=== PATIENT | male | born 1940 | race Caucasian/White ===

== ENCOUNTER 2019-03-23 09:45 | Day surgery (SDC) | payer MEDICARE, SELFPAY ==
[2019-03-13 13:26] VITALS: BMI 26.9
--- NOTE | 2019-03-14 08:08 | HP_ITS ---
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 Is patient in pain?: No Allergies Iodinated Contrast- Oral and IV Dye [CONTRASTS] Allergy (Verified 03/13/19 13:17) Hives azelaic acid [From Finacea] Adverse Reaction (Verified 03/13/19 13:17) Rash cephalexin [From Keflex] Adverse Reaction (Verified 03/13/19 13:17) Rash ciprofloxacin [From Cipro] Adverse Reaction (Verified 03/13/19 13:17) Nausea doxazosin [From Cardura] Adverse Reaction (Verified 03/13/19 13:17) Nausea ketoconazole Adverse Reaction (Verified 03/13/19 13:17) Diarrhea levofloxacin Adverse Reaction (Verified 03/13/19 13:17) Rash meloxicam [From Mobic] Adverse Reaction (Verified 03/13/19 13:17) Nausea misoprostol [From Cytotec] Adverse Reaction (Verified 03/13/19 13:17) Nausea nabumetone [From Relafen] Adverse Reaction (Verified 03/13/19 13:17) Nausea NSAIDS (Non-Steroidal Anti-Inflamma Adverse Reaction (Verified 03/13/19 13:17) Nausea sulfamethoxazole [From Bactrim] Adverse Reaction (Verified 03/13/19 13:17) Nausea terbinafine Adverse Reaction (Verified 03/13/19 13:17) Nausea trimethoprim [From Bactrim] Adverse Reaction (Verified 03/13/19 13:17) Nausea valdecoxib [From Bextra] Adverse Reaction (Verified 03/13/19 13:17) Other Medications Acetaminophen [Tylenol] 500 mg PO PRN PRN 04/03/17 [History Confirmed 03/13/19] Butalbital/Aspirin/Caffeine [Onzhyvigau-LFC-Usmugljp Cap] 1 cap PO DAILY PRN PRN 04/03/17 [History Confirmed 03/13/19] Finasteride [Proscar] 5 mg PO DAILY 04/03/17 [History Confirmed 03/13/19] Hydrochlorothiazide 12.5 mg PO DAILY 04/03/17 [History Confirmed 03/13/19] Hydrocortisone 2.5% Crm 1 applic TOPICAL PRN PRN 04/03/17 [History Confirmed 03/13/19] Meclizine HCl [Antivert] 25 mg PO TID PRN PRN #14 tab 04/03/17 [Rx Confirmed 03/13/19] Multivitamin 1 tab PO DAILY 04/03/17 [History Confirmed 03/13/19] Quinapril HCl [Accupril] 5 mg PO DAILY 04/03/17 [History Confirmed 03/13/19] Tamsulosin HCl [Flomax] 0.4 mg PO DAILY 04/03/17 [History Confirmed 03/13/19] metroNIDAZOLE 0.75% [Metrogel Vaginal] 1 applicatio TOPICAL BID 04/03/17 [History Confirmed 03/13/19] doxycycline hyclate 20 mg tablet 100 mg PO ONCE tab 03/13/19 [History Confirmed 03/13/19] sildenafil 50 mg tablet 20 mg PO PRN PRN tab 03/13/19 [History Confirmed 03/13/19] peg 3350-electrolytes 236 gram-22.74 gram-6.74 gram-5.86 gram solution 4,000 ml PO ONCE #4000 ml 03/14/19 [Rx] PFSH Medical History (Updated 03/13/19 @ 13:34 by Anh Baeza) Abdominal pain (Acute) Arthritis (Acute) BPH (benign prostatic hyperplasia) (Acute) History of back problems (Acute) History of hiatal hernia (Acute) History of kidney stones (Acute) Right inguinal hernia (Acute) Hypertension (Chronic) Surgical History (Updated 03/13/19 @ 13:14 by Anh Baeza) History of bilateral cataract extraction (Acute) History of hemorrhoidectomy (Acute) History of laparoscopic cholecystectomy (Acute) Hx of repair of left rotator cuff (Acute) Hx of repair of right rotator cuff (Acute) history exacorporeal shock wave lithrotripsy (Acute) history lap hiatal hernia repair (Acute) history repair left thumb (Acute) history ureteral stent insertion (Acute) Family History (Updated 03/13/19 @ 13:15 by Anh Baeza) Father Colon cancer Mother Cancer lung Hypertension Brother Cancer Social History (Updated 03/14/19 @ 08:08 by Jasmyne Mahan PA-C) Smoking Status: Former smoker alcohol intake: current alcohol intake frequency: a few times a month substance use type: does not use HPI HPI HPI: JAVIER BOND, is a 78 M who presents to the office today for HPI HPI Surgical H&P: Yes HPI: JAVIER BOND, is a 78 pleasant, gentleman who presents to the office today for possible right inguinal hernia and colonoscopy screening. Patient was evaluated by his PCP, Dr. Lisandro Alvarado, with the complaint at that time of mid abdominal/umbilical pain. Patient notes since August he hasn't felt well overall. Patient notes he felt nauseated intermittently. His appetite has been good. He has also within the last 2-3 weeks noted increasing constipation which has improved with Miralax and including fruit in every meal. Patient states his last colonoscopy was with Dr. Venegas on 08/15/2013 findings included non- bleeding internal hemorrhoids, redundant colon otherwise unremarkable colon. Recommended repeat in 5 years, however his PCP noted he did not have to have anymore. Patient notes his father at age 42 from colon cancer. Patient also notes he has urgency with bowel movements and they are more liquidy when this occurs. He is unsure of which certain food that may aggravates this. Patient does note he has gradually lost weight unintentionally. Looking back through charting, last year he weighed 196 and now currently weighs 184 pounds. Patient denies dysphagia, heartburn symptoms. He notes Dr. Shashank Alvarado performed a laparoscopic Rupinder in 2008. Patient was unsure if his abdominal discomfort could be from the repair, however he does state the symptoms he was having prior to that procedure are resolved and have not returned. Patient was evaluated by Shari Valdivia for a colonoscopy 2 weeks ago, however patient was also noting right groin discomfort which can become sharp. It was brought to the attention of the patient that Dr. Shashank Alvarado does perform colonoscopies and can evaluate the patient for a right inguinal hernia. Patient called into our office this morning in regards to the right groin bulge and was asking symptoms to look out for in case this were to become an emergency. Patient has paid very close attention to bowel movements as to not strain. He was scheduled to see Dr. Alvarado upon his return on 03/22, however was anxious in regards to the groin pain. Patient notes again dating back to August he has felt intermittent nausea. No lack of appetite. He has paid very close attention to his bowels as noted above. 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 Patient noticed a burning, sometimes sharp sensation in his right groin when he was lifting suit cases this past time to [place]. Patient stated he had not noticed a bulge until more recently, December maybe January per patient. Patient states at the end of the day, he notes the bulge is more noticeable and by the morning the bulge is completely gone. He has not tried to reduce the bulge himself. He notes he has not had to because it reduces itself. Patient denies previous hernia repair other than the Hiatal hernia. Patient denies cardiac and pulmonary disease. He denies previous myocardial infarction, stroke and blood clots. Patient does note swelling of the legs and ankles bilaterally. Today he notes his right ankle is more swollen than the left. He denies wearing compression stockings. He does note having neuropathy, which he believes may be from his back. He notes having chronic back pain for which he sees Dr. Schrader, pain management for. Patient notes it is hard to sit for long periods of time. He is unable to exercise on a regular basis due to the back pain. He used to swim on a regular basis however he is unable to do so. Patient also has a history of BPH for which he is on Flomax for. ROS General General: Yes weight change and fatigue; no appetite, colon cancer, breast cancer or weakness HEENT HEENT: No difficulty swallowing, eye injury, eye surgery, swollen glands or hoarseness Endo Endocrine: No thyroid disease, diabetes mellitus, thyroid cancer, Hair loss, heat intolerance or cold intolerance Skin Skin: No rash or changing moles Breast Breast: No left breast lump, right breast lump, nipple discharge, breast pain, abnormal mammogram, abnormal US or breast enlargement Musc Musculoskeletal: Yes back problems and arthritis; no rheumatoid arthritis, gout or joint pain Cardio Cardiovascular: Yes high blood pressure; no murmur, pacemaker, heart disease, atrial fibrillation, heart attack, heart stent, palpitations, shortness of breat with exertion or chest pain Psych Psychiatric: No depression, anxiety or hearing voices Resp Respiratory: No shortness of breath, No sleep apnea, No cough, No COPD, No asthma, No emphysema, No wheezing Gastro Gastrointestinal: Yes abdominal pain, Yes nausea or vomiting, Yes diarrhea, Yes constipation, No blood in stool, No acid reflux, Yes hemorrhoids, No ulcers, No gallbladder problem, No black,tarry stools John Hematologic: No blood thinners, No blood disorders, No bleeding, No anemia, No blood clots Neuro Neurologic: No system reviewed and no additional complaints, except as docu, No as per HPI, No abnormal walking, No abnormal hearing, No abnormal movements, No abnormal speech, No behavioral changes, No burning sensations, No confusion, No seizure-like activity, No unsteadiness, No dizziness, No localized weakness, No frequent falls, No headache(s), No lack of coordination, No loss of vision, No memory loss, No numbness, No other visual disturbances, No radiating pain, No restless legs, No sensory deficit, No fainting, No tingling, No tremor(s), No weakness, No other Exam Const General: cooperative, healthy appearing, comfortable, no acute distress [facility] Head: normal to inspection Eyes General: appearance normal, both eyes and all related structures Neck Neck: normal visual inspection Neck mass: No Carotids: no bruits Chest Breast Palpation: No nipple discharge Resp Effort & Inspection: normal respiratory effort Auscultation: clear to auscultation bilaterally Cardio Rate: regular rate Rhythm: regular rhythm Heart Sounds: no murmurs GI Inspection: normal to inspection Palpation: soft, hernia (bilateral reducible inguinal hernias. No umbilical hernia palpated) Auscultation: normal bowel sounds Other: Deep concave umbilicus noted. Again no umbilical hernia appreciated on exam. Bilateral inguinal hernias with notable bowel involvement. Easily reducible. Skin General: no rashes or lesions noted Neuro General: no focal motor deficits, CN's II-XI intact bilaterally Extrem Other: Bilateral ankle swelling. No edema noted. No calf pain noted. Lack of hair bilaterally noted on lower legs. Psych Appearance: grossly normal Affect: normal affect Assessment & Plan 1. Hernia K46.9 2. Family history of colon cancer in father Z80.0 3. Change in bowel habits R19.4 4. Non-recurrent bilateral inguinal hernia without obstruction or gangrene K40.20 5. Right lower quadrant abdominal pain R10.31 Plan I am seeing this patient in Dr. Alvarado's absence. I am recommending the patient have a colonoscopy to rule out any colonic etiology. Dr. Alvarado will perform a colonoscopy with possible biopsies. We will use Golytely for bowel prep due to patient wanting the best result for bowel prep and noting Miralax does not always help to clean him out. Procedure details, risks and benefits have been explained. He is scheduled for the colonoscopy on 03/[address] Alvarado returns. Patient will follow-up after his colonoscopy with Dr. Alvarado to discuss plan of approach in regards to hernia repair. I have briefly discussed a laparoscopic approach with the patient, however will leave the final decision to Dr. Alvarado. Patient is a very pleasant 78 y/o male who was very appreciative of the quick office visit today. Time spent was 60 minutes. Plan Detail Other Orders Orders: Colonoscopy 03/13/19 Coding Level of Care Code Off vis,new,level 3 Diagnoses Hernia K46.9 Family history of colon cancer in father Z80.0 Change in bowel habits R19.4 Non-recurrent bilateral inguinal hernia without obstruction or gangrene K40.20 ??Obstruction and gangrene presence: without obstruction or gangrene ??Recurrence: non-recurrent Right lower quadrant abdominal pain R10.31 ??Abdominal location: right lower quadrant 03/14/19 0808 <Electronically signed by Jasmyne sinclair PA-C> Date _ Jasmyne Mahan PA-C I concur with the above findings. History and physical has been reviewed. I have re-examined the patient. There are no clinical changes since date of exam.
[2019-03-23 10:09] VITALS: BP 126/65; PULSE 73; RESP 16; TEMP 36.9; O2SAT 96; BMI 24.3
[2019-03-23 11:30] VITALS: BP 103/60; BP 126/65; PULSE 88; RESP 16; TEMP 36.4; O2SAT 97
[2019-03-23 11:35] VITALS: BP 106/61; BP 126/65; PULSE 72; RESP 16; O2SAT 96
[2019-03-23 11:40] VITALS: BP 126/65; BP 98/57; PULSE 82; RESP 16; O2SAT 98
[2019-03-23 11:45] VITALS: BP 104/62; BP 126/65; PULSE 80; RESP 16; TEMP 36.6; O2SAT 97
[2019-03-23 12:00] VITALS: BP 126/65
--- NOTE | 2019-03-28 10:43 | OP.ENDO_ITS ---
03/28/2019 Lisandro Alvarado [address] [place] [address] Re : Colonoscopy procedure for Eric Tariq Dear Dr. Alvarado This procedure was performed on Saturday, March 23, 2019. My impressions and recommendations are as follows: Impressions : - Non-thrombosed external hemorrhoids, non-thrombosed internal hemorrhoids, internal hemorrhoids that prolapse with straining, but spontaneously regress to the resting position (Grade II) and enlarged prostate found on digital rectal exam. - Diverticulosis in the sigmoid colon and in the descending colon. - Tortuous colon. - The examination was otherwise normal. - No specimens collected. Recommendations : - Discharge patient to home. - Resume previous diet. - Continue present medications. - Repeat colonoscopy in 5 years for surveillance. - Return to my office in 1 week. No source for abdominal pain. Plan further evaluation and treatment of hemorrhoids My findings are described in the full procedure note, which is enclosed. If I can be of further assistance, please feel free to contact me at Doctor phone number(s): Work: . Sincerely, Shashank Alvarado MD 03/23/2019 11:38:47 AM This report has been signed electronically.
== END 2019-03-23 12:19 | disposition home or self-care (01) ==
LOC: EN 09:47 → AC 09:47
PROVIDERS: Family Provider Family Medicine; PCP Family Medicine; Referring Provider Family Medicine; Visit Provider Surgery
PROC: 0DJD8ZZ Inspection of Lower Intestinal Tract, Via Natural or Artificial Opening Endoscopic (ICD-10-PCS; CPT 45378; principal; 2019-03-23 10:40)
DX: Z12.11 Encounter for screening for malignant neoplasm of colon (principal); K64.1 Second degree hemorrhoids; K64.4 Residual hemorrhoidal skin tags; K57.30 Diverticulosis of large intestine without perforation or abscess without bleeding; Q43.8 Other specified congenital malformations of intestine; K40.20 Bilateral inguinal hernia, without obstruction or gangrene, not specified as recurrent; K59.00 Constipation, unspecified; I10 Essential (primary) hypertension; M19.90 Unspecified osteoarthritis, unspecified site; M79.89 Other specified soft tissue disorders; M54.9 Dorsalgia, unspecified; G89.29 Other chronic pain; N40.0 Benign prostatic hyperplasia without lower urinary tract symptoms; Z88.8 Allergy status to other drugs, medicaments and biological substances; Z88.6 Allergy status to analgesic agent; Z88.1 Allergy status to other antibiotic agents; Z88.3 Allergy status to other anti-infective agents; Z88.2 Allergy status to sulfonamides; Z87.442 Personal history of urinary calculi; Z87.891 Personal history of nicotine dependence; Z80.0 Family history of malignant neoplasm of digestive organs
CPT/HCPCS: G0105; J7120

== ENCOUNTER 2019-04-13 07:09 | Day surgery (SDC) | payer MEDICARE, SELFPAY ==
--- NOTE | 2019-03-14 08:08 | HP_ITS ---
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 Is patient in pain?: No Allergies Iodinated Contrast- Oral and IV Dye [CONTRASTS] Allergy (Verified 03/13/19 13:17) Hives azelaic acid [From Finacea] Adverse Reaction (Verified 03/13/19 13:17) Rash cephalexin [From Keflex] Adverse Reaction (Verified 03/13/19 13:17) Rash ciprofloxacin [From Cipro] Adverse Reaction (Verified 03/13/19 13:17) Nausea doxazosin [From Cardura] Adverse Reaction (Verified 03/13/19 13:17) Nausea ketoconazole Adverse Reaction (Verified 03/13/19 13:17) Diarrhea levofloxacin Adverse Reaction (Verified 03/13/19 13:17) Rash meloxicam [From Mobic] Adverse Reaction (Verified 03/13/19 13:17) Nausea misoprostol [From Cytotec] Adverse Reaction (Verified 03/13/19 13:17) Nausea nabumetone [From Relafen] Adverse Reaction (Verified 03/13/19 13:17) Nausea NSAIDS (Non-Steroidal Anti-Inflamma Adverse Reaction (Verified 03/13/19 13:17) Nausea sulfamethoxazole [From Bactrim] Adverse Reaction (Verified 03/13/19 13:17) Nausea terbinafine Adverse Reaction (Verified 03/13/19 13:17) Nausea trimethoprim [From Bactrim] Adverse Reaction (Verified 03/13/19 13:17) Nausea valdecoxib [From Bextra] Adverse Reaction (Verified 03/13/19 13:17) Other Medications Acetaminophen [Tylenol] 500 mg PO PRN PRN 04/03/17 [History Confirmed 03/13/19] Butalbital/Aspirin/Caffeine [Dnokowbpto-WAT-Qiskcmfj Cap] 1 cap PO DAILY PRN PRN 04/03/17 [History Confirmed 03/13/19] Finasteride [Proscar] 5 mg PO DAILY 04/03/17 [History Confirmed 03/13/19] Hydrochlorothiazide 12.5 mg PO DAILY 04/03/17 [History Confirmed 03/13/19] Hydrocortisone 2.5% Crm 1 applic TOPICAL PRN PRN 04/03/17 [History Confirmed 03/13/19] Meclizine HCl [Antivert] 25 mg PO TID PRN PRN #14 tab 04/03/17 [Rx Confirmed 03/13/19] Multivitamin 1 tab PO DAILY 04/03/17 [History Confirmed 03/13/19] Quinapril HCl [Accupril] 5 mg PO DAILY 04/03/17 [History Confirmed 03/13/19] Tamsulosin HCl [Flomax] 0.4 mg PO DAILY 04/03/17 [History Confirmed 03/13/19] metroNIDAZOLE 0.75% [Metrogel Vaginal] 1 applicatio TOPICAL BID 04/03/17 [History Confirmed 03/13/19] doxycycline hyclate 20 mg tablet 100 mg PO ONCE tab 03/13/19 [History Confirmed 03/13/19] sildenafil 50 mg tablet 20 mg PO PRN PRN tab 03/13/19 [History Confirmed 03/13/19] peg 3350-electrolytes 236 gram-22.74 gram-6.74 gram-5.86 gram solution 4,000 ml PO ONCE #4000 ml 03/14/19 [Rx] PFSH Medical History (Updated 03/13/19 @ 13:34 by Anh Baeza) Abdominal pain (Acute) Arthritis (Acute) BPH (benign prostatic hyperplasia) (Acute) History of back problems (Acute) History of hiatal hernia (Acute) History of kidney stones (Acute) Right inguinal hernia (Acute) Hypertension (Chronic) Surgical History (Updated 03/13/19 @ 13:14 by Anh Baeza) History of bilateral cataract extraction (Acute) History of hemorrhoidectomy (Acute) History of laparoscopic cholecystectomy (Acute) Hx of repair of left rotator cuff (Acute) Hx of repair of right rotator cuff (Acute) history exacorporeal shock wave lithrotripsy (Acute) history lap hiatal hernia repair (Acute) history repair left thumb (Acute) history ureteral stent insertion (Acute) Family History (Updated 03/13/19 @ 13:15 by Anh Baeza) Father Colon cancer Mother Cancer lung Hypertension Brother Cancer Social History (Updated 03/14/19 @ 08:08 by Jasmyne Mahan PA-C) Smoking Status: Former smoker alcohol intake: current alcohol intake frequency: a few times a month substance use type: does not use HPI HPI HPI: JAVIER BOND, is a 78 M who presents to the office today for HPI HPI Surgical H&P: Yes HPI: JAVIER BOND, is a 78 pleasant, gentleman who presents to the office today for possible right inguinal hernia and colonoscopy screening. Patient was evaluated by his PCP, Dr. Lisandro Alvarado, with the complaint at that time of mid abdominal/umbilical pain. Patient notes since August he hasn't felt well overall. Patient notes he felt nauseated intermittently. His appetite has been good. He has also within the last 2-3 weeks noted increasing constipation which has improved with Miralax and including fruit in every meal. Patient states his last colonoscopy was with Dr. Venegas on 08/15/2013 findings included non- bleeding internal hemorrhoids, redundant colon otherwise unremarkable colon. Recommended repeat in 5 years, however his PCP noted he did not have to have anymore. Patient notes his father at age 42 from colon cancer. Patient also notes he has urgency with bowel movements and they are more liquidy when this occurs. He is unsure of which certain food that may aggravates this. Patient does note he has gradually lost weight unintentionally. Looking back through charting, last year he weighed 196 and now currently weighs 184 pounds. Patient denies dysphagia, heartburn symptoms. He notes Dr. Shashank Alvarado performed a laparoscopic Rupinder in 2008. Patient was unsure if his abdominal discomfort could be from the repair, however he does state the symptoms he was having prior to that procedure are resolved and have not returned. Patient was evaluated by Shari Valdivia for a colonoscopy 2 weeks ago, however patient was also noting right groin discomfort which can become sharp. It was brought to the attention of the patient that Dr. Shashank Alvarado does perform colonoscopies and can evaluate the patient for a right inguinal hernia. Patient called into our office this morning in regards to the right groin bulge and was asking symptoms to look out for in case this were to become an emergency. Patient has paid very close attention to bowel movements as to not strain. He was scheduled to see Dr. Alvarado upon his return on 03/22, however was anxious in regards to the groin pain. Patient notes again dating back to August he has felt intermittent nausea. No lack of appetite. He has paid very close attention to his bowels as noted above. 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 Patient noticed a burning, sometimes sharp sensation in his right groin when he was lifting suit cases this past time to [place]. Patient stated he had not noticed a bulge until more recently, December maybe January per patient. Patient states at the end of the day, he notes the bulge is more noticeable and by the morning the bulge is completely gone. He has not tried to reduce the bulge himself. He notes he has not had to because it reduces itself. Patient denies previous hernia repair other than the Hiatal hernia. Patient denies cardiac and pulmonary disease. He denies previous myocardial infarction, stroke and blood clots. Patient does note swelling of the legs and ankles bilaterally. Today he notes his right ankle is more swollen than the left. He denies wearing compression stockings. He does note having neuropathy, which he believes may be from his back. He notes having chronic back pain for which he sees Dr. Schrader, pain management for. Patient notes it is hard to sit for long periods of time. He is unable to exercise on a regular basis due to the back pain. He used to swim on a regular basis however he is unable to do so. Patient also has a history of BPH for which he is on Flomax for. ROS General General: Yes weight change and fatigue; no appetite, colon cancer, breast cancer or weakness HEENT HEENT: No difficulty swallowing, eye injury, eye surgery, swollen glands or hoarseness Endo Endocrine: No thyroid disease, diabetes mellitus, thyroid cancer, Hair loss, heat intolerance or cold intolerance Skin Skin: No rash or changing moles Breast Breast: No left breast lump, right breast lump, nipple discharge, breast pain, abnormal mammogram, abnormal US or breast enlargement Musc Musculoskeletal: Yes back problems and arthritis; no rheumatoid arthritis, gout or joint pain Cardio Cardiovascular: Yes high blood pressure; no murmur, pacemaker, heart disease, atrial fibrillation, heart attack, heart stent, palpitations, shortness of breat with exertion or chest pain Psych Psychiatric: No depression, anxiety or hearing voices Resp Respiratory: No shortness of breath, No sleep apnea, No cough, No COPD, No asthma, No emphysema, No wheezing Gastro Gastrointestinal: Yes abdominal pain, Yes nausea or vomiting, Yes diarrhea, Yes constipation, No blood in stool, No acid reflux, Yes hemorrhoids, No ulcers, No gallbladder problem, No black,tarry stools John Hematologic: No blood thinners, No blood disorders, No bleeding, No anemia, No blood clots Neuro Neurologic: No system reviewed and no additional complaints, except as docu, No as per HPI, No abnormal walking, No abnormal hearing, No abnormal movements, No abnormal speech, No behavioral changes, No burning sensations, No confusion, No seizure-like activity, No unsteadiness, No dizziness, No localized weakness, No frequent falls, No headache(s), No lack of coordination, No loss of vision, No memory loss, No numbness, No other visual disturbances, No radiating pain, No restless legs, No sensory deficit, No fainting, No tingling, No tremor(s), No weakness, No other Exam Const General: cooperative, healthy appearing, comfortable, no acute distress [facility] Head: normal to inspection Eyes General: appearance normal, both eyes and all related structures Neck Neck: normal visual inspection Neck mass: No Carotids: no bruits Chest Breast Palpation: No nipple discharge Resp Effort & Inspection: normal respiratory effort Auscultation: clear to auscultation bilaterally Cardio Rate: regular rate Rhythm: regular rhythm Heart Sounds: no murmurs GI Inspection: normal to inspection Palpation: soft, hernia (bilateral reducible inguinal hernias. No umbilical hernia palpated) Auscultation: normal bowel sounds Other: Deep concave umbilicus noted. Again no umbilical hernia appreciated on exam. Bilateral inguinal hernias with notable bowel involvement. Easily reducible. Skin General: no rashes or lesions noted Neuro General: no focal motor deficits, CN's II-XI intact bilaterally Extrem Other: Bilateral ankle swelling. No edema noted. No calf pain noted. Lack of hair bilaterally noted on lower legs. Psych Appearance: grossly normal Affect: normal affect Assessment & Plan 1. Hernia K46.9 2. Family history of colon cancer in father Z80.0 3. Change in bowel habits R19.4 4. Non-recurrent bilateral inguinal hernia without obstruction or gangrene K40.20 5. Right lower quadrant abdominal pain R10.31 Plan I am seeing this patient in Dr. Alvarado's absence. I am recommending the patient have a colonoscopy to rule out any colonic etiology. Dr. Alvarado will perform a colonoscopy with possible biopsies. We will use Golytely for bowel prep due to patient wanting the best result for bowel prep and noting Miralax does not always help to clean him out. Procedure details, risks and benefits have been explained. He is scheduled for the colonoscopy on 03/[address] Alvarado returns. Patient will follow-up after his colonoscopy with Dr. Alvarado to discuss plan of approach in regards to hernia repair. I have briefly discussed a laparoscopic approach with the patient, however will leave the final decision to Dr. Alvarado. Patient is a very pleasant 78 y/o male who was very appreciative of the quick office visit today. Time spent was 60 minutes. Plan Detail Other Orders Orders: Colonoscopy 03/13/19 Coding Level of Care Code Off vis,new,level 3 Diagnoses Hernia K46.9 Family history of colon cancer in father Z80.0 Change in bowel habits R19.4 Non-recurrent bilateral inguinal hernia without obstruction or gangrene K40.20 ??Obstruction and gangrene presence: without obstruction or gangrene ??Recurrence: non-recurrent Right lower quadrant abdominal pain R10.31 ??Abdominal location: right lower quadrant 03/14/19 0808 <Electronically signed by Jasmyne sinclair PA-C> Date _ Jasmyne Mahan PA-C I have re-examined the patient. There are no clinical changes since date of exam.
[2019-03-30 15:00] VITALS: BMI 24.3
--- NOTE | 2019-04-10 09:00 | EKG12_ITS ---
Test Reason : PRE-OP Blood Pressure : / mmHG Vent. Rate : 072 BPM Atrial Rate : 072 BPM P-R Int : 174 ms QRS Dur : 090 ms QT Int : 392 ms P-R-T Axes : 075 020 062 degrees QTc Int : 429 ms Sinus rhythm with occasional Premature ventricular complexes Otherwise normal ECG Confirmed by MARINO FAIRBANKS, JEFF ([id number]), book editor BENY MASTERS ([id number]) on 04/12/2019 1:31:23 PM Referred By: Shashank Alvarado Confirmed By:JEFF PICHARDO MD
[2019-04-10 09:49] LABS: Hematocrit 43.8 % (40-54); Hemoglobin 14.2 g/dL (13.0-16.5); Mean Corp Hgb Conc 32.4 g/dL (32-36); Mean Corpuscular Hgb 30.3 pg (27.0-32.0); Mean Corpuscular Volume 93.6 fL (80-94); Mean Platelet Vol. 10.7 fl (6.2-12.0); Platelet Count 154 K/mm3 (150-450); RBC Distribution Width CV 12.2 % (11.6-14.6); RBC Distribution Width SD 42.3 fl (35.1-43.9); Red Blood Count 4.68 M/mm3 (4.6-6.2); White Blood Count 5.2 K/mm3 (4.4-11.0)
[2019-04-10 10:15] LABS: Anion Gap 5 (5-15); BUN 15 mg/dL (7-18); BUN/Creat Ratio 14.3 RATIO (10-20); Calcium,Total 9.6 mg/dL (8.5-10.1); Chloride 104 mmol/L (98-107); Creatinine, Serum 1.05 mg/dL (0.70-1.30); EST Glomerular Filtration Rate 73 mL/min (>60); Est Glom Filt Rate - Afr Amer 88 mL/min (>60); Glucose 86 mg/dL (74-106); Potassium 3.9 mmol/L (3.5-5.1); Sodium Level 142 mmol/L (136-145)
[2019-04-13] VITALS (9 sets, daily range): BP systolic 108–142; BP diastolic 52–82; PULSE 70–82; RESP 16–18; TEMP 36.3–36.8; O2SAT 97–100; BMI 24.9
--- NOTE | 2019-04-13 08:20 | HP.PCM_ITS ---
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 Required: No Is patient in pain?: No Allergies Iodinated Contrast- Oral and IV Dye [CONTRASTS] Allergy (Verified 03/30/19 15:00) Hives azelaic acid [From Finacea] Adverse Reaction (Verified 03/30/19 15:00) Rash cephalexin [From Keflex] Adverse Reaction (Verified 03/30/19 15:00) Rash ciprofloxacin [From Cipro] Adverse Reaction (Verified 03/30/19 15:00) Nausea doxazosin [From Cardura] Adverse Reaction (Verified 03/30/19 15:00) Nausea ketoconazole Adverse Reaction (Verified 03/30/19 15:00) Diarrhea levofloxacin Adverse Reaction (Verified 03/30/19 15:00) Rash meloxicam [From Mobic] Adverse Reaction (Verified 03/30/19 15:00) Nausea misoprostol [From Cytotec] Adverse Reaction (Verified 03/30/19 15:00) Nausea nabumetone [From Relafen] Adverse Reaction (Verified 03/30/19 15:00) Nausea NSAIDS (Non-Steroidal Anti-Inflamma Adverse Reaction (Verified 03/30/19 15:00) Nausea sulfamethoxazole [From Bactrim] Adverse Reaction (Verified 03/30/19 15:00) Nausea terbinafine Adverse Reaction (Verified 03/30/19 15:00) Nausea trimethoprim [From Bactrim] Adverse Reaction (Verified 03/30/19 15:00) Nausea valdecoxib [From Bextra] Adverse Reaction (Verified 03/30/19 15:00) Other Medications Acetaminophen [Tylenol] 500 mg PO PRN PRN 04/03/17 [History Confirmed 03/30/19] Butalbital/Aspirin/Caffeine [Opyyeuggkr-OGM-Mxamrmhk Cap] 1 cap PO DAILY PRN PRN 04/03/17 [History Confirmed 03/30/19] Finasteride [Proscar] 5 mg PO DAILY 04/03/17 [History Confirmed 03/30/19] Hydrochlorothiazide 12.5 mg PO DAILY 04/03/17 [History Confirmed 03/30/19] Hydrocortisone 2.5% Crm 1 applic TOPICAL PRN PRN 04/03/17 [History Confirmed 03/30/19] Meclizine HCl [Antivert] 25 mg PO TID PRN PRN #14 tab 04/03/17 [Rx Confirmed 03/30/19] Multivitamin 1 tab PO DAILY 04/03/17 [History Confirmed 03/30/19] Quinapril HCl [Accupril] 5 mg PO DAILY 04/03/17 [History Confirmed 03/30/19] Tamsulosin HCl [Flomax] 0.4 mg PO DAILY 04/03/17 [History Confirmed 03/30/19] metroNIDAZOLE 0.75% [Metrogel Vaginal] 1 applicatio TOPICAL BID 04/03/17 [History Confirmed 03/30/19] doxycycline hyclate 20 mg tablet 100 mg PO MOWEFR tab 03/13/19 [History Confirmed 03/30/19] sildenafil 50 mg tablet 20 mg PO PRN PRN tab 03/13/19 [History Confirmed 03/30/19] PFSH Medical History (Updated 03/30/19 @ 18:21 by Shashank Alvarado MD) Inguinal hernia bilateral, non-recurrent (Acute) Abdominal pain (Acute) Arthritis (Acute) BPH (benign prostatic hyperplasia) (Acute) History of back problems (Acute) History of hiatal hernia (Acute) History of kidney stones (Acute) Right inguinal hernia (Acute) Hypertension (Chronic) Surgical History (Updated 03/30/19 @ 14:59 by Lelia Wolfe) History of bilateral cataract extraction (Acute) History of colonoscopy (Acute ~02/2019) History of hemorrhoidectomy (Acute) History of laparoscopic cholecystectomy (Acute) Hx of repair of left rotator cuff (Acute) Hx of repair of right rotator cuff (Acute) history exacorporeal shock wave lithrotripsy (Acute) history lap hiatal hernia repair (Acute) history repair left thumb (Acute) history ureteral stent insertion (Acute) Family History Father Colon cancer Mother Cancer lung Hypertension Brother Cancer Social History (Updated 03/30/19 @ 18:23 by Shashank Alvarado MD) Smoking Status: Former smoker alcohol intake: current alcohol intake frequency: a few times a month substance use type: does not use HPI HPI HPI: ERIC BOND, is a 78 M who presents to the office today for HPI HPI Surgical H&P: Yes HPI: ERIC BOND, is a 78 M who presents to the office today for surgical follow-up of a right inguinal hernia. He was seen by Jasmyne Mahan in my absence on March 13, 2019. Her history is as follows: HPI HPI Surgical H&P: Yes HPI: ERIC BOND, is a 78 pleasant, gentleman who presents to the office today for possible right inguinal hernia and colonoscopy screening. Patient was evaluated by his PCP, Dr. Lisandro Alvarado, with the complaint at that time of mid abdominal/umbilical pain. Patient notes since August he hasn't felt well overall. Patient notes he felt nauseated intermittently. His appetite has been good. He has also within the last 2-3 weeks noted increasing constipation which has improved with Miralax and including fruit in every meal. Patient states his last colonoscopy was with Dr. Venegas on 08/15/2013 findings included non- bleeding internal hemorrhoids, redundant colon otherwise unremarkable colon. Recommended repeat in 5 years, however his PCP noted he did not have to have anymore. Patient notes his father at age 42 from colon cancer. Patient also notes he has urgency with bowel movements and they are more liquidy when this occurs. He is unsure of which certain food that may aggravates this. Patient does note he has gradually lost weight unintentionally. Looking back through charting, last year he weighed 196 and now currently weighs 184 pounds. Patient denies dysphagia, heartburn symptoms. He notes Dr. Shashank Alvarado performed a laparoscopic Rupinder in 2008. Patient was unsure if his abdominal discomfort could be from the repair, however he does state the symptoms he was having prior to that procedure are resolved and have not returned. Patient was evaluated by Shari Valdivia for a colonoscopy 2 weeks ago, however patient was also noting right groin discomfort which can become sharp. It was brought to the attention of the patient that Dr. Shashank Alvarado does perform colonoscopies and can evaluate the patient for a right inguinal hernia. Patient called into our office this morning in regards to the right groin bulge and was asking symptoms to look out for in case this were to become an emergency. Patient has paid very close attention to bowel movements as to not strain. He was scheduled to see Dr. Alvarado upon his return on 03/22, however was anxious in regards to the groin pain. Patient notes again dating back to August he has felt intermittent nausea. No lack of appetite. He has paid very close attention to his bowels as noted above. 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 Patient noticed a burning, sometimes sharp sensation in his right groin when he was lifting suit cases this past time to [place]. Patient stated he had not noticed a bulge until more recently, December maybe January per patient. Patient states at the end of the day, he notes the bulge is more noticeable and by the morning the bulge is completely gone. He has not tried to reduce the bulge himself. He notes he has not had to because it reduces itself. Patient denies previous hernia repair other than the Hiatal hernia. Patient denies cardiac and pulmonary disease. He denies previous myocardial infarction, stroke and blood clots. Patient does note swelling of the legs and ankles bilaterally. Today he notes his right ankle is more swollen than the left. He denies wearing compression stockings. He does note having neuropathy, which he believes may be from his back. He notes having chronic back pain for which he sees Dr. Schrader, pain management for. Patient notes it is hard to sit for long periods of time. He is unable to exercise on a regular basis due to the back pain. He used to swim on a regular basis however he is unable to do so. Patient also has a history of BPH for which he is on Flomax for. I subsequently proceed with colonoscopy with results as noted: [facility] Medical Records Department [address] [place] [address] Operative Report - Endoscopy MR#: [id number]:[id number] Name: ERIC BOND Loida #:[id number] : [id number]: Shashank Alvarado MD PCP:Lisandro Alvarado III, MD Status:DEP [facility] 03/28/2019 Lisandro Alvarado Iii [address] [place] [address] Re : Colonoscopy procedure for Eric Bond Dear Dr. Alvarado This procedure was performed on Saturday, March 23, 2019. My impressions and recommendations are as follows: Impressions : - Non-thrombosed external hemorrhoids, non-thrombosed internal hemorrhoids, internal hemorrhoids that prolapse with straining, but spontaneously regress to the resting position (Grade II) and enlarged prostate found on digital rectal exam. - Diverticulosis in the sigmoid colon and in the descending colon. - Tortuous colon. - The examination was otherwise normal. - No specimens collected. Recommendations : - Discharge patient to home. - Resume previous diet. - Continue present medications. - Repeat colonoscopy in 5 years for surveillance. - Return to my office in 1 week. No source for abdominal pain. Plan further evaluation and treatment of hemorrhoids My findings are described in the full procedure note, which is enclosed. If I can be of further assistance, please feel free to contact me at Doctor phone number(s): Work: . Sincerely, Shashank Alvarado MD 03/23/2019 11:38:47 AM This report has been signed electronically. 03/28/19 1043 Date Shashank Alvarado MD On today's visit patient complains of a very focal sharp pain that occurred in the right groin last night. It was able to resolve. We tried to retrieve previous operative notes from his lap scopic Rupinder fundoplication but were unable to. We have evidence March 11 of where I performed a laparoscopic cholecystectomy with chronic cholecystitis identified. That was performed at the same time that a Rupinder fundoplication was performed. I only have the pathology results. The patient was questioning as to why the operation took 4 hours rather than 2 hours. He states I saw something black. I do not have recollection of that and cannot obtain the previous records. ROS General General: Yes weight change and fatigue; no appetite, colon cancer, breast cancer or weakness HEENT HEENT: No difficulty swallowing, eye injury, eye surgery, swollen glands or hoarseness Endo Endocrine: No thyroid disease, diabetes mellitus, thyroid cancer, Hair loss, heat intolerance or cold intolerance Skin Skin: No rash or changing moles Breast Breast: No left breast lump, right breast lump, nipple discharge, breast pain, abnormal mammogram, abnormal US or breast enlargement Musc Musculoskeletal: Yes back problems and arthritis; no rheumatoid arthritis, gout or joint pain Cardio Cardiovascular: Yes high blood pressure; no murmur, pacemaker, heart disease, atrial fibrillation, heart attack, heart stent, palpitations, shortness of breat with exertion or chest pain Psych Psychiatric: No depression, anxiety or hearing voices Resp Respiratory: No shortness of breath, No sleep apnea, No cough, No COPD, No asthma, No emphysema, No wheezing Gastro Gastrointestinal: Yes abdominal pain, Yes nausea or vomiting, Yes diarrhea, Yes constipation, No blood in stool, No acid reflux, Yes hemorrhoids, No ulcers, No gallbladder problem, No black,tarry stools John Hematologic: No blood thinners, No blood disorders, No bleeding, No anemia, No blood clots Neuro Neurologic: No weakness Exam Const General: cooperative, healthy appearing, comfortable, no acute distress Nutritional Appearance: underweight Orientation: alert, awake, oriented x3 HENMT Head: normal to inspection Chest Breast Palpation: No nipple discharge Resp Effort & Inspection: normal respiratory effort Auscultation: clear to auscultation bilaterally Cardio Rate: regular rate Rhythm: regular rhythm Heart Sounds: no murmurs GI Palpation: soft, no hepatosplenomegaly Percussion: normal to percussion Other: Testicles are descended bilaterally. Obvious indirect right inguinal hernia easily reducible. Small defect at the left internal ring. Nontender Skin General: no rashes or lesions noted Neuro Cognition: normal cognition Extrem General: no calf tenderness bilaterally Psych Affect: normal affect Assessment & Plan Problems 1. Non-recurrent bilateral inguinal hernia without obstruction or gangrene K40.20 Plan Symptomatic indirect right inguinal hernia. Small asymptomatic left inguinal hernia. In this 78-year-old gentleman I am recommending a right inguinal herniorrhaphy with mesh performed in the Dary technique under monitored anesthesia care and local anesthetic. In detail I have described the technique, benefit, risks, alternatives. We discussed include utilization of mesh. We discussed the risk of recurrence. I have additionally discussed with the patient recommendations as to how he can keep this area nicely reduced leading up until the time of surgery. He has had an opportunity to ask and have questions answered. We will schedule and proceed at his discretion. I very much appreciate the kind opportunity of assisting with his surgical care. The patient has no acute findings on his colonoscopy. Family history of colon cancer in his father. Follow-up colonoscopy recommended at 5 years. CC: Dr. Lisandro Alvarado, ANNETTE Alvarado M.D., F.A.C.S. Coding Level of Care Code Off vis,est,level 3 Diagnoses Non-recurrent bilateral inguinal hernia without obstruction or gangrene K40.20 ??Obstruction and gangrene presence: without obstruction or gangrene ??Recurrence: non-recurrent 03/30/19 1824 <Electronically signed by Shashank joshua MD> Date _ Shashank Alvarado MD Cosigner Signature: Date (if applicable) CC: Lisandro Alvarado III, MD ~ I have re-examined the patient. There are no clinical changes since date of exam.
--- NOTE | 2019-04-13 08:21 | DCINST_ITS ---
Discharge Diet: Light diet - advance as tolerated - if you have questions about your diet instructions, please talk to you doctor. Discharge Activity: May Not Drive - for 1 week or while taking narcotic pain medicine. May shower in (days): 1 Lifting Restrictions: 10 pounds Call your doctor if your incision/area has: Continuous Slow Oozing, Sudden Increased Bleeding, Increased Pain/ Swelling, Increased Redness, Foul Smelling Discharge Call your doctor if you observe: Fever of 101 or Higher Suture Line Care: Avoid Pulling/Pushing, Avoid Pinching/Bending Additional Dressing/Incision Instructions:: Change or remove dressing in 4 days. Leave steri-strips in place for 1 week. Allergies/Adverse Reactions: Allergies Iodinated Contrast- Oral and IV Dye [CONTRASTS] Allergy (Verified 04/09/19 10:13) Hives azelaic acid [From Finacea] Adverse Reaction (Verified 04/09/19 10:13) Rash cephalexin [From Keflex] Adverse Reaction (Verified 04/09/19 10:13) Rash ciprofloxacin [From Cipro] Adverse Reaction (Verified 04/09/19 10:13) Nausea doxazosin [From Cardura] Adverse Reaction (Verified 04/09/19 10:13) Nausea ketoconazole Adverse Reaction (Verified 04/09/19 10:13) Diarrhea levofloxacin Adverse Reaction (Verified 04/09/19 10:13) Rash meloxicam [From Mobic] Adverse Reaction (Verified 04/09/19 10:13) Nausea misoprostol [From Cytotec] Adverse Reaction (Verified 04/09/19 10:13) Nausea nabumetone [From Relafen] Adverse Reaction (Verified 04/09/19 10:13) Nausea NSAIDS (Non-Steroidal Anti-Inflamma Adverse Reaction (Verified 04/09/19 10:13) Nausea sulfamethoxazole [From Bactrim] Adverse Reaction (Verified 04/09/19 10:13) Nausea terbinafine Adverse Reaction (Verified 04/09/19 10:13) Nausea trimethoprim [From Bactrim] Adverse Reaction (Verified 04/09/19 10:13) Nausea valdecoxib [From Bextra] Adverse Reaction (Verified 04/09/19 10:13) Other Medications to take at Discharge Acetaminophen [Tylenol] 500 mg PO PRN PRN 04/03/17 Butalbital/Aspirin/Caffeine [Uvoledxpnh-LRT-Hyivzsoi Cap] 1 cap PO DAILY PRN PRN 04/03/17 Finasteride [Proscar] 5 mg PO DAILY 04/03/17 Hydrochlorothiazide 12.5 mg PO DAILY 04/03/17 Hydrocortisone 2.5% Crm 1 applic TOPICAL PRN PRN 04/03/17 Meclizine HCl [Antivert] 25 mg PO TID PRN PRN #14 tab 04/03/17 Multivitamin 1 tab PO DAILY 04/03/17 Quinapril HCl [Accupril] 5 mg PO DAILY 04/03/17 Tamsulosin HCl [Flomax] 0.4 mg PO DAILY 04/03/17 metroNIDAZOLE 0.75% [Metrogel Vaginal] 1 applicatio TOPICAL BID 04/03/17 doxycycline hyclate 20 mg tablet 100 mg PO MOWEFR tab 03/13/19 sildenafil 50 mg tablet 20 mg PO PRN PRN tab 03/13/19 Primary Care Physician: Lisandro Alvarado III, MD [Primary Care Provider] - Test Results: Test results from this visit will be discussed in further detail at your follow- up appointment, if applicable. Please Follow Up With: Shashank Alvarado MD - [phone] When: Call to make an appointment to be seen in about 10 days.
--- NOTE | 2019-04-13 08:45 | HERN_PTH ---
PATIENT: JAVIER BOND LOC: [facility] U#:[id number] AGE/SX: 78/M ROOM: RE04/13/[address]: Dr. Shashank Alvarado MD : [id number] BED: DIS: 04/13/2019 SPEC #: [id number] RECD: 04/13/19 12:22 STATUS: EFRAIN REKristopher #: [id number] DEMETRICE: 04/13/19 08:[address]: Shashank Alvarado DEPT: SURGICAL PATHOLOGY RECD BY: Dayo Calle ENTERED: 04/13/19 12:40 SP TYPE: Hernia OTHR DR: Dr. Lisandro Alvarado III, MD Tissues: A - HERNIA B - Soft tissues, NOS Procedures: Surgery Specimen Level II Surgery Specimen Level III HEADER OPERATION: Inguinal hernia with mesh PRE-OP DIAGNOSIS: Right inguinal hernia TISSUE SUBMITTED: A - Hernia sac - right inguinal, B - Lipoma - right inguinal MICROSCOPIC DIAGNOSIS A. Soft tissue of right inguinal region, excision: Hernia sac with mild fibrosis. B. soft tissue of right inguinal region, excision: Mature adipose tissue consistent with lipoma of cord. AM:ella 04/16/19 MICROSCOPIC DESCRIPTION Slides are reviewed. GROSS DESCRIPTION A - Received in fixative is one container labeled with the patient's name and designated hernia sac right inguinal. The specimen consists of an irregular piece of lee-pink membranous sac measuring 3 x 1.5 x 0.2 cm. No mass lesion is identified. The entire specimen is submitted in one cassette. B - Received in fixative is one container labeled with the patient's name and designated lipoma. The specimen consists of an irregular piece of lee-yellow adipose tissue measuring 5.5 x 4 x 1 cm. Sections reveal yellow adipose cut surfaces without area of hemorrhage, necrosis or cystic degeneration. Electromyographic Technician sections are submitted in two cassettes. / SJ:ella 04/13/19 TC:5 CPT: 14764, 03350
[2019-04-13] MEDS: Bupivacaine Mpf 0.5% 30 ML VIAL (08:54)
--- NOTE | 2019-04-13 09:41 | PCM.OPRPT ---
Problem List (1) Inguinal hernia bilateral, non-recurrent Status: Acute Qualifiers: Obstruction and gangrene presence: without obstruction or gangrene Recurrence: non-recurrent Qualified Code(s): K40.20 - Bilateral inguinal hernia, without obstruction or gangrene, not specified as recurrent Report of Operation Date of Procedure: 04/13/19 Pre-Operative Diagnosis: Right inguinal hernia Post-Operative Diagnosis: Indirect right inguinal hernia with cord lipoma Surgery/Procedure Performed:: Dary right inguinal herniorrhaphy with excision cord lipoma Description of Surgical Findings:: Timeout informed consent was obtained. 78-year-old gentleman taken out from placement table underwent monitored anesthesia care. Ancef 2 g given intravenous preoperatively. The right groin was sterilely prepped and draped. Percent lidocaine mixed 50-50 with 0.5% Marcaine was used as a local anesthetic. 17 cc was used. Local was instilled. A transverse incision made in the right groin. Sharp dissection carried down through the subcutaneous tissue. The external oblique was identified incised and along with his fascia. The inguinal nerve was identified protected with the cord structures circumferential obtain of the cord structures sharp blunt dissection was used to identify the cord lipoma this was high ligated with 3-0 Vicryl. A small inguinal hernia indirect hernia sac was identified. This was dissected free. Was then ligated with 3-0 Vicryl and the sac was submitted as specimen as well. The direct indirect space nicely dissected free. The transversalis fascia was approximated to itself from the pubic tubercle to the internal ring with a running 3-0 Ethibond. A Bard appreciate keyhole mesh was selected. Lot number [id number] reference #[id number] expiry date 10/23/2023 was selected. It was connected to itself around the internal ring with 3-0 Ethibond. The tails were trimmed. The mesh very nicely was positioned overlying the direct and indirect space. It was secured in position with interrupted 3-0 Ethibond. I felt that I had very nice excellent positioning of this mesh. The external oblique was approximated with interrupted 3-0 Vicryl. Subdermal tissues approximate the same. Skin edges approximated running septic or 4-0 Monocryl. Steri-Strips Telfa and OpSite dressings applied. Sponge and instrument and needle counts were reported the surgeon to be correct. Blood loss minimal. Specimens hernia sac and cord lipoma. Drains none. Blood loss minimal. Shashank Alvarado M.D., F.A.C.S. Type of Anesthesia:: Local MAC Anesthesiologist: López Morales
[2019-04-13] MEDS: HYDROcodone Bitartrate/Apap 5/325 Tablet PO (10:32)
== END 2019-04-13 11:46 | disposition home or self-care (01) ==
LOC: SDC 07:10 → AC 07:14
PROVIDERS: Family Provider Family Medicine; PCP Family Medicine; Referring Provider Surgery; Visit Provider Surgery
PROC: (CPT 49520; principal; 2019-04-13 08:30)
DX: K40.91 Unilateral inguinal hernia, without obstruction or gangrene, recurrent (principal); D17.6 Benign lipomatous neoplasm of spermatic cord; I10 Essential (primary) hypertension; N40.0 Benign prostatic hyperplasia without lower urinary tract symptoms; M19.90 Unspecified osteoarthritis, unspecified site; Z79.82 Long term (current) use of aspirin; Z87.891 Personal history of nicotine dependence; Z79.899 Other long term (current) drug therapy
CPT/HCPCS: 49520; 55520; 36415; 80048; 85027; 88302; 88304; 93005; J7120; C1781; J2405

== ENCOUNTER → 2019-06-12 17:28 | Outpatient (CLI) | payer MEDICARE, SELFPAY ==
[2019-04-13 07:40] VITALS: BMI 24.9
--- NOTE | 2019-06-12 17:34 | CT_ITS ---
STUDY: CT ABDOMEN AND PELVIS WITH CONTRAST REASON FOR EXAM: Male, 78 years old. Right inguinal hernia repair 4 weeks ago, pain RADIATION DOSAGE (If Supplied By Facility): CTDIvol = ( 7.78 ) mGy, DLP = ( 398.97 ) mGycm TECHNIQUE: Transaxial images were obtained from the dome of the diaphragm to the symphysis pubis without oral contrast. 900ML Oral Barium was administered. Sagittal and coronal images were reconstructed. Individualized dose optimization techniques were used for this CT. COMPARISON: None. FINDINGS: Pleural-based nodular densities up to 7 mm in the right lung base. The visualized portions of the heart are within normal limits. Normal liver. Nonvisualization of the gallbladder. There is dilatation of the extrahepatic biliary system. Normal spleen. Normal pancreas. Normal bilateral adrenal glands. 2 mm nonobstructive stone in the right kidney. There are 6-7 nonobstructive stones up to 6 mm in the left kidney. Small hiatal hernia. Normal small intestine. Fecal retention in the colon. The appendix is nonvisualized. Calcified abdominal aorta. Normal inferior vena cava. Normal retroperitoneum. Normal urinary bladder. Mild subcutaneous stranding anterior to the right inguinal canal likely related to the recent surgery. Normal abdominal wall. Degenerative vertebral changes and scoliosis. Spondylolysis of L5. CT/Abdomen/Pel W ORAL Cont Only IMPRESSION: Bilateral nonobstructive calculi. No hydronephrosis. Pleural-based nodular densities in the right lung base. Colonic fecal retention. Small hiatal hernia. Mild subcutaneous stranding anterior to the right inguinal canal. No drainable collection. Electronically Signed: Rene Crawford DO at 19:01 EDT Tel [phone], Service support ,
== END ==
PROVIDERS: Family Provider Family Medicine; PCP Family Medicine; Referring Provider Physician Assistant; Visit Provider Physician Assistant
DX: R10.9 Unspecified abdominal pain (principal)
CPT/HCPCS: 74176

== ENCOUNTER 2019-06-20 16:36 | Emergency (ER) | payer MEDICARE, SELFPAY ==
[2019-06-15 14:55] VITALS: BMI 24.9
[2019-06-20 16:42] VITALS: BP 135/74; PULSE 80; RESP 16; TEMP 36.6; O2SAT 100; BMI 23.1
--- NOTE | 2019-06-20 16:49 | EKG12_ITS ---
Test Reason : TACHYCARDIA/CP Blood Pressure : / mmHG Vent. Rate : 075 BPM Atrial Rate : 075 BPM P-R Int : 154 ms QRS Dur : 096 ms QT Int : 372 ms P-R-T Axes : 062 018 063 degrees QTc Int : 415 ms Normal sinus rhythm Normal ECG Confirmed by SUMMER FAIRBANKS, POOJA ([id number]), mapping editor PATRICE SALDANA ([id number]) on 06/22/2019 10:17:49 A M Referred By: Patrice Mahan Confirmed By:WENDY WHEELER MD
[2019-06-20 17:28] LABS: Absolute Lymphocyte Count 1.76 X10^3/uL (0.83-4.51); Absolute Neutrophil Count 3.4 X10^3/uL (2.0-7.7); Basophil# 0.02 X10^3/uL; Basophil% 0.3 % (0-1); Eosinophil# 0.04 X10^3/uL; Eosinophils% 0.7 % (0-5); Hematocrit 39.9 % (40-54); Hemoglobin 12.9 g/dL (13.0-16.5); Lymphocyte # 1.76 X10^3/ul (4.0); Lymphocyte % 30.6 % (19-41); Mean Corp Hgb Conc 32.3 g/dL (32-36); Mean Corpuscular Hgb 30.6 pg (27.0-32.0); Mean Corpuscular Volume 94.5 fL (80-94); Mean Platelet Vol. 10.1 fl (6.2-12.0); Monocyte# 0.49 X10^3/uL; Monocyte% 8.5 % (0-10); NRBC Flagged by Analyzer 0 % (0-5); Neutrophil # 3.44 X10^3/uL (2.7-7.7); Neutrophil % 59.7 % (47-70); Platelet Count 150 K/mm3 (150-450); RBC Distribution Width CV 12.5 % (11.6-14.6); RBC Distribution Width SD 43.3 fl (35.1-43.9); Red Blood Count 4.22 M/mm3 (4.6-6.2); White Blood Count 5.8 K/mm3 (4.4-11.0)
[2019-06-20 17:36] VITALS: BP 122/54; PULSE 64; RESP 18; O2SAT 100
[2019-06-20 17:51] LABS: Anion Gap 4 (5-15); BUN 23 mg/dL (7-18); BUN/Creat Ratio 20.7 RATIO (10-20); Calcium,Total 9.1 mg/dL (8.5-10.1); Chloride 106 mmol/L (98-107); Creatinine, Serum 1.11 mg/dL (0.70-1.30); EST Glomerular Filtration Rate 68 mL/min (>60); Est Glom Filt Rate - Afr Amer 83 mL/min (>60); Estimated Creatinine Clearance 60.14 ml/min; Glucose 103 mg/dL (74-106); Magnesium 1.9 mg/dL (1.6-2.6); Sodium Level 139 mmol/L (136-145); Thyroid Stim Hormone (TSH) 2.32 uIU/mL (0.358-3.74)
[2019-06-20 18:00] VITALS: BP 122/54; PULSE 72; RESP 18; O2SAT 99
[2019-06-20] MEDS: 0.9% Normal Saline 1,000 ML 150 ML IV (18:00)
--- NOTE | 2019-06-20 18:49 | ED.VISSUMM ---
- ER Visit Summary Date of Service: 06/20/19 Chief Complaint: [Palpitations History of present illness: The patient is a 78-year-old male who presents to the emergency department with palpitations since approximately 9 PM last night. Patient states that his heart will skip beats every now and then. He denies any tachycardia. He denies any chest pain or shortness of breath. He denies any changes medications. He denies any excessive caffeine intake. Patient has not had symptoms like this before. Patient does have history of hypertension and history of BPH.] Physical Examination: [HEENT-PERRLA, EOMI. Cranial nerves II through XII grossly intact. TMs clear. Mucous membranes moist. No adenopathy. Cardiovascular-regular rate and rhythm without murmur. Patient has occasional ectopy noted and on monitor is noted to have occasional PVCs. Lungs-clear to auscultation, chest wall stable without crepitus or subcu emphysema Abdomen-normoactive bowel sounds, soft, nontender, no rebound or rigidity, no peritoneal signs. Extremities-intact ?4, normal range of motion, normal pulses, atraumatic] Test Results: [EKG obtained showed a sinus rhythm with a ventricular rate of 75 bpm with no acute ST segment changes. CBC with differential showed a white count of 5.8, hemoglobin 12.9, hematocrit 40, plates 150. Chemistries unremarkable. Troponin is less than 0.15. TSH was 2.32. Magnesium 1.9.] Emergency Department Course and Treatment: [Was observed on monitoring specialist.] Treatment Plan: [Follow-up with his primary care physician in 3 to 5 days. Patient advised to minimize caffeine intake. Advised to return if chest pain, shortness of breath, syncope, or conditions worsen anyway.] Disposition: [Discharged home stable condition.] Impression: [Palpitations PVCs] This note was generated with [employer] software. It may contain incorrect words, spelling, and punctuation that were not noted in review of the chart prior to signing ED Disposition - Plan for ED Patient: Referrals: Lisandro Alvarado III, MD [Primary Care Provider] -
--- NOTE | 2019-06-20 18:51 | ED.DEP ---
ED Disposition - Plan for ED Patient: Instructions: Palpitations, Premature Ventricular Contractions Referrals: Lisandro Alvarado III, MD [Primary Care Provider] - 3-5 Days
[2019-06-20 19:00] VITALS: BP 123/65; PULSE 73; RESP 16; O2SAT 99
--- NOTE | 2019-06-20 19:01 | ED.RN ---
REVIEWED D/C INSTRUCTIONS, FOLLOW UP CARE, AND S/S THAT WOULD WARRANT A RETURN TO THE ED WITH PT. PT VERBALIZED AN UNDERSTANDING AND DENIES FURTHER QUESTIONS FOR THIS RN. PT SKIN P/W/D, RESP EVEN AND UNLABORED, PT A&O X3, PT A&O X 3, NO DISTRESS NOTED. PT AMBULATED OUT OF ED, GAIT STEADY.
== END 2019-06-20 19:03 | disposition home or self-care (01) ==
LOC: ED 17:03
PROVIDERS: Emergency Provider Emergency Medicine; Family Provider Family Medicine; PCP Family Medicine
DX: R00.2 Palpitations (principal); I49.3 Ventricular premature depolarization; I10 Essential (primary) hypertension; N40.0 Benign prostatic hyperplasia without lower urinary tract symptoms; Z79.899 Other long term (current) drug therapy
CPT/HCPCS: 80048; 83735; 84443; 84484; 85025; 93005; 96360; 99284; J7030; A4216

== ENCOUNTER → 2019-07-03 08:11 | Outpatient (CLI) | payer MEDICARE, SELFPAY ==
[2019-06-15 14:55] VITALS: BMI 24.9
[2019-06-20 16:42] VITALS: BMI 23.1
--- NOTE | 2019-07-03 08:17 | RAD_ITS ---
We are attempting to reach an attending provider to discuss findings. An addendum with communication details will be sent when the communication is complete. EXAM DESCRIPTION: Esophagram CLINICAL HISTORY: 78 years Male, cervical dysphasia, raspy throat COMPARISON: None. TECHNIQUE: A barium meal was administered initially with barium and crystals and later with thin liquid barium. FINDINGS: During the barium swallow, the lateral images, penetration and aspiration of barium was identified. The remainder of the cervical and upper thoracic esophagus appears to be normal. The patient has a moderate-sized hiatal hernia but no gastroesophageal reflux was identified. RAD/Esophagus Only IMPRESSION: 1. Penetration and aspiration was identified during the cervical portion of this esophagram. 2. Funsi-ba-fqhazzbg sized sliding hiatal hernia. Electronically Signed: Sebastian Colon, at 12:49 EDT Tel , Service support ,
== END ==
PROVIDERS: Family Provider Family Medicine; PCP Family Medicine; Referring Provider Otolaryngology Otolaryngology/Facial Plastic Surgery; Visit Provider Otolaryngology Otolaryngology/Facial Plastic Surgery
DX: R13.10 Dysphagia, unspecified (principal)
CPT/HCPCS: 74220

== ENCOUNTER 2019-07-18 08:53 | Day surgery (SDC) | payer MEDICARE, SELFPAY ==
[2019-04-13 07:40] VITALS: BMI 24.9
[2019-07-17 10:57] VITALS: BMI 23.1
--- NOTE | 2019-07-17 10:58 | PCM.HP.BLA ---
Problem List (1) Left groin hernia Status: Acute History and Physical Date of Admission: 07/18/19 [facility] [address] [place], [place] [address] OFFICE VISIT Date of Service: 07/16/19 MR#:[id number] Name: JAVIER BOND #:[id number] : 1940 Provider:Jasmyne Mahan PA-C Age/Sex: 78/M Location:[facility] Status:Signed Intake Vital Signs 07/16/19 Blood Pressure 132/59 H 07/16/19 Blood Pressure Location Rt brachial 07/16/19 Blood Pressure Position Sitting 07/16/19 Respiratory Rate 20 H 07/16/19 Pulse Rate 81 07/16/19 Pulse Ox 99 Intake Visit Reasons: update h&p open [facility] 07-18 RC Chief Complaint: update H&P for [facility] Materials Tech Required: No Is patient in pain?: No Allergies Iodinated Contrast Media [CONTRASTS] Allergy (Verified 07/16/19 13:19) Hives azelaic acid [From Finacea] Adverse Reaction (Verified 07/16/19 13:19) Rash cephalexin [From Keflex] Adverse Reaction (Verified 07/16/19 13:19) Rash ciprofloxacin [From Cipro] Adverse Reaction (Verified 07/16/19 13:19) Nausea doxazosin [From Cardura] Adverse Reaction (Verified 07/16/19 13:19) Nausea ketoconazole Adverse Reaction (Verified 07/16/19 13:19) Diarrhea levofloxacin Adverse Reaction (Verified 07/16/19 13:19) Rash meloxicam [From Mobic] Adverse Reaction (Verified 07/16/19 13:19) Nausea misoprostol [From Cytotec] Adverse Reaction (Verified 07/16/19 13:19) Nausea nabumetone [From Relafen] Adverse Reaction (Verified 07/16/19 13:19) Nausea NSAIDS (Non-Steroidal Anti-Inflamma Adverse Reaction (Verified 07/16/19 13:19) Nausea sulfamethoxazole [From Bactrim] Adverse Reaction (Verified 07/16/19 13:19) Nausea terbinafine Adverse Reaction (Verified 07/16/19 13:19) Nausea trimethoprim [From Bactrim] Adverse Reaction (Verified 07/16/19 13:19) Nausea valdecoxib [From Bextra] Adverse Reaction (Verified 07/16/19 13:19) Other Medications Acetaminophen [Tylenol] 500 mg PO PRN PRN 04/03/17 [History Confirmed 07/16/19] Butalbital/Aspirin/Caffeine [Nlnwejxmhr-YHI-Ndwwzedi Cap] 1 cap PO DAILY PRN PRN 04/03/17 [History Confirmed 07/16/19] Finasteride [Proscar] 5 mg PO DAILY 04/03/17 [History Confirmed 07/16/19] Hydrochlorothiazide 12.5 mg PO DAILY 04/03/17 [History Confirmed 07/16/19] Hydrocortisone 2.5% Crm 1 applic TOPICAL PRN PRN 04/03/17 [History Confirmed 07/16/19] Meclizine HCl [Antivert] 25 mg PO TID PRN PRN #14 tab 04/03/17 [Rx Confirmed 07/16/19] Multivitamin 1 tab PO DAILY 04/03/17 [History Confirmed 07/16/19] Quinapril HCl [Accupril] 5 mg PO DAILY 04/03/17 [History Confirmed 07/16/19] Tamsulosin HCl [Flomax] 0.4 mg PO DAILY 04/03/17 [History Confirmed 07/16/19] doxycycline hyclate 20 mg tablet 100 mg PO BID tab 03/13/19 [History Confirmed 07/16/19] sildenafil 50 mg tablet 20 mg PO PRN PRN tab 03/13/19 [History Confirmed 07/16/19] Methocarbamol [Robaxin] 500 mg PO BID 06/20/19 [History Confirmed 07/16/19] Lorazepam [Ativan] 0.5 mg PO DAILY PRN PRN 07/16/19 [History Confirmed 07/16/19] metronidazole 0.75 % topical cream 1 applic TOPICAL BID 07/16/19 [History Confirmed 07/16/19] omeprazole 20 mg capsule,delayed release 20 mg PO DAILY 07/16/19 [History Confirmed 07/16/19] [facility] Medical History Groin pain (Acute) Inguinal hernia bilateral, non-recurrent (Acute) Abdominal pain (Acute) Arthritis (Acute) BPH (benign prostatic hyperplasia) (Acute) History of back problems (Acute) History of hiatal hernia (Acute) History of kidney stones (Acute) Right inguinal hernia (Acute) Hypertension (Chronic) Surgical History (Updated 07/16/19 @ 13:18 by Lelia Wolfe) History of bilateral cataract extraction (Acute) History of colonoscopy (Acute ~02/2019) History of hemorrhoidectomy (Acute) History of laparoscopic cholecystectomy (Acute) History of right inguinal hernia repair (Acute) Hx of repair of left rotator cuff (Acute) Hx of repair of right rotator cuff (Acute) history exacorporeal shock wave lithrotripsy (Acute) history lap hiatal hernia repair (Acute) history repair left thumb (Acute) history ureteral stent insertion (Acute) Family History Father Colon cancer Mother Cancer lung Hypertension Brother Cancer Social History (Updated 07/17/19 @ 10:57 by Jasmyne Mahan PA-C) Smoking Status: Former smoker alcohol intake: current alcohol intake frequency: a few times a month substance use type: does not use HPI Surgical H&P: Yes HPI: JAVIRE BOND, is a 78 M who presents to the office today for an update history and physical for an upcoming surgical procedure. Patient notes he was in the ED with cardiac palpitations on 06/20/2019. EKG obtained showed a sinus rhythm with a ventricular rate of 75 bpm with no acute ST segment changes. Patient also had a follow-up with his PCP who cleared him for surgery. Patient notes occasional palpitations. Patient also notes a chronic history of constipation for which he takes Miralax and a stool softener daily for . A colonoscopy was completed earlier this year and was completely unremarkable. Patient had a right inguinal hernia repair in March which he had developed sharp, burning discomfort in the area of the repair. Patient was tried on Neurontin which he did not like the effects and discontinued the medication. A CT scan of the pelvis was obtained and demonstrated post-surgical changes. Dr. Alvarado tried a steroid injection in the right inguinal area which helped for 1 week and then similar pain/discomfort returned. It was recommended to the patient to follow-up with his pain specialist for possible further injections in this region. Patient has declined at this point. He is trying topical liniment spearmint ointment over the area which had decreased the discomfort. Patient also has self diagnosed this to possibly be muscle related. Patient also was evaluated by ENT due to feeling as though his glands were swollen. Patient had a Barium swallow which was unremarkable. Patient is also noting increased discomfort in the left groin. ROS General General: Yes weight change and fatigue; no appetite, colon cancer, breast cancer or weakness HEENT HEENT: No difficulty swallowing, eye injury, eye surgery, swollen glands or hoarseness Endo Endocrine: No thyroid disease, diabetes mellitus, thyroid cancer, Hair loss, heat intolerance or cold intolerance Skin Skin: No rash or changing moles Breast Breast: No left breast lump, right breast lump, nipple discharge, breast pain, abnormal mammogram, abnormal US or breast enlargement Musc Musculoskeletal: Yes back problems and arthritis; no rheumatoid arthritis, gout or joint pain Cardio Cardiovascular: Yes high blood pressure; no murmur, pacemaker, heart disease, atrial fibrillation, heart attack, heart stent, palpitations, shortness of breat with exertion or chest pain Psych Psychiatric: No depression, anxiety or hearing voices Resp Respiratory: No shortness of breath, No sleep apnea, No cough, No COPD, No asthma, No emphysema, No wheezing Gastro Gastrointestinal: Yes abdominal pain, Yes nausea or vomiting, Yes diarrhea, Yes constipation, No blood in stool, No acid reflux, Yes hemorrhoids, No ulcers, No gallbladder problem, No black,tarry stools John Hematologic: No blood thinners, No blood disorders, No bleeding, No anemia, No blood clots Neuro Neurologic: No weakness Exam Const General: cooperative, healthy appearing, comfortable, no acute distress [facility] Head: normal to inspection Eyes General: appearance normal, both eyes and all related structures Neck Neck: normal visual inspection Neck mass: No Chest Breast Palpation: No nipple discharge Resp Effort & Inspection: normal respiratory effort Auscultation: clear to auscultation bilaterally Cardio Rate: regular rate Rhythm: regular rhythm Heart Sounds: no murmurs GI Inspection: normal to inspection Palpation: soft Auscultation: normal bowel sounds Skin General: no rashes or lesions noted Neuro General: no focal motor deficits, CN's II-XI intact bilaterally Extrem General: normal to inspection Psych Appearance: grossly normal Affect: normal affect Assessment & Plan Problems 1. Left inguinal hernia K40.[address] Alvarado will plan to perform an open left inguinal hernia repair with mesh under [facility] local. Procedure details, risks and benefits have been reviewed. Patient and his have had the opportunity to ask and have questions answered. Patient verbally understands and agrees with the plan. I have recommended exercises and stretching which he said he is limited due to back pain. He may continue the topical ointment. Coding Level of Care Code No Charge Diagnoses Left inguinal hernia K40.90 Comment Update H&P 07/17/19 1057<Electronically signed by Jasmyne Mahan PA-C> Date Jasmyne Mahan PA-C
[2019-07-18 09:33] VITALS: BP 112/58; PULSE 81; RESP 81; TEMP 36.8; O2SAT 100; BMI 23.6
[2019-07-18] MEDS: Lactated Ringers 1,000 ML 100 ML IV ×2 (09:53→12:47)
--- NOTE | 2019-07-18 11:11 | HP.PCM_ITS ---
Problem List (1) Left groin hernia Status: Acute History and Physical Date of Admission: 07/18/19 Problem List (1) Left groin hernia Status: Acute History and Physical Date of Admission: 07/18/19 [facility] [address] [place] [address] OFFICE VISIT Date of Service: 07/16/19 MR#:[id number] Name: JAVIER BOND [facility] #:[id number] : 1940 Provider:Jasmyne Mahan PA-C Age/Sex: 78/M Location:[facility] Status:Signed Intake Vital Signs 07/16/19 Blood Pressure 132/59 H 07/16/19 Blood Pressure Location Rt brachial 07/16/19 Blood Pressure Position Sitting 07/16/19 Respiratory Rate 20 H 07/16/19 Pulse Rate 81 07/16/19 Pulse Ox 99 Intake Visit Reasons: update h&p open [facility] 07-18 Chief Complaint: update H&P for [facility] Process Development Technician Required: No Is patient in pain?: No Allergies Iodinated Contrast Media [CONTRASTS] Allergy (Verified 07/16/19 13:19) Hives azelaic acid [From Finacea] Adverse Reaction (Verified 07/16/19 13:19) Rash cephalexin [From Keflex] Adverse Reaction (Verified 07/16/19 13:19) Rash ciprofloxacin [From Cipro] Adverse Reaction (Verified 07/16/19 13:19) Nausea doxazosin [From Cardura] Adverse Reaction (Verified 07/16/19 13:19) Nausea ketoconazole Adverse Reaction (Verified 07/16/19 13:19) Diarrhea levofloxacin Adverse Reaction (Verified 07/16/19 13:19) Rash meloxicam [From Mobic] Adverse Reaction (Verified 07/16/19 13:19) Nausea misoprostol [From Cytotec] Adverse Reaction (Verified 07/16/19 13:19) Nausea nabumetone [From Relafen] Adverse Reaction (Verified 07/16/19 13:19) Nausea NSAIDS (Non-Steroidal Anti-Inflamma Adverse Reaction (Verified 07/16/19 13:19) Nausea sulfamethoxazole [From Bactrim] Adverse Reaction (Verified 07/16/19 13:19) Nausea terbinafine Adverse Reaction (Verified 07/16/19 13:19) Nausea trimethoprim [From Bactrim] Adverse Reaction (Verified 07/16/19 13:19) Nausea valdecoxib [From Bextra] Adverse Reaction (Verified 07/16/19 13:19) Other Medications Acetaminophen [Tylenol] 500 mg PO PRN PRN 04/03/17 [History Confirmed 07/16/19] Butalbital/Aspirin/Caffeine [Wwlrrcpmlj-TAC-Bbhdyxww Cap] 1 cap PO DAILY PRN PRN 04/03/17 [History Confirmed 07/16/19] Finasteride [Proscar] 5 mg PO DAILY 04/03/17 [History Confirmed 07/16/19] Hydrochlorothiazide 12.5 mg PO DAILY 04/03/17 [History Confirmed 07/16/19] Hydrocortisone 2.5% Crm 1 applic TOPICAL PRN PRN 04/03/17 [History Confirmed 07/16/19] Meclizine HCl [Antivert] 25 mg PO TID PRN PRN #14 tab 04/03/17 [Rx Confirmed 07/16/19] Multivitamin 1 tab PO DAILY 04/03/17 [History Confirmed 07/16/19] Quinapril HCl [Accupril] 5 mg PO DAILY 04/03/17 [History Confirmed 07/16/19] Tamsulosin HCl [Flomax] 0.4 mg PO DAILY 04/03/17 [History Confirmed 07/16/19] doxycycline hyclate 20 mg tablet 100 mg PO BID tab 03/13/19 [History Confirmed 07/16/19] sildenafil 50 mg tablet 20 mg PO PRN PRN tab 03/13/19 [History Confirmed 07/16/19] Methocarbamol [Robaxin] 500 mg PO BID 06/20/19 [History Confirmed 07/16/19] Lorazepam [Ativan] 0.5 mg PO DAILY PRN PRN 07/16/19 [History Confirmed 07/16/19] metronidazole 0.75 % topical cream 1 applic TOPICAL BID 07/16/19 [History Confirmed 07/16/19] omeprazole 20 mg capsule,delayed release 20 mg PO DAILY 07/16/19 [History Confirmed 07/16/19] [facility] Medical History Groin pain (Acute) Inguinal hernia bilateral, non-recurrent (Acute) Abdominal pain (Acute) Arthritis (Acute) BPH (benign prostatic hyperplasia) (Acute) History of back problems (Acute) History of hiatal hernia (Acute) History of kidney stones (Acute) Right inguinal hernia (Acute) Hypertension (Chronic) Surgical History (Updated 07/16/19 @ 13:18 by Lelia Wolfe) History of bilateral cataract extraction (Acute) History of colonoscopy (Acute ~02/2019) History of hemorrhoidectomy (Acute) History of laparoscopic cholecystectomy (Acute) History of right inguinal hernia repair (Acute) Hx of repair of left rotator cuff (Acute) Hx of repair of right rotator cuff (Acute) history exacorporeal shock wave lithrotripsy (Acute) history lap hiatal hernia repair (Acute) history repair left thumb (Acute) history ureteral stent insertion (Acute) Family History Father Colon cancer Mother Cancer lung Hypertension Brother Cancer Social History (Updated 07/17/19 @ 10:57 by Jasmyne Mahan PA-C) Smoking Status: Former smoker alcohol intake: current alcohol intake frequency: a few times a month substance use type: does not use HPI Surgical H&P: Yes HPI: JAVIER BOND, is a 78 M who presents to the office today for an update history and physical for an upcoming surgical procedure. Patient notes he was in the ED with cardiac palpitations on 06/20/2019. EKG obtained showed a sinus rhythm with a ventricular rate of 75 bpm with no acute ST segment changes. Patient also had a follow-up with his PCP who cleared him for surgery. Patient notes occasional palpitations. Patient also notes a chronic history of constipation for which he takes Miralax and a stool softener daily for . A colonoscopy was completed earlier this year and was completely unremarkable. Patient had a right inguinal hernia repair in March which he had developed sharp, burning discomfort in the area of the repair. Patient was tried on Neurontin which he did not like the effects and discontinued the medication. A CT scan of the pelvis was obtained and demonstrated post-surgical changes. Dr. Alvarado tried a steroid injection in the right inguinal area which helped for 1 week and then similar pain/discomfort returned. It was recommended to the patient to follow-up with his pain specialist for possible further injections in this region. Patient has declined at this point. He is trying topical liniment spearmint ointment over the area which had decreased the discomfort. Patient also has self diagnosed this to possibly be muscle related. Patient also was evaluated by ENT due to feeling as though his glands were swollen. Patient had a Barium swallow which was unremarkable. Patient is also noting increased discomfort in the left groin. ROS General General: Yes weight change and fatigue; no appetite, colon cancer, breast cancer or weakness HEENT HEENT: No difficulty swallowing, eye injury, eye surgery, swollen glands or hoarseness Endo Endocrine: No thyroid disease, diabetes mellitus, thyroid cancer, Hair loss, heat intolerance or cold intolerance Skin Skin: No rash or changing moles Breast Breast: No left breast lump, right breast lump, nipple discharge, breast pain, abnormal mammogram, abnormal US or breast enlargement Musc Musculoskeletal: Yes back problems and arthritis; no rheumatoid arthritis, gout or joint pain Cardio Cardiovascular: Yes high blood pressure; no murmur, pacemaker, heart disease, atrial fibrillation, heart attack, heart stent, palpitations, shortness of breat with exertion or chest pain Psych Psychiatric: No depression, anxiety or hearing voices Resp Respiratory: No shortness of breath, No sleep apnea, No cough, No COPD, No asthma, No emphysema, No wheezing Gastro Gastrointestinal: Yes abdominal pain, Yes nausea or vomiting, Yes diarrhea, Yes constipation, No blood in stool, No acid reflux, Yes hemorrhoids, No ulcers, No gallbladder problem, No black,tarry stools John Hematologic: No blood thinners, No blood disorders, No bleeding, No anemia, No b lood clots Neuro Neurologic: No weakness Exam Const General: cooperative, healthy appearing, comfortable, no acute distress [facility] Head: normal to inspection Eyes General: appearance normal, both eyes and all related structures Neck Neck: normal visual inspection Neck mass: No Chest Breast Palpation: No nipple discharge Resp Effort & Inspection: normal respiratory effort Auscultation: clear to auscultation bilaterally Cardio Rate: regular rate Rhythm: regular rhythm Heart Sounds: no murmurs GI Inspection: normal to inspection Palpation: soft Auscultation: normal bowel sounds Skin General: no rashes or lesions noted Neuro General: no focal motor deficits, CN's II-XI intact bilaterally Extrem General: normal to inspection Psych Appearance: grossly normal Affect: normal affect Assessment & Plan Problems 1. Left inguinal hernia K40.[address] Alvarado will plan to perform an open left inguinal hernia repair with mesh under [facility] local. Procedure details, risks and benefits have been reviewed. Patient and his have had the opportunity to ask and have questions answered. Patient verbally understands and agrees with the plan. I have recommended exercises and stretching which he said he is limited due to back pain. He may continue the topical ointment. Coding Level of Care Code No Charge Diagnoses Left inguinal hernia K40.90 Comment Update H&P 07/17/19 1057<Electronically signed by Jasmyne Mahan PA-C> Date Jasmyne Mahan PA-C 07/17/19 1059 <Electronically signed by Jasmyne sinclair PA-C> Date _ Jasmyne Mahan PA-C Cosigner Signature: Date (if applicable) CC: Jasmyne Mahan PA-C; Lisandro Alvarado III, MD ~ Signed Since the patient was seen in the office without instructions he electively decided to shave bilateral groin areas. He has multiple tiny pustules from superficial folliculitis in the right groin. The incision otherwise appears to be solid and intact. He massages and palpates the entire area describing a soreness. He states that the previously performed Marcaine/Kenalog nerve block assisted but that he has recurrent soreness in the groin which he feels is secondary to the way he walks with a turned out foot. I described to him that the left groin appears to be relatively clear of problems. We could use a iodine impregnated drape to occlude off the right groin. The patient is interested in not canceling today but proceeding on with the left groin surgery. He is aware of the slightly increased risk of related infection. We will proceed as noted. Shashank Alvarado M.D., F.A.C.S.
[2019-07-18] MEDS: Bupivacaine Mpf 0.5% 30 ML VIAL (12:20)
--- NOTE | 2019-07-18 12:27 | PCM.OPRPT ---
Problem List (1) Left groin hernia Status: Acute Report of Operation Date of Procedure: 07/18/19 Pre-Operative Diagnosis: Left inguinal hernia Post-Operative Diagnosis: Small direct left inguinal hernia Surgery/Procedure Performed:: Dary left inguinal herniorrhaphy Description of Surgical Findings:: Timeout and informed consent was obtained. 78-year-old gent was taken out from placement table underwent monitored anesthesia care. Clindamycin 9 given intravenously preoperatively. The left groin was sterilely prepped draped. Ioban was used as well. 1% lidocaine mixed 50-50 with 0.5% Marcaine was used as local anesthetic a total of 20 cc was used. Local was instilled. A transverse incision in the left groin. Sharp dissection carried down through the substance tissue. The external oblique was identified incised along with the fascia. The inguinal nerve identified and carefully protected with the cord structures. Circumferential control was obtained. There is evidence of diffuse weakness of the direct space. Carefully inspected for an indirect hernia and could not identify one. I then approximated the transversalis fascia with several simple sutures of 3-0 Ethibond. I placed a Bard appreciate keyhole mesh around the internal ring and secured it with Ethibond taking care to preserve the ileal nerve with the cord structures. The tails were slightly shortened and tucked beneath the external oblique laterally. The mesh was secured to the pubic tubercle shelving edge of Poupart and the aponeurosis of the internal and external oblique with interrupted 3-0 Ethibond. Good coverage and securement was achieved. The subdermal tissues were approximated with interrupted 3-0 Vicryl subdermal stitches. Skin edges approximated running septic or 4 Monocryl. Steri-Strips Telfa and OpSite dressings applied. Sponge and instrument and needle counts were reported to surgically correct. Blood loss was minimal. The patient tolerated procedure well was taken to the recovery room in satisfactory condition without apparent complication. Specimens none. Drains none. Blood loss minimal. Shashank Alvarado M.D., F.A.C.S. Type of Anesthesia:: Local MAC Anesthesiologist: López Morales
[2019-07-18 12:33] VITALS: BP 112/58; BP 129/71; PULSE 64; RESP 16; TEMP 36.4; O2SAT 99
[2019-07-18 12:40] VITALS: BP 112/58; BP 123/90; PULSE 74; RESP 16; O2SAT 99
[2019-07-18 12:45] VITALS: BP 112/58; BP 124/66; PULSE 63; RESP 16; O2SAT 100
[2019-07-18 12:48] VITALS: BP 112/58; BP 127/80; PULSE 68; RESP 16; TEMP 36.5; O2SAT 100
--- NOTE | 2019-07-18 13:22 | DCINST_ITS ---
Discharge Diet: Light diet - advance as tolerated - if you have questions about your diet instructions, please talk to you doctor. Discharge Activity: May Not Drive - for 3-5days or while taking narcotic pain medicine. May shower in (days): 1 Lifting Restrictions: 10 pounds Call your doctor if your incision/area has: Continuous Slow Oozing, Sudden Increased Bleeding, Increased Pain/ Swelling, Increased Redness, Foul Smelling Discharge Call your doctor if you observe: Fever of 101 or Higher Suture Line Care: Avoid Pulling/Pushing, Avoid Pinching/Bending Additional Dressing/Incision Instructions:: Change or remove dressing in 4 days. Leave steri-strips in place for 1 week. Allergies/Adverse Reactions: Allergies Iodinated Contrast Media [CONTRASTS] Allergy (Verified 07/18/19:30) Hives azelaic acid [From Finacea] Adverse Reaction (Verified 07/18/19:30) Rash cephalexin [From Keflex] Adverse Reaction (Verified 07/18/19 09:30) Rash ciprofloxacin [From Cipro] Adverse Reaction (Verified 07/18/19:30) Nausea doxazosin [From Cardura] Adverse Reaction (Verified 07/18/19:30) Nausea ketoconazole Adverse Reaction (Verified 07/18/19:30) Diarrhea levofloxacin Adverse Reaction (Verified 07/18/19:30) Rash meloxicam [From Mobic] Adverse Reaction (Verified 07/18/19 09:30) Nausea misoprostol [From Cytotec] Adverse Reaction (Verified 07/18/19 09:30) Nausea nabumetone [From Relafen] Adverse Reaction (Verified 07/18/19:30) Nausea NSAIDS (Non-Steroidal Anti-Inflamma Adverse Reaction (Verified 07/18/19:30) Nausea sulfamethoxazole [From Bactrim] Adverse Reaction (Verified 07/18/19 09:30) Nausea terbinafine Adverse Reaction (Verified 07/18/19:30) Nausea trimethoprim [From Bactrim] Adverse Reaction (Verified 07/18/19 09:30) Nausea valdecoxib [From Bextra] Adverse Reaction (Verified 07/18/19 09:30) Other Medications to take at Discharge Acetaminophen [Tylenol] 500 mg PO PRN PRN 04/03/17 Butalbital/Aspirin/Caffeine [Pylmxmipwd-SJE-Mcmdbbmn Cap] 1 cap PO DAILY PRN PRN 04/03/17 Finasteride [Proscar] 5 mg PO DAILY 04/03/17 Hydrochlorothiazide 12.5 mg PO DAILY 04/03/17 Hydrocortisone 2.5% Crm 1 applic TOPICAL PRN PRN 04/03/17 Meclizine HCl [Antivert] 25 mg PO TID PRN PRN #14 tab 04/03/17 Multivitamin 1 tab PO DAILY 04/03/17 Quinapril HCl [Accupril] 5 mg PO DAILY 04/03/17 Tamsulosin HCl [Flomax] 0.4 mg PO DAILY 04/03/17 doxycycline hyclate 20 mg tablet 100 mg PO BID tab 03/13/19 sildenafil 50 mg tablet 20 mg PO PRN PRN tab 03/13/19 Methocarbamol [Robaxin] 500 mg PO BID 06/20/19 Lorazepam [Ativan] 0.5 mg PO DAILY PRN PRN 07/16/19 metronidazole 0.75 % topical cream 1 applic TOPICAL BID 07/16/19 omeprazole 20 mg capsule,delayed release 20 mg PO DAILY 07/16/19 Primary Care Physician: Lisandro Alvarado III, MD [Primary Care Provider] - Test Results: Test results from this visit will be discussed in further detail at your follow- up appointment, if applicable. Please Follow Up With: Shashank Alvarado MD - [phone] When: Call to make an appointment to be seen in about 10 days.
[2019-07-18 13:52] VITALS: BP 111/59; BP 112/58; PULSE 85; RESP 16; TEMP 36.4; O2SAT 98
== END 2019-07-18 14:00 | disposition home or self-care (01) ==
LOC: SDC 08:55 → AC 08:59
PROVIDERS: Family Provider Family Medicine; PCP Family Medicine; Referring Provider Surgery; Visit Provider Surgery
PROC: (CPT 49505; principal; 2019-07-18 10:45)
DX: K40.90 Unilateral inguinal hernia, without obstruction or gangrene, not specified as recurrent (principal); I10 Essential (primary) hypertension; K59.00 Constipation, unspecified; L73.9 Follicular disorder, unspecified; N40.0 Benign prostatic hyperplasia without lower urinary tract symptoms; K21.9 Gastro-esophageal reflux disease without esophagitis; Z79.82 Long term (current) use of aspirin; Z79.899 Other long term (current) drug therapy; Z88.8 Allergy status to other drugs, medicaments and biological substances; Z88.6 Allergy status to analgesic agent; Z88.3 Allergy status to other anti-infective agents; Z88.2 Allergy status to sulfonamides; Z88.1 Allergy status to other antibiotic agents; Z87.442 Personal history of urinary calculi; Z87.891 Personal history of nicotine dependence
CPT/HCPCS: 49505; J7120; C1781; J2405

== ENCOUNTER → 2019-08-01 13:11 | Outpatient (CLI) | payer MEDICARE, SELFPAY ==
[2019-07-18 09:33] VITALS: BMI 23.6
--- NOTE | 2019-08-01 13:16 | RAD_ITS ---
STUDY: SWALLOWING STUDY REASON FOR EXAM: Male, 78 years old. Dysphagia. TECHNIQUE: The examination was performed with Speech Pathology in attendance. Under fluoroscopic observation, the patient ingested thin barium, thick barium, barium pudding, and barium coated cracker. FLUOROSCOPY TIME: 2:02 minutes/seconds. 1909 fluoroscopic images were obtained. RADIOLOGIST INVOLVEMENT: Radiologist was present and providing direct supervision. COMPARISON: None. FINDINGS: The following was observed during swallowing of the various mixtures of barium: Thin Barium: Occasional penetration and evacuation. Thick Barium: There was no evidence of aspiration or laryngeal penetration. Barium Pudding: There was no evidence of aspiration or laryngeal penetration. Barium Coated Cracker: There was no evidence of aspiration or laryngeal penetration. RAD/Swallowing Function w/Video IMPRESSION: Occasional penetration and evacuation with ingestion of thin liquids. The swallow study findings were discussed with the patient by the speech pathologist at the conclusion of the examination. Please see speech pathology report for more information and recommendations. Electronically Signed: Qasim Hernandez, at 14:01 EST , Service support ,
--- NOTE | 2019-08-01 15:04 | SP.MBSS_ITS ---
PRIMARY / SECONDARY DIAGNOSIS: Dysphagia REFERRING PHYSICIAN: Dr. Kofi Cabrera CURRENT DIET: Regular Textures/Thin Liquids MENTAL STATUS: WFL RESPIRATORY STATUS: O2 via room air PREVIOUS MODIFIED BARIUM SWALLOW STUDY: N/A; Barium Swallow on 07/03/2019 showed penetration and aspiration in the cervical position ?REASON FOR REFERRAL: difficulty swallowing MEDICAL HISTORY: The patient is a 76/M with past medical history significant for inguinal hernia bilateral, abdominal pain, arthritis, BPH, hx of back problems, hx of hiatal hernia, and hypertension. ? STUDY FINDINGS: Patient participated in a Modified Barium Swallow (MBS) study on 08/01/2019 Dr. Hernandez was the radiologist present for this evaluation. This study was recorded in the lateral view and images were sent to PACs for storage. The following consistencies were presented to this patient for analysis of oropharyngeal swallow function: thin liquid, nectar thick liquid, pudding, and regular textures Christine Doone shortbread cookie. Results of the MBS are as follows: ? ? ? PENETRATION / ASPIRATION SCALE (GIRALDO): 1 = does not enter airway 2 = enters airway/above vocal folds/ejected 3 = enters airway/above vocal folds/not ejected 4 = enters airway/contacts vocal folds/ejected 5 = enters airway/contacts vocal folds/not ejected 6 = enters airway/below vocal folds/ejected 7 = enters airway/below vocal folds/not ejected despite effort 8 = enters airway/below vocal folds/no effort ? PENETRATION / ASPIRATION SCALE (SCORE): 1) Thin liquids via teaspoon = 1 2) Thin liquids via teaspoon = 4 3) Thin liquids via single sip from cup = 1 4) Thin liquids via large single sip from cup = 1 5) Thin liquids via large single sip from cup = 1 6) Thin liquids via sequential sips from cup = 2 7) Roberts = 2 flash penetration 8) Pudding = 1 9) Cookie = 1 10) Thin liquids via sequential sips from straw = 4 ? IMPRESSION: ? ?ORAL PHASE CHARACTERIZED BY: LABIAL SEAL: no labial escape TONGUE CONTROL DURING BOLUS MANIPULATION: posterior escape of less than half of bolus BOLUS PREPARATION / MASTICATION: slow prolonged chewing/mashing with complete recollection BOLUS TRANSPORT / LINGUAL MOTION: slowed tongue motion ORAL RESIDUE: residue collection on oral structures PHARYNGEAL PHASE CHARACTERIZED BY: INITIATION OF PHARYNGEAL SWALLOW: bolus head in pyriforms at first hyoid excursion SOFT PALATE ELEVATION: no bolus between soft palate and pharyngeal wall LARYNGEAL ELEVATION: partial superior movement of thyroid cartilage/partial approximation of arytenoids cartilage to epiglottic petiole ANTERIOR HYOID EXCURSION: partial anterior movement EPIGLOTTIC MOVEMENT: complete epiglottic inversion LARYNGEAL VESTIBULE CLOSURE AT HEIGHT OF SWALLOW: incomplete laryngeal vestibule closure with narrow column of air/contrast in laryngeal vestibule PHARYNGEAL STRIPPING WAVE: pharyngeal stripping wave present / complete PHARYNGOESOPHAGEAL SEGMENT OPENING: partial distension and partial duration; partial obstruction of flow TONGUE BASE RETRACTION: narrow column of contrast between tongue base and posterior pharyngeal wall PHARYNGEAL RESIDUE: collection of residue within or on pharyngeal structures ESOPHAGEAL PHASE CHARACTERIZED BY: ?ESOPHAGEAL BOLUS CLEARANCE IN THE UPRIGHT POSITION: could not view ? DIET TEXTURE RECOMMENDATIONS: Will recommend a mechanical soft textured, thin liquid diet.? ? COMPENSATORY STRATEGIES RECOMMENDED: Will recommend reduced bolus volume, reduced rate of intake, double swallow for every bite and sip to help clear pharyngeal residue, avoid straws, seated upright at 90 degrees during PO intake, and remain upright for 30-60 minutes post meal (GERD precaution). ?? INTERPRETATION OF RESULTS: Patient presents with moderate oropharyngeal dysphagia (R13.12). Oral phase primarily marked by prolonged mastication of Christine Doone shortbread cookie with oral residue present requiring second swallow to clear oral cavity. Pharyngeal phase primarily marked by delayed pharyngeal swallow onset timing resulting in spillage to the valleculae and pyriform sinuses at times prior to hyoid excursion. Reduced closure of the airway during deglutition attributed to reduced laryngeal elevation and anterior hyoid excursion resulting in poor laryngeal vestibule closure / pressure. Patient noted to have penetration on thin liquids to the vocal cords twice, once with teaspoon sip of thin liquids and once with sequential sips via straw. Both times liquids were ejected. Minimal, flash penetration noted with trial of nectar thick liquids. No aspiration found during this assessment on this date/time although patient is at high risk for aspiration. Reduced pharyngoesophageal segment opening noted resulting in pharyngeal retention within the pharyngeal cavity. Incidental finding of a diverticulum-like pouch below the PES. Globus sensation patient reports may possibly be attributed to the pharyngeal residue as well as pocketing of bolus within the diverticulum through trials with varying viscosities. RECOMMENDATIONS: The patient requires intensive skilled speech-language intervention targeting continued diet texture management, training and implementation of recommended compensatory strategies, training and implementation of recommended oropharyngeal strengthening exercises to improve swallow function. Would consider repeat MBS study in 6-12 months to determine presence of aspiration and/or progress of swallow function after skilled ST intervention has been established. ADDITIONAL COMMENTS/RECOMMENDATIONS:? ?? Results and recommendations were discussed with the patient immediately following MBS completion, with the patient verbalizing understanding and agreement with all recommendations and education provided. ? ? IMAGE COUNT: [id number] ? Nubia Daugherty M.A., CCC-RN SURGERY ICU Speech Language Pathologist [facility] [address] [place] [address] [email or web address] [phone]
== END ==
PROVIDERS: Family Provider Family Medicine; PCP Family Medicine; Referring Provider Otolaryngology Otolaryngology/Facial Plastic Surgery; Visit Provider Otolaryngology Otolaryngology/Facial Plastic Surgery
DX: R13.10 Dysphagia, unspecified (principal)
CPT/HCPCS: 74230; 92611

== ENCOUNTER 2019-09-07 14:30 | Outpatient (RCR) | payer MEDICARE, SELFPAY ==
--- NOTE | 2019-07-16 09:50 | HP.SP.AD_ITS ---
History - History Date of Eval: 07/13/19 Medical Diagnosis (from RX): Dysphagia Date of Onset of Diagnosis: May 2019 Previous speech therapy: No Other Relevant Medical History/Diagnoses/Surgery: Back issues, hernia repairs. Smoking Status: Former smoker Hx Smoking: No Hx Tobacco Use: No - Pain Is pain an issue with your current prescribed condition?: No - Personal Education History: Completed some graduate school. Occupation: Retired. Right Hearing Abillity: Normal Left Hearing Abillity: Normal Visual Assistive Devices: Glasses Patients Living Arrangements: With Significant Other Patient Allergies - Allergies Allergies Iodinated Contrast Media [CONTRASTS] Allergy (Verified 06/20/19 16:39) Hives azelaic acid [From Finacea] Adverse Reaction (Verified 06/20/19 16:39) Rash cephalexin [From Keflex] Adverse Reaction (Verified 06/20/19 16:39) Rash ciprofloxacin [From Cipro] Adverse Reaction (Verified 06/20/19 16:39) Nausea doxazosin [From Cardura] Adverse Reaction (Verified 06/20/19 16:39) Nausea ketoconazole Adverse Reaction (Verified 06/20/19 16:39) Diarrhea levofloxacin Adverse Reaction (Verified 06/20/19 16:39) Rash meloxicam [From Mobic] Adverse Reaction (Verified 06/20/19 16:39) Nausea misoprostol [From Cytotec] Adverse Reaction (Verified 06/20/19 16:39) Nausea nabumetone [From Relafen] Adverse Reaction (Verified 06/20/19 16:39) Nausea NSAIDS (Non-Steroidal Anti-Inflamma Adverse Reaction (Verified 06/20/19 16:39) Nausea sulfamethoxazole [From Bactrim] Adverse Reaction (Verified 06/20/19 16:39) Nausea terbinafine Adverse Reaction (Verified 06/20/19 16:39) Nausea trimethoprim [From Bactrim] Adverse Reaction (Verified 06/20/19 16:39) Nausea valdecoxib [From Bextra] Adverse Reaction (Verified 06/20/19 16:39) Other Objective Oral Motor - Oral Status Dentition: Upper Dentures - Labial Impairment: WNL Closure: WNL Pucker: WNL Retraction: WNL Alternating Pucker/Retraction: WNL Involuntary Movement noted: No - Lingual Impairment: WNL Protrusion: WNL Retraction: WNL Lateralization: WNL Involuntary Movement: No - Jaw Impairment: WNL Opening: WNL Closing: WNL - Respiratory Status Respiratory Status: Room Air Subjective Dysphagia - Symptoms Reported Symptoms/Problems with: Difficulty Swallowing Pills - Current Diet Solids Current Diet: Regular - Current Diet Liquids Current Liquids: Thin Objective Dysphagia - Administered by Administered by: Self - Thin Liquids Administred via: Cup Symptoms: Throat Clearing, Immediate Oral Holding: No Gagging: No Comments: Consistent throat clear. - Results Swallowing Within Normal Limits: No Swallowing Diagnosis: Dysphagia Unspecified Dysphagia Assessment - Impact Impact on Safety & Functioning: Risk for Aspiration - Recommendations Modified Barium Swallow/Cookie Swallow Recommended: Yes Swallowing Treatment: Yes - Diet Texture Recommendations Solids Other: Regular Liquids: Thin - Safety Saftey Precautions/Swallowing Recommendations (Check all that Apply): Small Sips & Bites when Eating, Sips by Straw Only Plan - Plan Plan: Recommend modified barium swallow study with therapy recommended pending results of it. - Recommendations MBS: Yes Treatment Warranted: Yes - Frequency Frequency: 1x/Week Duration: 6 Weeks Visits in this POC: 6 - Prognosis Prognosis: Good - Goals that are Established: Determination:: Goals will be added/modified as deemed necessary and appropriate. Therapy will be discontinued when results of re-evaluation ind icate therapy is no longer needed or lack of progress has been documented. - Goal #1-5 Goal #1: The Patient will tolerate the least restrictive means of nutrition to facilitate adequate hydration/nutrition with optimum safety and efficiency of swallowing function during P.O. intake without overt signs and symptoms of aspiration. Goal #2: The Patient will demonstrate and utilize recommended velopharyngeal and oropharyngeal strengthening exercises to facilitate improved velopharyngeal and oropharyngeal strength and coordination with minimal cueing and prompting provide by the clinician, across 3 to 3 sessions. Goal #3: Completion of MBSS. Education - Patient has Indicated that the Following Identified Educational Needs: None The Patient has indicated that they have no educational or learning abilities that may effect their care.: Yes - Patient Instruction Patient Education: Diagnosis Person Taught: Patient, Family Teaching Method: Discussion Response to teaching: Verbalize understanding
--- NOTE | 2019-09-10 10:57 | HP.SP.DC ---
ST Discharge Summary - Discharged: Discharge: Eric Hidalgo is discharged from speech therapy at [facility] as of 09/07/19 as his goals have been met. He was evaluated on 07/13/19. He completed a Modified barium swallow study on 08/01/19 which recommended a mechanical soft diet with thin liquids. During the four therapy sessions, his mastication was re-evaluated and he was placed on a regular diet as the patient was able to self monitor foods that may be too hard for him. He was able to independently complete swallow exercises. At the last session, Eric reported no difficulty with swallowing. A copy of this discharge summary will be sent to her referring physician.
== END 2019-09-07 19:00 | disposition home or self-care (01) ==
LOC: SP 14:30
PROVIDERS: Family Provider Family Medicine; PCP Family Medicine; Referring Provider Otolaryngology Otolaryngology/Facial Plastic Surgery; Visit Provider Otolaryngology Otolaryngology/Facial Plastic Surgery
DX: R93.3 Abnormal findings on diagnostic imaging of other parts of digestive tract (principal)
CPT/HCPCS: 92526; 92610

== ENCOUNTER → 2020-02-01 09:22 | Outpatient (CLI) | payer MEDICARE, SELFPAY ==
[2019-09-12 09:12] VITALS: BMI 23.6
--- NOTE | 2020-02-01 09:35 | RAD_ITS ---
STUDY: GASTROGRAFIN ENEMA. REASON FOR EXAM: Male, 79 years old. CONSTIPATION, PAIN FLUOROSCOPY TIME (if supplied): ( 61 seconds ) minutes/seconds TECHNIQUE: Gastrografin was introduced retrograde through the rectum. The entire colon was opacified. COMPARISON: None. FINDINGS: On the quality process lead view, there is evidence of fecal material in the colon. Dextroscoliosis with multilevel disc space narrowing. The entire colon was opacified. There is no evidence of obstruction to antegrade or retrograde flow of the Gastrografin. No mass lesion is seen. Scattered residual fecal material is seen in the colon. RAD/Barium Enema No Air Cont IMPRESSION: Unremarkable Gastrografin enema. Electronically Signed: Qasim Hernandez, at 10:46 EDT , Service support ,
== END ==
PROVIDERS: PCP Family Medicine; Referring Provider Nurse Practitioner Adult Health; Visit Provider Nurse Practitioner Adult Health
DX: K56.2 Volvulus (principal); R19.4 Change in bowel habit; R10.9 Unspecified abdominal pain
CPT/HCPCS: 74270

== ENCOUNTER 2021-01-28 16:10 | Emergency (ER) | payer MEDICARE, SELFPAY ==
[2019-09-12 09:12] VITALS: BMI 23.6
[2021-01-28 16:19] VITALS: BP 137/75; PULSE 89; RESP 16; TEMP 37.1; O2SAT 100; BMI 22.0
--- NOTE | 2021-01-28 16:29 | EKG12_ITS ---
Test Reason : HYPOTENSION Blood Pressure : / mmHG Vent. Rate : 083 BPM Atrial Rate : 083 BPM P-R Int : 152 ms QRS Dur : 082 ms QT Int : 370 ms P-R-T Axes : 067 023 067 degrees QTc Int : 434 ms Normal sinus rhythm Normal ECG Confirmed by VIDYA FAIRBANKS, EVE ([id number]), medical editor PATRICE SALDANA ([id number]) on 02/02/2021 12:22:19 PM Referred By: BB Confirmed By:EVE DASILVA MD
--- NOTE | 2021-01-28 16:31 | EDS_ITS ---
HPI History of Present Illness Chief Complaint: Hypotension Informant: patient and spouse/S.O. Onset/Context/Timing Onset: Today Context: - (at dr's office) Quality: low BP - 80/50 Current Severity: Gone Maximum Severity: Severe Worsened by: unk Relieved by: unk Associated Symptoms Associated Symptoms: felt some chills/cold earlier; no fevers. otherwise, now fine/at baseline, Narrative Narrative: Patient recently had back vertebral fusion and has been bedbound for the last month or 2 as a result, postoperatively he developed a urinary tract infection and had sepsis due to this along with presence of kidney stones. He was dispositioned to [facility] and has been home for 7 or 9 days now, he had an outpatient preoperative appointment today for treating the kidney stone surgically that was scheduled for Tuesday which is 5 days away from now. At the preoperative appointment this afternoon his blood pressure was reading low in the 80s, he was feeling a little cold, and his Tabor catheter was not putting out any urine despite the patient drinking 2 or 3 bottles of water in the office so he was sent to the emergency department. The states that she usually empties the Tabor catheter twice a day, she already emptied it once today and his urine output has been normal for the last several days including today prior to the office visit. He has had no fevers or different colored urine, no hematuria, no abdominal pain, nausea, vomiting, back pain other than his post- operative discomfort, and no other symptoms. He has not felt lightheaded or near syncopal. He has some tremoring in his right foot that the surgeon told him was a result of his surgery and the nerves growing back and is a good sign, he has been numb in his right leg since the surgery. He is unable to walk on it due to weakness. [facility] Medical History (Updated 01/28/21 @ 18:[address] Hector Baxter MD) Abdominal pain Arthritis BPH (benign prostatic hyperplasia) Groin pain History of back problems History of hiatal hernia History of kidney stones Hypertension Inguinal hernia bilateral, non-recurrent Left inguinal hernia Right inguinal hernia Home Medications acetaminophen 500 mg PO PRN PRN 04/03/17 [History Last Taken Unknown] finasteride 5 mg PO DAILY 04/03/17 [History Last Taken Unknown] hydrochlorothiazide 12.5 mg PO DAILY 07/09/17 [History Last Taken 07/18/19 05:30 12.5 MG] meclizine 25 mg PO TID PRN PRN #14 tab 04/03/17 [Rx Last Taken Unknown] tamsulosin 0.4 mg PO DAILY 04/03/17 [History Last Taken Unknown] doxycycline hyclate 20 mg tablet 100 mg PO QMWF tab 03/13/19 [History Last Taken Unknown] sildenafil 50 mg tablet 20 mg PO PRN PRN tab 03/13/19 [History Last Taken Unk nown] methocarbamol 500 mg PO TID 06/20/19 [History Last Taken Unknown] metronidazole 0.75 % topical cream 1 applic TOPICAL BID 07/16/19 [History Last Taken Unknown] omeprazole 20 mg capsule,delayed release 20 mg PO DAILY 07/16/19 [History Last Taken Unknown] Lactobacillus acidophilus 10 mg PO DAILY 01/28/21 [History Last Taken Unknown] amoxicillin 500 mg PO DAILY 01/28/21 [History Last Taken Unknown] aspirin [Aspirin Low Dose] 81 mg PO DAILY 01/28/21 [History Last Taken Unknown] calcium carbonate-vitamin D3 1 tab PO BID 01/28/21 [History Last Taken Unknown] lisinopril [Zestril] 5 mg PO DAILY 01/28/21 [History Last Taken Unknown] melatonin 3 mg PO QHS 01/28/21 [History Last Taken Unknown] oxycodone 5 mg PO DAILY PRN 01/28/21 [History Last Taken Unknown] trazodone 50 mg PO QHS 01/28/21 [History Last Taken Unknown] Allergy/AdvReac Type Severity Reaction Status Date / Time Iodinated Contrast Media Allergy Hives Verified 01/28/21 16:30 [CONTRASTS] azelaic acid [From Finacea] AdvReac Rash Verified 01/28/21 16:30 cephalexin [From Keflex] AdvReac Rash Verified 01/28/21 16:30 ciprofloxacin [From Cipro] AdvReac Nausea Verified 01/28/21 16:30 doxazosin [From Cardura] AdvReac Nausea Verified 01/28/21 16:30 gabapentin AdvReac Other Verified 01/28/21 16:30 ketoconazole AdvReac Diarrhea Verified 01/28/21 16:30 levofloxacin AdvReac Rash Verified 01/28/21 16:30 meloxicam [From Mobic] AdvReac Nausea Verified 01/28/21 16:30 misoprostol [From Cytotec] AdvReac Nausea Verified 01/28/21 16:30 nabumetone [From Relafen] AdvReac Nausea Verified 01/28/21 16:30 NSAIDS (Non-Steroidal AdvReac Nausea Verified 01/28/21 16:30 Anti-Inflamma sulfamethoxazole AdvReac Nausea Verified 01/28/21 16:30 [From Bactrim] terbinafine AdvReac Nausea Verified 01/28/21 16:30 trimethoprim [From Bactrim] AdvReac Nausea Verified 01/28/21 16:30 valdecoxib [From Bextra] AdvReac Other Verified 01/28/21 16:30 Family History Father Colon cancer Mother Cancer lung Hypertension Brother Cancer Surgical History history exacorporeal shock wave lithrotripsy history lap hiatal hernia repair History of bilateral cataract extraction History of colonoscopy (~02/2019) History of hemorrhoidectomy History of laparoscopic cholecystectomy History of left inguinal hernia repair (~07/18/19) History of right inguinal hernia repair history repair left thumb history ureteral stent insertion Hx of repair of left rotator cuff Hx of repair of right rotator cuff Social History (Updated 01/28/21 @ 16:[address] Hector Baxter MD) household members: spouse Smoking Status: Never smoker alcohol intake: current alcohol intake frequency: a few times a month substance use type: does not use ROS ROS ED Constitutional Constitutional ED: Reports as per HPI and chills; Denies fever(s) Eyes Eyes: Denies change in vision or diplopia ENT ENT ED: Denies rhinorrhea or sore throat Cardiovascular Cardiovascular: Denies chest pain or palpitations Respiratory/Chest Respiratory/Chest: Denies cough or dyspnea Gastrointestinal Gastrointestinal: Denies abdominal pain, diarrhea, nausea or vomiting Genitourinary Genitourinary ED: Denies dysuria or hematuria Musculoskeletal Musculoskeletal: Denies back pain or neck pain Integumentary Denies abscess or rash Neurologic Neurologic: Reports paresthesias, tremor(s) and weakness; Denies dizziness or headache(s) Psychiatric Psychiatric: Denies anxiety or suicidal thoughts EXAM Physical Exam Const Vital Signs: 01/28/21 16:19 01/28/21 16:51 01/28/21 16:52 Temperature 98.7 F Temperature Source Oral Pulse Rate 89 Respiratory Rate 16 Respiratory Effort Normal Non-Labored Respiratory Pattern Normal Blood Pressure 137/75 H Blood Pressure Mean 95 Pulse Ox 100 Oxygen Delivery Method Room Air Room Air 01/28/21 16:56 01/28/21 16:57 01/28/21 17:33 Temperature 98.7 F 98.7 F 98.1 F Temperature Source Oral Oral Oral Pulse Rate 80 81 Respiratory Rate 13 16 Respiratory Effort Respiratory Pattern Blood Pressure 135/75 H 131/75 H Blood Pressure Mean 95 93 Pulse Ox 98 97 Oxygen Delivery Method Room Air Room Air 01/28/21 18:26 Temperature 98.2 F Temperature Source Oral Pulse Rate 85 Respiratory Rate 16 Respiratory Effort Respiratory Pattern Blood Pressure 130/77 H Blood Pressure Mean 94 Pulse Ox 98 Oxygen Delivery Method Room Air Positive well nourished and well developed General Appearance ED: well developed and NAD HEENT Reports moist mucous membranes normocephalic and atraumatic Eyes PERRL and EOMs intact bilaterally Neck full ROM and supple Resp normal respiratory effort and clear to auscultation bilaterally Cardio regular rate, regular rhythm and no murmurs GI non-tender and non-distended Auscultation: normoactive bowel sounds Palpation: soft Back/Spine no CVA tenderness General Back: other FROM Extremity normal to inspection General Extremety ED: Negative for edema, pulses abnormal or tenderness General Extremity: Negative for edema or pulses abnormal Neuro oriented x3, CN's II-XII intact bilaterally and moves all extremities Neuro Narrative: Weak right leg. No clonus. Symmetric reflexes. Sensorium / Orientation: awake and alert Sensory Exam: extremities light-touch: decreased (RLE) Motor Exam: strength 5/5 throughout Skin no rashes or lesions noted and no wounds MDM MDM MDM Narrative Medical decision making narrative: Patient feels well, and his vital signs of been normal since he has been here. His lactate is within normal limits he has no leukocytosis. His urine does show signs of infection with some white blood cells more than normal, this could be colonization or infection, sent for culture and assume that it could be acutely infected but I do not think he is septic. I pancultured him, gave him initial dose of antibiotics, but given the fact that he clinically is well and his labs are otherwise normal I think he can be discharged back home on antibiotics. Given his extensive list of allergies including many antibiotics, I feel he has very few options for treatment so I discussed with patient and , he currently is on amoxicillin and doxycycline. Based on the urinalysis and his condition, it is unclear if he actually has an acute urinary infection at this time before the culture comes back, or if he is just colonized. The urine is transparent does not feel cloudy or have a lot of sediment, and he does not have any symptoms clinically of an infection like he did before. His transient hypotension could very well have been relative dehydration, he does have mild prerenal azotemia, and now his urine output is normal since he has drank several bottles of water and got IV fluids here. I discussed all this with the urology fellow, he agreed with sending the patient home to continue his current antibiotics and drink plenty fluids. Family and patient are comfortable with this plan. Lab Data Attestation: I reviewed the patient's lab results. Labs: Laboratory Results - last 24 hr 01/28/21 01/28/21 01/28/21 16:40 16:45 16:45 WBC 5.3 RBC 4.18 L Hgb 12.9 L Hct 40.7 MCV 97.4 H MCH 30.9 MCHC 31.7 L RDW Std Deviation 47.9 H RDW Coeff of Ezequiel 13.4 Plt Count 240 MPV 8.8 Immature Gran % (Auto) 0.200 Neut % (Auto) 48.9 Lymph % (Auto) 40.2 Bowie % (Auto) 8.6 Eos % (Auto) 1.5 Baso % (Auto) 0.6 Absolute Neuts (auto) 2.6 Absolute Lymphs (auto) 2.11 Nucleated RBC % 0 PT 12.9 INR 1.0 APTT 27.8 Sodium Potassium Chloride Carbon Dioxide Anion Gap BUN Creatinine Estim Creat Clear Calc Est GFR (MDRD) Af Amer Est GFR (MDRD) Non-Af BUN/Creatinine Ratio Glucose Lactic Acid Calcium Total Bilirubin AST ALT Alkaline Phosphatase Troponin I Total Protein Albumin Globulin Albumin/Globulin Ratio Urine Color Yellow Urine Clarity Clear Urine pH 7.0 Ur Specific [place] 1.010 Urine Protein 15 H Urine Glucose (UA) Normal Urine Ketones Negative Urine Occult Blood 50 H Urine Nitrite Negative Urine Bilirubin Negative Urine Urobilinogen Normal Ur Leukocyte Esterase 500 H Urine RBC 0 SEEN Urine WBC 10-25 SEEN Ur Squamous Epith Cells 0 SEEN Urine Bacteria 0 SEEN Urine Mucus 0 SEEN Urine Yeast 1+ 01/28/21 01/28/21 16:45 16:45 WBC RBC Hgb Hct MCV MCH MCHC RDW Std Deviation RDW Coeff of Ezequiel Plt Count MPV Immature Gran % (Auto) Neut % (Auto) Lymph % (Auto) Bowie % (Auto) Eos % (Auto) Baso % (Auto) Absolute Neuts (auto) Absolute Lymphs (auto) Nucleated RBC % PT INR APTT Sodium 133 L Potassium 4.2 Chloride 98 Carbon Dioxide 29.0 Anion Gap 6 BUN 20 H Creatinine 0.75 Estim Creat Clear Calc 58.21 Est GFR (MDRD) Af Amer 129 Est GFR (MDRD) Non-Af 106 BUN/Creatinine Ratio 26.5 H Glucose 106 Lactic Acid 1.5 Calcium 9.2 Total Bilirubin 0.50 AST 15 ALT 23 Alkaline Phosphatase 86 Troponin I < 0.015 Total Protein 7.0 Albumin 3.5 Globulin 3.5 Albumin/Globulin Ratio 1.0 Urine Color Urine Clarity Urine pH Ur Specific [place] Urine Protein Urine Glucose (UA) Urine Ketones Urine Occult Blood Urine Nitrite Urine Bilirubin Urine Urobilinogen Ur Leukocyte Esterase Urine RBC Urine WBC Ur Squamous Epith Cells Urine Bacteria Urine Mucus Urine Yeast Radiography Chest X-Ray - ED: 1 View, Read by ED Physician, No Acute Disease and Chronic Changes Diagnostic Testing: Radiology Impression Chest X-Ray 01/28/21 17:00 IMPRESSION: Probable COPD without acute cardiopulmonary disease. Electronically Signed: Stepan Palacio DO at 17:20 EDT Tel [phone], Service support , EKG Initial EKG: Attestation: I personally reviewed and interpreted this EKG as follows: Interpretation: Sinus Rhythm (83) and No Acute Injury Pattern (normal EKG) Discharge Plan Triage Chief Complaint: Hypotension ED Provider: Hector Baxter Dx/Rx/DC Orders Clinical Impression: Transient hypotension, Mild dehydration Instructions: ED Dehydration (Adult), ED Low Blood Pressure, All Causes Prescriptions: No Action metronidazole 0.75 % cream 1 applic TOPICAL BID RF: 0 omeprazole 20 mg capsule,delayed release(DR/EC) 20 mg PO DAILY RF: 0 acetaminophen 500 MG tablet 500 mg PO PRN PRN (Reason: Pain) RF: 0 tamsulosin 0.4 MG capsule 0.4 mg PO DAILY RF: 0 hydrochlorothiazide 12.5 MG capsule 12.5 mg PO DAILY RF: 0 finasteride 5 MG tablet 5 mg PO DAILY RF: 0 meclizine 25 MG tablet 25 mg PO TID PRN PRN (Reason: Dizziness) Qty: 14 RF: 0 doxycycline hyclate 20 mg tablet 100 mg PO QMWF RF: 0 sildenafil 50 mg tablet 20 mg PO PRN PRN (Reason: Not Specified) RF: 0 methocarbamol 500 MG tablet 500 mg PO TID RF: 0 amoxicillin 500 mg capsule 500 mg PO DAILY RF: 0 trazodone 50 mg tablet 50 mg PO QHS RF: 0 melatonin 3 mg Tablet 3 mg PO QHS RF: 0 aspirin [Aspirin Low Dose] 81 mg Tablet,Delayed Release (Dr/Ec) 81 mg PO DAILY RF: 0 lisinopril [Zestril] 5 mg tablet 5 mg PO DAILY RF: 0 Lactobacillus acidophilus Capsule 10 mg PO DAILY RF: 0 oxycodone 5 mg tablet 5 mg PO DAILY PRN (Reason: Pain) RF: 0 calcium carbonate-vitamin D3 600 mg(1,500mg) -500 unit Tablet Extended Release 24 Hr 1 tab PO BID RF: 0 Primary Care Provider: Lisandro Alvarado III Referrals: Lisandro Alvarado III, MD [Primary Care Provider] - 3-5 Days (And/or your urologist) Disposition Disposition: Home, self care
[2021-01-28 16:42] LABS: Bacteria 0 SEEN /hpf (None Seen); Mucous, Urine 0 SEEN /hpf (<or=2+); Red Blood Cells-Urine 0 SEEN /hpf (0-5); Squamous Epithelial Cells - UA 0 SEEN /hpf (0-5)
[2021-01-28 16:54] LABS: Color, Urine Yellow (Yellow); Glucose, Dipstick Normal (Normal); Ketone-Dipstick Negative (Negative); Leukocyte Esterase-Dipstick 500 /ul (Negative); Nitrite-Dipstick Negative (Negative); Occult Blood-Urine 50 /ul (Negative); Protein-Dipstick 15 mg/dl (Negative); Urine Bilirubin Dipstick Negative (Negative); Urine Clarity Clear (Clear); Urine Urobilinogen Normal (Normal)
[2021-01-28 16:56] VITALS: TEMP 37.1
[2021-01-28 16:56] LABS: Absolute Lymphocyte Count 2.11 X10^3/uL (0.83-4.51); Absolute Neutrophil Count 2.6 X10^3/uL (2.0-7.7); Basophil# 0.03 X10^3/uL; Basophil% 0.6 % (0-1); Eosinophil# 0.08 X10^3/uL; Eosinophils% 1.5 % (0-5); Hematocrit 40.7 % (40-54); Hemoglobin 12.9 g/dL (13.0-16.5); Lymphocyte # 2.11 X10^3/ul (0.83-4.51); Lymphocyte % 40.2 % (19-41); Mean Corp Hgb Conc 31.7 g/dL (32-36); Mean Corpuscular Hgb 30.9 pg (27.0-32.0); Mean Corpuscular Volume 97.4 fL (80-94); Mean Platelet Vol. 8.8 fl (6.2-12.0); Monocyte# 0.45 X10^3/uL; Monocyte% 8.6 % (0-10); NRBC Flagged by Analyzer 0 % (0-5); Neutrophil # 2.57 X10^3/uL (2.7-7.7); Neutrophil % 48.9 % (47-70); Platelet Count 240 K/mm3 (150-450); RBC Distribution Width CV 13.4 % (11.6-14.6); RBC Distribution Width SD 47.9 fl (35.1-43.9); Red Blood Count 4.18 M/mm3 (4.6-6.2); White Blood Count 5.3 K/mm3 (4.4-11.0)
[2021-01-28 16:57] VITALS: BP 135/75; PULSE 80; RESP 13; TEMP 37.1; O2SAT 98
--- NOTE | 2021-01-28 17:00 | RAD_ITS ---
STUDY: X-RAY CHEST REASON FOR EXAM: Male, 80 years old. Weakness. TECHNIQUE: Single AP portable view of the chest. COMPARISON: None. FINDINGS: There is hyperinflation of the lungs consistent with chronic obstructive lung disease (COPD). There is no focal mass or infiltrate. There is no pneumothorax. There is no demonstrated pleural abnormality. Normal size heart. Normal mediastinum and junior. Normal visualized pulmonary arteries. Normal visualized aortic arch and descending thoracic aorta. The thoracic spine is obscured by the mediastinum. There is degenerative osteoarthritis of the bilateral shoulders. There is no demonstrated abnormality of the visualized soft tissue structures of the upper abdomen. RAD/Chest 1 View (Portable) IMPRESSION: Probable COPD without acute cardiopulmonary disease. Electronically Signed: Stepan Palacio DO at 17:20 EDT Tel [phone], Service support ,
[2021-01-28 17:07] LABS: White Blood Cells 10-25 SEEN /hpf (0-5)
[2021-01-28 17:09] LABS: Yeast-Urine 1+ /hpf (None Seen)
[2021-01-28 17:10] LABS: Partial Thromboplast Time 27.8 Seconds (24.1-36.2); Prothrombin Time (Protime)PT. 12.9 SECONDS (11.7-14.9)
[2021-01-28 17:18] LABS: AST(SGOT) 15 U/L (15-37); Alanine Aminotransfer ALT/SGPT 23 U/L (16-61); Albumin, Serum 3.5 g/dL (3.2-5.0); Alkaline Phosphatase 86 U/L (45-117); Anion Gap 6 (5-15); BUN 20 mg/dL (7-18); BUN/Creat Ratio 26.5 RATIO (10-20); Calcium,Total 9.2 mg/dL (8.5-10.1); Chloride 98 mmol/L (98-107); Creatinine, Serum 0.75 mg/dL (0.70-1.30); EST Glomerular Filtration Rate 106 mL/min (>60); Est Glom Filt Rate - Afr Amer 129 mL/min (>60); Estimated Creatinine Clearance 58.21 ml/min; Globulin 3.5 g/dL (2.2-4.2); Glucose 106 mg/dL (74-106); Potassium 4.2 mmol/L (3.5-5.1); Sodium Level 133 mmol/L (136-145)
[2021-01-28 17:26] LABS: Lactic Acid 1.5 mmol/L (0.4-1.9)
[2021-01-28 17:33] VITALS: BP 131/75; PULSE 81; PULSE 85; RESP 16; TEMP 36.7; O2SAT 97
[2021-01-28 18:26] VITALS: BP 130/77; PULSE 85; PULSE 89; RESP 16; TEMP 36.8; O2SAT 98
--- NOTE | 2021-01-28 18:34 | ED.RN ---
per dr hines hold macrobid since pt is currently taking amoxicillin and doxycycline.
[2021-01-28 19:24] VITALS: BP 154/71; PULSE 96; RESP 16; O2SAT 95
== END 2021-01-29 00:15 | disposition home or self-care (01) ==
PROVIDERS: Emergency Provider Emergency Medicine; PCP Family Medicine
DX: I95.9 Hypotension, unspecified (principal); E86.0 Dehydration; I10 Essential (primary) hypertension; M19.90 Unspecified osteoarthritis, unspecified site; Z87.442 Personal history of urinary calculi; Z79.82 Long term (current) use of aspirin; Z79.899 Other long term (current) drug therapy
CPT/HCPCS: 71045; 80053; 81001; 83605; 84484; 85025; 85610; 85730; 87040; 87086; 87088; 93005; 96360; 99284; J7040; A4216

== ENCOUNTER 2021-05-18 14:08 | Emergency (ER) | payer MEDICARE, SELFPAY ==
[2021-05-18 14:10] VITALS: BP 133/70; PULSE 91; RESP 18; TEMP 36.4; O2SAT 100; BMI 23.0
--- NOTE | 2021-05-18 15:05 | EX.ED.DYSGE1 ---
HPI History of Present Illness Chief Complaint: Edema Informant: patient Narrative Narrative: Patient is a 80-year-old male who presents to the emergency department for leg swelling bilaterally. It has been present over the past 2 weeks. He saw a PA at his PCPs office 1 week ago who increased his hydrochlorothiazide from 12.5 mg to 25 mg. Whenever he called to tell him that this did not have any significant improvement they sent him to the emergency department. Patient is having pain when ambulating on his legs. He has been attempting to brace. He denies any shortness of breath associated with this. No chest pain. No history of DVT/PE. Patient states he has been standing a lot more as he had back surgery in November. He ended up having a septic kidney stone or just after that. Was bedbound for a while but has been going to rehab. He has been ambulating much better lately. The swelling goes from the feet up to the way up to the lower dawson. [facility] Medical History (Updated 05/18/21 @ 16:[address] Tadeo Chew, ) Abdominal pain Arthritis BPH (benign prostatic hyperplasia) Groin pain History of back problems History of hiatal hernia History of kidney stones Hypertension Inguinal hernia bilateral, non-recurrent Left inguinal hernia Right inguinal hernia Home Medications acetaminophen 500 mg PO PRN PRN 04/03/17 [History Last Taken Unknown] finasteride 5 mg PO DAILY 04/03/17 [History Last Taken Unknown] hydrochlorothiazide 12.5 mg PO DAILY 04/03/17 [History Last Taken 07/18/19 05:30 12.5 MG] tamsulosin 0.4 mg PO DAILY 04/03/17 [History Last Taken Unknown] doxycycline hyclate 20 mg tablet 100 mg PO QMWF tab 03/13/19 [History Last Taken Unknown] metronidazole 0.75 % topical cream 1 applic TOPICAL BID 07/16/19 [History Last Taken Unknown] omeprazole 20 mg capsule,delayed release 20 mg PO DAILY 07/16/19 [History Last Taken Unknown] Lactobacillus acidophilus 10 mg PO DAILY 01/28/21 [History Last Taken Unknown] amoxicillin 500 mg PO DAILY 01/28/21 [History Last Taken Unknown] aspirin [Aspirin Low Dose] 81 mg PO DAILY 01/28/21 [History Last Taken Unknown] calcium carbonate-vitamin D3 1 tab PO BID 01/28/21 [History Last Taken Unknown] lisinopril [Zestril] 5 mg PO DAILY 01/28/21 [History Last Taken Unknown] melatonin 3 mg PO QHS 01/28/21 [History Last Taken Unknown] oxycodone 5 mg PO DAILY PRN 01/28/21 [History Last Taken Unknown] trazodone 50 mg PO QHS 01/28/21 [History Last Taken Unknown] buspirone 5 mg PO BID 05/18/21 [History Last Taken Unknown] furosemide [Lasix] 40 mg PO DAILY #3 tab 05/18/21 [Rx Last Taken Unknown] multivitamin 1 tab PO DAILY 05/18/21 [History Last Taken Unknown] sulfamethoxazole-trimethoprim [Bactrim DS] 1 tab PO BID 7 Days #14 tab 05/18/21 [Rx Last Taken Unknown] Allergy/AdvReac Type Severity Reaction Status Date / Time Iodinated Contrast Media Allergy Hives Verified 05/18/21 14:11 [CONTRASTS] azelaic acid [From Finacea] AdvReac Rash Verified 05/18/21 14:11 cephalexin [From Keflex] AdvReac Rash Verified 05/18/21 14:11 ciprofloxacin [From Cipro] AdvReac Nausea Verified 05/18/21 14:11 doxazosin [From Cardura] AdvReac Nausea Verified 05/18/21 14:11 gabapentin AdvReac Other Verified 05/18/21 14:11 ketoconazole AdvReac Diarrhea Verified 05/18/21 14:11 levofloxacin AdvReac Rash Verified 05/18/21 14:11 meloxicam [From Mobic] AdvReac Nausea Verified 05/18/21 14:11 misoprostol [From Cytotec] AdvReac Nausea Verified 05/18/21 14:11 nabumetone [From Relafen] AdvReac Nausea Verified 05/18/21 14:11 NSAIDS (Non-Steroidal AdvReac Nausea Verified 05/18/21 14:11 Anti-Inflamma sulfamethoxazole AdvReac Nausea Verified 05/18/21 14:11 [From Bactrim] terbinafine AdvReac Nausea Verified 05/18/21 14:11 trimethoprim [From Bactrim] AdvReac Nausea Verified 05/18/21 14:11 valdecoxib [From Bextra] AdvReac Other Verified 05/18/21 14:11 Family History Father Colon cancer Mother Cancer lung Hypertension Brother Cancer Surgical History history exacorporeal shock wave lithrotripsy history lap hiatal hernia repair History of bilateral cataract extraction History of colonoscopy (~02/2019) History of hemorrhoidectomy History of laparoscopic cholecystectomy History of left inguinal hernia repair (~07/18/19) History of right inguinal hernia repair history repair left thumb history ureteral stent insertion Hx of repair of left rotator cuff Hx of repair of right rotator cuff Social History household members: spouse Smoking Status: Never smoker alcohol intake: current alcohol intake frequency: a few times a month substance use type: does not use ROS ROS ED Constitutional Constitutional ED: Denies chills or fever(s) ENT ENT ED: Denies epistaxis Cardiovascular Cardiovascular: Denies chest pain or palpitations Respiratory/Chest Respiratory/Chest: Denies cough or dyspnea Gastrointestinal Gastrointestinal: Denies abdominal pain, diarrhea, nausea or vomiting Genitourinary Genitourinary ED: Denies dysuria or hematuria Musculoskeletal Musculoskeletal: Denies back pain or neck pain Integumentary Denies rash Neurologic Neurologic: Denies dizziness, headache(s) or weakness EXAM Physical Exam Const Vital Signs: 05/18/21 14:10 05/18/21 15:09 05/18/21 17:10 Temperature 97.5 F L Temperature Source Temporal Pulse Rate 91 88 Respiratory Rate 18 16 Respiratory Effort Normal Non-Labored Blood Pressure 133/70 H 140/89 H Blood Pressure Mean 91 Pulse Ox 100 99 Oxygen Delivery Method Room Air Positive well nourished and well developed General Appearance ED: well developed and NAD HEENT Reports normocephalic, head/scalp atraumatic and moist mucous membranes Eyes PERRL and EOMs intact bilaterally Neck supple Chest Wall inspection of chest normal Resp normal respiratory effort and clear to auscultation bilaterally Auscultation: Negative for rales, rhonchi or wheezes Cardio regular rate, regular rhythm and no murmurs GI normal to inspection, nondistended, normoactive bowel sounds and non-tender Palpation: soft; Negative for guarding or rebound tenderness present Extremity Extremity Narrative: Pitting edema bilateral lower extremities extending up to distal dawson. He is neurovascular intact. No calf tenderness. No overlying skin changes. Neuro Sensorium / Orientation: alert Motor Exam: strength 5/5 throughout Psych mental status grossly normal Skin no rashes or lesions noted MDM MDM MDM Narrative Medical decision making narrative: Patient presents to the ED for bilateral lower leg swelling. Patient has been standing much more lately. Back surgery improving low back pain/sciatica pain. On arrival to the ED is satting 100%. Rest of vital signs within normal limits. He is in no acute distress. Will check basic lab work to evaluate kidney function. Patient's lab work-up showed a mild leukopenia. His hemoglobin is 11.7. No electrolyte disturbance or decrease in kidney function. His urine was positive for urinary tract infection with nitrites, white blood cells, leukocyte esterase and bacteria. Patient will be placed on Bactrim as he states he does have many allergies but he has tolerated this well before in the past. Patient will be given a dose of Lasix and a prescription for this. Is given a prescription for the Bactrim. He is to follow-up with his PCP. Did advise on leg compressions and elevating the legs above the level of the heart. I have low concern for blood clots as this is bilateral. He will be discharged home in stable condition. Return precautions reviewed. He is agreeable with this plan. Lab Data Labs: Laboratory Results - last 24 hr 05/18/21 05/18/21 05/18/21 15:15 15:15 15:15 WBC 3.8 L RBC 3.86 L Hgb 11.7 L Hct 37.3 L MCV 96.6 H MCH 30.3 MCHC 31.4 L RDW Std Deviation 50.6 H RDW Coeff of Ezequiel 14.2 Plt Count 182 MPV 8.8 Immature Gran % (Auto) 0.300 Neut % (Auto) 43.5 L Lymph % (Auto) 42.6 H [place] % (Auto) 10.7 H Eos % (Auto) 2.1 Baso % (Auto) 0.8 Absolute Neuts (auto) 1.7 L Absolute Lymphs (auto) 1.63 Nucleated RBC % 0 Sodium 139 Potassium 3.6 Chloride 104 Carbon Dioxide 31.0 Anion Gap 4 L BUN 17 Creatinine 0.80 Estim Creat Clear Calc 83.00 Est GFR (MDRD) Af Amer 120 Est GFR (MDRD) Non-Af 100 BUN/Creatinine Ratio 21.3 H Glucose 106 Calcium 9.0 Total Bilirubin 0.50 AST 17 ALT 23 Alkaline Phosphatase 71 B-Natriuretic Peptide 49.6 Total Protein 6.8 Albumin 3.8 Globulin 3.0 Albumin/Globulin Ratio 1.3 Urine Color Urine Clarity Urine pH Ur Specific [place] Urine Protein Urine Glucose (UA) Urine Ketones Urine Occult Blood Urine Nitrite Urine Bilirubin Urine Urobilinogen Ur Leukocyte Esterase Urine RBC Urine WBC Ur Squamous Epith Cells Urine Bacteria Urine Mucus 05/18/21 16:03 WBC RBC Hgb Hct MCV MCH MCHC RDW Std Deviation RDW Coeff of Ezequiel Plt Count MPV Immature Gran % (Auto) Neut % (Auto) Lymph % (Auto) [place] % (Auto) Eos % (Auto) Baso % (Auto) Absolute Neuts (auto) Absolute Lymphs (auto) Nucleated RBC % Sodium Potassium Chloride Carbon Dioxide Anion Gap BUN Creatinine Estim Creat Clear Calc Est GFR (MDRD) Af Amer Est GFR (MDRD) Non-Af BUN/Creatinine Ratio Glucose Calcium Total Bilirubin AST ALT Alkaline Phosphatase B-Natriuretic Peptide Total Protein Albumin Globulin Albumin/Globulin Ratio Urine Color Yellow Urine Clarity Clear Urine pH 6.0 Ur Specific [place] 1.015 Urine Protein Negative Urine Glucose (UA) Normal Urine Ketones Negative Urine Occult Blood 50 H Urine Nitrite Positive H Urine Bilirubin Negative Urine Urobilinogen Normal Ur Leukocyte Esterase 500 H Urine RBC 0 SEEN Urine WBC 10-25 SEEN Ur Squamous Epith Cells 0-5 SEEN Urine Bacteria 1+ Urine Mucus 0 SEEN Discharge Plan Triage Chief Complaint: Edema ED Provider: Tadeo Chew Dx/Rx/DC Orders Clinical Impression: Bilateral edema of lower extremity, UTI (urinary tract infection) Instructions: Urinary Tract Infections in Men, ED Peripheral Edema, Bilateral Prescriptions: New furosemide [Lasix] 40 mg tablet 40 mg PO DAILY Qty: 3 RF: 0 sulfamethoxazole-trimethoprim [Bactrim DS] 800-160 mg tablet 1 tab PO BID 7 Days Qty: 14 RF: 0 No Action metronidazole 0.75 % cream 1 applic TOPICAL BID RF: 0 omeprazole 20 mg capsule,delayed release(DR/EC) 20 mg PO DAILY RF: 0 acetaminophen 500 MG tablet 500 mg PO PRN PRN (Reason: Pain) RF: 0 tamsulosin 0.4 MG capsule 0.4 mg PO DAILY RF: 0 hydrochlorothiazide 12.5 MG capsule 12.5 mg PO DAILY RF: 0 finasteride 5 MG tablet 5 mg PO DAILY RF: 0 doxycycline hyclate 20 mg tablet 100 mg PO QMWF RF: 0 amoxicillin 500 mg capsule 500 mg PO DAILY RF: 0 trazodone 50 mg tablet 50 mg PO QHS RF: 0 melatonin 3 mg Tablet 3 mg PO QHS RF: 0 aspirin [Aspirin Low Dose] 81 mg Tablet,Delayed Release (Dr/Ec) 81 mg PO DAILY RF: 0 lisinopril [Zestril] 5 mg tablet 5 mg PO DAILY RF: 0 Lactobacillus acidophilus Capsule 10 mg PO DAILY RF: 0 oxycodone 5 mg tablet 5 mg PO DAILY PRN (Reason: Pain) RF: 0 calcium carbonate-vitamin D3 600 mg(1,500mg) -500 unit Tablet Extended Release 24 Hr 1 tab PO BID RF: 0 multivitamin Tablet 1 tab PO DAILY RF: 0 buspirone 5 mg Tablet 5 mg PO BID RF: 0 Primary Care Provider: Francisco Bahena Referrals: Francisco Bahena MD [Primary Care Provider] - 2 Days Disposition Disposition: Home, Self Care Discharge Date/Time: 05/18/21 17:11
[2021-05-18 15:27] LABS: Absolute Lymphocyte Count 1.63 X10^3/uL (0.83-4.51); Absolute Neutrophil Count 1.7 X10^3/uL (2.0-7.7); Basophil# 0.03 X10^3/uL; Basophil% 0.8 % (0-1); Eosinophil# 0.08 X10^3/uL; Eosinophils% 2.1 % (0-5); Hematocrit 37.3 % (40-54); Hemoglobin 11.7 g/dL (13.0-16.5); Lymphocyte # 1.63 X10^3/ul (0.83-4.51); Lymphocyte % 42.6 % (19-41); Mean Corp Hgb Conc 31.4 g/dL (32-36); Mean Corpuscular Hgb 30.3 pg (27.0-32.0); Mean Corpuscular Volume 96.6 fL (80-94); Mean Platelet Vol. 8.8 fl (6.2-12.0); Monocyte# 0.41 X10^3/uL; Monocyte% 10.7 % (0-10); NRBC Flagged by Analyzer 0 % (0-5); Neutrophil # 1.67 X10^3/uL (2.7-7.7); Neutrophil % 43.5 % (47-70); Platelet Count 182 K/mm3 (150-450); RBC Distribution Width CV 14.2 % (11.6-14.6); RBC Distribution Width SD 50.6 fl (35.1-43.9); Red Blood Count 3.86 M/mm3 (4.6-6.2); White Blood Count 3.8 K/mm3 (4.4-11.0)
[2021-05-18 15:43] LABS: ALB/GLOB Ratio 1.3 RATIO (0.9-2.4); AST(SGOT) 17 U/L (15-37); Alanine Aminotransfer ALT/SGPT 23 U/L (16-61); Albumin, Serum 3.8 g/dL (3.2-5.0); Alkaline Phosphatase 71 U/L (45-117); Anion Gap 4 (5-15); BUN 17 mg/dL (7-18); BUN/Creat Ratio 21.3 RATIO (10-20); Chloride 104 mmol/L (98-107); EST Glomerular Filtration Rate 100 mL/min (>60); Est Glom Filt Rate - Afr Amer 120 mL/min (>60); Glucose 106 mg/dL (74-106); Potassium 3.6 mmol/L (3.5-5.1); Protein, Total 6.8 g/dL (6.4-8.2); Sodium Level 139 mmol/L (136-145)
[2021-05-18 15:50] LABS: BNP,B-Type NATRIURETIC PEPTIDE 49.6 pg/mL (0-100)
[2021-05-18 16:14] LABS: Mucous, Urine 0 SEEN /hpf (<or=2+); Red Blood Cells-Urine 0 SEEN /hpf (0-5)
[2021-05-18 16:22] LABS: Color, Urine Yellow (Yellow); Glucose, Dipstick Normal (Normal); Ketone-Dipstick Negative (Negative); Leukocyte Esterase-Dipstick 500 /ul (Negative); Nitrite-Dipstick Positive (Negative); Occult Blood-Urine 50 /ul (Negative); Protein-Dipstick Negative (Negative); Specific Gravity, Urine 1.015 (1.002-1.030); Urine Bilirubin Dipstick Negative (Negative); Urine Clarity Clear (Clear); Urine Urobilinogen Normal (Normal)
[2021-05-18 16:37] LABS: Bacteria 1+ /hpf (None Seen); Squamous Epithelial Cells - UA 0-5 SEEN /hpf (0-5); White Blood Cells 10-25 SEEN /hpf (0-5)
[2021-05-18] MEDS: Furosemide 40 MG Tablet PO (16:39)
[2021-05-18] MEDS: Smz/Tmp Ds Tablet 1 TABLET PO (17:05)
[2021-05-18 17:10] VITALS: BP 140/89; PULSE 88; RESP 16; O2SAT 99
== END 2021-05-18 17:11 | disposition home or self-care (01) ==
PROVIDERS: Emergency Provider Emergency Medicine; PCP Family Medicine
DX: R60.0 Localized edema (principal); N39.0 Urinary tract infection, site not specified; I10 Essential (primary) hypertension; M19.90 Unspecified osteoarthritis, unspecified site; Z79.82 Long term (current) use of aspirin; Z79.899 Other long term (current) drug therapy
CPT/HCPCS: 80053; 81001; 83880; 85025; 99283; A4216

== ENCOUNTER → 2022-04-09 | Outpatient (CLI) | payer MEDICARE, SELFPAY ==
--- NOTE | 2022-04-09 10:15 | RAD_ITS ---
STUDY: X-RAY - ESOPHAGUS (BARIUM SWALLOW) WITH FLUOROSCOPY REASON FOR EXAM: Male, 81 years old. DYSPHAGIA TECHNIQUE: 33 view(s) of the esophagus were obtained following swallowing of barium. FLUOROSCOPY TIME (if supplied): (1 minute and 44 seconds) minutes/seconds COMPARISON: None. FINDINGS: There is no demonstrated esophageal foreign body. There is no demonstrated stricture or mucosal abnormality. Moderate-sized hiatal hernia without gastroesophageal reflux. The patient ingested a 12 mm tablet of barium. The tablet is trapped at the gastroesophageal junction. There is atherosclerotic calcification of the aortic arch with tortuosity of the descending aorta. Normal visualized pulmonary parenchyma. There are diffuse degenerative changes of the visualized thoracic spine. RAD/Esophagus Dual Contrast IMPRESSION: Moderate sized hiatal hernia. The ingested 12 mm tablet of barium is trapped at the level of the gastroesophageal junction. Electronically Signed: Qasim Hernandez MD at 10:45 EDT ,
== END | disposition home or self-care (01) ==
PROVIDERS: PCP Family Medicine; Referring Provider Otolaryngology; Visit Provider Otolaryngology
DX: R13.10 Dysphagia, unspecified (principal)
CPT/HCPCS: 74221

== ENCOUNTER 2022-05-03 06:48 | Emergency (ER) | payer MEDICARE, SELFPAY ==
[2022-05-03 06:49] VITALS: BP 171/92; PULSE 89; RESP 16; TEMP 36.7; O2SAT 100; BMI 28.5
--- NOTE | 2022-05-03 07:16 | VDLE_ITS ---
Version 2 Reason For Study: edema RIGHT LEFT GSV is normal. GSV is normal. CFV is compressible, spontaneous, phasic, CFV is compressible, spontaneous, phasic, competent and demonstrates normal competent, and demonstrates normal augmentation. augmentation. FV is compressible, spontaneous, phasic, FV is compressible, spontaneous, phasic, competent and demonstrates normal competent and demonstrates normal augmentation. augmentation. POP V is compressible, spontaneous, phasic, POP V is compressible, spontaneous, phasic, competent and demonstrates normal competent and demonstrates normal augmentation. augmentation. T/P Trunk is compressible. T/P Trunk is compressible. PTV is compressible. PTV is compressible. RT PerV is compressible. LT PerV is compressible. Hypoechoic area behind the knee measuring .85 x 3.61 cm in short. Area is nonvascular. Procedure This is a venous duplex using B-mode, color flow and spectral Doppler. Exam performed portable in ED. The exam was diagnostic. A preliminary report was called and/or faxed to ED RN. VL/Venous Duplex US - Rajat Extrem Interpretation Summary Deep veins of the right lower extremity are patent and compressible segmentally . There is no evidence of right lower extremity deep vein thrombosis. The right great sapheno us vein appears patent and compressible segmentally. Deep veins of the left lower extremity are patent and compressible segmentally. There is no evidence of left lower extremity deep vein thrombosis. The left great saphenous vein wolfgang ears patent and compressible segmentally. Incidental finding, hypoechoic area right popliteal fossa 0.85 x 3.61 cm Ordering Physician: Mattie Esparza Performed By: Javan Salas RVT
--- NOTE | 2022-05-03 07:16 | EKG12_ITS ---
Test Reason : EDEMA Blood Pressure : / mmHG Vent. Rate : 069 BPM Atrial Rate : 069 BPM P-R Int : 182 ms QRS Dur : 124 ms QT Int : 420 ms P-R-T Axes : 069 002 047 degrees QTc Int : 450 ms Sinus rhythm with occasional Premature ventricular complexes Right bundle branch block Abnormal ECG Confirmed by VIDYA FAIRBANKS, EVE ([id number]), online editor LEONARD MCDONOUGH ([id number]) on 05/04/2022 9:20:33 AM Referred By: IRENE Confirmed By:EVE DASILVA MD
--- NOTE | 2022-05-03 07:16 | RAD_ITS ---
EXAM: XR CHEST, 1 VIEW CLINICAL INDICATION: Edema. TECHNIQUE: Frontal view of the chest. This report was created using [employer] report generation technology. COMPARISON: 01/28/2021. FINDINGS: LUNGS AND PLEURAL SPACES: Mild pulmonary hyperinflation. No suspicious infiltrates. No pneumothorax. No effusion. HEART: Unremarkable. Cardiac silhouette not enlarged. MEDIASTINUM: Central airways and mediastinal contour are unremarkable. BONES/JOINTS: Unremarkable. SOFT TISSUES: Unremarkable. OTHER FINDINGS: Rotated chest positioning. RAD/Chest 1 View (Portable) IMPRESSION: No acute findings in the chest and unchanged when compared to 01/28/2021. Electronically Signed: Pool Lunsford MD at 8:54 EDT ,
[2022-05-03 07:30] LABS: Absolute Lymphocyte Count 1.77 X10^3/uL (0.83-4.51); Absolute Neutrophil Count 1.7 X10^3/uL (2.0-7.7); Basophil# 0.03 X10^3/uL; Basophil% 0.7 % (0-1); Eosinophil# 0.15 X10^3/uL; Eosinophils% 3.7 % (0-5); Hematocrit 40.4 % (40-54); Hemoglobin 13.1 g/dL (13.0-16.5); Lymphocyte # 1.77 X10^3/ul (0.83-4.51); Lymphocyte % 43.3 % (19-41); Mean Corp Hgb Conc 32.4 g/dL (32-36); Mean Corpuscular Hgb 30.5 pg (27.0-32.0); Mean Platelet Vol. 9.7 fl (6.2-12.0); Monocyte# 0.45 X10^3/uL; NRBC Flagged by Analyzer 0 % (0-5); Neutrophil # 1.68 X10^3/uL (2.7-7.7); Neutrophil % 41.1 % (47-70); Platelet Count 173 K/mm3 (150-450); RBC Distribution Width CV 12.8 % (11.6-14.6); RBC Distribution Width SD 43.8 fl (35.1-43.9); White Blood Count 4.1 K/mm3 (4.4-11.0)
[2022-05-03 07:41] LABS: Anion Gap 6 (5-15); BUN 22 mg/dL (7-18); Calcium,Total 8.9 mg/dL (8.5-10.1); Chloride 104 mmol/L (98-107); Creatinine, Serum 0.88 mg/dL (0.70-1.30); EST Glomerular Filtration Rate 89 mL/min (>60); Est Glom Filt Rate - Afr Amer 107 mL/min (>60); Estimated Creatinine Clearance 76.92 ml/min; Glucose 102 mg/dL (74-106); Potassium 3.6 mmol/L (3.5-5.1); Sodium Level 140 mmol/L (136-145)
[2022-05-03 07:51] LABS: BNP,B-Type NATRIURETIC PEPTIDE 26.5 pg/mL (0-100)
[2022-05-03 08:50] VITALS: BP 132/65; PULSE 74; RESP 16; O2SAT 100
[2022-05-03] MEDS: Pantoprazole Sodium 40 MG Tablet PO (08:51)
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
[2022-05-03 09:59] VITALS: BP 161/97; PULSE 72; RESP 16; O2SAT 97
== END 2022-05-03 10:00 | disposition home or self-care (01) ==
PROVIDERS: Emergency Provider Emergency Medicine; PCP Family Medicine; Visit Provider Emergency Medicine
DX: R60.0 Localized edema (principal); M71.21 Synovial cyst of popliteal space [Baker], right knee; I10 Essential (primary) hypertension; Z79.899 Other long term (current) drug therapy
CPT/HCPCS: 71045; 80048; 83880; 85025; 93005; 93970; 99283

== ENCOUNTER → 2022-05-17 | Outpatient (CLI) | payer MEDICARE, SELFPAY ==
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
== END | disposition home or self-care (01) ==
LOC: RAD 13:00
PROVIDERS: PCP Family Medicine; Referring Provider Internal Medicine Gastroenterology; Visit Provider Internal Medicine Gastroenterology
DX: R13.10 Dysphagia, unspecified (principal)
CPT/HCPCS: 74230; 92611

== ENCOUNTER 2022-08-16 18:49 | Emergency (ER) | payer MEDICARE, SELFPAY ==
[2022-08-16 18:50] VITALS: PULSE 92; RESP 18; TEMP 37.2; O2SAT 100; BMI 21.7
[2022-08-16 18:53] VITALS: BP 124/53
[2022-08-16 20:11] LABS: Absolute Lymphocyte Count 0.84 X10^3/uL (0.83-4.51); Absolute Neutrophil Count 4.8 X10^3/uL (2.0-7.7); Basophil# 0.01 X10^3/uL; Basophil% 0.2 % (0-1); Eosinophil# 0.03 X10^3/uL; Eosinophils% 0.5 % (0-5); Hematocrit 37.3 % (40-54); Hemoglobin 12.2 g/dL (13.0-16.5); Lymphocyte # 0.84 X10^3/ul (0.83-4.51); Lymphocyte % 14.6 % (19-41); Mean Corp Hgb Conc 32.7 g/dL (32-36); Mean Corpuscular Hgb 30.3 pg (27.0-32.0); Mean Corpuscular Volume 92.8 fL (80-94); Mean Platelet Vol. 9.7 fl (6.2-12.0); Monocyte# 0.02 X10^3/uL; Monocyte% 0.3 % (0-10); NRBC Flagged by Analyzer 0 % (0-5); Neutrophil # 4.83 X10^3/uL (2.7-7.7); Neutrophil % 84.1 % (47-70); Platelet Count 264 K/mm3 (150-450); RBC Distribution Width CV 12.8 % (11.6-14.6); RBC Distribution Width SD 43.8 fl (35.1-43.9); Red Blood Count 4.02 M/mm3 (4.6-6.2); White Blood Count 5.8 K/mm3 (4.4-11.0)
[2022-08-16 20:26] LABS: Anion Gap 8 (5-15); BUN 34 mg/dL (7-18); Calcium,Total 9.4 mg/dL (8.5-10.1); Chloride 99 mmol/L (98-107); EST Glomerular Filtration Rate 77 mL/min (>60); Est Glom Filt Rate - Afr Amer 93 mL/min (>60); Estimated Creatinine Clearance 63.41 ml/min; Glucose 93 mg/dL (74-106); Potassium 3.2 mmol/L (3.5-5.1); Sodium Level 139 mmol/L (136-145)
[2022-08-16 20:50] VITALS: BP 131/78; PULSE 78; RESP 16; O2SAT 98
[2022-08-16 22:15] VITALS: BP 131/88; PULSE 78; RESP 16; O2SAT 100
--- NOTE | 2022-08-16 22:16 | EDS_ITS ---
HPI History of Present Illness Chief Complaint: Fatigue Informant: patient and spouse/S.O. Narrative Narrative: Here by EMS significant other however due to busy department was placed in triage. He was brought back. Status post esophageal diverticulum repair at [facility]. Initial on the third he had to return on the fifth of this month. Still has trouble swallowing has another barium swallow be done tomorrow at [facility]. He is here today due to having chills and shakes. He has been having a productive cough since surgery. No fevers. Denies vomiting or diarrhea denies urinary symptoms. Spouse reports had sepsis from obstructive kidney stones in the past. His chronic back pain denies urine symptoms. COVID- vaccine with the booster no infections in the past. Prior similar symptoms: Yes PFSH PFSH Medical History Abdominal pain Arthritis BPH (benign prostatic hyperplasia) Groin pain History of back problems History of hiatal hernia History of kidney stones Hypertension Inguinal hernia bilateral, non-recurrent Left inguinal hernia Right inguinal hernia Home Medications acetaminophen 500 mg tablet 500 mg PO PRN PRN Pain 04/03/17 [History Last Taken Unknown] finasteride 5 mg tablet 5 mg PO DAILY 04/03/17 [History Last Taken Unknown] hydrochlorothiazide 12.5 mg capsule 12.5 mg PO DAILY 04/03/17 [History Last Taken 07/18/19 05:30 12.5 MG] tamsulosin 0.4 mg capsule 0.4 mg PO DAILY 04/03/17 [History Last Taken Unknown] doxycycline hyclate 20 mg tablet 20 mg PO BID 03/13/19 [History Last Taken Unknown] metronidazole 0.75 % topical cream 1 applic topical BID 07/16/19 [History Last Taken Unknown] Lactobacillus acidophilus 10 mg PO DAILY 01/28/21 [History Last Taken Unknown] aspirin 81 mg tablet,delayed release (Rika Low Dose Aspirin) 81 mg PO DAILY 01/28/21 [History Last Taken Unknown] calcium carb-vitamin D3 ER 600 mg (1,500 mg)-500 unit tablet,ER 24 hr 1 tab PO LUNCH 01/28/21 [History Last Taken Unknown] melatonin 3 mg tablet 5 mg PO QHS 01/28/21 [History Last Taken Unknown] trazodone 50 mg tablet 50 mg PO QHS 01/28/21 [History Last Taken Unknown] multivitamin 1 tab PO DAILY 05/18/21 [History Last Taken Unknown] atorvastatin 10 mg tablet 1 tab PO QHS 05/03/22 [History Last Taken Unknown] docusate sodium 250 mg capsule 250 mg PO BID 05/03/22 [History Last Taken Unknown] furosemide 40 mg tablet (Lasix) 20 mg PO DAILY 05/03/22 [History Last Taken Unknown] pantoprazole 40 mg tablet,delayed release 40 mg PO DAILY 05/03/22 [History Last Taken Unknown] quinapril 5 mg tablet (Accupril) 5 mg PO DAILY 05/03/22 [History Last Taken Unknown] nitrofurantoin 25 mg/5 mL oral suspension 100 mg (20 mL) PO BID 7 days #280 mL 08/17/22 [Rx Last Taken Unknown] Allergy/AdvReac Type Severity Reaction Status Date / Time Iodinated Contrast Media Allergy Hives Verified 08/16/22 23:35 [CONTRASTS] azelaic acid [From Finacea] AdvReac Rash Verified 08/16/22 23:35 cephalexin [From Keflex] AdvReac Rash Verified 08/16/22 23:35 ciprofloxacin [From Cipro] AdvReac Nausea Verified 08/16/22 23:35 doxazosin [From Cardura] AdvReac Nausea Verified 08/16/22 23:35 gabapentin AdvReac Other Verified 08/16/22 23:35 ketoconazole AdvReac Diarrhea Verified 08/16/22 23:35 levofloxacin AdvReac Rash Verified 08/16/22 23:35 meloxicam [From Mobic] AdvReac Nausea Verified 08/16/22 23:35 misoprostol [From Cytotec] AdvReac Nausea Verified 08/16/22 23:35 nabumetone [From Relafen] AdvReac Nausea Verified 08/16/22 23:35 NSAIDS (Non-Steroidal AdvReac Nausea Verified 08/16/22 23:35 Anti-Inflamma sulfamethoxazole AdvReac Nausea Verified 08/16/22 23:35 [From Bactrim] terbinafine AdvReac Nausea Verified 08/16/22 23:35 trimethoprim [From Bactrim] AdvReac Nausea Verified 08/16/22 23:35 valdecoxib [From Bextra] AdvReac Other Verified 11/21/22 23:35 Family History Father Colon cancer Mother Cancer lung Hypertension Brother Cancer Surgical History history exacorporeal shock wave lithrotripsy history lap hiatal hernia repair History of bilateral cataract extraction History of colonoscopy (~02/2019) History of hemorrhoidectomy History of laparoscopic cholecystectomy History of left inguinal hernia repair (~07/18/19) History of right inguinal hernia repair history repair left thumb history ureteral stent insertion Hx of repair of left rotator cuff Hx of repair of right rotator cuff Social History household members: spouse Smoking Status: Never smoker alcohol intake: current alcohol intake frequency: a few times a month substance use type: does not use ROS ROS ED Constitutional Constitutional ED: Reports chills; Denies fever(s) or sweats Eyes Eyes: Denies change in vision ENT ENT ED: Denies dysphagia or sore throat Cardiovascular Cardiovascular: Denies chest pain, leg edema, palpitations or racing heartbeat Respiratory/Chest Respiratory/Chest: Reports cough; Denies dyspnea or dyspnea on exertion Gastrointestinal Gastrointestinal: Denies abdominal pain, diarrhea, nausea or vomiting Genitourinary Genitourinary ED: Reports urinary frequency; Denies dysuria or hematuria Musculoskeletal Musculoskeletal: Denies back pain, extremity pain or neck pain Integumentary Denies rash or wounds Neurologic Neurologic: Denies headache(s), paresthesias or weakness EXAM Physical Exam Const Vital Signs: 08/16/22 18:50 08/16/22 18:53 08/16/22 19:50 Temperature 98.9 F Temperature Source Temporal Pulse Rate 92 Respiratory Rate 18 Respiratory Pattern Normal Blood Pressure 124/53 H Blood Pressure Mean 76 Pulse Ox 100 Oxygen Delivery Method Room Air 08/16/22 20:50 08/16/22 22:15 Temperature Temperature Source Pulse Rate 78 78 Respiratory Rate 16 16 Respiratory Pattern Blood Pressure 131/78 H 131/88 H Blood Pressure Mean 95 102 Pulse Ox 98 100 Oxygen Delivery Method Room Air Room Air Positive well nourished and well developed General Appearance ED: well developed and NAD HEENT Reports moist mucous membranes normocephalic and atraumatic Eyes PERRL, EOMs intact bilaterally and conjunctivae normal General Eye ED: Yes normal appearance of both eyes Neck no lymphadenopathy and supple Neck Narrative: Left lateral neck wound appears clean, dry intact there is no erythema no induration no fluctuance no drainage. General: Negative for tenderness Chest Wall Chest: Negative for tenderness Resp normal respiratory effort and normal air movement Effort and Inspection: symmetric chest movement; Negative for respiratory distress Cardio regular rate, regular rhythm and no murmurs Peripheral Pulses: pulses 2+ throughout GI normal to inspection, nondistended, normoactive bowel sounds and non-tender Palpation: Negative for guarding or rebound tenderness present Back/Spine no CVA tenderness and no thoracic nor lumbar tenderness Extremity normal to inspection General Extremety ED: Negative for edema or tenderness General Extremity: Negative for edema Neuro oriented x3 and no sensory deficits noted Sensorium / Orientation: awake and alert Skin Skin Narrative: See above neck wound MDM MDM MDM Narrative Medical decision making narrative: Patient exam nontoxic vital signs are stable. His wound incision site looks well clean dry and intact without any signs of infection. Reported chills. Continued cough since his surgery, 2 view chest x-ray reviewed by myself and read by radiology negative for any acute process. Urine frequency. Rapid COVID and flu were negative. Labs White count 5.8 hemoglobin 12.2. Potassium 3.2 he is on a diuretic however no potassium replacement. Is orally replaced. Urine obtained noted nitrites and leukocytes with greater than 100 WBCs. Culture sent. Multiple allergies. Nontoxic is able to tolerate Macrobid pills in the ED. With his obstructive sepsis UTI in the past with stated low back pain. CT scan abdomen pelvis obtained noted left nephrolithiasis with no obstructive findings. With his surgery history there is been difficulty swallowing. He opted for liquid antibiotics. This was written and printed so he can fill tomorrow. He has a morning barium swallow at [facility]. He will follow-up as an outpatient. All questions were answered. Lab Data Attestation: I reviewed the patient's lab results. Labs: Laboratory Results - last 24 hr 08/16/22 08/16/22 08/16/22 20:00 20:00 22:25 WBC 5.8 RBC 4.02 L Hgb 12.2 L Hct 37.3 L MCV 92.8 MCH 30.3 MCHC 32.7 RDW Std Deviation 43.8 RDW Coeff of Ezequiel 12.8 Plt Count 264 MPV 9.7 Immature Gran % (Auto) 0.300 Neut % (Auto) 84.1 H Lymph % (Auto) 14.6 L [place] % (Auto) 0.3 Eos % (Auto) 0.5 Baso % (Auto) 0.2 Absolute Neuts (auto) 4.8 Absolute Lymphs (auto) 0.84 Nucleated RBC % 0 Sodium 139 Potassium 3.2 L Chloride 99 Carbon Dioxide 32.0 Anion Gap 8 BUN 34 H Creatinine 1.00 Estim Creat Clear Calc 63.41 Est GFR (MDRD) Af Amer 93 Est GFR (MDRD) Non-Af 77 BUN/Creatinine Ratio 34.0 H Glucose 93 Calcium 9.4 Urine Color Yellow Urine Clarity Sl. Cloudy Urine pH 6.0 Ur Specific [place] 1.015 Urine Protein 15 H Urine Glucose (UA) Normal Urine Ketones 5 H Urine Occult Blood 25 H Urine Nitrite Positive H Urine Bilirubin Negative Urine Urobilinogen Normal Ur Leukocyte Esterase 500 H Urine RBC 0-5 SEEN Urine WBC >100 SEEN Ur Squamous Epith Cells 0 SEEN Urine Bacteria 2+ Urine Mucus 0 SEEN Urine Yeast RARE Radiography Diagnostic Testing: Clinical Impression(s) from Imaging Studies Chest X-Ray 08/16/22 22:30 IMPRESSION: No change compared to the reference exam. No acute pulmonary abnormality. Electronically Signed: Amilcar Hays MD at 22:58 EST , Abdomen/Pelvis CT 08/16/22 22:49 IMPRESSION: 1. Fluid-filled loops of small bowel which may represent an enteritis. There is a stable small hiatal hernia. 2. Nonobstructing left renal calculi. There is no ureteral obstruction identified. Electronically Signed: Amilcar Hays MD at 23:52 EST , Discharge Plan Triage Chief Complaint: Fatigue ED Provider: Vahid Portillo Dx/Rx/DC Orders Clinical Impression: Acute UTI, Chills, Urine frequency, Acute hypokalemia Instructions: Urinary Tract Infections in Men, ED Hypokalemia Prescriptions: New nitrofurantoin 25 mg/5 mL suspension 100 mg PO BID 7 Days Qty: 280 0RF Rx Instructions: must administer with a meal/food No Action metronidazole 0.75 % cream 1 applic TOPICAL BID acetaminophen 500 MG tablet 500 mg PO PRN PRN (Reason: Pain) tamsulosin 0.4 MG capsule 0.4 mg PO DAILY Label Comments: TAKE ONE CAPSULE BY MOUTH EVERY DAY hydrochlorothiazide 12.5 MG capsule 12.5 mg PO DAILY Label Comments: finasteride 5 MG tablet 5 mg PO DAILY Label Comments: TAKE 1 TABLET BY MOUTH EVERY DAY doxycycline hyclate 20 mg tablet 20 mg PO BID Label Comments: Rx Instructions: takes at noon on Tue-Tue-Tue trazodone 50 mg tablet 50 mg PO QHS melatonin 3 mg Tablet 5 mg PO QHS aspirin [Rika Low Dose Aspirin] 81 mg Tablet,Delayed Release (Dr/Ec) 81 mg PO DAILY Lactobacillus acidophilus Capsule 10 mg PO DAILY calcium carbonate-vitamin D3 600 mg(1,500mg) -500 unit Tablet Extended Release 24 Hr 1 tab PO LUNCH multivitamin Tablet 1 tab PO DAILY atorvastatin 10 mg tablet 1 tab PO QHS Label Comments: TAKE 1 TABLET BY MOUTH DAILY AT BEDTIME. FOR CHOLESTEROL furosemide [Lasix] 40 mg tablet 20 mg PO DAILY pantoprazole 40 mg Tablet,Delayed Release (Dr/Ec) 40 mg PO DAILY quinapril [Accupril] 5 mg Tablet 5 mg PO DAILY docusate sodium 250 mg Capsule 250 mg PO BID Primary Care Provider: Francisco Bahena Referrals: Francisco Bahena MD [Primary Care Provider] - 3-5 Days Activity Restrictions/Additional Instructions: Labs COVID and influenza negative. Chest x-ray negative. Blood work White count stable potassium 3.2. Urine with infection. Culture sent. Your CT scan abdomen pelvis negative for obstructive kidney stones. Take antibiotic as prescribed. Follow-up with your doctors. Return if any worsening symptoms. Disposition Disposition: Home, Self Care Discharge Date/Time: 08/17/22 00:40
--- NOTE | 2022-08-16 22:30 | RAD_ITS ---
EXAM: XR CHEST, 2 VIEWS CLINICAL INDICATION: cough TECHNIQUE: Frontal and lateral views of the chest. This report was created using [employer] report generation technology. COMPARISON: 05/03/2022 FINDINGS: LUNGS AND PLEURAL SPACES: Unremarkable. No consolidation or edema. No pneumothorax. No effusion. HEART: Unremarkable. Cardiac silhouette not enlarged. MEDIASTINUM: Central airways and mediastinal contour are unremarkable. BONES/JOINTS: Unremarkable. SOFT TISSUES: Unremarkable. RAD/Chest PA and Lateral IMPRESSION: No change compared to the reference exam. No acute pulmonary abnormality. Electronically Signed: Amilcar Hays MD at 22:58 EST ,
[2022-08-16 22:32] LABS: Mucous, Urine 0 SEEN /hpf (<or=2+); Squamous Epithelial Cells - UA 0 SEEN /hpf (0-5)
[2022-08-16 22:36] LABS: Color, Urine Yellow (Yellow); Glucose, Dipstick Normal (Normal); Ketone-Dipstick 5 mg/dl (Negative); Leukocyte Esterase-Dipstick 500 /ul (Negative); Nitrite-Dipstick Positive (Negative); Occult Blood-Urine 25 /ul (Negative); Protein-Dipstick 15 mg/dl (Negative); Specific Gravity, Urine 1.015 (1.002-1.030); Urine Bilirubin Dipstick Negative (Negative); Urine Clarity Sl. Cloudy (Clear); Urine Urobilinogen Normal (Normal)
[2022-08-16 22:42] LABS: Bacteria 2+ /hpf (None Seen); Red Blood Cells-Urine 0-5 SEEN /hpf (0-5); White Blood Cells >100 SEEN /hpf (0-5)
[2022-08-16 22:43] LABS: Yeast-Urine RARE /hpf (None Seen)
--- NOTE | 2022-08-16 22:49 | CT_ITS ---
EXAM: CT ABDOMEN AND PELVIS WITHOUT INTRAVENOUS CONTRAST CLINICAL INDICATION: flank pain TECHNIQUE: Helically acquired images were obtained of the abdomen and pelvis without intravenous contrast. This CT exam was performed using one or more of the following dose reduction techniques: automated exposure control, adjustment of the mA and/or kV according to patient size, and/or use of iterative reconstruction technique. This report was created using [employer] report generation technology. COMPARISON: 06/12/2019 FINDINGS: LOWER THORAX: There is a small hiatal hernia present. Lung bases are clear. No cardiomegaly. No significant pericardial effusion. ABDOMEN: LIVER: Unremarkable. Homogeneous. GALLBLADDER AND BILE DUCTS: Patient is status post cholecystectomy. There is stable dilatation of the common bile duct. PANCREAS: Unremarkable. No focal cystic mass. SPLEEN: Unremarkable. Normal size without focal cystic or solid mass. ADRENALS: Unremarkable. No nodules. KIDNEYS AND URETERS: There is a nonobstructing calyceal stone in the left kidney. Normal renal size and position. STOMACH AND BOWEL: There are mildly dilated fluid-filled loops of small bowel lower abdomen may represent enteritis. PELVIS: APPENDIX: No evidence of acute appendicitis. BLADDER: Unremarkable. REPRODUCTIVE: Unremarkable as visualized. No mass. ABDOMEN and PELVIS: INTRAPERITONEAL SPACE: Unremarkable. No ascites or other fluid collection. No free air. BONES/JOINTS: There are multilevel postsurgical changes in the lumbar spine with bilateral pedicle screws. No suspicious lytic or blastic abnormality. SOFT TISSUES: Unremarkable. No discrete abdominal or pelvic wall hernia. VASCULATURE: Unremarkable. Abdominal aorta is non-dilated. LYMPH NODES: Unremarkable. No enlarged lymph nodes. CT/Abdomen/Pelvis without Cont IMPRESSION: 1. Fluid-filled loops of small bowel which may represent an enteritis. There is a stable small hiatal hernia. 2. Nonobstructing left renal calculi. There is no ureteral obstruction identified. Electronically Signed: Amilcar Hays MD at 23:52 EST ,
[2022-08-16] MEDS: Nitrofurantoin Macrocrystals 100 MG Capsule PO (23:34)
[2022-08-17] MEDS: Potassium Chloride Oral Soln 20 MEQ/15 ML UDC 40 MEQ PO (00:24)
== END 2022-08-17 00:40 | disposition home or self-care (01) ==
PROVIDERS: Emergency Provider Emergency Medicine; PCP Family Medicine; Visit Provider Emergency Medicine
DX: N39.0 Urinary tract infection, site not specified (principal); R13.10 Dysphagia, unspecified; E87.6 Hypokalemia; I10 Essential (primary) hypertension; R53.83 Other fatigue; G89.29 Other chronic pain; R68.83 Chills (without fever); R35.0 Frequency of micturition; M54.9 Dorsalgia, unspecified
CPT/HCPCS: 71046; 74176; 80048; 81001; 85025; 87077; 87086; 87088; 87186; 87428; 99285

== ENCOUNTER 2022-11-08 15:05 | Emergency (ER) | payer MEDICARE, SELFPAY ==
[2022-11-08 15:07] VITALS: BP 137/59; PULSE 98; RESP 19; TEMP 36.5; O2SAT 99; BMI 23.5
--- NOTE | 2022-11-08 15:32 | EX.ED.DYSGE1 ---
HPI History of Present Illness Chief Complaint: Edema Narrative Narrative: Patient presents with bilateral lower extremity edema for the past few days he has had this problem on and off for about a year he is on Lasix although he has not been on Lasix for the past few weeks. He started 20 mg of Lasix 3 days ago and has minimal improvement. His PCP told him to go to the ER. He has no chest pain or shortness of breath. He has no pleuritic component. This is the same edema that he has had in the past it is symmetric. No erythema or pallor. [facility] Medical History Abdominal pain Arthritis BPH (benign prostatic hyperplasia) Groin pain History of back problems History of hiatal hernia History of kidney stones Hypertension Inguinal hernia bilateral, non-recurrent Left inguinal hernia Right inguinal hernia Home Medications acetaminophen 500 mg tablet 500 mg PO PRN PRN Pain 04/03/17 [History Last Taken Unknown] finasteride 5 mg tablet 5 mg PO DAILY 04/03/17 [History Last Taken Unknown] hydrochlorothiazide 12.5 mg capsule 12.5 mg PO DAILY 04/03/17 [History Last Taken 07/18/19 05:30 12.5 MG] tamsulosin 0.4 mg capsule 0.4 mg PO DAILY 04/03/17 [History Last Taken Unknown] doxycycline hyclate 20 mg tablet 20 mg PO BID 03/13/19 [History Last Taken Unknown] metronidazole 0.75 % topical cream 1 applic topical BID 07/16/19 [History Last Taken Unknown] Lactobacillus acidophilus 10 mg PO DAILY 01/28/21 [History Last Taken Unknown] aspirin 81 mg tablet,delayed release (Rika Low Dose Aspirin) 81 mg PO DAILY 01/28/21 [History Last Taken Unknown] calcium carb-vitamin D3 ER 600 mg (1,500 mg)-500 unit tablet,ER 24 hr 1 tab PO LUNCH 01/28/21 [History Last Taken Unknown] melatonin 3 mg tablet 5 mg PO QHS 01/28/21 [History Last Taken Unknown] trazodone 50 mg tablet 50 mg PO QHS 01/28/21 [History Last Taken Unknown] multivitamin 1 tab PO DAILY 05/18/21 [History Last Taken Unknown] atorvastatin 10 mg tablet 1 tab PO QHS 05/03/22 [History Last Taken Unknown] docusate sodium 250 mg capsule 250 mg PO BID 05/03/22 [History Last Taken Unknown] furosemide 40 mg tablet (Lasix) 20 mg PO PRN PRN Edema 05/03/22 [History Last Taken Unknown] pantoprazole 40 mg tablet,delayed release 40 mg PO DAILY 05/03/22 [History Last Taken Unknown] quinapril 5 mg tablet (Accupril) 5 mg PO DAILY 05/03/22 [History Last Taken Unknown] Allergy/AdvReac Type Severity Reaction Status Date / Time Iodinated Contrast Media Allergy Hives Verified 11/08/22 15:06 [CONTRASTS] azelaic acid [From Finacea] AdvReac Rash Verified 11/08/22 15:06 cephalexin [From Keflex] AdvReac Rash Verified 11/08/22 15:06 ciprofloxacin [From Cipro] AdvReac Nausea Verified 11/08/22 15:06 doxazosin [From Cardura] AdvReac Nausea Verified 11/08/22 15:06 gabapentin AdvReac Other Verified 11/08/22 15:06 ketoconazole AdvReac Diarrhea Verified 11/08/22 15:06 levofloxacin AdvReac Rash Verified 11/08/22 15:06 meloxicam [From Mobic] AdvReac Nausea Verified 11/08/22 15:06 misoprostol [From Cytotec] AdvReac Nausea Verified 11/08/22 15:06 nabumetone [From Relafen] AdvReac Nausea Verified 11/08/22 15:06 NSAIDS (Non-Steroidal AdvReac Nausea Verified 11/08/22 15:06 Anti-Inflamma sulfamethoxazole AdvReac Nausea Verified 11/08/22 15:06 [From Bactrim] terbinafine AdvReac Nausea Verified 11/08/22 15:06 trimethoprim [From Bactrim] AdvReac Nausea Verified 11/08/22 15:06 valdecoxib [From Bextra] AdvReac Other Verified 11/08/22 15:06 Family History Father Colon cancer Mother Cancer lung Hypertension Brother Cancer Surgical History history exacorporeal shock wave lithrotripsy history lap hiatal hernia repair History of bilateral cataract extraction History of colonoscopy (~02/2019) History of hemorrhoidectomy History of laparoscopic cholecystectomy History of left inguinal hernia repair (~07/18/19) History of right inguinal hernia repair history repair left thumb history ureteral stent insertion Hx of repair of left rotator cuff Hx of repair of right rotator cuff Social History household members: spouse Smoking Status: Never smoker alcohol intake: current alcohol intake frequency: a few times a month substance use type: does not use ROS ROS ED ROS Narrative Past medical history: Reviewed Medications: Reviewed Social history: Noncontributory Review of systems: All systems negative except as indicated General: No fever ENT: No upper airway congestion, normal voice Neck: No neck pain Cardiovascular: No chest pain Respiratory: No shortness of breath or cough Gastrointestinal: No abdominal pain, nausea vomiting or diarrhea Genitourinary: No dysuria Musculoskeletal: Lower extremity edema as in HPI Skin: No rash Neurological: No memory loss, confusion or any focal weakness Hematologic: No easy bleeding or easy bruising EXAM Physical Exam Narrative Exam Narrative: Physical exam General: Patient appears relatively comfortable Head: Normocephalic, Atraumatic Eyes: Conjunctiva not pale ENT: Moist mucous membranes Neck: Supple, Nontender, No lymphadenopathy Cardiovascular: Regular rate, Regular rhythm Respiratory: Clear lungs bilaterally. Abdomen: Soft, Nontender, Nondistended Back: Nontender, Normal Inspection. Negative for: CVA tenderness Extremities: Bilateral lower extremity edema. It is symmetric. There is no erythema or calor, slightly pale. No evidence of infection and no specific calf pain. Skin: Normal color, No rash Neurological: Alert, Normal Strength, Normal Sensation Const Vital Signs: 11/08/22 15:07 Temperature 97.7 F L Temperature Source Temporal Pulse Rate 98 Respiratory Rate 19 H Blood Pressure 137/59 H Blood Pressure Mean 85 Pulse Ox 99 Oxygen Delivery Method Room Air MDM MDM MDM Narrative Medical decision making narrative: A. Problems addressed patient was worried about CHF however he has clear breath sounds and normal natruretic peptide. He otherwise appears well. The edema does not have a renal or hepatic etiology. Patient appears well. I believe he can be safely discharged I talked to the in the room. Patient will be given Lasix in the ED and we will double the Lasix for home. B. Amount and/or complexity of the data (2 out of 3) 1. I discussed the patient with who was in the room. CBC, CMP, beta natruretic peptide interpreted by me C. Risk of complications and/or morbidity Differential diagnosis: Liver disease, kidney disease, CHF. Is a ruled out blood work Lab Data Labs: Laboratory Results - last 24 hr 11/08/22 11/08/22 11/08/22 15:45 15:45 15:45 WBC 3.6 L RBC 4.05 L Hgb 12.1 L Hct 38.8 L MCV 95.8 H MCH 29.9 MCHC 31.2 L RDW Std Deviation 49.2 H RDW Coeff of Ezequiel 13.8 Plt Count 170 MPV 9.3 Immature Gran % (Auto) 0.300 Neut % (Auto) 50.3 Lymph % (Auto) 36.5 [place] % (Auto) 9.3 Eos % (Auto) 2.8 Baso % (Auto) 0.8 Absolute Neuts (auto) 1.8 L Absolute Lymphs (auto) 1.30 Nucleated RBC % 0 Sodium 141 Potassium 4.1 Chloride 106 Carbon Dioxide 30.0 Anion Gap 5 BUN 23 H Creatinine 0.97 Estim Creat Clear Calc 62.71 Est GFR (MDRD) Af Amer 96 Est GFR (MDRD) Non-Af 79 BUN/Creatinine Ratio 23.8 H Glucose 104 Calcium 8.9 Total Bilirubin 0.50 AST 18 ALT 24 Alkaline Phosphatase 51 B-Natriuretic Peptide 69.4 Total Protein 6.7 Albumin 3.8 Globulin 2.9 Albumin/Globulin Ratio 1.3 Discharge Plan Triage Chief Complaint: Edema ED Provider: Ellis Villanueva Dx/Rx/DC Orders Clinical Impression: Edema, History of hypertension Instructions: ED Lymphedema Prescriptions: No Action metronidazole 0.75 % cream 1 applic TOPICAL BID acetaminophen 500 MG tablet 500 mg PO PRN PRN (Reason: Pain) tamsulosin 0.4 MG capsule 0.4 mg PO DAILY Label Comments: TAKE ONE CAPSULE BY MOUTH EVERY DAY hydrochlorothiazide 12.5 MG capsule 12.5 mg PO DAILY Label Comments: finasteride 5 MG tablet 5 mg PO DAILY Label Comments: TAKE 1 TABLET BY MOUTH EVERY DAY doxycycline hyclate 20 mg tablet 20 mg PO BID Label Comments: Rx Instructions: takes at noon on Mon-Wed-Tue trazodone 50 mg tablet 50 mg PO QHS melatonin 3 mg Tablet 5 mg PO QHS aspirin [Rika Low Dose Aspirin] 81 mg Tablet,Delayed Release (Dr/Ec) 81 mg PO DAILY Lactobacillus acidophilus Capsule 10 mg PO DAILY calcium carbonate-vitamin D3 600 mg(1,500mg) -500 unit Tablet Extended Release 24 Hr 1 tab PO LUNCH multivitamin Tablet 1 tab PO DAILY atorvastatin 10 mg tablet 1 tab PO QHS Label Comments: TAKE 1 TABLET BY MOUTH DAILY AT BEDTIME. FOR CHOLESTEROL furosemide [Lasix] 40 mg tablet 20 mg PO DAILY pantoprazole 40 mg Tablet,Delayed Release (Dr/Ec) 40 mg PO DAILY quinapril [Accupril] 5 mg Tablet 5 mg PO DAILY docusate sodium 250 mg Capsule 250 mg PO BID nitrofurantoin 25 mg/5 mL suspension 100 mg PO BID 7 Days Qty: 280 0RF Rx Instructions: must administer with a meal/food Primary Care Provider: Francisco Bahena Referrals: Francisco Bahena MD [Primary Care Provider] - 3-5 Days Activity Restrictions/Additional Instructions: Take 40 mg of Lasix at home for the next 5 days and then follow-up with your doctor. Disposition Disposition: Home, Self Care
[2022-11-08 16:01] LABS: Absolute Neutrophil Count 1.8 X10^3/uL (2.0-7.7); Basophil# 0.03 X10^3/uL; Basophil% 0.8 % (0-1); Eosinophils% 2.8 % (0-5); Hematocrit 38.8 % (40-54); Hemoglobin 12.1 g/dL (13.0-16.5); Lymphocyte % 36.5 % (19-41); Mean Corp Hgb Conc 31.2 g/dL (32-36); Mean Corpuscular Hgb 29.9 pg (27.0-32.0); Mean Corpuscular Volume 95.8 fL (80-94); Mean Platelet Vol. 9.3 fl (6.2-12.0); Monocyte# 0.33 X10^3/uL; Monocyte% 9.3 % (0-10); NRBC Flagged by Analyzer 0 % (0-5); Neutrophil # 1.79 X10^3/uL (2.7-7.7); Neutrophil % 50.3 % (47-70); Platelet Count 170 K/mm3 (150-450); RBC Distribution Width CV 13.8 % (11.6-14.6); RBC Distribution Width SD 49.2 fl (35.1-43.9); Red Blood Count 4.05 M/mm3 (4.6-6.2); White Blood Count 3.6 K/mm3 (4.4-11.0)
[2022-11-08 16:16] LABS: BNP,B-Type NATRIURETIC PEPTIDE 69.4 pg/mL (0-100)
[2022-11-08 16:17] LABS: ALB/GLOB Ratio 1.3 RATIO (0.9-2.4); AST(SGOT) 18 U/L (15-37); Alanine Aminotransfer ALT/SGPT 24 U/L (16-61); Albumin, Serum 3.8 g/dL (3.2-5.0); Alkaline Phosphatase 51 U/L (45-117); Anion Gap 5 (5-15); BUN 23 mg/dL (7-18); BUN/Creat Ratio 23.8 RATIO (10-20); Calcium,Total 8.9 mg/dL (8.5-10.1); Chloride 106 mmol/L (98-107); Creatinine, Serum 0.97 mg/dL (0.70-1.30); EST Glomerular Filtration Rate 79 mL/min (>60); Est Glom Filt Rate - Afr Amer 96 mL/min (>60); Estimated Creatinine Clearance 62.71 ml/min; Globulin 2.9 g/dL (2.2-4.2); Glucose 104 mg/dL (74-106); Potassium 4.1 mmol/L (3.5-5.1); Protein, Total 6.7 g/dL (6.4-8.2); Sodium Level 141 mmol/L (136-145)
[2022-11-08] MEDS: Furosemide 40 MG/4 ML Vial IV (16:29)
== END 2022-11-08 16:41 | disposition home or self-care (01) ==
PROVIDERS: Emergency Provider Emergency Medicine; PCP Family Medicine; Visit Provider Emergency Medicine
DX: R60.9 Edema, unspecified (principal); I10 Essential (primary) hypertension; N40.0 Benign prostatic hyperplasia without lower urinary tract symptoms; Z79.82 Long term (current) use of aspirin; Z79.899 Other long term (current) drug therapy
CPT/HCPCS: 80053; 83880; 85025; 96374; 99283; A4216; J1940

== ENCOUNTER 2023-01-02 13:59 | Emergency (ER) | payer MEDICARE, SELFPAY ==
[2023-01-02 14:00] VITALS: BP 120/65; PULSE 66; RESP 14; TEMP 36.8; O2SAT 100; BMI 24.5
--- NOTE | 2023-01-02 14:19 | EX.ED.DYSGE1 ---
HPI <PHYLLIS Mcgowan - Last Filed: 01/02/23 17:20> History of Present Illness Chief Complaint: Constipation Narrative Narrative: 82-year-old male presents with constipation x6 days. He is on a chronic bowel regimen of Dulcolax and normally has a daily bowel movement. He has chronic left lower quadrant pain since a left inguinal hernia repair in 2018 but it does seem a little worse over the last few days. He has normal p.o. intake and no nausea or vomiting. He is passing gas. [facility] <PHYLLIS Mcgowan - Last Filed: 01/02/23 17:20> [facility] Medical History Abdominal pain Arthritis BPH (benign prostatic hyperplasia) Groin pain History of back problems History of hiatal hernia History of kidney stones Hypertension Inguinal hernia bilateral, non-recurrent Left inguinal hernia Right inguinal hernia Home Medications acetaminophen 500 mg tablet 500 mg PO PRN PRN Pain 04/03/17 [History Last Taken Unknown] finasteride 5 mg tablet 5 mg PO DAILY 04/03/17 [History Last Taken Unknown] hydrochlorothiazide 12.5 mg capsule 12.5 mg PO DAILY 04/03/17 [History Last Taken 07/18/19 05:30 12.5 MG] tamsulosin 0.4 mg capsule 0.4 mg PO DAILY 04/03/17 [History Last Taken Unknown] doxycycline hyclate 20 mg tablet 20 mg PO BID 03/13/19 [History Last Taken Unknown] metronidazole 0.75 % topical cream 1 applic topical BID 07/16/19 [History Last Taken Unknown] Lactobacillus acidophilus 10 mg PO DAILY 01/28/21 [History Last Taken Unknown] aspirin 81 mg tablet,delayed release (Rika Low Dose Aspirin) 81 mg PO DAILY 01/28/21 [History Last Taken Unknown] calcium carb-vitamin D3 ER 600 mg (1,500 mg)-500 unit tablet,ER 24 hr 1 tab PO LUNCH 01/28/21 [History Last Taken Unknown] melatonin 3 mg tablet 5 mg PO QHS 01/28/21 [History Last Taken Unknown] trazodone 50 mg tablet 50 mg PO QHS 01/28/21 [History Last Taken Unknown] multivitamin 1 tab PO DAILY 05/18/21 [History Last Taken Unknown] atorvastatin 10 mg tablet 1 tab PO QHS 05/03/22 [History Last Taken Unknown] docusate sodium 250 mg capsule 250 mg PO BID 05/03/22 [History Last Taken Unknown] furosemide 40 mg tablet (Lasix) 20 mg PO PRN PRN Edema 05/03/22 [History Last Taken Unknown] pantoprazole 40 mg tablet,delayed release 40 mg PO DAILY 05/03/22 [History Last Taken Unknown] quinapril 5 mg tablet (Accupril) 5 mg PO DAILY 05/03/22 [History Last Taken Unknown] nitrofurantoin monohydrate/macrocrystals 100 mg capsule (Macrobid) 100 mg PO Q12H 5 days #10 caps 01/02/23 [Rx Last Taken Unknown] polyethylene glycol 3350 17 gram/dose oral powder (Miralax) 17 g PO DAILY #119 grams 01/02/23 [Rx Last Taken Unknown] Allergy/AdvReac Type Severity Reaction Status Date / Time Iodinated Contrast Media Allergy Hives Verified 01/02/23 14:00 [CONTRASTS] azelaic acid [From Finacea] AdvReac Rash Verified 01/02/23 14:00 cephalexin [From Keflex] AdvReac Rash Verified 01/02/23 14:00 ciprofloxacin [From Cipro] AdvReac Nausea Verified 01/02/23 14:00 doxazosin [From Cardura] AdvReac Nausea Verified 01/02/23 14:00 gabapentin AdvReac Other Verified 01/02/23 14:00 ketoconazole AdvReac Diarrhea Verified 01/02/23 14:00 levofloxacin AdvReac Rash Verified 01/02/23 14:00 meloxicam [From Mobic] AdvReac Nausea Verified 01/02/23 14:00 misoprostol [From Cytotec] AdvReac Nausea Verified 01/02/23 14:00 nabumetone [From Relafen] AdvReac Nausea Verified 01/02/23 14:00 NSAIDS (Non-Steroidal AdvReac Nausea Verified 01/02/23 14:00 Anti-Inflamma sulfamethoxazole AdvReac Nausea Verified 01/02/23 14:00 [From Bactrim] terbinafine AdvReac Nausea Verified 01/02/23 14:00 trimethoprim [From Bactrim] AdvReac Nausea Verified 01/02/23 14:00 valdecoxib [From Bextra] AdvReac Other Verified 01/02/23 14:00 Family History Father Colon cancer Mother Cancer lung Hypertension Brother Cancer Surgical History history exacorporeal shock wave lithrotripsy history lap hiatal hernia repair History of bilateral cataract extraction History of colonoscopy (~02/2019) History of hemorrhoidectomy History of laparoscopic cholecystectomy History of left inguinal hernia repair (~07/18/19) History of right inguinal hernia repair history repair left thumb history ureteral stent insertion Hx of repair of left rotator cuff Hx of repair of right rotator cuff Social History household members: spouse Smoking Status: Never smoker alcohol intake: current alcohol intake frequency: a few times a month substance use type: does not use ROS <PHYLLIS Mcgowan - Last Filed: 01/02/23 17:20> ROS ED ROS Narrative Constitutional: Negative for fever, chills, malaise. CVS: Negative for chest pain. Respiratory: Negative for shortness of breath. GI: Positive for abdominal pain, constipation. : Negative for dysuria. EXAM <PHYLLIS Mcgowan - Last Filed: 01/02/23 17:20> Physical Exam Narrative Exam Narrative: CONST: Patient sitting in no acute distress. EYES: Normal inspection. ENT: Normal inspection, moist mucous membranes. NECK: Normal inspection. RESP: No respiratory distress, CTAB. CVS: Regular rate and rhythm, no murmur, no gallop. ABD: Soft with slight left inguinal tenderness and no palpable hernia, no guarding or rebound, nondistended. Normal bowel sounds x4. Rectum: No stool in rectal vault. No masses or tenderness. SKIN: Color normal, no rash, warm, dry, intact. EXTREMITIES: Normal appearance, no pedal edema. NEURO: Oriented x4. PSYCH: Normal affect. Const Vital Signs: 01/02/23 14:00 01/02/23 16:54 Temperature 98.3 F Temperature Source Temporal Pulse Rate 66 62 Respiratory Rate 14 16 Blood Pressure 120/65 118/63 Blood Pressure Mean 83 81 Pulse Ox 100 100 Oxygen Delivery Method Room Air Room Air <Dr. Marlo Echevarria DO - Last Filed: 01/02/23 16:18> Physical Exam Const Vital Signs: 01/02/23 14:00 01/02/23 16:54 Temperature 98.3 F Temperature Source Temporal Pulse Rate 66 62 Respiratory Rate 14 16 Blood Pressure 120/65 118/63 Blood Pressure Mean 83 81 Pulse Ox 100 100 Oxygen Delivery Method Room Air Room Air [facility] <PHYLLIS Mcgowan - Last Filed: 01/02/23 17:20> [facility] Narrative Medical decision making narrative: History gathered from: Patient and Patient having 6 days of constipation. Having slight increase in his chronic left lower quadrant abdominal pain over area of prior hernia repair. No vomiting and normal p.o. intake. He appears well and nontoxic with normal vital signs. He is slight left lower quadrant tenderness but no guarding or rebound. No distention. Normal bowel pumps. Rectal vault is empty. CBC shows normal white count 4.4, hemoglobin 11.3 around baseline. BMP is within normal limits. CT shows increased stool but no obstruction. Patient also complained of urinary frequency and UA is positive for UTI. He states he has history of recurrent infections but has not recently been on antibiotics. He follows with a urologist and is scheduled for a TURP in the next couple weeks. He has an extensive antibiotic allergy list will be prescribed Macrobid. Also prescribed MiraLAX that he should take in addition to his home docusate for constipation. We discussed return precautions and he was discharged in stable condition. Differential: Constipation, bowel obstruction, diverticulitis I have personally performed a face to face assessment of the patient and have reviewed the LUIS Note. I performed a substantive portion of the visit including all aspects of the following. My douglas findings include: History is [constipation x6 days. Patient normally takes stool softeners daily. He denies change in his diet. He denies any new medications. He started experiencing increased discomfort in his left lower quadrant. He denies blood in the stool. He does have urinary frequency and is scheduled to have a TURP next month. Patient denies fever. He denies vomiting.] Patient normally has bowel movements daily. Exam is [HEENT-PERRLA, EOMI. Cranial nerves II through XII grossly intact. TMs clear. Mucous membranes moist. No adenopathy. Cardiovascular-regular rate and rhythm without murmur or ectopy Lungs-clear to auscultation, chest wall stable without crepitus or subcu emphysema Abdomen-normoactive bowel sounds, soft, nontender, no rebound or rigidity, no peritoneal signs. Extremities-intact ?4, normal range of motion, normal pulses, atraumatic] Medical Decison Making [patient seen in conjunction with physician blood donor unit assistant. Physician blood donor unit assistant did perform rectal exam and there was no evidence of impaction.] Patient CBC with differential was unremarkable. Chemistries unremarkable. Urine showed 500 leukocyte esterase with 25-50 WBCs and +1 bacteria. A culture will be sent. We will give patient Rocephin [address] scan abdomen pelvis pending. Case discussed with evening physician and case will be turned over to her awaiting CT results and final disposition. Other additions or changes: [None] Lab Data Labs: Laboratory Results - last 24 hr 01/02/23 01/02/23 01/02/23 14:40 14:40 15:23 WBC 4.4 RBC 3.69 L Hgb 11.3 L Hct 35.3 L MCV 95.7 H MCH 30.6 MCHC 32.0 RDW Std Deviation 46.0 H RDW Coeff of Ezequiel 13.2 Plt Count 154 MPV 9.5 Immature Gran % (Auto) 0.200 Neut % (Auto) 42.7 L Lymph % (Auto) 43.0 H [place] % (Auto) 11.1 H Eos % (Auto) 2.3 Baso % (Auto) 0.7 Absolute Neuts (auto) 1.9 L Absolute Lymphs (auto) 1.90 Nucleated RBC % 0 Sodium 139 Potassium 3.9 Chloride 104 Carbon Dioxide 30.0 Anion Gap 5 BUN 18 Creatinine 0.91 Estim Creat Clear Calc 66.85 Est GFR (MDRD) Af Amer 103 Est GFR (MDRD) Non-Af 85 BUN/Creatinine Ratio 19.7 Glucose 93 Calcium 9.0 Urine Color Yellow Urine Clarity Sl. Cloudy Urine pH 6.5 Ur Specific [place] 1.010 Urine Protein Negative Urine Glucose (UA) Normal Urine Ketones Negative Urine Occult Blood 10 H Urine Nitrite Negative Urine Bilirubin Negative Urine Urobilinogen Normal Ur Leukocyte Esterase 500 H Urine RBC 0-5 SEEN Urine WBC 25-50 SEEN Ur Squamous Epith Cells 0-5 SEEN Amorphous Sediment 1+ URATE Urine Bacteria 1+ Urine Mucus 0 SEEN Radiography Diagnostic Testing: Clinical Impression(s) from Imaging Studies Abdomen CT 01/02/23 14:47 IMPRESSION: Nonobstructing nephroliths on the left. UTI versus recent bladder catheterization. Increased stool. Moderate scoliosis and lumbar fusion. Electronically Signed: Ángel Chris MD at 17:02 EDT , <Dr. Marlo Echevarria, DO - Last Filed: 01/02/23 16:18> [facility] Narrative Medical decision making narrative: I have personally performed a face to face assessment of the patient and have reviewed the LUIS Note. I performed a substantive portion of the visit including all aspects of the following. My douglas findings include: History is [constipation x6 days. Patient normally takes stool softeners daily. He denies change in his diet. He denies any new medications. He started experiencing increased discomfort in his left lower quadrant. He denies blood in the stool. He does have urinary frequency and is scheduled to have a TURP next month. Patient denies fever. He denies vomiting.] Patient normally has bowel movements daily. Exam is [HEENT-PERRLA, EOMI. Cranial nerves II through XII grossly intact. TMs clear. Mucous membranes moist. No adenopathy. Cardiovascular-regular rate and rhythm without murmur or ectopy Lungs-clear to auscultation, chest wall stable without crepitus or subcu emphysema Abdomen-normoactive bowel sounds, soft, nontender, no rebound or rigidity, no peritoneal signs. Extremities-intact ?4, normal range of motion, normal pulses, atraumatic] Medical Decison Making [patient seen in conjunction with physician blood donor unit assistant. Physician blood donor unit assistant did perform rectal exam and there was no evidence of impaction.] Patient CBC with differential was unremarkable. Chemistries unremarkable. Urine showed 500 leukocyte esterase with 25-50 WBCs and +1 bacteria. A culture will be sent. We will give patient Rocephin [address] scan abdomen pelvis pending. Case discussed with evening physician and case will be turned over to her awaiting CT results and final disposition. Other additions or changes: [None] Lab Data Labs: Laboratory Results - last 24 hr 01/02/23 01/02/23 01/02/23 14:40 14:40 15:23 WBC 4.4 RBC 3.69 L Hgb 11.3 L Hct 35.3 L MCV 95.7 H MCH 30.6 MCHC 32.0 RDW Std Deviation 46.0 H RDW Coeff of Ezequiel 13.2 Plt Count 154 MPV 9.5 Immature Gran % (Auto) 0.200 Neut % (Auto) 42.7 L Lymph % (Auto) 43.0 H [place] % (Auto) 11.1 H Eos % (Auto) 2.3 Baso % (Auto) 0.7 Absolute Neuts (auto) 1.9 L Absolute Lymphs (auto) 1.90 Nucleated RBC % 0 Sodium 139 Potassium 3.9 Chloride 104 Carbon Dioxide 30.0 Anion Gap 5 BUN 18 Creatinine 0.91 Estim Creat Clear Calc 66.85 Est GFR (MDRD) Af Amer 103 Est GFR (MDRD) Non-Af 85 BUN/Creatinine Ratio 19.7 Glucose 93 Calcium 9.0 Urine Color Yellow Urine Clarity Sl. Cloudy Urine pH 6.5 Ur Specific [place] 1.010 Urine Protein Negative Urine Glucose (UA) Normal Urine Ketones Negative Urine Occult Blood 10 H Urine Nitrite Negative Urine Bilirubin Negative Urine Urobilinogen Normal Ur Leukocyte Esterase 500 H Urine RBC 0-5 SEEN Urine WBC 25-50 SEEN Ur Squamous Epith Cells 0-5 SEEN Amorphous Sediment 1+ URATE Urine Bacteria 1+ Urine Mucus 0 SEEN Radiography Diagnostic Testing: Clinical Impression(s) from Imaging Studies Abdomen CT 01/02/23 14:47 IMPRESSION: Nonobstructing nephroliths on the left. UTI versus recent bladder catheterization. Increased stool. Moderate scoliosis and lumbar fusion. Electronically Signed: Ángel Chris MD at 17:02 EDT , Discharge Plan Triage Chief Complaint: Constipation ED Midlevel Provider: Valeria Odom ED Provider: Marlo Echevarria Dx/Rx/DC Orders Clinical Impression: Abdominal pain, Constipation, Acute UTI Instructions: ED Constipation (Adult), ED Bladder Infection, Male (Adult) Prescriptions: New nitrofurantoin monohyd/m-cryst [Macrobid] 100 mg capsule 100 mg PO Q12H 5 Days Qty: 10 0RF Rx Instructions: must administer with a meal/food polyethylene glycol 3350 [Miralax] 17 gram/dose powder 17 g PO DAILY Qty: 119 0RF Rx Instructions: take 1 cap twice per day until regular BMs, then once daily No Action metronidazole 0.75 % cream 1 applic TOPICAL BID acetaminophen 500 MG tablet 500 mg PO PRN PRN (Reason: Pain) tamsulosin 0.4 MG capsule 0.4 mg PO DAILY Label Comments: TAKE ONE CAPSULE BY MOUTH EVERY DAY hydrochlorothiazide 12.5 MG capsule 12.5 mg PO DAILY Label Comments: finasteride 5 MG tablet 5 mg PO DAILY Label Comments: TAKE 1 TABLET BY MOUTH EVERY DAY doxycycline hyclate 20 mg tablet 20 mg PO BID Label Comments: Rx Instructions: takes at noon on Mon-Tue-Tue trazodone 50 mg tablet 50 mg PO QHS melatonin 3 mg Tablet 5 mg PO QHS aspirin [Rika Low Dose Aspirin] 81 mg Tablet,Delayed Release (Dr/Ec) 81 mg PO DAILY Lactobacillus acidophilus Capsule 10 mg PO DAILY calcium carbonate-vitamin D3 600 mg(1,500mg) -500 unit Tablet Extended Release 24 Hr 1 tab PO LUNCH multivitamin Tablet 1 tab PO DAILY atorvastatin 10 mg tablet 1 tab PO QHS Label Comments: TAKE 1 TABLET BY MOUTH DAILY AT BEDTIME. FOR CHOLESTEROL furosemide [Lasix] 40 mg tablet 20 mg PO PRN PRN (Reason: Edema) pantoprazole 40 mg Tablet,Delayed Release (Dr/Ec) 40 mg PO DAILY quinapril [Accupril] 5 mg Tablet 5 mg PO DAILY docusate sodium 250 mg Capsule 250 mg PO BID Primary Care Provider: Francisco Bahena Referrals: Francisco Bahena MD [Primary Care Provider] - Activity Restrictions/Additional Instructions: I prescribed MiraLAX for constipation. You take 2 caps per day until you are in regular bowel movements then go down to 1 cap daily. If your stool becomes too loose you can stop taking it. Continue taking her docusate every day as well. If symptoms worsen and you develop vomiting or increased abdominal pain or not having bowel movements despite medication use come back to the ER. Also of a urinary tract infection so I prescribed antibiotics. Follow-up with your primary care or urologist this week.
[2023-01-02] MEDS: DiphenhydrAMINE 50 MG/ML Syringe 25 MG IV (14:37)
--- NOTE | 2023-01-02 14:47 | CT_ITS ---
STUDY: CT ABDOMEN AND PELVIS WITHOUT CONTRAST REASON FOR EXAM: Male, 82 years old. llq abdominal pain RADIATION DOSAGE (If Supplied By Facility): CTDIvol = ( 6.96 ) mGy, DLP = ( 332.85 ) mGycm TECHNIQUE: Transaxial images were obtained from the dome of the diaphragm to the symphysis pubis without oral contrast, and without intravenous contrast. Sagittal and coronal images were reconstructed. Individualized dose optimization techniques were used for this CT. COMPARISON: CT abdomen and pelvis August 16, 2022 FINDINGS: The visualized lung bases are unremarkable. Calcific coronary artery disease. Normal liver. Dilated intrahepatic and extrahepatic bile ducts. Normal spleen. Normal pancreas. Normal bilateral adrenal glands. Normal right kidney. Small nonobstructing nephroliths left kidney. Small hiatal hernia. Oral contrast in the small bowel. Increased stool in the colon. Colonic diverticulosis. Appendix is not well visualized. Calcified plaque along the aorta and its branches. Normal inferior vena cava. Normal retroperitoneum. Gas is noted within the bladder consistent with infection versus recent catheterization. Normal abdominal wall. Area of moderate dextroconvex scoliosis. Posterior fusion hardware L3-S1. CT/Abdomen/Pel W ORAL Cont Only IMPRESSION: Nonobstructing nephroliths on the left. UTI versus recent bladder catheterization. Increased stool. Moderate scoliosis and lumbar fusion. Electronically Signed: Ángel Chris MD at 17:02 EDT ,
[2023-01-02 14:48] LABS: Absolute Neutrophil Count 1.9 X10^3/uL (2.0-7.7); Basophil# 0.03 X10^3/uL; Basophil% 0.7 % (0-1); Eosinophils% 2.3 % (0-5); Hematocrit 35.3 % (40-54); Hemoglobin 11.3 g/dL (13.0-16.5); Mean Corpuscular Hgb 30.6 pg (27.0-32.0); Mean Corpuscular Volume 95.7 fL (80-94); Mean Platelet Vol. 9.5 fl (6.2-12.0); Monocyte# 0.49 X10^3/uL; Monocyte% 11.1 % (0-10); NRBC Flagged by Analyzer 0 % (0-5); Neutrophil # 1.89 X10^3/uL (2.7-7.7); Neutrophil % 42.7 % (47-70); Platelet Count 154 K/mm3 (150-450); RBC Distribution Width CV 13.2 % (11.6-14.6); Red Blood Count 3.69 M/mm3 (4.6-6.2); White Blood Count 4.4 K/mm3 (4.4-11.0)
[2023-01-02 15:01] LABS: Anion Gap 5 (5-15); BUN 18 mg/dL (7-18); BUN/Creat Ratio 19.7 RATIO (10-20); Chloride 104 mmol/L (98-107); Creatinine, Serum 0.91 mg/dL (0.70-1.30); EST Glomerular Filtration Rate 85 mL/min (>60); Est Glom Filt Rate - Afr Amer 103 mL/min (>60); Estimated Creatinine Clearance 66.85 ml/min; Glucose 93 mg/dL (74-106); Potassium 3.9 mmol/L (3.5-5.1); Sodium Level 139 mmol/L (136-145)
[2023-01-02 15:28] LABS: Mucous, Urine 0 SEEN /hpf (<or=2+)
[2023-01-02 15:31] LABS: Color, Urine Yellow (Yellow); Glucose, Dipstick Normal (Normal); Ketone-Dipstick Negative (Negative); Leukocyte Esterase-Dipstick 500 /ul (Negative); Nitrite-Dipstick Negative (Negative); Occult Blood-Urine 10 /ul (Negative); Protein-Dipstick Negative (Negative); Urine Bilirubin Dipstick Negative (Negative); Urine Clarity Sl. Cloudy (Clear); Urine Urobilinogen Normal (Normal); Urine pH 6.5 (5.0 - 8.0)
[2023-01-02 15:58] LABS: White Blood Cells 25-50 SEEN /hpf (0-5)
[2023-01-02 15:59] LABS: Amorphous Sediment 1+ URATE; Bacteria 1+ /hpf (None Seen); Red Blood Cells-Urine 0-5 SEEN /hpf (0-5); Squamous Epithelial Cells - UA 0-5 SEEN /hpf (0-5)
[2023-01-02 16:54] VITALS: BP 118/63; PULSE 62; RESP 16; O2SAT 100
[2023-01-02] MEDS: Polyethylene Glycol 3350 17 GM PACKET PO (17:38)
[2023-01-02] MEDS: Nitrofurantoin Macrocrystals 100 MG Capsule PO (17:38)
== END 2023-01-02 17:48 | disposition home or self-care (01) ==
PROVIDERS: Physician Assistant; Emergency Provider Emergency Medicine; PCP Family Medicine; Referring Provider Family Medicine; Visit Provider Emergency Medicine
DX: R10.32 Left lower quadrant pain (principal); K59.00 Constipation, unspecified; N39.0 Urinary tract infection, site not specified; I10 Essential (primary) hypertension; Z79.82 Long term (current) use of aspirin; Z79.899 Other long term (current) drug therapy
CPT/HCPCS: 74176; 80048; 81001; 85025; 87077; 87086; 87088; 87186; 96374; 99284; A4216

== ENCOUNTER 2023-09-10 18:49 | Emergency (ER) | payer MEDICARE, SELFPAY ==
[2023-09-10 18:50] VITALS: BP 137/73; PULSE 93; RESP 15; TEMP 37.1; O2SAT 100
[2023-09-10 20:18] LABS: Absolute Neutrophil Count 2.5 X10^3/uL (2.0-7.7); Basophil# 0.03 X10^3/uL; Basophil% 0.6 % (0-1); Eosinophil# 0.07 X10^3/uL; Eosinophils% 1.5 % (0-5); Hematocrit 38.2 % (40-54); Hemoglobin 12.5 g/dL (13.0-16.5); Mean Corp Hgb Conc 32.7 g/dL (32-36); Mean Corpuscular Hgb 31.5 pg (27.0-32.0); Mean Corpuscular Volume 96.2 fL (80-94); Mean Platelet Vol. 9.2 fl (6.2-12.0); Monocyte% 8.5 % (0-10); NRBC Flagged by Analyzer 0 % (0-5); Neutrophil # 2.52 X10^3/uL (2.7-7.7); Neutrophil % 53.4 % (47-70); Platelet Count 151 K/mm3 (150-450); RBC Distribution Width SD 46.5 fl (35.1-43.9); Red Blood Count 3.97 M/mm3 (4.6-6.2); White Blood Count 4.7 K/mm3 (4.4-11.0)
[2023-09-10] MEDS: 0.9% Normal Saline (1000mL) 1,000 ML 1000 ML IV (20:24)
[2023-09-10 20:29] LABS: ALB/GLOB Ratio 1.3 RATIO (0.9-2.4); AST(SGOT) 10 U/L (15-37); Alanine Aminotransfer ALT/SGPT 20 U/L (16-61); Albumin, Serum 3.9 g/dL (3.2-5.0); Alkaline Phosphatase 59 U/L (45-117); Anion Gap 3 (5-15); BUN 30 mg/dL (7-18); BUN/Creat Ratio 28.6 RATIO (10-20); Calcium,Total 9.4 mg/dL (8.5-10.1); Chloride 106 mmol/L (98-107); Creatinine, Serum 1.05 mg/dL (0.70-1.30); EST Glomerular Filtration Rate 72 mL/min (>60); Est Glom Filt Rate - Afr Amer 87 mL/min (>60); Globulin 2.9 g/dL (2.2-4.2); Glucose 108 mg/dL (74-106); Lipase 17 U/L (13-75); Potassium 4.2 mmol/L (3.5-5.1); Protein, Total 6.8 g/dL (6.4-8.2); Sodium Level 139 mmol/L (136-145)
--- NOTE | 2023-09-10 20:34 | EDS_ITS ---
HPI HPI - GI History of Present Illness Chief Complaint: Abd Pain Narrative Narrative: 82-year-old male presenting with abdominal pain. He states his left lower quadrant. [facility] Medical History Abdominal pain Arthritis BPH (benign prostatic hyperplasia) Groin pain History of back problems History of hiatal hernia History of kidney stones Hypertension Inguinal hernia bilateral, non-recurrent Left inguinal hernia Right inguinal hernia Home Medications acetaminophen 500 mg tablet 500 mg PO PRN PRN Pain 04/03/17 [History Last Taken Unknown] finasteride 5 mg tablet 5 mg PO DAILY 04/03/17 [History Last Taken Unknown] hydrochlorothiazide 12.5 mg capsule 12.5 mg PO DAILY 04/03/17 [History Last Taken 07/18/19 05:30 12.5 MG] tamsulosin 0.4 mg capsule 0.4 mg PO DAILY 04/03/17 [History Last Taken Unknown] doxycycline hyclate 20 mg tablet 20 mg PO BID 03/13/19 [History Last Taken Unknown] metronidazole 0.75 % topical cream 1 applic topical BID 07/16/19 [History Last Taken Unknown] Lactobacillus acidophilus 10 mg PO DAILY 01/28/21 [History Last Taken Unknown] aspirin 81 mg tablet,delayed release (Rika Low Dose Aspirin) 81 mg PO DAILY 01/28/21 [History Last Taken Unknown] calcium carb-vitamin D3 ER 600 mg (1,500 mg)-500 unit tablet,ER 24 hr 1 tab PO LUNCH 01/28/21 [History Last Taken Unknown] melatonin 3 mg tablet 5 mg PO QHS 01/28/21 [History Last Taken Unknown] trazodone 50 mg tablet 50 mg PO QHS 01/28/21 [History Last Taken Unknown] multivitamin 1 tab PO DAILY 05/18/21 [History Last Taken Unknown] atorvastatin 10 mg tablet 1 tab PO QHS 05/03/22 [History Last Taken Unknown] docusate sodium 250 mg capsule 250 mg PO BID 05/03/22 [History Last Taken Unknown] furosemide 40 mg tablet (Lasix) 20 mg PO PRN PRN Edema 05/03/22 [History Last Taken Unknown] pantoprazole 40 mg tablet,delayed release 40 mg PO DAILY 05/03/22 [History Last Taken Unknown] quinapril 5 mg tablet (Accupril) 5 mg PO DAILY 05/03/22 [History Last Taken Unknown] nitrofurantoin monohydrate/macrocrystals 100 mg capsule (Macrobid) 100 mg PO Q12H 5 days #10 caps 01/02/23 [Rx Last Taken Unknown] polyethylene glycol 3350 17 gram/dose oral powder (Miralax) 17 g PO DAILY #119 grams 01/02/23 [Rx Last Taken Unknown] Allergy/AdvReac Type Severity Reaction Status Date / Time Iodinated Contrast Media Allergy Hives Verified 09/10/23 18:57 [CONTRASTS] azelaic acid [From Finacea] AdvReac Rash Verified 09/10/23 18:57 levofloxacin AdvReac Rash Verified 09/10/23 18:57 meloxicam [From Mobic] AdvReac Nausea Verified 09/10/23 18:57 misoprostol [From Cytotec] AdvReac Nausea Verified 09/10/23 18:57 nabumetone [From Relafen] AdvReac Nausea Verified 09/10/23 18:57 NSAIDS (Non-Steroidal AdvReac Nausea Verified 09/10/23 18:57 Anti-Inflamma sulfamethoxazole AdvReac Nausea Verified 09/10/23 18:57 [From Bactrim] terbinafine AdvReac Nausea Verified 09/10/23 18:57 trimethoprim [From Bactrim] AdvReac Nausea Verified 09/10/23 18:57 valdecoxib [From Bextra] AdvReac Other Verified 09/10/23 18:57 Family History Father Colon cancer Mother Cancer lung Hypertension Brother Cancer Surgical History history exacorporeal shock wave lithrotripsy history lap hiatal hernia repair History of bilateral cataract extraction History of colonoscopy (~02/2019) History of hemorrhoidectomy History of laparoscopic cholecystectomy History of left inguinal hernia repair (~07/18/19) History of right inguinal hernia repair history repair left thumb history ureteral stent insertion Hx of repair of left rotator cuff Hx of repair of right rotator cuff Social History household members: spouse Smoking Status: Never smoker alcohol intake: current alcohol intake frequency: a few times a month substance use type: does not use EXAM Physical Exam Const Vital Signs: 09/10/23 18:50 09/10/23 23:51 Temperature 98.8 F Temperature Source Temporal Pulse Rate 93 69 Respiratory Rate 15 15 Blood Pressure 137/73 H 133/63 H Blood Pressure Mean 94 86 Pulse Ox 100 97 Oxygen Delivery Method Room Air Room Air MDM MDM MDM Narrative Medical decision making narrative: Patient presenting with left lower quadrant abdominal pain. This has been an ongoing thing. He had some constipation which is chronic. He also history of UTI and kidney stones. He is also had a septic stone. Patient presenting with right flank pain. Differential includes colitis, diverticulitis, gastritis, pancreatitis, constipation, UTI, pyelonephritis, renal calculi, ureteral calculi, bowel obstruction, malignancy, dehydration, electrolyte abnormalities. CBC was obtained to assess white blood cell count, hemoglobin, platelets. CMP to assess liver function, renal function, electrolytes. Lipase to assess for pancreatitis. Urinalysis to assess for UTI. CBC shows no leukocytosis with a white blood cell count of 4.7. Hemoglobin 12.5. Platelets are 151. Creatinine 1.05. Electrolytes were unremarkable. LFTs are normal. Lipase within normal limits. Urinalysis consistent with UTI. Exam is not consistent with pyelonephritis. Patient does have history of kidney stones and septic stone so we did obtain a CT of the abdomen pelvis without contrast which shows no obstructing stones. This does show some constipation as well as old T11-T12 compression deformities. Discussed findings with patient and his . He was given Rocephin here in the ED. He will be given a prescription for Keflex and they want it sent to their pharmacy. Patient counseled that he should take stool softeners and laxatives at home as well. He will follow-up with urology and his PCP. Impression: 1. UTI 2. Abdominal pain 3. Constipation Lab Data Attestation: I reviewed the patient's lab results. Labs: Laboratory Results - last 24 hr 09/10/23 09/10/23 20:05 22:17 WBC 4.7 RBC 3.97 L Hgb 12.5 L Hct 38.2 L MCV 96.2 H MCH 31.5 MCHC 32.7 RDW Std Deviation 46.5 H RDW Coeff of Ezequiel 13.0 Plt Count 151 MPV 9.2 Immature Gran % (Auto) 0.000 Neut % (Auto) 53.4 Lymph % (Auto) 36.0 [place] % (Auto) 8.5 Eos % (Auto) 1.5 Baso % (Auto) 0.6 Absolute Neuts (auto) 2.5 Absolute Lymphs (auto) 1.70 Nucleated RBC % 0 Sodium 139 Potassium 4.2 Chloride 106 Carbon Dioxide 30.0 Anion Gap 3 L BUN 30 H Creatinine 1.05 Est GFR (MDRD) Af Amer 87 Est GFR (MDRD) Non-Af 72 BUN/Creatinine Ratio 28.6 H Glucose 108 H Calcium 9.4 Total Bilirubin 0.50 AST 10 L ALT 20 Alkaline Phosphatase 59 Total Protein 6.8 Albumin 3.9 Globulin 2.9 Albumin/Globulin Ratio 1.3 Lipase 17 Urine Color Yellow Urine Clarity Sl. Cloudy Urine pH 6.0 Ur Specific [place] 1.020 Urine Protein 15 H Urine Glucose (UA) Normal Urine Ketones 5 H Urine Occult Blood 10 H Urine Nitrite Positive H Urine Bilirubin Negative Urine Urobilinogen Normal Ur Leukocyte Esterase 500 H Urine RBC 0-5 SEEN Urine WBC 25-50 SEEN Ur Squamous Epith Cells 0-5 SEEN Urine Bacteria 2+ Urine Mucus 0 SEEN Radiography Diagnostic Testing: Clinical Impression(s) from Imaging Studies Abdomen/Pelvis CT 09/10/23 22:45 IMPRESSION: Nonobstructing nephroliths on the left measuring up to 3 x 5 mm. Increased stool. Moderate scoliosis and posterior interbody fusion L3-S1. Mild remote compression fractures T11-T12. Electronically Signed: Ángel Chris MD at 23:45 EST Reading Location ID and State: [address] [place] [address] Tel , Service support , Discharge Plan Triage Chief Complaint: Abd Pain ED Provider: Geovani Dave Dx/Rx/DC Orders Prescriptions: No Action metronidazole 0.75 % cream 1 applic TOPICAL BID acetaminophen 500 MG tablet 500 mg PO PRN PRN (Reason: Pain) tamsulosin 0.4 MG capsule 0.4 mg PO DAILY Patient Comments: TAKE ONE CAPSULE BY MOUTH EVERY DAY hydrochlorothiazide 12.5 MG capsule 12.5 mg PO DAILY Patient Comments: finasteride 5 MG tablet 5 mg PO DAILY Patient Comments: TAKE 1 TABLET BY MOUTH EVERY DAY doxycycline hyclate 20 mg tablet 20 mg PO BID Patient Comments: Rx Instructions: takes at noon on Mon-Wed-Fri trazodone 50 mg tablet 50 mg PO QHS melatonin 3 mg Tablet 5 mg PO QHS aspirin [Rika Low Dose Aspirin] 81 mg Tablet,Delayed Release (Dr/Ec) 81 mg PO DAILY Lactobacillus acidophilus Capsule 10 mg PO DAILY calcium carbonate-vitamin D3 600 mg(1,500mg) -500 unit Tablet Extended Release 24 Hr 1 tab PO LUNCH multivitamin Tablet 1 tab PO DAILY atorvastatin 10 mg tablet 1 tab PO QHS Patient Comments: TAKE 1 TABLET BY MOUTH DAILY AT BEDTIME. FOR CHOLESTEROL furosemide [Lasix] 40 mg tablet 20 mg PO PRN PRN (Reason: Edema) pantoprazole 40 mg Tablet,Delayed Release (Dr/Ec) 40 mg PO DAILY quinapril [Accupril] 5 mg Tablet 5 mg PO DAILY docusate sodium 250 mg Capsule 250 mg PO BID nitrofurantoin monohyd/m-cryst [Macrobid] 100 mg capsule 100 mg PO Q12H 5 Days Qty: 10 0RF Rx Instructions: must administer with a meal/food polyethylene glycol 3350 [Miralax] 17 gram/dose powder 17 g PO DAILY Qty: 119 0RF Rx Instructions: take 1 cap twice per day until regular BMs, then once daily Primary Care Provider: Francisco Bahena Referrals: Francisco Bahena MD [Primary Care Provider] -
[2023-09-10 22:24] LABS: Mucous, Urine 0 SEEN /hpf (<or=2+)
[2023-09-10 22:25] LABS: Color, Urine Yellow (Yellow); Glucose, Dipstick Normal (Normal); Ketone-Dipstick 5 mg/dl (Negative); Leukocyte Esterase-Dipstick 500 /ul (Negative); Nitrite-Dipstick Positive (Negative); Occult Blood-Urine 10 /ul (Negative); Protein-Dipstick 15 mg/dl (Negative); Urine Bilirubin Dipstick Negative (Negative); Urine Clarity Sl. Cloudy (Clear); Urine Urobilinogen Normal (Normal)
[2023-09-10 22:39] LABS: Bacteria 2+ /hpf (None Seen); Red Blood Cells-Urine 0-5 SEEN /hpf (0-5); Squamous Epithelial Cells - UA 0-5 SEEN /hpf (0-5); White Blood Cells 25-50 SEEN /hpf (0-5)
--- NOTE | 2023-09-10 22:45 | CT_ITS ---
STUDY: CT ABDOMEN AND PELVIS WITHOUT CONTRAST REASON FOR EXAM: Male, 82 years old. left flank pain RADIATION DOSAGE (If Supplied By Facility): CTDIvol = ( 6.51 ) mGy, DLP = ( 328.63 ) mGycm TECHNIQUE: Transaxial images were obtained from the dome of the diaphragm to the symphysis pubis without oral contrast, and without intravenous contrast. Sagittal and coronal images were reconstructed. Individualized dose optimization techniques were used for this CT. COMPARISON: January 02, 2023 CT abdomen and pelvis FINDINGS: The visualized lung bases are unremarkable. Calcific coronary artery disease. Normal liver. Gallbladder not identified. Dilated intra or extrahepatic bile ducts. Normal spleen. Normal pancreas. Normal bilateral adrenal glands. Normal right kidney. Nonobstructing nephroliths on the left measuring several millimeters. Normal visualized stomach. Dilated loop of small bowel. Colonic diverticulosis. Increased stool throughout the colon. The appendix is visualized and appears normal. Calcified plaque along the aorta and its branches. Normal inferior vena cava. Normal retroperitoneum. Normal urinary bladder. Normal abdominal wall. Moderate dextroconvex scoliosis. Posterior interbody fusion rods and pedicular screws and bone graft L3-S1. Slight anterior wedging T11-T12. Diffuse demineralization decreases sensitivity. CT/Abdomen/Pelvis without Cont IMPRESSION: Nonobstructing nephroliths on the left measuring up to 3 x 5 mm. Increased stool. Moderate scoliosis and posterior interbody fusion L3-S1. Mild remote compression fractures T11-T12. Electronically Signed: Ángel Chris MD at 23:45 EST ,
[2023-09-10] MEDS: Ceftriaxone 1 GM/50 ML BAG IV (23:15)
[2023-09-10 23:51] VITALS: BP 133/63; PULSE 69; RESP 15; O2SAT 97
[2023-09-11 00:21] VITALS: BP 133/63; PULSE 69; RESP 15; O2SAT 97
== END 2023-09-11 00:24 | disposition home or self-care (01) ==
PROVIDERS: Emergency Provider Student in an Organized Health Care Education/Training Program; PCP Family Medicine; Visit Provider Student in an Organized Health Care Education/Training Program
DX: N39.0 Urinary tract infection, site not specified (principal); R10.32 Left lower quadrant pain; K59.00 Constipation, unspecified
CPT/HCPCS: 74176; 80053; 81001; 83690; 85025; 87077; 87086; 87088; 87186; 96361; 96365; 99283; J7030; J7050; A4216

== ENCOUNTER 2023-09-24 19:24 | Inpatient (IN) | payer MEDICARE, SELFPAY ==
[2023-09-24 19:25] VITALS: BP 108/56; PULSE 87; RESP 18; TEMP 37.1; O2SAT 97; BMI 24.1
--- NOTE | 2023-09-24 19:48 | EDS_ITS ---
HPI <PHYLLIS Mcgowan - Last Filed: 09/24/23 20:59> History of Present Illness Chief Complaint: Other, Pain/Inj Narrative Narrative: 82-year-old male with past medical history of HTN, HLD, presents with chills and shaking that started this evening. He wanted to walk downstairs to rest in his recliner. He goes down the stairs backwards and about [facility] down and started to feel lightheaded and leaned himself forward to rest. He did not fall or hit his head. He did not pass out. His helped him back down the stairs and used his walker to go over to his recliner and then states he was more shaky all over. Family states it was not seizure activity. He was awake and alert while this was happening. He is being treated for UTI. About 2 weeks ago and left lower quadrant abdominal pain and states he always has urinary frequency and was seen here and diagnosed with a UTI and prescribed Keflex. states he took it for 10 days but still had the left lower quadrant discomfort so they checked her urine again at his primary care's office and prescribed Macrobid. He states his left inguinal pain is very mild 2/10. He has no dysuria or hematuria. No flank pain. No fever. No nausea or vomiting. No chest pain or shortness of breath. [facility], LAT[facility] <PHYLLIS Mcgowan - Last Filed: 09/24/23 20:59> [facility] Medical History Abdominal pain Arthritis BPH (benign prostatic hyperplasia) Groin pain History of back problems History of hiatal hernia History of kidney stones Hypertension Inguinal hernia bilateral, non-recurrent Left inguinal hernia Right inguinal hernia Home Medications acetaminophen 500 mg tablet 500 mg PO PRN PRN Pain 04/03/17 [History Last Taken Unknown] finasteride 5 mg tablet 5 mg PO DAILY 04/03/17 [History Last Taken Unknown] hydrochlorothiazide 12.5 mg capsule 12.5 mg PO DAILY 04/03/17 [History Last Taken 07/18/19 05:30 12.5 MG] tamsulosin 0.4 mg capsule 0.4 mg PO DAILY 04/03/17 [History Last Taken Unknown] doxycycline hyclate 20 mg tablet 20 mg PO BID 03/13/19 [History Last Taken Unknown] metronidazole 0.75 % topical cream 1 applic topical BID 07/16/19 [History Last Taken Unknown] aspirin 81 mg tablet,delayed release (Rika Low Dose Aspirin) 81 mg PO DAILY 01/28/21 [History Last Taken Unknown] trazodone 50 mg tablet 25 mg PO QHS 01/28/21 [History Last Taken Unknown] multivitamin 1 tab PO DAILY 05/18/21 [History Last Taken Unknown] atorvastatin 10 mg tablet 1 tab PO QHS 05/03/22 [History Last Taken Unknown] docusate sodium 250 mg capsule 250 mg PO BID 05/03/22 [History Last Taken Unknown] furosemide 40 mg tablet (Lasix) 20 mg PO PRN PRN Edema 05/03/22 [History Last Taken Unknown] pantoprazole 40 mg tablet,delayed release 40 mg PO DAILY 05/03/22 [History Last Taken Unknown] nitrofurantoin monohydrate/macrocrystals 100 mg capsule (Macrobid) 100 mg PO Q12H 5 days #10 caps 01/02/23 [Rx Last Taken Unknown] d-mannose 1 ea PO DAILY 09/24/23 [History Last Taken Unknown] dupilumab 300 mg/2 mL subcutaneous pen injector ([employer]) 300 mg subcut .every two weeks 09/24/23 [History Last Taken Unknown] lisinopril 5 mg tablet 5 mg PO DAILY 09/24/23 [History Last Taken Unknown] Allergy/AdvReac Type Severity Reaction Status Date / Time Iodinated Contrast Media Allergy Hives Verified 09/24/23 19:24 [CONTRASTS] azelaic acid [From Finacea] AdvReac Rash Verified 09/24/23 19:24 levofloxacin AdvReac Rash Verified 09/24/23 19:24 meloxicam [From Mobic] AdvReac Nausea Verified 09/24/23 19:24 misoprostol [From Cytotec] AdvReac Nausea Verified 09/24/23 19:24 nabumetone [From Relafen] AdvReac Nausea Verified 09/24/23 19:24 NSAIDS (Non-Steroidal AdvReac Nausea Verified 09/24/23 19:24 Anti-Inflamma sulfamethoxazole AdvReac Nausea Verified 09/24/23 19:24 [From Bactrim] terbinafine AdvReac Nausea Verified 09/24/23 19:24 trimethoprim [From Bactrim] AdvReac Nausea Verified 09/24/23 19:24 valdecoxib [From Bextra] AdvReac Other Verified 09/24/23 19:24 Family History Father Colon cancer Mother Cancer lung Hypertension Brother Cancer Surgical History history exacorporeal shock wave lithrotripsy history lap hiatal hernia repair History of bilateral cataract extraction History of colonoscopy (~02/2019) History of hemorrhoidectomy History of laparoscopic cholecystectomy History of left inguinal hernia repair (~07/18/19) History of right inguinal hernia repair history repair left thumb history ureteral stent insertion Hx of repair of left rotator cuff Hx of repair of right rotator cuff Social History household members: spouse Smoking Status: Never smoker alcohol intake: current alcohol intake frequency: a few times a month substance use type: does not use ROS <PHYLLIS Mcgowan - Last Filed: 09/24/23 20:59> ROS ED ROS Narrative Constitutional: Positive for chills. Negative for fever. ENT: Negative for sore throat, rhinorrhea. CVS: Negative for palpitations, chest pain, syncope. Respiratory: Negative for shortness of breath, cough. GI: Negative for abdominal pain, nausea, vomiting, diarrhea, constipation, m amina, hematochezia. : Positive for frequency. Negative for dysuria, hematuria. Neuro: Negative for headache. EXAM <PHYLLIS Mcgowan - Last Filed: 09/24/23 20:59> Physical Exam Narrative Exam Narrative: CONST: Patient sitting in no acute distress. EYES: Normal inspection. NECK: Normal inspection. RESP: No respiratory distress, CTAB. CVS: Regular rate and rhythm, no murmur, no gallop. ABD: Soft with mild left inguinal tenderness with no palpable hernia, no guarding or rebound, nondistended. Back: Normal inspection, no CVA tenderness. SKIN: Color normal, no rash, warm, dry, intact. EXTREMITIES: Normal appearance, no pedal edema. NEURO: Oriented x4. PSYCH: Normal affect. Const Vital Signs: 09/24/23 19:25 09/24/23 20:25 09/24/23 22:57 Temperature 98.8 F Temperature Source Oral Pulse Rate 87 88 Respiratory Rate 18 18 Respiratory Pattern Normal Blood Pressure 108/56 L 106/44 L Blood Pressure Mean 73 64 Pulse Ox 97 100 Oxygen Delivery Method Room Air Room Air 09/24/23 23:34 09/25/23 00:07 Temperature 101.5 F H Temperature Source Pulse Rate 104 H 97 Respiratory Rate 18 16 Respiratory Pattern Blood Pressure 120/52 L 102/56 L Blood Pressure Mean 74 71 Pulse Ox 96 94 Oxygen Delivery Method Room Air <Dr. Aly Li DO - Last Filed: 09/25/23 00:45> Physical Exam Const Vital Signs: 09/24/23 19:25 09/24/23 20:25 09/24/23 22:57 Temperature 98.8 F Temperature Source Oral Pulse Rate 87 88 Respiratory Rate 18 18 Respiratory Pattern Normal Blood Pressure 108/56 L 106/44 L Blood Pressure Mean 73 64 Pulse Ox 97 100 Oxygen Delivery Method Room Air Room Air 09/24/23 23:34 09/25/23 00:07 Temperature 101.5 F H Temperature Source Pulse Rate 104 H 97 Respiratory Rate 18 16 Respiratory Pattern Blood Pressure 120/52 L 102/56 L Blood Pressure Mean 74 71 Pulse Ox 96 94 Oxygen Delivery Method Room Air MDM <PHYLLIS Mcgowan - Last Filed: 09/24/23 20:59> [facility] MDM Narrative Medical decision making narrative: History gathered from: Patient and spouse Patient had chills and rigors this evening. He is taking Macrobid for UTI. He appears well and nontoxic. Vital signs stable. His exam is benign. He has mild left inguinal tenderness which has been present for the last several weeks. He had negative workup for this here on 09/10 with any CAT scan. Differential for his symptoms today include developing viral illness, pneumonia, UTI among others. Labs and CXR and UA were ordered. White count is normal at 8.5. Hemoglobin of 12.1 is baseline. CXR is negative. EKG is sinus rhythm with no a cute ischemic changes. Lab Data Attestation: I reviewed the patient's lab results. Labs: Laboratory Results - last 24 hr 09/24/23 09/24/23 09/24/23 20:20 22:47 23:55 WBC 8.5 RBC 3.92 L Hgb 12.1 L Hct 38.5 L MCV 98.2 H MCH 30.9 MCHC 31.4 L RDW Std Deviation 46.5 H RDW Coeff of Ezequiel 13.1 Plt Count 171 MPV 9.0 Immature Gran % (Auto) 0.400 Neut % (Auto) 95.5 H Lymph % (Auto) 2.9 L [place] % (Auto) 0.6 Eos % (Auto) 0.2 Baso % (Auto) 0.4 Absolute Neuts (auto) 8.1 H Absolute Lymphs (auto) 0.25 L Nucleated RBC % 0 Differential Comment SCANNED Sodium 136 Potassium 4.3 Chloride 101 Carbon Dioxide 30.0 Anion Gap 5 BUN 24 H Creatinine 1.08 Estim Creat Clear Calc 56.33 Est GFR (MDRD) Af Amer 84 Est GFR (MDRD) Non-Af 70 BUN/Creatinine Ratio 22.2 H Glucose 110 H Lactic Acid 1.6 Calcium 9.3 Troponin I High Sens 6 Urine Color Yellow Urine Clarity Sl Cloudy Urine pH 6.0 Ur Specific [place] 1.015 Urine Protein 30 H Urine Glucose (UA) Normal Urine Ketones 50 H Urine Occult Blood 250 H Urine Nitrite Negative Urine Bilirubin Negative Urine Urobilinogen Normal Ur Leukocyte Esterase 500 H Urine RBC 25-50 SEEN Urine WBC 25-50 SEEN Ur Squamous Epith Cells 0-5 SEEN Ur Transition Epith Cell 0-5 SEEN Urine Bacteria 0 SEEN Urine Mucus 0 SEEN Radiography Diagnostic Testing: Clinical Impression(s) from Imaging Studies Chest X-Ray 09/24/23 20:10 IMPRESSION: No radiographic evidence of acute cardiopulmonary disease. Electronically Signed: Armando Thorpe MD at 20:39 EST , Abdomen/Pelvis CT 09/24/23 23:44 IMPRESSION: Nonspecific small bowel changes which may indicate enteritis in the appropriate clinical setting. Electronically Signed: Armando Thorpe MD at 0:40 EST , ED attending interpretation of 1-view chest x-ray shows normal heart size, no acute infiltrate, edema, or effusion. EKG Initial EKG: Attestation: I personally reviewed and interpreted this EKG as follows: Interpretation: Sinus Rhythm and No Acute Injury Pattern Comments: Normal sinus rhythm 87 bpm Normal intervals, no ST changes <Dr. Aly Li, DO - Last Filed: 09/25/23 00:45> MDM MDM Narrative Medical decision making narrative: History gathered from: Patient and spouse Patient had chills and rigors this evening. He is taking Macrobid for UTI. He appears well and nontoxic. Vital signs stable. His exam is benign. He has mild left inguinal tenderness which has been present for the last several weeks. He had negative workup for this here on 09/10 with any CAT scan. Differential for his symptoms today include developing viral illness, pneumonia, UTI among others. Labs and CXR and UA were ordered. White count is normal at 8.5. Hemoglobin of 12.1 is baseline. CXR is negative. EKG is sinus rhythm with no acute ischemic changes. Patient got up to urinate and had an apparent near syncopal episode. He then began to shake and temperature was noted to go up to 101.5. The patient subsequ ently has developed vomiting. He denies any significant abdominal pain. Blood cultures lactic acid IV fluids Tylenol and Zofran were ordered. The urine specimens really not significantly impressive. It is negative nitrates it 25-50 white cells 25-50 red cells no bacteria. I do wonder if the symptoms today are more due to an underlying viral infection. I think it is reasonable to observe him in the hospital overnight see if new symptoms develop. Control fever hydrate and control nausea vomiting. Hospitalist contacted and is requested a CT of the abdomen pelvis. This was obtained and shows some changes consistent with an enteritis. This would fit the clinical picture of fever and now vomiting. History & Record Review Discussion w/independent historian: Patient and Significant other Lab Data Labs: Laboratory Results - last 24 hr 09/24/23 09/24/23 09/24/23 20:20 22:47 23:55 WBC 8.5 RBC 3.92 L Hgb 12.1 L Hct 38.5 L MCV 98.2 H MCH 30.9 MCHC 31.4 L RDW Std Deviation 46.5 H RDW Coeff of Ezequiel 13.1 Plt Count 171 MPV 9.0 Immature Gran % (Auto) 0.400 Neut % (Auto) 95.5 H Lymph % (Auto) 2.9 L [place] % (Auto) 0.6 Eos % (Auto) 0.2 Baso % (Auto) 0.4 Absolute Neuts (auto) 8.1 H Absolute Lymphs (auto) 0.25 L Nucleated RBC % 0 Differential Comment SCANNED Sodium 136 Potassium 4.3 Chloride 101 Carbon Dioxide 30.0 Anion Gap 5 BUN 24 H Creatinine 1.08 Estim Creat Clear Calc 56.33 Est GFR (MDRD) Af Amer 84 Est GFR (MDRD) Non-Af 70 BUN/Creatinine Ratio 22.2 H Glucose 110 H Lactic Acid 1.6 Calcium 9.3 Troponin I High Sens 6 Urine Color Yellow Urine Clarity Sl Cloudy Urine pH 6.0 Ur Specific [place] 1.015 Urine Protein 30 H Urine Glucose (UA) Normal Urine Ketones 50 H Urine Occult Blood 250 H Urine Nitrite Negative Urine Bilirubin Negative Urine Urobilinogen Normal Ur Leukocyte Esterase 500 H Urine RBC 25-50 SEEN Urine WBC 25-50 SEEN Ur Squamous Epith Cells 0-5 SEEN Ur Transition Epith Cell 0-5 SEEN Urine Bacteria 0 SEEN Urine Mucus 0 SEEN Radiography Diagnostic Testing: Clinical Impression(s) from Imaging Studies Chest X-Ray 09/24/23 20:10 IMPRESSION: No radiographic evidence of acute cardiopulmonary disease. Electronically Signed: Armando Thorpe MD at 20:39 EST , Abdomen/Pelvis CT 09/24/23 23:44 IMPRESSION: Nonspecific small bowel changes which may indicate enteritis in the appropriate clinical setting. Electronically Signed: Armando Thorpe MD at 0:40 EST , Management Discussion w/another healthcare provider: Hospitalist Discharge Plan Dx/Rx/DC Orders Clinical Impression: Near syncope, Acute UTI, Vomiting, Acute febrile illness Disposition Disposition: Located within [facility]
--- NOTE | 2023-09-24 20:10 | RAD_ITS ---
INDICATION: weakness EXAMINATION/TECHNIQUE: X-RAY - portable upright AP chest x-ray COMPARISON: 08/16/2022 FINDINGS: LINES/DEVICES: None. LUNGS: No consolidation, edema or effusion. No pneumothorax. MEDIASTINUM AND CARDIOVASCULAR STRUCTURES: Cardiac silhouette stable within normal limits. BONES AND SOFT TISSUES: No acute changes. RAD/Chest 1 View (Portable) IMPRESSION: No radiographic evidence of acute cardiopulmonary disease. Electronically Signed: Armando Thorpe MD at 20:39 EST ,
[2023-09-24 20:25] VITALS: BP 106/44; PULSE 88; RESP 18; O2SAT 100
[2023-09-24] MEDS: 0.9% Normal Saline (500mL Bag) 500 ML 15 ML IV (20:27)
[2023-09-24 20:36] LABS: Absolute Lymphocyte Count 0.25 X10^3/uL (0.83-4.51); Absolute Neutrophil Count 8.1 X10^3/uL (2.0-7.7); Basophil# 0.03 X10^3/uL; Basophil% 0.4 % (0-1); Eosinophil# 0.02 X10^3/uL; Eosinophils% 0.2 % (0-5); Hematocrit 38.5 % (40-54); Hemoglobin 12.1 g/dL (13.0-16.5); Lymphocyte # 0.25 X10^3/ul (0.83-4.51); Lymphocyte % 2.9 % (19-41); Mean Corp Hgb Conc 31.4 g/dL (32-36); Mean Corpuscular Hgb 30.9 pg (27.0-32.0); Mean Corpuscular Volume 98.2 fL (80-94); Monocyte# 0.05 X10^3/uL; Monocyte% 0.6 % (0-10); NRBC Flagged by Analyzer 0 % (0-5); Neutrophil # 8.11 X10^3/uL (2.7-7.7); Neutrophil % 95.5 % (47-70); POSITIVE DIFFERENTIAL YES; Platelet Count 171 K/mm3 (150-450); RBC Distribution Width CV 13.1 % (11.6-14.6); RBC Distribution Width SD 46.5 fl (35.1-43.9); Red Blood Count 3.92 M/mm3 (4.6-6.2); White Blood Count 8.5 K/mm3 (4.4-11.0)
[2023-09-24 20:40] LABS: Differential Indicated SCAN CRITERIA MET
[2023-09-24 20:55] LABS: Differential Comment SCANNED
[2023-09-24 21:05] LABS: Anion Gap 5 (5-15); BUN 24 mg/dL (7-18); BUN/Creat Ratio 22.2 RATIO (10-20); Calcium,Total 9.3 mg/dL (8.5-10.1); Chloride 101 mmol/L (98-107); Creatinine, Serum 1.08 mg/dL (0.70-1.30); EST Glomerular Filtration Rate 70 mL/min (>60); Est Glom Filt Rate - Afr Amer 84 mL/min (>60); Estimated Creatinine Clearance 56.33 ml/min; Glucose 110 mg/dL (74-106); Potassium 4.3 mmol/L (3.5-5.1); Sodium Level 136 mmol/L (136-145); Troponin-I HS 6 pg/mL (3.0-78.0)
[2023-09-24 22:54] LABS: Bacteria 0 SEEN /hpf (None Seen); Mucous, Urine 0 SEEN /hpf (<or=2+)
[2023-09-24 22:56] LABS: Glucose, Dipstick Normal (Normal); Ketone-Dipstick 50 mg/dl (Negative); Leukocyte Esterase-Dipstick 500 /ul (Negative); Nitrite-Dipstick Negative (Negative); Occult Blood-Urine 250 /ul (Negative); Protein-Dipstick 30 mg/dl (Negative); Specific Gravity, Urine 1.015 (1.002-1.030); Urine Bilirubin Dipstick Negative (Negative); Urine Urobilinogen Normal (Normal)
[2023-09-24 23:15] LABS: Color, Urine Yellow (Yellow); Red Blood Cells-Urine 25-50 SEEN /hpf (0-5); Squamous Epithelial Cells - UA 0-5 SEEN /hpf (0-5); Transitional Epithelial - Ur 0-5 SEEN /hpf (0-5); Urine Clarity Sl Cloudy (Clear); White Blood Cells 25-50 SEEN /hpf (0-5)
[2023-09-24 23:34] VITALS: BP 120/52; PULSE 104; RESP 18; TEMP 38.6; O2SAT 96
--- NOTE | 2023-09-24 23:38 | PCM.HP.STD ---
HPI - General General Date of Admission: 09/25/23 Date of Service: 09/25/23 Chief Complaint: Fevers and rigors HPI Narrative JAVIER BOND, is a 82 M who presented to [facility] ED on 09/25/2023 with episodes of fevers and rigors at home. Patient seen at bedside in the ED, present. Patient was sitting up comfortably in bed, conversing normally, in no acute distress. Patient has history of kidney stones with frequent urinary tract infections, follows outpatient with urology. Was seen in the ED on 09/10/2023 with left lower quadrant abdominal pain. UA was consistent with infection, but CT abdomen pelvis showed no concern for kidney stones or for hydronephrosis. CT scan did show moderate degree of constipation. Patient was discharged home from the ED on Keflex and instructed to take stool softeners to assist with his constipation. Patient completed 10-day course of Keflex but continued to have left lower quadrant pain, so he had a UA checked by his PCP office again around 3 to 4 days ago and it still appeared infectious. Patient was started on Macrobid at that time. Patient then developed subjective fevers and rigors at home on the afternoon of 09/24. States he had several episodes of a significant degree of shaking, and also developed nausea with a few episodes of vomiting, so they called EMS to bring him to the ED. Since arrival to the ED, patient has continued to have some shaking/rigors. Patient currently does feel somewhat improved from arrival after receiving IV fluids and doses of Zofran and Tylenol. However, patient still has significant shaking and some associated lightheadedness and weakness with ambulation. 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 Since that time, patient has had fairly persistent constipation and difficulty with stooling. Patient takes stool softeners at home, does not take MiraLAX or senna, does not use suppositories regularly. Does try to take in lots of fiber with his diet. Patient states that his bowel movements recently have been about his normal, meaning he has had fairly hard stools with a moderate amount of difficulty with expelling his stool. He notably denies any significant abdominal pain or tenderness during that time. His pain has consistently been in the left lower quadrant. Previously had a left inguinal hernia repair, but CT scans have been negative for recurrent hernia. Patient otherwise denies any acute concerns at this time. [facility] Medical History Abdominal pain Arthritis BPH (benign prostatic hyperplasia) Groin pain History of back problems History of hiatal hernia History of kidney stones Hypertension Inguinal hernia bilateral, non-recurrent Left inguinal hernia Right inguinal hernia Home Medications acetaminophen 500 mg tablet 500 mg PO PRN PRN Pain 04/03/17 [History Last Taken Unknown] finasteride 5 mg tablet 5 mg PO DAILY 04/03/17 [History Last Taken Unknown] hydrochlorothiazide 12.5 mg capsule 12.5 mg PO DAILY 04/03/17 [History Last Taken 07/18/19 05:30 12.5 MG] tamsulosin 0.4 mg capsule 0.4 mg PO DAILY 04/03/17 [History Last Taken Unknown] doxycycline hyclate 20 mg tablet 20 mg PO BID 03/13/19 [History Last Taken Unknown] metronidazole 0.75 % topical cream 1 applic topical BID 07/16/19 [History Last Taken Unknown] aspirin 81 mg tablet,delayed release (Rika Low Dose Aspirin) 81 mg PO DAILY 01/28/21 [History Last Taken Unknown] trazodone 50 mg tablet 25 mg PO QHS 01/28/21 [History Last Taken Unknown] multivitamin 1 tab PO DAILY 05/18/21 [History Last Taken Unknown] atorvastatin 10 mg tablet 1 tab PO QHS 05/03/22 [History Last Taken Unknown] docusate sodium 250 mg capsule 250 mg PO BID 05/03/22 [History Last Taken Unknown] furosemide 40 mg tablet (Lasix) 20 mg PO PRN PRN Edema 05/03/22 [History Last Taken Unknown] pantoprazole 40 mg tablet,delayed release 40 mg PO DAILY 05/03/22 [History Last Taken Unknown] nitrofurantoin monohydrate/macrocrystals 100 mg capsule (Macrobid) 100 mg PO Q12H 5 days #10 caps 01/02/23 [Rx Last Taken Unknown] d-mannose 1 ea PO DAILY 09/24/23 [History Last Taken Unknown] dupilumab 300 mg/2 mL subcutaneous pen injector (Dupixent) 300 mg subcut .every two weeks 09/24/23 [History Last Taken Unknown] lisinopril 5 mg tablet 5 mg PO DAILY 09/24/23 [History Last Taken Unknown] Allergy/AdvReac Type Severity Reaction Status Date / Time Iodinated Contrast Media Allergy Hives Verified 09/24/23 19:24 [CONTRASTS] azelaic acid [From Finacea] AdvReac Rash Verified 09/24/23 19:24 levofloxacin AdvReac Rash Verified 09/24/23 19:24 meloxicam [From Mobic] AdvReac Nausea Verified 09/24/23 19:24 misoprostol [From Cytotec] AdvReac Nausea Verified 09/24/23 19:24 nabumetone [From Relafen] AdvReac Nausea Verified 09/24/23 19:24 NSAIDS (Non-Steroidal AdvReac Nausea Verified 09/24/23 19:24 Anti-Inflamma sulfamethoxazole AdvReac Nausea Verified 09/24/23 19:24 [From Bactrim] terbinafine AdvReac Nausea Verified 09/24/23 19:24 trimethoprim [From Bactrim] AdvReac Nausea Verified 09/24/23 19:24 valdecoxib [From Bextra] AdvReac Other Verified 09/24/23 19:24 Family History Father Colon cancer Mother Cancer lung Hypertension Brother Cancer Surgical History history exacorporeal shock wave lithrotripsy history lap hiatal hernia repair History of bilateral cataract extraction History of colonoscopy (~02/2019) History of hemorrhoidectomy History of laparoscopic cholecystectomy History of left inguinal hernia repair (~07/18/19) History of right inguinal hernia repair history repair left thumb history ureteral stent insertion Hx of repair of left rotator cuff Hx of repair of right rotator cuff Social History household members: spouse Smoking Status: Never smoker alcohol intake: current alcohol intake frequency: a few times a month substance use type: does not use ROS Constitutional Constitutional: Reports chills, fever(s) and weakness; Denies fatigue Eyes Eyes: Denies change in vision Cardiovascular Cardiovascular: Denies chest pain Respiratory/Chest Respiratory/Chest: Denies cough Gastrointestinal Gastrointestinal: Reports constipation, nausea and vomiting; Denies abdominal pain or diarrhea Genitourinary Genitourinary: Reports urinary frequency; Denies burning urination, difficulty urinating, dysuria, urinary hesitancy, urinary incontinence or urinary urgency Musculoskeletal Musculoskeletal: Denies arthralgias or back pain Neurologic Neurologic: Denies dizziness, focal weakness or headache(s) Vital Signs Vital Signs Vital Signs: 09/24/23 19:25 09/24/23 20:25 09/24/23 22:57 Temperature 98.8 F Temperature Source Oral Pulse Rate 87 88 Respiratory Rate 18 18 Respiratory Pattern Normal Blood Pressure 108/56 L 106/44 L Blood Pressure Mean 73 64 Pulse Ox 97 100 Oxygen Delivery Method Room Air Room Air 09/24/23 23:34 Temperature 101.5 F H Temperature Source Pulse Rate 104 H Respiratory Rate 18 Respiratory Pattern Blood Pressure 120/52 L Blood Pressure Mean 74 Pulse Ox 96 Oxygen Delivery Method Weight Weight: 76.3 kg Body Mass Index (BMI) 24.1 Physical Exam Const alert, oriented x3, no apparent distress, average body habitus, healthy appearing and well nourished Constitutional Narrative: Pleasant elderly male, very talkative, sitting up comfortably in bed, conversing normally, in no acute distress. General Appearance: cooperative, comfortable, well kempt and well developed HEENT normocephalic, head/scalp atraumatic, hearing grossly normal bilaterally, nasal mucous membranes and turbinates normal and moist oral mucous membranes Eyes PERRL, EOMs intact bilaterally and conjunctivae normal Neck full ROM, no lymphadenopathy and supple Lymph Lymphatic: no lymphadenopathy noted Chest inspection of chest normal Resp normal respiratory effort, normal air movement, no use of accessory muscles and clear to auscultation bilaterally Cardio no murmurs and peripheral pulses 2+ throughout Cardio Narrative: Sinus tachycardia. GI GI Narrative: Mild tenderness to palpation in left lower quadrant. Abdomen otherwise fairly soft, nondistended, nontender to palpation with normoactive bowel sounds. Back/Spine normal ROM Extremity normal to inspection, full ROM and no pedal edema Skin no rashes or lesions noted Neuro moves all extremities and no focal motor deficits Speech: speech normal Psych mental status grossly normal Results Lab / Micro Data 09/24/23 20:20 09/24/23 20:20 Labs: Laboratory Results - last 24 hr 09/24/23 20:20: WBC 8.5, RBC 3.92 L, Hgb 12.1 L, Hct 38.5 L, MCV 98.2 H, MCH 30.9, MCHC 31.4 L, RDW Std Deviation 46.5 H, RDW Coeff of Ezequiel 13.1, Plt Count 171, MPV 9.0, Immature Gran % (Auto) 0.400, Neut % (Auto) 95.5 H, Lymph % (Auto) 2.9 L, [place] % (Auto) 0.6, Eos % (Auto) 0.2, Baso % (Auto) 0.4, Absolute Neuts (auto) 8.1 H, Absolute Lymphs (auto) 0.25 L, Nucleated RBC % 0, Differential Comment SCANNED, Sodium 136, Potassium 4.3, Chloride 101, Carbon Dioxide 30.0, Anion Gap 5, BUN 24 H, Creatinine 1.08, Estim Creat Clear Calc 56.33, Est GFR (MDRD) Af Amer 84, Est GFR (MDRD) Non-Af 70, BUN/Creatinine Ratio 22.2 H, Glucose 110 H, Calcium 9.3, Troponin I High Sens 6 09/24/23 22:47: Urine Color Yellow, Urine Clarity Sl Cloudy, Urine pH 6.0, Ur Specific [place] 1.015, Urine Protein 30 H, Urine Glucose (UA) Normal, Urine Ketones 50 H, Urine Occult Blood 250 H, Urine Nitrite Negative, Urine Bilirubin Negative, Urine Urobilinogen Normal, Ur Leukocyte Esterase 500 H, Urine RBC 25-50 SEEN, Urine WBC 25-50 SEEN, Ur Squamous Epith Cells 0-5 SEEN, Ur Transition Epith Cell 0-5 SEEN, Urine Bacteria 0 SEEN, Urine Mucus 0 SEEN Micro: Microbiology 09/24/23 21:00 Nasal Secretion SARS-CoV-2 & FLU Antigen (Rapid) - Final Imagaing Radiology Impression Chest X-Ray 09/24/23 20:10 IMPRESSION: No radiographic evidence of acute cardiopulmonary disease. Electronically Signed: Armando Thorpe MD at 20:39 EST Reading Location ID and State: [facility], [facility] / [place] Tel , Service support , Assessment & Plan Assessment/Plan (1) Sepsis without septic shock: (2) Weakness: PLAN: Plan Patient is an 82-year-old male who presented to [facility] ED on 09/25/2023 with fevers and rigors. 1. Sepsis without shock, concern for gastroenteritis, history of constipation Febrile to 101.5F, sinus tachycardia to low 100s, mildly hypotensive with suspected intra-abdominal source. qSOFA score of 2 (SBP < 100, RR > 22). Meets sepsis criteria. CT abdomen pelvis showed nonspecific small bowel changes concerning for enteritis. UA noninfectious, CT scan with small nonobstructing left renal calculi, no hydronephrosis, no evidence of cystitis. Chest x-ray nonacute. COVID and flu negative. ? Admit under inpatient status to PCU. Will start ceftriaxone and IV Flagyl for intra-abdominal coverage. Blood cultures pending. Stool PCR ordered. LR for maintenance IV fluids. Will start senna and MiraLAX scheduled with Dulcolax suppositories as needed for constipation. Monitor closely. 2. Weakness with mild debility, history of lumbar spine injury with spinal fusion Lives at home with in trilevel home. Had L-spine fusion about 3 years ago. Still is able to do all things around the home without issue. Walks down his steps backward due to his spinal fusion, no issues with any falls. Patient does report considerable weakness currently, likely due to active infection. ? PT/OT/case management consulted. 3. History of intermittent urinary retention post spinal fusion, history of recurrent nephrolithiasis with UTIs, BPH Patient follows with [facility]. Has history of intermittent urinary retention after his spinal fusion procedure 3 years ago. Was apparently told by first urologist that he should intermittently straight cath at home, so he and got a second opinion from [facility] urology. Has not required catheter at home to this point. History of nephrolithiasis with pyelonephritis and septic shock about 3 years ago, has had recurrent kidney stones with mild UTIs since then. Most recent UTI was about 2 weeks ago as noted in HPI. ? UA noninfectious, CT abdomen pelvis with small nonobstructing nephrolithiasis and no evidence of hydronephrosis on this admission. No concern for urinary retention at this time. Continue home Flomax and finasteride. Chronic medical conditions: ? Hypertension: Holding home lisinopril, hydrochlorothiazide for now, restart as able. ? Hyperlipidemia: Continue home statin. ? GERD: Continue home PPI. DVT prophylaxis: Lovenox CODE STATUS: Full code, verified Expected disposition: Home, 2 to 3 days Total clinical time spent by myself addressing the patient's medical issues, reviewing all the data, and collaborating with patient's care team: 55 minutes. Charges/Coding Visit Charges Inpatient E&M: 47120 Init Hosp L2
--- NOTE | 2023-09-24 23:44 | CT_ITS ---
INDICATION: pain and fever EXAMINATION: CT ABDOMEN AND PELVIS WITHOUT CONTRAST - CT Abdomen And Pelvis W/O Contrast Injection TECHNIQUE: Helically acquired images were obtained of the abdomen and pelvis without oral or IV contrast. A radiation dose optimization technique was used for this scan. IV Contrast dosage and agent: None. Oral contrast: None. COMPARISON: 09/10/2023 FINDINGS: LOWER CHEST: Lung bases are clear. No cardiomegaly or pericardial effusion. LIVER: Homogeneous. No focal mass. GALLBLADDER AND BILIARY TREE: Gallbladder absent. Stable dilatation of the common bile duct. PANCREAS: No focal cystic or solid mass. SPLEEN: Normal size without focal cystic or solid mass. ADRENAL GLANDS: No nodules. KIDNEYS AND URETERS: Nonobstructing left renal calculi. No hydronephrosis. PERITONEUM: No ascites or free air. BOWEL: Normal appendix. Diffusely increased small bowel fluid contents with minimal distention. No focal inflammatory change. LYMPH NODES: No enlarged mesenteric or retroperitoneal lymph nodes. VESSELS: Aorta is non-dilated. URINARY BLADDER: Unremarkable. REPRODUCTIVE ORGANS: No pelvic masses. BONES: Stable surgical changes lumbar spine. No acute or aggressive osseous abnormality. CT/Abdomen/Pelvis without Cont IMPRESSION: Nonspecific small bowel changes which may indicate enteritis in the appropriate clinical setting. Electronically Signed: Armando Thorpe MD at 0:40 EST ,
[2023-09-25] VITALS (14 sets, daily range): BP systolic 90–121; BP diastolic 41–58; PULSE 81–101; RESP 10–23; TEMP 36.7–38.6; O2SAT 94–98; BMI 22.8
[2023-09-25] MEDS: Acetaminophen 500 MG Tablet 1000 MG PO (00:09)
[2023-09-25] MEDS: Ondansetron 4 MG/2 ML Vial IV (00:09)
[2023-09-25 00:31] LABS: Lactic Acid 1.6 mmol/L (0.4-1.9)
[2023-09-25] MEDS: 0.9% Normal Saline (1000mL) 1,000 ML 200 ML IV (00:51)
[2023-09-25] MEDS: Lactated Ringers 1,000 ML 100 ML IV ×2 (02:36→12:18)
[2023-09-25] MEDS: Ceftriaxone 2 GM in 0.9% Normal Saline (50mL MB+) 50 ML IV (02:39)
[2023-09-25] MEDS: Senna Tablet 2 TABLET PO ×3 (02:45→20:48)
[2023-09-25] MEDS: Polyethylene Glycol 3350 17 GM PACKET PO ×2 (02:45→12:02)
[2023-09-25] MEDS: metroNIDAZOLE 500 MG/100 ML BAG 100 MG IV (04:55)
[2023-09-25 05:58] LABS: Hematocrit 33.1 % (40-54); Hemoglobin 10.6 g/dL (13.0-16.5); Mean Corpuscular Hgb 31.1 pg (27.0-32.0); Mean Corpuscular Volume 97.1 fL (80-94); Mean Platelet Vol. 9.2 fl (6.2-12.0); Platelet Count 145 K/mm3 (150-450); RBC Distribution Width CV 13.1 % (11.6-14.6); RBC Distribution Width SD 46.6 fl (35.1-43.9); Red Blood Count 3.41 M/mm3 (4.6-6.2); White Blood Count 10.7 K/mm3 (4.4-11.0)
[2023-09-25 06:17] LABS: Anion Gap 7 (5-15); BUN 22 mg/dL (7-18); BUN/Creat Ratio 20.6 RATIO (10-20); Calcium,Total 8.2 mg/dL (8.5-10.1); Chloride 104 mmol/L (98-107); Creatinine, Serum 1.07 mg/dL (0.70-1.30); EST Glomerular Filtration Rate 71 mL/min (>60); Est Glom Filt Rate - Afr Amer 85 mL/min (>60); Estimated Creatinine Clearance 58.02 ml/min; Glucose 112 mg/dL (74-106); Potassium 3.7 mmol/L (3.5-5.1); Sodium Level 137 mmol/L (136-145)
[2023-09-25] MEDS: Acetaminophen 325 MG Tablet 650 MG PO (06:45)
--- NOTE | 2023-09-25 10:34 | PN_ITS ---
Subjective Subjective Patient seen and examined. was by his bedside. He complains of fever and chills. he denied any urinary symptoms. Review of systems is otherwise negative. He denied any nausea, vomiting or diarrhea. He actually has a history of constipation. Objective Data Objective Data Vital Signs: Vital Signs Temp Pulse Resp BP Pulse Ox O2 Del Method 99.6 F H 88 10 L 116/58 L 95 Room Air 09/25/23 06:16 09/25/23 06:16 09/25/23 06:25 09/25/23 06:16 09/25/23 06:16 09/25/23 06:16 Oxygen Delivery Method Room Air Weight: 164 lb 3.91 oz Body Mass Index (BMI) 22.8 Intake & Output: Intake and Output for Last 24 Hours 09/23/23 09/24/23 09/25/23 23:59 23:59 23:59 Intake Total 446.25 / 446.25 Output Total 250 / 250 Balance 196.25 / 196.25 Lab / Micro Data 09/25/23 05:18 09/25/23 05:18 Labs: Laboratory Results - last 24 hr 09/24/23 20:20: WBC 8.5, RBC 3.92 L, Hgb 12.1 L, Hct 38.5 L, MCV 98.2 H, MCH 30.9, MCHC 31.4 L, RDW Std Deviation 46.5 H, RDW Coeff of Ezequiel 13.1, Plt Count 171, MPV 9.0, Immature Gran % (Auto) 0.400, Neut % (Auto) 95.5 H, Lymph % (Auto) 2.9 L, [place] % (Auto) 0.6, Eos % (Auto) 0.2, Baso % (Auto) 0.4, Absolute Neuts (auto) 8.1 H, Absolute Lymphs (auto) 0.25 L, Nucleated RBC % 0, Differential Comment SCANNED, Sodium 136, Potassium 4.3, Chloride 101, Carbon Dioxide 30.0, Anion Gap 5, BUN 24 H, Creatinine 1.08, Estim Creat Clear Calc 56.33, Est GFR (MDRD) Af Amer 84, Est GFR (MDRD) Non-Af 70, BUN/Creatinine Ratio 22.2 H, Glucose 110 H, Calcium 9.3, Troponin I High Sens 6 09/24/23 22:47: Urine Color Yellow, Urine Clarity Sl Cloudy, Urine pH 6.0, Ur Specific [place] 1.015, Urine Protein 30 H, Urine Glucose (UA) Normal, Urine Ketones 50 H, Urine Occult Blood 250 H, Urine Nitrite Negative, Urine Bilirubin Negative, Urine Urobilinogen Normal, Ur Leukocyte Esterase 500 H, Urine RBC 25- 50 SEEN, Urine WBC 25-50 SEEN, Ur Squamous Epith Cells 0-5 SEEN, Ur Transition Epith Cell 0-5 SEEN, Urine Bacteria 0 SEEN, Urine Mucus 0 SEEN 09/24/23 23:55: Lactic Acid 1.6 09/25/23 05:18: WBC 10.7, RBC 3.41 L, Hgb 10.6 L, Hct 33.1 L, MCV 97.1 H, MCH 31.1, MCHC 32.0, RDW Std Deviation 46.6 H, RDW Coeff of Ezequiel 13.1, Plt Count 145 L, MPV 9.2, Sodium 137, Potassium 3.7, Chloride 104, Carbon Dioxide 26.0, Anion Gap 7, BUN 22 H, Creatinine 1.07, Estim Creat Clear Calc 58.02, Est GFR (MDRD) Af Amer 85, Est GFR (MDRD) Non-Af 71, BUN/Creatinine Ratio 20.6 H, Glucose 112 H , Calcium 8.2 L Micro: Microbiology 09/25/23 05:45 Mucosa - Nasopharyngeal Respiratory Panel (PCR) - Final 09/24/23 21:00 Nasal Secretion SARS-CoV-2 & FLU Antigen (Rapid) - Final Radiography Diagnostic Testing: Radiology Impression Chest X-Ray 09/24/23 20:10 IMPRESSION: No radiographic evidence of acute cardiopulmonary disease. Electronically Signed: Armando Thorpe MD at 20:39 EST , Abdomen/Pelvis CT 09/24/23 23:44 IMPRESSION: Nonspecific small bowel changes which may indicate enteritis in the appropriate clinical setting. Electronically Signed: Armando Thorpe MD at 0:40 EST , Physical Exam Const alert, oriented x3 and no apparent distress Constitutional Narrative: febrile General Appearance: cooperative HEENT normocephalic, head/scalp atraumatic, moist oral mucous membranes and oropharynx normal Eyes PERRL and EOMs intact bilaterally Neck no lymphadenopathy and supple Lymph Lymphatic: no lymphadenopathy noted and no lymphedema noted Resp normal respiratory effort, normal air movement and clear to auscultation bilaterally Cardio regular rate, regular rhythm, S1 normal heart sound, S2 normal heart sound and no murmurs GI normal to inspection, nondistended, normoactive bowel sounds, soft to palpation, non-tender and non-distended Extremity normal capillary refill, no clubbing, cyanosis or edema and no calf tenderness General Extremity: no tenderness to palpation of joints or extremities Skin General Skin Exam: no breakdown Neuro CN's II-XII intact bilaterally, no focal motor deficits, no sensory deficits noted and deep tendon reflexes 2+ bilaterally Motor Exam: strength 5/5 throughout and general weakness Psych thought process normal and cooperative Appearance: appropriate Assessment & Plan Assessment/Plan (1) Sepsis without septic shock: (2) Acute febrile illness: (3) Weakness: PLAN: Plan #Sepsis without shock * etiology is not clear. I am not sure he has gastroenteritis [place] any diarrhea or vomiting * CT of the abdomen showed nonspecific small bowel changes. It also showed a small nonobstructing left renal calculi. * Chest x-ray showed no acute cardiopulmonary pathology. COVID and flu are not n egative. * will switch antibiotics from IV ceftriaxone and metronidazole to IV vancomycin and zosyn for broader coverage * await blood cultures and urine cultures. * #History of lumbar spine injury with fusion * had L spine fusion a few years ago. * PT.OT On board. Fall precautions. * #Debility and weakness due to lumbar spine fusion: as above. #History of intermittent urinary retention due to spinal fusion, with hisoty of recurrent UTI nad recurrent kidney stones * Follows up with urology at [facility]. * Has had intermittent urinary retention * follow up with urology on outpatient basis * #Hypertension; lisinopril and HCTZ on hold for now as BP was running low. WIll continue holding and hydrate gently with IVF and monitor. #Hyperlipidemia: on statin #GERD; on PPI DVT prophylaxis; lovenox Charges/Coding Visit Charges Inpatient E&M: 63277 Subs Hosp L2
[2023-09-25] MEDS: Enoxaparin 40 MG/0.4 ML Syringe SC (12:02)
[2023-09-25] MEDS: Finasteride 5 MG Tablet PO (12:03)
[2023-09-25] MEDS: Tamsulosin HCl 0.4 MG Capsule 0.400000000000000022 MG PO (12:03)
[2023-09-25] MEDS: Pantoprazole Sodium 40 MG Tablet PO (12:03)
[2023-09-25] MEDS: Aspirin E.C. 81 MG Tablet PO (12:03)
[2023-09-25] MEDS: Vancomycin HCl 2,000 MG in 0.9% Normal Saline (500mL Bag) 500 ML 250 MG IV (12:23)
--- NOTE | 2023-09-25 12:48 | PCM.RX.CS ---
Consult Antibiotic Management Pharmacy has been consulted to manage selected antibiotic: Vancomycin Type of Intervention Type of Consult: New start Suspected Infection Suspected Infection: Sepsis Labs Labs: Sodium 137 mmol/L (136-145) 09/25/23 05:18 Potassium 3.7 mmol/L (3.5-5.1) 09/25/23 05:18 Chloride 104 mmol/L (98-107) 09/25/23 05:18 Carbon Dioxide 26.0 mmol/L (21.0-32.0) 09/25/23 05:18 Anion Gap 7 (5-15) 09/25/23 05:18 BUN 22 mg/dL (7-18) H 09/25/23 05:18 Creatinine 1.07 mg/dL (0.70-1.30) 09/25/23 05:18 Est GFR (MDRD) Af Amer 85 mL/min (>60) 09/25/23 05:18 Est GFR (MDRD) Non-Af 71 mL/min (>60) 09/25/23 05:18 BUN/Creatinine Ratio 20.6 RATIO (10-20) H 09/25/23 05:18 Glucose 112 mg/dL (74-106) H 09/25/23 05:18 Microbiology Microbiology: Microbiology 09/25/23 05:45 Mucosa - Nasopharyngeal Respiratory Panel (PCR) - Final 09/24/23 21:00 Nasal Secretion SARS-CoV-2 & FLU Antigen (Rapid) - Final Dosing Weight Weight used for dosin.5 kg Estimated Creatinine Clearance Estimated Creatinine Clearance: 58ML/MIN Goal Trough Goal Trough: 15-20 mcg/mL Pharmacy Plan for Drug Dosing Pharmacy Plan for Drug Dosing: Give initial load dose of 2000mg IV x1, then continue with 750mg IV q12h per [facility] dosing protocol. Will check a trough before the 4th total dose. Pharmacy Service will continue to monitor and adjust dosing as required. Follow-Up Labs Follow-Up Labs: Trough: Vancomycin Date/Time Labs Ordered Labs to be done on [date and time ordered]: 09/26/23 23:30
[2023-09-25] MEDS: 0.9% Normal Saline (1000mL) 1,000 ML 125 ML IV ×2 (15:29→23:12)
[2023-09-25] MEDS: Piperacil/Tazobactam 3.375 GM in 0.9% Normal Saline (50mL MB+) 50 ML IV ×2 (15:29→20:46)
[2023-09-25] MEDS: Atorvastatin Calcium 10 MG Tablet PO (20:48)
[2023-09-25] MEDS: Vancomycin HCl 750 MG in 0.9% Normal Saline (250mL Bag) 250 ML 250 MG IV (23:46)
[2023-09-26 01:00] VITALS: BP 92/50; PULSE 71; RESP 18; TEMP 37.2; O2SAT 94
[2023-09-26 03:25] VITALS: BP 116/57; PULSE 79; RESP 18; TEMP 36.8; O2SAT 96
[2023-09-26] MEDS: 0.9% Saline Lock 10 ML Syringe IV ×2 (04:02→21:19)
[2023-09-26] MEDS: Piperacil/Tazobactam 3.375 GM in 0.9% Normal Saline (50mL MB+) 50 ML IV ×3 (05:35→21:16)
[2023-09-26 06:42] LABS: Absolute Lymphocyte Count 0.81 X10^3/uL (0.83-4.51); Absolute Neutrophil Count 5.2 X10^3/uL (2.0-7.7); Basophil# 0.02 X10^3/uL; Basophil% 0.3 % (0-1); Eosinophil# 0.08 X10^3/uL; Eosinophils% 1.2 % (0-5); Hematocrit 29.8 % (40-54); Hemoglobin 9.5 g/dL (13.0-16.5); Lymphocyte # 0.81 X10^3/ul (0.83-4.51); Lymphocyte % 12.3 % (19-41); Mean Corp Hgb Conc 31.9 g/dL (32-36); Mean Corpuscular Hgb 31.3 pg (27.0-32.0); Mean Platelet Vol. 9.6 fl (6.2-12.0); Monocyte# 0.45 X10^3/uL; Monocyte% 6.8 % (0-10); NRBC Flagged by Analyzer 0 % (0-5); Neutrophil % 79.1 % (47-70); Platelet Count 113 K/mm3 (150-450); RBC Distribution Width CV 13.2 % (11.6-14.6); RBC Distribution Width SD 47.4 fl (35.1-43.9); Red Blood Count 3.04 M/mm3 (4.6-6.2); White Blood Count 6.6 K/mm3 (4.4-11.0)
[2023-09-26 07:05] LABS: Anion Gap 5 (5-15); BUN 22 mg/dL (7-18); BUN/Creat Ratio 27.3 RATIO (10-20); Calcium,Total 7.7 mg/dL (8.5-10.1); Chloride 108 mmol/L (98-107); EST Glomerular Filtration Rate 98 mL/min (>60); Est Glom Filt Rate - Afr Amer 119 mL/min (>60); Glucose 93 mg/dL (74-106); Potassium 3.8 mmol/L (3.5-5.1); Sodium Level 138 mmol/L (136-145)
[2023-09-26 07:44] VITALS: O2SAT 95
[2023-09-26] MEDS: Enoxaparin 40 MG/0.4 ML Syringe SC (09:01)
[2023-09-26] MEDS: Finasteride 5 MG Tablet PO (09:01)
[2023-09-26] MEDS: Tamsulosin HCl 0.4 MG Capsule 0.400000000000000022 MG PO (09:02)
[2023-09-26] MEDS: Aspirin E.C. 81 MG Tablet PO (09:02)
[2023-09-26] MEDS: Polyethylene Glycol 3350 17 GM PACKET PO (09:02)
[2023-09-26] MEDS: Senna Tablet 2 TABLET PO (09:02)
[2023-09-26] MEDS: Pantoprazole Sodium 40 MG Tablet PO (09:03)
[2023-09-26 09:24] VITALS: BP 105/54; PULSE 81; RESP 18; TEMP 36.6; O2SAT 97
--- NOTE | 2023-09-26 10:57 | PN.HOSP_ITS ---
Subjective Subjective Doing well, no issues overnight, has some mild abdominal pain that is appearing to improve no diarrhea or nausea and vomiting. He has remained afebrile for over 24 hours Objective Data Objective Data Vital Signs: Vital Signs Temp Pulse Resp BP Pulse Ox O2 Del Method 97.9 F 81 18 105/54 L 97 Room Air 09/26/23 09:24 09/26/23 09:24 09/26/23 09:24 09/26/23 09:24 09/26/23 09:24 09/26/23 09:24 Oxygen Delivery Method Room Air Weight: 164 lb 3.91 oz Body Mass Index (BMI) 22.8 Intake & Output: Intake and Output for Last 24 Hours 09/25/23 09/26/23 09/27/23 03:59 03:59 03:59 Intake Total 296.25 / 296.25 4488.74 / 4488.74 868.75 / 868.75 Output Total 650 / 650 350 / 350 Balance 296.25 / 296.25 3838.74 / 3838.74 518.75 / 518.75 Lab / Micro Data 09/26/23 05:23 09/26/23 05:23 Labs: Laboratory Results - last 24 hr 09/26/23 05:23: WBC 6.6, RBC 3.04 L, Hgb 9.5 L, Hct 29.8 L, MCV 98.0 H, MCH 31.3, MCHC 31.9 L, RDW Std Deviation 47.4 H, RDW Coeff of Ezequiel 13.2, Plt Count 113 L, MPV 9.6, Immature Gran % (Auto) 0.300, Neut % (Auto) 79.1 H, Lymph % (Auto) 12.3 L, Trimble % (Auto) 6.8, Eos % (Auto) 1.2, Baso % (Auto) 0.3, Absolute Neuts (auto) 5.2, Absolute Lymphs (auto) 0.81 L, Nucleated RBC % 0, Sodium 138, Potassium 3.8, Chloride 108 H, Carbon Dioxide 25.0, Anion Gap 5, BUN 22 H, Creatinine 0.80, Estim Creat Clear Calc 77.60, Est GFR (MDRD) Af Amer 119, Est GFR (MDRD) Non-Af 98, BUN/Creatinine Ratio 27.3 H, Glucose 93, Calcium 7.7 L Micro: Microbiology 09/24/23 23:55 Blood Culture (Wb) - Anticubital Left Blood Culture - Preliminary 09/25/23 05:45 Mucosa - Nasopharyngeal Respiratory Panel (PCR) - Final 09/24/23 21:00 Nasal Secretion SARS-CoV-2 & FLU Antigen (Rapid) - Final Physical Exam Narrative General: Alert, Oriented x3, Cooperative, No apparent distress HEENT: Atraumatic, PERRLA, EOMI, Normocephalic Oral: Moist Mucosa Neck: Supple, No JVD Lungs: Diminished, Normal air movement, No rhonchi, No wheeze, No rales Cardiovascular: Regular rate, Regular Rhythm, Normal S1, Normal S2, No murmurs Abdomen: Soft, Non Tender, Non-Distended, No Hepato-splenomegaly Extremities: No edema, Capillary Refill Less than 3 Seconds Skin: No rashes, No breakdown Musculoskeletal: No Tenderness to Palpation of Joints or Extremities Neurological: Cranial nerves II-XII grossly intact, Motor Exam 5/5 strength throughout, Sensory exam intact to light touch and pain Psych/Mental Status: Normal Affect, Appropriate Assessment & Plan Assessment/Plan (1) Sepsis without septic shock: (2) Acute febrile illness: (3) Weakness: PLAN: Plan #Sepsis without shock with gram-negative mike bacteremia * etiology is not clear. I am not sure he has gastroenteritis * CT of the abdomen showed nonspecific small bowel changes. It also showed a small nonobstructing left renal calculi. * Chest x-ray showed no acute cardiopulmonary pathology. COVID and flu are negative. * Will discontinue IV vancomycin and continue with only IV Zosyn pending finalization of his blood cultures * No urine cultures were obtained this admission but he did have E. coli in his urine in 09/10/2023 that was fairly sensitive * Blood cultures with gram-negative mike, family states that his issues began several weeks ago which could be consistent with translocation from his urinary source #History of lumbar spine injury with fusion * had L spine fusion a few years ago. * PT.OT On board. Fall precautions. #Debility and weakness due to lumbar spine fusion: as above. 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 * Has had intermittent urinary retention * follow up with urology on outpatient basis #Hypertension; lisinopril and HCTZ on hold for now as BP was running low. WIll continue holding and hydrate gently with IVF and monitor. #Hyperlipidemia: on statin #GERD; on PPI DVT: Lovenox Charges/Coding Visit Charges Inpatient E&M: 05899 Subs Hosp L2
[2023-09-26 15:30] VITALS: BP 111/60; PULSE 83; RESP 18; TEMP 36.5; O2SAT 98
[2023-09-26 21:00] VITALS: BP 117/58; PULSE 81; RESP 18; TEMP 36.4; O2SAT 98
[2023-09-26] MEDS: Atorvastatin Calcium 10 MG Tablet PO (21:16)
[2023-09-27] VITALS (7 sets, daily range): BP systolic 104–135; BP diastolic 51–69; PULSE 65–87; RESP 12–18; TEMP 36.9–37.8; O2SAT 97–100
[2023-09-27] MEDS: Piperacil/Tazobactam 3.375 GM in 0.9% Normal Saline (50mL MB+) 50 ML IV ×3 (05:41→21:15)
[2023-09-27 07:10] LABS: Absolute Lymphocyte Count 0.42 X10^3/uL (0.83-4.51); Absolute Neutrophil Count 4.4 X10^3/uL (2.0-7.7); Basophil# 0.03 X10^3/uL; Basophil% 0.6 % (0-1); Eosinophil# 0.09 X10^3/uL; Eosinophils% 1.8 % (0-5); Hematocrit 32.2 % (40-54); Hemoglobin 10.4 g/dL (13.0-16.5); Lymphocyte # 0.42 X10^3/ul (0.83-4.51); Lymphocyte % 8.2 % (19-41); Mean Corp Hgb Conc 32.3 g/dL (32-36); Mean Corpuscular Hgb 31.7 pg (27.0-32.0); Mean Corpuscular Volume 98.2 fL (80-94); Mean Platelet Vol. 9.2 fl (6.2-12.0); Monocyte# 0.19 X10^3/uL; Monocyte% 3.7 % (0-10); NRBC Flagged by Analyzer 0 % (0-5); Neutrophil # 4.38 X10^3/uL (2.7-7.7); Neutrophil % 85.5 % (47-70); POSITIVE DIFFERENTIAL YES; Platelet Count 123 K/mm3 (150-450); RBC Distribution Width CV 13.1 % (11.6-14.6); RBC Distribution Width SD 46.7 fl (35.1-43.9); Red Blood Count 3.28 M/mm3 (4.6-6.2); White Blood Count 5.1 K/mm3 (4.4-11.0)
[2023-09-27 07:12] LABS: Differential Indicated SCAN CRITERIA MET
[2023-09-27 07:25] LABS: Anion Gap 1 (5-15); BUN 17 mg/dL (7-18); BUN/Creat Ratio 21.4 RATIO (10-20); Calcium,Total 8.3 mg/dL (8.5-10.1); Chloride 110 mmol/L (98-107); EST Glomerular Filtration Rate 99 mL/min (>60); Est Glom Filt Rate - Afr Amer 120 mL/min (>60); Glucose 95 mg/dL (74-106); Potassium 3.8 mmol/L (3.5-5.1); Sodium Level 138 mmol/L (136-145)
[2023-09-27] MEDS: Enoxaparin 40 MG/0.4 ML Syringe SC (08:45)
[2023-09-27] MEDS: Polyethylene Glycol 3350 17 GM PACKET PO (08:46)
[2023-09-27] MEDS: Pantoprazole Sodium 40 MG Tablet PO (08:46)
[2023-09-27] MEDS: Tamsulosin HCl 0.4 MG Capsule 0.400000000000000022 MG PO (08:46)
[2023-09-27] MEDS: Finasteride 5 MG Tablet PO (08:46)
[2023-09-27] MEDS: Aspirin E.C. 81 MG Tablet PO (08:46)
[2023-09-27] MEDS: Senna Tablet 2 TABLET PO ×2 (08:47→21:19)
--- NOTE | 2023-09-27 10:23 | PN.HOSP_ITS ---
Subjective Subjective Doing well, no issues overnight. It does appear that this bacteremia could have been from his UTI back in August Objective Data Objective Data Vital Signs: Vital Signs Temp Pulse Resp BP Pulse Ox O2 Del Method 98.5 F 84 12 135/67 H 97 Room Air 09/27/23 08:43 09/27/23 08:43 09/27/23 08:43 09/27/23 08:43 09/27/23 08:43 09/27/23 08:43 Oxygen Delivery Method Room Air Weight: 164 lb 3.91 oz Body Mass Index (BMI) 22.8 Intake & Output: Intake and Output for Last 24 Hours 09/26/23 09/27/23 09/28/23 03:59 03:59 03:59 Intake Total 4488.74 / 4488.74 1368.75 / 1368.75 Output Total 650 / 650 350 / 350 Balance 3838.74 / 3838.74 1018.75 / 1018.75 Lab / Micro Data 09/27/23 06:55 09/27/23 06:55 Labs: Laboratory Results - last 24 hr 09/27/23 06:55: WBC 5.1, RBC 3.28 L, Hgb 10.4 L, Hct 32.2 L, MCV 98.2 H, MCH 31.7, MCHC 32.3, RDW Std Deviation 46.7 H, RDW Coeff of Ezequiel 13.1, Plt Count 123 L, MPV 9.2, Immature Gran % (Auto) 0.200, Neut % (Auto) 85.5 H, Lymph % (Auto) 8.2 L, Sandoval % (Auto) 3.7, Eos % (Auto) 1.8, Baso % (Auto) 0.6, Absolute Neuts (auto) 4.4, Absolute Lymphs (auto) 0.42 L, Nucleated RBC % 0, Differential Comment COMMENT, Sodium 138, Potassium 3.8, Chloride 110 H, Carbon Dioxide 27.0, Anion Gap 1 L, BUN 17, Creatinine 0.80, Estim Creat Clear Calc 77.60, Est GFR (MDRD) Af Amer 120, Est GFR (MDRD) Non-Af 99, BUN/Creatinine Ratio 21.4 H, Glucose 95, Calcium 8.3 L Micro: Microbiology 09/24/23 23:55 Blood Culture (Wb) - Anticubital Left Blood Culture - Preli minary GNR lactose floor coverer 09/25/23 05:45 Mucosa - Nasopharyngeal Respiratory Panel (PCR) - Final 09/24/23 21:00 Nasal Secretion SARS-CoV-2 & FLU Antigen (Rapid) - Final Physical Exam Narrative General: Alert, Oriented x3, Cooperative, No apparent distress HEENT: Atraumatic, PERRLA, EOMI, Normocephalic Oral: Moist Mucosa Neck: Supple, No JVD Lungs: Diminished, Normal air movement, No rhonchi, No wheeze, No rales Cardiovascular: Regular rate, Regular Rhythm, Normal S1, Normal S2, No murmurs Abdomen: Soft, Non Tender, Non-Distended, No Hepato-splenomegaly Extremities: No edema, Capillary Refill Less than 3 Seconds Skin: No rashes, No breakdown Musculoskeletal: No Tenderness to Palpation of Joints or Extremities Neurological: Cranial nerves II-XII grossly intact, Motor Exam 5/5 strength throughout, Sensory exam intact to light touch and pain Psych/Mental Status: Normal Affect, Appropriate Assessment & Plan Assessment/Plan (1) Sepsis without septic shock: (2) Acute febrile illness: (3) Weakness: PLAN: Plan 1. Sepsis ruled out with gram-negative mike bacteremia/debility and weakness secondary to lumbar spine fusion in the setting of infection/intermittent urinary retention * etiology is not clear. I am not sure he has gastroenteritis * CT of the abdomen showed nonspecific small bowel changes. It also showed a small nonobstructing left renal calculi. * Chest x-ray showed no acute cardiopulmonary pathology. COVID and flu are negative. * Will discontinue IV vancomycin and continue with only IV Zosyn pending finalization of his blood cultures * No urine cultures were obtained this admission but he did have E. coli in his urine in 09/10/2023 that was fairly sensitive * Blood cultures with gram-negative mike, family states that his issues began several weeks ago which could be consistent with translocation from his urinary source * I do recommend that he follow-up with urology as an outpatient as it is his urinary retention after spinal fusion I can potentially be precipitating his UTI, continue with Flomax and finasteride 2. History of lumbar spine injury with fusion * had L spine fusion a few years ago. * PT.OT On board. Fall precautions. 3. Hypertension/hyperlipidemia ? Blood pressures are stable, his blood pressure medications are on hold secondary to his transient hypotension though he is still less than 120 systolic generally during his hospitalization ? We will monitor make adjustments as necessary ? Continue with statin 4. GERD ? Stable ? On PPI DVT: Lovenox Charges/Coding Visit Charges Inpatient E&M: 57299 Subs Hosp L2
--- NOTE | 2023-09-27 11:50 | CASEMGMT ---
RN CM Face to Face with patient for initial transition planning/care coordination assessment. RN CM introduced self and role at [facility]. Patient lying in bed, alert and confused at time, at bedside. Patient has dementia. Patient and willing to participate in assessment and is able to answer all questions appropriately. Care providers, pharmacy, and demographics verified. Patient wishes to discharge home, will monitor for HHC vs SNF. Patient and state they have no further needs or concerns at this time. CM to follow for discharge planning needs that may arise. PCP: Josef Specialists: [facility]; Kodi, drug abuse worker; Dayna, Urologist [facility] Preferred Pharmacy: [facility] [employer] Insurance: [employer] Prescription Benefit: yes Living Will/HPOA: yes, Natty Tariq LNOK: Living Arrangements: Patient lives with in a 2 story home with stair lift to second floor and basement. Patient was independent at home. Transportation: DME/HHC: Patient has shower chair, raised toilet, cane, walker, and grab bars at home. Patient has had HHC in the past but cannot recall. Patient has been to [facility] in the past. Will monitor progress with therapy and antibiotics at discharge. Disposition Plan: anticipate HHC vs SNF pending progress with therapy and course of treatment. Smiley AGUILERA, RN, CM
[2023-09-27] MEDS: 0.9% Saline Lock 10 ML Syringe IV (13:53)
[2023-09-27] MEDS: Acetaminophen 325 MG Tablet 650 MG PO (15:36)
[2023-09-27] MEDS: Atorvastatin Calcium 10 MG Tablet PO (21:19)
[2023-09-28 04:45] VITALS: BP 123/69; PULSE 70; RESP 18; TEMP 36.9; O2SAT 99
[2023-09-28] MEDS: Piperacil/Tazobactam 3.375 GM in 0.9% Normal Saline (50mL MB+) 50 ML IV (05:14)
[2023-09-28 05:52] LABS: Absolute Lymphocyte Count 1.01 X10^3/uL (0.83-4.51); Absolute Neutrophil Count 3.2 X10^3/uL (2.0-7.7); Basophil# 0.02 X10^3/uL; Basophil% 0.4 % (0-1); Eosinophils% 2.1 % (0-5); Hematocrit 33.1 % (40-54); Hemoglobin 10.3 g/dL (13.0-16.5); Lymphocyte # 1.01 X10^3/ul (0.83-4.51); Lymphocyte % 20.8 % (19-41); Mean Corp Hgb Conc 31.1 g/dL (32-36); Mean Corpuscular Hgb 30.3 pg (27.0-32.0); Mean Corpuscular Volume 97.4 fL (80-94); Mean Platelet Vol. 9.5 fl (6.2-12.0); Monocyte# 0.51 X10^3/uL; Monocyte% 10.5 % (0-10); NRBC Flagged by Analyzer 0 % (0-5); Platelet Count 134 K/mm3 (150-450); RBC Distribution Width CV 13.1 % (11.6-14.6); RBC Distribution Width SD 46.9 fl (35.1-43.9); White Blood Count 4.9 K/mm3 (4.4-11.0)
[2023-09-28 06:46] LABS: Anion Gap 3 (5-15); BUN 16 mg/dL (7-18); BUN/Creat Ratio 18.7 RATIO (10-20); Calcium,Total 8.3 mg/dL (8.5-10.1); Chloride 110 mmol/L (98-107); Creatinine, Serum 0.86 mg/dL (0.70-1.30); EST Glomerular Filtration Rate 91 mL/min (>60); Est Glom Filt Rate - Afr Amer 111 mL/min (>60); Estimated Creatinine Clearance 72.19 ml/min; Glucose 91 mg/dL (74-106); Potassium 3.7 mmol/L (3.5-5.1); Sodium Level 139 mmol/L (136-145)
[2023-09-28 08:45] VITALS: BP 115/70; PULSE 79; RESP 12; TEMP 36.5; O2SAT 100
[2023-09-28] MEDS: Pantoprazole Sodium 40 MG Tablet PO (08:52)
[2023-09-28] MEDS: Tamsulosin HCl 0.4 MG Capsule 0.400000000000000022 MG PO (08:52)
[2023-09-28] MEDS: Polyethylene Glycol 3350 17 GM PACKET PO (08:52)
[2023-09-28] MEDS: Aspirin E.C. 81 MG Tablet PO (08:52)
[2023-09-28] MEDS: Finasteride 5 MG Tablet PO (08:52)
[2023-09-28] MEDS: Senna Tablet 2 TABLET PO (08:52)
--- NOTE | 2023-09-28 10:45 | DCINST_ITS ---
Discharge Instructions Diet Discharge Diet: Low fat / Low cholesterol Activity Discharge Activity: Return to Normal Activity Dressing / Incision Call your doctor if you observe: Fever of 101 or Higher, Shortness of breath, Dizziness, Fainting spells, Swelling in the ankles, Chest pain and Increased palpitations (irregular heartbeat) Follow Up Care Test Results: Test results from this visit will be discussed in further detail at your follow- up appointment, if applicable. Discharge Plan Admission Admit Date/Time: 09/25/23 00:52 Attending Provider: Christoph Kilgore Primary Care Provider: Francisco Bahena Consulting Providers: Cesar Orona; Elyssa Enrique Discharge Orders/Prescriptions Prescriptions: New cefdinir 300 mg capsule 300 mg PO BID 12 Days Qty: 24 0RF Continued metronidazole 0.75 % cream 1 applic TOPICAL BID acetaminophen 500 MG tablet 500 mg PO PRN PRN (Reason: Pain) tamsulosin 0.4 MG capsule 0.4 mg PO DAILY Patient Comments: TAKE ONE CAPSULE BY MOUTH EVERY DAY hydrochlorothiazide 12.5 MG capsule 12.5 mg PO DAILY Patient Comments: finasteride 5 MG tablet 5 mg PO DAILY Patient Comments: TAKE 1 TABLET BY MOUTH EVERY DAY doxycycline hyclate 20 mg tablet 20 mg PO BID Patient Comments: Rx Instructions: takes at noon on Tue-Tue-Tue trazodone 50 mg tablet 25 mg PO QHS aspirin [Rika Low Dose Aspirin] 81 mg Tablet,Delayed Release (Dr/Ec) 81 mg PO DAILY multivitamin Tablet 1 tab PO DAILY atorvastatin 10 mg tablet 1 tab PO QHS Patient Comments: TAKE 1 TABLET BY MOUTH DAILY AT BEDTIME. FOR CHOLESTEROL furosemide [Lasix] 40 mg tablet 20 mg PO PRN PRN (Reason: Edema) pantoprazole 40 mg Tablet,Delayed Release (Dr/Ec) 40 mg PO DAILY docusate sodium 250 mg Capsule 250 mg PO BID lisinopril 5 mg tablet 5 mg PO DAILY d-mannose Powder 1 ea PO DAILY Rx Instructions: 1/4 teaspoon on cereal each am. Dupixent Pen 300 mg/2 mL pen injector 300 mg subcut .every two weeks Discontinued nitrofurantoin monohyd/m-cryst [Macrobid] 100 mg capsule 100 mg PO Q12H 5 Days Qty: 10 0RF Rx Instructions: must administer with a meal/food Referrals / Follow Up: Francisco Bahena MD [Primary Care Provider] - Within 1 Week Disposition Disposition (needs filled in before D/C Order can be placed): Home, Self Care
--- NOTE | 2023-09-28 10:49 | DS.PCM_ITS ---
Providers Date of Admission: 09/25/23 Primary Care Physician: Dr. Francisco Bahena MD Reason For Visit: FEVER OF UNKNOWN ORIGIN, WEAKNESS Diagnosis Discharge Diagnosis (1) Sepsis without septic shock: Status: Acute Code(s): A41.9 - Sepsis, unspecified organism (2) Acute febrile illness: Status: Acute Code(s): R50.9 - Fever, unspecified (3) Weakness: Status: Acute Code(s): R53.1 - Weakness Medications at Discharge Home Medications acetaminophen 500 mg tablet 500 mg PO PRN PRN Pain 04/03/17 finasteride 5 mg tablet 5 mg PO DAILY 04/03/17 hydrochlorothiazide 12.5 mg capsule 12.5 mg PO DAILY 04/03/17 tamsulosin 0.4 mg capsule 0.4 mg PO DAILY 04/03/17 doxycycline hyclate 20 mg tablet 20 mg PO BID 03/13/19 metronidazole 0.75 % topical cream 1 applic topical BID 07/16/19 aspirin 81 mg tablet,delayed release (Rika Low Dose Aspirin) 81 mg PO DAILY 01/28/21 trazodone 50 mg tablet 25 mg PO QHS 01/28/21 multivitamin 1 tab PO DAILY 05/18/21 atorvastatin 10 mg tablet 1 tab PO QHS 05/03/22 docusate sodium 250 mg capsule 250 mg PO BID 05/03/22 furosemide 40 mg tablet (Lasix) 20 mg PO PRN PRN Edema 05/03/22 pantoprazole 40 mg tablet,delayed release 40 mg PO DAILY 05/03/22 d-mannose 1 ea PO DAILY 09/24/23 dupilumab 300 mg/2 mL subcutaneous pen injector (Dupixent) 300 mg subcut .every two weeks 09/24/23 lisinopril 5 mg tablet 5 mg PO DAILY 09/24/23 cefdinir 300 mg capsule 300 mg PO BID 12 days #24 caps 09/28/23 Hospital Course Operations None Procedures None Summary of Care Provided Minutes Spent on Discharge: 37 Hospital Course: Per HPI: JAVIER BOND, is a 82 M who presented to [facility] ED on 09/25/2023 with episodes of fevers and rigors at home. Patient seen at bedside in the ED, present. Patient was sitting up comfortably in bed, conversing normally, in no acute distress. Patient has history of kidney stones with frequent urinary tract infections, follows outpatient with urology. Was seen in the ED on 09/10/2023 with left lower quadrant abdominal pain. UA was consistent with infection, but CT abdomen pelvis showed no concern for kidney stones or for hydronephrosis. CT scan did show moderate degree of constipation. Patient was discharged home from the ED on Keflex and instructed to take stool softeners to assist with his constipation. Patient completed 10-day course of Keflex but continued to have left lower quadrant pain, so he had a UA checked by his PCP office again around 3 to 4 days ago and it still appeared infectious. Patient was started on Macrobid at that time. Patient then developed subjective fevers and rigors at home on the afternoon of 09/24. States he had several episodes of a significant degree of shaking, and also developed nausea with a few episodes of vomiting, so they called EMS to bring him to the ED. Since arrival to the ED, patient has continued to have some shaking/rigors. Patient currently does feel somewhat improved from arrival after receiving IV fluids and doses of Zofran and Tylenol. However, patient still has significant shaking and some associated lightheadedness and weakness with ambulation. 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 Since that time, patient has had fairly persistent constipation and difficulty with stooling. Patient takes stool softeners at home, does not take MiraLAX or senna, does not use suppositories regularly. Does try to take in lots of fiber with his diet. Patient states that his bowel movements recently have been about his normal, meaning he has had fairly hard stools with a moderate amount of difficulty with expelling his stool. He notably denies any significant abdominal pain or tenderness during that time. His pain has consistently been in the left lower quadrant. Previously had a left inguinal hernia repair, but CT scans have been negative for recurrent hernia. Patient otherwise denies any acute concerns at this time. Hospital course: 1. E. coli bacteremia with debility and weakness/intermittent urinary retention?82-year-old male presents to the hospital with fevers and rigors at home. He was found to have 1 set of blood cultures come back positive for E. coli with resistance patterns similar to the UTI E. coli he had back in the middle of August. His states that a lot of his symptoms started around that UTI and have progressively gotten worse. It is likely that he developed bacteremia back in the middle of August that was masked by the antibiotics and then progressively got worse. He was on Zosyn since admission and sensitivities came back and he is sensitive to Rocephin, he does have a rash allergy to fluoroquinolones therefore will discharge for another 12 days on cefdinir 300 mg p.o. twice daily. He is ambulatory around the room on his own with a walker so we will plan to discharge him home today. I discussed with him and his the plan for discharge and they both expressed understanding of the risk benefits of going home and would like to go home today. Given his urinary retention I do recommend he follow-up with his own [facility] urologist on discharge. 2. Hypertension, hyperlipidemia, GERD, history of lumbar spine fusion after injury are all chronic medical conditions which complicate his care. His home medications were continued where appropriate Physical Exam Narrative General: Alert, Oriented x3, Cooperative, No apparent distress HEENT: Atraumatic, PERRLA, EOMI, Normocephalic Oral: Moist Mucosa Neck: Supple, No JVD Lungs: Diminished, Normal air movement, No rhonchi, No wheeze, No rales Cardiovascular: Regular rate, Regular Rhythm, Normal S1, Normal S2, No murmurs Abdomen: Soft, Non Tender, Non-Distended, No Hepato-splenomegaly Extremities: No edema, Capillary Refill Less than 3 Seconds Skin: No rashes, No breakdown Musculoskeletal: No Tenderness to Palpation of Joints or Extremities Neurological: Cranial nerves II-XII grossly intact, Motor Exam 5/5 strength throughout, Sensory exam intact to light touch and pain Psych/Mental Status: Normal Affect, Appropriate Weight / BMI Weight Weight: 164 lb 3.91 oz Body Mass Index (BMI) 22.8 ABG / Lab / Microbiology Data 09/28/23 05:26 09/28/23 05:26 Laboratory: Laboratory Results - last 24 hr 09/28/23 05:26: WBC 4.9, RBC 3.40 L, Hgb 10.3 L, Hct 33.1 L, MCV 97.4 H, MCH 30.3, MCHC 31.1 L, RDW Std Deviation 46.9 H, RDW Coeff of Ezequiel 13.1, Plt Count 134 L, MPV 9.5, Immature Gran % (Auto) 0.200, Neut % (Auto) 66.0, Lymph % (Auto) 20.8, Routt % (Auto) 10.5 H, Eos % (Auto) 2.1, Baso % (Auto) 0.4, Absolute Neuts (auto) 3.2, Absolute Lymphs (auto) 1.01, Nucleated RBC % 0, Sodium 139, Potassium 3.7, Chloride 110 H, Carbon Dioxide 26.0, Anion Gap 3 L, BUN 16, Creatinine 0.86, Estim Creat Clear Calc 72.19, Est GFR (MDRD) Af Amer 111, Est GFR (MDRD) Non-Af 91, BUN/Creatinine Ratio 18.7, Glucose 91, Calcium 8.3 L Microbiology: Microbiology 09/24/23 23:55 Blood Culture (Wb) - Anticubital Left Blood Culture - Final Escherichia coli 09/24/23 00:20 Blood Culture (Wb) - Anticubital Left Blood Culture - Preliminary No growth in 48 hours. 09/25/23 05:45 Mucosa - Nasopharyngeal Respiratory Panel (PCR) - Final 09/24/23 21:00 Nasal Secretion SARS-CoV-2 & FLU Antigen (Rapid) - Final D/C Instructions Discharge Diet: Low fat / Low cholesterol Call your doctor if you observe: Fever of 101 or Higher, Shortness of breath, Dizziness, Fainting spells, Swelling in the ankles, Chest pain and Increased palpitations (irregular heartbeat) Meaningful Use Info Meaningful Use Diagnoses (Choose all that apply): None applicable Discharge Plan Admission Admit Date/Time: 09/25/23 00:52 Attending Provider: Christoph Kilgore Primary Care Provider: Francisco Bahena Consulting Providers: Cesar Orona; Elyssa Enrique Discharge Orders/Prescriptions Prescriptions: New cefdinir 300 mg capsule 300 mg PO BID 12 Days Qty: 24 0RF Continued metronidazole 0.75 % cream 1 applic TOPICAL BID acetaminophen 500 MG tablet 500 mg PO PRN PRN (Reason: Pain) tamsulosin 0.4 MG capsule 0.4 mg PO DAILY Patient Comments: TAKE ONE CAPSULE BY MOUTH EVERY DAY hydrochlorothiazide 12.5 MG capsule 12.5 mg PO DAILY Patient Comments: finasteride 5 MG tablet 5 mg PO DAILY Patient Comments: TAKE 1 TABLET BY MOUTH EVERY DAY doxycycline hyclate 20 mg tablet 20 mg PO BID Patient Comments: Rx Instructions: takes at noon on Mon-Wed-Tue trazodone 50 mg tablet 25 mg PO QHS aspirin [Rika Low Dose Aspirin] 81 mg Tablet,Delayed Release (Dr/Ec) 81 mg PO DAILY multivitamin Tablet 1 tab PO DAILY atorvastatin 10 mg tablet 1 tab PO QHS Patient Comments: TAKE 1 TABLET BY MOUTH DAILY AT BEDTIME. FOR CHOLESTEROL furosemide [Lasix] 40 mg tablet 20 mg PO PRN PRN (Reason: Edema) pantoprazole 40 mg Tablet,Delayed Release (Dr/Ec) 40 mg PO DAILY docusate sodium 250 mg Capsule 250 mg PO BID lisinopril 5 mg tablet 5 mg PO DAILY d-mannose Powder 1 ea PO DAILY Rx Instructions: 1/4 teaspoon on cereal each am. Dupixent Pen 300 mg/2 mL pen injector 300 mg subcut .every two weeks Discontinued nitrofurantoin monohyd/m-cryst [Macrobid] 100 mg capsule 100 mg PO Q12H 5 Days Qty: 10 0RF Rx Instructions: must administer with a meal/food Referrals / Follow Up: Francisco Bahena MD [Primary Care Provider] - Within 1 Week Disposition Disposition (needs filled in before D/C Order can be placed): Home, Self Care Charges/Coding Visit Charges Inpatient E&M: 34458 Disch Hosp >30min
--- NOTE | 2023-09-28 11:10 | CASEMGMT ---
Patient has order for discharge. RN CM in to discuss needs at discharge. Patient and deny needs or help at discharge. Patient ambulating SBA in room. Patient and deny further questions or concerns at this time.
--- NOTE | 2023-09-28 11:54 | PHA.DC_ITS ---
Pharmacy [facility] has performed discharge medication reconciliation and counseling for this patient. 1. CEFDINIR 300MG PO BID X 12 DAYS The patient's discharge medication list was reviewed for discrepancies and discrepancies were resolved. The patient was counseled on the following discharge medications and changes in medications for homegoing were reviewed. The Reason for Use, instructions for use, and potential side effects were reviewed for all new medications. The patient's questions regarding all of their medications were answered. The patient was able to verbally demonstrate an understanding of their discharge medications. Medications at Discharge Home Medications acetaminophen 500 mg tablet 500 mg PO PRN PRN Pain 04/03/17 finasteride 5 mg tablet 5 mg PO DAILY prostate 04/03/17 hydrochlorothiazide 12.5 mg capsule 12.5 mg PO DAILY diuretic 04/03/17 tamsulosin 0.4 mg capsule 0.4 mg PO DAILY prostate 04/03/17 doxycycline hyclate 20 mg tablet 20 mg PO BID infection 03/13/19 metronidazole 0.75 % topical cream 1 applic topical BID skin health 07/16/19 aspirin 81 mg tablet,delayed release (Rika Low Dose Aspirin) 81 mg PO DAILY heart health 01/28/21 trazodone 50 mg tablet 25 mg PO QHS sleep 01/28/21 multivitamin 1 tab PO DAILY vitamin 05/18/21 atorvastatin 10 mg tablet 1 tab PO QHS cholesterol 05/03/22 docusate sodium 250 mg capsule 250 mg PO BID infection 05/03/22 furosemide 40 mg tablet (Lasix) 20 mg PO PRN PRN Edema 05/03/22 pantoprazole 40 mg tablet,delayed release 40 mg PO DAILY reflux 05/03/22 d-mannose 1 ea PO DAILY 09/24/23 dupilumab 300 mg/2 mL subcutaneous pen injector (Keaton Rowixent) 300 mg subcut .every two weeks skin health 09/24/23 lisinopril 5 mg tablet 5 mg PO DAILY blood pressure 09/24/23 cefdinir 300 mg capsule 300 mg PO BID 12 days #24 caps 09/28/23
== END 2023-09-28 12:39 | disposition home or self-care (01) | DRG 872 ==
LOC: ED 23:40 → PCU 09-25 01:11
PROVIDERS: Physician Assistant; Student in an Organized Health Care Education/Training Program; Admitting Provider Hospitalist; Emergency Provider Emergency Medicine; PCP Family Medicine; Visit Provider Family Medicine
DX: R78.81 Bacteremia (principal); B96.20 Unspecified Escherichia coli [E. coli] as the cause of diseases classified elsewhere; I10 Essential (primary) hypertension; E78.5 Hyperlipidemia, unspecified; K21.9 Gastro-esophageal reflux disease without esophagitis; K59.00 Constipation, unspecified; N40.1 Benign prostatic hyperplasia with lower urinary tract symptoms; R33.8 Other retention of urine; Z98.1 Arthrodesis status; Z90.49 Acquired absence of other specified parts of digestive tract; Z79.82 Long term (current) use of aspirin; Z79.899 Other long term (current) drug therapy; Z87.440 Personal history of urinary (tract) infections; Z87.442 Personal history of urinary calculi; Z80.0 Family history of malignant neoplasm of digestive organs
CPT/HCPCS: 36415; 71045; 74176; 80048; 81001; 83605; 84484; 85025; 85027; 87040; 87077; 87186; 87428; 87633; 93005; 94668; 97162; 97165; 97530; 97535; 99284; J7030; J7040; J7050; J7120; A4216; J2405

== ENCOUNTER 2024-07-12 16:00 | Outpatient (RCR) | payer MEDICARE, SELFPAY ==
--- NOTE | 2024-06-27 18:13 | HP.OTEVAL ---
Patient's Visit Information Visit Information Visit Information: JAVIER BOND is a 83 year old M, referred to Occupational Therapy by FRANCINE Lacy, with a diagnosis of B hand pain. Date of Evaluation: 06/27/24 Occupational Therapist: Stephany Staley Subjective Subjective: This 83 year old male with dx of B hand pain. pt noticed change in hand function and pain approx 6 months ago. pt is limited in functional abilities due to pain however believed strength has not changed. 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 Pt is R handed. denies numbness or tingling of hands. pt has had surgery to B thumbs years ago however unable to recall what for. pt is currently limited in day to day tasks due to pain in B hands indicating need for OT at this time. Pain B hand: Current Pain Intensity: 4 Objective Objective/Observation: pt arrives using rollator to complete mobility back to room. pt with muscle atrophy to han aspect of hand as well as web space. no swelling noted in hands. L hand with old scar from incision of thumb ROM Shoulder: wfl Forearm: wfl Wrist: B WFL Opposition: B WFL MP: wfl PIP: wfl DIP: wfl ROM Comments: L wrist pain with extension tightness with hook fist Strength Therapy Teacher: L 45# R 60# Lateral Pinch: L 0# R5# Tripod Pinch: L0# R 8# Edema Other: none Sensation Sensation Comments: denies Quick DASH-Disab of Arm,Shoulder& Hand Quick DASH Score: 56.8175 Goals Goal:: pt will improve L public transit specialist strength equal to greater than R side (60#) in order to maximize I in self care tasks pt will improve L lateral pinch strength equal to or greater than R side (5#) in order to maximize I in self care and IADL tasks pt will improve L tripod pinch strength equal to or greater than R side (8#) in order to maximize I in self care and IADL tasks Goal:: pt will report decrease pain of 1/10 or less B hands during functional tasks Goal:: pt will verbalize/ demonstrate 100% accuracy in proper joint positioning and protection to decrease pain during daily functional tasks Goal:: pt will improve quick dash score by 10 points or more (56.81) in order to maximize overall functional use of B hands Goal:: pt will verbalize/ demonstrate at least x2 adaptive/ compensatory strategies/ tools to utilize daily in order to maximize I in day to day tasks (such as built up handle of rollator) pt will verbalize/ demonstrate 100% accuracy and carryover in recommended bracing as needed for pain management Rehabilitation General Assessment: This 83 year old male arrives with order for B hand pain. Pt is limited in daily functional tasks due to pain in B hands. pt B hand AROM is within normal limits however has difficulty completing tasks due to movement causing pain. pt does demonstrate decreased L hand and pinch strength compare to R as well as muscle wasting in hand. pt would benefit from OT services 1-2x a week for 4-6 weeks in order to decrease pain and improve functional use of B hands day to day. Rehabilitation Potential: Good Anticipated Interventions Anticipated Interventions: A/AAROM/PROM, Strengthening, Triggerpoint Release, Modalities, Orthoses, Joint Protection/Energy Conservation, Education re assistive Equipment, Education re Diagnosis and Home Program Visit Plan Frequency: 1-2x /Week Duration: 4-6 Weeks General Plan: AROM/AAROM/PROM trigger point release pain management bracing activity modification TEXT: Thank you for the opportunity to evaluate your patient. For Medicare and Medicare HMO plans, please review the plan of care and approve it. It will need to be FAXED BACK to us at [phone] for Medicare purposes. Please let me know if there are questions or concerns regarding this plan of care. Physician Signature: Date:
--- NOTE | 2024-09-25 11:02 | HP.OT.NRP ---
Patient Information Patient Information: JAVIER BOND was seen in my office for initial evaluation on 06/27/24. The following Plan of Care was established for this patient: POC Established Initial Frequency: 1-2x /Week Initial Duration: 4-6 Weeks Plan: AROM/AAROM/PROM pain modalities tendon glide strengthening Anticipated Interventions Anticipated Interventions: A/AAROM/PROM, Strengthening, Triggerpoint Release, Modalities, Orthoses, Joint Protection/Energy Conservation, Education re assistive Equipment, Education re Diagnosis and Home Program Last Seen Last Seen: This patient was last seen in our office 07/12/24. Pertinent comments regarding their Occupational therapy will appear below: This 83 year old male seen by OT for dx of B hand pain. Pt seen for pain management ed in joint protection, positioning, modifications as well as stretch and strengthening. discharge at this time due to time lapse in services. At this point I will be discontinuing this patient from occupational therapy. I would be happy to see this patient again in the future if found appropriate by the physician. Thank you! Stephany Staley
== END 2024-07-12 19:00 | disposition home or self-care (01) ==
LOC: OT 16:00
PROVIDERS: PCP Family Medicine; Referring Provider Nurse Practitioner Family; Visit Provider Nurse Practitioner Family
DX: M79.641 Pain in right hand (principal); M79.642 Pain in left hand
CPT/HCPCS: 97035; 97110; 97140; 97166; 97530

== ENCOUNTER → 2024-08-29 | Outpatient (CLI) | payer MEDICARE, SELFPAY ==
--- NOTE | 2024-08-29 14:06 | NEURO ---
NCS and/or EMG Patient Report Ordering Doctor: Francisco Bahena DATE OF SERVICE: 08/29/24 Eric presents with complaints of bilateral leg weakness and numbness. He has a history of lower back fusion. Electrodiagnostic findings: Left peroneal motor nerve demonstrates normal distal latency with reduced amplitude and reduced conduction velocity. Right peroneal motor nerve demonstrates normal distal latency with reduced amplitude and reduced conduction velocity. Tibial motor response demonstrates normal distal latency on the left side with reduced amplitude and normal conduction velocity. Right tibial motor nerve demonstrates prolonged latency with reduced amplitude and normal conduction velocity. Prolonged tibial and peroneal F?waves. Prolonged H?reflex bilaterally. Sensory responses were not obtainable. Needle EMG testing was performed in the lower limbs of motor units of increased amplitude and duration noted bilaterally in the anterior tibialis and gastrocnemius. There is decreased recruitment pattern in the right vastus medialis. Electrodiagnostic impression: This is an abnormal study in the lower limbs 1. 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 There is a combination of axonal loss and demyelination. 2. No electrodiagnostic evidence is noted for lumbosacral radiculopathy. Multi Select Codes Neurology Neurology Interp Codes: 48254-73 Musc test done w/n test comp (interp) (2) and 43887-00 Nrv cndj test 9-10 studies (interp)
== END | disposition home or self-care (01) ==
LOC: PSN 12:19
PROVIDERS: PCP Family Medicine; Referring Provider Family Medicine; Visit Provider Family Medicine
DX: R20.0 Anesthesia of skin (principal); R20.2 Paresthesia of skin
CPT/HCPCS: 95886; 95911

== ENCOUNTER 2025-01-08 10:33 | Inpatient (IN) | payer MEDICARE, SELFPAY ==
[2025-01-08 10:35] VITALS: BP 116/70; PULSE 57; RESP 18; TEMP 36.6; O2SAT 100; BMI 22.6
--- NOTE | 2025-01-08 10:53 | MRI_ITS ---
PROCEDURE: SPINE LUMBAR (ROUTINE) 01/08/2025 REASON FOR EXAM: PAIN, SUDDEN BLE WEAKNESS TECHNIQUE: Multiplanar multisequential imaging was performed without IV contrast administration. COMPARISON: X-ray earlier today FINDINGS: Vertebrae: No acute fracture. Alignment: Moderate dextroscoliosis centered at centered at L2. Status post transpedicular fixation from L3-S1 with anatomic alignment. Conus Medullaris: T12/L1 L1-2: 5 mm of retrolisthesis of L1 on L2 with a mild broad disc protrusion produces moderate spinal stenosis and moderate bilateral neural foraminal stenosis. L2-3: 2 mm retrolisthesis of L2 on L3 with a mild bilobed disc protrusion produces moderate spinal stenosis and moderate bilateral neural foraminal stenosis. L3-4: Status post posterior decompression and transpedicular fixation with anatomic alignment and no spinal stenosis or neural foraminal stenosis. L4-5: Status post posterior decompression and transpedicular fixation with anatomic alignment and no spinal stenosis or neural foraminal stenosis. L5-S1: Status post posterior decompression and transpedicular fixation with anatomic alignment no spinal stenosis or neural foraminal stenosis. Sacrum: Unremarkable. MRI/Spine Lumbar (Routine) IMPRESSION: Postsurgical changes, dextroscoliosis, and degenerative disc disease as describ ed above. Reading Location: [id number]
--- NOTE | 2025-01-08 10:55 | EKG12_ITS ---
Test Reason : Blood Pressure : */* mmHG Vent. Rate : 56 BPM Atrial Rate : 56 BPM P-R Int : 204 ms QRS Dur : 96 ms QT Int : 436 ms P-R-T Axes : 72 -4 52 degrees QTcB Int : 420 ms Sinus bradycardia Otherwise normal ECG Confirmed by Eric Sam ([id number]), mapping editor PATRICE SALDANA ([id number]) on 01/11/2025 6:45:38 AM Referred By: DULCE Confirmed By: Eric Sam
--- NOTE | 2025-01-08 10:55 | EX.ED.DYSGE1 ---
HPI History of Present Illness Chief Complaint: Weakness Informant: patient, spouse/S.O. and EMS Narrative Narrative: 84-year-old male about an hour prior to arrival states he was using his walker in his house suddenly his legs felt weak and he felt like he could not support himself anymore. He was using his arms to hold himself up with his walker without falling but he felt like he was going to go down so he was yelling for his who came to help him and states that she found him still standing but barely, holding onto his walker with his arms, and she helped lower him to the ground without injury. He was not able to get up because his legs are too weak, and so EMS was called to bring him to the ED. He denies any other prodromal symptoms; he denies any acute pain although he has chronic low back pain, he states it is unchanged for the past 4 years since his fusion surgery, he denies any abdominal pain, recent illness, dyspnea, lightheadedness, headache. He states chronically with his back, he gets some sciatica down his right leg, may be some mild weakness, but has never had anything like this on both sides. He states the right 1 feels worse as it usually is his bad side. He denies any numbness. He denies any bowel or bladder dysfunction today. He denies saddle anesthesia or numbness elsewhere. [facility] Medical History Left inguinal hernia Groin pain Inguinal hernia bilateral, non-recurrent Right inguinal hernia History of kidney stones History of hiatal hernia Abdominal pain BPH (benign prostatic hyperplasia) Arthritis History of back problems Hypertension Home Medications ?Medication ?Instructions ?Recorded ?Last Taken ?Type acetaminophen 500 mg tablet 1,000 mg PO PRN Pain 04/03/17 Unknown History hydrochlorothiazide 12.5 mg capsule 12.5 mg PO DAILY diuretic 04/03/17 01/07/25 History doxycycline hyclate 20 mg tablet 20 mg PO BID infection 03/13/19 01/07/25 History metronidazole 0.75 % topical cream 1 applic topical DAILY skin health 07/16/19 01/07/25 History aspirin 81 mg tablet,delayed 81 mg PO QHS heart health 01/28/21 01/07/25 History release (Rika Low Dose Aspirin) multivitamin 1 tab PO DAILY vitamin 05/18/21 01/07/25 History pantoprazole 40 mg tablet,delayed 40 mg PO DAILY reflux 05/03/22 01/07/25 History release d-mannose 1 ea PO DAILY 09/24/23 01/07/25 History dupilumab 300 mg/2 mL subcutaneous 300 mg subcut .COMPLEX skin health 09/24/23 Unknown History pen injector (Dupixent) lisinopril 5 mg tablet 5 mg PO DAILY blood pressure 09/24/23 Unknown History Held on 01/08/25. Instructions: MD Ordered BACLOFEN SUPPOSITORY 1 supp OTHER DAILY CONSITPATION 01/08/25 Unknown History Lactobacillus acidophilus 10 80 mmu cells PO DAILY 01/08/25 01/07/25 History billion cell capsule (NewFlora) donepezil 5 mg tablet 10 mg PO DAILY 01/08/25 01/07/25 History furosemide 20 mg tablet 20 mg PO DAILY 01/08/25 01/07/25 History guaifenesin 600 mg tablet, 600 mg PO BID 01/08/25 01/07/25 History extended release 12 hr (Mucinex) melatonin 5 mg tablet 5 mg PO QHS 01/08/25 01/07/25 History memantine 10 mg tablet 10 mg PO BID 01/08/25 01/07/25 History methenamine hippurate 1 gram tablet 1 g PO BID 01/08/25 01/07/25 History plecanatide 3 mg tablet (Trulance) 3 mg PO DAILY 01/08/25 Unknown History Held on 01/08/25. Instructions: MD Ordered polyethylene glycol 3350 17 17 g PO DAILY 01/08/25 01/07/25 History gram/dose oral powder (ClearLax) sertraline 25 mg tablet 25 mg PO DAILY 01/08/25 01/07/25 History trazodone 100 mg tablet 100 mg PO QHS 01/08/25 01/07/25 History triamcinolone acetonide topical DAILY PRN itching 01/08/25 01/07/25 History Allergy/AdvReac Type Severity Reaction Status Date / Time Iodinated Contrast Media Allergy Hives Verified 01/08/25 10:39 (CONTRASTS) azelaic acid (From Finacea) AdvReac Rash Verified 01/08/25 10:39 levofloxacin AdvReac Rash Verified 01/08/25 10:39 meloxicam (From Mobic) AdvReac Nausea Verified 01/08/25 10:39 misoprostol (From Cytotec) AdvReac Nausea Verified 01/08/25 10:39 nabumetone (From Relafen) AdvReac Nausea Verified 01/08/25 10:39 NSAIDS (Non-Steroidal AdvReac Nausea Verified 01/08/25 10:39 Anti-Inflamma sulfamethoxazole (From AdvReac Nausea Verified 01/08/25 10:39 Bactrim) terbinafine AdvReac Nausea Verified 01/08/25 10:39 trimethoprim (From Bactrim) AdvReac Nausea Verified 01/08/25 10:39 valdecoxib (From Bextra) AdvReac Other Verified 01/08/25 10:39 Family History Father Colon cancer Mother Cancer lung Hypertension Brother Cancer Family History no significant family his Surgical History History of left inguinal hernia repair (~07/18/19) History of right inguinal hernia repair History of colonoscopy (~02/2019) history repair left thumb History of hemorrhoidectomy History of bilateral cataract extraction history ureteral stent insertion History of laparoscopic cholecystectomy history lap hiatal hernia repair Hx of repair of right rotator cuff Hx of repair of left rotator cuff history exacorporeal shock wave lithrotripsy Social History household members: spouse Smoking Status: Never smoker alcohol intake: current alcohol intake frequency: a few times a month substance use type: does not use ROS ROS ED Constitutional Constitutional ED: Denies chills or fever(s) Eyes Eyes: Denies change in vision or diplopia ENT ENT ED: Denies rhinorrhea or sore throat Cardiovascular Cardiovascular: Denies chest pain or palpitations Respiratory/Chest Respiratory/Chest: Denies cough or dyspnea Gastrointestinal Gastrointestinal: Denies abdominal pain, constipation, fecal incontinence, nausea or vomiting Genitourinary Genitourinary ED: Reports other Details: no urinary retention ; Denies abdominal discomfort or urinary incontinence Musculoskeletal Musculoskeletal: Reports as per HPI and back pain; Denies neck pain Integumentary Denies rash or wounds Neurologic Neurologic: Reports weakness; Denies headache(s) or paresthesias Psychiatric Psychiatric: Denies anxiety or suicidal thoughts EXAM Physical Exam Const Vital Signs: 01/08/25 10:35 01/08/25 12:34 01/08/25 14:00 Temperature 97.9 F Temperature Source Oral Pulse Rate 57 L 54 L 54 L Respiratory Rate 18 15 15 Blood Pressure 116/70 124/59 H 116/62 Blood Pressure Mean 85 80 80 Pulse Ox 100 100 100 Oxygen Delivery Method Room Air Room Air Room Air Positive well nourished and well developed General Appearance ED: well developed and NAD HEENT Reports moist mucous membranes Negative for trauma or tenderness Eyes PERRL and EOMs intact bilaterally Neck full ROM and supple Resp normal respiratory effort and clear to auscultation bilaterally Cardio regular rate and regular rhythm GI normal to inspection, nondistended, normoactive bowel sounds, soft to palpation and non-tender Auscultation: normoactive bowel sounds Palpation: soft Back/Spine normal to inspection Back/Spine Narrative: Able to sit up with some assistance, well-healed lumbar spine surgical scar, diffuse mild lumbar tenderness nonfocal no step-off. No rashes. General Back: other FROM Lumbar Spine / Lower Back: ROM limited, lumbar spinal tenderness, paraspinal muscle tenderness and straight leg raise negative bilaterally Extremity normal to inspection, full ROM and no pedal edema General Extremety ED: Negative for edema, pulses abnormal or tenderness General Extremity: Negative for edema or pulses abnormal Neuro oriented x3 and no sensory deficits noted Neuro Narrative: Weak proximally in both lower extremities worse on the right, he is able to resist gravity partially. Normal strength both upper extremities. Reflexes are symmetric and basically absent throughout including his arms. Normal speech. Sensorium / Orientation: alert Motor Exam: strength abnormal and clonus absent Deep Tendon Reflexes: Rt Triceps (C7): 0, Lt Triceps (C7): 0, Rt Biceps (C5, C6): 0, Lt Biceps (C5, C6): 0, Rt Brachioradialis (C6): 0, Lt Brachioradialis (C6): 0, Rt Patellar (L4): 0, Lt Patellar (L4): 0, Rt Ankle (S1): 0 and Lt Ankle (S1): 0 Deep Tendon Reflexes Back: Rt Patellar (L4): 0, Lt Patellar (L4): 0, Rt Ankle (S1): 0 and Lt Ankle (S1): 0 Plantar Reflex: Downgoing: bilateral Psych mental status grossly normal and thought process normal Skin no rashes or lesions noted and no wounds MDM MDM MDM Narrative Medical decision making narrative: Given this patient's history and exam my suspicion is that the etiology of his symptoms is in his low back as opposed to his brain or metabolic disorder or something cardiac, although I am ruling those out with labs and an EKG as well. Obtained three-view x-ray series of the lumbar spine to my interpretation there is no acute fractures, surgical hardware is noted. He is not anticoagulated. Given all of this, and the possibility of cord compression causing this, I think the patient needs a stat MRI. In the meantime, labs are obtained including the urine, EKG, troponin given his weakness. Initial troponin is 23 which is just barely out of the normal range but his EKG is normal, a delta was sent and is higher by only 3 which is a negative delta for ACS, and the rest of his labs are normal. He is actually little leukopenic without being neutropenic. His urine shows signs of infection and significant pyuria without signs of contamination. Therefore I will send this for culture and treat it empirically although he has not been having new urinary symptoms. It is unclear if this is related to his symptoms, but given his focal neurologic weakness below the waist, I still think getting an MRI of his back is indicated. He does still have lower extremity weakness and will likely need to be admitted. Checked out to oncoming ED physician at shift change. History & Record Review Discussion w/independent historian: Patient and Significant other Additional record(s) reviewed:: Prior outpatient record (Reviewed [facility], no record of prior MRI although patient states that exists) Lab Data Attestation: I reviewed the patient's lab results. Labs: Laboratory Results - last 24 hr 01/08/25 01/08/25 01/08/25 11:49 12:54 15:45 WBC 3.0 L RBC 3.58 L Hgb 11.7 L Hct 35.4 L MCV 98.9 H MCH 32.7 H MCHC 33.1 RDW Std Deviation 49.3 H RDW Coeff of Ezequiel 13.4 Plt Count 146 L MPV 9.0 Immature Gran % (Auto) 0.300 Neut % (Auto) 66.8 Lymph % (Auto) 22.9 Curry % (Auto) 8.6 Eos % (Auto) 0.7 Baso % (Auto) 0.7 Absolute Neuts (auto) 2.0 Absolute Lymphs (auto) 0.69 L Nucleated RBC % 0 Sodium 138 Potassium 4.1 Chloride 103 Carbon Dioxide 26.8 Anion Gap 8 BUN 20 H Creatinine 0.88 Estim Creat Clear Calc 67.31 Est GFR (MDRD) Non-Af 86 BUN/Creatinine Ratio 23.2 H Glucose 98 Calcium 9.1 Troponin T High Sens 23 H Troponin T Hi Sens 4Hr 26 H Urine Color Yellow Urine Clarity Sl. Cloudy Urine pH 7.0 Ur Specific Corona 1.010 Urine Protein 15 H Urine Glucose (UA) Normal Urine Ketones Negative Urine Occult Blood 25 H Urine Nitrite Negative Urine Bilirubin Negative Urine Urobilinogen Normal Ur Leukocyte Esterase 500 H Urine RBC 5-10 SEEN Urine WBC 50-100 SEEN Ur Squamous Epith Cells 0-5 SEEN Urine Bacteria 3+ Urine Mucus 0 SEEN Radiography Diagnostic Testing: Clinical Impression(s) from Imaging Studies Lumbar Spine X-Ray 01/08/25 11:50 IMPRESSION: ADVANCED DEGENERATIVE CHANGES OF THE LUMBAR SPINE. Status post laminectomy and fusion at the L3-L4, L4-L5 and L5-S1 levels with prosthetic disc placement. Dextroconvex scoliosis. Reading Location: [place] [id number] Rhythm Strip Rhythm Strip: Sinus Rhythm Rate: 57 Ectopy: None EKG Initial EKG: Attestation: I personally reviewed and interpreted this EKG as follows: Interpretation: No Acute Injury Pattern and Sinus Bradycardia Comments: Nml axis & intervals; nml EKG Discharge Plan Triage Chief Complaint: Weakness ED Provider: Hector Baxter Dx/Rx/DC Orders Clinical Impression: Weakness of both lower extremities, Acute UTI, Inability to walk Prescriptions: No Action metronidazole 0.75 % cream 1 applic TOPICAL DAILY acetaminophen 500 MG tablet 1,000 mg PO PRN hydrochlorothiazide 12.5 MG capsule 12.5 mg PO DAILY Patient Comments: doxycycline hyclate 20 mg tablet 20 mg PO BID Patient Comments: aspirin [Rika Low Dose Aspirin] 81 mg Tablet,Delayed Release (Dr/Ec) 81 mg PO QHS multivitamin Tablet 1 tab PO DAILY pantoprazole 40 mg Tablet,Delayed Release (Dr/Ec) 40 mg PO DAILY lisinopril 5 mg tablet 5 mg PO DAILY d-mannose Powder 1 ea PO DAILY Rx Instructions: / teaspoon on cereal each am. Dupixent Pen 300 mg/2 mL pen injector 300 mg subcut .COMPLEX Rx Instructions: 300 mg subcutaneously EVERY 6 WEEKS; donepezil 5 mg tablet 10 mg PO DAILY trazodone 100 mg tablet 100 mg PO QHS furosemide 20 mg tablet 20 mg PO DAILY memantine 10 mg tablet 10 mg PO BID methenamine hippurate 1 gram tablet 1 g PO BID sertraline 25 mg tablet 25 mg PO DAILY triamcinolone acetonide topical DAILY PRN (Reason: itching) melatonin 5 mg tablet 5 mg PO QHS NewFlora 10 billion cell capsule 80 mmu cells PO DAILY polyethylene glycol 3350 [ClearLax] 17 gram/dose powder 17 g PO DAILY guaifenesin [Mucinex] 600 mg tablet extended release 12hr 600 mg PO BID Trulance 3 mg tablet 3 mg PO DAILY Patient Comments: ON 12/13/24 BACLOFEN SUPPOSITORY 1 supp OTHER DAILY Primary Care Provider: Francisco Bahena Referrals: Francisco Bahena MD [Primary Care Provider] - Print Language: Wolof Disposition Disposition: Acute Care [facility]
--- NOTE | 2025-01-08 11:50 | RAD_ITS ---
PROCEDURE: LUMBAR SPINE 2 OR 3 VIEWS 01/08/2025 REASON FOR EXAM: BACK PAIN, BLE WEAKNESS TECHNIQUE: 2 view(s) of the lumbar spine COMPARISON: None FINDINGS: Vertebrae: The patient is status post laminectomy and intrapedicular screw and mike fixation at the L3-L4, L4-L5 and L5-S1 levels. Spondylosis. Discs: Prosthetic disc placement. Disc space narrowing. Alignment: Dextroscoliosis. Other: Fecal material is seen in the colon. RAD/Lumbar Spine 2 or 3 Views IMPRESSION: ADVANCED DEGENERATIVE CHANGES OF THE LUMBAR SPINE. Status post laminectomy and fusion at the L3-L4, L4-L5 and L5-S1 levels with pr osthetic disc placement. Dextroconvex scoliosis. Reading Location: [place] [id number]
[2025-01-08 11:58] LABS: Absolute Lymphocyte Count 0.69 X10^3/uL (0.83-4.51); Basophil# 0.02 X10^3/uL; Basophil% 0.7 % (0-1); Eosinophil# 0.02 X10^3/uL; Eosinophils% 0.7 % (0-5); Hematocrit 35.4 % (40-54); Hemoglobin 11.7 g/dL (13.0-16.5); Lymphocyte # 0.69 X10^3/ul (0.83-4.51); Lymphocyte % 22.9 % (19-41); Mean Corp Hgb Conc 33.1 g/dL (32-36); Mean Corpuscular Hgb 32.7 pg (27.0-32.0); Mean Corpuscular Volume 98.9 fL (80-94); Monocyte# 0.26 X10^3/uL; Monocyte% 8.6 % (0-10); NRBC Flagged by Analyzer 0 % (0-5); Neutrophil # 2.01 X10^3/uL (2.7-7.7); Neutrophil % 66.8 % (47-70); Platelet Count 146 K/mm3 (150-450); RBC Distribution Width CV 13.4 % (11.6-14.6); RBC Distribution Width SD 49.3 fl (35.1-43.9); Red Blood Count 3.58 M/mm3 (4.6-6.2)
[2025-01-08 12:20] LABS: Troponin T High Sensitivity 23 ng/L (<=22)
[2025-01-08 12:24] LABS: Anion Gap 8 (5-15); BUN 20 mg/dL (4-19); BUN/Creat Ratio 23.2 RATIO (10-20); Calcium,Total 9.1 mg/dL (7.6-11.0); Carbon Dioxide 26.8 mmol/L (21.0-32.0); Chloride 103 mmol/L (98-108); Creatinine, Serum 0.88 mg/dL (0.70-1.20); EST Glomerular Filtration Rate 86 (>60); Estimated Creatinine Clearance 67.31 ml/min (50-250); Glucose 98 mg/dL (70-99); Potassium 4.1 mmol/L (3.3-5.1); Sodium Level 138 mmol/L (133-145)
[2025-01-08 12:34] VITALS: BP 124/59; PULSE 54; RESP 15; O2SAT 100
[2025-01-08 13:02] LABS: Mucous, Urine 0 SEEN /hpf (<or=2+)
[2025-01-08 13:09] LABS: Color, Urine Yellow (Yellow); Glucose, Dipstick Normal (Normal); Ketone-Dipstick Negative (Negative); Leukocyte Esterase-Dipstick 500 /ul (Negative); Nitrite-Dipstick Negative (Negative); Occult Blood-Urine 25 /ul (Negative); Protein-Dipstick 15 mg/dl (Negative); Urine Bilirubin Dipstick Negative (Negative); Urine Clarity Sl. Cloudy (Clear); Urine Urobilinogen Normal (Normal)
[2025-01-08 13:17] LABS: White Blood Cells 50-100 SEEN /hpf (0-5)
[2025-01-08 13:18] LABS: Bacteria 3+ /hpf (None Seen); Red Blood Cells-Urine 5-10 SEEN /hpf (0-5); Squamous Epithelial Cells - UA 0-5 SEEN /hpf (0-5)
[2025-01-08 14:00] VITALS: BP 116/62; PULSE 54; RESP 15; O2SAT 100
[2025-01-08] MEDS: Ceftriaxone 1 GM/50 ML BAG IV (14:06)
[2025-01-08 16:17] LABS: Troponin T High Sens 4 HR 26 ng/L (<=22)
[2025-01-08 16:30] LABS: Troponin T High Sens 2 HR 23 ng/L (<=22)
[2025-01-08 18:00] VITALS: BP 138/78; PULSE 55; RESP 17; O2SAT 99
--- NOTE | 2025-01-08 18:51 | PCM.HP.STD ---
HPI - General General Date of Admission: 01/08/25 Date of Service: 01/08/25 Chief Complaint: Weakness, debility. HPI Narrative The patient is an 84 y/o M w/ PMHx: BPH with obstructive pathology, HTN, Chronic back pain s/p prior surgical intervention, CKD stage II per previous GFR trending, Chronic macrocytic anemia,, Chronic thrombocytopenia who presents to the [facility] ED on with history of onset significant weakness primarily lower extremities prior to ED arrival at his home while attempting to use his walker with difficulty even supporting himself yelling for his who came and found him still standing and helped him lowered to the ground without any injury but because he could not even get up EMS was called. He has chronic low back pain and notes that is unchanged since his prior fusion 4 years prior. He denies any recent illnesses. He does state that he chronically has some sciatic discomfort down his right lower extremity and mild weakness but this is similar to previous and unchanged. He denies any change in bowel or bladder function nor any saddle anesthesia or paresthesia. Workup in the ED included T97.9, heart rate 57, BP 116/70, respiratory rate 18, 100% on room air with most recent repeat vitals heart rate 55, BP 138/78, respiratory rate 17, 99% on room air, CBC with WBC 3.0, hemoglobin 0.7, MCV 98.9, platelet 146 with lymphopenia, BMP with BUN/creatinine 20/0.88, GFR 86, initial troponin 23, repeat delta 23 and 4-hour 26, urine cloudy, specifically 1.010, protein 15, occult blood 25, leukocyte Estrace 500 with urine RBCs 5-10, urine WBCs 50-100 with 3+ urine bacteria, MRI of the lumbar spine with postsurgical changes, dextroscoliosis, degenerative disc disease, plain film of the lumbar spine with status post laminectomy and fusion at L3-L4, L4-L5 and L5-S1 levels with prosthetic disc placement, dextroconvex scoliosis. From review of previous records 09/10/2023 patient did have an E. coli urinary tract infection with associated bacteremia at that time currently sensitive to Rocephin, only agent and was resistant to was ampicillin, and sensitive to Unasyn at that time. In the ED patient administered Rocephin 1 g IV x 1. PFSH Medical History Anxiety and depression HLD (hyperlipidemia) CKD (chronic kidney disease), stage II Dementia Left inguinal hernia Groin pain Inguinal hernia bilateral, non-recurrent Right inguinal hernia History of kidney stones History of hiatal hernia Abdominal pain BPH (benign prostatic hyperplasia) Arthritis History of back problems Hypertension Medical History no medical history Home Medications ?Medication ?Instructions ?Recorded ?Last Taken ?Type acetaminophen 500 mg tablet 1,000 mg PO PRN Pain 04/03/17 Unknown History hydrochlorothiazide 12.5 mg capsule 12.5 mg PO DAILY diuretic 04/03/17 01/07/25 History doxycycline hyclate 20 mg tablet 20 mg PO BID infection 03/13/19 01/07/25 History metronidazole 0.75 % topical cream 1 applic topical DAILY skin health 07/16/19 01/07/25 History aspirin 81 mg tablet,delayed 81 mg PO QHS heart health 01/28/21 01/07/25 History release (Rika Low Dose Aspirin) multivitamin 1 tab PO DAILY vitamin 05/18/21 01/07/25 History pantoprazole 40 mg tablet,delayed 40 mg PO DAILY reflux 05/03/22 01/07/25 History release d-mannose 1 ea PO DAILY 09/24/23 01/07/25 History dupilumab 300 mg/2 mL subcutaneous 300 mg subcut .COMPLEX skin health 09/24/23 Unknown History pen injector (Dupixent) lisinopril 5 mg tablet 5 mg PO DAILY blood pressure 09/24/23 Unknown History Held on 01/08/25. Instructions: Ordered BACLOFEN SUPPOSITORY 1 supp OTHER DAILY CONSITPATION 01/08/25 Unknown History Lactobacillus acidophilus 10 80 mmu cells PO DAILY 01/08/25 01/07/25 History billion cell capsule (NewFlora) donepezil 5 mg tablet 10 mg PO DAILY 01/08/25 01/07/25 History furosemide 20 mg tablet 20 mg PO DAILY 01/08/25 01/07/25 History guaifenesin 600 mg tablet, 600 mg PO BID 01/08/25 01/07/25 History extended release 12 hr (Mucinex) melatonin 5 mg tablet 5 mg PO QHS 01/08/25 01/07/25 History memantine 10 mg tablet 10 mg PO BID 01/08/25 01/07/25 History methenamine hippurate 1 gram tablet 1 g PO BID 01/08/25 01/07/25 History plecanatide 3 mg tablet (Trulance) 3 mg PO DAILY 01/08/25 Unknown History Held on 01/08/25. Instructions: Ordered polyethylene glycol 3350 17 17 g PO DAILY 01/08/25 01/07/25 History gram/dose oral powder (ClearLax) sertraline 25 mg tablet 25 mg PO DAILY 01/08/25 01/07/25 History trazodone 100 mg tablet 100 mg PO QHS 01/08/25 01/07/25 History triamcinolone acetonide topical DAILY PRN itching 01/08/25 01/07/25 History Allergy/AdvReac Type Severity Reaction Status Date / Time Iodinated Contrast Media Allergy Hives Verified 01/08/25 10:39 (CONTRASTS) azelaic acid (From Finacea) AdvReac Rash Verified 01/08/25 10:39 levofloxacin AdvReac Rash Verified 01/08/25 10:39 meloxicam (From Mobic) AdvReac Nausea Verified 01/08/25 10:39 misoprostol (From Cytotec) AdvReac Nausea Verified 01/08/25 10:39 nabumetone (From Relafen) AdvReac Nausea Verified 01/08/25 10:39 NSAIDS (Non-Steroidal AdvReac Nausea Verified 01/08/25 10:39 Anti-Inflamma sulfamethoxazole (From AdvReac Nausea Verified 01/08/25 10:39 Bactrim) terbinafine AdvReac Nausea Verified 01/08/25 10:39 trimethoprim (From Bactrim) AdvReac Nausea Verified 01/08/25 10:39 valdecoxib (From Bextra) AdvReac Other Verified 01/08/25 10:39 Family History Father Colon cancer Mother Cancer lung Hypertension Brother Cancer Family History no significant family his Surgical History History of left inguinal hernia repair (~07/18/19) History of right inguinal hernia repair History of colonoscopy (~02/2019) history repair left thumb History of hemorrhoidectomy History of bilateral cataract extraction history ureteral stent insertion History of laparoscopic cholecystectomy history lap hiatal hernia repair Hx of repair of right rotator cuff Hx of repair of left rotator cuff history exacorporeal shock wave lithrotripsy Surgical History no surgical history Social History household members: spouse Smoking Status: Never smoker alcohol intake: current alcohol intake frequency: a few times a month substance use type: does not use ROS ROS Narrative Admission Review of Systems: CONSTITUTIONAL: No weight loss, fever, chills, + weakness or fatigue. HEENT: Eyes: No visual loss, blurred vision, double vision or yellow sclerae. Ears, Nose, Throat: No hearing loss, sneezing, congestion, runny nose or sore throat. SKIN: No rash or itching, lesions, wounds. CARDIOVASCULAR: No chest pain, chest pressure or chest discomfort, palpitations, edema, orthopnea, syncopal events. RESPIRATORY: No shortness of breath, cough or sputum, wheezing, hemoptysis. GASTROINTESTINAL: No anorexia, nausea, vomiting or diarrhea, abdominal pain, melena, BRBPR. GENITOURINARY: + Increased frequency, history of retention. No dysuria, urgency. NEUROLOGICAL: + Generalized weakness. No headache, dizziness, syncope, paralysis, ataxia, numbness or tingling in the extremities, focal weakness, change in bowel or bladder control, seizure. MUSCULOSKELETAL: + muscle, back pain, joint pain or stiffness. HEMATOLOGIC: + Chronic anemia, easy bleeding/bruising. LYMPHATICS: No enlarged nodes. No history of splenectomy. PSYCHIATRIC: + History of anxiety and depression. ENDOCRINOLOGIC: No reports of sweating, cold or heat intolerance. No polyuria or polydipsia. ALLERGIES: + History of hives. Vital Signs Vital Signs Vital Signs: 01/08/25 10:35 01/08/25 12:34 01/08/25 14:00 Temperature 97.9 F Temperature Source Oral Pulse Rate 57 L 54 L 54 L Respiratory Rate 18 15 15 Blood Pressure 116/70 124/59 H 116/62 Blood Pressure Mean 85 80 80 Pulse Ox 100 100 100 Oxygen Delivery Method Room Air Room Air Room Air 01/08/25 18:00 Temperature Temperature Source Pulse Rate 55 L Respiratory Rate 17 Blood Pressure 138/78 H Blood Pressure Mean 98 Pulse Ox 99 Oxygen Delivery Method Room Air Weight Weight: 162 lb 1.6 oz Body Mass Index (BMI) 22.6 Physical Exam Narrative Physical Examination: General: Awake, alert, oriented to self, place and recent events, does have underlying dementia of unclear extent, remains cooperative, seated upright in the ED bed, fatigued, in no apparent distress. Skin: Normal color, normal turgor, no icterus, no cyanosis except occasional stage ecchymoses, abrasion with HEENT: AT/NC, EOMI, PERRLA, mildly dry MM, no carotid bruits or JVD noted. Lungs: Mildly dry, decreased bases, appropriate, no rales, ronchi or wheezing. Heart: Regular rate and rhythm; no gallop, rub audible. Abdomen: Soft, mild discomfort to suprapubic palpation but not severe, otherwise abdomen NTTP, ND, mildly hyperactive l BS, no appreciated HSM. Extremities: No cyanosis, clubbing, or edema. Neurological: Patient awake, alert, oriented as noted, cognitive function decreased baseline with underlying dementia, appears baseline intact; pupils equally reactive to light and accommodation, cranial nerves grossly normal, moving all 4 extremities, no focal deficits, strength severely globally decreased Psychiatric: Affect appears fatigued otherwise normal, no acute evidence of depressive or anxiety feelings but does have underlying history. Results Lab / Micro Data 01/08/25 11:49 01/08/25 11:49 Labs: Laboratory Results - last 24 hr 01/08/25 11:49: WBC 3.0 L, RBC 3.58 L, Hgb 11.7 L, Hct 35.4 L, MCV 98.9 H, MCH 32.7 H, MCHC 33.1, RDW Std Deviation 49.3 H, RDW Coeff of Ezequiel 13.4, Plt Count 146 L, MPV 9.0, Immature Gran % (Auto) 0.300, Neut % (Auto) 66.8, Lymph % (Auto) 22.9, [place] % (Auto) 8.6, Eos % (Auto) 0.7, Baso % (Auto) 0.7, Absolute Neuts (auto) 2.0, Absolute Lymphs (auto) 0.69 L, Nucleated RBC % 0, Sodium 138, Potassium 4.1, Chloride 103, Carbon Dioxide 26.8, Anion Gap 8, BUN 20 H, Creatinine 0.88, Estim Creat Clear Calc 67.31, Est GFR (MDRD) Non-Af 86, BUN/Creatinine Ratio 23.2 H, Glucose 98, Calcium 9.1, Troponin T High Sens 23 H 01/08/25 12:54: Urine Color Yellow, Urine Clarity Sl. Cloudy, Urine pH 7.0, Ur Specific Locke 1.010, Urine Protein 15 H, Urine Glucose (UA) Normal, Urine Ketones Negative, Urine Occult Blood 25 H, Urine Nitrite Negative, Urine Bilirubin Negative, Urine Urobilinogen Normal, Ur Leukocyte Esterase 500 H, Urine RBC 5-10 SEEN, Urine WBC 50-100 SEEN, Ur Squamous Epith Cells 0-5 SEEN, Urine Bacteria 3+, Urine Mucus 0 SEEN 01/08/25 13:54: Troponin T Hi Sens 2 Hr 23 H 01/08/25 15:45: Troponin T Hi Sens 4Hr 26 H Rhythm Strip Rhythm Strip: Sinus Rhythm Rate: 57 Ectopy: None Imaging Radiology Impression Lumbar Spine MRI 01/08/25 10:53 IMPRESSION: Postsurgical changes, dextroscoliosis, and degenerative disc disease as described above. Reading Location: [facility] Lumbar Spine X-Ray 01/08/25 11:50 IMPRESSION: ADVANCED DEGENERATIVE CHANGES OF THE LUMBAR SPINE. Status post laminectomy and fusion at the L3-L4, L4-L5 and L5-S1 levels with prosthetic disc placement. Dextroconvex scoliosis. Reading Location: [facility] Assessment & Plan Assessment/Plan (1) Weakness of both lower extremities: (2) Acute UTI: PLAN: Plan The patient is an 84 y/o M w/ PMHx: BPH with obstructive pathology, HTN, Chronic back pain s/p prior surgical intervention, CKD stage II per previous GFR trending, Chronic macrocytic anemia,, Chronic thrombocytopenia who presents to the [facility] ED on with history of onset significant weakness primarily lower extremities prior to ED arrival at his home while attempting to use his walker with difficulty even supporting himself yelling for his who came and found him still standing and helped him lowered to the ground without any injury but because he could not even get up EMS was called. #1. Severe weakness, debility, adult Adult FTT, secondary to items noted below in addition to Acute Complicated Urinary Tract Infection complicated by BPH with obstructive pathology, history of intermittent urinary retention's and spinal fusion, history nephrolithiasis, frequent UTIs: Will admit to PCU given mildly indeterminate cardiac enzymes to be cautious, UA upon ED evaluation remarkable, pending UCx, continue IVFs, monitor I/Os, continue IV Rocephin w/ transition as able pending sensitivities and speciation. B PT/OT/case management consulted for discharge planning. #2. Indeterminate cardiac enzymes, stable, unclear etiology: EKG in ED [], initial trop 23 with repeat delta 23 and most recent 4-hour 26. Will maintain on a monitored bed to assure no acute myocardial infarction with serial cardiac enzymes and repeat EKGs only if necessary. Magnesium level requested. Maintain on aspirin. #3. Chronic macrocytic anemia: Admission CBC with hemoglobin 11.7, MCV 90.9, baseline primarily more recently noted 9-10 range, stable, folic acid and vitamin B12 levels requested, continue to trend. #4. Chronic thrombocytopenia, unclear etiology: Admission platelets 146, previous baseline more recently 113-145, appears consistent, continue to trend. #5. Chronic Kidney Disease Stage II primarily per GFR trend: Admission BUN/Cr 20/0.88, GFR 86, baseline renal function 0.8-1.0 primarily, repeat BMP in AM. #6. BPH with obstructive pathology, history of intermittent urinary retention since his spinal fusion, history of nephrolithiasis, frequent UTIs: Will assure no evidence of any urinary retention especially given UTI as noted, not on any regimen for currently's but clarified to be certain. Patient does follow with [facility] urology. #7. Chronic back pain with chronic right lower extremity radiculopathy: Imaging with no acute findings, lumbar spine and lumbar MRI obtained in the ED, will maintain on fall precautions, PT/OT consulted for discharge planning, will continue patient home regimen but attempted to clarify. #8. Dementia, unclear type with unclear behavioral disturbance history: Will continue patient home memantine and donepezil regimen, unclear exact extent or etiology, complicates presentation, maintain on fall and aspiration precautions, PT/OT/case management consulted for discharge planning. #9. Hypertension: Continue home regimen including Lasix with hold parameters as needed, PRN hydralazine. Holding hydrochlorothiazide as already on Lasix as noted. #10. Hyperlipidemia: From prior records potentially been on statin, currently not listed, clarifying. #11. Anxiety and depression: Will continue patient home sertraline regimen, will cautiously add trazodone but hold for sedation as this may be contributing to weakness. #12. GERD: Will continue patient home PPI. #13. DVT prophylaxis: Lovenox. #14. CODE status: Patient HCPBRYON is his who is present and living will is in place. Discussed CODE status at length including difference between FULL code, DNR-CCA and DNR-CC status. Following discussions about the differences in these status, requested Full Code status. Advanced Care Planning Face to Face Time: 16 minutes. Charges/Coding Visit Charges Inpatient E&M: 18840 Init Hosp L3 Procedures Hospitalists Procedures: 25023 Advncd Care Plan 30 Min
[2025-01-08 19:03] VITALS: BP 106/83; PULSE 58; RESP 16; TEMP 37; TEMP 37.1; O2SAT 99
[2025-01-08 20:50] VITALS: BP 122/66; PULSE 51; RESP 16; TEMP 36.6; O2SAT 100
[2025-01-08 22:15] VITALS: BMI 23.4
[2025-01-08] MEDS: 0.9% Normal Saline (1000mL) 1,000 ML 100 ML IV (22:47)
[2025-01-08] MEDS: Menthol/Lanolin/Calamine/Znox 113 GM Tube 1 APPLIC TOPICAL (22:55)
[2025-01-08] MEDS: 0.9% Saline Lock 10 ML Syringe IV (22:55)
[2025-01-08] MEDS: Aspirin 81 MG TAB.CHEW PO (22:56)
[2025-01-08] MEDS: Memantine Hydrochloride 10 MG Tablet PO (22:56)
[2025-01-08] MEDS: traZODone 100 MG Tablet PO (22:56)
[2025-01-08] MEDS: MELATONIN 10 MG TABLET 5 MG PO (22:56)
[2025-01-08] MEDS: Methenamine Hippurate 1 GM Tablet PO (22:57)
[2025-01-09] VITALS (8 sets, daily range): BP systolic 103–130; BP diastolic 54–68; PULSE 60–75; RESP 14–18; TEMP 36.4–36.9; O2SAT 95–100; BMI 23.3
[2025-01-09] MEDS: Acetaminophen 325 MG Tablet 650 MG PO ×2 (04:44→19:51)
[2025-01-09 07:42] LABS: Absolute Lymphocyte Count 1.37 X10^3/uL (0.83-4.51); Absolute Neutrophil Count 2.5 X10^3/uL (2.0-7.7); Basophil# 0.03 X10^3/uL; Basophil% 0.7 % (0-1); Eosinophil# 0.03 X10^3/uL; Eosinophils% 0.7 % (0-5); Hematocrit 33.5 % (40-54); Lymphocyte # 1.37 X10^3/ul (0.83-4.51); Lymphocyte % 32.3 % (19-41); Mean Corp Hgb Conc 32.8 g/dL (32-36); Mean Corpuscular Hgb 32.1 pg (27.0-32.0); Mean Corpuscular Volume 97.7 fL (80-94); Mean Platelet Vol. 9.5 fl (6.2-12.0); Monocyte# 0.35 X10^3/uL; Monocyte% 8.3 % (0-10); NRBC Flagged by Analyzer 0 % (0-5); Neutrophil # 2.45 X10^3/uL (2.7-7.7); Neutrophil % 57.8 % (47-70); Platelet Count 153 K/mm3 (150-450); RBC Distribution Width CV 13.5 % (11.6-14.6); RBC Distribution Width SD 48.8 fl (35.1-43.9); Red Blood Count 3.43 M/mm3 (4.6-6.2); White Blood Count 4.2 K/mm3 (4.4-11.0)
[2025-01-09 09:07] LABS: ALB/GLOB Ratio 2.1 RATIO (0.9-2.4); AST(SGOT) 20 U/L (<=37); Alanine Aminotransfer ALT/SGPT 15 U/L (<=46); Albumin, Serum 3.6 g/dL (3.4-4.8); Alkaline Phosphatase 52 U/L (40-129); Anion Gap 9 (5-15); BUN 22 mg/dL (4-19); BUN/Creat Ratio 25.9 RATIO (10-20); Calcium,Total 8.6 mg/dL (7.6-11.0); Chloride 108 mmol/L (98-108); Creatinine, Serum 0.83 mg/dL (0.70-1.20); EST Glomerular Filtration Rate 87 (>60); Estimated Creatinine Clearance 66.39 ml/min (50-250); Globulin 1.7 g/dL (2.2-4.2); Glucose 84 mg/dL (70-99); Protein, Total 5.2 g/dL (5.9-8.4); Sodium Level 141 mmol/L (133-145); Total Bilirubin 0.48 mg/dL (0.00-1.30); Vitamin B12 592 pg/mL (180-914)
[2025-01-09] MEDS: Lactobacillis Acidophilus 1 CAP PO (10:15)
[2025-01-09] MEDS: Donepezil HCl 10 MG Tablet PO (10:15)
[2025-01-09] MEDS: Methenamine Hippurate 1 GM Tablet PO ×2 (10:15→22:23)
[2025-01-09] MEDS: Furosemide 20 MG Tablet PO (10:16)
[2025-01-09] MEDS: Memantine Hydrochloride 10 MG Tablet PO ×2 (10:17→22:23)
[2025-01-09] MEDS: Ceftriaxone 1 GM/50 ML BAG IV (10:17)
[2025-01-09] MEDS: Pantoprazole Sodium 40 MG Tablet PO (10:17)
[2025-01-09] MEDS: Sertraline 50 MG Tablet 25 MG PO (10:18)
[2025-01-09] MEDS: Enoxaparin 40 MG/0.4 ML Syringe SC (10:18)
[2025-01-09] MEDS: Menthol/Lanolin/Calamine/Znox 113 GM Tube 1 APPLIC TOPICAL ×4 (10:31→22:23)
[2025-01-09] MEDS: Polyethylene Glycol 3350 17 GM PACKET PO (10:31)
--- NOTE | 2025-01-09 11:15 | CASEMGMT ---
RN CM envelope cutter CM to room to meet with patient for initial transition planning/care coordination assessment. RN CM introduced self and role at [facility]. Patient sitting up in chair in room, alert and oriented at this time. in room visiting. Patient has dementia. Pt was able to answer questions that RN CM asked, in detail, and verified information was correct. Care providers, pharmacy, and demographics verified. Strata: 1 PCP: Dr Bahena Specialists: Dr Cabrera, ENT; Kodi, production crew supervisor; Dayna, Urologist [facility]; Dr Daniela Griffin, [facility] for pelvic floor issues; Curt Reddy/GEOSPATIAL ANALYST, [facility]-Nephro; Dr Valle, GI Preferred Pharmacy: [facility] Retail Insurance: [employer] Prescription Benefit: yes Living Will/HPOA: Pt has both LW and HCPOA, who is his , Natty Tariq. states she has the documents @ their home. RN CM inquired if these could be brought in to be placed on pt's chart. LNOK: , 2 adult children Living Arrangements: Patient lives with in a 3 story home w/basement with 3 stair lifts to all levels, which mostly uses. Pt states he is usually able to navigate the stairs w/use of handrail and cane. Patient was independent w/sponge-bathing. does home mgnt tasks. Transportation: DME: Patient has shower chair, raised toilet, cane, walker, rollator, and grab bars at home. SNF/HHC: Patient has had HHC in the past but cannot recall name of agency. Patient has been to [facility] in the past during COVID and states will never go back. Discussed discharge planning w/pt and . states would like pt to go to [facility] TCU or RU @ discharge and declines wanting list of other SNF options unless [facility] TCU unable to accept pt. Pt agreeable. Ting HUBBARD, made aware. Patient and state they have no further needs or concerns at this time. CM to follow for discharge planning needs that may arise. Plan: SNF [facility] RN CM
--- NOTE | 2025-01-09 11:47 | PCM.PN.HOSP ---
Subjective Subjective Feels a bit better today, will have him evaluated by PT and OT given his weakness. Urine cultures are still pending given his positive UA, and there is a history of BPH the postvoid residual today was 156 Objective Data Objective Data Vital Signs: Vital Signs Temp Pulse Resp BP Pulse Ox O2 Del Method 98.4 F 69 16 103/56 L 96 Room Air 01/09/25 08:57 01/09/25 09:03 01/09/25 09:03 01/09/25 08:57 01/09/25 08:57 01/09/25 09:03 Oxygen Delivery Method Room Air Weight: 153 lb 14.122 oz Body Mass Index (BMI) 23.3 Intake & Output: Intake and Output for Last 24 Hours 01/08/25 01/09/25 01/10/25 03:59 03:59 03:59 Intake Total 50 / 50 1000 / 1000 Output Total 250 / 250 Balance 50 / 50 750 / 750 Lab / Micro Data 01/09/25 06:35 01/09/25 06:35 Labs: Laboratory Results - last 24 hr 01/08/25 11:49: WBC 3.0 L, RBC 3.58 L, Hgb 11.7 L, Hct 35.4 L, MCV 98.9 H, MCH 32.7 H, MCHC 33.1, RDW Std Deviation 49.3 H, RDW Coeff of Ezequiel 13.4, Plt Count 146 L, MPV 9.0, Immature Gran % (Auto) 0.300, Neut % (Auto) 66.8, Lymph % (Auto) 22.9, [place] % (Auto) 8.6, Eos % (Auto) 0.7, Baso % (Auto) 0.7, Absolute Neuts (auto) 2.0, Absolute Lymphs (auto) 0.69 L, Nucleated RBC % 0, Sodium 138, Potassium 4.1, Chloride 103, Carbon Dioxide 26.8, Anion Gap 8, BUN 20 H, Creatinine 0.88, Estim Creat Clear Calc 67.31, Est GFR (MDRD) Non-Af 86, BUN/Creatinine Ratio 23.2 H, Glucose 98, Calcium 9.1, Magnesium 2.0, Troponin T High Sens 23 H 01/08/25 12:54: Urine Color Yellow, Urine Clarity Sl. Cloudy, Urine pH 7.0, Ur Specific Warren 1.010, Urine Protein 15 H, Urine Glucose (UA) Normal, Urine Ketones Negative, Urine Occult Blood 25 H, Urine Nitrite Negative, Urine Bilirubin Negative, Urine Urobilinogen Normal, Ur Leukocyte Esterase 500 H, Urine RBC 5-10 SEEN, Urine WBC 50-100 SEEN, Ur Squamous Epith Cells 0-5 SEEN, Urine Bacteria 3+, Urine Mucus 0 SEEN 01/08/25 13:54: Troponin T Hi Sens 2 Hr 23 H 01/08/25 15:45: Troponin T Hi Sens 4Hr 26 H 01/09/25 06:35: WBC 4.2 L, RBC 3.43 L, Hgb 11.0 L, Hct 33.5 L, MCV 97.7 H, MCH 32.1 H, MCHC 32.8, RDW Std Deviation 48.8 H, RDW Coeff of Ezequiel 13.5, Plt Count 153, MPV 9.5, Immature Gran % (Auto) 0.200, Neut % (Auto) 57.8, Lymph % (Auto) 32.3, [place]gwick % (Auto) 8.3, Eos % (Auto) 0.7, Baso % (Auto) 0.7, Absolute Neuts (auto) 2.5, Absolute Lymphs (auto) 1.37, Nucleated RBC % 0, Sodium 141, Potassium 4.0, Chloride 108, Carbon Dioxide 24.0, Anion Gap 9, BUN 22 H, Creatinine 0.83, Estim Creat Clear Calc 66.39, Est GFR (MDRD) Non-Af 87, BUN/Creatinine Ratio 25.9 H, Glucose 84, Calcium 8.6, Total Bilirubin 0.48, AST 20, ALT 15, Alkaline Phosphatase 52, Total Protein 5.2 L, Albumin 3.6, Globulin 1.7 L, Albumin/Globulin Ratio 2.1, Vitamin B12 592 Micro: Microbiology 01/08/25 12:54 Interface Orders Urine Culture - Preliminary GNR lactose senior software project manager Radiography Diagnostic Testing: Radiology Impression Lumbar Spine MRI 01/08/25 10:53 IMPRESSION: Postsurgical changes, dextroscoliosis, and degenerative disc disease as described above. Reading Location: [id number] Lumbar Spine X-Ray 01/08/25 11:50 IMPRESSION: ADVANCED DEGENERATIVE CHANGES OF THE LUMBAR SPINE. Status post laminectomy and fusion at the L3-L4, L4-L5 and L5-S1 levels with prosthetic disc placement. Dextroconvex scoliosis. Reading Location: [facility] Rhythm Strip Rhythm Strip: Sinus Rhythm Rate: 57 Ectopy: None Physical Exam Narrative General: Alert, Oriented x3, Cooperative, No apparent distress HEENT: Atraumatic, PERRLA, EOMI, Normocephalic Oral: Moist Mucosa Neck: Supple, No JVD Lungs: Diminished, Normal air movement, No rhonchi, No wheeze, No rales Cardiovascular: Regular rate, Regular Rhythm, Normal S1, Normal S2, No murmurs Abdomen: Soft, Non Tender, Non-Distended, No Hepato-splenomegaly Extremities: No edema, Capillary Refill Less than 3 Seconds Skin: No rashes, No breakdown Musculoskeletal: No Tenderness to Palpation of Joints or Extremities Neurological: No focal neurological deficits, Motor Exam 5/5 strength throughout, Sensory exam intact to light touch and pain Psych/Mental Status: Normal Affect, Appropriate Assessment & Plan Assessment/Plan (1) Weakness of both lower extremities: (2) Acute UTI: PLAN: Plan 1. Weakness and debility with adult failure to thrive secondary to UTI ? Urine cultures pending ? Continue with antibiotics ? Postvoid residual does not demonstrate significant BPH though he has had issues with retention in the past states that he was on Flomax and finasteride which were discontinued by his urologist ? PT/OT ? She had indeterminate cardiac enzymes that are not of significance 2. Essential HTN/HLD ? Blood pressure stable ? Can resume his home medications ? Will monitor make adjustments as necessary 3. Anxiety/depression/dementia ? Continue with his home medications ? Stable 4. GERD ? Stable ? Continue with PPI 5. Chronic anemia and thrombocytopenia ? Outpatient management and follow-up DVT: Lovenox Charges/Coding Visit Charges Inpatient E&M: 66884 Subs Hosp L2
[2025-01-09] MEDS: BENZOCAINE/MENTHOL 1 LOZENGE MUCOUS MEM (12:12)
--- NOTE | 2025-01-09 15:30 | CASEMGMT ---
SW was informed that patient is interested in [facility] TCU. SW made a referral to TCU. Ting ETIENNE
[2025-01-09] MEDS: BACLOFEN 1 RC (18:30)
[2025-01-09] MEDS: 0.9% Saline Lock 10 ML Syringe IV (19:52)
[2025-01-09] MEDS: traZODone 100 MG Tablet PO (22:23)
[2025-01-09] MEDS: MELATONIN 10 MG TABLET 5 MG PO (22:23)
[2025-01-09] MEDS: Aspirin 81 MG TAB.CHEW PO (22:23)
[2025-01-09] MEDS: guaiFENesin 600 MG Tablet PO (22:23)
[2025-01-10 02:53] VITALS: BMI 24.7
[2025-01-10 04:45] VITALS: BP 120/54; PULSE 67; RESP 16; TEMP 36.7; O2SAT 97
[2025-01-10 06:48] LABS: Absolute Lymphocyte Count 1.38 X10^3/uL (0.83-4.51); Absolute Neutrophil Count 1.9 X10^3/uL (2.0-7.7); Basophil# 0.03 X10^3/uL; Basophil% 0.8 % (0-1); Eosinophil# 0.07 X10^3/uL; Eosinophils% 1.9 % (0-5); Hematocrit 32.9 % (40-54); Hemoglobin 10.9 g/dL (13.0-16.5); Lymphocyte # 1.38 X10^3/ul (0.83-4.51); Lymphocyte % 36.9 % (19-41); Mean Corp Hgb Conc 33.1 g/dL (32-36); Mean Corpuscular Hgb 32.6 pg (27.0-32.0); Mean Corpuscular Volume 98.5 fL (80-94); Mean Platelet Vol. 8.8 fl (6.2-12.0); Monocyte# 0.39 X10^3/uL; Monocyte% 10.4 % (0-10); NRBC Flagged by Analyzer 0 % (0-5); Neutrophil # 1.86 X10^3/uL (2.7-7.7); Neutrophil % 49.7 % (47-70); Platelet Count 132 K/mm3 (150-450); RBC Distribution Width CV 13.6 % (11.6-14.6); RBC Distribution Width SD 49.3 fl (35.1-43.9); Red Blood Count 3.34 M/mm3 (4.6-6.2); White Blood Count 3.7 K/mm3 (4.4-11.0)
[2025-01-10 07:31] LABS: Anion Gap 9 (5-15); BUN 24 mg/dL (4-19); BUN/Creat Ratio 30.1 RATIO (10-20); Calcium,Total 8.7 mg/dL (7.6-11.0); Chloride 109 mmol/L (98-108); Creatinine, Serum 0.81 mg/dL (0.70-1.20); EST Glomerular Filtration Rate 88 (>60); Estimated Creatinine Clearance 68.02 ml/min (50-250); Glucose 91 mg/dL (70-99); Potassium 3.9 mmol/L (3.3-5.1); Sodium Level 142 mmol/L (133-145)
[2025-01-10 07:32] VITALS: O2SAT 97
[2025-01-10] MEDS: Memantine Hydrochloride 10 MG Tablet PO (09:49)
[2025-01-10] MEDS: Polyethylene Glycol 3350 17 GM PACKET PO (09:49)
[2025-01-10] MEDS: Furosemide 20 MG Tablet PO (09:49)
[2025-01-10] MEDS: Lactobacillis Acidophilus 1 CAP PO (09:49)
[2025-01-10] MEDS: Donepezil HCl 10 MG Tablet PO (09:49)
[2025-01-10] MEDS: guaiFENesin 600 MG Tablet PO (09:49)
[2025-01-10] MEDS: Ceftriaxone 1 GM/50 ML BAG IV (09:50)
[2025-01-10] MEDS: Enoxaparin 40 MG/0.4 ML Syringe SC (09:50)
[2025-01-10] MEDS: Sertraline 50 MG Tablet 25 MG PO (09:50)
[2025-01-10] MEDS: Pantoprazole Sodium 40 MG Tablet PO (09:50)
[2025-01-10] MEDS: Methenamine Hippurate 1 GM Tablet PO (09:50)
[2025-01-10] MEDS: 0.9% Saline Lock 10 ML Syringe IV (09:50)
[2025-01-10] MEDS: BACLOFEN 1 RC (09:51)
[2025-01-10] MEDS: Menthol/Lanolin/Calamine/Znox 113 GM Tube 1 APPLIC TOPICAL ×2 (09:51→16:25)
[2025-01-10 10:30] VITALS: BP 102/54; PULSE 80; RESP 16; TEMP 36.3; O2SAT 100
--- NOTE | 2025-01-10 10:39 | DCINST_ITS ---
Discharge Instructions Diet Discharge Diet: No restrictions DC O2, CPAP, BIPAP needs Home O2 Discharge instructions: No Dressing / Incision Discharge Activity: Return to Normal Activity Dressing / Incision Call your doctor if you observe: Fever of 101 or Higher, Shortness of breath, Dizziness, Fainting spells, Swelling in the ankles, Chest pain and Increased palpitations (irregular heartbeat) Follow Up Care Test Results: Test results from this visit will be discussed in further detail at your follow- up appointment, if applicable. Discharge Plan Admission Admit Date/Time: 01/08/25 18:51 Attending Provider: Christoph Kilgore Primary Care Provider: Francisco Bahena Consulting Providers: Keyana Aldana Discharge Orders/Prescriptions Prescriptions: New fosfomycin tromethamine 3 gram packet 1 packet PO QODAY Qty: 1 0RF Continued metronidazole 0.75 % cream 1 applic TOPICAL DAILY acetaminophen 500 MG tablet 1,000 mg PO PRN hydrochlorothiazide 12.5 MG capsule 12.5 mg PO DAILY Patient Comments: doxycycline hyclate 20 mg tablet 20 mg PO BID Patient Comments: aspirin [Rika Low Dose Aspirin] 81 mg Tablet,Delayed Release (Dr/Ec) 81 mg PO QHS multivitamin Tablet 1 tab PO DAILY pantoprazole 40 mg Tablet,Delayed Release (Dr/Ec) 40 mg PO DAILY lisinopril 5 mg tablet 5 mg PO DAILY d-mannose Powder 1 ea PO DAILY Rx Instructions: 1/4 teaspoon on cereal each am. Dupixent Pen 300 mg/2 mL pen injector 300 mg subcut .COMPLEX Rx Instructions: 300 mg subcutaneously EVERY 6 WEEKS; donepezil 5 mg tablet 10 mg PO DAILY trazodone 100 mg tablet 100 mg PO QHS furosemide 20 mg tablet 20 mg PO DAILY memantine 10 mg tablet 10 mg PO BID methenamine hippurate 1 gram tablet 1 g PO BID sertraline 25 mg tablet 25 mg PO DAILY triamcinolone acetonide topical DAILY PRN (Reason: itching) melatonin 5 mg tablet 5 mg PO QHS NewFlora 10 billion cell capsule 80 mmu cells PO DAILY polyethylene glycol 3350 [ClearLax] 17 gram/dose powder 17 g PO DAILY guaifenesin [Mucinex] 600 mg tablet extended release 12hr 600 mg PO BID Trulance 3 mg tablet 3 mg PO DAILY Patient Comments: ON 12/13/24 BACLOFEN SUPPOSITORY 1 supp OTHER DAILY Referrals / Follow Up: Francisco Bahena MD [Primary Care Provider] - Within 1 Week Disposition Disposition (needs filled in before D/C Order can be placed): Home, Self Care
--- NOTE | 2025-01-10 12:30 | CASEMGMT ---
Therapy notified HAYDEE that patient did well with therapy today and would be fine for home with home health. HAYDEE met with patient and his Natty. HAYDEE introduced self to Natty. HAYDEE let Natty know that therapy said patient did well with therapy today and would be fine for home with home health. Natty was in agreement with this plan. HAYDEE let her know SW will bring them a list of home health agencies and they can pick their preferences. HAYDEE cash processor CM will then take care of making referrals. HAYDEE asked Any to print a home health list. Ting King ALLERGIST/IMMUNOLOGIST PHYSICIAN JAIMIE
--- NOTE | 2025-01-10 12:33 | CASEMGMT ---
Discharge Planning A list of HH providers including quality and resource use data and consistent with the patient's preferred geographic region, medical needs, and insurance network was created in [facility] Guide.? This list was provided to the pt and his . Any Mercedes, Discharge Planning Asst.
--- NOTE | 2025-01-10 13:32 | CHAPLAIN ---
Type of Pastoral Visit _x__ Initial Visit ___ Follow-up Visit ___ On-call Visit ___ General Patient Visit ___ Spiritual Assessment ___ Family Conference ___ Bereavement ___ Rapid Response ___ Code Blue ___ Other (describe below) Pastoral Care Referral From _x__ Patient _x__ Family ___ Nurse ___ Physician ___ Gui Developer ___ Informatics Spec ___ Other (describe below) Sacrament/Intervention _x__ Active listening ___ Anointing ___ Druze ___ Bereavement ___ Communion _x__ Eileen exploration ___ ___ Life review _x__ Prayer ___ Reconciliation ___ Sacrament of Sick ___ Supportive presence ___ Wedding ___ Other (describe below) Pastoral Comments patient is dressed and ready to go home; spouse is with him; pt has many good things to say about his quick recovery and excellent care while in the hospital; spouse is in total agreement; pt is ready to be discharged but welcomes the visit and a prayer; pt has strong eileen in God and gives thanks to this electronic page makeup system operator for being available to patients; no other needs identified
--- NOTE | 2025-01-10 14:19 | CASEMGMT ---
Addendum entered by Smiley Bradford 01/10/25 15:50: LISSETTE JEFF recieved call back from [facility], they are able to accept with planned start for Tuesday. LISSETTE JEFF updated patient and . Patient and had no further questions or concerns. Original Note: LISSETTE JEFF updated by hospitalist that patient will need Prior Auth for Fosfomycin. LISSETTE JEFF called patient's insurance and completed prior auth over the phone. PA was approved case#[id number]. LISSETTE JEFF called and updated pharmacy, medication was covered 100%. LISSETTE JEFF updated hospitalist. RN CM notified that patient would like [facility], referral made, awaiting acceptance. CM will continue to follow this patient and plan for a safe discharge.
--- NOTE | 2025-01-10 14:31 | PHA.DC_ITS ---
Pharmacy [facility] has performed discharge medication reconciliation and counseling for this patient. The patient's discharge medication list was reviewed for discrepancies and discrepancies were resolved. The patient was counseled on the following discharge medications and changes in medications for homegoing were reviewed. 1. FOSFOMYCIN The Reason for Use, instructions for use, and potential side effects were reviewed for all new medications. The patient's questions regarding all of their medications were answered. The patient was able to verbally demonstrate an understanding of their discharge medications. Medications at Discharge Home Medications acetaminophen 500 mg tablet 1,000 mg PO PRN Pain 04/03/17 hydrochlorothiazide 12.5 mg capsule 12.5 mg PO DAILY diuretic 04/03/17 doxycycline hyclate 20 mg tablet 20 mg PO BID infection 03/13/19 metronidazole 0.75 % topical cream 1 applic topical DAILY [facility] 07/16/19 aspirin 81 mg tablet,delayed release (Rika Low Dose Aspirin) 81 mg PO QHS [facility] 01/28/21 multivitamin 1 tab PO DAILY vitamin 05/18/21 pantoprazole 40 mg tablet,delayed release 40 mg PO DAILY reflux 05/03/22 d-mannose 1 ea PO DAILY 09/24/23 dupilumab 300 mg/2 mL subcutaneous pen injector ([employer]) 300 mg subcut .C OMPLEX [facility] 09/24/23 lisinopril 5 mg tablet 5 mg PO DAILY blood pressure 09/24/23 BACLOFEN SUPPOSITORY 1 supp OTHER DAILY CONSITPATION 01/08/25 Lactobacillus acidophilus 10 billion cell capsule (NewFlora) 80 mmu cells PO DAILY 01/08/25 donepezil 5 mg tablet 10 mg PO DAILY 01/08/25 furosemide 20 mg tablet 20 mg PO DAILY 01/08/25 guaifenesin 600 mg tablet, extended release 12 hr (Mucinex) 600 mg PO BID 01/08/25 melatonin 5 mg tablet 5 mg PO QHS 01/08/25 memantine 10 mg tablet 10 mg PO BID 01/08/25 methenamine hippurate 1 gram tablet 1 g PO BID 01/08/25 plecanatide 3 mg tablet (Trulance) 3 mg PO DAILY 01/08/25 polyethylene glycol 3350 17 gram/dose oral powder (ClearLax) 17 g PO DAILY 01/08/25 sertraline 25 mg tablet 25 mg PO DAILY 01/08/25 trazodone 100 mg tablet 100 mg PO QHS 01/08/25 triamcinolone acetonide topical DAILY PRN itching 01/08/25 fosfomycin tromethamine 3 gram oral packet 1 packet PO QODAY 3 doses #1 ea 01/10/25
[2025-01-10 16:00] VITALS: BP 122/65; PULSE 72; RESP 16; TEMP 36.7; O2SAT 98
[2025-01-10] MEDS: CLARIFY ORDER NOTE (16:26)
--- NOTE | 2025-01-10 16:47 | PCM.DC.SUM ---
Providers Date of Admission: 01/08/25 Primary Care Physician: Dr. Francisco Bahena MD Reason For Visit: UTI, ADULT FTT, ELEVATED TROP Diagnosis Discharge Diagnosis (1) Weakness of both lower extremities: Status: Acute Code(s): R29.898 - Other symptoms and signs involving the musculoskeletal system (2) Acute UTI: Status: Acute Code(s): N39.0 - Urinary tract infection, site not specified Medications at Discharge Home Medications acetaminophen 500 mg tablet 1,000 mg PO PRN Pain 04/03/17 hydrochlorothiazide 12.5 mg capsule 12.5 mg PO DAILY diuretic 04/03/17 doxycycline hyclate 20 mg tablet 20 mg PO BID infection 03/13/19 metronidazole 0.75 % topical cream 1 applic topical DAILY [facility] 07/16/19 aspirin 81 mg tablet,delayed release (Rika Low Dose Aspirin) 81 mg PO QHS [facility] 01/28/21 multivitamin 1 tab PO DAILY vitamin 05/18/21 pantoprazole 40 mg tablet,delayed release 40 mg PO DAILY reflux 05/03/22 d-mannose 1 ea PO DAILY 09/24/23 dupilumab 300 mg/2 mL subcutaneous pen injector ([employer]) 300 mg subcut .COMPLEX [facility] 09/24/23 lisinopril 5 mg tablet 5 mg PO DAILY blood pressure 09/24/23 BACLOFEN SUPPOSITORY 1 supp OTHER DAILY CONSITPATION 01/08/25 Lactobacillus acidophilus 10 billion cell capsule (NewFlora) 80 mmu cells PO DAILY 01/08/25 donepezil 5 mg tablet 10 mg PO DAILY 01/08/25 furosemide 20 mg tablet 20 mg PO DAILY 01/08/25 guaifenesin 600 mg tablet, extended release 12 hr (Mucinex) 600 mg PO BID 01/08/25 melatonin 5 mg tablet 5 mg PO QHS 01/08/25 memantine 10 mg tablet 10 mg PO BID 01/08/25 methenamine hippurate 1 gram tablet 1 g PO BID 01/08/25 plecanatide 3 mg tablet (Trulance) 3 mg PO DAILY 01/08/25 polyethylene glycol 3350 17 gram/dose oral powder (ClearLax) 17 g PO DAILY 01/08/25 sertraline 25 mg tablet 25 mg PO DAILY 01/08/25 trazodone 100 mg tablet 100 mg PO QHS 01/08/25 triamcinolone acetonide topical DAILY PRN itching 01/08/25 fosfomycin tromethamine 3 gram oral packet 1 packet PO QODAY 3 doses #1 ea 01/10/25 Hospital Course Operations None Procedures None Summary of Care Provided Minutes Spent on Discharge: 35 Hospital Course: Per HPI: The patient is an 84 y/o M w/ PMHx: BPH with obstructive pathology, HTN, Chronic back pain s/p prior surgical intervention, CKD stage II per previous GFR trending, Chronic macrocytic anemia,, Chronic thrombocytopenia who presents to the [facility] ED on with history of onset significant weakness primarily lower extremities prior to ED arrival at his home while attempting to use his walker with difficulty even supporting himself yelling for his who came and found him still standing and helped him lowered to the ground without any injury but because he could not even get up EMS was called. He has chronic low back pain and notes that is unchanged since his prior fusion 4 years prior. He denies any recent illnesses. He does state that he chronically has some sciatic discomfort down his right lower extremity and mild weakness but this is similar to previous and unchanged. He denies any change in bowel or bladder function nor any saddle anesthesia or paresthesia. Workup in the ED included T97.9, heart rate 57, BP 116/70, respiratory rate 18, 100% on room air with most recent repeat vitals heart rate 55, BP 138/78, respiratory rate 17, 99% on room air, CBC with WBC 3.0, hemoglobin 0.7, MCV 98.9, platelet 146 with lymphopenia, BMP with BUN/creatinine 20/0.88, GFR 86, initial troponin 23, repeat delta 23 and 4-hour 26, urine cloudy, specifically 1.010, protein 15, occult blood 25, leukocyte Estrace 500 with urine RBCs 5-10, urine WBCs 50-100 with 3+ urine bacteria, MRI of the lumbar spine with postsurgical changes, dextroscoliosis, degenerative disc disease, plain film of the lumbar spine with status post laminectomy and fusion at L3-L4, L4-L5 and L5-S1 levels with prosthetic disc placement, dextroconvex scoliosis. From review of previous records 09/10/2023 patient did have an E. coli urinary tract infection with associated bacteremia at that time currently sensitive to Rocephin, only agent and was resistant to was ampicillin, and sensitive to Unasyn at that time. In the ED patient administered Rocephin 1 g IV x 1. Hospital Course: 1. Weakness and debility with adult failure to thrive secondary to ESBL E. coli UTI?84-year-old male presented to the hospital with bilateral lower extremity weakness. No concerns for stroke. He was found to have a contaminated UA which was sent for culture and demonstrated an ESBL E. coli. On the day of discharge she was able to ambulate much better and even though his cultures demonstrated sensitivities to cephalosporins I elected to proceed with outpatient dosage of fosfomycin to ensure adequate treatment of his ESBL E. coli. I discussed with him the plan for discharge and he expressed understanding the risks and benefits of going home and would like to go home today. 2. Essential hypertension, hyperlipidemia, anxiety, depression, dementia, GERD, chronic anemia and thrombocytopenia are all chronic medical conditions which complicate his care. His home medications were continued where appropriate Physical Exam Narrative General: Alert, Oriented x3, Cooperative, No apparent distress HEENT: Atraumatic, PERRLA, EOMI, Normocephalic Oral: Moist Mucosa Neck: Supple, No JVD Lungs: Diminished, Normal air movement, No rhonchi, No wheeze, No rales Cardiovascular: Regular rate, Regular Rhythm, Normal S1, Normal S2, No murmurs Abdomen: Soft, Non Tender, Non-Distended, No Hepato-splenomegaly Extremities: No edema, Capillary Refill Less than 3 Seconds Skin: No rashes, No breakdown Musculoskeletal: No Tenderness to Palpation of Joints or Extremities Neurological: No focal neurological deficits, Motor Exam 5/5 strength throughout, Sensory exam intact to light touch and pain Psych/Mental Status: Normal Affect, Appropriate Weight / BMI Weight Weight: 163 lb 2.273 oz Body Mass Index (BMI) 24.7 ABG / Lab / Microbiology Data 01/10/25 06:32 01/10/25 06:32 Laboratory: Laboratory Results - last 24 hr 01/10/25 06:32: WBC 3.7 L, RBC 3.34 L, Hgb 10.9 L, Hct 32.9 L, MCV 98.5 H, MCH 32.6 H, MCHC 33.1, RDW Std Deviation 49.3 H, RDW Coeff of Ezequiel 13.6, Plt Count 132 L, MPV 8.8, Immature Gran % (Auto) 0.300, Neut % (Auto) 49.7, Lymph % (Auto) 36.9, Cobb % (Auto) 10.4 H, Eos % (Auto) 1.9, Baso % (Auto) 0.8, Absolute Neuts (auto) 1.9 L, Absolute Lymphs (auto) 1.38, Nucleated RBC % 0, Sodium 142, Potassium 3.9, Chloride 109 H, Carbon Dioxide 24.0, Anion Gap 9, BUN 24 H, Creatinine 0.81, Estim Creat Clear Calc 68.02, Est GFR (MDRD) Non-Af 88, BUN/Creatinine Ratio 30.1 H, Glucose 91, Calcium 8.7, Serum Folate 19.10 Microbiology: Microbiology 01/08/25 12:54 Interface Orders Urine Culture - Final ESBL Escherichia coli D/C Instructions Discharge Diet: No restrictions Call your doctor if you observe: Fever of 101 or Higher, Shortness of breath, Dizziness, Fainting spells, Swelling in the ankles, Chest pain and Increased palpitations (irregular heartbeat) DC O2, CPAP, BIPAP Needs Home O2 Discharge instructions: No Meaningful Use Info Meaningful Use Meaningful Use Diagnoses (Choose all that apply): None applicable Ischemic Stroke Statin Dosing Therapy Reference: STATIN DOSE THERAPY REFERENCE: * Patients > 75 years receive moderate or high dose statin therapy. * Patients 75 years or YOUNGER should receive HIGH intensity statin dose unless contraindicated. You will be required to document reason for non-treatment if statin daily dose does not meet guidelines. HIGH DOSE STATIN THERAPY DAILY Atorvastatin > than or = to 40 mg Rosuvastatin > than or = to 20 mg Amlodipine + Atorvastatin > than or = to 2.5/40 mg Ezetimibe + Simvastatin 10/80 mg Simvastatin 80mg Discharge Plan Admission Admit Date/Time: 01/08/25 18:51 Attending Provider: Christoph Kilgore Primary Care Provider: Francisco Bahena Consulting Providers: Keyana Aldana Discharge Orders/Prescriptions Prescriptions: New fosfomycin tromethamine 3 gram packet 1 packet PO QODAY Qty: 1 0RF Continued metronidazole 0.75 % cream 1 applic TOPICAL DAILY acetaminophen 500 MG tablet 1,000 mg PO PRN hydrochlorothiazide 12.5 MG capsule 12.5 mg PO DAILY Patient Comments: doxycycline hyclate 20 mg tablet 20 mg PO BID Patient Comments: aspirin [Rika Low Dose Aspirin] 81 mg Tablet,Delayed Release (Dr/Ec) 81 mg PO QHS multivitamin Tablet 1 tab PO DAILY pantoprazole 40 mg Tablet,Delayed Release (Dr/Ec) 40 mg PO DAILY lisinopril 5 mg tablet 5 mg PO DAILY d-mannose Powder 1 ea PO DAILY Rx Instructions: 09/29 teaspoon on cereal each am. Dupixent Pen 300 mg/2 mL pen injector 300 mg subcut .COMPLEX Rx Instructions: 300 mg subcutaneously EVERY 6 WEEKS; donepezil 5 mg tablet 10 mg PO DAILY trazodone 100 mg tablet 100 mg PO QHS furosemide 20 mg tablet 20 mg PO DAILY memantine 10 mg tablet 10 mg PO BID methenamine hippurate 1 gram tablet 1 g PO BID sertraline 25 mg tablet 25 mg PO DAILY triamcinolone acetonide topical DAILY PRN (Reason: itching) melatonin 5 mg tablet 5 mg PO QHS NewFlora 10 billion cell capsule 80 mmu cells PO DAILY polyethylene glycol 3350 [ClearLax] 17 gram/dose powder 17 g PO DAILY guaifenesin [Mucinex] 600 mg tablet extended release 12hr 600 mg PO BID Trulance 3 mg tablet 3 mg PO DAILY Patient Comments: ON 12/13/24 BACLOFEN SUPPOSITORY 1 supp OTHER DAILY Referrals / Follow Up: Francisco Bahena MD [Primary Care Provider] - Within 1 Week Disposition Disposition (needs filled in before D/C Order can be placed): Home, Self Care Charges/Coding Visit Charges Inpatient E&M: 53072 Disch Hosp >30min
== END 2025-01-10 16:36 | disposition home health service (06) | DRG 690 ==
LOC: ED 16:30 → PCU 19:39
PROVIDERS: Admitting Provider Family Medicine; Emergency Provider Emergency Medicine; PCP Family Medicine; Visit Provider Family Medicine
DX: N39.0 Urinary tract infection, site not specified (principal); Z16.12 Extended spectrum beta lactamase (ESBL) resistance; D63.1 Anemia in chronic kidney disease; D69.6 Thrombocytopenia, unspecified; R62.7 Adult failure to thrive; F03.90 Unspecified dementia, unspecified severity, without behavioral disturbance, psychotic disturbance, mood disturbance, and anxiety; I12.9 Hypertensive chronic kidney disease with stage 1 through stage 4 chronic kidney disease, or unspecified chronic kidney disease; F32.A Depression, unspecified; N18.2 Chronic kidney disease, stage 2 (mild); E78.5 Hyperlipidemia, unspecified; K21.9 Gastro-esophageal reflux disease without esophagitis; F41.9 Anxiety disorder, unspecified; B96.20 Unspecified Escherichia coli [E. coli] as the cause of diseases classified elsewhere; R79.89 Other specified abnormal findings of blood chemistry; Z68.24 Body mass index [BMI] 24.0-24.9, adult; Z79.82 Long term (current) use of aspirin; Z79.899 Other long term (current) drug therapy
CPT/HCPCS: 36415; 72100; 72148; 80048; 80053; 81001; 82607; 82746; 83735; 84484; 85025; 87077; 87086; 87088; 87186; 93005; 97162; 97166; 97530; 97535; 99285; A4216

== ENCOUNTER 2025-01-29 20:24 | Emergency (ER) | payer MEDICARE, SELFPAY ==
[2025-01-29 20:27] VITALS: BP 139/58; PULSE 76; RESP 18; TEMP 37.3; O2SAT 95; BMI 25.4
[2025-01-29 20:30] VITALS: BP 139/58; PULSE 72; RESP 16; TEMP 37.3; O2SAT 95
--- NOTE | 2025-01-29 20:40 | EX.ED.DYSGE1 ---
HPI History of Present Illness Chief Complaint: Weakness Narrative Narrative: 84-year-old male presents via EMS with bilateral leg weakness that he experienced this evening. He had his relate history that they were seen in the emergency department a few weeks ago. He was admitted because he had a UTI, and he was unable to walk and was very weak. He also had an MRI of the spine at that time. They relate history that he was treated for urinary tract infection and had been given fosfomycin. He denies any recent problems with dysuria or symptoms, however he was seen by his primary care provider on Tuesday, and diagnosed with a UTI and started on Bactrim. Today, he had bilateral lower extremity weakness again even though he sees physical therapy at his house 2 or 3 times a week. He states that he usually tries to go down the stairs backwards. These and was folded up like a pretzel according to his . He denies actually falling, hitting his head, or injury. He was trying to get turned around so he could stand up but was unable to. Hence, his called the squad, and they had to help pick him up. He has not had any recent fevers or chills, no other symptoms except for the bilateral lower extremity weakness which has been ongoing. His states that whenever he has a urinary tract infection, this is his main symptom and he becomes weak. [facility] Medical History History of ESBL E. coli infection Anxiety Depression Kidney stones Kidney disease Former smoker Anxiety and depression HLD (hyperlipidemia) CKD (chronic kidney disease), stage II Dementia Left inguinal hernia Groin pain Inguinal hernia bilateral, non-recurrent Right inguinal hernia History of kidney stones History of hiatal hernia Abdominal pain BPH (benign prostatic hyperplasia) Arthritis History of back problems Hypertension Home Medications ?Medication ?Instructions ?Recorded ?Last Taken ?Type acetaminophen 500 mg tablet 1,000 mg PO PRN Pain 04/03/17 Unknown History hydrochlorothiazide 12.5 mg capsule 12.5 mg PO DAILY diuretic 04/03/17 01/07/25 History doxycycline hyclate 20 mg tablet 20 mg PO BID infection 03/13/19 01/07/25 History metronidazole 0.75 % topical cream 1 applic topical DAILY skin health 07/16/19 01/07/25 History aspirin 81 mg tablet,delayed 81 mg PO QHS heart health 01/28/21 01/07/25 History release (Rika Low Dose Aspirin) multivitamin 1 tab PO DAILY vitamin 05/18/21 01/07/25 History pantoprazole 40 mg tablet,delayed 40 mg PO DAILY reflux 05/03/22 01/07/25 History release d-mannose 1 ea PO DAILY 09/24/23 01/07/25 History dupilumab 300 mg/2 mL subcutaneous 300 mg subcut .COMPLEX skin health 09/24/23 Unknown History pen injector (Dupixent) lisinopril 5 mg tablet 5 mg PO DAILY blood pressure 09/24/23 Unknown History BACLOFEN SUPPOSITORY 1 supp OTHER DAILY CONSITPATION 01/08/25 Unknown History Lactobacillus acidophilus 10 80 mmu cells PO DAILY 01/08/25 01/07/25 History billion cell capsule (NewFlora) donepezil 5 mg tablet 10 mg PO DAILY 01/08/25 01/07/25 History furosemide 20 mg tablet 20 mg PO DAILY 01/08/25 01/07/25 History guaifenesin 600 mg tablet, 600 mg PO BID 01/08/25 01/07/25 History extended release 12 hr (Mucinex) melatonin 5 mg tablet 5 mg PO QHS 01/08/25 01/07/25 History memantine 10 mg tablet 10 mg PO BID 01/08/25 01/07/25 History methenamine hippurate 1 gram tablet 1 g PO BID 01/08/25 01/07/25 History plecanatide 3 mg tablet (Trulance) 3 mg PO DAILY 01/08/25 Unknown History Held on 01/29/25. Instructions: reports being on hold 12/13/2024 polyethylene glycol 3350 17 17 g PO DAILY 01/08/25 01/07/25 History gram/dose oral powder (ClearLax) sertraline 25 mg tablet 25 mg PO DAILY 01/08/25 01/07/25 History trazodone 100 mg tablet 100 mg PO QHS 01/08/25 01/07/25 History triamcinolone acetonide 1 applic topical DAILY PRN itching 01/08/25 01/07/25 History fosfomycin tromethamine 3 gram 1 packet PO QODAY 3 doses #1 ea 01/10/25 Unknown Rx oral packet hydrochlorothiazide 12.5 mg tablet 12.5 mg PO DAILY 01/29/25 Unknown History sulfamethoxazole 800 1 tab PO BID 01/29/25 Unknown History mg-trimethoprim 160 mg tablet Allergy/AdvReac Type Severity Reaction Status Date / Time Iodinated Contrast Media Allergy Hives Verified 01/29/25 20:26 (CONTRASTS) azelaic acid (From Finacea) AdvReac Rash Verified 01/29/25 20:26 levofloxacin AdvReac Rash Verified 01/29/25 20:26 meloxicam (From Mobic) AdvReac Nausea Verified 01/29/25 20:26 misoprostol (From Cytotec) AdvReac Nausea Verified 01/29/25 20:26 nabumetone (From Relafen) AdvReac Nausea Verified 01/29/25 20:26 NSAIDS (Non-Steroidal AdvReac Nausea Verified 01/29/25 20:26 Anti-Inflamma sulfamethoxazole (From AdvReac Nausea Verified 01/29/25 20:26 Bactrim) terbinafine AdvReac Nausea Verified 01/29/25 20:26 trimethoprim (From Bactrim) AdvReac Nausea Verified 01/29/25 20:26 valdecoxib (From Bextra) AdvReac Other Verified 01/29/25 20:26 Family History Father Colon cancer Mother Cancer lung Hypertension Brother Cancer Surgical History History of cholecystectomy History of left inguinal hernia repair (~07/18/19) History of right inguinal hernia repair History of colonoscopy (~02/2019) history repair left thumb History of hemorrhoidectomy History of bilateral cataract extraction history ureteral stent insertion History of laparoscopic cholecystectomy history lap hiatal hernia repair Hx of repair of right rotator cuff Hx of repair of left rotator cuff history exacorporeal shock wave lithrotripsy Social History household members: spouse Smoking Status: Former smoker alcohol intake: current alcohol intake frequency: a few times a month substance use type: does not use ROS ROS ED ROS Narrative Review of systems positive for bilateral lower extremity weakness, and inability to stand. No fevers or chills, no dysuria or hematuria. Denies other symptoms. EXAM Physical Exam Narrative Exam Narrative: Afebrile. Vital signs. Nontoxic-appearing. Regular rate and rhythm. Lungs clear to auscultation bilaterally. Abdomen soft nontender without guarding or rebound. Neurological examination nonfocal, nonlateralizing. He has full range of motion of his legs. He is able to lift each leg off the bed independently without difficulty. He appears neurovascularly intact distally. EHL intact bilaterally. Flexion extension at bilateral hips and knees intact. Good muscle strength. Const Vital Signs: 01/29/25 20:27 01/29/25 20:30 01/29/25 20:30 Temperature 99.1 F 99.1 F Temperature Source Oral Oral Pulse Rate 76 72 Respiratory Rate 18 16 Respiratory Effort Normal Non-Labored Respiratory Pattern Normal Blood Pressure 139/58 H 139/58 H Blood Pressure Mean 85 85 Pulse Ox 95 95 Oxygen Delivery Method Room Air Room Air 01/29/25 21:30 Temperature 98.7 F Temperature Source Oral Pulse Rate 69 Respiratory Rate 16 Respiratory Effort Respiratory Pattern Blood Pressure 134/56 H Blood Pressure Mean 82 Pulse Ox 100 Oxygen Delivery Method Room Air MDM MDM MDM Narrative Medical decision making narrative: In discussion with his , she is concerned that although he is on Bactrim, this may not be the right antibiotic. Differential diagnosis does include generalized weakness versus proximal muscle weakness versus UTI versus dehydration versus other electrolyte imbalance. I did review his chart and he was seen on 08 January, approximately 3 weeks ago. He had been admitted for 2 days. He did have MRI of the spine which I had checked for Dr. Baxter, and discussed the patient with the hospitalist for admission. He was discharged on the . I do not feel he needs any imaging as he did not fall, hit his head, and was uninjured. I will obtain a CBC BMP, and UA with urine culture. I reviewed his CBC and he has neutropenia 4.1 both compared to prior laboratories, he usually is neutropenic. Hemoglobin stable at 11.7 with platelet count normal at 164. BMP is remarkable for glucose of 127 with normal sodium of 137 and potassium 3.9, BUN slightly elevated 23 with creatinine 1.39 consistent with acute kidney injury. He was bolused normal saline 1 L intravenously. Initial urinalysis shows occult blood of 25 with leukocyte esterase 100. Microanalysis is pending. Upon repeat examination, patient states that he is motivated for discharge and prefers to go home. Attempt will be made to ambulate him first. His microanalysis does show 10-25 WBCs, but there are 0 bacteria. I think this is probably pyuria from his previous UTI. He has been on Bactrim for the last few days. I did discuss with them a one-time dose of fosfomycin, but patient declined and stated he wanted to be discharged. He was able to ambulate with a walker. At this point in time, I feel he can be discharged to follow-up with his primary care provider. Return instructions to the emergency department were reviewed. Disposition is discharged home in stable condition. History & Record Review Discussion w/independent historian: Patient and Family Lab Data Attestation: I reviewed the patient's lab results. Labs: Laboratory Results - last 24 hr 01/29/25 01/29/25 20:48 21:47 WBC 4.1 L RBC 3.63 L Hgb 11.7 L Hct 36.0 L MCV 99.2 H MCH 32.2 H MCHC 32.5 RDW Std Deviation 47.2 H RDW Coeff of Ezequiel 12.9 Plt Count 164 MPV 9.2 Immature Gran % (Auto) 0.200 Neut % (Auto) 54.6 Lymph % (Auto) 31.1 [place] % (Auto) 13.2 H Eos % (Auto) 0.7 Baso % (Auto) 0.2 Absolute Neuts (auto) 2.2 Absolute Lymphs (auto) 1.27 Nucleated RBC % 0 Sodium 137 Potassium 3.9 Chloride 103 Carbon Dioxide 23.1 Anion Gap 11 BUN 23 H Creatinine 1.39 H Estim Creat Clear Calc 39.64 L Est GFR (MDRD) Non-Af 51 L BUN/Creatinine Ratio 16.8 Glucose 127 H Calcium 8.9 Urine Color Yellow Urine Clarity Sl. Cloudy Urine pH 6.0 Ur Specific [place] 1.015 Urine Protein 15 H Urine Glucose (UA) Normal Urine Ketones Negative Urine Occult Blood 25 H Urine Nitrite Negative Urine Bilirubin Negative Urine Urobilinogen Normal Ur Leukocyte Esterase 100 H Urine RBC 0-5 SEEN Urine WBC 10-25 SEEN Ur Squamous Epith Cells 0-5 SEEN Urine Bacteria 0 SEEN Urine Mucus 0 SEEN Discharge Plan Triage Chief Complaint: Weakness ED Provider: Pool Lopez Dx/Rx/DC Orders Clinical Impression: Bilateral leg weakness, Pyuria Instructions: ED Weakness Uncertain Cause Prescriptions: No Action metronidazole 0.75 % cream 1 applic TOPICAL DAILY acetaminophen 500 MG tablet 1,000 mg PO PRN hydrochlorothiazide 12.5 MG capsule 12.5 mg PO DAILY Patient Comments: doxycycline hyclate 20 mg tablet 20 mg PO BID Patient Comments: aspirin [Rika Low Dose Aspirin] 81 mg Tablet,Delayed Release (Dr/Ec) 81 mg PO QHS multivitamin Tablet 1 tab PO DAILY pantoprazole 40 mg Tablet,Delayed Release (Dr/Ec) 40 mg PO DAILY lisinopril 5 mg tablet 5 mg PO DAILY d-mannose Powder 1 ea PO DAILY Rx Instructions: 09/29 teaspoon on cereal each am. Dupixent Pen 300 mg/2 mL pen injector 300 mg subcut .COMPLEX Rx Instructions: 300 mg subcutaneously EVERY 6 WEEKS; donepezil 5 mg tablet 10 mg PO DAILY trazodone 100 mg tablet 100 mg PO QHS furosemide 20 mg tablet 20 mg PO DAILY memantine 10 mg tablet 10 mg PO BID methenamine hippurate 1 gram tablet 1 g PO BID sertraline 25 mg tablet 25 mg PO DAILY triamcinolone acetonide 1 applic topical DAILY PRN (Reason: itching) melatonin 5 mg tablet 5 mg PO QHS NewFlora 10 billion cell capsule 80 mmu cells PO DAILY polyethylene glycol 3350 [ClearLax] 17 gram/dose powder 17 g PO DAILY guaifenesin [Mucinex] 600 mg tablet extended release 12hr 600 mg PO BID Trulance 3 mg tablet 3 mg PO DAILY Patient Comments: ON 12/13/24 BACLOFEN SUPPOSITORY 1 supp OTHER DAILY fosfomycin tromethamine 3 gram packet 1 packet PO QODAY Qty: 1 0RF sulfamethoxazole-trimethoprim 800-160 mg tablet 1 tab PO BID hydrochlorothiazide 12.5 mg tablet 12.5 mg PO DAILY Primary Care Provider: Francisco Bahena Referrals: Francisco Bahena MD [Primary Care Provider] - 1-2 Days if not improving Activity Restrictions/Additional Instructions: Finish your prescription for Bactrim that you started a few days ago. Return with increased weakness, new or worsening symptoms. Keep having your physical therapy performed at home. Follow-up with your primary care provider. Your urine was sent for culture. You will receive a phone call if it is not sensitive to Bactrim. Print Language: Turkish Disposition Disposition: Home, Self Care
[2025-01-29] MEDS: 0.9% Normal Saline (500mL Bag) 500 ML 1000 ML IV (20:48)
[2025-01-29 21:02] LABS: Absolute Lymphocyte Count 1.27 X10^3/uL (0.83-4.51); Absolute Neutrophil Count 2.2 X10^3/uL (2.0-7.7); Basophil# 0.01 X10^3/uL; Basophil% 0.2 % (0-1); Eosinophil# 0.03 X10^3/uL; Eosinophils% 0.7 % (0-5); Hemoglobin 11.7 g/dL (13.0-16.5); Lymphocyte # 1.27 X10^3/ul (0.83-4.51); Lymphocyte % 31.1 % (19-41); Mean Corp Hgb Conc 32.5 g/dL (32-36); Mean Corpuscular Hgb 32.2 pg (27.0-32.0); Mean Corpuscular Volume 99.2 fL (80-94); Mean Platelet Vol. 9.2 fl (6.2-12.0); Monocyte# 0.54 X10^3/uL; Monocyte% 13.2 % (0-10); NRBC Flagged by Analyzer 0 % (0-5); Neutrophil # 2.22 X10^3/uL (2.7-7.7); Neutrophil % 54.6 % (47-70); Platelet Count 164 K/mm3 (150-450); RBC Distribution Width CV 12.9 % (11.6-14.6); RBC Distribution Width SD 47.2 fl (35.1-43.9); Red Blood Count 3.63 M/mm3 (4.6-6.2); White Blood Count 4.1 K/mm3 (4.4-11.0)
[2025-01-29 21:30] VITALS: BP 134/56; PULSE 69; RESP 16; TEMP 37.1; O2SAT 100
[2025-01-29] MEDS: 0.9% Normal Saline (1000mL) 1,000 ML 999 ML IV (21:37)
[2025-01-29 21:52] LABS: Bacteria 0 SEEN /hpf (None Seen); Mucous, Urine 0 SEEN /hpf (<or=2+)
[2025-01-29 22:00] LABS: Color, Urine Yellow (Yellow); Glucose, Dipstick Normal (Normal); Ketone-Dipstick Negative (Negative); Leukocyte Esterase-Dipstick 100 /ul (Negative); Nitrite-Dipstick Negative (Negative); Occult Blood-Urine 25 /ul (Negative); Protein-Dipstick 15 mg/dl (Negative); Specific Gravity, Urine 1.015 (1.002-1.030); Urine Bilirubin Dipstick Negative (Negative); Urine Clarity Sl. Cloudy (Clear); Urine Urobilinogen Normal (Normal)
[2025-01-29 22:13] LABS: Anion Gap 11 (5-15); BUN 23 mg/dL (4-19); BUN/Creat Ratio 16.8 RATIO (10-20); Calcium,Total 8.9 mg/dL (7.6-11.0); Carbon Dioxide 23.1 mmol/L (21.0-32.0); Chloride 103 mmol/L (98-108); Creatinine, Serum 1.39 mg/dL (0.70-1.20); EST Glomerular Filtration Rate 51 (>60); Estimated Creatinine Clearance 39.64 ml/min (50-250); Glucose 127 mg/dL (70-99); Potassium 3.9 mmol/L (3.3-5.1); Sodium Level 137 mmol/L (133-145)
[2025-01-29 22:38] LABS: Red Blood Cells-Urine 0-5 SEEN /hpf (0-5); White Blood Cells 10-25 SEEN /hpf (0-5)
[2025-01-29 22:39] LABS: Squamous Epithelial Cells - UA 0-5 SEEN /hpf (0-5)
[2025-01-29 22:52] VITALS: BP 142/75; PULSE 72; RESP 16; TEMP 36.9; O2SAT 100
== END 2025-01-29 22:54 | disposition home or self-care (01) ==
PROVIDERS: Emergency Provider Emergency Medicine; PCP Family Medicine; Visit Provider Emergency Medicine
DX: M62.81 Muscle weakness (generalized) (principal); F03.90 Unspecified dementia, unspecified severity, without behavioral disturbance, psychotic disturbance, mood disturbance, and anxiety; R82.81 Pyuria; I12.9 Hypertensive chronic kidney disease with stage 1 through stage 4 chronic kidney disease, or unspecified chronic kidney disease; N18.2 Chronic kidney disease, stage 2 (mild); Z79.82 Long term (current) use of aspirin; Z79.899 Other long term (current) drug therapy; Z87.891 Personal history of nicotine dependence
CPT/HCPCS: 80048; 81001; 85025; 87086; 87088; 96360; 96361; 99285; A4216

== ENCOUNTER 2025-04-12 14:25 | Observation (INO) | payer MEDICARE, SELFPAY ==
[2025-04-12 14:31] VITALS: BP 145/43; PULSE 64; RESP 16; TEMP 36.8; O2SAT 100; BMI 23.7
--- NOTE | 2025-04-12 15:08 | EX.ED.DYSGE1 ---
HPI History of Present Illness Chief Complaint: General Illness Detail of Chief Complaint: Weakness and failure to thrive Informant: patient and spouse/S.O. Narrative Narrative: Patient presents to the emergency department complaint generalized weakness for at least several weakness. Patient states that he is fallen 3 times in the last 2 months. Patient saw his back surgeon who did his initial spinal fusion a month ago. He was told he would need another surgery and it was scheduled for April. Yesterday patient decided he did not want to go through another surgery. He states that at times he just feels like his legs are getting give out. He has not fallen recently. Patient feels that he needs a snf placement and called his primary care physician who advised him to come to the emergency department to get admitted for placement. Patient denies fever cough or recent illness. Denies chest pain or shortness of breath. Denies abdominal pain. Denies vomiting or diarrhea. [facility] Medical History History of ESBL E. coli infection Anxiety Depression Kidney stones Kidney disease Former smoker Anxiety and depression HLD (hyperlipidemia) CKD (chronic kidney disease), stage II Dementia Left inguinal hernia Groin pain Inguinal hernia bilateral, non-recurrent Right inguinal hernia History of kidney stones History of hiatal hernia Abdominal pain BPH (benign prostatic hyperplasia) Arthritis History of back problems Hypertension Home Medications ?Medication ?Instructions ?Recorded ?Last Taken ?Type acetaminophen 500 mg tablet 1,000 mg PO PRN Pain 04/03/17 Unknown History doxycycline hyclate 20 mg tablet 20 mg PO BID infection 03/13/19 01/07/25 History metronidazole 0.75 % topical cream 1 applic topical DAILY skin health 07/16/19 01/07/25 History aspirin 81 mg tablet,delayed 81 mg PO QHS heart health 01/28/21 01/07/25 History release (Rika Low Dose Aspirin) multivitamin 1 tab PO DAILY vitamin 05/18/21 01/07/25 History pantoprazole 40 mg tablet,delayed 40 mg PO DAILY reflux 05/03/22 01/07/25 History release d-mannose 1 ea PO DAILY 09/24/23 01/07/25 History dupilumab 300 mg/2 mL subcutaneous 300 mg subcut .COMPLEX skin health 09/24/23 Unknown History pen injector ([employer] and [employer]) lisinopril 5 mg tablet 5 mg PO DAILY blood pressure 09/24/23 Unknown History Held on 04/12/25. Instructions: Ordered BACLOFEN SUPPOSITORY 1 supp OTHER DAILY CONSITPATION 01/08/25 Unknown History Lactobacillus acidophilus 10 80 mmu cells PO DAILY 01/08/25 01/07/25 History billion cell capsule (NewFlora) donepezil 5 mg tablet 10 mg PO DAILY 01/08/25 01/07/25 History furosemide 20 mg tablet 20 mg PO DAILY 01/08/25 01/07/25 History guaifenesin 600 mg tablet, 600 mg PO BID 01/08/25 01/07/25 History extended release 12 hr (Mucinex) melatonin 5 mg tablet 5 mg PO QHS 01/08/25 01/07/25 History memantine 10 mg tablet 10 mg PO BID 01/08/25 01/07/25 History methenamine hippurate 1 gram tablet 1 g PO BID 01/08/25 01/07/25 History plecanatide 3 mg tablet (Trulance) 3 mg PO DAILY 01/08/25 Unknown History Held on 01/29/25. Instructions: reports being on hold 12/13/2024 sertraline 25 mg tablet 25 mg PO DINNER 01/08/25 01/07/25 History trazodone 100 mg tablet 100 mg PO QHS 01/08/25 01/07/25 History triamcinolone acetonide 1 applic topical DAILY PRN itching 01/08/25 01/07/25 History fosfomycin tromethamine 3 gram 1 packet PO QODAY 3 doses #1 ea 01/10/25 Unknown Rx oral packet hydrochlorothiazide 12.5 mg tablet 12.5 mg PO DAILY 01/29/25 Unknown History sulfamethoxazole 800 1 tab PO BID 01/29/25 Unknown History mg-trimethoprim 160 mg tablet ipratropium bromide 21 mcg (0.03 intranasal 04/12/25 Unknown History %) nasal spray polyethylene glycol 3350 17 4 g PO DAILY 04/12/25 Unknown History gram/dose oral powder (Miralax) sertraline 25 mg tablet (Zoloft) 25 mg PO LUNCH 04/12/25 Unknown History Allergy/AdvReac Type Severity Reaction Status Date / Time Iodinated Contrast Media Allergy Hives Verified 04/12/25 14:35 (CONTRASTS) azelaic acid (From Finacea) AdvReac Rash Verified 04/12/25 14:35 levofloxacin AdvReac Rash Verified 04/12/25 14:35 meloxicam (From Mobic) AdvReac Nausea Verified 04/12/25 14:35 misoprostol (From Cytotec) AdvReac Nausea Verified 04/12/25 14:35 nabumetone (From Relafen) AdvReac Nausea Verified 04/12/25 14:35 NSAIDS (Non-Steroidal AdvReac Nausea Verified 04/12/25 14:35 Anti-Inflamma sulfamethoxazole (From AdvReac Nausea Verified 04/12/25 14:35 Bactrim) terbinafine AdvReac Nausea Verified 04/12/25 14:35 trimethoprim (From Bactrim) AdvReac Nausea Verified 04/12/25 14:35 valdecoxib (From Bextra) AdvReac Other Verified 04/12/25 14:35 Family History Father Colon cancer Mother Cancer lung Hypertension Brother Cancer Surgical History History of cholecystectomy History of left inguinal hernia repair (~07/18/19) History of right inguinal hernia repair History of colonoscopy (~02/2019) history repair left thumb History of hemorrhoidectomy History of bilateral cataract extraction history ureteral stent insertion History of laparoscopic cholecystectomy history lap hiatal hernia repair Hx of repair of right rotator cuff Hx of repair of left rotator cuff history exacorporeal shock wave lithrotripsy Social History household members: spouse Smoking Status: Former smoker alcohol intake: current alcohol intake frequency: a few times a month substance use type: does not use ROS ROS ED Review of Systems ROS Unobtainable: other Constitutional Constitutional ED: Reports lethargy; Denies chills, fever(s), sweats or weight loss Eyes Eyes: Denies blurry vision, change in vision or diplopia ENT ENT ED: Denies rhinorrhea or sore throat Cardiovascular Cardiovascular: Denies chest pain, orthopnea or racing heartbeat Respiratory/Chest Respiratory/Chest: Denies cough, dyspnea, dyspnea on exertion, orthopnea or sputum Gastrointestinal Gastrointestinal: Denies abdominal pain, diarrhea, nausea or vomiting Genitourinary Genitourinary ED: Denies dysuria, hematuria or urinary frequency Musculoskeletal Musculoskeletal: Denies arthralgias, back pain, myalgias or neck pain Integumentary Denies abscess, Abrasions or rash Neurologic Neurologic: Reports weakness; Denies headache(s) Psychiatric Psychiatric: Denies anxiety, depression or suicidal thoughts Endocrine Endocrinology: Denies polydipsia, polyphagia or polyuria Hematologic/Lymphatic Hematologic/Lymphatic: Denies easy bleeding, easy bruising or lymphadenopathy Allergic/Immunologic Allergic/Immunologic ED: Denies mouth swelling, tongue swelling or urticaria EXAM Physical Exam Const Vital Signs: 04/12/25 14:31 04/12/25 14:53 Temperature 98.2 F Temperature Source Oral Pulse Rate 64 Respiratory Rate 16 Respiratory Effort Normal Non-Labored Respiratory Pattern Normal Blood Pressure 145/43 H Blood Pressure Mean 77 Pulse Ox 100 Oxygen Delivery Method Room Air Positive well nourished and well developed General Appearance ED: well developed and NAD HEENT Reports TM's clear and moist mucous membranes normocephalic and atraumatic; Negative for trauma or tenderness Tympanic Membrane ED: Yes TM's clear Eyes PERRL and EOMs intact bilaterally General Eye ED: Negative for pale conjunctiva or scleral icterus Neck no lymphadenopathy, supple and no JVD General: Negative for tenderness Chest Wall inspection of chest normal and palpation of chest normal Chest: Negative for tenderness Resp normal respiratory effort and clear to auscultation bilaterally Effort and Inspection: Negative for respiratory distress or pain with movement Auscultation: Negative for rhonchi, wheezes or diminished lung sounds Cardio regular rate, regular rhythm, S1 normal heart sound, S2 normal heart sound and no murmurs Peripheral Pulses: pulses 2+ throughout GI normal to inspection, nondistended, normoactive bowel sounds, soft to palpation, non-tender, non-distended and no masses Back/Spine no CVA tenderness and no thoracic nor lumbar tenderness Extremity normal to inspection General Extremety ED: Negative for edema General Extremity: Negative for edema Neuro oriented x3, CN's II-XII intact bilaterally, no sensory deficits noted and gait normal Neuro Narrative: No focal neurologic deficits on exam. Able to lift both legs off the bed without difficulty for count of 10. Sensorium / Orientation: awake, alert, oriented to person, oriented to place and oriented to time Motor Exam: strength 5/5 throughout and strength abnormal Psych mental status grossly normal Skin no rashes or lesions noted and no wounds MDM MDM MDM Narrative Medical decision making narrative: Patient presenting with generalized weakness and requesting admission for placement for extended care facility. Clinically looks well. IV line established. CBC with differential obtained show, 4.5 with hemoglobin 13 and platelet count of 165. Chemistry is unremarkable. BUN 18 and creatinine 0.82. Urinalysis obtained with signs of infection with 500 leukocyte esterase as well as 25-50 WBCs and +3 bacteria. Urine culture was sent. Patient started on Rocephin 1 g IV. EKG obtained showed a sinus rhythm with rate of 54 bpm with no acute ST segment changes. Case will be discussed with hospitalist to evaluate patient for admission Lab Data Attestation: I reviewed the patient's lab results. Labs: Laboratory Results - last 24 hr 04/12/25 15:23 WBC 4.5 RBC 4.08 L Hgb 13.1 Hct 39.7 L MCV 97.3 H MCH 32.1 H MCHC 33.0 RDW Std Deviation 45.0 H RDW Coeff of Ezequiel 12.6 Plt Count 169 MPV 9.3 Immature Gran % (Auto) 0.200 Neut % (Auto) 54.9 Lymph % (Auto) 33.8 [place] % (Auto) 9.5 Eos % (Auto) 0.9 Baso % (Auto) 0.7 Absolute Neuts (auto) 2.5 Absolute Lymphs (auto) 1.53 Nucleated RBC % 0 Sodium 139 Potassium 4.0 Chloride 102 Carbon Dioxide 26.1 Anion Gap 11 BUN 18 Creatinine 0.82 Estim Creat Clear Calc 67.20 Est GFR (MDRD) Non-Af 88 BUN/Creatinine Ratio 22.1 H Glucose 100 H Calcium 9.4 Urine Color Yellow Urine Clarity Sl. Cloudy Urine pH 6.5 Ur Specific [place] 1.010 Urine Protein 15 H Urine Glucose (UA) Normal Urine Ketones Negative Urine Occult Blood 25 H Urine Nitrite Negative Urine Bilirubin Negative Urine Urobilinogen Normal Ur Leukocyte Esterase 500 H Urine RBC 0-5 SEEN Urine WBC 25-50 SEEN Ur Squamous Epith Cells 0 SEEN Urine Bacteria 3+ Urine Mucus 0 SEEN Radiography Diagnostic Testing: Clinical Impression(s) from Imaging Studies Chest X-Ray 04/12/25 15:30 IMPRESSION: 1. No evidence of acute cardiopulmonary pathology. 2. Small hiatal hernia. Reading Location: [place] [id number] 1 view chest x-ray obtained interpreted by myself as no evidence of infiltrate or pneumothorax or acute disease process. Radiology in agreement felt there was a small hiatal hernia. 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 Discharge Plan Triage Chief Complaint: General Illness ED Provider: Marlo Echevarria Dx/Rx/DC Orders Clinical Impression: Weakness, Acute UTI, Falls Prescriptions: No Action metronidazole 0.75 % cream 1 applic TOPICAL DAILY acetaminophen 500 MG tablet 1,000 mg PO PRN doxycycline hyclate 20 mg tablet 20 mg PO BID Patient Comments: aspirin [Rika Low Dose Aspirin] 81 mg Tablet,Delayed Release (Dr/Ec) 81 mg PO QHS multivitamin Tablet 1 tab PO DAILY pantoprazole 40 mg Tablet,Delayed Release (Dr/Ec) 40 mg PO DAILY lisinopril 5 mg tablet 5 mg PO DAILY d-mannose Powder 1 ea PO DAILY Rx Instructions: 1/4 teaspoon on cereal each am. Dupixent Pen 300 mg/2 mL pen injector 300 mg subcut .COMPLEX Rx Instructions: 300 mg subcutaneously EVERY 8 WEEKS; donepezil 5 mg tablet 10 mg PO DAILY trazodone 100 mg tablet 100 mg PO QHS furosemide 20 mg tablet 20 mg PO DAILY memantine 10 mg tablet 10 mg PO BID methenamine hippurate 1 gram tablet 1 g PO BID sertraline 25 mg tablet 25 mg PO DINNER triamcinolone acetonide 1 applic topical DAILY PRN (Reason: itching) melatonin 5 mg tablet 5 mg PO QHS NewFlora 10 billion cell capsule 80 mmu cells PO DAILY guaifenesin [Mucinex] 600 mg tablet extended release 12hr 600 mg PO BID Trulance 3 mg tablet 3 mg PO DAILY Patient Comments: ON 12/13/24 BACLOFEN SUPPOSITORY 1 supp OTHER DAILY fosfomycin tromethamine 3 gram packet 1 packet PO QODAY Qty: 1 0RF sulfamethoxazole-trimethoprim 800-160 mg tablet 1 tab PO BID hydrochlorothiazide 12.5 mg tablet 12.5 mg PO DAILY polyethylene glycol 3350 [Miralax] 17 gram/dose powder 4 g PO DAILY sertraline [Zoloft] 25 mg tablet 25 mg PO LUNCH Rx Instructions: lunch ipratropium bromide 21 mcg (0.03 %) spray,non-aerosol INTRANASAL Patient Comments: [NO ORIGINAL SIG] Primary Care Provider: Francisco Bahena Referrals: Francisco Bahena MD [Primary Care Provider] - Print Language: Arabic Disposition Disposition: Acute Care Hospital [facility]
[2025-04-12 15:28] LABS: Mucous, Urine 0 SEEN /hpf (<or=2+); Squamous Epithelial Cells - UA 0 SEEN /hpf (0-5)
--- NOTE | 2025-04-12 15:30 | RAD_ITS ---
PROCEDURE: CHEST 1 VIEW (PORTABLE) 04/12/2025 REASON FOR EXAM: WEAKNESS TECHNIQUE: Frontal view of the chest. COMPARISON: Portable chest, 09/24/2023 FINDINGS: The lungs are clear. The heart size is normal. There is calcific vascular disease of the thoracic aorta. There is a small hiatal hernia. 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 RAD/Chest 1 View (Portable) IMPRESSION: 1. No evidence of acute cardiopulmonary pathology. 2. Small hiatal hernia. Reading Location: [place] [id number]
[2025-04-12 15:34] LABS: Color, Urine Yellow (Yellow); Glucose, Dipstick Normal (Normal); Ketone-Dipstick Negative (Negative); Leukocyte Esterase-Dipstick 500 /ul (Negative); Nitrite-Dipstick Negative (Negative); Occult Blood-Urine 25 /ul (Negative); Protein-Dipstick 15 mg/dl (Negative); Specific Gravity, Urine 1.010 (1.002-1.030); Urine Bilirubin Dipstick Negative (Negative)
[2025-04-12 15:38] LABS: Hematocrit 39.7 % (40-54); Hemoglobin 13.1 g/dL (13.0-16.5); Immature Granulocytes Count 0.010 X10^3/uL (0.0-0.0); Mean Corp Hgb Conc 33.0 g/dL (32-36); Mean Corpuscular Volume 97.3 fL (80-94); Mean Platelet Vol. 9.3 fl (6.2-12.0); NRBC Flagged by Analyzer 0 % (0-5); Platelet Count 169 K/mm3 (150-450); RBC Distribution Width CV 12.6 % (11.6-14.6); RBC Distribution Width SD 45.0 fl (35.1-43.9); Red Blood Count 4.08 M/mm3 (4.6-6.2); White Blood Count 4.5 K/mm3 (4.4-11.0)
[2025-04-12] MEDS: 0.9% Normal Saline (1000mL) 1,000 ML 150 ML IV (15:49)
[2025-04-12 15:54] LABS: Red Blood Cells-Urine 0-5 SEEN /hpf (0-5)
[2025-04-12 16:18] LABS: Anion Gap 11 (5-15); BUN 18 mg/dL (4-19); BUN/Creat Ratio 22.1 RATIO (10-20); Calcium,Total 9.4 mg/dL (7.6-11.0); Carbon Dioxide 26.1 mmol/L (21.0-32.0); Chloride 102 mmol/L (98-108); Estimated Creatinine Clearance 67.20 ml/min (50-250); Glucose 100 mg/dL (70-99); Potassium 4.0 mmol/L (3.3-5.1)
[2025-04-12 16:30] VITALS: BP 135/58; PULSE 57; RESP 20; O2SAT 100
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
[2025-04-12 17:06] VITALS: BP 145/72; PULSE 75; RESP 18; TEMP 36.6; O2SAT 96
[2025-04-12 17:33] VITALS: BP 130/62; PULSE 55; RESP 12; TEMP 36.5; O2SAT 100
[2025-04-12 17:34] VITALS: BMI 23.4
[2025-04-12] MEDS: 0.9% Normal Saline (1000mL) 1,000 ML 100 ML IV (18:21)
[2025-04-12 20:22] VITALS: BP 132/60; PULSE 59; RESP 16; TEMP 37; O2SAT 98
[2025-04-12] MEDS: Aspirin E.C. 81 MG Tablet PO (20:25)
[2025-04-12] MEDS: Memantine Hydrochloride 10 MG Tablet PO (20:26)
[2025-04-12 23:55] VITALS: BP 129/57; PULSE 70; RESP 16; TEMP 36.8; O2SAT 95
[2025-04-13 03:40] VITALS: BP 133/65; PULSE 63; RESP 16; TEMP 36.6; O2SAT 95
[2025-04-13 05:48] LABS: Hematocrit 32.6 % (40-54); Hemoglobin 10.8 g/dL (13.0-16.5); Immature Granulocytes Count 0.010 X10^3/uL (0.0-0.0); Mean Corp Hgb Conc 33.1 g/dL (32-36); Mean Corpuscular Volume 94.8 fL (80-94); Mean Platelet Vol. 9.2 fl (6.2-12.0); NRBC Flagged by Analyzer 0 % (0-5); Platelet Count 159 K/mm3 (150-450); RBC Distribution Width CV 12.4 % (11.6-14.6); RBC Distribution Width SD 42.9 fl (35.1-43.9); Red Blood Count 3.44 M/mm3 (4.6-6.2); White Blood Count 4.2 K/mm3 (4.4-11.0)
[2025-04-13 06:27] LABS: Anion Gap 8 (5-15); BUN 16 mg/dL (4-19); BUN/Creat Ratio 20.0 RATIO (10-20); Calcium,Total 8.7 mg/dL (7.6-11.0); Carbon Dioxide 25.2 mmol/L (21.0-32.0); Chloride 106 mmol/L (98-108); Estimated Creatinine Clearance 68.88 ml/min (50-250); Glucose 89 mg/dL (70-99); Potassium 3.4 mmol/L (3.3-5.1); Vitamin B12 796 pg/mL (180-914)
--- NOTE | 2025-04-13 07:48 | PCM.PN.HOSP ---
Reason for Visit Chief Complaint: Weakness and falls Subjective Subjective Patient is an 84-year-old gentleman who presented with progressive generalized weakness and falls. Urinalysis obtained on admission came back consistent with UTI admitted to regular nursing floor for further management Objective Data Objective Data Vital Signs: Vital Signs Temp Pulse Resp BP Pulse Ox O2 Del Method 97.9 F 63 16 133/65 H 95 Room Air 04/13/25 03:40 04/13/25 03:40 04/13/25 03:40 04/13/25 03:40 04/13/25 03:40 04/13/25 03:40 Oxygen Delivery Method Room Air Weight: 69.853 kg Body Mass Index (BMI) 23.4 Intake & Output: Intake and Output for Last 24 Hours 04/11/25 04/12/25 04/13/25 23:59 23:59 23:59 Intake Total 1270 / 1270 1300 / 1300 Output Total 400 / 400 Balance 870 / 870 1300 / 1300 Lab / Micro Data 04/13/25 05:13 04/13/25 05:13 Labs: Laboratory Results - last 24 hr 04/12/25 15:23: WBC 4.5, RBC 4.08 L, Hgb 13.1, Hct 39.7 L, MCV 97.3 H, MCH 32.1 H, MCHC 33.0, RDW Std Deviation 45.0 H, RDW Coeff of Ezequiel 12.6, Plt Count 169, MPV 9.3, Immature Gran % (Auto) 0.200, Neut % (Auto) 54.9, Lymph % (Auto) 33.8, [place] % (Auto) 9.5, Eos % (Auto) 0.9, Baso % (Auto) 0.7, Absolute Neuts (auto) 2.5, Absolute Lymphs (auto) 1.53, Nucleated RBC % 0, Sodium 139, Potassium 4.0, Chloride 102, Carbon Dioxide 26.1, Anion Gap 11, BUN 18, Creatinine 0.82, Estim Creat Clear Calc 67.20, Est GFR (MDRD) Non-Af 88, BUN/Creatinine Ratio 22.1 H, Glucose 100 H, Calcium 9.4, Urine Color Yellow, Urine Clarity Sl. Cloudy, Urine pH 6.5, Ur Specific [place] 1.010, Urine Protein 15 H, Urine Glucose (UA) Normal, Urine Ketones Negative, Urine Occult Blood 25 H, Urine Nitrite Negative, Urine Bilirubin Negative, Urine Urobilinogen Normal, Ur Leukocyte Esterase 500 H, Urine RBC 0-5 SEEN, Urine WBC 25-50 SEEN, Ur Squamous Epith Cells 0 SEEN, Urine Bacteria 3+, Urine Mucus 0 SEEN 04/13/25 05:13: WBC 4.2 L, RBC 3.44 L, Hgb 10.8 L, Hct 32.6 L, MCV 94.8 H, MCH 31.4, MCHC 33.1, RDW Std Deviation 42.9, RDW Coeff of Ezequiel 12.4, Plt Count 159, MPV 9.2, Immature Gran % (Auto) 0.200, Neut % (Auto) 51.3, Lymph % (Auto) 35.5, [place] % (Auto) 10.6 H, Eos % (Auto) 1.4, Baso % (Auto) 1.0, Absolute Neuts (auto) 2.1, Absolute Lymphs (auto) 1.48, Nucleated RBC % 0, Sodium 139, Potassium 3.4, Chloride 106, Carbon Dioxide 25.2, Anion Gap 8, BUN 16, Creatinine 0.78, Estim Creat Clear Calc 68.88, Est GFR (MDRD) Non-Af 89, BUN/Creatinine Ratio 20.0, Glucose 89, Calcium 8.7, Vitamin B12 796, TSH 2.590 Radiography Diagnostic Testing: Radiology Impression Chest X-Ray 04/12/25 15:30 IMPRESSION: 1. No evidence of acute cardiopulmonary pathology. 2. Small hiatal hernia. Reading Location: [place] [address] Physical Exam Narrative GENERAL: cooperative HEENT: Atraumatic; normocephalic EYES; Anicteric, Normal Conjunctiva NECK; supple, normal thyroid, RESPIRATORY: Diminished to auscultation CARDIOVASCULAR: Regular S1 S2, GI: soft, normoactive bowel sounds, : No Renal angle tenderness; EXTREMITIES: No edema, no clubbing, MUSCULOSKELETAL: no muscle wasting NEURO: Awake; no lateralizing signs. SKIN: No Rash PSYCH; Flat affect Assessment & Plan Assessment/Plan (1) Weakness: (2) UTI (urinary tract infection): PLAN: Plan Patient is an 84-year-old gentleman who presented with progressive generalized weakness and falls. Urinalysis obtained on admission came back consistent with UTI admitted to regular nursing floor for further management 1. Acute complicated UTI ? Patient was started on Ceftriaxone admitted to regular floor urine culture sent 2. Physical deconditioning/physical debility ? Requested for PT OT eval and manager social responsibility to assist with discharge planning Hypertension ? Blood pressure controlled, home medications continued with dose adjustment as needed 4. History of chronic back pain with spinal fusion in the past ? Pain meds as needed in addition to PT/OT as ordered above 5. GERD ? Patient is on PPI 6. Depression with anxiety ? Patient's sertraline 7. Dementia - Patient is on memantine continue 8. DVT prophylaxis ? Subcu Lovenox Charges/Coding Visit Charges Inpatient E&M: 61022 Subs Hosp L2
[2025-04-13] MEDS: Lactobacillis Acidophilus 1 CAP PO (08:59)
[2025-04-13] MEDS: Memantine Hydrochloride 10 MG Tablet PO ×2 (08:59→21:15)
[2025-04-13] MEDS: Polyethylene Glycol 3350 17 GM PACKET PO (09:03)
[2025-04-13] MEDS: Lidocaine 5% Patch 1 PATCH TOPICAL (09:04)
[2025-04-13 09:40] VITALS: BP 134/61; PULSE 63; RESP 16; TEMP 37.1; O2SAT 94
--- NOTE | 2025-04-13 11:24 | CASEMGMT ---
Social Work SW created in [facility] a list of group home facilities in network w/pt's insurance, in pt's preferred geographic area and complete w/quality and resource use data. OMAR Jean
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
[2025-04-13 15:47] VITALS: BP 125/63; PULSE 62; RESP 16; TEMP 37.2; O2SAT 98
[2025-04-13 21:14] VITALS: BP 149/68; PULSE 63; RESP 15; TEMP 36.8; O2SAT 98
[2025-04-13] MEDS: MELATONIN 10 MG TABLET PO (21:14)
[2025-04-13] MEDS: Aspirin E.C. 81 MG Tablet PO (21:15)
[2025-04-14 05:30] VITALS: BP 116/59; PULSE 60; RESP 15; TEMP 36.6; O2SAT 96
[2025-04-14 06:25] LABS: Hematocrit 35.0 % (40-54); Hemoglobin 11.6 g/dL (13.0-16.5); Immature Granulocytes Count 0.010 X10^3/uL (0.0-0.0); Mean Corp Hgb Conc 33.1 g/dL (32-36); Mean Corpuscular Volume 95.1 fL (80-94); Mean Platelet Vol. 8.9 fl (6.2-12.0); NRBC Flagged by Analyzer 0 % (0-5); Platelet Count 167 K/mm3 (150-450); RBC Distribution Width CV 12.2 % (11.6-14.6); RBC Distribution Width SD 42.5 fl (35.1-43.9); Red Blood Count 3.68 M/mm3 (4.6-6.2); White Blood Count 3.5 K/mm3 (4.4-11.0)
[2025-04-14 07:08] LABS: Anion Gap 10 (5-15); BUN 16 mg/dL (4-19); BUN/Creat Ratio 19.8 RATIO (10-20); Calcium,Total 9.0 mg/dL (7.6-11.0); Carbon Dioxide 26.0 mmol/L (21.0-32.0); Chloride 105 mmol/L (98-108); Estimated Creatinine Clearance 68.88 ml/min (50-250); Glucose 94 mg/dL (70-99); Magnesium 1.9 mg/dL (1.5-2.2); Potassium 3.5 mmol/L (3.3-5.1)
--- NOTE | 2025-04-14 08:00 | PN.HOSP_ITS ---
Reason for Visit Chief Complaint: Weakness and falls Subjective Subjective Patient urine cultures resulted positive for Escherichia coli. Patient remains on appropriate antibiotic therapy Objective Data Objective Data Vital Signs: Vital Signs Temp Pulse Resp BP Pulse Ox O2 Del Method 98 F 60 15 116/59 L 96 Room Air 04/14/25 05:30 04/14/25 05:30 04/14/25 05:30 04/14/25 05:30 04/14/25 05:30 04/14/25 05:30 Oxygen Delivery Method Room Air Weight: 69.9 kg Body Mass Index (BMI) 23.4 Intake & Output: Intake and Output for Last 24 Hours 04/12/25 04/13/25 04/14/25 23:59 23:59 23:59 Intake Total 1270 / 1270 2300 / 2300 200 / 200 Output Total 400 / 400 100 / 100 50 / 50 Balance 870 / 870 2200 / 2200 150 / 150 Lab / Micro Data 04/14/25 06:11 04/14/25 06:11 Labs: Laboratory Results - last 24 hr 04/14/25 06:11: WBC 3.5 L, RBC 3.68 L, Hgb 11.6 L, Hct 35.0 L, MCV 95.1 H, MCH 31.5, MCHC 33.1, RDW Std Deviation 42.5, RDW Coeff of Ezequiel 12.2, Plt Count 167, MPV 8.9, Immature Gran % (Auto) 0.300, Neut % (Auto) 47.7, Lymph % (Auto) 39.9, [place] % (Auto) 9.9, Eos % (Auto) 1.4, Baso % (Auto) 0.8, Absolute Neuts (auto) 1.7 L, Absolute Lymphs (auto) 1.41, Nucleated RBC % 0, Sodium 140, Potassium 3.5, Chloride 105, Carbon Dioxide 26.0, Anion Gap 10, BUN 16, Creatinine 0.78, Estim Creat Clear Calc 68.88, Est GFR (MDRD) Non-Af 89, BUN/Creatinine Ratio 19.8, Glucose 94, Calcium 9.0, Phosphorus 3.0, Magnesium 1.9 Micro: Microbiology 04/12/25 15:23 Urine, Clean Catch Urine Culture - Final Escherichia coli Physical Exam Narrative GENERAL: cooperative HEENT: Atraumatic; normocephalic EYES; Anicteric, Normal Conjunctiva NECK; supple, normal thyroid, RESPIRATORY: Diminished to auscultation CARDIOVASCULAR: Regular S1 S2, GI: soft, normoactive bowel sounds, : No Renal angle tenderness; EXTREMITIES: No edema, no clubbing, MUSCULOSKELETAL: no muscle wasting NEURO: Awake; no lateralizing signs. SKIN: No Rash PSYCH; Flat affect Assessment & Plan Assessment/Plan (1) Weakness: (2) UTI (urinary tract infection): PLAN: Plan Patient is an 84-year-old gentleman who presented with progressive generalized weakness and falls. Urinalysis obtained on admission came back consistent with UTI admitted to regular nursing floor for further management 1. Acute complicated UTI ? Patient was started on Ceftriaxone admitted to regular floor urine culture sent ? 04/14/2025;Patient urine cultures resulted positive for Escherichia coli. Patient remains on appropriate antibiotic therapy 2. Physical deconditioning/physical debility ? Requested for PT OT eval and child protective services social worker to assist with discharge planning ? 04/14/2025; patient was seen in consultation by case management patient and family provided a list of SNF facilities 3. Hypertension ? Blood pressure controlled, home medications continued with dose adjustment as needed 4. History of chronic back pain with spinal fusion in the past ? Pain meds as needed in addition to PT/OT as ordered above 5. GERD ? Patient is on PPI 6. Depression with anxiety ? Patient's sertraline 7. Dementia - Patient is on memantine continue 8. DVT prophylaxis ? Subcu Lovenox Charges/Coding Visit Charges Inpatient E&M: 92084 Subs Hosp L2
[2025-04-14] MEDS: Polyethylene Glycol 3350 17 GM PACKET PO (10:50)
[2025-04-14] MEDS: Memantine Hydrochloride 10 MG Tablet PO ×2 (10:53→19:59)
[2025-04-14] MEDS: Lactobacillis Acidophilus 1 CAP PO (10:55)
[2025-04-14 11:28] VITALS: BP 128/61; PULSE 71; RESP 16; TEMP 36.2; O2SAT 97
[2025-04-14 15:27] VITALS: BP 126/80; PULSE 83; RESP 18; TEMP 36.9; O2SAT 99
[2025-04-14 19:56] VITALS: BP 142/70; PULSE 67; RESP 15; TEMP 36.9; O2SAT 96
[2025-04-14] MEDS: Aspirin E.C. 81 MG Tablet PO (19:59)
[2025-04-15 02:13] VITALS: BP 133/73; PULSE 74; RESP 16; TEMP 36.5; O2SAT 95
[2025-04-15 07:11] LABS: Hematocrit 37.4 % (40-54); Hemoglobin 12.3 g/dL (13.0-16.5); Immature Granulocytes Count 0.000 X10^3/uL (0.0-0.0); Mean Corp Hgb Conc 32.9 g/dL (32-36); Mean Corpuscular Volume 96.6 fL (80-94); Mean Platelet Vol. 9.0 fl (6.2-12.0); NRBC Flagged by Analyzer 0 % (0-5); Platelet Count 210 K/mm3 (150-450); RBC Distribution Width CV 12.4 % (11.6-14.6); RBC Distribution Width SD 43.6 fl (35.1-43.9); Red Blood Count 3.87 M/mm3 (4.6-6.2); White Blood Count 4.1 K/mm3 (4.4-11.0)
[2025-04-15 07:44] LABS: Anion Gap 11 (5-15); BUN 16 mg/dL (4-19); BUN/Creat Ratio 18.3 RATIO (10-20); Calcium,Total 9.3 mg/dL (7.6-11.0); Carbon Dioxide 26.9 mmol/L (21.0-32.0); Chloride 103 mmol/L (98-108); Estimated Creatinine Clearance 61.91 ml/min (50-250); Glucose 91 mg/dL (70-99); Potassium 3.7 mmol/L (3.3-5.1)
[2025-04-15] MEDS: Lactobacillis Acidophilus 1 CAP PO (09:15)
[2025-04-15] MEDS: Memantine Hydrochloride 10 MG Tablet PO ×2 (09:17→21:14)
[2025-04-15] MEDS: Lidocaine 5% Patch 1 PATCH TOPICAL (09:19)
[2025-04-15] MEDS: Polyethylene Glycol 3350 17 GM PACKET PO (09:20)
[2025-04-15] MEDS: 0.9% Saline Lock 10 ML Syringe IV (09:25)
[2025-04-15 09:37] VITALS: BP 123/64; PULSE 75; RESP 16; TEMP 36.6; O2SAT 96
--- NOTE | 2025-04-15 10:50 | CASEMGMT ---
Discharge Planning [facility] and [facility] have declined d/t no bed availability. [facility] has accepted but can only skill him. If pt needs ltc, he will need to be transferred d/t no ltc beds. SW updated. Any Mercedes DC Planning Asst.
--- NOTE | 2025-04-15 11:25 | CASEMGMT ---
Addendum entered by Toya Koch 04/15/25 16:32: SW received notice that pt refused therapy. SW met with pt and pt to again discuss the need for therapy participation for a skilled stay. SW requested additional choices for [facility] beds in the event that pt is denied skilled services due to multiple refusals. Pt quickly changed the narrative that he is willing to participate if a therapist would return to the room. Pt agreed to apologize for prior behaviors and demeanor and be more cooperative and pleasant with staff. HAYDEE met with PT who agreed to attempt to work with pt again. DCA updated. HAYDEE remains available to follow. ARIE Ceja Original Note: Social Work- HAYDEE met with pt and pt of 64 years to discuss discharge planning. [facility] accepted pt, but does not have any LTC beds at this time. It was explained that if insurance cuts pt prior to LTC bed availability, then pt would need to transfer to another facility. Pt reports that he wants [facility] and will private pay skilled rate if he is unable to obtain precert, stating that he has more than enough resources. Pt reports that she called and spoke with Mehul regrading pt desire for LTC and skilled beds. SW provided education on need for participation in therapy for insurance authorization, as well as coverage of skilled stays, as well as private pay education. Pt explained that has medical issues of own and is unable to provide care to pt, therefore he cannot go home. Pt became tearful reporting that pt needs to care for her self rather than stretching herself too thin. HAYDEE updated DCA of request for precert to be started. ARIE Ceja
[2025-04-15 15:19] VITALS: BP 124/78; PULSE 72; RESP 16; TEMP 36.7; O2SAT 95
--- NOTE | 2025-04-15 15:25 | PCM.PROGNOTE ---
Subjective Subjective Patient seen and examined. I saw him with his nurse by his bedside. He had no active complaints. He had an uneventful night. Review of symptoms otherwise negative. He has remained hemodynamically stable. He is awaiting placement. Objective Data Objective Data Vital Signs: Vital Signs Temp Pulse Resp BP Pulse Ox O2 Del Method 98.1 F 72 16 124/78 H 95 Room Air 04/15/25 15:19 04/15/25 15:19 04/15/25 15:19 04/15/25 15:19 04/15/25 15:19 04/15/25 15:19 Oxygen Delivery Method Room Air Weight: 154 lb 1.65 oz Body Mass Index (BMI) 23.4 Intake & Output: Intake and Output for Last 24 Hours 04/13/25 04/14/25 04/15/25 23:59 23:59 23:59 Intake Total 2300 / 2300 1100 / 1100 350 / 350 Output Total 100 / 100 250 / 250 Balance 2200 / 2200 850 / 850 350 / 350 Lab / Micro Data 04/15/25 06:18 04/15/25 06:18 Labs: Laboratory Results - last 24 hr 04/15/25 06:18: WBC 4.1 L, RBC 3.87 L, Hgb 12.3 L, Hct 37.4 L, MCV 96.6 H, MCH 31.8, MCHC 32.9, RDW Std Deviation 43.6, RDW Coeff of Ezequiel 12.4, Plt Count 210, MPV 9.0, Immature Gran % (Auto) 0.000, Neut % (Auto) 43.6 L, Lymph % (Auto) 44.1 H, Kingfisher % (Auto) 9.6, Eos % (Auto) 2.2, Baso % (Auto) 0.5, Absolute Neuts (auto) 1.8 L, Absolute Lymphs (auto) 1.80, Nucleated RBC % 0, Sodium 141, Potassium 3.7, Chloride 103, Carbon Dioxide 26.9, Anion Gap 11, BUN 16, Creatinine 0.89, Estim Creat Clear Calc 61.91, Est GFR (MDRD) Non-Af 86, BUN/Creatinine Ratio 18.3, Glucose 91, Calcium 9.3 Micro: Microbiology 04/12/25 15:23 Urine, Clean Catch Urine Culture - Final Escherichia coli Physical Exam Const alert, oriented x3, no apparent distress and well nourished General Appearance: cooperative HEENT normocephalic, head/scalp atraumatic, moist oral mucous membranes, oropharynx normal and gingiva normal Eyes PERRL and EOMs intact bilaterally Neck no lymphadenopathy and supple Lymph Lymphatic: no lymphadenopathy noted and no lymphedema noted Resp normal respiratory effort, normal air movement and clear to auscultation bilaterally Cardio regular rate, regular rhythm, S1 normal heart sound, S2 normal heart sound and no murmurs GI normal to inspection, nondistended, normoactive bowel sounds, soft to palpation, non-tender and non-distended Extremity normal capillary refill, no clubbing, cyanosis or edema and no calf tenderness General Extremity: no tenderness to palpation of joints or extremities Skin General Skin Exam: no breakdown Neuro CN's II-XII intact bilaterally, no focal motor deficits, no sensory deficits noted and deep tendon reflexes 2+ bilaterally Motor Exam: general weakness Psych thought process normal, cooperative and affect normal Appearance: appropriate Assessment & Plan Assessment/Plan (1) Acute UTI: (2) Falls: (3) Weakness: PLAN: Plan #Acute UTI On IV ceftriaxone. Urine cultures growing E. coli. Patient remains on IV ceftriaxone. #Hypertension: Continue blood pressure medications-hydrochlorothiazide and lisinopril #Debility and weakness: PT OT on board. Patient awaiting placement in SNF. #History of chronic back pain with spinal fusion in the past: Currently on pain meds. PT OT on board. Fall precautions. #GERD: On PPI #Depression with anxiety: On sertraline #Dementia: On memantine #DVT prophylaxis: SCDs Disposition: Currently awaiting placement. Charges/Coding Visit Charges Inpatient E&M: 81613 Subs Hosp L2
--- NOTE | 2025-04-15 16:07 | CASEMGMT ---
Discharge Planning Updates sent to [facility] with request to submit for precert. Any Mercedes DC Planning Asst.
[2025-04-15 20:48] VITALS: BP 133/74; PULSE 72; RESP 16; TEMP 36.6; O2SAT 95
[2025-04-15] MEDS: BACLOFEN RC (21:10)
[2025-04-15] MEDS: Aspirin E.C. 81 MG Tablet PO (21:14)
[2025-04-16 02:48] VITALS: BP 120/71; PULSE 67; RESP 16; TEMP 36.8; O2SAT 94
[2025-04-16 06:19] LABS: Anion Gap 10 (5-15); BUN 19 mg/dL (4-19); BUN/Creat Ratio 21.5 RATIO (10-20); Calcium,Total 9.0 mg/dL (7.6-11.0); Carbon Dioxide 26.5 mmol/L (21.0-32.0); Chloride 104 mmol/L (98-108); Estimated Creatinine Clearance 63.33 ml/min (50-250); Glucose 91 mg/dL (70-99); Potassium 3.8 mmol/L (3.3-5.1)
[2025-04-16 06:31] LABS: Hematocrit 35.8 % (40-54); Hemoglobin 11.7 g/dL (13.0-16.5); Immature Granulocytes Count 0.010 X10^3/uL (0.0-0.0); Mean Corp Hgb Conc 32.7 g/dL (32-36); Mean Corpuscular Volume 97.0 fL (80-94); Mean Platelet Vol. 8.9 fl (6.2-12.0); NRBC Flagged by Analyzer 0 % (0-5); Platelet Count 220 K/mm3 (150-450); RBC Distribution Width CV 12.4 % (11.6-14.6); RBC Distribution Width SD 44.0 fl (35.1-43.9); Red Blood Count 3.69 M/mm3 (4.6-6.2); White Blood Count 4.6 K/mm3 (4.4-11.0)
[2025-04-16 08:27] VITALS: BP 124/59; PULSE 72; RESP 16; TEMP 36.9; O2SAT 96
[2025-04-16] MEDS: Lactobacillis Acidophilus 1 CAP PO (08:33)
[2025-04-16] MEDS: Lidocaine 5% Patch 1 PATCH TOPICAL (08:34)
[2025-04-16] MEDS: Polyethylene Glycol 3350 17 GM PACKET PO (08:35)
[2025-04-16] MEDS: Memantine Hydrochloride 10 MG Tablet PO ×2 (08:35→21:51)
--- NOTE | 2025-04-16 11:03 | PCM.PROGNOTE ---
Subjective Subjective Patient seen and examined. He was seen with his nurse by his bedside. He had no active complaints. He is awaiting placement. Review of systems otherwise negative. He has remained hemodynamically stable. Objective Data Objective Data Vital Signs: Vital Signs Temp Pulse Resp BP Pulse Ox O2 Del Method 98.4 F 72 16 124/59 H 96 Room Air 04/16/25 08:27 04/16/25 08:27 04/16/25 08:27 04/16/25 08:27 04/16/25 08:27 04/16/25 08:27 Oxygen Delivery Method Room Air Weight: 154 lb 1.65 oz Body Mass Index (BMI) 23.4 Intake & Output: Intake and Output for Last 24 Hours 04/14/25 04/15/25 04/16/25 23:59 23:59 23:59 Intake Total 1100 / 1100 350 / 350 50 / 50 Output Total 250 / 250 Balance 850 / 850 350 / 350 50 / 50 Lab / Micro Data 04/16/25 05:15 04/16/25 05:15 Labs: Laboratory Results - last 24 hr 04/16/25 05:15: WBC 4.6, RBC 3.69 L, Hgb 11.7 L, Hct 35.8 L, MCV 97.0 H, MCH 31.7, MCHC 32.7, RDW Std Deviation 44.0 H, RDW Coeff of Ezequiel 12.4, Plt Count 220, MPV 8.9, Immature Gran % (Auto) 0.200, Neut % (Auto) 41.9 L, Lymph % (Auto) 43.9 H, [place] % (Auto) 10.7 H, Eos % (Auto) 2.4, Baso % (Auto) 0.9, Absolute Neuts (auto) 1.9 L, Absolute Lymphs (auto) 2.02, Nucleated RBC % 0, Sodium 140, Potassium 3.8, Chloride 104, Carbon Dioxide 26.5, Anion Gap 10, BUN 19, Creatinine 0.87, Estim Creat Clear Calc 63.33, Est GFR (MDRD) Non-Af 86, BUN/Creatinine Ratio 21.5 H, Glucose 91, Calcium 9.0 Micro: Microbiology 04/12/25 15:23 Urine, Clean Catch Urine Culture - Final Escherichia coli Physical Exam Const alert, oriented x3, no apparent distress and well nourished General Appearance: cooperative HEENT normocephalic, head/scalp atraumatic, moist oral mucous membranes, oropharynx normal and gingiva normal Eyes PERRL and EOMs intact bilaterally Neck no lymphadenopathy and supple Lymph Lymphatic: no lymphadenopathy noted and no lymphedema noted Resp normal respiratory effort, normal air movement and clear to auscultation bilaterally Cardio regular rate, regular rhythm, S1 normal heart sound, S2 normal heart sound and no murmurs GI normal to inspection, nondistended, normoactive bowel sounds, soft to palpation, non-tender and non-distended Extremity normal capillary refill, no clubbing, cyanosis or edema and no calf tenderness General Extremity: no tenderness to palpation of joints or extremities Skin General Skin Exam: no breakdown Neuro CN's II-XII intact bilaterally, no focal motor deficits, no sensory deficits noted and deep tendon reflexes 2+ bilaterally Motor Exam: general weakness Psych thought process normal, cooperative and affect normal Appearance: appropriate Assessment & Plan Assessment/Plan (1) Acute UTI: (2) Falls: (3) Weakness: PLAN: Plan #Acute UTI On IV ceftriaxone. Urine cultures growing E. coli. Patient remains on IV ceftriaxone. Will switch to PO cefdinir to complete a 5 day course. #Hypertension: Continue blood pressure medications-hydrochlorothiazide and lisinopril #Debility and weakness: PT OT on board. Patient awaiting placement in SNF. #History of chronic back pain with spinal fusion in the past: Currently on pain meds. PT OT on board. Fall precautions. #GERD: On PPI #Depression with anxiety: On sertraline #Dementia: On memantine #DVT prophylaxis: SCDs Disposition: Currently awaiting placement. Charges/Coding Visit Charges Inpatient E&M: 23379 Subs Hosp L2
[2025-04-16] MEDS: Senna/Docusate Sodium 1 Tablet 2 TABLET PO (12:56)
[2025-04-16 19:58] VITALS: BP 127/77; PULSE 76; RESP 16; TEMP 36.8; O2SAT 97
[2025-04-16 21:49] VITALS: BP 129/68; PULSE 79; RESP 16; TEMP 36.7; O2SAT 95
[2025-04-16] MEDS: Aspirin E.C. 81 MG Tablet PO (21:51)
[2025-04-16] MEDS: BACLOFEN RC (21:53)
[2025-04-16] MEDS: 0.9% Saline Lock 10 ML Syringe IV (21:55)
[2025-04-17 04:55] VITALS: BP 113/55; PULSE 72; RESP 16; TEMP 36.6; O2SAT 98
[2025-04-17] MEDS: Polyethylene Glycol 3350 17 GM PACKET PO (08:51)
[2025-04-17] MEDS: Memantine Hydrochloride 10 MG Tablet PO (08:52)
[2025-04-17] MEDS: Lactobacillis Acidophilus 1 CAP PO (08:53)
[2025-04-17 09:25] VITALS: BP 109/63; PULSE 80; RESP 18; TEMP 37.1; O2SAT 96
[2025-04-17 09:26] VITALS: RESP 18; O2SAT 96
--- NOTE | 2025-04-17 10:07 | CASEMGMT ---
Social Work- SW received notice that pt precert denied. Hospitalist updated. HAYDEE coordinated with pt , Natty, who reports the plan will be to private pay. SW provided rate as quoted by [facility]. Pt to make arrangements with [facility]. HAYDEE communicated plans to [facility] and requested [facility] reach out to pt as soon as possible to make arrangements for d/c. HAYDEE remains available to follow. ARIE Ceja
--- NOTE | 2025-04-17 11:03 | PCM.TXEXTCAR ---
Diet Diet Order/Speech Therapy: INPATIENT Hospital Diet / Speech Therapy Order(s) 04/12/25 17:46 Diet: Regular - General Food consistency:: Regular Liquid Consistency:: Regular/Thin Type of Dietary Supplement:: Ensure Plus High Protein Diet Comments: 240mL ensure plus HP w/ breakfast tray DC O2, CPAP, BIPAP needs Home O2 Discharge instructions: No Therapies Weight Bearing: Weight bearing as tolerated Physical Therapy: Eval and Treat Occupational Therapy: Eval and Treat Problem/Diagnosis (1) Acute UTI: Status: Acute Code(s): N39.0 - Urinary tract infection, site not specified (2) Falls: Status: Acute Code(s): R29.6 - Repeated falls (3) Weakness: Status: Acute Code(s): R53.1 - Weakness Plan #Acute UTI On IV ceftriaxone. Urine cultures growing E. coli. Patient remains on IV ceftriaxone. Will switch to PO cefdinir to complete a 5 day course. #Hypertension: Continue blood pressure medications-hydrochlorothiazide and lisinopril #Debility and weakness: PT OT on board. Patient awaiting placement in SNF. #History of chronic back pain with spinal fusion in the past: Currently on pain meds. PT OT on board. Fall precautions. #GERD: On PPI #Depression with anxiety: On sertraline #Dementia: On memantine #DVT prophylaxis: SCDs Disposition: Currently awaiting placement. Allergies/Procedures Done in Hospital Allergies Iodinated Contrast Media (CONTRASTS) Allergy (Verified 04/12/25 14:35) Hives azelaic acid (From Finacea) Adverse Reaction (Verified 04/12/25 14:35) Rash levofloxacin Adverse Reaction (Verified 04/12/25 14:35) Rash meloxicam (From Mobic) Adverse Reaction (Verified 04/12/25 14:35) Nausea misoprostol (From Cytotec) Adverse Reaction (Verified 04/12/25 14:35) Nausea nabumetone (From Relafen) Adverse Reaction (Verified 04/12/25 14:35) Nausea NSAIDS (Non-Steroidal Anti-Inflamma Adverse Reaction (Verified 04/12/25 14:35) Nausea sulfamethoxazole (From Bactrim) Adverse Reaction (Verified 04/12/25 14:35) Nausea terbinafine Adverse Reaction (Verified 04/12/25 14:35) Nausea trimethoprim (From Bactrim) Adverse Reaction (Verified 04/12/25 14:35) Nausea valdecoxib (From Bextra) Adverse Reaction (Verified 04/12/25 14:35) Other Procedures: None Type of Care/Length of Stay Estimated LOS: Convalescent Care Less Than 30 days Type of Care Needed: Skilled Rehab Potential: Fair Prognosis: Fair Additional Orders/Day of Discharge Day of Discharge: 04/17/25 Dietary and Speech Recommendations Dietitian Recommendations/Changes: Will continue Regular Diet. Will add 240mL Ensure Plus HP w/ breakfast tray. Discharge Plan Admission Admit Date/Time: 04/12/25 17:05 Primary Reason for Your Visit: UTI Attending Provider: Elyssa Enrique Primary Care Provider: Francisco Bahena Consulting Providers: Monique Agarwal; Elias Kaur; Elyssa Enrique Instructions Patient Instructions: ED Bladder Infection, Male (Adult) Discharge Orders/Prescriptions Prescriptions: New cefdinir 300 mg Capsule 300 mg PO Q12 Qty: 8 0RF Continued metronidazole 0.75 % cream 1 applic TOPICAL DAILY acetaminophen 500 MG tablet 1,000 mg PO PRN aspirin [Rika Low Dose Aspirin] 81 mg Tablet,Delayed Release (Dr/Ec) 81 mg PO QHS multivitamin Tablet 1 tab PO DAILY pantoprazole 40 mg Tablet,Delayed Release (Dr/Ec) 40 mg PO DAILY lisinopril 5 mg tablet 5 mg PO DAILY d-mannose Powder 1 ea PO DAILY Rx Instructions: 1/4 teaspoon on cereal each am. Dupixent Pen 300 mg/2 mL pen injector 300 mg subcut .COMPLEX Rx Instructions: 300 mg subcutaneously EVERY 8 WEEKS; donepezil 5 mg tablet 10 mg PO DAILY trazodone 100 mg tablet 100 mg PO QHS furosemide 20 mg tablet 20 mg PO DAILY memantine 10 mg tablet 10 mg PO BID methenamine hippurate 1 gram tablet 1 g PO BID sertraline 25 mg tablet 25 mg PO DINNER triamcinolone acetonide 1 applic topical DAILY PRN (Reason: itching) melatonin 5 mg tablet 5 mg PO QHS NewFlora 10 billion cell capsule 80 mmu cells PO DAILY guaifenesin [Mucinex] 600 mg tablet extended release 12hr 600 mg PO BID Trulance 3 mg tablet 3 mg PO DAILY Patient Comments: ON 12/13/24 BACLOFEN SUPPOSITORY 1 supp OTHER DAILY hydrochlorothiazide 12.5 mg tablet 12.5 mg PO DAILY polyethylene glycol 3350 [Miralax] 17 gram/dose powder 4 g PO DAILY sertraline [Zoloft] 25 mg tablet 25 mg PO LUNCH Rx Instructions: lunch ipratropium bromide 21 mcg (0.03 %) spray,non-aerosol INTRANASAL Patient Comments: [NO ORIGINAL SIG] Discontinued doxycycline hyclate 20 mg tablet 20 mg PO BID Patient Comments: Referrals / Follow Up: Francisco Bahena MD [Primary Care Provider] - Within 1 Week Disposition Disposition (needs filled in before D/C Order can be placed): Custodial Facility
--- NOTE | 2025-04-17 11:05 | PCM.DC.SUM ---
Providers Date of Admission: 04/12/25 Date of Discharge: 04/17/25 Primary Care Physician: Dr. Francisco Bahena MD Reason For Visit: GENERAL ILLNESS Diagnosis Discharge Diagnosis (1) Acute UTI: Status: Acute Code(s): N39.0 - Urinary tract infection, site not specified (2) Falls: Status: Acute Code(s): R29.6 - Repeated falls (3) Weakness: Status: Acute Code(s): R53.1 - Weakness Plan #Acute UTI On IV ceftriaxone. Urine cultures growing E. coli. Patient remains on IV ceftriaxone. Will switch to PO cefdinir to complete a 5 day course. #Hypertension: Continue blood pressure medications-hydrochlorothiazide and lisinopril #Debility and weakness: PT OT on board. Patient awaiting placement in SNF. #History of chronic back pain with spinal fusion in the past: Currently on pain meds. PT OT on board. Fall precautions. #GERD: On PPI #Depression with anxiety: On sertraline #Dementia: On memantine #DVT prophylaxis: SCDs Disposition: Currently awaiting placement. Medications at Discharge Home Medications acetaminophen 500 mg tablet 1,000 mg PO PRN Pain 04/03/17 metronidazole 0.75 % topical cream 1 applic topical DAILY skin health 07/16/19 aspirin 81 mg tablet,delayed release (Rika Low Dose Aspirin) 81 mg PO QHS heart health 01/28/21 multivitamin 1 tab PO DAILY vitamin 05/18/21 pantoprazole 40 mg tablet,delayed release 40 mg PO DAILY reflux 05/03/22 d-mannose 1 ea PO DAILY 09/24/23 dupilumab 300 mg/2 mL subcutaneous pen injector ([employer]) 300 mg subcut .COMPLEX skin health 09/24/23 lisinopril 5 mg tablet 5 mg PO DAILY blood pressure 09/24/23 BACLOFEN SUPPOSITORY 1 supp OTHER DAILY CONSITPATION 01/08/25 Lactobacillus acidophilus 10 billion cell capsule (NewFlora) 80 mmu cells PO DAILY 01/08/25 donepezil 5 mg tablet 10 mg PO DAILY 01/08/25 furosemide 20 mg tablet 20 mg PO DAILY 01/08/25 guaifenesin 600 mg tablet, extended release 12 hr (Mucinex) 600 mg PO BID 01/08/25 melatonin 5 mg tablet 5 mg PO QHS 01/08/25 memantine 10 mg tablet 10 mg PO BID 01/08/25 methenamine hippurate 1 gram tablet 1 g PO BID 01/08/25 plecanatide 3 mg tablet (Trulance) 3 mg PO DAILY 01/08/25 sertraline 25 mg tablet 25 mg PO DINNER 01/08/25 trazodone 100 mg tablet 100 mg PO QHS 01/08/25 triamcinolone acetonide 1 applic topical DAILY PRN itching 01/08/25 hydrochlorothiazide 12.5 mg tablet 12.5 mg PO DAILY 01/29/25 ipratropium bromide 21 mcg (0.03 %) nasal spray intranasal md ordered 04/12/25 polyethylene glycol 3350 17 gram/dose oral powder (Miralax) 4 g PO DAILY 04/12/25 sertraline 25 mg tablet (Zoloft) 25 mg PO LUNCH 04/12/25 cefdinir 300 mg capsule 300 mg PO Q12 #8 caps 04/17/25 Hospital Course Operations None Procedures None Summary of Care Provided Minutes Spent on Discharge: 45 Hospital Course: Patient is an 84-year-old male with past medical history as outlined who was admitted to the ED on 04/12/2025 with complaint of weakness and mechanical falls. He had gradually been getting weaker for several weeks and had had 3 falls in the last 2 months. He had had spinal fusion done about a month prior to admission and says he saw his spine surgeon and was told that he would need another surgery but was not sure he wanted to do it yet. He was concerned that he would needed long term placement so he was brought into the ED for placement. At admission urinalysis showed evidence of UTI. Chest x-ray showed no acute cardiopulmonary pathology. He was admitted to be managed for debility and weakness due to failure to thrive as well as UTI. He was started on IV ceftriaxone. PT OT worked with patient, but he was not very cooperative with them. His stay in SNF was denied by insurance. He and his family therefore opted for self pay in the SNF. He was discharged to half-way facility on 04/17/2025. Urine cultures grew E. coli which was pansensitive. He was therefore switched to p.o. cefdinir. He was discharged to half-way facility on 04/17/2025 was given a prescription for p.o. cefdinir for 4 days to complete a 5-day course. He is to follow-up with his primary care doctor within 1 to 2 weeks. Patient seen and examined prior to discharge. He had no active complaints. He had an uneventful night. Review of symptoms otherwise negative. Labs and vitals reviewed. Home medication reviewed and reconciled. Physical Exam Const alert, oriented x3, no apparent distress and well nourished General Appearance: cooperative, comfortable and well kempt Orientation / Consciousness: awake HEENT normocephalic, head/scalp atraumatic, hearing grossly normal bilaterally, moist oral mucous membranes, oropharynx normal and gingiva normal Mouth: oral and palatal mucosa normal Eyes PERRL, EOMs intact bilaterally and conjunctivae normal Neck no lymphadenopathy and supple Lymph Lymphatic: no lymphadenopathy noted and no lymphedema noted Resp normal respiratory effort, normal air movement and clear to auscultation bilaterally Cardio regular rate, regular rhythm, S1 normal heart sound, S2 normal heart sound and no murmurs GI normal to inspection, nondistended, normoactive bowel sounds, soft to palpation, non-tender and non-distended Extremity normal to inspection, full ROM, normal capillary refill, no clubbing, cyanosis or edema and no calf tenderness General Extremity: no tenderness to palpation of joints or extremities Skin no rashes or lesions noted General Skin Exam: no breakdown Neuro oriented x3, CN's II-XII intact bilaterally, moves all extremities, no focal motor deficits, no sensory deficits noted and deep tendon reflexes 2+ bilaterally Sensorium / Orientation: awake Motor Exam: strength 5/5 throughout and general weakness Psych thought process normal, cooperative and affect normal Appearance: appropriate Weight / BMI Weight Weight: 154 lb 1.65 oz Body Mass Index (BMI) 23.4 ABG / Lab / Microbiology Data 04/16/25 05:15 04/16/25 05:15 Microbiology: Microbiology 04/12/25 15:23 Urine, Clean Catch Urine Culture - Final Escherichia coli D/C Instructions Discharge Activity: Return to Normal Activity Weight Bearing Status: Weight bearing as tolerated Call your doctor if you observe: Fever of 101 or Higher, Shortness of breath, Dizziness, Swelling in the ankles and Chest pain DC O2, CPAP, BIPAP Needs Home O2 Discharge instructions: No DC home with Oxygen: No Meaningful Use Info Meaningful Use Meaningful Use Diagnoses (Choose all that apply): None applicable Discharge Plan Admission Admit Date/Time: 04/12/25 17:05 Primary Reason for Your Visit: UTI Attending Provider: Elyssa Enrique Primary Care Provider: Francisco Bahena Consulting Providers: Monique Agarwal; Elias Kaur; Elyssa Enrique Instructions Patient Instructions: ED Bladder Infection, Male (Adult) Discharge Orders/Prescriptions Prescriptions: New cefdinir 300 mg Capsule 300 mg PO Q12 Qty: 8 0RF Continued metronidazole 0.75 % cream 1 applic TOPICAL DAILY acetaminophen 500 MG tablet 1,000 mg PO PRN aspirin [Rika Low Dose Aspirin] 81 mg Tablet,Delayed Release (Dr/Ec) 81 mg PO QHS multivitamin Tablet 1 tab PO DAILY pantoprazole 40 mg Tablet,Delayed Release (Dr/Ec) 40 mg PO DAILY lisinopril 5 mg tablet 5 mg PO DAILY d-mannose Powder 1 ea PO DAILY Rx Instructions: 1/4 teaspoon on cereal each am. Dupixent Pen 300 mg/2 mL pen injector 300 mg subcut .COMPLEX Rx Instructions: 300 mg subcutaneously EVERY 8 WEEKS; donepezil 5 mg tablet 10 mg PO DAILY trazodone 100 mg tablet 100 mg PO QHS furosemide 20 mg tablet 20 mg PO DAILY memantine 10 mg tablet 10 mg PO BID methenamine hippurate 1 gram tablet 1 g PO BID sertraline 25 mg tablet 25 mg PO DINNER triamcinolone acetonide 1 applic topical DAILY PRN (Reason: itching) melatonin 5 mg tablet 5 mg PO QHS NewFlora 10 billion cell capsule 80 mmu cells PO DAILY guaifenesin [Mucinex] 600 mg tablet extended release 12hr 600 mg PO BID Trulance 3 mg tablet 3 mg PO DAILY Patient Comments: ON 12/13/24 BACLOFEN SUPPOSITORY 1 supp OTHER DAILY hydrochlorothiazide 12.5 mg tablet 12.5 mg PO DAILY polyethylene glycol 3350 [Miralax] 17 gram/dose powder 4 g PO DAILY sertraline [Zoloft] 25 mg tablet 25 mg PO LUNCH Rx Instructions: lunch ipratropium bromide 21 mcg (0.03 %) spray,non-aerosol INTRANASAL Patient Comments: [NO ORIGINAL SIG] Discontinued doxycycline hyclate 20 mg tablet 20 mg PO BID Patient Comments: Referrals / Follow Up: Francisco Bahena MD [Primary Care Provider] - Within 1 Week Disposition Disposition (needs filled in before D/C Order can be placed): [facility] Charges/Coding Visit Charges Inpatient E&M: 53645 Disch Hosp >30min
--- NOTE | 2025-04-17 11:32 | PHA.DC_ITS ---
Pharmacy [place] Med Reconciliation Pharmacy Service has performed discharge medication reconciliation for this patient. The patient's discharge medication list was reviewed for discrepancies and discrepancies were resolved. Medications at Discharge Home Medications acetaminophen 500 mg tablet 1,000 mg PO PRN Pain 04/03/17 metronidazole 0.75 % topical cream 1 applic topical DAILY skin health 07/16/19 aspirin 81 mg tablet,delayed release (Rika Low Dose Aspirin) 81 mg PO QHS heart health 01/28/21 multivitamin 1 tab PO DAILY vitamin 05/18/21 pantoprazole 40 mg tablet,delayed release 40 mg PO DAILY reflux 05/03/22 d-mannose 1 ea PO DAILY 09/24/23 dupilumab 300 mg/2 mL subcutaneous pen injector ([employer]) 300 mg subcut .COMPLEX skin health 09/24/23 lisinopril 5 mg tablet 5 mg PO DAILY blood pressure 09/24/23 BACLOFEN SUPPOSITORY 1 supp OTHER DAILY CONSITPATION 01/08/25 Lactobacillus acidophilus 10 billion cell capsule ([employer]Flor[employer]) 80 mmu cells PO DAILY 01/08/25 donepezil 5 mg tablet 10 mg PO DAILY 01/08/25 furosemide 20 mg tablet 20 mg PO DAILY 01/08/25 guaifenesin 600 mg tablet, extended release 12 hr (Mucinex) 600 mg PO BID 01/08/25 melatonin 5 mg tablet 5 mg PO QHS 01/08/25 memantine 10 mg tablet 10 mg PO BID 01/08/25 methenamine hippurate 1 gram tablet 1 g PO BID 01/08/25 plecanatide 3 mg tablet (Trulance) 3 mg PO DAILY 01/08/25 sertraline 25 mg tablet 25 mg PO DINNER 01/08/25 trazodone 100 mg tablet 100 mg PO QHS 01/08/25 triamcinolone acetonide 1 applic topical DAILY PRN itching 01/08/25 hydrochlorothiazide 12.5 mg tablet 12.5 mg PO DAILY 01/29/25 ipratropium bromide 21 mcg (0.03 %) nasal spray intranasal md ordered 04/12/25 polyethylene glycol 3350 17 gram/dose oral powder (Miralax) 4 g PO DAILY 04/12/25 sertraline 25 mg tablet (Zoloft) 25 mg PO LUNCH 04/12/25 cefdinir 300 mg capsule 300 mg PO Q12 #8 caps 04/17/25
[2025-04-17 12:29] VITALS: BP 131/68; PULSE 67; RESP 18; TEMP 37.2; O2SAT 98
--- NOTE | 2025-04-17 12:43 | NURSING ---
report called to jodie at [facility]-pt will transport
--- NOTE | 2025-04-17 14:20 | CASEMGMT ---
Social Work Physician updated and pt is ready for discharge today.? PASRR form completed in [facility] and sent along with discharge orders to [facility] via [facility].? Pt to transport.? SW met with pt and they are agreeable to discharge plan as stated above.? Bedside nurse notified of discharge. Disposition:[facility]?, skilled level of care private pay
== END 2025-04-17 13:59 | disposition skilled nursing facility (03) | DRG 690 ==
LOC: ED 16:27 → MS3 16:53
PROVIDERS: Internal Medicine; Admitting Provider Internal Medicine; Emergency Provider Emergency Medicine; PCP Family Medicine; Visit Provider Student in an Organized Health Care Education/Training Program
DX: N39.0 Urinary tract infection, site not specified (principal); F03.90 Unspecified dementia, unspecified severity, without behavioral disturbance, psychotic disturbance, mood disturbance, and anxiety; R62.7 Adult failure to thrive; I12.9 Hypertensive chronic kidney disease with stage 1 through stage 4 chronic kidney disease, or unspecified chronic kidney disease; F32.A Depression, unspecified; E78.5 Hyperlipidemia, unspecified; N18.2 Chronic kidney disease, stage 2 (mild); K21.9 Gastro-esophageal reflux disease without esophagitis; F41.9 Anxiety disorder, unspecified; B96.20 Unspecified Escherichia coli [E. coli] as the cause of diseases classified elsewhere; N40.1 Benign prostatic hyperplasia with lower urinary tract symptoms; N13.8 Other obstructive and reflux uropathy; G89.29 Other chronic pain; R29.6 Repeated falls; Z98.1 Arthrodesis status; Z68.23 Body mass index [BMI] 23.0-23.9, adult; Z79.899 Other long term (current) drug therapy; Z87.891 Personal history of nicotine dependence; Z79.82 Long term (current) use of aspirin
CPT/HCPCS: 36415; 71045; 80048; 81001; 82607; 83735; 84100; 84443; 85025; 87077; 87086; 87088; 87186; 93005; 96361; 96365; 96366; 96372; 97162; 97165; 97530; 97535; 97802; 99221; 99285; A4216; G0378

== ENCOUNTER → 2025-04-18 | Outpatient (REF) | payer MEDICARE, SELFPAY ==
--- OUTSIDE RECORDS SUMMARY | 2025-04-18 03:38 | XMS RPT_ITS | CCD ---
Author Organization [facility] CliniSymt Care Team Providers Care It Systems Analyst Consultant Name Role Phone Francisco Bahena MD Primary Care Provider Dr. Francisco Bahena Primary Care Provider Dr. Gustavo Cochran Attending Provider [phone] Mattie Esparza Referring Provider Francisco Bahena MD Primary Care Provider Franicsco Bahena MD Primary Care Provider Alok Marroquin Unavailable Sofia Wilde MD Unavailable Sade [facility] Dorothy Unavailable Francisco Bahena MD Primary Care Provider Alok Marroquin Unavailable Sofia Wilde MD Unavailable Dr. Francisco Bahena Primary Care Provider Dr. Gustavo Cochran Attending Provider Dr. Mattie Esparza Referring Provider FRANCISCO BAHENA Primary Care Unavailable SOFIA WILDE Referring Unavailable SOFIA WILDE Attending Unavailable ALOK MARROQUIN Referring Unavailable FRANCISCO BAHENA Primary Care Unavailable WUDEL, SOFIA Admitting Unavailable SFOIA WILDE Attending Unavailable SOFIA WILDE Referring Unavailable FRANCISCO BAHENA Primary Care Unavailable ZAHIDA VILLAFANA Consulting Unavailable SOFIA WILDE Admitting Unavailable SOFIA WILDE Attending Unavailable FRANCISCO BAHENA Primary Care Unavailable NUKTASANTY Admitting Unavailable NUKTA, EMAD M Attending Unavailable JOSEF, FRANCISCO A Primary Care Unavailable WUDEL, SOFIA Referring Unavailable JOSEF, FRANCISCO A Primary Care Unavailable JOSEF, FRANCISCO A Primary Care Unavailable WUDEL, SOFIA Referring Unavailable JOSEF, FRANCISCO A Primary Care Unavailable WUDEL, SOFIA Referring Unavailable JOSEF, FRANCISCO A Primary Care Unavailable WUDEL, SOFIA Referring Unavailable JOSEF, FRANCISCO A Primary Care Unavailable WUDEL, SOFIA Referring Unavailable JOSEF, FRANCISCO A Primary Care Unavailable WUDEL, SOFIA Referring Unavailable Jamariah, Paulent F Unavailable Paul Marroquin MDent F Unavailable Dr. Francisco Bahena Primary Care Provider Dr. Aly Li Emergency Provider Dr. Cesar Orona Admit Provider [phone] Cesar Orona Other Provider [phone] Elyssa Enrique Attending Provider Dr. Elyssa Enrique Other Provider Dr. Christoph Kilgore Attending Provider Dr. Christoph Kilgore Other Provider Alok Marroquin MD Unavailable Francisco Bahena MD Primary Care Provider Francisco Bahena MD Primary Care Provider Alok Marroquin MD Unavailable Rowan DAWN.RHODA, Trinidad Unavailable Cherelle Benavides PA-C Unavailable Alok Marroquin MD Unavailable Francisco Bahena MD Primary Care Provider Dr. Francisco Bahena MD Primary Care Provider Dr. Hector Baxter MD Emergency Provider Katya FAIRBANKS, Dr. Keyana Tapia Admit Provider [phone] Keyana Aldana MD Attending Provider Katya FAIRBANKS, Dr. Keyana Tapia Other Provider Magui FAIRBANKS, Dr. Christoph Gipson Attending Provider Magui FAIRBANKS, Dr. Christoph Gipson Other Provider Negra MCLAUGHLIN, Nik Unavailable Pool Lopez MD Emergency Provider DANIELA NOEL Referring Unavailable JOSEF, FRANCISCO A Primary Care Unavailable Knnathan PRODUCTION ENGINEER TRACK.Trinidad DUONG Unavailable Kennedy FREDERICK, Cherelle Unavailable Kennedy FREDERICK, Cherelle Unavailable HONEY BAEZA Referring Unavailable JOSEF, FRANCISCO A Primary Care Unavailable Pool Lopez MD Attending Provider Dr. Marlo Echevarria DO Emergency Provider Stefano FAIRBANKS, Dr. Amaya Admit Provider Stefano FAIRBANKS, Dr. Amaya Attending Provider JOSEF, FRANCISCO A Referring Unavailable JOSEF, FRANCISCO A Primary Care Unavailable YUN COLES Attending Unavailable JOSEF, FRANCISCO A Primary Care Unavailable WILLIAMSON, RIAZ Attending Unavailable WILLIAMSON, RIAZ Referring Unavailable JOSEF, FRANCISCO A Primary Care Unavailable JOSEF, FRANCISCO A Primary Care Unavailable JOSEF, FRANCISCO A Referring Unavailable JOSEF, FRANCISCO A Primary Care Unavailable WILLIAMSON, RIAZ Referring Unavailable JOSEF, FRANCISCO A Primary Care Unavailable WILLIAMSON, RIAZ Referring Unavailable JOSEF, FRANCISCO A Primary Care Unavailable WILLIAMSON, RIAZ Referring Unavailable JOSEF, FRANCISCO A Primary Care Unavailable WILLIAMSON, RIAZ Referring Unavailable JOSEF, FRANCISCO A Primary Care Unavailable TRINIDAD ROQUE Attending Unavailable JOSEF, FRANCISCO A Primary Care Unavailable JOSEF, FRANCISCO A Referring Unavailable JOSEF, FRANCISCO A Primary Care Unavailable JOSEF, FRANCISCO A Attending Unavailable JOSEF, FRANCISCO A Primary Care Unavailable JOSEF, FRANCISCO A Referring Unavailable JOSEF, FRANCISCO A Primary Care Unavailable WILLIAMSON, RIAZ Attending Unavailable SELF Referring Unavailable JOSEF, FRANCISCO A Primary Care Unavailable CHERELLE BENAVIDES Attending Unavailable JOSEF, FRANCISCO A Primary Care Unavailable YUN COLES Attending Unavailable JOSEF, FRANCISCO A Primary Care Unavailable GERTRUDIS CARRILLO Attending Unavailable SELF Referring Unavailable JOSEF, FRANCISCO A Primary Care Unavailable Vero'LAUREL ANSARI Attending Unavailable JOSEF, FRANCISCO A Referring Unavailable JOSEF, FRANCISCO A Primary Care Unavailable Vero'LAUREL ASNARI Attending Unavailable JOSEF, FRANCISCO A Referring Unavailable JOSEF, FRANCISCO A Primary Care Unavailable O'MAXIME, ANGELA Referring Unavailable JOSEF, FRANCISCO A Primary Care Unavailable O'MAXIME, ANGELA Referring Unavailable JOSEF, FRANCISCO A Primary Care Unavailable JOSEF, FRANCISCO A Attending Unavailable JOSEF, FRANCISCO A Primary Care Unavailable DANIELA NOEL Attending Unavailable SELF Referring Unavailable JOSEF, FRANCISCO A Primary Care Unavailable JOSEF, FRANCISCO A Referring Unavailable JOSEF, FRANCISCO A Primary Care Unavailable JOSEF, FRANCISCO A Referring Unavailable JOSEF, FRANCISCO A Primary Care Unavailable JOSEF, FRANCISCO A Referring Unavailable JOSEF, FRANCISCO A Primary Care Unavailable JOSEF, FRANCISCO A Primary Care Unavailable WILLIAMSON, RIAZ Referring Unavailable WILLIAMSON, RIAZ Referring Unavailable JOSEF, FRANCISCO A Primary Care Unavailable JOSEF, FRANCISCO A Attending Unavailable JOSEF, FRANCISCO A Primary Care Unavailable JOSEF, FRANCISCO A Referring Unavailable JOSEF, FRANCISCO A Primary Care Unavailable TRINIDAD ROQUE Referring Unavailable JOSEF, FRANCISCO A Primary Care Unavailable KNTRINIDAD SCHNEIDER Referring Unavailable JOSEF, FRANCISCO A Primary Care Unavailable KNOBLE TRINIDAD Referring Unavailable JOSEF, FRANCISCO A Primary Care Unavailable JOSEF, FRANCISCO A Referring Unavailable JOSEF, FRANCISCO A Primary Care Unavailable JOSEF, FRANCISCO A Referring Unavailable JOSEF, FRANCISCO A Primary Care Unavailable TRINIDAD ROQUE Attending Unavailable JOSEF, FRANCISCO A Primary Care Unavailable BELEM NUÑEZ Attending Unavailable JOSEF, FRANCISCO A Primary Care Unavailable JOSEF, FRANCISCO A Referring Unavailable JOSEF, FRANCISCO A Primary Care Unavailable JOSEF, FRANCISCO A Referring Unavailable JOSEF, FRANCISCO A Primary Care Unavailable WILLIAMSON, RIAZ Referring Unavailable JOSEF, FRANCISCO A Primary Care Unavailable Aris BAEZA Attending Unavailable JOSEF, FRANCISCO A Primary Care Unavailable SARA HOOPER Attending Unavailable QUINTEN YU JR Referring Unavailable JOSEF, FRANCISCO A Primary Care Unavailable QUINTEN YU JR Attending Unavailable JOSEF, FRANCISCO A Primary Care Unavailable JOSEF, FRANCISCO A Attending Unavailable JOSEF, FRANCISCO A Primary Care Unavailable JOSEF, FRANCISCO A Referring Unavailable JOSEF, FRANCISCO A Primary Care Unavailable DANIELA NOEL Attending Unavailable SELF Referring Unavailable JOSEF, FRANCISCO A Primary Care Unavailable YUN COLES Referring Unavailable JOSEF, FRANCISCO A Primary Care Unavailable Vero'MAXIMEANGELA MANLEY Attending Unavailable O'MAXIME, ANGELA Referring Unavailable JOSEF, FRANCISCO A Primary Care Unavailable JOSEF, FRANCISCO A Referring Unavailable JOSEF, FRANCISCO A Primary Care Unavailable JOSEF, FRANCISCO A Attending Unavailable JOSEF, FRANCISCO A Primary Care Unavailable Stefano FAIRBANKS, Dr. Amaya Other Provider [phone] Iva FAIRBANKS, Dr. Elyssa Norwood Attending Provider Iva FAIRBANKS, Dr. Elyssa Norwood Other Provider Vincent FAIRBANKS, Dr. Griffin Other Provider Unavailable Vincent FAIRBANKS, Dr. Griffin Attending Provider Unavaila ble Josef, Francisco Primary Care Unavailable Knoble, Trinidad Referring Unavailable Trinidad Roque Attending Unavailable Josef, Francisco Referring Unavailable Josef, Francisco Attending Unavailable Josef, Francisco Primary Care Unavailable White, Keyana L Admitting Unavailable Josef, Francisco Primary Care Unavailable Christoph Kilgore Attending Unavailable White, Keyana L Consulting Unavailable Josef, Francisco Primary Care Unavailable White, Keyana L Attending Unavailable White, Keyana L Consulting Unavailable White, Keyana L Admitting Unavailable Christine Kilgores F Attending Unavailable Raj Kilgoreolas F Consulting Unavailable Koram, Elyssa Enma Attending Unavailable Josef, Francisco Primary Care Unavailable Stefano, Monique Admitting Unavailable Monique Agarwal Consulting Unavailable Elias Kaur Consulting Unavailable Koram, Elyssa Enma Consulting Unavailable Josef, Francisco Primary Care Unavailable Pool Lopez Attending Unavailable Koram, Elyssa Enma Attending Unavailable Josef, Francisco Primary Care Unavailable Agarwal, Monique Consulting Unavailable Stefano, Monique Admitting Unavailable Elias Kaur Consulting Unavailable Rishiam, Elyssa Enma Consulting Unavailable Monique Agarwal Attending Unavailable Elias Kaur Attending Unavailable Josef, Francisco Referring Unavailable Josef, Francisco Consulting Unavailable Josef, Francisco Primary Care Unavailable Eduardo Herbert Attending Unavailable Allergies Allergy Classification Reported Allergen(s) Allergy Type Date of Onset Reaction(s) Facility Adrenergic Antagonists (3 sources) Doxazosin Drug Allergy 06-02-20 05 Unknown [facility] Alendronate (3 sources) Alendronate Drug Allergy 01-04-20 20 Vomiting [facility] Anti-Epileptic Agents (3 sources) gabapentin Drug Allergy 01-29-20 Mental Status Change [facility] Azelate (3 sources) Azelate Drug Allergy 09-28-19 18 Rash [facility] Azole Antifungals (3 sources) Ketoconazole Drug Allergy 09-06-20 08 Unknown [facility] Contrast Media (3 sources) Contrast media Substance Allergy 03-24-20 09 Hives [facility] miSOPROStol (3 sources) miSOPROStol Drug Allergy 06-02-20 05 Unknown [facility] Nitrofurantoin (3 sources) Nitrofurantoin Drug Allergy 05-15-20 21 Other: See Comments [facility] NSAIDs (6 sources) meloxicam Drug Allergy 06-02-20 05 Unknown [facility] Quinolones (antibiotic) (6 sources) Ciprofloxacin Drug Allergy 12-01-19 03 Unknown, Other: See Comments [facility] Sulfamethoxazole / Trimethoprim (3 sources) Sulfamethoxazole / Trimethoprim Drug Allergy 06-02-20 05 Unknown [facility] Work Phone: terbinafine (3 sources) terbinafine Drug Allergy 10-02-19 10 GI Upset [facility] valdecoxib (3 sources) valdecoxib Drug Allergy 06-02-20 05 Unknown [facility] (20 sources) Alendronate; Translations: [ALENDRONATE SODIUM] Drug Allergy 01-04-20 20 Vomiting [facility] Work Phone: (20 sources) Azelate; Translations: [AZELAIC ACID] Drug Allergy 09-28-19 18 Rash [facility] Work Phone: (20 sources) Cephalexin; Translations: [CEPHALEXIN] Drug Allergy 08-13-20 13 [facility] Work Phone: (20 sources) Ciprofloxacin; Translations: [CIPROFLOXACIN] Drug Allergy 12-01-19 03 Unknown [facility] Work Phone: [phone] (20 sources) Contrast media; Translations: [CONTRAST DYE] Drug Allergy 03-24-20 09 Hives [facility] Work Phone: (20 sources) Doxazosin; Translations: [DOXAZOSIN MESYLATE] Drug Allergy 06-02-20 05 Unknown [facility] Work Phone: (20 sources) gabapentin; Translations: [GABAPENTIN] Drug Allergy 01-29-20 21 Mental Status Change [facility] Work Phone: (20 sources) Ketoconazole; Translations: [KETOCONAZOLE] Drug Allergy 09-06-20 08 Unknown [facility] Work Phone: (20 sources) levoFLOXacin; Translations: [LEVOFLOXACIN] Drug Allergy 01-26-20 12 Other: See Comments [facility] Work Phone: [phone] (20 sources) meloxicam; Translations: [MELOXICAM] Drug Allergy 06-02-20 05 Unknown [facility] Work Phone: [phone] (20 sources) miSOPROStol; Translations: [MISOPROSTOL] Drug Allergy 06-02-20 05 Unknown [facility] Work Phone: (20 sources) nabumetone; Translations: [NABUMETONE] Drug Allergy 06-02-20 05 Unknown [facility] Work Phone: [phone] (20 sources) Nitrofurantoin; Translations: [NITROFURANTOIN] Drug Allergy 05-15-20 21 Other: See Comments [facility] Work Phone: [phone] (20 sources) Non-steroidal anti-inflammatory agent; Translations: [NSAIDS (NON-STEROIDAL ANTI-INFLAMMATORY DRUG)] Propensity to adverse reactions to drug 12-01-19 03 Unknown [facility] Work Phone: (20 sources) Sulfamethoxazole / Trimethoprim; Translations: [SULFAMETHOXAZOLE-T RIMETHOPRIM] Drug Allergy 06-02-20 05 Unknown [facility] Work Phone: (20 sources) terbinafine; Translations: [TERBINAFINE] Drug Allergy 10-02-19 10 GI Upset [facility] Work Phone: [phone] (20 sources) valdecoxib; Translations: [VALDECOXIB] Drug Allergy 06-02-20 05 Unknown [facility] Work Phone: (20 sources) Non-steroidal anti-inflammatory agent Propensity to adverse reactions to drug 12-01-19 03 Unknown [facility] Work Phone: (4 sources) Doxazosin Drug Allergy 05-18-20 21 Nausea [facility] (13 sources) Sulfamethoxazole Drug Allergy 05-18-20 21 Nausea [facility] (13 sources) Trimethoprim Drug Allergy 05-18-20 21 Nausea [facility] (14 sources) Iodinated Contrast Media; Translations: [Iodinated Contrast Media] Allergy to substance 05-18-20 Hives [facility] (14 sources) NSAIDS (Non-Steroidal Anti-Inflamma; Translations: [NSAIDS (Non-Steroidal Anti-Inflamma] Propensity to adverse reactions 05-18-20 [facility] (1 source) Azelate Drug Allergy 04-12-20 25 [facility] (1 source) levoFLOXacin Drug Allergy 04-12-20 25 [facility] (1 source) meloxicam Drug Allergy 04-12-20 25 [facility] (1 source) miSOPROStol Drug Allergy 04-12-20 25 [facility] (1 source) nabumetone Drug Allergy 04-12-20 25 [facility] (1 source) Sulfamethoxazole Drug Allergy 04-12-20 25 [facility] (1 source) terbinafine Drug Allergy 04-12-20 25 [facility] (1 source) Trimethoprim Drug Allergy 04-12-20 25 [facility] (1 source) valdecoxib Drug Allergy 04-12-20 25 [facility] Medications Current Medications Medication Drug Class(es) Dates Sig (Normalized) Sig (Original) acetaminophen 500 mg oral tablet (20 sources) Start: 04-03-2017 Acetaminophen 500 MG tablet Active 1000 mg PO NEEDED April 03, 2017 12:00am Pain Start: 04-03-2017 Acetaminophen Active 500 MG PO NEEDED April 02, 2017 11:00pm Comment on above: Take 2 tablets by [facility] every 8 hours as needed for Pain or Fever. amoxicillin 500 mg oral capsule (1 source) Penicillin-class Antibacterial Start: 1 take 500 mg by mouth once daily Amoxicillin Active 500 MG PO DAILY January 28, 2021 12:00am for 13 days amoxicillin 875 mg / clavulanate 125 mg oral tablet (2 sources) Penicillin-class Antibacterial Start: 3 End: 3 take 1 tablet by mouth twice daily amoxicillin-clavula yasir acid (AUGMENTIN) 875-125 mg per tablet Take 1 tablet by mouth twice daily for 7 days. 14 tablet 0 10/14/2022 10/21/2022 Active Comment on above: Take 1 tablet by linda th twice daily for 7 days. aspirin 81 mg delayed release oral tablet (20 sources) Platelet Aggregation Inhibitor, Nonsteroidal Anti-inflammatory Drug Start: 1 Aspirin (Rika Low Dose Aspirin) 81 mg Tablet,Delayed Release (Dr/Ec) Active 81 mg PO AT BEDTIME January 28, 2021 12:00am [employer] Start: 12-30-2020 take 1 tablet by linda th once daily aspirin 81 mg chewable tablet Take 1 tablet by mouth once daily. 12/30/2020 Active Comment on above: Take 1 tablet by linda th once daily. BACLOFEN SUPPOSITORY (6 sources) Start: 01-08-2025 BACLOFEN SUPPOSITORY Active 1 NMA OTHER DAILY January 08, 2025 12:00am CONSITPATION Start: 01-08-2025 BACLOFEN SUPPO SITORY Active 1 NMA OTHER DAILY January 08, 2025 12:00am baclofen suppository 10 mg ( CPD) (20 sources) Start: 03-13-2025 End: 04-12-2025 baclofen suppository 10 mg (CPD) 1 suppository by RECTAL route once daily. Unwrap and insert as directed. 30 suppository 03/13/2025 04/12/2025 Active Start: 03-13-2025 End: 03-13-2025 baclofen suppository 10 mg ( CPD) 1 suppository by RECTAL route once daily. Unwrap and insert as directed. 30 suppository 03/13/2025 03/13/2025 Discontinued Start: 02-01-2025 End: 03-04-2025 baclofen suppository 10 mg ( CPD) 1 suppository by RECTAL route once daily. Unwrap and insert as directed. 30 suppository 02/01/2025 03/04/2025 Discontinued Start: 02-01-2025 End: 03-03-2025 baclofen suppository 10 mg ( CPD) 1 suppository by RECTAL route once daily. Unwrap and insert as directed. 30 suppository 02/01/2025 03/03/2025 Start: 02-01-2025 End: 03-03-2025 baclofen suppository 10 mg ( CPD) 1 suppository by RECTAL route once daily. Unwrap and insert as directed. 30 suppository 02/01/2025 03/03/2025 Active Start: 12-19-2024 End: 01-18-2025 baclofen suppository 10 mg ( CPD) 1 Suppository by RECTAL route once daily. Unwrap and insert as directed. 30 Suppository 12/19/2024 01/18/2025 Active Start: 12-19-2024 End: 12-19-2024 baclofen suppository 10 mg ( CPD) Indications: Pelvic floor dysfunction 1 Suppository by RECTAL route once daily. Unwrap and insert as directed. 30 Suppository 12/19/2024 12/19/2024 Discontinued busPIRone hydrochloride 5 mg oral tablet (1 source) Start: 05-18-2021 take 5 mg by mouth twice daily Buspirone Active 5 MG PO TWICE A DAY May 18, 2021 12:00am cefdinir 300 mg oral capsule (8 sources) Cephalosporin Antibacterial Start: 04-17-2025 take 1 capsule by mouth every twelve hours Cefdinir 300 mg Capsule Active 300 mg PO EVERY 12 HOURS 8 0 April 17, 2025 12:00am Start: 09-28-2023 End: 01-08-2025 take 1 capsule by mouth twice daily Cefdinir 300 mg capsule Discontinued 300 mg PO TWICE A DAY 24 12 0 September 28, 2023 1:00am January 08, 2025 11:28am D-Mannose (2 sources) Start: 09-24-2023 take 0.25 [tsp_us] b y mouth once daily in the morning D-Mannose Active 1 EACH PO DAILY September 24, 2023 12:00am 1/4 teaspoon on cereal each am. d-mannose powd (20 sources) take 0.5 [tsp_us] by mouth once daily d-mannose powd Take 1/2 teaspoon by mouth once daily. Active d-mannose powd T benny by mouth once daily. Active d-mannose powd T benny by mouth once daily. 0 Active d-mannose powd T benny by mouth. 0 Active Comment on above: Take by mouth. Take by mouth once d aily. D-Mannose powder (6 sources) Start: 09-24-2023 D-Mannose powder Active 1 NMA PO DAILY September 24, 2023 1:00am 1/4 teaspoon on cereal each am. donepezil hydrochloride 5 mg oral tablet (20 sources) Start: 10-30-2024 take 2 tablets by mouth once daily Donepezil 5 mg tablet Active 10 mg PO DAILY January 08, 2025 12:00am Start: 02-21-2024 End: 10-29-2024 take 1 tablet by mouth once daily at bedtime donepezil (ARICEPT) 10 mg tablet Take 1 tablet by mouth daily at bedtime. 90 tablet 1 10/23/2024 10/29/2024 Discontinued Start: 02-01-2024 End: 02-19-2024 take 2 tablets by mouth once daily at bedtime donepezil (ARICEPT) 5 mg tablet Take 2 tablets by mouth daily at bedtime. 90 tablet 1 02/01/2024 02/19/2024 Discontinued Start: 12-02-2023 End: 02-01-2024 take 1 tablet by mouth once daily at bedtime donepezil (ARICEPT) 5 mg tablet Take 1 tablet by mouth daily at bedtime. 30 tablet 5 12/02/2023 02/01/2024 Discontinued Comment on above: Take 1 tablet by linda th daily at bedtime. doxycycline hyclate 20 mg oral tablet (20 sources) Tetracycline-class Drug Start: 03-13-2019 take 100 mg by mouth once Doxycycline Hyclate Active 100 MG PO every Tuesday, Tuesday, and Wednesday March 13, 2019 1:21pm takes at noon on Start: 04-03-2017 End: 04-17-2025 take 1 tablet by mouth twice daily doxycycline 20 mg tablet Take 20 mg by mouth twice daily. 10/24/2021 Active Comment on above: Take 20 mg by mouth twice daily. 2 ml dupilumab 150 mg/ml prefilled syringe (20 sources) Interleukin-4 Receptor alpha Antagonist Start: 02-23-2024 End: 06-25-2024 dupilumab 300 mg/2 mL subcutaneous syringe (DUPIXENT) Inject 2 mL subcutaneously every 4 weeks. Per Derm: Dr. Mariee 06/25/2024 Active Start: 09-24-2023 Dupilumab (Dup ixent Pen) 300 mg/2 mL pen injector Active 300 mg SC .COMPLEX September 24, 2023 1:00am [facility] 300 mg subcutaneously EVERY 8 WEEKS; Start: 09-24-2023 Dupilumab (Dup ixent Pen) 300 mg/2 mL pen injector Active 300 mg SC .COMPLEX September 24, 2023 1:00am [facility] 300 mg subcutaneously EVERY 6 WEEKS; Start: 09-24-2023 Dupilumab (Dup ixent Pen) 300 mg/2 mL pen injector Active 300 MG SC .every two weeks September 24, 2023 12:00am Comment on above: Inject 300 mg subcut aneously every 2 weeks. enteric contrast (will be provided with radiology test) (6 sources) Start: 06-25-2024 End: 06-26-2024 enteric contrast (will be provided with radiology test) Indications: Left upper quadrant abdominal pain For CT ABD/PEL W IVCON Routine order Administer, As Directed One Time Only, via Oral, Rectal, both Oral and Rectal, Enteric Tube, Stoma or Indwelling Catheter, Enteric Contrast as designated per enteric contrast guidelines 1 Each 06/25/2024 06/26/2024 Active Start: 08-25-2023 End: 08-25-2023 take 1 dose by mouth once, then take 1 dose by mouth once enteric contrast (will be provided with radiology test) Indications: Left lower quadrant abdominal pain Take 1 Each by mouth one time only for [address] ABD/PEL WO Routine order Administer, As Directed One Time Only, via Oral, Rectal, both Oral and Rectal, Enteric Tube, Stoma or Indwelling Catheter, Enteric Contrast as designated per enteric contrast guidelines 1 Each 0 08/25/2023 08/25/2023 Discontinued Start: 08-25-2023 End: 08-25-2023 take 1 dose by mouth once, then take 1 dose by mouth once enteric contrast (will be provided with radiology test) Indications: Left lower quadrant abdominal pain Take 1 Each by mouth one time only for [address] ABD/PEL WO Routine order Administer, As Directed One Time Only, via Oral, Rectal, both Oral and Rectal, Enteric Tube, Stoma or Indwelling Catheter, Enteric Contrast as designated per enteric contrast guidelines 1 Each 0 08/25/2023 08/25/2023 Start: 01-01-2022 End: 01-02-2022 enteric contrast (will be pr ovided with radiology test) Indications: Lower abdominal pain , Left lower quadrant abdominal pain For CT ABD/PEL W IVCON Routine order Administer, As Directed One Time Only, via Oral, Rectal, both Oral and Rectal, Enteric Tube, Stoma or Indwelling Catheter, Enteric Contrast as designated per enteric contrast guidelines 1 Each 01/01/2022 01/02/2022 Comment on above: Take 1 Each by mouth one time only for [address] ABD/PEL WO Routine order Administer, As Directed One Time Only, via Oral, Rectal, both Oral and Rectal, Enteric Tube, Stoma or Indwelling Catheter, Enteric Contrast as designated per enteric contrast guidelines 12 hr guaiFENesin 600 mg extended release oral tablet (20 sources) Start: 2024 take 1 tablet by mouth twice daily, then take 1 tablet by mouth every twelve hours Guaifenesin (Mucinex) 600 mg tablet extended release 12hr Active 600 mg PO TWICE A DAY January 08, 2025 12:00am hydroCHLOROthiazide 12.5 mg oral tablet (20 sources) Thiazide Diuretic Start: 2021 End: 2024 take 1 tablet by mouth once daily Hydrochlorothiazide 12.5 mg tablet Active 12.5 mg PO DAILY January 29, 2025 12:00am Start: 04-03-2017 End: 04-12-2025 take 1 capsule by mouth once daily Hydrochlorothiazide 12.5 MG capsule Discontinued 12.5 mg PO DAILY April 03, 2017 12:00am April 12, 2025 2:48pm diuretic Comment on above: Take 1 tablet by linda th once daily. ipratropium bromide 0.021 mg/actuat metered dose nasal spray (20 sources) Anticholinergic Start: 04-12-2025 Ipratropium [place] 21 mcg (0.03 %) spray,non-aerosol Active INTRANASAL April 12, 2025 12:00am md ordered Start: 02-22-2025 Ipratropium Br omide (ATROVENT) 21 mcg (0.03 %) nasal spray Use 1-2 sprays in the nose three times a day. 30 mL 11 02/22/2025 Active End: 12-31-2024 ipratropium bromide (ATROVEN T) 42 mcg (0.06 %) nasal spray Use 2 Sprays in the nose three times a day. 12/31/2024 Discontinued (Discontinued by Patient) iv contrast (will be provide d with radiology test) (4 sources) Start: 06-25-2024 End: 06-26-2024 iv contrast (will be provide d with radiology test) Indications: Left upper quadrant abdominal pain CT ABD/PEL -Inject, intravenously, once for 1 dose.No IV access, insert saline lock prior to the beginning of sedation, infusion, injection of imaging exam. Discontinue saline lock post exam. If Pt. has a central line or IVAD, may access for administration according to line specific nursing protocol. Once exam is complete flush line and de-access according to line specific nursing protocol in the CT contrast administration guidelines link. 1 Each 06/25/2024 06/26/2024 Active Start: 01-01-2022 End: 01-02-2022 iv contrast (will be provide d with radiology test) Indications: Lower abdominal pain , Left lower quadrant abdominal pain CT ABD/PEL -Inject, intravenously, once for 1 dose.No IV access, insert saline lock prior to the beginning of sedation, infusion, injection of imaging exam. Discontinue saline lock post exam. If Pt. has a central line or IVAD, may access for administration according to line specific nursing protocol. Once exam is complete flush line and de-access according to line specific nursing protocol in the CT contrast administration guidelines link. 1 Each 01/01/2022 01/02/2022 lactobacillus acidophilus [id number] unt oral capsule (20 sources) Start: 01-08-2025 take 10 capsules by mouth once daily Lactobacillus Acidophilus ([place]) 10 billion cell capsule Active 80 NMA PO DAILY January 08, 2025 12:00am Start: 01-28-2021 End: 09-24-2023 take 1 capsule by mouth once daily Lactobacillus Acidophilus Capsule Discontinued 10 mg PO DAILY January 28, 2021 12:00am September 25, 2023 12:06am take 1 capsule by mo uth once daily Lactobacillus acidophilus (PROBIOTIC ACIDOPHILUS ORAL) Take 1 capsule by mouth once daily. Active take 2 capsules by m outh once daily Lactobacillus acidophilus (PROBIOTIC ACIDOPHILUS ORAL) Take 2 capsules by mouth once daily. Active take 2 capsules by m outh once daily Lactobacillus acidophilus (PROBIOTIC ACIDOPHILUS ORAL) Take 2 capsules by mouth once daily. 0 Active lisinopril 5 mg oral tablet (20 sources) Angiotensin Converting Enzyme Inhibitor Start: 09-24-2023 End: 10-09-2024 take 1 tablet by mouth once daily Lisinopril 5 mg tablet Active 5 mg PO DAILY September 24, 2023 1:00am blood pressure Start: 04-20-2023 take 1 tablet by linda th once daily lisinopril (ZESTRIL) 5 mg tablet Take 1 tablet by mouth once daily. 90 tablet 1 04/20/2023 Active Start: 01-17-2023 take 1 tablet by linda th once daily lisinopril (ZESTRIL) 5 mg tablet Take 1 tablet by mouth once daily. 90 tablet 1 01/17/2023 Active Start: 01-28-2021 take 1 tablet by linda th once daily Lisinopril (Zestril) 5 mg tablet Active 5 MG PO DAILY January 28, 2021 12:00am Comment on above: Take 1 tablet by linda th once daily. MEDICAL SUPPLY (20 sources) Start: 02-27-2021 MEDICAL SUPPLY Indications: Weakness of left lower extremity KAFO for right lower extremity. 1 Device 1 02/27/2021 Suspended Start: 02-27-2021 MEDICAL SUPPLY Indications: Weakness of left lower extremity KAFO for right lower extremity. 1 Device 1 02/27/2021 Active Comment on above: KAFO for right lower extremity. melatonin 5 mg oral tablet (20 sources) Start: 01-08-2025 take 1 tablet by mouth at bedtime Melatonin 5 mg tablet Active 5 mg PO AT BEDTIME January 08, 2025 12:00am Start: 01-28-2021 End: 09-24-2023 take 5 mg by mouth at bedtime Melatonin 3 mg Tablet Di scontinued 5 mg PO AT BEDTIME January 28, 2021 12:00am September 25, 2023 12:06am Start: 01-28-2021 End: 09-24-2023 take 5 mg by mouth at bedtime Melatonin Discontinued 5 MG PO AT BEDTIME January 27, 2021 11:00pm September 24, 2023 11:06pm Start: 12-29-2020 End: 10-04-2022 take 1 tablet by mouth once daily at bedtime melatonin 3 mg tablet Take 1 tablet by mouth daily at bedtime. 12/29/2020 10/04/2022 Discontinued Comment on above: Take 1 tablet by linda th daily at bedtime. memantine hydrochloride 10 mg oral tablet (20 sources) C-orvvrj-Y-aspartate Receptor Antagonist Start: End: take 1 tablet by mouth twice daily Memantine 10 mg tablet Active 10 mg PO TWICE A DAY January 08, 2025 12:00am Start: 09-21-2024 End: 12-20-2024 memantine (NAMENDA) 10 mg ta blet Take 1 tab twice daily (after completing the 5mg titration Rx). 180 tablet 1 09/21/2024 12/20/2024 Active Start: 09-21-2024 End: 12-31-2024 memantine (NAMENDA) 5 mg tab let Take 1 tablet daily for 1 week, then increase to 1 tablet twice daily for 1 week, then increase to 1 tablet in the AM and 2 tablets in the PM for 1 week. When you complete the 5mg tablet titration then transition to the 10mg tablets (separate Rx). 42 tablet 09/21/2024 12/31/2024 Discontinued methenamine hippurate 1000 m g oral tablet (20 sources) Start: 01-06-2024 End: 03-11-2026 Methenamine Hippurate 1 gram tablet Active 1 g PO TWICE A DAY January 08, 2025 12:00am Start: 01-17-2023 End: 06-03-2023 Methenamine Hippurate (HIPRE X) 1 gram tablet Start: 11-19-2022 End: 12-19-2022 take 1 tablet by mouth twice daily Methenamine Hippurate (HIPREX) 1 gram tablet Indications: Recurrent UTI Take 1 tablet by mouth twice daily. 60 tablet 11 11/19/2022 12/19/2022 Active Comment on above: Take 1 tablet by linda th twice daily. Take 1 tablet by linda th two times a day. metroNIDAZOLE 7.5 mg/ml topical cream (20 sources) Nitroimidazole Antimicrobial Start: 07-16-2019 Metronidazole 0.75 % cream Active 1 NMA TOPICAL DAILY July 16, 2019 12:00am skin health Start: 07-16-2019 Metronidazole Active 1 APPLIC TOPICAL TWICE A DAY July 15, 2019 11:00pm Start: 04-03-2017 End: 07-16-2019 Metronidazole 1 APPLIC gel D iscontinued 1 APPLICATIO TOPICAL TWICE A DAY April 03, 2017 12:00am July 16, 2019 1:21pm Start: 04-03-2017 End: 07-16-2019 Metronidazole Discontinued 1 APPLICATIO TOPICAL TWICE A DAY April 02, 2017 11:00pm July 16, 2019 12:21pm End: 04-05-2023 metroNIDAZOLE 0.75 % cream A pply to affected area once daily. Active Comment on above: Apply 1 application to affected area twice daily. Apply 1 application to affected area twice daily. Apply to areas of rosacea on the face Apply 1 application to affected area once daily. multivit-min/iron/folic acid/K (ADULTS MULTIVITAMIN ORAL) (20 sources) take 1 tablet by mouth once daily multivit-min/iron/foli c acid/K (ADULTS MULTIVITAMIN ORAL) Take 1 tablet by mouth once daily. Active take 1 tablet by mouth once dorinda y multivit-min/iron/folic acid/K (ADULTS MULTIVITAMIN ORAL) Take 1 tablet by mouth once daily. 0 Suspended take 1 tablet by mouth once dorinda y multivit-min/iron/folic acid/K (ADULTS MULTIVITAMIN ORAL) Take 1 tablet by mouth once daily. 0 Active multivit-min/iro n/folic acid/K (ADULTS MULTIVITAMIN ORAL) Take by mouth as directed. 0 Active Comment on above: Take by mouth as dir ected. Take 1 tablet by linda th once daily. Multivitamin preparation (7 sources) Start: 1 take 1 tablet by mouth once daily Multivitamin Active 1 TABLET PO DAILY May 17, 2021 11:00pm Start: 05-18-2021 take 1 tablet by linda th once daily Multivitamin Active 1 TABLET PO DAILY May 18, 2021 12:00am Multivitamin Tablet (6 sources) Start: 05-18-2021 Multivitamin T ablet Active 1 {tbl} PO DAILY May 18, 2021 12:00am vitamin Start: 05-18-2021 Multivitamin T ablet Active 1 {tbl} PO DAILY May 18, 2021 12:00am nitrofurantoin 5 mg/ml oral suspension (1 source) Nitrofuran Antibacterial Start: 08-17-2022 take 100 mg by mouth twice daily at mealtime Nitrofurantoin Active 100 MG PO TWICE A DAY 280 August 17, 2022 12:00am must administer with a meal/food nitrofurantoin, macrocrystals 25 mg / nitrofurantoin, monohydrate 75 mg oral capsule (20 sources) Nitrofuran Antibacterial Start: 01-02-2023 End: 01-20-2023 nitrofurantoin monohydrate and macrocrystal (MACROBID) 100 mg capsule Take 1 capsule by mouth twice daily for 6 days. Take for three days following surgery, and again for three days starting the day before your almanza removal 12 capsule 0 01/14/2023 01/20/2023 Active Start: 01-02-2023 End: 09-28-2023 take 1 capsule by mouth every twelve hours at mealtime Nitrofurantoin Monohyd/M-Cryst (Macrobid) 100 mg capsule Discontinued 100 mg PO Q12H 10 5 0 January 02, 2023 12:00am September 28, 2023 11:47am must administer with a meal/food Comment on above: Take by mouth. Take 1 capsule by [facility] twice daily for 7 days. Take 1 capsule by [facility] twice daily for 6 days. Take for three days following surgery, and again for three days starting the day before your almanza removal omeprazole 20 mg delayed release oral capsule (1 source) Proton Pump Inhibitor Start: 9 take 20 mg by mouth once daily Omeprazole Active 20 MG PO DAILY July 16, 2019 12:00am oxyCODONE hydrochloride 5 mg oral tablet (8 sources) Opioid Agonist Start: 3 End: 3 take 1 tablet by mouth every six hours as needed for pain oxyCODONE IR (ROXICODONE) 5 mg immediate release tablet Indications: BPH with urinary obstruction Take 1 tablet by mouth every 6 hours as needed for pain for up to 3 days. 4 tablet 0 01/14/2023 01/17/2023 Active Start: 08-02-2022 End: 08-09-2022 take 5 mL by mouth every six hours as needed oxyCODONE (ROXICODONE) 5 mg/5 mL oral solution Indications: Post-op pain Take 5 mL by mouth every 6 hours as needed for up to 7 days. 140 mL 0 08/02/2022 08/09/2022 Start: 01-28-2021 take 5 mg by mouth once daily Oxycodone Active 5 MG PO DAILY January 28, 2021 12:00am Comment on above: Take 5 mL by mouth e very 6 hours as needed for up to 7 days. Take 1 tablet by linda th every 6 hours as needed for pain for up to 3 days. pantoprazole 40 mg delayed release oral tablet (20 sources) Proton Pump Inhibitor Start: 12-23-19 End: 02-21-20 take 1 tablet by mouth twice daily pantoprazole DR (PROTONIX) 40 mg tablet Indications: Gastroesophageal reflux disease, unspecified whether esophagitis present Take 1 tablet by mouth two times a day. 90 tablet 1 11/21/2024 02/20/2025 Discontinued (Adjust Sig - Block E-Cancel) Start: 05-03-2022 End: 12-23-2023 take 1 tablet by mouth once daily pantoprazole DR (PROTONIX) 40 mg tablet Indications: Gastroesophageal reflux disease, unspecified whether esophagitis present Take 1 tablet by mouth once daily. 02/20/2025 Active Comment on above: Take 40 mg by mouth once daily. Take 1 tablet by linda th two times a day. perflutren lipid microspheres 1.3 mL in NaCl (PF) 0.9% 10 mL injection (DEFINITY) (20 sources) Start: 06-23-2022 End: 09-22-2023 perflutren lipid microspheres 1.3 mL in NaCl (PF) 0.9% 10 mL injection (DEFINITY) plecanatide 3 mg oral tablet (20 sources) Start: 01-08-2025 take 1 tablet by mouth once daily Plecanatide (Trulance) 3 mg tablet Active 3 mg PO DAILY January 08, 2025 12:00am Start: 10-15-2024 End: 12-31-2024 take 1 tablet by mouth once daily TRULANCE 3 mg tablet Take 3 mg by mouth once daily. 10/15/2024 12/31/2024 Discontinued polyethylene glycol 3350 [id number] mg powder for oral solution (20 sources) Osmotic Laxative Start: 04-12-2025 Polyethylene Glycol 3350 (Miralax) 17 gram/dose powder Active 4 g PO DAILY April 12, 2025 12:00am Start: 01-08-2025 End: 04-12-2025 Polyethylene Glycol 3350 (Clearlax) 17 gram/dose powder Discontinued 17 g PO DAILY January 08, 2025 12:00am April 12, 2025 2:49pm Start: 01-02-2023 End: 09-24-2023 take 1 capsule by mouth twice daily Polyethylene Glycol 3350 (Miralax) 17 gram/dose powder Discontinued 17 g PO DAILY 119 0 January 02, 2023 12:00am September 25, 2023 12:08am take 1 cap twice per day until regular BMs, then once daily Start: 04-03-2017 End: 03-13-2019 take 17 g by mouth once daily as needed for constipation Polyethylene Glycol 3350 17 GM packet Discontinued 17 g PO DAILY NEEDED as needed for Constipation April 03, 2017 12:00am March 13, 2019 1:23pm sertraline 25 mg oral tablet (20 sources) Serotonin Reuptake Inhibitor Start: 01-08-2025 take 1 tablet by mouth at lunch Sertraline (Zoloft) 25 mg tablet Active 25 mg PO WITH LUNCH April 12, 2025 12:00am lunch Start: 12-31-2024 take 1.5 tablets by mouth once daily sertraline (ZOLOFT) 25 mg tablet Take 1.5 tablets by mouth once daily. 135 tablet 1 12/31/2024 Active Start: 10-18-2024 End: 12-31-2024 take 1 tablet by mouth once daily sertraline (ZOLOFT) 25 mg tablet Take 1 tablet by mouth once daily. 90 tablet 1 10/18/2024 12/31/2024 Discontinued 125 ml sodium chloride 9 mg/ml prefilled syringe (20 sources) Start: 06-23-2022 End: 09-22-2023 sodium chloride 0.9 % (flush) 10 mL (BD POSIFLUSH) traZODone hydrochloride 100 mg oral tablet (20 sources) Serotonin Reuptake Inhibitor Start: 06-07-2024 End: 01-14-2025 take 1 tablet by mouth at bedtime Trazodone 100 mg tablet Active 100 mg PO AT BEDTIME January 08, 2025 12:00am Start: 10-05-2023 End: 06-07-2024 take 0.5 tablet by mouth once daily at bedtime traZODone (DESYREL) 50 mg tablet Take 0.5 tablets by mouth daily at bedtime. 45 tablet 1 10/05/2023 06/07/2024 Discontinued Start: 08-02-2022 End: 04-05-2023 take 0.5 tablet by mouth once daily at bedtime traZODone (DESYREL) 50 mg tablet Take 0.5 tablets by mouth daily at bedtime. 45 tablet 1 04/05/2023 Active Start: 07-08-2021 End: 03-30-2022 take 0.5 tablet by mouth once daily traZODone (DESYREL) 50 mg tablet Take 0.5 tablets by mouth once daily. 45 tablet 1 07/08/2021 03/30/2022 Discontinued Start: 01-28-2021 End: 01-08-2025 Trazodone 50 mg tablet Disco ntinued 25 mg PO AT BEDTIME January 28, 2021 12:00am January 08, 2025 11:30am sleep Start: 01-28-2021 take 25 mg by mouth at bedtime Trazodone Active 25 MG PO AT BEDTIME January 27, 2021 11:00pm Start: 01-28-2021 take 50 mg by mouth at bedtime Trazodone Active 50 MG PO AT BEDTIME January 27, 2021 11:00pm Comment on above: Take 0.5 tablets by mouth once daily. Take 0.5 tablets by mouth daily at bedtime. Triamcinolone (20 sources) Corticosteroid Start: 01-08-2025 triamcinolone acetonide Active 1 NMA TOPICAL DAILY as needed for itching January 08, 2025 12:00am Start: 01-08-2025 triamcinolone acetonide Active TOPICAL DAILY as needed for itching January 08, 2025 12:00am Start: 07-28-2022 triamcinolone acetonide (KENALOG) 0.1 % cream Apply 1 application to affected area as directed. 07/28/2022 Active Start: 07-28-2022 triamcinolone acetonide (KENALOG) 0.1 % cream Apply to affected areas (rosacea) as directed by provider 0 07/28/2022 Active Comment on above: Apply to affected ar eas (rosacea) as directed by provider Apply 1 application to affected area as directed. Completed/Discontinued Medications Medication Drug Class(es) Dates Sig (Normalized) Sig (Original) 0.9% NaCl 10 mL flush (1 source) Start: 11-14-2023 End: 11-14-2023 0.9% NaCl 10 mL flush acetaminophen 325 mg / HYDROcodone bitartrate 5 mg oral tablet (13 sources) Opioid Agonist Start: 04-13-2019 End: 04-22-2019 Hydrocodone-Acetamino phen 1 TABLET tablet Discontinued 1 {tbl} PO EVERY 4 HOURS NEEDED as needed for Pain 5 2 0 April 13, 2019 April 14, 2019 12:00am April 22, 2019 12:08am Postoperative pain Other acute postprocedural pain Start: 04-13-2019 End: 04-22-2019 take 1 tablet by mouth every four hours as needed Hydrocodone-Acetaminophen Discontinued 1 TABLET PO EVERY 4 HOURS NEEDED 5 2 April 13, 2019 April 21, 2019 11:08pm ascorbic acid 500 mg chewable tablet (20 sources) Vitamin C Start: 07-07-2024 End: 12-31-2024 take 1 tablet by mouth once daily Ascorbic Acid (VITAMIN C) 500 mg chew Take 1 tablet (500 mg) by mouth once daily. 90 tablet 1 07/07/2024 12/31/2024 Discontinued Start: 07-05-2024 End: 07-07-2024 take 1 tablet by mouth once daily ascorbic acid, vitamin C, (VITAMIN C) 500 mg tablet Indications: Anemia, chronic disease Take 1 tablet by mouth once daily. 90 tablet 07/05/2024 07/07/2024 Discontinued (Changing Therapy/Dosage Form) Start: 11-19-2022 End: 06-25-2024 take 1 tablet by mouth twice daily Ascorbic Acid (VITAMIN C) 1,000 mg tablet Indications: Recurrent UTI Take 1 tablet by mouth twice daily. 60 tablet 11 11/19/2022 06/25/2024 Discontinued Comment on above: Take 1 tablet by linda th twice daily. atorvastatin 10 mg oral tablet (20 sources) HMG-CoA Reductase Inhibitor Start: 08-20-20 End: 11-10-19 take 1 tablet by mouth once daily at bedtime for hyperlipidemia atorvastatin (LIPITOR) 10 mg tablet Take 1 tablet by mouth daily at bedtime. For cholesterol. 90 tablet 1 08/20/2024 11/10/2024 Discontinued (Clinical Decision) Start: 11-28-2023 End: 08-17-2024 take 1 tablet by mouth once daily at bedtime for hyperlipidemia atorvastatin (LIPITOR) 10 mg tablet Take 1 tablet by mouth daily at bedtime. For cholesterol. 90 tablet 1 05/30/2024 08/17/2024 Discontinued Start: 05-03-2022 End: 01-08-2025 Atorvastatin 10 mg tablet Discontinued 1 {tbl} PO AT BEDTIME May 03, 2022 12:00am January 08, 2025 11:28am cholesterol Start: 03-16-2022 End: 11-26-2023 take 1 tablet by mouth at bedtime Atorvastatin Active 1 TABLET PO AT BEDTIME May 02, 2022 11:00pm Comment on above: Take 1 tablet by linda th daily at bedtime. For cholesterol. 20 ml bupivacaine hydrochloride 7.5 mg/ml injection (3 sources) Amide Local Anesthetic Start: 11-14-2023 End: 11-14-2023 bupivacaine(PF) 0.75 % (7.5 mg/mL) 7.5 mg injection (MARCAINE PF) Start: 07-13-2023 End: 07-13-2023 BUPivacaine (PF) 0.5 % (5 mg /mL) 5 mg injection Start: 07-13-2023 End: 07-13-2023 bupivacaine(PF) 0.75 % (7.5 mg/mL) 7.5 mg injection (MARCAINE PF) calcium carbonate 1500 mg / cholecalciferol 0.01 mg oral tablet (20 sources) Vitamin D Start: 02-11-2020 End: 12-17-2022 take 1 tablet by mouth twice daily calcium carbonate 600 mg-cholecalciferol 400 units (CALCIUM 600 + D) 600 mg(1,500mg) -400 unit tab Indications: Hypercalciuria, idiopathic Take 1 tablet by mouth twice daily. 02/11/2020 12/17/2022 Discontinued Comment on above: Take 1 tablet by linda th twice daily. Calcium Carbonate / vitamin D3 (7 sources) Start: 01-28-2021 End: 09-24-2023 take 1 tablet by mouth at lunch Calcium Carbonate-Vitamin D3 Discontinued 1 TABLET PO WITH LUNCH January 27, 2021 11:00pm September 24, 2023 11:01pm Start: 01-28-2021 take 1 tablet by linda th at lunch Calcium Carbonate-Vitamin D3 Active 1 TABLET PO WITH LUNCH January 27, 2021 11:00pm Start: 01-28-2021 take 1 tablet by linda th at lunch Calcium Carbonate-Vitamin D3 Active 1 TABLET PO WITH LUNCH January 28, 2021 12:00am Start: 01-28-2021 take 1 tablet by linda th twice daily Calcium Carbonate-Vitamin D3 Active 1 TABLET PO TWICE A DAY January 28, 2021 12:00am Calcium Carbonate-Vitamin D3 600 mg(1,500mg) -500 unit Tablet Extended Release 24 Hr (6 sources) Start: 01-28-2021 End: 09-24-2023 Calcium Carbonate-Vitamin D3 600 mg(1,500mg) -500 unit Tablet Extended Release 24 Hr Discontinued 1 {tbl} PO WITH LUNCH January 28, 2021 12:00am September 25, 2023 12:01am cephalexin 500 mg oral capsule (20 sources) Cephalosporin Antibacterial Start: 10-15-2023 End: 01-06-2024 take 1 capsule by mouth three times daily cephALEXin (KEFLEX) 500 mg capsule Take 1 capsule by mouth three times a day. 30 capsule 0 10/15/2023 01/06/2024 Discontinued Start: 09-11-2023 End: 09-24-2023 take 1 capsule by mouth every twelve hours Cephalexin 500 mg capsule Discontinued 500 mg PO EVERY 12 HOURS 14 0 September 11, 2023 1:00am September 25, 2023 12:00am Comment on above: Take 1 capsule by mo [facility] three times a day. cetirizine hydrochloride 10 mg oral tablet (20 sources) Histamine-1 Receptor Antagonist Start: End: take 1 tablet by mouth once daily cetirizine (ZYRTEC) 10 mg tablet Indications: Seasonal allergies Take 1 tablet by mouth once daily. 90 tablet 1 06/25/2024 10/10/2024 Discontinued dexamethasone phosphate 10 mg/ml injectable solution (1 source) Corticosteroid Start: End: dexAMETHasone sodium phosphate 10 mg injection (DECADRON) diphenhydrAMINE hydrochloride 25 mg oral tablet (20 sources) Histamine-1 Receptor Antagonist Start: End: diphenhydrAMINE (BENADRYL) 25 mg tablet Take (2) tablets [address] 2 tablet 06/25/2024 10/10/2024 Discontinued (Course of therapy completed) Start: 06-25-2024 End: 06-25-2024 take 2 capsules intravenously once diphenhydrAMINE (BENADRYL) 25 mg capsule Indications: Allergic to IV contrast Take [address] 2 capsule 06/25/2024 06/25/2024 Discontinued docusate sodium 250 mg oral capsule (20 sources) Start: 05-03-2022 End: 01-08-2025 take 1 capsule by mouth twice daily Docusate Sodium 250 mg Capsule Discontinued 250 mg PO TWICE A DAY May 03, 2022 12:00am January 08, 2025 11:34am infection End: 12-31-2024 take 1 capsule by mouth twice daily docusate sodium (COLACE) 50 mg capsule Take 50 mg by mouth two times a day. 12/31/2024 Discontinued End: 02-23-2024 Docusate Sodium 250 mg capsu le Take 100 mg by mouth twice daily. 02/23/2024 Discontinued Comment on above: Take 250 mg by mouth twice daily. Take 100 mg by mouth twice daily. ferrous sulfate 60 mg/ml oral solution (20 sources) Start: 07-07-2024 End: 12-31-2024 take 5 mL by mouth once daily ferrous sulfate 300 mg (60 mg iron)/5 mL syrup Take 5 mL by mouth once daily. 150 mL 5 07/07/2024 12/31/2024 Discontinued Start: 07-05-2024 End: 07-07-2024 take 1 tablet by mouth once daily ferrous sulfate 325 mg (65 mg iron) tablet Indications: Anemia, chronic disease Take 1 tablet by mouth once daily. 90 tablet 07/05/2024 07/07/2024 Discontinued (Other) fexofenadine hydrochloride 180 mg oral tablet (20 sources) Histamine-1 Receptor Antagonist Start: 11-24-2022 End: 05-04-2024 fexofenadine (HESHAM ALLERGY) 180 mg tablet Take one tablet one to two times a day 60 tablet 11 11/24/2022 05/04/2024 Discontinued Comment on above: Take one tablet one to two times a day finasteride 5 mg oral tablet (20 sources) 5-alpha Reductase Inhibitor Start: 04-03-2017 End: 01-08-2025 take 1 tablet by mouth once daily Finasteride 5 MG tablet Discontinued 5 mg PO DAILY April 03, 2017 12:00am January 08, 2025 11:35am prostate Comment on above: Take 1 tablet by linda th once daily. fosfomycin 3000 mg powder for oral solution (5 sources) Start: 01-10-2025 End: 04-13-2025 Fosfomycin Tromethamine 3 gram packet Discontinued 1 NMA PO EVERY OTHER DAY 1 January 10, 2025 12:00am April 13, 2025 3:14pm furosemide 40 mg oral tablet (20 sources) Loop Diuretic Start: 05-03-2022 End: 01-08-2025 Furosemide (Lasix) 40 mg tablet Discontinued 20 mg PO NEEDED as needed for Edema May 03, 2022 7:00am January 08, 2025 11:31am Start: 07-22-2021 End: 01-26-2025 take 1 tablet by mouth once daily furosemide (LASIX) 20 mg tablet Take 1 tablet by mouth once daily. 90 tablet 1 01/28/2025 Active Start: 05-18-2021 End: 05-03-2022 take 1 tablet by mouth once daily Furosemide (Lasix) 40 mg tablet Discontinued 40 mg PO DAILY 3 0 May 18, 2021 12:00am May 03, 2022 7:01am Comment on above: Take 1 tablet by linda th once daily. gabapentin 300 mg oral capsule (20 sources) Anti-epileptic Agent Start: 06-20-2019 End: 07-16-2019 take 1 capsule by mouth twice daily Gabapentin 300 MG capsule Discontinued 300 mg PO TWICE A DAY June 20, 2019 12:00am July 16, 2019 1:25pm Start: 05-10-2019 End: 06-11-2019 take 1 capsule by mouth twice daily Gabapentin 300 mg capsule Discontinued 300 mg PO TWICE A DAY 60 30 0 May 10, 2019 12:00am June 08, 2019 12:00am June 11, 2019 12:08am guaifenesin/pseudoephedrne H Cl (MUCINEX D ORAL) (20 sources) End: 12-31-2024 take 1 tablet by mouth twice daily guaifenesin/pseudoephedrne HCl (MUCINEX D ORAL) Take 1 tablet by mouth two times a day. 12/31/2024 Discontinued (Course of therapy completed) take 1 tablet by linda th twice daily guaifenesin/pseudoephedrne HCl (MUCINEX D ORAL) Take 1 tablet by mouth two times a day. Active guaifenesin/pseu doephedrne HCl (MUCINEX D ORAL) Take by mouth. Active iohexol 300 mg IV injection (OMNIPAQUE 300) (1 source) Start: 07-13-2023 End: 07-13-2023 iohexol 300 mg IV injection (OMNIPAQUE 300) 10 ml iron sucrose 20 mg/ml injection (5 sources) Parenteral Iron Replacement Start: 11-02-2024 End: 11-02-2024 200 mg, INTRAVENOUS, ONCE, 1 dose, On Tue11/02/24 at 1500, Please conduct a 30 minute post dose observation. Start: 10-31-2024 End: 10-31-2024 200 mg, INTRAVENOUS, ONCE, 1 dose, On Tue10/31/24 at 1500, Please conduct a 30 minute post dose observation. Start: 10-29-2024 End: 10-29-2024 200 mg, INTRAVENOUS, ONCE, 1 dose, On Tue10/29/24 at 1500, Please conduct a 30 minute post dose observation. Start: 10-25-2024 End: 10-25-2024 200 mg, INTRAVENOUS, ONCE, 1 dose, On Tue10/25/24 at 1500, Please conduct a 30 minute post dose observation. Start: 10-23-2024 End: 10-23-2024 200 mg, INTRAVENOUS, ONCE, 1 dose, On Tu10/23/24 at 1530, Please conduct a 30 minute post dose observation. lactobacillus combination no.8 (ADULT PROBIOTIC ORAL) (20 sources) End: 10-04-2022 take 1 capsule by mouth once daily lactobacillus combination no.8 (ADULT PROBIOTIC ORAL) Take 1 capsule by mouth once daily. 10/04/2022 Discontinued End: 10-04-2022 take 1 capsule by mouth once daily lactobacillus combination no.8 (ADULT PROBIOTIC ORAL) Take 1 capsule by mouth once daily. 0 10/04/2022 Discontinued take 1 capsule by mo uth once daily lactobacillus combination no.8 (ADULT PROBIOTIC ORAL) Take 1 capsule by mouth once daily. 0 Suspended take 1 capsule by mo uth once daily lactobacillus combination no.8 (ADULT PROBIOTIC ORAL) Take 1 capsule by mouth once daily. 0 Active lactobacillus co mbination no.8 (ADULT PROBIOTIC ORAL) Take by mouth as directed. 0 Active Comment on above: Take by mouth as dir ected. Take 1 capsule by mo uth once daily. 10 ml lidocaine hydrochloride 20 mg/ml injection (2 sources) Antiarrhythmic, Amide Local Anesthetic Start: 11-14-2023 End: 11-14-2023 lidocaine (PF) 20 mg/mL (2 %) 200 mg injection (XYLOCAINE) Start: 07-13-2023 End: 07-13-2023 lidocaine (PF) 10 mg/mL (1 % ) 100 mg injection (XYLOCAINE) Meclizine (20 sources) Antiemetic End: 05-04-2024 meclizine HCl (ANTIVERT ORAL ) Take by mouth as needed. 05/04/2024 Discontinued End: 05-04-2024 meclizine HCl (ANTIVERT ORAL ) Take by mouth as needed. 0 05/04/2024 Discontinued meclizine HCl (A NTIVERT ORAL) Take by mouth as needed. 0 Active Comment on above: Take by mouth as nee ded. methocarbamol 500 mg oral tablet (20 sources) Muscle Relaxant End: take 1 tablet by mouth once daily as needed methocarbamol (ROBAXIN) 500 mg tablet Take 500 mg by mouth once daily as needed. 05/04/2024 Discontinued Comment on above: Take 500 mg by mouth once daily as needed. OTC PRODUCT (20 sources) End: OTC PRODUCT Taking stool softner 250 mg daily 07/30/2022 Discontinued OTC PRODUCT Taki ng stool softner 250 mg daily 0 Active Comment on above: Taking stool softner 250 mg daily predniSONE 50 mg oral tablet (20 sources) Start: 06-25-2024 End: 10-10-2024 predniSONE (DELTASONE) 50 mg Indications: Allergic to IV contrast Take 1 tablet [address], 7 hours prior and 1 hour prior 1 tablet 07/02/2024 10/10/2024 Discontinued (Course of therapy completed) Start: 07-14-2022 predniSONE (DE LTASONE) 50 mg Take 1 tablet by mouth every 8 hours. Take one tablet by mouth 18 hrs prior to cath, then 10 hrs prior to cath and then 2 hr prior to cath 3 tablet 0 07/14/2022 Active Start: 01-01-2022 End: 03-15-2022 predniSONE (DELTASONE) 50 mg Take one tab by mouth [address], take next dose [address] and take last dose [address] 3 tablet 01/01/2022 03/15/2022 Discontinued Comment on above: Take one tab by mout h [address], take next dose [address] and take last dose [address] Take 1 tablet by linda th every 8 hours. Take one tablet by mouth 18 hrs prior to cath, then 10 hrs prior to cath and then 2 hr prior to cath quinapril 5 mg oral tablet (20 sources) Angiotensin Converting Enzyme Inhibitor Start: 1 End: 3 take 1 tablet by mouth once daily Quinapril (Accupril) 5 mg Tablet Discontinued 5 mg PO DAILY May 03, 2022 12:00am September 25, 2023 12:10am Comment on above: Take 1 tablet by linda th once daily. Take 5 mg by mouth d aily at bedtime. Take 1 tablet by linda th daily at bedtime. SENNA-DOCUSATE SODIUM ORAL (5 sources) End: 4 take 1 capsule by mouth once daily SENNA-DOCUSATE SODIUM ORAL Take 1 capsule by mouth once daily. 0 05/04/2024 Discontinued take 1 capsule by mouth once ida ly SENNA-DOCUSATE SODIUM ORAL Take 1 capsule by mouth once daily. 0 Active sildenafil 50 mg oral tablet (13 sources) Phosphodiesterase 5 Inhibitor Start: 04-03-2017 End: 03-13-2019 Sildenafil 50 MG tablet Discontinued 50 mg PO NEEDED as needed for Not Specified April 03, 2017 12:00am March 13, 2019 1:26pm sulfamethoxazole 800 mg / trimethoprim 160 mg oral tablet (20 sources) Dihydrofolate Reductase Inhibitor Antibacterial, Sulfonamide Antimicrobial Start: 01-25-2025 End: 04-13-2025 Sulfamethoxazole-Tr imethoprim 800-160 mg tablet Discontinued 1 {tbl} PO TWICE A DAY January 29, 2025 12:00am April 13, 2025 3:20pm Start: 01-03-2024 End: 01-13-2024 take 1 tablet by mouth twice daily sulfamethoxazole-trimethoprim (BACTRIM D S) 800-160 mg per tablet Take 1 tablet by mouth two times a day for 4 days. 8 tablet 0 01/06/2024 01/10/2024 Active Start: 07-19-2022 End: 07-20-2022 take 1 tablet by mouth twice daily sulfamethoxazole-trimethoprim (BACTRIM D S) 800-160 mg per tablet Indications: Recurrent UTI Take 1 tablet by mouth twice daily. 14 tablet 0 07/20/2022 Active Start: 05-18-2021 take 1 tablet by linda th twice daily Sulfamethoxazole-Trimethoprim (Bactrim D s) 800-160 mg tablet Active 1 TABLET PO TWICE A DAY 14 May 18, 2021 12:00am Comment on above: Take 1 tablet by linda th twice daily. Take 1 tablet by linda th two times a day for 10 days. Take 1 tablet by linda th two times a day for 4 days. tamsulosin hydrochloride 0.4 mg oral capsule (20 sources) alpha-Adrenergic Arelis Start: 7 End: 5 take 1 capsule by mouth once daily Tamsulosin 0.4 MG capsule Discontinued 0.4 mg PO DAILY April 03, 2017 12:00am January 08, 2025 11:30am prostate Comment on above: Take 1 capsule by mo [facility] once daily. Problems Active Problems Problem Classification Problem Date Documented Da te Episodic/Chronic Abdominal hernia (20 sources) Left inguinal hernia ; Translations: [Unilateral inguinal hernia, without obstruction or gangrene, not specified as recurrent] Onset: 2 Episodic Abdominal pain (20 sources) Lower abdominal pain; Translations: [Lower abdominal pain, unspecified] Onset: 2 Episodic Adjustment disorders (20 sources) Reactive depression (situational); Translations: [Adjustment disorder with depressed mood] Onset: 1 02-27-2021 Chronic Allergic reactions (8 sources) Allergy to contrast media; Translations: [Radiographic dye allergy status] Onset: 4 06-25-2024 Episodic Anxiety disorders (20 sources) Anxiety; Translations: [Other specified anxiety disorders] Onset: 9 02-27-2021 Chronic Calculus of urinary tract (20 sources) Kidney stone; Translations: [Calculus of kidney] Onset: 7 Resolved: 4 02-27-2021 Episodic Deficiency and other anemia (20 sources) Iron deficiency anemia due to blood loss; Translations: [Iron deficiency anemia secondary to blood loss (chronic)] Onset: 3 Chronic Deficiency and other anemia (20 sources) Anemia of chronic disease; Translations: [Anemia in other chronic diseases classified elsewhere] Onset: 3 08-25-2023 Chronic Deficiency and other anemia (1 source) Anemia in other chronic diseases classified elsewhere; Translations: [Anemia, chronic disease] Onset: 3 Chronic Delirium, dementia, and amnestic and other cognitive disorders (20 sources) Dementia; Translations: [Unspecified dementia without behavioral disturbance] Onset: 4 11-25-2023 Chronic E Codes: Adverse effects of medical drugs (1 source) Adverse reaction to drug; Translations: [Adverse effect of unspecified drugs, medicaments and biological substances, sequela] 02-22-2025 Episodic Esophageal disorders (20 sources) Gastroesophageal reflux disease; Translations: [Gastro-esophageal reflux disease without esophagitis] Onset: 9 02-27-2021 Chronic Essential hypertension (20 sources) Benign essential hypertension; Translations: [Essential (primary) hypertension] Onset: 2 02-27-2021 Chronic Fever of unknown origin (10 sources) Fever; Translations: [Fever, unspecified] 09-24-2023 Episodic Fluid and electrolyte disorders (20 sources) Mild dehydration; Translations: [Dehydration] 01-30-2021 Episodic Genitourinary symptoms and ill-defined conditions (20 sources) Hypercalciuria; Translations: [Hypercalciuria] Onset: 0 02-27-2021 Episodic Headache; including migraine (20 sources) Episodic cluster headache; 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, not intractable] Onset: 5 09-09-2015 Chronic Hyperplasia of prostate (20 sources) Benign prostatic hypertrophy with outflow obstruction; Translations: [Benign prostatic hyperplasia with lower urinary tract symptoms] Onset: 7 02-27-2021 Chronic Immunity disorders (1 source) [place] light chain disease; Translations: [Other specified disorders involving the immune mechanism, not elsewhere classified] 09-03-2024 Chronic Malaise and fatigue (15 sources) Fatigue; Translations: [Other fatigue] Onset: 5 04-05-2023 Episodic Miscellaneous mental health disorders (5 sources) Dream anxiety disorder; 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] Onset: 4 06-07-2024 Chronic Nausea and vomiting (10 sources) Vomiting; Translations: [Vomiting, unspecified] 09-24-2023 Episodic Neoplasms of unspecified nature or uncertain behavior (2 sources) Monoclonal gammopathy (clinical); Translations: [Monoclonal gammopathy] Chronic Occlusion or stenosis of precerebral arteries (20 sources) Bilateral stenosis of carotid arteries; Translations: [Occlusion and stenosis of bilateral carotid arteries] Onset: 1 09-16-2021 Chronic Osteoarthritis (20 sources) Primary arthrosis of first carpometacarpal joints, bilateral; Translations: [Bilateral primary osteoarthritis of first carpometacarpal joints] Onset: 8 02-27-2021 Chronic Osteoporosis (20 sources) Osteoporosis; Translations: [Age-related osteoporosis without current pathological fracture] Onset: 0 02-27-2021 Chronic Other acquired deformities (2 sources) Degenerative scoliosis; Translations: [Other forms of scoliosis, site unspecified] Chronic Other acquired deformities (1 source) Other secondary scoliosis, site unspecified; Translations: [Disorder of bone and cartilage, unspecified] 07-20-2022 Chronic Other acquired deformities (6 sources) Scoliosis of lumbar spine; Translations: [Scoliosis, unspecified] 03-13-2024 Chronic Other acquired deformities (7 sources) Acquired kyphosis; Translations: [Other secondary kyphosis, thoracic region] 03-13-2024 Chronic Other acquired deformities (2 sources) Other secondary kyphosis, thoracic region; Translations: [Other secondary kyphosis, thoracic region] Onset: 5 Chronic Other acquired deformities (1 source) Scoliosis, unspecified; Translations: [Scoliosis of lumbar spine, unspecified scoliosis type] Onset: 5 Chronic Other acquired deformities (2 sources) Acquired spondylolisthesis; Translations: [Spondylolisthesis, site unspecified] Episodic Other bone disease and musculoskeletal deformities (20 sources) Idiopathic scoliosis of lumbar spine; Translations: [Other idiopathic scoliosis, lumbar region] Onset: 8 02-27-2021 Chronic Other circulatory disease (20 sources) Raynaud's phenomenon; Translations: [Raynaud's syndrome without gangrene] Onset: 5 02-27-2021 Chronic Other circulatory disease (13 sources) Transient hypotension; Translations: [Hypotension, unspecified] 01-30-2021 Episodic Other circulatory disease (10 sources) H/O: hypertension; Translations: [Personal history of other diseases of the circulatory system] 11-16-2022 Episodic Other connective tissue disease (12 sources) Synovial cyst of knee; Translations: [Synovial cyst of popliteal space [Nix], unspecified knee] 05-11-2022 Episodic Other connective tissue disease (5 sources) Pelvic floor dysfunction; Translations: [Other specified disorders of muscle] 12-19-2024 Episodic Other connective tissue disease (16 sources) Paraparesis; Translations: [Other symptoms and signs involving the musculoskeletal system] 01-08-2025 Episodic Other connective tissue disease (1 source) Other specified disorders of muscle; Translations: [Pelvic floor dysfunction] Onset: 5 Episodic Other connective tissue disease (3 sources) Recurrent falls ; Translations: [Repeated falls] 04-12-2025 Episodic Other connective tissue disease (2 sources) Repeated falls; Translations: [Repeated falls] Onset: 5 Episodic Other connective tissue disease (1 source) Muscle weakness (generalized); Translations: [Muscle weakness (generalized)] Onset: 5 Episodic Other gastrointestinal disorders (19 sources) Dysphagia; Translations: [Dysphagia, unspecified] Onset: 2 07-30-2022 Episodic Other gastrointestinal disorders (3 sources) Dysphagia, unspecified; Translations: [Dysphagia, unspecified type] Onset: 2 Episodic Other gastrointestinal disorders (10 sources) Constipation; Translations: [Constipation, unspecified] 01-02-2023 Episodic Other gastrointestinal disorders (1 source) Diarrhea; Translations: [Diarrhea, unspecified] 02-23-2024 Episodic Other gastrointestinal disorders (1 source) Dark stools; Translations: [Other fecal abnormalities] 02-23-2024 Episodic Other hematologic conditions (1 source) High troponin I level 01-21-2025 Episodic Other hereditary and degenerative nervous system conditions (20 sources) Essential tremor; Translations: [Essential tremor] Onset: 4 11-21-2023 Chronic Other hereditary and degenerative nervous system conditions (1 source) Essential tremor; Translations: [Essential tremor] Onset: 4 Chronic Other inflammatory condition of skin (20 sources) Rosacea; Translations: [Rosacea, unspecified] Onset: 5 02-27-2021 Chronic Other inflammatory condition of skin (1 source) Pruritus of skin; Translations: [Pruritus, unspecified] Episodic Other lower respiratory disease (6 sources) Rib pain; Translations: [Pleurodynia] 10-10-2024 Episodic Other lower respiratory disease (1 source) Productive cough ; Translations: [Sputum production] 02-22-2025 Episodic Other male genital disorders (20 sources) Secondary erectile dysfunction; Translations: [Male erectile dysfunction, unspecified] Onset: 8 02-27-2021 Chronic Other male genital disorders (1 source) Male erectile dysfunction, unspecified; Translations: [ED (erectile dysfunction) of organic origin] Onset: 1 Chronic Other nervous system disorders (20 sources) Ilioinguinal nerve neuralgia; Translations: [Unspecified mononeuropathy of left lower limb] Onset: 0 02-27-2021 Chronic Other nervous system disorders (1 source) Disorder of the peripheral nervous system; Translations: [Hereditary and idiopathic neuropathy, unspecified] 06-09-2023 Chronic Other nervous system disorders (20 sources) Neuropathy; Translations: [Polyneuropathy, unspecified] Onset: 4 08-30-2024 Chronic Other nervous system disorders (6 sources) Unable to walk; Translations: [Difficulty in walking, not elsewhere classified] 01-08-2025 Chronic Other nervous system disorders (1 source) Unspecified mononeuropathy of left lower limb; Translations: [Ilioinguinal neuralgia of left side] Onset: 4 Chronic Other nervous system disorders (2 sources) Polyneuropathy, unspecified; Translations: [Neuropathy - (NOS)] Onset: 4 Chronic Other nervous system disorders (1 source) Other chronic pain; Translations: [Chronic LLQ pain] Onset: 4 Chronic Other nervous system disorders (1 source) Other acute postprocedural pain; Translations: [Post-op pain] Onset: 2 Episodic Other nervous system disorders (1 source) Paresthesia of lower extremity; Translations: [Anesthesia of skin] 06-15-2024 Episodic Other non-traumatic joint disorders (4 sources) Swelling of bilateral feet; Translations: [Effusion, right ankle] Episodic Other screening for suspected conditions (not mental disorders or infectious disease) (2 sources) Abnormal radionuclide scan 12-03-2024 Chronic Other screening for suspected conditions (not mental disorders or infectious disease) (20 sources) Cardiovascular stress test abnormal; Translations: [Abnormal result of other cardiovascular function study] Onset: 2 07-16-2022 Episodic Other upper respiratory disease (1 source) Vocal cord paralysis; Translations: [Paralysis of vocal cords and larynx, unspecified] Chronic Other upper respiratory disease (1 source) Weakness of vocal cord ; Translations: [Paralysis of vocal cords and larynx, unspecified] Chronic Other upper respiratory disease (1 source) Seasonal allergy; Translations: [Other seasonal allergic rhinitis] 06-25-2024 Chronic Other upper respiratory disease (1 source) Other seasonal allergic rhinitis; Translations: [Seasonal allergies] Onset: 4 Chronic Residual codes; unclassified (20 sources) Dependence on other enabling machines and devices; Translations: [Dependence on other enabling machines] Onset: 1 05-11-2021 Chronic Residual codes; unclassified (20 sources) Family history of malignant neoplasm of gastrointestinal tract; Translations: [Family history of malignant neoplasm of digestive organs] 02-27-2021 Episodic Residual codes; unclassified (13 sources) Bilateral lower limb edema; Translations: [Localized edema] 05-03-2022 Episodic Residual codes; unclassified (11 sources) Chill; Translations: [Chills (without fever)] 08-25-2022 Episodic Residual codes; unclassified (12 sources) Memory impairment; Translations: [Other amnesia] Onset: 4 Episodic Residual codes; unclassified (10 sources) Edema; Translations: [Edema, unspecified] 11-16-2022 Episodic Residual codes; unclassified (1 source) Intolerant of cold; Translations: [Other general symptoms and signs] 10-10-2024 Episodic Septicemia (except in labor) (20 sources) Sepsis without septic shock; Translations: [Sepsis, unspecified organism] Onset: 1 Resolved: 5 09-25-2023 Episodic Spondylosis; intervertebral disc disorders; other back problems (20 sources) Degeneration of lumbar intervertebral disc; Translations: [Other intervertebral disc degeneration, lumbar region] Onset: 2 02-27-2021 Chronic Spondylosis; intervertebral disc disorders; other back problems (20 sources) Lumbar radiculopathy; Translations: [Radiculopathy, lumbar region] Onset: 0 Resolved: 3 02-27-2021 Episodic Syncope (10 sources) Near syncope; Translations: [Syncope and collapse] 09-24-2023 Episodic Thyroid disorders (20 sources) Thyroid nodule; Translations: [Nontoxic single thyroid nodule] Onset: 1 02-27-2021 Chronic Unclassified (2 sources) Patient encounter status 04-01-2025 Urinary tract infections (20 sources) Urinary tract infectious disease; Translations: [Urinary tract infection, site not specified] Onset: 2 Episodic Past or Other Problems Problem Classification Problem Date Documented Date Episodic/Chronic Acute and unspecified renal failure (20 sources) Acute renal failure syndrome; Translations: [Acute kidney failure, unspecified] Onset: 1 Resolved: 1 12-22-2020 Episodic Administrative/social admission (20 sources) Advance directive discussed with patient; Translations: [Other specified counseling] Onset: 3 Episodic Anal and rectal conditions (20 sources) Chronic anal fissure; 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] Onset: 7 Resolved: 8 09-28-2017 Episodic Biliary tract disease (20 sources) Postcholecystectomy syndrome; 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] Onset: 1 Resolved: 4 09-05-2014 Episodic Coagulation and hemorrhagic disorders (20 sources) Thrombocytopenic disorder; Translations: [Thrombocytopenia, unspecified] Onset: 1 Resolved: 1 12-22-2020 Chronic Complications of surgical procedures or medical care (20 sources) Pulmonary insufficiency following surgery; Translations: [Other postprocedural complications and disorders of respiratory system, not elsewhere classified] Onset: 1 Resolved: 1 12-22-2020 Episodic Deficiency and other anemia (20 sources) Anemia; Translations: [Other specified anemias] Onset: 2 03-16-2022 Episodic Deficiency and other anemia (20 sources) Iron deficiency anemia; Translations: [Iron deficiency anemia, unspecified] Onset: 4 Episodic Deficiency and other anemia (1 source) Iron deficiency anemia, unspecified; Translations: [Iron deficiency anemia, unspecified iron deficiency anemia type] Onset: 5 Episodic Diabetes mellitus without complication (20 sources) Hyperglycemia; Translations: [Hyperglycemia, unspecified] Onset: 1 08-31-2021 Episodic Digestive congenital anomalies (20 sources) Esophageal diverticulum; Translations: [Congenital diverticulum of esophagus] Onset: 2 Resolved: 3 Chronic Gastritis and duodenitis (20 sources) Duodenitis; Translations: [Duodenitis without bleeding] Onset: 9 Resolved: 4 09-05-2014 Episodic Immunizations and screening for infectious disease (3 sources) Vaccination needed; Translations: [Encounter for immunization] Onset: 5 04-05-2023 Episodic Inflammatory conditions of male genital organs (20 sources) Prostatocystitis; Translations: [Prostatocystitis] Onset: 9 Resolved: 3 08-13-2013 Episodic Nutritional deficiencies (20 sources) Moderate protein energy malnutrition; Translations: [Moderate protein-calorie malnutrition] Onset: 2 Resolved: 3 08-27-2022 Chronic Other aftercare (20 sources) Patient encounter status; Translations: [Other long-term (current) drug therapy] Onset: 1 08-31-2021 Episodic Other aftercare (1 source) Other long-term (current) drug therapy; Translations: [Medication management] Onset: 1 Episodic Other circulatory disease (20 sources) Hemodynamic instability; Translations: [Other specified symptoms and signs involving the circulatory and respiratory systems] Onset: 1 Resolved: 1 02-27-2021 Episodic Other connective tissue disease (20 sources) History of lumbar fusion; Translations: [Arthrodesis status] Onset: 1 02-27-2021 Episodic Other connective tissue disease (20 sources) Muscle weakness of limb; Translations: [Other symptoms and signs involving the musculoskeletal system] Onset: 1 05-21-2021 Episodic Other connective tissue disease (20 sources) Full thickness rotator cuff tear; Translations: [Complete rotator cuff tear or rupture of unspecified shoulder, not specified as traumatic] Onset: 3 Resolved: 4 09-05-2014 Episodic Other connective tissue disease (20 sources) Other symptoms and signs involving the musculoskeletal system; Translations: [Other musculoskeletal symptoms referable to limbs] Onset: 4 06-15-2024 Episodic Other connective tissue disease (20 sources) Pain of bilateral hands; Translations: [Pain in right hand] Onset: 4 06-15-2024 Episodic Other connective tissue disease (1 source) Pain in right hand; Translations: [Pain in both hands] Onset: 4 Episodic Other connective tissue disease (1 source) Pain in left hand; Translations: [Pain in both hands] Onset: 4 Episodic Other diseases of kidney and ureters (20 sources) Hydronephrosis; Translations: [Unspecified hydronephrosis] Onset: 2 Resolved: 4 09-05-2014 Episodic Other diseases of kidney and ureters (1 source) Other obstructive and reflux uropathy; Translations: [BPH with urinary obstruction] Onset: 1 Episodic Other gastrointestinal disorders (20 sources) Chronic constipation; Translations: [Other constipation] Onset: 1 02-27-2021 Episodic Other gastrointestinal disorders (20 sources) Oropharyngeal dysphagia; Translations: [Dysphagia, oropharyngeal phase] Onset: 1 12-29-2020 Episodic Other gastrointestinal disorders (20 sources) Loose stool; Translations: [Other fecal abnormalities] Onset: 4 11-21-2023 Episodic Other gastrointestinal disorders (1 source) Other constipation; Translations: [Chronic constipation] Onset: 1 Episodic Other hematologic conditions (20 sources) Protein electrophoresis abnormal; Translations: [Other specified abnormalities of plasma proteins] Onset: 3 Episodic Other hematologic conditions (1 source) Other specified abnormalities of plasma proteins; Translations: [Abnormal SPEP] Onset: 3 Episodic Other inflammatory condition of skin (20 sources) Itching of skin; Translations: [Pruritus, unspecified] Onset: 3 Episodic Other inflammatory condition of skin (20 sources) Pruritus, unspecified; Translations: [Unspecified pruritic disorder] Onset: 3 12-14-2022 Episodic Other injuries and conditions due to external causes (20 sources) H/O: vertebral fracture; Translations: [Personal history of (healed) traumatic fracture] Onset: 0 09-10-2021 Episodic Other lower respiratory disease (1 source) Pleurodynia; Translations: [Rib pain on left side] Onset: 5 Episodic Other male genital disorders (20 sources) Disorder of prostate; Translations: [Disorder of prostate, unspecified] Onset: 1 08-31-2021 Episodic Other nervous system disorders (20 sources) Abnormal gait; Translations: [Unsteadiness on feet] Onset: 1 05-21-2021 Episodic Other nervous system disorders (20 sources) Impaired cognition; Translations: [Other symptoms and signs involving cognitive functions and awareness] Onset: 3 Episodic Other nervous system disorders (1 source) Unsteadiness on feet; Translations: [Unstable gait] Onset: 3 Episodic Other nervous system disorders (2 sources) Anesthesia of skin; Translations: [Anesthesia of skin] Onset: 5 Episodic Other nervous system disorders (1 source) Paresthesia of skin; Translations: [Paresthesia of skin] Onset: 5 Episodic Other non-epithelial cancer of skin (20 sources) History of malignant neoplasm of skin; Translations: [Personal history of other malignant neoplasm of skin] Onset: 6 08-15-2006 Episodic Other nutritional; endocrine; and metabolic disorders (20 sources) Hypomagnesemia; Translations: [Hypomagnesemia] Onset: 1 Resolved: 1 12-17-2020 Chronic Other nutritional; endocrine; and metabolic disorders (20 sources) Hypophosphatemia; 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: 1 Resolved: 1 12-17-2020 Chronic Other skin disorders (20 sources) Epidermoid cyst of skin; Translations: [Epidermal cyst] Onset: 3 Resolved: 4 09-05-2014 Episodic Pathological fracture (5 sources) Pathological fracture; Translations: [Pathological fracture, other site, initial encounter for fracture] Onset: 5 12-03-2024 Episodic Residual codes; unclassified (20 sources) Peripheral edema; Translations: [Edema, unspecified] Onset: 2 Episodic Residual codes; unclassified (20 sources) Active living will ; Translations: [Other specified health status] Onset: 3 10-04-2022 Episodic Residual codes; unclassified (20 sources) Delirium; Translations: [Disorientation, unspecified] Onset: 1 Resolved: 1 12-22-2020 Episodic Residual codes; unclassified (1 source) Localized edema; Translations: [Peripheral edema] Onset: 3 Episodic Residual codes; unclassified (1 source) Other general symptoms and signs; Translations: [Cold intolerance] Onset: 5 Episodic Unclassified (12 sources) history exacorporeal shock wave lithrotripsy 04-15-2022 Unclassified (12 sources) history lap hiatal hernia repair 04-15-2022 Unclassified (12 sources) history repair left thumb 04-15-2022 Unclassified (12 sources) history ureteral stent insertion 04-15-2022 Results Test Name Value Interpretation Reference Range Facility Absolute lymphocyte countOrd ered By: Elias Kaur on 04-16-2025 Lymphocytes Auto (Unsp spec) [#/Vol] 2.02 10*3/uL 0.83-4.51 [facility] Absolute neutrophil countOrd ered By: Elias Kaur on 04-16-2025 Neutrophils (Bld) [#/Vol] 1.9 10*3/uL Low 2.0-7.7 [facility] Anion gap in Serum or Plasma Ordered By: Elias Kaur on 04-16-2025 Anion gap [Moles/Vol] 10 mmol/L 5-15 [facility] Automated lymphocyte count a s percentage of total leukocytesOrdered By: Elias Kaur on 04-16-2025 Lymphocytes/100 WBC Auto (Unsp spec) 43.9 % High 19-41 [facility] BUN/creatinine ratioOrdered By: Elias Kaur on 04-16-2025 Urea nitrogen/Creatinine [Mass ratio] 21.5 mg/mg High 10-20 [facility] Basic Metabolic Profile (BMP )on 04-16-2025 BUN/CRE 21.5 RATIO High 10-20 [facility] Comment on above: Performed By: #### L 500.2500, L100.0100 #### [facility] [address] [place], [address] Calcium [Mass/Vol] 9.0 mg/dL Normal 7.6-11.0 [facility] Comment on above: Performed By: #### L 500.2500, L100.0100 #### [facility] [address] [place], [address] Chloride [Moles/Vol] 104 mmol/L Normal 98-108 [facility] Comment on above: Performed By: #### L 500.2500, L100.0100 #### [facility] [address] [place], [address] CO2 [Moles/Vol] 26.5 mmol/L Normal 21.0-32.0 [facility] Comment on above: Performed By: #### L 500.2500, L100.0100 #### [facility] [address] [place], [address] Creatinine [Mass/Vol] 0.87 mg/dL Normal 0.70-1.20 [facility] Comment on above: Performed By: #### L 500.2500, L100.0100 #### [facility] [address] [place], [address] ECRCL 63.33 ml/min Normal 50-250 [facility] Comment on above: Performed By: #### L 500.2499, L100.0100 #### [facility] [address] [place], [address] GAP 10 Normal 5-15 [facility] Comment on above: Performed By: #### L 500.2499, L100.0100 #### [facility] [address] [place], [address] GFR/1.73 sq M.predicted among non-blacks MDRD (S/P/Bld) [Vol rate/Area] 86 mL/min/{1.73_m2} Normal >60 [facility] Comment on above: Result Comment: mL/m in/1.73m2 CKD-EPI Creatinine Equation (2020) Performed By: #### L 500.2499, L100.0100 #### [facility] [address] [place], [address] Glucose [Mass/Vol] 91 mg/dL Normal 70-99 [facility] Comment on above: Performed By: #### L 500.2500, L100.0100 #### [facility] [address] [place], [address] Potassium [Moles/Vol] 3.8 mmol/L Normal 3.3-5.1 [facility] Comment on above: Performed By: #### L 500.2500, L100.0100 #### [facility] [address] [place], [address] Sodium [Moles/Vol] 140 mmol/L Normal 133-145 [facility] Comment on above: Performed By: #### L 500.2500, L100.0100 #### [facility] [address] [place], [address] Urea nitrogen [Mass/Vol] 19 mg/dL Normal 4-19 [facility] Comment on above: Performed By: #### L 500.2500, L100.0100 #### [facility] [address] [place], [address] Basophil percentageOrdered B y: Elias Kaur on 04-16-2025 Basophils/100 WBC (Bld) 0.9 % 0-1 [facility] CBC W/Diff, Automatedon 03-27 Absolute Lymph 2.02 X10 3/uL Normal 0.83-4.51 [facility] Comment on above: Performed By: #### L 500.2500, L100.0100 #### [facility] [address] [place], [address] Absolute Neut 1.9 X10 3/uL Low 2.0-7.7 [facility] Comment on above: Performed By: #### L 500.2500, L100.0100 #### [facility] [address] [place], [address] Basophils/100 WBC (Bld) 0.9 % Normal 0-1 [facility] Comment on above: Performed By: #### L 500.2500, L100.0100 #### [facility] [address] [place], [address] Eosinophils/100 WBC (Bld) 2.4 % Normal 0-5 [facility] Comment on above: Performed By: #### L 500.2500, L100.0100 #### [facility] [address] [place], [address] Erythrocyte distribution width (RBC) [Ratio] 12.4 % Normal 11.6-14.6 [facility] Comment on above: Performed By: #### L 500.2500, L100.0100 #### [facility] [address] [place], [address] Hematocrit (Bld) [Volume fraction] 35.8 % Low 40-54 [facility] Comment on above: Performed By: #### L 500.2500, L100.0100 #### [facility] [address] [place], [address] Hemoglobin (Bld) [Mass/Vol] 11.7 g/dL Low 13.0-16.5 [facility] Comment on above: Performed By: #### L 500.2500, L100.0100 #### [facility] [address] [place], [address] IG% 0.200 Normal 0.0-0.9 [facility] Comment on above: Result Comment: IG% - Immature Granulocytes (promyelocytes, myelocytes and metamyelocytes) > 1% indicates that a LEFT SHIFT is Present. Performed By: #### L 500.2500, L100.0100 #### [facility] [address] [place], [address] Lymphocytes/100 WBC (Bld) 43.9 % High 19-41 [facility] Comment on above: Performed By: #### L 500.2500, L100.0100 #### [facility] [address] [place], [address] MCH (RBC) [Entitic mass] 31.7 pg Normal 27.0-32.0 [facility] Comment on above: Performed By: #### L 500.2500, L100.0100 #### [facility] [address] [place], [address] MCHC (RBC) [Mass/Vol] 32.7 g/dL Normal 32-36 [facility] Comment on above: Performed By: #### L 500.2500, L100.0100 #### [facility] [address] [place], [address] MCV (RBC) [Entitic vol] 97.0 fL High 80-94 [facility] Comment on above: Performed By: #### L 500.2500, L100.0100 #### [facility] [address] [place], [address] Monocytes/100 WBC (Bld) 10.7 % High 0-10 [facility] Comment on above: Performed By: #### L 500.2500, L100.0100 #### [facility] [address] [place], [address] Neutrophils/100 WBC (Bld) 41.9 % Low 47-70 [facility] Comment on above: Performed By: #### L 500.2500, L100.0100 #### [facility] [address] [place], [address] Nucleated RBC (Bld) [#/Vol] 0 10*3/uL Normal 0-5 [facility] Comment on above: Performed By: #### L 500.2500, L100.0100 #### [facility] [address] [place], [address] Platelet mean volume (Bld) [Entitic vol] 8.9 fL Normal 6.2-12.0 [facility] Comment on above: Performed By: #### L 500.2500, L100.0100 #### [facility] [address] [place], [address] Platelets (Bld) [#/Vol] 220 10*3/uL Normal 150-450 [facility] Comment on above: Performed By: #### L 500.2500, L100.0100 #### [facility] [address] [place], [address] RBC (Bld) [#/Vol] 3.69 10*6/uL Low 4.6-6.2 [facility] Comment on above: Performed By: #### L 500.2500, L100.0100 #### [facility] [address] [place], [address] RDW SD 44.0 fl High 35.1-43.9 [facility] Comment on above: Performed By: #### L 500.2500, L100.0100 #### [facility] [address] [place], [address] WBC (Bld) [#/Vol] 4.6 10*3/uL Normal 4.4-11.0 [facility] Comment on above: Performed By: #### L 500.2500, L100.0100 #### [facility] [address] [place], [address] Carbon dioxide, total [Moles /volume] in Central venous bloodOrdered By: Elias Kaur on 04-16-2025 CO2 [Moles/Vol] 26.5 mmol/L 21.0-32.0 [facility] Chloride assayOrdered By: Stevie Kaur on 04-16-2025 Chloride [Moles/Vol] 104 mmol/L 98-108 [facility] Eosinophil percentageOrdered By: Elias Kaur on 04-16-2025 Eosinophils/100 WBC (Bld) 2.4 % 0-5 [facility] Erythrocyte distribution wid th ratioOrdered By: Elias Kaur on 04-16-2025 Erythrocyte distribution width (RBC) [Ratio] 12.4 % 11.6-14.6 [facility] Erythrocyte distribution wid th standard deviationOrdered By: Elias Kaur on 04-16-2025 Erythrocyte distribution width (RBC) [Ratio] 44.0 fl High 35.1-43.9 [facility] Glomerular filtration rate ( GFR) estimation/1.73 sq m using serum, plasma, or whole bOrdered By: Elias Kaur on 04-16-2025 GFR/1.73 sq M.predicted among non-blacks MDRD (S/P/Bld) [Vol rate/Area] 86 mL/min/{1.73_m2} >60 [facility] Comment on above: mL/min/1.73m2 CKD-EP I Creatinine Equation (2020) Hematocrit Auto (Bld) [Volum e fraction]Ordered By: Elias Kaur on 04-16-2025 Hematocrit (Bld) [Volume fraction] 35.8 % Low 40-54 [facility] Hemoglobin measurementOrdere d By: Elias Kaur on 04-16-2025 Hemoglobin (Bld) [Mass/Vol] 11.7 g/dL Low 13.0-16.5 [facility] Immature granulocytes/100 WB C Auto (Bld)Ordered By: Elias Kaur on 04-16-2025 Immature granulocytes/100 WBC (Bld) 0.200 % 0.0-0.9 [facility] Comment on above: IG% - Immature Granu locytes (promyelocytes, myelocytes and metamyelocytes) > 1% indicates that a LEFT SHIFT is Present. MCV (mean corpuscular volume ) determinationOrdered By: Elias Kaur on 04-16-2025 MCV (RBC) [Entitic vol] 97.0 fL High 80-94 [facility] Mean corpuscular hemoglobin (MCH) determinationOrdered By: Elias Kaur on 04-16-2025 MCH (RBC) [Entitic mass] 31.7 pg 27.0-32.0 [facility] Mean corpuscular hemoglobin concentration (MCHC) determinationOrdered By: Elias Kaur on 04-16-2025 MCHC (RBC) [Mass/Vol] 32.7 g/dL 32-36 [facility] Mean platelet volume determi nationOrdered By: Elias Kaur on 04-16-2025 Platelet mean volume (Bld) [Entitic vol] 8.9 fL 6.2-12.0 [facility] Monocyte percentageOrdered B y: Elias Kaur on 04-16-2025 Monocytes/100 WBC (Bld) 10.7 % High 0-10 [facility] Neutrophil percentageOrdered By: Elias Kaur on 04-16-2025 Neutrophils/100 WBC (Bld) 41.9 % Low 47-70 [facility] Nucleated red blood cell per centageOrdered By: Elias Kaur on 04-16-2025 Nucleated RBC/100 WBC (Bld) [Ratio] 0 % 0-5 [facility] Platelet countOrdered By: Stevie Kaur on 04-16-2025 Platelets (Bld) [#/Vol] 220 10*3/uL 150-450 [facility] Potassium measurement (mass/ volume)Ordered By: Elias Kuar on 04-16-2025 Potassium (Unsp spec) [Mass/Vol] 3.8 mmol/L 3.3-5.1 [facility] RBC Auto (Bld) [#/Vol]Ordere d By: Elias Kaur on 04-16-2025 RBC (Bld) [#/Vol] 3.69 10*6/uL Low 4.6-6.2 [facility] Serum creatinine measurement (mass/volume)Ordered By: Elias Kaur on 04-16-2025 Creatinine [Mass/Vol] 0.87 mg/dL 0.70-1.20 [facility] Serum glucose measurement (m ass/volume)Ordered By: Elias Kaur on 04-16-2025 Glucose [Mass/Vol] 91 mg/dL 70-99 [facility] Serum or plasma calcium shon urement (mass/volume)Ordered By: Elias Kaur on 04-16-2025 Calcium [Mass/Vol] 9.0 mg/dL 7.6-11.0 [facility] Serum or plasma urea nitroge n measurement (mass/volume)Ordered By: Elias Kaur on 04-16-2025 Urea nitrogen [Mass/Vol] 19 mg/dL 4-19 [facility] Sodium levelOrdered By: Andres Kaur on 04-16-2025 Sodium [Moles/Vol] 140 mmol/L 133-145 [facility] White blood cell (WBC) count Ordered By: Elias Kaur on 04-16-2025 WBC (Bld) [#/Vol] 4.6 10*3/uL 4.4-11.0 [facility] Basic Metabolic Profile (BMP )on 04-15-2025 BUN/CRE 18.3 RATIO Normal 10-20 [facility] Comment on above: Performed By: #### L 500.2500, L100.0100 #### [facility] [address] [place], [address] Calcium [Mass/Vol] 9.3 mg/dL Normal 7.6-11.0 [facility] Comment on above: Performed By: #### L 500.2500, L100.0100 #### [facility] [address] [place], [address] Chloride [Moles/Vol] 103 mmol/L Normal 98-108 [facility] Comment on above: Performed By: #### L 500.2500, L100.0100 #### [facility] [address] [place], [address] CO2 [Moles/Vol] 26.9 mmol/L Normal 21.0-32.0 [facility] Comment on above: Performed By: #### L 500.2500, L100.0100 #### [facility] [address] [place], [address] Creatinine [Mass/Vol] 0.89 mg/dL Normal 0.70-1.20 [facility] Comment on above: Performed By: #### L 500.2500, L100.0100 #### [facility] [address] [place], [address] ECRCL 61.91 ml/min Normal 50-250 [facility] Comment on above: Performed By: #### L 500.2500, L100.0100 #### [facility] [address] [place], [address] GAP 11 Normal 5-15 [facility] Comment on above: Performed By: #### L 500.2500, L100.0100 #### [facility] [address] [place], [address] GFR/1.73 sq M.predicted among non-blacks MDRD (S/P/Bld) [Vol rate/Area] 86 mL/min/{1.73_m2} Normal >60 [facility] Comment on above: Result Comment: mL/m in/1.73m2 CKD-EPI Creatinine Equation (2020) Performed By: #### L 500.2500, L100.0100 #### [facility] [address] [place], [address] Glucose [Mass/Vol] 91 mg/dL Normal 70-99 [facility] Comment on above: Performed By: #### L 500.2500, L100.0100 #### [facility] [address] [place], [address] Potassium [Moles/Vol] 3.7 mmol/L Normal 3.3-5.1 [facility] Comment on above: Performed By: #### L 500.2500, L100.0100 #### [facility] [address] [place], [address] Sodium [Moles/Vol] 141 mmol/L Normal 133-145 [facility] Comment on above: Performed By: #### L 500.2500, L100.0100 #### [facility] [address] [place], [address] Urea nitrogen [Mass/Vol] 16 mg/dL Normal 4-19 [facility] Comment on above: Performed By: #### L 500.2500, L100.0100 #### [facility] [address] [place], [address] CBC W/Diff, Automatedon 07-2 Absolute Lymph 1.80 X10 3/uL Normal 0.83-4.51 [facility] Comment on above: Performed By: #### L 500.2500, L100.0100 #### [facility] [address] [place], [address] Absolute Neut 1.8 X10 3/uL Low 2.0-7.7 [facility] Comment on above: Performed By: #### L 500.2500, L100.0100 #### [facility] [address] [place], [address] Basophils/100 WBC (Bld) 0.5 % Normal 0-1 [facility] Comment on above: Performed By: #### L 500.2500, L100.0100 #### [facility] [address] [place], [address] Eosinophils/100 WBC (Bld) 2.2 % Normal 0-5 [facility] Comment on above: Performed By: #### L 500.2500, L100.0100 #### [facility] [address] [place], [address] Erythrocyte distribution width (RBC) [Ratio] 12.4 % Normal 11.6-14.6 [facility] Comment on above: Performed By: #### L 500.2500, L100.0100 #### [facility] [address] [place], [address] Hematocrit (Bld) [Volume fraction] 37.4 % Low 40-54 [facility] Comment on above: Performed By: #### L 500.2500, L100.0100 #### [facility] [address] [place], [address] Hemoglobin (Bld) [Mass/Vol] 12.3 g/dL Low 13.0-16.5 [facility] Comment on above: Performed By: #### L 500.2500, L100.0100 #### [facility] [address] [place], [address] IG% 0.000 Normal 0.0-0.9 [facility] Comment on above: Result Comment: IG% - Immature Granulocytes (promyelocytes, myelocytes and metamyelocytes) > 1% indicates that a LEFT SHIFT is Present. Performed By: #### L 500.2500, L100.0100 #### [facility] [address] [place], [address] Lymphocytes/100 WBC (Bld) 44.1 % High 19-41 [facility] Comment on above: Performed By: #### L 500.2500, L100.0100 #### [facility] [address] [place], [address] MCH (RBC) [Entitic mass] 31.8 pg Normal 27.0-32.0 [facility] Comment on above: Performed By: #### L 500.2500, L100.0100 #### [facility] [address] [place], [address] MCHC (RBC) [Mass/Vol] 32.9 g/dL Normal 32-36 [facility] Comment on above: Performed By: #### L 500.2500, L100.0100 #### [facility] [address] [place], [address] MCV (RBC) [Entitic vol] 96.6 fL High 80-94 [facility] Comment on above: Performed By: #### L 500.2500, L100.0100 #### [facility] [address] [place], [address] Monocytes/100 WBC (Bld) 9.6 % Normal 0-10 [facility] Comment on above: Performed By: #### L 500.2500, L100.0100 #### [facility] [address] [place], [address] Neutrophils/100 WBC (Bld) 43.6 % Low 47-70 [facility] Comment on above: Performed By: #### L 500.2500, L100.0100 #### [facility] [address] [place], [address] Nucleated RBC (Bld) [#/Vol] 0 10*3/uL Normal 0-5 [facility] Comment on above: Performed By: #### L 500.2500, L100.0100 #### [facility] [address] [place], [address] Platelet mean volume (Bld) [Entitic vol] 9.0 fL Normal 6.2-12.0 [facility] Comment on above: Performed By: #### L 500.2500, L100.0100 #### [facility] [address] [place], [address] Platelets (Bld) [#/Vol] 210 10*3/uL Normal 150-450 [facility] Comment on above: Performed By: #### L 500.2500, L100.0100 #### [facility] [address] [place], [address] RBC (Bld) [#/Vol] 3.87 10*6/uL Low 4.6-6.2 [facility] Comment on above: Performed By: #### L 500.2500, L100.0100 #### [facility] [address] [place], [address] RDW SD 43.6 fl Normal 35.1-43.9 [facility] Comment on above: Performed By: #### L 500.2500, L100.0100 #### [facility] [address] [place], [address] WBC (Bld) [#/Vol] 4.1 10*3/uL Low 4.4-11.0 [facility] Comment on above: Performed By: #### L 500.2500, L100.0100 #### [facility] [address] [place], [address] Basic Metabolic Profile (BMP )on 04-14-2025 BUN/CRE 19.8 RATIO Normal 10-20 [facility] Comment on above: Performed By: #### L 500.2500, L100.0100 #### [facility] [address] [place], [address] Calcium [Mass/Vol] 9.0 mg/dL Normal 7.6-11.0 [facility] Comment on above: Performed By: #### L 500.2500, L100.0100 #### [facility] [address] [place], [address] Chloride [Moles/Vol] 105 mmol/L Normal 98-108 [facility] Comment on above: Performed By: #### L 500.2500, L100.0100 #### [facility] [address] [place], [address] CO2 [Moles/Vol] 26.0 mmol/L Normal 21.0-32.0 [facility] Comment on above: Performed By: #### L 500.2500, L100.0100 #### [facility] [address] [place], [address] Creatinine [Mass/Vol] 0.78 mg/dL Normal 0.70-1.20 [facility] Comment on above: Performed By: #### L 500.2500, L100.0100 #### [facility] [address] [place], [address] ECRCL 68.88 ml/min Normal 50-250 [facility] Comment on above: Performed By: #### L 500.2500, L100.0100 #### [facility] [address] [place], [address] GAP 10 Normal 5-15 [facility] Comment on above: Performed By: #### L 500.2500, L100.0100 #### [facility] [address] [place], [address] GFR/1.73 sq M.predicted among non-blacks MDRD (S/P/Bld) [Vol rate/Area] 89 mL/min/{1.73_m2} Normal >60 [facility] Comment on above: Result Comment: mL/m in/1.73m2 CKD-EPI Creatinine Equation (2020) Performed By: #### L 500.2500, L100.0100 #### [facility] [address] [place], [address] Glucose [Mass/Vol] 94 mg/dL Normal 70-99 [facility] Comment on above: Performed By: #### L 500.2500, L100.0100 #### [facility] [address] [place], [address] Potassium [Moles/Vol] 3.5 mmol/L Normal 3.3-5.1 [facility] Comment on above: Performed By: #### L 500.2500, L100.0100 #### [facility] [address] [place], [address] Sodium [Moles/Vol] 140 mmol/L Normal 133-145 [facility] Comment on above: Performed By: #### L 500.2500, L100.0100 #### [facility] [address] [place], [address] Urea nitrogen [Mass/Vol] 16 mg/dL Normal 4-19 [facility] Comment on above: Performed By: #### L 500.2500, L100.0100 #### [facility] [address] [place], [address] CBC W/Diff, Automatedon 07-2 0-2024 Absolute Lymph 1.41 X10 3/uL Normal 0.83-4.51 [facility] Comment on above: Performed By: #### L 500.2500, L100.0100 #### [facility] [address] [place], [address] Absolute Neut 1.7 X10 3/uL Low 2.0-7.7 [facility] Comment on above: Performed By: #### L 500.2500, L100.0100 #### [facility] [address] [place], [address] Basophils/100 WBC (Bld) 0.8 % Normal 0-1 [facility] Comment on above: Performed By: #### L 500.2500, L100.0100 #### [facility] [address] [place], [address] Eosinophils/100 WBC (Bld) 1.4 % Normal 0-5 [facility] Comment on above: Performed By: #### L 500.2500, L100.0100 #### [facility] [address] [place], [address] Erythrocyte distribution width (RBC) [Ratio] 12.2 % Normal 11.6-14.6 [facility] Comment on above: Performed By: #### L 500.2500, L100.0100 #### [facility] [address] [place], [address] Hematocrit (Bld) [Volume fraction] 35.0 % Low 40-54 [facility] Comment on above: Performed By: #### L 500.2500, L100.0100 #### [facility] [address] [place], [address] Hemoglobin (Bld) [Mass/Vol] 11.6 g/dL Low 13.0-16.5 [facility] Comment on above: Performed By: #### L 500.2500, L100.0100 #### [facility] [address] [place], [address] IG% 0.300 Normal 0.0-0.9 [facility] Comment on above: Result Comment: IG% - Immature Granulocytes (promyelocytes, myelocytes and metamyelocytes) > 1% indicates that a LEFT SHIFT is Present. Performed By: #### L 500.2500, L100.0100 #### [facility] [address] [place], [address] Lymphocytes/100 WBC (Bld) 39.9 % Normal 19-41 [facility] Comment on above: Performed By: #### L 500.2500, L100.0100 #### [facility] [address] [place], [address] MCH (RBC) [Entitic mass] 31.5 pg Normal 27.0-32.0 [facility] Comment on above: Performed By: #### L 500.2500, L100.0100 #### [facility] [address] [place], [address] MCHC (RBC) [Mass/Vol] 33.1 g/dL Normal 32-36 [facility] Comment on above: Performed By: #### L 500.2500, L100.0100 #### [facility] [address] [place], [address] MCV (RBC) [Entitic vol] 95.1 fL High 80-94 [facility] Comment on above: Performed By: #### L 500.2500, L100.0100 #### [facility] [address] [place], [address] Monocytes/100 WBC (Bld) 9.9 % Normal 0-10 [facility] Comment on above: Performed By: #### L 500.2500, L100.0100 #### [facility] [address] [place], [address] Neutrophils/100 WBC (Bld) 47.7 % Normal 47-70 [facility] Comment on above: Performed By: #### L 500.2500, L100.0100 #### [facility] [address] [place], [address] Nucleated RBC (Bld) [#/Vol] 0 10*3/uL Normal 0-5 [facility] Comment on above: Performed By: #### L 500.2500, L100.0100 #### [facility] [address] [place], [address] Platelet mean volume (Bld) [Entitic vol] 8.9 fL Normal 6.2-12.0 [facility] Comment on above: Performed By: #### L 500.2500, L100.0100 #### [facility] [address] [place], [address] Platelets (Bld) [#/Vol] 167 10*3/uL Normal 150-450 [facility] Comment on above: Performed By: #### L 500.2500, L100.0100 #### [facility] [address] [place], [address] RBC (Bld) [#/Vol] 3.68 10*6/uL Low 4.6-6.2 [facility] Comment on above: Performed By: #### L 500.2500, L100.0100 #### [facility] [address] [place], [address] RDW SD 42.5 fl Normal 35.1-43.9 [facility] Comment on above: Performed By: #### L 500.2500, L100.0100 #### [facility] [address] [place], [address] WBC (Bld) [#/Vol] 3.5 10*3/uL Low 4.4-11.0 [facility] Comment on above: Performed By: #### L 500.2500, L100.0100 #### [facility] [address] [place], [address] Magnesiumon 04-14-2025 Magnesium [Mass/Vol] 1.9 mg/dL Normal 1.5-2.2 [facility] Comment on above: Performed By: #### L 500.2500, L100.0100 #### [facility] [address] [place], [address] Magnesium measurement (mass/ volume)Ordered By: Elias Kaur on 04-14-2025 Magnesium (Unsp spec) [Mass/Vol] 1.9 mg/dL 1.5-2.2 [facility] Phosphoruson 04-14-2025 Phosphate [Mass/Vol] 3.0 mg/dL Normal 2.7-4.5 [facility] Comment on above: Performed By: #### L 500.2500, L100.0100 #### [facility] [address] [place], [address] Urine Cultureon 04-14-2025 URC Escherichia coli [place] Count >100,000 Escherichia coli: REACTION Ampicillin Islt CONOR >=32 Ampicillin+Sulbac Islt CONOR 16 I Cefepime Islt CONOR <=0.12 S cefTRIAXone Islt CONOR <=0.25 S Ciprofloxacin Islt CONOR <=0.06 S B-Lactamase Extended Susc Islt NEG Gentamicin Islt CONOR <=1 S levoFLOXacin Islt CONOR <=0.12 S Meropenem Islt CONOR <=0.25 S Nitrofurantoin Islt CONOR 64 I Pip+Tazo Islt CONOR 8 S TMP SMX Islt CONOR <=20 S Normal [facility] Comment on above: Performed By: #### L 500.2500, L100.0100 #### [facility] [address] [place], [address] Basic Metabolic Profile (BMP )on 04-13-2025 BUN/CRE 20.0 RATIO Normal 10-20 [facility] Comment on above: Performed By: #### L 100.0100, L503.0106, L501.9520, L500.2500 #### [facility] [address] [place], [address] Calcium [Mass/Vol] 8.7 mg/dL Normal 7.6-11.0 [facility] Comment on above: Performed By: #### L 100.0100, L503.0106, L501.9520, L500.2500 #### [facility] [address] [place], [address] Chloride [Moles/Vol] 106 mmol/L Normal 98-108 [facility] Comment on above: Performed By: #### L 100.0100, L503.0106, L501.9520, L500.2500 #### [facility] [address] [place], [address] CO2 [Moles/Vol] 25.2 mmol/L Normal 21.0-32.0 [facility] Comment on above: Performed By: #### L 100.0100, L503.0106, L501.9520, L500.2500 #### [facility] [address] [place], [address] Creatinine [Mass/Vol] 0.78 mg/dL Normal 0.70-1.20 [facility] Comment on above: Performed By: #### L 100.0100, L503.0106, L501.9520, L500.2500 #### [facility] [address] [place], [address] ECRCL 68.88 ml/min Normal 50-250 [facility] Comment on above: Performed By: #### L 100.0100, L503.0106, L501.9520, L500.2500 #### [facility] [address] [place], [address] GAP 8 Normal 5-15 [facility] Comment on above: Performed By: #### L 100.0100, L503.0106, L501.9520, L500.2500 #### [facility] [address] [place], [address] GFR/1.73 sq M.predicted among non-blacks MDRD (S/P/Bld) [Vol rate/Area] 89 mL/min/{1.73_m2} Normal >60 [facility] Comment on above: Result Comment: mL/m in/1.73m2 CKD-EPI Creatinine Equation (2020) Performed By: #### L 100.0100, L503.0106, L501.9520, L500.2500 #### [facility] [address] [place], [address] Glucose [Mass/Vol] 89 mg/dL Normal 70-99 [facility] Comment on above: Performed By: #### L 100.0100, L503.0106, L501.9520, L500.2500 #### [facility] [address] [place], [address] Potassium [Moles/Vol] 3.4 mmol/L Normal 3.3-5.1 [facility] Comment on above: Performed By: #### L 100.0100, L503.0106, L501.9520, L500.2500 #### [facility] [address] [place], [address] Sodium [Moles/Vol] 139 mmol/L Normal 133-145 [facility] Comment on above: Performed By: #### L 100.0100, L503.0106, L501.9520, L500.2500 #### [facility] [address] [place], [address] Urea nitrogen [Mass/Vol] 16 mg/dL Normal 4-19 [facility] Comment on above: Performed By: #### L 100.0100, L503.0106, L501.9520, L500.2500 #### [facility] [address] [place], [address] CBC W/Diff, Automatedon 07-1 Absolute Lymph 1.48 X10 3/uL Normal 0.83-4.51 [facility] Comment on above: Performed By: #### L 100.0100, L503.0106, L501.9520, L500.2500 #### [facility] [address] [place], [address] Absolute Neut 2.1 X10 3/uL Normal 2.0-7.7 [facility] Comment on above: Performed By: #### L 100.0100, L503.0106, L501.9520, L500.2500 #### [facility] [address] [place], [address] Basophils/100 WBC (Bld) 1.0 % Normal 0-1 [facility] Comment on above: Performed By: #### L 100.0100, L503.0106, L501.9520, L500.2500 #### [facility] [address] [place], [address] Eosinophils/100 WBC (Bld) 1.4 % Normal 0-5 [facility] Comment on above: Performed By: #### L 100.0100, L503.0106, L501.9520, L500.2500 #### [facility] [address] [place], [address] Erythrocyte distribution width (RBC) [Ratio] 12.4 % Normal 11.6-14.6 [facility] Comment on above: Performed By: #### L 100.0100, L503.0106, L501.9520, L500.2500 #### [facility] [address] [place], [address] Hematocrit (Bld) [Volume fraction] 32.6 % Low 40-54 [facility] Comment on above: Performed By: #### L 100.0100, L503.0106, L501.9520, L500.2500 #### [facility] [address] [place], [address] Hemoglobin (Bld) [Mass/Vol] 10.8 g/dL Low 13.0-16.5 [facility] Comment on above: Performed By: #### L 100.0100, L503.0106, L501.9520, L500.2500 #### [facility] [address] [place], [address] IG% 0.200 Normal 0.0-0.9 [facility] Comment on above: Result Comment: IG% - Immature Granulocytes (promyelocytes, myelocytes and metamyelocytes) > 1% indicates that a LEFT SHIFT is Present. Performed By: #### L 100.0100, L503.0106, L501.9520, L500.2500 #### [facility] [address], [address] Lymphocytes/100 WBC (Bld) 35.5 % Normal 19-41 [facility] Comment on above: Performed By: #### L 100.0100, L503.0106, L501.9520, L500.2500 #### [facility] [address] [place], [address] MCH (RBC) [Entitic mass] 31.4 pg Normal 27.0-32.0 [facility] Comment on above: Performed By: #### L 100.0100, L503.0106, L501.9520, L500.2500 #### [facility] [address] [place], [address] MCHC (RBC) [Mass/Vol] 33.1 g/dL Normal 32-36 [facility] Comment on above: Performed By: #### L 100.0100, L503.0106, L501.9520, L500.2500 #### [facility] [address] [place], [address] MCV (RBC) [Entitic vol] 94.8 fL High 80-94 [facility] Comment on above: Performed By: #### L 100.0100, L503.0106, L501.9520, L500.2500 #### [facility] [address] [place], [address] Monocytes/100 WBC (Bld) 10.6 % High 0-10 [facility] Comment on above: Performed By: #### L 100.0100, L503.0106, L501.9520, L500.2500 #### [facility] [address] [place], [address] Neutrophils/100 WBC (Bld) 51.3 % Normal 47-70 [facility] Comment on above: Performed By: #### L 100.0100, L503.0106, L501.9520, L500.2500 #### [facility] [address] [place], [address] Nucleated RBC (Bld) [#/Vol] 0 10*3/uL Normal 0-5 [facility] Comment on above: Performed By: #### L 100.0100, L503.0106, L501.9520, L500.2500 #### [facility] [address] [place], [address] Platelet mean volume (Bld) [Entitic vol] 9.2 fL Normal 6.2-12.0 [facility] Comment on above: Performed By: #### L 100.0100, L503.0106, L501.9520, L500.2500 #### [facility] [address] [place], [address] Platelets (Bld) [#/Vol] 159 10*3/uL Normal 150-450 [facility] Comment on above: Performed By: #### L 100.0100, L503.0106, L501.9520, L500.2500 #### [facility] [address] [place], [address] RBC (Bld) [#/Vol] 3.44 10*6/uL Low 4.6-6.2 [facility] Comment on above: Performed By: #### L 100.0100, L503.0106, L501.9520, L500.2500 #### [facility] [address] [place], [address] RDW SD 42.9 fl Normal 35.1-43.9 [facility] Comment on above: Performed By: #### L 100.0100, L503.0106, L501.9520, L500.2500 #### [facility] [address] [place], [address] WBC (Bld) [#/Vol] 4.2 10*3/uL Low 4.4-11.0 [facility] Comment on above: Performed By: #### L 100.0100, L503.0106, L501.9520, L500.2500 #### [facility] [address] [place], [address] TSH DL <= 0.005 mIU/L QnOrde red By: Monique Agarwal on 04-13-2025 TSH Qn 2.590 uIU/mL 0.300-4.200 [facility] Thyroid Stim Hormone (TSH)on 04-13-2025 TSH 2.590 uIU/mL Normal 0.300-4.200 [facility] Comment on above: Performed By: #### L 100.0100, L503.0106, L501.9520, L500.2500 #### [facility] [address] [place], [address] Vitamin B12on 04-13-2025 Cobalamin (Vitamin B12) [Mass/Vol] 796 pg/mL Normal 180-914 [facility] Comment on above: Performed By: #### L 100.0100, L503.0106, L501.9520, L500.2500 #### [facility] [address] [place], [address] Vitamin B12 ser/plasOrdered By: Monique Agarwal on 04-13-2025 Cobalamin (Vitamin B12) [Mass/Vol] 796 pg/mL 180-914 [facility] Absolute lymphocyte countOrd ered By: Marlo Echevarria on 04-12-2025 Lymphocytes Auto (Unsp spec) [#/Vol] 1.53 10*3/uL 0.83-4.51 [facility] Absolute neutrophil countOrd ered By: Marlo Echevarria on 04-12-2025 Neutrophils (Bld) [#/Vol] 2.5 10*3/uL 2.0-7.7 [facility] Anion gap in Serum or Plasma Ordered By: [facility] on 04-12-2025 Anion gap [Moles/Vol] 11 mmol/L 5-15 [facility] Automated lymphocyte count a s percentage of total leukocytesOrdered By: Marlo Echevarria on 04-12-2025 Lymphocytes/100 WBC Auto (Unsp spec) 33.8 % 19-41 [facility] BUN/creatinine ratioOrdered By: Marlo Echevarria on 04-12-2025 Urea nitrogen/Creatinine [Mass ratio] 22.1 mg/mg High 10-20 [facility] Basic Metabolic Profile (BMP )on 04-12-2025 BUN/CRE 22.1 RATIO High - [facility] Comment on above: Performed By: #### L 500.2500, L100.0100 #### [facility] [address] [place], [address] Calcium [Mass/Vol] 9.4 mg/dL Normal 7.6-11.0 [facility] Comment on above: Performed By: #### L 500.2500, L100.0100 #### [facility] [address] [place], [address] Chloride [Moles/Vol] 102 mmol/L Normal 98-108 [facility] Comment on above: Performed By: #### L 500.2500, L100.0100 #### [facility] [address] [place], [address] CO2 [Moles/Vol] 26.1 mmol/L Normal 21.0-32.0 [facility] Comment on above: Performed By: #### L 500.2500, L100.0100 #### [facility] [address] [place], [address] Creatinine [Mass/Vol] 0.82 mg/dL Normal 0.70-1.20 [facility] Comment on above: Performed By: #### L 500.2500, L100.0100 #### [facility] [address] [place], [address] ECRCL 67.20 ml/min Normal 50-250 [facility] Comment on above: Performed By: #### L 500.2500, L100.0100 #### [facility] [address] [place], [address] GAP 11 Normal 5-15 [facility] Comment on above: Performed By: #### L 500.2500, L100.0100 #### [facility] [address] [place], [address] GFR/1.73 sq M.predicted among non-blacks MDRD (S/P/Bld) [Vol rate/Area] 88 mL/min/{1.73_m2} Normal >60 [facility] Comment on above: Result Comment: mL/m in/1.73m2 CKD-EPI Creatinine Equation (2020) Performed By: #### L 500.2500, L100.0100 #### [facility] [address] [place], [address] Glucose [Mass/Vol] 100 mg/dL High 70-99 [facility] Comment on above: Performed By: #### L 500.2500, L100.0100 #### [facility] [address] [place], [address] Potassium [Moles/Vol] 4.0 mmol/L Normal 3.3-5.1 [facility] Comment on above: Result Comment: Hemo lysis present, Results??could be affected. ?? Performed By: #### L 500.2500, L100.0100 #### [facility] [address] [place], [address] Sodium [Moles/Vol] 139 mmol/L Normal 133-145 [facility] Comment on above: Performed By: #### L 500.2500, L100.0100 #### [facility] [address] [place], [address] Urea nitrogen [Mass/Vol] 18 mg/dL Normal 4-19 [facility] Comment on above: Performed By: #### L 500.2500, L100.0100 #### [facility] [address] [place], [address] Basophil percentageOrdered B y: Remus Swathi on 04-12-2025 Basophils/100 WBC (Bld) 0.7 % 0-1 [facility] Bilirubin Test strip Ql (U)O rdered By: Remus Ungelia on 04-12-2025 Bilirubin Ql (U) Negative Negative [facility] CBC W/Diff, Automatedon 03-26 Absolute Lymph 1.53 X10 3/uL Normal 0.83-4.51 [facility] Comment on above: Performed By: #### L 500.2500, L100.0100 #### [facility] [address] [place], [address] Absolute Neut 2.5 X10 3/uL Normal 2.0-7.7 [facility] Comment on above: Performed By: #### L 500.2500, L100.0100 #### [facility] [address] [place], [address] Basophils/100 WBC (Bld) 0.7 % Normal 0-1 [facility] Comment on above: Performed By: #### L 500.2500, L100.0100 #### [facility] [address] [place], [address] Eosinophils/100 WBC (Bld) 0.9 % Normal 0-5 [facility] Comment on above: Performed By: #### L 500.2500, L100.0100 #### [facility] [address] [place], [address] Erythrocyte distribution width (RBC) [Ratio] 12.6 % Normal 11.6-14.6 [facility] Comment on above: Performed By: #### L 500.2500, L100.0100 #### [facility] [address] [place], [address] Hematocrit (Bld) [Volume fraction] 39.7 % Low 40-54 [facility] Comment on above: Performed By: #### L 500.2500, L100.0100 #### [facility] [address] [place], [address] Hemoglobin (Bld) [Mass/Vol] 13.1 g/dL Normal 13.0-16.5 [facility] Comment on above: Performed By: #### L 500.2500, L100.0100 #### [facility] [address] [place], [address] IG% 0.200 Normal 0.0-0.9 [facility] Comment on above: Result Comment: IG% - Immature Granulocytes (promyelocytes, myelocytes and metamyelocytes) > 1% indicates that a LEFT SHIFT is Present. Performed By: #### L 500.2500, L100.0100 #### [facility] [address] [place], [address] Lymphocytes/100 WBC (Bld) 33.8 % Normal 19-41 [facility] Comment on above: Performed By: #### L 500.2500, L100.0100 #### [facility] [address] [place], [address] MCH (RBC) [Entitic mass] 32.1 pg High 27.0-32.0 [facility] Comment on above: Performed By: #### L 500.2500, L100.0100 #### [facility] [address] [place], [address] MCHC (RBC) [Mass/Vol] 33.0 g/dL Normal 32-36 [facility] Comment on above: Performed By: #### L 500.2500, L100.0100 #### [facility] [address] [place], [address] MCV (RBC) [Entitic vol] 97.3 fL High 80-94 [facility] Comment on above: Performed By: #### L 500.2500, L100.0100 #### [facility] [address] [place], [address] Monocytes/100 WBC (Bld) 9.5 % Normal 0-10 [facility] Comment on above: Performed By: #### L 500.2500, L100.0100 #### [facility] [address] [place], [address] Neutrophils/100 WBC (Bld) 54.9 % Normal 47-70 [facility] Comment on above: Performed By: #### L 500.2500, L100.0100 #### [facility] [address] [place], [address] Nucleated RBC (Bld) [#/Vol] 0 10*3/uL Normal 0-5 [facility] Comment on above: Performed By: #### L 500.2500, L100.0100 #### [facility] [address] [place], [address] Platelet mean volume (Bld) [Entitic vol] 9.3 fL Normal 6.2-12.0 [facility] Comment on above: Performed By: #### L 500.2500, L100.0100 #### [facility] [address] [place], [address] Platelets (Bld) [#/Vol] 169 10*3/uL Normal 150-450 [facility] Comment on above: Performed By: #### L 500.2500, L100.0100 #### [facility] [address] [place], [address] RBC (Bld) [#/Vol] 4.08 10*6/uL Low 4.6-6.2 [facility] Comment on above: Performed By: #### L 500.2500, L100.0100 #### [facility] [address] [place], [address] RDW SD 45.0 fl High 35.1-43.9 [facility] Comment on above: Performed By: #### L 500.2500, L100.0100 #### [facility] [address] [place], [address] WBC (Bld) [#/Vol] 4.5 10*3/uL Normal 4.4-11.0 [facility] Comment on above: Performed By: #### L 500.2500, L100.0100 #### [facility] [address], [address] Carbon dioxide, total [Moles /volume] in Central venous bloodOrdered By: Marlo Echevarria on 04-12-2025 CO2 [Moles/Vol] 26.1 mmol/L 21.0-32.0 [facility] Chest 1 View (Portable)on Chest 1 View (Portable) [facility] [address] [place] [address] Chest 1 View (Portable) MR#: [id number] Acct: [id number] Name: JAVIER BOND Rep #: [id number] : 1940 M 84 From: Petr Jaramillo MD PCP: Dr. Francisco Bahena MD Status: PRE ER Study: Chest 1 View (Portable) Date of Exam: 04/12/25 Exam# [id number] Ordering Dr: Marlo Echevarria DO PROCEDURE: CHEST 1 VIEW (PORTABLE) 04/12/2025 REASON FOR EXAM: WEAKNESS TECHNIQUE: Frontal view of the chest. COMPARISON: Portable chest, 09/24/2023 FINDINGS: The lungs are clear. The heart size is normal. There is calcific vascular disease of the thoracic aorta. There is a small hiatal hernia. 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 RAD/Chest 1 View (Portable) IMPRESSION: 1. No evidence of acute cardiopulmonary pathology. 2. Small hiatal hernia. Reading Location: [place] [address] CC: Dr. Francisco Bahena MD; Dr. Marlo Echevarria DO 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: Signed Normal [facility] Chloride assayOrdered By: Elana Echevarria on 04-12-2025 Chloride [Moles/Vol] 102 mmol/L 98-108 [facility] Emergency Department Summary on 04-12-2025 Emergency Department Summary [facility] Medical Records Department [address] [place] [address] [id number] Emergency Department Summary 04/12/25 MR#: [id number] Acct: [id number] Name: JAVIER BOND Rep #: [id number] : 1940 84 From: Marlo Echevarria DO PCP: Dr. Francisco Bahena MD Status:ADM IN Location: [place] [address] HPI History of Present Illness Chief Complaint: General Illness Detail of Chief Complaint: Weakness and failure to thrive Informant: patient and spouse/S.O. Narrative Narrative: Patient presents to the emergency department complaint generalized weakness for at least several weakness. Patient states that he is fallen 3 times in the last 2 months. Patient saw his back surgeon who did his initial spinal fusion a month ago. He was told he would need another surgery and it was scheduled for April. Yesterday patient decided he did not want to go through another surgery. He states that at times he just feels like his legs are getting give out. He has not fallen recently. Patient feels that he needs a alf placement and called his primary care physician who advised him to come to the emergency department to get admitted for placement. Patient denies fever cough or recent illness. Denies chest pain or shortness of breath. Denies abdominal pain. Denies vomiting or diarrhea. [facility] Medical History History of ESBL E. coli infection Anxiety Depression Kidney stones Kidney disease Former smoker Anxiety and depression HLD (hyperlipidemia) CKD (chronic kidney disease), stage II Dementia Left inguinal hernia Groin pain Inguinal hernia bilateral, non-recurrent Right inguinal hernia History of kidney stones History of hiatal hernia Abdominal pain BPH (benign prostatic hyperplasia) Arthritis History of back problems Hypertension Home Medications ???Medication ???Instructions ???Recorded ???Last Taken ???Type acetaminophen 500 mg tablet 1,000 mg PO PRN Pain 04/03/17 Unkn own History doxycycline hyclate 20 mg tablet 20 mg PO BID infection 03/13/19 History metronidazole 0.75 % topical cream 1 applic topical DAILY skin heal 07/16/19 01/07/25 History aspirin 81 mg tablet,delayed 81 mg PO [facility] heart health 01/28/21 01/07/25 History release (Rika Low Dose Aspirin) multivitamin 1 tab PO DAILY vitamin 05/18/21 History pantoprazole 40 mg tablet,delayed 40 mg PO DAILY reflux 05/03/22 History release d-mannose 1 ea PO DAILY 09/24/23 01/07/25 Hi story dupilumab 300 mg/2 mL subcutaneous 300 mg subcut .COMPLEX skin heal 09/24/23 Unknown History pen injector (Dupixent) lisinopril 5 mg tablet 5 mg PO DAILY blood pressure 09/24 Unknown History Held on 04/12/25. Instructions: Ordered BACLOFEN SUPPOSITORY 1 supp OTHER DAILY CONSITPATION Unknown History Lactobacillus acidophilus 10 80 mmu cells PO DAILY 01/08/25 History billion cell capsule (NewFlora) donepezil 5 mg tablet 10 mg PO DAILY 01/08/25 01/07/25 H istory furosemide 20 mg tablet 20 mg PO DAILY 01/08/25 01/07/25 H istory guaifenesin 600 mg tablet, 600 mg PO BID 01/08/25 01/07/25 Hi story extended release 12 hr (Mucinex) melatonin 5 mg tablet 5 mg PO QHS 01/08/25 01/07/25 Hist ory memantine 10 mg tablet 10 mg PO BID 01/08/25 01/07/25 His tory methenamine hippurate 1 gram tablet 1 g PO BID 01/08/25 01/07/25 Hi story plecanatide 3 mg tablet (Trulance) 3 mg PO DAILY 01/08/25 Unknown H istory Held on 01/29/25. Instructions: reports being on hold 12/13/2024 sertraline 25 mg tablet 25 mg PO DINNER 01/08/25 01/07/25 History trazodone 100 mg tablet 100 mg PO QHS 01/08/25 01/07/25 Hi story triamcinolone acetonide 1 applic topical DAILY PRN itching 01/08/25 01/07/25 History fosfomycin tromethamine 3 gram 1 packet PO QODAY 3 doses #1 ea Unknown Rx oral packet hydrochlorothiazide 12.5 mg tablet 12.5 mg PO DAILY 01/29/25 Unknow n History sulfamethoxazole 800 1 tab PO BID 01/29/25 Unknown Hist ory mg-trimethoprim 160 mg tablet ipratropium bromide 21 mcg (0.03 intranasal 04/12/25 Unknown Histor y %) nasal spray polyethylene glycol 3350 17 4 g PO DAILY 04/12/25 Unknown Hist ory gram/dose oral powder (Miralax) sertraline 25 mg tablet (Zoloft) 25 mg PO LUNCH 04/12/25 Unknown Hi story Allergy/AdvReac Type Severity Reaction Status Date / Time Iodinated Contrast Media Allergy Hives Verified 04/12/25 14:35 (CONTRASTS) azelaic acid (From Finacea) AdvReac Rash Verified 04/12/25 14:35 levofloxacin AdvReac Rash Verified 04/12/25 14:35 meloxicam (From Mobic) AdvReac Nausea Verified 04/12/25 14:35 misoprostol (From Cytotec) AdvReac Nausea Verified 04/12/25 14:35 nabumetone (From Relafen) AdvR (more content not included)... Normal [facility] Eosinophil percentageOrdered By: Marlo Echevarria on 04-12-2025 Eosinophils/100 WBC (Bld) 0.9 % 0-5 [facility] Erythrocyte distribution wid th ratioOrdered By: Rem Swathi on 04-12-2025 Erythrocyte distribution width (RBC) [Ratio] 12.6 % 11.6-14.6 [facility] Erythrocyte distribution wid th standard deviationOrdered By: Remus Ungelia on 04-12-2025 Erythrocyte distribution width (RBC) [Ratio] 45.0 fl High 35.1-43.9 [facility] Glomerular filtration rate ( GFR) estimation/1.73 sq m using serum, plasma, or whole bOrdered By: Remus Swathi on 04-12-2025 GFR/1.73 sq M.predicted among non-blacks MDRD (S/P/Bld) [Vol rate/Area] 88 mL/min/{1.73_m2} >60 [facility] Comment on above: mL/min/1.73m2 CKD-EP I Creatinine Equation (2020) H AND P Exam - [facility] 04-12-2025 H&P Exam - Hospitalist [facility] Medical Records Department [address] [place] [address] H P Exam - Hospitalist 04/12/25 1705 MR#: [id number] Acct: [id number] Name: JAVIER BOND Rep #: [id number] : 1940 84 From: Monique Agarwal MD PCP: Dr. Francisco Bahena MD Status:ADM IN Location: [facility] [id number] HPI - General General Date of Admission: 04/12/25 Date of Service: 04/12/25 Chief Complaint: Weakness and falls HPI Narrative JAVIER BOND, is a 84-year-old male history of BPH, GERD, dementia, hypertension, anxiety and depression who presented [facility] ED 04/12/2025 with weakness and failure to thrive. He has had increased weakness for several weeks with 3 falls in the last 2 months. He saw his back surgeon who did his spinal fusion a month ago and was told he needs to undergo another surgery for April but he is not yet sure if he wants to undergo another surgery. Due to his weakness and failure to thrive he is concerned he needs alf placement and his primary care physician advised to go to the ED for admission for placement. In the ED temp 98.2, heart rate 64 blood pressure 145/43. Respiratory rate 16 with pulse ox 100% on room air. CBC with white blood cell count 4.5 and hemoglobin 13.1. BMP with no acute electrolyte abnormalities and a creatinine of 0.82. UA with 500 leuk esterase, 25-50 white blood cells and 3+ bacteria. Chest x-ray no acute process. Patient given Rocephin. Hospitalist contacted for admission for possible placement. Patient evaluated at bedside with family member present. He endorses chronic back pain for years with history of previous spinal fusion and notes that he has decreased sensation and weakness in both of his legs right greater than left, he said he will attempt to take a step and will not be able to feel where he is stepping with his right leg and this is caused several falls. Confirmed multiple times with patient and family member that patient has had the symptoms at this current severity when he saw his spinal surgeon a month ago and that plan was for spinal fusion in April. Patient has chronic constipation, does not necessarily report changes in urination acutely but does have chronic history of urinary tract infections. Denies any nausea or vomiting, has chronic nasal drainage that caused him to frequently have to spit out phlegm but denies any acute change. Again patient confirmed that the sensation changes and weakness at this severity have been present since he saw his spinal surgeon and he is scheduled for surgery but he does not feel like he can care for self at home anymore [facility] Medical History History of ESBL E. coli infection Anxiety Depression Kidney stones Kidney disease Former smoker Anxiety and depression HLD (hyperlipidemia) CKD (chronic kidney disease), stage II Dementia Left inguinal hernia Groin pain Inguinal hernia bilateral, non-recurrent Right inguinal hernia History of kidney stones History of hiatal hernia Abdominal pain BPH (benign prostatic hyperplasia) Arthritis History of back problems Hypertension Home Medications ???Medication ???Instructions ???Recorded ???Last Taken ???Type acetaminophen 500 mg tablet 1,000 mg PO PRN Pain 04/03/17 Unkn own History doxycycline hyclate 20 mg tablet 20 mg PO BID infection 03/13/19 History metronidazole 0.75 % topical cream 1 applic topical DAILY skin heal th 07/16/19 01/07/25 History aspirin 81 mg tablet,delayed 81 mg PO QHS heart health 01/28/21 01/07/25 History release (Rika Low Dose Aspirin) multivitamin 1 tab PO DAILY vitamin 05/18/21 History pantoprazole 40 mg tablet,delayed 40 mg PO DAILY reflux 05/03/22 History release d-mannose 1 ea PO DAILY 09/24/23 01/07/25 Hi story dupilumab 300 mg/2 mL subcutaneous 300 mg subcut .COMPLEX skin heal th 09/24/23 Unknown History pen injector (Dupixent) lisinopril 5 mg tablet 5 mg PO DAILY blood pressure 09/24 Unknown History Held on 04/12/25. Instructions: Ordered BACLOFEN SUPPOSITORY 1 supp OTHER DAILY CONSITPATION Unknown History Lactobacillus acidophilus 10 80 mmu cells PO DAILY 01/08/25 History billion cell capsule (NewFlora) donepezil 5 mg tablet 10 mg PO DAILY 01/08/25 01/07/25 H istory furosemide 20 mg tablet 20 mg PO DAILY 01/08/25 01/07/25 H istory guaifenesin 600 mg tablet, 600 mg PO BID 01/08/25 01/07/25 Hi story extended release 12 hr (Mucinex) melatonin 5 mg tablet 5 mg PO QHS 01/08/25 01/07/25 Hist ory memantine 10 mg tablet 10 mg PO BID 01/08/25 01/07/25 His tory methenamine hippurate 1 gram tablet 1 g PO BID 01/08/25 01/07/25 Hi story plecanatide 3 mg tablet (Trulance) 3 mg PO DAILY 01/08/25 Unknown H istory Held on 01/29 (more content not included)... Normal [facility] Hematocrit Auto (Bld) [Volum e fraction]Ordered By: Marlo Echevarria on 04-12-2025 Hematocrit (Bld) [Volume fraction] 39.7 % Low 40-54 [facility] Hemoglobin measurementOrdere d By: Marlo Echevarria on 04-12-2025 Hemoglobin (Bld) [Mass/Vol] 13.1 g/dL 13.0-16.5 [facility] Immature granulocytes/100 WB C Auto (Bld)Ordered By: Marlo Echevarria on 04-12-2025 Immature granulocytes/100 WBC (Bld) 0.200 % 0.0-0.9 [facility] Comment on above: IG% - Immature Granu locytes (promyelocytes, myelocytes and metamyelocytes) > 1% indicates that a LEFT SHIFT is Present. Ketones Test strip Ql (U)Ord ered By: Marlo Echevarria on 04-12-2025 Ketones Ql (U) Negative Negative [facility] MCV (mean corpuscular volume ) determinationOrdered By: Marlo Echevarria on 04-12-2025 MCV (RBC) [Entitic vol] 97.3 fL High 80-94 [facility] Mean corpuscular hemoglobin (MCH) determinationOrdered By: Marlo Echevarria on 04-12-2025 MCH (RBC) [Entitic mass] 32.1 pg High 27.0-32.0 [facility] Mean corpuscular hemoglobin concentration (MCHC) determinationOrdered By: Marlo Echevarria on 04-12-2025 MCHC (RBC) [Mass/Vol] 33.0 g/dL 32-36 [facility] Mean platelet volume determi nationOrdered By: Marlo Echevarria on 04-12-2025 Platelet mean volume (Bld) [Entitic vol] 9.3 fL 6.2-12.0 [facility] Microscopic analysis of urin e for red blood cells (RBC)Ordered By: Marlo Echevarria on 04-12-2025 Microscopic analysis of urine for red blood cells (RBC) 0-5 SEEN /hpf 0-5 [facility] Monocyte percentageOrdered B y: Marlo Echevarria on 04-12-2025 Monocytes/100 WBC (Bld) 9.5 % 0-10 [facility] Mucus LM Ql (Urine sed)Order ed By: Marlo Echevarria on 04-12-2025 Mucus Ql (Urine sed) 0 SEEN /hpf [facility] Neutrophil percentageOrdered By: Marlo Echevarria on 04-12-2025 Neutrophils/100 WBC (Bld) 54.9 % 47-70 [facility] Nitrite Test strip Ql (U)Ord ered By: Marlo Echevarria on 04-12-2025 Nitrite Ql (U) Negative Negative [facility] Nucleated red blood cell per centageOrdered By: Marlo Echevarria on 04-12-2025 Nucleated RBC/100 WBC (Bld) [Ratio] 0 % 0-5 [facility] Platelet countOrdered By: Elana Echevarria on 04-12-2025 Platelets (Bld) [#/Vol] 169 10*3/uL 150-450 [facility] Potassium measurement (mass/ volume)Ordered By: Marlo Echevarria on 04-12-2025 Potassium (Unsp spec) [Mass/Vol] 4.0 mmol/L 3.3-5.1 [facility] Comment on above: Hemolysis present, R esults could be affected. Protein Test strip Ql (U)Ord ered By: Marlo Echevarria on 04-12-2025 Protein Ql (U) 15 mg/dl High Negative [facility] RBC Auto (Bld) [#/Vol]Ordere d By: Marlo Echevarria on 04-12-2025 RBC (Bld) [#/Vol] 4.08 10*6/uL Low 4.6-6.2 [facility] Serum creatinine measurement (mass/volume)Ordered By: Marlo Echevarria on 04-12-2025 Creatinine [Mass/Vol] 0.82 mg/dL 0.70-1.20 [facility] Serum glucose measurement (m ass/volume)Ordered By: Marlo Echevarria on 04-12-2025 Glucose [Mass/Vol] 100 mg/dL High 70-99 [facility] Serum or plasma calcium shon urement (mass/volume)Ordered By: Marlo Echevarria on 04-12-2025 Calcium [Mass/Vol] 9.4 mg/dL 7.6-11.0 [facility] Serum or plasma urea nitroge n measurement (mass/volume)Ordered By: Marlo Echevarria on 04-12-2025 Urea nitrogen [Mass/Vol] 18 mg/dL 4-19 [facility] Sodium levelOrdered By: Aroldo Echevarria on 04-12-2025 Sodium [Moles/Vol] 139 mmol/L 133-145 [facility] Squamous epithelial cells de tection in urine sediment by light microscopyOrdered By: Marlo Echevarria on 04-12-2025 Epithelial cells.squamous LM Ql (Urine sed) 0 SEEN /hpf 0-5 [facility] Urinalysis, Completeon 04-12 BACTERIA 3+ /hpf Normal None Seen [facility] Comment on above: Order Comment: CLEAN CATCH Performed By: #### L 500.2500, L100.0100 #### [facility] [address] [place], [address] RBC 0-5 SEEN Normal 0-5 [facility] Comment on above: Order Comment: CLEAN CATCH Performed By: #### L 500.2500, L100.0100 #### [facility] [address] [place], [address] WBC 25-50 SEEN Normal 0-5 [facility] Comment on above: Order Comment: CLEAN CATCH Performed By: #### L 500.2500, L100.0100 #### [facility] [address] [place], [address] EPI,SQUAMOUS 0 SEEN Normal 0-5 [facility] Comment on above: Order Comment: CLEAN CATCH Performed By: #### L 500.2500, L100.0100 #### [facility] [address] [place], [address] Mucus Ql (Urine sed) 0 SEEN Normal [facility] Comment on above: Order Comment: CLEAN CATCH Performed By: #### L 500.2500, L100.0100 #### [facility] [address] [place], [address] Urine clarityOrdered By: Eva Echevarria on 04-12-2025 Clarity (U) Sl. Cloudy Clear [facility] Urine color determinationOrd ered By: Marlo Echevarria on 04-12-2025 Color (U) Yellow Yellow [facility] Urine cultureOrdered By: Eva Echevarria on 04-12-2025 Bacteria identified Cx Nom (U) Escherichia coli Abnormal [facility] Urine glucose detectionOrder ed By: Marlo Echevarria on 04-12-2025 Glucose Ql (U) Normal mg/dl Normal [facility] Urine leukocyte esterase det ection by dipstickOrdered By: Marlo Echevarria on 04-12-2025 Leukocyte esterase Test strip Ql (U) 500 /ul High Negative [facility] Urine pHOrdered By: Marlo Montana gur on 04-12-2025 pH (U) 6.5 [pH] 5.0 - 8.0 [facility] Urine sediment bacteria coun t by microscopy (number/high power field)Ordered By: Marlo Echevarria on 04-12-2025 Bacteria LM.HPF (Urine sed) [#/Area] 3 /[HPF] None Seen [facility] Urine specific gravity measu rementOrdered By: Marlo Echevarria on 04-12-2025 Specific gravity (U) [Rel density] 1.010 1.002-1.030 [facility] Urine urobilinogen measureme ntOrdered By: Marlo Echevarria on 04-12-2025 Urobilinogen Ql (U) Normal mg/dl Normal [facility] White blood cell (WBC) count Ordered By: Marlo Echevarria on 04-12-2025 WBC (Bld) [#/Vol] 4.5 10*3/uL 4.4-11.0 [facility] White blood cell countOrdere d By: Marlo Echevarria on 04-12-2025 White blood cell count 25-50 SEEN /hpf 0-5 [facility] XR SCOLIOSIS 2V PA STAND/LAT on 03-19-2025 XR SCOLIOSIS 2V PA STAND/LAT * * *Final Report* * * DATE OF EXAM: Mar 19 2025 12:50PM [id number] [id number] - XR SCOLIOSIS 2V PA STAND/LAT / PROCEDURE REASON: Other secondary kyphosis, thoracic region * * * * Physician Interpretation * * * * EXAMINATION: XR SCOLIOSIS 2V PA STAND/LAT PATIENT/TECHNOLOGIST PROVIDED HISTORY: thoracic kyphosis CLINICAL INFORMATION ( PROVIDED BY ORDERING CLINICIAN) : Other secondary kyphosis, thoracic region TECHNIQUE: XR SCOLIOSIS 2V PA STAND/LAT COMPARISON: 03/13/2024 RESULT: Examination is limited by overpenetration and post processing artifact on the AP projection. Lateral projection is limited by motion artifact. The cervical spine is excluded from the [id number] on the lateral projection. Counting reference: Lumbosacral junction. For the purposes of this report, L5-S1 is considered the most caudal well formed disc space. Posterior instrumented fusion is noted in the lumbar spine at L3-S1 with interbody spacers. Hardware appears intact. Dextroscoliosis of the thoracolumbar spine with Tiwari angle measuring 42 degrees from T12 through L3, previously 36 degrees. Similar exaggerated thoracic kyphosis centered along the thoracolumbar junction. No definite focal compression deformity. No substantial listhesis is seen in the given [id number]. IMPRESSION: Slightly increased thoracolumbar kyphoscoliosis as described. Posterior instrumented fusion at L3-S1 with intact hardware. 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: [employer] Transcribe Date/Time: Mar 19 2025 1:24P Dictated by : STEVIE MATUTE MD This examination was interpreted and the report reviewed and electronically signed by: STEVIE MATUTE MD on Mar 19 2025 1:31PM EST [id number] Normal [facility] XR Thoracic and lumbar spine [facility] IMPRESSION: Slightly increased thoracolumbar kyphoscoliosis as described. Posterior instrumented fusion at L3-S1 with intact hardware. 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: [employer] Transcribe Date/Time: Mar 19 2025 1:24P Dictated by : STEVIE MATUTE MD This examination was interpreted and the report reviewed and electronically signed by: STEVIE MATUTE MD on Mar 19 2025 1:31PM EST [facility] * * *Final Report* * * DATE OF EXAM: Mar 19 2025 12:50PM [id number] - XR SCOLIOSIS 2V PA STAND/LAT / PROCEDURE REASON: Other secondary kyphosis, thoracic region * * * * Physician Interpretation * * * * EXAMINATION: XR SCOLIOSIS 2V PA STAND/LAT PATIENT/TECHNOLOGIST PROVIDED HISTORY: thoracic kyphosis CLINICAL INFORMATION ( PROVIDED BY ORDERING CLINICIAN) : Other secondary kyphosis, thoracic region TECHNIQUE: XR SCOLIOSIS 2V PA STAND/LAT COMPARISON: 03/13/2024 RESULT: Examination is limited by overpenetration and post processing artifact on the AP projection. Lateral projection is limited by motion artifact. The cervical spine is excluded from the [id number] on the lateral projection. Counting reference: Lumbosacral junction. For the purposes of this report, L5-S1 is considered the most caudal well formed disc space. Posterior instrumented fusion is noted in the lumbar spine at L3-S1 with interbody spacers. Hardware appears intact. Dextroscoliosis of the thoracolumbar spine with Tiwari angle measuring 42 degrees from T12 through L3, previously 36 degrees. Similar exaggerated thoracic kyphosis centered along the thoracolumbar junction. No definite focal compression deformity. No substantial listhesis is seen in the given [id number]. [facility] Provider, [facility] * * *Final Report* * * DATE OF EXAM: Mar 19 2025 12:50PM VHX 5251 - XR SCOLIOSIS 2V PA STAND/LAT / PROCEDURE REASON: Other secondary kyphosis, thoracic region * * * * Physician Interpretation * * * * EXAMINATION: XR SCOLIOSIS 2V PA STAND/LAT PATIENT/TECHNOLOGIST PROVIDED HISTORY: thoracic kyphosis CLINICAL INFORMATION ( PROVIDED BY ORDERING CLINICIAN) : Other secondary kyphosis, thoracic region TECHNIQUE: XR SCOLIOSIS 2V PA STAND/LAT COMPARISON: 03/13/2024 RESULT: Examination is limited by overpenetration and post processing artifact on the AP projection. Lateral projection is limited by motion artifact. The cervical spine is excluded from the [id number] on the lateral projection. Counting reference: Lumbosacral junction. For the purposes of this report, L5-S1 is considered the most caudal well formed disc space. Posterior instrumented fusion is noted in the lumbar spine at L3-S1 with interbody spacers. Hardware appears intact. Dextroscoliosis of the thoracolumbar spine with Tiwari angle measuring 42 degrees from T12 through L3, previously 36 degrees. Similar exaggerated thoracic kyphosis centered along the thoracolumbar junction. No definite focal compression deformity. No substantial listhesis is seen in the given [id number]. IMPRESSION IMPRESSION: Slightly increased thoracolumbar kyphoscoliosis as described. Posterior instrumented fusion at L3-S1 with intact hardware. 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: PSCB Transcribe Date/Time: Mar 19 2025 1:24P Dictated by : STEVIE MATUTE MD This examination was interpreted and the report reviewed and electronically signed by: STEVIE MATUTE MD on Mar 19 2025 1:31PM EST [facility] Radiology Study observation (narrative) Cara Walters XR Thoracic and lumbar spine Views for scoliosis W standingOrdered By: [facility] Provider on 03-19-2025 [facility] Urine Cultureon 01-31-2025 [facility] Below infection leve l. Presumptive C albicans [place] Count <1000 Normal [facility] Comment on above: Performed By: #### L 500.2500, L100.0100 #### [facility] [address] [place], [address] Absolute lymphocyte countOrd ered By: Pool Lopez on 01-29-2025 Lymphocytes Auto (Unsp spec) [#/Vol] 1.27 10*3/uL 0.83-4.51 [facility] Absolute neutrophil countOrd ered By: Pool Lopez on 01-29-2025 Neutrophils (Bld) [#/Vol] 2.2 10*3/uL 2.0-7.7 [facility] Anion gap in Serum or Plasma Ordered By: Pool Lopez on 01-29-2025 Anion gap [Moles/Vol] 11 mmol/L 5-15 [facility] Automated lymphocyte count a s percentage of total leukocytesOrdered By: Pool Lopez on 01-29-2025 Lymphocytes/100 WBC Auto (Unsp spec) 31.1 % 19-41 [facility] BUN/creatinine ratioOrdered By: Pool Lopez on 01-29-2025 Urea nitrogen/Creatinine [Mass ratio] 16.8 mg/mg 10- [facility] Basic Metabolic Profile (BMP )on 01-29-2025 BUN/CRE 16.8 RATIO Normal - [facility] Comment on above: Performed By: #### L 500.2500, L100.0100 #### [facility] [address] [place], [address] Calcium [Mass/Vol] 8.9 mg/dL Normal 7.6-11.0 [facility] Comment on above: Performed By: #### L 500.2500, L100.0100 #### [facility] [address] [place], [address] Chloride [Moles/Vol] 103 mmol/L Normal 98-108 [facility] Comment on above: Performed By: #### L 500.2500, L100.0100 #### [facility] [address] [place], [address] CO2 [Moles/Vol] 23.1 mmol/L Normal 21.0-32.0 [facility] Comment on above: Performed By: #### L 500.2500, L100.0100 #### [facility] [address] [place], [address] Creatinine [Mass/Vol] 1.39 mg/dL High 0.70-1.20 [facility] Comment on above: Performed By: #### L 500.2500, L100.0100 #### [facility] [address] [place], [address] ECRCL 39.64 ml/min Low 50-250 [facility] Comment on above: Performed By: #### L 500.2500, L100.0100 #### [facility] [address] [place], [address] GAP 11 Normal 5-15 [facility] Comment on above: Performed By: #### L 500.2500, L100.0100 #### [facility] [address] [place], [address] GFR/1.73 sq M.predicted among non-blacks MDRD (S/P/Bld) [Vol rate/Area] 51 mL/min/{1.73_m2} Low >60 [facility] Comment on above: Result Comment: mL/m in/1.73m2 CKD-EPI Creatinine Equation (2020) Performed By: #### L 500.2500, L100.0100 #### [facility] [address] [place], [address] Glucose [Mass/Vol] 127 mg/dL High 70-99 [facility] Comment on above: Performed By: #### L 500.2500, L100.0100 #### [facility] [address] [place], [address] Potassium [Moles/Vol] 3.9 mmol/L Normal 3.3-5.1 [facility] Comment on above: Performed By: #### L 500.2500, L100.0100 #### [facility] [address] [place], [address] Sodium [Moles/Vol] 137 mmol/L Normal 133-145 [facility] Comment on above: Performed By: #### L 500.2500, L100.0100 #### [facility] [address] [place], [address] Urea nitrogen [Mass/Vol] 23 mg/dL High 4-19 [facility] Comment on above: Performed By: #### L 500.2500, L100.0100 #### [facility] [address] [place], [address] Basophil percentageOrdered B y: Pool Lopez on 01-29-2025 Basophils/100 WBC (Bld) 0.2 % 0-1 [facility] Bilirubin Test strip Ql (U)O rdered By: Pool Lopez on 01-29-2025 Bilirubin Ql (U) Negative Negative [facility] CBC W/Diff, Automatedon 05- Absolute Lymph 1.27 X10 3/uL Normal 0.83-4.51 [facility] Comment on above: Performed By: #### L 500.2500, L100.0100 #### [facility] [address] [place], [address] Absolute Neut 2.2 X10 3/uL Normal 2.0-7.7 [facility] Comment on above: Performed By: #### L 500.2500, L100.0100 #### [facility] [address] [place], [address] Basophils/100 WBC (Bld) 0.2 % Normal 0-1 [facility] Comment on above: Performed By: #### L 500.2500, L100.0100 #### [facility] [address] [place], [address] Eosinophils/100 WBC (Bld) 0.7 % Normal 0-5 [facility] Comment on above: Performed By: #### L 500.2500, L100.0100 #### [facility] [address] [place], [address] Erythrocyte distribution width (RBC) [Ratio] 12.9 % Normal 11.6-14.6 [facility] Comment on above: Performed By: #### L 500.2500, L100.0100 #### [facility] [address] [place], [address] Hematocrit (Bld) [Volume fraction] 36.0 % Low 40-54 [facility] Comment on above: Performed By: #### L 500.2500, L100.0100 #### [facility] [address] [place], [address] Hemoglobin (Bld) [Mass/Vol] 11.7 g/dL Low 13.0-16.5 [facility] Comment on above: Performed By: #### L 500.2500, L100.0100 #### [facility] [address] [place], [address] IG% 0.200 Normal 0.0-0.9 [facility] Comment on above: Result Comment: IG% - Immature Granulocytes (promyelocytes, myelocytes and metamyelocytes) > 1% indicates that a LEFT SHIFT is Present. Performed By: #### L 500.2500, L100.0100 #### [facility] [address] [place], [address] Lymphocytes/100 WBC (Bld) 31.1 % Normal 19-41 [facility] Comment on above: Performed By: #### L 500.2500, L100.0100 #### [facility] [address] [place], [address] MCH (RBC) [Entitic mass] 32.2 pg High 27.0-32.0 [facility] Comment on above: Performed By: #### L 500.2500, L100.0100 #### [facility] [address] [place], [address] MCHC (RBC) [Mass/Vol] 32.5 g/dL Normal 32-36 [facility] Comment on above: Performed By: #### L 500.2500, L100.0100 #### [facility] [address] [place], [address] MCV (RBC) [Entitic vol] 99.2 fL High 80-94 [facility] Comment on above: Performed By: #### L 500.2500, L100.0100 #### [facility] [address] [place], [address] Monocytes/100 WBC (Bld) 13.2 % High 0-10 [facility] Comment on above: Performed By: #### L 500.2500, L100.0100 #### [facility] [address] [place], [address] Neutrophils/100 WBC (Bld) 54.6 % Normal 47-70 [facility] Comment on above: Performed By: #### L 500.2500, L100.0100 #### [facility] [address] [place], [address] Nucleated RBC (Bld) [#/Vol] 0 10*3/uL Normal 0-5 [facility] Comment on above: Performed By: #### L 500.2500, L100.0100 #### [facility] [address] [place], [address] Platelet mean volume (Bld) [Entitic vol] 9.2 fL Normal 6.2-12.0 [facility] Comment on above: Performed By: #### L 500.2500, L100.0100 #### [facility] [address] [place], [address] Platelets (Bld) [#/Vol] 164 10*3/uL Normal 150-450 [facility] Comment on above: Performed By: #### L 500.2500, L100.0100 #### [facility] [address] [place], [address] RBC (Bld) [#/Vol] 3.63 10*6/uL Low 4.6-6.2 [facility] Comment on above: Performed By: #### L 500.2500, L100.0100 #### [facility] [address] [place], [address] RDW SD 47.2 fl High 35.1-43.9 [facility] Comment on above: Performed By: #### L 500.2500, L100.0100 #### [facility] [address] [place], [address] WBC (Bld) [#/Vol] 4.1 10*3/uL Low 4.4-11.0 [facility] Comment on above: Performed By: #### L 500.2500, L100.0100 #### [facility] [address] [place], [address] Carbon dioxide, total [Moles /volume] in Central venous bloodOrdered By: Pool Lopez on 01-29-2025 CO2 [Moles/Vol] 23.1 mmol/L 21.0-32.0 [facility] Chloride assayOrdered By: Juan Lopez on 01-29-2025 Chloride [Moles/Vol] 103 mmol/L 98-108 [facility] Emergency Department Summary on 01-29-2025 Emergency Department Summary [facility] Medical Records Department [address] [place] [address] Emergency Department Summary 01/29/25 MR#: [id number] Acct: [id number] Name: JAVIER BOND Rep #: [id number] : 1940 84 From: Pool Lopez MD PCP: Dr. Francisco Bahena MD Status:REG ER Location: ED HPI History of Present Illness Chief Complaint: Weakness Narrative Narrative: 84-year-old male presents via EMS with bilateral leg weakness that he experienced this evening. He had his relate history that they were seen in the emergency department a few weeks ago. He was admitted because he had a UTI, and he was unable to walk and was very weak. He also had an MRI of the spine at that time. They relate history that he was treated for urinary tract infection and had been given fosfomycin. He denies any recent problems with dysuria or symptoms, however he was seen by his primary care provider on Tuesday, and diagnosed with a UTI and started on Bactrim. Today, he had bilateral lower extremity weakness again even though he sees physical therapy at his house 2 or 3 times a week. He states that he usually tries to go down the stairs backwards. These and was folded up "like a pretzel" according to his . He denies actually falling, hitting his head, or injury. He was trying to get turned around so he could stand up but was unable to. Hence, his called the squad, and they had to help pick him up. He has not had any recent fevers or chills, no other symptoms except for the bilateral lower extremity weakness which has been ongoing. His states that whenever he has a urinary tract infection, this is his main symptom and he becomes weak. [facility] Medical History History of ESBL E. coli infection Anxiety Depression Kidney stones Kidney disease Former smoker Anxiety and depression HLD (hyperlipidemia) CKD (chronic kidney disease), stage II Dementia Left inguinal hernia Groin pain Inguinal hernia bilateral, non-recurrent Right inguinal hernia History of kidney stones History of hiatal hernia Abdominal pain BPH (benign prostatic hyperplasia) Arthritis History of back problems Hypertension Home Medications ???Medication ???Instructions ???Recorded ???Last Taken ???Type acetaminophen 500 mg tablet 1,000 mg PO PRN Pain 07/09/17 Unkn own History hydrochlorothiazide 12.5 mg capsule 12.5 mg PO DAILY diuretic 04/0301/07/25 History doxycycline hyclate 20 mg tablet 20 mg PO BID infection 03/13/19 History metronidazole 0.75 % topical cream 1 applic topical DAILY skin heal th 07/16/19 01/07/25 History aspirin 81 mg tablet,delayed 81 mg PO QHS heart health 01/28/21 01/07/25 History release (Rika Low Dose Aspirin) multivitamin 1 tab PO DAILY vitamin 05/18/21 History pantoprazole 40 mg tablet,delayed 40 mg PO DAILY reflux 05/03/22 History release d-mannose 1 ea PO DAILY 09/24/23 01/07/25 Hi story dupilumab 300 mg/2 mL subcutaneous 300 mg subcut .COMPLEX skin heal 09/24/23 Unknown History pen injector (Edvert) lisinopril 5 mg tablet 5 mg PO DAILY blood pressure 09/24 Unknown History BACLOFEN SUPPOSITORY 1 supp OTHER DAILY CONSITPATION Unknown History Lactobacillus acidophilus 10 80 mmu cells PO DAILY 01/08/25 History billion cell capsule (NewFlora) donepezil 5 mg tablet 10 mg PO DAILY 01/08/25 01/07/25 H istory furosemide 20 mg tablet 20 mg PO DAILY 01/08/25 01/07/25 H istory guaifenesin 600 mg tablet, 600 mg PO BID 01/08/25 01/07/25 Hi story extended release 12 hr (Mucinex) melatonin 5 mg tablet 5 mg PO QHS 01/08/25 01/07/25 Hist ory memantine 10 mg tablet 10 mg PO BID 01/08/25 01/07/25 His tory methenamine hippurate 1 gram tablet 1 g PO BID 01/08/25 01/07/25 Hi story plecanatide 3 mg tablet (Trulance) 3 mg PO DAILY 01/08/25 Unknown H istory Held on 01/29/25. Instructions: reports being on hold 12/13/2024 polyethylene glycol 3350 17 17 g PO DAILY 01/08/25 01/07/25 Hi story gram/dose oral powder (ClearLax) sertraline 25 mg tablet 25 mg PO DAILY 01/08/25 01/07/25 H istory trazodone 100 mg tablet 100 mg PO QHS 01/08/25 01/07/25 Hi story triamcinolone acetonide 1 applic topical DAILY PRN itching 01/08/25 01/07/25 History fosfomycin tromethamine 3 gram 1 packet PO QODAY 3 doses #1 ea Unknown Rx oral packet hydrochlorothiazide 12.5 mg tablet 12.5 mg PO DAILY 01/29/25 Unknow n History sulfamethoxazole 800 1 tab PO BID 01/29/25 Unknown Hist ory mg-trimethoprim 160 mg tablet Allergy/AdvReac Type Severity Reaction Status Date / Time Iodinated Contrast Media Allergy Hives Verified 01/29/25 20:26 (CONTRASTS) azelaic acid (From Finacea) AdvReac Rash Veri (more content not included)... Normal [facility] Eosinophil percentageOrdered By: Pool Lopez on 01-29-2025 Eosinophils/100 WBC (Bld) 0.7 % 0-5 [facility] Epithelial cells.squamous LM Ql (Urine sed)Ordered By: Pool Lopez on 01-29-2025 Epithelial cells.squamous LM.HPF (Urine sed) [#/Area] 0 /[HPF] 0-5 [facility] Erythrocyte distribution wid th (RBC) [Ratio]Ordered By: Pool Lopez on 01-29-2025 Erythrocyte distribution width (RBC) [Entitic vol] 47.2 fL High 35.1-43.9 [facility] Erythrocyte distribution wid th ratioOrdered By: Pool Lopez on 01-29-2025 Erythrocyte distribution width (RBC) [Ratio] 12.9 % 11.6-14.6 [facility] Erythrocyte distribution wid th standard deviationOrdered By: Pool Lopez on 01-29-2025 Erythrocyte distribution width (RBC) [Ratio] 47.2 fl High 35.1-43.9 [facility] Estimation of creatinine mariam aranceOrdered By: Pool Lopez on 01-29-2025 Estimated Creatinine Clearance Calc 39.64 ml/min Low 50-250 [facility] GFR/1.73 sq M.predicted benedict g non-blacks MDRD (S/P/Bld) [Vol rate/Area]Ordered By: Pool Lopez on 01-29-2025 Estimated GFR (MDRD) Non-Af Amer 51 Low >60 [facility] Comment on above: mL/min/1.73m2 CKD-EP I Creatinine Equation (2020) Glomerular filtration rate ( GFR) estimation/1.73 sq m using serum, plasma, or whole bOrdered By: Pool Lopez on 01-29-2025 GFR/1.73 sq M.predicted among non-blacks MDRD (S/P/Bld) [Vol rate/Area] 51 mL/min/{1.73_m2} Low >60 [facility] Comment on above: mL/min/1.73m2 CKD-EP I Creatinine Equation (2020) Glucose Ql (U)Ordered By: Juan Lopez on 01-29-2025 Urine Glucose (UA) Normal mg/dl Normal [facility] Hematocrit Auto (Bld) [Volum e fraction]Ordered By: Pool Lopez on 01-29-2025 Hematocrit (Bld) [Volume fraction] 36.0 % Low 40-54 [facility] Hemoglobin measurementOrdere d By: Pool Lopez on 01-29-2025 Hemoglobin (Bld) [Mass/Vol] 11.7 g/dL Low 13.0-16.5 [facility] Immature granulocytes/100 WB C Auto (Bld)Ordered By: Pool Lopez on 01-29-2025 Immature granulocytes/100 WBC (Bld) 0.200 % 0.0-0.9 [facility] Comment on above: IG% - Immature Granu locytes (promyelocytes, myelocytes and metamyelocytes) > 1% indicates that a LEFT SHIFT is Present. Ketones Test strip Ql (U)Ord ered By: Pool Lopez on 01-29-2025 Ketones Ql (U) Negative Negative [facility] Lymphocytes Auto (Unsp spec) [#/Vol]Ordered By: Pool Lopez on 01-29-2025 Lymphocytes (Bld) [#/Vol] 1.27 10*3/uL 0.83-4.51 [facility] Lymphocytes/100 WBC Auto (Un sp spec)Ordered By: Pool Lopez on 01-29-2025 Lymphocytes/100 WBC (Bld) 31.1 % 19-41 [facility] MCV (mean corpuscular volume ) determinationOrdered By: Pool Lopez on 01-29-2025 MCV (RBC) [Entitic vol] 99.2 fL High 80-94 [facility] Mean corpuscular hemoglobin (MCH) determinationOrdered By: Pool Lopez on 01-29-2025 MCH (RBC) [Entitic mass] 32.2 pg High 27.0-32.0 [facility] Mean corpuscular hemoglobin concentration (MCHC) determinationOrdered By: Pool Lopez on 01-29-2025 MCHC (RBC) [Mass/Vol] 32.5 g/dL 32-36 [facility] Mean platelet volume determi nationOrdered By: Pool Lopez on 01-29-2025 Platelet mean volume (Bld) [Entitic vol] 9.2 fL 6.2-12.0 [facility] Microscopic analysis of urin e for red blood cells (RBC)Ordered By: Pool Lopez on 01-29-2025 Microscopic analysis of urine for red blood cells (RBC) 0-5 SEEN /hpf 0-5 [facility] Urine RBC 0-5 SEEN /hpf 0-5 [facility] Monocyte percentageOrdered B y: Pool Lopez on 01-29-2025 Monocytes/100 WBC (Bld) 13.2 % High 0-10 [facility] Mucus LM Ql (Urine sed)Order ed By: Pool Lopez on 01-29-2025 Mucus Ql (Urine sed) 0 SEEN /hpf [facility] Neutrophil percentageOrdered By: Pool Lopez on 01-29-2025 Neutrophils/100 WBC (Bld) 54.6 % 47-70 [facility] Nitrite Test strip Ql (U)Ord ered By: Pool Lopez on 01-29-2025 Nitrite Ql (U) Negative Negative [facility] Nucleated red blood cell per centageOrdered By: Pool Lopez on 01-29-2025 Nucleated RBC/100 WBC (Bld) [Ratio] 0 % 0-5 [facility] Platelet countOrdered By: Juan Lopez on 01-29-2025 Platelets (Bld) [#/Vol] 164 10*3/uL 150-450 [facility] Potassium (Unsp spec) [Mass/ Vol]Ordered By: Pool Lopez on 01-29-2025 Potassium [Moles/Vol] 3.9 mmol/L 3.3-5.1 [facility] Potassium measurement (mass/ volume)Ordered By: Pool Lopez on 01-29-2025 Potassium (Unsp spec) [Mass/Vol] 3.9 mmol/L 3.3-5.1 [facility] Protein Test strip Ql (U)Ord ered By: Pool Lopez on 01-29-2025 Protein Ql (U) 15 mg/dl High Negative [facility] RBC Auto (Bld) [#/Vol]Ordere d By: Pool Lopez on 01-29-2025 RBC (Bld) [#/Vol] 3.63 10*6/uL Low 4.6-6.2 [facility] Serum creatinine measurement (mass/volume)Ordered By: Pool Lopez on 01-29-2025 Creatinine [Mass/Vol] 1.39 mg/dL High 0.70-1.20 [facility] Serum glucose measurement (m ass/volume)Ordered By: Pool Lopez on 01-29-2025 Glucose [Mass/Vol] 127 mg/dL High 70-99 [facility] Serum or plasma calcium shon urement (mass/volume)Ordered By: Pool Lopez on 01-29-2025 Calcium [Mass/Vol] 8.9 mg/dL 7.6-11.0 [facility] Serum or plasma urea nitroge n measurement (mass/volume)Ordered By: Pool Lopez on 01-29-2025 Urea nitrogen [Mass/Vol] 23 mg/dL High 4-19 [facility] Sodium levelOrdered By: Pool Lopez on 01-29-2025 Sodium [Moles/Vol] 137 mmol/L 133-145 [facility] Squamous epithelial cells de tection in urine sediment by light microscopyOrdered By: Pool Lopez on 01-29-2025 Epithelial cells.squamous LM Ql (Urine sed) 0-5 SEEN /hpf 0-5 [facility] Urinalysis, Completeon 01-29 EPI,SQUAMOUS 0-5 SEEN Normal 0-5 [facility] Comment on above: Order Comment: CLEAN CATCH Performed By: #### L 500.2500, L100.0100 #### [facility] [address] [place], [address] RBC 0-5 SEEN Normal 0-5 [facility] Comment on above: Order Comment: CLEAN CATCH Performed By: #### L 500.2500, L100.0100 #### [facility] [address] [place], [address] WBC 10-25 SEEN Normal 0-5 [facility] Comment on above: Order Comment: CLEAN CATCH Performed By: #### L 500.2500, L100.0100 #### [facility] [address] [place], [address] BACTERIA 0 SEEN Normal None Seen [facility] Comment on above: Order Comment: CLEAN CATCH Performed By: #### L 500.2500, L100.0100 #### [facility] [address] [place], [address] Mucus Ql (Urine sed) 0 SEEN Normal [facility] Comment on above: Order Comment: CLEAN CATCH Performed By: #### L 500.2500, L100.0100 #### [facility] [address] [place], [address] Urine blood detectionOrdered By: Pool Lopez on 01-29-2025 Urine Occult Blood 25 /ul High Negative [facility] Urine clarityOrdered By: Dalia Lopez on 01-29-2025 Clarity (U) Sl. Cloudy Clear [facility] Urine color determinationOrd ered By: Pool Lopez on 01-29-2025 Color (U) Yellow Yellow [facility] Urine cultureOrdered By: Dalia Lopez on 01-29-2025 Bacteria identified Cx Nom (U) Presumptive C albicans Abnormal [facility] Urine glucose detectionOrder ed By: Pool Lopez on 01-29-2025 Glucose Ql (U) Normal mg/dl Normal [facility] Urine leukocyte esterase det ection by dipstickOrdered By: Pool Lopez on 01-29-2025 Leukocyte esterase Test strip Ql (U) 100 /ul High Negative [facility] Urine pHOrdered By: Pool ngo on 01-29-2025 pH (U) 6.0 [pH] 5.0 - 8.0 [facility] Urine sediment bacteria coun t by microscopy (number/high power field)Ordered By: Pool Lopez on 01-29-2025 Bacteria LM.HPF (Urine sed) [#/Area] 0 /[HPF] None Seen [facility] Urine specific gravity measu rementOrdered By: Pool Lopez on 01-29-2025 Specific gravity (U) [Rel density] 1.015 1.002-1.030 [facility] Urine urobilinogen measureme ntOrdered By: Pool Lopez on 01-29-2025 Urobilinogen Ql (U) Normal mg/dl Normal [facility] Urobilinogen Ql (U)Ordered B y: Pool Lopez on 01-29-2025 Urine Urobilinogen Normal mg/dl Normal [facility] White blood cell (WBC) count Ordered By: Pool Lopez on 01-29-2025 WBC (Bld) [#/Vol] 4.1 10*3/uL Low 4.4-11.0 [facility] White blood cell countOrdere d By: Pool Lopez on 01-29-2025 Urine WBC 10-25 SEEN /hpf 0-5 [facility] White blood cell count 10-25 SEEN /hpf 0-5 [facility] [id number] 01-28-2025 [id number] HNO ID: [id number] Author: QASIM ANSARI PT Service: ? Author Type: Physical Therapist Type: [id number] Filed: 01/28/2025 14:23 Note Text: [facility] Physical Therapy Plan of Care Certification Patient Name: Javier Bond : 1940 [facility] #: [id number] Date: 01/28/2025 To: Daniela Noel, APR* From Therapist: Qasim Ansari PT RE: Patient Certification/ Recertification Your review, approval and electronic signature are required in order to comply with Payor: [employer] MED[employer]ARE / Plan: [employer] MED[employer]ARE PPO / Product Type: PPO / regulations. 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 The patient presents with impairments in coordination, independence in exercise, overall function, symptom management, and tissue tenderness. PROMIS? (Patient-Reported Outcomes Measurement Information System) scores were reviewed and identified as a rehabilitation concern. Prognosis for therapy is Good due to: current objective clinical presentation . Implementation of baclofen suppositories likely contribute to minimal PFM restrictions noted today with external exam. Underlying chronic history of constipation, lumbopelvic pain and falls could contribute to onset of high PFM tone noted with anorectal manometry. The patient will benefit from skilled therapy services to meet the goals established for this plan of care as noted below. Goals for Episode of Care: established 01/28/25 Patient demonstrates independence and compliance with home exercise program. Patient displays improved range of motion, coordination, and muscle dynamics of pelvic floor as evidenced by the ability to lengthen without paradoxical contraction at least 80% of the time to normalize bowel function; reduce pelvic pain. Patient reports increased ability to fully empty bowels at least 80% of the time to normalize bowel function. Patient demonstrates ability to perform diaphragmatic breathing and relaxation practice independently to allow for decreased muscle tightness, decreased pain, and improved bladder/bowel function. Patient Goals: improve pelvic floor function to manage bowel function Time Frame for Goals and Treatment : 04/22/25 Planned Interventions, Frequency, and Duration: Current Frequency: 1x every other week Duration: 12 weeks Total Number of Visits Planned: 6 Planned Treatment Interventions: Therapeutic exercise (48521), Neuromuscular re-education (84257), Manual therapy (51740), Therapeutic activities (11406), Self-long-term management (50869) PLAN FOR NEXT VISIT: assess response to continued suppository use, DB and lengthening/squatty potty positioning with BM, internal PF exam PRN to assess muscular coordination formally, ed on bladder urge suppression as time allows Patient demonstrates good understanding of plan of care and treatment. The above goals and plan of care were discussed and agreed upon by patient/family. For further details regarding this patient refer to the Physical Therapy electronically documented visit dated 01/28/2025. Provider Attestation I have reviewed the treatment plan for Javier Bond, [facility]# [id number] for the period of 01/28/25 -- 04/22/25, established on 01/28/2025. Signature certifies the need for therapy services. Normal [facility] CNTHERAPYon 01-28-2025 CNTHERAPY OT/PT/Speech Visit (AKPTB) RONDAJAVIER Meza ([id number]) 1940 M NFR Date Time Provider Department 01/28/25 12:30 PM QASIM ANSARI Date Time Provider Department Center 01/28/2025 12:30 PM [id number], JORDAN [facility]PT[facility] Reason for Visit: PT Eval [747] Visit Diagnosis:Pelvic floor dysfunction [M62.89] Allergies As of Date: 01/28/2025 Noted Allergy Reaction CONTRAST DYE 03/24/2009 4 - Hives FINACEA (AZELAIC ACID) 09/28/2017 2 - Rash BACTRIM (SULFAMETHOXAZOLE-TRIM ETH*06/02/2005 16 - Unknown BEXTRA (VALDECOXIB) 06/02/2005 16 - Unknown CARDURA (DOXAZOSIN MESYLATE) 06/02/2005 16 - Unknown CIPROFLOXACIN 11/30/2002 16 - Unknown CYTOTEC (MISOPROSTOL) 06/02/2005 16 - Unknown FOSAMAX (ALENDRONATE SODIUM) 01/04/2020 11 - Vomiting Comments: heartburn, vomiting GABAPENTIN 01/28/2021 1 - Mental Status Change KETOCONAZOLE 09/06/2008 16 - Unknown LEVOFLOXACIN 01/26/2012 14 - Other: See Comments Comments: Pseudomonas MOBIC (MELOXICAM) 06/02/2005 16 - Unknown NITROFURANTOIN 05/15/2021 14 - Other: See Comments Comments: Per , he didn't feel well - unsure of reaction NSAIDS (NON-STEROIDAL ANTI-INFLAM*11/30/2002 16 - Unknown Comments: GI UPSET RELAFEN (NABUMETONE) 06/02/2005 16 - Unknown TERBINAFINE 10/02/2009 8 - GI Upset Date Reviewed: 01/21/2025 Reviewed by: Francisco Bahena MD - Fully Assessed Prescriptions as of 01/28/2025 - furosemide (LASIX) 20 mg tablet Take 1 tablet by mouth once daily. - sulfamethoxazole-trime thoprim (BACTRIM DS) 800-160 mg per tablet Take 1 tablet by mouth two times a day for 7 days. - traZODone (DESYREL) 100 mg tablet Take 1 tablet by mouth daily at bedtime. - memantine (NAMENDA) 10 mg tablet Per Neuro. Dr. Yu - sertraline (ZOLOFT) 25 mg tablet Take 1.5 tablets by mouth once daily. - Methenamine Hippurate (HIPREX) 1 gram tablet Take 1 tablet by mouth two times a day. - polyethylene glycol 3350 (MIRALAX) 17 gram/dose powder Take 17 g by mouth once daily. Dissolve dose in 4 - 8 ounces of liquid and take as directed. - metroNIDAZOLE 0.75 % cream Apply to affected area once daily. - pantoprazole DR (PROTONIX) 40 mg tablet Take 1 tablet by mouth two times a day. - hydroCHLOROthiazide 12.5 mg tablet Take 1 tablet by mouth once daily. - donepezil (ARICEPT) 5 mg tablet Take 2 tablets by mouth daily at bedtime. - lisinopril (ZESTRIL) 5 mg tablet Take 1 tablet by mouth once daily. - dupilumab 300 mg/2 mL subcutaneous syringe ([employer]) Inject 2 mL subcutaneously every 4 weeks. Per Derm: Dr. Mariee - Lactobacillus acidophilus (PROBIOTIC ACIDOPHILUS ORAL) Take 1 capsule by mouth once daily. - d-mannose powd Take 1/2 teaspoon by mouth once daily. - triamcinolone acetonide (KENALOG) 0.1 % cream Apply 1 application to affected area as directed. - doxycycline 20 mg tablet Take 20 mg by mouth twice daily. - multivit-min/iron/foli c acid/K (ADULTS MULTIVITAMIN ORAL) Take 1 tablet by mouth once daily. - MEDICAL SUPPLY KAFO for right lower extremity. - acetaminophen (TYLENOL) 500 mg tablet Take 2 tablets by mouth every 8 hours as needed for Pain or Fever. - aspirin 81 mg chewable tablet Take 1 tablet by mouth once daily. Meds Comments as of 08/04/2022: 08/04/22 The medications are managed by this patient by: PATIENT and SPOUSE Dorothy Stuart [facility] Senior Director Marketing: Therapy (PT/OT/Speech/Resp) ID: [id number] 01/28/2025 1:31 PM Author: QASIM ANSARI Signed by QASIM ANSARI PT on 01/28/2025 at 1:31 PM Document text: Program_ID:[id number] Access Code: [email or web address] URL: [email or web address]/ Date: 01-28-2025 Prepared By: Qasim Ansari Program Notes Exercises - Functional Diaphragm Breath and Lengthening - 2 x daily - 7 x weekly - 2 sets - 10 reps - Reclined Diaphragmatic Breathing - 2 x daily - 7 x weekly - 2 sets - 10 reps -- Normal [facility] THERAPY NTon 01-28-2025 THERAPY NT HNO ID: [id number] Author: QASIM ANSARI PT Service: ? Author Type: Physical Therapist Type: Therapy (PT/OT/Speech/Resp) Filed: 01/28/2025 13:31 Note Text: Program_ID:[id number] Access Code: [email or web address] URL: [email or web address]/ Date: 01-28-2025 Prepared By: Qasim Ansari Program Notes Exercises - Functional Diaphragm Breath and Lengthening - 2 x daily - 7 x weekly - 2 sets - 10 reps - Reclined Diaphragmatic Breathing - 2 x daily - 7 x weekly - 2 sets - 10 reps Normal [facility] Urine Cultureon 01-11-2025 [facility] RESULTS CALLED TO Mandi NICHOLS 01/10/25 0754 Laurel Manuel. REPORT READ BACK BY . Urine Culture Copy of report sent to Infection Control Printer [id number] 01/10/25 7083 GLO. ESBL Escherichia coli [place] Count >100,000 MARKER ESBL producing OrganismA MARKER ESBL producing OrganismA Ampicillin Islt CONOR >=32 R Ampicillin+Sulbac Islt CONOR 16 Cefepime Islt CONOR <=0.12 S cefTRIAXone Islt CONOR <=0.25 S Ciprofloxacin Islt CONOR <=0.06 S B-Lactamase Extended Susc Islt POS Gentamicin Islt CONOR <=1 S levoFLOXacin Islt CONOR <=0.12 S Meropenem Islt CONOR <=0.25 S Pip+Tazo Islt CONOR 8 S TMP SMX Islt CONOR <=20 S ESBL Escherichia coli: REACTION Amikacin Islt CONOR 2 S Eravacycline Islt CONOR <=0.12 Imipenem Islt CONOR <=0.25 S Tobramycin Islt CONOR <=1 S Normal [facility] Comment on above: Performed By: #### L 500.2500, L100.0100 #### [facility] [address] [place] [address]. [place], [address] Absolute lymphocyte countOrd ered By: Christoph Kilgore on 01-10-2025 Lymphocytes Auto (Unsp spec) [#/Vol] 1.38 10*3/uL 0.83-4.51 [facility] Absolute neutrophil countOrd ered By: Christoph Kilgore on 01-10-2025 Neutrophils (Bld) [#/Vol] 1.9 10*3/uL Low 2.0-7.7 [facility] Anion gap in Serum or Plasma Ordered By: Christoph Kilgore on 01-10-2025 Anion gap [Moles/Vol] 9 mmol/L 5-15 [facility] Automated lymphocyte count a s percentage of total leukocytesOrdered By: Christoph Kilgore on 01-10-2025 Lymphocytes/100 WBC Auto (Unsp spec) 36.9 % 19-41 [facility] BUN/creatinine ratioOrdered By: Christoph Kilgore on 01-10-2025 Urea nitrogen/Creatinine [Mass ratio] 30.1 mg/mg High 10-20 [facility] Basic Metabolic Profile (BMP )on 01-10-2025 BUN/CRE 30.1 RATIO High 10-20 [facility] Comment on above: Performed By: #### L 500.2500, L100.0100 #### [facility] [address] [place], [address] Calcium [Mass/Vol] 8.7 mg/dL Normal 7.6-11.0 [facility] Comment on above: Performed By: #### L 500.2500, L100.0100 #### [facility] [address] [place], [address] Chloride [Moles/Vol] 109 mmol/L High 98-108 [facility] Comment on above: Performed By: #### L 500.2500, L100.0100 #### [facility] [address] [place], [address] CO2 [Moles/Vol] 24.0 mmol/L Normal 21.0-32.0 [facility] Comment on above: Performed By: #### L 500.2500, L100.0100 #### [facility] [address] [place], [address] Creatinine [Mass/Vol] 0.81 mg/dL Normal 0.70-1.20 [facility] Comment on above: Performed By: #### L 500.2500, L100.0100 #### [facility] [address] [place], [address] ECRCL 68.02 ml/min Normal 50-250 [facility] Comment on above: Performed By: #### L 500.2500, L100.0100 #### [facility] [address] [place], [address] GAP 9 Normal 5-15 [facility] Comment on above: Performed By: #### L 500.2500, L100.0100 #### [facility] [address] [place], [address] GFR/1.73 sq M.predicted among non-blacks MDRD (S/P/Bld) [Vol rate/Area] 88 mL/min/{1.73_m2} Normal >60 [facility] Comment on above: Result Comment: mL/m in/1.73m2 CKD-EPI Creatinine Equation (2020) Performed By: #### L 500.2500, L100.0100 #### [facility] [address] [place], [address] Glucose [Mass/Vol] 91 mg/dL Normal 70-99 [facility] Comment on above: Performed By: #### L 500.2500, L100.0100 #### [facility] [address] [place], [address] Potassium [Moles/Vol] 3.9 mmol/L Normal 3.3-5.1 [facility] Comment on above: Performed By: #### L 500.2500, L100.0100 #### [facility] [address] [place], [address] Sodium [Moles/Vol] 142 mmol/L Normal 133-145 [facility] Comment on above: Performed By: #### L 500.2500, L100.0100 #### [facility] [address] [place], [address] Urea nitrogen [Mass/Vol] 24 mg/dL High 4-19 [facility] Comment on above: Performed By: #### L 500.2500, L100.0100 #### [facility] [address] [place], [address] Basophil percentageOrdered B y: Christoph Magui on 01-10-2025 Basophils/100 WBC (Bld) 0.8 % 0-1 [facility] CBC W/Diff, Automatedon - Absolute Lymph 1.38 X10 3/uL Normal 0.83-4.51 [facility] Comment on above: Performed By: #### L 500.2500, L100.0100 #### [facility] [address] [place], [address] Absolute Neut 1.9 X10 3/uL Low 2.0-7.7 [facility] Comment on above: Performed By: #### L 500.2500, L100.0100 #### [facility] [address] [place], [address] Basophils/100 WBC (Bld) 0.8 % Normal 0-1 [facility] Comment on above: Performed By: #### L 500.2500, L100.0100 #### [facility] [address] [place], [address] Eosinophils/100 WBC (Bld) 1.9 % Normal 0-5 [facility] Comment on above: Performed By: #### L 500.2500, L100.0100 #### [facility] [address] [place], [address] Erythrocyte distribution width (RBC) [Ratio] 13.6 % Normal 11.6-14.6 [facility] Comment on above: Performed By: #### L 500.2500, L100.0100 #### [facility] [address] [place], [address] Hematocrit (Bld) [Volume fraction] 32.9 % Low 40-54 [facility] Comment on above: Performed By: #### L 500.2500, L100.0100 #### [facility] [address] [place], [address] Hemoglobin (Bld) [Mass/Vol] 10.9 g/dL Low 13.0-16.5 [facility] Comment on above: Performed By: #### L 500.2500, L100.0100 #### [facility] [address] [place], [address] IG% 0.300 Normal 0.0-0.9 [facility] Comment on above: Result Comment: IG% - Immature Granulocytes (promyelocytes, myelocytes and metamyelocytes) > 1% indicates that a LEFT SHIFT is Present. Performed By: #### L 500.2500, L100.0100 #### [facility] [address] [place], [address] Lymphocytes/100 WBC (Bld) 36.9 % Normal 19-41 [facility] Comment on above: Performed By: #### L 500.2500, L100.0100 #### [facility] [address] [place], [address] MCH (RBC) [Entitic mass] 32.6 pg High 27.0-32.0 [facility] Comment on above: Performed By: #### L 500.2500, L100.0100 #### [facility] [address] [place], [address] MCHC (RBC) [Mass/Vol] 33.1 g/dL Normal 32-36 [facility] Comment on above: Performed By: #### L 500.2500, L100.0100 #### [facility] [address] [place], [address] MCV (RBC) [Entitic vol] 98.5 fL High 80-94 [facility] Comment on above: Performed By: #### L 500.2500, L100.0100 #### [facility] [address] [place], [address] Monocytes/100 WBC (Bld) 10.4 % High 0-10 [facility] Comment on above: Performed By: #### L 500.2500, L100.0100 #### [facility] [address] [place], [address] Neutrophils/100 WBC (Bld) 49.7 % Normal 47-70 [facility] Comment on above: Performed By: #### L 500.2500, L100.0100 #### [facility] [address] [place], [address] Nucleated RBC (Bld) [#/Vol] 0 10*3/uL Normal 0-5 [facility] Comment on above: Performed By: #### L 500.2500, L100.0100 #### [facility] [address] [place], [address] Platelet mean volume (Bld) [Entitic vol] 8.8 fL Normal 6.2-12.0 [facility] Comment on above: Performed By: #### L 500.2500, L100.0100 #### [facility] [address] [place], [address] Platelets (Bld) [#/Vol] 132 10*3/uL Low 150-450 [facility] Comment on above: Performed By: #### L 500.2500, L100.0100 #### [facility] [address] [place], [address] RBC (Bld) [#/Vol] 3.34 10*6/uL Low 4.6-6.2 [facility] Comment on above: Performed By: #### L 500.2500, L100.0100 #### [facility] [address] [place], [address] RDW SD 49.3 fl High 35.1-43.9 [facility] Comment on above: Performed By: #### L 500.2500, L100.0100 #### [facility] [address] [place], [address] WBC (Bld) [#/Vol] 3.7 10*3/uL Low 4.4-11.0 [facility] Comment on above: Performed By: #### L 500.2500, L100.0100 #### [facility] [address] [place], [address] Carbon dioxide, total [Moles /volume] in Central venous bloodOrdered By: Christoph Kilgore on 01-10-2025 CO2 [Moles/Vol] 24.0 mmol/L 21.0-32.0 [facility] Chloride assayOrdered By: Allyson Kilgore on 01-10-2025 Chloride [Moles/Vol] 109 mmol/L High 98-108 [facility] Discharge Instructionon 12-25 Discharge Instruction [facility] Medical Records Department [address] [place] [address] Instructions for Home/Discharge Instructions 01/10/25 1039 MR#: [id number] Acct: [id number] Name: JAVIER BOND Rep #: [id number] : 1940 84 From: Christoph Kilgore MD PCP: Dr. Francisco Bahena MD Status:ADM IN Discharge Instructions Diet Discharge Diet: No restrictions DC O2, CPAP, BIPAP needs Home O2 Discharge instructions: No Dressing / Incision Discharge Activity: Return to Normal Activity Dressing / Incision Call your doctor if you observe: Fever of 101 or Higher, Shortness of breath, Dizziness, Fainting spells, Swelling in the ankles, Chest pain and Increased palpitations (irregular heartbeat) Follow Up Care Test Results: Test results from this visit will be discussed in further detail at your follow-up appointment, if applicable. Discharge Plan Admission Admit Date/Time: 01/08/25 18:51 Attending Provider: Christoph Kilgore Primary Care Provider: Francisco Bahena Consulting Providers: Keyana Aldana Discharge Orders/Prescriptions Prescriptions: New fosfomycin tromethamine 3 gram packet 1 packet PO QODAY Qty: 1 0RF Continued metronidazole 0.75 % cream 1 applic TOPICAL DAILY acetaminophen 500 MG tablet 1,000 mg PO PRN hydrochlorothiazide 12.5 MG capsule 12.5 mg PO DAILY Patient Comments: doxycycline hyclate 20 mg tablet 20 mg PO BID Patient Comments: aspirin [Rika Low Dose Aspirin] 81 mg Tablet,Delayed Release (Dr/Ec) 81 mg PO QHS multivitamin Tablet 1 tab PO DAILY pantoprazole 40 mg Tablet,Delayed Release (Dr/Ec) 40 mg PO DAILY lisinopril 5 mg tablet 5 mg PO DAILY d-mannose Powder 1 ea PO DAILY Rx Instructions: 1/4 teaspoon on cereal each am. Dupixent Pen 300 mg/2 mL pen injector 300 mg subcut .COMPLEX Rx Instructions: 300 mg subcutaneously EVERY 6 WEEKS; donepezil 5 mg tablet 10 mg PO DAILY trazodone 100 mg tablet 100 mg PO QHS furosemide 20 mg tablet 20 mg PO DAILY memantine 10 mg tablet 10 mg PO BID methenamine hippurate 1 gram tablet 1 g PO BID sertraline 25 mg tablet 25 mg PO DAILY triamcinolone acetonide topical DAILY PRN (Reason: itching) melatonin 5 mg tablet 5 mg PO QHS NewFlora 10 billion cell capsule 80 mmu cells PO DAILY polyethylene glycol 3350 [ClearLax] 17 gram/dose powder 17 g PO DAILY guaifenesin [Mucinex] 600 mg tablet extended release 12hr 600 mg PO BID Trulance 3 mg tablet 3 mg PO DAILY Patient Comments: ON 12/13/24 BACLOFEN SUPPOSITORY 1 supp OTHER DAILY Referrals / Follow Up: Francisco Bahena MD [Primary Care Provider] - Within 1 Week Disposition Disposition (needs filled in before D/C Order can be placed): Home, Self Care 01/10/25 1044 Christoph Kilgore MD CC: Dr. Keyana Aldana MD; Dr. Francisco Bahena MD Signed Normal [facility] Eosinophil percentageOrdered By: Christoph Kilgore on 01-10-2025 Eosinophils/100 WBC (Bld) 1.9 % 0-5 [facility] Erythrocyte distribution wid th (RBC) [Ratio]Ordered By: Christoph Kilgore on 01-10-2025 Erythrocyte distribution width (RBC) [Entitic vol] 49.3 fL High 35.1-43.9 [facility] Erythrocyte distribution wid th ratioOrdered By: Christoph Kilgore on 01-10-2025 Erythrocyte distribution width (RBC) [Ratio] 13.6 % 11.6-14.6 [facility] Erythrocyte distribution wid th standard deviationOrdered By: Christoph Kilgore on 01-10-2025 Erythrocyte distribution width (RBC) [Ratio] 49.3 fl High 35.1-43.9 [facility] Estimation of creatinine mariam aranceOrdered By: Christoph Kilgore on 01-10-2025 Estimated Creatinine Clearance Calc 68.02 ml/min 50-250 [facility] Folate [Moles/Vol]Ordered By : Keyana Aldana on 01-10-2025 Serum Folate 19.10 ng/mL 4.60-34.80 [facility] Comment on above: Hemolysis, Results w ill be affected, Requires Recollection. Folate [Moles/volume] in Ser um or PlasmaOrdered By: Keyana Aldana on 01-10-2025 Folate [Moles/Vol] 19.10 ng/mL 4.60-34.80 [facility] Comment on above: Hemolysis, Results w ill be affected, Requires Recollection. Folates,Serum (Folic Acid)on 01-10-2025 FOLATES,SERUM 19.10 ng/mL Normal 4.60-34.80 [facility] Comment on above: Result Comment: Hemo lysis, Results will be affected, Requires Recollection. Performed By: #### L 500.2500, L100.0100 #### [facility] [address] [place], [address] GFR/1.73 sq M.predicted benedict g non-blacks MDRD (S/P/Bld) [Vol rate/Area]Ordered By: Christoph Kilgore on 01-10-2025 Estimated GFR (MDRD) Non-Af Amer 88 >60 [facility] Comment on above: mL/min/1.73m2 CKD-EP I Creatinine Equation (2020) Glomerular filtration rate ( GFR) estimation/1.73 sq m using serum, plasma, or whole bOrdered By: Christoph Kilgore on 01-10-2025 GFR/1.73 sq M.predicted among non-blacks MDRD (S/P/Bld) [Vol rate/Area] 88 mL/min/{1.73_m2} >60 [facility] Comment on above: mL/min/1.73m2 CKD-EP I Creatinine Equation (2020) Hematocrit Auto (Bld) [Volum e fraction]Ordered By: Christoph Kilgore on 01-10-2025 Hematocrit (Bld) [Volume fraction] 32.9 % Low 40-54 [facility] Hemoglobin measurementOrdere d By: Christoph Kilgore on 01-10-2025 Hemoglobin (Bld) [Mass/Vol] 10.9 g/dL Low 13.0-16.5 [facility] Immature granulocytes/100 WB C Auto (Bld)Ordered By: Christoph Kilgore on 01-10-2025 Immature granulocytes/100 WBC (Bld) 0.300 % 0.0-0.9 [facility] Comment on above: IG% - Immature Granu locytes (promyelocytes, myelocytes and metamyelocytes) > 1% indicates that a LEFT SHIFT is Present. Lymphocytes Auto (Unsp spec) [#/Vol]Ordered By: Christoph Kilgore on 01-10-2025 Lymphocytes (Bld) [#/Vol] 1.38 10*3/uL 0.83-4.51 [facility] Lymphocytes/100 WBC Auto (Un sp spec)Ordered By: Christoph Kilgore on 01-10-2025 Lymphocytes/100 WBC (Bld) 36.9 % 19-41 [facility] MCV (mean corpuscular volume ) determinationOrdered By: Christoph Kilgore on 01-10-2025 MCV (RBC) [Entitic vol] 98.5 fL High 80-94 [facility] Mean corpuscular hemoglobin (MCH) determinationOrdered By: Christoph Kilgore on 01-10-2025 MCH (RBC) [Entitic mass] 32.6 pg High 27.0-32.0 [facility] Mean corpuscular hemoglobin concentration (MCHC) determinationOrdered By: Christoph Kilgore on 01-10-2025 MCHC (RBC) [Mass/Vol] 33.1 g/dL 32-36 [facility] Mean platelet volume determi nationOrdered By: Christoph Kilgore on 01-10-2025 Platelet mean volume (Bld) [Entitic vol] 8.8 fL 6.2-12.0 [facility] Monocyte percentageOrdered B y: Christoph Kilgore on 01-10-2025 Monocytes/100 WBC (Bld) 10.4 % High 0-10 [facility] Neutrophil percentageOrdered By: Christoph Kilgore on 01-10-2025 Neutrophils/100 WBC (Bld) 49.7 % 47-70 [facility] Nucleated red blood cell per centageOrdered By: Christoph Kilgore on 01-10-2025 Nucleated RBC/100 WBC (Bld) [Ratio] 0 % 0-5 [facility] Platelet countOrdered By: Allyson Kilgore on 01-10-2025 Platelets (Bld) [#/Vol] 132 10*3/uL Low 150-450 [facility] Potassium (Unsp spec) [Mass/ Vol]Ordered By: Christoph Kilgore on 01-10-2025 Potassium [Moles/Vol] 3.9 mmol/L 3.3-5.1 [facility] Potassium measurement (mass/ volume)Ordered By: Christoph Kilgore on 01-10-2025 Potassium (Unsp spec) [Mass/Vol] 3.9 mmol/L 3.3-5.1 [facility] RBC Auto (Bld) [#/Vol]Ordere d By: Christoph Kilgore on 01-10-2025 RBC (Bld) [#/Vol] 3.34 10*6/uL Low 4.6-6.2 [facility] Serum creatinine measurement (mass/volume)Ordered By: Christoph Kilgore on 01-10-2025 Creatinine [Mass/Vol] 0.81 mg/dL 0.70-1.20 [facility] Serum glucose measurement (m ass/volume)Ordered By: Christoph Kilgore on 01-10-2025 Glucose [Mass/Vol] 91 mg/dL 70-99 [facility] Serum or plasma calcium shon urement (mass/volume)Ordered By: Christoph Kilgore on 01-10-2025 Calcium [Mass/Vol] 8.7 mg/dL 7.6-11.0 [facility] Serum or plasma urea nitroge n measurement (mass/volume)Ordered By: Christoph Kilgore on 01-10-2025 Urea nitrogen [Mass/Vol] 24 mg/dL High 4-19 [facility] Sodium levelOrdered By: Raj Kilgore on 01-10-2025 Sodium [Moles/Vol] 142 mmol/L 133-145 [facility] White blood cell (WBC) count Ordered By: Christoph Kilgore on 01-10-2025 WBC (Bld) [#/Vol] 3.7 10*3/uL Low 4.4-11.0 [facility] Bilirubin, totalOrdered By: Keyana Aldana on 01-09-2025 Bilirubin [Mass/Vol] 0.48 mg/dL 0.00-1.30 [facility] CBC W/Diff, Automatedon 12-25 Absolute Lymph 1.37 X10 3/uL Normal 0.83-4.51 [facility] Comment on above: Performed By: #### L 500.2500, L100.0100 #### [facility] [address] [place], [address] Absolute Neut 2.5 X10 3/uL Normal 2.0-7.7 [facility] Comment on above: Performed By: #### L 500.2500, L100.0100 #### [facility] [address] [place], [address] Basophils/100 WBC (Bld) 0.7 % Normal 0-1 [facility] Comment on above: Performed By: #### L 500.2500, L100.0100 #### [facility] [address] [place], [address] Eosinophils/100 WBC (Bld) 0.7 % Normal 0-5 [facility] Comment on above: Performed By: #### L 500.2500, L100.0100 #### [facility] [address] [place], [address] Erythrocyte distribution width (RBC) [Ratio] 13.5 % Normal 11.6-14.6 [facility] Comment on above: Performed By: #### L 500.2500, L100.0100 #### [facility] [address] [place], [address] Hematocrit (Bld) [Volume fraction] 33.5 % Low 40-54 [facility] Comment on above: Performed By: #### L 500.2500, L100.0100 #### [facility] [address] [place], [address] Hemoglobin (Bld) [Mass/Vol] 11.0 g/dL Low 13.0-16.5 [facility] Comment on above: Performed By: #### L 500.2500, L100.0100 #### [facility] [address] [place], [address] IG% 0.200 Normal 0.0-0.9 [facility] Comment on above: Result Comment: IG% - Immature Granulocytes (promyelocytes, myelocytes and metamyelocytes) > 1% indicates that a LEFT SHIFT is Present. Performed By: #### L 500.2500, L100.0100 #### [facility] [address] [place], [address] Lymphocytes/100 WBC (Bld) 32.3 % Normal 19-41 [facility] Comment on above: Performed By: #### L 500.2500, L100.0100 #### [facility] [address] [place], [address] MCH (RBC) [Entitic mass] 32.1 pg High 27.0-32.0 [facility] Comment on above: Performed By: #### L 500.2500, L100.0100 #### [facility] [address] [place], [address] MCHC (RBC) [Mass/Vol] 32.8 g/dL Normal 32-36 [facility] Comment on above: Performed By: #### L 500.2500, L100.0100 #### [facility] [address] [place], [address] MCV (RBC) [Entitic vol] 97.7 fL High 80-94 [facility] Comment on above: Performed By: #### L 500.2500, L100.0100 #### [facility] [address] [place], [address] Monocytes/100 WBC (Bld) 8.3 % Normal 0-10 [facility] Comment on above: Performed By: #### L 500.2500, L100.0100 #### [facility] Laboratory [address] [place], [address] Neutrophils/100 WBC (Bld) 57.8 % Normal 47-70 [facility] Comment on above: Performed By: #### L 500.2500, L100.0100 #### [facility] [address] [place], [address] Nucleated RBC (Bld) [#/Vol] 0 10*3/uL Normal 0-5 [facility] Comment on above: Performed By: #### L 500.2500, L100.0100 #### [facility] [address] [place], [address] Platelet mean volume (Bld) [Entitic vol] 9.5 fL Normal 6.2-12.0 [facility] Comment on above: Performed By: #### L 500.2500, L100.0100 #### [facility] [address] [place], [address] Platelets (Bld) [#/Vol] 153 10*3/uL Normal 150-450 [facility] Comment on above: Performed By: #### L 500.2500, L100.0100 #### [facility] [address] [place], [address] RBC (Bld) [#/Vol] 3.43 10*6/uL Low 4.6-6.2 [facility] Comment on above: Performed By: #### L 500.2500, L100.0100 #### [facility] [address] [place], [address] RDW SD 48.8 fl High 35.1-43.9 [facility] Comment on above: Performed By: #### L 500.2500, L100.0100 #### [facility] [address] [place], [address] WBC (Bld) [#/Vol] 4.2 10*3/uL Low 4.4-11.0 [facility] Comment on above: Performed By: #### L 500.2500, L100.0100 #### [facility] [address] [place], [address] Comprehensive Metabolic Prof ilon 01-09-2025 Albumin [Mass/Vol] 3.6 g/dL Normal 3.4-4.8 [facility] Comment on above: Performed By: #### L 500.2500, L100.0100 #### [facility] [address] [place], [address] Albumin/Globulin [Mass ratio] 2.1 {ratio} Normal 0.9-2.4 [facility] Comment on above: Performed By: #### L 500.2500, L100.0100 #### [facility] [address] [place], [address] ALK PHOS 52 U/L Normal 40-129 [facility] Comment on above: Performed By: #### L 500.2500, L100.0100 #### [facility] [address] [place], [address] ALT [Catalytic activity/Vol] 15 U/L Normal <=46 [facility] Comment on above: Performed By: #### L 500.2500, L100.0100 #### [facility] [address] [place], [address] AST [Catalytic activity/Vol] 20 U/L Normal <=37 [facility] Comment on above: Performed By: #### L 500.2500, L100.0100 #### [facility] [address] [place], [address] Bilirubin [Mass/Vol] 0.48 mg/dL Normal 0.00-1.30 [facility] Comment on above: Performed By: #### L 500.2500, L100.0100 #### [facility] [address] [place], [address] BUN/CRE 25.9 RATIO High 10-20 [facility] Comment on above: Performed By: #### L 500.2500, L100.0100 #### [facility] [address] [place], [address] Calcium [Mass/Vol] 8.6 mg/dL Normal 7.6-11.0 [facility] Comment on above: Performed By: #### L 500.2500, L100.0100 #### [facility] [address] [place], [address] Chloride [Moles/Vol] 108 mmol/L Normal 98-108 [facility] Comment on above: Performed By: #### L 500.2500, L100.0100 #### [facility] [address] [place], [address] CO2 [Moles/Vol] 24.0 mmol/L Normal 21.0-32.0 [facility] Comment on above: Performed By: #### L 500.2500, L100.0100 #### [facility] [address] [place], [address] Creatinine [Mass/Vol] 0.83 mg/dL Normal 0.70-1.20 [facility] Comment on above: Performed By: #### L 500.2500, L100.0100 #### [facility] [address] [place], [address] ECRCL 66.39 ml/min Normal 50-250 [facility] Comment on above: Performed By: #### L 500.2500, L100.0100 #### [facility] [address] [place], [address] GAP 9 Normal 5-15 [facility] Comment on above: Performed By: #### L 500.2500, L100.0100 #### [facility] [address] [place], [address] GFR/1.73 sq M.predicted among non-blacks MDRD (S/P/Bld) [Vol rate/Area] 87 mL/min/{1.73_m2} Normal >60 [facility] Comment on above: Result Comment: mL/m in/1.73m2 CKD-EPI Creatinine Equation (2020) Performed By: #### L 500.2500, L100.0100 #### [facility] [address] [place], [address] Globulin (S) [Mass/Vol] 1.7 g/dL Low 2.2-4.2 [facility] Comment on above: Performed By: #### L 500.2500, L100.0100 #### [facility] [address] [place], [address] Glucose [Mass/Vol] 84 mg/dL Normal 70-99 [facility] Comment on above: Performed By: #### L 500.2500, L100.0100 #### [facility] [address] [place], [address] Potassium [Moles/Vol] 4.0 mmol/L Normal 3.3-5.1 [facility] Comment on above: Performed By: #### L 500.2500, L100.0100 #### [facility] [address] [place], [address] Sodium [Moles/Vol] 141 mmol/L Normal 133-145 [facility] Comment on above: Performed By: #### L 500.2500, L100.0100 #### [facility] [address] [place], [address] T PROT 5.2 g/dL Low 5.9-8.4 [facility] Comment on above: Performed By: #### L 500.2500, L100.0100 #### [facility] [address] [place], [address] Urea nitrogen [Mass/Vol] 22 mg/dL High 4-19 [facility] Comment on above: Performed By: #### L 500.2500, L100.0100 #### [facility] [address] [place], [address] Laboratory - Chemistry and C hemistry - challengeOrdered By: Keyana Aldana 01-09-2025 AST [Catalytic activity/Vol] 20 U/L <38 [facility] Serum globulin measurementOr dered By: Keyana Aldana 01-09-2025 Globulin (S) [Mass/Vol] 1.7 g/dL Low 2.2-4.2 [facility] Serum or plasma alanine shaikh otransferase (ALT) measurementOrdered By: Keyana Aldana 01-09-2025 ALT [Catalytic activity/Vol] 15 U/L <47 [facility] Serum or plasma albumin shon urement (mass/volume)Ordered By: Keyana Aldana 01-09-2025 Albumin [Mass/Vol] 3.6 g/dL 3.4-4.8 [facility] Serum or plasma albumin/glob ulin mass ratioOrdered By: Keyana Katya 01-09-2025 Albumin/Globulin [Mass ratio] 2.1 {ratio} 0.9-2.4 [facility] Serum or plasma alkaline nita sphatase measurementOrdered By: Keyana Aldana 01-09-2025 ALP [Catalytic activity/Vol] 52 U/L 40-129 [facility] Total proteinOrdered By: Kayleen Aldana on 01-09-2025 Protein [Mass/Vol] 5.2 g/dL Low 5.9-8.4 [facility] Vitamin B12on 01-09-2025 Cobalamin (Vitamin B12) [Mass/Vol] 592 pg/mL Normal 180-914 [facility] Comment on above: Performed By: #### L 500.2500, L100.0100 #### [facility] [address] [place], [address] Vitamin B12 ser/plasOrdered By: Keyana Aldana on 01-09-2025 Cobalamin (Vitamin B12) [Mass/Vol] 592 pg/mL 180-914 [facility] 12 Lead EKGon 01-08-2025 12 Lead EKG [facility] [address] [place] [address] 12 Lead EKG 01/08/25 1140 MR#: [id number] Acct: [id number] Name: JAVIER BOND Rep #: [id number] : 1940 84 From: Javier Sam MD Attending Dr: Dr. Christoph Kilgore MD Status : DIS IN Ordering Dr: Hector Baxter MD Date: 01/08/25 Location: [facility] Sex: M C Admitted: 01/08/25 Test Reason : Blood Pressure : */* mmHG Vent. Rate : 56 BPM Atrial Rate : 56 BPM P-R Int : 204 ms QRS Dur : 96 ms QT Int : 436 ms P-R-T Axes : 72 -4 52 degrees QTcB Int : 420 ms Sinus bradycardia Otherwise normal ECG Confirmed by Javier Sam ([id number]), market editor PATRICE SALDANA ([id number]) on 01/11/2025 6:45:38 AM Referred By: DULCE Confirmed By: Javier Sam 01/11/25 0645 Date Javier Sam MD CC: Dr. Hector Baxter MD; Dr. Francisco Bahena MD; Dr. Christoph Kilgore MD Signed Normal [facility] Absolute neutrophil countOrd ered By: Hector Baxter on 01-08-2025 Neutrophils (Bld) [#/Vol] 2.0 10*3/uL 2.0-7.7 [facility] Anion gap in Serum or Plasma Ordered By: Hector Baxter on 01-08-2025 Anion gap [Moles/Vol] 8 mmol/L 02-07 [facility] BUN/creatinine ratioOrdered By: Hector Baxter on 01-08-2025 Urea nitrogen/Creatinine [Mass ratio] 23.2 mg/mg High 07-15 [facility] Basic Metabolic Profile (BMP )on 01-08-2025 BUN/CRE 23.2 RATIO High 07-15 [facility] Comment on above: Performed By: #### L 500.2500, L100.0100 #### [facility] [address] [place], [address] Calcium [Mass/Vol] 9.1 mg/dL Normal 7.6-11.0 [facility] Comment on above: Performed By: #### L 500.2500, L100.0100 #### [facility] [address] [place], [address] Chloride [Moles/Vol] 103 mmol/L Normal 98-108 [facility] Comment on above: Performed By: #### L 500.2500, L100.0100 #### [facility] [address] [place], [address] CO2 [Moles/Vol] 26.8 mmol/L Normal 21.0-32.0 [facility] Comment on above: Performed By: #### L 500.2500, L100.0100 #### [facility] [address] [place], [address] Creatinine [Mass/Vol] 0.88 mg/dL Normal 0.70-1.20 [facility] Comment on above: Performed By: #### L 500.2500, L100.0100 #### [facility] [address] [place], [address] ECRCL 67.31 ml/min Normal 50-250 [facility] Comment on above: Performed By: #### L 500.2500, L100.0100 #### [facility] [address] [place], [address] GAP 8 Normal 5-15 [facility] Comment on above: Performed By: #### L 500.2500, L100.0100 #### [facility] [address] [place], [address] GFR/1.73 sq M.predicted among non-blacks MDRD (S/P/Bld) [Vol rate/Area] 86 mL/min/{1.73_m2} Normal >60 [facility] Comment on above: Result Comment: mL/m in/1.73m2 CKD-EPI Creatinine Equation (2020) Performed By: #### L 500.2500, L100.0100 #### [facility] [address] [place], [address] Glucose [Mass/Vol] 98 mg/dL Normal 70-99 [facility] Comment on above: Performed By: #### L 500.2500, L100.0100 #### [facility] [address] [place], [address] Potassium [Moles/Vol] 4.1 mmol/L Normal 3.3-5.1 [facility] Comment on above: Performed By: #### L 500.2500, L100.0100 #### [facility] [address] [place], [address] Sodium [Moles/Vol] 138 mmol/L Normal 133-145 [facility] Comment on above: Performed By: #### L 500.2500, L100.0100 #### [facility] [address] [place], [address] Urea nitrogen [Mass/Vol] 20 mg/dL High 4-19 [facility] Comment on above: Performed By: #### L 500.2500, L100.0100 #### [facility] [address] [place], [address] Basophil percentageOrdered B y: Hector Baxter on 01-08-2025 Basophils/100 WBC (Bld) 0.7 % 0-1 [facility] Bilirubin Test strip Ql (U)O rdered By: Hector Baxter on 01-08-2025 Bilirubin Ql (U) Negative Negative [facility] CBC W/Diff, Automatedon 12-25 Absolute Lymph 0.69 X10 3/uL Low 0.83-4.51 [facility] Comment on above: Performed By: #### L 500.2500, L100.0100 #### [facility] [address] [place], [address] Absolute Neut 2.0 X10 3/uL Normal 2.0-7.7 [facility] Comment on above: Performed By: #### L 500.2500, L100.0100 #### [facility] [address] [place], [address] Basophils/100 WBC (Bld) 0.7 % Normal 0-1 [facility] Comment on above: Performed By: #### L 500.2500, L100.0100 #### [facility] [address] [place], [address] Eosinophils/100 WBC (Bld) 0.7 % Normal 0-5 [facility] Comment on above: Performed By: #### L 500.2500, L100.0100 #### [facility] [address] [place], [address] Erythrocyte distribution width (RBC) [Ratio] 13.4 % Normal 11.6-14.6 [facility] Comment on above: Performed By: #### L 500.2500, L100.0100 #### [facility] [address] [place], [address] Hematocrit (Bld) [Volume fraction] 35.4 % Low 40-54 [facility] Comment on above: Performed By: #### L 500.2500, L100.0100 #### [facility] [address] [place], [address] Hemoglobin (Bld) [Mass/Vol] 11.7 g/dL Low 13.0-16.5 [facility] Comment on above: Performed By: #### L 500.2500, L100.0100 #### [facility] [address] [place], [address] IG% 0.300 Normal 0.0-0.9 [facility] Comment on above: Result Comment: IG% - Immature Granulocytes (promyelocytes, myelocytes and metamyelocytes) > 1% indicates that a LEFT SHIFT is Present. Performed By: #### L 500.2500, L100.0100 #### [facility] [address] [place], [address] Lymphocytes/100 WBC (Bld) 22.9 % Normal 19-41 [facility] Comment on above: Performed By: #### L 500.2500, L100.0100 #### [facility] [address] [place], [address] MCH (RBC) [Entitic mass] 32.7 pg High 27.0-32.0 [facility] Comment on above: Performed By: #### L 500.2500, L100.0100 #### [facility] [address] [place], [address] MCHC (RBC) [Mass/Vol] 33.1 g/dL Normal 32-36 [facility] Comment on above: Performed By: #### L 500.2500, L100.0100 #### [facility] [address] [place], [address] MCV (RBC) [Entitic vol] 98.9 fL High 80-94 [facility] Comment on above: Performed By: #### L 500.2500, L100.0100 #### [facility] [address] [place], [address] Monocytes/100 WBC (Bld) 8.6 % Normal 0-10 [facility] Comment on above: Performed By: #### L 500.2500, L100.0100 #### [facility] [address] [place], [address] Neutrophils/100 WBC (Bld) 66.8 % Normal 47-70 [facility] Comment on above: Performed By: #### L 500.2500, L100.0100 #### [facility] [address] [place], [address] Nucleated RBC (Bld) [#/Vol] 0 10*3/uL Normal 0-5 [facility] Comment on above: Performed By: #### L 500.2500, L100.0100 #### [facility] [address] [place], [address] Platelet mean volume (Bld) [Entitic vol] 9.0 fL Normal 6.2-12.0 [facility] Comment on above: Performed By: #### L 500.2500, L100.0100 #### [facility] [address] [place], [address] Platelets (Bld) [#/Vol] 146 10*3/uL Low 150-450 [facility] Comment on above: Performed By: #### L 500.2500, L100.0100 #### [facility] [address] [place], [address] RBC (Bld) [#/Vol] 3.58 10*6/uL Low 4.6-6.2 [facility] Comment on above: Performed By: #### L 500.2500, L100.0100 #### [facility] [address] [place], [address] RDW SD 49.3 fl High 35.1-43.9 [facility] Comment on above: Performed By: #### L 500.2500, L100.0100 #### [facility] [address] [place], [address] WBC (Bld) [#/Vol] 3.0 10*3/uL Low 4.4-11.0 [facility] Comment on above: Performed By: #### L 500.2500, L100.0100 #### [facility] [address] [place], [address] Carbon dioxide, total [Moles /volume] in Central venous bloodOrdered By: Hector Baxter on 01-08-2025 CO2 [Moles/Vol] 26.8 mmol/L 21.0-32.0 [facility] Chloride assayOrdered By: Jaison Baxter on 01-08-2025 Chloride [Moles/Vol] 103 mmol/L 98-108 [facility] Emergency Department Summary on 01-08-2025 Emergency Department Summary [facility] Medical Records Department [address] [place] [address] Emergency Department Summary 01/08/25 MR#: [id number] Acct: [id number] Name: JAVIER BOND Rep #: [id number] : 1940 84 From: Hector Baxter MD PCP: Dr. Francisco Bahena MD Status:REG ER Location: ED ADDENDUM by Dr. Pool Lopez MD on 01/08/25 at 1831 Patient was endorsed to me by Dr. Hector Baxter to check the MRI results on this patient that could barely stand secondary to bilateral lower extremity weakness. I reviewed the radiology report of the results of the MRI which show degenerative changes and dextroscoliosis. In discussion at signout, the plan is that given his continued weakness and no need for emergent neurosurgery transfer, that he could be admitted here given his bilateral lower extremity weakness. I will discuss patient with the hospitalist for at least observation. This is for his bilateral lower extremity weakness, and UTI. Patient is in stable condition. 01/08/25 1831 Cosigner Signature (if applicable): cc: Dr. Francisco Bahena MD * Signed HPI History of Present Illness Chief Complaint: Weakness Informant: patient, spouse/S.O. and EMS Narrative Narrative: 84-year-old male about an hour prior to arrival states he was using his walker in his house suddenly his legs felt weak and he felt like he could not support himself anymore. He was using his arms to hold himself up with his walker without falling but he felt like he was going to go down so he was yelling for his who came to help him and states that she found him still standing but barely, holding onto his walker with his arms, and she helped lower him to the ground without injury. He was not able to get up because his legs are too weak, and so EMS was called to bring him to the ED. He denies any other prodromal symptoms; he denies any acute pain although he has chronic low back pain, he states it is unchanged for the past 4 years since his fusion surgery, he denies any abdominal pain, recent illness, dyspnea, lightheadedness, headache. He states chronically with his back, he gets some sciatica down his right leg, may be some mild weakness, but has never had anything like this on both sides. He states the right 1 feels worse as it usually is his "bad side." He denies any numbness. He denies any bowel or bladder dysfunction today. He denies saddle anesthesia or numbness elsewhere. [facility] Medical History Left inguinal hernia Groin pain Inguinal hernia bilateral, non-recurrent Right inguinal hernia History of kidney stones History of hiatal hernia Abdominal pain BPH (benign prostatic hyperplasia) Arthritis History of back problems Hypertension Home Medications ???Medication ???Instructions ???Recorded ???Last Taken ???Type acetaminophen 500 mg tablet 1,000 mg PO PRN Pain 04/03/17 Unkn own History hydrochlorothiazide 12.5 mg capsule 12.5 mg PO DAILY diuretic 04/0301/07/25 History doxycycline hyclate 20 mg tablet 20 mg PO BID infection 03/13/19 History metronidazole 0.75 % topical cream 1 applic topical DAILY skin heal th 07/16/19 01/07/25 History aspirin 81 mg tablet,delayed 81 mg PO QHS heart health 01/28/21 01/07/25 History release (Rika Low Dose Aspirin) multivitamin 1 tab PO DAILY vitamin 05/18/21 History pantoprazole 40 mg tablet,delayed 40 mg PO DAILY reflux 05/03/22 History release d-mannose 1 ea PO DAILY 09/24/23 01/07/25 Hi story dupilumab 300 mg/2 mL subcutaneous 300 mg subcut .COMPLEX skin heal 09/24/23 Unknown History pen injector (Dupixent) lisinopril 5 mg tablet 5 mg PO DAILY blood pressure 09/24 Unknown History Held on 01/08/25. Instructions: MD Ordered BACLOFEN SUPPOSITORY 1 supp OTHER DAILY CONSITPATION Unknown History Lactobacillus acidophilus 10 80 mmu cells PO DAILY 01/08/25 History billion cell capsule (NewFlora) donepezil 5 mg tablet 10 mg PO DAILY 01/08/25 01/07/25 H istory furosemide 20 mg tablet 20 mg PO DAILY 01/08/25 01/07/25 H istory guaifenesin 600 mg tablet, 600 mg PO BID 01/08/25 01/07/25 Hi story extended release 12 hr (Mucinex) melatonin 5 mg tablet 5 mg PO QHS 01/08/25 01/07/25 Hist ory memantine 10 mg tablet 10 mg PO BID 01/08/25 01/07/25 His tory methenamine hippurate 1 gram tablet 1 g PO BID 01/08/25 01/07/25 Hi story plecanatide 3 mg tablet (Trulance) 3 mg PO DAILY 01/08/25 Unknown H istory Held on 01/08/25. Instructions: Ordered polyethylene glycol 3350 17 17 g PO DAILY 01/08/25 01/07/25 Hi story gram/dose oral powder (ClearLax) sertraline 25 mg tablet 25 mg PO DAILY 01/08/25 01/07/25 H istory trazodone 100 mg tablet 100 mg PO QHS 01/08/25 0 (more content not included)... Normal [facility] Eosinophil percentageOrdered By: Hector Baxter on 01-08-2025 Eosinophils/100 WBC (Bld) 0.7 % 0-5 [facility] Epithelial cells.squamous LM Ql (Urine sed)Ordered By: Hector Baxter on 01-08-2025 Epithelial cells.squamous LM.HPF (Urine sed) [#/Area] 0 /[HPF] 0-5 [facility] Erythrocyte distribution wid th (RBC) [Ratio]Ordered By: Hector Baxter on 01-08-2025 Erythrocyte distribution width (RBC) [Entitic vol] 49.3 fL High 35.1-43.9 [facility] Erythrocyte distribution wid th ratioOrdered By: Hector Baxter on 01-08-2025 Erythrocyte distribution width (RBC) [Ratio] 13.4 % 11.6-14.6 [facility] Estimation of creatinine mariam aranceOrdered By: Hector Baxter on 01-08-2025 Estimated Creatinine Clearance Calc 67.31 ml/min 50-250 [facility] GFR/1.73 sq M.predicted benedict g non-blacks MDRD (S/P/Bld) [Vol rate/Area]Ordered By: Hector Baxter on 01-08-2025 Estimated GFR (MDRD) Non-Af Amer 86 >60 [facility] Comment on above: mL/min/1.73m2 CKD-EP I Creatinine Equation (2020) Glucose Ql (U)Ordered By: Jaison Baxter on 01-08-2025 Urine Glucose (UA) Normal mg/dl Normal [facility] H AND P Exam - Hospitaliston 01-08-2025 H&P Exam - Hospitalist [facility] Medical Records Department [address] [place] [address] H P Exam - Hospitalist 01/08/25 1851 MR#: [id number] Acct: [id number] Name: JAVIER BOND Rep #: [id number] : 1940 84 From: Keyana Aldana MD PCP: Dr. Francisco Bahena MD Status:REG ER Location: ED HPI - General General Date of Admission: 01/08/25 Date of Service: 01/08/25 Chief Complaint: Weakness, debility. 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 He has chronic low back pain and notes that is unchanged since his prior fusion 4 years prior. He denies any recent illnesses. He does state that he chronically has some sciatic discomfort down his right lower extremity and mild weakness but this is similar to previous and unchanged. He denies any change in bowel or bladder function nor any saddle anesthesia or paresthesia. Workup in the ED included T97.9, heart rate 57, BP 116/70, respiratory rate 18, 100% on room air with most recent repeat vitals heart rate 55, BP 138/78, respiratory rate 17, 99% on room air, CBC with WBC 3.0, hemoglobin 0.7, MCV 98.9, platelet 146 with lymphopenia, BMP with BUN/creatinine 20/0.88, GFR 86, initial troponin 23, repeat delta 23 and 4-hour 26, urine cloudy, specifically 1.010, protein 15, occult blood 25, leukocyte Estrace 500 with urine RBCs 5-10, urine WBCs 50-100 with 3+ urine bacteria, MRI of the lumbar spine with postsurgical changes, dextroscoliosis, degenerative disc disease, plain film of the lumbar spine with status post laminectomy and fusion at L3-L4, L4-L5 and L5-S1 levels with prosthetic disc placement, dextroconvex scoliosis. From review of previous records 09/10/2023 patient did have an E. coli urinary tract infection with associated bacteremia at that time currently sensitive to Rocephin, only agent and was resistant to was ampicillin, and sensitive to Unasyn at that time. In the ED patient administered Rocephin 1 g IV x 1. PFSH Medical History Anxiety and depression HLD (hyperlipidemia) CKD (chronic kidney disease), stage II Dementia Left inguinal hernia Groin pain Inguinal hernia bilateral, non-recurrent Right inguinal hernia History of kidney stones History of hiatal hernia Abdominal pain BPH (benign prostatic hyperplasia) Arthritis History of back problems Hypertension Medical History no medical history Home Medications ???Medication ???Instructions ???Recorded ???Last Taken ???Type acetaminophen 500 mg tablet 1,000 mg PO PRN Pain 04/03/17 Unkn own History hydrochlorothiazide 12.5 mg capsule 12.5 mg PO DAILY diuretic 04/0301/07/25 History doxycycline hyclate 20 mg tablet 20 mg PO BID infection 03/13/19 History metronidazole 0.75 % topical cream 1 applic topical DAILY skin heal th 07/16/19 01/07/25 History aspirin 81 mg tablet,delayed 81 mg PO QHS heart health 01/28/21 01/07/25 History release (Rika Low Dose Aspirin) multivitamin 1 tab PO DAILY vitamin 05/18/21 History pantoprazole 40 mg tablet,delayed 40 mg PO DAILY reflux 05/03/22 History release d-mannose 1 ea PO DAILY 09/24/23 01/07/25 Hi story dupilumab 300 mg/2 mL subcutaneous 300 mg subcut .COMPLEX skin heal 09/24/23 Unknown History pen injector (Dupixent) lisinopril 5 mg tablet 5 mg PO DAILY blood pressure 09/24 Unknown History Held on 01/08/25. Instructions: Ordered BACLOFEN SUPPOSITORY 1 supp OTHER DAILY CONSITPATION Unknown History Lactobacillus acidophilus 10 80 mmu cells PO DAILY 01/08/25 History billion cell capsule (NewFlora) donepezil 5 mg tablet 10 mg PO DAILY 01/08/25 01/07/25 H istory furosemide 20 mg tablet 20 mg PO DAILY 01/08/25 01/07/25 H istory guaifenesin 600 mg tablet, 600 mg PO BID 01/08/25 01/07/25 Hi story extended release 12 hr (Mucinex) melatonin 5 mg tablet 5 mg PO QHS 01/08/25 01/07/25 Hist ory memantine 10 mg tablet 10 mg PO BID 01/08/25 01/07/25 His tory methenamine hippurate 1 gram tablet 1 g PO BID 04/15/25 04/14/25 Hi story plecanatide 3 mg tablet (Trulance) 3 mg PO DAILY 01/08/25 Unknown H istory Held on 01/08/25. Instructions: Ordered polyethylene glycol 33 (more content not included)... Normal [facility] Hematocrit Auto (Bld) [Volum e fraction]Ordered By: Hector Baxter on 01-08-2025 Hematocrit (Bld) [Volume fraction] 35.4 % Low 40-54 [facility] Hemoglobin measurementOrdere d By: Hector Baxter on 01-08-2025 Hemoglobin (Bld) [Mass/Vol] 11.7 g/dL Low 13.0-16.5 [facility] Immature granulocytes/100 WB C Auto (Bld)Ordered By: Hector Baxter on 01-08-2025 Immature granulocytes/100 WBC (Bld) 0.300 % 0.0-0.9 [facility] Comment on above: IG% - Immature Granu locytes (promyelocytes, myelocytes and metamyelocytes) > 1% indicates that a LEFT SHIFT is Present. Ketones Test strip Ql (U)Ord ered By: Hector Baxter on 01-08-2025 Ketones Ql (U) Negative Negative [facility] L499.0042on 01-08-2025 Trop T High Sen 23 ng/L High <=22 [facility] Comment on above: Performed By: #### L 500.2500, L100.0100 #### [facility] [address] [place], [address] L499.0043on 01-08-2025 Trop T High Sen 26 ng/L High <=22 [facility] Comment on above: Performed By: #### L 500.2500, L100.0100 #### [facility] [address] [place], [address] L501.4021on 01-08-2025 Trop T High Sen 23 ng/L High <=22 [facility] Comment on above: Performed By: #### L 501.4021 #### [facility] [address] [place], [address] Lumbar Spine 2 or 3 Viewson 01-08-2025 Lumbar Spine 2 or 3 Views [facility] Imaging Services [address] [place], [place] [address] Lumbar Spine 2 or 3 Views MR#: [id number] Acct: [id number] Name: JAVIER BOND Rep #: [id number] : 1940 M 84 From: Qasim hoyos MD PCP: Dr. Francisco Bahena MD Status: REG ER Study: Lumbar Spine 2 or 3 Views Date of Exam: Exam# [id number] Ordering Dr: Hector Baxter MD PROCEDURE: LUMBAR SPINE 2 OR 3 VIEWS 01/08/2025 REASON FOR EXAM: BACK PAIN, BLE WEAKNESS TECHNIQUE: 2 view(s) of the lumbar spine COMPARISON: None FINDINGS: Vertebrae: The patient is status post laminectomy and intrapedicular screw and randy fixation at the L3-L4, L4-L5 and L5-S1 levels. Spondylosis. Discs: Prosthetic disc placement. Disc space narrowing. Alignment: Dextroscoliosis. Other: Fecal material is seen in the colon. RAD/Lumbar Spine 2 or 3 Views IMPRESSION: ADVANCED DEGENERATIVE CHANGES OF THE LUMBAR SPINE. Status post laminectomy and fusion at the L3-L4, L4-L5 and L5-S1 levels with prosthetic disc placement. Dextroconvex scoliosis. Reading Location: [facility]- CC: Dr. Hector Baxter MD; Dr. Francisco Bahena MD 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: Signed Normal [facility] Lymphocytes Auto (Unsp spec) [#/Vol]Ordered By: Hector Baxter on 01-08-2025 Lymphocytes (Bld) [#/Vol] 0.69 10*3/uL Low 0.83-4.51 [facility] Lymphocytes/100 WBC Auto (Un sp spec)Ordered By: Hector Baxter on 01-08-2025 Lymphocytes/100 WBC (Bld) 22.9 % 19-41 [facility] MCV (mean corpuscular volume ) determinationOrdered By: Hector Baxter on 01-08-2025 MCV (RBC) [Entitic vol] 98.9 fL High 80-94 [facility] Magnesium measurement (mass/ volume)Ordered By: Keyana Aldana on 01-08-2025 Magnesium (Unsp spec) [Mass/Vol] 2.0 mg/dL 1.5-2.2 [facility] Magnesium [Mass/Vol] 2.0 mg/dL Normal 1.5-2.2 [facility] Comment on above: Order Comment: Comme nts: may add to ED labs Performed By: #### L 500.2500, L100.0100 #### [facility] [address] [place], [place], [address] Magnetic resonance imaging r eportOrdered By: Miguel A Schwartz on 01-08-2025 Study report [facility] Imaging Services [address] [place], [place] [address] Spine Lumbar (Routine) MR#: [id number] Acct: [id number] Name: JAVIER BOND Rep #: [id number] : 1940 M 84 From: Abdulaziz Schwartz MD PCP: Dr. Francisco Bahena MD Status: REG ER Study:Spine Lumbar (Routine) Date of Exam: 01/08/25 Exam# [id number] Ordering Dr: Casey Baxter MD PROCEDURE: SPINE LUMBAR (ROUTINE) 01/08/2025 REASON FOR EXAM: PAIN, SUDDEN BLE WEAKNESS TECHNIQUE: Multiplanar multisequential imaging was performed without IV contrast administration. COMPARISON: X-ray earlier today FINDINGS: Vertebrae: No acute fracture. Alignment: Moderate dextroscoliosis centered at centered at L2. Status post transpedicular fixation from L3-S1 with anatomic alignment. Conus Medullaris: T12/L1 L1-2: 5 mm of retrolisthesis of L1 on L2 with a mild broad disc protrusion produces moderate spinal stenosis and moderate bilateral neural foraminal stenosis. L2-3: 2 mm retrolisthesis of L2 on L3 with a mild bilobed disc protrusion produces moderate spinal stenosis and moderate bilateral neural foraminal stenosis. L3-4: Status post posterior decompression and transpedicular fixation with anatomic alignment and no spinal stenosis or neural foraminal stenosis. L4-5: Status post posterior decompression and transpedicular fixation with anatomic alignment and no spinal stenosis or neural foraminal stenosis. L5-S1: Status post posterior decompression and transpedicular fixation with anatomic alignment no spinal stenosis or neural foraminal stenosis. Sacrum: Unremarkable. MRI/Spine Lumbar (Routine) IMPRESSION: Postsurgical changes, dextroscoliosis, and degenerative disc disease as described above. Reading Location: [facility] CC: Dr. Hector Baxter MD; Dr. Francisco Bahena MD ~ 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: Signed [facility] Mean corpuscular hemoglobin (MCH) determinationOrdered By: Hector Baxter on 01-08-2025 MCH (RBC) [Entitic mass] 32.7 pg High 27.0-32.0 [facility] Mean corpuscular hemoglobin concentration (MCHC) determinationOrdered By: Hector Baxter on 01-08-2025 MCHC (RBC) [Mass/Vol] 33.1 g/dL 32-36 [facility] Mean platelet volume determi nationOrdered By: Hector Baxter on 01-08-2025 Platelet mean volume (Bld) [Entitic vol] 9.0 fL 6.2-12.0 [facility] Microscopic analysis of urin e for red blood cells (RBC)Ordered By: Hcetor Baxter on 01-08-2025 Microscopic analysis of urine for red blood cells (RBC) 5-10 SEEN /hpf 0-5 [facility] Urine RBC 5-10 SEEN /hpf 0-5 [facility] Monocyte percentageOrdered B y: Hector Baxter on 01-08-2025 Monocytes/100 WBC (Bld) 8.6 % 0-10 [facility] Mucus LM Ql (Urine sed)Order ed By: Hector Baxter on 01-08-2025 Mucus Ql (Urine sed) 0 SEEN /hpf [facility] Neutrophil percentageOrdered By: Hector Baxter on 01-08-2025 Neutrophils/100 WBC (Bld) 66.8 % 47-70 [facility] Nitrite Test strip Ql (U)Ord ered By: Hector Baxter on 01-08-2025 Nitrite Ql (U) Negative Negative [facility] Nucleated red blood cell per centageOrdered By: Hector Baxter on 01-08-2025 Nucleated RBC/100 WBC (Bld) [Ratio] 0 % 0-5 [facility] Platelet countOrdered By: Jaison Baxter on 01-08-2025 Platelets (Bld) [#/Vol] 146 10*3/uL Low 150-450 [facility] Potassium (Unsp spec) [Mass/ Vol]Ordered By: Hector Baxter on 01-08-2025 Potassium [Moles/Vol] 4.1 mmol/L 3.3-5.1 [facility] Protein Test strip Ql (U)Ord ered By: Hector Baxter on 01-08-2025 Protein Ql (U) 15 mg/dl High Negative [facility] RBC Auto (Bld) [#/Vol]Ordere d By: Hector Baxter on 01-08-2025 RBC (Bld) [#/Vol] 3.58 10*6/uL Low 4.6-6.2 [facility] Serum creatinine measurement (mass/volume)Ordered By: Hector Baxter on 01-08-2025 Creatinine [Mass/Vol] 0.88 mg/dL 0.70-1.20 [facility] Serum glucose measurement (m ass/volume)Ordered By: Hector Baxter on 01-08-2025 Glucose [Mass/Vol] 98 mg/dL 70-99 [facility] Serum or plasma calcium shon urement (mass/volume)Ordered By: Hector Baxter on 01-08-2025 Calcium [Mass/Vol] 9.1 mg/dL 7.6-11.0 [facility] Serum or plasma urea nitroge n measurement (mass/volume)Ordered By: Hector Baxter on 01-08-2025 Urea nitrogen [Mass/Vol] 20 mg/dL High 4-19 [facility] Sodium levelOrdered By: Kane Baxter on 01-08-2025 Sodium [Moles/Vol] 138 mmol/L 133-145 [facility] Spine Lumbar (Routine)on Spine Lumbar (Routine) [facility] Imaging Services [address] [place], [place] [address] Spine Lumbar (Routine) MR#: [id number] Acct: [id number] Name: JAVIER BOND Rep #: [id number] : 1940 M 84 From: Miguel A Schwartz MD PCP: Dr. Francisco Bahena MD Status: REG ER Study: Spine Lumbar (Routine) Date of Exam: 01/08/25 Exam# [id number] Ordering Dr: Hector Baxter MD PROCEDURE: SPINE LUMBAR (ROUTINE) 01/08/2025 REASON FOR EXAM: PAIN, SUDDEN BLE WEAKNESS TECHNIQUE: Multiplanar multisequential imaging was performed without IV contrast administration. COMPARISON: X-ray earlier today FINDINGS: Vertebrae: No acute fracture. Alignment: Moderate dextroscoliosis centered at centered at L2. Status post transpedicular fixation from L3-S1 with anatomic alignment. Conus Medullaris: T12/L1 L1-2: 5 mm of retrolisthesis of L1 on L2 with a mild broad disc protrusion produces moderate spinal stenosis and moderate bilateral neural foraminal stenosis. L2-3: 2 mm retrolisthesis of L2 on L3 with a mild bilobed disc protrusion produces moderate spinal stenosis and moderate bilateral neural foraminal stenosis. L3-4: Status post posterior decompression and transpedicular fixation with anatomic alignment and no spinal stenosis or neural foraminal stenosis. L4-5: Status post posterior decompression and transpedicular fixation with anatomic alignment and no spinal stenosis or neural foraminal stenosis. L5-S1: Status post posterior decompression and transpedicular fixation with anatomic alignment no spinal stenosis or neural foraminal stenosis. Sacrum: Unremarkable. MRI/Spine Lumbar (Routine) IMPRESSION: Postsurgical changes, dextroscoliosis, and degenerative disc disease as described above. Reading Location: [facility] CC: Dr. Hector Baxter MD; Dr. Francisco Bahena MD 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: Signed Normal [facility] Squamous epithelial cells de tection in urine sediment by light microscopyOrdered By: Hector Baxter on 01-08-2025 Epithelial cells.squamous LM Ql (Urine sed) 0-5 SEEN /hpf 0-5 [facility] Troponin T.cardiac High sens itivity method [Mass/Vol]Ordered By: Hector Baxter on 01-08-2025 Troponin T High Sensitivity 4 Hour 26 ng/L High <22 [facility] Troponin T High Sensitivity 2 Hour 23 ng/L High <22 [facility] Troponin T High Sensitivity 23 ng/L High <22 [facility] Troponin T.cardiac [Mass/vol ume] in Serum or Plasma by High sensitivity methodOrdered By: Hector Baxter on 01-08-2025 Troponin T.cardiac High sensitivity method [Mass/Vol] 26 ng/L High <22 [facility] Troponin T.cardiac High sensitivity method [Mass/Vol] 23 ng/L High <22 [facility] Troponin T.cardiac High sensitivity method [Mass/Vol] 23 ng/L High <22 [facility] Urinalysis, Completeon 01-08 BACTERIA 3+ /hpf Normal None Seen [facility] Comment on above: Order Comment: VEENA CTOR TO SPECIFY Performed By: #### L 500.2500, L100.0100 #### [facility] [address] [place], [address] EPI,SQUAMOUS 0-5 SEEN Normal 0-5 [facility] Comment on above: Order Comment: VEENA CTOR TO SPECIFY Performed By: #### L 500.2500, L100.0100 #### [facility] [address] [place], [address] RBC 5-10 SEEN Normal 0-5 [facility] Comment on above: Order Comment: VEENA CTOR TO SPECIFY Performed By: #### L 500.2500, L100.0100 #### [facility] [address] [place], [address] WBC 50-100 SEEN Normal 0-5 [facility] Comment on above: Order Comment: VEENA CTOR TO SPECIFY Performed By: #### L 500.2500, L100.0100 #### [facility] [address] [place], [address] Mucus Ql (Urine sed) 0 SEEN Normal [facility] Comment on above: Order Comment: VEENA CTOR TO SPECIFY Performed By: #### L 500.2500, L100.0100 #### [facility] [place], [address] Urine blood detectionOrdered By: Hector Baxetr on 01-08-2025 Urine Occult Blood 25 /ul High Negative [facility] Urine clarityOrdered By: Sofía Baxter on 01-08-2025 Clarity (U) Sl. Cloudy Clear [facility] Urine color determinationOrd ered By: Hector Baxter on 01-08-2025 Color (U) Yellow Yellow [facility] Urine cultureOrdered By: Sofía Baxter on 01-08-2025 Bacteria identified Cx Nom (U) ESBL Escherichia coli Abnormal [facility] Urine glucose detectionOrder ed By: Hector Baxter on 01-08-2025 Glucose Ql (U) Normal mg/dl Normal [facility] Urine leukocyte esterase det ection by dipstickOrdered By: Hector Baxter on 01-08-2025 Leukocyte esterase Test strip Ql (U) 500 /ul High Negative [facility] Urine pHOrdered By: Hector Baxter on 01-08-2025 pH (U) 7.0 [pH] 5.0 - 8.0 [facility] Urine sediment bacteria coun t by microscopy (number/high power field)Ordered By: Hector Baxter on 01-08-2025 Bacteria LM.HPF (Urine sed) [#/Area] 3 /[HPF] None Seen [facility] Urine specific gravity measu rementOrdered By: Hector Baxter on 01-08-2025 Specific gravity (U) [Rel density] 1.010 1.002-1.030 [facility] Urine urobilinogen measureme ntOrdered By: Hector Baxter on 01-08-2025 Urobilinogen Ql (U) Normal mg/dl Normal [facility] Urobilinogen Ql (U)Ordered B y: Hector Baxter on 01-08-2025 Urine Urobilinogen Normal mg/dl Normal [facility] White blood cell (WBC) count Ordered By: Hector Baxter on 01-08-2025 WBC (Bld) [#/Vol] 3.0 10*3/uL Low 4.4-11.0 [facility] White blood cell countOrdere d By: Hector Baxter on 01-08-2025 Urine WBC 50-100 SEEN /hpf 0-5 [facility] White blood cell count 50-100 SEEN /hpf 0-5 [facility] UA DIP, URINE (POC)on 2024 BILIRUBIN UA (POCT) Negative Negative [facility] CLARITY UA (POCT) Cloudy [facility] COLOR UA (POCT) Yellow [facility] GLUCOSE UA (POCT) Negative Negative mg/dL [facility] Hemoglobin Ql (U) Negative Negative [facility] Interpretation and review of laboratory results Abnormal [facility] KETONE UA (POCT) Negative Negative mg/dL [facility] LEUKOCYTES UA (POCT) Moderate Abnormal Negative [facility] NITRITE UA (POCT) Negative Negative [facility] PH UA (POCT) 5.5 4.5 - 8.0 [facility] Protein Ql (U) Negative Negative mg/dL [facility] SPECIFIC GRAVITY UA (POCT) <=1.005 Abnormal 1.005 - 1.030 [facility] UROBILINOGEN UA (POCT) 0.2 Betsy l E.U./dL [facility] Location:[facility], [address] [place] [address], [address] [place] [address] POINT OF CARE [facility] XR ABDOMEN 3V KUB W/OBLIQUES on 12-27-2024 XR ABDOMEN 3V KUB W/OBLIQUES Normal [facility] ANORECTAL MANOMET Frida 12-19-2024 The sensitive examination was discussed with the Patient or Patient's Authorized Agricultural Science Professor. As applicable, any other physician, advance practice provider, medical student, or other health professional student that will be observing or involved in the sensitive examination for educational or training purposes was discussed with the Patient or Authorized Agricultural Science Professor. The Patient or Authorized Agricultural Science Professor has agreed to proceed with the sensitive examination. (Sensitive examination includes inspection and/or palpation of the breasts, pelvis, prostate and anorectal regions) Reason for testing: constipation and straining to defecate Ileoanal pouch: No Anorectal Manometry Testing: Strength: Anorectal manometry was performed. Average Pressure Interpretation Rest: 44 mmHg This is within normal range. Normal range is 35-50 mmHg. Squeeze: 133 mmHg This is well above normal range. Normal range is 75 - 100 mmHg. There is appropriate incremental change between resting and squeeze pressures which can indicate good pelvic floor movement with squeeze. Sensory: Sensation Volume First sensation : 12 mL / Normal Range: 40-80 mL First urge to defecate: 46 mL / Normal Range: 80-120 mL Maximum tolerable volume: 60 mL / Normal Range: 120-180 mL Recto-anal inhibitory reflex: yes Balloon expulsion: no This exhibit hyperacute rectal sensation with at least 2/3 sensory tests. A recto-anal inhibitory reflex (RAIR) was present. This is a normal reflex. EMG Recruitment: EMG recruitment was performed. The patient shows a normal increase in activity with squeeze, and a paradoxic increase in activity with valsalva. This indicates abnormal pelvic floor movement, which can be indicative of poor pelvic floor coordination secondary to pelvic floor non-relaxation / dyssynergia. Please see colorectal pelvic floor consult note for recommended treatment plan. Daniela Noel APRN.TIME SIGNAL WIRER I have reviewed, verified, and confirmed the results of anorectal manometry, rectal sensation, tone and compliance testing and EMG testing. I agree with the impression as written above. Nadia Viera MD Pelvic Floor Colon & Rectal Surgery [facility] ANORECTAL MANOMET RYOrdered By: Nadia Viera on 12-19-2024 [facility] Work Phone: Radiology Study observation (narrative) [facility] Work Phone: CNOVon 12-19-2024 CNOV Normal [facility] HISTORY PHYSICALon 5 HISTORY PHYSICAL Normal [facility] Bacteria Ur Culton 5 Bacteria identified Cx Nom (U) Abnormal [facility] Comment on above: Performed By: #### 6 30-4 ####[facility] LABCLIA [id number] [address] [place] CNOVSPon 12-14-2024 CNOVSP Normal [facility] CBC W Auto Differential pane l (Bld)on 12-12-2024 Basophils (Bld) [#/Vol] 10*3/uL Normal <0.11 C [facility] Comment on above: Order Comment: Speci men Type: BLOOD SPECIMENOrdering Facility: [facility] Address: [address] [place] [address] Performed By: #### 5 7021-8 ####[facility] YONATHANADRIANOLIA [id number] [place] [address] [place] Basophils/100 WBC (Bld) 0.5 % Normal C [facility] Comment on above: Order Comment: Speci men Type: BLOOD SPECIMENOrdering Facility: [facility] Address: [address] [place] [address] Performed By: #### 5 7021-8 ####[facility] [id number] [place] [address] [place] Differential cell count method Nom (Bld) Auto Normal [facility] Comment on above: Order Comment: Speci men Type: BLOOD SPECIMENOrdering Facility: [facility] Address: [address] [place] [address] Performed By: #### 5 7021-8 ####[facility] [id number] [place] [address] [place] Eosinophils (Bld) [#/Vol] 0.03 10*3/uL Normal <0.46 [facility] Comment on above: Order Comment: Speci men Type: BLOOD SPECIMENOrdering Facility: [facility] Address: [address] [place] [address] Performed By: #### 5 7021-8 ####[facility]ITALWNCLIA [id number] [place] [address] [place] Eosinophils/100 WBC (Bld) 0.8 % Normal [facility] Comment on above: Order Comment: Speci men Type: BLOOD SPECIMENOrdering Facility: [facility] Address: [address] [place] [address] Performed By: #### 5 7021-8 ####[facility]ENTERWCRYSTALLIA [id number] [place] [address] [place] Erythrocyte distribution width (RBC) [Ratio] 13.9 % Normal 11.5-15.0 [facility] Comment on above: Order Comment: Speci men Type: BLOOD SPECIMENOrdering Facility: [facility] Address: [address] [place] [address] Performed By: #### 5 7021-8 ####[facility] [id number] [place] [address] [place] Hematocrit (Bld) [Volume fraction] 38.7 % Low 39.0-51.0 [facility] Comment on above: Order Comment: Speci men Type: BLOOD SPECIMENOrdering Facility: [facility] Address: [address] [place] [address] Performed By: #### 5 7021-8 ####[facility] [id number] [place] [address] [place] Hemoglobin (Bld) [Mass/Vol] 12.5 g/dL Low 13.0-17.0 [facility] Comment on above: Order Comment: Speci men Type: BLOOD SPECIMENOrdering Facility: [facility] Address: [address] [place] [address] Performed By: #### 5 7021-8 ####[facility] [id number] [place] [address] [place] Immature granulocytes (Bld) [#/Vol] 10*3/uL Normal <0.10 [facility] Comment on above: Order Comment: Speci men Type: BLOOD SPECIMENOrdering Facility: [facility] Address: [address] [place] [address] Performed By: #### 5 7021-8 ####[facility]ITAL[facility]CLIA [id number] [place] [address] [place] Immature granulocytes/100 WBC (Bld) 0.3 % Normal [facility] Comment on above: Order Comment: Speci men Type: BLOOD SPECIMENOrdering Facility: [facility] Address: [address] [place] [address] Performed By: #### 5 7021-8 ####[facility] [id number] [place] [address] [place] Lymphocytes (Bld) [#/Vol] 1.38 10*3/uL Normal 1.00-4.00 [facility] [facility] Comment on above: Order Comment: Speci men Type: BLOOD SPECIMENOrdering Facility: [facility] Address: [address] [place] [address] Performed By: #### 5 7021-8 ####[facility] [id number] [place] [address] [place] Lymphocytes/100 WBC (Bld) 36.0 % Normal [facility] Comment on above: Order Comment: Speci men Type: BLOOD SPECIMENOrdering Facility: [facility] Address: [address] [place] [address] Performed By: #### 5 7021-8 ####[facility] [id number] [place] [address] [place] MCH (RBC) [Entitic mass] 32.0 pg Normal 26.0-34.0 [facility] Comment on above: Order Comment: Speci men Type: BLOOD SPECIMENOrdering Facility: [facility] Address: [address] [place] [address] Performed By: #### 5 7021-8 ####[facility] [id number] [place] [address] [place] MCHC (RBC) [Mass/Vol] 32.3 g/dL Normal 30.5-36.0 [facility] Comment on above: Order Comment: Speci men Type: BLOOD SPECIMENOrdering Facility: [facility] Address: [address] [place] [address] Performed By: #### 5 7021-8 ####[facility] [id number] [place] [address] [place] MCV (RBC) [Entitic vol] 99.0 fL Normal 80.0-100.0 [facility] Comment on above: Order Comment: Speci men Type: BLOOD SPECIMENOrdering Facility: [facility] Address: [address] [place] [address] Performed By: #### 5 7021-8 ####[facility] [id number] [place] [address] [place] Monocytes (Bld) [#/Vol] 0.35 10*3/uL Normal <0.87 [facility] Comment on above: Order Comment: Speci men Type: BLOOD SPECIMENOrdering Facility: [facility] Address: [address] [place] [address] Performed By: #### 5 7021-8 ####[facility]ITALN[facility] [id number] [place] [address] [place] Monocytes/100 WBC (Bld) 9.1 % Normal C [facility] Comment on above: Order Comment: Speci men Type: BLOOD SPECIMENOrdering Facility: [facility] Address: [address] [place] [address] Performed By: #### 5 7021-8 ####[facility]ITALNCLIA [id number] [place] [address] [place] Neutrophils (Bld) [#/Vol] 2.04 10*3/uL Normal 1.45-7.50 [facility] Comment on above: Order Comment: Speci men Type: BLOOD SPECIMENOrdering Facility: [facility] Address: [address] [place] [address] Performed By: #### 5 7021-8 ####[facility] YONATHANWCRYSTALLIA [id number] [place] [address] [place] Neutrophils/100 WBC (Bld) 53.3 % Normal [facility] Comment on above: Order Comment: Speci men Type: BLOOD SPECIMENOrdering Facility: [facility] Address: [address] [place] [address] Performed By: #### 5 7021-8 ####[facility] YONATHANPORTLANDCASEYA [id number] [place] [address] [place] Nucleated RBC (Bld) [#/Vol] 10*3/uL Normal <0.01 [facility] Comment on above: Order Comment: Speci men Type: BLOOD SPECIMENOrdering Facility: [facility] Address: [address] [place] [address] Performed By: #### 5 7021-8 ####[facility] [id number] [place] [address] [place] Nucleated RBC/100 WBC (Bld) [Ratio] 0.0 /100 WBC Normal [facility] Comment on above: Order Comment: Speci men Type: BLOOD SPECIMENOrdering Facility: [facility] Address: [address] [place] [address] Performed By: #### 5 7021-8 ####[facility] [id number] [place] [address] [place] Platelet mean volume (Bld) [Entitic vol] 9.5 fL Normal 9.0-12.7 [facility] Comment on above: Order Comment: Speci men Type: BLOOD SPECIMENOrdering Facility: [facility] Address: [address] [place] [address] Performed By: #### 5 7021-8 ####[facility]ITALLIA [id number] [place] [address] [place] Platelets (Bld) [#/Vol] 188 10*3/uL Normal 150-400 [facility] Comment on above: Order Comment: Speci men Type: BLOOD SPECIMENOrdering Facility: [facility] Address: [address] [place] [address] Performed By: #### 5 7021-8 ####[facility]ITALNCLIA [id number] [place] [address] [place] RBC (Bld) [#/Vol] 3.91 10*6/uL Low 4.20-6.00 [facility] Comment on above: Order Comment: Speci men Type: BLOOD SPECIMENOrdering Facility: [facility] Address: [address] [place] [address] Performed By: #### 5 7021-8 ####[facility]ITALNCLIA [id number] [place] [address] [place] WBC (Bld) [#/Vol] 3.83 10*3/uL Normal 3.70-11.00 [facility] Comment on above: Order Comment: Speci men Type: BLOOD SPECIMENOrdering Facility: [facility] Address: [address] [place] [address] Performed By: #### 5 7021-8 ####[facility]ITALL[facility] [id number] [place] [address] [place] Comprehensive metabolic 2000 panelon 12-12-2024 Albumin [Mass/Vol] 4.4 g/dL Normal 3.9-4.9 [facility] Comment on above: Order Comment: Speci men Type: BLOOD SPECIMENOrdering Facility: [facility] Address: [address] [place] [address] Performed By: #### 3 016-3, 55371-7, LIPNF, 93639-6 ####[facility] LABCLIA [id number] [place] [address] [place] ALP [Catalytic activity/Vol] 69 U/L Normal 38-113 [facility] Comment on above: Order Comment: Speci men Type: BLOOD SPECIMENOrdering Facility: [facility] Address: [address] [place] [address] Performed By: #### 3 016-3, 65605-0, LIPNF, 43046-9 ####[facility] LABCLIA [id number] [place] [address] [place] ALT [Catalytic activity/Vol] 20 U/L Normal 10-54 [facility] Comment on above: Order Comment: Speci men Type: BLOOD SPECIMENOrdering Facility: [facility] Address: [address] [place] [address] Performed By: #### 3 016-3, 56986-2, LIPNF, 86885-7 ####[facility] LABCLIA [id number] [place] [address] [place] Anion gap [Moles/Vol] 10 mmol/L Normal 8-15 [facility] Comment on above: Order Comment: Speci men Type: BLOOD SPECIMENOrdering Facility: [facility] Address: [address] [place] [address] Performed By: #### 3 016-3, 61540-0, LIPNF, 88523-3 ####[facility] LABCLIA [id number] [place] [address] [place] AST [Catalytic activity/Vol] 19 U/L Normal 14-40 [facility] Comment on above: Order Comment: Speci men Type: BLOOD SPECIMENOrdering Facility: [facility] Address: [address] [place] [address] Performed By: #### 3 016-3, 22700-7, LIPNF, 89975-3 ####[facility] LABCLIA [id number] [address] [address] [place] Bilirubin [Mass/Vol] 0.6 mg/dL Normal 0.2-1.3 [facility] Comment on above: Order Comment: Speci men Type: BLOOD SPECIMENOrdering Facility: [facility] Address: [address] [place], [place] [address] Performed By: #### 3 016-3, 84559-7, LIPNF, 56840-2 ####[facility] LABCLIA [id number] [address] [address] [place] Calcium [Mass/Vol] 9.6 mg/dL Normal 8.5-10.2 [facility] Comment on above: Order Comment: Speci men Type: BLOOD SPECIMENOrdering Facility: [facility] Address: [address] [place] [address] Performed By: #### 3 016-3, 54488-6, LIPNF, 36435-4 ####[facility] LABCLIA [id number] [address] [address] [place] Chloride [Moles/Vol] 102 mmol/L Normal 98-107 [facility] Comment on above: Order Comment: Speci men Type: BLOOD SPECIMENOrdering Facility: [facility] Address: [address] [place], [place] [address] Performed By: #### 3 016-3, 60656-1, LIPNF, 78585-8 ####[facility] LABCLIA [id number] [address] [address] [place] CO2 [Moles/Vol] 27 mmol/L Normal 22-30 [facility] Comment on above: Order Comment: Speci men Type: BLOOD SPECIMENOrdering Facility: [facility] Address: [address] [place], [place] [address] Performed By: #### 3 016-3, 53549-3, LIPNF, 20210-4 ####[facility] LABCLIA [id number] [address] [address] [place] Creatinine [Mass/Vol] 0.95 mg/dL Normal 0.73-1.22 [facility] Comment on above: Order Comment: Speci men Type: BLOOD SPECIMENOrdering Facility: [facility] Address: [address] [place] [address] Performed By: #### 3 016-3, 15969-3, LIPCARMEN, 13551-0 ####[facility] LABCLIA [id number] [place] [address] [place] Creatinine and Glomerular filtration rate.predicted panel (S/P/Bld) 80 mL/min/1.73m??? Normal >=60 [facility] Comment on above: Order Comment: Salvatoreledy macias Type: BLOOD SPECIMENOrdering Facility: [facility] Address: [address] [place] [address] Result Comment: [place] mated Glomerular Filtration Rate (eGFR) is calculated using the 2020 CKD-EPI creatinine equation. This equation utilizes serum creatinine, sex, and age as parameters. The creatinine assay has traceable calibration to isotope dilution-mass spectrometry. Refer to KDIGO guidelines for clinical interpretation. In patients with unstable renal function, e.g. those with acute kidney injury, the eGFR may not accurately reflect actual GFR. Performed By: #### 3 016-3, 00341-6, LIPCARMEN, 02981-6 ####[facility] LABCLIA [id number] [place] [address] [place] Glucose [Mass/Vol] 87 mg/dL Normal 74-99 [facility] Comment on above: Order Comment: Manpreet macias Type: BLOOD SPECIMENOrdering Facility: [facility] Address: [address] [place] [address] Result Comment: The [place] Diabetes Association (ADA) provides guidance for cutoff values for fasting glucose and random glucose. The ADA defines fasting as no caloric intake for at least 8 hours. Fasting plasma glucose results between 100 to 125 mg/dL indicate increased risk for diabetes (prediabetes).Fasting plasma glucose results greater than or equal to 126 mg/dL meet the criteria for diagnosis of diabetes. In the absence of unequivocal hyperglycemia, results should be confirmed by repeat testing. In a patient with classic symptoms of hyperglycemia or hyperglycemic crisis, random plasma glucose results greater than or equal to 200 mg/dL meet the criteria for diagnosis of diabetes.Reference: Standards of Medical Care in Diabetes 2016, [place] Diabetes Association. Diabetes Care. 2016.39(Suppl 1). Performed By: #### 3 016-3, 34284-3, LIPNF, 63193-0 ####[facility] LABCLIA [id number] [address] [address] [place] Potassium [Moles/Vol] 4.4 mmol/L Normal 3.7-5.1 [facility] Comment on above: Order Comment: Speci men Type: BLOOD SPECIMENOrdering Facility: [facility] Address: [address] [place], [place] [address] Performed By: #### 3 016-3, 99324-7, LIPNF, 59071-3 ####[facility] LABIA [id number] [address] [address] [place] Protein [Mass/Vol] 6.8 g/dL Normal 6.3-8.0 [facility] Comment on above: Order Comment: Speci men Type: BLOOD SPECIMENOrdering Facility: [facility] Address: [address] [place] [address] Performed By: #### 3 016-3, 82771-3, LIPNF, 34014-0 ####[facility] LABIA [id number] [address] [address] [place] Sodium [Moles/Vol] 139 mmol/L Normal 136-144 [facility] Comment on above: Order Comment: Speci men Type: BLOOD SPECIMENOrdering Facility: [facility] Address: [address] [place] [id number] Performed By: #### 3 016-3, 83120-9, LIPNF, 31890-1 ####[facility] LABIA [id number] [address] [address] [place] Urea nitrogen [Mass/Vol] 24 mg/dL Normal 9-24 [facility] Comment on above: Order Comment: Speci men Type: BLOOD SPECIMENOrdering Facility: [facility] Address: [facility] [place] [address] Performed By: #### 3 016-3, 42009-5, LIPNF, 15651-4 ####[facility] LABCLIA [id number] [place] [address] [place] Ferritin SerPl-mCncon 2024 Ferritin [Mass/Vol] 201.0 ng/mL Normal 30.3-565.7 [facility] Comment on above: Order Comment: Speci men Type: BLOOD SPECIMENOrdering Facility: [facility] Address: [address] [place] [address] Performed By: #### 1 9123-9, 2276-4, 2132-9 ####[facility] LABCLIA [id number] [place] [address] [place] HbA1c (Bld)on 12-12-2024 Average glucose Estimated from glycated hemoglobin (Bld) [Mass/Vol] 103 mg/dL Normal [facility] Comment on above: Order Comment: Manpreet [facility] Type: BLOOD SPECIMENOrdering Facility: [facility] Address: [address] [place] [address] Result Comment: eAG: (Estimated average glucose) is a calculated value from HgbA1c and is telemarketing representative of the average blood glucose level in the last 2-3 month period. Performed By: #### 5 5454-3 ####[facility] LABIA [id number] [place] [address] [place] HbA1c (Bld) [Mass fraction] 5.2 % Normal 4.3-5.6 [facility] Comment on above: Order Comment: Salvatorei [facility] Type: BLOOD SPECIMENOrdering Facility: [facility] Address: [address] [place] [address] Result Comment: [place] Diabetes Association guidelines indicate that patients with HgbA1c in the range 5.7-6.4% are at increased risk for development of diabetes, and intervention by lifestyle modification may be beneficial. HgbA1c greater or equal to 6.5% is considered diagnostic of diabetes. Performed By: #### 5 5454-3 ####[facility] LABIA [id number] [place] [address] [place] Iron and Iron binding capaci ty panelon 12-12-2024 Iron [Mass/Vol] 100 ug/dL Normal 41-186 [facility] Comment on above: Order Comment: Speci men Type: BLOOD SPECIMENOrdering Facility: [facility] Address: [address] [place] [address] Performed By: #### 3 016-3, 05905-8, LIPNF, 68894-3 ####[facility] LABIA [id number] [address] [place] [facility] Iron binding capacity [Mass/Vol] 291 ug/dL Normal 232-386 [facility] Comment on above: Order Comment: Speci men Type: BLOOD SPECIMENOrdering Facility: [facility] Address: [address] [place] [address] Performed By: #### 3 016-3, 02615-6, LIPNF, 48960-6 ####[facility]ODIA [id number] [address] [place] Iron/TIBC [Molar ratio] 34.4 % Normal 15.0-57.0 [facility] Comment on above: Order Comment: Speci men Type: BLOOD SPECIMENOrdering Facility: [facility] Address: [address] [place] [address] Performed By: #### 3 016-3, 19228-1, LIPNF, 94051-4 ####[facility] [id number] [place] [address] [place] LIPID PANEL, NONFASTINGon Cholesterol [Mass/Vol] 174 mg/dL Normal <200 [facility] Comment on above: Order Comment: Speci men Type: BLOOD SPECIMENOrdering Facility: [facility] Address: [address] [place] [address] Result Comment: <200 mg/dL, Desirable 200-239 mg/dL, Borderline high>239 mg/dL, High Performed By: #### 3 016-3, 78223-2, LIPNF, 92569-5 ####[facility] LABCLIA [id number] [place] [address] [place] HDL CHOLESTEROL, NF 86 mg/dL Normal >39 [facility] Comment on above: Order Comment: Speci men Type: BLOOD SPECIMENOrdering Facility: [facility] Address: [address] [place] [address] Result Comment: 40-5 9 mg/dL, Acceptable>59 mg/dL, High: Negative risk factor for coronary heart disease<40 mg/dL, Low: Positive risk factor for coronary heart disease Performed By: #### 3 016-3, 45780-5, LIPNF, 95250-4 ####[facility] LABCLIA [id number] [address] [facility] LDL CHOLESTEROL, NF 72 mg/dL Normal <100 [facility] Comment on above: Order Comment: Speci men Type: BLOOD SPECIMENOrdering Facility: [facility] Address: [address] [place] [address] Result Comment: <100 mg/dL, Optimal 100-129 mg/dL, Near optimal/above optimal 130-159 mg/dL, Borderline high 160-189 mg/dL, High>189 mg/dL, Very highSecondary prevention optimal LDL Cholesterol levels are recommended to be < 70 mg/dL Performed By: #### 3 016-3, 90437-4, LIPNF, 70814-5 ####[facility] LABCLIA [id number] [place] [id number] [facility] [place] LDL/HDL RATIO, NF 0.84 mg/dL Normal <2.54 [facility] Comment on above: Order Comment: Speci men Type: BLOOD SPECIMENOrdering Facility: [facility] Address: [address] [place] [address] Result Comment: Refe rence:1. National Cholesterol Education Program ATP III Guideline At-A-Glance Quick Desk Reference: National Heart, Lung, and Blood Orange. National Institutes of Health. 2001: NIH Publication No. 01-3305.2. An International Atherosclerosis Society position paper: global recommendations for the management of dyslipidemia: executive summary, Atherosclerosis. 2014: 232(2):410-413. Performed By: #### 3 016-3, 99912-3, LIPNF, 86192-7 ####[facility] LABCLIA [id number] [place] [id number] [place] NON HDL CHOL, NF 88 mg/dL Normal <130 [facility] Comment on above: Order Comment: Speci men Type: BLOOD SPECIMENOrdering Facility: [facility] Address: [address] [place] [address] Result Comment: <130 mg/dL, Optimal 130-159 mg/dL, Near optimal/above optimal 160-189 mg/dL, Borderline high 190-219 mg/dL, High>219 mg/dL, Very highSecondary prevention optimal non HDL Cholesterol levels are recommended to be <100 mg/dL Performed By: #### 3 016-3, 85978-9, LIPNF, 24512-5 ####[facility] LABCLIA [id number] [address] [place] T CHOL/HDL RATIO NF 2.02 mg/dL Normal <5.10 [facility] Comment on above: Order Comment: Speci men Type: BLOOD SPECIMENOrdering Facility: [facility] Address: [address] [place] [address] Performed By: #### 3 016-3, 84704-3, LIPNF, 08125-1 ####[facility] LABCLIA [id number] [place] [id number] [place] TRIGLYCERIDES, NF 78 mg/dL Normal <150 [facility] Comment on above: Order Comment: Salvatorei men Type: BLOOD SPECIMENOrdering Facility: [facility] Address: [address] [place] [address] Result Comment: <150 mg/dL, Normal 150-199 mg/dL, Borderline high 200-499 mg/dL, High>499 mg/dL, Very high Performed By: #### 3 016-3, 93594-7, LIPNF, 81958-3 ####[facility] LABCLIA [id number] [address] [address] [place] VLDL CHOLESTEROL, NF 16 mg/dL Normal <30 [facility] Comment on above: Order Comment: Speci men Type: BLOOD SPECIMENOrdering Facility: [facility] Address: [address] [place] [address] Performed By: #### 3 016-3, 08501-3, LIPNF, 04818-2 ####[facility] LABCLIA [id number] [place] [address] [place] Magnesium SerPl-mCncon 12-12 Magnesium [Mass/Vol] 2.1 mg/dL Normal 1.7-2.3 [facility] Comment on above: Order Comment: Speci men Type: BLOOD SPECIMENOrdering Facility: [facility] Address: [address] [place] [address] Performed By: #### 1 9123-9, 2276-4, 2132-9 ####[facility] LABCLIA [id number] [place] [address] [place] TSH SerPl-aCncon 12-12-2024 TSH Qn 1.670 m[IU]/L Normal 0.270-4.200 [facility] Comment on above: Order Comment: Speci men Type: BLOOD SPECIMENOrdering Facility: [facility] Address: [address] [place] [address] Performed By: #### 3 016-3, 06484-1, LIPNF, 65025-4 ####[facility] LABCLIA [id number] [place] [id number] [place] Urinalysis complete panel (U )on 12-12-2024 BACTERIA UL >9821 High Negative [facility] Comment on above: Order Comment: Speci men Type: URINE SPECIMENOrdering Facility: [facility] Address: [address] [place] [address] Performed By: #### 2 4356-8 ####[facility] LABCLIA [id number] [address] [place] [address] [place] Bilirubin Ql (U) Negative Normal Negative [facility] Comment on above: Order Comment: Speci men Type: URINE SPECIMENOrdering Facility: [facility] Address: [address] [place] [address] Performed By: #### 2 4356-8 ####[facility] LABCLIA [id number] [address], [facility]95 [place] Clarity (Unsp spec) Clear Normal Clear [facility] Comment on above: Order Comment: Speci men Type: URINE SPECIMENOrdering Facility: [facility] Address: [address] [place] [address] Performed By: #### 2 4356-8 ####[facility] LABCLIA [id number] [address], [facility]95 [place] Color (U) Yellow Normal Yellow [facility] Comment on above: Order Comment: Speci men Type: URINE SPECIMENOrdering Facility: [facility] Address: [address] [place] [address] Performed By: #### 2 4356-8 ####[facility] LABCLIA [id number] [address] [place] [address] [place] Epithelial cells LM.HPF (Urine sed) [#/Area] None Seen Normal [facility] Comment on above: Order Comment: Speci men Type: URINE SPECIMENOrdering Facility: [facility] Address: [address] [place] [address] Performed By: #### 2 4356-8 ####[facility] LABCLIA [id number] [address], [facility]95 [place] Glucose Test strip (U) [Mass/Vol] Negative Normal Negative [facility] Comment on above: Order Comment: Speci men Type: URINE SPECIMENOrdering Facility: [facility] Address: [address] [place] [address] Performed By: #### 2 4356-8 ####[facility] LABCLIA [id number] [place] [address] [place] Hemoglobin Ql (U) Negative Normal Negative [facility] Comment on above: Order Comment: Speci men Type: URINE SPECIMENOrdering Facility: [facility] Address: [address] [place] [address] Performed By: #### 2 4356-8 ####[facility] LABCLIA [id number] [place] [address] [place] Hyaline casts (Urine sed) [#/Area] 1-3 /LPF Abnormal 0 /LPF [facility] Comment on above: Order Comment: Speci men Type: URINE SPECIMENOrdering Facility: [facility] Address: [address] [place] [address] Performed By: #### 2 4356-8 ####[facility] LABCLIA [id number] [place] [address] [place] Ketones Ql (U) Negative Normal Negative [facility] Comment on above: Order Comment: Speci men Type: URINE SPECIMENOrdering Facility: [facility] Address: [address] [place] [address] Performed By: #### 2 4356-8 ####[facility] LABCLIA [id number] [place] [address] [place] Leukocyte esterase Test strip Ql (U) 3+ Abnormal Negative [facility] Comment on above: Order Comment: Speci men Type: URINE SPECIMENOrdering Facility: [facility] Address: [address] [place] [address] Performed By: #### 2 4356-8 ####[facility] LABCLIA [id number] [place] [address] [place] Nitrite Ql (U) Negative Normal Negative [facility] Comment on above: Order Comment: Speci men Type: URINE SPECIMENOrdering [facility] Address: [address] [place] [address] Performed By: #### 2 4356-8 ####[facility] LABIA [id number] [place] [address] [place] pH (U) 5.5 [pH] Normal <8.5 [facility] Comment on above: Order Comment: Speci men Type: URINE SPECIMENOrdering Facility: [facility] Address: [address] [place] [address] Performed By: #### 2 4356-8 ####[facility] LABIA [id number] [place] [address] [place] Protein (U) [Mass/Vol] Negative Normal Negative [facility] Comment on above: Order Comment: Speci men Type: URINE SPECIMENOrdering Facility: [facility] Address: [address] [place] [address] Performed By: #### 2 4356-8 ####[facility] LABIA [id number] [place] [address] [place] RBC LM.HPF (Urine sed) [#/Area] 0-2 /HPF Normal 0-2 /HPF [facility] Comment on above: Order Comment: Speci men Type: URINE SPECIMENOrdering Facility: [facility] Address: [address] [place] [address] Performed By: #### 2 4356-8 ####[facility] LABIA [id number] [place] [address] [place] Specific gravity (U) [Rel density] 1.015 Normal 1.005-1.030 [facility] Comment on above: Order Comment: Speci men Type: URINE SPECIMENOrdering Facility: [facility] Address: [address] [place] [address] Performed By: #### 2 4356-8 ####[facility] [id number] [place] [address] [place] Urobilinogen Ql (U) 0.2 EU/dL Normal 0.2-1.0 EU/dL Cl [facility] Comment on above: Order Comment: Speci men Type: URINE SPECIMENOrdering Facility: [facility] Address: [address] [place] [address] Performed By: #### 2 4356-8 ####[facility] [id number] [place] [address] [place] WBC LM.HPF (Urine sed) [#/Area] /[HPF] Abnormal 0-5 /HPF [facility] Comment on above: Order Comment: Speci men Type: URINE SPECIMENOrdering Facility: [facility] Address: [address] [place] [address] Performed By: #### 2 4356-8 ####[facility] [id number] [place] [address] [place] Vit B12 SerPl-mCncon 025 Cobalamin (Vitamin B12) [Mass/Vol] 700 pg/mL Normal 232-1245 [facility] Comment on above: Order Comment: Speci men Type: BLOOD SPECIMENOrdering Facility: [facility] Address: [address] [place] [address] Performed By: #### 1 9123-9, 2276-4, 2132-9 ####[facility] [id number] [place] [address] [place] CHEST WO IVCONon 12-05-[address] CHEST WO IVCON Normal [facility] CNPNon 11-23-2024 CNPN Normal [facility] NM BONE WHOLE BODYon 025 NM BONE WHOLE BODY Normal [facility] Whole body Bone Viewson 0 11-23-2024 IMPRESSION: 1. Consecutive foci of increased uptake in lateral lower left ribs likely posttraumatic in nature. 2. Degenerative changes above. 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: PSCCasey Transcribe Date/Time: Nov 23 2024 3:44P Dictated by : LILLIE BELLO MD This examination was interpreted and the report reviewed and electronically signed by: LILLIE BELLO MD on Nov 23 2024 3:48PM [facility] DIVISION OF RADIOLOGY * * *Final Report* * * DATE OF EXAM: Nov 23 2024 3:44PM [facility] 0014 - [place] BONE WHOLE BODY / PROCEDURE REASON: Rib pain on left side * * * * Physician Interpretation * * * * WHOLE BODY BONE SCAN CLINICAL HISTORY: 84 years old Male patient with left hip pain TECHNIQUE: 22.1 mCi Tc-99m MDP IV. Whole body planar imaging followed in 3-4 hours, both in anterior and posterior views. Additional static images of the skull were obtained. COMPARISON: No prior bone scan available for comparison. CORRELATION: XR rib/chest 10/10/2024, CT abdomen pelvis 07/25/2024. RESULT: Consecutive foci of increased uptake in left lateral lower ribs likely posttraumatic in nature. There is no evidence of abnormal tracer uptake elsewhere in the bones.. Increased uptake is identified in the shoulder joints, sternoclavicular joints, thoracolumbar spine, SI joints, knees and feet, consistent with degenerative change. DIVISION OF RADIOLOGY Provider, [facility] - 11/23/2024 * * *Final Report* * * DATE OF EXAM: Nov 23 2024 3:44PM [facility] 0014 - [place] BONE WHOLE BODY / PROCEDURE REASON: Rib pain on left side * * * * Physician Interpretation * * * * WHOLE BODY BONE SCAN CLINICAL HISTORY: 84 years old Male patient with left hip pain TECHNIQUE: 22.1 mCi Tc-99m MDP IV. Whole body planar imaging followed in 3-4 hours, both in anterior and posterior views. Additional static images of the skull were obtained. COMPARISON: No prior bone scan available for comparison. CORRELATION: XR rib/chest 10/10/2024, CT abdomen pelvis 07/25/2024. RESULT: Consecutive foci of increased uptake in left lateral lower ribs likely posttraumatic in nature. There is no evidence of abnormal tracer uptake elsewhere in the bones.. Increased uptake is identified in the shoulder joints, sternoclavicular joints, thoracolumbar spine, SI joints, knees and feet, consistent with degenerative change. IMPRESSION IMPRESSION: 1. Consecutive foci of increased uptake in lateral lower left ribs likely posttraumatic in nature. 2. Degenerative changes above. 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: BRIAN Transcribe Date/Time: Nov 23 2024 3:44P Dictated by : LILLIE BELLO MD This examination was interpreted and the report reviewed and electronically signed by: LILLIE BELLO MD on Nov 23 2024 3:48PM EST [facility] Radiology Study observation (narrative) [facility] Whole body Bone ViewsOrde red By: Ccf Provider on 11-23-2024 [facility] CNOVon 11-10-2024 CNOV Normal [facility] CNPNon 11-10-2024 CNPN Normal [facility] CBC W Auto Differential pane l (Bld)on 11-06-2024 Basophils (Bld) [#/Vol] 0.03 10*3/uL Normal <0.11 [facility] Comment on above: Order Comment: Speci men Type: BLOOD SPECIMENOrdering Facility: [facility] Address: [address] [place] [address] Performed By: #### 5 7021-8 ####[facility] [id number] [place] [address] [place] Basophils/100 WBC (Bld) 0.8 % Normal C [facility] Comment on above: Order Comment: Speci men Type: BLOOD SPECIMENOrdering Facility: [facility] Address: [address] [place] [address] Performed By: #### 5 7021-8 ####[facility] [id number] [place] [address] [place] Differential cell count method Nom (Bld) Auto Normal [facility] Comment on above: Order Comment: Speci men Type: BLOOD SPECIMENOrdering Facility: [facility] Address: [address] [place] [address] Performed By: #### 5 7021-8 ####[facility]ITALWNCLIA [id number] [place] [address] [place] Eosinophils (Bld) [#/Vol] 0.07 10*3/uL Normal <0.46 [facility] Comment on above: Order Comment: Speci men Type: BLOOD SPECIMENOrdering Facility: [facility] Address: [address] [place] [address] Performed By: #### 5 7021-8 ####[facility] [id number] [place] [address] [place] Eosinophils/100 WBC (Bld) 1.8 % Normal [facility] Comment on above: Order Comment: Speci men Type: BLOOD SPECIMENOrdering Facility: [facility] Address: [address] [place] [address] Performed By: #### 5 7021-8 ####[facility]ITAL[facility]CL[facility] [id number] [place] [address] [place] Erythrocyte distribution width (RBC) [Ratio] 13.7 % Normal 11.5-15.0 [facility] Comment on above: Order Comment: Speci men Type: BLOOD SPECIMENOrdering Facility: [facility] Address: [address] [place] [address] Performed By: #### 5 7021-8 ####[facility] [id number] [place] [address] [place] Hematocrit (Bld) [Volume fraction] 38.3 % Low 39.0-51.0 [facility] Comment on above: Order Comment: Speci men Type: BLOOD SPECIMENOrdering Facility: [facility] Address: [address] [place] [address] Performed By: #### 5 7021-8 ####[facility] [id number] [place] [address] [place] Hemoglobin (Bld) [Mass/Vol] 12.3 g/dL Low 13.0-17.0 [facility] Comment on above: Order Comment: Speci men Type: BLOOD SPECIMENOrdering Facility: [facility] Address: [address] [place] [address] Performed By: #### 5 7021-8 ####[facility] [id number] [place] [address] [place] Immature granulocytes (Bld) [#/Vol] 10*3/uL Normal <0.10 [facility] Comment on above: Order Comment: Speci men Type: BLOOD SPECIMENOrdering Facility: [facility] Address: [address] [place] [address] Performed By: #### 5 7021-8 ####[facility] [id number] [place] [address] [place] Immature granulocytes/100 WBC (Bld) 0.3 % Normal [facility] Comment on above: Order Comment: Speci men Type: BLOOD SPECIMENOrdering Facility: [facility] Address: [address] [place] [address] Performed By: #### 5 7021-8 ####[facility] [id number] [place] [address] [place] Lymphocytes (Bld) [#/Vol] 1.43 10*3/uL Normal 1.00-4.00 [facility] Comment on above: Order Comment: Speci men Type: BLOOD SPECIMENOrdering Facility: [facility] Address: [address] [place] [address] Performed By: #### 5 7021-8 ####[facility]ITALNCLIA [id number] [place] [address] [place] Lymphocytes/100 WBC (Bld) 37.7 % Normal [facility] Comment on above: Order Comment: Speci men Type: BLOOD SPECIMENOrdering Facility: [facility] Address: [address] [place] [address] Performed By: #### 5 7021-8 ####[facility] YONATHANPORTLANDNCCHUY [id number] [place] [address] [place] MCH (RBC) [Entitic mass] 30.8 pg Normal 26.0-34.0 [facility] Comment on above: Order Comment: Speci men Type: BLOOD SPECIMENOrdering Facility: [facility] Address: [address] [place], [place] [address] Performed By: #### 5 7021-8 ####[facility]ITALNC[facility] [id number] [place] [address] [place] MCHC (RBC) [Mass/Vol] 32.1 g/dL Normal 30.5-36.0 [facility] Comment on above: Order Comment: Speci men Type: BLOOD SPECIMENOrdering Facility: [facility] Address: [address] [place] [address] Performed By: #### 5 7021-8 ####[facility]ITALNCLIA [id number] [address] [place] MCV (RBC) [Entitic vol] 96.0 fL Normal 80.0-100.0 C [facility] Comment on above: Order Comment: Speci men Type: BLOOD SPECIMENOrdering Facility: [facility] Address: [address] [place] [address] Performed By: #### 5 7021-8 ####[facility]ITAL[facility] [id number] [place] [address] [place] Monocytes (Bld) [#/Vol] 0.39 10*3/uL Normal <0.87 [facility] Comment on above: Order Comment: Speci men Type: BLOOD SPECIMENOrdering Facility: [facility] Address: [address] [place] [address] Performed By: #### 5 7021-8 ####[facility] MILLWNCLIA [id number] [place] [address] [place] Monocytes/100 WBC (Bld) 10.3 % Normal [facility] Comment on above: Order Comment: Speci men Type: BLOOD SPECIMENOrdering Facility: [facility] Address: [address] [place] [address] Performed By: #### 5 7021-8 ####[facility]ITALNCLIA [id number] [place] [address] [place] Neutrophils (Bld) [#/Vol] 1.86 10*3/uL Normal 1.45-7.50 [facility] Comment on above: Order Comment: Speci men Type: BLOOD SPECIMENOrdering Facility: [facility] Address: [address] [place] [address] Performed By: #### 5 7021-8 ####[facility] [id number] [place] [address] [place] Neutrophils/100 WBC (Bld) 49.1 % Normal [facility] Comment on above: Order Comment: Speci men Type: BLOOD SPECIMENOrdering Facility: [facility] Address: [address] [place] [address] Performed By: #### 5 7021-8 ####[facility] [id number] [place] [address] [place] Nucleated RBC (Bld) [#/Vol] 10*3/uL Normal <0.01 [facility] Comment on above: Order Comment: Speci men Type: BLOOD SPECIMENOrdering Facility: [facility] Address: [address] [place] [address] Performed By: #### 5 7021-8 ####[facility] [id number] [place] [address] [place] Nucleated RBC/100 WBC (Bld) [Ratio] 0.0 /100 WBC Normal [facility] Comment on above: Order Comment: Speci men Type: BLOOD SPECIMENOrdering Facility: [facility] Address: [address] [place] [address] Performed By: #### 5 7021-8 ####[facility] YONATHANRupaliROSCOE [id number] [place] [address] [place] Platelet mean volume (Bld) [Entitic vol] 8.4 fL Low 9.0-12.7 [facility] Comment on above: Order Comment: Speci men Type: BLOOD SPECIMENOrdering Facility: [facility] Address: [address] [place] [address] Performed By: #### 5 7021-8 ####[facility] HOSPITALCRYSTALFouzia [id number] [place] [address] [place] Platelets (Bld) [#/Vol] 175 10*3/uL Normal 150-400 [facility] Comment on above: Order Comment: Speci men Type: BLOOD SPECIMENOrdering Facility: [facility] Address: [address] [place] [address] Performed By: #### 5 7021-8 ####[facility] YONATHANPORTLANDCASEYFouzia [id number] [place] [address] [place] RBC (Bld) [#/Vol] 3.99 10*6/uL Low 4.20-6.00 [facility] Comment on above: Order Comment: Speci men Type: BLOOD SPECIMENOrdering Facility: [facility] Address: [address] [place] [address] Performed By: #### 5 7021-8 ####[facility]ITALNCLIA [id number] [place] [address] [place] WBC (Bld) [#/Vol] 3.79 10*3/uL Normal 3.70-11.00 [facility] Comment on above: Order Comment: Speci men Type: BLOOD SPECIMENOrdering Facility: [facility] Address: [address] [place] [address] Performed By: #### 5 7021-8 ####[facility] MARGARITA MILLTOWNCLIA [id number] [place] [address] [place] Ferritin SerPl-mCncon 2024 Ferritin [Mass/Vol] 514.3 ng/mL Normal 30.3-565.7 [facility] Comment on above: Order Comment: Speci men Type: BLOOD SPECIMENOrdering Facility: [facility] Address: [address] [place] [address] Performed By: #### 2 276-4 ####[facility]ORATORYCLIA [id number] [place] [address] [place] CNOVon 10-18-2024 CNOV Normal [facility] CNOVSPon 10-16-2024 CNOVSP Normal [facility] CNPNon 10-11-2024 CNPN Normal [facility] CBC W Auto Differential pane l (Bld)on 10-10-2024 Basophils (Bld) [#/Vol] 0.03 10*3/uL [facility] Basophils/100 WBC (Bld) 0.5 % [facility] Differential cell count method Nom (Bld) Auto [facility] Eosinophils (Bld) [#/Vol] 0.09 10*3/uL [facility] Eosinophils/100 WBC (Bld) 1.6 % [facility] Erythrocyte distribution width (RBC) [Ratio] 14.0 % 11.5 - 15.0 % [facility] Hematocrit (Bld) [Volume fraction] 37.7 % Low 39.0 - 51.0 % [facility] Hemoglobin (Bld) [Mass/Vol] 11.8 g/dL Low 13.0 - 17.0 g/dL [facility] Immature granulocytes (Bld) [#/Vol] [facility] Immature granulocytes/100 WBC (Bld) 0.2 % [facility] Interpretation and review of laboratory results Abnormal [facility] Lymphocytes (Bld) [#/Vol] 1.14 10*3/uL [facility] Lymphocytes/100 WBC (Bld) 20.2 % [facility] MCH (RBC) [Entitic mass] 30.2 pg 26. 0 - 34.0 pg [facility] MCHC (RBC) [Mass/Vol] 31.3 g/dL 30.5 - 36.0 g/dL [facility] MCV (RBC) [Entitic vol] 96.4 fL 80.0 - 100.0 fL [facility] Monocytes (Bld) [#/Vol] 0.54 10*3/uL [facility] Monocytes/100 WBC (Bld) 9.6 % C [facility] Neutrophils (Bld) [#/Vol] 3.84 10*3/uL [facility] Neutrophils/100 WBC (Bld) 67.9 % [facility] Nucleated RBC (Bld) [#/Vol] NINF [facility] Nucleated RBC/100 WBC (Bld) [Ratio] 0.0 % /100 WBC [facility] Platelet mean volume (Bld) [Entitic vol] 9.9 fL 9.0 - 12.7 fL [facility] Platelets (Bld) [#/Vol] 165 10*3/uL [facility] RBC (Bld) [#/Vol] 3.91 10*6/uL Low 4.20 - 6.0 0 m/uL [facility] WBC (Bld) [#/Vol] 5.65 10*3/uL [facility] Basophils (Bld) [#/Vol] 0.03 10*3/uL Normal <0.11 [facility] Comment on above: Order Comment: Speci men Type: BLOOD SPECIMENOrdering Facility: [facility] Address: [address] [place] [address] Performed By: #### 5 7021-8 ####[facility] LABCLIA [id number] [place] [address] [place] Basophils/100 WBC (Bld) 0.5 % Normal [facility] Comment on above: Order Comment: Speci men Type: BLOOD SPECIMENOrdering Facility: [facility] Address: [address] [place] [address] Performed By: #### 5 7021-8 ####[facility] LABCLIA [id number] [place] [address] [place] Differential cell count method Nom (Bld) Auto Normal [facility] Comment on above: Order Comment: Speci men Type: BLOOD SPECIMENOrdering Facility: [facility] Address: [address] [place] [address] Performed By: #### 5 7021-8 ####[facility] LABCLIA [id number] [place] [address] [place] Eosinophils (Bld) [#/Vol] 0.09 10*3/uL Normal <0.46 [facility] Comment on above: Order Comment: Speci men Type: BLOOD SPECIMENOrdering Facility: [facility] Address: [address] [place] [address] Performed By: #### 5 7021-8 ####[facility] LABCLIA [id number] [place] [address] [place] Eosinophils/100 WBC (Bld) 1.6 % Normal [facility] Comment on above: Order Comment: Speci men Type: BLOOD SPECIMENOrdering Facility: [facility] Address: [address] [place] [address] Performed By: #### 5 7021-8 ####[facility] LABIA [id number] [place] [address] [place] Erythrocyte distribution width (RBC) [Ratio] 14.0 % Normal 11.5-15.0 [facility] Comment on above: Order Comment: Speci men Type: BLOOD SPECIMENOrdering Facility: [facility] Address: [address] [place] [address] Performed By: #### 5 7021-8 ####[facility] LABCLIA [id number] [place] [address] [place] Hematocrit (Bld) [Volume fraction] 37.7 % Low 39.0-51.0 [facility] Comment on above: Order Comment: Speci men Type: BLOOD SPECIMENOrdering Facility: [facility] Address: [address] [place] [address] Performed By: #### 5 7021-8 ####[facility] LABCLIA [id number] [place] [address] [place] Hemoglobin (Bld) [Mass/Vol] 11.8 g/dL Low 13.0-17.0 [facility] Comment on above: Order Comment: Speci men Type: BLOOD SPECIMENOrdering Facility: [facility] Address: [address] [place] [address] Performed By: #### 5 7021-8 ####[facility] LABCLIA [id number] [place] [address] [place] Immature granulocytes (Bld) [#/Vol] 10*3/uL Normal <0.10 [facility] Comment on above: Order Comment: Speci men Type: BLOOD SPECIMENOrdering Facility: [facility] Address: [address] [place] [address] Performed By: #### 5 7021-8 ####[facility] LABCLIA [id number] [place] [address] [place] Immature granulocytes/100 WBC (Bld) 0.2 % Normal [facility] Comment on above: Order Comment: Speci men Type: BLOOD SPECIMENOrdering Facility: [facility] Address: [address] [place] [address] Performed By: #### 5 7021-8 ####[facility] LABCLIA [id number] [place] [address] [place] Lymphocytes (Bld) [#/Vol] 1.14 10*3/uL Normal 1.00-4.00 [facility] Comment on above: Order Comment: Speci men Type: BLOOD SPECIMENOrdering Facility: [facility] Address: [address] [place] [address] Performed By: #### 5 7021-8 ####[facility] LABIA [id number] [place] [address] [place] Lymphocytes/100 WBC (Bld) 20.2 % Normal [facility] Comment on above: Order Comment: Speci men Type: BLOOD SPECIMENOrdering Facility: [facility] Address: [address] [place] [address] Performed By: #### 5 7021-8 ####[facility] LABIA [id number] [place] [address] [place] MCH (RBC) [Entitic mass] 30.2 pg Normal 26.0-34.0 [facility] Comment on above: Order Comment: Speci men Type: BLOOD SPECIMENOrdering Facility: [facility] Address: [address] [place] [address] Performed By: #### 5 7021-8 ####[facility] LABIA [id number] [place] [address] [place] MCHC (RBC) [Mass/Vol] 31.3 g/dL Normal 30.5-36.0 [facility] Comment on above: Order Comment: Speci men Type: BLOOD SPECIMENOrdering Facility: [facility] Address: [address] [place] [address] Performed By: #### 5 7021-8 ####[facility] LABIA [id number] [place] [address] [place] MCV (RBC) [Entitic vol] 96.4 fL Normal 80.0-100.0 C [facility] Comment on above: Order Comment: Speci men Type: BLOOD SPECIMENOrdering Facility: [facility] Address: [address] [place] [address] Performed By: #### 5 7021-8 ####[facility] LABIA [id number] [place] [address] [place] Monocytes (Bld) [#/Vol] 0.54 10*3/uL Normal <0.87 [facility] Comment on above: Order Comment: Speci men Type: BLOOD SPECIMENOrdering Facility: [facility] Address: [address] [place] [address] Performed By: #### 5 7021-8 ####[facility] LABCLIA [id number] [place] [address] [place] Monocytes/100 WBC (Bld) 9.6 % Normal [facility] Comment on above: Order Comment: Speci men Type: BLOOD SPECIMENOrdering Facility: [facility] Address: [address] [place] [address] Performed By: #### 5 7021-8 ####[facility] LABCLIA [id number] [place] [address] [place] Neutrophils (Bld) [#/Vol] 3.84 10*3/uL Normal 1.45-7.50 [facility] Comment on above: Order Comment: Speci men Type: BLOOD SPECIMENOrdering Facility: [facility] Address: [address] [place] [address] Performed By: #### 5 7021-8 ####[facility] LABCLIA [id number] [place] [address] [place] Neutrophils/100 WBC (Bld) 67.9 % Normal [facility] Comment on above: Order Comment: Speci men Type: BLOOD SPECIMENOrdering Facility: [facility] Address: [address] [place] [address] Performed By: #### 5 7021-8 ####[facility] LABCLIA [id number] [place] [address] [place] Nucleated RBC (Bld) [#/Vol] 10*3/uL Normal <0.01 [facility] Comment on above: Order Comment: Speci men Type: BLOOD SPECIMENOrdering Facility: [facility] Address: [address] [place] [address] Performed By: #### 5 7021-8 ####[facility] LABCLIA [id number] [place] [address] [place] Nucleated RBC/100 WBC (Bld) [Ratio] 0.0 /100 WBC Normal [facility] Comment on above: Order Comment: Speci men Type: BLOOD SPECIMENOrdering Facility: [facility] [facility] Address: [address] [place] [address] Performed By: #### 5 7021-8 ####[facility] LABCLIA [id number] [place] [address] [place] Platelet mean volume (Bld) [Entitic vol] 9.9 fL Normal 9.0-12.7 [facility] Comment on above: Order Comment: Speci men Type: BLOOD SPECIMENOrdering Facility: [facility] Address: [address] [place] [address] Performed By: #### 5 7021-8 ####[facility] LABCLIA [id number] [place] [address] [place] Platelets (Bld) [#/Vol] 165 10*3/uL Normal 150-400 [facility] Comment on above: Order Comment: Speci men Type: BLOOD SPECIMENOrdering Facility: [facility] Address: [address] [place] [address] Performed By: #### 5 7021-8 ####[facility] LABCLIA [id number] [place] [address] [place] RBC (Bld) [#/Vol] 3.91 10*6/uL Low 4.20-6.00 [facility] Comment on above: Order Comment: Speci men Type: BLOOD SPECIMENOrdering Facility: [facility] Address: [address] [place] [address] Performed By: #### 5 7021-8 ####[facility] LABIA [id number] [address] [address] [place] WBC (Bld) [#/Vol] 5.65 10*3/uL Normal 3.70-11.00 [facility] Comment on above: Order Comment: Speci men Type: BLOOD SPECIMENOrdering Facility: [facility] Address: [address] [place] [address] Performed By: #### 5 7021-8 ####[facility] LABIA [id number] [place] [address] [place] CNOVon 10-10-2024 CNOV Normal [facility] CNPNon 10-10-2024 CNPN Normal [facility] Iron and Iron binding capaci ty panelon 10-10-2024 Iron [Mass/Vol] 33 ug/dL Low 41-186 [facility] Comment on above: Order Comment: Speci men Type: BLOOD SPECIMENOrdering Facility: [facility] Address: [address] [place] [address] Performed By: #### 3 024-7, 3016-3, 54522-1 ####[facility] [id number] [place] [address] [place] Iron binding capacity [Mass/Vol] 340 ug/dL Normal 232-386 [facility] Comment on above: Order Comment: Speci men Type: BLOOD SPECIMENOrdering Facility: [facility] Address: [address] [place] [address] Performed By: #### 3 024-7, 3016-3, 58849-6 ####[facility] LABIA [id number] [place] [id number] [place] Iron/TIBC [Molar ratio] 9.7 % Low 15.0-57.0 C [facility] Comment on above: Order Comment: Speci men Type: BLOOD SPECIMENOrdering Facility: [facility] Address: [address] [place] [address] Performed By: #### 3 024-7, 3016-3, 96832-5 ####[facility] LABCLIA [id number] [place] [address] [place] T4 Free SerPl-mCncon 025 Free T4 [Mass/Vol] 1.1 ng/dL Normal 0.9-1.7 [facility] Comment on above: Order Comment: Speci men Type: BLOOD SPECIMENOrdering Facility: [facility] Address: [address] [place] [address] Performed By: #### 3 024-7, 3016-3, 25785-5 ####[facility] LABIA [id number] [place] [address] [place] TSH SerPl-aCncon 10-10-2024 TSH Qn 2.140 m[IU]/L Normal 0.270-4.200 [facility] Comment on above: Order Comment: Speci men Type: BLOOD SPECIMENOrdering Facility: [facility] Address: [address] [place] [address] Performed By: #### 3 024-7, 3016-3, 76104-6 ####[facility] LABIA [id number] [address] [place] XR RIB/CHST 3V AP RIB/OBL/CH ST Alex 10-10-2024 XR RIB/CHST 3V AP RIB/OBL/CHST L Normal [facility] XR Ribs - left Views and Cristel st PAon 10-10-2024 Radiology Study observation (narrative) [facility] IMPRESSION: No radiographic evidence of acute displaced left rib fracture 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: [employer] Transcribe Date/Time: Oct 10 2024 9:26A Dictated by : PANCHO HARRINGTON MD This examination was interpreted and the report reviewed and electronically signed by: PANCHO HARRINGTON MD on Oct 10 2024 9:28AM [facility] DIVISION OF RADIOLOGY * * *Final Report* * * DATE OF EXAM: Oct 10 2024 9:24AM WOX [id number] - XR RIB/CHST 3V AP RIB/OBL/CHST L / PROCEDURE REASON: Rib pain on left side * * * * Physician Interpretation * * * * TITLE: XR RIB/CHST 3V AP RIB/OBL/CHST L CLINICAL INDICATION: Left lower chest wall pain TECHNIQUE: 3 views of left sided radiographic rib series with inclusion of a single frontal view of the chest COMPARISON: Radiograph dated 08/25/2022 FINDINGS: Osseous demineralization. No radiographic evidence of acute displaced left rib fracture. Stable cardiomediastinal silhouette. No focal consolidation. No discernible pleural effusion or pneumothorax. 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 DIVISION OF RADIOLOGY Provider, [facility] - 10/10/2024 * * *Final Report* * * DATE OF EXAM: Oct 10 2024 9:24AM WOX [id number] - XR RIB/CHST 3V AP RIB/OBL/CHST L / PROCEDURE REASON: Rib pain on left side * * * * Physician Interpretation * * * * TITLE: XR RIB/CHST 3V AP RIB/OBL/CHST L CLINICAL INDICATION: Left lower chest wall pain TECHNIQUE: 3 views of left sided radiographic rib series with inclusion of a single frontal view of the chest COMPARISON: Radiograph dated 08/25/2022 FINDINGS: Osseous demineralization. No radiographic evidence of acute displaced left rib fracture. Stable cardiomediastinal silhouette. No focal consolidation. No discernible pleural effusion or pneumothorax. 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 IMPRESSION IMPRESSION: No radiographic evidence of acute displaced left rib fracture 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: [facility] Transcribe Date/Time: Oct 10 2024 9:26A Dictated by : PANCHO HARRINGTON MD This examination was interpreted and the report reviewed and electronically signed by: PANCHO HARRINGTON MD on Oct 10 2024 9:28AM EST [facility] XR Ribs - left Views and Cristel st PAOrdered By: Ccf Provider on 10-10-2024 [facility] OT D/C of Non Returning Pton 09-25-2024 OT D/C of Non Returning Pt [facility] Occupational [facility] [address] [place] [address] [address] [place] [address] / REHABILITATION SERVICES DISCHARGE SUMMARY MR#: [id number] Acct: [id number] Name: JAVIER BOND Rep #: [id number] : 1940 83 From: Stephany Staley Referring Dr.: FRANCINE Roque Status: RE G RCR Eval Date: Discharge Date: Patient Information Patient Information: JAVIER BOND was seen in my office for initial evaluation on 06/27/24. The following Plan of Care was established for this patient: POC Established Initial Frequency: 1-2x /Week Initial Duration: 4-6 Weeks Plan: AROM/AAROM/PROM pain modalities tendon glide strengthening Anticipated Interventions Anticipated Interventions: A/AAROM/PROM, Strengthening, Triggerpoint Release, Modalities, Orthoses, Joint Protection/Energy Conservation, Education re assistive Equipment, Education re Diagnosis and Home Program Last Seen Last Seen: This patient was last seen in our office 07/12/24. Pertinent comments regarding their Occupational therapy will appear below: This 83 year old male seen by OT for dx of B hand pain. Pt seen for pain management ed in joint protection, positioning, modifications as well as stretch and strengthening. discharge at this time due to time lapse in services. At this point I will be discontinuing this patient from occupational therapy. I would be happy to see this patient again in the future if found appropriate by the physician. Thank you! Stephany Staley 09/25/24 1102 CC: FRANCINE Roque; Dr. Francisco Bahena MD CK Signed Normal [facility] CNOVon 09-21-2024 CNOV Normal [facility] CNPNon 09-05-2024 CNPN Normal [facility] CNPNon 09-03-2024 CNPN Normal [facility] CBC W Auto Differential pane l (Bld)on 08-30-2024 Basophils (Bld) [#/Vol] 0.03 10*3/uL Normal <0.11 [facility] Comment on above: Order Comment: Speci men Type: BLOOD SPECIMENOrdering Facility: [facility] Address: [address] [place] [address] Performed By: #### 5 7021-8 ####[facility] LABCLIA [id number] [place] [address] [place] Basophils/100 WBC (Bld) 0.6 % Normal [facility] Comment on above: Order Comment: Speci men Type: BLOOD SPECIMENOrdering Facility: [facility] Address: [address] [place] [address] Performed By: #### 5 7021-8 ####[facility] LABCLIA [id number] [place] [address] [place] Differential cell count method Nom (Bld) Auto Normal [facility] Comment on above: Order Comment: Speci men Type: BLOOD SPECIMENOrdering Facility: [facility] Address: [address] [place] [address] Performed By: #### 5 7021-8 ####[facility] LABCLIA [id number] [place] [address] [place] Eosinophils (Bld) [#/Vol] 0.06 10*3/uL Normal <0.46 [facility] Comment on above: Order Comment: Speci men Type: BLOOD SPECIMENOrdering Facility: [facility] Address: [address] [place] [address] Performed By: #### 5 7021-8 ####[facility] LABCLIA [id number] [place] [address] [place] Eosinophils/100 WBC (Bld) 1.2 % Normal [facility] Comment on above: Order Comment: Speci men Type: BLOOD SPECIMENOrdering Facility: [facility] Address: [address] [place] [address] Performed By: #### 5 7021-8 ####[facility] LABCLIA [id number] [place] [address] [place] Erythrocyte distribution width (RBC) [Ratio] 14.3 % Normal 11.5-15.0 [facility] Comment on above: Order Comment: Speci men Type: BLOOD SPECIMENOrdering Facility: [facility] Address: [address] [place] [address] Performed By: #### 5 7021-8 ####[facility] LABCLIA [id number] [place] [address] [place] Hematocrit (Bld) [Volume fraction] 37.7 % Low 39.0-51.0 [facility] Comment on above: Order Comment: Speci men Type: BLOOD SPECIMENOrdering Facility: [facility] Address: [address] [place] [address] Performed By: #### 5 7021-8 ####[facility] LABIA [id number] [place] [address] [place] Hemoglobin (Bld) [Mass/Vol] 11.6 g/dL Low 13.0-17.0 [facility] Comment on above: Order Comment: Speci men Type: BLOOD SPECIMENOrdering Facility: [facility] Address: [address] [place] [address] Performed By: #### 5 7021-8 ####[facility] LABCLIA [id number] [place] [address] [place] Immature granulocytes (Bld) [#/Vol] 10*3/uL Normal <0.10 [facility] Comment on above: Order Comment: Speci men Type: BLOOD SPECIMENOrdering Facility: [facility] Address: [address] [place] [address] Performed By: #### 5 7021-8 ####[facility] LABCLIA [id number] [place] [address] [place] Immature granulocytes/100 WBC (Bld) 0.2 % Normal [facility] Comment on above: Order Comment: Speci men Type: BLOOD SPECIMENOrdering Facility: [facility] Address: [address] [place] [address] Performed By: #### 5 7021-8 ####[facility] LABCLIA [id number] [place] [address] [place] Lymphocytes (Bld) [#/Vol] 2.22 10*3/uL Normal 1.00-4.00 [facility] Comment on above: Order Comment: Speci men Type: BLOOD SPECIMENOrdering Facility: [facility] Address: [address] [place] [address] Performed By: #### 5 7021-8 ####[facility] LABCLIA [id number] [place] [address] [place] Lymphocytes/100 WBC (Bld) 43.6 % Normal [facility] Comment on above: Order Comment: Speci men Type: BLOOD SPECIMENOrdering Facility: [facility] Address: [address] [place] [address] Performed By: #### 5 7021-8 ####[facility] LABIA [id number] [place] [address] [place] MCH (RBC) [Entitic mass] 30.1 pg Normal 26.0-34.0 [facility] Comment on above: Order Comment: Speci men Type: BLOOD SPECIMENOrdering Facility: [facility] Address: [address] [place] [address] Performed By: #### 5 7021-8 ####[facility] LABIA [id number] [place] [address] [place] MCHC (RBC) [Mass/Vol] 30.8 g/dL Normal 30.5-36.0 [facility] Comment on above: Order Comment: Speci men Type: BLOOD SPECIMENOrdering Facility: [facility] Address: [address] [place] [address] Performed By: #### 5 7021-8 ####[facility] LABIA [id number] [place] [address] [place] MCV (RBC) [Entitic vol] 97.7 fL Normal 80.0-100.0 C [facility] Comment on above: Order Comment: Speci men Type: BLOOD SPECIMENOrdering Facility: [facility] Address: [address] [place] [address] Performed By: #### 5 7021-8 ####[facility] LABCLIA [id number] [place] [address] [place] Monocytes (Bld) [#/Vol] 0.45 10*3/uL Normal <0.87 [facility] Comment on above: Order Comment: Speci men Type: BLOOD SPECIMENOrdering Facility: [facility] Address: [address] [place] [address] Performed By: #### 5 7021-8 ####[facility] LABCLIA [id number] [place] [address] [place] Monocytes/100 WBC (Bld) 8.8 % Normal C [facility] Comment on above: Order Comment: Speci men Type: BLOOD SPECIMENOrdering Facility: [facility] Address: [address] [place] [address] Performed By: #### 5 7021-8 ####[facility] LABCLIA [id number] [place] [address] [place] Neutrophils (Bld) [#/Vol] 2.32 10*3/uL Normal 1.45-7.50 [facility] Comment on above: Order Comment: Speci men Type: BLOOD SPECIMENOrdering Facility: [facility] Address: [address] [place] [address] Performed By: #### 5 7021-8 ####[facility] LABCLIA [id number] [place] [address] [place] Neutrophils/100 WBC (Bld) 45.6 % Normal [facility] Comment on above: Order Comment: Speci men Type: BLOOD SPECIMENOrdering Facility: [facility] Address: [address] [place] [address] Performed By: #### 5 7021-8 ####[facility] LABCLIA [id number] [place] [address] [place] Nucleated RBC (Bld) [#/Vol] 10*3/uL Normal <0.01 [facility] Comment on above: Order Comment: Speci men Type: BLOOD SPECIMENOrdering Facility: [facility] Address: [address] [place] [address] Performed By: #### 5 7021-8 ####[facility] LABCLIA [id number] [place] [address] [place] Nucleated RBC/100 WBC (Bld) [Ratio] 0.0 /100 WBC Normal [facility] Comment on above: Order Comment: Speci men Type: BLOOD SPECIMENOrdering Facility: [facility] Address: [address] [place] [address] Performed By: #### 5 7021-8 ####[facility] LABIA [id number] [place] [address] [place] Platelet mean volume (Bld) [Entitic vol] 9.5 fL Normal 9.0-12.7 [facility] Comment on above: Order Comment: Speci men Type: BLOOD SPECIMENOrdering Facility: [facility] Address: [address] [place] [address] Performed By: #### 5 7021-8 ####[facility] LABIA [id number] [place] [address] [place] Platelets (Bld) [#/Vol] 183 10*3/uL Normal 150-400 [facility] Comment on above: Order Comment: Speci men Type: BLOOD SPECIMENOrdering Facility: [facility] Address: [address] [place] [address] Performed By: #### 5 7021-8 ####[facility] LABCLIA [id number] [place] [address] [place] RBC (Bld) [#/Vol] 3.86 10*6/uL Low 4.20-6.00 [facility] Comment on above: Order Comment: Speci men Type: BLOOD SPECIMENOrdering Facility: [facility] Address: [address] [place] [address] Performed By: #### 5 7021-8 ####[facility] LABCLIA [id number] [place] [address] [place] WBC (Bld) [#/Vol] 5.09 10*3/uL Normal 3.70-11.00 [facility] Comment on above: Order Comment: Speci men Type: BLOOD SPECIMENOrdering Facility: [facility] Address: [address] [place] [address] Performed By: #### 5 7021-8 ####[facility] LABCLIA [id number] [place] [address] [place] CNPNon 08-30-2024 CNPN Normal [facility] Iron and Iron binding capaci ty panelon 08-30-2024 Iron [Mass/Vol] 154 ug/dL Normal 41-186 [facility] Comment on above: Order Comment: Speci men Type: BLOOD SPECIMENOrdering Facility: [facility] Address: [address] [place] [address] Performed By: #### 5 0190-8, 2885-2 ####[facility] LABCLIA [id number] [place] [address] [place] Iron binding capacity [Mass/Vol] 363 ug/dL Normal 232-386 [facility] Comment on above: Order Comment: Speci men Type: BLOOD SPECIMENOrdering Facility: [facility] Address: [address] [place] [address] Performed By: #### 5 0190-8, 2885-2 ####[facility] LABCLIA [id number] [place] [address] [place] Iron/TIBC [Molar ratio] 42.4 % Normal 15.0-57.0 [facility] Comment on above: Order Comment: Speci men Type: BLOOD SPECIMENOrdering Facility: [facility] Address: [address] [place] [address] Performed By: #### 5 0190-8, 2885-2 ####[facility] LABCLIA [id number] [place] [address] [place] KAPPA/RODRÍGUEZ,FREE,SERon 2023 Immunoglobulin light chains.kappa.free (S) [Mass/Vol] 30.4 mg/L High 3.3-19.4 [facility] Comment on above: Order Comment: Speci men Type: BLOOD SPECIMENOrdering Facility: [facility] Address: [address] [place] [address] Result Comment: Rare ly, increased serum free light chains levels may not be detected or accurately quantified due to prozone phenomenon or in high viscosity samples using this immunoturbidimetric assay. Correlation with other laboratory results and clinical findings is recommended.The [place] Free Light Chain was performed using the Binding Site Optilite immunoturbidimetric method. Result obtained with different assay methods or kits cannot be used interchangeably. Performed By: #### K LFRS ####[facility] LABIA [id number] [place] [address] [place] Immunoglobulin light chains.kappa/Immunoglobu kevin light chains.lambda (S) [Mass ratio] 1.54 Normal 0.26-1.65 [facility] Comment on above: Order Comment: Speci men Type: BLOOD SPECIMENOrdering Facility: [facility] Address: [address] [place] [address] Performed By: #### K LFRS ####[facility] LABIA [id number] [place] [address] [place] Immunoglobulin light chains.lambda.free [Mass/Vol] 19.8 mg/L Normal 5.7-26.3 [facility] Comment on above: Order Comment: Speci men Type: BLOOD SPECIMENOrdering Facility: [facility] Address: [address] [place] [address] Result Comment: Rare ly, increased serum free light chains levels may not be detected or accurately quantified due to prozone phenomenon or in high viscosity samples using this immunoturbidimetric assay. Correlation with other laboratory results and clinical findings is recommended.The L[place] Free Light Chain was performed using the Binding Site Optilite immunoturbidimetric method. Result obtained with different assay methods or kits cannot be used interchangeably. Performed By: #### K LFRS ####[facility] LABCLIA [id number] [place] [address] [place] PROTEIN ELECTROPHORESIS SERU M (P)on 08-30-2024 Albumin [Mass/Vol] 4.38 g/dL Normal 3.43-5.41 [facility] Comment on above: Order Comment: Speci men Type: BLOOD SPECIMENOrdering Facility: [facility] Address: [address] [place] [address] Performed By: #### L [id number] ####[facility] LABIA [id number] [place] [address] [place] Alpha 1 globulin Elph [Mass/Vol] 0.25 g/dL Normal 0.18-0.43 [facility] Comment on above: Order Comment: Speci men Type: BLOOD SPECIMENOrdering Facility: [facility] Address: [address] [place] [address] Performed By: #### L [id number] ####[facility] LABCLIA [id number] [place] [address] [place] Alpha 2 globulin Elph [Mass/Vol] 0.60 g/dL Normal 0.42-0.98 [facility] Comment on above: Order Comment: Speci men Type: BLOOD SPECIMENOrdering Facility: [facility] Address: [address] [place] [address] Performed By: #### L [id number] ####[facility] LABCLIA [id number] [place] [address] [id number] [address] [place] Beta globulin Elph [Mass/Vol] 0.64 g/dL Normal 0.61-1.17 [facility] Comment on above: Order Comment: Speci men Type: BLOOD SPECIMENOrdering Facility: [facility] Address: [address] [place] [address] Performed By: #### L [id number] ####[facility] LABCLIA [id number] [place] [address] [place] Gamma globulin Elph [Mass/Vol] 0.84 g/dL Normal 0.53-1.51 [facility] Comment on above: Order Comment: Speci men Type: BLOOD SPECIMENOrdering Facility: [facility] Address: [address] [place] [address] Performed By: #### L [id number] ####[facility] LABCLIA [id number] [place] [address] [place] INTERPRETATION COMMENT FOR PROTEIN ELECTROPHORESIS Normal [facility] Comment on above: Order Comment: Speci men Type: BLOOD SPECIMENOrdering Facility: [facility] Address: [address] [place] [address] Performed By: #### L [id number] ####[facility] LABCLIA [id number] [place] [address] [place] M-PROTEIN LOCATION Normal [facility] Comment on above: Order Comment: Speci men Type: BLOOD SPECIMENOrdering Facility: [facility] Address: [address] [place] [address] Result Comment: Not Applicable. Performed By: #### L [id number] ####[facility] LABCLIA [id number] [place] [address] [place] Protein Fractions [Interp] An atypical region of restricted mobility is identified on protein electrophoresis. Abnormal No definitive M protein is identified on protein electrophores is. [facility] Comment on above: Order Comment: Speci men Type: BLOOD SPECIMENOrdering Facility: [facility] Address: [address] [place] [address] Performed By: #### L [id number] ####[facility] LABCLIA [id number] [place] [address] [place] Protein.monoclonal Elph [Mass/Vol] 0.00 g/dL Normal <=0.00 [facility] Comment on above: Order Comment: Speci men Type: BLOOD SPECIMENOrdering Facility: [facility] Address: [address] [place] [address] Performed By: #### L [id number] ####[facility] LABIA [id number] [place] [address] [place] SPE STAFF REVIEW Reviewed by Bhavin Kilgore MD, Ph.D ([id number]) Normal [facility] Comment on above: Order Comment: Speci men Type: BLOOD SPECIMENOrdering Facility: [facility] Address: [address] [place] [address] Performed By: #### L [id number] ####[facility] LABIA [id number] [place] [address] [place] Prot SerPl-mCncon 08-30-2024 Protein [Mass/Vol] 6.7 g/dL Normal 6.3-8.0 [facility] Comment on above: Order Comment: Speci men Type: BLOOD SPECIMENOrdering Facility: [facility] Address: [address] [place] [address] Performed By: #### 5 0190-8, 2885-2 ####[facility] LABCLIA [id number] [place] [address] [place] Prot Ur-mCncon 08-30-2024 Protein (U) [Mass/Vol] 12 mg/dL Normal 0-20 [facility] Comment on above: Order Comment: Speci men Type: URINE SPECIMENOrdering Facility: [facility] Address: [address] [place] [address] Performed By: #### 2 888-6 ####[facility] LABCLIA [id number] [place] [address] [place] URINE PROTEIN ELECTROPHORESI S RANDOM (P)on 08-30-2024 Albumin Elph (U) [Mass fraction] 45.37 % Normal [facility] Comment on above: Order Comment: Speci men Type: URINE SPECIMENOrdering Facility: [facility] Address: [address] [place] [address] Performed By: #### L [id number] ####[facility]IA [id number] [place] [address] [place] Alpha 1 globulin Elph (U) [Mass fraction] 2.32 % Normal [facility] Comment on above: Order Comment: Speci men Type: URINE SPECIMENOrdering Facility: [facility] Address: [address] [place] [address] Performed By: #### L [id number] ####[facility]IA [id number] [place] [address] [place] Alpha 2 globulin Elph (U) [Mass fraction] 9.34 % Normal [facility] Comment on above: Order Comment: Speci men Type: URINE SPECIMENOrdering Facility: [facility] Address: [address] [place] [address] Performed By: #### L [id number] ####[facility]IA [id number] [place] [address] [place] Beta globulin Elph (U) [Mass fraction] 26.99 % Normal [facility] Comment on above: Order Comment: Speci men Type: URINE SPECIMENOrdering Facility: [facility] Address: [address] [place] [address] Performed By: #### L [id number] ####[facility] [id number] [place] [address] [place] Gamma globulin Elph (U) [Mass fraction] 15.98 % Normal [facility] Comment on above: Order Comment: Speci men Type: URINE SPECIMENOrdering Facility: [facility] Address: [address] [place] [address] Performed By: #### L [id number] ####[facility] [id number] [place] [id number] [place] Protein Fractions Elph Wale (U) [Interp] No definitive M protein is identified on protein electrophoresis. Normal No definitive M protein is identified on protein electrophores is. [facility] Comment on above: Order Comment: Speci men Type: URINE SPECIMENOrdering Facility: [facility] Address: [address] [place] [address] Performed By: #### L [id number] ####[facility] [id number] OF [place] STAFF REVIEW (URINE ELECTRO) Reviewed by Bhavin Kilgore MD, Ph.D ([id number]) Normal [facility] Comment on above: Order Comment: Speci men Type: URINE SPECIMENOrdering Facility: [facility] Address: [address] [place] [address] Performed By: #### L [id number] ####[facility] [id number] [place] [address] [place] NCS and/or EMG Patienton NCS and/or EMG Patient [facility] Pulmonary Services/Neurology [address] [place] [address] MR#: [id number] Acct: [id number] Name: JAVIER BOND Rep #: [id number] : 1940 83 From: Eduardo Herbert MD Referring Dr: Francisco Bahena MD Status: REG CLI Location: [facility] Date: 08/29/24 Sex: M C NCS and/or EMG Patient Report Ordering Doctor: Francisco Bahena DATE OF SERVICE: 08/29/24 Javier presents with complaints of bilateral leg weakness and numbness. He has a history of lower back fusion. Electrodiagnostic findings: Left peroneal motor nerve demonstrates normal distal latency with reduced amplitude and reduced conduction velocity. Right peroneal motor nerve demonstrates normal distal latency with reduced amplitude and reduced conduction velocity. Tibial motor response demonstrates normal distal latency on the left side with reduced amplitude and normal conduction velocity. Right tibial motor nerve demonstrates prolonged latency with reduced amplitude and normal conduction velocity. Prolonged tibial and peroneal F???waves. Prolonged H???reflex bilaterally. Sensory responses were not obtainable. Needle EMG testing was performed in the lower limbs of motor units of increased amplitude and duration noted bilaterally in the anterior tibialis and gastrocnemius. There is decreased recruitment pattern in the right vastus medialis. Electrodiagnostic impression: This is an abnormal study in the lower limbs 1. 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 There is a combination of axonal loss and demyelination. 2. No electrodiagnostic evidence is noted for lumbosacral radiculopathy. Multi Select Codes Neurology Neurology Interp Codes: 16906-69 Musc test done w/n test comp (interp) (2) and 17380-45 Nrv cndj test 9-10 studies (interp) 08/29/24 1426 Date Eduardo Herbert MD CC: Dr. Eduardo Herbert MD; Dr. Francisco Bahena MD Date Dictated: 08/29/241405 Date Transcribed: 08/29/241405 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: AA Signed Normal [facility] CNPNon 08-08-2024 CNPN Normal [facility] CBC W Auto Differential pane l (Bld)on 08-07-2024 Basophils (Bld) [#/Vol] 0.05 10*3/uL Normal <0.11 [facility] Comment on above: Order Comment: Speci men Type: BLOOD SPECIMENOrdering Facility: [facility] Address: [address] [place] [address] Performed By: #### 5 7021-8 ####[facility] LABCLIA [id number] [place] [address] [place] Basophils/100 WBC (Bld) 1.1 % Normal C [facility] Comment on above: Order Comment: Speci men Type: BLOOD SPECIMENOrdering Facility: [facility] Address: [address] [place] [address] Performed By: #### 5 7021-8 ####[facility] LABCLIA [id number] [place] [address] [place] Differential cell count method Nom (Bld) Auto Normal [facility] Comment on above: Order Comment: Speci men Type: BLOOD SPECIMENOrdering Facility: [facility] Address: [address] [place] [address] Performed By: #### 5 7021-8 ####[facility] LABCLIA [id number] [place] [address] [place] Eosinophils (Bld) [#/Vol] 0.06 10*3/uL Normal <0.46 [facility] Comment on above: Order Comment: Speci men Type: BLOOD SPECIMENOrdering Facility: [facility] Address: [address] [place] [address] Performed By: #### 5 7021-8 ####[facility] LABCLIA [id number] [place] [address] [place] Eosinophils/100 WBC (Bld) 1.4 % Normal [facility] Comment on above: Order Comment: Speci men Type: BLOOD SPECIMENOrdering Facility: [facility] Address: [address] [place] [address] Performed By: #### 5 7021-8 ####[facility] LABCLIA [id number] [place] [address] [place] Erythrocyte distribution width (RBC) [Ratio] 13.8 % Normal 11.5-15.0 [facility] Comment on above: Order Comment: Speci men Type: BLOOD SPECIMENOrdering Facility: [facility] Address: [address] [place] [address] Performed By: #### 5 7021-8 ####[facility] LABCLIA [id number] [place] [address] [place] Hematocrit (Bld) [Volume fraction] 35.9 % Low 39.0-51.0 [facility] Comment on above: Order Comment: Speci men Type: BLOOD SPECIMENOrdering Facility: [facility] Address: [address] [place] [address] Performed By: #### 5 7021-8 ####[facility] LABCLIA [id number] [place] [address] [place] Hemoglobin (Bld) [Mass/Vol] 10.8 g/dL Low 13.0-17.0 [facility] Comment on above: Order Comment: Speci men Type: BLOOD SPECIMENOrdering Facility: [facility] Address: [address] [place] [address] Performed By: #### 5 7021-8 ####[facility] [id number] [place] [address] [place] Immature granulocytes (Bld) [#/Vol] 10*3/uL Normal <0.10 [facility] Comment on above: Order Comment: Speci men Type: BLOOD SPECIMENOrdering Facility: [facility] Address: [address] [place] [address] Performed By: #### 5 7021-8 ####[facility] LABCLIA [id number] [place] [address] [place] Immature granulocytes/100 WBC (Bld) 0.0 % Normal [facility] Comment on above: Order Comment: Speci men Type: BLOOD SPECIMENOrdering Facility: [facility] Address: [address] [place] [address] Performed By: #### 5 7021-8 ####[facility]CLIA [id number] [place] [address] [place] Lymphocytes (Bld) [#/Vol] 1.92 10*3/uL Normal 1.00-4.00 [facility] Comment on above: Order Comment: Speci men Type: BLOOD SPECIMENOrdering Facility: [facility] Address: [address] [place] [address] Performed By: #### 5 7021-8 ####[facility] [id number] [place] [address] [place] Lymphocytes/100 WBC (Bld) 43.5 % Normal [facility] Comment on above: Order Comment: Speci men Type: BLOOD SPECIMENOrdering Facility: [facility] Address: [address] [place] [address] Performed By: #### 5 7021-8 ####[facility] [id number] [place] [address] [place] MCH (RBC) [Entitic mass] 29.0 pg Normal 26.0-34.0 [facility] Comment on above: Order Comment: Speci men Type: BLOOD SPECIMENOrdering Facility: [facility] Address: [address] [place] [address] Performed By: #### 5 7021-8 ####[facility] [id number] [place] [address] [place] MCHC (RBC) [Mass/Vol] 30.1 g/dL Low 30.5-36.0 [facility] Comment on above: Order Comment: Speci men Type: BLOOD SPECIMENOrdering Facility: [facility] Address: [address] [place] [address] Performed By: #### 5 7021-8 ####[facility] [id number] [place] [address] [place] MCV (RBC) [Entitic vol] 96.2 fL Normal 80.0-100.0 C [facility] Comment on above: Order Comment: Speci men Type: BLOOD SPECIMENOrdering Facility: [facility] Address: [address] [place] [address] Performed By: #### 5 7021-8 ####[facility] LABCLIA [id number] [place] [address] [place] Monocytes (Bld) [#/Vol] 0.46 10*3/uL Normal <0.87 [facility] Comment on above: Order Comment: Speci men Type: BLOOD SPECIMENOrdering Facility: [facility] Address: [address] [place] [address] Performed By: #### 5 7021-8 ####[facility]CLIA [id number] [place] [address] [place] Monocytes/100 WBC (Bld) 10.4 % Normal [facility] Comment on above: Order Comment: Speci men Type: BLOOD SPECIMENOrdering Facility: [facility] Address: [address] [place] [address] Performed By: #### 5 7021-8 ####[facility]CLIA [id number] [place] [address] [place] Neutrophils (Bld) [#/Vol] 1.92 10*3/uL Normal 1.45-7.50 [facility] Comment on above: Order Comment: Speci men Type: BLOOD SPECIMENOrdering Facility: [facility] Address: [address] [place] [address] Performed By: #### 5 7021-8 ####[facility]CL[facility] [id number] [place] [address] [place] Neutrophils/100 WBC (Bld) 43.6 % Normal [facility] Comment on above: Order Comment: Speci men Type: BLOOD SPECIMENOrdering Facility: [facility] Address: [address] [place] [address] Performed By: #### 5 7021-8 ####[facility]CLIA [id number] [place] [address] [place] Nucleated RBC (Bld) [#/Vol] 10*3/uL Normal <0.01 [facility] Comment on above: Order Comment: Speci men Type: BLOOD SPECIMENOrdering Facility: [facility] Address: [address] [place] [address] Performed By: #### 5 7021-8 ####[facility] LABCLIA [id number] [place] [address] [place] Nucleated RBC/100 WBC (Bld) [Ratio] 0.0 /100 WBC Normal [facility] Comment on above: Order Comment: Speci men Type: BLOOD SPECIMENOrdering Facility: [facility] Address: [address] [place] [address] Performed By: #### 5 7021-8 ####[facility] LABCLIA [id number] [place] [address] [place] Platelet mean volume (Bld) [Entitic vol] 9.2 fL Normal 9.0-12.7 [facility] Comment on above: Order Comment: Speci men Type: BLOOD SPECIMENOrdering Facility: [facility] Address: [address] [place] [address] Performed By: #### 5 7021-8 ####[facility]IA [id number] [place] [address] [place] Platelets (Bld) [#/Vol] 220 10*3/uL Normal 150-400 [facility] Comment on above: Order Comment: Speci men Type: BLOOD SPECIMENOrdering Facility: [facility] Address: [address] [place] [address] Performed By: #### 5 7021-8 ####[facility] LABCLIA [id number] [place] [address] [place] RBC (Bld) [#/Vol] 3.73 10*6/uL Low 4.20-6.00 [facility] Comment on above: Order Comment: Speci men Type: BLOOD SPECIMENOrdering Facility: [facility] Address: [address] [place] [address] Performed By: #### 5 7021-8 ####[facility] LABCLIA [id number] [place] [address] [place] WBC (Bld) [#/Vol] 4.41 10*3/uL Normal 3.70-11.00 [facility] Comment on above: Order Comment: Speci men Type: BLOOD SPECIMENOrdering Facility: [facility] Address: [address] [place] [address] Performed By: #### 5 7021-8 ####[facility] LABCLIA [id number] [place] [address] [place] Iron and Iron binding capaci ty panelon 08-07-2024 Iron [Mass/Vol] 39 ug/dL Low 41-186 [facility] Comment on above: Order Comment: Speci men Type: BLOOD SPECIMENOrdering Facility: [facility] Address: [address] [place] [address] Performed By: #### 5 0190-8 ####[facility]CL[facility] [id number] [place] [address] [place] Iron binding capacity [Mass/Vol] 381 ug/dL Normal 232-386 [facility] Comment on above: Order Comment: Speci men Type: BLOOD SPECIMENOrdering Facility: [facility] Address: [address] [place] [address] Performed By: #### 5 0190-8 ####[facility]CL[facility] [id number] [place] [address] [place] Iron/TIBC [Molar ratio] 10.2 % Low 15.0-57.0 C [facility] Comment on above: Order Comment: Speci men Type: BLOOD SPECIMENOrdering Facility: [facility] Address: [address] [place] [address] Performed By: #### 5 0190-8 ####[facility]CL[facility] [id number] [address] [address] [place] CNPNon 07-30-2024 CNPN Normal [facility] CT ABD/PEL W IVCONon 024 CT ABD/PEL W IVCON Normal [facility] CNTHERAPYon 07-23-2024 CNTHERAPY Normal [facility] CNPNon 07-05-2024 CNPN Normal [facility] [id number] 07-04-2024 [id number] Normal [facility] CNTHERAPYon 07-04-2024 CNTHERAPY Normal [facility] Ferritin SerPl-mCncon 2023 Ferritin [Mass/Vol] 39.3 ng/mL Normal 30.3-565.7 [facility] Comment on above: Order Comment: Speci men Type: BLOOD SPECIMENOrdering Facility: [facility] Address: [address] [place] [address] Performed By: #### 2 276-4, 05756-1 ####[facility] [id number] [place] [address] [place] Iron and Iron binding capaci ty panelon 07-04-2024 Iron [Mass/Vol] 14 ug/dL Low 41-186 [facility] Comment on above: Order Comment: Speci men Type: BLOOD SPECIMENOrdering Facility: [facility] Address: [address] [place] [address] Performed By: #### 2 276-4, 92692-6 ####[facility] [id number] [place] [id number] [place] Iron binding capacity [Mass/Vol] 391 ug/dL High 232-386 [facility] Comment on above: Order Comment: Speci men Type: BLOOD SPECIMENOrdering Facility: [facility] Address: [address] [place] [address] Performed By: #### 2 276-4, 25914-4 ####[facility] [id number] [place] [id number] [place] Iron/TIBC [Molar ratio] 3.6 % Low 15.0-57.0 C [facility] Comment on above: Order Comment: Speci men Type: BLOOD SPECIMENOrdering Facility: [facility] Address: [address] [place] [address] [place] [address] Performed By: #### 2 276-4, 55189-7 ####[facility] LABCLIA [id number] [place] [id number] [place] THERAPY NTon 07-04-2024 THERAPY NT Normal [facility] OT General Evaluationon OT General Evaluation [facility] Occupational Therapy Health[address] [place] [address] / REHABILITATION SERVICES INITIAL EVALUATION MR#: [id number] Acct: [id number] Name: JAVIER BOND Rep #: [id number] : 1940 83 From: Stephany Staley Referring Dr.: FRANCINE Roque Status: RE G [facility] Date: SELF PAY INSURANCE Patient's Visit Information Visit Information Visit Information: JAVIER BOND is a 83 year old M, referred to Occupational Therapy by FRANCINE Lacy, with a diagnosis of B hand pain. Date of Evaluation: 06/27/24 Occupational Therapist: Stephany Staley Subjective Subjective: This 83 year old male with dx of B hand pain. pt noticed change in hand function and pain approx 6 months ago. pt is limited in functional abilities due to pain however believed strength has not changed. 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 Pt is R handed. denies numbness or tingling of hands. pt has had surgery to B thumbs years ago however unable to recall what for. pt is currently limited in day to day tasks due to pain in B hands indicating need for OT at this time. Pain B hand: Current Pain Intensity: 4 Objective Objective/Observation: pt arrives using rollator to complete mobility back to room. pt with muscle atrophy to han aspect of hand as well as web space. no swelling noted in hands. L hand with old scar from incision of thumb ROM Shoulder: wfl Forearm: wfl Wrist: B WFL Opposition: B WFL MP: wfl PIP: wfl DIP: wfl ROM Comments: L wrist pain with extension tightness with hook fist Strength Grainer Machine: L 45# R 60# Lateral Pinch: L 0# R5# Tripod Pinch: L0# R 8# Edema Other: none Sensation Sensation Comments: denies Quick DASH-Disab of Arm,Shoulder Hand Quick DASH Score: 56.8175 Goals Goal:: pt will improve L mortgage loan reviewer strength equal to greater than R side (60#) in order to maximize I in self care tasks pt will improve L lateral pinch strength equal to or greater than R side (5#) in order to maximize I in self care and IADL tasks pt will improve L tripod pinch strength equal to or greater than R side (8#) in order to maximize I in self care and IADL tasks Goal:: pt will report decrease pain of 1/10 or less B hands during functional tasks Goal:: pt will verbalize/ demonstrate 100% accuracy in proper joint positioning and protection to decrease pain during daily functional tasks Goal:: pt will improve quick dash score by 10 points or more (56.81) in order to maximize overall functional use of B hands Goal:: pt will verbalize/ demonstrate at least x2 adaptive/ compensatory strategies/ tools to utilize daily in order to maximize I in day to day tasks (such as built up handle of rollator) pt will verbalize/ demonstrate 100% accuracy and carryover in recommended bracing as needed for pain management Rehabilitation General Assessment: This 83 year old male arrives with order for B hand pain. Pt is limited in daily functional tasks due to pain in B hands. pt B hand AROM is within normal limits however has difficulty completing tasks due to movement causing pain. pt does demonstrate decreased L hand and pinch strength compare to R as well as muscle wasting in hand. pt would benefit from OT services 1- 2x a week for 4-6 weeks in order to decrease pain and improve functional use of B hands day to day. Rehabilitation Potential: Good Anticipated Interventions Anticipated Interventions: A/AAROM/PROM, Strengthening, Triggerpoint Release, Modalities, Orthoses, Joint Protection/Energy Conservation, Education re assistive Equipment, Education re Diagnosis and Home Program Visit Plan Frequency: 1-2x /Week Duration: 4-6 Weeks General Plan: AROM/AAROM/PROM trigger point release pain management bracing activity modification TEXT: Thank you for the opportunity to evaluate your patient. For Medicare and Medicare HMO plans, please review the plan of care and approve it. It will need to be FAXED BACK to us at [phone] for Medicare purposes. Please let me know if there are questions or concerns regarding this plan of care. Physician Signature: Date:__ 06/27/241812 CC: FRANCINE Roque; Dr. Francisco Bahena MD CK Signed For Medicare only, by signing this I certify the plan of care. Physicians Signature Date Normal [facility] CNOVon 06-26-2024 CNOV Normal [facility] CNOVon 06-25-2024 CNOV Normal [facility] CNPNon 06-21-2024 CNPN Normal [facility] MANOLO BY IFA SCREENon 06-15-20 Nuclear Ab Ql (S) Negative Normal Negative [facility] Comment on above: Order Comment: Speci men Type: BLOOD SPECIMENOrdering Facility: [facility] Address: [address] [place] [address] Result Comment: Anti -nuclear antibody test is used as an aid in diagnosis of systemic autoimmune diseases. Where positive and clinically warranted, follow-up using disease-specific testing is recommended. Low positive titers are not uncommon with advanced age, certain chronic infections, and malignancies among others.Test methodology: Indirect fluorescence immunoassay (IFA) using HEp-2 cells. Performed By: #### A NAIFS ####[facility]CLIA [id number] [address] [address] [place] CK SerPl-cCncon 06-15-2024 CK [Catalytic activity/Vol] 170 U/L Normal 51-298 [facility] Comment on above: Order Comment: Speci men Type: BLOOD SPECIMENOrdering Facility: [facility] Address: [address] [place] [address] Performed By: #### 2 157-6, 54756-8, 1986-01 ####[facility]IA [id number] [place] [address] [place] CNOVon 06-15-2024 CNOV Normal [facility] CRP SerPl-mCncon 06-15-2024 CRP [Mass/Vol] mg/L Normal <0.9 [facility] Comment on above: Order Comment: Speci men Type: BLOOD SPECIMENOrdering Facility: [facility] Address: [address] [place] [address] Performed By: #### 2 157-6, 87064-0, 1986-01 ####[facility]IA [id number] [place] [address] [place] ESR Westergren method (Bld) [Velocity]on 06-15-2024 ESR (Bld) [Velocity] 5 mm/h Normal 0-15 [facility] Comment on above: Order Comment: Speci men Type: BLOOD SPECIMENOrdering Facility: [facility] Address: [address] [place] [address] Performed By: #### 4 537-7 ####[facility] [id number] [place] [address] [place] Rheumatoid fact SerPl-aCncon 06-15-2024 Rheumatoid factor Qn 84 [IU]/mL High <16 [facility] Comment on above: Order Comment: Speci men Type: BLOOD SPECIMENOrdering Facility: [facility] Address: [address] [place] [address] Performed By: #### 2 157-6, 24169-3, 1986-01 ####[facility]CLIA [id number] [address] [address] [place] XR HAND 3V PA/LAT/OBL BILon 06-15-2024 XR HAND 3V PA/LAT/OBL MARIO Normal [facility] Basic metabolic 2000 panelon 06-07-2024 Anion gap [Moles/Vol] 11 mmol/L Normal 8-15 [facility] Comment on above: Order Comment: Speci men Type: BLOOD SPECIMENOrdering Facility: [facility] Address: [address] [place] [address] Performed By: #### L IPNF, 67411-6 ####[facility] LABCLIA [id number] [place] [address] [place] Calcium [Mass/Vol] 9.7 mg/dL Normal 8.5-10.2 [facility] Comment on above: Order Comment: Speci men Type: BLOOD SPECIMENOrdering Facility: [facility] Address: [address] [place] [address] Performed By: #### L IPNF, 73796-6 ####[facility] LABCLIA [id number] [place] [address] [place] Chloride [Moles/Vol] 101 mmol/L Normal 98-107 [facility] Comment on above: Order Comment: Speci men Type: BLOOD SPECIMENOrdering Facility: [facility] Address: [address] [place] [address] Performed By: #### L IPNF, 27508-8 ####[facility] LABCLIA [id number] [place] [address] [place] CO2 [Moles/Vol] 26 mmol/L Normal 22-30 [facility] Comment on above: Order Comment: Speci men Type: BLOOD SPECIMENOrdering Facility: [facility] Address: [address] [place] [address] Performed By: #### L IPNF, 48575-4 ####[facility] LABIA [id number] [place] [id number] [place] Creatinine [Mass/Vol] 0.99 mg/dL Normal 0.73-1.22 [facility] Comment on above: Order Comment: Manpreet macias Type: BLOOD SPECIMENOrdering Facility: [facility] Address: [address] [place] [address] Performed By: #### L KANDY, 87608-4 ####[facility] LABIA [id number] [place] [address] [place] Creatinine and Glomerular filtration rate.predicted panel (S/P/Bld) 77 mL/min/1.73m??? Normal >=60 [facility] Comment on above: Order Comment: Manpreet macias Type: BLOOD SPECIMENOrdering Facility: [facility] Address: [address] [place] [address] Result Comment: [place] mated Glomerular Filtration Rate (eGFR) is calculated using the 2020 CKD-EPI creatinine equation. This equation utilizes serum creatinine, sex, and age as parameters. The creatinine assay has traceable calibration to isotope dilution-mass spectrometry. Refer to KDIGO guidelines for clinical interpretation. In patients with unstable renal function, e.g. those with acute kidney injury, the eGFR may not accurately reflect actual GFR. Performed By: #### L JEREMIAH, 80508-8 ####[facility] LABIA [id number] [place] [address] [place] Glucose [Mass/Vol] 101 mg/dL High 74-99 [facility] Comment on above: Order Comment: Speci colleen Type: BLOOD SPECIMENOrdering Facility: [facility] Address: [address] [place] [address] Result Comment: The [place] Diabetes Association (ADA) provides guidance for cutoff values for fasting glucose and random glucose. The ADA defines fasting as no caloric intake for at least 8 hours. Fasting plasma glucose results between 100 to 125 mg/dL indicate increased risk for diabetes (prediabetes).Fasting plasma glucose results greater than or equal to 126 mg/dL meet the criteria for diagnosis of diabetes. In the absence of unequivocal hyperglycemia, results should be confirmed by repeat testing. In a patient with classic symptoms of hyperglycemia or hyperglycemic crisis, random plasma glucose results greater than or equal to 200 mg/dL meet the criteria for diagnosis of diabetes.Reference: Standards of Medical Care in Diabetes 2016, [place] Diabetes Association. Diabetes Care. 2016.39(Suppl 1). Performed By: #### L IPCARMEN, 51926-6 ####[facility] LABCLIA [id number] [place] [address] [place] Potassium [Moles/Vol] 4.4 mmol/L Normal 3.7-5.1 [facility] Comment on above: Order Comment: Speci men Type: BLOOD SPECIMENOrdering Facility: [facility] Address: [address] [place] [address] Performed By: #### L IPCARMEN, 62422-8 ####[facility] LABCLIA [id number] [place] [address] [place] Sodium [Moles/Vol] 138 mmol/L Normal 136-144 [facility] Comment on above: Order Comment: Speci men Type: BLOOD SPECIMENOrdering Facility: [facility] Address: [address] [place] [address] Performed By: #### L IPNF, 64995-5 ####[facility] LABCLIA [id number] [place] [address] [place] Urea nitrogen [Mass/Vol] 23 mg/dL Normal 9-24 [facility] Comment on above: Order Comment: Speci men Type: BLOOD SPECIMENOrdering Facility: [facility] Address: [address] [place] [address] Performed By: #### L IPNF, 78364-0 ####[facility] LABCLIA [id number] [place] [address] [place] CBC W Auto Differential pane l (Bld)on 06-07-2024 Basophils (Bld) [#/Vol] 0.04 10*3/uL Normal <0.11 [facility] Comment on above: Order Comment: Speci men Type: BLOOD SPECIMENOrdering Facility: [facility] Address: [address] [place] [address] Performed By: #### 5 7021-8 ####[facility] LABCLIA [id number] [place] [address] [place] Basophils/100 WBC (Bld) 0.9 % Normal [facility] Comment on above: Order Comment: Speci men Type: BLOOD SPECIMENOrdering Facility: [facility] Address: [address] [place] [address] Performed By: #### 5 7021-8 ####[facility] LABCLIA [id number] [place] [address] [place] Differential cell count method Nom (Bld) Auto Normal [facility] Comment on above: Order Comment: Speci men Type: BLOOD SPECIMENOrdering Facility: [facility] Address: [address] [place] [address] Performed By: #### 5 7021-8 ####[facility] LABCLIA [id number] [place] [address] [place] Eosinophils (Bld) [#/Vol] 0.05 10*3/uL Normal <0.46 [facility] Comment on above: Order Comment: Speci men Type: BLOOD SPECIMENOrdering Facility: [facility] Address: [address] [place] [address] Performed By: #### 5 7021-8 ####[facility] LABCLIA [id number] [place] [address] [place] Eosinophils/100 WBC (Bld) 1.1 % Normal [facility] Comment on above: Order Comment: Speci men Type: BLOOD SPECIMENOrdering Facility: [facility] Address: [address] [place] [address] Performed By: #### 5 7021-8 ####[facility] LABCLIA [id number] [place] [address] [place] Erythrocyte distribution width (RBC) [Ratio] 13.0 % Normal 11.5-15.0 [facility] Comment on above: Order Comment: Speci men Type: BLOOD SPECIMENOrdering Facility: [facility] Address: [address] [place] [address] Performed By: #### 5 7021-8 ####[facility] LABIA [id number] [place] [address] [place] Hematocrit (Bld) [Volume fraction] 35.7 % Low 39.0-51.0 [facility] Comment on above: Order Comment: Speci men Type: BLOOD SPECIMENOrdering Facility: [facility] Address: [address] [place] [address] Performed By: #### 5 7021-8 ####[facility] LABIA [id number] [place] [address] [place] Hemoglobin (Bld) [Mass/Vol] 11.2 g/dL Low 13.0-17.0 [facility] Comment on above: Order Comment: Speci men Type: BLOOD SPECIMENOrdering Facility: [facility] Address: [address] [place] [address] Performed By: #### 5 7021-8 ####[facility] LABIA [id number] [place] [address] [place] Immature granulocytes (Bld) [#/Vol] 10*3/uL Normal <0.10 [facility] Comment on above: Order Comment: Speci men Type: BLOOD SPECIMENOrdering Facility: [facility] Address: [address] [place] [address] Performed By: #### 5 7021-8 ####[facility] LABIA [id number] [place] [address] [place] Immature granulocytes/100 WBC (Bld) 0.0 % Normal [facility] Comment on above: Order Comment: Speci men Type: BLOOD SPECIMENOrdering Facility: [facility] Address: [address] [place] [address] Performed By: #### 5 7021-8 ####[facility] LABCLIA [id number] [place] [address] [place] Lymphocytes (Bld) [#/Vol] 1.90 10*3/uL Normal 1.00-4.00 [facility] Comment on above: Order Comment: Speci men Type: BLOOD SPECIMENOrdering Facility: [facility] Address: [address] [place] [address] Performed By: #### 5 7021-8 ####[facility] LABCLIA [id number] [place] [address] [place] Lymphocytes/100 WBC (Bld) 43.0 % Normal [facility] Comment on above: Order Comment: Speci men Type: BLOOD SPECIMENOrdering Facility: [facility] Address: [address] [place] [address] Performed By: #### 5 7021-8 ####[facility] LABIA [id number] [place] [address] [place] MCH (RBC) [Entitic mass] 29.7 pg Normal 26.0-34.0 [facility] Comment on above: Order Comment: Speci men Type: BLOOD SPECIMENOrdering Facility: [facility] Address: [address] [place] [address] Performed By: #### 5 7021-8 ####[facility] LABIA [id number] [place] [address] [place] MCHC (RBC) [Mass/Vol] 31.4 g/dL Normal 30.5-36.0 [facility] Comment on above: Order Comment: Speci men Type: BLOOD SPECIMENOrdering Facility: [facility] Address: [address] [place] [address] Performed By: #### 5 7021-8 ####[facility] LABCLIA [id number] [place] [address] [place] MCV (RBC) [Entitic vol] 94.7 fL Normal 80.0-100.0 [facility] Comment on above: Order Comment: Speci men Type: BLOOD SPECIMENOrdering Facility: [facility] Address: [address] [place] [address] Performed By: #### 5 7021-8 ####[facility] LABIA [id number] [place] [address] [place] Monocytes (Bld) [#/Vol] 0.42 10*3/uL Normal <0.87 [facility] Comment on above: Order Comment: Speci men Type: BLOOD SPECIMENOrdering Facility: [facility] Address: [address] [place] [address] Performed By: #### 5 7021-8 ####[facility] LABIA [id number] [place] [address] [place] Monocytes/100 WBC (Bld) 9.5 % Normal [facility] Comment on above: Order Comment: Speci men Type: BLOOD SPECIMENOrdering Facility: [facility] Address: [address] [place] [address] Performed By: #### 5 7021-8 ####[facility] LABIA [id number] [place] [address] [place] Neutrophils (Bld) [#/Vol] 2.01 10*3/uL Normal 1.45-7.50 [facility] Comment on above: Order Comment: Speci men Type: BLOOD SPECIMENOrdering Facility: [facility] Address: [address] [place] [address] Performed By: #### 5 7021-8 ####[facility] LABIA [id number] [place] [address] [place] Neutrophils/100 WBC (Bld) 45.5 % Normal [facility] Comment on above: Order Comment: Speci men Type: BLOOD SPECIMENOrdering Facility: [facility] Address: [address] [place] [address] Performed By: #### 5 7021-8 ####[facility] LABCLIA [id number] [place] [address] [place] Nucleated RBC (Bld) [#/Vol] 10*3/uL Normal <0.01 [facility] Comment on above: Order Comment: Speci men Type: BLOOD SPECIMENOrdering Facility: [facility] Address: [address] [place] [address] Performed By: #### 5 7021-8 ####[facility] LABIA [id number] [place] [address] [place] Nucleated RBC/100 WBC (Bld) [Ratio] 0.0 /100 WBC Normal [facility] Comment on above: Order Comment: Speci men Type: BLOOD SPECIMENOrdering Facility: [facility] Address: [address] [place] [address] Performed By: #### 5 7021-8 ####[facility] LABIA [id number] [place] [address] [place] Platelet mean volume (Bld) [Entitic vol] 9.8 fL Normal 9.0-12.7 [facility] Comment on above: Order Comment: Speci men Type: BLOOD SPECIMENOrdering Facility: [facility] Address: [address] [place] [address] Performed By: #### 5 7021-8 ####[facility] LABIA [id number] [place] [address] [place] Platelets (Bld) [#/Vol] 191 10*3/uL Normal 150-400 [facility] Comment on above: Order Comment: Speci men Type: BLOOD SPECIMENOrdering Facility: [facility] Address: [address] [place] [address] Performed By: #### 5 7021-8 ####[facility] LABCLIA [id number] [place] [id number] [place] RBC (Bld) [#/Vol] 3.77 10*6/uL Low 4.20-6.00 [facility] Comment on above: Order Comment: Speci men Type: BLOOD SPECIMENOrdering Facility: [facility] Address: [address] [place] [address] Performed By: #### 5 7021-8 ####[facility] LABIA [id number] [place] [address] [place] WBC (Bld) [#/Vol] 4.42 10*3/uL Normal 3.70-11.00 [facility] Comment on above: Order Comment: Speci men Type: BLOOD SPECIMENOrdering Facility: [facility] Address: [address] [place] [address] Performed By: #### 5 7021-8 ####[facility] LABIA [id number] [place] [address] [place] CNOVon 06-07-2024 CNOV Normal [facility] HbA1c (Bld)on 06-07-2024 Average glucose Estimated from glycated hemoglobin (Bld) [Mass/Vol] 111 mg/dL Normal [facility] Comment on above: Order Comment: Speci men Type: BLOOD SPECIMENOrdering Facility: [facility] Address: [address] [place] [address] Result Comment: eAG: (Estimated average glucose) is a calculated value from HgbA1c and is telemarketing representative of the average blood glucose level in the last 2-3 month period. Performed By: #### 5 5454-3 ####[facility] LABIA [id number] [place] [id number] [place] HbA1c (Bld) [Mass fraction] 5.5 % Normal 4.3-5.6 [facility] Comment on above: Order Comment: Speci men Type: BLOOD SPECIMENOrdering Facility: [facility] Address: [address] [place] [address] Result Comment: [place] Diabetes Association guidelines indicate that patients with HgbA1c in the range 5.7-6.4% are at increased risk for development of diabetes, and intervention by lifestyle modification may be beneficial. HgbA1c greater or equal to 6.5% is considered diagnostic of diabetes. Performed By: #### 5 5454-3 ####[facility] LABCLIA [id number] [place] [address] [place] LIPID PANEL, NONFASTINGon Cholesterol [Mass/Vol] 134 mg/dL Normal <200 [facility] Comment on above: Order Comment: Manpreet men Type: BLOOD SPECIMENOrdering Facility: [facility] Address: [address] [place] [address] Result Comment: <200 mg/dL, Desirable 200-239 mg/dL, Borderline high>239 mg/dL, High Performed By: #### L IPNF, 21911-0 ####[facility] LABCLIA [id number] [place] [address] [place] HDL CHOLESTEROL, NF 76 mg/dL Normal >39 [facility] Comment on above: Order Comment: Manpreet colleen Type: BLOOD SPECIMENOrdering Facility: [facility] Address: [address] [place] [address] Result Comment: 40-5 9 mg/dL, Acceptable>59 mg/dL, High: Negative risk factor for coronary heart disease<40 mg/dL, Low: Positive risk factor for coronary heart disease Performed By: #### L IPNF, 03937-5 ####[facility] LABCLIA [id number] [place] [address] [place] LDL CHOLESTEROL, NF 49 mg/dL Normal <100 [facility] Comment on above: Order Comment: Salvatorei men Type: BLOOD SPECIMENOrdering Facility: [facility] Address: [address] [place] [address] Result Comment: <100 mg/dL, Optimal 100-129 mg/dL, Near optimal/above optimal 130-159 mg/dL, Borderline high 160-189 mg/dL, High>189 mg/dL, Very highSecondary prevention optimal LDL Cholesterol levels are recommended to be < 70 mg/dL Performed By: #### L JEREMIAH, 46679-2 ####[facility] LABCLIA [id number] [address] [place] [facility] LDL/HDL RATIO, NF 0.64 mg/dL Normal <2.54 [facility] Comment on above: Order Comment: Salvatorei men Type: BLOOD SPECIMENOrdering Facility: [facility] Address: [address] [place] [address] Result Comment: Refe rence:1. National Cholesterol Education Program ATP III Guideline At-A-Glance Quick Desk Reference: National Heart, Lung, and Blood Orange. National Institutes of Health. 2001: NIH Publication No. 01-3305.2. An International Atherosclerosis Society position paper: global recommendations for the management of dyslipidemia: executive summary, Atherosclerosis. 2014: 232(2):410-413. Performed By: #### L JEREMIAH, 73637-4 ####[facility] LABIA [id number] [place] [address] [place] NON HDL CHOL, NF 58 mg/dL Normal <130 [facility] Comment on above: Order Comment: Manpreet macias Type: BLOOD SPECIMENOrdering Facility: [facility] Address: [address] [place] [address] Result Comment: <130 mg/dL, Optimal 130-159 mg/dL, Near optimal/above optimal 160-189 mg/dL, Borderline high 190-219 mg/dL, High>219 mg/dL, Very highSecondary prevention optimal non HDL Cholesterol levels are recommended to be <100 mg/dL Performed By: #### L JEREMIAH, 15112-9 ####[facility] LABCLIA [id number] [place] [address] [place] T CHOL/HDL RATIO NF 1.76 mg/dL Normal <5.10 [facility] Comment on above: Order Comment: Speci men Type: BLOOD SPECIMENOrdering Facility: [facility] Address: [address] [place] [address] Performed By: #### L JEREMIAH, 07474-5 ####[facility] LABCLIA [id number] [place] [address] [place] TRIGLYCERIDES, NF 45 mg/dL Normal <150 [facility] Comment on above: Order Comment: Speci men Type: BLOOD SPECIMENOrdering Facility: [facility] Address: [address] [place] [address] Result Comment: <150 mg/dL, Normal 150-199 mg/dL, Borderline high 200-499 mg/dL, High>499 mg/dL, Very high Performed By: #### L JEREMIAH, 17912-7 ####[facility] LABCLIA [id number] [place] [address] [place] VLDL CHOLESTEROL, NF 9 mg/dL Normal <30 [facility] Comment on above: Order Comment: Speci men Type: BLOOD SPECIMENOrdering Facility: [facility] Address: [address] [place] [address] Performed By: #### L JEREMIAH, 32513-4 ####[facility] LABCLIA [id number] [place] [address] [place] CNOVon 05-04-2024 CNOV Normal [facility] UA DIP, URINE (POC)on 2023 BILIRUBIN UA (POCT) Negative Negative [facility] CLARITY UA (POCT) Clear [facility] COLOR UA (POCT) Yellow [facility] GLUCOSE UA (POCT) Negative Negative mg/dL [facility] Hemoglobin Ql (U) Trace-intact Abnormal Negative [facility] Interpretation and review of laboratory results Abnormal [facility] KETONE UA (POCT) Negative Negative mg/dL [facility] LEUKOCYTES UA (POCT) Small Abnormal Negative [facility] NITRITE UA (POCT) Negative Negative [facility] PH UA (POCT) 5.5 4.5 - 8.0 [facility] Protein Ql (U) Negative Negative mg/dL [facility] SPECIFIC GRAVITY UA (POCT) 1.015 1.005 - 1.030 [facility] UROBILINOGEN UA (POCT) 0.2 Betsy l E.U./dL [facility], [address] [place], [place], [id number] [place] [address] POINT OF CARE [facility] XR Thoracic and lumbar spine Views for scoliosis W standingon 03-13-2024 IMPRESSION: EXPECTED POSTOPERATIVE APPEARANCE PROGRESSION OF EXAGGERATED KYPHOSIS WITHOUT A DISCRETE FRACTURE SEEN 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: Loom DecorCasey Transcribe Date/Time: Mar 13 2024 2:41P Dictated by : THAIS MAYBERRY MD This examination was interpreted and the report reviewed and electronically signed by: THAIS MAYBERRY MD on Mar 13 2024 2:43PM [facility] * * *Final Report* * * DATE OF EXAM: Mar 13 2024 1:46PM [id number] - XR SCOLIOSIS 2V PA STAND/LAT / PROCEDURE REASON: Scoliosis of lumbar spine, unspecified scoliosis type * * * * Physician Interpretation * * * * HISTORY (as given from clinical provider): Scoliosis of lumbar spine, unspecified scoliosis type . Additional history provided by the performing technologist (if any): chronic back pain TECHNIQUE: XR SCOLIOSIS 2V PA STAND/LAT COMPARISON: 03/09/2023 RESULT: No significant change. Posterior decompression and posterior fusion L3-S1 using bilateral rods and pedicle screws as well as anterior intervertebral fusion L3-4, L4-5 and L5-S1 with intervertebral cages. Expected postsurgical appearance and unchanged. Moderate dextroscoliosis centered in the upper lumbar spine as well as exaggerated kyphosis centered in the lower thoracic spine. The thoracic kyphosis is increased compared to the prior study and measures approximately 67 degrees. Previously this measures about 53 degrees. Incidental note of multilevel degenerative disc disease in the cervical spine. No other significant abnormality. [facility] Provider, [facility] - 03/13/2024 * * *Final Report* * * DATE OF EXAM: Mar 13 2024 1:46PM [id number] - XR SCOLIOSIS 2V PA STAND/LAT / PROCEDURE REASON: Scoliosis of lumbar spine, unspecified scoliosis type * * * * Physician Interpretation * * * * HISTORY (as given from clinical provider): Scoliosis of lumbar spine, unspecified scoliosis type . Additional history provided by the performing technologist (if any): chronic back pain TECHNIQUE: XR SCOLIOSIS 2V PA STAND/LAT COMPARISON: 03/09/2023 RESULT: No significant change. Posterior decompression and posterior fusion L3-S1 using bilateral rods and pedicle screws as well as anterior intervertebral fusion L3-4, L4-5 and L5-S1 with intervertebral cages. Expected postsurgical appearance and unchanged. Moderate dextroscoliosis centered in the upper lumbar spine as well as exaggerated kyphosis centered in the lower thoracic spine. The thoracic kyphosis is increased compared to the prior study and measures approximately 67 degrees. Previously this measures about 53 degrees. Incidental note of multilevel degenerative disc disease in the cervical spine. No other significant abnormality. IMPRESSION IMPRESSION: EXPECTED POSTOPERATIVE APPEARANCE PROGRESSION OF EXAGGERATED KYPHOSIS WITHOUT A DISCRETE FRACTURE SEEN 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: BRIAN Transcribe Date/Time: Mar 13 2024 2:41P Dictated by : THAIS MAYBERRY MD This examination was interpreted and the report reviewed and electronically signed by: THAIS MAYBERRY MD on Mar 13 2024 2:43PM EST [facility] Radiology Study observation (narrative) [facility] XR Thoracic and lumbar spine Views for scoliosis W standingOrdered By: [facility] Provider on 03-13-2024 [facility] UA DIP, URINE (POC)on 2023 BILIRUBIN UA (POCT) Negative Negative [facility] CLARITY UA (POCT) Slightly Cloudy Cl [facility] COLOR UA (POCT) Yellow [facility] GLUCOSE UA (POCT) Negative Negative mg/dL [facility] Hemoglobin Ql (U) Trace-lysed Abnormal Negative [facility] KETONE UA (POCT) Negative Negative mg/dL [facility] LEUKOCYTES UA (POCT) Small Abnormal Negative [facility] NITRITE UA (POCT) Positive Abnormal Negative [facility] PH UA (POCT) 5.5 4.5 - 8.0 [facility] Protein Ql (U) Negative Negative mg/dL [facility] SPECIFIC GRAVITY UA (POCT) 1.015 1.005 - 1.030 [facility] UROBILINOGEN UA (POCT) 0.2 E.U./dL Betsy l E.U./dL [facility] MR Brain [facility] H[facility] BILATERAL 5V PEL/AP/L AT EACH HIPon 11-22-2023 [facility] UA DIP, URINE (POC)on 2023 BILIRUBIN UA (POCT) Negative Negative [facility] CLARITY UA (POCT) Clear [facility] COLOR UA (POCT) Yellow [facility] GLUCOSE UA (POCT) Negative Negative mg/dL [facility] Hemoglobin Ql (U) Negative Negative [facility] KETONE UA (POCT) Negative Negative mg/dL [facility] LEUKOCYTES UA (POCT) Small Abnormal Negative [facility] [facility] NITRITE UA (POCT) Negative Negative [facility] PH UA (POCT) 6.0 4.5 - 8.0 [facility] Protein Ql (U) Negative Negative mg/dL [facility] SPECIFIC GRAVITY UA (POCT) 1.020 1.005 - 1.030 [facility] UROBILINOGEN UA (POCT) 0.2 E.U./dL [place] E.U./dL [facility] COLONOSCOPY DIAGNOSTICon [facility] Absolute lymphocyte countOrd ered By: Elyssafouzia Enrique on 09-28-2023 Lymphocytes Auto (Unsp spec) [#/Vol] 1.01 10*3/uL 0.83-4.51 [facility] Basophil percentageOrdered B y: Elyssa Iva on 09-28-2023 Basophils/100 WBC (Bld) 0.4 % 0-1 [facility] Chloride [Moles/Vol] 110 mmol/L 98-107 [facility] Eosinophils/100 WBC (Bld) 2.1 % 0-5 [facility] Glucose [Mass/Vol] 91 mg/dL 74-106 [facility] Neutrophils (Bld) [#/Vol] 3.2 10*3/uL 2.0-7.7 [facility] Neutrophils/100 WBC (Bld) 66.0 % 47-70 [facility] Potassium [Moles/Vol] 3.7 mmol/L 3.5-5.1 [facility] Sodium [Moles/Vol] 139 mmol/L 136-145 [facility] WBC (Bld) [#/Vol] 4.9 10*3/uL 4.4-11.0 [facility] Blood erythrocytes count (nu mber/volume)Ordered By: Elyssa Enrique on 09-28-2023 RBC (Bld) [#/Vol] 3.40 10*6/uL 4.6-6.2 [facility] Blood hemoglobin measurement (mass/volume)Ordered By: Elyssa Enrique on 09-28-2023 Hemoglobin (Bld) [Mass/Vol] 10.3 g/dL 13.0-16.5 [facility] Blood lymphocytes/100 leukoc ytesOrdered By: Elyssa Enrique on 09-28-2023 Lymphocytes/100 WBC (Bld) 20.8 % 19-41 [facility] Blood monocytes/100 leukocyt esOrdered By: Elyssa Enrique on 09-28-2023 Monocytes/100 WBC (Bld) 10.5 % 0-10 [facility] Blood platelet mean volumeOr dered By: Elyssa Enrique on 09-28-2023 Platelet mean volume (Bld) [Entitic vol] 9.5 fL 6.2-12.0 [facility] Determination of erythrocyte mean corpuscular volume (MCV)Ordered By: Elyssa Enrique on 09-28-2023 MCV (RBC) [Entitic vol] 97.4 fL 80-94 [facility] Hematocrit Auto (Bld) [Volum e fraction]Ordered By: Elyssa Enrique on 09-28-2023 Hematocrit (Bld) [Volume fraction] 33.1 % 40-54 [facility] Laboratory - Chemistry and C hemistry - challengeOrdered By: Elyssa Enrique on 09-28-2023 CO2 [Moles/Vol] 26.0 mmol/L 21.0-32.0 [facility] Urea nitrogen/Creatinine [Mass ratio] 18.7 mg/mg 10-20 [facility] Laboratory - Hematology and Cell countsOrdered By: Elyssa Enrique on 09-28-2023 Erythrocyte distribution width (RBC) [Entitic vol] 46.9 fL 35.1-43.9 [facility] Erythrocyte distribution width (RBC) [Ratio] 13.1 % 11.6-14.6 [facility] Immature granulocytes/100 WBC (Bld) 0.200 % 0.0-0.9 [facility] Comment on above: IG% - Immature Granu locytes (promyelocytes, myelocytes and metamyelocytes) > 1% indicates that a LEFT SHIFT is Present. MCH (RBC) [Entitic mass] 30.3 pg 27.0-32.0 [facility] Nucleated RBC/100 WBC (Bld) [Ratio] 0 % 0-5 [facility] MCHC Auto (RBC) [Mass/Vol]Or dered By: Elyssa Enrique on 09-28-2023 MCHC (RBC) [Mass/Vol] 31.1 g/dL 32-36 [facility] No Panel InformationOrdered By: Elyssa Enrique on 09-28-2023 Estimated Creatinine Clearance Calc 72.19 ml/min [facility] Estimated GFR (MDRD) Amer 111 mL/min >60 [facility] Comment on above: GFR Calc Estimated GFR (MDRD) Non-Af Amer 91 mL/min >60 [facility] Comment on above: Non- GFR Calc Platelets bldOrdered By: Lynn Enrique on 09-28-2023 Platelets (Bld) [#/Vol] 134 10*3/uL 150-450 [facility] Serum or plasma calcium shon urement (mass/volume)Ordered By: Elyssa Enrique on 09-28-2023 Calcium [Mass/Vol] 8.3 mg/dL 8.5-10.1 [facility] Serum or plasma creatinine m easurement (mass/volume)Ordered By: Elyssa Enrique on 09-28-2023 Creatinine [Mass/Vol] 0.86 mg/dL 0.70-1.30 [facility] Comment on above: The validity of the calculated GFR & GFRAA in patients over 70 years has not been determined. Clinical correlation is essential. Serum or plasma urea nitroge n measurement (mass/volume)Ordered By: Elyssa Enrique on 09-28-2023 Urea nitrogen [Mass/Vol] 16 mg/dL 7-18 [facility] Thin prep Papanicolaou smear with manual screeningOrdered By: Elyssa Enrique on 09-28-2023 Thin prep Papanicolaou smear with manual screening 3 5-15 [facility] Blood manual differential co mment interpretation (narrative result)Ordered By: Elyssa Enrique on 09-27-2023 Manual differential comment Wale (Bld) [Interp] COMMENT [facility] Comment on above: LYMPHOPENIA. Respiratory pathogens detect ion panel by molecular detection methodOrdered By: Cesar Orona on 09-25-2023 Respiratory pathogens DNA and RNA panel JACOB+probe (Resp) [facility] Absolute lymphocyte countOrd ered By: Valeria Odom on 09-24-2023 Lymphocytes Auto (Unsp spec) [#/Vol] 0.25 10*3/uL 0.83-4.51 [facility] Basophil percentageOrdered B y: Aly Li on 09-24-2023 Lactate [Moles/Vol] 1.6 mmol/L 0.4-2.0 [facility] Basophil percentageOrdered B y: Valeria Odom on 09-24-2023 Basophil percentage 25-50 SEEN /hpf 0-5 [facility] Basophils/100 WBC (Bld) 0.4 % 0-1 [facility] Chloride [Moles/Vol] 101 mmol/L 98-107 [facility] Eosinophils/100 WBC (Bld) 0.2 % 0-5 [facility] Glucose [Mass/Vol] 110 mg/dL 74-106 [facility] Comment on above: Fasting Glucose resu lt from 100 to 125 mg/dL suggests IMPAIRED HOMEOSTASIS per A.D.A. criteria. Neutrophils (Bld) [#/Vol] 8.1 10*3/uL 2.0-7.7 [facility] Neutrophils/100 WBC (Bld) 95.5 % 47-70 [facility] Potassium [Moles/Vol] 4.3 mmol/L 3.5-5.1 [facility] Sodium [Moles/Vol] 136 mmol/L 136-145 [facility] WBC (Bld) [#/Vol] 8.5 10*3/uL 4.4-11.0 [facility] Bilirubin Test strip Ql (U)O rdered By: Valeria Odom on 09-24-2023 Bilirubin Ql (U) Negative Negative [facility] Blood erythrocytes count (nu mber/volume)Ordered By: Valeria Odom on 09-24-2023 RBC (Bld) [#/Vol] 3.92 10*6/uL 4.6-6.2 [facility] Blood hemoglobin measurement (mass/volume)Ordered By: Valeria Odom on 09-24-2023 Hemoglobin (Bld) [Mass/Vol] 12.1 g/dL 13.0-16.5 [facility] Blood lymphocytes/100 leukoc ytesOrdered By: Valeria Odom on 09-24-2023 Lymphocytes/100 WBC (Bld) 2.9 % 19-41 [facility] Blood manual differential co mment interpretation (narrative result)Ordered By: Valeria Odom on 09-24-2023 Manual differential comment Wale (Bld) [Interp] SCANNED [facility] Comment on above: LYMPHOPENIA NOTED Blood monocytes/100 leukocyt esOrdered By: Valeria Odom on 09-24-2023 Monocytes/100 WBC (Bld) 0.6 % 0-10 [facility] Blood platelet mean volumeOr dered By: Valeria Odom on 09-24-2023 Platelet mean volume (Bld) [Entitic vol] 9.0 fL 6.2-12.0 [facility] Determination of erythrocyte mean corpuscular volume (MCV)Ordered By: Valeria Odom on 09-24-2023 MCV (RBC) [Entitic vol] 98.2 fL 80-94 [facility] Hematocrit Auto (Bld) [Volum e fraction]Ordered By: Valeria Odom on 09-24-2023 Hematocrit (Bld) [Volume fraction] 38.5 % 40-54 [facility] Influenza virus A and B and SARS-CoV-2 (COVID-19) Ag panel - Upper respiratory specimOrdered By: Valeria Odom on 09-24-2023 SARS-CoV-2 (COVID-19) RNA JACOB+probe Ql (Resp) [facility] Ketones Test strip Ql (U)Ord ered By: Valeria Odom on 09-24-2023 Ketones Ql (U) 50 mg/dl Negative [facility] Laboratory - Chemistry and C hemistry - challengeOrdered By: Valeria Odom on 09-24-2023 CO2 [Moles/Vol] 30.0 mmol/L 21.0-32.0 [facility] Urea nitrogen/Creatinine [Mass ratio] 22.2 mg/mg 10-20 [facility] Laboratory - Hematology and Cell countsOrdered By: Valeria Odom on 09-24-2023 Erythrocyte distribution width (RBC) [Entitic vol] 46.5 fL 35.1-43.9 [facility] Erythrocyte distribution width (RBC) [Ratio] 13.1 % 11.6-14.6 [facility] Immature granulocytes/100 WBC (Bld) 0.400 % 0.0-0.9 [facility] Comment on above: IG% - Immature Granu locytes (promyelocytes, myelocytes and metamyelocytes) > 1% indicates that a LEFT SHIFT is Present. MCH (RBC) [Entitic mass] 30.9 pg 27.0-32.0 [facility] Nucleated RBC/100 WBC (Bld) [Ratio] 0 % 0-5 [facility] Laboratory - Microbiology an d Antimicrobial susceptibilityOrdered By: Aly Li on 09-24-2023 Bacteria identified Cx Nom (Bld) Escherichia coli [facility] MCHC Auto (RBC) [Mass/Vol]Or dered By: Valeria Odom on 09-24-2023 MCHC (RBC) [Mass/Vol] 31.4 g/dL 32-36 [facility] Mucus LM Ql (Urine sed)Order ed By: Valeria Odom on 09-24-2023 Mucus Ql (Urine sed) 0 SEEN /hpf [facility] Nitrite Test strip Ql (U)Ord ered By: Valeria Odom on 09-24-2023 Nitrite Ql (U) Negative Negative [facility] No Panel InformationOrdered By: Valeria Odom on 09-24-2023 Urine Transitional Epithelial Cells 0-5 SEEN /hpf 0-5 [facility] Estimated Creatinine Clearance Calc 56.33 ml/min [facility] Estimated GFR (MDRD) Amer 84 mL/min >60 [facility] Comment on above: GFR Calc Estimated GFR (MDRD) Non-Af Amer 70 mL/min >60 [facility] Comment on above: Non- GFR Calc Troponin I High Sensitivity 6 pg/mL 3.0-78.0 [facility] Comment on above: Please Note: [place] t Units and Gender Specific Reference Ranges. For more information see Policy Stat Procedure [place] High Sensitivity Troponin (TNIH) and attachments. Platelets bldOrdered By: Joslyn Odom on 09-24-2023 Platelets (Bld) [#/Vol] 171 10*3/uL 150-450 [facility] Protein Test strip Ql (U)Ord ered By: Valeria Odom on 09-24-2023 Protein Ql (U) 30 mg/dl Negative [facility] Serum or plasma calcium shon urement (mass/volume)Ordered By: Valeria Odom on 09-24-2023 Calcium [Mass/Vol] 9.3 mg/dL 8.5-10.1 [facility] Serum or plasma creatinine m easurement (mass/volume)Ordered By: Valeria Odom on 09-24-2023 Creatinine [Mass/Vol] 1.08 mg/dL 0.70-1.30 [facility] Comment on above: The validity of the calculated GFR & GFRAA in patients over 70 years has not been determined. Clinical correlation is essential. Serum or plasma urea nitroge n measurement (mass/volume)Ordered By: Valeria Odom on 09-24-2023 Urea nitrogen [Mass/Vol] 24 mg/dL 7-18 [facility] Squamous epithelial cells de tection in urine sediment by light microscopyOrdered By: Valeria Odom on 09-24-2023 Epithelial cells.squamous LM Ql (Urine sed) 0-5 SEEN /hpf 0-5 [facility] Thin prep Papanicolaou smear with manual screeningOrdered By: Valeria Odom on 09-24-2023 Thin prep Papanicolaou smear with manual screening 5 5-15 [facility] Urine blood detectionOrdered By: Valeria Odom on 09-24-2023 RBC Ql (U) 250 /ul Negative [facility] RBC Ql (U) 25-50 SEEN /hpf 0-5 [facility] Urine clarityOrdered By: Joslyn Odom on 09-24-2023 Clarity (U) Sl Cloudy Clear [facility] Urine color determinationOrd ered By: Valeria Odom on 09-24-2023 Color (U) Yellow Yellow [facility] Urine glucose detectionOrder ed By: Valeria Odom on 09-24-2023 Glucose Ql (U) Normal mg/dl Normal [facility] Urine leukocyte esterase det ection by dipstickOrdered By: Valeria Odom on 09-24-2023 Leukocyte esterase Test strip Ql (U) 500 /ul Negative [facility] Urine pHOrdered By: Valeria rolon on 09-24-2023 pH (U) 6.0 [pH] 5.0 - 8.0 [facility] Urine sediment bacteria coun t by microscopy (number/high power field)Ordered By: Valeria Odom on 09-24-2023 Bacteria LM.HPF (Urine sed) [#/Area] 0 /[HPF] None Seen [facility] Urine specific gravity measu rementOrdered By: Valeria Odom on 09-24-2023 Specific gravity (U) [Rel density] 1.015 1.002-1.030 [facility] Urobilinogen Auto test strip Ql (U)Ordered By: Valeria Odom on 09-24-2023 Urobilinogen Ql (U) Normal mg/dl Normal [facility] Absolute lymphocyte countOrd ered By: Geovani Dave on 09-10-2023 Lymphocytes Auto (Unsp spec) [#/Vol] 1.70 10*3/uL 0.83-4.51 [facility] Basophil percentageOrdered B y: Geovani Dave on 09-10-2023 Basophil percentage 25-50 SEEN /hpf 0-5 [facility] Basophils/100 WBC (Bld) 0.6 % 0-1 [facility] Bilirubin [Mass/Vol] 0.50 mg/dL 0.20-1.00 [facility] Comment on above: For patients on eltr ombopag therapy, use of Dimension [place] TBIL is not recommended. Chloride [Moles/Vol] 106 mmol/L 98-107 [facility] Eosinophils/100 WBC (Bld) 1.5 % 0-5 [facility] Glucose [Mass/Vol] 108 mg/dL 74-106 [facility] Comment on above: Fasting Glucose resu lt from 100 to 125 mg/dL suggests IMPAIRED HOMEOSTASIS per A.D.A. criteria. Neutrophils (Bld) [#/Vol] 2.5 10*3/uL 2.0-7.7 [facility] Neutrophils/100 WBC (Bld) 53.4 % 47-70 [facility] Potassium [Moles/Vol] 4.2 mmol/L 3.5-5.1 [facility] Protein [Mass/Vol] 6.8 g/dL 6.4-8.2 [facility] Sodium [Moles/Vol] 139 mmol/L 136-145 [facility] WBC (Bld) [#/Vol] 4.7 10*3/uL 4.4-11.0 [facility] Bilirubin Test strip Ql (U)O rdered By: Geovani Dave on 09-10-2023 Bilirubin Ql (U) Negative Negative [facility] Blood erythrocytes count (nu mber/volume)Ordered By: Geovani Dave on 09-10-2023 RBC (Bld) [#/Vol] 3.97 10*6/uL 4.6-6.2 [facility] Blood hemoglobin measurement (mass/volume)Ordered By: Geovani Dave on 09-10-2023 Hemoglobin (Bld) [Mass/Vol] 12.5 g/dL 13.0-16.5 [facility] Blood lymphocytes/100 leukoc ytesOrdered By: Geovain Dave on 09-10-2023 Lymphocytes/100 WBC (Bld) 36.0 % 19-41 [facility] Blood monocytes/100 leukocyt esOrdered By: Geovani Dave on 09-10-2023 Monocytes/100 WBC (Bld) 8.5 % 0-10 [facility] Blood platelet mean volumeOr dered By: Geovani Dave on 09-10-2023 Platelet mean volume (Bld) [Entitic vol] 9.2 fL 6.2-12.0 [facility] Culture, urineOrdered By: Do layo Dave on 09-10-2023 Bacteria identified Cx Nom (U) Escherichia coli [facility] Determination of erythrocyte mean corpuscular volume (MCV)Ordered By: Geovani Dave on 09-10-2023 MCV (RBC) [Entitic vol] 96.2 fL 80-94 [facility] Hematocrit Auto (Bld) [Volum e fraction]Ordered By: Geovani Dave on 09-10-2023 Hematocrit (Bld) [Volume fraction] 38.2 % 40-54 [facility] Ketones Test strip Ql (U)Ord ered By: Geovani Dave on 09-10-2023 Ketones Ql (U) 5 mg/dl Negative [facility] Laboratory - Chemistry and C hemistry - challengeOrdered By: Geovani Dave on 09-10-2023 ALP [Catalytic activity/Vol] 59 U/L 45-117 [facility] ALT [Catalytic activity/Vol] 20 U/L 16-61 [facility] CO2 [Moles/Vol] 30.0 mmol/L 21.0-32.0 [facility] Globulin (S) [Mass/Vol] 2.9 g/dL 2.2-4.2 [facility] Lipase [Catalytic activity/Vol] 17 U/L 13-75 [facility] Comment on above: Please note:LIPASE r evised reference range effective 23. New Lipase methodology. Expected to produce lower values than the previous assay method. NEW Reference Range: 13 - 75 U/L Urea nitrogen/Creatinine [Mass ratio] 28.6 mg/mg 10-20 [facility] Laboratory - Hematology and Cell countsOrdered By: Geovani Dave on 09-10-2023 Erythrocyte distribution width (RBC) [Entitic vol] 46.5 fL 35.1-43.9 [facility] Erythrocyte distribution width (RBC) [Ratio] 13.0 % 11.6-14.6 [facility] Immature granulocytes/100 WBC (Bld) 0.000 % 0.0-0.9 [facility] Comment on above: IG% - Immature Granu locytes (promyelocytes, myelocytes and metamyelocytes) > 1% indicates that a LEFT SHIFT is Present. MCH (RBC) [Entitic mass] 31.5 pg 27.0-32.0 [facility] Nucleated RBC/100 WBC (Bld) [Ratio] 0 % 0-5 [facility] MCHC Auto (RBC) [Mass/Vol]Or dered By: Geovani Dave on 09-10-2023 MCHC (RBC) [Mass/Vol] 32.7 g/dL 32-36 [facility] Mucus LM Ql (Urine sed)Order ed By: Geovani Dave on 09-10-2023 Mucus Ql (Urine sed) 0 SEEN /hpf [facility] Nitrite Test strip Ql (U)Ord ered By: Geovani Dave on 09-10-2023 Nitrite Ql (U) Positive Negative [facility] No Panel InformationOrdered By: Geovani Dave on 09-10-2023 Estimated GFR (MDRD) Amer 87 mL/min >60 [facility] Comment on above: GFR Calc Estimated GFR (MDRD) Non-Af Amer 72 mL/min >60 [facility] Comment on above: Non- GFR Calc Platelets bldOrdered By: Yohan Dave on 09-10-2023 Platelets (Bld) [#/Vol] 151 10*3/uL 150-450 [facility] Protein Test strip Ql (U)Ord ered By: Geovani Dave on 09-10-2023 Protein Ql (U) 15 mg/dl Negative [facility] Serum or plasma albumin hson urement (mass/volume)Ordered By: Geovani Dave on 09-10-2023 Albumin [Mass/Vol] 3.9 g/dL 3.2-5.0 [facility] Serum or plasma albumin/glob ulin mass ratioOrdered By: Geovani Dave on 09-10-2023 Albumin/Globulin [Mass ratio] 1.3 {ratio} 0.9-2.4 [facility] Serum or plasma calcium shon urement (mass/volume)Ordered By: Geovani Dave on 09-10-2023 Calcium [Mass/Vol] 9.4 mg/dL 8.5-10.1 [facility] Serum or plasma creatinine m easurement (mass/volume)Ordered By: Geovani Dave on 09-10-2023 Creatinine [Mass/Vol] 1.05 mg/dL 0.70-1.30 [facility] Comment on above: The validity of the calculated GFR & GFRAA in patients over 70 years has not been determined. Clinical correlation is essential. Serum or plasma urea nitroge n measurement (mass/volume)Ordered By: Geovani Dave on 09-10-2023 Urea nitrogen [Mass/Vol] 30 mg/dL 7-18 [facility] Squamous epithelial cells de tection in urine sediment by light microscopyOrdered By: Geovani Dave on 09-10-2023 Epithelial cells.squamous LM Ql (Urine sed) 0-5 SEEN /hpf 0-5 [facility] Thin prep Papanicolaou smear with manual screeningOrdered By: Geovani Dave on 09-10-2023 Thin prep Papanicolaou smear with manual screening 10 U/L 15-37 [facility] Thin prep Papanicolaou smear with manual screening 3 5-15 [facility] Urine blood detectionOrdered By: Geovani Dave on 09-10-2023 RBC Ql (U) 10 /ul Negative [facility] RBC Ql (U) 0-5 SEEN /hpf 0-5 [facility] Urine clarityOrdered By: Yohan Dave on 09-10-2023 Clarity (U) Sl. Cloudy Clear [facility] Urine color determinationOrd ered By: Geovani Dave on 09-10-2023 Color (U) Yellow Yellow [facility] Urine glucose detectionOrder ed By: Geovani Dave on 09-10-2023 Glucose Ql (U) Normal mg/dl Normal [facility] Urine leukocyte esterase det ection by dipstickOrdered By: Geovani Dave on 09-10-2023 Leukocyte esterase Test strip Ql (U) 500 /ul Negative [facility] Urine pHOrdered By: Geovani fontaine on 09-10-2023 pH (U) 6.0 [pH] 5.0 - 8.0 [facility] Urine sediment bacteria coun t by microscopy (number/high power field)Ordered By: Geovani Dave on 09-10-2023 Bacteria LM.HPF (Urine sed) [#/Area] 2 /[HPF] None Seen [facility] Urine specific gravity measu rementOrdered By: Geovani Dave on 09-10-2023 Specific gravity (U) [Rel density] 1.020 1.002-1.030 [facility] Urobilinogen Auto test strip Ql (U)Ordered By: Geovani Dave on 09-10-2023 Urobilinogen Ql (U) Normal mg/dl Normal [facility] No Panel Informationon 08-30 [facility] XR CERV OTHER 6V AP/LAT/FLX/ EXT/OBLon 06-09-2023 [facility] CBC W Auto Differential pane l (Bld)on 04-05-2023 Basophils (Bld) [#/Vol] 0.03 10*3/uL <0.11 k/uL [facility] Basophils/100 WBC (Bld) 0.6 % [facility] Differential cell count method Nom (Bld) Auto [facility] Eosinophils (Bld) [#/Vol] 0.10 10*3/uL <0.46 k/uL [facility] Eosinophils/100 WBC (Bld) 2.1 % [facility] Erythrocyte distribution width (RBC) [Ratio] 12.6 % 11.5 - 15.0 % [facility] Hematocrit (Bld) [Volume fraction] 39.1 % 39.0 - 51.0 % [facility] Hemoglobin (Bld) [Mass/Vol] 12.7 g/dL Low 13.0 - 17.0 g/dL [facility] Immature granulocytes (Bld) [#/Vol] <0.10 k/uL [facility] Immature granulocytes/100 WBC (Bld) 0.2 % [facility] Lymphocytes (Bld) [#/Vol] 2.06 10*3/uL 1.00 - 4.00 k/uL [facility] Lymphocytes/100 WBC (Bld) 44.0 % [facility] MCH (RBC) [Entitic mass] 30.9 pg 26. 0 - 34.0 pg [facility] MCHC (RBC) [Mass/Vol] 32.5 g/dL 30.5 - 36.0 g/dL [facility] MCV (RBC) [Entitic vol] 95.1 fL 80.0 - 100.0 fL [facility] Monocytes (Bld) [#/Vol] 0.40 10*3/uL <0.87 k/uL [facility] Monocytes/100 WBC (Bld) 8.5 % [facility] Neutrophils (Bld) [#/Vol] 2.08 10*3/uL 1.45 - 7.50 k/uL [facility] Neutrophils/100 WBC (Bld) 44.6 % [facility] Nucleated RBC (Bld) [#/Vol] <0.01 k/uL [facility] Nucleated RBC/100 WBC (Bld) [Ratio] 0.0 /100 WBC [facility] Platelet mean volume (Bld) [Entitic vol] 9.8 fL 9.0 - 12.7 fL [facility] Platelets (Bld) [#/Vol] 182 10*3/uL 150 - 400 k/uL [facility] RBC (Bld) [#/Vol] 4.11 10*6/uL Low 4.20 - 6.0 0 m/uL [facility] WBC (Bld) [#/Vol] 4.68 10*3/uL 3.70 - 11. 00 k/uL [facility] XR SCOLIOSIS PA STAND/LAT 2V on 03-09-2023 [facility] UA DIP, URINE (POC)on 2022 BILIRUBIN UA (POCT) Negative Negative [facility] CLARITY UA (POCT) Clear [facility] COLOR UA (POCT) [place] [facility] GLUCOSE UA (POCT) Negative Negative mg/dL [facility] HEMOGLOBIN/BLOOD UA (POCT) Large Abnormal Negative [facility] KETONE UA (POCT) Negative Negative mg/dL [facility] LEUKOCYTES UA (POCT) Small Abnormal Negative [facility] NITRITE UA (POCT) Negative Negative [facility] PH UA (POCT) 6.0 4.5 - 8.0 [facility] Protein Ql (U) Trace Abnormal Negative mg/dL [facility] SPECIFIC GRAVITY UA (POCT) 1.010 1.005 - 1.030 [facility] UROBILINOGEN UA (POCT) 0.2 E.U./dL [place] E.U./dL [facility] Absolute lymphocyte countOrd ered By: Valeria Odom on 01-02-2023 Lymphocytes Auto (Unsp spec) [#/Vol] 1.90 10*3/uL 0.83-4.51 [facility] Amorphous sediment detection in urine sediment by light microscopyOrdered By: Valeria Odom on 01-02-2023 Amorphous sediment LM Ql (Urine sed) 1+ URATE [facility] Basophil percentageOrdered B y: Valeria Odom on 01-02-2023 Basophil percentage 25-50 SEEN /hpf 0-5 [facility] Basophils/100 WBC (Bld) 0.7 % 0-1 [facility] Chloride [Moles/Vol] 104 mmol/L 98-107 [facility] Eosinophils/100 WBC (Bld) 2.3 % 0-5 [facility] Glucose [Mass/Vol] 93 mg/dL 74-106 [facility] Neutrophils (Bld) [#/Vol] 1.9 10*3/uL 2.0-7.7 [facility] Neutrophils/100 WBC (Bld) 42.7 % 47-70 [facility] Potassium [Moles/Vol] 3.9 mmol/L 3.5-5.1 [facility] Sodium [Moles/Vol] 139 mmol/L 136-145 [facility] WBC (Bld) [#/Vol] 4.4 10*3/uL 4.4-11.0 [facility] Bilirubin Test strip Ql (U)O rdered By: Valeria Odom on 01-02-2023 Bilirubin Ql (U) Negative Negative [facility] Blood erythrocytes count (nu mber/volume)Ordered By: Valeria Odom on 01-02-2023 RBC (Bld) [#/Vol] 3.69 10*6/uL 4.6-6.2 [facility] Blood hemoglobin measurement (mass/volume)Ordered By: Valeria Odom on 01-02-2023 Hemoglobin (Bld) [Mass/Vol] 11.3 g/dL 13.0-16.5 [facility] Blood lymphocytes/100 leukoc ytesOrdered By: Valeria Odom on 01-02-2023 Lymphocytes/100 WBC (Bld) 43.0 % 19-41 [facility] Blood monocytes/100 leukocyt esOrdered By: Valeria Odom on 01-02-2023 Monocytes/100 WBC (Bld) 11.1 % 0-10 [facility] Blood platelet mean volumeOr dered By: Valeria Odom on 01-02-2023 Platelet mean volume (Bld) [Entitic vol] 9.5 fL 6.2-12.0 [facility] Determination of erythrocyte mean corpuscular volume (MCV)Ordered By: Valeria Odom on 01-02-2023 MCV (RBC) [Entitic vol] 95.7 fL 80-94 [facility] Hematocrit Auto (Bld) [Volum e fraction]Ordered By: Valeria Odom on 01-02-2023 Hematocrit (Bld) [Volume fraction] 35.3 % 40-54 [facility] Ketones Test strip Ql (U)Ord ered By: Valeria Odom on 01-02-2023 Ketones Ql (U) Negative Negative [facility] Laboratory - Chemistry and C hemistry - challengeOrdered By: Valeria Odom on 01-02-2023 CO2 [Moles/Vol] 30.0 mmol/L 21.0-32.0 [facility] Urea nitrogen/Creatinine [Mass ratio] 19.7 mg/mg 10-20 [facility] Laboratory - Hematology and Cell countsOrdered By: Valeria Odom on 01-02-2023 Erythrocyte distribution width (RBC) [Entitic vol] 46.0 fL 35.1-43.9 [facility] Erythrocyte distribution width (RBC) [Ratio] 13.2 % 11.6-14.6 [facility] Immature granulocytes/100 WBC (Bld) 0.200 % 0.0-0.9 [facility] Comment on above: IG% - Immature Granu locytes (promyelocytes, myelocytes and metamyelocytes) > 1% indicates that a LEFT SHIFT is Present. MCH (RBC) [Entitic mass] 30.6 pg 27.0-32.0 [facility] Nucleated RBC/100 WBC (Bld) [Ratio] 0 % 0-5 [facility] MCHC Auto (RBC) [Mass/Vol]Or dered By: Valeria Odom on 01-02-2023 MCHC (RBC) [Mass/Vol] 32.0 g/dL 32-36 [facility] Mucus LM Ql (Urine sed)Order ed By: Valeria Odom on 01-02-2023 Mucus Ql (Urine sed) 0 SEEN /hpf [facility] Nitrite Test strip Ql (U)Ord ered By: Valeria Odom on 01-02-2023 Nitrite Ql (U) Negative Negative [facility] No Panel InformationOrdered By: Valeria Odom on 01-02-2023 Estimated Creatinine Clearance Calc 66.85 ml/min [facility] Estimated GFR (MDRD) Amer 103 mL/min >60 [facility] Comment on above: GFR Calc Estimated GFR (MDRD) Non-Af Amer 85 mL/min >60 [facility] Comment on above: Non- GFR Calc Platelets bldOrdered By: Joslyn Odom on 01-02-2023 Platelets (Bld) [#/Vol] 154 10*3/uL 150-450 [facility] Protein Test strip Ql (U)Ord ered By: Valeria Odom on 01-02-2023 Protein Ql (U) Negative Negative [facility] Serum or plasma calcium shon urement (mass/volume)Ordered By: Valeria Odom on 01-02-2023 Calcium [Mass/Vol] 9.0 mg/dL 8.5-10.1 [facility] Serum or plasma creatinine m easurement (mass/volume)Ordered By: Valeria Odom on 01-02-2023 Creatinine [Mass/Vol] 0.91 mg/dL 0.70-1.30 [facility] Comment on above: The validity of the calculated GFR & GFRAA in patients over 70 years has not been determined. Clinical correlation is essential. Serum or plasma urea nitroge n measurement (mass/volume)Ordered By: Valeria Odom on 01-02-2023 Urea nitrogen [Mass/Vol] 18 mg/dL 7-18 [facility] Squamous epithelial cells de tection in urine sediment by light microscopyOrdered By: Valeria Odom on 01-02-2023 Epithelial cells.squamous LM Ql (Urine sed) 0-5 SEEN /hpf 0-5 [facility] Thin prep Papanicolaou smear with manual screeningOrdered By: Valeria Odom on 01-02-2023 Thin prep Papanicolaou smear with manual screening 5 5-15 [facility] Urine blood detectionOrdered By: Valeria Odom on 01-02-2023 RBC Ql (U) 10 /ul Negative [facility] RBC Ql (U) 0-5 SEEN /hpf 0-5 [facility] Urine clarityOrdered By: Joslyn Odom on 01-02-2023 Clarity (U) Sl. Cloudy Clear [facility] Urine color determinationOrd ered By: Valeria Odom on 01-02-2023 Color (U) Yellow Yellow [facility] Urine glucose detectionOrder ed By: Valeria Odom on 01-02-2023 Glucose Ql (U) Normal mg/dl Normal [facility] Urine leukocyte esterase det ection by dipstickOrdered By: Valeria Odom on 01-02-2023 Leukocyte esterase Test strip Ql (U) 500 /ul Negative [facility] Urine pHOrdered By: Valeria rolon on 01-02-2023 pH (U) 6.5 [pH] 5.0 - 8.0 [facility] Urine sediment bacteria coun t by microscopy (number/high power field)Ordered By: Valeria Odom on 01-02-2023 Bacteria LM.HPF (Urine sed) [#/Area] 1 /[HPF] None Seen [facility] Urine specific gravity measu rementOrdered By: Valeria Odom on 01-02-2023 Specific gravity (U) [Rel density] 1.010 1.002-1.030 [facility] Urobilinogen Auto test strip Ql (U)Ordered By: Valeria Odom on 01-02-2023 Urobilinogen Ql (U) Normal mg/dl Normal [facility] UA DIP, URINE (POC)on 2022 BILIRUBIN UA (POCT) Negative Negative [facility] CLARITY UA (POCT) Clear [facility] COLOR UA (POCT) Yellow [facility] GLUCOSE UA (POCT) Negative Negative mg/dL [facility] HEMOGLOBIN/BLOOD UA (POCT) Trace-intact Abnormal Negative [facility] KETONE UA (POCT) Negative Negative mg/dL [facility] LEUKOCYTES UA (POCT) Large Abnormal Negative [facility] NITRITE UA (POCT) Negative Negative [facility] PH UA (POCT) 6.0 4.5 - 8.0 [facility] Protein Ql (U) Negative Negative mg/dL [facility] SPECIFIC GRAVITY UA (POCT) 1.015 1.005 - 1.030 [facility] UROBILINOGEN UA (POCT) 0.2 E.U./dL [place] E.U./dL [facility] CNTHERAPYon 11-17-2022 CNTHERAPY OT/PT/Speech Visit (SPEMML) RONDAJAVIER Meza ([id number]) 1940 M NFR Date Time Provider Department 11/17/22 12:15 PM ESSENCE CASTAÑEDA Date Time Provider Department Center 11/17/2022 12:15 PM [id number] CASTAÑEDA [facility] Reason for Visit: Speech Therapy [3489] Speech Discharge [3488] Primary Visit Diagnosis:Dysphagia, unspecified type [R13.10] Allergies As of Date: 11/17/2022 Noted Allergy Reaction CONTRAST DYE 03/24/2009 4 - Hives FINACEA (AZELAIC ACID) 09/28/2017 2 - Rash BACTRIM (SULFAMETHOXAZOLE-TRIM ETH*06/02/2005 16 - Unknown BEXTRA (VALDECOXIB) 06/02/2005 16 - Unknown CARDURA (DOXAZOSIN MESYLATE) 06/02/2005 16 - Unknown CIPROFLOXACIN 11/30/2002 16 - Unknown CYTOTEC (MISOPROSTOL) 06/02/2005 16 - Unknown FOSAMAX (ALENDRONATE SODIUM) 01/04/2020 11 - Vomiting Comments: heartburn, vomiting GABAPENTIN 01/28/2021 1 - Mental Status Change KEFLEX (CEPHALEXIN) 08/13/2013 2 - Rash KETOCONAZOLE 09/06/2008 16 - Unknown LEVOFLOXACIN 01/26/2012 14 - Other: See Comments Comments: Pseudomonas MOBIC (MELOXICAM) 06/02/2005 16 - Unknown NITROFURANTOIN 05/15/2021 14 - Other: See Comments Comments: Per , he didn't feel well - unsure of reaction NSAIDS (NON-STEROIDAL ANTI-INFLAM*11/30/2002 16 - Unknown Comments: GI UPSET RELAFEN (NABUMETONE) 06/02/2005 16 - Unknown TERBINAFINE 10/02/2009 8 - GI Upset Date Reviewed: 10/12/2022 Reviewed by: Maile Jules White Lead Filterer - Fully Assessed Prescriptions as of 11/17/2022 - hydroCHLOROthiazide (HYDRODIURIL, ESIDRIX) 12.5 mg tablet Take 1 tablet by mouth once daily. - d-mannose powd Take by mouth. - quinapril (ACCUPRIL) 5 mg tablet Take 1 tablet by mouth once daily. - furosemide (LASIX) 20 mg tablet Take 1 tablet by mouth once daily. - tamsulosin (FLOMAX) 0.4 mg Take 1 capsule by mouth once daily. - finasteride (PROSCAR) 5 mg tablet Take 1 tablet by mouth once daily. - traZODone (DESYREL) 50 mg tablet Take 0.5 tablets by mouth daily at bedtime. - triamcinolone acetonide (KENALOG) 0.1 % cream Apply to affected areas (rosacea) as directed by provider - Docusate Sodium 250 mg capsule Take 250 mg by mouth twice daily. - atorvastatin (LIPITOR) 10 mg tablet Take 1 tablet by mouth daily at bedtime. For cholesterol. - pantoprazole DR (PROTONIX) 40 mg tablet Take 40 mg by mouth once daily. - doxycycline 20 mg tablet Take 20 mg by mouth twice daily. - multivit-min/iron/foli c acid/K (ADULTS MULTIVITAMIN ORAL) Take 1 tablet by mouth once daily. - MEDICAL SUPPLY KA for right lower extremity. - acetaminophen (TYLENOL) 500 mg tablet Take 2 tablets by mouth every 8 hours as needed for Pain or Fever. - aspirin 81 mg chewable tablet Take 1 tablet by mouth once daily. - calcium carbonate 600 mg-cholecalciferol 400 units (CALCIUM 600 + D) 600 mg(1,500mg) -400 unit tab Take 1 tablet by mouth twice daily. - metroNIDAZOLE 0.75 % cream Apply 1 application to affected area twice daily. Apply to areas of rosacea on the face Facility-Administered Medications as of 11/17/2022 - perflutren lipid microspheres 1.3 mL in NaCl (PF) 0.9% 10 mL injection (DEFINITY) - sodium chloride 0.9 % (flush) 10 mL (BD POSIFLUSH) Meds Comments as of 08/04/2022: 08/04/22 The medications are managed by this patient by: PATIENT and SPOUSE Dorothy Stuart, [facility] Normal [facility] Absolute lymphocyte countOrd ered By: Dr. Villanueva on 11-08-2022 Lymphocytes Auto (Unsp spec) [#/Vol] 1.30 10*3/uL 0.83-4.51 [facility] Basophil percentageOrdered B y: Dr. Villanueva on 11-08-2022 Basophils/100 WBC (Bld) 0.8 % 0-1 [facility] Bilirubin [Mass/Vol] 0.50 mg/dL 0.20-1.00 [facility] Comment on above: For patients on eltr ombopag therapy, use of Dimension [place] TBIL is not recommended. Chloride [Moles/Vol] 106 mmol/L 98-107 [facility] Eosinophils/100 WBC (Bld) 2.8 % 0-5 [facility] Glucose [Mass/Vol] 104 mg/dL 74-106 [facility] Comment on above: Fasting Glucose resu lt from 100 to 125 mg/dL suggests IMPAIRED HOMEOSTASIS per A.D.A. criteria. Neutrophils (Bld) [#/Vol] 1.8 10*3/uL 2.0-7.7 [facility] Neutrophils/100 WBC (Bld) 50.3 % 47-70 [facility] Potassium [Moles/Vol] 4.1 mmol/L 3.5-5.1 [facility] Protein [Mass/Vol] 6.7 g/dL 6.4-8.2 [facility] Sodium [Moles/Vol] 141 mmol/L 136-145 [facility] WBC (Bld) [#/Vol] 3.6 10*3/uL 4.4-11.0 [facility] Blood erythrocytes count (nu mber/volume)Ordered By: Dr. Villanueva on 11-08-2022 RBC (Bld) [#/Vol] 4.05 10*6/uL 4.6-6.2 [facility] Blood hemoglobin measurement (mass/volume)Ordered By: Dr. Villanueva on 11-08-2022 Hemoglobin (Bld) [Mass/Vol] 12.1 g/dL 13.0-16.5 [facility] Blood lymphocytes/100 leukoc ytesOrdered By: Dr. Villanueva on 11-08-2022 Lymphocytes/100 WBC (Bld) 36.5 % 19-41 [facility] Blood monocytes/100 leukocyt esOrdered By: Dr. Villanueva on 11-08-2022 Monocytes/100 WBC (Bld) 9.3 % 0-10 [facility] Blood platelet mean volumeOr dered By: Dr. Villanueva on 11-08-2022 Platelet mean volume (Bld) [Entitic vol] 9.3 fL 6.2-12.0 [facility] Determination of erythrocyte mean corpuscular volume (MCV)Ordered By: Dr. Villanueva on 11-08-2022 MCV (RBC) [Entitic vol] 95.8 fL 80-94 [facility] Hematocrit Auto (Bld) [Volum e fraction]Ordered By: Dr. Villanueva on 11-08-2022 Hematocrit (Bld) [Volume fraction] 38.8 % 40-54 [facility] Laboratory - Chemistry and C hemistry - challengeOrdered By: Dr. Villanueva on 11-08-2022 ALP [Catalytic activity/Vol] 51 U/L 45-117 [facility] ALT [Catalytic activity/Vol] 24 U/L 16-61 [facility] CO2 [Moles/Vol] 30.0 mmol/L 21.0-32.0 [facility] Globulin (S) [Mass/Vol] 2.9 g/dL 2.2-4.2 [facility] Natriuretic peptide B (Bld) [Mass/Vol] 69.4 pg/mL 0-100 [facility] Urea nitrogen/Creatinine [Mass ratio] 23.8 mg/mg 10-20 [facility] Laboratory - Hematology and Cell countsOrdered By: Dr. Villanueva on 11-08-2022 Erythrocyte distribution width (RBC) [Entitic vol] 49.2 fL 35.1-43.9 [facility] Erythrocyte distribution width (RBC) [Ratio] 13.8 % 11.6-14.6 [facility] Immature granulocytes/100 WBC (Bld) 0.300 % 0.0-0.9 [facility] Comment on above: IG% - Immature Granu locytes (promyelocytes, myelocytes and metamyelocytes) > 1% indicates that a LEFT SHIFT is Present. MCH (RBC) [Entitic mass] 29.9 pg 27.0-32.0 [facility] Nucleated RBC/100 WBC (Bld) [Ratio] 0 % 0-5 [facility] MCHC Auto (RBC) [Mass/Vol]Or dered By: Dr. Villanueva on 11-08-2022 MCHC (RBC) [Mass/Vol] 31.2 g/dL 32-36 [facility] No Panel InformationOrdered By: Dr. Villanueva on 11-08-2022 Estimated Creatinine Clearance Calc 62.71 ml/min [facility] Estimated GFR (MDRD) Amer 96 mL/min >60 [facility] Comment on above: GFR Calc Estimated GFR (MDRD) Non-Af Amer 79 mL/min >60 [facility] Comment on above: Non- GFR Calc Platelets bldOrdered By: Dr. Villanueva on 11-08-2022 Platelets (Bld) [#/Vol] 170 10*3/uL 150-450 [facility] Serum or plasma albumin shon urement (mass/volume)Ordered By: Dr. Villanueva on 11-08-2022 Albumin [Mass/Vol] 3.8 g/dL 3.2-5.0 [facility] Serum or plasma albumin/glob ulin mass ratioOrdered By: Dr. Villanueva on 11-08-2022 Albumin/Globulin [Mass ratio] 1.3 {ratio} 0.9-2.4 [facility] Serum or plasma calcium shon urement (mass/volume)Ordered By: Dr. Villanueva on 11-08-2022 Calcium [Mass/Vol] 8.9 mg/dL 8.5-10.1 [facility] Serum or plasma creatinine m easurement (mass/volume)Ordered By: Dr. Villanueva on 11-08-2022 Creatinine [Mass/Vol] 0.97 mg/dL 0.70-1.30 [facility] Comment on above: The validity of the calculated GFR & GFRAA in patients over 70 years has not been determined. Clinical correlation is essential. Serum or plasma urea nitroge n measurement (mass/volume)Ordered By: Dr. Villanueva on 11-08-2022 Urea nitrogen [Mass/Vol] 23 mg/dL 7-18 [facility] Thin prep Papanicolaou smear with manual screeningOrdered By: Dr. Villanueva on 11-08-2022 Thin prep Papanicolaou smear with manual screening 18 U/L 15-37 [facility] Thin prep Papanicolaou smear with manual screening 5 5-15 [facility] CNTHERAPYon 11-04-2022 CNTHERAPY OT/PT/Speech Visit (SPEMML) JAVIER BOND ([id number]) 1940 M NFR Date Time Provider Department 11/04/22 2:30 PM ESSENCE CASTAÑEDA Date Time Provider Department Center 11/04/2022 2:30 PM [id number] CASTAÑEDA [facility] Reason for Visit: Speech Progress Note [3487] Primary Visit Diagnosis:Dysphagia, unspecified type [R13.10] Allergies As of Date: 11/04/2022 Noted Allergy Reaction CONTRAST DYE 03/24/2009 4 - Hives FINACEA (AZELAIC ACID) 09/28/2017 2 - Rash BACTRIM (SULFAMETHOXAZOLE-TRIM ETH*06/02/2005 16 - Unknown BEXTRA (VALDECOXIB) 06/02/2005 16 - Unknown CARDURA (DOXAZOSIN MESYLATE) 06/02/2005 16 - Unknown CIPROFLOXACIN 11/30/2002 16 - Unknown CYTOTEC (MISOPROSTOL) 06/02/2005 16 - Unknown FOSAMAX (ALENDRONATE SODIUM) 01/04/2020 11 - Vomiting Comments: heartburn, vomiting GABAPENTIN 01/28/2021 1 - Mental Status Change KEFLEX (CEPHALEXIN) 08/13/2013 2 - Rash KETOCONAZOLE 09/06/2008 16 - Unknown LEVOFLOXACIN 01/26/2012 14 - Other: See Comments Comments: Pseudomonas MOBIC (MELOXICAM) 06/02/2005 16 - Unknown NITROFURANTOIN 05/15/2021 14 - Other: See Comments Comments: Per , he didn't feel well - unsure of reaction NSAIDS (NON-STEROIDAL ANTI-INFLAM*11/30/2002 16 - Unknown Comments: GI UPSET RELAFEN (NABUMETONE) 06/02/2005 16 - Unknown TERBINAFINE 10/02/2009 8 - GI Upset Date Reviewed: 10/12/2022 Reviewed by: Maile Jules White Lead Filterer - Fully Assessed Prescriptions as of 11/04/2022 - hydroCHLOROthiazide (HYDRODIURIL, ESIDRIX) 12.5 mg tablet Take 1 tablet by mouth once daily. - d-mannose powd Take by mouth. - quinapril (ACCUPRIL) 5 mg tablet Take 1 tablet by mouth once daily. - furosemide (LASIX) 20 mg tablet Take 1 tablet by mouth once daily. - tamsulosin (FLOMAX) 0.4 mg Take 1 capsule by mouth once daily. - finasteride (PROSCAR) 5 mg tablet Take 1 tablet by mouth once daily. - traZODone (DESYREL) 50 mg tablet Take 0.5 tablets by mouth daily at bedtime. - triamcinolone acetonide (KENALOG) 0.1 % cream Apply to affected areas (rosacea) as directed by provider - Docusate Sodium 250 mg capsule Take 250 mg by mouth twice daily. - atorvastatin (LIPITOR) 10 mg tablet Take 1 tablet by mouth daily at bedtime. For cholesterol. - pantoprazole DR (PROTONIX) 40 mg tablet Take 40 mg by mouth once daily. - doxycycline 20 mg tablet Take 20 mg by mouth twice daily. - multivit-min/iron/foli c acid/K (ADULTS MULTIVITAMIN ORAL) Take 1 tablet by mouth once daily. - MEDICAL SUPPLY KAFO for right lower extremity. - acetaminophen (TYLENOL) 500 mg tablet Take 2 tablets by mouth every 8 hours as needed for Pain or Fever. - aspirin 81 mg chewable tablet Take 1 tablet by mouth once daily. - calcium carbonate 600 mg-cholecalciferol 400 units (CALCIUM 600 + D) 600 mg(1,500mg) -400 unit tab Take 1 tablet by mouth twice daily. - metroNIDAZOLE 0.75 % cream Apply 1 application to affected area twice daily. Apply to areas of rosacea on the face Facility-Administered Medications as of 11/04/2022 - perflutren lipid microspheres 1.3 mL in NaCl (PF) 0.9% 10 mL injection (DEFINITY) - sodium chloride 0.9 % (flush) 10 mL (BD POSIFLUSH) Meds Comments as of 08/04/2022: 08/04/22 The medications are managed by this patient by: PATIENT and SPOUSE Dorothy Sade, [facility] CNTHERAPYon 10-18-2022 CNTHERAPY OT/PT/Speech Visit (SPEMML) JAVIER BOND ([id number]) 1940 M NFR Date Time Provider Department 10/18/22 11:30 AM ESSENCE CASTAÑEDA Date Time Provider Department Center 10/18/2022 11:30 AM [id number] CASTAÑEDA [facility] Reason for Visit: Speech Therapy [3489] Primary Visit Diagnosis:Dysphagia, unspecified type [R13.10] Allergies As of Date: 10/18/2022 Noted Allergy Reaction CONTRAST DYE 03/24/2009 4 - Hives FINACEA (AZELAIC ACID) 09/28/2017 2 - Rash BACTRIM (SULFAMETHOXAZOLE-TRIM ETH*06/02/2005 16 - Unknown BEXTRA (VALDECOXIB) 06/02/2005 16 - Unknown CARDURA (DOXAZOSIN MESYLATE) 06/02/2005 16 - Unknown CIPROFLOXACIN 11/30/2002 16 - Unknown CYTOTEC (MISOPROSTOL) 06/02/2005 16 - Unknown FOSAMAX (ALENDRONATE SODIUM) 01/04/2020 11 - Vomiting Comments: heartburn, vomiting GABAPENTIN 01/28/2021 1 - Mental Status Change KEFLEX (CEPHALEXIN) 08/13/2013 2 - Rash KETOCONAZOLE 09/06/2008 16 - Unknown LEVOFLOXACIN 01/26/2012 14 - Other: See Comments Comments: Pseudomonas MOBIC (MELOXICAM) 06/02/2005 16 - Unknown NITROFURANTOIN 05/15/2021 14 - Other: See Comments Comments: Per , he didn't feel well - unsure of reaction NSAIDS (NON-STEROIDAL ANTI-INFLAM*11/30/2002 16 - Unknown Comments: GI UPSET RELAFEN (NABUMETONE) 06/02/2005 16 - Unknown TERBINAFINE 10/02/2009 8 - GI Upset Date Reviewed: 10/12/2022 Reviewed by: Maile Jules 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 - d-mannose powd Take by mouth. - quinapril (ACCUPRIL) 5 mg tablet Take 1 tablet by mouth once daily. - hydroCHLOROthiazide (HYDRODIURIL, ESIDRIX) 12.5 mg tablet Take 1 tablet by mouth once daily. - furosemide (LASIX) 20 mg tablet Take 1 tablet by mouth once daily. - tamsulosin (FLOMAX) 0.4 mg Take 1 capsule by mouth once daily. - finasteride (PROSCAR) 5 mg tablet Take 1 tablet by mouth once daily. - traZODone (DESYREL) 50 mg tablet Take 0.5 tablets by mouth daily at bedtime. - triamcinolone acetonide (KENALOG) 0.1 % cream Apply to affected areas (rosacea) as directed by provider - Docusate Sodium 250 mg capsule Take 250 mg by mouth twice daily. - atorvastatin (LIPITOR) 10 mg tablet Take 1 tablet by mouth daily at bedtime. For cholesterol. - pantoprazole DR (PROTONIX) 40 mg tablet Take 40 mg by mouth once daily. - doxycycline 20 mg tablet Take 20 mg by mouth twice daily. - multivit-min/iron/foli c acid/K (ADULTS MULTIVITAMIN ORAL) Take 1 tablet by mouth once daily. - MEDICAL SUPPLY KAFO for right lower extremity. - acetaminophen (TYLENOL) 500 mg tablet Take 2 tablets by mouth every 8 hours as needed for Pain or Fever. - aspirin 81 mg chewable tablet Take 1 tablet by mouth once daily. - calcium carbonate 600 mg-cholecalciferol 400 units (CALCIUM 600 + D) 600 mg(1,500mg) -400 unit tab Take 1 tablet by mouth twice daily. - metroNIDAZOLE 0.75 % cream Apply 1 application to affected area twice daily. Apply to areas of rosacea on the face Facility-Administered Medications as of 10/18/2022 - perflutren lipid microspheres 1.3 mL in NaCl (PF) 0.9% 10 mL injection (DEFINITY) - sodium chloride 0.9 % (flush) 10 mL (BD POSIFLUSH) Meds Comments as of 08/04/2022: 08/04/22 The medications are managed by this patient by: PATIENT and SPOUSE Dorothy Stuart [facility] CNTHERAPYon 09-28-2022 CNTHERAPY OT/PT/Speech Visit (SPEMAGED) JAVIER BOND ([id number]) 1940 M NFR Date Time Provider Department 09/28/22 1:30 PM ESSENCE CASTAÑEDA Date Time Provider Department Center 09/28/2022 1:30 PM [id number] CASTAÑEDA [facility] Reason for Visit: Speech Evaluation [2787] Visit Diagnosis:Dysphagia, unspecified type [R13.10] Allergies As of Date: 09/28/2022 Noted Allergy Reaction CONTRAST DYE 03/24/2009 4 - Hives FINACEA (AZELAIC ACID) 09/28/2017 2 - Rash BACTRIM (SULFAMETHOXAZOLE-TRIM ETH*06/02/2005 16 - Unknown BEXTRA (VALDECOXIB) 06/02/2005 16 - Unknown CARDURA (DOXAZOSIN MESYLATE) 06/02/2005 16 - Unknown CIPROFLOXACIN 11/30/2002 16 - Unknown CYTOTEC (MISOPROSTOL) 06/02/2005 16 - Unknown FOSAMAX (ALENDRONATE SODIUM) 01/04/2020 11 - Vomiting Comments: heartburn, vomiting GABAPENTIN 01/28/2021 1 - Mental Status Change KEFLEX (CEPHALEXIN) 08/13/2013 2 - Rash KETOCONAZOLE 09/06/2008 16 - Unknown LEVOFLOXACIN 01/26/2012 14 - Other: See Comments Comments: Pseudomonas MOBIC (MELOXICAM) 06/02/2005 16 - Unknown NITROFURANTOIN 05/15/2021 14 - Other: See Comments Comments: Per , he didn't feel well - unsure of reaction NSAIDS (NON-STEROIDAL ANTI-INFLAM*11/30/2002 16 - Unknown Comments: GI UPSET RELAFEN (NABUMETONE) 06/02/2005 16 - Unknown TERBINAFINE 10/02/2009 8 - GI Upset Date Reviewed: 08/26/2022 Reviewed by: Paul Singletary RN - Fully Assessed Prescriptions as of 09/28/2022 - traZODone (DESYREL) 50 mg tablet Take 0.5 tablets by mouth daily at bedtime. - quinapril (ACCUPRIL) 5 mg tablet Take 1 tablet by mouth once daily. - hydroCHLOROthiazide (HYDRODIURIL, ESIDRIX) 12.5 mg tablet Take 1 tablet by mouth once daily. - triamcinolone acetonide (KENALOG) 0.1 % cream Apply to affected areas (rosacea) as directed by provider - Docusate Sodium 250 mg capsule Take 250 mg by mouth twice daily. - atorvastatin (LIPITOR) 10 mg tablet Take 1 tablet by mouth daily at bedtime. For cholesterol. - pantoprazole DR (PROTONIX) 40 mg tablet Take 40 mg by mouth once daily. - furosemide (LASIX) 20 mg tablet Take 1 tablet by mouth once daily. - tamsulosin (FLOMAX) 0.4 mg Take 1 capsule by mouth once daily. - doxycycline 20 mg tablet Take 20 mg by mouth twice daily. - finasteride (PROSCAR) 5 mg tablet Take 1 tablet by mouth once daily. - multivit-min/iron/foli c acid/K (ADULTS MULTIVITAMIN ORAL) Take 1 tablet by mouth once daily. - lactobacillus combination no.8 (ADULT PROBIOTIC ORAL) Take 1 capsule by mouth once daily. - MEDICAL SUPPLY KAFO for right lower extremity. - acetaminophen (TYLENOL) 500 mg tablet Take 2 tablets by mouth every 8 hours as needed for Pain or Fever. - aspirin 81 mg chewable tablet Take 1 tablet by mouth once daily. - melatonin 3 mg tablet Take 1 tablet by mouth daily at bedtime. - calcium carbonate 600 mg-cholecalciferol 400 units (CALCIUM 600 + D) 600 mg(1,500mg) -400 unit tab Take 1 tablet by mouth twice daily. - metroNIDAZOLE 0.75 % cream Apply 1 application to affected area twice daily. Apply to areas of rosacea on the face Facility-Administered Medications as of 09/28/2022 - perflutren lipid microspheres 1.3 mL in NaCl (PF) 0.9% 10 mL injection (DEFINITY) - sodium chloride 0.9 % (flush) 10 mL (BD POSIFLUSH) Meds Comments as of 08/04/2022: 08/04/22 The medications are managed by this patient by: PATIENT and SPOUSE Dorothy Stuart [facility] 08-27-2022 [facility] ID: [id number] Author: BALJIT Solis) Service: ? Author Type: Technologist Type: Allied Health Filed: 08/27/2022 11:29 AM Note Text: Radiology Service Progress Note PATIENT NAME: Javier Bond DATE OF SERVICE: August 27, 2022 TIME: 11:28 AM PATIENT IDENTITY VERIFICATION COMPLETED USING TWO (2) IDENTIFIERS: Name and Date of confirmed by patient verbally and Name and Date of confirmed by identification band. FALL SCREENING: Has the patient had 2 falls in the last year or 1 fall with injury or currently using an Ambulatory Assistive Device (Walker, Cane, Wheelchair, Crutches, etc.)? Inpatient: Screened on floor PATIENT GENDER DATA: Male PATIENT RELEVANT IMPLANT DATA REVIEWED: Not Applicable RADIOLOGY DEPARTMENT: General X-ray: Exam(s) Completed: GI/ Procedure(s): Modified barium swallow with barium contrast PERIPHERAL IV DATA: Not applicable SIGNED BY: RT Will(R) August 27, 2022 11:28 AM [facility] HNO ID: [id number] Author: Petey Rosas PA-C Service: Cardiac Surgery Author Type: Physician Cutter Finisher Type: Discharge Summary Filed: 08/27/2022 1:05 PM Note Text: Attestation signed by Sofia Wilde MD at 08/27/2022 1:34 PM Attending Note I have personally performed a face to face assessment of the patient and have reviewed the LUIS note. I performed a substantive portion of the visit including all aspects of the following. My douglas findings include: The patient's course has been unremarkable and the patient is doing well. The patient has been counseled on diet. The patient is ambulatory and independent. The patient is tolerating his prescribed diet. This patient is stable for discharge to home. Other additions or changes: The patient has been given written discharge instructions. The patient has been encouraged to call for any changes, concerns or questions. I will see the patient in follow up in 4 weeks with a chest x-ray. The patient will see ENT as an outpatient next week. Signature: Sofia Wilde MD Date: 08/27/2022 Time: 1:33 PM Department of Thoracic Surgery Discharge Summary (Template ID [id number]) PATIENT NAME: Javier Bond ADMISSION DATE: 08/25/2022 DISCHARGE DATE: 08/27/2022 Attending Physician: Sofia Wilde MD Code Status: Not on file Primary Service: Admission Diagnosis: dysphagia Discharge Diagnosis: dysphagia Reason for Hospitalization: dysphagia Operations during Hospitalization: none Hospital Course: * How was the Reason for Hospitalization Addressed: Javier Bond is a 81 year old male with pmhx of HTN, BPH, and GERD re-admitted to on 08/26/2022 complaining of excessive secretions after he recently underwent Left cervical exploration, mobilization of the cervical esophagus, and 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 No diverticulum was able to be identified. Esophagram was performed the following day and showed the location of the zenker's diverticulum to be superior to the dissection plane. The decision was then made to reexplore the neck. The patient was brought back to the operting room on 07/31 and underwent cervical reexploration, esophageal diverticulectomy, and esophogeal myotomy. He was discharged home on 08/02/2022 in good condition. Since discharge he has been complaining of dysphagia with a 1-2lb weight loss. However, over the last week the patient's dysphagia has been improving. He has been able to tolerate a soft solid diet getting approx. 0423-7124 calories/day. He has been tolerating peanut butter sandwiches, oatmeal, liquids, and salmon patties. He has since re-gained the 2lbs he initially lost. He is now complaining of excessive secretions and sputum. He does note his voice is hoarse and changes in pitch/tone frequently. He denies reflux of foods, coking, coughing, fever, chills, SOB. Patient underwent modified barium swallow study on 08/27/2022 and passed. Speech recommending to change diet to soft and bite sized/thin liquids. Patient to discharge home today 08/27/2022 with no needs. Patient to follow up with ENT as outpatient. Patient to follow up with thoracic surgery as needed * What were the Active Issues: dysphagia * Hospital Course Complicated by: none * Extended Hospital Stay Due to: none * Specific Medication Changes: none * Surgical Pathology/Microbiology : none * Pain: none * Surgical Incisions/ Wounds: none * Tubes/Lines/Drains on Discharge: none * Patient Condition at Discharge: Stable * Disposition: Home with Self Care Problem List: Patient Active Hospital Problem List: Dysphagia (07/29/2022) Moderate protein-calorie malnutrition (HCC) (08/26/2022) Consults: None Procedures/Radiology: Barium esophagram: date: 08/27/2022 Information Provided to the Patient: Patient given copy of After Visit Summary which included activity instructions, diet instructions, wound care instructions, medication instructions and follow up appointment. ALLERGIES Allergen Reactions Contrast Dye Hives Finacea [Azelaic Ac* Rash Bactrim [Sulfametho* Unknown Bextra [Valdecoxib] Unknown Cardura [Doxazosin * Unknown Ciprofloxacin Unknown Cytotec [Misoprosto* Unknown Fosamax [Alendronat* Vomiting heartburn, vomiting Gabapentin Mental Status Change Keflex [Cephalexin] Rash Ketoconazole Unknown Levofloxacin Other: See Comments Pseudomonas Mobic [Meloxicam] Unknown Nitrofurantoin Other: See Comments Per , "he didn't feel well" - unsure of reaction Nsaids (Non-Steroid* Unknown GI UPSET Relafen [Nabumetone] Unknown Terbinafine GI Upset Discharge Medications: Current Discharge Medication List CONTINUE these medications which have NOT CHANGED hydroCHLOROthiazide (HYDRODIURIL, ESIDRIX) 12.5 mg Take 12.5 m (more content not included)... Normal [facility] NURSING PROGon 08-27-2022 NURSING PROG HNO ID: [id number] Author: Elizabet Escobar RN Service: ? Author Type: Registered Nurse Type: Nursing Progress Note Filed: 08/27/2022 4:23 PM Note Text: Daily note: 1030: Pt out of unit for modified barium test. Pt in stable condition,VSS. 1130: patient back to T34, VSS. 1530: Patient discharged home on a wheelchair. In stable condition. to take patient home. All belongings with the patient. Discharge paper work reviewed with the patient and the spouse who verbalized understanding. [facility] NUTRITIONon 08-27-2022 NUTRITION HNO ID: [id number] Author: Deena Ha RD Service: Nutrition Therapy Author Type: Registered Dietitian Type: Nutrition Filed: 08/27/2022 12:24 PM Note Text: NUTRITION BRIEF NOTE SERVICE DATE: 08/27/2022 Care Plan: Change diet to soft and bite sized/thin liquids Supplements: Ensure Enlive Monitor and Evaluation: Meet greater than 75% of estimated needs;Monitor bowel function;Monitor fluid/electrolyte balance;Monitor labs, I/Os, vital signs, weight Interval History: Pt failed swallow eval and passed MBS today. Will advance diet and add supplements. MNT Billing: $ Routine Care : 1-15 minutes SIGNATURE: Deena Ha MS,NADIA,LD DATE: 08/27/2022 TIME: 12:21 PM [facility] THERAPY NTon 08-27-2022 THERAPY NT HNO ID: [id number] Author: Clara Field CCC-[employer] MEMBER Service: Speech/Swallow Author Type: Speech Language Pathologist Type: Therapy (PT/OT/Speech/Resp) Filed: 08/27/2022 1:43 PM Note Text: Speech Therapy Treatment SERVICE DATE: 08/27/2022 SERVICE TIME: 1115 to 1145 ROOM: [place] [address] IMPRESSION: Evidence of: Oropharyngeal dysphagia, Concern for possible esophageal impairment An elevated risk for aspiration: Yes Swallow Efficiency: Impaired Diet Recommendations: Soft and Bite-Sized IDDSI Level 6;Thin Liquids IDDSI Level 0;Medications crushed in puree (pudding/applesauce) Swallowing Precautions Recommendations: Alternate bites and sips;Double swallows;Effortful swallow;Feed / Eat at a slow rate;Chin tuck;Limit Distractions;Maintain an upright position 20-30 minutes following all oral intake;No straws;Sit upright 90 degrees for all PO;Small Bite/Sip;Reduced bite size;Controlled Volume with each drink presentation Nursing Recommendations: Maintain normal schedule (meals, sleep/wake, toileting/bathing);Pro mote insight/safety opportunities;Reduce environmental distractions / stimulation;GERD Precautions;Reinforce an upright position during / after all PO;Reinforce use of swallowing strategies;See swallow guide posted in patients room;Utilize bed in chair position Instrumental Swallow Assessment Recommendations: Modified Barium Swallow Study (MBSS) Recommended Discharge Disposition: Outpatient Speech Therapy Current Hospital Course: Patient currently NPO Reason for Hospital Admission: dysphagia Rehabilitation Precautions: Modified Diet;Aspiration Precautions;Dysphagia; Cognitive Linguistics Deficits Reason for Speech Therapy Consult: r/o aspiration and determine safety of PO intake Relevant Past Medical History: depression,anxiety, HTN, GERD, lumbar spondylosis,s/p lumbar fusion, compression fxs of spine, dysphagia, esophageal diverticulum, s/p R cricopharyngeal myotomy and diverticulectomy (07/29/22) Response to Therapy Interventions: Cognitive Deficits, Increased knowledge and Awareness to Deficits, Receptive Family / Caregivers Speech Therapy Problem List: Dysphagia Patient Report: "the more you talk about it the more I am getting it" Current Status Oral Hygiene: Clear, moist oral cavity Dentition: Retains Natural Dentition Current Feeding Method: N/A Current Diet Textures: NPO Current Level Of Communication: Verbal Current Management Of Secretions: Able to expectorate adequately;Able to complete volitional cough;Able to complete volitional swallow Oral Motor Exam: Within Functional Limits Cognition Cognitive Status: Within Functional Limits For Current Session Except Cognitive Deficits: Memory Deficits Memory Deficits: Immediate, Short Term Swallow Position Of Patient During Assessment: Upright In Chair Compensatory Strategies Utilized During Assessment: Alternate bites and sips, Chin tuck, Double swallows, Feed / Eat at a slow rate, Maintain an upright position 20-30 minutes following all oral intake, Medications whole in puree, No straws, Self-monitoring, Sit upright 90 degrees for all PO, Small Bite/Sip Previous Swallow Study: Clinical Swallow Instrumental Swallow Assessment Instrumental Swallow Assessment Type: Modified Barium Swallow Study Modified Barium Swallow Views: Lateral position MBS Consistencies Tested: Pureed with Barium Paste, Soft and Bite-Sized with Barium Paste, Solid with Barium Paste, 13 mm Barium Tablet, Mildly Thick Barium Liquids (Pandora Thick), Thin Barium Liquids Oral Phase: As Follows Lip Closure: Interlabial escape/no progression to anterior lip Tongue Control During Bolus Hold: Escape to lateral buccal cavity and/or floor of mouth Bolus Preparation/Masticatio n: Slow prolonged mastication with complete re-collection necessary Bolus Transport/Lingual Motion: Slowed Tongue Motion for A-P movement of the bolus, Repetitive/disorganize d tongue motion (tongue pumping) Oral Residue: Residue collection on oral structure Initiation Of Pharyngeal Swallow: Bolus head at posterior laryngeal surface of epiglottis Pharyngeal Phase: As Follows Soft Palate Elevation: No bolus between soft palate/pharyngeal wall Laryngeal Elevation: Partial superior movement of thyroid cartilage and/or partial approximation of arytenoids to epiglottic petiole Anterior Hyoid Excursion: Partial anterior movement Epiglottic Movement: Complete inversion Laryngeal Vestibular Closure/Height of the Swallow: Incomplete - narrow column of air/contrast in laryngeal vestibule Pharyngeal Stripping Wave: Present, however, diminished Pharyngeal Contraction (A/P View Only): Not tested Pharyngoesophageal Segment Opening: Partial distension/partial duration with partial obstruction of flow of bolus Tongue Base Retraction: Narrow column of contrast or air between tongue base and pharyngeal wall Pharyngeal Residue: Collection of residue within or on the (more content not included)... [facility] THERAPY NT HNO ID: [id number] Author: Clara Field CCC-[employer]BER Service: Speech/Swallow Author Type: Speech Language Pathologist Type: Therapy (PT/OT/Speech/Resp) Filed: 08/27/2022 1:35 PM Note Text: Speech Therapy MBSS Evaluation SERVICE DATE: 08/27/2022 SERVICE TIME: 1040 to 1125 ROOM: [place] [address] IMPRESSION: Evidence of: Oropharyngeal dysphagia, Concern for possible esophageal impairment An elevated risk for aspiration: Yes Swallow Efficiency: Impaired Diet Recommendations: Soft and Bite-Sized IDDSI Level 6;Thin Liquids IDDSI Level 0;Medications crushed in puree (pudding/applesauce) Swallowing Precautions Recommendations: Alternate bites and sips;Double swallows;Effortful swallow;Feed / Eat at a slow rate;Chin tuck;Limit Distractions;Maintain an upright position 20-30 minutes following all oral intake;No straws;Sit upright 90 degrees for all PO;Small Bite/Sip;Reduced bite size;Controlled Volume with each drink presentation Nursing Recommendations: Maintain normal schedule (meals, sleep/wake, toileting/bathing);Pro mote insight/safety opportunities;Reduce environmental distractions / stimulation;GERD Precautions;Reinforce an upright position during / after all PO;Reinforce use of swallowing strategies;See swallow guide posted in patients room;Utilize bed in chair position Instrumental Swallow Assessment Recommendations: repeat Modified Barium Swallow Study (MBSS) per outpatient [employer] MEMBER Recommended Discharge Disposition: Outpatient Speech Therapy Current Hospital Course: Patient currently NPO Reason for Hospital Admission: dysphagia Rehabilitation Precautions: Modified Diet;Aspiration Precautions;Dysphagia; Cognitive Linguistics Deficits Reason for Speech Therapy Consult: r/o aspiration and determine safety of PO intake Relevant Past Medical History: depression,anxiety, HTN, GERD, lumbar spondylosis,s/p lumbar fusion, compression fxs of spine, dysphagia, esophageal diverticulum, s/p R cricopharyngeal myotomy and diverticulectomy (07/29/22) Response to Therapy Interventions: Aspiration Risk, Cognitive Deficits, Good Participation in activities, Increased knowledge and Awareness to Deficits, Multiple medical concerns, On-Track to achieve discharge goals, Requires additional time / repetition Speech Therapy Problem List: Dysphagia Patient Report: "sip, tuck and swallow, right?" Current Status Oral Hygiene: Clear, moist oral cavity Dentition: Retains Natural Dentition Current Feeding Method: N/A Current Diet Textures: NPO Current Level Of Communication: Verbal Current Management Of Secretions: Able to expectorate adequately;Able to complete volitional cough;Able to complete volitional swallow Oral Motor Exam: Within Functional Limits Cognition Cognitive Status: Within Functional Limits For Current Session Except Cognitive Deficits: Memory Deficits Memory Deficits: Immediate, Short Term Swallow Position Of Patient During Assessment: Upright In Chair Compensatory Strategies Utilized During Assessment: Alternate bites and sips, Chin tuck, Double swallows, Feed / Eat at a slow rate, Maintain an upright position 20-30 minutes following all oral intake, Medications whole in puree, No straws, Self-monitoring, Sit upright 90 degrees for all PO, Small Bite/Sip Previous Swallow Study: Clinical Swallow Instrumental Swallow Assessment Instrumental Swallow Assessment Type: Modified Barium Swallow Study Modified Barium Swallow Views: Lateral position MBS Consistencies Tested: Pureed with Barium Paste, Soft and Bite-Sized with Barium Paste, Solid with Barium Paste, 13 mm Barium Tablet, Mildly Thick Barium Liquids (Pandora Thick), Thin Barium Liquids Oral Phase: As Follows Lip Closure: Interlabial escape/no progression to anterior lip Tongue Control During Bolus Hold: Escape to lateral buccal cavity and/or floor of mouth Bolus Preparation/Masticatio n: Slow prolonged mastication with complete re-collection necessary Bolus Transport/Lingual Motion: Slowed Tongue Motion for A-P movement of the bolus, Repetitive/disorganize d tongue motion (tongue pumping) Oral Residue: Residue collection on oral structure Initiation Of Pharyngeal Swallow: Bolus head at posterior laryngeal surface of epiglottis Pharyngeal Phase: As Follows Soft Palate Elevation: No bolus between soft palate/pharyngeal wall Laryngeal Elevation: Partial superior movement of thyroid cartilage and/or partial approximation of arytenoids to epiglottic petiole Anterior Hyoid Excursion: Partial anterior movement Epiglottic Movement: Complete inversion Laryngeal Vestibular Closure/Height of the Swallow: Incomplete - narrow column of air/contrast in laryngeal vestibule Pharyngeal Stripping Wave: Present, however, diminished Pharyngeal Contraction (A/P View Only): Not tested Pharyngoesophageal Segment Opening: Partial distension/partial duration with partial obstruction of flow of bolus Tongue Base Retraction (more content not included)... [facility] XR MOD BARIUM SWALLOW W IVADonna Edwar 08-27-2022 XR MOD BARIUM SWALLOW W SPEECH * * *Final Report* * * DATE OF EXAM: Aug 27 2022 11:28AM [id number] - XR MOD BARIUM SWALLOW W SPEECH / PROCEDURE REASON: Aspiration * * * * Physician Interpretation * * * * VIDEO SWALLOW HISTORY: ASPIRATION RESULT: Fluoroscopy was provided during performance of a swallowing evaluation by the speech pathologist using a total radiation exposure time of 7:00 and effective radiation dose of 170.8 mGy IMPRESSION: SPEECH PATHOLOGIST REPORT AND RECOMMENDATIONS ARE PRESENT IN THE NOTES COMPONENT OF [facility]. 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: BRIAN Transcribe Date/Time: Aug 27 2022 12:32P Dictated by : NADIA VARGAS MD This examination was interpreted and the report reviewed and electronically signed by: NADIA VARGAS MD on Aug 27 2022 12:32PM EST [id number] [facility] ALLIED HEALTHon 08-26-2022 ALLIED HEALTH HNO ID: [id number] Author: RT Zora(R) Service: ? Author Type: Technologist Type: Allied Health Filed: 08/25/2022 10:51 PM Note Text: Radiology Service Progress Note PATIENT NAME: Javier Bond DATE OF SERVICE: August 25, 2022 TIME: 10:50 PM PATIENT IDENTITY VERIFICATION COMPLETED USING TWO (2) IDENTIFIERS: Name and Date of confirmed by patient verbally and Name and Date of confirmed by identification band. FALL SCREENING: Has the patient had 2 falls in the last year or 1 fall with injury or currently using an Ambulatory Assistive Device (Walker, Cane, Wheelchair, Crutches, etc.)? Inpatient: Screened on floor PATIENT GENDER DATA: Male PATIENT RELEVANT IMPLANT DATA REVIEWED: Not Applicable RADIOLOGY DEPARTMENT: General X-ray: Exam(s) Completed: Chest X-Ray PERIPHERAL IV DATA: Not applicable SIGNED BY: Shannan Rogers RT(R) August 25, 2022 10:50 PM Normal [facility] Basic metabolic 2000 panelon 08-26-2022 Anion gap [Moles/Vol] 10 mmol/L Normal 9-18 [facility] Comment on above: Order Comment: Speci men Type: BLOOD SPECIMEN Ordering Facility: [facility] Address: [address] [address] Performed By: #### 2 4320-10, #### [facility] CLIA [id number] [address] [place] [address] [place] Calcium [Mass/Vol] 8.8 mg/dL Normal 8.5-10.2 [facility] Comment on above: Order Comment: Speci men Type: BLOOD SPECIMEN Ordering Facility: [facility] Address: [address] [address] Performed By: #### 2 4320-10, #### [facility] CLIA [id number] [address] [place] [address] [place] Chloride [Moles/Vol] 104 mmol/L Normal 97-105 [facility] Comment on above: Order Comment: Speci men Type: BLOOD SPECIMEN Ordering Facility: [facility] Address: [address] Performed By: #### 2 2, #### [facility] CLIA [id number] [address] [place] [address] [place] CO2 [Moles/Vol] 27 mmol/L Normal 22-30 [facility] Comment on above: Order Comment: Speci men Type: BLOOD SPECIMEN Ordering Facility: [facility] Address: [address] [address] Performed By: #### 2 4320-10, #### [facility] CLIA [id number] [place] [address] [place] Creatinine [Mass/Vol] 0.79 mg/dL Normal 0.73-1.22 [facility] Comment on above: Order Comment: Manpreet macias Type: BLOOD SPECIMEN Ordering Facility: [facility] Address: [address] [place] [address] Performed By: #### 2 432-2, #### [facility] CLIA [id number] [place] [address] [place] ESTIMATED GLOMERULAR FILTRATION RATE 90 mL/min/1.73m??? Normal >=60 [facility] Comment on above: Order Comment: Salvatore colleen Type: BLOOD SPECIMEN Ordering Facility: [facility] Address: [address] [place] [address] Result Comment: [place] mated Glomerular Filtration Rate (eGFR) is calculated using the 2020 CKD-EPI creatinine equation. This equation utilizes serum creatinine, sex, and age as parameters. The creatinine assay has traceable calibration to isotope dilution-mass spectrometry. Refer to KDIGO guidelines for clinical interpretation. In patients with unstable renal function, e.g. those with acute kidney injury, the eGFR may not accurately reflect actual GFR. Performed By: #### 2 432-2, #### [facility] CLIA [id number] [place] [address] [place] Glucose [Mass/Vol] 91 mg/dL Normal 74-99 [facility] Comment on above: Order Comment: Manpreet macias Type: BLOOD SPECIMEN Ordering Facility: [facility] Address: [address] [place] [address] Result Comment: The [place] Diabetes Association (ADA) provides guidance for cutoff values for fasting glucose and random glucose. The ADA defines fasting as no caloric intake for at least 8 hours. Fasting plasma glucose results between 100 to 125 mg/dL indicate increased risk for diabetes (prediabetes). Fasting plasma glucose results greater than or equal to 126 mg/dL meet the criteria for diagnosis of diabetes. In the absence of unequivocal hyperglycemia, results should be confirmed by repeat testing. In a patient with classic symptoms of hyperglycemia or hyperglycemic crisis, random plasma glucose results greater than or equal to 200 mg/dL meet the criteria for diagnosis of diabetes. Reference: Standards of Medical Care in Diabetes 2016, [place] [employer]. Diabetes Care. 2016.39(Suppl 1). Performed By: #### 2 1-2, #### [facility] CLIA [id number] [address] [place] [address] [place] Potassium [Moles/Vol] 3.7 mmol/L Normal 3.7-5.1 [facility] Comment on above: Order Comment: Speci men Type: BLOOD SPECIMEN Ordering Facility: [facility] Address: [address] [address] Performed By: #### 2 4320-10, #### [facility] CLIA [id number] [address] [place] [address] [place] Sodium [Moles/Vol] 141 mmol/L Normal 136-144 [facility] Comment on above: Order Comment: Speci men Type: BLOOD SPECIMEN Ordering Facility: [facility] Address: [address] [address] Performed By: #### 2 4320-10, #### [facility] CLIA [id number] [address] [place] [address] [place] Urea nitrogen [Mass/Vol] 28 mg/dL High 9-24 [facility] Comment on above: Order Comment: Salvatorei men Type: BLOOD SPECIMEN Ordering Facility: [facility] Address: [address] [address] Performed By: #### 2 2, #### [facility] CLIA [id number] [address] [place] [address] [place] CBC panel Auto (Bld)on 08-26 Erythrocyte distribution width (RBC) [Ratio] 12.9 % Normal 11.5-15.0 [facility] Comment on above: Order Comment: Speci men Type: BLOOD SPECIMEN Ordering Facility: [facility] Address: [address] [address] Performed By: #### 5 8410-2 #### [facility] CLIA [id number] [address] [place] [address] [place] Hematocrit (Bld) [Volume fraction] 32.6 % Low 39.0-51.0 [facility] Comment on above: Order Comment: Speci men Type: BLOOD SPECIMEN Ordering Facility: [facility] Address: [address] [place] [address] Performed By: #### 5 8410-2 #### [facility] CLIA [id number] [address] [place], [place] [address] [place] Hemoglobin (Bld) [Mass/Vol] 10.5 g/dL Low 13.0-17.0 [facility] Comment on above: Order Comment: Speci men Type: BLOOD SPECIMEN Ordering Facility: [facility] Address: [address] [place] [address] Performed By: #### 5 8410-2 #### [facility] CLIA [id number] [address] [place] [address] MCH (RBC) [Entitic mass] 29.9 pg Normal 26.0-34.0 [facility] Comment on above: Order Comment: Speci men Type: BLOOD SPECIMEN Ordering Facility: [facility] Address: [address] [place] [address] Performed By: #### 5 8410-2 #### [facility] CLIA [id number] [address] [place] [address] [place] MCHC (RBC) [Mass/Vol] 32.2 g/dL Normal 30.5-36.0 [facility] Comment on above: Order Comment: Speci men Type: BLOOD SPECIMEN Ordering Facility: [facility] Address: [address] [place] [address] Performed By: #### 5 8410-2 #### [facility] CLIA [id number] [address] [place] [address] MCV (RBC) [Entitic vol] 92.9 fL Normal 80.0-100.0 [facility] Comment on above: Order Comment: Speci men Type: BLOOD SPECIMEN Ordering Facility: [facility] Address: [address] [address] Performed By: #### 5 8410-2 #### [facility] CLIA [id number] [address] [place] [address] [place] Nucleated RBC (Bld) [#/Vol] 10*3/uL Normal <0.01 [facility] Comment on above: Order Comment: Speci men Type: BLOOD SPECIMEN Ordering Facility: [facility] Address: [address] [address] Performed By: #### 5 8410-2 #### [facility] CLIA [id number] [address] [place] [address] [place] Platelet mean volume (Bld) [Entitic vol] 9.1 fL Normal 9.0-12.7 [facility] Comment on above: Order Comment: Speci men Type: BLOOD SPECIMEN Ordering Facility: [facility] Address: [address] [address] Performed By: #### 5 8410-2 #### [facility] CLIA [id number] [address] [place] [address] [place] Platelets (Bld) [#/Vol] 205 10*3/uL Normal 150-400 [facility] Comment on above: Order Comment: Speci men Type: BLOOD SPECIMEN Ordering Facility: [facility] Address: [address] [address] Performed By: #### 5 8410-2 #### [facility] CLIA [id number] [address] [place] [address] [place] RBC (Bld) [#/Vol] 3.51 10*6/uL Low 4.20-6.00 [facility] Comment on above: Order Comment: Speci men Type: BLOOD SPECIMEN Ordering Facility: [facility] Address: [address] [place] [address] Performed By: #### 5 8410-2 #### [facility] CLIA [id number] [address] [place] [address] [place] WBC (Bld) [#/Vol] 7.20 10*3/uL Normal 3.70-11.00 [facility] Comment on above: Order Comment: Speci men Type: BLOOD SPECIMEN Ordering Facility: [facility] Address: [place] [address] Performed By: #### 5 8410-2 #### [facility] CLIA [id number] [address] [id number] [facility] CONSULTon 08-26-2022 CONSULT HNO ID: [id number] Author: Tiffani Becerra MD Service: General Surgery Author Type: Resident Type: Consults Filed: 08/26/2022 12:40 PM Note Text: GENERAL SURGERY CONSULT NOTE HISTORY AND PHYSICAL EXAMINATION SERVICE DATE: 08/26/2022 SERVICE TIME: 8AM PRIMARY CARE PHYSICIAN: Francisoc Bahena MD ASSESSMENT AND PLAN This is a 81 year old male with a history as indicated below and especially significant for a cervical exploration, esophagus mobilization (07/29), followed by a re-exploration and Zenker's diverticulectomy (07/31), as well as a lap Demetrio fundoplication, revision of a Demetrio, and laparoscopic cholecystectomy, for whom the general surgery service was consulted for evaluation of possible G vs J tube placement. He reports he is consuming 1500 calories a day and is able to tolerate intake without regurgitation. He has been able to maintain his weight and is not having choking episodes or feeling of food lodging in his throat, but is having some difficulty managing his saliva and feels his voice is more hoarse than normal. As he is meeting his nutritional goals via PO intake, he does not require feeding tube placement. He additionally does not want a G tube and does not feel this is necessary. Recommendations: -no indication for feeding tube placement as patient is meeting nutrition needs via PO intake -consider nutrition consult for recommendations -general surgery to sign off, please reach out should any further needs arise Plan discussed with chief resident and lactation nurse surgery staff. SUBJECTIVE CHIEF COMPLAINT: Dysphagia HPI: This is a 81 year old male with a history as indicated below and especially significant for a cervical exploration, esophagus mobilization (07/29), followed by a re-exploration and Zenker's diverticulectomy (07/31), as well as a lap Demetrio fundoplication, revision of a Demetrio, and laparoscopic cholecystectomy, for whom the general surgery service was consulted for evaluation of possible G vs J tube placement. He reports he has had difficulty managing his saliva and has felt more hoarse lately, but is able to drink Ensure shakes and water with minimal issue, and he is able to eat soft food. He is not having regurgitation and has been able to maintain his weight, noting maybe a 1-2lb weight loss because he was on a liquid diet for a few weeks. He has no abdominal pain or choking episodes, and does not feel that food gets stuck in his throat. His main concern is the difficulty in turning his head. On evaluation, patient appears well. He has a well healing neck incision, but does have difficulty turning his head and reports this may be related to a chronic compression fracture. He feels that his voice is more hoarse than normal and he is producing phlegm approximately every 30 minutes that he is not able to swallow. Esophagram done on 08/17 notable for aspiration and difficulty of patient to tolerate exam due to dysphagia. The patient reports he was not able to tolerate this esophagram because he was laid flat for the procedure, but reports he has tolerates esophagrams without issue when he is sitting up. A CTAP done on 08/16 notes a small hiatal hernia but is otherwise unremarkable. Denies chest pain, dizziness, lightheadedness, or shortness of breath. Patient does not take anticoagulants. PAST MEDICAL HISTORY: 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 Chronic constipation 12/03/2020 Compression fracture of third lumbar vertebra (HCC) 11/05/2019 Degenerative lumbar spinal stenosis 12/15/2020 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/28/2017 Elevated blood sugar 08/31/2021 Episodic cluster headache, not intractable 09/09/2015 Essential hypertension, benign Family history of malignant neoplasm of gastrointestinal tract GERD (gastroesophageal reflux disease) 03/25/2009 History of compression fracture of spine 11/05/2019 Hypercalciuria, idiopathic 02/11/2020 Hypertrophy of prostate without urinary obstruction and other lower urinary tract symptoms (LUTS) Ilioinguinal neuralgia of left side 09/27/2019 Internal hemorrhoids without mention of complication Lumbar degenerative disc disease 09/14/2012 Lumbar radiculopathy 07/03/2020 Medicare annual wellness visit, subsequent 09/10/2021 Medicare Part B: Not able to find Last done: 09/10/2021 Nephrolithiasis 07/04/2007 Osteoporosis 01/28/2020 Other specified anemias 03/16/2022 Acute blood loss 11/2020 (post surgery) Primary osteoarthritis of both first carpometacarpal joints 05/04/2018 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 09/09/2015 Rosacea 09/09/2015 S/P lumbar spinal fusion 12/15/2020 Sepsis due to Gram-negative organism with septic shock (HCC) 12/17/2020 Proteus (more content not included)... Normal [employer] [facility] HISTORY PHYSICALon 2 HISTORY PHYSICAL HNO ID: [id number] Author: Lázaro Conley PA-C Service: Cardiac Surgery Author Type: Physician Cutter Finisher Type: HANDP Filed: 08/26/2022 12:01 PM Note Text: [facility] HISTORY AND PHYSICAL Javier Bond [id number] PRIMARY SERVICE: Thoracic Surgery - Dr. Sofia Wilde DATE OF ADMISSION: 08/25/2022 CHIEF COMPLAINT Dysphagia HISTORY OF PRESENT ILLNESS Javier Bond is a 81 year old male with pmhx of HTN, BPH, and GERD re-admitted complaining of excessive secretions after he recently underwent Left cervical exploration, mobilization of the cervical esophagus, and 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 No diverticulum was able to be identified. Esophagram was performed the following day and showed the location of the zenker's diverticulum to be superior to the dissection plane. The decision was then made to reexplore the neck. The patient was brought back to the operting room on 07/31 and underwent cervical reexploration, esophageal diverticulectomy, and esophogeal myotomy. He was discharged home on 08/02/2022 in good condition. Since discharge he has been complaining of dysphagia with a 1-2lb weight loss. However, over the last week the patient's dysphagia has been improving. He has been able to tolerate a soft solid diet getting approx. 3643-2645 calories/day. He has been tolerating peanut butter sandwiches, oatmeal, liquids, and salmon patties. He has since re-gained the 2lbs he initially lost. He is now complaining of excessive secretions and sputum. He does note his voice is hoarse and changes in pitch/tone frequently. He denies reflux of foods, coking, coughing, fever, chills, SOB. PAST MEDICAL HISTORY 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 Chronic constipation 12/03/2020 Compression fracture of third lumbar vertebra (HCC) 11/05/2019 Degenerative lumbar spinal stenosis 12/15/2020 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/28/2017 Elevated blood sugar 08/31/2021 Episodic cluster headache, not intractable 09/09/2015 Essential hypertension, benign Family history of malignant neoplasm of gastrointestinal tract GERD (gastroesophageal reflux disease) 03/25/2009 History of compression fracture of spine 11/05/2019 Hypercalciuria, idiopathic 02/11/2020 Hypertrophy of prostate without urinary obstruction and other lower urinary tract symptoms (LUTS) Ilioinguinal neuralgia of left side 09/27/2019 Internal hemorrhoids without mention of complication Lumbar degenerative disc disease 09/14/2012 Lumbar radiculopathy 07/03/2020 Medicare annual wellness visit, subsequent 09/10/2021 Medicare Part B: Not able to find Last done: 09/10/2021 Nephrolithiasis 07/04/2007 Osteoporosis 01/28/2020 Other specified anemias 03/16/2022 Acute blood loss 11/2020 (post surgery) Primary osteoarthritis of both first carpometacarpal joints 05/04/2018 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 09/09/2015 Rosacea 09/09/2015 S/P lumbar spinal fusion 12/15/2020 Sepsis due to Gram-negative organism with septic shock ([facility]) 12/17/2020 Proteus mirabilis UTI Situational anxiety 06/27/2019 Situational depression 02/27/2021 Spondylosis of lumbar region without myelopathy or radiculopathy 03/10/2018 Thyroid nodule 12/03/[address] 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 LAP, REVISION DEMETRIO FUNDOPLASTY 03/11/2009 hiatal hernia LAPAROSCOPY SURG CHOLECYSTECTOMY 03/11/2009 LITHOTRIPSY XTRCORP SHOCK WAVE 1982,12/07/2006, 2011 NEPHROLITHOTOMY REMOVAL STAGE 1 Right 11/28/2006, 2011 (R) ureteroscopic OPEN REPAIR OF ROTATOR CUFF ACUTE Right 12/06/2002 OPEN REPAIR OF ROTATOR CUFF ACUTE Left 08/26/2004 PERIPHERAL NERVE BLOCK (MOD 59) Bilateral 11/01/2016, 03/28/2018 bilateral lumbar facet medial branch nerve block (l4-5, L5-S1) REMOVAL OF HEMORRHOID CLOT 06/2017 SPINAL FUSION,ANT,EA ADNL LEVEL 2001 TONSILLECTOMY HX Childhood XCAPSL CTRC RMVL INSJ IO LENS PROSTH W/O ECP Bilateral 08/25/2016 FAMILY HISTORY FAMILY HISTORY Problem Relation Age of Onset Cancer Mother lung Cancer Father colon Cancer Brother lymphoma SOCIAL HISTORY Social History Tobacco Use Smoking status: Former Types: Cigarettes Quit date: 06/24/1963 Years since quittin.2 Smokeless tobac (more content not included)... Normal [employer] Magnesium SerPl-mCncon 08-26 Magnesium [Mass/Vol] 2.1 mg/dL Normal 1.7-2.3 [facility] Comment on above: Order Comment: Speci men Type: BLOOD SPECIMEN Ordering Facility: [facility] Address: [facility] [place] [address] Performed By: #### 2 4321-2, 80011-1 #### [facility] CLIA [id number] [address] [place] [address] [place] NURSING PROGon 08-26-2022 NURSING PROG HNO ID: [id number] Author: Elle Grissom RN Service: ? Author Type: Registered Nurse Type: Nursing Progress Note Filed: 08/26/2022 4:46 PM Note Text: Daily Note: Patient alert and oriented. Spouse is at bedside. Patient complains of difficulty swallowing and inability to keep water down. Pt frequently clears throat after thin liquids and has in increase in sputum. Lungs sounds clear and diminished. MD made aware. Orders obtained and initiated. Pt now made NPO. Pt and pt's updated on POC and verbalized understanding. Call light within reach and bed is low and locked. [facility] NURSING PROG HNO ID: [id number] Author: Khloe Marcos RN Service: Nursing Author Type: Registered Nurse Type: Nursing Progress Note Filed: 08/25/2022 11:38 PM Note Text: Pt AOx3, VSS. at bedside. Pt came in with difficulty swallowing. States he has had multiple swallowing studies done, and has been advancing his diet per his doctor out patient. Speech/nutrition consulted. CXR completed. Up with x1 assist/walker. No further needs at this time. Safety precautions maintained. [facility] NUTRITIONon 08-26-2022 NUTRITION HNO ID: [id number] Author: Deena Ha RD Service: Nutrition Therapy Author Type: Registered Dietitian Type: Nutrition Filed: 08/26/2022 1:28 PM Note Text: NUTRITION THERAPY INITIAL ASSESSMENT SERVICE DATE: 08/26/2022 SERVICE TIME: 1:23 PM Nutrition Assessment: Recommended Malnutrition Diagnosis: Moderate Protein-Calorie Malnutrition In the context of: Chronic Illness or Injury Based on: Muscle Loss;Subcutaneous Fat Loss Nutrition Diagnosis: Problem: Swallowing difficulty Related to: Mechanical cause As evidenced by: Patient/family self-report;Medical condition Estimated kilocalorie needs: 7095-1113 Calorie Calculation Method: 25-30 kcals/kg Estimated protein needs (grams): 89-111 Grams protein determined by: 1.2 - 1.5 g/kg Care Plan: Change diet to regular with texture per Speech Supplements: Ensure Enlive Refer to: Speech/Language Monitor and Evaluation: Meet greater than 75% of estimated needs;Monitor bowel function;Monitor fluid/electrolyte balance;Monitor labs, I/Os, vital signs, weight I have confirmed and edited as necessary the HPI obtained by PHYLLIS Conley on 08/26/22 and all reflect current status. HPI: Javier Bond is a 81 year old male with pmhx of HTN, BPH, and GERD re-admitted complaining of excessive secretions after he recently underwent Left cervical exploration, mobilization of the cervical esophagus, and 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 No diverticulum was able to be identified. Esophagram was performed the following day and showed the location of the zenker's diverticulum to be superior to the dissection plane. The decision was then made to reexplore the neck. The patient was brought back to the operting room on 07/31 and underwent cervical reexploration, esophageal diverticulectomy, and esophogeal myotomy. He was discharged home on 08/02/2022 in good condition. Since discharge he has been complaining of dysphagia with a 1-2lb weight loss. However, over the last week the patient's dysphagia has been improving. He has been able to tolerate a soft solid diet getting approx. 7919-3576 calories/day. He has been tolerating peanut butter sandwiches, oatmeal, liquids, and salmon patties. He has since re-gained the 2lbs he initially lost. He is now complaining of excessive secretions and sputum. He does note his voice is hoarse and changes in pitch/tone frequently. He denies reflux of foods, coking, coughing, fever, chills, SOB. Intake History: Nutrition Intake Prior to Admission: Greater than 75% estimated energy needs greater than or equal to 5 days Current Nutrition Intake: NPO Current Intake Over time: (1 day) Had a thorough discussion with pt and . Wasn't eating well a few weeks ago when limited to a liquid diet s/p Demetrio. Started drinking supplements at home and now diet advanced and tolerating GI soft diet. Complaining of increased secretions and difficulty swallowing. Will await swallow eval before trying to determine if enteral nutrition is needed. They are not keen on a TF but need some answers prior to deciding. Will monitor. Diet Orders (From admission, onward) Start Ordered 08/26/22 0815 DIET NPO START NOW 08/26/22 0807 Anthropometrics: Height: 175.3 cm (5' 9") Weight: 74 kg (163 lb 3.2 oz) Dosing Weight: 73.9 kg (163 lb) Usual Weight: 74.8 kg (165 lb) 1 month ago Usual Weight Obtained From: Family/Caregiver Body mass index is 24.1 kg/m?. Normal Weight change percentage over time: down a couple lbs x past month. denies pt was in 170's last month Physical Exam: Subcutaneous fat loss: Moderate Muscle loss: Severe Potential micronutrient deficiency: No deficiency identified Edema/Ascites: No edema GI Symptoms: Swallowing problems Functional Status: Unable to assess Potential Signs of Inflammation: Chronic condition;Acute post-operative dysphagia MNT Billing: $ Initial Assessment: 1-15 minutes SIGNATURE: Deena Ha, MS,RD,LD PATIENT NAME: Javier Bond DATE: August 26, 2022 TIME: 1:23 PM [facility] SARS-CoV-2 RNA Resp Ql JACOB+p robeon 08-26-2022 SARS-CoV-2 (COVID-19) RNA JACOB+probe Ql (Resp) COVID 19 RESULT: SARS-CoV-2 (Agent of COVID-19) Not Detected by RT-PCR or equivalent method. This test has been authorized by FDA under an Emergency Use Authorization (EUA). [facility] Comment on above: Performed By: #### 9 4500-6 ####[facility] [id number] [address] THERAPY NTon 08-26-2022 THERAPY NT HNO ID: [id number] Author: Clara Field CCC-FILM CREW MEMBER Service: Speech/Swallow Author Type: Speech Language Pathologist Type: Therapy (PT/OT/Speech/Resp) Filed: 08/26/2022 4:52 PM Note Text: Speech Therapy Clinical Swallow Evaluation SERVICE DATE: 08/26/2022 SERVICE TIME: 1404 to 1450 ROOM: [address] [address] IMPRESSION: Swallow Deficits Identified / Suspected: Oropharyngeal dysphagia, Concern for possible esophageal impairment Diet Recommendations: NPO with alternative means of nutrition/hydration/me dication Nursing Recommendations: Ask patient preferences/routine;Bl inds open during day Instrumental Swallow Assessment Recommendations: Modified Barium Swallow Study (MBSS) Recommended Discharge Disposition: Unable to determine Reason for Hospital Admission: dysphagia Reason for Speech Therapy Consult: difficulty swallowing, dysphagia assessment Relevant Past Medical History: depression,anxiety, HTN, GERD, lumbar spondylosis,s/p lumbar fusion, compression fxs of spine, dysphagia, esophageal diverticulum, s/p R cricopharyngeal myotomy and diverticulectomy (07/29/22) Response to Therapy Interventions: Aspiration Risk, Confusion interferes with education, Good Participation in activities, Receptive Family / Caregivers, Requires additional time / repetition Continue skilled FILM CREW MEMBER services due to : Dysphagia, Education / training needs, Safety concerns Speech Therapy Problem List: Dysphagia Patient Report: "i have to clear my throat and spit out this phlegm" Current Status Oral Hygiene: Excess secretions noted in oropharynx Dentition: Retains Natural Dentition Current Feeding Method: Oral Current Diet Textures: Soft and Bite-Sized IDDSI Level 6;Moderately Thick Liquids IDDSI Level 3 (Honey Thick) Current Level Of Communication: Verbal Current Management Of Secretions: Suspect poor management of pharyngeal secretions;Able to complete volitional cough;Able to complete volitional swallow;Able to expectorate adequately Oral Motor Exam: Within Functional Limits Swallow Position Of Patient During Assessment: Unsupported Sitting Consistencies Presented: Moderately Thick Liquids IDDSI Level 3 (Honey Thick), Pureed IDDSI Level 4, Soft and Bite-Sized IDDSI Level 6 Response to Consistencies Presented: throat clear, expectoration after every trial Compensatory Strategies Utilized During Assessment: Voice checks Previous Swallow Study: [facility] (12/24/20) Clinical Swallow [place] Swallow Protocol: Fail Fail: Patient stopping prior to completion Oral Pharyngeal Swallow Assessment: Within Functional Limits Except Preparatory / Oral Phase: Within Functional Limits Except Mastication: Suspect impairment Bolus Manipulation: Suspect impairment Oral Residue: Mildly Impaired Pharyngeal Phase: Within Functional Limits Except Initiation of Swallow: Suspect impairment Range of Hyoid/Laryngeal Elevation: Suspect impairment Reflexive Throat Clear and Cough after Swallowing: Yes, Pre-Swallow, Post-Swallow Multiple Swallows: Yes Suspected Esophageal Deficits: yes This patient was seen for a dysphagia assessment following admission for dysphagia. The patient is s/p L cervical reexploration with resultant myotomy and diverticulectomy 07/29/22. The patient was seen on 08/17 for an esophagram due to difficulty swallowing. Patient aspirated during esophagram. Patient presented this date due to increased difficulty swallowing with liquids and managing his saliva. Patient had been placed on a soft diet with moderately thick liquids prior to this assessment. 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 Results are as follows: Excessive saliva/phlegm noted in oral cavity with frequent expectorations into a cup. Reduced oral skills of bolus formation and control, significantly extended mastication of cooked carrots Expectorating solids and liquids into the cup Cough/throat clear with all trials Additional trials discontinued due to increased risk of aspiration Extensive education provided regarding recommendations, reasons for recommendations, signs/symptoms of dysphagia. verbalized frustration due to this tray being patient's first allowance of food/liquid since admission last night. Patient verbalized comprehension of recommendation for NPO, but upset that he has to wait until tomorrow for completion of the MBSS. Further recommendations pending results of the MBSS. Patient /Caregiver Goals: PO Intake for Pleasure Goals for Plan of Care: Goals: SWALLOWING: Patient / Caregiver will demonstrate knowledge of taught compensatory strategies and dietary consistency recommendations to optimize functional swallow function without overt clinical signs and symptoms of aspiration or dysphagia Speech Rehab Potential: Fair Patient will be discontinued from speech therapy when no further skilled needs are identified in this setting. PLAN: ST Frequency: 3 times per we (more content not included)... [facility] XR CHEST 1V FRONTAL PORTon 1 10-27-2021 XR CHEST 1V FRONTAL PORT * * *Final Repo rt* * * DATE OF EXAM: Aug 25 2022 10:52PM FVX [id number] - XR CHEST 1V FRONTAL PORT / PROCEDURE REASON: Cough, new onset * * * * Physician Interpretation * * * * FRONTAL CHEST RADIOGRAPH HISTORY: Cough, new onset. TECHNIQUE: Frontal view of the chest was obtained. COMPARISON: 07/31/2022 RESULT: Cardiomediastinal silhouette is normal. No consolidative opacity. No pleural effusion or pneumothorax. Pulmonary vasculature is unremarkable. IMPRESSION: No acute cardiopulmonary process. 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: PSCB Transcribe Date/Time: Aug 26 2022 4:13P Dictated by : CICI SANCHEZ MD This examination was interpreted and the report reviewed and electronically signed by: CICI SANCHEZ MD on Aug 26 2022 4:15PM EST [id number] [facility] NURSING PROGon 08-25-2022 NURSING PROG HNO ID: [id number] Author: Khloe Marcos, RN Service: Nursing Author Type: Registered Nurse Type: Nursing Progress Note Filed: 08/25/2022 9:38 PM Note Text: Transfer Note: Patient transferred into room/unit PKT34, direct admit. in stable condition. Actions taken: Oriented to room, call light within reach. Will continue to monitor and check with patient. Normal [employer] UA DIP, URINE (POC)on 2021 BILIRUBIN UA (POCT) Negative Negative Iam [facility] CLARITY UA (POCT) Slightly Cloudy Cl [facility] COLOR UA (POCT) Dark yellow [facility] GLUCOSE UA (POCT) Negative Negative mg/dL [facility] HEMOGLOBIN/BLOOD UA (POCT) Moderate Abnormal Negative [facility] KETONE UA (POCT) 15 mg/dL Abnormal Negative mg/dL [facility] LEUKOCYTES UA (POCT) Small Abnormal Negative [facility] NITRITE UA (POCT) Negative Negative [facility] PH UA (POCT) 5.5 4.5 - 8.0 [facility] Protein Ql (U) 30 mg/dL Abnormal Negative mg/dL [facility] SPECIFIC GRAVITY UA (POCT) 1.015 1.005 - 1.030 [facility] UROBILINOGEN UA (POCT) 1.0 E.U./dL [place] [facility] E.U./dL [facility] XR ESOPHAGRAMon 08-17-2022 XR ESOPHAGRAM * * *Final Report* * * DATE OF EXAM: Aug 17 2022 10:13AM JOCELYN [id number] - XR ESOPHAGRAM / PROCEDURE REASON: Dysphagia, unspecified type * * * * Physician Interpretation * * * * EXAMINATION: XR ESOPHAGRAM CLINICAL INFORMATION: 81 years old Male with Dysphagia, unspecified type. Review of electronic medical record states: Status post Zenker's diverticulectomy and esophagomyotomy 07/29/2022. Presenting with persistent dysphasia. TECHNIQUE: Patient ingested a few sips of water-soluble contrast under intermittent fluoroscopic monitoring. Contrast: ORAL: 20 ml of OMNIPAQUE 300 Fluoroscopy radiation summary: Fluoroscopy time: 0:48 (min:sec). Air kerma: 1.8 mGy. RESULT: Initially patient was placed in a prone DUDLEY position. Patient ingested few sips of contrast which demonstrated aspiration. Adequate distention of the esophagus could not be obtained limiting evaluation. Patient could not tolerate further ingestion of contrast. Patient was then placed in a standing lateral position. Patient ingested few sips of contrast which again demonstrated aspiration. Adequate distention of the esophagus could not be obtained limiting evaluation. Patient could not tolerate further ingestion of contrast. No leak identified within constraints of this limited exam. IMPRESSION: Limited exam as patient could not tolerate more than a few sips of contrast. Aspiration present. 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: BRIAN Transcribe Date/Time: Aug 17 2022 1:00P Dictated by : SRINIVASA BLOOM DO This examination was interpreted and the report reviewed and electronically signed by: SRINIVASA BLOOM DO on Aug 17 2022 1:15PM EST [id number] [facility] Absolute lymphocyte counton 08-16-2022 Lymphocytes Auto (Unsp spec) [#/Vol] 0.84 10*3/uL 0.83-4.51 [facility] Work Phone: Basophil percentageon 2021 Basophil percentage >100 SEEN /hpf 0-5 [facility] Work Phone: Basophils/100 WBC (Bld) 0.2 % 0-1 [facility] Work Phone: Chloride [Moles/Vol] 99 mmol/L 98-107 [facility] Work Phone: Eosinophils/100 WBC (Bld) 0.5 % 0-5 [facility] Work Phone: Glucose [Mass/Vol] 93 mg/dL 74-106 [facility] Work Phone: Neutrophils (Bld) [#/Vol] 4.8 10*3/uL 2.0-7.7 [facility] Work Phone: Neutrophils/100 WBC (Bld) 84.1 % 47-70 [facility] Work Phone: Potassium [Moles/Vol] 3.2 mmol/L 3.5-5.1 [facility] Work Phone: Sodium [Moles/Vol] 139 mmol/L 136-145 [facility] Work Phone: WBC (Bld) [#/Vol] 5.8 10*3/uL 4.4-11.0 [facility] Work Phone: Bilirubin Test strip Ql (U)o n 08-16-2022 Bilirubin Ql (U) Negative Negative [facility] Work Phone: Blood erythrocytes count (nu mber/volume)on 08-16-2022 RBC (Bld) [#/Vol] 4.02 10*6/uL 4.6-6.2 [facility] Work Phone: Blood hemoglobin measurement (mass/volume)on 08-16-2022 Hemoglobin (Bld) [Mass/Vol] 12.2 g/dL 13.0-16.5 [facility] Work Phone: Blood lymphocytes/100 leukoc yteson 08-16-2022 Lymphocytes/100 WBC (Bld) 14.6 % 19-41 [facility] Work Phone: Blood monocytes/100 leukocyt eson 08-16-2022 Monocytes/100 WBC (Bld) 0.3 % 0-10 [facility] Work Phone: Blood platelet mean volumeon 08-16-2022 Platelet mean volume (Bld) [Entitic vol] 9.7 fL 6.2-12.0 [facility] Work Phone: Determination of erythrocyte mean corpuscular volume (MCV)on 08-16-2022 MCV (RBC) [Entitic vol] 92.8 fL 80-94 [facility] Work Phone: Hematocrit Auto (Bld) [Volum e fraction]on 08-16-2022 Hematocrit (Bld) [Volume fraction] 37.3 % 40-54 [facility] Work Phone: Ketones Test strip Ql (U)on 08-16-2022 Ketones Ql (U) 5 mg/dl Negative [facility] Work Phone: Laboratory - Chemistry and C hemistry - challengeon 08-16-2022 CO2 [Moles/Vol] 32.0 mmol/L 21.0-32.0 [facility] Work Phone: Urea nitrogen/Creatinine [Mass ratio] 34.0 mg/mg 10-20 [facility] Work Phone: Laboratory - Hematology and Cell countson 08-16-2022 Erythrocyte distribution width (RBC) [Entitic vol] 43.8 fL 35.1-43.9 [facility] Work Phone: Erythrocyte distribution width (RBC) [Ratio] 12.8 % 11.6-14.6 [facility] Work Phone: Immature granulocytes/100 WBC (Bld) 0.300 % 0.0-0.9 [facility] Work Phone: Comment on above: IG% - Immature Granu locytes (promyelocytes, myelocytes and metamyelocytes) > 1% indicates that a LEFT SHIFT is Present. MCH (RBC) [Entitic mass] 30.3 pg 27.0-32.0 [facility] Work Phone: Nucleated RBC/100 WBC (Bld) [Ratio] 0 % 0-5 [facility] Work Phone: MCHC Auto (RBC) [Mass/Vol]on 08-16-2022 MCHC (RBC) [Mass/Vol] 32.7 g/dL 32-36 [facility] Work Phone: Mucus LM Ql (Urine sed)on Mucus Ql (Urine sed) 0 SEEN /hpf [facility] Work Phone: Nitrite Test strip Ql (U)on 08-16-2022 Nitrite Ql (U) Positive Negative [facility] Work Phone: No Panel Informationon 08-16 Estimated Creatinine Clearance Calc 63.41 ml/min [facility] Work Phone: Estimated GFR (MDRD) Amer 93 mL/min >60 [facility] Work Phone: Comment on above: GFR Calc Estimated GFR (MDRD) Non-Af Amer 77 mL/min >60 [facility] Work Phone: Comment on above: Non- GFR Calc Platelets bldon 08-16-2022 Platelets (Bld) [#/Vol] 264 10*3/uL 150-450 [facility] Work Phone: Protein Test strip Ql (U)on 08-16-2022 Protein Ql (U) 15 mg/dl Negative [facility] Work Phone: Serum or plasma calcium shon urement (mass/volume)on 08-16-2022 Calcium [Mass/Vol] 9.4 mg/dL 8.5-10.1 [facility] Work Phone: Serum or plasma creatinine m easurement (mass/volume)on 08-16-2022 Creatinine [Mass/Vol] 1.00 mg/dL 0.70-1.30 [facility] Work Phone: Comment on above: The validity of the calculated GFR & GFRAA in patients over 70 years has not been determined. Clinical correlation is essential. Serum or plasma urea nitroge n measurement (mass/volume)on 08-16-2022 Urea nitrogen [Mass/Vol] 34 mg/dL 7-18 [facility] Work Phone: Squamous epithelial cells de tection in urine sediment by light microscopyon 08-16-2022 Epithelial cells.squamous LM Ql (Urine sed) 0 SEEN /hpf 0-5 [facility] Work Phone: Thin prep Papanicolaou smear with manual screeningon 08-16-2022 Thin prep Papanicolaou smear with manual screening 8 5-15 [facility] Work Phone: Urine blood detectionon 07-28 RBC Ql (U) 25 /ul Negative [facility] Work Phone: RBC Ql (U) 0-5 SEEN /hpf 0-5 [facility] Work Phone: Urine clarityon 08-16-2022 Clarity (U) Sl. Cloudy Clear [facility] Work Phone: Urine color determinationon 08-16-2022 Color (U) Yellow Yellow [facility] Work Phone: Urine glucose detectionon Glucose Ql (U) Normal mg/dl Normal [facility] Work Phone: Urine leukocyte esterase det ection by dipstickon 08-16-2022 Leukocyte esterase Test strip Ql (U) 500 /ul Negative [facility] Work Phone: Urine pHon 08-16-2022 pH (U) 6.0 [pH] 5.0 - 8.0 [facility] Work Phone: Urine sediment bacteria coun t by microscopy (number/high power field)on 08-16-2022 Bacteria LM.HPF (Urine sed) [#/Area] 2 /[HPF] None Seen [facility] Work Phone: Urine sediment yeast count b y microscopy (number/high powered field)on 08-16-2022 Yeast LM.HPF (Urine sed) [#/Area] RARE /hpf None Seen [facility] Work Phone: Urine specific gravity measu rementon 08-16-2022 Specific gravity (U) [Rel density] 1.015 1.002-1.030 [facility] Work Phone: Urobilinogen Auto test strip Ql (U)on 08-16-2022 Urobilinogen Ql (U) Normal mg/dl Normal [facility] Work Phone: Genoveva 08-05-2022 CNPN Telephone (FVTHOR) JAVIER BOND ([id number]) 1940 M NFR Date Time Provider Department 08/05/22 SOFIA WILDELEWIS During your visit today, we recorded the following information about you: Patience Martin RN 08/05/2022 9:52 AM Signed Left message for patient to return call for post op discharge update. Patience Martin RN August 05, 2022 9:52 AM Allergies As of Date: 08/05/2022 Noted Allergy Reaction CONTRAST DYE 03/24/2009 4 - Hives FINACEA (AZELAIC ACID) 09/28/2017 2 - Rash BACTRIM (SULFAMETHOXAZOLE-TRIM ETH*06/02/2005 16 - Unknown BEXTRA (VALDECOXIB) 06/02/2005 16 - Unknown CARDURA (DOXAZOSIN MESYLATE) 06/02/2005 16 - Unknown CIPROFLOXACIN 11/30/2002 16 - Unknown CYTOTEC (MISOPROSTOL) 06/02/2005 16 - Unknown FOSAMAX (ALENDRONATE SODIUM) 01/04/2020 11 - Vomiting Comments: heartburn, vomiting GABAPENTIN 01/28/2021 1 - Mental Status Change KEFLEX (CEPHALEXIN) 08/13/2013 2 - Rash KETOCONAZOLE 09/06/2008 16 - Unknown LEVOFLOXACIN 01/26/2012 14 - Other: See Comments Comments: Pseudomonas MOBIC (MELOXICAM) 06/02/2005 16 - Unknown NITROFURANTOIN 05/15/2021 14 - Other: See Comments Comments: Per , he didn't feel well - unsure of reaction NSAIDS (NON-STEROIDAL ANTI-INFLAM*11/30/2002 16 - Unknown Comments: GI UPSET RELAFEN (NABUMETONE) 06/02/2005 16 - Unknown TERBINAFINE 10/02/2009 8 - GI Upset Date Reviewed: 08/02/2022 Reviewed by: Eileen Franco RN - Fully Assessed Reason for Visit: Patient Update [1234] Cmt: postop discharge update call Prescriptions as of 08/05/2022 - oxyCODONE (ROXICODONE) 5 mg/5 mL oral solution Take 5 mL by mouth every 6 hours as needed for up to 7 days. - traZODone (DESYREL) 50 mg tablet Take 0.5 tablets by mouth daily at bedtime. - triamcinolone acetonide (KENALOG) 0.1 % cream Apply to affected areas (rosacea) as directed by provider - Docusate Sodium 250 mg capsule Take 250 mg by mouth twice daily. - atorvastatin (LIPITOR) 10 mg tablet Take 1 tablet by mouth daily at bedtime. For cholesterol. - pantoprazole DR (PROTONIX) 40 mg tablet Take 40 mg by mouth once daily. - hydroCHLOROthiazide (HYDRODIURIL, ESIDRIX) 12.5 mg tablet Take 1 tablet by mouth once daily. - furosemide (LASIX) 20 mg tablet Take 1 tablet by mouth once daily. - tamsulosin (FLOMAX) 0.4 mg Take 1 capsule by mouth once daily. - quinapril (ACCUPRIL) 5 mg tablet Take 1 tablet by mouth once daily. - doxycycline 20 mg tablet Take 20 mg by mouth twice daily. - finasteride (PROSCAR) 5 mg tablet Take 1 tablet by mouth once daily. - multivit-min/iron/foli c acid/K (ADULTS MULTIVITAMIN ORAL) Take 1 tablet by mouth once daily. - lactobacillus combination no.8 (ADULT PROBIOTIC ORAL) Take 1 capsule by mouth once daily. - MEDICAL SUPPLY KAFO for right lower extremity. - acetaminophen (TYLENOL) 500 mg tablet Take 2 tablets by mouth every 8 hours as needed for Pain or Fever. - aspirin 81 mg chewable tablet Take 1 tablet by mouth once daily. - melatonin 3 mg tablet Take 1 tablet by mouth daily at bedtime. - calcium carbonate 600 mg-cholecalciferol 400 units (CALCIUM 600 + D) 600 mg(1,500mg) -400 unit tab Take 1 tablet by mouth twice daily. - metroNIDAZOLE 0.75 % cream Apply 1 application to affected area twice daily. Apply to areas of rosacea on the face Facility-Administered Medications as of 08/05/2022 - perflutren lipid microspheres 1.3 mL in NaCl (PF) 0.9% 10 mL injection (DEFINITY) - sodium chloride 0.9 % (flush) 10 mL (BD POSIFLUSH) Meds Comments as of 08/04/2022: 08/04/22 The medications are managed by this patient by: PATIENT and SPOUSE Dorothy Stuart, [facility] Problem List As Of Date 08/05/2022 Noted Resolved Complete rupture of rotator cuff [M75.120] 11/30/2002 09/05/2014 Essential hypertension, benign [I10] Family history of malignant neoplasm of gastroi* PERS HX SKIN MALIGNANCY NEC [Z85.828] 08/15/2006 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, N13.8] 07/04/2007 Nephrolithiasis [N20.0] 07/04/2007 Duodenitis without mention of hemorrhage [K29.8*12/26/2008 09/05/2014 Acute gastritis without mention of hemorrhage [*12/26/2008 09/05/2014 Prostatocystitis [N41.3] 03/24/2009 08/13/2013 GERD (gastroesophageal reflux disease) [K21.9] 03/25/2009 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 [facility] 08-02-2022 ALLIED HEALTH HNO ID: [id number] Author: RT Theresa(Aris) Service: Radiology Author Type: Technologist Type: Allied Health Filed: 08/02/2022 10:39 AM Note Text: Radiology Service Progress Note PATIENT NAME: Javier Bond DATE OF SERVICE: August 02, 2022 TIME: 10:38 AM PATIENT IDENTITY VERIFICATION COMPLETED USING TWO (2) IDENTIFIERS: Name and Date of confirmed by patient verbally and Name and Date of confirmed by identification band. FALL SCREENING: Has the patient had 2 falls in the last year or 1 fall with injury or currently using an Ambulatory Assistive Device (Walker, Cane, Wheelchair, Crutches, etc.)? Inpatient: Screened on floor PATIENT GENDER DATA: Male PATIENT RELEVANT IMPLANT DATA REVIEWED: Not Applicable RADIOLOGY DEPARTMENT: General X-ray: Exam(s) Completed: GI/ Procedure(s): Esophogram with water soluable contrast PERIPHERAL IV DATA: Not applicable SIGNED BY: RT Theresa(R) August 02, 2022 10:38 AM [facility] HNO ID: [id number] Author: Mikayla Cortez PA-C Service: Cardiac Surgery Author Type: Physician Cutter Finisher Type: Discharge Summary Filed: 08/03/2022 1:15 PM Note Text: Attestation signed by Sofia Wilde MD at 08/03/2022 1:37 PM Attending Note I have personally performed a face to face assessment of the patient and have reviewed the LUIS note. I performed a substantive portion of the visit including all aspects of the following. My douglas findings include: The patient's post-operative course has been remarkable for a re-do exploration to locate the Zenker's diverticulum and perform the planned diverticulectomy. The patient is doing well. All of the patient's tubes, lines and drains have been removed. The patient has good pain control with oral analgesics. The patient is ambulatory and independent. The patient is tolerating a liquid diet. This patient is stable for discharge to home. Other additions or changes: The patient has been given written discharge instructions. The patient has been encouraged to call for any changes, concerns or questions. I will see the patient in follow up in 4 weeks with a chest x-ray. Signature: Sofia Wilde MD Date: 08/03/2022 Time: 1:35 PM Department of Thoracic Surgery Discharge Summary (Template ID [id number]) PATIENT NAME: Javier Bond ADMISSION DATE: 07/29/2022 DISCHARGE DATE: 08/02/2022 Attending Physician: Sofia Wilde MD Code Status: Not on file Primary Service: Admission Diagnosis: Diverticulum Discharge Diagnosis: Diverticulectomy Reason for Hospitalization: Diverticulectomy Operations during Hospitalization: cervical reexploration, esophageal diverticulectomy, and esophogeal myotomy Hospital Course: * How was the Reason for Hospitalization Addressed: Javier Bond is a very pleasant 81-year old gentleman who has been diagnosed with a Zenker's diverticulum. The patient complains of regurgitation, constantly having to ' clear his throat ' and dysphagia. The patient also has a hiatal hernia. The patient had an upper GI/esophagram at an outside institution and is thought to have a small Zenker's Diverticulum. After completing standard preoperative testing, the pt underwent Left cervical exploration, mobilization of the cervical esophagus, and EGD on 07/29/22. No diverticulum was able to be identified. The superior and inferior borders of the dissection plane were marked with clips. The incision was closed. Pt was subsequently transferred to the PACU and then to the regular nursing floor for routine post operative care. Esophagram was performed the following day and showed the location of the zenker's diverticulum to be superior to the dissection plane. The decision was then made to reexplore the neck. The patient was brought back to the operting room on 07/31 and underwent cervical reexploration, esophageal diverticulectomy, and esophogeal myotomy. The patient has had an uncomplicated surgical course. A clear liquid diet was started on POD1 of the second operation. An esophagram was performed on POD2 (Tuesday) and no leak or diverticulum was identified. At the time of discharge, pain was well controlled on an oral pain regimen. The patient was breathing comfortably on room air and ambulating independently. He was tolerating a regular diet without nausea. Pt was voiding and had return of normal bowel function. The patient was educated on post operative activity restrictions, dietary guidelines, and pain management. He was discharged home on post operative day 2 in good condition and will follow up with the thoracic surgery clinic in four weeks. * What were the Active Issues: n/a * Hospital Course Complicated by: n/a * Extended Hospital Stay Due to: n/a * Specific Medication Changes: see MAR * Surgical Pathology/Microbiology : n/a * Pain: stable * Surgical Incisions/ Wounds: anterior neck incision * Tubes/Lines/Drains on Discharge: none * Patient Condition at Discharge: Stable * Disposition: Home with Self Care Problem List: Patient Active Hospital Problem List: Dysphagia (07/29/2022) Consults: None Procedures/Radiology: Barium esophagram: date: 08/02/2022 Information Provided to the Patient: Patient given copy of After Visit Summary which included activity instructions, diet instructions, wound care instructions, medication instructions and follow up appointment. ALLERGIES Allergen Reactions Contrast Dye Hives Finacea [Azelaic Ac* Rash Bactrim [Sulfametho* Unknown Bextra [Valdecoxib] Unknown Cardura [Doxazosin * Unknown Ciprofloxacin Unknown Cytotec [Misoprosto* Unknown Fosamax [Alendronat* Vomiting heartburn, vomiting Gabapentin Mental Status Change Keflex [Cephalexin] Rash Ketoconazole Unknown Levofloxac (more content not included)... [facility] PT EDon 08-02-2022 PT ED HNO ID: [id number] Author: Mary Lundberg [facility] Service: Pharmacy Author Type: Pharmacist Type: Patient Education Filed: 08/02/2022 2:29 PM Note Text: PHARMACY DISCHARGE MEDICATION COUNSELING PATIENT NAME: Javier Bond DATE of SERVICE: 08/02/2022 TIME of SERVICE: 2:10 PM The patient accepted medication counseling for the discharge medications below. The patient was given the opportunity to ask questions regarding medication indication, interactions and side effects. Education provided for the following new medications: Oxycodone Reviewed the following changes to STRANNER medications continued at discharge: N/A STRANNER medications discontinued at discharge: Bactrim (stop date 07/30/22, patient and state they will notify prescribing urologist) Discharge Medications: Current Discharge Medication List START taking these medications oxyCODONE (ROXICODONE) 5 mg Take 5 mg by mouth every 6 hours as needed. Qty: 140 mL Refills: 0 Associated Diagnoses:Post-op pain CONTINUE these medications which have CHANGED traZODone (DESYREL) 25 mg Take 25 mg by mouth daily at bedtime. CONTINUE these medications which have NOT CHANGED triamcinolone acetonide (KENALOG) 0.1 % cream Apply to affected areas (rosacea) as directed by provider Docusate Sodium 250 mg Take 250 mg by mouth twice daily. atorvastatin (LIPITOR) 10 mg Take 10 mg by mouth daily at bedtime. class="HTML_HHS"> For cholesterol. Qty: 30 tablet Refills: [address] (PROTONIX) 40 mg Take 40 mg by mouth once daily. hydroCHLOROthiazide (HYDRODIURIL, ESIDRIX) 12.5 mg Take 12.5 mg by mouth once daily. Qty: 30 tablet Refills: 2 Associated Diagnoses:Bilateral swelling of feet and ankles furosemide (LASIX) 20 mg Take 20 mg by mouth once daily. Qty: 90 tablet Refills: 1 Comments: Patient has lost his current bottle of lasix. Ok to fill early since this is needed. tamsulosin (FLOMAX) 0.4 mg Take 0.4 mg by mouth once daily. Qty: 90 capsule Refills: 1 quinapril (ACCUPRIL) 5 mg Take 5 mg by mouth once daily. Qty: 90 tablet Refills: 1 doxycycline 20 mg Take 20 mg by mouth twice daily. finasteride (PROSCAR) 5 mg Take 5 mg by mouth once daily. Qty: 90 tablet Refills: 3 multivit-min/iron/foli c acid/K (ADULTS MULTIVITAMIN ORAL) 1 tablet Take 1 tablet by mouth once daily. lactobacillus combination no.8 (ADULT PROBIOTIC ORAL) 1 capsule Take 1 capsule by mouth once daily. acetaminophen (TYLENOL) 1,000 mg Take 1,000 mg by mouth every 8 hours as needed for pain or fever (specify). aspirin 81 mg Take 81 mg by mouth once daily. melatonin 3 mg Take 3 mg by mouth daily at bedtime. calcium carbonate 600 mg-cholecalciferol 400 units 1 tablet Take 1 tablet by mouth twice daily. Associated Diagnoses:Hypercalciur ia, idiopathic metroNIDAZOLE 1 application Apply 1 application to affected area twice daily. Apply to areas of rosacea on the face MEDICAL SUPPLY KAFO for right lower extremity. Qty: 1 Device Refills: 1 Associated Diagnoses:Weakness of left lower extremity STOP taking these medications sulfamethoxazole-trime thoprim (BACTRIM DS,SEPTRA DS) 1 tablet Comments: Reason for Stopping: Patient verbalizes understanding of counseling. Mary Lundberg PharmD, [facility] Contact: 08/02/2022 2:11 PM [facility] XR ESOPHAGRAMon 08-02-2022 XR ESOPHAGRAM * * *Final Report* * * DATE OF EXAM: Aug 02 2022 10:41AM FVX [id number] - XR ESOPHAGRAM / PROCEDURE REASON: Esophageal perforation * * * * Physician Interpretation * * * * HISTORY: Esophageal perforation TECHNIQUE: XR ESOPHAGRAM Contrast: ORAL administration of 100 ml ml of OMNIPAQUE 350 Fluoroscopic Radiation Summary: Plane A, Air Kerma: 18.2 mGy Dose Area Product (DAP): Fluoro time: 0:42 min:sec COMPARISON: 07/30/2022 RESULT: No evidence of residual Zenker's diverticulum. No contrast leak. Stable small hiatal hernia. IMPRESSION: No contrast leak. 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: BRIAN Transcribe Date/Time: Aug 02 2022 10:55A Dictated by : NADIA VARGAS MD This examination was interpreted and the report reviewed and electronically signed by: NADIA VARGAS MD on Aug 02 2022 11:07AM EST [id number] [facility] ALLIED HEALTHon 07-31-2022 ALLIED HEALTH HNO ID: [id number] Author: RT Rene(Aris) Service: ? Author Type: Technologist Type: Allied Health Filed: 07/31/2022 12:34 PM Note Text: Radiology Service Progress Note PATIENT NAME: Javier Bond DATE OF SERVICE: July 31, 2022 TIME: 12:34 PM PATIENT IDENTITY VERIFICATION COMPLETED USING TWO (2) IDENTIFIERS: Name and Date of confirmed by patient verbally and Name and Date of confirmed by identification band. FALL SCREENING: Has the patient had 2 falls in the last year or 1 fall with injury or currently using an Ambulatory Assistive Device (Walker, Cane, Wheelchair, Crutches, etc.)? Inpatient: Screened on floor PATIENT GENDER DATA: Male PATIENT RELEVANT IMPLANT DATA REVIEWED: Not Applicable RADIOLOGY DEPARTMENT: General X-ray: Exam(s) Completed: Chest X-Ray PERIPHERAL IV DATA: Not applicable SIGNED BY: RT Rene(R) July 31, 2022 12:34 PM [facility] ANES POSTPROC EVALon 022 ANES POSTPROC EVAL HNO ID: [id number] Author: Shikha Coffman MD Service: Anesthesiology Author Type: Physician Type: Anesthesia Postprocedure Evaluation Filed: 07/31/2022 12:13 PM Note Text: POST ANESTHESIA EVALUATION NOTE : 1940 Procedure Summary Date: 07/31/22 Room / Location: OR / OR Anesthesia Start: 851 Anesthesia Stop: 1148 Procedure: DIVERTICULECTOMY HYPOPHARYNX OR ESOPHAGUS, CERVICAL APPROACH (Left: Neck) Diagnosis: Esophageal diverticulum (Esophageal diverticulum [Q39.6]) Surgeons: Sofia Wilde MD Responsible Provider: Shikha Coffman MD Anesthesia Type: general ASA Status: 3 Anesthesia Type: general Airway Type: ETT Last Vitals Vitals Value Taken Time BP 123/61 07/31/22 1200 Temp 36.4 ?C (97.5 ?F) 07/31/22 1142 Pulse 86 07/31/22 1213 Resp 10 07/31/22 1213 SpO2 96 % 07/31/22 1213 Vitals shown include unvalidated device data. Post Anesthesia Patient Status Patient Evaluation: PACU. PACU/ICU Patient Condition: stable. Anticipated Disposition: inpatient floor planned admission. Neurological Status: aware and responsive. Pulmonary Status: breathing comfortably on room air Airway Control: returned to baseline unsupported. Cardiovascular Status: stable. Pain Management: clinically adequate Postoperative Hydration: acceptable. Intraoperative Events: no significant anesthesia events Post Operative Nausea/Vomiting Status: no significant post operative nausea or vomiting Anesthetic Observations: Recommendation: continue current plan of care. Other Remarks: Dentition exam unchanged from preoperative assessment. Anesthesia Observations No Documentation SIGNATURE: Shikha Coffman MD PATIENT NAME: Javier Bond DATE: July 31, 2022 TIME: 12:13 PM CSN: [id number] [facility] ANES PRE-OPon 07-31-2022 ANES PRE-OP HNO ID: [id number] Author: Shikha Coffman MD Service: Anesthesiology Author Type: Physician Type: Anesthesia Preprocedure Evaluation Filed: 07/31/2022 8:30 AM Note Text: ANESTHESIOLOGY DAY OF SURGERY NOTE : 1940 Procedure Information Date/Time: 07/31/22729 Procedure: DIVERTICULECTOMY HYPOPHARYNX OR ESOPHAGUS, CERVICAL APPROACH (Left: Neck) - CERVICAL EXPLORATION, ESOPHAGEAL DIVERTICULECTOMY, ESOPHAGOMYOTOMY Location: [facility] OR06 / [facility] Surgeons: Sofia Wilde MD Estimated body mass index is 23.91 kg/m? as calculated from the following: Height as of 07/29/22: 180.3 cm (5' 11"). Weight as of 07/29/22: 77.7 kg (171 lb 6.4 oz). Most recent hematocrit and potassium results: HCT 38.5 07/09/2022 Hematocrit (POCT) 24 12/17/2020 Potassium 4.0 07/09/2022 Potassium (POCT) 3.7 12/17/2020 Relevant Problems CARDIO (+) Bilateral carotid artery stenosis (+) Essential hypertension, benign GI (+) GERD (gastroesophageal reflux disease) (+) Hiatal hernia -RENAL (+) Nephrolithiasis NEURO-PSYCH (+) Episodic cluster headache, not intractable (+) History of compression fracture of spine (+) Personal history of other malignant neoplasm of skin I - PHYSICAL EVALUATION AIRWAY Patient intubated: No. Tracheostomy tube not present Mallampati: II. TM distance: >3 FB. Neck ROM: full ROM without neurological symptoms. Mouth opening: adequate. Short neck: no. Thick neck: no DENTAL Dentures, upper: complete. Dentures, lower: partial. Additional exam findings: yes. CARDIOVASCULAR Normal cardiovascular observations. PULMONARY Normal pulmonary observations. Breath sounds clear to auscultation. II - ANESTHESIA PLAN ASA Score: 3 Anesthetic Plan: general Airway type: ETT The patient is not a current smoker. NPO Status: adequate Monitoring plan: standard ASA. Postoperative analgesic plan: multimodal analgesia. Informed Consent Anesthetic risks, benefits, alternatives, personnel and consent discussed: yes. Patient / Responsible Constitution Party agrees to proceed: yes Patient / Surrogate agrees to blood products: Yes DNR status not reviewed with patient and/or family prior to surgery. Significant changes in the patient condition since the History and Physical, not otherwise documented in primary service progress note: no. Potential Anesthesia issues that may suggest increased risk of complications or contraindication to planned procedure: none. Vitals Value Taken Time BP 138/64 11/05/22 0812 Pulse Resp 16 07/31/22811 Temp 36.9 ?C (98.4 ?F) 07/31/22811 SpO2 100 % 07/31/22811 Facility-Administered Medications as of 07/30/2022 Medication Dose Route Frequency - acetaminophen 1,000 mg tab(s) (TYLENOL) 1,000 mg ORAL Pre-Op Once - promethazine 12.5 mg tab(s) (PHENERGAN) 12.5 mg ORAL Pre-Op Once - lactated ringers iv infusion 30 mL/hr INTRAVENOUS CONTINUOUS - [MAR Hold due to Transfer] triamcinolone acetonide 0.1 % crea (KeNALog) TOPICAL BID - [MAR Hold due to Transfer] traZODone 25 mg tab(s) (DESYREL) 25 mg ORAL AT BEDTIME - [MAR Hold due to Transfer] oxyCODONE 5-10 mg oral liquid (ROXICODONE) 5-10 mg ORAL q 4 H PRN - [MAR Hold due to Transfer] lactated ringers iv infusion 75 mL/hr INTRAVENOUS CONTINUOUS - [MAR Hold due to Transfer] heparin 5,000 Units injection 5,000 Units SUBCUTANEOUS q 12 H - [MAR Hold due to Transfer] NaCl 0.9% iv flush bag 20 mL INTRAVENOUS PRN - [MAR Hold due to Transfer] sodium chloride 0.9 % (flush) 3-5 mL (BD POSIFLUSH) 3-5 mL INTRAVENOUS q 12 H - [MAR Hold due to Transfer] tamsulosin 0.4 mg cap(s) (FLOMAX) 0.4 mg ORAL AT BEDTIME No current outpatient medications on file as of 07/30/2022. I have interviewed and examined the patient. I have reviewed the medical record and/or the pre-anesthesia evaluation, pertinent labs, and test results. This contains updated information obtained within 48 hours of Surgery/Procedure. [facility] HISTORY PHYSICALon 2 HISTORY PHYSICAL HNO ID: [id number] Author: Mikayla Cortez PA-C Service: Cardiac Surgery Author Type: Physician Cutter Finisher Type: HANDP Filed: 07/31/2022 8:51 AM Note Text: UPDATED HISTORY AND PHYSICAL EXAMINATION SERVICE DATE: 07/31/2022 SERVICE TIME: 8:47 AM PHYSICAL EXAM MUST BE COMPLETED ON ADMISSION The History and Physical (completed in the past 30 days) has been reviewed and the patient has been examined. The contents accurately reflect the patient's condition with the following additions or revisions since the HANDP was completed. Examination indicates no changes. Sitting up in bed. NAD Afebrile, vital signs stable. Breathing comfortably on RA. CTAB Abd soft, NT, +BS Regular rate and rhythm, normal S1 and S2, no murmurs This HANDP can be found in the Electronic Medical Record dated 07/29. SIGNATURE: Mikayla Cortez PA-C PATIENT NAME: Javier Bond DATE: July 31, 2022 TIME: 8:47 AM [facility] OPERATIVE NOon 07-31-2022 OPERATIVE NO HNO ID: [id number] Author: Sofia Wilde MD Service: Thoracic Surgery Author Type: Physician Type: Operative Report Filed: 08/03/2022 8:29 AM Note Text: DATE: 07/31/22 NAME: JAVIER LIND MR# [id number] PREOPERATIVE DIAGNOSIS: Zenker's Diverticulum. POSTOPERATIVE DIAGNOSIS: SAME PROCEDURE PERFORMED: Re-do Left cervical exploration. Mobilization of the proximal cervical esophagus. EGD Zenker's diverticulectomy. Esophagomyotomy. SURGEON: Sofia Wilde Jr, M.D. RESIDENT SURGEON: None (there was no qualified resident to assist with this operation) TERMINAL MAKE UP OPERATOR: Mikayla Cortez PA-C ANESTHESIA: General endotracheal anesthesia. FINDINGS: Small, proximal Zenker's diverticulum. I was present for and performed the douglas and critical portions of the operation including: Re-do Left cervical exploration. Mobilization of the proximal cervical esophagus. EGD Zenker's diverticulectomy. Esophagomyotomy. INDICATIONS FOR OPERATION: Javier Bond is a very pleasant 81-year old gentleman who has been diagnosed with a Zenker's diverticulum. The patient complains of regurgitation, constantly having to ' clear his throat ' and dysphagia. The patient also has a hiatal hernia. The patient had an upper GI/esophagram at an outside institution and is thought to have a small Zenker's Diverticulum. He ws referred to discuss diverticulectomy and esophagomyotomy. On 07/29/22 the patient was taken to the operating room. He underwent left cervical exploration and EGD. The diverticulum could not be confirmed or identified. The patient underwent repeat esophagram that showed a small diverticulum in the proximal posterior esophagus. I personally reviewed all available diagnostic studies and documentation. I discussed management of this patient's Zenker's diverticulum. I discussed re-do left cervical neck exploration, diverticulectomy and esophagomyotomy. I did discuss the risks, options, benefits and alternatives in detail with the patient. The patient understands the risks and complications and would like to proceed. All of his questions were answered. The patient signed consent forms for operation. OPERATION AND FINDINGS: After informed consent, the patient was transported to the main operating room and placed supine on the operating table. A timeout was called verifying the correct patient, procedure, operative site, positioning, and the need for any special equipment. After the induction of satisfactory general endotracheal anesthesia, the patient was intubated with a single lumen endotracheal tube. The patient was placed supine on the operating room table. The patient's neck was extended and his head was supported on a head ring. The patient's arms were tucked and padded at the sides. The patient's neck, chest, and abdomen was prepped and draped in the usual sterile fashion. The patient's prior left cervical neck incision was re-opened with a #15 blade knife overlying the medial edge of the sternocleidomastoid on the left side of the patient's neck. The incision was exteded proximally for another 5 cm. The sutures holding the platsyma muscle were cut sharply. The sternocleidomastoid was retracted laterally. The avascular plane was developed between the sternocleidomastoid and the trachea. The carotid sheath was retracted laterally and the trachea and esophagus were retracted medially. Great care was taken avoid any pressure or injury to the recurrent laryngeal nerve. The cervical esophagus was identified. It was encricled with a 1/4 inch [place] drain. The avascular plane around the cervical esophagus was developed proximally to a point proximal to the thyroid cartilage. The cervical esophagus carefully identified. Once again, there was no diverticulum identified. Esophagogastroduodenos copy was performed. The esophagoscope was introduced through the patient's mouth. The flexible scope was advanced carefully passed the posterior oropharynx and into the proximal esophagus. The esophagus was examined for its entire length from the posterior oral pharnyx to the esophagogastric junction. There was a very small wide-mouthed diverticulum seen in the proximal posterior esophagus at 15 cm from the upper incisors. This area was marked in the surgical field. The small diverticulum was incorporated in a small adipose deposit on the posteiror surface of the proximal esophagus. The esophagoscope was removed without difficulty. The patient tolerated this portion of the operation well with no complications. The small, proximal diverticulum was carefully dissected with a right angled clamp and electrocautery. It was retracted laterally. A CovAmerican Board of Addiction Medicine (ABAM) Endo-VERONICA stapler loaded with a 45 mm lee stapling cartridge was used to perform a diverticulectomy to remove the diverticulum. The diverticulum was removed from the left neck wound and sent to pathology for analysis. The staple line (more content not included)... [facility] SURGICAL PATHOLOGYon CASE REPORT [facility] Comment on above: Order Comment: Manpreet macias Type: TISSUE SPECIMENOrdering Facility: [facility] Address: [address] [place] [address] Result Comment: Surg ical Pathology Report Case: [id number] Authorizing Provider: Sofia Wilde MD Collected: 07/31/2022 10:59 AM Ordering Location: [facility] Received: 08/02/2022 06:43 AM Operating Room Pathologist: Aiden Hobbs MD Specimen: ESOPHAGUS RESECTION, esophageal diverticulum Performed By: #### S ####[facility] [id number] [address] CLINICAL HISTORY [facility] Comment on above: Order Comment: Manpreet macias Type: TISSUE SPECIMENOrdering Facility: [facility] Address: [address] [place] [address] Result Comment: Pre- op diagnosis: Esophageal diverticulum [Q39.6] Performed By: #### S ####[facility]IA [id number] [address] FINAL DIAGNOSIS [facility] Comment on above: Order Comment: Manpreet macias Type: TISSUE SPECIMENOrdering Facility: [facility] Address: [address] [place] [address] Result Comment: "Eso phageal diverticulum", excision: - Fragments of benign fibroadipose and fibrovascular tissue. - Squamous mucosa is not identified. JEL 08/04/2022 Performed By: #### S ####[facility]CLIA [id number] [place] [id number] [place] FINAL PERFORMING LAB Normal [facility] Comment on above: Order Comment: Speci men Type: TISSUE SPECIMENOrdering Facility: [facility] Address: [address] [place] [address] Result Comment: Diag nostic interpretation performed at [facility], [address] [place] [address] CLIA# [id number] Panel Cutter: Bernardo Mazariegos M.D. Performed By: #### S ####[facility] [id number] [address] GROSS DESCRIPTION Normal [facility] Comment on above: Order Comment: Speci men Type: TISSUE SPECIMENOrdering Facility: [facility] Address: [address] [place] [address] Result Comment: A. E SOPHAGUS RESECTION Received in formalin designated "esophageal diverticulum" are two irregular segments of lee-brown soft tissue which measure 1.1 x 0.1 x 0.1 cm and 2.4 x 0.5 x 0.4 cm. The larger segment has a staple line present. Definitive mucosa is not grossly appreciated. Sectioning does not reveal any masses or nodules. The specimen is totally submitted minus the staple line as follows: A1 largest segment bisected, A2 remainder of specimen. BF August 02, 2022 10:11 AM Gross examination performed at [facility], [address] [place] [address] CLIA # [id number] Performed By: #### S ####[facility]ORYCLIA [id number] [place] [id number] [place] XR CHEST 1V FRONTALon 2021 XR CHEST 1V FRONTAL * * *Final Report* * * DATE OF EXAM: Jul 31 2022 12:32PM FVX 5290 - XR CHEST 1V FRONTAL / PROCEDURE REASON: Post-operative / post-procedure assessment, asymptomatic * * * * Physician Interpretation * * * * EXAMINATION: CHEST RADIOGRAPH (SINGLE VIEW AP OR PA) CLINICAL HISTORY: Post-operative / post-procedure assessment, asymptomatic.S/p diverticulectomy and esophageal myotomy. Evaluate for leak. MQ: XC1_5 Comparison: 07/29/2022. RESULT: Lines, tubes, and devices: None. Lungs and pleura: No consolidation. No lung mass. No pleural effusion. Cardiomediastinal silhouette: Normal cardiomediastinal silhouette. Other: No acute osseous pathology. IMPRESSION: No acute radiographic abnormality. 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: PSCB Transcribe Date/Time: Jul 31 2022 12:49P Dictated by : RADHA ANSARI MD This examination was interpreted and the report reviewed and electronically signed by: RADHA ANSARI MD on Jul 31 2022 12:50PM EST [id number] [facility] HNO ID: [id number] Author: RT Christian(R) Service: ? Author Type: Technologist Type: Allied Health Filed: 07/30/2022 4:06 PM Note Text: Radiology Service Progress Note PATIENT NAME: Javier Bond DATE OF SERVICE: July 30, 2022 TIME: 4:06 PM PATIENT IDENTITY VERIFICATION COMPLETED USING TWO (2) IDENTIFIERS: Name and Date of confirmed by patient verbally and Name and Date of confirmed by identification band. FALL SCREENING: Has the patient had 2 falls in the last year or 1 fall with injury or currently using an Ambulatory Assistive Device (Walker, Cane, Wheelchair, Crutches, etc.)? Inpatient: Screened on floor PATIENT GENDER DATA: Male PATIENT RELEVANT IMPLANT DATA REVIEWED: Not Applicable RADIOLOGY DEPARTMENT: General X-ray: Exam(s) Completed: Spine X-Ray(s): Cervical AP / LAT / OBL PERIPHERAL IV DATA: Not applicable SIGNED BY: RT Christian(R) July 30, 2022 4:06 PM [facility] HNO ID: [id number] Author: RT Marilou(R) Service: Radiology Author Type: Technologist Type: Allied Health Filed: 07/30/2022 9:09 AM Note Text: Radiology Service Progress Note PATIENT NAME: Javier Bond DATE OF SERVICE: July 30, 2022 TIME: 9:09 AM PATIENT IDENTITY VERIFICATION COMPLETED USING TWO (2) IDENTIFIERS: Name and Date of confirmed by patient verbally. FALL SCREENING: Has the patient had 2 falls in the last year or 1 fall with injury or currently using an Ambulatory Assistive Device (Walker, Cane, Wheelchair, Crutches, etc.)? Inpatient: Screened on floor PATIENT GENDER DATA: Male PATIENT RELEVANT IMPLANT DATA REVIEWED: Not Applicable RADIOLOGY DEPARTMENT: General X-ray: Exam(s) Completed: GI/ Procedure(s): Esophogram with water soluable contrast PERIPHERAL IV DATA: Not applicable SIGNED BY: RT Marilou(R) July 30, 2022 9:09 AM [facility] M[facility] INIT [place] [facility] [id number] Author: Nisa Stover RN Service: ? Author Type: Registered Nurse Type: Care Mgt Initial Assessment Filed: 07/30/2022 12:24 PM Note Text: CARE MANAGEMENT: ASSESSMENT AND DISCHARGE PLAN SERVICE DATE: July 30, 2022 SERVICE TIME: 11:00am PRIMARY CARE PHYSICIAN: Francisco Bahena MD Primary Contact: Extended Emergency Contact Information Primary Emergency Contact: Peter Spears Address: [address] [place] [address] Mobile Relation: Spouse Secondary Emergency Contact: RONDAYUMIKO Relation: Daughter ADMISSION STATUS: Observation Insurance Provider: [employer] PPO NEEDS PRIOR TO DISCHARGE Needs Prior to Discharge: To Be Determined POTENTIAL TRANSITION PLANS No Services Indicated;To Be Determined Based on clinical judgement, Care Management will address the following needs: No transitional/discharge planning needs at this time Patient's perception of need for this admission: "difficulty swallowing" ADVANCE DIRECTIVES Current Advance Directive: Health Care Power of Professor Of Violin;Living Will In Chart: No MS/BEHAVIOR Baseline Mental Status Prior to this Illness what was the patient's Baseline Mental Status?: Alert AND Oriented Prior to this illness, has anyone described the patient having any of the following behaviors?: Not Applicable Relationship of the informant to the patient:: Self READMISSION Last Discharge Date: 07/16/22 Is this Within the Past 30 days? 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 scores in the EMR?: No Any potential risks related to substance abuse and/or behavioral health?: No Based on clinical judgement, Care Management will address the following needs: No transitional/discharge planning needs at this time CAREGIVER ASSESSMENT Caregiver is ready, willing and able to meet the patient's needs as recommended by the inter-professional team:: No Caregiver needed MEDICAL Medical Needs: Two or more chronic diseases Health Issues Impacting Discharge Plan: (Esophageal diverticulum) Medication Adherance I am convinced of the importance of my prescription medication: 0 - Agree Completely I worry that my prescription medication will do more harm than good to me : 0 - Disagree Completely I feel financially burdened by my irv-dv-trntvl expenses for my prescription medication:: 0 - Disagree Completely Risk Score: 0 Patient is categorized as: Low risk < 2 SOCIAL Living Arrangements: Home Lives With: Spouse Financial Resources: Retired Contact Resources: Family Family Name/Phone: : Peter Lind [phone] Is Patient Psychosocially Complex?: No Contact Resources: Family Family Name/Phone: : Peter Lind [phone] Health Literacy How often do you need to have someone help you when you read instructions, pamphlets, or other written material from your doctor or pharmacy? : 1 - Never How confident are you filling out medical forms by yourself?: 1 - Extremely Food Insecurity: No Food Insecurity Worried About Running Out of Food in the Last Year: Never true Ran Out of Food in the Last Year: Never true Financial Resource Strain: Low Risk Difficulty of Paying Living Expenses: Not very hard Transportation Needs: No Transportation Needs Lack of Transportation (Medical): No Lack of Transportation (Non-Medical): No Housing Stability: Low Risk Unable to Pay for Housing in the Last Year: No Number of Places Lived in the Last Year: 1 Unstable Housing in the Last Year: No BEHAVIORAL/COGNITIVE Psychosocial Psychosocial Needs: None FUNCTIONAL Services/Needs//Equipm ent Does Patient Currently Receive Any Community Services or Home Care?: None Equipment Prior to Admission: Rollator Scooter;Cane Has the Patient Been in a Fci Facility in the Past 30 days?: No No medical discharge barriers identified at this time. No social discharge barriers identified at this time. No behavioral/cognitive discharge barriers identified at this time. No functional discharge barriers identified at this time. FREEDOM OF CHOICE EXPLAINED: [place] of Choice Given: Yes (denied) Are you interested in bedside delivery of your medications? No Is Patient Psychosocially Complex?: No ASSESSMENT AND PLAN: Patient pre (more content not included)... [facility] XR CERVICAL 4V AP/LAT/OBLon 07-30-2022 XR CERVICAL 4V AP/LAT/OBL * * *Final Report* * * DATE OF EXAM: Jul 30 2022 4:08PM FVX 5311 - XR CERVICAL 4V AP/LAT/OBL / PROCEDURE REASON: Post-operative / post-procedure assessment, asymptomatic * * * * Physician Interpretation * * * * EXAMINATION: XR CERVICAL 4V AP/LAT/OBL HISTORY: post op Post-operative / post-procedure assessment, asymptomatic. TECHNIQUE: XR CERVICAL 4V AP/LAT/OBL Laterality: NOT APPLICABLE Number of different views (projections): 4 M: XB_1 COMPARISON: 03/17/2022 RESULT: Counting reference: Craniocervical junction Alignment appears preserved. Multilevel degenerative disc changes with severe disc height loss at C5-C6 and C6-C7. Oblique views are poorly profiled which limits the assessment. Moderate narrowing suspected at the right C4-C5 level and C6-C7 level. The left are nondiagnostic due to obliquity. No prevertebral soft tissue swelling. Prevertebral soft tissue gas noted. Lung apices are clear. No other significant abnormality. IMPRESSION: Prevertebral soft tissue gas. No swelling. Cervical spondylosis 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: BRIAN Transcribe Date/Time: Jul 30 2022 4:24P Dictated by : ULISES HENAO MD This examination was interpreted and the report reviewed and electronically signed by: ULISES HENAO MD on Jul 30 2022 4:26PM EST [id number] [facility] XR ESOPHAGRAMon 07-30-2022 XR ESOPHAGRAM * * *Final Report* * * DATE OF EXAM: Jul 30 2022 9:12AM FVX [id number] - XR ESOPHAGRAM / PROCEDURE REASON: Dysphagia, unexplained * * * * Physician Interpretation * * * * XR ESOPHAGRAM INDICATION: Dysphagia, unexplained COMPARISON: No available comparisons. TECHNIQUE: Single contrast water-soluble esophagram. Fluoroscopic Radiation Summary: Plane A, Air Kerma: 6.1 mGy Dose Area Product (DAP): Fluoro time: 1:00 min:sec RESULT: No esophageal leak. Small diverticulum along the posterior wall of the cervical esophagus at the C7 level IMPRESSION: No leak. 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: BRIAN Transcribe Date/Time: Jul 30 2022 11:34A Dictated by : CICI SANCHEZ MD This examination was interpreted and the report reviewed and electronically signed by: CICI SANCHEZ MD on Jul 30 2022 11:36AM EST [id number] [facility] ANES POSTPROC EVALon 022 ANES POSTPROC EVAL HNO ID: [id number] Author: Kingsley Champion MD Service: Anesthesiology Author Type: Anesthesiologist Type: Anesthesia Postprocedure Evaluation Filed: 07/29/2022 1:25 PM Note Text: POST ANESTHESIA EVALUATION NOTE : 1940 Procedure Summary Date: 07/29/22 Room / Location: OR06 / [facility] OR Anesthesia Start: 740 Anesthesia Stop: 1016 Procedures: DIVERTICULECTOMY HYPOPHARYNX OR ESOPHAGUS, CERVICAL APPROACH (Left: Neck) EGD (Esophagus) Diagnosis: Esophageal diverticulum (Esophageal diverticulum [Q39.6]) Surgeons: Sofia Wilde MD Responsible Provider: Kingsley Champion MD Anesthesia Type: general ASA Status: 3 Anesthesia Type: general Airway Type: ETT Last Vitals Vitals Value Taken Time BP 151/80 07/29/22 1300 Temp 36.7 ?C (98.1 ?F) 07/29/22 1013 Pulse 92 07/29/22 1324 Resp 9 07/29/22 1324 SpO2 97 % 07/29/22 1324 Vitals shown include unvalidated device data. Post Anesthesia Patient Status Patient Evaluation: PACU. PACU/ICU Patient Condition: stable. Anticipated Disposition: inpatient floor planned admission. Neurological Status: aware and responsive. Pulmonary Status: breathing comfortably on room air Airway Control: returned to baseline unsupported. Cardiovascular Status: stable. Pain Management: clinically adequate Postoperative Hydration: acceptable. Intraoperative Events: no significant anesthesia events Recommendation: continue current plan of care. Anesthesia Observations No Documentation SIGNATURE: Kingsley Champion MD PATIENT NAME: Javier Bond DATE: July 29, 2022 TIME: 1:24 PM CSN: [id number] [facility] ANES PRE-OPon 07-29-2022 ANES PRE-OP HNO ID: [id number] Author: Kingsley Champion MD Service: Anesthesiology Author Type: Anesthesiologist Type: Anesthesia Preprocedure Evaluation Filed: 07/29/2022 7:08 AM Note Text: ANESTHESIOLOGY DAY OF SURGERY NOTE : 1940 Procedure Information Date/Time: 07/29/22729 Procedure: DIVERTICULECTOMY HYPOPHARYNX OR ESOPHAGUS, CERVICAL APPROACH (Left: Neck) - CERVICAL EXPLORATION, ESOPHAGEAL DIVERTICULECTOMY, ESOPHAGOMYOTOMY Location: [facility] OR06 / [facility] OR Surgeons: Sofia Wilde MD Estimated body mass index is 24.28 kg/m? as calculated from the following: Height as of 07/16/22: 180.3 cm (5' 11"). Weight as of 07/16/22: 79 kg (174 lb 1.6 oz). Most recent hematocrit and potassium results: HCT 38.5 07/09/2022 Hematocrit (POCT) 24 12/17/2020 Potassium 4.0 07/09/2022 Potassium (POCT) 3.7 12/17/2020 Relevant Problems CARDIO (+) Bilateral carotid artery stenosis (+) Essential hypertension, benign GI (+) GERD (gastroesophageal reflux disease) (+) Hiatal hernia -RENAL (+) Nephrolithiasis NEURO-PSYCH (+) Episodic cluster headache, not intractable (+) History of compression fracture of spine (+) Personal history of other malignant neoplasm of skin I - PHYSICAL EVALUATION AIRWAY Patient intubated: No. Tracheostomy tube not present Mallampati: II. TM distance: >3 FB. Neck ROM: full ROM without neurological symptoms. Mouth opening: adequate. Short neck: no. Thick neck: no DENTAL Dentures, upper: complete. Dentures, lower: partial. Additional exam findings: yes. CARDIOVASCULAR Normal cardiovascular observations. PULMONARY Normal pulmonary observations. Breath sounds clear to auscultation. II - ANESTHESIA PLAN ASA Score: 3 Anesthetic Plan: general Airway type: ETT The patient is not a current smoker. NPO Status: adequate Monitoring plan: standard ASA. Postoperative analgesic plan: multimodal analgesia. Informed Consent Anesthetic risks, benefits, alternatives, personnel and consent discussed: yes. Patient / Responsible Constitution Party agrees to proceed: yes Patient / Surrogate agrees to blood products: Yes DNR status not reviewed with patient and/or family prior to surgery. Significant changes in the patient condition since the History and Physical, not otherwise documented in primary service progress note: no. Potential Anesthesia issues that may suggest increased risk of complications or contraindication to planned procedure: none. Vitals Value Taken Time BP 142/81 07/29/22 0700 Pulse 83 07/29/22 0700 Resp 18 07/29/22 07 Temp 37.3 ?C (99.1 ?F) 07/29/22 07 SpO2 98 % 07/29/22 07 Facility-Administered Medications as of 07/29/2022 Medication Dose Route Frequency - acetaminophen 1,000 mg tab(s) (TYLENOL) 1,000 mg ORAL ONCE - lactated ringers iv infusion 30 mL/hr INTRAVENOUS CONTINUOUS Outpatient Medications as of 07/29/2022 Medication Sig - sulfamethoxazole-trime thoprim (BACTRIM DS) 800-160 mg per tablet Take 1 tablet by mouth twice daily. - predniSONE (DELTASONE) 50 mg Take 1 tablet by mouth every 8 hours. Take one tablet by mouth 18 hrs prior to cath, then 10 hrs prior to cath and then 2 hr prior to cath - atorvastatin (LIPITOR) 10 mg tablet Take 1 tablet by mouth daily at bedtime. For cholesterol. - pantoprazole DR (PROTONIX) 40 mg tablet Take 40 mg by mouth once daily. - hydroCHLOROthiazide (HYDRODIURIL, ESIDRIX) 12.5 mg tablet Take 1 tablet by mouth once daily. - furosemide (LASIX) 20 mg tablet Take 1 tablet by mouth once daily. - tamsulosin (FLOMAX) 0.4 mg Take 1 capsule by mouth once daily. - traZODone (DESYREL) 50 mg tablet Take 0.5 tablets by mouth once daily. - quinapril (ACCUPRIL) 5 mg tablet Take 1 tablet by mouth once daily. - doxycycline 20 mg tablet Take 20 mg by mouth twice daily. - finasteride (PROSCAR) 5 mg tablet Take 1 tablet by mouth once daily. - OTC PRODUCT Taking stool softner 250 mg daily - multivit-min/iron/foli c acid/K (ADULTS MULTIVITAMIN ORAL) Take by mouth as directed. - lactobacillus combination no.8 (ADULT PROBIOTIC ORAL) Take by mouth as directed. - MEDICAL SUPPLY KAFO for right lower extremity. - acetaminophen (TYLENOL) 500 mg tablet Take 2 tablets by mouth every 8 hours as needed for Pain or Fever. - aspirin 81 mg chewable tablet Take 1 tablet by mouth once daily. - melatonin 3 mg tablet Take 1 tablet by mouth daily at bedtime. - calcium carbonate 600 mg-cholecalciferol 400 units (CALCIUM 600 + D) 600 mg(1,500mg) -400 unit tab Take 1 tablet by mouth twice daily. - metroNIDAZOLE 0.75 % cream Apply 1 application to affected area twice daily. I have interviewed and examined the patient. I have reviewed the medical record and/or the pre-anesthesia evaluation, pertinent labs, and test results. This contains updated information obtained within 48 hours of Surgery/Procedure. SIGNATURE: Kingsley Champion MD PATIENT NAME: Javier Bond DATE: July 29, 2022 (more content not included)... [facility] BRIEF OP NOTon 07-29-2022 BRIEF OP NOT HNO ID: [id number] Author: Sofia Wilde MD Service: Thoracic Surgery Author Type: Physician Type: Brief Op Note Filed: 07/29/2022 10:06 AM Note Text: BRIEF OPERATIVE / PROCEDURE NOTE LOG ID: [id number] SURGERY/PROCEDURE DATE: 07/29/2022 INCISION/PROCEDURE START TIME: 8:26 AM INCISION CLOSE/PROCEDURE END TIME: SURGEON(S)/PROCEDURALI ST(S) AND TERMINAL MAKE UP OPERATOR(S): Surgeon(s) and Role: * Sofia Wilde MD - Primary Physician Cutter Finisher: Mikayla Cortez PA-C SURGERY/PROCEDURE(S): Left cervical exploration. Mobilization of the cervical esophagus. EGD ANESTHESIA: General FINDINGS: Normal esophagus, no diverticulum identified. ESTIMATED BLOOD LOSS: < 5 mL SPECIMENS: None. COMPLICATIONS: None. PRE-OP/PRE-PROCEDURE DIAGNOSIS: Zenker's Diverticulum. POST-OP/POST-PROCEDURE DIAGNOSIS: Normal esophagus, no diverticulum identified. SIGNATURE: Sofia Wilde MD PATIENT NAME: Javier Bond DATE: July 29, 2022 TIME: 10:04 AM Normal [employer] [facility] Basic metabolic 2000 panelon 07-29-2022 Anion gap [Moles/Vol] 11 mmol/L Normal 9-18 [facility] Comment on above: Order Comment: Speci men Type: BLOOD SPECIMEN Ordering Facility: [facility] Address: [address] [place] [address] Performed By: #### 2 2, #### [facility] CLIA [id number] [address] [place] [address] [place] Calcium [Mass/Vol] 9.0 mg/dL Normal 8.5-10.2 [facility] Comment on above: Order Comment: Speci men Type: BLOOD SPECIMEN Ordering Facility: [facility] Address: [address] [place] [address] Performed By: #### 2 4320-10, #### [facility] CLIA [id number] [address] [place] [address] [place] Chloride [Moles/Vol] 101 mmol/L Normal 97-105 [facility] Comment on above: Order Comment: Speci men Type: BLOOD SPECIMEN Ordering Facility: [facility] Address: [address] [place] [address] Performed By: #### 2 4320-10, #### [facility] CLIA [id number] [address] [place] [address] [place] CO2 [Moles/Vol] 24 mmol/L Normal 22-30 [facility] Comment on above: Order Comment: Speci men Type: BLOOD SPECIMEN Ordering Facility: [facility] Address: [address] [place], [place] [id number] Performed By: #### 2 4321-2, #### [facility] CLIA [id number] [address] [place] [id number] [place] Creatinine [Mass/Vol] 1.00 mg/dL Normal 0.73-1.22 [facility] Comment on above: Order Comment: Manpreet macias Type: BLOOD SPECIMEN Ordering Facility: [facility] Address: [address] Performed By: #### 2 4321-2, #### [facility] CLIA [id number] [address] [place] [id number] [place] ESTIMATED GLOMERULAR FILTRATION RATE 77 mL/min/1.73m??? Normal >=60 [facility] Comment on above: Order Comment: [facility] colleen Type: BLOOD SPECIMEN Ordering Facility: [facility] Address: [address] [place] [address] Result Comment: [place] mated Glomerular Filtration Rate (eGFR) is calculated using the 2020 CKD-EPI creatinine equation. This equation utilizes serum creatinine, sex, and age as parameters. The creatinine assay has traceable calibration to isotope dilution-mass spectrometry. Refer to KDIGO guidelines for clinical interpretation. In patients with unstable renal function, e.g. those with acute kidney injury, the eGFR may not accurately reflect actual GFR. Performed By: #### 2 4321-2, #### [facility] CLIA [id number] [address] [place] [id number] [place] Glucose [Mass/Vol] 116 mg/dL High 74-99 [facility] Comment on above: Order Comment: Manpreet macias Type: BLOOD SPECIMEN Ordering Facility: [facility] Address: [address] Result Comment: The [place] Diabetes Association (ADA) provides guidance for cutoff values for fasting glucose and random glucose. The ADA defines fasting as no caloric intake for at least 8 hours. Fasting plasma glucose results between 100 to 125 mg/dL indicate increased risk for diabetes (prediabetes). Fasting plasma glucose results greater than or equal to 126 mg/dL meet the criteria for diagnosis of diabetes. In the absence of unequivocal hyperglycemia, results should be confirmed by repeat testing. In a patient with classic symptoms of hyperglycemia or hyperglycemic crisis, random plasma glucose results greater than or equal to 200 mg/dL meet the criteria for diagnosis of diabetes. Reference: Standards of Medical Care in Diabetes 2016, [place] Diabetes Association. Diabetes Care. 2016.39(Suppl 1). Performed By: #### 2 4321-2, #### [facility] CLIA [id number] [place] [address] [place] Potassium [Moles/Vol] 3.8 mmol/L Normal 3.7-5.1 [facility] Comment on above: Order Comment: Speci men Type: BLOOD SPECIMEN Ordering Facility: [facility] Address: [address] [place] [address] Performed By: #### 2 4320-10, #### [facility] CLIA [id number] [place] [address] [place] Sodium [Moles/Vol] 136 mmol/L Normal 136-144 [facility] Comment on above: Order Comment: Salvatorei cloleen Type: BLOOD SPECIMEN Ordering Facility: [facility] Address: [address] [place] [address] Performed By: #### 2 4320-10, #### [facility] CLIA [id number] [place] [address] [place] Urea nitrogen [Mass/Vol] 17 mg/dL Normal 9-24 [facility] Comment on above: Order Comment: Speci men Type: BLOOD SPECIMEN Ordering Facility: [facility] Address: [address] [place] [address] Performed By: #### 2 4320-10, #### [facility] CLIA [id number] [place] [address] [place] CBC panel Auto (Bld)on 07-29 Erythrocyte distribution width (RBC) [Ratio] 12.4 % Normal 11.5-15.0 [facility] Comment on above: Order Comment: Speci men Type: BLOOD SPECIMENOrdering Facility: [facility] Address: [address] [place] [address] Performed By: #### 5 8410-2 ####[facility] [id number] [address] [place] Hematocrit (Bld) [Volume fraction] 34.9 % Low 39.0-51.0 [facility] Comment on above: Order Comment: Speci men Type: BLOOD SPECIMENOrdering Facility: [facility] Address: [address] [place] [address] Performed By: #### 5 8410-2 ####[facility] [id number] [address] [place] Hemoglobin (Bld) [Mass/Vol] 11.6 g/dL Low 13.0-17.0 [facility] Comment on above: Order Comment: Speci men Type: BLOOD SPECIMENOrdering Facility: [facility] Address: [address] [place] [address] Performed By: #### 5 8410-2 ####[facility] [id number] [address] MCH (RBC) [Entitic mass] 30.8 pg Normal 26.0-34.0 [facility] Comment on above: Order Comment: Speci men Type: BLOOD SPECIMENOrdering Facility: [facility] Address: [address] [place] [address] Performed By: #### 5 8410-2 ####[facility] [id number] [place] [address] [place] MCHC (RBC) [Mass/Vol] 33.2 g/dL Normal 30.5-36.0 [facility] Comment on above: Order Comment: Speci men Type: BLOOD SPECIMENOrdering Facility: [facility] Address: [address] [place] [address] Performed By: #### 5 8410-2 ####[facility] [id number] [address] [place] MCV (RBC) [Entitic vol] 92.6 fL Normal 80.0-100.0 [facility] Comment on above: Order Comment: Speci men Type: BLOOD SPECIMENOrdering Facility: [facility] Address: [address] [address] Performed By: #### 5 8410-2 ####[facility] [id number] [address] [place] Nucleated RBC (Bld) [#/Vol] 10*3/uL Normal <0.01 [facility] Comment on above: Order Comment: Speci men Type: BLOOD SPECIMENOrdering Facility: [facility] Address: [address] [place] [address] Performed By: #### 5 8410-2 ####[facility] [id number] [address] [place] Platelet mean volume (Bld) [Entitic vol] 9.5 fL Normal 9.0-12.7 [facility] Comment on above: Order Comment: Speci men Type: BLOOD SPECIMENOrdering Facility: [facility] Address: [address] [address] Performed By: #### 5 8410-2 ####[facility] [id number] [place] [address] [place] Platelets (Bld) [#/Vol] 140 10*3/uL Low 150-400 [facility] Comment on above: Order Comment: Speci men Type: BLOOD SPECIMENOrdering Facility: [facility] Address: [address] [address] Performed By: #### 5 8410-2 ####[facility] [id number] [place] [address] [place] RBC (Bld) [#/Vol] 3.77 10*6/uL Low 4.20-6.00 [facility] Comment on above: Order Comment: Speci men Type: BLOOD SPECIMENOrdering Facility: [facility] Address: [address] [address] Performed By: #### 5 8410-2 ####[facility] [id number] [place] [id number] [place] WBC (Bld) [#/Vol] 7.77 10*3/uL Normal 3.70-11.00 [facility] Comment on above: Order Comment: Manpreet colleen Type: BLOOD SPECIMENOrdering Facility: [facility] Address: [address] [place] [id number] Performed By: #### 5 8410-2 ####[facility] [id number] [place] [id number] [place] HISTORY PHYSICALon HISTORY PHYSICAL HNO ID: [id number] Author: Mikayla Cortez PA-C Service: Cardiac Surgery Author Type: Physician Cutter Finisher Type: HANDP Filed: 07/29/2022 7:35 AM Note Text: UPDATED HISTORY AND PHYSICAL EXAMINATION SERVICE DATE: 07/29/2022 SERVICE TIME: 7:35 AM PHYSICAL EXAM MUST BE COMPLETED ON ADMISSION The History and Physical (completed in the past 30 days) has been reviewed and the patient has been examined. The contents accurately reflect the patient's condition with the following additions or revisions since the HANDP was completed. Sitting up in bed. NAD. Afebrile, vital signs stable. Breathing comfortably on RA. Lungs CTAB Abd soft, NT, +BS Regular rate and rhythm, normal S1 and S2, no murmurs Examination indicates no changes. This HANDP can be found in the Electronic Medical Record dated 07/16/22. SIGNATURE: Mikayla Cortez PA-C PATIENT NAME: Javier Bond DATE: July 29, 2022 TIME: 7:35 AM Normal [employer] Magnesium SerPl-mCncon 07-29 Magnesium [Mass/Vol] 1.9 mg/dL Normal 1.7-2.3 [facility] Comment on above: Order Comment: Manpreet men Type: BLOOD SPECIMEN Ordering Facility: [facility] Address: [place] [address] Performed By: #### 2 4321-2, 02488-7 #### [facility] CLIA [id number] [place] NURSING PROGon 07-29-2022 NURSING PROG HNO ID: [id number] Author: Stefan Russo RN Service: ? Author Type: Registered Nurse Type: Nursing Progress Note Filed: 07/29/2022 6:22 PM Note Text: Other: 1500 Received pt from PACU. VSS. Monitor SR. afebrile. denies cp, dizziness, or palpitations. 100% on RA. denies sob. Left anterior neck dressing CDI. no drainage noted. no swelling noted. denies pain at this time. prn pain medications ordered. pt completed swallow eval. taking sips of clear liquids without difficulty. Clear liquid diet ordered at this time. IVF continues at 75 cc/hr. pt NPO after midnight for procedure tomorrow. Family at bedside. pt and family oriented to room and surroundings. call abrams in reach. continue assess. 1700 Pt states feeling fullness in bladder. Pt becoming very anxious at this time and states he cannot urinate. bladder scanned for 691 cc urine. Thoracic surgery paged for orders. 1800 Orders received for almanza catheter placement. 16 albanian Coude placed with 750 cc jossue urine drained immediately. Flomax ordered. call abrams in reach. ongoing assess. [facility] NURSING PROG HNO ID: [id number] Author: Yuridia Botello RN Service: ? Author Type: Registered Nurse Type: Nursing Progress Note Filed: 07/29/2022 7:01 AM Note Text: PATIENT EDUCATION TOPIC: PROCEDURE / SURGERY: Pre-op Teaching: Logistics Protocols PATIENT NAME: Javier Bond PATIENT LOCATION: [facility] OR POOL/[facility] OR POOL READINESS TO LEARN COGNITIVE ABILITY: Alert and oriented MOTIVATION TO LEARN: Eager FAMILY SUPPORT: None - Unavailable/disinteres july INSTRUCTION PROVIDED TO: Patient PATIENT LEARNS BEST BY: Individual Instruction FACTORS AFFECTING LEARNING: None PHYSICAL LIMITATIONS AFFECTING LEARNING: None LEARNING RESPONSE DIAGNOSIS: ADULT: Well Adult PATIENT/FAMILY RESPONSE: Verbalizes understanding of: PRE-OPERATIVE INSTRUCTIONS-Correct action to take to follow pre-operative instructions METHOD OF INSTRUCTION: Individual instruction FOLLOW-UP PLAN: Complete - No need for follow-up INSTRUCTIONAL AIDS USED: NA SUPPLEMENTAL MATERIAL PROVIDED TO PATIENT: None REFERRAL (RECOMMENDATION): None Electronically Signed By: Yuridia Botello [facility] OPERATIVE NOon 07-29-2022 OPERATIVE NO HNO ID: [id number] Author: Sofia Wilde MD Service: Thoracic Surgery Author Type: Physician Type: Operative Report Filed: 07/29/2022 10:16 AM Note Text: DATE OF OPERATION: July 29, 2022 NAME: JAVIER BOND MR# [id number] PREOPERATIVE DIAGNOSIS: Zenker's Diverticulum. POSTOPERATIVE DIAGNOSIS: Normal esophagus, no diverticulum identified. PROCEDURE PERFORMED: Left cervical exploration. Mobilization of the cervical esophagus. EGD SURGEON: Sofia Wilde Jr, M.D. RESIDENT SURGEON: None (there was no qualified resident to assist with this operation) TERMINAL MAKE UP OPERATOR: Mikayla Cortez PA-C ANESTHESIA: General endotracheal anesthesia. FINDINGS: Normal esophagus, no diverticulum identified. INDICATIONS FOR OPERATION: Javier Bond is a very pleasant 81-year old gentleman who has been diagnosed with a Zenker's diverticulum. The patient complains of regurgitation, constantly having to ' clear his throat ' and dysphagia. The patient also has a hiatal hernia. The patient had an upper GI/esophagram at an outside institution and is thought to have a small Zenker's Diverticulum. He ws referred to discuss diverticulectomy and esophagomyotomy. I personally reviewed all available diagnostic studies and documentation. I discussed management of this patient's Zenker's diverticulum. I discussed left cervical neck exploration, diverticulectomy and esophagomyotomy. I did discuss the risks, options, benefits and alternatives in detail with the patient. The patient understands the risks and complications and would like to proceed. All of his questions were answered. The patient signed consent forms for operation. I was present for and performed the douglas and critical portions of the operation including: Left cervical exploration. Mobilization of the cervical esophagus. EGD OPERATION AND FINDINGS: After informed consent, the patient was transported to the main operating room and placed supine on the operating table. A timeout was called verifying the correct patient, procedure, operative site, positioning, and the need for any special equipment. After the induction of satisfactory general endotracheal anesthesia, the patient was intubated with a single lumen endotracheal tube. The patient was placed supine on the operating room table. The patient's neck was extended and his head was supported on a head ring. The patient's arms were tucked and padded at the sides. The patient's neck, chest, and abdomen was prepped and draped in the usual sterile fashion. And oblique incision was created sharply with a #15 blade knife overlying the medial edge of the sternocleidomastoid on the left side of the patient's neck. The incision extended from the thyroid cartilage to the manubrium. The platsyma muscle was cut sharply. The sternocleidomastoid was retracted laterally. An avascular plane was developed between the sternocleidomastoid and the trachea. The carotid sheath was retracted laterally and the trachea and esophagus were retracted medially. Great care was taken avoid any pressure or injury to the recurrent laryngeal nerve. The cervical esophagus was identified. It was carefully dissected sharply with a right angle clamp, electrocautery and Metzenbaum scissors. 1/4 inch Alexandra drain was placed around the cervical esophagus and it was retracted laterally. The avascular plane around the cervical esophagus was developed both proximally and medially from the thyroid cartilage to the level of the thoracic inlet. The cervical esophagus carefully identified. There was no diverticulum identified. Esophagogastroduodenos copy was performed. The esophagoscope was introduced through the patient's mouth. The flexible scope was advanced carefully passed the posterior oropharynx and into the proximal esophagus. The esophagus was examined for its entire length from the posterior oral pharnyx to the esophagogastric junction. There were no abnormalities. There was no diverticulum identified. The esophagoscope was removed without difficulty. The patient tolerated this portion of the operation well with no complications. Medium silver clip markers were applied to the esophagus at the most distal and proximal portions of the cervical dissection. The wound was irrigated with warm sterile saline that was removed with the suction device. The muscles were reapproximated in one layer using interrupted #2-0 Vicryl suture. The platysma muscle was reapproximated with a #3-0 Vicryl suture in running fashion. The subcutaneous tissue was reapproximated with #3-0 Vicryl suture in running fashion. The skin was reapproximated with #4-0 Monocryl suture in running subcuticular fashion. Dermabond adhesive was applied to the incision. All sponge, needle, and instrument counts were reported to me as correct times two. Estimated blood loss for the procedure was less than 5 mL. The patient was awakened in (more content not included)... Normal [employer] [facility] [employer] TYPE + SCREENon 07-29-2022 ABO A [facility] Comment on above: Order Comment: Speci men Type: BLOOD SPECIMENOrdering Facility: [facility] Address: [address] [place] [address] Performed By: #### T SCR ####[facility] [id number] [address] HISTORICAL AB SCR STATUS Negative [facility] Comment on above: Order Comment: Speci men Type: BLOOD SPECIMENOrdering Facility: [facility] Address: [address] [place] [address] Performed By: #### T SCR ####[facility] [id number] [address] Rh Nom (Bld) Positive [facility] Comment on above: Order Comment: Speci men Type: BLOOD SPECIMENOrdering Facility: [facility] Address: [address] [place] [address] Performed By: #### T SCR ####[facility] [id number] [address] TYPE AND SCREEN EXPIRATION 08/01/2022 23:59 [facility] Comment on above: Order Comment: Speci men Type: BLOOD SPECIMENOrdering Facility: [facility] Address: [address] [place] [address] Performed By: #### T SCR ####[facility] [id number] [address] [place] XR CHEST 1V FRONTALon 2021 XR CHEST 1V FRONTAL * * *Final Report* * * DATE OF EXAM: Jul 29 2022 11:04AM FVO [id number] - XR CHEST 1V FRONTAL / PROCEDURE REASON: Post-operative / post-procedure assessment, asymptomatic * * * * Physician Interpretation * * * * EXAMINATION: CHEST RADIOGRAPH (SINGLE VIEW AP OR PA) CLINICAL HISTORY: Post-operative / post-procedure assessment, asymptomatic MQ: XC1_5 Comparison: Chest x-ray 12/24/2020 RESULT: Lines, tubes, and devices: None Lungs and pleura: No pneumothorax, pleural effusions, or focal consolidation. Cardiomediastinal silhouette: Normal cardiomediastinal silhouette. Other: Possible small amount subcutaneous gas overlying the left neck, likely postoperative IMPRESSION: No acute process. Possible small amount of subcutaneous gas overlying the left neck, likely postoperative. 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: BRIAN Transcribe Date/Time: Jul 29 2022 11:42A Dictated by : JENN CUMMINGS MD This examination was interpreted and the report reviewed and electronically signed by: JENN CUMMINGS MD on Jul 29 2022 11:45AM EST [id number] Normal [employer] XR SCOLIOSIS PA STAND/LAT [facility] RONDAJAVIER Meza ([id number]) 1940 M NFR Date Time Provider Department 07/19/22 SOFIA WILDE [facility] During your visit today, we recorded the following information about you: Patience Martin RN 07/19/2022 9:39 AM Signed Peter of patient called to schedule surgery that was postpone prior for: CERVICAL EXPLORATION , ESOPHAGEAL DIVERTICULECTOMY, ESOPHAGOMYOTOMY She mentions that Javier had his Cath on 07/16 and was clear and now asking to reschedule surgery ? Dr Rdz: ADDITIONAL PROCEDURES CORONARY ANGIOGRAPHY: LEFT MAIN TRUNK: No Stenosis LEFT ANTERIOR DESCENDING: No Stenosis LEFT CIRCUMFLEX: No Stenosis DOMINANT: NO RIGHT CORONARY: No Stenosis, mild atherosclerosis DOMINANT: YES POSTERIOR DESCENDING: No Stenosis POSTERIOR LATERAL: No Stenosis Allergies As of Date: 07/19/2022 Noted Allergy Reaction CONTRAST DYE 03/24/2009 4 - Hives FINACEA (AZELAIC ACID) 09/28/2017 2 - Rash BACTRIM (SULFAMETHOXAZOLE-TRIM ETH*06/02/2005 16 - Unknown BEXTRA (VALDECOXIB) 06/02/2005 16 - Unknown CARDURA (DOXAZOSIN MESYLATE) 06/02/2005 16 - Unknown CIPROFLOXACIN 11/30/2002 16 - Unknown CYTOTEC (MISOPROSTOL) 06/02/2005 16 - Unknown FOSAMAX (ALENDRONATE SODIUM) 01/04/2020 11 - Vomiting Comments: heartburn, vomiting GABAPENTIN 01/28/2021 1 - Mental Status Change KEFLEX (CEPHALEXIN) 08/13/2013 2 - Rash KETOCONAZOLE 09/06/2008 16 - Unknown LEVOFLOXACIN 01/26/2012 14 - Other: See Comments Comments: Pseudomonas MOBIC (MELOXICAM) 06/02/2005 16 - Unknown NITROFURANTOIN 05/15/2021 14 - Other: See Comments Comments: Per , he didn't feel well - unsure of reaction NSAIDS (NON-STEROIDAL ANTI-INFLAM*11/30/2002 16 - Unknown Comments: GI UPSET RELAFEN (NABUMETONE) 06/02/2005 16 - Unknown TERBINAFINE 10/02/2009 8 - GI Upset Date Reviewed: 07/14/2022 Reviewed by: Raisa Andino - Fully Assessed Reason for Visit: Patient Question [1477] Prescriptions as of 07/19/2022 - predniSONE (DELTASONE) 50 mg Take 1 tablet by mouth every 8 hours. Take one tablet by mouth 18 hrs prior to cath, then 10 hrs prior to cath and then 2 hr prior to cath - atorvastatin (LIPITOR) 10 mg tablet Take 1 tablet by mouth daily at bedtime. For cholesterol. - pantoprazole DR (PROTONIX) 40 mg tablet Take 40 mg by mouth once daily. - hydroCHLOROthiazide (HYDRODIURIL, ESIDRIX) 12.5 mg tablet Take 1 tablet by mouth once daily. - furosemide (LASIX) 20 mg tablet Take 1 tablet by mouth once daily. - tamsulosin (FLOMAX) 0.4 mg Take 1 capsule by mouth once daily. - traZODone (DESYREL) 50 mg tablet Take 0.5 tablets by mouth once daily. - quinapril (ACCUPRIL) 5 mg tablet Take 1 tablet by mouth once daily. - doxycycline 20 mg tablet Take 20 mg by mouth twice daily. - finasteride (PROSCAR) 5 mg tablet Take 1 tablet by mouth once daily. - OTC PRODUCT Taking stool softner 250 mg daily - multivit-min/iron/foli c acid/K (ADULTS MULTIVITAMIN ORAL) Take by mouth as directed. - lactobacillus combination no.8 (ADULT PROBIOTIC ORAL) Take by mouth as directed. - MEDICAL SUPPLY KAFO for right lower extremity. - acetaminophen (TYLENOL) 500 mg tablet Take 2 tablets by mouth every 8 hours as needed for Pain or Fever. - aspirin 81 mg chewable tablet Take 1 tablet by mouth once daily. - melatonin 3 mg tablet Take 1 tablet by mouth daily at bedtime. - calcium carbonate 600 mg-cholecalciferol 400 units (CALCIUM 600 + D) 600 mg(1,500mg) -400 unit tab Take 1 tablet by mouth twice daily. - metroNIDAZOLE 0.75 % cream Apply 1 application to affected area twice daily. 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, N13.8] 07/04/2007 Nephrolithiasis [N20.0] 07/04/2007 Duodenitis without mention of hemorrhage [K29.8*12/26/2008 09/05/2014 Acute gastritis without mention of hemorrhage [*12/26/2008 09/05/2014 Prostatocystitis [N41.3] 03/24/2009 08/13/2013 GERD (gastroesophageal reflux disease) [K21.9] 03/25/2009 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 Normal [employer] Bacteria Ur Culton 2 Bacteria identified Cx Nom (U) ORGANISM ID: 1 >=100,000 CFU/ml Escherichia coli ORGANISM ID: 1 (ESCHERICHIA COLI) -- ANTIBIOTIC INTERPRETATION CONOR STATUS REFERENCE RANGE -- Ampicillin R >=32 F Susceptible <=8 , Intermediate >8 , Resistant >16 Ampicillin/Sulbact I 16 F Susceptible <=8 , Intermediate >8 , Resistant >16 Cefazolin S <=4 F Susceptible 0-16 , Intermediate <0 or >16 , Resistant >16 Cefepime S <=1 F Susceptible <=2 , Intermediate >2 , Resistant >=16 Ceftriaxone S <=1 F Susceptible <=1 , Intermediate >1 , Resistant >=4 Ciprofloxacin S <=0.25 F Susceptible <0.5 , Intermediate >=.5 , Resistant >=1 Ertapenem S <=0.5 F Susceptible <=0.5 , Intermediate >.5 , Resistant >1 Gentamicin S <=1 F Susceptible <=4 , Intermediate >4 , Resistant >8 Meropenem S <=0.25 F Susceptible <=1 , Intermediate >1 , Resistant >2 Nitrofurantoin S <=16 F Susceptible <=32 , Intermediate >32 , Resistant >64 Piperacillin/Tazobac S <=4 F Susceptible <=16 , Intermediate >16 , Resistant >64 Tobramycin S <=1 F Susceptible <=4 , Intermediate >4 , Resistant >8 Trimeth sulfameth S <=20 F Susceptible <=40 , Resistant >40 Abnormal [facility] Comment on above: Performed By: #### 6 30-4 ####[facility] [id number] [address] [place] HISTORY PHYSICALon 2 HISTORY PHYSICAL HNO ID: [id number] Author: Gilma Sanders PA-C Service: Cardiovascular Disease Author Type: Physician Cutter Finisher Type: HANDP Filed: 07/16/2022 1:53 PM Note Text: UPDATED HANDP PRE-CARDIAC CATHETERIZATION SERVICE DATE: 07/16/2022 SERVICE TIME: 1:42 PM PROCEDUREALIST: Surgeon(s) and Role: * Santy Rdz MD - Primary PHYSICAL EXAM MUST BE COMPLETED ON ADMISSION The History and Physical (completed in the past 30 days) has been reviewed and the patient has been examined. The contents accurately reflect the patient's condition with the following additions or revisions since the HANDP was completed. Examination indicates that the patient pre-operative cardiovascular stress test became abnormal Planned Procedure: Left Heart Cath Primary Indication for Procedure: Abnormal Stress Test High Risk Features: History of Prior CABG: No History of Prior PCI: No Cardiomyopathy: No Anti-ischemic Meds in Past 2 Weeks: Other anti-ischemic drug therapy Ejection Fraction: 43% from Previous Stress Test Risk Appropriateness: Angina Class in Past 2 Weeks: Class II - Slight limitation of ordinary activity Cardiogenic Shock: NoHeart Failure: None Stress Test Performed: Yes, Stress Nuclear completed on 07/12/22 Results Showed; Positive, Extent of Ischemia; Intermediate EKG Assessment: Normal Family History of Premature CAD: None Evaluation for Preop Clearance: Non-Cardiac Surgery, Functional Capacity; Unknown, Surgical Risk; Intermediate HISTORY OF BLEEDING: No This HANDP can be found in the Electronic Medical Record dated 07/14/22. Assessment: Cardiac risk assessment completed with detailed review of cardiac test/results as documented above. Pt has UTI symptoms his urine was sent to be analized , Plan: Results reviewed. Proceed with Cardiac Cath as scheduled. SIGNATURE: Gilma Sanders PA-C PATIENT NAME: Javier Bond DATE: July 16, 2022 TIME: 1:42 PM patient pre-operative cardiovascular stress test became abnormal Normal [employer] NURSING PROGon 07-16-2022 NURSING PROG HNO ID: [id number] Author: Aly Whitehead RN Service: Nursing Author Type: Registered Nurse Type: Nursing Progress Note Filed: 07/16/2022 7:53 PM Note Text: 1828 Returned to pre/post s/p [facility] at ~1714. R groin noted with dressing cd+I. Area soft and without hematoma or bleeding. DP pulses palpable. No pain or complaints. VSS. Per minilab operator RN, pt to f/u with primary care physician for f/u of UTI. Pt aware, states, I will use my urologist for follow-up". 1950 Bedrest complete a 0. Up oob and steady in room with walker. R groin remains soft and without hematoma or bleeding before and after ambulation. Discharge instructions given and explained to pt and . All questions answered. Awaiting transporter to take pt down by wc to car for pts to take pt home. Normal [employer] OPERATIVE NOon 07-16-2022 OPERATIVE NO HNO ID: [id number] Author: Santy Rdz MD Service: Cardiovascular Medicine Author Type: Physician Type: Operative Report Filed: 07/16/2022 5:02 PM Note Text: [employer] INSTRUCTOR PROCEDURE REPORT SERVICE DATE: 07/16/2022 SERVICE TIME: BROADCAST DIRECTOR OPERATIONS: Santy Rdz MD ATTENDING: Santy Rdz MD PRIMARY CARE PHYSICIAN: Francisco Bahena MD REFERRING PROVIDER: roderick [place] STUDY OF HEALTH and AGING SCALE:4=Vulnerable CARDIOVASCULAR INSTABILITY:No PRE-PROCEDURE DIAGNOSIS: Abnormal Stress Test POST PROCEDURE DIAGNOSIS: Dilated Cardiomyopathy (Moderate) PROCEDURE: Left Heart Catheterization LV Gram MODERATE SEDATION: Moderate Sedation provided by Cardiology Nursing Staff. Moderate sedation consisting of continuous ECG, pulse oximetry and cardiopulmonary monitoring was performed by the Cardiology Nurse, overseen by supervising physician, for an intra-service time of 0 hr. 30 min. Sedative Medications: Drug: Versed Dose: 0.5 mg Route: IV Drug: Fentanyl Dose: 25 mcg Route: IV PRIORITY AT TIME OF PROCEDURE: Elective SITE OF ENTRY: Groin:Right CONTRAST: Omnipaque 350 mg Iodine/mL (iohexol injection, solution): 40 mL LEFT HEART CATHETERIZATION AND FINDINGS: The patient was taken to the cardiac laborer cheesemaking where the entry site was prepped and draped in a sterile manner. Under local anesthesic with 2% Lidocaine, the vessel was cannulated with micropuncture technique using an arterial needle and Ultrasound was used to visualize and guide the entry into the vessal and a 5F sheath was introduced. Selective injections were made in the left and right coronary arteries and various right, left and oblique views were obtained. The aortic valve was crossed and hemodynamic measurements were recorded. LV Angiogram was performed. ADDITIONAL PROCEDURES CORONARY ANGIOGRAPHY: LEFT MAIN TRUNK: No Stenosis LEFT ANTERIOR DESCENDING: No Stenosis LEFT CIRCUMFLEX: No Stenosis DOMINANT: NO RIGHT CORONARY: No Stenosis, mild atherosclerosis DOMINANT: YES POSTERIOR DESCENDING: No Stenosis POSTERIOR LATERAL: No Stenosis LV GRAM: LVEF: Moderately Abnormal (30-44%) WALL MOTION: Abnormal Global MITRAL VALVE REGURGITATION: Not Assessed HEMODYNAMICS: LVEDP: 15 LV - AORTA: No Gradient The sheath was removed and hemostatsis was established using Mynx closure device. There was no bleeding at the end of the procedure. The pt was returned to the recovery room in a stable condition. ESTIMATED BLOOD LOSS: Less Than Minimal Unless Noted Here. COMPLICATIONS: None SPECIMENS: No specimens obtained unless noted here. CONDITION: Stable RECOMMENDATIONS: Follow protocol of post-op orders. Follow up with Dr vaughn SIGNATURE: Santy Rdz MD PATIENT NAME: Javier Bond DATE: July 16, 2022 TIME: 5:00 PM Normal [employer] Urinalysis complete panel (U )on 07-16-2022 Bacteria LM.HPF (Urine sed) [#/Area] Rare Abnormal None Seen [facility] Comment on above: Order Comment: Speci men Type: URINE SPECIMEN [facility] Address: [address] [place] [id number] Performed By: #### 2 4356-8 #### [facility] CLIA [id number] [place] [address] [place] Bilirubin Ql (U) Negative Normal Negative [facility] Comment on above: Order Comment: Speci men Type: URINE SPECIMEN [facility] Address: [address] [place] [address] Performed By: #### 2 4356-8 #### [facility] CLIA [id number] [address] [place] [address] [place] Clarity (Unsp spec) Clear Normal Clear [facility] Comment on above: Order Comment: Speci men Type: URINE SPECIMEN [facility] Address: [address] [place] [address] Performed By: #### 2 4356-8 #### [facility] CLIA [id number] [address] [place] [address] [place] Color (U) Light Yellow Normal Yellow [facility] Comment on above: Order Comment: Speci men Type: URINE SPECIMEN [facility] Address: [address] [place] [address] Performed By: #### 2 4356-8 #### [facility] CLIA [id number] [address] [place] [address] [place] Glucose Test strip (U) [Mass/Vol] Negative Normal Negative [facility] Comment on above: Order Comment: Speci men Type: URINE SPECIMEN [facility] Address: [address] [place] [address] Performed By: #### 2 4356-8 #### [facility] CLIA [id number] [address] [place] [address] [place] Hemoglobin Ql (U) Negative Normal Negative [facility] Comment on above: Order Comment: Speci men Type: URINE SPECIMEN [facility] Address: [address] [place] [address] Performed By: #### 2 4356-8 #### [facility] CLIA [id number] [address] [place] [address] [place] Ketones Ql (U) Negative Normal Negative [facility] Comment on above: Order Comment: Speci men Type: URINE SPECIMEN [facility] Address: [address] [place] [address] Performed By: #### 2 4356-8 #### [facility] CLIA [id number] [address] [place] [address] STATES [facility] Leukocyte esterase Test strip Ql (U) 250 Mable/mL Abnormal Negative [facility] Comment on above: Order Comment: Speci men Type: URINE SPECIMEN [facility] Address: [address] [place] [address] Performed By: #### 2 4356-8 #### [facility] CLIA [id number] [address] [place] [address] [place] Nitrite Ql (U) 1+ Abnormal Negative [facility] Comment on above: Order Comment: Speci men Type: URINE SPECIMEN [facility] Address: [address] [place] [address] Performed By: #### 2 4356-8 #### [facility] CLIA [id number] [address] [place] [address] [place] pH (U) 6.5 [pH] Normal 5.0-8.0 [facility] Comment on above: Order Comment: Speci men Type: URINE SPECIMEN [facility] Address: [address] [place] [address] Performed By: #### 2 4356-8 #### [facility] CLIA [id number] [address] [place] [address] [place] Protein (U) [Mass/Vol] Negative Normal Negative [facility] Comment on above: Order Comment: Speci men Type: URINE SPECIMEN [facility] Address: [address] [place] [address] Performed By: #### 2 4356-8 #### [facility] CLIA [id number] [address] [place] [address] [place] RBC LM.HPF (Urine sed) [#/Area] 3-5 /HPF Abnormal 0-3 /HPF [facility] Comment on above: Order Comment: Speci men Type: URINE SPECIMEN [facility] Address: [address] [place] [address] Performed By: #### 2 4356-8 #### [facility] CLIA [id number] [address] [place] [address] [place] Specific gravity (U) [Rel density] 1.013 Normal 1.005-1.030 [facility] Comment on above: Order Comment: Speci men Type: URINE SPECIMEN [facility] Address: [address] [place] [address] Performed By: #### 2 4356-8 #### [facility] CLIA [id number] [place] [address] [place] Urobilinogen Ql (U) Negative Normal Negative [facility] Comment on above: Order Comment: Speci men Type: URINE SPECIMEN [facility] Address: [address] [place] [address] Performed By: #### 2 4356-8 #### [facility] CLIA [id number] [address] [place] [address] [place] WBC LM.HPF (Urine sed) [#/Area] 11-25 /HPF Abnormal 0-5 /HPF [facility] Comment on above: Order Comment: Speci men Type: URINE SPECIMEN [facility] Address: [address] [place] [address] Performed By: #### 2 4356-8 #### [facility] CLIA [id number] [address] [place] [address] [place] Genoveva 07-13-2022 ASHLEY Telephone (REFAIR) JAVIER BOND ([id number]) 1940 M NFR Date Time Provider Department 07/13/22 BRINDA COLON During your visit today, we recorded the following information about you: Miguel A Guerrier 07/13/2022 2:06 PM Signed IRB # [id number] Tight perioperative blood pressure management to reduce serious cardiovascular, renal, and cognitive complications: The GUARDIAN trial PI: Brinda Colon MD, CHARLY, FASA. Outcomes Research Department. [facility] [place]. [facility]. This is a research study note. Patient assessments recorded here should not guide either clinical care or clinical decision-making. I spoke with Javier Meza Ronda regarding eligibility for the Guardian study. Patient is not interested in research at this time. Miguel A Guerrier Research Cutter Finisher Department of OUTCOMES RESEARCH Anesthesiology [place] Allergies As of Date: 07/13/2022 Noted Allergy Reaction CONTRAST DYE 03/24/2009 4 - Hives FINACEA (AZELAIC ACID) 09/28/2017 2 - Rash BACTRIM (SULFAMETHOXAZOLE-TRIM ETH*06/02/2005 16 - Unknown BEXTRA (VALDECOXIB) 06/02/2005 16 - Unknown CARDURA (DOXAZOSIN MESYLATE) 06/02/2005 16 - Unknown CIPROFLOXACIN 11/30/2002 16 - Unknown CYTOTEC (MISOPROSTOL) 06/02/2005 16 - Unknown FOSAMAX (ALENDRONATE SODIUM) 01/04/2020 11 - Vomiting Comments: heartburn, vomiting GABAPENTIN 01/28/2021 1 - Mental Status Change KEFLEX (CEPHALEXIN) 08/13/2013 2 - Rash KETOCONAZOLE 09/06/2008 16 - Unknown LEVOFLOXACIN 01/26/2012 14 - Other: See Comments Comments: Pseudomonas MOBIC (MELOXICAM) 06/02/2005 16 - Unknown NITROFURANTOIN 05/15/2021 14 - Other: See Comments Comments: Per , he didn't feel well - unsure of reaction NSAIDS (NON-STEROIDAL ANTI-INFLAM*11/30/2002 16 - Unknown Comments: GI UPSET RELAFEN (NABUMETONE) 06/02/2005 16 - Unknown TERBINAFINE 10/02/2009 8 - GI Upset Date Reviewed: 07/09/2022 Reviewed by: Brandi Messina APRN.TIME SIGNAL WIRER - Fully Assessed Reason for Visit: Research Outreach [Other] Prescriptions as of 07/13/2022 - atorvastatin (LIPITOR) 10 mg tablet Take 1 tablet by mouth daily at bedtime. For cholesterol. - pantoprazole DR (PROTONIX) 40 mg tablet Take 40 mg by mouth once daily. - hydroCHLOROthiazide (HYDRODIURIL, ESIDRIX) 12.5 mg tablet Take 1 tablet by mouth once daily. - furosemide (LASIX) 20 mg tablet Take 1 tablet by mouth once daily. - tamsulosin (FLOMAX) 0.4 mg Take 1 capsule by mouth once daily. - traZODone (DESYREL) 50 mg tablet Take 0.5 tablets by mouth once daily. - quinapril (ACCUPRIL) 5 mg tablet Take 1 tablet by mouth once daily. - doxycycline 20 mg tablet Take 20 mg by mouth twice daily. - finasteride (PROSCAR) 5 mg tablet Take 1 tablet by mouth once daily. - OTC PRODUCT Taking stool softner 250 mg daily - multivit-min/iron/foli c acid/K (ADULTS MULTIVITAMIN ORAL) Take by mouth as directed. - lactobacillus combination no.8 (ADULT PROBIOTIC ORAL) Take by mouth as directed. - MEDICAL SUPPLY KAFO for right lower extremity. - acetaminophen (TYLENOL) 500 mg tablet Take 2 tablets by mouth every 8 hours as needed for Pain or Fever. - aspirin 81 mg chewable tablet Take 1 tablet by mouth once daily. - melatonin 3 mg tablet Take 1 tablet by mouth daily at bedtime. - calcium carbonate 600 mg-cholecalciferol 400 units (CALCIUM 600 + D) 600 mg(1,500mg) -400 unit tab Take 1 tablet by mouth twice daily. - metroNIDAZOLE 0.75 % cream Apply 1 application to affected area twice daily. 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, N13.8] 07/04/2007 Nephrolithiasis [N20.0] 07/04/2007 Duodenitis without mention of hemorrhage [K29.8*12/26/2008 09/05/2014 Acute gastritis without mention of hemorrhage [*12/26/2008 09/05/2014 Prostatocystitis [N41.3] 03/24/2009 08/13/2013 GERD (gastroesophageal reflux disease) [K21.9] 03/25/2009 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 Normal [employer] NM CARDIAC PERF STRESS/PHARM on 07-12-2022 NM CARDIAC PERF STRESS/PHARM * * *Final Report* * * DATE OF EXAM: Jul 12 2022 9:15AM YANNI 0006 - NM CARDIAC PERF STRESS/PHARM / PROCEDURE REASON: multiple diagnoses * * * * Physician Interpretation * * * * Stress Barking Machine Feeder Report: [facility] Date of service: 07/12/2022 7:34:31 AM Supervising physician: Bandar Brown DO PATIENT: Name: MR. JAVIER BOND Age: 81 years Gender: M The supervising physician was in the department and immediately available. Final ------ PATIENT: Name: MR. JAVIER BOND Age: 81 years Gender: M CONCLUSIONS: 1. SPECT Perfusion Study: Abnormal. 2. There is no scintigraphic evidence for inducible ischemia. 3. There is a large (>20%) fixed perfusion defect in the RCA territory. 4. Left ventricle is normal in size. The left ventricle systolic function is mildly decreased. 5. Right ventricle is normal in size. The right ventricle systolic function is mildly decreased. 6. This is an intermediate risk scan due to area of scar/ischemia. 7. Please refer below for a separate EKG stress test report. Gated Stress IR:3D LVEF % 45 Prior Study Comparison No prior nuclear cardiology exam available for comparison. Nuclear Med Report:1-Day Tc-Tetrofosmin Gated SPECT Myocardial Perfusion with Regadenoson Stress: Myocardial perfusion imaging was performed at rest 30 minutes following the IV injection of Tc-99m tetrofosmin. The patient received 0.4 mg of regadenoson, via rapid IV push, immediately followed by Tc-99m tetrofosmin IV. Gated post stress tomographic imaging was performed 30 to 60 minutes later. See administered doses below. [facility] Date of service: 07/12/2022 7:34:31 AM Ordering Physician: SOFIA WILDE. Requesting Physician: Indication: Pre-op noncardiac surgery, moderate risk Interpreting physician: Sheldon Walton MD Height: 180.34 cm BSA: 1.98 m? Weight: 78.47 kg BMI: 24.1 kg/m? Exam Type: Rest Stress Radiopharm: Tc-99m Tetrofosmin Tc-99m Tetrofosmin Dosage(mCi): 12.3 32.4 Atten Correction: not performed not performed Stress Agent: Regadenoson 0.4mg Supply provided from [facility] Resting Blood Press: 152/77 mmHg Image Quality The overall study imaging quality was deemed to be fair. FINDINGS: Left Ventricle Wall Motion: 1 - The inferior septum and entire inferior wall are hypokinetic. All remaining scored segments are normal. Stress IR:3D - Rest IR:3D - Gated Stress IR:3D - Reversibility - 1 Stress IR:3D Gated Stress IR:3D LVEF: 45 % ED Volume: 73 ml ES Volume: 40 ml TID: 0.88 Perfusion Findings Stress IR:3D - Summed Score=14 There is a moderate perfusion defect in the inferior septum, entire inferior wall, and apex. All remaining scored segments show normal perfusion. Rest IR:3D - Summed Score=14 There is a moderate perfusion defect in the inferior septum, entire inferior wall, and apex. All remaining scored segments show normal perfusion. Stress IR:3D Rest IR:3D Summed Score=14 Summed Score=14 LEFT VENTRICLE The left ventricle is normal in size. Left ventricular systolic function is mildly decreased. Right Ventricle The right ventricle is normal in size. Right ventricle systolic function is mildly decreased. Stress Test Findings: There is no scintigraphic evidence for inducible ischemia. Final ------ Stress ECG Report: [facility] Date of service: 07/12/2022 7:34:31 AM Ordering physician: SOFIA WILDE front office specialist: Cailin Baca Cutter Finisher: Belem Smith Interpreting physician: Bandar Brown DO Patient name: MR. JAVIER BOND Age: 81 years Gender: M Height: 180.34 cm BSA: 1.98 m? Weight: 78.47 kg BMI: 24.1 kg/m? Indication: Encounter for pre-procedural cardiovascular examination for non-cardiac surgery Stress ECG Conclusion: Conclusion: Normal Stress ECG Summary: The patient's resting heart rate was 81 bpm and blood pressure was 152/77 mmHg. The test was terminated due to end of protocol. Other symptoms during the test included SOB. The maximum heart rate was 97 bpm, which is 69% of the predicted heart rate for age. Peak blood pressure was 164/63 mmHg. The double product achieved was [id number]. Medications: Last Used PROTONIX HYDROCHLOROTHIAZIDE LASIX FLOMAX DESYREL LIPITOR ACCUPRIL ASPIRIN CALCIUM CARBONATE Resting ECG: Normal Sinus Rhythm and Multifocal PVCs Symptoms at rest: No symptoms Pharamcologic Protocol: Regadenoson Stress Exercise Table: +-----+--+---+---+ Stage HR SYS ULCA +-----+--+---+---+ 1 93 164 63 +-----+--+---+- (more content not included)... [facility] 07-09-2022 CNPN Telephone (CDLBME) JAVIER BOND ([id number]) 1940 M NFR Date Time Provider Department 07/09/22 [facility] During your visit today, we recorded the following information about you: Belem Smith RN 07/09/2022 2:06 PM Signed Spoke with patient's regarding reminder for stress test on Tuesday and given instructions Allergies As of Date: 07/09/2022 Noted Allergy Reaction CONTRAST DYE 03/24/2009 4 - Hives FINACEA (AZELAIC ACID) 09/28/2017 2 - Rash BACTRIM (SULFAMETHOXAZOLE-TRIM ETH*06/02/2005 16 - Unknown BEXTRA (VALDECOXIB) 06/02/2005 16 - Unknown CARDURA (DOXAZOSIN MESYLATE) 06/02/2005 16 - Unknown CIPROFLOXACIN 11/30/2002 16 - Unknown CYTOTEC (MISOPROSTOL) 06/02/2005 16 - Unknown FOSAMAX (ALENDRONATE SODIUM) 01/04/2020 11 - Vomiting Comments: heartburn, vomiting GABAPENTIN 01/28/2021 1 - Mental Status Change KEFLEX (CEPHALEXIN) 08/13/2013 2 - Rash KETOCONAZOLE 09/06/2008 16 - Unknown LEVOFLOXACIN 01/26/2012 14 - Other: See Comments Comments: Pseudomonas MOBIC (MELOXICAM) 06/02/2005 16 - Unknown NITROFURANTOIN 05/15/2021 14 - Other: See Comments Comments: Per , he didn't feel well - unsure of reaction NSAIDS (NON-STEROIDAL ANTI-INFLAM*11/30/2002 16 - Unknown Comments: GI UPSET RELAFEN (NABUMETONE) 06/02/2005 16 - Unknown TERBINAFINE 10/02/2009 8 - GI Upset Date Reviewed: 07/09/2022 Reviewed by: Brandi Messina APRN.TIME SIGNAL WIRER - Fully Assessed Reason for Visit: Reminder Call [[id number]] Prescriptions as of 07/09/2022 - atorvastatin (LIPITOR) 10 mg tablet Take 1 tablet by mouth daily at bedtime. For cholesterol. - pantoprazole DR (PROTONIX) 40 mg tablet Take 40 mg by mouth once daily. - hydroCHLOROthiazide (HYDRODIURIL, ESIDRIX) 12.5 mg tablet Take 1 tablet by mouth once daily. - furosemide (LASIX) 20 mg tablet Take 1 tablet by mouth once daily. - tamsulosin (FLOMAX) 0.4 mg Take 1 capsule by mouth once daily. - traZODone (DESYREL) 50 mg tablet Take 0.5 tablets by mouth once daily. - quinapril (ACCUPRIL) 5 mg tablet Take 1 tablet by mouth once daily. - doxycycline 20 mg tablet Take 20 mg by mouth twice daily. - finasteride (PROSCAR) 5 mg tablet Take 1 tablet by mouth once daily. - OTC PRODUCT Taking stool softner 250 mg daily - multivit-min/iron/foli c acid/K (ADULTS MULTIVITAMIN ORAL) Take by mouth as directed. - lactobacillus combination no.8 (ADULT PROBIOTIC ORAL) Take by mouth as directed. - MEDICAL SUPPLY KA for right lower extremity. - acetaminophen (TYLENOL) 500 mg tablet Take 2 tablets by mouth every 8 hours as needed for Pain or Fever. - aspirin 81 mg chewable tablet Take 1 tablet by mouth once daily. - melatonin 3 mg tablet Take 1 tablet by mouth daily at bedtime. - calcium carbonate 600 mg-cholecalciferol 400 units (CALCIUM 600 + D) 600 mg(1,500mg) -400 unit tab Take 1 tablet by mouth twice daily. - metroNIDAZOLE 0.75 % cream Apply 1 application to affected area twice daily. 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, N13.8] 07/04/2007 Nephrolithiasis [N20.0] 07/04/2007 Duodenitis without mention of hemorrhage [K29.8*12/26/2008 09/05/2014 Acute gastritis without mention of hemorrhage [*12/26/2008 09/05/2014 Prostatocystitis [N41.3] 03/24/2009 08/13/2013 GERD (gastroesophageal reflux disease) [K21.9] 03/25/2009 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] 06/29/2011 09/05/2014 Hydronephrosis, right [N13.30] 09/28/2011 09/05/2014 Right ureteral calculus [N20.1] 09/28/2011 09/05/2014 Lumbar degenerative disc disease [M51.36] 09/14/2012 Epidermal cyst [L72.0] 03/28/2013 09/05/2014 Episodic cluster headache, not intractable [G44*09/09/2015 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 [I73.00] 09/09/2015 Rosacea [L71.9] 09/09/2015 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] 09/29/2016 09/28/2017 ED (erectile dysfunction) of organic origin [N5*09/28/2017 Spondylosis of lumbar region without myelopathy*03/10/2018 Other idiopathic scoliosis, lumbar region [M41.*03/10/2018 Primary osteoarthritis of both first carpometac*05/04/2018 Situational anxiety [F41.8] 06/27/2019 Ilioinguinal neuralgia of left side [G57.92] 09/27/2019 History of compression fracture of spine [Z87.8*11/05/2019 Osteoporosis [M81.0] 01/28/2020 Hypercalciuria, idiopathic [R82.994] 02/11/2020 Lumbar radiculopathy [M54.16] 07/03/2020 Chronic constipation [K59.09] 12/03/2020 Thyroid nodul (more content not included)... Normal [facility] SIX MINUTE WALKon 07-02-2022 [facility] CNOVon 06-23-2022 CNOV Office Visit (FVTHOR ) JAVIER BOND ([id number]) 1940 M NFR Date Time Provider Department 06/23/22 10:30 AM [facility] During your visit today, we recorded the following information about you: Temperature Pulse Blood pressure Weight 97.5 degrees 85/minute 150/76 79 kg Height 1.829 m Sofia Wilde MD 06/24/2022 8:57 AM Signed REASON FOR EVALUATION: Zenker's diverticulum. HPI: Javier Bond is a very pleasant 81-year old gentleman who has been diagnosed with a Zenker's diverticulum. The patient complains of regurgitation, constantly having to ' clear his throat ' and dysphagia. The patient also has a hiatal hernia. He is referred to discuss diverticulectomy and esophagomyotomy today. ALLERGIES: No known drug allergies MEDICATIONS: Current Outpatient Medications on File Prior to Visit Medication Sig hydroCHLOROthiazide (HYDRODIURIL, ESIDRIX) 12.5 mg tablet Take 1 tablet by mouth once daily. furosemide (LASIX) 20 mg tablet Take 1 tablet by mouth once daily. tamsulosin (FLOMAX) 0.4 mg Take 1 capsule by mouth once daily. traZODone (DESYREL) 50 mg tablet Take 0.5 tablets by mouth once daily. atorvastatin (LIPITOR) 10 mg tablet Take 1 tablet by mouth daily at bedtime. For cholesterol. quinapril (ACCUPRIL) 5 mg tablet Take 1 tablet by mouth once daily. doxycycline 20 mg tablet Take 20 mg by mouth twice daily. finasteride (PROSCAR) 5 mg tablet Take 1 tablet by mouth once daily. OTC PRODUCT Taking stool softner 250 mg daily multivit-min/iron/foli c acid/K (ADULTS MULTIVITAMIN ORAL) Take by mouth as directed. lactobacillus combination no.8 (ADULT PROBIOTIC ORAL) Take by mouth as directed. MEDICAL SUPPLY KAFO for right lower extremity. (Patient not taking: Reported on 03/15/2022 ) acetaminophen (TYLENOL) 500 mg tablet Take 2 tablets by mouth every 8 hours as needed for Pain or Fever. aspirin 81 mg chewable tablet Take 1 tablet by mouth once daily. melatonin 3 mg tablet Take 1 tablet by mouth daily at bedtime. (Patient not taking: Reported on 03/15/2022 ) calcium carbonate 600 mg-cholecalciferol 400 units (CALCIUM 600 + D) 600 mg(1,500mg) -400 unit tab Take 1 tablet by mouth twice daily. metroNIDAZOLE 0.75 % cream Apply 1 application to affected area twice daily. No current facility-administered medications on file prior to visit. PAST MEDICAL HISTORY: HISTORIES 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 Chronic constipation 12/03/2020 Compression fracture of third lumbar vertebra (HCC) 11/05/2019 Degenerative lumbar spinal stenosis 12/15/2020 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/28/2017 Elevated blood sugar 08/31/2021 Episodic cluster headache, not intractable 09/09/2015 Essential hypertension, benign Family history of malignant neoplasm of gastrointestinal tract GERD (gastroesophageal reflux disease) 03/25/2009 History of compression fracture of spine 11/05/2019 Hypercalciuria, idiopathic 02/11/2020 Hypertrophy of prostate without urinary obstruction and other lower urinary tract symptoms (LUTS) Ilioinguinal neuralgia of left side 09/27/2019 Internal hemorrhoids without mention of complication Lumbar degenerative disc disease 09/14/2012 Lumbar radiculopathy 07/03/2020 Medicare annual wellness visit, subsequent 09/10/2021 Medicare Part B: Not able to find Last done: 09/10/2021 Nephrolithiasis 07/04/2007 Osteoporosis 01/28/2020 Other specified anemias 03/16/2022 Acute blood loss 11/2020 (post surgery) Primary osteoarthritis of both first carpometacarpal joints 05/04/2018 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 09/09/2015 Rosacea 09/09/2015 S/P lumbar spinal fusion 12/15/2020 Sepsis due to Gram-negative organism with septic shock (HCC) 12/17/2020 Proteus mirabilis UTI Situational anxiety 06/27/2019 Situational depression 02/27/2021 Spondylosis of lumbar region without myelopathy or radiculopathy 03/10/2018 Thyroid nodule 12/03/[address] Zacarias PAST SURGICAL HISTORY Procedure Laterality Date ARTHRP INTERPOS INTERCARPAL/METACARPAL JOINTS Left 05/24/2018 Left thumb CMC arthroplasty with LRTI and MCP pinning of left thumb COLONOSCOPY FLX DX W/COLLJ SPEC WHEN PFRMD 07/17/08, 2012 COLONOSCOPY FLX DX W/COLLJ SPEC WHEN PFRMD 03/28/2019 [facility] CYSTO.PANENDO 02/20/2021 stent removal EGD TRANSORAL BIOPSY SINGLE/MULTIPLE 12/26/08 ESOPHAGOGASTRODUODENOS COPY TRANSORAL DIAGNOSTIC 03/18/2020 EGD EXCISION OF CYST squamous cell on head LAP, REVISION DEMETRIO FUNDOPLASTY 03/11/2009 hiatal hernia LAPAROSCOPY SURG CHOLECYSTECTOMY 03/11/09 LITHOTRIPSY XTRCORP SHOCK WAVE 1982,12/07/2006, 2011 NEPHROLITHOTOMY REMOVAL STAGE 1 Right (more content not included)... Normal [employer] Absolute lymphocyte counton 05-03-2022 Lymphocytes Auto (Unsp spec) [#/Vol] 1.77 10*3/uL 0.83-4.51 [facility] Work Phone: [phone] Basophil percentageon 2021 Basophils/100 WBC (Bld) 0.7 % 0-1 [facility] Work Phone: Chloride [Moles/Vol] 104 mmol/L 98-107 [facility] Work [facility]: Eosinophils/100 WBC (Bld) 3.7 % 0-5 [facility] Work Phone: Glucose [Mass/Vol] 102 mg/dL 74-106 [facility] Work Phone: [phone] Comment on above: Fasting Glucose resu lt from 100 to 125 mg/dL suggests IMPAIRED HOMEOSTASIS per A.D.A. criteria. Neutrophils (Bld) [#/Vol] 1.7 10*3/uL 2.0-7.7 [facility] Work Phone: Neutrophils/100 WBC (Bld) 41.1 % 47-70 [facility] Work Phone: Potassium [Moles/Vol] 3.6 mmol/L 3.5-5.1 [facility] Work Phone: Sodium [Moles/Vol] 140 mmol/L 136-145 [facility] Work Phone: WBC (Bld) [#/Vol] 4.1 10*3/uL 4.4-11.0 [facility] Work Phone: [phone] Blood erythrocytes count (nu mber/volume)on 05-03-2022 RBC (Bld) [#/Vol] 4.30 10*6/uL 4.6-6.2 [facility] Work Phone: Blood hemoglobin measurement (mass/volume)on 05-03-2022 Hemoglobin (Bld) [Mass/Vol] 13.1 g/dL 13.0-16.5 [facility] Work Phone: Blood lymphocytes/100 leukoc yteson 05-03-2022 Lymphocytes/100 WBC (Bld) 43.3 % 19-41 [facility] Work Phone: Blood monocytes/100 leukocyt eson 05-03-2022 Monocytes/100 WBC (Bld) 11.0 % 0-10 [facility] Work Phone: [phone] Blood platelet mean volumeon 05-03-2022 Platelet mean volume (Bld) [Entitic vol] 9.7 fL 6.2-12.0 [facility] Work Phone: [phone] Determination of erythrocyte mean corpuscular volume (MCV)on 05-03-2022 MCV (RBC) [Entitic vol] 94.0 fL 80-94 [facility] Work Phone: Hematocrit Auto (Bld) [Volum e fraction]on 05-03-2022 Hematocrit (Bld) [Volume fraction] 40.4 % 40-54 [facility] Work Phone: Laboratory - Chemistry and C hemistry - challengeon 05-03-2022 CO2 [Moles/Vol] 30.0 mmol/L 21.0-32.0 [facility] Work Phone: Natriuretic peptide B (Bld) [Mass/Vol] 26.5 pg/mL 0-100 [facility] Work Phone: Urea nitrogen/Creatinine [Mass ratio] 25.0 mg/mg 10-20 [facility] Work Phone: Laboratory - Hematology and Cell countson 05-03-2022 Erythrocyte distribution width (RBC) [Entitic vol] 43.8 fL 35.1-43.9 [facility] Work Phone: Erythrocyte distribution width (RBC) [Ratio] 12.8 % 11.6-14.6 [facility] Work Phone: Immature granulocytes/100 WBC (Bld) 0.200 % 0.0-0.9 [facility] Work Phone: Comment on above: IG% - Immature Granu locytes (promyelocytes, myelocytes and metamyelocytes) > 1% indicates that a LEFT SHIFT is Present. MCH (RBC) [Entitic mass] 30.5 pg 27.0-32.0 [facility] Work Phone: Nucleated RBC/100 WBC (Bld) [Ratio] 0 % 0-5 [facility] Work Phone: MCHC Auto (RBC) [Mass/Vol]on 05-03-2022 MCHC (RBC) [Mass/Vol] 32.4 g/dL 32-36 [facility] Work Phone: No Panel Informationon 05-03 Estimated Creatinine Clearance Calc 76.92 ml/min [facility] Work Phone: Estimated GFR (MDRD) Amer 107 mL/min >60 [facility] Work Phone: Comment on above: GFR Calc Estimated GFR (MDRD) Non-Af Amer 89 mL/min >60 [facility] Work Phone: Comment on above: Non- GFR Calc Platelets bldon 05-03-2022 Platelets (Bld) [#/Vol] 173 10*3/uL 150-450 [facility] Work Phone: Serum or plasma calcium shon urement (mass/volume)on 05-03-2022 Calcium [Mass/Vol] 8.9 mg/dL 8.5-10.1 [facility] Work Phone: Serum or plasma creatinine m easurement (mass/volume)on 05-03-2022 Creatinine [Mass/Vol] 0.88 mg/dL 0.70-1.30 [facility] Work Phone: Comment on above: The validity of the calculated GFR & GFRAA in patients over 70 years has not been determined. Clinical correlation is essential. Serum or plasma urea nitroge n measurement (mass/volume)on 05-03-2022 Urea nitrogen [Mass/Vol] 22 mg/dL 7-18 [facility] Work Phone: Thin prep Papanicolaou smear with manual screeningon 05-03-2022 Thin prep Papanicolaou smear with manual screening 6 5-15 [facility] Work Phone: UA DIP, URINE (POC)on 2021 BILIRUBIN UA (POCT) Negative Negative [facility] CLARITY UA (POCT) Slightly Cloudy Cl [facility] COLOR UA (POCT) Yellow [facility] GLUCOSE UA (POCT) Negative Negative mg/dL [facility] HEMOGLOBIN/BLOOD UA (POCT) Negative Negative [facility] KETONE UA (POCT) Negative Negative mg/dL [facility] LEUKOCYTES UA (POCT) Moderate Abnormal Negative [facility] NITRITE UA (POCT) Negative Negative [facility] PH UA (POCT) 6.5 4.5 - 8.0 [facility] Protein Ql (U) Negative Negative mg/dL [facility] SPECIFIC GRAVITY UA (POCT) 1.015 1.005 - 1.030 [facility] UROBILINOGEN UA (POCT) 0.2 E.U./dL [place] E.U./dL [facility] CT ABD/PEL W IVCONon 01-08-2 022 [facility] XR Pelvis APon 01-01-2022 IMPRESSION: Limited visualization of the bony pelvic ring especially due to overlying gas and fecal residue. No obvious displaced fracture noted. Left superior and inferior pubic rami are not well identified and subtle nondisplaced fracture cannot be excluded. 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: PSCB Transcribe Date/Time: Jan 01 2022 8:05P Dictated by : IVÁN ROMAN MD This examination was interpreted and the report reviewed and electronically signed by: IVÁN ROMAN MD on Jan 01 2022 8:12PM [facility] DIVISION OF RADIOLOGY * * *Final Report* * * DATE OF EXAM: Jan 01 2022 5:07PM [id number] - XR PELVIS 1V AP / PROCEDURE REASON: Pain in pelvis * * * * Physician Interpretation * * * * EXAMINATION: XR PELVIS 1V AP HISTORY: Pelvic pain without injury TECHNIQUE: XR PELVIS 1V AP Laterality: NOT APPLICABLE Number of different views (projections): 1 M: XB_1 COMPARISON: There are no prior pelvic studies for comparison. Comparison is made to prior abdomen series from 02/20/2021 LIMITATIONS: Evaluation of the integrity of the bony pelvic ring is limited due to patient positioning, rotation, overlying artifact and obscuration by gas and fecal residue. RESULT: Within the limits of the examination the bony pelvic ring appears intact. There are no obvious displaced fractures. The left superior and inferior pubic rami are obscured by overlying gas and fecal residue and subtle nondisplaced fracture cannot be excluded especially at the superior ramus.. No obvious displaced fracture is apparent. SI joints are patent and the sacrum appears intact within limits of obscuration by gas and fecal residue.. Lucency about the tips of the bilateral sacral pedicle screws are unchanged from 2020 and consistent with mild loosening. No other significant abnormality. DIVISION OF RADIOLOGY Provider, [facility] - 01/01/2022 * * *Final Report* * * DATE OF EXAM: Jan 01 2022 5:07PM WOX [id number] - XR PELVIS 1V AP / PROCEDURE REASON: Pain in pelvis * * * * Physician Interpretation * * * * EXAMINATION: XR PELVIS 1V AP HISTORY: Pelvic pain without injury TECHNIQUE: XR PELVIS 1V AP Laterality: NOT APPLICABLE Number of different views (projections): 1 M: XB_1 COMPARISON: There are no prior pelvic studies for comparison. Comparison is made to prior abdomen series from 02/20/2021 LIMITATIONS: Evaluation of the integrity of the bony pelvic ring is limited due to patient positioning, rotation, overlying artifact and obscuration by gas and fecal residue. RESULT: Within the limits of the examination the bony pelvic ring appears intact. There are no obvious displaced fractures. The left superior and inferior pubic rami are obscured by overlying gas and fecal residue and subtle nondisplaced fracture cannot be excluded especially at the superior ramus.. No obvious displaced fracture is apparent. SI joints are patent and the sacrum appears intact within limits of obscuration by gas and fecal residue.. Lucency about the tips of the bilateral sacral pedicle screws are unchanged from 2020 and consistent with mild loosening. No other significant abnormality. IMPRESSION IMPRESSION: Limited visualization of the bony pelvic ring especially due to overlying gas and fecal residue. No obvious displaced fracture noted. Left superior and inferior pubic rami are not well identified and subtle nondisplaced fracture cannot be excluded. 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: PSCB Transcribe Date/Time: Jan 01 2022 8:05P Dictated by : IVÁN ROMAN MD This examination was interpreted and the report reviewed and electronically signed by: IVÁN ROMAN MD on Jan 01 2022 8:12PM EST [facility] Radiology Study observation (narrative) [facility] XR Pelvis APOrdered By: [facility] Provider on 01-01-2022 [facility] No Panel Information SARS-CoV-2 & FLU Antigen (Rapid) [facility] Work Phone: Vital Signs Date Time Vital Sign Value Performing Clinician Angeliai marycruz 04-17-2025 12:29-0400 Body temperature 98.9 [degF] Dr. Francisco Bahena MD Work Phone: [facility] 04-17-2025 12:29-0400 Diastolic blood pressure 68 mm[Hg] Dr. Francisco Bahena MD Work Phone: [facility] 04-17-2025 12:29-0400 Heart rate 67 /min Dr. Francisco Bahena MD Work Phone: 0(052)391-211882 [place] [address] 04-17-2025 12:29-0400 Respiratory rate 18 /min Dr. Francisco Bahena MD Work Phone: 3(453)873-498282 [place] [address] 04-17-2025 12:29-0400 SaO2% (BldA) [Mass fraction] 98 % Dr. Francisco Bahena MD Work Phone: 6(864)386-838382 [place] [address] 04-17-2025 12:29-0400 Systolic blood pressure 131 mm[Hg] Dr. Francisco Bahena MD Work Phone: 0(244)323-706582 [place] [address] 04-13-2025 16:26-0400 Body height 172.[address] Francisco Bahena MD Work Phone: 5(920)799-605782 [place] [address] 04-13-2025 16:26-0400 Body weight 69.[address] Francisco Bahena MD Work Phone: 3(428)511-429482 [place] [address] 04-12-2025 17:34-0400 Body mass index (BMI) [Ratio] 23.4 kg/m2 Dr. Francisco Bahena MD Work Phone: 4(501)107-111382 [place] [address] 04-12-2025 17:06-0400 Body temperature 97.8 [degF] Dr. Francisco Bahena MD Work Phone: 9(100)836-053382 [place] [address] 04-12-2025 17:06-0400 Diastolic blood pressure 72 mm[Hg] Dr. Francisco Bahena MD Work Phone: 7(635)890-110782 [place] [address] 04-12-2025 17:06-0400 Heart rate 75 /min Dr. Francisco Bahena MD Work Phone: 3(767)134-445382 [place] [address] 04-12-2025 17:06-0400 Respiratory rate 18 /min Dr. Francisco Bahena MD Work Phone: 6(818)485-193082 [place] [address] 04-12-2025 17:06-0400 SaO2% (BldA) [Mass fraction] 96 % Dr. Francisco Bahena MD Work Phone: 6(687)433-048582 [place] [address] 04-12-2025 17:06-0400 Systolic blood pressure 145 mm[Hg] Dr. Francisco Bahena MD Work Phone: [facility] 04-12-2025 14:31-0400 Body height 172.[address] Francisco Bahena MD Work Phone: [facility] 04-12-2025 14:31-0400 Body mass index (BMI) [Ratio] 23.7 kg/m2 Dr. Francisco Bahena MD Work Phone: [facility] 04-12-2025 14:31-0400 Body weight 70.[address] Francisco Bahena MD Work Phone: [facility] 04-05-2025 12:23-0400 Diastolic blood pressure 58 mm[Hg] Sara Dahlhausen PRODUCTION ENGINEER TRACK.TIME SIGNAL WIRER Work Phone: [facility] 04-05-2025 12:23-0400 Heart rate 58 /min Sara Dahlhausen PRODUCTION ENGINEER TRACK.TIME SIGNAL WIRER Work Phone: [facility] 04-05-2025 12:23-0400 SaO2% (BldA) [Mass fraction] 98 % Sara Dahlhausen PRODUCTION ENGINEER TRACK.TIME SIGNAL WIRER Work Phone: [facility] 04-05-2025 12:23-0400 Systolic blood pressure 131 mm[Hg] Sara Dahlhausen PRODUCTION ENGINEER TRACK.TIME SIGNAL WIRER Work Phone: [facility] 02-22-2025 15:06-0400 Diastolic blood pressure 79 mm[Hg] Amudha Pazhanisamy DO Work Phone: [facility] 02-22-2025 15:06-0400 Heart rate 69 /min Amudha Pazhanisamy DO Work Phone: [facility] 02-22-2025 15:06-0400 Respiratory rate 22 /min Amudha Pazhanisamy DO Work Phone: [facility] 02-22-2025 15:06-0400 SaO2% (BldA) [Mass fraction] 99 % Amudha Pazhanisamy DO Work Phone: [facility] 02-22-2025 15:06-0400 Systolic blood pressure 119 mm[Hg] Gertrudis Carrillo DO Work Phone: [facility] 01-29-2025 22:52-0400 Body temperature 98.5 [degF] Dr. Francisco Bahena MD Work Phone: [facility] 01-29-2025 22:52-0400 Diastolic blood pressure 75 mm[Hg] Dr. Francisco Bahena MD Work Phone: [facility] 01-29-2025 22:52-0400 Heart rate 72 /min Dr. Francisco Bahena MD Work Phone: [facility] 01-29-2025 22:52-0400 Respiratory rate 16 /min Dr. Francisco Bahena MD Work Phone: [facility] 01-29-2025 22:52-0400 SaO2% (BldA) [Mass fraction] 100 % Dr. Francisco Bahena MD Work Phone: [facility] 01-29-2025 22:52-0400 Systolic blood pressure 142 mm[Hg] Dr. Francisco Bahena MD Work Phone: [facility] 01-29-2025 20:27-0400 Body height 172.[address] Francisco Bahena MD Work Phone: [facility] 01-29-2025 20:27-0400 Body mass index (BMI) [Ratio] 25.4 kg/m2 Dr. Francisco Bahena MD Work Phone: [facility] 01-29-2025 20:27-0400 Body weight 75.[address] Francisco Bahena MD Work Phone: [facility] 01-21-2025 12:54-0400 Body mass index (BMI) [Ratio] 22.73 kg/m2 Francisco Bahena MD Work Phone: [facility] 01-21-2025 12:54-0400 Body weight 73.94 kg Francisco Bahena MD Work Phone: [facility] 01-21-2025 12:54-0400 Diastolic blood pressure 64 mm[Hg] Francisco Bahena MD Work Phone: [facility] 01-21-2025 12:54-0400 Heart rate 68 /min Francisco Bahena MD Work Phone: [facility] 01-21-2025 12:54-0400 Respiratory rate 16 /min Francisco Bahena MD Work Phone: [facility] 01-21-2025 12:54-0400 SaO2% (BldA) [Mass fraction] 98 % Francisco Bahena MD Work Phone: [facility] 01-21-2025 12:54-0400 Systolic blood pressure 112 mm[Hg] Francisco Bahena MD Work Phone: [facility] 01-10-2025 16:00-0400 Body temperature 98 [degF] Dr. Francisco Bahena MD Work Phone: [facility] 01-10-2025 16:00-0400 Diastolic blood pressure 65 mm[Hg] Dr. Francisco Bahena MD Work Phone: [facility] 01-10-2025 16:00-0400 Heart rate 72 /min Dr. Francisco Bahena MD Work Phone: [facility] 01-10-2025 16:00-0400 SaO2% (BldA) [Mass fraction] 98 % Dr. Francisco Bahena MD Work Phone: [facility] 01-10-2025 16:00-0400 Systolic blood pressure 122 mm[Hg] Dr. Francisco Bahena MD Work Phone: [facility] 01-10-2025 10:30-0400 Body temperature 97.4 [degF] Dr. Francisco Bahena MD Work Phone: [facility] 01-10-2025 10:30-0400 Diastolic blood pressure 54 mm[Hg] Dr. Francisco Bahena MD Work Phone: 7(243)346-026982 [place] [address] 01-10-2025 10:30-0400 Heart rate 80 /min Dr. Francisco Bahena MD Work Phone: 1(672)401-963782 [place] [address] 01-10-2025 10:30-0400 Respiratory rate 16 /min Dr. Francisco Bahena MD Work Phone: 0(194)063-117982 [place] [address] 01-10-2025 10:30-0400 SaO2% (BldA) [Mass fraction] 100 % Dr. Francisco Bahena MD Work Phone: 7(609)642-811082 [place] [address] 01-10-2025 10:30-0400 Systolic blood pressure 102 mm[Hg] Dr. Francisco Bahena MD Work Phone: 5(014)315-284982 [place] [address] 01-10-2025 02:53-0400 Body mass index (BMI) [Ratio] 24.7 kg/m2 Dr. Francisco Bahena MD Work Phone: 6(678)593-132382 [place] [address] 01-10-2025 02:53-0400 Body weight [address] Francisco Bahena MD Work Phone: 8(425)367-419982 [place] [address] 01-09-2025 11:00-0400 Body height 172.[address] Francisco Bahena MD Work Phone: 3(968)752-365182 [place] [address] 01-08-2025 19:03-0400 Body temperature 98.6 [degF] Dr. Francisco Bahena MD Work Phone: 0(043)961-814882 [place] [address] 01-08-2025 19:03-0400 Diastolic blood pressure 83 mm[Hg] Dr. Francisco Bahena MD Work Phone: 4(773)452-759482 [place] [address] 01-08-2025 19:03-0400 Heart rate 58 /min Dr. Francisco Bahena MD Work Phone: 2(468)132-158982 [place] [address] 01-08-2025 19:03-0400 Respiratory rate 16 /min Dr. Francisco Bahena MD Work Phone: 7(180)670-051082 [place] [address] 01-08-2025 19:03-0400 SaO2% (BldA) [Mass fraction] 99 % Dr. Francisco Bahena MD Work Phone: [facility] 01-08-2025 19:03-0400 Systolic blood pressure 106 mm[Hg] Dr. Francisco Bahena MD Work Phone: [facility] 01-08-2025 10:35-0400 Body height 180.[address] Francisco Bahnea MD Work Phone: [facility] 01-08-2025 10:35-0400 Body mass index (BMI) [Ratio] 22.6 kg/m2 Dr. Francisco Bahena MD Work Phone: [facility] 01-08-2025 10:35-0400 Body weight 73.[address] Francisco Bahena MD Work Phone: [facility] 12-31-2024 14:05-0400 Body mass index (BMI) [Ratio] 22.45 kg/m2 Francisco Bahena MD Work Phone: [facility] 12-31-2024 14:05-0400 Body weight 73.03 kg Francisco Bahena MD Work Phone: [facility] 12-31-2024 14:05-0400 Diastolic blood pressure 80 mm[Hg] Francisco Bahena MD Work Phone: [facility] 12-31-2024 14:05-0400 Heart rate 62 /min Francisco Bahena MD Work Phone: [facility] 12-31-2024 14:05-0400 Respiratory rate 18 /min Francisco Bahena MD Work Phone: [facility] 12-31-2024 14:05-0400 SaO2% (BldA) [Mass fraction] 100 % Francisco Bahena MD Work Phone: [facility] 12-31-2024 14:05-0400 Systolic blood pressure 118 mm[Hg] Francisco Bahena MD Work Phone: [facility] 12-14-2024 13:03-0400 Body mass index (BMI) [Ratio] 22.11 kg/m2 Riaz Williamson Work Phone: [facility] 12-14-2024 13:03-0400 Body temperature 97.39 [degF] Riaz Williamson Work Phone: [facility] 12-14-2024 13:03-0400 Body weight 71.89 kg Riaz Williamson Work Phone: [facility] 12-14-2024 13:03-0400 Diastolic blood pressure 58 mm[Hg] Riaz Williamson Work Phone: [facility] 12-14-2024 13:03-0400 Heart rate 66 /min Riaz Williamson Work Phone: [facility] 12-14-2024 13:03-0400 SaO2% (BldA) [Mass fraction] 100 % Riaz Williamson Work Phone: [facility] 12-14-2024 13:03-0400 Systolic blood pressure 109 mm[Hg] Riaz Williamson Work Phone: [facility] 11-10-2024 13:15-0500 Body mass index (BMI) [Ratio] 21.83 kg/m2 Francisco Bahena MD Work Phone: [facility] 11-10-2024 13:15-0500 Body temperature 97.5 [degF] Francisco Bahena MD Work Phone: [facility] 11-10-2024 13:15-0500 Body weight 70.99 kg Francisco Bahena MD Work Phone: [facility] 11-10-2024 13:15-0500 Diastolic blood pressure 62 mm[Hg] Francisco Bahena MD Work Phone: [facility] 11-10-2024 13:15-0500 Heart rate 70 /min Francisco Bahena MD Work Phone: [facility] 11-10-2024 13:15-0500 Respiratory rate 16 /min Francisco Bahena MD Work Phone: [facility] 11-10-2024 13:15-0500 SaO2% (BldA) [Mass fraction] 98 % Francisco Bahena MD Work Phone: [facility] 11-10-2024 13:15-0500 Systolic blood pressure 100 mm[Hg] Francisco Bahena MD Work Phone: [facility] 11-02-2024 14:51-0500 Body temperature 98.8 [degF] Treatment Wstr Work Phone: [facility] 11-02-2024 14:51-0500 Diastolic blood pressure 62 mm[Hg] Treatment [facility]str Work Phone: [facility] 11-02-2024 14:51-0500 Heart rate 78 /min Treatment [facility]str Work Phone: [facility] 11-02-2024 14:51-0500 Respiratory rate 18 /min Treatment [facility] Work Phone: [facility] 11-02-2024 14:51-0500 SaO2% (BldA) [Mass fraction] 99 % [facility] Work Phone: [facility] 11-02-2024 14:51-0500 Systolic blood pressure 133 mm[Hg] Treatment [facility]str Work Phone: [facility] 10-31-2024 14:00-0500 Body temperature 97.2 [degF] Treatment [facility]str Work Phone: [facility] 10-31-2024 14:00-0500 Diastolic blood pressure 63 mm[Hg] Treatment [facility]str Work Phone: [facility] 10-31-2024 14:00-0500 Heart rate 65 /min Treatment [facility]str Work Phone: [facility] 10-31-2024 14:00-0500 Systolic blood pressure 122 mm[Hg] Treatment Wstr Work Phone: [facility] 10-29-2024 14:00-0500 Body temperature 98.4 [degF] Treatment [facility]str Work Phone: [facility] 10-29-2024 14:00-0500 Diastolic blood pressure 54 mm[Hg] Treatment [facility]str Work Phone: 5(018)793-718005 [place] [address] 10-29-2024 14:00-0500 Heart rate 81 /min Treatment [facility]str Work Phone: [facility] 10-29-2024 14:00-0500 Respiratory rate 16 /min Treatment [facility]str Work Phone: [facility] 10-29-2024 14:00-0500 SaO2% (BldA) [Mass fraction] 96 % [facility] Work Phone: [facility] 10-29-2024 14:00-0500 Systolic blood pressure 124 mm[Hg] [facility] Work Phone: 6(453)214-985130 [place] [address] 10-25-2024 14:59-0500 Body temperature 98.4 [degF] [facility] Work Phone: 8(107)157-524330 [place] [address] 10-25-2024 14:59-0500 Diastolic blood pressure 66 mm[Hg] [facility] Work Phone: 3(919)479-321530 [place] [address] 10-25-2024 14:59-0500 Heart rate 82 /min [facility] Work Phone: 7(942)208-712630 [place] [address] 10-25-2024 14:59-0500 Respiratory rate 18 /min [facility] Work Phone: 9(246)104-834430 [place] [address] 10-25-2024 14:59-0500 SaO2% (BldA) [Mass fraction] 94 % [facility] Work Phone: 9(492)987-176530 [place] [address] 10-25-2024 14:59-0500 Systolic blood pressure 123 mm[Hg] [facility] Work Phone: 4(270)010-505130 [place] [address] 10-23-2024 15:50-0500 Diastolic blood pressure 78 mm[Hg] [facility] Work Phone: 6(324)980-735230 [place] [address] 10-23-2024 15:50-0500 Systolic blood pressure 122 mm[Hg] [facility] Work Phone: 6(596)279-173530 [place] [address] 10-23-2024 15:15-0500 Body temperature 98.01 [degF] [facility] Work Phone: 2(869)963-843530 [place] [address] 10-23-2024 15:15-0500 Heart rate 74 /min Treatment [facility]str Work Phone: [facility] 10-23-2024 15:15-0500 Respiratory rate 22 /min Treatment [facility]str Work Phone: [facility] 10-23-2024 15:15-0500 SaO2% (BldA) [Mass fraction] 100 % [facility] Work Phone: [facility] 10-18-2024 12:56-0500 Body mass index (BMI) [Ratio] 22.18 kg/m2 Cherelle Benavides PA-C Work Phone: [facility] 10-18-2024 12:56-0500 Body temperature 97.59 [degF] Cherelle Benavides PA-C Work Phone: [facility] 10-18-2024 12:56-0500 Body weight 72.12 kg Cherelle Benavides PA-C Work Phone: [facility] 10-18-2024 12:56-0500 Diastolic blood pressure 80 mm[Hg] Cherelle Benavides PA-C Work Phone: [facility] 10-18-2024 12:56-0500 Heart rate 73 /min Cherelle Benavides PA-C Work Phone: [facility] 10-18-2024 12:56-0500 Respiratory rate 16 /min Cherelle Benavides PA-C Work Phone: [facility] 10-18-2024 12:56-0500 SaO2% (BldA) [Mass fraction] 100 % Cherelle Benavides PA-C Work Phone: [facility] 10-18-2024 12:56-0500 Systolic blood pressure 110 mm[Hg] Cherelle Benavides PA-C Work Phone: [facility] 10-16-2024 09:58-0500 Body height 180.3 cm Riaz Williamson Work Phone: [facility] 10-16-2024 09:58-0500 Body mass index (BMI) [Ratio] 22.73 kg/m2 Riaz Williamson Work Phone: [facility] 10-16-2024 09:58-0500 Body temperature 97.11 [degF] Riaz Williamson Work Phone: [facility] 10-16-2024 09:58-0500 Body weight 73.94 kg Riaz Williamson Work Phone: [facility] 10-16-2024 09:58-0500 Diastolic blood pressure 61 mm[Hg] Riaz Williamson Work Phone: [facility] 10-16-2024 09:58-0500 Heart rate 66 /min Riaz Williamson Work Phone: [facility] 10-16-2024 09:58-0500 SaO2% (BldA) [Mass fraction] 94 % Riaz Williamson Work Phone: [facility] 10-16-2024 09:58-0500 Systolic blood pressure 112 mm[Hg] Riaz Williamson Work Phone: [facility] 10-10-2024 08:14-0500 Body mass index (BMI) [Ratio] 21.27 kg/m2 Francisco Bahena MD Work Phone: [facility] 10-10-2024 08:14-0500 Body temperature 97.81 [degF] Francisco Bahena MD Work Phone: [facility] 10-10-2024 08:14-0500 Body weight 72.12 kg Francisco Bahena MD Work Phone: [facility] 10-10-2024 08:14-0500 Diastolic blood pressure 60 mm[Hg] Francisco Bahena MD Work Phone: [facility] 10-10-2024 08:14-0500 Heart rate 60 /min Francisco Bahena MD Work Phone: [facility] 10-10-2024 08:14-0500 Respiratory rate 16 /min Francisco Bahena MD Work Phone: [facility] 10-10-2024 08:14-0500 SaO2% (BldA) [Mass fraction] 100 % Francisco Bahena MD Work Phone: [facility] 10-10-2024 08:14-0500 Systolic blood pressure 118 mm[Hg] Francisco Bahena MD Work Phone: [facility] 09-21-2024 15:11-0500 Body mass index (BMI) [Ratio] 20.79 kg/m2 Quinten Yu Jr., MD Work Phone: [facility] 09-21-2024 15:11-0500 Body weight 70.49 kg Quinten Yu Jr., MD Work Phone: [facility] 09-21-2024 15:11-0500 Diastolic blood pressure 59 mm[Hg] Quinten Yu Jr., MD Work Phone: [facility] 09-21-2024 15:11-0500 Heart rate 74 /min Quinten Yu Jr., MD Work Phone: [facility] 09-21-2024 15:11-0500 SaO2% (BldA) [Mass fraction] 100 % Quinten Yu Jr., MD Work Phone: [facility] 09-21-2024 15:11-0500 Systolic blood pressure 105 mm[Hg] Quinten Yu Jr., MD Work Phone: [facility] 07-23-2024 14:00-0400 Heart rate 73 /min Laurel Chavez PT [facility] 07-23-2024 14:00-0400 SaO2% (BldA) [Mass fraction] 99 % Laurel Chavez PT [facility] 06-26-2024 13:43-0400 Body mass index (BMI) [Ratio] 21.27 kg/m2 Belem Nuñez PA-C Work Phone: [facility] 06-26-2024 13:43-0400 Body weight 72.12 kg Belem Nuñez PA-C Work Phone: [facility] 06-26-2024 13:43-0400 Diastolic blood pressure 60 mm[Hg] Belem FERGUSON-Zo Work Phone: [facility] 06-26-2024 13:43-0400 Heart rate 80 /min Belem Hunter PA-C Work Phone: [facility] 06-26-2024 13:43-0400 Respiratory rate 16 /min Belem Hunter PA-C Work Phone: [facility] 06-26-2024 13:43-0400 SaO2% (BldA) [Mass fraction] 100 % Belem Hunter PA-C Work Phone: [facility] 06-26-2024 13:43-0400 Systolic blood pressure 110 mm[Hg] Belem Hunter PA-C Work Phone: [facility] 06-25-2024 12:51-0400 Body mass index (BMI) [Ratio] 21.27 kg/m2 Trinidad Roque PRODUCTION ENGINEER TRACK.TIME SIGNAL WIRER Work Phone: [facility] 06-25-2024 12:51-0400 Body weight 72.12 kg Trinidad Roque APRN.TIME SIGNAL WIRER Work Phone: [facility] 06-25-2024 12:51-0400 Diastolic blood pressure 57 mm[Hg] Trinidad Roque PRODUCTION ENGINEER TRACK.TIME SIGNAL WIRER Work Phone: [facility] 06-25-2024 12:51-0400 Heart rate 73 /min Trinidad Roque APRN.TIME SIGNAL WIRER Work Phone: [facility] 06-25-2024 12:51-0400 Respiratory rate 14 /min Trinidad Roque APRN.TIME SIGNAL WIRER Work Phone: [facility] 06-25-2024 12:51-0400 Systolic blood pressure 107 mm[Hg] Trinidad Roque APRN.TIME SIGNAL WIRER Work Phone: [facility] 06-07-2024 15:10-0400 Body mass index (BMI) [Ratio] 21.13 kg/m2 Trinidad Roque PRODUCTION ENGINEER TRACK.TIME SIGNAL WIRER Work Phone: [facility] 06-07-2024 15:10-0400 Body weight 71.67 kg Trinidad Roque APRN.TIME SIGNAL WIRER Work Phone: [facility] 06-07-2024 15:10-0400 Diastolic blood pressure 63 mm[Hg] Trinidad Roque PRODUCTION ENGINEER TRACK.TIME SIGNAL WIRER Work Phone: [facility] 06-07-2024 15:10-0400 Heart rate 76 /min Trinidad Roque PRODUCTION ENGINEER TRACK.TIME SIGNAL WIRER Work Phone: [facility] 06-07-2024 15:10-0400 Respiratory rate 14 /min Trinidad Roque PRODUCTION ENGINEER TRACK.TIME SIGNAL WIRER Work Phone: [facility] 06-07-2024 15:10-0400 Systolic blood pressure 118 mm[Hg] Trinidad Roque PRODUCTION ENGINEER TRACK.TIME SIGNAL WIRER Work Phone: [facility] 02-23-2024 10:21-0400 Body height 184.2 cm Francisco Bahena MD Work Phone: [facility] 02-23-2024 10:21-0400 Body mass index (BMI) [Ratio] 21.67 kg/m2 Francisco Bahena MD Work Phone: [facility] 02-23-2024 10:21-0400 Body weight 73.48 kg Francisco Bahena MD Work Phone: [facility] 02-23-2024 10:21-0400 Diastolic blood pressure 69 mm[Hg] Francisco Bahena MD Work Phone: [facility] 02-23-2024 10:21-0400 Heart rate 76 /min Francisco Bahena MD Work Phone: [facility] 02-23-2024 10:21-0400 Systolic blood pressure 143 mm[Hg] Francisco Bahena MD Work Phone: [facility] 12-09-2023 12:56-0400 Heart rate 76 /min Valeria Prebish PRODUCTION ENGINEER TRACK.TIME SIGNAL WIRER Work Phone: [facility] 12-09-2023 12:56-0400 Respiratory rate 16 /min Valeria Prebish PRODUCTION ENGINEER TRACK.TIME SIGNAL WIRER Work Phone: [facility] 12-09-2023 12:56-0400 SaO2% (BldA) [Mass fraction] 100 % Valeria Barbara MORRIS Work Phone: [facility] 11-14-2023 10:52-0500 Diastolic blood pressure 63 mm[Hg] Rigoberto Church MD Work Phone: [facility] 11-14-2023 10:52-0500 Heart rate 83 /min Rigoberto Church MD Work Phone: [facility] 11-14-2023 10:52-0500 Respiratory rate 18 /min Rigoberto Church MD Work Phone: [facility] 11-14-2023 10:52-0500 SaO2% (BldA) [Mass fraction] 100 % Rigoberto Church MD Work Phone: [facility] 11-14-2023 10:52-0500 Systolic blood pressure 130 mm[Hg] Rigoberto Church MD Work Phone: [facility] 10-27-2023 11:28-0500 Diastolic blood pressure 63 mm[Hg] Aly Guardado MD Work Phone: [facility] 10-27-2023 11:28-0500 Heart rate 73 /min Aly Guardado MD Work Phone: [facility] 10-27-2023 11:28-0500 Respiratory rate 16 /min Aly Guardado MD Work Phone: [facility] 10-27-2023 11:28-0500 SaO2% (BldA) [Mass fraction] 100 % Aly Guardado MD Work Phone: [facility] 10-27-2023 11:28-0500 Systolic blood pressure 125 mm[Hg] Aly Guardado MD Work Phone: [facility] 10-27-2023 10:12-0500 Body temperature 97.9 [degF] Aly Guardado MD Work Phone: [facility] 10-27-2023 10:12-0500 Body weight 74.8 kg Aly Guardado MD Work Phone: [facility] 09-28-2023 08:45-0500 Body temperature 97.7 [degF] Dr. Francisco Bahena Work Phone: 7(090)486-577574 [place] [address] 09-28-2023 08:45-0500 Diastolic blood pressure 70 mm[Hg] Dr. Francisco Bahena Work Phone: 0(492)694-957574 [place] [address] 09-28-2023 08:45-0500 Heart rate 79 /min Dr. Francisco Bahena Work Phone: 1(998)915-040882 [place] [address] 09-28-2023 08:45-0500 Respiratory rate 12 /min Dr. Francisco Bahena Work Phone: 3(160)159-399882 [place] [address] 09-28-2023 08:45-0500 SaO2% (BldA) [Mass fraction] 100 % Dr. Francisco Bahena Work Phone: 3(178)497-409874 [place] [address] 09-28-2023 08:45-0500 Systolic blood pressure 115 mm[Hg] Dr. Francisco Bahena Work Phone: 1(389)306-029274 [place] [address] 09-25-2023 01:45-0500 Body height 180.[address] Francisco Bahena Work Phone: 2(367)507-466274 [place] [address] 09-25-2023 01:45-0500 Body mass index (BMI) [Ratio] 22.8 kg/m2 Dr. Francisco Bahena Work Phone: 6(514)056-507374 [place] [address] 09-25-2023 01:45-0500 Body weight 74.[address] Francisco Bahena Work Phone: 2(555)905-769674 [place] [address] 09-25-2023 00:16-0500 Body temperature 101.5 [degF] [facility] 09-25-2023 00:16-0500 Diastolic blood pressure 48 mm[Hg] [facility] 09-25-2023 00:16-0500 Heart rate 98 /min [facility] 09-25-2023 00:16-0500 Respiratory rate 18 /min [facility] 09-25-2023 00:16-0500 SaO2% (BldA) [Mass fraction] 95 % [facility] 09-25-2023 00:16-0500 Systolic blood pressure 102 mm[Hg] [facility] 09-24-2023 19:25-0500 Body height 177.8 cm [facility] 09-24-2023 19:25-0500 Body mass index (BMI) [Ratio] 24.1 kg/m2 [facility] 09-24-2023 19:25-0500 Body weight 76.3 kg [facility] 09-11-2023 00:21-0500 Diastolic blood pressure 63 mm[Hg] [facility] 09-11-2023 00:21-0500 Heart rate 69 /min [facility] 09-11-2023 00:21-0500 Respiratory rate 15 /min [facility] 09-11-2023 00:21-0500 SaO2% (BldA) [Mass fraction] 97 % [facility] 09-11-2023 00:21-0500 Systolic blood pressure 133 mm[Hg] [facility] 09-10-2023 18:50-0500 Body height 177.8 cm [facility] 09-10-2023 18:50-0500 Body temperature 98.8 [degF] [facility] 08-25-2023 12:09-0500 Body temperature 98.8 [degF] Francisco Bahena MD Work Phone: [facility] 08-25-2023 12:09-0500 Body weight 75.03 kg Francisco Bahena MD Work Phone: [facility] 08-25-2023 12:09-0500 Diastolic blood pressure 54 mm[Hg] Francisco Bahena MD Work Phone: [facility] 08-25-2023 12:09-0500 Heart rate 68 /min Francisco Bahena MD Work Phone: [facility] 08-25-2023 12:09-0500 Respiratory rate 16 /min Francisco Bahena MD Work Phone: [facility] 08-25-2023 12:09-0500 Systolic blood pressure 122 mm[Hg] Francisco Bahena MD Work Phone: [facility] 07-18-2023 14:18-0400 Body height 180.3 cm Ludivina Nunez PRODUCTION ENGINEER TRACK.TIME SIGNAL WIRER Work Phone: [facility] 07-18-2023 14:18-0400 Body weight 75.75 kg Ludivina Nunez PRODUCTION ENGINEER TRACK.TIME SIGNAL WIRER Work Phone: [facility] 07-13-2023 10:04-0400 Diastolic blood pressure 55 mm[Hg] Rigoberto Church MD Work Phone: [facility] 07-13-2023 10:04-0400 Heart rate 74 /min Rigoberto Church MD Work Phone: [facility] 07-13-2023 10:04-0400 Respiratory rate 16 /min Rigoebrto Church MD Work Phone: [facility] 07-13-2023 10:04-0400 SaO2% (BldA) [Mass fraction] 100 % Rigoberto Church MD Work Phone: [facility] 07-13-2023 10:04-0400 Systolic blood pressure 125 mm[Hg] Rigoberto Church MD Work Phone: [facility] 06-09-2023 10:04-0400 Heart rate 66 /min Rigoberto Church MD Work Phone: [facility] 06-09-2023 10:04-0400 Respiratory rate 16 /min Rigoberto Church MD Work Phone: [facility] 06-09-2023 10:04-0400 SaO2% (BldA) [Mass fraction] 98 % Rigoberto Church MD Work Phone: [facility] 04-05-2023 12:28-0400 Body weight 76.11 kg Cherelle HUMPHREYSC Work Phone: [facility] 04-05-2023 12:28-0400 Diastolic blood pressure 64 mm[Hg] Cherelle FERGUSON-C Work Phone: [facility] 04-05-2023 12:28-0400 Heart rate 82 /min Cherelle FERGUSON-C Work Phone: [facility] 04-05-2023 12:28-0400 Respiratory rate 16 /min Cherelle FERGUSON-C Work Phone: [facility] 04-05-2023 12:28-0400 SaO2% (BldA) [Mass fraction] 99 % Cherelle Benavides PA-C Work Phone: [facility] 04-05-2023 12:28-0400 Systolic blood pressure 118 mm[Hg] Cherelle Benavides PA-C Work Phone: [facility] 03-18-2023 13:35-0400 Body temperature 99 [degF] Javier Keys MD Work Phone: [facility] 03-18-2023 13:35-0400 Body weight 76.66 kg Javier Keys MD Work Phone: [facility] 03-18-2023 13:35-0400 Diastolic blood pressure 78 mm[Hg] Javier Keys MD Work Phone: [facility] 03-18-2023 13:35-0400 Heart rate 85 /min Javier Keys MD Work Phone: [facility] 03-18-2023 13:35-0400 SaO2% (BldA) [Mass fraction] 99 % Javier Keys MD Work Phone: [facility] 03-18-2023 13:35-0400 Systolic blood pressure 123 mm[Hg] Javier Keys MD Work Phone: [facility] 01-05-2023 11:24-0400 Body height 177.8 cm Pacc 1 Work Phone: [facility] 01-05-2023 11:24-0400 Body temperature 99.1 [degF] Pacc 1 Work Phone: [facility] 01-05-2023 11:24-0400 Body weight 75.3 kg Pacc 1 Work Phone: [facility] 01-05-2023 11:24-0400 Diastolic blood pressure 66 mm[Hg] Pacc 1 Work Phone: [facility] 01-05-2023 11:24-0400 Heart rate 78 /min Pacc 1 Work Phone: [facility] 01-05-2023 11:24-0400 Respiratory rate 16 /min Pacc 1 Work Phone: [facility] 01-05-2023 11:24-0400 SaO2% (BldA) [Mass fraction] 99 % Pacc 1 Work Phone: [facility] 01-05-2023 11:24-0400 Systolic blood pressure 128 mm[Hg] Pacc 1 Work Phone: [facility] 01-03-2023 13:00-0400 Body temperature 98.4 [degF] Treatment Wstr Work Phone: [facility] 01-03-2023 13:00-0400 Diastolic blood pressure 65 mm[Hg] Treatment Wstr Work Phone: [facility] 01-03-2023 13:00-0400 Heart rate 82 /min Treatment Wstr Work Phone: [facility] 01-03-2023 13:00-0400 Respiratory rate 18 /min Treatment Wstr Work Phone: [facility] 01-03-2023 13:00-0400 SaO2% (BldA) [Mass fraction] 98 % Treatment Wstr Work Phone: [facility] 01-03-2023 13:00-0400 Systolic blood pressure 136 mm[Hg] Treatment Wstr Work Phone: [facility] 01-02-2023 16:54-0400 Diastolic blood pressure 63 mm[Hg] [facility] 01-02-2023 16:54-0400 Heart rate 62 /min [facility] 01-02-2023 16:54-0400 Respiratory rate 16 /min [facility] 01-02-2023 16:54-0400 SaO2% (BldA) [Mass fraction] 100 % [facility] 01-02-2023 16:54-0400 Systolic blood pressure 118 mm[Hg] [facility] 01-02-2023 14:00-0400 Body height 177.8 cm [facility] 01-02-2023 14:00-0400 Body mass index (BMI) [Ratio] 24.5 kg/m2 [facility] 01-02-2023 14:00-0400 Body temperature 98.3 [degF] [facility] 01-02-2023 14:00-0400 Body weight 77.5 kg [facility] 12-30-2022 13:41-0400 Body temperature 97 [degF] Treatment Wstr Work Phone: [facility] 12-30-2022 13:41-0400 Diastolic blood pressure 63 mm[Hg] Treatment Wstr Work Phone: [facility] 12-30-2022 13:41-0400 Heart rate 65 /min Treatment Wstr Work Phone: [facility] 12-30-2022 13:41-0400 SaO2% (BldA) [Mass fraction] 99 % Treatment Wstr Work Phone: [facility] 12-30-2022 13:41-0400 Systolic blood pressure 122 mm[Hg] Treatment Wstr Work Phone: [facility] 12-24-2022 14:10-0400 Body temperature 98.49 [degF] Treatment Wstr Work Phone: [facility] 12-24-2022 14:10-0400 Diastolic blood pressure 85 mm[Hg] Treatment Wstr Work Phone: [facility] 12-24-2022 14:10-0400 Heart rate 81 /min Treatment Wstr Work Phone: [facility] 12-24-2022 14:10-0400 Respiratory rate 16 /min Treatment Wstr Work Phone: [facility] 12-24-2022 14:10-0400 Systolic blood pressure 128 mm[Hg] Treatment Wstr Work Phone: [facility] 12-22-2022 13:00-0400 Diastolic blood pressure 65 mm[Hg] Treatment Wstr Work Phone: [facility] 12-22-2022 13:00-0400 Heart rate 74 /min Treatment Wstr Work Phone: [facility] 12-22-2022 13:00-0400 Respiratory rate 18 /min Treatment Wstr Work Phone: [facility] 12-22-2022 13:00-0400 SaO2% (BldA) [Mass fraction] 98 % Treatment Wstr Work Phone: [facility] 12-22-2022 13:00-0400 Systolic blood pressure 136 mm[Hg] Treatment Wstr Work Phone: [facility] 12-17-2022 14:48-0400 Diastolic blood pressure 47 mm[Hg] Treatment Wstr Work Phone: [facility] 12-17-2022 14:48-0400 Heart rate 65 /min Treatment Wstr Work Phone: [facility] 12-17-2022 14:48-0400 SaO2% (BldA) [Mass fraction] 99 % Treatment [facility]str Work Phone: [facility] 12-17-2022 14:48-0400 Systolic blood pressure 103 mm[Hg] Treatment Wstr Work Phone: [facility] 12-17-2022 14:07-0400 Body temperature 99.19 [degF] Treatment Wstr Work Phone: [facility] 11-24-2022 13:20-0500 Body weight 75.75 kg Coco Payne MD Work Phone: [facility] 11-24-2022 13:20-0500 Diastolic blood pressure 81 mm[Hg] Coco Payne MD Work Phone: [facility] 11-24-2022 13:20-0500 Heart rate 81 /min Coco Payne MD Work Phone: [facility] 11-24-2022 13:20-0500 SaO2% (BldA) [Mass fraction] 100 % Coco Payne MD Work Phone: [facility] 11-24-2022 13:20-0500 Systolic blood pressure 131 mm[Hg] Coco Payne MD Work Phone: [facility] 11-08-2022 15:07-0500 Body mass index (BMI) [Ratio] 23.5 kg/m2 [facility] 11-08-2022 15:07-0500 Body temperature 97.7 [degF] [facility] 11-08-2022 15:07-0500 Body weight 74.38 kg [facility] 11-08-2022 15:07-0500 Diastolic blood pressure 59 mm[Hg] [facility] 11-08-2022 15:07-0500 Heart rate 98 /min [facility] 11-08-2022 15:07-0500 Respiratory rate 19 /min [facility] 11-08-2022 15:07-0500 SaO2% (BldA) [Mass fraction] 99 % [facility] 11-08-2022 15:07-0500 Systolic blood pressure 137 mm[Hg] [facility] 10-12-2022 12:53-0500 Body weight 75.75 kg Trinidad Roque APRN.TIME SIGNAL WIRER Work Phone: [facility] 10-12-2022 12:53-0500 Diastolic blood pressure 76 mm[Hg] Trinidad Roque APRN.TIME SIGNAL WIRER Work Phone: [facility] 10-12-2022 12:53-0500 Heart rate 82 /min Trinidad Roque APRN.TIME SIGNAL WIRER Work Phone: [facility] 10-12-2022 12:53-0500 Respiratory rate 14 /min Trinidad Roque APRN.TIME SIGNAL WIRER Work Phone: [facility] 10-12-2022 12:53-0500 SaO2% (BldA) [Mass fraction] 100 % Trinidad Roque APRN.TIME SIGNAL WIRER Work Phone: [facility] 10-12-2022 12:53-0500 Systolic blood pressure 128 mm[Hg] Trinidad Roque APRN.TIME SIGNAL WIRER Work Phone: [facility] 10-04-2022 15:59-0500 Body height 182.9 cm Francisco Bahena MD Work Phone: [facility] 10-04-2022 15:59-0500 Body weight 74.39 kg Francisco Bahena MD Work Phone: [facility] 10-04-2022 15:59-0500 Diastolic blood pressure 62 mm[Hg] Francisco Bahena MD Work Phone: [facility] 10-04-2022 15:59-0500 Heart rate 76 /min Francisco Bahena MD Work Phone: [facility] 10-04-2022 15:59-0500 Respiratory rate 16 /min Francisco Bahena MD Work Phone: [facility] 10-04-2022 15:59-0500 Systolic blood pressure 104 mm[Hg] Francisco Bahena MD Work Phone: [facility] 08-18-2022 13:18-0500 Body height 180.3 cm Yolanda Coyner PRODUCTION ENGINEER TRACK.TIME SIGNAL WIRER Work Phone: [facility] 08-18-2022 13:18-0500 Body weight 73.48 kg Yolanda Coyner PRODUCTION ENGINEER TRACK.TIME SIGNAL WIRER Work Phone: [facility] 08-16-2022 22:15-0500 Diastolic blood pressure 88 mm[Hg] Dr. Francisco Bahena Work Phone: [facility] Work Phone: 08-16-2022 22:15-0500 Heart rate 78 /min Dr. Francisco Bahena Work Phone: [facility] Work Phone: 08-16-2022 22:15-0500 Respiratory rate 16 /min Dr. Francisco Bahena Work Phone: [facility] Work Phone: 08-16-2022 22:15-0500 SaO2% (BldA) [Mass fraction] 100 % Dr. Francisco Bahena Work Phone: [facility] Work Phone: 08-16-2022 22:15-0500 Systolic blood pressure 131 mm[Hg] Dr. Francisco Bahena Work Phone: [facility] Work Phone: 08-16-2022 18:50-0500 Body height 185.[address] Francisco Bahena Work Phone: [facility] Work Phone: 08-16-2022 18:50-0500 Body mass index (BMI) [Ratio] 21.7 kg/m2 Dr. Francisco Bahena Work Phone: [facility] Work Phone: 08-16-2022 18:50-0500 Body temperature 98.9 [degF] Dr. Francisco Bahean Work Phone: [facility] Work Phone: 08-16-2022 18:50-0500 Body weight 74.[address] Francisco Bahena Work Phone: [facility] Work Phone: 07-09-2022 09:11-0400 Body height 180.3 cm Pacc 1 Work Phone: [facility] 07-09-2022 09:11-0400 Body temperature 99.19 [degF] Pacc 1 Work Phone: [facility] 07-09-2022 09:11-0400 Body weight 78.93 kg Pacc 1 Work Phone: [facility] 07-09-2022 09:11-0400 Diastolic blood pressure 70 mm[Hg] Pacc 1 Work Phone: [facility] 07-09-2022 09:11-0400 Heart rate 77 /min Pacc 1 Work Phone: [facility] 07-09-2022 09:11-0400 Respiratory rate 16 /min Pacc 1 Work Phone: [facility] 07-09-2022 09:11-0400 SaO2% (BldA) [Mass fraction] 98 % [facility] 1 Work Phone: [facility] 07-09-2022 09:11-0400 Systolic blood pressure 118 mm[Hg] [facility] 1 Work Phone: [facility] 07-02-2022 09:42-0400 Body height 180.3 cm Respiratory Wstr Work Phone: [facility] 07-02-2022 09:42-0400 Body weight 78.47 kg Respiratory Wstr Work Phone: [facility] 07-02-2022 09:42-0400 Heart rate 82 /min Respiratory Wstr Work Phone: [facility] 07-02-2022 09:42-0400 Respiratory rate 14 /min Respiratory Wstr Work Phone: [facility] 07-02-2022 09:42-0400 SaO2% (BldA) [Mass fraction] 98 % Respiratory Wstr Work Phone: [facility] 06-23-2022 10:44-0400 Body height 182.9 cm Sofia Wilde MD Work Phone: [facility] 06-23-2022 10:44-0400 Body temperature 97.5 [degF] Sofia Wilde MD Work Phone: [facility] 06-23-2022 10:44-0400 Body weight 78.97 kg Sofia Wilde MD Work Phone: [facility] 06-23-2022 10:44-0400 Diastolic blood pressure 76 mm[Hg] Sofia Wilde MD Work Phone: [facility] 06-23-2022 10:44-0400 Heart rate 85 /min Sofia Wilde MD Work Phone: [facility] 06-23-2022 10:44-0400 SaO2% (BldA) [Mass fraction] 99 % Sofia Wilde MD Work Phone: [facility] 06-23-2022 10:44-0400 Systolic blood pressure 150 mm[Hg] Sofia Wilde MD Work Phone: [facility] 05-21-2022 12:22-0400 Body temperature 98.49 [degF] Cherelle Benavides PA-C Work Phone: [facility] 05-21-2022 12:22-0400 Body weight 78.93 kg Cherelle Benavides PA-C Work Phone: [facility] 05-21-2022 12:22-0400 Diastolic blood pressure 60 mm[Hg] Cherelle Benavides PA-C Work Phone: [facility] 05-21-2022 12:22-0400 Heart rate 80 /min Cherelle Benavides PA-C Work Phone: [facility] 05-21-2022 12:22-0400 Respiratory rate 18 /min Cherelle Benavides PA-C Work Phone: [facility] 05-21-2022 12:22-0400 Systolic blood pressure 110 mm[Hg] Cherelle Benavides PA-C Work Phone: [facility] 05-03-2022 09:59-0400 Diastolic blood pressure 97 mm[Hg] Dr. Francisco Bahena Work Phone: [facility] Work Phone: 05-03-2022 09:59-0400 Heart rate 72 /min Dr. Francisco Bahena Work Phone: [facility] Work Phone: 05-03-2022 09:59-0400 Respiratory rate 16 /min Dr. Francisco Bahena Work Phone: [facility] Work Phone: 05-03-2022 09:59-0400 SaO2% (BldA) [Mass fraction] 97 % Dr. Francisco Bahena Work Phone: [facility] Work Phone: 05-03-2022 09:59-0400 Systolic blood pressure 161 mm[Hg] Dr. Francisco Bahena Work Phone: [facility] Work Phone: 05-03-2022 06:49-0400 Body height 185.[address] Francisco Bahena Work Phone: [facility] Work Phone: 05-03-2022 06:49-0400 Body mass index (BMI) [Ratio] 28.5 kg/m2 Dr. Francisco Bahena Work Phone: [facility] Work Phone: 05-03-2022 06:49-0400 Body temperature 98.1 [degF] Dr. Francisco Bahena Work Phone: [facility] Work Phone: 05-03-2022 06:49-0400 Body weight 98.[address] Francisco Bahena Work Phone: [facility] Work Phone: Encounters Encounter Date Encounter Type Care Provider Facility Start: 04-17-2025 Non-patient / Non-visit Dr. Elyssa Enrique MD [facility] Work Phone: Start: 04-16-2025 Non-patient / Non-visit Dr. Elyssa Enrique MD [facility] Work Phone: Start: 04-15-2025 Non-patient / Non-visit Dr. Elyssa Enrique MD [facility] Work Phone: Start: 04-15-2025 End: 04-15-2025 Chart abstracting Francisco Bahena MD Work Phone: [facility] Comment on above: ER Discharge Summary (H&P) Start: 04-14-2025 Non-patient / Non-visit Dr. Elias sousa MD [facility] Work Phone: Start: 04-13-2025 Non-patient / Non-visit Dr. Elias sousa MD [facility] Work Phone: Start: 04-12-2025 ambulatory Elyssa Enrique Facility :[facility] Start: 04-12-2025 End: 04-17-2025 Evaluation and management of inpatient Dr. Monique Agarwal MD -[facility] 3 Work Phone: Start: 04-12-2025 End: 04-12-2025 Telephone encounter Francisco Bahena MD Work Phone: [facility] Comment on above: Patient Question Start: 04-11-2025 End: 04-11-2025 Refill Quinten Yu MD Work Phone: Neurology Comment on above: Refill Request Start: 04-10-2025 End: 04-11-2025 Refill Francisco Bahena MD Work Phone: [facility] Comment on above: Refill Request Start: 04-08-2025 End: 04-10-2025 Telephone encounter Aris Baeza MD Work Phone: [facility] Comment on above: Patient Question Start: 04-05-2025 End: 04-05-2025 Patient encounter procedure Sara Hooper PRODUCTION ENGINEER TRACK.TIME SIGNAL WIRER Work Phone: Neurology Comment on above: Dementia without beh avioral disturbance (HCC) (Primary Dx) Start: 04-05-2025 End: 04-05-2025 ambulatory SARA HOOPER Facility:[facility] Start: 04-04-2025 End: 04-04-2025 ambulatory Beverly Balbuena RN BLOOD MANAGEMENT Comment on above: Refill Request Start: 04-01-2025 End: 04-02-2025 Telephone encounter Yun Coles MD Work Phone: Urology Comment on above: Received a Letter fr om Dr. Baeza ref to upcoming procedure on Start: 03-28-2025 End: 04-01-2025 ambulatory Aris Baeza MD Work Phone: [facility] Start: 03-28-2025 End: 04-01-2025 Patient encounter status Aris Baeza MD Work Phone: [facility] Start: 03-22-2025 End: 03-26-2025 Telephone encounter Aris Baeza MD Work Phone: Neurology Comment on above: Schedule Surgery Start: 03-19-2025 End: 03-19-2025 Patient encounter procedure Aris Baeza MD Work Phone: [facility] Comment on above: Other secondary kyph osis, thoracic region (Primary Dx); Scoliosis of lumbar spine, unspecified scoliosis type Start: 03-19-2025 End: 03-19-2025 Subsequent hospital visit by physician [facility] Work Phone: [facility] General Comment on above: Other secondary kyph osis, thoracic region [M40.14] Start: 03-19-2025 End: 03-19-2025 ambulatory HONEY BAEZA Facility:[facility] Start: 03-13-2025 End: 03-13-2025 Refill Daniela Noel APRN.TIME SIGNAL WIRER Work Phone: Colorectal Surgery Start: 03-12-2025 End: 03-12-2025 Telephone encounter Daniela Noel APRN.TIME SIGNAL WIRER Work Phone: Colorectal Surgery Start: 03-08-2025 End: 03-11-2025 ambulatory Yun Coles MD Work Phone: Urology Comment on above: Javier's Me thenamine Nitish 1 gm tab Start: 03-05-2025 End: 03-08-2025 Telephone encounter Francisco Bahena MD Work Phone: [facility] Comment on above: Home Health Update Start: 03-04-2025 End: 03-13-2025 Refill Daniela Noel APRN.TIME SIGNAL WIRER Work Phone: Colorectal Surgery Comment on above: Refill Request Start: 02-22-2025 End: 02-22-2025 Office consultation new/estab patient 80 min Gertrudis Carrillo DO Work Phone: Allergy Comment on above: Adverse effect of dr guerra, sequela (Primary Dx); Allergy to multiple antibiotics; Sputum production; MGUS (monoclonal gammopathy of unknown significance) Start: 02-22-2025 End: 02-22-2025 ambulatory AMUDMIKALA LAURIRAYA Facility:[facility] Start: 02-21-2025 End: 03-20-2025 Telephone encounter Francisco Bahena MD Work Phone: [facility] Comment on above: Appeal letter Start: 02-20-2025 End: 02-20-2025 Home visit Francisco Bahena MD Work Phone: [facility] Comment on above: Urinary tract infect ion without hematuria, site unspecified (Primary Dx); Gastroesophageal reflux disease, unspecified whether esophagitis present Start: 02-20-2025 End: 02-21-2025 Telephone encounter Aris Baeza MD Work Phone: [facility] Comment on above: Information Start: 02-19-2025 End: 03-08-2025 Telephone encounter Francisco Bahena MD Work Phone: [facility] Comment on above: Patient Update; Dhaval er Start: 02-17-2025 End: 02-19-2025 ambulatory Francisco Bahena MD Work Phone: [facility] Comment on above: Sertraline HCL 25 MG Start: 02-15-2025 End: 02-15-2025 Patient encounter procedure Yun Coles MD Work Phone: Urology Comment on above: Recurrent UTI (Prima ry Dx); Nephrolithiasis; Allergy to multiple antibiotics Start: 02-15-2025 End: 02-15-2025 ambulatory YUN COLES Facility:[facility] Start: 02-13-2025 ambulatory YUN COLES Facility :[facility] Start: 02-12-2025 End: 02-12-2025 ambulatory FRANCISCO BAHENA Facility:[facility] Start: 02-08-2025 End: 02-08-2025 Patient Outreach Nik Omer RN Work Phone: [employer] Comment on above: Weekly phone contact (Recurring) for Transitional Care Management Start: 02-05-2025 End: 02-05-2025 ambulatory FRANCISCO BAHENA Facility:[facility] Start: 02-04-2025 End: 02-05-2025 Telephone encounter Francisco Bahena MD Work Phone: [facility] Comment on above: Orders Patient Question Start: 02-01-2025 End: 02-01-2025 Patient Outreach Nik Omer RN Work Phone: [employer] Comment on above: Weekly phone contact (Recurring) for Transitional Care Management Started Weekly phone contact (Recurring) for Transitional Care Management Home Care Management Start: 01-30-2025 End: 01-30-2025 Telephone encounter Francisco Bhaena MD Work Phone: [facility] Comment on above: Patient Question; Pa tient Update Patient Update Start: 01-29-2025 End: 01-29-2025 Emergency department patient visit Dr. Francisco Bahena MD Work Phone: -Emergency Department Work Phone: Start: 01-28-2025 End: 01-28-2025 Manual pelvic examination Qasim Ansari PT Work Phone: [facility] Comment on above: Pelvic floor dysfunc tion Start: 01-28-2025 End: 01-28-2025 ambulatory Qasim Ansari PT Work Phone: [facility] Start: 01-26-2025 End: 02-01-2025 Refill Francisco Bahena MD Work Phone: [facility] Comment on above: Refill Request Start: 01-25-2025 End: 01-25-2025 Patient Outreach Nik Omer RN Work Phone: [employer] Comment on above: Weekly phone contact (Recurring) for Transitional Care Management Start: 01-22-2025 End: 01-22-2025 Telephone encounter Francisco Bahena MD Work Phone: [facility] Comment on above: OT delay of care- re questing verbal Start: 01-21-2025 End: 01-21-2025 ambulatory FRANCISCO BAHENA Facility:[facility] Start: 01-21-2025 End: 01-21-2025 Patient encounter procedure Francisco Bahena MD Work Phone: [facility] Comment on above: History of recurrent UTIs (Primary Dx); Sepsis due to Escherichia coli without acute organ dysfunction (HCC); Elevated troponin I level; Lumbar radiculopathy Start: 01-21-2025 End: 01-21-2025 ambulatory FRANCISCO BAHENA Facility:[facility] Start: 01-15-2025 End: 01-15-2025 Chart abstracting Yash Monroe MA [facility] Comment on above: Hospital F/U ([facility] - hospital follow up ) Start: 01-15-2025 End: 01-15-2025 Telephone encounter Francisco Bahena MD Work Phone: [facility] Comment on above: PT POC Start: 01-14-2025 End: 01-15-2025 Telephone encounter Francisco Bahena MD Work Phone: [facility] Comment on above: Home Health Nursing Plan of Care/Update Refill Request Start: 01-13-2025 End: 01-14-2025 ambulatory Yun Coles MD Work Phone: Urology Comment on above: FYI Start: 01-11-2025 End: 01-14-2025 Patient Outreach Francisco Bahena MD Work Phone: [facility] Comment on above: Transition Of Care Follow HH Start: 01-10-2025 Non-patient / Non-visit Dr. Allyson Kilgore MD -[facility] Work Phone: Start: 01-10-2025 End: 01-11-2025 Follow-up encounter Francisco Bahena MD Work Phone: [facility] [place] Comment on above: Results Start: 01-09-2025 Non-patient / Non-visit Dr. Allyson Kilgore MD -[facility] Work Phone: Start: 01-08-2025 ambulatory Francisco Bahena Facility :[facility] Start: 01-08-2025 End: 01-10-2025 Evaluation and management of inpatient Dr. Keyana Aldana MD -Progressive Care Unit Work Phone: Start: 01-07-2025 End: 01-07-2025 ambulatory FRANCISCO BAHENA Facility:[facility] Start: 01-07-2025 End: 01-07-2025 Subsequent hospital visit by physician [facility] Work Phone: Radiology Comment on above: Thyroid nodule [E04. 1] Start: 01-02-2025 End: 01-02-2025 ambulatory ANGELA HARRY Facility:[facility] Start: 01-02-2025 End: 01-02-2025 Office outpatient visit 15 minutes Angela Harry PA-C Work Phone: Urology Comment on above: Nephrolithiasis (Dl paul Dx); Screening for genitourinary condition Start: 12-31-2024 End: 12-31-2024 Patient encounter procedure Francisco Bahena MD Work Phone: [facility] Comment on above: Medicare annual well ness visit, subsequent (Primary Dx); Essential hypertension, benign; Elevated blood sugar; Bilateral carotid artery stenosis; Episodic cluster headache, not intractable; Gastroesophageal reflux disease, unspecified whether esophagitis present; Iron deficiency anemia, unspecified iron deficiency anemia type; Peripheral edema; Situational anxiety; Situational depression; Thyroid nodule; Abnormal SPEP; Dementia without behavioral disturbance (HCC); Essential tremor; Ilioinguinal neuralgia of left side; Neuropathy - (NOS); Chronic constipation; Advance directive discussed with patient; Need for vaccination Start: 12-31-2024 End: 12-31-2024 ambulatory FRANCISCO BAHENA Facility:[facility] Start: 12-28-2024 End: 12-28-2024 Refill Linda Andrade PA-C Work Phone: Urology Comment on above: Refill Request Start: 12-27-2024 End: 12-27-2024 ambulatory ANGELA HARRY Facility:[facility] Start: 12-27-2024 End: 12-27-2024 Subsequent hospital visit by physician [facility] Work Phone: Radiology Comment on above: Screening for genito urinary condition [Z13.89] Start: 12-19-2024 End: 12-19-2024 Admission to same day surgery center Daniela Noel NEREYDA.TIME SIGNAL WIRER Work Phone: Colorectal Surgery Comment on above: Manometry Start: 12-19-2024 End: 12-19-2024 ambulatory DANIELA NOEL Facility:[facility] Start: 12-19-2024 End: 12-19-2024 Patient encounter procedure Daniela Noel PRODUCTION ENGINEER TRACK.TIME SIGNAL WIRER Work Phone: Colorectal Surgery Comment on above: Pelvic floor dysfunc tion (Primary Dx) Start: 12-19-2024 End: 12-22-2024 Follow-up encounter Francisco Bahena MD Work Phone: Family Medicine [place] Start: 12-15-2024 End: 12-15-2024 ambulatory FRANCISCO BAHENA Facility:[facility] Start: 12-14-2024 End: 12-14-2024 ambulatory Riaz Williamson Work Phone: Hematology/Oncology Comment on above: Iron deficiency anem ia, unspecified iron deficiency anemia type (Primary Dx) Start: 12-14-2024 End: 12-14-2024 Patient encounter procedure Riaz Teri Work Phone: Hematology/Oncology Start: 12-13-2024 End: 12-14-2024 Follow-up encounter Riaz Williamson Work Phone: Hematology/Oncology Start: 12-12-2024 End: 12-12-2024 ambulatory RIAZ WILLIAMSON Facility:[facility] Start: 12-11-2024 End: 12-12-2024 Follow-up encounter Francisco Bahena MD Work Phone: Family Medicine [place] Start: 12-04-2024 End: 12-04-2024 Refill Francisco Bahena MD Work Phone: Family Medicine [place] Comment on above: Refill Request Pathological fractur e, other site, initial encounter for fracture [M84.48XA] Start: 11-29-2024 End: 11-29-2024 ambulatory Francisco Bahena MD Work Phone: Family Medicine [place] Comment on above: bone scan Start: 11-29-2024 End: 11-29-2024 E-mail encounter from caregiver Francisco Bahena MD Work Phone: Family Medicine [place] Start: 11-23-2024 End: 11-23-2024 Subsequent hospital visit by physician [facility] Work Phone: Nuclear Medicine Comment on above: Rib pain on left anjelica e [R07.81] Start: 11-23-2024 End: 12-03-2024 Follow-up encounter Francisco Bahena MD Work Phone: Family Medicine [place] Comment on above: Pathological fractur e, other site, initial encounter for fracture (Primary Dx); Abnormal radionuclide bone scan Start: 11-23-2024 End: 11-23-2024 Telephone encounter Riaz Williamson Work Phone: Hematology/Oncology Comment on above: Patient Question Start: 11-23-2024 End: 11-27-2024 ambulatory Francisco Bahena MD Work Phone: Family Medicine [place] Comment on above: Patient Update Start: 11-23-2024 End: 11-23-2024 Subsequent hospital visit by physician Injection [facility] Work Phone: Nuclear Medicine Comment on above: Rib pain on left anjelica e [R07.81] Start: 11-20-2024 End: 11-23-2024 Refill Trinidad Roque APRN.CNP Work Phone: Family Medicine [place] Comment on above: Refill Request Post infusions Start: 11-10-2024 End: 11-12-2024 Telephone encounter Francisco Bahean MD Work Phone: [facility] [place] Comment on above: Needs appointment sc heduled Start: 11-10-2024 End: 11-10-2024 ambulatory FRANCISCO BAHENA Facility:[facility] Start: 11-10-2024 End: 11-10-2024 Patient encounter procedure Francisco Bahena MD Work Phone: Family Medicine [place] Comment on above: Rib pain on left anjelica e (Primary Dx); Situational depression; Chronic constipation; Elevated blood sugar; Essential hypertension, benign; Gastroesophageal reflux disease, unspecified whether esophagitis present; Thyroid nodule; Medication management; Iron deficiency anemia, unspecified iron deficiency anemia type Start: 11-06-2024 End: 11-06-2024 ambulatory RIAZ WILLIAMSON Facility:[facility] Start: 11-05-2024 End: 11-05-2024 Refill Francisco Bahena MD Work Phone: Family [place] Comment on above: Refill Request Start: 11-02-2024 End: 11-02-2024 ambulatory Treatment [facility] Work Phone: Hematology/Oncology Comment on above: Iron deficiency anem ia, unspecified iron deficiency anemia type (Primary Dx) Start: 10-31-2024 End: 10-31-2024 ambulatory Treatment 15 [facility] Work Phone: Hematology/Oncology Comment on above: Iron deficiency anem ia, unspecified iron deficiency anemia type (Primary Dx) Start: 10-29-2024 End: 10-30-2024 ambulatory Treatment 15 [facility] Work Phone: Hematology/Oncology Comment on above: Iron deficiency anem ia, unspecified iron deficiency anemia type (Primary Dx) Refill Request Start: 10-25-2024 End: 10-25-2024 ambulatory Treatment 15 [facility] Work Phone: Hematology/Oncology Comment on above: Iron deficiency anem ia, unspecified iron deficiency anemia type (Primary Dx) Start: 10-23-2024 End: 10-23-2024 ambulatory Treatment 15 [facility] Work Phone: Hematology/Oncology Comment on above: Iron deficiency anem ia, unspecified iron deficiency anemia type (Primary Dx) Start: 10-22-2024 End: 10-23-2024 Orders Only Riaz Williamson Work Phone: Hematology/Oncology Comment on above: Refill Request Start: 10-18-2024 End: 10-18-2024 Patient encounter procedure Cherelle Benavides PA-C Work Phone: [facility] [place] Comment on above: Situational depressi on (Primary Dx); Dementia without behavioral disturbance (HCC) Start: 10-18-2024 End: 10-18-2024 ambulatory CHERELLE BENAVIDES Facility:[facility] Start: 10-16-2024 End: 10-16-2024 ambulatory Riaz Williamson Work Phone: Hematology/Oncology Comment on above: Iron deficiency anem ia, unspecified iron deficiency anemia type Start: 10-16-2024 End: 10-16-2024 Patient encounter procedure Riaz Teri Work Phone: Hematology/Oncology Start: 10-11-2024 End: 10-12-2024 Telephone encounter Francisco Bahena MD Work Phone: [facility] [place] Comment on above: Results Start: 10-10-2024 End: 10-11-2024 Telephone encounter Francisco Bahena MD Work Phone: [facility] [place] Comment on above: Results Start: 10-10-2024 End: 10-10-2024 Subsequent hospital visit by physician [facility] [place] Work Phone: Radiology Comment on above: Rib pain on left anjelica e [R07.81] Start: 10-10-2024 End: 10-10-2024 ambulatory FRANCISCO BAHENA Facility:[facility] Start: 10-10-2024 End: 10-10-2024 Patient encounter procedure Francisco Bahena MD Work Phone: [facility] [place] Comment on above: Cold intolerance (Pr imary Dx); Rib pain on left side; Iron deficiency anemia, unspecified iron deficiency anemia type Start: 10-09-2024 End: 10-10-2024 Refill Cherelle Benavides PA-C Work Phone: [facility] [place] Comment on above: Refill Request Start: 09-25-2024 End: 09-25-2024 Chart abstracting Francisco Bahena MD Work Phone: [facility] [place] Comment on above: Outside PT/OT (Disch arge Summary/) Start: 09-21-2024 End: 09-21-2024 Patient encounter procedure Quinten Yu MD Work Phone: Neurology Comment on above: Dementia without beh avioral disturbance (HCC) (Primary Dx) Start: 09-21-2024 End: 09-21-2024 ambulatory QUINTEN YU JR Facility:[facility] Start: 09-10-2024 End: 09-10-2024 ambulatory Francisco Bahena MD Work Phone: [facility] Comment on above: Iron supplements Start: 09-06-2024 End: 09-10-2024 Refill Trinidad Roque APRN.TIME SIGNAL WIRER Work Phone: [facility] Comment on above: Refill Request Start: 09-03-2024 End: 09-04-2024 Telephone encounter Francisco Bahena MD Work Phone: [facility] Comment on above: Results; Internal Re ferrals/resources (Hem/Onc) Start: 08-31-2024 End: 08-31-2024 Refill Yun Coles MD Work Phone: Urology Comment on above: Refill Request Start: 08-30-2024 End: 08-30-2024 ambulatory FRANCISCO BAHENA Facility:[facility] Start: 08-30-2024 End: 08-30-2024 Telephone encounter Francisco Bahena MD Work Phone: [facility] Comment on above: Results Start: 08-29-2024 ambulatory Francisco Bahena Facility :[facility] Start: 08-29-2024 End: 08-29-2024 ambulatory Francisco Bahena Facility:[facility] Start: 08-17-2024 End: 08-20-2024 Refill Trinidad Roque APRN.TIME SIGNAL WIRER Work Phone: [facility] Comment on above: Refill Request Start: 08-10-2024 End: 08-11-2024 ambulatory Francisco Bahena MD Work Phone: [facility] Comment on above: Medication not renew able per My Chart Start: 08-08-2024 End: 08-09-2024 Telephone encounter [facility] Comment on above: Results Start: 08-07-2024 End: 08-07-2024 ambulatory FRANCISCO BAHENA Facility:[facility] Start: 07-30-2024 End: 07-30-2024 Telephone encounter Trinidad Roque APRN.CNP Work Phone: [facility] Comment on above: Results Start: 07-25-2024 End: 07-25-2024 ambulatory TRINIDAD ROQUE Facility:[facility] Start: 07-25-2024 End: 07-25-2024 Subsequent hospital visit by physician [facility] Cat Scan Comment on above: Left upper quadrant abdominal pain [R10.12] Start: 07-23-2024 End: 07-23-2024 ambulatory Francisco Bahena MD Work Phone: [facility] Comment on above: Weakness of both low er extremities (Primary Dx) Start: 07-23-2024 End: 07-23-2024 Follow-up encounter Francisco Bahena MD Work Phone: [facility] Comment on above: Iron follow up lab w ork Start: 07-12-2024 End: 07-12-2024 ambulatory Francisco Bahena Facility:[facility] Start: 07-07-2024 End: 07-07-2024 ambulatory Trinidad Roque APRN.TIME SIGNAL WIRER Work Phone: [facility] Comment on above: iron and vitamin C Start: 07-05-2024 End: 07-05-2024 Telephone encounter Trinidad Roque APRN.TIME SIGNAL WIRER Work Phone: [facility] Comment on above: Results Start: 07-04-2024 End: 07-04-2024 ambulatory TRINIDAD ROQUE Facility:[facility] Start: 07-04-2024 End: 07-04-2024 ambulatory Laurel Chavez [facility] Comment on above: Degenerative lumbar spinal stenosis (Primary Dx); Weakness of both lower extremities Start: 06-30-2024 End: 07-02-2024 ambulatory Trinidad Roque APRN.TIME SIGNAL WIRER Work Phone: [facility] Comment on above: Javier Start: 06-28-2024 End: 06-28-2024 Chart abstracting Francisco Bahena MD Work Phone: [facility] [place] Comment on above: Outside PT Start: 06-26-2024 End: 06-26-2024 Patient encounter procedure Belem Huntck FREDERICK Work Phone: Neurology Comment on above: Dementia without beh avioral disturbance (HCC) (Primary Dx) Start: 06-26-2024 End: 06-26-2024 ambulatory BELEMSTEPHANIE NUÑEZ Facility:[facility] Start: 06-25-2024 End: 06-25-2024 Patient encounter procedure Trinidad Roque APRN.CNP Work Phone: [facility] [place] Comment on above: Gastroesophageal ref lux disease, unspecified whether esophagitis present (Primary Dx); Pain in both hands; Essential tremor; Essential hypertension, benign; Lumbar radiculopathy; Chronic LLQ pain; BPH with urinary obstruction; Anemia, chronic disease; Elevated blood sugar; Primary osteoarthritis of both first carpometacarpal joints; Situational depression; Dementia without behavioral disturbance (HCC); ED (erectile dysfunction) of organic origin; Unstable gait; 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; Seasonal allergies; Left upper quadrant abdominal pain; Allergic to IV contrast Start: 06-25-2024 End: 06-25-2024 ambulatory TRINIDAD ROQUE Facility:[facility] Start: 06-21-2024 End: 06-22-2024 Telephone encounter Francisco Bahena MD Work Phone: [facility] [place] Comment on above: Results Start: 06-15-2024 End: 06-15-2024 Subsequent hospital visit by physician [facility] [place] Work Phone: Radiology Comment on above: Pain in both hands [ M79.641, M79.642] Start: 06-15-2024 End: 06-15-2024 ambulatory FRANCISCO BAHENA Facility:[facility] Start: 06-15-2024 End: 06-15-2024 ambulatory FRANCISCO BAHENA Facility:[facility] Start: 06-15-2024 End: 06-15-2024 Patient encounter procedure Francisco Bahena MD Work Phone: [facility] [place] Comment on above: Degenerative lumbar spinal stenosis (Primary Dx); Weakness of both lower extremities; Encounter for immunization; Pain in both hands; Numbness and tingling of both legs Start: 06-11-2024 End: 06-13-2024 ambulatory Francisco Bahena MD Work Phone: [facility] [place] Comment on above: Physical Therapy Start: 06-07-2024 End: 06-07-2024 Patient encounter procedure Trinidad Roque APRN.TIME SIGNAL WIRER Work Phone: [facility] [place] Comment on above: Nightmares (Primary Dx); Dementia without behavioral disturbance (HCC); Situational depression Start: 06-07-2024 End: 06-07-2024 ambulatory Francisco Bahena MD Work Phone: [facility] [place] Comment on above: Nightmares; Sleep Pr oblem Nightmare Start: 05-29-2024 End: 05-30-2024 Refill Cherelle Benavides PA-C Work Phone: [facility] [place] Comment on above: Refill Request Start: 05-09-2024 Refill Trinidad reid PRODUCTION ENGINEER TRACK.TIME SIGNAL WIRER Work Phone: [facility] [place] Comment on above: Refill Request Start: 05-04-2024 End: 05-04-2024 ambulatory YUN COLES Facility:[facility] Start: 05-04-2024 End: 05-04-2024 Patient encounter procedure Yun Coles MD Work Phone: Urology Comment on above: Recurrent UTI (Prima ry Dx); Incomplete bladder emptying Start: 04-12-2024 Refill Cherelle Durham on PA-C Work Phone: [facility] [place] Comment on above: Refill Request Start: 04-05-2024 Refill Cherelle Durham on PA-C Work Phone: [facility] [place] Comment on above: Refill Request Start: 03-13-2024 End: 03-13-2024 Patient encounter procedure Aris Baeza MD Work Phone: [facility] Comment on above: Other secondary kyph osis, thoracic region (Primary Dx); Scoliosis of lumbar spine, unspecified scoliosis type Start: 03-13-2024 End: 03-13-2024 Subsequent hospital visit by physician Garrett Lr Work Phone: [facility] General Comment on above: Scoliosis of lumbar spine, unspecified scoliosis type [M41.9] Start: 03-01-2024 Telephone encounter Francisco Bahena MD Work Phone: Family Medicine [place] Comment on above: Results Start: 02-29-2024 ambulatory Francisco roy MD Work Phone: Family Medicine [place] Comment on above: Explosive diarreahea Start: 02-26-2024 Refill Cherelle Busby on PA-C Work Phone: Family [facility] [place] Comment on above: Refill Request Start: 02-23-2024 End: 02-23-2024 Patient encounter procedure Francisco Bahena MD Work Phone: Family [facility] [place] Comment on above: Diarrhea, unspecifie d type (Primary Dx); Dark stools Start: 02-19-2024 ambulatory Francisco roy MD Work Phone: Family [facility] [place] Comment on above: Increase in medicati on Refill Request Start: 01-31-2024 ambulatory Francisco roy MD Work Phone: Family [facility] [place] Comment on above: Special Request Start: 01-23-2024 Telephone encounter Francisco Bahena MD Work Phone: Family [facility] [place] Comment on above: Results Start: 01-20-2024 Telephone encounter Francisco Bahena MD Work Phone: Family [facility] [place] Comment on above: Results Start: 01-20-2024 End: 01-20-2024 Subsequent hospital visit by physician [facility] Work Phone: Radiology Comment on above: Thyroid nodule [E04. 1] Start: 01-14-2024 ambulatory Yun Coles MD Work Phone: Urology Comment on above: Need your advise Start: 01-06-2024 Telephone encounter Yun chavez MD Work Phone: Urology Comment on above: Medication Problem Start: 01-06-2024 End: 01-06-2024 Patient encounter procedure Yun Coles MD Work Phone: Urology Comment on above: Recurrent UTI (Prima ry Dx) Start: 01-03-2024 Telephone encounter Angela Ma nohue PA-C Work Phone: Urology Comment on above: Results Start: 12-28-2023 End: 12-28-2023 Patient encounter procedure Angela MaMaxime PA-C Work Phone: Urology Comment on above: Nephrolithiasis (Dl paul Dx); Screening for genitourinary condition; Complicated UTI (urinary tract infection) Start: 12-27-2023 ambulatory Raisa Lloyd RN [facility] Comment on above: ACM TAHIRA RN ( /E.D. Utilization Review per Payer Request. ) Start: 12-23-2023 Patient encounter procedure Raisa Lloyd RN [facility] Work Phone: Start: 12-09-2023 End: 12-09-2023 Office outpatient visit 15 minutes Valeria Jimenez APRN.CNP Work Phone: [facility] Comment on above: Cervical spondylosis without myelopathy (Primary Dx) Start: 11-28-2023 Telephone encounter Francisco Gipson [facility] Start: 11-26-2023 Refill Trinidad reid APRN.CNP Work Phone: [facility] [place] Comment on above: Refill Request Start: 11-25-2023 Telephone encounter Francisco Bahena MD Work Phone: [facility] [place] Comment on above: Results Start: 11-25-2023 End: 11-25-2023 Subsequent hospital visit by physician [employer] [employer] [facility] (I-Stat/1.5t) Work Phone: Radiology Comment on above: Memory deficits [R41 .3] Start: 11-24-2023 Telephone encounter Francisco Bahena MD Work Phone: [facility] [place] Comment on above: Results Start: 11-22-2023 Telephone encounter Francisco Bahena MD Work Phone: [facility] [place] Comment on above: Results Start: 11-22-2023 End: 11-22-2023 Subsequent hospital visit by physician Xr [facility] [place] Work Phone: Radiology Comment on above: Left hip pain [M25.5 52] Start: 11-16-2023 Telephone encounter Sebastian Adames MD Work Phone: [facility] Comment on above: Procedure Start: 11-14-2023 End: 11-14-2023 ambulatory Rigoberto Church MD Work Phone: [facility] Comment on above: Procedure Start: 11-14-2023 End: 11-14-2023 Patient encounter procedure Rigoberto Church MD Work Phone: [facility] Start: 11-13-2023 Refill Francisco roy MD Work Phone: [facility] Comment on above: Refill Request Start: 11-04-2023 End: 11-04-2023 Patient encounter procedure Yolanda Victoria PRODUCTION ENGINEER TRACK.TIME SIGNAL WIRER Work Phone: Urology Comment on above: Complicated UTI (uri nary tract infection) (Primary Dx); Left nephrolithiasis Start: 10-27-2023 End: 10-27-2023 Orders Only Mila Palma [facility] Comment on above: Complicated UTI (uri nary tract infection) LLQ pain [R10.32] Start: 10-13-2023 End: 07-31-2024 Telephone encounter Aly Guardado MD Work Phone: General Surgery Comment on above: 10/27/2023 [facility] Start: 09-28-2023 Non-patient / Non-visit [facility] Ch[facility]ag [facility] Work Phone: Start: 09-27-2023 Non-patient / Non-visit Dr. Chirag Bahena Work Phone: [facility] Work Phone: Start: 09-26-2023 Non-patient / Non-visit Dr. Chirag Bahena Work Phone: [facility] Work Phone: Start: 09-25-2023 Non-patient / Non-visit Dr. Chirag Bahena Work Phone: [facility] Work Phone: Start: 09-25-2023 End: 09-28-2023 Evaluation and management of inpatient [facility]-Progressive Care Unit Work Phone: Start: 09-10-2023 End: 09-11-2023 Emergency department patient visit [facility]-Emergency Department Work Phone: Start: 09-02-2023 Telephone encounter Rigoberto Church MD Work Phone: [facility] Comment on above: Procedure Follow Up (Dr. Church 08/29/23) Start: 09-01-2023 Telephone encounter Francisco Bahena MD Work Phone: [facility] Start: 08-30-2023 Telephone encounter Francisco Bahena MD Work Phone: [facility] Start: 08-30-2023 End: 08-30-2023 Subsequent hospital visit by physician [facility] Work Phone: [facility] Comment on above: Abdominal pain, left lower quadrant [R10.32] Start: 08-25-2023 End: 08-25-2023 Patient encounter procedure Francisco Bahena MD Work Phone: [facility] Comment on above: Left lower quadrant abdominal pain (Primary Dx) Start: 08-22-2023 ambulatory Francisco roy MD Work Phone: [facility] Comment on above: Hernia Start: 08-15-2023 Refill Francisco roy MD Work Phone: [facility] Comment on above: Refill Request Start: 08-08-2023 Refill Francisco roy MD Work Phone: [facility] Comment on above: Refill Request Start: 07-26-2023 End: 07-26-2023 ambulatory Laurel O'Elan PT [facility] Comment on above: Cervical spondylosis without myelopathy (Primary Dx) Start: 07-20-2023 Telephone encounter Ludivinadonna suresh PRODUCTION ENGINEER TRACK.TIME SIGNAL WIRER Work Phone: [facility] Comment on above: Future Appointment Start: 07-19-2023 End: 07-19-2023 ambulatory Ludivina Nunez PRODUCTION ENGINEER TRACK.TIME SIGNAL WIRER Work Phone: [facility] Comment on above: Cervical spondylosis without myelopathy (Primary Dx) Start: 07-19-2023 End: 07-19-2023 Telemedicine consultation with patient Ludivinadonna Nunez APRN.TIME SIGNAL WIRER Work Phone: [facility] Start: 07-15-2023 Telephone encounter Rigoberto Church MD Work Phone: [facility] Comment on above: Procedure Follow Up (DR CHURCH 07/13/23) Start: 07-13-2023 End: 07-13-2023 [facility] visit, estab pt Rigoberto Church MD Work Phone: [facility] Comment on above: Procedure; Neck Pain ; Established Patient Start: 07-13-2023 End: 07-13-2023 Patient encounter procedure Rigoberto Church MD Work Phone: [facility] Start: 07-11-2023 End: 07-11-2023 ambulatory Anayeli Montgomery STRANNER Work Phone: [facility] Comment on above: Cervical spondylosis without myelopathy (Primary Dx) Start: 07-05-2023 End: 07-05-2023 ambulatory Laurel Pham'Elan PT [facility] Comment on above: Cervical spondylosis without myelopathy (Primary Dx) Start: 06-10-2023 Orders Only Rigoberto Church MD Work Phone: [facility] Comment on above: Cervical spondylosis without myelopathy (Primary Dx) Start: 06-09-2023 Telephone encounter Rigoberto Church MD Work Phone: [facility] Comment on above: Injection Questions Start: 06-09-2023 End: 06-09-2023 Subsequent hospital visit by physician Garrett [facility] [place] Carrington Work Phone: Radiology Comment on above: Cervical spondylosis without myelopathy [M47.812] Start: 06-09-2023 End: 06-09-2023 Patient encounter procedure Rigoberto Church MD Work Phone: [facility] Comment on above: Cervical spondylosis without myelopathy (Primary Dx); Lumbar spondylosis; Lumbar radiculopathy; Hereditary and idiopathic peripheral neuropathy Start: 06-03-2023 End: 06-03-2023 Patient encounter procedure Yun Coles MD Work Phone: Urology Comment on above: Recurrent UTI (Prima ry Dx); Incomplete bladder emptying; BPH with obstruction/lower urinary tract symptoms Start: 05-02-2023 Refill Francisco roy MD Work Phone: [facility] Comment on above: Refill Request Start: 04-19-2023 MC Get Medical Advice Francisco Bahena MD Work Phone: [facility] Comment on above: Unable to get a refi ll. Start: 04-12-2023 End: 04-12-2023 ambulatory Laurel Chavez PT [facility] Comment on above: Chronic neck pain (P rimary Dx); Unstable gait; Lumbar back pain Start: 04-07-2023 Telephone encounter Cherelle muhammad PA-C Work Phone: [facility] [place] Comment on above: Results Start: 04-05-2023 End: 04-05-2023 Patient encounter procedure Cherelle Benavides PA-C Work Phone: [facility] [place] Comment on above: Essential hypertensi on, benign (Primary Dx); Elevated blood sugar; 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 loss; Chronic neck pain; Lumbar back pain; Encounter for lipid screening for cardiovascular disease; Unstable gait; Chronic constipation; Gastroesophageal reflux disease, unspecified whether esophagitis present; Anemia due to other cause, not classified; Fatigue, unspecified type; Need for vaccination Start: 03-18-2023 End: 03-18-2023 Office outpatient visit 15 minutes Javier Keys MD Work Phone: Hematology/Oncology Comment on above: Monoclonal gammopath y (Primary Dx); Anemia, unspecified type Start: 03-09-2023 End: 03-09-2023 Subsequent hospital visit by physician Xr [facility] [place] Carrington Work Phone: Radiology Comment on above: S/P lumbar fusion [Z 98.1] Start: 03-08-2023 Orders Only Ellis Pham Work Phone: Hematology/Oncology Start: 01-27-2023 Refill Francisco roy MD Work Phone: [facility] Comment on above: Refill Request Start: 01-26-2023 End: 01-26-2023 Nursing evaluation of patient and report Nurse Surg Specialty [facility] Stro Work Phone: General Surgery Comment on above: Prostate disorder (P rimary Dx) Start: 01-21-2023 Telephone encounter Yun chavez MD Work Phone: Urology Comment on above: Patient Question Start: 01-21-2023 End: 01-21-2023 Patient encounter procedure Yun Coles MD Work Phone: Urology Comment on above: BPH with obstruction /lower urinary tract symptoms (Primary Dx); Gross hematuria Start: 01-19-2023 End: 01-19-2023 Nursing evaluation of patient and report Nurse Surg Specialty [facility] Stro Work Phone: General Surgery Comment on above: Prostate disorder (P rimary Dx) Start: 01-17-2023 Telephone encounter Francisco Bahena MD Work Phone: [facility] [place] Comment on above: Medication Problem Start: 01-15-2023 Telephone encounter Otoniel norton MD Work Phone: [facility] Provider Adult Comment on above: Question Refill Request Start: 01-14-2023 Telephone encounter Yun chavez MD Work Phone: Urology Comment on above: Appointment Start: 01-12-2023 Orders Only Yun Coles MD Work Phone: Urology Comment on above: Patient Update (Urin e culture results and treatment) Start: 01-10-2023 Refill Cherelle Busby on PA-C Work Phone: [facility] Comment on above: Refill Request Start: 01-05-2023 End: 01-05-2023 Admission to establishment [facility] 1 Work Phone: [facility] Start: 01-05-2023 End: 01-05-2023 ambulatory [place] [id number] Work Phone: Pre Anesthesia Comment on above: Pre-operative examin ation (Primary Dx); Bilateral carotid artery stenosis; Essential hypertension, benign; Gastroesophageal reflux disease, unspecified whether esophagitis present; 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 loss; Peripheral edema; 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; Situational anxiety; Thyroid nodule; Spondylosis of lumbar region without myelopathy or radiculopathy; Osteoporosis, unspecified osteoporosis type, unspecified pathological fracture presence; Cognitive impairment; BPH with urinary obstruction; Abnormal SPEP; Urinary tract infection without hematuria, site unspecified Start: 01-05-2023 End: 01-05-2023 Preprocedural examination done [place] [id number] Work Phone: Pre Anesthesia Start: 01-03-2023 End: 01-03-2023 ambulatory Treatment Rm 4 John [facility] Wstr Work Phone: Hematology/Oncology Comment on above: Iron deficiency anem ia due to chronic blood loss (Primary Dx) Start: 01-03-2023 Chart abstracting Francisco smith MD Work Phone: [facility] Comment on above: ER F/U Start: 01-02-2023 End: 01-02-2023 Emergency department patient visit [facility] Start: 12-30-2022 End: 12-30-2022 ambulatory Treatment Rm 13 John [facility]str Work Phone: Hematology/Oncology Comment on above: Iron deficiency anem ia due to chronic blood loss (Primary Dx) Start: 12-28-2022 Refill Francisco roy MD Work Phone: [facility] Comment on above: Refill Request Start: 12-27-2022 Telephone encounter Financial Navigator John Work Phone: Financial Services Comment on above: Benefits Investigati on Start: 12-24-2022 End: 12-24-2022 ambulatory Treatment Rm 9 John [facility] Work Phone: Hematology/Oncology Comment on above: Iron deficiency anem ia due to chronic blood loss (Primary Dx) Start: 12-22-2022 End: 12-22-2022 ambulatory Treatment Rm 1 John [facility] Work Phone: Hematology/Oncology Comment on above: Iron deficiency anem ia due to chronic blood loss (Primary Dx) Start: 12-21-2022 ambulatory Yun Coles MD Work Phone: Urology Start: 12-17-2022 End: 12-17-2022 Telemedicine consultation with patient Yun Coles MD Work Phone: [facility] Start: 12-17-2022 End: 12-17-2022 ambulatory Treatment Rm 9 John [facility] [employer] Work Phone: Hematology/Oncology Comment on above: Iron deficiency anem ia due to chronic blood loss (Primary Dx) BPH with obstruction /lower urinary tract symptoms (Primary Dx); Iron deficiency anemia, unspecified iron deficiency anemia type Start: 12-15-2022 Orders Only Raul De Los Santos MD Work Phone: Hematology/Oncology Comment on above: Iron deficiency anem ia due to chronic blood loss (Primary Dx) Appointment (Venofer ) Start: 12-13-2022 End: 12-13-2022 Nursing evaluation of patient and report [employer] U[facility] Comment on above: Urinary urgency (Dl paul Dx); Feeling of incomplete bladder emptying Start: 12-07-2022 Telephone encounter Coco brooks MD Work Phone: Allergy Comment on above: Results Patient Update Start: 11-25-2022 ambulatory Francisco roy MD Work Phone: [facility] Comment on above: Dr. Danilo Payne Start: 11-24-2022 End: 11-24-2022 Patient encounter procedure Coco Payne MD Work Phone: Allergy Comment on above: Pruritic disorder (P rimary Dx) Start: 11-19-2022 End: 11-19-2022 Patient encounter procedure Yun Coles MD Work Phone: Urology Comment on above: Recurrent UTI (Prima ry Dx); Screening for genitourinary condition; BPH with obstruction/lower urinary tract symptoms; Incomplete bladder emptying Start: 11-17-2022 End: 11-17-2022 ambulatory SOFIA GISELE Facility:[facility] Start: 11-17-2022 End: 11-17-2022 ambulatory Essence Castañeda [facility] [employer] [facility] Work Phone: [facility] Outpatient Speech Therapy Comment on above: Dysphagia, unspecifi ed type (Primary Dx) Start: 11-10-2022 ambulatory Francisco roy MD Work Phone: [facility] Comment on above: Lymphedema Start: 11-08-2022 End: 11-08-2022 Emergency department patient visit [facility] Start: 11-08-2022 ambulatory Francisco roy MD Work Phone: [facility] Comment on above: Swollen Feet Start: 11-04-2022 End: 11-04-2022 ambulatory FRANCISCO BAHENA Facility:[facility] Start: 10-29-2022 Refill Francisco roy MD Work Phone: [facility] Comment on above: Refill Request Start: 10-18-2022 End: 10-18-2022 ambulatory FRANCISCO BAHENA Facility:[facility] Start: 10-15-2022 Telephone encounter Yun chavez MD Work Phone: [facility] Comment on above: Medication Follow-up Start: 10-14-2022 Telephone encounter Francisco Bahena MD Work Phone: Family Medicine [place] Comment on above: Results Start: 10-12-2022 End: 10-12-2022 Patient encounter procedure Trinidad Roque TIME SIGNAL WIRER Work Phone: [facility] [place] Comment on above: Memory change (Prima ry Dx) Start: 10-04-2022 End: 10-04-2022 Patient encounter procedure Francisco Bahena MD Work Phone: [facility] [place] Comment on above: Medicare annual well ness visit, subsequent (Primary Dx); Essential hypertension, benign; Elevated blood sugar; Bilateral carotid artery stenosis; Thyroid nodule; Situational depression; Situational anxiety; Gastroesophageal reflux disease, unspecified whether esophagitis present; BPH with urinary obstruction; Unstable gait; 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; Anemia due to other cause, not classified; Memory difficulties; Medication management; Advance directive discussed with patient; Esophageal diverticulum; Degenerative lumbar spinal stenosis Start: 09-28-2022 End: 09-28-2022 ambulatory FRANCISCO BAHENA Facility:[facility] Start: 09-27-2022 Refill Petey Brow n PA-C Work Phone: Family [facility] [place] Comment on above: Refill Request Start: 09-02-2022 End: 09-02-2022 Patient encounter procedure Nan Zaragoza MD Work Phone: Otolaryngology Comment on above: Vocal cord paresis ( Primary Dx) Start: 08-30-2022 Refill Francisco roy MD Work Phone: Family [facility] [place] Comment on above: Refill Request Transition Of Care ( initial encounter post hospital discharge 08/27/22) Start: 08-27-2022 Orders Only Petey Brow n PA-C Work Phone: Cardiology Comment on above: Vocal cord paralysis (Primary Dx) Start: 08-25-2022 End: 08-27-2022 ambulatory SOFIA WILDE Facility:[facility] Start: 08-23-2022 Refill Cherelle Busby on PA-C Work Phone: [facility] Comment on above: Refill Request Start: 08-20-2022 Telephone encounter Sofia waldron MD Work Phone: Thoracic Surgery Comment on above: Patient Update Start: 08-18-2022 End: 08-18-2022 Patient encounter procedure Yolanda Clark Julien PRODUCTION ENGINEER TRACK.TIME SIGNAL WIRER Work Phone: Urology Comment on above: Recurrent UTI (Prima ry Dx); BPH with obstruction/lower urinary tract symptoms; Nephrolithiasis Start: 08-17-2022 ambulatory FRANCISCO BAHENA Facili ty:[facility] Start: 08-17-2022 End: 08-17-2022 Subsequent hospital visit by physician Gi/Gu 1 [facility] (I-Stat) Work Phone: Radiology Comment on above: Dysphagia, unspecifi ed type [R13.10] Start: 08-16-2022 End: 08-17-2022 Emergency department patient visit Dr. Francisco Bahena Work Phone: [facility] Start: 08-13-2022 ambulatory Sofia Wilde MD Work Phone: Thoracic Surgery Start: 08-09-2022 Telephone encounter Sofia waldron MD Work Phone: Cardiology Comment on above: Patient Update Start: 08-08-2022 ambulatory Angela reid PA-C Work Phone: Urology Comment on above: UTI Start: 08-05-2022 ambulatory Sofia Wilde MD Work Phone: Thoracic Surgery Comment on above: Final Pathology Repo rt Start: 08-05-2022 E-mail encounter fro m caregiver Sofia Wilde MD Work Phone: [facility] Start: 08-05-2022 Telephone encounter Sofia waldron MD Work Phone: Thoracic Surgery Comment on above: Patient Update (post op discharge update call) Start: 08-04-2022 Patient Outreach Dorothy reddy [facility] Work Phone: Pharmacy Comment on above: Transition Of Care ( TCM Pharmacy-Hospital discharge 08/02/22/) Start: 07-29-2022 End: 08-02-2022 ambulatory SOFIA WILDE Facility:[facility] Start: 07-23-2022 Telephone encounter Sofia waldron MD Work Phone: Cardiothoracic Comment on above: Patient Question; Pr eOp Call Patient Question ( B actrim) Start: 07-21-2022 ambulatory Sofia Wilde MD Work Phone: Thoracic Surgery Start: 07-20-2022 End: 07-20-2022 Get Medical Advice Angela Harry PA-C Work Phone: Urology Comment on above: Bactrim order Acquired spondylolis thesis (Primary Dx); S/P lumbar fusion; Degenerative scoliosis Today's visit Degenerative scolios is in adult patient [M41.50] Start: 07-20-2022 Patient encounter status Dianelys Wilde MD Work Phone: Thoracic Surgery Start: 07-19-2022 Telephone encounter Sofia waldron MD Work Phone: Thoracic Surgery Comment on above: Patient Question Radiology XR Start: 07-17-2022 ambulatory Angela Pham'Negin e PA-C Work Phone: Urology Comment on above: Urinalysis Start: 07-16-2022 End: 07-16-2022 ambulatory Michael Vaughn MD Work Phone: Cardiology Comment on above: heart catheterizatio n Start: 07-16-2022 E-mail encounter fro m caregiver Michael Vaughn MD Work Phone: [facility] Start: 07-13-2022 Telephone encounter Brinda Colon MD Work Phone: [facility] Comment on above: Research Outreach Start: 07-12-2022 ambulatory FRANCISCO Stephens ty:[facility] Start: 07-12-2022 ambulatory FRANCISCO Stephens ty:[facility] Start: 07-12-2022 Encounter for other preprocedural examination SOFIA WILDE [facility] Start: 07-12-2022 Encounter for preprocedural cardiovascular examination SOFIA WILDE [facility] Start: 07-12-2022 End: 07-12-2022 Patient encounter status [facility] 2 Work Phone: Molecular Imaging Start: 07-12-2022 End: 07-12-2022 Subsequent hospital visit by physician [facility] Imaging [facility] 2 Work Phone: Molecular Imaging Comment on above: Preop cardiovascular exam [Z01.810] Start: 07-09-2022 End: 07-09-2022 ambulatory [facility] 1 Work Phone: Pre Anesthesia Comment on above: Pre-operative examin ation (Primary Dx); Essential hypertension, benign; Gastroesophageal reflux disease, unspecified whether esophagitis present; Hiatal hernia; Osteoporosis, unspecified osteoporosis type, unspecified pathological fracture presence; Peripheral edema; 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; Situational anxiety; Spondylosis of lumbar region without myelopathy or radiculopathy; Bilateral carotid artery stenosis; BPH with urinary obstruction; Thyroid nodule Refill Request Start: 07-09-2022 Telephone encounter Belem umanzor RN Cardiology Lab Comment on above: Reminder Call Start: 07-09-2022 End: 07-09-2022 Admission to establishment [facility] 1 Work Phone: [facility] Start: 07-09-2022 End: 07-09-2022 Preprocedural examination done [facility] 1 Work Phone: Pre Anesthesia Start: 07-02-2022 End: 07-02-2022 ambulatory Respiratory Therapist [facility] Work Phone: Pulmonary Medicine Comment on above: Spirometry Start: 07-02-2022 End: 07-02-2022 Patient encounter procedure Respiratory Therapist [facility] Phone[facility] [place] [place] Start: 07-02-2022 End: 07-02-2022 Patient encounter status Respiratory Therapist [facility] Work Phone: Pulmonary Medicine Start: 06-25-2022 Telephone encounter Sofia waldron MD Work Phone: Thoracic Surgery Comment on above: Patient Question Start: 06-23-[address] [facility] Sofia Wilde MD Work Phone: Thoracic Surgery Comment on above: Upcoming Lung Surger y Start: 06-23-2022 E-mail encounter fro m caregiver Sofia Wilde MD Work Phone: [facility] Start: 06-23-2022 End: 06-23-2022 ambulatory SOFIA WILDE Facility:[facility] Start: 06-23-2022 Encounter for other preprocedural examination SOFIA GISELE [facility] Start: 06-23-2022 Encounter for preprocedural cardiovascular examination SOFIA GISELE [facility] Start: 06-23-2022 End: 06-23-2022 Patient encounter procedure Sofia Wilde MD Work Phone: Thoracic Surgery Comment on above: Preoperative testing (Primary Dx); Preop cardiovascular exam; Esophageal diverticulum; Encounter for other preprocedural examination Start: 06-23-2022 End: 06-23-2022 Patient encounter status Sofia Wilde MD Work Phone: Thoracic Surgery Start: 06-16-2022 Telephone encounter Sofia waldron MD Work Phone: Thoracic Surgery Comment on above: Appointment Start: 06-14-2022 Telephone encounter Hvi Thorac ic Surg Consult [facility] Comment on above: External Referrals/r esources; Consult Start: 06-10-2022 Telephone encounter Yash Monroe MA [facility] [place] Comment on above: Appointment Start: 06-09-2022 ambulatory Francisco roy MD Work Phone: [facility] [place] Comment on above: Hiatal Hernia Start: 05-27-2022 Refill Francisco roy MD Work Phone: [facility] [place] Comment on above: Refill Request Start: 05-21-2022 End: 05-21-2022 Patient encounter procedure Cherelle Benavides PA-C Work Phone: Family [facility] [place] Comment on above: Peripheral edema (Pr imary Dx) Start: 05-18-2022 ambulatory Francisco roy MD Work Phone: [facility] [place] Comment on above: [facility] Start: 05-17-2022 End: 05-17-[address] Francisco Bahena Work Phone: [facility] Work Phone: Start: 05-17-2022 End: 05-17-[address] Francisco Bahena Work Phone: [facility] Start: 05-03-2022 Non-patient / Non-visit Dr. Chirag Bahena Work Phone: [facility] Start: 05-03-2022 End: 05-03-2022 Emergency department patient [facility] Start: 04-09-2022 End: 04-09-2022 Patient encounter procedure [facility] Start: 04-02-2022 Telephone encounter Francisco Bahena MD Work Phone: [facility] Comment on above: Patient Question Start: 03-30-2022 Refill Francisco roy MD Work Phone: [facility] Comment on above: Refill Request Start: 02-23-2022 Get Medical Advice Francisco Bahena MD Work Phone: [facility] Comment on above: Problem reordering Q uinapril Start: 02-02-2022 ambulatory Francisco roy MD Work Phone: [facility] Comment on above: [place] Chlorothiazide Start: 01-29-2022 End: 01-29-2022 Patient encounter procedure Angela Harry PA-C Work Phone: Urology Comment on above: Nephrolithiasis (Dl paul Dx); Screening for genitourinary condition; BPH with obstruction/lower urinary tract symptoms Start: 01-19-2022 End: 01-19-2022 Patient encounter procedure Aris Baeza MD Work Phone: [facility] Comment on above: Acquired spondylolis thesis (Primary Dx); S/P lumbar fusion; Degenerative scoliosis Start: 01-11-2022 Telephone encounter Francisco Bahena MD Work Phone: Family [facility] [place] Comment on above: Results Start: 01-08-2022 End: 01-08-2022 Subsequent hospital visit by physician [facility] (I-Stat) Work Phone: Cat Scan Comment on above: Lower abdominal pain [R10.30] Start: 01-01-2022 End: 01-01-2022 Subsequent hospital visit by physician Xr [facility] [place] Work Phone: Radiology Comment on above: Pain in pelvis [R10. 2] Start: 12-27-2021 ambulatory Cherelledonna Busby on PA-C Work Phone: [facility] [place] Start: 12-27-2021 Patient encounter procedure Cherelle Benavides PA-C Work Phone: [facility] [place] Comment on above: Change appointment o bjective Start: 09-10-2021 Patient encounter procedure Cherelle Benavides PA-C Work Phone: [facility] Work Phone: Procedures Date Procedure Procedure Detail Performing Clinician Start: 04-16-[address] Francisco Bahena MD Work Phone: Start: 04-14-2025 Serum inorganic phos phate measurement Dr. Francisco Bahena MD Work Phone: Start: 04-12-2025 Plain chest X-ray Dr. Amber Bahena MD Work Phone: Start: 04-12-[address] Francisco Bahena MD Work Phone: Start: 04-12-2025 Urnls dip stick/tabl et reagent auto microscopy Dr. Francisco Bahena MD Work Phone: Start: 04-12-[address] Andrea Bahena MD Work Phone: Start: 03-19-2025 Radex entir thrc lmb r crv sac spi w/skull 2/3 vw R Ismael Baeza MD Work Phone: Start: 01-29-2025 Urnls dip stick/tabl et reagent auto microscopy Dr. Francisco Bahena MD Work Phone: Start: 01-29-[address] Francisco Bahena MD Work Phone: Start: 01-29-[address] Andrea Bahena MD Work Phone: Start: 01-10-[address] Francisco Bahena MD Work Phone: Start: 01-08-[address] Andrea Bahena MD Work Phone: Start: 01-08-2025 Urnls dip stick/tabl et reagent auto microscopy Dr. Francisco Bahena MD Work Phone: Start: 01-08-2025 X-ray of lumbar spin e, two or three views Dr. Francisco Bahena MD Work Phone: Start: 01-08-2025 MRI of lumbar spine Dr. Francisco Bahena MD Work Phone: Start: 01-02-2025 Urnls dip stick/tabl et rgnt auto w/o microscopy Angela Harry PA-C Work Phone: Start: 12-31-2024 PFIZER-BIONTECH COVI D-19 VACCINE AGE 12+ YR ([facility] Francisco Bahena MD Work Phone: Start: 12-19-2024 ADULT [place] ANORECTAL MANOMETRY Daniela Noel PRODUCTION ENGINEER TRACK.TIME SIGNAL WIRER Work Phone: Start: 11-23-2024 Bone &/joint imaging whole body Francisco Bahena MD Work Phone: Start: 10-10-2024 Radex ribs uni w/pos teroant ch minimum 3 views Francisco Bahena MD Work Phone: Start: 05-04-2024 Urnls dip stick/tabl et rgnt auto w/o microscopy Yun Coles MD Work Phone: Start: 03-13-2024 Radex entir thrc lmb r crv sac spi w/skull 2/3 vw Naz Rosalie Terry FERGUSON-C Work Phone: Start: 12-28-2023 Culture bacterial quanttative colony count urine Angela Smallsnorma FERGUSON-C Work Phone: Start: 12-28-2023 Urnls dip stick/tabl et rgnt auto w/o microscopy Angela Harry PHYLLIS-C Work Phone: Start: 11-25-2023 Mri brain brain stem w/o contrast material Francisco Bahena MD Work Phone: Start: 11-22-2023 Radex hips bilateral with pelvis minimum 5 views Francisco Bahena MD Work Phone: Start: 11-04-2023 Urnls dip stick/tabl et rgnt auto w/o microscopy Yolanda Victoria PRODUCTION ENGINEER TRACK.TIME SIGNAL WIRER Work Phone: Start: 10-27-2023 Colonoscopy flx dx w /collj spec when pfrmd Aly Guardado MD Work Phone: Start: 09-25-[address] Francisco Bahena Work Phone: Start: 09-24-2023 CT of abdomen and pe lvis without contrast Start: 09-24-2023 Plain chest X-ray Start: 09-24-2023 Bacteria identified in Blood by Culture Dr. Francisco Bahena Work Phone: Start: 09-24-2023 SARS-CoV-2 & FLU Ant igen (Rapid) Start: 09-10-2023 CT of abdomen and pe lvis without contrast Start: 09-10-2023 Urine culture Start: 08-30-2023 Ct abdomen & pelvis w/o contrast material Trinidad Roque PRODUCTION ENGINEER TRACK.TIME SIGNAL WIRER Work Phone: Start: 06-09-2023 Radex spine cervical 6 or more views Rigoberto Church MD Work Phone: Start: 03-09-2023 Radex entir thrc lmb r crv sac spi w/skull 2/3 vw Jori Sams MD Work Phone: Start: 01-21-2023 Urnls dip stick/tabl et rgnt auto w/o microscopy Yun Coles MD Work Phone: Start: 01-02-2023 CT of abdomen and pe lvis with oral contrast Start: 11-19-2022 Urnls dip stick/tabl et rgnt auto w/o microscopy Yun Coles MD Work Phone: Start: 08-18-2022 Urnls dip stick/tabl et rgnt auto w/o microscopy Yolanda Victoria PRODUCTION ENGINEER TRACK.TIME SIGNAL WIRER Work Phone: Start: 08-17-2022 Radiologic exam esop hagus single contrast study Sofia Wilde MD Work Phone: Start: 08-16-2022 CT of abdomen and pe lvis without contrast Dr. Francisco Bahena Work Phone: Start: 08-16-2022 Plain chest X-ray Dr. Amber Bahena Work Phone: Start: 07-29-2022 Antibody screen SOFIA WILDE Comment on above: Order Comment: Speci men Type: BLOOD SPECIMENOrdering Facility: [facility] Address: [address] [place] [address] Performed By: #### T [facility] ####[facility] [id number] [address] [place] Start: 07-20-2022 Radex entir thrc lmb r crv sac spi w/skull 2/3 vw Elias Landers PA-C Work Phone: Start: 07-12-2022 Myocardial spect mul tiple studies Sofia Wilde MD Work Phone: Start: 07-09-2022 Ecg routine ecg w/le ast 12 lds w/i&r [facility] Provider Start: 07-02-2022 End: 07-02-2022 Spmtry w/vc expiratory pat w/wo mxml vol vntj Sofia Wilde MD Work Phone: Start: 05-17-[address] Rmoie Bahena Work Phone: Start: 05-03-2022 Plain chest X-ray Dr. Amber Bahena Work Phone: Start: 04-09-2022 Radiography of esophagus Start: 01-29-2022 Urnls dip stick/tabl et rgnt auto w/o microscopy Angela Harry PA-C Work Phone: Start: 01-08-2022 Ct abdomen & pelvis w/contrast material Francisco Bahena MD Work Phone: Start: 01-01-2022 Radiologic examinati on pelvis 1/2 views Francisco Bahena MD Work Phone: SARS-CoV-2 & FLU Ant igen (Rapid) Dr. Francisco Bahena Work Phone: Plan of Treatment Date Care Activity Detail Author Start: 03-13-2028 Urine microalbumin profile [facility] Start: 12-13-2027 Diabetes Screening Diabetes Screening [facility] Start: 06-07-2027 Diabetes Screening Diabetes Screening [facility] Start: 11-22-2026 Diabetes Screening Diabetes Screening [facility] Start: 09-14-2026 Diabetes Screening Diabetes Screening [facility] Start: 04-05-2026 DIABETES SCREEN DIABETES SCREEN [facility] Start: 04-05-2026 Diabetes Screening Diabetes Screening [facility] Start: 01-15-2026 End: 01-15-2026 Patient encounter procedure 01/15/2026 1:00 PM EDT Office Visit Urology [address] [place] [address] Angela Harry PA-C [address] [place] [address] annual follow up Urology Comment on above: annual follow up Start: 01-06-2026 End: 01-06-2026 Patient encounter procedure Radiology Comment on above: Nephrolithiasis [N20.0] Dx: Nephrolithiasis [N20.0] Start: 10-12-2025 DIABETES SCREEN DIABETES SCREEN [facility] Start: 09-06-2025 End: 09-06-2025 Patient encounter procedure 09/06/2025 11:30 AM EST Office Visit Urology [address] [place] [address] Yun Coles MD [address] [place] [address] 6 month follow up Urology Comment on above: 6 month follow up Start: 08-26-2025 DIABETES SCREEN DIABETES SCREEN [facility] Start: 08-02-2025 End: 08-02-2025 Patient encounter procedure 08/02/2025 1:00 PM EST Office Visit Neurology [address] [place], [place] [phone] Quinten Yu Jr., MD [address] [place] [address] 3 mth f/u dementia, christa 09/21/24 [facility] started Neurology Comment on above: 3 mth f/u dementia, christa 09/21/24 [facility]- Na menda started Start: 08-01-2025 End: 08-01-2025 Follow-up encounter 08/01/2025 2:30 PM EST Visit (SP) Office Hematology/Oncology [address], [place] [id number] Riaz Williamson [address] [place], [place] [id number] OV/FOLLOW UP PER REQUEST* Hematology/Oncology Comment on above: OV/FOLLOW UP PER REQUEST* Start: 07-29-2025 DIABETES SCREEN DIABETES SCREEN [facility] Start: 07-23-2025 End: 07-23-2025 Patient encounter procedure 07/23/2025 3:00 PM EDT Office Visit [facility] [address] [place] [address] Aris Baeza MD [address] [id number] post op per [place] [facility] Comment on above: post op per [place] Start: 07-19-2025 End: 07-19-2025 Patient encounter procedure 07/19/2025 10:20 AM EDT Office Visit Family Medicine [place] [address] [place] [address] Francisco Bahena MD [address] [place], [place] [id number] Surgery Follow up Family [place] Comment on above: Surgery Follow up Start: 07-16-2025 End: 07-16-2025 Patient encounter procedure 07/16/2025 1:40 PM EDT Office Visit Family Medicine [place] [address] [facility] [place], [place] [address] Francisco Bahena MD [address] [place], [place] [id number] Surgery Follow up Family [place] Comment on above: Surgery Follow up Start: 07-10-2025 End: 07-10-2025 Patient encounter procedure 07/10/2025 1:00 PM EDT Office Visit [facility] [address] [place] [phone] Naz Stewart PA-C [address] [place] [address] POST OP [facility] Comment on above: POST OP Start: 07-09-2025 DIABETES SCREEN DIABETES SCREEN [facility] Start: 07-02-2025 End: 07-02-2025 Patient encounter procedure 07/02/2025 1:00 PM EDT Office Visit Family Medicine [place] [address] [facility] [place] [address] Cherelle Benavides PA-C [address] [place], [place] [phone] 6 month follow up Family [place] Comment on above: 6 month follow up Start: 06-21-2025 End: 09-20-2025 Basic metabolic 2000 panel - Serum or Plasma BASIC METABOLIC PANEL Lab Routine Essential hypertension, benign Elevated blood sugar Expected: 06/21/2025, Expires: 09/20/2025 [facility] Comment on above: Expected: 06/21/2025, Expires: Start: 06-21-2025 End: 09-20-2025 CBC W Auto Differential panel - Blood COMPLETE BLOOD COUNT AND DIFFERENTIAL Lab Routine Iron deficiency anemia, unspecified iron deficiency anemia type Expected: 06/21/2025, Expires: 09/20/2025 [facility] Comment on above: Expected: 06/21/2025, Expires: Start: 06-21-2025 End: 09-20-2025 Hemoglobin A1c in Blood HEMOGLOBIN A1C Lab Routine Elevated blood sugar Expected: 06/21/2025, Expires: 09/20/2025 [facility] Comment on above: Expected: 06/21/2025, Expires: Start: 06-21-2025 End: 09-20-2025 LIPID PANEL, NONFASTING LIPID PANEL, NONFASTING Lab Routine Essential hypertension, benign Bilateral carotid artery stenosis Expected: 06/21/2025, Expires: 09/20/2025 [facility] Comment on above: Expected: 06/21/2025, Expires: Start: 06-18-2025 End: 06-18-2025 ambulatory 06/18/2025 1:00 PM EDT Visit (SP) Office Hematology/Oncology [address] [place] [address] Riaz Williamson [address] [place] [address] 6MO OV/WALK IN 3/6 MO LABS* Hematology/Oncology Comment on above: 6MO OV/WALK IN 3/6 MO LABS* Start: 06-17-2025 End: 06-17-2025 ambulatory 06/17/2025 1:00 PM EDT Visit (SP) Office Hematology/Oncology [address] [place] [address] Riaz Williamson [address] [place] [address] 6MO OV/WALK IN 3/6 MO LABS* Hematology/Oncology Comment on above: 6MO OV/WALK IN 3/6 MO LABS* Start: 06-07-2025 End: 06-07-2025 Patient encounter procedure 06/07/2025 3:40 PM EDT Office Visit Neurology [address] [place] [address] Quinten Yu Jr., MD [address] [place] [address] 3 mth f/u dementia, christa 09/21/24 [facility]- [facility] started Neurology Comment on above: 3 mth f/u dementia, christa 09/21/24 WN- Na menda started Start: 05-27-2025 Influenza vaccination Influenza Vaccine (#1) [facility] Start: 05-17-2025 End: 05-17-2025 Admission to same day surgery center 05/17/2025 7:30 AM EDT - 05/17/2025 1:30 PM EDT Surgery Admitting [address] [place] [address] Aris Baeza MD [address] [place] [id number] FUSION POST SP; 7-12 VERTEBR Admitting Comment on above: FUSION POST SP; 7-12 VERTEBR Start: 05-17-2025 End: 05-17-2025 Arthrodesis posterior spinal dfrm 7-12 vrt seg FUSION POST SP; 7-12 VERTEBR Other secondary kyphosis, thoracic region Scoliosis of lumbar spine, unspecified scoliosis type 05/17/2025 7:30 AM EDT [facility] Start: 05-17-2025 End: 05-17-2025 Osteotomy spine posterior 3 column lumbar LUMBAR OSTEOTOMY 3 COLUMN POS APPR Other secondary kyphosis, thoracic region Scoliosis of lumbar spine, unspecified scoliosis type 05/17/2025 7:30 AM EDT [facility] Start: 05-17-2025 End: 05-17-2025 Posterior segmental instrumentation 7-12 vrt seg POSTERIOR SEGMENTAL INSTRUMENTATION 7 TO 12 VERTEBRAL SEGMENTS Other secondary kyphosis, thoracic region Scoliosis of lumbar spine, unspecified scoliosis type 05/17/2025 7:30 AM EDT [facility] Start: 05-17-2025 Subsequent hospital visit by physician 05/17/2025 7:30 AM EDT Hospital Encounter Admitting [address] [place] [address] Aris Baeza MD [address] [address] Other secondary kyphosis, thoracic region [M40.14], Scoliosis of lumbar spine, unspecified scoliosis type [M41.9] Admitting Comment on above: Other secondary kyphosis, thoracic regio n [M40.14], Scoliosis of lumbar spine, unspecified scoliosis type [M41.9] Start: 05-15-2025 End: 05-15-2025 ambulatory 05/15/2025 1:00 PM EDT [facility] Neurology Pain [address] [place] [address] Jacqueline Good PSYD [address] [place], [place] [phone] TREK 4SS Neurology Pain Comment on above: TREK 4SS Start: 05-14-2025 End: 05-14-2025 Patient encounter procedure 05/14/2025 2:00 PM EDT Office Visit Urology [address] [place] [address] Meg Haas, PRODUCTION ENGINEER TRACK.TIME SIGNAL WIRER [address] [place] [address] 1 year follow up with Meg Urology Comment on above: 1 year follow up with Meg Start: 05-10-2025 End: 05-10-2025 Nursing evaluation of patient and report 05/10/2025 11:00 AM EDT Nurse Visit [facility] [address] [place] [address] Lily Elias, LISSETTE PRE OP NURSE PHONE EDUCATION [facility] Comment on above: PRE OP NURSE PHONE EDUCATION Start: 05-02-2025 End: 08-01-2025 Basic metabolic 2000 panel - Serum or Plasma BASIC METABOLIC PANEL Lab Routine Other secondary kyphosis, thoracic region Scoliosis of lumbar spine, unspecified scoliosis type Pre-op testing Expected: 05/02/2025 (Approximate), Expires: 08/01/2025 [facility] Work Phone: Comment on above: Expected: 05/02/2025 (Approximate), Expi res: 08/01/2025 Start: 05-02-2025 End: 08-01-2025 CONFIRM BLOOD TYPE CONFIRM BLOOD TYPE Blood Bank Routine Other secondary kyphosis, thoracic region Scoliosis of lumbar spine, unspecified scoliosis type Pre-op testing Expected: 05/02/2025 (Approximate), Expires: 08/01/2025 [facility] Comment on above: Expected: 05/02/2025 (Approximate), Expi res: 08/01/2025 Start: 05-02-2025 End: 08-01-2025 NICOTINE/COTININE NICOTINE/COTININE Lab Routine Other secondary kyphosis, thoracic region Scoliosis of lumbar spine, unspecified scoliosis type Pre-op testing Expected: 05/02/2025 (Approximate), Expires: 08/01/2025 [facility] Comment on above: Expected: 05/02/2025 (Approximate), Expi res: 08/01/2025 Start: 05-02-2025 End: 08-01-2025 STAPHYLOCOCCUS AUREUS & MRSA SCREEN, PCR, NASAL STAPHYLOCOCCUS AUREUS & MRSA SCREEN, PCR, NASAL Lab Routine Other secondary kyphosis, thoracic region Scoliosis of lumbar spine, unspecified scoliosis type Pre-op testing Expected: 05/02/2025 (Approximate), Expires: 08/01/2025 [facility] Comment on above: Expected: 05/02/2025 (Approximate), Expi res: 08/01/2025 Start: 05-02-2025 End: 08-01-2025 TYPE AND SCREEN,30 DAY TYPE AND SCREEN,30 DAY Blood Bank Routine Other secondary kyphosis, thoracic region Scoliosis of lumbar spine, unspecified scoliosis type Pre-op testing Expected: 05/02/2025 (Approximate), Expires: 08/01/2025 [facility] Comment on above: Expected: 05/02/2025 (Approximate), Expi res: 08/01/2025 Start: 05-01-2025 End: 05-01-2025 Anesthesia consultation 05/01/2025 3:20 PM EDT PAT Pre Anesthesia [address] [place] [address] 1, Pacc [place] [address] [place] [address] Pre Op Pre Anesthesia Comment on above: Pre Op Start: 05-01-2025 End: 05-01-2025 ambulatory 05/01/2025 3:00 PM EDT [facility] [address] [place] [address] Labs [facility] Comment on above: Labs Start: 05-01-2025 End: 05-01-2025 Patient encounter procedure 05/01/2025 1:30 PM EDT Office Visit Geriatrics [address] [place] [address] Katie Lowe MD [address] [place] [address] Pre-Op [facility] Comment on above: Pre-Op [facility] Start: 04-28-2025 End: 03-28-2026 CBC W Auto Differential panel - Blood COMPLETE BLOOD COUNT AND DIFFERENTIAL Lab Routine Iron deficiency anemia, unspecified iron deficiency anemia type Expected: 04/28/2025 (Approximate), Expires: 03/28/2026 [facility] Comment on above: Expected: 04/28/2025 (Approximate), Expi res: 03/28/2026 Start: 04-28-2025 End: 03-28-2026 Ferritin [Mass/volume] in Serum or Plasma FERRITIN Lab Routine Iron deficiency anemia, unspecified iron deficiency anemia type Expected: 04/28/2025 (Approximate), Expires: 03/28/2026 [facility] Comment on above: Expected: 04/28/2025 (Approximate), Expi res: 03/28/2026 Start: 04-28-2025 End: 03-28-2026 Iron and Iron binding capacity panel - Serum or Plasma IRON AND TIBC Lab Routine Iron deficiency anemia, unspecified iron deficiency anemia type Expected: 04/28/2025 (Approximate), Expires: 03/28/2026 [facility] Comment on above: Expected: 04/28/2025 (Approximate), Expi res: 03/28/2026 Start: 04-17-2025 Patient discharge [facility] Start: 04-15-2025 [facility] Start: 04-13-2025 Following clinical pathway protocol [facility] Start: 04-13-2025 Inhalation therapy procedure [facility] Start: 04-12-2025 Assessment of risk of venous thromboembolism [facility] Start: 04-12-2025 Insertion of catheter into peripheral vein [facility] Start: 04-12-2025 Providing care according to standard [facility] Start: 04-12-2025 Provision of activity privileges [facility] Start: 04-12-2025 Referral to occupational therapist [facility] Start: 04-12-2025 Referral to service [facility] Start: 04-12-2025 [facility] Start: 04-12-2025 Following clinical pathway protocol [facility] Start: 04-12-2025 Verification routine [facility] Start: 04-12-2025 Admission procedure [facility] Start: 04-12-2025 Hospital admission, emergency, from emergency room, medical nature [facility] Start: 04-12-2025 End: 04-13-2025 [facility] Start: 04-12-2025 Bacteria identified in Urine by Culture Urine Culture [facility] Start: 04-12-2025 Patient referral to dietitian [facility] Start: 04-05-2025 End: 04-05-2025 Patient encounter procedure 04/05/2025 12:30 PM EDT Office Visit Neurology [address] [address] Sara Hooper, NEREYDA.TIME SIGNAL WIRER [address] [address] dementia and nightmares see phone notes Neurology Comment on above: dementia and nightmares see phone notes Start: 03-19-2025 End: 03-19-2025 Patient encounter procedure [facility] Radiology General Comment on above: XRAY 1 YEAR FOLLOW UP Start: 03-15-2025 DIABETES SCREEN DIABETES SCREEN [facility] Start: 03-13-2025 End: 04-12-2025 XR Thoracic and lumbar spine Views for scoliosis W standing XR SCOLIOSIS PA STAND/LAT 2V Radiology Routine Other secondary kyphosis, thoracic region Expected: 03/13/2025 (Approximate), Expires: 04/12/2025 [facility] Work Phone: Comment on above: Expected: 03/13/2025 (Approximate), Expi res: 04/12/2025 Start: 03-08-2025 End: 03-08-2025 Patient encounter procedure 03/08/2025 11:30 AM EDT Office Visit Neurology [address] [address] Sara Hooper, PRODUCTION ENGINEER TRACK.TIME SIGNAL WIRER [address] [id number] dementia and nightmares see phone notes Neurology Comment on above: dementia and nightmares see phone notes Start: 02-22-2025 End: 02-22-2025 Patient encounter procedure 02/22/2025 3:00 PM EDT Office Visit Allergy [address] [address] Gertrudis Carrillo, [address] [place] [address] Allergy to multiple antibiotics [Z88.1] Allergy Comment on above: Allergy to multiple antibiotics [Z88.1] Start: 02-19-2025 End: 02-19-2025 Manual pelvic examination 02/19/2025 3:15 PM EDT OT/PT/Speech Visit [facility] [address] [place] [address] Qasim Ansari, PT [address] [place] [address] M62.89 (ICD-10-CM) - Pelvic floor dysfunction [facility] Comment on above: M62.89 (ICD-10-CM) - Pelvic floor dysfun ction Start: 02-15-2025 End: 02-15-2025 Patient encounter procedure 02/15/2025 2:30 PM EDT Office Visit Urology [address] [place] [address] Yun Coles MD [address] [place] [address] ED follow up UTI Urology Comment on above: ED follow up UTI Start: 02-13-2025 End: 02-13-2025 Patient encounter procedure 02/13/2025 1:40 PM EDT Appointment Cat Scan [address] [address] Calculus of kidney [N20.0] Cat Scan Comment on above: Calculus of kidney [N20.0] Start: 02-05-2025 End: 02-05-2025 Patient encounter procedure 02/05/2025 1:50 PM EDT Office Visit Cardiology [address] [place] [address] Dx: Elevated troponin I level [R79.89] Cardiology Comment on above: Dx: Elevated troponin I level [R79.89] Start: 01-29-2025 [facility] Start: 01-29-2025 [facility] Start: 01-29-2025 Bacteria identified in Urine by Culture Urine Culture [facility] Start: 01-28-2025 End: 01-28-2025 Patient encounter procedure 01/28/2025 3:30 PM EDT Office Visit Cardiology [address] [place] [address] Dx: Elevated troponin I level [R79.89] Cardiology Comment on above: Dx: Elevated troponin I level [R79.89] Start: 01-28-2025 End: 01-28-2025 Manual pelvic examination 01/28/2025 12:30 PM EDT OT/PT/Speech Visit [facility] [address] [place] [address] Qasim Ansari PT [address] [place] [address] M62.89 (ICD-10-CM) - Pelvic floor dysfunction [facility] Comment on above: M62.89 (ICD-10-CM) - Pelvic floor dysfun ction Start: 01-21-2025 End: 04-22-2025 Bacteria identified in Urine by Culture BACTERIAL CULTURE, URINE Microbiology Routine Sepsis due to Escherichia coli without acute organ dysfunction (HCC) Expected: 01/21/2025, Expires: 04/22/2025 [facility] Comment on above: Expected: 01/21/2025, Expires: Start: 01-21-2025 End: 04-22-2025 Urinalysis complete panel - Urine URINALYSIS, WITH MICROSCOPIC Lab Routine Sepsis due to Escherichia coli without acute organ dysfunction (HCC) Expected: 01/21/2025, Expires: 04/22/2025 [facility] Comment on above: Expected: 01/21/2025, Expires: Start: 01-21-2025 End: 01-21-2025 Patient encounter procedure 01/21/2025 1:00 PM EDT Office Visit Family Medicine [place] [address] [place] [address] Francisco Bahena MD [address] [place] [address] [facility] d/c 01/10/25 for UTI and elevated troponin's. See [facility] 01/11/25. [facility] Medicine [place] Comment on above: [facility] d/c 01/10/25 for UTI and elevated troponin's. See [facility] 01/11/25. Start: 01-14-2025 End: 01-14-2025 Patient encounter procedure Neurology Comment on above: 3 mth f/u dementia, christa 09/21/24 [facility] 3 mth f/u dementia, christa 09/21/24 [facility]- [facility] started Start: 01-11-2025 Referral to service [facility] Start: 01-10-2025 Patient discharge [facility] Start: 01-08-2025 Following clinical pathway protocol [facility] Start: 01-08-2025 Aspiration precautions [facility] Start: 01-08-2025 Assessment of risk of venous thromboembolism [facility] Start: 01-08-2025 Fall prevention [facility] Start: 01-08-2025 Inhalation therapy procedure [facility] Start: 01-08-2025 Insertion of catheter into peripheral vein [facility] Start: 01-08-2025 Introduction of urinary catheter [facility] Start: 01-08-2025 Measuring intake and output [facility] Start: 01-08-2025 Oxygen therapy [facility] Start: 01-08-2025 Providing care according to standard [facility] Start: 01-08-2025 Provision of activity privileges [facility] Start: 01-08-2025 Referral to occupational therapist [facility] Start: 01-08-2025 Referral to service [facility] Start: 01-08-2025 [facility] Start: 01-08-2025 Verification routine [facility] Start: 01-08-2025 Admission procedure [facility] Start: 01-08-2025 Hospital admission, emergency, from emergency room, medical nature [facility] Start: 01-08-2025 Bacteria identified in Urine by Culture Urine Culture [facility] Start: 01-08-2025 Urine culture [facility] Start: 01-08-2025 [facility] Start: 01-08-2025 [facility] Start: 01-07-2025 End: 01-07-2025 Patient encounter procedure 01/07/2025 2:30 PM EDT Appointment Radiology [address] [place] [address] Thyroid nodule [E04.1] Radiology Comment on above: Thyroid nodule [E04.1] Start: 01-04-2025 Covid-19 Vaccine ( season) Covid-19 Vaccine ( season) [facility] Start: 01-02-2025 End: 01-02-2025 Patient encounter procedure 01/02/2025 1:30 PM EDT Office Visit Urology [address] [place], [place] [phone] Angela Harry PA-C [address] [place] [address] annual follow up Urology Comment on above: annual follow up Start: 12-31-2024 End: 12-31-2024 Patient encounter procedure Family Medicine [place] Comment on above: medicare wellness Start: 12-27-2024 End: 12-27-2024 Patient encounter procedure Radiology Comment on above: Screening for genitourinary condition [Z 13.89]; Nephrolithiasis [N20.0]; Complicated UTI (urinary tract infection) [N39.0] Start: 12-22-2024 RSV Vaccine (1 - 1-dose 60+ series) RSV Vaccine (1 - 1-dose 60+ series) [facility] Comment on above: Postponed from 2002 (Declined at t his time) Start: 12-21-2024 End: 03-22-2025 CBC W Auto Differential panel - Blood COMPLETE BLOOD COUNT AND DIFFERENTIAL Lab Routine Medication management Iron deficiency anemia, unspecified iron deficiency anemia type Expected: 12/21/2024, Expires: 03/22/2025 [facility] Comment on above: Expected: 12/21/2024, Expires: Start: 12-21-2024 End: 03-22-2025 Cobalamin (Vitamin B12) [Mass/volume] in Serum or Plasma VITAMIN B12 Lab Routine Gastroesophageal reflux disease, unspecified whether esophagitis present Medication management Expected: 12/21/2024, Expires: 03/22/2025 [facility] Comment on above: Expected: 12/21/2024, Expires: Start: 12-21-2024 End: 03-22-2025 Comprehensive metabolic 2000 panel - Serum or Plasma COMPREHENSIVE METABOLIC PANEL Lab Routine Elevated blood sugar Essential hypertension, benign Expected: 12/21/2024, Expires: 03/22/2025 [facility] Comment on above: Expected: 12/21/2024, Expires: Start: 12-21-2024 End: 03-22-2025 Hemoglobin A1c in Blood HEMOGLOBIN A1C Lab Routine Elevated blood sugar Expected: 12/21/2024, Expires: 03/22/2025 [facility] Comment on above: Expected: 12/21/2024, Expires: Start: 12-21-2024 End: 03-22-2025 Iron and Iron binding capacity panel - Serum or Plasma IRON AND TIBC Lab Routine Iron deficiency anemia, unspecified iron deficiency anemia type Expected: 12/21/2024, Expires: 03/22/2025 [facility] Comment on above: Expected: 12/21/2024, Expires: Start: 12-21-2024 End: 03-22-2025 LIPID PANEL, NONFASTING LIPID PANEL, NONFASTING Lab Routine Essential hypertension, benign Expected: 12/21/2024, Expires: 03/22/2025 [facility] Comment on above: Expected: 12/21/2024, Expires: Start: 12-21-2024 End: 03-22-2025 Magnesium [Mass/volume] in Serum or Plasma MAGNESIUM Lab Routine Gastroesophageal reflux disease, unspecified whether esophagitis present Medication management Expected: 12/21/2024, Expires: 03/22/2025 [facility] Comment on above: Expected: 12/21/2024, Expires: Start: 12-21-2024 End: 03-22-2025 Thyrotropin [Units/volume] in Serum or Plasma THYROID STIMULATING HORMONE Lab Routine Thyroid nodule Medication management Expected: 12/21/2024, Expires: 03/22/2025 [facility] Comment on above: Expected: 12/21/2024, Expires: Start: 12-21-2024 End: 03-22-2025 Urinalysis complete panel - Urine URINALYSIS, WITH MICROSCOPIC Lab Routine Essential hypertension, benign Expected: 12/21/2024, Expires: 03/22/2025 [facility] Comment on above: Expected: 12/21/2024, Expires: Start: 12-19-2024 End: 12-19-2024 Patient encounter procedure 12/19/2024 3:30 PM EDT Office Visit Colorectal Surgery [address] [place], [place] [id number] Daniela Noel, PRODUCTION ENGINEER TRACK.TIME SIGNAL WIRER [address] [place] [address] Pelvic floor dysfunction Colorectal Surgery Comment on above: Pelvic floor dysfunction Start: 12-19-2024 End: 12-19-2024 Admission to same day surgery center 12/19/2024 3:00 PM EDT Procedure Colorectal Surgery [address] [place], [place] [id number] Daniela Noel APRN.TIME SIGNAL WIRER [address] [place], [place] [id number] Pelvic floor dysfunction Colorectal Surgery Comment on above: Pelvic floor dysfunction Start: 12-14-2024 End: 03-15-2025 Bacteria identified in Urine by Culture BACTERIAL CULTURE, URINE Microbiology Routine Abnormal urinalysis Expected: 12/14/2024, Expires: 03/15/2025 [facility] Work Phone: Comment on above: Expected: 12/14/2024, Expires: Start: 12-14-2024 End: 12-14-2024 ambulatory 12/14/2024 1:00 PM EDT Visit (SP) Office Hematology/Oncology [address] [place], [place] [phone] Riaz Williamson [address] [place] [address] 2MO OV/WALK IN LABS PER PATIENT* Hematology/Oncology Comment on above: 2MO OV/WALK IN LABS PER PATIENT* Start: 12-12-2024 End: 03-13-2025 CBC W Auto Differential panel - Blood COMPLETE BLOOD COUNT AND DIFFERENTIAL Lab STAT Iron deficiency anemia, unspecified iron deficiency anemia type Expected: 12/12/2024 (Approximate), Expires: 03/13/2025 [facility] Work Phone: Comment on above: Expected: 12/12/2024 (Approximate), Expi res: 03/13/2025 Start: 12-12-2024 End: 03-13-2025 Ferritin [Mass/volume] in Serum or Plasma FERRITIN Lab Routine Iron deficiency anemia, unspecified iron deficiency anemia type Expected: 12/12/2024 (Approximate), Expires: 03/13/2025 [facility] Comment on above: Expected: 12/12/2024 (Approximate), Expi res: 03/13/2025 Start: 12-12-2024 End: 03-13-2025 Iron and Iron binding capacity panel - Serum or Plasma IRON AND TIBC Lab Routine Iron deficiency anemia, unspecified iron deficiency anemia type Expected: 12/12/2024 (Approximate), Expires: 03/13/2025 [facility] Comment on above: Expected: 12/12/2024 (Approximate), Expi res: 03/13/2025 Start: 12-04-2024 End: 12-04-2024 Patient encounter procedure 12/04/2024 3:40 PM EDT Appointment Cat Scan [address] [address] Pathological fracture, other site, initial encounter for fracture [M84.48XA]; Abnormal radionuclide bone scan [R94.8] Cat Scan Comment on above: Pathological fracture, other site, initi al encounter for fracture [M84.48XA]; Abnormal radionuclide bone scan [R94.8] Start: 11-23-2024 End: 11-23-2024 Patient encounter procedure Nuclear Medicine Comment on above: Rib pain on left side [R07.81] Start: 11-14-2024 End: 11-14-2024 Patient encounter procedure 11/14/2024 1:20 PM EST Office Visit Family Medicine [place] [address] [facility] [place] [address] Cherelle Benavides PA-C [address] [place] [address] 4 week med f/u Family [facility] [place] Comment on above: 4 week med f/u Start: 2024 End: 2024 Patient encounter procedure 2024 5:40 PM EST Office Visit Family Medicine [place] [address] [place] [address] rFancisco Bahena MD [address] [place] [address] Follow up ribs Family Medicine [place] Comment on above: Follow up ribs Start: 11-02-2024 End: 11-02-2024 ambulatory 11/02/2024 3:00 PM EST [facility] Hematology/Oncology [address] [place] [address] 2ND FLOOR Hematology/Oncology Comment on above: 2ND FLOOR Start: 10-31-2024 End: 10-31-2024 ambulatory 10/31/2024 3:00 PM EST Infusion Center Hematology/Oncology [address] [place] [address] 2ND FLOOR Hematology/Oncology Comment on above: 2ND FLOOR Start: 10-29-2024 End: 10-29-2024 ambulatory 10/29/2024 3:00 PM EST Infusion Center Hematology/Oncology [address] [place] [address] 2ND FLOOR Hematology/Oncology Comment on above: 2ND FLOOR Start: 10-26-2024 End: 10-26-2024 Patient encounter procedure 10/26/2024 9:40 AM EST Office Visit [facility] [place] [address] [place] [address] Francisco Bahena MD [address] [place] [address] Follow up ribs [facility] [place] Comment on above: Follow up ribs Start: 10-25-2024 End: 10-25-2024 ambulatory Hematology/Oncology Comment on above: 2ND FLOOR 2ND FLOO Start: 10-23-2024 End: 10-23-2024 ambulatory 10/23/2024 3:00 PM [facility] Infusion Center Hematology/Oncology [address] [place] [address] 2ND FLOOR Hematology/Oncology Comment on above: 2ND FLOOR Start: 10-20-2024 Annual PCP Team Chronic Disease Visit Annual PCP Team Chronic Disease Visit [facility] Start: 10-20-2024 BP Controlled (<130/80) BP Controlled (<130/80) [facility] in Start: 10-19-2024 End: 01-18-2025 CBC W Auto Differential panel - Blood COMPLETE BLOOD COUNT AND DIFFERENTIAL Lab STAT Iron deficiency anemia, unspecified iron deficiency anemia type Expected: 10/19/2024 (Approximate), Expires: 01/18/2025 [facility] Work Phone: Comment on above: Expected: 10/19/2024 (Approximate), Expi res: 01/18/2025 Start: 10-19-2024 End: 01-18-2025 Ferritin [Mass/volume] in Serum or Plasma FERRITIN Lab Routine Iron deficiency anemia, unspecified iron deficiency anemia type Expected: 10/19/2024 (Approximate), Expires: 01/18/2025 [facility] Comment on above: Expected: 10/19/2024 (Approximate), Expi res: 01/18/2025 Start: 10-18-2024 End: 10-18-2024 Patient encounter procedure 10/18/2024 1:00 PM EST Office Visit Family Medicine [place] [address] [place], [place] [phone] Cherelle Benavides PA-C [address] [place], [place] [phone] Depression Family [facility] Comment on above: Depression Start: 10-16-2024 End: 10-16-2024 ambulatory 10/16/2024 9:30 AM EST Visit (SP) Office Hematology/Oncology [address] [place], [place] [phone] Riaz Williamson [address] [place], [place] [phone] [facility] Hematology/Oncology Comment on above: [facility] Start: 10-10-2024 End: 01-09-2025 Iron and Iron binding capacity panel - Serum or Plasma [facility] Work Phone: Comment on above: Expected: 10/10/2024, Expires: Start: 10-10-2024 End: 01-09-2025 Thyrotropin [Units/volume] in Serum or Plasma [facility] Comment on above: Expected: 10/10/2024, Expires: Start: 10-10-2024 End: 01-09-2025 Thyroxine (T4) free [Mass/volume] in Serum or Plasma [facility] Comment on above: Expected: 10/10/2024, Expires: Start: 09-26-2024 Advance Directive Discussion Advance Directive Discussion [facility] Start: 09-21-2024 End: 09-21-2024 Patient encounter procedure Neurology Comment on above: Follow up Follow up, 06/26 CHRISTA MQ- take aricept in morning, cont. physical & cognitive exercises, t/u w/ Yu- nightmares?? Start: 09-07-2024 End: 12-07-2024 CBC W Auto Differential panel - Blood COMPLETE BLOOD COUNT AND DIFFERENTIAL Lab Routine Iron deficiency anemia, unspecified iron deficiency anemia type Expected: 09/07/2024, Expires: 12/07/2024 [facility] Comment on above: Expected: 09/07/2024, Expires: Start: 09-07-2024 End: 12-07-2024 Iron and Iron binding capacity panel - Serum or Plasma IRON AND TIBC Lab Routine Iron deficiency anemia, unspecified iron deficiency anemia type Expected: 09/07/2024, Expires: 12/07/2024 [facility] Work Phone: Comment on above: Expected: 09/07/2024, Expires: Start: 09-04-2024 DIABETES SCREEN DIABETES SCREEN [facility] Start: 09-03-2024 End: 09-03-2024 ambulatory 09/03/2024 4:15 PM EST OT/PT/Speech Visit [facility] [address] [place] [address] Laurel Chavez PT back pain [facility] Comment on above: back pain Start: 08-30-2024 End: 11-29-2024 RAMÍREZ/THEO RODRÍGUEZ SER [facility] Comment on above: Expected: 08/30/2024, Expires: Start: 08-30-2024 End: 11-29-2024 PROTEIN ELECT RND UR W/INTERP [facility] Work Phone: Comment on above: Expected: 08/30/2024, Expires: Start: 08-30-2024 End: 11-29-2024 PROTEIN ELECTROPHORESIS SERUM W/INTERP [facility] Comment on above: Expected: 08/30/2024, Expires: Start: 08-27-2024 End: 08-27-2024 ambulatory 08/27/2024 4:15 PM EST OT/PT/Speech Visit [facility] [address] [place] [address] O'Laurel Ansari, PT Degenerative lumbar spinal stenosis [M48.061] [facility] Comment on above: Degenerative lumbar spinal stenosis [M48 .061] Start: 08-25-2024 Annual PCP Team Chronic Disease Visit Annual PCP Team Chronic Disease Visit [facility] Start: 08-25-2024 BP Controlled (<130/80) BP Controlled (<130/80) [facility] inic Start: 08-20-2024 End: 08-20-2024 Evaluation and management of inpatient 08/20/2024 4:15 PM EST OT/PT/Speech Visit [facility] [address] [place] [address] O'Laurel Ansari, PT back pain-patient wanted 2 more visits due to what the progress nitaguila stated [facility] Comment on above: back pain-patient wanted 2 more visits d ue to what the progress nites stated Start: 08-13-2024 End: 08-13-2024 ambulatory 08/13/2024 4:15 PM EST OT/PT/Speech Visit [facility] [address] [place] [address] O'Laurel Ansari, PT Degenerative lumbar spinal stenosis [M48.061] Weakness of both lower extremities [R29.898] [facility] Comment on above: Degenerative lumbar spinal stenosis [M48 .061] Weakness of both lower extremities [R29.898] Start: 08-06-2024 End: 11-05-2024 CBC W Auto Differential panel - Blood COMPLETE BLOOD COUNT AND DIFFERENTIAL Lab Routine Iron deficiency anemia, unspecified iron deficiency anemia type Expected: 08/06/2024, Expires: 11/05/2024 [facility] Comment on above: Expected: 08/06/2024, Expires: Start: 08-06-2024 End: 11-05-2024 Iron and Iron binding capacity panel - Serum or Plasma IRON AND TIBC Lab Routine Iron deficiency anemia, unspecified iron deficiency anemia type Expected: 08/06/2024, Expires: 11/05/2024 [facility] Work Phone: Comment on above: Expected: 08/06/2024, Expires: Start: 07-23-2024 End: 07-23-2024 ambulatory 07/23/2024 2:45 PM EDT OT/PT/Speech Visit [facility] [address] [place] [address] OLaurel Duke, PT Degenerative lumbar spinal stenosis [M48.061] Weakness of both lower extremities [R29.898] [facility] Comment on above: Degenerative lumbar spinal stenosis [M48 .061] Weakness of both lower extremities [R29.898] Start: 07-16-2024 End: 07-16-2024 ambulatory 07/16/2024 3:30 PM EDT OT/PT/Speech Visit [facility] [address] [place] [address] KasJulianna kyleh, STRANNER [address] [place] [address] Degenerative lumbar spinal stenosis [M48.061] Weakness of both lower extremities [R29.898] [facility] Comment on above: Degenerative lumbar spinal stenosis [M48 .061] Weakness of both lower extremities [R29.898] Start: 07-13-2024 End: 07-13-2024 Patient encounter procedure 07/13/2024 10:00 AM EDT Office Visit Urology [address] [phone] Yolanda Victoria, PRODUCTION ENGINEER TRACK.TIME SIGNAL WIRER [address] [place] [address] 1 year follow up with Dr. Coles Urology Comment on above: [address] up with [address] Coles Start: 07-06-2024 End: 07-06-2024 Patient encounter procedure 07/06/2024 11:45 AM EDT Office Visit Urology [address] [place] [address] Yun Coles MD [address] [place] [address] 1 year follow up with [address] Coles Urology Comment on above: [address] up [address] Coles Start: 07-04-2024 End: 07-04-2024 ambulatory 07/04/2024 3:45 PM EDT OT/PT/Speech Visit [facility] [address] [place], [place] [phone] Laurel Chavez, PT Degenerative lumbar spinal stenosis [M48.061]; Weakness of both lower extremities [R29.898] [facility] Comment on above: Degenerative lumbar spinal stenosis [M48 .061]; Weakness of both lower extremities [R29.898] Start: 07-02-2024 End: 10-01-2024 Ferritin [Mass/volume] in Serum or Plasma FERRITIN Lab Routine Anemia, chronic disease Expected: 07/02/2024, Expires: 10/01/2024 [facility] Comment on above: Expected: 07/02/2024, Expires: Start: 07-02-2024 End: 10-01-2024 Iron and Iron binding capacity panel - Serum or Plasma IRON AND TIBC Lab Routine Anemia, chronic disease Expected: 07/02/2024, Expires: 10/01/2024 [facility] Work Phone: Comment on above: Expected: 07/02/2024, Expires: 5 Start: 06-29-2024 End: 06-29-2024 Patient encounter procedure Cat Scan Comment on above: Left upper quadrant abdominal pain [R10. 12] Start: 06-26-2024 End: 06-26-2024 Patient encounter procedure 06/26/2024 1:45 PM EDT Office Visit Neurology [address] [place] [address] Belem Nuñez PA-C [address] [place], [place] [phone] Nightmares [F51.5} Dementia without behavioral disturbance (HCC) [F03.90] Neurology Comment on above: Nightmares [F51.5} Dementia without beha vioral disturbance (HCC) [F03.90] Start: 06-25-2024 End: 06-25-2024 Patient encounter procedure 06/25/2024 1:00 PM EDT Office Visit [facility] [address] [place], [place] [address] Trinidad Roque APRN.TIME SIGNAL WIRER [address] [place] [address] 6 month follow up [facility] Comment on above: 6 month follow up Start: 06-15-2024 End: 09-14-2024 MANOLO BY IFA SCREEN [facility] Comment on above: Expected: 06/15/2024, Expires: Start: 06-15-2024 End: 09-14-2024 C reactive protein [Mass/volume] in Serum or Plasma [facility] Comment on above: Expected: 06/15/2024, Expires: Start: 06-15-2024 End: 09-14-2024 Creatine kinase [Enzymatic activity/volume] in Serum or Plasma [facility] Comment on above: Expected: 06/15/2024, Expires: Start: 06-15-2024 End: 09-14-2024 Erythrocyte sedimentation rate [facility] Comment on above: Expected: 06/15/2024, Expires: Start: 06-15-2024 End: 09-14-2024 Rheumatoid factor [Units/volume] in Serum or Plasma [facility] Comment on above: Expected: 06/15/2024, Expires: Start: 06-15-2024 End: 06-15-2024 Patient encounter procedure 06/15/2024 11:40 AM EDT Office Visit [facility] [address] [place], [place] [phone] Francisco Bahena MD [address] [place] [address] leg pain/weakness [facility] [place] Comment on above: leg pain/weakness Start: 06-08-2024 End: 06-08-2024 ambulatory 06/08/2024 1:00 PM EDT Results Only [place] [facility] [address] [place] [address] [place] [facility] Start: 05-27-2024 Covid-19 Vaccine ( season) Covid-19 Vaccine () [facility] Start: 05-27-2024 Covid-19 Vaccine () Covid-19 Vaccine () [facility] Start: 05-27-2024 Influenza vaccination Influ[facility] Start: 05-18-2024 End: 05-18-2024 Patient encounter procedure 05/18/2024 10:15 AM EDT Office Visit Urology [address] [place] [address] Yun Coles MD [address] [place] [address] follow up Urology Comment on above: follow up Start: 05-04-2024 End: 05-04-2024 Patient encounter procedure 05/04/2024 11:45 AM EDT Office Visit Urology [address] [place] [address] Yun Coles MD [address] [place] [address] follow up Urology Comment on above: follow up Start: 04-05-2024 ANNUAL PCP TEAM CHRONIC DISEASE VISIT ANNUAL PCP TEAM CHRONIC DISEASE VISIT [facility] Start: 04-05-2024 BP CONTROLLED (<130/80) BP CONTROLLED (<130/80) [facility] in Start: 03-21-2024 Covid-19 Vaccine (8 - 2023-24 season) Covid-19 Vaccine ( season) [facility] Start: 03-18-2024 BP CONTROLLED (<130/80) BP CONTROLLED (<130/80) [facility] Start: 03-13-2024 End: 03-13-2024 Patient encounter procedure 03/13/2024 1:00 PM EDT Office Visit [facility] [address] [place] [address] Aris Baeza MD [address] [place] [address] 1 year follow up [facility] Comment on above: 1 year follow up Start: 02-18-2024 BP CONTROLLED (<130/80) BP CONTROLLED (<130/80) [facility] Start: 01-20-2024 End: 01-20-2024 Patient encounter procedure Radiology Comment on above: US THYROID/PARATHYROID US CAROTID [facility] Start: 01-06-2024 End: 04-06-2024 Bacteria identified in Urine by Culture URINE CULTURE Microbiology Routine Recurrent UTI Expected: 01/06/2024, Expires: 04/06/2024 [facility] Work Phone: Comment on above: Expected: 01/06/2024, Expires: Start: 01-06-2024 BP CONTROLLED (<130/80) BP CONTROLLED (<130/80) [facility] Start: 10-12-2023 ANNUAL PCP TEAM CHRONIC DISEASE VISIT ANNUAL PCP TEAM CHRONIC DISEASE VISIT [facility] Start: 10-12-2023 BP CONTROLLED (<130/80) BP CONTROLLED (<130/80) [facility] Start: 10-04-2023 ANNUAL PCP TEAM CHRONIC DISEASE VISIT [facility] Start: 10-04-2023 BP CONTROLLED (<130/80) BP CONTROLLED (<130/80) [facility] Start: 10-03-2023 Blood chemistry [facility] Start: 10-02-2023 Blood chemistry [facility] Start: 10-01-2023 Blood chemistry [facility] Start: 09-30-2023 Blood chemistry [facility] Start: 09-29-2023 Blood chemistry [facility] Start: 09-28-2023 Patient discharge [facility] Start: 09-26-2023 Advance Directive Discussion Advance Directive Discussion [facility] Start: 09-25-2023 Following clinical pathway protocol [facility] Start: 09-25-2023 Ambulation without limitation [facility] Start: 09-25-2023 Assessment of risk of venous thromboembolism [facility] Start: 09-25-2023 Insertion of catheter into peripheral vein [facility] Start: 09-25-2023 Providing care according to standard [facility] Start: 09-25-2023 Referral to occupational therapist [facility] Start: 09-25-2023 Referral to service [facility] Start: 09-25-2023 [facility] Start: 09-25-2023 Verification routine [facility] Start: 09-25-2023 Admission procedure [facility] Start: 09-25-2023 Hospital admission, emergency, from emergency room, medical nature [facility] Start: 09-24-2023 Blood culture [facility] Start: 09-24-2023 Bacteria identified in Blood by Culture Blood Culture [facility] Start: 09-24-2023 Blood culture [facility] Start: 09-10-2023 [facility] Start: 09-10-2023 Bacteria identified in Urine by Culture Urine Culture [facility] Start: 07-09-2023 BP CONTROLLED (<130/80) BP CONTROLLED (<130/80) [facility] Start: 05-27-2023 Covid-19 Vaccine ( season) Covid-19 Vaccine () [facility] Start: 05-27-2023 Influenza vaccination [facility] Start: 05-21-2023 ANNUAL PCP TEAM CHRONIC DISEASE VISIT ANNUAL PCP TEAM CHRONIC DISEASE VISIT [facility] Start: 05-21-2023 BP CONTROLLED (<130/80) BP CONTROLLED (<130/80) [facility] in Start: 04-05-2023 End: 06-05-2023 Basic metabolic 2000 panel - Serum or Plasma [facility] Work Phone: Comment on above: Expected: 04/05/2023, Expires: Start: 04-05-2023 End: 06-05-2023 Hemoglobin A1c in Blood [facility] Work Phone: Comment on above: Expected: 04/05/2023, Expires: 3 Start: 04-05-2023 End: 06-05-2023 LIPID PANEL, NONFASTING [facility] Work Phone: Comment on above: Expected: 04/05/2023, Expires: 3 Start: 04-05-2023 End: 06-05-2023 Thyrotropin [Units/volume] in Serum or Plasma [facility] Work Phone: Comment on above: Expected: 04/05/2023, Expires: 3 Start: 03-15-2023 ANNUAL PCP TEAM CHRONIC DISEASE VISIT ANNUAL PCP TEAM CHRONIC DISEASE VISIT [facility] Start: 03-15-2023 BP CONTROLLED (<130/80) BP CONTROLLED (<130/80) [facility] Start: 01-02-2023 [facility] Start: 01-01-2023 ANNUAL PCP TEAM CHRONIC DISEASE VISIT ANNUAL PCP TEAM CHRONIC DISEASE VISIT [facility] Start: 01-01-2023 BP CONTROLLED (<130/80) BP CONTROLLED (<130/80) [facility] Start: 12-21-2022 End: 02-20-2023 Bacteria identified in Urine by Culture URINE CULTURE Microbiology Routine BPH with urinary obstruction Expected: 12/21/2022, Expires: 02/20/2023 [facility] Work Phone: Comment on above: Expected: 12/21/2022, Expires: 3 Start: 12-08-2022 End: 02-07-2023 IMMUNOGLOBULINS CATHERINE IMMUNOGLOBULINS CATHERINE Lab Routine Abnormal SPEP Itchy skin Expected: 12/08/2022, Expires: 02/07/2023 [facility] Work Phone: Comment on above: Expected: 12/08/2022, Expires: 3 Start: 12-08-2022 End: 02-07-2023 KAPPA/RODRÍGUEZ,FREE,SER KAPPA/RODRÍGUEZ,FREE,SER Lab Routine Abnormal SPEP Itchy skin Expected: 12/08/2022, Expires: 02/07/2023 [facility] Work Phone: Comment on above: Expected: 12/08/2022, Expires: 3 Start: 12-08-2022 End: 02-07-2023 MONOCLONAL PROTEIN, SERUM (BLOOD) MONOCLONAL PROTEIN, SERUM (BLOOD) Lab Routine Abnormal SPEP Itchy skin Expected: 12/08/2022, Expires: 02/07/2023 [facility] Work Phone: Comment on above: Expected: 12/08/2022, Expires: 3 Start: 11-24-2022 End: 01-24-2023 Erythrocyte sedimentation rate SED RATE WESTERGREN Lab Routine Pruritic disorder Expected: 11/24/2022, Expires: 01/24/2023 [facility] Work Phone: Comment on above: Expected: 11/24/2022, Expires: 3 Start: 11-24-2022 End: 01-24-2023 PROTEIN ELECTROPHORESIS SERUM W/INTERP PROTEIN ELECTROPHORESIS SERUM W/INTERP Lab Routine Pruritic disorder Expected: 11/24/2022, Expires: 01/24/2023 [facility] Work Phone: Comment on above: Expected: 11/24/2022, Expires: 3 Start: 11-24-2022 End: 01-24-2023 Thyrotropin [Units/volume] in Serum or Plasma TSH BLD Lab Routine Pruritic disorder Expected: 11/24/2022, Expires: 01/24/2023 [facility] Work Phone: Comment on above: Expected: 11/24/2022, Expires: 3 Start: 10-04-2022 End: 12-04-2022 CBC W Auto Differential panel - Blood CBC + DIFF Lab Routine Anemia due to other cause, not classified Memory difficulties Expected: 10/04/2022, Expires: 12/04/2022 [facility] Work Phone: Comment on above: Expected: 10/04/2022, Expires: 3 Start: 10-04-2022 End: 12-04-2022 Cobalamin (Vitamin B12) [Mass/volume] in Serum or Plasma VITAMIN B12 BLOOD Lab Routine Gastroesophageal reflux disease, unspecified whether esophagitis present Medication management Memory difficulties Expected: 10/04/2022, Expires: 12/04/2022 [facility] Work Phone: Comment on above: Expected: 10/04/2022, Expires: 3 Start: 10-04-2022 End: 12-04-2022 Comprehensive metabolic 2000 panel - Serum or Plasma COMP METABOLIC PANEL Lab Routine Essential hypertension, benign Elevated blood sugar Memory difficulties Expected: 10/04/2022, Expires: 12/04/2022 [facility] Work Phone: Comment on above: Expected: 10/04/2022, Expires: 3 Start: 10-04-2022 End: 12-04-2022 Hemoglobin A1c in Blood HGB A1C Lab Routine Elevated blood sugar Expected: 10/04/2022, Expires: 12/04/2022 [facility] Work Phone: Comment on above: Expected: 10/04/2022, Expires: 3 Start: 10-04-2022 End: 12-04-2022 LIPID PANEL, NONFASTING LIPID PANEL, NONFASTING Lab Routine Essential hypertension, benign Bilateral carotid artery stenosis Expected: 10/04/2022, Expires: 12/04/2022 [facility] Work Phone: Comment on above: Expected: 10/04/2022, Expires: 3 Start: 10-04-2022 End: 12-04-2022 Magnesium [Mass/volume] in Serum or Plasma MAGNESIUM BLD Lab Routine Gastroesophageal reflux disease, unspecified whether esophagitis present Medication management Expected: 10/04/2022, Expires: 12/04/2022 [facility] Work Phone: Comment on above: Expected: 10/04/2022, Expires: 3 Start: 10-04-2022 End: 12-04-2022 SYPHILIS TOTAL W/REFLEX SYPHILIS TOTAL W/REFLEX Lab Routine Memory difficulties Expected: 10/04/2022, Expires: 12/04/2022 [facility] Work Phone: Comment on above: Expected: 10/04/2022, Expires: 3 Start: 10-04-2022 End: 12-04-2022 Thyrotropin [Units/volume] in Serum or Plasma TSH BLD Lab Routine Thyroid nodule Memory difficulties Expected: 10/04/2022, Expires: 12/04/2022 [facility] Work Phone: Comment on above: Expected: 10/04/2022, Expires: 3 Start: 10-04-2022 End: 12-04-2022 Urinalysis complete panel - Urine URINALYSIS, WITH MICROSCOPIC Lab Routine Essential hypertension, benign Memory difficulties Expected: 10/04/2022, Expires: 12/04/2022 [facility] Work Phone: Comment on above: Expected: 10/04/2022, Expires: 3 Start: 09-26-2022 ADVANCE DIRECTIVE DISCUSSION ADVANCE DIRECTIVE DISCUSSION [facility] Start: 09-10-2022 ANNUAL PCP TEAM CHRONIC DISEASE VISIT ANNUAL PCP TEAM CHRONIC DISEASE VISIT [facility] Start: 09-10-2022 BP CONTROLLED (<130/80) BP CONTROLLED (<130/80) [facility] Start: 08-16-2022 [facility] Work Phone: Start: 07-20-2022 End: 07-20-2023 SARS-CoV-2 (COVID-19) RNA [Presence] in Respiratory specimen by JACOB with probe detection PRE-PROCEDURE & PRE-OPERATIVE COVID Microbiology Routine Preoperative testing Expected: 07/20/2022, Expires: 07/20/2023 [facility] Work Phone: Comment on above: Expected: 07/20/2022, Expires: 3 Start: 07-07-2022 End: 06-23-2023 aPTT in Platelet poor plasma by Coagulation assay ACTIVATED PTT Lab STAT Preoperative testing Expected: 07/07/2022, Expires: 06/23/2023 [facility] Work Phone: Comment on above: Expected: 07/07/2022, Expires: 3 Start: 07-07-2022 End: 06-23-2023 CBC W Auto Differential panel - Blood CBC + DIFF Lab STAT Preoperative testing Expected: 07/07/2022, Expires: 06/23/2023 [facility] Work Phone: Comment on above: Expected: 07/07/2022, Expires: 3 Start: 07-07-2022 End: 06-23-2023 Comprehensive metabolic 2000 panel - Serum or Plasma COMP METABOLIC PANEL Lab STAT Preoperative testing Expected: 07/07/2022, Expires: 06/23/2023 [facility] Work Phone: Comment on above: Expected: 07/07/2022, Expires: 3 Start: 07-07-2022 End: 06-23-2023 CONFIRM BLOOD TYPE CONFIRM BLOOD TYPE Blood Bank Routine Preoperative testing Expected: 07/07/2022, Expires: 06/23/2023 [facility] Work Phone: Comment on above: Expected: 07/07/2022, Expires: 3 Start: 07-07-2022 End: 06-23-2023 ECG COMPLETE ECG COMPLETE ECG Routine Preoperative testing Expected: 07/07/2022, Expires: 06/23/2023 [facility] Work Phone: Comment on above: Expected: 07/07/2022, Expires: 3 Start: 07-07-2022 End: 06-23-2023 PT panel - Platelet poor plasma by Coagulation assay PROTHROMBIN TIME/PT Lab STAT Preoperative testing Expected: 07/07/2022, Expires: 06/23/2023 [facility] Work Phone: Comment on above: Expected: 07/07/2022, Expires: 3 Start: 07-07-2022 End: 09-06-2022 TYPE AND SCREEN,30 DAY TYPE AND SCREEN,30 DAY Blood Bank Routine Preoperative testing Expected: 07/07/2022, Expires: 09/06/2022 [facility] Work Phone: Comment on above: Expected: 07/07/2022, Expires: 2 Start: 07-07-2022 End: 06-23-2023 URINALYSIS, DIPSTICK ONLY URINALYSIS, DIPSTICK ONLY Lab STAT Preoperative testing Expected: 07/07/2022, Expires: 06/23/2023 [facility] Work Phone: Comment on above: Expected: 07/07/2022, Expires: 3 Start: 06-23-2022 End: 06-23-2023 SARS-CoV-2 (COVID-19) RNA [Presence] in Respiratory specimen by JACOB with probe detection PRE-PROCEDURE & PRE-OPERATIVE COVID Microbiology Routine Preoperative testing Expected: 06/23/2022, Expires: 06/23/2023 [facility] Work Phone: Comment on above: Expected: 06/23/2022, Expires: 3 Start: 05-27-2022 Influenza vaccination INFLUENZA (#1) [facility] Start: 02-22-2022 COVID-19 VACCINE (5 - Booster for Pfizer series) COVID-19 VACCINE (5 - Booster for Pfizer series) [facility] Start: 09-26-2021 ADVANCE DIRECTIVE DISCUSSION [facility] Start: 01-23-2020 BP CONTROLLED (<130/80) BP CONTROLLED (<130/80) [facility] Start: 2002 RSV Vaccine (1 - 1-dose 60+ series) RSV Vaccine (1 - 1-dose 60+ series) [facility] Bacteria identified in Urine by Culture Urine Culture [facility] Bacteria identified in Urine by Culture URINE CULTURE Microbiology Routine Recurrent UTI 08/18/2022 2:12 PM EST [facility] Work Phone: Bacteria identified in Urine by Culture URINE CULTURE Microbiology Routine Gross hematuria 01/21/2023 10:35 AM EDT [facility] Work Phone: Bacteria identified in Urine by Culture URINE CULTURE Microbiology Routine Complicated UTI (urinary tract infection) 10/27/2023 9:00 AM EST [facility] Work Phone: Bacteria identified in Urine by Culture URINE CULTURE Microbiology Routine Nephrolithiasis Complicated UTI (urinary tract infection) 12/28/2023 1:41 PM EDT [facility] Work Phone: BLADDER SCAN BLADDER SCAN Pro cedures Routine Recurrent UTI Ordered: 08/18/2022 [facility] Work Phone: Comment on above: Ordered: 08/18/2022 BLADDER SCAN BLADDER SCAN Pro cedures Routine Complicated UTI (urinary tract infection) Ordered: 11/04/2023 [facility] Work Phone: Comment on above: Ordered: 11/04/2023 Clostridioides diffi cile toxin genes [Presence] in Stool by JACOB with probe detection C. DIFFICILE PCR Lab Routine Diarrhea, unspecified type Ordered: 02/23/2024 [facility] Comment on above: Ordered: 02/23/2024 End: 09-23-2024 Ct abdomen & pelvis w/o contrast material [facility] Work Phone: Comment on above: 1 Occurrences starting 08/25/2023 until 09/23/2024 End: 07-25-2025 CT Abdomen and Pelvis W contrast IV CT ABD/PEL W IVCON Radiology Routine Left upper quadrant abdominal pain 1 Occurrences starting 06/25/2024 until 07/25/2025 [facility] Work Phone: Comment on above: 1 Occurrences starting 06/25/2024 until 07/25/2025 CT Abdomen and Pelvi s W contrast IV CT ABD/PEL W IVCON Radiology Routine Left upper quadrant abdominal pain 07/25/2024 11:54 AM EDT [facility] Work Phone: End: 03-07-2026 CT Abdomen and Pelvis WO contrast CT FLANK WO IVCON Radiology Routine Calculus of kidney 1 Occurrences starting 02/05/2025 until 03/07/2026 [facility] Work Phone: Comment on above: 1 Occurrences starting 02/05/2025 until 03/07/2026 End: 12-29-2025 CT Chest WO contrast CT CHEST WO IVCON Radiology Routine Pathological fracture, other site, initial encounter for fracture Abnormal radionuclide bone scan 1 Occurrences starting 11/29/2024 until 12/29/2025 [facility] Work Phone: Comment on above: 1 Occurrences starting 11/29/2024 until 12/29/2025 End: 12-04-2024 CT Chest WO contrast [facility] Work Phone: Comment on above: 1 Occurrences starting 12/04/2024 until 12/04/2024 Dstr nrolytc agnt parverteb fct addl crvcl/thora DSTR NROLYTC AGNT PARVERTEB FCT ADDL CRVCL/THORA Procedures Routine Cervical spondylosis without myelopathy Ordered: 11/14/2023 [facility] Work Phone: Comment on above: Ordered: 11/14/2023 Dstr nrolytc agnt parverteb fct sngl crvcl/thora DSTR NROLYTC AGNT PARVERTEB FCT SNGL CRVCL/THORA Procedures Routine Cervical spondylosis without myelopathy Ordered: 11/14/2023 [facility] Work Phone: Comment on above: Ordered: 11/14/2023 End: 07-09-2023 ECG COMPLETE ECG COMPLETE ECG Routine Pre-operative examination 1 Occurrences starting 07/09/2022 until 07/09/2023 [facility] Work Phone: Comment on above: 1 Occurrences starting 07/09/2022 until 07/09/2023 ECG COMPLETE ECG COMPLETE ECG 07/09/2022 9:26 AM EDT [facility] End: 06-23-2023 Echocardiography ECHO Cardiology Routine Preop cardiovascular exam 1 Occurrences starting 06/23/2022 until 06/23/2023 [facility] Work Phone: Comment on above: 1 Occurrences starting 06/23/2022 until 06/23/2023 End: 01-21-2026 Echocardiography ECHO Cardiology Routine Elevated troponin I level 1 Occurrences starting 01/21/2025 until 01/21/2026 [facility] Work Phone: Comment on above: 1 Occurrences starting 01/21/2025 until 01/21/2026 ENTERIC BACTERIAL PA FAHAD BY PCR ENTERIC BACTERIAL PANEL BY PCR Lab Routine Diarrhea, unspecified type Ordered: 02/23/2024 [facility] Comment on above: Ordered: 02/23/2024 FAT, FECAL QUAL FAT, FECAL QUAL Lab Routine Diarrhea, unspecified type Ordered: 02/23/2024 [facility] Comment on above: Ordered: 02/23/2024 FECAL LACTOFERRIN/LEUKOCYTES FECAL LACTOFERRIN/LEUKOCYTES Lab Routine Diarrhea, unspecified type Ordered: 02/23/2024 [facility] Work Phone: Comment on above: Ordered: 02/23/2024 FLUROURODYNAMICS WITH EMG FLUROU RODYNAMICS WITH EMG Procedures 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 Ordered: 11/19/2022 [facility] Work Phone: Comment on above: Ordered: 11/19/2022 Giardia lamblia+Cryptosporidium sp Ag [Presence] in Stool by Immunoassay CRYPTOSPORIDIUM AND GIARDIA ANTIGENS BY EIA Microbiology Routine Diarrhea, unspecified type Ordered: 02/23/2024 [facility] Comment on above: Ordered: 02/23/2024 Hemoglobin.gastroint estin al.lower [Presence] in Stool by Immunoassay IMMUNOCHEMICAL FECAL OCCULT BLOOD TEST Lab Routine Dark stools Ordered: 02/23/2024 [facility] Comment on above: Ordered: 02/23/2024 End: 07-23-2023 LUNG DIFFUSION CAPACITY (DLCO) LUNG DIFFUSION CAPACITY (DLCO) PFT Routine Preoperative testing 1 Occurrences starting 06/23/2022 until 07/23/2023 [facility] Work Phone: Comment on above: 1 Occurrences starting 06/23/2022 until 07/23/2023 LUNG DIFFUSION CAPAC ITY (DLCO) LUNG DIFFUSION CAPACITY (DLCO) PFT Routine Preoperative testing 07/02/2022 9:12 AM EDT [facility] Work Phone: Njx dx/ther agt pvrt facet jt crv/thrc 1 level NJX DX/THER AGT PVRT FACET JT CRV/THRC 1 LEVEL Procedures Routine Cervical spondylosis without myelopathy Ordered: 07/13/2023 [facility] Work Phone: Comment on above: Ordered: 07/13/2023 Njx dx/ther agt pvrt facet jt crv/thrc 2nd level NJX DX/THER AGT PVRT FACET JT CRV/THRC 2ND LEVEL Procedures Routine Cervical spondylosis without myelopathy Ordered: 07/13/2023 [facility] Work Phone: Comment on above: Ordered: 07/13/2023 End: 07-23-2023 NM CARDIAC PERF STRESS/PHARM NM CARDIAC PERF STRESS/PHARM Radiology Routine Preop cardiovascular exam Encounter for other preprocedural examination 1 Occurrences starting 06/23/2022 until 07/23/2023 [facility] Work Phone: Comment on above: 1 Occurrences starting 06/23/2022 until 07/23/2023 End: 12-10-2025 NM Whole body Bone Views NM BONE WHOLE BODY Radiology Routine Rib pain on left side 1 Occurrences starting 11/10/2024 until 12/10/2025 [facility] Work Phone: Comment on above: 1 Occurrences starting 11/10/2024 until 12/10/2025 [facility] Work Phone: Patient referral [facility] Work Phone: PT PLAN OF CARE CERTIFICATION PT PLAN OF CARE CERTIFICATION Procedures Routine Unstable gait Chronic neck pain Lumbar back pain Ordered: 04/13/2023 [facility] Comment on above: Ordered: 04/13/2023 End: 07-08-2024 Radex spine cervical 6 or more views XR CERV OTHER 6V AP/LAT/FLX/EXT/OBL Radiology Routine Cervical spondylosis without myelopathy 1 Occurrences starting 06/09/2023 until 07/08/2024 [facility] Work Phone: Comment on above: 1 Occurrences starting 06/09/2023 until 07/08/2024 Radex spine cervical 6 or more views XR CERV OTHER 6V AP/LAT/FLX/EXT/OBL Radiology Routine Cervical spondylosis without myelopathy 06/09/2023 11:41 AM EDT [facility] Work Phone: End: 02-28-2023 Radiologic exam abdomen 3+ views XR ABDOMEN 3V KUB W/OBLIQUES Radiology Routine Nephrolithiasis 1 Occurrences starting 01/29/2022 until 02/28/2023 [facility] Work Phone: Comment on above: 1 Occurrences starting 01/29/2022 until 02/28/2023 End: 09-12-2023 Radiologic exam esophagus single contrast study XR ESOPHAGRAM Radiology Today Dysphagia, unspecified type 1 Occurrences starting 08/13/2022 until 09/12/2023 [facility] Work Phone: Comment on above: 1 Occurrences starting 08/13/2022 until 09/12/2023 Respiratory pathogen s DNA and RNA panel - Respiratory specimen by JACOB with probe detection [facility] End: 07-23-2023 SIX MINUTE WALK SIX MINUTE WALK PFT Routine Preoperative testing 1 Occurrences starting 06/23/2022 until 07/23/2023 [facility] Work Phone: Comment on above: 1 Occurrences starting 06/23/2022 until 07/23/2023 End: 07-23-2023 SPIROMETRY BASELINE ONLY SPIROMETRY BASELINE ONLY PFT Routine Preoperative testing 1 Occurrences starting 06/23/2022 until 07/23/2023 [facility] Work Phone: Comment on above: 1 Occurrences starting 06/23/2022 until 07/23/2023 SPIROMETRY BASELINE ONLY SPIROME TRY BASELINE ONLY PFT Routine Preoperative testing 07/02/2022 9:12 AM EDT [facility] Work Phone: SURGICAL PATHOLOGY [facility] Work Phone: Comment on above: Release Upon Ordering for 1 Occurrences starting 10/27/2023, 1 completed UA DIP, URINE (POC) UA DIP, URIN E (POC) Lab Routine Screening for genitourinary condition Ordered: 01/29/2022 [facility] Work Phone: Comment on above: Ordered: 01/29/2022 Urine culture [facility] Urine culture [facility] End: 01-26-2025 US Kidney - bilateral and Urinary bladder US KIDNEY/BLADDER Radiology Routine Screening for genitourinary condition Nephrolithiasis Complicated UTI (urinary tract infection) 1 Occurrences starting 12/28/2023 until 01/26/2025 [facility] Work Phone: Comment on above: 1 Occurrences starting 12/28/2023 until 01/26/2025 US Kidney - bilatera l and Urinary bladder US KIDNEY/BLADDER Radiology Routine Screening for genitourinary condition Nephrolithiasis Complicated UTI (urinary tract infection) 12/27/2024 2:21 PM EDT [facility] Work Phone: End: 02-01-2026 US Kidney - bilateral and Urinary bladder US KIDNEY/BLADDER Radiology Routine Nephrolithiasis 1 Occurrences starting 01/02/2025 until 02/01/2026 [facility] Work Phone: Comment on above: 1 Occurrences starting 01/02/2025 until 02/01/2026 End: 03-01-2023 US KIDNEY/BLADDER US KIDNEY/BLADDER Radiology Routine Nephrolithiasis 1 Occurrences starting 01/29/2022 until 03/01/2023 [facility] Work Phone: Comment on above: 1 Occurrences starting 01/29/2022 until 03/01/2023 US Thyroid gland US THYROID/PARA THYROID Radiology Routine Thyroid nodule 01/20/2024 2:21 PM EDT [facility] Work Phone: End: 01-30-2026 US Thyroid gland US THYROID/PARATHYROID Radiology Routine Thyroid nodule 1 Occurrences starting 12/31/2024 until 01/30/2026 [facility] Work Phone: Comment on above: 1 Occurrences starting 12/31/2024 until 01/30/2026 US Thyroid gland US THYROID/PARA THYROID Radiology Routine Thyroid nodule 01/07/2025 2:31 PM EDT [facility] Work Phone: End: 01-26-2025 XR Abdomen GE 3 Views AP and Oblique and Cone XR ABDOMEN 3V KUB W/OBLIQUES Radiology Routine Screening for genitourinary condition Nephrolithiasis Complicated UTI (urinary tract infection) 1 Occurrences starting 12/28/2023 until 01/26/2025 [facility] Work Phone: Comment on above: 1 Occurrences starting 12/28/2023 until 01/26/2025 XR Abdomen GE 3 View s AP and Oblique and Cone XR ABDOMEN 3V KUB W/OBLIQUES Radiology Routine Screening for genitourinary condition Nephrolithiasis Complicated UTI (urinary tract infection) 12/27/2024 2:40 PM EDT [facility] Work Phone: End: 02-01-2026 XR Abdomen GE 3 Views AP and Oblique and Cone XR ABDOMEN 3V KUB W/OBLIQUES Radiology Routine Nephrolithiasis 1 Occurrences starting 01/02/2025 until 02/01/2026 [facility] Comment on above: 1 Occurrences starting 01/02/2025 until 02/01/2026 End: 07-15-2025 XR Hand - bilateral PA and Lateral and Oblique XR HAND GENERAL 3V PA/LAT/OBL BILATERAL Radiology Routine Pain in both hands 1 Occurrences starting 06/15/2024 until 07/15/2025 [facility] Work Phone: Comment on above: 1 Occurrences starting 06/15/2024 until 07/15/2025 XR Hand - bilateral PA and Lateral and Oblique XR HAND GENERAL 3V PA/LAT/OBL BILATERAL Radiology Routine Pain in both hands 06/15/2024 12:58 PM EDT [facility] Immunizations Immunization [facility] Immunization Notes Care Provider Won walters 12-31-2024 COVID-19 vaccine, ag e 12+ yr (PFIZER-BIONTECH COMIRNATY) Francisco Bahena MD Work Phone: [facility] 07-06-2024 COVID-19 vaccine, ag e 12+ yr (PFIZER-BIONTECH COMIRNATY) Francisco Bahena MD Work Phone: [facility] 06-15-2024 influenza, high dose seasonal, preservative-free Francisco Bahena MD Work Phone: [facility] 06-15-2024 influenza virus vacc ine, unspecified formulation GUILLE Baeza MD Work Phone: [facility] 04-13-2024 respiratory syncytia l virus (RSV) vaccine, adjuvanted (AREXVY) Cherelle Benavides PA-C Work Phone: [facility] 11-21-2023 COVID-19 vaccine, ag e 12+ yr, season ([employer]) Francisco Bahena MD Work Phone: [facility] 07-10-2023 influenza (aIIV4) vaccine, age 65+ yr, quadrivalent, PF (FLUAD QUAD) Mila Clancy [facility] 07-10-2023 influenza virus vacc ine, unspecified formulation Cherelle Benavides PA-C Work Phone: [facility] 04-05-2023 pneumococcal (PCV20) vaccine, 20 valent (PREVNAR 20) Cherelle Benavides PA-C Work Phone: [facility] 04-05-2023 pneumococcal Conjuga te, unspecified formulation Cherelle FERGUSON-C Work Phone: [facility] Work Phone: 07-22-2022 influenza virus vacc ine, unspecified formulation Rigoberto Church MD Work Phone: [facility] 08-01-2021 influenza, high-dose , quadrivalent vaccine (FLUZONE HIGH DOSE QUADRIVALENT) Cherelle FERGUSON-C Work Phone: [facility] 12-06-2020 COVID-19 vaccine, ag e 12+ yr (PFIZER-BIONTECH - PURPLE TOP) Cherelle Benavides PA-C Work Phone: [facility] Work Phone: 11-15-2020 COVID-19 vaccine, ag e 12+ yr (PFIZER-BIONTECH - PURPLE TOP) Cherelle Benavides PA-C Work Phone: [facility] 08-14-2020 zoster vaccine recombinant Cherelle Benavides PA-C Work Phone: [facility] 06-28-2020 influenza, high-dose , quadrivalent vaccine (FLUZONE HIGH DOSE QUADRIVALENT) Cherelle FERGUSON-C Work Phone: [facility] 05-22-2020 zoster vaccine recombinant Cherelle Benavides PA-C Work Phone: [facility] 07-03-2019 influenza, high dose seasonal, preservative-free Cherelle Benavides PA-C Work Phone: [facility] Work Phone: 07-07-2018 influenza, high dose seasonal, preservative-free Cherelle Benavides PA-C Work Phone: [facility] Work Phone: 03-13-2018 tetanus toxoid, redu robyn diphtheria toxoid, and acellular pertussis vaccine, adsorbed Cherelle Benavides PA-C Work Phone: [facility] Work Phone: 03-13-2018 zoster vaccine recombinant Cherelle Benavides PA-C Work Phone: [facility] Work Phone: 07-18-2017 influenza, high dose seasonal, preservative-free Cherelle Benavides PA-C Work Phone: [facility] 09-09-2015 pneumococcal conjuga te vaccine, 13 valent Cherelle Benavides PA-C Work Phone: [facility] 06-27-2014 influenza, high dose seasonal, preservative-free Cherelle Benavides PA-C Work Phone: [facility] 06-29-2011 influenza virus vacc ine, unspecified formulation Cherelle Benavides PA-C Work Phone: [facility] Work Phone: 01-12-2011 zoster vaccine, live Cherelle Benavides PA-C Work Phone: [facility] 07-02-2010 influenza virus vacc ine, unspecified formulation Cherelle Benavides PA-C Work Phone: [facility] 07-15-2009 influenza virus vacc ine, unspecified formulation Cherelle Benavides PA-C Work Phone: [facility] 08-01-2008 influenza virus vacc ine, unspecified formulation Cherelle Benavides PA-C Work Phone: [facility] Work Phone: 11-14-2007 diphtheria and tetan us toxoids, adsorbed for pediatric use Cherelle Benavides PA-C Work Phone: [facility] 11-14-2007 pneumococcal polysaccharide vaccine, 23 valent Cherelle Benavides PA-C Work Phone: [facility] 08-05-2005 influenza virus vacc ine, unspecified formulation Cherelle Benavides PA-C Work Phone: [facility] Work Phone: 07-01-1998 diphtheria and tetan us toxoids, adsorbed for pediatric use Cherelle Benavides PA-C Work Phone: [facility] Payers Date Payer Category Payer Self-pay [id number] 2021 Medicare [employer] MEDICARE A ETNA MEDICARE PPO [id number] 2021-Present [phone] [address] [place] [address] PPO [id number] 2021 Medicare [id number] 2021 Medicare (Managed Care) [employer] [place] [id number] 2019 Medicare [employer] MEDICARE A ETNA MEDICARE PPO [id number] 2019-Present [phone] [address] [place] [address] PPO [id number] 2011 Private Health Insurance [id number] Unknown [id number] Unknown [id number] Unknown [id number] Unknown [id number] Unknown [id number] Unknown [id number] Unknown [id number] Unknown [id number] Unknown [id number] Unknown [id number] Unknown [id number] Unknown [id number] 462 Unknown [id number] 462 Unknown [id number] 462 Unknown [id number] Social History Date Type Detail Facility Start: 05-15-2018 End: 04-12-2025 Tobacco smoking status NHIS Ex-smoker [facility] End: [birth year]24-1961 History of tobacco use Current smoker [facility] Start: 09-10-2021 End: 04-11-2025 Alcohol intake Current drinker of alcohol (finding) [facility] Start: 09-04-2021 End: 09-28-2022 History SDOH Alcohol Frequency 2 [facility] Start: 09-04-2021 End: 09-28-2022 History SDOH Alcohol Std Drinks 1 [facility] Start: 09-04-2021 End: 07-30-2022 History SDOH Social Connections Phone 4 [facility] Start: 09-04-2021 End: 09-28-2022 History SDOH Social Connections Get Together 3 [facility] Start: 09-04-2021 End: 09-28-2022 History SDOH Physical Activity DPW 0 [facility] Start: 09-04-2021 End: 09-28-2022 History SDOH Financial 5 [facility] Start: 09-23-2019 Education 17 [facility] Start: 05-15-2018 End: 05-21-2022 Tobacco Comment quit in his 20's - smoked socially while in college [facility] Start: 1940 Sex Assigned At Not on file C [facility] Start: 12-22-2021 End: 08-26-2022 Exposure to SARS-CoV-2 (event) Not sure [facility] Start: 05-18-2021 End: 09-10-2023 Tobacco smoking status NHIS Unknown if ever smoked [facility] Start: 01-28-2021 Non-smoker [facility] Start: 1940 Sex Assigned At Male [facility] End: 06-24-1963 History of tobacco use Cigarette Smoker [facility] Work Phone: Start: 05-15-2018 End: 06-15-2024 Tobacco use and exposure Smokeless tobacco non-user [facility] Work Phone: Start: 09-28-2022 End: 07-01-2023 History of Social function [facility] Start: 09-28-2022 End: 07-01-2023 Social connection and isolation [facility] Do you belong to any clubs or organizations such as latter-day groups, unions, fraternal or athletic groups, or school groups? No [facility] Are you now , , , , never or living with a partner? [facility] How often to you hav e a drink containing alcohol? Never [facility] How many standard dr inks containing alcohol do you have on a typical day? Patient does not drink [facility] Do you feel stress - tense, restless, nervous, or anxious, or unable to sleep at night because your mind is troubled all the time - these days [OSQ] To some extent [facility] (I/We) worried wheyahir er (my/our) food would run out before (I/we) got money to buy more. Never true [facility] How often to you hav e a drink containing alcohol? Monthly or less [facility] How many standard dr inks containing alcohol do you have on a typical day? 1 or 2 [facility] Do you feel stress - tense, restless, nervous, or anxious, or unable to sleep at night because your mind is troubled all the time - these days [OSQ] Not at all [facility] Start: 01-08-2025 End: 01-08-2025 Tobacco smoking status NHIS Never smoked tobacco (finding) [facility] Start: 01-08-2025 End: 01-29-2025 Sex Male (finding) [facility] Medical Equipment Procedure Code Equipment Code Equipment Origin al Text Equipment Identifier Dates Screw Dione 3 Asha nium Set Arelis Spine - [id number] Start: 12-12-2020 Randy Dione 100mm Sp inal Radius - [id number] Start: 12-12-2020 Screw Dione 3 6.5m m Titanium 55mm Bone Polyaxial Spine Thoracolumbar - [id number] Start: 12-12-2020 Screw Dione 3 6.5m m Titanium 50mm Bone Polyaxial Spine Thoracolumbar - [id number] Start: 12-12-2020 Screw Dione 3 6.5m m Titanium 45mm Bone Polyaxial Spine Thoracolumbar - [id number] Start: 12-12-2020 Spacer Avs 4d Peek-Yetter [id number] Spinal Cage Thoracolumbar Vertebral - [id number] Start: 12-12-2020 Spacer Avs 4d Pe ek [id number] Spinal Cage Thoracolumbar Vertebrae - [id number] Start: 12-12-2020 Spacer Avs 4d Peek-Yetter [id number] Spinal Cage Thoracolumbar Vertebral - [id number] Start: 12-12-2020 Stent Hydroglide Inlay Yetter 7fr Taper Teller Green Polymer Phreecoat 24cm - [id number] Start: 02-02-2021 Stent Inlay Opti ma 6fr Taper Teller Green Polymer Phreecoat 26cm Ureteral - [id number] Start: 02-02-2021 Wire Tita . 045in Stainless Steel 5.5in Fixation Trocar Smooth Guide - [id number] Start: 05-24-2018 Wire Tita X ia Fixation - [id number] Start: 12-12-2020 MESH,PERFIX FLAT PRESHAPED FDA Start: 04-13-2019 MESH,PERFIX FLAT PRESHAPED FDA Start: 07-18-2019 MESH,PERFIX FLAT PRESHAPED FDA Start: 04-13-2019 MESH,PERFIX FLAT PRESHAPED FDA Start: 07-18-2019 MESH,PERFIX FLAT PRESHAPED FDA Start: 04-13-2019 MESH,PERFIX FLAT PRESHAPED FDA Start: 07-18-2019 MESH,PERFIX FLAT PRESHAPED FDA Start: 04-13-2019 MESH,PERFIX FLAT PRESHAPED FDA Start: 07-18-2019 MESH,PERFIX FLAT PRESHAPED FDA Start: 04-13-2019 MESH,PERFIX FLAT PRESHAPED FDA Start: 07-18-2019 MESH,PERFIX FLAT PRESHAPED FDA Start: 04-13-2019 MESH,PERFIX FLAT PRESHAPED FDA Start: 07-18-2019 MESH,PERFIX FLAT PRESHAPED FDA Start: 04-13-2019 MESH,PERFIX FLAT PRESHAPED FDA Start: 07-18-2019 MESH,PERFIX FLAT PRESHAPED FDA Start: 04-13-2019 MESH,PERFIX FLAT PRESHAPED FDA Start: 07-18-2019 MESH,PERFIX FLAT PRESHAPED FDA Start: 04-13-2019 MESH,PERFIX FLAT PRESHAPED FDA Start: 07-18-2019 MESH,PERFIX FLAT PRESHAPED FDA Start: 04-13-2019 MESH,PERFIX FLAT PRESHAPED FDA Start: 07-18-2019 MESH,PERFIX FLAT PRESHAPED FDA Start: 04-13-2019 MESH,PERFIX FLAT PRESHAPED FDA Start: 07-18-2019 MESH,PERFIX FLAT PRESHAPED FDA Start: 04-13-2019 MESH,PERFIX FLAT PRESHAPED FDA Start: 07-18-2019 MESH,PERFIX FLAT PRESHAPED FDA Start: 04-13-2019 MESH,PERFIX FLAT PRESHAPED FDA Start: 07-18-2019 Goals Date Patient Goal Desired Activity /State Functional Status Date Assessment Result Facility 04-17-2025 Functional status [facility] Work Phone: 01-10-2025 Functional status [facility] Work Phone: 12-31-2024 Total score [AUDIT-C] 1 01/01/20 25 1:57 PM EDT Yash Monroe MA [facility] 09-28-2023 Functional status [facility]ulates;Beds tristan Commode;Stand with Urinal [facility] Work Phone: 08-27-2022 Are you deaf, or do you have serious difficulty hearing No 08/27/2022 4:21 PM Elizabet Moran RN No [facility] 08-27-2022 Are you blind, or do you have serious difficulty seeing, even when wearing glasses No 08/27/2022 4:21 PM Elizabet Moran RN No [facility] 08-27-2022 Do you have serious difficulty walking or climbing stairs No 08/27/2022 4:21 PM Elizabet Moran RN No [facility] 08-27-2022 Do you have difficul ty dressing or bathing No 08/27/2022 4:21 PM Elizabet Moran RN No [facility] 08-27-2022 Because of a physica l, mental, or emotional condition, do you have difficulty doing errands alone such as visiting a physician's office or shopping No 08/27/2022 4:21 PM Elizabet Moran RN No [facility] Mental Status Date Assessment Result Facility 04-17-2025 Cognitive function Appropriate;Cooperativ e [facility] Work Phone: 04-17-2025 Cognitive function Arousable To Voice/Nam e [facility] Work Phone: 04-12-2025 Cognitive function Level Of Cons ciousness Awake;Alert;Follows Commands [facility] Work Phone: 01-29-2025 Cognitive function Level Of Cons ciousness Awake;Alert;Appropriate;Fol lows Commands [facility] Work Phone: 01-10-2025 Cognitive function Voice/Name [facility] Work Phone: 01-08-2025 Cognitive function Level Of Cons ciousness Awake;Alert [facility] Work Phone: 09-28-2023 Cognitive function Voice/Name [facility] Work Phone: 09-24-2023 Cognitive function Level Of Cons ciousness Awake;Alert;Appropriate;Fol lows Commands [facility] Work Phone: 08-27-2022 Because of a physica l, mental, or emotional condition, do you have serious difficulty concentrating, remembering, or making decisions No 08/27/2022 4:21 PM Elizabet Moran, LISSETTE No [facility] 08-16-2022 Cognitive function Level Of Cons ciousness Awake;Alert;Appropriate;Fol lows Commands [facility] Work Phone: 05-03-2022 Cognitive function Level Of Cons ciousness Awake;Alert;Appropriate;Fol lows Commands [facility] Work Phone: Clinical Notes 12-17-2020 to 04-17-2025 Note Date & Type Note Facility 04-17-2025 Consult note [facility] 04-17-2025 Consult note Note Date/Time April 17, 2025 1:59pm [facility] Medical Records Department [address] [place] [id number] Counseling Note - Pharmacy 04/17/25 1132 MR#: [id number] Acct: [id number] Name: JAVIER BOND Rep #:[id number] : 1940 84 From: Danielle Houston PCP: Dr. Francisco Bahena MD Status:ADM IN [id number] Med Reconciliation Pharmacy Service has performed discharge medication reconciliation for this patient. The patient's discharge medication list was reviewed for discrepancies and discrepancies were resolved. Medications at Discharge Home Medications acetaminophen 500 mg tablet 1,000 mg PO PRN Pain 04/03/17 metronidazole 0.75 % topical cream 1 applic topical DAILY skin health 07/16/19 aspirin 81 mg tablet,delayed release (Rika Low Dose Aspirin) 81 mg PO QHS hearthealth 01/28/21 multivitamin 1 tab PO DAILY vitamin 05/18/21 pantoprazole 40 mg tablet,delayed release 40 mg PO DAILY reflux 05/03/22 d-mannose 1 ea PO DAILY 09/24/23 dupilumab 300 mg/2 mL subcutaneous pen injector (ReleadixOstrovok) 300 mg subcut .COMPLEX skin health 09/24/23 lisinopril 5 mg tablet 5 mg PO DAILY blood pressure 09/24/23 BACLOFEN SUPPOSITORY 1 supp OTHER DAILY CONSITPATION 01/08/25 Lactobacillus acidophilus 10 billion cell capsule (NewFlora) 80 mmu cells PO DAILY 01/08/25 donepezil 5 mg tablet 10 mg PO DAILY 01/08/25 furosemide 20 mg tablet 20 mg PO DAILY 01/08/25 guaifenesin 600 mg tablet, extended release 12 hr (Mucinex) 600 mg PO BID 01/08/25 melatonin 5 mg tablet 5 mg PO QHS 01/08/25 memantine 10 mg tablet 10 mg PO BID 01/08/25 methenamine hippurate 1 gram tablet 1 g PO BID 01/08/25 plecanatide 3 mg tablet (Trulance) 3 mg PO DAILY 01/08/25 sertraline 25 mg tablet 25 mg PO DINNER 01/08/25 trazodone 100 mg tablet 100 mg PO QHS 01/08/25 triamcinolone acetonide 1 applic topical DAILY PRN itching 01/08/25 hydrochlorothiazide 12.5 mg tablet 12.5 mg PO DAILY 01/29/25 ipratropium bromide 21 mcg (0.03 %) nasal spray intranasal md ordered 04/12/25 polyethylene glycol 3350 17 gram/dose oral powder (Miralax) 4 g PO DAILY 04/12/25 sertraline 25 mg tablet (Zoloft) 25 mg PO LUNCH 04/12/25 cefdinir 300 mg capsule 300 mg PO Q12 #8 caps 04/17/25 04/17/25 1132 <Electronically signed by Danielle Houston> Date _ Danielle Richards Signature (if applicable): Date CC: ~ Signed [facility] Work Phone: 1(242) 626-236907-23-2025 Discharge summary Author Elyssa Enrique [facility] Note Date/Time April 17, 2025 11:0 4am [facility] Medical Records Department [address] [place] [address] Transfer to [facility] MR#: [id number] Acct: [id number] Name: JAVIER BOND Rep #:[id number] : 1940 84 From: Elyssa Enrique MD PCP: Dr. Francisco Bahena MD Status:ADM IN Certification of patient admission REQUIRED AT TIME OF ADMISSION. I CERTIFY THAT POST-HOSPITAL ECF SERVICES ARE REQUIRED TO BE GIVEN ON AN IN-PATIENT BASIS BECAUSE OF THE ABOVE NAMED PATIENT'S NEED FOR ALF CARE ON A CONTINUING BASIS FOR THE CONDITION(S) FOR WHICH HE/SHE WAS RECEIVING IN-PATIENT HOSPITAL SERVICES PRIOR TO HIS/HER TRANSFER TO THE [facility]. 04/17/25 1104<Electronically signed by Elyssa Enrique MD> Diet Diet Order/Speech Therapy: INPATIENT Hospital Diet / Speech Therapy Order(s) 04/12/25 17:46 Diet: Regular - General Food consistency:: Regular Liquid Consistency:: Regular/Thin Type of Dietary Supplement:: Ensure Plus High Protein Diet Comments: 240mL ensure plus HP w/ breakfast tray DC O2, CPAP, BIPAP needs Home O2 Discharge instructions: No Therapies Weight Bearing: Weight bearing as tolerated Physical Therapy: Eval and Treat Occupational Therapy: Eval and Treat Problem/Diagnosis (1) Acute UTI: Status: Acute Code(s): N39.0 - Urinary tract infection, site not specified (2) Falls: Status: Acute Code(s): R29.6 - Repeated falls (3) Weakness: Status: Acute Code(s): R53.1 - Weakness Plan #Acute UTI * On IV ceftriaxone. Urine cultures growing E. coli. Patient remains on IV ceftriaxone. Will switch to PO cefdinir to complete a 5 day course. #Hypertension: Continue blood pressure medications-hydrochlorothiazide and lisinopril #Debility and weakness: PT OT on board. Patient awaiting placement in SNF. #History of chronic back pain with spinal fusion in the past: Currently on pain meds. PT OT on board. Fall precautions. #GERD: On PPI #Depression with anxiety: On sertraline #Dementia: On memantine #DVT prophylaxis: SCDs Disposition: Currently awaiting placement. Allergies/Procedures Done in Hospital Allergies Iodinated Contrast Media (CONTRASTS) Allergy (Verified 04/12/25 14:35) Hives azelaic acid (From Finacea) Adverse Reaction (Verified 04/12/25 14:35) Rash levofloxacin Adverse Reaction (Verified 04/12/25 14:35) Rash meloxicam (From Mobic) Adverse Reaction (Verified 04/12/25 14:35) Nausea misoprostol (From Cytotec) Adverse Reaction (Verified 04/12/25 14:35) Nausea nabumetone (From Relafen) Adverse Reaction (Verified 04/12/25 14:35) Nausea NSAIDS (Non-Steroidal Anti-Inflamma Adverse Reaction (Verified 04/12/25 14:35) Nausea sulfamethoxazole (From Bactrim) Adverse Reaction (Verified 04/12/25 14:35) Nausea terbinafine Adverse Reaction (Verified 04/12/25 14:35) Nausea trimethoprim (From Bactrim) Adverse Reaction (Verified 04/12/25 14:35) Nausea valdecoxib (From Bextra) Adverse Reaction (Verified 04/12/25 14:35) Other Procedures: None Type of Care/Length of Stay Estimated LOS: Convalescent Care Less Than 30 days Type of Care Needed: Skilled Rehab Potential: Fair Prognosis: Fair Additional Orders/Day of Discharge Day of Discharge: 04/17/25 Dietary and Speech Recommendations Dietitian Recommendations/Changes: Will continue Regular Diet. Will add 240mL Ensure Plus HP w/ breakfast tray. Discharge Plan Admission Admit Date/Time: 04/12/25 17:05 Primary Reason for Your Visit: UTI Attending Provider: Elyssa Enrique Primary Care Provider: Francisco Bahena Consulting Providers: Monique Agarwal; Elias Kaur; Elyssa Enrique Instructions Patient Instructions: ED Bladder Infection, Male (Adult) Discharge Orders/Prescriptions Prescriptions: New cefdinir 300 mg Capsule 300 mg PO Q12 Qty: 8 0RF Continued metronidazole 0.75 % cream 1 applic TOPICAL DAILY acetaminophen 500 MG tablet 1,000 mg PO PRN aspirin [Rika Low Dose Aspirin] 81 mg Tablet,Delayed Release (Dr/Ec) 81 mg PO QHS multivitamin Tablet 1 tab PO DAILY pantoprazole 40 mg Tablet,Delayed Release (Dr/Ec) 40 mg PO DAILY lisinopril 5 mg tablet 5 mg PO DAILY d-mannose Powder 1 ea PO DAILY Rx Instructions: 09/29 teaspoon on cereal each am. Dupixent Pen 300 mg/2 mL pen injector 300 mg subcut .COMPLEX Rx Instructions: 300 mg subcutaneously EVERY 8 WEEKS; donepezil 5 mg tablet 10 mg PO DAILY trazodone 100 mg tablet 100 mg PO QHS furosemide 20 mg tablet 20 mg PO DAILY memantine 10 mg tablet 10 mg PO BID methenamine hippurate 1 gram tablet 1 g PO BID sertraline 25 mg tablet 25 mg PO DINNER triamcinolone acetonide 1 applic topical DAILY PRN (Reason: itching) melatonin 5 mg tablet 5 mg PO QHS NewFlora 10 billion cell capsule 80 mmu cells PO DAILY guaifenesin [Mucinex] 600 mg tablet extended release 12hr 600 mg PO BID Trulance 3 mg tablet 3 mg PO DAILY Patient Comments: ON 12/13/24 BACLOFEN SUPPOSITORY 1 supp OTHER DAILY hydrochlorothiazide 12.5 mg tablet 12.5 mg PO DAILY polyethylene glycol 3350 [Miralax] 17 gram/dose powder 4 g PO DAILY sertraline [Zoloft] 25 mg tablet 25 mg PO LUNCH Rx Instructions: lunch ipratropium bromide 21 mcg (0.03 %) spray,non-aerosol INTRANASAL Patient Comments: [NO ORIGINAL SIG] Discontinued doxycycline hyclate 20 mg tablet 20 mg PO BID Patient Comments: Referrals / Follow Up: Francisco Bahena MD [Primary Care Provider] - Within 1 Week Disposition Disposition (needs filled in before D/C Order can be placed): [facility] 04/17/25 1104 <Electronically signed by Elyssa Enrique MD> Cosigner Signature (if applicable): CC: Dr. Elias Kaur MD; Dr. Francisco Bahena MD; Dr. Elyssa Enrique MD; Dr. Monique Agarwal MD ~ [facility] Work Phone: 1(509) 960-303107-23-2025 Discharge summary [facility] Medical Records Department [address] [place] [address] Transfer to [facility] MR#: [id number] Acct: [id number] Name: JAVIER BOND Rep #:[id number] : 1940 84 From: Elyssa Enrique MD PCP: Dr. Francisco Bahena MD Status:ADM IN Certification of patient admission REQUIRED AT TIME OF ADMISSION. I CERTIFY THAT POST-HOSPITAL ECF SERVICES ARE REQUIRED TO BE GIVEN ON AN IN-PATIENT BASIS BECAUSE OF THE ABOVE NAMED PATIENT'S NEED FOR ALF CARE ON A CONTINUING BASIS FOR THE CONDITION(S) FOR WHICH HE/SHE WAS RECEIVING IN-PATIENT HOSPITAL SERVICES PRIOR TO HIS/HER TRANSFER TO THE F. 04/17/25 1104 Diet Diet Order/Speech Therapy: INPATIENT Hospital Diet / Speech Therapy Order(s) 04/12/25 17:46 Diet: Regular - General Food consistency:: Regular Liquid Consistency:: Regular/Thin Type of Dietary Supplement:: Ensure Plus High Protein Diet Comments: 240mL ensure plus HP w/ breakfast tray DC O2, CPAP, BIPAP needs Home O2 Discharge instructions: No Therapies Weight Bearing: Weight bearing as tolerated Physical Therapy: Eval and Treat Occupational Therapy: Eval and Treat Problem/Diagnosis (1) Acute UTI: Status: Acute Code(s): N39.0 - Urinary tract infection, site not specified (2) Falls: Status: Acute Code(s): R29.6 - Repeated falls (3) Weakness: Status: Acute Code(s): R53.1 - Weakness Plan #Acute UTI * On IV ceftriaxone. Urine cultures growing E. coli. Patient remains on IV ceftriaxone. Will switchto PO cefdinir to complete a 5 day course. #Hypertension: Continue blood pressure medications-hydrochlorothiazide and lisinopril #Debility and weakness: PT OT on board. Patient awaiting placement in SNF. #History of chronic back pain with spinal fusion in the past: Currently on pain meds. PT OT on board. Fall precautions. #GERD: On PPI #Depression with anxiety: On sertraline #Dementia: On memantine #DVT prophylaxis: SCDs Disposition: Currently awaiting placement. Allergies/Procedures Done in Hospital Allergies Iodinated Contrast Media (CONTRASTS) Allergy (Verified 04/12/25 14:35) Hives azelaic acid (From Finacea) Adverse Reaction (Verified 04/12/25 14:35) Rash levofloxacin Adverse Reaction (Verified 04/12/25 14:35) Rash meloxicam (From Mobic) Adverse Reaction (Verified 04/12/25 14:35) Nausea misoprostol (From Cytotec) Adverse Reaction (Verified 04/12/25 14:35) Nausea nabumetone (From Relafen) Adverse Reaction (Verified 04/12/25 14:35) Nausea NSAIDS (Non-Steroidal Anti-Inflamma Adverse Reaction (Verified 04/12/25 14:35) Nausea sulfamethoxazole (From Bactrim) Adverse Reaction (Verified 04/12/25 14:35) Nausea terbinafine Adverse Reaction (Verified 04/12/25 14:35) Nausea trimethoprim (From Bactrim) Adverse Reaction (Verified 04/12/25 14:35) Nausea valdecoxib (From Bextra) Adverse Reaction (Verified 04/12/25 14:35) Other Procedures: None Type of Care/Length of Stay Estimated LOS: Convalescent Care Less Than 30 days Type of Care Needed: Skilled Rehab Potential: Fair Prognosis: Fair Additional Orders/Day of Discharge Day of Discharge: 04/17/25 Dietary and Speech Recommendations Dietitian Recommendations/Changes: Will continue Regular Diet. Will add 240mL Ensure Plus HP w/ breakfast tray. Discharge Plan Admission Admit Date/Time: 04/12/25 17:05 Primary Reason for Your Visit: UTI Attending Provider: Elyssa Enrique Primary Care Provider: Francisco Bahena Consulting Providers: Monique Agarwal; Elias Kaur; Elyssa Enrique Instructions Patient Instructions: ED Bladder Infection, Male (Adult) Discharge Orders/Prescriptions Prescriptions: New cefdinir 300 mg Capsule 300 mg PO Q12 Qty: 8 0RF Continued metronidazole 0.75 % cream 1 applic TOPICAL DAILY acetaminophen 500 MG tablet 1,000 mg PO PRN aspirin [Rika Low Dose Aspirin] 81 mg Tablet,Delayed Release (Dr/Ec) 81 mg PO QHS multivitamin Tablet 1 tab PO DAILY pantoprazole 40 mg Tablet,Delayed Release (Dr/Ec) 40 mg PO DAILY lisinopril 5 mg tablet 5 mg PO DAILY d-mannose Powder 1 ea PO DAILY Rx Instructions: 1/4 teaspoon on cereal each am. Dupixent Pen 300 mg/2 mL pen injector 300 mg subcut .COMPLEX Rx Instructions: 300 mg subcutaneously EVERY 8 WEEKS; donepezil 5 mg tablet 10 mg PO DAILY trazodone 100 mg tablet 100 mg PO QHS furosemide 20 mg tablet 20 mg PO DAILY memantine 10 mg tablet 10 mg PO BID methenamine hippurate 1 gram tablet 1 g PO BID sertraline 25 mg tablet 25 mg PO DINNER triamcinolone acetonide 1 applic topical DAILY PRN (Reason: itching) melatonin 5 mg tablet 5 mg PO QHS NewFlora 10 billion cell capsule 80 mmu cells PO DAILY guaifenesin [Mucinex] 600 mg tablet extended release 12hr 600 mg PO BID Trulance 3 mg tablet 3 mg PO DAILY Patient Comments: ON 12/13/24 BACLOFEN SUPPOSITORY 1 supp OTHER DAILY hydrochlorothiazide 12.5 mg tablet 12.5 mg PO DAILY polyethylene glycol 3350 [Miralax] 17 gram/dose powder 4 g PO DAILY sertraline [Zoloft] 25 mg tablet 25 mg PO LUNCH Rx Instructions: lunch ipratropium bromide 21 mcg (0.03 %) spray,non-aerosol INTRANASAL Patient Comments: [NO ORIGINAL SIG] Discontinued doxycycline hyclate 20 mg tablet 20 mg PO BID Patient Comments: Referrals / Follow Up: Francisco Bahena MD [Primary Care Provider] - Within 1 Week Disposition Disposition (needs filled in before D/C Order can be placed): [facility] 04/17/25 1104 Cosigner Signature (if applicable): CC: Dr. Elias Kaur MD; Dr. Francisco Bahena MD; Dr. Elyssa Enrique MD; Dr. Monique Agarwal MD ~ [facility]07-22-2025 Progress [facility] Note Date/Time April 16, 2025 11:1 3am [facility] Medical Records Department [address] [place] [address] Progress Note 04/16/25 1103 MR#: [id number] Acct: [id number] Name: JAVIER BOND Rep #:[id number] : 1940 84 From: Elyssa Enrique MD PCP: Dr. Francisco Bahena MD Status:ADM IN Location: [facility] [id number] Subjective Subjective Patient seen and examined. He was seen with his nurse by his bedside. He had no active complaints. He is awaiting placement. Review of systems otherwise negative. He has remained hemodynamically stable. Objective Data Objective Data Vital Signs: Vital Signs Temp Pulse Resp BP Pulse Ox O2 Del Method 98.4 F 72 16 124/59 H 96 Room Air 04/16/25 08:27 04/16/25 08:27 04/16/25 08:27 04/16/25 08:27 04/16/25 08:27 04/16/25 08:27 Oxygen Delivery Method Room Air Weight: 154 lb 1.65 oz Body Mass Index (BMI) 23.4 Intake & Output: Intake and Output for Last 24 Hours 04/14/25 04/15/25 04/16/25 23:59 23:59 23:59 Intake Total 1100 / 1100 350 / 350 50 / 50 Output Total 250 / 250 Balance 850 / 850 350 / 350 50 / 50 Lab / Micro Data 04/16/25 05:15 04/16/25 05:15 Labs: Laboratory Results - last 24 hr 04/16/25 05:15: WBC 4.6, RBC 3.69 L, Hgb 11.7 L, Hct 35.8 L, MCV 97.0 H, MCH 31.7, MCHC 32.7, RDW Std Deviation 44.0 H, RDW Coeff of Ezequiel 12.4, Plt Count 220,MPV 8.9, Immature Gran % (Auto) 0.200, Neut % (Auto) 41.9 L, Lymph % (Auto) 43.9H, [place] % (Auto) 10.7 H, Eos % (Auto) 2.4, Baso % (Auto) 0.9, Absolute Neuts (auto) 1.9 L, Absolute Lymphs (auto) 2.02, Nucleated RBC % 0, Sodium 140, Potassium 3.8, Chloride 104, Carbon Dioxide 26.5, Anion Gap 10, BUN 19, Creatinine 0.87, Estim Creat Clear Calc 63.33, Est GFR (MDRD) Non-Af 86, BUN/Creatinine Ratio 21.5 H, Glucose 91, Calcium 9.0 Micro: Microbiology 04/12/25 15:23 Urine, Clean Catch Urine Culture - Final Escherichia coli Physical Exam Const alert, oriented x3, no apparent distress and well nourished General Appearance: cooperative HEENT normocephalic, head/scalp atraumatic, moist oral mucous membranes, oropharynx normal and gingiva normal Eyes PERRL and EOMs intact bilaterally Neck no lymphadenopathy and supple Lymph Lymphatic: no lymphadenopathy noted and no lymphedema noted Resp normal respiratory effort, normal air movement and clear to auscultation bilaterally Cardio regular rate, regular rhythm, S1 normal heart sound, S2 normal heart sound and no murmurs GI normal to inspection, nondistended, normoactive bowel sounds, soft to palpation,non-tender and non-distended Extremity normal capillary refill, no clubbing, cyanosis or edema and no calf tenderness General Extremity: no tenderness to palpation of joints or extremities Skin General Skin Exam: no breakdown Neuro CN's II-XII intact bilaterally, no focal motor deficits, no sensory deficits noted and deep tendon reflexes 2+ bilaterally Motor Exam: general weakness Psych thought process normal, cooperative and affect normal Appearance: appropriate Assessment & Plan Assessment/Plan (1) Acute UTI: (2) Falls: (3) Weakness: PLAN: Plan #Acute UTI * On IV ceftriaxone. Urine cultures growing E. coli. Patient remains on IV ceftriaxone. Will switch to PO cefdinir to complete a 5 day course. #Hypertension: Continue blood pressure medications-hydrochlorothiazide and lisinopril #Debility and weakness: PT OT on board. Patient awaiting placement in SNF. #History of chronic back pain with spinal fusion in the past: Currently on pain meds. PT OT on board. Fall precautions. #GERD: On PPI #Depression with anxiety: On sertraline #Dementia: On memantine #DVT prophylaxis: SCDs Disposition: Currently awaiting placement. Charges/Coding Visit Charges Inpatient E&M: 70209 Subs Hosp L2 04/16/25 1113 <Electronically signed by Elyssa Enrique MD> Elyssa Enrique MD Cosigner Signature (if applicable): CC: ~ Signed [facility] Work Phone: 1(184) 226-820807-22-2025 Progress note [facility] Medical Records Department [address] [place] [address] Progress Note 04/16/25 1103 MR#: [id number] Acct: [id number] Name: JAVIER BOND Rep #:[id number] : 1940 84 From: Elyssa Enrique MD PCP: Dr. Francisco Bahena MD Status:ADM IN Location: [facility] RC195-4 Subjective Subjective Patient seen and examined. He was seen with his nurse by his bedside. He had no active complaints. He is awaiting placement. Review of systems otherwise negative. He has remained hemodynamically stable. Objective Data Objective Data Vital Signs: Vital Signs Temp Pulse Resp BP Pulse Ox O2 Del Method 98.4 F 72 16 124/59 H 96 Room Air 04/16/25 08:27 04/16/25 08:27 04/16/25 08:27 04/16/25 08:27 04/16/25 08:27 04/16/25 08:27 Oxygen Delivery Method Room Air Weight: 154 lb 1.65 oz Body Mass Index (BMI) 23.4 Intake & Output: Intake and Output for Last 24 Hours 04/14/25 04/15/25 04/16/25 23:59 23:59 23:59 Intake Total 1100 / 1100 350 / 350 50 / 50 Output Total 250 / 250 Balance 850 / 850 350 / 350 50 / 50 Lab / Micro Data 04/16/25 05:15 04/16/25 05:15 Labs: Laboratory Results - last 24 hr 04/16/25 05:15: WBC 4.6, RBC 3.69 L, Hgb 11.7 L, Hct 35.8 L, MCV 97.0 H, MCH 31.7, MCHC 32.7, RDW Std Deviation 44.0 H, RDW Coeff of Ezequiel 12.4, Plt Count 220,MPV 8.9, Immature Gran % (Auto) 0.200, Neut % (Auto) 41.9 L, Lymph % (Auto) 43.9H, [place] % (Auto) 10.7 H, Eos % (Auto) 2.4, Baso % (Auto) 0.9, Absolute Neuts (auto) 1.9 L, Absolute Lymphs (auto) 2.02, Nucleated RBC % 0, Sodium 140, Potassium 3.8, Chloride 104, Carbon Dioxide 26.5, Anion Gap 10, BUN 19, Creatinine 0.87, Estim Creat Clear Calc63.33, Est GFR (MDRD) Non-Af 86, BUN/Creatinine Ratio 21.5 H, Glucose 91, Calcium 9.0 Micro: Microbiology 04/12/25 15:23 Urine, Clean Catch Urine Culture - Final Escherichia coli Physical Exam Const alert, oriented x3, no apparent distress and well nourished General Appearance: cooperative HEENT normocephalic, head/scalp atraumatic, moist oral mucous membranes, oropharynx normal and gingiva normal Eyes PERRL and EOMs intact bilaterally Neck no lymphadenopathy and supple Lymph Lymphatic: no lymphadenopathy noted and no lymphedema noted Resp normal respiratory effort, normal air movement and clear to auscultation bilaterally Cardio regular rate, regular rhythm, S1 normal heart sound, S2 normal heart sound and no murmurs GI normal to inspection, nondistended, normoactive bowel sounds, soft to palpation,non-tender and non-distended Extremity normal capillary refill, no clubbing, cyanosis or edema and no calf tenderness General Extremity: no tenderness to palpation of joints or extremities Skin General Skin Exam: no breakdown Neuro CN's II-XII intact bilaterally, no focal motor deficits, no sensory deficits noted and deep tendon reflexes 2+ bilaterally Motor Exam: general weakness Psych thought process normal, cooperative and affect normal Appearance: appropriate Assessment & Plan Assessment/Plan (1) Acute UTI: (2) Falls: (3) Weakness: PLAN: Plan #Acute UTI * On IV ceftriaxone. Urine cultures growing E. coli. Patient remains on IV ceftriaxone. Will switchto PO cefdinir to complete a 5 day course. #Hypertension: Continue blood pressure medications-hydrochlorothiazide and lisinopril #Debility and weakness: PT OT on board. Patient awaiting placement in SNF. #History of chronic back pain with spinal fusion in the past: Currently on pain meds. PT OT on board. Fall precautions. #GERD: On PPI #Depression with anxiety: On sertraline #Dementia: On memantine #DVT prophylaxis: SCDs Disposition: Currently awaiting placement. Charges/Coding Visit Charges Inpatient E&M: 30910 Subs Hosp L2 04/16/25 1113 Elyssa Enrique MD Cosigner Signature (if applicable): CC: ~ Signed [facility]07-21-2025 Progress note Author Elyssa Enrique [facility] Note Date/Time April 15, 2025 3:31 pm [facility] Medical Records Department [address] [place] [address] Progress Note 04/15/25 1525 MR#: [id number] Acct: [id number] Name: JAVIER BOND Rep #:[id number] : 1940 84 From: Elyssa Enrique MD PCP: Dr. Francisco Bahena MD Status:ADM IN Location: [facility] [id number] Subjective Subjective Patient seen and examined. I saw him with his nurse by his bedside. He had no active complaints. He had an uneventful night. Review of symptoms otherwise negative. He has remained hemodynamically stable. He is awaiting placement. Objective Data Objective Data Vital Signs: Vital Signs Temp Pulse Resp BP Pulse Ox O2 Del Method 98.1 F 72 16 124/78 H 95 Room Air 04/15/25 15:19 04/15/25 15:19 04/15/25 15:19 04/15/25 15:19 04/15/25 15:19 04/15/25 15:19 Oxygen Delivery Method Room Air Weight: 154 lb 1.65 oz Body Mass Index (BMI) 23.4 Intake & Output: Intake and Output for Last 24 Hours 04/13/25 04/14/25 04/15/25 23:59 23:59 23:59 Intake Total 2300 / 2300 1100 / 1100 350 / 350 Output Total 100 / 100 250 / 250 Balance 2200 / 2200 850 / 850 350 / 350 Lab / Micro Data 04/15/25 06:18 04/15/25 06:18 Labs: Laboratory Results - last 24 hr 04/15/25 06:18: WBC 4.1 L, RBC 3.87 L, Hgb 12.3 L, Hct 37.4 L, MCV 96.6 H, MCH 31.8, MCHC 32.9, RDW Std Deviation 43.6, RDW Coeff of Ezequiel 12.4, Plt Count 210, MPV 9.0, Immature Gran % (Auto) 0.000, Neut % (Auto) 43.6 L, Lymph % (Auto) 44.1H, [place] % (Auto) 9.6, Eos % (Auto) 2.2, Baso % (Auto) 0.5, Absolute Neuts (auto)1.8 L, Absolute Lymphs (auto) 1.80, Nucleated RBC % 0, Sodium 141, Potassium 3.7, Chloride 103, Carbon Dioxide 26.9, Anion Gap 11, BUN 16, Creatinine 0.89, Estim Creat Clear Calc 61.91, Est GFR (MDRD) Non-Af 86, BUN/Creatinine Ratio 18.3, Glucose 91, Calcium 9.3 Micro: Microbiology 04/12/25 15:23 Urine, Clean Catch Urine Culture - Final Escherichia coli Physical Exam Const alert, oriented x3, no apparent distress and well nourished General Appearance: cooperative HEENT normocephalic, head/scalp atraumatic, moist oral mucous membranes, oropharynx normal and gingiva normal Eyes PERRL and EOMs intact bilaterally Neck no lymphadenopathy and supple Lymph Lymphatic: no lymphadenopathy noted and no lymphedema noted Resp normal respiratory effort, normal air movement and clear to auscultation bilaterally Cardio regular rate, regular rhythm, S1 normal heart sound, S2 normal heart sound and no murmurs GI normal to inspection, nondistended, normoactive bowel sounds, soft to palpation,non-tender and non-distended Extremity normal capillary refill, no clubbing, cyanosis or edema and no calf tenderness General Extremity: no tenderness to palpation of joints or extremities Skin General Skin Exam: no breakdown Neuro CN's II-XII intact bilaterally, no focal motor deficits, no sensory deficits noted and deep tendon reflexes 2+ bilaterally Motor Exam: general weakness Psych thought process normal, cooperative and affect normal Appearance: appropriate Assessment & Plan Assessment/Plan (1) Acute UTI: (2) Falls: (3) Weakness: PLAN: Plan #Acute UTI * On IV ceftriaxone. Urine cultures growing E. coli. Patient remains on IV ceftriaxone. #Hypertension: Continue blood pressure medications-hydrochlorothiazide and lisinopril #Debility and weakness: PT OT on board. Patient awaiting placement in SNF. #History of chronic back pain with spinal fusion in the past: Currently on pain meds. PT OT on board. Fall precautions. #GERD: On PPI #Depression with anxiety: On sertraline #Dementia: On memantine #DVT prophylaxis: SCDs Disposition: Currently awaiting placement. Charges/Coding Visit Charges Inpatient E&M: 13320 Subs Hosp L2 04/15/25 1531 <Electronically signed by Elyssa Enrique MD> Elyssa Enrique MD Cosigner Signature (if applicable): CC: ~ Signed [facility] Work Phone: 1(446) 405-721307-21-2025 Progress note [facility] Medical Records Department [address] [place] [address] Progress Note 04/15/25 1525 MR#: [id number] Acct: [id number] Name: JAVIER BOND Rep #:[id number] : 1940 84 From: Elyssa Enrique MD PCP: Dr. Francisco Bahena MD Status:ADM IN Location: [facility]3 [id number] Subjective Subjective Patient seen and examined. I saw him with his nurse by his bedside. He had no active complaints. Hehad an uneventful night. Review of symptoms otherwise negative. He has remained hemodynamically stable. He is awaiting placement. Objective Data Objective Data Vital Signs: Vital Signs Temp Pulse Resp BP Pulse Ox O2 Del Method 98.1 F 72 16 124/78 H 95 Room Air 04/15/25 15:19 04/15/25 15:19 04/15/25 15:19 04/15/25 15:19 04/15/25 15:19 04/15/25 15:19 Oxygen Delivery Method Room Air Weight: 154 lb 1.65 oz Body Mass Index (BMI) 23.4 Intake & Output: Intake and Output for Last 24 Hours 04/13/25 04/14/25 04/15/25 23:59 23:59 23:59 Intake Total 2300 / 2300 1100 / 1100 350 / 350 Output Total 100 / 100 250 / 250 Balance 2200 / 2200 850 / 850 350 / 350 Lab / Micro Data 04/15/25 06:18 04/15/25 06:18 Labs: Laboratory Results - last 24 hr 04/15/25 06:18: WBC 4.1 L, RBC 3.87 L, Hgb 12.3 L, Hct 37.4 L, MCV 96.6 H, MCH 31.8, MCHC 32.9, RDWStd Deviation 43.6, RDW Coeff of Ezequiel 12.4, Plt Count 210, MPV 9.0, Immature Gran % (Auto) 0.000, Neut % (Auto) 43.6 L, Lymph % (Auto) 44.1H, [place] % (Auto) 9.6, Eos % (Auto) 2.2, Baso % (Auto) 0.5, Absolute Neuts (auto)1.8 L, Absolute Lymphs (auto) 1.80, Nucleated RBC % 0, Sodium 141, Potassium 3.7,Chloride 103, Carbon Dioxide 26.9, Anion Gap 11, BUN 16, Creatinine 0.89, Estim Creat Clear Calc 61.91, Est GFR (MDRD) Non-Af 86, BUN/Creatinine Ratio 18.3, Glucose 91, Calcium 9.3 Micro: Microbiology 04/12/25 15:23 Urine, Clean Catch Urine Culture - Final Escherichia coli Physical Exam Const alert, oriented x3, no apparent distress and well nourished General Appearance: cooperative HEENT normocephalic, head/scalp atraumatic, moist oral mucous membranes, oropharynx normal and gingiva normal Eyes PERRL and EOMs intact bilaterally Neck no lymphadenopathy and supple Lymph Lymphatic: no lymphadenopathy noted and no lymphedema noted Resp normal respiratory effort, normal air movement and clear to auscultation bilaterally Cardio regular rate, regular rhythm, S1 normal heart sound, S2 normal heart sound and no murmurs GI normal to inspection, nondistended, normoactive bowel sounds, soft to palpation,non-tender and non-distended Extremity normal capillary refill, no clubbing, cyanosis or edema and no calf tenderness General Extremity: no tenderness to palpation of joints or extremities Skin General Skin Exam: no breakdown Neuro CN's II-XII intact bilaterally, no focal motor deficits, no sensory deficits noted and deep tendon reflexes 2+ bilaterally Motor Exam: general weakness Psych thought process normal, cooperative and affect normal Appearance: appropriate Assessment & Plan Assessment/Plan (1) Acute UTI: (2) Falls: (3) Weakness: PLAN: Plan #Acute UTI * On IV ceftriaxone. Urine cultures growing E. coli. Patient remains on IV ceftriaxone. #Hypertension: Continue blood pressure medications-hydrochlorothiazide and lisinopril #Debility and weakness: PT OT on board. Patient awaiting placement in SNF. #History of chronic back pain with spinal fusion in the past: Currently on pain meds. PT OT on board. Fall precautions. #GERD: On PPI #Depression with anxiety: On sertraline #Dementia: On memantine #DVT prophylaxis: SCDs Disposition: Currently awaiting placement. Charges/Coding Visit Charges Inpatient E&M: 62952 Subs Hosp L2 04/15/25 1531 Elyssa Enrique MD Cosigner Signature (if applicable): CC: ~ Signed [facility]07-21-2025 History of Present illness Narrative* Ronan Jean LPN - 04/15/2025 7:59 AM EDT Scan on 04/13/2025 12:06 AM by ProviderLuz Maria PA-C: Consultation - Emergency Medicine Scan on 04/12/2025 5:31 PM by ProviderLuz Maria PA-C [facility] Progress note Author Elias Kaur [facility] Note Date/Time April 14, 2025 8:04 am [facility] Medical Records Department [address] [place] [id number] Progress Note - Hospitalist 04/14/25 0800 MR#: [id number] Acct: [id number] Name: JAVIER BOND Rep #:[id number] : 1940 84 From: Elias Kaur MD PCP: Dr. Francisco Bahena MD Status:ADM IN Location: [place] [address] Reason for Visit Chief Complaint: Weakness and falls Subjective Subjective Patient urine cultures resulted positive for Escherichia coli. Patient remains on appropriate antibiotic therapy Objective Data Objective Data Vital Signs: Vital Signs Temp Pulse Resp BP Pulse Ox O2 Del Method 98 F 60 15 116/59 L 96 Room Air 04/14/25 05:30 04/14/25 05:30 04/14/25 05:30 04/14/25 05:30 04/14/25 05:30 04/14/25 05:30 Oxygen Delivery Method Room Air Weight: 69.9 kg Body Mass Index (BMI) 23.4 Intake & Output: Intake and Output for Last 24 Hours 04/12/25 04/13/25 04/14/25 23:59 23:59 23:59 Intake Total 1270 / 1270 2300 / 2300 200 / 200 Output Total 400 / 400 100 / 100 50 / 50 Balance 870 / 870 2200 / 2200 150 / 150 Lab / Micro Data 04/14/25 06:11 04/14/25 06:11 Labs: Laboratory Results - last 24 hr 04/14/25 06:11: WBC 3.5 L, RBC 3.68 L, Hgb 11.6 L, Hct 35.0 L, MCV 95.1 H, MCH 31.5, MCHC 33.1, RDW Std Deviation 42.5, RDW Coeff of Ezequiel 12.2, Plt Count 167, MPV 8.9, Immature Gran % (Auto) 0.300, Neut % (Auto) 47.7, Lymph % (Auto) 39.9, [place] % (Auto) 9.9, Eos % (Auto) 1.4, Baso % (Auto) 0.8, Absolute Neuts (auto) 1.7 L, Absolute Lymphs (auto) 1.41, Nucleated RBC % 0, Sodium 140, Potassium 3.5, Chloride 105, Carbon Dioxide 26.0, Anion Gap 10, BUN 16, Creatinine 0.78, Estim Creat Clear Calc 68.88, Est GFR (MDRD) Non-Af 89, BUN/Creatinine Ratio 19.8, Glucose 94, Calcium 9.0, Phosphorus 3.0, Magnesium 1.9 Micro: Microbiology 04/12/25 15:23 Urine, Clean Catch Urine Culture - Final Escherichia coli Physical Exam Narrative GENERAL: cooperative HEENT: Atraumatic; normocephalic EYES; Anicteric, Normal Conjunctiva NECK; supple, normal thyroid, RESPIRATORY: Diminished to auscultation CARDIOVASCULAR: Regular S1 S2, GI: soft, normoactive bowel sounds, : No Renal angle tenderness; EXTREMITIES: No edema, no clubbing, MUSCULOSKELETAL: no muscle wasting NEURO: Awake; no lateralizing signs. SKIN: No Rash PSYCH; Flat affect Assessment & Plan Assessment/Plan (1) Weakness: (2) UTI (urinary tract infection): PLAN: Plan Patient is an 84-year-old gentleman who presented with progressive generalized weakness and falls. Urinalysis obtained on admission came back consistent with UTI admitted to regular nursing floor for further management 1. Acute complicated UTI ? Patient was started on Ceftriaxone admitted to regular floor urine culture sent ? 04/14/2025;Patient urine cultures resulted positive for Escherichia coli. Patient remains on appropriate antibiotic therapy 2. Physical deconditioning/physical debility ? Requested for PT OT eval and high school social studies tutor to assist with discharge planning ? 04/14/2025; patient was seen in consultation by case management patient and family provided a list of SNF facilities 3. Hypertension ? Blood pressure controlled, home medications continued with dose adjustment as needed 4. History of chronic back pain with spinal fusion in the past ? Pain meds as needed in addition to PT/OT as ordered above 5. GERD ? Patient is on PPI 6. Depression with anxiety ? Patient's sertraline 7. Dementia - Patient is on memantine continue 8. DVT prophylaxis ? Subcu Lovenox Charges/Coding Visit Charges Inpatient E&M: 69891 Subs Hosp L2 04/14/25 0804 <Electronically signed by Elias Kaur MD> Cosigner Signature (if applicable): CC: ~ Signed [facility] Work Phone: 1(957) 321-756107-20-2025 Progress note [facility] Medical Records Department [address] [place] [address] Progress Note - Hospitalist 04/14/25 0800 MR#: [id number] Acct: [id number] Name: JAVIER BOND Rep #:[id number] : 1940 84 From: Elias Kaur MD PCP: Dr. Francisco Bahena MD Status:ADM [facility] for Visit Chief Complaint: Weakness and falls Subjective Subjective Patient urine cultures resulted positive for Escherichia coli. Patient remains on appropriate antibiotic therapy Objective Data Objective Data Vital Signs: Vital Signs Temp Pulse Resp BP Pulse Ox O2 Del Method 98 F 60 15 116/59 L 96 Room Air 04/14/25 05:30 04/14/25 05:30 04/14/25 05:30 04/14/25 05:30 04/14/25 05:30 04/14/25 05:30 Oxygen Delivery Method Room Air Weight: 69.9 kg Body Mass Index (BMI) 23.4 Intake & Output: Intake and Output for Last 24 Hours 04/12/25 04/13/25 04/14/25 23:59 23:59 23:59 Intake Total 1270 / 1270 2300 / 2300 200 / 200 Output Total 400 / 400 100 / 100 50 / 50 Balance 870 / 870 2200 / 2200 150 / 150 Lab / Micro Data 04/14/25 06:11 04/14/25 06:11 Labs: Laboratory Results - last 24 hr 04/14/25 06:11: WBC 3.5 L, RBC 3.68 L, Hgb 11.6 L, Hct 35.0 L, MCV 95.1 H, MCH 31.5, MCHC 33.1, RDWStd Deviation 42.5, RDW Coeff of Ezequiel 12.2, Plt Count 167, MPV 8.9, Immature Gran % (Auto) 0.300, Neut % (Auto) 47.7, Lymph % (Auto) 39.9, [place] % (Auto) 9.9, Eos % (Auto) 1.4, Baso % (Auto) 0.8, Absolute Neuts (auto) 1.7 L, Absolute Lymphs (auto) 1.41, Nucleated RBC % 0, Sodium 140, Potassium 3.5, Chloride 105, Carbon Dioxide 26.0, Anion Gap 10, BUN 16, Creatinine 0.78, Estim Creat Clear Calc 68.88, Est GFR (MDRD) Non-Af 89, BUN/Creatinine Ratio 19.8, Glucose 94, Calcium 9.0, Phosphorus 3.0, Magnesium 1.9 Micro: Microbiology 04/12/25 15:23 Urine, Clean Catch Urine Culture - Final Escherichia coli Physical Exam Narrative GENERAL: cooperative HEENT: Atraumatic; normocephalic EYES; Anicteric, Normal Conjunctiva NECK; supple, normal thyroid, RESPIRATORY: Diminished to auscultation CARDIOVASCULAR: Regular S1 S2, GI: soft, normoactive bowel sounds, : No Renal angle tenderness; EXTREMITIES: No edema, no clubbing, MUSCULOSKELETAL: no muscle wasting NEURO: Awake; no lateralizing signs. SKIN: No Rash PSYCH; Flat affect Assessment & Plan Assessment/Plan (1) Weakness: (2) UTI (urinary tract infection): PLAN: Plan Patient is an 84-year-old gentleman who presented with progressive generalized weakness and falls. Urinalysis obtained on admission came back consistent with UTI admitted to regular nursing floor forfurther management 1. Acute complicated UTI ? Patient was started on Ceftriaxone admitted to regular floor urine culture sent ? 04/14/2025;Patient urine cultures resulted positive for Escherichia coli. Patient remains on appropriate antibiotic therapy 2. Physical deconditioning/physical debility ? Requested for PT OT eval and high school social studies tutor to assist with discharge planning ? 04/14/2025; patient was seen in consultation by case management patient and family provided a listof SNF facilities 3. Hypertension ? Blood pressure controlled, home medications continued with dose adjustment as needed 4. History of chronic back pain with spinal fusion in the past ? Pain meds as needed in addition to PT/OT as ordered above 5. GERD ? Patient is on PPI 6. Depression with anxiety ? Patient's sertraline 7. Dementia - Patient is on memantine continue 8. DVT prophylaxis ? Subcu Lovenox Charges/Coding Visit Charges Inpatient E&M: 97393 Subs Hosp L2 04/14/25 0804 Cosigner Signature (if applicable): CC: ~ Signed [facility]07-19-2025 Progress note Author Elias Kaur [facility] Note Date/Time April 13, 2025 10:4 4am [facility] Medical Records Department [address] [place] [address] Progress Note - Hospitalist 04/13/25 0748 MR#: [id number] Acct: [id number] Name: JAVIER BOND Rep #:[id number] : 1940 84 From: Elias Kaur MD PCP: Dr. Francisco Bahena MD Status:ADM IN Location: [place] [address]-1 Reason for Visit Chief Complaint: Weakness and falls Subjective Subjective Patient is an 84-year-old gentleman who presented with progressive generalized weakness and falls. Urinalysis obtained on admission came back consistent with UTI admitted to regular nursing floor for further management Objective Data Objective Data Vital Signs: Vital Signs Temp Pulse Resp BP Pulse Ox O2 Del Method 97.9 F 63 16 133/65 H 95 Room Air 04/13/25 03:40 04/13/25 03:40 04/13/25 03:40 04/13/25 03:40 04/13/25 03:40 04/13/25 03:40 Oxygen Delivery Method Room Air Weight: 69.853 kg Body Mass Index (BMI) 23.4 Intake & Output: Intake and Output for Last 24 Hours 04/11/25 04/12/25 04/13/25 23:59 23:59 23:59 Intake Total 1270 / 1270 1300 / 1300 Output Total 400 / 400 Balance 870 / 870 1300 / 1300 Lab / Micro Data 04/13/25 05:13 04/13/25 05:13 Labs: Laboratory Results - last 24 hr 04/12/25 15:23: WBC 4.5, RBC 4.08 L, Hgb 13.1, Hct 39.7 L, MCV 97.3 H, MCH 32.1 H, MCHC 33.0, RDW Std Deviation 45.0 H, RDW Coeff of Ezequiel 12.6, Plt Count 169, MPV 9.3, Immature Gran % (Auto) 0.200, Neut % (Auto) 54.9, Lymph % (Auto) 33.8, [place] % (Auto) 9.5, Eos % (Auto) 0.9, Baso % (Auto) 0.7, Absolute Neuts (auto) 2.5, Absolute Lymphs (auto) 1.53, Nucleated RBC % 0, Sodium 139, Potassium 4.0, Chloride 102, Carbon Dioxide 26.1, Anion Gap 11, BUN 18, Creatinine 0.82, Estim Creat Clear Calc 67.20, Est GFR (MDRD) Non-Af 88, BUN/Creatinine Ratio 22.1 H, Glucose 100 H, Calcium 9.4, Urine Color Yellow, Urine Clarity Sl. Cloudy, Urine pH 6.5, Ur Specific [place] 1.010, Urine Protein 15 H, Urine Glucose (UA) Normal, Urine Ketones Negative, Urine Occult Blood 25 H, Urine Nitrite Negative,Urine Bilirubin Negative, Urine Urobilinogen Normal, Ur Leukocyte Esterase 500 H, Urine RBC 0-5 SEEN, Urine WBC 25-50 SEEN, Ur Squamous Epith Cells 0 SEEN, Urine Bacteria 3+, Urine Mucus 0 SEEN 04/13/25 05:13: WBC 4.2 L, RBC 3.44 L, Hgb 10.8 L, Hct 32.6 L, MCV 94.8 H, MCH 31.4, MCHC 33.1, RDW Std Deviation 42.9, RDW Coeff of Ezequiel 12.4, Plt Count 159, MPV 9.2, Immature Gran % (Auto) 0.200, Neut % (Auto) 51.3, Lymph % (Auto) 35.5, [place] % (Auto) 10.6 H, Eos % (Auto) 1.4, Baso % (Auto) 1.0, Absolute Neuts (auto)2.1, Absolute Lymphs (auto) 1.48, Nucleated RBC % 0, Sodium 139, Potassium 3.4, Chloride 106, Carbon Dioxide 25.2, Anion Gap 8, BUN 16, Creatinine 0.78, Estim Creat Clear Calc 68.88, Est GFR (MDRD) Non-Af 89, BUN/Creatinine Ratio 20.0, Glucose 89, Calcium 8.7, Vitamin B12 796, TSH 2.590 Radiography Diagnostic Testing: Radiology Impression Chest X-Ray 04/12/25 15:30 IMPRESSION: 1. No evidence of acute cardiopulmonary pathology. 2. Small hiatal hernia. Reading Location: [place] [address] Physical Exam Narrative GENERAL: cooperative HEENT: Atraumatic; normocephalic EYES; Anicteric, Normal Conjunctiva NECK; supple, normal thyroid, RESPIRATORY: Diminished to auscultation CARDIOVASCULAR: Regular S1 S2, GI: soft, normoactive bowel sounds, : No Renal angle tenderness; EXTREMITIES: No edema, no clubbing, MUSCULOSKELETAL: no muscle wasting NEURO: Awake; no lateralizing signs. SKIN: No Rash PSYCH; Flat affect Assessment & Plan Assessment/Plan (1) Weakness: (2) UTI (urinary tract infection): PLAN: Plan Patient is an 84-year-old gentleman who presented with progressive generalized weakness and falls. Urinalysis obtained on admission came back consistent with UTI admitted to regular nursing floor for further management 1. Acute complicated UTI ? Patient was started on Ceftriaxone admitted to regular floor urine culture sent 2. Physical deconditioning/physical debility ? Requested for PT OT eval and high school social studies tutor to assist with discharge planning Hypertension ? Blood pressure controlled, home medications continued with dose adjustment as needed 4. History of chronic back pain with spinal fusion in the past ? Pain meds as needed in addition to PT/OT as ordered above 5. GERD ? Patient is on PPI 6. Depression with anxiety ? Patient's sertraline 7. Dementia - Patient is on memantine continue 8. DVT prophylaxis ? Subcu Lovenox Charges/Coding Visit Charges Inpatient E&M: 77457 Subs Hosp L2 04/13/25 1046 <Electronically signed by Elias Kaur MD> Cosigner Signature (if applicable): CC: ~ Signed [facility] Work Phone: [phone] Progress note [facility] Medical Records Department [address] [place] [address] Progress Note - Hospitalist 04/13/25 0748 MR#: [id number] Acct: [id number] Name: JAVIER BOND Rep #:[id number] : 1940 84 From: Elias Kaur MD PCP: Dr. Francisco Bahena MD Status:ADM IN Location: [facility] [id number] Reason for Visit Chief Complaint: Weakness and falls Subjective Subjective Patient is an 84-year-old gentleman who presented with progressive generalized weakness and falls. Urinalysis obtained on admission came back consistent with UTI admitted to regular nursing floor forfurther management Objective Data Objective Data Vital Signs: Vital Signs Temp Pulse Resp BP Pulse Ox O2 Del Method 97.9 F 63 16 133/65 H 95 Room Air 04/13/25 03:40 04/13/25 03:40 04/13/25 03:40 04/13/25 03:40 04/13/25 03:40 04/13/25 03:40 Oxygen Delivery Method Room Air Weight: 69.853 kg Body Mass Index (BMI) 23.4 Intake & Output: Intake and Output for Last 24 Hours 04/11/25 04/12/25 04/13/25 23:59 23:59 23:59 Intake Total 1270 / 1270 1300 / 1300 Output Total 400 / 400 Balance 870 / 870 1300 / 1300 Lab / Micro Data 04/13/25 05:13 04/13/25 05:13 Labs: Laboratory Results - last 24 hr 04/12/25 15:23: WBC 4.5, RBC 4.08 L, Hgb 13.1, Hct 39.7 L, MCV 97.3 H, MCH 32.1 H, MCHC 33.0, RDW Std Deviation 45.0 H, RDW Coeff of Ezequiel 12.6, Plt Count 169, MPV 9.3, Immature Gran % (Auto) 0.200, Neut % (Auto) 54.9, Lymph % (Auto) 33.8, [place] % (Auto) 9.5, Eos % (Auto) 0.9, Baso % (Auto) 0.7, Absolute Neuts (auto) 2.5, Absolute Lymphs (auto) 1.53, Nucleated RBC % 0, Sodium 139, Potassium 4.0, Chloride 102, Carbon Dioxide 26.1, Anion Gap 11, BUN 18, Creatinine 0.82, Estim Creat Clear Calc 67.20,Est GFR (MDRD) Non-Af 88, BUN/Creatinine Ratio 22.1 H, Glucose 100 H, Calcium 9.4, Urine Color Yellow, Urine Clarity Sl. Cloudy, Urine pH 6.5, Ur Specific [place] 1.010, Urine Protein 15 H, Urine Glucose (UA) Normal, Urine Ketones Negative, Urine Occult Blood 25 H, Urine Nitrite Negative,Urine Bilirubin Negative, Urine Urobilinogen Normal, Ur Leukocyte Esterase 500 H, Urine RBC 0-5 SEEN, Urine WBC 25-50 SEEN, Ur Squamous Epith Cells 0 SEEN, Urine Bacteria 3+, Urine Mucus 0 SEEN 04/13/25 05:13: WBC 4.2 L, RBC 3.44 L, Hgb 10.8 L, Hct 32.6 L, MCV 94.8 H, MCH 31.4, MCHC 33.1, RDWStd Deviation 42.9, RDW Coeff of Ezequiel 12.4, Plt Count 159, MPV 9.2, Immature Gran % (Auto) 0.200, Neut % (Auto) 51.3, Lymph % (Auto) 35.5, [place] % (Auto) 10.6 H, Eos % (Auto) 1.4, Baso % (Auto) 1.0, Absolute Neuts (auto)2.1, Absolute Lymphs (auto) 1.48, Nucleated RBC % 0, Sodium 139, Potassium 3.4, Chloride 106, Carbon Dioxide 25.2, Anion Gap 8, BUN 16, Creatinine 0.78, Estim Creat Clear Calc 68.88, Est GFR (MDRD) Non-Af 89, BUN/Creatinine Ratio 20.0, Glucose 89, Calcium 8.7, Vitamin B12 796, TSH2.590 Radiography Diagnostic Testing: Radiology Impression Chest X-Ray 04/12/25 15:30 IMPRESSION: 1. No evidence of acute cardiopulmonary pathology. 2. Small hiatal hernia. Reading Location: [id number] Physical Exam Narrative GENERAL: cooperative HEENT: Atraumatic; normocephalic EYES; Anicteric, Normal Conjunctiva NECK; supple, normal thyroid, RESPIRATORY: Diminished to auscultation CARDIOVASCULAR: Regular S1 S2, GI: soft, normoactive bowel sounds, : No Renal angle tenderness; EXTREMITIES: No edema, no clubbing, MUSCULOSKELETAL: no muscle wasting NEURO: Awake; no lateralizing signs. SKIN: No Rash PSYCH; Flat affect Assessment & Plan Assessment/Plan (1) Weakness: (2) UTI (urinary tract infection): PLAN: Plan Patient is an 84-year-old gentleman who presented with progressive generalized weakness and falls. Urinalysis obtained on admission came back consistent with UTI admitted to regular nursing floor forfurther management 1. Acute complicated UTI ? Patient was started on Ceftriaxone admitted to regular floor urine culture sent 2. Physical deconditioning/physical debility ? Requested for PT OT eval and high school social studies tutor to assist with discharge planning Hypertension ? Blood pressure controlled, home medications continued with dose adjustment as needed 4. History of chronic back pain with spinal fusion in the past ? Pain meds as needed in addition to PT/OT as ordered above 5. GERD ? Patient is on PPI 6. Depression with anxiety ? Patient's sertraline 7. Dementia - Patient is on memantine continue 8. DVT prophylaxis ? Subcu Lovenox Charges/Coding Visit Charges Inpatient E&M: 36613 Subs Hosp L2 04/13/25 1044 Cosigner Signature (if applicable): CC: ~ Signed [facility]07-19-2025 Discharge summary Author Marlo Echevarria [facility] Note Date/Time April 12, 2025 11:5 5pm [facility] Medical Records Department [address] [place] [address] Emergency Department Summary 04/12/25 MR#: [id number] Acct: [id number] Name: JAVIER BOND Rep #:[id number] : 1940 84 From: Marlo Echevarria DO PCP: Dr. Francisco Bahena MD Status:[facility]M [facility] History of Present Illness Chief Complaint: General Illness Detail of Chief Complaint: Weakness and failure to thrive Informant: patient and spouse/S.O. Narrative Narrative: Patient presents to the emergency department complaint generalized weakness for at least several weakness. Patient states that he is fallen 3 times in the last2 months. Patient saw his back surgeon who did his initial spinal fusion a month ago. He was told he would need another surgery and it was scheduled for April. Yesterday patient decided he did not want to go through another surgery. He states that at times he just feels like his legs are getting give out. He has not fallen recently. Patient feels that he needs a alf placement and called his primary care physician who advised him to come to the emergency department to get admitted for placement. Patient denies fever cough or recent illness. Denies chest pain or shortness of breath. Denies abdominal pain. Denies vomiting or diarrhea. [facility] Medical History History of ESBL E. coli infection Anxiety Depression Kidney stones Kidney disease Former smoker Anxiety and depression HLD (hyperlipidemia) CKD (chronic kidney disease), stage II Dementia Left inguinal hernia Groin pain Inguinal hernia bilateral, non-recurrent Right inguinal hernia History of kidney stones History of hiatal hernia Abdominal pain BPH (benign prostatic hyperplasia) Arthritis History of back problems Hypertension Home Medications ?Medication ?Instructions ?Recorded ?Last Taken ?Type acetaminophen 500 mg tablet 1,000 mg PO PRN Pain 04/03 Unknown History doxycycline hyclate 20 mg tablet 20 mg PO BID infectio n 03/13/19 01/07/25 History metronidazole 0.75 % topical cream 1 applic topical DA [facility] skin health 07/16/19 01/07/25 History aspirin 81 mg tablet,delayed 81 mg PO QHS heart health 01/28/21 01/07/25 History release (Rika Low Dose Aspirin) multivitamin 1 tab PO DAILY vitamin 05/1801/07/25 History pantoprazole 40 mg tablet,delayed 40 mg PO DAILY reflu x 05/03/22 01/07/25 His tory release d-mannose 1 ea PO DAILY 09/24/2301/07 History dupilumab 300 mg/2 mL subcutaneous 300 mg subcut .COMP LUIS skin health 09/24/23 Unknown History pen injector (Dupixent) lisinopril 5 mg tablet 5 mg PO DAILY blood pressure 09/24/23 Unknown History Held on 04/12/25. Instructions: Ordered BACLOFEN SUPPOSITORY 1 supp OTHER DAILY CONSITPAT ION 01/08/25 Unknown History Lactobacillus acidophilus 10 80 mmu cells PO DAILY 01/07/25 History billion cell capsule (NewFlora) donepezil 5 mg tablet 10 mg PO DAILY 01/08/2512/25 History furosemide 20 mg tablet 20 mg PO DAILY 01/08/2512/25 History guaifenesin 600 mg tablet, 600 mg PO BID 01/08/2512/25 History extended release 12 hr (Mucinex) melatonin 5 mg tablet 5 mg PO QHS 01/08/25 5 History memantine 10 mg tablet 10 mg PO BID 01/08/25 History methenamine hippurate 1 gram tablet 1 g PO BID 5 01/07/25 History plecanatide 3 mg tablet (Trulance) 3 mg PO DAILY 01/08 Unknown History Held on 01/29/25. Instructions: reports being on hold 12/13/2024 sertraline 25 mg tablet 25 mg PO DINNER 01/08/25 History trazodone 100 mg tablet 100 mg PO QHS 01/08/2501/07 History triamcinolone acetonide 1 applic topical DAILY PRN i tching 01/08/25 01/07/25 History fosfomycin tromethamine 3 gram 1 packet PO QODAY 3 dos es #1 ea 01/10/25 Unknown Rx oral packet hydrochlorothiazide 12.5 mg tablet 12.5 mg PO DAILY Unknown History sulfamethoxazole 800 1 tab PO BID 01/29/25 Unknow n History mg-trimethoprim 160 mg tablet ipratropium bromide 21 mcg (0.03 intranasal 04/12/25 U nknown History %) nasal spray polyethylene glycol 3350 17 4 g PO DAILY 04/12/25 Unkn own History gram/dose oral powder (Miralax) sertraline 25 mg tablet (Zoloft) 25 mg PO LUNCH Unknown History Allergy/AdvReac Type Severity Reaction Status Date / Time Iodinated Contrast Media Allergy Hives Verified 04/12/25 14:35 (CONTRASTS) azelaic acid (From Finacea) AdvReac Rash Verified 04/12/25 14:35 levofloxacin AdvReac Rash Verified 04/12/25 14:35 meloxicam (From Mobic) AdvReac Nausea Verified 04/12/25 14:35 misoprostol (From Cytotec) AdvReac Nausea Verified 04/12/25 14:35 nabumetone (From Relafen) AdvReac Nausea Verified 04/12/25 14:35 NSAIDS (Non-Steroidal AdvReac Nausea Verified 04/12/25 14:35 Anti-Inflamma sulfamethoxazole (From AdvReac Nausea Verified 04/12/25 14:35 Bactrim) terbinafine AdvReac Nausea Verified 04/12/25 14:35 trimethoprim (From Bactrim) AdvReac Nausea Verified 04/12/25 14:35 valdecoxib (From Bextra) AdvReac Other Verified 04/12/25 14:35 Family History Father Colon cancer Mother Cancer lung Hypertension Brother Cancer Surgical History History of cholecystectomy History of left inguinal hernia repair (~07/18/19) History of right inguinal hernia repair History of colonoscopy (~02/2019) history repair left thumb History of hemorrhoidectomy History of bilateral cataract extraction history ureteral stent insertion History of laparoscopic cholecystectomy history lap hiatal hernia repair Hx of repair of right rotator cuff Hx of repair of left rotator cuff history exacorporeal shock wave lithrotripsy Social History household members: spouse Smoking Status: Former smoker alcohol intake: current alcohol intake frequency: a few times a month substance use type: does not use ROS ROS ED Review of Systems ROS Unobtainable: other Constitutional Constitutional ED: Reports lethargy; Denies chills, fever(s), sweats or weight loss Eyes Eyes: Denies blurry vision, change in vision or diplopia ENT ENT ED: Denies rhinorrhea or sore throat Cardiovascular Cardiovascular: Denies chest pain, orthopnea or racing heartbeat Respiratory/Chest Respiratory/Chest: Denies cough, dyspnea, dyspnea on exertion, orthopnea or sputum Gastrointestinal Gastrointestinal: Denies abdominal pain, diarrhea, nausea or vomiting Genitourinary Genitourinary ED: Denies dysuria, hematuria or urinary frequency Musculoskeletal Musculoskeletal: Denies arthralgias, back pain, myalgias or neck pain Integumentary Denies abscess, Abrasions or rash Neurologic Neurologic: Reports weakness; Denies headache(s) Psychiatric Psychiatric: Denies anxiety, depression or suicidal thoughts Endocrine Endocrinology: Denies polydipsia, polyphagia or polyuria Hematologic/Lymphatic Hematologic/Lymphatic: Denies easy bleeding, easy bruising or lymphadenopathy Allergic/Immunologic Allergic/Immunologic ED: Denies mouth swelling, tongue swelling or urticaria EXAM Physical Exam Const Vital Signs: 04/12/25 14:31 04/12/25 14:53 Temperature 98.2 F Temperature Source Oral Pulse Rate 64 Respiratory Rate 16 Respiratory Effort Normal Non-Labored Respiratory Pattern Normal Blood Pressure 145/43 H Blood Pressure Mean 77 Pulse Ox 100 Oxygen Delivery Method Room Air Positive well nourished and well developed General Appearance ED: well developed and NAD HEENT Reports TM's clear and moist mucous membranes normocephalic and atraumatic; Negative for trauma or tenderness Tympanic Membrane ED: Yes TM's clear Eyes PERRL and EOMs intact bilaterally General Eye ED: Negative for pale conjunctiva or scleral icterus Neck no lymphadenopathy, supple and no JVD General: Negative for tenderness Chest Wall inspection of chest normal and palpation of chest normal Chest: Negative for tenderness Resp normal respiratory effort and clear to auscultation bilaterally Effort and Inspection: Negative for respiratory distress or pain with movement Auscultation: Negative for rhonchi, wheezes or diminished lung sounds Cardio regular rate, regular rhythm, S1 normal heart sound, S2 normal heart sound and no murmurs Peripheral Pulses: pulses 2+ throughout GI normal to inspection, nondistended, normoactive bowel sounds, soft to palpation,non-tender, non-distended and no masses Back/Spine no CVA tenderness and no thoracic nor lumbar tenderness Extremity normal to inspection General Extremety ED: Negative for edema General Extremity: Negative for edema Neuro oriented x3, CN's II-XII intact bilaterally, no sensory deficits noted and gait normal Neuro Narrative: No focal neurologic deficits on exam. Able to lift both legs off the bed without difficulty for count of 10. Sensorium / Orientation: awake, alert, oriented to person, oriented to place andoriented to time Motor Exam: strength 5/5 throughout and strength abnormal Psych mental status grossly normal Skin no rashes or lesions noted and no wounds MDM MDM MDM Narrative Medical decision making narrative: Patient presenting with generalized weakness and requesting admission for placement for extended care facility. Clinically looks well. IV line established. CBC with differential obtained show, 4.5 with hemoglobin 13 and platelet count of 165. Chemistry is unremarkable. BUN 18 and creatinine 0.82. Urinalysis obtained with signs of infection with 500 leukocyte esterase as well as 25-50 WBCs and +3 bacteria. Urine culture was sent. Patient started on Rocephin 1 g IV. EKG obtained showed a sinus rhythm with rate of [address] segment changes. Case will be discussed with hospitalist to evaluate patient for admission Lab Data Attestation: I reviewed the patient's lab results. Labs: Laboratory Results - last 24 hr 04/12/25 15:23 WBC 4.5 RBC 4.08 L Hgb 13.1 Hct 39.7 L MCV 97.3 H MCH 32.1 H MCHC 33.0 RDW Std Deviation 45.0 H RDW Coeff of Ezequiel 12.6 Plt Count 169 MPV 9.3 Immature Gran % (Auto) 0.200 Neut % (Auto) 54.9 Lymph % (Auto) 33.8 [place] % (Auto) 9.5 Eos % (Auto) 0.9 Baso % (Auto) 0.7 Absolute Neuts (auto) 2.5 Absolute Lymphs (auto) 1.53 Nucleated RBC % 0 Sodium 139 Potassium 4.0 Chloride 102 Carbon Dioxide 26.1 Anion Gap 11 BUN 18 Creatinine 0.82 Estim Creat Clear Calc 67.20 Est GFR (MDRD) Non-Af 88 BUN/Creatinine Ratio 22.1 H Glucose 100 H Calcium 9.4 Urine Color Yellow Urine Clarity Sl. Cloudy Urine pH 6.5 Ur Specific [place] 1.010 Urine Protein 15 H Urine Glucose (UA) Normal Urine Ketones Negative Urine Occult Blood 25 H Urine Nitrite Negative Urine Bilirubin Negative Urine Urobilinogen Normal Ur Leukocyte Esterase 500 H Urine RBC 0-5 SEEN Urine WBC 25-50 SEEN Ur Squamous Epith Cells 0 SEEN Urine Bacteria 3+ Urine Mucus 0 SEEN Radiography Diagnostic Testing: Clinical Impression(s) from Imaging Studies Chest X-Ray 04/12/25 15:30 IMPRESSION: 1. No evidence of acute cardiopulmonary pathology. 2. Small hiatal hernia. Reading Location: [place] [address] 1 view chest x-ray obtained interpreted by myself as no evidence of infiltrate or pneumothorax or acute disease process. Radiology in agreement felt there wasa small hiatal hernia. 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 Discharge Plan Triage Chief Complaint: General Illness ED Provider: Marlo Echevarria Dx/Rx/DC Orders Clinical Impression: Weakness, Acute UTI, Falls Prescriptions: No Action metronidazole 0.75 % cream 1 applic TOPICAL DAILY acetaminophen 500 MG tablet 1,000 mg PO PRN doxycycline hyclate 20 mg tablet 20 mg PO BID Patient Comments: aspirin [Rika Low Dose Aspirin] 81 mg Tablet,Delayed Release (Dr/Ec) 81 mg PO QHS multivitamin Tablet 1 tab PO DAILY pantoprazole 40 mg Tablet,Delayed Release (Dr/Ec) 40 mg PO DAILY lisinopril 5 mg tablet 5 mg PO DAILY d-mannose Powder 1 ea PO DAILY Rx Instructions: / teaspoon on cereal each am. Dupixent Pen 300 mg/2 mL pen injector 300 mg subcut .COMPLEX Rx Instructions: 300 mg subcutaneously EVERY 8 WEEKS; donepezil 5 mg tablet 10 mg PO DAILY trazodone 100 mg tablet 100 mg PO QHS furosemide 20 mg tablet 20 mg PO DAILY memantine 10 mg tablet 10 mg PO BID methenamine hippurate 1 gram tablet 1 g PO BID sertraline 25 mg tablet 25 mg PO DINNER triamcinolone acetonide 1 applic topical DAILY PRN (Reason: itching) melatonin 5 mg tablet 5 mg PO QHS NewFlora 10 billion cell capsule 80 mmu cells PO DAILY guaifenesin [Mucinex] 600 mg tablet extended release 12hr 600 mg PO BID Trulance 3 mg tablet 3 mg PO DAILY Patient Comments: ON 12/13/24 BACLOFEN SUPPOSITORY 1 supp OTHER DAILY fosfomycin tromethamine 3 gram packet 1 packet PO QODAY Qty: 1 0RF sulfamethoxazole-trimethoprim 800-160 mg tablet 1 tab PO BID hydrochlorothiazide 12.5 mg tablet 12.5 mg PO DAILY polyethylene glycol 3350 [Miralax] 17 gram/dose powder 4 g PO DAILY sertraline [Zoloft] 25 mg tablet 25 mg PO LUNCH Rx Instructions: lunch ipratropium bromide 21 mcg (0.03 %) spray,non-aerosol INTRANASAL Patient Comments: [NO ORIGINAL SIG] Primary Care Provider: Francisco Bahena Referrals: Francisco Bahena MD [Primary Care Provider] - Print Language: Tanzanian Disposition Disposition: Acute Care Hospital [facility] What to do if you have Problems For any increased pain, shortness of breath, bleeding, nausea or vomiting, chestpain, or any unexpected problems, contact your Primary Care Provider. Call [facility] ([phone]) or report to the closest Emergency Room. Call 911 if necessary. 04/12/25 4064 <Electronically signed by Marlo Echevarria DO> Cosigner Signature (if applicable): CC: Dr. Francisco Bahena MD ~ Signed [facility] Work Phone: [phone] Discharge summary [facility] Medical Records Department [address] [place] [address] Emergency Department Summary 04/12/25 MR#: [id number] Acct: [id number] Name: JAVIER BOND Rep #:[id number] : 1940 84 From: Marlo Echevarria DO PCP: Dr. Francisco Bahena MD Status:ADM IN Location: [facility] IT663-9 HPI History of Present Illness Chief Complaint: General Illness Detail of Chief Complaint: Weakness and failure to thrive Informant: patient and spouse/S.O. Narrative Narrative: Patient presents to the emergency department complaint generalized weakness for at least several weakness. Patient states that he is fallen 3 times in the last2 months. Patient saw his back surgeon who did his initial spinal fusion a month ago. He was told he would need another surgery and it was scheduled for April. Yesterday patient decided he did not want to go through another surgery. He stat es that at times he just feels like his legs are getting give out. He has not fallen recently. Patient feels that he needs a alf placement and called his primary care physician who advised him to come to the emergency department to get admitted for placement. Patient denies fever cough or recent illness. Denies chest pain or shortness of breath. Denies abdominal pain. Denies vomiting or diarrhea. [facility] Medical History History of ESBL E. coli infection Anxiety Depression Kidney stones Kidney disease Former smoker Anxiety and depression HLD (hyperlipidemia) CKD (chronic kidney disease), stage II Dementia Left inguinal hernia Groin pain Inguinal hernia bilateral, non-recurrent Right inguinal hernia History of kidney stones History of hiatal hernia Abdominal pain BPH (benign prostatic hyperplasia) Arthritis History of back problems Hypertension Home Medications ?Medication ?Instructions ?Recorded ?Last Taken ?Type acetaminophen 500 mg tablet 1,000 mg PO PRN Pain 04/03 Unknown History doxycycline hyclate 20 mg tablet 20 mg PO BID infectio n 03/13/19 01/07/25 History metronidazole 0.75 % topical cream 1 applic topical DA [facility] skin health 07/16/19 01/07/25 History aspirin 81 mg tablet,delayed 81 mg PO QHS heart health 01/28/21 01/07/25 History release (Rika Low Dose Aspirin) multivitamin 1 tab PO DAILY vitamin 05/1801/07/25 History pantoprazole 40 mg tablet,delayed 40 mg PO DAILY reflu x 05/03/22 01/07/25 His tory release d-mannose 1 ea PO DAILY 09/24/2301/07 History dupilumab 300 mg/2 mL subcutaneous 300 mg subcut .COMP LUIS skin health 09/24/23 Unknown History pen injector (Dupixent) lisinopril 5 mg tablet 5 mg PO DAILY blood pressure 09/24/23 Unknown History Held on 04/12/25. Instructions: Ordered BACLOFEN SUPPOSITORY 1 supp OTHER DAILY CONSITPAT ION 01/08/25 Unknown History Lactobacillus acidophilus 10 80 mmu cells PO DAILY 01/07/25 History billion cell capsule (NewFlora) donepezil 5 mg tablet 10 mg PO DAILY 01/08/2512/25 History furosemide 20 mg tablet 20 mg PO DAILY 01/08/2512/25 History guaifenesin 600 mg tablet, 600 mg PO BID 01/08/2512/25 History extended release 12 hr (Mucinex) melatonin 5 mg tablet 5 mg PO QHS 01/08/25 5 History memantine 10 mg tablet 10 mg PO BID 01/08/25 History methenamine hippurate 1 gram tablet 1 g PO BID 5 01/07/25 History plecanatide 3 mg tablet (Trulance) 3 mg PO DAILY 01/08 Unknown History Held on 01/29/25. Instructions: reports being on hold 12/13/2024 sertraline 25 mg tablet 25 mg PO DINNER 01/08/25 History trazodone 100 mg tablet 100 mg PO QHS 01/08/2501/07 History triamcinolone acetonide 1 applic topical DAILY PRN i tching 01/08/25 01/07/25 History fosfomycin tromethamine 3 gram 1 packet PO QODAY 3 dos es #1 ea 01/10/25 Unknown Rx oral packet hydrochlorothiazide 12.5 mg tablet 12.5 mg PO DAILY Unknown History sulfamethoxazole 800 1 tab PO BID 01/29/25 Unknow n History mg-trimethoprim 160 mg tablet ipratropium bromide 21 mcg (0.03 intranasal 04/12/25 U nknown History %) nasal spray polyethylene glycol 3350 17 4 g PO DAILY 04/12/25 Unkn own History gram/dose oral powder (Miralax) sertraline 25 mg tablet (Zoloft) 25 mg PO LUNCH Unknown History Allergy/AdvReac Type Severity Reaction Status Date / Time Iodinated Contrast Media Allergy Hives Verified 04/12/25 14:35 (CONTRASTS) azelaic acid (From Finacea) AdvReac Rash Verified 04/12/25 14:35 levofloxacin AdvReac Rash Verified 04/12/25 14:35 meloxicam (From Mobic) AdvReac Nausea Verified 04/12/25 14:35 misoprostol (From Cytotec) AdvReac Nausea Verified 04/12/25 14:35 nabumetone (From Relafen) AdvReac Nausea Verified 04/12/25 14:35 NSAIDS (Non-Steroidal AdvReac Nausea Verified 04/12/25 14:35 Anti-Inflamma sulfamethoxazole (From AdvReac Nausea Verified 04/12/25 14:35 Bactrim) terbinafine AdvReac Nausea Verified 04/12/25 14:35 trimethoprim (From Bactrim) AdvReac Nausea Verified 04/12/25 14:35 valdecoxib (From Bextra) AdvReac Other Verified 04/12/25 14:35 Family History Father Colon cancer Mother Cancer lung Hypertension Brother Cancer Surgical History History of cholecystectomy History of left inguinal hernia repair (~07/18/19) History of right inguinal hernia repair History of colonoscopy (~02/2019) history repair left thumb History of hemorrhoidectomy History of bilateral cataract extraction history ureteral stent insertion History of laparoscopic cholecystectomy history lap hiatal hernia repair Hx of repair of right rotator cuff Hx of repair of left rotator cuff history exacorporeal shock wave lithrotripsy Social History household members: spouse Smoking Status: Former smoker alcohol intake: current alcohol intake frequency: a few times a month substance use type: does not use ROS ROS ED Review of Systems ROS Unobtainable: other Constitutional Constitutional ED: Reports lethargy; Denies chills, fever(s), sweats or weight loss Eyes Eyes: Denies blurry vision, change in vision or diplopia ENT ENT ED: Denies rhinorrhea or sore throat Cardiovascular Cardiovascular: Denies chest pain, orthopnea or racing heartbeat Respiratory/Chest Respiratory/Chest: Denies cough, dyspnea, dyspnea on exertion, orthopnea or sputum Gastrointestinal Gastrointestinal: Denies abdominal pain, diarrhea, nausea or vomiting Genitourinary Genitourinary ED: Denies dysuria, hematuria or urinary frequency Musculoskeletal Musculoskeletal: Denies arthralgias, back pain, myalgias or neck pain Integumentary Denies abscess, Abrasions or rash Neurologic Neurologic: Reports weakness; Denies headache(s) Psychiatric Psychiatric: Denies anxiety, depression or suicidal thoughts Endocrine Endocrinology: Denies polydipsia, polyphagia or polyuria Hematologic/Lymphatic Hematologic/Lymphatic: Denies easy bleeding, easy bruising or lymphadenopathy Allergic/Immunologic Allergic/Immunologic ED: Denies mouth swelling, tongue swelling or urticaria EXAM Physical Exam Const Vital Signs: 04/12/25 14:31 04/12/25 14:53 Temperature 98.2 F Temperature Source Oral Pulse Rate 64 Respiratory Rate 16 Respiratory Effort Normal Non-Labored Respiratory Pattern Normal Blood Pressure 145/43 H Blood Pressure Mean 77 Pulse Ox 100 Oxygen Delivery Method Room Air Positive well nourished and well developed General Appearance ED: well developed and NAD HEENT Reports TM's clear and moist mucous membranes normocephalic and atraumatic; Negative for trauma or tenderness Tympanic Membrane ED: Yes TM's clear Eyes PERRL and EOMs intact bilaterally General Eye ED: Negative for pale conjunctiva or scleral icterus Neck no lymphadenopathy, supple and no JVD General: Negative for tenderness Chest Wall inspection of chest normal and palpation of chest normal Chest: Negative for tenderness Resp normal respiratory effort and clear to auscultation bilaterally Effort and Inspection: Negative for respiratory distress or pain with movement Auscultation: Negative for rhonchi, wheezes or diminished lung sounds Cardio regular rate, regular rhythm, S1 normal heart sound, S2 normal heart sound and no murmurs Peripheral Pulses: pulses 2+ throughout GI normal to inspection, nondistended, normoactive bowel sounds, soft to palpation,non-tender, non-distended and no masses Back/Spine no CVA tenderness and no thoracic nor lumbar tenderness Extremity normal to inspection General Extremety ED: Negative for edema General Extremity: Negative for edema Neuro oriented x3, CN's II-XII intact bilaterally, no sensory deficits noted and gait normal Neuro Narrative: No focal neurologic deficits on exam. Able to lift both legs off the bed without difficulty for count of 10. Sensorium / Orientation: awake, alert, oriented to person, oriented to place andoriented to time Motor Exam: strength 5/5 throughout and strength abnormal Psych mental status grossly normal Skin no rashes or lesions noted and no wounds MDM MDM MDM Narrative Medical decision making narrative: Patient presenting with generalized weakness and requesting admission for placement for extended care facility. Clinically looks well. IV line established. CBC with differential obtained show, 4.5 with hemoglobin 13 and platelet count of 165. Chemistry is unremarkable. BUN 18 and creatinine 0.82. Ur inalysis obtained with signs of infection with 500 leukocyte esterase as well as 25-50 WBCs and +3 bacteria. Urine culture was sent. Patient started on Rocephin 1 g IV. EKG obtained showed a sinus rhythm with rate of [address] segment changes. Case will be discussed with hospitalist toevaluate patient for admission Lab Data Attestation: I reviewed the patient's lab results. Labs: Laboratory Results - last 24 hr 07/18/25 15:23 WBC 4.5 RBC 4.08 L Hgb 13.1 Hct 39.7 L MCV 97.3 H MCH 32.1 H MCHC 33.0 RDW Std Deviation 45.0 H RDW Coeff of Ezequiel 12.6 Plt Count 169 MPV 9.3 Immature Gran % (Auto) 0.200 Neut % (Auto) 54.9 Lymph % (Auto) 33.8 [place] % (Auto) 9.5 Eos % (Auto) 0.9 Baso % (Auto) 0.7 Absolute Neuts (auto) 2.5 Absolute Lymphs (auto) 1.53 Nucleated RBC % 0 Sodium 139 Potassium 4.0 Chloride 102 Carbon Dioxide 26.1 Anion Gap 11 BUN 18 Creatinine 0.82 Estim Creat Clear Calc 67.20 Est GFR (MDRD) Non-Af 88 BUN/Creatinine Ratio 22.1 H Glucose 100 H Calcium 9.4 Urine Color Yellow Urine Clarity Sl. Cloudy Urine pH 6.5 Ur Specific [place] 1.010 Urine Protein 15 H Urine Glucose (UA) Normal Urine Ketones Negative Urine Occult Blood 25 H Urine Nitrite Negative Urine Bilirubin Negative Urine Urobilinogen Normal Ur Leukocyte Esterase 500 H Urine RBC 0-5 SEEN Urine WBC 25-50 SEEN Ur Squamous Epith Cells 0 SEEN Urine Bacteria 3+ Urine Mucus 0 SEEN Radiography Diagnostic Testing: Clinical Impression(s) from Imaging Studies Chest X-Ray 04/12/25 15:30 IMPRESSION: 1. No evidence of acute cardiopulmonary pathology. 2. Small hiatal hernia. Reading Location: [place] [address] 1 view chest x-ray obtained interpreted by myself as no evidence of infiltrate or pneumothorax or acute disease process. Radiology in agreement felt there wasa small hiatal hernia. 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 Discharge Plan Triage Chief Complaint: General Illness ED Provider: Marlo Echevarria Dx/Rx/DC Orders Clinical Impression: Weakness, Acute UTI, Falls Prescriptions: No Action metronidazole 0.75 % cream 1 applic TOPICAL DAILY acetaminophen 500 MG tablet 1,000 mg PO PRN doxycycline hyclate 20 mg tablet 20 mg PO BID Patient Comments: aspirin [Rika Low Dose Aspirin] 81 mg Tablet,Delayed Release (Dr/Ec) 81 mg PO QHS multivitamin Tablet 1 tab PO DAILY pantoprazole 40 mg Tablet,Delayed Release (Dr/Ec) 40 mg PO DAILY lisinopril 5 mg tablet 5 mg PO DAILY d-mannose Powder 1 ea PO DAILY Rx Instructions: / teaspoon on cereal each am. Dupixent Pen 300 mg/2 mL pen injector 300 mg subcut .COMPLEX Rx Instructions: 300 mg subcutaneously EVERY 8 WEEKS; donepezil 5 mg tablet 10 mg PO DAILY trazodone 100 mg tablet 100 mg PO QHS furosemide 20 mg tablet 20 mg PO DAILY memantine 10 mg tablet 10 mg PO BID methenamine hippurate 1 gram tablet 1 g PO BID sertraline 25 mg tablet 25 mg PO DINNER triamcinolone acetonide 1 applic topical DAILY PRN (Reason: itching) melatonin 5 mg tablet 5 mg PO QHS NewFlora 10 billion cell capsule 80 mmu cells PO DAILY guaifenesin [Mucinex] 600 mg tablet extended release 12hr 600 mg PO BID Trulance 3 mg tablet 3 mg PO DAILY Patient Comments: ON 12/13/24 BACLOFEN SUPPOSITORY 1 supp OTHER DAILY fosfomycin tromethamine 3 gram packet 1 packet PO QODAY Qty: 1 0RF sulfamethoxazole-trimethoprim 800-160 mg tablet 1 tab PO BID hydrochlorothiazide 12.5 mg tablet 12.5 mg PO DAILY polyethylene glycol 3350 [Miralax] 17 gram/dose powder 4 g PO DAILY sertraline [Zoloft] 25 mg tablet 25 mg PO LUNCH Rx Instructions: lunch ipratropium bromide 21 mcg (0.03 %) spray,non-aerosol INTRANASAL Patient Comments: [NO ORIGINAL SIG] Primary Care Provider: Francisco Bahena Referrals: Francisco Bahena MD [Primary Care Provider] - Print Language: Tanzanian Disposition Disposition: Acute Care Hospital [facility] What to do if you have Problems For any increased pain, shortness of breath, bleeding, nausea or vomiting, chestpain, or any unexpected problems, contact your Primary Care Provider. Call [facility] ([phone]) or report tothe closest Emergency Room. Call 911 if necessary. 04/12/25 1875 Cosigner Signature (if applicable): CC: Dr. Francisco Bahena MD ~ Signed [place] [id number] History and physical note Author Monique Agarwal [facility] Note Date/Time April 12, 2025 5:19 pm [facility] Medical Records Department [address] [place] [address] H&P Exam - Hospitalist 04/12/25 1705 MR#: [id number] Acct: [id number] Name: JAVIER BOND Rep #:[id number] : 1940 84 From: Monique Agarwal MD PCP: Dr. Francisco Bahena MD Status:ADM IN Location: DC3 [id number] HPI - General General Date of Admission: 04/12/25 Date of Service: 04/12/25 Chief Complaint: Weakness and falls HPI Narrative JAVIER BOND, is a 84-year-old male history of BPH, GERD, dementia, hypertension, anxiety and depression who presented [facility] ED04/12/2025 with weakness and failure to thrive. He has had increased weakness for several weeks with 3 falls in the last 2 months. He saw his back surgeon who did his spinal fusion a month ago and was told he needs to undergo another surgery for April but he is not yet sure if he wants to undergo another surgery. Due to his weakness and failure to thrive he is concerned he needs alf placement and his primary care physician advised to go to the ED for admission for placement. In the ED temp 98.2, heart rate 64 blood pressure 145/43. Respiratory rate 16 with pulse ox 100% on room air. CBC with white blood cell count 4.5 and hemoglobin 13.1. BMP with no acute electrolyte abnormalities and a creatinine of 0.82. UA with 500 leuk esterase, 25-50 white blood cells and 3+ bacteria. Chest x-ray no acute process. Patient given Rocephin. Hospitalist contacted for admission for possible placement. Patient evaluated at bedside with family member present. He endorses chronic back pain for years with history of previous spinal fusion and notes that he has decreasedsensation and weakness in both of his legs right greater than left, he said he will attempt to take a step and will not be able to feel where he is stepping with his right leg and this is caused several falls. Confirmed multiple times with patient and family member that patient has had the symptoms at this currentseverity when he saw his spinal surgeon a month ago and that plan was for spinalfusion in April. Patient has chronic constipation, does not necessarily reportchanges in urination acutely but does have chronic history of urinary tract infections. Denies any nausea or vomiting, has chronic nasal drainage that caused him to frequently have to spit out phlegm but denies any acute change. Again patient confirmed that the sensation changes and weakness at this severityhave been present since he saw his spinal surgeon and he is scheduled for surgery but he does not feel like he can care for self at home anymore [facility] Medical History History of ESBL E. coli infection Anxiety Depression Kidney stones Kidney disease Former smoker Anxiety and depression HLD (hyperlipidemia) CKD (chronic kidney disease), stage II Dementia Left inguinal hernia Groin pain Inguinal hernia bilateral, non-recurrent Right inguinal hernia History of kidney stones History of hiatal hernia Abdominal pain BPH (benign prostatic hyperplasia) Arthritis History of back problems Hypertension Home Medications ?Medication ?Instructions ?Recorded ?Last Taken ?Type acetaminophen 500 mg tablet 1,000 mg PO PRN Pain 04/03 Unknown History doxycycline hyclate 20 mg tablet 20 mg PO BID infectio n 03/13/19 01/07/25 History metronidazole 0.75 % topical cream 1 applic topical DA [facility] skin health 07/16/19 01/07/25 History aspirin 81 mg tablet,delayed 81 mg PO QHS heart health 01/28/21 01/07/25 History release (Rika Low Dose Aspirin) multivitamin 1 tab PO DAILY vitamin 05/1801/07/25 History pantoprazole 40 mg tablet,delayed 40 mg PO DAILY reflu x 05/03/22 01/07/25 History release d-mannose 1 ea PO DAILY 09/24/2301/07 History dupilumab 300 mg/2 mL subcutaneous 300 mg subcut .COMP LUIS skin health 09/24/23 Unknown History pen injector (Dupixent) lisinopril 5 mg tablet 5 mg PO DAILY blood pressure 09/24/23 Unknown History Held on 04/12/25. Instructions: Ordered BACLOFEN SUPPOSITORY 1 supp OTHER DAILY CONSITPAT ION 01/08/25 Unknown History Lactobacillus acidophilus 10 80 mmu cells PO DAILY 01/07/25 History billion cell capsule (NewFlora) donepezil 5 mg tablet 10 mg PO DAILY 01/08/2512/25 History furosemide 20 mg tablet 20 mg PO DAILY 01/08/2512/25 History guaifenesin 600 mg tablet, 600 mg PO BID 01/08/2512/25 History extended release 12 hr (Mucinex) melatonin 5 mg tablet 5 mg PO QHS 01/08/25 5 History memantine 10 mg tablet 10 mg PO BID 01/08/25 History methenamine hippurate 1 gram tablet 1 g PO BID 5 01/07/25 History plecanatide 3 mg tablet (Trulance) 3 mg PO DAILY 01/08 Unknown History Held on 01/29/25. Instructions: reports being on hold 12/13/2024 sertraline 25 mg tablet 25 mg PO DINNER 01/08/25 History trazodone 100 mg tablet 100 mg PO QHS 01/08/2501/07 History triamcinolone acetonide 1 applic topical DAILY PRN i tching 01/08/25 01/07/25 History fosfomycin tromethamine 3 gram 1 packet PO QODAY 3 dos es #1 ea 01/10/25 Unknown Rx oral packet hydrochlorothiazide 12.5 mg tablet 12.5 mg PO DAILY Unknown History sulfamethoxazole 800 1 tab PO BID 01/29/25 Unknow n History mg-trimethoprim 160 mg tablet ipratropium bromide 21 mcg (0.03 intranasal 04/12/25 U nknown History %) nasal spray polyethylene glycol 3350 17 4 g PO DAILY 04/12/25 Unkn own History gram/dose oral powder (Miralax) sertraline 25 mg tablet (Zoloft) 25 mg PO LUNCH Unknown History Allergy/AdvReac Type Severity Reaction Status Date / Time Iodinated Contrast Media Allergy Hives Verified 04/12/25 14:35 (CONTRASTS) azelaic acid (From Finacea) AdvReac Rash Verified 04/12/25 14:35 levofloxacin AdvReac Rash Verified 04/12/25 14:35 meloxicam (From Mobic) AdvReac Nausea Verified 04/12/25 14:35 misoprostol (From Cytotec) AdvReac Nausea Verified 04/12/25 14:35 nabumetone (From Relafen) AdvReac Nausea Verified 04/12/25 14:35 NSAIDS (Non-Steroidal AdvReac Nausea Verified 04/12/25 14:35 Anti-Inflamma sulfamethoxazole (From AdvReac Nausea Verified 04/12/25 14:35 Bactrim) terbinafine AdvReac Nausea Verified 04/12/25 14:35 trimethoprim (From Bactrim) AdvReac Nausea Verified 04/12/25 14:35 valdecoxib (From Bextra) AdvReac Other Verified 04/12/25 14:35 Family History Father Colon cancer Mother Cancer lung Hypertension Brother Cancer Surgical History History of cholecystectomy History of left inguinal hernia repair (~07/18/19) History of right inguinal hernia repair History of colonoscopy (~02/2019) history repair left thumb History of hemorrhoidectomy History of bilateral cataract extraction history ureteral stent insertion History of laparoscopic cholecystectomy history lap hiatal hernia repair Hx of repair of right rotator cuff Hx of repair of left rotator cuff history exacorporeal shock wave lithrotripsy Social History household members: spouse Smoking Status: Former smoker alcohol intake: current alcohol intake frequency: a few times a month substance use type: does not use ROS ROS Narrative General: Denies fever/chills HENT: Denies headache, chronic nasal congestion, denies sore throat EYES: Has glasses Resp: Denies cough, denies shortness of breath Cardiac: Denies chest pain GI: Denies abdominal pain, chronic constipation, denies nausea/vomiting : Does not necessarily note any acute changes in urination Extremity: Denies swelling MSK: Weakness right lower extremity greater than left Neuro: Decreased sensation right lower extremity compared to left Heme: Denies any bleeding or bruising Skin: Denies rashes Psychiatric: No complaints voiced Vital Signs Vital Signs Vital Signs: 04/12/25 14:31 04/12/25 14:53 04/12/25 16:30 Temperature 98.2 F Temperature Source Oral Pulse Rate 64 57 L Respiratory Rate 16 20 H Respiratory Effort Normal Non-Labored Respiratory Pattern Normal Blood Pressure 145/43 H 135/58 H Blood Pressure Mean 77 83 Pulse Ox 100 100 Oxygen Delivery Method Room Air Room Air Weight Weight: 70.8 kg Body Mass Index (BMI) 23.7 Physical Exam Narrative General: Alert, oriented, no apparent distress HEENT: Atraumatic, normocephalic Eyes: Anicteric, normal conjunctiva, extraocular movements grossly intact Neck: Supple Respiratory: Clear to auscultation bilaterally, normal respiratory effort Cardiovascular: Regular rate and rhythm GI: Soft, nontender, nondistended Extremities: No edema Musculoskeletal: Patient moves bilateral lower extremities, left lower extremity5/5 and right lower extremity 4 out of 5, patellar reflexes 1+ bilaterally and no sustained clonus on ankle jerk Neuro: Decreased sensation right greater than left, is able to feel that he is being touched but minimally on the right side which has been going on Skin: No rashes appreciated Psych: Cooperative Results Lab / Micro Data 04/12/25 15:23 04/12/25 15:23 Labs: Laboratory Results - last 24 hr 04/12/25 15:23: WBC 4.5, RBC 4.08 L, Hgb 13.1, Hct 39.7 L, MCV 97.3 H, MCH 32.1 H, MCHC 33.0, RDW Std Deviation 45.0 H, RDW Coeff of Ezequiel 12.6, Plt Count 169, MPV 9.3, Immature Gran % (Auto) 0.200, Neut % (Auto) 54.9, Lymph % (Auto) 33.8, [place] % (Auto) 9.5, Eos % (Auto) 0.9, Baso % (Auto) 0.7, Absolute Neuts (auto) 2.5, Absolute Lymphs (auto) 1.53, Nucleated RBC % 0, Sodium 139, Potassium 4.0, Chloride 102, Carbon Dioxide 26.1, Anion Gap 11, BUN 18, Creatinine 0.82, Estim Creat Clear Calc 67.20, Est GFR (MDRD) Non-Af 88, BUN/Creatinine Ratio 22.1 H, Glucose 100 H, Calcium 9.4, Urine Color Yellow, Urine Clarity Sl. Cloudy, Urine pH 6.5, Ur Specific [place] 1.010, Urine Protein 15 H, Urine Glucose (UA) Normal, Urine Ketones Negative, Urine Occult Blood 25 H, Urine Nitrite Negative,Urine Bilirubin Negative, Urine Urobilinogen Normal, Ur Leukocyte Esterase 500 H, Urine RBC 0-5 SEEN, Urine WBC 25-50 SEEN, Ur Squamous Epith Cells 0 SEEN, Urine Bacteria 3+, Urine Mucus 0 SEEN Imaging Radiology Impression Chest X-Ray 04/12/25 15:30 IMPRESSION: 1. No evidence of acute cardiopulmonary pathology. 2. Small hiatal hernia. Reading Location: [place] [address] Assessment & Plan Assessment/Plan (1) Weakness: (2) UTI (urinary tract infection): PLAN: Plan #Weakness and falls -Patient does not feel he can care for himself at home any longer -Does have UA concerning for UTI, IV antibiotics as below -PT/OT -Case management consult - Will check TSH and B12 in the event there could be any additional factors contributing - Does have history of chronic back pain and spinal fusion and while patient somewhat generally weak does have right lower extremity weakness greater than left lower extremity weakness with decreased sensation more so on the right thanthe left, has already followed and discussed with his spinal surgeon initial plan was for surgery in April but presently he does not think he wants to go through surgery # Abnormal UA -Concern for infection causing or worsening #1 -Will continue empiric antibiotics while awaiting culture and sensitivity data #Hx spinal fusion - Reportedly saw his back surgeon and he may need further intervention to help with his sensation of weakness and this is scheduled for April -Patient unsure if he wants to go through with this at this time -PT/OT -Supportive care as above #Chronic BPH with obstruction -Continue home medications #GERD -Continue PPI #Depression/anxiety -Continue home medications #Hypertension - Continue home antihypertensives #Dementia -Supportive care -Continue home medications #DVT ppx: Lovenox subcu Monique Agarwal MD Charges/Coding Visit Charges Inpatient E&M: 36108 Init Hosp L2 04/12/25 0299 <Electronically signed by Monique Agarwal MD> Cosigner Signature (if applicable): CC: Dr. Francisco Bahena MD; Dr. Monique Agarwal MD~ Signed [facility] Work Phone: [phone] 573-290007-18-2025 History and physical note [facility] Medical Records Department [address] [place] [address] H&P Exam - Hospitalist 04/12/25 1705 MR#: [id number] Acct: [id number] Name: JAVIER BOND Rep #:[id number] : 1940 84 From: Monique Agarwal MD PCP: Dr. Francisco Bahena MD Status:ADM IN Location: [facility] [id number] HPI - General General Date of Admission: 04/12/25 Date of Service: 04/12/25 Chief Complaint: Weakness and falls HPI Narrative JAVIER BOND, is a 84-year-old male history of BPH, GERD, dementia, hypertension, anxiety and depression who presented [facility] ED04/12/2025 with weakness and failure to thrive. Hehas had increased weakness for several weeks with 3 falls in the last 2 months. He saw his back surgeon who did his spinal fusion a month ago and was told he needs to undergo another surgery for April but he is not yet sure if he wants to undergo another surgery. Due to his weakness and failure tothrive he is concerned he needs alf placement and his primary care physician advised to goto the ED for admission for placement. In the ED temp 98.2, heart rate 64 blood pressure 145/43. Respiratory rate 16 with pulse ox 100% on room air. CBC with white blood cell count 4.5 and [id number]. BMP with no acute electrolyte abnormalities and a creatinine of 0.82. UA with 500 leuk esterase, 25-50 white blood cells and 3+ bacteria. Chest x-ray no acute process. Patient given Rocephin. Hospitalist contacted for admission for possible placement. Patient evaluated at bedside with family member present. He endorses chronic back pain for years with history of previous spinal fusion and notes that he has decreasedsensation and weakness in both of his legs right greater than left, he said he will attempt to take a step and will not be able to feel where he is stepping with his right leg and this is caused several falls. Confirmed multiple times with patient and family member that patient has had the symptoms at this currentseverity when he saw his spinal surgeon a month ago and that plan was for spinalfusion in April. Patient has chronic constipation, does not necessarily reportchanges in urination acutely but does have chronic history of urinary tract infections. Denies any na usea or vomiting, has chronic nasal drainage that caused him to frequently have to spit out phlegm but denies any acute change. Again patient confirmed that the sensation changes and weakness at thisseverityhave been present since he saw his spinal surgeon and he is scheduled for surgery but he does not feel like he can care for self at home anymore [facility] Medical History History of ESBL E. coli infection Anxiety Depression Kidney stones Kidney disease Former smoker Anxiety and depression HLD (hyperlipidemia) CKD (chronic kidney disease), stage II Dementia Left inguinal hernia Groin pain Inguinal hernia bilateral, non-recurrent Right inguinal hernia History of kidney stones History of hiatal hernia Abdominal pain BPH (benign prostatic hyperplasia) Arthritis History of back problems Hypertension Home Medications ?Medication ?Instructions ?Recorded ?Last Taken ?Type acetaminophen 500 mg tablet 1,000 mg PO PRN Pain 04/03 Unknown History doxycycline hyclate 20 mg tablet 20 mg PO BID infectio n 03/13/19 01/07/25 History metronidazole 0.75 % topical cream 1 applic topical DA [facility] skin health 07/16/19 01/07/25 History aspirin 81 mg tablet,delayed 81 mg PO QHS heart health 01/28/21 01/07/25 History release (Rika Low Dose Aspirin) multivitamin 1 tab PO DAILY vitamin 05/1801/07/25 History pantoprazole 40 mg tablet,delayed 40 mg PO DAILY reflu x 05/03/22 01/07/25 History release d-mannose 1 ea PO DAILY 09/24/2301/07 History dupilumab 300 mg/2 mL subcutaneous 300 mg subcut .COMP [facility] skin health 09/24/23 Unknown History pen injector (Dupixent) lisinopril 5 mg tablet 5 mg PO DAILY blood pressure 09/24/23 Unknown History Held on 04/12/25. Instructions: Ordered BACLOFEN SUPPOSITORY 1 supp OTHER DAILY CONSITPAT ION 01/08/25 Unknown History Lactobacillus acidophilus 10 80 mmu cells PO DAILY 01/07/25 History billion cell capsule (NewFlora) donepezil 5 mg tablet 10 mg PO DAILY 01/08/2512/25 History furosemide 20 mg tablet 20 mg PO DAILY 01/08/2512/25 History guaifenesin 600 mg tablet, 600 mg PO BID 01/08/2512/25 History extended release 12 hr (Mucinex) melatonin 5 mg tablet 5 mg PO QHS 01/08/25 5 History memantine 10 mg tablet 10 mg PO BID 01/08/25 History methenamine hippurate 1 gram tablet 1 g PO BID 5 01/07/25 History plecanatide 3 mg tablet (Trulance) 3 mg PO DAILY 01/08 Unknown History Held on 01/29/25. Instructions: reports being on hold 12/13/2024 sertraline 25 mg tablet 25 mg PO DINNER 01/08/25 History trazodone 100 mg tablet 100 mg PO QHS 01/08/2501/07 History triamcinolone acetonide 1 applic topical DAILY PRN i tching 01/08/25 01/07/25 History fosfomycin tromethamine 3 gram 1 packet PO QODAY 3 dos es #1 ea 01/10/25 Unknown Rx oral packet hydrochlorothiazide 12.5 mg tablet 12.5 mg PO DAILY Unknown History sulfamethoxazole 800 1 tab PO BID 01/29/25 Unknow n History mg-trimethoprim 160 mg tablet ipratropium bromide 21 mcg (0.03 intranasal 04/12/25 U nknown History %) nasal spray polyethylene glycol 3350 17 4 g PO DAILY 04/12/25 Unkn own History gram/dose oral powder (Miralax) sertraline 25 mg tablet (Zoloft) 25 mg PO LUNCH Unknown History Allergy/AdvReac Type Severity Reaction Status Date / Time Iodinated Contrast Media Allergy Hives Verified 04/12/25 14:35 (CONTRASTS) azelaic acid (From Finacea) AdvReac Rash Verified 04/12/25 14:35 levofloxacin AdvReac Rash Verified 04/12/25 14:35 meloxicam (From Mobic) AdvReac Nausea Verified 04/12/25 14:35 misoprostol (From Cytotec) AdvReac Nausea Verified 04/12/25 14:35 nabumetone (From Relafen) AdvReac Nausea Verified 04/12/25 14:35 NSAIDS (Non-Steroidal AdvReac Nausea Verified 04/12/25 14:35 Anti-Inflamma sulfamethoxazole (From AdvReac Nausea Verified 04/12/25 14:35 Bactrim) terbinafine AdvReac Nausea Verified 04/12/25 14:35 trimethoprim (From Bactrim) AdvReac Nausea Verified 04/12/25 14:35 valdecoxib (From Bextra) AdvReac Other Verified 04/12/25 14:35 Family History Father Colon cancer Mother Cancer lung Hypertension Brother Cancer Surgical History History of cholecystectomy History of left inguinal hernia repair (~07/18/19) History of right inguinal hernia repair History of colonoscopy (~02/2019) history repair left thumb History of hemorrhoidectomy History of bilateral cataract extraction history ureteral stent insertion History of laparoscopic cholecystectomy history lap hiatal hernia repair Hx of repair of right rotator cuff Hx of repair of left rotator cuff history exacorporeal shock wave lithrotripsy Social History household members: spouse Smoking Status: Former smoker alcohol intake: current alcohol intake frequency: a few times a month substance use type: does not use ROS ROS Narrative General: Denies fever/chills HENT: Denies headache, chronic nasal congestion, denies sore throat EYES: Has glasses Resp: Denies cough, denies shortness of breath Cardiac: Denies chest pain GI: Denies abdominal pain, chronic constipation, denies nausea/vomiting : Does not necessarily note any acute changes in urination Extremity: Denies swelling MSK: Weakness right lower extremity greater than left Neuro: Decreased sensation right lower extremity compared to left Heme: Denies any bleeding or bruising Skin: Denies rashes Psychiatric: No complaints voiced Vital Signs Vital Signs Vital Signs: 04/12/25 14:31 04/12/25 14:53 04/12/25 16:30 Temperature 98.2 F Temperature Source Oral Pulse Rate 64 57 L Respiratory Rate 16 20 H Respiratory Effort Normal Non-Labored Respiratory Pattern Normal Blood Pressure 145/43 H 135/58 H Blood Pressure Mean 77 83 Pulse Ox 100 100 Oxygen Delivery Method Room Air Room Air Weight Weight: 70.8 kg Body Mass Index (BMI) 23.7 Physical Exam Narrative General: Alert, oriented, no apparent distress HEENT: Atraumatic, normocephalic Eyes: Anicteric, normal conjunctiva, extraocular movements grossly intact Neck: Supple Respiratory: Clear to auscultation bilaterally, normal respiratory effort Cardiovascular: Regular rate and rhythm GI: Soft, nontender, nondistended Extremities: No edema Musculoskeletal: Patient moves bilateral lower extremities, left lower extremity5/5 and right lowerextremity 4 out of 5, patellar reflexes 1+ bilaterally and no sustained clonus on ankle jerk Neuro: Decreased sensation right greater than left, is able to feel that he is being touched but minimally on the right side which has been going on Skin: No rashes appreciated Psych: Cooperative Results Lab / Micro Data 04/12/25 15:23 04/12/25 15:23 Labs: Laboratory Results - last 24 hr 04/12/25 15:23: WBC 4.5, RBC 4.08 L, Hgb 13.1, Hct 39.7 L, MCV 97.3 H, MCH 32.1 H, MCHC 33.0, RDW Std Deviation 45.0 H, RDW Coeff of Ezequiel 12.6, Plt Count 169, MPV 9.3, Immature Gran % (Auto) 0.200, Neut % (Auto) 54.9, Lymph % (Auto) 33.8, [place] % (Auto) 9.5, Eos % (Auto) 0.9, Baso % (Auto) 0.7, Absolute Neuts (auto) 2.5, Absolute Lymphs (auto) 1.53, Nucleated RBC % 0, Sodium 139, Potassium 4.0, Chloride 102, Carbon Dioxide 26.1, Anion Gap 11, BUN 18, Creatinine 0.82, Estim Creat Clear Calc 67.20,Est GFR (MDRD) Non-Af 88, BUN/Creatinine Ratio 22.1 H, Glucose 100 H, Calcium 9.4, Urine Color Yellow, Urine Clarity Sl. Cloudy, Urine pH 6.5, Ur Specific [place] 1.010, Urine Protein 15 H, Urine Glucose (UA) Normal, Urine Ketones Negative, Urine Occult Blood 25 H, Urine Nitrite Negative,Urine Bilirubin Negative, Urine Urobilinogen Normal, Ur Leukocyte Esterase 500 H, Urine RBC 0-5 SEEN, Urine WBC 25-50 SEEN, Ur Squamous Epith Cells 0 SEEN, Urine Bacteria 3+, Urine Mucus 0 SEEN Imaging Radiology Impression Chest X-Ray 04/12/25 15:30 IMPRESSION: 1. No evidence of acute cardiopulmonary pathology. 2. Small hiatal hernia. Reading Location: [place] [address] Assessment & Plan Assessment/Plan (1) Weakness: (2) UTI (urinary tract infection): PLAN: Plan #Weakness and falls -Patient does not feel he can care for himself at home any longer -Does have UA concerning for UTI, IV antibiotics as below -PT/OT -Case management consult - Will check TSH and B12 in the event there could be any additional factors contributing - Does have history of chronic back pain and spinal fusion and while patient somewhat generally weak does have right lower extremity weakness greater than left lower extremity weakness with decreasedsensation more so on the right thanthe left, has already followed and discussed with his spinal surgeon initial plan was for surgery in April but presently he does not think he wants to go through surgery # Abnormal UA -Concern for infection causing or worsening #1 -Will continue empiric antibiotics while awaiting culture and sensitivity data #Hx spinal fusion - Reportedly saw his back surgeon and he may need further intervention to help with his sensation of weakness and this is scheduled for April -Patient unsure if he wants to go through with this at this time -PT/OT -Supportive care as above #Chronic BPH with obstruction -Continue home medications #GERD -Continue PPI #Depression/anxiety -Continue home medications #Hypertension - Continue home antihypertensives #Dementia -Supportive care -Continue home medications #DVT ppx: Lovenox subcu Monique Agarwal MD Charges/Coding Visit Charges Inpatient E&M: 59996 Init Hosp L2 04/12/25 1719 Cosigner Signature (if applicable): CC: Dr. Francisco Bahena MD; Dr. Monique Agarwal MD~ Signed [facility]07-18-2025 Radiology Diagnostic study note [facility] Imaging Services [address], [place] [id number] Chest 1 View (Portable) MR#: [id number] Acct: [id number] Name: JAVIER BOND Rep #: [id number] : 1940 M 84 From: Javan Jaramillo MD PCP: Dr. Francisco Bahena MD Status: PRE ER Study:Chest 1 View (Portable) Date of Exam: 04/12/25 Exam# [id number] Ordering Dr: Elana Echevarria DO PROCEDURE: CHEST 1 VIEW (PORTABLE) 04/12/2025 REASON FOR EXAM: WEAKNESS TECHNIQUE: Frontal view of the chest. COMPARISON: Portable chest, 09/24/2023 FINDINGS: The lungs are clear. The heart size is normal. There is calcific vascular disease of the thoracic aorta. There is a small hiatal hernia. 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 RAD/Chest 1 View (Portable) IMPRESSION: 1. No evidence of acute cardiopulmonary pathology. 2. Small hiatal hernia. Reading Location: [place] [address] CC: Dr. Francisco Bahena MD; Dr. Marlo Echevarria DO ~ 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: Signed [facility] Work Phone: [phone] 297-393907-18-2025 Telephone encounter Note* Telephone Encounter - Dorothy Hernandez RN - 04/12/2025 12:10 PM EDT Patient called of provider recommendations. voices understanding. states that if this is procedure then this is what she will have to do. Dorothy Hernandez RN [facility]07-18-2025 Miscellaneous Notes* Telephone Encounter - Dorothy Hernandez RN - 04/12/2025 12:10 PM EDT Patient called of provider recommendations. voices understanding. states that if this is procedure then this is what she will have to do. Dorothy Hernandez RN * Telephone Encounter - Francisco Bahena MD - 04/12/2025 11:57 AM EDT Have contact a squad to take him to the ER. He will need admitted for placement into a skillednursing care unit. Under medicare rules a patient needs to be admitted for three days prior to admission to a long care facility. * Telephone Encounter - Dorothy Hernandez RN - 04/12/2025 9:37 AM EDT Patient's calls and states that patient is unable to walk do to weakness. Patient barely can stand to urinate. Patient is not wanting to do treatment such as surgery. reports that she cannot get patient out of the house. Patient is wanting to go to alf. asking what are the next steps to help with this? Please review and advise, Dorothy Hernandez RN [facility] Telephone encounter Note * Telephone Encounter - Francisco Bahena MD - 04/12/2025 11:57 AM EDT Have contact a squad to take him to the ER. He will need admitted for placement into a skillednursing care unit. Under medicare rules a patient needs to be admitted for three days prior to admission to a long care facility. [facility]07-18-2025 Telephone encounter Note* Telephone Encounter - Dorothy Hernandez RN - 04/12/2025 9:37 AM EDT Patient's calls and states that patient is unable to walk do to weakness. Patient barely can stand to urinate. Patient is not wanting to do treatment such as surgery. reports that she cannot get patient out of the house. Patient is wanting to go to alf. asking what are the next steps to help with this? Please review and advise, Dorothy Hernandez RN [facility]07-17-2025 Telephone encounter Note* Telephone Encounter - Any Lainez LPN - 04/11/2025 1:58 PM EDT Patient had an appointment with Sara Hooper on 04/05/25. Any Lainez LPN [facility]07-17-2025 Miscellaneous Notes* Telephone Encounter - Any Lainez LPN - 04/11/2025 1:58 PM EDT Patient had an appointment with Sara Hooper on 04/05/25. Any Lainez LPN * Telephone Encounter - Dorothy Hernandez RN - 04/11/2025 9:56 AM EDT The patient has been identified by name and date of : Yes Caregiver verified no other encounters exist for this prescription request: Yes Caregiver confirmed with patient/requestor that no other refills are due, in the near future, with this provider at this time: Yes The last office visit in the department: 09/21/2024 Does the patient have a future office visit with this provider/department: Yes 08/02/2025 Requested Prescriptions Pending Prescriptions Disp Refills memantine (NAMENDA) 10 mg tablet Sig: Take 1 tablet by mouth two times a day. Per Neuro. Dr. Murali Hernandez RN April 11, 2025 9:58 AM [facility] Telephone encounter Note * Telephone Encounter - Dorothy Hernandez RN - 04/11/2025 9:58 AM EDT Refill request sent to Dr. Yu office in separate encounter. Dorothy Hernandez RN [facility]07-17-2025 Miscellaneous Notes* Telephone Encounter - Dorothy Hernandez RN - 04/11/2025 9:58 AM EDT Refill request sent to Dr. Yu office in separate encounter. Dorothy Hernandez RN [facility] Telephone encounter Note * Telephone Encounter - Dorothy Hernandez RN - 04/11/2025 9:56 AM EDT The patient has been identified by name and date of : Yes Caregiver verified no other encounters exist for this prescription request: Yes Caregiver confirmed with patient/requestor that no other refills are due, in the near future, with this provider at this time: Yes The last office visit in the department: 09/21/2024 Does the patient have a future office visit with this provider/department: Yes 08/02/2025 Requested Prescriptions Pending Prescriptions Disp Refills memantine (NAMENDA) 10 mg tablet Sig: Take 1 tablet by mouth two times a day. Per Neuro. Dr. Murali Hernandez RN April 11, 2025 9:58 AM [facility]07-16-2025 Telephone encounter Note* Telephone Encounter - Lily Elias RN - 04/10/2025 12:56 PM EDT Neuro SPINE CARE COORDINATION QUICK NOTE Spoke with spouse and answered all questions [facility]07-16-2025 Miscellaneous Notes* Telephone Encounter - Lily Elias RN - 04/10/2025 12:56 PM EDT Neuro SPINE CARE COORDINATION QUICK NOTE Spoke with spouse and answered all questions * Telephone Encounter - Dee Clements - 04/08/2025 4:13 PM EDT Call received for Aris Baeza MD regarding Javier Bond. Caller: self Patient Identified by Name and : Javier Bond 1940 Reason for Call: General - Pt's has several questions regarding husbands surgery coming up next month Is there any additional information the provider should know? No Last Office Visit: 03/28/2025 Next scheduled appointment: Visit date not found Best number to reach caller: [phone] Best time to reach caller: Any Is it OK to leave a detailed voice message? Yes Dee Clements [facility] Telephone encounter Note * Telephone Encounter - Dee Clements - 04/08/2025 4:13 PM EDT Call received for Aris Baeza MD regarding Javier Bond. Caller: self Patient Identified by Name and : Javier Bond 1940 Reason for Call: General - Pt's has several questions regarding husbands surgery coming up next month Is there any additional information the provider should know? No Last Office Visit: 03/28/2025 Next scheduled appointment: Visit date not found Best number to reach caller: [phone] Best time to reach caller: Any Is it OK to leave a detailed voice message? Yes Dee Clements [facility]07-11-2025 History of Present illness Narrative* Sara Hooper APRN.TIME SIGNAL WIRER - 04/05/2025 12:30 PM EDT Images from the original note were not included. [facility] Follow-up Visit Follow-up note April 05, 2025 HPI: Mr. Bond presents today for a follow-up visit. Per his previous visit with Dr. Yu on 09/21/24: ASSESSMENT/PLAN: 1. Dementia without behavioral disturbance (HCC) - ICD9: 294.20, ICD10: F03.90 Patient with cognitive decline as above, that given history, suspect was present prior to episode of encephalopathy secondary to sepsis as above (sepsis a further provoking factor at that time). Diagnosis further supported by history, exam, MOCA and findings on MRI suggesting general cortical atrophy including involvement of bilateral temp lobes. Note that I did not identify any evidence of Parkinsonism on his examination today. As for cause of dementia, metabolic workup complete and unremarkable, no evidence of vascular etiology, and no s/s to suggest NPH. History of depression but stable per history. Suspect neurodegenerative type. Pt not wanting further imaging (I.e. quantitative MRI), not wanting evaluation by [facility] for [facility]. Tolerating current dose of Aricept 10mg daily. D/wpt and further options. They agree with trying Namenda which will be started at 5mg daily and titrated up weekly by 5mg to goal of 10mg BID. SE and ADRs d/w pt. Pt will follow up in 3-4 months or sooner prn. Dx, etiology, treatment and prognosis d/w both pt and . Presents with his Peter. Feels memory has progressively worsened. Feels this is rapid. Has to write everything down or have his write things down for him. Cannot recall people who he went to school with. His will tell him then five minutes later he forgets. Couldn't remember his father's name. No difficulty remembering scenery or how to get to places. His helps him with his medications. Does do it together with his . His watches how hetakes medications. Asks his the day of the week and makes sure he has correct day on pill box. Not driving. Not leaving stove on, water running, door open. No wandering at night. If he gets up at night he goes back to bed. No hallucinations. Has had "very real" dreams. Feels like he is in the middle of them. Some can be him and good friends but other times can be trying to do things. Does not think he acts out dreams. Was having nightmares but states doctor put him on trazodone which helped nightmares. Was becoming slightly irritated/ "being nasty" but now taking full tablet of Zoloft which has helped. Still taking Aricept 10mg at breakfast. Taking Namenda 10mg with breakfast and dinner. No lightheadedness or dizziness. No falls. Will be having surgery on 05/17 to have surgery on RLE. Will be doing PT after surgery at [facility]. MOCA 04/05/25 Visuospatial/exec (5-5) correct clock hands and outline (2/5) Naming (0-3) (3/3) Memory Words, up to 2 trials: Face, Velvet, Sabianist, Livier, Red (no points) 4/5 first try, 5/5 second try Attention forwards: 2 1 8 5 4 (0-1) (09/26) Attention backwards: 7 4 2 (0-1) (09/26) Tap for the "A": F B A C M N A A J K L B A F A K D E A A A J A M O F A A B (1 point if 0 or 1 error) (09/26) Serial subtraction by 7: [id number] (3 points for correct 4 or 5; 2 points for 2 or 3 correct; 1 point for 1 correct) [id number] (3/3) Language: repeat: I only know that Sebastian is the one to help today (0-1) (09/26) Language: repeat: The cat always hid under the couch when dogs were in the room (0-1) (09/26) Fluency: max words beginning with the letter F (1 point if 11 or more words) lllll lllll ll (09/26) Abstraction: practice banana-orange=fruit. Then train-bicycle (1) AND watch- ruler (1) total: (2) (2/2) Delayed recall: recall words: face, velvet, latter-day, livier, red (0-5) got red with cat clue (0/5) Orientation: date(1), month(1), year(1), day(1), place(1), city(1) max 6 points (3/6) Level of education: add 1 if did not receive more than a HS education +1 Total Score max 30 or 31 (19) PAST MEDICAL HISTORY Diagnosis Date Abnormal SPEP 12/14/2022 Advance directive discussed with patient 10/04/2022 Discussed 09/2022 Anemia, chronic disease 08/25/2023 Hg runs 10-12.7 Arthritis Benign intracranial hypertension 11/30/2002 Bilateral carotid artery stenosis 12/03/2020 US 08/2020: Rt 20-40%, Lt 0-20% 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 Cervical spondylosis without myelopathy 06/27/2023 Chronic constipation 12/03/2020 Chronic LLQ pain 02/23/2024 A constant dull ache: w/u was neg Compression fracture of third lumbar vertebra (HCC) 11/05/2019 Degenerative lumbar spinal stenosis 12/15/2020 Dementia without behavioral disturbance (HCC) 12/23/2023 Dementia without behavioral disturbance (HCC) 12/23/202310/2023: w/u ok, patient initially declined med management but changed his mind and stated Aricpet mid 11/2023. 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/24/2022 S/p removal 08/2022 Essential hypertension, benign Essential tremor 11/21/2023 Family history of malignant neoplasm of gastrointestinal tract GERD (gastroesophageal reflux disease) 03/25/2009 Hiatal hernia 06/09/2022 History of compression fracture of spine 11/05/2019 History of recurrent UTIs 01/21/2025 Hypercalciuria, idiopathic 02/11/2020 Hypertrophy of prostate without urinary obstruction and other lower urinary tract symptoms (LUTS) Ilioinguinal neuralgia of left side 09/27/2019 Internal hemorrhoids without mention of complication Iron deficiency anemia 07/23/[address] 10/04/2022 DPA: Peter Lumbar degenerative disc disease 09/14/2012 Lumbar radiculopathy 07/03/2020 Medicare annual wellness visit, subsequent 09/10/2021 Medicare Part B: Not able to find Last done: 09/10/2021 Memory deficits 11/21/202310/2023: w/u ok, patient declined med management Nephrolithiasis 07/04/2007 Neuropathy - (NOS) 08/30/2024 NCS: 08/2024 Oropharyngeal dysphagia 12/25/2020 Osteoporosis 01/28/2020 Other specified anemias 03/16/2022 Acute blood loss 11/2020 (post surgery) Pain in both hands 06/21/2024 Rheum factor+(05/2024) Peripheral edema 05/21/2022 Primary osteoarthritis of both first carpometacarpal joints 05/04/2018 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 09/09/2015 Rosacea 09/09/2015 S/P lumbar spinal fusion 12/15/2020 Sepsis due to Gram-negative organism with septic shock (HCC) 12/17/2020 Proteus mirabilis UTI Situational anxiety 06/27/2019 Situational depression 02/27/2021 Spondylosis of lumbar region without myelopathy or radiculopathy 03/10/2018 Thyroid nodule 12/03/[address] Zacarias Unstable gait 05/21/2021 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 05/11/2021 Weakness of both lower extremities 07/04/2024 PAST SURGICAL HISTORY Procedure Laterality Date ARTHRP INTERCARPAL/CARP/MTCRPL JT INTERPOSITION Left 05/24/2018 Left thumb CMC arthroplasty with LRTI and MCP pinning of left thumb COLONOSCOPY FLX DX W/COLLJ SPEC WHEN PFRMD 07/17/082012 COLONOSCOPY FLX DX W/COLLJ SPEC WHEN PFRMD [facility] 02/20/2021 stent removal EGD TRANSORAL BIOPSY SINGLE/MULTIPLE 12/26/2008 ESOPHAGOGASTRODUODENOSCOPY TRANSORAL DIAGNOSTIC 03/18/2020 EGD EXCISION OF CYST squamous cell on head EYE SURGERY HX HERNIA REPAIR HX LAP, REVISION DEMETRIO FUNDOPLASTY 03/11/2009 hiatal hernia LAPAROSCOPY SURG CHOLECYSTECTOMY 03/11/2009 LITHOTRIPSY XTRCORP SHOCK WAVE 1982,12/07/2006, 2012 NEPHROLITHOTOMY REMOVAL STAGE 1 Right 11/28/2006, 2011 (R) ureteroscopic OPEN REPAIR OF ROTATOR CUFF ACUTE Right 12/06/2002 OPEN REPAIR OF ROTATOR CUFF ACUTE Left 08/26/2004 PAST SURGICAL HISTORY OF 08/2022 re-moval of esophageal diverticulum. PERIPHERAL NERVE BLOCK (MOD 59) Bilateral 11/01/2016, 03/28/2018 bilateral lumbar facet medial branch nerve block (l4-5, L5-S1) REMOVAL OF HEMORRHOID CLOT 06/2017 SKIN BIOPSY HX SPINAL FUSION,ANT,EA ADNL LEVEL 2001 TONSILLECTOMY HX Childhood TRANSURETHRAL ELEC-SURG PROSTATECTOM 01/14/2023 XCAPSL CTRC RMVL INSJ IO LENS PROSTH W/O ECP Bilateral 08/25/2016 Current Outpatient Medications on File Prior to Visit Medication Sig baclofen suppository 10 mg (CPD) 1 suppository by RECTAL route once daily. Unwrap and insert as directed. Methenamine Hippurate (HIPREX) 1 gram tablet Take 1 tablet by mouth two times a day. Ipratropium [place] (ATROVENT) 21 mcg (0.03 %) nasal spray Use 1-2 sprays in the nose three times aday. pantoprazole DR (PROTONIX) 40 mg tablet Take 1 tablet by mouth once daily. melatonin 5 mg tablet Take 1 tablet by mouth daily at bedtime. guaiFENesin (MUCINEX) 600 mg 12 hr tablet Take 2 tablets by mouth two times a day as needed for cold/allergy symptoms. furosemide (LASIX) 20 mg tablet Take 1 tablet by mouth once daily. traZODone (DESYREL) 100 mg tablet Take 1 tablet by mouth daily at bedtime. memantine (NAMENDA) 10 mg tablet Per Neuro. Dr. Yu sertraline (ZOLOFT) 25 mg tablet Take 1.5 tablets by mouth once daily. polyethylene glycol 3350 (MIRALAX) 17 gram/dose powder Take 17 g by mouth once daily. Dissolve dosein 4 - 8 ounces of liquid and take as directed. metroNIDAZOLE 0.75 % cream Apply to affected area once daily. hydroCHLOROthiazide 12.5 mg tablet Take 1 tablet by mouth once daily. donepezil (ARICEPT) 5 mg tablet Take 2 tablets by mouth daily at bedtime. lisinopril (ZESTRIL) 5 mg tablet Take 1 tablet by mouth once daily. (Patient not taking: Reported on 12/31/2024) dupilumab 300 mg/2 mL subcutaneous syringe ([employer]) Inject 2 mL subcutaneously every 4 weeks. PerDerm: Dr. Mariee Lactobacillus acidophilus (PROBIOTIC ACIDOPHILUS ORAL) Take 1 capsule by mouth once daily. d-mannose powd Take 1/2 teaspoon by mouth once daily. triamcinolone acetonide (KENALOG) 0.1 % cream Apply 1 application to affected area as directed. doxycycline 20 mg tablet Take 20 mg by mouth twice daily. multivit-min/iron/folic acid/K (ADULTS MULTIVITAMIN ORAL) Take 1 tablet by mouth once daily. MEDICAL SUPPLY KAFO for right lower extremity. acetaminophen (TYLENOL) 500 mg tablet Take 2 tablets by mouth every 8 hours as needed for Pain or Fever. aspirin 81 mg chewable tablet Take 1 tablet by mouth once daily. No current facility-administered medications on file prior to visit. Social History Tobacco Use Smoking status: Former Current packs/day: 0.00 Types: Cigarettes Quit date: 06/24/1963 Years since quittin.8 Smokeless tobacco: Never Tobacco comments: quit in his 20's - smoked socially while in college Vaping Use Vaping status: Never Used Substance Use Topics Alcohol use: Yes Comment: 1-2 drinks in A MONTH Drug use: No ALLERGIES Allergen Reactions Finacea [Azelaic Ac* Rash Cardura [Doxazosin * Unknown Cytotec [Misoprosto* Unknown Fosamax [Alendronat* Vomiting heartburn, vomiting Gabapentin Mental Status Change Ketoconazole Unknown Nsaids (Non-Steroid* Unknown GI UPSET Relafen [Nabumetone] Unknown Terbinafine GI Upset stomachache Review of Systems: See HPI. Physical Exam: 04/05/25 1223 BP: 131/58 BP Site: Right Arm BP Position: Sitting BP Cuff Size: Regular Adult Pulse: (!) 58 SpO2: 98% Patient is alert and in no distress. Dress is appropriate. Mood is appropriate Breathing appears regular and unstressed Neurologic examination: See MOCA above. CN: Pupils equal and reactive to light, extraocular movements intact with no nystagmus, face is symmetric with no facial droop, facial sensation intact bilaterally to light touch. V1-3, hearing intact bilaterally, symmetric evaluation of the soft palate, tongue is midline with no deviation, shoulder shrug is symmetric. Motor Examination: Right Upper Extremity: (of 5) Left Upper Extremity: (of 5) Shoulder Abduction: Deltoid (Ax/C5) 5 Shoulder Abduction 5 Elbow Flexion: Biceps (MC/R and C5/6) 5 Elbow Flexion 5 Elbow Extension: Triceps (R/C7) 5 Elbow Extension 5 Wrist Flexion (M/U and C6/7) 5 Wrist Flexion 5 Wrist Extension (R/C6) 5 Wrist Extension 5 Finger Abduction (U/T1) 5 Finger Abduction 5 Grainer Machine 5 Grainer Machine 5 Right Lower Extremity: (of 5) Left Lower Extremity: (of 5) Hip Flexion: Iliopsoas (F and L1/2) 2 Hip Flexion 5 Knee Extension: Quadriceps (F and L3/4) 5 Knee Extension 5 Knee Flexion: Hamstrings (S/S1) 5 Knee Flexion 5 Dorsiflexion: Tibialis Anterior (DP and L4/5) 4+ Dorsiflexion 5 Plantarflexion: Gastrocnemius/Soleus (T and S1/2) 5 Plantarflexion 5 Reflexes: Right Extremities Left Extremities: Triceps (C7-8R) 2 Triceps 2 Biceps (C5-6MC) 2 Biceps 2 Brachioradialis (C5-6R) 2 Brachioradialis 2 Patellar (L3-4F) 2 Patellar 2 Achilles (S1-2S) 2 Achilles 2 Bui's: negative bilaterally Sensory Intact to light touch upper and lower extremities bilaterally Coordination: No dysmetria on finger to nose. No tremors noted. No drift seen. Presents in WC (bilateral knee brace) Labs/studies: Latest Ref [facility] 12/12/2024 WBC 3.70 - 11.00 k/uL 3.83 RBC 4.20 - 6.00 m/uL 3.91 (L) Hemoglobin 13.0 - 17.0 g/dL 12.5 (L) Hematocrit 39.0 - 51.0 % 38.7 (L) MCV 80.0 - 100.0 fL 99.0 MCH 26.0 - 34.0 pg 32.0 MCHC 30.5 - 36.0 g/dL 32.3 RDW-CV 11.5 - 15.0 % 13.9 Platelet Count 150 - 400 k/uL 188 MPV 9.0 - 12.7 fL 9.5 Neut% % 53.3 Abs Neut (ANC) 1.45 - 7.50 k/uL 2.04 Lymph% % 36.0 Abs Lymph 1.00 - 4.00 k/uL 1.38 [place]% % 9.1 Abs [place] <0.87 k/uL 0.35 Eosin% % 0.8 Abs Eosin <0.46 k/uL 0.03 Baso% % 0.5 Abs Baso <0.11 k/uL <0.03 Immature Gran % % 0.3 IMMATURE GRANS (ABS) <0.10 k/uL <0.03 NRBC /100 WBC 0.0 Absolute nRBC <0.01 k/uL <0.01 DTYPE Auto Protein, Total 6.3 - 8.0 g/dL 6.8 Albumin 3.9 - 4.9 g/dL 4.4 Calcium 8.5 - 10.2 mg/dL 9.6 Bilirubin, Total 0.2 - 1.3 mg/dL 0.6 Alkaline Phosphatase 38 - 113 U/L 69 AST 14 - 40 U/L 19 ALT 10 - 54 U/L 20 Glucose 74 - 99 mg/dL 87 BUN 9 - 24 mg/dL 24 Creatinine 0.73 - 1.22 mg/dL 0.95 Sodium 136 - 144 mmol/L 139 Potassium 3.7 - 5.1 mmol/L 4.4 Chloride 98 - 107 mmol/L 102 CO2 22 - 30 mmol/L 27 Anion Gap 8 - 15 mmol/L 10 eGFR >=60 mL/min/1.73m 80 Legend: (L) Low MRI Report MRI BRAIN WO IVCON Exam End: 11/25/2023 11:19 AM (Final result) Narrative: * * *Final Report* * * DATE OF EXAM: Nov 25 2023 11:19AM [facility] 0294 - MRI BRAIN WO IVCON / PROCEDURE REASON: multiple diagnoses * * * * Physician Interpretation * * * * EXAMINATION: MRI BRAIN WO IVCON CLINICAL HISTORY: Memory deficits. Dementia without behavioral disturbance (HCC) TECHNIQUE: Routine noncontrast MRI protocol including diffusion images. MQ: [id number] COMPARISON: None. RESULT: Acute Change: There is no evidence of restricted diffusion to suggest an acute infarct. Hemorrhage: Prior microhemorrhage in the right occipital lobe.. Mass Lesion/ Mass Effect: No evidence of an intracranial mass or extra-axial fluid collection. No significant mass effect. Chronic Change: Patchy region of gliosis in the right parietal lobe, possibly remote insult. Scattered patchy areas of increased T2 and FLAIR signal are present in the supratentorial white matter which is a nonspecific finding but likely represents mild chronic microvascular ischemia. Parenchyma: There is mild to moderate central predominant volume loss. Scattered dilatated perivascular spaces. Ventricles: Ventriculomegaly corresponds to the degree of parenchymal volume loss. Small cavum septum lucidum. Skull Base: Hypothalamic and pituitary region are grossly normal. Craniocervical junction is normal. No significant marrow replacement process. Vasculature: Major intracranial arterial structures, and dural venous sinuses show typical flow void, suggesting patency by spin echo criteria. Other: Mild left sphenoid sinus mucosal thickening, visualized paranasal sinuses otherwise are clear. Mastoid air cells are clear. Lens replacement bilaterally. Impression: IMPRESSION: No evidence of an intracranial acute process. Chronic changes as mentioned. 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: BRIAN Transcribe Date/Time: Nov 25 2023 11:43A Dictated by : JASON NARAYAN MD This examination was interpreted and the report reviewed and electronically signed by: JASON NARAYAN MD on Nov 25 2023 11:47AM EST Assessment/Plan: F03.90 Dementia without behavioral disturbance (HCC) (primary encounter diagnosis) Comment: Pt following with neurology for history of cognitive decline with symptoms suggestive of progressive neurodegenerative ds. At time of appt today he reports sx have progressively worsened. Hedenies hallucinations, behavior changes (noting pt currently taking Zoloft which has helped with mood), or dangerous behaviors. He resides with his who assists with medications and he does not drive. He does note vivid dreams but reports no recent nightmares. MOCA updated today with score of 19/30. Mostly unchanged from that at time of previous appointment. He continues to take Namenda 10mg BID as well as Aricept 10mg once daily. Discussed that should nightmares recur would consider weaning down and off Aricept to determine if there is improvement in sx. Otherwise will continue medications as previously prescribed. No orders found for this visit on 04/05/25. Sara Hooper APRN.RHODA I spent a total of 49 minutes on the date of the service which included preparing to see the patient, [id number] patient care, completing clinical documentation, obtaining and/or reviewing separately obtained history, performing a medically appropriate examination, counseling and educating the pat ient/family/caregiver, and ordering medications, tests, or procedures. [facility] Telephone encounter Note * Telephone Encounter - Maile Manning MA - 04/04/2025 4:07 PM EDT Patient scheduled for neuro office visit with Kelly 04/05/25. Will discuss refill at time of office visit. Maile Manning MA [facility]07-10-[facility] Miscellaneous Notes* Telephone Encounter - Maile Manning MA - 04/04/2025 4:07 PM EDT Patient scheduled for neuro office visit with KDahlhauskye 04/05/25. Will discuss refill at time of office visit. Maile Manning MA documented in this encounterCh[facility]07-[facility]25 History of Present illness Narrative* Beverly Balbuena RN - 04/04/2025 10:44 AM EDT Patient referred to Blood Management for anemia assessment. Unable to complete due to the unavailability of current lab results. Blood Management referral is closed. documented in this encounterCh[facility]07-07-2025 Telephone encounter Note * Telephone Encounter - Betty Anand MA - 04/01/2025 4:[address] Coles, We received a letter form Dr. Baeza ref to this pt's upcoming procedure with him. Surgical date is 05-17-25. You can see the letter in "LETTER SECTION", date of letter 03/28/25. Please print the letter, complete the question and make your recommendations. Once completed, the letter will need to be faxed to the FAX number noted on the letter. FAX#: [phone]. I will place the copy of the letter that we received in your work bin. [facility] Miscellaneous Notes* Telephone Encounter - Betty Anand MA - 04/01/2025 4:[address] Coles, We received a letter form Dr. Baeza ref to this pt's upcoming procedure with him. Surgical date is 05-17-25. You can see the letter in "LETTER SECTION", date of letter 03/28/25. Please print the letter, complete the question and make your recommendations. Once completed, the letter will need to be faxed to the FAX number noted on the letter. FAX#: [phone]. I will place the copy of the letter that we received in your work bin. documented in this encounterCh[facility]07-[facility]-2025 Telephone encounter Note * Telephone Encounter - Lily Elias RN - 03/26/2025 2:39 PM EDT Neuro SPINE CARE COORDINATION SURGERY SCHEDULING Patient accepts surgery date of 05/17/[address] Baeza at [facility]. Planned procedure is removal posterior segmental instrumentation L3 to sacrum, T10 to ilium posterior segmental instrumentation, correction, and fusion with posterior column osteotomies. . PACC will be at [place]. Medications reviewed : Yes}. Meds to be stopped prior to surgery : NSAIDS and Vitamins and supplements. Additional pre op clearances needed : other Urology. Any implanted devices : No. Transplant History No Patient will get optimization lab work : Blood Management . Questions answered. Patient verbalizes understanding via teach back. Additional comments : Patient will be scheduled for a geriatric consult, has DEMENTIA Preoperative Needs Assessment Do you live alone or with someone that can help you? Lives with caregiver Will you have assistance available at home after your surgery to help with physical activities sucha toileting or dressing? Always How many steps do you need to climb to get into your home? 1-10 Once in your home, how many steps do you need to climb to access your bedroom or bathroom? 1-10 Do you use a mobility aid for walking/getting around? (note, if more than one type of aid is used, select the one that is used more frequently) Rollater Anticipated LOS > 5 days: Yes Significant home social issues or Current history or past history of substance abuse: No Wheelchair baseline, Homebound baseline, Significant gait instability, or History of significant falls: Yes Thora/lumbar fusion any level planned or 2+ level posterior cervical fusion planned: No Myelopathic or Spine tumor: No Probability of non-home discharge disposition : Moderate [26.5] Lily Elias RN [facility] Miscellaneous Notes* Telephone Encounter - Lily Elias RN - 03/26/2025 2:39 PM EDT Neuro SPINE CARE COORDINATION SURGERY SCHEDULING Patient accepts surgery date of 05/17/[address] Baeza at [facility]. Planned procedure is removal posterior segmental instrumentation L3 to sacrum, T10 to ilium posterior segmental instrumentation, correction, and fusion with posterior column osteotomies. . PACC will be at [place]. Medications reviewed : Yes}. Meds to be stopped prior to surgery : NSAIDS and Vitamins and supplements. Additional pre op clearances needed : other Urology. Any implanted devices : No. Transplant History No Patient will get optimization lab work : Blood Management . Questions answered. Patient verbalizes understanding via teach back. Additional comments : Patient will be scheduled for a geriatric consult, has DEMENTIA Preoperative Needs Assessment Do you live alone or with someone that can help you? Lives with caregiver Will you have assistance available at home after your surgery to help with physical activities sucha toileting or dressing? Always How many steps do you need to climb to get into your home? 1-10 Once in your home, how many steps do you need to climb to access your bedroom or bathroom? 1-10 Do you use a mobility aid for walking/getting around? (note, if more than one type of aid is used, select the one that is used more frequently) [place] Anticipated LOS > 5 days: Yes Significant home social issues or Current history or past history of substance abuse: No Wheelchair baseline, Homebound baseline, Significant gait instability, or History of significant falls: Yes Thora/lumbar fusion any level planned or 2+ level posterior cervical fusion planned: No Myelopathic or Spine tumor: No Probability of non-home discharge disposition : Moderate [26.5] Lily Elias, RN * Telephone Encounter - Nga Velazquez - 03/26/2025 2:01 PM EDT Pt's called, again about a surgery date. Please call. [phone] * Telephone Encounter - Liana Villela - 03/22/2025 1:00 PM EDT Call received for Aris Baeza MD regarding Javier Bond. Caller: spouse: Patient Identified by Name and : Javier Roarien 1940 Reason for Call: General - Pt would like to schedule surgery. Is there any additional information the provider should know? No Last Office Visit: 03/19/2025 Next scheduled appointment: Visit date not found Best number to reach caller: [phone] Best time to reach caller: anytime Is it OK to leave a detailed voice message? Yes Liana Villela documented in this encounterCh[facility]ic[facility]07-01-2025 Telephone encounter Note * Telephone Encounter - Nga Velazquez - 03/26/2025 2:01 PM EDT Pt's called, again about a surgery date. Please call. [phone] [facility] Telephone encounter Note* Telephone Encounter - Liana Villela - 03/22/2025 1:00 PM EDT Call received for Aris Baeza MD regarding Javier Bond. Caller: spouse: Patient Identified by Name and : Javier Bond 1940 Reason for Call: General - Pt would like to schedule surgery. Is there any additional information the provider should know? No Last Office Visit: 03/19/2025 Next scheduled appointment: Visit date not found Best number to reach caller: [phone] Best time to reach caller: anytime Is it OK to leave a detailed voice message? Yes Liana Villela [facility] Telephone encounter Note* Telephone Encounter - Francisco Bahena MD - 03/20/2025 8:25 AM EDT [facility] was ended. [facility] Miscellaneous Notes* Telephone Encounter - Francisco Bahena MD - 03/20/2025 8:25 AM EDT [facility] was ended. * Telephone Encounter - Lynn Cornejo MA - 03/07/2025 4:10 PM EDT Called and LM on Beata Ferreira's VM. Asked for a call back to speak with Triage Nurse. Please seemessage below from Provider. Lynn Cornejo MA * Telephone Encounter - Francisco Bahena MD - 03/04/2025 8:45 PM EDT Let Beata know that I have not had the opportunity to read the documentation due to other obligations. If I can get this addressed in the next 24-48 hrs is it still beneficial for them, Otherwise, would it be better to re-see him in the office and eval need for further PHYSICAL THERAPY?? * Telephone Encounter - Patrice Hartman RN - 02/28/2025 10:08 AM EDT Beata [facility] called in asking about the appeal letter information they had sent in and of the provider had time to go over it. Please fax back and or call Beata and let her know what is going on with process. Patrice Hartman RN * Telephone Encounter - Ronan Jean LPN - 02/21/2025 12:28 PM EDT Received fax from [facility] requesting an appeal letter for 4 home PT visits for weakness due to UTI, recent fall and ER visit. All info reveived in fax is on provider's desk for review. Ronan Jean LPN documented in this encounterChillic[facility]06-24-2025 Hospital Discharge instructionsAdditional Instructions Finish your prescription for Bactrim that you started a few days ago. Return with increased weakness, new or worsening symptoms. Keep having your physical therapy performed at home. Follow-up with your primary care provider. Your urine was sent for culture. You will receive a phone call if it is not sensitive to Bactrim.[facility] Work Phone: [phone]) 297-703906-24-2025 History of Present illness Narrative* Aris Baeza MD - 03/19/2025 1:18 PM EDT Javier returns today. Since he was seen a year ago he has developed weakness in his right leg and on 3 occasions has had a fall due to the inability of his right leg to support him. On clinical examhis quads on the right is just grade 4. MRI and CT scans done as a result of the falls show instability at the T12-L1 level and vacuum effect change at the L2-3 level. Given that he is now having neurologic symptoms and evidence of instability I think he would benefit from surgery. Surgery will entail a removal posterior segmental instrumentation L3 to sacrum, T10 to ilium posterior segmental instrumentation, correction, and fusion with posterior column osteotomies. We had a detailed discussionof the risks, benefits, expected outcomes, options and personnel today. He will consider his options and get back to us with how he wishes to proceed. Aris Baeza MD documented in this encounterChillic[facility]06-24-2025 History of Present illness Narrative* Gwendolyn Blanco RT(Aris) - 03/19/2025 12:30 PM EDT Radiology Service Progress Note PATIENT NAME: Javier Bond DATE OF SERVICE: March 19, 2025 TIME: 12:53 PM PATIENT IDENTITY VERIFICATION COMPLETED USING TWO (2) IDENTIFIERS: Name and Date of confirmedby patient verbally. FALL SCREENING: Has the patient had 2 falls in the last year or 1 fall with injury or currently using an Ambulatory Assistive Device (Walker, Cane, Wheelchair, Crutches, etc.)? Yes, Patient High Riskfor Falls What interventions were put in place to prevent falls during this visit? Increased Observations by Caregivers PATIENT GENDER DATA: Assigned male at PATIENT RELEVANT IMPLANT DATA REVIEWED: Not Applicable PATIENT PRESENTS WITH AN IMPLANTABLE OR ATTACHED BLOW PIT OPERATOR: No RADIOLOGY DEPARTMENT: General X-ray: Exam(s) Completed: Spine X-Ray(s): Scoliosis Series PERIPHERAL IV DATA: Not applicable SIGNED BY: BALJIT López) March 19, 2025 12:53 PM documented in this encounterChillicothe Hospital06-24-2025 NoteHNO ID: [id number] Author: GWENDOLYN BLANCO RT(R) Service: ? Author Type: Technologist Type: Progress Notes Filed: 03/19/2025 12:53 Note Text: Radiology Service Progress Note PATIENT NAME: Javier Bond DATE OF SERVICE: March 19, 2025 TIME: 12:53 PM PATIENT IDENTITY VERIFICATION COMPLETED USING TWO (2) IDENTIFIERS: Name and Date of confirmed by patient verbally. FALL SCREENING: Has the patient had 2 falls in the last year or 1 fall with injury or currently using an Ambulatory Assistive Device (Walker, Cane, Wheelchair, Crutches, etc.)? Yes, Patient High Risk for Falls What interventions were put in place to prevent falls during this visit? Increased Observations by Caregivers PATIENT GENDER DATA: Assigned male at PATIENT RELEVANT IMPLANT DATA REVIEWED: Not Applicable PATIENT PRESENTS WITH AN IMPLANTABLE OR ATTACHED BLOW PIT OPERATOR: No RADIOLOGY DEPARTMENT: General X-ray: Exam(s) Completed: Spine X-Ray(s): Scoliosis Series PERIPHERAL IV DATA: Not applicable SIGNED BY: RT Maribel(R) March 19, 2025 12:53 [id number] Telephone encounter Note* Telephone Encounter - Tenzin Marion - 03/12/2025 9:05 AM EDT Pt calling for a refill of baclofen suppository 10 mg (CPD) [facility] Miscellaneous Notes* Telephone Encounter - Tenzin Marion - 03/12/2025 9:05 AM EDT Pt calling for a refill of baclofen suppository 10 mg (CPD) documented in this encounterChillicothe [facility]06-16-2025 Telephone encounter Note * Telephone Encounter - Ann Thapa MA - 03/11/2025 8:37 AM EDT Last seen 02.15.25 Next appt 09.06.25 IMPRESSION: 84 yo M with Bph and asymptomatic bacteriuria, recent episodes without symptoms. Need to evaluate other etiologies of leg weakness. Discussed r/b of URS/LL in case of stone colonization but prefer to hold off on this for now, risk likely > benefit Allergy referral for multiple listed questionable antibiotic allergies All questions and concerns were addressed. Yun Coles MD Requested Prescriptions Pending Prescriptions Disp Refills Methenamine Hippurate (HIPREX) 1 gram tablet 180 tablet 3 Sig: Take 1 tablet by mouth two times a day. [facility] Miscellaneous Notes* Telephone Encounter - Ann Thapa MA - 03/11/2025 8:37 AM EDT Last seen 02.15.25 Next appt 09.06.25 IMPRESSION: 84 yo M with Bph and asymptomatic bacteriuria, recent episodes without symptoms. Need to evaluate other etiologies of leg weakness. Discussed r/b of URS/LL in case of stone colonization but prefer to hold off on this for now, risk likely > benefit Allergy referral for multiple listed questionable antibiotic allergies All questions and concerns were addressed. Yun Coles MD Requested Prescriptions Pending Prescriptions Disp Refills Methenamine Hippurate (HIPREX) 1 gram tablet 180 tablet 3 Sig: Take 1 tablet by mouth two times a day. documented in this encounterChillic[facility]06-13-2025 Telephone encounter Note * Telephone Encounter - Francisco Bahena MD - 03/08/2025 4:14 PM EDT Noted. [facility] Telephone encounter Note* Telephone Encounter - Francisco Bahena MD - 03/08/2025 4:14 PM EDT Info noted. [facility] Miscellaneous Notes* Telephone Encounter - Francisco Bahena MD - 03/08/2025 4:14 PM EDT Info noted. * Telephone Encounter - Patrice Hartman RN - 03/08/2025 2:50 PM EDT Nubia RANGEL with [facility] called in and reports she had talked with Dr Bahena about this Pt. She statesshe provider had talked to her about Pt's insurance declining further HH, and he was asking her about if he should write an appeal letter or just reorder a new start of care for HH. She states she went to see the patient today for his discharge visit. She reports Pt's knee has been buckling and he is not wanting to walk. She reports Pt has an appointment with an Ortho provider Dr Baeza from [place] on03/19/25. She states she thinks Pt needs to see Ortho and then Dr Bahena to see what plan they decide to go with. She reports that insurance denied HH because Pt was refusing to weight bear, walk, or stand. Pt has been using his wheelchair. She states she is ok with reopening an whole new start of care in a few weeks after Dr Baeza and Dr Bahena have come up with a POC for the Pt and he is willing to participate. She said by the time Dr Bahena would send an appeal letter in and Priscilla would get to it his time would be up, because he only has until 03/14/25. She said if you had any questions to call her. Patrice Hartman RN * Telephone Encounter - Yesika Pace RN - 03/05/2025 2:44 PM EDT Nubia with [facility] calling to report a "delay of care" as pt's last visit was denied by insurance. Patient to be discharged from home health services. Call Nubia for any questions, . Yesika Pace RN documented in this encounterCh[facility]06-13-[facility]25 Miscellaneous Notes* Telephone Encounter - rFancisco Bahena MD - 03/08/2025 4:14 PM EDT Noted. * Telephone Encounter - Patrice Hartman RN - 02/25/2025 5:20 PM EDT Pts called and is notified of providers message. She states once every couple weeks he will goout in the car with her, but he will not get out of the car unless its a doctors appointment. She states he stays in the car. Patrice Hartman RN * Telephone Encounter - Francisco Bahena MD - 02/25/2025 4:15 PM EDT I need an update. Find out from if patient is leaving the house to go with her to do things? * Telephone Encounter - Kari Gonzalez RN - 02/19/2025 10:40 AM EDT Luda with [facility] calls to let provider know that patient's insurance has declined to cover the last 4 HH PT visits. Luda reports that patient has recently had an ER visit for UTI and weakness. Luda asking if provider would consider writing an appeal letter to insurance company and faxing back to [facility] at [phone]. Luda faxing ER report, recent PT notes, and HH Reassessment for review to [phone]. Kari Gonzalez RN documented in this encounterChillic[facility]06-13-2025 Telephone encounter Note * Telephone Encounter - Patrice Hartman RN - 03/08/2025 2:50 PM EDT Nubia PT with [facility] called in and reports she had talked with Dr Bahena about this Pt. She statesshe provider had talked to her about Pt's insurance declining further HH, and he was asking her about if he should write an appeal letter or just reorder a new start of care for HH. She states she went to see the patient today for his discharge visit. She reports Pt's knee has been buckling and he is not wanting to walk. She reports Pt has an appointment with an Ortho provider Dr Beaza from [place] on03/19/25. She states she thinks Pt needs to see Ortho and then Dr Bahena to see what plan they decide to go with. She reports that insurance denied HH because Pt was refusing to weight bear, walk, or stand. Pt has been using his wheelchair. She states she is ok with reopening an whole new start of care in a few weeks after Dr Baeza and Dr Bahena have come up with a POC for the Pt and he is willing to participate. She said by the time Dr Bahena would send an appeal letter in and Priscilla would get to it his time would be up, because he only has until 03/14/25. She said if you had any questions to call her. Patrice Hartman RN [facility]06-12-[facility] Telephone encounter Note* Telephone Encounter - Lynn Cornejo MA - 03/07/2025 4:10 PM EDT Called and LM on Beata Ferreira's VM. Asked for a call back to speak with Triage Nurse. Please seemessage below from Provider. Lynn Cornejo MA [facility]06-10-2025 Telephone encounter Note* Telephone Encounter - Yesika Pace RN - 03/05/2025 2:44 PM EDT Nubia with [facility] calling to report a "delay of care" as pt's last visit was denied by insurance. Patient to be discharged from home health services. Call Nubia for any questions, . Yesika Pcae RN [facility]06-09-2025 Telephone encounter Note* Telephone Encounter - Francisco Bahena MD - 03/04/2025 8:45 PM EDT Let Beata know that I have not had the opportunity to read the documentation due to other obligations. If I can get this addressed in the next 24-48 hrs is it still beneficial for them, Otherwise, would it be better to re-see him in the office and eval need for further PHYSICAL THERAPY?? [facility]06-05-[facility] Telephone encounter Note* Telephone Encounter - Patrice Hartman RN - 02/28/2025 10:08 AM EDT Beata [facility] called in asking about the appeal letter information they had sent in and of the provider had time to go over it. Please fax back and or call Beata and let her know what is going on with process. Patrice Hartman RN [facility]06-02-2025 Telephone encounter Note* Telephone Encounter - Patrice Hartman RN - 02/25/2025 5:20 PM EDT Pts called and is notified of providers message. She states once every couple weeks he will goout in the car with her, but he will not get out of the car unless its a doctors appointment. She states he stays in the car. Patrice Hartman RN [facility]06-02-2025 Telephone encounter Note* Telephone Encounter - Francisco Bahena MD - 02/25/2025 4:15 PM EDT I need an update. Find out from if patient is leaving the house to go with her to do things? [facility]05-30[facility] Instructions* Patient Instructions* Gertrudis Carrillo DO - 02/22/2025 3:52 PM EDT Start Atrovent nose spray - blow your nose, point down and out, light sniff - start with 1 spray twice a day - increase to 2 sprays twice a day - can use maximum of 1-2 sprays three times a day - provides quick relief from runny nose and mucus production - can trial off mucinex after a few weeks of use documented in this encounterChillicothe Hospital05-30-2025 History of Present illness Narrative* Gertrudis Carrillo DO - 02/22/2025 3:04 PM EDT Images from the original note were not included. Allergy and Immunology 02/22/2025 PRIMARY CARE PHYSICIAN: Francisco Bahena MD REFERRING PROVIDER: Yun Coles MD Consultation requested for an allergy/immunology evaluation. My final impression and recommendations will be communicated back to the requesting physician by way of shared medical record, fax, or US mail. CHIEF COMPLAINT: Javier is an 84-year-old male presents with concerns about medication allergies. He is accompanied by his , who provides additional history. HISTORY OF PRESENT ILLNESS: Javier reports a 6-12 month history of constant thin sputum production, which is not present during sleep but occurs frequently during the day, including while eating and driving. He describes the sputum as originating from deep within the throat and denies post-nasal drip or rhinorrhea. The sputum production is not associated with acid reflux symptoms such as regurgitation, burning sensation, or bitter taste. Mucinex, prescribed by an ENT and taken twice daily for several months, has not alleviated the symptoms. He denies any recent changes in medication or diet that could account for the increased sputum production. 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 He inquires whether this could be related to his current symptoms as this is around the time when symptoms began.Denies reflux symptoms. Additionally, Javier expresses concerns about a long list of medication allergies, which were documented by previous providers. He reports that many of these allergies were based on minor reactions and not life-threatening events. He recently tolerated Bactrim without any adverse reactions, despite it being listed as an allergy. He is concerned that the extensive allergy list may limit his treatment options for future infections, particularly UTIs, of which he has had two in the past month. Reneenies any history of anaphylactic reactions. Seen by Dr. Payne in 2022 for generalized pruritis. Found to have abnormal SPEP. He also reports a history of severe pruritus, primarily on his back, which has significantly improved with Dupixent. Hehas been on Dupixent for approximately 1.5 years, initially taking it weekly, then every other week, and currently every 7 weeks. He denies any current pruritus or adverse effects from Dupixent. Planto wean off shortly. Collateral Allergy Hx: Rhinitis: [] Yes [x] No Recurrent or chronic sinusitis: [] Yes [x] No Nasal Polyps: [] Yes [x] No Asthma: [] Yes [x] No Eczema or atopic dermatitis: [] Yes [x] No Urticaria: [] Yes [x] No Angioedema: [] Yes [x] No Food allergy: [] Yes [x] No Systemic reaction to insect sting: [] Yes [x] No Reaction to penicillin antibiotics: [] Yes [x] No Reaction to latex: [] Yes [x] No Social Hx: Social History Tobacco Use Smoking status: Former Current packs/day: 0.00 Types: Cigarettes Quit date: 06/24/1963 Years since quittin.7 Smokeless tobacco: Never Tobacco comments: quit in his 20's - smoked socially while in college Vaping Use Vaping status: Never Used Substance Use Topics Alcohol use: Yes Comment: 1-2 drinks in A MONTH Drug use: No Employer And Job Title: [employer] (retired) Years Of Education Completed: 17 years Marital Status: to Peter with 2 children SOCIAL HISTORY No social history on file. 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/24/2022 S/p removal 08/2022 Essential hypertension, benign Essential tremor 11/21/2023 Family history of malignant neoplasm of gastrointestinal tract GERD (gastroesophageal reflux disease) 03/25/2009 Hiatal hernia 06/09/2022 History of compression fracture of spine 11/05/2019 History of recurrent UTIs 01/21/2025 Hypercalciuria, idiopathic 02/11/2020 Hypertrophy of prostate without urinary obstruction and other lower urinary tract symptoms (LUTS) Ilioinguinal neuralgia of left side 09/27/2019 Internal hemorrhoids without mention of complication Iron deficiency anemia 07/23/[address] 10/04/2022 DPA: Peter Lumbar degenerative disc disease 09/14/2012 Lumbar radiculopathy 07/03/2020 Medicare annual wellness visit, subsequent 09/10/2021 Medicare Part B: Not able to find Last done: 09/10/2021 Memory deficits 11/21/202310/2023: w/u ok, patient declined med management Nephrolithiasis 07/04/2007 Neuropathy - (NOS) 08/30/2024 NCS: 08/2024 Oropharyngeal dysphagia 12/25/2020 Osteoporosis 01/28/2020 Other specified anemias 03/16/2022 Acute blood loss 11/2020 (post surgery) Pain in both hands 06/21/2024 Rheum factor+(05/2024) Peripheral edema 05/21/2022 Primary osteoarthritis of both first carpometacarpal joints 05/04/2018 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 09/09/2015 Rosacea 09/09/2015 S/P lumbar spinal fusion 12/15/2020 Sepsis due to Gram-negative organism with septic shock (HCC) 12/17/2020 Proteus mirabilis UTI Situational anxiety 06/27/2019 Situational depression 02/27/2021 Spondylosis of lumbar region without myelopathy or radiculopathy 03/10/2018 Thyroid nodule 12/03/[address] Zacarias Unstable gait 05/21/2021 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 05/11/2021 Weakness of both lower extremities 07/04/2024 FAMILY HISTORY Problem Relation Age of Onset Cancer Mother lung Cancer Father colon Cancer Brother lymphoma PAST SURGICAL HISTORY Procedure Laterality Date ARTHRP INTERCARPAL/CARP/MTCRPL JT INTERPOSITION Left 05/24/2018 Left thumb CMC arthroplasty with LRTI and MCP pinning of left thumb COLONOSCOPY FLX DX W/COLLJ SPEC WHEN PFRMD 07/17/08, 2012 COLONOSCOPY FLX DX W/COLLJ SPEC WHEN PFRMD 03/28/2019 [facility] Cenagil CYSTO.PANENDO 02/20/2021 stent removal EGD TRANSORAL BIOPSY SINGLE/MULTIPLE 12/26/2008 ESOPHAGOGASTRODUODENOSCOPY TRANSORAL DIAGNOSTIC 03/18/2020 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 PERIPHERAL NERVE BLOCK (MOD 59) Bilateral 11/01/2016, 03/28/2018 bilateral lumbar facet medial branch nerve block (l4-5, L5-S1) REMOVAL OF HEMORRHOID CLOT 06/2017 SKIN BIOPSY HX SPINAL FUSION,ANT,EA ADNL LEVEL 2001 TONSILLECTOMY HX Childhood TRANSURETHRAL ELEC-SURG PROSTATECTOM 01/14/2023 XCAPSL CTRC RMVL INSJ IO LENS PROSTH W/O ECP Bilateral 08/25/2016 Current Outpatient Medications Medication Sig pantoprazole DR (PROTONIX) 40 mg tablet Take 1 tablet by mouth once daily. melatonin 5 mg tablet Take 1 tablet by mouth daily at bedtime. baclofen suppository 10 mg (CPD) 1 suppository by RECTAL route once daily. Unwrap and insert as directed. baclofen suppository 10 mg (CPD) 1 suppository by RECTAL route once daily. Unwrap and insert as directed. furosemide (LASIX) 20 mg tablet Take 1 tablet by mouth once daily. traZODone (DESYREL) 100 mg tablet Take 1 tablet by mouth daily at bedtime. memantine (NAMENDA) 10 mg tablet Per Neuro. Dr. Yu sertraline (ZOLOFT) 25 mg tablet Take 1.5 tablets by mouth once daily. Methenamine Hippurate (HIPREX) 1 gram tablet Take 1 tablet by mouth two times a day. polyethylene glycol 3350 (MIRALAX) 17 gram/dose powder Take 17 g by mouth once daily. Dissolve dosein 4 - 8 ounces of liquid and take as directed. metroNIDAZOLE 0.75 % cream Apply to affected area once daily. hydroCHLOROthiazide 12.5 mg tablet Take 1 tablet by mouth once daily. donepezil (ARICEPT) 5 mg tablet Take 2 tablets by mouth daily at bedtime. dupilumab 300 mg/2 mL subcutaneous syringe ([employer]) Inject 2 mL subcutaneously every 4 weeks. PerDerm: Dr. Mariee Lactobacillus acidophilus (PROBIOTIC ACIDOPHILUS ORAL) Take 1 capsule by mouth once daily. d-mannose powd Take 1/2 teaspoon by mouth once daily. triamcinolone acetonide (KENALOG) 0.1 % cream Apply 1 application to affected area as directed. doxycycline 20 mg tablet Take 20 mg by mouth twice daily. multivit-min/iron/folic acid/K (ADULTS MULTIVITAMIN ORAL) Take 1 tablet by mouth once daily. MEDICAL SUPPLY KAFO for right lower extremity. acetaminophen (TYLENOL) 500 mg tablet Take 2 tablets by mouth every 8 hours as needed for Pain or Fever. aspirin 81 mg chewable tablet Take 1 tablet by mouth once daily. Ipratropium [place] (ATROVENT) 21 mcg (0.03 %) nasal spray Use 1-2 sprays in the nose three times aday. guaiFENesin (MUCINEX) 600 mg 12 hr tablet Take 2 tablets by mouth two times a day as needed for cold/allergy symptoms. (Patient not taking: Reported on 02/22/2025) lisinopril (ZESTRIL) 5 mg tablet Take 1 tablet by mouth once daily. (Patient not taking: Reported on 12/31/2024) No current facility-administered medications for this visit. ALLERGIES Allergen Reactions Finacea [Azelaic Ac* Rash Cardura [Doxazosin * Unknown Cytotec [Misoprosto* Unknown Fosamax [Alendronat* Vomiting heartburn, vomiting Gabapentin Mental Status Change Ketoconazole Unknown Nsaids (Non-Steroid* Unknown GI UPSET Relafen [Nabumetone] Unknown Terbinafine GI Upset stomachache PHYSICAL EXAM: BP 119/79 Pulse 69 Resp 22 SpO2 99% General: No acute distress. HEENT: Nasal mucosa without significant swelling. Neuro: Short-term memory loss during visit GENERAL: alert, oriented, cooperative with exam HEAD: atraumatic, normocephalic EYES: conjunctivae normal, extraocular movements in tact, pupils equal, round, and reactive, EARS: external ears normal NOSE: nares patent without significant congestion, clear rhinorrhea MOUTH: mucus membranes moist, oropharynx clear without erythema, frequent spitting of clear sputum CV: heart sounds normal, regular rate and rhythm, cap refill normal CHEST/LUNGS: respirations easy and regular, good air entry bilaterally, clear to auscultation with no adventitious sounds SKIN: warm, well perfused, no rashes DATA/DIAGNOSTICS: I personally reviewed and interpreted relevant prior results, notable as below: Labs: Latest Ref Rng 12/02/2022 09/14/2023 08/30/2024 Albumin 3.43 - 5.41 g/dL 4.34 4.30 4.38 Alpha 1 Globulin 0.18 - 0.43 g/dL 0.25 0.26 0.25 Alpha 2 Globulin 0.42 - 0.98 g/dL 0.59 0.58 0.60 Beta Globulin 0.61 - 1.17 g/dL 0.63 0.65 0.64 Gamma Globulin 0.53 - 1.51 g/dL 0.98 0.92 0.84 Interpretation (Prot Electro) No definitive M protein is identified on protein electrophoresis. An atypical region of restricted mobility is identified on protein electrophoresis. ! No definitive M protein is identified on protein electrophoresis. An atypical region of restricted mobility is identified on protein electrophoresis. ! Interpretation Comment for Protein Electrophoresis The atypical region is relatively poorly definedand may represent an unusual presentation of polyclonal immunoglobulins, but cannot rule out the presence of a low level M protein. If clinically indicated, monoclonal protein analysis and serum freelight chain analysis are suggested to evaluate further for monoclonal gammopathy. The atypical region is relatively poorly defined and may represent an unusual presentation of polyclonal immunoglobulins, but cannot rule out the presence of a low level M protein. If clinically indicated, monoclonal protein analysis and serum free light chain analysis are suggested to evaluate further for monoclonal gammopathy. M-Protein Location -- -- -- M-Protein Concentration <=0.00 g/dL 0.00 0.00 0.00 SPE Staff Review Reviewed by Roxi Prabhakar MD Reviewed by Dr. Noemi Dempsey MD Reviewed by Bhavin Kilgore MD, Ph.D ([id number]) Latest Ref Rng 12/10/2022 03/09/2023 09/14/2023 08/30/2024 [place] Free, Serum 3.3 - 19.4 mg/L 45.3 (H) 43.4 (H) 35.2 (H) 30.4 (H) Lambda Free, Serum 5.7 - 26.3 mg/L 25.2 21.7 20.7 19.8 K/L Ratio, Serum 0.26 - 1.65 1.80 (H) 2.00 (H) 1.70 (H) 1.54 MEDICAL DECISION MAKIN. Adverse effect of drug, sequela (T50.905S) Allergy to multiple antibiotics (Z88.1) Reviewed patient's allergy list. Many reported allergies are not life- threatening and include mild reactions such as GI upset and itching (of which he has baseline generalized pruritis). No history of severe reactions that would be concerning for IgE mediated hypersensitivity or severe cutaneous adverse reactions that would be absolutely contraindicated. - Removed non-severe allergies from the list, including Bactrim, ciprofloxacin, levofloxacin, and nitrofurantoin. - Others that were unable to be clarified by history or were not as high priority (non antibiotic) were left on the list. - Provided updated allergy list to patient. 2. Sputum production (R05.8) Chronic sputum production for the past year, not associated with post-nasal drip or acid reflux. Mucinex has been ineffective in reducing symptoms. No significant nasal swelling observed on examination. - Initiated Atrovent nasal spray, 1 spray in each nostril twice daily. - Educated patient on proper nasal spray technique to avoid wastage and potential side effects. - Advised continuation of Mucinex for 2 weeks while starting Atrovent, then trial discontinuation of Mucinex to assess effectiveness. Follow up: with PCP Patient advised to call or return sooner should current symptoms worsen or fail to improve or if new symptoms or problems arise. It was my pleasure to participate in the care of this patient. Gertrudis Carrillo DO Allergy and Clinical Immunology [facility] Julio Cronin spent a total of 55 minutes on the date of the service which included preparing to see the patient, [id number] patient care, completing clinical documentation, obtaining and/or reviewing separately obtained history, performing a medically appropriate examination, counseling and educating the pat ient/family/caregiver, and ordering medications, tests, or procedures. Recording using Vivonet software for draft documentation of the visit was discussed with the patient/authorized telemarketing representative; all questions welcomed and answered. Patient/authorized telemarketing representative agreed to proceed documented in this encounterChillicothe Hospital05-29-2025 Telephone encounter Note * Telephone Encounter - Ronan Jean LPN - 02/21/2025 12:28 PM EDT Received fax from [facility] requesting an appeal letter for 4 home PT visits for weakness due to UTI, recent fall and ER visit. All info reveived in fax is on provider's desk for review. Ronan Jean LPN [facility]05-29-2025 Telephone encounter Note* Telephone Encounter - Lily Elias RN - 02/21/2025 12:08 PM EDT Neuro SPINE CARE COORDINATION QUICK NOTE Imaging is available in EPIC [facility]05-29-2025 Miscellaneous Notes* Telephone Encounter - Lily Elias RN - 02/21/2025 12:08 PM EDT Neuro SPINE CARE COORDINATION QUICK NOTE Imaging is available in [facility] * Telephone Encounter - Lily Elias RN - 02/20/2025 3:47 PM EDT Neuro SPINE CARE COORDINATION QUICK NOTE Spoke with spouse who states patient had Lumbar MRI on 01/08/2025 at [facility]. Aware imaging must be in our system prior to appointment with dr Baeza. Spoke with [facility] and they will be sending Lumbar Xray and Lumbar MRI through [employer]. * Telephone Encounter - Lily Elias RN - 02/20/2025 3:12 PM EDT ----- Message from Naz Stewart PA-C sent at 02/19/2025 12:42 PM EDT ----- Can we please call patient to see if he has updated lumbar MRI? Spoke to urologist and she wanted us to follow up with him. He is scheduled for one year post op follow up on 03/19/25. If he has the MRI can we have it sent over to us? If not can we add him to my schedule so that I can get images prior to his appointment with Dr. Baeza. Naz Jaramillo documented in this encounterChillicothe Hospital05-28-2025 Telephone encounter Note * Telephone Encounter - Lily Elias RN - 02/20/2025 3:47 PM EDT Neuro SPINE CARE COORDINATION QUICK NOTE Spoke with spouse who states patient had Lumbar MRI on 01/08/2025 at [facility]. Aware imaging must be in our system prior to appointment with dr Baeza. Spoke with [facility] and they will be sending Lumbar Xray and Lumbar MRI through [employer]. [facility]05-28-[facility] Telephone encounter Note* Telephone Encounter - Lily Elias RN - 02/20/2025 3:12 PM EDT ----- Message from Naz Stewart PA-C sent at 02/19/2025 12:42 PM EDT ----- Can we please call patient to see if he has updated lumbar MRI? Spoke to urologist and she wanted us to follow up with him. He is scheduled for one year post op follow up on 03/19/25. If he has the MRI can we have it sent over to us? If not can we add him to my schedule so that I can get images prior to his appointment with Dr. Baeza. Naz Jaramillo [facility]05-28-2025 History of Present illness Narrative* Francisco Bahena MD - 02/20/2025 7:14 AM EDT Patient's home health 485 form / care plan for certification period 01/14/2025 to 03/14/2025 reviewedand signed. Relevant medical records were reviewed. Changes were communicated to home health agency documented in this encounterChillicothe [facility]05-27-2025 Telephone encounter Note * Telephone Encounter - Kari Gonzalez RN - 02/19/2025 10:40 AM EDT Luda with [facility] calls to let provider know that patient's insurance has declined to cover the last 4 HH PT visits. Luda reports that patient has recently had an ER visit for UTI and weakness. Luda asking if provider would consider writing an appeal letter to insurance company and faxing back to [facility] at [phone]. Luda faxing ER report, recent PT notes, and HH Reassessment for review to [phone]. Kari Gonzalez RN [facility]05-23-2025 History of Present illness Narrative* Daniela Morgan RN - 02/15/2025 2:38 PM EDT Post Void Residual done on patient with 79 cc residual volume remaining. MD notified. Daniela Morgan RN * Yun Coles MD - 02/15/2025 2:11 PM EDT [facility] FEMALE PELVIC MEDICINE AND RECONSTRUCTIVE SURGERY HISTORY OF PRESENT ILLNESS: Javier Bond is a 84 year old F female here today for a follow up regarding recurrent UTI. Recently with multiple hospitalizations for UTI. Symptom is falling and positive urine culture. No othersymptoms. No urinary symptoms at all, no vital sign changes, weakness, dizziness, confusion. Culture Results - Past 1 Year Culture 12/17/2024 >=100,000 CFU/ml Escherichia coli ! 01/22/2025 Mixed microbiota, including predominantly: 10,000 -<50,000 CFU/ml Serratia marcescens ! 02/12/2025 10,000 -<50,000 CFU/ml Mixed microbiota ! 01/12/25 ESBL E. Coli WBC 3.0 in presentation (BL 3.7-5) On hipprex BID HISTORIES: PAST MEDICAL HISTORY PAST MEDICAL HISTORY Diagnosis Date Abnormal SPEP 12/14/2022 Advance directive discussed with patient 10/04/2022 Discussed 09/2022 Anemia, chronic disease 08/25/2023 Hg runs 10-12.7 Arthritis Benign intracranial hypertension 11/30/2002 Bilateral carotid artery stenosis 12/03/2020 US 08/2020: Rt 20-40%, Lt 0-20% 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 Cervical spondylosis without myelopathy 06/27/2023 Chronic constipation 12/03/2020 Chronic LLQ pain 02/23/2024 A constant dull ache: w/u was neg Compression fracture of third lumbar vertebra (HCC) 11/05/2019 Degenerative lumbar spinal stenosis 12/15/2020 Dementia without behavioral disturbance (HCC) 12/23/2023 Dementia without behavioral disturbance (HCC) 12/23/202310/2023: w/u ok, patient initially declined med management but changed his mind and stated Aricpet mid 11/2023. 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/24/2022 S/p removal 08/2022 Essential hypertension, benign Essential tremor 11/21/2023 Family history of malignant neoplasm of gastrointestinal tract GERD (gastroesophageal reflux disease) 03/25/2009 Hiatal hernia 06/09/2022 History of compression fracture of spine 11/05/2019 History of recurrent UTIs 01/21/2025 Hypercalciuria, idiopathic 02/11/2020 Hypertrophy of prostate without urinary obstruction and other lower urinary tract symptoms (LUTS) Ilioinguinal neuralgia of left side 09/27/2019 Internal hemorrhoids without mention of complication Iron deficiency anemia 07/23/[address] 10/04/2022 DPA: Peter Lumbar degenerative disc disease 09/14/2012 Lumbar radiculopathy 07/03/2020 Medicare annual wellness visit, subsequent 09/10/2021 Medicare Part B: Not able to find Last done: 09/10/2021 Memory deficits 11/21/202310/2023: w/u ok, patient declined med management Nephrolithiasis 07/04/2007 Neuropathy - (NOS) 08/30/2024 NCS: 08/2024 Oropharyngeal dysphagia 12/25/2020 Osteoporosis 01/28/2020 Other specified anemias 03/16/2022 Acute blood loss 11/2020 (post surgery) Pain in both hands 06/21/2024 Rheum factor+(05/2024) Peripheral edema 05/21/2022 Primary osteoarthritis of both first carpometacarpal joints 05/04/2018 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 09/09/2015 Rosacea 09/09/2015 S/P lumbar spinal fusion 12/15/2020 Sepsis due to Gram-negative organism with septic shock (HCC) 12/17/2020 Proteus mirabilis UTI Situational anxiety 06/27/2019 Situational depression 02/27/2021 Spondylosis of lumbar region without myelopathy or radiculopathy 03/10/2018 Thyroid nodule 12/03/[address] Zacarias Unstable gait 05/21/2021 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 05/11/2021 Weakness of both lower extremities 07/04/2024 PAST SURGICAL HISTORY PAST SURGICAL HISTORY Procedure Laterality Date ARTHRP INTERCARPAL/CARP/MTCRPL JT INTERPOSITION Left 05/24/2018 Left thumb CMC arthroplasty with LRTI and MCP pinning of left thumb COLONOSCOPY FLX DX W/COLLJ SPEC WHEN PFRMD 07/17/08, 2012 COLONOSCOPY FLX DX W/COLLJ SPEC WHEN PFRMD 03/28/2019 [facility] CYSTO.PANENDO 02/20/2021 stent removal EGD TRANSORAL BIOPSY SINGLE/MULTIPLE 12/26/2008 ESOPHAGOGASTRODUODENOSCOPY TRANSORAL DIAGNOSTIC 03/18/2020 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 PERIPHERAL NERVE BLOCK (MOD 59) Bilateral 11/01/2016, 03/28/2018 bilateral lumbar facet medial branch nerve block (l4-5, L5-S1) REMOVAL OF HEMORRHOID CLOT 06/2017 SKIN BIOPSY HX SPINAL FUSION,ANT,EA ADNL LEVEL 2001 TONSILLECTOMY HX Childhood TRANSURETHRAL ELEC-SURG PROSTATECTOM 01/14/2023 XCAPSL CTRC RMVL INSJ IO LENS PROSTH W/O ECP Bilateral 08/25/2016 FAMILY HISTORY FAMILY HISTORY Problem Relation Age of Onset Cancer Mother lung Cancer Father colon Cancer Brother lymphoma SOCIAL HISTORY Social History Tobacco Use Smoking status: Former Current packs/day: 0.00 Types: Cigarettes Quit date: 06/24/1963 Years since quittin.6 Smokeless tobacco: Never Tobacco comments: quit in his 20's - smoked socially while in college Vaping Use Vaping status: Never Used Substance Use Topics Alcohol use: Yes Comment: 1-2 drinks in A MONTH Drug use: No MEDICATIONS: Current Outpatient Medications Medication Sig baclofen suppository 10 mg (CPD) 1 suppository by RECTAL route once daily. Unwrap and insert as directed. baclofen suppository 10 mg (CPD) 1 suppository by RECTAL route once daily. Unwrap and insert as directed. furosemide (LASIX) 20 mg tablet Take 1 tablet by mouth once daily. traZODone (DESYREL) 100 mg tablet Take 1 tablet by mouth daily at bedtime. memantine (NAMENDA) 10 mg tablet Per Neuro. Dr. Yu sertraline (ZOLOFT) 25 mg tablet Take 1.5 tablets by mouth once daily. Methenamine Hippurate (HIPREX) 1 gram tablet Take 1 tablet by mouth two times a day. polyethylene glycol 3350 (MIRALAX) 17 gram/dose powder Take 17 g by mouth once daily. Dissolve dosein 4 - 8 ounces of liquid and take as directed. metroNIDAZOLE 0.75 % cream Apply to affected area once daily. pantoprazole DR (PROTONIX) 40 mg tablet Take 1 tablet by mouth two times a day. hydroCHLOROthiazide 12.5 mg tablet Take 1 tablet by mouth once daily. donepezil (ARICEPT) 5 mg tablet Take 2 tablets by mouth daily at bedtime. lisinopril (ZESTRIL) 5 mg tablet Take 1 tablet by mouth once daily. (Patient not taking: Reported on 12/31/2024) dupilumab 300 mg/2 mL subcutaneous syringe ([employer]) Inject 2 mL subcutaneously every 4 weeks. PerDerm: Dr. Mariee Lactobacillus acidophilus (PROBIOTIC ACIDOPHILUS ORAL) Take 1 capsule by mouth once daily. d-mannose powd Take 1/2 teaspoon by mouth once daily. triamcinolone acetonide (KENALOG) 0.1 % cream Apply 1 application to affected area as directed. doxycycline 20 mg tablet Take 20 mg by mouth twice daily. multivit-min/iron/folic acid/K (ADULTS MULTIVITAMIN ORAL) Take 1 tablet by mouth once daily. MEDICAL SUPPLY KAFO for right lower extremity. acetaminophen (TYLENOL) 500 mg tablet Take 2 tablets by mouth every 8 hours as needed for Pain or Fever. aspirin 81 mg chewable tablet Take 1 tablet by mouth once daily. No current facility-administered medications for this visit. CURRENT ALLERGIES: Allergies As of Date: 02/15/2025 Allergen Noted Reaction CONTRAST DYE 03/24/2009 Hives FINACEA [AZELAIC ACID] 09/28/2017 Rash BACTRIM [SULFAMETHOXAZOLE-TRIMETH*06/02/2005 Unknown BEXTRA [VALDECOXIB] 06/02/2005 Unknown CARDURA [DOXAZOSIN MESYLATE] 06/02/2005 Unknown CIPROFLOXACIN 11/30/2002 Unknown CYTOTEC [MISOPROSTOL] 06/02/2005 Unknown FOSAMAX [ALENDRONATE SODIUM] 01/04/2020 Vomiting GABAPENTIN 01/28/2021 Mental Status Change KETOCONAZOLE 09/06/2008 Unknown LEVOFLOXACIN 01/26/2012 Other: See Comments MOBIC [MELOXICAM] 06/02/2005 Unknown NITROFURANTOIN 05/15/2021 Other: See Comments NSAIDS (NON-STEROIDAL ANTI-INFLAM*11/30/2002 Unknown RELAFEN [NABUMETONE] 06/02/2005 Unknown TERBINAFINE 10/02/2009 GI Upset Fully Assessed 01/21/2025 PHYSICAL EXAM: General: No acute distress, well appearing PVR: 79 mL via bladder US CT flank 02/13/25 IMPRESSION: Peripelvic nonobstructing left renal calculi. Colonic diverticulosis. IMPRESSION: 84 yo M with Bph and asymptomatic bacteriuria, recent episodes without symptoms. Need to evaluate other etiologies of leg weakness. Discussed r/b of URS/LL in case of stone colonization but prefer to hold off on this for now, risk likely > benefit Allergy referral for multiple listed questionable antibiotic allergies All questions and concerns were addressed. Yun Coles MD documented [facility] this encounterCh[facility] History of Present illness Narrative* Nik Omer RN - 02/08/2025 9:20 AM EDT Transitional Care Management (TCM) Follow-Up Note PCP Update / Actionable Items N/A - No specialty updates needed Patient Source: [id number] ([facility]) Discharge Outreach Summary: Talked with Peter this am States he is doing ok Discussed the night terrors have returned making it challenging for him to sleep well. She talked with office and waiting on response from PCP Was able to get follow up with Urology 02/15 No additional concerns Contact: Contact made with patient: Yes Spoke to: Spouse, Peter Validation: Validated the person spoken to is actively involved in the patient's care. The patient was identified by Name and Date of . I'd like to get an update on how you're doing since our last phone call. Is now a good time to talk? Yes Symptoms: Are you feeling about the same, better or worse since leaving the hospital? Better Weekly Outreach: Additional Outreach Medications: Do you have any questions about taking your medications, including which medications you should be on, or do you need refills on your medications? No Patient Questions / Concerns: Do you have any questions related to your discharge? No Appointment / TCM Follow-Up: Have you had a follow-up visit with your Primary Care Provider or Specialist since you were discharged? Yes Do you need any assistance with scheduling or changing your follow-up appointments? Patient alreadyhas an appointment scheduled EDUCATION: N/A Nik Omer RN February 08, 2025 9:28 AM documented in this encounterChill[facility]05-[facility] Telephone encounter Note * Telephone Encounter - Jackie Castañeda - 02/05/2025 11:[address] scheduled for 02/13 [facility]05-13-2025 Miscellaneous Notes* Telephone Encounter - Jackie Castañeda - 02/05/2025 11:[address] scheduled for 02/13 * Telephone Encounter - Twila Herbert RN - 02/05/2025 9:52 AM EDT Spoke with who will attempt to obtain records from [facility]. Accepted appointment on 02/15. Will forward to scheduling to assist with CT appointment. * Telephone Encounter - Eve Marcos RN - 02/04/2025 5:07 PM EDT message routed to Dr Coles and female urology pool please advise, thank you * Telephone Encounter - Skylar Chicas - 02/04/2025 4:44 PM EDT Patient's , Peter reaching out to Dr. Coles to see if she can possibly order another medication that would help him with the recurrent UTI's. If not, does she have any suggestions on what can be done to help him? When he gets the UTI's he falls, his calls the squad, and he goes to the ER. It hits him suddenly and then he falls.. He is afraid to walk for fear of falling. There are records in his chart that Peter would like Dr. Stewart to review. Peter can be reached at [phone]. documented in this encounterChillicothe Hospital05-13-2025 Telephone encounter Note * Telephone Encounter - Twila Herbert RN - 02/05/2025 9:52 AM EDT Spoke with who will attempt to obtain records from [facility]. Accepted appointment on 02/15. Will forward to scheduling to assist with CT appointment. [facility]05-12-2025 Telephone encounter Note* Telephone Encounter - Eve Marcos RN - 02/04/2025 5:07 PM EDT message routed to Dr Coles and female urology pool please advise, thank you [facility]-12[facility] Telephone encounter Note* Telephone Encounter - Skylar Chicas - 02/04/2025 4:44 PM EDT Patient's , Peter reaching out to Dr. Coles to see if she can possibly order another medication that would help him with the recurrent UTI's. If not, does she have any suggestions on what can be done to help him? When he gets the UTI's he falls, his calls the squad, and he goes to the ER. It hits him suddenly and then he falls.. He is afraid to walk for fear of falling. There are records in his chart that Peter would like Dr. Stewart to review. Peter can be reached at [phone]. [facility] Telephone encounter Note* Telephone Encounter - Kari Gonzalez RN - 02/04/2025 9:54 AM EDT Call placed to Karissa and notified ok for social work eval and TX. Kari Gonzalez RN [facility]05-12-2025 Miscellaneous Notes* Telephone Encounter - Kari Gonzalez RN - 02/04/2025 9:54 AM EDT Call placed to Karissa and notified ok for social work eval and TX. Kari Gonzalez RN * Telephone Encounter - Francisco Bahena MD - 02/04/2025 9:53 AM EDT Let Karissa know I'm ok with the vp digital marketing social media and crm consult. * Telephone Encounter - Kari Gonzalez RN - 02/04/2025 9:42 AM EDT Karissa HUBBARD with [facility] calls to request orders for a SW eval and TX this week to assist spouse with community resources. Call back number for Karissa is [phone]. Please review and advise, Kari Gonzalez RN documented in this encounterChillicothe Hospital05-12-2025 Telephone encounter Note * Telephone Encounter - Francisco Bahena MD - 02/04/2025 9:53 AM EDT Let Karissa know I'm ok with the vp digital marketing social media and crm consult. [facility] Telephone encounter Note* Telephone Encounter - Kari Gonzalez RN - 02/04/2025 9:42 AM EDT Karissa SW with [facility] calls to request orders for a SW eval and TX this week to assist spouse with community resources. Call back number for Karissa is [phone]. Please review and advise, Kari Gonzalez RN [facility]05-09-2025 Telephone encounter Note* Telephone Encounter - Clari Carolina RN - 02/01/2025 4:36 PM EDT Nubia physical therapist from [facility] calling in with continued plan of care. She saw pt today and did a re-evaluation and are going to continue to see pt 2x/wk for 3 weeks for lower extremity strengthening, balance and gait training. [facility]-09-[facility] Miscellaneous Notes* Telephone Encounter - Clari Carolina RN - 02/01/2025 4:36 PM EDT Nubia physical therapist from [facility] calling in with continued plan of care. She saw pt today and did a re-evaluation and are going to continue to see pt 2x/wk for 3 weeks for lower extremity strengthening, balance and gait training. documented in this encounterChillicothe Hospital05-09-2025 History of Present illness Narrative* Nik Omer RN - 02/01/2025 3:08 PM EDT Transitional Care Management (TCM) Follow-Up Note PCP Update / Actionable Items N/A - No specialty updates needed Patient Source: [id number] ([facility]) Discharge Outreach Summary: Discussed frequent UTI's lately Seen in ED-no infection. Was advised by PCP to follow up with Urology Peter reports he had gone 16 months without infection and in past few months has needed treated forUTI Reinforced to schedule appointment with Urology. Frustrated with what she anticipates will be long wait time. Dr. Bahena sent message to Dr. Coles waiting on response Contact: Contact made with patient: Yes Spoke to: Spouse, Peter Validation: Validated the person spoken to is actively involved in the patient's care. The patient was identified by Name and Date of . I'd like to get an update on how you're doing since our last phone call. Is now a good time to talk? Yes Symptoms: Are you feeling about the same, better or worse since leaving the hospital? Better Weekly Outreach: Additional Outreach Nik Omer RN February 01, 2025 3:12 PM documented in this encounterChillicothe Hospital05-09-[facility] History of Present illness Narrative* Nik Omer RN - 02/01/2025 9:43 AM EDT ED Follow-Up Note Provider Action / FYI: Call completed by: RN Patient seen in ED: Out of Network ED Contact made with Patient: Yes The patient was identified by Name and Date of . Discussed Care with: patient Patient was seen in the Emergency Department (ED) Location: [place] Date: 01/29 Reason for ED Visit: Bilateral lower extremity weakness ED Intervention: Blood work, urinalysis New Medications: none Offered one time dose of fosfomycin/declined Medication Changes: none Does patient understand medication changes: N/A Can patient afford medication changes: N/A Patient educated on worsening symptoms and when and where to seek additional care: Yes Patient Education Provided including treatment plan and new orders. Patient provided with appropriate counseling: Yes Based on reducing machine operator, the following disposition is advised: No symptoms or symptoms present, not severe. Routed to: No Action Needed VANESSA Education Provided this Outreach: No Nik Omer RN February 01, 2025 12:11 PM * Nik Omer RN - 02/01/2025 9:38 AM EDT Transitional Care Management (TCM) Follow-Up Note PCP Update / Actionable Items N/A - No specialty updates needed Patient Source: [id number] ([facility]) Discharge Outreach Summary: Spoke with patient briefly Doing ok Still struggling with feeling weak and fatigued. Peter currently on the other line with "another hospital". Agreed to call back Contact: Contact made with patient: Yes Spoke to: Patient Validation: Validated the person spoken to is actively involved in the patient's care. The patient was identified by Name and Date of . I'd like to get an update on how you're doing since our last phone call. Is now a good time to talk? Yes Symptoms: Are you feeling about the same, better or worse since leaving the hospital? Same Weekly Outreach: 2nd Outreach Will follow up with Peter on ED visit Medications: Do you have any questions about taking your medications, including which medications you should be on, or do you need refills on your medications? Yes Discussed the patient's questions and/or concerns. If applicable, the appropriate team/provider updated. Nik Omer RN February 01, 2025 9:42 AM documented in this encounterCh[facility]05-[facility]25 Telephone encounter Note * Telephone Encounter - Kari Gonzalez RN - 01/30/2025 4:03 PM EDT Francisco returns call and provider message given with verbalized understanding. Kari Gonzalez RN [facility]05-07-[facility] Miscellaneous Notes* Telephone Encounter - Kari Gonzalez RN - 01/30/2025 4:03 PM EDT Francisco returns call and provider message given with verbalized understanding. Kari Gonzalez RN * Telephone Encounter - Yash Monroe MA - 01/30/2025 3:48 PM EDT Left message for Francisco to contact office. ]Yash Monroe MA * Telephone Encounter - Francisco Bahena MD - 01/30/2025 3:45 PM EDT Let Francisco know I'm not concerned about the drug interaction. * Telephone Encounter - Dorothy Hernandez RN - 01/30/2025 3:36 PM EDT Francisco from [facility] calls and report that patient had fallen and was taken to [facility] ER. There is urine culture pending at [facility] lab. Patient was put on Bactrim. Francisco calling to report an drug to drug interaction with Bactrim and Lisinopril Dorothy Hernandez RN documented in this encounterChillicothe Hospital05-07-2025 Telephone encounter Note * Telephone Encounter - Yash Monroe MA - 01/30/2025 3:48 PM EDT Left message for Francisco to contact office. ]Yash Monroe MA [facility]-07-[facility] Telephone encounter Note* Telephone Encounter - Yash Monroe MA - 01/30/2025 3:46 PM EDT Spoke with and gave her update. She voiced understanding. Yash Monroe MA [facility]-07-[facility] Miscellaneous Notes* Telephone Encounter - Yash Monroe MA - 01/30/2025 3:46 PM EDT Spoke with and gave her update. She voiced understanding. Yash Monroe MA * Telephone Encounter - Francisco Bahena MD - 01/30/2025 2:17 PM EDT Let the know the F/u should be with Dr. Coles for these recurrent UTI's * Telephone Encounter - Yesika Pace RN - 01/30/2025 12:28 PM EDT Patient's Peter calling in. States pt was seen at [facility] ER yesterday for weakness/UTI. Pt has been taking Bactrim since this past Tuesday and is to take it for 7 days. They are waiting on resultsof urine culture to come back and [facility] states they would call them only if culture not sensitive to bactrim. states she is agreeable to make ER F/U appt for patient but only with Dr. Bahena, and needs merle an afternoon appt. She declined other sooner available appts within [facility]. There are no afternoon ER F/U appts with Dr. Bahena available until early February. asking for Dr. Bahena to be updated of this, as she is not going to make an ER F/U appt at this time. Please advise as to how they should follow up. Yesika Pace RN documented in this encounterChillicothe Hospital05-07-2025 Telephone encounter Note * Telephone Encounter - Francisco Bahena MD - 01/30/2025 3:45 PM EDT Let Francisco know I'm not concerned about the drug interaction. [facility] Telephone encounter Note* Telephone Encounter - Dorothy Hernandez RN - 01/30/2025 3:36 PM EDT Francisco from [facility] calls and report that patient had fallen and was taken to [facility] ER. There is urine culture pending at [facility] lab. Patient was put on Bactrim. Francisco calling to report an drug to drug interaction with Bactrim and Lisinopril Dorothy Hernandez RN [facility]-07-[facility] Telephone encounter Note* Telephone Encounter - Francisco Bahena MD - 01/30/2025 2:17 PM EDT Let the know the F/u should be with Dr. Coles for these recurrent UTI's [facility] Telephone encounter Note* Telephone Encounter - Yesika Pace RN - 01/30/2025 12:28 PM EDT Patient's Peter calling in. States pt was seen at [facility] ER yesterday for weakness/UTI. Pt has been taking Bactrim since this past Tuesday and is to take it for 7 days. They are waiting on resultsof urine culture to come back and [facility] states they would call them only if culture not sensitive to bactrim. states she is agreeable to make ER F/U appt for patient but only with Dr. Bahena, and needs merle an afternoon appt. She declined other sooner available appts within [facility]. There are no afternoon ER F/U appts with Dr. Bahena available until early February. asking for Dr. Bahena to be updated of this, as she is not going to make an ER F/U appt at this time. Please advise as to how they should follow up. Yesika Pace RN [facility] Discharge summary [facility] Medical Records Department [address] [place] [address] Emergency Department Summary 01/29/25 MR#: [id number] Acct: [id number] Name: JAVIER BOND Rep #:[id number] : [id number] 84 From: Pool Lopez MD PCP: Dr. Francisco Bahena MD Status:REG ER Location: ED HPI History of Present Illness Chief Complaint: Weakness Narrative Narrative: 84-year-old male presents via EMS with bilateral leg weakness that he experienced this evening. He had his relate history that they were seen inthe emergency department a few weeks ago. He was admitted because he had a UTI,and he was unable to walk and was very weak. He also had an MRI of the spine atthat time. They relate history that he was treated for urinary tract infection and had been given fosfomycin. He denies any recent problems with dysuria or symptoms, however he was seen by hisprimary care provider on Tuesday, and diagnosed with a UTI and started on Bactrim. Today, he had bilateral lower extremity weakness again even though he sees physical therapy at his house 2 or 3 timesa week. He states that he usually tries to go down the stairs backwards. These and was folded up "like a pretzel" according to his . He denies actually falling, hitting his head, or injury. He was trying to get turned around so he could stand up but was unable to. Hence, his called the squad, and they had to help pick him up. He has not had any recent fevers or chills, no other symptoms except for the bilateral lower extremity weakness which has been ongoing. His states that whenever he has a urinary tract infection, this is his main symptom and he becomes weak. [facility] Medical History History of ESBL E. coli infection Anxiety Depression Kidney stones Kidney disease Former smoker Anxiety and depression HLD (hyperlipidemia) CKD (chronic kidney disease), stage II Dementia Left inguinal hernia Groin pain Inguinal hernia bilateral, non-recurrent Right inguinal hernia History of kidney stones History of hiatal hernia Abdominal pain BPH (benign prostatic hyperplasia) Arthritis History of back problems Hypertension Home Medications ?Medication ?Instructions ?Recorded ?Last Taken ?Type acetaminophen 500 mg tablet 1,000 mg PO PRN Pain 04/03 Unknown History hydrochlorothiazide 12.5 mg capsule 12.5 mg PO DAILY d iuretic 04/03/17 01/07/25 History doxycycline hyclate 20 mg tablet 20 mg PO BID infectio n 03/13/19 01/07/25 History metronidazole 0.75 % topical cream 1 applic topical DA [facility] skin health 07/16/19 01/07/25 History aspirin 81 mg tablet,delayed 81 mg PO [facility] heart health 01/28/21 01/07/25 History release (Rika Low Dose Aspirin) multivitamin 1 tab PO DAILY vitamin 05/1801/07/25 History pantoprazole 40 mg tablet,delayed 40 mg PO DAILY reflu x 05/03/22 01/07/25 History release d-mannose 1 ea PO DAILY 09/24/2301/07 History dupilumab 300 mg/2 mL subcutaneous 300 mg subcut .COMP LUIS skin health 09/24/23 Unknown History pen injector (Dupixent) lisinopril 5 mg tablet 5 mg PO DAILY blood pressure 09/24/23 Unknown History BACLOFEN SUPPOSITORY 1 supp OTHER DAILY CONSITPAT ION 01/08/25 Unknown History Lactobacillus acidophilus 10 80 mmu cells PO DAILY 01/07/25 History billion cell capsule (NewFlora) donepezil 5 mg tablet 10 mg PO DAILY 01/08/2512/25 History furosemide 20 mg tablet 20 mg PO DAILY 01/08/2512/25 History guaifenesin 600 mg tablet, 600 mg PO BID 01/08/2512/25 History extended release 12 hr (Mucinex) melatonin 5 mg tablet 5 mg PO QHS 01/08/25 5 History memantine 10 mg tablet 10 mg PO BID 01/08/25 History methenamine hippurate 1 gram tablet 1 g PO BID 5 01/07/25 History plecanatide 3 mg tablet (Trulance) 3 mg PO DAILY 01/08 Unknown History Held on 01/29/25. Instructions: reports being on hold 12/13/2024 polyethylene glycol 3350 17 17 g PO DAILY 01/08/25 History gram/dose oral powder (ClearLax) sertraline 25 mg tablet 25 mg PO DAILY 01/08/2512/25 History trazodone 100 mg tablet 100 mg PO QHS 01/08/2501/07 History triamcinolone acetonide 1 applic topical DAILY PRN i tching 01/08/25 01/07/25 History fosfomycin tromethamine 3 gram 1 packet PO QODAY 3 dos es #1 ea 01/10/25 Unknown Rx oral packet hydrochlorothiazide 12.5 mg tablet 12.5 mg PO DAILY Unknown History sulfamethoxazole 800 1 tab PO BID 01/29/25 Unknow n History mg-trimethoprim 160 mg tablet Allergy/AdvReac Type Severity Reaction Status Date / Time Iodinated Contrast Media Allergy Hives Verified 01/29/25 20:26 (CONTRASTS) azelaic acid (From Finacea) AdvReac Rash Verified 01/29/25 20:26 levofloxacin AdvReac Rash Verified 01/29/25 20:26 meloxicam (From Mobic) AdvReac Nausea Verified 01/29/25 20:26 misoprostol (From Cytotec) AdvReac Nausea Verified 01/29/25 20:26 nabumetone (From Relafen) AdvReac Nausea Verified 01/29/25 20:26 NSAIDS (Non-Steroidal AdvReac Nausea Verified 01/29/25 20:26 Anti-Inflamma sulfamethoxazole (From AdvReac Nausea Verified 01/29/25 20:26 Bactrim) terbinafine AdvReac Nausea Verified 01/29/25 20:26 trimethoprim (From Bactrim) AdvReac Nausea Verified 01/29/25 20:26 valdecoxib (From Bextra) AdvReac Other Verified 01/29/25 20:26 Family History Father Colon cancer Mother Cancer lung Hypertension Brother Cancer Surgical History History of cholecystectomy History of left inguinal hernia repair (~07/18/19) History of right inguinal hernia repair History of colonoscopy (~02/2019) history repair left thumb History of hemorrhoidectomy History of bilateral cataract extraction history ureteral stent insertion History of laparoscopic cholecystectomy history lap hiatal hernia repair Hx of repair of right rotator cuff Hx of repair of left rotator cuff history exacorporeal shock wave lithrotripsy Social History household members: spouse Smoking Status: Former smoker alcohol intake: current alcohol intake frequency: a few times a month substance use type: does not use ROS ROS ED ROS Narrative Review of systems positive for bilateral lower extremity weakness, and inabilityto stand. No feversor chills, no dysuria or hematuria. Denies other symptoms. EXAM Physical Exam Narrative Exam Narrative: Afebrile. Vital signs. Nontoxic-appearing. Regular rate and rhythm. Lungs clear to auscultation bilaterally. Abdomen soft nontender without guarding or rebound. Neurological examination nonfocal, nonlateralizing. He has full rangeof motion of his legs. He is able to lift each leg off the bed independently without difficulty. He appears neurovascularly intact distally. EHL intact bilaterally. Flexion extension at bilateral hips and knees intact. Good musclestrength. Const Vital Signs: 01/29/25 20:27 01/29/25 20:30 01/29/25 20:30 Temperature 99.1 F 99.1 F Temperature Source Oral Oral Pulse Rate 76 72 Respiratory Rate 18 16 Respiratory Effort Normal Non-Labored Respiratory Pattern Normal Blood Pressure 139/58 H 139/58 H Blood Pressure Mean 85 85 Pulse Ox 95 95 Oxygen Delivery Method Room Air Room Air 01/29/25 21:30 Temperature 98.7 F Temperature Source Oral Pulse Rate 69 Respiratory Rate 16 Respiratory Effort Respiratory Pattern Blood Pressure 134/56 H Blood Pressure Mean 82 Pulse Ox 100 Oxygen Delivery Method Room Air MDM MDM MDM Narrative Medical decision making narrative: In discussion with his , she is concerned that although he is on Bactrim, this may not be the right antibiotic. Differential diagnosis does include generalized weakness versus proximal muscle weakness versus UTI versus dehydration versus other electrolyte imbalance. I did review his chart and he was seen on 08 January, approximately 3 weeks ago. He had been admitted for 2 days. He did have MRI of the spine which I had checked for Dr. Baxter, and discussed the patient with the hospitalist for admission. He was discharged on the . I do not feel he needs any imaging as he did not fall, hit his head, and was uninjured. I will obtain a CBC BMP, and UA with urine culture. I reviewed his CBC and he has neutropenia 4.1 both comparedto prior laboratories, he usually is neutropenic. Hemoglobin stable at 11.7 with platelet count normal at 164. BMP is remarkable for glucose of 127 with normal sodium of 137 and potassium 3.9, BUN slightly elevated 23 with creatinine 1.39 consistent with acute kidney injury. He was bolused normal saline 1 L intravenously. Initial urinalysis shows occult blood of 25 with leukocyte esterase 100. Microanalysis is pending. Upon repeat examination, patient states that he is motivated for discharge and prefers to go home. Attempt will be made to ambulate him first. His microanalysis does show 10-25 WBCs, but there are 0 bacteria. I think this is probably pyuria from his previous UTI. He has been on Bactrim for the last few days. I did discuss with them a one-time dose of fosfomycin, but patient declined and stated he wanted to be discharged. He was able to ambulate with a walker. At this point in time, I feel he can be discharged to follow-up with his primary care provider. Return instructions to the emergency department werereviewed. Disposition is discharged home in stable condition. History & Record Review Discussion w/independent historian: Patient and Family Lab Data Attestation: I reviewed the patient's lab results. Labs: Laboratory Results - last 24 hr 01/29/25 01/29/25 20:48 21:47 WBC 4.1 L RBC 3.63 L Hgb 11.7 L Hct 36.0 L MCV 99.2 H MCH 32.2 H MCHC 32.5 RDW Std Deviation 47.2 H RDW Coeff of Ezequiel 12.9 Plt Count 164 MPV 9.2 Immature Gran % (Auto) 0.200 Neut % (Auto) 54.6 Lymph % (Auto) 31.1 [place] % (Auto) 13.2 H Eos % (Auto) 0.7 Baso % (Auto) 0.2 Absolute Neuts (auto) 2.2 Absolute Lymphs (auto) 1.27 Nucleated RBC % 0 Sodium 137 Potassium 3.9 Chloride 103 Carbon Dioxide 23.1 Anion Gap 11 BUN 23 H Creatinine 1.39 H Estim Creat Clear Calc 39.64 L Est GFR (MDRD) Non-Af 51 L BUN/Creatinine Ratio 16.8 Glucose 127 H Calcium 8.9 Urine Color Yellow Urine Clarity Sl. Cloudy Urine pH 6.0 Ur Specific [place] 1.015 Urine Protein 15 H Urine Glucose (UA) Normal Urine Ketones Negative Urine Occult Blood 25 H Urine Nitrite Negative Urine Bilirubin Negative Urine Urobilinogen Normal Ur Leukocyte Esterase 100 H Urine RBC 0-5 SEEN Urine WBC 10-25 SEEN Ur Squamous Epith Cells 0-5 SEEN Urine Bacteria 0 SEEN Urine Mucus 0 SEEN Discharge Plan Triage Chief Complaint: Weakness ED Provider: Pool Lopez Dx/Rx/DC Orders Clinical Impression: Bilateral leg weakness, Pyuria Instructions: ED Weakness Uncertain Cause Prescriptions: No Action metronidazole 0.75 % cream 1 applic TOPICAL DAILY acetaminophen 500 MG tablet 1,000 mg PO PRN hydrochlorothiazide 12.5 MG capsule 12.5 mg PO DAILY Patient Comments: doxycycline hyclate 20 mg tablet 20 mg PO BID Patient Comments: aspirin [Rika Low Dose Aspirin] 81 mg Tablet,Delayed Release (Dr/Ec) 81 mg PO QHS multivitamin Tablet 1 tab PO DAILY pantoprazole 40 mg Tablet,Delayed Release (Dr/Ec) 40 mg PO DAILY lisinopril 5 mg tablet 5 mg PO DAILY d-mannose Powder 1 ea PO DAILY Rx Instructions: 1/4 teaspoon on cereal each am. Dupixent Pen 300 mg/2 mL pen injector 300 mg subcut .COMPLEX Rx Instructions: 300 mg subcutaneously EVERY 6 WEEKS; donepezil 5 mg tablet 10 mg PO DAILY trazodone 100 mg tablet 100 mg PO QHS furosemide 20 mg tablet 20 mg PO DAILY memantine 10 mg tablet 10 mg PO BID methenamine hippurate 1 gram tablet 1 g PO BID sertraline 25 mg tablet 25 mg PO DAILY triamcinolone acetonide 1 applic topical DAILY PRN (Reason: itching) melatonin 5 mg tablet 5 mg PO QHS NewFlora 10 billion cell capsule 80 mmu cells PO DAILY polyethylene glycol 3350 [ClearLax] 17 gram/dose powder 17 g PO DAILY guaifenesin [Mucinex] 600 mg tablet extended release 12hr 600 mg PO BID Trulance 3 mg tablet 3 mg PO DAILY Patient Comments: ON 12/13/24 BACLOFEN SUPPOSITORY 1 supp OTHER DAILY fosfomycin tromethamine 3 gram packet 1 packet PO QODAY Qty: 1 0RF sulfamethoxazole-trimethoprim 800-160 mg tablet 1 tab PO BID hydrochlorothiazide 12.5 mg tablet 12.5 mg PO DAILY Primary Care Provider: Francisco Bahena Referrals: Francisco Bahena MD [Primary Care Provider] - 1-2 Days if not improving Activity Restrictions/Additional Instructions: Finish your prescription for Bactrim that you started a few days ago. Return with increased weakness, new or worsening symptoms. Keep having your physical therapy performed at home. Follow-up with your primary care provider. Your urine was sent for culture. You will receive a phone call if it is not sensitive to Bactrim. Print Language: Tanzanian Disposition Disposition: Home, Self Care What to do if you have Problems For any increased pain, shortness of breath, bleeding, nausea or vomiting, chestpain, or any unexpected problems, contact your Primary Care Provider. Call [facility] ([phone]) or report tothe closest Emergency Room. Call 911 if necessary. 01/29/25 2251 Cosigner Signature (if applicable): CC: Dr. Francisco Bahena MD ~ Signed [facility]05-06-2025 Discharge summary Author Pool Lopez [facility] Note Date/Time January 29, 2025 10:51p m [facility] Medical Records Department [address] [place] [address] Emergency Department Summary 01/29/25 MR#: [id number] Acct: [id number] Name: JAVIER BOND Rep #:[id number] : 1940 84 From: Pool Lopez MD PCP: Dr. Francisco Bahena MD Status:REG ER Location: ED HPI History of Present Illness Chief Complaint: Weakness Narrative Narrative: 84-year-old male presents via EMS with bilateral leg weakness that he experienced this evening. He had his relate history that they were seen int emergency department a few weeks ago. He was admitted because he had a UTI,and he was unable to walk and was very weak. He also had an MRI of the spine atthat time. They relate history that he was treated for urinary tract infection and had been given fosfomycin. He denies any recent problems with dysuria or symptoms, however he was seen by his primary care provider on Tuesday, and diagnosed with a UTI and started on Bactrim. Today, he had bilateral lower extremity weakness again even though he sees physical therapy at his house 2 or 3 times a week. He states that he usually tries to go down the stairs backwards. These and was folded up "like a pretzel" according to his . He denies actually falling, hitting his head, or injury. He was trying to get turned around so he could stand up but was unable to. Hence, his called the squad, and they had to help pick him up. He has not had any recent fevers or chills, no other symptoms except for the bilateral lower extremity weakness which has been ongoing. His states that whenever he has a urinary tract infection, this is his main symptom and he becomes weak. [facility] Medical History History of ESBL E. coli infection Anxiety Depression Kidney stones Kidney disease Former smoker Anxiety and depression HLD (hyperlipidemia) CKD (chronic kidney disease), stage II Dementia Left inguinal hernia Groin pain Inguinal hernia bilateral, non-recurrent Right inguinal hernia History of kidney stones History of hiatal hernia Abdominal pain BPH (benign prostatic hyperplasia) Arthritis History of back problems Hypertension Home Medications ?Medication ?Instructions ?Recorded ?Last Taken ?Type acetaminophen 500 mg tablet 1,000 mg PO PRN Pain 04/03 Unknown History hydrochlorothiazide 12.5 mg capsule 12.5 mg PO DAILY d iuretic 04/03/17 01/07/25 History doxycycline hyclate 20 mg tablet 20 mg PO BID infectio n 03/13/19 01/07/25 History metronidazole 0.75 % topical cream 1 applic topical DA [facility] skin health 07/16/19 01/07/25 History aspirin 81 mg tablet,delayed 81 mg PO QHS heart [facility] 01/28/21 01/07/25 History release (Rika Low Dose Aspirin) multivitamin 1 tab PO DAILY vitamin 05/1801/07/25 History pantoprazole 40 mg tablet,delayed 40 mg PO DAILY reflu x 05/03/22 01/07/25 History release d-mannose 1 ea PO DAILY 09/24/2301/07 History dupilumab 300 mg/2 mL subcutaneous 300 mg subcut .COMP LUIS skin health 09/24/23 Unknown History pen injector (Dupixent) lisinopril 5 mg tablet 5 mg PO DAILY blood pressure 09/24/23 Unknown History BACLOFEN SUPPOSITORY 1 supp OTHER DAILY CONSITPAT ION 01/08/25 Unknown History Lactobacillus acidophilus 10 80 mmu cells PO DAILY 01/07/25 History billion cell capsule (NewFlora) donepezil 5 mg tablet 10 mg PO DAILY 01/08/2512/25 History furosemide 20 mg tablet 20 mg PO DAILY 01/08/2512/25 History guaifenesin 600 mg tablet, 600 mg PO BID 01/08/2512/25 History extended release 12 hr (Mucinex) melatonin 5 mg tablet 5 mg PO QHS 01/08/25 5 History memantine 10 mg tablet 10 mg PO BID 01/08/25 History methenamine hippurate 1 gram tablet 1 g PO BID 5 01/07/25 History plecanatide 3 mg tablet (Trulance) 3 mg PO DAILY 01/08 Unknown History Held on 01/29/25. Instructions: reports being on hold 12/13/2024 polyethylene glycol 3350 17 17 g PO DAILY 01/08/25 History gram/dose oral powder (ClearLax) sertraline 25 mg tablet 25 mg PO DAILY 01/08/2512/25 History trazodone 100 mg tablet 100 mg PO QHS 01/08/2501/07 History triamcinolone acetonide 1 applic topical DAILY PRN i tching 01/08/25 01/07/25 History fosfomycin tromethamine 3 gram 1 packet PO QODAY 3 dos es #1 ea 01/10/25 Unknown Rx oral packet hydrochlorothiazide 12.5 mg tablet 12.5 mg PO DAILY Unknown History sulfamethoxazole 800 1 tab PO BID 01/29/25 Unknow n History mg-trimethoprim 160 mg tablet Allergy/AdvReac Type Severity Reaction Status Date / Time Iodinated Contrast Media Allergy Hives Verified 01/29/25 20:26 (CONTRASTS) azelaic acid (From Finacea) AdvReac Rash Verified 01/29/25 20:26 levofloxacin AdvReac Rash Verified 01/29/25 20:26 meloxicam (From Mobic) AdvReac Nausea Verified 01/29/25 20:26 misoprostol (From Cytotec) AdvReac Nausea Verified 01/29/25 20:26 nabumetone (From Relafen) AdvReac Nausea Verified 01/29/25 20:26 NSAIDS (Non-Steroidal AdvReac Nausea Verified 01/29/25 20:26 Anti-Inflamma sulfamethoxazole (From AdvReac Nausea Verified 01/29/25 20:26 Bactrim) terbinafine AdvReac Nausea Verified 01/29/25 20:26 trimethoprim (From Bactrim) AdvReac Nausea Verified 01/29/25 20:26 valdecoxib (From Bextra) AdvReac Other Verified 01/29/25 20:26 Family History Father Colon cancer Mother Cancer lung Hypertension Brother Cancer Surgical History History of cholecystectomy History of left inguinal hernia repair (~07/18/19) History of right inguinal hernia repair History of colonoscopy (~02/2019) history repair left thumb History of hemorrhoidectomy History of bilateral cataract extraction history ureteral stent insertion History of laparoscopic cholecystectomy history lap hiatal hernia repair Hx of repair of right rotator cuff Hx of repair of left rotator cuff history exacorporeal shock wave lithrotripsy Social History household members: spouse Smoking Status: Former smoker alcohol intake: current alcohol intake frequency: a few times a month substance use type: does not use ROS ROS ED ROS Narrative Review of systems positive for bilateral lower extremity weakness, and inabilityto stand. No fevers or chills, no dysuria or hematuria. Denies other symptoms. EXAM Physical Exam Narrative Exam Narrative: Afebrile. Vital signs. Nontoxic-appearing. Regular rate and rhythm. Lungs clear to auscultation bilaterally. Abdomen soft nontender without guarding or rebound. Neurological examination nonfocal, nonlateralizing. He has full rangeof motion of his legs. He is able to lift each leg off the bed independently without difficulty. He appears neurovascularly intact distally. EHL intact bilaterally. Flexion extension at bilateral hips and knees intact. Good musclestrength. Const Vital Signs: 01/29/25 20:27 01/29/25 20:30 01/29/25 20:30 Temperature 99.1 F 99.1 F Temperature Source Oral Oral Pulse Rate 76 72 Respiratory Rate 18 16 Respiratory Effort Normal Non-Labored Respiratory Pattern Normal Blood Pressure 139/58 H 139/58 H Blood Pressure Mean 85 85 Pulse Ox 95 95 Oxygen Delivery Method Room Air Room Air 01/29/25 21:30 Temperature 98.7 F Temperature Source Oral Pulse Rate 69 Respiratory Rate 16 Respiratory Effort Respiratory Pattern Blood Pressure 134/56 H Blood Pressure Mean 82 Pulse Ox 100 Oxygen Delivery Method Room Air MDM MDM MDM Narrative Medical decision making narrative: In discussion with his , she is concerned that although he is on Bactrim, this may not be the right antibiotic. Differential diagnosis does include generalized weakness versus proximal muscle weakness versus UTI versus dehydration versus other electrolyte imbalance. I did review his chart and he was seen on 08 January, approximately 3 weeks ago. He had been admitted for 2 days. He did have MRI of the spine which I had checked for Dr. Baxter, and discussed the patient with the hospitalist for admission. He was discharged on the . I do not feel he needs any imaging as he did not fall, hit his head, and was uninjured. I will obtain a CBC BMP, and UA with urine culture. I reviewed his CBC and he has neutropenia 4.1 both compared to prior laboratories, he usually is neutropenic. Hemoglobin stable at 11.7 with platelet count normal at 164. BMP is remarkable for glucose of 127 with normal sodium of 137 and potassium 3.9, BUN slightly elevated 23 with creatinine 1.39 consistent with acute kidney injury. He was bolused normal saline 1 L intravenously. Initial urinalysis shows occult blood of 25 with leukocyte esterase 100. Microanalysis is pending. Upon repeat examination, patient states that he is motivated for discharge and prefers to go home. Attempt will be made to ambulate him first. His microanalysis does show 10-25 WBCs, but there are 0 bacteria. I think this is probably pyuria from his previous UTI. He has been on Bactrim for the last few days. I did discuss with them a one-time dose of fosfomycin, but patient declined and stated he wanted to be discharged. He was able to ambulate with a walker. At this point in time, I feel he can be discharged to follow-up with his primary care provider. Return instructions to the emergency department werereviewed. Disposition is discharged home in stable condition. History & Record Review Discussion w/independent historian: Patient and Family Lab Data Attestation: I reviewed the patient's lab results. Labs: Laboratory Results - last 24 hr 01/29/25 01/29/25 20:48 21:47 WBC 4.1 L RBC 3.63 L Hgb 11.7 L Hct 36.0 L MCV 99.2 H MCH 32.2 H MCHC 32.5 RDW Std Deviation 47.2 H RDW Coeff of Ezequiel 12.9 Plt Count 164 MPV 9.2 Immature Gran % (Auto) 0.200 Neut % (Auto) 54.6 Lymph % (Auto) 31.1 [place] % (Auto) 13.2 H Eos % (Auto) 0.7 Baso % (Auto) 0.2 Absolute Neuts (auto) 2.2 Absolute Lymphs (auto) 1.27 Nucleated RBC % 0 Sodium 137 Potassium 3.9 Chloride 103 Carbon Dioxide 23.1 Anion Gap 11 BUN 23 H Creatinine 1.39 H Estim Creat Clear Calc 39.64 L Est GFR (MDRD) Non-Af 51 L BUN/Creatinine Ratio 16.8 Glucose 127 H Calcium 8.9 Urine Color Yellow Urine Clarity Sl. Cloudy Urine pH 6.0 Ur Specific [place] 1.015 Urine Protein 15 H Urine Glucose (UA) Normal Urine Ketones Negative Urine Occult Blood 25 H Urine Nitrite Negative Urine Bilirubin Negative Urine Urobilinogen Normal Ur Leukocyte Esterase 100 H Urine RBC 0-5 SEEN Urine WBC 10-25 SEEN Ur Squamous Epith Cells 0-5 SEEN Urine Bacteria 0 SEEN Urine Mucus 0 SEEN Discharge Plan Triage Chief Complaint: Weakness ED Provider: Pool Lopez Dx/Rx/DC Orders Clinical Impression: Bilateral leg weakness, Pyuria Instructions: ED Weakness Uncertain Cause Prescriptions: No Action metronidazole 0.75 % cream 1 applic TOPICAL DAILY acetaminophen 500 MG tablet 1,000 mg PO PRN hydrochlorothiazide 12.5 MG capsule 12.5 mg PO DAILY Patient Comments: doxycycline hyclate 20 mg tablet 20 mg PO BID Patient Comments: aspirin [Rika Low Dose Aspirin] 81 mg Tablet,Delayed Release (Dr/Ec) 81 mg PO QHS multivitamin Tablet 1 tab PO DAILY pantoprazole 40 mg Tablet,Delayed Release (Dr/Ec) 40 mg PO DAILY lisinopril 5 mg tablet 5 mg PO DAILY d-mannose Powder 1 ea PO DAILY Rx Instructions: 1/4 teaspoon on cereal each am. Dupixent Pen 300 mg/2 mL pen injector 300 mg subcut .COMPLEX Rx Instructions: 300 mg subcutaneously EVERY 6 WEEKS; donepezil 5 mg tablet 10 mg PO DAILY trazodone 100 mg tablet 100 mg PO QHS furosemide 20 mg tablet 20 mg PO DAILY memantine 10 mg tablet 10 mg PO BID methenamine hippurate 1 gram tablet 1 g PO BID sertraline 25 mg tablet 25 mg PO DAILY triamcinolone acetonide 1 applic topical DAILY PRN (Reason: itching) melatonin 5 mg tablet 5 mg PO QHS NewFlora 10 billion cell capsule 80 mmu cells PO DAILY polyethylene glycol 3350 [ClearLax] 17 gram/dose powder 17 g PO DAILY guaifenesin [Mucinex] 600 mg tablet extended release 12hr 600 mg PO BID Trulance 3 mg tablet 3 mg PO DAILY Patient Comments: ON 12/13/24 BACLOFEN SUPPOSITORY 1 supp OTHER DAILY fosfomycin tromethamine 3 gram packet 1 packet PO QODAY Qty: 1 0RF sulfamethoxazole-trimethoprim 800-160 mg tablet 1 tab PO BID hydrochlorothiazide 12.5 mg tablet 12.5 mg PO DAILY Primary Care Provider: Francisco Bahena Referrals: Francisco Bahena MD [Primary Care Provider] - 1-2 Days if not improving Activity Restrictions/Additional Instructions: Finish your prescription for Bactrim that you started a few days ago. Return with increased weakness, new or worsening symptoms. Keep having your physical therapy performed at home. Follow-up with your primary care provider. Your urine was sent for culture. You will receive a phone call if it is not sensitive to Bactrim. Print Language: Tanzanian Disposition Disposition: Home, Self Care What to do if you have Problems For any increased pain, shortness of breath, bleeding, nausea or vomiting, chestpain, or any unexpected problems, contact your Primary Care Provider. Call [facility] ([phone]) or report to the closest Emergency Room. Call 911 if necessary. 01/29/252250 <Electronically signed by Pool Lopez MD> Cosigner Signature (if applicable): CC: Dr. Francisco Bahena MD ~ Signed [facility] Work Phone: 1(570) 239-714605-05-2025 History of Present illness Narrative* Qasim Ansari, PT - 01/28/2025 1:31 PM EDT Program_ID:[id number] Access Code: [email or web address] URL: [email or web address] Date: 01-28-2025 Prepared By: Qasim Ansari Program Notes Exercises - Functional Diaphragm Breath and Lengthening - 2 x daily - 7 x weekly - 2 sets - 10 reps - Reclined Diaphragmatic Breathing - 2 x daily - 7 x weekly - 2 sets - 10 reps * Qasim Ansari PT - 01/28/2025 12:35 PM EDT Images from the original note were not included. Episode Visit Count: 1 Therapist That Will Accept/Oversee The Plan Of Care: Qasim Ansari Start of Care Date: 01/28/25 Onset Date: 01/29/24 Plan of Care Certification Date: 01/28/25 Next Certification Due Date: 04/22/25 Patient Identified by Name and Date of : Yes REHABILITATION AND SPORTS THERAPY PHYSICAL THERAPY EVALUATION PLAN OF CARE: Assessment: Javier Bond presents with chief complaint of chronic constipation and incomplete elimination that interferes with bowel function . The patient presents with impairments in coordination, independence in exercise, overall function, symptom management, and tissue tenderness. PROMIS (Patient- Reported Outcomes Measurement Information System) scores were reviewed and identified as a rehabilitation concern. Prognosis for therapy is Good due to: current objective clinical presentation . Implementation of baclofen suppositories likely contribute to minimal PFM restrictions noted todaywith external exam. Underlying chronic history of constipation, lumbopelvic pain and falls could contribute to onset of high PFM tone noted with anorectal manometry. The patient will benefit from skilled therapy services to meet the goals established for this plan of care as noted below. Goals for Episode of Care: established 01/28/25 Patient demonstrates independence and compliance with home exercise program. Patient displays improved range of motion, coordination, and muscle dynamics of pelvic floor as evidenced by the ability to lengthen without paradoxical contraction at least 80% of the time to normalize bowel function; reduce pelvic pain. Patient reports increased ability to fully empty bowels at least 80% of the time to normalize bowelfunction. Patient demonstrates ability to perform diaphragmatic breathing and relaxation practice independently to allow for decreased muscle tightness, decreased pain, and improved bladder/bowel function. Patient Goals: improve pelvic floor function to manage bowel function Time Frame for Goals and Treatment : 04/22/25 Planned Interventions, Frequency, and Duration: Current Frequency: 1x every other week Duration: 12 weeks Total Number of Visits Planned: 6 Planned Treatment Interventions: Therapeutic exercise (25737), Neuromuscular re- education (52838), Manual therapy (33646), Therapeutic activities (25340), Self- long-term management (72331) PLAN FOR NEXT VISIT: assess response to continued suppository use, DB and lengthening/squatty pottypositioning with BM, internal PF exam PRN to assess muscular coordination formally, ed on bladder urge suppression as time allows Patient demonstrates good understanding of plan of care and treatment. The above goals and plan of care were discussed and agreed upon by patient/family. SUBJECTIVE: Reports chronic constipation, worsening over past year to the point of hardened stool, inability toinitiate/eliminate stool without digital disimpaction. Reports chronic pain in back and pelvis. Recalls cracked rib on L side (believs from fall last Fall), tenderness in suprapubic region and RLE pain. Reports use of back brace for several months now to manage back pain and bilateral knee braces. History of spinal fusion in 2020 (3 levels per spouse though does not recall specific levels). When asked, gradual onset of suprapubic pain over past 20 years. History of kidney stones. Recent UTIs - x2, one after the other starting a few weeks ago, leading to LE weakness and fall at home. Hospitalized for 3 days. Reports ability to walk the stairs without issue before discharge. Patient Goals: improve pelvic floor function to manage bowel function Functional Limitations: bowel function Prior Level of Function: Independent without limitations Home Environment Patient Lives With: Spouse (Peter - present for todays exam) Intake Information: Prescription present Falls Interview: Two or more falls in the last year Falls Intervention: Instructed patient on safety and use of assistive device and awareness in regards to falls prevention. Pain: Pain Pain Location: Suprapubic, Abdomen Description: Tenderness Frequency: (with palpation) Abdominal quadrant pain location : Left Lower Quadrant PROMIS Scales 01/28/2025 07/04/2024 07/23/2023 Higher is Better Phys Func - T Score 23 (severe dysfunction) 36 (moderate dysfunction) Phys Func - Percentile 0 8 Self-Eff Symptom - T Score 37 (Low) 40 (Average) 39 (Low) Self-Eff Symptom - Percentile 10 16 14 Proxy-reported 01/28/2025 04/12/2023 03/01/2023 Lower is Better Pain Interference - T Score 63 (moderate) 59 (mild) 62 (moderate) Pain Interference - Percentile 10 18 12 T-scores: mean of general population = 50. 5 points is clinically meaningfully difference Percentiles provide an indication of how the patient's score ranks in relation to the general population. Higher percentile rankings indicate better function/quality of life. 50th percentile is the average of the general population and indicates half of respondents had a worse score. OBJECTIVE MEASURES WITH LEVEL OF FUNCTION: Pelvic Floor Urinary/Bowel History : Urinary History, Bowel History Urgency: Yes (upon standing) Urinary Incontinence: none Nocturia (times per night) : 0 Daytime Frequency (hours): 3-4x daily Fluid Intake: Water, Other beverage, Pop/Diet Pop Water : approx 5-6 glasses Pop/Diet Pop : 1-2 can of cola daily Other beverage : lemon juice 2x daily for kidney stones (2 glasses of lemonade) Difficulty evacuating / Excessive Straining: Yes (with baclofen suppositories has not had to use his fingers for last few days) Incomplete emptying: Yes (improved with baclofen suppositories though not complete) Bowel Movement Frequency: 1x daily- feels bowel urge Bowel Movement Consistency ([place]) : 4: Like a sausage or snake, smooth and soft, 5: Soft blobs with clear cut edges Fecal incontinence: No Bowel Aides / Supplements: miralax recently susspended due to stay in hospital Pelvic Floor Muscle Assessment Consent for pelvic assessment/testing and treatment: Patient was educated regarding pelvic floor physical therapy assessment/treatment which may include pelvic floor and girdle muscle assessment externally or internally (vaginal or rectal approach)., Patient verbalized consent for the above treatment approaches today. Patient understands they have control of the treatment and an opportunity to stop treatment at any time. (external assessment only) Pelvic Floor Muscle Assessment: PERFECT, Muscle Dynamics Power: (weak palpable ascent) Extra-pelvic muscle activity: Abdominal, Gluteals Range of Motion: Decreased Ability to Lengthen pelvic floor: Difficulty at first, but improves with cueing and practice (patient notes kinesthetic awareness with seated DB practice) Paradoxical Contraction: No Diaphragmatic Breathing : Fair (limited abdominal rise - accessory mm use) Pelvic Floor Manual Assessment External Pelvic Region Tenderness/ Hyperactivity - Trunk: Upper abdominals, Suprapubic, Iliacus Upper abdominals: Bilateral (mild tension, TTP) Suprapubic: (minimal tension, bladder urge) Iliacus: Left (minimal tension, TTP) Pelvic Floor Tenderness/Hyperactivity: Tested Externally in Tested Externally in: Supine/hooklying Levator Ani: (minimal restricitions, nontender) Pelvic Region Sensation: Grossly Intact Education: Education Learning Preferences: Demonstration, Explanation, Performance, Printed Materials Barriers: None Learning/educational needs: Home exercise program, Plan of Care Education Provided: Yes, see treatment interventions for education provided Education Provided To: Patient Education Mode/Type: Demonstration, Literature/Printed Materials, Explanation/Discussion, Performance Response to Education/Teach Back: States/Identifies, Return Demonstration, Requires Review/Additional Education TREATMENT: PT Treatment Interventions: Neuromuscular Re-Education, Self-Senior Care Management Evaluation Evaluation Neuromuscular Re-Education: 1: external coordination training in HL and seated for DB and lengthening 2: *reclined DB with lengthening through inhale/exhale 3: *Seated DB with lengthening through inhale/exhale 4: HEP 2x daily Skilled Intervention: Skilled judgment used to assess appropriate program for balance and coordination activity. Provided written instruction for home program to facilitate proper performance and compliance. Correct performance of home program was facilitated with verbal, visual, and tactile cueing. Patient education as noted. Self-Senior Care Management: 1: initiated education on bladder irritants encouraging patient to begin reducing coke to assess bladder urgency response (discussed appropriateness of remaining on daily lemonade due to MD recommendations for kidney stone management) 2: Education and handout given on toileting positioning for improved ease of bowel evacuation; PT recommendation of squatty potty purchase or utilizing step stool with similar height to promote effective squat position and facilitate pelvic floor relaxation and increased anorectal angle Skilled Intervention: Skilled judgment in the selection of proper modification for activity of daily living/home management based on clinical presentation, deficits, and needs. Educated the patient regarding recommendations and provided written instruction to facilitate compliance. Billing * Evaluation Low Complexity: 1 Unit Neuromuscular Re-Education Treatment Minutes: 20 Self-Care/Home Management Treatment Minutes: 13 Skilled Treatment Time Minutes (timed and untimed codes): 60 Total Session Time (minutes): 60 Session Start Time : 1235 Session Stop Time : 1335 Qasim Ansari PT [facility] NoteHNO ID: [id number] Author: QASIM ANSARI PT Service: ? Author Type: Physical Therapist Type: Progress Notes Filed: 01/28/2025 14:23 Note Text: Episode Visit Count: 1 Therapist That Will Accept/Oversee The Plan Of Care: Qasim Ansari Start of Care Date: 01/28/25 Onset Date: 01/29/24 Plan of Care Certification Date: 01/28/25 Next Certification Due Date: 04/22/25 Patient Identified by Name and Date of : Yes REHABILITATION AND SPORTS THERAPY PHYSICAL THERAPY EVALUATION PLAN OF CARE: Assessment: Javier Bond presents with chief complaint of chronic constipation and incomplete elimination that interferes with bowel function . The patient presents with impairments in coordination, independence in exercise, overall function, symptom management, and tissue tenderness. PROMIS? (Patient-Reported Outcomes Measurement Information System) scores were reviewed and identified as a rehabilitation concern. Prognosis for therapy is Good due to: current objective clinical presentation . Implementation of baclofen suppositories likely contribute to minimal PFM restrictions noted today with external exam. Underlying chronic history of constipation, lumbopelvic pain and falls could contribute to onset of high PFM tone noted with anorectal manometry. The patient will benefit from skilled therapy services to meet the goals established for this plan of care as noted below. Goals for Episode of Care: established 01/28/25 Patient demonstrates independence and compliance with home exercise program. Patient displays improved range of motion, coordination, and muscle dynamics of pelvic floor as evidenced by the ability to lengthen without paradoxical contraction at least 80% of the time to normalize bowel function; reduce pelvic pain. Patient reports increased ability to fully empty bowels at least 80% of the time to normalize bowel function. Patient demonstrates ability to perform diaphragmatic breathing and relaxation practice independently to allow for decreased muscle tightness, decreased pain, and improved bladder/bowel function. Patient Goals: improve pelvic floor function to manage bowel function Time Frame for Goals and Treatment : 04/22/25 Planned Interventions, Frequency, and Duration: Current Frequency: 1x every other week Duration: 12 weeks Total Number of Visits Planned: 6 Planned Treatment Interventions: Therapeutic exercise (48177), Neuromuscular re-education (96940), Manual therapy (22187), Therapeutic activities (31065), Self-long-term management (69377) PLAN FOR NEXT VISIT: assess response to continued suppository use, DB and lengthening/squatty potty positioning with BM, internal PF exam PRN to assess muscular coordination formally, ed on bladder urge suppression as time allows Patient demonstrates good understanding of plan of care and treatment. The above goals and plan of care were discussed and agreed upon by patient/family. SUBJECTIVE: Reports chronic constipation, worsening over past year to the point of hardened stool, inability to initiate/eliminate stool without digital disimpaction. Reports chronic pain in back and pelvis. Recalls cracked rib on L side (believs from fall last Fall), tenderness in suprapubic region and RLE pain. Reports use of back brace for several months now to manage back pain and bilateral knee braces. History of spinal fusion in 2020 (3 levels per spouse though does not recall specific levels). When asked, gradual onset of suprapubic pain over past 20 years. History of kidney stones. Recent UTIs - x2, one after the other starting a few weeks ago, leading to LE weakness and fall at home. Hospitalized for 3 days. Reports ability to walk the stairs without issue before discharge. Patient Goals: improve pelvic floor function to manage bowel function Functional Limitations: bowel function Prior Level of Function: Independent without limitations Home Environment Patient Lives With: Spouse (Peter - present for todays exam) Intake Information: Prescription present Falls Interview: Two or more falls in the last year Falls Intervention: Instructed patient on safety and use of assistive device and awareness in regards to falls prevention. Pain: Pain Pain Location: Suprapubic, Abdomen Description: Tenderness Frequency: (with palpation) Abdominal quadrant pain location : Left Lower Quadrant PROMIS Scales 01/28/2025 07/04/2024 07/23/2023 Higher is Better Phys Func - T Score 23 (severe dysfunction) 36 (moderate dysfunction) Phys Func - Percentile 0 8 Self-Eff Symptom - T Score 37 (Low) 40 (Average) 39 (Low) Self-Eff Symptom - Percentile 10 16 14 Proxy-reported 01/28/2025 04/12/2023 03/01/2023 Lower is Better Pain Interference - T Score 63 (moderate) 59 (mild) 62 (moderate) Pain Interference - Percentile 10 18 12 T-scores: mean of general population = 50. 5 points is clinically meaningfully difference Percentiles pr (more content not included)...[facility] 01-28-2025 Telephone encounter Note* Telephone Encounter - Yash Monroe MA - 01/28/2025 7:33 AM EDT Prescription Refill Information The patient has been identified by name and date of : Yes Caregiver verified no other encounters exist for this prescription request: Yes Caregiver confirmed with patient/requestor that no other refills are due, in the near future, with this provider at this time: Yes The last office visit in the department: 12/2024 Does the patient have a future office visit with this provider/department: Yes Requested Prescriptions Pending Prescriptions Disp Refills furosemide (LASIX) 20 mg tablet 90 tablet 1 Sig: Take 1 tablet by mouth once daily. Yash Monroe MA January 28, 2025 7:33 AM [facility]05-05-[facility] Miscellaneous Notes* Telephone Encounter - Yash Monroe MA - 01/28/2025 7:33 AM EDT Prescription Refill Information The patient has been identified by name and date of : Yes Caregiver verified no other encounters exist for this prescription request: Yes Caregiver confirmed with patient/requestor that no other refills are due, in the near future, with this provider at this time: Yes The last office visit in the department: 12/2024 Does the patient have a future office visit with this provider/department: Yes Requested Prescriptions Pending Prescriptions Disp Refills furosemide (LASIX) 20 mg tablet 90 tablet 1 Sig: Take 1 tablet by mouth once daily. Yash Monroe MA January 28, 2025 7:33 AM documented in this encounterCh[facility]05-[facility] Hospital Discharge instructions Additional Instructions Finish your prescription for Bactrim that you started a few days ago. Return with increased weakness, new or worsening symptoms. Keep having your physical therapy performed at home. Follow-up with your primary care provider. Your urine was sent for culture. You will receive a phone call if it is not sensitive to Bactrim.[facility] Work Phone: 1(286) 596-471405-02-2025 Telephone encounter Note* Telephone Encounter - Francisco Bahena MD - 01/25/2025 5:13 PM EDT Called and discussed UA and culture results with patient. Only oral meds the bacteria is sensitive to is bactrim and Cipro. Both listed as adverse affects but what it was is not known. Patient willing to try the bactrim. The following approved medication requests have been transmitted electronically. Requested Prescriptions Signed Prescriptions Disp Refills sulfamethoxazole-trimethoprim (BACTRIM DS) 800-160 mg per tablet 14 tablet 0 Sig: Take 1 tablet by mouth two times a day for 7 days. Francisco Bahena MD [facility] Miscellaneous Notes* Telephone Encounter - Francisco Bahena MD - 01/25/2025 5:13 PM EDT Called and discussed UA and culture results with patient. Only oral meds the bacteria is sensitive to is bactrim and Cipro. Both listed as adverse affects but what it was is not known. Patient willing to try the bactrim. The following approved medication requests have been transmitted electronically. Requested Prescriptions Signed Prescriptions Disp Refills sulfamethoxazole-trimethoprim (BACTRIM DS) 800-160 mg per tablet 14 tablet 0 Sig: Take 1 tablet by mouth two times a day for 7 days. Francisco Bahena MD documented in this encounterCh[facility]05-02-[facility]25 History of Present illness Narrative* Nik Omer RN - 01/25/2025 9:39 AM EDT Transitional Care Management (TCM) Follow-Up Note PCP Update / Actionable Items N/A - No specialty updates needed Patient Source: [id number] (OON) Discharge Outreach Summary: Peter states overall doing ok. Night terrors have returned making it difficult to go to sleep. States after discussing with pt states they have improved since sleeping in the recliner. Will continue to monitor and reach out to PCP if needed. No additional concerns today Contact: Contact made with patient: Yes Spoke to: Patient Validation: Validated the person spoken to is actively involved in the patient's care. The patient was identified by Name and Date of . I'd like to get an update on how you're doing since our last phone call. Is now a good time to talk? Yes Symptoms: Are you feeling about the same, better or worse since leaving the hospital? Better Weekly Outreach: 1st Outreach Medications: Do you have any questions about taking your medications, including which medications you should be on, or do you need refills on your medications? No Patient Questions / Concerns: Do you have any questions related to your discharge? No Appointment / TCM Follow-Up: Have you had a follow-up visit with your Primary Care Provider or Specialist since you were discharged? Yes Do you need any assistance with scheduling or changing your follow-up appointments? Patient alreadyhas an appointment scheduled EDUCATION: N/A Nik Omer RN January 25, 2025 10:03 AM documented in this encounterCh[facility]04-29-2025 Telephone encounter Note * Telephone Encounter - Yash Monroe MA - 01/22/2025 4:55 PM EDT Left detailed message for Beata regarding verbal order. Yash Monroe MA [facility]04-29-[facility] Miscellaneous Notes* Telephone Encounter - Yash Monroe MA - 01/22/2025 4:55 PM EDT Left detailed message for Beata regarding verbal order. Yash Monroe MA * Telephone Encounter - Francisco Bahena MD - 01/22/2025 4:50 PM EDT Okay to give verbal order that is ok for delay in start of OT. * Telephone Encounter - Melisa Clemons RN - 01/22/2025 1:35 PM EDT [facility] reports patient requested a delay in care until 02/04/25 for OT eval. Asking for verbal order for delay of care for OT evaluation. [phone] (can speak with Eve Khan). documented in this encounterCh[facility]04-29-2025 Telephone encounter Note * Telephone Encounter - Francisco Bahena MD - 01/22/2025 4:50 PM EDT Okay to give verbal order that is ok for delay in start of OT. [facility] Telephone encounter Note* Telephone Encounter - Melisa Clemons, RN - 01/22/2025 1:35 PM EDT [facility] reports patient requested a delay in care until 02/04/25 for OT eval. Asking for verbal order for delay of care for OT evaluation. [phone] (can speak with Eve orBeata). [facility]04-[facility] History of Present illness Narrative* Francisco Bahena MD - 01/21/2025 1:00 PM EDT Images from the original note were not included. Transitional Care Management TCM Eligibility Documentation Program: Transitional Care Management Status: Enrolled Effective Dates: 01/18/2025 - present Responsible Staff: Nik Omer RN Discharge date: 01/10/2025 (Program start) Date of initial contact: 01/18/2025 Initial contact Target status: Unsuccessful: Not enough call attempts within timeframe Provider Documentation Javier Bond is a 84 year old male here today for a follow up from recent hospitalization. I have reviewed the patient's hospital course including discharge summary, discharge medications , and follow up needs with the patient and any family members present at today's visit. Patient was sent home on on Fosfomycin 3g, 1 g every other day for 3 doses. HPI Patient was ambulated by PHYSICAL THERAPY up a flight of stairs prior to being discharged and felt he was stable to go home with [facility] and PHYSICAL THERAPY. jail and PHYSICAL THERAPY has been out to the home twice now. Since being home on 01/10/2025 he has not had any chest pain or shortness of breath with walking with his walker. Patient feels his strength is improved and wants to do more then what PHYSICAL THERAPY is letting him do. Per patient has had a quick turn around with the treatment. PHYSICAL EXAMINATION BP 112/64 Pulse 68 Resp 16 Wt 73.9 kg (163 lb) SpO2 98% BMI 22.73 kg/m GENERAL: well appearing, alert, in no acute distress HEART: regular rate and rhythm. No murmur, rubs or gallops. LUNGS: clear to auscultation, no wheezing, rhonchi, or crackles ABDOMEN: soft, non-tender, non-distended, no masses or organomegaly. No suprapubic tenderness. EXTREMITIES: no lower extremity edema. No skin discoloration. ASSESSMENT/PLAN: 1. History of recurrent UTIs - ICD9: V13.02, ICD10: Z87.440 (primary diagnosis) - will reach out to Dr. Coles to see if she can help facilitate a follow up appt with her since it appears the recent My Chart message from the patient's was not forwarded onto her from nursing or the PA. - patient does not have typical symptoms of a UTI to indicate Tx so question if he should be on some type of prevention to reduce the risk of UTI's that seem to progress very quickly to Sepsis for him. 2. Sepsis due to Escherichia coli without acute organ dysfunction (HCC) - ICD9: 038.42, 995.92, ICD10: A41.51 - resolved. Repeat UA and culture. 3. Elevated troponin I level - ICD9: 790.6, ICD10: R79.89 Check - ECHO - PERFLUTREN LIPID MICROSPHERES 1.1 MG/ML INJECTION IN NS 10 ML - SODIUM CHLORIDE 0.9 % (FLUSH) INJECTION SYRINGE If stable from 2021 will not proceed with further eval. 4. Lumbar radiculopathy - ICD9: 724.4, ICD10: M54.16 - stable no changes. Patient to continue with [facility] services until goals are met. I spent a total of 51 minutes on the date of the service which included preparing to see the patient, [id number] patient care, completing clinical documentation, performing a medically appropriate examination, counseling and educating the patient/family/caregiver and ordering medications, tests, or procedures. Francisco Bahena MD documented [facility] History of Present illness Narrative* Yash Monroe MA - 01/15/2025 4:16 PM EDT Scan on 01/11/2025 4:06 PM by ProviderLuz Maria PA-C: Discharge Summary Scan on 01/08/2025 5:25 PM by Luz Maria Roberts PA-C: Consultation - Emergency Medicine Scan on 01/08/2025 6:58 PM by Luz Maria Roberts PA-C: Consultation - Emergency Medicine Scan on 01/08/2025 7:34 PM by Provider, External, PA-C: Consultation - Emergency Medicine Scan on 01/08/2025 7:48 PM by Provider, PHYLLIS Loera-C: Consultation - Emergency Medicine Patient scheduled for TCM 01/21/2025 Yash Monroe MA documented in this encounterCh[facility]04-22-[facility]25 Telephone encounter Note * Telephone Encounter - Denise Salinas LPN - 01/15/2025 3:33 PM EDT FYI: Nubia with [facility] PT calls with POC. PT will see pt twice a week x 3 weeks for lower extremity strengthening, stair and gait training, balance and endurance. Denise Salinas LPN [facility]04-22-2025 Miscellaneous Notes* Telephone Encounter - Denise Salinas LPN - 01/15/2025 3:33 PM EDT FYI: Nubia with [facility] PT calls with POC. PT will see pt twice a week x 3 weeks for lower extremity strengthening, stair and gait training, balance and endurance. Denise Salinas LPN documented in this encounterCh[facility]04-22-2025 Telephone encounter Note * Telephone Encounter - Yash Monroe MA - 01/15/2025 10:02 AM EDT Patient's notified and voiced understanding. Yash Monroe MA [facility]04[facility] Miscellaneous Notes* Telephone Encounter - Yash Monroe MA - 01/15/2025 10:02 AM EDT Patient's notified and voiced understanding. Yash Monroe MA * Telephone Encounter - Francisco Bahena MD - 01/14/2025 5:25 PM EDT Let know script for trazodone sent in. * Telephone Encounter - aYsh Monroe MA - 01/14/2025 4:21 PM EDT Prescription Refill Information The patient has been identified by name and date of : Yes Caregiver verified no other encounters exist for this prescription request: Yes Caregiver confirmed with patient/requestor that no other refills are due, in the near future, with this provider at this time: Yes The last office visit in the department: 12/2024 Does the patient have a future office visit with this provider/department: Yes Requested Prescriptions Pending Prescriptions Disp Refills traZODone (DESYREL) 100 mg tablet 90 tablet 0 Sig: Take 1 tablet by mouth daily at bedtime. Patient should have 60 tablets left. Contacted pharmacy and they were given 90 tablets on 12/04/2024. Contacted and she said that the bottle is empty. She keeps track of his meds but has no idea where they are. She verified the bottle with date 12/04/2024. This is not an old bottle. She is asking for a short term will pay out of pocket because he needs for night terrors. I explained that the prescriber will not refill on lost medications. There are 60 tablets unaccounted for. She asked if we could send in note to provider. I told her no guarantee's as they don't normally writenew prescriptions especially controlled medications. EMILEE Campbell MA January 14, 2025 4:21 PM documented in this encounterChillicothe Hospital04-21-2025 Telephone encounter Note * Telephone Encounter - Francisco Bahena MD - 01/14/2025 5:25 PM EDT Let know script for trazodone sent in. [facility] Telephone encounter Note* Telephone Encounter - Francisco Bahena MD - 01/14/2025 4:58 PM EDT Noted. [facility] Miscellaneous Notes* Telephone Encounter - Francisco Bahena MD - 01/14/2025 4:58 PM EDT Noted. * Telephone Encounter - Yesika Pace RN - 01/14/2025 4:11 PM EDT Beni calling with [facility] Nursing to update PCP with the followin) Nursing Plan of Care: Will see pt 2 times per week for 1 week then 1 time per week for 3 weeks for disease and med mgmt. Pt discharged from hospital, DX of UTI. 2)Pt declined Hardware Supplies Sales Representative consult 3) Their system reports "Duplicate Therapy" for fosfomycin and methenamine, sertraline and trazodone, and hctz and furosemide. 4 Their system reports [id number]-interactions with methenamine along with other medications pt is on, along with Asprin and other medicatios. reports pt has been on asprin and doing fine on it. 5) [facility] ordered pt to resume lisinopril but per pt , Dr. Bahena's office told pt to hold this medication. 6) Pt's BP today 140/74. No fever. No call back needed. Pt has Hospital F/U with Dr. Bahena on 01/21. Yesika Pace, LISSETTE documented in this encounterChillicothe Hospital04-21-2025 Telephone encounter Note * Telephone Encounter - Yash Monroe MA - 01/14/2025 4:21 PM EDT Prescription Refill Information The patient has been identified by name and date of : Yes Caregiver verified no other encounters exist for this prescription request: Yes Caregiver confirmed with patient/requestor that no other refills are due, in the near future, with this provider at this time: Yes The last office visit in the department: 12/2024 Does the patient have a future office visit with this provider/department: Yes Requested Prescriptions Pending Prescriptions Disp Refills traZODone (DESYREL) 100 mg tablet 90 tablet 0 Sig: Take 1 tablet by mouth daily at bedtime. Patient should have 60 tablets left. Contacted pharmacy and they were given 90 tablets on 12/04/2024. Contacted and she said that the bottle is empty. She keeps track of his meds but has no idea where they are. She verified the bottle with date 12/04/2024. This is not an old bottle. She is asking for a short term will pay out of pocket because he needs for night terrors. I explained that the prescriber will not refill on lost medications. There are 60 tablets unaccounted for. She asked if we could send in note to provider. I told her no guarantee's as they don't normally writenew prescriptions especially controlled medications. EMILEE Campbell MA January 14, 2025 4:21 PM [facility] Telephone encounter Note* Telephone Encounter - Yesika Pace RN - 01/14/2025 4:11 PM EDT Beni calling with [facility] Nursing to update PCP with the followin) Nursing Plan of Care: Will see pt 2 times per week for 1 week then 1 time per week for 3 weeks for disease and med mgmt. Pt discharged from hospital, DX of UTI. 2)Pt declined Hardware Supplies Sales Representative consult 3) Their system reports "Duplicate Therapy" for fosfomycin and methenamine, sertraline and trazodone, and hctz and furosemide. 4 Their system reports [id number]-interactions with methenamine along with other medications pt is on, along with Asprin and other medicatios. reports pt has been on asprin and doing fine on it. 5) [facility] ordered pt to resume lisinopril but per pt , Dr. Bahena's office told pt to hold this medication. 6) Pt's BP today 140/74. No fever. No call back needed. Pt has Hospital F/U with Dr. Bahena on 01/21. Yesika Pace RN [facility]04-[facility] Telephone encounter Note* Telephone Encounter - Melisa Clemons RN - 01/14/2025 8:49 AM EDT Spoke with [facility]- and given provider's message below with verbalized understanding. Ashleyagreeable. [facility]04-[facility] Miscellaneous Notes* Telephone Encounter - Melisa Clemons RN - 01/14/2025 8:49 AM EDT Spoke with [facility]- and given provider's message below with verbalized understanding. Ashleyagreeable. * Telephone Encounter - Francisco Bahena MD - 01/11/2025 3:59 PM EDT Yes. The F2F needs completed by the provider who evaluated the patient and determined they meet criteria for HHC. * Telephone Encounter - Patrice Hartman RN - 01/11/2025 1:39 PM EDT [facility] called and reports Pt was discharged from [facility] yesterday for a UTI and elevated troponin's. She is asking if provider will follow for PT/OT/SN. documented in this encounterChillicothe Hospital04-21-2025 Telephone encounter Note * Telephone Encounter - Ann Thapa MA - 01/14/2025 8:32 AM EDT See other mychart sent to urology dept.- Angela Harry. [facility]04[facility] Miscellaneous Notes* Telephone Encounter - Ann Thapa MA - 01/14/2025 8:32 AM EDT See other mychart sent to urology dept.- Angela Harry. documented in this encounterChillicothe Hospital04-18-2025 Telephone encounter Note * Telephone Encounter - Francisco Bahena MD - 01/11/2025 3:59 PM EDT Yes. The F2F needs completed by the provider who evaluated the patient and determined they meet criteria for HHC. [facility]04[facility] History of Present illness Narrative* Patrice Hartman RN - 01/11/2025 1:43 PM EDT TRANSITION CARE MANAGEMENT (TCM) INITIAL CONTACT [employer] Outreach Provider Action/FYI: Just need HH. Initial contact with patient post discharge, spoke to spouse. Patient identified by name and . TRANSITION CARE MANAGEMENT INITIAL OUTREACH DOCUMENTATION: 01/11/2025 Date of Outreach: Outreach Attempt 1: Contact Made Date of Discharge 01/10/2025 SUMMARY: -Pt discharged from [facility] on 01/10/25. -Admitted for: UTI and elevated troponin's Do you have a hospital follow up appointment with your PCP? Appointment on with 1300. Yes. Remind patient of appointment date, time, and location. If not within 14 calendar days of discharge - please reschedule accordingly. MEDICATIONS: Many patients have questions or concerns about their medications once they are home. Were you prescribed any new medications? Yes, Fosfomycin tromethamine 3 g Q other day for 3 days Were you told to hold any medications? No Were any of your medications discontinued? No Do you have any questions about getting or taking your medications? No Your discharge instructions/After visit Summary (AVS) are important in guiding you through the recovery process. Is there anything I might help you understand? No Do you have all the necessary equipment and supplies at home? Yes Medical records from recent hospitalization: Care Everywhere documented in this encounterChillic[facility]04-18-2025 Telephone encounter Note * Telephone Encounter - Patrice Hartman RN - 01/11/2025 1:39 PM EDT Nubia [facility] called and reports Pt was discharged from [facility] yesterday for a UTI and elevated troponin's. She is asking if provider will follow for PT/OT/SN. [facility]04[facility] Telephone encounter Note* Telephone Encounter - Ronan Jean LPN - 01/11/2025 12:59 PM EDT Pt's Peter notified of Dr Bahena's message and instructions. She verbalizes understanding. Ronan Jean LPN [facility]04-18-2025 Miscellaneous Notes* Telephone Encounter - Ronan Jean LPN - 01/11/2025 12:59 PM EDT Pt's Peter notified of Dr Bahena's message and instructions. She verbalizes understanding. Ronan Jean LPN * Telephone Encounter - Francisco Bahena MD - 01/11/2025 12:56 PM EDT Please advise his to also reach out to his urologist office and advise them of his recent admission for a UTI * Telephone Encounter - Lynn Cornejo MA - 01/11/2025 10:07 AM EDT Call to , Peter notifying her of results and recommendations below from Provider. notes that pt was admitted at [facility] for a couple days and recently d/c for UTI and weakness. Wastaken by a squad. Reports he was feeling good when he was d/c home yesterday, but as of this morning he's not feeling well. Reports feeling weak, but has not ate breakfast yet and just woke up after sleeping in his own bed. Just came to the table to eat and start his day. Has been d/c home on abx taking every other day for 3 days. Advised I would route message to the Provider to review Hospital paperwork, but to update office if symptoms change or pt becomes worse. Advised to contact office and speak with FM Triage Nurse. Lynn Cornejo MA * Telephone Encounter - Francisco Bahena MD - 01/10/2025 6:25 PM EDT Let know the thyroid nodule is actually slightly smaller and at this time needs no further f/u. documented in this encounterChillic[facility]04-18-2025 Telephone encounter Note * Telephone Encounter - Francisco Bahena MD - 01/11/2025 12:56 PM EDT Please advise his to also reach out to his urologist office and advise them of his recent admission for a UTI [facility] Telephone encounter Note* Telephone Encounter - Lynn Cornejo MA - 01/11/2025 10:07 AM EDT Call to , Peter notifying her of results and recommendations below from Provider. notes that pt was admitted at [facility] for a couple days and recently d/c for UTI and weakness. Wastaken by a squad. Reports he was feeling good when he was d/c home yesterday, but as of this morning he's not feeling well. Reports feeling weak, but has not ate breakfast yet and just woke up after sleeping in his own bed. Just came to the table to eat and start his day. Has been d/c home on abx taking every other day for 3 days. Advised I would route message to the Provider to review Hospital paperwork, but to update office if symptoms change or pt becomes worse. Advised to contact office and speak with FM Triage Nurse. Lynn Cornejo MA [facility]04-17-2025 Telephone encounter Note* Telephone Encounter - Francisco Bahena MD - 01/10/2025 6:25 PM EDT Let know the thyroid nodule is actually slightly smaller and at this time needs no further f/u. [facility]04-17[facility]25 [facility] Medical Records Department [address] [place] [id number] Discharge Summary 01/10/25 1647 MR#: [id number] Acct: [id number] Name: JAVIER BOND Rep #: [id number] : 1940 84 From: Christoph Kilgore MD PCP: Dr. Francisco Bahena MD Status:DIS IN Location: [facility] [id number] Providers Date of Admission: 01/08/25 Primary Care Physician: Dr. Francisco Bahena MD Reason For Visit: UTI, ADULT FTT, ELEVATED TROP Diagnosis Discharge Diagnosis (1) Weakness of both lower extremities: Status: Acute Code(s): R29.898 - Other symptoms and signs involving the musculoskeletal system (2) Acute UTI: Status: Acute Code(s): N39.0 - Urinary tract infection, site not specified Medications at Discharge Home Medications acetaminophen 500 mg tablet 1,000 mg PO PRN Pain 04/03/17 hydrochlorothiazide 12.5 mg capsule 12.5 mg PO DAILY diuretic 04/03/17 doxycycline hyclate 20 mg tablet 20 mg PO BID infection 03/13/19 metronidazole 0.75 % topical cream 1 applic topical DAILY skin health 07/16/19 aspirin 81 mg tablet,delayed release (Rika Low Dose Aspirin) 81 mg PO QHS heart health 01/28/21 multivitamin 1 tab PO DAILY vitamin 05/18/21 pantoprazole 40 mg tablet,delayed release 40 mg PO DAILY reflux 05/03/22 d-mannose 1 ea PO DAILY 09/24/23 dupilumab 300 mg/2 mL subcutaneous pen injector (Edvert) 300 mg subcut .COMPLEX skin health 09/24/23 lisinopril 5 mg tablet 5 mg PO DAILY blood pressure 09/24/23 BACLOFEN SUPPOSITORY 1 supp OTHER DAILY CONSITPATION 01/08/25 Lactobacillus acidophilus 10 billion cell capsule (NewFlora) 80 mmu cells PO DAILY 01/08/25 donepezil 5 mg tablet 10 mg PO DAILY 01/08/25 furosemide 20 mg tablet 20 mg PO DAILY 01/08/25 guaifenesin 600 mg tablet, extended release 12 hr (Mucinex) 600 mg PO BID 01/08/25 melatonin 5 mg tablet 5 mg PO QHS 01/08/25 memantine 10 mg tablet 10 mg PO BID 01/08/25 methenamine hippurate 1 gram tablet 1 g PO BID 01/08/25 plecanatide 3 mg tablet (Trulance) 3 mg PO DAILY 01/08/25 polyethylene glycol 3350 17 gram/dose oral powder (ClearLax) 17 g PO DAILY 01/08/25 sertraline 25 mg tablet 25 mg PO DAILY 01/08/25 trazodone 100 mg tablet 100 mg PO QHS 01/08/25 triamcinolone acetonide topical DAILY PRN itching 01/08/25 fosfomycin tromethamine 3 gram oral packet 1 packet PO QODAY 3 doses #1 ea 01/10/25 Hospital Course Operations None Procedures None Summary of Care Provided Minutes Spent on Discharge: 35 Hospital Course: Per HPI: The patient is an 84 y/o M w/ PMHx: BPH with obstructive pathology, HTN, Chronic back pain s/p prior surgical intervention, CKD stage II per previous GFR trending, Chronic macrocytic anemia,, Chronic thrombocytopenia who presents to the [facility] ED on with history of onset significant weakness primarily lower extremities prior to ED arrival at his home while attempting to use his walker with difficulty even supporting himself yelling for his who came and found him still standing and helped him lowered to the ground without any injury but because he could not even get up EMS was called. He has chronic low back pain and notes that is unchanged since his prior fusion 4 years prior. He denies any recent illnesses. He does state that he chronically has some sciatic discomfort down his right lower extremity and mild weakness but this is similar to previous and unchanged. He denies any change in bowel or bladder function nor any saddle anesthesia or paresthesia. Workup in the ED included T97.9, heart rate 57, BP 116/70, respiratory rate 18, 100% on room air with most recent repeat vitals heart rate 55, BP 138/78, respiratory rate 17, 99% on room air, CBC with WBC 3.0, hemoglobin 0.7, MCV 98.9, platelet 146 with lymphopenia, BMP with BUN/creatinine 20/0.88, GFR 86, initial troponin 23, repeat delta 23 and 4- hour 26, urine cloudy, specifically 1.010, protein 15, occult blood 25, leukocyte Estrace 500 with urine RBCs 5-10, urine WBCs 50-100 with 3+ urine bacteria, MRI of the lumbar spine with postsurgical changes, dextroscoliosis, degenerative disc disease, plain film of the lumbar spine with status post laminectomy and fusion at L3-L4, L4-L5 and L5-S1 levels with prosthetic disc placement, dextroconvex scoliosis. From review of previous records 09/10/2023 patient did have an E. coli urinary tract infection with associated bacteremia at that time currently sensitive to Rocephin, only agent and was resistant to was ampicillin, and sensitive to Unasyn at that time. In the ED patient administered Rocephin 1 g IV x 1. Hospital Course: 1. Weakness and debility with adult failure to thrive secondary to ESBL E. coli UTI???84-year-old male presented to the hospital with bilateral lower extremity weakness. No concerns for stroke. He was found to have a contaminated UA which was sent for culture and demonstrated an ESBL E. co (morecontent not included)...[facility]04-17-2025 Consult note [facility] Medical Records Department [address] [place] [address] Counseling Note - Pharmacy 01/10/25 1431 MR#: [id number] Acct: [id number] Name: JAVIER BOND Rep #:[id number] : 1940 84 From: Yuridia Guaman PCP: Dr. Francisco Bahena MD Status:ADM IN Location: [place] [address] Pharmacy [facility] has performed discharge medication reconciliation and counseling for this patient. The patient's discharge medication list was reviewed for discrepancies and discrepancies were resolved. The patient was counseled on the following discharge medications and changes in medications for homegoing were reviewed. 1. FOSFOMYCIN The Reason for Use, instructions for use, and potential side effects were reviewed for all new medications. The patient's questions regarding all of their medications were answered. The patient was able to verbally demonstrate an understanding of their dischargemedications. Medications at Discharge Home Medications acetaminophen 500 mg tablet 1,000 mg PO PRN Pain 04/03/17 hydrochlorothiazide 12.5 mg capsule 12.5 mg PO DAILY diuretic 04/03/17 doxycycline hyclate 20 mg tablet 20 mg PO BID infection 03/13/19 metronidazole 0.75 % topical cream 1 applic topical DAILY skin health 07/16/19 aspirin 81 mg tablet,delayed release (Rika Low Dose Aspirin) 81 mg PO QHS hearthealth 01/28/21 multivitamin 1 tab PO DAILY vitamin 05/18/21 pantoprazole 40 mg tablet,delayed release 40 mg PO DAILY reflux 05/03/22 d-mannose 1 ea PO DAILY 09/24/23 dupilumab 300 mg/2 mL subcutaneous pen injector (Dupixent) 300 mg subcut .COMPLEX skin health 09/24/23 lisinopril 5 mg tablet 5 mg PO DAILY blood pressure 09/24/23 BACLOFEN SUPPOSITORY 1 supp OTHER DAILY CONSITPATION 01/08/25 Lactobacillus acidophilus 10 billion cell capsule (NewFlora) 80 mmu cells PO DAILY 01/08/25 donepezil 5 mg tablet 10 mg PO DAILY 01/08/25 furosemide 20 mg tablet 20 mg PO DAILY 01/08/25 guaifenesin 600 mg tablet, extended release 12 hr (Mucinex) 600 mg PO BID 01/08/25 melatonin 5 mg tablet 5 mg PO QHS 01/08/25 memantine 10 mg tablet 10 mg PO BID 01/08/25 methenamine hippurate 1 gram tablet 1 g PO BID 01/08/25 plecanatide 3 mg tablet (Trulance) 3 mg PO DAILY 01/08/25 polyethylene glycol 3350 17 gram/dose oral powder (ClearLax) 17 g PO DAILY 01/08/25 sertraline 25 mg tablet 25 mg PO DAILY 01/08/25 trazodone 100 mg tablet 100 mg PO QHS 01/08/25 triamcinolone acetonide topical DAILY PRN itching 01/08/25 fosfomycin tromethamine 3 gram oral packet 1 packet PO QODAY 3 doses #1 ea 01/10/25 01/10/251430 > Date _ Yuridia Richards Signature (if applicable): Date CC: ~ Signed [facility]04-17-2025 Consult note Author Yuridia Guaman [facility] Note Date/Time January 10, 2025 4:3 6pm [facility] Medical Records Department [address] [place] [address] Counseling Note - Pharmacy 01/10/25 143 MR#: [id number] Acct: [id number] Name: JAVIER BOND Rep #:[id number] : 1940 84 From: Yuridia Guaman PCP: Dr. Francisco Bahena MD Status:ADM IN Location: [facility] [id number] Pharmacy [facility] has performed discharge medication reconciliation and counseling for this patient. The patient's discharge medication list was reviewed for discrepancies and discrepancies were resolved. The patient was counseled on the following discharge medications and changes in medications for homegoing were reviewed. 1. FOSFOMYCIN The Reason for Use, instructions for use, and potential side effects were reviewed for all new medications. The patient's questions regarding all of their medications were answered. The patient was able to verbally demonstrate an understanding of their dischargemedications. Medications at Discharge Home Medications acetaminophen 500 mg tablet 1,000 mg PO PRN Pain 04/03/17 hydrochlorothiazide 12.5 mg capsule 12.5 mg PO DAILY diuretic 04/03/17 doxycycline hyclate 20 mg tablet 20 mg PO BID infection 03/13/19 metronidazole 0.75 % topical cream 1 applic topical DAILY skin health 07/16/19 aspirin 81 mg tablet,delayed release (Rika Low Dose Aspirin) 81 mg PO QHS hearthealth 01/28/21 multivitamin 1 tab PO DAILY vitamin 05/18/21 pantoprazole 40 mg tablet,delayed release 40 mg PO DAILY reflux 05/03/22 d-mannose 1 ea PO DAILY 09/24/23 dupilumab 300 mg/2 mL subcutaneous pen injector (Edvert) 300 mg subcut .COMPLEX skin health 09/24/23 lisinopril 5 mg tablet 5 mg PO DAILY blood pressure 09/24/23 BACLOFEN SUPPOSITORY 1 supp OTHER DAILY CONSITPATION 01/08/25 Lactobacillus acidophilus 10 billion cell capsule (NewFlora) 80 mmu cells PO DAILY 01/08/25 donepezil 5 mg tablet 10 mg PO DAILY 01/08/25 furosemide 20 mg tablet 20 mg PO DAILY 01/08/25 guaifenesin 600 mg tablet, extended release 12 hr (Mucinex) 600 mg PO BID 01/08/25 melatonin 5 mg tablet 5 mg PO QHS 01/08/25 memantine 10 mg tablet 10 mg PO BID 01/08/25 methenamine hippurate 1 gram tablet 1 g PO BID 01/08/25 plecanatide 3 mg tablet (Trulance) 3 mg PO DAILY 01/08/25 polyethylene glycol 3350 17 gram/dose oral powder (ClearLax) 17 g PO DAILY 01/08/25 sertraline 25 mg tablet 25 mg PO DAILY 01/08/25 trazodone 100 mg tablet 100 mg PO QHS 01/08/25 triamcinolone acetonide topical DAILY PRN itching 01/08/25 fosfomycin tromethamine 3 gram oral packet 1 packet PO QODAY 3 doses #1 ea 01/10/25 01/10/25 1431 <Electronically signed by Yuridia Guaman > Date _ Yuridia Guaman Cosigner Signature (if applicable): Date CC: ~ Signed [facility] Work Phone: 1([phone] 556-445904-17-2025 Discharge summary Author Christoph Kilgore [facility] Note Date/Time January 10, 2025 10: 44[facility] Medical Records Department [facility] [place] [address] Instructions for Home/Discharge Instructions 01/10/25 1039 MR#: [id number] Acct: [id number] Name: JAVIER BOND Rep #:[id number] : 1940 84 From: Christoph fofana MD PCP: Dr. Francisco Bahena MD Status:ADM IN Discharge Instructions Diet Discharge Diet: No restrictions DC O2, CPAP, BIPAP needs Home O2 Discharge instructions: No Dressing / Incision Discharge Activity: Return to Normal Activity Dressing / Incision Call your doctor if you observe: Fever of 101 or Higher, Shortness of breath, Dizziness, Fainting spells, Swelling in the ankles, Chest pain and Increased palpitations (irregular heartbeat) Follow Up Care Test Results: Test results from this visit will be discussed in further detail at your follow- up appointment, if applicable. Discharge Plan Admission Admit Date/Time: 01/08/25 18:51 Attending Provider: Christoph Kilgore Primary Care Provider: Francisco Bahena Consulting Providers: Keyana Aldana Discharge Orders/Prescriptions Prescriptions: New fosfomycin tromethamine 3 gram packet 1 packet PO QODAY Qty: 1 0RF Continued metronidazole 0.75 % cream 1 applic TOPICAL DAILY acetaminophen 500 MG tablet 1,000 mg PO PRN hydrochlorothiazide 12.5 MG capsule 12.5 mg PO DAILY Patient Comments: doxycycline hyclate 20 mg tablet 20 mg PO BID Patient Comments: aspirin [Rika Low Dose Aspirin] 81 mg Tablet,Delayed Release (Dr/Ec) 81 mg PO QHS multivitamin Tablet 1 tab PO DAILY pantoprazole 40 mg Tablet,Delayed Release (Dr/Ec) 40 mg PO DAILY lisinopril 5 mg tablet 5 mg PO DAILY d-mannose Powder 1 ea PO DAILY Rx Instructions: 09/29 teaspoon on cereal each am. Dupixent Pen 300 mg/2 mL pen injector 300 mg subcut .COMPLEX Rx Instructions: 300 mg subcutaneously EVERY 6 WEEKS; donepezil 5 mg tablet 10 mg PO DAILY trazodone 100 mg tablet 100 mg PO QHS furosemide 20 mg tablet 20 mg PO DAILY memantine 10 mg tablet 10 mg PO BID methenamine hippurate 1 gram tablet 1 g PO BID sertraline 25 mg tablet 25 mg PO DAILY triamcinolone acetonide topical DAILY PRN (Reason: itching) melatonin 5 mg tablet 5 mg PO QHS NewFlora 10 billion cell capsule 80 mmu cells PO DAILY polyethylene glycol 3350 [ClearLax] 17 gram/dose powder 17 g PO DAILY guaifenesin [Mucinex] 600 mg tablet extended release 12hr 600 mg PO BID Trulance 3 mg tablet 3 mg PO DAILY Patient Comments: ON 12/13/24 BACLOFEN SUPPOSITORY 1 supp OTHER DAILY Referrals / Follow Up: Francisco Bahena MD [Primary Care Provider] - Within 1 Week Disposition Disposition (needs filled in before D/C Order can be placed): Home, Self Care 01/10/25 1044<Electronically signed by Christoph Kilgore MD>Christoph Kilgore MD CC: Dr. Keyana Aldana MD; Dr. Francisco Bahena MD ~ Signed [facility] Work Phone: [phone]) 789-550904-17-2025 Discharge summary [facility] Medical Records Department [address] [place] [address] Instructions for Home/Discharge Instructions 01/10/25 1039 MR#: [id number] Acct: [id number] Name: JAVIER BOND Rep #:[id number] : 1940 84 From: Christoph fofana MD PCP: Dr. Francisco Bahena MD Status:ADM IN Discharge Instructions Diet Discharge Diet: No restrictions DC O2, CPAP, BIPAP needs Home O2 Discharge instructions: No Dressing / Incision Discharge Activity: Return to Normal Activity Dressing / Incision Call your doctor if you observe: Fever of 101 or Higher, Shortness of breath, Dizziness, Fainting spells, Swelling in the ankles, Chest pain and Increased palpitations (irregular heartbeat) Follow Up Care Test Results: Test results from this visit will be discussed in further detail at your follow- up appointment, if applicable. Discharge Plan Admission Admit Date/Time: 01/08/25 18:51 Attending Provider: Christoph Kilgore Primary Care Provider: Francisco Bahena Consulting Providers: Keyana Aldana Discharge Orders/Prescriptions Prescriptions: New fosfomycin tromethamine 3 gram packet 1 packet PO QODAY Qty: 1 0RF Continued metronidazole 0.75 % cream 1 applic TOPICAL DAILY acetaminophen 500 MG tablet 1,000 mg PO PRN hydrochlorothiazide 12.5 MG capsule 12.5 mg PO DAILY Patient Comments: doxycycline hyclate 20 mg tablet 20 mg PO BID Patient Comments: aspirin [Rika Low Dose Aspirin] 81 mg Tablet,Delayed Release (Dr/Ec) 81 mg PO QHS multivitamin Tablet 1 tab PO DAILY pantoprazole 40 mg Tablet,Delayed Release (Dr/Ec) 40 mg PO DAILY lisinopril 5 mg tablet 5 mg PO DAILY d-mannose Powder 1 ea PO DAILY Rx Instructions: 1/4 teaspoon on cereal each am. Dupixent Pen 300 mg/2 mL pen injector 300 mg subcut .COMPLEX Rx Instructions: 300 mg subcutaneously EVERY 6 WEEKS; donepezil 5 mg tablet 10 mg PO DAILY trazodone 100 mg tablet 100 mg PO QHS furosemide 20 mg tablet 20 mg PO DAILY memantine 10 mg tablet 10 mg PO BID methenamine hippurate 1 gram tablet 1 g PO BID sertraline 25 mg tablet 25 mg PO DAILY triamcinolone acetonide topical DAILY PRN (Reason: itching) melatonin 5 mg tablet 5 mg PO QHS NewFlora 10 billion cell capsule 80 mmu cells PO DAILY polyethylene glycol 3350 [ClearLax] 17 gram/dose powder 17 g PO DAILY guaifenesin [Mucinex] 600 mg tablet extended release 12hr 600 mg PO BID Trulance 3 mg tablet 3 mg PO DAILY Patient Comments: ON 12/13/24 BACLOFEN SUPPOSITORY 1 supp OTHER DAILY Referrals / Follow Up: Francisco Bahena MD [Primary Care Provider] - Within 1 Week Disposition Disposition (needs filled in before D/C Order can be placed): Home, Self Care 01/10/25 1044Christoph Kilgore MD CC: Dr. Keyana Aldana MD; Dr. Francisco Bahena MD ~ Signed [facility]04-16-2025 Progress note Author Christoph Kilgore [facility] Note Date/Time January 09, 2025 12: 33pm [facility] Medical Records Department [address] [place] [address] Progress Note - Hospitalist 01/09/25 1147 MR#: [id number] Acct: [id number] Name: JAVIER BOND Rep #:[id number] : 1940 84 From: Christoph fofana MD PCP: Dr. Francisco Bahena MD Status:ADM IN Location: [place] [address] Subjective Subjective Feels a bit better today, will have him evaluated by PT and OT given his weakness. Urine cultures are still pending given his positive UA, and there is a history of BPH the postvoid residual today was 156 Objective Data Objective Data Vital Signs: Vital Signs Temp Pulse Resp BP Pulse Ox O2 Del Method 98.4 F 69 16 103/56 L 96 Room Air 01/09/25 08:57 01/09/25 09:03 01/09/25 09:03 01/09/25 08:57 01/09/25 08:57 01/09/25 09:03 Oxygen Delivery Method Room Air Weight: 153 lb 14.122 oz Body Mass Index (BMI) 23.3 Intake & Output: Intake and Output for Last 24 Hours 01/08/25 01/09/25 01/10/25 03:59 03:59 03:59 Intake Total 50 / 50 1000 / 1000 Output Total 250 / 250 Balance 50 / 50 750 / 750 Lab / Micro Data 01/09/25 06:35 01/09/25 06:35 Labs: Laboratory Results - last 24 hr 01/08/25 11:49: WBC 3.0 L, RBC 3.58 L, Hgb 11.7 L, Hct 35.4 L, MCV 98.9 H, MCH 32.7 H, MCHC 33.1, RDW Std Deviation 49.3 H, RDW Coeff of Ezequiel 13.4, Plt Count 146 L, MPV 9.0, Immature Gran % (Auto) 0.300, Neut % (Auto) 66.8, Lymph % (Auto)22.9, [place] % (Auto) 8.6, Eos % (Auto) 0.7, Baso % (Auto) 0.7, Absolute Neuts (auto) 2.0, Absolute Lymphs (auto) 0.69 L, Nucleated RBC % 0, Sodium 138, Potassium 4.1, Chloride 103, Carbon Dioxide 26.8, Anion Gap 8, BUN 20 H, Creatinine 0.88, Estim Creat Clear Calc 67.31, Est GFR (MDRD) Non-Af 86, BUN/Creatinine Ratio 23.2 H, Glucose 98, Calcium 9.1, Magnesium 2.0, Troponin T High Sens 23 H 01/08/25 12:54: Urine Color Yellow, Urine Clarity Sl. Cloudy, Urine pH 7.0, Ur Specific [place] 1.010, Urine Protein 15 H, Urine Glucose (UA) Normal, Urine Ketones Negative, Urine Occult Blood 25 H, Urine Nitrite Negative, Urine Bilirubin Negative, Urine Urobilinogen Normal, Ur Leukocyte Esterase 500 H, Urine RBC 5-10 SEEN, Urine WBC 50-100 SEEN, Ur Squamous Epith Cells 0-5 SEEN, Urine Bacteria 3+, Urine Mucus 0 SEEN 01/08/25 13:54: Troponin T Hi Sens 2 Hr 23 H 01/08/25 15:45: Troponin T Hi Sens 4Hr 26 H 01/09/25 06:35: WBC 4.2 L, RBC 3.43 L, Hgb 11.0 L, Hct 33.5 L, MCV 97.7 H, MCH 32.1 H, MCHC 32.8, RDW Std Deviation 48.8 H, RDW Coeff of Ezequiel 13.5, Plt Count 153, MPV 9.5, Immature Gran % (Auto) 0.200, Neut % (Auto) 57.8, Lymph % (Auto) 32.3, [place] % (Auto) 8.3, Eos % (Auto) 0.7, Baso % (Auto) 0.7, Absolute Neuts (auto) 2.5, Absolute Lymphs (auto) 1.37, Nucleated RBC % 0, Sodium 141, Potassium 4.0, Chloride 108, Carbon Dioxide 24.0, Anion Gap 9, BUN 22 H, Creatinine 0.83, Estim Creat Clear Calc 66.39, Est GFR (MDRD) Non-Af 87, BUN/Creatinine Ratio 25.9 H, Glucose 84, Calcium 8.6, Total Bilirubin 0.48, AST 20, ALT 15, Alkaline Phosphatase 52, Total Protein 5.2 L, Albumin 3.6, Globulin 1.7 L, Albumin/Globulin Ratio 2.1, Vitamin B12 592 Micro: Microbiology 01/08/25 12:54 Interface Orders Urine Culture - Preliminary GNR lactose spring maker Radiography Diagnostic Testing: Radiology Impression Lumbar Spine MRI 01/08/25 10:53 IMPRESSION: Postsurgical changes, dextroscoliosis, and degenerative disc disease as described above. Reading Location: [facility] Lumbar Spine X-Ray 01/08/25 11:50 IMPRESSION: ADVANCED DEGENERATIVE CHANGES OF THE LUMBAR SPINE. Status post laminectomy and fusion at the L3-L4, L4-L5 and L5-S1 levels with prosthetic disc placement. Dextroconvex scoliosis. [facility] Rhythm Strip Rhythm Strip: Sinus Rhythm Rate: 57 Ectopy: None Physical Exam Narrative General: Alert, Oriented x3, Cooperative, No apparent distress HEENT: Atraumatic, PERRLA, EOMI, Normocephalic Oral: Moist Mucosa Neck: Supple, No JVD Lungs: Diminished, Normal air movement, No rhonchi, No wheeze, No rales Cardiovascular: Regular rate, Regular Rhythm, Normal S1, Normal S2, No murmurs Abdomen: Soft, Non Tender, Non-Distended, No Hepato-splenomegaly Extremities: No edema, Capillary Refill Less than 3 Seconds Skin: No rashes, No breakdown Musculoskeletal: No Tenderness to Palpation of Joints or Extremities Neurological: No focal neurological deficits, Motor Exam 5/5 strength throughout, Sensory exam intact to light touch and pain Psych/Mental Status: Normal Affect, Appropriate Assessment & Plan Assessment/Plan (1) Weakness of both lower extremities: (2) Acute UTI: PLAN: Plan 1. Weakness and debility with adult failure to thrive secondary to UTI ? Urine cultures pending ? Continue with antibiotics ? Postvoid residual does not demonstrate significant BPH though he has had issues with retention in the past states that he was on Flomax and finasteride which were discontinued by his urologist ? PT/OT ? She had indeterminate cardiac enzymes that are not of significance 2. Essential HTN/HLD ? Blood pressure stable ? Can resume his home medications ? Will monitor make adjustments as necessary 3. Anxiety/depression/dementia ? Continue with his home medications ? Stable 4. GERD ? Stable ? Continue with PPI 5. Chronic anemia and thrombocytopenia ? Outpatient management and follow-up DVT: Lovenox Charges/Coding Visit Charges Inpatient E&M: 21902 Subs Hosp L2 01/09/25 1233 <Electronically signed by Christoph Kilgore MD> Cosigner Signature (if applicable): CC: ~ Signed [facility] Work Phone: [phone]) 176-191804-16-2025 Progress note [facility] Medical Records Department [address] [facility] [place] [address] Progress Note - Hospitalist 01/09/25 1147 MR#: [id number] Acct: [id number] Name: JAVIER BOND Rep #:[id number] : 1940 84 From: Christoph fofana MD PCP: Dr. Francisco Bahena MD Status:ADM IN Location: [place] [address] Subjective Subjective Feels a bit better today, will have him evaluated by PT and OT given his weakness. Urine cultures are still pending given his positive UA, and there is a history of BPH the postvoid residual today was 156 Objective Data Objective Data Vital Signs: Vital Signs Temp Pulse Resp BP Pulse Ox O2 Del Method 98.4 F 69 16 103/56 L 96 Room Air 01/09/25 08:57 01/09/25 09:03 01/09/25 09:03 01/09/25 08:57 01/09/25 08:57 01/09/25 09:03 Oxygen Delivery Method Room Air Weight: 153 lb 14.122 oz Body Mass Index (BMI) 23.3 Intake & Output: Intake and Output for Last 24 Hours 01/08/25 01/09/25 01/10/25 03:59 03:59 03:59 Intake Total 50 / 50 1000 / 1000 Output Total 250 / 250 Balance 50 / 50 750 / 750 Lab / Micro Data 01/09/25 06:35 01/09/25 06:35 Labs: Laboratory Results - last 24 hr 01/08/25 11:49: WBC 3.0 L, RBC 3.58 L, Hgb 11.7 L, Hct 35.4 L, MCV 98.9 H, MCH 32.7 H, MCHC 33.1, RDW Std Deviation 49.3 H, RDW Coeff of Ezequiel 13.4, Plt Count 146 L, MPV 9.0, Immature Gran % (Auto) 0.300, Neut % (Auto) 66.8, Lymph % (Auto)22.9, [place] % (Auto) 8.6, Eos % (Auto) 0.7, Baso % (Auto) 0.7, Absolute Neuts (auto) 2.0, Absolute Lymphs (auto) 0.69 L, Nucleated RBC % 0, Sodium 138, Potassium 4.1, Chloride 103, Carbon Dioxide 26.8, Anion Gap 8, BUN 20 H, Creatinine 0.88, Estim Creat Clear Calc 67.31, Est GFR (MDRD) Non-Af 86, BUN/Creatinine Ratio 23.2 H, Glucose 98, Calcium 9.1, Magnesium 2.0, Troponin T High Sens 23 H 01/08/25 12:54: Urine Color Yellow, Urine Clarity Sl. Cloudy, Urine pH 7.0, Ur Specific [place] 1.010, Urine Protein 15 H, Urine Glucose (UA) Normal, Urine Ketones Negative, Urine Occult Blood 25 H, Urine Nitrite Negative, Urine Bilirubin Negative, Urine Urobilinogen Normal, Ur Leukocyte Esterase 500 H, Urine RBC 5-10 SEEN, Urine WBC 50-100 SEEN, Ur Squamous Epith Cells 0-5 SEEN, Urine Bacteria 3+, Urine Mucus 0 SEEN 01/08/25 13:54: Troponin T Hi Sens 2 Hr 23 H 01/08/25 15:45: Troponin T Hi Sens 4Hr 26 H 01/09/25 06:35: WBC 4.2 L, RBC 3.43 L, Hgb 11.0 L, Hct 33.5 L, MCV 97.7 H, MCH 32.1 H, MCHC 32.8, RDW Std Deviation 48.8 H, RDW Coeff of Ezequiel 13.5, Plt Count 153, MPV 9.5, Immature Gran % (Auto) 0.200, Neut % (Auto) 57.8, Lymph % (Auto) 32.3, [place] % (Auto) 8.3, Eos % (Auto) 0.7, Baso % (Auto) 0.7, Absolute Neuts (auto) 2.5, Absolute Lymphs (auto) 1.37, Nucleated RBC % 0, Sodium 141, Potassium 4.0,Chloride 108, Carbon Dioxide 24.0, Anion Gap 9, BUN 22 H, Creatinine 0.83, Estim Creat Clear Calc 66.39, Est GFR (MDRD) Non-Af 87, BUN/Creatinine Ratio 25.9 H, Glucose 84, Calcium 8.6, Total Bilirubin 0.48, AST 20, ALT 15, Alkaline Phosphatase 52, Total Protein 5.2 L, Albumin 3.6, Globulin 1.7 L, Albumin/Globulin Ratio 2.1, Vitamin B12 592 Micro: Microbiology 01/08/25 12:54 Interface Orders Urine Culture - Preliminary GNR lactose spring maker Radiography Diagnostic Testing: Radiology Impression Lumbar Spine MRI 01/08/25 10:53 IMPRESSION: Postsurgical changes, dextroscoliosis, and degenerative disc disease as described above. Reading Location: [facility] Lumbar Spine X-Ray 01/08/25 11:50 IMPRESSION: ADVANCED DEGENERATIVE CHANGES OF THE LUMBAR SPINE. Status post laminectomy and fusion at the L3-L4, L4-L5 and L5-S1 levels with prosthetic disc placement. Dextroconvex scoliosis. Reading Location: [facility] Rhythm Strip Rhythm Strip: Sinus Rhythm Rate: 57 Ectopy: None Physical Exam Narrative General: Alert, Oriented x3, Cooperative, No apparent distress HEENT: Atraumatic, PERRLA, EOMI, Normocephalic Oral: Moist Mucosa Neck: Supple, No JVD Lungs: Diminished, Normal air movement, No rhonchi, No wheeze, No rales Cardiovascular: Regular rate, Regular Rhythm, Normal S1, Normal S2, No murmurs Abdomen: Soft, Non Tender, Non-Distended, No Hepato-splenomegaly Extremities: No edema, Capillary Refill Less than 3 Seconds Skin: No rashes, No breakdown Musculoskeletal: No Tenderness to Palpation of Joints or Extremities Neurological: No focal neurological deficits, Motor Exam 5/5 strength throughout, Sensory exam intact to light touch and pain Psych/Mental Status: Normal Affect, Appropriate Assessment & Plan Assessment/Plan (1) Weakness of both lower extremities: (2) Acute UTI: PLAN: Plan 1. Weakness and debility with adult failure to thrive secondary to UTI ? Urine cultures pending ? Continue with antibiotics ? Postvoid residual does not demonstrate significant BPH though he has had issues with retention inthe past states that he was on Flomax and finasteride which were discontinued by his urologist ? PT/OT ? She had indeterminate cardiac enzymes that are not of significance 2. Essential HTN/HLD ? Blood pressure stable ? Can resume his home medications ? Will monitor make adjustments as necessary 3. Anxiety/depression/dementia ? Continue with his home medications ? Stable 4. GERD ? Stable ? Continue with PPI 5. Chronic anemia and thrombocytopenia ? Outpatient management and follow-up DVT: Lovenox Charges/Coding Visit Charges Inpatient E&M: 70207 Subs Hosp L2 01/09/25 1233 Cosigner Signature (if applicable): CC: ~ Signed [facility]04-15-2025 History and physical note Author Keyana Aldana [facility] Note Date/Time January 08, 2025 7:2 7pm [facility] Medical Records Department [address] [place] [address] H&P Exam - Hospitalist 01/08/25 1851 MR#: [id number] Acct: [id number] Name: JAVIER BOND Rep #:[id number] : 1940 84 From: Keyana Aldana MD PCP: Dr. Francisco Bahena MD Status:REG ER Location: ED HPI - General General Date of Admission: 01/08/25 Date of Service: 01/08/25 Chief Complaint: Weakness, debility. 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 He has chronic low back pain and notes that is unchanged since his prior fusion 4 years prior. He denies any recent illnesses. He does state that he chronically has some sciatic discomfort down his right lower extremity and mild weakness but this is similar to previous and unchanged. He denies any change inbowel or bladder function nor any saddle anesthesia or paresthesia. Workup in the ED included T97.9, heart rate 57, BP 116/70, respiratory rate 18, 100% on room air with most recent repeat vitals heart rate 55, BP 138/78, respiratory rate 17, 99% on room air, CBC with WBC 3.0, hemoglobin 0.7, MCV 98.9, platelet 146 with lymphopenia, BMP with BUN/creatinine 20/0.88, GFR 86, initial troponin 23, repeat delta 23 and 4-hour 26, urine cloudy, specifically 1.010, protein 15,occult blood 25, leukocyte Estrace 500 with urine RBCs 5-10, urine WBCs 50-100 with 3+ urine bacteria, MRI of the lumbar spine with postsurgical changes, dextroscoliosis, degenerative disc disease, plain film of the lumbar spine with status post laminectomy and fusion at L3-L4, L4-L5 and L5-S1 levels with prosthetic disc placement, dextroconvex scoliosis. From review of previous records 09/10/2023 patient did have an E. coli urinary tract infection with associated bacteremia at that time currently sensitive to Rocephin, only agent and was resistant to was ampicillin, and sensitive to Unasyn at that time. In the ED patient administered Rocephin 1 g IV x 1. PFSH Medical History Anxiety and depression HLD (hyperlipidemia) CKD (chronic kidney disease), stage II Dementia Left inguinal hernia Groin pain Inguinal hernia bilateral, non-recurrent Right inguinal hernia History of kidney stones History of hiatal hernia Abdominal pain BPH (benign prostatic hyperplasia) Arthritis History of back problems Hypertension Medical History no medical history Home Medications ?Medication ?Instructions ?Recorded ?Last Taken ?Type acetaminophen 500 mg tablet 1,000 mg PO PRN Pain 04/03 Unknown History hydrochlorothiazide 12.5 mg capsule 12.5 mg PO DAILY d iuretic 04/03/17 01/07/25 History doxycycline hyclate 20 mg tablet 20 mg PO BID infectio n 03/13/19 01/07/25 History metronidazole 0.75 % topical cream 1 applic topical DA CASSIE skin health 07/16/19 01/07/25 History aspirin 81 mg tablet,delayed 81 mg PO QHS heart health 01/28/21 01/07/25 History release (Rika Low Dose Aspirin) multivitamin 1 tab PO DAILY vitamin 05/1801/07/25 History pantoprazole 40 mg tablet,delayed 40 mg PO DAILY reflu x 05/03/22 01/07/25 History release d-mannose 1 ea PO DAILY 09/24/2301/07 History dupilumab 300 mg/2 mL subcutaneous 300 mg subcut .COMP LUIS skin health 09/24/23 Unknown History pen injector (Dupixent) lisinopril 5 mg tablet 5 mg PO DAILY blood pressure 09/24/23 Unknown History Held on 01/08/25. Instructions: Ordered BACLOFEN SUPPOSITORY 1 supp OTHER DAILY CONSITPAT ION 01/08/25 Unknown History Lactobacillus acidophilus 10 80 mmu cells PO DAILY 01/07/25 History billion cell capsule (NewFlora) donepezil 5 mg tablet 10 mg PO DAILY 01/08/2512/25 History furosemide 20 mg tablet 20 mg PO DAILY 01/08/2512/25 History guaifenesin 600 mg tablet, 600 mg PO BID 01/08/2512/25 History extended release 12 hr (Mucinex) melatonin 5 mg tablet 5 mg PO QHS 01/08/25 5 History memantine 10 mg tablet 10 mg PO BID 01/08/25 History methenamine hippurate 1 gram tablet 1 g PO BID 5 01/07/25 History plecanatide 3 mg tablet (Trulance) 3 mg PO DAILY 01/08 Unknown History Held on 01/08/25. Instructions: MD Ordered polyethylene glycol 3350 17 17 g PO DAILY 01/08/25 History gram/dose oral powder (ClearLax) sertraline 25 mg tablet 25 mg PO DAILY 01/08/2512/25 History trazodone 100 mg tablet 100 mg PO QHS 01/08/2501/07 History triamcinolone acetonide topical DAILY PRN itching 01/07/25 History Allergy/AdvReac Type Severity Reaction Status Date / Time Iodinated Contrast Media Allergy Hives Verified 01/08/25 10:39 (CONTRASTS) azelaic acid (From Finacea) AdvReac Rash Verified 01/08/25 10:39 levofloxacin AdvReac Rash Verified 01/08/25 10:39 meloxicam (From Mobic) AdvReac Nausea Verified 01/08/25 10:39 misoprostol (From Cytotec) AdvReac Nausea Verified 01/08/25 10:39 nabumetone (From Relafen) AdvReac Nausea Verified 01/08/25 10:39 NSAIDS (Non-Steroidal AdvReac Nausea Verified 01/08/25 10:39 Anti-Inflamma sulfamethoxazole (From AdvReac Nausea Verified 01/08/25 10:39 Bactrim) terbinafine AdvReac Nausea Verified 01/08/25 10:39 trimethoprim (From Bactrim) AdvReac Nausea Verified 01/08/25 10:39 valdecoxib (From Bextra) AdvReac Other Verified 01/08/25 10:39 Family History Father Colon cancer Mother Cancer lung Hypertension Brother Cancer Family History no significant family his Surgical History History of left inguinal hernia repair (~07/18/19) History of right inguinal hernia repair History of colonoscopy (~02/2019) history repair left thumb History of hemorrhoidectomy History of bilateral cataract extraction history ureteral stent insertion History of laparoscopic cholecystectomy history lap hiatal hernia repair Hx of repair of right rotator cuff Hx of repair of left rotator cuff history exacorporeal shock wave lithrotripsy Surgical History no surgical history Social History household members: spouse Smoking Status: Never smoker alcohol intake: current alcohol intake frequency: a few times a month substance use type: does not use ROS ROS Narrative Admission Review of Systems: CONSTITUTIONAL: No weight loss, fever, chills, + weakness or fatigue. HEENT: Eyes: No visual loss, blurred vision, double vision or yellow sclerae. Ears, Nose, Throat: No hearing loss, sneezing, congestion, runny nose or sore throat. SKIN: No rash or itching, lesions, wounds. CARDIOVASCULAR: No chest pain, chest pressure or chest discomfort, palpitations,edema, orthopnea, syncopal events. RESPIRATORY: No shortness of breath, cough or sputum, wheezing, hemoptysis. GASTROINTESTINAL: No anorexia, nausea, vomiting or diarrhea, abdominal pain, melena, BRBPR. GENITOURINARY: + Increased frequency, history of retention. No dysuria, urgency. NEUROLOGICAL: + Generalized weakness. No headache, dizziness, syncope, paralysis, ataxia, numbness or tingling in the extremities, focal weakness, change in bowel or bladder control, seizure. MUSCULOSKELETAL: + muscle, back pain, joint pain or stiffness. HEMATOLOGIC: + Chronic anemia, easy bleeding/bruising. LYMPHATICS: No enlarged nodes. No history of splenectomy. PSYCHIATRIC: + History of anxiety and depression. ENDOCRINOLOGIC: No reports of sweating, cold or heat intolerance. No polyuria orpolydipsia. ALLERGIES: + History of hives. Vital Signs Vital Signs Vital Signs: 01/08/25 10:35 01/08/25 12:34 01/08/25 14:00 Temperature 97.9 F Temperature Source Oral Pulse Rate 57 L 54 L 54 L Respiratory Rate 18 15 15 Blood Pressure 116/70 124/59 H 116/62 Blood Pressure Mean 85 80 80 Pulse Ox 100 100 100 Oxygen Delivery Method Room Air Room Air Room Air 01/08/25 18:00 Temperature Temperature Source Pulse Rate 55 L Respiratory Rate 17 Blood Pressure 138/78 H Blood Pressure Mean 98 Pulse Ox 99 Oxygen Delivery Method Room Air Weight Weight: 162 lb 1.6 oz Body Mass Index (BMI) 22.6 Physical Exam Narrative Physical Examination: General: Awake, alert, oriented to self, place and recent events, does have underlying dementia of unclear extent, remains cooperative, seated upright in the ED bed, fatigued, in no apparent distress. Skin: Normal color, normal turgor, no icterus, no cyanosis except occasional stage ecchymoses, abrasion with HEENT: AT/NC, EOMI, PERRLA, mildly dry MM, no carotid bruits or JVD noted. Lungs: Mildly dry, decreased bases, appropriate, no rales, ronchi or wheezing. Heart: Regular rate and rhythm; no gallop, rub audible. Abdomen: Soft, mild discomfort to suprapubic palpation but not severe, otherwiseabdomen NTTP, ND, mildly hyperactive l BS, no appreciated HSM. Extremities: No cyanosis, clubbing, or edema. Neurological: Patient awake, alert, oriented as noted, cognitive function decreased baseline with underlying dementia, appears baseline intact; pupils equally reactive to light and accommodation, cranial nerves grossly normal, moving all 4 extremities, no focal deficits, strength severely globally decreased Psychiatric: Affect appears fatigued otherwise normal, no acute evidence of depressive or anxiety feelings but does have underlying history. Results Lab / Micro Data 01/08/25 11:49 01/08/25 11:49 Labs: Laboratory Results - last 24 hr 01/08/25 11:49: WBC 3.0 L, RBC 3.58 L, Hgb 11.7 L, Hct 35.4 L, MCV 98.9 H, MCH 32.7 H, MCHC 33.1, RDW Std Deviation 49.3 H, RDW Coeff of Ezequiel 13.4, Plt Count 146 L, MPV 9.0, Immature Gran % (Auto) 0.300, Neut % (Auto) 66.8, Lymph % (Auto)22.9, [place] % (Auto) 8.6, Eos % (Auto) 0.7, Baso % (Auto) 0.7, Absolute Neuts (auto) 2.0, Absolute Lymphs (auto) 0.69 L, Nucleated RBC % 0, Sodium 138, Potassium 4.1, Chloride 103, Carbon Dioxide 26.8, Anion Gap 8, BUN 20 H, Creatinine 0.88, Estim Creat Clear Calc 67.31, Est GFR (MDRD) Non-Af 86, BUN/Creatinine Ratio 23.2 H, Glucose 98, Calcium 9.1, Troponin T High Sens 23 H 01/08/25 12:54: Urine Color Yellow, Urine Clarity Sl. Cloudy, Urine pH 7.0, Ur Specific [place] 1.010, Urine Protein 15 H, Urine Glucose (UA) Normal, Urine Ketones Negative, Urine Occult Blood 25 H, Urine Nitrite Negative, Urine Bilirubin Negative, Urine Urobilinogen Normal, Ur Leukocyte Esterase 500 H, Urine RBC 5-10 SEEN, Urine WBC 50-100 SEEN, Ur Squamous Epith Cells 0-5 SEEN, Urine Bacteria 3+, Urine Mucus 0 SEEN 01/08/25 13:54: Troponin T Hi Sens 2 Hr 23 H 01/08/25 15:45: Troponin T Hi Sens 4Hr 26 H Rhythm Strip Rhythm Strip: Sinus Rhythm Rate: 57 Ectopy: None Imaging Radiology Impression Lumbar Spine MRI 01/08/25 10:53 IMPRESSION: Postsurgical changes, dextroscoliosis, and degenerative disc disease as described above. Reading Location: [facility] Lumbar Spine X-Ray 01/08/25 11:50 IMPRESSION: ADVANCED DEGENERATIVE CHANGES OF THE LUMBAR SPINE. Status post laminectomy and fusion at the L3-L4, L4-L5 and L5-S1 levels with prosthetic disc placement. Dextroconvex scoliosis. Reading Location: [facility] Assessment & Plan Assessment/Plan (1) Weakness of both lower extremities: (2) Acute UTI: PLAN: Plan The patient is an 84 y/o M w/ PMHx: BPH with obstructive pathology, HTN, Chronicback pain s/p prior surgical intervention, CKD stage II per previous GFR trending, Chronic macrocytic anemia,, Chronic thrombocytopenia who presents to the [facility] ED on with history of onset significant weakness primarily lower extremities prior to ED arrival at his home while attempting to use his walker with difficulty even supporting himself yelling forhis who came and found him still standing and helped him lowered to the ground without any injury but because he could not even get up EMS was called. #1. Severe weakness, debility, adult Adult FTT, secondary to items noted below in addition to Acute Complicated Urinary Tract Infection complicated by BPH withobstructive pathology, history of intermittent urinary retention's and spinal fusion, history nephrolithiasis, frequent UTIs: Will admit to PCU given mildly indeterminate cardiac enzymes to be cautious, UA upon ED evaluation remarkable, pending UCx, continue IVFs, monitor I/Os, continue IV Rocephin w/ transition as able pending sensitivities and speciation. B PT/OT/case management consulted fordischarge planning. #2. Indeterminate cardiac enzymes, stable, unclear etiology: EKG in ED [], initial trop 23 with repeat delta 23 and most recent 4-hour 26. Will maintain on a monitored bed to assure no acute myocardial infarction with serial cardiac enzymes and repeat EKGs only if necessary. Magnesium level requested. Maintain on aspirin. #3. Chronic macrocytic anemia: Admission CBC with hemoglobin 11.7, MCV 90.9, baseline primarily more recently noted 9-10 range, stable, folic acid and vitamin B12 levels requested, continue to trend. #4. Chronic thrombocytopenia, unclear etiology: Admission platelets 146, previous baseline more recently 113-145, appears consistent, continue to trend. #5. Chronic Kidney Disease Stage II primarily per GFR trend: Admission BUN/Cr 20/0.88, GFR 86, baseline renal function 0.8-1.0 primarily, repeat BMP in AM. #6. BPH with obstructive pathology, history of intermittent urinary retention since his spinal fusion, history of nephrolithiasis, frequent UTIs: Will assure no evidence of any urinary retention especially given UTI as noted, not on any regimen for currently's but clarified to be certain. Patient does follow with [facility] urology. #7. Chronic back pain with chronic right lower extremity radiculopathy: Imaging with no acute findings, lumbar spine and lumbar MRI obtained in the ED, will maintain on fall precautions, PT/OT consulted for discharge planning, will continue patient home regimen but attempted to clarify. #8. Dementia, unclear type with unclear behavioral disturbance history: Will continue patient home memantine and donepezil regimen, unclear exact extent or etiology, complicates presentation, maintain on fall and aspiration precautions, PT/OT/case management consulted for discharge planning. #9. Hypertension: Continue home regimen including Lasix with hold parameters as needed, PRN hydralazine. Holding hydrochlorothiazide as already on Lasix as noted. #10. Hyperlipidemia: From prior records potentially been on statin, currently not listed, clarifying. #11. Anxiety and depression: Will continue patient home sertraline regimen, will cautiously add trazodone but hold for sedation as this may be contributing to weakness. #12. GERD: Will continue patient home PPI. #13. DVT prophylaxis: Lovenox. #14. CODE status: Patient SHAMIR is his who is present and living will is in place. Discussed CODE status at length including difference between FULL code, DNR-CCA and DNR-CC status. Following discussions about the differences in these status, requested Full Code status. Advanced Care Planning Face to Face Time: 16 minutes. Charges/Coding Visit Charges Inpatient E&M: 33837 Init Hosp L3 Procedures Hospitalists Procedures: 09163 Advncd Care Plan 30 Min 01/08/251922 <Electronically signed by Keyana Aldana MD> Cosigner Signature (if applicable): CC: Dr. Keyana Aldana MD; Dr. Francisco Bahena MD~ Signed ADDENDUM by Dr. Keyana Aldana MD on 01/08/25 at 1926 Addendum UPDATE: EKG with SR without acute evidence of ischemia. 01/08/251926<Electronically signed by Keyana Aldana MD> Cosigner Signature (if applicable): cc: Dr. Keyana Aldana MD; Dr. Francisco Bahena MD ~* Signed [facility] Work Phone: 1(770) 853-235304-15-2025 Evaluation note* Diagnosis Onset Date Resolution Status Admit Date Acute UTI acute January 08 6:51pm Weakness of both lower extremities acute January 08, 2025 6:51pm [facility] Work Phone: 1(587) 362-581004-15-2025 Evaluation note* Diagnosis Onset Date Resolution Status Admit Date Acute UTI acute January 08 6:51pm Weakness of both lower extremities resolved January 08, 2025 6:51pm [facility] Work Phone: 1(105) 399-401004-15-2025 Evaluation note* Diagnosis Onset Date Resolution Status Admit Date Acute UTI acute January 08 6:51pm Weakness of both lower extremities resolved January 08, 2025 6:51pm UTI (urinary tract infection) acute April 12, 2025 5:05pm Weakness acute April 12 5:05pm [facility] Work Phone: [phone]) 469-136904-15-2025 Evaluation note* Diagnosis Onset Date Resolution Status Admit Date Acute UTI acute January 08 6:51pm Weakness of both lower extremities resolved January 08, 2025 6:51pm Acute UTI acute April 12 5:05pm Falls acute April 12 5:05pm UTI (urinary tract infection) acute April 12, 2025 5:05pm Weakness acute April 12 5:05pm [facility] Work Phone: [phone] 402-177804-15-2025 Discharge summary Author Hector Baxter [facility] Note Date/Time January 08, 2025 6:3 1pm [facility] Medical Records Department [address] [place] [address] Emergency Department Summary 01/08/25 MR#: [id number] Acct: [id number] Name: JAVIER BOND Rep #:[id number] : 1940 84 From: Hector Baxter MD PCP: Dr. Francisco Bahena MD Status:REG ER Location: ED ADDENDUM by Dr. Pool Lopez MD on 01/08/25 at 1831 Patient was endorsed to me by Dr. Hector Baxter to check the MRI results on this patient that could barely stand secondary to bilateral lower extremity weakness. I reviewed the radiology report of the results of the MRI which show degenerative changes and dextroscoliosis. In discussion at signout, the plan isthat given his continued weakness and no need for emergent neurosurgery transfer, that he could be admitted here given his bilateral lower extremity weakness. I will discuss patient with the hospitalist for at least observation. This is for his bilateral lower extremity weakness, and UTI. Patient is in stable condition. 01/08/251830<Electronically signed by Pool Lopez MD> Cosigner Signature (if applicable): cc: Dr. Francisco Bahena MD ~* Signed HPI History of Present Illness Chief Complaint: Weakness Informant: patient, spouse/S.O. and EMS Narrative Narrative: 84-year-old male about an hour prior to arrival states he was using his walker in his house suddenly his legs felt weak and he felt like he could not support himself anymore. He was using his arms to hold himself up with his walker without falling but he felt like he was going to go down so he was yelling for his who came to help him and states that she found him still standing but barely, holding onto his walker with his arms, and she helped lower him to the ground without injury. He was not able to get up because his legs are too weak,and so EMS was called to bring him to the ED. He denies any other prodromal symptoms; he denies any acute pain although he has chronic low back pain, he states it is unchanged for the past 4 years since his fusion surgery, he denies any abdominal pain, recent illness, dyspnea, lightheadedness, headache. He states chronically with his back, he gets some sciatica down his right leg, may be some mild weakness, but has never had anything like this on both sides. He states the right 1 feels worse as it usually is his "bad side." He denies any numbness. He denies any bowel or bladder dysfunction today. He denies saddle anesthesia or numbness elsewhere. [facility] Medical History Left inguinal hernia Groin pain Inguinal hernia bilateral, non-recurrent Right inguinal hernia History of kidney stones History of hiatal hernia Abdominal pain BPH (benign prostatic hyperplasia) Arthritis History of back problems Hypertension Home Medications ?Medication ?Instructions ?Recorded ?Last Taken ?Type acetaminophen 500 mg tablet 1,000 mg PO PRN Pain 04/03 Unknown History hydrochlorothiazide 12.5 mg capsule 12.5 mg PO DAILY d iuretic 04/03/17 01/07/25 History doxycycline hyclate 20 mg tablet 20 mg PO BID infectio n 03/13/19 01/07/25 History metronidazole 0.75 % topical cream 1 applic topical DA [facility] skin health 07/16/19 01/07/25 History aspirin 81 mg tablet,delayed 81 mg PO QHS heart health 01/28/21 01/07/25 History release (Rika Low Dose Aspirin) multivitamin 1 tab PO DAILY vitamin 05/1801/07/25 History pantoprazole 40 mg tablet,delayed 40 mg PO DAILY reflu x 05/03/22 01/07/25 History release d-mannose 1 ea PO DAILY 09/24/2301/07 History dupilumab 300 mg/2 mL subcutaneous 300 mg subcut .COMP LUIS skin health 09/24/23 Unknown History pen injector (Dupixent) lisinopril 5 mg tablet 5 mg PO DAILY blood pressure 09/24/23 Unknown History Held on 01/08/25. Instructions: MD Ordered BACLOFEN SUPPOSITORY 1 supp OTHER DAILY CONSITPAT ION 01/08/25 Unknown History Lactobacillus acidophilus 10 80 mmu cells PO DAILY 01/07/25 History billion cell capsule (NewFlora) donepezil 5 mg tablet 10 mg PO DAILY 01/08/2512/25 History furosemide 20 mg tablet 20 mg PO DAILY 01/08/2512/25 History guaifenesin 600 mg tablet, 600 mg PO BID 01/08/2512/25 History extended release 12 hr (Mucinex) melatonin 5 mg tablet 5 mg PO QHS 01/08/25 5 History memantine 10 mg tablet 10 mg PO BID 01/08/25 History methenamine hippurate 1 gram tablet 1 g PO BID 5 01/07/25 History plecanatide 3 mg tablet (Trulance) 3 mg PO DAILY 01/08 Unknown History Held on 01/08/25. Instructions: MD Ordered polyethylene glycol 3350 17 17 g PO DAILY 01/08/25 History gram/dose oral powder (ClearLax) sertraline 25 mg tablet 25 mg PO DAILY 01/08/2512/25 History trazodone 100 mg tablet 100 mg PO QHS 01/08/2501/07 History triamcinolone acetonide topical DAILY PRN itching 01/07/25 History Allergy/AdvReac Type Severity Reaction Status Date / Time Iodinated Contrast Media Allergy Hives Verified 01/08/25 10:39 (CONTRASTS) azelaic acid (From Finacea) AdvReac Rash Verified 01/08/25 10:39 levofloxacin AdvReac Rash Verified 01/08/25 10:39 meloxicam (From Mobic) AdvReac Nausea Verified 01/08/25 10:39 misoprostol (From Cytotec) AdvReac Nausea Verified 01/08/25 10:39 nabumetone (From Relafen) AdvReac Nausea Verified 01/08/25 10:39 NSAIDS (Non-Steroidal AdvReac Nausea Verified 01/08/25 10:39 Anti-Inflamma sulfamethoxazole (From AdvReac Nausea Verified 01/08/25 10:39 Bactrim) terbinafine AdvReac Nausea Verified 01/08/25 10:39 trimethoprim (From Bactrim) AdvReac Nausea Verified 01/08/25 10:39 valdecoxib (From Bextra) AdvReac Other Verified 01/08/25 10:39 Family History Father Colon cancer Mother Cancer lung Hypertension Brother Cancer Family History no significant family his Surgical History History of left inguinal hernia repair (~07/18/19) History of right inguinal hernia repair History of colonoscopy (~02/2019) history repair left thumb History of hemorrhoidectomy History of bilateral cataract extraction history ureteral stent insertion History of laparoscopic cholecystectomy history lap hiatal hernia repair Hx of repair of right rotator cuff Hx of repair of left rotator cuff history exacorporeal shock wave lithrotripsy Social History household members: spouse Smoking Status: Never smoker alcohol intake: current alcohol intake frequency: a few times a month substance use type: does not use ROS ROS ED Constitutional Constitutional ED: Denies chills or fever(s) Eyes Eyes: Denies change in vision or diplopia ENT ENT ED: Denies rhinorrhea or sore throat Cardiovascular Cardiovascular: Denies chest pain or palpitations Respiratory/Chest Respiratory/Chest: Denies cough or dyspnea Gastrointestinal Gastrointestinal: Denies abdominal pain, constipation, fecal incontinence, nausea or vomiting Genitourinary Genitourinary ED: Reports other Details: no urinary retention ; Denies abdominal discomfort or urinary incontinence Musculoskeletal Musculoskeletal: Reports as per HPI and back pain; Denies neck pain Integumentary Denies rash or wounds Neurologic Neurologic: Reports weakness; Denies headache(s) or paresthesias Psychiatric Psychiatric: Denies anxiety or suicidal thoughts EXAM Physical Exam Const Vital Signs: 01/08/25 10:35 01/08/25 12:34 01/08/25 14:00 Temperature 97.9 F Temperature Source Oral Pulse Rate 57 L 54 L 54 L Respiratory Rate 18 15 15 Blood Pressure 116/70 124/59 H 116/62 Blood Pressure Mean 85 80 80 Pulse Ox 100 100 100 Oxygen Delivery Method Room Air Room Air Room Air Positive well nourished and well developed General Appearance ED: well developed and NAD HEENT Reports moist mucous membranes Negative for trauma or tenderness Eyes PERRL and EOMs intact bilaterally Neck full ROM and supple Resp normal respiratory effort and clear to auscultation bilaterally Cardio regular rate and regular rhythm GI normal to inspection, nondistended, normoactive bowel sounds, soft to palpation and non-tender Auscultation: normoactive bowel sounds Palpation: soft Back/Spine normal to inspection Back/Spine Narrative: Able to sit up with some assistance, well-healed lumbar spine surgical scar, diffuse mild lumbar tenderness nonfocal no step-off. No rashes. General Back: other FROM Lumbar Spine / Lower Back: ROM limited, lumbar spinal tenderness, paraspinal muscle tenderness and straight leg raise negative bilaterally Extremity normal to inspection, full ROM and no pedal edema General Extremety ED: Negative for edema, pulses abnormal or tenderness General Extremity: Negative for edema or pulses abnormal Neuro oriented x3 and no sensory deficits noted Neuro Narrative: Weak proximally in both lower extremities worse on the right, he is able to resist gravity partially. Normal strength both upper extremities. Reflexes aresymmetric and basically absent throughout including his arms. Normal speech. Sensorium / Orientation: alert Motor Exam: strength abnormal and clonus absent Deep Tendon Reflexes: Rt Triceps (C7): 0, Lt Triceps (C7): 0, Rt Biceps (C5, C6): 0, Lt Biceps (C5, C6): 0, Rt Brachioradialis (C6): 0, Lt Brachioradialis (C6): 0, Rt Patellar (L4): 0, Lt Patellar (L4): 0, Rt Ankle (S1): 0 and Lt Ankle(S1): 0 Deep Tendon Reflexes Back: Rt Patellar (L4): 0, Lt Patellar (L4): 0, Rt Ankle (S1): 0 and Lt Ankle (S1): 0 Plantar Reflex: Downgoing: bilateral Psych mental status grossly normal and thought process normal Skin no rashes or lesions noted and no wounds MDM MDM MDM Narrative Medical decision making narrative: Given this patient's history and exam my suspicion is that the etiology of his symptoms is in his low back as opposed to his brain or metabolic disorder or something cardiac, although I am ruling those out with labs and an EKG as well. Obtained three-view x-ray series of the lumbar spine to my interpretation there is no acute fractures, surgical hardware is noted. He is not anticoagulated. Given all of this, and the possibility of cord compression causing this, I thinkthe patient needs a stat MRI. In the meantime, labs are obtained including the urine, EKG, troponin given his weakness. Initial troponin is 23 which is just barely out of the normal range but his EKG is normal, a delta was sent and is higher by only 3 which is a negative delta for ACS, and the rest of his labs are normal. He is actually little leukopenic without being neutropenic. His urine shows signs of infection and significant pyuria without signs of contamination. Therefore I will send this for culture and treat it empirically although he has not been having new urinary symptoms. It is unclear if this is related to his symptoms, but given his focal neurologic weakness below the waist, I still think getting an MRI of his back is indicated. He does still have lower extremity weakness and will likely need to be admitted. Checked out to oncoming ED physician at shift change. History & Record Review Discussion w/independent historian: Patient and Significant other Additional record(s) reviewed:: Prior outpatient record (Reviewed [facility], no record of prior MRI although patient states that exists) Lab Data Attestation: I reviewed the patient's lab results. Labs: Laboratory Results - last 24 hr 01/08/25 01/08/25 01/08/25 11:49 12:54 15:45 WBC 3.0 L RBC 3.58 L Hgb 11.7 L Hct 35.4 L MCV 98.9 H MCH 32.7 H MCHC 33.1 RDW Std Deviation 49.3 H RDW Coeff of Ezequiel 13.4 Plt Count 146 L MPV 9.0 Immature Gran % (Auto) 0.300 Neut % (Auto) 66.8 Lymph % (Auto) 22.9 [place] % (Auto) 8.6 Eos % (Auto) 0.7 Baso % (Auto) 0.7 Absolute Neuts (auto) 2.0 Absolute Lymphs (auto) 0.69 L Nucleated RBC % 0 Sodium 138 Potassium 4.1 Chloride 103 Carbon Dioxide 26.8 Anion Gap 8 BUN 20 H Creatinine 0.88 Estim Creat Clear Calc 67.31 Est GFR (MDRD) Non-Af 86 BUN/Creatinine Ratio 23.2 H Glucose 98 Calcium 9.1 Troponin T High Sens 23 H Troponin T Hi Sens 4Hr 26 H Urine Color Yellow Urine Clarity Sl. Cloudy Urine pH 7.0 Ur Specific [place] 1.010 Urine Protein 15 H Urine Glucose (UA) Normal Urine Ketones Negative Urine Occult Blood 25 H Urine Nitrite Negative Urine Bilirubin Negative Urine Urobilinogen Normal Ur Leukocyte Esterase 500 H Urine RBC 5-10 SEEN Urine WBC 50-100 SEEN Ur Squamous Epith Cells 0-5 SEEN Urine Bacteria 3+ Urine Mucus 0 SEEN Radiography Diagnostic Testing: Clinical Impression(s) from Imaging Studies Lumbar Spine X-Ray 01/08/25 11:50 IMPRESSION: ADVANCED DEGENERATIVE CHANGES OF THE LUMBAR SPINE. Status post laminectomy and fusion at the L3-L4, L4-L5 and L5-S1 levels with prosthetic disc placement. Dextroconvex scoliosis. Reading Location: [facility]- Rhythm Strip Rhythm Strip: Sinus Rhythm Rate: 57 Ectopy: None EKG Initial EKG: Attestation: I personally reviewed and interpreted this EKG as follows: Interpretation: No Acute Injury Pattern and Sinus Bradycardia Comments: Nml axis & intervals; nml EKG Discharge Plan Triage Chief Complaint: Weakness ED Provider: Hector Baxter Dx/Rx/DC Orders Clinical Impression: Weakness of both lower extremities, Acute UTI, Inability to walk Prescriptions: No Action metronidazole 0.75 % cream 1 applic TOPICAL DAILY acetaminophen 500 MG tablet 1,000 mg PO PRN hydrochlorothiazide 12.5 MG capsule 12.5 mg PO DAILY Patient Comments: doxycycline hyclate 20 mg tablet 20 mg PO BID Patient Comments: aspirin [Rika Low Dose Aspirin] 81 mg Tablet,Delayed Release (Dr/Ec) 81 mg PO QHS multivitamin Tablet 1 tab PO DAILY pantoprazole 40 mg Tablet,Delayed Release (Dr/Ec) 40 mg PO DAILY lisinopril 5 mg tablet 5 mg PO DAILY d-mannose Powder 1 ea PO DAILY Rx Instructions: 1/4 teaspoon on cereal each am. Dupixent Pen 300 mg/2 mL pen injector 300 mg subcut .COMPLEX Rx Instructions: 300 mg subcutaneously EVERY 6 WEEKS; donepezil 5 mg tablet 10 mg PO DAILY trazodone 100 mg tablet 100 mg PO QHS furosemide 20 mg tablet 20 mg PO DAILY memantine 10 mg tablet 10 mg PO BID methenamine hippurate 1 gram tablet 1 g PO BID sertraline 25 mg tablet 25 mg PO DAILY triamcinolone acetonide topical DAILY PRN (Reason: itching) melatonin 5 mg tablet 5 mg PO QHS NewFlora 10 billion cell capsule 80 mmu cells PO DAILY polyethylene glycol 3350 [ClearLax] 17 gram/dose powder 17 g PO DAILY guaifenesin [Mucinex] 600 mg tablet extended release 12hr 600 mg PO BID Trulance 3 mg tablet 3 mg PO DAILY Patient Comments: ON 12/13/24 BACLOFEN SUPPOSITORY 1 supp OTHER DAILY Primary Care Provider: Francisco Bahena Referrals: Francisco Bahena MD [Primary Care Provider] - Print Language: Tanzanian Disposition Disposition: Acute Care Hospital [facility] What to do if you have Problems For any increased pain, shortness of breath, bleeding, nausea or vomiting, chestpain, or any unexpected problems, contact your Primary Care Provider. Call [facility] ([phone]) or report to the closest Emergency Room. Call 911 if necessary. 01/08/25 1630 <Electronically signed by Hector Baxter MD> Cosigner Signature (if applicable): CC: Dr. Francisco Bahena MD ~ Signed [facility] Work Phone: [phone] Discharge summary Author Hector Baxter [facility] Note Date/Time January 08, 2025 6:3 1pm [facility] Medical Records Department [address] [place] [address] Emergency Department Summary 01/08/25 MR#: [id number] Acct: [id number] Name: JAVIER BOND Rep #:[id number] : 1940 84 From: Hector Baxter MD PCP: Dr. Francisco Bahena MD Status:REG ER Location: ED ADDENDUM by Dr. Pool Lopez MD on 01/08/25 at 1831 Patient was endorsed to me by Dr. Hector Baxter to check the MRI results on this patient that could barely stand secondary to bilateral lower extremity weakness. I reviewed the radiology report of the results of the MRI which show degenerative changes and dextroscoliosis. In discussion at signout, the plan isthat given his continued weakness and no need for emergent neurosurgery transfer, that he could be admitted here given his bilateral lower extremity weakness. I will discuss patient with the hospitalist for at least observation. This is for his bilateral lower extremity weakness, and UTI. Patient is in stable condition. 01/08/251830<Electronically signed by Pool Lopez MD> Cosigner Signature (if applicable): cc: Dr. Francisco Bahena MD ~* Signed HPI History of Present Illness Chief Complaint: Weakness Informant: patient, spouse/S.O. and EMS Narrative Narrative: 84-year-old male about an hour prior to arrival states he was using his walker in his house suddenly his legs felt weak and he felt like he could not support himself anymore. He was using his arms to hold himself up with his walker without falling but he felt like he was going to go down so he was yelling for his who came to help him and states that she found him still standing but barely, holding onto his walker with his arms, and she helped lower him to the ground without injury. He was not able to get up because his legs are too weak,and so EMS was called to bring him to the ED. He denies any other prodromal symptoms; he denies any acute pain although he has chronic low back pain, he states it is unchanged for the past 4 years since his fusion surgery, he denies any abdominal pain, recent illness, dyspnea, lightheadedness, headache. He states chronically with his back, he gets some sciatica down his right leg, may be some mild weakness, but has never had anything like this on both sides. He states the right 1 feels worse as it usually is his "bad side." He denies any numbness. He denies any bowel or bladder dysfunction today. He denies saddle anesthesia or numbness elsewhere. [facility] Medical History Left inguinal hernia Groin pain Inguinal hernia bilateral, non-recurrent Right inguinal hernia History of kidney stones History of hiatal hernia Abdominal pain BPH (benign prostatic hyperplasia) Arthritis History of back problems Hypertension Home Medications ?Medication ?Instructions ?Recorded ?Last Taken ?Type acetaminophen 500 mg tablet 1,000 mg PO PRN Pain 04/03 Unknown History hydrochlorothiazide 12.5 mg capsule 12.5 mg PO DAILY d iuretic 04/03/17 01/07/25 History doxycycline hyclate 20 mg tablet 20 mg PO BID infectio n 03/13/19 01/07/25 History metronidazole 0.75 % topical cream 1 applic topical DA [facility] skin health 07/16/19 01/07/25 History aspirin 81 mg tablet,delayed 81 mg PO QHS heart health 01/28/21 01/07/25 History release (Rika Low Dose Aspirin) multivitamin 1 tab PO DAILY vitamin 05/1801/07/25 History pantoprazole 40 mg tablet,delayed 40 mg PO DAILY reflu x 05/03/22 01/07/25 History release d-mannose 1 ea PO DAILY 09/24/2301/07 History dupilumab 300 mg/2 mL subcutaneous 300 mg subcut .COMP LUIS skin health 09/24/23 Unknown History pen injector (Dupixent) lisinopril 5 mg tablet 5 mg PO DAILY blood pressure 09/24/23 Unknown History Held on 01/08/25. Instructions: Ordered BACLOFEN SUPPOSITORY 1 supp OTHER DAILY CONSITPAT ION 01/08/25 Unknown History Lactobacillus acidophilus 10 80 mmu cells PO DAILY 01/07/25 History billion cell capsule (NewFlora) donepezil 5 mg tablet 10 mg PO DAILY 01/08/2512/25 History furosemide 20 mg tablet 20 mg PO DAILY 01/08/2512/25 History guaifenesin 600 mg tablet, 600 mg PO BID 01/08/2512/25 History extended release 12 hr (Mucinex) melatonin 5 mg tablet 5 mg PO QHS 01/08/25 5 History memantine 10 mg tablet 10 mg PO BID 01/08/25 History methenamine hippurate 1 gram tablet 1 g PO BID 5 01/07/25 History plecanatide 3 mg tablet (Trulance) 3 mg PO DAILY 01/08 Unknown History Held on 01/08/25. Instructions: MD Ordered polyethylene glycol 3350 17 17 g PO DAILY 01/08/25 History gram/dose oral powder (ClearLax) sertraline 25 mg tablet 25 mg PO DAILY 01/08/2512/25 History trazodone 100 mg tablet 100 mg PO QHS 01/08/2501/07 History triamcinolone acetonide topical DAILY PRN itching 01/07/25 History Allergy/AdvReac Type Severity Reaction Status Date / Time Iodinated Contrast Media Allergy Hives Verified 01/08/25 10:39 (CONTRASTS) azelaic acid (From Finacea) AdvReac Rash Verified 01/08/25 10:39 levofloxacin AdvReac Rash Verified 01/08/25 10:39 meloxicam (From Mobic) AdvReac Nausea Verified 01/08/25 10:39 misoprostol (From Cytotec) AdvReac Nausea Verified 01/08/25 10:39 nabumetone (From Relafen) AdvReac Nausea Verified 01/08/25 10:39 NSAIDS (Non-Steroidal AdvReac Nausea Verified 01/08/25 10:39 Anti-Inflamma sulfamethoxazole (From AdvReac Nausea Verified 01/08/25 10:39 Bactrim) terbinafine AdvReac Nausea Verified 01/08/25 10:39 trimethoprim (From Bactrim) AdvReac Nausea Verified 01/08/25 10:39 valdecoxib (From Bextra) AdvReac Other Verified 01/08/25 10:39 Family History Father Colon cancer Mother Cancer lung Hypertension Brother Cancer Family History no significant family his Surgical History History of left inguinal hernia repair (~07/18/19) History of right inguinal hernia repair History of colonoscopy (~02/2019) history repair left thumb History of hemorrhoidectomy History of bilateral cataract extraction history ureteral stent insertion History of laparoscopic cholecystectomy history lap hiatal hernia repair Hx of repair of right rotator cuff Hx of repair of left rotator cuff history exacorporeal shock wave lithrotripsy Social History household members: spouse Smoking Status: Never smoker alcohol intake: current alcohol intake frequency: a few times a month substance use type: does not use ROS ROS ED Constitutional Constitutional ED: Denies chills or fever(s) Eyes Eyes: Denies change in vision or diplopia ENT ENT ED: Denies rhinorrhea or sore throat Cardiovascular Cardiovascular: Denies chest pain or palpitations Respiratory/Chest Respiratory/Chest: Denies cough or dyspnea Gastrointestinal Gastrointestinal: Denies abdominal pain, constipation, fecal incontinence, nausea or vomiting Genitourinary Genitourinary ED: Reports other Details: no urinary retention ; Denies abdominal discomfort or urinary incontinence Musculoskeletal Musculoskeletal: Reports as per HPI and back pain; Denies neck pain Integumentary Denies rash or wounds Neurologic Neurologic: Reports weakness; Denies headache(s) or paresthesias Psychiatric Psychiatric: Denies anxiety or suicidal thoughts EXAM Physical Exam Const Vital Signs: 01/08/25 10:35 01/08/25 12:34 01/08/25 14:00 Temperature 97.9 F Temperature Source Oral Pulse Rate 57 L 54 L 54 L Respiratory Rate 18 15 15 Blood Pressure 116/70 124/59 H 116/62 Blood Pressure Mean 85 80 80 Pulse Ox 100 100 100 Oxygen Delivery Method Room Air Room Air Room Air Positive well nourished and well developed General Appearance ED: well developed and NAD HEENT Reports moist mucous membranes Negative for trauma or tenderness Eyes PERRL and EOMs intact bilaterally Neck full ROM and supple Resp normal respiratory effort and clear to auscultation bilaterally Cardio regular rate and regular rhythm GI normal to inspection, nondistended, normoactive bowel sounds, soft to palpation and non-tender Auscultation: normoactive bowel sounds Palpation: soft Back/Spine normal to inspection Back/Spine Narrative: Able to sit up with some assistance, well-healed lumbar spine surgical scar, diffuse mild lumbar tenderness nonfocal no step-off. No rashes. General Back: other FROM Lumbar Spine / Lower Back: ROM limited, lumbar spinal tenderness, paraspinal muscle tenderness and straight leg raise negative bilaterally Extremity normal to inspection, full ROM and no pedal edema General Extremety ED: Negative for edema, pulses abnormal or tenderness General Extremity: Negative for edema or pulses abnormal Neuro oriented x3 and no sensory deficits noted Neuro Narrative: Weak proximally in both lower extremities worse on the right, he is able to resist gravity partially. Normal strength both upper extremities. Reflexes aresymmetric and basically absent throughout including his arms. Normal speech. Sensorium / Orientation: alert Motor Exam: strength abnormal and clonus absent Deep Tendon Reflexes: Rt Triceps (C7): 0, Lt Triceps (C7): 0, Rt Biceps (C5, C6): 0, Lt Biceps (C5, C6): 0, Rt Brachioradialis (C6): 0, Lt Brachioradialis (C6): 0, Rt Patellar (L4): 0, Lt Patellar (L4): 0, Rt Ankle (S1): 0 and Lt Ankle(S1): 0 Deep Tendon Reflexes Back: Rt Patellar (L4): 0, Lt Patellar (L4): 0, Rt Ankle (S1): 0 and Lt Ankle (S1): 0 Plantar Reflex: Downgoing: bilateral Psych mental status grossly normal and thought process normal Skin no rashes or lesions noted and no wounds MDM MDM MDM Narrative Medical decision making narrative: Given this patient's history and exam my suspicion is that the etiology of his symptoms is in his low back as opposed to his brain or metabolic disorder or something cardiac, although I am ruling those out with labs and an EKG as well. Obtained three-view x-ray series of the lumbar spine to my interpretation there is no acute fractures, surgical hardware is noted. He is not anticoagulated. Given all of this, and the possibility of cord compression causing this, I thinkthe patient needs a stat MRI. In the meantime, labs are obtained including the urine, EKG, troponin given his weakness. Initial troponin is 23 which is just barely out of the normal range but his EKG is normal, a delta was sent and is higher by only 3 which is a negative delta for ACS, and the rest of his labs are normal. He is actually little leukopenic without being neutropenic. His urine shows signs of infection and significant pyuria without signs of contamination. Therefore I will send this for culture and treat it empirically although he has not been having new urinary symptoms. It is unclear if this is related to his symptoms, but given his focal neurologic weakness below the waist, I still think getting an MRI of his back is indicated. He does still have lower extremity weakness and will likely need to be admitted. Checked out to oncoming ED physician at shift change. History & Record Review Discussion w/independent historian: Patient and Significant other Additional record(s) reviewed:: Prior outpatient record (Reviewed [facility], no record of prior MRI although patient states that exists) Lab Data Attestation: I reviewed the patient's lab results. Labs: Laboratory Results - last 24 hr 01/08/25 01/08/25 01/08/25 11:49 12:54 15:45 WBC 3.0 L RBC 3.58 L Hgb 11.7 L Hct 35.4 L MCV 98.9 H MCH 32.7 H MCHC 33.1 RDW Std Deviation 49.3 H RDW Coeff of Ezequiel 13.4 Plt Count 146 L MPV 9.0 Immature Gran % (Auto) 0.300 Neut % (Auto) 66.8 Lymph % (Auto) 22.9 [place] % (Auto) 8.6 Eos % (Auto) 0.7 Baso % (Auto) 0.7 Absolute Neuts (auto) 2.0 Absolute Lymphs (auto) 0.69 L Nucleated RBC % 0 Sodium 138 Potassium 4.1 Chloride 103 Carbon Dioxide 26.8 Anion Gap 8 BUN 20 H Creatinine 0.88 Estim Creat Clear Calc 67.31 Est GFR (MDRD) Non-Af 86 BUN/Creatinine Ratio 23.2 H Glucose 98 Calcium 9.1 Troponin T High Sens 23 H Troponin T Hi Sens 4Hr 26 H Urine Color Yellow Urine Clarity Sl. Cloudy Urine pH 7.0 Ur Specific [place] 1.010 Urine Protein 15 H Urine Glucose (UA) Normal Urine Ketones Negative Urine Occult Blood 25 H Urine Nitrite Negative Urine Bilirubin Negative Urine Urobilinogen Normal Ur Leukocyte Esterase 500 H Urine RBC 5-10 SEEN Urine WBC 50-100 SEEN Ur Squamous Epith Cells 0-5 SEEN Urine Bacteria 3+ Urine Mucus 0 SEEN Radiography Diagnostic Testing: Clinical Impression(s) from Imaging Studies Lumbar Spine X-Ray 01/08/25 11:50 IMPRESSION: ADVANCED DEGENERATIVE CHANGES OF THE LUMBAR SPINE. Status post laminectomy and fusion at the L3-L4, L4-L5 and L5-S1 levels with prosthetic disc placement. Dextroconvex scoliosis. Reading Location: [place] [address] Rhythm Strip Rhythm Strip: Sinus Rhythm Rate: 57 Ectopy: None EKG Initial EKG: Attestation: I personally reviewed and interpreted this EKG as follows: Interpretation: No Acute Injury Pattern and Sinus Bradycardia Comments: Nml axis & intervals; nml EKG Discharge Plan Triage Chief Complaint: Weakness ED Provider: Hector Baxter Dx/Rx/DC Orders Clinical Impression: Weakness of both lower extremities, Acute UTI, Inability to walk Prescriptions: No Action metronidazole 0.75 % cream 1 applic TOPICAL DAILY acetaminophen 500 MG tablet 1,000 mg PO PRN hydrochlorothiazide 12.5 MG capsule 12.5 mg PO DAILY Patient Comments: doxycycline hyclate 20 mg tablet 20 mg PO BID Patient Comments: aspirin [Rika Low Dose Aspirin] 81 mg Tablet,Delayed Release (Dr/Ec) 81 mg PO QHS multivitamin Tablet 1 tab PO DAILY pantoprazole 40 mg Tablet,Delayed Release (Dr/Ec) 40 mg PO DAILY lisinopril 5 mg tablet 5 mg PO DAILY d-mannose Powder 1 ea PO DAILY Rx Instructions: /4 teaspoon on cereal each am. Dupixent Pen 300 mg/2 mL pen injector 300 mg subcut .COMPLEX Rx Instructions: 300 mg subcutaneously EVERY 6 WEEKS; donepezil 5 mg tablet 10 mg PO DAILY trazodone 100 mg tablet 100 mg PO QHS furosemide 20 mg tablet 20 mg PO DAILY memantine 10 mg tablet 10 mg PO BID methenamine hippurate 1 gram tablet 1 g PO BID sertraline 25 mg tablet 25 mg PO DAILY triamcinolone acetonide topical DAILY PRN (Reason: itching) melatonin 5 mg tablet 5 mg PO QHS NewFlora 10 billion cell capsule 80 mmu cells PO DAILY polyethylene glycol 3350 [ClearLax] 17 gram/dose powder 17 g PO DAILY guaifenesin [Mucinex] 600 mg tablet extended release 12hr 600 mg PO BID Trulance 3 mg tablet 3 mg PO DAILY Patient Comments: ON 12/13/24 BACLOFEN SUPPOSITORY 1 supp OTHER DAILY Primary Care Provider: Francisco Bahena Referrals: Francisco Bahena MD [Primary Care Provider] - Print Language: Tanzanian Disposition Disposition: Acute Care [facility] What to do if you have Problems For any increased pain, shortness of breath, bleeding, nausea or vomiting, chestpain, or any unexpected problems, contact your Primary Care Provider. Call [facility] ([phone]) or report to the closest Emergency Room. Call 911 if necessary. 01/08/25 1630 <Electronically signed by Hector Baxter MD> Cosigner Signature (if applicable): CC: Dr. Francisco Bahena MD ~ Signed [facility] Work Phone: [phone] History and physical note [facility] Medical Records Department [address] [place] [address] H&P Exam - Hospitalist 01/08/25 1851 MR#: [id number] Acct: [id number] Name: JAVIER BOND Rep #:[id number] : 1940 84 From: Keyana Aldana MD PCP: Dr. Francisco Bahena MD Status:REG ER Location: ED HPI - General General Date of Admission: 01/08/25 Date of Service: 01/08/25 Chief Complaint: Weakness, debility. 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 He has chronic low back pain and notes that is unchanged since his prior fusion4 years prior. He denies any recent illnesses. He does state that he chronically has some sciatic discomfort down his right lower extremity and mild weakness but this is similar to previous and unchanged. He denies any change inbowel or bladder function nor any saddle anesthesia or paresthesia. Workup in the ED included T97.9, heart rate 57, BP 116/70, respiratory rate 18, 100% on room air with most recent repeat vitals heart rate 55, BP 138/78, respiratory rate 17, 99% on room air, CBC with WBC 3.0, hemoglobin 0.7, MCV 98.9, platelet 146 with lymphopenia, BMP with BUN/creatinine 20/0.88, GFR86, initial troponin 23, repeat delta 23 and 4-hour 26, urine cloudy, specifically 1.010, protein 15,occult blood 25, leukocyte Estrace 500 with urine RBCs 5-10, urine WBCs 50-100 with 3+ urine bacteria, MRI of the lumbar spine with postsurgical changes, dextroscoliosis, degenerative disc disease, plain film of the lumbar spine with status post laminectomy and fusion at L3-L4, L4-L5 and L5-S1 levels with prosthetic disc placement, dextroconvex scoliosis. From review of previous records 09/10/2023 patient did have an E. coli urinary tract infection with associated bacteremia at that time currently sensitive to Rocephin, only agent and was resistant to was ampicillin, and sensitive to Unasyn at that time. In the ED patient administered Rocephin 1 g IV x 1. PFSH Medical History Anxiety and depression HLD (hyperlipidemia) CKD (chronic kidney disease), stage II Dementia Left inguinal hernia Groin pain Inguinal hernia bilateral, non-recurrent Right inguinal hernia History of kidney stones History of hiatal hernia Abdominal pain BPH (benign prostatic hyperplasia) Arthritis History of back problems Hypertension Medical History no medical history Home Medications ?Medication ?Instructions ?Recorded ?Last Taken ?Type acetaminophen 500 mg tablet 1,000 mg PO PRN Pain 04/03 Unknown History hydrochlorothiazide 12.5 mg capsule 12.5 mg PO DAILY d iuretic 04/03/17 01/07/25 History doxycycline hyclate 20 mg tablet 20 mg PO BID infectio n 03/13/19 01/07/25 History metronidazole 0.75 % topical cream 1 applic topical DA [facility] skin health 07/16/19 01/07/25 History aspirin 81 mg tablet,delayed 81 mg PO QHS heart health 01/28/21 01/07/25 History release (Rika Low Dose Aspirin) multivitamin 1 tab PO DAILY vitamin 05/1801/07/25 History pantoprazole 40 mg tablet,delayed 40 mg PO DAILY reflu x 05/03/22 01/07/25 History release d-mannose 1 ea PO DAILY 09/24/2301/07 History dupilumab 300 mg/2 mL subcutaneous 300 mg subcut .COMP LUIS skin health 12/30/23 Unknown History pen injector (Dupixent) lisinopril 5 mg tablet 5 mg PO DAILY blood pressure 09/24/23 Unknown History Held on 01/08/25. Instructions: MD Ordered BACLOFEN SUPPOSITORY 1 supp OTHER DAILY CONSITPAT ION 01/08/25 Unknown History Lactobacillus acidophilus 10 80 mmu cells PO DAILY 01/07/25 History billion cell capsule (NewFlora) donepezil 5 mg tablet 10 mg PO DAILY 01/08/2512/25 History furosemide 20 mg tablet 20 mg PO DAILY 01/08/2512/25 History guaifenesin 600 mg tablet, 600 mg PO BID 01/08/2512/25 History extended release 12 hr (Mucinex) melatonin 5 mg tablet 5 mg PO QHS 01/08/25 5 History memantine 10 mg tablet 10 mg PO BID 01/08/25 History methenamine hippurate 1 gram tablet 1 g PO BID 5 01/07/25 History plecanatide 3 mg tablet (Trulance) 3 mg PO DAILY 01/08 Unknown History Held on 01/08/25. Instructions: MD Ordered polyethylene glycol 3350 17 17 g PO DAILY 01/08/25 History gram/dose oral powder (ClearLax) sertraline 25 mg tablet 25 mg PO DAILY 01/08/2512/25 History trazodone 100 mg tablet 100 mg PO QHS 01/08/2501/07 History triamcinolone acetonide topical DAILY PRN itching 01/07/25 History Allergy/AdvReac Type Severity Reaction Status Date / Time Iodinated Contrast Media Allergy Hives Verified 01/08/25 10:39 (CONTRASTS) azelaic acid (From Finacea) AdvReac Rash Verified 01/08/25 10:39 levofloxacin AdvReac Rash Verified 01/08/25 10:39 meloxicam (From Mobic) AdvReac Nausea Verified 01/08/25 10:39 misoprostol (From Cytotec) AdvReac Nausea Verified 01/08/25 10:39 nabumetone (From Relafen) AdvReac Nausea Verified 01/08/25 10:39 NSAIDS (Non-Steroidal AdvReac Nausea Verified 01/08/25 10:39 Anti-Inflamma sulfamethoxazole (From AdvReac Nausea Verified 01/08/25 10:39 Bactrim) terbinafine AdvReac Nausea Verified 01/08/25 10:39 trimethoprim (From Bactrim) AdvReac Nausea Verified 01/08/25 10:39 valdecoxib (From Bextra) AdvReac Other Verified 01/08/25 10:39 Family History Father Colon cancer Mother Cancer lung Hypertension Brother Cancer Family History no significant family his Surgical History History of left inguinal hernia repair (~07/18/19) History of right inguinal hernia repair History of colonoscopy (~02/2019) history repair left thumb History of hemorrhoidectomy History of bilateral cataract extraction history ureteral stent insertion History of laparoscopic cholecystectomy history lap hiatal hernia repair Hx of repair of right rotator cuff Hx of repair of left rotator cuff history exacorporeal shock wave lithrotripsy Surgical History no surgical history Social History household members: spouse Smoking Status: Never smoker alcohol intake: current alcohol intake frequency: a few times a month substance use type: does not use ROS ROS Narrative Admission Review of Systems: CONSTITUTIONAL: No weight loss, fever, chills, + weakness or fatigue. HEENT: Eyes: No visual loss, blurred vision, double vision or yellow sclerae. Ears, Nose, Throat: No hearing loss, sneezing, congestion, runny nose or sore throat. SKIN: No rash or itching, lesions, wounds. CARDIOVASCULAR: No chest pain, chest pressure or chest discomfort, palpitations,edema, orthopnea, syncopal events. RESPIRATORY: No shortness of breath, cough or sputum, wheezing, hemoptysis. GASTROINTESTINAL: No anorexia, nausea, vomiting or diarrhea, abdominal pain, melena, BRBPR. GENITOURINARY: + Increased frequency, history of retention. No dysuria, urgency. NEUROLOGICAL: + Generalized weakness. No headache, dizziness, syncope, paralysis, ataxia, numbness or tingling in the extremities, focal weakness, change in bowel or bladder control, seizure. MUSCULOSKELETAL: + muscle, back pain, joint pain or stiffness. HEMATOLOGIC: + Chronic anemia, easy bleeding/bruising. LYMPHATICS: No enlarged nodes. No history of splenectomy. PSYCHIATRIC: + History of anxiety and depression. ENDOCRINOLOGIC: No reports of sweating, cold or heat intolerance. No polyuria orpolydipsia. ALLERGIES: + History of hives. Vital Signs Vital Signs Vital Signs: 01/08/25 10:35 01/08/25 12:34 01/08/25 14:00 Temperature 97.9 F Temperature Source Oral Pulse Rate 57 L 54 L 54 L Respiratory Rate 18 15 15 Blood Pressure 116/70 124/59 H 116/62 Blood Pressure Mean 85 80 80 Pulse Ox 100 100 100 Oxygen Delivery Method Room Air Room Air Room Air 01/08/25 18:00 Temperature Temperature Source Pulse Rate 55 L Respiratory Rate 17 Blood Pressure 138/78 H Blood Pressure Mean 98 Pulse Ox 99 Oxygen Delivery Method Room Air Weight Weight: 162 lb 1.6 oz Body Mass Index (BMI) 22.6 Physical Exam Narrative Physical Examination: General: Awake, alert, oriented to self, place and recent events, does have underlying dementia of unclear extent, remains cooperative, seated upright in the ED bed, fatigued, in no apparent distress. Skin: Normal color, normal turgor, no icterus, no cyanosis except occasional stage ecchymoses, abrasion with HEENT: AT/NC, EOMI, PERRLA, mildly dry MM, no carotid bruits or JVD noted. Lungs: Mildly dry, decreased bases, appropriate, no rales, ronchi or wheezing. Heart: Regular rate and rhythm; no gallop, rub audible. Abdomen: Soft, mild discomfort to suprapubic palpation but not severe, otherwiseabdomen NTTP, ND, mildly hyperactive l BS, no appreciated HSM. Extremities: No cyanosis, clubbing, or edema. Neurological: Patient awake, alert, oriented as noted, cognitive function decreased baseline with underlying dementia, appears baseline intact; pupils equally reactive to light and accommodation, cranial nerves grossly normal, moving all 4 extremities, no focal deficits, strength severely globally d ecreased Psychiatric: Affect appears fatigued otherwise normal, no acute evidence of depressive or anxiety feelings but does have underlying history. Results Lab / Micro Data 01/08/25 11:49 01/08/25 11:49 Labs: Laboratory Results - last 24 hr 01/08/25 11:49: WBC 3.0 L, RBC 3.58 L, Hgb 11.7 L, Hct 35.4 L, MCV 98.9 H, MCH 32.7 H, MCHC 33.1, RDW Std Deviation 49.3 H, RDW Coeff of Ezequiel 13.4, Plt Count 146 L, MPV 9.0, Immature Gran % (Auto) 0.300, Neut % (Auto) 66.8, Lymph % (Auto)22.9, [place] % (Auto) 8.6, Eos % (Auto) 0.7, Baso % (Auto) 0.7, Absolute Neuts (auto) 2.0, Absolute Lymphs (auto) 0.69 L, Nucleated RBC % 0, Sodium 138, Potassium 4.1, Chloride 103, Carbon Dioxide 26.8, Anion Gap 8, BUN 20 H, Creatinine 0.88, Estim Creat Clear Calc 67.31, Est GFR (MDRD) Non-Af 86, BUN/Creatinine Ratio 23.2 H, Glucose 98, Calcium 9.1, Troponin T High Sens 23 H 01/08/25 12:54: Urine Color Yellow, Urine Clarity Sl. Cloudy, Urine pH 7.0, Ur Specific [place] 1.010, Urine Protein 15 H, Urine Glucose (UA) Normal, Urine Ketones Negative, Urine Occult Blood 25 H, Urine Nitrite Negative, Urine Bilirubin Negative, Urine Urobilinogen Normal, Ur Leukocyte Esterase 500 H, Urine RBC 5-10 SEEN, Urine WBC 50-100 SEEN, Ur Squamous Epith Cells 0-5 SEEN, Urine Bacteria 3+, Urine Mucus 0 SEEN 01/08/25 13:54: Troponin T Hi Sens 2 Hr 23 H 01/08/25 15:45: Troponin T Hi Sens 4Hr 26 H Rhythm Strip Rhythm Strip: Sinus Rhythm Rate: 57 Ectopy: None Imaging Radiology Impression Lumbar Spine MRI 01/08/25 10:53 IMPRESSION: Postsurgical changes, dextroscoliosis, and degenerative disc disease as described above. Reading Location: [facility] Lumbar Spine X-Ray 01/08/25 11:50 IMPRESSION: ADVANCED DEGENERATIVE CHANGES OF THE LUMBAR SPINE. Status post laminectomy and fusion at the L3-L4, L4-L5 and L5-S1 levels with prosthetic disc placement. Dextroconvex scoliosis. Reading Location: [facility] Assessment & Plan Assessment/Plan (1) Weakness of both lower extremities: (2) Acute UTI: PLAN: Plan The patient is an 84 y/o M w/ PMHx: BPH with obstructive pathology, HTN, Chronicback pain s/p priorsurgical intervention, CKD stage II per previous GFR trending, Chronic macrocytic anemia,, Chronic thrombocytopenia who presents to the [facility] ED on with history of onset significant weakness primarily lower extremities prior to ED arrival at his home while attempting to use his walker with difficulty even supporting himself yelling forhis who came and found him still standing and helped him lowered to the ground without any injury but because he could not even get up EMS was called. #1. Severe weakness, debility, adult Adult FTT, secondary to items noted below in addition to AcuteComplicated Urinary Tract Infection complicated by BPH withobstructive pathology, history of intermittent urinary retention's and spinal fusion, history nephrolithiasis, frequent UTIs: Will admit to PCU given mildly indeterminate cardiac enzymes to be cautious, UA upon ED evaluation remarkable, pending UCx, continue IVFs, monitor I/Os, continue IV Rocephin w/ transition as able pending sensitivities and speciation. B PT/OT/case management consulted fordischarge planning. #2. Indeterminate cardiac enzymes, stable, unclear etiology: EKG in ED [], initial trop 23 with repeat delta 23 and most recent 4-hour 26. Will maintain on a monitored bed to assure no acute myocardial infarction with serial cardiac enzymes and repeat EKGs only if necessary. Magnesium level requested. Maintain on aspirin. #3. Chronic macrocytic anemia: Admission CBC with hemoglobin 11.7, MCV 90.9, baseline primarily more recently noted 9-10 range, stable, folic acid and vitamin B12 levels requested, continue to trend. #4. Chronic thrombocytopenia, unclear etiology: Admission platelets 146, previous baseline more recently 113-145, appears consistent, continue to trend. #5. Chronic Kidney Disease Stage II primarily per GFR trend: Admission BUN/Cr 20/0.88, GFR 86, baseline renal function 0.8-1.0 primarily, repeat BMP in AM. #6. BPH with obstructive pathology, history of intermittent urinary retention since his spinal fusion, history of nephrolithiasis, frequent UTIs: Will assure no evidence of any urinary retention especially given UTI as noted, not on any regimen for currently's but clarified to be certain. Patient does follow with [facility] urology. #7. Chronic back pain with chronic right lower extremity radiculopathy: Imaging with no acute findings, lumbar spine and lumbar MRI obtained in the ED, will maintain on fall precautions, PT/OT consulted for discharge planning, will continue patient home regimen but attempted to clarify. #8. Dementia, unclear type with unclear behavioral disturbance history: Will continue patient home memantine and donepezil regimen, unclear exact extent or etiology, complicates presentation, maintain on fall and aspiration precautions, PT/OT/case management consulted for discharge planning. #9. Hypertension: Continue home regimen including Lasix with hold parameters as needed, PRN hydralazine. Holding hydrochlorothiazide as already on Lasix as noted. #10. Hyperlipidemia: From prior records potentially been on statin, currently not listed, clarifying. #11. Anxiety and depression: Will continue patient home sertraline regimen, will cautiously add trazodone but hold for sedation as this may be contributing to weakness. #12. GERD: Will continue patient home PPI. #13. DVT prophylaxis: Lovenox. #14. CODE status: Patient SHAMIR is his who is present and living will is in place. Discussed CODE status at length including difference between FULL code, DNR-CCA and DNR-CC status. Following discussions about the differences in these status, requested Full Code status. Advanced Care Planning Face to Face Time: 16 minutes. Charges/Coding Visit Charges Inpatient E&M: 73178 Init Hosp L3 Procedures Hospitalists Procedures: 23949 Advncd Care Plan 30 Min 01/08/251922 Cosigner Signature (if applicable): CC: Dr. Keyana Aldana MD; Dr. Francisco Bahena MD~ Signed ADDENDUM by Dr. Keyana Aldana MD on 01/08/25 at 1926 Addendum UPDATE: EKG with SR without acute evidence of ischemia. 01/08/251926 Cosigner Signature (if applicable): cc: Dr. Keyana Aldana MD; Dr. Francisco Bahena MD ~* Signed [facility]04-15-2025 Discharge summary [facility] Medical Records Department [address] [place] [address] Emergency Department Summary 01/08/25 MR#: [id number] Acct: [id number] Name: JAVIER BOND Rep #:[id number] : 1940 84 From: Hector Baxter MD PCP: Dr. Francisco Bahena MD Status:REG ER Location: ED ADDENDUM by Dr. Pool Lopez MD on 01/08/25 at 1831 Patient was endorsed to me by Dr. Hector Baxter to check the MRI results on this patient that could barely stand secondary to bilateral lower extremity weakness. I reviewed the radiology report of the results of the MRI which show degenerative changes and dextroscoliosis. In discussion at signout,the plan isthat given his continued weakness and no need for emergent neurosurgery transfer, that he could be admitted here given his bilateral lower extremity weakness. I will discuss patient with the hospitalist for at least observation. This is for his bilateral lower extremity weakness, and UTI. Patient is in stable condition. 01/08/251830 Cosigner Signature (if applicable): cc: Dr. Francisco Bahena MD ~* Signed HPI History of Present Illness Chief Complaint: Weakness Informant: patient, spouse/S.O. and EMS Narrative Narrative: 84-year-old male about an hour prior to arrival states he was using his walker in his house suddenly his legs felt weak and he felt like he could not support himself anymore. He was using his arms tohold himself up with his walker without falling but he felt like he was going to go down so he was yelling for his who came to help him and states that she found him still standing but barely, holding onto his walker with his arms, and she helped lower him to the ground without injury. He was not able to get up because his legs are too weak,and so EMS was called to bring him to the ED. He denies any other prodromal symptoms; he denies any acute pain although he has chronic low back pain, he states it is unchanged for the past 4 years since his fusion surgery, he denies any abdominal pain, recent illness, dyspnea, lightheadedness, headache. He states chronically with his back, he gets some sciatica down his right leg, may be some mild weakness, but has never had anything like this on both sides. He states the right 1 feels worse as it usually is his "bad side." He denies any numbness. He denies any bowel or bladder dysfunction today. He denies saddle anesthesia or numbness elsewhere. [facility] Medical History Left inguinal hernia Groin pain Inguinal hernia bilateral, non-recurrent Right inguinal hernia History of kidney stones History of hiatal hernia Abdominal pain BPH (benign prostatic hyperplasia) Arthritis History of back problems Hypertension Home Medications ?Medication ?Instructions ?Recorded ?Last Taken ?Type acetaminophen 500 mg tablet 1,000 mg PO PRN Pain 04/03 Unknown History hydrochlorothiazide 12.5 mg capsule 12.5 mg PO DAILY d iuretic 04/03/17 01/07/25 History doxycycline hyclate 20 mg tablet 20 mg PO BID infectio n 03/13/19 01/07/25 History metronidazole 0.75 % topical cream 1 applic topical [facility] skin health 07/16/19 01/07/25 History aspirin 81 mg tablet,delayed 81 mg PO [facility] heart health 01/28/21 01/07/25 History release (Rika Low Dose Aspirin) multivitamin 1 tab PO DAILY vitamin 05/1801/07/25 History pantoprazole 40 mg tablet,delayed 40 mg PO DAILY reflu x 05/03/22 01/07/25 History release d-mannose 1 ea PO DAILY 09/24/2301/07 History dupilumab 300 mg/2 mL subcutaneous 300 mg subcut .COMP [facility] skin health 09/24/23 Unknown History pen injector (Dupixent) lisinopril 5 mg tablet 5 mg PO DAILY blood pressure 09/24/23 Unknown History Held on 01/08/25. Instructions: Ordered BACLOFEN SUPPOSITORY 1 supp OTHER DAILY CONSITPAT ION 01/08/25 Unknown History Lactobacillus acidophilus 10 80 mmu cells PO DAILY 01/07/25 History billion cell capsule (NewFlora) donepezil 5 mg tablet 10 mg PO DAILY 01/08/2512/25 History furosemide 20 mg tablet 20 mg PO DAILY 01/08/2512/25 History guaifenesin 600 mg tablet, 600 mg PO BID 01/08/2512/25 History extended release 12 hr (Mucinex) melatonin 5 mg tablet 5 mg PO QHS 01/08/25 5 History memantine 10 mg tablet 10 mg PO BID 01/08/25 History methenamine hippurate 1 gram tablet 1 g PO BID 5 01/07/25 History plecanatide 3 mg tablet (Trulance) 3 mg PO DAILY 01/08 Unknown History Held on 01/08/25. Instructions: MD Ordered polyethylene glycol 3350 17 17 g PO DAILY 01/08/25 History gram/dose oral powder (ClearLax) sertraline 25 mg tablet 25 mg PO DAILY 01/08/2512/25 History trazodone 100 mg tablet 100 mg PO QHS 01/08/2501/07 History triamcinolone acetonide topical DAILY PRN itching 01/07/25 History Allergy/AdvReac Type Severity Reaction Status Date / Time Iodinated Contrast Media Allergy Hives Verified 01/08/25 10:39 (CONTRASTS) azelaic acid (From Finacea) AdvReac Rash Verified 01/08/25 10:39 levofloxacin AdvReac Rash Verified 01/08/25 10:39 meloxicam (From Mobic) AdvReac Nausea Verified 01/08/25 10:39 misoprostol (From Cytotec) AdvReac Nausea Verified 01/08/25 10:39 nabumetone (From Relafen) AdvReac Nausea Verified 01/08/25 10:39 NSAIDS (Non-Steroidal AdvReac Nausea Verified 01/08/25 10:39 Anti-Inflamma sulfamethoxazole (From AdvReac Nausea Verified 01/08/25 10:39 Bactrim) terbinafine AdvReac Nausea Verified 01/08/25 10:39 trimethoprim (From Bactrim) AdvReac Nausea Verified 01/08/25 10:39 valdecoxib (From Bextra) AdvReac Other Verified 01/08/25 10:39 Family History Father Colon cancer Mother Cancer lung Hypertension Brother Cancer Family History no significant family his Surgical History History of left inguinal hernia repair (~07/18/19) History of right inguinal hernia repair History of colonoscopy (~02/2019) history repair left thumb History of hemorrhoidectomy History of bilateral cataract extraction history ureteral stent insertion History of laparoscopic cholecystectomy history lap hiatal hernia repair Hx of repair of right rotator cuff Hx of repair of left rotator cuff history exacorporeal shock wave lithrotripsy Social History household members: spouse Smoking Status: Never smoker alcohol intake: current alcohol intake frequency: a few times a month substance use type: does not use ROS ROS ED Constitutional Constitutional ED: Denies chills or fever(s) Eyes Eyes: Denies change in vision or diplopia ENT ENT ED: Denies rhinorrhea or sore throat Cardiovascular Cardiovascular: Denies chest pain or palpitations Respiratory/Chest Respiratory/Chest: Denies cough or dyspnea Gastrointestinal Gastrointestinal: Denies abdominal pain, constipation, fecal incontinence, nausea or vomiting Genitourinary Genitourinary ED: Reports other Details: no urinary retention ; Denies abdominal discomfort or urinary incontinence Musculoskeletal Musculoskeletal: Reports as per HPI and back pain; Denies neck pain Integumentary Denies rash or wounds Neurologic Neurologic: Reports weakness; Denies headache(s) or paresthesias Psychiatric Psychiatric: Denies anxiety or suicidal thoughts EXAM Physical Exam Const Vital Signs: 01/08/25 10:35 01/08/25 12:34 01/08/25 14:00 Temperature 97.9 F Temperature Source Oral Pulse Rate 57 L 54 L 54 L Respiratory Rate 18 15 15 Blood Pressure 116/70 124/59 H 116/62 Blood Pressure Mean 85 80 80 Pulse Ox 100 100 100 Oxygen Delivery Method Room Air Room Air Room Air Positive well nourished and well developed General Appearance ED: well developed and NAD HEENT Reports moist mucous membranes Negative for trauma or tenderness Eyes PERRL and EOMs intact bilaterally Neck full ROM and supple Resp normal respiratory effort and clear to auscultation bilaterally Cardio regular rate and regular rhythm GI normal to inspection, nondistended, normoactive bowel sounds, soft to palpation and non-tender Auscultation: normoactive bowel sounds Palpation: soft Back/Spine normal to inspection Back/Spine Narrative: Able to sit up with some assistance, well-healed lumbar spine surgical scar, diffuse mild lumbar tenderness nonfocal no step-off. No rashes. General Back: other FROM Lumbar Spine / Lower Back: ROM limited, lumbar spinal tenderness, paraspinal muscle tenderness and straight leg raise negative bilaterally Extremity normal to inspection, full ROM and no pedal edema General Extremety ED: Negative for edema, pulses abnormal or tenderness General Extremity: Negative for edema or pulses abnormal Neuro oriented x3 and no sensory deficits noted Neuro Narrative: Weak proximally in both lower extremities worse on the right, he is able to resist gravity partially. Normal strength both upper extremities. Reflexes aresymmetric and basically absent throughout including his arms. Normal speech. Sensorium / Orientation: alert Motor Exam: strength abnormal and clonus absent Deep Tendon Reflexes: Rt Triceps (C7): 0, Lt Triceps (C7): 0, Rt Biceps (C5, C6): 0, Lt Biceps (C5,C6): 0, Rt Brachioradialis (C6): 0, Lt Brachioradialis (C6): 0, Rt Patellar (L4): 0, Lt Patellar (L4): 0, Rt Ankle (S1): 0 and Lt Ankle(S1): 0 Deep Tendon Reflexes Back: Rt Patellar (L4): 0, Lt Patellar (L4): 0, Rt Ankle (S1): 0 and Lt Ankle (S1): 0 Plantar Reflex: Downgoing: bilateral Psych mental status grossly normal and thought process normal Skin no rashes or lesions noted and no wounds MDM MDM MDM Narrative Medical decision making narrative: Given this patient's history and exam my suspicion is that the etiology of his symptoms is in his low back as opposed to his brain or metabolic disorder or something cardiac, although I am ruling those out with labs and an EKG as well. Obtained three-view x-ray series of the lumbar spine to my interpretation there is no acute fractures, surgical hardware is noted. He is not anticoagulated. Given all of this, and the possibility of cord compression causing this, I thinkthe patient needs a stat MRI. In the meantime, labs are obtained including the urine, EKG, troponin given his weakness. Initial troponin is 23 which is just barely out of the normal range but his EKG is normal, a delta was sent and is higher by only 3 which is a negative delta for ACS, and the rest of his labs are normal. He isactually little leukopenic without being neutropenic. His urine shows signs of infection and significant pyuria without signs of contamination. Therefore I will send this for culture and treat it empirically although he has not been having new urinary symptoms. It is unclear if this is related to his symptoms, but given his focal neurologic weakness below the waist, I still think getting an MRI of his back is indicated. He does still have lower extremity weakness and will likely need to be admitted. Checked out to oncoming ED physician at shift change. History & Record Review Discussion w/independent historian: Patient and Significant other Additional record(s) reviewed:: Prior outpatient record (Reviewed Clinisync, no record of prior MRIalthough patient states that exists) Lab Data Attestation: I reviewed the patient's lab results. Labs: Laboratory Results - last 24 hr 01/08/25 01/08/25 01/08/25 11:49 12:54 15:45 WBC 3.0 L RBC 3.58 L Hgb 11.7 L Hct 35.4 L MCV 98.9 H MCH 32.7 H MCHC 33.1 RDW Std Deviation 49.3 H RDW Coeff of Ezequiel 13.4 Plt Count 146 L MPV 9.0 Immature Gran % (Auto) 0.300 Neut % (Auto) 66.8 Lymph % (Auto) 22.9 [place] % (Auto) 8.6 Eos % (Auto) 0.7 Baso % (Auto) 0.7 Absolute Neuts (auto) 2.0 Absolute Lymphs (auto) 0.69 L Nucleated RBC % 0 Sodium 138 Potassium 4.1 Chloride 103 Carbon Dioxide 26.8 Anion Gap 8 BUN 20 H Creatinine 0.88 Estim Creat Clear Calc 67.31 Est GFR (MDRD) Non-Af 86 BUN/Creatinine Ratio 23.2 H Glucose 98 Calcium 9.1 Troponin T High Sens 23 H Troponin T Hi Sens 4Hr 26 H Urine Color Yellow Urine Clarity Sl. Cloudy Urine pH 7.0 Ur Specific [place] 1.010 Urine Protein 15 H Urine Glucose (UA) Normal Urine Ketones Negative Urine Occult Blood 25 H Urine Nitrite Negative Urine Bilirubin Negative Urine Urobilinogen Normal Ur Leukocyte Esterase 500 H Urine RBC 5-10 SEEN Urine WBC 50-100 SEEN Ur Squamous Epith Cells 0-5 SEEN Urine Bacteria 3+ Urine Mucus 0 SEEN Radiography Diagnostic Testing: Clinical Impression(s) from Imaging Studies Lumbar Spine X-Ray 01/08/25 11:50 IMPRESSION: ADVANCED DEGENERATIVE CHANGES OF THE LUMBAR SPINE. Status post laminectomy and fusion at the L3-L4, L4-L5 and L5-S1 levels with prosthetic disc placement. Dextroconvex scoliosis. Reading Location: [facility] Rhythm Strip Rhythm Strip: Sinus Rhythm Rate: 57 Ectopy: None EKG Initial EKG: Attestation: I personally reviewed and interpreted this EKG as follows: Interpretation: No Acute Injury Pattern and Sinus Bradycardia Comments: Nml axis & intervals; nml EKG Discharge Plan Triage Chief Complaint: Weakness ED Provider: Hector Baxter Dx/Rx/DC Orders Clinical Impression: Weakness of both lower extremities, Acute UTI, Inability to walk Prescriptions: No Action metronidazole 0.75 % cream 1 applic TOPICAL DAILY acetaminophen 500 MG tablet 1,000 mg PO PRN hydrochlorothiazide 12.5 MG capsule 12.5 mg PO DAILY Patient Comments: doxycycline hyclate 20 mg tablet 20 mg PO BID Patient Comments: aspirin [Rika Low Dose Aspirin] 81 mg Tablet,Delayed Release (Dr/Ec) 81 mg PO QHS multivitamin Tablet 1 tab PO DAILY pantoprazole 40 mg Tablet,Delayed Release (Dr/Ec) 40 mg PO DAILY lisinopril 5 mg tablet 5 mg PO DAILY d-mannose Powder 1 ea PO DAILY Rx Instructions: 1/4 teaspoon on cereal each am. Dupixent Pen 300 mg/2 mL pen injector 300 mg subcut .COMPLEX Rx Instructions: 300 mg subcutaneously EVERY 6 WEEKS; donepezil 5 mg tablet 10 mg PO DAILY trazodone 100 mg tablet 100 mg PO QHS furosemide 20 mg tablet 20 mg PO DAILY memantine 10 mg tablet 10 mg PO BID methenamine hippurate 1 gram tablet 1 g PO BID sertraline 25 mg tablet 25 mg PO DAILY triamcinolone acetonide topical DAILY PRN (Reason: itching) melatonin 5 mg tablet 5 mg PO QHS NewFlora 10 billion cell capsule 80 mmu cells PO DAILY polyethylene glycol 3350 [ClearLax] 17 gram/dose powder 17 g PO DAILY guaifenesin [Mucinex] 600 mg tablet extended release 12hr 600 mg PO BID Trulance 3 mg tablet 3 mg PO DAILY Patient Comments: ON 12/13/24 BACLOFEN SUPPOSITORY 1 supp OTHER DAILY Primary Care Provider: Francisco Bahena Referrals: Francisco Bahena MD [Primary Care Provider] - Print Language: Tanzanian Disposition Disposition: Acute Care Hospital [facility] What to do if you have Problems For any increased pain, shortness of breath, bleeding, nausea or vomiting, chestpain, or any unexpected problems, contact your Primary Care Provider. Call [facility] ([phone]) or report tothe closest Emergency Room. Call 911 if necessary. 01/08/25 1630 Cosigner Signature (if applicable): CC: Dr. Francisco Bahena MD ~ Signed [facility]04-15-2025 Radiology Diagnostic study note [facility] Imaging Services [address] [place] [address] Lumbar Spine 2 or 3 Views MR#: [id number] Acct: [id number] Name: JAVIER BOND Rep #: [id number] : 1940 84 From: Vasu Hernandez MD PCP: Dr. Francisco Bahena MD Status: REG ER Study:Lumbar Spine 2 or 3 Views Date of Exam: 01/08/25 Exam# [id number] Ordering Dr: Casey Baxter MD PROCEDURE: LUMBAR SPINE 2 OR 3 VIEWS 01/08/2025 REASON FOR EXAM: BACK PAIN, BLE WEAKNESS TECHNIQUE: 2 view(s) of the lumbar spine COMPARISON: None FINDINGS: Vertebrae: The patient is status post laminectomy and intrapedicular screw and randy fixation at the L3-L4, L4-L5 and L5-S1 levels. Spondylosis. Discs: Prosthetic disc placement. Disc space narrowing. Alignment: Dextroscoliosis. Other: Fecal material is seen in the colon. RAD/Lumbar Spine 2 or 3 Views IMPRESSION: ADVANCED DEGENERATIVE CHANGES OF THE LUMBAR SPINE. Status post laminectomy and fusion at the L3-L4, L4-L5 and L5-S1 levels with prosthetic disc placement. Dextroconvex scoliosis. Reading Location: [place] [address] CC: Dr. Hector Baxter MD; Dr. Francisco Bahena MD ~ 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: Signed [facility]04-14-2025 History of Present illness Narrative* Laurel Srivastava RDMS - 01/07/2025 2:30 PM EDT Radiology Service Progress Note PATIENT NAME: Javier Bond DATE OF SERVICE: January 07, 2025 TIME: 2:32 PM PATIENT IDENTITY VERIFICATION COMPLETED USING TWO (2) IDENTIFIERS: Name and Date of confirmedby patient verbally. FALL SCREENING: Has the patient had 2 falls in the last year or 1 fall with injury or currently using an Ambulatory Assistive Device (Walker, Cane, Wheelchair, Crutches, etc.)? Yes, Patient High Riskfor Falls What interventions were put in place to prevent falls during this visit? Instructed Patient to Callfor Help if Needed, Offered Assistance with Transfers/Clothing, Instructed Patient to Remain Seated(Not on Exam Table) Until Exam, Increased Observations by Caregivers, and Patient Refused Interventi ons/Assistance PATIENT GENDER DATA: Assigned male at PATIENT RELEVANT IMPLANT DATA REVIEWED: Not Applicable PATIENT PRESENTS WITH AN IMPLANTABLE OR ATTACHED BLOW PIT OPERATOR: No RADIOLOGY DEPARTMENT: Ultrasound PERIPHERAL IV DATA: Not applicable SIGNED BY: Laurel Srivastava RDMS RVT January 07, 2025 2:32 PM documented in this [facility] History of Present illness Narrative* Angela Harry PA-C - 01/02/2025 1:28 PM EDT Images from the original note were not included. UROLOGY NOTE Chief complaint: kidney stones Javier Bond is a 84 year old male who presents today for kidney stone management and prevention counseling. Interval hx January 29, 2022 - Emphasis on increasing fluid intake and citrus - Discussed video urodynamics as recommended by Dr. Coles before proceeding with surgical intervention. Patient would like to defer at this time but will reach out if he decides otherwise. - New imaging and [facility] in about 1 year for stone monitoring Interval hx December 28, 2023 Patient returns to clinic having seen Yolanda Victoria CNP for recurrent UTIs in late Sep and early Oct, with several instances of contact with Dr. Coles (as well as TURP in 01/16). He returns today for known stone reassessment. No stone- related pain nor urinary sx. - Reviewed CT scans from August compared to December 2021 and stones appear very stable on imaging - Plan to complete new US/KUB in about 1 year - UCx ordered based on UA today; possibly atb RX depending on S/S Interval hx January 02, 2025 Patient returns to clinic having completed new US and KUB showing left renal stone(s). There is no height or weight on file to calculate BMI. 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/24/2022 S/p removal 08/2022 Essential hypertension, benign Essential tremor 11/21/2023 Family history of malignant neoplasm of gastrointestinal tract GERD (gastroesophageal reflux disease) 03/25/2009 Hiatal hernia 06/09/2022 History of compression fracture of spine 11/05/2019 Hypercalciuria, idiopathic 02/11/2020 Hypertrophy of prostate without urinary obstruction and other lower urinary tract symptoms (LUTS) Ilioinguinal neuralgia of left side 09/27/2019 Internal hemorrhoids without mention of complication Iron deficiency anemia 07/23/[address] 10/04/2022 DPA: Peter Lumbar degenerative disc disease 09/14/2012 Lumbar radiculopathy 07/03/2020 Medicare annual wellness visit, subsequent 09/10/2021 Medicare Part B: Not able to find Last done: 09/10/2021 Memory deficits 11/21/202310/2023: w/u ok, patient declined med management Nephrolithiasis 07/04/2007 Neuropathy - (NOS) 08/30/2024 NCS: 08/2024 Oropharyngeal dysphagia 12/25/2020 Osteoporosis 01/28/2020 Other specified anemias 03/16/2022 Acute blood loss 11/2020 (post surgery) Pain in both hands 06/21/2024 Rheum factor+(05/2024) Peripheral edema 05/21/2022 Primary osteoarthritis of both first carpometacarpal joints 05/04/2018 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 09/09/2015 Rosacea 09/09/2015 S/P lumbar spinal fusion 12/15/2020 Sepsis due to Gram-negative organism with septic shock (HCC) 12/17/2020 Proteus mirabilis UTI Situational anxiety 06/27/2019 Situational depression 02/27/2021 Spondylosis of lumbar region without myelopathy or radiculopathy 03/10/2018 Thyroid nodule 12/03/[address] Zacarias Unstable gait 05/21/2021 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 05/11/2021 Weakness of both lower extremities 07/04/2024 PAST SURGICAL HISTORY Procedure Laterality Date ARTHRP INTERCARPAL/CARP/MTCRPL JT INTERPOSITION Left 05/24/2018 Left thumb CMC arthroplasty with LRTI and MCP pinning of left thumb COLONOSCOPY FLX DX W/COLLJ SPEC WHEN PFRMD 07/17/082012 COLONOSCOPY FLX DX W/COLLJ SPEC WHEN PFRMD 03/28/2019 Ariel Alvarado CYSTO.PANMIKALA 02/20/2021 stent removal EGD TRANSORAL BIOPSY SINGLE/MULTIPLE 12/26/2008 ESOPHAGOGASTRODUODENOSCOPY TRANSORAL DIAGNOSTIC 03/18/2020 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 PERIPHERAL NERVE BLOCK (MOD 59) Bilateral 11/01/2016, 03/28/2018 bilateral lumbar facet medial branch nerve block (l4-5, L5-S1) REMOVAL OF HEMORRHOID CLOT 06/2017 SKIN BIOPSY HX SPINAL FUSION,ANT,EA ADNL LEVEL 2000 TONSILLECTOMY HX Childhood TRANSURETHRAL ELEC-SURG PROSTATECTOM 01/14/2023 XCAPSL CTRC RMVL INSJ IO LENS PROSTH W/O ECP Bilateral 08/25/2016 Family History Problem Relation Age of Onset Cancer Mother lung Cancer Father colon Cancer Brother lymphoma Social History Tobacco Use Smoking status: Former Current packs/day: 0.00 Types: Cigarettes Quit date: 06/24/1963 Years since quittin.5 Smokeless tobacco: Never Tobacco comments: quit in his 20's - smoked socially while in college Vaping Use Vaping status: Never Used Substance Use Topics Alcohol use: Yes Comment: 1-2 drinks in A MONTH Drug use: No Current Outpatient Medications on File Prior to Visit Medication Sig memantine (NAMENDA) 10 mg tablet Per Neuro. Dr. Yu sertraline (ZOLOFT) 25 mg tablet Take 1.5 tablets by mouth once daily. Methenamine Hippurate (HIPREX) 1 gram tablet Take 1 tablet by mouth two times a day. baclofen suppository 10 mg (CPD) 1 Suppository by RECTAL route once daily. Unwrap and insert as directed. polyethylene glycol 3350 (MIRALAX) 17 gram/dose powder Take 17 g by mouth once daily. Dissolve dosein 4 - 8 ounces of liquid and take as directed. metroNIDAZOLE 0.75 % cream Apply to affected area once daily. traZODone (DESYREL) 100 mg tablet Take 1 tablet by mouth daily at bedtime. pantoprazole DR (PROTONIX) 40 mg tablet Take 1 tablet by mouth two times a day. hydroCHLOROthiazide 12.5 mg tablet Take 1 tablet by mouth once daily. donepezil (ARICEPT) 5 mg tablet Take 2 tablets by mouth daily at bedtime. furosemide (LASIX) 20 mg tablet Take 1 tablet by mouth once daily. dupilumab 300 mg/2 mL subcutaneous syringe ([employer]) Inject 2 mL subcutaneously every 4 weeks. PerJessi: Dr. Mariee Lactobacillus acidophilus (PROBIOTIC ACIDOPHILUS ORAL) Take 1 capsule by mouth once daily. d-mannose powd Take 1/2 teaspoon by mouth once daily. triamcinolone acetonide (KENALOG) 0.1 % cream Apply 1 application to affected area as directed. doxycycline 20 mg tablet Take 20 mg by mouth twice daily. multivit-min/iron/folic acid/K (ADULTS MULTIVITAMIN ORAL) Take 1 tablet by mouth once daily. MEDICAL SUPPLY KAFO for right lower extremity. aspirin 81 mg chewable tablet Take 1 tablet by mouth once daily. lisinopril (ZESTRIL) 5 mg tablet Take 1 tablet by mouth once daily. (Patient not taking: Reported on 12/31/2024) acetaminophen (TYLENOL) 500 mg tablet Take 2 tablets by mouth every 8 hours as needed for Pain or Fever. No current facility-administered medications on file prior to visit. ALLERGIES Allergen Reactions Contrast Dye Hives Finacea [Azelaic Ac* Rash Bactrim [Sulfametho* Unknown Bextra [Valdecoxib] Unknown Cardura [Doxazosin * Unknown Ciprofloxacin Unknown Cytotec [Misoprosto* Unknown Fosamax [Alendronat* Vomiting heartburn, vomiting Gabapentin Mental Status Change Ketoconazole Unknown Levofloxacin Other: See Comments Pseudomonas Mobic [Meloxicam] Unknown Nitrofurantoin Other: See Comments Per , "he didn't feel well" - unsure of reaction Nsaids (Non-Steroid* Unknown GI UPSET Relafen [Nabumetone] Unknown Terbinafine GI Upset Appointment on 12/15/2024 Component Date Value Ref Range Status Culture, Urine 12/17/2024 >=100,000 CFU/ml Escherichia coli (A) Final Stone composition: Calculus Type Date Value Ref Range Status 02/02/2021 BLADDER STONE Final 02/02/2021 RIGHT KIDNEY STONE Final Calculus Analysis Date Value Ref Range Status 02/02/2021 Final This test was developed and its performance characteristics determined by [facility] [place] ([facility]). Comment: It has not been cleared or approved by the FDA. [facility] is regulated under CLIA as qualified to perform high complexity testing. This test is used for clinical purposes. It should not be regarded as investigational or for research. 02/02/2021 Final This test was developed and its performance characteristics determined by [facility] [place] ([facility]). Comment: It has not been cleared or approved by the FDA. [facility] is regulated under CLIA as qualified to perform high complexity testing. This test is used for clinical purposes. It should not be regarded as investigational or for research. Images: US: Results for orders placed during the hospital encounter of 12/27/24 US KIDNEY/BLADDER Narrative * * *Final Report* * * DATE OF EXAM: Dec 27 2024 2:21PM [facility] [id number] - US KIDNEY/BLADDER / PROCEDURE REASON: multiple diagnoses * * * * Physician Interpretation * * * * EXAMINATION: US KIDNEY/BLADDER, XR ABDOMEN 3V KUB W/OBLIQUES RENAL ULTRASOUND AND KUB CLINICAL HISTORY: hx. of nephrolithiasis and frequent UTI's. Pt is not currently experiencing any sypmtoms.. Screening for genitourinary condition Nephrolithiasis Complicated UTI (urinary tract infection) . TECHNIQUE: Sonography of the kidneys and urinary bladder was performed. Images were obtained and stored in a permanent archive. Supine KUB also performed. MQ: UR_1 COMPARISON: CT scan from 07/25/2024 RESULT: RENAL ULTRASOUND: Right Kidney: -Renal length: 11.5 cm -Parenchyma: Normal echogenicity and thickness. -Collecting system: No hydronephrosis. -Calculus: None -Lesion: None Left Kidney: Portions of LEFT kidney have limited detail. -Renal length: 10.9 cm -Parenchyma: Normal echogenicity and thickness. -Collecting system: No hydronephrosis. -Calculus: 8 mm renal calculus at mid kidney -Lesion: None Bladder: Normal sonographic appearance. 124 cc prevoid volume and 52 cc post void volume. KUB: 8 mm calculus at mid kidney. Possible additional 3 mm calculus medially at the upper LEFT kidney. No gas-filled bowel dilatation. The visualized lung bases are clear. Changes in the spine are similar to prior CT scan including scoliosis, degenerative change, and postsurgical change with hardware. - Impression IMPRESSION: RENAL ULTRASOUND AND KUB: Left-sided nephrolithiasis is visible on ultrasound and radiograph. No hydronephrosis. 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: [facility] Transcribe Date/Time: Dec 30 2024 6:21A Dictated by : NELLI SAUNDERS MD This examination was interpreted and the report reviewed and electronically signed by: NELLI SAUNDERS MD on Dec 30 2024 6:24AM EST Results for orders placed during the hospital encounter of 12/27/24 XR ABDOMEN 3V KUB W/OBLIQUES Narrative * * *Final Report* * * DATE OF EXAM: Dec 27 2024 2:40PM [id number] [id number] - XR ABDOMEN 3V KUB W/OBLIQUES / PROCEDURE REASON: multiple diagnoses * * * * Physician Interpretation * * * * EXAMINATION: US KIDNEY/BLADDER, XR ABDOMEN 3V KUB W/OBLIQUES RENAL ULTRASOUND AND KUB CLINICAL HISTORY: hx. of nephrolithiasis and frequent UTI's. Pt is not currently experiencing any sypmtoms.. Screening for genitourinary condition Nephrolithiasis Complicated UTI (urinary tract infection) . TECHNIQUE: Sonography of the kidneys and urinary bladder was performed. Images were obtained and stored in a permanent archive. Supine KUB also performed. MQ: UR_1 COMPARISON: CT scan from 07/25/2024 RESULT: RENAL ULTRASOUND: Right Kidney: -Renal length: 11.5 cm -Parenchyma: Normal echogenicity and thickness. -Collecting system: No hydronephrosis. -Calculus: None -Lesion: None Left Kidney: Portions of LEFT kidney have limited detail. -Renal length: 10.9 cm -Parenchyma: Normal echogenicity and thickness. -Collecting system: No hydronephrosis. -Calculus: 8 mm renal calculus at mid kidney -Lesion: None Bladder: Normal sonographic appearance. 124 cc prevoid volume and 52 cc post void volume. KUB: 8 mm calculus at mid kidney. Possible additional 3 mm calculus medially at the upper LEFT kidney. No gas-filled bowel dilatation. The visualized lung bases are clear. Changes in the spine are similar to prior CT scan including scoliosis, degenerative change, and postsurgical change with hardware. - Impression IMPRESSION: RENAL ULTRASOUND AND KUB: Left-sided nephrolithiasis is visible on ultrasound and radiograph. No hydronephrosis. 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: BRIAN Transcribe Date/Time: Dec 30 2024 6:21A Dictated by : NELLI SAUNDERS MD This examination was interpreted and the report reviewed and electronically signed by: NELLI SAUNDERS MD on Dec 30 2024 6:24AM EST Assessment/Plan: Encounter Diagnosis ICD-10-CM 1. Nephrolithiasis N20.0 US KIDNEY/BLADDER XR ABDOMEN 3V KUB W/OBLIQUES 2. Screening for genitourinary condition Z13.89 UA DIP, URINE (POC) - Reviewed US and KUB showing overall stable left renal stone(s) - New imaging in about 1 year to reassess/monitor General stone prevention guidelines: Fluid intake - #1 reason why people form stones - not enough fluid! Recommend increasing water/fluid intake (2.5-3 L/day or 80-100 fluid oz/day), including nighttime hydration. We recommend emptying your bladder and drinking 1-2 glasses of water prior to bed, then getting up at least once during the night to empty your bladder again and drinking 1 more glass of water before returning to bed. All fluids count but water is best. [place] intake - Recommend increasing dietary citrate intake. Adding more fruits & vegetables toyour diet; in particular citrus fruits (alireza/limes/lemonade/melons/tomatoes). One can add 4 oz oflemon juice diluted in 32 oz of water daily to start. If diet changes are too difficult we can presc ribe a medication, potassium citrate, that can help increase your citrate levels. Sodium intake - Recommend a low sodium diet <2000mg/d. Read food labels, choose low sodium options, avoid canned, frozen or boxed meals, eat more fresh foods, and possibly add a fish oil supplement daily (2000mg/d) Calcium intake - Recommend 2-3 servings of calcium per day. Not advisable for stone patients to restrict calcium intake as it is very important for good bone, muscle, and tissue health. Decrease soft drinks (has phosphoric acid). Protein intake: about 1 g of protein per kilo body weight per day. Patients with high urine oxalate: avoid spinach, nuts, seeds, potatoes. Foods like banana, avocado,soybean, eufemia, cereals are good for you. Drink enough fluids each day. If you are not producing enough urine, your health care provider will recommend you drink at least 3 liters of liquid each day. This equals about 3 quarts (about ten 10-ounce glasses). This is a great way to lower your risk of forming new stones. Remember to drink more to replace fluids lost when you sweat from exercise or in hot weather. All fluids count toward your fluid intake. But it's best to drink mostly no-calorie or low-calorie drinks. This may mean limiting sugar-sweetened or alcoholicdrinks. Knowing how much you drink during the day can help you understand how much you need to drink to produce 2.5 liters of urine. Use a household measuring cup to measure how much liquid you drink for a day or two. Drink from bottles or cans with the fluid ounces listed on the label. Keep a log, and addup the ounces at the end of the day or 24-hour period. Use this total to be sure you are reaching your daily target urine amount of at least 85 ounces (2.5 liters) of urine daily. Health care providers recommend people who form cystine stones drink more liquid than other stone formers. Usually 4 liters of liquid is advised to reduce cystine levels in your urine. Reduce the amount of salt in your diet. This tip is for people with high sodium intake and high urine calcium or cystine. Sodium can cause both urine calcium and cystine to be too high. Your health care provider may advise you to avoid foods that have a lot of salt. The Centers for Disease Control (CDC) and other health groups advise noteating more than 2,300 mg of salt per day. The following foods are high in salt and should be eatenin moderation: Cheese (all types) Most frozen foods and meats, including salty cured meats, deli meats (cold cuts), hot dogs, bratwurst and sausages Canned soups and vegetables Breads, bagels, rolls and baked goods Salty snacks, like chips and pretzels Bottled salad dressings and certain breakfast cereals Pickles and olives Casseroles, other "mixed" foods, pizza and lasagna Canned and bottled sauces Certain condiments, table salt and some spice blends Eat the recommended amount of calcium. If you take calcium supplements, make sure you aren't getting too much calcium. On the other hand make sure you aren't getting too little calcium either. Talk with your health care provider or dietitian about whether you need supplements. Good sources of calcium to choose from often are those low in salt. Eating calcium-rich foods or beverages with meals every day is a good habit. There are many non-dairy sources of calcium, such as calcium-fortified non-dairy milks. There are good choices, especially if you avoid dairy. You can usually get enough calcium from your diet without supplements if you eat [id number] servings of calcium-rich food. Many foods and beverages have calcium in them. Some foods and beverages that might be easy to include on a daily basis with meals are: Table of Foods Rich in Calcium Eat plenty of fruits and vegetables. Eating at least five servings of fruits and vegetables daily is recommended for all people who formkidney stones. Eating fruits and vegetables give you potassium, fiber, magnesium, antioxidants, phytate and citrate, all of which may help keep stones from forming. A serving means one piece of fruit or one potato or one cup of raw vegetables. For cooked vegetables, a serving is cup. If you are worried you may not be eating the right amount of fruits and vegetables, talk to your health care provider about what will be best for you. Eat foods with low oxalate levels. This recommendation is for patients with high urine oxalate. Eating calcium-rich foods (see table above) with meals can often control the oxalate level in your urine. Urinary oxalate is controlled because eating calcium lowers the oxalate level in your body. But if doing that does not control your urine oxalate, you may be asked to eat less of certain high-oxalate foods. Nearly all plant foods have oxalate, but a few foods contain a lot of it. These include spinach, rhubarb and almonds. It is usually not necessary to completely stop eating foods that contain oxalate. This needs to be determined individually and depends on why your oxalate levels are high in the first place. Eat less meat. If you make cystine or calcium oxalate stones and your urine uric acid is high, your health care provider may tell you to eat less animal protein. If your health care provider thinks your diet is increasing your risk for stones, he or she will tell you to eat less meat, fish, seafood, poultry, pork, rodríguez, mutton and game meat than you eat now. This might mean eating these foods once or twice rather than two or three times a day, fewer times during the week, or eating smaller portions when you do eat them. The amount to limit depends on how much you eat now and how much your diet is affecting your uric acid levels. https://www.urologyhealth.org/urology-a-z/k/kidney-stones#Prevention%20of%20Futu re%20Stones RTC in 12 months w/ new US and KUB. I spent a total of 20 minutes on the date of the service which included preparing to see the patient, [id number] patient care, completing clinical documentation, obtaining and/or reviewing separately obtained history, counseling and educating the patient/family/caregiver, ordering medications, medina ts, or procedures, and communicating results to the patient/family/caregiver. Angela Harry PA-C documented [facility] this [facility] Instructions* Patient Instructions* Francisco Bahena MD - 12/31/2024 2:33 PM EDT Stay off the lisinopril and stay on the hydrochlorothiazide. Check BP's 4 times a week. Two in Am and two in PM. Goal is a BP below 150/90. If he starts to stay below 115/70 morning and evening stop the hydrochlorothiazide. Please get labs and urine test done on or after 06/21/2025 prior to your next visit. Screening schedule The following prevention plan is recommended: Advance Directive Discussion due on 09/26/2024 Covid-19 Vaccine() due on 01/04/2025 WHAT YOU CAN DO TO PREVENT FALLS Many falls can be prevented. By making some changes, you can lower your chances of falling. Four things YOU can do to prevent falls for you* and your caregiver 1. Begin a regular exercise program Exercise is one of the most important ways to lower your chances of falling. It makes you stronger and helps you feel better. Exercises that improve balance and coordination (like Sven Chi) are the most helpful. Lack of exercise leads to weakness and increases your chances of falling. Ask your doctor or health care provider about the best type of exercise program for you. 2. Have your health care provider review your medicines Have your doctor or pharmacist review all the medicines you take, even [id number] medicines. As you get older, the way medicines work in your body can change. Some medicines, or combinations of medicines, can make you sleepy or dizzy andcan cause you to fall. 3. Have your vision checked Have your eyes checked by an eye doctor at least once a year. You may be wearing the wrong glasses or have a condition like glaucoma or cataracts that limits your vision. Poor vision can increase your chances of falling. 4. Make your home safer About half of all falls happen at home. To make your home safer: Remove things you can trip over (like papers, books, clothes, and shoes) from stairs and places where you walk. Remove small throw rugs or use double-sided tape to keep the rugs from slipping. Keep items you use often in cabinets you can reach easily without using a step stool. Have grab bars put in next to your toilet and in the tub or shower. Use non-slip mats in the bathtub and on shower floors. Improve the lighting in your home. As you get older, you need brighter lights to see well. Hang light-weight curtains or shades to reduce glare. Have handrails and lights put in on all staircases. Wear shoes both inside and outside the house. Avoid going barefoot or wearing slippers. For more information, contact: Centers for Disease Control and Prevention www.cdc.gov/injury * This information may not apply if you have certain medical conditions. [facility] History of Present illness Narrative* Francisco Bahena MD - 12/31/2024 2:00 PM EDT Images from the original note were not included. Javier Bond is a 84 year old male here for a Medicare wellness visit. Medicare Health Risk Assessment General Health Fair Exercise: Minutes/Day 0 min Exercise: Days/Week 0 days Alcohol: Daily Use Monthly or less Alcohol: Drinks/Day 1 or 2 Alcohol: 6 or more drinks Never Feel off balance Yes Concerns: Teeth/Dentures declined Concerns: Sexual function declined Troubled by feelings Irritable Frequency: Eating healthy diet Nearly every day ADLs requiring help Grocery shopping; Cooking; Housework Safety precautions in home/vehicle No Smoke, vape, chews tobacco No Difficulty hearing No Difficulty seeing No Current Providers Specialists: I have reviewed specialist-related care of the patient in the medical record. Current care team: Patient Care Team: Francisco Bahena MD as PCP - General (Family Medicine) Alok Marroquin MD as Referring (Gastroenterology) Sofia Wilde MD (Thoracic Surgery) Trinidad Roque APRN.CNP as Director Of Automation (Family Medicine) Cherelle Benavides PA-C as Director Of Automation (Family Medicine) Medical/Family history review Reviewed and updated problem list, medical/surgical/family/social history, medications, and allergies. Opioid use review Opioid Medications (last 90 days) No data to display Anxiety/Depression screening PHQ-2 Score: 0 (Lower risk for depression) Recommendation: no further intervention at this time Cognitive screening Cognitive screening reviewed and Patient has known cognitive impairment. Functional Observation Was the patient's Timed Up & Go test unsteady or >= 12 seconds? Patient uses a walker for stability Advance Care Planning Surrogate decision maker and/or advance care plan documented Measurements BP 118/80 Pulse 62 Resp 18 Wt 73 kg (161 lb) SpO2 100% BMI 22.45 kg/m Vision Screening: Follows with optometry/ophthalmology Assessment/Plan Medicare annual wellness visit, subsequent (Z00.00) - Counseled on healthy diet and regular exercise - Fall avoidance information provided - Personalized prevention plan provided See below Chief Complaint Patient presents with: Medicare Wellness Exam HPI Javier Bond is a 84 year old male who presents here today for Chronic Medical Conditions. and Medicare Annual Visit. Patient with hx of HTN, GERD, BPH, chronic back pain, Depression, unstable gait, osteoporosis, and those as below Patient sees Hematology/oncology next appointment 05/2025 Patient sees Urology 04/2025 Patient sees Spine Health 02/2025 Patient see Neurology next visit 12/2024 Patient sees Colon Rectal next visit 12/2024 Patient had pelvic floor testing and Colorectal provider has him doing baclofen suppositories and Miralax and this has significantly helped reduce his constipation issues., Since being off the lisinopril his BP has been running 120-140/70's for the most part. Though he still feels cold. No syncope. Past medical history, appointments, medications, allergies reviewed. 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/24/2022 S/p removal 08/2022 Essential hypertension, benign Essential tremor 11/21/2023 Family history of malignant neoplasm of gastrointestinal tract GERD (gastroesophageal reflux disease) 03/25/2009 Hiatal hernia 06/09/2022 History of compression fracture of spine 11/05/2019 Hypercalciuria, idiopathic 02/11/2020 Hypertrophy of prostate without urinary obstruction and other lower urinary tract symptoms (LUTS) Ilioinguinal neuralgia of left side 09/27/2019 Internal hemorrhoids without mention of complication Iron deficiency anemia 07/23/[address] 10/04/2022 DPA: Peter Lumbar degenerative disc disease 09/14/2012 Lumbar radiculopathy 07/03/2020 Medicare annual wellness visit, subsequent 09/10/2021 Medicare Part B: Not able to find Last done: 09/10/2021 Memory deficits 11/21/202310/2023: w/u ok, patient declined med management Nephrolithiasis 07/04/2007 Neuropathy - (NOS) 08/30/2024 NCS: 08/2024 Oropharyngeal dysphagia 12/25/2020 Osteoporosis 01/28/2020 Other specified anemias 03/16/2022 Acute blood loss 11/2020 (post surgery) Pain in both hands 06/21/2024 Rheum factor+(05/2024) Peripheral edema 05/21/2022 Primary osteoarthritis of both first carpometacarpal joints 05/04/2018 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 09/09/2015 Rosacea 09/09/2015 S/P lumbar spinal fusion 12/15/2020 Sepsis due to Gram-negative organism with septic shock (HCC) 12/17/2020 Proteus mirabilis UTI Situational anxiety 06/27/2019 Situational depression 02/27/2021 Spondylosis of lumbar region without myelopathy or radiculopathy 03/10/2018 Thyroid nodule 12/03/[address] Zacarias Unstable gait 05/21/2021 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 05/11/2021 Previous Surgical History PAST SURGICAL HISTORY Procedure Laterality Date ARTHRP INTERCARPAL/CARP/MTCRPL JT INTERPOSITION Left 05/24/2018 Left thumb CMC arthroplasty with LRTI and MCP pinning of left thumb COLONOSCOPY FLX DX W/COLLJ SPEC WHEN PFRMD 07/17/08, 2012 COLONOSCOPY FLX DX W/COLLJ SPEC WHEN PFRMD 03/28/2019 WC-R. Cebul CYSTO.PANENDO 02/20/2021 stent removal EGD TRANSORAL BIOPSY SINGLE/MULTIPLE 12/26/2008 ESOPHAGOGASTRODUODENOSCOPY TRANSORAL DIAGNOSTIC 03/18/2020 EGD EXCISION OF CYST squamous cell on head EYE SURGERY HX HERNIA REPAIR HX LAP, REVISION DEMETRIO FUNDOPLASTY 03/11/2009 hiatal hernia LAPAROSCOPY SURG CHOLECYSTECTOMY 03/11/2009 LITHOTRIPSY XTRCORP SHOCK WAVE 1982,12/07/2006, 2011 NEPHROLITHOTOMY REMOVAL STAGE 1 Right 11/28/2006, 2012 (R) ureteroscopic OPEN REPAIR OF ROTATOR CUFF ACUTE Right 12/06/2002 OPEN REPAIR OF ROTATOR CUFF ACUTE Left 08/26/2004 PAST SURGICAL HISTORY OF 08/2022 re-moval of esophageal diverticulum. PERIPHERAL NERVE BLOCK (MOD 59) Bilateral 11/01/2016, 03/28/2018 bilateral lumbar facet medial branch nerve block (l4-5, L5-S1) REMOVAL OF HEMORRHOID CLOT 06/2017 SKIN BIOPSY HX SPINAL FUSION,ANT,EA ADNL LEVEL 2001 TONSILLECTOMY HX Childhood TRANSURETHRAL ELEC-SURG PROSTATECTOM 01/14/2023 XCAPSL CTRC RMVL INSJ IO LENS PROSTH W/O ECP Bilateral 08/25/2016 Family History FAMILY HISTORY Problem Relation Age of Onset Cancer Mother lung Cancer Father colon Cancer Brother lymphoma Patient Allergies ALLERGIES Allergen Reactions Contrast Dye Hives Finacea [Azelaic Ac* Rash Bactrim [Sulfametho* Unknown Bextra [Valdecoxib] Unknown Cardura [Doxazosin * Unknown Ciprofloxacin Unknown Cytotec [Misoprosto* Unknown Fosamax [Alendronat* Vomiting heartburn, vomiting Gabapentin Mental Status Change Ketoconazole Unknown Levofloxacin Other: See Comments Pseudomonas Mobic [Meloxicam] Unknown Nitrofurantoin Other: See Comments Per , "he didn't feel well" - unsure of reaction Nsaids (Non-Steroid* Unknown GI UPSET Relafen [Nabumetone] Unknown Terbinafine GI Upset Current Medications Current Outpatient Medications on File Prior to Visit Medication Sig baclofen suppository 10 mg (CPD) 1 Suppository by RECTAL route once daily. Unwrap and insert as directed. polyethylene glycol 3350 (MIRALAX) 17 gram/dose powder Take 17 g by mouth once daily. Dissolve dosein 4 - 8 ounces of liquid and take as directed. metroNIDAZOLE 0.75 % cream Apply to affected area once daily. traZODone (DESYREL) 100 mg tablet Take 1 tablet by mouth daily at bedtime. pantoprazole DR (PROTONIX) 40 mg tablet Take 1 tablet by mouth two times a day. (Patient taking differently: Take 40 mg by mouth once daily.) guaifenesin/pseudoephedrne HCl (MUCINEX D ORAL) Take 1 tablet by mouth two times a day. hydroCHLOROthiazide 12.5 mg tablet Take 1 tablet by mouth once daily. donepezil (ARICEPT) 5 mg tablet Take 2 tablets by mouth daily at bedtime. sertraline (ZOLOFT) 25 mg tablet Take 1 tablet by mouth once daily. docusate sodium (COLACE) 50 mg capsule Take 50 mg by mouth two times a day. (Patient not taking: Reported on 12/14/2024) TRULANCE 3 mg tablet Take 3 mg by mouth once daily. lisinopril (ZESTRIL) 5 mg tablet Take 1 tablet by mouth once daily. ipratropium bromide (ATROVENT) 42 mcg (0.06 %) nasal spray Use 2 Sprays in the nose three times a day. (Patient not taking: Reported on 12/14/2024) memantine (NAMENDA) 5 mg tablet Take 1 tablet daily for 1 week, then increase to 1 tablet twice daily for 1 week, then increase to 1 tablet in the AM and 2 tablets in the PM for 1 week. When you complete the 5mg tablet titration then transition to the 10mg tablets (separate Rx). (Patient not taking: Reported on 12/14/2024) Methenamine Hippurate (HIPREX) 1 gram tablet Take 1 tablet by mouth two times a day. furosemide (LASIX) 20 mg tablet Take 1 tablet by mouth once daily. ferrous sulfate 300 mg (60 mg iron)/5 mL syrup Take 5 mL by mouth once daily. (Patient not taking: Reported on 11/10/2024) Ascorbic Acid (VITAMIN C) 500 mg chew Take 1 tablet (500 mg) by mouth once daily. (Patient not taking: Reported on 11/10/2024) dupilumab 300 mg/2 mL subcutaneous syringe (DUPIXENT) Inject 2 mL subcutaneously every 4 weeks. PerDermelisa: Dr. Mariee (Patient taking differently: Inject 300 mg subcutaneously every 6 weeks. Per Jessi: Dr. Mariee) Lactobacillus acidophilus (PROBIOTIC ACIDOPHILUS ORAL) Take 1 capsule by mouth once daily. d-mannose powd Take 1/2 teaspoon by mouth once daily. triamcinolone acetonide (KENALOG) 0.1 % cream Apply 1 application to affected area as directed. doxycycline 20 mg tablet Take 20 mg by mouth twice daily. multivit-min/iron/folic acid/K (ADULTS MULTIVITAMIN ORAL) Take 1 tablet by mouth once daily. MEDICAL SUPPLY KA for right lower extremity. acetaminophen (TYLENOL) 500 mg tablet Take 2 tablets by mouth every 8 hours as needed for Pain or Fever. aspirin 81 mg chewable tablet Take 1 tablet by mouth once daily. No current facility-administered medications on file prior to visit. Social History Social History Tobacco Use Smoking status: Former Current packs/day: 0.00 Types: Cigarettes Quit date: 06/24/1963 Years since quittin.5 Smokeless tobacco: Never Tobacco comments: quit in his 20's - smoked socially while in college Vaping Use Vaping status: Never Used Substance Use Topics Alcohol use: Yes Comment: 1-2 drinks in A MONTH Drug use: No Review of Symptoms REVIEW OF SYSTEMS GENERAL: No weight loss, malaise or fevers HEENT: Negative for frequent or significant headaches, No changes in hearing or vision, no nose bleeds or other nasal problems NECK: Negative for lumps, goiter, pain and significant neck swelling RESPIRATORY: Negative for cough, hemoptysis, wheezing, COPD, dyspnea or shortness of breath CARDIOVASCULAR: Negative for chest pain, leg swelling, hypertension, CHF or palpitations GI: No nausea, vomiting, or diarrhea, No heartburn or reflux symptoms, and no blood : No history of dysuria, blood MUSCULOSKELETAL: Negative for joint pain or swelling, back pain or muscle pain SKIN: Negative for lesions, rash, and itching PSYCH: some increase irritability HEMATOLOGY/LYMPHOLOGY: Negative for prolonged bleeding, bruising easily or swollen nodes ENDOCRINE: Negative for heat intolerance, polyuria, polydipsia and goiter. Always cold NEURO: No history of headaches, syncope, paralysis, seizures or increased tremors EXAM: BP 118/80 Pulse 62 Resp 18 Wt 73 kg (161 lb) SpO2 100% BMI 22.45 kg/m Last 6 Encounter Wt Readings: Date: Wt: 12/31/2024 73 kg (161 lb) 12/14/2024 71.9 kg (158 lb 8 oz) 11/10/2024 71 kg (156 lb 8 oz) 10/18/2024 72.1 kg (159 lb) 10/16/2024 73.9 kg (163 lb) 10/10/2024 72.1 kg (159 lb) General Appearance: Well appearing, alert, in no acute distress, well-hydrated, well nourished.. Skin: Skin color, texture, turgor normal, no suspicious rashes or lesions. On areas visible. Head: Normocephalic, no masses, lesions, tenderness or abnormalities. Eyes: Anicteric sclera. Pupils are equally round and reactive to light. Extraocular movements are intact. . Ears: External ears, TM's normal, canals clear. Nose/Sinuses: Nares normal, septum midline, mucosa normal, no drainage or sinus tenderness. Oropharynx: Lips, mucosa, and tongue normal, teeth and gums normal, oropharynx normal. Neck: Supple, no adenopathy; thyroid symmetric, normal size, no bruits. Lungs: Lungs clear to auscultation. No wheezing, rhonchi, rales.. Heart: RRR without murmur, gallop, or rubs. No ectopy. Abdomen: Normal abdominal exam, Abdomen soft, non-tender. Bowel sounds normal. No masses, organomegaly. Extremities: No deformities, skin discoloration. Good capillary refill. Mild leg swelling Musculoskeletal: Spine range of motion normal. Muscular strength intact and weaker in the right lower extremity and chronic., No joint swelling, deformity, or tenderness. Peripheral Pulses: Normal. Neurologic: Gait normal. Sensation to light touch and crainal nerves 2-12 intact.. Health Maintenance List Advance Directive Discussion due on 09/26/2024 Covid-19 Vaccine( season) due on 01/04/2025 Diabetes Screening due on 12/13/2027 DTaP,Tdap,Td Vaccine(4 - Td or Tdap) due on 03/13/2028 Influenza Vaccine Completed RSV Vaccine Completed Shingrix Vaccine Completed Pneumococcal Vaccine: 50+ Completed Colorectal Cancer Screening Discontinued Data reviewed Latest Ref Rng 06/07/2024 12/12/2024 12/17/2024 WBC 3.70 - 11.00 k/uL 4.42 3.83 RBC 4.20 - 6.00 m/uL 3.77 (L) 3.91 (L) Hemoglobin 13.0 - 17.0 g/dL 11.2 (L) 12.5 (L) Hematocrit 39.0 - 51.0 % 35.7 (L) 38.7 (L) MCV 80.0 - 100.0 fL 94.7 99.0 MCH 26.0 - 34.0 pg 29.7 32.0 MCHC 30.5 - 36.0 g/dL 31.4 32.3 RDW-CV 11.5 - 15.0 % 13.0 13.9 Platelet Count 150 - 400 k/uL 191 188 MPV 9.0 - 12.7 fL 9.8 9.5 Neut% % 45.5 53.3 Abs Neut (ANC) 1.45 - 7.50 k/uL 2.01 2.04 Lymph% % 43.0 36.0 Abs Lymph 1.00 - 4.00 k/uL 1.90 1.38 [place]% % 9.5 9.1 Abs [place] <0.87 k/uL 0.42 0.35 Eosin% % 1.1 0.8 Abs Eosin <0.46 k/uL 0.05 0.03 Baso% % 0.9 0.5 Abs Baso <0.11 k/uL 0.04 <0.03 Immature Gran % % 0.0 0.3 IMMATURE GRANS (ABS) <0.10 k/uL <0.03 <0.03 NRBC /100 WBC 0.0 0.0 Absolute nRBC <0.01 k/uL <0.01 <0.01 DTYPE Auto Auto Color Yellow Yellow Clarity Clear Clear Glucose, Urine Negative Negative Bilirubin, Urine Negative Negative Ketones, Urine Negative Negative Specific [place], Ur 1.005 - 1.030 1.015 Hemoglobin/Blood,Ur Negative Negative pH, Urine <8.5 5.5 Protein, Urine Negative Negative Urobilinogen 0.2-1.0 EU/dL 0.2 EU/dL Nitrites Negative Negative Leukest Negative 3+ ! WBC, Urine 0-5 /HPF >20 /HPF ! RBC, Urine 0-2 /HPF 0-2 /HPF Bacteria uL Negative uL >9,821 (H) Epithelial Cells /HPF None Seen Hyaline Cast 0 /LPF 1-3 /LPF ! Protein, Total 6.3 - 8.0 g/dL 6.8 Albumin 3.9 - 4.9 g/dL 4.4 Calcium 8.5 - 10.2 mg/dL 9.7 9.6 Bilirubin, Total 0.2 - 1.3 mg/dL 0.6 Alkaline Phosphatase 38 - 113 U/L 69 AST 14 - 40 U/L 19 ALT 10 - 54 U/L 20 Glucose 74 - 99 mg/dL 101 (H) 87 BUN 9 - 24 mg/dL 23 24 Creatinine 0.73 - 1.22 mg/dL 0.99 0.95 Sodium 136 - 144 mmol/L 138 139 Potassium 3.7 - 5.1 mmol/L 4.4 4.4 Chloride 98 - 107 mmol/L 101 102 CO2 22 - 30 mmol/L 26 27 Anion Gap 8 - 15 mmol/L 11 10 eGFR >=60 mL/min/1.73m 77 80 Total Cholesterol, Nonfasting <200 mg/dL 134 174 Triglycerides, Nonfasting <150 mg/dL 45 78 HDL Cholesterol, Nonfasting >39 mg/dL 76 86 LDL Cholesterol, Nonfasting <100 mg/dL 49 72 Non HDL Cholesterol, Nonfasting <130 mg/dL 58 88 VLDL Cholesterol, Nonfasting <30 mg/dL 9 16 Total Chol/HDL Ratio, Nonfasting <5.10 mg/dL 1.76 2.02 LDL/HDL Ratio, Nonfasting <2.54 mg/dL 0.64 0.84 Hemoglobin A1C 4.3 - 5.6 % 5.5 5.2 Estimated Average Glucose mg/dL 111 103 Vitamin B12 232 - 1,245 pg/mL 700 TSH 0.270 - 4.200 mIU/L 1.670 Magnesium 1.7 - 2.3 mg/dL 2.1 Culture >=100,000 CFU/ml Escherichia coli ! A/P ASSESSMENT/PLAN: 1. Medicare annual wellness visit, subsequent - ICD9: V70.0, ICD10: Z00.00 (primary diagnosis) - Counseled on healthy diet and regular exercise - Patient counseled on and acknowledged vaccine benefits/risks/side effects; VIS provided: COVID-19 - Follow up for annual exam in one year 2. Essential hypertension, benign - ICD9: 401.1, ICD10: I10 - Controlled - Continue current medications - Recommend home blood pressure monitoring, to bring results to next visit - Encouraged sodium restriction, DASH or Mediterranean diet - Recommend regular aerobic exercise 3. Elevated blood sugar - ICD9: 790.29, ICD10: R73.9 - controlled with the life style changes. 4. Bilateral carotid artery stenosis - ICD9: 433.10, 433.30, ICD10: I65.23 - stable. No changes needed. 5. Episodic cluster headache, not intractable - ICD9: 339.01, ICD10: G44.019 - stable no changes needed. No significant BACH's 6. Gastroesophageal reflux disease, unspecified whether esophagitis present - ICD9: 530.81, ICD10: K21.9 - Continue treatment with protonix 40 mg BID 7. Iron deficiency anemia, unspecified iron deficiency anemia type - ICD9: 280.9, ICD10: D50.9 - seeing hematology. S/p iron infusion. 8. Peripheral edema - ICD9: 782.3, ICD10: R60.0 - mild. Cont HCTZ. 9. Situational anxiety - ICD9: 300.09, ICD10: F41.8 - will increase the zoloft to 37.5 mg a day 10. Situational depression - ICD9: 309.0, ICD10: F43.21 - as per #9 11. Thyroid nodule - ICD9: 241.0, ICD10: E04.1 - check US. 12. Abnormal SPEP - ICD9: 790.99, ICD10: R77.8 - follows with hematology for management 13. Dementia without behavioral disturbance (HCC) - ICD9: 294.20, ICD10: F03.90 - on meds managed per neuro 14. Essential tremor - ICD9: 333.1, ICD10: G25.0 - stable no changes. 15. Ilioinguinal neuralgia of left side - ICD9: 355.8, ICD10: G57.92 - stable no changed. 16. Neuropathy - (NOS) - ICD9: 355.9, ICD10: G62.9 - stable no changes. 17. Chronic constipation - ICD9: 564.00, ICD10: K59.09 - improved with Tx per colo/rectal 18. Advance directive discussed with patient - ICD9: V65.49, ICD10: Z71.89 - needs to bring in copies. 19. Need for vaccination - ICD9: V05.9, ICD10: Z23 - PFIZER-BIONTECH COVID-19 VACCINE AGE 12+ YR (COMIRNATY): given Requested Prescriptions Signed Prescriptions Disp Refills memantine (NAMENDA) 10 mg tablet Sig: Per Neuro. Dr. Yu sertraline (ZOLOFT) 25 mg tablet 135 tablet 1 Sig: Take 1.5 tablets by mouth once daily. F/u 6 months routine check lipid, A1c, BMP and CBC prior I spent a total of 50 minutes on the date of the service which included preparing to see the patient, [id number] patient care, completing clinical documentation, performing a medically appropriate examination, counseling and educating the patient/family/caregiver and ordering medications, tests, or procedures. Francisco Bahena MD documented in this [facility] History of Present illness Narrative* Essence López Tech - 12/27/2024 2:30 PM EDT Radiology Service Progress Note PATIENT NAME: Javier Bond DATE OF SERVICE: December 27, 2024 TIME: 2:15 PM PATIENT IDENTITY VERIFICATION COMPLETED USING TWO (2) IDENTIFIERS: Name and Date of confirmedby patient verbally. FALL SCREENING: Has the patient had 2 falls in the last year or 1 fall with injury or currently using an Ambulatory Assistive Device (Walker, Cane, Wheelchair, Crutches, etc.)? No PATIENT GENDER DATA: Assigned male at PATIENT RELEVANT IMPLANT DATA REVIEWED: Not Applicable PATIENT PRESENTS WITH AN IMPLANTABLE OR ATTACHED BLOW PIT OPERATOR: No RADIOLOGY DEPARTMENT: General X-ray: Exam(s) Completed: Abdomen X-Ray: Abdomen with Obliques PERIPHERAL IV DATA: Not applicable SIGNED BY: Kaur Negrete December 27, 2024 2:15 PM documented in this encounterCh[facility]04-[facility] History of Present illness Narrative* Gracy Fontaine RDMS - 12/27/2024 1:45 PM EDT Radiology Service Progress Note PATIENT NAME: Javier Bond DATE OF SERVICE: December 27, 2024 TIME: 2:20 PM PATIENT IDENTITY VERIFICATION COMPLETED USING TWO (2) IDENTIFIERS: Name and Date of confirmedby patient verbally. FALL SCREENING: Has the patient had 2 falls in the last year or 1 fall with injury or currently using an Ambulatory Assistive Device (Walker, Cane, Wheelchair, Crutches, etc.)? Yes, Patient High Riskfor Falls What interventions were put in place to prevent falls during this visit? Instructed Patient to Callfor Help if Needed, Offered Assistance with Transfers/Clothing, Instructed Patient to Remain Seated(Not on Exam Table) Until Exam, Increased Observations by Caregivers, and Escorted to/from Restroom PATIENT GENDER DATA: Assigned male at PATIENT RELEVANT IMPLANT DATA REVIEWED: Not Applicable PATIENT PRESENTS WITH AN IMPLANTABLE OR ATTACHED BLOW PIT OPERATOR: No RADIOLOGY DEPARTMENT: Ultrasound PERIPHERAL IV DATA: Not applicable SIGNED BY: Gracy Fontaine RDMS December 27, 2024 2:20 PM documented in this encounterCh[facility]04-03-2025 [facility] Telephone encounter Note* Telephone Encounter - Ronan Jean LPN - 12/22/2024 11:35 AM EDT Pt notified of Dr Maxwell's message. was not at home. Pt verbalizes understanding. Copy of Dr Bahena's message has been sent to pt via so he can review with his . Ronan Jean LPN [facility]03-[facility] Miscellaneous Notes* Telephone Encounter - Ronan Jean LPN - 12/22/2024 11:35 AM EDT Pt notified of Dr Maxwell's message. was not at home. Pt verbalizes understanding. Copy of Dr Bahena's message has been sent to pt via so he can review with his . Ronan Jean LPN * Telephone Encounter - Francisco Bahena MD - 12/21/2024 4:13 PM EDT Let know that looking back at is urine tests sine 2020 he always has blood and white blood cells present. If he has chronic kidney stones he can be be chronically colonized with bacteria so after being treated the bacteria just re- grow. I would advise not to treat unless there is a sudden change in his behavior out of norm for him, he gets a fever or any presence of increase urine frequency,urgency, incontinence out of norm or blood in the urine. * Telephone Encounter - Clari Scott LPN - 12/21/2024 2:17 PM EDT Patient notified of results, verbalizes understanding of instructions. She stated that Pt has a Hx of kidney infections with no other Sx. Pt also has a kidney doctor. Clari Scott LPN * Telephone Encounter - Suzette Garcia MA - 12/20/2024 4:04 PM EDT Line busy. Try again later. Suzette Garcia MA * Telephone Encounter - Francisco Bahena MD - 12/19/2024 8:30 AM EDT Let (Peter) know that his urine culture did grow bacteria. Hs he had any recent increased urine frequency, urgency, accidents, dysuria and sudden changes in his memory. If not I would prefer notto treat. documented in this encounterCh[facility]03-28-2025 Telephone encounter Note * Telephone Encounter - Francisco Bhaena MD - 12/21/2024 4:13 PM EDT Let know that looking back at is urine tests sine 2020 he always has blood and white blood cells present. If he has chronic kidney stones he can be be chronically colonized with bacteria so after being treated the bacteria just re- grow. I would advise not to treat unless there is a sudden change in his behavior out of norm for him, he gets a fever or any presence of increase urine frequency,urgency, incontinence out of norm or blood in the urine. [facility]03-28-2025 Telephone encounter Note* Telephone Encounter - Clari Scott LPN - 12/21/2024 2:17 PM EDT Patient notified of results, verbalizes understanding of instructions. She stated that Pt has a Hx of kidney infections with no other Sx. Pt also has a kidney doctor. Clari Scott LPN [facility]03-27-2025 Telephone encounter Note* Telephone Encounter - Suzette Garcia MA - 12/20/2024 4:04 PM EDT Line busy. Try again later. Suzette aGrcia MA [facility]03-26-2025 Note* Addendum Note - Daniela Noel APRN.CNP - 12/19/2024 3:57 PM EDTAddended by: DANIELA NOEL on: 12/19/2024 03:57 PM Modules accepted: Orders [facility]03-26-2025 Miscellaneous Notes* Addendum Note - Daniela Noel APRN.CNP - 12/19/2024 3:57 PM EDTAddended by: DANIELA NOEL on: 12/19/2024 03:57 PM Modules accepted: Orders documented in [facility]Ch[facility] Instructions* Patient Instructions* Daniela Noel APRN.CNP - 12/19/2024 3:38 PM EDT Images from the original note were not included. Obstructive defecation: 1. Stay hydrated by drinking at least 8 glasses of water per day. This will help to keep your bowelhabits more regular. 2. Continue taking your bowel regimen as prescribed. 3. You may take a daily stool softener (Miralax). Keeping your stools soft will improve your ability to evacuate more regularly. Start with 17g (1 capful) daily and adjust every 2-3 days as need to achieve formed, soft stool. If [id number]-avskrdt stool softeners do not work, then seek consultation with your primary care physician or a layout artist to discuss prescription stool softeners or motility medications Baclofen suppository at bedtime. 4. Squatty potty/foot stool to aid with defecation: (available online, [employer], [employer], [employer], etc. ) 5. Pelvic floor physical therapy. The goal of this therapy is to retrain the pelvic floor muscles to more appropriately relax and therefore improve evacuation of stool. Physical therapy is the most effective way to get the pelvic floor muscles moving and coordinating correctly. Pelvic floor PT was o rdered today, reviewed scheduling process with patient and how to find local therapists. 6. There are no surgical options to improve pelvic muscle coordination. 7. Obstructive defecation/pelvic floor dysfunction handout reviewed and provided to patient. 8. Patient was instructed to follow up virtual visit in 3 months after completion of physical therapy and adherence to suggested bowel regimen. 9. Follow up with your referring provider, Dr. Bahena. A copy of your test results will be sent to this provider. [facility] History and physical note * Daniela Noel APRN.CNP - 12/19/2024 3:30 PM EDT Images from the original note were not included. PELVIC FLOOR COLON & RECTAL SURGERY Reason for visit: Review anorectal manometry and EMG results Consultation requested by Dr. Bahena for an opinion regarding Javier Bond pelvic floor dysfunction. My final recommendations will be communicated back to the requesting physician by way of shared Medical record or letter to requesting physician via US mail. History of Present Illness: Javier Bond is a 84 year old MALE who was seen at the request of Dr. Bahena for anorectal manometry testing, rectal sensation testing and EMG recruitment. Mr. Bond was referred for testing dueto symptoms of constipation and inability to defecate without manual disimpaction . Duration of symptoms: several months Do you have anorectal pain: Yes: tender Stool frequency: multiple a day 4-5 Stool type: Type 1: Separate hard lumps, like nuts (hard to pass) Type 2: Sausage-shaped but lumpy Stool straining: excessive straining Frequency of straining: always Does anything make your symptoms better? Manual disimpaction Miralax- discontinued Trulance-discontinued Urinary Symptoms: Urinary incontinence: none Urinary frequency: No Previous Testing Results include: Colonoscopy: Yes Date:10/27/2023 - random biopsies: Yes - polyps: No Manometry: today Defecography: No PAST MEDICAL HISTORY Diagnosis Date Abnormal SPEP 12/14/2022 Advance directive discussed with patient 10/04/2022 Discussed 09/2022 Anemia, chronic disease 08/25/2023 Hg runs 10-12.7 Arthritis Benign intracranial hypertension 11/30/2002 Bilateral carotid artery stenosis 12/03/2020 US 08/2020: Rt 20-40%, Lt 0-20% 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 Cervical spondylosis without myelopathy 06/27/2023 Chronic constipation 12/03/2020 Chronic LLQ pain 02/23/2024 A constant dull ache: w/u was neg Compression fracture of third lumbar vertebra (HCC) 11/05/2019 Degenerative lumbar spinal stenosis 12/15/2020 Dementia without behavioral disturbance (HCC) 12/23/2023 Dementia without behavioral disturbance (HCC) 12/23/202310/2023: w/u ok, patient initially declined med management but changed his mind and stated Aricpet mid 11/2023. 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/24/2022 S/p removal 08/2022 Essential hypertension, benign Essential tremor 11/21/2023 Family history of malignant neoplasm of gastrointestinal tract GERD (gastroesophageal reflux disease) 03/25/2009 Hiatal hernia 06/09/2022 History of compression fracture of spine 11/05/2019 Hypercalciuria, idiopathic 02/11/2020 Hypertrophy of prostate without urinary obstruction and other lower urinary tract symptoms (LUTS) Ilioinguinal neuralgia of left side 09/27/2019 Internal hemorrhoids without mention of complication Iron deficiency anemia 07/23/[address] 10/04/2022 DPA: Peter Lumbar degenerative disc disease 09/14/2012 Lumbar radiculopathy 07/03/2020 Medicare annual wellness visit, subsequent 09/10/2021 Medicare Part B: Not able to find Last done: 09/10/2021 Memory deficits 11/21/202310/2023: w/u ok, patient declined med management Nephrolithiasis 07/04/2007 Neuropathy - (NOS) 08/30/2024 NCS: 08/2024 Oropharyngeal dysphagia 12/25/2020 Osteoporosis 01/28/2020 Other specified anemias 03/16/2022 Acute blood loss 11/2020 (post surgery) Pain in both hands 06/21/2024 Rheum factor+(05/2024) Peripheral edema 05/21/2022 Primary osteoarthritis of both first carpometacarpal joints 05/04/2018 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 09/09/2015 Rosacea 09/09/2015 S/P lumbar spinal fusion 12/15/2020 Sepsis due to Gram-negative organism with septic shock (HCC) 12/17/2020 Proteus mirabilis UTI Situational anxiety 06/27/2019 Situational depression 02/27/2021 Spondylosis of lumbar region without myelopathy or radiculopathy 03/10/2018 Thyroid nodule 12/03/[address] Zacarias Unstable gait 05/21/2021 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 05/11/2021 PAST SURGICAL HISTORY Procedure Laterality Date ARTHRP INTERCARPAL/CARP/MTCRPL JT INTERPOSITION Left 05/24/2018 Left thumb CMC arthroplasty with LRTI and MCP pinning of left thumb COLONOSCOPY FLX DX W/COLLJ SPEC WHEN PFRMD 07/17/08, 2012 COLONOSCOPY FLX DX W/COLLJ SPEC WHEN PFRMD 03/28/2019 [facility] CYSTO.PANENDO 02/20/2021 stent removal EGD TRANSORAL BIOPSY SINGLE/MULTIPLE 12/26/2008 ESOPHAGOGASTRODUODENOSCOPY TRANSORAL DIAGNOSTIC 03/18/2020 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 PERIPHERAL NERVE BLOCK (MOD 59) Bilateral 11/01/2016, 03/28/2018 bilateral lumbar facet medial branch nerve block (l4-5, L5-S1) REMOVAL OF HEMORRHOID CLOT 06/2017 SKIN BIOPSY HX SPINAL FUSION,ANT,EA ADNL LEVEL 2001 TONSILLECTOMY HX Childhood TRANSURETHRAL ELEC-SURG PROSTATECTOM 01/14/2023 XCAPSL CTRC RMVL INSJ IO LENS PROSTH W/O ECP Bilateral 08/25/2016 Current Outpatient Medications Medication Sig Dispense Refill polyethylene glycol 3350 (MIRALAX) 17 gram/dose powder Take 17 g by mouth once daily. Dissolve dosein 4 - 8 ounces of liquid and take as directed. metroNIDAZOLE 0.75 % cream Apply to affected area once daily. traZODone (DESYREL) 100 mg tablet Take 1 tablet by mouth daily at bedtime. [address] (PROTONIX) 40 mg tablet Take 1 tablet by mouth two times a day. (Patient taking differently: Take 40 mg by mouth once daily.) 90 tablet 1 guaifenesin/pseudoephedrne HCl (MUCINEX D ORAL) Take 1 tablet by mouth two times a day. hydroCHLOROthiazide 12.5 mg tablet Take 1 tablet by mouth once daily. 90 tablet 1 donepezil (ARICEPT) 5 mg tablet Take 2 tablets by mouth daily at bedtime. 180 tablet 1 sertraline (ZOLOFT) 25 mg tablet Take 1 tablet by mouth once daily. 90 tablet 1 docusate sodium (COLACE) 50 mg capsule Take 50 mg by mouth two times a day. (Patient not taking: Reported on 12/14/2024) TRULANCE 3 mg tablet Take 3 mg by mouth once daily. lisinopril (ZESTRIL) 5 mg tablet Take 1 tablet by mouth once daily. 90 tablet 1 ipratropium bromide (ATROVENT) 42 mcg (0.06 %) nasal spray Use 2 Sprays in the nose three times a day. (Patient not taking: Reported on 12/14/2024) memantine (NAMENDA) 5 mg tablet Take 1 tablet daily for 1 week, then increase to 1 tablet twice daily for 1 week, then increase to 1 tablet in the AM and 2 tablets in the PM for 1 week. When you complete the 5mg tablet titration then transition to the 10mg tablets (separate Rx). (Patient not taking: Reported on 12/14/2024) 42 tablet 0 memantine (NAMENDA) 10 mg tablet Take 1 tab twice daily (after completing the 5mg titration Rx). 180 tablet 1 Methenamine Hippurate (HIPREX) 1 gram tablet Take 1 tablet by mouth two times a day. 180 tablet 3 furosemide (LASIX) 20 mg tablet Take 1 tablet by mouth once daily. 90 tablet 1 ferrous sulfate 300 mg (60 mg iron)/5 mL syrup Take 5 mL by mouth once daily. (Patient not taking: Reported on 11/10/2024) 150 mL 5 Ascorbic Acid (VITAMIN C) 500 mg chew Take 1 tablet (500 mg) by mouth once daily. (Patient not taking: Reported on 11/10/2024) 90 tablet 1 dupilumab 300 mg/2 mL subcutaneous syringe (DUPIXENT) Inject 2 mL subcutaneously every 4 weeks. PerDerm: Dr. Mariee (Patient taking differently: Inject 300 mg subcutaneously every 6 weeks. Per Derm: Dr. Mariee) Lactobacillus acidophilus (PROBIOTIC ACIDOPHILUS ORAL) Take 1 capsule by mouth once daily. d-mannose powd Take 1/2 teaspoon by mouth once daily. triamcinolone acetonide (KENALOG) 0.1 % cream Apply 1 application to affected area as directed. doxycycline 20 mg tablet Take 20 mg by mouth twice daily. multivit-min/iron/folic acid/K (ADULTS MULTIVITAMIN ORAL) Take 1 tablet by mouth once daily. MEDICAL SUPPLY KAFO for right lower extremity. 1 Device 1 acetaminophen (TYLENOL) 500 mg tablet Take 2 tablets by mouth every 8 hours as needed for Pain or Fever. aspirin 81 mg chewable tablet Take 1 tablet by mouth once daily. No current facility-administered medications for this visit. ALLERGIES Allergen Reactions Contrast Dye Hives Finacea [Azelaic Ac* Rash Bactrim [Sulfametho* Unknown Bextra [Valdecoxib] Unknown Cardura [Doxazosin * Unknown Ciprofloxacin Unknown Cytotec [Misoprosto* Unknown Fosamax [Alendronat* Vomiting heartburn, vomiting Gabapentin Mental Status Change Ketoconazole Unknown Levofloxacin Other: See Comments Pseudomonas Mobic [Meloxicam] Unknown Nitrofurantoin Other: See Comments Per , "he didn't feel well" - unsure of reaction Nsaids (Non-Steroid* Unknown GI UPSET Relafen [Nabumetone] Unknown Terbinafine GI Upset FAMILY HISTORY Problem Relation Age of Onset Cancer Mother lung Cancer Father colon Cancer Brother lymphoma Social History Tobacco Use Smoking status: Former Current packs/day: 0.00 Types: Cigarettes Quit date: 06/24/1963 Years since quittin.5 Smokeless tobacco: Never Tobacco comments: quit in his 20's - smoked socially while in college Vaping Use Vaping status: Never Used Substance Use Topics Alcohol use: Yes Comment: 1-2 drinks in A MONTH Drug use: No Spirits Model present: raúl zapata Physical Exam: There were no vitals filed for this visit. General Appearance: Well appearing, alert, in no acute distress, well-hydrated, well nourished. Participation of a fellow, resident, medical student, or advanced practice provider student in performing the sensitive examination was discussed with the patient or authorized telemarketing representative. The patient or authorized telemarketing representative has agreed to proceed with the sensitive examination. Anorectal: Perianal skin is intact. No erythema, induration or excoriation. No fissure, fistula or external hemorrhoids. Digital Rectal Exam: Anus: closed Resting tone: HIGH Squeeze tone: HIGH Valsalva: pelvic floor relaxation is Abnormal. Paradox contraction Puborectalis: non tender to palpation on valsalva Rectocele: Absent Full thickness rectal prolapse: No Assessment Anorectal Physiology tests reviewed at today's visit: Below is a preliminary interpretation of results by this consulting provider, which may change after the final interpretation/result is finalized. The sensitive examination was discussed with the Patient or Patient's Authorized Agricultural Science Professor. Asapplicable, any other physician, advance practice provider, medical student, or other health professional student that will be observing or involved in the sensitive examination for educational or training purposes was discussed with the Patient or Authorized Agricultural Science Professor. The Patient or Authorized Agricultural Science Professor has agreed to proceed with the sensitive examination. (Sensitive examination includes inspection and/or palpation of the breasts, pelvis, prostate and anorectal regions) Reason for testing: constipation and straining to defecate Ileoanal pouch: No Anorectal Manometry Testing: Strength: Anorectal manometry was performed. Average Pressure Interpretation Rest: 44 mmHg This is within normal range. Normal range is 35-50 mmHg. Squeeze: 133 mmHg This is well above normal range. Normal range is 75 - 100 mmHg. There is appropriate incremental change between resting and squeeze pressures which can indicate good pelvic floor movement with squeeze. Sensory: Sensation Volume First sensation : 12 mL / Normal Range: 40-80 mL First urge to defecate: 46 mL / Normal Range: 80-120 mL Maximum tolerable volume: 60 mL / Normal Range: 120-180 mL Recto-anal inhibitory reflex: yes Balloon expulsion: no This exhibit hyperacute rectal sensation with at least 2/3 sensory tests. A recto-anal inhibitory reflex (RAIR) was present. This is a normal reflex. EMG Recruitment: EMG recruitment was performed. The patient shows a normal increase in activity with squeeze, and a paradoxic increase in activity with valsalva. This indicates abnormal pelvic floor movement, which can be indicative of poor pelvic floor coordination secondary to pelvic floor non-relaxation / dyssynergia. Assessment and Plan: Javier Bond is a 84 year old MALE who was referred for anorectal physiology testing due to symptoms of constipation and inability to defecate without manual disimpaction . The testing that was performed today includes anorectal manometry, rectal sensory testing, balloon expulsion and EMG recruitment. These test results were reviewed with Javier G Bond and are listed above. Overall, these tests show abnormal anal sphincter strength, hyperacute rectal sensation, and abnormal pelvic floor movement. After review of the patient's history, physical exam findings, anorectal manometry and EMGresults, the patient may have obstructive defecation due to non-relaxation of the puborectalis/pelvic floor dyssynergia which could contribute to their symptoms. Recommendations for this include: - Obstructive defecation: 1. Stay hydrated by drinking at least 8 glasses of water per day. This will help to keep your bowelhabits more regular. 2. Continue taking your bowel regimen as prescribed. 3. You may take a daily stool softener (Miralax). Keeping your stools soft will improve your ability to evacuate more regularly. Start with 17g (1 capful) daily and adjust every 2-3 days as need to achieve formed, soft stool. If lfcj-fym-izfihcz stool softeners do not work, then seek consultation with your primary care physician or a layout artist to discuss prescription stool softeners or motility medications Baclofen suppository at bedtime. 4. Squatty potty/foot stool to aid with defecation: (available online, [employer], [employer], [employer], etc. ) 5. Pelvic floor physical therapy. The goal of this therapy is to retrain the pelvic floor muscles to more appropriately relax and therefore improve evacuation of stool. Physical therapy is the most effective way to get the pelvic floor muscles moving and coordinating correctly. Pelvic floor PT was o rdered today, reviewed scheduling process with patient and how to find local therapists. 6. There are no surgical options to improve pelvic muscle coordination. 7. Obstructive defecation/pelvic floor dysfunction handout reviewed and provided to patient. 8. Patient was instructed to follow up virtual visit in 3 months after completion of physical therapy and adherence to suggested bowel regimen. 9. Follow up with your referring provider, Dr. Bahena. A copy of your test results will be sent to this provider. Daniela Noel APRN.TIME SIGNAL WIRER Pelvic Floor Colorectal Surgery I spent a total of 60 minutes on the date of the service which included preparing to see the patient, [id number] patient care, completing clinical documentation, obtaining and/or reviewing separately obtained history, performing a medically appropriate examination, counseling and educating the pat ient/family/caregiver, ordering medications, tests, or procedures, and communicating results to thepatient/family/caregiver. [facility]03-26-2025 History and physical note* Daniela Noel APRN.CNP - 12/19/2024 3:30 PM EDT Images from the original note were not included. PELVIC FLOOR COLON & RECTAL SURGERY Reason for visit: Review anorectal manometry and EMG results Consultation requested by Dr. Bahena for an opinion regarding Javier Bond pelvic floor dysfunction. My final recommendations will be communicated back to the requesting physician by way of shared Medical record or letter to requesting physician via [place] mail. History of Present Illness: Javier Bond is a 84 year old MALE who was seen at the request of Dr. Bahena for anorectal manometry testing, rectal sensation testing and EMG recruitment. Mr. Bond was referred for testing dueto symptoms of constipation and inability to defecate without manual disimpaction . Duration of symptoms: several months Do you have anorectal pain: Yes: tender Stool frequency: multiple a day 4-5 Stool type: Type 1: Separate hard lumps, like nuts (hard to pass) Type 2: Sausage-shaped but lumpy Stool straining: excessive straining Frequency of straining: always Does anything make your symptoms better? Manual disimpaction Miralax- discontinued Trulance-discontinued Urinary Symptoms: Urinary incontinence: none Urinary frequency: No Previous Testing Results include: Colonoscopy: Yes Date:10/27/2023 - random biopsies: Yes - polyps: No Manometry: today Defecography: No PAST MEDICAL HISTORY Diagnosis Date Abnormal SPEP 12/14/2022 Advance directive discussed with patient 10/04/2022 Discussed 09/2022 Anemia, chronic disease 08/25/2023 Hg runs 10-12.7 Arthritis Benign intracranial hypertension 11/30/2002 Bilateral carotid artery stenosis 12/03/2020 US 08/2020: Rt 20-40%, Lt 0-20% 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 Cervical spondylosis without myelopathy 06/27/2023 Chronic constipation 12/03/2020 Chronic LLQ pain 02/23/2024 A constant dull ache: w/u was neg Compression fracture of third lumbar vertebra (HCC) 11/05/2019 Degenerative lumbar spinal stenosis 12/15/2020 Dementia without behavioral disturbance (HCC) 12/23/2023 Dementia without behavioral disturbance (HCC) 12/23/202310/2023: w/u ok, patient initially declined med management but changed his mind and stated Aricpet mid 11/2023. 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/24/2022 S/p removal 08/2022 Essential hypertension, benign Essential tremor 11/21/2023 Family history of malignant neoplasm of gastrointestinal tract GERD (gastroesophageal reflux disease) 03/25/2009 Hiatal hernia 06/09/2022 History of compression fracture of spine 11/05/2019 Hypercalciuria, idiopathic 02/11/2020 Hypertrophy of prostate without urinary obstruction and other lower urinary tract symptoms (LUTS) Ilioinguinal neuralgia of left side 09/27/2019 Internal hemorrhoids without mention of complication Iron deficiency anemia 07/23/[address] 10/04/2022 DPA: Peter Lumbar degenerative disc disease 09/14/2012 Lumbar radiculopathy 07/03/2020 Medicare annual wellness visit, subsequent 09/10/2021 Medicare Part B: Not able to find Last done: 09/10/2021 Memory deficits 11/21/202310/2023: w/u ok, patient declined med management Nephrolithiasis 07/04/2007 Neuropathy - (NOS) 08/30/2024 NCS: 08/2024 Oropharyngeal dysphagia 12/25/2020 Osteoporosis 01/28/2020 Other specified anemias 03/16/2022 Acute blood loss 11/2020 (post surgery) Pain in both hands 06/21/2024 Rheum factor+(05/2024) Peripheral edema 05/21/2022 Primary osteoarthritis of both first carpometacarpal joints 05/04/2018 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 09/09/2015 Rosacea 09/09/2015 S/P lumbar spinal fusion 12/15/2020 Sepsis due to Gram-negative organism with septic shock (HCC) 12/17/2020 Proteus mirabilis UTI Situational anxiety 06/27/2019 Situational depression 02/27/2021 Spondylosis of lumbar region without myelopathy or radiculopathy 03/10/2018 Thyroid nodule 12/03/[address] Zacarias Unstable gait 05/21/2021 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 05/11/2021 PAST SURGICAL HISTORY Procedure Laterality Date ARTHRP INTERCARPAL/CARP/MTCRPL JT INTERPOSITION Left 05/24/2018 Left thumb CMC arthroplasty with LRTI and MCP pinning of left thumb COLONOSCOPY FLX DX W/COLLJ SPEC WHEN PFRMD 07/17/08, 2013 COLONOSCOPY FLX DX W/COLLJ SPEC WHEN PFRMD 03/28/2019 [facility] CYSTO.PANENDO 02/20/2021 stent removal EGD TRANSORAL BIOPSY SINGLE/MULTIPLE 12/26/2008 ESOPHAGOGASTRODUODENOSCOPY TRANSORAL DIAGNOSTIC 03/18/2020 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 PERIPHERAL NERVE BLOCK (MOD 59) Bilateral 11/01/2016, 03/28/2018 bilateral lumbar facet medial branch nerve block (l4-5, L5-S1) REMOVAL OF HEMORRHOID CLOT 06/2017 SKIN BIOPSY HX SPINAL FUSION,ANT,EA ADNL LEVEL 2001 TONSILLECTOMY HX Childhood TRANSURETHRAL ELEC-SURG PROSTATECTOM 01/14/2023 XCAPSL CTRC RMVL INSJ IO LENS PROSTH W/O ECP Bilateral 08/25/2016 Current Outpatient Medications Medication Sig Dispense Refill polyethylene glycol 3350 (MIRALAX) 17 gram/dose powder Take 17 g by mouth once daily. Dissolve dosein 4 - 8 ounces of liquid and take as directed. metroNIDAZOLE 0.75 % cream Apply to affected area once daily. traZODone (DESYREL) 100 mg tablet Take 1 tablet by mouth daily at bedtime. [address] (PROTONIX) 40 mg tablet Take 1 tablet by mouth two times a day. (Patient taking differently: Take 40 mg by mouth once daily.) 90 tablet 1 guaifenesin/pseudoephedrne HCl (MUCINEX D ORAL) Take 1 tablet by mouth two times a day. hydroCHLOROthiazide 12.5 mg tablet Take 1 tablet by mouth once daily. 90 tablet 1 donepezil (ARICEPT) 5 mg tablet Take 2 tablets by mouth daily at bedtime. 180 tablet 1 sertraline (ZOLOFT) 25 mg tablet Take 1 tablet by mouth once daily. 90 tablet 1 docusate sodium (COLACE) 50 mg capsule Take 50 mg by mouth two times a day. (Patient not taking: Reported on 12/14/2024) TRULANCE 3 mg tablet Take 3 mg by mouth once daily. lisinopril (ZESTRIL) 5 mg tablet Take 1 tablet by mouth once daily. 90 tablet 1 ipratropium bromide (ATROVENT) 42 mcg (0.06 %) nasal spray Use 2 Sprays in the nose three times a day. (Patient not taking: Reported on 12/14/2024) memantine (NAMENDA) 5 mg tablet Take 1 tablet daily for 1 week, then increase to 1 tablet twice daily for 1 week, then increase to 1 tablet in the AM and 2 tablets in the PM for 1 week. When you complete the 5mg tablet titration then transition to the 10mg tablets (separate Rx). (Patient not taking: Reported on 12/14/2024) 42 tablet 0 memantine (NAMENDA) 10 mg tablet Take 1 tab twice daily (after completing the 5mg titration Rx). 180 tablet 1 Methenamine Hippurate (HIPREX) 1 gram tablet Take 1 tablet by mouth two times a day. 180 tablet 3 furosemide (LASIX) 20 mg tablet Take 1 tablet by mouth once daily. 90 tablet 1 ferrous sulfate 300 mg (60 mg iron)/5 mL syrup Take 5 mL by mouth once daily. (Patient not taking: Reported on 11/10/2024) 150 mL 5 Ascorbic Acid (VITAMIN C) 500 mg chew Take 1 tablet (500 mg) by mouth once daily. (Patient not taking: Reported on 11/10/2024) 90 tablet 1 dupilumab 300 mg/2 mL subcutaneous syringe ([employer]) Inject 2 mL subcutaneously every 4 weeks. Mariana: Dr. Mariee (Patient taking differently: Inject 300 mg subcutaneously every 6 weeks. Per Derm: Dr. Mariee) Lactobacillus acidophilus (PROBIOTIC ACIDOPHILUS ORAL) Take 1 capsule by mouth once daily. d-mannose powd Take 1/2 teaspoon by mouth once daily. triamcinolone acetonide (KENALOG) 0.1 % cream Apply 1 application to affected area as directed. doxycycline 20 mg tablet Take 20 mg by mouth twice daily. multivit-min/iron/folic acid/K (ADULTS MULTIVITAMIN ORAL) Take 1 tablet by mouth once daily. MEDICAL SUPPLY KAFO for right lower extremity. 1 Device 1 acetaminophen (TYLENOL) 500 mg tablet Take 2 tablets by mouth every 8 hours as needed for Pain or Fever. aspirin 81 mg chewable tablet Take 1 tablet by mouth once daily. No current facility-administered medications for this visit. ALLERGIES Allergen Reactions Contrast Dye Hives Finacea [Azelaic Ac* Rash Bactrim [Sulfametho* Unknown Bextra [Valdecoxib] Unknown Cardura [Doxazosin * Unknown Ciprofloxacin Unknown Cytotec [Misoprosto* Unknown Fosamax [Alendronat* Vomiting heartburn, vomiting Gabapentin Mental Status Change Ketoconazole Unknown Levofloxacin Other: See Comments Pseudomonas Mobic [Meloxicam] Unknown Nitrofurantoin Other: See Comments Per , "he didn't feel well" - unsure of reaction Nsaids (Non-Steroid* Unknown GI UPSET Relafen [Nabumetone] Unknown Terbinafine GI Upset FAMILY HISTORY Problem Relation Age of Onset Cancer Mother lung Cancer Father colon Cancer Brother lymphoma Social History Tobacco Use Smoking status: Former Current packs/day: 0.00 Types: Cigarettes Quit date: 06/24/1963 Years since quittin.5 Smokeless tobacco: Never Tobacco comments: quit in his 20's - smoked socially while in college Vaping Use Vaping status: Never Used Substance Use Topics Alcohol use: Yes Comment: 1-2 drinks in A MONTH Drug use: No Spirits Model present: raúl zapata Physical Exam: There were no vitals filed for this visit. General Appearance: Well appearing, alert, in no acute distress, well-hydrated, well nourished. Participation of a fellow, resident, medical student, or advanced practice provider student in performing the sensitive examination was discussed with the patient or authorized telemarketing representative. The patient or authorized telemarketing representative has agreed to proceed with the sensitive examination. Anorectal: Perianal skin is intact. No erythema, induration or excoriation. No fissure, fistula or external hemorrhoids. Digital Rectal Exam: Anus: closed Resting tone: HIGH Squeeze tone: HIGH Valsalva: pelvic floor relaxation is Abnormal. Paradox contraction Puborectalis: non tender to palpation on valsalva Rectocele: Absent Full thickness rectal prolapse: No Assessment Anorectal Physiology tests reviewed at today's visit: Below is a preliminary interpretation of results by this consulting provider, which may change after the final interpretation/result is finalized. The sensitive examination was discussed with the Patient or Patient's Authorized Agricultural Science Professor. Asapplicable, any other physician, advance practice provider, medical student, or other health professional student that will be observing or involved in the sensitive examination for educational or training purposes was discussed with the Patient or Authorized Agricultural Science Professor. The Patient or Authorized Agricultural Science Professor has agreed to proceed with the sensitive examination. (Sensitive examination includes inspection and/or palpation of the breasts, pelvis, prostate and anorectal regions) Reason for testing: constipation and straining to defecate Ileoanal pouch: No Anorectal Manometry Testing: Strength: Anorectal manometry was performed. Average Pressure Interpretation Rest: 44 mmHg This is within normal range. Normal range is 35-50 mmHg. Squeeze: 133 mmHg This is well above normal range. Normal range is 75 - 100 mmHg. There is appropriate incremental change between resting and squeeze pressures which can indicate good pelvic floor movement with squeeze. Sensory: Sensation Volume First sensation : 12 mL / Normal Range: 40-80 mL First urge to defecate: 46 mL / Normal Range: 80-120 mL Maximum tolerable volume: 60 mL / Normal Range: 120-180 mL Recto-anal inhibitory reflex: yes Balloon expulsion: no This exhibit hyperacute rectal sensation with at least 2/3 sensory tests. A recto-anal inhibitory reflex (RAIR) was present. This is a normal reflex. EMG Recruitment: EMG recruitment was performed. The patient shows a normal increase in activity with squeeze, and a paradoxic increase in activity with valsalva. This indicates abnormal pelvic floor movement, which can be indicative of poor pelvic floor coordination secondary to pelvic floor non-relaxation / dyssynergia. Assessment and Plan: Javier Bond is a 84 year old MALE who was referred for anorectal physiology testing due to symptoms of constipation and inability to defecate without manual disimpaction . The testing that was performed today includes anorectal manometry, rectal sensory testing, balloon expulsion and EMG recruitment. These test results were reviewed with Javier Bond and are listed above. Overall, these tests show abnormal anal sphincter strength, hyperacute rectal sensation, and abnormal pelvic floor movement. After review of the patient's history, physical exam findings, anorectal manometry and EMGresults, the patient may have obstructive defecation due to non-relaxation of the puborectalis/pelvic floor dyssynergia which could contribute to their symptoms. Recommendations for this include: - Obstructive defecation: 1. Stay hydrated by drinking at least 8 glasses of water per day. This will help to keep your bowelhabits more regular. 2. Continue taking your bowel regimen as prescribed. 3. You may take a daily stool softener (Miralax). Keeping your stools soft will improve your ability to evacuate more regularly. Start with 17g (1 capful) daily and adjust every 2-3 days as need to achieve formed, soft stool. If [id number] stool softeners do not work, then seek consultation with your primary care physician or a layout artist to discuss prescription stool softeners or motility medications Baclofen suppository at bedtime. 4. Squatty potty/foot stool to aid with defecation: (available online, [employer], [employer], [employer], etc. ) 5. Pelvic floor physical therapy. The goal of this therapy is to retrain the pelvic floor muscles to more appropriately relax and therefore improve evacuation of stool. Physical therapy is the most effective way to get the pelvic floor muscles moving and coordinating correctly. Pelvic floor PT was o rdered today, reviewed scheduling process with patient and how to find local therapists. 6. There are no surgical options to improve pelvic muscle coordination. 7. Obstructive defecation/pelvic floor dysfunction handout reviewed and provided to patient. 8. Patient was instructed to follow up virtual visit in 3 months after completion of physical therapy and adherence to suggested bowel regimen. 9. Follow up with your referring provider, Dr. Bahena. A copy of your test results will be sent to this provider. Daniela Noel APRN.TIME SIGNAL WIRER Pelvic Floor Colorectal Surgery I spent a total of 60 minutes on the date of the service which included preparing to see the patient, [id number] patient care, completing clinical documentation, obtaining and/or reviewing separately obtained history, performing a medically appropriate examination, counseling and educating the pat ient/family/caregiver, ordering medications, tests, or procedures, and communicating results to thepatient/family/caregiver. [facility] Telephone encounter Note * Telephone Encounter - Francisco Bahena MD - 12/19/2024 8:30 AM EDT Let (Peter) know that his urine culture did grow bacteria. Hs he had any recent increased urine frequency, urgency, accidents, dysuria and sudden changes in his memory. If not I would prefer notto treat. [facility]03-21-20[facility] Telephone encounter Note* Telephone Encounter - Kari Gonzalez RN - 12/14/2024 3:03 PM EDT Spouse returns call and message reviewed. Peter will have urine culture completed just not sure when she will be able to do it for sure. Reviewed hours of lab. Kari Gonzalez RN [facility]03-21-2025 Miscellaneous Notes* Telephone Encounter - Kari Gonzalez RN - 12/14/2024 3:03 PM EDT Spouse returns call and message reviewed. Peter will have urine culture completed just not sure when she will be able to do it for sure. Reviewed hours of lab. Kari Gonzalez RN * Telephone Encounter - Yash Monroe MA - 12/14/2024 1:14 PM EDT Left message for to contact office. Yash Monroe MA * Telephone Encounter - Francisco Bahena MD - 12/14/2024 12:52 PM EDT Let know the lower back and left lower quadrant pain is not new and has been chronic for some time now. Let know I placed an order to get urine culture if she can have him do that to see if any bacteria grow. If so then I would treat. * Telephone Encounter - Yash Monroe MA - 12/14/2024 9:05 AM EDT spoke with she indicated no symptoms of UTI; no burning or frequency. Patient still has the lower back/lower Quad pain, which is said she probably not related to the UTI. said she would hate to ignore the possible infection as his has had UTI's in the past and seesUrology. Yash Monroe MA * Telephone Encounter - Francisco Bahena MD - 12/13/2024 10:12 AM EDT Make sure patient is not having symptoms of a UTI. If so will need treated. His other labs will be reviewed at his up coming appt with me. [facility] Telephone encounter Note * Telephone Encounter - Yash Monroe MA - 12/14/2024 1:14 PM EDT Left message for to contact office. Yash Monroe MA [facility] History of Present illness Narrative* Riaz Williamson - 12/14/2024 12:59 PM EDT Javier Bond 1940 12/14/2024 HISTORY OF PRESENT ILLNESS: This is an 83- year old man, presenting today with his spouse for follow up of VANESSA. Pts spouse contributes majority of history today. He has been seen in our office previously for questionable MGUS which has since been ruled out. He initially presented with abnormal SPEP in 2022. Per Dr. Keys's previous note dated 03/18/2023: "The initial SPEP 12/02/2022 identified an atypical region of restricted mobility which may represent an unusual presentation of polyclonal immunoglobulins, but cannot rule out the presence of an low level Mprotein. The M protein concentration was 0.00. The subsequent immunofixation reported a poorly defined region of restricted mobility in the lambda marisa. Pattern is less well-defined or fainter than typically seen in monoclonal gammopathy" No further follow up indicated for this at this time as repeat lab work was stable. He has received IV iron in the past for iron deficiency. Currently taking PO iron liquid daily so significant change in iron studies. Chronic constipation taking Trulance weekly. Rx from Dr. Barnhart for constipation. Pt note pretty severe at times. He also takes 40 mg protonix BID. He denies new or worsening SOB, CP. No recent illnesses. No fevers. He notes that he just feels cold all the time. Sits under heated blanket in front of heat register all day. Spouse states that "he is constantly shivering" . TSH normal. No unexplained bleeding or bruising. No changes in bowel or bladder habits. Appetite is good. Interval Hx: Mr. Bond presents today with his spouse. He reports feeling generally well today. Notes shiveringepisodes have improve. No overt s/s of bleeding. Denies hematuria, hematochezia. Seeing someone next week for pelvic floor dysfunction. [place] next week. Continues to have severe issues with constipation, following with Dr. Marroquin. Reviewed labs and iron studies in detail with patient and spouse today. Would not plan to restart PO iron as he does not appear to benefit from it. REVIEW OF SYSTEMS: All systems reviewed on 12/17/2024 with pertinent positives and negatives as outlined in the interval history. PHYSICAL EXAM: BP 109/58 Pulse 66 Temp 36.3 C (97.4 F) (Temporal) Wt 71.9 kg (158 lb 8 oz) SpO2 100% BMI 22.11 kg/m2 Body mass index is 22.11 kg/m . Estimated body surface area is 1.9 meters squared as calculated from the following: Height as of 10/16/24: 180.3 cm (5' 11"). Weight as of this encounter: 71.9 kg (158 lb 8 oz). ECO- Restricted in physically strenuous activity. Carries out light duty. Physical Exam Vitals reviewed. Constitutional: Appearance: Normal appearance. HENT: Head: Normocephalic and atraumatic. Nose: Nose normal. Eyes: Conjunctiva/sclera: Conjunctivae normal. Cardiovascular: Rate and Rhythm: Normal rate and regular rhythm. Pulmonary: Effort: Pulmonary effort is normal. No respiratory distress. Abdominal: General: There is no distension. Palpations: Abdomen is soft. Tenderness: There is no abdominal tenderness. Musculoskeletal: Cervical back: Normal range of motion. Right lower leg: No edema. Left lower leg: No edema. Skin: Coloration: Skin is pale. Skin is not jaundiced. Findings: No bruising or rash. Neurological: General: No focal deficit present. Mental Status: He is alert. Mental status is at baseline. Psychiatric: Mood and Affect: Mood normal. LABS: Lab Results Component Value Date WBC 3.83 12/12/2024 HB 12.5 (L) 12/12/2024 MCV 99.0 12/12/2024 PLT 188 12/12/2024 Lab Results Component Value Date NA 139 12/12/2024 K 4.4 12/12/2024 CO2 27 12/12/2024 BUN 24 12/12/2024 CREAT 0.95 12/12/2024 TBILI 0.6 12/12/2024 TPROT 6.8 12/12/2024 ALB 4.4 12/12/2024 ALKPHOS 69 12/12/2024 ALT 20 12/12/2024 AST 19 12/12/2024 Latest Reference Range & Units 07/04/24 16:48 08/07/24 16:52 08/30/24 14:12 10/10/24 09:10 Ferritin 30.3 - 565.7 ng/mL 39.3 Iron 41 - 186 ug/dL 14 (L) 39 (L) 154 33 (L) TIBC 232 - 386 ug/dL 391 (H) 381 363 340 Transferrin Saturation 15.0 - 57.0 % 3.6 (L) 10.2 (L) 42.4 9.7 (L) (L): Data is abnormally low (H): Data is abnormally high IMPRESSION: Javier Bond is a 84 year old male presents as a referral by his primary care for further management of VANESSA Iron deficiency anemia - reviewed potential causes and treatments for anemia, including malabsorption, bleeding, CKD, liver dysfunction, and bone marrow disorders. Pt and spouse acknowledged. Pt has required IV iron in thepast. Last dose was 2022 - H/H is overall stable. - has had GI workup, last colonoscopy was in November 2023, follows with Dr. Barnhart. (No records currently available) - taking PO liquid iron daily, does not appear to be absorbing, likely due to PPI use. - ok to discontinue as iron also likely contributing to severe constipation - reasonable to discontinue ASA 81mg PLAN: - long hx of VANESSA, last colonoscopy in November - ferritin upon initial cs indicative of iron deficiency drawn in 06/2024 - iron studies have remained low, despite consistent PO iron. - OK to discontinue PO iron as he does not appear to absorb this and likely contributing to severe constipation. Pts spouse acknowledged - received IV iron sucrose 200mg x 5 last dose 11/02/2024, tolerated well. - CBC continues to improve. Hgb up to 12.5, iron studies WNL. - continue to follow CBC, ferritin, and iron studies. Plan to check Q3 months. - would recommend IV iron for ferritin under 50 -OV in 6 months following labs Riaz Williamson APRN.TIME SIGNAL WIRER I spent a total of 30 minutes on the date of the service which included preparing to see the patient, [id number] patient care, completing clinical documentation, obtaining and/or reviewing separately obtained history, performing a medically appropriate examination, and ordering medications, tests, or procedures. Portions of this note including HPI, ROS, impression/plan may have been copied forward as to provide important historical information essential in contributing to medical decision making. Documentation has been reviewed and edited as necessary to support clinical decision making for today's visit and to reflect my own independent evaluation of this patient. documented in this [facility]03-[facility] Telephone encounter Note * Telephone Encounter - Francisco Bahena MD - 12/14/2024 12:52 PM EDT Let know the lower back and left lower quadrant pain is not new and has been chronic for some time now. Let know I placed an order to get urine culture if she can have him do that to see if any bacteria grow. If so then I would treat. [facility]03-[facility] Telephone encounter Note* Telephone Encounter - Yash Monroe MA - 12/14/2024 9:05 AM EDT spoke with she indicated no symptoms of UTI; no burning or frequency. Patient still has the lower back/lower Quad pain, which is said she probably not related to the UTI. said she would hate to ignore the possible infection as his has had UTI's in the past and seesUrology. Yash Monroe MA [facility]03-20-20[facility] Telephone encounter Note* Telephone Encounter - Francisco Bahena MD - 12/13/2024 10:12 AM EDT Make sure patient is not having symptoms of a UTI. If so will need treated. His other labs will be reviewed at his up coming appt with me. [facility]03-19-[facility] Telephone encounter Note* Telephone Encounter - Yash Monroe MA - 12/12/2024 10:10 AM EDT notified and voiced understanding. Yash Monroe MA [facility]03-19-2025 Miscellaneous Notes* Telephone Encounter - Yash Monroe MA - 12/12/2024 10:10 AM EDT notified and voiced understanding. Yash Monroe MA * Telephone Encounter - Francisco Bahena MD - 12/11/2024 5:18 PM EDT Let know the T chest shows a healing rib fracture on the left side in the area he has had the pain. This will probably take about another 4 weeks to heal. documented in this [facility]Ch[facility]03-[facility]-2025 Telephone encounter Note * Telephone Encounter - Francisco Bahena MD - 12/11/2024 5:18 PM EDT Let know the T chest shows a healing rib fracture on the left side in the area he has had the pain. This will probably take about another 4 weeks to heal. [facility]03-[facility] History of Present illness Narrative* Kaylee Araujo RT(Aris) - 12/04/2024 3:40 PM EDT Radiology Service Progress Note PATIENT NAME: Javier Bond DATE OF SERVICE: December 04, 2024 TIME: 4:09 PM PATIENT IDENTITY VERIFICATION COMPLETED USING TWO (2) IDENTIFIERS: Name and Date of confirmedby patient verbally. FALL SCREENING: Has the patient had 2 falls in the last year or 1 fall with injury or currently using an Ambulatory Assistive Device (Walker, Cane, Wheelchair, Crutches, etc.)? No PATIENT GENDER DATA: Assigned male at PATIENT RELEVANT IMPLANT DATA REVIEWED: Not Applicable PATIENT PRESENTS WITH AN IMPLANTABLE OR ATTACHED BLOW PIT OPERATOR: No RADIOLOGY DEPARTMENT: CT; Exam(s) Completed: Chest PERIPHERAL IV DATA: Not applicable SIGNED BY: RT Nando(R) December 04, 2024 4:09 PM documented in this encounterCh[facility]03-11-2025 [facility] Telephone encounter Note* Telephone Encounter - Paulette Summers MA - 12/04/2024 11:36 AM EDT Prescription Refill Information The patient has been identified by name and date of : Yes Caregiver verified no other encounters exist for this prescription request: Yes Caregiver confirmed with patient/requestor that no other refills are due, in the near future, with this provider at this time: No The last office visit in the department: 11/10/24 Does the patient have a future office visit with this provider/department: Yes Requested Prescriptions Pending Prescriptions Disp Refills traZODone (DESYREL) 100 mg tablet 90 tablet 0 Sig: Take 1 tablet by mouth daily at bedtime. Paulette Summers MA December 04, 2024 11:36 AM [facility]03-[facility] Miscellaneous Notes* Telephone Encounter - Paulette Summers MA - 12/04/2024 11:36 AM EDT Prescription Refill Information The patient has been identified by name and date of : Yes Caregiver verified no other encounters exist for this prescription request: Yes Caregiver confirmed with patient/requestor that no other refills are due, in the near future, with this provider at this time: No The last office visit in the department: 11/10/24 Does the patient have a future office visit with this provider/department: Yes Requested Prescriptions Pending Prescriptions Disp Refills traZODone (DESYREL) 100 mg tablet 90 tablet 0 Sig: Take 1 tablet by mouth daily at bedtime. Paulette Summers MA December 04, 2024 11:36 AM documented in this encounterCh[facility]03-10-2025 Telephone encounter Note * Telephone Encounter - Yash Monroe MA - 12/03/2024 3:12 PM EDT ----- Message from Dorothy Peña sent at 12/03/2024 2:49 PM EDT ----- Spoke with and scheduled. Droothy Padgett ----- Message ----- From: Yash Monroe MA Sent: 11/30/2024 11:53 AM EDT To: [employer] [facility]03-10-2025 Miscellaneous Notes* Telephone Encounter - Yash Monroe MA - 12/03/2024 3:12 PM EDT ----- Message from Dorothy Peña sent at 12/03/2024 2:49 PM EDT ----- Spoke with and scheduled. Dorothy Padgett ----- Message ----- From: Yash Monroe MA Sent: 11/30/2024 11:53 AM EDT To: [employer] * Telephone Encounter - Yash Monroe MA - 11/30/2024 11:53 AM EST notified and voiced understanding. Please contact to schedule. Yash Monroe MA * Telephone Encounter - Francisco Bahena MD - 11/29/2024 9:08 PM EST Let know I heard back from radiology today and was advised to get a CT of the chest without contrast to look at the left lower ribs. Order placed. * Telephone Encounter - Iván Posey LPN - 11/23/2024 4:56 PM EST Patient returned call and went over results below but Dr Bahena stopped mid sentence, so sending back to see what else he wanted to add to the note. will wait to get call with what else needs told to her. * Telephone Encounter - Francisco Bahena MD - 11/23/2024 4:17 PM EST Let know the bone scan shows some uptake in the left lower ribs where he has his pain at timesconsistent with post traumatic changes. I could try getting documented in this encounterCh[facility]03-07-2025 Telephone encounter Note * Telephone Encounter - Yash Monroe MA - 11/30/2024 11:53 AM EST notified and voiced understanding. Please contact to schedule. Yash Monroe MA [facility]03-[facility] Telephone encounter Note* Telephone Encounter - Francisco Bahena MD - 11/29/2024 9:08 PM EST Let know I heard back from radiology today and was advised to get a CT of the chest without contrast to look at the left lower ribs. Order placed. [facility] Telephone encounter Note* Telephone Encounter - Iván Posey LPN - 11/23/2024 4:56 PM EST Patient returned call and went over results below but Dr Bahena stopped mid sentence, so sending back to see what else he wanted to add to the note. will wait to get call with what else needs told to her. [facility]28[facility] History of Present illness Narrative* Iván Posey LPN - 11/23/2024 4:54 PM EST Patient returned call and went over notes below from Dr Bahena, few times so she could write instructions down with understanding. Patient already has early December appt with PCP so left that as 4week follow up. * Yash Monroe MA - 11/23/2024 4:21 PM EST Left message for . Please see message below. Yash Monroe MA * Francisco Bahena MD - 11/23/2024 3:45 PM EST Let the know I got the message about Javier still being cold. There can be multiple causes for this outside of the low iron. His aging, how thin he is and his thin skin contribute to this. His dementia maybe contributing to this as well. His BP has been running lower lately and this may also play a role. Lets have him stop the lisinopril 5 mg a day for the next week and then the following week stop thehydrochlorothiazide 12.5 mg a day. If they have a bP cuff at home monitor his BP once a day and make sure it is not going high then 150/90. I would then want to see him in 4 weeks to see how he is doing with these changes. (FYI to Dr. Yu) documented in this [facility]Ch[facility]25 NoteHNO ID: [id number] Author: YASH MONROE MA Service: ? Author Type: Trumpet Teacher Type: Progress Notes Filed: 11/27/2024 08:32 Note Text: Left message for . Please see message below. Yash Monroe [place] [address]-28-2025 Telephone encounter Note* Telephone Encounter - Francisco Bahena MD - 11/23/2024 4:17 PM EST Let know the bone scan shows some uptake in the left lower ribs where he has his pain at timesconsistent with post traumatic changes. I could try getting [facility]02-28-2025 Telephone encounter Note* Telephone Encounter - Francicso Bahena MD - 11/23/2024 4:04 PM EST TE encounter started to reach out to patient to have him stop his BP meds and will follow up with him in 3-4 weeks. Messaged forwarded to Dr. Yu as an FYI [facility]02-28-2025 Miscellaneous Notes* Telephone Encounter - Francisco Bahena MD - 11/23/2024 4:04 PM EST TE encounter started to reach out to patient to have him stop his BP meds and will follow up with him in 3-[address] weeks. Messaged forwarded to Dr. Yu as an FYI * Telephone Encounter - Belem Umana LPN - 11/23/2024 1:10 PM EST Patient's is aware of all information. She requested I forward this note to Dr. Bahena and . Belem Umana LPN * Telephone Encounter - Riaz Williamson - 11/23/2024 12:24 PM EST No indication for additional iron at this time. His labs are improving. Hgb up to 12.3 I believed that this was also dicussed with his PCP, Dr. Bahena. I am sorry he is still experiencing these symptoms. There was some thought that improving anemia may help his cold intolerance and shivering but not indication for additional iron. (Ferritin now expectedly elevated following IV iron ad ministration) Would recommend that he address this with his PCP and neuro. Riaz Williamson APRN.TIME SIGNAL WIRER * Telephone Encounter - Belem Umana LPN - 11/23/2024 12:14 PM EST I spoke with the patient's . Patient/ deny any sick contacts, fever, SOB, new congestion, sore throat or any recent illness. Patient c/o of always feeling cold and shivering, some fatigue. Wondering about additional iron. Last dose of iron was 11/02 (5th dose). CBC and ferritin were drawn 11/06/2024. Belem Umana LPN * Telephone Encounter - Florecita Patel - 11/23/2024 10:25 AM EST Spouse called stating that a week after last treatment patient is freezing cold/shivering/fatigue. Spouse asking if patient would need more iron. Please advise. [place] has testing at [place] today. Can leave detailed message on voicemail documented in this encounterCh[facility]02[facility] Telephone encounter Note* Telephone Encounter - Belem Umana LPN - 11/23/2024 1:10 PM EST Patient's is aware of all information. She requested I forward this note to Dr. Bahena and . Belem Umana LPN [facility]02-28-2025 Telephone encounter Note* Telephone Encounter - Belem Umana LPN - 11/23/2024 1:04 PM EST See phone note. Belem Umana LPN [facility]02-28-2025 Miscellaneous Notes* Telephone Encounter - Belem Umana LPN - 11/23/2024 1:04 PM EST See phone note. Belem Umana LPN documented in this encounterChillic[facility]02-28-2025 Telephone encounter Note * Telephone Encounter - Riaz Williamson - 11/23/2024 12:24 PM EST No indication for additional iron at this time. His labs are improving. Hgb up to 12.3 I believed that this was also dicussed with his PCP, Dr. Bahena. I am sorry he is still experiencing these symptoms. There was some thought that improving anemia may help his cold intolerance and shivering but not indication for additional iron. (Ferritin now expectedly elevated following IV iron ad ministration) Would recommend that he address this with his PCP and neuro. Riaz Williamson APRN.TIME SIGNAL WIRER [facility] Work Phone: 1(221) 346-345502-28-2025 Telephone encounter Note* Telephone Encounter - Belem Umana LPN - 11/23/2024 12:14 PM EST I spoke with the patient's . Patient/ deny any sick contacts, fever, SOB, new congestion, sore throat or any recent illness. Patient c/o of always feeling cold and shivering, some fatigue. Wondering about additional iron. Last dose of iron was 11/02 (5th dose). CBC and ferritin were drawn 11/06/2024. Belem Umana LPN [facility]02-28-2025 History of Present illness Narrative* ScottpaulNay RT(R) - 11/23/2024 12:00 PM EST RADIOLOGY SERVICE PROGRESS NOTE SERVICE DATE: 11/23/2024 SERVICE TIME: 12:26 PM PATIENT IDENTITY VERIFICATION COMPLETED USING TWO (2) STANDARD IDENTIFIERS: Name and Date of confirmed by patient verbally FALL SCREENING: Has the patient had 2 falls in the last year or 1 fall with injury or currently using an Ambulatory Assistive Device (Walker, Cane, Wheelchair, Crutches, etc.)? Yes, Patient High Riskfor Falls What interventions were put in place to prevent falls during this visit? Instructed Patient to Callfor Help if Needed, Offered Assistance with Transfers/Clothing, Instructed Patient to Remain Seated(Not on Exam Table) Until Exam, and Escorted to/from Restroom PATIENT GENDER DATA: .male ALLERGIES: Reviewed and unchanged MEDICATIONS REVIEWED: Yes PATIENT RELEVANT IMPLANT DATA REVIEWED: Not Applicable PATIENT PRESENTS WITH AN IMPLANTABLE OR ATTACHED BLOW PIT OPERATOR: No CREATININE: Creatinine Date Value Ref Range Status 06/07/2024 0.99 0.73 - 1.22 mg/dL Final 11/22/2023 1.03 0.73 - 1.22 mg/dL Final 09/14/2023 0.93 0.73 - 1.22 mg/dL Final Estimated Glomerular Filtration Rate Date Value Ref Range Status 06/07/2024 77 >=60 mL/min/1.73m Final Comment: Estimated Glomerular Filtration Rate (eGFR) is calculated using the 2020 CKD-EPI creatinine equation. This equation utilizes serum creatinine, sex, and age as parameters. The creatinine assay has traceable calibration to isotope dilution- mass spectrometry. Refer to KDIGO guidelines for clinical interpretation. In patients with unstable renal function, e.g. those with acute kidney injury, the eGFRmay not accurately reflect actual GFR. eGFR- Date Value Ref Range Status 09/04/2021 >60 Final P.O.C.T. RESULTS: N/A November 23, [address] PERFORMED: No IV SITE: Ambulatory: A peripheral IV was started in the Left antecubital site with a Angio cath: 24gauge. POST EXAM PIV STATUS: Discontinued PROCEDURE TYPE: NM INJECT: Whole Body Bone Scan. 22.1 mCi Tc99m MDP. No other medications given.. ADMINISTRATION TIME: 1232 PATIENT DISCHARGED TO: Ambulatory patient, left NM department area. Is this a therapy: No A Diagnostic radioactive procedure has taken place, with no further precautions necessary other than routine body substance precautions. More information regarding radiation safety can be found usingHotel Urbanos link: [email or web address] SIGNATURE: RT Susie(R) PATIENT NAME: Javier Bond DATE: November 23, 2024 TIME: 12:26 PM PAGER/CONTACT #: documented in this encounterCh[facility]02[facility]-2025 [facility] Telephone encounter Note* Telephone Encounter - Florecita Patel - 11/23/2024 10:25 AM EST Spouse called stating that a week after last treatment patient is freezing cold/shivering/fatigue. Spouse asking if patient would need more iron. Please advise. Patient has testing at [place] today. Can leave detailed message on voicemail [facility] Work Phone: 1(209) 561-136202-26-2025 Telephone encounter Note* Telephone Encounter - Ronan Jean LPN - 11/21/2024 7:19 AM EST Prescription Refill Information The patient has been identified by name and date of : Yes Caregiver verified no other encounters exist for this prescription request: Yes Caregiver confirmed with patient/requestor that no other refills are due, in the near future, with this provider at this time: Yes The last office visit in the department: 11/10/24 Does the patient have a future office visit with this provider/department: Yes Requested Prescriptions Pending Prescriptions Disp Refills pantoprazole (PROTONIX) 40 mg tablet 90 tablet 1 Sig: Take 1 tablet by mouth two times a day. Ronan Jean LPN November 21, 2024 7:19 AM [facility]02-26-2025 Miscellaneous Notes* Telephone Encounter - Ronan Jean LPN - 11/21/2024 7:19 AM EST Prescription Refill Information The patient has been identified by name and date of : Yes Caregiver verified no other encounters exist for this prescription request: Yes Caregiver confirmed with patient/requestor that no other refills are due, in the near future, with this provider at this time: Yes The last office visit in the department: 11/10/24 Does the patient have a future office visit with this provider/department: Yes Requested Prescriptions Pending Prescriptions Disp Refills pantoprazole DR (PROTONIX) 40 mg tablet 90 tablet 1 Sig: Take 1 tablet by mouth two times a day. Ronan Jean LPN November 21, 2024 7:19 AM documented in this encounterCh[facility]ic[facility]02-17-2025 Telephone encounter Note * Telephone Encounter - Yash Monroe MA - 11/12/2024 2:48 PM EST Patient scheduled. Yash Monroe MA [facility]02-17-2025 Miscellaneous Notes* Telephone Encounter - Yash Monroe MA - 11/12/2024 2:48 PM EST Patient scheduled. Yash Monroe MA * Telephone Encounter - Ronan Jean LPN - 11/10/2024 2:09 PM EST Please assist pt in scheduling NM Bone whole body scan ordered by Dr Bahena on 11/10/24. Ok to speakwith pt's to schedule. Ronan Jean LPN documented in this encounterChillic[facility]02-15-2025 Telephone encounter Note * Telephone Encounter - Ronan Jean LPN - 11/10/2024 2:09 PM EST Please assist pt in scheduling NM Bone whole body scan ordered by Dr Bahena on 11/10/24. Ok to speakwith pt's to schedule. Ronan Jean LPN [facility]02-15-2025 Instructions* Patient Instructions* Francisco Bahena MD - 11/10/2024 1:59 PM EST Please get labs and urine test done on or after 12/21/2024 prior to your next visit on 12/31/[address] Bahena. Stop the atorvastatin. documented in this encounterChillic[facility]02-15-2025 [facility] History of Present illness Narrative* Francisco Bahena MD - 11/10/2024 1:22 PM EST Chief Complaint Patient presents with: Follow Up: Ribs and depression. HPI Javier Bond is a 84 year old male who presents here today for Above Complaints.. Patient has not been having the pain in the left lower ribs like he had been. He was placed on Trulance per gastro but if he takes it daily he gets explosive diarrhea. He is also on colace. After a recent visit with Cherelle he was to start zoloft for depression and then neuro started nemenda and his noted he was doing better so she has not started the zoloft at this point. She doeshave the script. Past medical history, appointments, medications, allergies reviewed. 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/24/2022 S/p removal 08/2022 Essential hypertension, benign Essential tremor 11/21/2023 Family history of malignant neoplasm of gastrointestinal tract GERD (gastroesophageal reflux disease) 03/25/2009 Hiatal hernia 06/09/2022 History of compression fracture of spine 11/05/2019 Hypercalciuria, idiopathic 02/11/2020 Hypertrophy of prostate without urinary obstruction and other lower urinary tract symptoms (LUTS) Ilioinguinal neuralgia of left side 09/27/2019 Internal hemorrhoids without mention of complication Iron deficiency anemia 07/23/[address] 10/04/2022 DPA: Peter Lumbar degenerative disc disease 09/14/2012 Lumbar radiculopathy 07/03/2020 Medicare annual wellness visit, subsequent 09/10/2021 Medicare Part B: Not able to find Last done: 09/10/2021 Memory deficits 11/21/202310/2023: w/u ok, patient declined med management Nephrolithiasis 07/04/2007 Neuropathy - (NOS) 08/30/2024 NCS: 08/2024 Oropharyngeal dysphagia 12/25/2020 Osteoporosis 01/28/2020 Other specified anemias 03/16/2022 Acute blood loss 11/2020 (post surgery) Pain in both hands 06/21/2024 Rheum factor+(05/2024) Peripheral edema 05/21/2022 Primary osteoarthritis of both first carpometacarpal joints 05/04/2018 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 09/09/2015 Rosacea 09/09/2015 S/P lumbar spinal fusion 12/15/2020 Sepsis due to Gram-negative organism with septic shock (HCC) 12/17/2020 Proteus mirabilis UTI Situational anxiety 06/27/2019 Situational depression 02/27/2021 Spondylosis of lumbar region without myelopathy or radiculopathy 03/10/2018 Thyroid nodule 12/03/[address] Zacarias Unstable gait 05/21/2021 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 05/11/2021 Previous Surgical History PAST SURGICAL HISTORY Procedure Laterality Date ARTHRP INTERCARPAL/CARP/MTCRPL JT INTERPOSITION Left 05/24/2018 Left thumb CMC arthroplasty with LRTI and MCP pinning of left thumb COLONOSCOPY FLX DX W/COLLJ SPEC WHEN PFRMD 07/17/082012 COLONOSCOPY FLX DX W/COLLJ SPEC WHEN PFRMD [facility]/28/[facility] 02/20/2021 stent removal EGD TRANSORAL BIOPSY SINGLE/MULTIPLE 12/26/2008 ESOPHAGOGASTRODUODENOSCOPY TRANSORAL DIAGNOSTIC 03/18/2020 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 PERIPHERAL NERVE BLOCK (MOD 59) Bilateral 11/01/2016, 03/28/2018 bilateral lumbar facet medial branch nerve block (l4-5, L5-S1) REMOVAL OF HEMORRHOID CLOT 06/2017 SKIN BIOPSY HX SPINAL FUSION,ANT,EA ADNL LEVEL 2001 TONSILLECTOMY HX Childhood TRANSURETHRAL ELEC-SURG PROSTATECTOM 01/14/2023 XCAPSL CTRC RMVL INSJ IO LENS PROSTH W/O ECP Bilateral 08/25/2016 Family History FAMILY HISTORY Problem Relation Age of Onset Cancer Mother lung Cancer Father colon Cancer Brother lymphoma Patient Allergies ALLERGIES Allergen Reactions Contrast Dye Hives Finacea [Azelaic Ac* Rash Bactrim [Sulfametho* Unknown Bextra [Valdecoxib] Unknown Cardura [Doxazosin * Unknown Ciprofloxacin Unknown Cytotec [Misoprosto* Unknown Fosamax [Alendronat* Vomiting heartburn, vomiting Gabapentin Mental Status Change Ketoconazole Unknown Levofloxacin Other: See Comments Pseudomonas Mobic [Meloxicam] Unknown Nitrofurantoin Other: See Comments Per , "he didn't feel well" - unsure of reaction Nsaids (Non-Steroid* Unknown GI UPSET Relafen [Nabumetone] Unknown Terbinafine GI Upset Current Medications Current Outpatient Medications on File Prior to Visit Medication Sig guaifenesin/pseudoephedrne HCl (MUCINEX D ORAL) Take by mouth. hydroCHLOROthiazide 12.5 mg tablet Take 1 tablet by mouth once daily. donepezil (ARICEPT) 5 mg tablet Take 2 tablets by mouth daily at bedtime. docusate sodium (COLACE) 50 mg capsule Take 50 mg by mouth two times a day. TRULANCE 3 mg tablet Take 3 mg by mouth once daily. lisinopril (ZESTRIL) 5 mg tablet Take 1 tablet by mouth once daily. ipratropium bromide (ATROVENT) 42 mcg (0.06 %) nasal spray Use 2 Sprays in the nose three times a day. memantine (NAMENDA) 10 mg tablet Take 1 tab twice daily (after completing the 5mg titration Rx). traZODone (DESYREL) 100 mg tablet Take 1 tablet by mouth daily at bedtime. Methenamine Hippurate (HIPREX) 1 gram tablet Take 1 tablet by mouth two times a day. atorvastatin (LIPITOR) 10 mg tablet Take 1 tablet by mouth daily at bedtime. For cholesterol. furosemide (LASIX) 20 mg tablet Take 1 tablet by mouth once daily. pantoprazole DR (PROTONIX) 40 mg tablet Take 1 tablet by mouth two times a day. dupilumab 300 mg/2 mL subcutaneous syringe ([employer]) Inject 2 mL subcutaneously every 4 weeks. PerDerm: Dr. Mariee Lactobacillus acidophilus (PROBIOTIC ACIDOPHILUS ORAL) Take 2 capsules by mouth once daily. d-mannose powd Take by mouth once daily. triamcinolone acetonide (KENALOG) 0.1 % cream Apply 1 application to affected area as directed. doxycycline 20 mg tablet Take 20 mg by mouth twice daily. multivit-min/iron/folic acid/K (ADULTS MULTIVITAMIN ORAL) Take 1 tablet by mouth once daily. MEDICAL SUPPLY KAFO for right lower extremity. acetaminophen (TYLENOL) 500 mg tablet Take 2 tablets by mouth every 8 hours as needed for Pain or Fever. aspirin 81 mg chewable tablet Take 1 tablet by mouth once daily. sertraline (ZOLOFT) 25 mg tablet Take 1 tablet by mouth once daily. memantine (NAMENDA) 5 mg tablet Take 1 tablet daily for 1 week, then increase to 1 tablet twice daily for 1 week, then increase to 1 tablet in the AM and 2 tablets in the PM for 1 week. When you complete the 5mg tablet titration then transition to the 10mg tablets (separate Rx). ferrous sulfate 300 mg (60 mg iron)/5 mL syrup Take 5 mL by mouth once daily. (Patient not taking: Reported on 11/10/2024) Ascorbic Acid (VITAMIN C) 500 mg chew Take 1 tablet (500 mg) by mouth once daily. (Patient not taking: Reported on 11/10/2024) No current facility-administered medications on file prior to visit. Social History Social History Tobacco Use Smoking status: Former Current packs/day: 0.00 Types: Cigarettes Quit date: 06/24/1963 Years since quittin.4 Smokeless tobacco: Never Tobacco comments: quit in his 20's - smoked socially while in college Vaping Use Vaping status: Never Used Substance Use Topics Alcohol use: Yes Comment: 1-2 drinks in A MONTH Drug use: No Review of Symptoms REVIEW OF SYSTEMS See HPI EXAM: BP 100/62 (BP Site: Left Arm, BP Position: Sitting, BP Cuff Size: Regular Adult) Pulse 70 Temp 36.4 C (97.5 F) Resp 16 Wt 71 kg (156 lb 8 oz) SpO2 98% BMI 21.83 kg/m General Appearance: Well appearing, alert, in no acute distress, well-hydrated, well nourished.. Lungs: Lungs clear to auscultation. No wheezing, rhonchi, rales.. Abdomen: Normal abdominal exam, Abdomen soft, non-tender. Bowel sounds normal. No masses, organomegaly. Musculoskeletal: has mild tenderness to palpation in the left lateral/anterior ribs. Not as significant as when we did x-rays on 10/10/2024. . Health Maintenance List Advance Directive Discussion due on 09/26/2024 Covid-19 Vaccine( season) due on 01/04/2025 Diabetes Screening due on 06/07/2027 DTaP,Tdap,Td Vaccine(4 - Td or Tdap) due on 03/13/2028 Influenza Vaccine Completed RSV Vaccine Completed Shingrix Vaccine Completed Pneumococcal Vaccine: 50+ Completed Colorectal Cancer Screening Discontinued Data reviewed Results XR RIBS/CHEST 3V AP RIB/OBLS/CXR LEFT (Acc#[id number]) (Order [id number]) Patient Info Patient Name Sex aJvier Bond ([id number]) Male 1940 10/10/2024 9:30 AM - Radiology, [place] [facility] Impression IMPRESSION: No radiographic evidence of acute displaced left rib fracture A/P ASSESSMENT/PLAN: 1. Rib pain on left side - ICD9: 786.50, ICD10: R07.81 (primary diagnosis) Since pain is persisting will check a nuclear bone scan to look for any litic bone lesions. - NM BONE WHOLE BODY 2. Situational depression - ICD9: 309.0, ICD10: F43.21 - per patient has been better since the Namenda was started. Will hold on him taking the zoloft at this time. 3. Chronic constipation - ICD9: 564.00, ICD10: K59.09 - gave some input on taking the Trulance and maybe holding the colace. Also advised him if he continues to have issues to reach out to his GI provider, Dr. Marroquin. F/u next appt 12/31/2024. Labs prior and ordered. Will stop lipitor and see if ok to stay off it. I spent a total of 40 minutes on the date of the service which included preparing to see the patient, [id number] patient care, completing clinical documentation, performing a medically appropriate examination, counseling and educating the patient/family/caregiver and ordering medications, tests, or procedures. Francisco Bahena MD documented in this encounterCh[facility]02-[facility]25 Telephone encounter Note * Telephone Encounter - Francisco Bahena MD - 11/05/2024 4:01 PM EST The following approved medication requests have been transmitted electronically. Requested Prescriptions Signed Prescriptions Disp Refills hydroCHLOROthiazide 12.5 mg tablet 90 tablet 1 Sig: Take 1 tablet by mouth once daily. Authorizing Provider: FRANCISCO BAHENA MD [facility]02-10-2025 Miscellaneous Notes* Telephone Encounter - Francisco Bahena MD - 11/05/2024 4:01 PM EST The following approved medication requests have been transmitted electronically. Requested Prescriptions Signed Prescriptions Disp Refills hydroCHLOROthiazide 12.5 mg tablet 90 tablet 1 Sig: Take 1 tablet by mouth once daily. Authorizing Provider: FRANICSCO BAHENA MD * Telephone Encounter - Valeria Roland MA - 11/05/2024 3:32 PM EST Prescription Refill Information The patient has been identified by name and date of : Yes Caregiver verified no other encounters exist for this prescription request: Yes Caregiver confirmed with patient/requestor that no other refills are due, in the near future, with this provider at this time: Yes The last office visit in the department: 10/18/24 Does the patient have a future office visit with this provider/department: Yes Requested Prescriptions Pending Prescriptions Disp Refills hydroCHLOROthiazide 12.5 mg tablet 90 tablet 1 Sig: Take 1 tablet by mouth once daily. Valeria Roland MA November 05, 2024 3:32 PM documented in this encounterChillicothe Hospital02-10-2025 Telephone encounter Note * Telephone Encounter - Valeria Roland MA - 11/05/2024 3:32 PM EST Prescription Refill Information The patient has been identified by name and date of : Yes Caregiver verified no other encounters exist for this prescription request: Yes Caregiver confirmed with patient/requestor that no other refills are due, in the near future, with this provider at this time: Yes The last office visit in the department: 10/18/24 Does the patient have a future office visit with this provider/department: Yes Requested Prescriptions Pending Prescriptions Disp Refills hydroCHLOROthiazide 12.5 mg tablet 90 tablet 1 Sig: Take 1 tablet by mouth once daily. Valeria Roland MA November 05, 2024 3:32 PM [facility]02-04-2025 Telephone encounter Note* Telephone Encounter - Kari Gonzalez RN - 10/30/2024 8:33 AM EST Jacqueline with [facility] calls to verify donepezil prescription is wanted for 5 mg take 2 at bedtime. Per below, patient request because having difficulty swallowing. Jacqueline to fill prescription and cancel the 10 mg order. Kari Gonzalez RN [facility]02-04-2025 Miscellaneous Notes* Telephone Encounter - Kari Gonzalez RN - 10/30/2024 8:33 AM EST Jacqueline with [facility] calls to verify donepezil prescription is wanted for 5 mg take 2 at bedtime. Per below, patient request because having difficulty swallowing. Jacqueline to fill prescription and cancel the 10 mg order. Kari Gonzalez RN * Telephone Encounter - Aretha Wade LPN - 10/30/2024 7:08 AM EST Patient comment: If possible, Please order 2 5 mg tablets by mouth daily. The 10 mg are difficult to swallow. Thanks! Requested Prescriptions Pending Prescriptions Disp Refills donepezil (ARICEPT) 5 mg tablet Sig: Take 2 tablets by mouth daily at bedtime. Date of last office visit in primary care: 10/18/2024 Date of next office visit in primary care: 2024 Please advise. Thank you. Aretha Wade LPN. documented in [facility] Telephone encounter Note * Telephone Encounter - Aretha Wade LPN - 10/30/2024 7:08 AM EST Patient comment: If possible, Please order 2 5 mg tablets by mouth daily. The 10 mg are difficult to swallow. Thanks! Requested Prescriptions Pending Prescriptions Disp Refills donepezil (ARICEPT) 5 mg tablet Sig: Take 2 tablets by mouth daily at bedtime. Date of last office visit in primary care: 10/18/2024 Date of next office visit in primary care: 2024 Please advise. Thank you. Aretha Wade LPN. [facility]01-27-2025 Telephone encounter Note* Telephone Encounter - Patrice Hartman RN - 10/22/2024 6:27 PM EST The patient has been identified by name and date of : Yes Caregiver verified no other encounters exist for this prescription request: Yes Caregiver confirmed with patient/requestor that no other refills are due, in the near future, with this provider at this time: Yes The last office visit in the department: 10/18/2024 Does the patient have a future office visit with this provider/department: Yes 10/26/2024 Requested Prescriptions Pending Prescriptions Disp Refills donepezil (ARICEPT) 10 mg tablet 90 tablet 1 Sig: Take 1 tablet by mouth daily at bedtime. Patrice Hartman RN October 22, 2024 6:27 PM [facility]01-27-2025 Miscellaneous Notes* Telephone Encounter - Patrice Hartman RN - 10/22/2024 6:27 PM EST The patient has been identified by name and date of : Yes Caregiver verified no other encounters exist for this prescription request: Yes Caregiver confirmed with patient/requestor that no other refills are due, in the near future, with this provider at this time: Yes The last office visit in the department: 10/18/2024 Does the patient have a future office visit with this provider/department: Yes 10/26/2024 Requested Prescriptions Pending Prescriptions Disp Refills donepezil (ARICEPT) 10 mg tablet 90 tablet 1 Sig: Take 1 tablet by mouth daily at bedtime. Patrice Hartman RN October 22, 2024 6:27 PM documented in [facility] encounter[facility] History of Present illness Narrative* Cherelle Benavides PA- C - 10/18/2024 1:03 PM EST Chief Complaint Patient presents with: Depression HPI Javier Bond is a 83 year old male who presents here today for Above Complaints.. Patient state patient is more subdued and not quite himself. At times he snaps at her over small things. Patient states he feels okay. Just hates being a bother/nuisance to his and people around him. Past medical history, appointments, medications, allergies reviewed. 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/24/2022 S/p removal 08/2022 Essential hypertension, benign Essential tremor 11/21/2023 Family history of malignant neoplasm of gastrointestinal tract GERD (gastroesophageal reflux disease) 03/25/2009 Hiatal hernia 06/09/2022 History of compression fracture of spine 11/05/2019 Hypercalciuria, idiopathic 02/11/2020 Hypertrophy of prostate without urinary obstruction and other lower urinary tract symptoms (LUTS) Ilioinguinal neuralgia of left side 09/27/2019 Internal hemorrhoids without mention of complication Iron deficiency anemia 07/23/[address] 10/04/2022 DPA: Peter Lumbar degenerative disc disease 09/14/2012 Lumbar radiculopathy 07/03/2020 Medicare annual wellness visit, subsequent 09/10/2021 Medicare Part B: Not able to find Last done: 09/10/2021 Memory deficits 11/21/202310/2023: w/u ok, patient declined med management Nephrolithiasis 07/04/2007 Neuropathy - (NOS) 08/30/2024 NCS: 08/2024 Oropharyngeal dysphagia 12/25/2020 Osteoporosis 01/28/2020 Other specified anemias 03/16/2022 Acute blood loss 11/2020 (post surgery) Pain in both hands 06/21/2024 Rheum factor+(05/2024) Peripheral edema 05/21/2022 Primary osteoarthritis of both first carpometacarpal joints 05/04/2018 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 09/09/2015 Rosacea 09/09/2015 S/P lumbar spinal fusion 12/15/2020 Sepsis due to Gram-negative organism with septic shock (HCC) 12/17/2020 Proteus mirabilis UTI Situational anxiety 06/27/2019 Situational depression 02/27/2021 Spondylosis of lumbar region without myelopathy or radiculopathy 03/10/2018 Thyroid nodule 12/03/[address] Zacarias Unstable gait 05/21/2021 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 05/11/2021 Previous Surgical History PAST SURGICAL HISTORY Procedure Laterality Date ARTHRP INTERCARPAL/CARP/MTCRPL JT INTERPOSITION Left 05/24/2018 Left thumb CMC arthroplasty with LRTI and MCP pinning of left thumb COLONOSCOPY FLX DX W/COLLJ SPEC WHEN PFRMD 07/17/08, 2012 COLONOSCOPY FLX DX W/COLLJ SPEC WHEN PFRMD [facility] 02/20/2021 stent removal EGD TRANSORAL BIOPSY SINGLE/MULTIPLE 12/26/2008 ESOPHAGOGASTRODUODENOSCOPY TRANSORAL DIAGNOSTIC 03/18/2020 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 PERIPHERAL NERVE BLOCK (MOD 59) Bilateral 11/01/2016, 03/28/2018 bilateral lumbar facet medial branch nerve block (l4-5, L5-S1) REMOVAL OF HEMORRHOID CLOT 06/2017 SKIN BIOPSY HX SPINAL FUSION,ANT,EA ADNL LEVEL 2001 TONSILLECTOMY HX Childhood TRANSURETHRAL ELEC-SURG PROSTATECTOM 01/14/2023 XCAPSL CTRC RMVL INSJ IO LENS PROSTH W/O ECP Bilateral 08/25/2016 Family History FAMILY HISTORY Problem Relation Age of Onset Cancer Mother lung Cancer Father colon Cancer Brother lymphoma Patient Allergies ALLERGIES Allergen Reactions Contrast Dye Hives Finacea [Azelaic Ac* Rash Bactrim [Sulfametho* Unknown Bextra [Valdecoxib] Unknown Cardura [Doxazosin * Unknown Ciprofloxacin Unknown Cytotec [Misoprosto* Unknown Fosamax [Alendronat* Vomiting heartburn, vomiting Gabapentin Mental Status Change Ketoconazole Unknown Levofloxacin Other: See Comments Pseudomonas Mobic [Meloxicam] Unknown Nitrofurantoin Other: See Comments Per , "he didn't feel well" - unsure of reaction Nsaids (Non-Steroid* Unknown GI UPSET Relafen [Nabumetone] Unknown Terbinafine GI Upset Current Medications Current Outpatient Medications on File Prior to Visit Medication Sig docusate sodium (COLACE) 50 mg capsule Take 50 mg by mouth two times a day. TRULANCE 3 mg tablet Take 3 mg by mouth once daily. lisinopril (ZESTRIL) 5 mg tablet Take 1 tablet by mouth once daily. ipratropium bromide (ATROVENT) 42 mcg (0.06 %) nasal spray Use 2 Sprays in the nose three times a day. memantine (NAMENDA) 5 mg tablet Take 1 tablet daily for 1 week, then increase to 1 tablet twice daily for 1 week, then increase to 1 tablet in the AM and 2 tablets in the PM for 1 week. When you complete the 5mg tablet titration then transition to the 10mg tablets (separate Rx). memantine (NAMENDA) 10 mg tablet Take 1 tab twice daily (after completing the 5mg titration Rx). traZODone (DESYREL) 100 mg tablet Take 1 tablet by mouth daily at bedtime. Methenamine Hippurate (HIPREX) 1 gram tablet Take 1 tablet by mouth two times a day. atorvastatin (LIPITOR) 10 mg tablet Take 1 tablet by mouth daily at bedtime. For cholesterol. furosemide (LASIX) 20 mg tablet Take 1 tablet by mouth once daily. ferrous sulfate 300 mg (60 mg iron)/5 mL syrup Take 5 mL by mouth once daily. Ascorbic Acid (VITAMIN C) 500 mg chew Take 1 tablet (500 mg) by mouth once daily. pantoprazole DR (PROTONIX) 40 mg tablet Take 1 tablet by mouth two times a day. dupilumab 300 mg/2 mL subcutaneous syringe ([employer]) Inject 2 mL subcutaneously every 4 weeks[address] PerDerm: Dr. Mariee donepezil (ARICEPT) 10 mg tablet Take 1 tablet by mouth daily at bedtime. hydroCHLOROthiazide 12.5 mg tablet Take 1 tablet by mouth once daily. Lactobacillus acidophilus (PROBIOTIC ACIDOPHILUS ORAL) Take 2 capsules by mouth once daily. d-mannose powd Take by mouth once daily. triamcinolone acetonide (KENALOG) 0.1 % cream Apply 1 application to affected area as directed. doxycycline 20 mg tablet Take 20 mg by mouth twice daily. MEDICAL SUPPLY KAFO for right lower extremity. acetaminophen (TYLENOL) 500 mg tablet Take 2 tablets by mouth every 8 hours as needed for Pain or Fever. aspirin 81 mg chewable tablet Take 1 tablet by mouth once daily. multivit-min/iron/folic acid/K (ADULTS MULTIVITAMIN ORAL) Take 1 tablet by mouth once daily. (Patient not taking: Reported on 10/16/2024) No current facility-administered medications on file prior to visit. Social History Social History Tobacco Use Smoking status: Former Current packs/day: 0.00 Types: Cigarettes Quit date: 06/24/1963 Years since quittin.3 Smokeless tobacco: Never Tobacco comments: quit in his 20's - smoked socially while in college Vaping Use Vaping status: Never Used Substance Use Topics Alcohol use: Yes Comment: 1-2 drinks in A MONTH Drug use: No Review of Symptoms REVIEW OF SYSTEMS See hpi EXAM: BP 110/80 (BP Site: Left Arm, BP Position: Sitting, BP Cuff Size: Regular Adult) Pulse 73 Temp 36.4 C (97.6 F) Resp 16 Wt 72.1 kg (159 lb) SpO2 100% BMI 22.18 kg/m General Appearance: Well appearing, alert, in no acute distress, well-hydrated, well nourished.. Health Maintenance List Advance Directive Discussion due on 09/26/2024 Diabetes Screening due on 06/07/2027 DTaP,Tdap,Td Vaccine(4 - Td or Tdap) due on 03/13/2028 Influenza Vaccine Completed RSV Vaccine Completed Shingrix Vaccine Completed Covid-19 Vaccine Completed Pneumococcal Vaccine: 50+ Completed Colorectal Cancer Screening Discontinued Data reviewed 03/01/2023 06/09/2023 10/18/2024 PHQ-9 Score 2 0 11 ASSESSMENT/PLAN: 1. Situational depression - ICD9: 309.0, ICD10: F43.21 (primary diagnosis) Discussed options Patient is reluctantly willing to try a low dose medication Recheck in 1 month 2. Dementia without behavioral disturbance (HCC) - ICD9: 294.20, ICD10: F03.90 Cherelle Benavides PA-C documented in [facility] encounter[facility] History of Present illness Narrative* Riaz Williamson - 10/16/2024 9:30 AM EST Javier Meza Ronda 1940 10/16/2024 HISTORY OF PRESENT ILLNESS: This is an 83- year old man, presenting today with his spouse for follow up of VANESSA. Pts spouse contributes majority of history today. He has been seen in our office previously for questionable MGUS which has since been ruled out. He initially presented with abnormal SPEP in 2022. Per Dr. Keys's previous note dated 03/18/2023: "The initial SPEP 12/02/2022 identified an atypical region of restricted mobility which may represent an unusual presentation of polyclonal immunoglobulins, but cannot rule out the presence of an low level Mprotein. The M protein concentration was 0.00. The subsequent immunofixation reported a poorly defined region of restricted mobility in the lambda marisa. Pattern is less well-defined or fainter than typically seen in monoclonal gammopathy" No further follow up indicated for this at this time as repeat lab work was stable. He has received IV iron in the past for iron deficiency. Currently taking PO iron liquid daily so significant change in iron studies. Chronic constipation taking Trulance weekly. Rx from Dr. Barnhart for constipation. Pt note pretty severe at times. He also takes 40 mg protonix BID. He denies new or worsening SOB, CP. No recent illnesses. No fevers. He notes that he just feels cold all the time. Sits under heated blanket in front of heat register all day. Spouse states that "he is constantly shivering" . TSH normal. No unexplained bleeding or bruising. No changes in bowel or bladder habits. Appetite is good. REVIEW OF SYSTEMS: All systems reviewed on 10/17/2024 with pertinent positives and negatives as outlined in the interval history. PHYSICAL EXAM: BP 112/61 Pulse 66 Temp 36.2 C (97.1 F) (Temporal) Ht 180.3 cm (5' 11") Wt 73.9 kg (163 lb) SpO2 94% BMI 22.73 kg/m2 Body mass index is 22.73 kg/m . Estimated body surface area is 1.92 meters squaredas calculated from the following: Height as of this encounter: 180.3 cm (5' 11"). Weight as of this encounter: 73.9 kg (163 lb). ECO- Restricted in physically strenuous activity. Carries out light duty. Physical Exam Vitals reviewed. Constitutional: Appearance: Normal appearance. HENT: Head: Normocephalic and atraumatic. Nose: Nose normal. Eyes: Conjunctiva/sclera: Conjunctivae normal. Cardiovascular: Rate and Rhythm: Normal rate and regular rhythm. Pulmonary: Effort: Pulmonary effort is normal. No respiratory distress. Abdominal: General: There is no distension. Palpations: Abdomen is soft. Tenderness: There is no abdominal tenderness. Musculoskeletal: Cervical back: Normal range of motion. Right lower leg: No edema. Left lower leg: No edema. Skin: Coloration: Skin is pale. Skin is not jaundiced. Findings: No bruising or rash. Neurological: General: No focal deficit present. Mental Status: He is alert. Mental status is at baseline. Psychiatric: Mood and Affect: Mood normal. LABS: Lab Results Component Value Date WBC 5.65 10/10/2024 HB 11.8 (L) 10/10/2024 MCV 96.4 10/10/2024 PLT 165 10/10/2024 Lab Results Component Value Date NA 138 06/07/2024 K 4.4 06/07/2024 CO2 26 06/07/2024 BUN 23 06/07/2024 CREAT 0.99 06/07/2024 TBILI 0.6 11/22/2023 TPROT 6.7 08/30/2024 ALB 4.2 11/22/2023 ALKPHOS 76 11/22/2023 ALT 13 11/22/2023 AST 17 11/22/2023 Latest Reference Range & Units 07/04/24 16:48 08/07/24 16:52 08/30/24 14:12 10/10/24 09:10 Ferritin 30.3 - 565.7 ng/mL 39.3 Iron 41 - 186 ug/dL 14 (L) 39 (L) 154 33 (L) TIBC 232 - 386 ug/dL 391 (H) 381 363 340 Transferrin Saturation 15.0 - 57.0 % 3.6 (L) 10.2 (L) 42.4 9.7 (L) (L): Data is abnormally low (H): Data is abnormally high IMPRESSION: Javier Bond is a 83 year old male presents as a referral by his primary care for further management of VANESSA Iron deficiency anemia - reviewed potential causes and treatments for anemia, including malabsorption, bleeding, CKD, liver dysfunction, and bone marrow disorders. Pt and spouse acknowledged. Pt has required IV iron in thepast. Last dose was 2022 - H/H is overall stable. - has had GI workup, last colonoscopy was in November 2023, follows with Dr. Barnhart. (No records currently available) - taking PO liquid iron daily, does not appear to be absorbing, likely due to PPI use. - ok to discontinue as iron also likely contributing to severe constipation - reasonable to discontinue ASA 81mg PLAN: - long hx of VANESSA, last colonoscopy in November - last ferritin indicative of iron deficiency drawn in 06/2024 - iron studies have remained low, despite consistent PO iron. - OK to discontinue PO iron as he does not appear to absorb this and likely contributing to severe constipation. Pts spouse acknowledged - continue to follow CBC, ferritin, and iron studies. - will plan for IV iron sucrose 200mg x5 - would recommend IV iron for ferritin under 50 - repeat cbc, ferritin, iron studies in about 8 weeks following last IV iron dose. Plan to check [id number] thereafter. Riaz Williamson APRN.TIME SIGNAL WIRER I spent a total of 30 minutes on the date of the service which included preparing to see the patient, [id number] patient care, completing clinical documentation, obtaining and/or reviewing separately obtained history, performing a medically appropriate examination, and ordering medications, tests, or procedures. Portions of this note including HPI, ROS, impression/plan may have been copied forward as to provide important historical information essential in contributing to medical decision making. Documentation has been reviewed and edited as necessary to support clinical decision making for today's visit and to reflect my own independent evaluation of this patient. documented in this encounterCh[facility]25 [facility]01-[facility] Telephone encounter Note* Telephone Encounter - Nilda Mar - 10/12/2024 8:52 AM EST Called patient and left a vm to return our call [facility]01-17-2025 Miscellaneous Notes* Telephone Encounter - Nilda Mar - 10/12/2024 8:52 AM EST Called patient and left a vm to return our call * Telephone Encounter - Belem Umana LPN - 10/12/2024 8:49 AM EST PSS- ok to schedule with Riaz for VANESSA. 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 Riaz Williamson APRN.TIME SIGNAL WIRER * Telephone Encounter - Belem Umana LPN - 10/11/2024 3:24 PM EST VANESSA. Riaz- ok to schedule with you? Belem Umana LPN * Telephone Encounter - Ronan Jean LPN - 10/11/2024 2:41 PM EST Spoke with pt's and advised her of pcp's message. is aware this TE will be forwarded to Hematology to review and that she will be contacted regarding an appointment. Ronan Jean LPN * Telephone Encounter - Ronan Jean LPN - 10/11/2024 1:50 PM EST Attempted to contact pt's . Line is busy. Will need to try again later. Ronan Jean LPN * Telephone Encounter - Francisco Bahena MD - 10/11/2024 1:23 PM EST Let know the discrepancy in the dosing maybe because with the dose I wrote for and what the pharmacy had available they had to adjust how much you gave him so they would be the same. I have placed an order to see hematology to be considered for iron infusion Tx. * Telephone Encounter - Ronan Jean LPN - 10/11/2024 1:04 PM EST Spoke with pt's Peter and reviewed results with her. She verbalizes understanding. She states he has been getting his iron daily consistently. She checked the bottle and it shows dosage as 6.8 mL daily. She states she tries to be as accurate as possible but pt occasionally get 7 mL. She advises that she does not ever remember him being prescribed 5 mL Ronan Jean LPN * Telephone Encounter - Francisco Bahena MD - 10/11/2024 12:51 PM EST Let Javier's (Peter) know the thyroid labs were ok. His Hg is still low at 11.8 but was 11.6.his iron studies are low again. I have he is to take 5 ml of liquid Iron a day, has he baljinder doing this consistently? If he has then the next step is to see hematology for iron infusion due to failed oral Tx. documented in this encounterCh[facility]01-17-2025 Telephone encounter Note * Telephone Encounter - Belem Umana LPN - 10/12/2024 8:49 AM EST PSS- ok to schedule with Riaz for VANESSA. 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 Riaz Williamson APRN.TIME SIGNAL WIRER [facility] Work Phone: [phone]) 326-606401-16-2025 Telephone encounter Note* Telephone Encounter - Belem Umana LPN - 10/11/2024 3:24 PM EST VANESSA. Riaz- ok to schedule with you? Belem Umana LPN [facility]01-16-2025 Telephone encounter Note* Telephone Encounter - Ronan Jean LPN - 10/11/2024 2:41 PM EST Spoke with pt's and advised her of pcp's message. is aware this TE will be forwarded to Hematology to review and that she will be contacted regarding an appointment. Ronan Jean LPN [facility]01-16-2025 Telephone encounter Note* Telephone Encounter - Ronan Jean LPN - 10/11/2024 1:50 PM EST Attempted to contact pt's . Line is busy. Will need to try again later. Ronan Jean LPN [facility]01-16-2025 Telephone encounter Note* Telephone Encounter - Francisco Bahena MD - 10/11/2024 1:23 PM EST Let know the discrepancy in the dosing maybe because with the dose I wrote for and what the pharmacy had available they had to adjust how much you gave him so they would be the same. I have placed an order to see hematology to be considered for iron infusion Tx. [facility]01-16-[facility] Telephone encounter Note* Telephone Encounter - Ronan Jean LPN - 10/11/2024 1:04 PM EST Spoke with pt's Peter and reviewed results with her. She verbalizes understanding. She states he has been getting his iron daily consistently. She checked the bottle and it shows dosage as 6.8 mL daily. She states she tries to be as accurate as possible but pt occasionally get 7 mL. She advises that she does not ever remember him being prescribed 5 mL Ronan Jean LPN [facility]01-16-2025 Telephone encounter Note* Telephone Encounter - Francisco Bahena MD - 10/11/2024 12:51 PM EST Let Javier's (Peter) know the thyroid labs were ok. His Hg is still low at 11.8 but was 11.6.his iron studies are low again. I have he is to take 5 ml of liquid Iron a day, has he baljinder doing this consistently? If he has then the next step is to see hematology for iron infusion due to failed oral Tx. [facility] Telephone encounter Note* Telephone Encounter - Melisa Clemons RN - 10/11/2024 9:19 AM EST Spoke with patient and , and given provider's message below with verbalized understanding. Bothagreeable, and scheduled appt in 2 weeks with pcp, but plan to cancel if improvement by then. [facility] Miscellaneous Notes* Telephone Encounter - Melisa Clemons RN - 10/11/2024 9:19 AM EST Spoke with patient and , and given provider's message below with verbalized understanding. Bothagreeable, and scheduled appt in 2 weeks with pcp, but plan to cancel if improvement by then. * Telephone Encounter - Francisco Bahena MD - 10/10/2024 12:20 PM EST Let know the x-rays of the ribs showed no fractures of abnormalities. If this pain persists and nit improving over the next 2 weeks I want to re-see him. documented in this [facility] Telephone encounter Note * Telephone Encounter - Francisco Bahena MD - 10/10/2024 12:20 PM EST Let know the x-rays of the ribs showed no fractures of abnormalities. If this pain persists and nit improving over the next 2 weeks I want to re-see him. [facility] History of Present illness Narrative* Sharon Maria, RT(R) - 10/10/2024 9:30 AM EST Radiology Service Progress Note PATIENT NAME: Javier Bond DATE OF SERVICE: October 10, 2024 TIME: 9:10 AM PATIENT IDENTITY VERIFICATION COMPLETED USING TWO (2) IDENTIFIERS: Name and Date of confirmedby patient verbally. FALL SCREENING: Has the patient had 2 falls in the last year or 1 fall with injury or currently using an Ambulatory Assistive Device (Walker, Cane, Wheelchair, Crutches, etc.)? Yes, Patient High Riskfor Falls What interventions were put in place to prevent falls during this visit? Offered Assistance with Transfers/Clothing and Instructed Patient to Remain Seated (Not on Exam Table) Until Exam PATIENT GENDER DATA: Assigned male at PATIENT RELEVANT IMPLANT DATA REVIEWED: Not Applicable PATIENT PRESENTS WITH AN IMPLANTABLE OR ATTACHED BLOW PIT OPERATOR: No RADIOLOGY DEPARTMENT: General X-ray: Exam(s) Completed: Rib X-Ray: Left PERIPHERAL IV DATA: Not applicable SIGNED BY: RT Ryder(R) October 10, 2024 9:10 AM documented in this encounterCh[facility] History of Present illness Narrative* Francisco Bahena MD - 10/10/2024 8:20 AM EST Chief Complaint Patient presents with: Fever: Patient states he has had chills for several months, no fever, has been on iron for the lastseveral months with no improvement in symptoms HPI Javier Bond is a 83 year old male who presents here today for cold chills. No significant increased fatigue. He has been c/o pain in the left lateral posterior ribs in the past few days. No known trauma. Has not had a cough. Hurts to take a deep breath. Patient typically mentions being cold at most appts and does not seem to be new but maybe worse since it has been much colder in the past 1-2 weeks with temps in the teens to 20's. Patient's question, why am I so cold even while taking iron. Patient with hx of HTN, GERD, BPH, chronic back pain, Depression, unstable gait, osteoporosis, and those as below Patient sees Neurology - Dr. Yu for dementia Patient sees Dr. Cabrera - ENT - last visit 08/2024 Patient sees Urology Past medical history, appointments, medications, allergies reviewed. 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/24/2022 S/p removal 08/2022 Essential hypertension, benign Essential tremor 11/21/2023 Family history of malignant neoplasm of gastrointestinal tract GERD (gastroesophageal reflux disease) 03/25/2009 Hiatal hernia 06/09/2022 History of compression fracture of spine 11/05/2019 Hypercalciuria, idiopathic 02/11/2020 Hypertrophy of prostate without urinary obstruction and other lower urinary tract symptoms (LUTS) Ilioinguinal neuralgia of left side 09/27/2019 Internal hemorrhoids without mention of complication Iron deficiency anemia 07/23/[address] 10/04/2022 DPA: Peter Lumbar degenerative disc disease 09/14/2012 Lumbar radiculopathy 07/03/2020 Medicare annual wellness visit, subsequent 09/10/2021 Medicare Part B: Not able to find Last done: 09/10/2021 Memory deficits 11/21/202310/2023: w/u ok, patient declined med management Nephrolithiasis 07/04/2007 Neuropathy - (NOS) 08/30/2024 NCS: 08/2024 Oropharyngeal dysphagia 12/25/2020 Osteoporosis 01/28/2020 Other specified anemias 03/16/2022 Acute blood loss 11/2020 (post surgery) Pain in both hands 06/21/2024 Rheum factor+(05/2024) Peripheral edema 05/21/2022 Primary osteoarthritis of both first carpometacarpal joints 05/04/2018 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 09/09/2015 Rosacea 09/09/2015 S/P lumbar spinal fusion 12/15/2020 Sepsis due to Gram-negative organism with septic shock (HCC) 12/17/2020 Proteus mirabilis UTI Situational anxiety 06/27/2019 Situational depression 02/27/2021 Spondylosis of lumbar region without myelopathy or radiculopathy 03/10/2018 Thyroid nodule 12/03/[address] Zacarias Unstable gait 05/21/2021 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 05/11/2021 Previous Surgical History PAST SURGICAL HISTORY Procedure Laterality Date ARTHRP INTERPOS INTERCARPAL/METACARPAL JOINTS Left 05/24/2018 Left thumb CMC arthroplasty with LRTI and MCP pinning of left thumb COLONOSCOPY FLX DX W/COLLJ SPEC WHEN PFRMD 07/17/082012 COLONOSCOPY FLX DX W/COLLJ SPEC WHEN PFRMD [facility]28[facility].PANENDO 02/20/2021 stent removal EGD TRANSORAL BIOPSY SINGLE/MULTIPLE 12/26/2008 ESOPHAGOGASTRODUODENOSCOPY TRANSORAL DIAGNOSTIC 03/18/2020 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 PERIPHERAL NERVE BLOCK (MOD 59) Bilateral 11/01/2016, 03/28/2018 bilateral lumbar facet medial branch nerve block (l4-5, L5-S1) REMOVAL OF HEMORRHOID CLOT 06/2017 SKIN BIOPSY HX SPINAL FUSION,ANT,EA ADNL LEVEL 2001 TONSILLECTOMY HX Childhood TRANSURETHRAL ELEC-SURG PROSTATECTOM 01/14/2023 XCAPSL CTRC RMVL INSJ IO LENS PROSTH W/O ECP Bilateral 08/25/2016 Family History FAMILY HISTORY Problem Relation Age of Onset Cancer Mother lung Cancer Father colon Cancer Brother lymphoma Patient Allergies ALLERGIES Allergen Reactions Contrast Dye Hives Finacea [Azelaic Ac* Rash Bactrim [Sulfametho* Unknown Bextra [Valdecoxib] Unknown Cardura [Doxazosin * Unknown Ciprofloxacin Unknown Cytotec [Misoprosto* Unknown Fosamax [Alendronat* Vomiting heartburn, vomiting Gabapentin Mental Status Change Ketoconazole Unknown Levofloxacin Other: See Comments Pseudomonas Mobic [Meloxicam] Unknown Nitrofurantoin Other: See Comments Per , "he didn't feel well" - unsure of reaction Nsaids (Non-Steroid* Unknown GI UPSET Relafen [Nabumetone] Unknown Terbinafine GI Upset Current Medications Current Outpatient Medications on File Prior to Visit Medication Sig memantine (NAMENDA) 5 mg tablet Take 1 tablet daily for 1 week, then increase to 1 tablet twice daily for 1 week, then increase to 1 tablet in the AM and 2 tablets in the PM for 1 week. When you complete the 5mg tablet titration then transition to the 10mg tablets (separate Rx). memantine (NAMENDA) 10 mg tablet Take 1 tab twice daily (after completing the 5mg titration Rx). traZODone (DESYREL) 100 mg tablet Take 1 tablet by mouth daily at bedtime. Methenamine Hippurate (HIPREX) 1 gram tablet Take 1 tablet by mouth two times a day. atorvastatin (LIPITOR) 10 mg tablet Take 1 tablet by mouth daily at bedtime. For cholesterol. furosemide (LASIX) 20 mg tablet Take 1 tablet by mouth once daily. ferrous sulfate 300 mg (60 mg iron)/5 mL syrup Take 5 mL by mouth once daily. Ascorbic Acid (VITAMIN C) 500 mg chew Take 1 tablet (500 mg) by mouth once daily. predniSONE (DELTASONE) 50 mg Take 1 tablet [address], 7 hours prior and [address] (PROTONIX) 40 mg tablet Take 1 tablet by mouth two times a day. dupilumab 300 mg/2 mL subcutaneous syringe ([employer]) Inject 2 mL subcutaneously every 4 weeks[address] PerDerm: Dr. Mariee cetirizine (ZYRTEC) 10 mg tablet Take 1 tablet by mouth once daily. predniSONE (DELTASONE) 50 mg Give 1 tablet 13 hours, 7 hours and [address] diphenhydrAMINE (BENADRYL) 25 mg tablet Take (2) tablets [address] donepezil (ARICEPT) 10 mg tablet Take 1 tablet by mouth daily at bedtime. hydroCHLOROthiazide 12.5 mg tablet Take 1 tablet by mouth once daily. Lactobacillus acidophilus (PROBIOTIC ACIDOPHILUS ORAL) Take 2 capsules by mouth once daily. lisinopril (ZESTRIL) 5 mg tablet Take 1 tablet by mouth once daily. d-mannose powd Take by mouth once daily. triamcinolone acetonide (KENALOG) 0.1 % cream Apply 1 application to affected area as directed. doxycycline 20 mg tablet Take 20 mg by mouth twice daily. multivit-min/iron/folic acid/K (ADULTS MULTIVITAMIN ORAL) Take 1 tablet by mouth once daily. MEDICAL SUPPLY KA for right lower extremity. acetaminophen (TYLENOL) 500 mg tablet Take 2 tablets by mouth every 8 hours as needed for Pain or Fever. aspirin 81 mg chewable tablet Take 1 tablet by mouth once daily. No current facility-administered medications on file prior to visit. Social History Social History Tobacco Use Smoking status: Former Current packs/day: 0.00 Types: Cigarettes Quit date: 06/24/1963 Years since quittin.3 Smokeless tobacco: Never Tobacco comments: quit in his 20's - smoked socially while in college Vaping Use Vaping status: Never Used Substance Use Topics Alcohol use: Yes Comment: 1-2 drinks in A MONTH Drug use: No Review of Symptoms REVIEW OF SYSTEMS See HPI EXAM: BP 118/60 (BP Site: Left Arm, BP Position: Sitting) Pulse 60 Temp 36.6 C (97.8 F) Resp 16 Wt 72.1 kg (159 lb) SpO2 100% BMI 21.27 kg/m Last 6 Encounter Wt Readings: Date: Wt: 10/10/2024 72.1 kg (159 lb) 09/21/2024 70.5 kg (155 lb 6.4 oz) 06/26/2024 72.1 kg (159 lb) 06/25/2024 72.1 kg (159 lb) 06/07/2024 71.7 kg (158 lb) 02/23/2024 73.5 kg (162 lb) General Appearance: Well appearing, alert, in no acute distress, well-hydrated, well nourished. andThin. Neck: Supple, no adenopathy; thyroid symmetric, normal size, no bruits. Lungs: Lungs clear to auscultation. No wheezing, rhonchi, rales.. Heart: RRR without murmur, gallop, or rubs. No ectopy. Abdomen: Normal abdominal exam, Abdomen soft, non-tender. Bowel sounds normal. No masses, organomegaly. Musculoskeletal: there is tenderness with palpation to the left lateral posterior ribs. No step offs and no visible bruising. . Health Maintenance List Advance Directive Discussion due on 09/26/2024 Diabetes Screening due on 06/07/2027 DTaP,Tdap,Td Vaccine(4 - Td or Tdap) due on 03/13/2028 Influenza Vaccine Completed RSV Vaccine Completed Shingrix Vaccine Completed Covid-19 Vaccine Completed Pneumococcal Vaccine: 50+ Completed Colorectal Cancer Screening Discontinued Data reviewed Latest Ref Rng 06/07/2024 07/04/2024 08/07/2024 08/30/2024 WBC 3.70 - 11.00 k/uL 4.42 5.09 RBC 4.20 - 6.00 m/uL 3.77 (L) 3.86 (L) Hemoglobin 13.0 - 17.0 g/dL 11.2 (L) 11.6 (L) Hematocrit 39.0 - 51.0 % 35.7 (L) 37.7 (L) MCV 80.0 - 100.0 fL 94.7 97.7 MCH 26.0 - 34.0 pg 29.7 30.1 MCHC 30.5 - 36.0 g/dL 31.4 30.8 RDW-CV 11.5 - 15.0 % 13.0 14.3 Platelet Count 150 - 400 k/uL 191 183 MPV 9.0 - 12.7 fL 9.8 9.5 Neut% % 45.5 45.6 Abs Neut (ANC) 1.45 - 7.50 k/uL 2.01 2.32 Lymph% % 43.0 43.6 Abs Lymph 1.00 - 4.00 k/uL 1.90 2.22 [place]% % 9.5 8.8 Abs [place] <0.87 k/uL 0.42 0.45 Eosin% % 1.1 1.2 Abs Eosin <0.46 k/uL 0.05 0.06 Baso% % 0.9 0.6 Abs Baso <0.11 k/uL 0.04 0.03 Immature Gran % % 0.0 0.2 IMMATURE GRANS (ABS) <0.10 k/uL <0.03 <0.03 NRBC /100 WBC 0.0 0.0 Absolute nRBC <0.01 k/uL <0.01 <0.01 DTYPE Auto Auto Iron 41 - 186 ug/dL 14 (L) 39 (L) 154 TIBC 232 - 386 ug/dL 391 (H) 381 363 Transferrin Saturation 15.0 - 57.0 % 3.6 (L) 10.2 (L) 42.4 Also looked up several of his meds he is taking and no mention of increased feeling of being cold. A/P ASSESSMENT/PLAN: 1. Cold intolerance - ICD9: 780.99, ICD10: R68.89 (primary diagnosis) Check - IRON AND TIBC - THYROID STIMULATING HORMONE - COMPLETE BLOOD COUNT AND DIFFERENTIAL - T4 FREE/FREE THYROXINE Did discusses wit patient that could just be due to age related changes with decreased fat under the skin allowing capillaries to e closer to the surface and to get cold faster. Advised on layering clothes. 2. Rib pain on left side - ICD9: 786.50, ICD10: R07.81 Check - XR RIBS/CHEST 3V AP RIB/OBLS/CXR LEFT: if positive for fracture will send in weeks worth of tramadol 50 mg TID prn. 3. Iron deficiency anemia, unspecified iron deficiency anemia type - ICD9: 280.9, ICD10: D50.9 Check - IRON AND TIBC - COMPLETE BLOOD COUNT AND DIFFERENTIAL Patient wants to be evaluated for depression. F/u in 1-2 weeks to eval for depression. I spent a total of 32 minutes on the date of the service which included preparing to see the patient, [id number] patient care, completing clinical documentation, performing a medically appropriate examination, counseling and educating the patient/family/caregiver and ordering medications, tests, or procedures. Francisco Bahena MD documented in this encounterCh[facility]25 Note[facility] Telephone encounter Note* Telephone Encounter - Malissa Xiao OCCA - 10/10/2024 7:37 AM EST Prescription Refill Information The patient has been identified by name and date of : Yes Caregiver verified no other encounters exist for this prescription request: Yes Caregiver confirmed with patient/requestor that no other refills are due, in the near future, with this provider at this time: Yes The last office visit in the department: 06/25/2024 Does the patient have a future office visit with this provider/department: Yes, 10/10/2024 Requested Prescriptions Pending Prescriptions Disp Refills lisinopril (ZESTRIL) 5 mg tablet 90 tablet 1 Sig: Take 1 tablet by mouth once daily. JIMMY Blair October 10, 2024 7:38 AM [facility] Miscellaneous Notes* Telephone Encounter - Malissa Xiao OCCA - 10/10/2024 7:37 AM EST Prescription Refill Information The patient has been identified by name and date of : Yes Caregiver verified no other encounters exist for this prescription request: Yes Caregiver confirmed with patient/requestor that no other refills are due, in the near future, with this provider at this time: Yes The last office visit in the department: 06/25/2024 Does the patient have a future office visit with this provider/department: Yes, 10/10/2024 Requested Prescriptions Pending Prescriptions Disp Refills lisinopril (ZESTRIL) 5 mg tablet 90 tablet 1 Sig: Take 1 tablet by mouth once daily. JIMMY Blair October 10, 2024 7:38 AM documented in this encounterCh[facility]12-31-2024 NoteHNO ID: [id number] Author: RONAN JEAN LPN Service: ? Author Type: LICENSED NURSE Type: Progress Notes Filed: 09/25/2024 12:22 Note Text: Scan on 09/25/2024 11:14 AM by ProviderLuz Maria PA-C: Consultation - PT/OT/SpeechAultman Hospital12-31-2024 History of Present illness Narrative* Ronan Jean LPN - 09/25/2024 12:21 PM EST Scan on 09/25/2024 11:14 AM by Provider, JULIANN LoeraC: Consultation - PT/OT/Speech documented in this encounterCh[facility]12-27-2024 NoteA[facility]12-27-2024 History of Present illness Narrative* Quinten Yu Jr., MD - 09/21/2024 3:36 PM EST ESTABLISHED PATIENT VISIT CHIEF COMPLAINT: Established patient HISTORY OF PRESENT ILLNESS: Javier Bond is a 83 year old male, BMI 20.79 kg/m2 with a PMH significant for and per note of Melisa FERGUSON who saw patient on 06/26/24: 1. Dementia without behavioral disturbance (HCC) - ICD9: 294.20, ICD10: F03.90 Patient with 4 years of progressive memory loss, short-term. MRI in November showed some central atrophy, specifically to the hippocampus concerning for neurodegenerative disease. [place] today was 20/30, patient no longer driving at home, lives in a split-level house with his doing well. Concern today was nightmares, was put on Aricept a few months ago, nightmares started around this time. Takes Aricept at night, discussed taking it in the morning and patient is amenable. Also on trazodone and seems to help with his nightmares as well. Did try going up to 10 mg of Aricept but did not toleratethis due to significant diarrhea. Did have 1 fall in the last month but this was mechanical, was trying to walk up a hill with his rollator and the wheel caught causing him to trip and fall. No syncope or significant lightheadedness. Patient does have a few parkinsonism features including some bradykinesia on the left upper and lower extremity, deferred strength testing as patient is reporting pain diffusely throughout his body. No rigidity but does have slight intention tremor on exam, worse in the right upper extremity than left. No hallucinations, delusions. Does have some agitation but nophysical aggression. Sleeping well, very physically and cognitively active. Did discuss further testing with neuropsychological testing referral to brain health but patient deferring at this time. Encouraged conservative therapies, patient deferring any medications at this time. Patient already scheduled to follow-up with Dr. Yu and due to this is appropriate for further evaluation of possibleparkinsonism. Note that I have never seen patient before. Patient with memory issues stating "I can't remember what they are". feels symptoms started about 4 years ago when he was in the hospital for sepsis -- occurred following 3 level fusion of lumbar spine per . Supposedly was delirious and hallucinating while in the hospital. Then on discharge was transitioned to the [facility] in [place] for 1 month before returning home. Patient states that he is asking the same question 3-4 times per day. Patient feels symptoms getting worse. He is currently on Aricept 10mg daily. He did have nightmares on higher dose of Aricept perwife but no RBD symptoms. No family history of cognitive issues. Has not driven since in the hospital. Urgency but no loss of bladder control. Able to walk in good weather with use of a walker. States walking was fine prior to surgery. MRI not necessarily suggestive of hydrocephalus. MRI brain on 11/25/23 per rad report: Acute Change: There is no evidence of restricted diffusion to suggest an acute infarct. Hemorrhage: Prior microhemorrhage in the right occipital lobe.. Mass Lesion/ Mass Effect: No evidence of an intracranial mass or extra-axial fluid collection. No significant mass effect. Chronic Change: Patchy region of gliosis in the right parietal lobe, possibly remote insult. Scattered patchy areas of increased T2 and FLAIR signal are present in the supratentorial white matter which is a nonspecific finding but likely represents mild chronic microvascular ischemia. Parenchyma: There is mild to moderate central predominant volume loss. Scattered dilatated perivascular spaces. Ventricles: Ventriculomegaly corresponds to the degree of parenchymal volume loss. Small cavum septum lucidum. No issues with handwriting. No tremors at rest (at times with posture or action such as holding cupof coffee). Patient denies issues with fine motor tasks. No loss of sense of smell. No falls. Mood fluctuates day by day Sleep is good. MODIFIED MOCA: Immediate recall: 4/5, 55 Number repeat: 2/2 Sentence repeat: 2 Serial 7s: 11/26 Abstract: 2 Namin/3 Orientation: 6 A tap: 09/26 Delayed recall: 05 (/ with cues) Cube copy: 0 Clock drawin/3 ([place] [employer] correct only) Numbers wrong; no hands REVIEW OF SYSTEMS GENERAL:No weight loss, malaise or fevers. HEENT:Negative for frequent or significant headaches, No changes in hearing or vision, no nose bleeds or other nasal problems NECK:Negative for lumps, goiter, pain and significant neck swelling RESPIRATORY: Negative for cough, wheezing or shortness of breath. CARDIOVASCULAR: Negative for chest pain, leg swelling or palpitations. GASTROINTESTINAL: Negative for abdominal discomfort, blood in stools or black stools or change in bowel habits GENITOURINARY: No history of dysuria, frequency or incontinence MUSCULOSKELETAL: Negative for joint pain or swelling, back pain or muscle pain. NEUROLOGIC:Negative for focal numbness or weakness, headaches and dizziness or syncope, vision changes, speech/languag changes - EXCEPT that as per HPI above. SKIN:Negative for lesions, rash, and itching. PSYCHIATRIC: See HPI. No SI or HI. LAB/IMAGING: Those performed since patient's last visit have been reviewed. WBC (k/uL) Date Value 08/30/2024 5.09 RBC (m/uL) Date Value 08/30/2024 3.86 (L) Hemoglobin (g/dL) Date Value 08/30/2024 11.6 (L) Hematocrit (%) Date Value 08/30/2024 37.7 (L) MCV (fL) Date Value 08/30/2024 97.7 MCH (pg) Date Value 08/30/2024 30.1 MCHC (g/dL) Date Value 08/30/2024 30.8 RDW-CV (%) Date Value 08/30/2024 14.3 Platelet Count (k/uL) Date Value 08/30/2024 183 MPV (fL) Date Value 08/30/2024 9.5 Glucose (mg/dL) Date Value 06/07/2024 101 (H) BUN (mg/dL) Date Value 06/07/2024 23 Creatinine (mg/dL) Date Value 06/07/2024 0.99 Sodium (mmol/L) Date Value 06/07/2024 138 Potassium (mmol/L) Date Value 06/07/2024 4.4 Chloride (mmol/L) Date Value 06/07/2024 101 CO2 (mmol/L) Date Value 06/07/2024 26 Protein, Total (g/dL) Date Value 08/30/2024 6.7 Albumin (g/dL) Date Value 11/22/2023 4.2 Calcium, Total (mg/dL) Date Value 06/07/2024 9.7 Alkaline Phosphatase (U/L) Date Value 11/22/2023 76 Bilirubin, Total (mg/dL) Date Value 11/22/2023 0.6 AST (U/L) Date Value 11/22/2023 17 ALT (U/L) Date Value 11/22/2023 13 MANOLO (no units) Date Value 06/15/2024 Negative Rheumatoid Factor (IU/mL) Date Value 06/15/2024 84 (H) Hep C Antibody IA (no units) Date Value 10/10/2021 Negative TSH Date Value Ref Range Status 11/22/2023 2.320 0.270 - 4.200 mIU/L Final Vitamin B12 Date Value Ref Range Status 11/22/2023 738 232 - 1,245 pg/mL Final MEDICATIONS: traZODone (DESYREL) 100 mg tablet Take 1 tablet by mouth daily at bedtime. Methenamine Hippurate (HIPREX) 1 gram tablet Take 1 tablet by mouth two times a day. atorvastatin (LIPITOR) 10 mg tablet Take 1 tablet by mouth daily at bedtime. For cholesterol. furosemide (LASIX) 20 mg tablet Take 1 tablet by mouth once daily. ferrous sulfate 300 mg (60 mg iron)/5 mL syrup Take 5 mL by mouth once daily. Ascorbic Acid (VITAMIN C) 500 mg chew Take 1 tablet (500 mg) by mouth once daily. pantoprazole DR (PROTONIX) 40 mg tablet Take 1 tablet by mouth two times a day. dupilumab 300 mg/2 mL subcutaneous syringe ([employer]) Inject 2 mL subcutaneously every 4 weeks. PerDerm: Dr. Mariee cetirizine (ZYRTEC) 10 mg tablet Take 1 tablet by mouth once daily. donepezil (ARICEPT) 10 mg tablet Take 1 tablet by mouth daily at bedtime. hydroCHLOROthiazide 12.5 mg tablet Take 1 tablet by mouth once daily. Lactobacillus acidophilus (PROBIOTIC ACIDOPHILUS ORAL) Take 2 capsules by mouth once daily. lisinopril (ZESTRIL) 5 mg tablet Take 1 tablet by mouth once daily. d-mannose powd Take by mouth once daily. triamcinolone acetonide ([employer]) 0.1 % cream Apply 1 application to affected area as directed. doxycycline 20 mg tablet Take 20 mg by mouth twice daily. multivit-min/iron/folic acid/K (ADULTS MULTIVITAMIN ORAL) Take 1 tablet by mouth once daily. MEDICAL SUPPLY KA for right lower extremity. acetaminophen (TYLENOL) 500 mg tablet Take 2 tablets by mouth every 8 hours as needed for Pain or Fever. aspirin 81 mg chewable tablet Take 1 tablet by mouth once daily. 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/24/2022 S/p removal 08/2022 Essential hypertension, benign Essential tremor 11/21/2023 Family history of malignant neoplasm of gastrointestinal tract GERD (gastroesophageal reflux disease) 03/25/2009 Hiatal hernia 06/09/2022 History of compression fracture of spine 11/05/2019 Hypercalciuria, idiopathic 02/11/2020 Hypertrophy of prostate without urinary obstruction and other lower urinary tract symptoms (LUTS) Ilioinguinal neuralgia of left side 09/27/2019 Internal hemorrhoids without mention of complication Iron deficiency anemia 07/23/[address] 10/04/2022 DPA: Peter Lumbar degenerative disc disease 09/14/2012 Lumbar radiculopathy 07/03/2020 Medicare annual wellness visit, subsequent 09/10/2021 Medicare Part B: Not able to find Last done: 09/10/2021 Memory deficits 11/21/202310/2023: w/u ok, patient declined med management Nephrolithiasis 07/04/2007 Neuropathy - (NOS) 08/30/2024 NCS: 08/2024 Oropharyngeal dysphagia 12/25/2020 Osteoporosis 01/28/2020 Other specified anemias 03/16/2022 Acute blood loss 11/2020 (post surgery) Pain in both hands 06/21/2024 Rheum factor+(05/2024) Peripheral edema 05/21/2022 Primary osteoarthritis of both first carpometacarpal joints 05/04/2018 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 09/09/2015 Rosacea 09/09/2015 S/P lumbar spinal fusion 12/15/2020 Sepsis due to Gram-negative organism with septic shock (HCC) 12/17/2020 Proteus mirabilis UTI Situational anxiety 06/27/2019 Situational depression 02/27/2021 Spondylosis of lumbar region without myelopathy or radiculopathy 03/10/2018 Thyroid nodule 12/03/[address] Zacarias Unstable gait 05/21/2021 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 05/11/2021 FAMILY HISTORY Problem Relation Age of Onset Cancer Mother lung Cancer Father colon Cancer Brother lymphoma SOCIAL HISTORY Social History Tobacco Use Smoking status: Former Current packs/day: 0.00 Types: Cigarettes Quit date: 06/24/1963 Years since quittin.2 Smokeless tobacco: Never Tobacco comments: quit in his 20's - smoked socially while in college Vaping Use Vaping status: Never Used Substance Use Topics Alcohol use: Yes Comment: 1-2 drinks in A MONTH Drug use: No PHYSICAL EXAMINATION BP 105/59 (BP Site: Left Arm, BP Position: Sitting) Pulse 74 Wt 70.5 kg (155 lb 6.4 oz) SpO2 100% BMI 20.79 kg/m GENERAL EXAM: General appearance: NAD, pleasant. HEENT: NC/AT, nasal congestion absent, no oral lesions, membranes moist. NECK: ROM nml. Lungs: CTA bilaterally. CV: RRR nl S1, S2 Extr: No cyanosis, clubbing or edema. Skin: Cool to touch. NEUROLOGICAL EXAM: General: Awake, alert, fluent, no dysarthria; MOCA as above. CN: PERRL, fundi with no evidence of papilledema, EOMI and without nystagmus, VFF to confrontation,facial sensation and strength are normal and symmetric, hearing is intact to finger rub bilaterally, palate and tongue movements are intact and symmetric. SCM and trapezius strength normal. Motor: Normal tone, bulk and strength (5/5) bilaterally (throughout extremities x4). Coordination: FNF, IWONA, HTS intact. No tremors. Sensation: Light touch and vibration intact throughout. No evidence of neglect. Gait: Stable with normal stride so long as using walker. Romberg normal. Assessment and Plan: ASSESSMENT/PLAN: 1. Dementia without behavioral disturbance (HCC) - ICD9: 294.20, ICD10: F03.90 Patient with cognitive decline as above, that given history, suspect was present prior to episode of encephalopathy secondary to sepsis as above (sepsis a further provoking factor at that time). Diagnosis further supported by history, exam, MOCA and findings on MRI suggesting general cortical atrophy including involvement of bilateral temp lobes. Note that I did not identify any evidence of Parkinsonism on his examination today. As for cause of dementia, metabolic workup complete and unremarkable, no evidence of vascular etiology, and no s/s to suggest NPH. History of depression but stable per history. Suspect neurodegenerative type. Pt not wanting further imaging (I.e. quantitative MRI), not wanting evaluation by center for brain health. Tolerating current dose of Aricept 10mg daily. D/wpt and further options. They agree with trying Namenda which will be started at 5mg daily and titrated up weekly by 5mg to goal of 10mg BID. SE and ADRs d/w pt. Pt will follow up in 3-4 months or sooner prn. Dx, etiology, treatment and prognosis d/w both pt and . Quinten Yu MD I spent a total of 45 minutes on the date of the service which included preparing to see the patient, [id number] patient care, completing clinical documentation, obtaining and/or reviewing separately obtained history, performing a medically appropriate examination, counseling and educating the pat ient/family/caregiver, ordering medications, tests, or procedures, independently interpreting results (not separately reported), and communicating results to the patient/family/caregiver. (This included review of prior MRI brain with pt and his ). * Susan Rosas LPN - 09/21/2024 3:09 PM EST 09/20/2024 PROMIS Global Health Physical Health Summary Physical health: Fair Everyday physical activity, ability: A little Fatigue: Moderate Pain level: 7 General health: Fair Social activities/roles, ability: Fair Physical Health T-Score 32.4 (Poor) Physical Health Percentile 4 PROMIS Global Health Mental Health Summary Quality of life: Fair Mental health (mood,thinking): Fair Social satisfaction: Fair Emotional problems (anxious,depressed): Often Mental Health T-Score 33.8 (Fair) Mental Health Percentile 5 Percentiles provide an indication of how a patient's score ranks in relation to the [place] general population. > 31st percentile is within normal limits or better *< 31st percentile is at least SD worse than population, which may be clinically relevant < 16th percentile is at least 1 SD worse than population and warrants attention [facility]27[facility] encounter [facility]* Telephone Encounter - Ronan Jean LPN - 09/10/2024 10:00 AM EST Pt's , Peter notified of Dr Bahena's message and instructions. She verbalizes understanding. Ronan Jean LPN [facility]12-16-2024 Miscellaneous Notes* Telephone Encounter - Ronan Jean LPN - 09/10/2024 10:00 AM EST Pt's , Peter notified of Dr Bahena's message and instructions. She verbalizes understanding. Ronan Jean LPN * Telephone Encounter - Francisco Bahena MD - 09/07/2024 3:32 PM EST Let patient or know his trazodone used to be 50 mg before bed. It was increased to 100 mg before bed and he was to use up the 50 mg tabs by taking two before bed. This script is for 100 mg and therefore only need to take one before bed. The following approved medication requests have been transmitted electronically. Requested Prescriptions Signed Prescriptions Disp Refills traZODone (DESYREL) 100 mg tablet 90 tablet 0 Sig: Take 1 tablet by mouth daily at bedtime. Authorizing Provider: FRANCISCO BAHENA MD * Telephone Encounter - Clari Scott LPN - 09/07/2024 7:20 AM EST Prescription Refill Information The patient has been identified by name and date of : Yes Caregiver verified no other encounters exist for this prescription request: Yes Caregiver confirmed with patient/requestor that no other refills are due, in the near future, with this provider at this time: Yes The last office visit in the department: 06/25/24 Does the patient have a future office visit with this provider/department: Yes 01/01/24 Requested Prescriptions Pending Prescriptions Disp Refills traZODone (DESYREL) 100 mg tablet 90 tablet 0 Sig: Take 1 tablet by mouth daily at bedtime. Patient comment: Per Dr. Bahena, I have been taking 2 tablets at bedtime. Please check his orders and have the RX adjusted as such.Thanks! Clari Scott LPN September 07, 2024 7:22 AM documented in this encounterCh[facility]12-13-2024 Telephone encounter Note * Telephone Encounter - Francisco Bahena MD - 09/07/2024 3:32 PM EST Let patient or know his trazodone used to be 50 mg before bed. It was increased to 100 mg before bed and he was to use up the 50 mg tabs by taking two before bed. This script is for 100 mg and therefore only need to take one before bed. The following approved medication requests have been transmitted electronically. Requested Prescriptions Signed Prescriptions Disp Refills traZODone (DESYREL) 100 mg tablet 90 tablet 0 Sig: Take 1 tablet by mouth daily at bedtime. Authorizing Provider: FRANCISCO BAHENA MD [facility]12-13-2024 Telephone encounter Note* Telephone Encounter - Clari Scott LPN - 09/07/2024 7:20 AM EST Prescription Refill Information The patient has been identified by name and date of : Yes Caregiver verified no other encounters exist for this prescription request: Yes Caregiver confirmed with patient/requestor that no other refills are due, in the near future, with this provider at this time: Yes The last office visit in the department: 06/25/24 Does the patient have a future office visit with this provider/department: Yes 01/01/24 Requested Prescriptions Pending Prescriptions Disp Refills traZODone (DESYREL) 100 mg tablet 90 tablet 0 Sig: Take 1 tablet by mouth daily at bedtime. Patient comment: Per Dr. Bahena, I have been taking 2 tablets at bedtime. Please check his orders and have the RX adjusted as such.Thanks! Clari Scott LPN September 07, 2024 7:22 AM [facility]12-10-2024 Telephone encounter Note* Telephone Encounter - Dominique Del Toro RN - 09/04/2024 1:[address] Mccann reviewed labs. No connection to patient's neuropathy. No consult at this time needed, continue to monitor. Es Del Toro RN [facility] Work Phone: [phone]) 308-809712-10-2024 Miscellaneous Notes* Telephone Encounter - Dominique Del Toro RN - 09/04/2024 1:[address] Mccann reviewed labs. No connection to patient's neuropathy. No consult at this time needed, continue to monitor. Es Del Toro RN * Telephone Encounter - Dorothy Padgett - 09/04/2024 9:04 AM EST Please advise re: scheduling consult with Dr. Mccann. Dorothy Padgett * Telephone Encounter - Clari Carolina RN - 09/04/2024 8:38 AM EST Called and spoke with pt's Peter and notified of Dr. Bahena's recommendations. Transferred herto care team coordinator scheduler to set up the appt. * Telephone Encounter - Nubia Dwyer - 09/04/2024 8:37 AM EST Spouse routed to PSS for scheduling after speaking with PCP's clinical team. Spouse notified that provider's office will contact patient for scheduling after physician has reviewed patient's medical history. Spouse is wanting patient to be scheduled prior to end of year. Please contact patient or spouse to assist with scheduling. Referral has been updated. * Telephone Encounter - Francisco Bahena MD - 09/03/2024 3:58 PM EST Let know I want Javier to re-see Dr. Mccann one of our blood specialists to see if any further w/u is needed or just monitored. At this time I don't know what to make of these labs and if the contribute to Javier's Neuropathy. His anemia is improved as well as his iron level. * Telephone Encounter - Clari Carolina RN - 09/03/2024 3:18 PM EST Pt's calling in as pt's lab tests and urine tests came through on Tumblr. She was calling forexplanation of results. Made aware that Dr. Bahena has not had the opportunity to review them yet but once he does, we will get back to her. documented in this encounterChillic[facility]12-10-2024 Telephone encounter Note * Telephone Encounter - Dorothy Padgett - 09/04/2024 9:04 AM EST Please advise re: scheduling consult with Dr. Mccann. Dorothy Padgett [facility]12-10-2024 Telephone encounter Note* Telephone Encounter - Clari Carolina RN - 09/04/2024 8:38 AM EST Called and spoke with pt's Peter and notified of Dr. Bahena's recommendations. Transferred herto care team coordinator scheduler to set up the appt. [facility]12-10-2024 Telephone encounter Note* Telephone Encounter - Nubia Dwyer - 09/04/2024 8:37 AM EST Spouse routed to PSS for scheduling after speaking with PCP's clinical team. Spouse notified that provider's office will contact patient for scheduling after physician has reviewed patient's medical history. Spouse is wanting patient to be scheduled prior to end of year. Please contact patient or spouse to assist with scheduling. Referral has been updated. [facility]12-09-2024 Telephone encounter Note* Telephone Encounter - Francisco Bahena MD - 09/03/2024 3:58 PM EST Let know I want Javier to re-see Dr. Mccann one of our blood specialists to see if any further w/u is needed or just monitored. At this time I don't know what to make of these labs and if the contribute to Javier's Neuropathy. His anemia is improved as well as his iron level. [facility]12-09-2024 Telephone encounter Note* Telephone Encounter - Clari Carolina RN - 09/03/2024 3:18 PM EST Pt's calling in as pt's lab tests and urine tests came through on Tumblr. She was calling forexplanation of results. Made aware that Dr. Bahena has not had the opportunity to review them yet but once he does, we will get back to her. [facility]12-06-2024 Telephone encounter Note* Telephone Encounter - Bebe Brar RN - 08/31/2024 2:34 PM EST Requesting refill for Hiprex. CHRISTA: 05/04/24 Plan from that visit was: Continue methenamine BID FU Meg 1 year with PVR" Order pending if you agree. Thanks [facility]12-06-2024 Miscellaneous Notes* Telephone Encounter - Bebe Brar RN - 08/31/2024 2:34 PM EST Requesting refill for Hiprex. CHRISTA: 05/04/24 Plan from that visit was: Continue methenamine BID FU Meg 1 year with PVR" Order pending if you agree. Thanks documented in this encounterChillic[facility]12-05-2024 Telephone encounter Note * Telephone Encounter - Patrice Hartman RN - 08/30/2024 1:15 PM EST Pts called and is notified of providers results and instructions. She voices understanding andstates they will be in today or tomorrow to get labs done. Patrice Hartman RN [facility]12-05-2024 Miscellaneous Notes* Telephone Encounter - Patrice Hartman RN - 08/30/2024 1:15 PM EST Pts called and is notified of providers results and instructions. She voices understanding andstates they will be in today or tomorrow to get labs done. Patrice Hartman RN * Telephone Encounter - Francisco Bahena MD - 08/30/2024 8:14 AM EST Let patient know the nerve studies show a peripheral nerve issue like seen in diabetics not an issue from his back. I want to do some additional blood and urine studies. Orders placed. * Telephone Encounter - Ronan Jean LPN - 08/30/2024 7:39 AM EST Received pt's EMG/NCS ordered by pcp. Ronan Jean LPN Scan on 08/29/2024 2:31 PM by Provider, JULIANN LoeraC: Neurology documented in this encounterChillic[facility]12-05-2024 Telephone encounter Note * Telephone Encounter - Francisco Bahena MD - 08/30/2024 8:14 AM EST Let patient know the nerve studies show a peripheral nerve issue like seen in diabetics not an issue from his back. I want to do some additional blood and urine studies. Orders placed. [facility]12-05-[facility] Telephone encounter Note* Telephone Encounter - Ronan Jean LPN - 08/30/2024 7:39 AM EST Received pt's EMG/NCS ordered by pcp. Ronan Jean LPN Scan on 08/29/2024 2:31 PM by Provider, JULIANN LoeraC: Neurology [facility]11-25-2024 Telephone encounter Note* Telephone Encounter - Francisco Bahena MD - 08/20/2024 11:50 AM EST The following approved medication requests have been transmitted electronically. Requested Prescriptions Signed Prescriptions Disp Refills atorvastatin (LIPITOR) 10 mg tablet 90 tablet 1 Sig: Take 1 tablet by mouth daily at bedtime. For cholesterol. Authorizing Provider: FRANCISCO BAHENA MD [facility]11-25-2024 Miscellaneous Notes* Telephone Encounter - Francisco Bahena MD - 08/20/2024 11:50 AM EST The following approved medication requests have been transmitted electronically. Requested Prescriptions Signed Prescriptions Disp Refills atorvastatin (LIPITOR) 10 mg tablet 90 tablet 1 Sig: Take 1 tablet by mouth daily at bedtime. For cholesterol. Authorizing Provider: FRANCISCO BAHENA MD * Telephone Encounter - Yash Monroe MA - 08/20/2024 11:24 AM EST Prescription Refill Information The patient has been identified by name and date of : Yes Caregiver verified no other encounters exist for this prescription request: Yes Caregiver confirmed with patient/requestor that no other refills are due, in the near future, with this provider at this time: Yes The last office visit in the department: 05/2024 Does the patient have a future office visit with this provider/department: Yes Requested Prescriptions Pending Prescriptions Disp Refills atorvastatin (LIPITOR) 10 mg tablet 90 tablet 1 Sig: Take 1 tablet by mouth daily at bedtime. For cholesterol. Yash Monroe MA August 20, 2024 11:24 AM documented in this encounterCh[facility]11-25-2024 Telephone encounter Note * Telephone Encounter - Yash Monroe MA - 08/20/2024 11:24 AM EST Prescription Refill Information The patient has been identified by name and date of : Yes Caregiver verified no other encounters exist for this prescription request: Yes Caregiver confirmed with patient/requestor that no other refills are due, in the near future, with this provider at this time: Yes The last office visit in the department: 05/2024 Does the patient have a future office visit with this provider/department: Yes Requested Prescriptions Pending Prescriptions Disp Refills atorvastatin (LIPITOR) 10 mg tablet 90 tablet 1 Sig: Take 1 tablet by mouth daily at bedtime. For cholesterol. Yash Monroe MA August 20, 2024 11:24 AM [facility]11-16-[facility] Telephone encounter Note* Telephone Encounter - Francisco Bahena MD - 08/11/2024 12:28 PM EST The following approved medication requests have been transmitted electronically. Requested Prescriptions Signed Prescriptions Disp Refills furosemide (LASIX) 20 mg tablet 90 tablet 1 Sig: Take 1 tablet by mouth once daily. Francisco Bahena MD [facility]11-16-2024 Miscellaneous Notes* Telephone Encounter - Francisco Bahena MD - 08/11/2024 12:28 PM EST The following approved medication requests have been transmitted electronically. Requested Prescriptions Signed Prescriptions Disp Refills furosemide (LASIX) 20 mg tablet 90 tablet 1 Sig: Take 1 tablet by mouth once daily. Francisco Bahena MD * Telephone Encounter - Dina Perales LPN - 08/11/2024 12:03 PM EST Prescription Refill Information The patient has been identified by name and date of : Yes Caregiver verified no other encounters exist for this prescription request: Yes Caregiver confirmed with patient/requestor that no other refills are due, in the near future, with this provider at this time: Yes The last office visit in the department: 06/25/2024 Does the patient have a future office visit with this provider/department: Yes Requested Prescriptions Pending Prescriptions Disp Refills furosemide (LASIX) 20 mg tablet 90 tablet 1 Sig: Take 1 tablet by mouth once daily. Dina Perales LPN August 11, 2024 12:04 PM documented in this encounterCh[facility]ic[facility]11-16-2024 Telephone encounter Note * Telephone Encounter - Dina Perales LPN - 08/11/2024 12:03 PM EST Prescription Refill Information The patient has been identified by name and date of : Yes Caregiver verified no other encounters exist for this prescription request: Yes Caregiver confirmed with patient/requestor that no other refills are due, in the near future, with this provider at this time: Yes The last office visit in the department: 06/25/2024 Does the patient have a future office visit with this provider/department: Yes Requested Prescriptions Pending Prescriptions Disp Refills furosemide (LASIX) 20 mg tablet 90 tablet 1 Sig: Take 1 tablet by mouth once daily. Dina Perales LPN August 11, 2024 12:04 PM [facility]11-14-2024 Telephone encounter Note* Telephone Encounter - Paulette Summers MA - 08/09/2024 8:33 AM EST Pt has appt with Dr. Marroquin in Aug. Reports have been sent to Dr. Marroquin's office. Paulette Summers MA [facility]11-14-2024 Miscellaneous Notes* Telephone Encounter - Paulette Summers MA - 08/09/2024 8:33 AM EST Pt has appt with Dr. Marroquin in Aug. Reports have been sent to Dr. Marroquin's office. Paulette Summers MA * Telephone Encounter - Francisco Bahena MD - 08/08/2024 8:20 PM EST Let know his hemoglobin is slightly lower but his iron is improved. Will recheck labs in a month. Also let her know I'm aware he had a normal colonoscopy in 10/2023. With the Iron def he should see a gastro provider for EGD (scope of the esophagus, stomach and part of small intestine). I can referhim to , Friend locally. documented in this encounterCh[facility]11-13-2024 Telephone encounter Note * Telephone Encounter - Francisco Bahena MD - 08/08/2024 8:20 PM EST Let know his hemoglobin is slightly lower but his iron is improved. Will recheck labs in a month. Also let her know I'm aware he had a normal colonoscopy in 10/2023. With the Iron def he should see a gastro provider for EGD (scope of the esophagus, stomach and part of small intestine). I can referhim to , Friend locally. [facility]11-04-[facility] Telephone encounter Note* Telephone Encounter - Missy Damian RN - 07/30/2024 5:59 PM EST Spoke with patient's . Given message from provider's office. She verbalizes understanding. She says she will contact Dr. Marroquin's office tomorrow. Missy Damian RN [facility]11-04-2024 Miscellaneous Notes* Telephone Encounter - Missy Damian RN - 07/30/2024 5:59 PM EST Spoke with patient's . Given message from provider's office. She verbalizes understanding. She says she will contact Dr. Marroquin's office tomorrow. Missy Damian RN * Telephone Encounter - Maile Jules MA - 07/30/2024 4:36 PM EST Left message for patient to return call to office Maile Jules MA * Telephone Encounter - Trinidad Roque APRN.RHODA - 07/30/2024 3:23 PM EST Patient is currently on max dose of pantoprazole. Would recommend follow up with GI. * Telephone Encounter - Patrice Hartman RN - 07/30/2024 3:13 PM EST Pts called and is notified of providers results. She voices understanding. Pt is asking why his stomach is still hurting. state he has been taking the Gas-X twice a day and Tylenol for the pain. She is asking what else they can do. Patrice Hartman RN * Telephone Encounter - Trinidad Roque APRN.CNP - 07/30/2024 2:48 PM EST Please let patient know his CT is negative for acute findings. documented in this encounterChillic[facility]11-04-2024 Telephone encounter Note * Telephone Encounter - Maile Jules MA - 07/30/2024 4:36 PM EST Left message for patient to return call to office Maile Jules MA [facility]11-04-2024 Telephone encounter Note* Telephone Encounter - Trinidad Roque APRN.CNP - 07/30/2024 3:23 PM EST Patient is currently on max dose of pantoprazole. Would recommend follow up with GI. [facility]-04-[facility] Telephone encounter Note* Telephone Encounter - Patrice Hartman RN - 07/30/2024 3:13 PM EST Pts called and is notified of providers results. She voices understanding. Pt is asking why his stomach is still hurting. state he has been taking the Gas-X twice a day and Tylenol for the pain. She is asking what else they can do. Patrice Hartman, RN [facility]11-04-2024 Telephone encounter Note* Telephone Encounter - Trinidad Roque APRN.CNP - 07/30/2024 2:48 PM EST Please let patient know his CT is negative for acute findings. [facility]10-30-2024 History of Present illness Narrative* Kaylee Araujo RT(R) - 07/25/2024 11:00 AM EDT Radiology Service Progress Note DATE OF SERVICE: July 25, 2024 TIME: 1:55 PM PATIENT IDENTITY VERIFICATION COMPLETED USING TWO (2) STANDARD IDENTIFIERS: Name and Date of confirmed by patient verbally. FALL SCREENING: Has the patient had 2 falls in the last year or 1 fall with injury or currently using an Ambulatory Assistive Device (Walker, Cane, Wheelchair, Crutches, etc.)? No PATIENT GENDER DATA: Male PATIENT RELEVANT IMPLANT DATA REVIEWED: Yes PATIENT PRESENTS WITH AN IMPLANTABLE OR ATTACHED BLOW PIT OPERATOR: No ALLERGIES: Reviewed and unchanged CONTRAST ALLERGY: NO. EXAM: CT -CONTRAST INDUCED NEPHROPATHY RISK FACTORS: Patient age > 60 years CREATININE: Creatinine Date Value Ref Range Status 06/07/2024 0.99 0.73 - 1.22 mg/dL Final 11/22/2023 1.03 0.73 - 1.22 mg/dL Final 09/14/2023 0.93 0.73 - 1.22 mg/dL Final Estimated Glomerular Filtration Rate Date Value Ref Range Status 06/07/2024 77 >=60 mL/min/1.73m Final Comment: Estimated Glomerular Filtration Rate (eGFR) is calculated using the 2020 CKD-EPI creatinine equation. This equation utilizes serum creatinine, sex, and age as parameters. The creatinine assay has traceable calibration to isotope dilution- mass spectrometry. Refer to KDIGO guidelines for clinical interpretation. In patients with unstable renal function, e.g. those with acute kidney injury, the eGFRmay not accurately reflect actual GFR. eGFR- Date Value Ref Range Status 09/04/2021 >60 Final P.O.C.T. RESULTS: POC done: Yes, See Lab Tab July 25, 2024 TREATMENT: N/A PERIPHERAL IV DATA: Ambulatory: A peripheral IV was started in the Left antecubital site with a Angio cath: 22 gauge. RADIOLOGY DEPARTMENT: CT; Exam(s) Completed: Abdomen/Pelvis SIGNATURE: RT Nando(R) PATIENT NAME: Jvaier Bond DATE: July 25, 2024 TIME: 1:55 PM documented [facility] History of Present illness Narrative* Laurel Chavez, PT - 07/23/2024 2:34 PM EDT Episode Visit Count: 2 Therapist That Will Accept/Oversee The Plan Of Care: Laurel Chavez Start of Care Date: 07/04/24 Onset Date: 05/23/24 Plan of Care Certification Date: 07/04/24 Next Certification Due Date: 08/15/24 REHABILITATION AND SPORTS THERAPY PHYSICAL THERAPY TREATMENT NOTE ASSESSMENT: Javier Bond tolerated the session with decreased activity tolerance due to sudden anxiety and irritability. He demonstrated difficulty with tolerating warm up on scifit machine becoming suddenly irritable and stating that he felt SOB after 3 minutes of work at level one. Vitals taken which were WNL. PT offered to call the squad and get pt. A wc when pt. Refused squad call. Pt. Stated that he still didn't feel well and agree to end visit abruptly. The patient will continue to benefit from ongoing skilled physical therapy to progress toward set goals. PLAN FOR NEXT VISIT: SUBJECTIVE: L flank pain that does not radiate into the lower extremities. Pt. fell getting into bed. He was able to get himself up with the assistance of his . Pt. wears B knee sleeves 18/04 and refuses to take them off to sleep - stating that he needs them to stand to urinate in urinal. Patient Goals: Improve leg strength Functional Limitations: rising from a chair, standing, walking Pain: Pain Pain Level: 0 Pain Location: Leg - Left Additional Pain Information : Location 2 Pain Level 2: 5 Pain Location 2: Back Post Treatment Pain Post Treatment Pain Level: No Change OBJECTIVE MEASURES WITH LEVEL OF FUNCTION: Vitals Pulse: 73 SpO2: 99 % TREATMENT: Therapeutic Exercise: 1: seated scifit stepper seat 15, attempted for 3 min, pt. became SOB, vitals taken and WNL Skilled Intervention: Patient was educated in proper exercise technique and purpose for exercises. Skilled judgment was used in selection of appropriate interventions. Educated patient on rationale for performing exercises in regards to increase ease of ADL. Patient education as noted. Self-Senior Care Management: 1: discussed how to use a hospital urinal in the seated position -- also advised against use of knee sleeves at night 2: advised that pt. see physician regarding his sudden symptoms during PT visit today. Pt. refuses squad and wc 3: advised pt. to go to ED if pt. becomes SOB again or feels any chest pain. Denies chest pain at this time. Skilled Intervention: Skilled judgment in the selection of proper modification for activity of daily living/home management based on clinical presentation, deficits, and needs. Reviewed patient specific diagnosis in relation to activities of daily living/home management. Billing Therapeutic Exercise Treatment Minutes: 3 Self-Care/Home Management Treatment Minutes: 27 Skilled Treatment Time Minutes (timed and untimed codes): 30 Total Session Time (minutes): 30 Session Start Time : 1444 Session Stop Time : 1514 Laurel Chavez PT documented in this encounterCh[facility]10-12-2024 Telephone encounter Note * Telephone Encounter - Francisco Bahena MD - 07/07/2024 11:46 AM EDT The following approved medication requests have been transmitted electronically. Requested Prescriptions Signed Prescriptions Disp Refills ferrous sulfate 300 mg (60 mg iron)/5 mL syrup 150 mL 5 Sig: Take 5 mL by mouth once daily. Ascorbic Acid (VITAMIN C) 500 mg chew 90 tablet 1 Sig: Take 1 tablet (500 mg) by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 PERIPHERAL NERVE BLOCK (MOD 59) Bilateral 11/01/2016, 03/28/2018 bilateral lumbar facet medial branch nerve block (l4-5, L5-S1) REMOVAL OF HEMORRHOID CLOT 06/2017 SKIN BIOPSY HX SPINAL FUSION,ANT,EA ADNL LEVEL 2001 TONSILLECTOMY HX Childhood TRANSURETHRAL ELEC-SURG PROSTATECTOM 01/14/2023 XCAPSL CTRC RMVL INSJ IO LENS PROSTH W/O ECP Bilateral 08/25/2016 Social History: Tobacco Use: Medium Risk (06/26/2024) Patient History Smoking Tobacco Use: Former Smokeless Tobacco Use: Never Passive Exposure: Not on file Alcohol Use: Not At Risk (09/28/2022) AUDIT-C Frequency of Alcohol Consumption: Never Average Number of Drinks: Patient does not drink Frequency of Binge Drinking: Never PHYSICAL EXAM 06/26/24 1343 BP: 110/60 Pulse: 80 Neurological Exam [place] Cognitive Assessment (MoCA) Visuospatial / Executive: 35 Namin Attention: Read list of digits: 22 Read list of letters: 09/26 Serial 7 subtraction: 11/26 Language: Repeat sentence: 09/27 Fluency: 09/26 Abstraction: 10/28 Delayed Recall: 05 Orientation: 01/29 Total: ; Normal > or = to . Add 1 point if less than 12 years of education Cranial Nerves: Visual canchola were full tested binocularly to finger counting in all 4 quadrants with no visual extinction. Pupils were equal and both reactive to light. Extraocular movements were full with no diplopia or nystagmus. Facial sensation was normal to light touch in V1 to V3. Facial strength was symmetric. Normal hearing grossly bilaterally. Palatal raise was symmetric. Shoulder shrug was symmetric. Tongue protrusion was symmetric with no fasciculations. Minimal masked facies Right Left Shoulder Abduction: 5 5 Elbow Extension 5 5 Elbow Flexion 5 5 Wrist Extension 5 5 Finger Extension 5 5 Finger Abduction 5 5 Right Left Hip Flexion Patient deferred 5 Knee Extension Patient deferred Patient deferred Knee Flexion 5 5 Rest tremor: absent, positive postural tremor in LUE>RUE Tone: Normal in all four limbs Bradykinesia: Yes, decreased rapid alternating movements in the left upper extremity as well as left lower extremity with foot tapping. However, normal with hand waving and finger tapping. Reflexes: 1/4 throughout Sensory: normal to light touch bilaterally without simultagnosia Coordination: Normal finger to nose testing bilaterally. Patient unable to rise easily without assistance, ambulating with a rollator, short slowed gait Labs: Lab Results Component Value Date HBA1C 5.5 06/07/2024 HBA1C 5.4 11/22/2023 HBA1C 5.2 04/05/2023 HBA1C 5.2 09/04/2021 HBA1C 5.3 02/27/2021 Lab Results Component Value Date CHOL 134 06/07/2024 CHOL 167 09/04/2021 CHOL 180 09/15/2018 HDL 76 06/07/2024 HDL 72 09/04/2021 HDL 81 09/15/2018 LDL 49 06/07/2024 LDL 76 09/04/2021 LDL 88 09/15/2018 TG 45 06/07/2024 TG 93 09/04/2021 TG 55 09/15/2018 TSH Date Value Ref Range Status 11/22/2023 2.320 0.270 - 4.200 mIU/L Final Vitamin B12 Date Value Ref Range Status 11/22/2023 738 232 - 1,245 pg/mL Final Radiology: MRI Head/Brain - Last 2 Impressions MRI BRAIN WO IVCON Exam End: 11/25/2023 11:19 AM (Final result) Impression: IMPRESSION: No evidence of an intracranial acute process. Chronic changes as mentioned. ... This note was dictated using [employer] speech recognition software and may contain some errors that were a result of the program not accurately transcribing what was dictated, despite efforts to make corrections. Note that unless urgent, test and MRI results will be discussed at next follow- up visit. PROMIS (Patient-Reported Outcomes Measurement Information System) is a set of person-centered measures that evaluates and monitors physical, social, and emotional health. It can be used with the general population and with individuals living with chronic conditions. PROMIS 10: PHYSICAL AND MENTAL HEALTH: 12/23/2023 PHQ-9 PHQ-2 Score 0 Brief Assessment of Cognitive Health (BACH) Results: The patient endorsed depression symptoms on PHQ-8[1]. The patient endorsed a level of stress. The patient reported getting about hours of sleep per night, which falls into the category based onNational Sleep Foundation Guidelines [2].They endorsed recent sleep problems. The patient s cognitive test performance was . When invalid, probability of cognitive impairment score should be disregarded. Probability of cognitive impairment [3]: % Above 50% - Probable cognitive impairment; Specialty evaluation may be warranted 20-50% - Possible cognitive impairment; Address moderate to severe depression and sleep issues and retest Below 20% - Very low chance of cognitive impairment Moderate to severe levels of depression or stress may contribute to subjective cognitive complaintsin the absence of cognitive impairment [1] Cortez K, Julian TW, Brady RL, Flaco PÉREZ, Darian ClarkT, Lizandro FARRELL. The PHQ- 8 as a measure of current depression in the general population. J Affect Disord. 2009;114(1-3):163-173. doi: 10.1016/j.mary beth.2008.06.026 [2] Tosha et al. National Sleep Foundation's sleep time duration recommendations: methodologyand results summary. Sleep Health. 2015 Mar;1(1):40- 43. doi: 10.1016/j.sleh.2014.12.010. [3] Jeffery RM, Sangeeta O, Nazario AF, Jennifer DP. Automated detection of cognitive impairment in clinical practice. Medical Decision Making: Medical Decision Making Level: 1 - N/A I spent a total of 70 minutes on the date of the service which included preparing to see the patient, [id number] patient care, completing clinical documentation, obtaining and/or reviewing separately obtained history, performing a medically appropriate examination, counseling and educating the pat ient/family/caregiver, and ordering medications, tests, or procedures. documented in this encounterCh[facility]09-[facility]24 Telephone encounter Note * Telephone Encounter - Yolanda Cabral LPN - 06/25/2024 3:00 PM EDT [place] with [facility] calling regarding [prescription on Benadryl 25 mg. 1)Is pt to take (2) at onetime. 2)they do not have capsules and could you please send for tablets. Yolanda Cabral LPN [facility]09-30-[facility]24 Miscellaneous Notes* Telephone Encounter - Yolanda Cabral LPN - 06/25/2024 3:00 PM EDT Payton with [facility] calling regarding [prescription on Benadryl 25 mg. 1)Is pt to take (2) at onetime. 2)they do not have capsules and could you please send for tablets. Yolanda Cabral LPN documented in this encounterCh[facility]ic[facility]09-30-2024 Note* Addendum Note - Trinidad Roque APRN.CNP - 06/25/2024 2:22 PM EDTAddended by: TRINIDAD ROQUE on: 06/25/2024 02:22 PM Modules accepted: Orders [facility]09-30-[facility] Miscellaneous Notes* Addendum Note - Trinidad Roque APRN.CNP - 06/25/2024 2:22 PM EDTAddended by: TRINIDAD ROQUE on: 06/25/2024 02:22 PM Modules accepted: Orders documented in this encounterChillic[facility]09-30-[facility] History of Present illness Narrative* Trinidad Roque APRN.CNP - 06/25/2024 1:00 PM EDT Chief Complaint Patient presents with: 6 Month Exam HPI Javier Bond is a 83 year old male who presents here today for Above Complaints.. Patient has questions about recent lab results. No other concerns today. Patient trazodone was increased a couple weeks ago and reports reduced nightmares/night terrors. Past medical history, appointments, medications, allergies reviewed. 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/24/2022 S/p removal 08/2022 Essential hypertension, benign Essential tremor 11/21/2023 Family history of malignant neoplasm of gastrointestinal tract GERD (gastroesophageal reflux disease) 03/25/2009 Hiatal hernia 06/09/2022 History of compression fracture of spine 11/05/2019 Hypercalciuria, idiopathic 02/11/2020 Hypertrophy of prostate without urinary obstruction and other lower urinary tract symptoms (LUTS) Ilioinguinal neuralgia of left side 09/27/2019 Internal hemorrhoids without mention of complication Living will in place 10/04/2022 DPA: Peter Lumbar degenerative disc disease 09/14/2012 Lumbar radiculopathy 07/03/2020 Medicare annual wellness visit, subsequent 09/10/2021 Medicare Part B: Not able to find Last done: 09/10/2021 Memory deficits 11/21/202310/2023: w/u ok, patient declined med management Nephrolithiasis 07/04/2007 Oropharyngeal dysphagia 12/25/2020 Osteoporosis 01/28/2020 Other specified anemias 03/16/2022 Acute blood loss 11/2020 (post surgery) Pain in both hands 06/21/2024 Rheum factor+(05/2024) Peripheral edema 05/21/2022 Primary osteoarthritis of both first carpometacarpal joints 05/04/2018 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 09/09/2015 Rosacea 09/09/2015 S/P lumbar spinal fusion 12/15/2020 Sepsis due to Gram-negative organism with septic shock ([facility]) 12/17/2020 Proteus mirabilis UTI Situational anxiety 06/27/2019 Situational depression 02/27/2021 Spondylosis of lumbar region without myelopathy or radiculopathy 03/10/2018 Thyroid nodule 12/03/[address] 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 PERIPHERAL NERVE BLOCK (MOD 59) Bilateral 11/01/2016, 03/28/2018 bilateral lumbar facet medial branch nerve block (l4-5, L5-S1) REMOVAL OF HEMORRHOID CLOT 06/2017 SKIN BIOPSY HX SPINAL FUSION,ANT,EA ADNL LEVEL 2001 TONSILLECTOMY HX Childhood TRANSURETHRAL ELEC-SURG PROSTATECTOM 01/14/2023 XCAPSL CTRC RMVL INSJ IO LENS PROSTH W/O ECP Bilateral 08/25/2016 Family History FAMILY HISTORY Problem Relation Age of Onset Cancer Mother lung Cancer Father colon Cancer Brother lymphoma Patient Allergies ALLERGIES Allergen Reactions Contrast Dye Hives Finacea [Azelaic Ac* Rash Bactrim [Sulfametho* Unknown Bextra [Valdecoxib] Unknown Cardura [Doxazosin * Unknown Ciprofloxacin Unknown Cytotec [Misoprosto* Unknown Fosamax [Alendronat* Vomiting heartburn, vomiting Gabapentin Mental Status Change Ketoconazole Unknown Levofloxacin Other: See Comments Pseudomonas Mobic [Meloxicam] Unknown Nitrofurantoin Other: See Comments Per , "he didn't feel well" - unsure of reaction Nsaids (Non-Steroid* Unknown GI UPSET Relafen [Nabumetone] Unknown Terbinafine GI Upset Current Medications Current Outpatient Medications on File Prior to Visit Medication Sig traZODone (DESYREL) 100 mg tablet Take 1 tablet by mouth daily at bedtime. atorvastatin (LIPITOR) 10 mg tablet Take 1 tablet by mouth daily at bedtime. For cholesterol. donepezil (ARICEPT) 10 mg tablet Take 1 tablet by mouth daily at bedtime. hydroCHLOROthiazide 12.5 mg tablet Take 1 tablet by mouth once daily. Lactobacillus acidophilus (PROBIOTIC ACIDOPHILUS ORAL) Take 2 capsules by mouth once daily. lisinopril (ZESTRIL) 5 mg tablet Take 1 tablet by mouth once daily. dupilumab 300 mg/2 mL subcutaneous syringe ([employer]) Inject 2 mL subcutaneously every 3 weeks. PerDerm: Dr. Mariee furosemide (LASIX) 20 mg tablet Take 1 tablet by mouth once daily. Methenamine Hippurate (HIPREX) 1 gram tablet Take 1 tablet by mouth two times a day. pantoprazole DR (PROTONIX) 40 mg tablet Take 1 tablet by mouth two times a day. Ascorbic Acid (VITAMIN C) 1,000 mg tablet Take 1 tablet by mouth twice daily. d-mannose powd Take by mouth once daily. triamcinolone acetonide (KENALOG) 0.1 % cream Apply 1 application to affected area as directed. doxycycline 20 mg tablet Take 20 mg by mouth twice daily. multivit-min/iron/folic acid/K (ADULTS MULTIVITAMIN ORAL) Take 1 tablet by mouth once daily. MEDICAL SUPPLY KA for right lower extremity. acetaminophen (TYLENOL) 500 mg tablet Take 2 tablets by mouth every 8 hours as needed for Pain or Fever. aspirin 81 mg chewable tablet Take 1 tablet by mouth once daily. No current facility-administered medications on file prior to visit. Social History Social History Tobacco Use Smoking status: Former Current packs/day: 0.00 Types: Cigarettes Quit date: 06/24/1963 Years since quittin.0 Smokeless tobacco: Never Tobacco comments: quit in his 20's - smoked socially while in college Vaping Use Vaping status: Never Used Substance Use Topics Alcohol use: Yes Comment: 1-2 drinks in A MONTH Drug use: No Review of Symptoms REVIEW OF SYSTEMS SEE HPI EXAM: BP 107/57 Pulse 73 Resp 14 Wt 72.1 kg (159 lb) BMI 21.27 kg/m PHYSICAL EXAMINATION: General appearance: Well appearing, alert, in no acute distress, well-hydrated, well nourished. andecchymosis noted to LUE. Skin: Skin color, texture, turgor normal, no suspicious rashes or lesions, Positives: Ecchymosis: arms LUE Head: Normocephalic, no masses, lesions, tenderness or abnormalities Lungs: Lungs clear to auscultation. No wheezing, rhonchi, rales. Heart: RRR without murmur, gallop, or rubs. No ectopy Abdomen: Abdomen soft, non-tender. Bowel sounds normal. No masses, organomegaly, Positive findings:tenderness moderate LLQ and suprapubic Health Maintenance List Covid-19 Vaccine(2023- season) due on 05/27/2024 Diabetes Screening due on 06/07/2027 DTaP,Tdap,Td Vaccine(4 - Td or Tdap) due on 03/13/2028 Influenza Vaccine Completed Advance Directive Discussion Completed RSV Vaccine Completed Shingrix Vaccine Completed Pneumococcal Vaccine: 65+ Completed Colorectal Cancer Screening Discontinued Data reviewed Latest Ref Rng 06/15/2024 WSR 0 - 15 mm/hr 5 Rheumatoid Factor <16 IU/mL 84 (H) CRP <0.9 mg/dL <0.3 MANOLO Negative Negative CK 51 - 298 U/L 170 ASSESSMENT/PLAN: 1. Gastroesophageal reflux disease, unspecified whether esophagitis present - ICD9: 530.81, ICD10: K21.9 (primary diagnosis) - Continue treatment with Pantoprazole 40mg QD - PANTOPRAZOLE 40 MG TABLET,DELAYED RELEASE 2. Pain in both hands - ICD9: 729.5, ICD10: M79.641, M79.642 - CONSULT OCCUPATIONAL MEDICINE 3. Essential tremor - ICD9: 333.1, ICD10: G25.0 -stable 4. Essential hypertension, benign - ICD9: 401.1, ICD10: I10 - Controlled - Continue current medications - Recommend home blood pressure monitoring, to bring results to next visit - Encouraged sodium restriction, DASH or Mediterranean diet - Recommend regular aerobic exercise - Discussed need for and benefit of weight loss. BMI 21.27 kg/(m^2) 5. Lumbar radiculopathy - ICD9: 724.4, ICD10: M54.16 Chronic low back pain 6. Chronic LLQ pain - ICD9: 789.04, 338.29, ICD10: R10.32, G89.29 -Stable, no worsening. 7. BPH with urinary obstruction - ICD9: 600.01, 599.69, ICD10: N40.1, N13.8 -Stable 8. Anemia, chronic disease - ICD9: 285.29, ICD10: D63.8 -Hgb stable 9. Elevated blood sugar - ICD9: 790.29, ICD10: R73.9 -Hgba1c 5.5 10. Primary osteoarthritis of both first carpometacarpal joints - ICD9: 715.14, ICD10: M18.0 -Consult to Occupational Therapy 11. Situational depression - ICD9: 309.0, ICD10: F43.21 -Continue current medications 12. Dementia without behavioral disturbance (HCC) - ICD9: 294.20, ICD10: F03.90 -Continue aricept 13. Unstable gait - ICD9: 781.2, ICD10: R26.81 -uses wheeled walker with seat 14. 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 - ICD9: V46.8, ICD10: Z99.89 -uses wheeled walker with seat Trinidad Roque APRN.TIME SIGNAL WIRER documented in this encounterCh[facility]ic[facility]09-27-[facility]24 Telephone encounter Note * Telephone Encounter - Patrice Hartman RN - 06/22/2024 10:13 AM EDT Pts called and is notified of providers results and instructions. She voices understanding andwould like an order for a machine fancy stitcher in [facility]. Please place order. Patrice Hartman RN [facility]09-[facility] Miscellaneous Notes* Telephone Encounter - Patrice Hartman RN - 06/22/2024 10:13 AM EDT Pts called and is notified of providers results and instructions. She voices understanding andwould like an order for a machine fancy stitcher in [facility]. Please place order. Patrice Hartman, RN * Telephone Encounter - Ltaasha Mcintosh LPN - 06/22/2024 8:16 AM EDT left message for patient to call office back regarding results. Asked to speak with triage nurse Latasha Mcintosh LPN * Telephone Encounter - Francisco Bahena MD - 06/21/2024 4:08 PM EDT Let patient know hand x-ray shows significant arthritis in both hands. His labs showed that his Rheumatoid factor was elevated and the other markers were ok. I can refer him to a machine fancy stitcher in [facility] [address] in [place]. documented in this encounter[facility] Telephone encounter Note * Telephone Encounter - Latasha Mcintosh LPN - 06/22/2024 8:16 AM EDT left message for patient to call office back regarding results. Asked to speak with triage nurse Latasha Mcintosh LPN [facility]09-26-[facility] Telephone encounter Note* Telephone Encounter - Francisco Bahena MD - 06/21/2024 4:08 PM EDT Let patient know hand x-ray shows significant arthritis in both hands. His labs showed that his Rheumatoid factor was elevated and the other markers were ok. I can refer him to a machine fancy stitcher in [facility] [address] in [place]. [facility]09-[facility] History of Present illness Narrative* Faby Bruner RT(R) - 06/15/2024 12:50 PM EDT Radiology Service Progress Note PATIENT NAME: Javier Bond DATE OF SERVICE: June 15, 2024 TIME: 12:48 PM PATIENT IDENTITY VERIFICATION COMPLETED USING TWO (2) IDENTIFIERS: Name and Date of confirmedby patient verbally. FALL SCREENING: Has the patient had 2 falls in the last year or 1 fall with injury or currently using an Ambulatory Assistive Device (Walker, Cane, Wheelchair, Crutches, etc.)? No PATIENT GENDER DATA: Male PATIENT RELEVANT IMPLANT DATA REVIEWED: Yes PATIENT PRESENTS WITH AN IMPLANTABLE OR ATTACHED BLOW PIT OPERATOR: No RADIOLOGY DEPARTMENT: General X-ray: Exam(s) Completed: Upper Extremity X- Ray(s): Hand, bilateral PERIPHERAL IV DATA: Not applicable SIGNED BY: RT Mallory(Aris) June 15, 2024 12:48 PM documented in this encounterCh[facility]ic[facility]09-20-2024 [facility] History of Present illness Narrative* Francisco Bahena MD - 06/15/2024 11:20 AM EDT Chief Complaint Patient presents with: Pain HPI Javier Bond is a 83 year old male who presents here today for leg weakness. Location? Right leg is worse than the left. Feels numb on both sides when he touches the skin. Patient has known degenerative lumbar spinal stenosis which has led to him having an unstable gait and need for using a wheeled walker. He saw his back specialist in April 2024 but he was not having the increase weakness like he I now. How long? Last month, per they went back up on the Aricept to 10 mg and his weakness my have progressed more since then ., Any pain? He has noted increased low back pain, with standing he is getting pain into the back of the legs and sometimes will buckle a the knees. Any fall/injury? No Patient had weakness to where it was difficult to get up out of bed. He can start his urination ok. He has not had any fecal incontinence. He had lumbar spinal fusion back in 2000 due to persistent sciatic. Patient does have rods and screws. Patient also mentioned his memory is getting worse. Patient is on Aricept. He does have an appt with neuro coming up on . Also new issue is soreness in both hands. Especially in the PIP joints and the 1st MP joint. Past medical history, appointments, medications, allergies reviewed. 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/24/2022 S/p removal 08/2022 Essential hypertension, benign Essential tremor 11/21/2023 Family history of malignant neoplasm of gastrointestinal tract GERD (gastroesophageal reflux disease) 03/25/2009 Hiatal hernia 06/09/2022 History of compression fracture of spine 11/05/2019 Hypercalciuria, idiopathic 02/11/2020 Hypertrophy of prostate without urinary obstruction and other lower urinary tract symptoms (LUTS) Ilioinguinal neuralgia of left side 09/27/2019 Internal hemorrhoids without mention of complication Living will in place 10/04/2022 DPA: Peter Lumbar degenerative disc disease 09/14/2012 Lumbar radiculopathy 07/03/2020 Medicare annual wellness visit, subsequent 09/10/2021 Medicare Part B: Not able to find Last done: 09/10/2021 Memory deficits 11/21/202310/2023: w/u ok, patient declined med management Nephrolithiasis 07/04/2007 Oropharyngeal dysphagia 12/25/2020 Osteoporosis 01/28/2020 Other specified anemias 03/16/2022 Acute blood loss 11/2020 (post surgery) Peripheral edema 05/21/2022 Primary osteoarthritis of both first carpometacarpal joints 05/04/2018 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 09/09/2015 Rosacea 09/09/2015 S/P lumbar spinal fusion 12/15/2020 Sepsis due to Gram-negative organism with septic shock (HCC) 12/17/2020 Proteus mirabilis UTI Situational anxiety 06/27/2019 Situational depression 02/27/2021 Spondylosis of lumbar region without myelopathy or radiculopathy 03/10/2018 Thyroid nodule 12/03/[address] 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 PERIPHERAL NERVE BLOCK (MOD 59) Bilateral 11/01/2016, 03/28/2018 bilateral lumbar facet medial branch nerve block (l4-5, L5-S1) REMOVAL OF HEMORRHOID CLOT 06/2017 SKIN BIOPSY HX SPINAL FUSION,ANT,EA ADNL LEVEL 2001 TONSILLECTOMY HX Childhood TRANSURETHRAL ELEC-SURG PROSTATECTOM 01/14/2023 XCAPSL CTRC RMVL INSJ IO LENS PROSTH W/O ECP Bilateral 08/25/2016 Family History FAMILY HISTORY Problem Relation Age of Onset Cancer Mother lung Cancer Father colon Cancer Brother lymphoma Patient Allergies ALLERGIES Allergen Reactions Contrast Dye Hives Finacea [Azelaic Ac* Rash Bactrim [Sulfametho* Unknown Bextra [Valdecoxib] Unknown Cardura [Doxazosin * Unknown Ciprofloxacin Unknown Cytotec [Misoprosto* Unknown Fosamax [Alendronat* Vomiting heartburn, vomiting Gabapentin Mental Status Change Ketoconazole Unknown Levofloxacin Other: See Comments Pseudomonas Mobic [Meloxicam] Unknown Nitrofurantoin Other: See Comments Per , "he didn't feel well" - unsure of reaction Nsaids (Non-Steroid* Unknown GI UPSET Relafen [Nabumetone] Unknown Terbinafine GI Upset Current Medications Current Outpatient Medications on File Prior to Visit Medication Sig traZODone (DESYREL) 100 mg tablet Take 1 tablet by mouth daily at bedtime. atorvastatin (LIPITOR) 10 mg tablet Take 1 tablet by mouth daily at bedtime. For cholesterol. donepezil (ARICEPT) 10 mg tablet Take 1 tablet by mouth daily at bedtime. hydroCHLOROthiazide 12.5 mg tablet Take 1 tablet by mouth once daily. Lactobacillus acidophilus (PROBIOTIC ACIDOPHILUS ORAL) Take 2 capsules by mouth once daily. lisinopril (ZESTRIL) 5 mg tablet Take 1 tablet by mouth once daily. dupilumab 300 mg/2 mL subcutaneous syringe ([employer]) Inject 2 mL subcutaneously every 3 weeks[address] PerDerm: Dr. Mariee furosemide (LASIX) 20 mg tablet Take 1 tablet by mouth once daily. Methenamine Hippurate (HIPREX) 1 gram tablet Take 1 tablet by mouth two times a day. pantoprazole DR (PROTONIX) 40 mg tablet Take 1 tablet by mouth two times a day. Ascorbic Acid (VITAMIN C) 1,000 mg tablet Take 1 tablet by mouth twice daily. d-mannose powd Take by mouth once daily. triamcinolone acetonide (KENALOG) 0.1 % cream Apply 1 application to affected area as directed. doxycycline 20 mg tablet Take 20 mg by mouth twice daily. multivit-min/iron/folic acid/K (ADULTS MULTIVITAMIN ORAL) Take 1 tablet by mouth once daily. MEDICAL SUPPLY KAFO for right lower extremity. acetaminophen (TYLENOL) 500 mg tablet Take 2 tablets by mouth every 8 hours as needed for Pain or Fever. aspirin 81 mg chewable tablet Take 1 tablet by mouth once daily. No current facility-administered medications on file prior to visit. Social History Social History Tobacco Use Smoking status: Former Current packs/day: 0.00 Types: Cigarettes Quit date: 06/24/1963 Years since quittin.0 Smokeless tobacco: Never Tobacco comments: quit in his 20's - smoked socially while in college Vaping Use Vaping status: Never Used Substance Use Topics Alcohol use: Yes Comment: 1-2 drinks in A MONTH Drug use: No Review of Symptoms REVIEW OF SYSTEMS See HPI EXAM: BP (P) 104/58 (BP Site: Right Arm, BP Position: Sitting, BP Cuff Size: Regular Adult) Pulse (P) 70 Resp (P) 16 Wt (P) 70.8 kg (156 lb) BMI (P) 20.87 kg/m General Appearance: Well appearing, alert, in no acute distress, well-hydrated, well nourished.. Back:no pain to palpation of lumbar vertebrae, no muscle tenderness, reflexes are 1+ and symmetric at the knees, sensory is normal and symmetrical but to him it feels slightly numb in the lower extremities to touch. , negative SLR test. He has notable weakness with hip flexion, and knee extension bilaterally but worse on the right. Dorsiflexion of both feet is normal. Musculoskeletal: see back section. Neurologic: Gait aided by a walker. Reflexes normal and symmetric. Sensation as above Health Maintenance List Covid-19 Vaccine( season) due on 05/27/2024 Influenza Vaccine(1) due on 05/27/2024 Diabetes Screening due on 06/07/2027 DTaP,Tdap,Td Vaccine(4 - Td or Tdap) due on 03/13/2028 Advance Directive Discussion Completed RSV Vaccine Completed Shingrix Vaccine Completed Pneumococcal Vaccine: 65+ Completed Colorectal Cancer Screening Discontinued Data reviewed A/P ASSESSMENT/PLAN: 1. Degenerative lumbar spinal stenosis - ICD9: 724.02, ICD10: M48.061 (primary diagnosis) Suspect his stenosis may have worsened. - CONSULT TO PHYSICAL THERAPY 2. Weakness of both lower extremities - ICD9: 729.89, ICD10: R29.898 - as above. - CONSULT TO PHYSICAL THERAPY - may need MRI lumbar spine. 3. Encounter for immunization - ICD9: V03.89, ICD10: Z23 - INFLUENZA VACCINE, PRSV FREE, AGE 65+ YR, HIGH DOSE, TRIVALENT (FLUZONE HIGH- DOSE): given 4. Pain in both hands - ICD9: 729.5, ICD10: M79.641, M79.642 Check - XR HAND GENERAL 3V PA/LAT/OBL BILATERAL - check CK, MANOLO, RF, ESR and CRP. This could be from his Aricept as well. Aricept can cause Rabdo. 5. Numbness and tingling of both legs - ICD9: 782.0, ICD10: R20.0, R20.2 - will get NCS/EMG studies at [facility] I spent a total of 40 minutes on the date of the service which included preparing to see the patient, [id number] patient care, completing clinical documentation, performing a medically appropriate examination, counseling and educating the patient/family/caregiver and ordering medications, tests, or procedures. Francisco Bahena MD documented in this encounterChillic[facility]09-20-2024 Note[facility]09-12-2024 NoteA[facility]09-12-[facility] History of Present illness Narrative* Trinidad Roque, PRODUCTION ENGINEER TRACK.TIME SIGNAL WIRER - 06/07/2024 3:31 PM EDT Chief Complaint Patient presents with: nightmares HPI Javier Bond is a 83 year old male who presents here today for Above Complaints.. Patient presents for nightmares. Has a history of dementia and currently on aricept, trazodone. Patient currently takes trazodone in the morning. Past medical history, appointments, medications, allergies reviewed. 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/24/2022 S/p removal 08/2022 Essential hypertension, benign Essential tremor 11/21/2023 Family history of malignant neoplasm of gastrointestinal tract GERD (gastroesophageal reflux disease) 03/25/2009 Hiatal hernia 06/09/2022 History of compression fracture of spine 11/05/2019 Hypercalciuria, idiopathic 02/11/2020 Hypertrophy of prostate without urinary obstruction and other lower urinary tract symptoms (LUTS) Ilioinguinal neuralgia of left side 09/27/2019 Internal hemorrhoids without mention of complication Living will in place 10/04/2022 DPA: Peter Lumbar degenerative disc disease 09/14/2012 Lumbar radiculopathy 07/03/2020 Medicare annual wellness visit, subsequent 09/10/2021 Medicare Part B: Not able to find Last done: 09/10/2021 Memory deficits 11/21/202310/2023: w/u ok, patient declined med management Nephrolithiasis 07/04/2007 Oropharyngeal dysphagia 12/25/2020 Osteoporosis 01/28/2020 Other specified anemias 03/16/2022 Acute blood loss 11/2020 (post surgery) Peripheral edema 05/21/2022 Primary osteoarthritis of both first carpometacarpal joints 05/04/2018 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 09/09/2015 Rosacea 09/09/2015 S/P lumbar spinal fusion 12/15/2020 Sepsis due to Gram-negative organism with septic shock (HCC) 12/17/2020 Proteus mirabilis UTI Situational anxiety 06/27/2019 Situational depression 02/27/2021 Spondylosis of lumbar region without myelopathy or radiculopathy 03/10/2018 Thyroid nodule 12/03/[address] 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 PERIPHERAL NERVE BLOCK (MOD 59) Bilateral 11/01/2016, 03/28/2018 bilateral lumbar facet medial branch nerve block (l4-5, L5-S1) REMOVAL OF HEMORRHOID CLOT 06/2017 SKIN BIOPSY HX SPINAL FUSION,ANT,EA ADNL LEVEL 2001 TONSILLECTOMY HX Childhood TRANSURETHRAL ELEC-SURG PROSTATECTOM 01/14/2023 XCAPSL CTRC RMVL INSJ IO LENS PROSTH W/O ECP Bilateral 08/25/2016 Family History FAMILY HISTORY Problem Relation Age of Onset Cancer Mother lung Cancer Father colon Cancer Brother lymphoma Patient Allergies ALLERGIES Allergen Reactions Contrast Dye Hives Finacea [Azelaic Ac* Rash Bactrim [Sulfametho* Unknown Bextra [Valdecoxib] Unknown Cardura [Doxazosin * Unknown Ciprofloxacin Unknown Cytotec [Misoprosto* Unknown Fosamax [Alendronat* Vomiting heartburn, vomiting Gabapentin Mental Status Change Ketoconazole Unknown Levofloxacin Other: See Comments Pseudomonas Mobic [Meloxicam] Unknown Nitrofurantoin Other: See Comments Per , "he didn't feel well" - unsure of reaction Nsaids (Non-Steroid* Unknown GI UPSET Relafen [Nabumetone] Unknown Terbinafine GI Upset Current Medications Current Outpatient Medications on File Prior to Visit Medication Sig atorvastatin (LIPITOR) 10 mg tablet Take 1 tablet by mouth daily at bedtime. For cholesterol. donepezil (ARICEPT) 10 mg tablet Take 1 tablet by mouth daily at bedtime. hydroCHLOROthiazide 12.5 mg tablet Take 1 tablet by mouth once daily. Lactobacillus acidophilus (PROBIOTIC ACIDOPHILUS ORAL) Take 2 capsules by mouth once daily. lisinopril (ZESTRIL) 5 mg tablet Take 1 tablet by mouth once daily. dupilumab 300 mg/2 mL subcutaneous syringe ([employer]) Inject 2 mL subcutaneously every 3 weeks[address] PerDerm: Dr. Mariee furosemide (LASIX) 20 mg tablet Take 1 tablet by mouth once daily. Methenamine Hippurate (HIPREX) 1 gram tablet Take 1 tablet by mouth two times a day. pantoprazole DR (PROTONIX) 40 mg tablet Take 1 tablet by mouth two times a day. traZODone (DESYREL) 50 mg tablet Take 0.5 tablets by mouth daily at bedtime. Ascorbic Acid (VITAMIN C) 1,000 mg tablet Take 1 tablet by mouth twice daily. d-mannose powd Take by mouth once daily. triamcinolone acetonide (KENALOG) 0.1 % cream Apply 1 application to affected area as directed. doxycycline 20 mg tablet Take 20 mg by mouth twice daily. multivit-min/iron/folic acid/K (ADULTS MULTIVITAMIN ORAL) Take 1 tablet by mouth once daily. MEDICAL SUPPLY KAFO for right lower extremity. acetaminophen (TYLENOL) 500 mg tablet Take 2 tablets by mouth every 8 hours as needed for Pain or Fever. aspirin 81 mg chewable tablet Take 1 tablet by mouth once daily. No current facility-administered medications on file prior to visit. Social History Social History Tobacco Use Smoking status: Former Current packs/day: 0.00 Types: Cigarettes Quit date: 06/24/1963 Years since quittin.9 Smokeless tobacco: Never Tobacco comments: quit in his 20's - smoked socially while in college Vaping Use Vaping status: Never Used Substance Use Topics Alcohol use: Yes Comment: 1-2 drinks in A MONTH Drug use: No Review of Symptoms REVIEW OF SYSTEMS SEE HPI EXAM: BP 118/63 Pulse 76 Resp 14 Wt 71.7 kg (158 lb) BMI 21.13 kg/m General Appearance: Well appearing, alert, in no acute distress, well-hydrated, well nourished. Lungs: Lungs clear to auscultation. No wheezing, rhonchi, rales.. Heart: RRR without murmur, gallop, or rubs. No ectopy. Health Maintenance List Covid-19 Vaccine( season) due on 05/27/2024 Influenza Vaccine(1) due on 05/27/2024 Diabetes Screening due on 11/22/2026 DTaP,Tdap,Td Vaccine(4 - Td or Tdap) due on 03/13/2028 Advance Directive Discussion Completed RSV Vaccine Completed Shingrix Vaccine Completed Pneumococcal Vaccine: 65+ Completed Colorectal Cancer Screening Discontinued ASSESSMENT/PLAN: 1. Nightmares - ICD9: 307.47, ICD10: F51.5 (primary diagnosis) - CONSULT TO NEUROLOGY - TRAZODONE 100 MG TABLET 2. Dementia without behavioral disturbance (HCC) - ICD9: 294.20, ICD10: F03.90 - CONSULT TO NEUROLOGY - TRAZODONE 100 MG TABLET 3. Situational depression - ICD9: 309.0, ICD10: F43.21 - TRAZODONE 100 MG TABLET Patient to increase trazodone and switch dosing from morning to bedtime. Patient requesting to schedule with local neurologist prior to being referred to [facility]. Trinidad Roque APRN.TIME SIGNAL WIRER documented in this encounterChillic[facility]09-12-2024 Telephone encounter Note * Telephone Encounter - Dorothy Hernandez RN - 06/07/2024 11:09 AM EDT See Triage note [facility] Miscellaneous Notes* Telephone Encounter - Dorothy Hernandez RN - 06/07/2024 11:09 AM EDT See Triage note * Telephone Encounter - Mignon Wayne LPN - 06/07/2024 10:51 AM EDT Patient returning call, sent to Triage Pool. Mignon Wayne LPN * Telephone Encounter - Valeria Roland MA - 06/07/2024 9:56 AM EDT Left message for pt to speak to a triage nurse to discuss further. Valeria Roland MA June 07, 2024 9:59 AM documented in this encounterChillicothe Hospital09-12-2024 Telephone encounter Note * Telephone Encounter - Dorothy Hernandez RN - 06/07/2024 11:01 AM EDT Patient call in for nightmares. Patient scheduled with Trinidad sanders to discuss. Patient worried that this could mean that his memory issues are getting worse. Answer Assessment - Initial Assessment Questions 1. DESCRIPTION: Patient states that he has been having bad nightmares that he has been having a hard time getting back to sleep 2. ONSET: Couple Months. 3. RECURRENT: Denies; Patient does have memory issues. 4. STRESS: Denies stress 5. PAIN: Denies 6. CAFFEINE ABUSE: Denies 7. ALCOHOL USE OR SUBSTANCE USE (DRUG USE): Denies 8. OTHER SYMPTOMS: Denies other symptoms Patient was not at home and there were people chasing him. Patient states that he was trying to find his residence but was unable to. Patient woke up and was shaken by what he was experiencing. Protocols used: [id number] [facility]09-[facility] Miscellaneous Notes* Telephone Encounter - Dorothy Hernandez RN - 06/07/2024 11:01 AM EDT Patient call in for nightmares. Patient scheduled with Trinidad sanders to discuss. Patient worried that this could mean that his memory issues are getting worse. Answer Assessment - Initial Assessment Questions 1. DESCRIPTION: Patient states that he has been having bad nightmares that he has been having a hard time getting back to sleep 2. ONSET: Couple Months. 3. RECURRENT: Denies; Patient does have memory issues. 4. STRESS: Denies stress 5. PAIN: Denies 6. CAFFEINE ABUSE: Denies 7. ALCOHOL USE OR SUBSTANCE USE (DRUG USE): Denies 8. OTHER SYMPTOMS: Denies other symptoms Patient was not at home and there were people chasing him. Patient states that he was trying to find his residence but was unable to. Patient woke up and was shaken by what he was experiencing. Protocols used: [id number] documented in this encounterChillicothe Hospital09-12-2024 Telephone encounter Note * Telephone Encounter - Mignon Wayne LPN - 06/07/2024 10:51 AM EDT Patient returning call, sent to Triage Pool. Mignon Wayne LPN [facility] Telephone encounter Note* Telephone Encounter - Valeria Roland MA - 06/07/2024 9:56 AM EDT Left message for pt to speak to a triage nurse to discuss further. Valeria Roland MA June 07, 2024 9:59 AM [facility] Tele[facility] encounter Note* Telephone Encounter - Ronan Jean LPN - 05/30/2024 9:11 AM EDT Prescription Refill Information The patient has been identified by name and date of : Yes Caregiver verified no other encounters exist for this prescription request: Yes Caregiver confirmed with patient/requestor that no other refills are due, in the near future, with this provider at this time: Yes The last office visit in the department: 02/23/24 Does the patient have a future office visit with this provider/department: Yes Requested Prescriptions Pending Prescriptions Disp Refills atorvastatin (LIPITOR) 10 mg tablet 90 tablet 1 Sig: Take 1 tablet by mouth daily at bedtime. For cholesterol. Ronan Jean LPN May 30, 2024 9:11 AM [facility]09-04-2024 Miscellaneous Notes* Telephone Encounter - Ronan Jean LPN - 05/30/2024 9:11 AM EDT Prescription Refill Information The patient has been identified by name and date of : Yes Caregiver verified no other encounters exist for this prescription request: Yes Caregiver confirmed with patient/requestor that no other refills are due, in the near future, with this provider at this time: Yes The last office visit in the department: 02/23/24 Does the patient have a future office visit with this provider/department: Yes Requested Prescriptions Pending Prescriptions Disp Refills atorvastatin (LIPITOR) 10 mg tablet 90 tablet 1 Sig: Take 1 tablet by mouth daily at bedtime. For cholesterol. Ronan Jean LPN May 30, 2024 9:11 AM documented in this encounterCh[facility]08[facility]24 Telephone encounter Note * Telephone Encounter - Francisco Bahena MD - 05/09/2024 9:43 PM EDT The following approved medication requests have been transmitted electronically. Requested Prescriptions Signed Prescriptions Disp Refills hydroCHLOROthiazide 12.5 mg tablet 90 tablet 1 Sig: Take 1 tablet by mouth once daily. Authorizing Provider: FRANCISCO BAHENA MD [facility]08-14-2024 Miscellaneous Notes* Telephone Encounter - Francisco Bahena MD - 05/09/2024 9:43 PM EDT The following approved medication requests have been transmitted electronically. Requested Prescriptions Signed Prescriptions Disp Refills hydroCHLOROthiazide 12.5 mg tablet 90 tablet 1 Sig: Take 1 tablet by mouth once daily. Authorizing Provider: FRANCISCO BAHENA MD * Telephone Encounter - Roselyn Negro LPN - 05/09/2024 3:25 PM EDT Prescription Refill Information The patient has been identified by name and date of : Yes Caregiver verified no other encounters exist for this prescription request: Yes Caregiver confirmed with patient/requestor that no other refills are due, in the near future, with this provider at this time: Yes The last office visit in the department: 02/23/24 Does the patient have a future office visit with this provider/department: Yes Requested Prescriptions Pending Prescriptions Disp Refills hydroCHLOROthiazide 12.5 mg tablet 90 tablet 1 Sig: Take 1 tablet by mouth once daily. Roselyn Negro LPN May 09, 2024 3:26 PM documented in this encounterChillic[facility]08-14-2024 Telephone encounter Note * Telephone Encounter - Roselyn Negro LPN - 05/09/2024 3:27 PM EDT Prescription Refill Information The patient has been identified by name and date of : Yes Caregiver verified no other encounters exist for this prescription request: Yes Caregiver confirmed with patient/requestor that no other refills are due, in the near future, with this provider at this time: Yes The last office visit in the department: 02/23/24 Does the patient have a future office visit with this provider/department: Yes Requested Prescriptions Pending Prescriptions Disp Refills donepezil (ARICEPT) 10 mg tablet 90 tablet 1 Sig: Take 1 tablet by mouth daily at bedtime. Roselyn Negro LPN May 09, 2024 3:27 PM [facility]08-14-2024 Miscellaneous Notes* Telephone Encounter - Roselyn Negro LPN - 05/09/2024 3:27 PM EDT Prescription Refill Information The patient has been identified by name and date of : Yes Caregiver verified no other encounters exist for this prescription request: Yes Caregiver confirmed with patient/requestor that no other refills are due, in the near future, with this provider at this time: Yes The last office visit in the department: 02/23/24 Does the patient have a future office visit with this provider/department: Yes Requested Prescriptions Pending Prescriptions Disp Refills donepezil (ARICEPT) 10 mg tablet 90 tablet 1 Sig: Take 1 tablet by mouth daily at bedtime. Roselyn Negro LPN May 09, 2024 3:27 PM documented in this encounterChillicothe Hospital08-14-2024 Telephone encounter Note * Telephone Encounter - Roselyn Negro LPN - 05/09/2024 3:25 PM EDT Prescription Refill Information The patient has been identified by name and date of : Yes Caregiver verified no other encounters exist for this prescription request: Yes Caregiver confirmed with patient/requestor that no other refills are due, in the near future, with this provider at this time: Yes The last office visit in the department: 02/23/24 Does the patient have a future office visit with this provider/department: Yes Requested Prescriptions Pending Prescriptions Disp Refills hydroCHLOROthiazide 12.5 mg tablet 90 tablet 1 Sig: Take 1 tablet by mouth once daily. Roselyn Negro LPN May 09, 2024 3:26 PM [facility]08-09-2024 Nurse Note* Yumiko Clements LPN - 05/04/2024 11:44 AM EDT PVR 75 ML [facility]08-09-2024 Nurse Note* Yumiko Clements LPN - 05/04/2024 11:44 AM EDT PVR 75 ML documented in this encounterChillic[facility]08-09-[facility] History of Present illness Narrative* Yun Coles MD - 05/04/2024 11:25 AM EDT [facility] PELVIC [facility]IC[facility] AND RECONSTRUCTIVE SURGERY HISTORY OF PRESENT ILLNESS: Javier Bond is a 83 year old F female here today for a follow up regarding recurrent UTIs. Last visit 01/06/24. No interim UTIs. IMPRESSION: 83 yo M with history of BPH with bladder remodeling, incomplete emptying and recurrent UTIs s/p TURP 01/14/23 now with recurrence of UTIs. Extend Bactrim to 14d course Restart methenamine BID after completing Bactrim If persistent UTIs, will cysto and likely plan URS/LL for possible stone colonization Culture Results - Past 1 Year Culture 09/22/2023 >=100,000 CFU/ml Escherichia coli ! 10/13/2023 >=100,000 CFU/ml Escherichia coli ! 10/21/2023 No growth (<1,000 CFU/ml) 10/27/2023 <10,000 CFU/ml Mixed microbiota ! 12/28/2023 >=100,000 CFU/ml Escherichia coli ! 01/17/2024 <10,000 CFU/ml Normal urogenital fifi Today he and report he's doing well. No UTIs. Happy with Hipprex. HISTORIES: PAST MEDICAL HISTORY PAST MEDICAL HISTORY 12/14/2022: Abnormal SPEP 10/04/2022: Advance directive discussed with patient Comment: Discussed 09/202208/25/2023: Anemia, chronic disease Comment: Hg runs 10-12.7 No date: Arthritis 11/30/2002: Benign intracranial hypertension 12/03/2020: Bilateral carotid artery stenosis Comment: US 08/2020: Rt 20-40%, Lt 0-20% 07/04/2007: BPH with urinary obstruction 06/27/2023: Cervical spondylosis without myelopathy 12/03/2020: Chronic constipation 02/23/2024: Chronic LLQ pain Comment: A constant dull ache: w/u was neg 11/05/2019: Compression fracture of third lumbar vertebra (HCC) 12/15/2020: Degenerative lumbar spinal stenosis 12/23/2023: Dementia without behavioral disturbance (HCC) 12/23/2023: Dementia without behavioral disturbance (HCC) Comment: 10/2023: w/u ok, patient initially declined med management but changed his mind and stated Aricpet mid 11/2023. No date: Duodenitis without mention of hemorrhage 09/28/2017: ED (erectile dysfunction) of organic origin 08/31/2021: Elevated blood sugar 09/09/2015: Episodic cluster headache, not intractable 06/24/2022: Esophageal diverticulum Comment: S/p removal 08/2022 No date: Essential hypertension, benign 11/21/2023: Essential tremor No date: Family history of malignant neoplasm of gastrointestinal tract 03/25/2009: GERD (gastroesophageal reflux disease) 06/09/2022: Hiatal hernia 11/05/2019: History of compression fracture of spine 02/11/2020: Hypercalciuria, idiopathic No date: Hypertrophy of prostate without urinary obstruction and other lower urinary tract symptoms (LUTS) 09/27/2019: Ilioinguinal neuralgia of left side No date: Internal hemorrhoids without mention of complication 10/04/2022: Living will in place Comment: COLIN: Peter 09/14/2012: Lumbar degenerative disc disease 07/03/2020: Lumbar radiculopathy 09/10/2021: Medicare annual wellness visit, subsequent Comment: Medicare Part B: Not able to find Last done: 09/10/2021 11/21/2023: Memory deficits Comment: 10/2023: w/u ok, patient declined med management 07/04/2007: Nephrolithiasis 12/25/2020: Oropharyngeal dysphagia 01/28/2020: Osteoporosis 03/16/2022: Other specified anemias Comment: Acute blood loss 11/2020 (post surgery) 05/21/2022: Peripheral edema 05/04/2018: Primary osteoarthritis of both first carpometacarpal joints 09/09/2015: 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 09/09/2015: Rosacea 12/15/2020: S/P lumbar spinal fusion 12/17/2020: Sepsis due to Gram-negative organism with septic shock (HCC) Comment: Proteus mirabilis UTI 06/27/2019: Situational anxiety 02/27/2021: Situational depression 03/10/2018: Spondylosis of lumbar region without myelopathy or radiculopathy 12/03/2020: Thyroid nodule Comment: Seeing Dr. Zacarias 05/21/2021: Unstable gait 05/11/2021: 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 PAST SURGICAL HISTORY PAST SURGICAL HISTORY 05/24/2018: ARTHRP INTERPOS INTERCARPAL/METACARPAL JOINTS; Left Comment: Left thumb CMC arthroplasty with LRTI and MCP pinning of left thumb 07/17/08, 2013: COLONOSCOPY FLX DX W/COLLJ SPEC WHEN PFRMD 03/28/2019: COLONOSCOPY FLX DX W/COLLJ SPEC WHEN PFRMD Comment: MICHAEL Cebul 02/20/2021: CYSTO.PANENDO Comment: stent removal 12/26/2008: EGD TRANSORAL BIOPSY SINGLE/MULTIPLE 03/18/2020: ESOPHAGOGASTRODUODENOSCOPY TRANSORAL DIAGNOSTIC Comment: EGD No date: EXCISION OF CYST Comment: squamous cell on head No date: EYE SURGERY HX No date: HERNIA REPAIR HX 03/11/2009: LAP, REVISION DEMETRIO FUNDOPLASTY Comment: hiatal hernia 03/11/2009: LAPAROSCOPY SURG CHOLECYSTECTOMY 1982,12/07/2006, 2012: LITHOTRIPSY XTRCORP SHOCK WAVE 11/28/2006, 2012 (R): NEPHROLITHOTOMY REMOVAL STAGE 1; Right Comment: ureteroscopic 12/06/2002: OPEN REPAIR OF ROTATOR CUFF ACUTE; Right 08/26/2004: OPEN REPAIR OF ROTATOR CUFF ACUTE; Left 08/2022: PAST SURGICAL HISTORY OF Comment: re-moval of esophageal diverticulum. 11/01/2016, 03/28/2018: PERIPHERAL NERVE BLOCK (MOD 59); Bilateral Comment: bilateral lumbar facet medial branch nerve block (l4-5, L5-S1) 06/2017: REMOVAL OF HEMORRHOID CLOT No date: SKIN BIOPSY HX 2000: SPINAL FUSION,ANT,EA ADNL LEVEL Childhood: TONSILLECTOMY HX 01/14/2023: TRANSURETHRAL ELEC-SURG PROSTATECTOM 08/25/2016: XCAPSL CTRC RMVL INSJ IO LENS PROSTH W/O ECP; Bilateral FAMILY HISTORY FAMILY HISTORY Problem Relation Age of Onset Cancer Mother lung Cancer Father colon Cancer Brother lymphoma SOCIAL HISTORY Social History Tobacco Use Smoking status: Former Types: Cigarettes Quit date: 06/24/1963 Years since quittin.9 Smokeless tobacco: Never Tobacco comments: quit in his 20's - smoked socially while in college Vaping Use Vaping Use: Never used Substance Use Topics Alcohol use: Yes Comment: 1-2 drinks in A MONTH Drug use: No MEDICATIONS: Current Outpatient Medications Medication Sig lisinopril (ZESTRIL) 5 mg tablet Take 1 tablet by mouth once daily. SENNA-DOCUSATE SODIUM ORAL Take 1 capsule by mouth once daily. atorvastatin (LIPITOR) 10 mg tablet Take 1 tablet by mouth daily at bedtime. For cholesterol. dupilumab 300 mg/2 mL subcutaneous syringe ([employer]) Inject 2 mL subcutaneously every 3 weeks[address] PerDerm: Dr. Mariee donepezil (ARICEPT) 10 mg tablet Take 1 tablet by mouth daily at bedtime. furosemide (LASIX) 20 mg tablet Take 1 tablet by mouth once daily. Methenamine Hippurate (HIPREX) 1 gram tablet Take 1 tablet by mouth two times a day. pantoprazole DR (PROTONIX) 40 mg tablet Take 1 tablet by mouth two times a day. hydroCHLOROthiazide 12.5 mg tablet Take 1 tablet by mouth once daily. meclizine HCl (ANTIVERT ORAL) Take by mouth as needed. traZODone (DESYREL) 50 mg tablet Take 0.5 tablets by mouth daily at bedtime. methocarbamol (ROBAXIN) 500 mg tablet Take 500 mg by mouth once daily as needed. fexofenadine (HESHAM ALLERGY) 180 mg tablet Take one tablet one to two times a day Ascorbic Acid (VITAMIN C) 1,000 mg tablet Take 1 tablet by mouth twice daily. d-mannose powd Take by mouth once daily. triamcinolone acetonide (KENALOG) 0.1 % cream Apply 1 application to affected area as directed. doxycycline 20 mg tablet Take 20 mg by mouth twice daily. multivit-min/iron/folic acid/K (ADULTS MULTIVITAMIN ORAL) Take 1 tablet by mouth once daily. MEDICAL SUPPLY KAFO for right lower extremity. acetaminophen (TYLENOL) 500 mg tablet Take 2 tablets by mouth every 8 hours as needed for Pain or Fever. aspirin 81 mg chewable tablet Take 1 tablet by mouth once daily. No current facility-administered medications for this visit. CURRENT ALLERGIES: Allergies As of Date: 05/04/2024 Allergen Noted Reaction CONTRAST DYE 03/24/2009 Hives FINACEA [AZELAIC ACID] 09/28/2017 Rash BACTRIM [SULFAMETHOXAZOLE-TRIMETH*06/02/2005 Unknown BEXTRA [VALDECOXIB] 06/02/2005 Unknown CARDURA [DOXAZOSIN MESYLATE] 06/02/2005 Unknown CIPROFLOXACIN 11/30/2002 Unknown CYTOTEC [MISOPROSTOL] 06/02/2005 Unknown FOSAMAX [ALENDRONATE SODIUM] 01/04/2020 Vomiting GABAPENTIN 01/28/2021 Mental Status Change KETOCONAZOLE 09/06/2008 Unknown LEVOFLOXACIN 01/26/2012 Other: See Comments MOBIC [MELOXICAM] 06/02/2005 Unknown NITROFURANTOIN 05/15/2021 Other: See Comments NSAIDS (NON-STEROIDAL ANTI-INFLAM*11/30/2002 Unknown RELAFEN [NABUMETONE] 06/02/2005 Unknown TERBINAFINE 10/02/2009 GI Upset Fully Assessed 03/13/2024 PHYSICAL EXAM: General: No acute distress, well appearing PVR: 75 mL via bladder US IMPRESSION: 83 yo M with history of BPH with bladder remodeling, incomplete emptying and recurrent UTIs s/p TURP 01/14/23, UTIs currently well controlled Continue methenamine BID FU Meg 1 year with PVR All questions and concerns were addressed. Yun Coles MD documented in this encounterCh[facility]07[facility] Telephone encounter Note * Telephone Encounter - Paulette Summers MA - 04/12/2024 1:06 PM EDT Pt notified via sli.do that there should be refills at pharmacy for Lisinopril. Paulette Summers MA [facility]07-18-2024 Miscellaneous Notes* Telephone Encounter - Paulette Summers MA - 04/12/2024 1:06 PM EDT Pt notified via sli.do that there should be refills at pharmacy for Lisinopril. Paulette Summers MA documented in this encounterChillic[facility]07-12-2024 Telephone encounter Note * Telephone Encounter - Ronan Jean LPN - 04/06/2024 7:40 AM EDT Prescription Refill Information The patient has been identified by name and date of : Yes Caregiver verified no other encounters exist for this prescription request: Yes Caregiver confirmed with patient/requestor that no other refills are due, in the near future, with this provider at this time: Yes The last office visit in the department: 02/23/24 Does the patient have a future office visit with this provider/department: Yes Requested Prescriptions Pending Prescriptions Disp Refills lisinopril (ZESTRIL) 5 mg tablet 90 tablet 1 Sig: Take 1 tablet by mouth once daily. Ronan Jean LPN April 06, 2024 7:40 AM [facility]07-12-2024 Miscellaneous Notes* Telephone Encounter - Ronan Jean LPN - 04/06/2024 7:40 AM EDT Prescription Refill Information The patient has been identified by name and date of : Yes Caregiver verified no other encounters exist for this prescription request: Yes Caregiver confirmed with patient/requestor that no other refills are due, in the near future, with this provider at this time: Yes The last office visit in the department: 02/23/24 Does the patient have a future office visit with this provider/department: Yes Requested Prescriptions Pending Prescriptions Disp Refills lisinopril (ZESTRIL) 5 mg tablet 90 tablet 1 Sig: Take 1 tablet by mouth once daily. Ronan Jean LPN April 06, 2024 7:40 AM documented in this encounterChillic[facility]06-18-[facility]24 History of Present illness Narrative* Aris Baeza MD - 03/13/2024 2:26 PM EDT Javier is 3 years out from surgery. He is continuing to do okay. He is content with his current alignment and level of symptoms. On clinical exam he remains standing in positive sagittal balance. Normal neurologic exam. He will continue with his activities as tolerated. I will see him back in 1 years time. Aris Baeza MD * Aris Baeza MD - 03/13/2024 2:21 PM EDT Images from the original note were not included. SPINE SURGERY ESTABLISHED VISIT This is an in-person visit. DATE OF SERVICE: 03/13/2024 DATE OF LAST VISIT: 03/08/2023 SUBJECTIVE: HPI:Javier Bond is a 83 year old male presenting with spouse for 3 year follow up from his 3-sacrum PSF. He is doing relatively well but has been dealing with some cognitive decline. Still living independently with spouse. Walks his neighborhood and about 150 stairs a day. Overall doing ok despite significant positive sagittal balance. MEDICATIONS: SENNA-DOCUSATE SODIUM ORAL Take 1 capsule by mouth once daily. atorvastatin (LIPITOR) 10 mg tablet Take 1 tablet by mouth daily at bedtime. For cholesterol. dupilumab 300 mg/2 mL subcutaneous syringe ([employer]) Inject 2 mL subcutaneously every 3 weeks[address] PerDerm: Dr. Mariee donepezil (ARICEPT) 10 mg tablet Take 1 tablet by mouth daily at bedtime. furosemide (LASIX) 20 mg tablet Take 1 tablet by mouth once daily. Methenamine Hippurate (HIPREX) 1 gram tablet Take 1 tablet by mouth two times a day. pantoprazole DR (PROTONIX) 40 mg tablet Take 1 tablet by mouth two times a day. hydroCHLOROthiazide 12.5 mg tablet Take 1 tablet by mouth once daily. meclizine HCl (ANTIVERT ORAL) Take by mouth as needed. lisinopril (ZESTRIL) 5 mg tablet Take 1 tablet by mouth once daily. traZODone (DESYREL) 50 mg tablet Take 0.5 tablets by mouth daily at bedtime. methocarbamol (ROBAXIN) 500 mg tablet Take 500 mg by mouth once daily as needed. fexofenadine (HESHAM ALLERGY) 180 mg tablet Take one tablet one to two times a day d-mannose powd Take by mouth once daily. triamcinolone acetonide (KENALOG) 0.1 % cream Apply 1 application to affected area as directed. doxycycline 20 mg tablet Take 20 mg by mouth twice daily. multivit-min/iron/folic acid/K (ADULTS MULTIVITAMIN ORAL) Take 1 tablet by mouth once daily. MEDICAL SUPPLY KA for right lower extremity. acetaminophen (TYLENOL) 500 mg tablet Take 2 tablets by mouth every 8 hours as needed for Pain or Fever. aspirin 81 mg chewable tablet Take 1 tablet by mouth once daily. Ascorbic Acid (VITAMIN C) 1,000 mg tablet Take 1 tablet by mouth twice daily. Patient Entered Questionnaires 01/16/2022 07/13/2022 03/01/2023 Spine Questions Pain Location: Lower back Lower back Lower back Pain Duration: 1 to 5 years 1 to 5 years 1 to 5 years Pain over last 6 months: Less than half the days in the past 6 months Less than half the days in the past 6 months Every day or nearly every day in the past 6 months Symptoms from neck/cervical spine: Yes No No Employment Status: Retired Retired Retired Involved in law suit/legal claim: No No 07/28/2020 Spine Red Flags Any type of cancer: No Unexplained fever: No Bowel or bladder disfunction: No Unintentional weight loss: No 05/14/2021 08/12/2021 01/16/2022 Neck Questionnaires Benzel Modified LISA Score Incomplete Incomplete 13 (Moderate Myelopathy Symptoms) 07/09/2020 Low Back Pain Questionnaires STarT Risk Score 5 (High risk for prolonged disability) STarT Distress Score 4 STarT Total Score 8 SANDEEP Score 53.33 (Severe disability) PROMIS Score Percentiles 04/12/2023 06/24/2023 07/23/2023 Physical Health Physical Function Percentile 4 7 8 Pain Interference Percentile 18* 01/16/2022 07/13/2022 03/01/2023 PROMIS SOCIAL ROLE SCORE Social Role Satisfaction Percentile 34 21* 18* 08/22/2023 09/20/2023 12/28/2023 PROMIS Global Health Scale Physical Health Percentile 10 15 31 Mental Health Percentile 26* 43 53 Percentiles provide an indication of how the patient's score ranks in relation to the general population. Higher percentile rankings indicate better function/quality of life. 50th percentile is the average of the general population and indicates half of respondents had a worse score. Depression Screenin07/13/2022 03/01/2023 06/09/2023 PHQ-9 Score 0 2 0 07/13/2022 03/01/2023 06/09/2023 PHQ-9 Self-harm Question Question 9 Not at all Not at all Not at all PHQ-9 Self-Harm (Item 9) response options: 0 Not at all 1 Several days 2 More than half the days 3 Nearly every day PHQ-9 Levels: 0-4 No to mild depression 5-9 Mild depression 10-14 Moderate depression 15-19 Moderately severe depression 20-27 Severe depression OBJECTIVE: PHYSICAL EXAM: Unchanged from prior Significant positive balance Non dermatomal numbness in legs ASSESSMENT/PLAN (M41.9) Scoliosis of lumbar spine, unspecified scoliosis type (primary encounter diagnosis) Javier Bond is doing ok from his 3-1 fusion. [facility].. I reviewed the information obtained and documented by the fellow. I examined the patient and evaluated all available films and pertinent documents. We discussed the case and I agree with the plans asoutlined in this note. SIGNATURE: Aris Baeza MD PATIENT NAME: Javier Bond DATE: March 13, 2024 TIME: 2:22 PM PAGER: documented in this encounterChillic[facility]06-18-2024 History of Present illness Narrative* Mila Fregoso RT(R) - 03/13/2024 12:50 PM EDT Radiology Service Progress Note PATIENT NAME: Javier Bond DATE OF SERVICE: March 13, 2024 TIME: 1:42 PM PATIENT IDENTITY VERIFICATION COMPLETED USING TWO (2) IDENTIFIERS: Name and Date of confirmedby patient verbally and Name and Date of confirmed by identification band. FALL SCREENING: Has the patient had 2 falls in the last year or 1 fall with injury or currently using an Ambulatory Assistive Device (Walker, Cane, Wheelchair, Crutches, etc.)? Yes, Patient High Riskfor Falls What interventions were put in place to prevent falls during this visit? Yellow "Falls Risk Wristband" Applied, Offered Assistance with Transfers/Clothing, Instructed Patient to Remain Seated (Not onExam Table) Until Exam, Increased Observations by Caregivers, and Patient Refused Interventions/Assistance PATIENT NEEDED TO HOLD ON TO HIS WALKER DURING EXAM PATIENT GENDER DATA: Male PATIENT RELEVANT IMPLANT DATA REVIEWED: Yes PATIENT PRESENTS WITH AN IMPLANTABLE OR ATTACHED BLOW PIT OPERATOR: No RADIOLOGY DEPARTMENT: General X-ray: Exam(s) Completed: Spine X-Ray(s): Scoliosis Series PERIPHERAL IV DATA: Not applicable SIGNED BY: RT Mandeep(R) March 13, 2024 1:42 PM documented in this encounterChillic[facility]06-[facility]24 Telephone encounter Note * Telephone Encounter - Suzette Garcia MA - 03/01/2024 1:12 PM EDT Patients informed and verbalized understanding. Suzette Garcia MA [facility]06-06-2024 Miscellaneous Notes* Telephone Encounter - Suzette Garcia MA - 03/01/2024 1:12 PM EDT Patients informed and verbalized understanding. Suzette Garcia MA * Telephone Encounter - Francisco Bahena MD - 03/01/2024 12:50 PM EDT Let know all of his stool studies so far have been negative. The only one pending is the stoolfast level. If normal we will not call. documented in this encounterChillicothe [facility]06-06-2024 Telephone encounter Note * Telephone Encounter - Francisco Bahena MD - 03/01/2024 12:50 PM EDT Let know all of his stool studies so far have been negative. The only one pending is the stoolfast level. If normal we will not call. [facility] Telephone encounter Note* Telephone Encounter - Yash Monroe MA - 02/27/2024 8:02 AM EDT Prescription Refill Information The patient has been identified by name and date of : Yes Caregiver verified no other encounters exist for this prescription request: Yes Caregiver confirmed with patient/requestor that no other refills are due, in the near future, with this provider at this time: Yes The last office visit in the department: 11/2023 Does the patient have a future office visit with this provider/department: Yes 05/2024 Last refill: 11/2023 should have gotten his last refill Requested Prescriptions Pending Prescriptions Disp Refills atorvastatin (LIPITOR) 10 mg tablet 90 tablet 1 Sig: Take 1 tablet by mouth daily at bedtime. For cholesterol. Yash Monroe MA February 27, 2024 8:02 AM [facility] Miscellaneous Notes* Telephone Encounter - Yash Monroe MA - 02/27/2024 8:02 AM EDT Prescription Refill Information The patient has been identified by name and date of : Yes Caregiver verified no other encounters exist for this prescription request: Yes Caregiver confirmed with patient/requestor that no other refills are due, in the near future, with this provider at this time: Yes The last office visit in the department: 11/2023 Does the patient have a future office visit with this provider/department: Yes 05/2024 Last refill: 11/2023 should have gotten his last refill Requested Prescriptions Pending Prescriptions Disp Refills atorvastatin (LIPITOR) 10 mg tablet 90 tablet 1 Sig: Take 1 tablet by mouth daily at bedtime. For cholesterol. Yash Monroe MA February 27, 2024 8:02 AM documented in [facility] Instructions* Patient Instructions* Francisco Bahena MD - 02/23/2024 11:01 AM EDT Stop the Aricept (Donepezil) and then let DR. Bahena Know how he is dong on Tuesday02/27/2024. No stool softners. documented in this encounterCh[facility] Nurse Note* Suzette Garcia MA - 02/23/2024 10:22 AM EDT Constant, explosive diarrhea X 2 months. Loose stools at least every day. Fecal urgency. Denies fecal incontinence. [facility] Note* Suzette Garcia MA - 02/23/2024 10:22 AM EDT Constant, explosive diarrhea X 2 months. Loose stools at least every day. Fecal urgency. Denies fecal incontinence. documented in this encounterCh[facility]05-30-[facility]24 History of Present illness Narrative* Francisco Bahena MD - 02/23/2024 10:20 AM EDT Chief Complaint No chief complaint on file. HPI Javier Bond is a 83 year old male who presents here today for diarrhea for 2 months. Patient with hx of HTN, GERD, BPH, chronic back pain, Depression, unstable gait, osteoporosis, and those as below Back in November patient had mentioned that he had difficulty starting his BM's and then would have very loose stools. We discussed increased fiber and per they had gotten his fiber up to 25-30 grams a day and was doing well when I saw him in December. In early January we did increase his Aricept to 10 mg a day. He is on Dupixent but has been on this since the first of the year and his dosing was cut back from every 2 weeks to every 3 weeks. The stool has been darker. No gross blood. Has a lot of gurgling and when this starts he needs to get to the bathroom shortly. He still has the LLQ pain and can not say if that is worse. No vomiting. Stool has had a strong odor and dark in color. He is on doxy 20 mg twice a day for his rosacea and has been on this for several years. Past medical history, appointments, medications, allergies reviewed. Previous Medical History PAST MEDICAL HISTORY Diagnosis Date Abnormal SPEP 12/14/2022 Advance directive discussed with patient 10/04/2022 Discussed 09/2022 Anemia, chronic disease 08/25/2023 Hg runs 10-12.7 Arthritis Benign intracranial hypertension 11/30/2002 Bilateral carotid artery stenosis 12/03/2020 US 08/2020: Rt 20-40%, Lt 0-20% 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 Cervical spondylosis without myelopathy 06/27/2023 Chronic constipation 12/03/2020 Compression fracture of third lumbar vertebra (HCC) 11/05/2019 Degenerative lumbar spinal stenosis 12/15/2020 Dementia without behavioral disturbance (HCC) 12/23/2023 Dementia without behavioral disturbance (HCC) 12/23/202310/2023: w/u ok, patient initially declined med management but changed his mind and stated Aricpet mid 11/2023. 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/24/2022 S/p removal 08/2022 Essential hypertension, benign Essential tremor 11/21/2023 Family history of malignant neoplasm of gastrointestinal tract GERD (gastroesophageal reflux disease) 03/25/2009 Hiatal hernia 06/09/2022 History of compression fracture of spine 11/05/2019 Hypercalciuria, idiopathic 02/11/2020 Hypertrophy of prostate without urinary obstruction and other lower urinary tract symptoms (LUTS) Ilioinguinal neuralgia of left side 09/27/2019 Internal hemorrhoids without mention of complication Living will in place 10/04/2022 DPA: Peter Lumbar degenerative disc disease 09/14/2012 Lumbar radiculopathy 07/03/2020 Medicare annual wellness visit, subsequent 09/10/2021 Medicare Part B: Not able to find Last done: 09/10/2021 Memory deficits 11/21/202310/2023: w/u ok, patient declined med management Nephrolithiasis 07/04/2007 Oropharyngeal dysphagia 12/25/2020 Osteoporosis 01/28/2020 Other specified anemias 03/16/2022 Acute blood loss 11/2020 (post surgery) Peripheral edema 05/21/2022 Primary osteoarthritis of both first carpometacarpal joints 05/04/2018 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 09/09/2015 Rosacea 09/09/2015 S/P lumbar spinal fusion 12/15/2020 Sepsis due to Gram-negative organism with septic shock (HCC) 12/17/2020 Proteus mirabilis UTI Situational anxiety 06/27/2019 Situational depression 02/27/2021 Spondylosis of lumbar region without myelopathy or radiculopathy 03/10/2018 Thyroid nodule 12/03/[address] Zacarias Unstable gait 05/21/2021 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 05/11/2021 Previous Surgical History PAST SURGICAL HISTORY Procedure Laterality Date ARTHRP INTERPOS INTERCARPAL/METACARPAL JOINTS Left 05/24/2018 Left thumb CMC arthroplasty with LRTI and MCP pinning of left thumb COLONOSCOPY FLX DX W/COLLJ SPEC WHEN PFRMD 07/17/08, 2012 COLONOSCOPY FLX DX W/COLLJ SPEC WHEN PFRMD 03/28/2019 WCAdriana-Juana Cenagil CYSTO.PANENDO 02/20/2021 stent removal EGD TRANSORAL BIOPSY SINGLE/MULTIPLE 12/26/2008 ESOPHAGOGASTRODUODENOSCOPY TRANSORAL DIAGNOSTIC 03/18/2020 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 PERIPHERAL NERVE BLOCK (MOD 59) Bilateral 11/01/2016, 03/28/2018 bilateral lumbar facet medial branch nerve block (l4-5, L5-S1) REMOVAL OF HEMORRHOID CLOT 06/2017 SKIN BIOPSY HX SPINAL FUSION,ANT,EA ADNL LEVEL 2001 TONSILLECTOMY HX Childhood TRANSURETHRAL ELEC-SURG PROSTATECTOM 01/14/2023 XCAPSL CTRC RMVL INSJ IO LENS PROSTH W/O ECP Bilateral 08/25/2016 Family History FAMILY HISTORY Problem Relation Age of Onset Cancer Mother lung Cancer Father colon Cancer Brother lymphoma Patient Allergies ALLERGIES Allergen Reactions Contrast Dye Hives Finacea [Azelaic Ac* Rash Bactrim [Sulfametho* Unknown Bextra [Valdecoxib] Unknown Cardura [Doxazosin * Unknown Ciprofloxacin Unknown Cytotec [Misoprosto* Unknown Fosamax [Alendronat* Vomiting heartburn, vomiting Gabapentin Mental Status Change Ketoconazole Unknown Levofloxacin Other: See Comments Pseudomonas Mobic [Meloxicam] Unknown Nitrofurantoin Other: See Comments Per , "he didn't feel well" - unsure of reaction Nsaids (Non-Steroid* Unknown GI UPSET Relafen [Nabumetone] Unknown Terbinafine GI Upset Current Medications Current Outpatient Medications on File Prior to Visit Medication Sig donepezil (ARICEPT) 10 mg tablet Take 1 tablet by mouth daily at bedtime. furosemide (LASIX) 20 mg tablet Take 1 tablet by mouth once daily. Methenamine Hippurate (HIPREX) 1 gram tablet Take 1 tablet by mouth two times a day. pantoprazole DR (PROTONIX) 40 mg tablet Take 1 tablet by mouth two times a day. atorvastatin (LIPITOR) 10 mg tablet Take 1 tablet by mouth daily at bedtime. For cholesterol. hydroCHLOROthiazide 12.5 mg tablet Take 1 tablet by mouth once daily. meclizine HCl (ANTIVERT ORAL) Take by mouth as needed. dupilumab 300 mg/2 mL subcutaneous syringe (MazreeIXiLinc) Inject 300 mg subcutaneously every 2 weeks. lisinopril (ZESTRIL) 5 mg tablet Take 1 tablet by mouth once daily. traZODone (DESYREL) 50 mg tablet Take 0.5 tablets by mouth daily at bedtime. methocarbamol (ROBAXIN) 500 mg tablet Take 500 mg by mouth once daily as needed. fexofenadine (HESHAM ALLERGY) 180 mg tablet Take one tablet one to two times a day Ascorbic Acid (VITAMIN C) 1,000 mg tablet Take 1 tablet by mouth twice daily. d-mannose powd Take by mouth once daily. triamcinolone acetonide (KENALOG) 0.1 % cream Apply 1 application to affected area as directed. Docusate Sodium 250 mg capsule Take 100 mg by mouth twice daily. doxycycline 20 mg tablet Take 20 mg by mouth twice daily. multivit-min/iron/folic acid/K (ADULTS MULTIVITAMIN ORAL) Take 1 tablet by mouth once daily. MEDICAL SUPPLY KAFO for right lower extremity. acetaminophen (TYLENOL) 500 mg tablet Take 2 tablets by mouth every 8 hours as needed for Pain or Fever. aspirin 81 mg chewable tablet Take 1 tablet by mouth once daily. No current facility-administered medications on file prior to visit. Social History Social History Tobacco Use Smoking status: Former Types: Cigarettes Quit date: 06/24/1963 Years since quittin.7 Smokeless tobacco: Never Tobacco comments: quit in his 20's - smoked socially while in college Vaping Use Vaping Use: Never used Substance Use Topics Alcohol use: Yes Comment: 1-2 drinks in A MONTH Drug use: No Review of Symptoms REVIEW OF SYSTEMS See HPI EXAM: BP 143/69 Pulse 76 Ht 184.2 cm (6' 0.5") Wt 73.5 kg (162 lb) BMI 21.67 kg/m General Appearance: Well appearing, in no acute distress, well-hydrated, well nourished.. Abdomen: Abdomen soft, non-distended. Has his chronic mild LLQ tenderness no guarding or rebound pain. Bowel sounds normal. No masses, organomegaly. Health Maintenance List RSV Vaccine(1 - 1-dose 60+ series) due on 12/22/2024 Covid-19 Vaccine(2022-24 season) due on 03/21/2024 Diabetes Screening due on 11/22/2026 DTaP,Tdap,Td Vaccine(4 - Td or Tdap) due on 03/13/2028 Influenza Vaccine Completed Advance Directive Discussion Completed Shingrix Vaccine Completed Pneumococcal Vaccine: 65+ Completed Colorectal Cancer Screening Discontinued Data reviewed A/P ASSESSMENT/PLAN: 1. Diarrhea, unspecified type - ICD9: 787.91, ICD10: R19.7 - advised to stop the Aricept and give me an update next Tuesday. If better will have him restart the Aricept back at 5 mg since did ok with that. Check - FECAL LACTOFERRIN/LEUKOCYTES - FAT, FECAL QUAL - CRYPTOSPORIDIUM AND GIARDIA ANTIGENS BY EIA - ENTERIC BACTERIAL PANEL BY PCR - C. DIFFICILE PCR I spent a total of 32 minutes on the date of the service which included preparing to see the patient, [id number] patient care, completing clinical documentation, performing a medically appropriate examination, counseling and educating the patient/family/caregiver and ordering medications, tests, or procedures. Francisco Bahena MD documented in this encounterCh[facility]05-[facility]24 Telephone encounter Note * Telephone Encounter - Malissa Xiao OCCA - 02/22/2024 8:34 AM EDT Please leave encounter open until patient reads message with new instructions. Thank you. JIMMY Blair [facility] Miscellaneous Notes* Telephone Encounter - Malissa Xiao OCCA - 02/22/2024 8:34 AM EDT Please leave encounter open until patient reads message with new instructions. Thank you. JIMMY Blair * Telephone Encounter - Cherelle Benavides PA-C - 02/21/2024 1:46 PM EDT Let patient know I sent in the 10mg dose so he only has to take 1 pill. The following approved medication requests have been transmitted electronically. Requested Prescriptions Signed Prescriptions Disp Refills donepezil (ARICEPT) 10 mg tablet 90 tablet 1 Sig: Take 1 tablet by mouth daily at bedtime. Authorizing Provider: CHERELLE BENAVIDES PA-C * Telephone Encounter - Malissa Xiao OCCA - 02/21/2024 12:48 PM EDT Patient requesting 90 day supply. Patient has been identified by name and date of : Yes Patient phones for refill(s): Requested Prescriptions Pending Prescriptions Disp Refills donepezil (ARICEPT) 5 mg tablet 90 tablet 1 Sig: Take 2 tablets by mouth daily at bedtime. Date of last office visit in primary care: 12/23/2023 Date of next office visit in primary care: 06/25/2024 Please advise. Thank you. JIMMY Blair. documented in this encounterCh[facility]05-28-2024 Telephone encounter Note * Telephone Encounter - Cherelle Benavides PA-C - 02/21/2024 1:46 PM EDT Let patient know I sent in the 10mg dose so he only has to take 1 pill. The following approved medication requests have been transmitted electronically. Requested Prescriptions Signed Prescriptions Disp Refills donepezil (ARICEPT) 10 mg tablet 90 tablet 1 Sig: Take 1 tablet by mouth daily at bedtime. Authorizing Provider: CHERELLE BENAVIDES PA-C [facility] Telephone encounter Note* Telephone Encounter - Malissa Xiao OCCA - 02/21/2024 12:48 PM EDT Patient requesting 90 day supply. Patient has been identified by name and date of : Yes Patient phones for refill(s): Requested Prescriptions Pending Prescriptions Disp Refills donepezil (ARICEPT) 5 mg tablet 90 tablet 1 Sig: Take 2 tablets by mouth daily at bedtime. Date of last office visit in primary care: 12/23/2023 Date of next office visit in primary care: 06/25/2024 Please advise. Thank you. JIMMY Blair. [facility] Note* Addendum Note - Francisco Bahena MD - 02/21/2024 12:41 PM EDTAddended by: FRANCISCO BAHENA on: 02/21/2024 12:41 PM Modules accepted: Orders [facility] Miscellaneous Notes* Addendum Note - Francisco Bahena MD - 02/21/2024 12:41 PM EDTAddended by: FRANCISCO BAHENA on: 02/21/2024 12:41 PM Modules accepted: Orders * Telephone Encounter - Francisco Bahena MD - 02/21/2024 12:40 PM EDT The following approved medication requests have been transmitted electronically. Requested Prescriptions Signed Prescriptions Disp Refills furosemide (LASIX) 20 mg tablet 90 tablet 1 Sig: Take 1 tablet by mouth once daily. Francisco Bahena MD documented in this encounterCh[facility]05-28-2024 Telephone encounter Note * Telephone Encounter - Francisco Bahena MD - 02/21/2024 12:40 PM EDT The following approved medication requests have been transmitted electronically. Requested Prescriptions Signed Prescriptions Disp Refills furosemide (LASIX) 20 mg tablet 90 tablet 1 Sig: Take 1 tablet by mouth once daily. Francisco Bahena MD [facility] Telephone encounter Note* Telephone Encounter - Francisco Bahena MD - 02/01/2024 8:41 AM EDT The following approved medication requests have been transmitted electronically. Requested Prescriptions Signed Prescriptions Disp Refills donepezil (ARICEPT) 5 mg tablet 90 tablet 1 Sig: Take 2 tablets by mouth daily at bedtime. Francisco Bahena MD [facility] Miscellaneous Notes* Telephone Encounter - Francisco Bahena MD - 02/01/2024 8:41 AM EDT The following approved medication requests have been transmitted electronically. Requested Prescriptions Signed Prescriptions Disp Refills donepezil (ARICEPT) 5 mg tablet 90 tablet 1 Sig: Take 2 tablets by mouth daily at bedtime. Francisco Bahena MD documented in this encounterCh[facility]04-30-2024 Telephone encounter Note * Telephone Encounter - Paulette Summers MA - 01/24/2024 9:07 AM EDT Pt notified. Paulette Summers MA [facility] Miscellaneous Notes* Telephone Encounter - Paulette Summers MA - 01/24/2024 9:07 AM EDT Pt notified. Paulette Summers MA * Telephone Encounter - Francisco Bahena MD - 01/23/2024 10:05 PM EDT Let patient know US of thyroid shows nodule in left lobe that is pretty stable from 2020 with minimal change. Recommendation is repeat US in 1,3, and 5 years if stable. documented in this encounterCh[facility]04-29-2024 Telephone encounter Note * Telephone Encounter - Francisco Bahena MD - 01/23/2024 10:05 PM EDT Let patient know US of thyroid shows nodule in left lobe that is pretty stable from 2020 with minimal change. Recommendation is repeat US in 1,3, and 5 years if stable. [facility] Telephone encounter Note* Telephone Encounter - Yash Monroe MA - 01/23/2024 9:30 AM EDT Patient notified and voiced understanding. Yash Monroe MA [facility] Miscellaneous Notes* Telephone Encounter - Yash Monroe MA - 01/23/2024 9:30 AM EDT Patient notified and voiced understanding. Yash Monroe MA * Telephone Encounter - Francisco Bahena MD - 01/20/2024 4:53 PM EDT Let patient know the US of his neck arteries shows only mild narrowing. documented in this encounterCh[facility]04-26-2024 Telephone encounter Note * Telephone Encounter - Francisco Bahena MD - 01/20/2024 4:53 PM EDT Let patient know the US of his neck arteries shows only mild narrowing. [facility] History of Present illness Narrative* Gracy Fontaine RDMS - 01/20/2024 1:45 PM EDT Radiology Service Progress Note PATIENT NAME: Javier Bond DATE OF SERVICE: January 20, 2024 TIME: 2:16 PM PATIENT IDENTITY VERIFICATION COMPLETED USING TWO (2) IDENTIFIERS: Name and Date of confirmedby patient verbally. FALL SCREENING: Has the patient had 2 falls in the last year or 1 fall with injury or currently using an Ambulatory Assistive Device (Walker, Cane, Wheelchair, Crutches, etc.)? Yes, Patient High Riskfor Falls What interventions were put in place to prevent falls during this visit? Offered Assistance with Transfers/Clothing and Increased Observations by Caregivers PATIENT GENDER DATA: Male PATIENT RELEVANT IMPLANT DATA REVIEWED: Not Applicable PATIENT PRESENTS WITH AN IMPLANTABLE OR ATTACHED BLOW PIT OPERATOR: No RADIOLOGY DEPARTMENT: Ultrasound PERIPHERAL IV DATA: Not applicable SIGNED BY: Gracy Fontaine RDMS January 20, 2024 2:16 PM documented in this encounterChillic[facility]04-23-2024 Telephone encounter Note * Telephone Encounter - Trinidad Ruiz LPN - 01/17/2024 10:13 AM EDT Called and spoke to patient and (Notified that [facility] are not monitored 24-7 or on the weekends) No more blood since yesterday Stated urine was "prune juice" color, today it is more "yellow" On baby ASA, no other blood thinners As passed little clots as well C/o mild left groin discomfort which has now dissipated Hx KST, last imaging was CT in August Recent UTI, finished bactrim Friday 01/12 Patient will submit UC to r/o UTI Discussed increasing water intake Discussed with Dr. Coles Will await UC results before deciding to proceed [facility] Miscellaneous Notes* Telephone Encounter - Trinidad Ruiz LPN - 01/17/2024 10:13 AM EDT Called and spoke to patient and (Notified that [facility] are not monitored 24-7 or on the weekends) No more blood since yesterday Stated urine was "prune juice" color, today it is more "yellow" On baby ASA, no other blood thinners As passed little clots as well C/o mild left groin discomfort which has now dissipated Hx KST, last imaging was CT in August Recent UTI, finished bactrim Friday 01/12 Patient will submit UC to r/o UTI Discussed increasing water intake Discussed with Dr. Coles Will await UC results before deciding to proceed documented in this encounterCh[facility]04-12-2024 Miscellaneous Notes* Telephone Encounter - Daniela Lazar RN - 01/06/2024 12:30 PM EDT Spoke to ralph Morales. Pt instructed to take 14 day course of Bactrim, then start Hiprex after. Daniela Lazar GRAVEL SCREENER * Telephone Encounter - Corrie Amaro - 01/06/2024 12:05 PM EDT Pharmacu called and stated that there is an interaction with Bactrim DS and hiprex. Stated that taking both can increases risk of urinary calcification. Pharmacy wants to know when the pt should start Hiprex. Pt is on a 10 day course of Bactrim documented in this encounterCh[facility]ic[facility]04-12-2024 History of Present illness Narrative* Yun Coles MD - 01/06/2024 11:38 AM EDT [facility] RECONSTRUCTIVE SURGERY HISTORY OF PRESENT ILLNESS: Javier Bond is a 83 year old F female here today for a follow up regarding recurrent UTI. Underwent TURP 01/14/23 for incomplete bladder emptying and recurrent UTIs. When I last saw him 06/03/23 we discontinued methenamine. Since then dev recurrent UTIs again and has been hospitalized for UTI. PVRs lower more recently. Culture Results - Past 1 Year Culture 01/10/2023 >=100,000 CFU/ml Escherichia coli ! <10,000 CFU/ml Lactose positive gram negative bacilli ! 01/21/2023 Mixed microbiota: <10,000 CFU/ml Lactose negative gram negative bacilli ! <10,000 CFU/ml Lactose positive gram negative bacilli ! 09/22/2023 >=100,000 CFU/ml Escherichia coli ! 10/13/2023 >=100,000 CFU/ml Escherichia coli ! 10/21/2023 No growth (<1,000 CFU/ml) 10/27/2023 <10,000 CFU/ml Mixed microbiota ! 12/28/2023 >=100,000 CFU/ml Escherichia coli ! CT A/P noncon 08/30/23 IMPRESSION: Examination is limited by streak artifact from spinal fixation hardware. Left-sided nephrolithiasis, unchanged. No hydronephrosis. Small/moderate hiatal hernia, unchanged. There is no abdominal wall or inguinal hernia. HISTORIES: PAST MEDICAL HISTORY PAST MEDICAL HISTORY Diagnosis Date Abnormal SPEP 12/14/2022 Advance directive discussed with patient 10/04/2022 Discussed 09/2022 Anemia, chronic disease 08/25/2023 Hg runs 10-12.7 Arthritis Benign intracranial hypertension 11/30/2002 Bilateral carotid artery stenosis 12/03/2020 US 08/2020: Rt 20-40%, Lt 0-20% 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 Cervical spondylosis without myelopathy 06/27/2023 Chronic constipation 12/03/2020 Compression fracture of third lumbar vertebra (HCC) 11/05/2019 Degenerative lumbar spinal stenosis 12/15/2020 Dementia without behavioral disturbance (HCC) 12/23/2023 Dementia without behavioral disturbance (HCC) 12/23/202310/2023: w/u ok, patient initially declined med management but changed his mind and stated Aricpet mid 11/2023. 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/24/2022 S/p removal 08/2022 Essential hypertension, benign Essential tremor 11/21/2023 Family history of malignant neoplasm of gastrointestinal tract GERD (gastroesophageal reflux disease) 03/25/2009 Hiatal hernia 06/09/2022 History of compression fracture of spine 11/05/2019 Hypercalciuria, idiopathic 02/11/2020 Hypertrophy of prostate without urinary obstruction and other lower urinary tract symptoms (LUTS) Ilioinguinal neuralgia of left side 09/27/2019 Internal hemorrhoids without mention of complication Living will in place 10/04/2022 DPA: Peter Lumbar degenerative disc disease 09/14/2012 Lumbar radiculopathy 07/03/2020 Medicare annual wellness visit, subsequent 09/10/2021 Medicare Part B: Not able to find Last done: 09/10/2021 Memory deficits 11/21/202310/2023: w/u ok, patient declined med management Nephrolithiasis 07/04/2007 Oropharyngeal dysphagia 12/25/2020 Osteoporosis 01/28/2020 Other specified anemias 03/16/2022 Acute blood loss 11/2020 (post surgery) Peripheral edema 05/21/2022 Primary osteoarthritis of both first carpometacarpal joints 05/04/2018 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 09/09/2015 Rosacea 09/09/2015 S/P lumbar spinal fusion 12/15/2020 Sepsis due to Gram-negative organism with septic shock (HCC) 12/17/2020 Proteus mirabilis UTI Situational anxiety 06/27/2019 Situational depression 02/27/2021 Spondylosis of lumbar region without myelopathy or radiculopathy 03/10/2018 Thyroid nodule 12/03/[address] 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 PERIPHERAL NERVE BLOCK (MOD 59) Bilateral 11/01/2016, 03/28/2018 bilateral lumbar facet medial branch nerve block (l4-5, L5-S1) REMOVAL OF HEMORRHOID CLOT 06/2017 SKIN BIOPSY HX SPINAL FUSION,ANT,EA ADNL LEVEL 2001 TONSILLECTOMY HX Childhood TRANSURETHRAL ELEC-SURG PROSTATECTOM 01/14/2023 XCAPSL CTRC RMVL INSJ IO LENS PROSTH W/O ECP Bilateral 08/25/2016 FAMILY HISTORY FAMILY HISTORY Problem Relation Age of Onset Cancer Mother lung Cancer Father colon Cancer Brother lymphoma SOCIAL HISTORY Social History Tobacco Use Smoking status: Former Types: Cigarettes Quit date: 06/24/1963 Years since quittin.5 Smokeless tobacco: Never Tobacco comments: quit in his 20's - smoked socially while in college Vaping Use Vaping Use: Never used Substance Use Topics Alcohol use: Yes Comment: 1-2 drinks in A MONTH Drug use: No MEDICATIONS: Current Outpatient Medications Medication Sig sulfamethoxazole-trimethoprim (BACTRIM DS) 800-160 mg per tablet Take 1 tablet by mouth two times aday for [address] (PROTONIX) 40 mg tablet Take 1 tablet by mouth two times a day. donepezil (ARICEPT) 5 mg tablet Take 1 tablet by mouth daily at bedtime. atorvastatin (LIPITOR) 10 mg tablet Take 1 tablet by mouth daily at bedtime. For cholesterol. hydroCHLOROthiazide 12.5 mg tablet Take 1 tablet by mouth once daily. meclizine HCl (ANTIVERT ORAL) Take by mouth as needed. dupilumab 300 mg/2 mL subcutaneous syringe ([employer]) Inject 300 mg subcutaneously every 2 weeks. lisinopril (ZESTRIL) 5 mg tablet Take 1 tablet by mouth once daily. traZODone (DESYREL) 50 mg tablet Take 0.5 tablets by mouth daily at bedtime. furosemide (LASIX) 20 mg tablet Take 1 tablet by mouth once daily. methocarbamol (ROBAXIN) 500 mg tablet Take 500 mg by mouth once daily as needed. d-mannose powd Take by mouth once daily. triamcinolone acetonide (KENALOG) 0.1 % cream Apply 1 application to affected area as directed. doxycycline 20 mg tablet Take 20 mg by mouth twice daily. multivit-min/iron/folic acid/K (ADULTS MULTIVITAMIN ORAL) Take 1 tablet by mouth once daily. MEDICAL SUPPLY KAFO for right lower extremity. acetaminophen (TYLENOL) 500 mg tablet Take 2 tablets by mouth every 8 hours as needed for Pain or Fever. aspirin 81 mg chewable tablet Take 1 tablet by mouth once daily. cephALEXin (KEFLEX) 500 mg capsule Take 1 capsule by mouth three times a day. (Patient not taking: Reported on 11/21/2023) fexofenadine (HESHAM ALLERGY) 180 mg tablet Take one tablet one to two times a day Ascorbic Acid (VITAMIN C) 1,000 mg tablet Take 1 tablet by mouth twice daily. Docusate Sodium 250 mg capsule Take 100 mg by mouth twice daily. No current facility-administered medications for this visit. CURRENT ALLERGIES: Allergies As of Date: 01/06/2024 Allergen Noted Reaction CONTRAST DYE 03/24/2009 Hives FINACEA [AZELAIC ACID] 09/28/2017 Rash BACTRIM [SULFAMETHOXAZOLE-TRIMETH*06/02/2005 Unknown BEXTRA [VALDECOXIB] 06/02/2005 Unknown CARDURA [DOXAZOSIN MESYLATE] 06/02/2005 Unknown CIPROFLOXACIN 11/30/2002 Unknown CYTOTEC [MISOPROSTOL] 06/02/2005 Unknown FOSAMAX [ALENDRONATE SODIUM] 01/04/2020 Vomiting GABAPENTIN 01/28/2021 Mental Status Change KETOCONAZOLE 09/06/2008 Unknown LEVOFLOXACIN 01/26/2012 Other: See Comments MOBIC [MELOXICAM] 06/02/2005 Unknown NITROFURANTOIN 05/15/2021 Other: See Comments NSAIDS (NON-STEROIDAL ANTI-INFLAM*11/30/2002 Unknown RELAFEN [NABUMETONE] 06/02/2005 Unknown TERBINAFINE 10/02/2009 GI Upset Fully Assessed 01/06/2024 PHYSICAL EXAM: General: No acute distress, well appearing IMPRESSION: 83 yo M with history of BPH with bladder remodeling, incomplete emptying and recurrent UTIs s/p TURP 01/14/23 now with recurrence of UTIs. Extend Bactrim to 14d course Restart methenamine BID after completing Bactrim If persistent UTIs, will cysto and likely plan URS/LL for possible stone colonization All questions and concerns were addressed. Yun Coles MD [facility] Miscellaneous Notes* Telephone Encounter - Bertha Adrian RN - 01/03/2024 5:28 PM EDT Called and spoke with patients to inform her of urine culture results and that an antibiotic called Bactrim was sent to patients pharmacy to begin taking. Patients voiced understanding Bertha Adrian RN January 03, 2024 5:29 PM * Telephone Encounter - Shauna Scott - 01/03/2024 9:19 AM EDT Patient calling in regards to recent urine culture and dip results please advise the patient with aphone call. [facility] Instructions* Patient Instructions* Angela Harry PA-C - 12/28/2023 1:57 PM EDT [facility] History of Present illness Narrative* Angela Harry PA-C - 12/28/2023 1:36 PM EDT Images from the original note were not included. UROLOGY NOTE Chief complaint: kidney stone follow up Javier Bond is a 83 year old male who presents today for kidney stone management and prevention counseling. Interval hx January 29, 2022 - Emphasis on increasing fluid intake and citrus - Discussed video urodynamics as recommended by Dr. Coles before proceeding with surgical intervention. Patient would like to defer at this time but will reach out if he decides otherwise. - New imaging and [facility] in about 1 year for stone monitoring Interval hx December 28, 2023 Patient returns to clinic having seen Yolanda Victoria CNP for recurrent UTIs in late Sep and early Oct, with several instances of contact with Dr. Coles (as well as TURP in 01/16). He returns today for known stone reassessment. No stone- related pain nor urinary sx. There is no height or weight on file to calculate BMI. PAST MEDICAL HISTORY Diagnosis Date Abnormal SPEP 12/14/2022 Advance directive discussed with patient 10/04/2022 Discussed 09/2022 Anemia, chronic disease 08/25/2023 Hg runs 10-12.7 Arthritis Benign intracranial hypertension 11/30/2002 Bilateral carotid artery stenosis 12/03/2020 US 08/2020: Rt 20-40%, Lt 0-20% 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 Cervical spondylosis without myelopathy 06/27/2023 Chronic constipation 12/03/2020 Compression fracture of third lumbar vertebra (HCC) 11/05/2019 Degenerative lumbar spinal stenosis 12/15/2020 Dementia without behavioral disturbance (HCC) 12/23/2023 Dementia without behavioral disturbance (HCC) 12/23/202310/2023: w/u ok, patient initially declined med management but changed his mind and stated Aricpet mid 11/2023. 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/24/2022 S/p removal 08/2022 Essential hypertension, benign Essential tremor 11/21/2023 Family history of malignant neoplasm of gastrointestinal tract GERD (gastroesophageal reflux disease) 03/25/2009 Hiatal hernia 06/09/2022 History of compression fracture of spine 11/05/2019 Hypercalciuria, idiopathic 02/11/2020 Hypertrophy of prostate without urinary obstruction and other lower urinary tract symptoms (LUTS) Ilioinguinal neuralgia of left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 Score 0 (0-4) minimal anxiety, (5-9) mild anxiety, (10-14) moderate anxiety, (15-21) severe anxiety PHQ-9: 06/09/2023 03/01/2023 07/13/2022 PHQ-9 Score 0 2 0 (0-4) minimal depression, (5-9) mild depression, (10-14) moderate depression, (15-19) moderately severe depression, (20-27) severe depression Diagnostic Studies: Relevant Imaging: MRI Spine Report MRI LUMBAR SPINE WO IVCON Exam End: 10/03/2020 1:53 PM (Final result) Narrative: * * *Final Report* * * DATE OF EXAM: Oct 03 2020 1:40PM STEPHANE 0303 - MRI LUMBAR SPINE WO IVCON / PROCEDURE REASON: Spinal stenosis of lumbar region with neurogenic claudication * * * * Physician Interpretation * * * * EXAMINATION: MRI LUMBAR SPINE WO IVCON CLINICAL HISTORY: Lumbar stenosis, low back pain TECHNIQUE: Routine lumbosacral spine MR protocol without gadolinium. MQ: [id number] COMPARISON: MR lumbar spine 01/19/2017 RESULT: Counting reference: Lumbosacral junction. For the purposes of this report, L4-5 is considered the level of the left iliac crest and L3-L4 is considered the level of the right iliac crest due to scoliosis and assume there are 5 lumbar-type vertebrae. Anatomic variant: None. Localizer images: Multiple perineural cysts noted in the thoracic spine science tutor images, incompletely evaluated, also seen on the prior MRI. Alignment: Again seen is severe dextrocurvature centered at L2. Stepwise grade 1 degenerative retrolisthesis of T12 on L1, L1-L2, L2-L3, L3-L4, and L4-5. Bone marrow signal/fracture: Type I degenerative change at L1-L2, L2-L3, L3-L4, and L4-L5. No evidence of pathologic marrow infiltration. No evidence of prior fracture. Conus: The conus is within normal limits of signal intensity and morphology. Sacral perineural cysts are incidentally noted, with the largest at the left S2 level measuring up to 1.9 cm. Paraspinal soft tissues: Paraspinal soft tissues are within normal limits. T11-T12: Canal foramina are patent. Disc degeneration with mild diffuse disc bulge noted. T12-L1: Canal and foramina are patent. Disc degeneration with mild diffuse disc bulge noted. L1-L2: There is disc degeneration with diffuse disc bulge and facet arthropathy causing mild left foraminal stenosis and mild canal narrowing eccentric to the left. L2-L3: There is disc degeneration with diffuse disc bulge and facet arthropathy causing mild canal narrowing eccentric to the left, and mild bilateral foraminal stenosis. L3-L4: There is disc degeneration with diffuse disc bulge and facet arthropathy causing mild to moderate canal narrowing eccentric to the right, and moderate to severe right foraminal stenosis. L4-L5: There is disc degeneration with diffuse disc bulge and facet arthropathy causing moderate right foraminal stenosis without significant canal narrowing. L5-S1: There is disc degeneration with diffuse disc bulge and facet arthropathy causing mild bilateral foraminal stenosis without significant canal narrowing. Sacrum and iliac wings: The visualized sacrum and iliac wings are within normal limits. Impression: IMPRESSION: Lumbar spondylosis as described mostly due to severe dextrocurvature, similar to the prior examination, worst at L3-L4 with mild to moderate canal narrowing eccentric to the right. Counting reference: Lumbosacral junction. For the purposes of this report, L4-5 is considered the level of the left iliac crest and L3-L4 is considered the level of the right iliac crest due to scoliosis and assume there are 5 lumbar-type vertebrae. Anatomic variant: None. If surgery is to be indicated, correlation for level with plain radiograph recommended. 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: BRIAN Transcribe Date/Time: Oct 03 2020 2:11P Dictated by : JOHNNIE SAINZ MD This examination was interpreted and the report reviewed and electronically signed by: JOHNNIE SAINZ MD on Oct 03 2020 2:16PM EST Electrodiagnostic Study (EMG): None Recent Labs: Creatinine Date Value Ref Range Status 11/22/2023 1.03 0.73 - 1.22 mg/dL Final No results found for: "EGFR" Glucose, Point of Care Date Value Ref Range Status 08/26/2022 102 (A) 74 - 99 mg/dL Final Comment: Location:[employer], [address] [place] [address], [facility] The Accu-Chek Inform II glucose meter has not been approved for testing on patients receiving intensive medical intervention or therapy and results from this point of care glucose test should not be used for patient management decisions in these cases. Inaccurate results may also occur from other interfering factors, such as N-acetylcysteine (blood concentrations of greater than 5mg/dL), galactose, extremes of hematocrit (<10 or >65), or high doses of ascorbic acid (vitamin C) greater than 3mg/dL. Consider alternate testing mechanisms (e.g. core lab, blood gas instrument) in the above situations. Current Medications, Past Medical History, Past Surgical History, Family History, Social History and Review of Systems: On today's date, noted above, I have confirmed and edited as necessary, the PFSH and ROS obtained by others. Physical Exam: 12/09/23 1256 Pulse: 76 Resp: 16 SpO2: 100% Physical Exam Vitals reviewed. Constitutional: General: He is not in acute distress. Appearance: He is not ill-appearing. HENT: Head: Normocephalic and atraumatic. Eyes: Conjunctiva/sclera: Conjunctivae normal. Cardiovascular: Pulses: Normal pulses. Pulmonary: Effort: Pulmonary effort is normal. No respiratory distress. Musculoskeletal: Cervical back: Tenderness present. Skin: General: Skin is warm and dry. Neurological: Mental Status: He is alert and oriented to person, place, and time. Psychiatric: Mood and Affect: Mood and affect normal. Behavior: Behavior normal. Behavior is cooperative. IMPRESSION: 83 year old male presents with complaint(s) of Minimal to no pain in his cervical spine. Patient stating the radiofrequency helped pretty much gave him 100% relief. Patient states he is doing well at this point and wants to be seen as needed. Diagnoses: (M47.812) Cervical spondylosis without myelopathy (primary encounter diagnosis) PLAN: Javier Bond would benefit from the following to reach personal goals for decreasing pain, improving function and work participation, and/or improving quality of life: Medications: No Changes - Continue Current Medications Interventional Procedures: None Studies: None Functional Confucianist: NONE Referrals: No additional considerations at present Follow-up: prn Depending on response to the above plan, consider: TBD Compliance and Clinic Policies Reviewed and/or Discussed Today: None Attribution: In addition to reviewing the information noted above, some elements copied from my most recent clinical note(s), including the physical exam (completed in entirety today), and the impression and plan sections, have been updated where appropriate. All reflect current medical decision making from today's date. Valeria Jimenez APRN.TIME SIGNAL WIRER Pain Management [facility] * Laura Cárdenas LPN - 12/09/2023 12:59 PM EDT Review of Systems Constitutional: Negative for activity change, chills, fever and unexpected weight change. Gastrointestinal: Negative for bowel retention or incontinence Genitourinary: Negative for difficulty urinating. Negative for bladder retention or incontinence Musculoskeletal: Positive for arthralgias and gait problem. Negative for back pain, joint swelling,myalgias, neck pain and neck stiffness. Neurological: Positive for numbness. Negative for weakness and headaches. Psychiatric/Behavioral: Negative for dysphoric mood, sleep disturbance and suicidal ideas. The patient is not nervous/anxious. documented in this encounterChillic[facility]03-04-2024 Miscellaneous Notes* Telephone Encounter - Yash Monroe MA - 11/28/2023 9:09 AM EST Patient has been identified by name and date of : Yes, Provider Dr Bahena Date 11/28/2023 Time9:10 am Requested Prescriptions Pending Prescriptions Disp Refills atorvastatin (LIPITOR) 10 mg tablet 90 tablet 1 Sig: Take 1 tablet by mouth daily at bedtime. For cholesterol. RX INSTRUCTIONS: Patient aware RX will be sent to pharmacy. No need to notify patient. Yash Monroe MA Christa 10/2023 Nov 11/2023 Last refill: 07/2023 documented in this encounterChillic[facility]03-01-2024 Miscellaneous Notes* Telephone Encounter - Francisco Bahena MD - 11/25/2023 3:53 PM EST Noted. * Telephone Encounter - Yash Monroe MA - 11/25/2023 3:44 PM EST Patient notified and voiced understanding. Patient indicated that he would let us know if he wants to start the medication. Yash Monroe MA * Telephone Encounter - Francisco Bahena MD - 11/25/2023 2:17 PM EST Let patient know his brain MRI was ok. Does he want to start taking a medication to see if this helps reduce his memory loss issues. If soIt would be Aricept 5 mg a day. documented in this encounterChillic[facility]03-01-2024 History of Present illness Narrative* Valeria Quintanilla, RT(R) - 11/25/2023 10:40 AM EST Radiology Service Progress Note PATIENT NAME: Javier Bond DATE OF SERVICE: November 25, 2023 TIME: 11:05 AM PATIENT IDENTITY VERIFICATION COMPLETED USING TWO (2) IDENTIFIERS: Name and Date of confirmedby patient verbally. FALL SCREENING: Has the patient had 2 falls in the last year or 1 fall with injury or currently using an Ambulatory Assistive Device (Walker, Cane, Wheelchair, Crutches, etc.)? Yes, Patient High Riskfor Falls What interventions were put in place to prevent falls during this visit? Instructed Patient to Callfor Help if Needed, Offered Assistance with Transfers/Clothing, Instructed Patient to Remain Seated(Not on Exam Table) Until Exam, and Increased Observations by Caregivers PATIENT GENDER DATA: Male PATIENT RELEVANT IMPLANT DATA REVIEWED: Yes PATIENT PRESENTS WITH AN IMPLANTABLE OR ATTACHED BLOW PIT OPERATOR: No RADIOLOGY DEPARTMENT: MR; Exam(s) Completed: Head: Routine Brain PERIPHERAL IV DATA: Not applicable SIGNED BY: RT Jovita(Aris) November 25, 2023 11:05 AM documented in this encounterChillicothe Hospital02-29-2024 Miscellaneous Notes* Telephone Encounter - Suzette Garcia - 11/24/2023 3:57 PM EST Patient informed and verbalized understanding. Suzette Garcia * Telephone Encounter - Francisco Bahena MD - 11/24/2023 3:40 PM EST Let patient know all his recent labs were ok. documented in this encounterChillicothe Hospital02-27-2024 Miscellaneous Notes* Telephone Encounter - Yolanda Cabral LPN - 11/22/2023 2:04 PM EST called in and message given. They will discuss and call back at a later time on what they would like to do. Yolanda Cabral LPN * Telephone Encounter - Tuan Duval LPN - 11/22/2023 1:25 PM EST LM to return call to office. Tuan Duval LPN * Telephone Encounter - Francisco Bahena MD - 11/22/2023 12:51 PM EST Let patient know hip x-ray does show mild arthritis in the left hip and this may be the source of his pain. Is he willing do some PHYSICAL THERAPY or wanting to see ortho? documented in this encounterChillicothe Hospital02-27-2024 History of Present illness Narrative* Raquel Méndez RT(R) - 11/22/2023 11:50 AM EST Radiology Service Progress Note PATIENT NAME: Javier Bond DATE OF SERVICE: November 22, 2023 TIME: 12:16 PM PATIENT IDENTITY VERIFICATION COMPLETED USING TWO (2) IDENTIFIERS: Name and Date of confirmedby patient verbally. FALL SCREENING: Has the patient had 2 falls in the last year or 1 fall with injury or currently using an Ambulatory Assistive Device (Walker, Cane, Wheelchair, Crutches, etc.)? Yes, Patient High Riskfor Falls What interventions were put in place to prevent falls during this visit? Offered Assistance with Transfers/Clothing, Instructed Patient to Remain Seated (Not on Exam Table) Until Exam, and Increased Observations by Caregivers PATIENT GENDER DATA: Male PATIENT RELEVANT IMPLANT DATA REVIEWED: Yes PATIENT PRESENTS WITH AN IMPLANTABLE OR ATTACHED BLOW PIT OPERATOR: No RADIOLOGY DEPARTMENT: General X-ray: Exam(s) Completed: Pelvis X-Ray: Pelvis with Hip Bilateral PERIPHERAL IV DATA: Not applicable SIGNED BY: RT Donal(R) November 22, 2023 12:16 PM documented in this encounterChillicothe Hospital02-21-2024 Miscellaneous Notes* Telephone Encounter - Mary Agee LPN - 11/16/2023 2:19 PM EST Spoke with patient following up from procedure. Patient states they are doing well, no questions orconcerns at this time. Mary Agee LPN documented in this encounterChillicothe Hospital02-19-2024 History of Present illness Narrative* Sebastian Adames MD - 11/14/2023 11:43 AM EST [facility] Date: 11/14/2023 Patient name: Javier Bond Physician performing procedure: Sebastian Adames MD Diagnosis: (M47.812) Cervical spondylosis without myelopathy (primary encounter diagnosis) Procedure: Radiofrequency Ablation (Thermal RFA) - Cervical Medial Branches under fluoroscopic guidance LEFT-SIDED at C5-6 and C6-7 Injectate: A total of 1.5 ml volume was injected The injectate consisted of: 1 ml of Dexamethasone (10mg/ml), The remainder consisting of 0.75% Bupivacaine Comments: None Improvement after today's procedure: as per nursing report HPI: Javier Bond is an 83 year old MALE who presents today, in pain, for the procedure noted above. Review of Systems: Pertinent Positives: MSK: pain in the region being treated Neuro: no weakness or numbness in the region being treated Skin: Negative (No itching) Eyes: Negative (No blurred or double vision) Respiratory: Negative (No Cough, [id number], Dyspnea on exertion, wheezing) Cardiovascular: Negative (No Chest Pain, Tightness, Pressure, Palpitations) Gastrointestinal: Negative (No Abdominal pain, Nausea, Vomiting, Constipation, Diarrhea) Genitourinary: Negative (No dysuria) Hematologic: Negative (No bleeding, bruising) OB: is Denied or Not Applicable Endocrine: Negative (No hot/cold intolerance) Psychiatric: Negative (No depression, anxiety or suicidal ideation) PAST MEDICAL HISTORY Diagnosis Date Abnormal SPEP 12/14/2022 Advance directive discussed with patient 10/04/2022 Discussed 09/2022 Anemia, chronic disease 08/25/2023 Hg runs 10-12.7 Arthritis Benign intracranial hypertension 11/30/2002 Bilateral carotid artery stenosis 12/03/2020 US 08/2020: Rt 20-40%, Lt 0-20% 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 Cervical spondylosis without myelopathy 06/27/2023 Chronic constipation 12/03/2020 Compression fracture of third lumbar vertebra (HCC) 11/05/2019 Degenerative lumbar spinal stenosis 12/15/2020 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/24/2022 S/p removal 08/2022 Essential hypertension, benign Family history of malignant neoplasm of gastrointestinal tract GERD (gastroesophageal reflux disease) 03/25/2009 Hiatal hernia 06/09/2022 History of compression fracture of spine 11/05/2019 Hypercalciuria, idiopathic 02/11/2020 Hypertrophy of prostate without urinary obstruction and other lower urinary tract symptoms (LUTS) Ilioinguinal neuralgia of left side 09/27/2019 Internal hemorrhoids without mention of complication Living will in place 10/04/2022 DPA: Peter Lumbar degenerative disc disease 09/14/2012 Lumbar radiculopathy 07/03/2020 Medicare annual wellness visit, subsequent 09/10/2021 Medicare Part B: Not able to find Last done: 09/10/2021 Nephrolithiasis 07/04/2007 Oropharyngeal dysphagia 12/25/2020 Osteoporosis 01/28/2020 Other specified anemias 03/16/2022 Acute blood loss 11/2020 (post surgery) Peripheral edema 05/21/2022 Primary osteoarthritis of both first carpometacarpal joints 05/04/2018 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 09/09/2015 Rosacea 09/09/2015 S/P lumbar spinal fusion 12/15/2020 Sepsis due to Gram-negative organism with septic shock (HCC) 12/17/2020 Proteus mirabilis UTI Situational anxiety 06/27/2019 Situational depression 02/27/2021 Spondylosis of lumbar region without myelopathy or radiculopathy 03/10/2018 Thyroid nodule 12/03/[address] Zacarias Unstable gait 05/21/2021 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 05/11/2021 PAST SURGICAL HISTORY Procedure Laterality Date ARTHRP INTERPOS INTERCARPAL/METACARPAL JOINTS Left 05/24/2018 Left thumb CMC arthroplasty with LRTI and MCP pinning of left thumb COLONOSCOPY FLX DX W/COLLJ SPEC WHEN PFRMD 07/17/08, 2012 COLONOSCOPY FLX DX W/COLLJ SPEC WHEN PFRMD 03/28/2019 [facility] CYSTO.PANENDO 02/20/2021 stent removal EGD TRANSORAL BIOPSY SINGLE/MULTIPLE 12/26/2008 ESOPHAGOGASTRODUODENOSCOPY TRANSORAL DIAGNOSTIC 03/18/2020 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 PERIPHERAL NERVE BLOCK (MOD 59) Bilateral 11/01/2016, 03/28/2018 bilateral lumbar facet medial branch nerve block (l4-5, L5-S1) REMOVAL OF HEMORRHOID CLOT 06/2017 SKIN BIOPSY HX SPINAL FUSION,ANT,EA ADNL LEVEL 2001 TONSILLECTOMY HX Childhood TRANSURETHRAL ELEC-SURG PROSTATECTOM 01/14/2023 XCAPSL CTRC RMVL INSJ IO LENS PROSTH W/O ECP Bilateral 08/25/2016 FAMILY HISTORY Problem Relation Age of Onset Cancer Mother lung Cancer Father colon Cancer Brother lymphoma Social History Tobacco Use Smoking status: Former Types: Cigarettes Quit date: 06/24/1963 Years since quittin.4 Smokeless tobacco: Never Tobacco comments: quit in his 20's - smoked socially while in college Vaping Use Vaping Use: Never used Substance Use Topics Alcohol use: Yes Comment: 1-2 drinks in A MONTH Drug use: No Current Outpatient Medications on File Prior to Visit Medication Sig meclizine HCl (ANTIVERT ORAL) Take by mouth as needed. dupilumab 300 mg/2 mL subcutaneous syringe ([employer]) Inject 300 mg subcutaneously every 2 weeks. lisinopril (ZESTRIL) 5 mg tablet Take 1 tablet by mouth once daily. traZODone (DESYREL) 50 mg tablet Take 0.5 tablets by mouth daily at bedtime. atorvastatin (LIPITOR) 10 mg tablet Take 1 tablet by mouth daily at bedtime. For cholesterol. furosemide (LASIX) 20 mg tablet Take 1 tablet by mouth once daily. methocarbamol (ROBAXIN) 500 mg tablet Take 500 mg by mouth once daily as needed. hydroCHLOROthiazide 12.5 mg tablet Take 1 tablet by mouth once daily. fexofenadine (HESHAM ALLERGY) 180 mg tablet Take one tablet one to two times a day d-mannose powd Take by mouth once daily. triamcinolone acetonide (KENALOG) 0.1 % cream Apply 1 application to affected area as directed. Docusate Sodium 250 mg capsule Take 100 mg by mouth twice daily. pantoprazole DR (PROTONIX) 40 mg tablet Take 40 mg by mouth once daily. doxycycline 20 mg tablet Take 20 mg by mouth twice daily. multivit-min/iron/folic acid/K (ADULTS MULTIVITAMIN ORAL) Take 1 tablet by mouth once daily. MEDICAL SUPPLY KAFO for right lower extremity. acetaminophen (TYLENOL) 500 mg tablet Take 2 tablets by mouth every 8 hours as needed for Pain or Fever. cephALEXin (KEFLEX) 500 mg capsule Take 1 capsule by mouth three times a day. Ascorbic Acid (VITAMIN C) 1,000 mg tablet Take 1 tablet by mouth twice daily. aspirin 81 mg chewable tablet Take 1 tablet by mouth once daily. No current facility-administered medications on file prior to visit. Objective Exam: Vitals: As per nursing documentation Constitutional: Normal Appearance, Oriented to Time, Place and Person Head: No lacerations, no external signs of trauma Eyes: Conjunctiva clear. No discharge from the eyes Cardiovascular: Appears well-perfused Pulmonary: Non-labored respirations Abdominal: Non-distended Skin: No visible rashes or ecchymosis Psychiatric: Mood appropriate for given condition Neurological: Gross movements are limited by pain, but otherwise unremarkable Data Reviewed: Nursing note and vitals reviewed. Additional imaging reviewed as appropriate Assessment and Plan: As noted above [place] protocol documentation / Pre-Procedure Checklist: Consent: Obtained in writing prior to procedure I had a nice discussion with the patient today about their current pain and the pathology that could be causing it We discussed different treatment options, including risks, benefits and alternatives. We agreed to proceed as previously discussed, or the plan was modified in accordance with the comments noted above Unless stated otherwise in the procedure note, the risks include but are not limited to infection, allergic reaction, increased pain, lack of therapeutic benefit, steroid reaction, nerve damage, paralysis, stroke, epidural hematoma, syncope, headache, respiratory or cardiac arrest, pneumothorax, and scar formation Once the plan was agreed upon, the patient gave written consent to proceed and was transported intothe procedure room Surgical/Procedure pause or Time Out : Time Out was led by the physician in the procedure room, with the patient and all staff present andparticipating The following information was verified during the Time Out process: Patient name, patient date of , procedure site (marked), laterality, anticoagulants and allergies Procedure: The patient was prepped and draped in a sterile fashion in the prone position after informed consent was signed and all patient questions were answered including the risks, benefits, alternative treatment options, and prognosis. The risks are as mentioned above. To denervate the facet joint nerves noted above, the lateral masses of these respective levels werelocalized under fluoroscopic visualization. An outer 10 cannula was inserted down the "waist" at the above-mentioned cervical levels. The needle was then "walked off" until it rested just lateral to the trough of the lateral mass of the medial branch nerve, which innervates the cervical facet joint, lies. For all these levels, the outer introducer needle was brought to the levels noted. Subsequently, APand lateral images were used to confirm location. The denervation/stimulation probe was inserted into the cannula and stimulation was carried out at motor levels to make sure there was expected stimulation without a radicular pattern. Subsequently, this was removed and then 0.5 to 1 cc. of 2% Lidocaine was injected. Subsequent to this, a pulsed neurotomy was carried out for 90 seconds at 55 degrees Celsius. Then, denervation of the facet nerves (medial branches of the dorsal rami which innervates the facet joints) was carried out at 80 degrees Celsius for 90 seconds. Then the cannulas were rep ositioned to get one additional lesion at each level for better efficacy. The above procedure was repeated for each facet joint nerve mentioned above. Radiographs were obtained at each level (unless otherwise noted) to verify probe placement during the neurotomy. Please see the nursing note for exact times (time out, procedure start, procedure end). After careful removal of the needle, there was minimal bleeding. The injection site was covered with appropriate sterile dressing. The patient was noted to have tolerated the procedure well and was discharged after an appropriate period of post-procedure observation. The patient was instructed to contact us if there were any complications. The patient was advised to follow-up with the requesting physician within one to two weeks or as per their requested follow-up plan. Post procedure visit summary with written instructions was offered to the patient. Sebastian Adames MD Pain Management [facility] * An Clements LPN - 11/14/2023 10:51 AM EST Order has been placed in the patient's chart with the following parameters for discharge from the physician: Patient is alert and oriented Vitals: Diastolic/Systolic +/- 20mmHg Respirations: 12-18 Pulse: 60-100 SpO2 is greater than or equal to 90% Patient has no nausea or vomiting Patient has no dizziness Pain level is +/- 2 from initial evaluation Dressing, dry and intact with no evidence of bleeding Criteria has been met, patient is okay to be discharged per the physician. Physician has gone in and evaluated the patient. Dressing dry and intact. No drainage noted. The patient denies nausea, numbness, tingling, weakness, shortness of breath, dizziness, or headache. Pain level 1/10. Vital signs within normal limits. Patient denied needing walked out by clinical staff and denied needing a wheelchair. Patient given discharge instructions and sent to transportation via ambulatory method. Patient left in good condition. * Eliceo Mcghee LPN - 11/14/2023 10:08 AM EST Review of Systems Constitutional: Negative for activity change, appetite change, chills and fever. Genitourinary: Negative for difficulty urinating. Musculoskeletal: Positive for arthralgias, gait problem, neck pain and neck stiffness. Negative forback pain, joint swelling and myalgias. Neurological: Negative for weakness, numbness and headaches. Psychiatric/Behavioral: Negative for dysphoric mood, sleep disturbance and suicidal ideas. The patient is not nervous/anxious. documented in this [facility] Instructions* Patient Instructions* An Clements LPN - 11/14/2023 11:03 AM EST PROCEDURE DISCHARGE INSTRUCTIONS 11/14/2023 Javier Bond 1940 Physician: Rigoberto Church MD Procedure: Facet Joint Branch Radiofrequency Denervation Post Procedure Instructions: If sedation not given, no driving for 3 hours after the procedure., Rest the day of the procedure.,You may resume normal activities the day after the procedure, as tolerated., Avoid movements that may aggravate pain., Apply cold compresses to injection site if needed., If medically acceptable, take over the counter anti-inflammatories such as ibuprofen or Aleve if needed for post procedure discomfort., No hot baths, hot tubs or hot compresses for 24 hours., Increased pain the day after the procedure may occur., and Your pain should subside in the next 4-6 weeks. If you have any of the following signs or symptoms, please call our office at Fever and/or chills Swelling and/or drainage from injection site New pain that is different than your normal pain (other than soreness at the site of the procedure) Stiff neck Shortness of breath Severe increase in pain Motor dysfunctions, such as difficulty walking, bowel or bladder dysfunction and/or incontinence Headache that is severe, light sensitive or develops when changing positions (positional headache) Nausea and/or vomiting accompanied by headache that started 24-48 hours after the procedure If you have any emergent concerns, please call 911 or go to your local emergency room. Please also contact our office to let us know you will be seeking emergency care and why. documented in this encounterChillic[facility]02-19-[facility]24 Nurse Note* Jenni Enamorado LPN - 11/14/2023 10:22 AM EST Procedure to be performed: C5/6 - C6/7 Unilateral Left Radiofrequency Ablation Patient was wheeled on stretcher from pre op bay to procedure room and assisted onto the procedure tablePatient s procedure was performed in an [facility] Procedure room. Pause completed at each level by provider to verify correct level and laterality placement Pressure was applied to patient s injection site(s) and bleeding was minimal. Patient had no complaint of shortness of breath, dizziness, headache, numbness, tingling, weakness or complications from procedure. Patient was assisted from the procedure table onto the stretcher and wheeled into a post op bay. Patient was advised a clinician will be to obtain another set of vitals. Time Out: 1023 Confirmed patient name, date of , procedure site, laterality, and allergies Procedure Start: 102 Procedure End: 104 * Eliceo Mcghee LPN - 11/14/2023 10:05 AM EST Bonding Machine Tender's Name: PETER Are you on a blood thinner: N If yes, is a hold required: N Last dose of blood thinner: N INR Result today: N Do you require a Lovenox bridge:N Are you a diabetic:N Are you/or could you be : N Are you taking Xanax for the procedure: N Are you currently on a steroid? N Are you currently on an antibiotic: N Have you had a COVID-19 vaccine in the last 14 days Or are you scheduled to receive one? N documented in this encounterChill[facility]02-19-2024 Miscellaneous Notes* Telephone Encounter - Yash Monroe MA - 11/14/2023 9:48 AM EST Patient has been identified by name and date of : Yes, Provider Dr Bahena Date 11/14/2023 Time9:48 am Requested Prescriptions Pending Prescriptions Disp Refills hydroCHLOROthiazide 12.5 mg tablet 90 tablet 1 Sig: Take 1 tablet by mouth once daily. RX INSTRUCTIONS: Patient aware RX will be sent to pharmacy. No need to notify patient. Yash Monroe MA Christa 09/2023 Nov 10/2023 Last refill; 04/2023 documented in this encounterChill[facility]02-[facility]24 History of Present illness Narrative* Yolanda Victoria, NEREYDA.TIME SIGNAL WIRER - 11/04/2023 11:01 AM EST Javier Bond is a 82 year old male who presents today for a follow up for Patient presents with: Follow Up UTI CHIEF COMPLAINT & HISTORY OF PRESENT ILLNESS CC: follow up 82 year old male with a history of BPH, ED, s/p TURP on 01/14/2023 presents today for urosepsis follow up, urine culture was negative 10/27/2023, denies dysuria. PVR 56 cc was 24 cc Taking d mannose liquid Followed by PHYLLIS Lacy for stones Presented to the [facility] on 09/10/2023 for shaking, chills, he was prescribed keflex and discharged home, he never started to feel better. Admitted to [facility] on 09/25/2023 for 5 days. All records are not available for review. Blood cultures and urine culture were positive for e coli UTI's began in 2020 after a spinal fusion per patient. History of left non obstructing kidney stone VITALS: There were no vitals taken for this visit. ALLERGIES: Contrast Dye, Finacea [Azelaic Acid], Bactrim [Sulfamethoxazole- Trimethoprim], Bextra [Valdecoxib], Cardura [Doxazosin Mesylate], Ciprofloxacin, Cytotec [Misoprostol], Fosamax [AlendronateSodium], Gabapentin, Ketoconazole, Levofloxacin, Mobic [Meloxicam], Nitrofurantoin, Nsaids (Non-Steroidal Anti- Inflammatory Drug), Relafen [Nabumetone], and Terbinafine MEDICATIONS: Current Outpatient Medications Medication Sig Dispense Refill meclizine HCl (ANTIVERT ORAL) Take by mouth as needed. dupilumab 300 mg/2 mL subcutaneous syringe ([employer]) Inject 300 mg subcutaneously every 2 weeks. lisinopril (ZESTRIL) 5 mg tablet Take 1 tablet by mouth once daily. 90 tablet 1 traZODone (DESYREL) 50 mg tablet Take 0.5 tablets by mouth daily at bedtime. 45 tablet 1 atorvastatin (LIPITOR) 10 mg tablet Take 1 tablet by mouth daily at bedtime. For cholesterol. 90 tablet 1 furosemide (LASIX) 20 mg tablet Take 1 tablet by mouth once daily. 90 tablet 1 methocarbamol (ROBAXIN) 500 mg tablet Take 500 mg by mouth once daily as needed. hydroCHLOROthiazide 12.5 mg tablet Take 1 tablet by mouth once daily. 90 tablet 1 fexofenadine (HESHAM ALLERGY) 180 mg tablet Take one tablet one to two times a day 60 tablet 11 d-mannose powd Take by mouth once daily. triamcinolone acetonide (KENALOG) 0.1 % cream Apply 1 application to affected area as directed. Docusate Sodium 250 mg capsule Take 100 mg by mouth twice daily. pantoprazole DR (PROTONIX) 40 mg tablet Take 40 mg by mouth once daily. doxycycline 20 mg tablet Take 20 mg by mouth twice daily. multivit-min/iron/folic acid/K (ADULTS MULTIVITAMIN ORAL) Take 1 tablet by mouth once daily. acetaminophen (TYLENOL) 500 mg tablet Take 2 tablets by mouth every 8 hours as needed for Pain or Fever. cephALEXin (KEFLEX) 500 mg capsule Take 1 capsule by mouth three times a day. (Patient not taking: Reported on 11/04/2023) 30 capsule 0 Ascorbic Acid (VITAMIN C) 1,000 mg tablet Take 1 tablet by mouth twice daily. (Patient not taking: Reported on 10/13/2023) 60 tablet 11 MEDICAL SUPPLY KAFO for right lower extremity. (Patient not taking: Reported on 10/20/2023) 1 Device1 aspirin 81 mg chewable tablet Take 1 tablet by mouth once daily. (Patient not taking: Reported on 10/20/2023) No current facility-administered medications for this visit. SOCIAL HISTORY: Social History Tobacco Use Smoking status: Former Types: Cigarettes Quit date: 06/24/1963 Years since quittin.4 Smokeless tobacco: Never Tobacco comments: quit in his 20's - smoked socially while in college Vaping Use Vaping Use: Never used Substance Use Topics Alcohol use: Yes Comment: 1-2 drinks in A MONTH Drug use: No PAST MEDICAL HISTORY: PAST MEDICAL HISTORY Diagnosis Date Abnormal SPEP 12/14/2022 Advance directive discussed with patient 10/04/2022 Discussed 09/2022 Anemia, chronic disease 08/25/2023 Hg runs 10-12.7 Arthritis Benign intracranial hypertension 11/30/2002 Bilateral carotid artery stenosis 12/03/2020 US 08/2020: Rt 20-40%, Lt 0-20% 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 Cervical spondylosis without myelopathy 06/27/2023 Chronic constipation 12/03/2020 Compression fracture of third lumbar vertebra (HCC) 11/05/2019 Degenerative lumbar spinal stenosis 12/15/2020 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/24/2022 S/p removal 08/2022 Essential hypertension, benign Family history of malignant neoplasm of gastrointestinal tract GERD (gastroesophageal reflux disease) 03/25/2009 Hiatal hernia 06/09/2022 History of compression fracture of spine 11/05/2019 Hypercalciuria, idiopathic 02/11/2020 Hypertrophy of prostate without urinary obstruction and other lower urinary tract symptoms (LUTS) Ilioinguinal neuralgia of left side 09/27/2019 Internal hemorrhoids without mention of complication Living will in place 10/04/2022 DPA: Peter Lumbar degenerative disc disease 09/14/2012 Lumbar radiculopathy 07/03/2020 Medicare annual wellness visit, subsequent 09/10/2021 Medicare Part B: Not able to find Last done: 09/10/2021 Nephrolithiasis 07/04/2007 Oropharyngeal dysphagia 12/25/2020 Osteoporosis 01/28/2020 Other specified anemias 03/16/2022 Acute blood loss 11/2020 (post surgery) Peripheral edema 05/21/2022 Primary osteoarthritis of both first carpometacarpal joints 05/04/2018 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 09/09/2015 Rosacea 09/09/2015 S/P lumbar spinal fusion 12/15/2020 Sepsis due to Gram-negative organism with septic shock (HCC) 12/17/2020 Proteus mirabilis UTI Situational anxiety 06/27/2019 Situational depression 02/27/2021 Spondylosis of lumbar region without myelopathy or radiculopathy 03/10/2018 Thyroid nodule 12/03/[address] Zacarias Unstable gait 05/21/2021 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 05/11/2021 PAST SURGICAL HISTORY: PAST SURGICAL HISTORY Procedure Laterality Date ARTHRP INTERPOS INTERCARPAL/METACARPAL JOINTS Left 05/24/2018 Left thumb CMC arthroplasty with LRTI and MCP pinning of left thumb COLONOSCOPY FLX DX W/COLLJ SPEC WHEN PFRMD 07/17/08, 2012 COLONOSCOPY FLX DX W/COLLJ SPEC WHEN PFRMD 03/28/2019 [facility] CYSTO.PANENDO 02/20/2021 stent removal EGD TRANSORAL BIOPSY SINGLE/MULTIPLE 12/26/2008 ESOPHAGOGASTRODUODENOSCOPY TRANSORAL DIAGNOSTIC 03/18/2020 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 PERIPHERAL NERVE BLOCK (MOD 59) Bilateral 11/01/2016, 03/28/2018 bilateral lumbar facet medial branch nerve block (l4-5, L5-S1) REMOVAL OF HEMORRHOID CLOT 06/2017 SKIN BIOPSY HX SPINAL FUSION,ANT,EA ADNL LEVEL 2001 TONSILLECTOMY HX Childhood TRANSURETHRAL ELEC-SURG PROSTATECTOM 01/14/2023 XCAPSL CTRC RMVL INSJ IO LENS PROSTH W/O ECP Bilateral 08/25/2016 FAMILY HISTORY: FAMILY HISTORY Problem Relation Age of Onset Cancer Mother lung Cancer Father colon Cancer Brother lymphoma All histories reviewed on this date 11/04/2023: Yes REVIEW OF SYSTEMS: CONSTITUTIONAL: Patient reports no recent fever or weight loss CARDIOVASCULAR: Negative for chest pain. RESPIRATORY: Negative for cough, hemoptysis, wheezing, COPD, dyspnea or shortness of breath GI: See HPI All other systems reviewed and are negative other than HPI. PHYSICAL EXAM: constitutional: appears healthy in no acute distress respiratory: normal respiratory motion RADIOLOGY REPORTS REVIEWED: Yes LAB RESULTS REVIEWED: Yes IMAGING STUDIES INDEPENDENTLY REVIEWED: No OLD RECORDS REVIEWED: Yes: Extensive: Yes ASSESSMENT/PLAN: ASSESSMENT/PLAN: 1. Complicated UTI (urinary tract infection) - ICD9: 599.0, ICD10: N39.0 (primary diagnosis) -resolved -ua negative -continue with d mannose -PVR 56 cc - BLADDER SCAN 2. Left nephrolithiasis - ICD9: 592.0, ICD10: N20.0 -ct reviewed -follow up with angela for stone prevention Patient to schedule follow up as scheduled Yolanda Victoria APRN.TIME SIGNAL WIRER documented in this encounterCh[facility]02-09-2024 Nurse Note* Etta Valenzuela LPN - 11/04/2023 10:42 AM EST Bladder scan obtained 56 ml of urine documented in this encounterChillic[facility]02-01-2024 Nurse Note* Rose Pro RN - 10/27/2023 11:18 AM EST Patient arrived laying on left side. Patient does not appear to be in any pain at this time. Abdomen appears to be nondistended and soft to palpation. Patient encouraged to belch and pass gas as needed. documented in this encounterChillic[facility]02-[facility]-2024 History and physical note * Aly Guardado MD - 10/27/2023 10:30 AM EST Images from the original note were not included. HISTORY AND PHYSICAL Javier Bond 1940 REFERRING PHYSICIAN: Francisco Bahena MD CHIEF COMPLAINT: Consult (LLQ pain, inguinal hernia ? CT scan 08/2023) HPI: The patient is a 82 year old male referred for endoscopy. Javier notes no history of colon complaints. The patient notes no history of upper GI complaints. Pain Location? LLQ Pain scale? Runs from 3-7/10. Worse if pushes on it but not with coughing. Increased discomfort with straining with a BM. Describe pain? Stabbing like pain How long? Last few months. No know cause of onset. Any N/V/D? No. No hematochezia or melena. Javier has undergone prior endoscopy. 2019 The patient is being seen by me today at the request of Dr. Francisco Bahena MD for my opinion and advice regarding Llq pain (primary encounter diagnosis) Chronic constipation PAST MEDICAL HISTORY PAST MEDICAL HISTORY Diagnosis Date Abnormal SPEP 12/14/2022 Advance directive discussed with patient 10/04/2022 Discussed 09/2022 Anemia, chronic disease 08/25/2023 Hg runs 10-12.7 Benign intracranial hypertension 11/30/2002 Bilateral carotid artery stenosis 12/03/2020 US 08/2020: Rt 20-40%, Lt 0-20% 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 Cervical spondylosis without myelopathy 06/27/2023 Chronic constipation 12/03/2020 Compression fracture of third lumbar vertebra (HCC) 11/05/2019 Degenerative lumbar spinal stenosis 12/15/2020 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/24/2022 S/p removal 08/2022 Essential hypertension, benign Family history of malignant neoplasm of gastrointestinal tract GERD (gastroesophageal reflux disease) 03/25/2009 Hiatal hernia 06/09/2022 History of compression fracture of spine 11/05/2019 Hypercalciuria, idiopathic 02/11/2020 Hypertrophy of prostate without urinary obstruction and other lower urinary tract symptoms (LUTS) Ilioinguinal neuralgia of left side 09/27/2019 Internal hemorrhoids without mention of complication Living will in place 10/04/2022 DPA: Peter Lumbar degenerative disc disease 09/14/2012 Lumbar radiculopathy 07/03/2020 Medicare annual wellness visit, subsequent 09/10/2021 Medicare Part B: Not able to find Last done: 09/10/2021 Nephrolithiasis 07/04/2007 Oropharyngeal dysphagia 12/25/2020 Osteoporosis 01/28/2020 Other specified anemias 03/16/2022 Acute blood loss 11/2020 (post surgery) Peripheral edema 05/21/2022 Primary osteoarthritis of both first carpometacarpal joints 05/04/2018 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 09/09/2015 Rosacea 09/09/2015 S/P lumbar spinal fusion 12/15/2020 Sepsis due to Gram-negative organism with septic shock (HCC) 12/17/2020 Proteus mirabilis UTI Situational anxiety 06/27/2019 Situational depression 02/27/2021 Spondylosis of lumbar region without myelopathy or radiculopathy 03/10/2018 Thyroid nodule 12/03/[address] Zacarias Unstable gait 05/21/2021 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 05/11/2021 PAST SURGICAL HISTORY PAST SURGICAL HISTORY Procedure Laterality Date ARTHRP INTERPOS INTERCARPAL/METACARPAL JOINTS Left 05/24/2018 Left thumb CMC arthroplasty with LRTI and MCP pinning of left thumb COLONOSCOPY FLX DX W/COLLJ SPEC WHEN PFRMD 07/17/08, 2012 COLONOSCOPY FLX DX W/COLLJ SPEC WHEN PFRMD 03/28/2019 [facility] Cenagil CYSTO.PANENDO 02/20/2021 stent removal EGD TRANSORAL BIOPSY SINGLE/MULTIPLE 12/26/2008 ESOPHAGOGASTRODUODENOSCOPY TRANSORAL DIAGNOSTIC 03/18/2020 EGD EXCISION OF CYST squamous cell on head LAP, REVISION DEMETRIO FUNDOPLASTY 03/11/2009 hiatal hernia LAPAROSCOPY SURG CHOLECYSTECTOMY 03/11/2009 LITHOTRIPSY XTRCORP SHOCK WAVE 1982,12/07/2006, 2011 NEPHROLITHOTOMY REMOVAL STAGE 1 Right 11/28/2006, 2011 (R) ureteroscopic OPEN REPAIR OF ROTATOR CUFF ACUTE Right 12/06/2002 OPEN REPAIR OF ROTATOR CUFF ACUTE Left 08/26/2004 PAST SURGICAL HISTORY OF 08/2022 re-moval of esophageal diverticulum. PERIPHERAL NERVE BLOCK (MOD 59) Bilateral 11/01/2016, 03/28/2018 bilateral lumbar facet medial branch nerve block (l4-5, L5-S1) REMOVAL OF HEMORRHOID CLOT 06/2017 SPINAL FUSION,ANT,EA ADNL LEVEL 2001 TONSILLECTOMY HX Childhood TRANSURETHRAL ELEC-SURG PROSTATECTOM 01/14/2023 XCAPSL CTRC RMVL INSJ IO LENS PROSTH W/O ECP Bilateral 08/25/2016 CURRENT MEDICATIONS Current Outpatient Medications Medication Sig meclizine HCl (ANTIVERT ORAL) Take by mouth as needed. dupilumab 300 mg/2 mL subcutaneous syringe ([employer]) Inject 300 mg subcutaneously every 2 weeks. traZODone (DESYREL) 50 mg tablet Take 0.5 tablets by mouth daily at bedtime. atorvastatin (LIPITOR) 10 mg tablet Take 1 tablet by mouth daily at bedtime. For cholesterol. furosemide (LASIX) 20 mg tablet Take 1 tablet by mouth once daily. methocarbamol (ROBAXIN) 500 mg tablet Take 500 mg by mouth once daily as needed. hydroCHLOROthiazide 12.5 mg tablet Take 1 tablet by mouth once daily. d-mannose powd Take by mouth once daily. triamcinolone acetonide (KENALOG) 0.1 % cream Apply 1 application to affected area as directed. Docusate Sodium 250 mg capsule Take 100 mg by mouth twice daily. pantoprazole DR (PROTONIX) 40 mg tablet Take 40 mg by mouth once daily. doxycycline 20 mg tablet Take 20 mg by mouth twice daily. multivit-min/iron/folic acid/K (ADULTS MULTIVITAMIN ORAL) Take 1 tablet by mouth once daily. MEDICAL SUPPLY KA for right lower extremity. acetaminophen (TYLENOL) 500 mg tablet Take 2 tablets by mouth every 8 hours as needed for Pain or Fever. aspirin 81 mg chewable tablet Take 1 tablet by mouth once daily. lisinopril (ZESTRIL) 5 mg tablet Take 1 tablet by mouth once daily. (Patient not taking: Reported on 10/13/2023) fexofenadine (HESHAM ALLERGY) 180 mg tablet Take one tablet one to two times a day (Patient not taking: Reported on 10/13/2023) Ascorbic Acid (VITAMIN C) 1,000 mg tablet Take 1 tablet by mouth twice daily. (Patient not taking: Reported on 10/13/2023) No current facility-administered medications for this visit. ALLERGIES: Contrast Dye, Finacea [Azelaic Acid], Bactrim [Sulfamethoxazole- Trimethoprim], Bextra [Valdecoxib], Cardura [Doxazosin Mesylate], Ciprofloxacin, Cytotec [Misoprostol], Fosamax [AlendronateSodium], Gabapentin, Keflex [Cephalexin], Ketoconazole, Levofloxacin, Mobic [Meloxicam], Nitrofurantoin, Nsaids (Non-Steroidal Anti-Inflammatory Drug), Relafen [Nabumetone], and Terbinafine PERSONAL HISTORY: SOCIAL HISTORY Social History Tobacco Use Smoking status: Former Types: Cigarettes Quit date: 06/24/1963 Years since quittin.3 Smokeless tobacco: Never Tobacco comments: quit in his 20's - smoked socially while in college Vaping Use Vaping Use: Never used Substance Use Topics Alcohol use: Yes Comment: 1-2 drinks in A MONTH Drug use: No FAMILY HISTORY: FAMILY HISTORY FAMILY HISTORY Problem Relation Age of Onset Cancer Mother lung Cancer Father colon Cancer Brother lymphoma REVIEW OF SYMPTOMS: The review of systems data was entered by the nurse and reviewed by me Nursing Notes: Paul Garcia LPN 10/13/2023 1:15 PM Signed REVIEW OF SYSTEMS: General: The patient denies fatigue, denies weight loss, denies weight gain, denies feeling hot, and denies feelings of cold. Eyes: The patient denies glaucoma, denies eye injury/surgery, wears glasses or contacts. Ear/Nose/Throat: The patient notes allergies, denies hayfever, denies ear infections, and denies bloody noses. Cardiovascular: The patient denies chest pain, denies heart disease, notes high blood pressure,denies cardiac stent, denies prior heart attack, denies irregular heart beat, denies high cholesterol, denies poor circulation, denies heart failure, other cardiac issues, denies claudication, denies coldfeet, denies peripheral arterial stent. Respiratory: The patient denies tuberculosis, denies pneumonia, denies frequent cough, denies pulmonary embolism, denies shortness of breath, and denies coughing up blood. Gastrointestinal: The patient denies difficulty swallowing, denies acid reflux, denies ulcers, denies vomiting, denies jaundice/hepatitis, denies gallbladder problems, denies black or tarry stools, denies hemorrhoids, denies bleeding from rectum, denies diverticulitis, notes constipation, denies diarrhea, denies loss of stool control, and notes hernias. Kidney/Bladder: The patient notes kidney stones, notes urine infections, and denies bloody urine. Skin: The patient denies a history of skin cancer, denies bleeding/changing moles, and denies a history of skin rash. Neurologic: The patient denies a history of epilepsy/convulsions, denies headaches, denies head/spinal injuries, and denies stroke/TIA. Psychiatric: The patient denies psychiatric medications, denies depression, and denies voices, denies substance abuse. Endocrine: The patient denies thyroid disorders, denies diabetes, and denies hormonal problems. Hematologic: The patient denies a history of bruising, denies bleeding, and denies anemia, denies blood clots. Infections: The patient denies a history of measles and mumps, denies rheumatic fever, and denies sexually transmitted diseases. Musculoskeletal: The patient notes back pain/injury, notes back problems, notes sciatica, denies knee/foot trouble, denies arthritis, or denies gout. When was patient's last Mammogram screening? N/A Last Colonoscopy: 2018 Paul Garcia LPN PHYSICAL EXAMINATION: General: The patient is 82 year old male, well nourished, well hydrated in no acute distress. The patient is oriented to time, place, and person. VITALS: Blood pressure 110/64, pulse (!) 52, temperature 36.9 C (98.4 F), height 180.3 cm (5' 11"),weight 74.8 kg (165 lb), SpO2 95%. Body mass index is 23.01 kg/m . HEENT: Normal cephalic, ataumatic, pupils are equally round, sclera are anicteric, mucous membranesare moist, oropharynx is clear. Neck has no masses, asymmetry or lymphadenopathy. Thyroid is unremarkable. Respiratory: Clear to auscultation and percussion. Normal respiratory excursion and pattern. Cardiac: Examination is regular rate and rhythm. Abdominal exam: Soft, tender llq along old hernia site, with no palpable masses. No hepatosplenomegaly. No palpable hernias. Rectal exam: exam deferred Extremities: no clubbing, cyanosis or edema. No adenopathy. Other: LABORATORY VALUES: As Noted RADIOLOGIC STUDIES: As Noted Assessment IMPRESSION: Llq pain (primary encounter diagnosis) Chronic constipation PLAN: I plan to perform lower endoscopy. We discussed the risks and benefits of the planned endoscopy. I have informed the patient that complications can occur including failure to complete the endoscopy and perforation. The patient had the opportunity to ask questions concerning the planned endoscopy. My staff has also explained the procedure to the patient in understandable terms and has given the patient printed material concerning the procedure. The patient freely consents to surgery. I plan to use Miralax bowel preperation for endoscopy Diagnoses: (R10.32) LLQ pain (primary encounter diagnosis) My findings have been communicated to Dr. Francisco Bahena MD via shared medical record. This note will be forwarded to Dr. Francisco Bahena MD. Return to Clinic: The patient is instructed to follow-up with me 1 week post operatively. Aly Guardado III, MD UPDATED HISTORY AND PHYSICAL EXAMINATION SERVICE DATE: 10/27/2023 SERVICE TIME: 10:07 AM PHYSICAL EXAM MUST BE COMPLETED ON ADMISSION The History and Physical (completed in the past 30 days) has been reviewed and the patient has beenexamined. The contents accurately reflect the patient's condition with the following additions or revisions since the H&P was completed. Examination indicates no changes. This H&P can be found in the attached. SIGNATURE: Aly Guardado III, MD PATIENT NAME: Javier Bond DATE: October 27, 2023 TIME: 10:07 AM [facility] encounter Note * Telephone Encounter - Aly Guardado MD - 10/21/2023 3:51 PM EST 7 days [facility] Work Phone: 1(596) 749-585401-26-2024 Miscellaneous Notes* Telephone Encounter - Aly Guardado MD - 10/21/2023 3:51 PM EST 7 days * Telephone Encounter - Adilene Mcclelland - 10/21/2023 2:35 PM EST Images from the original note were not included. You Aly Guardado MD Just now (2:35 PM) Please advise how long you wish aspirin to be held? Patient scheduled 10/27/2023 in ASC with you Adilene Mcclelland [employer] * Telephone Encounter - Aly Guardado MD - 10/21/2023 2:20 PM EST He can take all of his meds except his aspirin. * Telephone Encounter - Adilene Mcclelland - 10/13/2023 1:54 PM EST 10/27/2023 COL[facility] Patient is asking in regards to what meds he can and cannot take prior to procedure specifically his stool softener he takes 5 times a day Please advise Adilene Mcclelland [employer] [facility] Telephone encounter Note * Telephone Encounter - Adilene Mcclelland - 10/21/2023 2:35 PM EST Images from the original note were not included. You Aly Guardado MD Just now (2:35 PM) Please advise how long you wish aspirin to be held? Patient scheduled 10/27/2023 in ASC with you Adilene Mcclelland [employer] [facility] Telephone encounter Note* Telephone Encounter - Aly Guardado MD - 10/21/2023 2:20 PM EST He can take all of his meds except his aspirin. [facility] Telephone encounter Note* Telephone Encounter - Adilene Mcclelland - 10/13/2023 1:54 PM EST 10/27/2023 COLON [facility] Patient is asking in regards to what meds he can and cannot take prior to procedure specifically his stool softener he takes 5 times a day Please advise Adilene Mcclelland [employer] [facility] Progress note Author Christoph Kilgore [facility] September 27, 2023 10:30am Note Date/Time September 27, 2023 10 :30am [facility] Medical Records Department [address] [place] [address] Progress Note - Hospitalist 09/27/23 1023 MR#: [id number] Acct: [id number] Name: JAVIER BOND Rep #:[id number] : 1940 82 From: Christoph fofana MD PCP: Dr. Francisco Bahena MD Status:ADM IN Location: [place] [address] Subjective Subjective Doing well, no issues overnight. It does appear that this bacteremia could havebeen from his UTI back in August Objective Data Objective Data Vital Signs: Vital Signs Temp Pulse Resp BP Pulse Ox O2 Del Method 98.5 F 84 12 135/67 H 97 Room Air 09/27/23 08:43 09/27/23 08:43 09/27/23 08:43 09/27/23 08:43 09/27/23 08:43 09/27/23 08:43 Oxygen Delivery Method Room Air Weight: 164 lb 3.91 oz Body Mass Index (BMI) 22.8 Intake & Output: Intake and Output for Last 24 Hours 09/26/23 09/27/23 09/28/23 03:59 03:59 03:59 Intake Total 4488.74 / 4488.74 1368.75 / 1368.75 Output Total 650 / 650 350 / 350 Balance 3838.74 / 3838.74 1018.75 / 1018.75 Lab / Micro Data 09/27/23 06:55 09/27/23 06:55 Labs: Laboratory Results - last 24 hr 09/27/23 06:55: WBC 5.1, RBC 3.28 L, Hgb 10.4 L, Hct 32.2 L, MCV 98.2 H, MCH 31.7, MCHC 32.3, RDW Std Deviation 46.7 H, RDW Coeff of Ezequiel 13.1, Plt Count 123 L, MPV 9.2, Immature Gran % (Auto) 0.200, Neut % (Auto) 85.5 H, Lymph % (Auto) 8.2 L, [place] % (Auto) 3.7, Eos % (Auto) 1.8, Baso % (Auto) 0.6, Absolute Neuts (auto) 4.4, Absolute Lymphs (auto) 0.42 L, Nucleated RBC % 0, Differential Comment COMMENT, Sodium 138, Potassium 3.8, Chloride 110 H, Carbon Dioxide 27.0,Anion Gap 1 L, BUN 17, Creatinine 0.80, Estim Creat Clear Calc 77.60, Est GFR (MDRD) Af Amer 120, Est GFR (MDRD) Non-Af 99, BUN/Creatinine Ratio 21.4 H, Glucose 95, Calcium 8.3 L Micro: Microbiology 09/24/23 23:55 Blood Culture (Wb) - Anticubital Left Blood Culture - Preliminary GNR lactose spring maker 09/25/23 05:45 Mucosa - Nasopharyngeal Respiratory Panel (PCR) - Final 09/24/23 21:00 Nasal Secretion SARS-CoV-2 & FLU Antigen (Rapid) - Final Physical Exam Narrative General: Alert, Oriented x3, Cooperative, No apparent distress HEENT: Atraumatic, PERRLA, EOMI, Normocephalic Oral: Moist Mucosa Neck: Supple, No JVD Lungs: Diminished, Normal air movement, No rhonchi, No wheeze, No rales Cardiovascular: Regular rate, Regular Rhythm, Normal S1, Normal S2, No murmurs Abdomen: Soft, Non Tender, Non-Distended, No Hepato-splenomegaly Extremities: No edema, Capillary Refill Less than 3 Seconds Skin: No rashes, No breakdown Musculoskeletal: No Tenderness to Palpation of Joints or Extremities Neurological: Cranial nerves II-XII grossly intact, Motor Exam 5/5 strength throughout, Sensory exam intact to light touch and pain Psych/Mental Status: Normal Affect, Appropriate Assessment & Plan Assessment/Plan (1) Sepsis without septic shock: (2) Acute febrile illness: (3) Weakness: PLAN: Plan 1. Sepsis ruled out with gram-negative randy bacteremia/debility and weakness secondary to lumbar spine fusion in the setting of infection/intermittent urinary retention * etiology is not clear. I am not sure he has gastroenteritis * CT of the abdomen showed nonspecific small bowel changes. It also showed a small nonobstructing left renal calculi. * Chest x-ray showed no acute cardiopulmonary pathology. COVID and flu are negative. * Will discontinue IV vancomycin and continue with only IV Zosyn pending finalization of his blood cultures * No urine cultures were obtained this admission but he did have E. coli in his urine in 09/10/2023 that was fairly sensitive * Blood cultures with gram-negative randy, family states that his issues began several weeks ago which could be consistent with translocation from his urinary source * I do recommend that he follow-up with urology as an outpatient as it is his urinary retention after spinal fusion I can potentially be precipitating his UTI, continue with Flomax and finasteride 2. History of lumbar spine injury with fusion * had L spine fusion a few years ago. * PT.OT On board. Fall precautions. 3. Hypertension/hyperlipidemia ? Blood pressures are stable, his blood pressure medications are on hold secondary to his transient hypotension though he is still less than 120 systolicgenerally during his hospitalization ? We will monitor make adjustments as necessary ? Continue with statin 4. GERD ? Stable ? On PPI DVT: Lovenox Charges/Coding Visit Charges Inpatient E&M: 35267 Subs Hosp L2 09/27/23 1030 <Electronically signed by Christoph Kilgore MD> Cosigner Signature (if applicable): CC: ~ Signed [facility] Work Phone: 1(893) 391-769601-01-2024 Progress note Author Christoph Kilgore [facility] September 26, 2023 11:02am Note Date/Time September 26, 2023 11 :01am [facility] Medical Records Department [address] [place] [address] Progress Note - Hospitalist 09/26/23 1057 MR#: [id number] Acct: [id number] Name: JAVIER BOND Rep #:[id number] : 1940 82 From: Christoph fofana MD PCP: Dr. Francisco Bahena MD Status:ADM IN Location: [place] [address] Subjective Subjective Doing well, no issues overnight, has some mild abdominal pain that is appearing to improve no diarrhea or nausea and vomiting. He has remained afebrile for over 24 hours Objective Data Objective Data Vital Signs: Vital Signs Temp Pulse Resp BP Pulse Ox O2 Del Method 97.9 F 81 18 105/54 L 97 Room Air 09/26/23 09:24 09/26/23 09:24 09/26/23 09:24 09/26/23 09:24 09/26/23 09:24 09/26/23 09:24 Oxygen Delivery Method Room Air Weight: 164 lb 3.91 oz Body Mass Index (BMI) 22.8 Intake & Output: Intake and Output for Last 24 Hours 09/25/23 09/26/23 09/27/23 03:59 03:59 03:59 Intake Total 296.25 / 296.25 4488.74 / 4488.74 868.75 / 868.75 Output Total 650 / 650 350 / 350 Balance 296.25 / 296.25 3838.74 / 3838.74 518.75 / 518.75 Lab / Micro Data 09/26/23 05:23 09/26/23 05:23 Labs: Laboratory Results - last 24 hr 09/26/23 05:23: WBC 6.6, RBC 3.04 L, Hgb 9.5 L, Hct 29.8 L, MCV 98.0 H, MCH 31.3, MCHC 31.9 L, RDW Std Deviation 47.4 H, RDW Coeff of Ezequiel 13.2, Plt Count 113 L, MPV 9.6, Immature Gran % (Auto) 0.300, Neut % (Auto) 79.1 H, Lymph % (Auto) 12.3 L, [place] % (Auto) 6.8, Eos % (Auto) 1.2, Baso % (Auto) 0.3, Absolute Neuts (auto) 5.2, Absolute Lymphs (auto) 0.81 L, Nucleated RBC % 0, Sodium 138, Potassium 3.8, Chloride 108 H, Carbon Dioxide 25.0, Anion Gap 5, BUN 22 H, Creatinine 0.80, Estim Creat Clear Calc 77.60, Est GFR (MDRD) Af Amer 119, Est GFR (MDRD) Non-Af 98, BUN/Creatinine Ratio 27.3 H, Glucose 93, Calcium 7.7 L Micro: Microbiology 09/24/23 23:55 Blood Culture (Wb) - Anticubital Left Blood Culture - Preliminary 09/25/23 05:45 Mucosa - Nasopharyngeal Respiratory Panel (PCR) - Final 09/24/23 21:00 Nasal Secretion SARS-CoV-2 & FLU Antigen (Rapid) - Final Physical Exam Narrative General: Alert, Oriented x3, Cooperative, No apparent distress HEENT: Atraumatic, PERRLA, EOMI, Normocephalic Oral: Moist Mucosa Neck: Supple, No JVD Lungs: Diminished, Normal air movement, No rhonchi, No wheeze, No rales Cardiovascular: Regular rate, Regular Rhythm, Normal S1, Normal S2, No murmurs Abdomen: Soft, Non Tender, Non-Distended, No Hepato-splenomegaly Extremities: No edema, Capillary Refill Less than 3 Seconds Skin: No rashes, No breakdown Musculoskeletal: No Tenderness to Palpation of Joints or Extremities Neurological: Cranial nerves II-XII grossly intact, Motor Exam 5/5 strength throughout, Sensory exam intact to light touch and pain Psych/Mental Status: Normal Affect, Appropriate Assessment & Plan Assessment/Plan (1) Sepsis without septic shock: (2) Acute febrile illness: (3) Weakness: PLAN: Plan #Sepsis without shock with gram-negative randy bacteremia * etiology is not clear. I am not sure he has gastroenteritis * CT of the abdomen showed nonspecific small bowel changes. It also showed a small nonobstructing left renal calculi. * Chest x-ray showed no acute cardiopulmonary pathology. COVID and flu are negative. * Will discontinue IV vancomycin and continue with only IV Zosyn pending finalization of his blood cultures * No urine cultures were obtained this admission but he did have E. coli in his urine in 09/10/2023 that was fairly sensitive * Blood cultures with gram-negative randy, family states that his issues began several weeks ago which could be consistent with translocation from his urinary source #History of lumbar spine injury with fusion * had L spine fusion a few years ago. * PT.OT On board. Fall precautions. #Debility and weakness due to lumbar spine fusion: as above. 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 * Has had intermittent urinary retention * follow up with urology on outpatient basis #Hypertension; lisinopril and HCTZ on hold for now as BP was running low. WIll continue holding and hydrate gently with IVF and monitor. #Hyperlipidemia: on statin #GERD; on PPI DVT: Lovenox Charges/Coding Visit Charges Inpatient E&M: 21069 Subs Hosp L2 09/26/23 1102 <Electronically signed by Christoph Kilgore MD> Cosigner Signature (if applicable): CC: ~ Signed [facility] Work Phone: 1(835) 853-919412-31-2023 Consult note Author Elyssa Enrique [facility] September 25, 2023 1:12pm Note Date/Time September 25, 2023 12:50pm [facility] Medical Records Department [address] [place] [address] Pharmacokinetic/Renal -Consult 09/25/23 1248 MR#: [id number] Acct: [id number] Name: JAVIER BOND Rep #:[id number] : 1940 82 From: Hugo meza PCP: Dr. Francisco Bahena MD Status:ADM IN Location: [place] [address] Consult Antibiotic Management Pharmacy has been consulted to manage selected antibiotic: Vancomycin Type of Intervention Type of Consult: New start Suspected Infection Suspected Infection: Sepsis Labs Labs: Sodium 137 mmol/L (136-145) 09/25/23 05:18 Potassium 3.7 mmol/L (3.5-5.1) 09/25/23 05:18 Chloride 104 mmol/L (98-107) 09/25/23 05:18 Carbon Dioxide 26.0 mmol/L (21.0-32.0) 09/25/23 05:18 Anion Gap 7 (5-15) 09/25/23 05:18 BUN 22 mg/dL (7-18) H 09/25/23 05:18 Creatinine 1.07 mg/dL (0.70-1.30) 09/25/23 05:18 Est GFR (MDRD) Af Amer 85 mL/min (>60) 09/25/23 05:18 Est GFR (MDRD) Non-Af 71 mL/min (>60) 09/25/23 05:18 BUN/Creatinine Ratio 20.6 RATIO (10-20) H 09/25/23 05:18 Glucose 112 mg/dL (74-106) H 09/25/23 05:18 Microbiology Microbiology: Microbiology 09/25/23 05:45 Mucosa - Nasopharyngeal Respiratory Panel (PCR) - Final 09/24/23 21:00 Nasal Secretion SARS-CoV-2 & FLU Antigen (Rapid) - Final Dosing Weight Weight used for dosin.5 kg Estimated Creatinine Clearance Estimated Creatinine Clearance: 58ML/MIN Goal Trough Goal Trough: 15-20 mcg/mL Pharmacy Plan for Drug Dosing Pharmacy Plan for Drug Dosing: Give initial load dose of 2000mg IV x1, then continue with 750mg IV q12h per [facility] protocol. Will check a trough before the 4th total dose. Pharmacy Service will continue to monitor and adjust dosing as required. Follow-Up Labs Follow-Up Labs: Trough: Vancomycin Date/Time Labs Ordered Labs to be done on [date and time ordered]: 09/26/23 23:30 09/25/23 1251 <Electronically signed by Hugo Styles erg> Date _ Hugo Carver 09/25/23 1312 <Electronically signed by Elyssa vincent MD> Cosigner Signature (if applicable): Date Elyssa Enrique MD CC: ~ Signed [facility] Work Phone: 1(906) 970-118312-31-2023 Progress note Author Elyssa [facility] September 25, 2023 1:12pm Note Date/Time September 25, 2023 10:37am [facility] Medical Records Department [address] [facility] [place] [address] Progress Note 09/25/23 1034 MR#: [id number] Acct: [id number] Name: JAVIER BOND Rep #:[id number] : 1940 82 From: Elyssa Enrique MD PCP: Dr. Francisco Bahena MD Status:ADM IN Location: [facility] [id number] Subjective Subjective Patient seen and examined. was by his bedside. He complains of fever and chills. he denied any urinary symptoms. Review of systems is otherwise negative.He denied any nausea, vomiting or diarrhea. He actually has a history of constipation. Objective Data Objective Data Vital Signs: Vital Signs Temp Pulse Resp BP Pulse Ox O2 Del Method 99.6 F H 88 10 L 116/58 L 95 Room Air 09/25/23 06:16 09/25/23 06:16 09/25/23 06:25 09/25/23 06:16 09/25/23 06:16 09/25/23 06:16 Oxygen Delivery Method Room Air Weight: 164 lb 3.91 oz Body Mass Index (BMI) 22.8 Intake & Output: Intake and Output for Last 24 Hours 09/23/23 09/24/23 09/25/23 23:59 23:59 23:59 Intake Total 446.25 / 446.25 Output Total 250 / 250 Balance 196.25 / 196.25 Lab / Micro Data 09/25/23 05:18 09/25/23 05:18 Labs: Laboratory Results - last 24 hr 09/24/23 20:20: WBC 8.5, RBC 3.92 L, Hgb 12.1 L, Hct 38.5 L, MCV 98.2 H, MCH 30.9, MCHC 31.4 L, RDW Std Deviation 46.5 H, RDW Coeff of Ezequiel 13.1, Plt Count 171, MPV 9.0, Immature Gran % (Auto) 0.400, Neut % (Auto) 95.5 H, Lymph % (Auto)2.9 L, [place] % (Auto) 0.6, Eos % (Auto) 0.2, Baso % (Auto) 0.4, Absolute Neuts (auto) 8.1 H, Absolute Lymphs (auto) 0.25 L, Nucleated RBC % 0, Differential Comment SCANNED, Sodium 136, Potassium 4.3, Chloride 101, Carbon Dioxide 30.0, Anion Gap 5, BUN 24 H, Creatinine 1.08, Estim Creat Clear Calc 56.33, Est GFR (MDRD) Af Amer 84, Est GFR (MDRD) Non-Af 70, BUN/Creatinine Ratio 22.2 H, Glucose 110 H, Calcium 9.3, Troponin I High Sens 6 09/24/23 22:47: Urine Color Yellow, Urine Clarity Sl Cloudy, Urine pH 6.0, Ur Specific [place] 1.015, Urine Protein 30 H, Urine Glucose (UA) Normal, Urine Ketones 50 H, Urine Occult Blood 250 H, Urine Nitrite Negative, Urine Bilirubin Negative, Urine Urobilinogen Normal, Ur Leukocyte Esterase 500 H, Urine RBC 25-50 SEEN, Urine WBC 25-50 SEEN, Ur Squamous Epith Cells 0-5 SEEN, Ur Transition Epith Cell 0-5 SEEN, Urine Bacteria 0 SEEN, Urine Mucus 0 SEEN 09/24/23 23:55: Lactic Acid 1.6 09/25/23 05:18: WBC 10.7, RBC 3.41 L, Hgb 10.6 L, Hct 33.1 L, MCV 97.1 H, MCH 31.1, MCHC 32.0, RDW Std Deviation 46.6 H, RDW Coeff of Ezequiel 13.1, Plt Count 145 L, MPV 9.2, Sodium 137, Potassium 3.7, Chloride 104, Carbon Dioxide 26.0, Anion Gap 7, BUN 22 H, Creatinine 1.07, Estim Creat Clear Calc 58.02, Est GFR (MDRD) Af Amer 85, Est GFR (MDRD) Non-Af 71, BUN/Creatinine Ratio 20.6 H, Glucose 112 H, Calcium 8.2 L Micro: Microbiology 09/25/23 05:45 Mucosa - Nasopharyngeal Respiratory Panel (PCR) - Final 09/24/23 21:00 Nasal Secretion SARS-CoV-2 & FLU Antigen (Rapid) - Final Radiography Diagnostic Testing: Radiology Impression Chest X-Ray 09/24/23 20:10 IMPRESSION: No radiographic evidence of acute cardiopulmonary disease. Electronically Signed: Armando Thorpe MD at 20:39 EST , Abdomen/Pelvis CT 09/24/23 23:44 IMPRESSION: Nonspecific small bowel changes which may indicate enteritis in the appropriate clinical setting. Electronically Signed: Armando Thorpe MD at 0:40 EST , Physical Exam Const alert, oriented x3 and no apparent distress Constitutional Narrative: febrile General Appearance: cooperative HEENT normocephalic, head/scalp atraumatic, moist oral mucous membranes and oropharynxnormal Eyes PERRL and EOMs intact bilaterally Neck no lymphadenopathy and supple Lymph Lymphatic: no lymphadenopathy noted and no lymphedema noted Resp normal respiratory effort, normal air movement and clear to auscultation bilaterally Cardio regular rate, regular rhythm, S1 normal heart sound, S2 normal heart sound and no murmurs GI normal to inspection, nondistended, normoactive bowel sounds, soft to palpation,non-tender and non-distended Extremity normal capillary refill, no clubbing, cyanosis or edema and no calf tenderness General Extremity: no tenderness to palpation of joints or extremities Skin General Skin Exam: no breakdown Neuro CN's II-XII intact bilaterally, no focal motor deficits, no sensory deficits noted and deep tendon reflexes 2+ bilaterally Motor Exam: strength 5/5 throughout and general weakness Psych thought process normal and cooperative Appearance: appropriate Assessment & Plan Assessment/Plan (1) Sepsis without septic shock: (2) Acute febrile illness: (3) Weakness: PLAN: Plan #Sepsis without shock * etiology is not clear. I am not sure he has gastroenteritis [place] any diarrhea or vomiting * CT of the abdomen showed nonspecific small bowel changes. It also showed a small nonobstructing left renal calculi. * Chest x-ray showed no acute cardiopulmonary pathology. COVID and flu are not negative. * will switch antibiotics from IV ceftriaxone and metronidazole to IV vancomycin and zosyn for broader coverage * await blood cultures and urine cultures. * #History of lumbar spine injury with fusion * had L spine fusion a few years ago. * PT.OT On board. Fall precautions. * #Debility and weakness due to lumbar spine fusion: as above. 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 * Has had intermittent urinary retention * follow up with urology on outpatient basis * #Hypertension; lisinopril and HCTZ on hold for now as BP was running low. WIll continue holding and hydrate gently with IVF and monitor. #Hyperlipidemia: on statin #GERD; on PPI DVT prophylaxis; lovenox Charges/Coding Visit Charges Inpatient E&M: 73691 Subs Hosp L2 09/25/23 1312 <Electronically signed by Elyssa Enrique MD> Elyssa Enrique MD Cosigner Signature (if applicable): CC: ~ Signed [facility] Work Phone: 1(599) 797-257512-31-2023 History and physical note Author Cesar Orona [facility] September 25, 2023 2:04am Note Date/Time September 24, 2023 11:45pm [facility] Medical Records Department [address] [place] [address] H&P Exam - Hospitalist 09/24/23 2338 MR#: [id number] Acct: [id number] Name: JAVIER BOND Rep #:[id number] : 1940 82 From: Cesar hutchinson DO PCP: Dr. Francisco Bahena MD Status:ADM IN Location: [place] [address] HPI - General General Date of Admission: 09/25/23 Date of Service: 09/25/23 Chief Complaint: Fevers and rigors HPI Narrative JAVIER BOND, is a 82 M who presented to [facility] ED on 09/25/2023 with episodes of fevers and rigors at home. Patient seen at bedside in the ED, present. Patient was sitting up comfortably in bed, conversing normally, in no acute distress. Patient has history of kidney stones with frequent urinary tract infections, follows outpatient with urology. Was seen inthe ED on 09/10/2023 with left lower quadrant abdominal pain. UA was consistentwith infection, but CT abdomen pelvis showed no concern for kidney stones or forhydronephrosis. CT scan did show moderate degree of constipation. Patient was discharged home from the ED on Keflex and instructed to take stool softeners to assist with his constipation. Patient completed 10-day course of Keflex but continued to have left lower quadrant pain, so he had a UA checked by his PCP office again around 3 to 4 days ago and it still appeared infectious. Patient was started on Macrobid at that time. Patient then developed subjective fevers and rigors at home on the afternoon of 09/24. States he had several episodes ofa significant degree of shaking, and also developed nausea with a few episodes of vomiting, so they called EMS to bring him to the ED. Since arrival to the ED, patient has continued to have some shaking/rigors. Patient currently does feel somewhat improved from arrival after receiving IV fluids and doses of Zofran and Tylenol. However, patient still has significant shaking and some associated lightheadedness and weakness with ambulation. 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 Since that time,patient has had fairly persistent constipation and difficulty with stooling. Patient takes stool softeners at home, does not take MiraLAX or senna, does not use suppositories regularly. Does try to take in lots of fiber with his diet. Patient states that his bowel movements recently have been about his normal, meaning he has had fairly hard stools with a moderate amount of difficulty with expelling his stool. He notably denies any significant abdominal pain or tenderness during that time. His pain has consistently been in the left lower quadrant. Previously had a left inguinal hernia repair, but CT scans have been negative for recurrent hernia. Patient otherwise denies any acute concerns at this time. [facility] Medical History Abdominal pain Arthritis BPH (benign prostatic hyperplasia) Groin pain History of back problems History of hiatal hernia History of kidney stones Hypertension Inguinal hernia bilateral, non-recurrent Left inguinal hernia Right inguinal hernia Home Medications acetaminophen 500 mg tablet 500 mg PO PRN PRN Pain 04/03/17 [History Last Taken Unknown] finasteride 5 mg tablet 5 mg PO DAILY 04/03/17 [History Last Taken Unknown] hydrochlorothiazide 12.5 mg capsule 12.5 mg PO DAILY 04/03/17 [History Last Taken 07/18/19 05:30 12.5 MG] tamsulosin 0.4 mg capsule 0.4 mg PO DAILY 04/03/17 [History Last Taken Unknown] doxycycline hyclate 20 mg tablet 20 mg PO BID 03/13/19 [History Last Taken Unknown] metronidazole 0.75 % topical cream 1 applic topical BID 07/16/19 [History Last Taken Unknown] aspirin 81 mg tablet,delayed release (Rika Low Dose Aspirin) 81 mg PO DAILY 01/28/21 [History Last Taken Unknown] trazodone 50 mg tablet 25 mg PO QHS 01/28/21 [History Last Taken Unknown] multivitamin 1 tab PO DAILY 05/18/21 [History Last Taken Unknown] atorvastatin 10 mg tablet 1 tab PO QHS 05/03/22 [History Last Taken Unknown] docusate sodium 250 mg capsule 250 mg PO BID 05/03/22 [History Last Taken Unknown] furosemide 40 mg tablet (Lasix) 20 mg PO PRN PRN Edema 05/03/22 [History Last Taken Unknown] pantoprazole 40 mg tablet,delayed release 40 mg PO DAILY 05/03/22 [History Last Taken Unknown] nitrofurantoin monohydrate/macrocrystals 100 mg capsule (Macrobid) 100 mg PO Q12H 5 days #10 caps 01/02/23 [Rx Last Taken Unknown] d-mannose 1 ea PO DAILY 09/24/23 [History Last Taken Unknown] dupilumab 300 mg/2 mL subcutaneous pen injector ([place]) 300 mg subcut .every two weeks 09/24/23 [History Last Taken Unknown] lisinopril 5 mg tablet 5 mg PO DAILY 09/24/23 [History Last Taken Unknown] Allergy/AdvReac Type Severity Reaction Status Date / Time Iodinated Contrast Media Allergy Hives Verified 09/24/23 19:24 [CONTRASTS] azelaic acid [From Finacea] AdvReac Rash Verified 09/24/23 19:24 levofloxacin AdvReac Rash Verified 09/24/23 19:24 meloxicam [From Mobic] AdvReac Nausea Verified 09/24/23 19:24 misoprostol [From Cytotec] AdvReac Nausea Verified 09/24/23 19:24 nabumetone [From Relafen] AdvReac Nausea Verified 09/24/23 19:24 NSAIDS (Non-Steroidal AdvReac Nausea Verified 09/24/23 19:24 Anti-Inflamma sulfamethoxazole AdvReac Nausea Verified 09/24/23 19:24 [From Bactrim] terbinafine AdvReac Nausea Verified 09/24/23 19:24 trimethoprim [From Bactrim] AdvReac Nausea Verified 09/24/23 19:24 valdecoxib [From Bextra] AdvReac Other Verified 09/24/23 19:24 Family History Father Colon cancer Mother Cancer lung Hypertension Brother Cancer Surgical History history exacorporeal shock wave lithrotripsy history lap hiatal hernia repair History of bilateral cataract extraction History of colonoscopy (~02/2019) History of hemorrhoidectomy History of laparoscopic cholecystectomy History of left inguinal hernia repair (~07/18/19) History of right inguinal hernia repair history repair left thumb history ureteral stent insertion Hx of repair of left rotator cuff Hx of repair of right rotator cuff Social History household members: spouse Smoking Status: Never smoker alcohol intake: current alcohol intake frequency: a few times a month substance use type: does not use ROS Constitutional Constitutional: Reports chills, fever(s) and weakness; Denies fatigue Eyes Eyes: Denies change in vision Cardiovascular Cardiovascular: Denies chest pain Respiratory/Chest Respiratory/Chest: Denies cough Gastrointestinal Gastrointestinal: Reports constipation, nausea and vomiting; Denies abdominal pain or diarrhea Genitourinary Genitourinary: Reports urinary frequency; Denies burning urination, difficulty urinating, dysuria, urinary hesitancy, urinary incontinence or urinary urgency Musculoskeletal Musculoskeletal: Denies arthralgias or back pain Neurologic Neurologic: Denies dizziness, focal weakness or headache(s) Vital Signs Vital Signs Vital Signs: 09/24/23 19:25 09/24/23 20:25 09/24/23 22:57 Temperature 98.8 F Temperature Source Oral Pulse Rate 87 88 Respiratory Rate 18 18 Respiratory Pattern Normal Blood Pressure 108/56 L 106/44 L Blood Pressure Mean 73 64 Pulse Ox 97 100 Oxygen Delivery Method Room Air Room Air 09/24/23 23:34 Temperature 101.5 F H Temperature Source Pulse Rate 104 H Respiratory Rate 18 Respiratory Pattern Blood Pressure 120/52 L Blood Pressure Mean 74 Pulse Ox 96 Oxygen Delivery Method Weight Weight: 76.3 kg Body Mass Index (BMI) 24.1 Physical Exam Const alert, oriented x3, no apparent distress, average body habitus, healthy appearing and well nourished Constitutional Narrative: Pleasant elderly male, very talkative, sitting up comfortably in bed, conversingnormally, in no acute distress. General Appearance: cooperative, comfortable, well kempt and well developed HEENT normocephalic, head/scalp atraumatic, hearing grossly normal bilaterally, nasal mucous membranes and turbinates normal and moist oral mucous membranes Eyes PERRL, EOMs intact bilaterally and conjunctivae normal Neck full ROM, no lymphadenopathy and supple Lymph Lymphatic: no lymphadenopathy noted Chest inspection of chest normal Resp normal respiratory effort, normal air movement, no use of accessory muscles and clear to auscultation bilaterally Cardio no murmurs and peripheral pulses 2+ throughout Cardio Narrative: Sinus tachycardia. GI GI Narrative: Mild tenderness to palpation in left lower quadrant. Abdomen otherwise fairly soft, nondistended, nontender to palpation with normoactive bowel sounds. Back/Spine normal ROM Extremity normal to inspection, full ROM and no pedal edema Skin no rashes or lesions noted Neuro moves all extremities and no focal motor deficits Speech: speech normal Psych mental status grossly normal Results Lab / Micro Data 09/24/23 20:20 09/24/23 20:20 Labs: Laboratory Results - last 24 hr 09/24/23 20:20: WBC 8.5, RBC 3.92 L, Hgb 12.1 L, Hct 38.5 L, MCV 98.2 H, MCH 30.9, MCHC 31.4 L, RDW Std Deviation 46.5 H, RDW Coeff of Ezequiel 13.1, Plt Count 171, MPV 9.0, Immature Gran % (Auto) 0.400, Neut % (Auto) 95.5 H, Lymph % (Auto)2.9 L, [place] % (Auto) 0.6, Eos % (Auto) 0.2, Baso % (Auto) 0.4, Absolute Neuts (auto) 8.1 H, Absolute Lymphs (auto) 0.25 L, Nucleated RBC % 0, Differential Comment SCANNED, Sodium 136, Potassium 4.3, Chloride 101, Carbon Dioxide 30.0, Anion Gap 5, BUN 24 H, Creatinine 1.08, Estim Creat Clear Calc 56.33, Est GFR (MDRD) Af Amer 84, Est GFR (MDRD) Non-Af 70, BUN/Creatinine Ratio 22.2 H, Glucose 110 H, Calcium 9.3, Troponin I High Sens 6 09/24/23 22:47: Urine Color Yellow, Urine Clarity Sl Cloudy, Urine pH 6.0, Ur Specific [place] 1.015, Urine Protein 30 H, Urine Glucose (UA) Normal, Urine Ketones 50 H, Urine Occult Blood 250 H, Urine Nitrite Negative, Urine Bilirubin Negative, Urine Urobilinogen Normal, Ur Leukocyte Esterase 500 H, Urine RBC 25-50 SEEN, Urine WBC 25-50 SEEN, Ur Squamous Epith Cells 0-5 SEEN, Ur Transition Epith Cell 0-5 SEEN, Urine Bacteria 0 SEEN, Urine Mucus 0 SEEN Micro: Microbiology 09/24/23 21:00 Nasal Secretion SARS-CoV-2 & FLU Antigen (Rapid) - Final Imagaing Radiology Impression Chest X-Ray 09/24/23 20:10 IMPRESSION: No radiographic evidence of acute cardiopulmonary disease. Electronically Signed: Armando Thorpe MD at 20:39 EST , Assessment & Plan Assessment/Plan (1) Sepsis without septic shock: (2) Weakness: PLAN: Plan Patient is an 82-year-old male who presented to [facility] ED on09/25/2023 with fevers and rigors. 1. Sepsis without shock, concern for gastroenteritis, history of constipation Febrile to 101.5F, sinus tachycardia to low 100s, mildly hypotensive with suspected intra-abdominal source. qSOFA score of 2 (SBP < 100, RR > 22). Meetssepsis criteria. CT abdomen pelvis showed nonspecific small bowel changes concerning for enteritis. UA noninfectious, CT scan with small nonobstructing left renal calculi, no hydronephrosis, no evidence of cystitis. Chest x-ray nonacute. COVID and flu negative. ? Admit under inpatient status to PCU. Will start ceftriaxone and IV Flagyl forintra-abdominal coverage. Blood cultures pending. Stool PCR ordered. LR for maintenance IV fluids. Will start senna and MiraLAX scheduled with Dulcolax suppositories as needed for constipation. Monitor closely. 2. Weakness with mild debility, history of lumbar spine injury with spinal fusion Lives at home with in trilevel home. Had L-spine fusion about 3 years ago. Still is able to do all things around the home without issue. Walks down his steps backward due to his spinal fusion, no issues with any falls. Patient doesreport considerable weakness currently, likely due to active infection. ? PT/OT/case management consulted. 3. History of intermittent urinary retention post spinal fusion, history of recurrent nephrolithiasis with UTIs, BPH Patient follows with [facility]. Has history of intermittent urinary retention after his spinal fusion procedure 3 years ago. Was apparentlytold by first urologist that he should intermittently straight cath at home, so he and got a second opinion from [facility] urology. Has not required catheter athome to this point. History of nephrolithiasis with pyelonephritis and septic shock about 3 years ago, has had recurrent kidney stones with mild UTIs since then. Most recent UTI was about 2 weeks ago as noted in HPI. ? UA noninfectious, CT abdomen pelvis with small nonobstructing nephrolithiasis and no evidence of hydronephrosis on this admission. No concern for urinary retention at this time. Continue home Flomax and finasteride. Chronic medical conditions: ? Hypertension: Holding home lisinopril, hydrochlorothiazide for now, restart asable. ? Hyperlipidemia: Continue home statin. ? GERD: Continue home PPI. DVT prophylaxis: Lovenox CODE STATUS: Full code, verified Expected disposition: Home, 2 to 3 days Total clinical time spent by myself addressing the patient's medical issues, reviewing all the data, and collaborating with patient's care team: 55 minutes. Charges/Coding Visit Charges Inpatient E&M: 84938 Init Hosp L2 09/25/23 0204 <Electronically signed by Cesar Orona DO> Cosigner Signature (if applicable): CC: Dr. Cesar Orona DO; Dr. Francisco Bahena MD~ Signed [facility] Work Phone: 1(489) 719-579012-31-2023 Discharge summary Author Aly Li [facility] September 25, 2023 12:57am Note Date/Time September 24, 2023 7:48pm [facility] Medical Records Department [address] [place] [address] Emergency Department Summary 09/24/23 MR#: [id number] Acct: [id number] Name: JAVIER BOND Rep #:[id number] : 1940 82 From: Valeria FERGUSON PCP: Dr. Francisco Bahena MD Status:REG ER Location: ED ADDENDUM by Dr. Aly Li DO on 09/25/23 at 0056 I do not believe the patient is septic. Patient does not appear significantly hypovolemic and demonstrates no signs of shock. His lactic acid is normal. I believe he has a viral enteritis and a resolving UTI. 09/25/23 0056<Electronically signed by Aly Li DO> Cosigner Signature (if applicable): 09/25/23 0048 <Electronically signed by Aly Li DO> cc: Dr. Francisco Bahena MD ~* Signed HPI <PHYLLIS Mcgwoan - Last Filed: 09/24/23 20:59> History of Present Illness Chief Complaint: Other, Pain/Inj Narrative Narrative: 82-year-old male with past medical history of HTN, HLD, presents with chills andshaking that started this evening. He wanted to walk downstairs to rest in his recliner. He goes down the stairs backwards and about care home down and started to feel lightheaded and leaned himself forward to rest. He did not fall or hit his head. He did not pass out. His helped him back down the stairs and used his walker to go over to his recliner and then states he was more shaky allover. Family states it was not seizure activity. He was awake and alert while this was happening. He is being treated for UTI. About 2 weeks ago and left lower quadrant abdominal pain and states he always has urinary frequency and wasseen here and diagnosed with a UTI and prescribed Keflex. states he took it for 10 days but still had the left lower quadrant discomfort so they checked her urine again at his primary care's office and prescribed Macrobid. He stateshis left inguinal pain is very mild 2/10. He has no dysuria or hematuria. No flank pain. No fever. No nausea or vomiting. No chest pain or shortness of breath. [facility] <PHYLLIS Mcgowan - Last Filed: 09/24/23 20:59> [facility] Medical History Abdominal pain Arthritis BPH (benign prostatic hyperplasia) Groin pain History of back problems History of hiatal hernia History of kidney stones Hypertension Inguinal hernia bilateral, non-recurrent Left inguinal hernia Right inguinal hernia Home Medications acetaminophen 500 mg tablet 500 mg PO PRN PRN Pain 04/03/17 [History Last Taken Unknown] finasteride 5 mg tablet 5 mg PO DAILY 04/03/17 [History Last Taken Unknown] hydrochlorothiazide 12.5 mg capsule 12.5 mg PO DAILY 04/03/17 [History Last Taken 07/18/19 05:30 12.5 MG] tamsulosin 0.4 mg capsule 0.4 mg PO DAILY 04/03/17 [History Last Taken Unknown] doxycycline hyclate 20 mg tablet 20 mg PO BID 03/13/19 [History Last Taken Unknown] metronidazole 0.75 % topical cream 1 applic topical BID 07/16/19 [History Last Taken Unknown] aspirin 81 mg tablet,delayed release (Rika Low Dose Aspirin) 81 mg PO DAILY 01/28/21 [History Last Taken Unknown] trazodone 50 mg tablet 25 mg PO QHS 01/28/21 [History Last Taken Unknown] multivitamin 1 tab PO DAILY 05/18/21 [History Last Taken Unknown] atorvastatin 10 mg tablet 1 tab PO QHS 05/03/22 [History Last Taken Unknown] docusate sodium 250 mg capsule 250 mg PO BID 05/03/22 [History Last Taken Unknown] furosemide 40 mg tablet (Lasix) 20 mg PO PRN PRN Edema 05/03/22 [History Last Taken Unknown] pantoprazole 40 mg tablet,delayed release 40 mg PO DAILY 05/03/22 [History Last Taken Unknown] nitrofurantoin monohydrate/macrocrystals 100 mg capsule (Macrobid) 100 mg PO Q12H 5 days #10 caps 01/02/23 [Rx Last Taken Unknown] d-mannose 1 ea PO DAILY 09/24/23 [History Last Taken Unknown] dupilumab 300 mg/2 mL subcutaneous pen injector (Dupixent) 300 mg subcut .every two weeks 09/24/23 [History Last Taken Unknown] lisinopril 5 mg tablet 5 mg PO DAILY 09/24/23 [History Last Taken Unknown] Allergy/AdvReac Type Severity Reaction Status Date / Time Iodinated Contrast Media Allergy Hives Verified 09/24/23 19:24 [CONTRASTS] azelaic acid [From Finacea] AdvReac Rash Verified 09/24/23 19:24 levofloxacin AdvReac Rash Verified 09/24/23 19:24 meloxicam [From Mobic] AdvReac Nausea Verified 09/24/23 19:24 misoprostol [From Cytotec] AdvReac Nausea Verified 09/24/23 19:24 nabumetone [From Relafen] AdvReac Nausea Verified 09/24/23 19:24 NSAIDS (Non-Steroidal AdvReac Nausea Verified 09/24/23 19:24 Anti-Inflamma sulfamethoxazole AdvReac Nausea Verified 09/24/23 19:24 [From Bactrim] terbinafine AdvReac Nausea Verified 09/24/23 19:24 trimethoprim [From Bactrim] AdvReac Nausea Verified 09/24/23 19:24 valdecoxib [From Bextra] AdvReac Other Verified 09/24/23 19:24 Family History Father Colon cancer Mother Cancer lung Hypertension Brother Cancer Surgical History history exacorporeal shock wave lithrotripsy history lap hiatal hernia repair History of bilateral cataract extraction History of colonoscopy (~02/2019) History of hemorrhoidectomy History of laparoscopic cholecystectomy History of left inguinal hernia repair (~07/18/19) History of right inguinal hernia repair history repair left thumb history ureteral stent insertion Hx of repair of left rotator cuff Hx of repair of right rotator cuff Social History household members: spouse Smoking Status: Never smoker alcohol intake: current alcohol intake frequency: a few times a month substance use type: does not use ROS <PHYLLIS Mcgowan - Last Filed: 09/24/23 20:59> ROS ED ROS Narrative Constitutional: Positive for chills. Negative for fever. ENT: Negative for sore throat, rhinorrhea. CVS: Negative for palpitations, chest pain, syncope. Respiratory: Negative for shortness of breath, cough. GI: Negative for abdominal pain, nausea, vomiting, diarrhea, constipation, melena, hematochezia. : Positive for frequency. Negative for dysuria, hematuria. Neuro: Negative for headache. EXAM <PHYLLIS Mcgowan - Last Filed: 09/24/23 20:59> Physical Exam Narrative Exam Narrative: CONST: Patient sitting in no acute distress. EYES: Normal inspection. NECK: Normal inspection. RESP: No respiratory distress, CTAB. CVS: Regular rate and rhythm, no murmur, no gallop. ABD: Soft with mild left inguinal tenderness with no palpable hernia, no guarding or rebound, nondistended. Back: Normal inspection, no CVA tenderness. SKIN: Color normal, no rash, warm, dry, intact. EXTREMITIES: Normal appearance, no pedal edema. NEURO: Oriented x4. PSYCH: Normal affect. Const Vital Signs: 09/24/23 19:25 09/24/23 20:25 09/24/23 22:57 Temperature 98.8 F Temperature Source Oral Pulse Rate 87 88 Respiratory Rate 18 18 Respiratory Pattern Normal Blood Pressure 108/56 L 106/44 L Blood Pressure Mean 73 64 Pulse Ox 97 100 Oxygen Delivery Method Room Air Room Air 09/24/23 23:34 09/25/23 00:07 Temperature 101.5 F H Temperature Source Pulse Rate 104 H 97 Respiratory Rate 18 16 Respiratory Pattern Blood Pressure 120/52 L 102/56 L Blood Pressure Mean 74 71 Pulse Ox 96 94 Oxygen Delivery Method Room Air <Dr. Aly Li DO - Last Filed: 09/25/23 00:45> Physical Exam Const Vital Signs: 09/24/23 19:25 09/24/23 20:25 09/24/23 22:57 Temperature 98.8 F Temperature Source Oral Pulse Rate 87 88 Respiratory Rate 18 18 Respiratory Pattern Normal Blood Pressure 108/56 L 106/44 L Blood Pressure Mean 73 64 Pulse Ox 97 100 Oxygen Delivery Method Room Air Room Air 09/24/23 23:34 09/25/23 00:07 Temperature 101.5 F H Temperature Source Pulse Rate 104 H 97 Respiratory Rate 18 16 Respiratory Pattern Blood Pressure 120/52 L 102/56 L Blood Pressure Mean 74 71 Pulse Ox 96 94 Oxygen Delivery Method Room Air MDM <PHYLLIS Mcgowan - Last Filed: 09/24/23 20:59> MDM MDM Narrative Medical decision making narrative: History gathered from: Patient and spouse Patient had chills and rigors this evening. He is taking Macrobid for UTI. He appears well and nontoxic. Vital signs stable. His exam is benign. He has mild left inguinal tenderness which has been present for the last several weeks. He had negative workup for this here on 09/10 with any CAT scan. Differential for his symptoms today include developing viral illness, pneumonia, UTI among others. Labs and CXR and UA were ordered. White count is normal at 8.5. Hemoglobin of 12.1 is baseline. CXR is negative. EKG is sinus rhythm with no acute ischemic changes. Lab Data Attestation: I reviewed the patient's lab results. Labs: Laboratory Results - last 24 hr 09/24/23 09/24/23 09/24/23 20:20 22:47 23:55 WBC 8.5 RBC 3.92 L Hgb 12.1 L Hct 38.5 L MCV 98.2 H MCH 30.9 MCHC 31.4 L RDW Std Deviation 46.5 H RDW Coeff of Ezequiel 13.1 Plt Count 171 MPV 9.0 Immature Gran % (Auto) 0.400 Neut % (Auto) 95.5 H Lymph % (Auto) 2.9 L [place] % (Auto) 0.6 Eos % (Auto) 0.2 Baso % (Auto) 0.4 Absolute Neuts (auto) 8.1 H Absolute Lymphs (auto) 0.25 L Nucleated RBC % 0 Differential Comment SCANNED Sodium 136 Potassium 4.3 Chloride 101 Carbon Dioxide 30.0 Anion Gap 5 BUN 24 H Creatinine 1.08 Estim Creat Clear Calc 56.33 Est GFR (MDRD) Af Amer 84 Est GFR (MDRD) Non-Af 70 BUN/Creatinine Ratio 22.2 H Glucose 110 H Lactic Acid 1.6 Calcium 9.3 Troponin I High Sens 6 Urine Color Yellow Urine Clarity Sl Cloudy Urine pH 6.0 Ur Specific [place] 1.015 Urine Protein 30 H Urine Glucose (UA) Normal Urine Ketones 50 H Urine Occult Blood 250 H Urine Nitrite Negative Urine Bilirubin Negative Urine Urobilinogen Normal Ur Leukocyte Esterase 500 H Urine RBC 25-50 SEEN Urine WBC 25-50 SEEN Ur Squamous Epith Cells 0-5 SEEN Ur Transition Epith Cell 0-5 SEEN Urine Bacteria 0 SEEN Urine Mucus 0 SEEN Radiography Diagnostic Testing: Clinical Impression(s) from Imaging Studies Chest X-Ray 09/24/23 20:10 IMPRESSION: No radiographic evidence of acute cardiopulmonary disease. Electronically Signed: Armando Thorpe MD at 20:39 EST Reading Location ID and State: [facility] / [place] Tel , Service support , Abdomen/Pelvis CT 09/24/23 23:44 IMPRESSION: Nonspecific small bowel changes which may indicate enteritis in the appropriate clinical setting. Electronically Signed: Armando Thorpe MD at 0:40 EST Reading Location ID and State: [address] [place] [address] Tel , Service support , ED attending interpretation of 1-view chest x-ray shows normal heart size, no acute infiltrate, edema, or effusion. EKG Initial EKG: Attestation: I personally reviewed and interpreted this EKG as follows: Interpretation: Sinus Rhythm and No Acute Injury Pattern Comments: Normal sinus rhythm 87 bpm Normal intervals, no ST changes <Dr. Aly Li, DO - Last Filed: 09/25/23 00:45> [facility] MDM Narrative Medical decision making narrative: History gathered from: Patient and spouse Patient had chills and rigors this evening. He is taking Macrobid for UTI. He appears well and nontoxic. Vital signs stable. His exam is benign. He has mild left inguinal tenderness which has been present for the last several weeks. He had negative workup for this here on 09/10 with any CAT scan. Differential for his symptoms today include developing viral illness, pneumonia, UTI among others. Labs and CXR and UA were ordered. White count is normal at 8.5. Hemoglobin of 12.1 is baseline. CXR is negative. EKG is sinus rhythm with no acute ischemic changes. Patient got up to urinate and had an apparent near syncopal episode. He then began to shake and temperature was noted to go up to 101.5. The patient subsequently has developed vomiting. He denies any significant abdominal pain. Blood cultures lactic acid IV fluids Tylenol and Zofran were ordered. The urinespecimens really not significantly impressive. It is negative nitrates it 25-50white cells 25-50 red cells no bacteria. I do wonder if the symptoms today are more due to an underlying viral infection. I think it is reasonable to observe him in the hospital overnight see if new symptoms develop. Control fever hydrate and control nausea vomiting. Hospitalist contacted and is requested a CT of the abdomen pelvis. This was obtained and shows some changes consistent with an enteritis. This would fit the clinical picture of fever and now vomiting. History & Record Review Discussion w/independent historian: Patient and Significant other Lab Data Labs: Laboratory Results - last 24 hr 09/24/23 09/24/23 09/24/23 20:20 22:47 23:55 WBC 8.5 RBC 3.92 L Hgb 12.1 L Hct 38.5 L MCV 98.2 H MCH 30.9 MCHC 31.4 L RDW Std Deviation 46.5 H RDW Coeff of Ezequiel 13.1 Plt Count 171 MPV 9.0 Immature Gran % (Auto) 0.400 Neut % (Auto) 95.5 H Lymph % (Auto) 2.9 L [place] % (Auto) 0.6 Eos % (Auto) 0.2 Baso % (Auto) 0.4 Absolute Neuts (auto) 8.1 H Absolute Lymphs (auto) 0.25 L Nucleated RBC % 0 Differential Comment SCANNED Sodium 136 Potassium 4.3 Chloride 101 Carbon Dioxide 30.0 Anion Gap 5 BUN 24 H Creatinine 1.08 Estim Creat Clear Calc 56.33 Est GFR (MDRD) Af Amer 84 Est GFR (MDRD) Non-Af 70 BUN/Creatinine Ratio 22.2 H Glucose 110 H Lactic Acid 1.6 Calcium 9.3 Troponin I High Sens 6 Urine Color Yellow Urine Clarity Sl Cloudy Urine pH 6.0 Ur Specific [place] 1.015 Urine Protein 30 H Urine Glucose (UA) Normal Urine Ketones 50 H Urine Occult Blood 250 H Urine Nitrite Negative Urine Bilirubin Negative Urine Urobilinogen Normal Ur Leukocyte Esterase 500 H Urine RBC 25-50 SEEN Urine WBC 25-50 SEEN Ur Squamous Epith Cells 0-5 SEEN Ur Transition Epith Cell 0-5 SEEN Urine Bacteria 0 SEEN Urine Mucus 0 SEEN Radiography Diagnostic Testing: Clinical Impression(s) from Imaging Studies Chest X-Ray 09/24/23 20:10 IMPRESSION: No radiographic evidence of acute cardiopulmonary disease. Electronically Signed: Armando Thorpe MD at 20:39 EST , Abdomen/Pelvis CT 09/24/23 23:44 IMPRESSION: Nonspecific small bowel changes which may indicate enteritis in the appropriate clinical setting. Electronically Signed: Armando Thorpe MD at 0:40 EST , Management Discussion w/another healthcare provider: Hospitalist Discharge Plan Dx/Rx/DC Orders Clinical Impression: Near syncope, Acute UTI, Vomiting, Acute febrile illness Disposition Disposition: Acute Care Hospital [facility] What to do if you have Problems For any increased pain, shortness of breath, bleeding, nausea or vomiting, chestpain, or any unexpected problems, contact your Primary Care Provider. Call [facility] ([phone]) or report to the closest Emergency Room. Call 911 if necessary. 09/24/232058 <Electronically signed by Valeria FERGUSON> Cosigner Signature (if applicable): 09/25/2347 <Electronically signed by Aly Li DO> CC: Dr. Francisco Bahena MD ~ Signed [facility] Work Phone: 1(185) 554-228712-30-2023 Discharge summary Author Aly Li [facility] September 25, 2023 12:57am Note Date/Time September 24, 2023 7:48pm [facility] Medical Records Department [address] [place] [address] Emergency Department Summary 09/24/23 MR#: [id number] Acct: [id number] Name: JAVIER BOND Rep #:[id number] : 1940 82 From: Valeria FERGUSON PCP: Dr. Francisco Bahena MD Status:REG ER Location: ED ADDENDUM by Dr. Aly Li DO on 09/25/23 at 0056 I do not believe the patient is septic. Patient does not appear significantly hypovolemic and demonstrates no signs of shock. His lactic acid is normal. I believe he has a viral enteritis and a resolving UTI. 09/25/2355<Electronically signed by Aly Li DO> Cosigner Signature (if applicable): 09/25/2347 <Electronically signed by Aly Li DO> cc: Dr. Francisco Bahena MD ~* Signed HPI <PHYLLIS Mcgowan - Last Filed: 09/24/23 20:59> History of Present Illness Chief Complaint: Other, Pain/Inj Narrative Narrative: 82-year-old male with past medical history of HTN, HLD, presents with chills andshaking that started this evening. He wanted to walk downstairs to rest in his recliner. He goes down the stairs backwards and about care home down and started to feel lightheaded and leaned himself forward to rest. He did not fall or hit his head. He did not pass out. His helped him back down the stairs and used his walker to go over to his recliner and then states he was more shaky allover. Family states it was not seizure activity. He was awake and alert while this was happening. He is being treated for UTI. About 2 weeks ago and left lower quadrant abdominal pain and states he always has urinary frequency and wasseen here and diagnosed with a UTI and prescribed Keflex. states he took it for 10 days but still had the left lower quadrant discomfort so they checked her urine again at his primary care's office and prescribed Macrobid. He stateshis left inguinal pain is very mild 2/10. He has no dysuria or hematuria. No flank pain. No fever. No nausea or vomiting. No chest pain or shortness of breath. [facility] <PHYLLIS Mcgowan - Last Filed: 09/24/23 20:59> [facility] Medical History Abdominal pain Arthritis BPH (benign prostatic hyperplasia) Groin pain History of back problems History of hiatal hernia History of kidney stones Hypertension Inguinal hernia bilateral, non-recurrent Left inguinal hernia Right inguinal hernia Home Medications acetaminophen 500 mg tablet 500 mg PO PRN PRN Pain 04/03/17 [History Last Taken Unknown] finasteride 5 mg tablet 5 mg PO DAILY 04/03/17 [History Last Taken Unknown] hydrochlorothiazide 12.5 mg capsule 12.5 mg PO DAILY 04/03/17 [History Last Taken 07/18/19 05:30 12.5 MG] tamsulosin 0.4 mg capsule 0.4 mg PO DAILY 04/03/17 [History Last Taken Unknown] doxycycline hyclate 20 mg tablet 20 mg PO BID 03/13/19 [History Last Taken Unknown] metronidazole 0.75 % topical cream 1 applic topical BID 07/16/19 [History Last Taken Unknown] aspirin 81 mg tablet,delayed release (Rika Low Dose Aspirin) 81 mg PO DAILY 01/28/21 [History Last Taken Unknown] trazodone 50 mg tablet 25 mg PO QHS 01/28/21 [History Last Taken Unknown] multivitamin 1 tab PO DAILY 05/18/21 [History Last Taken Unknown] atorvastatin 10 mg tablet 1 tab PO QHS 05/03/22 [History Last Taken Unknown] docusate sodium 250 mg capsule 250 mg PO BID 05/03/22 [History Last Taken Unknown] furosemide 40 mg tablet (Lasix) 20 mg PO PRN PRN Edema 05/03/22 [History Last Taken Unknown] pantoprazole 40 mg tablet,delayed release 40 mg PO DAILY 05/03/22 [History Last Taken Unknown] nitrofurantoin monohydrate/macrocrystals 100 mg capsule (Macrobid) 100 mg PO Q12H 5 days #10 caps 01/02/23 [Rx Last Taken Unknown] d-mannose 1 ea PO DAILY 09/24/23 [History Last Taken Unknown] dupilumab 300 mg/2 mL subcutaneous pen injector (Edvert) 300 mg subcut .every two weeks 09/24/23 [History Last Taken Unknown] lisinopril 5 mg tablet 5 mg PO DAILY 09/24/23 [History Last Taken Unknown] Allergy/AdvReac Type Severity Reaction Status Date / Time Iodinated Contrast Media Allergy Hives Verified 09/24/23 19:24 [CONTRASTS] azelaic acid [From Finacea] AdvReac Rash Verified 09/24/23 19:24 levofloxacin AdvReac Rash Verified 09/24/23 19:24 meloxicam [From Mobic] AdvReac Nausea Verified 09/24/23 19:24 misoprostol [From Cytotec] AdvReac Nausea Verified 09/24/23 19:24 nabumetone [From Relafen] AdvReac Nausea Verified 09/24/23 19:24 NSAIDS (Non-Steroidal AdvReac Nausea Verified 09/24/23 19:24 Anti-Inflamma sulfamethoxazole AdvReac Nausea Verified 09/24/23 19:24 [From Bactrim] terbinafine AdvReac Nausea Verified 09/24/23 19:24 trimethoprim [From Bactrim] AdvReac Nausea Verified 09/24/23 19:24 valdecoxib [From Bextra] AdvReac Other Verified 09/24/23 19:24 Family History Father Colon cancer Mother Cancer lung Hypertension Brother Cancer Surgical History history exacorporeal shock wave lithrotripsy history lap hiatal hernia repair History of bilateral cataract extraction History of colonoscopy (~02/2019) History of hemorrhoidectomy History of laparoscopic cholecystectomy History of left inguinal hernia repair (~07/18/19) History of right inguinal hernia repair history repair left thumb history ureteral stent insertion Hx of repair of left rotator cuff Hx of repair of right rotator cuff Social History household members: spouse Smoking Status: Never smoker alcohol intake: current alcohol intake frequency: a few times a month substance use type: does not use ROS <PHYLLIS Mcgowan - Last Filed: 09/24/23 20:59> ROS ED ROS Narrative Constitutional: Positive for chills. Negative for fever. ENT: Negative for sore throat, rhinorrhea. CVS: Negative for palpitations, chest pain, syncope. Respiratory: Negative for shortness of breath, cough. GI: Negative for abdominal pain, nausea, vomiting, diarrhea, constipation, melena, hematochezia. : Positive for frequency. Negative for dysuria, hematuria. Neuro: Negative for headache. EXAM <PHYLLIS Mcgowan - Last Filed: 09/24/23 20:59> Physical Exam Narrative Exam Narrative: CONST: Patient sitting in no acute distress. EYES: Normal inspection. NECK: Normal inspection. RESP: No respiratory distress, CTAB. CVS: Regular rate and rhythm, no murmur, no gallop. ABD: Soft with mild left inguinal tenderness with no palpable hernia, no guarding or rebound, nondistended. Back: Normal inspection, no CVA tenderness. SKIN: Color normal, no rash, warm, dry, intact. EXTREMITIES: Normal appearance, no pedal edema. NEURO: Oriented x4. PSYCH: Normal affect. Const Vital Signs: 09/24/23 19:25 09/24/23 20:25 09/24/23 22:57 Temperature 98.8 F Temperature Source Oral Pulse Rate 87 88 Respiratory Rate 18 18 Respiratory Pattern Normal Blood Pressure 108/56 L 106/44 L Blood Pressure Mean 73 64 Pulse Ox 97 100 Oxygen Delivery Method Room Air Room Air 09/24/23 23:34 09/25/23 00:07 Temperature 101.5 F H Temperature Source Pulse Rate 104 H 97 Respiratory Rate 18 16 Respiratory Pattern Blood Pressure 120/52 L 102/56 L Blood Pressure Mean 74 71 Pulse Ox 96 94 Oxygen Delivery Method Room Air <Dr. Aly Li DO - Last Filed: 09/25/23 00:45> Physical Exam Const Vital Signs: 09/24/23 19:25 09/24/23 20:25 09/24/23 22:57 Temperature 98.8 F Temperature Source Oral Pulse Rate 87 88 Respiratory Rate 18 18 Respiratory Pattern Normal Blood Pressure 108/56 L 106/44 L Blood Pressure Mean 73 64 Pulse Ox 97 100 Oxygen Delivery Method Room Air Room Air 09/24/23 23:34 09/25/23 00:07 Temperature 101.5 F H Temperature Source Pulse Rate 104 H 97 Respiratory Rate 18 16 Respiratory Pattern Blood Pressure 120/52 L 102/56 L Blood Pressure Mean 74 71 Pulse Ox 96 94 Oxygen Delivery Method Room Air MDM <PHYLLIS Mcgowan - Last Filed: 09/24/23 20:59> [facility] Narrative Medical decision making narrative: History gathered from: Patient and spouse Patient had chills and rigors this evening. He is taking Macrobid for UTI. He appears well and nontoxic. Vital signs stable. His exam is benign. He has mild left inguinal tenderness which has been present for the last several weeks. He had negative workup for this here on 09/10 with any CAT scan. Differential for his symptoms today include developing viral illness, pneumonia, UTI among others. Labs and CXR and UA were ordered. White count is normal at 8.5. Hemoglobin of 12.1 is baseline. CXR is negative. EKG is sinus rhythm with no acute ischemic changes. Lab Data Attestation: I reviewed the patient's lab results. Labs: Laboratory Results - last 24 hr 09/24/23 09/24/23 09/24/23 20:20 22:47 23:55 WBC 8.5 RBC 3.92 L Hgb 12.1 L Hct 38.5 L MCV 98.2 H MCH 30.9 MCHC 31.4 L RDW Std Deviation 46.5 H RDW Coeff of Ezequiel 13.1 Plt Count 171 MPV 9.0 Immature Gran % (Auto) 0.400 Neut % (Auto) 95.5 H Lymph % (Auto) 2.9 L [place] % (Auto) 0.6 Eos % (Auto) 0.2 Baso % (Auto) 0.4 Absolute Neuts (auto) 8.1 H Absolute Lymphs (auto) 0.25 L Nucleated RBC % 0 Differential Comment SCANNED Sodium 136 Potassium 4.3 Chloride 101 Carbon Dioxide 30.0 Anion Gap 5 BUN 24 H Creatinine 1.08 Estim Creat Clear Calc 56.33 Est GFR (MDRD) Af Amer 84 Est GFR (MDRD) Non-Af 70 BUN/Creatinine Ratio 22.2 H Glucose 110 H Lactic Acid 1.6 Calcium 9.3 Troponin I High Sens 6 Urine Color Yellow Urine Clarity Sl Cloudy Urine pH 6.0 Ur Specific [place] 1.015 Urine Protein 30 H Urine Glucose (UA) Normal Urine Ketones 50 H Urine Occult Blood 250 H Urine Nitrite Negative Urine Bilirubin Negative Urine Urobilinogen Normal Ur Leukocyte Esterase 500 H Urine RBC 25-50 SEEN Urine WBC 25-50 SEEN Ur Squamous Epith Cells 0-5 SEEN Ur Transition Epith Cell 0-5 SEEN Urine Bacteria 0 SEEN Urine Mucus 0 SEEN Radiography Diagnostic Testing: Clinical Impression(s) from Imaging Studies Chest X-Ray 09/24/23 20:10 IMPRESSION: No radiographic evidence of acute cardiopulmonary disease. Electronically Signed: Armando Thorpe MD at 20:39 EST , Abdomen/Pelvis CT 09/24/23 23:44 IMPRESSION: Nonspecific small bowel changes which may indicate enteritis in the appropriate clinical setting. Electronically Signed: Armando Thorpe MD at 0:40 EST , ED attending interpretation of 1-view chest x-ray shows normal heart size, no acute infiltrate, edema, or effusion. EKG Initial EKG: Attestation: I personally reviewed and interpreted this EKG as follows: Interpretation: Sinus Rhythm and No Acute Injury Pattern Comments: Normal sinus rhythm 87 bpm Normal intervals, no ST changes <Dr. Aly Li, DO - Last Filed: 09/25/23 00:45> [facility] MDM Narrative Medical decision making narrative: History gathered from: Patient and spouse Patient had chills and rigors this evening. He is taking Macrobid for UTI. He appears well and nontoxic. Vital signs stable. His exam is benign. He has mild left inguinal tenderness which has been present for the last several weeks. He had negative workup for this here on 09/10 with any CAT scan. Differential for his symptoms today include developing viral illness, pneumonia, UTI among others. Labs and CXR and UA were ordered. White count is normal at 8.5. Hemoglobin of 12.1 is baseline. CXR is negative. EKG is sinus rhythm with no acute ischemic changes. Patient got up to urinate and had an apparent near syncopal episode. He then began to shake and temperature was noted to go up to 101.5. The patient subsequently has developed vomiting. He denies any significant abdominal pain. Blood cultures lactic acid IV fluids Tylenol and Zofran were ordered. The urinespecimens really not significantly impressive. It is negative nitrates it 25-50white cells 25-50 red cells no bacteria. I do wonder if the symptoms today are more due to an underlying viral infection. I think it is reasonable to observe him in the hospital overnight see if new symptoms develop. Control fever hydrate and control nausea vomiting. Hospitalist contacted and is requested a CT of the abdomen pelvis. This was obtained and shows some changes consistent with an enteritis. This would fit the clinical picture of fever and now vomiting. History & Record Review Discussion w/independent historian: Patient and Significant other Lab Data Labs: Laboratory Results - last 24 hr 09/24/23 09/24/23 09/24/23 20:20 22:47 23:55 WBC 8.5 RBC 3.92 L Hgb 12.1 L Hct 38.5 L MCV 98.2 H MCH 30.9 MCHC 31.4 L RDW Std Deviation 46.5 H RDW Coeff of Ezequiel 13.1 Plt Count 171 MPV 9.0 Immature Gran % (Auto) 0.400 Neut % (Auto) 95.5 H Lymph % (Auto) 2.9 L [place] % (Auto) 0.6 Eos % (Auto) 0.2 Baso % (Auto) 0.4 Absolute Neuts (auto) 8.1 H Absolute Lymphs (auto) 0.25 L Nucleated RBC % 0 Differential Comment SCANNED Sodium 136 Potassium 4.3 Chloride 101 Carbon Dioxide 30.0 Anion Gap 5 BUN 24 H Creatinine 1.08 Estim Creat Clear Calc 56.33 Est GFR (MDRD) Af Amer 84 Est GFR (MDRD) Non-Af 70 BUN/Creatinine Ratio 22.2 H Glucose 110 H Lactic Acid 1.6 Calcium 9.3 Troponin I High Sens 6 Urine Color Yellow Urine Clarity Sl Cloudy Urine pH 6.0 Ur Specific [place] 1.015 Urine Protein 30 H Urine Glucose (UA) Normal Urine Ketones 50 H Urine Occult Blood 250 H Urine Nitrite Negative Urine Bilirubin Negative Urine Urobilinogen Normal Ur Leukocyte Esterase 500 H Urine RBC 25-50 SEEN Urine WBC 25-50 SEEN Ur Squamous Epith Cells 0-5 SEEN Ur Transition Epith Cell 0-5 SEEN Urine Bacteria 0 SEEN Urine Mucus 0 SEEN Radiography Diagnostic Testing: Clinical Impression(s) from Imaging Studies Chest X-Ray 09/24/23 20:10 IMPRESSION: No radiographic evidence of acute cardiopulmonary disease. Electronically Signed: Armando Thorpe MD at 20:39 EST , Abdomen/Pelvis CT 09/24/23 23:44 IMPRESSION: Nonspecific small bowel changes which may indicate enteritis in the appropriate clinical setting. Electronically Signed: Armando Thorpe MD at 0:40 EST , Management Discussion w/another healthcare provider: Hospitalist Discharge Plan Dx/Rx/DC Orders Clinical Impression: Near syncope, Acute UTI, Vomiting, Acute febrile illness Disposition Disposition: Acute Care Hospital [facility] What to do if you have Problems For any increased pain, shortness of breath, bleeding, nausea or vomiting, chestpain, or any unexpected problems, contact your Primary Care Provider. Call [facility] ([phone]) or report to the closest Emergency Room. Call 911 if necessary. 09/24/232058 <Electronically signed by Valeria FERGUSON> Cosigner Signature (if applicable): 09/25/2347 <Electronically signed by Aly Li DO> CC: Dr. Francisco Bahena MD ~ Signed [facility] Work Phone: [phone]) 919-434512-16-2023 Discharge summary Author Geovani Dave [facility] September 11, 2023 12:03am Note Date/Time September 10, 2023 8:34pm [facility] Medical Records Department [address] [place] [id number] Emergency Department Summary 09/10/23 MR#: [id number] Acct: [id number] Name: JAVIER BOND Rep #:[id number] : 1940 82 From: Geovani Dave DO PCP: Dr. Francisco Bahena MD Status:REG ER Location: ED HPI HPI - GI History of Present Illness Chief Complaint: Abd Pain Narrative Narrative: 82-year-old male presenting with abdominal pain. He states his left lower quadrant. [facility] Medical History Abdominal pain Arthritis BPH (benign prostatic hyperplasia) Groin pain History of back problems History of hiatal hernia History of kidney stones Hypertension Inguinal hernia bilateral, non-recurrent Left inguinal hernia Right inguinal hernia Home Medications acetaminophen 500 mg tablet 500 mg PO PRN PRN Pain 04/03/17 [History Last Taken Unknown] finasteride 5 mg tablet 5 mg PO DAILY 04/03/17 [History Last Taken Unknown] hydrochlorothiazide 12.5 mg capsule 12.5 mg PO DAILY 04/03/17 [History Last Taken 07/18/19 05:30 12.5 MG] tamsulosin 0.4 mg capsule 0.4 mg PO DAILY 04/03/17 [History Last Taken Unknown] doxycycline hyclate 20 mg tablet 20 mg PO BID 03/13/19 [History Last Taken Unknown] metronidazole 0.75 % topical cream 1 applic topical BID 07/16/19 [History Last Taken Unknown] Lactobacillus acidophilus 10 mg PO DAILY 01/28/21 [History Last Taken Unknown] aspirin 81 mg tablet,delayed release (Rika Low Dose Aspirin) 81 mg PO DAILY 01/28/21 [History Last Taken Unknown] calcium carb-vitamin D3 ER 600 mg (1,500 mg)-500 unit tablet,ER 24 hr 1 tab PO LUNCH 01/28/21 [History Last Taken Unknown] melatonin 3 mg tablet 5 mg PO QHS 01/28/21 [History Last Taken Unknown] trazodone 50 mg tablet 50 mg PO QHS 01/28/21 [History Last Taken Unknown] multivitamin 1 tab PO DAILY 05/18/21 [History Last Taken Unknown] atorvastatin 10 mg tablet 1 tab PO QHS 05/03/22 [History Last Taken Unknown] docusate sodium 250 mg capsule 250 mg PO BID 05/03/22 [History Last Taken Unknown] furosemide 40 mg tablet (Lasix) 20 mg PO PRN PRN Edema 05/03/22 [History Last Taken Unknown] pantoprazole 40 mg tablet,delayed release 40 mg PO DAILY 05/03/22 [History Last Taken Unknown] quinapril 5 mg tablet (Accupril) 5 mg PO DAILY 05/03/22 [History Last Taken Unknown] nitrofurantoin monohydrate/macrocrystals 100 mg capsule (Macrobid) 100 mg PO Q12H 5 days #10 caps 01/02/23 [Rx Last Taken Unknown] polyethylene glycol 3350 17 gram/dose oral powder (Miralax) 17 g PO DAILY #119 grams 01/02/23 [Rx Last Taken Unknown] Allergy/AdvReac Type Severity Reaction Status Date / Time Iodinated Contrast Media Allergy Hives Verified 09/10/23 18:57 [CONTRASTS] azelaic acid [From Finacea] AdvReac Rash Verified 09/10/23 18:57 levofloxacin AdvReac Rash Verified 09/10/23 18:57 meloxicam [From Mobic] AdvReac Nausea Verified 09/10/23 18:57 misoprostol [From Cytotec] AdvReac Nausea Verified 09/10/23 18:57 nabumetone [From Relafen] AdvReac Nausea Verified 09/10/23 18:57 NSAIDS (Non-Steroidal AdvReac Nausea Verified 09/10/23 18:57 Anti-Inflamma sulfamethoxazole AdvReac Nausea Verified 09/10/23 18:57 [From Bactrim] terbinafine AdvReac Nausea Verified 09/10/23 18:57 trimethoprim [From Bactrim] AdvReac Nausea Verified 09/10/23 18:57 valdecoxib [From Bextra] AdvReac Other Verified 09/10/23 18:57 Family History Father Colon cancer Mother Cancer lung Hypertension Brother Cancer Surgical History history exacorporeal shock wave lithrotripsy history lap hiatal hernia repair History of bilateral cataract extraction History of colonoscopy (~02/2019) History of hemorrhoidectomy History of laparoscopic cholecystectomy History of left inguinal hernia repair (~07/18/19) History of right inguinal hernia repair history repair left thumb history ureteral stent insertion Hx of repair of left rotator cuff Hx of repair of right rotator cuff Social History household members: spouse Smoking Status: Never smoker alcohol intake: current alcohol intake frequency: a few times a month substance use type: does not use EXAM Physical Exam Const Vital Signs: 09/10/23 18:50 09/10/23 23:51 Temperature 98.8 F Temperature Source Temporal Pulse Rate 93 69 Respiratory Rate 15 15 Blood Pressure 137/73 H 133/63 H Blood Pressure Mean 94 86 Pulse Ox 100 97 Oxygen Delivery Method Room Air Room Air MDM MDM MDM Narrative Medical decision making narrative: Patient presenting with left lower quadrant abdominal pain. This has been an ongoing thing. He had some constipation which is chronic. He also history of UTI and kidney stones. He is also had a septic stone. Patient presenting with right flank pain. Differential includes colitis, diverticulitis, gastritis, pancreatitis, constipation, UTI, pyelonephritis, renal calculi, ureteral calculi, bowel obstruction, malignancy, dehydration, electrolyte abnormalities. CBC was obtained to assess white blood cell count, hemoglobin, platelets. CMP to assess liver function, renal function, electrolytes. Lipase to assess for pancreatitis. Urinalysis to assess for UTI. CBC shows no leukocytosis with a white blood cell count of 4.7. Hemoglobin 12.5. Platelets are 151. Creatinine1.05. Electrolytes were unremarkable. LFTs are normal. Lipase within normal limits. Urinalysis consistent with UTI. Exam is not consistent with pyelonephritis. Patient does have history of kidney stones and septic stone so we did obtain a CT of the abdomen pelvis without contrast which shows no obstructing stones. This does show some constipation as well as old T11-T12 compression deformities. Discussed findings with patient and his . He was given Rocephin here in the ED. He will be given a prescription for Keflex and they want it sent to their pharmacy. Patient counseled that he should take stool softeners and laxatives at home as well. He will follow-up with urology and his PCP. Impression: 1. UTI 2. Abdominal pain 3. Constipation Lab Data Attestation: I reviewed the patient's lab results. Labs: Laboratory Results - last 24 hr 09/10/23 09/10/23 20:05 22:17 WBC 4.7 RBC 3.97 L Hgb 12.5 L Hct 38.2 L MCV 96.2 H MCH 31.5 MCHC 32.7 RDW Std Deviation 46.5 H RDW Coeff of Ezequiel 13.0 Plt Count 151 MPV 9.2 Immature Gran % (Auto) 0.000 Neut % (Auto) 53.4 Lymph % (Auto) 36.0 [place] % (Auto) 8.5 Eos % (Auto) 1.5 Baso % (Auto) 0.6 Absolute Neuts (auto) 2.5 Absolute Lymphs (auto) 1.70 Nucleated RBC % 0 Sodium 139 Potassium 4.2 Chloride 106 Carbon Dioxide 30.0 Anion Gap 3 L BUN 30 H Creatinine 1.05 Est GFR (MDRD) Af Amer 87 Est GFR (MDRD) Non-Af 72 BUN/Creatinine Ratio 28.6 H Glucose 108 H Calcium 9.4 Total Bilirubin 0.50 AST 10 L ALT 20 Alkaline Phosphatase 59 Total Protein 6.8 Albumin 3.9 Globulin 2.9 Albumin/Globulin Ratio 1.3 Lipase 17 Urine Color Yellow Urine Clarity Sl. Cloudy Urine pH 6.0 Ur Specific [place] 1.020 Urine Protein 15 H Urine Glucose (UA) Normal Urine Ketones 5 H Urine Occult Blood 10 H Urine Nitrite Positive H Urine Bilirubin Negative Urine Urobilinogen Normal Ur Leukocyte Esterase 500 H Urine RBC 0-5 SEEN Urine WBC 25-50 SEEN Ur Squamous Epith Cells 0-5 SEEN Urine Bacteria 2+ Urine Mucus 0 SEEN Radiography Diagnostic Testing: Clinical Impression(s) from Imaging Studies Abdomen/Pelvis CT 09/10/23 22:45 IMPRESSION: Nonobstructing nephroliths on the left measuring up to 3 x 5 mm. Increased stool. Moderate scoliosis and posterior interbody fusion L3-S1. Mild remote compression fractures T11-T12. Electronically Signed: Ángel Chris MD at 23:45 EST , Discharge Plan Triage Chief Complaint: Abd Pain ED Provider: Geovani Dave Dx/Rx/DC Orders Prescriptions: No Action metronidazole 0.75 % cream 1 applic TOPICAL BID acetaminophen 500 MG tablet 500 mg PO PRN PRN (Reason: Pain) tamsulosin 0.4 MG capsule 0.4 mg PO DAILY Patient Comments: TAKE ONE CAPSULE BY MOUTH EVERY DAY hydrochlorothiazide 12.5 MG capsule 12.5 mg PO DAILY Patient Comments: finasteride 5 MG tablet 5 mg PO DAILY Patient Comments: TAKE 1 TABLET BY MOUTH EVERY DAY doxycycline hyclate 20 mg tablet 20 mg PO BID Patient Comments: Rx Instructions: takes at noon on Mon-Wed-Tue trazodone 50 mg tablet 50 mg PO QHS melatonin 3 mg Tablet 5 mg PO QHS aspirin [Rika Low Dose Aspirin] 81 mg Tablet,Delayed Release (Dr/Ec) 81 mg PO DAILY Lactobacillus acidophilus Capsule 10 mg PO DAILY calcium carbonate-vitamin D3 600 mg(1,500mg) -500 unit Tablet Extended [place]99 Hr 1 tab PO LUNCH multivitamin Tablet 1 tab PO DAILY atorvastatin 10 mg tablet 1 tab PO QHS Patient Comments: TAKE 1 TABLET BY MOUTH DAILY AT BEDTIME. FOR CHOLESTEROL furosemide [Lasix] 40 mg tablet 20 mg PO PRN PRN (Reason: Edema) pantoprazole 40 mg Tablet,Delayed Release (Dr/Ec) 40 mg PO DAILY quinapril [Accupril] 5 mg Tablet 5 mg PO DAILY docusate sodium 250 mg Capsule 250 mg PO BID nitrofurantoin monohyd/m-cryst [Macrobid] 100 mg capsule 100 mg PO Q12H 5 Days Qty: 10 0RF Rx Instructions: must administer with a meal/food polyethylene glycol 3350 [Miralax] 17 gram/dose powder 17 g PO DAILY Qty: 119 0RF Rx Instructions: take 1 cap twice per day until regular BMs, then once daily Primary Care Provider: Francisco Bahena Referrals: Francisco Bahena MD [Primary Care Provider] - What to do if you have Problems For any increased pain, shortness of breath, bleeding, nausea or vomiting, chestpain, or any unexpected problems, contact your Primary Care Provider. Call [facility] ([phone]) or report to the closest Emergency Room. Call 911 if necessary. 09/11/23 0003 <Electronically signed by Geovani Dave DO> Cosigner Signature (if applicable): CC: Dr. Francisco Bahena MD ~ Signed [facility] Work Phone: 1(911) 127-640312-08-2023 Miscellaneous Notes* Telephone Encounter - Jenni Enamorado LPN - 09/02/2023 9:06 AM EST Spoke with patient following up from procedure. Patient states they are doing well, no questions orconcerns at this time. Jenni Enamorado LPN documented [facility]12-[facility]23 Miscellaneous Notes* Telephone Encounter - Ronan Jean LPN - 09/01/2023 2:17 PM EST Spoke with pt and he had this nurse speak with his . verbalizes understanding of message. advises that they will just wait and see Dr Guardado. Pt is on the wait list for an earlier appointment. Ronan Jean LPN * Telephone Encounter - Francisco Bahena MD - 09/01/2023 1:55 PM EST Let patient know at this time I would prefer to get surgeries input on it. If willing to travel and wanting to stay with [facility] he can ask to see if he could get in with generalsurgery in [place] sooner then mid September. * Telephone Encounter - Ronan Jean LPN - 09/01/2023 11:27 AM EST Please see message below. Ronan Jean LPN * Telephone Encounter - Nubia Thapa - 09/01/2023 10:49 AM EST Pt called and stated that during his CAT scan he said he was allergic to the contrast and the results came back All negative. Wondering if a second CAT scan should be done? Please assist and advise. Thank you! documented in this encounterCh[facility]12-05-2023 Miscellaneous Notes* Telephone Encounter - Trinidad Roque APRN.TIME SIGNAL WIRER - 08/30/2023 1:43 PM EST Ordered. * Telephone Encounter - Dorothy Hernandez RN - 08/30/2023 8:50 AM EST Emily from [facility] calls and states that patient is allergic to contrast dye. CT Scan order needs to also not have the oral contrast. Patient has this scheduled for today. Please place new order. documented in this encounterChillic[facility]12-05-2023 Miscellaneous Notes* [facility] - Charlene Quinteros RT(R) - 08/30/2023 1:00 PM EST Radiology Service Progress Note PATIENT NAME: Javier Bond DATE OF SERVICE: August 30, 2023 TIME: 1:03 PM PATIENT IDENTITY VERIFICATION COMPLETED USING TWO (2) IDENTIFIERS: Name and Date of confirmedby patient verbally. FALL SCREENING: Has the patient had 2 falls in the last year or 1 fall with injury or currently using an Ambulatory Assistive Device (Walker, Cane, Wheelchair, Crutches, etc.)? Yes, Patient High Riskfor Falls What interventions were put in place to prevent falls during this visit? Offered Assistance with Transfers/Clothing, Instructed Patient to Remain Seated (Not on Exam Table) Until Exam, and Increased Observations by Caregivers PATIENT GENDER DATA: Male PATIENT RELEVANT IMPLANT DATA REVIEWED: Not Applicable RADIOLOGY DEPARTMENT: CT; Exam(s) Completed: Abdomen/Pelvis PERIPHERAL IV DATA: Not applicable SIGNED BY: RT Elin(R) August 30, 2023 1:03 PM documented in this encounterChillic[facility]11-30-2023 History of Present illness Narrative* Francisco Bahena MD - 08/25/2023 12:00 PM EST Chief Complaint No chief complaint on file. HPI Javier Bond is a 82 year old male who presents here today for Constant pain and swelling in left lower abdomen for several months. Pain Location? LLQ Pain scale? Runs from 3-7/10. Worse if pushes on it but not with coughing. Increased discomfort with straining with a BM. Describe pain? Stabbing like pain How long? Last few months. No know cause of onset. Any N/V/D? No. No hematochezia or melena. Patient with hx of HTN, GERD, BPH, chronic back pain, Depression, unstable gait, osteoporosis, and those as below. Past medical history, appointments, medications, allergies reviewed. 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/24/2022 S/p removal 08/2022 Essential hypertension, benign Family history of malignant neoplasm of gastrointestinal tract GERD (gastroesophageal reflux disease) 03/25/2009 Hiatal hernia 06/09/2022 History of compression fracture of spine 11/05/2019 Hypercalciuria, idiopathic 02/11/2020 Hypertrophy of prostate without urinary obstruction and other lower urinary tract symptoms (LUTS) Ilioinguinal neuralgia of left side 09/27/2019 Internal hemorrhoids without mention of complication Living will in place 10/04/2022 DPA: Peter Lumbar degenerative disc disease 09/14/2012 Lumbar radiculopathy 07/03/2020 Medicare annual wellness visit, subsequent 09/10/2021 Medicare Part B: Not able to find Last done: 09/10/2021 Nephrolithiasis 07/04/2007 Osteoporosis 01/28/2020 Other specified anemias 03/16/2022 Acute blood loss 11/2020 (post surgery) Peripheral edema 05/21/2022 Primary osteoarthritis of both first carpometacarpal joints 05/04/2018 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 09/09/2015 Rosacea 09/09/2015 S/P lumbar spinal fusion 12/15/2020 Sepsis due to Gram-negative organism with septic shock (HCC) 12/17/2020 Proteus mirabilis UTI Situational anxiety 06/27/2019 Situational depression 02/27/2021 Spondylosis of lumbar region without myelopathy or radiculopathy 03/10/2018 Thyroid nodule 12/03/[address] Zacarias Unstable gait 05/21/2021 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 05/11/2021 Previous Surgical History PAST SURGICAL HISTORY Procedure Laterality Date ARTHRP INTERPOS INTERCARPAL/METACARPAL JOINTS Left 05/24/2018 Left thumb CMC arthroplasty with LRTI and MCP pinning of left thumb COLONOSCOPY FLX DX W/COLLJ SPEC WHEN PFRMD 07/17/08, 2013 COLONOSCOPY FLX DX W/COLLJ SPEC WHEN PFRMD 03/28/2019 WC-R. Cebul CYSTO.PANENDO 02/20/2021 stent removal EGD TRANSORAL BIOPSY SINGLE/MULTIPLE 12/26/2008 ESOPHAGOGASTRODUODENOSCOPY TRANSORAL DIAGNOSTIC 03/18/2020 EGD EXCISION OF CYST squamous cell on head LAP, REVISION DEMETRIO FUNDOPLASTY 03/11/2009 hiatal hernia LAPAROSCOPY SURG CHOLECYSTECTOMY 03/11/2009 LITHOTRIPSY XTRCORP SHOCK WAVE 1982,12/07/2006, 2011 NEPHROLITHOTOMY REMOVAL STAGE 1 Right 11/28/2006, 2011 (R) ureteroscopic OPEN REPAIR OF ROTATOR CUFF ACUTE Right 12/06/2002 OPEN REPAIR OF ROTATOR CUFF ACUTE Left 08/26/2004 PAST SURGICAL HISTORY OF 08/2022 re-moval of esophageal diverticulum. PERIPHERAL NERVE BLOCK (MOD 59) Bilateral 11/01/2016, 03/28/2018 bilateral lumbar facet medial branch nerve block (l4-5, L5-S1) REMOVAL OF HEMORRHOID CLOT 06/2017 SPINAL FUSION,ANT,EA ADNL LEVEL 2001 TONSILLECTOMY HX Childhood TRANSURETHRAL ELEC-SURG PROSTATECTOM 01/14/2023 XCAPSL CTRC RMVL INSJ IO LENS PROSTH W/O ECP Bilateral 08/25/2016 Family History FAMILY HISTORY Problem Relation Age of Onset Cancer Mother lung Cancer Father colon Cancer Brother lymphoma Patient Allergies ALLERGIES Allergen Reactions Contrast Dye Hives Finacea [Azelaic Ac* Rash Bactrim [Sulfametho* Unknown Bextra [Valdecoxib] Unknown Cardura [Doxazosin * Unknown Ciprofloxacin Unknown Cytotec [Misoprosto* Unknown Fosamax [Alendronat* Vomiting heartburn, vomiting Gabapentin Mental Status Change Keflex [Cephalexin] Rash Ketoconazole Unknown Levofloxacin Other: See Comments Pseudomonas Mobic [Meloxicam] Unknown Nitrofurantoin Other: See Comments Per , "he didn't feel well" - unsure of reaction Nsaids (Non-Steroid* Unknown GI UPSET Relafen [Nabumetone] Unknown Terbinafine GI Upset Current Medications Current Outpatient Medications on File Prior to Visit Medication Sig atorvastatin (LIPITOR) 10 mg tablet Take 1 tablet by mouth daily at bedtime. For cholesterol. furosemide (LASIX) 20 mg tablet Take 1 tablet by mouth once daily. methocarbamol (ROBAXIN) 500 mg tablet Take 500 mg by mouth once daily as needed. hydroCHLOROthiazide 12.5 mg tablet Take 1 tablet by mouth once daily. lisinopril (ZESTRIL) 5 mg tablet Take 1 tablet by mouth once daily. traZODone (DESYREL) 50 mg tablet Take 0.5 tablets by mouth daily at bedtime. fexofenadine (HESHAM ALLERGY) 180 mg tablet Take one tablet one to two times a day Ascorbic Acid (VITAMIN C) 1,000 mg tablet Take 1 tablet by mouth twice daily. d-mannose powd Take by mouth once daily. triamcinolone acetonide (KENALOG) 0.1 % cream Apply 1 application to affected area as directed. Docusate Sodium 250 mg capsule Take 100 mg by mouth twice daily. pantoprazole DR (PROTONIX) 40 mg tablet Take 40 mg by mouth once daily. doxycycline 20 mg tablet Take 20 mg by mouth twice daily. multivit-min/iron/folic acid/K (ADULTS MULTIVITAMIN ORAL) Take 1 tablet by mouth once daily. MEDICAL SUPPLY KAFO for right lower extremity. acetaminophen (TYLENOL) 500 mg tablet Take 2 tablets by mouth every 8 hours as needed for Pain or Fever. aspirin 81 mg chewable tablet Take 1 tablet by mouth once daily. Current Facility-Administered Medications on File Prior to Visit Medication perflutren lipid microspheres 1.3 mL in NaCl (PF) 0.9% 10 mL injection (DEFINITY) sodium chloride 0.9 % (flush) 10 mL (BD POSIFLUSH) Social History Social History Tobacco Use Smoking status: Former Types: Cigarettes Quit date: 06/24/1963 Years since quittin.2 Smokeless tobacco: Never Tobacco comments: quit in his 20's - smoked socially while in college Vaping Use Vaping Use: Never used Substance Use Topics Alcohol use: Yes Comment: 1-2 drinks in A MONTH Drug use: No Review of Symptoms REVIEW OF SYSTEMS See HPI EXAM: BP 122/54 Pulse 68 Temp 37.1 C (98.8 F) (Right Tympanic) Resp 16 Wt 75 kg (165 lb 6.4 oz) BMI 23.07 kg/m General Appearance: Well appearing, alert, in no acute distress, well-hydrated, well nourished.. Genitalia: Normal, Penis normal. No urethral discharge. Scrotum normal to palpation. No hernia was palpated on the left but the area is tender. To palpation and made worse with palpation over where adirect inguinal hernia would be. Health Maintenance List RSV Vaccine(1 - 1-dose 60+ series) Never done Influenza Vaccine(1) due on 05/27/2023 Covid-19 Vaccine(2022- season) due on 05/27/2023 Annual PCP Team Chronic Disease Visit due on 04/05/2024 BP Controlled (<130/80) due on 04/05/2024 Diabetes Screening due on 04/05/2026 DTaP,Tdap,Td Vaccine(4 - Td or Tdap) due on 03/13/2028 Advance Directive Discussion Completed Shingrix Vaccine Completed Pneumococcal Vaccine: 65+ Completed Colorectal Cancer Screening Discontinued Data reviewed A/P ASSESSMENT/PLAN: 1. Left lower quadrant abdominal pain - ICD9: 789.04, ICD10: R10.32 Check - CT ABD/PEL WO IVCON - ENTERIC CONTRAST (RADIOLOGY PROCEDURE) May need general surgery consult for hernia repair. F/u prn Francisco Bahena MD documented in this encounterCh[facility]11-27-2023 Miscellaneous Notes* Telephone Encounter - Paulette Summers Ma - 08/22/2023 5:07 PM EST Pt scheduled with Dr. Bahena on 08/25/23 at 12 PM. Pt notified via [employer]. Paulette Summers Ma documented in this encounterChill[facility]11-20-2023 Miscellaneous Notes* Telephone Encounter - Tuan Duval - 08/15/2023 7:13 PM EST Patient phones requesting refills as follows: Requested Prescriptions Pending Prescriptions Disp Refills atorvastatin (LIPITOR) 10 mg tablet 90 tablet 1 Sig: Take 1 tablet by mouth daily at bedtime. For cholesterol. CHRISTA 04/05/23 PÉREZ NOV 10/20/23 RR Please review and advise. Tuan Duval documented in this encounterChillic[facility]11-13-2023 Miscellaneous Notes* Telephone Encounter - Francisco Bahena MD - 08/08/2023 5:15 PM EST The following approved medication requests have been transmitted electronically. Requested Prescriptions Signed Prescriptions Disp Refills furosemide (LASIX) 20 mg tablet 90 tablet 1 Sig: Take 1 tablet by mouth once daily. Authorizing Provider: FRANCISCO BAHENA MD * Telephone Encounter - Yuridia Sifuentes MA - 08/08/2023 3:30 PM EST Patient has been identified by name and date of : Yes Requested Prescriptions Pending Prescriptions Disp Refills furosemide (LASIX) 20 mg tablet 90 tablet 1 Sig: Take 1 tablet by mouth once daily. RX INSTRUCTIONS: Patient aware RX will be sent to pharmacy. No need to notify patient. Patient last office visit: 04/05/23 Patient next office visit: 10/19/23 Yuridia Sifuentes MA documented in this encounterChill[facility]10-31-2023 History of Present illness Narrative* Laurel Chavez, PT - 07/26/2023 2:53 PM EDT Episode Visit Count: 5 Therapist That Will Accept/Oversee The Plan Of Care: Laurel Chavez Start of Care Date: 06/27/23 Onset Date: (Chronic) Plan of Care Certification Date: 06/27/23 Next Certification Due Date: 08/01/23 [facility] PHYSICAL THERAPY DISCONTINUANCE OF CARE PLAN OF CARE UPDATE: Assessment: Javier Bond is discontinued from Physical Therapy services due to maximal benefit.. Patient was seen for 5 visits from Start of Care Date: 06/27/23 to 07/26/2023 and treatment included: Therapeutic exercise, Manual therapy, and Self-long-term management. Goals for Episode of Care: created on 06/27/23 through 07/25/23 Goals updated on 07/26/2023. [place] in home exercise program. -- MET Patient will decrease pain rating by 2 points to meet minimal clinical important difference for numeric pain rating scale. -- MET Patient will increase flexibility of upper trapezius to WNL to improve ability to maintain proper posture and decrease pain. -- PARTIALLY MET, still limited L UT Increase ROM of BL cervical rotation to 50 degrees for decreased pain and improved posture -- PARTIALLY MET Improve postural awareness. -- PARTIALLY MET, Pt. Self corrects Patient Goals: Reduce neck pain and improve mobility -- MET SUBJECTIVE: Neck continues to have cavitation. Neck pain has reduced significantly since procedure.The ablation is scheduled. Pt. would like to dc PT due to independent with HEP and self STM to the cervical spine.. Pain: Pain Pain Level: 0 Pain Location: Neck Description: Aching Post Treatment Pain Post Treatment Pain Level: Better Post Treatment Pain Location: Neck, Neck - Left, Neck - Right Post Treatment Pain Description: Aching PROMIS Scales Higher is Better 07/23/2023 06/24/2023 04/12/2023 Phys Func - Score 36 (moderate dysfunction) 35 (moderate dysfunction) 32 (moderate dysfunction) Phys Func - Percentile 8 % 7 % 4 % Self-Eff Symptom - Score 39 (Low) 41 (Average) 41 (Average) Self-Eff Symptom - Percentile 14 % 18 % 18 % T-scores: mean of general population = 50. 5 points is clinically meaningfully difference Percentiles provide an indication of how the patient's score ranks in relation to the general population. Higher percentile rankings indicate better function/quality of life. 50th percentile is the average of the general population and indicates half of respondents had a worse score. OBJECTIVE MEASURES WITH LEVEL OF FUNCTION: Cervical Spine ROM Cervical Protrusion AROM: Normal Cervical Retraction AROM: Moderate limitation Cervical Flexion AROM: Normal Cervical Extension AROM: Minimal limitation Cervical Side-Bend Right AROM: Major limitation (without pain) Cervical Side-Bend Left AROM: Moderate limitation Cervical Rotation Right AROM: Moderate limitation Cervical Rotation Left AROM: Moderate limitation TREATMENT: Therapeutic Exercise: 1: cervical reatraction, protraction, SB each direction, rotation each direction, extension, flexion 1x each 2: seated chin tucks 2x10 3: seated UT stretch 3x30 sec each side 4: seated B scapular retraction 2x10 5: seated cervical retraction 1x10 following STM Skilled Intervention: Patient was educated in proper exercise technique and purpose for exercises. Reviewed and educated patient on additions/changes for home exercise program as above (*). Skilled judgment was used in selection of appropriate interventions. Correct performance of therapeutic exercises was facilitated with verbal, visual, and tactile cuing. Additional time necessary for assessing progress toward goals due to PN and DC today. Educated patient on rationale for performing exercises in regards to decreasing fatigue , increase ease of ADL, and ROM and function . Patient education as noted. Manual Therapy: 1: manual STM to B UT. STM to R supraspinatus, B SCM and B paraspinals Skilled Intervention: Manual skills to improve joint mobility, ROM, and decrease pain. Utilized anatomy knowledge of the therapist, and assessment of patient's response to intervention. Billing Therapeutic Exercise Treatment Minutes: 20 Manual TherapyTreatment Minutes: 10 Total Session Time (minutes): 30 Session Start Time : 1450 Session Stop Time : 1520 Laurel Chavez PT documented [facility] this [facility]23 Miscellaneous Notes* Telephone Encounter - Yolette Messina - 07/20/2023 1:21 PM EDT Patient was called and message left for patient to call back and schedule his RFA'S Yolette Messina documented in this [facility]10-24-2023 Instructions* Patient Instructions* Ludivina Nunez APRN.TIME SIGNAL WIRER - 07/19/2023 10:24 AM EDT Ice and heat as tolerated Activity as tolerated [facility] What is it? Facet joint and sacroiliac joint denervation (also called rhizotomy, ablation, neurotomy or neurolysis) uses radiofrequency energy to temporarily interrupt or destroy the nerve that carries pain signals from the facet (zygapophyseal) joint or sacroiliac joint. The nerve branches from the facet joints are called the medial branches and the nerve branches from the sacroiliac joints are called the lateral branches. Each facet joint receives input from the two medial branches and each sacroiliac joint receives input from four lateral branches. Prior to performing a radiofrequency procedure, an injection of short-acting anesthetic (numbing medication) is injected to achieve short-term pain relief. If significant short-term pain relief is seen with the anesthetic, then a patient may be a candidate for the radiofrequency denervation procedure. Who should get radiofrequency denervation? The procedures are typically ordered for patients who have gotten significant short-term pain relief from facet joint medial branch injections and sacroiliac joint injections but have failed to get long-term improvement from these injections. How long does the injection take? Typically the radiofrequency ablation takes about one hour to perform, but expect to spend 15-20 minutes at our facility due to preparation time before the procedure and evaluation after the procedure. What are the risks of radiofrequency ablation? With all injections there is a risk of infection, bleeding, temporary increase in pain and injury to the structures along the course of the needle or injury to other nerve branches by the radiofrequency probe. By using sterile equipment and technique we minimize the Risk of infection. The risk of bleeding is minimized by discontinuation of blood thinners (this typically requires approval from theprescribing doctor) and non-steroidal anti-inflammatory medications (except Celebrex). By using X-ray guidance (fluoroscopy) we minimize the risk of injury to the structure along the course of the needle. The sensory and motor stimulation reduce the risk of injury to other nerves. Who should NOT have this injection? If you have an active infection, poorly controlled hypertension, diabetes, congestive heart failureor are unable to stop taking blood thinners, you may not be a candidate for these types of injections. documented in this [facility]Ch[facility]10[facility] History of Present illness Narrative* Ludivina Nunez APRN.CNP - 07/19/2023 10:15 AM EDT AMBULATORY TELEPHONE VISIT Javier Shelly Bond has consented to this telephone encounter. Persons Present: patient Chief Complaint/Reason: BILATERAL MBB at C5-6 and C6-7 #2 Pain level today: Ht 180.3 cm (5' 11") Wt 75.8 kg (167 lb) BMI 23.29 kg/m HPI: Patient reports 80% relief from procedure with pain score of 0/10 for 4 hours length of time. Patient reports improved quality of life and increase in ability to perform ADL's. He is pleased with the results and wishes to proceed to the RFA. He reports increased ROM cervical spine. REVIEW OF SYSTEMS GENERAL: No weight loss, malaise or fevers HEENT: Negative for frequent or significant headaches, No changes in hearing or vision, no nose bleeds or other nasal problems NECK: Negative for lumps, goiter, pain and significant neck swelling RESPIRATORY: Negative for cough, hemoptysis, wheezing, COPD, dyspnea or shortness of breath CARDIOVASCULAR: Negative for chest pain, leg swelling, hypertension, CHF or palpitations GI: No nausea, vomiting, or diarrhea : No history of dysuria, frequency or incontinence MUSCULOSKELETAL: Negative for joint pain or swelling, back pain or muscle pain SKIN: Negative for lesions, rash, and itching PSYCH: Negative for sleep disturbance, mood disorder and recent psychosocial stressors HEMATOLOGY/LYMPHOLOGY: Negative for prolonged bleeding, bruising easily or swollen nodes ENDOCRINE: Negative for cold or heat intolerance, polyuria, polydipsia and goiter NEURO: No history of headaches, syncope, paralysis, seizures or tremors Data Reviewed: Most recent procedure Assessment: (M47.812) Cervical spondylosis without myelopathy (primary encounter diagnosis) Plan: BILATERAL RFA C5-6 and C6-7 schedule left side then right side separately Total Time Spent: 15 minutes Patient verbalizes understanding of home going instructions and is in agreement with the discharge plan. Patient questions were answered to their satisfaction. Some elements may be copied from a previous office note and have been reviewed/updated where appropriate. All portions reflect current medical decision making from today Ludivina Nunez APRN.TIME SIGNAL WIRER MRI Spine Report MRI LUMBAR SPINE WO IVCON Exam End: 10/03/2020 1:53 PM (Final result) Narrative: * * *Final Report* * * DATE OF EXAM: Oct 03 2020 1:40PM [facility] 0303 - MRI LUMBAR SPINE WO IVCON / PROCEDURE REASON: Spinal stenosis of lumbar region with neurogenic claudication * * * * Physician Interpretation * * * * EXAMINATION: MRI LUMBAR SPINE WO IVCON CLINICAL HISTORY: Lumbar stenosis, low back pain TECHNIQUE: Routine lumbosacral spine MR protocol without gadolinium. MQ: [id number] COMPARISON: MR lumbar spine 01/19/2017 RESULT: Counting reference: Lumbosacral junction. For the purposes of this report, L4-5 is considered the level of the left iliac crest and L3-L4 is considered the level of the right iliac crest due to scoliosis and assume there are 5 lumbar-type vertebrae. Anatomic variant: None. Localizer images: Multiple perineural cysts noted in the thoracic spine science tutor images, incompletely evaluated, also seen on the prior MRI. Alignment: Again seen is severe dextrocurvature centered at L2. Stepwise grade 1 degenerative retrolisthesis of T12 on L1, L1-L2, L2-L3, L3-L4, and L4-5. Bone marrow signal/fracture: Type I degenerative change at L1-L2, L2-L3, L3-L4, and L4-L5. No evidence of pathologic marrow infiltration. No evidence of prior fracture. Conus: The conus is within normal limits of signal intensity and morphology. Sacral perineural cysts are incidentally noted, with the largest at the left S2 level measuring up to 1.9 cm. Paraspinal soft tissues: Paraspinal soft tissues are within normal limits. T11-T12: Canal foramina are patent. Disc degeneration with mild diffuse disc bulge noted. T12-L1: Canal and foramina are patent. Disc degeneration with mild diffuse disc bulge noted. L1-L2: There is disc degeneration with diffuse disc bulge and facet arthropathy causing mild left foraminal stenosis and mild canal narrowing eccentric to the left. L2-L3: There is disc degeneration with diffuse disc bulge and facet arthropathy causing mild canal narrowing eccentric to the left, and mild bilateral foraminal stenosis. L3-L4: There is disc degeneration with diffuse disc bulge and facet arthropathy causing mild to moderate canal narrowing eccentric to the right, and moderate to severe right foraminal stenosis. L4-L5: There is disc degeneration with diffuse disc bulge and facet arthropathy causing moderate right foraminal stenosis without significant canal narrowing. L5-S1: There is disc degeneration with diffuse disc bulge and facet arthropathy causing mild bilateral foraminal stenosis without significant canal narrowing. Sacrum and iliac wings: The visualized sacrum and iliac wings are within normal limits. Impression: IMPRESSION: Lumbar spondylosis as described mostly due to severe dextrocurvature, similar to the prior examination, worst at L3-L4 with mild to moderate canal narrowing eccentric to the right. Counting reference: Lumbosacral junction. For the purposes of this report, L4-5 is considered the level of the left iliac crest and L3-L4 is considered the level of the right iliac crest due to scoliosis and assume there are 5 lumbar-type vertebrae. Anatomic variant: None. If surgery is to be indicated, correlation for level with plain radiograph recommended. 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: BRIAN Transcribe Date/Time: Oct 03 2020 2:11P Dictated by : JOHNNIE SAINZ MD This examination was interpreted and the report reviewed and electronically signed by: JOHNNIE SAINZ MD on Oct 03 2020 2:16PM EST PDMP website checked and validated. All prescriptions have been APPROPRIATELY filled. No suspiciousactivity was identified. 07/18/2023 by Ludivina Nunez APRN.TIME SIGNAL WIRER documented in this [facility]10-[facility]23 Miscellaneous Notes* Telephone Encounter - Jenni Enamorado LPN - 07/15/2023 1:53 PM EDT Spoke with patient following up from procedure. Patient states they are doing well, no questions orconcerns at this time. Jenni Enamorado LPN documented in this [facility]Ch[facility]10-18-[facility]23 Nurse Note* Gracy Hernandez LPN - 07/13/2023 10:03 AM EDT Order has been placed in the patient's chart with the following parameters for discharge from the physician: Patient is alert and oriented Vitals: Diastolic/Systolic +/- 20mmHg Respirations: 12-18 Pulse: 60-100 SpO2 is greater than or equal to 90% Patient has no nausea or vomiting Patient has no dizziness Pain level is +/- 2 from initial evaluation Dressing, dry and intact with no evidence of bleeding Criteria has been met, patient is okay to be discharged per the physician. Physician has gone in and evaluated the patient. Dressing dry and intact. No drainage noted. The patient denies nausea, numbness, tingling, weakness, shortness of breath, dizziness, or headache. Pain level 1/10. Vital signs within normal limits. Patient denied needing walked out by clinical staff and denied needing a wheelchair. Patient given discharge instructions and sent to transportation via ambulatory method. Patient left in good condition. * Jenni Enamorado LPN - 07/13/2023 9:13 AM EDT Procedure to be performed: C5/6 -C6/7 Bilateral Medial Branch Block without steroid Patient was wheeled on stretcher from pre op bay to procedure room and assisted onto the procedure tablePatient s procedure was performed in an [facility] Procedure room. Pause completed at each level by provider to verify correct level and laterality placement Pressure was applied to patient s injection site(s) and bleeding was minimal. Patient had no complaint of shortness of breath, dizziness, headache, numbness, tingling, weakness or complications from procedure. Patient was assisted from the procedure table onto the stretcher and wheeled into a post op bay. Patient was advised a clinician will be to obtain another set of vitals. Time Out: 941 Confirmed patient name, date of , procedure site, laterality, and allergies Procedure Start: 944 Procedure End: 957 * Mariel Agee LPN - 07/13/2023 9:12 AM EDT Bonding Machine Tender's Name: PETER Are you on a blood thinner: NO If yes, is a hold required: NO Last dose of blood thinner: NO INR Result today: NO Do you require a Lovenox bridge:NO Are you a diabetic:NO Are you/or could you be : NO Are you taking Xanax for the procedure: NO Are you currently on a steroid? NO Are you currently on an antibiotic: NO Have you had a COVID-19 vaccine in the last 14 days Or are you scheduled to receive one? NO documented in this [facility]Ch[facility]10-[facility]23 History of Present illness Narrative* Rigoberto Church MD - 07/13/2023 9:36 AM EDT [facility] Date: 07/13/2023 Patient name: Javier Bond Physician performing procedure: Rigoberto Church M.D., M.B.A. Diagnosis: (M47.812) Cervical spondylosis without myelopathy (primary encounter diagnosis) Procedure: Medial Branch Block (Diagnostic only, NO STEROIDS) under fluoroscopic guidance BILATERAL SIDES at C5-6 and C6-7 Injectate: A total of 4 ml volume was injected The injectate consisted of: 4 ml of 0.5% Bupivacaine, . Each site received equal volumes of this injectate. Comments: Allergy Due to the patient's reported history of allergy to IV contrast, no contrast was adminitered Improvement after today's procedure: as per nursing report HPI: Javier Bond is an 82 year old MALE who presents today, in pain, for the procedure noted above. Review of Systems: Pertinent Positives: MSK: pain in the region being treated Neuro: no weakness or numbness in the region being treated Skin: Negative (No itching) Eyes: Negative (No blurred or double vision) Respiratory: Negative (No Cough, [id number]-saysoh, Dyspnea on exertion, wheezing) Cardiovascular: Negative (No Chest Pain, Tightness, Pressure, Palpitations) Gastrointestinal: Negative (No Abdominal pain, Nausea, Vomiting, Constipation, Diarrhea) Genitourinary: Negative (No dysuria) Hematologic: Negative (No bleeding, bruising) OB: is Denied or Not Applicable Endocrine: Negative (No hot/cold intolerance) Psychiatric: Negative (No depression, anxiety or suicidal ideation) PAST MEDICAL HISTORY Diagnosis Date Abnormal SPEP 12/14/2022 Advance directive discussed with patient 10/04/2022 Discussed 09/2022 Benign intracranial hypertension 11/30/2002 Bilateral carotid artery stenosis 12/03/2020 08/2020: Rt 20-40%, Lt 0-20% 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 Chronic constipation 12/03/2020 Compression fracture of third lumbar vertebra (HCC) 11/05/2019 Degenerative lumbar spinal stenosis 12/15/2020 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/24/2022 S/p removal 08/2022 Essential hypertension, benign Family history of malignant neoplasm of gastrointestinal tract GERD (gastroesophageal reflux disease) 03/25/2009 Hiatal hernia 06/09/2022 History of compression fracture of spine 11/05/2019 Hypercalciuria, idiopathic 02/11/2020 Hypertrophy of prostate without urinary obstruction and other lower urinary tract symptoms (LUTS) Ilioinguinal neuralgia of left side 09/27/2019 Internal hemorrhoids without mention of complication Living will in place 10/04/2022 DPA: Peter Lumbar degenerative disc disease 09/14/2012 Lumbar radiculopathy 07/03/2020 Medicare annual wellness visit, subsequent 09/10/2021 Medicare Part B: Not able to find Last done: 09/10/2021 Nephrolithiasis 07/04/2007 Osteoporosis 01/28/2020 Other specified anemias 03/16/2022 Acute blood loss 11/2020 (post surgery) Peripheral edema 05/21/2022 Primary osteoarthritis of both first carpometacarpal joints 05/04/2018 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 09/09/2015 Rosacea 09/09/2015 S/P lumbar spinal fusion 12/15/2020 Sepsis due to Gram-negative organism with septic shock (HCC) 12/17/2020 Proteus mirabilis UTI Situational anxiety 06/27/2019 Situational depression 02/27/2021 Spondylosis of lumbar region without myelopathy or radiculopathy 03/10/2018 Thyroid nodule 12/03/[address] Zacarias Unstable gait 05/21/2021 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 05/11/2021 PAST SURGICAL HISTORY Procedure Laterality Date ARTHRP INTERPOS INTERCARPAL/METACARPAL JOINTS Left 05/24/2018 Left thumb CMC arthroplasty with LRTI and MCP pinning of left thumb COLONOSCOPY FLX DX W/COLLJ SPEC WHEN PFRMD 07/17/08, 2012 COLONOSCOPY FLX DX W/COLLJ SPEC WHEN PFRMD 03/28/2019 MICHAEL Alvarado CYSTO.PANENDO 02/20/2021 stent removal EGD TRANSORAL BIOPSY SINGLE/MULTIPLE 12/26/2008 ESOPHAGOGASTRODUODENOSCOPY TRANSORAL DIAGNOSTIC 03/18/2020 EGD 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 PERIPHERAL NERVE BLOCK (MOD 59) Bilateral 11/01/2016, 03/28/2018 bilateral lumbar facet medial branch nerve block (l4-5, L5-S1) REMOVAL OF HEMORRHOID CLOT 06/2017 SPINAL FUSION,ANT,EA ADNL LEVEL 2000 TONSILLECTOMY HX Childhood TRANSURETHRAL ELEC-SURG PROSTATECTOM 01/14/2023 XCAPSL CTRC RMVL INSJ IO LENS PROSTH W/O ECP Bilateral 08/25/2016 FAMILY HISTORY Problem Relation Age of Onset Cancer Mother lung Cancer Father colon Cancer Brother lymphoma Social History Tobacco Use Smoking status: Former Types: Cigarettes Quit date: 06/24/1963 Years since quittin.0 Smokeless tobacco: Never Tobacco comments: quit in his 20's - smoked socially while in college Vaping Use Vaping Use: Never used Substance Use Topics Alcohol use: Yes Comment: 1-2 drinks in A MONTH Drug use: No Current Outpatient Medications on File Prior to Visit Medication Sig methocarbamol (ROBAXIN) 500 mg tablet Take 500 mg by mouth once daily as needed. hydroCHLOROthiazide 12.5 mg tablet Take 1 tablet by mouth once daily. lisinopril (ZESTRIL) 5 mg tablet Take 1 tablet by mouth once daily. traZODone (DESYREL) 50 mg tablet Take 0.5 tablets by mouth daily at bedtime. atorvastatin (LIPITOR) 10 mg tablet Take 1 tablet by mouth daily at bedtime. For cholesterol. fexofenadine (HESHAM ALLERGY) 180 mg tablet Take one tablet one to two times a day Ascorbic Acid (VITAMIN C) 1,000 mg tablet Take 1 tablet by mouth twice daily. d-mannose powd Take by mouth once daily. furosemide (LASIX) 20 mg tablet Take 1 tablet by mouth once daily. triamcinolone acetonide (KENALOG) 0.1 % cream Apply 1 application to affected area as directed. Docusate Sodium 250 mg capsule Take 100 mg by mouth twice daily. pantoprazole DR (PROTONIX) 40 mg tablet Take 40 mg by mouth once daily. doxycycline 20 mg tablet Take 20 mg by mouth twice daily. multivit-min/iron/folic acid/K (ADULTS MULTIVITAMIN ORAL) Take 1 tablet by mouth once daily. MEDICAL SUPPLY KAFO for right lower extremity. acetaminophen (TYLENOL) 500 mg tablet Take 2 tablets by mouth every 8 hours as needed for Pain or Fever. aspirin 81 mg chewable tablet Take 1 tablet by mouth once daily. Current Facility-Administered Medications on File Prior to Visit Medication perflutren lipid microspheres 1.3 mL in NaCl (PF) 0.9% 10 mL injection (DEFINITY) sodium chloride 0.9 % (flush) 10 mL (BD POSIFLUSH) Objective Exam: Vitals: As per nursing documentation Constitutional: Normal Appearance, Oriented to Time, Place and Person Head: No lacerations, no external signs of trauma Eyes: Conjunctiva clear. No discharge from the eyes Cardiovascular: Appears well-perfused Pulmonary: Non-labored respirations Abdominal: Non-distended Skin: No visible rashes or ecchymosis Psychiatric: Mood appropriate for given condition Neurological: Gross movements are limited by pain, but otherwise unremarkable Data Reviewed: Nursing note and vitals reviewed. Additional imaging reviewed as appropriate Assessment and Plan: As noted above [place] protocol documentation / Pre-Procedure Checklist: Consent: Obtained in writing prior to procedure I had a nice discussion with the patient today about their current pain and the pathology that could be causing it We discussed different treatment options, including risks, benefits and alternatives. We agreed to proceed as previously discussed, or the plan was modified in accordance with the comments noted above Unless stated otherwise in the procedure note, the risks include but are not limited to infection, allergic reaction, increased pain, lack of therapeutic benefit, steroid reaction, nerve damage, paralysis, stroke, epidural hematoma, syncope, headache, respiratory or cardiac arrest, pneumothorax, and scar formation Once the plan was agreed upon, the patient gave written consent to proceed and was transported intothe procedure room Surgical/Procedure pause or Time Out : Time Out was led by the physician in the procedure room, with the patient and all staff present andparticipating The following information was verified during the Time Out process: Patient name, patient date of , procedure site (marked), laterality, anticoagulants and allergies Procedure: The patient was prepped and draped in a sterile fashion in the prone position after informed consent was signed and all patient questions were answered including the risks, benefits, alternative treatment options, and prognosis. The risks are as mentioned above. To block the facet joint nerves from C5 through C7, the lateral masses of these respective levels were localized under fluoroscopic visualization. A spinal needle was inserted down to the "waist" at the above-mentioned cervical levels. Using biplanar imaging, the needle was then "walked off" until it rested just lateral to the trough of the lateral mass of the medial branch nerve lies, which innervates the cervical facet joint. After contact with periosteum and negative aspirate for blood and CSF, correct placement of each needle without intravascular or epidural spread was confirmed by injecting 0.2cc of Omnipaque 300. A spot radiograph was obtained of this image. Next, a 0.5cc volume of the injectate noted above was then injected. Please see the nursing note for exact times (time out, procedure start, procedure end). After careful removal of the needle, there was minimal bleeding. The injection site was covered with appropriate sterile dressing. The patient was noted to have tolerated the procedure well and was discharged after an appropriate period of post-procedure observation. The patient was instructed to contact us if there were any complications. The patient was advised to follow-up with the requesting physician within one to two weeks or as per their requested follow-up plan. Post procedure visit summary with written instructions was offered to the patient. Rigoberto Church MD [facility] * Mariel Agee LPN - 07/13/2023 9:19 AM EDT Review of Systems Constitutional: Negative for activity change, chills, fever and unexpected weight change. Genitourinary: Negative for difficulty urinating. Musculoskeletal: Positive for gait problem, myalgias, neck pain and neck stiffness. Negative for back pain and joint swelling. Neurological: Negative for weakness, numbness and headaches. Psychiatric/Behavioral: Negative for dysphoric mood, sleep disturbance and suicidal ideas. The patient is not nervous/anxious. documented in this [facility]10-18-[facility]23 Instructions* Patient Instructions* Gracy Hernandez LPN - 07/13/2023 9:04 AM EDT PROCEDURE DISCHARGE INSTRUCTIONS 07/13/2023 Javier Meza Ronda 1940 Physician: Rigoberto Church MD Procedure: Facet Joint Injection/Medial Branch Block Post Procedure Instructions: If sedation not given, no driving for 3 hours after the procedure., Perform activities that typically make you have pain and monitor your pain level during these activities for the next 3-4 hours., Apply cold compresses to injection site if needed., If medically acceptable, take over the counter anti- inflammatories such as ibuprofen or Aleve if needed for post procedure discomfort., No hot baths,hot tubs or hot compresses for 24 hours., and Increased pain the day after the procedure may occur. If you have any of the following signs or symptoms, please call our office at Fever and/or chills Swelling and/or drainage from injection site New pain that is different than your normal pain (other than soreness at the site of the procedure) Stiff neck Shortness of breath Severe increase in pain Motor dysfunctions, such as difficulty walking, bowel or bladder dysfunction and/or incontinence Headache that is severe, light sensitive or develops when changing positions (positional headache) Nausea and/or vomiting accompanied by headache that started 24-48 hours after the procedure If you have any emergent concerns, please call 911 or go to your local emergency room. Please also contact our office to let us know you will be seeking emergency care and why. documented in this encounter[facility]10-16-[facility]23 History of Present illness Narrative* Laurel Chavez, PT - 07/11/2023 3:33 PM EDT Episode Visit Count: 3 Therapist That Will Accept/Oversee The Plan Of Care: Laurel Chavez Start of Care Date: 06/27/23 Onset Date: (Chronic) Plan of Care Certification Date: 06/27/23 Next Certification Due Date: 08/01/23 Patient Identified by Name and Date of : Yes REHABILITATION AND SPORTS THERAPY PHYSICAL THERAPY TREATMENT NOTE ASSESSMENT: Javier Meza Ronda tolerated the session with fatigue and expected muscle soreness. He demonstrated difficulty with technique with chin tucks. The patient will continue to benefit from ongoing skilled physical therapy to progress toward set goals. PLAN FOR NEXT VISIT: Continue scapular strengthening and manual therapy SUBJECTIVE: Pt reports that the exercsies have been helping and his neck is getting better. Pt reports that he is not having the crunching and cracking like he was with moving his head. Pain: Pain Pain Level: 0 Pain Location: Neck Post Treatment Pain Post Treatment Pain Level: No Change Post Treatment Pain Location: Neck OBJECTIVE MEASURES WITH LEVEL OF FUNCTION: TTP L UT versus R UT. TREATMENT: Therapeutic Exercise: 1: Seated cervical retractions 5x15 2: Chin tucks with scapular retraction 1x15 3: Chin tucks with scapular retraction with pink theraband 2x15 Skilled Intervention: Patient was educated in proper exercise technique and purpose for exercises. Skilled judgment was used in selection of appropriate interventions. Correct performance of therapeutic exercises was facilitated with verbal and visual cuing. Manual Therapy: 1: STM to UT and paraspinals for 10 min Skilled Intervention: Manual skills to improve joint mobility, ROM, and decrease pain. Utilized anatomy knowledge of the therapist, and assessment of patient's response to intervention. Billing Therapeutic Exercise Treatment Minutes: 30 Manual TherapyTreatment Minutes: 10 Skilled Treatment Time Minutes (timed and untimed codes): 40 Total Session Time (minutes): 40 Session Start Time : 1530 Session Stop Time : 1610 CECILIA Alanis PT documented in this encounterChillic[facility]10-10-2023 History of Present illness Narrative* Laurel Chavez, PT - 07/05/2023 3:00 PM EDT Episode Visit Count: 2 Therapist That Will Accept/Oversee The Plan Of Care: Laurel Chavez Start of Care Date: 06/27/23 Onset Date: (Chronic) Plan of Care Certification Date: 06/27/23 Next Certification Due Date: 08/01/23 REHABILITATION AND SPORTS THERAPY PHYSICAL THERAPY TREATMENT NOTE ASSESSMENT: Javier Bond tolerated the session with no issues. He demonstrated improvements in symptom management and cervical retraction technique. The patient will continue to benefit from ongoing skilled physical therapy to progress toward set goals. PLAN FOR NEXT VISIT: Continue scapular strengthening and manual therapy SUBJECTIVE: pt is doing very well. HEP is going well. pt is doing well after ablation Pain: Pain Pain Level: 0 Pain Location: Neck Post Treatment Pain Post Treatment Pain Level: Better Post Treatment Pain Location: Neck OBJECTIVE MEASURES WITH LEVEL OF FUNCTION: TREATMENT: Therapeutic Exercise: 1: Scapular retraction 3x15 2: Chin tucks with scapular retraction 3x15 3: Chin tucks in supine 3x15 4: Seated rows with BTB 3x12 Skilled Intervention: Patient was educated in proper exercise technique and purpose for exercises. Skilled judgment was used in selection of appropriate interventions. Correct performance of therapeutic exercises was facilitated with verbal, visual, and tactile cuing. Patient education as noted. Manual Therapy: 1: STM to UT and paraspinals for 10 min Skilled Intervention: Manual skills to improve joint mobility, ROM, and decrease pain. Utilized anatomy knowledge of the therapist, and assessment of patient's response to intervention. Billing Therapeutic Exercise Treatment Minutes: 30 Manual TherapyTreatment Minutes: 10 Skilled Treatment Time Minutes (timed and untimed codes): 40 Total Session Time (minutes): 40 Session Start Time : 1500 Session Stop Time : 1540 PABLO Vital Supervising therapist was present and guided the care of the patient for the entire session on thisdate. All documentation was reviewed and agreed upon. Laurel Chavez PT documented in this encounterChillicothe [facility]09-14-2023 History of Present illness Narrative* Faby Bruner, RT(R) - 06/09/2023 11:20 AM EDT Radiology Service Progress Note PATIENT NAME: Javier Bond DATE OF SERVICE: June 09, 2023 TIME: 11:25 AM PATIENT IDENTITY VERIFICATION COMPLETED USING TWO (2) IDENTIFIERS: Name and Date of confirmedby patient verbally. FALL SCREENING: Has the patient had 2 falls in the last year or 1 fall with injury or currently using an Ambulatory Assistive Device (Walker, Cane, Wheelchair, Crutches, etc.)? No PATIENT GENDER DATA: Male PATIENT RELEVANT IMPLANT DATA REVIEWED: Yes RADIOLOGY DEPARTMENT: General X-ray: Exam(s) Completed: Spine X-Ray(s): Cervical AP / LAT / OBL / FLEX-EXT PERIPHERAL IV DATA: Not applicable SIGNED BY: RT Mallory(R) June 09, 2023 11:25 AM documented in this encounterChillicothe [facility]09-14-2023 Miscellaneous Notes* Telephone Encounter - Altagracia Roach - 06/09/2023 11:07 AM EDT Procedure(s) being scheduled: 1.Are you diabetic No 2. Are you on any blood thinners? No If yes, does it require a hold? No If yes, was approval letter sent? No 3. Are you taking any aspirin? No 4. Are you currently taking any antibiotics? YesIf yes, is it prophylactic or for treatment of an infection? Low dose for roseca. 5. Do you have any allergies to latex? No 6. Do you have any allergies to seafood or shellfish? No 7. Do you have any allergies to x-ray dye? No 8. Did the physician instruct you to take any medication prior to your procedure? No 9. Does this procedure require a emergency medical technician/driver? Yes If yes, has patient been notified that a emergency medical technician/driver is needed and must be present at check in? Yes 10. Were the pre-procedure instructions explained and provided to the patient? Yes 11. Do you have a pacemaker? No 12. Do you have an internal stimulator of any kind? No If yes, please bring the remote with you to your procedure visit. 13. Have you received the COVID-19 Vaccine? Yes. If yes, date(s) received: 02/2023 (Patient should not receive a procedure including steroids 14 days prior to their first dose of theCOVID vaccine. They should not receive any procedure containing steroids in the time frame between their 1st and 2nd doses of the COVID vaccine. They should not receive a procedure containing steroids 14 days after their 2nd dose of the COVID vaccine.) Altagracia Roach documented in this encounterChillicothe [facility]09-14-2023 History of Present illness Narrative* Coco Esteban LPN - 06/09/2023 9:58 AM EDT Review of Systems Constitutional: Negative for activity change, chills, fever and unexpected weight change. Gastrointestinal: Negative for bowel retention or incontinence Genitourinary: Negative for difficulty urinating. Negative for bladder retention or incontinence Musculoskeletal: Positive for back pain, gait problem, neck pain and neck stiffness. Negative for arthralgias, joint swelling and myalgias. Neurological: Positive for weakness and numbness. Negative for headaches. Psychiatric/Behavioral: Positive for sleep disturbance. Negative for dysphoric mood and suicidal ideas. The patient is not nervous/anxious. * Rigoberto Church MD - 06/06/2023 11:04 AM EDT Images from the original note were not included. [facility] General Today's Date: 06/09/2023 Last Visit: N/A Name: Javier Bond : 1940 Purpose: New Patient Consultation Chief complaint: neck pain Pain Description: Timing: constant Character: aching and throbbing Primary Location: bilateral upper traps Radiation: between shoulder blades Exacerbating factors: standing and walking Relieving factors: sitting Interferes with: physical activity The patient denies difficulty with bowel or bladder control, unintentional weight loss, and fevers,chills, or night sweats. Notable Events During Course of Treatment: 06/06/2023 - Initial HPI: Referred by Cherelle Benavides PA-C, for evaluation & management of neck pain Duration: 2 years Sudden onset? no, Trauma? No Gradually worsened Prior Treatments: Medications (See below), Modalities (eg. Heat, Ice), Home Exercise Program , and Activity Modification He has had low back pain for many years, saw Dr. Schrader, had Medial branch blocks x2 (positive x 2), then had multiple RFA's, later had Epidurals. Was sent to Dr. Baeza, had decompression at L3-S1 on 12/12/2020, complicated by Sepsis, relief of lower limb pain. Reports that he is not having any pain in the legs, but has ongoing axial low back pain. Last seen 02/2023, recommended follow-up 1 year. Continues to have numbness in her lower limbs. Uses a rollator for balance.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 10-15 minutes without increased symptoms. Patient Goals: improve posture, reduce BUE pain, reduce neck and back pain Planned Interventions, Frequency, and Duration: Current Frequency: 1x/week Duration: 6 weeks Total Number of Visits Planned: 6 Planned Treatment Interventions: Therapeutic exercise (01242), Neuromuscular re- education (69063), Manual therapy (12489), Therapeutic activities (95764), Self- long-term management (87584), Gait Training (30627), Patient/Family/Caregiver Education PLAN FOR NEXT VISIT: Pt. would like to see pain management before continued PT to hear their opinion reguarding his neck pain Patient demonstrates good understanding of plan of care and treatment. The above goals and plan of care were discussed and agreed upon by patient/family. SUBJECTIVE: Javier Bond is a 82 year old male seen today for for chronic neck and back pain with ambulation. Pt. expresses much concern with his posture when he walks with walker. He tries to walk with good posture, but this causes increased neck and back pain. Pt. does not have balance concerns. He presents with his today. They live in a split level home with walkers at each floor which pt. uses. Pt. accesses each floor with a chair lift. Mod indep Patient Goals: improve posture, reduce BUE pain, reduce neck and back pain Functional Limitations: walking in the community, standing, sitting Prior Level of Function: Independent without limitations Relevant History Past Relevant Medical Conditions: Hypertension, Anxiety, Depression, Osteoporosis, Thyroid Disease Home Environment Patient Lives With: Spouse Intake Information: Prescription present Previous Treatment: Pain Management , Physical Therapy Falls Interview: No positive findings with falls interview Red Flags Vertebral Fracture Red Flags: Age >70 Vertebral Fracture Clinical Reasoning: Proceed with caution due to the above (1- 2) risk factors Abdominal Aortic Aneurysm Red Flags: Age >60 Abdominal Aortic Aneurysm Clinical Reasoning: Proceed with caution Cancer Red Flags: Age >50 or <20 Cancer Clinical Reasoning: Proceed with caution Infection Clinical Reasoning: No identified risk factors. Cauda Equina Syndrome Clinical Reasoning: No identified risk factors. Cervical Arterial Dysfunction Clinical Reasoning: No identified risk factors Cervical Myelopathy: Age > 45 yo Cervical Myelopathy Diagnostic Rule: Proceed with caution Red Flags - Cervical Cancer Red Flags: Age >50 or <20 Cancer Clinical Reasoning: Proceed with caution Infection Clinical Reasoning: No identified risk factors. Cervical Arterial Dysfunction Clinical Reasoning: No identified risk factors Cervical Myelopathy: Age > 45 yo Cervical Myelopathy Diagnostic Rule: Proceed with caution Spine History Symptoms Location at Onset: Neck Symptoms Since Onset: Worsening Pain is Worse Always: Standing, Walking Pain is Better Sometimes: Rest Pain: Pain Pain Level: (does not rate) Pain Location: Neck, Back Description: Aching Frequency: Standing, Walking Post Treatment Pain Post Treatment Pain Level: No Change Post Treatment Pain Location: Neck PROMIS Scales Higher is Better 04/12/2023 03/01/2023 07/13/2022 Phys Func - Score 32 (moderate dysfunction) 28 (severe dysfunction) 36 (moderate dysfunction) Phys Func - Percentile 4 % 1 % 8 % Self-Eff Symptom - Score 41 (Average) - - Self-Eff Symptom - Percentile 18 % - - T-scores: mean of general population = 50. 5 points is clinically meaningfully difference Percentiles provide an indication of how the patient's score ranks in relation to the general population. Higher percentile rankings indicate better function/quality of life. 50th percentile is the average of the general population and indicates half of respondents had a worse score. OBJECTIVE MEASURES WITH LEVEL OF FUNCTION: Posture / Alignment Posture: Forward head Effects of Posture Correction: unable to correct cervical spine posture, no difficulty with Spine Observations R Cervical Spine Palpation Tenderness: Upper trapezius L Cervical Spine Palpation Tenderness: Upper trapezius Sensation - Lumbar Sensation: Grossly Intact Sensation - Cervical Spine Cervical Spine Sensation: Grossly Intact Cervical Spine ROM Cervical ROM : Limitation AROM Cervical Protrusion AROM: Normal Cervical Retraction AROM: Moderate limitation Cervical Flexion AROM: Normal Cervical Extension AROM: Moderate limitation Cervical Side-Bend Right AROM: Major limitation Cervical Side-Bend Left AROM: Major limitation Cervical Rotation Right AROM: Normal Cervical Rotation Left AROM: Normal Upper Cervical AROM: pain with every active cervical movement UE Flexibility Flexibility: Upper Trapezius R Upper Trapezius Flexibilty Comments: very limited L Upper Trapezius Flexibility Comments: very limited Gait Gait: Modified Independent Gait Distance (feet): 100 Gait Device: Rollator Gait Deviations: General Deviations General Deviations/Observations: UE weight bearing on assistive device excessive, Step length decreased, Improper distancing from assistive device Gait Observation: pt. is able to follow cues to correct trunk posture - unable to correct cervical protrusion without pain Education: Education Learning Preferences: Demonstration, Explanation, Performance, Printed Materials Barriers: Acuity of Illness Learning/educational needs: Plan of Care, Home exercise program, Gait Training, Posture Education Provided: Yes, see treatment interventions for education provided Education Provided To: Patient Education Mode/Type: Demonstration, Explanation/Discussion, Performance Response to Education/Teach Back: States/Identifies, Return Demonstration TREATMENT: PT Treatment Interventions: Self-Senior Care Management, Gait Training Evaluation Gait Training: Pre gait training: correct adjustment of rollator-- pt. presents with correct adjustment Distance (feet): 100 Gait Cues: avoid excessive WB BUE through handles of FWW, maintain BLEs within base of rollator, correct cervical spine posture as able Assistive Device: rollator Skilled Intervention: Patient was provided stand by assist, supervision during pre-gait/gait training to prevent falls and insure safety. Facilitated proper gait cycle with the use of verbal, visual, and tactile cues for correction of gait deviations identified in the objective section above. Gait belt utilized during session for safety. Skilled judgment used to assess selection, proper sizing, and proper use of assistive device. Correct performance of home program was facilitated with verbal, visual, and tactile cueing. Self-Senior Care Management: 1: *postural education 2: *discussed that spine mobility/posture does not always return to WNL following a compression fracture, especially if he has a hx of multiple 3: *discussed PT's opinion that pt. may not benefit from a back brace, he demonstrates thoracic spine posture fairly WNL, lateral acromion process is in line with the hips, knees, and ankles, pt. hasa very forward head and he does not demonstrate the mobilty to correct witout severe pain reported with cervical spine retraction AROM. 4: *discussed that pt. may benefit from scapular and cervical postural control retraining and strengthening Skilled Intervention: Skilled judgment in the selection of proper modification for activity of daily living/home management based on clinical presentation, deficits, and needs. Reviewed patient specific diagnosis in relation to activities of daily living/home management. Activity progression based on professional judgement. Moderate verbal cues for maintaining neutral spine alignment. Provided written instruction for home program to facilitate proper performance and compliance. Correct performance of home program was facilitated with verbal, visual, and tactile cueing. Billing * Evaluation Low Complexity: 1 Unit Self-Care/Home Management Treatment Minutes: 15 Gait Training Treatment Minutes: 15 Total Treatment Time Minutes (timed/untimed): 50 Laurel Chavez PT documented in this encounterCh[facility]07-[facility]23 History of Past illness Narrative* Problem Noted Date Diagnosed Date Resolved Date Chronic neck pain 04/12/2023 07/18/2023 Moderate protein-calorie malnutrition 08/26/2022 10/04/2022 Esophageal diverticulum 06/24/202205/2023 Overview: S/p removal 08/2022 Sepsis due to Escherichia coli (E. coli) 12/17/2020 12/17/2020 Last Assessment & Plan: Assessment: 12/17 patient is tachycardic, hypotensive, lactate elevated, given some pressors and fluid by Amet, Blood culture pending. 12/16 UA and Ucx grow GNB. Started on zosyn. PLAN: - Zosyn - Follow up culture - Keep Map >65, pressors as needed, currently on Levo Hemodynamic instability 12/17/202012/2020 Last Assessment & Plan: Assessment: Likely urosepsis, on levo gtt PLAN: Keep Map >65, pressors as needed, currently on Levo Sepsis due to Gram-negative organism with septic shock 12/17/2020 12/22/2020 Last Assessment & Plan: Assessment: - Proteus identified in blood and urine, bourgeois-sensitive - Showed great improvement over the last 2 days - Now off pressors and extubated. PLAN: - Amikacin re-dosed 12/19. Continue zosyn - CT chest/abdomen/pelvis to assess for potential additional sources of infection was unremarkable. - Follow up C/S - Stress dose steroids Acute postoperative respiratory insufficiency 12/18/1912/22/2020 Last Assessment & Plan: Assessment: - PTX on 3/25 CXR, s/p 14Fr pigtail. This has been repositioned as needed. - Currently extubated with adequate O2 saturations on room air PLAN: - Monitor respiratory status. - Will assess tpday for Pigtail removal BRITTANY (acute kidney injury) 12/17/2020 Last Assessment & Plan: Assessment: - Resolving, likely prerenal versus less likely ATN given speed of improvement - Solute clearance appropriate - UOP good volume - New almanza inserted 12/17 PLAN: - Continue resuscitation - Trend CMP Delirium 12/16/2020 12/22/2020 Last Assessment & Plan: Delirium likely 2/2 infection. Geriatrics has been following PLAN: -- continue oxycodone 2.5-5mg every 4 hours as needed for pain (NGT) -- limit narcotic -- treat active infection/supportive care Hypomagnesemia 12/16/2020 12/17/2020 Last Assessment & Plan: Assessment: Hypomagnesemia PLAN: -Magnesium sulfate 2 gm IV x 1. -Monitor: signs, symptoms, disease progression, disease regression. -Evaluate: test results, medication effectiveness, response to treatment. Hypophosphataemia 12/16/2020 12/17/2020 Last Assessment & Plan: Assessment: Hypophosphatemia PLAN: -Sodium phosphate 30 mmol IV x 1. -Monitor: signs, symptoms, disease progression, disease regression. -Evaluate: test results, medication effectiveness, response to treatment. 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 Prostatocystitis 03/24/2009 08/13/2013 Duodenitis without mention of hemorrhage 12/26/2008 09/05/2014 Acute gastritis without mention of hemorrhage 12/27/19 09 09/05/2014 Complete rupture of rotator cuff 11/30/2002 09/05/2014 documented as of this encounter (statuses as of 07/19/2023) [facility] of Past illness Narrative* Problem Noted Date Diagnosed Date Resolved Date Chronic neck pain 04/12/2023 07/18/2023 Moderate protein-calorie malnutrition 08/26/2022 10/04/2022 Esophageal diverticulum 06/24/202205/2023 Overview: S/p removal 08/2022 Sepsis due to Escherichia coli (E. coli) 12/17/2020 12/17/2020 Last Assessment & Plan: Assessment: 12/17 patient is tachycardic, hypotensive, lactate elevated, given some pressors and fluid by Amet, Blood culture pending. 12/16 UA and Ucx grow GNB. Started on zosyn. PLAN: - Zosyn - Follow up culture - Keep Map >65, pressors as needed, currently on Levo Hemodynamic instability 12/17/2020 06/12/2020 Last Assessment & Plan: Assessment: Likely urosepsis, on levo gtt PLAN: Keep Map >65, pressors as needed, currently on Levo Sepsis due to Gram-negative organism with septic shock 12/17/2020 12/22/2020 Last Assessment & Plan: Assessment: - Proteus identified in blood and urine, bourgeois-sensitive - Showed great improvement over the last 2 days - Now off pressors and extubated. PLAN: - Amikacin re-dosed 12/19. Continue zosyn - CT chest/abdomen/pelvis to assess for potential additional sources of infection was unremarkable. - Follow up C/S - Stress dose steroids Acute postoperative respiratory insufficiency 12/18/19 21 12/22/2020 Last Assessment & Plan: Assessment: - PTX on 12/18 CXR, s/p 14Fr pigtail. This has been repositioned as needed. - Currently extubated with adequate O2 saturations on room air PLAN: - Monitor respiratory status. - Will assess tpday for Pigtail removal BRITTANY (acute kidney injury) 12/17/2020 Last Assessment & Plan: Assessment: - Resolving, likely prerenal versus less likely ATN given speed of improvement - Solute clearance appropriate - UOP good volume - New almanza inserted 12/17 PLAN: - Continue resuscitation - Trend CMP Delirium 12/16/2020 12/22/2020 Last Assessment & Plan: Delirium likely 2/2 infection. Geriatrics has been following PLAN: -- continue oxycodone 2.5-5mg every 4 hours as needed for pain (NGT) -- limit narcotic -- treat active infection/supportive care Hypomagnesemia 12/16/2020 12/17/2020 Last Assessment & Plan: Assessment: Hypomagnesemia PLAN: -Magnesium sulfate 2 gm IV x 1. -Monitor: signs, symptoms, disease progression, disease regression. -Evaluate: test results, medication effectiveness, response to treatment. Hypophosphataemia 12/16/2020 12/17/2020 Last Assessment & Plan: Assessment: Hypophosphatemia PLAN: -Sodium phosphate 30 mmol IV x 1. -Monitor: signs, symptoms, disease progression, disease regression. -Evaluate: test results, medication effectiveness, response to treatment. 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 Prostatocystitis 03/24/2009 08/13/2013 Duodenitis without mention of hemorrhage 12/26/2008 09/05/2014 Acute gastritis without mention of hemorrhage 12/27/19 09 09/05/2014 Complete rupture of rotator cuff 11/30/2002 09/05/2014 documented as of this encounter (statuses as of 07/20/2023) [facility] of Past illness Narrative* Problem Noted Date Diagnosed Date Resolved Date Chronic neck pain 04/12/2023 07/18/2023 Moderate protein-calorie malnutrition 08/26/2022 10/04/2022 Esophageal diverticulum 06/24/202205/2023 Overview: S/p removal 08/2022 Sepsis due to Escherichia coli (E. coli) 12/17/2020 12/17/2020 Last Assessment & Plan: Assessment: 12/17 patient is tachycardic, hypotensive, lactate elevated, given some pressors and fluid by Amet, Blood culture pending. 12/16 UA and Ucx grow GNB. Started on zosyn. PLAN: - Zosyn - Follow up culture - Keep Map >65, pressors as needed, currently on Levo Hemodynamic instability 12/17/202012/2020 Last Assessment & Plan: Assessment: Likely urosepsis, on levo gtt PLAN: Keep Map >65, pressors as needed, currently on Levo Sepsis due to Gram-negative organism with septic shock 12/17/2020 12/22/2020 Last Assessment & Plan: Assessment: - Proteus identified in blood and urine, bourgeois-sensitive - Showed great improvement over the last 2 days - Now off pressors and extubated. PLAN: - Amikacin re-dosed 12/19. Continue zosyn - CT chest/abdomen/pelvis to assess for potential additional sources of infection was unremarkable. - Follow up C/S - Stress dose steroids Acute postoperative respiratory insufficiency 12/18/1912/22/2020 Last Assessment & Plan: Assessment: - PTX on 12/18 CXR, s/p 14Fr pigtail. This has been repositioned as needed. - Currently extubated with adequate O2 saturations on room air PLAN: - Monitor respiratory status. - Will assess tpday for Pigtail removal BRITTANY (acute kidney injury) 12/17/2020 Last Assessment & Plan: Assessment: - Resolving, likely prerenal versus less likely ATN given speed of improvement - Solute clearance appropriate - UOP good volume - New almanza inserted 12/17 PLAN: - Continue resuscitation - Trend CMP Delirium 12/16/2020 12/22/2020 Last Assessment & Plan: Delirium likely 2/2 infection. Geriatrics has been following PLAN: -- continue oxycodone 2.5-5mg every 4 hours as needed for pain (NGT) -- limit narcotic -- treat active infection/supportive care Hypomagnesemia 12/16/2020 12/17/2020 Last Assessment & Plan: Assessment: Hypomagnesemia PLAN: -Magnesium sulfate 2 gm IV x 1. -Monitor: signs, symptoms, disease progression, disease regression. -Evaluate: test results, medication effectiveness, response to treatment. Hypophosphataemia 12/16/2020 12/17/2020 Last Assessment & Plan: Assessment: Hypophosphatemia PLAN: -Sodium phosphate 30 mmol IV x 1. -Monitor: signs, symptoms, disease progression, disease regression. -Evaluate: test results, medication effectiveness, response to treatment. 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 Prostatocystitis 03/24/2009 08/13/2013 Duodenitis without mention of hemorrhage 12/26/2008 09/05/2014 Acute gastritis without mention of hemorrhage 12/27/19 09 09/05/2014 Complete rupture of rotator cuff 11/30/2002 09/05/2014 documented as of this encounter (statuses as of 07/27/2023) [facility]-18-[facility]23 History of Past illness Narrative* Problem Noted Date Diagnosed Date Resolved Date Chronic neck pain 04/12/2023 07/18/2023 Moderate protein-calorie malnutrition 08/26/2022 10/04/2022 Esophageal diverticulum 06/24/202205/2023 Overview: S/p removal 08/2022 Sepsis due to Escherichia coli (E. coli) 12/17/2020 12/17/2020 Last Assessment & Plan: Assessment: 12/17 patient is tachycardic, hypotensive, lactate elevated, given some pressors and fluid by Amet, Blood culture pending. 12/16 UA and Ucx grow GNB. Started on zosyn. PLAN: - Zosyn - Follow up culture - Keep Map >65, pressors as needed, currently on Levo Hemodynamic instability 12/17/202012/2020 Last Assessment & Plan: Assessment: Likely urosepsis, on levo gtt PLAN: Keep Map >65, pressors as needed, currently on Levo Sepsis due to Gram-negative organism with septic shock 12/17/2020 12/22/2020 Last Assessment & Plan: Assessment: - Proteus identified in blood and urine, bourgeois-sensitive - Showed great improvement over the last 2 days - Now off pressors and extubated. PLAN: - Amikacin re-dosed 12/19. Continue zosyn - CT chest/abdomen/pelvis to assess for potential additional sources of infection was unremarkable. - Follow up C/S - Stress dose steroids Acute postoperative respiratory insufficiency 12/18/19 21 12/22/2020 Last Assessment & Plan: Assessment: - PTX on 12/18 CXR, s/p 14Fr pigtail. This has been repositioned as needed. - Currently extubated with adequate O2 saturations on room air PLAN: - Monitor respiratory status. - Will assess tpday for Pigtail removal BRITTANY (acute kidney injury) 12/17/2020 Last Assessment & Plan: Assessment: - Resolving, likely prerenal versus less likely ATN given speed of improvement - Solute clearance appropriate - UOP good volume - New almanza inserted 12/17 PLAN: - Continue resuscitation - Trend CMP Delirium 12/16/2020 12/22/2020 Last Assessment & Plan: Delirium likely 2/2 infection. Geriatrics has been following PLAN: -- continue oxycodone 2.5-5mg every 4 hours as needed for pain (NGT) -- limit narcotic -- treat active infection/supportive care Hypomagnesemia 12/16/2020 12/17/2020 Last Assessment & Plan: Assessment: Hypomagnesemia PLAN: -Magnesium sulfate 2 gm IV x 1. -Monitor: signs, symptoms, disease progression, disease regression. -Evaluate: test results, medication effectiveness, response to treatment. Hypophosphataemia 12/16/2020 12/17/2020 Last Assessment & Plan: Assessment: Hypophosphatemia PLAN: -Sodium phosphate 30 mmol IV x 1. -Monitor: signs, symptoms, disease progression, disease regression. -Evaluate: test results, medication effectiveness, response to treatment. 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 Prostatocystitis 03/24/2009 08/13/2013 Duodenitis without mention of hemorrhage 12/26/2008 09/05/2014 Acute gastritis without mention of hemorrhage 12/27/19 09 09/05/2014 Complete rupture of rotator cuff 11/30/2002 09/05/2014 documented as of this encounter (statuses as of 07/29/2023) [facility]-18[facility] History of Past illness Narrative* Problem Noted Date Diagnosed Date Resolved Date Chronic neck pain 04/12/2023 07/18/2023 Moderate protein-calorie malnutrition 08/26/2022 10/04/2022 Esophageal diverticulum 06/24/202205/2023 Overview: S/p removal 08/2022 Sepsis due to Escherichia coli (E. coli) 12/17/2020 12/17/2020 Last Assessment & Plan: Assessment: 12/17 patient is tachycardic, hypotensive, lactate elevated, given some pressors and fluid by Amet, Blood culture pending. 12/16 UA and Ucx grow GNB. Started on zosyn. PLAN: - Zosyn - Follow up culture - Keep Map >65, pressors as needed, currently on Levo Hemodynamic instability 12/17/202012/2020 Last Assessment & Plan: Assessment: Likely urosepsis, on levo gtt PLAN: Keep Map >65, pressors as needed, currently on Levo Sepsis due to Gram-negative organism with septic shock 12/17/2020 12/22/2020 Last Assessment & Plan: Assessment: - Proteus identified in blood and urine, bourgeois-sensitive - Showed great improvement over the last 2 days - Now off pressors and extubated. PLAN: - Amikacin re-dosed 12/19. Continue zosyn - CT chest/abdomen/pelvis to assess for potential additional sources of infection was unremarkable. - Follow up C/S - Stress dose steroids Acute postoperative respiratory insufficiency 12/18/1912/22/2020 Last Assessment & Plan: Assessment: - PTX on 12/18 CXR, s/p 14Fr pigtail. This has been repositioned as needed. - Currently extubated with adequate O2 saturations on room air PLAN: - Monitor respiratory status. - Will assess tpday for Pigtail removal BRITTANY (acute kidney injury) 12/17/2020 Last Assessment & Plan: Assessment: - Resolving, likely prerenal versus less likely ATN given speed of improvement - Solute clearance appropriate - UOP good volume - New almanza inserted 12/17 PLAN: - Continue resuscitation - Trend CMP Delirium 12/16/2020 12/22/2020 Last Assessment & Plan: Delirium likely 2/2 infection. Geriatrics has been following PLAN: -- continue oxycodone 2.5-5mg every 4 hours as needed for pain (NGT) -- limit narcotic -- treat active infection/supportive care Hypomagnesemia 12/16/2020 12/17/2020 Last Assessment & Plan: Assessment: Hypomagnesemia PLAN: -Magnesium sulfate 2 gm IV x 1. -Monitor: signs, symptoms, disease progression, disease regression. -Evaluate: test results, medication effectiveness, response to treatment. Hypophosphataemia 12/16/2020 12/17/2020 Last Assessment & Plan: Assessment: Hypophosphatemia PLAN: -Sodium phosphate 30 mmol IV x 1. -Monitor: signs, symptoms, disease progression, disease regression. -Evaluate: test results, medication effectiveness, response to treatment. 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 Prostatocystitis 03/24/2009 08/13/2013 Duodenitis without mention of hemorrhage 12/26/2008 09/05/2014 Acute gastritis without mention of hemorrhage 12/27/19 09 09/05/2014 Complete rupture of rotator cuff 11/30/2002 09/05/2014 documented as of this encounter (statuses as of 08/09/2023) [facility] History of Past illness Narrative* Problem Noted Date Diagnosed Date Resolved Date Chronic neck pain 04/12/2023 07/18/2023 Moderate protein-calorie malnutrition 08/26/2022 10/04/2022 Esophageal diverticulum 06/24/20220 05/2023 Overview: S/p removal 08/2022 Sepsis due to Escherichia coli (E. coli) 12/17/2020 12/17/2020 Last Assessment & Plan: Assessment: 12/17 patient is tachycardic, hypotensive, lactate elevated, given some pressors and fluid by Amet, Blood culture pending. 12/16 UA and Ucx grow GNB. Started on zosyn. PLAN: - Zosyn - Follow up culture - Keep Map >65, pressors as needed, currently on Levo Hemodynamic instability 12/17/202012/2020 Last Assessment & Plan: Assessment: Likely urosepsis, on levo gtt PLAN: Keep Map >65, pressors as needed, currently on Levo Sepsis due to Gram-negative organism with septic shock 12/17/2020 12/22/2020 Last Assessment & Plan: Assessment: - Proteus identified in blood and urine, bourgeois-sensitive - Showed great improvement over the last 2 days - Now off pressors and extubated. PLAN: - Amikacin re-dosed 12/19. Continue zosyn - CT chest/abdomen/pelvis to assess for potential additional sources of infection was unremarkable. - Follow up C/S - Stress dose steroids Acute postoperative respiratory insufficiency 12/18/1912/22/2020 Last Assessment & Plan: Assessment: - PTX on 12/18 CXR, s/p 14Fr pigtail. This has been repositioned as needed. - Currently extubated with adequate O2 saturations on room air PLAN: - Monitor respiratory status. - Will assess tpday for Pigtail removal BRITTANY (acute kidney injury) 12/17/2020 Last Assessment & Plan: Assessment: - Resolving, likely prerenal versus less likely ATN given speed of improvement - Solute clearance appropriate - UOP good volume - New almanza inserted 12/17 PLAN: - Continue resuscitation - Trend CMP Delirium 12/16/2020 12/22/2020 Last Assessment & Plan: Delirium likely 2/2 infection. Geriatrics has been following PLAN: -- continue oxycodone 2.5-5mg every 4 hours as needed for pain (NGT) -- limit narcotic -- treat active infection/supportive care Hypomagnesemia 12/16/2020 12/17/2020 Last Assessment & Plan: Assessment: Hypomagnesemia PLAN: -Magnesium sulfate 2 gm IV x 1. -Monitor: signs, symptoms, disease progression, disease regression. -Evaluate: test results, medication effectiveness, response to treatment. Hypophosphataemia 12/16/2020 12/17/2020 Last Assessment & Plan: Assessment: Hypophosphatemia PLAN: -Sodium phosphate 30 mmol IV x 1. -Monitor: signs, symptoms, disease progression, disease regression. -Evaluate: test results, medication effectiveness, response to treatment. 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 Prostatocystitis 03/24/2009 08/13/2013 Duodenitis without mention of hemorrhage 12/26/2008 09/05/2014 Acute gastritis without mention of hemorrhage 12/27/19 09 09/05/2014 Complete rupture of rotator cuff 11/30/2002 09/05/2014 documented as of this encounter (statuses as of 08/16/2023) [facility] History of Past illness Narrative* Problem Noted Date Diagnosed Date Resolved Date Chronic neck pain 04/12/2023 07/18/2023 Moderate protein-calorie malnutrition 08/26/2022 10/04/2022 Esophageal diverticulum 06/24/202205/2023 Overview: S/p removal 08/2022 Sepsis due to Escherichia coli (E. coli) 12/17/2020 12/17/2020 Last Assessment & Plan: Assessment: 12/17 patient is tachycardic, hypotensive, lactate elevated, given some pressors and fluid by Amet, Blood culture pending. 12/16 UA and Ucx grow GNB. Started on zosyn. PLAN: - Zosyn - Follow up culture - Keep Map >65, pressors as needed, currently on Levo Hemodynamic instability 12/17/2020 06/0 12/2020 Last Assessment & Plan: Assessment: Likely urosepsis, on levo gtt PLAN: Keep Map >65, pressors as needed, currently on Levo Sepsis due to Gram-negative organism with septic shock 12/17/2020 12/22/2020 Last Assessment & Plan: Assessment: - Proteus identified in blood and urine, bourgeois-sensitive - Showed great improvement over the last 2 days - Now off pressors and extubated. PLAN: - Amikacin re-dosed 12/19. Continue zosyn - CT chest/abdomen/pelvis to assess for potential additional sources of infection was unremarkable. - Follow up C/S - Stress dose steroids Acute postoperative respiratory insufficiency 12/18/1912/22/2020 Last Assessment & Plan: Assessment: - PTX on 12/18 CXR, s/p 14Fr pigtail. This has been repositioned as needed. - Currently extubated with adequate O2 saturations on room air PLAN: - Monitor respiratory status. - Will assess tpday for Pigtail removal BRITTANY (acute kidney injury) 12/17/2020 Last Assessment & Plan: Assessment: - Resolving, likely prerenal versus less likely ATN given speed of improvement - Solute clearance appropriate - UOP good volume - New almanza inserted 12/17 PLAN: - Continue resuscitation - Trend CMP Delirium 12/16/2020 12/22/2020 Last Assessment & Plan: Delirium likely 2/2 infection. Geriatrics has been following PLAN: -- continue oxycodone 2.5-5mg every 4 hours as needed for pain (NGT) -- limit narcotic -- treat active infection/supportive care Hypomagnesemia 12/16/2020 12/17/2020 Last Assessment & Plan: Assessment: Hypomagnesemia PLAN: -Magnesium sulfate 2 gm IV x 1. -Monitor: signs, symptoms, disease progression, disease regression. -Evaluate: test results, medication effectiveness, response to treatment. Hypophosphataemia 12/16/2020 12/17/2020 Last Assessment & Plan: Assessment: Hypophosphatemia PLAN: -Sodium phosphate 30 mmol IV x 1. -Monitor: signs, symptoms, disease progression, disease regression. -Evaluate: test results, medication effectiveness, response to treatment. 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 Prostatocystitis 03/24/2009 08/13/2013 Duodenitis without mention of hemorrhage 12/26/2008 09/05/2014 Acute gastritis without mention of hemorrhage 12/27/19 09 09/05/2014 Complete rupture of rotator cuff 11/30/2002 09/05/2014 documented as of this encounter (statuses as of 08/23/2023) [facility] History of Past illness Narrative* Problem Noted Date Diagnosed Date Resolved Date Chronic neck pain 04/12/2023 07/18/2023 Moderate protein-calorie malnutrition 08/26/2022 10/04/2022 Esophageal diverticulum 06/24/2022 01/05/2023 Overview: S/p removal 08/2022 Sepsis due to Escherichia coli (E. coli) 12/17/2020 12/17/2020 Last Assessment & Plan: Assessment: 12/17 patient is tachycardic, hypotensive, lactate elevated, given some pressors and fluid by Amet, Blood culture pending. 12/16 UA and Ucx grow GNB. Started on zosyn. PLAN: - Zosyn - Follow up culture - Keep Map >65, pressors as needed, currently on Levo Hemodynamic instability 12/17/2020 06/0 12/2020 Last Assessment & Plan: Assessment: Likely urosepsis, on levo gtt PLAN: Keep Map >65, pressors as needed, currently on Levo Sepsis due to Gram-negative organism with septic shock 12/17/2020 12/22/2020 Last Assessment & Plan: Assessment: - Proteus identified in blood and urine, bourgeois-sensitive - Showed great improvement over the last 2 days - Now off pressors and extubated. PLAN: - Amikacin re-dosed 12/19. Continue zosyn - CT chest/abdomen/pelvis to assess for potential additional sources of infection was unremarkable. - Follow up C/S - Stress dose steroids Acute postoperative respiratory insufficiency 12/18/1912/22/2020 Last Assessment & Plan: Assessment: - PTX on 12/18 CXR, s/p 14Fr pigtail. This has been repositioned as needed. - Currently extubated with adequate O2 saturations on room air PLAN: - Monitor respiratory status. - Will assess tpday for Pigtail removal BRITTANY (acute kidney injury) 12/17/2020 Last Assessment & Plan: Assessment: - Resolving, likely prerenal versus less likely ATN given speed of improvement - Solute clearance appropriate - UOP good volume - New almanza inserted 12/17 PLAN: - Continue resuscitation - Trend CMP Delirium 12/16/2020 12/22/2020 Last Assessment & Plan: Delirium likely 2/2 infection. Geriatrics has been following PLAN: -- continue oxycodone 2.5-5mg every 4 hours as needed for pain (NGT) -- limit narcotic -- treat active infection/supportive care Hypomagnesemia 12/16/2020 12/17/2020 Last Assessment & Plan: Assessment: Hypomagnesemia PLAN: -Magnesium sulfate 2 gm IV x 1. -Monitor: signs, symptoms, disease progression, disease regression. -Evaluate: test results, medication effectiveness, response to treatment. Hypophosphataemia 12/16/2020 12/17/2020 Last Assessment & Plan: Assessment: Hypophosphatemia PLAN: -Sodium phosphate 30 mmol IV x 1. -Monitor: signs, symptoms, disease progression, disease regression. -Evaluate: test results, medication effectiveness, response to treatment. 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 Prostatocystitis 03/24/2009 08/13/2013 Duodenitis without mention of hemorrhage 12/26/2008 09/05/2014 Acute gastritis without mention of hemorrhage 12/27/19 09 09/05/2014 Complete rupture of rotator cuff 11/30/2002 09/05/2014 documented as of this encounter (statuses as of 08/26/2023) [facility] History of Past illness Narrative* Problem Noted Date Diagnosed Date Resolved Date Chronic neck pain 04/12/2023 07/18/2023 Moderate protein-calorie malnutrition 08/26/2022 10/04/2022 Esophageal diverticulum 06/24/202205/2023 Overview: S/p removal 08/2022 Sepsis due to Escherichia coli (E. coli) 12/17/2020 12/17/2020 Last Assessment & Plan: Assessment: 12/17 patient is tachycardic, hypotensive, lactate elevated, given some pressors and fluid by Amet, Blood culture pending. 12/16 UA and Ucx grow GNB. Started on zosyn. PLAN: - Zosyn - Follow up culture - Keep Map >65, pressors as needed, currently on Levo Hemodynamic instability 12/17/2020 06/0 12/2020 Last Assessment & Plan: Assessment: Likely urosepsis, on levo gtt PLAN: Keep Map >65, pressors as needed, currently on Levo Sepsis due to Gram-negative organism with septic shock 12/17/2020 12/22/2020 Last Assessment & Plan: Assessment: - Proteus identified in blood and urine, bourgeois-sensitive - Showed great improvement over the last 2 days - Now off pressors and extubated. PLAN: - Amikacin re-dosed 12/19. Continue zosyn - CT chest/abdomen/pelvis to assess for potential additional sources of infection was unremarkable. - Follow up C/S - Stress dose steroids Acute postoperative respiratory insufficiency 12/18/1912/22/2020 Last Assessment & Plan: Assessment: - PTX on 12/18 CXR, s/p 14Fr pigtail. This has been repositioned as needed. - Currently extubated with adequate O2 saturations on room air PLAN: - Monitor respiratory status. - Will assess tpday for Pigtail removal BRITTANY (acute kidney injury) 12/17/2020 Last Assessment & Plan: Assessment: - Resolving, likely prerenal versus less likely ATN given speed of improvement - Solute clearance appropriate - UOP good volume - New almanza inserted 12/17 PLAN: - Continue resuscitation - Trend CMP Delirium 12/16/2020 12/22/2020 Last Assessment & Plan: Delirium likely 2/2 infection. Geriatrics has been following PLAN: -- continue oxycodone 2.5-5mg every 4 hours as needed for pain (NGT) -- limit narcotic -- treat active infection/supportive care Hypomagnesemia 12/16/2020 12/17/2020 Last Assessment & Plan: Assessment: Hypomagnesemia PLAN: -Magnesium sulfate 2 gm IV x 1. -Monitor: signs, symptoms, disease progression, disease regression. -Evaluate: test results, medication effectiveness, response to treatment. Hypophosphataemia 12/16/2020 12/17/2020 Last Assessment & Plan: Assessment: Hypophosphatemia PLAN: -Sodium phosphate 30 mmol IV x 1. -Monitor: signs, symptoms, disease progression, disease regression. -Evaluate: test results, medication effectiveness, response to treatment. 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 Prostatocystitis 03/24/2009 08/13/2013 Duodenitis without mention of hemorrhage 12/26/2008 09/05/2014 Acute gastritis without mention of hemorrhage 12/27/19 09 09/05/2014 Complete rupture of rotator cuff 11/30/2002 09/05/2014 documented as of this encounter (statuses as of 08/30/2023) [facility] History of Past illness Narrative* Problem Noted Date Diagnosed Date Resolved Date Chronic neck pain 04/12/2023 07/18/2023 Moderate protein-calorie malnutrition 08/26/2022 10/04/2022 Esophageal diverticulum 06/24/2022/05/2023 Overview: S/p removal 08/2022 Sepsis due to Escherichia coli (E. coli) 12/17/2020 12/17/2020 Last Assessment & Plan: Assessment: 12/17 patient is tachycardic, hypotensive, lactate elevated, given some pressors and fluid by Amet, Blood culture pending. 12/16 UA and Ucx grow GNB. Started on zosyn. PLAN: - Zosyn - Follow up culture - Keep Map >65, pressors as needed, currently on Levo Hemodynamic instability 12/17/2020 06/0 12/2020 Last Assessment & Plan: Assessment: Likely urosepsis, on levo gtt PLAN: Keep Map >65, pressors as needed, currently on Levo Sepsis due to Gram-negative organism with septic shock 12/17/2020 12/22/2020 Last Assessment & Plan: Assessment: - Proteus identified in blood and urine, bourgeois-sensitive - Showed great improvement over the last 2 days - Now off pressors and extubated. PLAN: - Amikacin re-dosed 12/19. Continue zosyn - CT chest/abdomen/pelvis to assess for potential additional sources of infection was unremarkable. - Follow up C/S - Stress dose steroids Acute postoperative respiratory insufficiency 12/18/1912/22/2020 Last Assessment & Plan: Assessment: - PTX on 12/18 CXR, s/p 14Fr pigtail. This has been repositioned as needed. - Currently extubated with adequate O2 saturations on room air PLAN: - Monitor respiratory status. - Will assess tpday for Pigtail removal BRITTANY (acute kidney injury) 12/17/2020 Last Assessment & Plan: Assessment: - Resolving, likely prerenal versus less likely ATN given speed of improvement - Solute clearance appropriate - UOP good volume - New almanza inserted 12/17 PLAN: - Continue resuscitation - Trend CMP Delirium 12/16/2020 12/22/2020 Last Assessment & Plan: Delirium likely 2/2 infection. Geriatrics has been following PLAN: -- continue oxycodone 2.5-5mg every 4 hours as needed for pain (NGT) -- limit narcotic -- treat active infection/supportive care Hypomagnesemia 12/16/2020 12/17/2020 Last Assessment & Plan: Assessment: Hypomagnesemia PLAN: -Magnesium sulfate 2 gm IV x 1. -Monitor: signs, symptoms, disease progression, disease regression. -Evaluate: test results, medication effectiveness, response to treatment. Hypophosphataemia 12/16/2020 12/17/2020 Last Assessment & Plan: Assessment: Hypophosphatemia PLAN: -Sodium phosphate 30 mmol IV x 1. -Monitor: signs, symptoms, disease progression, disease regression. -Evaluate: test results, medication effectiveness, response to treatment. 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 Prostatocystitis 03/24/2009 08/13/2013 Duodenitis without mention of hemorrhage 12/26/2008 09/05/2014 Acute gastritis without mention of hemorrhage 12/27/19 09 09/05/2014 Complete rupture of rotator cuff 11/30/2002 09/05/2014 documented as of this encounter (statuses as of 08/31/2023) [facility]-18-2023 History of Past illness Narrative* Problem Noted Date Diagnosed Date Resolved Date Chronic neck pain 04/12/2023 07/18/2023 Moderate protein-calorie malnutrition 08/26/2022 10/04/2022 Esophageal diverticulum 06/24/202205/2023 Overview: S/p removal 08/2022 Sepsis due to Escherichia coli (E. coli) 12/17/2020 12/17/2020 Last Assessment & Plan: Assessment: 12/17 patient is tachycardic, hypotensive, lactate elevated, given some pressors and fluid by Amet, Blood culture pending. 12/16 UA and Ucx grow GNB. Started on zosyn. PLAN: - Zosyn - Follow up culture - Keep Map >65, pressors as needed, currently on Levo Hemodynamic instability 12/17/2020 06/0 12/2020 Last Assessment & Plan: Assessment: Likely urosepsis, on levo gtt PLAN: Keep Map >65, pressors as needed, currently on Levo Sepsis due to Gram-negative organism with septic shock 12/17/2020 12/22/2020 Last Assessment & Plan: Assessment: - Proteus identified in blood and urine, bourgeois-sensitive - Showed great improvement over the last 2 days - Now off pressors and extubated. PLAN: - Amikacin re-dosed 12/19. Continue zosyn - CT chest/abdomen/pelvis to assess for potential additional sources of infection was unremarkable. - Follow up C/S - Stress dose steroids Acute postoperative respiratory insufficiency 12/18/1912/22/2020 Last Assessment & Plan: Assessment: - PTX on 12/18 CXR, s/p 14Fr pigtail. This has been repositioned as needed. - Currently extubated with adequate O2 saturations on room air PLAN: - Monitor respiratory status. - Will assess tpday for Pigtail removal BRITTANY (acute kidney injury) 12/17/2020 Last Assessment & Plan: Assessment: - Resolving, likely prerenal versus less likely ATN given speed of improvement - Solute clearance appropriate - UOP good volume - New almanza inserted 12/17 PLAN: - Continue resuscitation - Trend CMP Delirium 12/16/2020 12/22/2020 Last Assessment & Plan: Delirium likely 2/2 infection. Geriatrics has been following PLAN: -- continue oxycodone 2.5-5mg every 4 hours as needed for pain (NGT) -- limit narcotic -- treat active infection/supportive care Hypomagnesemia 12/16/2020 12/17/2020 Last Assessment & Plan: Assessment: Hypomagnesemia PLAN: -Magnesium sulfate 2 gm IV x 1. -Monitor: signs, symptoms, disease progression, disease regression. -Evaluate: test results, medication effectiveness, response to treatment. Hypophosphataemia 12/16/2020 12/17/2020 Last Assessment & Plan: Assessment: Hypophosphatemia PLAN: -Sodium phosphate 30 mmol IV x 1. -Monitor: signs, symptoms, disease progression, disease regression. -Evaluate: test results, medication effectiveness, response to treatment. 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 Prostatocystitis 03/24/2009 08/13/2013 Duodenitis without mention of hemorrhage 12/26/2008 09/05/2014 Acute gastritis without mention of hemorrhage 12/27/19 09 09/05/2014 Complete rupture of rotator cuff 11/30/2002 09/05/2014 documented as of this encounter (statuses as of 09/01/2023) [facility]23 History of Past illness Narrative* Problem Noted Date Diagnosed Date Resolved Date Chronic neck pain 04/12/2023 07/18/2023 Moderate protein-calorie malnutrition 08/26/2022 10/04/2022 Esophageal diverticulum 06/24/2022/05/2023 Overview: S/p removal 08/2022 Sepsis due to Escherichia coli (E. coli) 12/17/2020 12/17/2020 Last Assessment & Plan: Assessment: 12/17 patient is tachycardic, hypotensive, lactate elevated, given some pressors and fluid by Amet, Blood culture pending. 12/16 UA and Ucx grow GNB. Started on zosyn. PLAN: - Zosyn - Follow up culture - Keep Map >65, pressors as needed, currently on Levo Hemodynamic instability 12/17/20200 12/2020 Last Assessment & Plan: Assessment: Likely urosepsis, on levo gtt PLAN: Keep Map >65, pressors as needed, currently on Levo Sepsis due to Gram-negative organism with septic shock 12/17/2020 12/22/2020 Last Assessment & Plan: Assessment: - Proteus identified in blood and urine, bourgeois-sensitive - Showed great improvement over the last 2 days - Now off pressors and extubated. PLAN: - Amikacin re-dosed 12/19. Continue zosyn - CT chest/abdomen/pelvis to assess for potential additional sources of infection was unremarkable. - Follow up C/S - Stress dose steroids Acute postoperative respiratory insufficiency 12/18/19 21 12/22/2020 Last Assessment & Plan: Assessment: - PTX on 12/18 CXR, s/p 14Fr pigtail. This has been repositioned as needed. - Currently extubated with adequate O2 saturations on room air PLAN: - Monitor respiratory status. - Will assess tpday for Pigtail removal BRITTANY (acute kidney injury) 12/17/2020 Last Assessment & Plan: Assessment: - Resolving, likely prerenal versus less likely ATN given speed of improvement - Solute clearance appropriate - UOP good volume - New almanza inserted 12/17 PLAN: - Continue resuscitation - Trend CMP Delirium 12/16/2020 12/22/2020 Last Assessment & Plan: Delirium likely 2/2 infection. Geriatrics has been following PLAN: -- continue oxycodone 2.5-5mg every 4 hours as needed for pain (NGT) -- limit narcotic -- treat active infection/supportive care Hypomagnesemia 12/16/2020 12/17/2020 Last Assessment & Plan: Assessment: Hypomagnesemia PLAN: -Magnesium sulfate 2 gm IV x 1. -Monitor: signs, symptoms, disease progression, disease regression. -Evaluate: test results, medication effectiveness, response to treatment. Hypophosphataemia 12/16/2020 12/17/2020 Last Assessment & Plan: Assessment: Hypophosphatemia PLAN: -Sodium phosphate 30 mmol IV x 1. -Monitor: signs, symptoms, disease progression, disease regression. -Evaluate: test results, medication effectiveness, response to treatment. 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 Prostatocystitis 03/24/2009 08/13/2013 Duodenitis without mention of hemorrhage 12/26/2008 09/05/2014 Acute gastritis without mention of hemorrhage 12/27/19 09 09/05/2014 Complete rupture of rotator cuff 11/30/2002 09/05/2014 documented as of this encounter (statuses as of 09/02/2023) [facility] History of Past illness Narrative* Problem Noted Date Diagnosed Date Resolved Date Chronic neck pain 04/12/2023 07/18/2023 Moderate protein-calorie malnutrition 08/26/2022 10/04/2022 Esophageal diverticulum 06/24/202205/2023 Overview: S/p removal 08/2022 Sepsis due to Escherichia coli (E. coli) 12/17/2020 12/17/2020 Last Assessment & Plan: Assessment: 12/17 patient is tachycardic, hypotensive, lactate elevated, given some pressors and fluid by Amet, Blood culture pending. 12/16 UA and Ucx grow GNB. Started on zosyn. PLAN: - Zosyn - Follow up culture - Keep Map >65, pressors as needed, currently on Levo Hemodynamic instability 12/17/2020 06/12/2020 Last Assessment & Plan: Assessment: Likely urosepsis, on levo gtt PLAN: Keep Map >65, pressors as needed, currently on Levo Sepsis due to Gram-negative organism with septic shock 12/17/2020 12/22/2020 Last Assessment & Plan: Assessment: - Proteus identified in blood and urine, bourgeois-sensitive - Showed great improvement over the last 2 days - Now off pressors and extubated. PLAN: - Amikacin re-dosed 12/19. Continue zosyn - CT chest/abdomen/pelvis to assess for potential additional sources of infection was unremarkable. - Follow up C/S - Stress dose steroids Acute postoperative respiratory insufficiency 12/18/1912/22/2020 Last Assessment & Plan: Assessment: - PTX on 12/18 CXR, s/p 14Fr pigtail. This has been repositioned as needed. - Currently extubated with adequate O2 saturations on room air PLAN: - Monitor respiratory status. - Will assess tpday for Pigtail removal BRITTANY (acute kidney injury) 12/17/2020 Last Assessment & Plan: Assessment: - Resolving, likely prerenal versus less likely ATN given speed of improvement - Solute clearance appropriate - UOP good volume - New almanza inserted 12/17 PLAN: - Continue resuscitation - Trend CMP Delirium 12/16/2020 12/22/2020 Last Assessment & Plan: Delirium likely 2/2 infection. Geriatrics has been following PLAN: -- continue oxycodone 2.5-5mg every 4 hours as needed for pain (NGT) -- limit narcotic -- treat active infection/supportive care Hypomagnesemia 12/16/2020 12/17/2020 Last Assessment & Plan: Assessment: Hypomagnesemia PLAN: -Magnesium sulfate 2 gm IV x 1. -Monitor: signs, symptoms, disease progression, disease regression. -Evaluate: test results, medication effectiveness, response to treatment. Hypophosphataemia 12/16/2020 12/17/2020 Last Assessment & Plan: Assessment: Hypophosphatemia PLAN: -Sodium phosphate 30 mmol IV x 1. -Monitor: signs, symptoms, disease progression, disease regression. -Evaluate: test results, medication effectiveness, response to treatment. 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 Prostatocystitis 03/24/2009 08/13/2013 Duodenitis without mention of hemorrhage 12/26/2008 09/05/2014 Acute gastritis without mention of hemorrhage 12/27/1909/05/2014 Complete rupture of rotator cuff 11/30/2002 09/05/2014 documented as of this encounter (statuses as of 10/27/2023) [facility] History of Past illness Narrative* Problem Noted Date Diagnosed Date Resolved Date Chronic neck pain 04/12/2023 07/18/2023 Moderate protein-calorie malnutrition 08/26/2022 10/04/2022 Esophageal diverticulum 06/24/202205/2023 Overview: S/p removal 08/2022 Sepsis due to Escherichia coli (E. coli) 12/17/2020 12/17/2020 Last Assessment & Plan: Assessment: 12/17 patient is tachycardic, hypotensive, lactate elevated, given some pressors and fluid by Amet, Blood culture pending. 12/16 UA and Ucx grow GNB. Started on zosyn. PLAN: - Zosyn - Follow up culture - Keep Map >65, pressors as needed, currently on Levo Hemodynamic instability 12/17/2020 0612/2020 Last Assessment & Plan: Assessment: Likely urosepsis, on levo gtt PLAN: Keep Map >65, pressors as needed, currently on Levo Sepsis due to Gram-negative organism with septic shock 12/17/2020 12/22/2020 Last Assessment & Plan: Assessment: - Proteus identified in blood and urine, bourgeois-sensitive - Showed great improvement over the last 2 days - Now off pressors and extubated. PLAN: - Amikacin re-dosed 12/19. Continue zosyn - CT chest/abdomen/pelvis to assess for potential additional sources of infection was unremarkable. - Follow up C/S - Stress dose steroids Acute postoperative respiratory insufficiency 12/18/1912/22/2020 Last Assessment & Plan: Assessment: - PTX on 12/18 CXR, s/p 14Fr pigtail. This has been repositioned as needed. - Currently extubated with adequate O2 saturations on room air PLAN: - Monitor respiratory status. - Will assess tpday for Pigtail removal BRITTANY (acute kidney injury) 12/17/2020 Last Assessment & Plan: Assessment: - Resolving, likely prerenal versus less likely ATN given speed of improvement - Solute clearance appropriate - UOP good volume - New almanza inserted 12/17 PLAN: - Continue resuscitation - Trend CMP Delirium 12/16/2020 12/22/2020 Last Assessment & Plan: Delirium likely 2/2 infection. Geriatrics has been following PLAN: -- continue oxycodone 2.5-5mg every 4 hours as needed for pain (NGT) -- limit narcotic -- treat active infection/supportive care Hypomagnesemia 12/16/2020 12/17/2020 Last Assessment & Plan: Assessment: Hypomagnesemia PLAN: -Magnesium sulfate 2 gm IV x 1. -Monitor: signs, symptoms, disease progression, disease regression. -Evaluate: test results, medication effectiveness, response to treatment. Hypophosphataemia 12/16/2020 12/17/2020 Last Assessment & Plan: Assessment: Hypophosphatemia PLAN: -Sodium phosphate 30 mmol IV x 1. -Monitor: signs, symptoms, disease progression, disease regression. -Evaluate: test results, medication effectiveness, response to treatment. 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 Prostatocystitis 03/24/2009 08/13/2013 Duodenitis without mention of hemorrhage 12/26/2008 09/05/2014 Acute gastritis without mention of hemorrhage 12/27/1909/05/2014 Complete rupture of rotator cuff 11/30/2002 09/05/2014 documented as of this encounter (statuses as of 10/28/2023) [facility] History of Past illness Narrative* Problem Noted Date Diagnosed Date Resolved Date Chronic neck pain 04/12/2023 07/18/2023 Moderate protein-calorie malnutrition 08/26/2022 10/04/2022 Esophageal diverticulum 06/24/202205/2023 Overview: S/p removal 08/2022 Sepsis due to Escherichia coli (E. coli) 12/17/2020 12/17/2020 Last Assessment & Plan: Assessment: 12/17 patient is tachycardic, hypotensive, lactate elevated, given some pressors and fluid by Amet, Blood culture pending. 12/16 UA and Ucx grow GNB. Started on zosyn. PLAN: - Zosyn - Follow up culture - Keep Map >65, pressors as needed, currently on Levo Hemodynamic instability 12/17/202012/2020 Last Assessment & Plan: Assessment: Likely urosepsis, on levo gtt PLAN: Keep Map >65, pressors as needed, currently on Levo Sepsis due to Gram-negative organism with septic shock 12/17/2020 12/22/2020 Last Assessment & Plan: Assessment: - Proteus identified in blood and urine, bourgeois-sensitive - Showed great improvement over the last 2 days - Now off pressors and extubated. PLAN: - Amikacin re-dosed 12/19. Continue zosyn - CT chest/abdomen/pelvis to assess for potential additional sources of infection was unremarkable. - Follow up C/S - Stress dose steroids Acute postoperative respiratory insufficiency 12/18/19 21 12/22/2020 Last Assessment & Plan: Assessment: - PTX on 12/18 CXR, s/p 14Fr pigtail. This has been repositioned as needed. - Currently extubated with adequate O2 saturations on room air PLAN: - Monitor respiratory status. - Will assess tpday for Pigtail removal BRITTANY (acute kidney injury) 12/17/2020 Last Assessment & Plan: Assessment: - Resolving, likely prerenal versus less likely ATN given speed of improvement - Solute clearance appropriate - UOP good volume - New almanza inserted 12/17 PLAN: - Continue resuscitation - Trend CMP Delirium 12/16/2020 12/22/2020 Last Assessment & Plan: Delirium likely 2/2 infection. Geriatrics has been following PLAN: -- continue oxycodone 2.5-5mg every 4 hours as needed for pain (NGT) -- limit narcotic -- treat active infection/supportive care Hypomagnesemia 12/16/2020 12/17/2020 Last Assessment & Plan: Assessment: Hypomagnesemia PLAN: -Magnesium sulfate 2 gm IV x 1. -Monitor: signs, symptoms, disease progression, disease regression. -Evaluate: test results, medication effectiveness, response to treatment. Hypophosphataemia 12/16/2020 12/17/2020 Last Assessment & Plan: Assessment: Hypophosphatemia PLAN: -Sodium phosphate 30 mmol IV x 1. -Monitor: signs, symptoms, disease progression, disease regression. -Evaluate: test results, medication effectiveness, response to treatment. 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 Prostatocystitis 03/24/2009 08/13/2013 Duodenitis without mention of hemorrhage 12/26/2008 09/05/2014 Acute gastritis without mention of hemorrhage 12/27/1909/05/2014 Complete rupture of rotator cuff 11/30/2002 09/05/2014 documented as of this encounter (statuses as of 11/04/2023) [facility] History of Past illness Narrative* Problem Noted Date Diagnosed Date Resolved Date Chronic neck pain 04/12/2023 07/18/2023 Moderate protein-calorie malnutrition 08/26/2022 10/04/2022 Esophageal diverticulum 06/24/202205/2023 Overview: S/p removal 08/2022 Sepsis due to Escherichia coli (E. coli) 12/17/2020 12/17/2020 Last Assessment & Plan: Assessment: 12/17 patient is tachycardic, hypotensive, lactate elevated, given some pressors and fluid by Amet, Blood culture pending. 12/16 UA and Ucx grow GNB. Started on zosyn. PLAN: - Zosyn - Follow up culture - Keep Map >65, pressors as needed, currently on Levo Hemodynamic instability 12/17/202012/2020 Last Assessment & Plan: Assessment: Likely urosepsis, on levo gtt PLAN: Keep Map >65, pressors as needed, currently on Levo Sepsis due to Gram-negative organism with septic shock 12/17/2020 12/22/2020 Last Assessment & Plan: Assessment: - Proteus identified in blood and urine, bourgeois-sensitive - Showed great improvement over the last 2 days - Now off pressors and extubated. PLAN: - Amikacin re-dosed 12/19. Continue zosyn - CT chest/abdomen/pelvis to assess for potential additional sources of infection was unremarkable. - Follow up C/S - Stress dose steroids Acute postoperative respiratory insufficiency 12/18/19 21 12/22/2020 Last Assessment & Plan: Assessment: - PTX on 12/18 CXR, s/p 14Fr pigtail. This has been repositioned as needed. - Currently extubated with adequate O2 saturations on room air PLAN: - Monitor respiratory status. - Will assess tpday for Pigtail removal BRITTANY (acute kidney injury) 12/17/2020 Last Assessment & Plan: Assessment: - Resolving, likely prerenal versus less likely ATN given speed of improvement - Solute clearance appropriate - UOP good volume - New almanza inserted 12/17 PLAN: - Continue resuscitation - Trend CMP Delirium 12/16/2020 12/22/2020 Last Assessment & Plan: Delirium likely 2/2 infection. Geriatrics has been following PLAN: -- continue oxycodone 2.5-5mg every 4 hours as needed for pain (NGT) -- limit narcotic -- treat active infection/supportive care Hypomagnesemia 12/16/2020 12/17/2020 Last Assessment & Plan: Assessment: Hypomagnesemia PLAN: -Magnesium sulfate 2 gm IV x 1. -Monitor: signs, symptoms, disease progression, disease regression. -Evaluate: test results, medication effectiveness, response to treatment. Hypophosphataemia 12/16/2020 12/17/2020 Last Assessment & Plan: Assessment: Hypophosphatemia PLAN: -Sodium phosphate 30 mmol IV x 1. -Monitor: signs, symptoms, disease progression, disease regression. -Evaluate: test results, medication effectiveness, response to treatment. 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 Prostatocystitis 03/24/2009 08/13/2013 Duodenitis without mention of hemorrhage 12/26/2008 09/05/2014 Acute gastritis without mention of hemorrhage 12/27/19 09 09/05/2014 Complete rupture of rotator cuff 11/30/2002 09/05/2014 documented as of this encounter (statuses as of 11/14/2023) [facility] History of Past illness Narrative* Problem Noted Date Diagnosed Date Resolved Date Chronic neck pain 04/12/2023 07/18/2023 Moderate protein-calorie malnutrition 08/26/2022 10/04/2022 Esophageal diverticulum 06/24/202205/2023 Overview: S/p removal 08/2022 Sepsis due to Escherichia coli (E. coli) 12/17/2020 12/17/2020 Last Assessment & Plan: Assessment: 12/17 patient is tachycardic, hypotensive, lactate elevated, given some pressors and fluid by Amet, Blood culture pending. 12/16 UA and Ucx grow GNB. Started on zosyn. PLAN: - Zosyn - Follow up culture - Keep Map >65, pressors as needed, currently on Levo Hemodynamic instability 12/17/202012/2020 Last Assessment & Plan: Assessment: Likely urosepsis, on levo gtt PLAN: Keep Map >65, pressors as needed, currently on Levo Sepsis due to Gram-negative organism with septic shock 12/17/2020 12/22/2020 Last Assessment & Plan: Assessment: - Proteus identified in blood and urine, bourgeois-sensitive - Showed great improvement over the last 2 days - Now off pressors and extubated. PLAN: - Amikacin re-dosed 12/19. Continue zosyn - CT chest/abdomen/pelvis to assess for potential additional sources of infection was unremarkable. - Follow up C/S - Stress dose steroids Acute postoperative respiratory insufficiency 12/18/19 21 12/22/2020 Last Assessment & Plan: Assessment: - PTX on 12/18 CXR, s/p 14Fr pigtail. This has been repositioned as needed. - Currently extubated with adequate O2 saturations on room air PLAN: - Monitor respiratory status. - Will assess tpday for Pigtail removal BRITTANY (acute kidney injury) 12/17/2020 Last Assessment & Plan: Assessment: - Resolving, likely prerenal versus less likely ATN given speed of improvement - Solute clearance appropriate - UOP good volume - New almanza inserted 12/17 PLAN: - Continue resuscitation - Trend CMP Delirium 12/16/2020 12/22/2020 Last Assessment & Plan: Delirium likely 2/2 infection. Geriatrics has been following PLAN: -- continue oxycodone 2.5-5mg every 4 hours as needed for pain (NGT) -- limit narcotic -- treat active infection/supportive care Hypomagnesemia 12/16/2020 12/17/2020 Last Assessment & Plan: Assessment: Hypomagnesemia PLAN: -Magnesium sulfate 2 gm IV x 1. -Monitor: signs, symptoms, disease progression, disease regression. -Evaluate: test results, medication effectiveness, response to treatment. Hypophosphataemia 12/16/2020 12/17/2020 Last Assessment & Plan: Assessment: Hypophosphatemia PLAN: -Sodium phosphate 30 mmol IV x 1. -Monitor: signs, symptoms, disease progression, disease regression. -Evaluate: test results, medication effectiveness, response to treatment. 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 Prostatocystitis 03/24/2009 08/13/2013 Duodenitis without mention of hemorrhage 12/26/2008 09/05/2014 Acute gastritis without mention of hemorrhage 12/27/1909/05/2014 Complete rupture of rotator cuff 11/30/2002 09/05/2014 documented as of this encounter (statuses as of 11/14/2023) [facility]07-18-2023 History of Past illness Narrative* Problem Noted Date Diagnosed Date Resolved Date Chronic neck pain 04/12/2023 07/18/2023 Moderate protein-calorie malnutrition 08/26/2022 10/04/2022 Esophageal diverticulum 06/24/202205/2023 Overview: S/p removal 08/2022 Sepsis due to Escherichia coli (E. coli) 12/17/2020 12/17/2020 Last Assessment & Plan: Assessment: 12/17 patient is tachycardic, hypotensive, lactate elevated, given some pressors and fluid by Amet, Blood culture pending. 12/16 UA and Ucx grow GNB. Started on zosyn. PLAN: - Zosyn - Follow up culture - Keep Map >65, pressors as needed, currently on Levo Hemodynamic instability 12/17/202012/2020 Last Assessment & Plan: Assessment: Likely urosepsis, on levo gtt PLAN: Keep Map >65, pressors as needed, currently on Levo Sepsis due to Gram-negative organism with septic shock 12/17/2020 12/22/2020 Last Assessment & Plan: Assessment: - Proteus identified in blood and urine, bourgeois-sensitive - Showed great improvement over the last 2 days - Now off pressors and extubated. PLAN: - Amikacin re-dosed 12/19. Continue zosyn - CT chest/abdomen/pelvis to assess for potential additional sources of infection was unremarkable. - Follow up C/S - Stress dose steroids Acute postoperative respiratory insufficiency 12/18/19 21 12/22/2020 Last Assessment & Plan: Assessment: - PTX on 12/18 CXR, s/p 14Fr pigtail. This has been repositioned as needed. - Currently extubated with adequate O2 saturations on room air PLAN: - Monitor respiratory status. - Will assess tpday for Pigtail removal BRITTANY (acute kidney injury) 12/17/2020 Last Assessment & Plan: Assessment: - Resolving, likely prerenal versus less likely ATN given speed of improvement - Solute clearance appropriate - UOP good volume - New almanza inserted 12/17 PLAN: - Continue resuscitation - Trend CMP Delirium 12/16/2020 12/22/2020 Last Assessment & Plan: Delirium likely 2/2 infection. Geriatrics has been following PLAN: -- continue oxycodone 2.5-5mg every 4 hours as needed for pain (NGT) -- limit narcotic -- treat active infection/supportive care Hypomagnesemia 12/16/2020 12/17/2020 Last Assessment & Plan: Assessment: Hypomagnesemia PLAN: -Magnesium sulfate 2 gm IV x 1. -Monitor: signs, symptoms, disease progression, disease regression. -Evaluate: test results, medication effectiveness, response to treatment. Hypophosphataemia 12/16/2020 12/17/2020 Last Assessment & Plan: Assessment: Hypophosphatemia PLAN: -Sodium phosphate 30 mmol IV x 1. -Monitor: signs, symptoms, disease progression, disease regression. -Evaluate: test results, medication effectiveness, response to treatment. 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 Prostatocystitis 03/24/2009 08/13/2013 Duodenitis without mention of hemorrhage 12/26/2008 09/05/2014 Acute gastritis without mention of hemorrhage 12/27/1909/05/2014 Complete rupture of rotator cuff 11/30/2002 09/05/2014 documented as of this encounter (statuses as of 11/16/2023) [facility]2023 History of Past illness Narrative* Problem Noted Date Diagnosed Date Resolved Date Chronic neck pain 04/12/2023 07/18/2023 Moderate protein-calorie malnutrition 08/26/2022 10/04/2022 Esophageal diverticulum 06/24/202205/2023 Overview: S/p removal 08/2022 Sepsis due to Escherichia coli (E. coli) 12/17/2020 12/17/2020 Last Assessment & Plan: Assessment: 12/17 patient is tachycardic, hypotensive, lactate elevated, given some pressors and fluid by Amet, Blood culture pending. 12/16 UA and Ucx grow GNB. Started on zosyn. PLAN: - Zosyn - Follow up culture - Keep Map >65, pressors as needed, currently on Levo Hemodynamic instability 12/17/202012/2020 Last Assessment & Plan: Assessment: Likely urosepsis, on levo gtt PLAN: Keep Map >65, pressors as needed, currently on Levo Sepsis due to Gram-negative organism with septic shock 12/17/2020 12/22/2020 Last Assessment & Plan: Assessment: - Proteus identified in blood and urine, bourgeois-sensitive - Showed great improvement over the last 2 days - Now off pressors and extubated. PLAN: - Amikacin re-dosed 12/19. Continue zosyn - CT chest/abdomen/pelvis to assess for potential additional sources of infection was unremarkable. - Follow up C/S - Stress dose steroids Acute postoperative respiratory insufficiency 12/18/1912/22/2020 Last Assessment & Plan: Assessment: - PTX on 12/18 CXR, s/p 14Fr pigtail. This has been repositioned as needed. - Currently extubated with adequate O2 saturations on room air PLAN: - Monitor respiratory status. - Will assess tpday for Pigtail removal BRITTANY (acute kidney injury) 12/17/2020 Last Assessment & Plan: Assessment: - Resolving, likely prerenal versus less likely ATN given speed of improvement - Solute clearance appropriate - UOP good volume - New almanza inserted 12/17 PLAN: - Continue resuscitation - Trend CMP Delirium 12/16/2020 12/22/2020 Last Assessment & Plan: Delirium likely 2/2 infection. Geriatrics has been following PLAN: -- continue oxycodone 2.5-5mg every 4 hours as needed for pain (NGT) -- limit narcotic -- treat active infection/supportive care Hypomagnesemia 12/16/2020 12/17/2020 Last Assessment & Plan: Assessment: Hypomagnesemia PLAN: -Magnesium sulfate 2 gm IV x 1. -Monitor: signs, symptoms, disease progression, disease regression. -Evaluate: test results, medication effectiveness, response to treatment. Hypophosphataemia 12/16/2020 12/17/2020 Last Assessment & Plan: Assessment: Hypophosphatemia PLAN: -Sodium phosphate 30 mmol IV x 1. -Monitor: signs, symptoms, disease progression, disease regression. -Evaluate: test results, medication effectiveness, response to treatment. 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 Prostatocystitis 03/24/2009 08/13/2013 Duodenitis without mention of hemorrhage 12/26/2008 09/05/2014 Acute gastritis without mention of hemorrhage 12/27/1909/05/2014 Complete rupture of rotator cuff 11/30/2002 09/05/2014 documented as of this encounter (statuses as of 11/23/2023) [facility] History of Past illness Narrative* Problem Noted Date Diagnosed Date Resolved Date Chronic neck pain 04/12/2023 07/18/2023 Moderate protein-calorie malnutrition 08/26/2022 10/04/2022 Esophageal diverticulum 06/24/202205/2023 Overview: S/p removal 08/2022 Sepsis due to Escherichia coli (E. coli) 12/17/2020 12/17/2020 Last Assessment & Plan: Assessment: 12/17 patient is tachycardic, hypotensive, lactate elevated, given some pressors and fluid by Amet, Blood culture pending. 12/16 UA and Ucx grow GNB. Started on zosyn. PLAN: - Zosyn - Follow up culture - Keep Map >65, pressors as needed, currently on Levo Hemodynamic instability 12/17/202012/2020 Last Assessment & Plan: Assessment: Likely urosepsis, on levo gtt PLAN: Keep Map >65, pressors as needed, currently on Levo Sepsis due to Gram-negative organism with septic shock 12/17/2020 12/22/2020 Last Assessment & Plan: Assessment: - Proteus identified in blood and urine, bourgeois-sensitive - Showed great improvement over the last 2 days - Now off pressors and extubated. PLAN: - Amikacin re-dosed 12/19. Continue zosyn - CT chest/abdomen/pelvis to assess for potential additional sources of infection was unremarkable. - Follow up C/S - Stress dose steroids Acute postoperative respiratory insufficiency 12/18/1912/22/2020 Last Assessment & Plan: Assessment: - PTX on 12/18 CXR, s/p 14Fr pigtail. This has been repositioned as needed. - Currently extubated with adequate O2 saturations on room air PLAN: - Monitor respiratory status. - Will assess tpday for Pigtail removal BRITTANY (acute kidney injury) 12/17/2020 Last Assessment & Plan: Assessment: - Resolving, likely prerenal versus less likely ATN given speed of improvement - Solute clearance appropriate - UOP good volume - New almanza inserted 12/17 PLAN: - Continue resuscitation - Trend CMP Delirium 12/16/2020 12/22/2020 Last Assessment & Plan: Delirium likely 2/2 infection. Geriatrics has been following PLAN: -- continue oxycodone 2.5-5mg every 4 hours as needed for pain (NGT) -- limit narcotic -- treat active infection/supportive care Hypomagnesemia 12/16/2020 12/17/2020 Last Assessment & Plan: Assessment: Hypomagnesemia PLAN: -Magnesium sulfate 2 gm IV x 1. -Monitor: signs, symptoms, disease progression, disease regression. -Evaluate: test results, medication effectiveness, response to treatment. Hypophosphataemia 12/16/2020 12/17/2020 Last Assessment & Plan: Assessment: Hypophosphatemia PLAN: -Sodium phosphate 30 mmol IV x 1. -Monitor: signs, symptoms, disease progression, disease regression. -Evaluate: test results, medication effectiveness, response to treatment. 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 Prostatocystitis 03/24/2009 08/13/2013 Duodenitis without mention of hemorrhage 12/26/2008 09/05/2014 Acute gastritis without mention of hemorrhage 12/27/19 09 09/05/2014 Complete rupture of rotator cuff 11/30/2002 09/05/2014 documented as of this encounter (statuses as of 11/23/2023) [facility] History of Past illness Narrative* Problem Noted Date Diagnosed Date Resolved Date Chronic neck pain 04/12/2023 07/18/2023 Moderate protein-calorie malnutrition 08/26/2022 10/04/2022 Esophageal diverticulum 06/24/2022/0 05/2023 Overview: S/p removal 08/2022 Sepsis due to Escherichia coli (E. coli) 12/17/2020 12/17/2020 Last Assessment & Plan: Assessment: 12/17 patient is tachycardic, hypotensive, lactate elevated, given some pressors and fluid by Amet, Blood culture pending. 12/16 UA and Ucx grow GNB. Started on zosyn. PLAN: - Zosyn - Follow up culture - Keep Map >65, pressors as needed, currently on Levo Hemodynamic instability 12/17/2020 06/0 12/2020 Last Assessment & Plan: Assessment: Likely urosepsis, on levo gtt PLAN: Keep Map >65, pressors as needed, currently on Levo Sepsis due to Gram-negative organism with septic shock 12/17/2020 12/22/2020 Last Assessment & Plan: Assessment: - Proteus identified in blood and urine, bourgeois-sensitive - Showed great improvement over the last 2 days - Now off pressors and extubated. PLAN: - Amikacin re-dosed 12/19. Continue zosyn - CT chest/abdomen/pelvis to assess for potential additional sources of infection was unremarkable. - Follow up C/S - Stress dose steroids Acute postoperative respiratory insufficiency 12/18/19 21 12/22/2020 Last Assessment & Plan: Assessment: - PTX on 12/18 CXR, s/p 14Fr pigtail. This has been repositioned as needed. - Currently extubated with adequate O2 saturations on room air PLAN: - Monitor respiratory status. - Will assess tpday for Pigtail removal BRITTANY (acute kidney injury) 12/17/2020 Last Assessment & Plan: Assessment: - Resolving, likely prerenal versus less likely ATN given speed of improvement - Solute clearance appropriate - UOP good volume - New almanza inserted 12/17 PLAN: - Continue resuscitation - Trend CMP Delirium 12/16/2020 12/22/2020 Last Assessment & Plan: Delirium likely 2/2 infection. Geriatrics has been following PLAN: -- continue oxycodone 2.5-5mg every 4 hours as needed for pain (NGT) -- limit narcotic -- treat active infection/supportive care Hypomagnesemia 12/16/2020 12/17/2020 Last Assessment & Plan: Assessment: Hypomagnesemia PLAN: -Magnesium sulfate 2 gm IV x 1. -Monitor: signs, symptoms, disease progression, disease regression. -Evaluate: test results, medication effectiveness, response to treatment. Hypophosphataemia 12/16/2020 12/17/2020 Last Assessment & Plan: Assessment: Hypophosphatemia PLAN: -Sodium phosphate 30 mmol IV x 1. -Monitor: signs, symptoms, disease progression, disease regression. -Evaluate: test results, medication effectiveness, response to treatment. 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 Prostatocystitis 03/24/2009 08/13/2013 Duodenitis without mention of hemorrhage 12/26/2008 09/05/2014 Acute gastritis without mention of hemorrhage 12/27/19 09 09/05/2014 Complete rupture of rotator cuff 11/30/2002 09/05/2014 documented as of this encounter (statuses as of 11/25/2023) [facility] History of Past illness Narrative* Problem Noted Date Diagnosed Date Resolved Date Chronic neck pain 04/12/2023 07/18/2023 Moderate protein-calorie malnutrition 08/26/2022 10/04/2022 Esophageal diverticulum 06/24/202205/2023 Overview: S/p removal 08/2022 Sepsis due to Escherichia coli (E. coli) 12/17/2020 12/17/2020 Last Assessment & Plan: Assessment: 12/17 patient is tachycardic, hypotensive, lactate elevated, given some pressors and fluid by Amet, Blood culture pending. 12/16 UA and Ucx grow GNB. Started on zosyn. PLAN: - Zosyn - Follow up culture - Keep Map >65, pressors as needed, currently on Levo Hemodynamic instability 12/17/202012/2020 Last Assessment & Plan: Assessment: Likely urosepsis, on levo gtt PLAN: Keep Map >65, pressors as needed, currently on Levo Sepsis due to Gram-negative organism with septic shock 12/17/2020 12/22/2020 Last Assessment & Plan: Assessment: - Proteus identified in blood and urine, bourgeois-sensitive - Showed great improvement over the last 2 days - Now off pressors and extubated. PLAN: - Amikacin re-dosed 12/19. Continue zosyn - CT chest/abdomen/pelvis to assess for potential additional sources of infection was unremarkable. - Follow up C/S - Stress dose steroids Acute postoperative respiratory insufficiency 12/18/1912/22/2020 Last Assessment & Plan: Assessment: - PTX on 12/18 CXR, s/p 14Fr pigtail. This has been repositioned as needed. - Currently extubated with adequate O2 saturations on room air PLAN: - Monitor respiratory status. - Will assess tpday for Pigtail removal BRITTANY (acute kidney injury) 12/17/2020 Last Assessment & Plan: Assessment: - Resolving, likely prerenal versus less likely ATN given speed of improvement - Solute clearance appropriate - UOP good volume - New almanza inserted 12/17 PLAN: - Continue resuscitation - Trend CMP Delirium 12/16/2020 12/22/2020 Last Assessment & Plan: Delirium likely 2/2 infection. Geriatrics has been following PLAN: -- continue oxycodone 2.5-5mg every 4 hours as needed for pain (NGT) -- limit narcotic -- treat active infection/supportive care Hypomagnesemia 12/16/2020 12/17/2020 Last Assessment & Plan: Assessment: Hypomagnesemia PLAN: -Magnesium sulfate 2 gm IV x 1. -Monitor: signs, symptoms, disease progression, disease regression. -Evaluate: test results, medication effectiveness, response to treatment. Hypophosphataemia 12/16/2020 12/17/2020 Last Assessment & Plan: Assessment: Hypophosphatemia PLAN: -Sodium phosphate 30 mmol IV x 1. -Monitor: signs, symptoms, disease progression, disease regression. -Evaluate: test results, medication effectiveness, response to treatment. 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 Prostatocystitis 03/24/2009 08/13/2013 Duodenitis without mention of hemorrhage 12/26/2008 09/05/2014 Acute gastritis without mention of hemorrhage 12/27/19 09 09/05/2014 Complete rupture of rotator cuff 11/30/2002 09/05/2014 documented as of this encounter (statuses as of 11/25/2023) [facility] History of Past illness Narrative* Problem Noted Date Diagnosed Date Resolved Date Chronic neck pain 04/12/2023 07/18/2023 Moderate protein-calorie malnutrition 08/26/2022 10/04/2022 Esophageal diverticulum 06/24/202205/2023 Overview: S/p removal 08/2022 Sepsis due to Escherichia coli (E. coli) 12/17/2020 12/17/2020 Last Assessment & Plan: Assessment: 12/17 patient is tachycardic, hypotensive, lactate elevated, given some pressors and fluid by Amet, Blood culture pending. 12/16 UA and Ucx grow GNB. Started on zosyn. PLAN: - Zosyn - Follow up culture - Keep Map >65, pressors as needed, currently on Levo Hemodynamic instability 12/17/202012/2020 Last Assessment & Plan: Assessment: Likely urosepsis, on levo gtt PLAN: Keep Map >65, pressors as needed, currently on Levo Sepsis due to Gram-negative organism with septic shock 12/17/2020 12/22/2020 Last Assessment & Plan: Assessment: - Proteus identified in blood and urine, bourgeois-sensitive - Showed great improvement over the last 2 days - Now off pressors and extubated. PLAN: - Amikacin re-dosed 12/19. Continue zosyn - CT chest/abdomen/pelvis to assess for potential additional sources of infection was unremarkable. - Follow up C/S - Stress dose steroids Acute postoperative respiratory insufficiency 12/18/1912/22/2020 Last Assessment & Plan: Assessment: - PTX on 12/18 CXR, s/p 14Fr pigtail. This has been repositioned as needed. - Currently extubated with adequate O2 saturations on room air PLAN: - Monitor respiratory status. - Will assess tpday for Pigtail removal BRITTANY (acute kidney injury) 12/17/2020 Last Assessment & Plan: Assessment: - Resolving, likely prerenal versus less likely ATN given speed of improvement - Solute clearance appropriate - UOP good volume - New almanza inserted 12/17 PLAN: - Continue resuscitation - Trend CMP Delirium 12/16/2020 12/22/2020 Last Assessment & Plan: Delirium likely 2/2 infection. Geriatrics has been following PLAN: -- continue oxycodone 2.5-5mg every 4 hours as needed for pain (NGT) -- limit narcotic -- treat active infection/supportive care Hypomagnesemia 12/16/2020 12/17/2020 Last Assessment & Plan: Assessment: Hypomagnesemia PLAN: -Magnesium sulfate 2 gm IV x 1. -Monitor: signs, symptoms, disease progression, disease regression. -Evaluate: test results, medication effectiveness, response to treatment. Hypophosphataemia 12/16/2020 12/17/2020 Last Assessment & Plan: Assessment: Hypophosphatemia PLAN: -Sodium phosphate 30 mmol IV x 1. -Monitor: signs, symptoms, disease progression, disease regression. -Evaluate: test results, medication effectiveness, response to treatment. 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 Prostatocystitis 03/24/2009 08/13/2013 Duodenitis without mention of hemorrhage 12/26/2008 09/05/2014 Acute gastritis without mention of hemorrhage 12/27/19 09 09/05/2014 Complete rupture of rotator cuff 11/30/2002 09/05/2014 documented as of this encounter (statuses as of 11/26/2023) [facility] History of Past illness Narrative* Problem Noted Date Diagnosed Date Resolved Date Chronic neck pain 04/12/2023 07/18/2023 Moderate protein-calorie malnutrition 08/26/2022 10/04/2022 Esophageal diverticulum 06/24/202205/2023 Overview: S/p removal 08/2022 Sepsis due to Escherichia coli (E. coli) 12/17/2020 12/17/2020 Last Assessment & Plan: Assessment: 12/17 patient is tachycardic, hypotensive, lactate elevated, given some pressors and fluid by Amet, Blood culture pending. 12/16 UA and Ucx grow GNB. Started on zosyn. PLAN: - Zosyn - Follow up culture - Keep Map >65, pressors as needed, currently on Levo Hemodynamic instability 12/17/202012/2020 Last Assessment & Plan: Assessment: Likely urosepsis, on levo gtt PLAN: Keep Map >65, pressors as needed, currently on Levo Sepsis due to Gram-negative organism with septic shock 12/17/2020 12/22/2020 Last Assessment & Plan: Assessment: - Proteus identified in blood and urine, bourgeois-sensitive - Showed great improvement over the last 2 days - Now off pressors and extubated. PLAN: - Amikacin re-dosed 12/19. Continue zosyn - CT chest/abdomen/pelvis to assess for potential additional sources of infection was unremarkable. - Follow up C/S - Stress dose steroids Acute postoperative respiratory insufficiency 12/18/1912/22/2020 Last Assessment & Plan: Assessment: - PTX on 12/18 CXR, s/p 14Fr pigtail. This has been repositioned as needed. - Currently extubated with adequate O2 saturations on room air PLAN: - Monitor respiratory status. - Will assess tpday for Pigtail removal BRITTANY (acute kidney injury) 12/17/2020 Last Assessment & Plan: Assessment: - Resolving, likely prerenal versus less likely ATN given speed of improvement - Solute clearance appropriate - UOP good volume - New almanza inserted 12/17 PLAN: - Continue resuscitation - Trend CMP Delirium 12/16/2020 12/22/2020 Last Assessment & Plan: Delirium likely 2/2 infection. Geriatrics has been following PLAN: -- continue oxycodone 2.5-5mg every 4 hours as needed for pain (NGT) -- limit narcotic -- treat active infection/supportive care Hypomagnesemia 12/16/2020 12/17/2020 Last Assessment & Plan: Assessment: Hypomagnesemia PLAN: -Magnesium sulfate 2 gm IV x 1. -Monitor: signs, symptoms, disease progression, disease regression. -Evaluate: test results, medication effectiveness, response to treatment. Hypophosphataemia 12/16/2020 12/17/2020 Last Assessment & Plan: Assessment: Hypophosphatemia PLAN: -Sodium phosphate 30 mmol IV x 1. -Monitor: signs, symptoms, disease progression, disease regression. -Evaluate: test results, medication effectiveness, response to treatment. 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 Prostatocystitis 03/24/2009 08/13/2013 Duodenitis without mention of hemorrhage 12/26/2008 09/05/2014 Acute gastritis without mention of hemorrhage 12/27/19 09 09/05/2014 Complete rupture of rotator cuff 11/30/2002 09/05/2014 documented as of this encounter (statuses as of 11/28/2023) [facility] History of Past illness Narrative* Problem Noted Date Diagnosed Date Resolved Date Chronic neck pain 04/12/2023 07/18/2023 Moderate protein-calorie malnutrition 08/26/2022 10/04/2022 Esophageal diverticulum 06/24/202205/2023 Overview: S/p removal 08/2022 Sepsis due to Escherichia coli (E. coli) 12/17/2020 12/17/2020 Last Assessment & Plan: Assessment: 12/17 patient is tachycardic, hypotensive, lactate elevated, given some pressors and fluid by Amet, Blood culture pending. 12/16 UA and Ucx grow GNB. Started on zosyn. PLAN: - Zosyn - Follow up culture - Keep Map >65, pressors as needed, currently on Levo Hemodynamic instability 12/17/202012/2020 Last Assessment & Plan: Assessment: Likely urosepsis, on levo gtt PLAN: Keep Map >65, pressors as needed, currently on Levo Sepsis due to Gram-negative organism with septic shock 12/17/2020 12/22/2020 Last Assessment & Plan: Assessment: - Proteus identified in blood and urine, bourgeois-sensitive - Showed great improvement over the last 2 days - Now off pressors and extubated. PLAN: - Amikacin re-dosed 12/19. Continue zosyn - CT chest/abdomen/pelvis to assess for potential additional sources of infection was unremarkable. - Follow up C/S - Stress dose steroids Acute postoperative respiratory insufficiency 12/18/1912/22/2020 Last Assessment & Plan: Assessment: - PTX on 12/18 CXR, s/p 14Fr pigtail. This has been repositioned as needed. - Currently extubated with adequate O2 saturations on room air PLAN: - Monitor respiratory status. - Will assess tpday for Pigtail removal BRITTANY (acute kidney injury) 12/17/2020 Last Assessment & Plan: Assessment: - Resolving, likely prerenal versus less likely ATN given speed of improvement - Solute clearance appropriate - UOP good volume - New almanza inserted 12/17 PLAN: - Continue resuscitation - Trend CMP Delirium 12/16/2020 12/22/2020 Last Assessment & Plan: Delirium likely 2/2 infection. Geriatrics has been following PLAN: -- continue oxycodone 2.5-5mg every 4 hours as needed for pain (NGT) -- limit narcotic -- treat active infection/supportive care Hypomagnesemia 12/16/2020 12/17/2020 Last Assessment & Plan: Assessment: Hypomagnesemia PLAN: -Magnesium sulfate 2 gm IV x 1. -Monitor: signs, symptoms, disease progression, disease regression. -Evaluate: test results, medication effectiveness, response to treatment. Hypophosphataemia 12/16/2020 12/17/2020 Last Assessment & Plan: Assessment: Hypophosphatemia PLAN: -Sodium phosphate 30 mmol IV x 1. -Monitor: signs, symptoms, disease progression, disease regression. -Evaluate: test results, medication effectiveness, response to treatment. 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 Prostatocystitis 03/24/2009 08/13/2013 Duodenitis without mention of hemorrhage 12/26/2008 09/05/2014 Acute gastritis without mention of hemorrhage 12/27/19 09 09/05/2014 Complete rupture of rotator cuff 11/30/2002 09/05/2014 documented as of this encounter (statuses as of 11/28/2023) [facility]-18-2023 History of Past illness Narrative* Problem Noted Date Diagnosed Date Resolved Date Chronic neck pain 04/12/2023 07/18/2023 Moderate protein-calorie malnutrition 08/26/2022 10/04/2022 Esophageal diverticulum 06/24/2022/0 05/2023 Overview: S/p removal 08/2022 Sepsis due to Escherichia coli (E. coli) 12/17/2020 12/17/2020 Last Assessment & Plan: Assessment: 12/17 patient is tachycardic, hypotensive, lactate elevated, given some pressors and fluid by Amet, Blood culture pending. 12/16 UA and Ucx grow GNB. Started on zosyn. PLAN: - Zosyn - Follow up culture - Keep Map >65, pressors as needed, currently on Levo Hemodynamic instability 12/17/2020 06/0 12/2020 Last Assessment & Plan: Assessment: Likely urosepsis, on levo gtt PLAN: Keep Map >65, pressors as needed, currently on Levo Sepsis due to Gram-negative organism with septic shock 12/17/2020 12/22/2020 Last Assessment & Plan: Assessment: - Proteus identified in blood and urine, bourgeois-sensitive - Showed great improvement over the last 2 days - Now off pressors and extubated. PLAN: - Amikacin re-dosed 12/19. Continue zosyn - CT chest/abdomen/pelvis to assess for potential additional sources of infection was unremarkable. - Follow up C/S - Stress dose steroids Acute postoperative respiratory insufficiency 12/18/1912/22/2020 Last Assessment & Plan: Assessment: - PTX on 12/18 CXR, s/p 14Fr pigtail. This has been repositioned as needed. - Currently extubated with adequate O2 saturations on room air PLAN: - Monitor respiratory status. - Will assess tpday for Pigtail removal BRITTANY (acute kidney injury) 12/17/2020 Last Assessment & Plan: Assessment: - Resolving, likely prerenal versus less likely ATN given speed of improvement - Solute clearance appropriate - UOP good volume - New almanza inserted 12/17 PLAN: - Continue resuscitation - Trend CMP Delirium 12/16/2020 12/22/2020 Last Assessment & Plan: Delirium likely 2/2 infection. Geriatrics has been following PLAN: -- continue oxycodone 2.5-5mg every 4 hours as needed for pain (NGT) -- limit narcotic -- treat active infection/supportive care Hypomagnesemia 12/16/2020 12/17/2020 Last Assessment & Plan: Assessment: Hypomagnesemia PLAN: -Magnesium sulfate 2 gm IV x 1. -Monitor: signs, symptoms, disease progression, disease regression. -Evaluate: test results, medication effectiveness, response to treatment. Hypophosphataemia 12/16/2020 12/17/2020 Last Assessment & Plan: Assessment: Hypophosphatemia PLAN: -Sodium phosphate 30 mmol IV x 1. -Monitor: signs, symptoms, disease progression, disease regression. -Evaluate: test results, medication effectiveness, response to treatment. 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 Prostatocystitis 03/24/2009 08/13/2013 Duodenitis without mention of hemorrhage 12/26/2008 09/05/2014 Acute gastritis without mention of hemorrhage 12/27/19 09 09/05/2014 Complete rupture of rotator cuff 11/30/2002 09/05/2014 documented as of this encounter (statuses as of 12/09/2023) [facility] History of Past illness Narrative* Problem Noted Date Diagnosed Date Resolved Date Chronic neck pain 04/12/2023 07/18/2023 Moderate protein-calorie malnutrition 08/26/2022 10/04/2022 Esophageal diverticulum 06/24/2022 01/05/2023 Overview: S/p removal 08/2022 Sepsis due to Escherichia coli (E. coli) 12/17/2020 12/17/2020 Last Assessment & Plan: Assessment: 12/17 patient is tachycardic, hypotensive, lactate elevated, given some pressors and fluid by Amet, Blood culture pending. 12/16 UA and Ucx grow GNB. Started on zosyn. PLAN: - Zosyn - Follow up culture - Keep Map >65, pressors as needed, currently on Levo Hemodynamic instability 12/17/2020 06/0 12/2020 Last Assessment & Plan: Assessment: Likely urosepsis, on levo gtt PLAN: Keep Map >65, pressors as needed, currently on Levo Sepsis due to Gram-negative organism with septic shock 12/17/2020 12/22/2020 Last Assessment & Plan: Assessment: - Proteus identified in blood and urine, bourgeois-sensitive - Showed great improvement over the last 2 days - Now off pressors and extubated. PLAN: - Amikacin re-dosed 12/19. Continue zosyn - CT chest/abdomen/pelvis to assess for potential additional sources of infection was unremarkable. - Follow up C/S - Stress dose steroids Acute postoperative respiratory insufficiency 12/18/1912/22/2020 Last Assessment & Plan: Assessment: - PTX on 12/18 CXR, s/p 14Fr pigtail. This has been repositioned as needed. - Currently extubated with adequate O2 saturations on room air PLAN: - Monitor respiratory status. - Will assess tpday for Pigtail removal BRITTANY (acute kidney injury) 12/17/2020 Last Assessment & Plan: Assessment: - Resolving, likely prerenal versus less likely ATN given speed of improvement - Solute clearance appropriate - UOP good volume - New almanza inserted 12/17 PLAN: - Continue resuscitation - Trend CMP Delirium 12/16/2020 12/22/2020 Last Assessment & Plan: Delirium likely 2/2 infection. Geriatrics has been following PLAN: -- continue oxycodone 2.5-5mg every 4 hours as needed for pain (NGT) -- limit narcotic -- treat active infection/supportive care Hypomagnesemia 12/16/2020 12/17/2020 Last Assessment & Plan: Assessment: Hypomagnesemia PLAN: -Magnesium sulfate 2 gm IV x 1. -Monitor: signs, symptoms, disease progression, disease regression. -Evaluate: test results, medication effectiveness, response to treatment. Hypophosphataemia 12/16/2020 12/17/2020 Last Assessment & Plan: Assessment: Hypophosphatemia PLAN: -Sodium phosphate 30 mmol IV x 1. -Monitor: signs, symptoms, disease progression, disease regression. -Evaluate: test results, medication effectiveness, response to treatment. 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 Prostatocystitis 03/24/2009 08/13/2013 Duodenitis without mention of hemorrhage 12/26/2008 09/05/2014 Acute gastritis without mention of hemorrhage 12/27/19 09 09/05/2014 Complete rupture of rotator cuff 11/30/2002 09/05/2014 documented as of this encounter (statuses as of 12/27/2023) [facility] History of Past illness Narrative* Problem Noted Date Diagnosed Date Resolved Date Chronic neck pain 04/12/2023 07/18/2023 Moderate protein-calorie malnutrition 08/26/2022 10/04/2022 Esophageal diverticulum 06/24/202205/2023 Overview: S/p removal 08/2022 Sepsis due to Escherichia coli (E. coli) 12/17/2020 12/17/2020 Last Assessment & Plan: Assessment: 12/17 patient is tachycardic, hypotensive, lactate elevated, given some pressors and fluid by Amet, Blood culture pending. 12/16 UA and Ucx grow GNB. Started on zosyn. PLAN: - Zosyn - Follow up culture - Keep Map >65, pressors as needed, currently on Levo Hemodynamic instability 12/17/2020 06/0 12/2020 Last Assessment & Plan: Assessment: Likely urosepsis, on levo gtt PLAN: Keep Map >65, pressors as needed, currently on Levo Sepsis due to Gram-negative organism with septic shock 12/17/2020 12/22/2020 Last Assessment & Plan: Assessment: - Proteus identified in blood and urine, bourgeois-sensitive - Showed great improvement over the last 2 days - Now off pressors and extubated. PLAN: - Amikacin re-dosed 12/19. Continue zosyn - CT chest/abdomen/pelvis to assess for potential additional sources of infection was unremarkable. - Follow up C/S - Stress dose steroids Acute postoperative respiratory insufficiency 12/18/1912/22/2020 Last Assessment & Plan: Assessment: - PTX on 12/18 CXR, s/p 14Fr pigtail. This has been repositioned as needed. - Currently extubated with adequate O2 saturations on room air PLAN: - Monitor respiratory status. - Will assess tpday for Pigtail removal BRITTANY (acute kidney injury) 12/17/2020 Last Assessment & Plan: Assessment: - Resolving, likely prerenal versus less likely ATN given speed of improvement - Solute clearance appropriate - UOP good volume - New almanza inserted 12/17 PLAN: - Continue resuscitation - Trend CMP Delirium 12/16/2020 12/22/2020 Last Assessment & Plan: Delirium likely 2/2 infection. Geriatrics has been following PLAN: -- continue oxycodone 2.5-5mg every 4 hours as needed for pain (NGT) -- limit narcotic -- treat active infection/supportive care Hypomagnesemia 12/16/2020 12/17/2020 Last Assessment & Plan: Assessment: Hypomagnesemia PLAN: -Magnesium sulfate 2 gm IV x 1. -Monitor: signs, symptoms, disease progression, disease regression. -Evaluate: test results, medication effectiveness, response to treatment. Hypophosphataemia 12/16/2020 12/17/2020 Last Assessment & Plan: Assessment: Hypophosphatemia PLAN: -Sodium phosphate 30 mmol IV x 1. -Monitor: signs, symptoms, disease progression, disease regression. -Evaluate: test results, medication effectiveness, response to treatment. 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 Prostatocystitis 03/24/2009 08/13/2013 Duodenitis without mention of hemorrhage 12/26/2008 09/05/2014 Acute gastritis without mention of hemorrhage 12/27/19 09 09/05/2014 Complete rupture of rotator cuff 11/30/2002 09/05/2014 documented as of this encounter (statuses as of 01/04/2024) [facility] History of Past illness Narrative* Problem Noted Date Diagnosed Date Resolved Date Chronic neck pain 04/12/2023 07/18/2023 Moderate protein-calorie malnutrition 08/26/2022 10/04/2022 Esophageal diverticulum 06/24/202205/2023 Overview: S/p removal 08/2022 Sepsis due to Escherichia coli (E. coli) 12/17/2020 12/17/2020 Last Assessment & Plan: Assessment: 12/17 patient is tachycardic, hypotensive, lactate elevated, given some pressors and fluid by Amet, Blood culture pending. 12/16 UA and Ucx grow GNB. Started on zosyn. PLAN: - Zosyn - Follow up culture - Keep Map >65, pressors as needed, currently on Levo Hemodynamic instability 12/17/2020 06/0 12/2020 Last Assessment & Plan: Assessment: Likely urosepsis, on levo gtt PLAN: Keep Map >65, pressors as needed, currently on Levo Sepsis due to Gram-negative organism with septic shock 12/17/2020 12/22/2020 Last Assessment & Plan: Assessment: - Proteus identified in blood and urine, bourgeois-sensitive - Showed great improvement over the last 2 days - Now off pressors and extubated. PLAN: - Amikacin re-dosed 12/19. Continue zosyn - CT chest/abdomen/pelvis to assess for potential additional sources of infection was unremarkable. - Follow up C/S - Stress dose steroids Acute postoperative respiratory insufficiency 12/18/1912/22/2020 Last Assessment & Plan: Assessment: - PTX on 12/18 CXR, s/p 14Fr pigtail. This has been repositioned as needed. - Currently extubated with adequate O2 saturations on room air PLAN: - Monitor respiratory status. - Will assess tpday for Pigtail removal BRITTANY (acute kidney injury) 12/17/2020 Last Assessment & Plan: Assessment: - Resolving, likely prerenal versus less likely ATN given speed of improvement - Solute clearance appropriate - UOP good volume - New almanza inserted 12/17 PLAN: - Continue resuscitation - Trend CMP Delirium 12/16/2020 12/22/2020 Last Assessment & Plan: Delirium likely 2/2 infection. Geriatrics has been following PLAN: -- continue oxycodone 2.5-5mg every 4 hours as needed for pain (NGT) -- limit narcotic -- treat active infection/supportive care Hypomagnesemia 12/16/2020 12/17/2020 Last Assessment & Plan: Assessment: Hypomagnesemia PLAN: -Magnesium sulfate 2 gm IV x 1. -Monitor: signs, symptoms, disease progression, disease regression. -Evaluate: test results, medication effectiveness, response to treatment. Hypophosphataemia 12/16/2020 12/17/2020 Last Assessment & Plan: Assessment: Hypophosphatemia PLAN: -Sodium phosphate 30 mmol IV x 1. -Monitor: signs, symptoms, disease progression, disease regression. -Evaluate: test results, medication effectiveness, response to treatment. 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 Prostatocystitis 03/24/2009 08/13/2013 Duodenitis without mention of hemorrhage 12/26/2008 09/05/2014 Acute gastritis without mention of hemorrhage 12/27/19 09 09/05/2014 Complete rupture of rotator cuff 11/30/2002 09/05/2014 documented as of this encounter (statuses as of 01/06/2024) [facility] History of Past illness Narrative* Problem Noted Date Diagnosed Date Resolved Date Chronic neck pain 04/12/2023 07/18/2023 Moderate protein-calorie malnutrition 08/26/2022 10/04/2022 Esophageal diverticulum 06/24/202205/2023 Overview: S/p removal 08/2022 Sepsis due to Escherichia coli (E. coli) 12/17/2020 12/17/2020 Last Assessment & Plan: Assessment: 12/17 patient is tachycardic, hypotensive, lactate elevated, given some pressors and fluid by Amet, Blood culture pending. 12/16 UA and Ucx grow GNB. Started on zosyn. PLAN: - Zosyn - Follow up culture - Keep Map >65, pressors as needed, currently on Levo Hemodynamic instability 12/17/2020 06/0 12/2020 Last Assessment & Plan: Assessment: Likely urosepsis, on levo gtt PLAN: Keep Map >65, pressors as needed, currently on Levo Sepsis due to Gram-negative organism with septic shock 12/17/2020 12/22/2020 Last Assessment & Plan: Assessment: - Proteus identified in blood and urine, bourgeois-sensitive - Showed great improvement over the last 2 days - Now off pressors and extubated. PLAN: - Amikacin re-dosed 12/19. Continue zosyn - CT chest/abdomen/pelvis to assess for potential additional sources of infection was unremarkable. - Follow up C/S - Stress dose steroids Acute postoperative respiratory insufficiency 12/18/1912/22/2020 Last Assessment & Plan: Assessment: - PTX on 12/18 CXR, s/p 14Fr pigtail. This has been repositioned as needed. - Currently extubated with adequate O2 saturations on room air PLAN: - Monitor respiratory status. - Will assess tpday for Pigtail removal BRITTANY (acute kidney injury) 12/17/2020 Last Assessment & Plan: Assessment: - Resolving, likely prerenal versus less likely ATN given speed of improvement - Solute clearance appropriate - UOP good volume - New almanza inserted 12/17 PLAN: - Continue resuscitation - Trend CMP Delirium 12/16/2020 12/22/2020 Last Assessment & Plan: Delirium likely 2/2 infection. Geriatrics has been following PLAN: -- continue oxycodone 2.5-5mg every 4 hours as needed for pain (NGT) -- limit narcotic -- treat active infection/supportive care Hypomagnesemia 12/16/2020 12/17/2020 Last Assessment & Plan: Assessment: Hypomagnesemia PLAN: -Magnesium sulfate 2 gm IV x 1. -Monitor: signs, symptoms, disease progression, disease regression. -Evaluate: test results, medication effectiveness, response to treatment. Hypophosphataemia 12/16/2020 12/17/2020 Last Assessment & Plan: Assessment: Hypophosphatemia PLAN: -Sodium phosphate 30 mmol IV x 1. -Monitor: signs, symptoms, disease progression, disease regression. -Evaluate: test results, medication effectiveness, response to treatment. 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 Prostatocystitis 03/24/2009 08/13/2013 Duodenitis without mention of hemorrhage 12/26/2008 09/05/2014 Acute gastritis without mention of hemorrhage 12/27/19 09 09/05/2014 Complete rupture of rotator cuff 11/30/2002 09/05/2014 documented as of this encounter (statuses as of 01/06/2024) [facility] History of Past illness Narrative* Problem Noted Date Diagnosed Date Resolved Date Chronic neck pain 04/12/2023 07/18/2023 Moderate protein-calorie malnutrition 08/26/2022 10/04/2022 Esophageal diverticulum 06/24/202205/2023 Overview: S/p removal 08/2022 Sepsis due to Escherichia coli (E. coli) 12/17/2020 12/17/2020 Last Assessment & Plan: Assessment: 12/17 patient is tachycardic, hypotensive, lactate elevated, given some pressors and fluid by Amet, Blood culture pending. 12/16 UA and Ucx grow GNB. Started on zosyn. PLAN: - Zosyn - Follow up culture - Keep Map >65, pressors as needed, currently on Levo Hemodynamic instability 12/17/2020 06/0 12/2020 Last Assessment & Plan: Assessment: Likely urosepsis, on levo gtt PLAN: Keep Map >65, pressors as needed, currently on Levo Sepsis due to Gram-negative organism with septic shock 12/17/2020 12/22/2020 Last Assessment & Plan: Assessment: - Proteus identified in blood and urine, bourgeois-sensitive - Showed great improvement over the last 2 days - Now off pressors and extubated. PLAN: - Amikacin re-dosed 12/19. Continue zosyn - CT chest/abdomen/pelvis to assess for potential additional sources of infection was unremarkable. - Follow up C/S - Stress dose steroids Acute postoperative respiratory insufficiency 12/18/1912/22/2020 Last Assessment & Plan: Assessment: - PTX on 12/18 CXR, s/p 14Fr pigtail. This has been repositioned as needed. - Currently extubated with adequate O2 saturations on room air PLAN: - Monitor respiratory status. - Will assess tpday for Pigtail removal BRITTANY (acute kidney injury) 12/17/2020 Last Assessment & Plan: Assessment: - Resolving, likely prerenal versus less likely ATN given speed of improvement - Solute clearance appropriate - UOP good volume - New almanza inserted 12/17 PLAN: - Continue resuscitation - Trend CMP Delirium 12/16/2020 12/22/2020 Last Assessment & Plan: Delirium likely 2/2 infection. Geriatrics has been following PLAN: -- continue oxycodone 2.5-5mg every 4 hours as needed for pain (NGT) -- limit narcotic -- treat active infection/supportive care Hypomagnesemia 12/16/2020 12/17/2020 Last Assessment & Plan: Assessment: Hypomagnesemia PLAN: -Magnesium sulfate 2 gm IV x 1. -Monitor: signs, symptoms, disease progression, disease regression. -Evaluate: test results, medication effectiveness, response to treatment. Hypophosphataemia 12/16/2020 12/17/2020 Last Assessment & Plan: Assessment: Hypophosphatemia PLAN: -Sodium phosphate 30 mmol IV x 1. -Monitor: signs, symptoms, disease progression, disease regression. -Evaluate: test results, medication effectiveness, response to treatment. 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 Ronan Jean LPN * Telephone Encounter - Cherelle Benavides PA-C - 04/07/2023 11:01 AM EDT Let patient know all his labs are normal/stable. Cherelle Benavides PA-C [facility] History of Present illness Narrative* Cherelle Benavides PA-C - 04/05/2023 12:41 PM EDT Chief Complaint Patient presents with: Follow Up: 6 month HPI Javier Bond is a 82 year old male who presents here today for Chronic Medical Conditions.. Patient with hx of HTN, GERD, BPH, chronic back pain, Depression, unstable gait, osteoporosis, and those as below. Overall doing okay. Has chronic neck and upper back pain. Is concerned with posture. Hasn't done Physical Therapy in a while. Was told in past by pain management that there wasn't management options for his neck pain Past medical history, appointments, medications, allergies reviewed. 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/24/2022 S/p removal 08/2022 Essential hypertension, benign Family history of malignant neoplasm of gastrointestinal tract GERD (gastroesophageal reflux disease) 03/25/2009 Hiatal hernia 06/09/2022 History of compression fracture of spine 11/05/2019 Hypercalciuria, idiopathic 02/11/2020 Hypertrophy of prostate without urinary obstruction and other lower urinary tract symptoms (LUTS) Ilioinguinal neuralgia of left side 09/27/2019 Internal hemorrhoids without mention of complication Living will in place 10/04/2022 DPA: Peter Lumbar degenerative disc disease 09/14/2012 Lumbar radiculopathy 07/03/2020 Medicare annual wellness visit, subsequent 09/10/2021 Medicare Part B: Not able to find Last done: 09/10/2021 Nephrolithiasis 07/04/2007 Osteoporosis 01/28/2020 Other specified anemias 03/16/2022 Acute blood loss 11/2020 (post surgery) Peripheral edema 05/21/2022 Primary osteoarthritis of both first carpometacarpal joints 05/04/2018 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 09/09/2015 Rosacea 09/09/2015 S/P lumbar spinal fusion 12/15/2020 Sepsis due to Gram-negative organism with septic shock (HCC) 12/17/2020 Proteus mirabilis UTI Situational anxiety 06/27/2019 Situational depression 02/27/2021 Spondylosis of lumbar region without myelopathy or radiculopathy 03/10/2018 Thyroid nodule 12/03/[address] Zacarias Unstable gait 05/21/2021 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 05/11/2021 Previous Surgical History PAST SURGICAL HISTORY Procedure Laterality Date ARTHRP INTERPOS INTERCARPAL/METACARPAL JOINTS Left 05/24/2018 Left thumb CMC arthroplasty with LRTI and MCP pinning of left thumb COLONOSCOPY FLX DX W/COLLJ SPEC WHEN PFRMD 07/17/08, 2012 COLONOSCOPY FLX DX W/COLLJ SPEC WHEN PFRMD 03/28/2019 Ariel Alvarado CYSTO.PANENDO 02/20/2021 stent removal EGD TRANSORAL BIOPSY SINGLE/MULTIPLE 12/26/2008 ESOPHAGOGASTRODUODENOSCOPY TRANSORAL DIAGNOSTIC 03/18/2020 EGD EXCISION OF CYST squamous cell on head LAP, REVISION DEMETRIO FUNDOPLASTY 03/11/2009 hiatal hernia LAPAROSCOPY SURG CHOLECYSTECTOMY 03/11/2009 LITHOTRIPSY XTRCORP SHOCK WAVE 1982,12/07/2006, 2011 NEPHROLITHOTOMY REMOVAL STAGE 1 Right 11/28/2006, 2011 (R) ureteroscopic OPEN REPAIR OF ROTATOR CUFF ACUTE Right 12/06/2002 OPEN REPAIR OF ROTATOR CUFF ACUTE Left 08/26/2004 PAST SURGICAL HISTORY OF 08/2022 re-moval of esophageal diverticulum. PERIPHERAL NERVE BLOCK (MOD 59) Bilateral 11/01/2016, 03/28/2018 bilateral lumbar facet medial branch nerve block (l4-5, L5-S1) REMOVAL OF HEMORRHOID CLOT 06/2017 SPINAL FUSION,ANT,EA ADNL LEVEL 2001 TONSILLECTOMY HX Childhood XCAPSL CTRC RMVL INSJ IO LENS PROSTH W/O ECP Bilateral 08/25/2016 Family History FAMILY HISTORY Problem Relation Age of Onset Cancer Mother lung Cancer Father colon Cancer Brother lymphoma Patient Allergies ALLERGIES Allergen Reactions Contrast Dye Hives Finacea [Azelaic Ac* Rash Bactrim [Sulfametho* Unknown Bextra [Valdecoxib] Unknown Cardura [Doxazosin * Unknown Ciprofloxacin Unknown Cytotec [Misoprosto* Unknown Fosamax [Alendronat* Vomiting heartburn, vomiting Gabapentin Mental Status Change Keflex [Cephalexin] Rash Ketoconazole Unknown Levofloxacin Other: See Comments Pseudomonas Mobic [Meloxicam] Unknown Nitrofurantoin Other: See Comments Per , "he didn't feel well" - unsure of reaction Nsaids (Non-Steroid* Unknown GI UPSET Relafen [Nabumetone] Unknown Terbinafine GI Upset Current Medications Current Outpatient Medications on File Prior to Visit Medication Sig quinapril (ACCUPRIL) 5 mg tablet Take 5 mg by mouth daily at bedtime. Methenamine Hippurate (HIPREX) 1 gram tablet atorvastatin (LIPITOR) 10 mg tablet Take 1 tablet by mouth daily at bedtime. For cholesterol. fexofenadine (HESHAM ALLERGY) 180 mg tablet Take one tablet one to two times a day Ascorbic Acid (VITAMIN C) 1,000 mg tablet Take 1 tablet by mouth twice daily. hydroCHLOROthiazide (HYDRODIURIL, ESIDRIX) 12.5 mg tablet Take 1 tablet by mouth once daily. d-mannose powd Take by mouth once daily. furosemide (LASIX) 20 mg tablet Take 1 tablet by mouth once daily. traZODone (DESYREL) 50 mg tablet Take 0.5 tablets by mouth daily at bedtime. (Patient taking differently: Take 50 mg by mouth daily at bedtime.) triamcinolone acetonide (KENALOG) 0.1 % cream Apply 1 application to affected area as directed. Docusate Sodium 250 mg capsule Take 100 mg by mouth twice daily. pantoprazole DR (PROTONIX) 40 mg tablet Take 40 mg by mouth once daily. doxycycline 20 mg tablet Take 20 mg by mouth twice daily. multivit-min/iron/folic acid/K (ADULTS MULTIVITAMIN ORAL) Take 1 tablet by mouth once daily. MEDICAL SUPPLY KAFO for right lower extremity. acetaminophen (TYLENOL) 500 mg tablet Take 2 tablets by mouth every 8 hours as needed for Pain or Fever. aspirin 81 mg chewable tablet Take 1 tablet by mouth once daily. Current Facility-Administered Medications on File Prior to Visit Medication perflutren lipid microspheres 1.3 mL in NaCl (PF) 0.9% 10 mL injection (DEFINITY) sodium chloride 0.9 % (flush) 10 mL (BD POSIFLUSH) Social History Social History Tobacco Use Smoking status: Former Types: Cigarettes Quit date: 06/24/1963 Years since quittin.8 Smokeless tobacco: Never Tobacco comments: quit in his 20's - smoked socially while in college Vaping Use Vaping Use: Never used Substance Use Topics Alcohol use: Yes Comment: 1-2 drinks in A MONTH Drug use: No Review of Symptoms REVIEW OF SYSTEMS GENERAL: No weight loss, malaise or fevers NECK: Negative for lumps, goiter, pain and significant neck swelling RESPIRATORY: Negative for cough, hemoptysis, wheezing, COPD, dyspnea or shortness of breath CARDIOVASCULAR: Negative for chest pain, leg swelling, hypertension, CHF or palpitations NEURO: No history of headaches, syncope, paralysis, seizures or tremors EXAM: BP 118/64 (BP Site: Left Arm, BP Position: Sitting, BP Cuff Size: Regular Adult) Pulse 82 Resp 16 Wt 76.1 kg (167 lb 12.8 oz) SpO2 99% BMI 24.08 kg/m General Appearance: Well appearing, alert, in no acute distress, well-hydrated, well nourished.. Neck: Supple, no adenopathy; thyroid symmetric, normal size, no bruits. Lungs: Lungs clear to auscultation. No wheezing, rhonchi, rales.. Heart: RRR without murmur, gallop, or rubs. No ectopy. Extremities: No deformities, edema, skin discoloration, clubbing or cyanosis. Good capillary refill. . Peripheral Pulses: Normal. Health Maintenance List INFLUENZA(1) due on 05/27/2023 ANNUAL PCP TEAM CHRONIC DISEASE VISIT due on 10/12/2023 BP CONTROLLED (<130/80) due on 03/18/2024 DIABETES SCREEN due on 10/12/2025 DTAP,TDAP,TD(4 - Td or Tdap) due on 03/13/2028 ADVANCE DIRECTIVE DISCUSSION Completed SHINGRIX VACCINE Completed COVID-19 VACCINE Completed PNEUMOCOCCAL: 65+ Completed COLORECTAL CANCER SCREENING Discontinued Data reviewed N/a ASSESSMENT/PLAN: 1. Essential hypertension, benign - ICD9: 401.1, ICD10: I10 (primary diagnosis) - Controlled - Continue current medications - Recommend home blood pressure monitoring, to bring results to next visit - Encouraged sodium restriction, DASH or Mediterranean diet - Recommend regular aerobic exercise - BASIC METABOLIC PNL - CBC + DIFF 2. Elevated blood sugar - ICD9: 790.29, ICD10: R73.9 - HGB A1C 3. 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 loss - ICD9: 280.0, ICD10: D50.0 Await labs 4. Chronic neck pain - ICD9: 723.1, 338.29, ICD10: M54.2, G89.29 Start Physical Therapy and will get another pain management opinion. - CONSULT TO PHYSICAL THERAPY - CONSULT TO PAIN MGT 5. Lumbar back pain - ICD9: 724.2, ICD10: M54.50 - CONSULT TO PHYSICAL THERAPY 6. Encounter for lipid screening for cardiovascular disease - ICD9: V77.91, V81.2, ICD10: Z13.220, Z13.6 - LIPID PANEL, NONFASTING 7. Unstable gait - ICD9: 781.2, ICD10: R26.81 - CONSULT TO PHYSICAL THERAPY 8. Chronic constipation - ICD9: 564.00, ICD10: K59.09 stable 9. Gastroesophageal reflux disease, unspecified whether esophagitis present - ICD9: 530.81, ICD10: K21.9 stable 10. Anemia due to other cause, not classified - ICD9: 285.8, ICD10: D64.89 11. Fatigue, unspecified type - ICD9: 780.79, ICD10: R53.83 Check: - TSH BLD 12. Need for vaccination - ICD9: V05.9, ICD10: Z23 - PNEUMOCOCCAL VACCINE (PREVNAR 20) Cherelle Benavides PA-C documented in this encounterCh[facility]06-[facility] History of Present illness Narrative* Javier Keys MD - 03/18/2023 2:59 PM EDT Images from the original note were not included. 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 The initial SPEP 12/02/2022 identified an atypical region of restricted mobility which may represent an unusual presentation of polyclonal immunoglobulins, but cannot rule out the presence of an low level M protein. The M protein concentration was 0.00. The subsequent immunofixation reported a poorly defined region of restricted mobility in the lambda marisa. Pattern is less well-defined or fainterthan typically seen in monoclonal gammopathy. He saw Dr. De Los Santos who recommended 3 months follow-up with repeat labs. 3 months ago he also had received Venofer infusions 200 mg x 5 for his iron deficiency. 03/09/2023, labs showed kappa free light chain 43.4, lambda free light chain 21.7, K/L ratio 2.0. Hb12.7, WBC 3.58. Clinically he is doing well without new complaints. REVIEW OF SYSTEMS: Review of Systems Constitutional: Negative for fatigue and unexpected weight change. HENT: Negative for lump/mass, sore throat and trouble swallowing. Respiratory: Negative for cough, hemoptysis and shortness of breath. Cardiovascular: Positive for leg swelling. Negative for chest pain. Gastrointestinal: Negative for abdominal pain, blood in stool and constipation. Genitourinary: Negative for dysuria, frequency and hematuria. Musculoskeletal: Positive for back pain. Neurological: Negative for headaches, light-headedness and numbness. Hematological: Negative for adenopathy. Does not bruise/bleed easily. Psychiatric/Behavioral: Negative for confusion and decreased concentration. The patient is not nervous/anxious. PHYSICAL EXAM: BP 123/78 Pulse 85 Temp 37.2 C (99 F) Wt 76.7 kg (169 lb) SpO2 99% BMI 24.25 kg/m2 Body mass index is 24.25 kg/m . Estimated body surface area is 1.95 meters squared as calculated from the following: Height as of 01/14/23: 177.8 cm (5' 10"). Weight as of this encounter: 76.7 kg (169 lb). ECO- Restricted in physically strenuous activity. Carries out light duty. Physical Exam Vitals reviewed. Constitutional: Appearance: Normal appearance. HENT: Head: Normocephalic and atraumatic. Nose: Nose normal. Eyes: Conjunctiva/sclera: Conjunctivae normal. Cardiovascular: Rate and Rhythm: Normal rate and regular rhythm. Pulmonary: Effort: Pulmonary effort is normal. No respiratory distress. Abdominal: General: There is no distension. Palpations: Abdomen is soft. Tenderness: There is no abdominal tenderness. Musculoskeletal: Cervical back: Normal range of motion and neck supple. Right lower leg: Edema present. Left lower leg: Edema present. Skin: Coloration: Skin is not jaundiced. Findings: No bruising or rash. Neurological: General: No focal deficit present. Mental Status: He is alert and oriented to person, place, and time. Psychiatric: Mood and Affect: Mood normal. Behavior: Behavior normal. LABS: Latest Reference Range & Units 03/09/23 12:14 WBC 3.70 - 11.00 k/uL 3.58 (L) RBC 4.20 - 6.00 m/uL 4.15 (L) Hemoglobin 13.0 - 17.0 g/dL 12.7 (L) Hematocrit 39.0 - 51.0 % 39.8 Platelet Count 150 - 400 k/uL 175 Latest Reference Range & Units 03/09/23 12:14 [place] Free, Serum 3.3 - 19.4 mg/L 43.4 (H) Lambda Free, Serum 5.7 - 26.3 mg/L 21.7 K/L Ratio, Serum 0.26 - 1.65 2.00 (H) IMPRESSION: Javier Bond is a 82 year old male with questionable monoclonal gammopathy. Repeat labs last week showed slightly elevated K/L ratio, but no immunoglobulins or NGUYEN. I am not convinced that he hasplasma cell dyscrasia. Chronic mild anemia, stable H/H. PLAN: I will schedule him to come back in 6 months with repeat CBC, CMP, iron study, SPEP, NGUYEN, immunoglobulins, and serum free light chains. Javier Keys MD cc: Francisco Bahena MD documented in this encounterChillic[facility]06-14-2023 History of Present illness Narrative* Antwon Jefferson, RT(R) - 03/09/2023 12:20 PM EDT Radiology Service Progress Note PATIENT NAME: Javier Bond DATE OF SERVICE: March 09, 2023 TIME: 12:43 PM PATIENT IDENTITY VERIFICATION COMPLETED USING TWO (2) IDENTIFIERS: Name and Date of confirmedby patient verbally. FALL SCREENING: Has the patient had 2 falls in the last year or 1 fall with injury or currently using an Ambulatory Assistive Device (Walker, Cane, Wheelchair, Crutches, etc.)? Yes, Patient High Riskfor Falls What interventions were put in place to prevent falls during this visit? Increased Observations by Caregivers PATIENT GENDER DATA: Male PATIENT RELEVANT IMPLANT DATA REVIEWED: Not Applicable RADIOLOGY DEPARTMENT: General X-ray: Exam(s) Completed: Spine X-Ray(s): Scoliosis Series PERIPHERAL IV DATA: Not applicable SIGNED BY: RT Ricardo(R) March 09, 2023 12:43 PM documented in this encounterChillicothe Hospital05-04-2023 Miscellaneous Notes* Telephone Encounter - Yolanda Cabral LPN - 01/27/2023 2:57 PM EDT Pt notified records show valid rx at the pharmacy. Yolanda Cabral LPN documented in this encounterChillicothe [facility]05-03-2023 Nurse Note* Elsy Ramos RN - 01/26/2023 3:25 PM EDT Images from the original note were not included. Per Dr. Coles, MD Elsy Bunch, RN ThanksElsy. He has follow up with me 02/17. It can take some time for symptoms to improve, like 2-3 months Called patient and provided message. Patient stated understanding. Reminded patient of future appointment with Dr. Coles. No further questions or concerns at this time. * Elsy Ramos RN - 01/26/2023 2:39 PM EDT Patient had nurse visit for PVR. TURP done 01/14/23. Almanza catheter removed 01/21/23. Patient arrived to appointment reporting having to urinate every hour with urgency. He expressed frustration stating his symptoms have not improved with the procedure. He is not experiencing any pain, just feels uncomfortable. Urine is red-tinged still. He is trying to drink more fluids. PVR 30 ml Urine specimen collected in case needs to be sent for testing. Encounter routed to Dr. Dayna andino. documented in this encounterChillic[facility] Hospital04-28-2023 Miscellaneous Notes* Telephone Encounter - Eve Marcos RN - 01/21/2023 12:55 PM EDT spoke with the patient's I believe the brief was a depends. patient also scheduled for a nurse visit next Wed for a PVR Wed works best for the patient's . * Telephone Encounter - Stephany Phillip Pss - 01/21/2023 11:55 AM EDT Patients called and asked what kind of brief she gave her to wear so that she can purchase them. Please advice documented in this encounterChillicothe [facility]04-28-2023 History of Present illness Narrative* Yun Coles MD - 01/21/2023 9:19 AM EDT Patient presented for void trial s/p TURP on 01/19/23 and was noted to have ongoing hematuria, alcantara red. Nurses flushed with >2L with no return of clot. Catheter was left indwelling. He presents today for follow up and urine is clear yellow. He has ongoing leakage around the catheter - has to wear a pullup. NAD, well appearing Almanza catheter draining clear urine. Pad around the penis with pink staining. Upon instilling fluid in the catheter by gravity, pt has a bladder spasms and urine is expelled through and around the catheter. Almanza catheter was then removed. He voided twice without difficulty, urine clear on second void UA +blood, LE 82 yo M with BPH with ALONSO and recurrent UTIs s/p TURP 01/14/23, passed TO today Send urine culture Nurse visit PVR next week Follow up with me scheduled 02/17 All questions and concerns were addressed. Yun Coles MD documented in this encounterChillic[facility]04-26-2023 Nurse Note* Elsy Ramos RN - 01/19/2023 2:57 PM EDT Patient arrived at office for trial of void nurse visit. Almanza catheter with dark red urine in tubing and bag. Patient reports discomfort at meatus with leakage. Contacted Dr. Coles. Received verbal orders to manually irrigate almanza catheter. Irrigated with 2500 ml saline. No clots observed. Output lightened to dark pink/light red. Provided update to Dr. Coles. Verbal order to keep almanza catheter in and schedule patient to see her in office Tuesday at 0900. Patient provided with updates and education. Patient and spouse stated understanding. No further questions or concerns at this time. Elsy Ramos RN documented in this encounterChillic[facility]04-24-2023 Miscellaneous Notes* Telephone Encounter - Francisco Bahena MD - 01/17/2023 9:31 AM EDT The following approved medication requests have been transmitted electronically. Requested Prescriptions Signed Prescriptions Disp Refills lisinopril (ZESTRIL) 5 mg tablet 90 tablet 1 Sig: Take 1 tablet by mouth once daily. Authorizing Provider: FRANCISCO BAHENA MD * Telephone Encounter - Any Coello LPN - 01/17/2023 9:13 AM EDT Jacqueline from [facility] received a refill for pt for quinapril, hospital is unable to get medication as it is on back order. Do you want to change med? Any Coello LPN documented in this encounterChillic[facility]04-24-2023 Miscellaneous Notes* Telephone Encounter - Francisco Bahena MD - 01/17/2023 8:36 AM EDT The following approved medication requests have been transmitted electronically. Requested Prescriptions Signed Prescriptions Disp Refills quinapril (ACCUPRIL) 5 mg tablet 90 tablet 1 Sig: Take 1 tablet by mouth once daily. Authorizing Provider: FRANCISCO BAHENA atorvastatin (LIPITOR) 10 mg tablet 90 tablet 1 Sig: Take 1 tablet by mouth daily at bedtime. For cholesterol. Authorizing Provider: FRANCISCO BAHENA MD * Telephone Encounter - Ronan Jean LPN - 01/17/2023 7:40 AM EDT Last refill Lipitor 01/10/23 Qty: 30 with 5 refills Should have refills left. Last refill quinapril 10/04/22 Qty: 90 with 1 refill CHRISTA 10/12/22 NOV 04/05/23 Ronan Jean LPN documented in this encounterChillicothe Hospital04-22-2023 Miscellaneous Notes* Telephone Encounter - Otoniel Tomlin MD - 01/15/2023 9:08 AM EDT Received message from milk drying machine operator overnight re bleeding per almanza, called back and discussed with . Per ,urine is draining freely and thin, varies in color from clear to pink to light red, scant very small clots intermittently. Also some leakage around catheter, but catheter continues to flow well. No fevers/chill/n/v. Advised that they continue to monitor, maintain good hydration. Discussed alarm sx incl sx of obstruction or clots larger than size of coin or thick urine like tomato paste or fevers/chills, and should they arise the need for ED eval. I've asked the provide the office with a status update on Tuesday. They understand and agree and all questions answered. Otoniel Tomlin MD documented in this encounterChillic[facility]04-21-2023 Miscellaneous Notes* Telephone Encounter - Elsy Ramos RN - 01/14/2023 2:47 PM EDT Left voicemail message requesting call back to office to schedule trial of void at nurse visit. 2 open appointment slots available as options , January 20. documented in this encounterChillic[facility]04-19-2023 Miscellaneous Notes* Telephone Encounter - Ni Feng RN - 01/12/2023 3:27 PM EDT I called pt, name and verified. Patient given urine culture lab results and instructed to start Macrobid today. Patient verbalized understanding. Questions answered. Ni Feng RN PACC Resource Nurse January 12, 2023 3:28 PM * Telephone Encounter - Ni Feng RN - 01/12/2023 3:27 PM EDT ----- Message from Yun Coles MD sent at 01/12/2023 3:04 PM EDT ----- Regarding: RE: Urine culture results resulted on 01/12 Thank you. I've been waiting on sensitivities but I will start him on nitrofurantoin empirically since surgery is Tuesday. Is one of you able to call him? I will place the order. Thank you ----- Message ----- From: Ni Feng RN Sent: 01/12/2023 2:52 PM EDT To: Yun Coles MD, Brandi Messina APRN.TIME SIGNAL WIRER, # Subject: Urine culture results resulted on 01/12 DOS 01/14/23 Dr. Coles, Please review preliminary urine culture resulted on 01/12/23 and advise. Culture >=100,000 CFU/ml Lactose positive gram negative bacilli Abnormal Susceptibility results to follow. <10,000 CFU/ml Lactose positive gram negative bacilli Abnormal Morphology 2 Insignificant colony count. No further workup. Thank you, Ni Feng RN PACC Resource Nurse January 12, 2023 2:51 PM documented in this encounterChillicothe Hospital04-19-2023 History of Present illness Narrative* Yun Coles MD - 01/12/2023 3:06 PM EDT documented in this encounterChillicothe Hospital04-17-2023 Miscellaneous Notes* Telephone Encounter - Francisco Bahena MD - 01/10/2023 12:58 PM EDT The following approved medication requests have been transmitted electronically. Requested Prescriptions Signed Prescriptions Disp Refills atorvastatin (LIPITOR) 10 mg tablet 30 tablet 5 Sig: Take 1 tablet by mouth daily at bedtime. For cholesterol. Authorizing Provider: FRANCISCO BAHENA MD * Telephone Encounter - Maile Manning MA - 01/10/2023 12:00 PM EDT CHRISTA: 10/12/22 with DK NOV: 04/05/23 6 month F/U-with RR Last refill: 07/09/2022 With 30 and 5 refills Maile Manning MA documented in this encounterChillicothe Hospital04-12-2023 Instructions* Patient Instructions* Brandi Messina APRN.TIME SIGNAL WIRER - 01/05/2023 11:43 AM EDT PATIENT PREOPERATIVE INSTRUCTIONS Yun Coles MD has scheduled you for your procedure at this surgery center: [facility]: [phone] --[id number] [place] [address]. Please enter through the entrance closest to [facility]. Please read below carefully for your personalized instructions. Dietary Restrictions: - No solid food after midnight. - You may have 12 ounces of clear liquids (water, clear juices such as apple juice or gatorade, carbonated beverages, clear tea, black coffee, jello) until 2 hours before scheduled arrival at facility. No red/purple coloring and no creamer/sugar Medications: Unless instructed differently below, stay on all of your medications until your surgery. Approved medications to take the morning of surgery with a sip of water: atorvastatin (LIPITOR), fexofenadine (HESHAM), finasteride (PROSCAR), pantoprazole DR (PROTONIX), tamsulosin (FLOMAX) Do not take furosemide (LASIX), hydrochlorothiazide, quinapril (ACCUPRIL) the morning and/or evening prior surgery If you take any medications for erectile dysfunction-Cialis (Tadalafil), Levitra, Staxyn (Vardenafil) Viagra (Sildenenafil please do not take these for 48 hours before surgery. If you start any new medications after today's visit, please contact the surgeon's office. Blood Thinning Medications: - Stop NSAIDS (Ibuprofen, Advil, Aleve, Motrin, Celebrex, Mobic, etc.) 7 days before surgery, as directed by your surgeon. - Stop Aspirin 7 days before surgery, as directed by your surgeon. - Stop Vitamin E, ALL multi-vitamins, herbals and dietary supplements 7 days before surgery. - You may take Tylenol (Acetaminophen) or any of your pain medications that do not contain aspirin or NSAIDS as needed. Important Reminders: - Candy, mints, gum and tobacco products are NOT permitted the morning of surgery. - Hearing aids, dentures and glasses may be worn the morning of surgery. - NO jewelry, body piercings, makeup, hairpins or contacts are to be worn the day of surgery. If you develop symptoms such as a fever, cold, or flu, or have other changes to your health within TWO DAYS of scheduled surgery or the morning of surgery, please contact the surgery center above. Personal Belongings: -Please have photo ID and insurance cards. -If you do not have a copy of advance directives on file with us, please bring a copy with you on the day of surgery. - Leave ALL valuables and money at home or with family members. For Outpatient Procedures: - YOU MUST HAVE A RESPONSIBLE CALENDER OPERATOR HELPER TAKE YOU HOME. A WEB PAGE DESIGNER OR PARQUET FLOOR LAYER'S HELPER CANNOT BE MADE A RESPONSIBLE CALENDER OPERATOR HELPER. - We recommend that a responsible person stays with you overnight to take care of you. - You cannot stay in a hotel alone after outpatient surgery. You will not be permitted to have yoursurgery, if you do not have someone to take care of you. Arrival Time for Surgery: - The Surgery Center or hospital where you are having surgery will call the afternoon before surgery (or Tuesday for Tuesday surgery) with a scheduled arrival time. - If you have not heard by 4 pm, please contact the surgery center above. Please be aware that emergency situations arise, which may delay or change your surgical time. If this happens, we will notify you as soon as possible and regret any inconvenience. If you already have an Advance Directive, please fax a copy to [phone] or email to for it to be added to your chart. If you do not have an Advance Directive, you can find the appropriate form and more information at [email or web address]. We recommend that youcomplete the Advance Directive form found on the website and bring it with you the day of your surgery. It can be witnessed and scanned into your chart that day. Brandi Messina APRN.RHODA documented in [facility] History and physical note * Brandi Messian APRN.CNP - 01/05/2023 11:40 AM EDT HISTORY AND PHYSICAL EXAMINATION SERVICE DATE: 01/05/2023 SERVICE TIME: 4:44 PM PRIMARY CARE PHYSICIAN: Francisco Bahena MD REASON FOR VISIT: Javier Bond is a 82 year old male who is scheduled for Procedure(s): TURP COMPLETE W/ SALINE BIPOLAR (N/A) at the request of Dr. Yun Coles for consultation. My final recommendation will be communicated back to the requesting physician by way of shared medical record or letter. 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 Other Idiopathic Scoliosis, Lumbar Region Primary Osteoarthritis of Both First Carpometacarpal Joints Situational Anxiety Ilioinguinal Neuralgia of Left Side History of Compression Fracture of Spine Osteoporosis Hypercalciuria, Idiopathic Lumbar Radiculopathy Chronic Constipation Thyroid Nodule Bilateral Carotid Artery Stenosis Degenerative Lumbar Spinal Stenosis S/P Lumbar Spinal Fusion Oropharyngeal Dysphagia Situational Depression Walker As Ambulation Aid Unstable Gait Prostate Disorder Medication Management Elevated Blood Sugar Medicare Annual Wellness Visit, Subsequent Other Specified Anemias Peripheral Edema Living Will in Place Advance Directive Discussed With Patient Abnormal Spep Itchy Skin Iron Deficiency Anemia Due to Chronic Blood Loss Cognitive Impairment Uti (Urinary Tract Infection) COVID-19 Immunization Status COVID-19 VACCINE (Series Information) Completed 06/29/2022 Imm Admin: COVID-19 booster vaccine, age 12+ yr, bivalent (PFIZER-BIONTECH) 12/28/2021 Imm Admin: COVID-19 vaccine, age 12+ yr (PFIZER-BIONTECH - DUMONT TOP) 06/19/2021 Imm Admin: COVID-19 vaccine, age 12+ yr (PFIZER-BIONTECH - PURPLE TOP) Only the first 3 history entries have been loaded, but more history exists. CHIEF COMPLAINT: Pre-op exam HPI: Javier Bond is a 82 year old seen for PAC due to scheduled above surgery because of BPH. 12/17/2022, Dr. Coles Pt unable to connect with video. Follow up to review UDS results. Impression: Terminal DO and high pressure low flow voiding, severe bladder trabeculation with diverticuli - picture consistent with obstruction. No new symptoms. 82 yo M with BPH/ALONSO associated with incomplete emptying, recurrent UTIs and severe bladder trabeculation but good bladder contraction on UDS Recommend bladder outlet procedure given likelihood of bladder decompensation and ongoing recurrentUTIs over time. Discussed r/b/a of TURP and offered referral to BPH specialist. Schedule TURP Will contact hematology given chronic anemia on iron infusions. Discussed risk of bleeding. REVIEW OF SYSTEMS: General: No weight loss, malaise or fevers. Neurological: +memory. No history of TIA's, stroke, JAVA CONSULTANT tumor, impaired sensorium, hemiplegia, paraplegia or quadraplegia. No neurological symptoms or problems. Respiratory: +COVID vaccines. No history of current cough or dyspnea, or pneumonia in the past 6 weeks. No history of respiratory/pulmonary symptoms or problems. Cardiovascular: Positive for: hyperlipidemia and hypertension Negative for: anticoagulation therapy, arrhythmia, atrial fibrillation, CAD, chest pain, CHF, congenital heart defect, DVT/PE, recent WA, murmur/valvular heart disease, open heart surgery and valve surgery. GI: +chronic constipation, rx Positive for: dysphagia (resolving, speech therapy) and GERD (on rx) Negative for: abdominal pain, colon cancer, diverticulitis, irritable bowel syndrome, inflammatory bowel disease, liver disease, nausea, pancreatitis, vomiting and ETOH >2 drinks/day. : See HPI. Positive for: nephrolithiasis and urinary tract infection (currently being tx for UTI). Endocrine: Negative for: diabetes mellitus and hypothyroidism. Hematology: Positive for: anemia, iron deficiency anemia (receiving Venofer infusions) and chronic anti-coagulation/platelet meds. Patient is on anti-coagulation/platelet medication(s): Aspirin. Negative for: bruises/bleeds easily and transfusion of at least 4 units within 72 hours prior to surgery. Oncology: No history of CA metastasis, chemo within 30 days, or radiotherapy within 90 days. No history of oncological symptoms or problems. Psych: Positive for: anxiety. Musculoskeletal: +osteoporosis, on supplements +compression fracture C3 S/p lumbar fusion +right leg numbness Skin: Negative for lesions, rash and itching. PAST MEDICAL HISTORY Diagnosis Date Abnormal SPEP 12/14/2022 Advance directive discussed with patient 10/04/2022 Discussed 09/2022 Benign intracranial hypertension 11/30/2002 Bilateral carotid artery stenosis 12/03/2020 US 08/2020: Rt 20-40%, Lt 0-20% 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 Chronic constipation 12/03/2020 Compression fracture of third lumbar vertebra (HCC) 11/05/2019 Degenerative lumbar spinal stenosis 12/15/2020 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/24/2022 S/p removal 08/2022 Essential hypertension, benign Family history of malignant neoplasm of gastrointestinal tract GERD (gastroesophageal reflux disease) 03/25/2009 Hiatal hernia 06/09/2022 History of compression fracture of spine 11/05/2019 Hypercalciuria, idiopathic 02/11/2020 Hypertrophy of prostate without urinary obstruction and other lower urinary tract symptoms (LUTS) Ilioinguinal neuralgia of left side 09/27/2019 Internal hemorrhoids without mention of complication Living will in place 10/04/2022 DPA: Peter Lumbar degenerative disc disease 09/14/2012 Lumbar radiculopathy 07/03/2020 Medicare annual wellness visit, subsequent 09/10/2021 Medicare Part B: Not able to find Last done: 09/10/2021 Nephrolithiasis 07/04/2007 Osteoporosis 01/28/2020 Other specified anemias 03/16/2022 Acute blood loss 11/2020 (post surgery) Peripheral edema 05/21/2022 Primary osteoarthritis of both first carpometacarpal joints 05/04/2018 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 09/09/2015 Rosacea 09/09/2015 S/P lumbar spinal fusion 12/15/2020 Sepsis due to Gram-negative organism with septic shock (HCC) 12/17/2020 Proteus mirabilis UTI Situational anxiety 06/27/2019 Situational depression 02/27/2021 Spondylosis of lumbar region without myelopathy or radiculopathy 03/10/2018 Thyroid nodule 12/03/[address] Zacarias Unstable gait 05/21/2021 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 05/11/2021 PAST SURGICAL HISTORY Procedure Laterality Date ARTHRP INTERPOS INTERCARPAL/METACARPAL JOINTS Left 05/24/2018 Left thumb CMC arthroplasty with LRTI and MCP pinning of left thumb COLONOSCOPY FLX DX W/COLLJ SPEC WHEN PFRMD 07/17/082012 COLONOSCOPY FLX DX W/COLLJ SPEC WHEN PFRMD 03/28/2019 MICHAEL Alvarado CYSTO.PANBRITTANYO 02/20/2021 stent removal EGD TRANSORAL BIOPSY SINGLE/MULTIPLE 12/26/2008 ESOPHAGOGASTRODUODENOSCOPY TRANSORAL DIAGNOSTIC 03/18/2020 EGD EXCISION OF CYST squamous cell on head LAP, REVISION DEMETRIO FUNDOPLASTY 03/11/2009 hiatal hernia LAPAROSCOPY SURG CHOLECYSTECTOMY 03/11/2009 LITHOTRIPSY XTRCORP SHOCK WAVE 1982,12/07/2006, 2012 NEPHROLITHOTOMY REMOVAL STAGE 1 Right 11/28/2006, 2011 (R) ureteroscopic OPEN REPAIR OF ROTATOR CUFF ACUTE Right 12/06/2002 OPEN REPAIR OF ROTATOR CUFF ACUTE Left 08/26/2004 PAST SURGICAL HISTORY OF 08/2022 re-moval of esophageal diverticulum. PERIPHERAL NERVE BLOCK (MOD 59) Bilateral 11/01/2016, 03/28/2018 bilateral lumbar facet medial branch nerve block (l4-5, L5-S1) REMOVAL OF HEMORRHOID CLOT 06/2017 SPINAL FUSION,ANT,EA ADNL LEVEL 2000 TONSILLECTOMY HX Childhood XCAPSL CTRC RMVL INSJ IO LENS PROSTH W/O ECP Bilateral 08/25/2016 FAMILY HISTORY Problem Relation Age of Onset Cancer Mother lung Cancer Father colon Cancer Brother lymphoma Social History Tobacco Use Smoking status: Former Types: Cigarettes Quit date: 06/24/1963 Years since quittin.5 Smokeless tobacco: Never Tobacco comments: quit in his 20's - smoked socially while in college Vaping Use Vaping Use: Never used Substance Use Topics Alcohol use: Yes Comment: 1-2 drinks in A MONTH Drug use: No Prior to Admission medications as of 01/05/23 1143 Medication Sig Last Dose Taking nitrofurantoin monohydrate and macrocrystal (MACROBID) 100 mg capsule Take by mouth. Taking Yes fexofenadine (HESHAM ALLERGY) 180 mg tablet Take one tablet one to two times a day Taking Yes Ascorbic Acid (VITAMIN C) 1,000 mg tablet Take 1 tablet by mouth twice daily. Taking Yes hydroCHLOROthiazide (HYDRODIURIL, ESIDRIX) 12.5 mg tablet Take 1 tablet by mouth once daily. TakingYes d-mannose powd Take by mouth once daily. Taking Yes quinapril (ACCUPRIL) 5 mg tablet Take 1 tablet by mouth once daily. Taking Yes furosemide (LASIX) 20 mg tablet Take 1 tablet by mouth once daily. Taking Yes tamsulosin (FLOMAX) 0.4 mg Take 1 capsule by mouth once daily. Taking Yes finasteride (PROSCAR) 5 mg tablet Take 1 tablet by mouth once daily. Taking Yes traZODone (DESYREL) 50 mg tablet Take 0.5 tablets by mouth daily at bedtime. Patient taking differently: Take 50 mg by mouth daily at bedtime. Taking Yes triamcinolone acetonide (KENALOG) 0.1 % cream Apply 1 application to affected area as directed. Taking Yes Docusate Sodium 250 mg capsule Take 100 mg by mouth twice daily. Taking Yes atorvastatin (LIPITOR) 10 mg tablet Take 1 tablet by mouth daily at bedtime. For cholesterol. Taking Yes pantoprazole DR (PROTONIX) 40 mg tablet Take 40 mg by mouth once daily. Taking Yes doxycycline 20 mg tablet Take 20 mg by mouth twice daily. Taking Yes multivit-min/iron/folic acid/K (ADULTS MULTIVITAMIN ORAL) Take 1 tablet by mouth once daily. [facility] for right lower extremity. Taking Yes acetaminophen (TYLENOL) 500 mg tablet Take 2 tablets by mouth every 8 hours as needed for Pain or Fever. Taking Yes aspirin 81 mg chewable tablet Take 1 tablet by mouth once daily. Taking Yes metroNIDAZOLE 0.75 % cream Apply 1 application to affected area once daily. Taking Yes Medication Comments documented by Dorothy Stuart RPh on 08/04/2022 at 1104. 08/04/22 The medications are managed by this patient by: PATIENT and SPOUSE Dorothy Stuart RPh ALLERGIES Allergen Reactions Contrast Dye Hives Finacea [Azelaic Ac* Rash Bactrim [Sulfametho* Unknown Bextra [Valdecoxib] Unknown Cardura [Doxazosin * Unknown Ciprofloxacin Unknown Cytotec [Misoprosto* Unknown Fosamax [Alendronat* Vomiting heartburn, vomiting Gabapentin Mental Status Change Keflex [Cephalexin] Rash Ketoconazole Unknown Levofloxacin Other: See Comments Pseudomonas Mobic [Meloxicam] Unknown Nitrofurantoin Other: See Comments Per , "he didn't feel well" - unsure of reaction Nsaids (Non-Steroid* Unknown GI UPSET Relafen [Nabumetone] Unknown Terbinafine GI Upset Objective PHYSICAL EXAM: General: alert and oriented (x3) and healthy appearance. Pertinent negatives noted - not distressed. Skin: normal color, no rash or lesions. HEENT: EOM intact and pupils equal round. Pertinent negatives noted - no carotid bruit. Cardiovascular: regular rate and rhythm, normal S1 and S2, no rub, murmurs, or gallop. Respiratory: normal breath sounds, no wheezes or crackles. No chest wall deformity or tenderness. Abdomen: soft. Pertinent negatives noted - not tender. Extremities: Positive for edema (BLE 1+). Neurological: normal cognition and motor skills. Gait normal. No weakness or sensory deficit. PAIN ASSESSMENT: VITALS: BP 128/66 Pulse 78 Temp (Src) 99.1 (Temporal) Resp 16 Ht 5' 10" (1.78m) Wt 166 lb (75.3kg) SpO2 99% BMI 23.82 kg/(m^2). Diagnostic tests reviewed for today's visit: Lab Value Units Date High Low HB 12.5 g/dL 12/14/2022 17.0 13.0 HCT 38.0 % 12/14/2022 51.0 39.0 WBC 4.98 k/uL 12/14/2022 11.00 3.70 PLT 173 k/uL 12/14/2022 400 150 NA 139 mmol/L 10/12/2022 144 136 K 4.4 mmol/L 10/12/2022 5.1 3.7 GLUC 90 mg/dL 10/12/2022 99 74 BUN 19 mg/dL 10/12/2022 24 9 CREAT 0.84 mg/dL 10/12/2022 1.22 0.73 PTSEC No results within date range. INR No results within date range. APTT No results within date range. ALT 19 U/L 10/12/2022 54 10 AST 23 U/L 10/12/2022 40 14 TBILI 0.5 mg/dL 10/12/2022 1.3 0.2 TSH 3.560 mIU/L 12/02/2022 4.200 0.270 Lab Value Units Date High Low HCGQT No results within date range. UHCG No results within date range. HCG, BODY* No results within date range. Lab Value Units Date High Low ABORHD No results within date range. ABSCREEN No results within date range. Hemoglobin A1C (%) Date Value 10/12/2022 5.5 03/15/2022 5.4 09/04/2021 5.2 02/27/2021 5.3 Recent Results (from the past 8760 hour(s)) ECG COMPLETE Collection Time: 07/09/22 9:26 AM Result Value Ventricular Rate 72 Atrial Rate 72 P-R Interval 182 QRS Duration 88 QT Interval 380 QTC Calculation (Bazett) 416 Calculated P Abernathy 59 Calculated R Abernathy 32 Calculated T Abernathy 52 Impression NORMAL SINUS RHYTHM NORMAL ECG Confirmed by HONEY MICHAELS DO ([id number]) on 07/14/2022 12:37:59 PM Recent Results (from the past 50871 hour(s)) ECHO Collection Time: 07/02/22 9:54 AM Impression CONCLUSIONS: - Technically difficult exam due to body habitus. - Exam indication: Pre op clearance - The left ventricle is normal in size. Left ventricular systolic function is mildly decreased. EF = 50 5% (2D biplane) Grade I left ventricular diastolic dysfunction. - The right ventricle is normal in size. Right ventricular systolic function is normal. - There are no significant valvular abnormalities. - Exam was compared with the prior CC echocardiographic exam performed on 12/18/2020, LVEF has increased. * * * Final * * * Assessment Patient has the following medical conditions which may affect silverio-operative course: Bilateral carotid artery stenosis Assessment: US stable, right 20-40%, left 0-20% Essential hypertension, benign Assessment: controlled on rx Last 14 BP Last 14 Encounter BP Readings: Date: BP: 01/05/2023 128/66 01/03/2023 136/65 12/30/2022 122/63 12/24/2022 128/85 12/22/2022 136/65 12/17/2022 103/47 12/14/2022 126/80 11/24/2022 131/81 10/12/2022 128/76 10/04/2022 104/62 08/23/2022 126/60 07/31/2022 117/91 07/29/2022 146/89 07/21/2022 148/74 GERD (gastroesophageal reflux disease) Assessment: controlled on rx 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 loss Assessment: receiving Venofer IV, following hematology CBC with diff: WBC 4.98 12/14/2022 RBC 4.07 12/14/2022 Hemoglobin 12.5 12/14/2022 HCT 38.0 12/14/2022 MCV 93.4 12/14/2022 MCH 30.7 12/14/2022 MCHC 32.9 12/14/2022 RDW-CV 13.2 12/14/2022 PLT 173 12/14/2022 MPV 9.2 12/14/2022 Neut% 53.3 12/14/2022 Lymph% 34.7 12/14/2022 [place]% 8.6 12/14/2022 Eosin% 1.5 09/04/2021 Baso% 0.8 12/14/2022 Abs Neut (ANC) 2.65 12/14/2022 Abs Lym 1.10 12/19/2020 Abs [place] 0.43 12/14/2022 Abs Eosin 0.12 12/14/2022 Abs Baso 0.04 12/14/2022 Peripheral edema Assessment: on rx 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 Assessment: h/o, asymptomatic, PCP monitoring Situational anxiety Assessment: rx as needed Thyroid nodule Assessment: bx benign, denies compressive symptoms 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 Melendrez Activity Status Index: METS: Walk indoors, such as around the house (1.75 METs) Do light work around the house, such as dusting or washing dishes (2.70 METs) Take care of self; that is eating, dressing, bathing, using the toilet (2.75 METs) Walk a block or two on level ground (2.75 METs) Climb a flight of stairs or walk up a hill (5.50 METs) DASI Score: 15.45 (With walker due to unsteady gait) Patient denies any chest pain or undue shortness of breath with the above physical activity. Clinical Frailty Scale: 5. Mildly frail STOP-Bang Score: Has or is being treated for high blood pressure Patient over 50 years old Male patient Denies snoring loudly Denies feeling tired, fatigued, or sleepy during the daytime Has not been observed to stop breathing or choking/gasping during sleep BMI less than or equal to 35 kg/m^2 Does not have a large neck STOP-Bang Score: 3 [id number] Score: Age: >=75 Sex: male CHF history: No Hypertension history: Yes Stroke/TIA/thromboembolism history: No Vascular disease history: No Diabetes history: No [id number] Score: 3 ARISCAT Score: Age: 51-80 Preoperative SpO2: >=96% Respiratory infection in the last month: No Preoperative anemia: No Surgical incision: peripheral Duration of surgery: <2 hrs Emergency procedure: No ARISCAT Score: 3 ASA Class: 3 ANESTHESIA FINDINGS: Intubation History: No history of difficult intubation Significant Anesthesia Considerations: none Airway History: No history of difficult airway I - PHYSICAL EVALUATION AIRWAY Patient intubated: No. Tracheostomy tube not present Mallampati: II. TM distance: >3 FB. Neck ROM: full ROM without neurological symptoms. Mouth opening: adequate. Short neck: no. Thick neck: no Lopez present: no Lip Bite Test: I Microretrognathia/Micronagthia/Recessed Chin: No DENTAL Dentures, upper: complete. Dentures, lower: partial. II - ANESTHESIA PLAN ASA Score: 3 Anesthetic Plan: other Anesthetic plan additional comments: *PACC - anesthesia choice. Beta Arelis Monitoring Plan Post Procedure Analgesic Plan Informed Consent Anesthetic risks, benefits, alternatives, personnel and consent discussed: yes. Patient / Responsible Constitution Party agrees to proceed: yes Patient / Surrogate agrees to blood products: Yes Discussed the possibility of lip / dental damage: yes Prepared for Surgery: optimally prepared for surgery, pending [see comment]. labs CONSULTS: Patient does not require consults for optimization at this time Planned Anesthetic: other anesthesia choice The Following Tests/Procedures Have Been Initiated: Orders Placed This Encounter nitrofurantoin monohydrate and macrocrystal (MACROBID) 100 mg capsule Sig: Take by mouth. Instructions Given to Patient: Instructions located in the after visit summary. Patient given verbal and written preop instructions and voices comprehension and compliance. SIGNATURE: Brandi Messina APRN.CNP PATIENT NAME: Javier Bond DATE: January 05, 2023 TIME: 11:40 AM PAGER/CONTACT #: documented in this encounterCleveland [id number] History of Present illness Narrative* Yash Monroe MA - 01/03/2023 2:13 PM EDT Scan on 01/02/2023 5:07 PM by External Provider: CT Scan Scan on 01/02/2023 5:31 PM by External Provider: Consultation - Emergency Medicine Yash Monroe MA documented [facility] this [facility] Discharge summary Author Valeria Odom [facility] January 02, 2023 5:20pm Note Date/Time January 02, 2023 2:21 pm [facility] Medical Records Department [address] [place] [address] Emergency Department Summary 01/02/23 MR#: [id number] Acct: [id number] Name: JAVIER BOND Rep #:[id number] : 1940 82 From: Valeria FERGUSON PCP: Dr. Francisco Bahena MD Status:REG ER Location: ED HPI <PHYLLIS Mcgowan - Last Filed: 01/02/23 17:20> History of Present Illness Chief Complaint: Constipation Narrative Narrative: 82-year-old male presents with constipation x6 days. He is on a chronic bowel regimen of Dulcolax and normally has a daily bowel movement. He has chronic left lower quadrant pain since a left inguinal hernia repair in 2018 but it doesseem a little worse over the last few days. He has normal p.o. intake and no nausea or vomiting. He is passing gas. [facility] <PHYLLIS Mcgowan - Last Filed: 01/02/23 17:20> [facility] Medical History Abdominal pain Arthritis BPH (benign prostatic hyperplasia) Groin pain History of back problems History of hiatal hernia History of kidney stones Hypertension Inguinal hernia bilateral, non-recurrent Left inguinal hernia Right inguinal hernia Home Medications acetaminophen 500 mg tablet 500 mg PO PRN PRN Pain 04/03/17 [History Last Taken Unknown] finasteride 5 mg tablet 5 mg PO DAILY 04/03/17 [History Last Taken Unknown] hydrochlorothiazide 12.5 mg capsule 12.5 mg PO DAILY 04/03/17 [History Last Taken 07/18/19 05:30 12.5 MG] tamsulosin 0.4 mg capsule 0.4 mg PO DAILY 04/03/17 [History Last Taken Unknown] doxycycline hyclate 20 mg tablet 20 mg PO BID 03/13/19 [History Last Taken Unknown] metronidazole 0.75 % topical cream 1 applic topical BID 07/16/19 [History Last Taken Unknown] Lactobacillus acidophilus 10 mg PO DAILY 01/28/21 [History Last Taken Unknown] aspirin 81 mg tablet,delayed release (Rika Low Dose Aspirin) 81 mg PO DAILY 01/28/21 [History Last Taken Unknown] calcium carb-vitamin D3 ER 600 mg (1,500 mg)-500 unit tablet,ER 24 hr 1 tab PO LUNCH 01/28/21 [History Last Taken Unknown] melatonin 3 mg tablet 5 mg PO QHS 01/28/21 [History Last Taken Unknown] trazodone 50 mg tablet 50 mg PO QHS 01/28/21 [History Last Taken Unknown] multivitamin 1 tab PO DAILY 05/18/21 [History Last Taken Unknown] atorvastatin 10 mg tablet 1 tab PO QHS 05/03/22 [History Last Taken Unknown] docusate sodium 250 mg capsule 250 mg PO BID 05/03/22 [History Last Taken Unknown] furosemide 40 mg tablet (Lasix) 20 mg PO PRN PRN Edema 05/03/22 [History Last Taken Unknown] pantoprazole 40 mg tablet,delayed release 40 mg PO DAILY 05/03/22 [History Last Taken Unknown] quinapril 5 mg tablet (Accupril) 5 mg PO DAILY 05/03/22 [History Last Taken Unknown] nitrofurantoin monohydrate/macrocrystals 100 mg capsule (Macrobid) 100 mg PO Q12H 5 days #10 caps 01/02/23 [Rx Last Taken Unknown] polyethylene glycol 3350 17 gram/dose oral powder (Miralax) 17 g PO DAILY #119 grams 01/02/23 [Rx Last Taken Unknown] Allergy/AdvReac Type Severity Reaction Status Date / Time Iodinated Contrast Media Allergy Hives Verified 01/02/23 14:00 [CONTRASTS] azelaic acid [From Finacea] AdvReac Rash Verified 01/02/23 14:00 cephalexin [From Keflex] AdvReac Rash Verified 01/02/23 14:00 ciprofloxacin [From Cipro] AdvReac Nausea Verified 01/02/23 14:00 doxazosin [From Cardura] AdvReac Nausea Verified 01/02/23 14:00 gabapentin AdvReac Other Verified 01/02/23 14:00 ketoconazole AdvReac Diarrhea Verified 01/02/23 14:00 levofloxacin AdvReac Rash Verified 01/02/23 14:00 meloxicam [From Mobic] AdvReac Nausea Verified 01/02/23 14:00 misoprostol [From Cytotec] AdvReac Nausea Verified 01/02/23 14:00 nabumetone [From Relafen] AdvReac Nausea Verified 01/02/23 14:00 NSAIDS (Non-Steroidal AdvReac Nausea Verified 01/02/23 14:00 Anti-Inflamma sulfamethoxazole AdvReac Nausea Verified 01/02/23 14:00 [From Bactrim] terbinafine AdvReac Nausea Verified 01/02/23 14:00 trimethoprim [From Bactrim] AdvReac Nausea Verified 01/02/23 14:00 valdecoxib [From Bextra] AdvReac Other Verified 01/02/23 14:00 Family History Father Colon cancer Mother Cancer lung Hypertension Brother Cancer Surgical History history exacorporeal shock wave lithrotripsy history lap hiatal hernia repair History of bilateral cataract extraction History of colonoscopy (~02/2019) History of hemorrhoidectomy History of laparoscopic cholecystectomy History of left inguinal hernia repair (~07/18/19) History of right inguinal hernia repair history repair left thumb history ureteral stent insertion Hx of repair of left rotator cuff Hx of repair of right rotator cuff Social History household members: spouse Smoking Status: Never smoker alcohol intake: current alcohol intake frequency: a few times a month substance use type: does not use ROS <PHYLLIS Mcgowan - Last Filed: 01/02/23 17:20> ROS ED ROS Narrative Constitutional: Negative for fever, chills, malaise. CVS: Negative for chest pain. Respiratory: Negative for shortness of breath. GI: Positive for abdominal pain, constipation. : Negative for dysuria. EXAM <PHYLLIS Mcgowan - Last Filed: 01/02/23 17:20> Physical Exam Narrative Exam Narrative: CONST: Patient sitting in no acute distress. EYES: Normal inspection. ENT: Normal inspection, moist mucous membranes. NECK: Normal inspection. RESP: No respiratory distress, CTAB. CVS: Regular rate and rhythm, no murmur, no gallop. ABD: Soft with slight left inguinal tenderness and no palpable hernia, no guarding or rebound, nondistended. Normal bowel sounds x4. Rectum: No stool in rectal vault. No masses or tenderness. SKIN: Color normal, no rash, warm, dry, intact. EXTREMITIES: Normal appearance, no pedal edema. NEURO: Oriented x4. PSYCH: Normal affect. Const Vital Signs: 01/02/23 14:00 01/02/23 16:54 Temperature 98.3 F Temperature Source Temporal Pulse Rate 66 62 Respiratory Rate 14 16 Blood Pressure 120/65 118/63 Blood Pressure Mean 83 81 Pulse Ox 100 100 Oxygen Delivery Method Room Air Room Air <Dr. Marlo Echevarria DO - Last Filed: 01/02/23 16:18> Physical Exam Const Vital Signs: 01/02/23 14:00 01/02/23 16:54 Temperature 98.3 F Temperature Source Temporal Pulse Rate 66 62 Respiratory Rate 14 16 Blood Pressure 120/65 118/63 Blood Pressure Mean 83 81 Pulse Ox 100 100 Oxygen Delivery Method Room Air Room Air MDM <PHYLLIS Mcgowan - Last Filed: 01/02/23 17:20> [facility] Narrative Medical decision making narrative: History gathered from: Patient and Patient having 6 days of constipation. Having slight increase in his chronic left lower quadrant abdominal pain over area of prior hernia repair. No vomiting and normal p.o. intake. He appears well and nontoxic with normal vitalsigns. He is slight left lower quadrant tenderness but no guarding or rebound. No distention. Normal bowel pumps. Rectal vault is empty. CBC shows normal white count 4.4, hemoglobin 11.3 around baseline. BMP is within normal limits. CT shows increased stool but no obstruction. Patient also complained of urinaryfrequency and UA is positive for UTI. He states he has history of recurrent infections but has not recently been on antibiotics. He follows with a urologist and is scheduled for a TURP in the next couple weeks. He has an extensive antibiotic allergy list will be prescribed Macrobid. Also prescribed MiraLAX that he should take in addition to his home docusate for constipation. We discussed return precautions and he was discharged in stable condition. Differential: Constipation, bowel obstruction, diverticulitis I have personally performed a face to face assessment of the patient and have reviewed the LUIS Note. I performed a substantive portion of the visit including all aspects of the following. My douglas findings include: History is [constipation x6 days. Patient normally takes stool softeners daily. He denies change in his diet. He denies any new medications. He started experiencing increased discomfort in his left lower quadrant. He denies blood in the stool. He does have urinary frequency and is scheduled to have a TURP next month. Patient denies fever. He denies vomiting.] Patient normally has bowel movements daily. Exam is [HEENT-PERRLA, EOMI. Cranial nerves II through XII grossly intact. TMs clear. Mucous membranes moist. No adenopathy. Cardiovascular-regular rate and rhythm without murmur or ectopy Lungs-clear to auscultation, chest wall stable without crepitus or subcu emphysema Abdomen-normoactive bowel sounds, soft, nontender, no rebound or rigidity, no peritoneal signs. Extremities-intact ?4, normal range of motion, normal pulses, atraumatic] Medical Decison Making [patient seen in conjunction with physician field assistant. Physician field assistant did perform rectal exam and there was no evidence of impaction.] Patient CBC with differential was unremarkable. Chemistries unremarkable. Urine showed 500 leukocyte esterase with 25-50 WBCs and +1 bacteria. A culture will be sent. We will give patient Rocephin [address] scan abdomenpelvis pending. Case discussed with evening physician and case will be turned over to her awaiting CT results and final disposition. Other additions or changes: [None] Lab Data Labs: Laboratory Results - last 24 hr 01/02/23 01/02/23 01/02/23 14:40 14:40 15:23 WBC 4.4 RBC 3.69 L Hgb 11.3 L Hct 35.3 L MCV 95.7 H MCH 30.6 MCHC 32.0 RDW Std Deviation 46.0 H RDW Coeff of Ezequiel 13.2 Plt Count 154 MPV 9.5 Immature Gran % (Auto) 0.200 Neut % (Auto) 42.7 L Lymph % (Auto) 43.0 H [place] % (Auto) 11.1 H Eos % (Auto) 2.3 Baso % (Auto) 0.7 Absolute Neuts (auto) 1.9 L Absolute Lymphs (auto) 1.90 Nucleated RBC % 0 Sodium 139 Potassium 3.9 Chloride 104 Carbon Dioxide 30.0 Anion Gap 5 BUN 18 Creatinine 0.91 Estim Creat Clear Calc 66.85 Est GFR (MDRD) Af Amer 103 Est GFR (MDRD) Non-Af 85 BUN/Creatinine Ratio 19.7 Glucose 93 Calcium 9.0 Urine Color Yellow Urine Clarity Sl. Cloudy Urine pH 6.5 Ur Specific [place] 1.010 Urine Protein Negative Urine Glucose (UA) Normal Urine Ketones Negative Urine Occult Blood 10 H Urine Nitrite Negative Urine Bilirubin Negative Urine Urobilinogen Normal Ur Leukocyte Esterase 500 H Urine RBC 0-5 SEEN Urine WBC 25-50 SEEN Ur Squamous Epith Cells 0-5 SEEN Amorphous Sediment 1+ URATE Urine Bacteria 1+ Urine Mucus 0 SEEN Radiography Diagnostic Testing: Clinical Impression(s) from Imaging Studies Abdomen CT 01/02/23 14:47 IMPRESSION: Nonobstructing nephroliths on the left. UTI versus recent bladder catheterization. Increased stool. Moderate scoliosis and lumbar fusion. Electronically Signed: Ángel Chris MD at 17:02 EDT Reading Location ID and State: [address] [place] [address] , Service support , <Dr. Marlo Echevarria, DO - Last Filed: 01/02/23 16:18> [facility] Narrative Medical decision making narrative: I have personally performed a face to face assessment of the patient and have reviewed the LUIS Note. I performed a substantive portion of the visit including all aspects of the following. My douglas findings include: History is [constipation x6 days. Patient normally takes stool softeners daily. He denies change in his diet. He denies any new medications. He started experiencing increased discomfort in his left lower quadrant. He denies blood in the stool. He does have urinary frequency and is scheduled to have a TURP next month. Patient denies fever. He denies vomiting.] Patient normally has bowel movements daily. Exam is [HEENT-PERRLA, EOMI. Cranial nerves II through XII grossly intact. TMs clear. Mucous membranes moist. No adenopathy. Cardiovascular-regular rate and rhythm without murmur or ectopy Lungs-clear to auscultation, chest wall stable without crepitus or subcu emphysema Abdomen-normoactive bowel sounds, soft, nontender, no rebound or rigidity, no peritoneal signs. Extremities-intact ?4, normal range of motion, normal pulses, atraumatic] Medical Decison Making [patient seen in conjunction with physician field assistant. Physician field assistant did perform rectal exam and there was no evidence of impaction.] Patient CBC with differential was unremarkable. Chemistries unremarkable. Urine showed 500 leukocyte esterase with 25-50 WBCs and +1 bacteria. A culture will be sent. We will give patient Rocephin [address] scan abdomen pelvis pending. Case discussed with evening physician and case will be turned over to her awaiting CT results and final disposition. Other additions or changes: [None] Lab Data Labs: Laboratory Results - last 24 hr 01/02/23 01/02/23 01/02/23 14:40 14:40 15:23 WBC 4.4 RBC 3.69 L Hgb 11.3 L Hct 35.3 L MCV 95.7 H MCH 30.6 MCHC 32.0 RDW Std Deviation 46.0 H RDW Coeff of Ezequiel 13.2 Plt Count 154 MPV 9.5 Immature Gran % (Auto) 0.200 Neut % (Auto) 42.7 L Lymph % (Auto) 43.0 [place] % (Auto) 11.1 H Eos % (Auto) 2.3 Baso % (Auto) 0.7 Absolute Neuts (auto) 1.9 L Absolute Lymphs (auto) 1.90 Nucleated RBC % 0 Sodium 139 Potassium 3.9 Chloride 104 Carbon Dioxide 30.0 Anion Gap 5 BUN 18 Creatinine 0.91 Estim Creat Clear Calc 66.85 Est GFR (MDRD) Af Amer 103 Est GFR (MDRD) Non-Af 85 BUN/Creatinine Ratio 19.7 Glucose 93 Calcium 9.0 Urine Color Yellow Urine Clarity Sl. Cloudy Urine pH 6.5 Ur Specific [place] 1.010 Urine Protein Negative Urine Glucose (UA) Normal Urine Ketones Negative Urine Occult Blood 10 H Urine Nitrite Negative Urine Bilirubin Negative Urine Urobilinogen Normal Ur Leukocyte Esterase 500 H Urine RBC 0-5 SEEN Urine WBC 25-50 SEEN Ur Squamous Epith Cells 0-5 SEEN Amorphous Sediment 1+ URATE Urine Bacteria 1+ Urine Mucus 0 SEEN Radiography Diagnostic Testing: Clinical Impression(s) from Imaging Studies Abdomen CT 01/02/23 14:47 IMPRESSION: Nonobstructing nephroliths on the left. UTI versus recent bladder catheterization. Increased stool. Moderate scoliosis and lumbar fusion. Electronically Signed: Ángel Chris MD at 17:02 EDT Reading Location ID and State: [facility] / [place] , Service support , Discharge Plan Triage Chief Complaint: Constipation ED Midlevel Provider: Valeria Odom ED Provider: Marlo Echevarria Dx/Rx/DC Orders Clinical Impression: Abdominal pain, Constipation, Acute UTI Instructions: ED Constipation (Adult), ED Bladder Infection, Male (Adult) Prescriptions: New nitrofurantoin monohyd/m-cryst [Macrobid] 100 mg capsule 100 mg PO Q12H 5 Days Qty: 10 0RF Rx Instructions: must administer with a meal/food polyethylene glycol 3350 [Miralax] 17 gram/dose powder 17 g PO DAILY Qty: 119 0RF Rx Instructions: take 1 cap twice per day until regular BMs, then once daily No Action metronidazole 0.75 % cream 1 applic TOPICAL BID acetaminophen 500 MG tablet 500 mg PO PRN PRN (Reason: Pain) tamsulosin 0.4 MG capsule 0.4 mg PO DAILY Label Comments: TAKE ONE CAPSULE BY MOUTH EVERY DAY hydrochlorothiazide 12.5 MG capsule 12.5 mg PO DAILY Label Comments: finasteride 5 MG tablet 5 mg PO DAILY Label Comments: TAKE 1 TABLET BY MOUTH EVERY DAY doxycycline hyclate 20 mg tablet 20 mg PO BID Label Comments: Rx Instructions: takes at noon on Mon-Wed-Fri trazodone 50 mg tablet 50 mg PO QHS melatonin 3 mg Tablet 5 mg PO QHS aspirin [Rika Low Dose Aspirin] 81 mg Tablet,Delayed Release (Dr/Ec) 81 mg PO DAILY Lactobacillus acidophilus Capsule 10 mg PO DAILY calcium carbonate-vitamin D3 600 mg(1,500mg) -500 unit Tablet Extended [id number] Hr 1 tab PO LUNCH multivitamin Tablet 1 tab PO DAILY atorvastatin 10 mg tablet 1 tab PO QHS Label Comments: TAKE 1 TABLET BY MOUTH DAILY AT BEDTIME. FOR CHOLESTEROL furosemide [Lasix] 40 mg tablet 20 mg PO PRN PRN (Reason: Edema) pantoprazole 40 mg Tablet,Delayed Release (Dr/Ec) 40 mg PO DAILY quinapril [Accupril] 5 mg Tablet 5 mg PO DAILY docusate sodium 250 mg Capsule 250 mg PO BID Primary Care Provider: Francisco Bahena Referrals: Francisco Bahena MD [Primary Care Provider] - Activity Restrictions/Additional Instructions: I prescribed MiraLAX for constipation. You take 2 caps per day until you are inregular bowel movements then go down to 1 cap daily. If your stool becomes too loose you can stop taking it. Continue taking her docusate every day as well. If symptoms worsen and you develop vomiting or increased abdominal pain or not having bowel movements despite medication use come back to the ER. Also of a urinary tract infection so I prescribed antibiotics. Follow-up with your primary care or urologist this week. What to do if you have Problems For any increased pain, shortness of breath, bleeding, nausea or vomiting, chestpain, or any unexpected problems, contact your Primary Care Provider. Call [facility] ([phone]) or report to the closest Emergency Room. Call 911 if necessary. 01/02/23 1720 <Electronically signed by Valeria FERGUSON> Cosigner Signature (if applicable): 01/02/23 1622 <Electronically signed by Marlo Echevarria DO> CC: Dr. Francisco Bahena MD ~ Signed [facility] Work Phone: [phone]) 998-525404-04-2023 Miscellaneous Notes* Telephone Encounter - Francisco Bahena MD - 12/28/2022 8:04 PM EDT Please let patient know we sent a refill for the finasteride to [facility] pharmacy at the end of September with enough refills to last a year. * Telephone Encounter - Tuan Duval LPN - 12/28/2022 4:25 PM EDT Patient phones requesting refills as follows: Requested Prescriptions Pending Prescriptions Disp Refills finasteride (PROSCAR) 5 mg tablet 90 tablet 3 Sig: Take 1 tablet by mouth once daily. CHRISTA 10/12/22 NOV 04/05/23 Please review and advise. Tuan Duval LPN documented in [facility] encounter[facility]04-[facility]23 Miscellaneous Notes* Telephone Encounter - Tadeo Hammond - 12/27/2022 12:45 PM EDT This is a 1st-time treatment report for this patient. 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 This is a Non-Oncology regimen. The drug being used is Venofer. There is no assistance available for insured patients. No Financial Navigator assessmentis needed at this time. documented in this encounterChillicothe [facility]03-24-2023 History of Present illness Narrative* Yun Coles MD - 12/17/2022 5:07 PM EDT Telephone Note Pt unable to connect with video. Follow up to review UDS results. Impression: Terminal DO and high pressure low flow voiding, severe bladder trabeculation with diverticuli - picture consistent with obstruction. No new symptoms. 82 yo M with BPH/ALONSO associated with incomplete emptying, recurrent UTIs and severe bladder trabeculation but good bladder contraction on UDS Recommend bladder outlet procedure given likelihood of bladder decompensation and ongoing recurrentUTIs over time. Discussed r/b/a of TURP and offered referral to BPH specialist. Schedule TURP Will contact hematology given chronic anemia on iron infusions. Discussed risk of bleeding. All questions and concerns were addressed. Yun Coles MD I spent a total of 25 minutes on the date of the service which included preparing to see the patient, completing clinical documentation, counseling and educating the patient/family/caregiver, ordering medications, tests, or procedures, and communicating with other HCPs (not separately reported). documented in this encounterChillicothe [facility]03-22-2023 Miscellaneous Notes* Telephone Encounter - Dorothy Padgett - 12/15/2022 4:28 PM EDT Spoke with patient's and scheduled. Dorothy Padgett * Telephone Encounter - Aspen Thorpe LPN - 12/15/2022 10:04 AM EDT Please reach out to pt to schedule Venofer. Aspen Thorpe LPN documented in this encounterChillicothe Hospital03-20-2023 Nurse Note* Alice Echevarria RN - 12/13/2022 12:56 PM EDT [facility] URODYNAMICS LAB URODYNAMIC PROCEDURE NOTE ID Verified by: Alice Echevarria RN with name and birthdate. Procedure instructions reviewed with patient prior to procedure: Yes Currently experiencing pain: No 0 on a scale of 0 to 10 on a scale of 0-10. Does the patient have any concerns about safety in the home/falls?: Not at risk for falls Has the patient had 2 falls in the last year or 1 fall with injury or currently using assistive device (walker, cane, wheelchair, crutches): Yes, walker without assist What interventions were put in place to prevent falls during this visit: Increased observations by caregivers Has patient had any history of Mitral Valve prolapse: No MEDS:NONE Has patient had any history of prosthetics: No MEDS: NONE Latex allergy: No Iodine allergy: No Allergies reviewed- patient states the contrast dye he is allergic to is IV contrast only. Spirits Model offered:Patient declines B/O UA: YES-Positive for leukocytes and negative for nitrates. UROFLOWMETRY- unable to void for pre-test uroflow d/t voiding in lobby prior to testing. Straight cath for 150 ml CYSTOMETROGRAM Subtracted:Yes Video: Yes EMG: Yes First Sensation: 120 ml Strong desire: 188 ml Max. capacity: 215 ml Maximum filling detrusor pressure 16 cm of water Detrusor overactivity associated with urge: Yes Detrusor overactivity associated with leakage: No Was patient assessed for VLPP / UPP No Leaks urine with valsalva /coughs: No Lowest Leak point pressure: n/a cm of water at n/a ml PRESSURE-FLOW VOIDING STUDY Did patient void with catheters in place Yes Voided: 156 ml voluntary Max Voiding Detrusor Pressure 69 cm H2O P det Q max (Max Flow): 60 cm H2O Maximum Flow Rate: 4.6 ml/sec Average Flow Rate: 2.0 ml/sec Fluro time: see xray notes Comments: Unable to void for pre-test uroflow d/t voiding in lobby prior to testing. Straight cath for 150 ml. Patient then filled to capacity for testing. Permission to void with strong desire. Voluntary void of 156 ml. STUDY DETAILS: Was a uroflow done at some point during the study: Yes Was a cystometrogram performed: Yes Was a UPP/VLPP done: No Was an EMG done: Yes Was an intraabdominal pressure recorded with urethral catheter in: Yes Where were pressure catheters placed: Bladder and Rectum Was contrast instilled for radiologic evaluation: Yes, Cysto-conray 250 ccs utilized Please use Urodynamic Graph. Pt given verbal home going instructions. Pt states an understanding of instructions given. Alice Echevarria RN documented in this encounterChillic[facility]03-16-2023 Miscellaneous Notes* Telephone Encounter - Yesika Lowe - 12/09/2022 12:50 PM EDT Spoke with patient and he plans on coming in tomorrow to complete labs * Telephone Encounter - Yash Monroe MA - 12/09/2022 8:52 AM EDT Left detailed message with regarding labs. Yash Monroe MA * Telephone Encounter - Francisco Bahena MD - 12/08/2022 7:17 PM EDT Let patient know hematology sent me a request for additional labs to be done. Orders placed. * Telephone Encounter - Ellis Kebede DO - 12/07/2022 4:29 PM EDT Would advise ordering: -Monoclonal protein, blood. -Immunoglobulins, CATHERINE. -[place]/Lambda, free serum. If positive for monoclonal antibody, then appropriate for hematology evaluation. Ellis Kebede DO * Telephone Encounter - Etta Moreno LPN - 12/07/2022 2:[address] Kebede can you look at this pts labs to see if appropriate consult or are there other labs that should be ordered prior? Etta Moreno LPN * Telephone Encounter - Dorothy Padgett - 12/07/2022 12:16 PM EDT Please advise re: consult. Dorothy Padgett * Telephone Encounter - Emily Schmidt Ma - 12/07/2022 11:31 AM EDT was notified and verbalized understanding. Please call patient to schedule Emily Schmidt Ma * Telephone Encounter - Francisco Bahena MD - 12/07/2022 11:21 AM EDT Let patient know that one of the labs that Dr. Chakraborty in Allergy/Immunology did for his work up cameback abnormal and would like him to see one of our optimization analyst. Not sure if this may be contributing to his itching. Consult order placed. documented in this encounterChillicothe Hospital03-14-2023 Miscellaneous Notes* Telephone Encounter - Coco Payne MD - 12/07/2022 3:55 PM EDT Discussed abnormal SPEP with patient's spouse. Staff message sent to Dr. Bahena the patient's primary care physician regarding this abnormality. Patient will have further evaluation completed through the office of Dr. Bahena or through hematology/oncology consultation. Coco Payne MD documented in this encounterChillicothe Hospital03-01-2023 Instructions* Patient Instructions* Coco Payne MD - 11/24/2022 2:12 PM EST Take fexofenadine/Hesham 180 mg 1 tablet once daily. If itching is not well controlled, increase fexofenadine/Hesham 180mg to 1 tablet twice daily. Bathe in warm, not hot water, using a gentle cleanser such as Dove sensitive, CeraVe or Cetaphil. Apply a gentle moisturizer such as CeraVe cream, Cetaphil restoraderm, or Aveeno all over at least twice a day, including immediately after bathing. Apply triamcinolone cream twice a day as needed to affected areas. documented in this encounterChillicothe [facility]03-01-2023 History of Present illness Narrative* Coco Payne MD - 11/24/2022 1:18 PM EST This is a consultation requested by Dr. Bahena for an allergy and immunology evaluation. My final recommendations will be communicated back to the requesting healthcare provider(s) by way of shared medical record or via [place] mail. Javier Bond is a 82 year old male who presents for further evaluation of generalized pruritus.He has a several year history of generalized itching. Symptoms have worsened since he was seen in the emergency room for edema of the feet and ankles a few weeks ago. Per patient, Lasix dose was increased but no new medications were prescribed at the time the emergency room visit. He also has scattered areas of mild erythema on his trunk and extremities. There are no clear triggers to his symptoms. Denies environmental changes in soaps, cleansers, detergents prior to the onset of symptoms. Denies starting new medications prior to the onset of symptoms. He bathes using Doves men soap soap. Does not use emollients. Applies triamcinolone cream 0.1% twice daily as needed with temporary relief of symptoms. Denies prior use of oral antihistamines for the symptoms. He is established with Dr. Mariee in dermatology. Denies concurrent symptoms including fevers, chills, night sweats and unintentional weight loss. Denies a history of thyroid, liver or kidney disease. Denies a history of connective tissue disease. Lungs were clear on chest x-ray completed in July,. On October 12, 2022, CBC with differential platelets and CMP were essentially normal. REVIEW OF SYSTEMS: SINUSITIS: The patient does not suffer from frequent sinopulmonary infections. ASTHMA: The patient has no history of asthma. ECZEMA: The patient has no history of eczema. URTICARIA:The patient does not have a history of urticaria and/or angioedema. GERD: Patient takes Protonix 40 mg daily. Denies significant GERD symptoms. INSECT STING: The patient does not have a history of systemic reaction to insect sting. FOOD ALLERGY:The patient denies history of food allergy. LATEX: The patient does not have a history of adverse reaction to latex. All other review of systems negative except for those listed above. PAST MEDICAL HISTORY Diagnosis Date Advance directive discussed with patient 10/04/2022 Discussed 09/2022 Benign intracranial hypertension 11/30/2002 Bilateral carotid artery stenosis 12/03/2020 US 08/2020: Rt 20-40%, Lt 0-20% 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 Chronic constipation 12/03/2020 Compression fracture of third lumbar vertebra (HCC) 11/05/2019 Degenerative lumbar spinal stenosis 12/15/2020 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/24/2022 S/p removal 08/2022 Essential hypertension, benign Family history of malignant neoplasm of gastrointestinal tract GERD (gastroesophageal reflux disease) 03/25/2009 Hiatal hernia 06/09/2022 History of compression fracture of spine 11/05/2019 Hypercalciuria, idiopathic 02/11/2020 Hypertrophy of prostate without urinary obstruction and other lower urinary tract symptoms (LUTS) Ilioinguinal neuralgia of left side 09/27/2019 Internal hemorrhoids without mention of complication Living will in place 10/04/2022 DPA: Peter Lumbar degenerative disc disease 09/14/2012 Lumbar radiculopathy 07/03/2020 Medicare annual wellness visit, subsequent 09/10/2021 Medicare Part B: Not able to find Last done: 09/10/2021 Nephrolithiasis 07/04/2007 Osteoporosis 01/28/2020 Other specified anemias 03/16/2022 Acute blood loss 11/2020 (post surgery) Peripheral edema 05/21/2022 Primary osteoarthritis of both first carpometacarpal joints 05/04/2018 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 09/09/2015 Rosacea 09/09/2015 S/P lumbar spinal fusion 12/15/2020 Sepsis due to Gram-negative organism with septic shock (HCC) 12/17/2020 Proteus mirabilis UTI Situational anxiety 06/27/2019 Situational depression 02/27/2021 Spondylosis of lumbar region without myelopathy or radiculopathy 03/10/2018 Thyroid nodule 12/03/[address] Zacarias Unstable gait 05/21/2021 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 05/11/2021 MEDICATIONS: Methenamine Hippurate (HIPREX) 1 gram tablet^Take 1 tablet by mouth twice daily.^Disp: 60 tablet^Rfl: 11 Ascorbic Acid (VITAMIN C) 1,000 mg tablet^Take 1 tablet by mouth twice daily.^Disp: 60 tablet^Rfl: 11 hydroCHLOROthiazide (HYDRODIURIL, ESIDRIX) 12.5 mg tablet^Take 1 tablet by mouth once daily.^Disp: 90 tablet^Rfl: 1 d-mannose powd^Take by mouth.^Disp: ^Rfl: quinapril (ACCUPRIL) 5 mg tablet^Take 1 tablet by mouth once daily.^Disp: 90 tablet^Rfl: 1 furosemide (LASIX) 20 mg tablet^Take 1 tablet by mouth once daily.^Disp: 90 tablet^Rfl: 1 tamsulosin (FLOMAX) 0.4 mg^Take 1 capsule by mouth once daily.^Disp: 90 capsule^Rfl: 1 finasteride (PROSCAR) 5 mg tablet^Take 1 tablet by mouth once daily.^Disp: 90 tablet^Rfl: 3 traZODone (DESYREL) 50 mg tablet^Take 0.5 tablets by mouth daily at bedtime.^Disp: 45 tablet^Rfl: 1 triamcinolone acetonide (KENALOG) 0.1 % cream^Apply to affected areas (rosacea) as directed by provider^Disp: ^Rfl: Docusate Sodium 250 mg capsule^Take 250 mg by mouth twice daily.^Disp: ^Rfl: atorvastatin (LIPITOR) 10 mg tablet^Take 1 tablet by mouth daily at bedtime. For cholesterol.^Disp:30 tablet^Rfl: [address] (PROTONIX) 40 mg tablet^Take 40 mg by mouth once daily.^Disp: ^Rfl: doxycycline 20 mg tablet^Take 20 mg by mouth twice daily.^Disp: ^Rfl: multivit-min/iron/folic acid/K (ADULTS MULTIVITAMIN ORAL)^Take 1 tablet by mouth once daily.^Disp: ^Rfl: MEDICAL SUPPLY^KAFO for right lower extremity.^Disp: 1 Device^Rfl: 1 acetaminophen (TYLENOL) 500 mg tablet^Take 2 tablets by mouth every 8 hours as needed for Pain or Fever.^Disp: ^Rfl: aspirin 81 mg chewable tablet^Take 1 tablet by mouth once daily.^Disp: ^Rfl: calcium carbonate 600 mg-cholecalciferol 400 units (CALCIUM 600 + D) 600 mg(1,500mg) -400 unit tab^Take 1 tablet by mouth twice daily.^Disp: ^Rfl: metroNIDAZOLE 0.75 % cream^Apply 1 application to affected area twice daily. Apply to areas of rosacea on the face^Disp: ^Rfl: ALLERGIES: Allergies As of Date: 11/24/2022 Allergen Noted Reaction CONTRAST DYE 03/24/2009 Hives FINACEA [AZELAIC ACID] 09/28/2017 Rash BACTRIM [SULFAMETHOXAZOLE-TRIMETH*06/02/2005 Unknown BEXTRA [VALDECOXIB] 06/02/2005 Unknown CARDURA [DOXAZOSIN MESYLATE] 06/02/2005 Unknown CIPROFLOXACIN 11/30/2002 Unknown CYTOTEC [MISOPROSTOL] 06/02/2005 Unknown FOSAMAX [ALENDRONATE SODIUM] 01/04/2020 Vomiting GABAPENTIN 01/28/2021 Mental Status Change KEFLEX [CEPHALEXIN] 08/13/2013 Rash KETOCONAZOLE 09/06/2008 Unknown LEVOFLOXACIN 01/26/2012 Other: See Comments MOBIC [MELOXICAM] 06/02/2005 Unknown NITROFURANTOIN 05/15/2021 Other: See Comments NSAIDS (NON-STEROIDAL ANTI-INFLAM*11/30/2002 Unknown RELAFEN [NABUMETONE] 06/02/2005 Unknown TERBINAFINE 10/02/2009 GI Upset Fully Assessed 11/24/2022 PAST SURGICAL HISTORY Procedure Laterality Date ARTHRP INTERPOS INTERCARPAL/METACARPAL JOINTS Left 05/24/2018 Left thumb CMC arthroplasty with LRTI and MCP pinning of left thumb COLONOSCOPY FLX DX W/COLLJ SPEC WHEN PFRMD 07/17/08, 2012 COLONOSCOPY FLX DX W/COLLJ SPEC WHEN PFRMD 03/28/2019 [facility] CYSTO.PANENDO 02/20/2021 stent removal EGD TRANSORAL BIOPSY SINGLE/MULTIPLE 12/26/2008 ESOPHAGOGASTRODUODENOSCOPY TRANSORAL DIAGNOSTIC 03/18/2020 EGD 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 PERIPHERAL NERVE BLOCK (MOD 59) Bilateral 11/01/2016, 03/28/2018 bilateral lumbar facet medial branch nerve block (l4-5, L5-S1) REMOVAL OF HEMORRHOID CLOT 06/2017 SPINAL FUSION,ANT,EA ADNL LEVEL 2001 TONSILLECTOMY HX Childhood XCAPSL CTRC RMVL INSJ IO LENS PROSTH W/O ECP Bilateral 08/25/2016 FAMILY HISTORY: Allergic rhinitis:no. Asthma: no. Eczema: no. Cystic fibrosis: no. Immunodeficiency: no. SOCIAL HISTORY: Employer And Job Title: [employer] (retired) Years Of Education Completed: 17 years Marital Status: to Peter with 2 children Social History Tobacco Use Smoking status: Former Types: Cigarettes Quit date: 06/24/1963 Years since quittin.4 Smokeless tobacco: Never Tobacco comments: quit in his 20's - smoked socially while in college ENVIRONMENTAL HISTORY: Lives in a house Age of home: 48 years Heating: forced hot air, gas Woodburning fireplace in the home: yes but never used Air conditioning: Central air Basement: Dry basement Shante: Ehdg-er-pubi carpeting Dust mite controls: Dust mite controls are not in place. Pets in the home: There are no pets in the home Outdoor animals: There are no outdoor animals Tobacco smoke: No exposure in the home. Physical Exam: GENERAL APPEARANCE:Well appearing, alert, in no acute distress, well-hydrated, well nourished. HEENT: NCAT. EYES: conjunctiva and sclera normal. EARS: External ears normal. Canals clear. TM's normal. NOSE/SINUS: Nares normal. Septum midline. Mucosa normal. No drainage or sinus tenderness. THROAT: no erythema NECK:neck supple, no adenopathy HEART:RRR with normal S1 and S2 ,no murmurs, no gallops, no rubs LUNGS: clear to auscultation bilaterally, no wheezes, rales or rhonchi ABDOMEN:soft, nontender, nondistended, without organomegaly or palpable masses EXTREMITIES:Extremities normal, No deformities, No skin discoloration, and No edema SKIN: Generalized dry skin. Scattered faint erythematous maculopapular lesions on the trunk and extremities. 1 open lesion involving the left medial ankle. Hyperpigmentation and mild edema involving the feet and ankles bilaterally ASSESSMENT/PLAN: 1.) Generalized pruritus: TSH, ESR and SPEP will be obtained to screen for underlying etiology of his symptoms. Recommend aggressive dry skin care as follows: -Bathe in warm, not hot water, using a gentle cleanser such as Dove sensitive, CeraVe or Cetaphil. -Apply a gentle moisturizer such as CeraVe cream, Cetaphil restoraderm, or Aveeno all over at leasttwice a day, including immediately after bathing. Continue to apply triamcinolone cream 0.1% twice a day as needed to affected areas as prescribed bydermatology. Start fexofenadine 180 mg once daily. If symptoms are not adequately controlled, fexofenadine may be increased to 180 mg twice daily. 2.) Discussed medication dosage, usage, side effects, and goals of treatment in detail. 3.) Follow-up in PRN - patient will return sooner should new symptoms or problems arise. Coco Payne MD documented in this encounterCh[facility]03[facility] Nurse Note* Rebecca Wilson RN - 11/24/2022 1:13 PM EST Patient here for consult for pruritis that started years ago. No hives, angioedema or facial swelling. Pruritis recently worse over the past 3-4 weeks since being admitted with feet swelling. Has no tried antihistamines but more recently started Kenalog from derm. documented in this encounterCh[facility]ic[facility]02-24-[facility]23 Nurse Note* Elsy Ramos RN - 11/19/2022 10:19 AM EST PVR: 118 ml documented in this encounterChillicothe [facility]02-24-2023 History of Present illness Narrative* Yun Coles MD - 11/19/2022 10:15 AM EST [facility] RECONSTRUCTIVE SURGERY HISTORY OF PRESENT ILLNESS: Javier Bond is a 82 year old F female here today for a follow up regarding recurrent UTI and asymptomatic bacteriuria. Last visit with me 07/03/21 IMPRESSION: Hx of urinary retention in the setting of recent back surgery and constipation Asymptomatic UTIs Hx of bladder calculus Hx of bladder diverticuli PLAN: -no intervention at this time -UTI is asymptomatic and PVR is negative -He may need intervention int he future and Video UDS should be considered prior to surgical intervention Patient does have evidence of chronic bladder obstruction and remodeling but is currently asymptomatic. Will defer any procedural/surgical intervention until active issues arise Rec continuing adequate hydration, frequent urination and constipation prevention Last seen by Yolanda Victoria 08/18/22 - 2 recent UTIs at that time, symptomatic. PVR 48ml. Planning D-mannose and Hipprex when able to take pills. No UTIs since. Today, he reports severe urinary frequency and urgency. Normal bowel function. On furosemide prn for LE edema. HISTORIES: PAST MEDICAL HISTORY PAST MEDICAL HISTORY Diagnosis Date Advance directive discussed with patient 10/04/2022 Discussed 09/2022 Benign intracranial hypertension 11/30/2002 Bilateral carotid artery stenosis 12/03/2020 US 08/2020: Rt 20-40%, Lt 0-20% 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 Chronic constipation 12/03/2020 Compression fracture of third lumbar vertebra (HCC) 11/05/2019 Degenerative lumbar spinal stenosis 12/15/2020 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/24/2022 S/p removal 08/2022 Essential hypertension, benign Family history of malignant neoplasm of gastrointestinal tract GERD (gastroesophageal reflux disease) 03/25/2009 Hiatal hernia 06/09/2022 History of compression fracture of spine 11/05/2019 Hypercalciuria, idiopathic 02/11/2020 Hypertrophy of prostate without urinary obstruction and other lower urinary tract symptoms (LUTS) Ilioinguinal neuralgia of left side 09/27/2019 Internal hemorrhoids without mention of complication Living will in place 10/04/2022 DPA: Peter Lumbar degenerative disc disease 09/14/2012 Lumbar radiculopathy 07/03/2020 Medicare annual wellness visit, subsequent 09/10/2021 Medicare Part B: Not able to find Last done: 09/10/2021 Nephrolithiasis 07/04/2007 Osteoporosis 01/28/2020 Other specified anemias 03/16/2022 Acute blood loss 11/2020 (post surgery) Peripheral edema 05/21/2022 Primary osteoarthritis of both first carpometacarpal joints 05/04/2018 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 09/09/2015 Rosacea 09/09/2015 S/P lumbar spinal fusion 12/15/2020 Sepsis due to Gram-negative organism with septic shock (HCC) 12/17/2020 Proteus mirabilis UTI Situational anxiety 06/27/2019 Situational depression 02/27/2021 Spondylosis of lumbar region without myelopathy or radiculopathy 03/10/2018 Thyroid nodule 12/03/[address] 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 PERIPHERAL NERVE BLOCK (MOD 59) Bilateral 11/01/2016, 03/28/2018 bilateral lumbar facet medial branch nerve block (l4-5, L5-S1) REMOVAL OF HEMORRHOID CLOT 06/2017 SPINAL FUSION,ANT,EA ADNL LEVEL 2001 TONSILLECTOMY HX Childhood XCAPSL CTRC RMVL INSJ IO LENS PROSTH W/O ECP Bilateral 08/25/2016 FAMILY HISTORY FAMILY HISTORY Problem Relation Age of Onset Cancer Mother lung Cancer Father colon Cancer Brother lymphoma SOCIAL HISTORY Social History Tobacco Use Smoking status: Former Types: Cigarettes Quit date: 06/24/1963 Years since quittin.4 Smokeless tobacco: Never Tobacco comments: quit in his 20's - smoked socially while in college Vaping Use Vaping Use: Never used Substance Use Topics Alcohol use: Yes Comment: 1-2 drinks in A MONTH Drug use: No MEDICATIONS: Current Outpatient Medications Medication Sig hydroCHLOROthiazide (HYDRODIURIL, ESIDRIX) 12.5 mg tablet Take 1 tablet by mouth once daily. d-mannose powd Take by mouth. quinapril (ACCUPRIL) 5 mg tablet Take 1 tablet by mouth once daily. furosemide (LASIX) 20 mg tablet Take 1 tablet by mouth once daily. tamsulosin (FLOMAX) 0.4 mg Take 1 capsule by mouth once daily. finasteride (PROSCAR) 5 mg tablet Take 1 tablet by mouth once daily. traZODone (DESYREL) 50 mg tablet Take 0.5 tablets by mouth daily at bedtime. triamcinolone acetonide (KENALOG) 0.1 % cream Apply to affected areas (rosacea) as directed by provider Docusate Sodium 250 mg capsule Take 250 mg by mouth twice daily. atorvastatin (LIPITOR) 10 mg tablet Take 1 tablet by mouth daily at bedtime. For cholesterol. pantoprazole DR (PROTONIX) 40 mg tablet Take 40 mg by mouth once daily. doxycycline 20 mg tablet Take 20 mg by mouth twice daily. multivit-min/iron/folic acid/K (ADULTS MULTIVITAMIN ORAL) Take 1 tablet by mouth once daily. MEDICAL SUPPLY KA for right lower extremity. acetaminophen (TYLENOL) 500 mg tablet Take 2 tablets by mouth every 8 hours as needed for Pain or Fever. aspirin 81 mg chewable tablet Take 1 tablet by mouth once daily. calcium carbonate 600 mg-cholecalciferol 400 units (CALCIUM 600 + D) 600 mg(1,500mg) -400 unit tab Take 1 tablet by mouth twice daily. metroNIDAZOLE 0.75 % cream Apply 1 application to affected area twice daily. Apply to areas of rosacea on the face Current Facility-Administered Medications Medication Dose Route Frequency perflutren lipid microspheres 1.3 mL in NaCl (PF) 0.9% 10 mL injection (DEFINITY) INTRAVENOUS DIRECTED PRN sodium chloride 0.9 % (flush) 10 mL (BD POSIFLUSH) 10 mL INTRAVENOUS DIRECTED PRN CURRENT ALLERGIES: Allergies As of Date: 11/19/2022 Allergen Noted Reaction CONTRAST DYE 03/24/2009 Hives FINACEA [AZELAIC ACID] 09/28/2017 Rash BACTRIM [SULFAMETHOXAZOLE-TRIMETH*06/02/2005 Unknown BEXTRA [VALDECOXIB] 06/02/2005 Unknown CARDURA [DOXAZOSIN MESYLATE] 06/02/2005 Unknown CIPROFLOXACIN 11/30/2002 Unknown CYTOTEC [MISOPROSTOL] 06/02/2005 Unknown FOSAMAX [ALENDRONATE SODIUM] 01/04/2020 Vomiting GABAPENTIN 01/28/2021 Mental Status Change KEFLEX [CEPHALEXIN] 08/13/2013 Rash KETOCONAZOLE 09/06/2008 Unknown LEVOFLOXACIN 01/26/2012 Other: See Comments MOBIC [MELOXICAM] 06/02/2005 Unknown NITROFURANTOIN 05/15/2021 Other: See Comments NSAIDS (NON-STEROIDAL ANTI-INFLAM*11/30/2002 Unknown RELAFEN [NABUMETONE] 06/02/2005 Unknown TERBINAFINE 10/02/2009 GI Upset Fully Assessed 10/12/2022 PHYSICAL EXAM: General: No acute distress, well appearing PVR: 118 mL via bladder US UA: Positive for: Blood and Leukest IMPRESSION: 82 yo M with BPH with bladder remodeling and diverticuli, incomplete emptying and recurrent UTIs, worsening urinary frequency - VUDS to better evaluation bladder function and diverticuli - Likely needs outlet procedure first to improve emptying but counseled that he will likely needs additional treatment for OAB symptoms - Start Hipprex with Vit C All questions and concerns were addressed. Yun Coles MD documented in this encounterChillic[facility]02-22-2023 NoteHNO ID: [id number] Author: Essence Castañeda, [facility]-[employer] Service: ? Author Type: Speech Language Pathologist Type: Progress Notes Filed: 11/17/2022 1:13 PM Note Text: Episode Visit Count: 4 Therapist That Will Accept/Oversee The Plan Of Care: Garry Start of Care Date: 09/28/22 Onset Date: 08/02/22 Plan of Care Certification Date: 09/28/22 Next Certification Due Date: 11/27/22 Patient Identified by Name and Date of : Yes [facility] SPEECH THERAPY TREATMENT NOTE IMPRESSION: Diet Recommendations: Thin Liquids IDDSI Level 0, Regular Consistency Swallowing Precautions Recommendations: Alternate bites and sips, Anti-Reflux precautions, Double swallows, Effortful swallow, Feed / Eat at a slow rate, Self-monitoring, Small Bite/Sip, Throat clear, reswallow, Reduced bite size, Chin tuck [employer] Recommendations: Discontinue Speech Therapy -The Speech-Language Pathology department remains available for further consultation as deemed warranted and/or indicated by the referring physician. Results and Recommendations Discussed With: Patient, Significant Other PLAN: Planned Interventions, Frequency, and Duration: Current Frequency: Discontinue Therapy Services SUBJECTIVE: Patient is accompanied to therapy by -Recently at ED for leg swelling, says they followed up with PCP -Patient and report increased ability to complete HEP; deny continued dysphagia OBJECTIVE: MEASURES WITH LEVEL OF FUNCTION: Professional training and skilled instructions were provided as follows: Speech production skills (Levels: Conversation ) Swallowing skills -Patient and in agreement to discharge from ST services as highest practical level has been achieved -Completion of voice/respiratory exercises with cues for slow rate of speech and breath coordination -Review of compensatory swallow strategies; patient denies dysphagia and is currently tolerating diet at home -Education with teach-back provided on continued carryover of voice/respiratory exercises to support swallow muscles and adequate voicing -The Speech-Language Pathology department remains available for further consultation as deemed warranted and/or indicated by the referring physician. TREATMENT: Swallow / Dysphagia (11565): Skilled Intervention: Instructed patient / caregiver on recommended compensatory strategies to maximize safety with oral intake while maintaining nutrition, hydration and medication stability. , Provided written instruction for home exercise program to facilitate follow through with proper performance. Current Home Program: Continue HEP; follow-up with PCP if change in condition Billing: Dysphagia Treatment (57614) Total time / Length of visit: 50 minutes Essence Castañeda CCC-SLPFirelands Regional Medical [id number] History of Present illness Narrative* Essence Castañeda CCC-[employer] - 11/17/2022 12:18 PM EST Episode Visit Count: 4 Therapist That Will Accept/Oversee The Plan Of Care: Garry Start of Care Date: 09/28/22 Onset Date: 08/02/22 Plan of Care Certification Date: 09/28/22 Next Certification Due Date: 11/27/22 Patient Identified by Name and Date of : Yes [facility] SPEECH THERAPY TREATMENT NOTE IMPRESSION: Diet Recommendations: Thin Liquids IDDSI Level 0, Regular Consistency Swallowing Precautions Recommendations: Alternate bites and sips, Anti-Reflux precautions, Double swallows, Effortful swallow, Feed / Eat at a slow rate, Self-monitoring, Small Bite/Sip, Throat clear, reswallow, Reduced bite size, Chin tuck [employer] Recommendations: Discontinue Speech Therapy -The Speech-Language Pathology department remains available for further consultation as deemed warranted and/or indicated by the referring physician. Results and Recommendations Discussed With: Patient, Significant Other PLAN: Planned Interventions, Frequency, and Duration: Current Frequency: Discontinue Therapy Services SUBJECTIVE: Patient is accompanied to therapy by -Recently at ED for leg swelling, says they followed up with PCP -Patient and report increased ability to complete HEP; deny continued dysphagia OBJECTIVE: MEASURES WITH LEVEL OF FUNCTION: Professional training and skilled instructions were provided as follows: Speech production skills (Levels: Conversation ) Swallowing skills -Patient and in agreement to discharge from ST services as highest practical level has been achieved -Completion of voice/respiratory exercises with cues for slow rate of speech and breath coordination -Review of compensatory swallow strategies; patient denies dysphagia and is currently tolerating diet at home -Education with teach-back provided on continued carryover of voice/respiratory exercises to support swallow muscles and adequate voicing -The Speech-Language Pathology department remains available for further consultation as deemed warranted and/or indicated by the referring physician. TREATMENT: Swallow / Dysphagia (18910): Skilled Intervention: Instructed patient / caregiver on recommended compensatory strategies to maximize safety with oral intake while maintaining nutrition, hydration andmedication stability. , Provided written instruction for home exercise program to facilitate follow through with proper performance. Current Home Program: Continue HEP; follow-up with PCP if change in condition Billing: Dysphagia Treatment ([id number]) Total time / Length of visit: 50 minutes Essence Castañeda CCC-[employer]BER documented in this encounterChillicothe [facility]02-15-2023 Miscellaneous Notes* Telephone Encounter - Yash Monroe MA - 11/10/2022 5:37 PM EST Created phone encounter for patient to be scheduled with Dr. Coco Payne in [place]. Yash Monroe MA * Telephone Encounter - Francisco Bahena MD - 11/10/2022 3:03 PM EST Consult to allergy placed. Please assist. documented in this encounterChillicothe Hospital02-13-2023 Miscellaneous Notes* Telephone Encounter - Yash Monroe MA - 11/08/2022 1:40 PM EST Patient notified and voiced understanding. Yash Monroe MA Faxed information to [facility] er Yash Monroe MA documented in this encounterChillicothe Hospital02-09-2023 NoteHNO ID: [id number] Author: Essence Castañeda [facility] Service: ? Author Type: Speech Language Pathologist Type: Progress Notes Filed: 11/04/2022 3:43 PM Note Text: Episode Visit Count: 3 Therapist That Will Accept/Oversee The Plan Of Care: Garry Start of Care Date: 09/28/22 Onset Date: 08/02/22 Plan of Care Certification Date: 09/28/22 Next Certification Due Date: 11/27/22 Patient Identified by Name and Date of : Yes [facility] SPEECH THERAPY PROGRESS REPORT PLAN OF CARE UPDATE: Impression: Swallow Deficits Identified / Suspected: Oropharyngeal dysphagia, Concern for possible esophageal impairment Progress Toward Goals: Progressing as expected Functional gains: Increased intelligibility of speech, Increased use of compensatory strategies, Reduced signs and symptoms of oropharyngeal phase dysphagia , and Increased knowledge and awareness of the need and benefit of completing home exercises to maximize outcomes. Goals for Episode of Care Updated: 11/04/2022 Updated 11/04/22 Goals for Episode of Care: created on 09/28/2022 through 11/27/22 SWALLOWING GOALS In Progress-Increase laryngeal/pharyngeal function through completion of oropharyngeal strengthening and airway protection exercises in order to clear oral/pharyngeal residuals so that the patient may eliminate aspiration and improve airway protection during oral intake with 90% effectiveness. In Progress-Demonstrate knowledge and use of compensatory swallowing strategies in order to reduce signs/symptoms of possible aspiration with a Dental Soft Diet and Thin Liquids IDDSI Level 0 within 100% of trials. All goals to target the patient's overall ability to safely consume the highest appropriate diet level RECOMMENDATION: Patient and/or caregiver demonstrate a solid understanding of results, recommendations, goals and plan of care. Patient and : agreed with aforementioned. Diet Recommendations: Thin Liquids IDDSI Level 0, Regular Consistency Swallowing Precautions Recommendations: Alternate bites and sips, Anti-Reflux precautions, Double swallows, Effortful swallow, Feed / Eat at a slow rate, Self-monitoring, Small Bite/Sip, Throat clear, reswallow, Reduced bite size, Chin tuck [employer] MEMBER Recommendations: Diet, Swallowing Precautions Outpatient Therapy Planned Interventions, Frequency, and Duration: Planned Treatment Interventions: Dysphagia Reduction Training (50580), Patient / Caregiver Education/ Training, Dysphagia Treatment (98300) Current Frequency: 1x every other week Duration: 8 weeks PLAN FOR NEXT VISIT: dysphagia strategies, orpharyngeal strengthening, airway protection, sustained phonation/breath support SUBJECTIVE: -Continued concerns regarding vocal function and voicing; patient reports decreased coughing with PO intake but state voice gets rough/weak throughout day OBJECTIVE MEASURES WITH LEVEL OF FUNCTION: Current Status Oral Hygiene: Clear, moist oral cavity Current Feeding Method: Oral Current Diet Textures: Thin Liquids IDDSI Level 0, Regular Consistency Current Level Of Communication: Verbal Speech/Voice/Language Vocal Quality: Reduced Vocal Intensity, Glottal Tolbert Vocal Intensity: Decreased Swallow Position Of Patient During Assessment: Unsupported Sitting Consistencies Presented: Thin Liquids IDDSI Level 0, Pureed IDDSI Level 4 Response to Consistencies Presented: Decreased coughing this date; consumes applesauce requiring cues for re-swallow and reduced bolus size. No coughing observed with thin liquid by cup or bites of aaplesauce Compensatory Strategies Utilized During Assessment: Alternate bites and sips, Anti-Reflux precautions, Chin tuck, Double swallows, Effortful swallow, Feed / Eat at a slow rate, Small Bite/Sip, Self-monitoring, Voice checks, Throat clear, reswallow -Completion of sustained phonation exercises -Diaphragmatic breathing to increase breath support for speech and swallow -Completion of airway protection exercises -Education provided on self-monitoring speech and breathing -Continued education on utilization of compensatory swallow strategies TREATMENT: Swallow / Dysphagia (43697): Skilled Intervention: Provided education related to a typical swallowing mechanism in a compare and contrast manner compared to this patient's current skill set. , Educated and advised patient / caregiver on texture and liquid consistency recommendations., Provided written instruction for home exercise program to facilitate follow through with proper performance. Current Home Program: breath support for speech/swallow, vocal adduction exercises; increase carryover of voice and dysphagia strategies Billing: Dysphagia Treatment (98462) Total time / Length of visit: 60 minutes Essence Castañeda CCC-SLPFirelands Regional Medical [id number] Miscellaneous Notes* Telephone Encounter - Francisco Bahena MD - 10/29/2022 9:02 PM EST The following approved medication requests have been transmitted electronically. Requested Prescriptions Signed Prescriptions Disp Refills hydroCHLOROthiazide (HYDRODIURIL, ESIDRIX) 12.5 mg tablet 90 tablet 1 Sig: Take 1 tablet by mouth once daily. Authorizing Provider: FRANCISCO BAHENA MD * Telephone Encounter - Any Lainez LPN - 10/29/2022 4:06 PM EST Patient phones requesting refills as follows: Requested Prescriptions Pending Prescriptions Disp Refills hydroCHLOROthiazide (HYDRODIURIL, ESIDRIX) 12.5 mg tablet 90 tablet 1 Sig: Take 1 tablet by mouth once daily. CHRISTA 10/12/22 NOV 04/05/23 Please review and advise. Any Lainez LPN documented in this encounterChillicothe Hospital01-23-2023 NoteHNO ID: [id number] Author: Essence Castañeda CCC-FILM CREW MEMBER Service: ? Author Type: Speech Language Pathologist Type: Progress Notes Filed: 10/18/2022 1:07 PM Note Text: Episode Visit Count: 2 Therapist That Will Accept/Oversee The Plan Of Care: Garry Start of Care Date: 09/28/22 Onset Date: 08/02/22 Plan of Care Certification Date: 09/28/22 Next Certification Due Date: 11/27/22 Patient Identified by Name and Date of : Yes [facility] SPEECH THERAPY TREATMENT NOTE IMPRESSION: Swallow Deficits Identified / Suspected: Oropharyngeal dysphagia;Concern for possible esophageal impairment Diet Recommendations: Thin Liquids IDDSI Level 0;Dental Soft;Medications whole in puree (pudding/applesauce) Swallowing Precautions Recommendations: Alternate bites and sips;Anti-Reflux precautions;Double swallows;Effortful swallow;Feed / Eat at a slow rate;Self-monitoring;Small Bite/Sip;Throat clear, reswallow;Reduced bite size;Chin tuck [employer] MEMBER Recommendations: Diet;Swallowing Precautions Results and Recommendations Discussed With: Patient;Significant Other PLAN: Planned Interventions, Frequency, and Duration: Planned Treatment Interventions: Dysphagia Reduction Training (50184);Patient / Caregiver Education/ Training;Dysphagia Treatment (24056) Current Frequency: 1x every other week Duration: 8 weeks PLAN FOR NEXT VISIT: dysphagia strategies, orpharyngeal strengthening, airway protection SUBJECTIVE: Patient is reporting increased vocal quality, decreased throat clearing. -ENT appointment 10/04/22 revealed complete glottic closure -Reports swallow and vocal function have improved OBJECTIVE: MEASURES WITH LEVEL OF FUNCTION: Professional training and skilled instructions were provided as follows: Speech production skills (Levels: Conversation ) Swallowing skills -Completion of airway protection exercises -Sustained phonation 16 seconds -Veronica completed x10 -Education provided on continued carryover of compensatory swallow strategies Swallow Position Of Patient During Assessment: Unsupported Sitting Consistencies Presented: Thin Liquids IDDSI Level 0;Pureed IDDSI Level 4 Response to Consistencies Presented: -Consumes thin liquid with utilization of chin tuck following initial cues; -adequate oral control observed with thin and puree trials -occasional throat clear following trials whihc is inconsistent (decreased throat clearing versus previous session). Compensatory Strategies Utilized During Assessment: Alternate bites and sips;Anti-Reflux precautions;Chin tuck;Double swallows;Effortful swallow;Feed / Eat at a slow rate;Small Bite/Sip;Self-monitoring;Voice checks;Throat clear, reswallow Speech/Voice/Language Speech Production: Within Functional Limits Except Dysarthria: Impaired Voice Quality;Decreased Breath Support (susained phonation time) Voice Assessment: No Vocal Quality: Vocal Intensity;Hoarse (Hoarse at times but improved vocal quality; increased phonation/intensity) Vocal Intensity: Decreased (Increased intensity versus previous session) TREATMENT: Swallow / Dysphagia (09644): Skilled Intervention: Demonstrated, instructed, modeled and provided educational handout(s) for hyolaryngeal elevation and excursion manuevers ., Instruction provided in various swallowing manuevers which included: Veronica Maneuver Current Home Program: dysphagia exercises, vocal adduction exercises Billing: Dysphagia Treatment (92686) Total time / Length of visit: 60 minutes Essence Castañeda, [facility]01-20-2023 Miscellaneous Notes* Telephone Encounter - Dinah Fletcher RN - 10/15/2022 4:28 PM EST Hello, There should be no reason why this antibiotic would not be ok per urology. However I would only treat for a UTI if he is symptomatic and the culture comes back positive. Liana Tamayo, DO Patient given the above message and verbalizes understanding. * Telephone Encounter - Maile Martinez - 10/15/2022 3:27 PM EST Patient was prescribed amoxicillin-clavulanic acid (AUGMENTIN) 875-125 mg per tablet by the primarycare doctor. Is it okay by dr coles for patient to take this? documented in this encounterChillicothe [facility]01-20-2023 Miscellaneous Notes* Telephone Encounter - Melisa Clemons RN - 10/15/2022 8:44 AM EST Phoned patient and spoke with . Given provider's message below with verbalized understanding. agreeable and states she will check with patient's urologist to see if this AB is ok for patientto take. * Telephone Encounter - Francisco Bahena MD - 10/14/2022 8:07 PM EST Let patient know the blood test for syphilis was negative. His Mg, B12, thyroid lab, electrolytes, kidney functions, blood sugar test, Lipid panel and liver functions were all ok. His urine shows a possible infection and sent in a round of antibiotics to treat. His CBC was ok and his anemia is improved and almost back to normal. The following approved medication requests have been transmitted electronically. Requested Prescriptions Signed Prescriptions Disp Refills amoxicillin-clavulanic acid (AUGMENTIN) 875-125 mg per tablet 14 tablet 0 Sig: Take 1 tablet by mouth twice daily for 7 days. Authorizing Provider: FRANCISCO BAHENA MD documented in this encounterChillicothe Hospital01-17-2023 Instructions* Patient Instructions* Trinidad Roque APRN.CNP - 10/12/2022 1:10 PM EST Complete labs Follow up as scheduled documented in this encounterChillicothe Hospital01-17-2023 History of Present illness Narrative* Trinidad Roque APRN.CNP - 10/12/2022 1:06 PM EST Chief Complaint Patient presents with: Memory Loss HPI Javier Bond is a 81 year old male who presents here today for Above Complaints.. Patient presents for memory concerns. Patient was seen 10/14/[address] Bahena for his annual exam and concerns regarding memory were brought up by his . Patient here today for MMSE. Patient's wifestates they have not had labs completed yet as lab was closed when they left appointment on 10/04. Past medical history, appointments, medications, allergies reviewed. 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/24/2022 S/p removal 08/2022 Essential hypertension, benign Family history of malignant neoplasm of gastrointestinal tract GERD (gastroesophageal reflux disease) 03/25/2009 Hiatal hernia 06/09/2022 History of compression fracture of spine 11/05/2019 Hypercalciuria, idiopathic 02/11/2020 Hypertrophy of prostate without urinary obstruction and other lower urinary tract symptoms (LUTS) Ilioinguinal neuralgia of left side 09/27/2019 Internal hemorrhoids without mention of complication Living will in place 10/04/2022 DPA: Peter Lumbar degenerative disc disease 09/14/2012 Lumbar radiculopathy 07/03/2020 Medicare annual wellness visit, subsequent 09/10/2021 Medicare Part B: Not able to find Last done: 09/10/2021 Nephrolithiasis 07/04/2007 Osteoporosis 01/28/2020 Other specified anemias 03/16/2022 Acute blood loss 11/2020 (post surgery) Peripheral edema 05/21/2022 Primary osteoarthritis of both first carpometacarpal joints 05/04/2018 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 09/09/2015 Rosacea 09/09/2015 S/P lumbar spinal fusion 12/15/2020 Sepsis due to Gram-negative organism with septic shock (HCC) 12/17/2020 Proteus mirabilis UTI Situational anxiety 06/27/2019 Situational depression 02/27/2021 Spondylosis of lumbar region without myelopathy or radiculopathy 03/10/2018 Thyroid nodule 12/03/[address] Zacarias Unstable gait 05/21/2021 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 05/11/2021 Previous Surgical History PAST SURGICAL HISTORY Procedure Laterality Date ARTHRP INTERPOS INTERCARPAL/METACARPAL JOINTS Left 05/24/2018 Left thumb CMC arthroplasty with LRTI and MCP pinning of left thumb COLONOSCOPY FLX DX W/COLLJ SPEC WHEN PFRMD 07/17/08, 2012 COLONOSCOPY FLX DX W/COLLJ SPEC WHEN PFRMD 03/28/2019 Ariel Alvarado CYSTO.PANENDO 02/20/2021 stent removal EGD TRANSORAL BIOPSY SINGLE/MULTIPLE 12/26/2008 ESOPHAGOGASTRODUODENOSCOPY TRANSORAL DIAGNOSTIC 03/18/2020 EGD EXCISION OF CYST squamous cell on head LAP, REVISION DEMETRIO FUNDOPLASTY 03/11/2009 hiatal hernia LAPAROSCOPY SURG CHOLECYSTECTOMY 03/11/2009 LITHOTRIPSY XTRCORP SHOCK WAVE 1982,12/07/2006, 2011 NEPHROLITHOTOMY REMOVAL STAGE 1 Right 11/28/2006, 2011 (R) ureteroscopic OPEN REPAIR OF ROTATOR CUFF ACUTE Right 12/06/2002 OPEN REPAIR OF ROTATOR CUFF ACUTE Left 08/26/2004 PAST SURGICAL HISTORY OF 08/2022 re-moval of esophageal diverticulum. PERIPHERAL NERVE BLOCK (MOD 59) Bilateral 11/01/2016, 03/28/2018 bilateral lumbar facet medial branch nerve block (l4-5, L5-S1) REMOVAL OF HEMORRHOID CLOT 06/2017 SPINAL FUSION,ANT,EA ADNL LEVEL 2001 TONSILLECTOMY HX Childhood XCAPSL CTRC RMVL INSJ IO LENS PROSTH W/O ECP Bilateral 08/25/2016 Family History FAMILY HISTORY Problem Relation Age of Onset Cancer Mother lung Cancer Father colon Cancer Brother lymphoma Patient Allergies ALLERGIES Allergen Reactions Contrast Dye Hives Finacea [Azelaic Ac* Rash Bactrim [Sulfametho* Unknown Bextra [Valdecoxib] Unknown Cardura [Doxazosin * Unknown Ciprofloxacin Unknown Cytotec [Misoprosto* Unknown Fosamax [Alendronat* Vomiting heartburn, vomiting Gabapentin Mental Status Change Keflex [Cephalexin] Rash Ketoconazole Unknown Levofloxacin Other: See Comments Pseudomonas Mobic [Meloxicam] Unknown Nitrofurantoin Other: See Comments Per , "he didn't feel well" - unsure of reaction Nsaids (Non-Steroid* Unknown GI UPSET Relafen [Nabumetone] Unknown Terbinafine GI Upset Current Medications Current Outpatient Medications on File Prior to Visit Medication Sig d-mannose powd Take by mouth. quinapril (ACCUPRIL) 5 mg tablet Take 1 tablet by mouth once daily. hydroCHLOROthiazide (HYDRODIURIL, ESIDRIX) 12.5 mg tablet Take 1 tablet by mouth once daily. furosemide (LASIX) 20 mg tablet Take 1 tablet by mouth once daily. tamsulosin (FLOMAX) 0.4 mg Take 1 capsule by mouth once daily. finasteride (PROSCAR) 5 mg tablet Take 1 tablet by mouth once daily. traZODone (DESYREL) 50 mg tablet Take 0.5 tablets by mouth daily at bedtime. triamcinolone acetonide (KENALOG) 0.1 % cream Apply to affected areas (rosacea) as directed by provider Docusate Sodium 250 mg capsule Take 250 mg by mouth twice daily. atorvastatin (LIPITOR) 10 mg tablet Take 1 tablet by mouth daily at bedtime. For cholesterol. pantoprazole DR (PROTONIX) 40 mg tablet Take 40 mg by mouth once daily. doxycycline 20 mg tablet Take 20 mg by mouth twice daily. multivit-min/iron/folic acid/K (ADULTS MULTIVITAMIN ORAL) Take 1 tablet by mouth once daily. MEDICAL SUPPLY KAFO for right lower extremity. acetaminophen (TYLENOL) 500 mg tablet Take 2 tablets by mouth every 8 hours as needed for Pain or Fever. aspirin 81 mg chewable tablet Take 1 tablet by mouth once daily. calcium carbonate 600 mg-cholecalciferol 400 units (CALCIUM 600 + D) 600 mg(1,500mg) -400 unit tab Take 1 tablet by mouth twice daily. metroNIDAZOLE 0.75 % cream Apply 1 application to affected area twice daily. Apply to areas of rosacea on the face Current Facility-Administered Medications on File Prior to Visit Medication perflutren lipid microspheres 1.3 mL in NaCl (PF) 0.9% 10 mL injection (DEFINITY) sodium chloride 0.9 % (flush) 10 mL (BD POSIFLUSH) Social History Social History Tobacco Use Smoking status: Former Types: Cigarettes Quit date: 06/24/1963 Years since quittin.3 Smokeless tobacco: Never Tobacco comments: quit in his 20's - smoked socially while in college Vaping Use Vaping Use: Never used Substance Use Topics Alcohol use: Yes Comment: 1-2 drinks in A MONTH Drug use: No Review of Symptoms REVIEW OF SYSTEMS SEE HPI EXAM: BP 128/76 Pulse 82 Resp 14 Wt 75.8 kg (167 lb) SpO2 100% BMI 22.65 kg/m General Appearance: Well appearing, alert, in no acute distress, well-hydrated, well nourished.. Health Maintenance List ANNUAL PCP TEAM CHRONIC DISEASE VISIT due on 10/04/2023 BP CONTROLLED (<130/80) due on 10/04/2023 DIABETES SCREEN due on 08/26/2025 DTAP,TDAP,TD(4 - Td or Tdap) due on 03/13/2028 INFLUENZA Completed ADVANCE DIRECTIVE DISCUSSION Completed SHINGRIX VACCINE Completed COVID-19 VACCINE Completed PNEUMOCOCCAL: 65+ Completed MINI-MENTAL STATE EXAMINATION (MMSE) Make the patient comfortable and establish rapport. Ask questions in the order listed. Total possible score is 30. ORIENTATION 1. What is the (year) (season) (date) (day) (month)? Max score=5 Patient's score=5 2. Where are we? (state) (county) (town or city) (hospital) (floor)? Max score=5 Patient's score=5 REGISTRATION Ask the patient if you may test his/her memory. Then say the names of 3 unrelated objects, clearly and slowly, about one second for each (eg, apple, table, kunal). After you have said all 3, ask him/her to repeat them. This first repetition determines the score(0-3), but keep saying them until he/she can repeat all 3, up to 6 trials. Max score=3 Patient's score=3 ATTENTION AND CALCULATION Ask the patient to begin with 100 and count backwards by 7. Stop after 5 subtractions (93, 86, 79, 72, 65). Score the total number of correct answers. If the patient cannot or will not perform the serial 7s task, ask him/her to spell the word WORLD backwards. The score is the number of letters in the correct order (eg, DLROW=5; DLRW=4; DLORW, DLW=3; OW=2; DRLWO=1). Max score=5 Patient's score=5 RECALL Ask the patient to recall the 3 items repeated above (eg, apple, table, kunal). Max score=3 Patient's score=2 LANGUAGE Naming: Show the patient a wristwatch and ask him/her what it is. Repeat for pencil. Max score=2 Patient's score=2 Repetition: Ask the patient to repeat the phrase No ifs, ands, or buts: after you. Max score=1 Patient's score=1 3-Stage Command: Give the patient a piece of blank paper and ask him/her to take a piece of paper in your right hand, fold it in half, put it on the floor. Score 1 point for each part correctly executed. Max score=3 Patient's score=3 Reading: On a blank piece of paper, print the sentence CLOSE YOUR EYES in letters large enough for the patient to see clearly. Ask him/her to read it and do what it says. Score 1 point only if he/sheactually closes his/her eyes. Max score=1 Patient's score=1 Writing: Give the patient a blank piece of paper and ask him/her to write a sentence. Do not dictate a sentence; it is to be written spontaneously. It must contain a subject and verb and be sensible.Correct grammar and punctuation are not necessary. Max score=1 Patient's score=1 Copying: Ask the patient to copy the figure of intersecting pentagons exactly as it is. All 10 angles must be present and 2 must intersect to form a 4-sided figure to score 1 point. Tremor and rotation are ignored. Max score=1 Patient's score=1 MAXIMUM TOTAL SCORE = 30 TOTAL SCORE = 29/30 Suggested guideline for determining the severity of cognitive impairment: Mild: MMSE>21 Moderate: MMSE 10-20 Severe: MMSE<9 Expected decline in MMSE scores in untreated mild to moderate Alzheimer's patient is 2 to 4 points per year. *Adapted from Folstein et al.1 and Lexx and Folstein2. (c) 1974, 1997 [employer] Used withpermission. References: 1. Folstein MF, Folstein SE, [place]. Mini-Mental State: a practical method for grading the cognitive state of patients for the clinician. J Psychiatr Res. 1975; 12:189-198. 2. JR Lexx, Folstein MF, Mini-Mental State Examination (MMSE). Psychopharm Bull. 1988;24:689-692. 3. Russell JT, Princess FJ, Wesley RD, Renny A, Paola F. Neuropsychological function in Alzheimer's disease: pattern of impairment and rates of progression. Arch Neurol. 1988;45:263-268. 4. Yue JA, Dinora B,Hernan S-P, Julee [place]. Predictors of cognitive and functional progression in patients with probable Alzheimer's disease. Neurology. 1992;42:1140-6726. ASSESSMENT/PLAN: 1. Memory change - ICD9: 780.93, ICD10: R41.3 -MMSE completed -Labs pending, patient completing lab draw today. Trinidad Roque APRN.TIME SIGNAL WIRER documented in this encounterChillic[facility]01-09-2023 Instructions* Patient Instructions* Francisco Bahena MD - 10/04/2022 4:25 PM EST Please bring in copies of living will and durable power of mergers and acquisitions attorney for health care. 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 Chronic constipation 12/03/2020 Compression fracture of third lumbar vertebra (HCC) 11/05/2019 Degenerative lumbar spinal stenosis 12/15/2020 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/28/2017 Elevated blood sugar 08/31/2021 Episodic cluster headache, not intractable 09/09/2015 Essential hypertension, benign Family history of malignant neoplasm of gastrointestinal tract GERD (gastroesophageal reflux disease) 03/25/2009 Hypercalciuria, idiopathic 02/11/2020 Hypertrophy of prostate without urinary obstruction and other lower urinary tract symptoms (LUTS) Ilioinguinal neuralgia of left side 09/27/2019 Internal hemorrhoids without mention of complication Lumbar degenerative disc disease 09/14/2012 Lumbar radiculopathy 07/03/2020 Nephrolithiasis 07/04/2007 Osteoporosis 01/28/2020 Primary osteoarthritis of both first carpometacarpal joints 05/04/2018 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 09/09/2015 Rosacea 09/09/2015 S/P lumbar spinal fusion 12/15/2020 Sepsis due to Gram-negative organism with septic shock (HCC) 12/17/2020 Proteus mirabilis UTI Situational anxiety 06/27/2019 Situational depression 02/27/2021 Spondylosis of lumbar region without myelopathy or radiculopathy 03/10/2018 Thyroid nodule 12/03/[address] Zacarias PAST SURGICAL HISTORY PAST SURGICAL HISTORY Procedure Laterality Date COLONOSCOP W/ OR W/O [facility] SPEC 07/17/08, 2012 COLONOSCOP W/ OR W/O [facility] SPEC 03/28/2019 [facility] CYSTO.PANENDO 02/20/2021 stent removal EGD W/O BRSH SPECIMEN W/BX 12/26/08 EGD W/O OR W/BRUSH/WASH 03/18/2020 EGD ESWL 1982,12/07/2006, 2011 EXCISION OF CYST squamous cell on head LAP, REVISION DEMETRIO FUNDOPLASTY 03/11/2009 hiatal hernia LAPAROSCOPIC CHOLEYCYSTECTOMY 03/11/09 PERIPHERAL NERVE BLOCK (MOD 59) Bilateral 11/01/2016, 03/28/2018 bilateral lumbar facet medial branch nerve block (l4-5, L5-S1) REMOVAL OF HEMORRHOID CLOT 06/2017 REMOVAL OF KIDNEY STONE Right 11/28/2006, 2011 (R) ureteroscopic REMV CATARACT EXTRACAP,INSERT LENS Bilateral 08/25/2016 REPAIR INTERCARP/CARP-METACARP JT Left 05/24/2018 Left thumb CMC arthroplasty with LRTI and MCP pinning of left thumb REPAIR ROTATOR CUFF,ACUTE Right 12/06/2002 REPAIR ROTATOR CUFF,ACUTE Left 08/26/2004 TONSILLECTOMY HX Childhood ALLERGIES: Contrast Dye, Finacea [Azelaic Acid], Nitrofurantoin, Bactrim [Sulfamethoxazole- Trimethoprim], Bextra [Valdecoxib], Cardura [Doxazosin Mesylate], Ciprofloxacin, Cytotec [Misoprostol], Fosamax [Alendronate Sodium], Gabapentin, Keflex [Cephalexin], Ketoconazole, Levofloxacin, Mobic [Meloxicam], Nsaids (Non- Steroidal Anti-Inflammatory Drug), Relafen [Nabumetone], and Terbinafine Medications reviewed: Yes FAMILY HISTORY FAMILY HISTORY Problem Relation Age of Onset Cancer Mother lung Cancer Father colon Cancer Brother lymphoma SOCIAL HISTORY: SOCIAL HISTORY Social History Tobacco Use Smoking status: Former Smoker Quit date: 06/24/1963 Years since quittin.2 Smokeless tobacco: Never Used Tobacco comment: quit in his 20's - smoked socially while in college Vaping Use Vaping Use: Never used Substance Use Topics Alcohol use: Yes Comment: 1-2 drinks in A MONTH Drug use: No Javier denies regular aerobic exercise. He watches his diet for sodium, low fat and low cholesterol most of the time. List of current specialists seen: Dr. Baeza (spine), Dr. Coles (urology for stones), Dr. Zacarias (Endo) End of Live Planning discussed including patients advanced directive wishes: Yes I am willing to follow Javier's advanced directives. PHQ-2 / Depression screen Depression Screening 08/12/2021 01/16/2022 07/13/2022 10/04/2022 PHQ-2 Score 0 0 0 1 PHQ-9 Score 0 0 0 - PHOEBE-2 Total Score - - - - Depression screening tool completed and reviewed. Based on score and interview, patient is not at risk for depression. Screening tool discussed with patient, and I recommended no further interventionat this time. Functional Ability/Safety Screen 1. Was the patient's timed Up and Go test unsteady or longer than 30 seconds? No 2. Does the patient need help with the phone, transportation, shopping,preparing meals, housework, laundry, medications or managing money? pt can bath himself and get dress. right now igificant otherdrives because he can not always feel pressure he puts on the brake. 3. Does your home have rugs in the hallway, lack of grab bars in the bathroom, lack of handrails onthe stairs or have poor lighting? No Hearing Evaluation: hard of hearing PHYSICAL EXAM BP 104/62 (BP Site: Left Arm, BP Position: Sitting, BP Cuff Size: Regular Adult) Pulse 76 Resp 16 Ht 182.9 cm (6') Wt 74.4 kg (164 lb) BMI 22.24 kg/m Alert and oriented X 3: YES Body mass index is 22.24 kg/m . Visual acuity: seeing optho See below ASSESSMENT/PLAN: 81 year old male The following prevention plan was discussed during the office visit and provided to the patient: See below Chief Complaint Patient presents with: Medicare Wellness Exam HPI Javier Bond is a 81 year old male who presents here today for Medicare Annual Visit. Patient with hx of HTN, GERD, BPH, chronic back pain, depression, unstable gait, osteoporosis and those as reviewed and addressed below. Has been doing ok. Has the leg numbness and general weakness form his low back disease but gets around well with his walker. Otherwise no new issues or concerns Past medical history, appointments, medications, allergies reviewed. 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 Chronic constipation 12/03/2020 Compression fracture of third lumbar vertebra (HCC) 11/05/2019 Degenerative lumbar spinal stenosis 12/15/2020 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/28/2017 Elevated blood sugar 08/31/2021 Episodic cluster headache, not intractable 09/09/2015 Essential hypertension, benign Family history of malignant neoplasm of gastrointestinal tract GERD (gastroesophageal reflux disease) 03/25/2009 History of compression fracture of spine 11/05/2019 Hypercalciuria, idiopathic 02/11/2020 Hypertrophy of prostate without urinary obstruction and other lower urinary tract symptoms (LUTS) Ilioinguinal neuralgia of left side 09/27/2019 Internal hemorrhoids without mention of complication Lumbar degenerative disc disease 09/14/2012 Lumbar radiculopathy 07/03/2020 Medicare annual wellness visit, subsequent 09/10/2021 Medicare Part B: Not able to find Last done: 09/10/2021 Nephrolithiasis 07/04/2007 Osteoporosis 01/28/2020 Other specified anemias 03/16/2022 Acute blood loss 11/2020 (post surgery) Primary osteoarthritis of both first carpometacarpal joints 05/04/2018 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 09/09/2015 Rosacea 09/09/2015 S/P lumbar spinal fusion 12/15/2020 Sepsis due to Gram-negative organism with septic shock (HCC) 12/17/2020 Proteus mirabilis UTI Situational anxiety 06/27/2019 Situational depression 02/27/2021 Spondylosis of lumbar region without myelopathy or radiculopathy 03/10/2018 Thyroid nodule 12/03/[address] Zacarias Previous Surgical History PAST SURGICAL HISTORY Procedure Laterality Date ARTHRP INTERPOS INTERCARPAL/METACARPAL JOINTS Left 05/24/2018 Left thumb CMC arthroplasty with LRTI and MCP pinning of left thumb COLONOSCOPY FLX DX W/COLLJ SPEC WHEN PFRMD 07/17/08, 2012 COLONOSCOPY FLX DX W/COLLJ SPEC WHEN PFRMD [facility]/20/2021 stent removal EGD TRANSORAL BIOPSY SINGLE/MULTIPLE 12/26/2008 ESOPHAGOGASTRODUODENOSCOPY TRANSORAL DIAGNOSTIC 03/18/2020 EGD EXCISION OF CYST squamous cell on head LAP, REVISION DEMETRIO FUNDOPLASTY 03/11/2009 hiatal hernia LAPAROSCOPY SURG CHOLECYSTECTOMY 03/11/2009 LITHOTRIPSY XTRCORP SHOCK WAVE 1982,12/07/2006, 2011 NEPHROLITHOTOMY REMOVAL STAGE 1 Right 11/28/2006, 2011 (R) ureteroscopic OPEN REPAIR OF ROTATOR CUFF ACUTE Right 12/06/2002 OPEN REPAIR OF ROTATOR CUFF ACUTE Left 08/26/2004 PERIPHERAL NERVE BLOCK (MOD 59) Bilateral 11/01/2016, 03/28/2018 bilateral lumbar facet medial branch nerve block (l4-5, L5-S1) REMOVAL OF HEMORRHOID CLOT 06/2017 SPINAL FUSION,ANT,EA ADNL LEVEL 2001 TONSILLECTOMY HX Childhood XCAPSL CTRC RMVL INSJ IO LENS PROSTH W/O ECP Bilateral 08/25/2016 Family History FAMILY HISTORY Problem Relation Age of Onset Cancer Mother lung Cancer Father colon Cancer Brother lymphoma Patient Allergies ALLERGIES Allergen Reactions Contrast Dye Hives Finacea [Azelaic Ac* Rash Bactrim [Sulfametho* Unknown Bextra [Valdecoxib] Unknown Cardura [Doxazosin * Unknown Ciprofloxacin Unknown Cytotec [Misoprosto* Unknown Fosamax [Alendronat* Vomiting heartburn, vomiting Gabapentin Mental Status Change Keflex [Cephalexin] Rash Ketoconazole Unknown Levofloxacin Other: See Comments Pseudomonas Mobic [Meloxicam] Unknown Nitrofurantoin Other: See Comments Per , "he didn't feel well" - unsure of reaction Nsaids (Non-Steroid* Unknown GI UPSET Relafen [Nabumetone] Unknown Terbinafine GI Upset Current Medications Current Outpatient Medications on File Prior to Visit Medication Sig traZODone (DESYREL) 50 mg tablet Take 0.5 tablets by mouth daily at bedtime. quinapril (ACCUPRIL) 5 mg tablet Take 1 tablet by mouth once daily. hydroCHLOROthiazide (HYDRODIURIL, ESIDRIX) 12.5 mg tablet Take 1 tablet by mouth once daily. triamcinolone acetonide (KENALOG) 0.1 % cream Apply to affected areas (rosacea) as directed by provider Docusate Sodium 250 mg capsule Take 250 mg by mouth twice daily. atorvastatin (LIPITOR) 10 mg tablet Take 1 tablet by mouth daily at bedtime. For cholesterol. pantoprazole DR (PROTONIX) 40 mg tablet Take 40 mg by mouth once daily. furosemide (LASIX) 20 mg tablet Take 1 tablet by mouth once daily. tamsulosin (FLOMAX) 0.4 mg Take 1 capsule by mouth once daily. doxycycline 20 mg tablet Take 20 mg by mouth twice daily. finasteride (PROSCAR) 5 mg tablet Take 1 tablet by mouth once daily. multivit-min/iron/folic acid/K (ADULTS MULTIVITAMIN ORAL) Take 1 tablet by mouth once daily. lactobacillus combination no.8 (ADULT PROBIOTIC ORAL) Take 1 capsule by mouth once daily. MEDICAL SUPPLY KA for right lower extremity. acetaminophen (TYLENOL) 500 mg tablet Take 2 tablets by mouth every 8 hours as needed for Pain or Fever. aspirin 81 mg chewable tablet Take 1 tablet by mouth once daily. melatonin 3 mg tablet Take 1 tablet by mouth daily at bedtime. calcium carbonate 600 mg-cholecalciferol 400 units (CALCIUM 600 + D) 600 mg(1,500mg) -400 unit tab Take 1 tablet by mouth twice daily. metroNIDAZOLE 0.75 % cream Apply 1 application to affected area twice daily. Apply to areas of rosacea on the face Current Facility-Administered Medications on File Prior to Visit Medication perflutren lipid microspheres 1.3 mL in NaCl (PF) 0.9% 10 mL injection (DEFINITY) sodium chloride 0.9 % (flush) 10 mL (BD POSIFLUSH) Social History Social History Tobacco Use Smoking status: Former Types: Cigarettes Quit date: 06/24/1963 Years since quittin.3 Smokeless tobacco: Never Tobacco comments: quit in his 20's - smoked socially while in college Vaping Use Vaping Use: Never used Substance Use Topics Alcohol use: Yes Comment: 1-2 drinks in A MONTH Drug use: No Review of Symptoms REVIEW OF SYSTEMS GENERAL: No weight loss, malaise or fevers HEENT: Negative for frequent or significant headaches, No changes in hearing or vision, no nose bleeds or other nasal problems. Is seeing speech therapy for hoarseness. NECK: Negative for lumps, goiter, pain and significant neck swelling RESPIRATORY: Negative for cough, hemoptysis, wheezing, COPD, dyspnea or shortness of breath CARDIOVASCULAR: Negative for chest pain, leg swelling, hypertension, CHF or palpitations GI: No nausea, vomiting, or diarrhea, No heartburn or reflux symptoms, and no blood : No history of dysuria, blood MUSCULOSKELETAL: has low back pain from time to time. SKIN: Negative for lesions, rash, and itching PSYCH: Negative for sleep disturbance, mood disorder and recent psychosocial stressors HEMATOLOGY/LYMPHOLOGY: Negative for prolonged bleeding, bruising easily or swollen nodes ENDOCRINE: Negative for cold or heat intolerance, polyuria, polydipsia and goiter NEURO: No history of headaches, syncope, paralysis, seizures or tremors. Concerned may be having some memory issues. EXAM: BP 104/62 (BP Site: Left Arm, BP Position: Sitting, BP Cuff Size: Regular Adult) Pulse 76 Resp 16 Ht 182.9 cm (6') Wt 74.4 kg (164 lb) BMI 22.24 kg/m Last 5 Encounter Wt Readings: Date: Wt: 10/04/2022 74.4 kg (164 lb) 08/23/2022 74 kg (163 lb 3.2 oz) 08/18/2022 73.5 kg (162 lb) 07/21/2022 77.7 kg (171 lb 6.4 oz) 07/14/2022 79 kg (174 lb 1.6 oz) General Appearance: Well appearing, alert, in no acute distress, well-hydrated, well nourished.. Skin: Skin color, texture, turgor normal, no suspicious rashes or lesions. Head: Normocephalic, no masses, lesions, tenderness or abnormalities. Eyes: Anicteric sclera. Pupils are equally round and reactive to light. Extraocular movements are intact. . Ears: External ears, TM's normal, canals clear. Neck: Supple, no adenopathy; thyroid symmetric, normal size, no bruits. Lungs: Lungs clear to auscultation. No wheezing, rhonchi, rales.. Heart: RRR without murmur, gallop, or rubs. No ectopy. Abdomen: Normal abdominal exam, Abdomen soft, non-tender. Bowel sounds normal. No masses, organomegaly. Extremities: No deformities, skin discoloration, Good capillary refill. . Musculoskeletal: Muscular strength intact, No joint swelling, deformity, or tenderness. Peripheral Pulses: Normal. Neurologic: Gait assisted with walker. Sensation to light touch intact.. Genitalia: deferred. Health Maintenance List BP CONTROLLED (<130/80) due on 01/23/2020 ADVANCE DIRECTIVE DISCUSSION Never done ANNUAL PCP TEAM CHRONIC DISEASE VISIT due on 05/21/2023 DIABETES SCREEN due on 08/26/2025 DTAP,TDAP,TD(4 - Td or Tdap) due on 03/13/2028 INFLUENZA Completed SHINGRIX VACCINE Completed COVID-19 VACCINE Completed PNEUMOCOCCAL: 65+ Completed Data reviewed A/P ASSESSMENT/PLAN: 1. Medicare annual wellness visit, subsequent - ICD9: V70.0, ICD10: Z00.00 (primary diagnosis) - Counseled on healthy diet and regular exercise - Follow up for annual exam in one year 2. Essential hypertension, benign - ICD9: 401.1, ICD10: I10 - good control - Continue current medication(s) - Recommended regular aerobic exercise. - Recommend home blood pressure monitoring, to bring results in on next visit - patient can go to using lasix for leg swelling as needed. - to check BP's and let me know what they are running. - Goal of BP <130/80. Check - COMP METABOLIC PANEL - URINALYSIS, WITH MICROSCOPIC - LIPID PANEL, NONFASTING 3. Elevated blood sugar - ICD9: 790.29, ICD10: R73.9 Check - COMP METABOLIC PANEL - HGB A1C 4. Bilateral carotid artery stenosis - ICD9: 433.10, 433.30, ICD10: I65.23 Cont current treated. Check - LIPID PANEL, NONFASTING 5. Thyroid nodule - ICD9: 241.0, ICD10: E04.1 Check - TSH BLD 6. Situational depression - ICD9: 309.0, ICD10: F43.21 - clinically stable 7. Situational anxiety - ICD9: 300.09, ICD10: F41.8 - stable. 8. Gastroesophageal reflux disease, unspecified whether esophagitis present - ICD9: 530.81, ICD10: K21.9 - Continue treatment with protonix 40 mg every day Check - VITAMIN B12 BLOOD - MAGNESIUM BLD 9. BPH with urinary obstruction - ICD9: 600.01, 599.69, ICD10: N40.1, N13.8 - stable and seeing urology 10. Unstable gait - ICD9: 781.2, ICD10: R26.81 - cont walker. 11. 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 - ICD9: V46.8, ICD10: Z99.89 - patient using. 12. Anemia due to other cause, not classified - ICD9: 285.8, ICD10: D64.89 Check - CBC + DIFF 13. Memory difficulties - ICD9: 780.93, ICD10: R41.3 Check - COMP METABOLIC PANEL - URINALYSIS, WITH MICROSCOPIC - TSH BLD - CBC + DIFF - VITAMIN B12 BLOOD - SYPHILIS TOTAL W/REFLEX Have return in near future for MMSE 14. Medication management - ICD9: V58.69, ICD10: Z79.899 check - VITAMIN B12 BLOOD - MAGNESIUM BLD 15. Advance directive discussed with patient - ICD9: V65.49, ICD10: Z71.89 - patient to bring in copies. Requested Prescriptions Signed Prescriptions Disp Refills quinapril (ACCUPRIL) 5 mg tablet 90 tablet 1 Sig: Take 1 tablet by mouth once daily. hydroCHLOROthiazide (HYDRODIURIL, ESIDRIX) 12.5 mg tablet 90 tablet 1 Sig: Take 1 tablet by mouth once daily. furosemide (LASIX) 20 mg tablet 90 tablet 1 Sig: Take 1 tablet by mouth once daily. tamsulosin (FLOMAX) 0.4 mg 90 capsule 1 Sig: Take 1 capsule by mouth once daily. finasteride (PROSCAR) 5 mg tablet 90 tablet 3 Sig: Take 1 tablet by mouth once daily. F/u near future MMSE. F/u 6 months routine I spent a total of 40 minutes on the date of the service which included preparing to see the patient, [id number] patient care, completing clinical documentation, performing a medically appropriate examination, counseling and educating the patient/family/caregiver and ordering medications, tests, or procedures. Francisco Bahena MD [facility] Miscellaneous Notes* Telephone Encounter - Francisco Bahena MD - 09/28/2022 4:34 PM EST The following approved medication requests have been transmitted electronically. Requested Prescriptions Signed Prescriptions Disp Refills traZODone (DESYREL) 50 mg tablet 45 tablet 1 Sig: Take 0.5 tablets by mouth daily at bedtime. Authorizing Provider: FRANCISCO BAHENA MD documented in this encounterCh[facility]01-[facility]-2023 NoteHNO ID: [id number] Author: Essence Castañeda [facility] Service: ? Author Type: Speech Language Pathologist Type: Progress Notes Filed: 09/28/2022 5:07 PM Note Text: Episode Visit Count: 1 Therapist That Will Accept/Oversee The Plan Of Care: Garry Start of Care Date: 09/28/22 Onset Date: 08/02/22 Plan of Care Certification Date: 09/28/22 Next Certification Due Date: 11/27/22 Patient Identified by Name and Date of : Yes [facility] SPEECH THERAPY CLINICAL SWALLOW EVALUATION PLAN OF CARE: Impression: Swallow Deficits Identified / Suspected: Oropharyngeal dysphagia;Concern for possible esophageal impairment Prognosis: Excellent Excellent: current objective clinical presentation;good support system/ coping skills Goals for Episode of Care: created on 09/28/2022 through 11/27/22 SWALLOWING GOALS -Increase laryngeal/pharyngeal function through completion of oropharyngeal strengthening and airway protection exercises in order to clear oral/pharyngeal residuals so that the patient may eliminate aspiration and improve airway protection during oral intake with 90% effectiveness. -Demonstrate knowledge and use of compensatory swallowing strategies in order to reduce signs/symptoms of possible aspiration with a Dental Soft Diet and Thin Liquids IDDSI Level 0 within 100% of trials. All goals to target the patient's overall ability to safely consume the highest appropriate diet level RECOMMENDATION: Diet Recommendations: Thin Liquids IDDSI Level 0;Dental Soft;Medications whole in puree (pudding/applesauce) Swallowing Precautions Recommendations: Alternate bites and sips;Anti-Reflux precautions;Double swallows;Effortful swallow;Feed / Eat at a slow rate;Self-monitoring;Small Bite/Sip;Throat clear, reswallow;Reduced bite size;Chin tuck [employer] Recommendations: Diet;Swallowing Precautions Recommended Consults: GI Results and Recommendations Discussed With: Patient;Significant Other Planned Interventions, Frequency, and Duration: Current Frequency: 1x every other week Duration: 8 weeks SUGGESTED TREATMENT OBJECTIVES: -Oropharyngeal strengthening -Airway protection exercises -Vocal adduction exercises PLAN FOR NEXT VISIT: dysphagia strategies, orpharyngeal strengthening, airway protection Patient demonstrates good understanding of results, recommendations, goals and plan of care. Patient and agreed with plan. SUBJECTIVE: Javier Bond is a 81 year old male seen today for clinical swallowing assessment. -Referred to for dysphagia therapy -Vocal fold dysfunction -Recent MBSS recommending soft and bite sized/thin liquids -Patient reports history of dysphagia -Recent surgery for Zenker's Diverticulum -ENT appointment scope revealed hypomobility of true left cord, incomplete glottic closure Previous Swallow Study: MBS Completed 08/27/22 at [facility] as follows: 'Results/Recommendations: Oral stage significant for reduced bolus formation and control, tongue pumping, mild stasis and extended mastication of bread Trace aspiration of mildly thick liquids Significant pharyngoesophageal stasis requiring multiple swallows to clear Patient often expectorated phlegm and stasis Chin tuck modeled by [employer] and attempted by patient Increased laryngeal protection and reduced degree of stasis with chin tuck, alternating liquids and solids and 2-3 swallows all bites and sips Patient with good awareness of penetration of liquids, throat clearing intermittently Recommend initiation of a soft diet and thin liquids, strict aspiration precautions.' Relevant medical history/ comorbidities: Unplanned weight loss: Yes Complaints of food items getting stuck: Yes history of esophageal dilation OBJECTIVE MEASURES WITH LEVEL OF FUNCTION: Swallow Position Of Patient During Assessment: Unsupported Sitting Consistencies Presented: Thin Liquids IDDSI Level 0;Pureed IDDSI Level 4;Solid Response to Consistencies Presented: Patient readily consumed tal cracker, occasional throat clear observed throughout trials of cracker and pudding. Required reminders for chin tuck and re-swallow; patient endorses sensation of food in airway/need to clear throat at times; vocal quality is harsh and raspy at times, vaies throughout session. Consumes thin liquid by cup with throat clear x2 (delayed); patient reports history of esophageal stricture and dilation in past Compensatory Strategies Utilized During Assessment: Alternate bites and sips;Anti-Reflux precautions;Chin tuck;Double swallows;Effortful swallow;Feed / Eat at a slow rate;Small Bite/Sip;Self-monitoring;Voice checks;Throat clear, reswallow Previous Swallow Study: MBS Clinical Swallow [place] Swallow Protocol: Fail Fail: Coughing episodes;Patient stopping prior to completion Oral Pharyngeal Swallow Assessment: Within Functional Limits Except Preparatory / Oral Phase: Withi (more content not included)...[facility] 09-02-2022 History of Present illness Narrative* Nan Zaragoza MD - 09/02/2022 4:48 PM EST Images from the original note were not included. Otolaryngology - Head and Neck Surgery [facility] [place], [facility] NOTE Chief Complaint: Patient presents with: New Patient: Phlegm in throat and choking when he eats since surgery 07/29/22, pain when lying down ASSESSMENT/PLAN: 1. Vocal cord paralysis - ICD9: 478.30, ICD10: J38.00 -- Patient is about a month out from excision of a Zenker's diverticulum, and has persistent throatclearing and postnasal drainage --Exam today reveals hypomobility of the left true vocal fold. There is a small amount of motion, but weakness of ABduction and incomplete glottic closure We discussed today that given that there is some motion noted, he is likely to have recovery of hisvocal fold function I suspect that his perception of increased postnasal drainage is primarily related to alteration oflaryngeal function, as there was no evidence of chronic sinusitis or excess drainage from the nose Recommend use of Flonase and saline irrigations Recommend evaluation by speech therapy, and this is already scheduled for next week He will follow-up in 3 to 4 weeks, at which point a repeat scope will be performed. If there is no sign of improvement at that time, could consider referral for a temporary vocal fold injection Nan Zaragoza MD [facility] HPI: Patient is a 81-year-old gentleman who presents for evaluation of voice complaints and postnasal drainage since excision of a Zenker's diverticulum. He was initially taken for surgery on 07/31, and due to difficulty identifying the diverticulum he returned to the OR for cervical reexploration on 08/02. Since that time he has been experiencing increased postnasal drainage, throat clearing, and voice changes. He did pass a modified barium swallow study on August 27. No major issues prior to surgery aside from dysphagia related to the Zenker's. Consultation requested by Petey Rosas MD for an opinion regarding the patient's complaint notedabove. My final recommendations will be communicated back to the requesting physician by way of shared medical record. ALLERGIES ALLERGIES Allergen Reactions Contrast Dye Hives Finacea [Azelaic Ac* Rash Bactrim [Sulfametho* Unknown Bextra [Valdecoxib] Unknown Cardura [Doxazosin * Unknown Ciprofloxacin Unknown Cytotec [Misoprosto* Unknown Fosamax [Alendronat* Vomiting heartburn, vomiting Gabapentin Mental Status Change Keflex [Cephalexin] Rash Ketoconazole Unknown Levofloxacin Other: See Comments Pseudomonas Mobic [Meloxicam] Unknown Nitrofurantoin Other: See Comments Per , "he didn't feel well" - unsure of reaction Nsaids (Non-Steroid* Unknown GI UPSET Relafen [Nabumetone] Unknown Terbinafine GI Upset MEDICATIONS Current Outpatient Medications Medication Sig hydroCHLOROthiazide (HYDRODIURIL, ESIDRIX) 12.5 mg tablet Take 1 tablet by mouth once daily. traZODone (DESYREL) 50 mg tablet Take 0.5 tablets by mouth daily at bedtime. triamcinolone acetonide (KENALOG) 0.1 % cream Apply to affected areas (rosacea) as directed by provider Docusate Sodium 250 mg capsule Take 250 mg by mouth twice daily. atorvastatin (LIPITOR) 10 mg tablet Take 1 tablet by mouth daily at bedtime. For cholesterol. pantoprazole DR (PROTONIX) 40 mg tablet Take 40 mg by mouth once daily. furosemide (LASIX) 20 mg tablet Take 1 tablet by mouth once daily. tamsulosin (FLOMAX) 0.4 mg Take 1 capsule by mouth once daily. quinapril (ACCUPRIL) 5 mg tablet Take 1 tablet by mouth once daily. doxycycline 20 mg tablet Take 20 mg by mouth twice daily. finasteride (PROSCAR) 5 mg tablet Take 1 tablet by mouth once daily. multivit-min/iron/folic acid/K (ADULTS MULTIVITAMIN ORAL) Take 1 tablet by mouth once daily. lactobacillus combination no.8 (ADULT PROBIOTIC ORAL) Take 1 capsule by mouth once daily. MEDICAL SUPPLY KAFO for right lower extremity. acetaminophen (TYLENOL) 500 mg tablet Take 2 tablets by mouth every 8 hours as needed for Pain or Fever. aspirin 81 mg chewable tablet Take 1 tablet by mouth once daily. melatonin 3 mg tablet Take 1 tablet by mouth daily at bedtime. calcium carbonate 600 mg-cholecalciferol 400 units (CALCIUM 600 + D) 600 mg(1,500mg) -400 unit tab Take 1 tablet by mouth twice daily. metroNIDAZOLE 0.75 % cream Apply 1 application to affected area twice daily. Apply to areas of rosacea on the face Current Facility-Administered Medications Medication Dose Route Frequency perflutren lipid microspheres 1.3 mL in NaCl (PF) 0.9% 10 mL injection (DEFINITY) INTRAVENOUS DIRECTED PRN sodium chloride 0.9 % (flush) 10 mL (BD POSIFLUSH) 10 mL INTRAVENOUS DIRECTED PRN PMH 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 Chronic constipation 12/03/2020 Compression fracture of third lumbar vertebra (HCC) 11/05/2019 Degenerative lumbar spinal stenosis 12/15/2020 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/28/2017 Elevated blood sugar 08/31/2021 Episodic cluster headache, not intractable 09/09/2015 Essential hypertension, benign Family history of malignant neoplasm of gastrointestinal tract GERD (gastroesophageal reflux disease) 03/25/2009 History of compression fracture of spine 11/05/2019 Hypercalciuria, idiopathic 02/11/2020 Hypertrophy of prostate without urinary obstruction and other lower urinary tract symptoms (LUTS) Ilioinguinal neuralgia of left side 09/27/2019 Internal hemorrhoids without mention of complication Lumbar degenerative disc disease 09/14/2012 Lumbar radiculopathy 07/03/2020 Medicare annual wellness visit, subsequent 09/10/2021 Medicare Part B: Not able to find Last done: 09/10/2021 Nephrolithiasis 07/04/2007 Osteoporosis 01/28/2020 Other specified anemias 03/16/2022 Acute blood loss 11/2020 (post surgery) Primary osteoarthritis of both first carpometacarpal joints 05/04/2018 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 09/09/2015 Rosacea 09/09/2015 S/P lumbar spinal fusion 12/15/2020 Sepsis due to Gram-negative organism with septic shock (HCC) 12/17/2020 Proteus mirabilis UTI Situational anxiety 06/27/2019 Situational depression 02/27/2021 Spondylosis of lumbar region without myelopathy or radiculopathy 03/10/2018 Thyroid nodule 12/03/[address] Zacarias SOCIAL HISTORY PAST SURGICAL HISTORY Procedure Laterality Date ARTHRP INTERPOS INTERCARPAL/METACARPAL JOINTS Left 05/24/2018 Left thumb CMC arthroplasty with LRTI and MCP pinning of left thumb COLONOSCOPY FLX DX W/COLLJ SPEC WHEN PFRMD 07/17/08, 2012 COLONOSCOPY FLX DX W/COLLJ SPEC WHEN PFRMD [facility]/28/[facility] 02/20/2021 stent removal EGD TRANSORAL BIOPSY SINGLE/MULTIPLE 12/26/2008 ESOPHAGOGASTRODUODENOSCOPY TRANSORAL DIAGNOSTIC 03/18/2020 EGD EXCISION OF CYST squamous cell on head LAP, REVISION DEMETRIO FUNDOPLASTY 03/11/2009 hiatal hernia LAPAROSCOPY SURG CHOLECYSTECTOMY 03/11/2009 LITHOTRIPSY XTRCORP SHOCK WAVE 1982,12/07/2006, 2011 NEPHROLITHOTOMY REMOVAL STAGE 1 Right 11/28/2006, 2011 (R) ureteroscopic OPEN REPAIR OF ROTATOR CUFF ACUTE Right 12/06/2002 OPEN REPAIR OF ROTATOR CUFF ACUTE Left 08/26/2004 PERIPHERAL NERVE BLOCK (MOD 59) Bilateral 11/01/2016, 03/28/2018 bilateral lumbar facet medial branch nerve block (l4-5, L5-S1) REMOVAL OF HEMORRHOID CLOT 06/2017 SPINAL FUSION,ANT,EA ADNL LEVEL 2001 TONSILLECTOMY HX Childhood XCAPSL CTRC RMVL INSJ IO LENS PROSTH W/O ECP Bilateral 08/25/2016 FAMILY HISTORY FAMILY HISTORY Problem Relation Age of Onset Cancer Mother lung Cancer Father colon Cancer Brother lymphoma PHYSICAL EXAM: There were no vitals taken for this visit. GENERAL: no acute distress, alert VOICE: clear, no stridor/stertor HEAD AND FACE: Physical examination of the head, neck, external nose, external ears, mouth and facefails to demonstrate any significant abnormality or asymmetry to critical face to face observation.Skin and scalp are normal. EYES: PERRL, gross vision intact, EOMI EARS: bilateral ear canals clear, bilateral tympanic membranes intact, middle ear space clear without masses or effusions NOSE: Examination of the nasal cavity revealed a septum which is midline. The mucosa is pink, and the visible turbinates are normal on anterior rhinoscopy. There is no purulence or polyps . External nose is unremarkable ORAL CAVITY AND OROPHARYNX: The oral mucosa, hard and soft palates, tongue, tonsil area, and posterior pharyngeal wall are without lesions. NECK: Vertical incision in the left neck from transcervical approach. On palpation, there are no masses or lymphadenopathy. The thyroid is not palpable and was free of masses. No salivary gland masses or hypertrophy is noted. REVIEW OF RADIOLOGICAL FILMS AND RECORDS: None REVIEW OF LABS/TESTING/AUDIOLOGY RECORDS None Laryngoscopy Procedure Note Procedure: Transnasal flexible fiberoptic laryngoscopy Freight Sales Broker: Nan Zaragoza MD Anesthesia: Topical oxymetazoline & 4% lidocaine topical spray to the nasal cavity Indication: Dysphonia Description: A flexible fiberoptic endoscope was advanced through the nasal cavity to evaluate the nasopharynx, oropharynx, hypopharynx and laryngeal structures. Once the endoscope was withdrawn, the patient was noted to have tolerated the procedure well without complications and was returned to ambulatory status. Findings: Nasal cavity: tissue is healthy appearing without evidence of infection, mass or lesion. Nasopharynx: Tissue is healthy appearing without mass or lesion. Oropharynx: Tissue is healthy appearing without mass or lesion. Base of Tongue: Tissue is symmetric and healthy appearing without mass or lesion. Valeculla: Tissue is symmetric and healthy appearing without mass or lesion. Larynx: Tissue is healthy appearing without mass or lesion. Hypopharynx: Post-cricoid area and posterior-lateral pharyngeal diane are symmetric and healthy appearing without mass or lesion. Vocal folds: Hypomobility of the left true vocal fold. There is a small amount of purposeful motion, but weakness of ABduction and incomplete glottic closure Subglottis (limited view): without obstruction, mass or narrowing. Nan Zaragoza MD Head and Neck Orange [facility] History of Present illness Narrative* Chhaya Michaels RN - 08/30/2022 3:47 PM EST TRANSITIONAL CARE MANAGEMENT (TCM) COMMUNITY MONITORING PROGRAM Provider Action/FYI: spoke with identified caregiver spouse denies any new symptoms since discharge no new meds prescribed tolerating soft diet denies any new symptoms since discharge reviewed AVS and dietary recommendations using this for reference per spouse questioning how to arrange out patient speech theray that was ordered phone number and instruction given aware of f/u appts 09/02/22 ENT f/u pt does not have f/u appt scheduled with pcp at this time, until September, will keep that appt, as he has specialty appts in the interim SUMMARY: Pt discharged from [facility] on 08/27/22 Admitted for: dysphagia Contact made with patient: Yes Hi my name is Chhaya Michaels RN and I am calling from the [facility] on behalf of your PCP, Francisco Bahena MD I understand you were recently in the hospital so I am calling to check in withyou to ensure you are feeling well now that you're home. May I ask you a few questions related to your hospital stay and well-being? Yes Contact with patient post discharge, spoke to patient. Patient identified by name and . Do you feel your health is BETTER, WORSE, or the SAME since leaving the hospital? Better ACTION TAKEN: Patient indicated symptoms are better or same, no action required. Continue outreach. MEDICATIONS: Many patients have questions or concerns about their medications once they are home. Do you have any questions about taking your medications or which medication you should be on? No Do you need any medication refills at this time, including any of the medications you might take only when needed? No ACTION TAKEN: No action required For RNs or Pharmacy completing outreach ONLY, was a medication review completed? No SOCIAL: We would like to make sure you have what you need so that your basics needs are met - including your personal safety, food, housing and medications. Would you like to speak with a social work care team coordinator scheduler to help give you support for any of these needs? No It can be normal to feel anxious or down during a time like this. Would you like to talk to a mental health professional about how you have been feeling? No ACTION TAKEN: No action taken DISCHARGE INTRUCTIONS: Your discharge instructions / After Visit Summary (AVS) are important in guiding you through the recovery process. Do you have any questions related to your discharge instructions? No Do you have all the necessary equipment and supplies at home? Yes ACTION TAKEN: No action required I would like to help you schedule a hospital follow-up virtual or telephone visit with your PCP. This is a great way for you to connect with your provider to ensure you have safely transitioned home.If you are agreeable, I will send your request to a care team coordinator scheduler who will contact and assist you with that appointment. This will give you an opportunity to ask any questions or address any concerns youmay have with your PCP. Inform the patient that if they have any questions or concerns prior to that appointment, to call their PCP's office right away. ACTION TAKEN: No action required, patient already has an appointment scheduled. Your doctor would like us to remind you of the recommendations regarding the coronavirus (Covid19) outbreak: Avoid public places as much as possible. Avoid close contact (within 6 feet) with others you don t live with, especially if they are sick. Stay home if you are sick. Wash your hands regularly for at least 20 seconds with soap and water. Wear a cloth mask in public places to help reduce community spread. Do not go to your Doctor s office unless instructed to do so. For any non- emergency symptoms, call your Doctor s office to get instructions on how to manage (we might recommend a telephone or virtualvisit). For emergency symptoms, proceed to Emergency Department as usual but inform them of cough and fever symptoms TERRIE if present (or call on the way if possible). TCM Home Visit Referral Source of Stratification: [facility] Admission Status: Discharged Readmission Risk Score: 9 DL Score: 2 Patient meets program referral criteria: No Patient does not qualify for High Risk TCM Home Visit program due to: Discharged home, does not meet program criteria Chhaya Michaels RN August 30, 2022 4:10 PM documented in this encounterCh[facility] Miscellaneous Notes* Telephone Encounter - Yash Monroe MA - 08/30/2022 3:28 PM EST Prescription was sent to pharmacy on 08/23/2022 30 tablets 1 additional refill. Yash Monroe MA documented in [facility] NoteHNO ID: [id number] Author: Chiquita Messina RN Service: Care Management Author Type: Registered Nurse Type: Care Mgt Initial Assessment Filed: 08/27/2022 9:36 AM Note Text: CARE MANAGEMENT: ASSESSMENT AND DISCHARGE PLAN SERVICE DATE: August 27, 2022 SERVICE TIME: 9:30 AM PRIMARY CARE PHYSICIAN: Francisco Bahena MD Primary Contact: Extended Emergency Contact Information Primary Emergency Contact: Peter Spears Address: [address] [place] [address] Mobile Relation: Spouse Secondary Emergency Contact: YUMIKO BOND Relation: Daughter ADMISSION STATUS: Observation Insurance Provider: [employer] MEDICARE PPO NEEDS PRIOR TO DISCHARGE Needs Prior to Discharge: To Be Determined;Discharge Transportation POTENTIAL TRANSITION PLANS Home Based on clinical judgement, Care Management will address the following needs: Medical;Functional Patient's perception of need for this admission: difficulty swallowing, direct admit ADVANCE DIRECTIVES Current Advance Directive: None Miller Apprentice Attempted to Assist with AD Completion: Yes Action: Education Provided MS/BEHAVIOR Baseline Mental Status Prior to this Illness what was the patient's Baseline Mental Status?: Alert AND Oriented Prior to this illness, has anyone described the patient having any of the following behaviors?: Not Applicable Relationship of the informant to the patient:: Self READMISSION Last Discharge Date: 08/02/22 Is this Within the Past 30 days? 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 scores in the EMR?: Yes Situation: Aspiration Risk Any potential risks related to substance abuse and/or behavioral health?: No Based on clinical judgement, Care Management will address the following needs: Medical;Functional CAREGIVER ASSESSMENT Caregiver is ready, willing and able to meet the patient's needs as recommended by the inter-professional team:: Other: See Comment Patient's transition needs and plan for meeting these needs: Needs TBD MEDICAL Medical Needs: Two or more chronic diseases;Nutritional;Fall risk or frequent falls Nutrition Needs: Other Nutrition Needs (dysphagia) Health Issues Impacting Discharge Plan: Uncontrolled;Newly diagnosed;Chronic Uncontrolled: Dysphagia Chronic: Malnutrition, HTN, Gerd,BPH, Raynaud, Hx Gastric CA Medication Adherance I am convinced of the importance of my prescription medication: 0 - Agree Completely I worry that my prescription medication will do more harm than good to me : 0 - Disagree Completely I feel financially burdened by my [id number] expenses for my prescription medication:: 0 - Disagree Completely Risk Score: 0 Patient is categorized as: Low risk < 2 SOCIAL Living Arrangements: Home Lives With: Spouse Financial Resources: Retired Supportive Patient Contact:: Yes Contact Resources: Family Family Name/Phone: Peter Spears (Spouse) Is Patient Psychosocially Complex?: No Contact Resources: Family Family Name/Phone: Vero HankPeter Amber (Spouse) Health Literacy How often do you need to have someone help you when you read instructions, pamphlets, or other written material from your doctor or pharmacy? : 1 - Never How confident are you filling out medical forms by yourself?: 1 - Extremely If Patient scores > 3 on either question, the following interventions were put into place:: Patient did not score > 3 on either question. Food Insecurity: No Food Insecurity Worried About Running Out of Food in the Last Year: Never true Ran Out of Food in the Last Year: Never true Financial Resource Strain: Low Risk Difficulty of Paying Living Expenses: Not very hard Transportation Needs: No Transportation Needs Lack of Transportation (Medical): No Lack of Transportation (Non-Medical): No Housing Stability: Low Risk Unable to Pay for Housing in the Last Year: No Number of Places Lived in the Last Year: 1 Unstable Housing in the Last Year: No BEHAVIORAL/COGNITIVE Psychosocial Psychosocial Needs: M (more content not included)...[employer] [id number] History of Past illness Narrative* Problem Noted Date Resolved Date Moderate protein-calorie malnutrition 08/26/2022 10/04/2022 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 coli) 021 12/17/2020 Last Assessment & Plan: Assessment: 12/17 patient is tachycardic, hypotensive, lactate elevated, given some pressors and fluid by Amet, Blood culture pending. 12/16 UA and Ucx grow GNB. Started on zosyn. PLAN: - Zosyn - Follow up culture - Keep Map >65, pressors as needed, currently on Levo Hemodynamic instability 12/17/2020 02/28/20 Last Assessment & Plan: Assessment: Likely urosepsis, on levo gtt PLAN: Keep Map >65, pressors as needed, currently on Levo Sepsis due to Gram-negative organism with septic shock 12/17/2020 12/22/2020 Last Assessment & Plan: Assessment: - Proteus identified in blood and urine, bourgeois-sensitive - Showed great improvement over the last 2 days - Now off pressors and extubated. PLAN: - Amikacin re-dosed 12/19. Continue zosyn - CT chest/abdomen/pelvis to assess for potential additional sources of infection was unremarkable. - Follow up C/S - Stress dose steroids Acute postoperative respiratory insufficiency 12/22/2020 Last Assessment & Plan: Assessment: - PTX on 12/18 CXR, s/p 14Fr pigtail. This has been repositioned as needed. - Currently extubated with adequate O2 saturations on room air PLAN: - Monitor respiratory status. - Will assess tpday for Pigtail removal BRITTANY (acute kidney injury) 12/17/20202020 Last Assessment & Plan: Assessment: - Resolving, likely prerenal versus less likely ATN given speed of improvement - Solute clearance appropriate - UOP good volume - New almanza inserted 12/17 PLAN: - Continue resuscitation - Trend CMP Delirium 12/16/2020 12/22/2020 Last Assessment & Plan: Delirium likely 2/2 infection. Geriatrics has been following PLAN: -- continue oxycodone 2.5-5mg every 4 hours as needed for pain (NGT) -- limit narcotic -- treat active infection/supportive care Hypomagnesemia 12/16/2020 12/17/2020 Last Assessment & Plan: Assessment: Hypomagnesemia PLAN: -Magnesium sulfate 2 gm IV x 1. -Monitor: signs, symptoms, disease progression, disease regression. -Evaluate: test results, medication effectiveness, response to treatment. Hypophosphataemia 12/16/2020 12/17/2020 Last Assessment & Plan: Assessment: Hypophosphatemia PLAN: -Sodium phosphate 30 mmol IV x 1. -Monitor: signs, symptoms, disease progression, disease regression. -Evaluate: test results, medication effectiveness, response to treatment. 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 coli) 021 12/17/2020 Last Assessment & Plan: Assessment: 12/17 patient is tachycardic, hypotensive, lactate elevated, given some pressors and fluid by Amet, Blood culture pending. 12/16 UA and Ucx grow GNB. Started on zosyn. PLAN: - Zosyn - Follow up culture - Keep Map >65, pressors as needed, currently on Levo Hemodynamic instability 12/17/2020 02/28/20 Last Assessment & Plan: Assessment: Likely urosepsis, on levo gtt PLAN: Keep Map >65, pressors as needed, currently on Levo Sepsis due to Gram-negative organism with septic shock 12/17/2020 12/22/2020 Last Assessment & Plan: Assessment: - Proteus identified in blood and urine, bourgeois-sensitive - Showed great improvement over the last 2 days - Now off pressors and extubated. PLAN: - Amikacin re-dosed 12/19. Continue zosyn - CT chest/abdomen/pelvis to assess for potential additional sources of infection was unremarkable. - Follow up C/S - Stress dose steroids Acute postoperative respiratory insufficiency 12/22/2020 Last Assessment & Plan: Assessment: - PTX on 12/18 CXR, s/p 14Fr pigtail. This has been repositioned as needed. - Currently extubated with adequate O2 saturations on room air PLAN: - Monitor respiratory status. - Will assess tpday for Pigtail removal BRITTANY (acute kidney injury) 12/17/20202020 Last Assessment & Plan: Assessment: - Resolving, likely prerenal versus less likely ATN given speed of improvement - Solute clearance appropriate - UOP good volume - New almanza inserted 12/17 PLAN: - Continue resuscitation - Trend CMP Delirium 12/16/2020 12/22/2020 Last Assessment & Plan: Delirium likely 2/2 infection. Geriatrics has been following PLAN: -- continue oxycodone 2.5-5mg every 4 hours as needed for pain (NGT) -- limit narcotic -- treat active infection/supportive care Hypomagnesemia 12/16/2020 12/17/2020 Last Assessment & Plan: Assessment: Hypomagnesemia PLAN: -Magnesium sulfate 2 gm IV x 1. -Monitor: signs, symptoms, disease progression, disease regression. -Evaluate: test results, medication effectiveness, response to treatment. Hypophosphataemia 12/16/2020 12/17/2020 Last Assessment & Plan: Assessment: Hypophosphatemia PLAN: -Sodium phosphate 30 mmol IV x 1. -Monitor: signs, symptoms, disease progression, disease regression. -Evaluate: test results, medication effectiveness, response to treatment. 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 coli) 021 12/17/2020 Last Assessment & Plan: Assessment: 12/17 patient is tachycardic, hypotensive, lactate elevated, given some pressors and fluid by Amet, Blood culture pending. 12/16 UA and Ucx grow GNB. Started on zosyn. PLAN: - Zosyn - Follow up culture - Keep Map >65, pressors as needed, currently on Levo Hemodynamic instability 12/17/2020 02/28/20 Last Assessment & Plan: Assessment: Likely urosepsis, on levo gtt PLAN: Keep Map >65, pressors as needed, currently on Levo Sepsis due to Gram-negative organism with septic shock 12/17/2020 12/22/2020 Last Assessment & Plan: Assessment: - Proteus identified in blood and urine, bourgeois-sensitive - Showed great improvement over the last 2 days - Now off pressors and extubated. PLAN: - Amikacin re-dosed 12/19. Continue zosyn - CT chest/abdomen/pelvis to assess for potential additional sources of infection was unremarkable. - Follow up C/S - Stress dose steroids Acute postoperative respiratory insufficiency 12/22/2020 Last Assessment & Plan: Assessment: - PTX on 12/18 CXR, s/p 14Fr pigtail. This has been repositioned as needed. - Currently extubated with adequate O2 saturations on room air PLAN: - Monitor respiratory status. - Will assess tpday for Pigtail removal BRITTANY (acute kidney injury) 12/17/20202020 Last Assessment & Plan: Assessment: - Resolving, likely prerenal versus less likely ATN given speed of improvement - Solute clearance appropriate - UOP good volume - New almanza inserted 12/17 PLAN: - Continue resuscitation - Trend CMP Delirium 12/16/2020 12/22/2020 Last Assessment & Plan: Delirium likely 2/2 infection. Geriatrics has been following PLAN: -- continue oxycodone 2.5-5mg every 4 hours as needed for pain (NGT) -- limit narcotic -- treat active infection/supportive care Hypomagnesemia 12/16/2020 12/17/2020 Last Assessment & Plan: Assessment: Hypomagnesemia PLAN: -Magnesium sulfate 2 gm IV x 1. -Monitor: signs, symptoms, disease progression, disease regression. -Evaluate: test results, medication effectiveness, response to treatment. Hypophosphataemia 12/16/2020 12/17/2020 Last Assessment & Plan: Assessment: Hypophosphatemia PLAN: -Sodium phosphate 30 mmol IV x 1. -Monitor: signs, symptoms, disease progression, disease regression. -Evaluate: test results, medication effectiveness, response to treatment. 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 coli) 021 12/17/2020 Last Assessment & Plan: Assessment: 12/17 patient is tachycardic, hypotensive, lactate elevated, given some pressors and fluid by Amet, Blood culture pending. 12/16 UA and Ucx grow GNB. Started on zosyn. PLAN: - Zosyn - Follow up culture - Keep Map >65, pressors as needed, currently on Levo Hemodynamic instability 12/17/2020 02/28/20 Last Assessment & Plan: Assessment: Likely urosepsis, on levo gtt PLAN: Keep Map >65, pressors as needed, currently on Levo Sepsis due to Gram-negative organism with septic shock 12/17/2020 12/22/2020 Last Assessment & Plan: Assessment: - Proteus identified in blood and urine, bourgeois-sensitive - Showed great improvement over the last 2 days - Now off pressors and extubated. PLAN: - Amikacin re-dosed 12/19. Continue zosyn - CT chest/abdomen/pelvis to assess for potential additional sources of infection was unremarkable. - Follow up C/S - Stress dose steroids Acute postoperative respiratory insufficiency 12/22/2020 Last Assessment & Plan: Assessment: - PTX on 12/18 CXR, s/p 14Fr pigtail. This has been repositioned as needed. - Currently extubated with adequate O2 saturations on room air PLAN: - Monitor respiratory status. - Will assess tpday for Pigtail removal BRITTANY (acute kidney injury) 12/17/20202020 Last Assessment & Plan: Assessment: - Resolving, likely prerenal versus less likely ATN given speed of improvement - Solute clearance appropriate - UOP good volume - New almanza inserted 12/17 PLAN: - Continue resuscitation - Trend CMP Delirium 12/16/2020 12/22/2020 Last Assessment & Plan: Delirium likely 2/2 infection. Geriatrics has been following PLAN: -- continue oxycodone 2.5-5mg every 4 hours as needed for pain (NGT) -- limit narcotic -- treat active infection/supportive care Hypomagnesemia 12/16/2020 12/17/2020 Last Assessment & Plan: Assessment: Hypomagnesemia PLAN: -Magnesium sulfate 2 gm IV x 1. -Monitor: signs, symptoms, disease progression, disease regression. -Evaluate: test results, medication effectiveness, response to treatment. Hypophosphataemia 12/16/2020 12/17/2020 Last Assessment & Plan: Assessment: Hypophosphatemia PLAN: -Sodium phosphate 30 mmol IV x 1. -Monitor: signs, symptoms, disease progression, disease regression. -Evaluate: test results, medication effectiveness, response to treatment. 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 coli) 021 12/17/2020 Last Assessment & Plan: Assessment: 12/17 patient is tachycardic, hypotensive, lactate elevated, given some pressors and fluid by Amet, Blood culture pending. 12/16 UA and Ucx grow GNB. Started on zosyn. PLAN: - Zosyn - Follow up culture - Keep Map >65, pressors as needed, currently on Levo Hemodynamic instability 12/17/2020 02/28/20 Last Assessment & Plan: Assessment: Likely urosepsis, on levo gtt PLAN: Keep Map >65, pressors as needed, currently on Levo Sepsis due to Gram-negative organism with septic shock 12/17/2020 12/22/2020 Last Assessment & Plan: Assessment: - Proteus identified in blood and urine, bourgeois-sensitive - Showed great improvement over the last 2 days - Now off pressors and extubated. PLAN: - Amikacin re-dosed 12/19. Continue zosyn - CT chest/abdomen/pelvis to assess for potential additional sources of infection was unremarkable. - Follow up C/S - Stress dose steroids Acute postoperative respiratory insufficiency 12/22/2020 Last Assessment & Plan: Assessment: - PTX on 12/18 CXR, s/p 14Fr pigtail. This has been repositioned as needed. - Currently extubated with adequate O2 saturations on room air PLAN: - Monitor respiratory status. - Will assess tpday for Pigtail removal BRITTANY (acute kidney injury) 12/17/20202020 Last Assessment & Plan: Assessment: - Resolving, likely prerenal versus less likely ATN given speed of improvement - Solute clearance appropriate - UOP good volume - New almanza inserted 12/17 PLAN: - Continue resuscitation - Trend CMP Delirium 12/16/2020 12/22/2020 Last Assessment & Plan: Delirium likely 2/2 infection. Geriatrics has been following PLAN: -- continue oxycodone 2.5-5mg every 4 hours as needed for pain (NGT) -- limit narcotic -- treat active infection/supportive care Hypomagnesemia 12/16/2020 12/17/2020 Last Assessment & Plan: Assessment: Hypomagnesemia PLAN: -Magnesium sulfate 2 gm IV x 1. -Monitor: signs, symptoms, disease progression, disease regression. -Evaluate: test results, medication effectiveness, response to treatment. Hypophosphataemia 12/16/2020 12/17/2020 Last Assessment & Plan: Assessment: Hypophosphatemia PLAN: -Sodium phosphate 30 mmol IV x 1. -Monitor: signs, symptoms, disease progression, disease regression. -Evaluate: test results, medication effectiveness, response to treatment. 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 coli) 021 12/17/2020 Last Assessment & Plan: Assessment: 12/17 patient is tachycardic, hypotensive, lactate elevated, given some pressors and fluid by Amet, Blood culture pending. 12/16 UA and Ucx grow GNB. Started on zosyn. PLAN: - Zosyn - Follow up culture - Keep Map >65, pressors as needed, currently on Levo Hemodynamic instability 12/17/2020 02/28/20 21 Last Assessment & Plan: Assessment: Likely urosepsis, on levo gtt PLAN: Keep Map >65, pressors as needed, currently on Levo Sepsis due to Gram-negative organism with septic shock 12/17/2020 12/22/2020 Last Assessment & Plan: Assessment: - Proteus identified in blood and urine, bourgeois-sensitive - Showed great improvement over the last 2 days - Now off pressors and extubated. PLAN: - Amikacin re-dosed 12/19. Continue zosyn - CT chest/abdomen/pelvis to assess for potential additional sources of infection was unremarkable. - Follow up C/S - Stress dose steroids Acute postoperative respiratory insufficiency 12/22/2020 Last Assessment & Plan: Assessment: - PTX on 12/18 CXR, s/p 14Fr pigtail. This has been repositioned as needed. - Currently extubated with adequate O2 saturations on room air PLAN: - Monitor respiratory status. - Will assess tpday for Pigtail removal BRITTANY (acute kidney injury) 12/17/20202020 Last Assessment & Plan: Assessment: - Resolving, likely prerenal versus less likely ATN given speed of improvement - Solute clearance appropriate - UOP good volume - New almanza inserted 12/17 PLAN: - Continue resuscitation - Trend CMP Delirium 12/16/2020 12/22/2020 Last Assessment & Plan: Delirium likely 2/2 infection. Geriatrics has been following PLAN: -- continue oxycodone 2.5-5mg every 4 hours as needed for pain (NGT) -- limit narcotic -- treat active infection/supportive care Hypomagnesemia 12/16/2020 12/17/2020 Last Assessment & Plan: Assessment: Hypomagnesemia PLAN: -Magnesium sulfate 2 gm IV x 1. -Monitor: signs, symptoms, disease progression, disease regression. -Evaluate: test results, medication effectiveness, response to treatment. Hypophosphataemia 12/16/2020 12/17/2020 Last Assessment & Plan: Assessment: Hypophosphatemia PLAN: -Sodium phosphate 30 mmol IV x 1. -Monitor: signs, symptoms, disease progression, disease regression. -Evaluate: test results, medication effectiveness, response to treatment. 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 coli) 021 12/17/2020 Last Assessment & Plan: Assessment: 12/17 patient is tachycardic, hypotensive, lactate elevated, given some pressors and fluid by Amet, Blood culture pending. 12/16 UA and Ucx grow GNB. Started on zosyn. PLAN: - Zosyn - Follow up culture - Keep Map >65, pressors as needed, currently on Levo Hemodynamic instability 12/17/2020 02/28/20 Last Assessment & Plan: Assessment: Likely urosepsis, on levo gtt PLAN: Keep Map >65, pressors as needed, currently on Levo Sepsis due to Gram-negative organism with septic shock 12/17/2020 12/22/2020 Last Assessment & Plan: Assessment: - Proteus identified in blood and urine, bourgeois-sensitive - Showed great improvement over the last 2 days - Now off pressors and extubated. PLAN: - Amikacin re-dosed 12/19. Continue zosyn - CT chest/abdomen/pelvis to assess for potential additional sources of infection was unremarkable. - Follow up C/S - Stress dose steroids Acute postoperative respiratory insufficiency 12/22/2020 Last Assessment & Plan: Assessment: - PTX on 12/18 CXR, s/p 14Fr pigtail. This has been repositioned as needed. - Currently extubated with adequate O2 saturations on room air PLAN: - Monitor respiratory status. - Will assess tpday for Pigtail removal BRITTANY (acute kidney injury) 12/17/20202020 Last Assessment & Plan: Assessment: - Resolving, likely prerenal versus less likely ATN given speed of improvement - Solute clearance appropriate - UOP good volume - New almanza inserted 12/17 PLAN: - Continue resuscitation - Trend CMP Delirium 12/16/2020 12/22/2020 Last Assessment & Plan: Delirium likely 2/2 infection. Geriatrics has been following PLAN: -- continue oxycodone 2.5-5mg every 4 hours as needed for pain (NGT) -- limit narcotic -- treat active infection/supportive care Hypomagnesemia 12/16/2020 12/17/2020 Last Assessment & Plan: Assessment: Hypomagnesemia PLAN: -Magnesium sulfate 2 gm IV x 1. -Monitor: signs, symptoms, disease progression, disease regression. -Evaluate: test results, medication effectiveness, response to treatment. Hypophosphataemia 12/16/2020 12/17/2020 Last Assessment & Plan: Assessment: Hypophosphatemia PLAN: -Sodium phosphate 30 mmol IV x 1. -Monitor: signs, symptoms, disease progression, disease regression. -Evaluate: test results, medication effectiveness, response to treatment. 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 coli) 021 12/17/2020 Last Assessment & Plan: Assessment: 12/17 patient is tachycardic, hypotensive, lactate elevated, given some pressors and fluid by Amet, Blood culture pending. 12/16 UA and Ucx grow GNB. Started on zosyn. PLAN: - Zosyn - Follow up culture - Keep Map >65, pressors as needed, currently on Levo Hemodynamic instability 12/17/2020 02/28/20 21 Last Assessment & Plan: Assessment: Likely urosepsis, on levo gtt PLAN: Keep Map >65, pressors as needed, currently on Levo Sepsis due to Gram-negative organism with septic shock 12/17/2020 12/22/2020 Last Assessment & Plan: Assessment: - Proteus identified in blood and urine, bourgeois-sensitive - Showed great improvement over the last 2 days - Now off pressors and extubated. PLAN: - Amikacin re-dosed 12/19. Continue zosyn - CT chest/abdomen/pelvis to assess for potential additional sources of infection was unremarkable. - Follow up C/S - Stress dose steroids Acute postoperative respiratory insufficiency 12/22/2020 Last Assessment & Plan: Assessment: - PTX on 12/18 CXR, s/p 14Fr pigtail. This has been repositioned as needed. - Currently extubated with adequate O2 saturations on room air PLAN: - Monitor respiratory status. - Will assess tpday for Pigtail removal BRITTANY (acute kidney injury) 12/17/20202020 Last Assessment & Plan: Assessment: - Resolving, likely prerenal versus less likely ATN given speed of improvement - Solute clearance appropriate - UOP good volume - New almanza inserted 12/17 PLAN: - Continue resuscitation - Trend CMP Delirium 12/16/2020 12/22/2020 Last Assessment & Plan: Delirium likely 2/2 infection. Geriatrics has been following PLAN: -- continue oxycodone 2.5-5mg every 4 hours as needed for pain (NGT) -- limit narcotic -- treat active infection/supportive care Hypomagnesemia 12/16/2020 12/17/2020 Last Assessment & Plan: Assessment: Hypomagnesemia PLAN: -Magnesium sulfate 2 gm IV x 1. -Monitor: signs, symptoms, disease progression, disease regression. -Evaluate: test results, medication effectiveness, response to treatment. Hypophosphataemia 12/16/2020 12/17/2020 Last Assessment & Plan: Assessment: Hypophosphatemia PLAN: -Sodium phosphate 30 mmol IV x 1. -Monitor: signs, symptoms, disease progression, disease regression. -Evaluate: test results, medication effectiveness, response to treatment. 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 coli) 021 12/17/2020 Last Assessment & Plan: Assessment: 12/17 patient is tachycardic, hypotensive, lactate elevated, given some pressors and fluid by Amet, Blood culture pending. 12/16 UA and Ucx grow GNB. Started on zosyn. PLAN: - Zosyn - Follow up culture - Keep Map >65, pressors as needed, currently on Levo Hemodynamic instability 12/17/2020 02/28/20 21 Last Assessment & Plan: Assessment: Likely urosepsis, on levo gtt PLAN: Keep Map >65, pressors as needed, currently on Levo Sepsis due to Gram-negative organism with septic shock 12/17/2020 12/22/2020 Last Assessment & Plan: Assessment: - Proteus identified in blood and urine, bourgeois-sensitive - Showed great improvement over the last 2 days - Now off pressors and extubated. PLAN: - Amikacin re-dosed 12/19. Continue zosyn - CT chest/abdomen/pelvis to assess for potential additional sources of infection was unremarkable. - Follow up C/S - Stress dose steroids Acute postoperative respiratory insufficiency 12/22/2020 Last Assessment & Plan: Assessment: - PTX on 12/18 CXR, s/p 14Fr pigtail. This has been repositioned as needed. - Currently extubated with adequate O2 saturations on room air PLAN: - Monitor respiratory status. - Will assess tpday for Pigtail removal BRITTANY (acute kidney injury) 12/17/20202020 Last Assessment & Plan: Assessment: - Resolving, likely prerenal versus less likely ATN given speed of improvement - Solute clearance appropriate - UOP good volume - New almanza inserted 12/17 PLAN: - Continue resuscitation - Trend CMP Delirium 12/16/2020 12/22/2020 Last Assessment & Plan: Delirium likely 2/2 infection. Geriatrics has been following PLAN: -- continue oxycodone 2.5-5mg every 4 hours as needed for pain (NGT) -- limit narcotic -- treat active infection/supportive care Hypomagnesemia 12/16/2020 12/17/2020 Last Assessment & Plan: Assessment: Hypomagnesemia PLAN: -Magnesium sulfate 2 gm IV x 1. -Monitor: signs, symptoms, disease progression, disease regression. -Evaluate: test results, medication effectiveness, response to treatment. Hypophosphataemia 12/16/2020 12/17/2020 Last Assessment & Plan: Assessment: Hypophosphatemia PLAN: -Sodium phosphate 30 mmol IV x 1. -Monitor: signs, symptoms, disease progression, disease regression. -Evaluate: test results, medication effectiveness, response to treatment. 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 coli) 021 12/17/2020 Last Assessment & Plan: Assessment: 12/17 patient is tachycardic, hypotensive, lactate elevated, given some pressors and fluid by Amet, Blood culture pending. 12/16 UA and Ucx grow GNB. Started on zosyn. PLAN: - Zosyn - Follow up culture - Keep Map >65, pressors as needed, currently on Levo Hemodynamic instability 12/17/2020 02/28/20 Last Assessment & Plan: Assessment: Likely urosepsis, on levo gtt PLAN: Keep Map >65, pressors as needed, currently on Levo Sepsis due to Gram-negative organism with septic shock 12/17/2020 12/22/2020 Last Assessment & Plan: Assessment: - Proteus identified in blood and urine, bourgeois-sensitive - Showed great improvement over the last 2 days - Now off pressors and extubated. PLAN: - Amikacin re-dosed 12/19. Continue zosyn - CT chest/abdomen/pelvis to assess for potential additional sources of infection was unremarkable. - Follow up C/S - Stress dose steroids Acute postoperative respiratory insufficiency 12/22/2020 Last Assessment & Plan: Assessment: - PTX on 12/18 CXR, s/p 14Fr pigtail. This has been repositioned as needed. - Currently extubated with adequate O2 saturations on room air PLAN: - Monitor respiratory status. - Will assess tpday for Pigtail removal BRITTANY (acute kidney injury) 12/17/20202020 Last Assessment & Plan: Assessment: - Resolving, likely prerenal versus less likely ATN given speed of improvement - Solute clearance appropriate - UOP good volume - New almanza inserted 12/17 PLAN: - Continue resuscitation - Trend CMP Delirium 12/16/2020 12/22/2020 Last Assessment & Plan: Delirium likely 2/2 infection. Geriatrics has been following PLAN: -- continue oxycodone 2.5-5mg every 4 hours as needed for pain (NGT) -- limit narcotic -- treat active infection/supportive care Hypomagnesemia 12/16/2020 12/17/2020 Last Assessment & Plan: Assessment: Hypomagnesemia PLAN: -Magnesium sulfate 2 gm IV x 1. -Monitor: signs, symptoms, disease progression, disease regression. -Evaluate: test results, medication effectiveness, response to treatment. Hypophosphataemia 12/16/2020 12/17/2020 Last Assessment & Plan: Assessment: Hypophosphatemia PLAN: -Sodium phosphate 30 mmol IV x 1. -Monitor: signs, symptoms, disease progression, disease regression. -Evaluate: test results, medication effectiveness, response to treatment. 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 coli) 021 12/17/2020 Last Assessment & Plan: Assessment: 12/17 patient is tachycardic, hypotensive, lactate elevated, given some pressors and fluid by Amet, Blood culture pending. 12/16 UA and Ucx grow GNB. Started on zosyn. PLAN: - Zosyn - Follow up culture - Keep Map >65, pressors as needed, currently on Levo Hemodynamic instability 12/17/2020 02/28/20 Last Assessment & Plan: Assessment: Likely urosepsis, on levo gtt PLAN: Keep Map >65, pressors as needed, currently on Levo Sepsis due to Gram-negative organism with septic shock 12/17/2020 12/22/2020 Last Assessment & Plan: Assessment: - Proteus identified in blood and urine, bourgeois-sensitive - Showed great improvement over the last 2 days - Now off pressors and extubated. PLAN: - Amikacin re-dosed 12/19. Continue zosyn - CT chest/abdomen/pelvis to assess for potential additional sources of infection was unremarkable. - Follow up C/S - Stress dose steroids Acute postoperative respiratory insufficiency 12/22/2020 Last Assessment & Plan: Assessment: - PTX on 12/18 CXR, s/p 14Fr pigtail. This has been repositioned as needed. - Currently extubated with adequate O2 saturations on room air PLAN: - Monitor respiratory status. - Will assess tpday for Pigtail removal BRITTANY (acute kidney injury) 12/17/20202020 Last Assessment & Plan: Assessment: - Resolving, likely prerenal versus less likely ATN given speed of improvement - Solute clearance appropriate - UOP good volume - New almanza inserted 12/17 PLAN: - Continue resuscitation - Trend CMP Delirium 12/16/2020 12/22/2020 Last Assessment & Plan: Delirium likely 2/2 infection. Geriatrics has been following PLAN: -- continue oxycodone 2.5-5mg every 4 hours as needed for pain (NGT) -- limit narcotic -- treat active infection/supportive care Hypomagnesemia 12/16/2020 12/17/2020 Last Assessment & Plan: Assessment: Hypomagnesemia PLAN: -Magnesium sulfate 2 gm IV x 1. -Monitor: signs, symptoms, disease progression, disease regression. -Evaluate: test results, medication effectiveness, response to treatment. Hypophosphataemia 12/16/2020 12/17/2020 Last Assessment & Plan: Assessment: Hypophosphatemia PLAN: -Sodium phosphate 30 mmol IV x 1. -Monitor: signs, symptoms, disease progression, disease regression. -Evaluate: test results, medication effectiveness, response to treatment. 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 coli) 021 12/17/2020 Last Assessment & Plan: Assessment: 12/17 patient is tachycardic, hypotensive, lactate elevated, given some pressors and fluid by Amet, Blood culture pending. 12/16 UA and Ucx grow GNB. Started on zosyn. PLAN: - Zosyn - Follow up culture - Keep Map >65, pressors as needed, currently on Levo Hemodynamic instability 12/17/2020 02/28/20 Last Assessment & Plan: Assessment: Likely urosepsis, on levo gtt PLAN: Keep Map >65, pressors as needed, currently on Levo Sepsis due to Gram-negative organism with septic shock 12/17/2020 12/22/2020 Last Assessment & Plan: Assessment: - Proteus identified in blood and urine, bourgeois-sensitive - Showed great improvement over the last 2 days - Now off pressors and extubated. PLAN: - Amikacin re-dosed 12/19. Continue zosyn - CT chest/abdomen/pelvis to assess for potential additional sources of infection was unremarkable. - Follow up C/S - Stress dose steroids Acute postoperative respiratory insufficiency 12/22/2020 Last Assessment & Plan: Assessment: - PTX on 12/18 CXR, s/p 14Fr pigtail. This has been repositioned as needed. - Currently extubated with adequate O2 saturations on room air PLAN: - Monitor respiratory status. - Will assess tpday for Pigtail removal BRITTANY (acute kidney injury) 12/17/20202020 Last Assessment & Plan: Assessment: - Resolving, likely prerenal versus less likely ATN given speed of improvement - Solute clearance appropriate - UOP good volume - New almanza inserted 12/17 PLAN: - Continue resuscitation - Trend CMP Delirium 12/16/2020 12/22/2020 Last Assessment & Plan: Delirium likely 2/2 infection. Geriatrics has been following PLAN: -- continue oxycodone 2.5-5mg every 4 hours as needed for pain (NGT) -- limit narcotic -- treat active infection/supportive care Hypomagnesemia 12/16/2020 12/17/2020 Last Assessment & Plan: Assessment: Hypomagnesemia PLAN: -Magnesium sulfate 2 gm IV x 1. -Monitor: signs, symptoms, disease progression, disease regression. -Evaluate: test results, medication effectiveness, response to treatment. Hypophosphataemia 12/16/2020 12/17/2020 Last Assessment & Plan: Assessment: Hypophosphatemia PLAN: -Sodium phosphate 30 mmol IV x 1. -Monitor: signs, symptoms, disease progression, disease regression. -Evaluate: test results, medication effectiveness, response to treatment. 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 coli) 021 12/17/2020 Last Assessment & Plan: Assessment: 12/17 patient is tachycardic, hypotensive, lactate elevated, given some pressors and fluid by Amet, Blood culture pending. 12/16 UA and Ucx grow GNB. Started on zosyn. PLAN: - Zosyn - Follow up culture - Keep Map >65, pressors as needed, currently on Levo Hemodynamic instability 12/17/2020 02/28/20 Last Assessment & Plan: Assessment: Likely urosepsis, on levo gtt PLAN: Keep Map >65, pressors as needed, currently on Levo Sepsis due to Gram-negative organism with septic shock 12/17/2020 12/22/2020 Last Assessment & Plan: Assessment: - Proteus identified in blood and urine, bourgeois-sensitive - Showed great improvement over the last 2 days - Now off pressors and extubated. PLAN: - Amikacin re-dosed 12/19. Continue zosyn - CT chest/abdomen/pelvis to assess for potential additional sources of infection was unremarkable. - Follow up C/S - Stress dose steroids Acute postoperative respiratory insufficiency 12/22/2020 Last Assessment & Plan: Assessment: - PTX on 12/18 CXR, s/p 14Fr pigtail. This has been repositioned as needed. - Currently extubated with adequate O2 saturations on room air PLAN: - Monitor respiratory status. - Will assess tpday for Pigtail removal BRITTANY (acute kidney injury) 12/17/20202020 Last Assessment & Plan: Assessment: - Resolving, likely prerenal versus less likely ATN given speed of improvement - Solute clearance appropriate - UOP good volume - New almanza inserted 12/17 PLAN: - Continue resuscitation - Trend CMP Delirium 12/16/2020 12/22/2020 Last Assessment & Plan: Delirium likely 2/2 infection. Geriatrics has been following PLAN: -- continue oxycodone 2.5-5mg every 4 hours as needed for pain (NGT) -- limit narcotic -- treat active infection/supportive care Hypomagnesemia 12/16/2020 12/17/2020 Last Assessment & Plan: Assessment: Hypomagnesemia PLAN: -Magnesium sulfate 2 gm IV x 1. -Monitor: signs, symptoms, disease progression, disease regression. -Evaluate: test results, medication effectiveness, response to treatment. Hypophosphataemia 12/16/2020 12/17/2020 Last Assessment & Plan: Assessment: Hypophosphatemia PLAN: -Sodium phosphate 30 mmol IV x 1. -Monitor: signs, symptoms, disease progression, disease regression. -Evaluate: test results, medication effectiveness, response to treatment. 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 coli) 021 12/17/2020 Last Assessment & Plan: Assessment: 12/17 patient is tachycardic, hypotensive, lactate elevated, given some pressors and fluid by Amet, Blood culture pending. 12/16 UA and Ucx grow GNB. Started on zosyn. PLAN: - Zosyn - Follow up culture - Keep Map >65, pressors as needed, currently on Levo Hemodynamic instability 12/17/2020 02/28/20 Last Assessment & Plan: Assessment: Likely urosepsis, on levo gtt PLAN: Keep Map >65, pressors as needed, currently on Levo Sepsis due to Gram-negative organism with septic shock 12/17/2020 12/22/2020 Last Assessment & Plan: Assessment: - Proteus identified in blood and urine, bourgeois-sensitive - Showed great improvement over the last 2 days - Now off pressors and extubated. PLAN: - Amikacin re-dosed 12/19. Continue zosyn - CT chest/abdomen/pelvis to assess for potential additional sources of infection was unremarkable. - Follow up C/S - Stress dose steroids Acute postoperative respiratory insufficiency 12/22/2020 Last Assessment & Plan: Assessment: - PTX on 12/18 CXR, s/p 14Fr pigtail. This has been repositioned as needed. - Currently extubated with adequate O2 saturations on room air PLAN: - Monitor respiratory status. - Will assess tpday for Pigtail removal BRITTANY (acute kidney injury) 12/17/20202020 Last Assessment & Plan: Assessment: - Resolving, likely prerenal versus less likely ATN given speed of improvement - Solute clearance appropriate - UOP good volume - New almanza inserted 12/17 PLAN: - Continue resuscitation - Trend CMP Delirium 12/16/2020 12/22/2020 Last Assessment & Plan: Delirium likely 2/2 infection. Geriatrics has been following PLAN: -- continue oxycodone 2.5-5mg every 4 hours as needed for pain (NGT) -- limit narcotic -- treat active infection/supportive care Hypomagnesemia 12/16/2020 12/17/2020 Last Assessment & Plan: Assessment: Hypomagnesemia PLAN: -Magnesium sulfate 2 gm IV x 1. -Monitor: signs, symptoms, disease progression, disease regression. -Evaluate: test results, medication effectiveness, response to treatment. Hypophosphataemia 12/16/2020 12/17/2020 Last Assessment & Plan: Assessment: Hypophosphatemia PLAN: -Sodium phosphate 30 mmol IV x 1. -Monitor: signs, symptoms, disease progression, disease regression. -Evaluate: test results, medication effectiveness, response to treatment. 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 coli) 021 12/17/2020 Last Assessment & Plan: Assessment: 12/17 patient is tachycardic, hypotensive, lactate elevated, given some pressors and fluid by Amet, Blood culture pending. 12/16 UA and Ucx grow GNB. Started on zosyn. PLAN: - Zosyn - Follow up culture - Keep Map >65, pressors as needed, currently on Levo Hemodynamic instability 12/17/2020 02/28/20 Last Assessment & Plan: Assessment: Likely urosepsis, on levo gtt PLAN: Keep Map >65, pressors as needed, currently on Levo Sepsis due to Gram-negative organism with septic shock 12/17/2020 12/22/2020 Last Assessment & Plan: Assessment: - Proteus identified in blood and urine, bourgeois-sensitive - Showed great improvement over the last 2 days - Now off pressors and extubated. PLAN: - Amikacin re-dosed 12/19. Continue zosyn - CT chest/abdomen/pelvis to assess for potential additional sources of infection was unremarkable. - Follow up C/S - Stress dose steroids Acute postoperative respiratory insufficiency 12/22/2020 Last Assessment & Plan: Assessment: - PTX on 12/18 CXR, s/p 14Fr pigtail. This has been repositioned as needed. - Currently extubated with adequate O2 saturations on room air PLAN: - Monitor respiratory status. - Will assess tpday for Pigtail removal BRITTANY (acute kidney injury) 12/17/20202020 Last Assessment & Plan: Assessment: - Resolving, likely prerenal versus less likely ATN given speed of improvement - Solute clearance appropriate - UOP good volume - New almanza inserted 12/17 PLAN: - Continue resuscitation - Trend CMP Delirium 12/16/2020 12/22/2020 Last Assessment & Plan: Delirium likely 2/2 infection. Geriatrics has been following PLAN: -- continue oxycodone 2.5-5mg every 4 hours as needed for pain (NGT) -- limit narcotic -- treat active infection/supportive care Hypomagnesemia 12/16/2020 12/17/2020 Last Assessment & Plan: Assessment: Hypomagnesemia PLAN: -Magnesium sulfate 2 gm IV x 1. -Monitor: signs, symptoms, disease progression, disease regression. -Evaluate: test results, medication effectiveness, response to treatment. Hypophosphataemia 12/16/2020 12/17/2020 Last Assessment & Plan: Assessment: Hypophosphatemia PLAN: -Sodium phosphate 30 mmol IV x 1. -Monitor: signs, symptoms, disease progression, disease regression. -Evaluate: test results, medication effectiveness, response to treatment. 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 coli) 021 12/17/2020 Last Assessment & Plan: Assessment: 12/17 patient is tachycardic, hypotensive, lactate elevated, given some pressors and fluid by Amet, Blood culture pending. 12/16 UA and Ucx grow GNB. Started on zosyn. PLAN: - Zosyn - Follow up culture - Keep Map >65, pressors as needed, currently on Levo Hemodynamic instability 12/17/2020 02/28/20 21 Last Assessment & Plan: Assessment: Likely urosepsis, on levo gtt PLAN: Keep Map >65, pressors as needed, currently on Levo Sepsis due to Gram-negative organism with septic shock 12/17/2020 12/22/2020 Last Assessment & Plan: Assessment: - Proteus identified in blood and urine, bourgeois-sensitive - Showed great improvement over the last 2 days - Now off pressors and extubated. PLAN: - Amikacin re-dosed 12/19. Continue zosyn - CT chest/abdomen/pelvis to assess for potential additional sources of infection was unremarkable. - Follow up C/S - Stress dose steroids Acute postoperative respiratory insufficiency 12/22/2020 Last Assessment & Plan: Assessment: - PTX on 12/18 CXR, s/p 14Fr pigtail. This has been repositioned as needed. - Currently extubated with adequate O2 saturations on room air PLAN: - Monitor respiratory status. - Will assess tpday for Pigtail removal BRITTANY (acute kidney injury) 12/17/20202020 Last Assessment & Plan: Assessment: - Resolving, likely prerenal versus less likely ATN given speed of improvement - Solute clearance appropriate - UOP good volume - New almanza inserted 12/17 PLAN: - Continue resuscitation - Trend CMP Delirium 12/16/2020 12/22/2020 Last Assessment & Plan: Delirium likely 2/2 infection. Geriatrics has been following PLAN: -- continue oxycodone 2.5-5mg every 4 hours as needed for pain (NGT) -- limit narcotic -- treat active infection/supportive care Hypomagnesemia 12/16/2020 12/17/2020 Last Assessment & Plan: Assessment: Hypomagnesemia PLAN: -Magnesium sulfate 2 gm IV x 1. -Monitor: signs, symptoms, disease progression, disease regression. -Evaluate: test results, medication effectiveness, response to treatment. Hypophosphataemia 12/16/2020 12/17/2020 Last Assessment & Plan: Assessment: Hypophosphatemia PLAN: -Sodium phosphate 30 mmol IV x 1. -Monitor: signs, symptoms, disease progression, disease regression. -Evaluate: test results, medication effectiveness, response to treatment. 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 coli) 021 12/17/2020 Last Assessment & Plan: Assessment: 12/17 patient is tachycardic, hypotensive, lactate elevated, given some pressors and fluid by Amet, Blood culture pending. 12/16 UA and Ucx grow GNB. Started on zosyn. PLAN: - Zosyn - Follow up culture - Keep Map >65, pressors as needed, currently on Levo Hemodynamic instability 12/17/2020 02/28/20 21 Last Assessment & Plan: Assessment: Likely urosepsis, on levo gtt PLAN: Keep Map >65, pressors as needed, currently on Levo Sepsis due to Gram-negative organism with septic shock 12/17/2020 12/22/2020 Last Assessment & Plan: Assessment: - Proteus identified in blood and urine, bourgeois-sensitive - Showed great improvement over the last 2 days - Now off pressors and extubated. PLAN: - Amikacin re-dosed 12/19. Continue zosyn - CT chest/abdomen/pelvis to assess for potential additional sources of infection was unremarkable. - Follow up C/S - Stress dose steroids Acute postoperative respiratory insufficiency 12/22/2020 Last Assessment & Plan: Assessment: - PTX on 12/18 CXR, s/p 14Fr pigtail. This has been repositioned as needed. - Currently extubated with adequate O2 saturations on room air PLAN: - Monitor respiratory status. - Will assess tpday for Pigtail removal BRITTANY (acute kidney injury) 12/17/20202020 Last Assessment & Plan: Assessment: - Resolving, likely prerenal versus less likely ATN given speed of improvement - Solute clearance appropriate - UOP good volume - New almanza inserted 12/17 PLAN: - Continue resuscitation - Trend CMP Delirium 12/16/2020 12/22/2020 Last Assessment & Plan: Delirium likely 2/2 infection. Geriatrics has been following PLAN: -- continue oxycodone 2.5-5mg every 4 hours as needed for pain (NGT) -- limit narcotic -- treat active infection/supportive care Hypomagnesemia 12/16/2020 12/17/2020 Last Assessment & Plan: Assessment: Hypomagnesemia PLAN: -Magnesium sulfate 2 gm IV x 1. -Monitor: signs, symptoms, disease progression, disease regression. -Evaluate: test results, medication effectiveness, response to treatment. Hypophosphataemia 12/16/2020 12/17/2020 Last Assessment & Plan: Assessment: Hypophosphatemia PLAN: -Sodium phosphate 30 mmol IV x 1. -Monitor: signs, symptoms, disease progression, disease regression. -Evaluate: test results, medication effectiveness, response to treatment. 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 coli) 021 12/17/2020 Last Assessment & Plan: Assessment: 12/17 patient is tachycardic, hypotensive, lactate elevated, given some pressors and fluid by Amet, Blood culture pending. 12/16 UA and Ucx grow GNB. Started on zosyn. PLAN: - Zosyn - Follow up culture - Keep Map >65, pressors as needed, currently on Levo Hemodynamic instability 12/17/2020 02/28/20 21 Last Assessment & Plan: Assessment: Likely urosepsis, on levo gtt PLAN: Keep Map >65, pressors as needed, currently on Levo Sepsis due to Gram-negative organism with septic shock 12/17/2020 12/22/2020 Last Assessment & Plan: Assessment: - Proteus identified in blood and urine, bourgeois-sensitive - Showed great improvement over the last 2 days - Now off pressors and extubated. PLAN: - Amikacin re-dosed 12/19. Continue zosyn - CT chest/abdomen/pelvis to assess for potential additional sources of infection was unremarkable. - Follow up C/S - Stress dose steroids Acute postoperative respiratory insufficiency 12/22/2020 Last Assessment & Plan: Assessment: - PTX on 12/18 CXR, s/p 14Fr pigtail. This has been repositioned as needed. - Currently extubated with adequate O2 saturations on room air PLAN: - Monitor respiratory status. - Will assess tpday for Pigtail removal BRITTANY (acute kidney injury) 12/17/20202020 Last Assessment & Plan: Assessment: - Resolving, likely prerenal versus less likely ATN given speed of improvement - Solute clearance appropriate - UOP good volume - New almanza inserted 12/17 PLAN: - Continue resuscitation - Trend CMP Delirium 12/16/2020 12/22/2020 Last Assessment & Plan: Delirium likely 2/2 infection. Geriatrics has been following PLAN: -- continue oxycodone 2.5-5mg every 4 hours as needed for pain (NGT) -- limit narcotic -- treat active infection/supportive care Hypomagnesemia 12/16/2020 12/17/2020 Last Assessment & Plan: Assessment: Hypomagnesemia PLAN: -Magnesium sulfate 2 gm IV x 1. -Monitor: signs, symptoms, disease progression, disease regression. -Evaluate: test results, medication effectiveness, response to treatment. Hypophosphataemia 12/16/2020 12/17/2020 Last Assessment & Plan: Assessment: Hypophosphatemia PLAN: -Sodium phosphate 30 mmol IV x 1. -Monitor: signs, symptoms, disease progression, disease regression. -Evaluate: test results, medication effectiveness, response to treatment. 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 coli) 021 12/17/2020 Last Assessment & Plan: Assessment: 12/17 patient is tachycardic, hypotensive, lactate elevated, given some pressors and fluid by Amet, Blood culture pending. 12/16 UA and Ucx grow GNB. Started on zosyn. PLAN: - Zosyn - Follow up culture - Keep Map >65, pressors as needed, currently on Levo Hemodynamic instability 12/17/2020 02/28/20 21 Last Assessment & Plan: Assessment: Likely urosepsis, on levo gtt PLAN: Keep Map >65, pressors as needed, currently on Levo Sepsis due to Gram-negative organism with septic shock 12/17/2020 12/22/2020 Last Assessment & Plan: Assessment: - Proteus identified in blood and urine, bourgeois-sensitive - Showed great improvement over the last 2 days - Now off pressors and extubated. PLAN: - Amikacin re-dosed 12/19. Continue zosyn - CT chest/abdomen/pelvis to assess for potential additional sources of infection was unremarkable. - Follow up C/S - Stress dose steroids Acute postoperative respiratory insufficiency 12/22/2020 Last Assessment & Plan: Assessment: - PTX on 12/18 CXR, s/p 14Fr pigtail. This has been repositioned as needed. - Currently extubated with adequate O2 saturations on room air PLAN: - Monitor respiratory status. - Will assess tpday for Pigtail removal BRITTANY (acute kidney injury) 12/17/20202020 Last Assessment & Plan: Assessment: - Resolving, likely prerenal versus less likely ATN given speed of improvement - Solute clearance appropriate - UOP good volume - New almanza inserted 12/17 PLAN: - Continue resuscitation - Trend CMP Delirium 12/16/2020 12/22/2020 Last Assessment & Plan: Delirium likely 2/2 infection. Geriatrics has been following PLAN: -- continue oxycodone 2.5-5mg every 4 hours as needed for pain (NGT) -- limit narcotic -- treat active infection/supportive care Hypomagnesemia 12/16/2020 12/17/2020 Last Assessment & Plan: Assessment: Hypomagnesemia PLAN: -Magnesium sulfate 2 gm IV x 1. -Monitor: signs, symptoms, disease progression, disease regression. -Evaluate: test results, medication effectiveness, response to treatment. Hypophosphataemia 12/16/2020 12/17/2020 Last Assessment & Plan: Assessment: Hypophosphatemia PLAN: -Sodium phosphate 30 mmol IV x 1. -Monitor: signs, symptoms, disease progression, disease regression. -Evaluate: test results, medication effectiveness, response to treatment. 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 coli) 021 12/17/2020 Last Assessment & Plan: Assessment: 12/17 patient is tachycardic, hypotensive, lactate elevated, given some pressors and fluid by Amet, Blood culture pending. 12/16 UA and Ucx grow GNB. Started on zosyn. PLAN: - Zosyn - Follow up culture - Keep Map >65, pressors as needed, currently on Levo Hemodynamic instability 12/17/2020 02/28/20 21 Last Assessment & Plan: Assessment: Likely urosepsis, on levo gtt PLAN: Keep Map >65, pressors as needed, currently on Levo Sepsis due to Gram-negative organism with septic shock 12/17/2020 12/22/2020 Last Assessment & Plan: Assessment: - Proteus identified in blood and urine, bourgeois-sensitive - Showed great improvement over the last 2 days - Now off pressors and extubated. PLAN: - Amikacin re-dosed 12/19. Continue zosyn - CT chest/abdomen/pelvis to assess for potential additional sources of infection was unremarkable. - Follow up C/S - Stress dose steroids Acute postoperative respiratory insufficiency 12/22/2020 Last Assessment & Plan: Assessment: - PTX on 12/18 CXR, s/p 14Fr pigtail. This has been repositioned as needed. - Currently extubated with adequate O2 saturations on room air PLAN: - Monitor respiratory status. - Will assess tpday for Pigtail removal BRITTANY (acute kidney injury) 12/17/20202020 Last Assessment & Plan: Assessment: - Resolving, likely prerenal versus less likely ATN given speed of improvement - Solute clearance appropriate - UOP good volume - New almanza inserted 12/17 PLAN: - Continue resuscitation - Trend CMP Delirium 12/16/2020 12/22/2020 Last Assessment & Plan: Delirium likely 2/2 infection. Geriatrics has been following PLAN: -- continue oxycodone 2.5-5mg every 4 hours as needed for pain (NGT) -- limit narcotic -- treat active infection/supportive care Hypomagnesemia 12/16/2020 12/17/2020 Last Assessment & Plan: Assessment: Hypomagnesemia PLAN: -Magnesium sulfate 2 gm IV x 1. -Monitor: signs, symptoms, disease progression, disease regression. -Evaluate: test results, medication effectiveness, response to treatment. Hypophosphataemia 12/16/2020 12/17/2020 Last Assessment & Plan: Assessment: Hypophosphatemia PLAN: -Sodium phosphate 30 mmol IV x 1. -Monitor: signs, symptoms, disease progression, disease regression. -Evaluate: test results, medication effectiveness, response to treatment. 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 coli) 021 12/17/2020 Last Assessment & Plan: Assessment: 12/17 patient is tachycardic, hypotensive, lactate elevated, given some pressors and fluid by Amet, Blood culture pending. 12/16 UA and Ucx grow GNB. Started on zosyn. PLAN: - Zosyn - Follow up culture - Keep Map >65, pressors as needed, currently on Levo Hemodynamic instability 12/17/2020 02/28/20 Last Assessment & Plan: Assessment: Likely urosepsis, on levo gtt PLAN: Keep Map >65, pressors as needed, currently on Levo Sepsis due to Gram-negative organism with septic shock 12/17/2020 12/22/2020 Last Assessment & Plan: Assessment: - Proteus identified in blood and urine, bourgeois-sensitive - Showed great improvement over the last 2 days - Now off pressors and extubated. PLAN: - Amikacin re-dosed 12/19. Continue zosyn - CT chest/abdomen/pelvis to assess for potential additional sources of infection was unremarkable. - Follow up C/S - Stress dose steroids Acute postoperative respiratory insufficiency 12/22/2020 Last Assessment & Plan: Assessment: - PTX on 12/18 CXR, s/p 14Fr pigtail. This has been repositioned as needed. - Currently extubated with adequate O2 saturations on room air PLAN: - Monitor respiratory status. - Will assess tpday for Pigtail removal BRITTANY (acute kidney injury) 12/17/20202020 Last Assessment & Plan: Assessment: - Resolving, likely prerenal versus less likely ATN given speed of improvement - Solute clearance appropriate - UOP good volume - New almanza inserted 12/17 PLAN: - Continue resuscitation - Trend CMP Delirium 12/16/2020 12/22/2020 Last Assessment & Plan: Delirium likely 2/2 infection. Geriatrics has been following PLAN: -- continue oxycodone 2.5-5mg every 4 hours as needed for pain (NGT) -- limit narcotic -- treat active infection/supportive care Hypomagnesemia 12/16/2020 12/17/2020 Last Assessment & Plan: Assessment: Hypomagnesemia PLAN: -Magnesium sulfate 2 gm IV x 1. -Monitor: signs, symptoms, disease progression, disease regression. -Evaluate: test results, medication effectiveness, response to treatment. Hypophosphataemia 12/16/2020 12/17/2020 Last Assessment & Plan: Assessment: Hypophosphatemia PLAN: -Sodium phosphate 30 mmol IV x 1. -Monitor: signs, symptoms, disease progression, disease regression. -Evaluate: test results, medication effectiveness, response to treatment. 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 coli) 021 12/17/2020 Last Assessment & Plan: Assessment: 12/17 patient is tachycardic, hypotensive, lactate elevated, given some pressors and fluid by Amet, Blood culture pending. 12/16 UA and Ucx grow GNB. Started on zosyn. PLAN: - Zosyn - Follow up culture - Keep Map >65, pressors as needed, currently on Levo Hemodynamic instability 12/17/2020 02/28/20 Last Assessment & Plan: Assessment: Likely urosepsis, on levo gtt PLAN: Keep Map >65, pressors as needed, currently on Levo Sepsis due to Gram-negative organism with septic shock 12/17/2020 12/22/2020 Last Assessment & Plan: Assessment: - Proteus identified in blood and urine, bourgeois-sensitive - Showed great improvement over the last 2 days - Now off pressors and extubated. PLAN: - Amikacin re-dosed 12/19. Continue zosyn - CT chest/abdomen/pelvis to assess for potential additional sources of infection was unremarkable. - Follow up C/S - Stress dose steroids Acute postoperative respiratory insufficiency 12/22/2020 Last Assessment & Plan: Assessment: - PTX on 12/18 CXR, s/p 14Fr pigtail. This has been repositioned as needed. - Currently extubated with adequate O2 saturations on room air PLAN: - Monitor respiratory status. - Will assess tpday for Pigtail removal BRITTANY (acute kidney injury) 12/17/20201 Last Assessment & Plan: Assessment: - Resolving, likely prerenal versus less likely ATN given speed of improvement - Solute clearance appropriate - UOP good volume - New almanza inserted 12/17 PLAN: - Continue resuscitation - Trend CMP Delirium 12/16/2020 12/22/2020 Last Assessment & Plan: Delirium likely 2/2 infection. Geriatrics has been following PLAN: -- continue oxycodone 2.5-5mg every 4 hours as needed for pain (NGT) -- limit narcotic -- treat active infection/supportive care Hypomagnesemia 12/16/2020 12/17/2020 Last Assessment & Plan: Assessment: Hypomagnesemia PLAN: -Magnesium sulfate 2 gm IV x 1. -Monitor: signs, symptoms, disease progression, disease regression. -Evaluate: test results, medication effectiveness, response to treatment. Hypophosphataemia 12/16/2020 12/17/2020 Last Assessment & Plan: Assessment: Hypophosphatemia PLAN: -Sodium phosphate 30 mmol IV x 1. -Monitor: signs, symptoms, disease progression, disease regression. -Evaluate: test results, medication effectiveness, response to treatment. 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 coli) 021 12/17/2020 Last Assessment & Plan: Assessment: 12/17 patient is tachycardic, hypotensive, lactate elevated, given some pressors and fluid by Amet, Blood culture pending. 12/16 UA and Ucx grow GNB. Started on zosyn. PLAN: - Zosyn - Follow up culture - Keep Map >65, pressors as needed, currently on Levo Hemodynamic instability 12/17/2020 02/28/20 Last Assessment & Plan: Assessment: Likely urosepsis, on levo gtt PLAN: Keep Map >65, pressors as needed, currently on Levo Sepsis due to Gram-negative organism with septic shock 12/17/2020 12/22/2020 Last Assessment & Plan: Assessment: - Proteus identified in blood and urine, bourgeois-sensitive - Showed great improvement over the last 2 days - Now off pressors and extubated. PLAN: - Amikacin re-dosed 12/19. Continue zosyn - CT chest/abdomen/pelvis to assess for potential additional sources of infection was unremarkable. - Follow up C/S - Stress dose steroids Acute postoperative respiratory insufficiency 12/22/2020 Last Assessment & Plan: Assessment: - PTX on 12/18 CXR, s/p 14Fr pigtail. This has been repositioned as needed. - Currently extubated with adequate O2 saturations on room air PLAN: - Monitor respiratory status. - Will assess tpday for Pigtail removal BRITTANY (acute kidney injury) 12/17/20202020 Last Assessment & Plan: Assessment: - Resolving, likely prerenal versus less likely ATN given speed of improvement - Solute clearance appropriate - UOP good volume - New almanza inserted 12/17 PLAN: - Continue resuscitation - Trend CMP Delirium 12/16/2020 12/22/2020 Last Assessment & Plan: Delirium likely 2/2 infection. Geriatrics has been following PLAN: -- continue oxycodone 2.5-5mg every 4 hours as needed for pain (NGT) -- limit narcotic -- treat active infection/supportive care Hypomagnesemia 12/16/2020 12/17/2020 Last Assessment & Plan: Assessment: Hypomagnesemia PLAN: -Magnesium sulfate 2 gm IV x 1. -Monitor: signs, symptoms, disease progression, disease regression. -Evaluate: test results, medication effectiveness, response to treatment. Hypophosphataemia 12/16/2020 12/17/2020 Last Assessment & Plan: Assessment: Hypophosphatemia PLAN: -Sodium phosphate 30 mmol IV x 1. -Monitor: signs, symptoms, disease progression, disease regression. -Evaluate: test results, medication effectiveness, response to treatment. 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 coli) 021 12/17/2020 Last Assessment & Plan: Assessment: 12/17 patient is tachycardic, hypotensive, lactate elevated, given some pressors and fluid by Amet, Blood culture pending. 12/16 UA and Ucx grow GNB. Started on zosyn. PLAN: - Zosyn - Follow up culture - Keep Map >65, pressors as needed, currently on Levo Hemodynamic instability 12/17/2020 02/28/20 Last Assessment & Plan: Assessment: Likely urosepsis, on levo gtt PLAN: Keep Map >65, pressors as needed, currently on Levo Sepsis due to Gram-negative organism with septic shock 12/17/2020 12/22/2020 Last Assessment & Plan: Assessment: - Proteus identified in blood and urine, bourgeois-sensitive - Showed great improvement over the last 2 days - Now off pressors and extubated. PLAN: - Amikacin re-dosed 12/19. Continue zosyn - CT chest/abdomen/pelvis to assess for potential additional sources of infection was unremarkable. - Follow up C/S - Stress dose steroids Acute postoperative respiratory insufficiency 12/22/2020 Last Assessment & Plan: Assessment: - PTX on 12/18 CXR, s/p 14Fr pigtail. This has been repositioned as needed. - Currently extubated with adequate O2 saturations on room air PLAN: - Monitor respiratory status. - Will assess tpday for Pigtail removal BRITTANY (acute kidney injury) 12/17/20202020 Last Assessment & Plan: Assessment: - Resolving, likely prerenal versus less likely ATN given speed of improvement - Solute clearance appropriate - UOP good volume - New almanza inserted 12/17 PLAN: - Continue resuscitation - Trend CMP Delirium 12/16/2020 12/22/2020 Last Assessment & Plan: Delirium likely 2/2 infection. Geriatrics has been following PLAN: -- continue oxycodone 2.5-5mg every 4 hours as needed for pain (NGT) -- limit narcotic -- treat active infection/supportive care Hypomagnesemia 12/16/2020 12/17/2020 Last Assessment & Plan: Assessment: Hypomagnesemia PLAN: -Magnesium sulfate 2 gm IV x 1. -Monitor: signs, symptoms, disease progression, disease regression. -Evaluate: test results, medication effectiveness, response to treatment. Hypophosphataemia 12/16/2020 12/17/2020 Last Assessment & Plan: Assessment: Hypophosphatemia PLAN: -Sodium phosphate 30 mmol IV x 1. -Monitor: signs, symptoms, disease progression, disease regression. -Evaluate: test results, medication effectiveness, response to treatment. 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 coli) 021 12/17/2020 Last Assessment & Plan: Assessment: 12/17 patient is tachycardic, hypotensive, lactate elevated, given some pressors and fluid by Amet, Blood culture pending. 12/16 UA and Ucx grow GNB. Started on zosyn. PLAN: - Zosyn - Follow up culture - Keep Map >65, pressors as needed, currently on Levo Hemodynamic instability 12/17/2020 02/28/20 Last Assessment & Plan: Assessment: Likely urosepsis, on levo gtt PLAN: Keep Map >65, pressors as needed, currently on Levo Sepsis due to Gram-negative organism with septic shock 12/17/2020 12/22/2020 Last Assessment & Plan: Assessment: - Proteus identified in blood and urine, bourgeois-sensitive - Showed great improvement over the last 2 days - Now off pressors and extubated. PLAN: - Amikacin re-dosed 12/19. Continue zosyn - CT chest/abdomen/pelvis to assess for potential additional sources of infection was unremarkable. - Follow up C/S - Stress dose steroids Acute postoperative respiratory insufficiency 12/22/2020 Last Assessment & Plan: Assessment: - PTX on 12/18 CXR, s/p 14Fr pigtail. This has been repositioned as needed. - Currently extubated with adequate O2 saturations on room air PLAN: - Monitor respiratory status. - Will assess tpday for Pigtail removal BRITTANY (acute kidney injury) 12/17/20202020 Last Assessment & Plan: Assessment: - Resolving, likely prerenal versus less likely ATN given speed of improvement - Solute clearance appropriate - UOP good volume - New almanza inserted 12/17 PLAN: - Continue resuscitation - Trend CMP Delirium 12/16/2020 12/22/2020 Last Assessment & Plan: Delirium likely 2/2 infection. Geriatrics has been following PLAN: -- continue oxycodone 2.5-5mg every 4 hours as needed for pain (NGT) -- limit narcotic -- treat active infection/supportive care Hypomagnesemia 12/16/2020 12/17/2020 Last Assessment & Plan: Assessment: Hypomagnesemia PLAN: -Magnesium sulfate 2 gm IV x 1. -Monitor: signs, symptoms, disease progression, disease regression. -Evaluate: test results, medication effectiveness, response to treatment. Hypophosphataemia 12/16/2020 12/17/2020 Last Assessment & Plan: Assessment: Hypophosphatemia PLAN: -Sodium phosphate 30 mmol IV x 1. -Monitor: signs, symptoms, disease progression, disease regression. -Evaluate: test results, medication effectiveness, response to treatment. 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 coli) 021 12/17/2020 Last Assessment & Plan: Assessment: 12/17 patient is tachycardic, hypotensive, lactate elevated, given some pressors and fluid by Amet, Blood culture pending. 12/16 UA and Ucx grow GNB. Started on zosyn. PLAN: - Zosyn - Follow up culture - Keep Map >65, pressors as needed, currently on Levo Hemodynamic instability 12/17/2020 02/28/20 Last Assessment & Plan: Assessment: Likely urosepsis, on levo gtt PLAN: Keep Map >65, pressors as needed, currently on Levo Sepsis due to Gram-negative organism with septic shock 12/17/2020 12/22/2020 Last Assessment & Plan: Assessment: - Proteus identified in blood and urine, bourgeois-sensitive - Showed great improvement over the last 2 days - Now off pressors and extubated. PLAN: - Amikacin re-dosed 12/19. Continue zosyn - CT chest/abdomen/pelvis to assess for potential additional sources of infection was unremarkable. - Follow up C/S - Stress dose steroids Acute postoperative respiratory insufficiency 12/22/2020 Last Assessment & Plan: Assessment: - PTX on 12/18 CXR, s/p 14Fr pigtail. This has been repositioned as needed. - Currently extubated with adequate O2 saturations on room air PLAN: - Monitor respiratory status. - Will assess tpday for Pigtail removal BRITTANY (acute kidney injury) 12/17/20202020 Last Assessment & Plan: Assessment: - Resolving, likely prerenal versus less likely ATN given speed of improvement - Solute clearance appropriate - UOP good volume - New almanza inserted 12/17 PLAN: - Continue resuscitation - Trend CMP Delirium 12/16/2020 12/22/2020 Last Assessment & Plan: Delirium likely 2/2 infection. Geriatrics has been following PLAN: -- continue oxycodone 2.5-5mg every 4 hours as needed for pain (NGT) -- limit narcotic -- treat active infection/supportive care Hypomagnesemia 12/16/2020 12/17/2020 Last Assessment & Plan: Assessment: Hypomagnesemia PLAN: -Magnesium sulfate 2 gm IV x 1. -Monitor: signs, symptoms, disease progression, disease regression. -Evaluate: test results, medication effectiveness, response to treatment. Hypophosphataemia 12/16/2020 12/17/2020 Last Assessment & Plan: Assessment: Hypophosphatemia PLAN: -Sodium phosphate 30 mmol IV x 1. -Monitor: signs, symptoms, disease progression, disease regression. -Evaluate: test results, medication effectiveness, response to treatment. 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 coli) 021 12/17/2020 Last Assessment & Plan: Assessment: 12/17 patient is tachycardic, hypotensive, lactate elevated, given some pressors and fluid by Amet, Blood culture pending. 12/16 UA and Ucx grow GNB. Started on zosyn. PLAN: - Zosyn - Follow up culture - Keep Map >65, pressors as needed, currently on Levo Hemodynamic instability 12/17/2020 02/28/20 Last Assessment & Plan: Assessment: Likely urosepsis, on levo gtt PLAN: Keep Map >65, pressors as needed, currently on Levo Sepsis due to Gram-negative organism with septic shock 12/17/2020 12/22/2020 Last Assessment & Plan: Assessment: - Proteus identified in blood and urine, bourgeois-sensitive - Showed great improvement over the last 2 days - Now off pressors and extubated. PLAN: - Amikacin re-dosed 12/19. Continue zosyn - CT chest/abdomen/pelvis to assess for potential additional sources of infection was unremarkable. - Follow up C/S - Stress dose steroids Acute postoperative respiratory insufficiency 12/22/2020 Last Assessment & Plan: Assessment: - PTX on 12/18 CXR, s/p 14Fr pigtail. This has been repositioned as needed. - Currently extubated with adequate O2 saturations on room air PLAN: - Monitor respiratory status. - Will assess tpday for Pigtail removal BRITTANY (acute kidney injury) 12/17/20202020 Last Assessment & Plan: Assessment: - Resolving, likely prerenal versus less likely ATN given speed of improvement - Solute clearance appropriate - UOP good volume - New almanza inserted 12/17 PLAN: - Continue resuscitation - Trend CMP Delirium 12/16/2020 12/22/2020 Last Assessment & Plan: Delirium likely 2/2 infection. Geriatrics has been following PLAN: -- continue oxycodone 2.5-5mg every 4 hours as needed for pain (NGT) -- limit narcotic -- treat active infection/supportive care Hypomagnesemia 12/16/2020 12/17/2020 Last Assessment & Plan: Assessment: Hypomagnesemia PLAN: -Magnesium sulfate 2 gm IV x 1. -Monitor: signs, symptoms, disease progression, disease regression. -Evaluate: test results, medication effectiveness, response to treatment. Hypophosphataemia 12/16/2020 12/17/2020 Last Assessment & Plan: Assessment: Hypophosphatemia PLAN: -Sodium phosphate 30 mmol IV x 1. -Monitor: signs, symptoms, disease progression, disease regression. -Evaluate: test results, medication effectiveness, response to treatment. 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 coli) 021 12/17/2020 Last Assessment & Plan: Assessment: 12/17 patient is tachycardic, hypotensive, lactate elevated, given some pressors and fluid by Amet, Blood culture pending. 12/16 UA and Ucx grow GNB. Started on zosyn. PLAN: - Zosyn - Follow up culture - Keep Map >65, pressors as needed, currently on Levo Hemodynamic instability 12/17/2020 02/28/20 21 Last Assessment & Plan: Assessment: Likely urosepsis, on levo gtt PLAN: Keep Map >65, pressors as needed, currently on Levo Sepsis due to Gram-negative organism with septic shock 12/17/2020 12/22/2020 Last Assessment & Plan: Assessment: - Proteus identified in blood and urine, bourgeois-sensitive - Showed great improvement over the last 2 days - Now off pressors and extubated. PLAN: - Amikacin re-dosed 12/19. Continue zosyn - CT chest/abdomen/pelvis to assess for potential additional sources of infection was unremarkable. - Follow up C/S - Stress dose steroids Acute postoperative respiratory insufficiency 12/22/2020 Last Assessment & Plan: Assessment: - PTX on 12/18 CXR, s/p 14Fr pigtail. This has been repositioned as needed. - Currently extubated with adequate O2 saturations on room air PLAN: - Monitor respiratory status. - Will assess tpday for Pigtail removal BRITTANY (acute kidney injury) 12/17/20202020 Last Assessment & Plan: Assessment: - Resolving, likely prerenal versus less likely ATN given speed of improvement - Solute clearance appropriate - UOP good volume - New almanza inserted 12/17 PLAN: - Continue resuscitation - Trend CMP Delirium 12/16/2020 12/22/2020 Last Assessment & Plan: Delirium likely 2/2 infection. Geriatrics has been following PLAN: -- continue oxycodone 2.5-5mg every 4 hours as needed for pain (NGT) -- limit narcotic -- treat active infection/supportive care Hypomagnesemia 12/16/2020 12/17/2020 Last Assessment & Plan: Assessment: Hypomagnesemia PLAN: -Magnesium sulfate 2 gm IV x 1. -Monitor: signs, symptoms, disease progression, disease regression. -Evaluate: test results, medication effectiveness, response to treatment. Hypophosphataemia 12/16/2020 12/17/2020 Last Assessment & Plan: Assessment: Hypophosphatemia PLAN: -Sodium phosphate 30 mmol IV x 1. -Monitor: signs, symptoms, disease progression, disease regression. -Evaluate: test results, medication effectiveness, response to treatment. 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 coli) 021 12/17/2020 Last Assessment & Plan: Assessment: 12/17 patient is tachycardic, hypotensive, lactate elevated, given some pressors and fluid by Amet, Blood culture pending. 12/16 UA and Ucx grow GNB. Started on zosyn. PLAN: - Zosyn - Follow up culture - Keep Map >65, pressors as needed, currently on Levo Hemodynamic instability 12/17/2020 02/28/20 21 Last Assessment & Plan: Assessment: Likely urosepsis, on levo gtt PLAN: Keep Map >65, pressors as needed, currently on Levo Sepsis due to Gram-negative organism with septic shock 12/17/2020 12/22/2020 Last Assessment & Plan: Assessment: - Proteus identified in blood and urine, bourgeois-sensitive - Showed great improvement over the last 2 days - Now off pressors and extubated. PLAN: - Amikacin re-dosed 12/19. Continue zosyn - CT chest/abdomen/pelvis to assess for potential additional sources of infection was unremarkable. - Follow up C/S - Stress dose steroids Acute postoperative respiratory insufficiency 12/22/2020 Last Assessment & Plan: Assessment: - PTX on 12/18 CXR, s/p 14Fr pigtail. This has been repositioned as needed. - Currently extubated with adequate O2 saturations on room air PLAN: - Monitor respiratory status. - Will assess tpday for Pigtail removal BRITTANY (acute kidney injury) 12/17/20202020 Last Assessment & Plan: Assessment: - Resolving, likely prerenal versus less likely ATN given speed of improvement - Solute clearance appropriate - UOP good volume - New almanza inserted 12/17 PLAN: - Continue resuscitation - Trend CMP Delirium 12/16/2020 12/22/2020 Last Assessment & Plan: Delirium likely 2/2 infection. Geriatrics has been following PLAN: -- continue oxycodone 2.5-5mg every 4 hours as needed for pain (NGT) -- limit narcotic -- treat active infection/supportive care Hypomagnesemia 12/16/2020 12/17/2020 Last Assessment & Plan: Assessment: Hypomagnesemia PLAN: -Magnesium sulfate 2 gm IV x 1. -Monitor: signs, symptoms, disease progression, disease regression. -Evaluate: test results, medication effectiveness, response to treatment. Hypophosphataemia 12/16/2020 12/17/2020 Last Assessment & Plan: Assessment: Hypophosphatemia PLAN: -Sodium phosphate 30 mmol IV x 1. -Monitor: signs, symptoms, disease progression, disease regression. -Evaluate: test results, medication effectiveness, response to treatment. 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 coli) 021 12/17/2020 Last Assessment & Plan: Assessment: 12/17 patient is tachycardic, hypotensive, lactate elevated, given some pressors and fluid by Amet, Blood culture pending. 12/16 UA and Ucx grow GNB. Started on zosyn. PLAN: - Zosyn - Follow up culture - Keep Map >65, pressors as needed, currently on Levo Hemodynamic instability 12/17/2020 02/28/20 21 Last Assessment & Plan: Assessment: Likely urosepsis, on levo gtt PLAN: Keep Map >65, pressors as needed, currently on Levo Sepsis due to Gram-negative organism with septic shock 12/17/2020 12/22/2020 Last Assessment & Plan: Assessment: - Proteus identified in blood and urine, bourgeois-sensitive - Showed great improvement over the last 2 days - Now off pressors and extubated. PLAN: - Amikacin re-dosed 12/19. Continue zosyn - CT chest/abdomen/pelvis to assess for potential additional sources of infection was unremarkable. - Follow up C/S - Stress dose steroids Acute postoperative respiratory insufficiency 12/22/2020 Last Assessment & Plan: Assessment: - PTX on 12/18 CXR, s/p 14Fr pigtail. This has been repositioned as needed. - Currently extubated with adequate O2 saturations on room air PLAN: - Monitor respiratory status. - Will assess tpday for Pigtail removal BRITTANY (acute kidney injury) 12/17/20202020 Last Assessment & Plan: Assessment: - Resolving, likely prerenal versus less likely ATN given speed of improvement - Solute clearance appropriate - UOP good volume - New almanza inserted 12/17 PLAN: - Continue resuscitation - Trend CMP Delirium 12/16/2020 12/22/2020 Last Assessment & Plan: Delirium likely 2/2 infection. Geriatrics has been following PLAN: -- continue oxycodone 2.5-5mg every 4 hours as needed for pain (NGT) -- limit narcotic -- treat active infection/supportive care Hypomagnesemia 12/16/2020 12/17/2020 Last Assessment & Plan: Assessment: Hypomagnesemia PLAN: -Magnesium sulfate 2 gm IV x 1. -Monitor: signs, symptoms, disease progression, disease regression. -Evaluate: test results, medication effectiveness, response to treatment. Hypophosphataemia 12/16/2020 12/17/2020 Last Assessment & Plan: Assessment: Hypophosphatemia PLAN: -Sodium phosphate 30 mmol IV x 1. -Monitor: signs, symptoms, disease progression, disease regression. -Evaluate: test results, medication effectiveness, response to treatment. 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 coli) 021 12/17/2020 Last Assessment & Plan: Assessment: 12/17 patient is tachycardic, hypotensive, lactate elevated, given some pressors and fluid by Amet, Blood culture pending. 12/16 UA and Ucx grow GNB. Started on zosyn. PLAN: - Zosyn - Follow up culture - Keep Map >65, pressors as needed, currently on Levo Hemodynamic instability 12/17/2020 02/28/20 Last Assessment & Plan: Assessment: Likely urosepsis, on levo gtt PLAN: Keep Map >65, pressors as needed, currently on Levo Sepsis due to Gram-negative organism with septic shock 12/17/2020 12/22/2020 Last Assessment & Plan: Assessment: - Proteus identified in blood and urine, bourgeois-sensitive - Showed great improvement over the last 2 days - Now off pressors and extubated. PLAN: - Amikacin re-dosed 12/19. Continue zosyn - CT chest/abdomen/pelvis to assess for potential additional sources of infection was unremarkable. - Follow up C/S - Stress dose steroids Acute postoperative respiratory insufficiency 12/22/2020 Last Assessment & Plan: Assessment: - PTX on 12/18 CXR, s/p 14Fr pigtail. This has been repositioned as needed. - Currently extubated with adequate O2 saturations on room air PLAN: - Monitor respiratory status. - Will assess tpday for Pigtail removal BRITTANY (acute kidney injury) 12/17/20202020 Last Assessment & Plan: Assessment: - Resolving, likely prerenal versus less likely ATN given speed of improvement - Solute clearance appropriate - UOP good volume - New almanza inserted 12/17 PLAN: - Continue resuscitation - Trend CMP Delirium 12/16/2020 12/22/2020 Last Assessment & Plan: Delirium likely 2/2 infection. Geriatrics has been following PLAN: -- continue oxycodone 2.5-5mg every 4 hours as needed for pain (NGT) -- limit narcotic -- treat active infection/supportive care Hypomagnesemia 12/16/2020 12/17/2020 Last Assessment & Plan: Assessment: Hypomagnesemia PLAN: -Magnesium sulfate 2 gm IV x 1. -Monitor: signs, symptoms, disease progression, disease regression. -Evaluate: test results, medication effectiveness, response to treatment. Hypophosphataemia 12/16/2020 12/17/2020 Last Assessment & Plan: Assessment: Hypophosphatemia PLAN: -Sodium phosphate 30 mmol IV x 1. -Monitor: signs, symptoms, disease progression, disease regression. -Evaluate: test results, medication effectiveness, response to treatment. 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 coli) 021 12/17/2020 Last Assessment & Plan: Assessment: 12/17 patient is tachycardic, hypotensive, lactate elevated, given some pressors and fluid by Amet, Blood culture pending. 12/16 UA and Ucx grow GNB. Started on zosyn. PLAN: - Zosyn - Follow up culture - Keep Map >65, pressors as needed, currently on Levo Hemodynamic instability 12/17/2020 02/28/20 Last Assessment & Plan: Assessment: Likely urosepsis, on levo gtt PLAN: Keep Map >65, pressors as needed, currently on Levo Sepsis due to Gram-negative organism with septic shock 12/17/2020 12/22/2020 Last Assessment & Plan: Assessment: - Proteus identified in blood and urine, bourgeois-sensitive - Showed great improvement over the last 2 days - Now off pressors and extubated. PLAN: - Amikacin re-dosed 12/19. Continue zosyn - CT chest/abdomen/pelvis to assess for potential additional sources of infection was unremarkable. - Follow up C/S - Stress dose steroids Acute postoperative respiratory insufficiency 12/22/2020 Last Assessment & Plan: Assessment: - PTX on 12/18 CXR, s/p 14Fr pigtail. This has been repositioned as needed. - Currently extubated with adequate O2 saturations on room air PLAN: - Monitor respiratory status. - Will assess tpday for Pigtail removal BRITTANY (acute kidney injury) 12/17/20202020 Last Assessment & Plan: Assessment: - Resolving, likely prerenal versus less likely ATN given speed of improvement - Solute clearance appropriate - UOP good volume - New almanza inserted 12/17 PLAN: - Continue resuscitation - Trend CMP Delirium 12/16/2020 12/22/2020 Last Assessment & Plan: Delirium likely 2/2 infection. Geriatrics has been following PLAN: -- continue oxycodone 2.5-5mg every 4 hours as needed for pain (NGT) -- limit narcotic -- treat active infection/supportive care Hypomagnesemia 12/16/2020 12/17/2020 Last Assessment & Plan: Assessment: Hypomagnesemia PLAN: -Magnesium sulfate 2 gm IV x 1. -Monitor: signs, symptoms, disease progression, disease regression. -Evaluate: test results, medication effectiveness, response to treatment. Hypophosphataemia 12/16/2020 12/17/2020 Last Assessment & Plan: Assessment: Hypophosphatemia PLAN: -Sodium phosphate 30 mmol IV x 1. -Monitor: signs, symptoms, disease progression, disease regression. -Evaluate: test results, medication effectiveness, response to treatment. 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 coli) 021 12/17/2020 Last Assessment & Plan: Assessment: 12/17 patient is tachycardic, hypotensive, lactate elevated, given some pressors and fluid by Amet, Blood culture pending. 12/16 UA and Ucx grow GNB. Started on zosyn. PLAN: - Zosyn - Follow up culture - Keep Map >65, pressors as needed, currently on Levo Hemodynamic instability 12/17/2020 02/28/20 Last Assessment & Plan: Assessment: Likely urosepsis, on levo gtt PLAN: Keep Map >65, pressors as needed, currently on Levo Sepsis due to Gram-negative organism with septic shock 12/17/2020 12/22/2020 Last Assessment & Plan: Assessment: - Proteus identified in blood and urine, bourgeois-sensitive - Showed great improvement over the last 2 days - Now off pressors and extubated. PLAN: - Amikacin re-dosed 12/19. Continue zosyn - CT chest/abdomen/pelvis to assess for potential additional sources of infection was unremarkable. - Follow up C/S - Stress dose steroids Acute postoperative respiratory insufficiency 12/22/2020 Last Assessment & Plan: Assessment: - PTX on 12/18 CXR, s/p 14Fr pigtail. This has been repositioned as needed. - Currently extubated with adequate O2 saturations on room air PLAN: - Monitor respiratory status. - Will assess tpday for Pigtail removal BRITTANY (acute kidney injury) 12/17/20202020 Last Assessment & Plan: Assessment: - Resolving, likely prerenal versus less likely ATN given speed of improvement - Solute clearance appropriate - UOP good volume - New almanza inserted 12/17 PLAN: - Continue resuscitation - Trend CMP Delirium 12/16/2020 12/22/2020 Last Assessment & Plan: Delirium likely 2/2 infection. Geriatrics has been following PLAN: -- continue oxycodone 2.5-5mg every 4 hours as needed for pain (NGT) -- limit narcotic -- treat active infection/supportive care Hypomagnesemia 12/16/2020 12/17/2020 Last Assessment & Plan: Assessment: Hypomagnesemia PLAN: -Magnesium sulfate 2 gm IV x 1. -Monitor: signs, symptoms, disease progression, disease regression. -Evaluate: test results, medication effectiveness, response to treatment. Hypophosphataemia 12/16/2020 12/17/2020 Last Assessment & Plan: Assessment: Hypophosphatemia PLAN: -Sodium phosphate 30 mmol IV x 1. -Monitor: signs, symptoms, disease progression, disease regression. -Evaluate: test results, medication effectiveness, response to treatment. 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 coli) 021 12/17/2020 Last Assessment & Plan: Assessment: 12/17 patient is tachycardic, hypotensive, lactate elevated, given some pressors and fluid by Amet, Blood culture pending. 12/16 UA and Ucx grow GNB. Started on zosyn. PLAN: - Zosyn - Follow up culture - Keep Map >65, pressors as needed, currently on Levo Hemodynamic instability 12/17/2020 02/28/20 Last Assessment & Plan: Assessment: Likely urosepsis, on levo gtt PLAN: Keep Map >65, pressors as needed, currently on Levo Sepsis due to Gram-negative organism with septic shock 12/17/2020 12/22/2020 Last Assessment & Plan: Assessment: - Proteus identified in blood and urine, bourgeois-sensitive - Showed great improvement over the last 2 days - Now off pressors and extubated. PLAN: - Amikacin re-dosed 12/19. Continue zosyn - CT chest/abdomen/pelvis to assess for potential additional sources of infection was unremarkable. - Follow up C/S - Stress dose steroids Acute postoperative respiratory insufficiency 12/22/2020 Last Assessment & Plan: Assessment: - PTX on 12/18 CXR, s/p 14Fr pigtail. This has been repositioned as needed. - Currently extubated with adequate O2 saturations on room air PLAN: - Monitor respiratory status. - Will assess tpday for Pigtail removal BRITTANY (acute kidney injury) 12/17/20202020 Last Assessment & Plan: Assessment: - Resolving, likely prerenal versus less likely ATN given speed of improvement - Solute clearance appropriate - UOP good volume - New almanza inserted 12/17 PLAN: - Continue resuscitation - Trend CMP Delirium 12/16/2020 12/22/2020 Last Assessment & Plan: Delirium likely 2/2 infection. Geriatrics has been following PLAN: -- continue oxycodone 2.5-5mg every 4 hours as needed for pain (NGT) -- limit narcotic -- treat active infection/supportive care Hypomagnesemia 12/16/2020 12/17/2020 Last Assessment & Plan: Assessment: Hypomagnesemia PLAN: -Magnesium sulfate 2 gm IV x 1. -Monitor: signs, symptoms, disease progression, disease regression. -Evaluate: test results, medication effectiveness, response to treatment. Hypophosphataemia 12/16/2020 12/17/2020 Last Assessment & Plan: Assessment: Hypophosphatemia PLAN: -Sodium phosphate 30 mmol IV x 1. -Monitor: signs, symptoms, disease progression, disease regression. -Evaluate: test results, medication effectiveness, response to treatment. 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 coli) 021 12/17/2020 Last Assessment & Plan: Assessment: 12/17 patient is tachycardic, hypotensive, lactate elevated, given some pressors and fluid by Amet, Blood culture pending. 12/16 UA and Ucx grow GNB. Started on zosyn. PLAN: - Zosyn - Follow up culture - Keep Map >65, pressors as needed, currently on Levo Hemodynamic instability 12/17/2020 02/28/20 Last Assessment & Plan: Assessment: Likely urosepsis, on levo gtt PLAN: Keep Map >65, pressors as needed, currently on Levo Sepsis due to Gram-negative organism with septic shock 12/17/2020 12/22/2020 Last Assessment & Plan: Assessment: - Proteus identified in blood and urine, bourgeois-sensitive - Showed great improvement over the last 2 days - Now off pressors and extubated. PLAN: - Amikacin re-dosed 12/19. Continue zosyn - CT chest/abdomen/pelvis to assess for potential additional sources of infection was unremarkable. - Follow up C/S - Stress dose steroids Acute postoperative respiratory insufficiency 12/22/2020 Last Assessment & Plan: Assessment: - PTX on 12/18 CXR, s/p 14Fr pigtail. This has been repositioned as needed. - Currently extubated with adequate O2 saturations on room air PLAN: - Monitor respiratory status. - Will assess tpday for Pigtail removal BRITTANY (acute kidney injury) 12/17/20202020 Last Assessment & Plan: Assessment: - Resolving, likely prerenal versus less likely ATN given speed of improvement - Solute clearance appropriate - UOP good volume - New almanza inserted 12/17 PLAN: - Continue resuscitation - Trend CMP Delirium 12/16/2020 12/22/2020 Last Assessment & Plan: Delirium likely 2/2 infection. Geriatrics has been following PLAN: -- continue oxycodone 2.5-5mg every 4 hours as needed for pain (NGT) -- limit narcotic -- treat active infection/supportive care Hypomagnesemia 12/16/2020 12/17/2020 Last Assessment & Plan: Assessment: Hypomagnesemia PLAN: -Magnesium sulfate 2 gm IV x 1. -Monitor: signs, symptoms, disease progression, disease regression. -Evaluate: test results, medication effectiveness, response to treatment. Hypophosphataemia 12/16/2020 12/17/2020 Last Assessment & Plan: Assessment: Hypophosphatemia PLAN: -Sodium phosphate 30 mmol IV x 1. -Monitor: signs, symptoms, disease progression, disease regression. -Evaluate: test results, medication effectiveness, response to treatment. 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 coli) 021 12/17/2020 Last Assessment & Plan: Assessment: 12/17 patient is tachycardic, hypotensive, lactate elevated, given some pressors and fluid by Amet, Blood culture pending. 12/16 UA and Ucx grow GNB. Started on zosyn. PLAN: - Zosyn - Follow up culture - Keep Map >65, pressors as needed, currently on Levo Hemodynamic instability 12/17/2020 02/28/20 Last Assessment & Plan: Assessment: Likely urosepsis, on levo gtt PLAN: Keep Map >65, pressors as needed, currently on Levo Sepsis due to Gram-negative organism with septic shock 12/17/2020 12/22/2020 Last Assessment & Plan: Assessment: - Proteus identified in blood and urine, bourgeois-sensitive - Showed great improvement over the last 2 days - Now off pressors and extubated. PLAN: - Amikacin re-dosed 12/19. Continue zosyn - CT chest/abdomen/pelvis to assess for potential additional sources of infection was unremarkable. - Follow up C/S - Stress dose steroids Acute postoperative respiratory insufficiency 12/22/2020 Last Assessment & Plan: Assessment: - PTX on 12/18 CXR, s/p 14Fr pigtail. This has been repositioned as needed. - Currently extubated with adequate O2 saturations on room air PLAN: - Monitor respiratory status. - Will assess tpday for Pigtail removal BRITTANY (acute kidney injury) 12/17/20202020 Last Assessment & Plan: Assessment: - Resolving, likely prerenal versus less likely ATN given speed of improvement - Solute clearance appropriate - UOP good volume - New almanza inserted 12/17 PLAN: - Continue resuscitation - Trend CMP Delirium 12/16/2020 12/22/2020 Last Assessment & Plan: Delirium likely 2/2 infection. Geriatrics has been following PLAN: -- continue oxycodone 2.5-5mg every 4 hours as needed for pain (NGT) -- limit narcotic -- treat active infection/supportive care Hypomagnesemia 12/16/2020 12/17/2020 Last Assessment & Plan: Assessment: Hypomagnesemia PLAN: -Magnesium sulfate 2 gm IV x 1. -Monitor: signs, symptoms, disease progression, disease regression. -Evaluate: test results, medication effectiveness, response to treatment. Hypophosphataemia 12/16/2020 12/17/2020 Last Assessment & Plan: Assessment: Hypophosphatemia PLAN: -Sodium phosphate 30 mmol IV x 1. -Monitor: signs, symptoms, disease progression, disease regression. -Evaluate: test results, medication effectiveness, response to treatment. 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 coli) 021 12/17/2020 Last Assessment & Plan: Assessment: 12/17 patient is tachycardic, hypotensive, lactate elevated, given some pressors and fluid by Amet, Blood culture pending. 12/16 UA and Ucx grow GNB. Started on zosyn. PLAN: - Zosyn - Follow up culture - Keep Map >65, pressors as needed, currently on Levo Hemodynamic instability 12/17/2020 02/28/20 Last Assessment & Plan: Assessment: Likely urosepsis, on levo gtt PLAN: Keep Map >65, pressors as needed, currently on Levo Sepsis due to Gram-negative organism with septic shock 12/17/2020 12/22/2020 Last Assessment & Plan: Assessment: - Proteus identified in blood and urine, bourgeois-sensitive - Showed great improvement over the last 2 days - Now off pressors and extubated. PLAN: - Amikacin re-dosed 12/19. Continue zosyn - CT chest/abdomen/pelvis to assess for potential additional sources of infection was unremarkable. - Follow up C/S - Stress dose steroids Acute postoperative respiratory insufficiency 12/22/2020 Last Assessment & Plan: Assessment: - PTX on 12/18 CXR, s/p 14Fr pigtail. This has been repositioned as needed. - Currently extubated with adequate O2 saturations on room air PLAN: - Monitor respiratory status. - Will assess tpday for Pigtail removal BRITTANY (acute kidney injury) 12/17/20202020 Last Assessment & Plan: Assessment: - Resolving, likely prerenal versus less likely ATN given speed of improvement - Solute clearance appropriate - UOP good volume - New almanza inserted 12/17 PLAN: - Continue resuscitation - Trend CMP Delirium 12/16/2020 12/22/2020 Last Assessment & Plan: Delirium likely 2/2 infection. Geriatrics has been following PLAN: -- continue oxycodone 2.5-5mg every 4 hours as needed for pain (NGT) -- limit narcotic -- treat active infection/supportive care Hypomagnesemia 12/16/2020 12/17/2020 Last Assessment & Plan: Assessment: Hypomagnesemia PLAN: -Magnesium sulfate 2 gm IV x 1. -Monitor: signs, symptoms, disease progression, disease regression. -Evaluate: test results, medication effectiveness, response to treatment. Hypophosphataemia 12/16/2020 12/17/2020 Last Assessment & Plan: Assessment: Hypophosphatemia PLAN: -Sodium phosphate 30 mmol IV x 1. -Monitor: signs, symptoms, disease progression, disease regression. -Evaluate: test results, medication effectiveness, response to treatment. 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 coli) 021 12/17/2020 Last Assessment & Plan: Assessment: 12/17 patient is tachycardic, hypotensive, lactate elevated, given some pressors and fluid by Amet, Blood culture pending. 12/16 UA and Ucx grow GNB. Started on zosyn. PLAN: - Zosyn - Follow up culture - Keep Map >65, pressors as needed, currently on Levo Hemodynamic instability 12/17/2020 02/28/20 21 Last Assessment & Plan: Assessment: Likely urosepsis, on levo gtt PLAN: Keep Map >65, pressors as needed, currently on Levo Sepsis due to Gram-negative organism with septic shock 12/17/2020 12/22/2020 Last Assessment & Plan: Assessment: - Proteus identified in blood and urine, bourgeois-sensitive - Showed great improvement over the last 2 days - Now off pressors and extubated. PLAN: - Amikacin re-dosed 12/19. Continue zosyn - CT chest/abdomen/pelvis to assess for potential additional sources of infection was unremarkable. - Follow up C/S - Stress dose steroids Acute postoperative respiratory insufficiency 12/22/2020 Last Assessment & Plan: Assessment: - PTX on 12/18 CXR, s/p 14Fr pigtail. This has been repositioned as needed. - Currently extubated with adequate O2 saturations on room air PLAN: - Monitor respiratory status. - Will assess tpday for Pigtail removal BRITTANY (acute kidney injury) 12/17/20202020 Last Assessment & Plan: Assessment: - Resolving, likely prerenal versus less likely ATN given speed of improvement - Solute clearance appropriate - UOP good volume - New almanza inserted 12/17 PLAN: - Continue resuscitation - Trend CMP Delirium 12/16/2020 12/22/2020 Last Assessment & Plan: Delirium likely 2/2 infection. Geriatrics has been following PLAN: -- continue oxycodone 2.5-5mg every 4 hours as needed for pain (NGT) -- limit narcotic -- treat active infection/supportive care Hypomagnesemia 12/16/2020 12/17/2020 Last Assessment & Plan: Assessment: Hypomagnesemia PLAN: -Magnesium sulfate 2 gm IV x 1. -Monitor: signs, symptoms, disease progression, disease regression. -Evaluate: test results, medication effectiveness, response to treatment. Hypophosphataemia 12/16/2020 12/17/2020 Last Assessment & Plan: Assessment: Hypophosphatemia PLAN: -Sodium phosphate 30 mmol IV x 1. -Monitor: signs, symptoms, disease progression, disease regression. -Evaluate: test results, medication effectiveness, response to treatment. 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 coli) 021 12/17/2020 Last Assessment & Plan: Assessment: 12/17 patient is tachycardic, hypotensive, lactate elevated, given some pressors and fluid by Amet, Blood culture pending. 12/16 UA and Ucx grow GNB. Started on zosyn. PLAN: - Zosyn - Follow up culture - Keep Map >65, pressors as needed, currently on Levo Hemodynamic instability 12/17/2020 02/28/20 21 Last Assessment & Plan: Assessment: Likely urosepsis, on levo gtt PLAN: Keep Map >65, pressors as needed, currently on Levo Sepsis due to Gram-negative organism with septic shock 12/17/2020 12/22/2020 Last Assessment & Plan: Assessment: - Proteus identified in blood and urine, bourgeois-sensitive - Showed great improvement over the last 2 days - Now off pressors and extubated. PLAN: - Amikacin re-dosed 12/19. Continue zosyn - CT chest/abdomen/pelvis to assess for potential additional sources of infection was unremarkable. - Follow up C/S - Stress dose steroids Acute postoperative respiratory insufficiency 12/22/2020 Last Assessment & Plan: Assessment: - PTX on 12/18 CXR, s/p 14Fr pigtail. This has been repositioned as needed. - Currently extubated with adequate O2 saturations on room air PLAN: - Monitor respiratory status. - Will assess tpday for Pigtail removal BRITTANY (acute kidney injury) 12/17/20202020 Last Assessment & Plan: Assessment: - Resolving, likely prerenal versus less likely ATN given speed of improvement - Solute clearance appropriate - UOP good volume - New almanza inserted 12/17 PLAN: - Continue resuscitation - Trend CMP Delirium 12/16/2020 12/22/2020 Last Assessment & Plan: Delirium likely 2/2 infection. Geriatrics has been following PLAN: -- continue oxycodone 2.5-5mg every 4 hours as needed for pain (NGT) -- limit narcotic -- treat active infection/supportive care Hypomagnesemia 12/16/2020 12/17/2020 Last Assessment & Plan: Assessment: Hypomagnesemia PLAN: -Magnesium sulfate 2 gm IV x 1. -Monitor: signs, symptoms, disease progression, disease regression. -Evaluate: test results, medication effectiveness, response to treatment. Hypophosphataemia 12/16/2020 12/17/2020 Last Assessment & Plan: Assessment: Hypophosphatemia PLAN: -Sodium phosphate 30 mmol IV x 1. -Monitor: signs, symptoms, disease progression, disease regression. -Evaluate: test results, medication effectiveness, response to treatment. 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 coli) 021 12/17/2020 Last Assessment & Plan: Assessment: 12/17 patient is tachycardic, hypotensive, lactate elevated, given some pressors and fluid by Amet, Blood culture pending. 12/16 UA and Ucx grow GNB. Started on zosyn. PLAN: - Zosyn - Follow up culture - Keep Map >65, pressors as needed, currently on Levo Hemodynamic instability 12/17/2020 02/28/20 21 Last Assessment & Plan: Assessment: Likely urosepsis, on levo gtt PLAN: Keep Map >65, pressors as needed, currently on Levo Sepsis due to Gram-negative organism with septic shock 12/17/2020 12/22/2020 Last Assessment & Plan: Assessment: - Proteus identified in blood and urine, bourgeois-sensitive - Showed great improvement over the last 2 days - Now off pressors and extubated. PLAN: - Amikacin re-dosed 12/19. Continue zosyn - CT chest/abdomen/pelvis to assess for potential additional sources of infection was unremarkable. - Follow up C/S - Stress dose steroids Acute postoperative respiratory insufficiency 12/22/2020 Last Assessment & Plan: Assessment: - PTX on 12/18 CXR, s/p 14Fr pigtail. This has been repositioned as needed. - Currently extubated with adequate O2 saturations on room air PLAN: - Monitor respiratory status. - Will assess tpday for Pigtail removal BRITTANY (acute kidney injury) 12/17/20202020 Last Assessment & Plan: Assessment: - Resolving, likely prerenal versus less likely ATN given speed of improvement - Solute clearance appropriate - UOP good volume - New almanza inserted 12/17 PLAN: - Continue resuscitation - Trend CMP Delirium 12/16/2020 12/22/2020 Last Assessment & Plan: Delirium likely 2/2 infection. Geriatrics has been following PLAN: -- continue oxycodone 2.5-5mg every 4 hours as needed for pain (NGT) -- limit narcotic -- treat active infection/supportive care Hypomagnesemia 12/16/2020 12/17/2020 Last Assessment & Plan: Assessment: Hypomagnesemia PLAN: -Magnesium sulfate 2 gm IV x 1. -Monitor: signs, symptoms, disease progression, disease regression. -Evaluate: test results, medication effectiveness, response to treatment. Hypophosphataemia 12/16/2020 12/17/2020 Last Assessment & Plan: Assessment: Hypophosphatemia PLAN: -Sodium phosphate 30 mmol IV x 1. -Monitor: signs, symptoms, disease progression, disease regression. -Evaluate: test results, medication effectiveness, response to treatment. 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 coli) 12/17/2020 12/17/2020 Last Assessment & Plan: Assessment: 12/17 patient is tachycardic, hypotensive, lactate elevated, given some pressors and fluid by Amet, Blood culture pending. 12/16 UA and Ucx grow GNB. Started on zosyn. PLAN: - Zosyn - Follow up culture - Keep Map >65, pressors as needed, currently on Levo Hemodynamic instability 12/17/202012/2020 Last Assessment & Plan: Assessment: Likely urosepsis, on levo gtt PLAN: Keep Map >65, pressors as needed, currently on Levo Sepsis due to Gram-negative organism with septic shock 12/17/2020 12/22/2020 Last Assessment & Plan: Assessment: - Proteus identified in blood and urine, bourgeois-sensitive - Showed great improvement over the last 2 days - Now off pressors and extubated. PLAN: - Amikacin re-dosed 12/19. Continue zosyn - CT chest/abdomen/pelvis to assess for potential additional sources of infection was unremarkable. - Follow up C/S - Stress dose steroids Acute postoperative respiratory insufficiency 12/18/19 21 12/22/2020 Last Assessment & Plan: Assessment: - PTX on 12/18 CXR, s/p 14Fr pigtail. This has been repositioned as needed. - Currently extubated with adequate O2 saturations on room air PLAN: - Monitor respiratory status. - Will assess tpday for Pigtail removal BRITTANY (acute kidney injury) 12/17/2020 Last Assessment & Plan: Assessment: - Resolving, likely prerenal versus less likely ATN given speed of improvement - Solute clearance appropriate - UOP good volume - New almanza inserted 12/17 PLAN: - Continue resuscitation - Trend CMP Delirium 12/16/2020 12/22/2020 Last Assessment & Plan: Delirium likely 2/2 infection. Geriatrics has been following PLAN: -- continue oxycodone 2.5-5mg every 4 hours as needed for pain (NGT) -- limit narcotic -- treat active infection/supportive care Hypomagnesemia 12/16/2020 12/17/2020 Last Assessment & Plan: Assessment: Hypomagnesemia PLAN: -Magnesium sulfate 2 gm IV x 1. -Monitor: signs, symptoms, disease progression, disease regression. -Evaluate: test results, medication effectiveness, response to treatment. Hypophosphataemia 12/16/2020 12/17/2020 Last Assessment & Plan: Assessment: Hypophosphatemia PLAN: -Sodium phosphate 30 mmol IV x 1. -Monitor: signs, symptoms, disease progression, disease regression. -Evaluate: test results, medication effectiveness, response to treatment. 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 coli) 12/17/2020 12/17/2020 Last Assessment & Plan: Assessment: 12/17 patient is tachycardic, hypotensive, lactate elevated, given some pressors and fluid by Amet, Blood culture pending. 12/16 UA and Ucx grow GNB. Started on zosyn. PLAN: - Zosyn - Follow up culture - Keep Map >65, pressors as needed, currently on Levo Hemodynamic instability 12/17/202012/2020 Last Assessment & Plan: Assessment: Likely urosepsis, on levo gtt PLAN: Keep Map >65, pressors as needed, currently on Levo Sepsis due to Gram-negative organism with septic shock 12/17/2020 12/22/2020 Last Assessment & Plan: Assessment: - Proteus identified in blood and urine, bourgeois-sensitive - Showed great improvement over the last 2 days - Now off pressors and extubated. PLAN: - Amikacin re-dosed 12/19. Continue zosyn - CT chest/abdomen/pelvis to assess for potential additional sources of infection was unremarkable. - Follow up C/S - Stress dose steroids Acute postoperative respiratory insufficiency 03/12/22/2020 Last Assessment & Plan: Assessment: - PTX on 12/18 CXR, s/p 14Fr pigtail. This has been repositioned as needed. - Currently extubated with adequate O2 saturations on room air PLAN: - Monitor respiratory status. - Will assess tpday for Pigtail removal BRITTANY (acute kidney injury) 12/17/2020 Last Assessment & Plan: Assessment: - Resolving, likely prerenal versus less likely ATN given speed of improvement - Solute clearance appropriate - UOP good volume - New almanza inserted 12/17 PLAN: - Continue resuscitation - Trend CMP Delirium 12/16/2020 12/22/2020 Last Assessment & Plan: Delirium likely 2/2 infection. Geriatrics has been following PLAN: -- continue oxycodone 2.5-5mg every 4 hours as needed for pain (NGT) -- limit narcotic -- treat active infection/supportive care Hypomagnesemia 12/16/2020 12/17/2020 Last Assessment & Plan: Assessment: Hypomagnesemia PLAN: -Magnesium sulfate 2 gm IV x 1. -Monitor: signs, symptoms, disease progression, disease regression. -Evaluate: test results, medication effectiveness, response to treatment. Hypophosphataemia 12/16/2020 12/17/2020 Last Assessment & Plan: Assessment: Hypophosphatemia PLAN: -Sodium phosphate 30 mmol IV x 1. -Monitor: signs, symptoms, disease progression, disease regression. -Evaluate: test results, medication effectiveness, response to treatment. 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 coli) 12/17/2020 12/17/2020 Last Assessment & Plan: Assessment: 12/17 patient is tachycardic, hypotensive, lactate elevated, given some pressors and fluid by Amet, Blood culture pending. 12/16 UA and Ucx grow GNB. Started on zosyn. PLAN: - Zosyn - Follow up culture - Keep Map >65, pressors as needed, currently on Levo Hemodynamic instability 12/17/202012/2020 Last Assessment & Plan: Assessment: Likely urosepsis, on levo gtt PLAN: Keep Map >65, pressors as needed, currently on Levo Sepsis due to Gram-negative organism with septic shock 12/17/2020 12/22/2020 Last Assessment & Plan: Assessment: - Proteus identified in blood and urine, bourgeois-sensitive - Showed great improvement over the last 2 days - Now off pressors and extubated. PLAN: - Amikacin re-dosed 12/19. Continue zosyn - CT chest/abdomen/pelvis to assess for potential additional sources of infection was unremarkable. - Follow up C/S - Stress dose steroids Acute postoperative respiratory insufficiency 12/18/1912/22/2020 Last Assessment & Plan: Assessment: - PTX on 12/18 CXR, s/p 14Fr pigtail. This has been repositioned as needed. - Currently extubated with adequate O2 saturations on room air PLAN: - Monitor respiratory status. - Will assess tpday for Pigtail removal BRITTANY (acute kidney injury) 12/17/2020 Last Assessment & Plan: Assessment: - Resolving, likely prerenal versus less likely ATN given speed of improvement - Solute clearance appropriate - UOP good volume - New almanza inserted 12/17 PLAN: - Continue resuscitation - Trend CMP Delirium 12/16/2020 12/22/2020 Last Assessment & Plan: Delirium likely 2/2 infection. Geriatrics has been following PLAN: -- continue oxycodone 2.5-5mg every 4 hours as needed for pain (NGT) -- limit narcotic -- treat active infection/supportive care Hypomagnesemia 12/16/2020 12/17/2020 Last Assessment & Plan: Assessment: Hypomagnesemia PLAN: -Magnesium sulfate 2 gm IV x 1. -Monitor: signs, symptoms, disease progression, disease regression. -Evaluate: test results, medication effectiveness, response to treatment. Hypophosphataemia 12/16/2020 12/17/2020 Last Assessment & Plan: Assessment: Hypophosphatemia PLAN: -Sodium phosphate 30 mmol IV x 1. -Monitor: signs, symptoms, disease progression, disease regression. -Evaluate: test results, medication effectiveness, response to treatment. 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 coli) 12/17/2020 12/17/2020 Last Assessment & Plan: Assessment: 12/17 patient is tachycardic, hypotensive, lactate elevated, given some pressors and fluid by Amet, Blood culture pending. 12/16 UA and Ucx grow GNB. Started on zosyn. PLAN: - Zosyn - Follow up culture - Keep Map >65, pressors as needed, currently on Levo Hemodynamic instability 12/17/202012/2020 Last Assessment & Plan: Assessment: Likely urosepsis, on levo gtt PLAN: Keep Map >65, pressors as needed, currently on Levo Sepsis due to Gram-negative organism with septic shock 12/17/2020 12/22/2020 Last Assessment & Plan: Assessment: - Proteus identified in blood and urine, bourgeois-sensitive - Showed great improvement over the last 2 days - Now off pressors and extubated. PLAN: - Amikacin re-dosed 12/19. Continue zosyn - CT chest/abdomen/pelvis to assess for potential additional sources of infection was unremarkable. - Follow up C/S - Stress dose steroids Acute postoperative respiratory insufficiency 12/18/1912/22/2020 Last Assessment & Plan: Assessment: - PTX on 12/18 CXR, s/p 14Fr pigtail. This has been repositioned as needed. - Currently extubated with adequate O2 saturations on room air PLAN: - Monitor respiratory status. - Will assess tpday for Pigtail removal BRITTANY (acute kidney injury) 12/17/2020 Last Assessment & Plan: Assessment: - Resolving, likely prerenal versus less likely ATN given speed of improvement - Solute clearance appropriate - UOP good volume - New almanza inserted 12/17 PLAN: - Continue resuscitation - Trend CMP Delirium 12/16/2020 12/22/2020 Last Assessment & Plan: Delirium likely 2/2 infection. Geriatrics has been following PLAN: -- continue oxycodone 2.5-5mg every 4 hours as needed for pain (NGT) -- limit narcotic -- treat active infection/supportive care Hypomagnesemia 12/16/2020 12/17/2020 Last Assessment & Plan: Assessment: Hypomagnesemia PLAN: -Magnesium sulfate 2 gm IV x 1. -Monitor: signs, symptoms, disease progression, disease regression. -Evaluate: test results, medication effectiveness, response to treatment. Hypophosphataemia 12/16/2020 12/17/2020 Last Assessment & Plan: Assessment: Hypophosphatemia PLAN: -Sodium phosphate 30 mmol IV x 1. -Monitor: signs, symptoms, disease progression, disease regression. -Evaluate: test results, medication effectiveness, response to treatment. 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 coli) 12/17/2020 12/17/2020 Last Assessment & Plan: Assessment: 12/17 patient is tachycardic, hypotensive, lactate elevated, given some pressors and fluid by Amet, Blood culture pending. 12/16 UA and Ucx grow GNB. Started on zosyn. PLAN: - Zosyn - Follow up culture - Keep Map >65, pressors as needed, currently on Levo Hemodynamic instability 12/17/202012/2020 Last Assessment & Plan: Assessment: Likely urosepsis, on levo gtt PLAN: Keep Map >65, pressors as needed, currently on Levo Sepsis due to Gram-negative organism with septic shock 12/17/2020 12/22/2020 Last Assessment & Plan: Assessment: - Proteus identified in blood and urine, bourgeois-sensitive - Showed great improvement over the last 2 days - Now off pressors and extubated. PLAN: - Amikacin re-dosed 12/19. Continue zosyn - CT chest/abdomen/pelvis to assess for potential additional sources of infection was unremarkable. - Follow up C/S - Stress dose steroids Acute postoperative respiratory insufficiency 12/18/1912/22/2020 Last Assessment & Plan: Assessment: - PTX on 12/18 CXR, s/p 14Fr pigtail. This has been repositioned as needed. - Currently extubated with adequate O2 saturations on room air PLAN: - Monitor respiratory status. - Will assess tpday for Pigtail removal BRITTANY (acute kidney injury) 12/17/2020 Last Assessment & Plan: Assessment: - Resolving, likely prerenal versus less likely ATN given speed of improvement - Solute clearance appropriate - UOP good volume - New almanza inserted 12/17 PLAN: - Continue resuscitation - Trend CMP Delirium 12/16/2020 12/22/2020 Last Assessment & Plan: Delirium likely 2/2 infection. Geriatrics has been following PLAN: -- continue oxycodone 2.5-5mg every 4 hours as needed for pain (NGT) -- limit narcotic -- treat active infection/supportive care Hypomagnesemia 12/16/2020 12/17/2020 Last Assessment & Plan: Assessment: Hypomagnesemia PLAN: -Magnesium sulfate 2 gm IV x 1. -Monitor: signs, symptoms, disease progression, disease regression. -Evaluate: test results, medication effectiveness, response to treatment. Hypophosphataemia 12/16/2020 12/17/2020 Last Assessment & Plan: Assessment: Hypophosphatemia PLAN: -Sodium phosphate 30 mmol IV x 1. -Monitor: signs, symptoms, disease progression, disease regression. -Evaluate: test results, medication effectiveness, response to treatment. 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 coli) 12/17/2020 12/17/2020 Last Assessment & Plan: Assessment: 12/17 patient is tachycardic, hypotensive, lactate elevated, given some pressors and fluid by Amet, Blood culture pending. 12/16 UA and Ucx grow GNB. Started on zosyn. PLAN: - Zosyn - Follow up culture - Keep Map >65, pressors as needed, currently on Levo Hemodynamic instability 12/17/202012/2020 Last Assessment & Plan: Assessment: Likely urosepsis, on levo gtt PLAN: Keep Map >65, pressors as needed, currently on Levo Sepsis due to Gram-negative organism with septic shock 12/17/2020 12/22/2020 Last Assessment & Plan: Assessment: - Proteus identified in blood and urine, bourgeois-sensitive - Showed great improvement over the last 2 days - Now off pressors and extubated. PLAN: - Amikacin re-dosed 12/19. Continue zosyn - CT chest/abdomen/pelvis to assess for potential additional sources of infection was unremarkable. - Follow up C/S - Stress dose steroids Acute postoperative respiratory insufficiency 12/18/1912/22/2020 Last Assessment & Plan: Assessment: - PTX on 12/18 CXR, s/p 14Fr pigtail. This has been repositioned as needed. - Currently extubated with adequate O2 saturations on room air PLAN: - Monitor respiratory status. - Will assess tpday for Pigtail removal BRITTANY (acute kidney injury) 12/17/2020 Last Assessment & Plan: Assessment: - Resolving, likely prerenal versus less likely ATN given speed of improvement - Solute clearance appropriate - UOP good volume - New almanza inserted 12/17 PLAN: - Continue resuscitation - Trend CMP Delirium 12/16/2020 12/22/2020 Last Assessment & Plan: Delirium likely 2/2 infection. Geriatrics has been following PLAN: -- continue oxycodone 2.5-5mg every 4 hours as needed for pain (NGT) -- limit narcotic -- treat active infection/supportive care Hypomagnesemia 12/16/2020 12/17/2020 Last Assessment & Plan: Assessment: Hypomagnesemia PLAN: -Magnesium sulfate 2 gm IV x 1. -Monitor: signs, symptoms, disease progression, disease regression. -Evaluate: test results, medication effectiveness, response to treatment. Hypophosphataemia 12/16/2020 12/17/2020 Last Assessment & Plan: Assessment: Hypophosphatemia PLAN: -Sodium phosphate 30 mmol IV x 1. -Monitor: signs, symptoms, disease progression, disease regression. -Evaluate: test results, medication effectiveness, response to treatment. 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 coli) 12/17/2020 12/17/2020 Last Assessment & Plan: Assessment: 12/17 patient is tachycardic, hypotensive, lactate elevated, given some pressors and fluid by Amet, Blood culture pending. 12/16 UA and Ucx grow GNB. Started on zosyn. PLAN: - Zosyn - Follow up culture - Keep Map >65, pressors as needed, currently on Levo Hemodynamic instability 12/17/2020 06/0 12/2020 Last Assessment & Plan: Assessment: Likely urosepsis, on levo gtt PLAN: Keep Map >65, pressors as needed, currently on Levo Sepsis due to Gram-negative organism with septic shock 12/17/2020 12/22/2020 Last Assessment & Plan: Assessment: - Proteus identified in blood and urine, bourgeois-sensitive - Showed great improvement over the last 2 days - Now off pressors and extubated. PLAN: - Amikacin re-dosed 12/19. Continue zosyn - CT chest/abdomen/pelvis to assess for potential additional sources of infection was unremarkable. - Follow up C/S - Stress dose steroids Acute postoperative respiratory insufficiency 12/18/1912/22/2020 Last Assessment & Plan: Assessment: - PTX on 12/18 CXR, s/p 14Fr pigtail. This has been repositioned as needed. - Currently extubated with adequate O2 saturations on room air PLAN: - Monitor respiratory status. - Will assess tpday for Pigtail removal BRITTANY (acute kidney injury) 12/17/2020 Last Assessment & Plan: Assessment: - Resolving, likely prerenal versus less likely ATN given speed of improvement - Solute clearance appropriate - UOP good volume - New almanza inserted 12/17 PLAN: - Continue resuscitation - Trend CMP Delirium 12/16/2020 12/22/2020 Last Assessment & Plan: Delirium likely 2/2 infection. Geriatrics has been following PLAN: -- continue oxycodone 2.5-5mg every 4 hours as needed for pain (NGT) -- limit narcotic -- treat active infection/supportive care Hypomagnesemia 12/16/2020 12/17/2020 Last Assessment & Plan: Assessment: Hypomagnesemia PLAN: -Magnesium sulfate 2 gm IV x 1. -Monitor: signs, symptoms, disease progression, disease regression. -Evaluate: test results, medication effectiveness, response to treatment. Hypophosphataemia 12/16/2020 12/17/2020 Last Assessment & Plan: Assessment: Hypophosphatemia PLAN: -Sodium phosphate 30 mmol IV x 1. -Monitor: signs, symptoms, disease progression, disease regression. -Evaluate: test results, medication effectiveness, response to treatment. 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 coli) 12/17/2020 12/17/2020 Last Assessment & Plan: Assessment: 12/17 patient is tachycardic, hypotensive, lactate elevated, given some pressors and fluid by Amet, Blood culture pending. 12/16 UA and Ucx grow GNB. Started on zosyn. PLAN: - Zosyn - Follow up culture - Keep Map >65, pressors as needed, currently on Levo Hemodynamic instability 12/17/2020 06/0 12/2020 Last Assessment & Plan: Assessment: Likely urosepsis, on levo gtt PLAN: Keep Map >65, pressors as needed, currently on Levo Sepsis due to Gram-negative organism with septic shock 12/17/2020 12/22/2020 Last Assessment & Plan: Assessment: - Proteus identified in blood and urine, bourgeois-sensitive - Showed great improvement over the last 2 days - Now off pressors and extubated. PLAN: - Amikacin re-dosed 12/19. Continue zosyn - CT chest/abdomen/pelvis to assess for potential additional sources of infection was unremarkable. - Follow up C/S - Stress dose steroids Acute postoperative respiratory insufficiency 12/18/1912/22/2020 Last Assessment & Plan: Assessment: - PTX on 12/18 CXR, s/p 14Fr pigtail. This has been repositioned as needed. - Currently extubated with adequate O2 saturations on room air PLAN: - Monitor respiratory status. - Will assess tpday for Pigtail removal BRITTANY (acute kidney injury) 12/17/2020 Last Assessment & Plan: Assessment: - Resolving, likely prerenal versus less likely ATN given speed of improvement - Solute clearance appropriate - UOP good volume - New almanza inserted 12/17 PLAN: - Continue resuscitation - Trend CMP Delirium 12/16/2020 12/22/2020 Last Assessment & Plan: Delirium likely 2/2 infection. Geriatrics has been following PLAN: -- continue oxycodone 2.5-5mg every 4 hours as needed for pain (NGT) -- limit narcotic -- treat active infection/supportive care Hypomagnesemia 12/16/2020 12/17/2020 Last Assessment & Plan: Assessment: Hypomagnesemia PLAN: -Magnesium sulfate 2 gm IV x 1. -Monitor: signs, symptoms, disease progression, disease regression. -Evaluate: test results, medication effectiveness, response to treatment. Hypophosphataemia 12/16/2020 12/17/2020 Last Assessment & Plan: Assessment: Hypophosphatemia PLAN: -Sodium phosphate 30 mmol IV x 1. -Monitor: signs, symptoms, disease progression, disease regression. -Evaluate: test results, medication effectiveness, response to treatment. 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 coli) 12/17/2020 12/17/2020 Last Assessment & Plan: Assessment: 12/17 patient is tachycardic, hypotensive, lactate elevated, given some pressors and fluid by Amet, Blood culture pending. 12/16 UA and Ucx grow GNB. Started on zosyn. PLAN: - Zosyn - Follow up culture - Keep Map >65, pressors as needed, currently on Levo Hemodynamic instability 12/17/2020 06/0 12/2020 Last Assessment & Plan: Assessment: Likely urosepsis, on levo gtt PLAN: Keep Map >65, pressors as needed, currently on Levo Sepsis due to Gram-negative organism with septic shock 12/17/2020 12/22/2020 Last Assessment & Plan: Assessment: - Proteus identified in blood and urine, bourgeois-sensitive - Showed great improvement over the last 2 days - Now off pressors and extubated. PLAN: - Amikacin re-dosed 12/19. Continue zosyn - CT chest/abdomen/pelvis to assess for potential additional sources of infection was unremarkable. - Follow up C/S - Stress dose steroids Acute postoperative respiratory insufficiency 12/18/1912/22/2020 Last Assessment & Plan: Assessment: - PTX on 12/18 CXR, s/p 14Fr pigtail. This has been repositioned as needed. - Currently extubated with adequate O2 saturations on room air PLAN: - Monitor respiratory status. - Will assess tpday for Pigtail removal BRITTANY (acute kidney injury) 12/17/2020 Last Assessment & Plan: Assessment: - Resolving, likely prerenal versus less likely ATN given speed of improvement - Solute clearance appropriate - UOP good volume - New almanza inserted 12/17 PLAN: - Continue resuscitation - Trend CMP Delirium 12/16/2020 12/22/2020 Last Assessment & Plan: Delirium likely 2/2 infection. Geriatrics has been following PLAN: -- continue oxycodone 2.5-5mg every 4 hours as needed for pain (NGT) -- limit narcotic -- treat active infection/supportive care Hypomagnesemia 12/16/2020 12/17/2020 Last Assessment & Plan: Assessment: Hypomagnesemia PLAN: -Magnesium sulfate 2 gm IV x 1. -Monitor: signs, symptoms, disease progression, disease regression. -Evaluate: test results, medication effectiveness, response to treatment. Hypophosphataemia 12/16/2020 12/17/2020 Last Assessment & Plan: Assessment: Hypophosphatemia PLAN: -Sodium phosphate 30 mmol IV x 1. -Monitor: signs, symptoms, disease progression, disease regression. -Evaluate: test results, medication effectiveness, response to treatment. 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 coli) 12/17/2020 12/17/2020 Last Assessment & Plan: Assessment: 12/17 patient is tachycardic, hypotensive, lactate elevated, given some pressors and fluid by Amet, Blood culture pending. 12/16 UA and Ucx grow GNB. Started on zosyn. PLAN: - Zosyn - Follow up culture - Keep Map >65, pressors as needed, currently on Levo Hemodynamic instability 12/17/2020 06/0 12/2020 Last Assessment & Plan: Assessment: Likely urosepsis, on levo gtt PLAN: Keep Map >65, pressors as needed, currently on Levo Sepsis due to Gram-negative organism with septic shock 12/17/2020 12/22/2020 Last Assessment & Plan: Assessment: - Proteus identified in blood and urine, bourgeois-sensitive - Showed great improvement over the last 2 days - Now off pressors and extubated. PLAN: - Amikacin re-dosed 12/19. Continue zosyn - CT chest/abdomen/pelvis to assess for potential additional sources of infection was unremarkable. - Follow up C/S - Stress dose steroids Acute postoperative respiratory insufficiency 12/18/1912/22/2020 Last Assessment & Plan: Assessment: - PTX on 12/18 CXR, s/p 14Fr pigtail. This has been repositioned as needed. - Currently extubated with adequate O2 saturations on room air PLAN: - Monitor respiratory status. - Will assess tpday for Pigtail removal BRITTANY (acute kidney injury) 12/17/2020 Last Assessment & Plan: Assessment: - Resolving, likely prerenal versus less likely ATN given speed of improvement - Solute clearance appropriate - UOP good volume - New almanza inserted 12/17 PLAN: - Continue resuscitation - Trend CMP Delirium 12/16/2020 12/22/2020 Last Assessment & Plan: Delirium likely 2/2 infection. Geriatrics has been following PLAN: -- continue oxycodone 2.5-5mg every 4 hours as needed for pain (NGT) -- limit narcotic -- treat active infection/supportive care Hypomagnesemia 12/16/2020 12/17/2020 Last Assessment & Plan: Assessment: Hypomagnesemia PLAN: -Magnesium sulfate 2 gm IV x 1. -Monitor: signs, symptoms, disease progression, disease regression. -Evaluate: test results, medication effectiveness, response to treatment. Hypophosphataemia 12/16/2020 12/17/2020 Last Assessment & Plan: Assessment: Hypophosphatemia PLAN: -Sodium phosphate 30 mmol IV x 1. -Monitor: signs, symptoms, disease progression, disease regression. -Evaluate: test results, medication effectiveness, response to treatment. 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 coli) 12/17/2020 12/17/2020 Last Assessment & Plan: Assessment: 12/17 patient is tachycardic, hypotensive, lactate elevated, given some pressors and fluid by Amet, Blood culture pending. 12/16 UA and Ucx grow GNB. Started on zosyn. PLAN: - Zosyn - Follow up culture - Keep Map >65, pressors as needed, currently on Levo Hemodynamic instability 12/17/2020 06/12/2020 Last Assessment & Plan: Assessment: Likely urosepsis, on levo gtt PLAN: Keep Map >65, pressors as needed, currently on Levo Sepsis due to Gram-negative organism with septic shock 12/17/2020 12/22/2020 Last Assessment & Plan: Assessment: - Proteus identified in blood and urine, bourgeois-sensitive - Showed great improvement over the last 2 days - Now off pressors and extubated. PLAN: - Amikacin re-dosed 12/19. Continue zosyn - CT chest/abdomen/pelvis to assess for potential additional sources of infection was unremarkable. - Follow up C/S - Stress dose steroids Acute postoperative respiratory insufficiency 12/18/1912/22/2020 Last Assessment & Plan: Assessment: - PTX on 12/18 CXR, s/p 14Fr pigtail. This has been repositioned as needed. - Currently extubated with adequate O2 saturations on room air PLAN: - Monitor respiratory status. - Will assess tpday for Pigtail removal BRITTANY (acute kidney injury) 12/17/2020 Last Assessment & Plan: Assessment: - Resolving, likely prerenal versus less likely ATN given speed of improvement - Solute clearance appropriate - UOP good volume - New almanza inserted 12/17 PLAN: - Continue resuscitation - Trend CMP Delirium 12/16/2020 12/22/2020 Last Assessment & Plan: Delirium likely 2/2 infection. Geriatrics has been following PLAN: -- continue oxycodone 2.5-5mg every 4 hours as needed for pain (NGT) -- limit narcotic -- treat active infection/supportive care Hypomagnesemia 12/16/2020 12/17/2020 Last Assessment & Plan: Assessment: Hypomagnesemia PLAN: -Magnesium sulfate 2 gm IV x 1. -Monitor: signs, symptoms, disease progression, disease regression. -Evaluate: test results, medication effectiveness, response to treatment. Hypophosphataemia 12/16/2020 12/17/2020 Last Assessment & Plan: Assessment: Hypophosphatemia PLAN: -Sodium phosphate 30 mmol IV x 1. -Monitor: signs, symptoms, disease progression, disease regression. -Evaluate: test results, medication effectiveness, response to treatment. 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 coli) 12/17/2020 12/17/2020 Last Assessment & Plan: Assessment: 12/17 patient is tachycardic, hypotensive, lactate elevated, given some pressors and fluid by Amet, Blood culture pending. 12/16 UA and Ucx grow GNB. Started on zosyn. PLAN: - Zosyn - Follow up culture - Keep Map >65, pressors as needed, currently on Levo Hemodynamic instability 12/17/202012/2020 Last Assessment & Plan: Assessment: Likely urosepsis, on levo gtt PLAN: Keep Map >65, pressors as needed, currently on Levo Sepsis due to Gram-negative organism with septic shock 12/17/2020 12/22/2020 Last Assessment & Plan: Assessment: - Proteus identified in blood and urine, bourgeois-sensitive - Showed great improvement over the last 2 days - Now off pressors and extubated. PLAN: - Amikacin re-dosed 12/19. Continue zosyn - CT chest/abdomen/pelvis to assess for potential additional sources of infection was unremarkable. - Follow up C/S - Stress dose steroids Acute postoperative respiratory insufficiency 12/18/1912/22/2020 Last Assessment & Plan: Assessment: - PTX on 12/18 CXR, s/p 14Fr pigtail. This has been repositioned as needed. - Currently extubated with adequate O2 saturations on room air PLAN: - Monitor respiratory status. - Will assess tpday for Pigtail removal BRITTANY (acute kidney injury) 12/17/2020 Last Assessment & Plan: Assessment: - Resolving, likely prerenal versus less likely ATN given speed of improvement - Solute clearance appropriate - UOP good volume - New almanza inserted 12/17 PLAN: - Continue resuscitation - Trend CMP Delirium 12/16/2020 12/22/2020 Last Assessment & Plan: Delirium likely 2/2 infection. Geriatrics has been following PLAN: -- continue oxycodone 2.5-5mg every 4 hours as needed for pain (NGT) -- limit narcotic -- treat active infection/supportive care Hypomagnesemia 12/16/2020 12/17/2020 Last Assessment & Plan: Assessment: Hypomagnesemia PLAN: -Magnesium sulfate 2 gm IV x 1. -Monitor: signs, symptoms, disease progression, disease regression. -Evaluate: test results, medication effectiveness, response to treatment. Hypophosphataemia 12/16/2020 12/17/2020 Last Assessment & Plan: Assessment: Hypophosphatemia PLAN: -Sodium phosphate 30 mmol IV x 1. -Monitor: signs, symptoms, disease progression, disease regression. -Evaluate: test results, medication effectiveness, response to treatment. 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 coli) 12/17/2020 12/17/2020 Last Assessment & Plan: Assessment: 12/17 patient is tachycardic, hypotensive, lactate elevated, given some pressors and fluid by Amet, Blood culture pending. 12/16 UA and Ucx grow GNB. Started on zosyn. PLAN: - Zosyn - Follow up culture - Keep Map >65, pressors as needed, currently on Levo Hemodynamic instability 12/17/202012/2020 Last Assessment & Plan: Assessment: Likely urosepsis, on levo gtt PLAN: Keep Map >65, pressors as needed, currently on Levo Sepsis due to Gram-negative organism with septic shock 12/17/2020 12/22/2020 Last Assessment & Plan: Assessment: - Proteus identified in blood and urine, bourgeois-sensitive - Showed great improvement over the last 2 days - Now off pressors and extubated. PLAN: - Amikacin re-dosed 12/19. Continue zosyn - CT chest/abdomen/pelvis to assess for potential additional sources of infection was unremarkable. - Follow up C/S - Stress dose steroids Acute postoperative respiratory insufficiency 12/18/19 21 12/22/2020 Last Assessment & Plan: Assessment: - PTX on 12/18 CXR, s/p 14Fr pigtail. This has been repositioned as needed. - Currently extubated with adequate O2 saturations on room air PLAN: - Monitor respiratory status. - Will assess tpday for Pigtail removal BRITTANY (acute kidney injury) 12/17/2020 Last Assessment & Plan: Assessment: - Resolving, likely prerenal versus less likely ATN given speed of improvement - Solute clearance appropriate - UOP good volume - New almanza inserted 12/17 PLAN: - Continue resuscitation - Trend CMP Delirium 12/16/2020 12/22/2020 Last Assessment & Plan: Delirium likely 2/2 infection. Geriatrics has been following PLAN: -- continue oxycodone 2.5-5mg every 4 hours as needed for pain (NGT) -- limit narcotic -- treat active infection/supportive care Hypomagnesemia 12/16/2020 12/17/2020 Last Assessment & Plan: Assessment: Hypomagnesemia PLAN: -Magnesium sulfate 2 gm IV x 1. -Monitor: signs, symptoms, disease progression, disease regression. -Evaluate: test results, medication effectiveness, response to treatment. Hypophosphataemia 12/16/2020 12/17/2020 Last Assessment & Plan: Assessment: Hypophosphatemia PLAN: -Sodium phosphate 30 mmol IV x 1. -Monitor: signs, symptoms, disease progression, disease regression. -Evaluate: test results, medication effectiveness, response to treatment. 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 coli) 12/17/2020 12/17/2020 Last Assessment & Plan: Assessment: 12/17 patient is tachycardic, hypotensive, lactate elevated, given some pressors and fluid by Amet, Blood culture pending. 12/16 UA and Ucx grow GNB. Started on zosyn. PLAN: - Zosyn - Follow up culture - Keep Map >65, pressors as needed, currently on Levo Hemodynamic instability 12/17/202012/2020 Last Assessment & Plan: Assessment: Likely urosepsis, on levo gtt PLAN: Keep Map >65, pressors as needed, currently on Levo Sepsis due to Gram-negative organism with septic shock 12/17/2020 12/22/2020 Last Assessment & Plan: Assessment: - Proteus identified in blood and urine, bourgeois-sensitive - Showed great improvement over the last 2 days - Now off pressors and extubated. PLAN: - Amikacin re-dosed 12/19. Continue zosyn - CT chest/abdomen/pelvis to assess for potential additional sources of infection was unremarkable. - Follow up C/S - Stress dose steroids Acute postoperative respiratory insufficiency 12/18/19 21 12/22/2020 Last Assessment & Plan: Assessment: - PTX on 12/18 CXR, s/p 14Fr pigtail. This has been repositioned as needed. - Currently extubated with adequate O2 saturations on room air PLAN: - Monitor respiratory status. - Will assess tpday for Pigtail removal BRITTANY (acute kidney injury) 12/17/2020 Last Assessment & Plan: Assessment: - Resolving, likely prerenal versus less likely ATN given speed of improvement - Solute clearance appropriate - UOP good volume - New almanza inserted 12/17 PLAN: - Continue resuscitation - Trend CMP Delirium 12/16/2020 12/22/2020 Last Assessment & Plan: Delirium likely 2/2 infection. Geriatrics has been following PLAN: -- continue oxycodone 2.5-5mg every 4 hours as needed for pain (NGT) -- limit narcotic -- treat active infection/supportive care Hypomagnesemia 12/16/2020 12/17/2020 Last Assessment & Plan: Assessment: Hypomagnesemia PLAN: -Magnesium sulfate 2 gm IV x 1. -Monitor: signs, symptoms, disease progression, disease regression. -Evaluate: test results, medication effectiveness, response to treatment. Hypophosphataemia 12/16/2020 12/17/2020 Last Assessment & Plan: Assessment: Hypophosphatemia PLAN: -Sodium phosphate 30 mmol IV x 1. -Monitor: signs, symptoms, disease progression, disease regression. -Evaluate: test results, medication effectiveness, response to treatment. 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 Requested Prescriptions Signed Prescriptions Disp Refills hydroCHLOROthiazide (HYDRODIURIL, ESIDRIX) 12.5 mg tablet 30 tablet 1 Sig: Take 1 tablet by mouth once daily. Authorizing Provider: FRANCISCO BAHENA MD * Telephone Encounter - Paulette Summers Ma - 08/23/2022 4:40 PM EST Last office visit: 05/21/22 F/u scheduled: 10/04/22 Paulette Summers Ma documented [facility] Miscellaneous Notes* Telephone Encounter - Yolette Daley - 08/20/2022 3:13 PM EST Spoke to patients and informed her to not plan on a procedure at this time for Tuesday, 08/[address] Wilde. I told her that we will reach out to her with the procedure date once Dr. Wilde advises and to call us if the patient has any issues before that. documented in this [facility]Ch[facility] Miscellaneous Notes* Telephone Encounter - Yolette Daley - 08/20/2022 12:11 PM EST Patient's called inquiring about a procedure to be scheduled for Tuesday, 08/[address] Wilde.Informed her that I will follow up with her once I have been able to consult with Dr. Wilde. documented in this encounterCh[facility]11[facility] History of Present illness Narrative* Yolanda Victoria APRN.[employer] - 08/18/2022 1:31 PM EST Javier Bond is a 81 year old male who presents today for a follow up for Patient presents with: Established Patient UTI CHIEF COMPLAINT & HISTORY OF PRESENT ILLNESS CC: ER follow up 81 year old male with GERD, ED, BPH, nephrolithiasis, recurrent UTI's seen by numerous urology providers presents today for current UTI. Reports that his UTI's began in 2020 after a spinal fusion. 2 days he reports uncontrollable shaking, seen in the [facility], ct completed which a non obstructing left kidney stone, completed for flank pain. +chills, no fever Denies dysuria, gross hematuria, no change in urinary stream. Currently taking liquid nitrofurantoin twice daily Previous UTI was on 07/16/2022 treated with bactrim Current uti preventative measures include lemonade, 16 ounces per day PVR 48 cc s/p left cervical exploration, EGD on 07/29/[address] Wilde at [facility] cystoscopy in 2020 showed severe trabeculations with diverticula 01/08/2022 CT abd/pelvis IMPRESSION: 1. No evidence of a bowel obstruction 2. Dilatation of the common bile duct and intrahepatic bile ducts, possibly due to prior cholecystectomy. Correlation with liver function tests is recommended. 3. Again noted are nonobstructing left renal calculi 02/02/2021 Cystourethroscopy with bilateral ureteroscopy and pyleoscopy, stone extraction with insertion of bilateral double J ureteral stent stent ([id number]) Cystogram VITALS: Height 180.3 cm (5' 11"), weight 73.5 kg (162 lb). ALLERGIES: Contrast Dye, Finacea [Azelaic Acid], Bactrim [Sulfamethoxazole- Trimethoprim], Bextra [Valdecoxib], Cardura [Doxazosin Mesylate], Ciprofloxacin, Cytotec [Misoprostol], Fosamax [AlendronateSodium], Gabapentin, Keflex [Cephalexin], Ketoconazole, Levofloxacin, Mobic [Meloxicam], Nitrofurantoin, Nsaids (Non-Steroidal Anti-Inflammatory Drug), Relafen [Nabumetone], and Terbinafine MEDICATIONS: Current Outpatient Medications Medication Sig Dispense Refill traZODone (DESYREL) 50 mg tablet Take 0.5 tablets by mouth daily at bedtime. triamcinolone acetonide (KENALOG) 0.1 % cream Apply to affected areas (rosacea) as directed by provider Docusate Sodium 250 mg capsule Take 250 mg by mouth twice daily. atorvastatin (LIPITOR) 10 mg tablet Take 1 tablet by mouth daily at bedtime. For cholesterol. [address] (PROTONIX) 40 mg tablet Take 40 mg by mouth once daily. hydroCHLOROthiazide (HYDRODIURIL, ESIDRIX) 12.5 mg tablet Take 1 tablet by mouth once daily. 30 tablet 2 furosemide (LASIX) 20 mg tablet Take 1 tablet by mouth once daily. 90 tablet 1 tamsulosin (FLOMAX) 0.4 mg Take 1 capsule by mouth once daily. 90 capsule 1 quinapril (ACCUPRIL) 5 mg tablet Take 1 tablet by mouth once daily. 90 tablet 1 doxycycline 20 mg tablet Take 20 mg by mouth twice daily. finasteride (PROSCAR) 5 mg tablet Take 1 tablet by mouth once daily. 90 tablet 3 multivit-min/iron/folic acid/K (ADULTS MULTIVITAMIN ORAL) Take 1 tablet by mouth once daily. MEDICAL SUPPLY [facility] for right lower extremity. 1 Device 1 acetaminophen (TYLENOL) 500 mg tablet Take 2 tablets by mouth every 8 hours as needed for Pain or Fever. aspirin 81 mg chewable tablet Take 1 tablet by mouth once daily. calcium carbonate 600 mg-cholecalciferol 400 units (CALCIUM 600 + D) 600 mg(1,500mg) -400 unit tab Take 1 tablet by mouth twice daily. metroNIDAZOLE 0.75 % cream Apply 1 application to affected area twice daily. Apply to areas of rosacea on the face lactobacillus combination no.8 (ADULT PROBIOTIC ORAL) Take 1 capsule by mouth once daily. (Patient not taking: Reported on 08/18/2022) melatonin 3 mg tablet Take 1 tablet by mouth daily at bedtime. (Patient not taking: Reported on 08/18/2022) Current Facility-Administered Medications Medication Dose Route Frequency Provider Last Rate Last Admin perflutren lipid microspheres 1.3 mL in NaCl (PF) 0.9% 10 mL injection (DEFINITY) INTRAVENOUS DIRECTED SANTOS Wilde MD sodium chloride 0.9 % (flush) 10 mL (BD POSIFLUSH) 10 mL INTRAVENOUS DIRECTED PRClair Wilde MD SOCIAL HISTORY: Social History Tobacco Use Smoking status: Former Types: Cigarettes Quit date: 06/24/1963 Years since quittin.1 Smokeless tobacco: Never Tobacco comments: quit in his s - smoked socially while in college Vaping Use Vaping Use: Never used Substance Use Topics Alcohol use: Yes Comment: 1-2 drinks in A MONTH Drug use: No PAST MEDICAL HISTORY: 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 Chronic constipation 12/03/2020 Compression fracture of third lumbar vertebra (HCC) 11/05/2019 Degenerative lumbar spinal stenosis 12/15/2020 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/28/2017 Elevated blood sugar 08/31/2021 Episodic cluster headache, not intractable 09/09/2015 Essential hypertension, benign Family history of malignant neoplasm of gastrointestinal tract GERD (gastroesophageal reflux disease) 03/25/2009 History of compression fracture of spine 11/05/2019 Hypercalciuria, idiopathic 02/11/2020 Hypertrophy of prostate without urinary obstruction and other lower urinary tract symptoms (LUTS) Ilioinguinal neuralgia of left side 09/27/2019 Internal hemorrhoids without mention of complication Lumbar degenerative disc disease 09/14/2012 Lumbar radiculopathy 07/03/2020 Medicare annual wellness visit, subsequent 09/10/2021 Medicare Part B: Not able to find Last done: 09/10/2021 Nephrolithiasis 07/04/2007 Osteoporosis 01/28/2020 Other specified anemias 03/16/2022 Acute blood loss 11/2020 (post surgery) Primary osteoarthritis of both first carpometacarpal joints 05/04/2018 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 09/09/2015 Rosacea 09/09/2015 S/P lumbar spinal fusion 12/15/2020 Sepsis due to Gram-negative organism with septic shock (HCC) 12/17/2020 Proteus mirabilis UTI Situational anxiety 06/27/2019 Situational depression 02/27/2021 Spondylosis of lumbar region without myelopathy or radiculopathy 03/10/2018 Thyroid nodule 12/03/[address] Zacarias PAST SURGICAL HISTORY: PAST SURGICAL HISTORY Procedure Laterality Date ARTHRP INTERPOS INTERCARPAL/METACARPAL JOINTS Left 05/24/2018 Left thumb CMC arthroplasty with LRTI and MCP pinning of left thumb COLONOSCOPY FLX DX W/COLLJ SPEC WHEN PFRMD 07/17/08, 2012 COLONOSCOPY FLX DX W/COLLJ SPEC WHEN PFRMD [facility]28[facility] 02/20/2021 stent removal EGD TRANSORAL BIOPSY SINGLE/MULTIPLE 12/26/2008 ESOPHAGOGASTRODUODENOSCOPY TRANSORAL DIAGNOSTIC 03/18/2020 EGD EXCISION OF CYST squamous cell on head LAP, REVISION DEMETRIO FUNDOPLASTY 03/11/2009 hiatal hernia LAPAROSCOPY SURG CHOLECYSTECTOMY 03/11/2009 LITHOTRIPSY XTRCORP SHOCK WAVE 1982,12/07/2006, 2011 NEPHROLITHOTOMY REMOVAL STAGE 1 Right 11/28/2006, 2011 (R) ureteroscopic OPEN REPAIR OF ROTATOR CUFF ACUTE Right 12/06/2002 OPEN REPAIR OF ROTATOR CUFF ACUTE Left 08/26/2004 PERIPHERAL NERVE BLOCK (MOD 59) Bilateral 11/01/2016, 03/28/2018 bilateral lumbar facet medial branch nerve block (l4-5, L5-S1) REMOVAL OF HEMORRHOID CLOT 06/2017 SPINAL FUSION,ANT,EA ADNL LEVEL 2001 TONSILLECTOMY HX Childhood XCAPSL CTRC RMVL INSJ IO LENS PROSTH W/O ECP Bilateral 08/25/2016 FAMILY HISTORY: FAMILY HISTORY Problem Relation Age of Onset Cancer Mother lung Cancer Father colon Cancer Brother lymphoma All histories reviewed on this date 08/18/2022: Yes REVIEW OF SYSTEMS: CONSTITUTIONAL: Patient reports no recent fever or weight loss CARDIOVASCULAR: Negative for chest pain. RESPIRATORY: Negative for cough, hemoptysis, wheezing, COPD, dyspnea or shortness of breath GI: No nausea, vomiting, or diarrhea MUSCULOSKELETAL: denies back pain or muscular weakness All other systems reviewed and are negative other than HPI. PHYSICAL EXAM: constitutional: appears healthy in no acute distress respiratory: normal respiratory motion gu: no bladder pain Neuro: use of Rolator RADIOLOGY REPORTS REVIEWED: Yes LAB RESULTS REVIEWED: Yes IMAGING STUDIES INDEPENDENTLY REVIEWED: Yes OLD RECORDS REVIEWED: Yes: Extensive: Yes ASSESSMENT/PLAN: ASSESSMENT/PLAN: 1. Recurrent UTI - ICD9: 599.0, ICD10: N39.0 (primary diagnosis) -PVR 48 cc -continue with nitrofurantoin as prescribed by the [facility] -start d mannose liquid if they are able to find online -consider hiprex when able to take solid pills - BLADDER SCAN 2. BPH with obstruction/lower urinary tract symptoms - ICD9: 600.01, 599.69, ICD10: N40.1, N13.8 -continue with flomax 0.4 mg po daily 3. Nephrolithiasis - ICD9: 592.0, ICD10: N20.0 -CT reviewed -2 non obstructing stones in left kidney -follow up with Dr. Thompson for removal since this may be source of his infections -stone prevention managed by Angela Patient to schedule follow up as planned . Yolanda Victoria APRN.RHODA documented [facility] Nurse Note* Etta Valenzuela LPN - 08/18/2022 1:22 PM EST Bladder scan obtained 48 ml of urine documented in this encounterChill[facility]11-22-2022 NoteHNO ID: [id number] Author: RT Gloria(Aris) Service: ? Author Type: Technologist Type: Progress Notes Filed: 08/17/2022 10:13 AM Note Text: Radiology Service Progress Note PATIENT NAME: Javier Bond DATE OF SERVICE: August 17, 2022 TIME: 10:11 AM PATIENT IDENTITY VERIFICATION COMPLETED USING TWO (2) IDENTIFIERS: Name and Date of confirmed by patient verbally and Name and Date of confirmed by identification band. FALL SCREENING: Has the patient had 2 falls in the last year or 1 fall with injury or currently using an Ambulatory Assistive Device (Walker, Cane, Wheelchair, Crutches, etc.)? Yes, Patient High Risk for Falls What interventions were put in place to prevent falls during this visit? Yellow "Falls Risk Wristband" Applied PATIENT GENDER DATA: Male PATIENT RELEVANT IMPLANT DATA REVIEWED: Not Applicable RADIOLOGY DEPARTMENT: General X-ray: Exam(s) Completed: GI/ Procedure(s): Esophogram with water soluable contrast/ omnipaque 300, 100 ml PERIPHERAL IV DATA: Not applicable SIGNED BY: RT Gloria(R) August 17, 2022 10:11 [facility]11-22-2022 History of Present illness Narrative* BALJIT Castro) - 08/17/2022 9:15 AM EST Radiology Service Progress Note PATIENT NAME: Javier Bond DATE OF SERVICE: August 17, 2022 TIME: 10:11 AM PATIENT IDENTITY VERIFICATION COMPLETED USING TWO (2) IDENTIFIERS: Name and Date of confirmedby patient verbally and Name and Date of confirmed by identification band. FALL SCREENING: Has the patient had 2 falls in the last year or 1 fall with injury or currently using an Ambulatory Assistive Device (Walker, Cane, Wheelchair, Crutches, etc.)? Yes, Patient High Riskfor Falls What interventions were put in place to prevent falls during this visit? Yellow "Falls Risk Wristband" Applied PATIENT GENDER DATA: Male PATIENT RELEVANT IMPLANT DATA REVIEWED: Not Applicable RADIOLOGY DEPARTMENT: General X-ray: Exam(s) Completed: GI/ Procedure(s): Esophogram with water soluable contrast/ omnipaque 300, 100 ml PERIPHERAL IV DATA: Not applicable SIGNED BY: RT Gloria(Aris) August 17, 2022 10:11 AM documented in this encounterCh[facility]11-14-2022 Miscellaneous Notes* Telephone Encounter - Patience Martin RN - 08/09/2022 12:29 PM EST Thoracic Post Hospital Discharge Follow Up Call: Today's Date: August 09, 2022 Patient Name: Javier Bond Procedure performed: cervical reexploration, esophageal diverticulectomy, and esophogeal myotomy Date performed:07/29/22 Discharge date:08/02/22 Discharged to: Home with Self Care Patient Reported Post-operative Assessment: identified patient with 2 identifiers, spoke with Javier Lungs: a lot of cough, denies wheezing, denies dyspnea, or A lot with swallowing sputum production yellow in color Heart: Denies chest pain and palpitations Abd: NO BM on a liquid diet, educated to use OTC stool softeners while on narcotics Diet: GI soft cream of wheat, milk shakes with protein powder Temperature: none Activity: Resume pre-hospital activity No lifting restrictions May use stairs with walker Pain: LOCATION: Throat PAIN SCALE: 3 on a scale of 0-10 Current Pain Medication: none now Incision Assessment: well approximated and no drainage Wound Care Instructions: Leave open to air Drain/Tubes: N/A Home Health Agency:none Supplies Needed:none Reviewed Reasons to Call: Temperature > 101.5 degrees Increased shortness of breath Incisions that are red, have bad smelling drainage, swollen, hot to touch, or feel more tender Heart rate greater than 120 or irregular rhythm Reviewed Reasons to Proceed to the Emergency Room if you have: Sudden, severe shortness of breath or chest pain Up coming appointments: Appointments for Next 60 Days Date Time Provider Location Dept Phone 08/27/2022 11:30 AM MIKAYLA CORTEZ [phone] 10/04/2022 3:20 PM FR[facility]IS[facility] BAHENA [facility] [phone] Post-op appointment was made at this time Patient instructed to call with any questions or concerns. Patient verbalized understanding of instructions. documented in this encounterCh[facility]11-10-2022 Miscellaneous Notes* Telephone Encounter - Patience Martin RN - 08/05/2022 9:49 AM EST Left message for patient to return call for post op discharge update. Patience Martin RN August 05, 2022 9:52 AM documented in this encounterCh[facility]11-09-2022 History of Present illness Narrative* Dorothystephanie Stuart, [facility] - 08/04/2022 7:35 AM EST TRANSITION CARE MANAGEMENT (TCM) PHARMACY CONTACT Provider Action/FYI: TCM Medication Reconciliation completed for patient. See medication list table below for details. No further action required at this time Initial contact with patient post discharge, spoke to spouse, Peter,. Patient identified by name and . Summary: -Pt discharged from [facility] on 08/02/22. -Follow up appointment on to be scheduled. -Medication review done: Full medication review completed -Admitted for diverticulum Patient was contacted by telephone, identified for pharmacist care from discharge call list, and gave consent to manage medications related to transitional care management pursuant to the consult agreement with the [facility]. Patient Concerns: Spoke with patient's spouse, Peter, who is active in pt's medical care. Medication reconciliation completed - no medication questions or concerns identified at this time. History of Present Illness: The following content has been copied and pasted from patient's discharge summary. If discharge summary unavailable, After Visit Summary or last pertinent inpatient notes are copied and pasted. Hospital Course: * How was the Reason for Hospitalization Addressed: Javier Bond is a very pleasant 81-year old gentleman who has been diagnosed with a Zenker's diverticulum. The patient complains of regurgitation, constantly having to ' clear his throat ' and dysphagia. The patient also has a hiatal hernia. The patient had an upper GI/esophagram at an outside institution and is thought to have a small Zenker's Diverticulum. After completing standard preoperative testing, the pt underwent Left cervical exploration, mobilization of the cervical esophagus, and EGD on 07/29/22. No diverticulum was able to be identified. The superior and inferior borders of the dissection plane were marked with clips. The incision was closed. Pt was subsequently transferred to the PACU and then to the regular nursing floor for routine post operative care. Esophagram was performed the following day and showed the location of the zenker'sdiverticulum to be superior to the dissection plane. The decision was then made to reexplore the neck. The patient was brought back to the operting room on 07/31 and underwent cervical reexploration, esophageal diverticulectomy, and esophogeal myotomy. The patient has had an uncomplicated surgical course. A clear liquid diet was started on POD1 of the second operation. An esophagram was performed on POD2 (Tuesday) and no leak or diverticulum was identified. At the time of discharge, pain was well controlled on an oral pain regimen. The patient wasbreathing comfortably on room air and ambulating independently. He was tolerating a regular diet without nausea. Pt was voiding and had return of normal bowel function. The patient was educated on post operative activity restrictions, dietary guidelines, and pain management. He was discharged home on post operative day 2 in good condition and will follow up with the thoracic surgery clinic in four weeks." Medication Reconciliation: Legend: Stopped, New, Changed, Added to list Medication List Medication Directions Comments Action/Plan acetaminophen (TYLENOL) 500 mg tablet Take 2 tablets by mouth every 8 hours as needed for Pain or Fever. aspirin 81 mg chewable tablet Take 1 tablet by mouth once daily. atorvastatin (LIPITOR) 10 mg tablet Take 1 tablet by mouth daily at bedtime. For cholesterol. calcium carbonate 600 mg-cholecalciferol 400 units (CALCIUM 600 + D) 600 mg(1,500mg) -400 unit tab Take 1 tablet by mouth twice daily. Docusate Sodium 250 mg capsule Take 250 mg by mouth twice daily. doxycycline 20 mg tablet Take 20 mg by mouth twice daily. finasteride (PROSCAR) 5 mg tablet Take 1 tablet by mouth once daily. furosemide (LASIX) 20 mg tablet Take 1 tablet by mouth once daily. hydroCHLOROthiazide (HYDRODIURIL, ESIDRIX) 12.5 mg tablet Take 1 tablet by mouth once daily. lactobacillus combination no.8 (ADULT PROBIOTIC ORAL) Take 1 capsule by mouth once daily. melatonin 3 mg tablet Take 1 tablet by mouth daily at bedtime. metroNIDAZOLE 0.75 % cream Apply 1 application to affected area twice daily. Apply to areas of rosacea on the face multivit-min/iron/folic acid/K (ADULTS MULTIVITAMIN ORAL) Take 1 tablet by mouth once daily. oxyCODONE (ROXICODONE) 5 mg/5 mL oral solution Take 5 mL by mouth every 6 hours as needed for up to7 days. Taking as prescribed without any issues New medication counseling provided pantoprazole DR (PROTONIX) 40 mg tablet Take 40 mg by mouth once daily. quinapril (ACCUPRIL) 5 mg tablet Take 1 tablet by mouth once daily. Discontinued: 08/02/2022 1:34 PM Pt aware tamsulosin (FLOMAX) 0.4 mg Take 1 capsule by mouth once daily. traZODone (DESYREL) 50 mg tablet Take 0.5 tablets by mouth daily at bedtime. triamcinolone acetonide (KENALOG) 0.1 % cream Apply to affected areas (rosacea) as directed by provider Preferred pharmacy: [facility] [address] [place] [address] Estimated Creatinine Clearance: 63.8 mL/min (based on SCr of 1 mg/dL). Estimated Glomerular Filtration Rate (mL/min/1.73m ) Date Value 07/29/2022 77 eGFR- (no units) Date Value 09/04/2021 >60 ALLERGIES Allergen Reactions Contrast Dye Hives Finacea [Azelaic Ac* Rash Bactrim [Sulfametho* Unknown Bextra [Valdecoxib] Unknown Cardura [Doxazosin * Unknown Ciprofloxacin Unknown Cytotec [Misoprosto* Unknown Fosamax [Alendronat* Vomiting heartburn, vomiting Gabapentin Mental Status Change Keflex [Cephalexin] Rash Ketoconazole Unknown Levofloxacin Other: See Comments Pseudomonas Mobic [Meloxicam] Unknown Nitrofurantoin Other: See Comments Per , "he didn't feel well" - unsure of reaction Nsaids (Non-Steroid* Unknown GI UPSET Relafen [Nabumetone] Unknown Terbinafine GI Upset PAST MEDICAL HISTORY Diagnosis Date Benign intracranial hypertension 11/30/2002 Bilateral carotid artery stenosis 12/03/2020 US 08/2020: Rt 20-40%, Lt 0-20% 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 Chronic constipation 12/03/2020 Compression fracture of third lumbar vertebra (HCC) 11/05/2019 Degenerative lumbar spinal stenosis 12/15/2020 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/28/2017 Elevated blood sugar 08/31/2021 Episodic cluster headache, not intractable 09/09/2015 Essential hypertension, benign Family history of malignant neoplasm of gastrointestinal tract GERD (gastroesophageal reflux disease) 03/25/2009 History of compression fracture of spine 11/05/2019 Hypercalciuria, idiopathic 02/11/2020 Hypertrophy of prostate without urinary obstruction and other lower urinary tract symptoms (LUTS) Ilioinguinal neuralgia of left side 09/27/2019 Internal hemorrhoids without mention of complication Lumbar degenerative disc disease 09/14/2012 Lumbar radiculopathy 07/03/2020 Medicare annual wellness visit, subsequent 09/10/2021 Medicare Part B: Not able to find Last done: 09/10/2021 Nephrolithiasis 07/04/2007 Osteoporosis 01/28/2020 Other specified anemias 03/16/2022 Acute blood loss 11/2020 (post surgery) Primary osteoarthritis of both first carpometacarpal joints 05/04/2018 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 09/09/2015 Rosacea 09/09/2015 S/P lumbar spinal fusion 12/15/2020 Sepsis due to Gram-negative organism with septic shock (HCC) 12/17/2020 Proteus mirabilis UTI Situational anxiety 06/27/2019 Situational depression 02/27/2021 Spondylosis of lumbar region without myelopathy or radiculopathy 03/10/2018 Thyroid nodule 12/03/[address] Zacarias Social History Tobacco Use Smoking status: Former Types: Cigarettes Quit date: 06/24/1963 Years since quittin.1 Smokeless tobacco: Never Tobacco comments: quit in his 20's - smoked socially while in college Vaping Use Vaping Use: Never used Substance Use Topics Alcohol use: Yes Comment: 1-2 drinks in A MONTH Drug use: No Immunization History Administered Date(s) Administered COVID-19 booster vaccine, age 12+ yr, bivalent (PFIZER-BIONTECH) 06/29/2022 COVID-19 original vaccine, age 12+ yr, monovalent (PFIZER-BIONTECH - DUMONT TOP) 12/28/2021 COVID-19 original vaccine, age 12+ yr, monovalent (PFIZER-BIONTECH - PURPLE TOP) 11/15/2020 12/06/2020 06/19/2021 DT(PEDIATRIC) 07/01/1998 11/14/2007 Influenza Seasonal - High Dose - Age 65+ 06/27/2014 07/18/2017 07/07/2018 07/03/2019 Influenza Vaccine, Split-Non Spec 08/05/2005 08/01/2008 07/15/2009 07/02/2010 06/29/2011 Pneumococcal-13 Vac Conjugate 09/09/2015 Pneumovax 11/14/2007 Tdap (Age 7+) 03/13/2018 Zostavax 01/12/2011 Zoster Recombinant (Shingrix) 03/13/2018 05/22/2020 08/14/2020 influenza, high-dose, quadrivalent vaccine (FLUZONE HIGH DOSE QUADRIVALENT) 06/28/2020 08/01/2021 Additional follow up: Appointments for Next 60 Days Date Time Provider Location Dept Phone 08/27/2022 11:30 AM MIKAYLA CORTEZ [facility] [phone] Interventions Made: Patient education/Medication counseling Pharmacist Recommendations Made None Care Coordination: None at this time Time spent on patient: 30-45 minutes Dorothy Stuart RPh August 04, 2022 7:35 AM documented in this encounterCh[facility]2022 NoteHNO ID: [id number] Author: Zhane Jameson (Flux Tube Attendant) Service: Pharmacy Author Type: ? Type: Plan of Care Filed: 08/06/2022 10:20 AM Note Text: PHARMACY BEDSIDE DELIVERY SERVICE Patient Name: Javier Bond The marked outpatient medications were filled and picked up at outpatient pharmacy. Medication List START taking these medications oxyCODONE 5 mg/5 mL oral solutionX Commonly known as: ROXICODONE Take 5 mL by mouth every 6 hours as needed for up to 7 days. CONTINUE taking these medications acetaminophen 500 mg tablet Commonly known as: TYLENOL Take 2 tablets by mouth every 8 hours as needed for Pain or Fever. ADULT PROBIOTIC ORAL ADULTS MULTIVITAMIN ORAL aspirin 81 mg chewable tablet Take 1 tablet by mouth once daily. atorvastatin 10 mg tablet Commonly known as: LIPITOR Take 1 tablet by mouth daily at bedtime. For cholesterol. calcium carbonate 600 mg-cholecalciferol 400 units 600 mg-10 mcg (400 unit) Tab Commonly known as: Calcium 600 + D Take 1 tablet by mouth twice daily. Docusate Sodium 250 mg capsule doxycycline 20 mg tablet finasteride 5 mg tablet Commonly known as: PROSCAR Take 1 tablet by mouth once daily. furosemide 20 mg tablet Commonly known as: LASIX Take 1 tablet by mouth once daily. hydroCHLOROthiazide 12.5 mg tablet Commonly known as: HYDRODIURIL, ESIDRIX Take 1 tablet by mouth once daily. MEDICAL SUPPLY KAFO for right lower extremity. melatonin 3 mg tablet Take 1 tablet by mouth daily at bedtime. metroNIDAZOLE 0.75 % cream pantoprazole DR 40 mg tablet Commonly known as: PROTONIX quinapril 5 mg tablet Commonly known as: ACCUPRIL Take 1 tablet by mouth once daily. tamsulosin 0.4 mg Commonly known as: FLOMAX Take 1 capsule by mouth once daily. traZODone 50 mg tablet Commonly known as: DESYREL Take 0.5 tablets by mouth daily at bedtime. triamcinolone acetonide 0.1 % cream Commonly known as: KeNALog You might also be taking other medications not listed above. If you have questions about any of your other medications, talk to the person who prescribed them or your Primary Care Provider. STOP taking these medications sulfamethoxazole-trimethoprim 800-160 mg per tablet Commonly known as: BACTRIM DS Zhane Jameson (Flux Tube Attendant) PAGER: [phone] August 02 2022 10:19 [facility]2022 NoteHNO ID: [id number] Author: Mary Lundberg RPh Service: Pharmacy Author Type: Pharmacist Type: Plan of Care Filed: 08/02/2022 2:12 PM Note Text: DISCHARGE MEDICATION REVIEW BY PHARMACY Patient Name: Javier Bond Account #: Data Unavailable Admission Date: 07/29/2022 Date of Contact: August 02, 2022 Time of Contact: 2:07 PM Medication list was reviewed by a Pharmacist for drug interactions or drug related problems:Yes Below is a summary of pharmacist recommendations discussed with LIP: The following medications were discussed with LIP for further review: - Adjusted trazodone form daily to at bedtime to reflect STRANNER and inpatient dose - STRANNER meds hold during observation post procedure, okay to resume meds Mary Lundberg PharmD, [facility] Contact: 08/02/2022 2:08 PM Medication List START taking these medications oxyCODONE 5 mg/5 mL oral solution Commonly known as: ROXICODONE Take 5 mL by mouth every 6 hours as needed for up to 7 days. CONTINUE taking these medications acetaminophen 500 mg tablet Commonly known as: TYLENOL Take 2 tablets by mouth every 8 hours as needed for Pain or Fever. ADULT PROBIOTIC ORAL ADULTS MULTIVITAMIN ORAL aspirin 81 mg chewable tablet Take 1 tablet by mouth once daily. atorvastatin 10 mg tablet Commonly known as: LIPITOR Take 1 tablet by mouth daily at bedtime. For cholesterol. calcium carbonate 600 mg-cholecalciferol 400 units 600 mg-10 mcg (400 unit) Tab Commonly known as: Calcium 600 + D Take 1 tablet by mouth twice daily. Docusate Sodium 250 mg capsule doxycycline 20 mg tablet finasteride 5 mg tablet Commonly known as: PROSCAR Take 1 tablet by mouth once daily. furosemide 20 mg tablet Commonly known as: LASIX Take 1 tablet by mouth once daily. hydroCHLOROthiazide 12.5 mg tablet Commonly known as: HYDRODIURIL, ESIDRIX Take 1 tablet by mouth once daily. MEDICAL SUPPLY KA for right lower extremity. melatonin 3 mg tablet Take 1 tablet by mouth daily at bedtime. metroNIDAZOLE 0.75 % cream pantoprazole DR 40 mg tablet Commonly known as: PROTONIX quinapril 5 mg tablet Commonly known as: ACCUPRIL Take 1 tablet by mouth once daily. tamsulosin 0.4 mg Commonly known as: FLOMAX Take 1 capsule by mouth once daily. traZODone 50 mg tablet Commonly known as: DESYREL Take 0.5 tablets by mouth daily at bedtime. triamcinolone acetonide 0.1 % cream Commonly known as: KeNALog STOP taking these medications sulfamethoxazole-trimethoprim 800-160 mg per tablet Commonly known as: BACTRIM DS Where to Get Your Medications These medications were sent to [facility] [address] [place] [address] Hours: Tuesday-Tuesday: 7am-7pm, Sat: 9am-1pm oxyCODONE 5 mg/5 mL oral solution PTArDC PTArDM PTAnr Mwd/f Mwinst MrefpR KS PRa MfBD 0 0 0 0 1 0/[address] [place], [place] 5104111-07-2022 NoteHNO ID: [id number] Author: Eileen Franco RN Service: Nursing Author Type: Registered Nurse Type: Nursing Progress Note Filed: 08/02/2022 10:26 AM Note Text: 1020-Patient off the floor to radiology for esophogram.[employer] 08-01-2022 NoteHNO ID: [id number] Author: Petey Rosas PA-C Service: Cardiac Surgery Author Type: Physician Cutter Finisher Type: Progress Notes Filed: 08/01/2022 8:39 AM Note Text: [facility] POSTOP PROGRESS NOTE Day of Surgery:07/31/2022 S/P SURGERY: Rexploration of left cervical area with diverticulectomy (07/31) Left cervical exploration. Mobilization of the cervical esophagus. EGD INTERVAL EVENTS / PERTINENT ROS: POD#1 - AMANDA overnight. Patient + flauts, -BM. Awaiting liquid diet. Patient ambulating well. Talking without difficulty. Barium swallow to be performed tomorrow Rhythm: NSR Intake/Output Summary (Last 24 hours) at 08/01/2022 0836 Last data filed at 08/01/2022 0632 Gross per 24 hour Intake 1505 ml Output 400 ml Net 1105 ml TELE: most recent recordings reviewed PHYSICAL EXAM: Vital Signs:BP 143/64 Pulse 73 Temp 36.5 ?C (97.7 ?F) (Oral) Resp 16 Ht 180.3 cm (5' 11") Wt 77.7 kg (171 lb 6.4 oz) SpO2 99% BMI 23.91 kg/m? Constitutional: Well developed and Well nourished HEENT: PERRLA and EOM's intact Resp: Clear Cardiovascular: Regular rate AND rhythm GI: Soft and Non-tender Integumentary: Warm and No rash on chest, arms or legs Musculoskeletal: No deformities, No joint deformities, and No kyphoscoliosis Neurological/Psychiatric: Oriented to time, place AND person and No gross focal neurologic deficits Additional systems reviewed: No additional systems reviewed Drains: none Incisions: Yes HISTORY, ASSESSMENT AND PLAN: No problems updated. Javier Bond is a very pleasant 81-year old gentleman who has been diagnosed with a Zenker's diverticulum. The patient complains of regurgitation, constantly having to ' clear his throat ' and dysphagia. The patient also has a hiatal hernia. The patient had an upper GI/esophagram at an outside institution and is thought to have a small Zenker's Diverticulum. He ws referred to discuss diverticulectomy and esophagomyotomy. Patient underwent Left cervical exploration; Mobilization of the cervical esophagus; EGD by Dr. Wilde on 07/29/2022 without complication. Patient underwent rexploration of cervical esophagus on 07/[address] Wilde without complication. - Stable post op - Clear liquid today as tolerated - Barium swallow tomorrow - heparin for DVT prophylaxis - Oxycodone for pain control Discussed with Dr. Wilde DAILY STEP DOWN CHECKLIST FOR CATHETER RELATED INFECTION PREVENTION CVC, PICC, Mallika and/or Permacath present? No Does the patient have a urinary catheter beyond POD 2? No VTE Risk Assessment: High risk VTE Mechanical and/or Pharmacologic Prophylaxis: Subcutaneous Heparin Labs and medications reviewed in Epic SIGNATURE: Petey Rosas PA-C PATIENT NAME: Javier Bond DATE: August 01, 2022 TIME: 8:38 AM ETX#[id number] School For [id number] NoteHNO ID: [id number] Author: Nisa Joshi RN Service: Nursing Author Type: Registered Nurse Type: Progress Notes Filed: 07/31/2022 12:12 PM Note Text: 1211 Postop portable CXR [facility]11-05-2022 NoteHNO ID: [id number] Author: Smiley Garcia APRN.CABLE SWAGER Service: Anesthesiology Author Type: Nurse Powder And Primer Canning Leader Type: Anesthesia Procedure Notes Filed: 07/31/2022 9:43 AM Note Text: ANESTHESIOLOGY PROCEDURE NOTE Airway General Information Procedure Start Time/Medication Administration: 07/31/2022 9:03 AM Patient location during procedure: OR Patient identity confirmed: arm band, care care team coordinator scheduler and patient sedated or unresponsive Staffing Anesthesiologist: Shikha Coffman MD CABLE SWAGER: Smiley Garcia APRN.CABLE SWAGER Performed by: CABLE SWAGER Indications and Patient Condition Indications for airway management: anesthesia Preoxygenated: yes anesthesia circuit Patient position: sniffing Method: asleep Difficult Mask: No Final Airway Details Final airway type: endotracheal airway Final Endotracheal Airway: ETT Cuffed: yes Successful intubation technique: video laryngoscopy Devices used: Glidescope Endotracheal tube insertion site: oral Blade: Remedios Blade size: #4 ETT size (mm): 8.0 Measured from: lips Measurement (cm): 22 Placement verified by: chest auscultation and capnometry Cormack-Lehane Classification: grade I - full view of glottis Number of attempts at approach: 1 Airway not difficult Comments Neck maintained in neutral position comfortable per patient. SIGNATURE: Smiley Garcia APRN.CRNA PATIENT NAME: Javier Bond DATE: July 31, 2022 TIME: 9:42 AM CSN: [id number] NoteHNO ID: [id number] Author: Petey Rosas PA-C Service: Cardiac Surgery Author Type: Physician Cutter Finisher Type: Progress Notes Filed: 07/30/2022 11:59 AM Note Text: [facility] POST[facility] PROGRESS NOTE Day of Surgery:07/29/2022 S/P SURGERY: Left cervical exploration. Mobilization of the cervical esophagus. EGD INTERVAL EVENTS / PERTINENT ROS: POD#1 - AMANDA overnight. Patient + flauts, -BM. Awaiting liquid diet. Patient ambulating well. Talking without difficulty. at bedside. Discussed barium swallow and OR findings. Patient and agreeable to reoperation tomorrow AM Rhythm: NSR Intake/Output Summary (Last 24 hours) at 07/30/2022 1153 Last data filed at 07/30/2022 0938 Gross per 24 hour Intake 1320 ml Output 2500 ml Net -1180 ml TELE: most recent recordings reviewed PHYSICAL EXAM: Vital Signs:BP 130/62 Pulse 63 Temp 36.9 ?C (98.4 ?F) (Oral) Resp 16 Ht 180.3 cm (5' 11") Wt 77.7 kg (171 lb 6.4 oz) SpO2 100% BMI 23.91 kg/m? Constitutional: Well developed and Well nourished HEENT: PERRLA and EOM's intact Resp: Clear Cardiovascular: Regular rate AND rhythm GI: Soft and Non-tender Integumentary: Warm and No rash on chest, arms or legs Musculoskeletal: No deformities, No joint deformities, and No kyphoscoliosis Neurological/Psychiatric: Oriented to time, place AND person and No gross focal neurologic deficits Additional systems reviewed: No additional systems reviewed Drains: none Incisions: Yes HISTORY, ASSESSMENT AND PLAN: Problem Dysphagia Javier Bond is a very pleasant 81-year old gentleman who has been diagnosed with a Zenker's diverticulum. The patient complains of regurgitation, constantly having to ' clear his throat ' and dysphagia. The patient also has a hiatal hernia. The patient had an upper GI/esophagram at an outside institution and is thought to have a small Zenker's Diverticulum. He ws referred to discuss diverticulectomy and esophagomyotomy. Patient underwent Left cervical exploration; Mobilization of the cervical esophagus; EGD by Dr. Wilde on 07/29/2022 without complication. - Stable post op - Clear liquid for one week - Barium swallow this am completed - Reoperation tomorrow at 0900 with Andry for diverticulum - heparin for DVT prophylaxis - Flomax for urinary retention - Oxycodone for pain control Discussed with Dr. Wilde DAILY STEP DOWN CHECKLIST FOR CATHETER RELATED INFECTION PREVENTION CVC, PICC, Mallika and/or Permacath present? No Does the patient have a urinary catheter beyond POD 2? No VTE Risk Assessment: High risk VTE Mechanical and/or Pharmacologic Prophylaxis: Subcutaneous Heparin Labs and medications reviewed in [facility] SIGNATURE: Petey Rosas PA-C PATIENT NAME: Javier Bond DATE: July 30, 2022 TIME: 11:53 AM ETX#[id number] School For [id number] NoteHNO ID: [id number] Author: Bebe Anthony RPh Service: Pharmacy Author Type: Pharmacist Type: Plan of Care Filed: 07/30/2022 11:06 AM Note Text: PHARMACY MEDICATION REVIEW Patient Name: Javier Bond : 1940 The following medications were updated within the STRANNER medication list: Medications ADDED to STRANNER medication list Triamcinolone cream Medications CHANGED on STRANNER medication list Updated instructions for lactobacillus, metronidazole cream Added start/stop date for Bactrim DS - start 07/22, stop 07/30 Changed trazodone from once daily to once at bedtime Medications REMOVED from STRANNER medication list Duplicate docusate order Prednisone - patient reports course of therapy complete Additional comments: none Do you need refills for any of your medications? no Medications needing refills: n/a What prevents you from taking medications as prescribed? Cost: n/a Transportation: n/a Other: n/a Where would you like to get new medications at discharge? Bedside delivery: yes Other: n/a The below information represents the best possible medication history: Yes Medication history completed by: Pharmacist: Bebe Anthony [facility] Source of history: Surescripts, patient interview Medication nonadherence identified: No barriers noted Reconciliation completed: Yes All STRANNER medications addressed by LIP Medications intentionally held at admission: all STRANNER medications with the exception of acetaminophen are on hold (patient observation s/p procedure) Patient interested in Bedside Delivery Services or using OP Pharmacy at discharge? Yes. Discharge Pharmacy Updated Preferred outpatient pharmacy: [facility] Allergies: Contrast Dye Hives Finacea [Azelaic Ac* Rash Bactrim [Sulfametho* Unknown Bextra [Valdecoxib] Unknown Cardura [Doxazosin * Unknown Ciprofloxacin Unknown Cytotec [Misoprosto* Unknown Fosamax [Alendronat* Vomiting Comment:heartburn, vomiting Gabapentin Mental Status Change Keflex [Cephalexin] Rash Ketoconazole Unknown Levofloxacin Other: See Comments Comment:Pseudomonas Mobic [Meloxicam] Unknown Nitrofurantoin Other: See Comments Comment:Per , "he didn't feel well" - unsure of reaction Nsaids (Non-Steroid* Unknown Comment:GI UPSET Relafen [Nabumetone] Unknown Terbinafine GI Upset Prior to Admission Medications Prescriptions Last Dose Informant Patient Reported? Taking? Docusate Sodium 250 mg capsule Yes Yes Sig: Take 250 mg by mouth twice daily. MEDICAL SUPPLY No No Sig: KAFO for right lower extremity. acetaminophen (TYLENOL) 500 mg tablet No Yes Sig: Take 2 tablets by mouth every 8 hours as needed for Pain or Fever. aspirin 81 mg chewable tablet No Yes Sig: Take 1 tablet by mouth once daily. atorvastatin (LIPITOR) 10 mg tablet 07/28/2022 No Yes Sig: Take 1 tablet by mouth daily at bedtime. For cholesterol. calcium carbonate 600 mg-cholecalciferol 400 units (CALCIUM 600 + D) 600 mg(1,500mg) -400 unit tab No Yes Sig: Take 1 tablet by mouth twice daily. doxycycline 20 mg tablet 07/28/2022 Yes Yes Sig: Take 20 mg by mouth twice daily. finasteride (PROSCAR) 5 mg tablet 07/29/2022 No Yes Sig: Take 1 tablet by mouth once daily. furosemide (LASIX) 20 mg tablet No Yes Sig: Take 1 tablet by mouth once daily. hydroCHLOROthiazide (HYDRODIURIL, ESIDRIX) 12.5 mg tablet 07/28/2022 No Yes Sig: Take 1 tablet by mouth once daily. lactobacillus combination no.8 (ADULT PROBIOTIC ORAL) 07/28/2022 Spouse Yes Yes Sig: Take 1 capsule by mouth once daily. melatonin 3 mg tablet 07/28/2022 No Yes Sig: Take 1 tablet by mouth daily at bedtime. metroNIDAZOLE 0.75 % cream 07/28/2022 Patient Yes Yes Sig: Apply 1 application to affected area twice daily. Apply to areas of rosacea on the face multivit-min/iron/folic acid/K (ADULTS MULTIVITAMIN ORAL) Spouse Yes Yes Sig: Take 1 tablet by mouth once daily. pantoprazole DR (PROTONIX) 40 mg tablet 07/29/2022 Yes Yes Sig: Take 40 mg by mouth once daily. quinapril (ACCUPRIL) 5 mg tablet 07/28/2022 No Yes Sig: Take 1 tablet by mouth once daily. sulfamethoxazole-trimethoprim (BACTRIM DS) 800-160 mg per tablet 07/29/2022 No Yes Sig: Take 1 tablet by mouth twice daily. Patient taking differently: Take 1 tablet by mouth twice daily. Start 07/22, stop 07/30 tamsulosin (FLOMAX) 0.4 mg 07/28/2022 No Yes Sig: Take 1 capsule by mouth once daily. traZODone (DESYREL) 50 mg tablet 07/28/2022 No Yes Sig: Take 0.5 tablets by mouth once daily. Patient taking differently: Take 25 mg by mouth daily at bedtime. triamcinolone acetonide (KENALOG) 0.1 % cream Yes Yes Sig: Apply to affected areas (rosacea) as directed by provider Facility-Administered Medications Last Administration Doses Remaining perflutren lipid microspheres 1.3 mL in NaCl (PF) 0.9% 10 mL injection (DEFINITY) None recorded 1 sodium chloride 0.9 % (flush) 10 mL (BD POSIFLUSH) None recorded 1 S (more content not included)...[facility] [id number] NoteHNO ID: [id number] Author: MARIA DE JESUS Bauer Service: ? Author Type: Radioactivity Technician Type: Anesthesia Procedure Notes Filed: 07/29/2022 8:21 AM Note Text: ANESTHESIOLOGY PROCEDURE NOTE PIV General Information Procedure Start Time/Medication Administration: 07/29/2022 8:20 AM Patient Location: OR Staffing CAA: MARIA DE JESUS Bauer Student: PEE Saunders Performed by: LUIZ main Preparation Sterility Preparation: hand hygiene performed prior to procedure Site Prep: Betadine and chlorhexidine Procedure Details Indication: need for IV access Needle Size/Type: 18 gauge angiocath Orientation: Right Location: Wrist Imaging Guidance Used: No SIGNATURE: MARIA DE JESUS Bauer PATIENT NAME: Javier Bond DATE: July 29, 2022 TIME: 8:20 AM CSN: [id number] NoteHNO ID: [id number] Author: MARIA DE JESUS Bauer Service: ? Author Type: Radioactivity Technician Type: Anesthesia Procedure Notes Filed: 07/29/2022 8:21 AM Note Text: ANESTHESIOLOGY PROCEDURE NOTE Airway General Information Procedure Start Time/Medication Administration: 07/29/2022 7:59 AM Patient location during procedure: OR Staffing Anesthesiologist: Kingsley Champion MD CAA: MARIA DE JESUS Bauer Student: PEE Saunders Performed by: LUIZ main Indications and Patient Condition Indications for airway management: anesthesia Preoxygenated: yes anesthesia circuit Method: rapid sequence Cricoid Pressure: Yes Difficult mask ventilation: did not mask. Final Airway Details Final airway type: endotracheal airway Final Endotracheal Airway: ETT Cuffed: yes Successful intubation technique: video laryngoscopy Devices used: intubating stylet and Glidescope Endotracheal tube insertion site: oral Blade: Remedios Blade size: #4 ETT size (mm): 7.5 Measured from: lips Measurement (cm): 23 Placement verified by: capnometry Cormack-Lehane Classification: grade I - full view of glottis Number of attempts at approach: 1 Airway not difficult SIGNATURE: MARIA DE JESUS Bauer PATIENT NAME: Javier Bond DATE: July 29, 2022 TIME: 8:19 AM CSN: [id number] Miscellaneous Notes* Telephone Encounter - Laurel Aldridge LPN - 07/26/2022 10:51 AM EDT Called and spoke with patients . Per Brandi patient is okay to continue the bactrim. Laurel Aldridge LPN * Telephone Encounter - Laurel Aldridge LPN - 07/23/2022 2:54 PM EDT Patient's called and states since the patient saw us on 07/09/22 he had to have a heart cath and is currently on Bactrim for a UTI. She is wondering if the patient is okay to take the Bactrim the evening prior to the procedure. Laurel Aldridge LPN documented [facility]22 Miscellaneous Notes* Telephone Encounter - Patience Martin RN - 07/23/2022 12:50 PM EDT I spoke with Peter () and made her aware of last dose for Asprin on 07/25/22 prior to surgery with Dr. Wilde on 07/29/22. Note: This patient was intimally scheduled for surgery on 07/15/22 and had originally stopped Asprin on 07/11/22 Peter mentions he has been off since Asprin since due to added testing Cath on 07/16 and never restarted Asprin. Additionally the patient was started on Bactrim and asked if he is able to take day of surgery I gave PAT information to to have her contact them since there PAT appointment was completed prior to starting medication. documented in this encounterCh[facility]10-[facility]-2022 History of Present illness Narrative* Aris Baeza MD - 07/20/2022 2:03 PM EDT Javier is 18 months out from surgery. Overall he is happy with how he is doing. He denies leg pain. He does still have some back discomfort but this is tolerable. He still uses a walker for long distances. On clinical exam he stands in neutral coronal balance and slightly positive sagittal balance. X-rays today show that he is in slightly more positive balance. He is also noted a little bit of increased numbness in his left leg. This is in a stocking distribution. I will see him back in 6 months timefor clinical reassessment. Aris Baeza MD * Brayden Hancock MD - 07/20/2022 1:26 PM EDT SPINE SURGERY FOLLOW UP SERVICE DATE: 07/20/2022 SURGERY DATE: 12/12/21 Javier Bond is seen for f/u 1.5 years s/p L3-S1 posterior instrumented fusion. Overall he is very happy and reports near complete resolution of his symptoms. He does have occasional pain, but does not desire treatment for these minor aches. Patient Entered Questionnaires Spine Questions 08/12/2021 01/16/2022 07/13/2022 Pain Location: Lower back Lower back Lower back Pain Duration: 1 to 5 years 1 to 5 years 1 to 5 years Pain over last 6 months: Every day or nearly every day in the past 6 months Less than half the daysin the past 6 months Less than half the days in the past 6 months Symptoms from neck/cervical spine: Yes Yes No Employment Status: Retired Retired Retired Involved in law suit/legal claim: - No - Spine Red Flags 07/28/2020 Any type of cancer: No Unexplained fever: No Bowel or bladder disfunction: No Unintentional weight loss: No Neck Questionnaires 05/14/2021 08/12/2021 01/16/2022 Benzel Modified LISA Score Incomplete Incomplete 13 (A lower score indicates increased pain and issues.) Low Back Pain Questionnaires 07/09/2020 STarT Risk Score 5 (High risk for prolonged disability) STarT Distress Score 4 STarT Total Score 8 SANDEEP Score 53.33 (Severe disability) PROMIS Score Percentiles Physical Health 08/12/2021 01/16/2022 07/13/2022 Physical Function Percentile 7 4 8 Sleep Percentile 82 73 58 Fatigue Percentile 24* 62 24* Pain Interference Percentile 21* 24* 27* PROMIS SOCIAL ROLE SCORE 08/12/2021 01/16/2022 07/13/2022 Social Role Satisfaction Percentile 31 34 21* PROMIS Global Health Scale 12/31/2021 05/15/2022 07/03/2022 Physical Health Percentile 7 7 22* Mental Health Percentile 26* 26* 43 Percentiles provide an indication of how the patient's score ranks in relation to the general population. Higher percentile rankings indicate better function/quality of life. 50th percentile is the average of the general population and indicates half of respondents had a worse score. Depression Screening: PHQ-9 08/12/2021 01/16/2022 07/13/2022 Score 0 0 0 PHQ-9 Self-harm Question 08/12/2021 01/16/2022 07/13/2022 Thoughts that you would be better off , or of hurting yourself in some way 0 0 0 PHQ-9 Self-Harm (Item 9) response options: 0 Not at all 1 Several days 2 More than half the days 3 Nearly every day PHQ-9 Levels: 0-4 No to mild depression 5-9 Mild depression 10-14 Moderate depression 15-19 Moderately severe depression 20-27 Severe depression PHYSICAL EXAM: There were no vitals taken for this visit. GENERAL APPEARANCE: Well nourished, well developed, and no apparent distress. NEURO PSYCH: Patient oriented to person, place, and time. Mood pleasant. Benign affect. MUSCULOSKELETAL VISUAL INSPECTION CERVICAL: WNL THORACIC: WNL LUMBAR: WNL MOTOR: 5/5 in all muscle groups. SENSORY: Normal sensory exam GAIT: Antalgic. REFLEXES: +2 to bilateral U/L extremities. PROPRIOCEPTION: Normal. LONG TRACT SIGNS: No clonus. No Hoffmans. STRAIGHT LEG TEST: Ipsilateral: Negative. L'HERMITTES SIGN: Negative. SPURLING'S TEST: Negative. DATA REVIEW [facility] records independently reviewed XR with hardware in place. He has degenerative scoliosis above his construct ASSESSMENT/PLAN No diagnosis found. F/u 1 year with XR scoliosis at that time. SIGNATURE: Aris Baeza MD PATIENT NAME: Javier Bond DATE: July 20, 2022 TIME: 1:51 PM PAGER: documented in this encounterChillic[facility]10-25-2022 History of Present illness Narrative* Mila Fregoso RT(R) - 07/20/2022 12:30 PM EDT Radiology Service Progress Note PATIENT NAME: Javier Bond DATE OF SERVICE: July 20, 2022 TIME: 1:13 PM PATIENT IDENTITY VERIFICATION COMPLETED USING TWO (2) IDENTIFIERS: Name and Date of confirmedby patient verbally and Name and Date of confirmed by identification band. FALL SCREENING: Has the patient had 2 falls in the last year or 1 fall with injury or currently using an Ambulatory Assistive Device (Walker, Cane, Wheelchair, Crutches, etc.)? Yes, Patient High Riskfor Falls What interventions were put in place to prevent falls during this visit? Yellow "Falls Risk Wristband" Applied, Offered Assistance with Transfers/Clothing, Instructed Patient to Remain Seated (Not onExam Table) Until Exam, and Increased Observations by Caregivers PATIENT GENDER DATA: Male PATIENT RELEVANT IMPLANT DATA REVIEWED: Not Applicable RADIOLOGY DEPARTMENT: General X-ray: Exam(s) Completed: Spine X-Ray(s): Scoliosis Series PERIPHERAL IV DATA: Not applicable SIGNED BY: RT Mandeep(R) July 20, 2022 1:13 PM documented in this encounterChillic[facility]10-24-2022 Miscellaneous Notes* Telephone Encounter - Corrie Hamm LPN - 07/19/2022 2:35 PM EDT Called spoke to patient's spouse, made aware that Dr. Baeza has put in an order to have x-ray done prior to his visit on 07/19/22. documented in this encounterChillic[facility]10-24-2022 Miscellaneous Notes* Telephone Encounter - Patience Martin RN - 07/19/2022 9:29 AM EDT Peter of patient called to schedule surgery that was postpone prior for: CERVICAL EXPLORATION , ESOPHAGEAL DIVERTICULECTOMY, ESOPHAGOMYOTOMY She mentions that Javier had his Cath on 07/16 and was clear and now asking to reschedule surgery ? Dr Rdz: ADDITIONAL PROCEDURES CORONARY ANGIOGRAPHY: LEFT MAIN TRUNK: No Stenosis LEFT ANTERIOR DESCENDING: No Stenosis LEFT CIRCUMFLEX: No Stenosis DOMINANT: NO RIGHT CORONARY: No Stenosis, mild atherosclerosis DOMINANT: YES POSTERIOR DESCENDING: No Stenosis POSTERIOR LATERAL: No Stenosis documented in this encounterChillic[facility]10-18-2022 Miscellaneous Notes* Telephone Encounter - Miguel A Guerrier - 07/13/2022 2:05 PM EDTSummary: Research Outreach GUARDIAN IRB# [id number] IRB # [id number] Tight perioperative blood pressure management to reduce serious cardiovascular, renal,and cognitive complications: The GUARDIAN trial PI: Brinda Colon MD, CHARLY, FASA. Outcomes Research Department. Anesthesia [place]. [facility]. This is a research study note. Patient assessments recorded here should not guide either clinical care or clinical decision-making. I spoke with Javier Bond regarding eligibility for the Guardian study. Patient is not interested in research at this time. Miguel A Guerrier Research Cutter Finisher Department of OUTCOMES RESEARCH Anesthesiology [place] documented in this encounterChillicothe [facility]10-17-2022 NoteHNO ID: [id number] Author: DARIN Dubose Service: Nuclear Medicine Author Type: Technologist Type: Progress Notes Filed: 07/12/2022 9:16 AM Note Text: RADIOLOGY SERVICE PROGRESS NOTE SERVICE DATE: 07/12/2022 SERVICE TIME: 9:12 AM PATIENT IDENTITY VERIFICATION COMPLETED USING TWO (2) STANDARD IDENTIFIERS: Name and Date of confirmed by patient verbally and Name and Date of confirmed by identification band FALL SCREENING: Has the patient had 2 falls in the last year or 1 fall with injury or currently using an Ambulatory Assistive Device (Walker, Cane, Wheelchair, Crutches, etc.)? Yes, Patient High Risk for Falls What interventions were put in place to prevent falls during this visit? Instructed Patient to Call for Help if Needed and Increased Observations by Caregivers PATIENT GENDER DATA: .male ALLERGIES: Reviewed and unchanged MEDICATIONS REVIEWED: Not applicable PATIENT RELEVANT IMPLANT DATA REVIEWED: Not Applicable CREATININE: Creatinine Date Value Ref Range Status 07/09/2022 0.93 0.73 - 1.22 mg/dL Final 03/15/2022 0.97 0.73 - 1.22 mg/dL Final 01/01/2022 0.86 0.73 - 1.22 mg/dL Final Estimated Glomerular Filtration Rate Date Value Ref Range Status 07/09/2022 84 >=60 mL/min/1.73m? Final Comment: Estimated Glomerular Filtration Rate (eGFR) is calculated using the 2020 CKD-EPI creatinine equation. This equation utilizes serum creatinine, sex, and age as parameters. The creatinine assay has traceable calibration to isotope dilution-mass spectrometry. Refer to KDIGO guidelines for clinical interpretation. In patients with unstable renal function, e.g. those with acute kidney injury, the eGFR may not accurately reflect actual GFR. eGFR- Date Value Ref Range Status 09/04/2021 >60 Final P.O.C.T. RESULTS: N/A July 12, [address] PERFORMED: No IV SITE: Ambulatory: A peripheral IV was started in the Right antecubital site with a Angio cath: 22 gauge. POST EXAM PIV STATUS: Discontinued PROCEDURE TYPE: HI Stress: 12.3 mCi [id number] was administered IV for Rest Imaging at 07:27 by . 32.4 mCi [id number] was administered IV for Stress Imaging at 08:19 by . PATIENT DISCHARGED TO: Ambulatory patient, left HI department area. A Diagnostic radioactive procedure has taken place, with no further precautions necessary other than routine body substance precautions. More information regarding radiation safety can be found using this link: [email or web address] SIGNATURE: DARIN Dubose PATIENT NAME: Javier Bond DATE: July 12, 2022 TIME: 9:12 AM [phone] History of Present illness Narrative* DARIN Dubose - 07/12/2022 7:15 AM EDT RADIOLOGY SERVICE PROGRESS NOTE SERVICE DATE: 07/12/2022 SERVICE TIME: 9:12 AM PATIENT IDENTITY VERIFICATION COMPLETED USING TWO (2) STANDARD IDENTIFIERS: Name and Date of confirmed by patient verbally and Name and Date of confirmed by identification band FALL SCREENING: Has the patient had 2 falls in the last year or 1 fall with injury or currently using an Ambulatory Assistive Device (Walker, Cane, Wheelchair, Crutches, etc.)? Yes, Patient High Riskfor Falls What interventions were put in place to prevent falls during this visit? Instructed Patient to Callfor Help if Needed and Increased Observations by Caregivers PATIENT GENDER DATA: .male ALLERGIES: Reviewed and unchanged MEDICATIONS REVIEWED: Not applicable PATIENT RELEVANT IMPLANT DATA REVIEWED: Not Applicable CREATININE: Creatinine Date Value Ref Range Status 07/09/2022 0.93 0.73 - 1.22 mg/dL Final 03/15/2022 0.97 0.73 - 1.22 mg/dL Final 01/01/2022 0.86 0.73 - 1.22 mg/dL Final Estimated Glomerular Filtration Rate Date Value Ref Range Status 07/09/2022 84 >=60 mL/min/1.73m Final Comment: Estimated Glomerular Filtration Rate (eGFR) is calculated using the 2020 CKD-EPI creatinine equation. This equation utilizes serum creatinine, sex, and age as parameters. The creatinine assay has traceable calibration to isotope dilution- mass spectrometry. Refer to KDIGO guidelines for clinical interpretation. In patients with unstable renal function, e.g. those with acute kidney injury, the eGFRmay not accurately reflect actual GFR. eGFR- Date Value Ref Range Status 09/04/2021 >60 Final P.O.C.T. RESULTS: N/A July 12, [address] PERFORMED: No IV SITE: Ambulatory: A peripheral IV was started in the Right antecubital site with a Angio cath: 22 gauge. POST EXAM PIV STATUS: Discontinued PROCEDURE TYPE: HI Stress: 12.3 mCi [id number] was administered IV for Rest Imaging at 07:27 by . 32.4 mCi [id number] was administered IV for Stress Imaging at 08:19 by . PATIENT DISCHARGED TO: Ambulatory patient, left HI department area. A Diagnostic radioactive procedure has taken place, with no further precautions necessary other than routine body substance precautions. More information regarding radiation safety can be found usingthis link: [email or web address] 20Diagnostic%20Nuclear%20Medicine%[email or web address] SIGNATURE: DARIN Dubose PATIENT NAME: Javier Bond DATE: July 12, 2022 TIME: 9:12 AM PAGER/CONTACT #: documented in this [facility]10-14-2022 Miscellaneous Notes* Telephone Encounter - Belem Smith RN - 07/09/2022 1:59 PM EDT Spoke with patient's regarding reminder for stress test on Tuesday and given instructions documented in this [facility]10-14-2022 Miscellaneous Notes* Addendum Note - Brandi Messina APRN.CNP - 07/09/2022 10:41 AM EDTAddended by: BRANDI MESSINA on: 07/09/2022 10:41 AM Modules accepted: Orders documented in this [facility]10-14-2022 Instructions* Patient Instructions* Brandi Messina APRN.CNP - 07/09/2022 9:31 AM EDT PATIENT PREOPERATIVE INSTRUCTIONS Alok Marroquin MD has scheduled you for your procedure at this surgery center: [facility]: [phone] --[id number] [address]. Please check in on the1st floor at registration desk 6. Please read below carefully for your personalized instructions. Dietary Restrictions: - No solid food after midnight. - You may have 12 ounces of clear liquids (water, clear juices such as apple juice or gatorade, carbonated beverages, clear tea, black coffee, jello) until 2 hours before scheduled arrival at facility. No red/purple coloring and no creamer/sugar Medications: Unless instructed differently below, stay on all of your medications until your surgery. Approved medications to take the morning of surgery with a sip of water: Finasteride, Atorvastatin,Tamsulosin, Pantoprazole Do not take Quinapril or Lasix the morning or evening prior to surgery If you take any medications for erectile dysfunction-Cialis (Tadalafil), Levitra, Staxyn (Vardenafil) Viagra (Sildenenafil please do not take these for 48 hours before surgery. If you start any new medications after today's visit, please contact the surgeon's office. Blood Thinning Medications: - Stop NSAIDS (Ibuprofen, Advil, Aleve, Motrin, Celebrex, Mobic, etc.) 7 days before surgery, as directed by your surgeon. - Stop Aspirin 7 days before surgery, as directed by your surgeon. - Stop Vitamin E, ALL multi-vitamins, herbals and dietary supplements 7 days before surgery. - You may take Tylenol (Acetaminophen) or any of your pain medications that do not contain aspirin or NSAIDS as needed. Important Reminders: - If you use CPAP/BIPAP, bring the machine with you to the surgery center. - If you are prescribed inhalers for breathing, continue using them. - Candy, mints, and tobacco products are NOT permitted the morning of surgery. - Hearing aids, dentures and glasses may be worn the morning of surgery. - NO jewelry, body piercings, makeup, hairpins or contacts are to be worn the day of surgery. If you develop symptoms such as a fever, cold, or flu, or have other changes to your health within TWO DAYS of scheduled surgery or the morning of surgery, please contact the surgery center above. Personal Belongings: -Please have photo ID and insurance cards. -If you do not have a copy of advance directives on file with us, please bring a copy with you on the day of surgery. - Leave ALL valuables and money at home or with family members. For Outpatient Procedures: - YOU MUST HAVE A RESPONSIBLE CALENDER OPERATOR HELPER TAKE YOU HOME. A WEB PAGE DESIGNER OR PARQUET FLOOR LAYER'S HELPER CANNOT BE MADE A RESPONSIBLE CALENDER OPERATOR HELPER. - We recommend that a responsible person stays with you overnight to take care of you. - You cannot stay in a hotel alone after outpatient surgery. You will not be permitted to have yoursurgery, if you do not have someone to take care of you. Arrival Time for Surgery: - The Surgery Center or hospital where you are having surgery will call the afternoon before surgery (or Tuesday for Tuesday surgery) with a scheduled arrival time. - If you have not heard by 4 pm, please contact the surgery center above. Please be aware that emergency situations arise, which may delay or change your surgical time. If this happens, we will notify you as soon as possible and regret any inconvenience. If you already have an Advance Directive, please fax a copy to [phone] or email to for it to be added to your chart. If you do not have an Advance Directive, you can find the appropriate form and more information at [email or web address]. We recommend that youcomplete the Advance Directive form found on the website and bring it with you the day of your surgery. It can be witnessed and scanned into your chart that day. Brandi Messina APRN.RHODA [facility] History and physical note * Brandi Messina APRN.CNP - 07/09/2022 9:11 AM EDT HISTORY AND PHYSICAL EXAMINATION SERVICE DATE: 07/09/2022 SERVICE TIME: 9:11 AM PRIMARY CARE PHYSICIAN: Francisco Bahena MD REASON FOR VISIT: Javier Bond is a 81 year old male who is scheduled for at the request of Dr.Vincent Brandan Marroquin for. My final recommendation will be communicated back to the requesting physicianby way of shared medical record or letter. 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 Other Idiopathic Scoliosis, Lumbar Region Primary Osteoarthritis of Both First Carpometacarpal Joints Situational Anxiety Ilioinguinal Neuralgia of Left Side History of Compression Fracture of Spine Osteoporosis Hypercalciuria, Idiopathic Lumbar Radiculopathy Chronic Constipation Thyroid Nodule Bilateral Carotid Artery Stenosis Degenerative Lumbar Spinal Stenosis S/P Lumbar Spinal Fusion Oropharyngeal Dysphagia Situational Depression Walker As Ambulation Aid Weakness of Lower Extremity Unstable Gait Prostate Disorder Medication Management Elevated Blood Sugar Medicare Annual Wellness Visit, Subsequent Other Specified Anemias Peripheral Edema Luq Pain Hiatal Hernia Esophageal Diverticulum COVID-19 Immunization Status COVID-19 VACCINE (Series Information) Completed 06/29/2022 Imm Admin: COVID-19 booster vaccine, age 12+ yr, bivalent (Mobiscope-BIONTECH) 12/28/2021 Imm Admin: COVID-19 vaccine, age 12+ yr (PFIZER-BIONTECH - DUMONT TOP) 06/19/2021 Imm Admin: COVID-19 vaccine, age 12+ yr (PFIZER-BIONTECH - PURPLE TOP) Only the first 3 history entries have been loaded, but more history exists. CHIEF COMPLAINT: Pre-op exam HPI: MO is a 81 yo seen for PAC due to scheduled above surgery because of esophageal diverticulum. 06/23/2022 Dr. Wilde HPI: Javier Bond is a very pleasant 81-year old gentleman who has been diagnosed with a Zenker'sdiverticulum. The patient complains of regurgitation, constantly having to ' clear his throat ' anddysphagia. The patient also has a hiatal hernia. He is referred to discuss diverticulectomy and esophagomyotomy today. REVIEW OF SYSTEMS: General: No weight loss, malaise or fevers. Neurological: No history of TIA's, stroke, JAVA CONSULTANT tumor, impaired sensorium, hemiplegia, paraplegia orquadraplegia. No neurological symptoms or problems. Respiratory: +COVID vaccines. No history of current cough or dyspnea, or pneumonia in the past 6 weeks. No history of respiratory/pulmonary symptoms or problems. Cardiovascular: Positive for: hyperlipidemia (on rx) and hypertension (on rx) Negative for: anticoagulation therapy, arrhythmia, atrial fibrillation, CAD, chest pain, CHF, DVT/PE and murmur/valvular heart disease. GI: +chronic constipation, rx Positive for: dysphagia and GERD (on rx, +hiatal hernia) Negative for: abdominal pain, colon cancer, diverticulitis, irritable bowel syndrome, inflammatory bowel disease, liver disease, nausea, pancreatitis, vomiting and ETOH >2 drinks/day. : Positive for: BPH (on rx), nephrolithiasis and renal failure (hx BRITTANY, improved). Patient's renal failure is acute. Negative for: urinary tract infection. Endocrine: Negative for: diabetes mellitus and hypothyroidism. Hematology: Positive for: bruises/bleeds easily and chronic anti-coagulation/platelet meds. Patient is on anti-coagulation/platelet medication(s): Aspirin. Negative for: anemia and transfusion of at least 4 units within 72 hours prior to surgery. Oncology: No history of CA metastasis, chemo within 30 days, or radiotherapy within 90 days. No history of oncological symptoms or problems. Psych: Positive for: anxiety (rx as needed). Musculoskeletal: +osteoporosis, on supplements +compression fracture C3 S/p lumbar fusion +right leg numbness Positive for: back pain. Skin: Negative for lesions, rash and itching. 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 Chronic constipation 12/03/2020 Compression fracture of third lumbar vertebra (HCC) 11/05/2019 Degenerative lumbar spinal stenosis 12/15/2020 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/28/2017 Elevated blood sugar 08/31/2021 Episodic cluster headache, not intractable 09/09/2015 Essential hypertension, benign Family history of malignant neoplasm of gastrointestinal tract GERD (gastroesophageal reflux disease) 03/25/2009 History of compression fracture of spine 11/05/2019 Hypercalciuria, idiopathic 02/11/2020 Hypertrophy of prostate without urinary obstruction and other lower urinary tract symptoms (LUTS) Ilioinguinal neuralgia of left side 09/27/2019 Internal hemorrhoids without mention of complication Lumbar degenerative disc disease 09/14/2012 Lumbar radiculopathy 07/03/2020 Medicare annual wellness visit, subsequent 09/10/2021 Medicare Part B: Not able to find Last done: 09/10/2021 Nephrolithiasis 07/04/2007 Osteoporosis 01/28/2020 Other specified anemias 03/16/2022 Acute blood loss 11/2020 (post surgery) Primary osteoarthritis of both first carpometacarpal joints 05/04/2018 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 09/09/2015 Rosacea 09/09/2015 S/P lumbar spinal fusion 12/15/2020 Sepsis due to Gram-negative organism with septic shock (HCC) 12/17/2020 Proteus mirabilis UTI Situational anxiety 06/27/2019 Situational depression 02/27/2021 Spondylosis of lumbar region without myelopathy or radiculopathy 03/10/2018 Thyroid nodule 12/03/[address] 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 LAP, REVISION DEMETRIO FUNDOPLASTY 03/11/2009 hiatal hernia LAPAROSCOPY SURG CHOLECYSTECTOMY 03/11/09 LITHOTRIPSY XTRCORP SHOCK WAVE 1982,12/07/2006, 2011 NEPHROLITHOTOMY REMOVAL STAGE 1 Right 11/28/2006, 2011 (R) ureteroscopic OPEN REPAIR OF ROTATOR CUFF ACUTE Right 12/06/2002 OPEN REPAIR OF ROTATOR CUFF ACUTE Left 08/26/2004 PERIPHERAL NERVE BLOCK (MOD 59) Bilateral 11/01/2016, 03/28/2018 bilateral lumbar facet medial branch nerve block (l4-5, L5-S1) REMOVAL OF HEMORRHOID CLOT 06/2017 TONSILLECTOMY HX Childhood XCAPSL CTRC RMVL INSJ IO LENS PROSTH W/O ECP Bilateral 08/25/2016 FAMILY HISTORY Problem Relation Age of Onset Cancer Mother lung Cancer Father colon Cancer Brother lymphoma Social History Tobacco Use Smoking status: Former Types: Cigarettes Quit date: 06/24/1963 Years since quittin.0 Smokeless tobacco: Never Tobacco comments: quit in his 20's - smoked socially while in college Vaping Use Vaping Use: Never used Substance Use Topics Alcohol use: Yes Comment: 1-2 drinks in A MONTH Drug use: No Prior to Admission medications as of 06/24/22 0855 Medication Sig Last Dose Taking pantoprazole (PROTONIX) 40 mg tablet Take 40 mg by mouth once daily. hydroCHLOROthiazide (HYDRODIURIL, ESIDRIX) 12.5 mg tablet Take 1 tablet by mouth once daily. furosemide (LASIX) 20 mg tablet Take 1 tablet by mouth once daily. tamsulosin (FLOMAX) 0.4 mg Take 1 capsule by mouth once daily. traZODone (DESYREL) 50 mg tablet Take 0.5 tablets by mouth once daily. atorvastatin (LIPITOR) 10 mg tablet Take 1 tablet by mouth daily at bedtime. For cholesterol. quinapril (ACCUPRIL) 5 mg tablet Take 1 tablet by mouth once daily. doxycycline 20 mg tablet Take 20 mg by mouth twice daily. finasteride (PROSCAR) 5 mg tablet Take 1 tablet by mouth once daily. OTC PRODUCT Taking stool softner 250 mg daily multivit-min/iron/folic acid/K (ADULTS MULTIVITAMIN ORAL) Take by mouth as directed. lactobacillus combination no.8 (ADULT PROBIOTIC ORAL) Take by mouth as directed. MEDICAL SUPPLY KA for right lower extremity. Patient not taking: Reported on 03/15/2022 acetaminophen (TYLENOL) 500 mg tablet Take 2 tablets by mouth every 8 hours as needed for Pain or Fever. aspirin 81 mg chewable tablet Take 1 tablet by mouth once daily. melatonin 3 mg tablet Take 1 tablet by mouth daily at bedtime. calcium carbonate 600 mg-cholecalciferol 400 units (CALCIUM 600 + D) 600 mg(1,500mg) -400 unit tab Take 1 tablet by mouth twice daily. metroNIDAZOLE 0.75 % cream Apply 1 application to affected area twice daily. Medication Comments documented by Tadeo Caballero on 10/28/2008 at 1002. 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 ALLERGIES Allergen Reactions Contrast Dye Hives Finacea [Azelaic Ac* Rash Bactrim [Sulfametho* Unknown Bextra [Valdecoxib] Unknown Cardura [Doxazosin * Unknown Ciprofloxacin Unknown Cytotec [Misoprosto* Unknown Fosamax [Alendronat* Vomiting heartburn, vomiting Gabapentin Mental Status Change Keflex [Cephalexin] Rash Ketoconazole Unknown Levofloxacin Other: See Comments Pseudomonas Mobic [Meloxicam] Unknown Nitrofurantoin Other: See Comments Per , "he didn't feel well" - unsure of reaction Nsaids (Non-Steroid* Unknown GI UPSET Relafen [Nabumetone] Unknown Terbinafine GI Upset Objective PHYSICAL EXAM: General: alert and oriented (x3) and healthy appearance. Pertinent negatives noted - not distressed. Wheeled walker. Skin: normal color, no rash or lesions. HEENT: EOM intact and pupils equal round. Pertinent negatives noted - no carotid bruit. Cardiovascular: regular rate and rhythm, normal S1 and S2, no rub, murmurs, or gallop. Respiratory: normal breath sounds, no wheezes or crackles. No chest wall deformity or tenderness. Abdomen: soft. Pertinent negatives noted - not tender. Extremities: Positive for edema (BLE 1+). Neurological: normal cognition and motor skills. Gait normal. No weakness or sensory deficit. PAIN ASSESSMENT: VITALS: BP 118/70 Pulse 77 Temp (Src) 99.2 (Temporal) Resp 16 Ht 5' 11" (1.80m) Wt 174 lb (78.9kg) SpO2 98% BMI 24.28 kg/(m^2). Diagnostic tests reviewed for today's visit: Lab Value Units Date High Low HB 12.9 g/dL 03/15/2022 17.0 13.0 HCT 40.6 % 03/15/2022 51.0 39.0 WBC 5.63 k/uL 03/15/2022 11.00 3.70 PLT 186 k/uL 03/15/2022 400 150 NA 139 mmol/L 03/15/2022 144 136 K 4.4 mmol/L 03/15/2022 5.1 3.7 GLUC 85 mg/dL 03/15/2022 99 74 BUN 26 mg/dL 03/15/2022 24 9 CREAT 0.97 mg/dL 03/15/2022 1.22 0.73 PTSEC No results within date range. INR No results within date range. APTT No results within date range. ALT No results within date range. AST No results within date range. TBILI No results within date range. TSH No results within date range. Lab Value Units Date High Low HCGQT No results within date range. UHCG No results within date range. HCG, BODY* No results within date range. Lab Value Units Date High Low ABORHD No results within date range. ABSCREEN No results within date range. Hemoglobin A1C (%) Date Value 03/15/2022 5.4 09/04/2021 5.2 02/27/2021 5.3 No results found for this or any previous visit (from the past 8760 hour(s)). Recent Results (from the past 29714 hour(s)) ECHO Collection Time: 07/02/22 9:54 AM Impression CONCLUSIONS: - Technically difficult exam due to body habitus. - Exam indication: Pre op clearance - The left ventricle is normal in size. Left ventricular systolic function is mildly decreased. EF = 50 5% (2D biplane) Grade I left ventricular diastolic dysfunction. - The right ventricle is normal in size. Right ventricular systolic function is normal. - There are no significant valvular abnormalities. - Exam was compared with the prior [facility] echocardiographic exam performed on 12/18/2020, LVEF has increased. Final Assessment Bilateral carotid artery stenosis Assessment: 08/2021 stable, right 20-40%, left 0-20% BPH with urinary obstruction Assessment: on rx Essential hypertension, benign Assessment: controlled on rx Last 14 BP Last 14 Encounter BP Readings: Date: BP: 06/23/2022 150/76 05/21/2022 110/60 03/15/2022 120/68 01/01/2022 114/60 09/10/2021 118/72 06/24/2021 110/70 06/08/2021 96/70 05/11/2021 128/80 02/27/2021 118/64 02/20/2021 118/50 02/02/2021 99/66 01/28/2021 80/40 01/17/2021 146/68 12/29/2020 143/78 GERD (gastroesophageal reflux disease) Assessment: controlled on rx Hiatal hernia Assessment: hx Osteoporosis Assessment: taking supplement Peripheral edema Assessment: on rx 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 Assessment: h/o, PCP following, asymptomatic currently Situational anxiety Assessment: rx as needed Spondylosis of lumbar region without myelopathy or radiculopathy Assessment: s/p lumbar spinal fusion Thyroid nodule Assessment: bx benign Melendrez Activity Status Index: METS: Walk indoors, such as around the house (1.75 METs) Do light work around the house, such as dusting or washing dishes (2.70 METs) Take care of self; that is eating, dressing, bathing, using the toilet (2.75 METs) Walk a block or two on level ground (2.75 METs) Climb a flight of stairs or walk up a hill (5.50 METs) DASI Score: 15.45 Patient denies any chest pain or undue shortness of breath with the above physical activity. Clinical Frailty Scale: 4. Apparently vulnerable STOP-Bang Score: Snores loudly Patient over 50 years old Male patient Denies feeling tired, fatigued, or sleepy during the daytime Has not been observed to stop breathing or choking/gasping during sleep Denies having high blood pressure BMI less than or equal to 35 kg/m^2 Does not have a large neck STOP-Bang Score: 3 [id number] Score: Age: >=75 Sex: male CHF history: No Hypertension history: Yes Stroke/TIA/thromboembolism history: No Vascular disease history: No Diabetes history: No [id number] Score: 3 ARISCAT Score: Age: 51-80 Preoperative SpO2: >=96% Respiratory infection in the last month: No Preoperative anemia: No Surgical incision: peripheral Duration of surgery: <2 hrs Emergency procedure: No ARISCAT Score: 3 ASA Class: 3 ANESTHESIA FINDINGS: Intubation History: No history of difficult intubation Significant Anesthesia Considerations: none Airway History: No history of difficult airway I - PHYSICAL EVALUATION AIRWAYTracheostomy tube not present Mallampati: II. TM distance: >3 FB. Neck ROM: full ROM without neurological symptoms. Mouth opening: adequate. Short neck: no. Thick neck: no DENTAL Dentures, upper: complete. Dentures, lower: partial. II - ANESTHESIA PLAN ASA Score: 3 Anesthetic Plan: other Anesthetic plan additional comments: *PACC - anesthesia choice. Informed Consent Anesthetic risks, benefits, alternatives, personnel and consent discussed: yes. Patient / Responsible Constitution Party agrees to proceed: yes Patient / Surrogate agrees to blood products: Yes Prepared for Surgery: optimally prepared for surgery, pending [see comment]. EKG and labs Pending stress test 07/12/2022 CONSULTS: Patient does not require consults for optimization at this time Planned Anesthetic: other anesthesia choice The Following Tests/Procedures Have Been Initiated: No orders of the defined types were placed in this encounter. Instructions Given to Patient: Instructions located in the after visit summary. Patient given verbal and written preop instructions and voices comprehension and compliance. SIGNATURE: Brandi Messina APRN.CNP PATIENT NAME: Javier Bond DATE: July 09, 2022 TIME: 9:12 AM PAGER/CONTACT #: [facility] this [facility] Miscellaneous Notes* Telephone Encounter - Yash Monroe MA - 07/09/2022 8:42 AM EDT Patient has been identified by name and date of : Yes Requested Prescriptions Pending Prescriptions Disp Refills atorvastatin (LIPITOR) 10 mg tablet 30 tablet 5 Sig: Take 1 tablet by mouth daily at bedtime. For cholesterol. RX INSTRUCTIONS: Patient aware RX will be sent to pharmacy. No need to notify patient. Yash Monroe MA Christa: 02/2022 Nov: 09/2022 Last refill: 02/2022 documented in this encounterCh[facility]10-[facility]22 Procedure note* ABEL Fraser - 07/02/2022 9:46 AM EDTAssociated Order(s): SIX MINUTE WALK RESPIRATORY THERAPY SIX MINUTE WALK TEST OXIMETRY REPORT Six Minute Walk Test for This Encounter Oxygen Device Liters FIO2 SpO2% HR Activity Feet Speed (MPH) Flag R/A 98 90 Resting R/A 96 111 Six Minute Walk 700 1.3 R/A 97 82 Recovery 1 minute post R/A 97 87 Recovery 2 minute post R/A 97 90 Recovery 3 minute post General Information Height Weight Smoking Status Pulse Oximetry Site Oximeter Pre Blood Pressure Post Blood Pressure Total Time Spent (min) 180.3 cm (5' 11") 78.5 kg (173 lb) Ex-smoker R Index Finger Masimo 129/66 147/67 45 _ Distance Walked (meters) Distance Walked (feet) Male Predicted Walk Distance (feet) Male Lower Limit of Normal (feet) Male % Predicted Total Duration Of The Stops (seconds) 213.36 700 1710.96 1208.96 40.9 -- _ Lowest SpO2 During 6 Minute Walk Pre-Demarco Dyspnea Rating Pre-Demarco Fatigue Rating Post Deamrco Dyspnea Rating Post Demarco Fatigue Rating O2 Supply Carrier Walking Assistance/Device 95 % -- 0 0 0 -- Other: See Comment Six Minute Walk Trend (Previous Encounters) None SIGNATURE: ABEL Fraser PATIENT NAME: Javier Bond DATE: July 02, 2022 TIME: 9:46 AM _ Comments: own rolling walker Associated attestation - Emily Rosas MD - 07/02/2022 1:38 PM EDT The patient completed the six minute walk test with No stops. . The patient required Room Air to complete the test. The distance the patient walked in six minutes is extremely reduced. This is the first time patient takes the six minute walk test. The patient perceived their dyspnea during the six minute walk test to be 0- Nothing at all on the modified Demarco scale. The patient perceived their fatigue during the six minute walk test to be 0- Nothing at all on the modified Demarco scale. No desaturation with ambulation. I have reviewed the findings and made appropriate revisions as needed. SIGNATURE: Emily Rosas MD PATIENT NAME: Javier Bond DATE: July 02, 2022 TIME: 1:38 PM documented in this encounterChillic[facility]10-07-2022 History of Present illness Narrative* ABEL Fraser - 07/02/2022 9:42 AM EDT PULM FUNCTION SMARTBLOCK: Provider: Sofia Wilde MD Assisting Tech: ABEL Fraser Spirometry: 1 DLCO: 1 6 MW: 1 documented in this encounterChillicothe [facility]09-30-2022 Miscellaneous Notes* Telephone Encounter - Yolette Daley - 06/25/2022 10:18 AM EDT Patients called asking where to get his labs drawn, told him to go to any [facility] I could schedule him an appt. He will go when at [employer] next week. She asked to speak to the nurse about his medications and questions about the Covid Booster. Please call patient documented in this encounterChillicothe [facility]09-29-2022 History of Past illness Narrative* Problem Noted Date Diagnosed Date Resolved Date Esophageal diverticulum 06/24/202205/2023 Overview: S/p removal 08/2022 Sepsis due to Escherichia coli (E. coli) 12/17/2020 12/17/2020 Last Assessment & Plan: Assessment: 12/17 patient is tachycardic, hypotensive, lactate elevated, given some pressors and fluid by Amet, Blood culture pending. 12/16 UA and Ucx grow GNB. Started on zosyn. PLAN: - Zosyn - Follow up culture - Keep Map >65, pressors as needed, currently on Levo Hemodynamic instability 12/17/202012/2020 Last Assessment & Plan: Assessment: Likely urosepsis, on levo gtt PLAN: Keep Map >65, pressors as needed, currently on Levo Sepsis due to Gram-negative organism with septic shock 12/17/2020 12/22/2020 Last Assessment & Plan: Assessment: - Proteus identified in blood and urine, bourgeois-sensitive - Showed great improvement over the last 2 days - Now off pressors and extubated. PLAN: - Amikacin re-dosed 12/19. Continue zosyn - CT chest/abdomen/pelvis to assess for potential additional sources of infection was unremarkable. - Follow up C/S - Stress dose steroids Acute postoperative respiratory insufficiency 12/18/1912/22/2020 Last Assessment & Plan: Assessment: - PTX on 12/18 CXR, s/p 14Fr pigtail. This has been repositioned as needed. - Currently extubated with adequate O2 saturations on room air PLAN: - Monitor respiratory status. - Will assess tpday for Pigtail removal BRITTANY (acute kidney injury) 12/17/2020 Last Assessment & Plan: Assessment: - Resolving, likely prerenal versus less likely ATN given speed of improvement - Solute clearance appropriate - UOP good volume - New almanza inserted 12/17 PLAN: - Continue resuscitation - Trend CMP Delirium 12/16/2020 12/22/2020 Last Assessment & Plan: Delirium likely 2/2 infection. Geriatrics has been following PLAN: -- continue oxycodone 2.5-5mg every 4 hours as needed for pain (NGT) -- limit narcotic -- treat active infection/supportive care Hypomagnesemia 12/16/2020 12/17/2020 Last Assessment & Plan: Assessment: Hypomagnesemia PLAN: -Magnesium sulfate 2 gm IV x 1. -Monitor: signs, symptoms, disease progression, disease regression. -Evaluate: test results, medication effectiveness, response to treatment. Hypophosphataemia 12/16/2020 12/17/2020 Last Assessment & Plan: Assessment: Hypophosphatemia PLAN: -Sodium phosphate 30 mmol IV x 1. -Monitor: signs, symptoms, disease progression, disease regression. -Evaluate: test results, medication effectiveness, response to treatment. 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 Author Type: Registered Nurse Type: Progress Notes Filed: 06/24/2022 8:57 AM Note Text: PATIENT EDUCATION The following was evaluated: Motivation To Learn: Interested Family/Significant Other Support: High - Very involved in pt care Cognitive Ability: Alert and oriented Patient Learns Best By: Multiple Methods The Following Influencing Factors Were Barriers To This Education Session: No barriers [employer] Employee Present: Not Applicable The Following Physical Limitations Were Barriers To This Education Session: None Instruction Provided To: Patient AND Family Discipline: Nursing Learning Topic: Pre-op Instructions given Patient Evaluation: Verbalizes understanding Follow Up Plan: Patient/Family will call us with questions Supplemental Material Given: TCI Patient Instructions: Thoracic Surgery Teach completed, topic: Listerine, Hibiclens AND current visitation policy AND restrictions Instructed By Patience Martin RN. In Department of THORACIC SURGERY.[facility] [facility] [id number] NoteHNO ID: [id number] Author: Sofia Wilde MD Service: ? Author Type: Physician Type: Progress Notes Filed: 06/24/2022 8:57 AM Note Text: REASON FOR EVALUATION: Zenker's diverticulum. HPI: Javier Bond is a very pleasant 81-year old gentleman who has been diagnosed with a Zenker's diverticulum. The patient complains of regurgitation, constantly having to ' clear his throat ' and dysphagia. The patient also has a hiatal hernia. He is referred to discuss diverticulectomy and esophagomyotomy today. ALLERGIES: No known drug allergies MEDICATIONS: Current Outpatient Medications on File Prior to Visit Medication Sig hydroCHLOROthiazide (HYDRODIURIL, ESIDRIX) 12.5 mg tablet Take 1 tablet by mouth once daily. furosemide (LASIX) 20 mg tablet Take 1 tablet by mouth once daily. tamsulosin (FLOMAX) 0.4 mg Take 1 capsule by mouth once daily. traZODone (DESYREL) 50 mg tablet Take 0.5 tablets by mouth once daily. atorvastatin (LIPITOR) 10 mg tablet Take 1 tablet by mouth daily at bedtime. For cholesterol. quinapril (ACCUPRIL) 5 mg tablet Take 1 tablet by mouth once daily. doxycycline 20 mg tablet Take 20 mg by mouth twice daily. finasteride (PROSCAR) 5 mg tablet Take 1 tablet by mouth once daily. OTC PRODUCT Taking stool softner 250 mg daily multivit-min/iron/folic acid/K (ADULTS MULTIVITAMIN ORAL) Take by mouth as directed. lactobacillus combination no.8 (ADULT PROBIOTIC ORAL) Take by mouth as directed. MEDICAL SUPPLY KAFO for right lower extremity. (Patient not taking: Reported on 03/15/2022 ) acetaminophen (TYLENOL) 500 mg tablet Take 2 tablets by mouth every 8 hours as needed for Pain or Fever. aspirin 81 mg chewable tablet Take 1 tablet by mouth once daily. melatonin 3 mg tablet Take 1 tablet by mouth daily at bedtime. (Patient not taking: Reported on 03/15/2022 ) calcium carbonate 600 mg-cholecalciferol 400 units (CALCIUM 600 + D) 600 mg(1,500mg) -400 unit tab Take 1 tablet by mouth twice daily. metroNIDAZOLE 0.75 % cream Apply 1 application to affected area twice daily. No current facility-administered medications on file prior to visit. PAST MEDICAL HISTORY: HISTORIES 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 Chronic constipation 12/03/2020 Compression fracture of third lumbar vertebra (HCC) 11/05/2019 Degenerative lumbar spinal stenosis 12/15/2020 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/28/2017 Elevated blood sugar 08/31/2021 Episodic cluster headache, not intractable 09/09/2015 Essential hypertension, benign Family history of malignant neoplasm of gastrointestinal tract GERD (gastroesophageal reflux disease) 03/25/2009 History of compression fracture of spine 11/05/2019 Hypercalciuria, idiopathic 02/11/2020 Hypertrophy of prostate without urinary obstruction and other lower urinary tract symptoms (LUTS) Ilioinguinal neuralgia of left side 09/27/2019 Internal hemorrhoids without mention of complication Lumbar degenerative disc disease 09/14/2012 Lumbar radiculopathy 07/03/2020 Medicare annual wellness visit, subsequent 09/10/2021 Medicare Part B: Not able to find Last done: 09/10/2021 Nephrolithiasis 07/04/2007 Osteoporosis 01/28/2020 Other specified anemias 03/16/2022 Acute blood loss 11/2020 (post surgery) Primary osteoarthritis of both first carpometacarpal joints 05/04/2018 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 09/09/2015 Rosacea 09/09/2015 S/P lumbar spinal fusion 12/15/2020 Sepsis due to Gram-negative organism with septic shock (HCC) 12/17/2020 Proteus mirabilis UTI Situational anxiety 06/27/2019 Situational depression 02/27/2021 Spondylosis of lumbar region without myelopathy or radiculopathy 03/10/2018 Thyroid nodule 12/03/[address] Zacarias PAST SURGICAL HISTORY Procedure Laterality Date ARTHRP INTERPOS INTERCARPAL/METACARPAL JOINTS Left 05/24/2018 Left thumb CMC arthroplasty with LRTI and MCP pinning of left thumb COLONOSCOPY FLX DX W/COLLJ SPEC WHEN PFRMD 07/17/08, 2012 COLONOSCOPY FLX DX W/COLLJ SPEC WHEN PFRMD 03/28/2019 [facility] CYSTO.PANENDO 02/20/2021 stent removal EGD TRANSORAL BIOPSY SINGLE/MULTIPLE 12/26/08 ESOPHAGOGASTRODUODENOSCOPY TRANSORAL DIAGNOSTIC 03/18/2020 EGD EXCISION OF CYST squamous cell on head LAP, REVISION DEMETRIO FUNDOPLASTY 03/11/2009 hiatal hernia LAPAROSCOPY SURG CHOLECYSTECTOMY 03/11/09 LITHOTRIPSY XTRCORP SHOCK WAVE 1982,12/07/2006, 2011 NEPHROLITHOTOMY REMOVAL STAGE 1 Right 11/28/2006, 2011 (R) ureteroscopic OPEN REPAIR OF ROTATOR CUFF ACUTE Right 12/06/2002 OPEN REPAIR OF ROTATOR CUFF ACUTE Left 08/26/2004 PERIPHERAL NERVE BLOCK (MOD 59) Bilateral 11/01/2016, 03/28/2018 bilateral lumbar facet medial branch nerve block (l4-5, L5-S1) REMOVAL OF HEMORRHOID C (more content not included)...[employer] 06-23-2022 History of Present illness Narrative* Patience Martin RN - 06/23/2022 12:25 PM EDT PATIENT EDUCATION The following was evaluated: Motivation To Learn: Interested Family/Significant Other Support: High - Very involved in pt care Cognitive Ability: Alert and oriented Patient Learns Best By: Multiple Methods The Following Influencing Factors Were Barriers To This Education Session: No barriers [employer] Employee Present: Not Applicable The Following Physical Limitations Were Barriers To This Education Session: None Instruction Provided To: Patient & Family Discipline: Nursing Learning Topic: Pre-op Instructions given Patient Evaluation: Verbalizes understanding Follow Up Plan: Patient/Family will call us with questions Supplemental Material Given: TCI Patient Instructions: Thoracic Surgery Teach completed, topic: Regina, Silvioiclesury & current visitation policy & restrictions Instructed By Patience Matrin RN. In Department of THORACIC SURGERY. * Sofia Wilde MD - 06/23/2022 10:30 AM EDT Images from the original note were not included. REASON FOR EVALUATION: Zenker's diverticulum. HPI: Javier Bond is a very pleasant 81-year old gentleman who has been diagnosed with a Zenker'sdiverticulum. The patient complains of regurgitation, constantly having to ' clear his throat ' anddysphagia. The patient also has a hiatal hernia. He is referred to discuss diverticulectomy and esophagomyotomy today. ALLERGIES: No known drug allergies MEDICATIONS: Current Outpatient Medications on File Prior to Visit Medication Sig hydroCHLOROthiazide (HYDRODIURIL, ESIDRIX) 12.5 mg tablet Take 1 tablet by mouth once daily. furosemide (LASIX) 20 mg tablet Take 1 tablet by mouth once daily. tamsulosin (FLOMAX) 0.4 mg Take 1 capsule by mouth once daily. traZODone (DESYREL) 50 mg tablet Take 0.5 tablets by mouth once daily. atorvastatin (LIPITOR) 10 mg tablet Take 1 tablet by mouth daily at bedtime. For cholesterol. quinapril (ACCUPRIL) 5 mg tablet Take 1 tablet by mouth once daily. doxycycline 20 mg tablet Take 20 mg by mouth twice daily. finasteride (PROSCAR) 5 mg tablet Take 1 tablet by mouth once daily. OTC PRODUCT Taking stool softner 250 mg daily multivit-min/iron/folic acid/K (ADULTS MULTIVITAMIN ORAL) Take by mouth as directed. lactobacillus combination no.8 (ADULT PROBIOTIC ORAL) Take by mouth as directed. MEDICAL SUPPLY KAFO for right lower extremity. (Patient not taking: Reported on 03/15/2022 ) acetaminophen (TYLENOL) 500 mg tablet Take 2 tablets by mouth every 8 hours as needed for Pain or Fever. aspirin 81 mg chewable tablet Take 1 tablet by mouth once daily. melatonin 3 mg tablet Take 1 tablet by mouth daily at bedtime. (Patient not taking: Reported on 03/15/2022 ) calcium carbonate 600 mg-cholecalciferol 400 units (CALCIUM 600 + D) 600 mg(1,500mg) -400 unit tab Take 1 tablet by mouth twice daily. metroNIDAZOLE 0.75 % cream Apply 1 application to affected area twice daily. No current facility-administered medications on file prior to visit. PAST MEDICAL HISTORY: HISTORIES PAST MEDICAL HISTORY Diagnosis Date Benign intracranial hypertension 11/30/2002 Bilateral carotid artery stenosis 12/03/2020 US 08/2020: Rt 20-40%, Lt 0-20% 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 Chronic constipation 12/03/2020 Compression fracture of third lumbar vertebra (HCC) 11/05/2019 Degenerative lumbar spinal stenosis 12/15/2020 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/28/2017 Elevated blood sugar 08/31/2021 Episodic cluster headache, not intractable 09/09/2015 Essential hypertension, benign Family history of malignant neoplasm of gastrointestinal tract GERD (gastroesophageal reflux disease) 03/25/2009 History of compression fracture of spine 11/05/2019 Hypercalciuria, idiopathic 02/11/2020 Hypertrophy of prostate without urinary obstruction and other lower urinary tract symptoms (LUTS) Ilioinguinal neuralgia of left side 09/27/2019 Internal hemorrhoids without mention of complication Lumbar degenerative disc disease 09/14/2012 Lumbar radiculopathy 07/03/2020 Medicare annual wellness visit, subsequent 09/10/2021 Medicare Part B: Not able to find Last done: 09/10/2021 Nephrolithiasis 07/04/2007 Osteoporosis 01/28/2020 Other specified anemias 03/16/2022 Acute blood loss 11/2020 (post surgery) Primary osteoarthritis of both first carpometacarpal joints 05/04/2018 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 09/09/2015 Rosacea 09/09/2015 S/P lumbar spinal fusion 12/15/2020 Sepsis due to Gram-negative organism with septic shock (HCC) 12/17/2020 Proteus mirabilis UTI Situational anxiety 06/27/2019 Situational depression 02/27/2021 Spondylosis of lumbar region without myelopathy or radiculopathy 03/10/2018 Thyroid nodule 12/03/[address] Zacarias PAST SURGICAL HISTORY Procedure Laterality Date ARTHRP INTERPOS INTERCARPAL/METACARPAL JOINTS Left 05/24/2018 Left thumb CMC arthroplasty with LRTI and MCP pinning of left thumb COLONOSCOPY FLX DX W/COLLJ SPEC WHEN PFRMD 07/17/08, 2013 COLONOSCOPY FLX DX W/COLLJ SPEC WHEN PFRMD 03/28/2019 [facility] CYSTO.PANENDO 02/20/2021 stent removal EGD TRANSORAL BIOPSY SINGLE/MULTIPLE 12/26/08 ESOPHAGOGASTRODUODENOSCOPY TRANSORAL DIAGNOSTIC 03/18/2020 EGD EXCISION OF CYST squamous cell on head LAP, REVISION DEMETRIO FUNDOPLASTY 03/11/2009 hiatal hernia LAPAROSCOPY SURG CHOLECYSTECTOMY 03/11/09 LITHOTRIPSY XTRCORP SHOCK WAVE 1982,12/07/2006, 2011 NEPHROLITHOTOMY REMOVAL STAGE 1 Right 11/28/2006, 2011 (R) ureteroscopic OPEN REPAIR OF ROTATOR CUFF ACUTE Right 12/06/2002 OPEN REPAIR OF ROTATOR CUFF ACUTE Left 08/26/2004 PERIPHERAL NERVE BLOCK (MOD 59) Bilateral 11/01/2016, 03/28/2018 bilateral lumbar facet medial branch nerve block (l4-5, L5-S1) REMOVAL OF HEMORRHOID CLOT 06/2017 TONSILLECTOMY HX Childhood XCAPSL CTRC RMVL INSJ IO LENS PROSTH W/O ECP Bilateral 08/25/2016 Social History Tobacco Use Smoking status: Former Types: Cigarettes Quit date: 06/24/1963 Years since quittin.0 Smokeless tobacco: Never Tobacco comments: quit in his 20's - smoked socially while in college Vaping Use Vaping Use: Never used Substance Use Topics Alcohol use: Yes Comment: 1-2 drinks in A MONTH Drug use: No FAMILY HISTORY Problem Relation Age of Onset Cancer Mother lung Cancer Father colon Cancer Brother lymphoma REVIEW OF SYSTEMS: A 14-point review of systems was performed. All pertinent positives are listed in the HPI. All other systems reviewed are negative. EXAM: Physical Exam Vitals reviewed. Constitutional: General: He is not in acute distress. Appearance: Normal appearance. HENT: Head: Normocephalic and atraumatic. Nose: Nose normal. No congestion or rhinorrhea. Mouth/Throat: Mouth: Mucous membranes are moist. Pharynx: Oropharynx is clear. Eyes: General: No scleral icterus. Extraocular Movements: Extraocular movements intact. Conjunctiva/sclera: Conjunctivae normal. Pupils: Pupils are equal, round, and reactive to light. Neck: Vascular: No carotid bruit. Cardiovascular: Rate and Rhythm: Normal rate and regular rhythm. Pulses: Normal pulses. Heart sounds: Normal heart sounds. Pulmonary: Effort: Pulmonary effort is normal. No respiratory distress. Breath sounds: Normal breath sounds. No stridor. No wheezing, rhonchi or rales. Chest: Chest wall: normal. Abdominal: General: Abdomen is flat. Bowel sounds are normal. There is no distension. Palpations: Abdomen is soft. There is no mass. Tenderness: There is no abdominal tenderness. There is no right CVA tenderness, guarding or rebound. Hernia: No hernia is present. Musculoskeletal: General: No swelling, tenderness, deformity or signs of injury. Normal range of motion. Cervical back: Normal range of motion and neck supple. No rigidity or tenderness. Right lower leg: No edema. Left lower leg: No edema. Lymphadenopathy: Cervical: No cervical adenopathy. Skin: General: Skin is warm and dry. Coloration: Skin is not jaundiced or pale. Findings: No bruising, erythema, lesion or rash. Neurological: General: No focal deficit present. Mental Status: He is alert. Mental status is at baseline. Cranial Nerves: No cranial nerve deficit. Sensory: No sensory deficit. Motor: No weakness. Coordination: Coordination normal. Gait: Gait normal. Deep Tendon Reflexes: Reflexes normal. Psychiatric: Behavior: Behavior normal. Thought Content: Thought content normal. Judgment: Judgment normal. DIAGNOSTICS: I have personally reviewed the patient's available diagnotic studies, including: MODIFIED BARIUM SWALLOW 05/17/22: CT ABDOMEN/PELVIS 01/08/22: IMPRESSION: 1. No evidence of a bowel obstruction 2. Dilatation of the common bile duct and intrahepatic bile ducts, possibly due to prior cholecystectomy. Correlation with liver function tests is recommended. 3. Again noted are nonobstructing left renal calculi CAROTID DUPLEX 09/15/21: IMPRESSION Compared to prior study of 09/22/2020, no change in degree of stenosis bilaterally. RIGHT SIDE Common carotid artery: Plaque visualized without evidence of hemodynamically significant stenosis. Internal carotid artery: 20-39% stenosis. Vertebral artery: Patent and antegrade flow noted. Subclavian artery: Plaque visualized without evidence of hemodynamically significant stenosis. LEFT SIDE Common carotid artery: Plaque visualized without evidence of hemodynamically significant stenosis. Internal carotid artery: 0-19% stenosis. Vertebral artery: Patent and antegrade flow noted. EGD 03/15/20: FINAL DIAGNOSIS 1. Gastric antrum, biopsy (A) - Chronic inactive gastritis with reactive epithelial change, see comment. 2. Esophagus, distal and mid, biopsies (B, C) - Squamous mucosa with no significant diagnostic alteration. - No evidence of esophagitis COMMENT 1. Given the background of chronic gastritis a Helicobacter pylori immunostain was performed on block A1 and is negative for Helicobacter pylori organisms. IMPRESSIONS: Javier Bond is a very pleasant 81-year old gentleman who has been diagnosed with a Zenker's diverticulum. The patient complains of regurgitation, constantly having to ' clear his throat ' and dysphagia. The patient also has a hiatal hernia. He is referred to discuss diverticulectomy and esophagomyotomy today. I spent more than 45 minutes with this patient counseling the patient on his recently diagnosed Zenker's diverticulum. I personally reviewed all available diagnostic studies and documentation. I discussed management of this patient's Zenker's diverticulum. I discussed left cervical neck exploration, diverticulectomy and esophagomyotomy. I did discuss the risks, options, benefits and alternatives in detail with the patient. The patient understands the risks and complications and would like to proceed. All of his questions were answered today. The patient signed consent forms for operation. My office will schedule his operation and needed pre-operative testing, includin-D echocardiogram, cardiac stress testing, PFT testing, COVID testing and PAC appointment. Once again, thank you for your kind referral of Javier Bond to me. If you have any questions or if I can be of help to you with any of your other patients, please do not hesitate to contact me. [facility] in this [facility]09[facility] Instructions* Patient Instructions* Nubia Wilde - 06/23/2022 11:28 AM EDT Our office will call you to schedule your: Pulmonary function testing 6 minute walk test 2D Echo Cardiac stress test Pre-anesthesia testing COVID test Your operation is scheduled for Jul 15, 2022. documented in this encounterCh[facility]09-[facility]-2022 Miscellaneous Notes* Telephone Encounter - Yolette Daley - 06/16/2022 10:21 AM EDT Spoke with patient about scheduling the requested consult with Dr. Wilde. He stated he wanted to speak with his and call us back to reschedule documented in this encounterChillic[facility]09-20-2022 Miscellaneous Notes* Telephone Encounter - Nadia Humphreys RN - 06/15/2022 1:56 PM EDT Images from the original note were not included. Thoracic Surgery Consultation - review of records for appointment scheduling Received medical records from the office of MD Guru Arambula E Alie [address] [address] Patient is being referred to Unspecified/First Available for Esophageal Diverticulum Pathology: EGD 10/2019 CONVERTED FINAL DIAGNOSIS 1. Gastric antrum, biopsy (A) - Chronic inactive gastritis with reactive epithelial change, see comment. 2. Esophagus, distal and mid, biopsies (B, C) - Squamous mucosa with no significant diagnostic alteration. - No evidence of esophagitis. IG/lbk 03/19/2020 Imaging UGI: 05/17/2022 Cookie swallow 04/09/2022 Barium Swallow EGD 02/2020 Impression: - Normal examined jejunum. - Normal examined duodenum. - Gastritis. Biopsied. - Medium-sized hiatal hernia. - Non-severe reflux esophagitis. Biopsied. - Normal middle third of esophagus. Biopsied. - Erythema was visualized on the left arytenoid. Cardiopulmonary Testing PFT's/Six: Cardiac: echo 11/2020 CONCLUSIONS: - Technically difficult exam due to suboptimal positioning and mechanical ventilation. - Exam indication: Hypotension - The left ventricle is normal in size. Left ventricular systolic function is moderately decreased. EF = 35 5% (visual est.) Definity contrast used for endocardial border detection. Grade I left ventricular diastolic dysfunction. - The right ventricle is normal in size. Right ventricular systolic function is normal. - Estimated right ventricular systolic pressure is not reported due to an insufficient tricuspid regurgitation signal. Estimated right atrial pressure is 15 mmHg based on IVC assessment. - The patient has not had a prior CC echocardiographic exam for comparison. Office Notes/Consults Nubia Dwyer MA - Dr Bahena - pt prefers [facility] 1:42 PM Note Patient's called the office for an update on the referral to a thoracic surgeon. She also wanted to inform the ordering provider that they do not want to go to [facility] for surgery. They would prefer to go to either [facility] or [facility]. Please contact patient's for status update when referral is completed. 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 Chronic constipation 12/03/2020 Compression fracture of third lumbar vertebra (HCC) 11/05/2019 Degenerative lumbar spinal stenosis 12/15/2020 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/28/2017 Elevated blood sugar 08/31/2021 Episodic cluster headache, not intractable 09/09/2015 Essential hypertension, benign Family history of malignant neoplasm of gastrointestinal tract GERD (gastroesophageal reflux disease) 03/25/2009 History of compression fracture of spine 11/05/2019 Hypercalciuria, idiopathic 02/11/2020 Hypertrophy of prostate without urinary obstruction and other lower urinary tract symptoms (LUTS) Ilioinguinal neuralgia of left side 09/27/2019 Internal hemorrhoids without mention of complication Lumbar degenerative disc disease 09/14/2012 Lumbar radiculopathy 07/03/2020 Medicare annual wellness visit, subsequent 09/10/2021 Medicare Part B: Not able to find Last done: 09/10/2021 Nephrolithiasis 07/04/2007 Osteoporosis 01/28/2020 Other specified anemias 03/16/2022 Acute blood loss 11/2020 (post surgery) Primary osteoarthritis of both first carpometacarpal joints 05/04/2018 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 09/09/2015 Rosacea 09/09/2015 S/P lumbar spinal fusion 12/15/2020 Sepsis due to Gram-negative organism with septic shock (HCC) 12/17/2020 Proteus mirabilis UTI Situational anxiety 06/27/2019 Situational depression 02/27/2021 Spondylosis of lumbar region without myelopathy or radiculopathy 03/10/2018 Thyroid nodule 12/03/[address] Zacarias PAST SURGICAL HISTORY Procedure Laterality Date ARTHRP INTERPOS INTERCARPAL/METACARPAL JOINTS Left 05/24/2018 Left thumb CMC arthroplasty with LRTI and MCP pinning of left thumb COLONOSCOPY FLX DX W/COLLJ SPEC WHEN PFRMD 07/17/08, 2012 COLONOSCOPY FLX DX W/COLLJ SPEC WHEN PFRMD 03/28/2019 [facility] CYSTO.PANENDO 02/20/2021 stent removal EGD TRANSORAL BIOPSY SINGLE/MULTIPLE 12/26/08 ESOPHAGOGASTRODUODENOSCOPY TRANSORAL DIAGNOSTIC 03/18/2020 EGD EXCISION OF CYST squamous cell on head LAP, REVISION DEMETRIO FUNDOPLASTY 03/11/2009 hiatal hernia LAPAROSCOPY SURG CHOLECYSTECTOMY 03/11/09 LITHOTRIPSY XTRCORP SHOCK WAVE 1982,12/07/2006, 2011 NEPHROLITHOTOMY REMOVAL STAGE 1 Right 11/28/2006, 2011 (R) ureteroscopic OPEN REPAIR OF ROTATOR CUFF ACUTE Right 12/06/2002 OPEN REPAIR OF ROTATOR CUFF ACUTE Left 08/26/2004 PERIPHERAL NERVE BLOCK (MOD 59) Bilateral 11/01/2016, 03/28/2018 bilateral lumbar facet medial branch nerve block (l4-5, L5-S1) REMOVAL OF HEMORRHOID CLOT 06/2017 TONSILLECTOMY HX Childhood XCAPSL CTRC RMVL INSJ IO LENS PROSTH W/O ECP Bilateral 08/25/2016 Social History Tobacco Use Smoking status: Former Types: Cigarettes Quit date: 06/24/1963 Years since quittin.0 Smokeless tobacco: Never Tobacco comments: quit in his 20's - smoked socially while in college Vaping Use Vaping Use: Never used Substance Use Topics Alcohol use: Yes Comment: 1-2 drinks in A MONTH Drug use: No Request refer to [facility] per pt/family request Nadia Humphreys RN * Telephone Encounter - Suzanne Doll Adm - 06/14/2022 11:10 AM EDT Received [facility] Staff Message from external referring pool Javier Bond is being referred to Unspecified Thoracic Surgeon by MD Guru Arambula E Alie Francisco [address] [facility] [address] Patient diagnosis/Reason for consult: Esophageal diverticulum Referral triage process explained: No Patient will receive a call from Thoracic NPM after triage review with surgeon to discuss any additional testing and/or consults that will be scheduled. Pt will then receive a call from our scheduling office for scheduling. Please call pt at [phone]. Patient was informed consultation could be at [place] or [facility] [place]: No Patient Registration: Registration complete/updated: yes Insurance card(s) scanned in [facility] with in the past year: No Pt's Tumblr is active. Ok to communicate to pt via Tumblr not asked Medical Records: Records in [facility] (internal CC records): Yes Imaging in [facility] (internal [facility] records): Yes Care Everywhere - queried yes, downloaded No Linked Outside Organizations (list): none OSH Records Requested: no Date: N/A Outside Hospital(s) requested records from: none Received: n/a Uploaded: N/A. Waiting on additional records: No. Missing (list): N/A OS Pathology Slides Requested: no Date: N/A Outside Hospital(s) slides requested from: none OS Radiology Imaging Requested: n/a Date: N/A Outside Hospital(s) requested imaging from: no. Imaging will be received via In [facility] already Received: n/a Imaging uploaded: N/A Waiting on additional: N/A. Missing (list): Additional providers added to Care Teams: Yes Additional Notes/Comments: Enct routed to: Yes, Thoracic NPM for triage Suzanne Doll Adm documented in this encounterCh[facility]ic[facility]09-15-2022 Miscellaneous Notes* Telephone Encounter - Francisco Bahena MD - 06/10/2022 1:48 PM EDT Please get me a copy of the cookie swallow study and last office report from Dr. Marroquin. Let his office know patient is calling for referrals to see thoracic surgery and general surgery for issues found by Dr. Marroquin and we have no info regarding this. * Telephone Encounter - Shauna Scott - 06/10/2022 11:17 AM EDT Called PT spoke to him and his . PT states he is wanting referral placed for Thoracic Surgery as he had a Cookie Study done with stating he has Diverticulitis of the Esophagus. Procedure was performed at [facility]. Please Assist and Advise * Telephone Encounter - Yash Monroe MA - 06/10/2022 9:01 AM EDT Please schedule patient with Dr. Matos. Please see consult. Yash Monroe MA documented in this encounterChillicothe Hospital09-14-2022 Miscellaneous Notes* Addendum Note - Francisco Bahena MD - 06/09/2022 8:58 PM EDTAddended by: FRANCISCO BAHENA on: 06/09/2022 08:58 PM Modules accepted: Orders * Telephone Encounter - Francisco Bahena MD - 06/09/2022 8:58 PM EDT Consult order placed to see Dr. Matos * Telephone Encounter - Lynn Cornejo Ma - 06/09/2022 3:09 PM EDT Pt wrote message like this previously on 04/11/22. Notified pt of previous response from PCP. Await pt response, then route to PCP. Lynn Cornejo Ma documented in this encounterChillicothe Hospital09-01-2022 Miscellaneous Notes* Telephone Encounter - Yolanda Cabral LPN - 05/27/2022 12:00 PM EDT Patient has been identified by name and date of : Yes Patient phones for refill(s): Requested Prescriptions Pending Prescriptions Disp Refills hydroCHLOROthiazide (HYDRODIURIL, ESIDRIX) 12.5 mg tablet 30 tablet 2 Sig: Take 1 tablet by mouth once daily. Date of last office visit in primary care: 05/21/22 next apt 10/04/22 Last 2 Encounter Wt Readings: Date: Wt: 05/21/2022 78.9 kg (174 lb) 03/15/2022 78 kg (172 lb) Previous labs/tests for medication: Blood Pressure: BUN (mg/dL) Date Value 03/15/2022 26 09/04/2021 20 Sodium (mmol/L) Date Value 03/15/2022 139 09/04/2021 137 Last 1 Encounter BP Readings: Date: BP: 05/21/2022 110/60 Please advise. Thank you. Yolanda Cabral LPN documented in this encounterChillicothe Hospital08-26-2022 Instructions* Patient Instructions* Cherelle Benavides PA-C - 05/21/2022 12:49 PM EDT Okay to add extra lasix as needed. But please let us know if it becomes consistent or worse. documented in this encounterChillicothe Hospital08-26-2022 History of Present illness Narrative* Cherelle Benavides PA-C - 05/21/2022 12:30 PM EDT Chief Complaint Patient presents with: ER F/U HPI Javier Bond is a 81 year old male who presents here today for ER Follow Up.. Patient was seen at [facility] ER on 05/03 due to increased swelling in his feet. Workup overall was negative. His US was normal except for possible nix's cyst on the R side. They d/c him home with instructions to increase lasix to 40mg x5 days. He does feel like has improved. Not nearly as swollen. Past medical history, appointments, medications, allergies reviewed. 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 Chronic constipation 12/03/2020 Compression fracture of third lumbar vertebra (HCC) 11/05/2019 Degenerative lumbar spinal stenosis 12/15/2020 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/28/2017 Elevated blood sugar 08/31/2021 Episodic cluster headache, not intractable 09/09/2015 Essential hypertension, benign Family history of malignant neoplasm of gastrointestinal tract GERD (gastroesophageal reflux disease) 03/25/2009 History of compression fracture of spine 11/05/2019 Hypercalciuria, idiopathic 02/11/2020 Hypertrophy of prostate without urinary obstruction and other lower urinary tract symptoms (LUTS) Ilioinguinal neuralgia of left side 09/27/2019 Internal hemorrhoids without mention of complication Lumbar degenerative disc disease 09/14/2012 Lumbar radiculopathy 07/03/2020 Medicare annual wellness visit, subsequent 09/10/2021 Medicare Part B: Not able to find Last done: 09/10/2021 Nephrolithiasis 07/04/2007 Osteoporosis 01/28/2020 Other specified anemias 03/16/2022 Acute blood loss 11/2020 (post surgery) Primary osteoarthritis of both first carpometacarpal joints 05/04/2018 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 09/09/2015 Rosacea 09/09/2015 S/P lumbar spinal fusion 12/15/2020 Sepsis due to Gram-negative organism with septic shock (HCC) 12/17/2020 Proteus mirabilis UTI Situational anxiety 06/27/2019 Situational depression 02/27/2021 Spondylosis of lumbar region without myelopathy or radiculopathy 03/10/2018 Thyroid nodule 12/03/[address] Zacarias Previous Surgical History PAST SURGICAL HISTORY Procedure Laterality Date ARTHRP INTERPOS INTERCARPAL/METACARPAL JOINTS Left 05/24/2018 Left thumb CMC arthroplasty with LRTI and MCP pinning of left thumb COLONOSCOPY FLX DX W/COLLJ SPEC WHEN PFRMD 07/17/08, 2012 COLONOSCOPY FLX DX W/COLLJ SPEC WHEN PFRMD 03/28/2019 [facility] CYSTO.PANENDO 02/20/2021 stent removal EGD TRANSORAL BIOPSY SINGLE/MULTIPLE 12/26/08 ESOPHAGOGASTRODUODENOSCOPY TRANSORAL DIAGNOSTIC 03/18/2020 EGD EXCISION OF CYST squamous cell on head LAP, REVISION DEMETRIO FUNDOPLASTY 03/11/2009 hiatal hernia LAPAROSCOPY SURG CHOLECYSTECTOMY 03/11/09 LITHOTRIPSY XTRCORP SHOCK WAVE 1982,12/07/2006, 2011 NEPHROLITHOTOMY REMOVAL STAGE 1 Right 11/28/2006, 2011 (R) ureteroscopic OPEN REPAIR OF ROTATOR CUFF ACUTE Right 12/06/2002 OPEN REPAIR OF ROTATOR CUFF ACUTE Left 08/26/2004 PERIPHERAL NERVE BLOCK (MOD 59) Bilateral 11/01/2016, 03/28/2018 bilateral lumbar facet medial branch nerve block (l4-5, L5-S1) REMOVAL OF HEMORRHOID CLOT 06/2017 TONSILLECTOMY HX Childhood XCAPSL CTRC RMVL INSJ IO LENS PROSTH W/O ECP Bilateral 08/25/2016 Family History FAMILY HISTORY Problem Relation Age of Onset Cancer Mother lung Cancer Father colon Cancer Brother lymphoma Patient Allergies ALLERGIES Allergen Reactions Contrast Dye Hives Finacea [Azelaic Ac* Rash Bactrim [Sulfametho* Unknown Bextra [Valdecoxib] Unknown Cardura [Doxazosin * Unknown Ciprofloxacin Unknown Cytotec [Misoprosto* Unknown Fosamax [Alendronat* Vomiting heartburn, vomiting Gabapentin Mental Status Change Keflex [Cephalexin] Rash Ketoconazole Unknown Levofloxacin Other: See Comments Pseudomonas Mobic [Meloxicam] Unknown Nitrofurantoin Other: See Comments Per , "he didn't feel well" - unsure of reaction Nsaids (Non-Steroid* Unknown GI UPSET Relafen [Nabumetone] Unknown Terbinafine GI Upset Current Medications Current Outpatient Medications on File Prior to Visit Medication Sig furosemide (LASIX) 20 mg tablet Take 1 tablet by mouth once daily. tamsulosin (FLOMAX) 0.4 mg Take 1 capsule by mouth once daily. traZODone (DESYREL) 50 mg tablet Take 0.5 tablets by mouth once daily. atorvastatin (LIPITOR) 10 mg tablet Take 1 tablet by mouth daily at bedtime. For cholesterol. quinapril (ACCUPRIL) 5 mg tablet Take 1 tablet by mouth once daily. hydroCHLOROthiazide (HYDRODIURIL, ESIDRIX) 12.5 mg tablet Take 1 tablet by mouth once daily. doxycycline 20 mg tablet Take 20 mg by mouth twice daily. finasteride (PROSCAR) 5 mg tablet Take 1 tablet by mouth once daily. OTC PRODUCT Taking stool softner 250 mg daily multivit-min/iron/folic acid/K (ADULTS MULTIVITAMIN ORAL) Take by mouth as directed. lactobacillus combination no.8 (ADULT PROBIOTIC ORAL) Take by mouth as directed. acetaminophen (TYLENOL) 500 mg tablet Take 2 tablets by mouth every 8 hours as needed for Pain or Fever. aspirin 81 mg chewable tablet Take 1 tablet by mouth once daily. calcium carbonate 600 mg-cholecalciferol 400 units (CALCIUM 600 + D) 600 mg(1,500mg) -400 unit tab Take 1 tablet by mouth twice daily. metroNIDAZOLE 0.75 % cream Apply 1 application to affected area twice daily. MEDICAL SUPPLY [employer] for right lower extremity. (Patient not taking: Reported on 03/15/2022 ) melatonin 3 mg tablet Take 1 tablet by mouth daily at bedtime. (Patient not taking: Reported on 03/15/2022 ) No current facility-administered medications on file prior to visit. Social History Social History Tobacco Use Smoking status: Former Types: Cigarettes Quit date: 06/24/1963 Years since quittin.9 Smokeless tobacco: Never Tobacco comments: quit in his 20's - smoked socially while in college Vaping Use Vaping Use: Never used Substance Use Topics Alcohol use: Yes Comment: 1-2 drinks in A MONTH Drug use: No Review of Symptoms REVIEW OF SYSTEMS See hpi EXAM: BP 110/60 (BP Site: Right Arm, BP Position: Sitting, BP Cuff Size: Large Adult) Pulse 80 Temp 36.9 C (98.5 F) Resp 18 Wt 78.9 kg (174 lb) BMI 23.60 kg/m General Appearance: Well appearing, alert, in no acute distress, well-hydrated, well nourished.. Extremities: 1+ edema b/l in feet and ankles. Minimal in shins. No deformities, skin discoloration,clubbing or cyanosis. Good capillary refill. . Health Maintenance List ADVANCE DIRECTIVE DISCUSSION Never done INFLUENZA(1) due on 05/27/2022 ANNUAL PCP TEAM CHRONIC DISEASE VISIT due on 03/15/2023 BP CONTROLLED (<130/80) due on 03/15/2023 DIABETES SCREEN due on 03/15/2025 DTAP,TDAP,TD(4 - Td or Tdap) due on 03/13/2028 SHINGRIX VACCINE Completed COVID-19 VACCINE Completed PNEUMOCOCCAL: 65+ Completed Data reviewed ASSESSMENT/PLAN: 1. Peripheral edema - ICD9: 782.3, ICD10: R60.9 Continue lasix at 20mg per day. Okay to increase to 40mg on occasion but advised patient to let us know if it becomes consistent orneeded frequently. Advised to keep legs elevated and to use wrap/compression stockings as able. Cherelle Benavides PA-C documented in this encounterChillicothe Hospital08-24-2022 Miscellaneous Notes* Telephone Encounter - Iván Posey LPN - 05/19/2022 9:55 AM EDT Patient calling has not read my chart message from PCP. Went over notes with understanding. Patientwill check with pharmacy since they did not have the rx when he spoke to them earlier. Aware rx wassent to pharmacy. * Telephone Encounter - Francisco Bahena MD - 05/19/2022 8:55 AM EDT The following approved medication requests have been transmitted electronically. Requested Prescriptions Signed Prescriptions Disp Refills furosemide (LASIX) 20 mg tablet 90 tablet 1 Sig: Take 1 tablet by mouth once daily. Francisco Bahena MD * Telephone Encounter - Lynn Cornejo Ma - 05/19/2022 8:20 AM EDT Please see pt message and advise. Last Rx given was for #90 on 04/27. Update pt via [employer]. Lynn Cornejo Ma documented in this encounterChillicothe Hospital07-08-2022 Miscellaneous Notes* Telephone Encounter - Francisco Bahena MD - 04/02/2022 5:05 PM EDT I don't have any info to provide. * Telephone Encounter - Patrice Hartman RN - 04/02/2022 4:41 PM EDT Pts called in and reports she is trying to fill out a form for reimbursement for the stair lift Cherelle FERGUSON put in orders for. Pt states she was put through to billing and they said she would need to talk to provider. She states she needs a TIN # to put on the form. I sent her to Yumiko De Jesus in finance to see if she could help her. Please call and advise. documented in this encounterChillicothe Hospital07-06-2022 Miscellaneous Notes* Telephone Encounter - Francisco Bahena MD - 03/31/2022 9:09 AM EDT The following approved medication requests have been transmitted electronically. Signed Prescriptions Disp Refills traZODone (DESYREL) 50 mg tablet 45 tablet 1 Sig: Take 0.5 tablets by mouth once daily. LOBO: No Authorizing Provider: FRANCISCO BAHENA MD * Telephone Encounter - Clari Scott LPN - 03/30/2022 3:21 PM EDT Patient phones requesting refills as follows: Pending Prescriptions Disp Refills TRAZODONE 50 MG TABLET 45 tablet 1 Sig: Take 0.5 tablets by mouth once daily. LOBO: No CHRISTA-03/15/22 Labs-03/15/22 NOV-10/04/22 Med filled 07/08/21 Please review and advise. Clari Scott LPN documented in this encounterChillicothe Hospital07-06-2022 Miscellaneous Notes* Telephone Encounter - Francisco Bahena MD - 03/31/2022 9:08 AM EDT The following approved medication requests have been transmitted electronically. Signed Prescriptions Disp Refills tamsulosin (FLOMAX) 0.4 mg 90 capsule 1 Sig: Take 1 capsule by mouth once daily. LOBO: No Authorizing Provider: FRANCISCO BAHENA MD * Telephone Encounter - Ronan Jean LPN - 03/30/2022 2:45 PM EDT Last refill 06/03/21 Qty: 90 with 1 refill CHRISTA 03/15/22 NOV 10/04/22 Ronan Jean LPN documented in this encounterChillicothe Hospital06-01-2022 Miscellaneous Notes* Telephone Encounter - Francisco Bahena MD - 02/24/2022 8:14 AM EDT The following approved medication requests have been transmitted electronically. Signed Prescriptions Disp Refills quinapril (ACCUPRIL) 5 mg tablet 90 tablet 1 Sig: Take 1 tablet by mouth once daily. LOBO: No Francisco Bahena MD * Telephone Encounter - Emily Schmidt Ma - 02/23/2022 3:39 PM EDT Patient last visit with PCP 01/01/22 Follow up appointment scheduled 03/15/22 Emily Schmidt Ma documented in this encounterChillicothe Hospital05-10-2022 Miscellaneous Notes* Telephone Encounter - Francisco Bahena MD - 02/02/2022 1:58 PM EDT The following approved medication requests have been transmitted electronically. Signed Prescriptions Disp Refills hydroCHLOROthiazide (HYDRODIURIL, ESIDRIX) 12.5 mg tablet 30 tablet 2 Sig: Take 1 tablet by mouth once daily. LOBO: No Francisco Bahena MD * Telephone Encounter - Any Lainez LPN - 02/02/2022 11:52 AM EDT Patient phones requesting refills as follows: Pending Prescriptions Disp Refills HYDROCHLOROTHIAZIDE 12.5 MG TABLET 30 tablet 2 Sig: Take 1 tablet by mouth once daily. LOBO: No Please send to [facility] Margarita CHRISTA 01/01/22 NOV 03/15/22 Please review and advise. Any Lainez LPN documented in this encounterChillicothe Hospital05-06-2022 History of Present illness Narrative* Angela Harry PA-C - 01/29/2022 1:31 PM EDT Images from the original note were not included. Chief complaint: Kidney stones Javier Bond is a 81 year old male who presents today for kidney stone management and prevention counseling. Interval hx 03/06/21 Previous hx of stones. 1982 ESWL 2006 URS and ESWL 2011 ESWL and URS 02/02/21. Underwent b/l URS, LL and stent placement with Dr. Thompson. Stone analyses - Bladder stone: 100% Calcium Phosphate - Left kidney: 50% Calcium Phosphate 30% Calcium Oxalate Dihydrate 20% Calcium Oxalate Monohydrate - Right kidney: 80% Calcium Oxalate Dihydrate 20% Minor Components Is being referred to Dr. Coles to assess bladder function/emptying. Almanza catheter currently in place. Family hx: no stones Raisin Bran, breads, fruits. Would like to restart probiotic. Interval hx 05/15/21 Patient returns to clinic having completed 24-hour urine collection and metabolic workup for stone prevention. His mobility is improving and catheter has since been removed. He continues to urinate frequently. Upon mention of possible TURP, patient and are confused and would like to meet with Dr. Coles sooner than July to discuss further. Plan was: - Emphasis on increasing fluid intake and increasing dietary citrus - Will reach out to Dr. Coles concerning prostate-related concerns Interval hx 01/29/22 Patient returns to clinic having completed 24-hour urine collection. Doing well on citrus increase.Stones stable on imaging. Saw Drs. Coles & Sonia in interim, with plan of - No intervention at this time - UTI is asymptomatic and PVR is negative - He may need intervention int he future and Video UDS should be considered prior to surgical intervention - Patient does have evidence of chronic bladder obstruction and remodeling but is currently asymptomatic. Will defer any procedural/surgical intervention until active issues arise - Rec continuing adequate hydration, frequent urination and constipation prevention The increased frequency and urgency of urination is becoming more persistent and problematic. Getting up in the night about 3 times. We discussed VUDS but patient feels this is currently manageable for him after long discussion with him and . 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 Chronic constipation 12/03/2020 Compression fracture of third lumbar vertebra (HCC) 11/05/2019 Degenerative lumbar spinal stenosis 12/15/2020 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/28/2017 Elevated blood sugar 08/31/2021 Episodic cluster headache, not intractable 09/09/2015 Essential hypertension, benign Family history of malignant neoplasm of gastrointestinal tract GERD (gastroesophageal reflux disease) 03/25/2009 History of compression fracture of spine 11/05/2019 Hypercalciuria, idiopathic 02/11/2020 Hypertrophy of prostate without urinary obstruction and other lower urinary tract symptoms (LUTS) Ilioinguinal neuralgia of left side 09/27/2019 Internal hemorrhoids without mention of complication Lumbar degenerative disc disease 09/14/2012 Lumbar radiculopathy 07/03/2020 Medicare annual wellness visit, subsequent 09/10/2021 Medicare Part B: Not able to find Last done: 09/10/2021 Nephrolithiasis 07/04/2007 Osteoporosis 01/28/2020 Primary osteoarthritis of both first carpometacarpal joints 05/04/2018 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 09/09/2015 Rosacea 09/09/2015 S/P lumbar spinal fusion 12/15/2020 Sepsis due to Gram-negative organism with septic shock (HCC) 12/17/2020 Proteus mirabilis UTI Situational anxiety 06/27/2019 Situational depression 02/27/2021 Spondylosis of lumbar region without myelopathy or radiculopathy 03/10/2018 Thyroid nodule 12/03/[address] 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 LAP, REVISION DEMETRIO FUNDOPLASTY 03/11/2009 hiatal hernia LAPAROSCOPY SURG CHOLECYSTECTOMY 03/11/09 LITHOTRIPSY XTRCORP SHOCK WAVE 1982,12/07/2006, 2011 NEPHROLITHOTOMY REMOVAL STAGE 1 Right 11/28/2006, 2011 (R) ureteroscopic OPEN REPAIR OF ROTATOR CUFF ACUTE Right 12/06/2002 OPEN REPAIR OF ROTATOR CUFF ACUTE Left 08/26/2004 PERIPHERAL NERVE BLOCK (MOD 59) Bilateral 11/01/2016, 03/28/2018 bilateral lumbar facet medial branch nerve block (l4-5, L5-S1) REMOVAL OF HEMORRHOID CLOT 06/2017 TONSILLECTOMY HX Childhood XCAPSL CTRC RMVL INSJ IO LENS PROSTH W/O ECP Bilateral 08/25/2016 Family History Problem Relation Age of Onset Cancer Mother lung Cancer Father colon Cancer Brother lymphoma Social History Tobacco Use Smoking status: Former Smoker Quit date: 06/24/1963 Years since quittin.6 Smokeless tobacco: Never Used Tobacco comment: quit in his 20's - smoked socially while in college Vaping Use Vaping Use: Never used Substance Use Topics Alcohol use: Yes Comment: 1-2 drinks in A MONTH Drug use: No Current Outpatient Medications on File Prior to Visit Medication Sig furosemide (LASIX) 20 mg tablet Take 1 tablet by mouth once daily. doxycycline 20 mg tablet Take 20 mg by mouth twice daily. predniSONE (DELTASONE) 50 mg Take one tab by mouth [address], take next dose [address] and take last dose [address] hydroCHLOROthiazide (HYDRODIURIL, ESIDRIX) 12.5 mg tablet Take 1 tablet by mouth once daily. finasteride (PROSCAR) 5 mg tablet Take 1 tablet by mouth once daily. traZODone (DESYREL) 50 mg tablet Take 0.5 tablets by mouth once daily. OTC PRODUCT Taking stool softner 250 mg daily multivit-min/iron/folic acid/K (ADULTS MULTIVITAMIN ORAL) Take by mouth as directed. lactobacillus combination no.8 (ADULT PROBIOTIC ORAL) Take by mouth as directed. tamsulosin (FLOMAX) 0.4 mg Take 1 capsule by mouth once daily. quinapril (ACCUPRIL) 5 mg tablet Take 1 tablet by mouth once daily. MEDICAL SUPPLY KA for right lower extremity. acetaminophen (TYLENOL) 500 mg tablet Take 2 tablets by mouth every 8 hours as needed for Pain or Fever. aspirin 81 mg chewable tablet Take 1 tablet by mouth once daily. melatonin 3 mg tablet Take 1 tablet by mouth daily at bedtime. calcium carbonate 600 mg-cholecalciferol 400 units (CALCIUM 600 + D) 600 mg(1,500mg) -400 unit tab Take 1 tablet by mouth twice daily. metroNIDAZOLE 0.75 % cream Apply 1 application to affected area twice daily. No current facility-administered medications on file prior to visit. ALLERGIES Allergen Reactions Contrast Dye Hives Finacea [Azelaic Ac* Rash Bactrim [Sulfametho* Unknown Bextra [Valdecoxib] Unknown Cardura [Doxazosin * Unknown Ciprofloxacin Unknown Cytotec [Misoprosto* Unknown Fosamax [Alendronat* Vomiting heartburn, vomiting Gabapentin Mental Status Change Keflex [Cephalexin] Rash Ketoconazole Unknown Levofloxacin Other: See Comments Pseudomonas Mobic [Meloxicam] Unknown Nitrofurantoin Other: See Comments Per , "he didn't feel well" - unsure of reaction Nsaids (Non-Steroid* Unknown GI UPSET Relafen [Nabumetone] Unknown Terbinafine GI Upset Appointment on 01/01/2022 Component Date Value Ref Range Status Creatinine 01/01/2022 0.86 0.73 - 1.22 mg/dL Final Estimated Glomerular Filtration Ra* 01/01/2022 88 >=60 mL/min/1.73m Final Estimated Glomerular Filtration Rate (eGFR) is calculated using the 2020 CKD-EPI creatinine equation. This equation utilizes serum creatinine, sex, and age as parameters. The creatinine assay has traceable calibration to isotope dilution- mass spectrometry. Refer to KDIGO guidelines for clinical interpretation. In patients with unstable renal function, e.g. those with acute kidney injury, the eGFRmay not accurately reflect actual GFR. Urinalysis: Component Latest Ref Rng & Units 01/29/2022 GLUCOSE UA (POCT) Negative mg/dL Negative BILIRUBIN UA (POCT) Negative Negative KETONE UA (POCT) Negative mg/dL Negative SPECIFIC GRAVITY UA (POCT) 1.005 - 1.030 1.015 HEMOGLOBIN/BLOOD UA (POCT) Negative Negative PH UA (POCT) 4.5 - 8.0 6.5 PROTEIN UA (POCT) Negative mg/dL Negative UROBILINOGEN UA (POCT) Normal E.U./dL 0.2 NITRITE UA (POCT) Negative Negative LEUKOCYTES UA (POCT) Negative Moderate (A) COLOR UA (POCT) Yellow CLARITY UA (POCT) Slightly Cloudy Images: CT 01/08/22: Kidneys: Subcentimeter lesions that are too small to characterize but likely benign. The kidneys enhance symmetrically. There is no hydronephrosis. Multiple left renal calculi measuring up to 6 mm. Stone Panel/ [facility]: Assessment/Plan: N20.0 Nephrolithiasis (primary encounter diagnosis) Z13.89 Screening for genitourinary condition N40.1, N13.8 BPH with obstruction/lower urinary tract symptoms - Emphasis on increasing fluid intake and citrus - Discussed video urodynamics as recommended by Dr. Coles before proceeding with surgical intervention. Patient would like to defer at this time but will reach out if he decides otherwise. - New imaging and Litholink in about 1 year for stone monitoring Reviewed recent 24 hour urine study and discussed strategies for stone prevention. Low urine volume - Recommend increasing your fluid intake to 2.5-3 L/day or 80- 100 fluid oz/day. Not only increase fluids during the day but also drink 1-2 glasses of water before bed, get up at least once through the night to urinate, and then drink another glass of water before returning to sleep. 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 Adding more fruits & vegetables to your diet; in particular citrus fruits like alireza, limes, oranges, melons and tomatoes. General stone prevention guidelines: Fluid intake - #1 reason why people form stones - not enough fluid! Recommend increasing water/fluid intake (2.5-3 L/day or 80-100 fluid oz/day), including nighttime hydration. We recommend emptying your bladder and drinking 1-2 glasses of water prior to bed, then getting up at least once during the night to empty your bladder again and drinking 1 more glass of water before returning to bed. All fluids count but water is best. [place]land intake - Recommend increasing dietary citrate intake. Adding more fruits & vegetables toyour diet; in particular citrus fruits (alireza/limes/lemonade/melons/tomatoes). One can add 4 oz oflemon juice diluted in 32 oz of water daily to start. If diet changes are too difficult we can presc ribe a medication, potassium citrate, that can help increase your citrate levels. Sodium intake - Recommend a low sodium diet <2000mg/d. Read food labels, choose low sodium options, avoid canned, frozen or boxed meals, eat more fresh foods, and possibly add a fish oil supplement daily (2000mg/d) Calcium intake - Recommend 2-3 servings of calcium per day. Not advisable for stone patients to restrict calcium intake as it is very important for good bone, muscle, and tissue health. RTC in 12 months w/ new LL, US, and KUB. I spent a total of 30 minutes on the date of the service which included preparing to see the patient, [id number] patient care, completing clinical documentation, obtaining and/or reviewing separately obtained history, counseling and educating the patient/family/caregiver, ordering medications, medina ts, or procedures and communicating results to the patient/family/caregiver. Angela Harry PA-C documented in this encounterCh[facility]04-26-[facility] History of Present illness Narrative* Aris Baeza MD - 01/19/2022 4:23 PM EDT Javier is now a year out from surgery. He continues to make significant improvements in his pain and level of function. He is happy with his current clinical status. He is still using a walker for long distances. On clinical exam he stands in neutral sagittal and coronal balance. Has a normal neurologic exam. He will continue with activities as tolerated. I will see him back in 6 months time forclinical reassessment. Aris Baeza MD * Aris Baeza MD - 01/19/2022 2:44 PM EDT SPINE SURGERY FOLLOW UP SERVICE DATE: 01/19/2022 SURGERY DATE: 12/12/2020 Javier Bond is seen for 12 month post operative follow up. Overall, he is happy with his clinical course and his overall outcome from surgery. He denies any significant pain. His minor issue is getting back to driving and he is slowly making progress using his feet with slow improvement in hisfeet numbness. Overall he is doing well. PAIN EVALUATION No data found in the last 1 encounters. ANTIPLATELET OR ANTICOAGULATION STATUS: No Patient Entered Questionnaires Spine Questions 05/14/2021 08/12/2021 01/16/2022 Pain Location: Lower back Lower back Lower back Pain Duration: - 1 to 5 years 1 to 5 years Pain over last 6 months: - Every day or nearly every day in the past 6 months Less than half the days in the past 6 months Symptoms from neck/cervical spine: Yes Yes Yes Employment Status: Retired Retired Retired Involved in law suit/legal claim: No - No Spine Red Flags 07/28/2020 Any type of cancer: No Unexplained fever: No Bowel or bladder disfunction: No Unintentional weight loss: No Neck Questionnaires 05/14/2021 08/12/2021 01/16/2022 Benzel Modified LISA Score Incomplete Incomplete 13 (A lower score indicates increased pain and issues.) Low Back Pain Questionnaires 07/09/2020 STarT Risk Score 5 (High risk for prolonged disability) STarT Distress Score 4 STarT Total Score 8 SANDEEP Score 53.33 (Severe disability) PROMIS Score Percentiles Physical Health 05/14/2021 08/12/2021 01/16/2022 Physical Function Percentile - 7 4 Sleep Percentile 54 82 73 Fatigue Percentile - 24* 62 Pain Interference Percentile 12 21* 24* PROMIS SOCIAL ROLE SCORE 05/11/2021 08/12/2021 01/16/2022 Social Role Satisfaction Percentile 58 31 34 PROMIS Global Health Scale 12/28/2021 12/28/2021 12/31/2021 Physical Health Percentile 7 7 7 Mental Health Percentile 26* 26* 26* Percentiles provide an indication of how the patient's score ranks in relation to the general population. Higher percentile rankings indicate better function/quality of life. 50th percentile is the average of the general population and indicates half of respondents had a worse score. Depression Screening: PHQ-9 05/14/2021 08/12/2021 01/16/2022 Score 0 0 0 PHQ-9 Self-harm Question 05/14/2021 08/12/2021 01/16/2022 Thoughts that you would be better off , or of hurting yourself in some way 0 0 0 PHQ-9 Self-Harm (Item 9) response options: 0 Not at all 1 Several days 2 More than half the days 3 Nearly every day PHQ-9 Levels: 0-4 No to mild depression 5-9 Mild depression 10-14 Moderate depression 15-19 Moderately severe depression 20-27 Severe depression PHYSICAL EXAM: There were no vitals taken for this visit. GENERAL APPEARANCE: Well nourished, well developed, and no apparent distress. NEURO PSYCH: Patient oriented to person, place, and time. Mood pleasant. Benign affect. MUSCULOSKELETAL VISUAL INSPECTION CERVICAL: WNL THORACIC: WNL LUMBAR: WNL MOTOR: 5/5 in all muscle groups. SENSORY: Normal sensory exam GAIT: Normal. REFLEXES: +2 to bilateral U/L extremities. PROPRIOCEPTION: Normal. LONG TRACT SIGNS: No clonus. No Hoffmans. DATA REVIEW [facility] records independently reviewed ASSESSMENT/PLAN No diagnosis found. 1 year s/p L3-Sacrum PSIF + TLIF Javier Bond will continue with medical management of his/her condition. 1. No Orders Entered Today 2. Follow up: in 6 months with preclinic standing xrays. I reviewed the information obtained and documented by the resident. I examined the patient and evaluated all available films and pertinent documents. We discussed the case and I agree with the plans as outlined in this note. SIGNATURE: Aris Baeza MD PATIENT NAME: Javier Bond DATE: January 19, 2022 TIME: 2:44 PM PAGER: documented in this encounterChillic[facility]04-19-2022 Miscellaneous Notes* Telephone Encounter - Francisco Bahena MD - 01/12/2022 10:25 AM EDT Noted. * Telephone Encounter - Any Coello LPN - 01/12/2022 8:58 AM EDT Pt returned call & was given results. When pt was asked how he is doing he stated he would likea minute to think about it & asked if he could send a [employer] message to provider with answer. Pt will be sending message today. Any Coello LPN * Telephone Encounter - Yash Monroe MA - 01/12/2022 8:02 AM EDT Left message for patient to return call. See how patient is feeling? Any more abdomen pain? Yash Monroe MA * Telephone Encounter - Francisco Bahena MD - 01/11/2022 5:14 PM EDT Let patient know ct abdomen was ok. No masses, infections or hernias. documented in this encounterChillic[facility]04-15-2022 History of Present illness Narrative* Kaylee Bowers Cuevas, RT(R) - 01/08/2022 2:40 PM EDT Radiology Service Progress Note DATE OF SERVICE: January 08, 2022 TIME: 3:29 PM PATIENT IDENTITY VERIFICATION COMPLETED USING TWO (2) STANDARD IDENTIFIERS: Name and Date of confirmed by patient verbally. FALL SCREENING: Has the patient had 2 falls in the last year or 1 fall with injury or currently using an Ambulatory Assistive Device (Walker, Cane, Wheelchair, Crutches, etc.)? No PATIENT GENDER DATA: Male PATIENT RELEVANT IMPLANT DATA REVIEWED: Yes ALLERGIES: Reviewed and unchanged CONTRAST ALLERGY: NO. EXAM: CT -CONTRAST INDUCED NEPHROPATHY RISK FACTORS: Patient age > 60 years CREATININE: Creatinine Date Value Ref Range Status 01/01/2022 0.86 0.73 - 1.22 mg/dL Final 09/04/2021 0.91 0.73 - 1.22 mg/dL Final 06/24/2021 1.03 0.73 - 1.22 mg/dL Final Estimated Glomerular Filtration Rate Date Value Ref Range Status 01/01/2022 88 >=60 mL/min/1.73m Final Comment: Estimated Glomerular Filtration Rate (eGFR) is calculated using the 2020 CKD-EPI creatinine equation. This equation utilizes serum creatinine, sex, and age as parameters. The creatinine assay has traceable calibration to isotope dilution- mass spectrometry. Refer to KDIGO guidelines for clinical interpretation. In patients with unstable renal function, e.g. those with acute kidney injury, the eGFRmay not accurately reflect actual GFR. eGFR- Date Value Ref Range Status 09/04/2021 >60 Final P.O.C.T. RESULTS: POC done: Yes, See Lab Tab January 08, 2022 TREATMENT: N/A PERIPHERAL IV DATA: Ambulatory: A peripheral IV was started in the Left antecubital site with a Angio cath: 22 gauge. RADIOLOGY DEPARTMENT: CT; Exam(s) Completed: Abdomen/Pelvis SIGNATURE: RT Nando(R) PATIENT NAME: Javier Bond DATE: January 08, 2022 TIME: 3:29 PM documented in this encounterChill[facility]04-08-2022 History of Present illness Narrative* Faby Bruner RT(Aris) - 01/01/2022 4:50 PM EDT Radiology Service Progress Note PATIENT NAME: Javier Bond DATE OF SERVICE: January 01, 2022 TIME: 5:00 PM PATIENT IDENTITY VERIFICATION COMPLETED USING TWO (2) IDENTIFIERS: Name and Date of confirmedby patient verbally. FALL SCREENING: Has the patient had 2 falls in the last year or 1 fall with injury or currently using an Ambulatory Assistive Device (Walker, Cane, Wheelchair, Crutches, etc.)? Yes, Patient High Riskfor Falls What interventions were put in place to prevent falls during this visit? Increased Observations by Caregivers PATIENT GENDER DATA: Male PATIENT RELEVANT IMPLANT DATA REVIEWED: Yes RADIOLOGY DEPARTMENT: General X-ray: Exam(s) Completed: Pelvis X-Ray: Pelvis General AP PERIPHERAL IV DATA: Not applicable SIGNED BY: RT Mallory(Aris) January 01, 2022 5:00 PM documented in this encounterChillic[facility]04-04-2022 Miscellaneous Notes* Telephone Encounter - Ronan Jean LPN - 12/28/2021 8:40 AM EDT Spoke with pt. States abdominal pain has been for several months. He thinks it might be related to the hernia that he had in the past. Pt was scheduled in Dr Bahena's walk in spot 12/30/21. Ronan Jean LPN * Telephone Encounter - Cherelle Benavides PA-C - 12/28/2021 7:36 AM EDT Patient to keep routine visit in February but needs to be seen sooner for this concern. Okay to use 1-2 day hold spots or walk in spots. * Telephone Encounter - Ronan Jean LPN - 12/28/2021 7:14 AM EDT Cherelle, please advise if ok to use a walk in spot for this? Dr Bahena has one and two day holds onWed evening if ok to use. Ronan Jean LPN documented in this encounterChillic[facility]03-24-2021 History of Past illness Narrative* Problem Noted Date Resolved Date Sepsis due to Escherichia coli (E. coli) 021 12/17/2020 Last Assessment & Plan: Assessment: 12/17 patient is tachycardic, hypotensive, lactate elevated, given some pressors and fluid by Amet, Blood culture pending. 12/16 UA and Ucx grow GNB. Started on zosyn. PLAN: - Zosyn - Follow up culture - Keep Map >65, pressors as needed, currently on Levo Hemodynamic instability 12/17/2020 02/28/20 Last Assessment & Plan: Assessment: Likely urosepsis, on levo gtt PLAN: Keep Map >65, pressors as needed, currently on Levo Sepsis due to Gram-negative organism with septic shock 12/17/2020 12/22/2020 Last Assessment & Plan: Assessment: - Proteus identified in blood and urine, bourgeois-sensitive - Showed great improvement over the last 2 days - Now off pressors and extubated. PLAN: - Amikacin re-dosed 12/19. Continue zosyn - CT chest/abdomen/pelvis to assess for potential additional sources of infection was unremarkable. - Follow up C/S - Stress dose steroids Acute postoperative respiratory insufficiency 12/22/2020 Last Assessment & Plan: Assessment: - PTX on 12/18 CXR, s/p 14Fr pigtail. This has been repositioned as needed. - Currently extubated with adequate O2 saturations on room air PLAN: - Monitor respiratory status. - Will assess tpday for Pigtail removal BRITTANY (acute kidney injury) 12/17/20202020 Last Assessment & Plan: Assessment: - Resolving, likely prerenal versus less likely ATN given speed of improvement - Solute clearance appropriate - UOP good volume - New almanza inserted 12/17 PLAN: - Continue resuscitation - Trend CMP Delirium 12/16/2020 12/22/2020 Last Assessment & Plan: Delirium likely 2/2 infection. Geriatrics has been following PLAN: -- continue oxycodone 2.5-5mg every 4 hours as needed for pain (NGT) -- limit narcotic -- treat active infection/supportive care Hypomagnesemia 12/16/2020 12/17/2020 Last Assessment & Plan: Assessment: Hypomagnesemia PLAN: -Magnesium sulfate 2 gm IV x 1. -Monitor: signs, symptoms, disease progression, disease regression. -Evaluate: test results, medication effectiveness, response to treatment. Hypophosphataemia 12/16/2020 12/17/2020 Last Assessment & Plan: Assessment: Hypophosphatemia PLAN: -Sodium phosphate 30 mmol IV x 1. -Monitor: signs, symptoms, disease progression, disease regression. -Evaluate: test results, medication effectiveness, response to treatment. 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 coli) 021 12/17/2020 Last Assessment & Plan: Assessment: 12/17 patient is tachycardic, hypotensive, lactate elevated, given some pressors and fluid by Amet, Blood culture pending. 12/16 UA and Ucx grow GNB. Started on zosyn. PLAN: - Zosyn - Follow up culture - Keep Map >65, pressors as needed, currently on Levo Hemodynamic instability 12/17/2020 02/28/20 Last Assessment & Plan: Assessment: Likely urosepsis, on levo gtt PLAN: Keep Map >65, pressors as needed, currently on Levo Sepsis due to Gram-negative organism with septic shock 12/17/2020 12/22/2020 Last Assessment & Plan: Assessment: - Proteus identified in blood and urine, bourgeois-sensitive - Showed great improvement over the last 2 days - Now off pressors and extubated. PLAN: - Amikacin re-dosed 12/19. Continue zosyn - CT chest/abdomen/pelvis to assess for potential additional sources of infection was unremarkable. - Follow up C/S - Stress dose steroids Acute postoperative respiratory insufficiency 12/22/2020 Last Assessment & Plan: Assessment: - PTX on 12/18 CXR, s/p 14Fr pigtail. This has been repositioned as needed. - Currently extubated with adequate O2 saturations on room air PLAN: - Monitor respiratory status. - Will assess tpday for Pigtail removal BRITTANY (acute kidney injury) 12/17/20202020 Last Assessment & Plan: Assessment: - Resolving, likely prerenal versus less likely ATN given speed of improvement - Solute clearance appropriate - UOP good volume - New almanza inserted 12/17 PLAN: - Continue resuscitation - Trend CMP Delirium 12/16/2020 12/22/2020 Last Assessment & Plan: Delirium likely 2/2 infection. Geriatrics has been following PLAN: -- continue oxycodone 2.5-5mg every 4 hours as needed for pain (NGT) -- limit narcotic -- treat active infection/supportive care Hypomagnesemia 12/16/2020 12/17/2020 Last Assessment & Plan: Assessment: Hypomagnesemia PLAN: -Magnesium sulfate 2 gm IV x 1. -Monitor: signs, symptoms, disease progression, disease regression. -Evaluate: test results, medication effectiveness, response to treatment. Hypophosphataemia 12/16/2020 12/17/2020 Last Assessment & Plan: Assessment: Hypophosphatemia PLAN: -Sodium phosphate 30 mmol IV x 1. -Monitor: signs, symptoms, disease progression, disease regression. -Evaluate: test results, medication effectiveness, response to treatment. 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 coli) 021 12/17/2020 Last Assessment & Plan: Assessment: 12/17 patient is tachycardic, hypotensive, lactate elevated, given some pressors and fluid by Amet, Blood culture pending. 12/16 UA and Ucx grow GNB. Started on zosyn. PLAN: - Zosyn - Follow up culture - Keep Map >65, pressors as needed, currently on Levo Hemodynamic instability 12/17/2020 02/28/20 Last Assessment & Plan: Assessment: Likely urosepsis, on levo gtt PLAN: Keep Map >65, pressors as needed, currently on Levo Sepsis due to Gram-negative organism with septic shock 12/17/2020 12/22/2020 Last Assessment & Plan: Assessment: - Proteus identified in blood and urine, bourgeois-sensitive - Showed great improvement over the last 2 days - Now off pressors and extubated. PLAN: - Amikacin re-dosed 12/19. Continue zosyn - CT chest/abdomen/pelvis to assess for potential additional sources of infection was unremarkable. - Follow up C/S - Stress dose steroids Acute postoperative respiratory insufficiency 12/22/2020 Last Assessment & Plan: Assessment: - PTX on 12/18 CXR, s/p 14Fr pigtail. This has been repositioned as needed. - Currently extubated with adequate O2 saturations on room air PLAN: - Monitor respiratory status. - Will assess tpday for Pigtail removal BRITTANY (acute kidney injury) 12/17/20202020 Last Assessment & Plan: Assessment: - Resolving, likely prerenal versus less likely ATN given speed of improvement - Solute clearance appropriate - UOP good volume - New almanza inserted 12/17 PLAN: - Continue resuscitation - Trend CMP Delirium 12/16/2020 12/22/2020 Last Assessment & Plan: Delirium likely 2/2 infection. Geriatrics has been following PLAN: -- continue oxycodone 2.5-5mg every 4 hours as needed for pain (NGT) -- limit narcotic -- treat active infection/supportive care Hypomagnesemia 12/16/2020 12/17/2020 Last Assessment & Plan: Assessment: Hypomagnesemia PLAN: -Magnesium sulfate 2 gm IV x 1. -Monitor: signs, symptoms, disease progression, disease regression. -Evaluate: test results, medication effectiveness, response to treatment. Hypophosphataemia 12/16/2020 12/17/2020 Last Assessment & Plan: Assessment: Hypophosphatemia PLAN: -Sodium phosphate 30 mmol IV x 1. -Monitor: signs, symptoms, disease progression, disease regression. -Evaluate: test results, medication effectiveness, response to treatment. 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 coli) 021 12/17/2020 Last Assessment & Plan: Assessment: 12/17 patient is tachycardic, hypotensive, lactate elevated, given some pressors and fluid by Amet, Blood culture pending. 12/16 UA and Ucx grow GNB. Started on zosyn. PLAN: - Zosyn - Follow up culture - Keep Map >65, pressors as needed, currently on Levo Hemodynamic instability 12/17/2020 02/28/20 Last Assessment & Plan: Assessment: Likely urosepsis, on levo gtt PLAN: Keep Map >65, pressors as needed, currently on Levo Sepsis due to Gram-negative organism with septic shock 12/17/2020 12/22/2020 Last Assessment & Plan: Assessment: - Proteus identified in blood and urine, bourgeois-sensitive - Showed great improvement over the last 2 days - Now off pressors and extubated. PLAN: - Amikacin re-dosed 12/19. Continue zosyn - CT chest/abdomen/pelvis to assess for potential additional sources of infection was unremarkable. - Follow up C/S - Stress dose steroids Acute postoperative respiratory insufficiency 12/22/2020 Last Assessment & Plan: Assessment: - PTX on 12/18 CXR, s/p 14Fr pigtail. This has been repositioned as needed. - Currently extubated with adequate O2 saturations on room air PLAN: - Monitor respiratory status. - Will assess tpday for Pigtail removal BRITTANY (acute kidney injury) 12/17/20202020 Last Assessment & Plan: Assessment: - Resolving, likely prerenal versus less likely ATN given speed of improvement - Solute clearance appropriate - UOP good volume - New almanza inserted 12/17 PLAN: - Continue resuscitation - Trend CMP Delirium 12/16/2020 12/22/2020 Last Assessment & Plan: Delirium likely 2/2 infection. Geriatrics has been following PLAN: -- continue oxycodone 2.5-5mg every 4 hours as needed for pain (NGT) -- limit narcotic -- treat active infection/supportive care Hypomagnesemia 12/16/2020 12/17/2020 Last Assessment & Plan: Assessment: Hypomagnesemia PLAN: -Magnesium sulfate 2 gm IV x 1. -Monitor: signs, symptoms, disease progression, disease regression. -Evaluate: test results, medication effectiveness, response to treatment. Hypophosphataemia 12/16/2020 12/17/2020 Last Assessment & Plan: Assessment: Hypophosphatemia PLAN: -Sodium phosphate 30 mmol IV x 1. -Monitor: signs, symptoms, disease progression, disease regression. -Evaluate: test results, medication effectiveness, response to treatment. 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 coli) 021 12/17/2020 Last Assessment & Plan: Assessment: 12/17 patient is tachycardic, hypotensive, lactate elevated, given some pressors and fluid by Amet, Blood culture pending. 12/16 UA and Ucx grow GNB. Started on zosyn. PLAN: - Zosyn - Follow up culture - Keep Map >65, pressors as needed, currently on Levo Hemodynamic instability 12/17/2020 02/28/20 Last Assessment & Plan: Assessment: Likely urosepsis, on levo gtt PLAN: Keep Map >65, pressors as needed, currently on Levo Sepsis due to Gram-negative organism with septic shock 12/17/2020 12/22/2020 Last Assessment & Plan: Assessment: - Proteus identified in blood and urine, bourgeois-sensitive - Showed great improvement over the last 2 days - Now off pressors and extubated. PLAN: - Amikacin re-dosed 12/19. Continue zosyn - CT chest/abdomen/pelvis to assess for potential additional sources of infection was unremarkable. - Follow up C/S - Stress dose steroids Acute postoperative respiratory insufficiency 12/22/2020 Last Assessment & Plan: Assessment: - PTX on 12/18 CXR, s/p 14Fr pigtail. This has been repositioned as needed. - Currently extubated with adequate O2 saturations on room air PLAN: - Monitor respiratory status. - Will assess tpday for Pigtail removal BRITTANY (acute kidney injury) 12/17/20202020 Last Assessment & Plan: Assessment: - Resolving, likely prerenal versus less likely ATN given speed of improvement - Solute clearance appropriate - UOP good volume - New almanza inserted 12/17 PLAN: - Continue resuscitation - Trend CMP Delirium 12/16/2020 12/22/2020 Last Assessment & Plan: Delirium likely 2/2 infection. Geriatrics has been following PLAN: -- continue oxycodone 2.5-5mg every 4 hours as needed for pain (NGT) -- limit narcotic -- treat active infection/supportive care Hypomagnesemia 12/16/2020 12/17/2020 Last Assessment & Plan: Assessment: Hypomagnesemia PLAN: -Magnesium sulfate 2 gm IV x 1. -Monitor: signs, symptoms, disease progression, disease regression. -Evaluate: test results, medication effectiveness, response to treatment. Hypophosphataemia 12/16/2020 12/17/2020 Last Assessment & Plan: Assessment: Hypophosphatemia PLAN: -Sodium phosphate 30 mmol IV x 1. -Monitor: signs, symptoms, disease progression, disease regression. -Evaluate: test results, medication effectiveness, response to treatment. 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 coli) 021 12/17/2020 Last Assessment & Plan: Assessment: 12/17 patient is tachycardic, hypotensive, lactate elevated, given some pressors and fluid by Amet, Blood culture pending. 12/16 UA and Ucx grow GNB. Started on zosyn. PLAN: - Zosyn - Follow up culture - Keep Map >65, pressors as needed, currently on Levo Hemodynamic instability 12/17/2020 02/28/20 Last Assessment & Plan: Assessment: Likely urosepsis, on levo gtt PLAN: Keep Map >65, pressors as needed, currently on Levo Sepsis due to Gram-negative organism with septic shock 12/17/2020 12/22/2020 Last Assessment & Plan: Assessment: - Proteus identified in blood and urine, bourgeois-sensitive - Showed great improvement over the last 2 days - Now off pressors and extubated. PLAN: - Amikacin re-dosed 12/19. Continue zosyn - CT chest/abdomen/pelvis to assess for potential additional sources of infection was unremarkable. - Follow up C/S - Stress dose steroids Acute postoperative respiratory insufficiency 12/22/2020 Last Assessment & Plan: Assessment: - PTX on 12/18 CXR, s/p 14Fr pigtail. This has been repositioned as needed. - Currently extubated with adequate O2 saturations on room air PLAN: - Monitor respiratory status. - Will assess tpday for Pigtail removal BRITTANY (acute kidney injury) 12/17/20202020 Last Assessment & Plan: Assessment: - Resolving, likely prerenal versus less likely ATN given speed of improvement - Solute clearance appropriate - UOP good volume - New almanza inserted 12/17 PLAN: - Continue resuscitation - Trend CMP Delirium 12/16/2020 12/22/2020 Last Assessment & Plan: Delirium likely 2/2 infection. Geriatrics has been following PLAN: -- continue oxycodone 2.5-5mg every 4 hours as needed for pain (NGT) -- limit narcotic -- treat active infection/supportive care Hypomagnesemia 12/16/2020 12/17/2020 Last Assessment & Plan: Assessment: Hypomagnesemia PLAN: -Magnesium sulfate 2 gm IV x 1. -Monitor: signs, symptoms, disease progression, disease regression. -Evaluate: test results, medication effectiveness, response to treatment. Hypophosphataemia 12/16/2020 12/17/2020 Last Assessment & Plan: Assessment: Hypophosphatemia PLAN: -Sodium phosphate 30 mmol IV x 1. -Monitor: signs, symptoms, disease progression, disease regression. -Evaluate: test results, medication effectiveness, response to treatment. 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 coli) 021 12/17/2020 Last Assessment & Plan: Assessment: 12/17 patient is tachycardic, hypotensive, lactate elevated, given some pressors and fluid by Amet, Blood culture pending. 12/16 UA and Ucx grow GNB. Started on zosyn. PLAN: - Zosyn - Follow up culture - Keep Map >65, pressors as needed, currently on Levo Hemodynamic instability 12/17/2020 02/28/20 Last Assessment & Plan: Assessment: Likely urosepsis, on levo gtt PLAN: Keep Map >65, pressors as needed, currently on Levo Sepsis due to Gram-negative organism with septic shock 12/17/2020 12/22/2020 Last Assessment & Plan: Assessment: - Proteus identified in blood and urine, bourgeois-sensitive - Showed great improvement over the last 2 days - Now off pressors and extubated. PLAN: - Amikacin re-dosed 12/19. Continue zosyn - CT chest/abdomen/pelvis to assess for potential additional sources of infection was unremarkable. - Follow up C/S - Stress dose steroids Acute postoperative respiratory insufficiency 12/22/2020 Last Assessment & Plan: Assessment: - PTX on 12/18 CXR, s/p 14Fr pigtail. This has been repositioned as needed. - Currently extubated with adequate O2 saturations on room air PLAN: - Monitor respiratory status. - Will assess tpday for Pigtail removal BRITTANY (acute kidney injury) 12/17/20202020 Last Assessment & Plan: Assessment: - Resolving, likely prerenal versus less likely ATN given speed of improvement - Solute clearance appropriate - UOP good volume - New almanza inserted 12/17 PLAN: - Continue resuscitation - Trend CMP Delirium 12/16/2020 12/22/2020 Last Assessment & Plan: Delirium likely 2/2 infection. Geriatrics has been following PLAN: -- continue oxycodone 2.5-5mg every 4 hours as needed for pain (NGT) -- limit narcotic -- treat active infection/supportive care Hypomagnesemia 12/16/2020 12/17/2020 Last Assessment & Plan: Assessment: Hypomagnesemia PLAN: -Magnesium sulfate 2 gm IV x 1. -Monitor: signs, symptoms, disease progression, disease regression. -Evaluate: test results, medication effectiveness, response to treatment. Hypophosphataemia 12/16/2020 12/17/2020 Last Assessment & Plan: Assessment: Hypophosphatemia PLAN: -Sodium phosphate 30 mmol IV x 1. -Monitor: signs, symptoms, disease progression, disease regression. -Evaluate: test results, medication effectiveness, response to treatment. 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 coli) 021 12/17/2020 Last Assessment & Plan: Assessment: 12/17 patient is tachycardic, hypotensive, lactate elevated, given some pressors and fluid by Amet, Blood culture pending. 12/16 UA and Ucx grow GNB. Started on zosyn. PLAN: - Zosyn - Follow up culture - Keep Map >65, pressors as needed, currently on Levo Hemodynamic instability 12/17/2020 02/28/20 Last Assessment & Plan: Assessment: Likely urosepsis, on levo gtt PLAN: Keep Map >65, pressors as needed, currently on Levo Sepsis due to Gram-negative organism with septic shock 12/17/2020 12/22/2020 Last Assessment & Plan: Assessment: - Proteus identified in blood and urine, bourgeois-sensitive - Showed great improvement over the last 2 days - Now off pressors and extubated. PLAN: - Amikacin re-dosed 12/19. Continue zosyn - CT chest/abdomen/pelvis to assess for potential additional sources of infection was unremarkable. - Follow up C/S - Stress dose steroids Acute postoperative respiratory insufficiency 12/22/2020 Last Assessment & Plan: Assessment: - PTX on 12/18 CXR, s/p 14Fr pigtail. This has been repositioned as needed. - Currently extubated with adequate O2 saturations on room air PLAN: - Monitor respiratory status. - Will assess tpday for Pigtail removal BRITTANY (acute kidney injury) 12/17/20202020 Last Assessment & Plan: Assessment: - Resolving, likely prerenal versus less likely ATN given speed of improvement - Solute clearance appropriate - UOP good volume - New almanza inserted 12/17 PLAN: - Continue resuscitation - Trend CMP Delirium 12/16/2020 12/22/2020 Last Assessment & Plan: Delirium likely 2/2 infection. Geriatrics has been following PLAN: -- continue oxycodone 2.5-5mg every 4 hours as needed for pain (NGT) -- limit narcotic -- treat active infection/supportive care Hypomagnesemia 12/16/2020 12/17/2020 Last Assessment & Plan: Assessment: Hypomagnesemia PLAN: -Magnesium sulfate 2 gm IV x 1. -Monitor: signs, symptoms, disease progression, disease regression. -Evaluate: test results, medication effectiveness, response to treatment. Hypophosphataemia 12/16/2020 12/17/2020 Last Assessment & Plan: Assessment: Hypophosphatemia PLAN: -Sodium phosphate 30 mmol IV x 1. -Monitor: signs, symptoms, disease progression, disease regression. -Evaluate: test results, medication effectiveness, response to treatment. 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 coli) 021 12/17/2020 Last Assessment & Plan: Assessment: 12/17 patient is tachycardic, hypotensive, lactate elevated, given some pressors and fluid by Amet, Blood culture pending. 12/16 UA and Ucx grow GNB. Started on zosyn. PLAN: - Zosyn - Follow up culture - Keep Map >65, pressors as needed, currently on Levo Hemodynamic instability 12/17/2020 02/28/20 Last Assessment & Plan: Assessment: Likely urosepsis, on levo gtt PLAN: Keep Map >65, pressors as needed, currently on Levo Sepsis due to Gram-negative organism with septic shock 12/17/2020 12/22/2020 Last Assessment & Plan: Assessment: - Proteus identified in blood and urine, bourgeois-sensitive - Showed great improvement over the last 2 days - Now off pressors and extubated. PLAN: - Amikacin re-dosed 12/19. Continue zosyn - CT chest/abdomen/pelvis to assess for potential additional sources of infection was unremarkable. - Follow up C/S - Stress dose steroids Acute postoperative respiratory insufficiency 12/22/2020 Last Assessment & Plan: Assessment: - PTX on 12/18 CXR, s/p 14Fr pigtail. This has been repositioned as needed. - Currently extubated with adequate O2 saturations on room air PLAN: - Monitor respiratory status. - Will assess tpday for Pigtail removal BRITTANY (acute kidney injury) 12/17/20202020 Last Assessment & Plan: Assessment: - Resolving, likely prerenal versus less likely ATN given speed of improvement - Solute clearance appropriate - UOP good volume - New almanza inserted 12/17 PLAN: - Continue resuscitation - Trend CMP Delirium 12/16/2020 12/22/2020 Last Assessment & Plan: Delirium likely 2/2 infection. Geriatrics has been following PLAN: -- continue oxycodone 2.5-5mg every 4 hours as needed for pain (NGT) -- limit narcotic -- treat active infection/supportive care Hypomagnesemia 12/16/2020 12/17/2020 Last Assessment & Plan: Assessment: Hypomagnesemia PLAN: -Magnesium sulfate 2 gm IV x 1. -Monitor: signs, symptoms, disease progression, disease regression. -Evaluate: test results, medication effectiveness, response to treatment. Hypophosphataemia 12/16/2020 12/17/2020 Last Assessment & Plan: Assessment: Hypophosphatemia PLAN: -Sodium phosphate 30 mmol IV x 1. -Monitor: signs, symptoms, disease progression, disease regression. -Evaluate: test results, medication effectiveness, response to treatment. 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 coli) 021 12/17/2020 Last Assessment & Plan: Assessment: 12/17 patient is tachycardic, hypotensive, lactate elevated, given some pressors and fluid by Amet, Blood culture pending. 12/16 UA and Ucx grow GNB. Started on zosyn. PLAN: - Zosyn - Follow up culture - Keep Map >65, pressors as needed, currently on Levo Hemodynamic instability 12/17/2020 02/28/20 Last Assessment & Plan: Assessment: Likely urosepsis, on levo gtt PLAN: Keep Map >65, pressors as needed, currently on Levo Sepsis due to Gram-negative organism with septic shock 12/17/2020 12/22/2020 Last Assessment & Plan: Assessment: - Proteus identified in blood and urine, bourgeois-sensitive - Showed great improvement over the last 2 days - Now off pressors and extubated. PLAN: - Amikacin re-dosed 12/19. Continue zosyn - CT chest/abdomen/pelvis to assess for potential additional sources of infection was unremarkable. - Follow up C/S - Stress dose steroids Acute postoperative respiratory insufficiency 12/22/2020 Last Assessment & Plan: Assessment: - PTX on 12/18 CXR, s/p 14Fr pigtail. This has been repositioned as needed. - Currently extubated with adequate O2 saturations on room air PLAN: - Monitor respiratory status. - Will assess tpday for Pigtail removal BRITTANY (acute kidney injury) 12/17/20202020 Last Assessment & Plan: Assessment: - Resolving, likely prerenal versus less likely ATN given speed of improvement - Solute clearance appropriate - UOP good volume - New almanza inserted 12/17 PLAN: - Continue resuscitation - Trend CMP Delirium 12/16/2020 12/22/2020 Last Assessment & Plan: Delirium likely 2/2 infection. Geriatrics has been following PLAN: -- continue oxycodone 2.5-5mg every 4 hours as needed for pain (NGT) -- limit narcotic -- treat active infection/supportive care Hypomagnesemia 12/16/2020 12/17/2020 Last Assessment & Plan: Assessment: Hypomagnesemia PLAN: -Magnesium sulfate 2 gm IV x 1. -Monitor: signs, symptoms, disease progression, disease regression. -Evaluate: test results, medication effectiveness, response to treatment. Hypophosphataemia 12/16/2020 12/17/2020 Last Assessment & Plan: Assessment: Hypophosphatemia PLAN: -Sodium phosphate 30 mmol IV x 1. -Monitor: signs, symptoms, disease progression, disease regression. -Evaluate: test results, medication effectiveness, response to treatment. 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 coli) 021 12/17/2020 Last Assessment & Plan: Assessment: 12/17 patient is tachycardic, hypotensive, lactate elevated, given some pressors and fluid by Amet, Blood culture pending. 12/16 UA and Ucx grow GNB. Started on zosyn. PLAN: - Zosyn - Follow up culture - Keep Map >65, pressors as needed, currently on Levo Hemodynamic instability 12/17/2020 02/28/20 Last Assessment & Plan: Assessment: Likely urosepsis, on levo gtt PLAN: Keep Map >65, pressors as needed, currently on Levo Sepsis due to Gram-negative organism with septic shock 12/17/2020 12/22/2020 Last Assessment & Plan: Assessment: - Proteus identified in blood and urine, bourgeois-sensitive - Showed great improvement over the last 2 days - Now off pressors and extubated. PLAN: - Amikacin re-dosed 12/19. Continue zosyn - CT chest/abdomen/pelvis to assess for potential additional sources of infection was unremarkable. - Follow up C/S - Stress dose steroids Acute postoperative respiratory insufficiency 12/22/2020 Last Assessment & Plan: Assessment: - PTX on 12/18 CXR, s/p 14Fr pigtail. This has been repositioned as needed. - Currently extubated with adequate O2 saturations on room air PLAN: - Monitor respiratory status. - Will assess tpday for Pigtail removal BRITTANY (acute kidney injury) 12/17/20202020 Last Assessment & Plan: Assessment: - Resolving, likely prerenal versus less likely ATN given speed of improvement - Solute clearance appropriate - UOP good volume - New almanza inserted 12/17 PLAN: - Continue resuscitation - Trend CMP Delirium 12/16/2020 12/22/2020 Last Assessment & Plan: Delirium likely 2/2 infection. Geriatrics has been following PLAN: -- continue oxycodone 2.5-5mg every 4 hours as needed for pain (NGT) -- limit narcotic -- treat active infection/supportive care Hypomagnesemia 12/16/2020 12/17/2020 Last Assessment & Plan: Assessment: Hypomagnesemia PLAN: -Magnesium sulfate 2 gm IV x 1. -Monitor: signs, symptoms, disease progression, disease regression. -Evaluate: test results, medication effectiveness, response to treatment. Hypophosphataemia 12/16/2020 12/17/2020 Last Assessment & Plan: Assessment: Hypophosphatemia PLAN: -Sodium phosphate 30 mmol IV x 1. -Monitor: signs, symptoms, disease progression, disease regression. -Evaluate: test results, medication effectiveness, response to treatment. 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 coli) 021 12/17/2020 Last Assessment & Plan: Assessment: 12/17 patient is tachycardic, hypotensive, lactate elevated, given some pressors and fluid by Amet, Blood culture pending. 12/16 UA and Ucx grow GNB. Started on zosyn. PLAN: - Zosyn - Follow up culture - Keep Map >65, pressors as needed, currently on Levo Hemodynamic instability 12/17/2020 02/28/20 Last Assessment & Plan: Assessment: Likely urosepsis, on levo gtt PLAN: Keep Map >65, pressors as needed, currently on Levo Sepsis due to Gram-negative organism with septic shock 12/17/2020 12/22/2020 Last Assessment & Plan: Assessment: - Proteus identified in blood and urine, bourgeois-sensitive - Showed great improvement over the last 2 days - Now off pressors and extubated. PLAN: - Amikacin re-dosed 12/19. Continue zosyn - CT chest/abdomen/pelvis to assess for potential additional sources of infection was unremarkable. - Follow up C/S - Stress dose steroids Acute postoperative respiratory insufficiency 12/22/2020 Last Assessment & Plan: Assessment: - PTX on 12/18 CXR, s/p 14Fr pigtail. This has been repositioned as needed. - Currently extubated with adequate O2 saturations on room air PLAN: - Monitor respiratory status. - Will assess tpday for Pigtail removal BRITTANY (acute kidney injury) 12/17/20202020 Last Assessment & Plan: Assessment: - Resolving, likely prerenal versus less likely ATN given speed of improvement - Solute clearance appropriate - UOP good volume - New almanza inserted 12/17 PLAN: - Continue resuscitation - Trend CMP Delirium 12/16/2020 12/22/2020 Last Assessment & Plan: Delirium likely 2/2 infection. Geriatrics has been following PLAN: -- continue oxycodone 2.5-5mg every 4 hours as needed for pain (NGT) -- limit narcotic -- treat active infection/supportive care Hypomagnesemia 12/16/2020 12/17/2020 Last Assessment & Plan: Assessment: Hypomagnesemia PLAN: -Magnesium sulfate 2 gm IV x 1. -Monitor: signs, symptoms, disease progression, disease regression. -Evaluate: test results, medication effectiveness, response to treatment. Hypophosphataemia 12/16/2020 12/17/2020 Last Assessment & Plan: Assessment: Hypophosphatemia PLAN: -Sodium phosphate 30 mmol IV x 1. -Monitor: signs, symptoms, disease progression, disease regression. -Evaluate: test results, medication effectiveness, response to treatment. 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 coli) 021 12/17/2020 Last Assessment & Plan: Assessment: 12/17 patient is tachycardic, hypotensive, lactate elevated, given some pressors and fluid by Amet, Blood culture pending. 12/16 UA and Ucx grow GNB. Started on zosyn. PLAN: - Zosyn - Follow up culture - Keep Map >65, pressors as needed, currently on Levo Hemodynamic instability 12/17/2020 02/28/20 Last Assessment & Plan: Assessment: Likely urosepsis, on levo gtt PLAN: Keep Map >65, pressors as needed, currently on Levo Sepsis due to Gram-negative organism with septic shock 12/17/2020 12/22/2020 Last Assessment & Plan: Assessment: - Proteus identified in blood and urine, bourgeois-sensitive - Showed great improvement over the last 2 days - Now off pressors and extubated. PLAN: - Amikacin re-dosed 12/19. Continue zosyn - CT chest/abdomen/pelvis to assess for potential additional sources of infection was unremarkable. - Follow up C/S - Stress dose steroids Acute postoperative respiratory insufficiency 12/22/2020 Last Assessment & Plan: Assessment: - PTX on 12/18 CXR, s/p 14Fr pigtail. This has been repositioned as needed. - Currently extubated with adequate O2 saturations on room air PLAN: - Monitor respiratory status. - Will assess tpday for Pigtail removal BRITTANY (acute kidney injury) 12/17/20202020 Last Assessment & Plan: Assessment: - Resolving, likely prerenal versus less likely ATN given speed of improvement - Solute clearance appropriate - UOP good volume - New almanza inserted 12/17 PLAN: - Continue resuscitation - Trend CMP Delirium 12/16/2020 12/22/2020 Last Assessment & Plan: Delirium likely 2/2 infection. Geriatrics has been following PLAN: -- continue oxycodone 2.5-5mg every 4 hours as needed for pain (NGT) -- limit narcotic -- treat active infection/supportive care Hypomagnesemia 12/16/2020 12/17/2020 Last Assessment & Plan: Assessment: Hypomagnesemia PLAN: -Magnesium sulfate 2 gm IV x 1. -Monitor: signs, symptoms, disease progression, disease regression. -Evaluate: test results, medication effectiveness, response to treatment. Hypophosphataemia 12/16/2020 12/17/2020 Last Assessment & Plan: Assessment: Hypophosphatemia PLAN: -Sodium phosphate 30 mmol IV x 1. -Monitor: signs, symptoms, disease progression, disease regression. -Evaluate: test results, medication effectiveness, response to treatment. 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 coli) 021 12/17/2020 Last Assessment & Plan: Assessment: 12/17 patient is tachycardic, hypotensive, lactate elevated, given some pressors and fluid by Amet, Blood culture pending. 12/16 UA and Ucx grow GNB. Started on zosyn. PLAN: - Zosyn - Follow up culture - Keep Map >65, pressors as needed, currently on Levo Hemodynamic instability 12/17/2020 02/28/20 Last Assessment & Plan: Assessment: Likely urosepsis, on levo gtt PLAN: Keep Map >65, pressors as needed, currently on Levo Sepsis due to Gram-negative organism with septic shock 12/17/2020 12/22/2020 Last Assessment & Plan: Assessment: - Proteus identified in blood and urine, bourgeois-sensitive - Showed great improvement over the last 2 days - Now off pressors and extubated. PLAN: - Amikacin re-dosed 12/19. Continue zosyn - CT chest/abdomen/pelvis to assess for potential additional sources of infection was unremarkable. - Follow up C/S - Stress dose steroids Acute postoperative respiratory insufficiency 12/22/2020 Last Assessment & Plan: Assessment: - PTX on 12/18 CXR, s/p 14Fr pigtail. This has been repositioned as needed. - Currently extubated with adequate O2 saturations on room air PLAN: - Monitor respiratory status. - Will assess tpday for Pigtail removal BRITTANY (acute kidney injury) 12/17/20202020 Last Assessment & Plan: Assessment: - Resolving, likely prerenal versus less likely ATN given speed of improvement - Solute clearance appropriate - UOP good volume - New almanza inserted 12/17 PLAN: - Continue resuscitation - Trend CMP Delirium 12/16/2020 12/22/2020 Last Assessment & Plan: Delirium likely 2/2 infection. Geriatrics has been following PLAN: -- continue oxycodone 2.5-5mg every 4 hours as needed for pain (NGT) -- limit narcotic -- treat active infection/supportive care Hypomagnesemia 12/16/2020 12/17/2020 Last Assessment & Plan: Assessment: Hypomagnesemia PLAN: -Magnesium sulfate 2 gm IV x 1. -Monitor: signs, symptoms, disease progression, disease regression. -Evaluate: test results, medication effectiveness, response to treatment. Hypophosphataemia 12/16/2020 12/17/2020 Last Assessment & Plan: Assessment: Hypophosphatemia PLAN: -Sodium phosphate 30 mmol IV x 1. -Monitor: signs, symptoms, disease progression, disease regression. -Evaluate: test results, medication effectiveness, response to treatment. 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 coli) 021 12/17/2020 Last Assessment & Plan: Assessment: 12/17 patient is tachycardic, hypotensive, lactate elevated, given some pressors and fluid by Amet, Blood culture pending. 12/16 UA and Ucx grow GNB. Started on zosyn. PLAN: - Zosyn - Follow up culture - Keep Map >65, pressors as needed, currently on Levo Hemodynamic instability 12/17/2020 02/28/20 Last Assessment & Plan: Assessment: Likely urosepsis, on levo gtt PLAN: Keep Map >65, pressors as needed, currently on Levo Sepsis due to Gram-negative organism with septic shock 12/17/2020 12/22/2020 Last Assessment & Plan: Assessment: - Proteus identified in blood and urine, bourgeois-sensitive - Showed great improvement over the last 2 days - Now off pressors and extubated. PLAN: - Amikacin re-dosed 12/19. Continue zosyn - CT chest/abdomen/pelvis to assess for potential additional sources of infection was unremarkable. - Follow up C/S - Stress dose steroids Acute postoperative respiratory insufficiency 12/22/2020 Last Assessment & Plan: Assessment: - PTX on 12/18 CXR, s/p 14Fr pigtail. This has been repositioned as needed. - Currently extubated with adequate O2 saturations on room air PLAN: - Monitor respiratory status. - Will assess tpday for Pigtail removal BRITTANY (acute kidney injury) 12/17/20202020 Last Assessment & Plan: Assessment: - Resolving, likely prerenal versus less likely ATN given speed of improvement - Solute clearance appropriate - UOP good volume - New almanza inserted 12/17 PLAN: - Continue resuscitation - Trend CMP Delirium 12/16/2020 12/22/2020 Last Assessment & Plan: Delirium likely 2/2 infection. Geriatrics has been following PLAN: -- continue oxycodone 2.5-5mg every 4 hours as needed for pain (NGT) -- limit narcotic -- treat active infection/supportive care Hypomagnesemia 12/16/2020 12/17/2020 Last Assessment & Plan: Assessment: Hypomagnesemia PLAN: -Magnesium sulfate 2 gm IV x 1. -Monitor: signs, symptoms, disease progression, disease regression. -Evaluate: test results, medication effectiveness, response to treatment. Hypophosphataemia 12/16/2020 12/17/2020 Last Assessment & Plan: Assessment: Hypophosphatemia PLAN: -Sodium phosphate 30 mmol IV x 1. -Monitor: signs, symptoms, disease progression, disease regression. -Evaluate: test results, medication effectiveness, response to treatment. 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 coli) 021 12/17/2020 Last Assessment & Plan: Assessment: 12/17 patient is tachycardic, hypotensive, lactate elevated, given some pressors and fluid by Amet, Blood culture pending. 12/16 UA and Ucx grow GNB. Started on zosyn. PLAN: - Zosyn - Follow up culture - Keep Map >65, pressors as needed, currently on Levo Hemodynamic instability 12/17/2020 02/28/20 Last Assessment & Plan: Assessment: Likely urosepsis, on levo gtt PLAN: Keep Map >65, pressors as needed, currently on Levo Sepsis due to Gram-negative organism with septic shock 12/17/2020 12/22/2020 Last Assessment & Plan: Assessment: - Proteus identified in blood and urine, bourgeois-sensitive - Showed great improvement over the last 2 days - Now off pressors and extubated. PLAN: - Amikacin re-dosed 12/19. Continue zosyn - CT chest/abdomen/pelvis to assess for potential additional sources of infection was unremarkable. - Follow up C/S - Stress dose steroids Acute postoperative respiratory insufficiency 12/22/2020 Last Assessment & Plan: Assessment: - PTX on 12/18 CXR, s/p 14Fr pigtail. This has been repositioned as needed. - Currently extubated with adequate O2 saturations on room air PLAN: - Monitor respiratory status. - Will assess tpday for Pigtail removal BRITTANY (acute kidney injury) 12/17/20202020 Last Assessment & Plan: Assessment: - Resolving, likely prerenal versus less likely ATN given speed of improvement - Solute clearance appropriate - UOP good volume - New almanza inserted 12/17 PLAN: - Continue resuscitation - Trend CMP Delirium 12/16/2020 12/22/2020 Last Assessment & Plan: Delirium likely 2/2 infection. Geriatrics has been following PLAN: -- continue oxycodone 2.5-5mg every 4 hours as needed for pain (NGT) -- limit narcotic -- treat active infection/supportive care Hypomagnesemia 12/16/2020 12/17/2020 Last Assessment & Plan: Assessment: Hypomagnesemia PLAN: -Magnesium sulfate 2 gm IV x 1. -Monitor: signs, symptoms, disease progression, disease regression. -Evaluate: test results, medication effectiveness, response to treatment. Hypophosphataemia 12/16/2020 12/17/2020 Last Assessment & Plan: Assessment: Hypophosphatemia PLAN: -Sodium phosphate 30 mmol IV x 1. -Monitor: signs, symptoms, disease progression, disease regression. -Evaluate: test results, medication effectiveness, response to treatment. 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 coli) 021 12/17/2020 Last Assessment & Plan: Assessment: 12/17 patient is tachycardic, hypotensive, lactate elevated, given some pressors and fluid by Amet, Blood culture pending. 12/16 UA and Ucx grow GNB. Started on zosyn. PLAN: - Zosyn - Follow up culture - Keep Map >65, pressors as needed, currently on Levo Hemodynamic instability 12/17/2020 02/28/20 Last Assessment & Plan: Assessment: Likely urosepsis, on levo gtt PLAN: Keep Map >65, pressors as needed, currently on Levo Sepsis due to Gram-negative organism with septic shock 12/17/2020 12/22/2020 Last Assessment & Plan: Assessment: - Proteus identified in blood and urine, bourgeois-sensitive - Showed great improvement over the last 2 days - Now off pressors and extubated. PLAN: - Amikacin re-dosed 12/19. Continue zosyn - CT chest/abdomen/pelvis to assess for potential additional sources of infection was unremarkable. - Follow up C/S - Stress dose steroids Acute postoperative respiratory insufficiency 12/22/2020 Last Assessment & Plan: Assessment: - PTX on 12/18 CXR, s/p 14Fr pigtail. This has been repositioned as needed. - Currently extubated with adequate O2 saturations on room air PLAN: - Monitor respiratory status. - Will assess tpday for Pigtail removal BRITTANY (acute kidney injury) 12/17/20202020 Last Assessment & Plan: Assessment: - Resolving, likely prerenal versus less likely ATN given speed of improvement - Solute clearance appropriate - UOP good volume - New almanza inserted 12/17 PLAN: - Continue resuscitation - Trend CMP Delirium 12/16/2020 12/22/2020 Last Assessment & Plan: Delirium likely 2/2 infection. Geriatrics has been following PLAN: -- continue oxycodone 2.5-5mg every 4 hours as needed for pain (NGT) -- limit narcotic -- treat active infection/supportive care Hypomagnesemia 12/16/2020 12/17/2020 Last Assessment & Plan: Assessment: Hypomagnesemia PLAN: -Magnesium sulfate 2 gm IV x 1. -Monitor: signs, symptoms, disease progression, disease regression. -Evaluate: test results, medication effectiveness, response to treatment. Hypophosphataemia 12/16/2020 12/17/2020 Last Assessment & Plan: Assessment: Hypophosphatemia PLAN: -Sodium phosphate 30 mmol IV x 1. -Monitor: signs, symptoms, disease progression, disease regression. -Evaluate: test results, medication effectiveness, response to treatment. 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 coli) 021 12/17/2020 Last Assessment & Plan: Assessment: 12/17 patient is tachycardic, hypotensive, lactate elevated, given some pressors and fluid by Amet, Blood culture pending. 12/16 UA and Ucx grow GNB. Started on zosyn. PLAN: - Zosyn - Follow up culture - Keep Map >65, pressors as needed, currently on Levo Hemodynamic instability 12/17/2020 02/28/20 Last Assessment & Plan: Assessment: Likely urosepsis, on levo gtt PLAN: Keep Map >65, pressors as needed, currently on Levo Sepsis due to Gram-negative organism with septic shock 12/17/2020 12/22/2020 Last Assessment & Plan: Assessment: - Proteus identified in blood and urine, bourgeois-sensitive - Showed great improvement over the last 2 days - Now off pressors and extubated. PLAN: - Amikacin re-dosed 12/19. Continue zosyn - CT chest/abdomen/pelvis to assess for potential additional sources of infection was unremarkable. - Follow up C/S - Stress dose steroids Acute postoperative respiratory insufficiency 12/22/2020 Last Assessment & Plan: Assessment: - PTX on 12/18 CXR, s/p 14Fr pigtail. This has been repositioned as needed. - Currently extubated with adequate O2 saturations on room air PLAN: - Monitor respiratory status. - Will assess tpday for Pigtail removal BRITTANY (acute kidney injury) 12/17/20202020 Last Assessment & Plan: Assessment: - Resolving, likely prerenal versus less likely ATN given speed of improvement - Solute clearance appropriate - UOP good volume - New almanza inserted 12/17 PLAN: - Continue resuscitation - Trend CMP Delirium 12/16/2020 12/22/2020 Last Assessment & Plan: Delirium likely 2/2 infection. Geriatrics has been following PLAN: -- continue oxycodone 2.5-5mg every 4 hours as needed for pain (NGT) -- limit narcotic -- treat active infection/supportive care Hypomagnesemia 12/16/2020 12/17/2020 Last Assessment & Plan: Assessment: Hypomagnesemia PLAN: -Magnesium sulfate 2 gm IV x 1. -Monitor: signs, symptoms, disease progression, disease regression. -Evaluate: test results, medication effectiveness, response to treatment. Hypophosphataemia 12/16/2020 12/17/2020 Last Assessment & Plan: Assessment: Hypophosphatemia PLAN: -Sodium phosphate 30 mmol IV x 1. -Monitor: signs, symptoms, disease progression, disease regression. -Evaluate: test results, medication effectiveness, response to treatment. 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 coli) 021 12/17/2020 Last Assessment & Plan: Assessment: 12/17 patient is tachycardic, hypotensive, lactate elevated, given some pressors and fluid by Amet, Blood culture pending. 12/16 UA and Ucx grow GNB. Started on zosyn. PLAN: - Zosyn - Follow up culture - Keep Map >65, pressors as needed, currently on Levo Hemodynamic instability 12/17/2020 02/28/20 Last Assessment & Plan: Assessment: Likely urosepsis, on levo gtt PLAN: Keep Map >65, pressors as needed, currently on Levo Sepsis due to Gram-negative organism with septic shock 12/17/2020 12/22/2020 Last Assessment & Plan: Assessment: - Proteus identified in blood and urine, bourgeois-sensitive - Showed great improvement over the last 2 days - Now off pressors and extubated. PLAN: - Amikacin re-dosed 12/19. Continue zosyn - CT chest/abdomen/pelvis to assess for potential additional sources of infection was unremarkable. - Follow up C/S - Stress dose steroids Acute postoperative respiratory insufficiency 12/22/2020 Last Assessment & Plan: Assessment: - PTX on 12/18 CXR, s/p 14Fr pigtail. This has been repositioned as needed. - Currently extubated with adequate O2 saturations on room air PLAN: - Monitor respiratory status. - Will assess tpday for Pigtail removal BRITTANY (acute kidney injury) 12/17/20202020 Last Assessment & Plan: Assessment: - Resolving, likely prerenal versus less likely ATN given speed of improvement - Solute clearance appropriate - UOP good volume - New almanza inserted 12/17 PLAN: - Continue resuscitation - Trend CMP Delirium 12/16/2020 12/22/2020 Last Assessment & Plan: Delirium likely 2/2 infection. Geriatrics has been following PLAN: -- continue oxycodone 2.5-5mg every 4 hours as needed for pain (NGT) -- limit narcotic -- treat active infection/supportive care Hypomagnesemia 12/16/2020 12/17/2020 Last Assessment & Plan: Assessment: Hypomagnesemia PLAN: -Magnesium sulfate 2 gm IV x 1. -Monitor: signs, symptoms, disease progression, disease regression. -Evaluate: test results, medication effectiveness, response to treatment. Hypophosphataemia 12/16/2020 12/17/2020 Last Assessment & Plan: Assessment: Hypophosphatemia PLAN: -Sodium phosphate 30 mmol IV x 1. -Monitor: signs, symptoms, disease progression, disease regression. -Evaluate: test results, medication effectiveness, response to treatment. 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 coli) 021 12/17/2020 Last Assessment & Plan: Assessment: 12/17 patient is tachycardic, hypotensive, lactate elevated, given some pressors and fluid by Amet, Blood culture pending. 12/16 UA and Ucx grow GNB. Started on zosyn. PLAN: - Zosyn - Follow up culture - Keep Map >65, pressors as needed, currently on Levo Hemodynamic instability 12/17/2020 02/28/20 Last Assessment & Plan: Assessment: Likely urosepsis, on levo gtt PLAN: Keep Map >65, pressors as needed, currently on Levo Sepsis due to Gram-negative organism with septic shock 12/17/2020 12/22/2020 Last Assessment & Plan: Assessment: - Proteus identified in blood and urine, bourgeois-sensitive - Showed great improvement over the last 2 days - Now off pressors and extubated. PLAN: - Amikacin re-dosed 12/19. Continue zosyn - CT chest/abdomen/pelvis to assess for potential additional sources of infection was unremarkable. - Follow up C/S - Stress dose steroids Acute postoperative respiratory insufficiency 12/22/2020 Last Assessment & Plan: Assessment: - PTX on 12/18 CXR, s/p 14Fr pigtail. This has been repositioned as needed. - Currently extubated with adequate O2 saturations on room air PLAN: - Monitor respiratory status. - Will assess tpday for Pigtail removal BRITTANY (acute kidney injury) 12/17/20202020 Last Assessment & Plan: Assessment: - Resolving, likely prerenal versus less likely ATN given speed of improvement - Solute clearance appropriate - UOP good volume - New almanza inserted 12/17 PLAN: - Continue resuscitation - Trend CMP Delirium 12/16/2020 12/22/2020 Last Assessment & Plan: Delirium likely 2/2 infection. Geriatrics has been following PLAN: -- continue oxycodone 2.5-5mg every 4 hours as needed for pain (NGT) -- limit narcotic -- treat active infection/supportive care Hypomagnesemia 12/16/2020 12/17/2020 Last Assessment & Plan: Assessment: Hypomagnesemia PLAN: -Magnesium sulfate 2 gm IV x 1. -Monitor: signs, symptoms, disease progression, disease regression. -Evaluate: test results, medication effectiveness, response to treatment. Hypophosphataemia 12/16/2020 12/17/2020 Last Assessment & Plan: Assessment: Hypophosphatemia PLAN: -Sodium phosphate 30 mmol IV x 1. -Monitor: signs, symptoms, disease progression, disease regression. -Evaluate: test results, medication effectiveness, response to treatment. 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 coli) 021 12/17/2020 Last Assessment & Plan: Assessment: 12/17 patient is tachycardic, hypotensive, lactate elevated, given some pressors and fluid by Amet, Blood culture pending. 12/16 UA and Ucx grow GNB. Started on zosyn. PLAN: - Zosyn - Follow up culture - Keep Map >65, pressors as needed, currently on Levo Hemodynamic instability 12/17/2020 02/28/20 Last Assessment & Plan: Assessment: Likely urosepsis, on levo gtt PLAN: Keep Map >65, pressors as needed, currently on Levo Sepsis due to Gram-negative organism with septic shock 12/17/2020 12/22/2020 Last Assessment & Plan: Assessment: - Proteus identified in blood and urine, bourgeois-sensitive - Showed great improvement over the last 2 days - Now off pressors and extubated. PLAN: - Amikacin re-dosed 12/19. Continue zosyn - CT chest/abdomen/pelvis to assess for potential additional sources of infection was unremarkable. - Follow up C/S - Stress dose steroids Acute postoperative respiratory insufficiency 12/22/2020 Last Assessment & Plan: Assessment: - PTX on 12/18 CXR, s/p 14Fr pigtail. This has been repositioned as needed. - Currently extubated with adequate O2 saturations on room air PLAN: - Monitor respiratory status. - Will assess tpday for Pigtail removal BRITTANY (acute kidney injury) 12/17/20202020 Last Assessment & Plan: Assessment: - Resolving, likely prerenal versus less likely ATN given speed of improvement - Solute clearance appropriate - UOP good volume - New almanza inserted 12/17 PLAN: - Continue resuscitation - Trend CMP Delirium 12/16/2020 12/22/2020 Last Assessment & Plan: Delirium likely 2/2 infection. Geriatrics has been following PLAN: -- continue oxycodone 2.5-5mg every 4 hours as needed for pain (NGT) -- limit narcotic -- treat active infection/supportive care Hypomagnesemia 12/16/2020 12/17/2020 Last Assessment & Plan: Assessment: Hypomagnesemia PLAN: -Magnesium sulfate 2 gm IV x 1. -Monitor: signs, symptoms, disease progression, disease regression. -Evaluate: test results, medication effectiveness, response to treatment. Hypophosphataemia 12/16/2020 12/17/2020 Last Assessment & Plan: Assessment: Hypophosphatemia PLAN: -Sodium phosphate 30 mmol IV x 1. -Monitor: signs, symptoms, disease progression, disease regression. -Evaluate: test results, medication effectiveness, response to treatment. 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 coli) 021 12/17/2020 Last Assessment & Plan: Assessment: 12/17 patient is tachycardic, hypotensive, lactate elevated, given some pressors and fluid by Amet, Blood culture pending. 12/16 UA and Ucx grow GNB. Started on zosyn. PLAN: - Zosyn - Follow up culture - Keep Map >65, pressors as needed, currently on Levo Hemodynamic instability 12/17/2020 02/28/20 Last Assessment & Plan: Assessment: Likely urosepsis, on levo gtt PLAN: Keep Map >65, pressors as needed, currently on Levo Sepsis due to Gram-negative organism with septic shock 12/17/2020 12/22/2020 Last Assessment & Plan: Assessment: - Proteus identified in blood and urine, bourgeois-sensitive - Showed great improvement over the last 2 days - Now off pressors and extubated. PLAN: - Amikacin re-dosed 12/19. Continue zosyn - CT chest/abdomen/pelvis to assess for potential additional sources of infection was unremarkable. - Follow up C/S - Stress dose steroids Acute postoperative respiratory insufficiency 12/22/2020 Last Assessment & Plan: Assessment: - PTX on 12/18 CXR, s/p 14Fr pigtail. This has been repositioned as needed. - Currently extubated with adequate O2 saturations on room air PLAN: - Monitor respiratory status. - Will assess tpday for Pigtail removal BRITTANY (acute kidney injury) 12/17/20202020 Last Assessment & Plan: Assessment: - Resolving, likely prerenal versus less likely ATN given speed of improvement - Solute clearance appropriate - UOP good volume - New almanza inserted 12/17 PLAN: - Continue resuscitation - Trend CMP Delirium 12/16/2020 12/22/2020 Last Assessment & Plan: Delirium likely 2/2 infection. Geriatrics has been following PLAN: -- continue oxycodone 2.5-5mg every 4 hours as needed for pain (NGT) -- limit narcotic -- treat active infection/supportive care Hypomagnesemia 12/16/2020 12/17/2020 Last Assessment & Plan: Assessment: Hypomagnesemia PLAN: -Magnesium sulfate 2 gm IV x 1. -Monitor: signs, symptoms, disease progression, disease regression. -Evaluate: test results, medication effectiveness, response to treatment. Hypophosphataemia 12/16/2020 12/17/2020 Last Assessment & Plan: Assessment: Hypophosphatemia PLAN: -Sodium phosphate 30 mmol IV x 1. -Monitor: signs, symptoms, disease progression, disease regression. -Evaluate: test results, medication effectiveness, response to treatment. 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 coli) 021 12/17/2020 Last Assessment & Plan: Assessment: 12/17 patient is tachycardic, hypotensive, lactate elevated, given some pressors and fluid by Amet, Blood culture pending. 12/16 UA and Ucx grow GNB. Started on zosyn. PLAN: - Zosyn - Follow up culture - Keep Map >65, pressors as needed, currently on Levo Hemodynamic instability 12/17/2020 02/28/20 Last Assessment & Plan: Assessment: Likely urosepsis, on levo gtt PLAN: Keep Map >65, pressors as needed, currently on Levo Sepsis due to Gram-negative organism with septic shock 12/17/2020 12/22/2020 Last Assessment & Plan: Assessment: - Proteus identified in blood and urine, bourgeois-sensitive - Showed great improvement over the last 2 days - Now off pressors and extubated. PLAN: - Amikacin re-dosed 12/19. Continue zosyn - CT chest/abdomen/pelvis to assess for potential additional sources of infection was unremarkable. - Follow up C/S - Stress dose steroids Acute postoperative respiratory insufficiency 12/22/2020 Last Assessment & Plan: Assessment: - PTX on 12/18 CXR, s/p 14Fr pigtail. This has been repositioned as needed. - Currently extubated with adequate O2 saturations on room air PLAN: - Monitor respiratory status. - Will assess tpday for Pigtail removal BRITTANY (acute kidney injury) 12/17/20202020 Last Assessment & Plan: Assessment: - Resolving, likely prerenal versus less likely ATN given speed of improvement - Solute clearance appropriate - UOP good volume - New almanza inserted 12/17 PLAN: - Continue resuscitation - Trend CMP Delirium 12/16/2020 12/22/2020 Last Assessment & Plan: Delirium likely 2/2 infection. Geriatrics has been following PLAN: -- continue oxycodone 2.5-5mg every 4 hours as needed for pain (NGT) -- limit narcotic -- treat active infection/supportive care Hypomagnesemia 12/16/2020 12/17/2020 Last Assessment & Plan: Assessment: Hypomagnesemia PLAN: -Magnesium sulfate 2 gm IV x 1. -Monitor: signs, symptoms, disease progression, disease regression. -Evaluate: test results, medication effectiveness, response to treatment. Hypophosphataemia 12/16/2020 12/17/2020 Last Assessment & Plan: Assessment: Hypophosphatemia PLAN: -Sodium phosphate 30 mmol IV x 1. -Monitor: signs, symptoms, disease progression, disease regression. -Evaluate: test results, medication effectiveness, response to treatment. 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 coli) 021 12/17/2020 Last Assessment & Plan: Assessment: 12/17 patient is tachycardic, hypotensive, lactate elevated, given some pressors and fluid by Amet, Blood culture pending. 12/16 UA and Ucx grow GNB. Started on zosyn. PLAN: - Zosyn - Follow up culture - Keep Map >65, pressors as needed, currently on Levo Hemodynamic instability 12/17/2020 02/28/20 Last Assessment & Plan: Assessment: Likely urosepsis, on levo gtt PLAN: Keep Map >65, pressors as needed, currently on Levo Sepsis due to Gram-negative organism with septic shock 12/17/2020 12/22/2020 Last Assessment & Plan: Assessment: - Proteus identified in blood and urine, bourgeois-sensitive - Showed great improvement over the last 2 days - Now off pressors and extubated. PLAN: - Amikacin re-dosed 12/19. Continue zosyn - CT chest/abdomen/pelvis to assess for potential additional sources of infection was unremarkable. - Follow up C/S - Stress dose steroids Acute postoperative respiratory insufficiency 12/22/2020 Last Assessment & Plan: Assessment: - PTX on 12/18 CXR, s/p 14Fr pigtail. This has been repositioned as needed. - Currently extubated with adequate O2 saturations on room air PLAN: - Monitor respiratory status. - Will assess tpday for Pigtail removal BRITTANY (acute kidney injury) 12/17/20202020 Last Assessment & Plan: Assessment: - Resolving, likely prerenal versus less likely ATN given speed of improvement - Solute clearance appropriate - UOP good volume - New almanza inserted 12/17 PLAN: - Continue resuscitation - Trend CMP Delirium 12/16/2020 12/22/2020 Last Assessment & Plan: Delirium likely 2/2 infection. Geriatrics has been following PLAN: -- continue oxycodone 2.5-5mg every 4 hours as needed for pain (NGT) -- limit narcotic -- treat active infection/supportive care Hypomagnesemia 12/16/2020 12/17/2020 Last Assessment & Plan: Assessment: Hypomagnesemia PLAN: -Magnesium sulfate 2 gm IV x 1. -Monitor: signs, symptoms, disease progression, disease regression. -Evaluate: test results, medication effectiveness, response to treatment. Hypophosphataemia 12/16/2020 12/17/2020 Last Assessment & Plan: Assessment: Hypophosphatemia PLAN: -Sodium phosphate 30 mmol IV x 1. -Monitor: signs, symptoms, disease progression, disease regression. -Evaluate: test results, medication effectiveness, response to treatment. 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 coli) 021 12/17/2020 Last Assessment & Plan: Assessment: 12/17 patient is tachycardic, hypotensive, lactate elevated, given some pressors and fluid by Amet, Blood culture pending. 12/16 UA and Ucx grow GNB. Started on zosyn. PLAN: - Zosyn - Follow up culture - Keep Map >65, pressors as needed, currently on Levo Hemodynamic instability 12/17/2020 02/28/20 Last Assessment & Plan: Assessment: Likely urosepsis, on levo gtt PLAN: Keep Map >65, pressors as needed, currently on Levo Sepsis due to Gram-negative organism with septic shock 12/17/2020 12/22/2020 Last Assessment & Plan: Assessment: - Proteus identified in blood and urine, bourgeois-sensitive - Showed great improvement over the last 2 days - Now off pressors and extubated. PLAN: - Amikacin re-dosed 12/19. Continue zosyn - CT chest/abdomen/pelvis to assess for potential additional sources of infection was unremarkable. - Follow up C/S - Stress dose steroids Acute postoperative respiratory insufficiency 12/22/2020 Last Assessment & Plan: Assessment: - PTX on 12/18 CXR, s/p 14Fr pigtail. This has been repositioned as needed. - Currently extubated with adequate O2 saturations on room air PLAN: - Monitor respiratory status. - Will assess tpday for Pigtail removal BRITTANY (acute kidney injury) 12/17/20202020 Last Assessment & Plan: Assessment: - Resolving, likely prerenal versus less likely ATN given speed of improvement - Solute clearance appropriate - UOP good volume - New almanza inserted 12/17 PLAN: - Continue resuscitation - Trend CMP Delirium 12/16/2020 12/22/2020 Last Assessment & Plan: Delirium likely 2/2 infection. Geriatrics has been following PLAN: -- continue oxycodone 2.5-5mg every 4 hours as needed for pain (NGT) -- limit narcotic -- treat active infection/supportive care Hypomagnesemia 12/16/2020 12/17/2020 Last Assessment & Plan: Assessment: Hypomagnesemia PLAN: -Magnesium sulfate 2 gm IV x 1. -Monitor: signs, symptoms, disease progression, disease regression. -Evaluate: test results, medication effectiveness, response to treatment. Hypophosphataemia 12/16/2020 12/17/2020 Last Assessment & Plan: Assessment: Hypophosphatemia PLAN: -Sodium phosphate 30 mmol IV x 1. -Monitor: signs, symptoms, disease progression, disease regression. -Evaluate: test results, medication effectiveness, response to treatment. 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 coli) 021 12/17/2020 Last Assessment & Plan: Assessment: 12/17 patient is tachycardic, hypotensive, lactate elevated, given some pressors and fluid by Amet, Blood culture pending. 12/16 UA and Ucx grow GNB. Started on zosyn. PLAN: - Zosyn - Follow up culture - Keep Map >65, pressors as needed, currently on Levo Hemodynamic instability 12/17/2020 02/28/20 Last Assessment & Plan: Assessment: Likely urosepsis, on levo gtt PLAN: Keep Map >65, pressors as needed, currently on Levo Sepsis due to Gram-negative organism with septic shock 12/17/2020 12/22/2020 Last Assessment & Plan: Assessment: - Proteus identified in blood and urine, bourgeois-sensitive - Showed great improvement over the last 2 days - Now off pressors and extubated. PLAN: - Amikacin re-dosed 12/19. Continue zosyn - CT chest/abdomen/pelvis to assess for potential additional sources of infection was unremarkable. - Follow up C/S - Stress dose steroids Acute postoperative respiratory insufficiency 12/22/2020 Last Assessment & Plan: Assessment: - PTX on 12/18 CXR, s/p 14Fr pigtail. This has been repositioned as needed. - Currently extubated with adequate O2 saturations on room air PLAN: - Monitor respiratory status. - Will assess tpday for Pigtail removal BRITTANY (acute kidney injury) 12/17/20202020 Last Assessment & Plan: Assessment: - Resolving, likely prerenal versus less likely ATN given speed of improvement - Solute clearance appropriate - UOP good volume - New almanza inserted 12/17 PLAN: - Continue resuscitation - Trend CMP Delirium 12/16/2020 12/22/2020 Last Assessment & Plan: Delirium likely 2/2 infection. Geriatrics has been following PLAN: -- continue oxycodone 2.5-5mg every 4 hours as needed for pain (NGT) -- limit narcotic -- treat active infection/supportive care Hypomagnesemia 12/16/2020 12/17/2020 Last Assessment & Plan: Assessment: Hypomagnesemia PLAN: -Magnesium sulfate 2 gm IV x 1. -Monitor: signs, symptoms, disease progression, disease regression. -Evaluate: test results, medication effectiveness, response to treatment. Hypophosphataemia 12/16/2020 12/17/2020 Last Assessment & Plan: Assessment: Hypophosphatemia PLAN: -Sodium phosphate 30 mmol IV x 1. -Monitor: signs, symptoms, disease progression, disease regression. -Evaluate: test results, medication effectiveness, response to treatment. 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 coli) 021 12/17/2020 Last Assessment & Plan: Assessment: 12/17 patient is tachycardic, hypotensive, lactate elevated, given some pressors and fluid by Amet, Blood culture pending. 12/16 UA and Ucx grow GNB. Started on zosyn. PLAN: - Zosyn - Follow up culture - Keep Map >65, pressors as needed, currently on Levo Hemodynamic instability 12/17/2020 02/28/20 Last Assessment & Plan: Assessment: Likely urosepsis, on levo gtt PLAN: Keep Map >65, pressors as needed, currently on Levo Sepsis due to Gram-negative organism with septic shock 12/17/2020 12/22/2020 Last Assessment & Plan: Assessment: - Proteus identified in blood and urine, bourgeois-sensitive - Showed great improvement over the last 2 days - Now off pressors and extubated. PLAN: - Amikacin re-dosed 12/19. Continue zosyn - CT chest/abdomen/pelvis to assess for potential additional sources of infection was unremarkable. - Follow up C/S - Stress dose steroids Acute postoperative respiratory insufficiency 12/22/2020 Last Assessment & Plan: Assessment: - PTX on 12/18 CXR, s/p 14Fr pigtail. This has been repositioned as needed. - Currently extubated with adequate O2 saturations on room air PLAN: - Monitor respiratory status. - Will assess tpday for Pigtail removal BRITTANY (acute kidney injury) 12/17/20202020 Last Assessment & Plan: Assessment: - Resolving, likely prerenal versus less likely ATN given speed of improvement - Solute clearance appropriate - UOP good volume - New almanza inserted 12/17 PLAN: - Continue resuscitation - Trend CMP Delirium 12/16/2020 12/22/2020 Last Assessment & Plan: Delirium likely 2/2 infection. Geriatrics has been following PLAN: -- continue oxycodone 2.5-5mg every 4 hours as needed for pain (NGT) -- limit narcotic -- treat active infection/supportive care Hypomagnesemia 12/16/2020 12/17/2020 Last Assessment & Plan: Assessment: Hypomagnesemia PLAN: -Magnesium sulfate 2 gm IV x 1. -Monitor: signs, symptoms, disease progression, disease regression. -Evaluate: test results, medication effectiveness, response to treatment. Hypophosphataemia 12/16/2020 12/17/2020 Last Assessment & Plan: Assessment: Hypophosphatemia PLAN: -Sodium phosphate 30 mmol IV x 1. -Monitor: signs, symptoms, disease progression, disease regression. -Evaluate: test results, medication effectiveness, response to treatment. 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 coli) 021 12/17/2020 Last Assessment & Plan: Assessment: 12/17 patient is tachycardic, hypotensive, lactate elevated, given some pressors and fluid by Amet, Blood culture pending. 12/16 UA and Ucx grow GNB. Started on zosyn. PLAN: - Zosyn - Follow up culture - Keep Map >65, pressors as needed, currently on Levo Hemodynamic instability 12/17/2020 02/28/20 Last Assessment & Plan: Assessment: Likely urosepsis, on levo gtt PLAN: Keep Map >65, pressors as needed, currently on Levo Sepsis due to Gram-negative organism with septic shock 12/17/2020 12/22/2020 Last Assessment & Plan: Assessment: - Proteus identified in blood and urine, bourgeois-sensitive - Showed great improvement over the last 2 days - Now off pressors and extubated. PLAN: - Amikacin re-dosed 12/19. Continue zosyn - CT chest/abdomen/pelvis to assess for potential additional sources of infection was unremarkable. - Follow up C/S - Stress dose steroids Acute postoperative respiratory insufficiency 12/22/2020 Last Assessment & Plan: Assessment: - PTX on 12/18 CXR, s/p 14Fr pigtail. This has been repositioned as needed. - Currently extubated with adequate O2 saturations on room air PLAN: - Monitor respiratory status. - Will assess tpday for Pigtail removal BRITTANY (acute kidney injury) 12/17/20202020 Last Assessment & Plan: Assessment: - Resolving, likely prerenal versus less likely ATN given speed of improvement - Solute clearance appropriate - UOP good volume - New almanza inserted 12/17 PLAN: - Continue resuscitation - Trend CMP Delirium 12/16/2020 12/22/2020 Last Assessment & Plan: Delirium likely 2/2 infection. Geriatrics has been following PLAN: -- continue oxycodone 2.5-5mg every 4 hours as needed for pain (NGT) -- limit narcotic -- treat active infection/supportive care Hypomagnesemia 12/16/2020 12/17/2020 Last Assessment & Plan: Assessment: Hypomagnesemia PLAN: -Magnesium sulfate 2 gm IV x 1. -Monitor: signs, symptoms, disease progression, disease regression. -Evaluate: test results, medication effectiveness, response to treatment. Hypophosphataemia 12/16/2020 12/17/2020 Last Assessment & Plan: Assessment: Hypophosphatemia PLAN: -Sodium phosphate 30 mmol IV x 1. -Monitor: signs, symptoms, disease progression, disease regression. -Evaluate: test results, medication effectiveness, response to treatment. 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 coli) 021 12/17/2020 Last Assessment & Plan: Assessment: 12/17 patient is tachycardic, hypotensive, lactate elevated, given some pressors and fluid by Amet, Blood culture pending. 12/16 UA and Ucx grow GNB. Started on zosyn. PLAN: - Zosyn - Follow up culture - Keep Map >65, pressors as needed, currently on Levo Hemodynamic instability 12/17/2020 02/28/20 Last Assessment & Plan: Assessment: Likely urosepsis, on levo gtt PLAN: Keep Map >65, pressors as needed, currently on Levo Sepsis due to Gram-negative organism with septic shock 12/17/2020 12/22/2020 Last Assessment & Plan: Assessment: - Proteus identified in blood and urine, bourgeois-sensitive - Showed great improvement over the last 2 days - Now off pressors and extubated. PLAN: - Amikacin re-dosed 12/19. Continue zosyn - CT chest/abdomen/pelvis to assess for potential additional sources of infection was unremarkable. - Follow up C/S - Stress dose steroids Acute postoperative respiratory insufficiency 12/22/2020 Last Assessment & Plan: Assessment: - PTX on 12/18 CXR, s/p 14Fr pigtail. This has been repositioned as needed. - Currently extubated with adequate O2 saturations on room air PLAN: - Monitor respiratory status. - Will assess tpday for Pigtail removal BRITTANY (acute kidney injury) 12/17/20202020 Last Assessment & Plan: Assessment: - Resolving, likely prerenal versus less likely ATN given speed of improvement - Solute clearance appropriate - UOP good volume - New almanza inserted 12/17 PLAN: - Continue resuscitation - Trend CMP Delirium 12/16/2020 12/22/2020 Last Assessment & Plan: Delirium likely 2/2 infection. Geriatrics has been following PLAN: -- continue oxycodone 2.5-5mg every 4 hours as needed for pain (NGT) -- limit narcotic -- treat active infection/supportive care Hypomagnesemia 12/16/2020 12/17/2020 Last Assessment & Plan: Assessment: Hypomagnesemia PLAN: -Magnesium sulfate 2 gm IV x 1. -Monitor: signs, symptoms, disease progression, disease regression. -Evaluate: test results, medication effectiveness, response to treatment. Hypophosphataemia 12/16/2020 12/17/2020 Last Assessment & Plan: Assessment: Hypophosphatemia PLAN: -Sodium phosphate 30 mmol IV x 1. -Monitor: signs, symptoms, disease progression, disease regression. -Evaluate: test results, medication effectiveness, response to treatment. 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 coli) 021 12/17/2020 Last Assessment & Plan: Assessment: 12/17 patient is tachycardic, hypotensive, lactate elevated, given some pressors and fluid by Amet, Blood culture pending. 12/16 UA and Ucx grow GNB. Started on zosyn. PLAN: - Zosyn - Follow up culture - Keep Map >65, pressors as needed, currently on Levo Hemodynamic instability 12/17/2020 02/28/20 Last Assessment & Plan: Assessment: Likely urosepsis, on levo gtt PLAN: Keep Map >65, pressors as needed, currently on Levo Sepsis due to Gram-negative organism with septic shock 12/17/2020 12/22/2020 Last Assessment & Plan: Assessment: - Proteus identified in blood and urine, bourgeois-sensitive - Showed great improvement over the last 2 days - Now off pressors and extubated. PLAN: - Amikacin re-dosed 12/19. Continue zosyn - CT chest/abdomen/pelvis to assess for potential additional sources of infection was unremarkable. - Follow up C/S - Stress dose steroids Acute postoperative respiratory insufficiency 12/22/2020 Last Assessment & Plan: Assessment: - PTX on 12/18 CXR, s/p 14Fr pigtail. This has been repositioned as needed. - Currently extubated with adequate O2 saturations on room air PLAN: - Monitor respiratory status. - Will assess tpday for Pigtail removal BRITTANY (acute kidney injury) 12/17/20202020 Last Assessment & Plan: Assessment: - Resolving, likely prerenal versus less likely ATN given speed of improvement - Solute clearance appropriate - UOP good volume - New almanza inserted 12/17 PLAN: - Continue resuscitation - Trend CMP Delirium 12/16/2020 12/22/2020 Last Assessment & Plan: Delirium likely 2/2 infection. Geriatrics has been following PLAN: -- continue oxycodone 2.5-5mg every 4 hours as needed for pain (NGT) -- limit narcotic -- treat active infection/supportive care Hypomagnesemia 12/16/2020 12/17/2020 Last Assessment & Plan: Assessment: Hypomagnesemia PLAN: -Magnesium sulfate 2 gm IV x 1. -Monitor: signs, symptoms, disease progression, disease regression. -Evaluate: test results, medication effectiveness, response to treatment. Hypophosphataemia 12/16/2020 12/17/2020 Last Assessment & Plan: Assessment: Hypophosphatemia PLAN: -Sodium phosphate 30 mmol IV x 1. -Monitor: signs, symptoms, disease progression, disease regression. -Evaluate: test results, medication effectiveness, response to treatment. 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 coli) 021 12/17/2020 Last Assessment & Plan: Assessment: 12/17 patient is tachycardic, hypotensive, lactate elevated, given some pressors and fluid by Amet, Blood culture pending. 12/16 UA and Ucx grow GNB. Started on zosyn. PLAN: - Zosyn - Follow up culture - Keep Map >65, pressors as needed, currently on Levo Hemodynamic instability 12/17/2020 02/28/20 Last Assessment & Plan: Assessment: Likely urosepsis, on levo gtt PLAN: Keep Map >65, pressors as needed, currently on Levo Sepsis due to Gram-negative organism with septic shock 12/17/2020 12/22/2020 Last Assessment & Plan: Assessment: - Proteus identified in blood and urine, bourgeois-sensitive - Showed great improvement over the last 2 days - Now off pressors and extubated. PLAN: - Amikacin re-dosed 12/19. Continue zosyn - CT chest/abdomen/pelvis to assess for potential additional sources of infection was unremarkable. - Follow up C/S - Stress dose steroids Acute postoperative respiratory insufficiency 12/22/2020 Last Assessment & Plan: Assessment: - PTX on 12/18 CXR, s/p 14Fr pigtail. This has been repositioned as needed. - Currently extubated with adequate O2 saturations on room air PLAN: - Monitor respiratory status. - Will assess tpday for Pigtail removal BRITTANY (acute kidney injury) 12/17/20202020 Last Assessment & Plan: Assessment: - Resolving, likely prerenal versus less likely ATN given speed of improvement - Solute clearance appropriate - UOP good volume - New almanza inserted 12/17 PLAN: - Continue resuscitation - Trend CMP Delirium 12/16/2020 12/22/2020 Last Assessment & Plan: Delirium likely 2/2 infection. Geriatrics has been following PLAN: -- continue oxycodone 2.5-5mg every 4 hours as needed for pain (NGT) -- limit narcotic -- treat active infection/supportive care Hypomagnesemia 12/16/2020 12/17/2020 Last Assessment & Plan: Assessment: Hypomagnesemia PLAN: -Magnesium sulfate 2 gm IV x 1. -Monitor: signs, symptoms, disease progression, disease regression. -Evaluate: test results, medication effectiveness, response to treatment. Hypophosphataemia 12/16/2020 12/17/2020 Last Assessment & Plan: Assessment: Hypophosphatemia PLAN: -Sodium phosphate 30 mmol IV x 1. -Monitor: signs, symptoms, disease progression, disease regression. -Evaluate: test results, medication effectiveness, response to treatment. 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 coli) 021 12/17/2020 Last Assessment & Plan: Assessment: 12/17 patient is tachycardic, hypotensive, lactate elevated, given some pressors and fluid by Amet, Blood culture pending. 12/16 UA and Ucx grow GNB. Started on zosyn. PLAN: - Zosyn - Follow up culture - Keep Map >65, pressors as needed, currently on Levo Hemodynamic instability 12/17/2020 02/28/20 Last Assessment & Plan: Assessment: Likely urosepsis, on levo gtt PLAN: Keep Map >65, pressors as needed, currently on Levo Sepsis due to Gram-negative organism with septic shock 12/17/2020 12/22/2020 Last Assessment & Plan: Assessment: - Proteus identified in blood and urine, bourgeois-sensitive - Showed great improvement over the last 2 days - Now off pressors and extubated. PLAN: - Amikacin re-dosed 12/19. Continue zosyn - CT chest/abdomen/pelvis to assess for potential additional sources of infection was unremarkable. - Follow up C/S - Stress dose steroids Acute postoperative respiratory insufficiency 12/22/2020 Last Assessment & Plan: Assessment: - PTX on 12/18 CXR, s/p 14Fr pigtail. This has been repositioned as needed. - Currently extubated with adequate O2 saturations on room air PLAN: - Monitor respiratory status. - Will assess tpday for Pigtail removal BRITTANY (acute kidney injury) 12/17/20202020 Last Assessment & Plan: Assessment: - Resolving, likely prerenal versus less likely ATN given speed of improvement - Solute clearance appropriate - UOP good volume - New almanza inserted 12/17 PLAN: - Continue resuscitation - Trend CMP Delirium 12/16/2020 12/22/2020 Last Assessment & Plan: Delirium likely 2/2 infection. Geriatrics has been following PLAN: -- continue oxycodone 2.5-5mg every 4 hours as needed for pain (NGT) -- limit narcotic -- treat active infection/supportive care Hypomagnesemia 12/16/2020 12/17/2020 Last Assessment & Plan: Assessment: Hypomagnesemia PLAN: -Magnesium sulfate 2 gm IV x 1. -Monitor: signs, symptoms, disease progression, disease regression. -Evaluate: test results, medication effectiveness, response to treatment. Hypophosphataemia 12/16/2020 12/17/2020 Last Assessment & Plan: Assessment: Hypophosphatemia PLAN: -Sodium phosphate 30 mmol IV x 1. -Monitor: signs, symptoms, disease progression, disease regression. -Evaluate: test results, medication effectiveness, response to treatment. 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 coli) 021 12/17/2020 Last Assessment & Plan: Assessment: 12/17 patient is tachycardic, hypotensive, lactate elevated, given some pressors and fluid by Amet, Blood culture pending. 12/16 UA and Ucx grow GNB. Started on zosyn. PLAN: - Zosyn - Follow up culture - Keep Map >65, pressors as needed, currently on Levo Hemodynamic instability 12/17/2020 02/28/20 Last Assessment & Plan: Assessment: Likely urosepsis, on levo gtt PLAN: Keep Map >65, pressors as needed, currently on Levo Sepsis due to Gram-negative organism with septic shock 12/17/2020 12/22/2020 Last Assessment & Plan: Assessment: - Proteus identified in blood and urine, bourgeois-sensitive - Showed great improvement over the last 2 days - Now off pressors and extubated. PLAN: - Amikacin re-dosed 12/19. Continue zosyn - CT chest/abdomen/pelvis to assess for potential additional sources of infection was unremarkable. - Follow up C/S - Stress dose steroids Acute postoperative respiratory insufficiency 12/22/2020 Last Assessment & Plan: Assessment: - PTX on 12/18 CXR, s/p 14Fr pigtail. This has been repositioned as needed. - Currently extubated with adequate O2 saturations on room air PLAN: - Monitor respiratory status. - Will assess tpday for Pigtail removal BRITTANY (acute kidney injury) 12/17/20202020 Last Assessment & Plan: Assessment: - Resolving, likely prerenal versus less likely ATN given speed of improvement - Solute clearance appropriate - UOP good volume - New almanza inserted 12/17 PLAN: - Continue resuscitation - Trend CMP Delirium 12/16/2020 12/22/2020 Last Assessment & Plan: Delirium likely 2/2 infection. Geriatrics has been following PLAN: -- continue oxycodone 2.5-5mg every 4 hours as needed for pain (NGT) -- limit narcotic -- treat active infection/supportive care Hypomagnesemia 12/16/2020 12/17/2020 Last Assessment & Plan: Assessment: Hypomagnesemia PLAN: -Magnesium sulfate 2 gm IV x 1. -Monitor: signs, symptoms, disease progression, disease regression. -Evaluate: test results, medication effectiveness, response to treatment. Hypophosphataemia 12/16/2020 12/17/2020 Last Assessment & Plan: Assessment: Hypophosphatemia PLAN: -Sodium phosphate 30 mmol IV x 1. -Monitor: signs, symptoms, disease progression, disease regression. -Evaluate: test results, medication effectiveness, response to treatment. 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 coli) 021 12/17/2020 Last Assessment & Plan: Assessment: 12/17 patient is tachycardic, hypotensive, lactate elevated, given some pressors and fluid by Amet, Blood culture pending. 12/16 UA and Ucx grow GNB. Started on zosyn. PLAN: - Zosyn - Follow up culture - Keep Map >65, pressors as needed, currently on Levo Hemodynamic instability 12/17/2020 02/28/20 Last Assessment & Plan: Assessment: Likely urosepsis, on levo gtt PLAN: Keep Map >65, pressors as needed, currently on Levo Sepsis due to Gram-negative organism with septic shock 12/17/2020 12/22/2020 Last Assessment & Plan: Assessment: - Proteus identified in blood and urine, bourgeois-sensitive - Showed great improvement over the last 2 days - Now off pressors and extubated. PLAN: - Amikacin re-dosed 12/19. Continue zosyn - CT chest/abdomen/pelvis to assess for potential additional sources of infection was unremarkable. - Follow up C/S - Stress dose steroids Acute postoperative respiratory insufficiency 12/22/2020 Last Assessment & Plan: Assessment: - PTX on 12/18 CXR, s/p 14Fr pigtail. This has been repositioned as needed. - Currently extubated with adequate O2 saturations on room air PLAN: - Monitor respiratory status. - Will assess tpday for Pigtail removal BRITTANY (acute kidney injury) 12/17/20202020 Last Assessment & Plan: Assessment: - Resolving, likely prerenal versus less likely ATN given speed of improvement - Solute clearance appropriate - UOP good volume - New almanza inserted 12/17 PLAN: - Continue resuscitation - Trend CMP Delirium 12/16/2020 12/22/2020 Last Assessment & Plan: Delirium likely 2/2 infection. Geriatrics has been following PLAN: -- continue oxycodone 2.5-5mg every 4 hours as needed for pain (NGT) -- limit narcotic -- treat active infection/supportive care Hypomagnesemia 12/16/2020 12/17/2020 Last Assessment & Plan: Assessment: Hypomagnesemia PLAN: -Magnesium sulfate 2 gm IV x 1. -Monitor: signs, symptoms, disease progression, disease regression. -Evaluate: test results, medication effectiveness, response to treatment. Hypophosphataemia 12/16/2020 12/17/2020 Last Assessment & Plan: Assessment: Hypophosphatemia PLAN: -Sodium phosphate 30 mmol IV x 1. -Monitor: signs, symptoms, disease progression, disease regression. -Evaluate: test results, medication effectiveness, response to treatment. 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 coli) 021 12/17/2020 Last Assessment & Plan: Assessment: 12/17 patient is tachycardic, hypotensive, lactate elevated, given some pressors and fluid by Amet, Blood culture pending. 12/16 UA and Ucx grow GNB. Started on zosyn. PLAN: - Zosyn - Follow up culture - Keep Map >65, pressors as needed, currently on Levo Hemodynamic instability 12/17/2020 02/28/20 Last Assessment & Plan: Assessment: Likely urosepsis, on levo gtt PLAN: Keep Map >65, pressors as needed, currently on Levo Sepsis due to Gram-negative organism with septic shock 12/17/2020 12/22/2020 Last Assessment & Plan: Assessment: - Proteus identified in blood and urine, bourgeois-sensitive - Showed great improvement over the last 2 days - Now off pressors and extubated. PLAN: - Amikacin re-dosed 12/19. Continue zosyn - CT chest/abdomen/pelvis to assess for potential additional sources of infection was unremarkable. - Follow up C/S - Stress dose steroids Acute postoperative respiratory insufficiency 12/22/2020 Last Assessment & Plan: Assessment: - PTX on 12/18 CXR, s/p 14Fr pigtail. This has been repositioned as needed. - Currently extubated with adequate O2 saturations on room air PLAN: - Monitor respiratory status. - Will assess tpday for Pigtail removal BRITTANY (acute kidney injury) 12/17/20202020 Last Assessment & Plan: Assessment: - Resolving, likely prerenal versus less likely ATN given speed of improvement - Solute clearance appropriate - UOP good volume - New almanza inserted 12/17 PLAN: - Continue resuscitation - Trend CMP Delirium 12/16/2020 12/22/2020 Last Assessment & Plan: Delirium likely 2/2 infection. Geriatrics has been following PLAN: -- continue oxycodone 2.5-5mg every 4 hours as needed for pain (NGT) -- limit narcotic -- treat active infection/supportive care Hypomagnesemia 12/16/2020 12/17/2020 Last Assessment & Plan: Assessment: Hypomagnesemia PLAN: -Magnesium sulfate 2 gm IV x 1. -Monitor: signs, symptoms, disease progression, disease regression. -Evaluate: test results, medication effectiveness, response to treatment. Hypophosphataemia 12/16/2020 12/17/2020 Last Assessment & Plan: Assessment: Hypophosphatemia PLAN: -Sodium phosphate 30 mmol IV x 1. -Monitor: signs, symptoms, disease progression, disease regression. -Evaluate: test results, medication effectiveness, response to treatment. 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 coli) 021 12/17/2020 Last Assessment & Plan: Assessment: 12/17 patient is tachycardic, hypotensive, lactate elevated, given some pressors and fluid by Amet, Blood culture pending. 12/16 UA and Ucx grow GNB. Started on zosyn. PLAN: - Zosyn - Follow up culture - Keep Map >65, pressors as needed, currently on Levo Hemodynamic instability 12/17/2020 02/28/20 Last Assessment & Plan: Assessment: Likely urosepsis, on levo gtt PLAN: Keep Map >65, pressors as needed, currently on Levo Sepsis due to Gram-negative organism with septic shock 12/17/2020 12/22/2020 Last Assessment & Plan: Assessment: - Proteus identified in blood and urine, bourgeois-sensitive - Showed great improvement over the last 2 days - Now off pressors and extubated. PLAN: - Amikacin re-dosed 12/19. Continue zosyn - CT chest/abdomen/pelvis to assess for potential additional sources of infection was unremarkable. - Follow up C/S - Stress dose steroids Acute postoperative respiratory insufficiency 12/22/2020 Last Assessment & Plan: Assessment: - PTX on 12/18 CXR, s/p 14Fr pigtail. This has been repositioned as needed. - Currently extubated with adequate O2 saturations on room air PLAN: - Monitor respiratory status. - Will assess tpday for Pigtail removal BRITTANY (acute kidney injury) 12/17/20202020 Last Assessment & Plan: Assessment: - Resolving, likely prerenal versus less likely ATN given speed of improvement - Solute clearance appropriate - UOP good volume - New almanza inserted 12/17 PLAN: - Continue resuscitation - Trend CMP Delirium 12/16/2020 12/22/2020 Last Assessment & Plan: Delirium likely 2/2 infection. Geriatrics has been following PLAN: -- continue oxycodone 2.5-5mg every 4 hours as needed for pain (NGT) -- limit narcotic -- treat active infection/supportive care Hypomagnesemia 12/16/2020 12/17/2020 Last Assessment & Plan: Assessment: Hypomagnesemia PLAN: -Magnesium sulfate 2 gm IV x 1. -Monitor: signs, symptoms, disease progression, disease regression. -Evaluate: test results, medication effectiveness, response to treatment. Hypophosphataemia 12/16/2020 12/17/2020 Last Assessment & Plan: Assessment: Hypophosphatemia PLAN: -Sodium phosphate 30 mmol IV x 1. -Monitor: signs, symptoms, disease progression, disease regression. -Evaluate: test results, medication effectiveness, response to treatment. 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 coli) 021 12/17/2020 Last Assessment & Plan: Assessment: 12/17 patient is tachycardic, hypotensive, lactate elevated, given some pressors and fluid by Amet, Blood culture pending. 12/16 UA and Ucx grow GNB. Started on zosyn. PLAN: - Zosyn - Follow up culture - Keep Map >65, pressors as needed, currently on Levo Hemodynamic instability 12/17/2020 02/28/20 Last Assessment & Plan: Assessment: Likely urosepsis, on levo gtt PLAN: Keep Map >65, pressors as needed, currently on Levo Sepsis due to Gram-negative organism with septic shock 12/17/2020 12/22/2020 Last Assessment & Plan: Assessment: - Proteus identified in blood and urine, bourgeois-sensitive - Showed great improvement over the last 2 days - Now off pressors and extubated. PLAN: - Amikacin re-dosed 12/19. Continue zosyn - CT chest/abdomen/pelvis to assess for potential additional sources of infection was unremarkable. - Follow up C/S - Stress dose steroids Acute postoperative respiratory insufficiency 12/22/2020 Last Assessment & Plan: Assessment: - PTX on 12/18 CXR, s/p 14Fr pigtail. This has been repositioned as needed. - Currently extubated with adequate O2 saturations on room air PLAN: - Monitor respiratory status. - Will assess tpday for Pigtail removal BRITTANY (acute kidney injury) 12/17/20202020 Last Assessment & Plan: Assessment: - Resolving, likely prerenal versus less likely ATN given speed of improvement - Solute clearance appropriate - UOP good volume - New almanza inserted 12/17 PLAN: - Continue resuscitation - Trend CMP Delirium 12/16/2020 12/22/2020 Last Assessment & Plan: Delirium likely 2/2 infection. Geriatrics has been following PLAN: -- continue oxycodone 2.5-5mg every 4 hours as needed for pain (NGT) -- limit narcotic -- treat active infection/supportive care Hypomagnesemia 12/16/2020 12/17/2020 Last Assessment & Plan: Assessment: Hypomagnesemia PLAN: -Magnesium sulfate 2 gm IV x 1. -Monitor: signs, symptoms, disease progression, disease regression. -Evaluate: test results, medication effectiveness, response to treatment. Hypophosphataemia 12/16/2020 12/17/2020 Last Assessment & Plan: Assessment: Hypophosphatemia PLAN: -Sodium phosphate 30 mmol IV x 1. -Monitor: signs, symptoms, disease progression, disease regression. -Evaluate: test results, medication effectiveness, response to treatment. 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 coli) 021 12/17/2020 Last Assessment & Plan: Assessment: 12/17 patient is tachycardic, hypotensive, lactate elevated, given some pressors and fluid by Amet, Blood culture pending. 12/16 UA and Ucx grow GNB. Started on zosyn. PLAN: - Zosyn - Follow up culture - Keep Map >65, pressors as needed, currently on Levo Hemodynamic instability 12/17/2020 02/28/20 Last Assessment & Plan: Assessment: Likely urosepsis, on levo gtt PLAN: Keep Map >65, pressors as needed, currently on Levo Sepsis due to Gram-negative organism with septic shock 12/17/2020 12/22/2020 Last Assessment & Plan: Assessment: - Proteus identified in blood and urine, bourgeois-sensitive - Showed great improvement over the last 2 days - Now off pressors and extubated. PLAN: - Amikacin re-dosed 12/19. Continue zosyn - CT chest/abdomen/pelvis to assess for potential additional sources of infection was unremarkable. - Follow up C/S - Stress dose steroids Acute postoperative respiratory insufficiency 12/22/2020 Last Assessment & Plan: Assessment: - PTX on 12/18 CXR, s/p 14Fr pigtail. This has been repositioned as needed. - Currently extubated with adequate O2 saturations on room air PLAN: - Monitor respiratory status. - Will assess tpday for Pigtail removal BRITTANY (acute kidney injury) 12/17/20202020 Last Assessment & Plan: Assessment: - Resolving, likely prerenal versus less likely ATN given speed of improvement - Solute clearance appropriate - UOP good volume - New almanza inserted 12/17 PLAN: - Continue resuscitation - Trend CMP Delirium 12/16/2020 12/22/2020 Last Assessment & Plan: Delirium likely 2/2 infection. Geriatrics has been following PLAN: -- continue oxycodone 2.5-5mg every 4 hours as needed for pain (NGT) -- limit narcotic -- treat active infection/supportive care Hypomagnesemia 12/16/2020 12/17/2020 Last Assessment & Plan: Assessment: Hypomagnesemia PLAN: -Magnesium sulfate 2 gm IV x 1. -Monitor: signs, symptoms, disease progression, disease regression. -Evaluate: test results, medication effectiveness, response to treatment. Hypophosphataemia 12/16/2020 12/17/2020 Last Assessment & Plan: Assessment: Hypophosphatemia PLAN: -Sodium phosphate 30 mmol IV x 1. -Monitor: signs, symptoms, disease progression, disease regression. -Evaluate: test results, medication effectiveness, response to treatment. 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 coli) 021 12/17/2020 Last Assessment & Plan: Assessment: 12/17 patient is tachycardic, hypotensive, lactate elevated, given some pressors and fluid by Amet, Blood culture pending. 12/16 UA and Ucx grow GNB. Started on zosyn. PLAN: - Zosyn - Follow up culture - Keep Map >65, pressors as needed, currently on Levo Hemodynamic instability 12/17/2020 02/28/20 Last Assessment & Plan: Assessment: Likely urosepsis, on levo gtt PLAN: Keep Map >65, pressors as needed, currently on Levo Sepsis due to Gram-negative organism with septic shock 12/17/2020 12/22/2020 Last Assessment & Plan: Assessment: - Proteus identified in blood and urine, bourgeois-sensitive - Showed great improvement over the last 2 days - Now off pressors and extubated. PLAN: - Amikacin re-dosed 12/19. Continue zosyn - CT chest/abdomen/pelvis to assess for potential additional sources of infection was unremarkable. - Follow up C/S - Stress dose steroids Acute postoperative respiratory insufficiency 12/22/2020 Last Assessment & Plan: Assessment: - PTX on 12/18 CXR, s/p 14Fr pigtail. This has been repositioned as needed. - Currently extubated with adequate O2 saturations on room air PLAN: - Monitor respiratory status. - Will assess tpday for Pigtail removal BRITTANY (acute kidney injury) 12/17/20202020 Last Assessment & Plan: Assessment: - Resolving, likely prerenal versus less likely ATN given speed of improvement - Solute clearance appropriate - UOP good volume - New almanza inserted 12/17 PLAN: - Continue resuscitation - Trend CMP Delirium 12/16/2020 12/22/2020 Last Assessment & Plan: Delirium likely 2/2 infection. Geriatrics has been following PLAN: -- continue oxycodone 2.5-5mg every 4 hours as needed for pain (NGT) -- limit narcotic -- treat active infection/supportive care Hypomagnesemia 12/16/2020 12/17/2020 Last Assessment & Plan: Assessment: Hypomagnesemia PLAN: -Magnesium sulfate 2 gm IV x 1. -Monitor: signs, symptoms, disease progression, disease regression. -Evaluate: test results, medication effectiveness, response to treatment. Hypophosphataemia 12/16/2020 12/17/2020 Last Assessment & Plan: Assessment: Hypophosphatemia PLAN: -Sodium phosphate 30 mmol IV x 1. -Monitor: signs, symptoms, disease progression, disease regression. -Evaluate: test results, medication effectiveness, response to treatment. 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 coli) 021 12/17/2020 Last Assessment & Plan: Assessment: 12/17 patient is tachycardic, hypotensive, lactate elevated, given some pressors and fluid by Amet, Blood culture pending. 12/16 UA and Ucx grow GNB. Started on zosyn. PLAN: - Zosyn - Follow up culture - Keep Map >65, pressors as needed, currently on Levo Hemodynamic instability 12/17/2020 02/28/20 Last Assessment & Plan: Assessment: Likely urosepsis, on levo gtt PLAN: Keep Map >65, pressors as needed, currently on Levo Sepsis due to Gram-negative organism with septic shock 12/17/2020 12/22/2020 Last Assessment & Plan: Assessment: - Proteus identified in blood and urine, bourgeois-sensitive - Showed great improvement over the last 2 days - Now off pressors and extubated. PLAN: - Amikacin re-dosed 12/19. Continue zosyn - CT chest/abdomen/pelvis to assess for potential additional sources of infection was unremarkable. - Follow up C/S - Stress dose steroids Acute postoperative respiratory insufficiency 12/22/2020 Last Assessment & Plan: Assessment: - PTX on 12/18 CXR, s/p 14Fr pigtail. This has been repositioned as needed. - Currently extubated with adequate O2 saturations on room air PLAN: - Monitor respiratory status. - Will assess tpday for Pigtail removal BRITTANY (acute kidney injury) 12/17/20202020 Last Assessment & Plan: Assessment: - Resolving, likely prerenal versus less likely ATN given speed of improvement - Solute clearance appropriate - UOP good volume - New almanza inserted 12/17 PLAN: - Continue resuscitation - Trend CMP Delirium 12/16/2020 12/22/2020 Last Assessment & Plan: Delirium likely 2/2 infection. Geriatrics has been following PLAN: -- continue oxycodone 2.5-5mg every 4 hours as needed for pain (NGT) -- limit narcotic -- treat active infection/supportive care Hypomagnesemia 12/16/2020 12/17/2020 Last Assessment & Plan: Assessment: Hypomagnesemia PLAN: -Magnesium sulfate 2 gm IV x 1. -Monitor: signs, symptoms, disease progression, disease regression. -Evaluate: test results, medication effectiveness, response to treatment. Hypophosphataemia 12/16/2020 12/17/2020 Last Assessment & Plan: Assessment: Hypophosphatemia PLAN: -Sodium phosphate 30 mmol IV x 1. -Monitor: signs, symptoms, disease progression, disease regression. -Evaluate: test results, medication effectiveness, response to treatment. 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 coli) 021 12/17/2020 Last Assessment & Plan: Assessment: 12/17 patient is tachycardic, hypotensive, lactate elevated, given some pressors and fluid by Amet, Blood culture pending. 12/16 UA and Ucx grow GNB. Started on zosyn. PLAN: - Zosyn - Follow up culture - Keep Map >65, pressors as needed, currently on Levo Hemodynamic instability 12/17/2020 02/28/20 Last Assessment & Plan: Assessment: Likely urosepsis, on levo gtt PLAN: Keep Map >65, pressors as needed, currently on Levo Sepsis due to Gram-negative organism with septic shock 12/17/2020 12/22/2020 Last Assessment & Plan: Assessment: - Proteus identified in blood and urine, bourgeois-sensitive - Showed great improvement over the last 2 days - Now off pressors and extubated. PLAN: - Amikacin re-dosed 12/19. Continue zosyn - CT chest/abdomen/pelvis to assess for potential additional sources of infection was unremarkable. - Follow up C/S - Stress dose steroids Acute postoperative respiratory insufficiency 12/22/2020 Last Assessment & Plan: Assessment: - PTX on 12/18 CXR, s/p 14Fr pigtail. This has been repositioned as needed. - Currently extubated with adequate O2 saturations on room air PLAN: - Monitor respiratory status. - Will assess tpday for Pigtail removal BRITTANY (acute kidney injury) 12/17/20202020 Last Assessment & Plan: Assessment: - Resolving, likely prerenal versus less likely ATN given speed of improvement - Solute clearance appropriate - UOP good volume - New almanza inserted 12/17 PLAN: - Continue resuscitation - Trend CMP Delirium 12/16/2020 12/22/2020 Last Assessment & Plan: Delirium likely 2/2 infection. Geriatrics has been following PLAN: -- continue oxycodone 2.5-5mg every 4 hours as needed for pain (NGT) -- limit narcotic -- treat active infection/supportive care Hypomagnesemia 12/16/2020 12/17/2020 Last Assessment & Plan: Assessment: Hypomagnesemia PLAN: -Magnesium sulfate 2 gm IV x 1. -Monitor: signs, symptoms, disease progression, disease regression. -Evaluate: test results, medication effectiveness, response to treatment. Hypophosphataemia 12/16/2020 12/17/2020 Last Assessment & Plan: Assessment: Hypophosphatemia PLAN: -Sodium phosphate 30 mmol IV x 1. -Monitor: signs, symptoms, disease progression, disease regression. -Evaluate: test results, medication effectiveness, response to treatment. 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 coli) 021 12/17/2020 Last Assessment & Plan: Assessment: 12/17 patient is tachycardic, hypotensive, lactate elevated, given some pressors and fluid by Amet, Blood culture pending. 12/16 UA and Ucx grow GNB. Started on zosyn. PLAN: - Zosyn - Follow up culture - Keep Map >65, pressors as needed, currently on Levo Hemodynamic instability 12/17/2020 02/28/20 Last Assessment & Plan: Assessment: Likely urosepsis, on levo gtt PLAN: Keep Map >65, pressors as needed, currently on Levo Sepsis due to Gram-negative organism with septic shock 12/17/2020 12/22/2020 Last Assessment & Plan: Assessment: - Proteus identified in blood and urine, bourgeois-sensitive - Showed great improvement over the last 2 days - Now off pressors and extubated. PLAN: - Amikacin re-dosed 12/19. Continue zosyn - CT chest/abdomen/pelvis to assess for potential additional sources of infection was unremarkable. - Follow up C/S - Stress dose steroids Acute postoperative respiratory insufficiency 12/22/2020 Last Assessment & Plan: Assessment: - PTX on 12/18 CXR, s/p 14Fr pigtail. This has been repositioned as needed. - Currently extubated with adequate O2 saturations on room air PLAN: - Monitor respiratory status. - Will assess tpday for Pigtail removal BRITTANY (acute kidney injury) 12/17/20202020 Last Assessment & Plan: Assessment: - Resolving, likely prerenal versus less likely ATN given speed of improvement - Solute clearance appropriate - UOP good volume - New almanza inserted 12/17 PLAN: - Continue resuscitation - Trend CMP Delirium 12/16/2020 12/22/2020 Last Assessment & Plan: Delirium likely 2/2 infection. Geriatrics has been following PLAN: -- continue oxycodone 2.5-5mg every 4 hours as needed for pain (NGT) -- limit narcotic -- treat active infection/supportive care Hypomagnesemia 12/16/2020 12/17/2020 Last Assessment & Plan: Assessment: Hypomagnesemia PLAN: -Magnesium sulfate 2 gm IV x 1. -Monitor: signs, symptoms, disease progression, disease regression. -Evaluate: test results, medication effectiveness, response to treatment. Hypophosphataemia 12/16/2020 12/17/2020 Last Assessment & Plan: Assessment: Hypophosphatemia PLAN: -Sodium phosphate 30 mmol IV x 1. -Monitor: signs, symptoms, disease progression, disease regression. -Evaluate: test results, medication effectiveness, response to treatment. 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 coli) 021 12/17/2020 Last Assessment & Plan: Assessment: 12/17 patient is tachycardic, hypotensive, lactate elevated, given some pressors and fluid by Amet, Blood culture pending. 12/16 UA and Ucx grow GNB. Started on zosyn. PLAN: - Zosyn - Follow up culture - Keep Map >65, pressors as needed, currently on Levo Hemodynamic instability 12/17/2020 02/28/20 Last Assessment & Plan: Assessment: Likely urosepsis, on levo gtt PLAN: Keep Map >65, pressors as needed, currently on Levo Sepsis due to Gram-negative organism with septic shock 12/17/2020 12/22/2020 Last Assessment & Plan: Assessment: - Proteus identified in blood and urine, bourgeois-sensitive - Showed great improvement over the last 2 days - Now off pressors and extubated. PLAN: - Amikacin re-dosed 12/19. Continue zosyn - CT chest/abdomen/pelvis to assess for potential additional sources of infection was unremarkable. - Follow up C/S - Stress dose steroids Acute postoperative respiratory insufficiency 12/22/2020 Last Assessment & Plan: Assessment: - PTX on 12/18 CXR, s/p 14Fr pigtail. This has been repositioned as needed. - Currently extubated with adequate O2 saturations on room air PLAN: - Monitor respiratory status. - Will assess tpday for Pigtail removal BRITTANY (acute kidney injury) 12/17/20202020 Last Assessment & Plan: Assessment: - Resolving, likely prerenal versus less likely ATN given speed of improvement - Solute clearance appropriate - UOP good volume - New almanza inserted 12/17 PLAN: - Continue resuscitation - Trend CMP Delirium 12/16/2020 12/22/2020 Last Assessment & Plan: Delirium likely 2/2 infection. Geriatrics has been following PLAN: -- continue oxycodone 2.5-5mg every 4 hours as needed for pain (NGT) -- limit narcotic -- treat active infection/supportive care Hypomagnesemia 12/16/2020 12/17/2020 Last Assessment & Plan: Assessment: Hypomagnesemia PLAN: -Magnesium sulfate 2 gm IV x 1. -Monitor: signs, symptoms, disease progression, disease regression. -Evaluate: test results, medication effectiveness, response to treatment. Hypophosphataemia 12/16/2020 12/17/2020 Last Assessment & Plan: Assessment: Hypophosphatemia PLAN: -Sodium phosphate 30 mmol IV x 1. -Monitor: signs, symptoms, disease progression, disease regression. -Evaluate: test results, medication effectiveness, response to treatment. 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 coli) 021 12/17/2020 Last Assessment & Plan: Assessment: 12/17 patient is tachycardic, hypotensive, lactate elevated, given some pressors and fluid by Amet, Blood culture pending. 12/16 UA and Ucx grow GNB. Started on zosyn. PLAN: - Zosyn - Follow up culture - Keep Map >65, pressors as needed, currently on Levo Hemodynamic instability 12/17/2020 02/28/20 Last Assessment & Plan: Assessment: Likely urosepsis, on levo gtt PLAN: Keep Map >65, pressors as needed, currently on Levo Sepsis due to Gram-negative organism with septic shock 12/17/2020 12/22/2020 Last Assessment & Plan: Assessment: - Proteus identified in blood and urine, bourgeois-sensitive - Showed great improvement over the last 2 days - Now off pressors and extubated. PLAN: - Amikacin re-dosed 12/19. Continue zosyn - CT chest/abdomen/pelvis to assess for potential additional sources of infection was unremarkable. - Follow up C/S - Stress dose steroids Acute postoperative respiratory insufficiency 12/22/2020 Last Assessment & Plan: Assessment: - PTX on 12/18 CXR, s/p 14Fr pigtail. This has been repositioned as needed. - Currently extubated with adequate O2 saturations on room air PLAN: - Monitor respiratory status. - Will assess tpday for Pigtail removal BRITTANY (acute kidney injury) 12/17/20202020 Last Assessment & Plan: Assessment: - Resolving, likely prerenal versus less likely ATN given speed of improvement - Solute clearance appropriate - UOP good volume - New almanza inserted 12/17 PLAN: - Continue resuscitation - Trend CMP Delirium 12/16/2020 12/22/2020 Last Assessment & Plan: Delirium likely 2/2 infection. Geriatrics has been following PLAN: -- continue oxycodone 2.5-5mg every 4 hours as needed for pain (NGT) -- limit narcotic -- treat active infection/supportive care Hypomagnesemia 12/16/2020 12/17/2020 Last Assessment & Plan: Assessment: Hypomagnesemia PLAN: -Magnesium sulfate 2 gm IV x 1. -Monitor: signs, symptoms, disease progression, disease regression. -Evaluate: test results, medication effectiveness, response to treatment. Hypophosphataemia 12/16/2020 12/17/2020 Last Assessment & Plan: Assessment: Hypophosphatemia PLAN: -Sodium phosphate 30 mmol IV x 1. -Monitor: signs, symptoms, disease progression, disease regression. -Evaluate: test results, medication effectiveness, response to treatment. 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 coli) 021 12/17/2020 Last Assessment & Plan: Assessment: 12/17 patient is tachycardic, hypotensive, lactate elevated, given some pressors and fluid by Amet, Blood culture pending. 12/16 UA and Ucx grow GNB. Started on zosyn. PLAN: - Zosyn - Follow up culture - Keep Map >65, pressors as needed, currently on Levo Hemodynamic instability 12/17/2020 02/28/20 Last Assessment & Plan: Assessment: Likely urosepsis, on levo gtt PLAN: Keep Map >65, pressors as needed, currently on Levo Sepsis due to Gram-negative organism with septic shock 12/17/2020 12/22/2020 Last Assessment & Plan: Assessment: - Proteus identified in blood and urine, bourgeois-sensitive - Showed great improvement over the last 2 days - Now off pressors and extubated. PLAN: - Amikacin re-dosed 12/19. Continue zosyn - CT chest/abdomen/pelvis to assess for potential additional sources of infection was unremarkable. - Follow up C/S - Stress dose steroids Acute postoperative respiratory insufficiency 12/22/2020 Last Assessment & Plan: Assessment: - PTX on 12/18 CXR, s/p 14Fr pigtail. This has been repositioned as needed. - Currently extubated with adequate O2 saturations on room air PLAN: - Monitor respiratory status. - Will assess tpday for Pigtail removal BRITTANY (acute kidney injury) 12/17/20202020 Last Assessment & Plan: Assessment: - Resolving, likely prerenal versus less likely ATN given speed of improvement - Solute clearance appropriate - UOP good volume - New almanza inserted 12/17 PLAN: - Continue resuscitation - Trend CMP Delirium 12/16/2020 12/22/2020 Last Assessment & Plan: Delirium likely 2/2 infection. Geriatrics has been following PLAN: -- continue oxycodone 2.5-5mg every 4 hours as needed for pain (NGT) -- limit narcotic -- treat active infection/supportive care Hypomagnesemia 12/16/2020 12/17/2020 Last Assessment & Plan: Assessment: Hypomagnesemia PLAN: -Magnesium sulfate 2 gm IV x 1. -Monitor: signs, symptoms, disease progression, disease regression. -Evaluate: test results, medication effectiveness, response to treatment. Hypophosphataemia 12/16/2020 12/17/2020 Last Assessment & Plan: Assessment: Hypophosphatemia PLAN: -Sodium phosphate 30 mmol IV x 1. -Monitor: signs, symptoms, disease progression, disease regression. -Evaluate: test results, medication effectiveness, response to treatment. 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 coli) 021 12/17/2020 Last Assessment & Plan: Assessment: 12/17 patient is tachycardic, hypotensive, lactate elevated, given some pressors and fluid by Amet, Blood culture pending. 12/16 UA and Ucx grow GNB. Started on zosyn. PLAN: - Zosyn - Follow up culture - Keep Map >65, pressors as needed, currently on Levo Hemodynamic instability 12/17/2020 02/28/20 Last Assessment & Plan: Assessment: Likely urosepsis, on levo gtt PLAN: Keep Map >65, pressors as needed, currently on Levo Sepsis due to Gram-negative organism with septic shock 12/17/2020 12/22/2020 Last Assessment & Plan: Assessment: - Proteus identified in blood and urine, bourgeois-sensitive - Showed great improvement over the last 2 days - Now off pressors and extubated. PLAN: - Amikacin re-dosed 12/19. Continue zosyn - CT chest/abdomen/pelvis to assess for potential additional sources of infection was unremarkable. - Follow up C/S - Stress dose steroids Acute postoperative respiratory insufficiency 12/22/2020 Last Assessment & Plan: Assessment: - PTX on 12/18 CXR, s/p 14Fr pigtail. This has been repositioned as needed. - Currently extubated with adequate O2 saturations on room air PLAN: - Monitor respiratory status. - Will assess tpday for Pigtail removal BRITTANY (acute kidney injury) 12/17/20202020 Last Assessment & Plan: Assessment: - Resolving, likely prerenal versus less likely ATN given speed of improvement - Solute clearance appropriate - UOP good volume - New almanza inserted 12/17 PLAN: - Continue resuscitation - Trend CMP Delirium 12/16/2020 12/22/2020 Last Assessment & Plan: Delirium likely 2/2 infection. Geriatrics has been following PLAN: -- continue oxycodone 2.5-5mg every 4 hours as needed for pain (NGT) -- limit narcotic -- treat active infection/supportive care Hypomagnesemia 12/16/2020 12/17/2020 Last Assessment & Plan: Assessment: Hypomagnesemia PLAN: -Magnesium sulfate 2 gm IV x 1. -Monitor: signs, symptoms, disease progression, disease regression. -Evaluate: test results, medication effectiveness, response to treatment. Hypophosphataemia 12/16/2020 12/17/2020 Last Assessment & Plan: Assessment: Hypophosphatemia PLAN: -Sodium phosphate 30 mmol IV x 1. -Monitor: signs, symptoms, disease progression, disease regression. -Evaluate: test results, medication effectiveness, response to treatment. 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 coli) 021 12/17/2020 Last Assessment & Plan: Assessment: 12/17 patient is tachycardic, hypotensive, lactate elevated, given some pressors and fluid by Amet, Blood culture pending. 12/16 UA and Ucx grow GNB. Started on zosyn. PLAN: - Zosyn - Follow up culture - Keep Map >65, pressors as needed, currently on Levo Hemodynamic instability 12/17/2020 02/28/20 Last Assessment & Plan: Assessment: Likely urosepsis, on levo gtt PLAN: Keep Map >65, pressors as needed, currently on Levo Sepsis due to Gram-negative organism with septic shock 12/17/2020 12/22/2020 Last Assessment & Plan: Assessment: - Proteus identified in blood and urine, bourgeois-sensitive - Showed great improvement over the last 2 days - Now off pressors and extubated. PLAN: - Amikacin re-dosed 12/19. Continue zosyn - CT chest/abdomen/pelvis to assess for potential additional sources of infection was unremarkable. - Follow up C/S - Stress dose steroids Acute postoperative respiratory insufficiency 12/22/2020 Last Assessment & Plan: Assessment: - PTX on 12/18 CXR, s/p 14Fr pigtail. This has been repositioned as needed. - Currently extubated with adequate O2 saturations on room air PLAN: - Monitor respiratory status. - Will assess tpday for Pigtail removal BRITTANY (acute kidney injury) 12/17/20202020 Last Assessment & Plan: Assessment: - Resolving, likely prerenal versus less likely ATN given speed of improvement - Solute clearance appropriate - UOP good volume - New almanza inserted 12/17 PLAN: - Continue resuscitation - Trend CMP Delirium 12/16/2020 12/22/2020 Last Assessment & Plan: Delirium likely 2/2 infection. Geriatrics has been following PLAN: -- continue oxycodone 2.5-5mg every 4 hours as needed for pain (NGT) -- limit narcotic -- treat active infection/supportive care Hypomagnesemia 12/16/2020 12/17/2020 Last Assessment & Plan: Assessment: Hypomagnesemia PLAN: -Magnesium sulfate 2 gm IV x 1. -Monitor: signs, symptoms, disease progression, disease regression. -Evaluate: test results, medication effectiveness, response to treatment. Hypophosphataemia 12/16/2020 12/17/2020 Last Assessment & Plan: Assessment: Hypophosphatemia PLAN: -Sodium phosphate 30 mmol IV x 1. -Monitor: signs, symptoms, disease progression, disease regression. -Evaluate: test results, medication effectiveness, response to treatment. 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 coli) 021 12/17/2020 Last Assessment & Plan: Assessment: 12/17 patient is tachycardic, hypotensive, lactate elevated, given some pressors and fluid by Amet, Blood culture pending. 12/16 UA and Ucx grow GNB. Started on zosyn. PLAN: - Zosyn - Follow up culture - Keep Map >65, pressors as needed, currently on Levo Hemodynamic instability 12/17/2020 02/28/20 Last Assessment & Plan: Assessment: Likely urosepsis, on levo gtt PLAN: Keep Map >65, pressors as needed, currently on Levo Sepsis due to Gram-negative organism with septic shock 12/17/2020 12/22/2020 Last Assessment & Plan: Assessment: - Proteus identified in blood and urine, bourgeois-sensitive - Showed great improvement over the last 2 days - Now off pressors and extubated. PLAN: - Amikacin re-dosed 12/19. Continue zosyn - CT chest/abdomen/pelvis to assess for potential additional sources of infection was unremarkable. - Follow up C/S - Stress dose steroids Acute postoperative respiratory insufficiency 12/22/2020 Last Assessment & Plan: Assessment: - PTX on 12/18 CXR, s/p 14Fr pigtail. This has been repositioned as needed. - Currently extubated with adequate O2 saturations on room air PLAN: - Monitor respiratory status. - Will assess tpday for Pigtail removal BRITTANY (acute kidney injury) 12/17/20202020 Last Assessment & Plan: Assessment: - Resolving, likely prerenal versus less likely ATN given speed of improvement - Solute clearance appropriate - UOP good volume - New almanza inserted 12/17 PLAN: - Continue resuscitation - Trend CMP Delirium 12/16/2020 12/22/2020 Last Assessment & Plan: Delirium likely 2/2 infection. Geriatrics has been following PLAN: -- continue oxycodone 2.5-5mg every 4 hours as needed for pain (NGT) -- limit narcotic -- treat active infection/supportive care Hypomagnesemia 12/16/2020 12/17/2020 Last Assessment & Plan: Assessment: Hypomagnesemia PLAN: -Magnesium sulfate 2 gm IV x 1. -Monitor: signs, symptoms, disease progression, disease regression. -Evaluate: test results, medication effectiveness, response to treatment. Hypophosphataemia 12/16/2020 12/17/2020 Last Assessment & Plan: Assessment: Hypophosphatemia PLAN: -Sodium phosphate 30 mmol IV x 1. -Monitor: signs, symptoms, disease progression, disease regression. -Evaluate: test results, medication effectiveness, response to treatment. 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 coli) 021 12/17/2020 Last Assessment & Plan: Assessment: 12/17 patient is tachycardic, hypotensive, lactate elevated, given some pressors and fluid by Amet, Blood culture pending. 12/16 UA and Ucx grow GNB. Started on zosyn. PLAN: - Zosyn - Follow up culture - Keep Map >65, pressors as needed, currently on Levo Hemodynamic instability 12/17/2020 02/28/20 Last Assessment & Plan: Assessment: Likely urosepsis, on levo gtt PLAN: Keep Map >65, pressors as needed, currently on Levo Sepsis due to Gram-negative organism with septic shock 12/17/2020 12/22/2020 Last Assessment & Plan: Assessment: - Proteus identified in blood and urine, bourgeois-sensitive - Showed great improvement over the last 2 days - Now off pressors and extubated. PLAN: - Amikacin re-dosed 12/19. Continue zosyn - CT chest/abdomen/pelvis to assess for potential additional sources of infection was unremarkable. - Follow up C/S - Stress dose steroids Acute postoperative respiratory insufficiency 12/22/2020 Last Assessment & Plan: Assessment: - PTX on 12/18 CXR, s/p 14Fr pigtail. This has been repositioned as needed. - Currently extubated with adequate O2 saturations on room air PLAN: - Monitor respiratory status. - Will assess tpday for Pigtail removal BRITTANY (acute kidney injury) 12/17/20202020 Last Assessment & Plan: Assessment: - Resolving, likely prerenal versus less likely ATN given speed of improvement - Solute clearance appropriate - UOP good volume - New almanza inserted 12/17 PLAN: - Continue resuscitation - Trend CMP Delirium 12/16/2020 12/22/2020 Last Assessment & Plan: Delirium likely 2/2 infection. Geriatrics has been following PLAN: -- continue oxycodone 2.5-5mg every 4 hours as needed for pain (NGT) -- limit narcotic -- treat active infection/supportive care Hypomagnesemia 12/16/2020 12/17/2020 Last Assessment & Plan: Assessment: Hypomagnesemia PLAN: -Magnesium sulfate 2 gm IV x 1. -Monitor: signs, symptoms, disease progression, disease regression. -Evaluate: test results, medication effectiveness, response to treatment. Hypophosphataemia 12/16/2020 12/17/2020 Last Assessment & Plan: Assessment: Hypophosphatemia PLAN: -Sodium phosphate 30 mmol IV x 1. -Monitor: signs, symptoms, disease progression, disease regression. -Evaluate: test results, medication effectiveness, response to treatment. 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 coli) 021 12/17/2020 Last Assessment & Plan: Assessment: 12/17 patient is tachycardic, hypotensive, lactate elevated, given some pressors and fluid by Amet, Blood culture pending. 12/16 UA and Ucx grow GNB. Started on zosyn. PLAN: - Zosyn - Follow up culture - Keep Map >65, pressors as needed, currently on Levo Hemodynamic instability 12/17/2020 02/28/20 Last Assessment & Plan: Assessment: Likely urosepsis, on levo gtt PLAN: Keep Map >65, pressors as needed, currently on Levo Sepsis due to Gram-negative organism with septic shock 12/17/2020 12/22/2020 Last Assessment & Plan: Assessment: - Proteus identified in blood and urine, bourgeois-sensitive - Showed great improvement over the last 2 days - Now off pressors and extubated. PLAN: - Amikacin re-dosed 12/19. Continue zosyn - CT chest/abdomen/pelvis to assess for potential additional sources of infection was unremarkable. - Follow up C/S - Stress dose steroids Acute postoperative respiratory insufficiency 12/22/2020 Last Assessment & Plan: Assessment: - PTX on 12/18 CXR, s/p 14Fr pigtail. This has been repositioned as needed. - Currently extubated with adequate O2 saturations on room air PLAN: - Monitor respiratory status. - Will assess tpday for Pigtail removal BRITTANY (acute kidney injury) 12/17/20202020 Last Assessment & Plan: Assessment: - Resolving, likely prerenal versus less likely ATN given speed of improvement - Solute clearance appropriate - UOP good volume - New almanza inserted 12/17 PLAN: - Continue resuscitation - Trend CMP Delirium 12/16/2020 12/22/2020 Last Assessment & Plan: Delirium likely 2/2 infection. Geriatrics has been following PLAN: -- continue oxycodone 2.5-5mg every 4 hours as needed for pain (NGT) -- limit narcotic -- treat active infection/supportive care Hypomagnesemia 12/16/2020 12/17/2020 Last Assessment & Plan: Assessment: Hypomagnesemia PLAN: -Magnesium sulfate 2 gm IV x 1. -Monitor: signs, symptoms, disease progression, disease regression. -Evaluate: test results, medication effectiveness, response to treatment. Hypophosphataemia 12/16/2020 12/17/2020 Last Assessment & Plan: Assessment: Hypophosphatemia PLAN: -Sodium phosphate 30 mmol IV x 1. -Monitor: signs, symptoms, disease progression, disease regression. -Evaluate: test results, medication effectiveness, response to treatment. 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 coli) 021 12/17/2020 Last Assessment & Plan: Assessment: 12/17 patient is tachycardic, hypotensive, lactate elevated, given some pressors and fluid by Amet, Blood culture pending. 12/16 UA and Ucx grow GNB. Started on zosyn. PLAN: - Zosyn - Follow up culture - Keep Map >65, pressors as needed, currently on Levo Hemodynamic instability 12/17/2020 02/28/20 Last Assessment & Plan: Assessment: Likely urosepsis, on levo gtt PLAN: Keep Map >65, pressors as needed, currently on Levo Sepsis due to Gram-negative organism with septic shock 12/17/2020 12/22/2020 Last Assessment & Plan: Assessment: - Proteus identified in blood and urine, bourgeois-sensitive - Showed great improvement over the last 2 days - Now off pressors and extubated. PLAN: - Amikacin re-dosed 12/19. Continue zosyn - CT chest/abdomen/pelvis to assess for potential additional sources of infection was unremarkable. - Follow up C/S - Stress dose steroids Acute postoperative respiratory insufficiency 12/22/2020 Last Assessment & Plan: Assessment: - PTX on 12/18 CXR, s/p 14Fr pigtail. This has been repositioned as needed. - Currently extubated with adequate O2 saturations on room air PLAN: - Monitor respiratory status. - Will assess tpday for Pigtail removal BRITTANY (acute kidney injury) 12/17/20202020 Last Assessment & Plan: Assessment: - Resolving, likely prerenal versus less likely ATN given speed of improvement - Solute clearance appropriate - UOP good volume - New almanza inserted 12/17 PLAN: - Continue resuscitation - Trend CMP Delirium 12/16/2020 12/22/2020 Last Assessment & Plan: Delirium likely 2/2 infection. Geriatrics has been following PLAN: -- continue oxycodone 2.5-5mg every 4 hours as needed for pain (NGT) -- limit narcotic -- treat active infection/supportive care Hypomagnesemia 12/16/2020 12/17/2020 Last Assessment & Plan: Assessment: Hypomagnesemia PLAN: -Magnesium sulfate 2 gm IV x 1. -Monitor: signs, symptoms, disease progression, disease regression. -Evaluate: test results, medication effectiveness, response to treatment. Hypophosphataemia 12/16/2020 12/17/2020 Last Assessment & Plan: Assessment: Hypophosphatemia PLAN: -Sodium phosphate 30 mmol IV x 1. -Monitor: signs, symptoms, disease progression, disease regression. -Evaluate: test results, medication effectiveness, response to treatment. 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 coli) 021 12/17/2020 Last Assessment & Plan: Assessment: 12/17 patient is tachycardic, hypotensive, lactate elevated, given some pressors and fluid by Amet, Blood culture pending. 12/16 UA and Ucx grow GNB. Started on zosyn. PLAN: - Zosyn - Follow up culture - Keep Map >65, pressors as needed, currently on Levo Hemodynamic instability 12/17/2020 02/28/20 Last Assessment & Plan: Assessment: Likely urosepsis, on levo gtt PLAN: Keep Map >65, pressors as needed, currently on Levo Sepsis due to Gram-negative organism with septic shock 12/17/2020 12/22/2020 Last Assessment & Plan: Assessment: - Proteus identified in blood and urine, bourgeois-sensitive - Showed great improvement over the last 2 days - Now off pressors and extubated. PLAN: - Amikacin re-dosed 12/19. Continue zosyn - CT chest/abdomen/pelvis to assess for potential additional sources of infection was unremarkable. - Follow up C/S - Stress dose steroids Acute postoperative respiratory insufficiency 12/22/2020 Last Assessment & Plan: Assessment: - PTX on 12/18 CXR, s/p 14Fr pigtail. This has been repositioned as needed. - Currently extubated with adequate O2 saturations on room air PLAN: - Monitor respiratory status. - Will assess tpday for Pigtail removal BRITTANY (acute kidney injury) 12/17/20202020 Last Assessment & Plan: Assessment: - Resolving, likely prerenal versus less likely ATN given speed of improvement - Solute clearance appropriate - UOP good volume - New almanza inserted 12/17 PLAN: - Continue resuscitation - Trend CMP Delirium 12/16/2020 12/22/2020 Last Assessment & Plan: Delirium likely 2/2 infection. Geriatrics has been following PLAN: -- continue oxycodone 2.5-5mg every 4 hours as needed for pain (NGT) -- limit narcotic -- treat active infection/supportive care Hypomagnesemia 12/16/2020 12/17/2020 Last Assessment & Plan: Assessment: Hypomagnesemia PLAN: -Magnesium sulfate 2 gm IV x 1. -Monitor: signs, symptoms, disease progression, disease regression. -Evaluate: test results, medication effectiveness, response to treatment. Hypophosphataemia 12/16/2020 12/17/2020 Last Assessment & Plan: Assessment: Hypophosphatemia PLAN: -Sodium phosphate 30 mmol IV x 1. -Monitor: signs, symptoms, disease progression, disease regression. -Evaluate: test results, medication effectiveness, response to treatment. 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 Prostatocystitis 03/24/2009 08/13/2013 Duodenitis without mention of hemorrhage 009 09/05/2014 Acute gastritis without mention of hemorrhage 09/05/2014 Complete rupture of rotator cuff 11/30/2002 09/05/2014 documented as of this encounter (statuses as of 09/30/2022) [facility] note Author Danielle Houston [facility] September 28, 2023 11:54am Note Date/Time September 28, 2023 11 :54am [facility] Medical Records Department [address] [place] [address] Counseling Note - Pharmacy 09/28/23 1154 MR#: [id number] Acct: [id number] Name: JAVIER BOND Rep #:[id number] : 1940 82 From: Danielle Houston PCP: Dr. Francisco Bahena MD Status:ADM IN Location: [place] [address] Pharmacy [facility] has performed discharge medication reconciliation and counseling for this patient. 1. CEFDINIR 300MG PO BID X 12 DAYS The patient's discharge medication list was reviewed for discrepancies and discrepancies were resolved. The patient was counseled on the following discharge medications and changes in medications for homegoing were reviewed. The Reason for Use, instructions for use, and potential side effects were reviewed for all new medications. The patient's questions regarding all of their medications were answered. The patient was able to verbally demonstrate an understanding of their dischargemedications. Medications at Discharge Home Medications acetaminophen 500 mg tablet 500 mg PO PRN PRN Pain 04/03/17 finasteride 5 mg tablet 5 mg PO DAILY prostate 04/03/17 hydrochlorothiazide 12.5 mg capsule 12.5 mg PO DAILY diuretic 04/03/17 tamsulosin 0.4 mg capsule 0.4 mg PO DAILY prostate 04/03/17 doxycycline hyclate 20 mg tablet 20 mg PO BID infection 03/13/19 metronidazole 0.75 % topical cream 1 applic topical BID skin health 07/16/19 aspirin 81 mg tablet,delayed release (Rika Low Dose Aspirin) 81 mg PO DAILY heart health 01/28/21 trazodone 50 mg tablet 25 mg PO QHS sleep 01/28/21 multivitamin 1 tab PO DAILY vitamin 05/18/21 atorvastatin 10 mg tablet 1 tab PO QHS cholesterol 05/03/22 docusate sodium 250 mg capsule 250 mg PO BID infection 05/03/22 furosemide 40 mg tablet (Lasix) 20 mg PO PRN PRN Edema 05/03/22 pantoprazole 40 mg tablet,delayed release 40 mg PO DAILY reflux 05/03/22 d-mannose 1 ea PO DAILY 09/24/23 dupilumab 300 mg/2 mL subcutaneous pen injector (Dupixent) 300 mg subcut .every two weeks skin health 09/24/23 lisinopril 5 mg tablet 5 mg PO DAILY blood pressure 09/24/23 cefdinir 300 mg capsule 300 mg PO BID 12 days #24 caps 09/28/23 09/28/23 1154 <Electronically signed by Danielle Houston> Date _ Danielle Houston Cosigner Signature (if applicable): Date CC: ~ Signed [facility] Work Phone: Discharge summary Author Christoph Kilgore [facility] September 28, 2023 10:49am Note Date/Time September 28, 2023 10 :45am [facility] Medical Records Department [address] [place] [id number] Instructions for Home/Discharge Instructions 09/28/23 1045 MR#: [id number] Acct: [id number] Name: JAVIER BOND Rep #:[id number] : 1940 82 From: Christoph fofana MD PCP: Dr. Francisco Bahena MD Status:ADM IN Discharge Instructions Diet Discharge Diet: Low fat / Low cholesterol Activity Discharge Activity: Return to Normal Activity Dressing / Incision Call your doctor if you observe: Fever of 101 or Higher, Shortness of breath, Dizziness, Fainting spells, Swelling in the ankles, Chest pain and Increased palpitations (irregular heartbeat) Follow Up Care Test Results: Test results from this visit will be discussed in further detail at your follow- up appointment, if applicable. Discharge Plan Admission Admit Date/Time: 09/25/23 00:52 Attending Provider: Christoph Kilgore Primary Care Provider: Francisco Bahena Consulting Providers: Cesar Orona; Elyssa Enrique Discharge Orders/Prescriptions Prescriptions: New cefdinir 300 mg capsule 300 mg PO BID 12 Days Qty: 24 0RF Continued metronidazole 0.75 % cream 1 applic TOPICAL BID acetaminophen 500 MG tablet 500 mg PO PRN PRN (Reason: Pain) tamsulosin 0.4 MG capsule 0.4 mg PO DAILY Patient Comments: TAKE ONE CAPSULE BY MOUTH EVERY DAY hydrochlorothiazide 12.5 MG capsule 12.5 mg PO DAILY Patient Comments: finasteride 5 MG tablet 5 mg PO DAILY Patient Comments: TAKE 1 TABLET BY MOUTH EVERY DAY doxycycline hyclate 20 mg tablet 20 mg PO BID Patient Comments: Rx Instructions: takes at noon on Tue-Tue-Tue trazodone 50 mg tablet 25 mg PO QHS aspirin [Rika Low Dose Aspirin] 81 mg Tablet,Delayed Release (Dr/Ec) 81 mg PO DAILY multivitamin Tablet 1 tab PO DAILY atorvastatin 10 mg tablet 1 tab PO QHS Patient Comments: TAKE 1 TABLET BY MOUTH DAILY AT BEDTIME. FOR CHOLESTEROL furosemide [Lasix] 40 mg tablet 20 mg PO PRN PRN (Reason: Edema) pantoprazole 40 mg Tablet,Delayed Release (Dr/Ec) 40 mg PO DAILY docusate sodium 250 mg Capsule 250 mg PO BID lisinopril 5 mg tablet 5 mg PO DAILY d-mannose Powder 1 ea PO DAILY Rx Instructions: 1/4 teaspoon on cereal each am. Dupixent Pen 300 mg/2 mL pen injector 300 mg subcut .every two weeks Discontinued nitrofurantoin monohyd/m-cryst [Macrobid] 100 mg capsule 100 mg PO Q12H 5 Days Qty: 10 0RF Rx Instructions: must administer with a meal/food Referrals / Follow Up: Francisco Bahena MD [Primary Care Provider] - Within 1 Week Disposition Disposition (needs filled in before D/C Order can be placed): Home, Self Care 09/28/23 1049<Electronically signed by Christoph Kilgore MD>Christoph Kilgore MD CC: Dr. Cesar Orona DO; Dr. Francisco Bahena MD; Dr. Elyssa Enrique MD~ Signed [facility] Work Phone: Discharge summary Author Christoph Kilgore [facility] September 28, 2023 10:54am Note Date/Time September 28, 2023 10 :54am [facility] Medical Records Department [address] [place] [address] Discharge Summary 09/28/23 1049 MR#: [id number] Acct: [id number] Name: JAVIER BOND Rep #:[id number] : 1940 82 From: Christoph fofana MD PCP: Dr. Francisco Bahena MD Status:ADM IN Location: [place] [address] Providers Date of Admission: 09/25/23 Primary Care Physician: Dr. Francisco Bahena MD Reason For Visit: FEVER OF UNKNOWN ORIGIN, WEAKNESS Diagnosis Discharge Diagnosis (1) Sepsis without septic shock: Status: Acute Code(s): A41.9 - Sepsis, unspecified organism (2) Acute febrile illness: Status: Acute Code(s): R50.9 - Fever, unspecified (3) Weakness: Status: Acute Code(s): R53.1 - Weakness Medications at Discharge Home Medications acetaminophen 500 mg tablet 500 mg PO PRN PRN Pain 04/03/17 finasteride 5 mg tablet 5 mg PO DAILY 04/03/17 hydrochlorothiazide 12.5 mg capsule 12.5 mg PO DAILY 04/03/17 tamsulosin 0.4 mg capsule 0.4 mg PO DAILY 04/03/17 doxycycline hyclate 20 mg tablet 20 mg PO BID 03/13/19 metronidazole 0.75 % topical cream 1 applic topical BID 07/16/19 aspirin 81 mg tablet,delayed release (Rika Low Dose Aspirin) 81 mg PO DAILY 01/28/21 trazodone 50 mg tablet 25 mg PO QHS 01/28/21 multivitamin 1 tab PO DAILY 05/18/21 atorvastatin 10 mg tablet 1 tab PO QHS 05/03/22 docusate sodium 250 mg capsule 250 mg PO BID 05/03/22 furosemide 40 mg tablet (Lasix) 20 mg PO PRN PRN Edema 05/03/22 pantoprazole 40 mg tablet,delayed release 40 mg PO DAILY 05/03/22 d-mannose 1 ea PO DAILY 09/24/23 dupilumab 300 mg/2 mL subcutaneous pen injector (Dupixent) 300 mg subcut .every two weeks 09/24/23 lisinopril 5 mg tablet 5 mg PO DAILY 09/24/23 cefdinir 300 mg capsule 300 mg PO BID 12 days #24 caps 09/28/23 Hospital Course Operations None Procedures None Summary of Care Provided Minutes Spent on Discharge: 37 Hospital Course: Per HPI: JAVIER BOND, is a 82 M who presented to [facility] ED on 09/25/2023 with episodes of fevers and rigors at home. Patient seen at bedside in the ED, present. Patient was sitting up comfortably in bed, conversing normally, in no acute distress. Patient has history of kidney stoneswith frequent urinary tract infections, follows outpatient with urology. Was seen in the ED on 09/10/2023 with left lower quadrant abdominal pain. UA was consistent with infection, but CT abdomen pelvis showed no concern for kidney stones or for hydronephrosis. CT scan did show moderate degree of constipation. Patient was discharged home from the ED on Keflex and instructed to take stool softeners to assist with his constipation. Patient completed 10-day course of Keflex but continued to have left lower quadrant pain, so he had a UA checked byhis PCP office again around 3 to 4 days ago and it still appeared infectious. Patient was started on Macrobid at that time. Patient then developed subjectivefevers and rigors at home on the afternoon of 09/24. States he had several episodes of a significant degree of shaking, and also developed nausea with a few episodes of vomiting, so they called EMS to bring him to the ED. Since arrival to the ED, patient has continued to have some shaking/rigors. Patient currently does feel somewhat improved from arrival after receiving IV fluids anddoses of Zofran and Tylenol. However, patient still has significant shaking andsome associated lightheadedness and weakness with ambulation. 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 Since thattime, patient has had fairly persistent constipation and difficulty with stooling. Patient takes stool softeners at home, does not take MiraLAX or senna, does not use suppositories regularly. Does try to take in lots of fiber with his diet. Patient states that his bowel movements recently have been abouthis normal, meaning he has had fairly hard stools with a moderate amount of difficulty with expelling his stool. He notably denies any significant abdominal pain or tenderness during that time. His pain has consistently been in the left lower quadrant. Previously had a left inguinal hernia repair, but CT scans have been negative for recurrent hernia. Patient otherwise denies any acute concerns at this time. Hospital course: 1. E. coli bacteremia with debility and weakness/intermittent urinary retention?82-year-old male presents to the hospital with fevers and rigors at home. He was found to have 1 set of blood cultures come back positive for E. coli with resistance patterns similar to the UTI E. coli he had back in the middle of August. His states that a lot of his symptoms started around that UTI and have progressively gotten worse. It is likely that he developed bacteremia back in the middle of August that was masked by the antibiotics andthen progressively got worse. He was on Zosyn since admission and sensitivitiescame back and he is sensitive to Rocephin, he does have a rash allergy to fluoroquinolones therefore will discharge for another 12 days on cefdinir 300 mgp.o. twice daily. He is ambulatory around the room on his own with a walker so we will plan to discharge him home today. I discussed with him and his theplan for discharge and they both expressed understanding of the risk benefits ofgoing home and would like to go home today. Given his urinary retention I do recommend he follow-up with his own [facility] urologist on discharge. 2. Hypertension, hyperlipidemia, GERD, history of lumbar spine fusion after injury are all chronic medical conditions which complicate his care. His home medications were continued where appropriate Physical Exam Narrative General: Alert, Oriented x3, Cooperative, No apparent distress HEENT: Atraumatic, PERRLA, EOMI, Normocephalic Oral: Moist Mucosa Neck: Supple, No JVD Lungs: Diminished, Normal air movement, No rhonchi, No wheeze, No rales Cardiovascular: Regular rate, Regular Rhythm, Normal S1, Normal S2, No murmurs Abdomen: Soft, Non Tender, Non-Distended, No Hepato-splenomegaly Extremities: No edema, Capillary Refill Less than 3 Seconds Skin: No rashes, No breakdown Musculoskeletal: No Tenderness to Palpation of Joints or Extremities Neurological: Cranial nerves II-XII grossly intact, Motor Exam 5/5 strength throughout, Sensory exam intact to light touch and pain Psych/Mental Status: Normal Affect, Appropriate Weight / BMI Weight Weight: 164 lb 3.91 oz Body Mass Index (BMI) 22.8 ABG / Lab / Microbiology Data 09/28/23 05:26 09/28/23 05:26 Laboratory: Laboratory Results - last 24 hr 09/28/23 05:26: WBC 4.9, RBC 3.40 L, Hgb 10.3 L, Hct 33.1 L, MCV 97.4 H, MCH 30.3, MCHC 31.1 L, RDW Std Deviation 46.9 H, RDW Coeff of Ezequiel 13.1, Plt Count 134 L, MPV 9.5, Immature Gran % (Auto) 0.200, Neut % (Auto) 66.0, Lymph % (Auto)20.8, [place] % (Auto) 10.5 H, Eos % (Auto) 2.1, Baso % (Auto) 0.4, Absolute Neuts (auto) 3.2, Absolute Lymphs (auto) 1.01, Nucleated RBC % 0, Sodium 139, Potassium 3.7, Chloride 110 H, Carbon Dioxide 26.0, Anion Gap 3 L, BUN 16, Creatinine 0.86, Estim Creat Clear Calc 72.19, Est GFR (MDRD) Af Amer 111, Est GFR (MDRD) Non-Af 91, BUN/Creatinine Ratio 18.7, Glucose 91, Calcium 8.3 L Microbiology: Microbiology 09/24/23 23:55 Blood Culture (Wb) - Anticubital Left Blood Culture - Final Escherichia coli 09/24/23 00:20 Blood Culture (Wb) - Anticubital Left Blood Culture - Preliminary No growth in 48 hours. 09/25/23 05:45 Mucosa - Nasopharyngeal Respiratory Panel (PCR) - Final 09/24/23 21:00 Nasal Secretion SARS-CoV-2 & FLU Antigen (Rapid) - Final D/C Instructions Discharge Diet: Low fat / Low cholesterol Call your doctor if you observe: Fever of 101 or Higher, Shortness of breath, Dizziness, Fainting spells, Swelling in the ankles, Chest pain and Increased palpitations (irregular heartbeat) Meaningful Use Info Meaningful Use Diagnoses (Choose all that apply): None applicable Discharge Plan Admission Admit Date/Time: 09/25/23 00:52 Attending Provider: Christoph Kilgore Primary Care Provider: Francisco Bahena Consulting Providers: Cesar Orona; Elyssa Enrique Discharge Orders/Prescriptions Prescriptions: New cefdinir 300 mg capsule 300 mg PO BID 12 Days Qty: 24 0RF Continued metronidazole 0.75 % cream 1 applic TOPICAL BID acetaminophen 500 MG tablet 500 mg PO PRN PRN (Reason: Pain) tamsulosin 0.4 MG capsule 0.4 mg PO DAILY Patient Comments: TAKE ONE CAPSULE BY MOUTH EVERY DAY hydrochlorothiazide 12.5 MG capsule 12.5 mg PO DAILY Patient Comments: finasteride 5 MG tablet 5 mg PO DAILY Patient Comments: TAKE 1 TABLET BY MOUTH EVERY DAY doxycycline hyclate 20 mg tablet 20 mg PO BID Patient Comments: Rx Instructions: takes at noon on Tue-Tue-Tue trazodone 50 mg tablet 25 mg PO QHS aspirin [Rika Low Dose Aspirin] 81 mg Tablet,Delayed Release (Dr/Ec) 81 mg PO DAILY multivitamin Tablet 1 tab PO DAILY atorvastatin 10 mg tablet 1 tab PO QHS Patient Comments: TAKE 1 TABLET BY MOUTH DAILY AT BEDTIME. FOR CHOLESTEROL furosemide [Lasix] 40 mg tablet 20 mg PO PRN PRN (Reason: Edema) pantoprazole 40 mg Tablet,Delayed Release (Dr/Ec) 40 mg PO DAILY docusate sodium 250 mg Capsule 250 mg PO BID lisinopril 5 mg tablet 5 mg PO DAILY d-mannose Powder 1 ea PO DAILY Rx Instructions: 1/4 teaspoon on cereal each am. Dupixent Pen 300 mg/2 mL pen injector 300 mg subcut .every two weeks Discontinued nitrofurantoin monohyd/m-cryst [Macrobid] 100 mg capsule 100 mg PO Q12H 5 Days Qty: 10 0RF Rx Instructions: must administer with a meal/food Referrals / Follow Up: Francisco Bahena MD [Primary Care Provider] - Within 1 Week Disposition Disposition (needs filled in before D/C Order can be placed): Home, Self Care Charges/Coding Visit Charges Inpatient E&M: 88242 Disch Hosp >30min 09/28/23 1054 <Electronically signed by Christoph Kilgore MD> Cosigner Signature (if applicable): CC: Dr. Francisco Bahena MD; Dr. Christoph Kilgore MD~ Signed [facility] Work Phone: evaluation note* Diagnosis Lower abdominal pain Abdominal pain, other specified site Left lower quadrant abdominal pain documented in this encounter [facility] note* Diagnosis Acquired spondylolisthesis- Primary S/P lumbar fusion Arthrodesis status Degenerative scoliosis documented in this encounter [facility] note* Diagnosis Nephrolithiasis- Primary Calculus of kidney Screening for genitourinary condition Screening for other and unspecified genitourinary condition BPH with obstruction/lower urinary tract symptoms Hypertrophy of prostate with urinary obstruction and other lower urinary tract symptoms (LUTS) documented in this encounter [facility] note* Diagnosis Bilateral swelling of feet and ankles documented in this encounter [facility] noteNo assessment information availableWAshtab[facility] Work Phone: Evaluation note* Diagnosis Peripheral edema- Primary Edema documented in this encounter [facility] note* Diagnosis Bilateral swelling of feet and ankles documented in this encounter [facility] note* Diagnosis Gastroesophageal reflux disease, unspecified whether esophagitis present- Primary LUQ pain Abdominal pain, left upper quadrant Hiatal hernia Diaphragmatic hernia without mention of obstruction or gangrene documented in this encounter [facility] note* Diagnosis Preoperative testing- Primary Preoperative examination, unspecified Preop cardiovascular exam Pre-operative cardiovascular examination 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 Encounter for other preprocedural examination 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 documented in this encounter [facility] note* Diagnosis Preoperative testing Preoperative examination, unspecified 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 documented in this encounter [facility] note* Diagnosis Preoperative testing Preoperative examination, unspecified 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 documented in this encounter [facility] note* Diagnosis Preoperative testing Preoperative examination, unspecified 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 documented in this encounter [facility] note* Diagnosis Pre-operative examination- Primary Preoperative examination, unspecified Essential hypertension, benign Gastroesophageal reflux disease, unspecified whether esophagitis present Hiatal hernia Diaphragmatic hernia without mention of obstruction or gangrene Osteoporosis, unspecified osteoporosis type, unspecified pathological fracture presence Peripheral edema Edema 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 Situational anxiety Other anxiety states 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 spondylosis without myelopathy Bilateral carotid artery stenosis Occlusion and stenosis of carotid artery without mention of cerebral infarction 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 and other lower urinary tract symptoms (LUTS) Thyroid nodule Nontoxic uninodular goiter 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 [facility] Preop cardiovascular exam Pre-operative cardiovascular examination Encounter for other preprocedural examination 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 [facility] Diagnosis Recurrent UTI- Primary Urinary tract infection, site not specified [facility] Diagnosis Recurrent [facility]TI Urinary tract infection, site not specified [facility] Preoperative testing- Primary [facility]operative examination, unspecified [facility] Diagnosis Acquired spondylolisthesis- Primary S/P lumbar fusion Arthrodesis status Degenerative scoliosis [facility] Diagnosis Esophageal diverticulum- Primary 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 [facility] Diagnosis Dysphagia, unspecified type- Primary [facility] Diagnosis D[facility]agia, unspecified type [facility] Diagnosis Recurrent UTI- Primary Urinary tract infection, site not specified BPH with obstruction/lower urinary tract symptoms Hypertrophy of prostate with urinary obstruction and other lower urinary tract symptoms (LUTS) Nephrolithiasis Calculus of kidney [facility] Diagnosis Bilateral swelling of feet and ankles [facility] Diagnosis Vocal cord paralysis- Primary Paralysis of vocal cords or larynx, unspecified [facility] Diagnosis Bilateral swelling of feet and ankles [facility] Diagnosis Vocal cord paresis- Primary Paralysis of vocal cords or larynx, unspecified [facility]* Diagnosis Medicare annual wellness visit, subsequent- Primary Routine general medical examination at a [facility] care facility Essential hypertension, benign Elevated blood sugar Other abnormal glucose Bilateral carotid artery stenosis Occlusion and stenosis of carotid artery without mention of cerebral infarction Thyroid nodule Nontoxic uninodular goiter Situational depression Adjustment disorder with depressed mood Situational anxiety Other anxiety states Gastroesophageal reflux disease, unspecified whether esophagitis present 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 and other lower urinary tract symptoms (LUTS) Unstable gait Abnormality of gait 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 Anemia due to other cause, not classified Memory difficulties Memory loss Medication management Encounter for long-term (current) use of other medications Advance directive discussed with patient Other specified counseling 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 Spinal stenosis, lumbar region, without neurogenic claudication [facility] Diagnosis Memory change- Primary [facility] loss [facility] Diagnosis Pruritus- Primary Unspecified pruritic disorder [facility] Diagnosis Dysphagia, unspecified type- Primary [facility] Diagnosis Recurrent UTI- Primary Urinary tract infection, site not specified Screening for genitourinary condition Screening for other and unspecified genitourinary condition BPH with obstruction/lower urinary tract symptoms Hypertrophy of prostate with urinary obstruction and other lower urinary tract symptoms (LUTS) Incomplete bladder emptying [facility] Diagnosis Pruritic disorder- Primary Unspecified pruritic disorder [facility] Diagnosis Abnormal SPEP- Primary Other nonspecific findings on examination of blood Itchy skin Unspecified pruritic disorder [facility] Diagnosis Urinary urgency- Primary Urgency of urination Feeling of incomplete bladder emptying Incomplete bladder emptying [facility] Diagnosis 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 loss- Primary Iron deficiency anemia secondary to blood loss (chronic) [facility] Diagnosis 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 loss- Primary Iron deficiency anemia secondary to blood loss (chronic) [facility] Diagnosis BPH with obstruction/lower urinary tract symptoms- Primary Hypertrophy of prostate with urinary obstruction and other lower urinary tract symptoms (LUTS) Iron deficiency anemia, unspecified iron deficiency anemia type [facility] Diagnosis BPH with urinary obstruction- Primary Hypertrophy of prostate with urinary obstruction and other lower urinary tract symptoms (LUTS) 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 and other lower urinary tract symptoms (LUTS) [facility] Diagnosis 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 and other lower urinary tract symptoms (LUTS) [facility] Diagnosis 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 and other lower urinary tract symptoms (LUTS) [facility] Diagnosis 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 and other lower urinary tract symptoms (LUTS) [facility] Diagnosis 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 and other lower urinary tract symptoms (LUTS) [facility] Diagnosis Pre-operative examination- Primary Preoperative examination, unspecified Bilateral carotid artery stenosis Occlusion and stenosis of carotid artery without mention of cerebral infarction Essential hypertension, benign Gastroesophageal reflux disease, unspecified whether esophagitis present 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 loss Iron deficiency anemia secondary to blood loss (chronic) Peripheral edema Edema 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 Situational anxiety Other anxiety states Thyroid nodule 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 spondylosis without myelopathy Osteoporosis, unspecified osteoporosis type, unspecified pathological fracture presence Cognitive impairment Unspecified persistent mental disorders due to conditions classified elsewhere 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 and other lower urinary tract symptoms (LUTS) Abnormal SPEP Other nonspecific findings on examination of blood Urinary tract infection without hematuria, site unspecified 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 and other lower urinary tract symptoms (LUTS) [facility] Diagnosis Prostate disorder- Primary Unspecified disorder of prostate [facility] Diagnosis BPH with obstruction/lower urinary tract symptoms- Primary Hypertrophy of prostate with urinary obstruction and other lower urinary tract symptoms (LUTS) Gross hematuria [facility] Diagnosis Prostate disorder- Primary Unspecified disorder of prostate [facility] Diagnosis Monoclonal gammopathy- Primary Monoclonal paraproteinemia Anemia, unspecified type [facility] Diagnosis Essential hypertension, benign- Primary Elevated blood sugar Other abnormal glucose 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 loss Iron deficiency anemia secondary to blood loss (chronic) Chronic neck pain Cervicalgia Lumbar back pain Lumbago Encounter for lipid screening for cardiovascular disease Screening for lipoid disorders Unstable gait Abnormality of gait Chronic constipation Unspecified constipation Gastroesophageal reflux disease, unspecified whether esophagitis present Anemia due to other cause, not classified Fatigue, unspecified type Need for vaccination Need for prophylactic vaccination and inoculation against unspecified single disease [facility] Diagnosis Chronic neck pain- Primary Cervicalgia Unstable gait Abnormality of gait Lumbar back pain Lumbago [facility] Diagnosis Recurrent UTI- Primary Urinary tract infection, site not specified Incomplete bladder emptying BPH with obstruction/lower urinary tract symptoms Hypertrophy of prostate with urinary obstruction and other lower urinary tract symptoms (LUTS) [facility] Diagnosis Cervical spondylosis without myelopathy- Primary Lumbar spondylosis Lumbosacral spondylosis without myelopathy Lumbar radiculopathy Thoracic or lumbosacral neuritis or radiculitis, unspecified Hereditary and idiopathic peripheral neuropathy Unspecified hereditary and idiopathic peripheral neuropathy [facility] Diagnosis Cervical spondylosis without myelopathy- Primary [facility] Diagnosis Cervical spondylosis without myelopathy- Primary [facility] Diagnosis Cervical spondylosis without myelopathy- Primary [facility] Diagnosis Cervical spondylosis without myelopathy- Primary [facility] Diagnosis Cervical spondylosis without myelopathy- Primary [facility] Diagnosis Cervical spondylosis without myelopathy [facility] Diagnosis Degenerative scoliosis in adult patient [facility] Diagnosis S/P lumbar fusion Arthrodesis status [facility] Diagnosis Left lower quadrant abdominal pain- Primary [facility] Diagnosis Abdominal pain, left lower quadrant- Primary Generalized abdominal pain Abdominal pain, generalized [facility] Diagnosis Abdominal pain, left lower quadrant Generalized abdominal pain Abdominal pain, generalized [facility] Diagnosis Onset Date Resolution Status Acute febrile illness acute Acute UTI acute Near syncope acute Vomiting acute [facility] Work Phone: Evaluation note* Diagnosis Onset Date Resolution Status Acute febrile illness acute Acute UTI acute Near syncope acute Sepsis without septic shock acute Vomiting acute Weakness acute [facility] Work Phone: Evaluation note* Diagnosis Complicated UTI (urinary tract infection) Urinary tract infection, site not specified documented in this encounter [facility] note* Diagnosis Anemia, chronic disease- Primary Anemia of other chronic disease LLQ pain Abdominal pain, left lower quadrant [facility] Diagnosis Complicated UTI (urinary tract infection)- Primary Urinary tract infection, site not specified Left nephrolithiasis documented in this encounter [facility] note* Diagnosis Memory deficits Memory loss [facility] Diagnosis Memory deficits Memory loss Dementia without behavioral disturbance (HCC) Dementia, unspecified, without behavioral disturbance [facility]* Diagnosis Cervical spondylosis without myelopathy- Primary [facility] Diagnosis Recurrent UTI- Primary Urinary tract infection, site not specified [facility] Diagnosis Thyroid nodule Nontoxic uninodular goiter [facility] Diagnosis Bilateral carotid artery stenosis Occlusion and stenosis of carotid artery without mention of cerebral infarction [facility] Diagnosis Thyroid nodule Nontoxic uninodular goiter [facility] Diagnosis Diarrhea, unspecified type- Primary Dark stools Nonspecific abnormal finding in stool contents documented in this encounter [facility] note* Diagnosis Other secondary kyphosis, thoracic region- Primary Scoliosis of lumbar spine, unspecified scoliosis type Scoliosis of lumbar spine, unspecified scoliosis type [facility] Diagnosis Scoliosis of lumbar spine, unspecified scoliosis type [facility] Diagnosis Recurrent UTI- Primary Urinary tract infection, site not specified Incomplete bladder emptying [facility] Diagnosis Degenerative lumbar spinal stenosis- Primary Spinal stenosis, lumbar region, without neurogenic claudication Degenerative scoliosis Acute postoperative pain Other acute postoperative pain S/P lumbar spinal fusion Arthrodesis status Sepsis due to Escherichia coli with acute organ dysfunction and septic shock, unspecified type Essential hypertension, benign Urinary tract infection associated with indwelling urethral catheter, sequela Sepsis due to Gram-negative organism with septic shock ([facility]) Septicemia due to gram-negative organism, unspecified Acute blood loss anemia Acute posthemorrhagic anemia Spontaneous pneumothorax Other pneumothorax Severe protein-calorie malnutrition (HCC) Other severe protein-calorie malnutrition Acute postoperative respiratory insufficiency Other pulmonary insufficiency, not elsewhere classified, following trauma and surgery Delirium Other alteration of consciousness Hemodynamic instability Other symptoms involving cardiovascular system Oropharyngeal dysphagia Dysphagia, oropharyngeal phase Thrombocytopenia Thrombocytopenia, unspecified Delirium Other alteration of consciousness Hypomagnesemia Disorders of magnesium metabolism Hypophosphataemia Sepsis due to Escherichia coli (E. coli) ([facility]) Septicemia due to Escherichia coli (E. 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 Essential hypertension, benign 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 and other lower urinary tract symptoms (LUTS) 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 Compression fracture of L3 vertebra, sequela Osteoporosis, unspecified osteoporosis type, unspecified pathological fracture presence Chronic constipation Unspecified constipation Benign intracranial hypertension Situational anxiety Other anxiety states Thyroid nodule Nontoxic uninodular goiter Bilateral carotid artery stenosis Occlusion and stenosis of carotid artery without mention of cerebral infarction Pre-operative examination- Primary Preoperative examination, unspecified Nephrolithiasis Calculus of kidney Benign intracranial hypertension Episodic cluster headache, 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 Essential hypertension, benign Oropharyngeal dysphagia Dysphagia, oropharyngeal phase Gastroesophageal reflux disease, unspecified whether esophagitis present 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 and other lower urinary tract symptoms (LUTS) Urinary tract infection associated with indwelling urethral catheter, sequela Nontoxic single thyroid nodule Nontoxic uninodular goiter Acute blood loss anemia Acute posthemorrhagic anemia 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 Compression fracture of L3 vertebra, sequela Osteoporosis, unspecified osteoporosis type, unspecified pathological fracture presence Degenerative scoliosis Situational anxiety Other anxiety states Bilateral carotid artery stenosis Occlusion and stenosis of carotid artery without mention of cerebral infarction Pre-operative examination- Primary Preoperative examination, unspecified Essential hypertension, benign Gastroesophageal reflux disease, unspecified whether esophagitis present Hiatal hernia Diaphragmatic hernia without mention of obstruction or gangrene Osteoporosis, unspecified osteoporosis type, unspecified pathological fracture presence Peripheral edema Edema 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 Situational anxiety Other anxiety states 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 spondylosis without myelopathy Bilateral carotid artery stenosis Occlusion and stenosis of carotid artery without mention of cerebral infarction 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 and other lower urinary tract symptoms (LUTS) Thyroid nodule Nontoxic uninodular goiter Pre-operative examination- Primary Preoperative examination, unspecified Bilateral carotid artery stenosis Occlusion and stenosis of carotid artery without mention of cerebral infarction Essential hypertension, benign Gastroesophageal reflux disease, unspecified whether esophagitis present 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 loss Iron deficiency anemia secondary to blood loss (chronic) Peripheral edema Edema 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 Situational anxiety Other anxiety states Thyroid nodule 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 spondylosis without myelopathy Osteoporosis, unspecified osteoporosis type, unspecified pathological fracture presence Cognitive impairment Unspecified persistent mental disorders due to conditions classified elsewhere 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 and other lower urinary tract symptoms (LUTS) Abnormal SPEP Other nonspecific findings on examination of blood Urinary tract infection without hematuria, site unspecified Nightmares- Primary Other dysfunctions of sleep stages or arousal from sleep Dementia without behavioral disturbance (HCC) Dementia, unspecified, without behavioral disturbance Situational depression Adjustment disorder with depressed mood [facility] Diagnosis Degenerative lumbar spinal stenosis- Primary Spinal stenosis, lumbar region, without neurogenic claudication Degenerative scoliosis Acute postoperative pain Other acute postoperative pain S/P lumbar spinal fusion Arthrodesis status Sepsis due to Escherichia coli with acute organ dysfunction and septic shock, unspecified type Essential hypertension, benign Urinary tract infection associated with indwelling urethral catheter, sequela Sepsis due to Gram-negative organism with septic shock (HCC) Septicemia due to gram-negative organism, unspecified Acute blood loss anemia Acute posthemorrhagic anemia Spontaneous pneumothorax Other pneumothorax Severe protein-calorie malnutrition (HCC) Other severe protein-calorie malnutrition Acute postoperative respiratory insufficiency Other pulmonary insufficiency, not elsewhere classified, following trauma and surgery Delirium Other alteration of consciousness Hemodynamic instability Other symptoms involving cardiovascular system Oropharyngeal dysphagia Dysphagia, oropharyngeal phase Thrombocytopenia Thrombocytopenia, unspecified Delirium Other alteration of consciousness Hypomagnesemia Disorders of magnesium metabolism Hypophosphataemia Sepsis due to Escherichia coli (E. coli) ([facility]) Septicemia due to Escherichia coli (E. 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 Essential hypertension, benign 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 and other lower urinary tract symptoms (LUTS) 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 Compression fracture of L3 vertebra, sequela Osteoporosis, unspecified osteoporosis type, unspecified pathological fracture presence Chronic constipation Unspecified constipation Benign intracranial hypertension Situational anxiety Other anxiety states Thyroid nodule Nontoxic uninodular goiter Bilateral carotid artery stenosis Occlusion and stenosis of carotid artery without mention of cerebral infarction Pre-operative examination- Primary Preoperative examination, unspecified Nephrolithiasis Calculus of kidney Benign intracranial hypertension Episodic cluster headache, 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 Essential hypertension, benign Oropharyngeal dysphagia Dysphagia, oropharyngeal phase Gastroesophageal reflux disease, unspecified whether esophagitis present 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 and other lower urinary tract symptoms (LUTS) Urinary tract infection associated with indwelling urethral catheter, sequela Nontoxic single thyroid nodule Nontoxic uninodular goiter Acute blood loss anemia Acute posthemorrhagic anemia 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 Compression fracture of L3 vertebra, sequela Osteoporosis, unspecified osteoporosis type, unspecified pathological fracture presence Degenerative scoliosis Situational anxiety Other anxiety states Bilateral carotid artery stenosis Occlusion and stenosis of carotid artery without mention of cerebral infarction Pre-operative examination- Primary Preoperative examination, unspecified Essential hypertension, benign Gastroesophageal reflux disease, unspecified whether esophagitis present Hiatal hernia Diaphragmatic hernia without mention of obstruction or gangrene Osteoporosis, unspecified osteoporosis type, unspecified pathological fracture presence Peripheral edema Edema 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 Situational anxiety Other anxiety states 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 spondylosis without myelopathy Bilateral carotid artery stenosis Occlusion and stenosis of carotid artery without mention of cerebral infarction 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 and other lower urinary tract symptoms (LUTS) Thyroid nodule Nontoxic uninodular goiter Pre-operative examination- Primary Preoperative examination, unspecified Bilateral carotid artery stenosis Occlusion and stenosis of carotid artery without mention of cerebral infarction Essential hypertension, benign Gastroesophageal reflux disease, unspecified whether esophagitis present 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 loss Iron deficiency anemia secondary to blood loss (chronic) Peripheral edema Edema 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 Situational anxiety Other anxiety states Thyroid nodule 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 spondylosis without myelopathy Osteoporosis, unspecified osteoporosis type, unspecified pathological fracture presence Cognitive impairment Unspecified persistent mental disorders due to conditions classified elsewhere 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 and other lower urinary tract symptoms (LUTS) Abnormal SPEP Other nonspecific findings on examination of blood Urinary tract infection without hematuria, site unspecified Degenerative lumbar spinal stenosis- Primary Spinal stenosis, lumbar region, without neurogenic claudication Weakness of both lower extremities Encounter for immunization Need for other specified prophylactic vaccination against single bacterial disease Pain in both hands Numbness and tingling of both legs Disturbance of skin sensation [facility] Diagnosis Degenerative lumbar spinal stenosis- Primary Spinal stenosis, lumbar region, without neurogenic claudication Degenerative scoliosis Acute postoperative pain Other acute postoperative pain S/P lumbar spinal fusion Arthrodesis status Sepsis due to Escherichia coli with acute organ dysfunction and septic shock, unspecified type Essential hypertension, benign Urinary tract infection associated with indwelling urethral catheter, sequela Sepsis due to Gram-negative organism with septic shock (HCC) Septicemia due to gram-negative organism, unspecified Acute blood loss anemia Acute posthemorrhagic anemia Spontaneous pneumothorax Other pneumothorax Severe protein-calorie malnutrition (HCC) Other severe protein-calorie malnutrition Acute postoperative respiratory insufficiency Other pulmonary insufficiency, not elsewhere classified, following trauma and surgery Delirium Other alteration of consciousness Hemodynamic instability Other symptoms involving cardiovascular system Oropharyngeal dysphagia Dysphagia, oropharyngeal phase Thrombocytopenia Thrombocytopenia, unspecified Delirium Other alteration of consciousness Hypomagnesemia Disorders of magnesium metabolism Hypophosphataemia Sepsis due to Escherichia coli (E. coli) (HCC) Septicemia due to Escherichia coli (E. 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 Essential hypertension, benign 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 and other lower urinary tract symptoms (LUTS) 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 Compression fracture of L3 vertebra, sequela Osteoporosis, unspecified osteoporosis type, unspecified pathological fracture presence Chronic constipation Unspecified constipation Benign intracranial hypertension Situational anxiety Other anxiety states Thyroid nodule Nontoxic uninodular goiter Bilateral carotid artery stenosis Occlusion and stenosis of carotid artery without mention of cerebral infarction Pre-operative examination- Primary Preoperative examination, unspecified Nephrolithiasis Calculus of kidney Benign intracranial hypertension Episodic cluster headache, 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 Essential hypertension, benign Oropharyngeal dysphagia Dysphagia, oropharyngeal phase Gastroesophageal reflux disease, unspecified whether esophagitis present 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 and other lower urinary tract symptoms (LUTS) Urinary tract infection associated with indwelling urethral catheter, sequela Nontoxic single thyroid nodule Nontoxic uninodular goiter Acute blood loss anemia Acute posthemorrhagic anemia 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 Compression fracture of L3 vertebra, sequela Osteoporosis, unspecified osteoporosis type, unspecified pathological fracture presence Degenerative scoliosis Situational anxiety Other anxiety states Bilateral carotid artery stenosis Occlusion and stenosis of carotid artery without mention of cerebral infarction Pre-operative examination- Primary Preoperative examination, unspecified Essential hypertension, benign Gastroesophageal reflux disease, unspecified whether esophagitis present Hiatal hernia Diaphragmatic hernia without mention of obstruction or gangrene Osteoporosis, unspecified osteoporosis type, unspecified pathological fracture presence Peripheral edema Edema 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 Situational anxiety Other anxiety states 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 spondylosis without myelopathy Bilateral carotid artery stenosis Occlusion and stenosis of carotid artery without mention of cerebral infarction 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 and other lower urinary tract symptoms (LUTS) Thyroid nodule Nontoxic uninodular goiter Pre-operative examination- Primary Preoperative examination, unspecified Bilateral carotid artery stenosis Occlusion and stenosis of carotid artery without mention of cerebral infarction Essential hypertension, benign Gastroesophageal reflux disease, unspecified whether esophagitis present 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 loss Iron deficiency anemia secondary to blood loss (chronic) Peripheral edema Edema 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 Situational anxiety Other anxiety states Thyroid nodule 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 spondylosis without myelopathy Osteoporosis, unspecified osteoporosis type, unspecified pathological fracture presence Cognitive impairment Unspecified persistent mental disorders due to conditions classified elsewhere 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 and other lower urinary tract symptoms (LUTS) Abnormal SPEP Other nonspecific findings on examination of blood Urinary tract infection without hematuria, site unspecified Pain in both hands [facility] Diagnosis Degenerative lumbar spinal stenosis- Primary Spinal stenosis, lumbar region, without neurogenic claudication Degenerative scoliosis Acute postoperative pain Other acute postoperative pain S/P lumbar spinal fusion Arthrodesis status Sepsis due to Escherichia coli with acute organ dysfunction and septic shock, unspecified type Essential hypertension, benign Urinary tract infection associated with indwelling urethral catheter, sequela Sepsis due to Gram-negative organism with septic shock (HCC) Septicemia due to gram-negative organism, unspecified Acute blood loss anemia Acute posthemorrhagic anemia Spontaneous pneumothorax Other pneumothorax Severe protein-calorie malnutrition (HCC) Other severe protein-calorie malnutrition Acute postoperative respiratory insufficiency Other pulmonary insufficiency, not elsewhere classified, following trauma and surgery Delirium Other alteration of consciousness Hemodynamic instability Other symptoms involving cardiovascular system Oropharyngeal dysphagia Dysphagia, oropharyngeal phase Thrombocytopenia Thrombocytopenia, unspecified Delirium Other alteration of consciousness Hypomagnesemia Disorders of magnesium metabolism Hypophosphataemia Sepsis due to Escherichia coli (E. coli) (HCC) Septicemia due to Escherichia coli (E. 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 Essential hypertension, benign 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 and other lower urinary tract symptoms (LUTS) 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 Compression fracture of L3 vertebra, sequela Osteoporosis, unspecified osteoporosis type, unspecified pathological fracture presence Chronic constipation Unspecified constipation Benign intracranial hypertension Situational anxiety Other anxiety states Thyroid nodule Nontoxic uninodular goiter Bilateral carotid artery stenosis Occlusion and stenosis of carotid artery without mention of cerebral infarction Pre-operative examination- Primary Preoperative examination, unspecified Nephrolithiasis Calculus of kidney Benign intracranial hypertension Episodic cluster headache, 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 Essential hypertension, benign Oropharyngeal dysphagia Dysphagia, oropharyngeal phase Gastroesophageal reflux disease, unspecified whether esophagitis present 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 and other lower urinary tract symptoms (LUTS) Urinary tract infection associated with indwelling urethral catheter, sequela Nontoxic single thyroid nodule Nontoxic uninodular goiter Acute blood loss anemia Acute posthemorrhagic anemia 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 Compression fracture of L3 vertebra, sequela Osteoporosis, unspecified osteoporosis type, unspecified pathological fracture presence Degenerative scoliosis Situational anxiety Other anxiety states Bilateral carotid artery stenosis Occlusion and stenosis of carotid artery without mention of cerebral infarction Pre-operative examination- Primary Preoperative examination, unspecified Essential hypertension, benign Gastroesophageal reflux disease, unspecified whether esophagitis present Hiatal hernia Diaphragmatic hernia without mention of obstruction or gangrene Osteoporosis, unspecified osteoporosis type, unspecified pathological fracture presence Peripheral edema Edema 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 Situational anxiety Other anxiety states 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 spondylosis without myelopathy Bilateral carotid artery stenosis Occlusion and stenosis of carotid artery without mention of cerebral infarction 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 and other lower urinary tract symptoms (LUTS) Thyroid nodule Nontoxic uninodular goiter Pre-operative examination- Primary Preoperative examination, unspecified Bilateral carotid artery stenosis Occlusion and stenosis of carotid artery without mention of cerebral infarction Essential hypertension, benign Gastroesophageal reflux disease, unspecified whether esophagitis present 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 loss Iron deficiency anemia secondary to blood loss (chronic) Peripheral edema Edema 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 Situational anxiety Other anxiety states Thyroid nodule 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 spondylosis without myelopathy Osteoporosis, unspecified osteoporosis type, unspecified pathological fracture presence Cognitive impairment Unspecified persistent mental disorders due to conditions classified elsewhere 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 and other lower urinary tract symptoms (LUTS) Abnormal SPEP Other nonspecific findings on examination of blood Urinary tract infection without hematuria, site unspecified Pain in both hands- [facility] Diagnosis Degenerative lumbar spinal stenosis- Primary Spinal stenosis, lumbar region, without neurogenic claudication Degenerative scoliosis Acute postoperative pain Other acute postoperative pain S/P lumbar spinal fusion Arthrodesis status Sepsis due to Escherichia coli with acute organ dysfunction and septic shock, unspecified type Essential hypertension, benign Urinary tract infection associated with indwelling urethral catheter, sequela Sepsis due to Gram-negative organism with septic shock (HCC) Septicemia due to gram-negative organism, unspecified Acute blood loss anemia Acute posthemorrhagic anemia Spontaneous pneumothorax Other pneumothorax Severe protein-calorie malnutrition (HCC) Other severe protein-calorie malnutrition Acute postoperative respiratory insufficiency Other pulmonary insufficiency, not elsewhere classified, following trauma and surgery Delirium Other alteration of consciousness Hemodynamic instability Other symptoms involving cardiovascular system Oropharyngeal dysphagia Dysphagia, oropharyngeal phase Thrombocytopenia Thrombocytopenia, unspecified Delirium Other alteration of consciousness Hypomagnesemia Disorders of magnesium metabolism Hypophosphataemia Sepsis due to Escherichia coli (E. coli) ([facility]) Septicemia due to Escherichia coli (E. 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 Essential hypertension, benign 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 and other lower urinary tract symptoms (LUTS) 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 Compression fracture of L3 vertebra, sequela Osteoporosis, unspecified osteoporosis type, unspecified pathological fracture presence Chronic constipation Unspecified constipation Benign intracranial hypertension Situational anxiety Other anxiety states Thyroid nodule Nontoxic uninodular goiter Bilateral carotid artery stenosis Occlusion and stenosis of carotid artery without mention of cerebral infarction Pre-operative examination- Primary Preoperative examination, unspecified Nephrolithiasis Calculus of kidney Benign intracranial hypertension Episodic cluster headache, 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 Essential hypertension, benign Oropharyngeal dysphagia Dysphagia, oropharyngeal phase Gastroesophageal reflux disease, unspecified whether esophagitis present 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 and other lower urinary tract symptoms (LUTS) Urinary tract infection associated with indwelling urethral catheter, sequela Nontoxic single thyroid nodule Nontoxic uninodular goiter Acute blood loss anemia Acute posthemorrhagic anemia 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 Compression fracture of L3 vertebra, sequela Osteoporosis, unspecified osteoporosis type, unspecified pathological fracture presence Degenerative scoliosis Situational anxiety Other anxiety states Bilateral carotid artery stenosis Occlusion and stenosis of carotid artery without mention of cerebral infarction Pain in pelvis Pre-operative examination- Primary Preoperative examination, unspecified Essential hypertension, benign Gastroesophageal reflux disease, unspecified whether esophagitis present Hiatal hernia Diaphragmatic hernia without mention of obstruction or gangrene Osteoporosis, unspecified osteoporosis type, unspecified pathological fracture presence Peripheral edema Edema 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 Situational anxiety Other anxiety states 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 spondylosis without myelopathy Bilateral carotid artery stenosis Occlusion and stenosis of carotid artery without mention of cerebral infarction 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 and other lower urinary tract symptoms (LUTS) Thyroid nodule Nontoxic uninodular goiter Pre-operative examination- Primary Preoperative examination, unspecified Bilateral carotid artery stenosis Occlusion and stenosis of carotid artery without mention of cerebral infarction Essential hypertension, benign Gastroesophageal reflux disease, unspecified whether esophagitis present 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 loss Iron deficiency anemia secondary to blood loss (chronic) Peripheral edema Edema 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 Situational anxiety Other anxiety states Thyroid nodule 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 spondylosis without myelopathy Osteoporosis, unspecified osteoporosis type, unspecified pathological fracture presence Cognitive impairment Unspecified persistent mental disorders due to conditions classified elsewhere 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 and other lower urinary tract symptoms (LUTS) Abnormal SPEP Other nonspecific findings on examination of blood Urinary tract infection without hematuria, site unspecified [facility] Diagnosis Degenerative lumbar spinal stenosis- Primary Spinal stenosis, lumbar region, without neurogenic claudication Degenerative scoliosis Acute postoperative pain Other acute postoperative pain S/P lumbar spinal fusion Arthrodesis status Sepsis due to Escherichia coli with acute organ dysfunction and septic shock, unspecified type Essential hypertension, benign Urinary tract infection associated with indwelling urethral catheter, sequela Sepsis due to Gram-negative organism with septic shock (HCC) Septicemia due to gram-negative organism, unspecified Acute blood loss anemia Acute posthemorrhagic anemia Spontaneous pneumothorax Other pneumothorax Severe protein-calorie malnutrition (HCC) Other severe protein-calorie malnutrition Acute postoperative respiratory insufficiency Other pulmonary insufficiency, not elsewhere classified, following trauma and surgery Delirium Other alteration of consciousness Hemodynamic instability Other symptoms involving cardiovascular system Oropharyngeal dysphagia Dysphagia, oropharyngeal phase Thrombocytopenia Thrombocytopenia, unspecified Delirium Other alteration of consciousness Hypomagnesemia Disorders of magnesium metabolism Hypophosphataemia Sepsis due to Escherichia coli (E. coli) ([facility]) Septicemia due to Escherichia coli (E. 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 Essential hypertension, benign 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 and other lower urinary tract symptoms (LUTS) 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 Compression fracture of L3 vertebra, sequela Osteoporosis, unspecified osteoporosis type, unspecified pathological fracture presence Chronic constipation Unspecified constipation Benign intracranial hypertension Situational anxiety Other anxiety states Thyroid nodule Nontoxic uninodular goiter Bilateral carotid artery stenosis Occlusion and stenosis of carotid artery without mention of cerebral infarction Pre-operative examination- Primary Preoperative examination, unspecified Nephrolithiasis Calculus of kidney Benign intracranial hypertension Episodic cluster headache, 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 Essential hypertension, benign Oropharyngeal dysphagia Dysphagia, oropharyngeal phase Gastroesophageal reflux disease, unspecified whether esophagitis present 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 and other lower urinary tract symptoms (LUTS) Urinary tract infection associated with indwelling urethral catheter, sequela Nontoxic single thyroid nodule Nontoxic uninodular goiter Acute blood loss anemia Acute posthemorrhagic anemia 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 Compression fracture of L3 vertebra, sequela Osteoporosis, unspecified osteoporosis type, unspecified pathological fracture presence Degenerative scoliosis Situational anxiety Other anxiety states Bilateral carotid artery stenosis Occlusion and stenosis of carotid artery without mention of cerebral infarction Pre-operative examination- Primary Preoperative examination, unspecified Essential hypertension, benign Gastroesophageal reflux disease, unspecified whether esophagitis present Hiatal hernia Diaphragmatic hernia without mention of obstruction or gangrene Osteoporosis, unspecified osteoporosis type, unspecified pathological fracture presence Peripheral edema Edema 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 Situational anxiety Other anxiety states 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 spondylosis without myelopathy Bilateral carotid artery stenosis Occlusion and stenosis of carotid artery without mention of cerebral infarction 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 and other lower urinary tract symptoms (LUTS) Thyroid nodule Nontoxic uninodular goiter Pre-operative examination- Primary Preoperative examination, unspecified Bilateral carotid artery stenosis Occlusion and stenosis of carotid artery without mention of cerebral infarction Essential hypertension, benign Gastroesophageal reflux disease, unspecified whether esophagitis present 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 loss Iron deficiency anemia secondary to blood loss (chronic) Peripheral edema Edema 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 Situational anxiety Other anxiety states Thyroid nodule 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 spondylosis without myelopathy Osteoporosis, unspecified osteoporosis type, unspecified pathological fracture presence Cognitive impairment Unspecified persistent mental disorders due to conditions classified elsewhere 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 and other lower urinary tract symptoms (LUTS) Abnormal SPEP Other nonspecific findings on examination of blood Urinary tract infection without hematuria, site unspecified Gastroesophageal reflux disease, unspecified whether esophagitis present- Primary Pain in both hands Essential tremor Essential and other specified forms of tremor Essential hypertension, benign Lumbar radiculopathy Thoracic or lumbosacral neuritis or radiculitis, unspecified Chronic LLQ pain Abdominal pain, left lower quadrant 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 and other lower urinary tract symptoms (LUTS) Anemia, chronic disease Anemia of other chronic disease Elevated blood sugar Other abnormal glucose Primary osteoarthritis of both first carpometacarpal joints Primary localized osteoarthrosis, hand Situational depression Adjustment disorder with depressed mood Dementia without behavioral disturbance (HCC) Dementia, unspecified, without behavioral disturbance ED (erectile dysfunction) of organic origin Impotence of organic origin Unstable gait Abnormality of gait 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 Seasonal allergies Allergic rhinitis, cause unspecified Left upper quadrant abdominal pain Allergic to IV contrast Allergy, unspecified not elsewhere classified [facility] Degenerative lumbar spinal stenosis- Primary Spinal stenosis, lumbar region, without neurogenic claudication Degenerative scoliosis Acute postoperative pain Other acute postoperative pain S/P lumbar spinal fusion Arthrodesis status Sepsis due to Escherichia coli with acute organ dysfunction and septic shock, unspecified type Essential hypertension, benign Urinary tract infection associated with indwelling urethral catheter, sequela Sepsis due to Gram-negative organism with septic shock (HCC) Septicemia due to gram-negative organism, unspecified Acute blood loss anemia Acute posthemorrhagic anemia Spontaneous pneumothorax Other pneumothorax Severe protein-calorie malnutrition (HCC) Other severe protein-calorie malnutrition Acute postoperative respiratory insufficiency Other pulmonary insufficiency, not elsewhere classified, following trauma and surgery Delirium Other alteration of consciousness Hemodynamic instability Other symptoms involving cardiovascular system Oropharyngeal dysphagia Dysphagia, oropharyngeal phase Thrombocytopenia Thrombocytopenia, unspecified Delirium Other alteration of consciousness Hypomagnesemia Disorders of magnesium metabolism Hypophosphataemia Sepsis due to Escherichia coli (E. coli) ([facility]) Septicemia due to Escherichia coli (E. 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 Essential hypertension, benign 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 and other lower urinary tract symptoms (LUTS) 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 Compression fracture of L3 vertebra, sequela Osteoporosis, unspecified osteoporosis type, unspecified pathological fracture presence Chronic constipation Unspecified constipation Benign intracranial hypertension Situational anxiety Other anxiety states Thyroid nodule Nontoxic uninodular goiter Bilateral carotid artery stenosis Occlusion and stenosis of carotid artery without mention of cerebral infarction Pre-operative examination- Primary Preoperative examination, unspecified Nephrolithiasis Calculus of kidney Benign intracranial hypertension Episodic cluster headache, 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 Essential hypertension, benign Oropharyngeal dysphagia Dysphagia, oropharyngeal phase Gastroesophageal reflux disease, unspecified whether esophagitis present 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 and other lower urinary tract symptoms (LUTS) Urinary tract infection associated with indwelling urethral catheter, sequela Nontoxic single thyroid nodule Nontoxic uninodular goiter Acute blood loss anemia Acute posthemorrhagic anemia 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 Compression fracture of L3 vertebra, sequela Osteoporosis, unspecified osteoporosis type, unspecified pathological fracture presence Degenerative scoliosis Situational anxiety Other anxiety states Bilateral carotid artery stenosis Occlusion and stenosis of carotid artery without mention of cerebral infarction Pre-operative examination- Primary Preoperative examination, unspecified Essential hypertension, benign Gastroesophageal reflux disease, unspecified whether esophagitis present Hiatal hernia Diaphragmatic hernia without mention of obstruction or gangrene Osteoporosis, unspecified osteoporosis type, unspecified pathological fracture presence Peripheral edema Edema 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 Situational anxiety Other anxiety states 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 spondylosis without myelopathy Bilateral carotid artery stenosis Occlusion and stenosis of carotid artery without mention of cerebral infarction 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 and other lower urinary tract symptoms (LUTS) Thyroid nodule Nontoxic uninodular goiter Pre-operative examination- Primary Preoperative examination, unspecified Bilateral carotid artery stenosis Occlusion and stenosis of carotid artery without mention of cerebral infarction Essential hypertension, benign Gastroesophageal reflux disease, unspecified whether esophagitis present 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 loss Iron deficiency anemia secondary to blood loss (chronic) Peripheral edema Edema 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 Situational anxiety Other anxiety states Thyroid nodule 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 spondylosis without myelopathy Osteoporosis, unspecified osteoporosis type, unspecified pathological fracture presence Cognitive impairment Unspecified persistent mental disorders due to conditions classified elsewhere 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 and other lower urinary tract symptoms (LUTS) Abnormal SPEP Other nonspecific findings on examination of blood Urinary tract infection without hematuria, site unspecified Allergic to IV contrast Allergy, unspecified not elsewhere classified [facility] Diagnosis Degenerative lumbar spinal stenosis- Primary Spinal stenosis, lumbar region, without neurogenic claudication Degenerative scoliosis Acute postoperative pain Other acute postoperative pain S/P lumbar spinal fusion Arthrodesis status Sepsis due to Escherichia coli with acute organ dysfunction and septic shock, unspecified type Essential hypertension, benign Urinary tract infection associated with indwelling urethral catheter, sequela Sepsis due to Gram-negative organism with septic shock (HCC) Septicemia due to gram-negative organism, unspecified Acute blood loss anemia Acute posthemorrhagic anemia Spontaneous pneumothorax Other pneumothorax Severe protein-calorie malnutrition (HCC) Other severe protein-calorie malnutrition Acute postoperative respiratory insufficiency Other pulmonary insufficiency, not elsewhere classified, following trauma and surgery Delirium Other alteration of consciousness Hemodynamic instability Other symptoms involving cardiovascular system Oropharyngeal dysphagia Dysphagia, oropharyngeal phase Thrombocytopenia Thrombocytopenia, unspecified Delirium Other alteration of consciousness Hypomagnesemia Disorders of magnesium metabolism Hypophosphataemia Sepsis due to Escherichia coli (E. coli) (HCC) Septicemia due to Escherichia coli (E. 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 Essential hypertension, benign 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 and other lower urinary tract symptoms (LUTS) 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 Compression fracture of L3 vertebra, sequela Osteoporosis, unspecified osteoporosis type, unspecified pathological fracture presence Chronic constipation Unspecified constipation Benign intracranial hypertension Situational anxiety Other anxiety states Thyroid nodule Nontoxic uninodular goiter Bilateral carotid artery stenosis Occlusion and stenosis of carotid artery without mention of cerebral infarction Pre-operative examination- Primary Preoperative examination, unspecified Nephrolithiasis Calculus of kidney Benign intracranial hypertension Episodic cluster headache, 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 Essential hypertension, benign Oropharyngeal dysphagia Dysphagia, oropharyngeal phase Gastroesophageal reflux disease, unspecified whether esophagitis present 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 and other lower urinary tract symptoms (LUTS) Urinary tract infection associated with indwelling urethral catheter, sequela Nontoxic single thyroid nodule Nontoxic uninodular goiter Acute blood loss anemia Acute posthemorrhagic anemia 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 Compression fracture of L3 vertebra, sequela Osteoporosis, unspecified osteoporosis type, unspecified pathological fracture presence Degenerative scoliosis Situational anxiety Other anxiety states Bilateral carotid artery stenosis Occlusion and stenosis of carotid artery without mention of cerebral infarction Pre-operative examination- Primary Preoperative examination, unspecified Essential hypertension, benign Gastroesophageal reflux disease, unspecified whether esophagitis present Hiatal hernia Diaphragmatic hernia without mention of obstruction or gangrene Osteoporosis, unspecified osteoporosis type, unspecified pathological fracture presence Peripheral edema Edema 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 Situational anxiety Other anxiety states 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 spondylosis without myelopathy Bilateral carotid artery stenosis Occlusion and stenosis of carotid artery without mention of cerebral infarction 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 and other lower urinary tract symptoms (LUTS) Thyroid nodule Nontoxic uninodular goiter Pre-operative examination- Primary Preoperative examination, unspecified Bilateral carotid artery stenosis Occlusion and stenosis of carotid artery without mention of cerebral infarction Essential hypertension, benign Gastroesophageal reflux disease, unspecified whether esophagitis present 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 loss Iron deficiency anemia secondary to blood loss (chronic) Peripheral edema Edema 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 Situational anxiety Other anxiety states Thyroid nodule 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 spondylosis without myelopathy Osteoporosis, unspecified osteoporosis type, unspecified pathological fracture presence Cognitive impairment Unspecified persistent mental disorders due to conditions classified elsewhere 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 and other lower urinary tract symptoms (LUTS) Abnormal SPEP Other nonspecific findings on examination of blood Urinary tract infection without hematuria, site unspecified Dementia without behavioral disturbance (HCC)- Primary Dementia, unspecified, without behavioral disturbance [facility] Diagnosis Nephrolithiasis- Primary Calculus of kidney Screening for genitourinary condition Screening for other and unspecified genitourinary condition Complicated UTI (urinary tract infection) Urinary tract infection, site not specified [facility] Diagnosis Degenerative lumbar spinal stenosis- Primary Spinal stenosis, lumbar region, without neurogenic claudication Degenerative scoliosis Acute postoperative pain Other acute postoperative pain S/P lumbar spinal fusion Arthrodesis status Sepsis due to Escherichia coli with acute organ dysfunction and septic shock, unspecified type Essential hypertension, benign Urinary tract infection associated with indwelling urethral catheter, sequela Sepsis due to Gram-negative organism with septic shock ([facility]) Septicemia due to gram-negative organism, unspecified Acute blood loss anemia Acute posthemorrhagic anemia Spontaneous pneumothorax Other pneumothorax Severe protein-calorie malnutrition ([facility]) Other severe protein-calorie malnutrition Acute postoperative respiratory insufficiency Other pulmonary insufficiency, not elsewhere classified, following trauma and surgery Delirium Other alteration of consciousness Hemodynamic instability Other symptoms involving cardiovascular system Oropharyngeal dysphagia Dysphagia, oropharyngeal phase Thrombocytopenia Thrombocytopenia, unspecified Delirium Other alteration of consciousness Hypomagnesemia Disorders of magnesium metabolism Hypophosphataemia Sepsis due to Escherichia coli (E. coli) ([facility]) Septicemia due to Escherichia coli (E. 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 Essential hypertension, benign 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 and other lower urinary tract symptoms (LUTS) 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 Compression fracture of L3 vertebra, sequela Osteoporosis, unspecified osteoporosis type, unspecified pathological fracture presence Chronic constipation Unspecified constipation Benign intracranial hypertension Situational anxiety Other anxiety states Thyroid nodule Nontoxic uninodular goiter Bilateral carotid artery stenosis Occlusion and stenosis of carotid artery without mention of cerebral infarction Pre-operative examination- Primary Preoperative examination, unspecified Nephrolithiasis Calculus of kidney Benign intracranial hypertension Episodic cluster headache, 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 Essential hypertension, benign Oropharyngeal dysphagia Dysphagia, oropharyngeal phase Gastroesophageal reflux disease, unspecified whether esophagitis present 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 and other lower urinary tract symptoms (LUTS) Urinary tract infection associated with indwelling urethral catheter, sequela Nontoxic single thyroid nodule Nontoxic uninodular goiter Acute blood loss anemia Acute posthemorrhagic anemia 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 Compression fracture of L3 vertebra, sequela Osteoporosis, unspecified osteoporosis type, unspecified pathological fracture presence Degenerative scoliosis Situational anxiety Other anxiety states Bilateral carotid artery stenosis Occlusion and stenosis of carotid artery without mention of cerebral infarction Pre-operative examination- Primary Preoperative examination, unspecified Essential hypertension, benign Gastroesophageal reflux disease, unspecified whether esophagitis present Hiatal hernia Diaphragmatic hernia without mention of obstruction or gangrene Osteoporosis, unspecified osteoporosis type, unspecified pathological fracture presence Peripheral edema Edema 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 Situational anxiety Other anxiety states 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 spondylosis without myelopathy Bilateral carotid artery stenosis Occlusion and stenosis of carotid artery without mention of cerebral infarction 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 and other lower urinary tract symptoms (LUTS) Thyroid nodule Nontoxic uninodular goiter Pre-operative examination- Primary Preoperative examination, unspecified Bilateral carotid artery stenosis Occlusion and stenosis of carotid artery without mention of cerebral infarction Essential hypertension, benign Gastroesophageal reflux disease, unspecified whether esophagitis present 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 loss Iron deficiency anemia secondary to blood loss (chronic) Peripheral edema Edema 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 Situational anxiety Other anxiety states Thyroid nodule 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 spondylosis without myelopathy Osteoporosis, unspecified osteoporosis type, unspecified pathological fracture presence Cognitive impairment Unspecified persistent mental disorders due to conditions classified elsewhere 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 and other lower urinary tract symptoms (LUTS) Abnormal SPEP Other nonspecific findings on examination of blood Urinary tract infection without hematuria, site unspecified Allergic to IV contrast- Primary Allergy, unspecified not elsewhere classified Anemia, chronic disease Anemia of other chronic disease documented in this encounter [facility]* Diagnosis Degenerative lumbar spinal stenosis- Primary Spinal stenosis, lumbar region, without neurogenic claudication Degenerative scoliosis Acute postoperative pain Other acute postoperative pain S/P lumbar spinal fusion Arthrodesis status Sepsis due to Escherichia coli with acute organ dysfunction and septic shock, unspecified type Essential hypertension, benign Urinary tract infection associated with indwelling urethral catheter, sequela Sepsis due to Gram-negative organism with septic shock ([facility]) Septicemia due to gram-negative organism, unspecified Acute blood loss anemia Acute posthemorrhagic anemia Spontaneous pneumothorax Other pneumothorax Severe protein-calorie malnutrition ([facility]) Other severe protein-calorie malnutrition Acute postoperative respiratory insufficiency Other pulmonary insufficiency, not elsewhere classified, following trauma and surgery Delirium Other alteration of consciousness Hemodynamic instability Other symptoms involving cardiovascular system Oropharyngeal dysphagia Dysphagia, oropharyngeal phase Thrombocytopenia Thrombocytopenia, unspecified Delirium Other alteration of consciousness Hypomagnesemia Disorders of magnesium metabolism Hypophosphataemia Sepsis due to Escherichia coli (E. coli) ([facility]) Septicemia due to Escherichia coli (E. 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 Essential hypertension, benign 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 and other lower urinary tract symptoms (LUTS) 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 Compression fracture of L3 vertebra, sequela Osteoporosis, unspecified osteoporosis type, unspecified pathological fracture presence Chronic constipation Unspecified constipation Benign intracranial hypertension Situational anxiety Other anxiety states Thyroid nodule Nontoxic uninodular goiter Bilateral carotid artery stenosis Occlusion and stenosis of carotid artery without mention of cerebral infarction Pre-operative examination- Primary Preoperative examination, unspecified Nephrolithiasis Calculus of kidney Benign intracranial hypertension Episodic cluster headache, 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 Essential hypertension, benign Oropharyngeal dysphagia Dysphagia, oropharyngeal phase Gastroesophageal reflux disease, unspecified whether esophagitis present 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 and other lower urinary tract symptoms (LUTS) Urinary tract infection associated with indwelling urethral catheter, sequela Nontoxic single thyroid nodule Nontoxic uninodular goiter Acute blood loss anemia Acute posthemorrhagic anemia 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 Compression fracture of L3 vertebra, sequela Osteoporosis, unspecified osteoporosis type, unspecified pathological fracture presence Degenerative scoliosis Situational anxiety Other anxiety states Bilateral carotid artery stenosis Occlusion and stenosis of carotid artery without mention of cerebral infarction Pre-operative examination- Primary Preoperative examination, unspecified Essential hypertension, benign Gastroesophageal reflux disease, unspecified whether esophagitis present Hiatal hernia Diaphragmatic hernia without mention of obstruction or gangrene Osteoporosis, unspecified osteoporosis type, unspecified pathological fracture presence Peripheral edema Edema 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 Situational anxiety Other anxiety states 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 spondylosis without myelopathy Bilateral carotid artery stenosis Occlusion and stenosis of carotid artery without mention of cerebral infarction 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 and other lower urinary tract symptoms (LUTS) Thyroid nodule Nontoxic uninodular goiter Pre-operative examination- Primary Preoperative examination, unspecified Bilateral carotid artery stenosis Occlusion and stenosis of carotid artery without mention of cerebral infarction Essential hypertension, benign Gastroesophageal reflux disease, unspecified whether esophagitis present 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 loss Iron deficiency anemia secondary to blood loss (chronic) Peripheral edema Edema 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 Situational anxiety Other anxiety states Thyroid nodule 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 spondylosis without myelopathy Osteoporosis, unspecified osteoporosis type, unspecified pathological fracture presence Cognitive impairment Unspecified persistent mental disorders due to conditions classified elsewhere 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 and other lower urinary tract symptoms (LUTS) Abnormal SPEP Other nonspecific findings on examination of blood Urinary tract infection without hematuria, site unspecified Degenerative lumbar spinal stenosis- Primary Spinal stenosis, lumbar region, without neurogenic claudication Weakness of both lower extremities [facility] Degenerative lumbar spinal stenosis- Primary Spinal stenosis, lumbar region, without neurogenic claudication Degenerative scoliosis Acute postoperative pain Other acute postoperative pain S/P lumbar spinal fusion Arthrodesis status Sepsis due to Escherichia coli with acute organ dysfunction and septic shock, unspecified type Essential hypertension, benign Urinary tract infection associated with indwelling urethral catheter, sequela Sepsis due to Gram-negative organism with septic shock (HCC) Septicemia due to gram-negative organism, unspecified Acute blood loss anemia Acute posthemorrhagic anemia Spontaneous pneumothorax Other pneumothorax Severe protein-calorie malnutrition ([facility]) Other severe protein-calorie malnutrition Acute postoperative respiratory insufficiency Other pulmonary insufficiency, not elsewhere classified, following trauma and surgery Delirium Other alteration of consciousness Hemodynamic instability Other symptoms involving cardiovascular system Oropharyngeal dysphagia Dysphagia, oropharyngeal phase Thrombocytopenia Thrombocytopenia, unspecified Delirium Other alteration of consciousness Hypomagnesemia Disorders of magnesium metabolism Hypophosphataemia Sepsis due to Escherichia coli (E. coli) ([facility]) Septicemia due to Escherichia coli (E. 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 Essential hypertension, benign 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 and other lower urinary tract symptoms (LUTS) 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 Compression fracture of L3 vertebra, sequela Osteoporosis, unspecified osteoporosis type, unspecified pathological fracture presence Chronic constipation Unspecified constipation Benign intracranial hypertension Situational anxiety Other anxiety states Thyroid nodule Nontoxic uninodular goiter Bilateral carotid artery stenosis Occlusion and stenosis of carotid artery without mention of cerebral infarction Pre-operative examination- Primary Preoperative examination, unspecified Nephrolithiasis Calculus of kidney Benign intracranial hypertension Episodic cluster headache, 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 Essential hypertension, benign Oropharyngeal dysphagia Dysphagia, oropharyngeal phase Gastroesophageal reflux disease, unspecified whether esophagitis present 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 and other lower urinary tract symptoms (LUTS) Urinary tract infection associated with indwelling urethral catheter, sequela Nontoxic single thyroid nodule Nontoxic uninodular goiter Acute blood loss anemia Acute posthemorrhagic anemia 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 Compression fracture of L3 vertebra, sequela Osteoporosis, unspecified osteoporosis type, unspecified pathological fracture presence Degenerative scoliosis Situational anxiety Other anxiety states Bilateral carotid artery stenosis Occlusion and stenosis of carotid artery without mention of cerebral infarction Pre-operative examination- Primary Preoperative examination, unspecified Essential hypertension, benign Gastroesophageal reflux disease, unspecified whether esophagitis present Hiatal hernia Diaphragmatic hernia without mention of obstruction or gangrene Osteoporosis, unspecified osteoporosis type, unspecified pathological fracture presence Peripheral edema Edema 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 Situational anxiety Other anxiety states 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 spondylosis without myelopathy Bilateral carotid artery stenosis Occlusion and stenosis of carotid artery without mention of cerebral infarction 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 and other lower urinary tract symptoms (LUTS) Thyroid nodule Nontoxic uninodular goiter Pre-operative examination- Primary Preoperative examination, unspecified Bilateral carotid artery stenosis Occlusion and stenosis of carotid artery without mention of cerebral infarction Essential hypertension, benign Gastroesophageal reflux disease, unspecified whether esophagitis present 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 loss Iron deficiency anemia secondary to blood loss (chronic) Peripheral edema Edema 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 Situational anxiety Other anxiety states Thyroid nodule 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 spondylosis without myelopathy Osteoporosis, unspecified osteoporosis type, unspecified pathological fracture presence Cognitive impairment Unspecified persistent mental disorders due to conditions classified elsewhere 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 and other lower urinary tract symptoms (LUTS) Abnormal SPEP Other nonspecific findings on examination of blood Urinary tract infection without hematuria, site unspecified Anemia, chronic disease- Primary Anemia of other chronic disease [facility] Diagnosis Degenerative lumbar spinal stenosis- Primary Spinal stenosis, lumbar region, without neurogenic claudication Degenerative scoliosis Acute postoperative pain Other acute postoperative pain S/P lumbar spinal fusion Arthrodesis status Sepsis due to Escherichia coli with acute organ dysfunction and septic shock, unspecified type Essential hypertension, benign Urinary tract infection associated with indwelling urethral catheter, sequela Sepsis due to Gram-negative organism with septic shock (HCC) Septicemia due to gram-negative organism, unspecified Acute blood loss anemia Acute posthemorrhagic anemia Spontaneous pneumothorax Other pneumothorax Severe protein-calorie malnutrition (HCC) Other severe protein-calorie malnutrition Acute postoperative respiratory insufficiency Other pulmonary insufficiency, not elsewhere classified, following trauma and surgery Delirium Other alteration of consciousness Hemodynamic instability Other symptoms involving cardiovascular system Oropharyngeal dysphagia Dysphagia, oropharyngeal phase Thrombocytopenia Thrombocytopenia, unspecified Delirium Other alteration of consciousness Hypomagnesemia Disorders of magnesium metabolism Hypophosphataemia Sepsis due to Escherichia coli (E. coli) (HCC) Septicemia due to Escherichia coli (E. 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 Essential hypertension, benign 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 and other lower urinary tract symptoms (LUTS) 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 Compression fracture of L3 vertebra, sequela Osteoporosis, unspecified osteoporosis type, unspecified pathological fracture presence Chronic constipation Unspecified constipation Benign intracranial hypertension Situational anxiety Other anxiety states Thyroid nodule Nontoxic uninodular goiter Bilateral carotid artery stenosis Occlusion and stenosis of carotid artery without mention of cerebral infarction Pre-operative examination- Primary Preoperative examination, unspecified Nephrolithiasis Calculus of kidney Benign intracranial hypertension Episodic cluster headache, 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 Essential hypertension, benign Oropharyngeal dysphagia Dysphagia, oropharyngeal phase Gastroesophageal reflux disease, unspecified whether esophagitis present 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 and other lower urinary tract symptoms (LUTS) Urinary tract infection associated with indwelling urethral catheter, sequela Nontoxic single thyroid nodule Nontoxic uninodular goiter Acute blood loss anemia Acute posthemorrhagic anemia 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 Compression fracture of L3 vertebra, sequela Osteoporosis, unspecified osteoporosis type, unspecified pathological fracture presence Degenerative scoliosis Situational anxiety Other anxiety states Bilateral carotid artery stenosis Occlusion and stenosis of carotid artery without mention of cerebral infarction Pre-operative examination- Primary Preoperative examination, unspecified Essential hypertension, benign Gastroesophageal reflux disease, unspecified whether esophagitis present Hiatal hernia Diaphragmatic hernia without mention of obstruction or gangrene Osteoporosis, unspecified osteoporosis type, unspecified pathological fracture presence Peripheral edema Edema 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 Situational anxiety Other anxiety states 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 spondylosis without myelopathy Bilateral carotid artery stenosis Occlusion and stenosis of carotid artery without mention of cerebral infarction 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 and other lower urinary tract symptoms (LUTS) Thyroid nodule Nontoxic uninodular goiter Pre-operative examination- Primary Preoperative examination, unspecified Bilateral carotid artery stenosis Occlusion and stenosis of carotid artery without mention of cerebral infarction Essential hypertension, benign Gastroesophageal reflux disease, unspecified whether esophagitis present 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 loss Iron deficiency anemia secondary to blood loss (chronic) Peripheral edema Edema 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 Situational anxiety Other anxiety states Thyroid nodule 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 spondylosis without myelopathy Osteoporosis, unspecified osteoporosis type, unspecified pathological fracture presence Cognitive impairment Unspecified persistent mental disorders due to conditions classified elsewhere 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 and other lower urinary tract symptoms (LUTS) Abnormal SPEP Other nonspecific findings on examination of blood Urinary tract infection without hematuria, site unspecified Iron deficiency anemia, unspecified iron deficiency anemia type- Primary documented in this encounter [facility]* Diagnosis Degenerative lumbar spinal stenosis- Primary Spinal stenosis, lumbar region, without neurogenic claudication Degenerative scoliosis Acute postoperative pain Other acute postoperative pain S/P lumbar spinal fusion Arthrodesis status Sepsis due to Escherichia coli with acute organ dysfunction and septic shock, unspecified type Essential hypertension, benign Urinary tract infection associated with indwelling urethral catheter, sequela Sepsis due to Gram-negative organism with septic shock (HCC) Septicemia due to gram-negative organism, unspecified Acute blood loss anemia Acute posthemorrhagic anemia Spontaneous pneumothorax Other pneumothorax Severe protein-calorie malnutrition (HCC) Other severe protein-calorie malnutrition Acute postoperative respiratory insufficiency Other pulmonary insufficiency, not elsewhere classified, following trauma and surgery Delirium Other alteration of consciousness Hemodynamic instability Other symptoms involving cardiovascular system Oropharyngeal dysphagia Dysphagia, oropharyngeal phase Thrombocytopenia Thrombocytopenia, unspecified Delirium Other alteration of consciousness Hypomagnesemia Disorders of magnesium metabolism Hypophosphataemia Sepsis due to Escherichia coli (E. coli) (HCC) Septicemia due to Escherichia coli (E. 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 Essential hypertension, benign 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 and other lower urinary tract symptoms (LUTS) 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 Compression fracture of L3 vertebra, sequela Osteoporosis, unspecified osteoporosis type, unspecified pathological fracture presence Chronic constipation Unspecified constipation Benign intracranial hypertension Situational anxiety Other anxiety states Thyroid nodule Nontoxic uninodular goiter Bilateral carotid artery stenosis Occlusion and stenosis of carotid artery without mention of cerebral infarction Pre-operative examination- Primary Preoperative examination, unspecified Nephrolithiasis Calculus of kidney Benign intracranial hypertension Episodic cluster headache, 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 Essential hypertension, benign Oropharyngeal dysphagia Dysphagia, oropharyngeal phase Gastroesophageal reflux disease, unspecified whether esophagitis present 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 and other lower urinary tract symptoms (LUTS) Urinary tract infection associated with indwelling urethral catheter, sequela Nontoxic single thyroid nodule Nontoxic uninodular goiter Acute blood loss anemia Acute posthemorrhagic anemia 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 Compression fracture of L3 vertebra, sequela Osteoporosis, unspecified osteoporosis type, unspecified pathological fracture presence Degenerative scoliosis Situational anxiety Other anxiety states Bilateral carotid artery stenosis Occlusion and stenosis of carotid artery without mention of cerebral infarction Pre-operative examination- Primary Preoperative examination, unspecified Essential hypertension, benign Gastroesophageal reflux disease, unspecified whether esophagitis present Hiatal hernia Diaphragmatic hernia without mention of obstruction or gangrene Osteoporosis, unspecified osteoporosis type, unspecified pathological fracture presence Peripheral edema Edema 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 Situational anxiety Other anxiety states 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 spondylosis without myelopathy Bilateral carotid artery stenosis Occlusion and stenosis of carotid artery without mention of cerebral infarction 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 and other lower urinary tract symptoms (LUTS) Thyroid nodule Nontoxic uninodular goiter Pre-operative examination- Primary Preoperative examination, unspecified Bilateral carotid artery stenosis Occlusion and stenosis of carotid artery without mention of cerebral infarction Essential hypertension, benign Gastroesophageal reflux disease, unspecified whether esophagitis present 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 loss Iron deficiency anemia secondary to blood loss (chronic) Peripheral edema Edema 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 Situational anxiety Other anxiety states Thyroid nodule 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 spondylosis without myelopathy Osteoporosis, unspecified osteoporosis type, unspecified pathological fracture presence Cognitive impairment Unspecified persistent mental disorders due to conditions classified elsewhere 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 and other lower urinary tract symptoms (LUTS) Abnormal SPEP Other nonspecific findings on examination of blood Urinary tract infection without hematuria, site unspecified Weakness of both lower extremities- Primary documented in this encounter [facility]* Diagnosis Degenerative lumbar spinal stenosis- Primary Spinal stenosis, lumbar region, without neurogenic claudication Degenerative scoliosis Acute postoperative pain Other acute postoperative pain S/P lumbar spinal fusion Arthrodesis status Sepsis due to Escherichia coli with acute organ dysfunction and septic shock, unspecified type Essential hypertension, benign Urinary tract infection associated with indwelling urethral catheter, sequela Sepsis due to Gram-negative organism with septic shock ([facility]) Septicemia due to gram-negative organism, unspecified Acute blood loss anemia Acute posthemorrhagic anemia Spontaneous pneumothorax Other pneumothorax Severe protein-calorie malnutrition ([facility]) Other severe protein-calorie malnutrition Acute postoperative respiratory insufficiency Other pulmonary insufficiency, not elsewhere classified, following trauma and surgery Delirium Other alteration of consciousness Hemodynamic instability Other symptoms involving cardiovascular system Oropharyngeal dysphagia Dysphagia, oropharyngeal phase Thrombocytopenia Thrombocytopenia, unspecified Delirium Other alteration of consciousness Hypomagnesemia Disorders of magnesium metabolism Hypophosphataemia Sepsis due to Escherichia coli (E. coli) ([facility]) Septicemia due to Escherichia coli (E. 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 Essential hypertension, benign 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 and other lower urinary tract symptoms (LUTS) 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 Compression fracture of L3 vertebra, sequela Osteoporosis, unspecified osteoporosis type, unspecified pathological fracture presence Chronic constipation Unspecified constipation Benign intracranial hypertension Situational anxiety Other anxiety states Thyroid nodule Nontoxic uninodular goiter Bilateral carotid artery stenosis Occlusion and stenosis of carotid artery without mention of cerebral infarction Pre-operative examination- Primary Preoperative examination, unspecified Nephrolithiasis Calculus of kidney Benign intracranial hypertension Episodic cluster headache, 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 Essential hypertension, benign Oropharyngeal dysphagia Dysphagia, oropharyngeal phase Gastroesophageal reflux disease, unspecified whether esophagitis present 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 and other lower urinary tract symptoms (LUTS) Urinary tract infection associated with indwelling urethral catheter, sequela Nontoxic single thyroid nodule Nontoxic uninodular goiter Acute blood loss anemia Acute posthemorrhagic anemia 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 Compression fracture of L3 vertebra, sequela Osteoporosis, unspecified osteoporosis type, unspecified pathological fracture presence Degenerative scoliosis Situational anxiety Other anxiety states Bilateral carotid artery stenosis Occlusion and stenosis of carotid artery without mention of cerebral infarction Pre-operative examination- Primary Preoperative examination, unspecified Essential hypertension, benign Gastroesophageal reflux disease, unspecified whether esophagitis present Hiatal hernia Diaphragmatic hernia without mention of obstruction or gangrene Osteoporosis, unspecified osteoporosis type, unspecified pathological fracture presence Peripheral edema Edema 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 Situational anxiety Other anxiety states 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 spondylosis without myelopathy Bilateral carotid artery stenosis Occlusion and stenosis of carotid artery without mention of cerebral infarction 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 and other lower urinary tract symptoms (LUTS) Thyroid nodule Nontoxic uninodular goiter Pre-operative examination- Primary Preoperative examination, unspecified Bilateral carotid artery stenosis Occlusion and stenosis of carotid artery without mention of cerebral infarction Essential hypertension, benign Gastroesophageal reflux disease, unspecified whether esophagitis present 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 loss Iron deficiency anemia secondary to blood loss (chronic) Peripheral edema Edema 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 Situational anxiety Other anxiety states Thyroid nodule 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 spondylosis without myelopathy Osteoporosis, unspecified osteoporosis type, unspecified pathological fracture presence Cognitive impairment Unspecified persistent mental disorders due to conditions classified elsewhere 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 and other lower urinary tract symptoms (LUTS) Abnormal SPEP Other nonspecific findings on examination of blood Urinary tract infection without hematuria, site unspecified Left upper quadrant abdominal pain [facility] Diagnosis Degenerative lumbar spinal stenosis- Primary Spinal stenosis, lumbar region, without neurogenic claudication Degenerative scoliosis Acute postoperative pain Other acute postoperative pain S/P lumbar spinal fusion Arthrodesis status Sepsis due to Escherichia coli with acute organ dysfunction and septic shock, unspecified type Essential hypertension, benign Urinary tract infection associated with indwelling urethral catheter, sequela Sepsis due to Gram-negative organism with septic shock (HCC) Septicemia due to gram-negative organism, unspecified Acute blood loss anemia Acute posthemorrhagic anemia Spontaneous pneumothorax Other pneumothorax Severe protein-calorie malnutrition (HCC) Other severe protein-calorie malnutrition Acute postoperative respiratory insufficiency Other pulmonary insufficiency, not elsewhere classified, following trauma and surgery Delirium Other alteration of consciousness Hemodynamic instability Other symptoms involving cardiovascular system Oropharyngeal dysphagia Dysphagia, oropharyngeal phase Thrombocytopenia Thrombocytopenia, unspecified Delirium Other alteration of consciousness Hypomagnesemia Disorders of magnesium metabolism Hypophosphataemia Sepsis due to Escherichia coli (E. coli) ([facility]) Septicemia due to Escherichia coli (E. 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 Essential hypertension, benign 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 and other lower urinary tract symptoms (LUTS) 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 Compression fracture of L3 vertebra, sequela Osteoporosis, unspecified osteoporosis type, unspecified pathological fracture presence Chronic constipation Unspecified constipation Benign intracranial hypertension Situational anxiety Other anxiety states Thyroid nodule Nontoxic uninodular goiter Bilateral carotid artery stenosis Occlusion and stenosis of carotid artery without mention of cerebral infarction Pre-operative examination- Primary Preoperative examination, unspecified Nephrolithiasis Calculus of kidney Benign intracranial hypertension Episodic cluster headache, 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 Essential hypertension, benign Oropharyngeal dysphagia Dysphagia, oropharyngeal phase Gastroesophageal reflux disease, unspecified whether esophagitis present 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 and other lower urinary tract symptoms (LUTS) Urinary tract infection associated with indwelling urethral catheter, sequela Nontoxic single thyroid nodule Nontoxic uninodular goiter Acute blood loss anemia Acute posthemorrhagic anemia 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 Compression fracture of L3 vertebra, sequela Osteoporosis, unspecified osteoporosis type, unspecified pathological fracture presence Degenerative scoliosis Situational anxiety Other anxiety states Bilateral carotid artery stenosis Occlusion and stenosis of carotid artery without mention of cerebral infarction Pre-operative examination- Primary Preoperative examination, unspecified Essential hypertension, benign Gastroesophageal reflux disease, unspecified whether esophagitis present Hiatal hernia Diaphragmatic hernia without mention of obstruction or gangrene Osteoporosis, unspecified osteoporosis type, unspecified pathological fracture presence Peripheral edema Edema 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 Situational anxiety Other anxiety states 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 spondylosis without myelopathy Bilateral carotid artery stenosis Occlusion and stenosis of carotid artery without mention of cerebral infarction 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 and other lower urinary tract symptoms (LUTS) Thyroid nodule Nontoxic uninodular goiter Pre-operative examination- Primary Preoperative examination, unspecified Bilateral carotid artery stenosis Occlusion and stenosis of carotid artery without mention of cerebral infarction Essential hypertension, benign Gastroesophageal reflux disease, unspecified whether esophagitis present 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 loss Iron deficiency anemia secondary to blood loss (chronic) Peripheral edema Edema 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 Situational anxiety Other anxiety states Thyroid nodule 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 spondylosis without myelopathy Osteoporosis, unspecified osteoporosis type, unspecified pathological fracture presence Cognitive impairment Unspecified persistent mental disorders due to conditions classified elsewhere 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 and other lower urinary tract symptoms (LUTS) Abnormal SPEP Other nonspecific findings on examination of blood Urinary tract infection without hematuria, site unspecified Iron deficiency anemia, unspecified iron deficiency anemia type- Primary documented in this encounter [facility] note* Diagnosis Degenerative lumbar spinal stenosis- Primary Spinal stenosis, lumbar region, without neurogenic claudication Degenerative scoliosis Acute postoperative pain Other acute postoperative pain S/P lumbar spinal fusion Arthrodesis status Sepsis due to Escherichia coli with acute organ dysfunction and septic shock, unspecified type Essential hypertension, benign Urinary tract infection associated with indwelling urethral catheter, sequela Sepsis due to Gram-negative organism with septic shock (HCC) Septicemia due to gram-negative organism, unspecified Acute blood loss anemia Acute posthemorrhagic anemia Spontaneous pneumothorax Other pneumothorax Severe protein-calorie malnutrition (HCC) Other severe protein-calorie malnutrition Acute postoperative respiratory insufficiency Other pulmonary insufficiency, not elsewhere classified, following trauma and surgery Delirium Other alteration of consciousness Hemodynamic instability Other symptoms involving cardiovascular system Oropharyngeal dysphagia Dysphagia, oropharyngeal phase Thrombocytopenia Thrombocytopenia, unspecified Delirium Other alteration of consciousness Hypomagnesemia Disorders of magnesium metabolism Hypophosphataemia Sepsis due to Escherichia coli (E. coli) (HCC) Septicemia due to Escherichia coli (E. 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 Essential hypertension, benign 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 and other lower urinary tract symptoms (LUTS) 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 Compression fracture of L3 vertebra, sequela Osteoporosis, unspecified osteoporosis type, unspecified pathological fracture presence Chronic constipation Unspecified constipation Benign intracranial hypertension Situational anxiety Other anxiety states Thyroid nodule Nontoxic uninodular goiter Bilateral carotid artery stenosis Occlusion and stenosis of carotid artery without mention of cerebral infarction Pre-operative examination- Primary Preoperative examination, unspecified Nephrolithiasis Calculus of kidney Benign intracranial hypertension Episodic cluster headache, 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 Essential hypertension, benign Oropharyngeal dysphagia Dysphagia, oropharyngeal phase Gastroesophageal reflux disease, unspecified whether esophagitis present 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 and other lower urinary tract symptoms (LUTS) Urinary tract infection associated with indwelling urethral catheter, sequela Nontoxic single thyroid nodule Nontoxic uninodular goiter Acute blood loss anemia Acute posthemorrhagic anemia 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 Compression fracture of L3 vertebra, sequela Osteoporosis, unspecified osteoporosis type, unspecified pathological fracture presence Degenerative scoliosis Situational anxiety Other anxiety states Bilateral carotid artery stenosis Occlusion and stenosis of carotid artery without mention of cerebral infarction Pre-operative examination- Primary Preoperative examination, unspecified Essential hypertension, benign Gastroesophageal reflux disease, unspecified whether esophagitis present Hiatal hernia Diaphragmatic hernia without mention of obstruction or gangrene Osteoporosis, unspecified osteoporosis type, unspecified pathological fracture presence Peripheral edema Edema 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 Situational anxiety Other anxiety states 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 spondylosis without myelopathy Bilateral carotid artery stenosis Occlusion and stenosis of carotid artery without mention of cerebral infarction 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 and other lower urinary tract symptoms (LUTS) Thyroid nodule Nontoxic uninodular goiter Pre-operative examination- Primary Preoperative examination, unspecified Bilateral carotid artery stenosis Occlusion and stenosis of carotid artery without mention of cerebral infarction Essential hypertension, benign Gastroesophageal reflux disease, unspecified whether esophagitis present 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 loss Iron deficiency anemia secondary to blood loss (chronic) Peripheral edema Edema 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 Situational anxiety Other anxiety states Thyroid nodule 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 spondylosis without myelopathy Osteoporosis, unspecified osteoporosis type, unspecified pathological fracture presence Cognitive impairment Unspecified persistent mental disorders due to conditions classified elsewhere 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 and other lower urinary tract symptoms (LUTS) Abnormal SPEP Other nonspecific findings on examination of blood Urinary tract infection without hematuria, site unspecified Neuropathy- Primary Mononeuritis of unspecified site Neuropathy - (NOS) [facility] Diagnosis Degenerative lumbar spinal stenosis- Primary Spinal stenosis, lumbar region, without neurogenic claudication Degenerative scoliosis Acute postoperative pain Other acute postoperative pain S/P lumbar spinal fusion Arthrodesis status Sepsis due to Escherichia coli with acute organ dysfunction and septic shock, unspecified type Essential hypertension, benign Urinary tract infection associated with indwelling urethral catheter, sequela Sepsis due to Gram-negative organism with septic shock (HCC) Septicemia due to gram-negative organism, unspecified Acute blood loss anemia Acute posthemorrhagic anemia Spontaneous pneumothorax Other pneumothorax Severe protein-calorie malnutrition (HCC) Other severe protein-calorie malnutrition Acute postoperative respiratory insufficiency Other pulmonary insufficiency, not elsewhere classified, following trauma and surgery Delirium Other alteration of consciousness Hemodynamic instability Other symptoms involving cardiovascular system Oropharyngeal dysphagia Dysphagia, oropharyngeal phase Thrombocytopenia Thrombocytopenia, unspecified Delirium Other alteration of consciousness Hypomagnesemia Disorders of magnesium metabolism Hypophosphataemia Sepsis due to Escherichia coli (E. coli) ([facility]) Septicemia due to Escherichia coli (E. 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 Essential hypertension, benign 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 and other lower urinary tract symptoms (LUTS) 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 Compression fracture of L3 vertebra, sequela Osteoporosis, unspecified osteoporosis type, unspecified pathological fracture presence Chronic constipation Unspecified constipation Benign intracranial hypertension Situational anxiety Other anxiety states Thyroid nodule Nontoxic uninodular goiter Bilateral carotid artery stenosis Occlusion and stenosis of carotid artery without mention of cerebral infarction Pre-operative examination- Primary Preoperative examination, unspecified Nephrolithiasis Calculus of kidney Benign intracranial hypertension Episodic cluster headache, 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 Essential hypertension, benign Oropharyngeal dysphagia Dysphagia, oropharyngeal phase Gastroesophageal reflux disease, unspecified whether esophagitis present 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 and other lower urinary tract symptoms (LUTS) Urinary tract infection associated with indwelling urethral catheter, sequela Nontoxic single thyroid nodule Nontoxic uninodular goiter Acute blood loss anemia Acute posthemorrhagic anemia 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 Compression fracture of L3 vertebra, sequela Osteoporosis, unspecified osteoporosis type, unspecified pathological fracture presence Degenerative scoliosis Situational anxiety Other anxiety states Bilateral carotid artery stenosis Occlusion and stenosis of carotid artery without mention of cerebral infarction Pre-operative examination- Primary Preoperative examination, unspecified Essential hypertension, benign Gastroesophageal reflux disease, unspecified whether esophagitis present Hiatal hernia Diaphragmatic hernia without mention of obstruction or gangrene Osteoporosis, unspecified osteoporosis type, unspecified pathological fracture presence Peripheral edema Edema 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 Situational anxiety Other anxiety states 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 spondylosis without myelopathy Bilateral carotid artery stenosis Occlusion and stenosis of carotid artery without mention of cerebral infarction 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 and other lower urinary tract symptoms (LUTS) Thyroid nodule Nontoxic uninodular goiter Pre-operative examination- Primary Preoperative examination, unspecified Bilateral carotid artery stenosis Occlusion and stenosis of carotid artery without mention of cerebral infarction Essential hypertension, benign Gastroesophageal reflux disease, unspecified whether esophagitis present 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 loss Iron deficiency anemia secondary to blood loss (chronic) Peripheral edema Edema 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 Situational anxiety Other anxiety states Thyroid nodule 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 spondylosis without myelopathy Osteoporosis, unspecified osteoporosis type, unspecified pathological fracture presence Cognitive impairment Unspecified persistent mental disorders due to conditions classified elsewhere 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 and other lower urinary tract symptoms (LUTS) Abnormal SPEP Other nonspecific findings on examination of blood Urinary tract infection without hematuria, site unspecified Recurrent UTI Urinary tract infection, site not specified [facility] Diagnosis Degenerative lumbar spinal stenosis- Primary Spinal stenosis, lumbar region, without neurogenic claudication Degenerative scoliosis Acute postoperative pain Other acute postoperative pain S/P lumbar spinal fusion Arthrodesis status Sepsis due to Escherichia coli with acute organ dysfunction and septic shock, unspecified type Essential hypertension, benign Urinary tract infection associated with indwelling urethral catheter, sequela Sepsis due to Gram-negative organism with septic shock ([facility]) Septicemia due to gram-negative organism, unspecified Acute blood loss anemia Acute posthemorrhagic anemia Spontaneous pneumothorax Other pneumothorax Severe protein-calorie malnutrition ([facility]) Other severe protein-calorie malnutrition Acute postoperative respiratory insufficiency Other pulmonary insufficiency, not elsewhere classified, following trauma and surgery Delirium Other alteration of consciousness Hemodynamic instability Other symptoms involving cardiovascular system Oropharyngeal dysphagia Dysphagia, oropharyngeal phase Thrombocytopenia Thrombocytopenia, unspecified Delirium Other alteration of consciousness Hypomagnesemia Disorders of magnesium metabolism Hypophosphataemia Sepsis due to Escherichia coli (E. coli) ([facility]) Septicemia due to Escherichia coli (E. 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 Essential hypertension, benign 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 and other lower urinary tract symptoms (LUTS) 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 Compression fracture of L3 vertebra, sequela Osteoporosis, unspecified osteoporosis type, unspecified pathological fracture presence Chronic constipation Unspecified constipation Benign intracranial hypertension Situational anxiety Other anxiety states Thyroid nodule Nontoxic uninodular goiter Bilateral carotid artery stenosis Occlusion and stenosis of carotid artery without mention of cerebral infarction Pre-operative examination- Primary Preoperative examination, unspecified Nephrolithiasis Calculus of kidney Benign intracranial hypertension Episodic cluster headache, 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 Essential hypertension, benign Oropharyngeal dysphagia Dysphagia, oropharyngeal phase Gastroesophageal reflux disease, unspecified whether esophagitis present 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 and other lower urinary tract symptoms (LUTS) Urinary tract infection associated with indwelling urethral catheter, sequela Nontoxic single thyroid nodule Nontoxic uninodular goiter Acute blood loss anemia Acute posthemorrhagic anemia 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 Compression fracture of L3 vertebra, sequela Osteoporosis, unspecified osteoporosis type, unspecified pathological fracture presence Degenerative scoliosis Situational anxiety Other anxiety states Bilateral carotid artery stenosis Occlusion and stenosis of carotid artery without mention of cerebral infarction Pre-operative examination- Primary Preoperative examination, unspecified Essential hypertension, benign Gastroesophageal reflux disease, unspecified whether esophagitis present Hiatal hernia Diaphragmatic hernia without mention of obstruction or gangrene Osteoporosis, unspecified osteoporosis type, unspecified pathological fracture presence Peripheral edema Edema 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 Situational anxiety Other anxiety states 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 spondylosis without myelopathy Bilateral carotid artery stenosis Occlusion and stenosis of carotid artery without mention of cerebral infarction 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 and other lower urinary tract symptoms (LUTS) Thyroid nodule Nontoxic uninodular goiter Pre-operative examination- Primary Preoperative examination, unspecified Bilateral carotid artery stenosis Occlusion and stenosis of carotid artery without mention of cerebral infarction Essential hypertension, benign Gastroesophageal reflux disease, unspecified whether esophagitis present 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 loss Iron deficiency anemia secondary to blood loss (chronic) Peripheral edema Edema 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 Situational anxiety Other anxiety states Thyroid nodule 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 spondylosis without myelopathy Osteoporosis, unspecified osteoporosis type, unspecified pathological fracture presence Cognitive impairment Unspecified persistent mental disorders due to conditions classified elsewhere 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 and other lower urinary tract symptoms (LUTS) Abnormal SPEP Other nonspecific findings on examination of blood Urinary tract infection without hematuria, site unspecified Abnormal serum protein electrophoresis- Primary Other nonspecific findings on examination of blood [place] light chain deposition disease (HCC) Neuropathy - (NOS) [facility] Diagnosis Degenerative lumbar spinal stenosis- Primary Spinal stenosis, lumbar region, without neurogenic claudication Degenerative scoliosis Acute postoperative pain Other acute postoperative pain S/P lumbar spinal fusion Arthrodesis status Sepsis due to Escherichia coli with acute organ dysfunction and septic shock, unspecified type Essential hypertension, benign Urinary tract infection associated with indwelling urethral catheter, sequela Sepsis due to Gram-negative organism with septic shock (HCC) Septicemia due to gram-negative organism, unspecified Acute blood loss anemia Acute posthemorrhagic anemia Spontaneous pneumothorax Other pneumothorax Severe protein-calorie malnutrition (HCC) Other severe protein-calorie malnutrition Acute postoperative respiratory insufficiency Other pulmonary insufficiency, not elsewhere classified, following trauma and surgery Delirium Other alteration of consciousness Hemodynamic instability Other symptoms involving cardiovascular system Oropharyngeal dysphagia Dysphagia, oropharyngeal phase Thrombocytopenia Thrombocytopenia, unspecified Delirium Other alteration of consciousness Hypomagnesemia Disorders of magnesium metabolism Hypophosphataemia Sepsis due to Escherichia coli (E. coli) (HCC) Septicemia due to Escherichia coli (E. 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 Essential hypertension, benign 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 and other lower urinary tract symptoms (LUTS) 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 Compression fracture of L3 vertebra, sequela Osteoporosis, unspecified osteoporosis type, unspecified pathological fracture presence Chronic constipation Unspecified constipation Benign intracranial hypertension Situational anxiety Other anxiety states Thyroid nodule Nontoxic uninodular goiter Bilateral carotid artery stenosis Occlusion and stenosis of carotid artery without mention of cerebral infarction Pre-operative examination- Primary Preoperative examination, unspecified Nephrolithiasis Calculus of kidney Benign intracranial hypertension Episodic cluster headache, 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 Essential hypertension, benign Oropharyngeal dysphagia Dysphagia, oropharyngeal phase Gastroesophageal reflux disease, unspecified whether esophagitis present 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 and other lower urinary tract symptoms (LUTS) Urinary tract infection associated with indwelling urethral catheter, sequela Nontoxic single thyroid nodule Nontoxic uninodular goiter Acute blood loss anemia Acute posthemorrhagic anemia 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 Compression fracture of L3 vertebra, sequela Osteoporosis, unspecified osteoporosis type, unspecified pathological fracture presence Degenerative scoliosis Situational anxiety Other anxiety states Bilateral carotid artery stenosis Occlusion and stenosis of carotid artery without mention of cerebral infarction Pre-operative examination- Primary Preoperative examination, unspecified Essential hypertension, benign Gastroesophageal reflux disease, unspecified whether esophagitis present Hiatal hernia Diaphragmatic hernia without mention of obstruction or gangrene Osteoporosis, unspecified osteoporosis type, unspecified pathological fracture presence Peripheral edema Edema 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 Situational anxiety Other anxiety states 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 spondylosis without myelopathy Bilateral carotid artery stenosis Occlusion and stenosis of carotid artery without mention of cerebral infarction 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 and other lower urinary tract symptoms (LUTS) Thyroid nodule Nontoxic uninodular goiter Pre-operative examination- Primary Preoperative examination, unspecified Bilateral carotid artery stenosis Occlusion and stenosis of carotid artery without mention of cerebral infarction Essential hypertension, benign Gastroesophageal reflux disease, unspecified whether esophagitis present 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 loss Iron deficiency anemia secondary to blood loss (chronic) Peripheral edema Edema 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 Situational anxiety Other anxiety states Thyroid nodule 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 spondylosis without myelopathy Osteoporosis, unspecified osteoporosis type, unspecified pathological fracture presence Cognitive impairment Unspecified persistent mental disorders due to conditions classified elsewhere 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 and other lower urinary tract symptoms (LUTS) Abnormal SPEP Other nonspecific findings on examination of blood Urinary tract infection without hematuria, site unspecified Nightmares Other dysfunctions of sleep stages or arousal from sleep Dementia without behavioral disturbance (HCC) Dementia, unspecified, without behavioral disturbance Situational depression Adjustment disorder with depressed mood [facility] Diagnosis Degenerative lumbar spinal stenosis- Primary Spinal stenosis, lumbar region, without neurogenic claudication Degenerative scoliosis Acute postoperative pain Other acute postoperative pain S/P lumbar spinal fusion Arthrodesis status Sepsis due to Escherichia coli with acute organ dysfunction and septic shock, unspecified type Essential hypertension, benign Urinary tract infection associated with indwelling urethral catheter, sequela Sepsis due to Gram-negative organism with septic shock ([facility]) Septicemia due to gram-negative organism, unspecified Acute blood loss anemia Acute posthemorrhagic anemia Spontaneous pneumothorax Other pneumothorax Severe protein-calorie malnutrition (HCC) Other severe protein-calorie malnutrition Acute postoperative respiratory insufficiency Other pulmonary insufficiency, not elsewhere classified, following trauma and surgery Delirium Other alteration of consciousness Hemodynamic instability Other symptoms involving cardiovascular system Oropharyngeal dysphagia Dysphagia, oropharyngeal phase Thrombocytopenia Thrombocytopenia, unspecified Delirium Other alteration of consciousness Hypomagnesemia Disorders of magnesium metabolism Hypophosphataemia Sepsis due to Escherichia coli (E. coli) (HCC) Septicemia due to Escherichia coli (E. coli) Sepsis due to Gram-negative organism with septic shock ([facility]) Septicemia due to gram-negative organism, unspecified Acute postoperative respiratory insufficiency Other pulmonary insufficiency, not elsewhere classified, following trauma and surgery BRITTANY (acute kidney injury) (HCC) Acute kidney failure, unspecified Pre-operative examination- Primary Preoperative examination, unspecified Degenerative scoliosis Episodic cluster headache, 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 Essential hypertension, benign 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 and other lower urinary tract symptoms (LUTS) 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 Compression fracture of L3 vertebra, sequela Osteoporosis, unspecified osteoporosis type, unspecified pathological fracture presence Chronic constipation Unspecified constipation Benign intracranial hypertension Situational anxiety Other anxiety states Thyroid nodule Nontoxic uninodular goiter Bilateral carotid artery stenosis Occlusion and stenosis of carotid artery without mention of cerebral infarction Pre-operative examination- Primary Preoperative examination, unspecified Nephrolithiasis Calculus of kidney Benign intracranial hypertension Episodic cluster headache, 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 Essential hypertension, benign Oropharyngeal dysphagia Dysphagia, oropharyngeal phase Gastroesophageal reflux disease, unspecified whether esophagitis present 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 and other lower urinary tract symptoms (LUTS) Urinary tract infection associated with indwelling urethral catheter, sequela Nontoxic single thyroid nodule Nontoxic uninodular goiter Acute blood loss anemia Acute posthemorrhagic anemia 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 Compression fracture of L3 vertebra, sequela Osteoporosis, unspecified osteoporosis type, unspecified pathological fracture presence Degenerative scoliosis Situational anxiety Other anxiety states Bilateral carotid artery stenosis Occlusion and stenosis of carotid artery without mention of cerebral infarction Pre-operative examination- Primary Preoperative examination, unspecified Essential hypertension, benign Gastroesophageal reflux disease, unspecified whether esophagitis present Hiatal hernia Diaphragmatic hernia without mention of obstruction or gangrene Osteoporosis, unspecified osteoporosis type, unspecified pathological fracture presence Peripheral edema Edema 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 Situational anxiety Other anxiety states 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 spondylosis without myelopathy Bilateral carotid artery stenosis Occlusion and stenosis of carotid artery without mention of cerebral infarction 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 and other lower urinary tract symptoms (LUTS) Thyroid nodule Nontoxic uninodular goiter Pre-operative examination- Primary Preoperative examination, unspecified Bilateral carotid artery stenosis Occlusion and stenosis of carotid artery without mention of cerebral infarction Essential hypertension, benign Gastroesophageal reflux disease, unspecified whether esophagitis present 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 loss Iron deficiency anemia secondary to blood loss (chronic) Peripheral edema Edema 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 Situational anxiety Other anxiety states Thyroid nodule 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 spondylosis without myelopathy Osteoporosis, unspecified osteoporosis type, unspecified pathological fracture presence Cognitive impairment Unspecified persistent mental disorders due to conditions classified elsewhere 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 and other lower urinary tract symptoms (LUTS) Abnormal SPEP Other nonspecific findings on examination of blood Urinary tract infection without hematuria, site unspecified Dementia without behavioral disturbance (HCC)- Primary Dementia, unspecified, without behavioral disturbance [facility] Diagnosis Degenerative lumbar spinal stenosis- Primary Spinal stenosis, lumbar region, without neurogenic claudication Degenerative scoliosis Acute postoperative pain Other acute postoperative pain S/P lumbar spinal fusion Arthrodesis status Sepsis due to Escherichia coli with acute organ dysfunction and septic shock, unspecified type Essential hypertension, benign Urinary tract infection associated with indwelling urethral catheter, sequela Sepsis due to Gram-negative organism with septic shock ([facility]) Septicemia due to gram-negative organism, unspecified Acute blood loss anemia Acute posthemorrhagic anemia Spontaneous pneumothorax Other pneumothorax Severe protein-calorie malnutrition ([facility]) Other severe protein-calorie malnutrition Acute postoperative respiratory insufficiency Other pulmonary insufficiency, not elsewhere classified, following trauma and surgery Delirium Other alteration of consciousness Hemodynamic instability Other symptoms involving cardiovascular system Oropharyngeal dysphagia Dysphagia, oropharyngeal phase Thrombocytopenia Thrombocytopenia, unspecified Delirium Other alteration of consciousness Hypomagnesemia Disorders of magnesium metabolism Hypophosphataemia Sepsis due to Escherichia coli (E. coli) ([facility]) Septicemia due to Escherichia coli (E. 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 Essential hypertension, benign 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 and other lower urinary tract symptoms (LUTS) 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 Compression fracture of L3 vertebra, sequela Osteoporosis, unspecified osteoporosis type, unspecified pathological fracture presence Chronic constipation Unspecified constipation Benign intracranial hypertension Situational anxiety Other anxiety states Thyroid nodule Nontoxic uninodular goiter Bilateral carotid artery stenosis Occlusion and stenosis of carotid artery without mention of cerebral infarction Pre-operative examination- Primary Preoperative examination, unspecified Nephrolithiasis Calculus of kidney Benign intracranial hypertension Episodic cluster headache, 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 Essential hypertension, benign Oropharyngeal dysphagia Dysphagia, oropharyngeal phase Gastroesophageal reflux disease, unspecified whether esophagitis present 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 and other lower urinary tract symptoms (LUTS) Urinary tract infection associated with indwelling urethral catheter, sequela Nontoxic single thyroid nodule Nontoxic uninodular goiter Acute blood loss anemia Acute posthemorrhagic anemia 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 Compression fracture of L3 vertebra, sequela Osteoporosis, unspecified osteoporosis type, unspecified pathological fracture presence Degenerative scoliosis Situational anxiety Other anxiety states Bilateral carotid artery stenosis Occlusion and stenosis of carotid artery without mention of cerebral infarction Pre-operative examination- Primary Preoperative examination, unspecified Essential hypertension, benign Gastroesophageal reflux disease, unspecified whether esophagitis present Hiatal hernia Diaphragmatic hernia without mention of obstruction or gangrene Osteoporosis, unspecified osteoporosis type, unspecified pathological fracture presence Peripheral edema Edema 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 Situational anxiety Other anxiety states 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 spondylosis without myelopathy Bilateral carotid artery stenosis Occlusion and stenosis of carotid artery without mention of cerebral infarction 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 and other lower urinary tract symptoms (LUTS) Thyroid nodule Nontoxic uninodular goiter Pre-operative examination- Primary Preoperative examination, unspecified Bilateral carotid artery stenosis Occlusion and stenosis of carotid artery without mention of cerebral infarction Essential hypertension, benign Gastroesophageal reflux disease, unspecified whether esophagitis present 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 loss Iron deficiency anemia secondary to blood loss (chronic) Peripheral edema Edema 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 Situational anxiety Other anxiety states Thyroid nodule 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 spondylosis without myelopathy Osteoporosis, unspecified osteoporosis type, unspecified pathological fracture presence Cognitive impairment Unspecified persistent mental disorders due to conditions classified elsewhere 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 and other lower urinary tract symptoms (LUTS) Abnormal SPEP Other nonspecific findings on examination of blood Urinary tract infection without hematuria, site unspecified Cold intolerance- Primary Other general symptoms Rib pain on left side Chest pain, unspecified Iron deficiency anemia, unspecified iron deficiency anemia type Rib pain on left side Chest pain, unspecified [facility] Diagnosis Degenerative lumbar spinal stenosis- Primary Spinal stenosis, lumbar region, without neurogenic claudication Degenerative scoliosis Acute postoperative pain Other acute postoperative pain S/P lumbar spinal fusion Arthrodesis status Sepsis due to Escherichia coli with acute organ dysfunction and septic shock, unspecified type Essential hypertension, benign Urinary tract infection associated with indwelling urethral catheter, sequela Sepsis due to Gram-negative organism with septic shock ([facility]) Septicemia due to gram-negative organism, unspecified Acute blood loss anemia Acute posthemorrhagic anemia Spontaneous pneumothorax Other pneumothorax Severe protein-calorie malnutrition ([facility]) Other severe protein-calorie malnutrition Acute postoperative respiratory insufficiency Other pulmonary insufficiency, not elsewhere classified, following trauma and surgery Delirium Other alteration of consciousness Hemodynamic instability Other symptoms involving cardiovascular system Oropharyngeal dysphagia Dysphagia, oropharyngeal phase Thrombocytopenia Thrombocytopenia, unspecified Delirium Other alteration of consciousness Hypomagnesemia Disorders of magnesium metabolism Hypophosphataemia Sepsis due to Escherichia coli (E. coli) ([facility]) Septicemia due to Escherichia coli (E. 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 Essential hypertension, benign 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 and other lower urinary tract symptoms (LUTS) 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 Compression fracture of L3 vertebra, sequela Osteoporosis, unspecified osteoporosis type, unspecified pathological fracture presence Chronic constipation Unspecified constipation Benign intracranial hypertension Situational anxiety Other anxiety states Thyroid nodule Nontoxic uninodular goiter Bilateral carotid artery stenosis Occlusion and stenosis of carotid artery without mention of cerebral infarction Pre-operative examination- Primary Preoperative examination, unspecified Nephrolithiasis Calculus of kidney Benign intracranial hypertension Episodic cluster headache, 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 Essential hypertension, benign Oropharyngeal dysphagia Dysphagia, oropharyngeal phase Gastroesophageal reflux disease, unspecified whether esophagitis present 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 and other lower urinary tract symptoms (LUTS) Urinary tract infection associated with indwelling urethral catheter, sequela Nontoxic single thyroid nodule Nontoxic uninodular goiter Acute blood loss anemia Acute posthemorrhagic anemia 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 Compression fracture of L3 vertebra, sequela Osteoporosis, unspecified osteoporosis type, unspecified pathological fracture presence Degenerative scoliosis Situational anxiety Other anxiety states Bilateral carotid artery stenosis Occlusion and stenosis of carotid artery without mention of cerebral infarction Pre-operative examination- Primary Preoperative examination, unspecified Essential hypertension, benign Gastroesophageal reflux disease, unspecified whether esophagitis present Hiatal hernia Diaphragmatic hernia without mention of obstruction or gangrene Osteoporosis, unspecified osteoporosis type, unspecified pathological fracture presence Peripheral edema Edema 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 Situational anxiety Other anxiety states 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 spondylosis without myelopathy Bilateral carotid artery stenosis Occlusion and stenosis of carotid artery without mention of cerebral infarction 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 and other lower urinary tract symptoms (LUTS) Thyroid nodule Nontoxic uninodular goiter Pre-operative examination- Primary Preoperative examination, unspecified Bilateral carotid artery stenosis Occlusion and stenosis of carotid artery without mention of cerebral infarction Essential hypertension, benign Gastroesophageal reflux disease, unspecified whether esophagitis present 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 loss Iron deficiency anemia secondary to blood loss (chronic) Peripheral edema Edema 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 Situational anxiety Other anxiety states Thyroid nodule 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 spondylosis without myelopathy Osteoporosis, unspecified osteoporosis type, unspecified pathological fracture presence Cognitive impairment Unspecified persistent mental disorders due to conditions classified elsewhere 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 and other lower urinary tract symptoms (LUTS) Abnormal SPEP Other nonspecific findings on examination of blood Urinary tract infection without hematuria, site unspecified Rib pain on left side Chest pain, unspecified [facility] Diagnosis Degenerative lumbar spinal stenosis- Primary Spinal stenosis, lumbar region, without neurogenic claudication Degenerative scoliosis Acute postoperative pain Other acute postoperative pain S/P lumbar spinal fusion Arthrodesis status Sepsis due to Escherichia coli with acute organ dysfunction and septic shock, unspecified type Essential hypertension, benign Urinary tract infection associated with indwelling urethral catheter, sequela Sepsis due to Gram-negative organism with septic shock (HCC) Septicemia due to gram-negative organism, unspecified Acute blood loss anemia Acute posthemorrhagic anemia Spontaneous pneumothorax Other pneumothorax Severe protein-calorie malnutrition (HCC) Other severe protein-calorie malnutrition Acute postoperative respiratory insufficiency Other pulmonary insufficiency, not elsewhere classified, following trauma and surgery Delirium Other alteration of consciousness Hemodynamic instability Other symptoms involving cardiovascular system Oropharyngeal dysphagia Dysphagia, oropharyngeal phase Thrombocytopenia Thrombocytopenia, unspecified Delirium Other alteration of consciousness Hypomagnesemia Disorders of magnesium metabolism Hypophosphataemia Sepsis due to Escherichia coli (E. coli) (HCC) Septicemia due to Escherichia coli (E. 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 Essential hypertension, benign 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 and other lower urinary tract symptoms (LUTS) 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 Compression fracture of L3 vertebra, sequela Osteoporosis, unspecified osteoporosis type, unspecified pathological fracture presence Chronic constipation Unspecified constipation Benign intracranial hypertension Situational anxiety Other anxiety states Thyroid nodule Nontoxic uninodular goiter Bilateral carotid artery stenosis Occlusion and stenosis of carotid artery without mention of cerebral infarction Pre-operative examination- Primary Preoperative examination, unspecified Nephrolithiasis Calculus of kidney Benign intracranial hypertension Episodic cluster headache, 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 Essential hypertension, benign Oropharyngeal dysphagia Dysphagia, oropharyngeal phase Gastroesophageal reflux disease, unspecified whether esophagitis present 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 and other lower urinary tract symptoms (LUTS) Urinary tract infection associated with indwelling urethral catheter, sequela Nontoxic single thyroid nodule Nontoxic uninodular goiter Acute blood loss anemia Acute posthemorrhagic anemia 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 Compression fracture of L3 vertebra, sequela Osteoporosis, unspecified osteoporosis type, unspecified pathological fracture presence Degenerative scoliosis Situational anxiety Other anxiety states Bilateral carotid artery stenosis Occlusion and stenosis of carotid artery without mention of cerebral infarction Pre-operative examination- Primary Preoperative examination, unspecified Essential hypertension, benign Gastroesophageal reflux disease, unspecified whether esophagitis present Hiatal hernia Diaphragmatic hernia without mention of obstruction or gangrene Osteoporosis, unspecified osteoporosis type, unspecified pathological fracture presence Peripheral edema Edema 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 Situational anxiety Other anxiety states 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 spondylosis without myelopathy Bilateral carotid artery stenosis Occlusion and stenosis of carotid artery without mention of cerebral infarction 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 and other lower urinary tract symptoms (LUTS) Thyroid nodule Nontoxic uninodular goiter Pre-operative examination- Primary Preoperative examination, unspecified Bilateral carotid artery stenosis Occlusion and stenosis of carotid artery without mention of cerebral infarction Essential hypertension, benign Gastroesophageal reflux disease, unspecified whether esophagitis present 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 loss Iron deficiency anemia secondary to blood loss (chronic) Peripheral edema Edema 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 Situational anxiety Other anxiety states Thyroid nodule 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 spondylosis without myelopathy Osteoporosis, unspecified osteoporosis type, unspecified pathological fracture presence Cognitive impairment Unspecified persistent mental disorders due to conditions classified elsewhere 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 and other lower urinary tract symptoms (LUTS) Abnormal SPEP Other nonspecific findings on examination of blood Urinary tract infection without hematuria, site unspecified Iron deficiency anemia, unspecified iron deficiency anemia type- Primary [facility] Diagnosis Degenerative lumbar spinal stenosis- Primary Spinal stenosis, lumbar region, without neurogenic claudication Degenerative scoliosis Acute postoperative pain Other acute postoperative pain S/P lumbar spinal fusion Arthrodesis status Sepsis due to Escherichia coli with acute organ dysfunction and septic shock, unspecified type Essential hypertension, benign Urinary tract infection associated with indwelling urethral catheter, sequela Sepsis due to Gram-negative organism with septic shock (HCC) Septicemia due to gram-negative organism, unspecified Acute blood loss anemia Acute posthemorrhagic anemia Spontaneous pneumothorax Other pneumothorax Severe protein-calorie malnutrition (HCC) Other severe protein-calorie malnutrition Acute postoperative respiratory insufficiency Other pulmonary insufficiency, not elsewhere classified, following trauma and surgery Delirium Other alteration of consciousness Hemodynamic instability Other symptoms involving cardiovascular system Oropharyngeal dysphagia Dysphagia, oropharyngeal phase Thrombocytopenia Thrombocytopenia, unspecified Delirium Other alteration of consciousness Hypomagnesemia Disorders of magnesium metabolism Hypophosphataemia Sepsis due to Escherichia coli (E. coli) (HCC) Septicemia due to Escherichia coli (E. 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 Essential hypertension, benign 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 and other lower urinary tract symptoms (LUTS) 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 Compression fracture of L3 vertebra, sequela Osteoporosis, unspecified osteoporosis type, unspecified pathological fracture presence Chronic constipation Unspecified constipation Benign intracranial hypertension Situational anxiety Other anxiety states Thyroid nodule Nontoxic uninodular goiter Bilateral carotid artery stenosis Occlusion and stenosis of carotid artery without mention of cerebral infarction Pre-operative examination- Primary Preoperative examination, unspecified Nephrolithiasis Calculus of kidney Benign intracranial hypertension Episodic cluster headache, 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 Essential hypertension, benign Oropharyngeal dysphagia Dysphagia, oropharyngeal phase Gastroesophageal reflux disease, unspecified whether esophagitis present 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 and other lower urinary tract symptoms (LUTS) Urinary tract infection associated with indwelling urethral catheter, sequela Nontoxic single thyroid nodule Nontoxic uninodular goiter Acute blood loss anemia Acute posthemorrhagic anemia 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 Compression fracture of L3 vertebra, sequela Osteoporosis, unspecified osteoporosis type, unspecified pathological fracture presence Degenerative scoliosis Situational anxiety Other anxiety states Bilateral carotid artery stenosis Occlusion and stenosis of carotid artery without mention of cerebral infarction Pre-operative examination- Primary Preoperative examination, unspecified Essential hypertension, benign Gastroesophageal reflux disease, unspecified whether esophagitis present Hiatal hernia Diaphragmatic hernia without mention of obstruction or gangrene Osteoporosis, unspecified osteoporosis type, unspecified pathological fracture presence Peripheral edema Edema 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 Situational anxiety Other anxiety states 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 spondylosis without myelopathy Bilateral carotid artery stenosis Occlusion and stenosis of carotid artery without mention of cerebral infarction 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 and other lower urinary tract symptoms (LUTS) Thyroid nodule Nontoxic uninodular goiter Pre-operative examination- Primary Preoperative examination, unspecified Bilateral carotid artery stenosis Occlusion and stenosis of carotid artery without mention of cerebral infarction Essential hypertension, benign Gastroesophageal reflux disease, unspecified whether esophagitis present 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 loss Iron deficiency anemia secondary to blood loss (chronic) Peripheral edema Edema 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 Situational anxiety Other anxiety states Thyroid nodule 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 spondylosis without myelopathy Osteoporosis, unspecified osteoporosis type, unspecified pathological fracture presence Cognitive impairment Unspecified persistent mental disorders due to conditions classified elsewhere 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 and other lower urinary tract symptoms (LUTS) Abnormal SPEP Other nonspecific findings on examination of blood Urinary tract infection without hematuria, site unspecified Iron deficiency anemia, unspecified iron deficiency anemia type [facility] Diagnosis Degenerative lumbar spinal stenosis- Primary Spinal stenosis, lumbar region, without neurogenic claudication Degenerative scoliosis Acute postoperative pain Other acute postoperative pain S/P lumbar spinal fusion Arthrodesis status Sepsis due to Escherichia coli with acute organ dysfunction and septic shock, unspecified type Essential hypertension, benign Urinary tract infection associated with indwelling urethral catheter, sequela Sepsis due to Gram-negative organism with septic shock ([facility]) Septicemia due to gram-negative organism, unspecified Acute blood loss anemia Acute posthemorrhagic anemia Spontaneous pneumothorax Other pneumothorax Severe protein-calorie malnutrition (HCC) Other severe protein-calorie malnutrition Acute postoperative respiratory insufficiency Other pulmonary insufficiency, not elsewhere classified, following trauma and surgery Delirium Other alteration of consciousness Hemodynamic instability Other symptoms involving cardiovascular system Oropharyngeal dysphagia Dysphagia, oropharyngeal phase Thrombocytopenia Thrombocytopenia, unspecified Delirium Other alteration of consciousness Hypomagnesemia Disorders of magnesium metabolism Hypophosphataemia Sepsis due to Escherichia coli (E. coli) ([facility]) Septicemia due to Escherichia coli (E. 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 Essential hypertension, benign 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 and other lower urinary tract symptoms (LUTS) 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 Compression fracture of L3 vertebra, sequela Osteoporosis, unspecified osteoporosis type, unspecified pathological fracture presence Chronic constipation Unspecified constipation Benign intracranial hypertension Situational anxiety Other anxiety states Thyroid nodule Nontoxic uninodular goiter Bilateral carotid artery stenosis Occlusion and stenosis of carotid artery without mention of cerebral infarction Pre-operative examination- Primary Preoperative examination, unspecified Nephrolithiasis Calculus of kidney Benign intracranial hypertension Episodic cluster headache, 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 Essential hypertension, benign Oropharyngeal dysphagia Dysphagia, oropharyngeal phase Gastroesophageal reflux disease, unspecified whether esophagitis present 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 and other lower urinary tract symptoms (LUTS) Urinary tract infection associated with indwelling urethral catheter, sequela Nontoxic single thyroid nodule Nontoxic uninodular goiter Acute blood loss anemia Acute posthemorrhagic anemia 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 Compression fracture of L3 vertebra, sequela Osteoporosis, unspecified osteoporosis type, unspecified pathological fracture presence Degenerative scoliosis Situational anxiety Other anxiety states Bilateral carotid artery stenosis Occlusion and stenosis of carotid artery without mention of cerebral infarction Pre-operative examination- Primary Preoperative examination, unspecified Essential hypertension, benign Gastroesophageal reflux disease, unspecified whether esophagitis present Hiatal hernia Diaphragmatic hernia without mention of obstruction or gangrene Osteoporosis, unspecified osteoporosis type, unspecified pathological fracture presence Peripheral edema Edema 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 Situational anxiety Other anxiety states 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 spondylosis without myelopathy Bilateral carotid artery stenosis Occlusion and stenosis of carotid artery without mention of cerebral infarction 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 and other lower urinary tract symptoms (LUTS) Thyroid nodule Nontoxic uninodular goiter Pre-operative examination- Primary Preoperative examination, unspecified Bilateral carotid artery stenosis Occlusion and stenosis of carotid artery without mention of cerebral infarction Essential hypertension, benign Gastroesophageal reflux disease, unspecified whether esophagitis present 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 loss Iron deficiency anemia secondary to blood loss (chronic) Peripheral edema Edema 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 Situational anxiety Other anxiety states Thyroid nodule 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 spondylosis without myelopathy Osteoporosis, unspecified osteoporosis type, unspecified pathological fracture presence Cognitive impairment Unspecified persistent mental disorders due to conditions classified elsewhere 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 and other lower urinary tract symptoms (LUTS) Abnormal SPEP Other nonspecific findings on examination of blood Urinary tract infection without hematuria, site unspecified Situational depression- Primary Adjustment disorder with depressed mood Dementia without behavioral disturbance (HCC) Dementia, unspecified, without behavioral disturbance [facility] Diagnosis Degenerative lumbar spinal stenosis- Primary Spinal stenosis, lumbar region, without neurogenic claudication Degenerative scoliosis Acute postoperative pain Other acute postoperative pain S/P lumbar spinal fusion Arthrodesis status Sepsis due to Escherichia coli with acute organ dysfunction and septic shock, unspecified type Essential hypertension, benign Urinary tract infection associated with indwelling urethral catheter, sequela Sepsis due to Gram-negative organism with septic shock (HCC) Septicemia due to gram-negative organism, unspecified Acute blood loss anemia Acute posthemorrhagic anemia Spontaneous pneumothorax Other pneumothorax Severe protein-calorie malnutrition (HCC) Other severe protein-calorie malnutrition Acute postoperative respiratory insufficiency Other pulmonary insufficiency, not elsewhere classified, following trauma and surgery Delirium Other alteration of consciousness Hemodynamic instability Other symptoms involving cardiovascular system Oropharyngeal dysphagia Dysphagia, oropharyngeal phase Thrombocytopenia Thrombocytopenia, unspecified Delirium Other alteration of consciousness Hypomagnesemia Disorders of magnesium metabolism Hypophosphataemia Sepsis due to Escherichia coli (E. coli) ([facility]) Septicemia due to Escherichia coli (E. 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 Essential hypertension, benign 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 and other lower urinary tract symptoms (LUTS) 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 Compression fracture of L3 vertebra, sequela Osteoporosis, unspecified osteoporosis type, unspecified pathological fracture presence Chronic constipation Unspecified constipation Benign intracranial hypertension Situational anxiety Other anxiety states Thyroid nodule Nontoxic uninodular goiter Bilateral carotid artery stenosis Occlusion and stenosis of carotid artery without mention of cerebral infarction Pre-operative examination- Primary Preoperative examination, unspecified Nephrolithiasis Calculus of kidney Benign intracranial hypertension Episodic cluster headache, 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 Essential hypertension, benign Oropharyngeal dysphagia Dysphagia, oropharyngeal phase Gastroesophageal reflux disease, unspecified whether esophagitis present 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 and other lower urinary tract symptoms (LUTS) Urinary tract infection associated with indwelling urethral catheter, sequela Nontoxic single thyroid nodule Nontoxic uninodular goiter Acute blood loss anemia Acute posthemorrhagic anemia 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 Compression fracture of L3 vertebra, sequela Osteoporosis, unspecified osteoporosis type, unspecified pathological fracture presence Degenerative scoliosis Situational anxiety Other anxiety states Bilateral carotid artery stenosis Occlusion and stenosis of carotid artery without mention of cerebral infarction Pre-operative examination- Primary Preoperative examination, unspecified Essential hypertension, benign Gastroesophageal reflux disease, unspecified whether esophagitis present Hiatal hernia Diaphragmatic hernia without mention of obstruction or gangrene Osteoporosis, unspecified osteoporosis type, unspecified pathological fracture presence Peripheral edema Edema 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 Situational anxiety Other anxiety states 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 spondylosis without myelopathy Bilateral carotid artery stenosis Occlusion and stenosis of carotid artery without mention of cerebral infarction 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 and other lower urinary tract symptoms (LUTS) Thyroid nodule Nontoxic uninodular goiter Pre-operative examination- Primary Preoperative examination, unspecified Bilateral carotid artery stenosis Occlusion and stenosis of carotid artery without mention of cerebral infarction Essential hypertension, benign Gastroesophageal reflux disease, unspecified whether esophagitis present 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 loss Iron deficiency anemia secondary to blood loss (chronic) Peripheral edema Edema 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 Situational anxiety Other anxiety states Thyroid nodule 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 spondylosis without myelopathy Osteoporosis, unspecified osteoporosis type, unspecified pathological fracture presence Cognitive impairment Unspecified persistent mental disorders due to conditions classified elsewhere 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 and other lower urinary tract symptoms (LUTS) Abnormal SPEP Other nonspecific findings on examination of blood Urinary tract infection without hematuria, site unspecified Iron deficiency anemia, unspecified iron deficiency anemia type- Primary [facility] Diagnosis Degenerative lumbar spinal stenosis- Primary Spinal stenosis, lumbar region, without neurogenic claudication Degenerative scoliosis Acute postoperative pain Other acute postoperative pain S/P lumbar spinal fusion Arthrodesis status Sepsis due to Escherichia coli with acute organ dysfunction and septic shock, unspecified type Essential hypertension, benign Urinary tract infection associated with indwelling urethral catheter, sequela Sepsis due to Gram-negative organism with septic shock ([facility]) Septicemia due to gram-negative organism, unspecified Acute blood loss anemia Acute posthemorrhagic anemia Spontaneous pneumothorax Other pneumothorax Severe protein-calorie malnutrition (HCC) Other severe protein-calorie malnutrition Acute postoperative respiratory insufficiency Other pulmonary insufficiency, not elsewhere classified, following trauma and surgery Delirium Other alteration of consciousness Hemodynamic instability Other symptoms involving cardiovascular system Oropharyngeal dysphagia Dysphagia, oropharyngeal phase Thrombocytopenia Thrombocytopenia, unspecified Delirium Other alteration of consciousness Hypomagnesemia Disorders of magnesium metabolism Hypophosphataemia Sepsis due to Escherichia coli (E. coli) ([facility]) Septicemia due to Escherichia coli (E. 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 Essential hypertension, benign 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 and other lower urinary tract symptoms (LUTS) 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 Compression fracture of L3 vertebra, sequela Osteoporosis, unspecified osteoporosis type, unspecified pathological fracture presence Chronic constipation Unspecified constipation Benign intracranial hypertension Situational anxiety Other anxiety states Thyroid nodule Nontoxic uninodular goiter Bilateral carotid artery stenosis Occlusion and stenosis of carotid artery without mention of cerebral infarction Pre-operative examination- Primary Preoperative examination, unspecified Nephrolithiasis Calculus of kidney Benign intracranial hypertension Episodic cluster headache, 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 Essential hypertension, benign Oropharyngeal dysphagia Dysphagia, oropharyngeal phase Gastroesophageal reflux disease, unspecified whether esophagitis present 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 and other lower urinary tract symptoms (LUTS) Urinary tract infection associated with indwelling urethral catheter, sequela Nontoxic single thyroid nodule Nontoxic uninodular goiter Acute blood loss anemia Acute posthemorrhagic anemia 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 Compression fracture of L3 vertebra, sequela Osteoporosis, unspecified osteoporosis type, unspecified pathological fracture presence Degenerative scoliosis Situational anxiety Other anxiety states Bilateral carotid artery stenosis Occlusion and stenosis of carotid artery without mention of cerebral infarction Pre-operative examination- Primary Preoperative examination, unspecified Essential hypertension, benign Gastroesophageal reflux disease, unspecified whether esophagitis present Hiatal hernia Diaphragmatic hernia without mention of obstruction or gangrene Osteoporosis, unspecified osteoporosis type, unspecified pathological fracture presence Peripheral edema Edema 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 Situational anxiety Other anxiety states 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 spondylosis without myelopathy Bilateral carotid artery stenosis Occlusion and stenosis of carotid artery without mention of cerebral infarction 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 and other lower urinary tract symptoms (LUTS) Thyroid nodule Nontoxic uninodular goiter Pre-operative examination- Primary Preoperative examination, unspecified Bilateral carotid artery stenosis Occlusion and stenosis of carotid artery without mention of cerebral infarction Essential hypertension, benign Gastroesophageal reflux disease, unspecified whether esophagitis present 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 loss Iron deficiency anemia secondary to blood loss (chronic) Peripheral edema Edema 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 Situational anxiety Other anxiety states Thyroid nodule 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 spondylosis without myelopathy Osteoporosis, unspecified osteoporosis type, unspecified pathological fracture presence Cognitive impairment Unspecified persistent mental disorders due to conditions classified elsewhere 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 and other lower urinary tract symptoms (LUTS) Abnormal SPEP Other nonspecific findings on examination of blood Urinary tract infection without hematuria, site unspecified Iron deficiency anemia, unspecified iron deficiency anemia type- Primary documented in this encounter [facility] note* Diagnosis Degenerative lumbar spinal stenosis- Primary Spinal stenosis, lumbar region, without neurogenic claudication Degenerative scoliosis Acute postoperative pain Other acute postoperative pain S/P lumbar spinal fusion Arthrodesis status Sepsis due to Escherichia coli with acute organ dysfunction and septic shock, unspecified type Essential hypertension, benign Urinary tract infection associated with indwelling urethral catheter, sequela Sepsis due to Gram-negative organism with septic shock (HCC) Septicemia due to gram-negative organism, unspecified Acute blood loss anemia Acute posthemorrhagic anemia Spontaneous pneumothorax Other pneumothorax Severe protein-calorie malnutrition (HCC) Other severe protein-calorie malnutrition Acute postoperative respiratory insufficiency Other pulmonary insufficiency, not elsewhere classified, following trauma and surgery Delirium Other alteration of consciousness Hemodynamic instability Other symptoms involving cardiovascular system Oropharyngeal dysphagia Dysphagia, oropharyngeal phase Thrombocytopenia Thrombocytopenia, unspecified Delirium Other alteration of consciousness Hypomagnesemia Disorders of magnesium metabolism Hypophosphataemia Sepsis due to Escherichia coli (E. coli) ([facility]) Septicemia due to Escherichia coli (E. 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 Essential hypertension, benign 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 and other lower urinary tract symptoms (LUTS) 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 Compression fracture of L3 vertebra, sequela Osteoporosis, unspecified osteoporosis type, unspecified pathological fracture presence Chronic constipation Unspecified constipation Benign intracranial hypertension Situational anxiety Other anxiety states Thyroid nodule Nontoxic uninodular goiter Bilateral carotid artery stenosis Occlusion and stenosis of carotid artery without mention of cerebral infarction Pre-operative examination- Primary Preoperative examination, unspecified Nephrolithiasis Calculus of kidney Benign intracranial hypertension Episodic cluster headache, 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 Essential hypertension, benign Oropharyngeal dysphagia Dysphagia, oropharyngeal phase Gastroesophageal reflux disease, unspecified whether esophagitis present 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 and other lower urinary tract symptoms (LUTS) Urinary tract infection associated with indwelling urethral catheter, sequela Nontoxic single thyroid nodule Nontoxic uninodular goiter Acute blood loss anemia Acute posthemorrhagic anemia 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 Compression fracture of L3 vertebra, sequela Osteoporosis, unspecified osteoporosis type, unspecified pathological fracture presence Degenerative scoliosis Situational anxiety Other anxiety states Bilateral carotid artery stenosis Occlusion and stenosis of carotid artery without mention of cerebral infarction Pre-operative examination- Primary Preoperative examination, unspecified Essential hypertension, benign Gastroesophageal reflux disease, unspecified whether esophagitis present Hiatal hernia Diaphragmatic hernia without mention of obstruction or gangrene Osteoporosis, unspecified osteoporosis type, unspecified pathological fracture presence Peripheral edema Edema 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 Situational anxiety Other anxiety states 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 spondylosis without myelopathy Bilateral carotid artery stenosis Occlusion and stenosis of carotid artery without mention of cerebral infarction 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 and other lower urinary tract symptoms (LUTS) Thyroid nodule Nontoxic uninodular goiter Pre-operative examination- Primary Preoperative examination, unspecified Bilateral carotid artery stenosis Occlusion and stenosis of carotid artery without mention of cerebral infarction Essential hypertension, benign Gastroesophageal reflux disease, unspecified whether esophagitis present 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 loss Iron deficiency anemia secondary to blood loss (chronic) Peripheral edema Edema 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 Situational anxiety Other anxiety states Thyroid nodule 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 spondylosis without myelopathy Osteoporosis, unspecified osteoporosis type, unspecified pathological fracture presence Cognitive impairment Unspecified persistent mental disorders due to conditions classified elsewhere 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 and other lower urinary tract symptoms (LUTS) Abnormal SPEP Other nonspecific findings on examination of blood Urinary tract infection without hematuria, site unspecified Iron deficiency anemia, unspecified iron deficiency anemia type- [facility] Degenerative lumbar spinal stenosis- Primary Spinal stenosis, lumbar region, without neurogenic claudication Degenerative scoliosis Acute postoperative pain Other acute postoperative pain S/P lumbar spinal fusion Arthrodesis status Sepsis due to Escherichia coli with acute organ dysfunction and septic shock, unspecified type Essential hypertension, benign Urinary tract infection associated with indwelling urethral catheter, sequela Sepsis due to Gram-negative organism with septic shock (HCC) Septicemia due to gram-negative organism, unspecified Acute blood loss anemia Acute posthemorrhagic anemia Spontaneous pneumothorax Other pneumothorax Severe protein-calorie malnutrition (HCC) Other severe protein-calorie malnutrition Acute postoperative respiratory insufficiency Other pulmonary insufficiency, not elsewhere classified, following trauma and surgery Delirium Other alteration of consciousness Hemodynamic instability Other symptoms involving cardiovascular system Oropharyngeal dysphagia Dysphagia, oropharyngeal phase Thrombocytopenia Thrombocytopenia, unspecified Delirium Other alteration of consciousness Hypomagnesemia Disorders of magnesium metabolism Hypophosphataemia Sepsis due to Escherichia coli (E. coli) ([facility]) Septicemia due to Escherichia coli (E. 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 Essential hypertension, benign 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 and other lower urinary tract symptoms (LUTS) 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 Compression fracture of L3 vertebra, sequela Osteoporosis, unspecified osteoporosis type, unspecified pathological fracture presence Chronic constipation Unspecified constipation Benign intracranial hypertension Situational anxiety Other anxiety states Thyroid nodule Nontoxic uninodular goiter Bilateral carotid artery stenosis Occlusion and stenosis of carotid artery without mention of cerebral infarction Pre-operative examination- Primary Preoperative examination, unspecified Nephrolithiasis Calculus of kidney Benign intracranial hypertension Episodic cluster headache, 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 Essential hypertension, benign Oropharyngeal dysphagia Dysphagia, oropharyngeal phase Gastroesophageal reflux disease, unspecified whether esophagitis present 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 and other lower urinary tract symptoms (LUTS) Urinary tract infection associated with indwelling urethral catheter, sequela Nontoxic single thyroid nodule Nontoxic uninodular goiter Acute blood loss anemia Acute posthemorrhagic anemia 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 Compression fracture of L3 vertebra, sequela Osteoporosis, unspecified osteoporosis type, unspecified pathological fracture presence Degenerative scoliosis Situational anxiety Other anxiety states Bilateral carotid artery stenosis Occlusion and stenosis of carotid artery without mention of cerebral infarction Pre-operative examination- Primary Preoperative examination, unspecified Essential hypertension, benign Gastroesophageal reflux disease, unspecified whether esophagitis present Hiatal hernia Diaphragmatic hernia without mention of obstruction or gangrene Osteoporosis, unspecified osteoporosis type, unspecified pathological fracture presence Peripheral edema Edema 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 Situational anxiety Other anxiety states 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 spondylosis without myelopathy Bilateral carotid artery stenosis Occlusion and stenosis of carotid artery without mention of cerebral infarction 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 and other lower urinary tract symptoms (LUTS) Thyroid nodule Nontoxic uninodular goiter Pre-operative examination- Primary Preoperative examination, unspecified Bilateral carotid artery stenosis Occlusion and stenosis of carotid artery without mention of cerebral infarction Essential hypertension, benign Gastroesophageal reflux disease, unspecified whether esophagitis present 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 loss Iron deficiency anemia secondary to blood loss (chronic) Peripheral edema Edema 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 Situational anxiety Other anxiety states Thyroid nodule 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 spondylosis without myelopathy Osteoporosis, unspecified osteoporosis type, unspecified pathological fracture presence Cognitive impairment Unspecified persistent mental disorders due to conditions classified elsewhere 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 and other lower urinary tract symptoms (LUTS) Abnormal SPEP Other nonspecific findings on examination of blood Urinary tract infection without hematuria, site unspecified Iron deficiency anemia, unspecified iron deficiency anemia type- [facility] Diagnosis Degenerative lumbar spinal stenosis- Primary Spinal stenosis, lumbar region, without neurogenic claudication Degenerative scoliosis Acute postoperative pain Other acute postoperative pain S/P lumbar spinal fusion Arthrodesis status Sepsis due to Escherichia coli with acute organ dysfunction and septic shock, unspecified type Essential hypertension, benign Urinary tract infection associated with indwelling urethral catheter, sequela Sepsis due to Gram-negative organism with septic shock (HCC) Septicemia due to gram-negative organism, unspecified Acute blood loss anemia Acute posthemorrhagic anemia Spontaneous pneumothorax Other pneumothorax Severe protein-calorie malnutrition (HCC) Other severe protein-calorie malnutrition Acute postoperative respiratory insufficiency Other pulmonary insufficiency, not elsewhere classified, following trauma and surgery Delirium Other alteration of consciousness Hemodynamic instability Other symptoms involving cardiovascular system Oropharyngeal dysphagia Dysphagia, oropharyngeal phase Thrombocytopenia Thrombocytopenia, unspecified Delirium Other alteration of consciousness Hypomagnesemia Disorders of magnesium metabolism Hypophosphataemia Sepsis due to Escherichia coli (E. coli) ([facility]) Septicemia due to Escherichia coli (E. 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 Essential hypertension, benign 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 and other lower urinary tract symptoms (LUTS) 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 Compression fracture of L3 vertebra, sequela Osteoporosis, unspecified osteoporosis type, unspecified pathological fracture presence Chronic constipation Unspecified constipation Benign intracranial hypertension Situational anxiety Other anxiety states Thyroid nodule Nontoxic uninodular goiter Bilateral carotid artery stenosis Occlusion and stenosis of carotid artery without mention of cerebral infarction Pre-operative examination- Primary Preoperative examination, unspecified Nephrolithiasis Calculus of kidney Benign intracranial hypertension Episodic cluster headache, 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 Essential hypertension, benign Oropharyngeal dysphagia Dysphagia, oropharyngeal phase Gastroesophageal reflux disease, unspecified whether esophagitis present 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 and other lower urinary tract symptoms (LUTS) Urinary tract infection associated with indwelling urethral catheter, sequela Nontoxic single thyroid nodule Nontoxic uninodular goiter Acute blood loss anemia Acute posthemorrhagic anemia 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 Compression fracture of L3 vertebra, sequela Osteoporosis, unspecified osteoporosis type, unspecified pathological fracture presence Degenerative scoliosis Situational anxiety Other anxiety states Bilateral carotid artery stenosis Occlusion and stenosis of carotid artery without mention of cerebral infarction Pre-operative examination- Primary Preoperative examination, unspecified Essential hypertension, benign Gastroesophageal reflux disease, unspecified whether esophagitis present Hiatal hernia Diaphragmatic hernia without mention of obstruction or gangrene Osteoporosis, unspecified osteoporosis type, unspecified pathological fracture presence Peripheral edema Edema 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 Situational anxiety Other anxiety states 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 spondylosis without myelopathy Bilateral carotid artery stenosis Occlusion and stenosis of carotid artery without mention of cerebral infarction 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 and other lower urinary tract symptoms (LUTS) Thyroid nodule Nontoxic uninodular goiter Pre-operative examination- Primary Preoperative examination, unspecified Bilateral carotid artery stenosis Occlusion and stenosis of carotid artery without mention of cerebral infarction Essential hypertension, benign Gastroesophageal reflux disease, unspecified whether esophagitis present 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 loss Iron deficiency anemia secondary to blood loss (chronic) Peripheral edema Edema 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 Situational anxiety Other anxiety states Thyroid nodule 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 spondylosis without myelopathy Osteoporosis, unspecified osteoporosis type, unspecified pathological fracture presence Cognitive impairment Unspecified persistent mental disorders due to conditions classified elsewhere 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 and other lower urinary tract symptoms (LUTS) Abnormal SPEP Other nonspecific findings on examination of blood Urinary tract infection without hematuria, site unspecified Iron deficiency anemia, unspecified iron deficiency anemia type- [facility] Diagnosis Degenerative lumbar spinal stenosis- Primary Spinal stenosis, lumbar region, without neurogenic claudication Degenerative scoliosis Acute postoperative pain Other acute postoperative pain S/P lumbar spinal fusion Arthrodesis status Sepsis due to Escherichia coli with acute organ dysfunction and septic shock, unspecified type Essential hypertension, benign Urinary tract infection associated with indwelling urethral catheter, sequela Sepsis due to Gram-negative organism with septic shock (HCC) Septicemia due to gram-negative organism, unspecified Acute blood loss anemia Acute posthemorrhagic anemia Spontaneous pneumothorax Other pneumothorax Severe protein-calorie malnutrition (HCC) Other severe protein-calorie malnutrition Acute postoperative respiratory insufficiency Other pulmonary insufficiency, not elsewhere classified, following trauma and surgery Delirium Other alteration of consciousness Hemodynamic instability Other symptoms involving cardiovascular system Oropharyngeal dysphagia Dysphagia, oropharyngeal phase Thrombocytopenia Thrombocytopenia, unspecified Delirium Other alteration of consciousness Hypomagnesemia Disorders of magnesium metabolism Hypophosphataemia Sepsis due to Escherichia coli (E. coli) (HCC) Septicemia due to Escherichia coli (E. coli) Sepsis due to Gram-negative organism with septic shock (HCC) Septicemia due to gram-negative organism, unspecified Acute postoperative respiratory insufficiency Other pulmonary insufficiency, not elsewhere classified, following trauma and surgery BRITTANY (acute kidney injury) ([facility]) Acute kidney failure, unspecified Pre-operative examination- Primary Preoperative examination, unspecified Degenerative scoliosis Episodic cluster headache, 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 Essential hypertension, benign 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 and other lower urinary tract symptoms (LUTS) 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 Compression fracture of L3 vertebra, sequela Osteoporosis, unspecified osteoporosis type, unspecified pathological fracture presence Chronic constipation Unspecified constipation Benign intracranial hypertension Situational anxiety Other anxiety states Thyroid nodule Nontoxic uninodular goiter Bilateral carotid artery stenosis Occlusion and stenosis of carotid artery without mention of cerebral infarction Pre-operative examination- Primary Preoperative examination, unspecified Nephrolithiasis Calculus of kidney Benign intracranial hypertension Episodic cluster headache, 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 Essential hypertension, benign Oropharyngeal dysphagia Dysphagia, oropharyngeal phase Gastroesophageal reflux disease, unspecified whether esophagitis present 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 and other lower urinary tract symptoms (LUTS) Urinary tract infection associated with indwelling urethral catheter, sequela Nontoxic single thyroid nodule Nontoxic uninodular goiter Acute blood loss anemia Acute posthemorrhagic anemia 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 Compression fracture of L3 vertebra, sequela Osteoporosis, unspecified osteoporosis type, unspecified pathological fracture presence Degenerative scoliosis Situational anxiety Other anxiety states Bilateral carotid artery stenosis Occlusion and stenosis of carotid artery without mention of cerebral infarction Pre-operative examination- Primary Preoperative examination, unspecified Essential hypertension, benign Gastroesophageal reflux disease, unspecified whether esophagitis present Hiatal hernia Diaphragmatic hernia without mention of obstruction or gangrene Osteoporosis, unspecified osteoporosis type, unspecified pathological fracture presence Peripheral edema Edema 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 Situational anxiety Other anxiety states 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 spondylosis without myelopathy Bilateral carotid artery stenosis Occlusion and stenosis of carotid artery without mention of cerebral infarction 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 and other lower urinary tract symptoms (LUTS) Thyroid nodule Nontoxic uninodular goiter Pre-operative examination- Primary Preoperative examination, unspecified Bilateral carotid artery stenosis Occlusion and stenosis of carotid artery without mention of cerebral infarction Essential hypertension, benign Gastroesophageal reflux disease, unspecified whether esophagitis present 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 loss Iron deficiency anemia secondary to blood loss (chronic) Peripheral edema Edema 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 Situational anxiety Other anxiety states Thyroid nodule 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 spondylosis without myelopathy Osteoporosis, unspecified osteoporosis type, unspecified pathological fracture presence Cognitive impairment Unspecified persistent mental disorders due to conditions classified elsewhere 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 and other lower urinary tract symptoms (LUTS) Abnormal SPEP Other nonspecific findings on examination of blood Urinary tract infection without hematuria, site unspecified Rib pain on left side- Primary Chest pain, unspecified Situational depression Adjustment disorder with depressed mood Chronic constipation Unspecified constipation Elevated blood sugar Other abnormal glucose Essential hypertension, benign Gastroesophageal reflux disease, unspecified whether esophagitis present Thyroid nodule Nontoxic uninodular goiter Medication management Encounter for long-term (current) use of other medications Iron deficiency anemia, unspecified iron deficiency anemia type [facility] Diagnosis Degenerative lumbar spinal stenosis- Primary Spinal stenosis, lumbar region, without neurogenic claudication Degenerative scoliosis Acute postoperative pain Other acute postoperative pain S/P lumbar spinal fusion Arthrodesis status Sepsis due to Escherichia coli with acute organ dysfunction and septic shock, unspecified type Essential hypertension, benign Urinary tract infection associated with indwelling urethral catheter, sequela Sepsis due to Gram-negative organism with septic shock ([facility]) Septicemia due to gram-negative organism, unspecified Acute blood loss anemia Acute posthemorrhagic anemia Spontaneous pneumothorax Other pneumothorax Severe protein-calorie malnutrition ([facility]) Other severe protein-calorie malnutrition Acute postoperative respiratory insufficiency Other pulmonary insufficiency, not elsewhere classified, following trauma and surgery Delirium Other alteration of consciousness Hemodynamic instability Other symptoms involving cardiovascular system Oropharyngeal dysphagia Dysphagia, oropharyngeal phase Thrombocytopenia Thrombocytopenia, unspecified Delirium Other alteration of consciousness Hypomagnesemia Disorders of magnesium metabolism Hypophosphataemia Sepsis due to Escherichia coli (E. coli) ([facility]) Septicemia due to Escherichia coli (E. 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 Essential hypertension, benign 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 and other lower urinary tract symptoms (LUTS) 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 Compression fracture of L3 vertebra, sequela Osteoporosis, unspecified osteoporosis type, unspecified pathological fracture presence Chronic constipation Unspecified constipation Benign intracranial hypertension Situational anxiety Other anxiety states Thyroid nodule Nontoxic uninodular goiter Bilateral carotid artery stenosis Occlusion and stenosis of carotid artery without mention of cerebral infarction Pre-operative examination- Primary Preoperative examination, unspecified Nephrolithiasis Calculus of kidney Benign intracranial hypertension Episodic cluster headache, 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 Essential hypertension, benign Oropharyngeal dysphagia Dysphagia, oropharyngeal phase Gastroesophageal reflux disease, unspecified whether esophagitis present 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 and other lower urinary tract symptoms (LUTS) Urinary tract infection associated with indwelling urethral catheter, sequela Nontoxic single thyroid nodule Nontoxic uninodular goiter Acute blood loss anemia Acute posthemorrhagic anemia 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 Compression fracture of L3 vertebra, sequela Osteoporosis, unspecified osteoporosis type, unspecified pathological fracture presence Degenerative scoliosis Situational anxiety Other anxiety states Bilateral carotid artery stenosis Occlusion and stenosis of carotid artery without mention of cerebral infarction Pre-operative examination- Primary Preoperative examination, unspecified Essential hypertension, benign Gastroesophageal reflux disease, unspecified whether esophagitis present Hiatal hernia Diaphragmatic hernia without mention of obstruction or gangrene Osteoporosis, unspecified osteoporosis type, unspecified pathological fracture presence Peripheral edema Edema 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 Situational anxiety Other anxiety states 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 spondylosis without myelopathy Bilateral carotid artery stenosis Occlusion and stenosis of carotid artery without mention of cerebral infarction 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 and other lower urinary tract symptoms (LUTS) Thyroid nodule Nontoxic uninodular goiter Pre-operative examination- Primary Preoperative examination, unspecified Bilateral carotid artery stenosis Occlusion and stenosis of carotid artery without mention of cerebral infarction Essential hypertension, benign Gastroesophageal reflux disease, unspecified whether esophagitis present 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 loss Iron deficiency anemia secondary to blood loss (chronic) Peripheral edema Edema 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 Situational anxiety Other anxiety states Thyroid nodule 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 spondylosis without myelopathy Osteoporosis, unspecified osteoporosis type, unspecified pathological fracture presence Cognitive impairment Unspecified persistent mental disorders due to conditions classified elsewhere 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 and other lower urinary tract symptoms (LUTS) Abnormal SPEP Other nonspecific findings on examination of blood Urinary tract infection without hematuria, site unspecified Gastroesophageal reflux disease, unspecified whether esophagitis present [facility] Diagnosis Degenerative lumbar spinal stenosis- Primary Spinal stenosis, lumbar region, without neurogenic claudication Degenerative scoliosis Acute postoperative pain Other acute postoperative pain S/P lumbar spinal fusion Arthrodesis status Sepsis due to Escherichia coli with acute organ dysfunction and septic shock, unspecified type Essential hypertension, benign Urinary tract infection associated with indwelling urethral catheter, sequela Sepsis due to Gram-negative organism with septic shock ([facility]) Septicemia due to gram-negative organism, unspecified Acute blood loss anemia Acute posthemorrhagic anemia Spontaneous pneumothorax Other pneumothorax Severe protein-calorie malnutrition (HCC) Other severe protein-calorie malnutrition Acute postoperative respiratory insufficiency Other pulmonary insufficiency, not elsewhere classified, following trauma and surgery Delirium Other alteration of consciousness Hemodynamic instability Other symptoms involving cardiovascular system Oropharyngeal dysphagia Dysphagia, oropharyngeal phase Thrombocytopenia Thrombocytopenia, unspecified Delirium Other alteration of consciousness Hypomagnesemia Disorders of magnesium metabolism Hypophosphataemia Sepsis due to Escherichia coli (E. coli) ([facility]) Septicemia due to Escherichia coli (E. 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 Essential hypertension, benign 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 and other lower urinary tract symptoms (LUTS) 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 Compression fracture of L3 vertebra, sequela Osteoporosis, unspecified osteoporosis type, unspecified pathological fracture presence Chronic constipation Unspecified constipation Benign intracranial hypertension Situational anxiety Other anxiety states Thyroid nodule Nontoxic uninodular goiter Bilateral carotid artery stenosis Occlusion and stenosis of carotid artery without mention of cerebral infarction Pre-operative examination- Primary Preoperative examination, unspecified Nephrolithiasis Calculus of kidney Benign intracranial hypertension Episodic cluster headache, 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 Essential hypertension, benign Oropharyngeal dysphagia Dysphagia, oropharyngeal phase Gastroesophageal reflux disease, unspecified whether esophagitis present 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 and other lower urinary tract symptoms (LUTS) Urinary tract infection associated with indwelling urethral catheter, sequela Nontoxic single thyroid nodule Nontoxic uninodular goiter Acute blood loss anemia Acute posthemorrhagic anemia 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 Compression fracture of L3 vertebra, sequela Osteoporosis, unspecified osteoporosis type, unspecified pathological fracture presence Degenerative scoliosis Situational anxiety Other anxiety states Bilateral carotid artery stenosis Occlusion and stenosis of carotid artery without mention of cerebral infarction Pre-operative examination- Primary Preoperative examination, unspecified Essential hypertension, benign Gastroesophageal reflux disease, unspecified whether esophagitis present Hiatal hernia Diaphragmatic hernia without mention of obstruction or gangrene Osteoporosis, unspecified osteoporosis type, unspecified pathological fracture presence Peripheral edema Edema 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 Situational anxiety Other anxiety states 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 spondylosis without myelopathy Bilateral carotid artery stenosis Occlusion and stenosis of carotid artery without mention of cerebral infarction 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 and other lower urinary tract symptoms (LUTS) Thyroid nodule Nontoxic uninodular goiter Pre-operative examination- Primary Preoperative examination, unspecified Bilateral carotid artery stenosis Occlusion and stenosis of carotid artery without mention of cerebral infarction Essential hypertension, benign Gastroesophageal reflux disease, unspecified whether esophagitis present 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 loss Iron deficiency anemia secondary to blood loss (chronic) Peripheral edema Edema 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 Situational anxiety Other anxiety states Thyroid nodule 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 spondylosis without myelopathy Osteoporosis, unspecified osteoporosis type, unspecified pathological fracture presence Cognitive impairment Unspecified persistent mental disorders due to conditions classified elsewhere 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 and other lower urinary tract symptoms (LUTS) Abnormal SPEP Other nonspecific findings on examination of blood Urinary tract infection without hematuria, site unspecified Rib pain on left side Chest pain, unspecified [facility] Diagnosis Degenerative lumbar spinal stenosis- Primary Spinal stenosis, lumbar region, without neurogenic claudication Degenerative scoliosis Acute postoperative pain Other acute postoperative pain S/P lumbar spinal fusion Arthrodesis status Sepsis due to Escherichia coli with acute organ dysfunction and septic shock, unspecified type Essential hypertension, benign Urinary tract infection associated with indwelling urethral catheter, sequela Sepsis due to Gram-negative organism with septic shock (HCC) Septicemia due to gram-negative organism, unspecified Acute blood loss anemia Acute posthemorrhagic anemia Spontaneous pneumothorax Other pneumothorax Severe protein-calorie malnutrition (HCC) Other severe protein-calorie malnutrition Acute postoperative respiratory insufficiency Other pulmonary insufficiency, not elsewhere classified, following trauma and surgery Delirium Other alteration of consciousness Hemodynamic instability Other symptoms involving cardiovascular system Oropharyngeal dysphagia Dysphagia, oropharyngeal phase Thrombocytopenia Thrombocytopenia, unspecified Delirium Other alteration of consciousness Hypomagnesemia Disorders of magnesium metabolism Hypophosphataemia Sepsis due to Escherichia coli (E. coli) ([facility]) Septicemia due to Escherichia coli (E. 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 Essential hypertension, benign 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 and other lower urinary tract symptoms (LUTS) 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 Compression fracture of L3 vertebra, sequela Osteoporosis, unspecified osteoporosis type, unspecified pathological fracture presence Chronic constipation Unspecified constipation Benign intracranial hypertension Situational anxiety Other anxiety states Thyroid nodule Nontoxic uninodular goiter Bilateral carotid artery stenosis Occlusion and stenosis of carotid artery without mention of cerebral infarction Pre-operative examination- Primary Preoperative examination, unspecified Nephrolithiasis Calculus of kidney Benign intracranial hypertension Episodic cluster headache, 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 Essential hypertension, benign Oropharyngeal dysphagia Dysphagia, oropharyngeal phase Gastroesophageal reflux disease, unspecified whether esophagitis present 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 and other lower urinary tract symptoms (LUTS) Urinary tract infection associated with indwelling urethral catheter, sequela Nontoxic single thyroid nodule Nontoxic uninodular goiter Acute blood loss anemia Acute posthemorrhagic anemia 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 Compression fracture of L3 vertebra, sequela Osteoporosis, unspecified osteoporosis type, unspecified pathological fracture presence Degenerative scoliosis Situational anxiety Other anxiety states Bilateral carotid artery stenosis Occlusion and stenosis of carotid artery without mention of cerebral infarction Pre-operative examination- Primary Preoperative examination, unspecified Essential hypertension, benign Gastroesophageal reflux disease, unspecified whether esophagitis present Hiatal hernia Diaphragmatic hernia without mention of obstruction or gangrene Osteoporosis, unspecified osteoporosis type, unspecified pathological fracture presence Peripheral edema Edema 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 Situational anxiety Other anxiety states 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 spondylosis without myelopathy Bilateral carotid artery stenosis Occlusion and stenosis of carotid artery without mention of cerebral infarction 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 and other lower urinary tract symptoms (LUTS) Thyroid nodule Nontoxic uninodular goiter Pre-operative examination- Primary Preoperative examination, unspecified Bilateral carotid artery stenosis Occlusion and stenosis of carotid artery without mention of cerebral infarction Essential hypertension, benign Gastroesophageal reflux disease, unspecified whether esophagitis present 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 loss Iron deficiency anemia secondary to blood loss (chronic) Peripheral edema Edema 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 Situational anxiety Other anxiety states Thyroid nodule 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 spondylosis without myelopathy Osteoporosis, unspecified osteoporosis type, unspecified pathological fracture presence Cognitive impairment Unspecified persistent mental disorders due to conditions classified elsewhere 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 and other lower urinary tract symptoms (LUTS) Abnormal SPEP Other nonspecific findings on examination of blood Urinary tract infection without hematuria, site unspecified Pathological fracture, other site, initial encounter for fracture- Primary Abnormal radionuclide bone scan Nonspecific abnormal results of other specified function study [facility] Diagnosis Degenerative lumbar spinal stenosis- Primary Spinal stenosis, lumbar region, without neurogenic claudication Degenerative scoliosis Acute postoperative pain Other acute postoperative pain S/P lumbar spinal fusion Arthrodesis status Sepsis due to Escherichia coli with acute organ dysfunction and septic shock, unspecified type Essential hypertension, benign Urinary tract infection associated with indwelling urethral catheter, sequela Sepsis due to Gram-negative organism with septic shock (HCC) Septicemia due to gram-negative organism, unspecified Acute blood loss anemia Acute posthemorrhagic anemia Spontaneous pneumothorax Other pneumothorax Severe protein-calorie malnutrition (HCC) Other severe protein-calorie malnutrition Acute postoperative respiratory insufficiency Other pulmonary insufficiency, not elsewhere classified, following trauma and surgery Delirium Other alteration of consciousness Hemodynamic instability Other symptoms involving cardiovascular system Oropharyngeal dysphagia Dysphagia, oropharyngeal phase Thrombocytopenia Thrombocytopenia, unspecified Delirium Other alteration of consciousness Hypomagnesemia Disorders of magnesium metabolism Hypophosphataemia Sepsis due to Escherichia coli (E. coli) (HCC) Septicemia due to Escherichia coli (E. 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 Essential hypertension, benign 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 and other lower urinary tract symptoms (LUTS) 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 Compression fracture of L3 vertebra, sequela Osteoporosis, unspecified osteoporosis type, unspecified pathological fracture presence Chronic constipation Unspecified constipation Benign intracranial hypertension Situational anxiety Other anxiety states Thyroid nodule Nontoxic uninodular goiter Bilateral carotid artery stenosis Occlusion and stenosis of carotid artery without mention of cerebral infarction Pre-operative examination- Primary Preoperative examination, unspecified Nephrolithiasis Calculus of kidney Benign intracranial hypertension Episodic cluster headache, 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 Essential hypertension, benign Oropharyngeal dysphagia Dysphagia, oropharyngeal phase Gastroesophageal reflux disease, unspecified whether esophagitis present 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 and other lower urinary tract symptoms (LUTS) Urinary tract infection associated with indwelling urethral catheter, sequela Nontoxic single thyroid nodule Nontoxic uninodular goiter Acute blood loss anemia Acute posthemorrhagic anemia 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 Compression fracture of L3 vertebra, sequela Osteoporosis, unspecified osteoporosis type, unspecified pathological fracture presence Degenerative scoliosis Situational anxiety Other anxiety states Bilateral carotid artery stenosis Occlusion and stenosis of carotid artery without mention of cerebral infarction Pre-operative examination- Primary Preoperative examination, unspecified Essential hypertension, benign Gastroesophageal reflux disease, unspecified whether esophagitis present Hiatal hernia Diaphragmatic hernia without mention of obstruction or gangrene Osteoporosis, unspecified osteoporosis type, unspecified pathological fracture presence Peripheral edema Edema 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 Situational anxiety Other anxiety states 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 spondylosis without myelopathy Bilateral carotid artery stenosis Occlusion and stenosis of carotid artery without mention of cerebral infarction 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 and other lower urinary tract symptoms (LUTS) Thyroid nodule Nontoxic uninodular goiter Pre-operative examination- Primary Preoperative examination, unspecified Bilateral carotid artery stenosis Occlusion and stenosis of carotid artery without mention of cerebral infarction Essential hypertension, benign Gastroesophageal reflux disease, unspecified whether esophagitis present 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 loss Iron deficiency anemia secondary to blood loss (chronic) Peripheral edema Edema 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 Situational anxiety Other anxiety states Thyroid nodule 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 spondylosis without myelopathy Osteoporosis, unspecified osteoporosis type, unspecified pathological fracture presence Cognitive impairment Unspecified persistent mental disorders due to conditions classified elsewhere 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 and other lower urinary tract symptoms (LUTS) Abnormal SPEP Other nonspecific findings on examination of blood Urinary tract infection without hematuria, site unspecified Nightmares Other dysfunctions of sleep stages or arousal from sleep Dementia without behavioral disturbance (HCC) Dementia, unspecified, without behavioral disturbance Situational depression Adjustment disorder with depressed mood [facility] Diagnosis Degenerative lumbar spinal stenosis- Primary Spinal stenosis, lumbar region, without neurogenic claudication Degenerative scoliosis Acute postoperative pain Other acute postoperative pain S/P lumbar spinal fusion Arthrodesis status Sepsis due to Escherichia coli with acute organ dysfunction and septic shock, unspecified type Essential hypertension, benign Urinary tract infection associated with indwelling urethral catheter, sequela Sepsis due to Gram-negative organism with septic shock ([facility]) Septicemia due to gram-negative organism, unspecified Acute blood loss anemia Acute posthemorrhagic anemia Spontaneous pneumothorax Other pneumothorax Severe protein-calorie malnutrition (HCC) Other severe protein-calorie malnutrition Acute postoperative respiratory insufficiency Other pulmonary insufficiency, not elsewhere classified, following trauma and surgery Delirium Other alteration of consciousness Hemodynamic instability Other symptoms involving cardiovascular system Oropharyngeal dysphagia Dysphagia, oropharyngeal phase Thrombocytopenia Thrombocytopenia, unspecified Delirium Other alteration of consciousness Hypomagnesemia Disorders of magnesium metabolism Hypophosphataemia Sepsis due to Escherichia coli (E. coli) (HCC) Septicemia due to Escherichia coli (E. 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 Essential hypertension, benign 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 and other lower urinary tract symptoms (LUTS) 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 Compression fracture of L3 vertebra, sequela Osteoporosis, unspecified osteoporosis type, unspecified pathological fracture presence Chronic constipation Unspecified constipation Benign intracranial hypertension Situational anxiety Other anxiety states Thyroid nodule Nontoxic uninodular goiter Bilateral carotid artery stenosis Occlusion and stenosis of carotid artery without mention of cerebral infarction Pre-operative examination- Primary Preoperative examination, unspecified Nephrolithiasis Calculus of kidney Benign intracranial hypertension Episodic cluster headache, 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 Essential hypertension, benign Oropharyngeal dysphagia Dysphagia, oropharyngeal phase Gastroesophageal reflux disease, unspecified whether esophagitis present 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 and other lower urinary tract symptoms (LUTS) Urinary tract infection associated with indwelling urethral catheter, sequela Nontoxic single thyroid nodule Nontoxic uninodular goiter Acute blood loss anemia Acute posthemorrhagic anemia 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 Compression fracture of L3 vertebra, sequela Osteoporosis, unspecified osteoporosis type, unspecified pathological fracture presence Degenerative scoliosis Situational anxiety Other anxiety states Bilateral carotid artery stenosis Occlusion and stenosis of carotid artery without mention of cerebral infarction Pre-operative examination- Primary Preoperative examination, unspecified Essential hypertension, benign Gastroesophageal reflux disease, unspecified whether esophagitis present Hiatal hernia Diaphragmatic hernia without mention of obstruction or gangrene Osteoporosis, unspecified osteoporosis type, unspecified pathological fracture presence Peripheral edema Edema 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 Situational anxiety Other anxiety states 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 spondylosis without myelopathy Bilateral carotid artery stenosis Occlusion and stenosis of carotid artery without mention of cerebral infarction 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 and other lower urinary tract symptoms (LUTS) Thyroid nodule Nontoxic uninodular goiter Pre-operative examination- Primary Preoperative examination, unspecified Bilateral carotid artery stenosis Occlusion and stenosis of carotid artery without mention of cerebral infarction Essential hypertension, benign Gastroesophageal reflux disease, unspecified whether esophagitis present 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 loss Iron deficiency anemia secondary to blood loss (chronic) Peripheral edema Edema 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 Situational anxiety Other anxiety states Thyroid nodule 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 spondylosis without myelopathy Osteoporosis, unspecified osteoporosis type, unspecified pathological fracture presence Cognitive impairment Unspecified persistent mental disorders due to conditions classified elsewhere 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 and other lower urinary tract symptoms (LUTS) Abnormal SPEP Other nonspecific findings on examination of blood Urinary tract infection without hematuria, site unspecified Pathological fracture, other site, initial encounter for fracture Abnormal radionuclide bone scan Nonspecific abnormal results of other specified function study [facility] Diagnosis Degenerative lumbar spinal stenosis- Primary Spinal stenosis, lumbar region, without neurogenic claudication Degenerative scoliosis Acute postoperative pain Other acute postoperative pain S/P lumbar spinal fusion Arthrodesis status Sepsis due to Escherichia coli with acute organ dysfunction and septic shock, unspecified type Essential hypertension, benign Urinary tract infection associated with indwelling urethral catheter, sequela Sepsis due to Gram-negative organism with septic shock ([facility]) Septicemia due to gram-negative organism, unspecified Acute blood loss anemia Acute posthemorrhagic anemia Spontaneous pneumothorax Other pneumothorax Severe protein-calorie malnutrition (HCC) Other severe protein-calorie malnutrition Acute postoperative respiratory insufficiency Other pulmonary insufficiency, not elsewhere classified, following trauma and surgery Delirium Other alteration of consciousness Hemodynamic instability Other symptoms involving cardiovascular system Oropharyngeal dysphagia Dysphagia, oropharyngeal phase Thrombocytopenia Thrombocytopenia, unspecified Delirium Other alteration of consciousness Hypomagnesemia Disorders of magnesium metabolism Hypophosphataemia Sepsis due to Escherichia coli (E. coli) ([facility]) Septicemia due to Escherichia coli (E. 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 Essential hypertension, benign 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 and other lower urinary tract symptoms (LUTS) 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 Compression fracture of L3 vertebra, sequela Osteoporosis, unspecified osteoporosis type, unspecified pathological fracture presence Chronic constipation Unspecified constipation Benign intracranial hypertension Situational anxiety Other anxiety states Thyroid nodule Nontoxic uninodular goiter Bilateral carotid artery stenosis Occlusion and stenosis of carotid artery without mention of cerebral infarction Pre-operative examination- Primary Preoperative examination, unspecified Nephrolithiasis Calculus of kidney Benign intracranial hypertension Episodic cluster headache, 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 Essential hypertension, benign Oropharyngeal dysphagia Dysphagia, oropharyngeal phase Gastroesophageal reflux disease, unspecified whether esophagitis present 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 and other lower urinary tract symptoms (LUTS) Urinary tract infection associated with indwelling urethral catheter, sequela Nontoxic single thyroid nodule Nontoxic uninodular goiter Acute blood loss anemia Acute posthemorrhagic anemia 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 Compression fracture of L3 vertebra, sequela Osteoporosis, unspecified osteoporosis type, unspecified pathological fracture presence Degenerative scoliosis Situational anxiety Other anxiety states Bilateral carotid artery stenosis Occlusion and stenosis of carotid artery without mention of cerebral infarction Pre-operative examination- Primary Preoperative examination, unspecified Essential hypertension, benign Gastroesophageal reflux disease, unspecified whether esophagitis present Hiatal hernia Diaphragmatic hernia without mention of obstruction or gangrene Osteoporosis, unspecified osteoporosis type, unspecified pathological fracture presence Peripheral edema Edema Raynaud's phenomenon without gangrene Situational anxiety Other anxiety states 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 spondylosis without myelopathy Bilateral carotid artery stenosis Occlusion and stenosis of carotid artery without mention of cerebral infarction 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 and other lower urinary tract symptoms (LUTS) Thyroid nodule Nontoxic uninodular goiter Pre-operative examination- Primary Preoperative examination, unspecified Bilateral carotid artery stenosis Occlusion and stenosis of carotid artery without mention of cerebral infarction Essential hypertension, benign Gastroesophageal reflux disease, unspecified whether esophagitis present 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 loss Iron deficiency anemia secondary to blood loss (chronic) Peripheral edema Edema Raynaud's phenomenon without gangrene Situational anxiety Other anxiety states Thyroid nodule 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 spondylosis without myelopathy Osteoporosis, unspecified osteoporosis type, unspecified pathological fracture presence Cognitive impairment Unspecified persistent mental disorders due to conditions classified elsewhere 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 and other lower urinary tract symptoms (LUTS) Abnormal SPEP Other nonspecific findings on examination of blood Urinary tract infection without hematuria, site unspecified Abnormal urinalysis- Primary Other nonspecific finding on examination of urine [facility] Diagnosis Degenerative lumbar spinal stenosis- Primary Spinal stenosis, lumbar region, without neurogenic claudication Degenerative scoliosis Acute postoperative pain Other acute postoperative pain S/P lumbar spinal fusion Arthrodesis status Sepsis due to Escherichia coli with acute organ dysfunction and septic shock, unspecified type Essential hypertension, benign Urinary tract infection associated with indwelling urethral catheter, sequela Sepsis due to Gram-negative organism with septic shock (HCC) Septicemia due to gram-negative organism, unspecified Acute blood loss anemia Acute posthemorrhagic anemia Spontaneous pneumothorax Other pneumothorax Severe protein-calorie malnutrition (HCC) Other severe protein-calorie malnutrition Acute postoperative respiratory insufficiency Other pulmonary insufficiency, not elsewhere classified, following trauma and surgery Delirium Other alteration of consciousness Hemodynamic instability Other symptoms involving cardiovascular system Oropharyngeal dysphagia Dysphagia, oropharyngeal phase Thrombocytopenia Thrombocytopenia, unspecified Delirium Other alteration of consciousness Hypomagnesemia Disorders of magnesium metabolism Hypophosphataemia Sepsis due to Escherichia coli (E. coli) (HCC) Septicemia due to Escherichia coli (E. 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 Essential hypertension, benign 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 and other lower urinary tract symptoms (LUTS) Raynaud's phenomenon without gangrene Compression fracture of L3 vertebra, sequela Osteoporosis, unspecified osteoporosis type, unspecified pathological fracture presence Chronic constipation Unspecified constipation Benign intracranial hypertension Situational anxiety Other anxiety states Thyroid nodule Nontoxic uninodular goiter Bilateral carotid artery stenosis Occlusion and stenosis of carotid artery without mention of cerebral infarction Pre-operative examination- Primary Preoperative examination, unspecified Nephrolithiasis Calculus of kidney Benign intracranial hypertension Episodic cluster headache, 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 Essential hypertension, benign Oropharyngeal dysphagia Dysphagia, oropharyngeal phase Gastroesophageal reflux disease, unspecified whether esophagitis present 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 and other lower urinary tract symptoms (LUTS) Urinary tract infection associated with indwelling urethral catheter, sequela Nontoxic single thyroid nodule Nontoxic uninodular goiter Acute blood loss anemia Acute posthemorrhagic anemia Raynaud's phenomenon without gangrene Compression fracture of L3 vertebra, sequela Osteoporosis, unspecified osteoporosis type, unspecified pathological fracture presence Degenerative scoliosis Situational anxiety Other anxiety states Bilateral carotid artery stenosis Occlusion and stenosis of carotid artery without mention of cerebral infarction Pre-operative examination- Primary Preoperative examination, unspecified Essential hypertension, benign Gastroesophageal reflux disease, unspecified whether esophagitis present Hiatal hernia Diaphragmatic hernia without mention of obstruction or gangrene Osteoporosis, unspecified osteoporosis type, unspecified pathological fracture presence Peripheral edema Edema Raynaud's phenomenon without gangrene Situational anxiety Other anxiety states 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 spondylosis without myelopathy Bilateral carotid artery stenosis Occlusion and stenosis of carotid artery without mention of cerebral infarction 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 and other lower urinary tract symptoms (LUTS) Thyroid nodule Nontoxic uninodular goiter Pre-operative examination- Primary Preoperative examination, unspecified Bilateral carotid artery stenosis Occlusion and stenosis of carotid artery without mention of cerebral infarction Essential hypertension, benign Gastroesophageal reflux disease, unspecified whether esophagitis present 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 loss Iron deficiency anemia secondary to blood loss (chronic) Peripheral edema Edema Raynaud's phenomenon without gangrene Situational anxiety Other anxiety states Thyroid nodule 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 spondylosis without myelopathy Osteoporosis, unspecified osteoporosis type, unspecified pathological fracture presence Cognitive impairment Unspecified persistent mental disorders due to conditions classified elsewhere 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 and other lower urinary tract symptoms (LUTS) Abnormal SPEP Other nonspecific findings on examination of blood Urinary tract infection without hematuria, site unspecified Iron deficiency anemia, unspecified iron deficiency anemia type- Primary [facility] Diagnosis Degenerative lumbar spinal stenosis- Primary Spinal stenosis, lumbar region, without neurogenic claudication Degenerative scoliosis Acute postoperative pain Other acute postoperative pain S/P lumbar spinal fusion Arthrodesis status Sepsis due to Escherichia coli with acute organ dysfunction and septic shock, unspecified type Essential hypertension, benign Urinary tract infection associated with indwelling urethral catheter, sequela Sepsis due to Gram-negative organism with septic shock (HCC) Septicemia due to gram-negative organism, unspecified Acute blood loss anemia Acute posthemorrhagic anemia Spontaneous pneumothorax Other pneumothorax Severe protein-calorie malnutrition (HCC) Other severe protein-calorie malnutrition Acute postoperative respiratory insufficiency Other pulmonary insufficiency, not elsewhere classified, following trauma and surgery Delirium Other alteration of consciousness Hemodynamic instability Other symptoms involving cardiovascular system Oropharyngeal dysphagia Dysphagia, oropharyngeal phase Thrombocytopenia Thrombocytopenia, unspecified Delirium Other alteration of consciousness Hypomagnesemia Disorders of magnesium metabolism Hypophosphataemia Sepsis due to Escherichia coli (E. coli) (HCC) Septicemia due to Escherichia coli (E. 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 Essential hypertension, benign 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 and other lower urinary tract symptoms (LUTS) Raynaud's phenomenon without gangrene Compression fracture of L3 vertebra, sequela Osteoporosis, unspecified osteoporosis type, unspecified pathological fracture presence Chronic constipation Unspecified constipation Benign intracranial hypertension Situational anxiety Other anxiety states Thyroid nodule Nontoxic uninodular goiter Bilateral carotid artery stenosis Occlusion and stenosis of carotid artery without mention of cerebral infarction Pre-operative examination- Primary Preoperative examination, unspecified Nephrolithiasis Calculus of kidney Benign intracranial hypertension Episodic cluster headache, 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 Essential hypertension, benign Oropharyngeal dysphagia Dysphagia, oropharyngeal phase Gastroesophageal reflux disease, unspecified whether esophagitis present 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 and other lower urinary tract symptoms (LUTS) Urinary tract infection associated with indwelling urethral catheter, sequela Nontoxic single thyroid nodule Nontoxic uninodular goiter Acute blood loss anemia Acute posthemorrhagic anemia Raynaud's phenomenon without gangrene Compression fracture of L3 vertebra, sequela Osteoporosis, unspecified osteoporosis type, unspecified pathological fracture presence Degenerative scoliosis Situational anxiety Other anxiety states Bilateral carotid artery stenosis Occlusion and stenosis of carotid artery without mention of cerebral infarction Pre-operative examination- Primary Preoperative examination, unspecified Essential hypertension, benign Gastroesophageal reflux disease, unspecified whether esophagitis present Hiatal hernia Diaphragmatic hernia without mention of obstruction or gangrene Osteoporosis, unspecified osteoporosis type, unspecified pathological fracture presence Peripheral edema Edema Raynaud's phenomenon without gangrene Situational anxiety Other anxiety states 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 spondylosis without myelopathy Bilateral carotid artery stenosis Occlusion and stenosis of carotid artery without mention of cerebral infarction 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 and other lower urinary tract symptoms (LUTS) Thyroid nodule Nontoxic uninodular goiter Pre-operative examination- Primary Preoperative examination, unspecified Bilateral carotid artery stenosis Occlusion and stenosis of carotid artery without mention of cerebral infarction Essential hypertension, benign Gastroesophageal reflux disease, unspecified whether esophagitis present 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 loss Iron deficiency anemia secondary to blood loss (chronic) Peripheral edema Edema Raynaud's phenomenon without gangrene Situational anxiety Other anxiety states Thyroid nodule 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 spondylosis without myelopathy Osteoporosis, unspecified osteoporosis type, unspecified pathological fracture presence Cognitive impairment Unspecified persistent mental disorders due to conditions classified elsewhere 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 and other lower urinary tract symptoms (LUTS) Abnormal SPEP Other nonspecific findings on examination of blood Urinary tract infection without hematuria, site unspecified Pelvic floor dysfunction- Primary Pelvic muscle wasting documented in this encounter [facility]* Diagnosis Degenerative lumbar spinal stenosis- Primary Spinal stenosis, lumbar region, without neurogenic claudication Degenerative scoliosis Acute postoperative pain Other acute postoperative pain S/P lumbar spinal fusion Arthrodesis status Sepsis due to Escherichia coli with acute organ dysfunction and septic shock, unspecified type Essential hypertension, benign Urinary tract infection associated with indwelling urethral catheter, sequela Sepsis due to Gram-negative organism with septic shock ([facility]) Septicemia due to gram-negative organism, unspecified Acute blood loss anemia Acute posthemorrhagic anemia Spontaneous pneumothorax Other pneumothorax Severe protein-calorie malnutrition (HCC) Other severe protein-calorie malnutrition Acute postoperative respiratory insufficiency Other pulmonary insufficiency, not elsewhere classified, following trauma and surgery Delirium Other alteration of consciousness Hemodynamic instability Other symptoms involving cardiovascular system Oropharyngeal dysphagia Dysphagia, oropharyngeal phase Thrombocytopenia Thrombocytopenia, unspecified Delirium Other alteration of consciousness Hypomagnesemia Disorders of magnesium metabolism Hypophosphataemia Sepsis due to Escherichia coli (E. coli) ([facility]) Septicemia due to Escherichia coli (E. 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 Essential hypertension, benign 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 and other lower urinary tract symptoms (LUTS) Raynaud's phenomenon without gangrene Compression fracture of L3 vertebra, sequela Osteoporosis, unspecified osteoporosis type, unspecified pathological fracture presence Chronic constipation Unspecified constipation Benign intracranial hypertension Situational anxiety Other anxiety states Thyroid nodule Nontoxic uninodular goiter Bilateral carotid artery stenosis Occlusion and stenosis of carotid artery without mention of cerebral infarction Pre-operative examination- Primary Preoperative examination, unspecified Nephrolithiasis Calculus of kidney Benign intracranial hypertension Episodic cluster headache, 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 Essential hypertension, benign Oropharyngeal dysphagia Dysphagia, oropharyngeal phase Gastroesophageal reflux disease, unspecified whether esophagitis present 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 and other lower urinary tract symptoms (LUTS) Urinary tract infection associated with indwelling urethral catheter, sequela Nontoxic single thyroid nodule Nontoxic uninodular goiter Acute blood loss anemia Acute posthemorrhagic anemia Raynaud's phenomenon without gangrene Compression fracture of L3 vertebra, sequela Osteoporosis, unspecified osteoporosis type, unspecified pathological fracture presence Degenerative scoliosis Situational anxiety Other anxiety states Bilateral carotid artery stenosis Occlusion and stenosis of carotid artery without mention of cerebral infarction Pre-operative examination- Primary Preoperative examination, unspecified Essential hypertension, benign Gastroesophageal reflux disease, unspecified whether esophagitis present Hiatal hernia Diaphragmatic hernia without mention of obstruction or gangrene Osteoporosis, unspecified osteoporosis type, unspecified pathological fracture presence Peripheral edema Edema Raynaud's phenomenon without gangrene Situational anxiety Other anxiety states 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 spondylosis without myelopathy Bilateral carotid artery stenosis Occlusion and stenosis of carotid artery without mention of cerebral infarction 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 and other lower urinary tract symptoms (LUTS) Thyroid nodule Nontoxic uninodular goiter Pre-operative examination- Primary Preoperative examination, unspecified Bilateral carotid artery stenosis Occlusion and stenosis of carotid artery without mention of cerebral infarction Essential hypertension, benign Gastroesophageal reflux disease, unspecified whether esophagitis present 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 loss Iron deficiency anemia secondary to blood loss (chronic) Peripheral edema Edema Raynaud's phenomenon without gangrene Situational anxiety Other anxiety states Thyroid nodule 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 spondylosis without myelopathy Osteoporosis, unspecified osteoporosis type, unspecified pathological fracture presence Cognitive impairment Unspecified persistent mental disorders due to conditions classified elsewhere 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 and other lower urinary tract symptoms (LUTS) Abnormal SPEP Other nonspecific findings on examination of blood Urinary tract infection without hematuria, site unspecified Pelvic floor dysfunction- Primary Pelvic muscle wasting [facility] Diagnosis Degenerative lumbar spinal stenosis- Primary Spinal stenosis, lumbar region, without neurogenic claudication Degenerative scoliosis Acute postoperative pain Other acute postoperative pain S/P lumbar spinal fusion Arthrodesis status Sepsis due to Escherichia coli with acute organ dysfunction and septic shock, unspecified type Essential hypertension, benign Urinary tract infection associated with indwelling urethral catheter, sequela Sepsis due to Gram-negative organism with septic shock (HCC) Septicemia due to gram-negative organism, unspecified Acute blood loss anemia Acute posthemorrhagic anemia Spontaneous pneumothorax Other pneumothorax Severe protein-calorie malnutrition (HCC) Other severe protein-calorie malnutrition Acute postoperative respiratory insufficiency Other pulmonary insufficiency, not elsewhere classified, following trauma and surgery Delirium Other alteration of consciousness Hemodynamic instability Other symptoms involving cardiovascular system Oropharyngeal dysphagia Dysphagia, oropharyngeal phase Thrombocytopenia Thrombocytopenia, unspecified Delirium Other alteration of consciousness Hypomagnesemia Disorders of magnesium metabolism Hypophosphataemia Sepsis due to Escherichia coli (E. coli) ([facility]) Septicemia due to Escherichia coli (E. coli) Sepsis due to Gram-negative organism with septic shock ([facility]) Septicemia due to gram-negative organism, unspecified Acute postoperative respiratory insufficiency Other pulmonary insufficiency, not elsewhere classified, following trauma and surgery BRITTANY (acute kidney injury) Acute kidney failure, unspecified Pre-operative examination- Primary Preoperative examination, unspecified Degenerative scoliosis Episodic cluster headache, 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 Essential hypertension, benign 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 and other lower urinary tract symptoms (LUTS) Raynaud's phenomenon without gangrene Compression fracture of L3 vertebra, sequela Osteoporosis, unspecified osteoporosis type, unspecified pathological fracture presence Chronic constipation Unspecified constipation Benign intracranial hypertension Situational anxiety Other anxiety states Thyroid nodule Nontoxic uninodular goiter Bilateral carotid artery stenosis Occlusion and stenosis of carotid artery without mention of cerebral infarction Pre-operative examination- Primary Preoperative examination, unspecified Nephrolithiasis Calculus of kidney Benign intracranial hypertension Episodic cluster headache, 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 Essential hypertension, benign Oropharyngeal dysphagia Dysphagia, oropharyngeal phase Gastroesophageal reflux disease, unspecified whether esophagitis present 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 and other lower urinary tract symptoms (LUTS) Urinary tract infection associated with indwelling urethral catheter, sequela Nontoxic single thyroid nodule Nontoxic uninodular goiter Acute blood loss anemia Acute posthemorrhagic anemia Raynaud's phenomenon without gangrene Compression fracture of L3 vertebra, sequela Osteoporosis, unspecified osteoporosis type, unspecified pathological fracture presence Degenerative scoliosis Situational anxiety Other anxiety states Bilateral carotid artery stenosis Occlusion and stenosis of carotid artery without mention of cerebral infarction Pre-operative examination- Primary Preoperative examination, unspecified Essential hypertension, benign Gastroesophageal reflux disease, unspecified whether esophagitis present Hiatal hernia Diaphragmatic hernia without mention of obstruction or gangrene Osteoporosis, unspecified osteoporosis type, unspecified pathological fracture presence Peripheral edema Edema Raynaud's phenomenon without gangrene Situational anxiety Other anxiety states 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 spondylosis without myelopathy Bilateral carotid artery stenosis Occlusion and stenosis of carotid artery without mention of cerebral infarction 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 and other lower urinary tract symptoms (LUTS) Thyroid nodule Nontoxic uninodular goiter Pre-operative examination- Primary Preoperative examination, unspecified Bilateral carotid artery stenosis Occlusion and stenosis of carotid artery without mention of cerebral infarction Essential hypertension, benign Gastroesophageal reflux disease, unspecified whether esophagitis present 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 loss Iron deficiency anemia secondary to blood loss (chronic) Peripheral edema Edema Raynaud's phenomenon without gangrene Situational anxiety Other anxiety states Thyroid nodule 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 spondylosis without myelopathy Osteoporosis, unspecified osteoporosis type, unspecified pathological fracture presence Cognitive impairment Unspecified persistent mental disorders due to conditions classified elsewhere 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 and other lower urinary tract symptoms (LUTS) Abnormal SPEP Other nonspecific findings on examination of blood Urinary tract infection without hematuria, site unspecified Screening for genitourinary condition Screening for other and unspecified genitourinary condition Nephrolithiasis Calculus of kidney Complicated UTI (urinary tract infection) Urinary tract infection, site not specified [facility] Diagnosis Degenerative lumbar spinal stenosis- Primary Spinal stenosis, lumbar region, without neurogenic claudication Degenerative scoliosis Acute postoperative pain Other acute postoperative pain S/P lumbar spinal fusion Arthrodesis status Sepsis due to Escherichia coli with acute organ dysfunction and septic shock, unspecified type Essential hypertension, benign Urinary tract infection associated with indwelling urethral catheter, sequela Sepsis due to Gram-negative organism with septic shock (HCC) Septicemia due to gram-negative organism, unspecified Acute blood loss anemia Acute posthemorrhagic anemia Spontaneous pneumothorax Other pneumothorax Severe protein-calorie malnutrition (HCC) Other severe protein-calorie malnutrition Acute postoperative respiratory insufficiency Other pulmonary insufficiency, not elsewhere classified, following trauma and surgery Delirium Other alteration of consciousness Hemodynamic instability Other symptoms involving cardiovascular system Oropharyngeal dysphagia Dysphagia, oropharyngeal phase Thrombocytopenia Thrombocytopenia, unspecified Delirium Other alteration of consciousness Hypomagnesemia Disorders of magnesium metabolism Hypophosphataemia Sepsis due to Escherichia coli (E. coli) (HCC) Septicemia due to Escherichia coli (E. coli) Sepsis due to Gram-negative organism with septic shock (HCC) Septicemia due to gram-negative organism, unspecified Acute postoperative respiratory insufficiency Other pulmonary insufficiency, not elsewhere classified, following trauma and surgery BRITTANY (acute kidney injury) Acute kidney failure, unspecified Pre-operative examination- Primary Preoperative examination, unspecified Degenerative scoliosis Episodic cluster headache, 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 Essential hypertension, benign 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 and other lower urinary tract symptoms (LUTS) Raynaud's phenomenon without gangrene Compression fracture of L3 vertebra, sequela Osteoporosis, unspecified osteoporosis type, unspecified pathological fracture presence Chronic constipation Unspecified constipation Benign intracranial hypertension Situational anxiety Other anxiety states Thyroid nodule Nontoxic uninodular goiter Bilateral carotid artery stenosis Occlusion and stenosis of carotid artery without mention of cerebral infarction Pre-operative examination- Primary Preoperative examination, unspecified Nephrolithiasis Calculus of kidney Benign intracranial hypertension Episodic cluster headache, 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 Essential hypertension, benign Oropharyngeal dysphagia Dysphagia, oropharyngeal phase Gastroesophageal reflux disease, unspecified whether esophagitis present 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 and other lower urinary tract symptoms (LUTS) Urinary tract infection associated with indwelling urethral catheter, sequela Nontoxic single thyroid nodule Nontoxic uninodular goiter Acute blood loss anemia Acute posthemorrhagic anemia Raynaud's phenomenon without gangrene Compression fracture of L3 vertebra, sequela Osteoporosis, unspecified osteoporosis type, unspecified pathological fracture presence Degenerative scoliosis Situational anxiety Other anxiety states Bilateral carotid artery stenosis Occlusion and stenosis of carotid artery without mention of cerebral infarction Pre-operative examination- Primary Preoperative examination, unspecified Essential hypertension, benign Gastroesophageal reflux disease, unspecified whether esophagitis present Hiatal hernia Diaphragmatic hernia without mention of obstruction or gangrene Osteoporosis, unspecified osteoporosis type, unspecified pathological fracture presence Peripheral edema Edema Raynaud's phenomenon without gangrene Situational anxiety Other anxiety states 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 spondylosis without myelopathy Bilateral carotid artery stenosis Occlusion and stenosis of carotid artery without mention of cerebral infarction 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 and other lower urinary tract symptoms (LUTS) Thyroid nodule Nontoxic uninodular goiter Pre-operative examination- Primary Preoperative examination, unspecified Bilateral carotid artery stenosis Occlusion and stenosis of carotid artery without mention of cerebral infarction Essential hypertension, benign Gastroesophageal reflux disease, unspecified whether esophagitis present 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 loss Iron deficiency anemia secondary to blood loss (chronic) Peripheral edema Edema Raynaud's phenomenon without gangrene Situational anxiety Other anxiety states Thyroid nodule 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 spondylosis without myelopathy Osteoporosis, unspecified osteoporosis type, unspecified pathological fracture presence Cognitive impairment Unspecified persistent mental disorders due to conditions classified elsewhere 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 and other lower urinary tract symptoms (LUTS) Abnormal SPEP Other nonspecific findings on examination of blood Urinary tract infection without hematuria, site unspecified Screening for genitourinary condition Screening for other and unspecified genitourinary condition Nephrolithiasis Calculus of kidney Complicated UTI (urinary tract infection) Urinary tract infection, site not specified [facility] Diagnosis Degenerative lumbar spinal stenosis- Primary Spinal stenosis, lumbar region, without neurogenic claudication Degenerative scoliosis Acute postoperative pain Other acute postoperative pain S/P lumbar spinal fusion Arthrodesis status Sepsis due to Escherichia coli with acute organ dysfunction and septic shock, unspecified type Essential hypertension, benign Urinary tract infection associated with indwelling urethral catheter, sequela Sepsis due to Gram-negative organism with septic shock (HCC) Septicemia due to gram-negative organism, unspecified Acute blood loss anemia Acute posthemorrhagic anemia Spontaneous pneumothorax Other pneumothorax Severe protein-calorie malnutrition (HCC) Other severe protein-calorie malnutrition Acute postoperative respiratory insufficiency Other pulmonary insufficiency, not elsewhere classified, following trauma and surgery Delirium Other alteration of consciousness Hemodynamic instability Other symptoms involving cardiovascular system Oropharyngeal dysphagia Dysphagia, oropharyngeal phase Thrombocytopenia Thrombocytopenia, unspecified Delirium Other alteration of consciousness Hypomagnesemia Disorders of magnesium metabolism Hypophosphataemia Sepsis due to Escherichia coli (E. coli) (HCC) Septicemia due to Escherichia coli (E. coli) Sepsis due to Gram-negative organism with septic shock (HCC) Septicemia due to gram-negative organism, unspecified Acute postoperative respiratory insufficiency Other pulmonary insufficiency, not elsewhere classified, following trauma and surgery BRITTANY (acute kidney injury) Acute kidney failure, unspecified Pre-operative examination- Primary Preoperative examination, unspecified Degenerative scoliosis Episodic cluster headache, 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 Essential hypertension, benign 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 and other lower urinary tract symptoms (LUTS) Raynaud's phenomenon without gangrene Compression fracture of L3 vertebra, sequela Osteoporosis, unspecified osteoporosis type, unspecified pathological fracture presence Chronic constipation Unspecified constipation Benign intracranial hypertension Situational anxiety Other anxiety states Thyroid nodule Nontoxic uninodular goiter Bilateral carotid artery stenosis Occlusion and stenosis of carotid artery without mention of cerebral infarction Pre-operative examination- Primary Preoperative examination, unspecified Nephrolithiasis Calculus of kidney Benign intracranial hypertension Episodic cluster headache, 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 Essential hypertension, benign Oropharyngeal dysphagia Dysphagia, oropharyngeal phase Gastroesophageal reflux disease, unspecified whether esophagitis present 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 and other lower urinary tract symptoms (LUTS) Urinary tract infection associated with indwelling urethral catheter, sequela Nontoxic single thyroid nodule Nontoxic uninodular goiter Acute blood loss anemia Acute posthemorrhagic anemia Raynaud's phenomenon without gangrene Compression fracture of L3 vertebra, sequela Osteoporosis, unspecified osteoporosis type, unspecified pathological fracture presence Degenerative scoliosis Situational anxiety Other anxiety states Bilateral carotid artery stenosis Occlusion and stenosis of carotid artery without mention of cerebral infarction Pre-operative examination- Primary Preoperative examination, unspecified Essential hypertension, benign Gastroesophageal reflux disease, unspecified whether esophagitis present Hiatal hernia Diaphragmatic hernia without mention of obstruction or gangrene Osteoporosis, unspecified osteoporosis type, unspecified pathological fracture presence Peripheral edema Edema Raynaud's phenomenon without gangrene Situational anxiety Other anxiety states 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 spondylosis without myelopathy Bilateral carotid artery stenosis Occlusion and stenosis of carotid artery without mention of cerebral infarction 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 and other lower urinary tract symptoms (LUTS) Thyroid nodule Nontoxic uninodular goiter Pre-operative examination- Primary Preoperative examination, unspecified Bilateral carotid artery stenosis Occlusion and stenosis of carotid artery without mention of cerebral infarction Essential hypertension, benign Gastroesophageal reflux disease, unspecified whether esophagitis present 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 loss Iron deficiency anemia secondary to blood loss (chronic) Peripheral edema Edema Raynaud's phenomenon without gangrene Situational anxiety Other anxiety states Thyroid nodule 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 spondylosis without myelopathy Osteoporosis, unspecified osteoporosis type, unspecified pathological fracture presence Cognitive impairment Unspecified persistent mental disorders due to conditions classified elsewhere 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 and other lower urinary tract symptoms (LUTS) Abnormal SPEP Other nonspecific findings on examination of blood Urinary tract infection without hematuria, site unspecified Recurrent UTI Urinary tract infection, site not specified [facility] Diagnosis Degenerative lumbar spinal stenosis- Primary Spinal stenosis, lumbar region, without neurogenic claudication Degenerative scoliosis Acute postoperative pain Other acute postoperative pain S/P lumbar spinal fusion Arthrodesis status Sepsis due to Escherichia coli with acute organ dysfunction and septic shock, unspecified type Essential hypertension, benign Urinary tract infection associated with indwelling urethral catheter, sequela Sepsis due to Gram-negative organism with septic shock (HCC) Septicemia due to gram-negative organism, unspecified Acute blood loss anemia Acute posthemorrhagic anemia Spontaneous pneumothorax Other pneumothorax Severe protein-calorie malnutrition (HCC) Other severe protein-calorie malnutrition Acute postoperative respiratory insufficiency Other pulmonary insufficiency, not elsewhere classified, following trauma and surgery Delirium Other alteration of consciousness Hemodynamic instability Other symptoms involving cardiovascular system Oropharyngeal dysphagia Dysphagia, oropharyngeal phase Thrombocytopenia Thrombocytopenia, unspecified Delirium Other alteration of consciousness Hypomagnesemia Disorders of magnesium metabolism Hypophosphataemia Sepsis due to Escherichia coli (E. coli) (HCC) Septicemia due to Escherichia coli (E. coli) Sepsis due to Gram-negative organism with septic shock ([facility]) Septicemia due to gram-negative organism, unspecified Acute postoperative respiratory insufficiency Other pulmonary insufficiency, not elsewhere classified, following trauma and surgery BRITTANY (acute kidney injury) Acute kidney failure, unspecified Pre-operative examination- Primary Preoperative examination, unspecified Degenerative scoliosis Episodic cluster headache, 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 Essential hypertension, benign 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 and other lower urinary tract symptoms (LUTS) Raynaud's phenomenon without gangrene Compression fracture of L3 vertebra, sequela Osteoporosis, unspecified osteoporosis type, unspecified pathological fracture presence Chronic constipation Unspecified constipation Benign intracranial hypertension Situational anxiety Other anxiety states Thyroid nodule Nontoxic uninodular goiter Bilateral carotid artery stenosis Occlusion and stenosis of carotid artery without mention of cerebral infarction Pre-operative examination- Primary Preoperative examination, unspecified Nephrolithiasis Calculus of kidney Benign intracranial hypertension Episodic cluster headache, 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 Essential hypertension, benign Oropharyngeal dysphagia Dysphagia, oropharyngeal phase Gastroesophageal reflux disease, unspecified whether esophagitis present 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 and other lower urinary tract symptoms (LUTS) Urinary tract infection associated with indwelling urethral catheter, sequela Nontoxic single thyroid nodule Nontoxic uninodular goiter Acute blood loss anemia Acute posthemorrhagic anemia Raynaud's phenomenon without gangrene Compression fracture of L3 vertebra, sequela Osteoporosis, unspecified osteoporosis type, unspecified pathological fracture presence Degenerative scoliosis Situational anxiety Other anxiety states Bilateral carotid artery stenosis Occlusion and stenosis of carotid artery without mention of cerebral infarction Pre-operative examination- Primary Preoperative examination, unspecified Essential hypertension, benign Gastroesophageal reflux disease, unspecified whether esophagitis present Hiatal hernia Diaphragmatic hernia without mention of obstruction or gangrene Osteoporosis, unspecified osteoporosis type, unspecified pathological fracture presence Peripheral edema Edema Raynaud's phenomenon without gangrene Situational anxiety Other anxiety states 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 spondylosis without myelopathy Bilateral carotid artery stenosis Occlusion and stenosis of carotid artery without mention of cerebral infarction 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 and other lower urinary tract symptoms (LUTS) Thyroid nodule Nontoxic uninodular goiter Pre-operative examination- Primary Preoperative examination, unspecified Bilateral carotid artery stenosis Occlusion and stenosis of carotid artery without mention of cerebral infarction Essential hypertension, benign Gastroesophageal reflux disease, unspecified whether esophagitis present 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 loss Iron deficiency anemia secondary to blood loss (chronic) Peripheral edema Edema Raynaud's phenomenon without gangrene Situational anxiety Other anxiety states Thyroid nodule 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 spondylosis without myelopathy Osteoporosis, unspecified osteoporosis type, unspecified pathological fracture presence Cognitive impairment Unspecified persistent mental disorders due to conditions classified elsewhere 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 and other lower urinary tract symptoms (LUTS) Abnormal SPEP Other nonspecific findings on examination of blood Urinary tract infection without hematuria, site unspecified Medicare annual wellness visit, subsequent- Primary Routine general medical examination at a health care facility Essential hypertension, benign Elevated blood sugar Other abnormal glucose Bilateral carotid artery stenosis Occlusion and stenosis of carotid artery without mention of cerebral infarction Episodic cluster headache, 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 Gastroesophageal reflux disease, unspecified whether esophagitis present Iron deficiency anemia, unspecified iron deficiency anemia type Peripheral edema Edema Situational anxiety Other anxiety states Situational depression Adjustment disorder with depressed mood Thyroid nodule Nontoxic uninodular goiter Abnormal SPEP Other nonspecific findings on examination of blood Dementia without behavioral disturbance (HCC) Dementia, unspecified, without behavioral disturbance Essential tremor Essential and other specified forms of tremor Ilioinguinal neuralgia of left side Neuropathy - (NOS) Chronic constipation Unspecified constipation Advance directive discussed with patient Other specified counseling Need for vaccination Need for prophylactic vaccination and inoculation against unspecified single disease [facility] Diagnosis Degenerative lumbar spinal stenosis- Primary Spinal stenosis, lumbar region, without neurogenic claudication Degenerative scoliosis Acute postoperative pain Other acute postoperative pain S/P lumbar spinal fusion Arthrodesis status Sepsis due to Escherichia coli with acute organ dysfunction and septic shock, unspecified type Essential hypertension, benign Urinary tract infection associated with indwelling urethral catheter, sequela Sepsis due to Gram-negative organism with septic shock (HCC) Septicemia due to gram-negative organism, unspecified Acute blood loss anemia Acute posthemorrhagic anemia Spontaneous pneumothorax Other pneumothorax Severe protein-calorie malnutrition (HCC) Other severe protein-calorie malnutrition Acute postoperative respiratory insufficiency Other pulmonary insufficiency, not elsewhere classified, following trauma and surgery Delirium Other alteration of consciousness Hemodynamic instability Other symptoms involving cardiovascular system Oropharyngeal dysphagia Dysphagia, oropharyngeal phase Thrombocytopenia Thrombocytopenia, unspecified Delirium Other alteration of consciousness Hypomagnesemia Disorders of magnesium metabolism Hypophosphataemia Sepsis due to Escherichia coli (E. coli) (HCC) Septicemia due to Escherichia coli (E. coli) Sepsis due to Gram-negative organism with septic shock (HCC) Septicemia due to gram-negative organism, unspecified Acute postoperative respiratory insufficiency Other pulmonary insufficiency, not elsewhere classified, following trauma and surgery BRITTANY (acute kidney injury) Acute kidney failure, unspecified Pre-operative examination- Primary Preoperative examination, unspecified Degenerative scoliosis Episodic cluster headache, 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 Essential hypertension, benign 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 and other lower urinary tract symptoms (LUTS) Raynaud's phenomenon without gangrene Compression fracture of L3 vertebra, sequela Osteoporosis, unspecified osteoporosis type, unspecified pathological fracture presence Chronic constipation Unspecified constipation Benign intracranial hypertension Situational anxiety Other anxiety states Thyroid nodule Nontoxic uninodular goiter Bilateral carotid artery stenosis Occlusion and stenosis of carotid artery without mention of cerebral infarction Pre-operative examination- Primary Preoperative examination, unspecified Nephrolithiasis Calculus of kidney Benign intracranial hypertension Episodic cluster headache, 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 Essential hypertension, benign Oropharyngeal dysphagia Dysphagia, oropharyngeal phase Gastroesophageal reflux disease, unspecified whether esophagitis present 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 and other lower urinary tract symptoms (LUTS) Urinary tract infection associated with indwelling urethral catheter, sequela Nontoxic single thyroid nodule Nontoxic uninodular goiter Acute blood loss anemia Acute posthemorrhagic anemia Raynaud's phenomenon without gangrene Compression fracture of L3 vertebra, sequela Osteoporosis, unspecified osteoporosis type, unspecified pathological fracture presence Degenerative scoliosis Situational anxiety Other anxiety states Bilateral carotid artery stenosis Occlusion and stenosis of carotid artery without mention of cerebral infarction Pre-operative examination- Primary Preoperative examination, unspecified Essential hypertension, benign Gastroesophageal reflux disease, unspecified whether esophagitis present Hiatal hernia Diaphragmatic hernia without mention of obstruction or gangrene Osteoporosis, unspecified osteoporosis type, unspecified pathological fracture presence Peripheral edema Edema Raynaud's phenomenon without gangrene Situational anxiety Other anxiety states 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 spondylosis without myelopathy Bilateral carotid artery stenosis Occlusion and stenosis of carotid artery without mention of cerebral infarction 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 and other lower urinary tract symptoms (LUTS) Thyroid nodule Nontoxic uninodular goiter Pre-operative examination- Primary Preoperative examination, unspecified Bilateral carotid artery stenosis Occlusion and stenosis of carotid artery without mention of cerebral infarction Essential hypertension, benign Gastroesophageal reflux disease, unspecified whether esophagitis present 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 loss Iron deficiency anemia secondary to blood loss (chronic) Peripheral edema Edema Raynaud's phenomenon without gangrene Situational anxiety Other anxiety states Thyroid nodule 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 spondylosis without myelopathy Osteoporosis, unspecified osteoporosis type, unspecified pathological fracture presence Cognitive impairment Unspecified persistent mental disorders due to conditions classified elsewhere 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 and other lower urinary tract symptoms (LUTS) Abnormal SPEP Other nonspecific findings on examination of blood Urinary tract infection without hematuria, site unspecified Nephrolithiasis- Primary Calculus of kidney Screening for genitourinary condition Screening for other and unspecified genitourinary condition [facility] Diagnosis Degenerative lumbar spinal stenosis- Primary Spinal stenosis, lumbar region, without neurogenic claudication Degenerative scoliosis Acute postoperative pain Other acute postoperative pain S/P lumbar spinal fusion Arthrodesis status Sepsis due to Escherichia coli with acute organ dysfunction and septic shock, unspecified type Essential hypertension, benign Urinary tract infection associated with indwelling urethral catheter, sequela Sepsis due to Gram-negative organism with septic shock (HCC) Septicemia due to gram-negative organism, unspecified Acute blood loss anemia Acute posthemorrhagic anemia Spontaneous pneumothorax Other pneumothorax Severe protein-calorie malnutrition (HCC) Other severe protein-calorie malnutrition Acute postoperative respiratory insufficiency Other pulmonary insufficiency, not elsewhere classified, following trauma and surgery Delirium Other alteration of consciousness Hemodynamic instability Other symptoms involving cardiovascular system Oropharyngeal dysphagia Dysphagia, oropharyngeal phase Thrombocytopenia Thrombocytopenia, unspecified Delirium Other alteration of consciousness Hypomagnesemia Disorders of magnesium metabolism Hypophosphataemia Sepsis due to Escherichia coli (E. coli) ([facility]) Septicemia due to Escherichia coli (E. coli) Sepsis due to Gram-negative organism with septic shock ([facility]) Septicemia due to gram-negative organism, unspecified Acute postoperative respiratory insufficiency Other pulmonary insufficiency, not elsewhere classified, following trauma and surgery BRITTANY (acute kidney injury) Acute kidney failure, unspecified Pre-operative examination- Primary Preoperative examination, unspecified Degenerative scoliosis Episodic cluster headache, 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 Essential hypertension, benign 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 and other lower urinary tract symptoms (LUTS) Raynaud's phenomenon without gangrene Compression fracture of L3 vertebra, sequela Osteoporosis, unspecified osteoporosis type, unspecified pathological fracture presence Chronic constipation Unspecified constipation Benign intracranial hypertension Situational anxiety Other anxiety states Thyroid nodule Nontoxic uninodular goiter Bilateral carotid artery stenosis Occlusion and stenosis of carotid artery without mention of cerebral infarction Pre-operative examination- Primary Preoperative examination, unspecified Nephrolithiasis Calculus of kidney Benign intracranial hypertension Episodic cluster headache, 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 Essential hypertension, benign Oropharyngeal dysphagia Dysphagia, oropharyngeal phase Gastroesophageal reflux disease, unspecified whether esophagitis present 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 and other lower urinary tract symptoms (LUTS) Urinary tract infection associated with indwelling urethral catheter, sequela Nontoxic single thyroid nodule Nontoxic uninodular goiter Acute blood loss anemia Acute posthemorrhagic anemia Raynaud's phenomenon without gangrene Compression fracture of L3 vertebra, sequela Osteoporosis, unspecified osteoporosis type, unspecified pathological fracture presence Degenerative scoliosis Situational anxiety Other anxiety states Bilateral carotid artery stenosis Occlusion and stenosis of carotid artery without mention of cerebral infarction Pre-operative examination- Primary Preoperative examination, unspecified Essential hypertension, benign Gastroesophageal reflux disease, unspecified whether esophagitis present Hiatal hernia Diaphragmatic hernia without mention of obstruction or gangrene Osteoporosis, unspecified osteoporosis type, unspecified pathological fracture presence Peripheral edema Edema Raynaud's phenomenon without gangrene Situational anxiety Other anxiety states 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 spondylosis without myelopathy Bilateral carotid artery stenosis Occlusion and stenosis of carotid artery without mention of cerebral infarction 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 and other lower urinary tract symptoms (LUTS) Thyroid nodule Nontoxic uninodular goiter Pre-operative examination- Primary Preoperative examination, unspecified Bilateral carotid artery stenosis Occlusion and stenosis of carotid artery without mention of cerebral infarction Essential hypertension, benign Gastroesophageal reflux disease, unspecified whether esophagitis present 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 loss Iron deficiency anemia secondary to blood loss (chronic) Peripheral edema Edema Raynaud's phenomenon without gangrene Situational anxiety Other anxiety states Thyroid nodule 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 spondylosis without myelopathy Osteoporosis, unspecified osteoporosis type, unspecified pathological fracture presence Cognitive impairment Unspecified persistent mental disorders due to conditions classified elsewhere 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 and other lower urinary tract symptoms (LUTS) Abnormal SPEP Other nonspecific findings on examination of blood Urinary tract infection without hematuria, site unspecified Thyroid nodule Nontoxic uninodular goiter [facility] Diagnosis Onset Date Resolution Status Admit Date Acute UTI acute January 08 6:51pm Weakness of both lower extremities acute January 08, 2025 6:51pm [facility] Work Phone: Evaluation note* Diagnosis Degenerative lumbar spinal stenosis- Primary Spinal stenosis, lumbar region, without neurogenic claudication Degenerative scoliosis Acute postoperative pain Other acute postoperative pain S/P lumbar spinal fusion Arthrodesis status Sepsis due to Escherichia coli with acute organ dysfunction and septic shock, unspecified type Essential hypertension, benign Urinary tract infection associated with indwelling urethral catheter, sequela Sepsis due to Gram-negative organism with septic shock (HCC) Septicemia due to gram-negative organism, unspecified Acute blood loss anemia Acute posthemorrhagic anemia Spontaneous pneumothorax Other pneumothorax Severe protein-calorie malnutrition (HCC) Other severe protein-calorie malnutrition Acute postoperative respiratory insufficiency Other pulmonary insufficiency, not elsewhere classified, following trauma and surgery Delirium Other alteration of consciousness Hemodynamic instability Other symptoms involving cardiovascular system Oropharyngeal dysphagia Dysphagia, oropharyngeal phase Thrombocytopenia Thrombocytopenia, unspecified Delirium Other alteration of consciousness Hypomagnesemia Disorders of magnesium metabolism Hypophosphataemia Sepsis due to Escherichia coli (E. coli) (HCC) Septicemia due to Escherichia coli (E. coli) Sepsis due to Gram-negative organism with septic shock (HCC) Septicemia due to gram-negative organism, unspecified Acute postoperative respiratory insufficiency Other pulmonary insufficiency, not elsewhere classified, following trauma and surgery BRITTANY (acute kidney injury) Acute kidney failure, unspecified Pre-operative examination- Primary Preoperative examination, unspecified Degenerative scoliosis Episodic cluster headache, 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 Essential hypertension, benign 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 and other lower urinary tract symptoms (LUTS) Raynaud's phenomenon without gangrene Compression fracture of L3 vertebra, sequela Osteoporosis, unspecified osteoporosis type, unspecified pathological fracture presence Chronic constipation Unspecified constipation Benign intracranial hypertension Situational anxiety Other anxiety states Thyroid nodule Nontoxic uninodular goiter Bilateral carotid artery stenosis Occlusion and stenosis of carotid artery without mention of cerebral infarction Pre-operative examination- Primary Preoperative examination, unspecified Nephrolithiasis Calculus of kidney Benign intracranial hypertension Episodic cluster headache, 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 Essential hypertension, benign Oropharyngeal dysphagia Dysphagia, oropharyngeal phase Gastroesophageal reflux disease, unspecified whether esophagitis present 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 and other lower urinary tract symptoms (LUTS) Urinary tract infection associated with indwelling urethral catheter, sequela Nontoxic single thyroid nodule Nontoxic uninodular goiter Acute blood loss anemia Acute posthemorrhagic anemia Raynaud's phenomenon without gangrene Compression fracture of L3 vertebra, sequela Osteoporosis, unspecified osteoporosis type, unspecified pathological fracture presence Degenerative scoliosis Situational anxiety Other anxiety states Bilateral carotid artery stenosis Occlusion and stenosis of carotid artery without mention of cerebral infarction Pre-operative examination- Primary Preoperative examination, unspecified Essential hypertension, benign Gastroesophageal reflux disease, unspecified whether esophagitis present Hiatal hernia Diaphragmatic hernia without mention of obstruction or gangrene Osteoporosis, unspecified osteoporosis type, unspecified pathological fracture presence Peripheral edema Edema Raynaud's phenomenon without gangrene Situational anxiety Other anxiety states 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 spondylosis without myelopathy Bilateral carotid artery stenosis Occlusion and stenosis of carotid artery without mention of cerebral infarction 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 and other lower urinary tract symptoms (LUTS) Thyroid nodule Nontoxic uninodular goiter Pre-operative examination- Primary Preoperative examination, unspecified Bilateral carotid artery stenosis Occlusion and stenosis of carotid artery without mention of cerebral infarction Essential hypertension, benign Gastroesophageal reflux disease, unspecified whether esophagitis present 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 loss Iron deficiency anemia secondary to blood loss (chronic) Peripheral edema Edema Raynaud's phenomenon without gangrene Situational anxiety Other anxiety states Thyroid nodule 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 spondylosis without myelopathy Osteoporosis, unspecified osteoporosis type, unspecified pathological fracture presence Cognitive impairment Unspecified persistent mental disorders due to conditions classified elsewhere 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 and other lower urinary tract symptoms (LUTS) Abnormal SPEP Other nonspecific findings on examination of blood Urinary tract infection without hematuria, site unspecified Thyroid nodule- Primary Nontoxic uninodular goiter [facility] Diagnosis Degenerative lumbar spinal stenosis- Primary Spinal stenosis, lumbar region, without neurogenic claudication Degenerative scoliosis Acute postoperative pain Other acute postoperative pain S/P lumbar spinal fusion Arthrodesis status Sepsis due to Escherichia coli with acute organ dysfunction and septic shock, unspecified type Essential hypertension, benign Urinary tract infection associated with indwelling urethral catheter, sequela Sepsis due to Gram-negative organism with septic shock (HCC) Septicemia due to gram-negative organism, unspecified Acute blood loss anemia Acute posthemorrhagic anemia Spontaneous pneumothorax Other pneumothorax Severe protein-calorie malnutrition (HCC) Other severe protein-calorie malnutrition Acute postoperative respiratory insufficiency Other pulmonary insufficiency, not elsewhere classified, following trauma and surgery Delirium Other alteration of consciousness Hemodynamic instability Other symptoms involving cardiovascular system Oropharyngeal dysphagia Dysphagia, oropharyngeal phase Thrombocytopenia Thrombocytopenia, unspecified Delirium Other alteration of consciousness Hypomagnesemia Disorders of magnesium metabolism Hypophosphataemia Sepsis due to Escherichia coli (E. coli) (HCC) Septicemia due to Escherichia coli (E. coli) Sepsis due to Gram-negative organism with septic shock (HCC) Septicemia due to gram-negative organism, unspecified Acute postoperative respiratory insufficiency Other pulmonary insufficiency, not elsewhere classified, following trauma and surgery BRITTANY (acute kidney injury) Acute kidney failure, unspecified Pre-operative examination- Primary Preoperative examination, unspecified Degenerative scoliosis Episodic cluster headache, 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 Essential hypertension, benign 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 and other lower urinary tract symptoms (LUTS) Raynaud's phenomenon without gangrene Compression fracture of L3 vertebra, sequela Osteoporosis, unspecified osteoporosis type, unspecified pathological fracture presence Chronic constipation Unspecified constipation Benign intracranial hypertension Situational anxiety Other anxiety states Thyroid nodule Nontoxic uninodular goiter Bilateral carotid artery stenosis Occlusion and stenosis of carotid artery without mention of cerebral infarction Pre-operative examination- Primary Preoperative examination, unspecified Nephrolithiasis Calculus of kidney Benign intracranial hypertension Episodic cluster headache, 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 Essential hypertension, benign Oropharyngeal dysphagia Dysphagia, oropharyngeal phase Gastroesophageal reflux disease, unspecified whether esophagitis present 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 and other lower urinary tract symptoms (LUTS) Urinary tract infection associated with indwelling urethral catheter, sequela Nontoxic single thyroid nodule Nontoxic uninodular goiter Acute blood loss anemia Acute posthemorrhagic anemia Raynaud's phenomenon without gangrene Compression fracture of L3 vertebra, sequela Osteoporosis, unspecified osteoporosis type, unspecified pathological fracture presence Degenerative scoliosis Situational anxiety Other anxiety states Bilateral carotid artery stenosis Occlusion and stenosis of carotid artery without mention of cerebral infarction Pre-operative examination- Primary Preoperative examination, unspecified Essential hypertension, benign Gastroesophageal reflux disease, unspecified whether esophagitis present Hiatal hernia Diaphragmatic hernia without mention of obstruction or gangrene Osteoporosis, unspecified osteoporosis type, unspecified pathological fracture presence Peripheral edema Edema Raynaud's phenomenon without gangrene Situational anxiety Other anxiety states 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 spondylosis without myelopathy Bilateral carotid artery stenosis Occlusion and stenosis of carotid artery without mention of cerebral infarction BPH with urinary obstruction Hypertrophy of prostate with urinary obstruction and other lower urinary tract symptoms (LUTS) Thyroid nodule Nontoxic uninodular goiter Pre-operative examination- Primary Preoperative examination, unspecified Bilateral carotid artery stenosis Occlusion and stenosis of carotid artery without mention of cerebral infarction Essential hypertension, benign Gastroesophageal reflux disease, unspecified whether esophagitis present 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 loss Iron deficiency anemia secondary to blood loss (chronic) Peripheral edema Edema Raynaud's phenomenon without gangrene Situational anxiety Other anxiety states Thyroid nodule 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 spondylosis without myelopathy Osteoporosis, unspecified osteoporosis type, unspecified pathological fracture presence Cognitive impairment Unspecified persistent mental disorders due to conditions classified elsewhere BPH with urinary obstruction Hypertrophy of prostate with urinary obstruction and other lower urinary tract symptoms (LUTS) Abnormal SPEP Other nonspecific findings on examination of blood Urinary tract infection without hematuria, site unspecified Nightmares Other dysfunctions of sleep stages or arousal from sleep Dementia without behavioral disturbance (HCC) Dementia, unspecified, without behavioral disturbance Situational depression Adjustment disorder with depressed mood [facility] Diagnosis Degenerative lumbar spinal stenosis- Primary Spinal stenosis, lumbar region, without neurogenic claudication Degenerative scoliosis Acute postoperative pain Other acute postoperative pain S/P lumbar spinal fusion Arthrodesis status Sepsis due to Escherichia coli with acute organ dysfunction and septic shock, unspecified type Essential hypertension, benign Urinary tract infection associated with indwelling urethral catheter, sequela Sepsis due to Gram-negative organism with septic shock (HCC) Septicemia due to gram-negative organism, unspecified Acute blood loss anemia Acute posthemorrhagic anemia Spontaneous pneumothorax Other pneumothorax Severe protein-calorie malnutrition (HCC) Other severe protein-calorie malnutrition Acute postoperative respiratory insufficiency Other pulmonary insufficiency, not elsewhere classified, following trauma and surgery Delirium Other alteration of consciousness Hemodynamic instability Other symptoms involving cardiovascular system Oropharyngeal dysphagia Dysphagia, oropharyngeal phase Thrombocytopenia Thrombocytopenia, unspecified Delirium Other alteration of consciousness Hypomagnesemia Disorders of magnesium metabolism Hypophosphataemia Sepsis due to Escherichia coli (E. coli) (HCC) Septicemia due to Escherichia coli (E. coli) Sepsis due to Gram-negative organism with septic shock (HCC) Septicemia due to gram-negative organism, unspecified Acute postoperative respiratory insufficiency Other pulmonary insufficiency, not elsewhere classified, following trauma and surgery BRITTANY (acute kidney injury) Acute kidney failure, unspecified Pre-operative examination- Primary Preoperative examination, unspecified Degenerative scoliosis Episodic cluster headache, 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 Essential hypertension, benign BPH with urinary obstruction Hypertrophy of prostate with urinary obstruction and other lower urinary tract symptoms (LUTS) Raynaud's phenomenon without gangrene Compression fracture of L3 vertebra, sequela Osteoporosis, unspecified osteoporosis type, unspecified pathological fracture presence Chronic constipation Unspecified constipation Benign intracranial hypertension Situational anxiety Other anxiety states Thyroid nodule Nontoxic uninodular goiter Bilateral carotid artery stenosis Occlusion and stenosis of carotid artery without mention of cerebral infarction Pre-operative examination- Primary Preoperative examination, unspecified Nephrolithiasis Calculus of kidney Benign intracranial hypertension Episodic cluster headache, 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 Essential hypertension, benign Oropharyngeal dysphagia Dysphagia, oropharyngeal phase Gastroesophageal reflux disease, unspecified whether esophagitis present BPH with urinary obstruction Hypertrophy of prostate with urinary obstruction and other lower urinary tract symptoms (LUTS) Urinary tract infection associated with indwelling urethral catheter, sequela Nontoxic single thyroid nodule Nontoxic uninodular goiter Acute blood loss anemia Acute posthemorrhagic anemia Raynaud's phenomenon without gangrene Compression fracture of L3 vertebra, sequela Osteoporosis, unspecified osteoporosis type, unspecified pathological fracture presence Degenerative scoliosis Situational anxiety Other anxiety states Bilateral carotid artery stenosis Occlusion and stenosis of carotid artery without mention of cerebral infarction Pre-operative examination- Primary Preoperative examination, unspecified Essential hypertension, benign Gastroesophageal reflux disease, unspecified whether esophagitis present Hiatal hernia Diaphragmatic hernia without mention of obstruction or gangrene Osteoporosis, unspecified osteoporosis type, unspecified pathological fracture presence Peripheral edema Edema Raynaud's phenomenon without gangrene Situational anxiety Other anxiety states 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 spondylosis without myelopathy Bilateral carotid artery stenosis Occlusion and stenosis of carotid artery without mention of cerebral infarction BPH with urinary obstruction Hypertrophy of prostate with urinary obstruction and other lower urinary tract symptoms (LUTS) Thyroid nodule Nontoxic uninodular goiter Pre-operative examination- Primary Preoperative examination, unspecified Bilateral carotid artery stenosis Occlusion and stenosis of carotid artery without mention of cerebral infarction Essential hypertension, benign Gastroesophageal reflux disease, unspecified whether esophagitis present 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 loss Iron deficiency anemia secondary to blood loss (chronic) Peripheral edema Edema Raynaud's phenomenon without gangrene Situational anxiety Other anxiety states Thyroid nodule 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 spondylosis without myelopathy Osteoporosis, unspecified osteoporosis type, unspecified pathological fracture presence Cognitive impairment Unspecified persistent mental disorders due to conditions classified elsewhere BPH with urinary obstruction Hypertrophy of prostate with urinary obstruction and other lower urinary tract symptoms (LUTS) Abnormal SPEP Other nonspecific findings on examination of blood Urinary tract infection without hematuria, site unspecified History of recurrent UTIs- Primary Personal history of urinary (tract) infection Sepsis due to Escherichia coli without acute organ dysfunction (HCC) Elevated troponin I level Other abnormal blood chemistry Lumbar radiculopathy Thoracic or lumbosacral neuritis or radiculitis, unspecified [facility] Diagnosis Degenerative lumbar spinal stenosis- Primary Spinal stenosis, lumbar region, without neurogenic claudication Degenerative scoliosis Acute postoperative pain Other acute postoperative pain S/P lumbar spinal fusion Arthrodesis status Sepsis due to Escherichia coli with acute organ dysfunction and septic shock, unspecified type Essential hypertension, benign Urinary tract infection associated with indwelling urethral catheter, sequela Sepsis due to Gram-negative organism with septic shock (HCC) Septicemia due to gram-negative organism, unspecified Acute blood loss anemia Acute posthemorrhagic anemia Spontaneous pneumothorax Other pneumothorax Severe protein-calorie malnutrition (HCC) Other severe protein-calorie malnutrition Acute postoperative respiratory insufficiency Other pulmonary insufficiency, not elsewhere classified, following trauma and surgery Delirium Other alteration of consciousness Hemodynamic instability Other symptoms involving cardiovascular system Oropharyngeal dysphagia Dysphagia, oropharyngeal phase Thrombocytopenia Thrombocytopenia, unspecified Delirium Other alteration of consciousness Hypomagnesemia Disorders of magnesium metabolism Hypophosphataemia Sepsis due to Escherichia coli (E. coli) (HCC) Septicemia due to Escherichia coli (E. coli) Sepsis due to Gram-negative organism with septic shock ([facility]) Septicemia due to gram-negative organism, unspecified Acute postoperative respiratory insufficiency Other pulmonary insufficiency, not elsewhere classified, following trauma and surgery BRITTANY (acute kidney injury) Acute kidney failure, unspecified Pre-operative examination- Primary Preoperative examination, unspecified Degenerative scoliosis Episodic cluster headache, 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 Essential hypertension, benign BPH with urinary obstruction Hypertrophy of prostate with urinary obstruction and other lower urinary tract symptoms (LUTS) Raynaud's phenomenon without gangrene Compression fracture of L3 vertebra, sequela Osteoporosis, unspecified osteoporosis type, unspecified pathological fracture presence Chronic constipation Unspecified constipation Benign intracranial hypertension Situational anxiety Other anxiety states Thyroid nodule Nontoxic uninodular goiter Bilateral carotid artery stenosis Occlusion and stenosis of carotid artery without mention of cerebral infarction Pre-operative examination- Primary Preoperative examination, unspecified Nephrolithiasis Calculus of kidney Benign intracranial hypertension Episodic cluster headache, 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 Essential hypertension, benign Oropharyngeal dysphagia Dysphagia, oropharyngeal phase Gastroesophageal reflux disease, unspecified whether esophagitis present BPH with urinary obstruction Hypertrophy of prostate with urinary obstruction and other lower urinary tract symptoms (LUTS) Urinary tract infection associated with indwelling urethral catheter, sequela Nontoxic single thyroid nodule Nontoxic uninodular goiter Acute blood loss anemia Acute posthemorrhagic anemia Raynaud's phenomenon without gangrene Compression fracture of L3 vertebra, sequela Osteoporosis, unspecified osteoporosis type, unspecified pathological fracture presence Degenerative scoliosis Situational anxiety Other anxiety states Bilateral carotid artery stenosis Occlusion and stenosis of carotid artery without mention of cerebral infarction Pre-operative examination- Primary Preoperative examination, unspecified Essential hypertension, benign Gastroesophageal reflux disease, unspecified whether esophagitis present Hiatal hernia Diaphragmatic hernia without mention of obstruction or gangrene Osteoporosis, unspecified osteoporosis type, unspecified pathological fracture presence Peripheral edema Edema Raynaud's phenomenon without gangrene Situational anxiety Other anxiety states 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 spondylosis without myelopathy Bilateral carotid artery stenosis Occlusion and stenosis of carotid artery without mention of cerebral infarction BPH with urinary obstruction Hypertrophy of prostate with urinary obstruction and other lower urinary tract symptoms (LUTS) Thyroid nodule Nontoxic uninodular goiter Pre-operative examination- Primary Preoperative examination, unspecified Bilateral carotid artery stenosis Occlusion and stenosis of carotid artery without mention of cerebral infarction Essential hypertension, benign Gastroesophageal reflux disease, unspecified whether esophagitis present 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 loss Iron deficiency anemia secondary to blood loss (chronic) Peripheral edema Edema Raynaud's phenomenon without gangrene Situational anxiety Other anxiety states Thyroid nodule 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 spondylosis without myelopathy Osteoporosis, unspecified osteoporosis type, unspecified pathological fracture presence Cognitive impairment Unspecified persistent mental disorders due to conditions classified elsewhere BPH with urinary obstruction Hypertrophy of prostate with urinary obstruction and other lower urinary tract symptoms (LUTS) Abnormal SPEP Other nonspecific findings on examination of blood Urinary tract infection without hematuria, site unspecified Pelvic floor dysfunction Pelvic muscle wasting [facility] Diagnosis Degenerative lumbar spinal stenosis- Primary Spinal stenosis, lumbar region, without neurogenic claudication Degenerative scoliosis Acute postoperative pain Other acute postoperative pain S/P lumbar spinal fusion Arthrodesis status Sepsis due to Escherichia coli with acute organ dysfunction and septic shock, unspecified type Essential hypertension, benign Urinary tract infection associated with indwelling urethral catheter, sequela Sepsis due to Gram-negative organism with septic shock (HCC) Septicemia due to gram-negative organism, unspecified Acute blood loss anemia Acute posthemorrhagic anemia Spontaneous pneumothorax Other pneumothorax Severe protein-calorie malnutrition (HCC) Other severe protein-calorie malnutrition Acute postoperative respiratory insufficiency Other pulmonary insufficiency, not elsewhere classified, following trauma and surgery Delirium Other alteration of consciousness Hemodynamic instability Other symptoms involving cardiovascular system Oropharyngeal dysphagia Dysphagia, oropharyngeal phase Thrombocytopenia Thrombocytopenia, unspecified Delirium Other alteration of consciousness Hypomagnesemia Disorders of magnesium metabolism Hypophosphataemia Sepsis due to Escherichia coli (E. coli) (HCC) Septicemia due to Escherichia coli (E. coli) Sepsis due to Gram-negative organism with septic shock (HCC) Septicemia due to gram-negative organism, unspecified Acute postoperative respiratory insufficiency Other pulmonary insufficiency, not elsewhere classified, following trauma and surgery BRITTANY (acute kidney injury) Acute kidney failure, unspecified Pre-operative examination- Primary Preoperative examination, unspecified Degenerative scoliosis Episodic cluster headache, 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 Essential hypertension, benign BPH with urinary obstruction Hypertrophy of prostate with urinary obstruction and other lower urinary tract symptoms (LUTS) Raynaud's phenomenon without gangrene Compression fracture of L3 vertebra, sequela Osteoporosis, unspecified osteoporosis type, unspecified pathological fracture presence Chronic constipation Unspecified constipation Benign intracranial hypertension Situational anxiety Other anxiety states Thyroid nodule Nontoxic uninodular goiter Bilateral carotid artery stenosis Occlusion and stenosis of carotid artery without mention of cerebral infarction Pre-operative examination- Primary Preoperative examination, unspecified Nephrolithiasis Calculus of kidney Benign intracranial hypertension Episodic cluster headache, 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 Essential hypertension, benign Oropharyngeal dysphagia Dysphagia, oropharyngeal phase Gastroesophageal reflux disease, unspecified whether esophagitis present BPH with urinary obstruction Hypertrophy of prostate with urinary obstruction and other lower urinary tract symptoms (LUTS) Urinary tract infection associated with indwelling urethral catheter, sequela Nontoxic single thyroid nodule Nontoxic uninodular goiter Acute blood loss anemia Acute posthemorrhagic anemia Raynaud's phenomenon without gangrene Compression fracture of L3 vertebra, sequela Osteoporosis, unspecified osteoporosis type, unspecified pathological fracture presence Degenerative scoliosis Situational anxiety Other anxiety states Bilateral carotid artery stenosis Occlusion and stenosis of carotid artery without mention of cerebral infarction Pre-operative examination- Primary Preoperative examination, unspecified Essential hypertension, benign Gastroesophageal reflux disease, unspecified whether esophagitis present Hiatal hernia Diaphragmatic hernia without mention of obstruction or gangrene Osteoporosis, unspecified osteoporosis type, unspecified pathological fracture presence Peripheral edema Edema Raynaud's phenomenon without gangrene Situational anxiety Other anxiety states 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 spondylosis without myelopathy Bilateral carotid artery stenosis Occlusion and stenosis of carotid artery without mention of cerebral infarction BPH with urinary obstruction Hypertrophy of prostate with urinary obstruction and other lower urinary tract symptoms (LUTS) Thyroid nodule Nontoxic uninodular goiter Pre-operative examination- Primary Preoperative examination, unspecified Bilateral carotid artery stenosis Occlusion and stenosis of carotid artery without mention of cerebral infarction Essential hypertension, benign Gastroesophageal reflux disease, unspecified whether esophagitis present 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 loss Iron deficiency anemia secondary to blood loss (chronic) Peripheral edema Edema Raynaud's phenomenon without gangrene Situational anxiety Other anxiety states Thyroid nodule 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 spondylosis without myelopathy Osteoporosis, unspecified osteoporosis type, unspecified pathological fracture presence Cognitive impairment Unspecified persistent mental disorders due to conditions classified elsewhere BPH with urinary obstruction Hypertrophy of prostate with urinary obstruction and other lower urinary tract symptoms (LUTS) Abnormal SPEP Other nonspecific findings on examination of blood Urinary tract infection without hematuria, site unspecified Calculus of kidney- Primary [facility] Diagnosis Degenerative lumbar spinal stenosis- Primary Spinal stenosis, lumbar region, without neurogenic claudication Degenerative scoliosis Acute postoperative pain Other acute postoperative pain S/P lumbar spinal fusion Arthrodesis status Sepsis due to Escherichia coli with acute organ dysfunction and septic shock, unspecified type Essential hypertension, benign Urinary tract infection associated with indwelling urethral catheter, sequela Sepsis due to Gram-negative organism with septic shock (HCC) Septicemia due to gram-negative organism, unspecified Acute blood loss anemia Acute posthemorrhagic anemia Spontaneous pneumothorax Other pneumothorax Severe protein-calorie malnutrition (HCC) Other severe protein-calorie malnutrition Acute postoperative respiratory insufficiency Other pulmonary insufficiency, not elsewhere classified, following trauma and surgery Delirium Other alteration of consciousness Hemodynamic instability Other symptoms involving cardiovascular system Oropharyngeal dysphagia Dysphagia, oropharyngeal phase Thrombocytopenia Thrombocytopenia, unspecified Delirium Other alteration of consciousness Hypomagnesemia Disorders of magnesium metabolism Hypophosphataemia Sepsis due to Escherichia coli (E. coli) (HCC) Septicemia due to Escherichia coli (E. coli) Sepsis due to Gram-negative organism with septic shock (HCC) Septicemia due to gram-negative organism, unspecified Acute postoperative respiratory insufficiency Other pulmonary insufficiency, not elsewhere classified, following trauma and surgery BRITTANY (acute kidney injury) Acute kidney failure, unspecified Pre-operative examination- Primary Preoperative examination, unspecified Degenerative scoliosis Episodic cluster headache, 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 Essential hypertension, benign BPH with urinary obstruction Hypertrophy of prostate with urinary obstruction and other lower urinary tract symptoms (LUTS) Raynaud's phenomenon without gangrene Compression fracture of L3 vertebra, sequela Osteoporosis, unspecified osteoporosis type, unspecified pathological fracture presence Chronic constipation Unspecified constipation Benign intracranial hypertension Situational anxiety Other anxiety states Thyroid nodule Nontoxic uninodular goiter Bilateral carotid artery stenosis Occlusion and stenosis of carotid artery without mention of cerebral infarction Pre-operative examination- Primary Preoperative examination, unspecified Nephrolithiasis Calculus of kidney Benign intracranial hypertension Episodic cluster headache, 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 Essential hypertension, benign Oropharyngeal dysphagia Dysphagia, oropharyngeal phase Gastroesophageal reflux disease, unspecified whether esophagitis present BPH with urinary obstruction Hypertrophy of prostate with urinary obstruction and other lower urinary tract symptoms (LUTS) Urinary tract infection associated with indwelling urethral catheter, sequela Nontoxic single thyroid nodule Nontoxic uninodular goiter Acute blood loss anemia Acute posthemorrhagic anemia Raynaud's phenomenon without gangrene Compression fracture of L3 vertebra, sequela Osteoporosis, unspecified osteoporosis type, unspecified pathological fracture presence Degenerative scoliosis Situational anxiety Other anxiety states Bilateral carotid artery stenosis Occlusion and stenosis of carotid artery without mention of cerebral infarction Pre-operative examination- Primary Preoperative examination, unspecified Essential hypertension, benign Gastroesophageal reflux disease, unspecified whether esophagitis present Hiatal hernia Diaphragmatic hernia without mention of obstruction or gangrene Osteoporosis, unspecified osteoporosis type, unspecified pathological fracture presence Peripheral edema Edema Raynaud's phenomenon without gangrene Situational anxiety Other anxiety states 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 spondylosis without myelopathy Bilateral carotid artery stenosis Occlusion and stenosis of carotid artery without mention of cerebral infarction BPH with urinary obstruction Hypertrophy of prostate with urinary obstruction and other lower urinary tract symptoms (LUTS) Thyroid nodule Nontoxic uninodular goiter Pre-operative examination- Primary Preoperative examination, unspecified Bilateral carotid artery stenosis Occlusion and stenosis of carotid artery without mention of cerebral infarction Essential hypertension, benign Gastroesophageal reflux disease, unspecified whether esophagitis present 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 loss Iron deficiency anemia secondary to blood loss (chronic) Peripheral edema Edema Raynaud's phenomenon without gangrene Situational anxiety Other anxiety states Thyroid nodule 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 spondylosis without myelopathy Osteoporosis, unspecified osteoporosis type, unspecified pathological fracture presence Cognitive impairment Unspecified persistent mental disorders due to conditions classified elsewhere BPH with urinary obstruction Hypertrophy of prostate with urinary obstruction and other lower urinary tract symptoms (LUTS) Abnormal SPEP Other nonspecific findings on examination of blood Urinary tract infection without hematuria, site unspecified Recurrent UTI- Primary Urinary tract infection, site not specified Nephrolithiasis Calculus of kidney Allergy to multiple antibiotics Other drug allergy [facility] Diagnosis Degenerative lumbar spinal stenosis- Primary Spinal stenosis, lumbar region, without neurogenic claudication Degenerative scoliosis Acute postoperative pain Other acute postoperative pain S/P lumbar spinal fusion Arthrodesis status Sepsis due to Escherichia coli with acute organ dysfunction and septic shock, unspecified type Essential hypertension, benign Urinary tract infection associated with indwelling urethral catheter, sequela Sepsis due to Gram-negative organism with septic shock (HCC) Septicemia due to gram-negative organism, unspecified Acute blood loss anemia Acute posthemorrhagic anemia Spontaneous pneumothorax Other pneumothorax Severe protein-calorie malnutrition (HCC) Other severe protein-calorie malnutrition Acute postoperative respiratory insufficiency Other pulmonary insufficiency, not elsewhere classified, following trauma and surgery Delirium Other alteration of consciousness Hemodynamic instability Other symptoms involving cardiovascular system Oropharyngeal dysphagia Dysphagia, oropharyngeal phase Thrombocytopenia Thrombocytopenia, unspecified Delirium Other alteration of consciousness Hypomagnesemia Disorders of magnesium metabolism Hypophosphataemia Sepsis due to Escherichia coli (E. coli) ([facility]) Septicemia due to Escherichia coli (E. coli) Sepsis due to Gram-negative organism with septic shock ([facility]) Septicemia due to gram-negative organism, unspecified Acute postoperative respiratory insufficiency Other pulmonary insufficiency, not elsewhere classified, following trauma and surgery BRITTANY (acute kidney injury) Acute kidney failure, unspecified Pre-operative examination- Primary Preoperative examination, unspecified Degenerative scoliosis Episodic cluster headache, 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 Essential hypertension, benign BPH with urinary obstruction Hypertrophy of prostate with urinary obstruction and other lower urinary tract symptoms (LUTS) Raynaud's phenomenon without gangrene Compression fracture of L3 vertebra, sequela Osteoporosis, unspecified osteoporosis type, unspecified pathological fracture presence Chronic constipation Unspecified constipation Benign intracranial hypertension Situational anxiety Other anxiety states Thyroid nodule Nontoxic uninodular goiter Bilateral carotid artery stenosis Occlusion and stenosis of carotid artery without mention of cerebral infarction Pre-operative examination- Primary Preoperative examination, unspecified Nephrolithiasis Calculus of [place] Benign intracranial hypertension Episodic cluster headache, 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 Essential hypertension, benign Oropharyngeal dysphagia Dysphagia, oropharyngeal phase Gastroesophageal reflux disease, unspecified whether esophagitis present BPH with urinary obstruction Hypertrophy of prostate with urinary obstruction and other lower urinary tract symptoms (LUTS) Urinary tract infection associated with indwelling urethral catheter, sequela Nontoxic single thyroid nodule Nontoxic uninodular goiter Acute blood loss anemia Acute posthemorrhagic anemia Raynaud's phenomenon without gangrene Compression fracture of L3 vertebra, sequela Osteoporosis, unspecified osteoporosis type, unspecified pathological fracture presence Degenerative scoliosis Situational anxiety Other anxiety states Bilateral carotid artery stenosis Occlusion and stenosis of carotid artery without mention of cerebral infarction Pre-operative examination- Primary Preoperative examination, unspecified Essential hypertension, benign Gastroesophageal reflux disease, unspecified whether esophagitis present Hiatal hernia Diaphragmatic hernia without mention of obstruction or gangrene Osteoporosis, unspecified osteoporosis type, unspecified pathological fracture presence Peripheral edema Edema Raynaud's phenomenon without gangrene Situational anxiety Other anxiety states 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 spondylosis without myelopathy Bilateral carotid artery stenosis Occlusion and stenosis of carotid artery without mention of cerebral infarction BPH with urinary obstruction Hypertrophy of prostate with urinary obstruction and other lower urinary tract symptoms (LUTS) Thyroid nodule Nontoxic uninodular goiter Pre-operative examination- Primary Preoperative examination, unspecified Bilateral carotid artery stenosis Occlusion and stenosis of carotid artery without mention of cerebral infarction Essential hypertension, benign Gastroesophageal reflux disease, unspecified whether esophagitis present 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 loss Iron deficiency anemia secondary to blood loss (chronic) Peripheral edema Edema Raynaud's phenomenon without gangrene Situational anxiety Other anxiety states Thyroid nodule 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 spondylosis without myelopathy Osteoporosis, unspecified osteoporosis type, unspecified pathological fracture presence Cognitive impairment Unspecified persistent mental disorders due to conditions classified elsewhere BPH with urinary obstruction Hypertrophy of prostate with urinary obstruction and other lower urinary tract symptoms (LUTS) Abnormal SPEP Other nonspecific findings on examination of blood Urinary tract infection without hematuria, site unspecified Urinary tract infection without hematuria, site unspecified- Primary Gastroesophageal reflux disease, unspecified whether esophagitis present [facility] Diagnosis Degenerative lumbar spinal stenosis- Primary Spinal stenosis, lumbar region, without neurogenic claudication Degenerative scoliosis Acute postoperative pain Other acute postoperative pain S/P lumbar spinal fusion Arthrodesis status Sepsis due to Escherichia coli with acute organ dysfunction and septic shock, unspecified type Essential hypertension, benign Urinary tract infection associated with indwelling urethral catheter, sequela Sepsis due to Gram-negative organism with septic shock (HCC) Septicemia due to gram-negative organism, unspecified Acute blood loss anemia Acute posthemorrhagic anemia Spontaneous pneumothorax Other pneumothorax Severe protein-calorie malnutrition (HCC) Other severe protein-calorie malnutrition Acute postoperative respiratory insufficiency Other pulmonary insufficiency, not elsewhere classified, following trauma and surgery Delirium Other alteration of consciousness Hemodynamic instability Other symptoms involving cardiovascular system Oropharyngeal dysphagia Dysphagia, oropharyngeal phase Thrombocytopenia Thrombocytopenia, unspecified Delirium Other alteration of consciousness Hypomagnesemia Disorders of magnesium metabolism Hypophosphataemia Sepsis due to Escherichia coli (E. coli) (HCC) Septicemia due to Escherichia coli (E. coli) Sepsis due to Gram-negative organism with septic shock ([facility]) Septicemia due to gram-negative organism, unspecified Acute postoperative respiratory insufficiency Other pulmonary insufficiency, not elsewhere classified, following trauma and surgery BRITTANY (acute kidney injury) Acute kidney failure, unspecified Pre-operative examination- Primary Preoperative examination, unspecified Degenerative scoliosis Episodic cluster headache, 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 Essential hypertension, benign BPH with urinary obstruction Hypertrophy of prostate with urinary obstruction and other lower urinary tract symptoms (LUTS) Raynaud's phenomenon without gangrene Compression fracture of L3 vertebra, sequela Osteoporosis, unspecified osteoporosis type, unspecified pathological fracture presence Chronic constipation Unspecified constipation Benign intracranial hypertension Situational anxiety Other anxiety states Thyroid nodule Nontoxic uninodular goiter Bilateral carotid artery stenosis Occlusion and stenosis of carotid artery without mention of cerebral infarction Pre-operative examination- Primary Preoperative examination, unspecified Nephrolithiasis Calculus of kidney Benign intracranial hypertension Episodic cluster headache, 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 Essential hypertension, benign Oropharyngeal dysphagia Dysphagia, oropharyngeal phase Gastroesophageal reflux disease, unspecified whether esophagitis present BPH with urinary obstruction Hypertrophy of prostate with urinary obstruction and other lower urinary tract symptoms (LUTS) Urinary tract infection associated with indwelling urethral catheter, sequela Nontoxic single thyroid nodule Nontoxic uninodular goiter Acute blood loss anemia Acute posthemorrhagic anemia Raynaud's phenomenon without gangrene Compression fracture of L3 vertebra, sequela Osteoporosis, unspecified osteoporosis type, unspecified pathological fracture presence Degenerative scoliosis Situational anxiety Other anxiety states Bilateral carotid artery stenosis Occlusion and stenosis of carotid artery without mention of cerebral infarction Pre-operative examination- Primary Preoperative examination, unspecified Essential hypertension, benign Gastroesophageal reflux disease, unspecified whether esophagitis present Hiatal hernia Diaphragmatic hernia without mention of obstruction or gangrene Osteoporosis, unspecified osteoporosis type, unspecified pathological fracture presence Peripheral edema Edema Raynaud's phenomenon without gangrene Situational anxiety Other anxiety states 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 spondylosis without myelopathy Bilateral carotid artery stenosis Occlusion and stenosis of carotid artery without mention of cerebral infarction BPH with urinary obstruction Hypertrophy of prostate with urinary obstruction and other lower urinary tract symptoms (LUTS) Thyroid nodule Nontoxic uninodular goiter Pre-operative examination- Primary Preoperative examination, unspecified Bilateral carotid artery stenosis Occlusion and stenosis of carotid artery without mention of cerebral infarction Essential hypertension, benign Gastroesophageal reflux disease, unspecified whether esophagitis present 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 loss Iron deficiency anemia secondary to blood loss (chronic) Peripheral edema Edema Raynaud's phenomenon without gangrene Situational anxiety Other anxiety states Thyroid nodule 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 spondylosis without myelopathy Osteoporosis, unspecified osteoporosis type, unspecified pathological fracture presence Cognitive impairment Unspecified persistent mental disorders due to conditions classified elsewhere BPH with urinary obstruction Hypertrophy of prostate with urinary obstruction and other lower urinary tract symptoms (LUTS) Abnormal SPEP Other nonspecific findings on examination of blood Urinary tract infection without hematuria, site unspecified Adverse effect of drug, sequela- Primary Allergy to multiple antibiotics Other drug allergy Sputum production 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) Monoclonal paraproteinemia [facility] Degenerative lumbar spinal stenosis- Primary Spinal stenosis, lumbar region, without neurogenic claudication Degenerative scoliosis Acute postoperative pain Other acute postoperative pain S/P lumbar spinal fusion Arthrodesis status Sepsis due to Escherichia coli with acute organ dysfunction and septic shock, unspecified type Essential hypertension, benign Urinary tract infection associated with indwelling urethral catheter, sequela Sepsis due to Gram-negative organism with septic shock (HCC) Septicemia due to gram-negative organism, unspecified Acute blood loss anemia Acute posthemorrhagic anemia Spontaneous pneumothorax Other pneumothorax Severe protein-calorie malnutrition (HCC) Other severe protein-calorie malnutrition Acute postoperative respiratory insufficiency Other pulmonary insufficiency, not elsewhere classified, following trauma and surgery Delirium Other alteration of consciousness Hemodynamic instability Other symptoms involving cardiovascular system Oropharyngeal dysphagia Dysphagia, oropharyngeal phase Thrombocytopenia Thrombocytopenia, unspecified Delirium Other alteration of consciousness Hypomagnesemia Disorders of magnesium metabolism Hypophosphataemia Sepsis due to Escherichia coli (E. coli) (HCC) Septicemia due to Escherichia coli (E. coli) Sepsis due to Gram-negative organism with septic shock (HCC) Septicemia due to gram-negative organism, unspecified Acute postoperative respiratory insufficiency Other pulmonary insufficiency, not elsewhere classified, following trauma and surgery BRITTANY (acute kidney injury) Acute kidney failure, unspecified Pre-operative examination- Primary Preoperative examination, unspecified Degenerative scoliosis Episodic cluster headache, 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 Essential hypertension, benign BPH with urinary obstruction Hypertrophy of prostate with urinary obstruction and other lower urinary tract symptoms (LUTS) Raynaud's phenomenon without gangrene Compression fracture of L3 vertebra, sequela Osteoporosis, unspecified osteoporosis type, unspecified pathological fracture presence Chronic constipation Unspecified constipation Benign intracranial hypertension Situational anxiety Other anxiety states Thyroid nodule Nontoxic uninodular goiter Bilateral carotid artery stenosis Occlusion and stenosis of carotid artery without mention of cerebral infarction Pre-operative examination- Primary Preoperative examination, unspecified Nephrolithiasis Calculus of kidney Benign intracranial hypertension Episodic cluster headache, 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 Essential hypertension, benign Oropharyngeal dysphagia Dysphagia, oropharyngeal phase Gastroesophageal reflux disease, unspecified whether esophagitis present BPH with urinary obstruction Hypertrophy of prostate with urinary obstruction and other lower urinary tract symptoms (LUTS) Urinary tract infection associated with indwelling urethral catheter, sequela Nontoxic single thyroid nodule Nontoxic uninodular goiter Acute blood loss anemia Acute posthemorrhagic anemia Raynaud's phenomenon without gangrene Compression fracture of L3 vertebra, sequela Osteoporosis, unspecified osteoporosis type, unspecified pathological fracture presence Degenerative scoliosis Situational anxiety Other anxiety states Bilateral carotid artery stenosis Occlusion and stenosis of carotid artery without mention of cerebral infarction Pre-operative examination- Primary Preoperative examination, unspecified Essential hypertension, benign Gastroesophageal reflux disease, unspecified whether esophagitis present Hiatal hernia Diaphragmatic hernia without mention of obstruction or gangrene Osteoporosis, unspecified osteoporosis type, unspecified pathological fracture presence Peripheral edema Edema Raynaud's phenomenon without gangrene Situational anxiety Other anxiety states 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 spondylosis without myelopathy Bilateral carotid artery stenosis Occlusion and stenosis of carotid artery without mention of cerebral infarction BPH with urinary obstruction Hypertrophy of prostate with urinary obstruction and other lower urinary tract symptoms (LUTS) Thyroid nodule Nontoxic uninodular goiter Pre-operative examination- Primary Preoperative examination, unspecified Bilateral carotid artery stenosis Occlusion and stenosis of carotid artery without mention of cerebral infarction Essential hypertension, benign Gastroesophageal reflux disease, unspecified whether esophagitis present 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 loss Iron deficiency anemia secondary to blood loss (chronic) Peripheral edema Edema Raynaud's phenomenon without gangrene Situational anxiety Other anxiety states Thyroid nodule 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 spondylosis without myelopathy Osteoporosis, unspecified osteoporosis type, unspecified pathological fracture presence Cognitive impairment Unspecified persistent mental disorders due to conditions classified elsewhere BPH with urinary obstruction Hypertrophy of prostate with urinary obstruction and other lower urinary tract symptoms (LUTS) Abnormal SPEP Other nonspecific findings on examination of blood Urinary tract infection without hematuria, site unspecified Recurrent UTI Urinary tract infection, site not specified documented in this encounter [facility]* Diagnosis Degenerative lumbar spinal stenosis- Primary Spinal stenosis, lumbar region, without neurogenic claudication Degenerative scoliosis Acute postoperative pain Other acute postoperative pain S/P lumbar spinal fusion Arthrodesis status Sepsis due to Escherichia coli with acute organ dysfunction and septic shock, unspecified type Essential hypertension, benign Urinary tract infection associated with indwelling urethral catheter, sequela Sepsis due to Gram-negative organism with septic shock (HCC) Septicemia due to gram-negative organism, unspecified Acute blood loss anemia Acute posthemorrhagic anemia Spontaneous pneumothorax Other pneumothorax Severe protein-calorie malnutrition (HCC) Other severe protein-calorie malnutrition Acute postoperative respiratory insufficiency Other pulmonary insufficiency, not elsewhere classified, following trauma and surgery Delirium Other alteration of consciousness Hemodynamic instability Other symptoms involving cardiovascular system Oropharyngeal dysphagia Dysphagia, oropharyngeal phase Thrombocytopenia Thrombocytopenia, unspecified Delirium Other alteration of consciousness Hypomagnesemia Disorders of magnesium metabolism Hypophosphataemia Sepsis due to Escherichia coli (E. coli) (HCC) Septicemia due to Escherichia coli (E. coli) Sepsis due to Gram-negative organism with septic shock (HCC) Septicemia due to gram-negative organism, unspecified Acute postoperative respiratory insufficiency Other pulmonary insufficiency, not elsewhere classified, following trauma and surgery BRITTANY (acute kidney injury) Acute kidney failure, unspecified Pre-operative examination- Primary Preoperative examination, unspecified Degenerative scoliosis Episodic cluster headache, 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 Essential hypertension, benign BPH with urinary obstruction Hypertrophy of prostate with urinary obstruction and other lower urinary tract symptoms (LUTS) Raynaud's phenomenon without gangrene Compression fracture of L3 vertebra, sequela Osteoporosis, unspecified osteoporosis type, unspecified pathological fracture presence Chronic constipation Unspecified constipation Benign intracranial hypertension Situational anxiety Other anxiety states Thyroid nodule Nontoxic uninodular goiter Bilateral carotid artery stenosis Occlusion and stenosis of carotid artery without mention of cerebral infarction Pre-operative examination- Primary Preoperative examination, unspecified Nephrolithiasis Calculus of kidney Benign intracranial hypertension Episodic cluster headache, 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 Essential hypertension, benign Oropharyngeal dysphagia Dysphagia, oropharyngeal phase Gastroesophageal reflux disease, unspecified whether esophagitis present BPH with urinary obstruction Hypertrophy of prostate with urinary obstruction and other lower urinary tract symptoms (LUTS) Urinary tract infection associated with indwelling urethral catheter, sequela Nontoxic single thyroid nodule Nontoxic uninodular goiter Acute blood loss anemia Acute posthemorrhagic anemia Raynaud's phenomenon without gangrene Compression fracture of L3 vertebra, sequela Osteoporosis, unspecified osteoporosis type, unspecified pathological fracture presence Degenerative scoliosis Situational anxiety Other anxiety states Bilateral carotid artery stenosis Occlusion and stenosis of carotid artery without mention of cerebral infarction Pre-operative examination- Primary Preoperative examination, unspecified Essential hypertension, benign Gastroesophageal reflux disease, unspecified whether esophagitis present Hiatal hernia Diaphragmatic hernia without mention of obstruction or gangrene Osteoporosis, unspecified osteoporosis type, unspecified pathological fracture presence Peripheral edema Edema Raynaud's phenomenon without gangrene Situational anxiety Other anxiety states 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 spondylosis without myelopathy Bilateral carotid artery stenosis Occlusion and stenosis of carotid artery without mention of cerebral infarction BPH with urinary obstruction Hypertrophy of prostate with urinary obstruction and other lower urinary tract symptoms (LUTS) Thyroid nodule Nontoxic uninodular goiter Pre-operative examination- Primary Preoperative examination, unspecified Bilateral carotid artery stenosis Occlusion and stenosis of carotid artery without mention of cerebral infarction Essential hypertension, benign Gastroesophageal reflux disease, unspecified whether esophagitis present 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 loss Iron deficiency anemia secondary to blood loss (chronic) Peripheral edema Edema Raynaud's phenomenon without gangrene Situational anxiety Other anxiety states Thyroid nodule 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 spondylosis without myelopathy Osteoporosis, unspecified osteoporosis type, unspecified pathological fracture presence Cognitive impairment Unspecified persistent mental disorders due to conditions classified elsewhere BPH with urinary obstruction Hypertrophy of prostate with urinary obstruction and other lower urinary tract symptoms (LUTS) Abnormal SPEP Other nonspecific findings on examination of blood Urinary tract infection without hematuria, site unspecified Other secondary kyphosis, thoracic region- Primary Scoliosis of lumbar spine, unspecified scoliosis type [facility] Diagnosis Degenerative lumbar spinal stenosis- Primary Spinal stenosis, lumbar region, without neurogenic claudication Degenerative scoliosis Acute postoperative pain Other acute postoperative pain S/P lumbar spinal fusion Arthrodesis status Sepsis due to Escherichia coli with acute organ dysfunction and septic shock, unspecified type Essential hypertension, benign Urinary tract infection associated with indwelling urethral catheter, sequela Sepsis due to Gram-negative organism with septic shock (HCC) Septicemia due to gram-negative organism, unspecified Acute blood loss anemia Acute posthemorrhagic anemia Spontaneous pneumothorax Other pneumothorax Severe protein-calorie malnutrition (HCC) Other severe protein-calorie malnutrition Acute postoperative respiratory insufficiency Other pulmonary insufficiency, not elsewhere classified, following trauma and surgery Delirium Other alteration of consciousness Hemodynamic instability Other symptoms involving cardiovascular system Oropharyngeal dysphagia Dysphagia, oropharyngeal phase Thrombocytopenia Thrombocytopenia, unspecified Delirium Other alteration of consciousness Hypomagnesemia Disorders of magnesium metabolism Hypophosphataemia Sepsis due to Escherichia coli (E. coli) (HCC) Septicemia due to Escherichia coli (E. coli) Sepsis due to Gram-negative organism with septic shock (HCC) Septicemia due to gram-negative organism, unspecified Acute postoperative respiratory insufficiency Other pulmonary insufficiency, not elsewhere classified, following trauma and surgery BRITTANY (acute kidney injury) Acute kidney failure, unspecified Pre-operative examination- Primary Preoperative examination, unspecified Degenerative scoliosis Episodic cluster headache, 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 Essential hypertension, benign BPH with urinary obstruction Hypertrophy of prostate with urinary obstruction and other lower urinary tract symptoms (LUTS) Raynaud's phenomenon without gangrene Compression fracture of L3 vertebra, sequela Osteoporosis, unspecified osteoporosis type, unspecified pathological fracture presence Chronic constipation Unspecified constipation Benign intracranial hypertension Situational anxiety Other anxiety states Thyroid nodule Nontoxic uninodular goiter Bilateral carotid artery stenosis Occlusion and stenosis of carotid artery without mention of cerebral infarction Pre-operative examination- Primary Preoperative examination, unspecified Nephrolithiasis Calculus of kidney Benign intracranial hypertension Episodic cluster headache, 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 Essential hypertension, benign Oropharyngeal dysphagia Dysphagia, oropharyngeal phase Gastroesophageal reflux disease, unspecified whether esophagitis present BPH with urinary obstruction Hypertrophy of prostate with urinary obstruction and other lower urinary tract symptoms (LUTS) Urinary tract infection associated with indwelling urethral catheter, sequela Nontoxic single thyroid nodule Nontoxic uninodular goiter Acute blood loss anemia Acute posthemorrhagic anemia Raynaud's phenomenon without gangrene Compression fracture of L3 vertebra, sequela Osteoporosis, unspecified osteoporosis type, unspecified pathological fracture presence Degenerative scoliosis Situational anxiety Other anxiety states Bilateral carotid artery stenosis Occlusion and stenosis of carotid artery without mention of cerebral infarction Pre-operative examination- Primary Preoperative examination, unspecified Essential hypertension, benign Gastroesophageal reflux disease, unspecified whether esophagitis present Hiatal hernia Diaphragmatic hernia without mention of obstruction or gangrene Osteoporosis, unspecified osteoporosis type, unspecified pathological fracture presence Peripheral edema Edema Raynaud's phenomenon without gangrene Situational anxiety Other anxiety states 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 spondylosis without myelopathy Bilateral carotid artery stenosis Occlusion and stenosis of carotid artery without mention of cerebral infarction BPH with urinary obstruction Hypertrophy of prostate with urinary obstruction and other lower urinary tract symptoms (LUTS) Thyroid nodule Nontoxic uninodular goiter Pre-operative examination- Primary Preoperative examination, unspecified Bilateral carotid artery stenosis Occlusion and stenosis of carotid artery without mention of cerebral infarction Essential hypertension, benign Gastroesophageal reflux disease, unspecified whether esophagitis present 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 loss Iron deficiency anemia secondary to blood loss (chronic) Peripheral edema Edema Raynaud's phenomenon without gangrene Situational anxiety Other anxiety states Thyroid nodule 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 spondylosis without myelopathy Osteoporosis, unspecified osteoporosis type, unspecified pathological fracture presence Cognitive impairment Unspecified persistent mental disorders due to conditions classified elsewhere BPH with urinary obstruction Hypertrophy of prostate with urinary obstruction and other lower urinary tract symptoms (LUTS) Abnormal SPEP Other nonspecific findings on examination of blood Urinary tract infection without hematuria, site unspecified Other secondary kyphosis, thoracic region [facility] Diagnosis Degenerative lumbar spinal stenosis- Primary Spinal stenosis, lumbar region, without neurogenic claudication Degenerative scoliosis Acute postoperative pain Other acute postoperative pain S/P lumbar spinal fusion Arthrodesis status Sepsis due to Escherichia coli with acute organ dysfunction and septic shock, unspecified type Essential hypertension, benign Urinary tract infection associated with indwelling urethral catheter, sequela Sepsis due to Gram-negative organism with septic shock (HCC) Septicemia due to gram-negative organism, unspecified Acute blood loss anemia Acute posthemorrhagic anemia Spontaneous pneumothorax Other pneumothorax Severe protein-calorie malnutrition (HCC) Other severe protein-calorie malnutrition Acute postoperative respiratory insufficiency Other pulmonary insufficiency, not elsewhere classified, following trauma and surgery Delirium Other alteration of consciousness Hemodynamic instability Other symptoms involving cardiovascular system Oropharyngeal dysphagia Dysphagia, oropharyngeal phase Thrombocytopenia Thrombocytopenia, unspecified Delirium Other alteration of consciousness Hypomagnesemia Disorders of magnesium metabolism Hypophosphataemia Sepsis due to Escherichia coli (E. coli) (HCC) Septicemia due to Escherichia coli (E. coli) Sepsis due to Gram-negative organism with septic shock ([facility]) Septicemia due to gram-negative organism, unspecified Acute postoperative respiratory insufficiency Other pulmonary insufficiency, not elsewhere classified, following trauma and surgery BRITTANY (acute kidney injury) Acute kidney failure, unspecified Pre-operative examination- Primary Preoperative examination, unspecified Degenerative scoliosis Episodic cluster headache, 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 Essential hypertension, benign BPH with urinary obstruction Hypertrophy of prostate with urinary obstruction and other lower urinary tract symptoms (LUTS) Raynaud's phenomenon without gangrene Compression fracture of L3 vertebra, sequela Osteoporosis, unspecified osteoporosis type, unspecified pathological fracture presence Chronic constipation Unspecified constipation Benign intracranial hypertension Situational anxiety Other anxiety states Thyroid nodule Nontoxic uninodular goiter Bilateral carotid artery stenosis Occlusion and stenosis of carotid artery without mention of cerebral infarction Pre-operative examination- Primary Preoperative examination, unspecified Nephrolithiasis Calculus of kidney Benign intracranial hypertension Episodic cluster headache, 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 Essential hypertension, benign Oropharyngeal dysphagia Dysphagia, oropharyngeal phase Gastroesophageal reflux disease, unspecified whether esophagitis present BPH with urinary obstruction Hypertrophy of prostate with urinary obstruction and other lower urinary tract symptoms (LUTS) Urinary tract infection associated with indwelling urethral catheter, sequela Nontoxic single thyroid nodule Nontoxic uninodular goiter Acute blood loss anemia Acute posthemorrhagic anemia Raynaud's phenomenon without gangrene Compression fracture of L3 vertebra, sequela Osteoporosis, unspecified osteoporosis type, unspecified pathological fracture presence Degenerative scoliosis Situational anxiety Other anxiety states Bilateral carotid artery stenosis Occlusion and stenosis of carotid artery without mention of cerebral infarction Pre-operative examination- Primary Preoperative examination, unspecified Essential hypertension, benign Gastroesophageal reflux disease, unspecified whether esophagitis present Hiatal hernia Diaphragmatic hernia without mention of obstruction or gangrene Osteoporosis, unspecified osteoporosis type, unspecified pathological fracture presence Peripheral edema Edema Raynaud's phenomenon without gangrene Situational anxiety Other anxiety states 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 spondylosis without myelopathy Bilateral carotid artery stenosis Occlusion and stenosis of carotid artery without mention of cerebral infarction BPH with urinary obstruction Hypertrophy of prostate with urinary obstruction and other lower urinary tract symptoms (LUTS) Thyroid nodule Nontoxic uninodular goiter Pre-operative examination- Primary Preoperative examination, unspecified Bilateral carotid artery stenosis Occlusion and stenosis of carotid artery without mention of cerebral infarction Essential hypertension, benign Gastroesophageal reflux disease, unspecified whether esophagitis present 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 loss Iron deficiency anemia secondary to blood loss (chronic) Peripheral edema Edema Raynaud's phenomenon without gangrene Situational anxiety Other anxiety states Thyroid nodule 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 spondylosis without myelopathy Osteoporosis, unspecified osteoporosis type, unspecified pathological fracture presence Cognitive impairment Unspecified persistent mental disorders due to conditions classified elsewhere BPH with urinary obstruction Hypertrophy of prostate with urinary obstruction and other lower urinary tract symptoms (LUTS) Abnormal SPEP Other nonspecific findings on examination of blood Urinary tract infection without hematuria, site unspecified Other secondary kyphosis, thoracic region- Primary Scoliosis of lumbar spine, unspecified scoliosis type Pre-op testing Preoperative examination, unspecified Iron deficiency anemia, unspecified iron deficiency anemia type Dementia without behavioral disturbance (HCC)- Primary Dementia, unspecified, without behavioral disturbance Other secondary kyphosis, thoracic region Scoliosis of lumbar spine, unspecified scoliosis type [facility] Degenerative lumbar spinal stenosis- Primary Spinal stenosis, lumbar region, without neurogenic claudication Degenerative scoliosis Acute postoperative pain Other acute postoperative pain S/P lumbar spinal fusion Arthrodesis status Sepsis due to Escherichia coli with acute organ dysfunction and septic shock, unspecified type Essential hypertension, benign Urinary tract infection associated with indwelling urethral catheter, sequela Sepsis due to Gram-negative organism with septic shock (HCC) Septicemia due to gram-negative organism, unspecified Acute blood loss anemia Acute posthemorrhagic anemia Spontaneous pneumothorax Other pneumothorax Severe protein-calorie malnutrition (HCC) Other severe protein-calorie malnutrition Acute postoperative respiratory insufficiency Other pulmonary insufficiency, not elsewhere classified, following trauma and surgery Delirium Other alteration of consciousness Hemodynamic instability Other symptoms involving cardiovascular system Oropharyngeal dysphagia Dysphagia, oropharyngeal phase Thrombocytopenia Thrombocytopenia, unspecified Delirium Other alteration of consciousness Hypomagnesemia Disorders of magnesium metabolism Hypophosphataemia Sepsis due to Escherichia coli (E. coli) (HCC) Septicemia due to Escherichia coli (E. coli) Sepsis due to Gram-negative organism with septic shock (HCC) Septicemia due to gram-negative organism, unspecified Acute postoperative respiratory insufficiency Other pulmonary insufficiency, not elsewhere classified, following trauma and surgery BRITTANY (acute kidney injury) Acute kidney failure, unspecified Pre-operative examination- Primary Preoperative examination, unspecified Degenerative scoliosis Episodic cluster headache, 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 Essential hypertension, benign BPH with urinary obstruction Hypertrophy of prostate with urinary obstruction and other lower urinary tract symptoms (LUTS) Raynaud's phenomenon without gangrene Compression fracture of L3 vertebra, sequela Osteoporosis, unspecified osteoporosis type, unspecified pathological fracture presence Chronic constipation Unspecified constipation Benign intracranial hypertension Situational anxiety Other anxiety states Thyroid nodule Nontoxic uninodular goiter Bilateral carotid artery stenosis Occlusion and stenosis of carotid artery without mention of cerebral infarction Pre-operative examination- Primary Preoperative examination, unspecified Nephrolithiasis Calculus of kidney Benign intracranial hypertension Episodic cluster headache, 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 Essential hypertension, benign Oropharyngeal dysphagia Dysphagia, oropharyngeal phase Gastroesophageal reflux disease, unspecified whether esophagitis present BPH with urinary obstruction Hypertrophy of prostate with urinary obstruction and other lower urinary tract symptoms (LUTS) Urinary tract infection associated with indwelling urethral catheter, sequela Nontoxic single thyroid nodule Nontoxic uninodular goiter Acute blood loss anemia Acute posthemorrhagic anemia Raynaud's phenomenon without gangrene Compression fracture of L3 vertebra, sequela Osteoporosis, unspecified osteoporosis type, unspecified pathological fracture presence Degenerative scoliosis Situational anxiety Other anxiety states Bilateral carotid artery stenosis Occlusion and stenosis of carotid artery without mention of cerebral infarction Pre-operative examination- Primary Preoperative examination, unspecified Essential hypertension, benign Gastroesophageal reflux disease, unspecified whether esophagitis present Hiatal hernia Diaphragmatic hernia without mention of obstruction or gangrene Osteoporosis, unspecified osteoporosis type, unspecified pathological fracture presence Peripheral edema Edema Raynaud's phenomenon without gangrene Situational anxiety Other anxiety states 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 spondylosis without myelopathy Bilateral carotid artery stenosis Occlusion and stenosis of carotid artery without mention of cerebral infarction BPH with urinary obstruction Hypertrophy of prostate with urinary obstruction and other lower urinary tract symptoms (LUTS) Thyroid nodule Nontoxic uninodular goiter Pre-operative examination- Primary Preoperative examination, unspecified Bilateral carotid artery stenosis Occlusion and stenosis of carotid artery without mention of cerebral infarction Essential hypertension, benign Gastroesophageal reflux disease, unspecified whether esophagitis present 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 loss Iron deficiency anemia secondary to blood loss (chronic) Peripheral edema Edema Raynaud's phenomenon without gangrene Situational anxiety Other anxiety states Thyroid nodule 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 spondylosis without myelopathy Osteoporosis, unspecified osteoporosis type, unspecified pathological fracture presence Cognitive impairment Unspecified persistent mental disorders due to conditions classified elsewhere BPH with urinary obstruction Hypertrophy of prostate with urinary obstruction and other lower urinary tract symptoms (LUTS) Abnormal SPEP Other nonspecific findings on examination of blood Urinary tract infection without hematuria, site unspecified Dementia without behavioral disturbance (HCC)- Primary Dementia, unspecified, without behavioral disturbance Other secondary kyphosis, thoracic region Scoliosis of lumbar spine, unspecified scoliosis type [facility] Author Keyana Aldana [facility] Note Date/Time January 08, 2025 7:2 7pm [facility] Medical Records Department [address] [place] [address] H&P Exam - Hospitalist 01/08/25 1851 MR#: [id number] Acct: [id number] Name: JAVIER BOND Rep #:[id number] : 1940 84 From: Keyana Aldana MD PCP: Dr. Francisco Bahena MD Status:REG ER Location: ED HPI - General General Date of Admission: 01/08/25 Date of Service: 01/08/25 Chief Complaint: Weakness, debility. 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 He has chronic low back pain and notes that is unchanged since his prior fusion 4 years prior. He denies any recent illnesses. He does state that he chronically has some sciatic discomfort down his right lower extremity and mild weakness but this is similar to previous and unchanged. He denies any change inbowel or bladder function nor any saddle anesthesia or paresthesia. Workup in the ED included T97.9, heart rate 57, BP 116/70, respiratory rate 18, 100% on room air with most recent repeat vitals heart rate 55, BP 138/78, respiratory rate 17, 99% on room air, CBC with WBC 3.0, hemoglobin 0.7, MCV 98.9, platelet 146 with lymphopenia, BMP with BUN/creatinine 20/0.88, GFR 86, initial troponin 23, repeat delta 23 and 4-hour 26, urine cloudy, specifically 1.010, protein 15,occult blood 25, leukocyte Estrace 500 with urine RBCs 5-10, urine WBCs 50-100 with 3+ urine bacteria, MRI of the lumbar spine with postsurgical changes, dextroscoliosis, degenerative disc disease, plain film of the lumbar spine with status post laminectomy and fusion at L3-L4, L4-L5 and L5-S1 levels with prosthetic disc placement, dextroconvex scoliosis. From review of previous records 09/10/2023 patient did have an E. coli urinary tract infection with associated bacteremia at that time currently sensitive to Rocephin, only agent and was resistant to was ampicillin, and sensitive to Unasyn at that time. In the ED patient administered Rocephin 1 g IV x 1. PFSH Medical History Anxiety and depression HLD (hyperlipidemia) CKD (chronic kidney disease), stage II Dementia Left inguinal hernia Groin pain Inguinal hernia bilateral, non-recurrent Right inguinal hernia History of kidney stones History of hiatal hernia Abdominal pain BPH (benign prostatic hyperplasia) Arthritis History of back problems Hypertension Medical History no medical history Home Medications ?Medication ?Instructions ?Recorded ?Last Taken ?Type acetaminophen 500 mg tablet 1,000 mg PO PRN Pain 04/03 Unknown History hydrochlorothiazide 12.5 mg capsule 12.5 mg PO DAILY d iuretic 04/03/17 01/07/25 History doxycycline hyclate 20 mg tablet 20 mg PO BID infectio n 03/13/19 01/07/25 History metronidazole 0.75 % topical cream 1 applic topical DA [facility] skin health 07/16/19 01/07/25 History aspirin 81 mg tablet,delayed 81 mg PO QHS heart health 01/28/21 01/07/25 History release (Rika Low Dose Aspirin) multivitamin 1 tab PO DAILY vitamin 05/1801/07/25 History pantoprazole 40 mg tablet,delayed 40 mg PO DAILY reflu x 05/03/22 01/07/25 History release d-mannose 1 ea PO DAILY 09/24/2301/07 History dupilumab 300 mg/2 mL subcutaneous 300 mg subcut .COMP [facility] skin health 09/24/23 Unknown History pen injector (Dupixent) lisinopril 5 mg tablet 5 mg PO DAILY blood pressure 09/24/23 Unknown History Held on 01/08/25. Instructions: MD Ordered BACLOFEN SUPPOSITORY 1 supp OTHER DAILY CONSITPAT ION 01/08/25 Unknown History Lactobacillus acidophilus 10 80 mmu cells PO DAILY 01/07/25 History billion cell capsule (NewFlora) donepezil 5 mg tablet 10 mg PO DAILY 01/08/2512/25 History furosemide 20 mg tablet 20 mg PO DAILY 01/08/2512/25 History guaifenesin 600 mg tablet, 600 mg PO BID 01/08/2512/25 History extended release 12 hr (Mucinex) melatonin 5 mg tablet 5 mg PO QHS 01/08/25 5 History memantine 10 mg tablet 10 mg PO BID 01/08/25 History methenamine hippurate 1 gram tablet 1 g PO BID 5 01/07/25 History plecanatide 3 mg tablet (Trulance) 3 mg PO DAILY 01/08 Unknown History Held on 01/08/25. Instructions: MD Ordered polyethylene glycol 3350 17 17 g PO DAILY 01/08/25 History gram/dose oral powder (ClearLax) sertraline 25 mg tablet 25 mg PO DAILY 01/08/2512/25 History trazodone 100 mg tablet 100 mg PO QHS 01/08/2501/07 History triamcinolone acetonide topical DAILY PRN itching 01/07/25 History Allergy/AdvReac Type Severity Reaction Status Date / Time Iodinated Contrast Media Allergy Hives Verified 01/08/25 10:39 (CONTRASTS) azelaic acid (From Finacea) AdvReac Rash Verified 01/08/25 10:39 levofloxacin AdvReac Rash Verified 01/08/25 10:39 meloxicam (From Mobic) AdvReac Nausea Verified 01/08/25 10:39 misoprostol (From Cytotec) AdvReac Nausea Verified 01/08/25 10:39 nabumetone (From Relafen) AdvReac Nausea Verified 01/08/25 10:39 NSAIDS (Non-Steroidal AdvReac Nausea Verified 01/08/25 10:39 Anti-Inflamma sulfamethoxazole (From AdvReac Nausea Verified 01/08/25 10:39 Bactrim) terbinafine AdvReac Nausea Verified 01/08/25 10:39 trimethoprim (From Bactrim) AdvReac Nausea Verified 01/08/25 10:39 valdecoxib (From Bextra) AdvReac Other Verified 01/08/25 10:39 Family History Father Colon cancer Mother Cancer lung Hypertension Brother Cancer Family History no significant family his Surgical History History of left inguinal hernia repair (~07/18/19) History of right inguinal hernia repair History of colonoscopy (~02/2019) history repair left thumb History of hemorrhoidectomy History of bilateral cataract extraction history ureteral stent insertion History of laparoscopic cholecystectomy history lap hiatal hernia repair Hx of repair of right rotator cuff Hx of repair of left rotator cuff history exacorporeal shock wave lithrotripsy Surgical History no surgical history Social History household members: spouse Smoking Status: Never smoker alcohol intake: current alcohol intake frequency: a few times a month substance use type: does not use ROS ROS Narrative Admission Review of Systems: CONSTITUTIONAL: No weight loss, fever, chills, + weakness or fatigue. HEENT: Eyes: No visual loss, blurred vision, double vision or yellow sclerae. Ears, Nose, Throat: No hearing loss, sneezing, congestion, runny nose or sore throat. SKIN: No rash or itching, lesions, wounds. CARDIOVASCULAR: No chest pain, chest pressure or chest discomfort, palpitations,edema, orthopnea, syncopal events. RESPIRATORY: No shortness of breath, cough or sputum, wheezing, hemoptysis. GASTROINTESTINAL: No anorexia, nausea, vomiting or diarrhea, abdominal pain, melena, BRBPR. GENITOURINARY: + Increased frequency, history of retention. No dysuria, urgency. NEUROLOGICAL: + Generalized weakness. No headache, dizziness, syncope, paralysis, ataxia, numbness or tingling in the extremities, focal weakness, change in bowel or bladder control, seizure. MUSCULOSKELETAL: + muscle, back pain, joint pain or stiffness. HEMATOLOGIC: + Chronic anemia, easy bleeding/bruising. LYMPHATICS: No enlarged nodes. No history of splenectomy. PSYCHIATRIC: + History of anxiety and depression. ENDOCRINOLOGIC: No reports of sweating, cold or heat intolerance. No polyuria orpolydipsia. ALLERGIES: + History of hives. Vital Signs Vital Signs Vital Signs: 01/08/25 10:35 01/08/25 12:34 01/08/25 14:00 Temperature 97.9 F Temperature Source Oral Pulse Rate 57 L 54 L 54 L Respiratory Rate 18 15 15 Blood Pressure 116/70 124/59 H 116/62 Blood Pressure Mean 85 80 80 Pulse Ox 100 100 100 Oxygen Delivery Method Room Air Room Air Room Air 01/08/25 18:00 Temperature Temperature Source Pulse Rate 55 L Respiratory Rate 17 Blood Pressure 138/78 H Blood Pressure Mean 98 Pulse Ox 99 Oxygen Delivery Method Room Air Weight Weight: 162 lb 1.6 oz Body Mass Index (BMI) 22.6 Physical Exam Narrative Physical Examination: General: Awake, alert, oriented to self, place and recent events, does have underlying dementia of unclear extent, remains cooperative, seated upright in the ED bed, fatigued, in no apparent distress. Skin: Normal color, normal turgor, no icterus, no cyanosis except occasional stage ecchymoses, abrasion with HEENT: AT/NC, EOMI, PERRLA, mildly dry MM, no carotid bruits or JVD noted. Lungs: Mildly dry, decreased bases, appropriate, no rales, ronchi or wheezing. Heart: Regular rate and rhythm; no gallop, rub audible. Abdomen: Soft, mild discomfort to suprapubic palpation but not severe, otherwiseabdomen NTTP, ND, mildly hyperactive l BS, no appreciated HSM. Extremities: No cyanosis, clubbing, or edema. Neurological: Patient awake, alert, oriented as noted, cognitive function decreased baseline with underlying dementia, appears baseline intact; pupils equally reactive to light and accommodation, cranial nerves grossly normal, moving all 4 extremities, no focal deficits, strength severely globally decreased Psychiatric: Affect appears fatigued otherwise normal, no acute evidence of depressive or anxiety feelings but does have underlying history. Results Lab / Micro Data 01/08/25 11:49 01/08/25 11:49 Labs: Laboratory Results - last 24 hr 01/08/25 11:49: WBC 3.0 L, RBC 3.58 L, Hgb 11.7 L, Hct 35.4 L, MCV 98.9 H, MCH 32.7 H, MCHC 33.1, RDW Std Deviation 49.3 H, RDW Coeff of Ezequiel 13.4, Plt Count 146 L, MPV 9.0, Immature Gran % (Auto) 0.300, Neut % (Auto) 66.8, Lymph % (Auto)22.9, [place] % (Auto) 8.6, Eos % (Auto) 0.7, Baso % (Auto) 0.7, Absolute Neuts (auto) 2.0, Absolute Lymphs (auto) 0.69 L, Nucleated RBC % 0, Sodium 138, Potassium 4.1, Chloride 103, Carbon Dioxide 26.8, Anion Gap 8, BUN 20 H, Creatinine 0.88, Estim Creat Clear Calc 67.31, Est GFR (MDRD) Non-Af 86, BUN/Creatinine Ratio 23.2 H, Glucose 98, Calcium 9.1, Troponin T High Sens 23 H 01/08/25 12:54: Urine Color Yellow, Urine Clarity Sl. Cloudy, Urine pH 7.0, Ur Specific [place] 1.010, Urine Protein 15 H, Urine Glucose (UA) Normal, Urine Ketones Negative, Urine Occult Blood 25 H, Urine Nitrite Negative, Urine Bilirubin Negative, Urine Urobilinogen Normal, Ur Leukocyte Esterase 500 H, Urine RBC 5-10 SEEN, Urine WBC 50-100 SEEN, Ur Squamous Epith Cells 0-5 SEEN, Urine Bacteria 3+, Urine Mucus 0 SEEN 01/08/25 13:54: Troponin T Hi Sens 2 Hr 23 H 01/08/25 15:45: Troponin T Hi Sens 4Hr 26 H Rhythm Strip Rhythm Strip: Sinus Rhythm Rate: 57 Ectopy: None Imaging Radiology Impression Lumbar Spine MRI 01/08/25 10:53 IMPRESSION: Postsurgical changes, dextroscoliosis, and degenerative disc disease as described above. Reading Location: [facility] Lumbar Spine X-Ray 01/08/25 11:50 IMPRESSION: ADVANCED DEGENERATIVE CHANGES OF THE LUMBAR SPINE. Status post laminectomy and fusion at the L3-L4, L4-L5 and L5-S1 levels with prosthetic disc placement. Dextroconvex scoliosis. Reading Location: [facility] Assessment & Plan Assessment/Plan (1) Weakness of both lower extremities: (2) Acute UTI: PLAN: Plan The patient is an 84 y/o M w/ PMHx: BPH with obstructive pathology, HTN, Chronicback pain s/p prior surgical intervention, CKD stage II per previous GFR trending, Chronic macrocytic anemia,, Chronic thrombocytopenia who presents to the [facility] ED on with history of onset significant weakness primarily lower extremities prior to ED arrival at his home while attempting to use his walker with difficulty even supporting himself yelling forhis who came and found him still standing and helped him lowered to the ground without any injury but because he could not even get up EMS was called. #1. Severe weakness, debility, adult Adult FTT, secondary to items noted below in addition to Acute Complicated Urinary Tract Infection complicated by BPH withobstructive pathology, history of intermittent urinary retention's and spinal fusion, history nephrolithiasis, frequent UTIs: Will admit to PCU given mildly indeterminate cardiac enzymes to be cautious, UA upon ED evaluation remarkable, pending UCx, continue IVFs, monitor I/Os, continue IV Rocephin w/ transition as able pending sensitivities and speciation. B PT/OT/case management consulted fordischarge planning. #2. Indeterminate cardiac enzymes, stable, unclear etiology: EKG in ED [], initial trop 23 with repeat delta 23 and most recent 4-hour 26. Will maintain on a monitored bed to assure no acute myocardial infarction with serial cardiac enzymes and repeat EKGs only if necessary. Magnesium level requested. Maintain on aspirin. #3. Chronic macrocytic anemia: Admission CBC with hemoglobin 11.7, MCV 90.9, baseline primarily more recently noted 9-10 range, stable, folic acid and vitamin B12 levels requested, continue to trend. #4. Chronic thrombocytopenia, unclear etiology: Admission platelets 146, previous baseline more recently 113-145, appears consistent, continue to trend. #5. Chronic Kidney Disease Stage II primarily per GFR trend: Admission BUN/Cr 20/0.88, GFR 86, baseline renal function 0.8-1.0 primarily, repeat BMP in AM. #6. BPH with obstructive pathology, history of intermittent urinary retention since his spinal fusion, history of nephrolithiasis, frequent UTIs: Will assure no evidence of any urinary retention especially given UTI as noted, not on any regimen for currently's but clarified to be certain. Patient does follow with [facility] urology. #7. Chronic back pain with chronic right lower extremity radiculopathy: Imaging with no acute findings, lumbar spine and lumbar MRI obtained in the ED, will maintain on fall precautions, PT/OT consulted for discharge planning, will continue patient home regimen but attempted to clarify. #8. Dementia, unclear type with unclear behavioral disturbance history: Will continue patient home memantine and donepezil regimen, unclear exact extent or etiology, complicates presentation, maintain on fall and aspiration precautions, PT/OT/case management consulted for discharge planning. #9. Hypertension: Continue home regimen including Lasix with hold parameters as needed, PRN hydralazine. Holding hydrochlorothiazide as already on Lasix as noted. #10. Hyperlipidemia: From prior records potentially been on statin, currently not listed, clarifying. #11. Anxiety and depression: Will continue patient home sertraline regimen, will cautiously add trazodone but hold for sedation as this may be contributing to weakness. #12. GERD: Will continue patient home PPI. #13. DVT prophylaxis: Lovenox. #14. CODE status: Patient SHAMIR is his who is present and living will is in place. Discussed CODE status at length including difference between FULL code, DNR-CCA and DNR-CC status. Following discussions about the differences in these status, requested Full Code status. Advanced Care Planning Face to Face Time: 16 minutes. Charges/Coding Visit Charges Inpatient E&M: 04694 Init Hosp L3 Procedures Hospitalists Procedures: 05451 Advncd Care Plan 30 Min 01/08/251922 <Electronically signed by Keyana Aldana MD> Cosigner Signature (if applicable): CC: Dr. Keyana Aldana MD; Dr. Francisco Bahena MD~ Signed ADDENDUM by Dr. Keyana Aldana MD on 01/08/25 at 192 Addendum UPDATE: EKG with SR without acute evidence of ischemia. 01/08/251926<Electronically signed by Keyana Aldana MD> Cosigner Signature (if applicable): cc: Dr. Keyana Aldana MD; Dr. Francisco Bahena MD ~* Signed [facility] Work Phone: History and physical note Author Monique Agarwal [facility] Note Date/Time April 12, 2025 5:19 pm [facility] Medical Records Department [address] [place] [address] H&P Exam - Hospitalist 04/12/25 1705 MR#: [id number] Acct: [id number] Name: JAVIER BOND Rep #:[id number] : 1940 84 From: Monique Agarwal MD PCP: Dr. Francisco Bahena MD Status:ADM IN Location: [facility] [id number] HPI - General General Date of Admission: 04/12/25 Date of Service: 04/12/25 Chief Complaint: Weakness and falls HPI Narrative JAVIER BOND, is a 84-year-old male history of BPH, GERD, dementia, hypertension, anxiety and depression who presented [facility] ED04/12/2025 with weakness and failure to thrive. He has had increased weakness for several weeks with 3 falls in the last 2 months. He saw his back surgeon who did his spinal fusion a month ago and was told he needs to undergo another surgery for April but he is not yet sure if he wants to undergo another surgery. Due to his weakness and failure to thrive he is concerned he needs alf placement and his primary care physician advised to go to the ED for admission for placement. In the ED temp 98.2, heart rate 64 blood pressure 145/43. Respiratory rate 16 with pulse ox 100% on room air. CBC with white blood cell count 4.5 and hemoglobin 13.1. BMP with no acute electrolyte abnormalities and a creatinine of 0.82. UA with 500 leuk esterase, 25-50 white blood cells and 3+ bacteria. Chest x-ray no acute process. Patient given Rocephin. Hospitalist contacted for admission for possible placement. Patient evaluated at bedside with family member present. He endorses chronic back pain for years with history of previous spinal fusion and notes that he has decreasedsensation and weakness in both of his legs right greater than left, he said he will attempt to take a step and will not be able to feel where he is stepping with his right leg and this is caused several falls. Confirmed multiple times with patient and family member that patient has had the symptoms at this currentseverity when he saw his spinal surgeon a month ago and that plan was for spinalfusion in April. Patient has chronic constipation, does not necessarily reportchanges in urination acutely but does have chronic history of urinary tract infections. Denies any nausea or vomiting, has chronic nasal drainage that caused him to frequently have to spit out phlegm but denies any acute change. Again patient confirmed that the sensation changes and weakness at this severityhave been present since he saw his spinal surgeon and he is scheduled for surgery but he does not feel like he can care for self at home anymore [facility] Medical History History of ESBL E. coli infection Anxiety Depression Kidney stones Kidney disease Former smoker Anxiety and depression HLD (hyperlipidemia) CKD (chronic kidney disease), stage II Dementia Left inguinal hernia Groin pain Inguinal hernia bilateral, non-recurrent Right inguinal hernia History of kidney stones History of hiatal hernia Abdominal pain BPH (benign prostatic hyperplasia) Arthritis History of back problems Hypertension Home Medications ?Medication ?Instructions ?Recorded ?Last Taken ?Type acetaminophen 500 mg tablet 1,000 mg PO PRN Pain 04/03 Unknown History doxycycline hyclate 20 mg tablet 20 mg PO BID infectio n 03/13/19 01/07/25 History metronidazole 0.75 % topical cream 1 applic topical DA [facility] skin health 07/16/19 01/07/25 History aspirin 81 mg tablet,delayed 81 mg PO QHS heart health 01/28/21 01/07/25 History release (Rika Low Dose Aspirin) multivitamin 1 tab PO DAILY vitamin 05/1801/07/25 History pantoprazole 40 mg tablet,delayed 40 mg PO DAILY reflu x 05/03/22 01/07/25 History release d-mannose 1 ea PO DAILY 09/24/2301/07 History dupilumab 300 mg/2 mL subcutaneous 300 mg subcut .COMP LUIS skin health 09/24/23 Unknown History pen injector (Dupixent) lisinopril 5 mg tablet 5 mg PO DAILY blood pressure 09/24/23 Unknown History Held on 04/12/25. Instructions: Ordered BACLOFEN SUPPOSITORY 1 supp OTHER DAILY CONSITPAT ION 01/08/25 Unknown History Lactobacillus acidophilus 10 80 mmu cells PO DAILY 01/07/25 History billion cell capsule (NewFlora) donepezil 5 mg tablet 10 mg PO DAILY 01/08/2512/25 History furosemide 20 mg tablet 20 mg PO DAILY 01/08/2512/25 History guaifenesin 600 mg tablet, 600 mg PO BID 01/08/2512/25 History extended release 12 hr (Mucinex) melatonin 5 mg tablet 5 mg PO QHS 01/08/25 5 History memantine 10 mg tablet 10 mg PO BID 01/08/25 History methenamine hippurate 1 gram tablet 1 g PO BID 5 01/07/25 History plecanatide 3 mg tablet (Trulance) 3 mg PO DAILY 01/08 Unknown History Held on 01/29/25. Instructions: reports being on hold 12/13/2024 sertraline 25 mg tablet 25 mg PO DINNER 01/08/25 History trazodone 100 mg tablet 100 mg PO QHS 01/08/2501/07 History triamcinolone acetonide 1 applic topical DAILY PRN i tching 01/08/25 01/07/25 History fosfomycin tromethamine 3 gram 1 packet PO QODAY 3 dos es #1 ea 01/10/25 Unknown Rx oral packet hydrochlorothiazide 12.5 mg tablet 12.5 mg PO DAILY Unknown History sulfamethoxazole 800 1 tab PO BID 01/29/25 Unknow n History mg-trimethoprim 160 mg tablet ipratropium bromide 21 mcg (0.03 intranasal 04/12/25 U nknown History %) nasal spray polyethylene glycol 3350 17 4 g PO DAILY 04/12/25 Unkn own History gram/dose oral powder (Miralax) sertraline 25 mg tablet (Zoloft) 25 mg PO LUNCH Unknown History Allergy/AdvReac Type Severity Reaction Status Date / Time Iodinated Contrast Media Allergy Hives Verified 04/12/25 14:35 (CONTRASTS) azelaic acid (From Finacea) AdvReac Rash Verified 04/12/25 14:35 levofloxacin AdvReac Rash Verified 04/12/25 14:35 meloxicam (From Mobic) AdvReac Nausea Verified 04/12/25 14:35 misoprostol (From Cytotec) AdvReac Nausea Verified 04/12/25 14:35 nabumetone (From Relafen) AdvReac Nausea Verified 04/12/25 14:35 NSAIDS (Non-Steroidal AdvReac Nausea Verified 04/12/25 14:35 Anti-Inflamma sulfamethoxazole (From AdvReac Nausea Verified 04/12/25 14:35 Bactrim) terbinafine AdvReac Nausea Verified 04/12/25 14:35 trimethoprim (From Bactrim) AdvReac Nausea Verified 04/12/25 14:35 valdecoxib (From Bextra) AdvReac Other Verified 04/12/25 14:35 Family History Father Colon cancer Mother Cancer lung Hypertension Brother Cancer Surgical History History of cholecystectomy History of left inguinal hernia repair (~07/18/19) History of right inguinal hernia repair History of colonoscopy (~02/2019) history repair left thumb History of hemorrhoidectomy History of bilateral cataract extraction history ureteral stent insertion History of laparoscopic cholecystectomy history lap hiatal hernia repair Hx of repair of right rotator cuff Hx of repair of left rotator cuff history exacorporeal shock wave lithrotripsy Social History household members: spouse Smoking Status: Former smoker alcohol intake: current alcohol intake frequency: a few times a month substance use type: does not use ROS ROS Narrative General: Denies fever/chills HENT: Denies headache, chronic nasal congestion, denies sore throat EYES: Has glasses Resp: Denies cough, denies shortness of breath Cardiac: Denies chest pain GI: Denies abdominal pain, chronic constipation, denies nausea/vomiting : Does not necessarily note any acute changes in urination Extremity: Denies swelling MSK: Weakness right lower extremity greater than left Neuro: Decreased sensation right lower extremity compared to left Heme: Denies any bleeding or bruising Skin: Denies rashes Psychiatric: No complaints voiced Vital Signs Vital Signs Vital Signs: 04/12/25 14:31 04/12/25 14:53 04/12/25 16:30 Temperature 98.2 F Temperature Source Oral Pulse Rate 64 57 L Respiratory Rate 16 20 H Respiratory Effort Normal Non-Labored Respiratory Pattern Normal Blood Pressure 145/43 H 135/58 H Blood Pressure Mean 77 83 Pulse Ox 100 100 Oxygen Delivery Method Room Air Room Air Weight Weight: 70.8 kg Body Mass Index (BMI) 23.7 Physical Exam Narrative General: Alert, oriented, no apparent distress HEENT: Atraumatic, normocephalic Eyes: Anicteric, normal conjunctiva, extraocular movements grossly intact Neck: Supple Respiratory: Clear to auscultation bilaterally, normal respiratory effort Cardiovascular: Regular rate and rhythm GI: Soft, nontender, nondistended Extremities: No edema Musculoskeletal: Patient moves bilateral lower extremities, left lower extremity5/5 and right lower extremity 4 out of 5, patellar reflexes 1+ bilaterally and no sustained clonus on ankle jerk Neuro: Decreased sensation right greater than left, is able to feel that he is being touched but minimally on the right side which has been going on Skin: No rashes appreciated Psych: Cooperative Results Lab / Micro Data 04/12/25 15:23 04/12/25 15:23 Labs: Laboratory Results - last 24 hr 04/12/25 15:23: WBC 4.5, RBC 4.08 L, Hgb 13.1, Hct 39.7 L, MCV 97.3 H, MCH 32.1 H, MCHC 33.0, RDW Std Deviation 45.0 H, RDW Coeff of Ezequiel 12.6, Plt Count 169, MPV 9.3, Immature Gran % (Auto) 0.200, Neut % (Auto) 54.9, Lymph % (Auto) 33.8, [place] % (Auto) 9.5, Eos % (Auto) 0.9, Baso % (Auto) 0.7, Absolute Neuts (auto) 2.5, Absolute Lymphs (auto) 1.53, Nucleated RBC % 0, Sodium 139, Potassium 4.0, Chloride 102, Carbon Dioxide 26.1, Anion Gap 11, BUN 18, Creatinine 0.82, Estim Creat Clear Calc 67.20, Est GFR (MDRD) Non-Af 88, BUN/Creatinine Ratio 22.1 H, Glucose 100 H, Calcium 9.4, Urine Color Yellow, Urine Clarity Sl. Cloudy, Urine pH 6.5, Ur Specific [place] 1.010, Urine Protein 15 H, Urine Glucose (UA) Normal, Urine Ketones Negative, Urine Occult Blood 25 H, Urine Nitrite Negative,Urine Bilirubin Negative, Urine Urobilinogen Normal, Ur Leukocyte Esterase 500 H, Urine RBC 0-5 SEEN, Urine WBC 25-50 SEEN, Ur Squamous Epith Cells 0 SEEN, Urine Bacteria 3+, Urine Mucus 0 SEEN Imaging Radiology Impression Chest X-Ray 04/12/25 15:30 IMPRESSION: 1. No evidence of acute cardiopulmonary pathology. 2. Small hiatal hernia. Reading Location: [place] [address] Assessment & Plan Assessment/Plan (1) Weakness: (2) UTI (urinary tract infection): PLAN: Plan #Weakness and falls -Patient does not feel he can care for himself at home any longer -Does have UA concerning for UTI, IV antibiotics as below -PT/OT -Case management consult - Will check TSH and B12 in the event there could be any additional factors contributing - Does have history of chronic back pain and spinal fusion and while patient somewhat generally weak does have right lower extremity weakness greater than left lower extremity weakness with decreased sensation more so on the right thanthe left, has already followed and discussed with his spinal surgeon initial plan was for surgery in April but presently he does not think he wants to go through surgery # Abnormal UA -Concern for infection causing or worsening #1 -Will continue empiric antibiotics while awaiting culture and sensitivity data #Hx spinal fusion - Reportedly saw his back surgeon and he may need further intervention to help with his sensation of weakness and this is scheduled for April -Patient unsure if he wants to go through with this at this time -PT/OT -Supportive care as above #Chronic BPH with obstruction -Continue home medications #GERD -Continue PPI #Depression/anxiety -Continue home medications #Hypertension - Continue home antihypertensives #Dementia -Supportive care -Continue home medications #DVT ppx: Lovenox subcu Monique Agarwal MD Charges/Coding Visit Charges Inpatient E&M: 78966 Init Hosp L2 04/12/25 3579 <Electronically signed by Monique Agarwal MD> Cosigner Signature (if applicable): CC: Dr. Francisco Bahena MD; Dr. Monique Agarwal MD~ Signed [facility] Work Phone: Hospital Discharge instructions Additional Instructions Labs COVID and influenza negative. Chest x-ray negative. Blood work White count stable potassium 3.2. Urine with infection. Culture sent. Your CT scan abdomen pelvis negative for obstructive kidney stones. Take antibiotic as prescribed. Follow-up with your doctors. Return if any worsening symptoms.[facility] Work Phone: Hospital Discharge instructions Additional Instructions I prescribed MiraLAX for constipation. You take 2 caps per day until you are in regular bowel movements then go down to 1 cap daily. If your stool becomes too loose you can stop taking it. Continue taking her docusate every day as well. If symptoms worsen and you develop vomiting or increased abdominal pain or not having bowel movements despite medication use come back to the ER. Also of a urinary tract infection so I prescribed antibiotics. Follow-up with your primary care or urologist this week.[facility] Work Phone: Reason for referral (narrative)* Diagnostic Procedure Only (Routine) - Pending Review Specialty Diagnoses / Procedures Referred By Ana Lilia turcios Referred To Contact XR IMAGING Diagnoses Nephrolithiasis Procedures XR ABDOMEN 3V KUB W/OBLIQUES RADIOLOGIC EXAM ABDOMEN 3+ VIEWS Angela Harry PA-C [address] [place] [address] Xr Imaging Referral ID Status Reason Start Date Expiration Date Visits Requested Visits Authorized [id number] Pending Review Auto-Generat ed Referral 01/29/2022 02/28/2023 1 1 * Diagnostic Procedure Only (Routine) - Pending Review Specialty Diagnoses / Procedures Referred By Ana Lilia turcios Referred To Contact US IMAGING Diagnoses Nephrolithiasis Procedures US KIDNEY/BLADDER US RETROPERITONEAL REAL TIME W/IMAGE COMPLETE Angela Harry PA-C [address] [place] [address] Us Imaging Referral ID Status Reason Start Date Expiration Date Visits Requested Visits Authorized [id number] Pending Review Auto-Generat ed Referral 01/29/2022 02/28/2023 1 1 [facility] for referral (narrative)* Outpatient Procedure (Routine) - Authorized Specialty Diagnoses / Procedures Referred By Contac t Referred To Contact [facility] Diagnoses Preoperative testing Procedures SIX MINUTE WALK CARDIOPULMONARY [place] [address] [place] [address] [facility] [address] [place] [address] Referral ID Status Reason Start Date Expiration Date Visits Requested Visits Authorized [id number] Authorized Auto-Generat ed Referral 06/23/2022 07/23/2023 1 1 * Outpatient Procedure (Routine) - Authorized Specialty Diagnoses / Procedures Referred By Contac t Referred To Contact [facility] Diagnoses Preoperative testing Procedures ECG COMPLETE ECG ROUTINE ECG W/LEAST 12 LDS W/I&[place] [address] [place] [address] [facility] [place] [address] [place] [address] Referral ID Status Reason Start Date Expiration Date Visits Requested Visits Authorized [id number] Authorized Auto-Generat ed Referral 06/23/2023 1 1 * Diagnostic Procedure Only (Routine) - Authorized Specialty Diagnoses / Procedures Referred By Contac t Referred To Contact MOLECULAR & FUNCTIONAL IMAGING Diagnoses Preop cardiovascular exam Encounter for other preprocedural examination Procedures NM CARDIAC PERF STRESS/PHARM MYOCARDIAL [place] [address] [place] [address] Molecular [facility] [address] [phone] Referral ID Status Reason Start Date Expiration Date Visits Requested Visits Authorized [id number] Authorized Auto-Generat ed Referral 06/23/2022 07/23/2023 1 1 * Outpatient Procedure (Routine) - Authorized Specialty Diagnoses / Procedures Referred By Contac t Referred To Contact [facility] Diagnoses Preoperative testing Procedures SPIROMETRY BASELINE ONLY SPMTRY W/VC EXPIRATORY PAT W/[place] [address] [place] [id number] [facility] [place] [id number] Referral ID Status Reason Start Date Expiration Date Visits Requested Visits Authorized [id number] Authorized Auto-Generat ed Referral 06/23/2022 07/23/2023 1 1 * Outpatient Procedure (Routine) - Authorized Specialty Diagnoses / Procedures Referred By Contac t Referred To [facility] Diagnoses Preoperative testing Procedures LUNG DIFFUSION CAPACITY (DLCO) [place] [address] [place] [phone] Respiratory [address] [address] Referral ID Status Reason Start Date Expiration Date Visits Requested Visits Authorized [id number] Authorized Auto-Generat ed Referral 06/23/2022 07/23/2023 1 1 * Outpatient Procedure (Routine) - Authorized Specialty Diagnoses / Procedures Referred By Contac t Referred To Contact [facility] [place] Diagnoses Preop cardiovascular exam Procedures ECHO ECHO TTHRC R-T 2D W/WOM-MODE COMPL SPEC&[place] [address] [place] [phone] Heart [facility] Vascular [address] [address] Referral ID Status Reason Start Date Expiration Date Visits Requested Visits Authorized [id number] Authorized Auto-Generat ed Referral 06/23/2022 06/23/2023 1 1 T [facility] for referral (narrative)* Outpatient Procedure (Routine) - Pending Review Specialty Diagnoses / Procedures [facility] To [facility] Diagnoses Pre-operative examination Procedures ECG COMPLETE ECG ROUTINE ECG W/LEAST 12 LDS W/I&R Brandi Messina APRN.TIME [employer]NAL [employer]ER [address] [place] [address] Heart [facility] [place] [address] [place] [address] Referral ID Status Reason Start Date Expiration Date Visits Requested Visits Authorized [id number] Pending Review Auto-Generat ed Referral 07/09/2023 1 1 T [facility] for referral (narrative)* Diagnostic Procedure Only (Routine) - Closed Specialty Diagnoses / Procedures [facility] Referred To Contact MOLEC[facility] & FUNCTIONAL IMAGING Diagnoses Preop cardiovascular exam Encounter for other preprocedural examination Procedures NM CARDIAC PERF STRESS/PHARM MYOCARDIAL [place] [address] [place] [address] Molecular & Functional Imaging [address] [place] [address] Referral ID Status Reason Start Date Expiration Date V isits Requested Visits Authorized [id number] Closed Auto-Generate d Referral 06/23/2022 07/23/2023 1 1 T [facility] for referral (narrative)* Diagnostic Procedure Only (Routine) - Pending Review Specialty Diagnoses / Procedures [facility] Referred To Contact XR IMAGING Diagnoses Dysphagia, unspecified type Procedures XR ESOPHAGRAM RADIOLOGIC EXAM ESOPHAGUS [place] [address] [place] [address] Xr Imaging Referral ID Status Reason Start Date Expiration Date Visits Requested Visits Authorized [id number] Pending Review Auto-Generat ed Referral 09/12/2023 1 1 [facility] for referral (narrative)* Diagnostic Procedure Only (Routine) - Closed Specialty Diagnoses / Procedures Referred By Contac t Referred To Contact XR IMAGING Diagnoses Dysphagia, unspecified type Procedures XR ESOPHAGRAM RADIOLOGIC EXAM ESOPHAGUS [place] [address] [place] [address] Xr Imaging Referral ID Status Reason Start Date Expiration Date V isits Requested Visits Authorized [id number] Closed Auto-Generate d Referral 08/13/2022 09/12/2023 1 1 [facility] for referral (narrative)* Outpatient Procedure (Routine) - Pending Review Specialty Diagnoses / Procedures Referred By Contac t Referred To Contact [facility] Diagnoses BPH with obstruction/lower urinary tract symptoms Procedures FLUROURODYNAMICS WITH EMG EMG STDS ANAL/URTL SPHNCTR OTH/THN NDL Yun Coles MD [address] [place] [place] [phone] [place] [id number] [place] [phone] Referral ID Status Reason Start Date Expiration Date Visits Requested Visits Authorized [id number] Pending Review Auto-Generat ed Referral 11/19/2022 11/19/2023 1 1 [facility] for referral (narrative)* Diagnostic Procedure Only (Routine) - Closed Specialty Diagnoses / Procedures Referred By Contac t Referred To Contact XR IMAGING Diagnoses Cervical spondylosis without myelopathy Procedures XR CERV OTHER 6V AP/LAT/FLX/EXT/OBL RADEX SPINE CERVICAL 6 OR MORE VIEWS Rigoberto Church MD [address] [facility] [address] [place] [address] [place] [address] Referral ID Status Reason Start Date Expiration Date V isits Requested Visits Authorized [id number] Closed Auto-Generate d Referral 06/09/2023 07/08/2024 1 1 * Physical Therapy (Routine) - Pending Review Specialty Diagnoses / Procedures Referred By Contac t Referred To Contact [facility] Diagnoses Cervical spondylosis without myelopathy Procedures CONSULT TO PHYSICAL THERAPY PHYSICAL THERAPY EVALUATION HIGH COMPLEX 45 MINS Rigoberto Church MD [address] [address] [facility] [address] [place] [address] Referral ID Status Reason Start Date Expiration Date Visits Requested Visits Authorized [id number] Pending Review Auto-Generat ed Referral 06/09/2023 06/08/2024 1 1 [facility] for referral (narrative)* Diagnostic Procedure Only (Routine) - Closed Specialty Diagnoses / Procedures Referred By Contac t Referred To Contact XR IMAGING Diagnoses Cervical spondylosis without myelopathy Procedures XR CERV OTHER 6V AP/LAT/FLX/EXT/OBL RADEX SPINE CERVICAL 6 OR MORE VIEWS Rigoberto Church MD [address] [address] [place] [address] Referral ID Status Reason Start Date Expiration Date V isits Requested Visits Authorized [id number] Closed Auto-Generate d Referral 06/09/2023 07/08/2024 1 1 [facility] for referral (narrative)* Diagnostic Procedure Only (Routine) - Closed Specialty Diagnoses / Procedures Referred By Contac t Referred To Contact XR IMAGING Diagnoses Degenerative scoliosis in adult patient Procedures XR SCOLIOSIS PA STAND/LAT 2V RADEX ENTIR THRC LMBR CRV SAC SPI W/SKULL 2/3 VW Elias Landers PA-C [address] [place] [address] [place] [address] Referral ID Status Reason Start Date Expiration Date V isits Requested Visits Authorized [id number] Closed Auto-Generate d Referral 07/16/2022 08/15/2023 1 1 [facility] for referral (narrative)* Diagnostic Procedure Only (Routine) - Closed Specialty Diagnoses / Procedures Referred By Contac t Referred To Contact XR IMAGING Diagnoses S/P lumbar fusion Procedures XR SCOLIOSIS PA STAND/LAT 2V RADEX ENTIR THRC LMBR CRV SAC SPI W/SKULL 2/3 [facility] [address] [place] [address] [place] [address] Referral ID Status Reason Start Date Expiration Date V isits Requested Visits Authorized [id number] Closed Auto-Generate d Referral 03/08/2023 04/06/2024 1 1 [facility] for referral (narrative)* Outpatient Procedure (Routine) - Closed Specialty Diagnoses / Procedures Referred By Contac t Referred To Contact [facility] Diagnoses LLQ pain Procedures COLONOSCOPY DIAGNOSTIC COLONOSCOPY FLX DX W/COLLJ SPEC WHEN PFRMD Aly Guardado MD [address] [place] [address] [facility] [address] [place] [address] Referral ID Status Reason Start Date Expiration Date V isits Requested Visits Authorized [id number] Closed Auto-Generate d Referral 10/13/2023 10/13/2024 1 1 [facility] for referral (narrative)* Diagnostic Procedure Only (Routine) - Authorized Specialty Diagnoses / Procedures Referred By Contac t Referred To Contact XR IMAGING Diagnoses Other secondary kyphosis, thoracic region Procedures XR SCOLIOSIS PA STAND/LAT 2V RADEX ENTIR THRC LMBR CRV SAC SPI W/SKULL 2/3 VW Aris Baeza MD [address] [address] [place] [address] Referral ID Status Reason Start Date Expiration Date Visits Requested Visits Authorized [id number] Authorized Auto-Generat ed Referral 03/13/2025 04/12/2025 1 1 * Diagnostic Procedure Only (Routine) - Closed Specialty Diagnoses / Procedures Referred By Contac t Referred To Contact XR IMAGING Diagnoses Scoliosis of lumbar spine, unspecified scoliosis type Procedures XR SCOLIOSIS PA STAND/LAT 2V RADEX ENTIR THRC LMBR CRV SAC SPI W/SKULL 2/3 Naz Stewart PA-C [address] [place] [address] [place] [address] Referral ID Status Reason Start Date Expiration Date V isits Requested Visits Authorized [id number] Closed Auto-Generate d Referral 03/12/2024 04/11/2025 1 1 [facility] for referral (narrative)* Diagnostic Procedure Only (Routine) - Closed Specialty Diagnoses / Procedures Referred By Contac t Referred To Contact XR IMAGING Diagnoses Scoliosis of lumbar spine, unspecified scoliosis type Procedures XR SCOLIOSIS PA STAND/LAT 2V RADEX ENTIR THRC LMBR CRV SAC SPI W/SKULL 2/3 Naz Alvarez PA-C [address] [place] [address] [place] [address] Referral ID Status Reason Start Date Expiration Date V isits Requested Visits Authorized [id number] Closed Auto-Generate d Referral 03/12/2024 04/11/2025 1 1 [facility] for referral (narrative)* Diagnostic Procedure Only (Routine) - Closed Specialty Diagnoses / Procedures Referred By Contac t Referred To Contact XR IMAGING Diagnoses Pain in both hands Procedures XR HAND GENERAL 3V PA/LAT/OBL BILATERAL RADEX HAND MINIMUM 3 VIEWS Francisco Bahena MD [address] [place] [address] Xr Imaging [facility] Referral ID Status Reason Start Date Expiration Date V isits Requested Visits Authorized [id number] Closed Auto-Generate d Referral 06/15/2024 07/15/2025 1 1 * Physical Therapy (Routine) - Authorized Specialty Diagnoses / Procedures Referred By Contac t Referred To Contact [facility] Diagnoses Degenerative lumbar spinal stenosis Weakness of both lower extremities Procedures CONSULT TO PHYSICAL THERAPY PHYSICAL THERAPY EVALUATION HIGH COMPLEX 45 MINS Francisco Bahena MD [address] [place] [address] [facility] [address] [place] [id number] Referral ID Status Reason Start Date Expiration Date Visits Requested Visits Authorized [id number] Authorized Auto-Generat ed Referral 09/26/2023 09/25/2024 99 99 [facility] for referral (narrative)* Diagnostic Procedure Only (Routine) - Closed Specialty Diagnoses / Procedures Referred By Contac t Referred To Contact XR IMAGING Diagnoses Pain in pelvis Procedures XR PELVIS 1V AP RADIOLOGIC EXAMINATION PELVIS 1/2 VIEWS Francisco Bahena MD [address] [place] [address] Xr Imaging [id number] Referral ID Status Reason Start Date Expiration Date V isits Requested Visits Authorized [id number] Closed Auto-Generate d Referral 01/01/2022 01/31/2023 1 1 [facility] for referral (narrative)* Diagnostic Procedure Only (Routine) - Authorized Specialty Diagnoses / Procedures Referred By Contac t Referred To Contact XR IMAGING Diagnoses Screening for genitourinary condition Nephrolithiasis Complicated UTI (urinary tract infection) Procedures XR ABDOMEN 3V KUB W/OBLIQUES RADIOLOGIC EXAM ABDOMEN 3+ VIEWS O'Angela Swartz PA-C [address] [place] [address] [place] [address] Referral ID Status Reason Start Date Expiration Date Visits Requested Visits Authorized [id number] Authorized Auto-Generat ed Referral 12/28/2023 01/26/2025 1 1 * Diagnostic Procedure Only (Routine) - Authorized Specialty Diagnoses / Procedures Referred By Contac t Referred To Contact US IMAGING Diagnoses Screening for genitourinary condition Nephrolithiasis Complicated UTI (urinary tract infection) Procedures US KIDNEY/BLADDER US RETROPERITONEAL REAL TIME W/IMAGE COMPLETE Angela Harry PA-C [address] [place] [address] [place] [address] Referral ID Status Reason Start Date Expiration Date Visits Requested Visits Authorized [id number] Authorized Auto-Generat ed Referral 12/28/2023 01/26/2025 1 1 [facility] for referral (narrative)* Diagnostic Procedure Only (Urgent) - Closed Specialty Diagnoses / Procedures Referred By Contac t Referred To Contact XR IMAGING Diagnoses Rib pain on left side Procedures XR RIBS/CHEST 3V AP RIB/OBLS/CXR LEFT RADEX RIBS UNI W/POSTEROANT CH MINIMUM 3 VIEWS Francisco Bahena MD [address] [place] [address] [address] [place] [address] Referral ID Status Reason Start Date Expiration Date V isits Requested Visits Authorized [id number] Closed Auto-Generate d Referral 10/10/2024 11/09/2025 1 1 [facility] for referral (narrative)* Diagnostic Procedure Only (Urgent) - Closed Specialty Diagnoses / Procedures Referred By Contac t Referred To Contact XR IMAGING Diagnoses Rib pain on left side Procedures XR RIBS/CHEST 3V AP RIB/OBLS/CXR LEFT RADEX RIBS UNI W/POSTEROANT CH MINIMUM 3 VIEWS Francisco Bahena MD [address] [place] [address] Xr Imaging [place] [address] Referral ID Status Reason Start Date Expiration Date V isits Requested Visits Authorized [id number] Closed Auto-Generate d Referral 10/10/2024 11/09/2025 1 1 [facility] for referral (narrative)No reason for referral information [facility] Phone: [facility] Narrative* Diagnostic Procedure Only (Routine) - Closed Specialty Diagnoses / Procedures Referred By Contac t Referred To Contact [facility] Diagnoses Preop cardiovascular exam Encounter for other preprocedural examination Procedures NM CARDIAC PERF STRESS/PHARM MYOCARDIAL [place] [address] [place] [address] [facility] [address] [place], [place] [id number] Referral ID Status Reason Start Date Expiration Date V isits Requested Visits Authorized [id number] Closed Auto-Generate d Referral 06/23/2022 07/23/2023 1 1 [facility] for visit Narrative* Diagnostic Procedure Only (Routine) - Closed Specialty Diagnoses / Procedures Referred By Contac t Referred To Contact XR IMAGING Diagnoses Dysphagia, unspecified type Procedures XR ESOPHAGRAM RADIOLOGIC EXAM ESOPHAGUS [place] [address] [place] [address] Xr Imaging Referral ID Status Reason Start Date Expiration Date V isits Requested Visits Authorized [id number] Closed Auto-Generate d Referral 08/13/2022 09/12/2023 1 1 [facility] for visit Narrative* Diagnostic Procedure Only (Routine) - Closed Specialty Diagnoses / Procedures Referred By Contac t Referred To Contact XR IMAGING Diagnoses Cervical spondylosis without myelopathy Procedures XR CERV OTHER 6V AP/LAT/FLX/EXT/OBL RADEX SPINE CERVICAL 6 OR MORE VIEWS Rigoberto Church MD [address] [address] Xr Imaging [facility] Referral ID Status Reason Start Date Expiration Date V isits Requested Visits Authorized [id number] Closed Auto-Generate d Referral 06/09/2023 07/08/2024 1 1 [facility] for visit Narrative* Diagnostic Procedure Only (Routine) - Closed Specialty Diagnoses / Procedures Referred By Contac t Referred To Contact XR IMAGING Diagnoses Degenerative scoliosis in adult patient Procedures XR SCOLIOSIS PA STAND/LAT 2V RADEX ENTIR THRC LMBR CRV SAC SPI W/SKULL 2/3 VW Elias Landers PA-C [address] [place] [address] [place] [address] Referral ID Status Reason Start Date Expiration Date V isits Requested Visits Authorized [id number] Closed Auto-Generate d Referral 07/16/2022 08/15/2023 1 1 [facility] for visit Narrative* Diagnostic Procedure Only (Routine) - Closed Specialty Diagnoses / Procedures Referred By Contac t Referred To Contact XR IMAGING Diagnoses S/P lumbar fusion Procedures XR SCOLIOSIS PA STAND/LAT 2V RADEX ENTIR THRC LMBR CRV SAC SPI W/SKULL 2/3 VW Sp[facility] [place] [address] [place] [address] [place] [address] Referral ID Status Reason Start Date Expiration Date V isits Requested Visits Authorized [id number] Closed Auto-Generate d Referral 03/08/2023 04/06/2024 1 1 [facility] for visit Narrative* Outpatient Procedure (Routine) - Closed Specialty Diagnoses / Procedures Referred By Contac t Referred To Contact [facility] Diagnoses LLQ pain Procedures COLONOSCOPY DIAGNOSTIC COLONOSCOPY FLX DX W/COLLJ SPEC WHEN PFRMD Aly Guardado MD [address] [place] [address] [facility] [address] [place] [address] Referral ID Status Reason Start Date Expiration Date V isits Requested Visits Authorized [id number] Closed Auto-Generate d Referral 10/13/2023 10/13/2024 1 1 [facility] for visit Narrative* Diagnostic Procedure Only (Routine) - Closed Specialty Diagnoses / Procedures Referred By Contac t Referred To Contact XR IMAGING Diagnoses Left hip pain Procedures XR HIP BILATERAL 5V PEL/AP/LAT EACH HIP RADEX HIPS BILATERAL WITH PELVIS MINIMUM 5 VIEWS Francisco Bahena MD [address] [place] [address] [place] [address] Referral ID Status Reason Start Date Expiration Date V isits Requested Visits Authorized [id number] Closed Auto-Generate d Referral 11/21/2023 12/20/2024 1 1 [facility] for visit Narrative* Diagnostic Procedure Only (Routine) - Closed Specialty Diagnoses / Procedures Referred By Contac t Referred To Contact XR IMAGING Diagnoses Scoliosis of lumbar spine, unspecified scoliosis type Procedures XR SCOLIOSIS PA STAND/LAT 2V RADEX ENTIR THRC LMBR CRV SAC SPI W/SKULL 2/3 VW Naz Stewart PA-C [address] [place] [address] [place] [address] Referral ID Status Reason Start Date Expiration Date V isits Requested Visits Authorized [id number] Closed Auto-Generate d Referral 03/12/2024 04/11/2025 1 1 [facility] for visit Narrative* Diagnostic Procedure Only (Routine) - Closed Specialty Diagnoses / Procedures Referred By Contac t Referred To Contact XR IMAGING Diagnoses Pain in both hands Procedures XR HAND GENERAL 3V PA/LAT/OBL BILATERAL RADEX HAND MINIMUM 3 VIEWS Francisco Bahena MD [address] [place] [address] [place] [address] Referral ID Status Reason Start Date Expiration Date V isits Requested Visits Authorized [id number] Closed Auto-Generate d Referral 06/15/2024 07/15/2025 1 1 [facility] for visit Narrative* Diagnostic Procedure Only (Routine) - Closed Specialty Diagnoses / Procedures Referred By Contac t Referred To Contact XR IMAGING Diagnoses Pain in pelvis Procedures XR PELVIS 1V AP RADIOLOGIC EXAMINATION PELVIS 1/2 VIEWS Francisco Bahena MD [address] [place] [address] [place] [address] Referral ID Status Reason Start Date Expiration Date V isits Requested Visits Authorized [id number] Closed Auto-Generate d Referral 01/01/2022 01/31/2023 1 1 [facility] for visit Narrative* Diagnostic Procedure Only (Urgent) - Closed Specialty Diagnoses / Procedures Referred By Contac t Referred To Contact XR IMAGING Diagnoses Rib pain on left side Procedures XR RIBS/CHEST 3V AP RIB/OBLS/CXR LEFT RADEX RIBS UNI W/POSTEROANT CH MINIMUM 3 VIEWS Francisco Bahena MD [address] [place] [address] [place] [address] Referral ID Status Reason Start Date Expiration Date V isits Requested Visits Authorized [id number] Closed Auto-Generate d Referral 10/10/2024 11/09/2025 1 1 [facility] for visit Narrative* Diagnostic Procedure Only (Routine) - Closed Specialty Diagnoses / Procedures Referred By Ana Lilia t Referred To Contact [facility] Diagnoses Rib pain on left side Procedures NM BONE WHOLE BODY BONE &/JOINT IMAGING WHOLE BODY Francisco Bahena MD [address] [place] [address] Phone: tel: fax: Molecular Imaging [address] [place], [place] [id number] Phone: tel: Referral ID Status Reason Start Date Expiration Date V isits Requested Visits Authorized [id number] Closed Auto-Generate d Referral 11/13/2024 09/25/2025 1 1 [facility] for visit Narrative* Diagnostic Procedure Only (Routine) - Closed Specialty Diagnoses / Procedures Referred By Contowen t Referred To Contact XR IMAGING Diagnoses Screening for genitourinary condition Nephrolithiasis Complicated UTI (urinary tract infection) Procedures XR ABDOMEN 3V KUB W/OBLIQUES RADIOLOGIC EXAM ABDOMEN 3+ VIEWS OAngela Ogden PA-C [address] [place] [address] Phone: tel: fax: [place] [address] Referral ID Status Reason Start Date Expiration Date V isits Requested Visits Authorized [id number] Closed Auto-Generate d Referral 12/28/2023 01/26/2025 1 1 [facility] Advance Directives No Advanced Directives Records FoundDocuments on File Type Date Recorded 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 Advance Directive(s) 02/02/2021 12:14 PM Advance Directive(s) 01/17/2021 3:32 AM Advance Directive(s) 01/14/2021 2:37 PM Advance Directive(s) 11/28/2020 12:20 PM Advance Directive(s) 08/28/2020 9:49 AM Advance Directive(s) 03/18/2020 10:39 AM Advance Directive(s) 03/12/2020 10:34 AM Advance Directive(s) 10/04/2019 8:28 AM Advance Directive(s) 07/10/2019 11:35 AM Advance Directive(s) 06/26/2019 8:23 AM Advance Directive(s) 08/03/2018 8:26 AM Advance Directive(s) 06/15/2018 7:16 AM Advance Directive(s) 06/01/2018 10:24 AM Advance Directive(s) 05/27/2018 4:39 PM Advance Directive(s) 05/24/2018 8:57 AM Advance Directive(s) 03/28/2018 12:41 PM Advance Directive(s) 03/14/2018 3:39 PM Advance Directive(s) 11/01/2016 1:36 PM Documents on File Type Date Recorded 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 Advance Directive(s) 02/02/2021 12:14 PM Advance Directive(s) 01/17/2021 3:32 AM Advance Directive(s) 01/14/2021 2:37 PM Advance Directive(s) 11/28/2020 12:20 PM Advance Directive(s) 08/28/2020 9:49 AM Advance Directive(s) 03/18/2020 10:39 AM Advance Directive(s) 03/12/2020 10:34 AM Advance Directive(s) 10/04/2019 8:28 AM Advance Directive(s) 07/10/2019 11:35 AM Advance Directive(s) 06/26/2019 8:23 AM Advance Directive(s) 08/03/2018 8:26 AM Advance Directive(s) 06/15/2018 7:16 AM Advance Directive(s) 06/01/2018 10:24 AM Advance Directive(s) 05/27/2018 4:39 PM Advance Directive(s) 05/24/2018 8:57 AM Advance Directive(s) 03/28/2018 12:41 PM Advance Directive(s) 03/14/2018 3:39 PM Advance Directive(s) 11/01/2016 1:36 PM Advance Directive Response Recorded Date/ Time Living Will No May 18 3:09pm Power of Professor Of Violin No May 18 021 3:09pm Advance Directive Response Recorded Date/ Time Name of Medical Power of Professor Of Violin Peter Bond May 03, 2022 6:52am Living Will Yes May 03, 2022 6:52am Power of Professor Of Violin Yes May 03 6:52am Advance Directive Response Recorded Date/ Time Name of Medical Power of Professor Of Violin Peter Bond May 03, 2022 5:52am Living Will No August 16 022 7:50pm Power of Professor Of Violin No August 16, 2022 7:50pm Advance Directive Response Recorded Date/ Time Name of Medical Power of Professor Of Violin peter November 08, 2022 5:25pm Name of Medical Power of Professor Of Violin Peter January 02, 2023 2:22pm Living Will Yes January 02, 2023 2:22pm Power of Professor Of Violin Yes January 02 2:22pm Advance Directive Response Recorded Date/ Time Living Will Yes September 24, 2 023 10:57pm Power of Professor Of Violin Yes September 24, 2023 10:57pm Name of Medical Power of Professor Of Violin alicja bond September 24, 2023 10:57pm Name of Medical Power of Professor Of Violin Peter Bond September 10, 2023 7:58pm Advance Directive Response Recorded Date/ Time Name of Medical Power of Professor Of Violin yumiko bond, peter bond September 25, 2023 1:45am Living Will Yes September 25 2 023 1:45am Power of Professor Of Violin Yes September 25, 2023 1:45am Name of Medical Power of Professor Of Violin Peter Bond September 10, 2023 7:58pm Advance Directive Response Recorded Date/ Time Living Will Yes September 10, 2 023 7:58pm Power of Professor Of Violin Yes September 10, 2023 7:58pm Name of Medical Power of Professor Of Violin Peter Bond September 10, 2023 7:58pm Advance Directive Response Recorded Date/ Time Living Will No January 08, 2025 1:38pm Do you have a Healthcare Power of Professor Of Violin? No January 08, 2025 1:38pm Advance Directive Response Recorded Date/ Time Living Will No January 08, 2025 10:44pm Do you have a Healthcare Power of Professor Of Violin? No January 08, 2025 10:44pm Advance Directive Response Recorded Date/ Time Living Will No January 08, 2025 10:44pm Do you have a Healthcare Power of Professor Of Violin? No January 08, 2025 10:44pm Do you have a Healthcare Power of Professor Of Violin? Yes January 29, 2025 8:30pm Advance Directive Response Recorded Date/ Time Living Will No January 08, 2025 10:44pm Do you have a Healthcare Power of Professor Of Violin? No January 08, 2025 10:44pm Do you have a Healthcare Power of Professor Of Violin? Yes January 29, 2025 8:30pm Do you have a Healthcare Power of Professor Of Violin? Yes April 12, 2025 2:33pm Advance Directive Response Recorded Date/ Time Living Will No January 08, 2025 10:44pm Do you have a Healthcare Power of Professor Of Violin? No January 08, 2025 10:44pm Do you have a Healthcare Power of Professor Of Violin? Yes January 29, 2025 8:30pm Do you have a Healthcare Power of Professor Of Violin? Yes April 12, 2025 5:34pm Reason for Referral Specialty Diagnoses / Procedures Referred By Ana Lilia turcios Referred To Contact CT IMAGING Diagnoses Lower abdominal pain Left lower quadrant abdominal pain Procedures CT ABD/PEL W IVCON CT ABD & PELVIS W/CONTRAST Francisco Bahena MD [address] [place] [address] Ct Imaging Referral ID Status Reason Start Date Expiration Date V isits Requested Visits Authorized [id number] Closed Auto-Generate d Referral 01/01/2022 01/31/2023 1 1 Specialty Diagnoses / Procedures Referred By Ana Lilia turcios Referred To Contact General Surgery Diagnoses Gastroesophageal reflux disease, unspecified whether esophagitis present LUQ pain Hiatal hernia Procedures CONSULT TO GENERAL SURGERY OFFICE/OUTPATIENT [facility] 60-74 MINUTES Francisco Bahena MD [address] [place] [address] Referral ID Status Reason Start Date Expiration Date Visits Requested Visits Authorized [id number] Pending Review PCP Requested Referral 06/09/2022 06/09/2023 1 1 Specialty Diagnoses / Procedures Referred By Contac t Referred To Contact Ent - Otolaryngology Diagnoses Vocal cord paralysis Procedures CONSULT TO ENT OFFICE/OUTPATIENT [facility] 60-74 MINUTES Petey Rosas PA-C [address] [place] [address] Referral ID Status Reason Start Date Expiration Date Visits Requested Visits Authorized [id number] Pending Review PCP Requested Referral 08/27/2022 08/27/2023 1 1 Specialty Diagnoses / Procedures Referred By Contac t Referred To Contact Allergy Diagnoses Pruritus Procedures CONSULT TO ALLERGY/IMMUNOLOGY OFFICE/OUTPATIENT [facility] 60-74 MINUTES Francisco Bahena MD [address] [place] [address] Referral ID Status Reason Start Date Expiration Date Visits Requested Visits Authorized [id number] Pending Review PCP Requested Referral 11/10/2022 11/10/2023 1 1 Specialty Diagnoses / Procedures Referred By Contac t Referred To Contact Hematology Diagnoses Abnormal SPEP Itchy skin Procedures CONSULT TO HEMATOLOGY OFFICE/OUTPATIENT [facility] 60-74 MINUTES Francisco Bahena MD [address] [place] [address] Referral ID Status Reason Start Date Expiration Date Visits Requested Visits Authorized [id number] Pending Review PCP Requested Referral 12/07/2022 12/07/2023 1 1 Specialty Diagnoses / Procedures Referred By Contac t Referred To Contact ANESTHESIOLOGY Diagnoses BPH with urinary obstruction Procedures REFER TO PACC - PRE ANESTHESIA CONSULTATION CLINIC OFFICE/OUTPATIENT [facility] 60-74 MINUTES Yun Coles MD [address] [place] [address] [facility] [address] [place] [address] Referral ID Status Reason Start Date Expiration Date Visits Requested Visits Authorized [id number] Pending Review PCP Requested Referral 12/21/2022 12/21/2023 1 1 Specialty Diagnoses / Procedures Referred By Contac t Referred To Contact Pain Management Diagnoses Chronic neck pain Procedures CONSULT TO PAIN MGT OFFICE/OUTPATIENT NEW [facility] 60-74 MINUTES Cherelle Benavides PA-C [address] [place] [address] Referral ID Status Reason Start Date Expiration Date Visits Requested Visits Authorized [id number] Pending Review PCP Requested Referral 04/05/2023 04/04/2024 1 1 Specialty Diagnoses / Procedures Referred By Contac t Referred To Contact [facility] Diagnoses Unstable gait Chronic neck pain Lumbar back pain Procedures CONSULT TO PHYSICAL THERAPY PHYSICAL THERAPY EVALUATION HIGH COMPLEX 45 MINS THERAPEUTIC EXERCISES RE, EA 15 MIN. Cherelle Benavides PA-C [address] [place] [address] [facility] [address] [place] [id number] Referral ID Status Reason Start Date Expiration Date Visits Requested Visits Authorized [id number] Authorized Auto-Generat ed Referral 09/26/2022 09/25/2023 99 99 Specialty Diagnoses / Procedures Referred By Contac t Referred To Contact [facility] Diagnoses Unstable gait Chronic neck pain Lumbar back pain Procedures PT REHAB FOLLOW UP ORDER THERAPEUTIC EXERCISES RE, EA 15 MIN. Laurel Chavez, PT [facility] [address] [place] [id number] Referral ID Status Reason Start Date Expiration Date Visits Requested Visits Authorized [id number] Pending Review PCP Requested Referral Auto-Generate d Referral 04/12/2023 07/11/2023 1 1 Specialty Diagnoses / Procedures Referred By Contac t Referred To Contact CT IMAGING Diagnoses Left lower quadrant abdominal pain Procedures CT ABD/PEL WO IVCON CT ABD & PELVIS W/O CONTRAST Francisco Bahena MD [address] [place] [address] [place] [address] Referral ID Status Reason Start Date Expiration Date Visits Requested Visits Authorized [id number] Authorized Auto-Generat ed Referral 09/23/2024 1 1 Referral ID Status Reason Start Date Expiration Date Visits Requested Visits Authorized [id number] Authorized Auto-Generat ed Referral 3 09/23/2024 1 1 Specialty Diagnoses / Procedures Referred By Contac t Referred To Contact CT IMAGING Diagnoses Abdominal pain, left lower quadrant Generalized abdominal pain Procedures CT ABD/PEL WO IVCON CT ABD & PELVIS W/O CONTRAST Trinidad Roque APRN.[address] [address] [address] [id number] Referral ID Status Reason Start Date Expiration Date V isits Requested Visits Authorized [id number] Closed Auto-Generate d Referral 08/30/2023 09/28/2024 1 1 Specialty Diagnoses / Procedures Referred By Contac t Referred To Contact MR IMAGING Diagnoses Memory deficits Dementia without behavioral disturbance (HCC) Procedures MRI BRAIN WO IVCON MRI BRAIN BRAIN STEM W/O CONTRAST MATERIAL Francisco Bahena MD [address] [place] [id number] Mr Imaging [id number] Referral ID Status Reason Start Date Expiration Date V isits Requested Visits Authorized [id number] Closed Auto-Generate d Referral 11/21/2023 12/20/2024 1 1 Specialty Diagnoses / Procedures Referred By Contac t Referred To Contact Neurology Diagnoses Nightmares Dementia without behavioral disturbance (HCC) Procedures CONSULT TO NEUROLOGY Trinidad Roque APRN.[employer] [address] [place] [id number] Quinten Yu Jr., MD [address] [place] [phone] Referral ID Status Reason Start Date Expiration Date Visits Requested Visits Authorized [id number] Ref Not Required PCP Requested Referral 06/07/2024 06/07/2025 1 1 Specialty Diagnoses / Procedures Referred By Contac t Referred To Contact Rheumatology Diagnoses Pain in both hands Procedures CONSULT TO RHEUM/IMMUN DISEASE OFFICE/OUTPATIENT [facility] 60 MINUTES Trinidad Roque APRN.[employer] [facility] [place] [address] Referral ID Status Reason Start Date Expiration Date Visits Requested Visits Authorized [id number] Authorized PCP Requested Referral 06/22/2024 06/22/2025 1 1 Specialty Diagnoses / Procedures Referred By Contac t Referred To Contact CT IMAGING Diagnoses Left upper quadrant abdominal pain Procedures CT ABD/PEL W IVCON CT ABD & PELVIS W/CONTRAST Trinidad Roque APRN.[employer] [address] [place] [address] [place] [address] Referral ID Status Reason Start Date Expiration Date Visits Requested Visits Authorized [id number] New Request Auto-Generat ed Referral 06/25/2024 07/25/2025 1 1 Specialty Diagnoses / Procedures Referred By Contac t Referred To Contact [facility] Diagnoses Pain in both hands Procedures CONSULT OCCUPATIONAL MEDICINE OFFICE/OUTPATIENT [facility] 60 MINUTES Trinidad Roque APRN.[employer] [address] [place] [address] [facility] [address] [place] [address] Referral ID Status Reason Start Date Expiration Date Visits Requested Visits Authorized [id number] Authorized PCP Requested Referral Auto-Generate d Referral 06/25/2024 06/25/2025 1 1 Specialty Diagnoses / Procedures Referred By Contac t Referred To Contact HEMATOLOGY/ONCOLOGY Diagnoses Abnormal serum protein electrophoresis Neuropathy - (NOS) Procedures CONSULT TO HEMATOLOGY OFFICE/OUTPATIENT [facility] 60 MINUTES Francisco Bahena MD [address] [place] [address] Kulwinder Mccann MD [address] [place] [id number] Referral ID Status Reason Start Date Expiration Date Visits Requested Visits Authorized [id number] Authorized PCP Requested Referral 09/03/2024 09/03/2025 1 1 Specialty Diagnoses / Procedures Referred By Contac t Referred To Contact Hematology Diagnoses Iron deficiency anemia, unspecified iron deficiency anemia type Procedures CONSULT TO HEMATOLOGY OFFICE/OUTPATIENT [facility] 60 MINUTES Francisco Bahena MD [address] [place] [address] Referral ID Status Reason Start Date Expiration Date Visits Requested Visits Authorized [id number] Authorized PCP Requested Referral 10/11/2024 10/11/2025 1 1 Chief Complaint and Reason for Visit Chief Complaint DYSPHAGIA Chief Complaint DYSPHAGIA edema DYSPHAGIA Chief Complaint edema DYSPHAGIA SHAKING Chief Complaint swelling CONSTIPATION Chief Complaint ABDOMINAL PAIN FEVER OF UNKNOWN ORIGIN, WEAKNESS Reason for Visit Acute febrile illnes s Acute UTI Near syncope Vomiting Chief Complaint ABDOMINAL PAIN FEVER OF UNKNOWN ORIGIN, WEAKNESS FEVER OF UNKNOWN ORIGIN, WEAKNESS FEVER OF UNKNOWN ORIGIN, WEAKNESS FEVER OF UNKNOWN ORIGIN, WEAKNESS FEVER OF UNKNOWN ORIGIN, WEAKNESS Reason for Visit Acute febrile illnes s Acute UTI Near syncope Sepsis without septic shock Vomiting Weakness Chief Complaint ABDOMINAL PAIN Chief Complaint Admit Date UTI, ADULT FTT, ELEVATED TROP December 6:51pm Reason for Visit Admit Date Acute UTI January 08, 2025 6:5 1pm Weakness of both lower extremities January 08, 2025 6:51pm Chief Complaint Admit Date UTI, ADULT FTT, ELEVATED TROP December 6:51pm UTI, ADULT FTT, ELEVATED TROP December 11:47am Chief Complaint Admit Date UTI, ADULT FTT, ELEVATED TROP December 6:51pm UTI, ADULT FTT, ELEVATED TROP December 11:47am UTI, ADULT FTT, ELEVATED TROP December 4:47pm WEAKNESS AND UTI January 29, 2025 8:24pm Chief Complaint Admit Date UTI, ADULT FTT, ELEVATED TROP December 6:51pm UTI, ADULT FTT, ELEVATED TROP December 11:47am UTI, ADULT FTT, ELEVATED TROP December 4:47pm WEAKNESS AND UTI January 29, 2025 8:24pm GENERAL ILLNESS April 12, 2025 5:05 pm Reason for Visit Admit Date Acute UTI January 08, 2025 6:5 1pm Weakness of both lower extremities January 08, 2025 6:51pm UTI (urinary tract infection) April 12, 2025 5:05pm Weakness April 12, 2025 5:05 pm Chief Complaint Admit Date UTI, ADULT FTT, ELEVATED TROP December 6:51pm UTI, ADULT FTT, ELEVATED TROP December 11:47am UTI, ADULT FTT, ELEVATED TROP December 4:47pm WEAKNESS AND UTI January 29, 2025 8:24pm GENERAL ILLNESS April 12, 2025 5:05 pm GENERAL ILLNESS April 13, 2025 7:48 am GENERAL ILLNESS April 14, 2025 8:00 am GENERAL ILLNESS April 15, 2025 3:25 pm GENERAL ILLNESS April 16, 2025 11:0 3am GENERAL ILLNESS April 17, 2025 11:0 3am Reason for Visit Admit Date Acute UTI January 08, 2025 6:5 1pm Weakness of both lower extremities January 08, 2025 6:51pm Acute UTI April 12, 2025 5:05 pm Falls April 12, 2025 5:05 pm UTI (urinary tract infection) April 12, 2025 5:05pm Weakness April 12, 2025 5:05 pm Family History No Family History Records Found Relationship Condition Age at Onset Recorded Date/T sergio father Malignant neoplasm of colon Unknown mother Malignant neoplasm Unknown Hypertension Unknown brother Malignant neoplasm Unknown Summary Purpose Medications Administered Section Inactive Administered Medications - up to 3 most recent administrations Medication Order MAR Action Action Date Dose Rate Site iron sucrose 200 mg in NaCl 0.9% 100ml (VENOFER) 200 mg, INTRAVENOUS, at 400 mL/hr, Administer over 15 Minutes, ONCE, 1 dose, On Tue12/17/22 at 1400, Please conduct a 30 minute post dose observation. New Bag/Syringe/Bottle 12/17/2022 2:17 PM EDT 200 mg 400 mL/hr Inactive Administered Medications - up to 3 most recent administrations Medication Order MAR Action Action Date Dose Rate Site iron sucrose 200 mg in NaCl 0.9% 100ml (VENOFER) 200 mg, INTRAVENOUS, at 400 mL/hr, Administer over 15 Minutes, ONCE, 1 dose, On Tue12/22/22 at 1400, Please conduct a 30 minute post dose observation. New Bag/Syringe/Bottle 12/22/2022 2:00 PM EDT 200 mg 400 mL/hr Inactive Administered Medications - up to 3 most recent administrations Medication Order MAR Action Action Date Dose Rate Site iron sucrose 200 mg in NaCl 0.9% 100ml (VENOFER) 200 mg, INTRAVENOUS, at 400 mL/hr, Administer over 15 Minutes, ONCE, 1 dose, On Tue12/24/22 at 1430, Please conduct a 30 minute post dose observation. New Bag/Syringe/Bottle 12/24/2022 2:20 PM EDT 200 mg 400 mL/hr Inactive Administered Medications - up to 3 most recent administrations Medication Order MAR Action Action Date Dose Rate Site iron sucrose 200 mg in NaCl 0.9% 100ml (VENOFER) 200 mg, INTRAVENOUS, at 400 mL/hr, Administer over 15 Minutes, ONCE, 1 dose, On Connie 12/30/22 at 1400, Please conduct a 30 minute post dose observation. New Bag/Syringe/Bottle 12/30/2022 1:52 PM EDT 200 mg 400 mL/hr Inactive Administered Medications - up to 3 most recent administrations Medication Order MAR Action Action Date Dose Rate Site iron sucrose 200 mg in NaCl 0.9% 100ml (VENOFER) 200 mg, INTRAVENOUS, at 400 mL/hr, Administer over 15 Minutes, ONCE, 1 dose, On 01/03/23 at 1430, Please conduct a 30 minute post dose observation. New Bag/Syringe/Bottle 01/03/2023 2:10 PM EDT 200 mg 400 mL/hr Inactive Administered Medications - up to 3 most recent administrations Medication Order MAR Action Action Date Dose Rate Site BUPivacaine (PF) 0.5 % (5 mg/mL) 5 mg injection 5 mg, OTHER, ONCE, 1 dose, On Tue07/13/23 at 1030 Given by LIP 07/13/2023 10:12 AM EDT 5 mg lidocaine (PF) 10 mg/mL (1 %) 100 mg injection (XYLOCAINE) 100 mg, OTHER, ONCE, 1 dose, On Tue07/13/23 at 1000 Given by LIP 07/13/2023 9:54 AM EDT 100 mg Additional Source Comments Source Comments (unrecognize d section and content) In the event this informatio n is protected by the Federal Confidentiality of Alcohol and Drug Abuse Patient Records regulations: The Federal rules restrict any use of the information to criminally investigate or prosecute any alcohol or drug abuse patient.[facility] the event this information is protected by the Federal Confidentiality of Alcohol and Drug Abuse Patient Records regulations: The Federal rules restrict any use of the information to criminally investigate or prosecute any alcohol or drug abuse patient.[facility] HospitalIn the event this information is protected by the Federal Confidentiality of Alcohol and Drug Abuse Patient Records regulations: The Federal rules restrict any use of the information to criminally investigate or prosecute any alcohol or drug abuse patient.[facility] HospitalIn the event this information is protected by the Federal Confidentiality of Alcohol and Drug Abuse Patient Records regulations: The Federal rules restrict any use of the information to criminally investigate or prosecute any alcohol or drug abuse patient.[facility] HospitalIn the event this information is protected by the Federal Confidentiality of Alcohol and Drug Abuse Patient Records regulations: The Federal rules restrict any use of the information to criminally investigate or prosecute any alcohol or drug abuse patient.[facility] HospitalIn the event this information is protected by the Federal Confidentiality of Alcohol and Drug Abuse Patient Records regulations: The Federal rules restrict any use of the information to criminally investigate or prosecute any alcohol or drug abuse patient.[facility] HospitalIn the event this information is protected by the Federal Confidentiality of Alcohol and Drug Abuse Patient Records regulations: The Federal rules restrict any use of the information to criminally investigate or prosecute any alcohol or drug abuse patient.[facility] HospitalIn the event this information is protected by the Federal Confidentiality of Alcohol and Drug Abuse Patient Records regulations: The Federal rules restrict any use of the information to criminally investigate or prosecute any alcohol or drug abuse patient.[facility] HospitalIn the event this information is protected by the Federal Confidentiality of Alcohol and Drug Abuse Patient Records regulations: The Federal rules restrict any use of the information to criminally investigate or prosecute any alcohol or drug abuse patient.[facility] HospitalIn the event this information is protected by the Federal Confidentiality of Alcohol and Drug Abuse Patient Records regulations: The Federal rules restrict any use of the information to criminally investigate or prosecute any alcohol or drug abuse patient.[facility] HospitalIn the event this information is protected by the Federal Confidentiality of Alcohol and Drug Abuse Patient Records regulations: The Federal rules restrict any use of the information to criminally investigate or prosecute any alcohol or drug abuse patient.[facility] HospitalIn the event this information is protected by the Federal Confidentiality of Alcohol and Drug Abuse Patient Records regulations: The Federal rules restrict any use of the information to criminally investigate or prosecute any alcohol or drug abuse patient.[facility] HospitalIn the event this information is protected by the Federal Confidentiality of Alcohol and Drug Abuse Patient Records regulations: The Federal rules restrict any use of the information to criminally investigate or prosecute any alcohol or drug abuse patient.[facility] HospitalIn the event this information is protected by the Federal Confidentiality of Alcohol and Drug Abuse Patient Records regulations: The Federal rules restrict any use of the information to criminally investigate or prosecute any alcohol or drug abuse patient.[facility] HospitalIn the event this information is protected by the Federal Confidentiality of Alcohol and Drug Abuse Patient Records regulations: The Federal rules restrict any use of the information to criminally investigate or prosecute any alcohol or drug abuse patient.[facility] HospitalIn the event this information is protected by the Federal Confidentiality of Alcohol and Drug Abuse Patient Records regulations: The Federal rules restrict any use of the information to criminally investigate or prosecute any alcohol or drug abuse patient.[facility] HospitalIn the event this information is protected by the Federal Confidentiality of Alcohol and Drug Abuse Patient Records regulations: The Federal rules restrict any use of the information to criminally investigate or prosecute any alcohol or drug abuse patient.[facility] HospitalIn the event this information is protected by the Federal Confidentiality of Alcohol and Drug Abuse Patient Records regulations: The Federal rules restrict any use of the information to criminally investigate or prosecute any alcohol or drug abuse patient.[facility] HospitalIn the event this information is protected by the Federal Confidentiality of Alcohol and Drug Abuse Patient Records regulations: The Federal rules restrict any use of the information to criminally investigate or prosecute any alcohol or drug abuse patient.[facility] HospitalIn the event this information is protected by the Federal Confidentiality of Alcohol and Drug Abuse Patient Records regulations: The Federal rules restrict any use of the information to criminally investigate or prosecute any alcohol or drug abuse patient.[facility] HospitalIn the event this information is protected by the Federal Confidentiality of Alcohol and Drug Abuse Patient Records regulations: The Federal rules restrict any use of the information to criminally investigate or prosecute any alcohol or drug abuse patient.[facility] HospitalIn the event this information is protected by the Federal Confidentiality of Alcohol and Drug Abuse Patient Records regulations: The Federal rules restrict any use of the information to criminally investigate or prosecute any alcohol or drug abuse patient.[facility] HospitalIn the event this information is protected by the Federal Confidentiality of Alcohol and Drug Abuse Patient Records regulations: The Federal rules restrict any use of the information to criminally investigate or prosecute any alcohol or drug abuse patient.[facility] HospitalIn the event this information is protected by the Federal Confidentiality of Alcohol and Drug Abuse Patient Records regulations: The Federal rules restrict any use of the information to criminally investigate or prosecute any alcohol or drug abuse patient.[facility] HospitalIn the event this information is protected by the Federal Confidentiality of Alcohol and Drug Abuse Patient Records regulations: The Federal rules restrict any use of the information to criminally investigate or prosecute any alcohol or drug abuse patient.[facility] HospitalIn the event this information is protected by the Federal Confidentiality of Alcohol and Drug Abuse Patient Records regulations: The Federal rules restrict any use of the information to criminally investigate or prosecute any alcohol or drug abuse patient.[facility] HospitalIn the event this information is protected by the Federal Confidentiality of Alcohol and Drug Abuse Patient Records regulations: The Federal rules restrict any use of the information to criminally investigate or prosecute any alcohol or drug abuse patient.[facility] HospitalIn the event this information is protected by the Federal Confidentiality of Alcohol and Drug Abuse Patient Records regulations: The Federal rules restrict any use of the information to criminally investigate or prosecute any alcohol or drug abuse patient.[facility] ClinicIn the event this information is protected by the Federal Confidentiality of Alcohol and Drug Abuse Patient Records regulations: The Federal rules restrict any use of the information to criminally investigate or prosecute any alcohol or drug abuse patient.[facility] HospitalIn the event this information is protected by the Federal Confidentiality of Alcohol and Drug Abuse Patient Records regulations: The Federal rules restrict any use of the information to criminally investigate or prosecute any alcohol or drug abuse patient.[facility] HospitalIn the event this information is protected by the Federal Confidentiality of Alcohol and Drug Abuse Patient Records regulations: The Federal rules restrict any use of the information to criminally investigate or prosecute any alcohol or drug abuse patient.[facility] HospitalIn the event this information is protected by the Federal Confidentiality of Alcohol and Drug Abuse Patient Records regulations: The Federal rules restrict any use of the information to criminally investigate or prosecute any alcohol or drug abuse patient.[facility] HospitalIn the event this information is protected by the Federal Confidentiality of Alcohol and Drug Abuse Patient Records regulations: The Federal rules restrict any use of the information to criminally investigate or prosecute any alcohol or drug abuse patient.[facility] HospitalIn the event this information is protected by the Federal Confidentiality of Alcohol and Drug Abuse Patient Records regulations: The Federal rules restrict any use of the information to criminally investigate or prosecute any alcohol or drug abuse patient.[facility] HospitalIn the event this information is protected by the Federal Confidentiality of Alcohol and Drug Abuse Patient Records regulations: The Federal rules restrict any use of the information to criminally investigate or prosecute any alcohol or drug abuse patient.[facility] HospitalIn the event this information is protected by the Federal Confidentiality of Alcohol and Drug Abuse Patient Records regulations: The Federal rules restrict any use of the information to criminally investigate or prosecute any alcohol or drug abuse patient.[facility] HospitalIn the event this information is protected by the Federal Confidentiality of Alcohol and Drug Abuse Patient Records regulations: The Federal rules restrict any use of the information to criminally investigate or prosecute any alcohol or drug abuse patient.[facility] HospitalIn the event this information is protected by the Federal Confidentiality of Alcohol and Drug Abuse Patient Records regulations: The Federal rules restrict any use of the information to criminally investigate or prosecute any alcohol or drug abuse patient.[facility] HospitalIn the event this information is protected by the Federal Confidentiality of Alcohol and Drug Abuse Patient Records regulations: The Federal rules restrict any use of the information to criminally investigate or prosecute any alcohol or drug abuse patient.[facility] HospitalIn the event this information is protected by the Federal Confidentiality of Alcohol and Drug Abuse Patient Records regulations: The Federal rules restrict any use of the information to criminally investigate or prosecute any alcohol or drug abuse patient.[facility] HospitalIn the event this information is protected by the Federal Confidentiality of Alcohol and Drug Abuse Patient Records regulations: The Federal rules restrict any use of the information to criminally investigate or prosecute any alcohol or drug abuse patient.[facility] HospitalIn the event this information is protected by the Federal Confidentiality of Alcohol and Drug Abuse Patient Records regulations: The Federal rules restrict any use of the information to criminally investigate or prosecute any alcohol or drug abuse patient.[facility] HospitalIn the event this information is protected by the Federal Confidentiality of Alcohol and Drug Abuse Patient Records regulations: The Federal rules restrict any use of the information to criminally investigate or prosecute any alcohol or drug abuse patient.[facility] HospitalIn the event this information is protected by the Federal Confidentiality of Alcohol and Drug Abuse Patient Records regulations: The Federal rules restrict any use of the information to criminally investigate or prosecute any alcohol or drug abuse patient.[facility] HospitalIn the event this information is protected by the Federal Confidentiality of Alcohol and Drug Abuse Patient Records regulations: The Federal rules restrict any use of the information to criminally investigate or prosecute any alcohol or drug abuse patient.[facility] HospitalIn the event this information is protected by the Federal Confidentiality of Alcohol and Drug Abuse Patient Records regulations: The Federal rules restrict any use of the information to criminally investigate or prosecute any alcohol or drug abuse patient.[facility] HospitalIn the event this information is protected by the Federal Confidentiality of Alcohol and Drug Abuse Patient Records regulations: The Federal rules restrict any use of the information to criminally investigate or prosecute any alcohol or drug abuse patient.[facility] HospitalIn the event this information is protected by the Federal Confidentiality of Alcohol and Drug Abuse Patient Records regulations: The Federal rules restrict any use of the information to criminally investigate or prosecute any alcohol or drug abuse patient.[facility] HospitalIn the event this information is protected by the Federal Confidentiality of Alcohol and Drug Abuse Patient Records regulations: The Federal rules restrict any use of the information to criminally investigate or prosecute any alcohol or drug abuse patient.[facility] HospitalIn the event this information is protected by the Federal Confidentiality of Alcohol and Drug Abuse Patient Records regulations: The Federal rules restrict any use of the information to criminally investigate or prosecute any alcohol or drug abuse patient.[facility] HospitalIn the event this information is protected by the Federal Confidentiality of Alcohol and Drug Abuse Patient Records regulations: The Federal rules restrict any use of the information to criminally investigate or prosecute any alcohol or drug abuse patient.[facility]In the event this information is protected by the Federal Confidentiality of Alcohol and Drug Abuse Patient Records regulations: The Federal rules restrict any use of the information to criminally investigate or prosecute any alcohol or drug abuse patient.[facility] HospitalIn the event this information is protected by the Federal Confidentiality of Alcohol and Drug Abuse Patient Records regulations: The Federal rules restrict any use of the information to criminally investigate or prosecute any alcohol or drug abuse patient.[facility] HospitalIn the event this information is protected by the Federal Confidentiality of Alcohol and Drug Abuse Patient Records regulations: The Federal rules restrict any use of the information to criminally investigate or prosecute any alcohol or drug abuse patient.[facility] HospitalIn the event this information is protected by the Federal Confidentiality of Alcohol and Drug Abuse Patient Records regulations: The Federal rules restrict any use of the information to criminally investigate or prosecute any alcohol or drug abuse patient.[facility] HospitalIn the event this information is protected by the Federal Confidentiality of Alcohol and Drug Abuse Patient Records regulations: The Federal rules restrict any use of the information to criminally investigate or prosecute any alcohol or drug abuse patient.[facility] HospitalIn the event this information is protected by the Federal Confidentiality of Alcohol and Drug Abuse Patient Records regulations: The Federal rules restrict any use of the information to criminally investigate or prosecute any alcohol or drug abuse patient.[facility] HospitalIn the event this information is protected by the Federal Confidentiality of Alcohol and Drug Abuse Patient Records regulations: The Federal rules restrict any use of the information to criminally investigate or prosecute any alcohol or drug abuse patient.[facility] HospitalIn the event this information is protected by the Federal Confidentiality of Alcohol and Drug Abuse Patient Records regulations: The Federal rules restrict any use of the information to criminally investigate or prosecute any alcohol or drug abuse patient.[facility] HospitalIn the event this information is protected by the Federal Confidentiality of Alcohol and Drug Abuse Patient Records regulations: The Federal rules restrict any use of the information to criminally investigate or prosecute any alcohol or drug abuse patient.[facility] HospitalIn the event this information is protected by the Federal Confidentiality of Alcohol and Drug Abuse Patient Records regulations: The Federal rules restrict any use of the information to criminally investigate or prosecute any alcohol or drug abuse patient.[facility] HospitalIn the event this information is protected by the Federal Confidentiality of Alcohol and Drug Abuse Patient Records regulations: The Federal rules restrict any use of the information to criminally investigate or prosecute any alcohol or drug abuse patient.[facility] HospitalIn the event this information is protected by the Federal Confidentiality of Alcohol and Drug Abuse Patient Records regulations: The Federal rules restrict any use of the information to criminally investigate or prosecute any alcohol or drug abuse patient.[facility] HospitalIn the event this information is protected by the Federal Confidentiality of Alcohol and Drug Abuse Patient Records regulations: The Federal rules restrict any use of the information to criminally investigate or prosecute any alcohol or drug abuse patient.[facility] HospitalIn the event this information is protected by the Federal Confidentiality of Alcohol and Drug Abuse Patient Records regulations: The Federal rules restrict any use of the information to criminally investigate or prosecute any alcohol or drug abuse patient.[facility] HospitalIn the event this information is protected by the Federal Confidentiality of Alcohol and Drug Abuse Patient Records regulations: The Federal rules restrict any use of the information to criminally investigate or prosecute any alcohol or drug abuse patient.[facility] HospitalIn the event this information is protected by the Federal Confidentiality of Alcohol and Drug Abuse Patient Records regulations: The Federal rules restrict any use of the information to criminally investigate or prosecute any alcohol or drug abuse patient.[facility] HospitalIn the event this information is protected by the Federal Confidentiality of Alcohol and Drug Abuse Patient Records regulations: The Federal rules restrict any use of the information to criminally investigate or prosecute any alcohol or drug abuse patient.[facility] HospitalIn the event this information is protected by the Federal Confidentiality of Alcohol and Drug Abuse Patient Records regulations: The Federal rules restrict any use of the information to criminally investigate or prosecute any alcohol or drug abuse patient.[facility] HospitalIn the event this information is protected by the Federal Confidentiality of Alcohol and Drug Abuse Patient Records regulations: The Federal rules restrict any use of the information to criminally investigate or prosecute any alcohol or drug abuse patient.[facility] HospitalIn the event this information is protected by the Federal Confidentiality of Alcohol and Drug Abuse Patient Records regulations: The Federal rules restrict any use of the information to criminally investigate or prosecute any alcohol or drug abuse patient.[facility] HospitalIn the event this information is protected by the Federal Confidentiality of Alcohol and Drug Abuse Patient Records regulations: The Federal rules restrict any use of the information to criminally investigate or prosecute any alcohol or drug abuse patient.[facility] HospitalIn the event this information is protected by the Federal Confidentiality of Alcohol and Drug Abuse Patient Records regulations: The Federal rules restrict any use of the information to criminally investigate or prosecute any alcohol or drug abuse patient.[facility] HospitalIn the event this information is protected by the Federal Confidentiality of Alcohol and Drug Abuse Patient Records regulations: The Federal rules restrict any use of the information to criminally investigate or prosecute any alcohol or drug abuse patient.[facility] HospitalIn the event this information is protected by the Federal Confidentiality of Alcohol and Drug Abuse Patient Records regulations: The Federal rules restrict any use of the information to criminally investigate or prosecute any alcohol or drug abuse patient.[facility] HospitalIn the event this information is protected by the Federal Confidentiality of Alcohol and Drug Abuse Patient Records regulations: The Federal rules restrict any use of the information to criminally investigate or prosecute any alcohol or drug abuse patient.[facility] HospitalIn the event this information is protected by the Federal Confidentiality of Alcohol and Drug Abuse Patient Records regulations: The Federal rules restrict any use of the information to criminally investigate or prosecute any alcohol or drug abuse patient.[facility] HospitalIn the event this information is protected by the Federal Confidentiality of Alcohol and Drug Abuse Patient Records regulations: The Federal rules restrict any use of the information to criminally investigate or prosecute any alcohol or drug abuse patient.[facility]In the event this information is protected by the Federal Confidentiality of Alcohol and Drug Abuse Patient Records regulations: The Federal rules restrict any use of the information to criminally investigate or prosecute any alcohol or drug abuse patient.[facility] HospitalIn the event this information is protected by the Federal Confidentiality of Alcohol and Drug Abuse Patient Records regulations: The Federal rules restrict any use of the information to criminally investigate or prosecute any alcohol or drug abuse patient.[facility] HospitalIn the event this information is protected by the Federal Confidentiality of Alcohol and Drug Abuse Patient Records regulations: The Federal rules restrict any use of the information to criminally investigate or prosecute any alcohol or drug abuse patient.[facility] HospitalIn the event this information is protected by the Federal Confidentiality of Alcohol and Drug Abuse Patient Records regulations: The Federal rules restrict any use of the information to criminally investigate or prosecute any alcohol or drug abuse patient.[facility] HospitalIn the event this information is protected by the Federal Confidentiality of Alcohol and Drug Abuse Patient Records regulations: The Federal rules restrict any use of the information to criminally investigate or prosecute any alcohol or drug abuse patient.[facility] HospitalIn the event this information is protected by the Federal Confidentiality of Alcohol and Drug Abuse Patient Records regulations: The Federal rules restrict any use of the information to criminally investigate or prosecute any alcohol or drug abuse patient.[facility] HospitalIn the event this information is protected by the Federal Confidentiality of Alcohol and Drug Abuse Patient Records regulations: The Federal rules restrict any use of the information to criminally investigate or prosecute any alcohol or drug abuse patient.[facility] HospitalIn the event this information is protected by the Federal Confidentiality of Alcohol and Drug Abuse Patient Records regulations: The Federal rules restrict any use of the information to criminally investigate or prosecute any alcohol or drug abuse patient.[facility] HospitalIn the event this information is protected by the Federal Confidentiality of Alcohol and Drug Abuse Patient Records regulations: The Federal rules restrict any use of the information to criminally investigate or prosecute any alcohol or drug abuse patient.[facility] HospitalIn the event this information is protected by the Federal Confidentiality of Alcohol and Drug Abuse Patient Records regulations: The Federal rules restrict any use of the information to criminally investigate or prosecute any alcohol or drug abuse patient.[facility] HospitalIn the event this information is protected by the Federal Confidentiality of Alcohol and Drug Abuse Patient Records regulations: The Federal rules restrict any use of the information to criminally investigate or prosecute any alcohol or drug abuse patient.[facility] HospitalIn the event this information is protected by the Federal Confidentiality of Alcohol and Drug Abuse Patient Records regulations: The Federal rules restrict any use of the information to criminally investigate or prosecute any alcohol or drug abuse patient.[facility] HospitalIn the event this information is protected by the Federal Confidentiality of Alcohol and Drug Abuse Patient Records regulations: The Federal rules restrict any use of the information to criminally investigate or prosecute any alcohol or drug abuse patient.[facility] HospitalIn the event this information is protected by the Federal Confidentiality of Alcohol and Drug Abuse Patient Records regulations: The Federal rules restrict any use of the information to criminally investigate or prosecute any alcohol or drug abuse patient.[facility] HospitalIn the event this information is protected by the Federal Confidentiality of Alcohol and Drug Abuse Patient Records regulations: The Federal rules restrict any use of the information to criminally investigate or prosecute any alcohol or drug abuse patient.[facility] HospitalIn the event this information is protected by the Federal Confidentiality of Alcohol and Drug Abuse Patient Records regulations: The Federal rules restrict any use of the information to criminally investigate or prosecute any alcohol or drug abuse patient.[facility] HospitalIn the event this information is protected by the Federal Confidentiality of Alcohol and Drug Abuse Patient Records regulations: The Federal rules restrict any use of the information to criminally investigate or prosecute any alcohol or drug abuse patient.[facility] HospitalIn the event this information is protected by the Federal Confidentiality of Alcohol and Drug Abuse Patient Records regulations: The Federal rules restrict any use of the information to criminally investigate or prosecute any alcohol or drug abuse patient.[facility] HospitalIn the event this information is protected by the Federal Confidentiality of Alcohol and Drug Abuse Patient Records regulations: The Federal rules restrict any use of the information to criminally investigate or prosecute any alcohol or drug abuse patient.[facility] HospitalIn the event this information is protected by the Federal Confidentiality of Alcohol and Drug Abuse Patient Records regulations: The Federal rules restrict any use of the information to criminally investigate or prosecute any alcohol or drug abuse patient.[facility] HospitalIn the event this information is protected by the Federal Confidentiality of Alcohol and Drug Abuse Patient Records regulations: The Federal rules restrict any use of the information to criminally investigate or prosecute any alcohol or drug abuse patient.[facility] HospitalIn the event this information is protected by the Federal Confidentiality of Alcohol and Drug Abuse Patient Records regulations: The Federal rules restrict any use of the information to criminally investigate or prosecute any alcohol or drug abuse patient.[facility] HospitalIn the event this information is protected by the Federal Confidentiality of Alcohol and Drug Abuse Patient Records regulations: The Federal rules restrict any use of the information to criminally investigate or prosecute any alcohol or drug abuse patient.[facility] HospitalIn the event this information is protected by the Federal Confidentiality of Alcohol and Drug Abuse Patient Records regulations: The Federal rules restrict any use of the information to criminally investigate or prosecute any alcohol or drug abuse patient.[facility] HospitalIn the event this information is protected by the Federal Confidentiality of Alcohol and Drug Abuse Patient Records regulations: The Federal rules restrict any use of the information to criminally investigate or prosecute any alcohol or drug abuse patient.[facility] HospitalIn the event this information is protected by the Federal Confidentiality of Alcohol and Drug Abuse Patient Records regulations: The Federal rules restrict any use of the information to criminally investigate or prosecute any alcohol or drug abuse patient.[facility] HospitalIn the event this information is protected by the Federal Confidentiality of Alcohol and Drug Abuse Patient Records regulations: The Federal rules restrict any use of the information to criminally investigate or prosecute any alcohol or drug abuse patient.[facility] HospitalIn the event this information is protected by the Federal Confidentiality of Alcohol and Drug Abuse Patient Records regulations: The Federal rules restrict any use of the information to criminally investigate or prosecute any alcohol or drug abuse patient.[facility] HospitalIn the event this information is protected by the Federal Confidentiality of Alcohol and Drug Abuse Patient Records regulations: The Federal rules restrict any use of the information to criminally investigate or prosecute any alcohol or drug abuse patient.[facility] HospitalIn the event this information is protected by the Federal Confidentiality of Alcohol and Drug Abuse Patient Records regulations: The Federal rules restrict any use of the information to criminally investigate or prosecute any alcohol or drug abuse patient.[facility] HospitalIn the event this information is protected by the Federal Confidentiality of Alcohol and Drug Abuse Patient Records regulations: The Federal rules restrict any use of the information to criminally investigate or prosecute any alcohol or drug abuse patient.[facility] HospitalIn the event this information is protected by the Federal Confidentiality of Alcohol and Drug Abuse Patient Records regulations: The Federal rules restrict any use of the information to criminally investigate or prosecute any alcohol or drug abuse patient.[facility] HospitalIn the event this information is protected by the Federal Confidentiality of Alcohol and Drug Abuse Patient Records regulations: The Federal rules restrict any use of the information to criminally investigate or prosecute any alcohol or drug abuse patient.[facility] HospitalIn the event this information is protected by the Federal Confidentiality of Alcohol and Drug Abuse Patient Records regulations: The Federal rules restrict any use of the information to criminally investigate or prosecute any alcohol or drug abuse patient.[facility] HospitalIn the event this information is protected by the Federal Confidentiality of Alcohol and Drug Abuse Patient Records regulations: The Federal rules restrict any use of the information to criminally investigate or prosecute any alcohol or drug abuse patient.[facility] HospitalIn the event this information is protected by the Federal Confidentiality of Alcohol and Drug Abuse Patient Records regulations: The Federal rules restrict any use of the information to criminally investigate or prosecute any alcohol or drug abuse patient.[facility] HospitalIn the event this information is protected by the Federal Confidentiality of Alcohol and Drug Abuse Patient Records regulations: The Federal rules restrict any use of the information to criminally investigate or prosecute any alcohol or drug abuse patient.[facility] HospitalIn the event this information is protected by the Federal Confidentiality of Alcohol and Drug Abuse Patient Records regulations: The Federal rules restrict any use of the information to criminally investigate or prosecute any alcohol or drug abuse patient.[facility] HospitalIn the event this information is protected by the Federal Confidentiality of Alcohol and Drug Abuse Patient Records regulations: The Federal rules restrict any use of the information to criminally investigate or prosecute any alcohol or drug abuse patient.[facility] HospitalIn the event this information is protected by the Federal Confidentiality of Alcohol and Drug Abuse Patient Records regulations: The Federal rules restrict any use of the information to criminally investigate or prosecute any alcohol or drug abuse patient.[facility] HospitalIn the event this information is protected by the Federal Confidentiality of Alcohol and Drug Abuse Patient Records regulations: The Federal rules restrict any use of the information to criminally investigate or prosecute any alcohol or drug abuse patient.[facility] HospitalIn the event this information is protected by the Federal Confidentiality of Alcohol and Drug Abuse Patient Records regulations: The Federal rules restrict any use of the information to criminally investigate or prosecute any alcohol or drug abuse patient.[facility] HospitalIn the event this information is protected by the Federal Confidentiality of Alcohol and Drug Abuse Patient Records regulations: The Federal rules restrict any use of the information to criminally investigate or prosecute any alcohol or drug abuse patient.[facility] HospitalIn the event this information is protected by the Federal Confidentiality of Alcohol and Drug Abuse Patient Records regulations: The Federal rules restrict any use of the information to criminally investigate or prosecute any alcohol or drug abuse patient.[facility] HospitalIn the event this information is protected by the Federal Confidentiality of Alcohol and Drug Abuse Patient Records regulations: The Federal rules restrict any use of the information to criminally investigate or prosecute any alcohol or drug abuse patient.[facility] HospitalIn the event this information is protected by the Federal Confidentiality of Alcohol and Drug Abuse Patient Records regulations: The Federal rules restrict any use of the information to criminally investigate or prosecute any alcohol or drug abuse patient.[facility] HospitalIn the event this information is protected by the Federal Confidentiality of Alcohol and Drug Abuse Patient Records regulations: The Federal rules restrict any use of the information to criminally investigate or prosecute any alcohol or drug abuse patient.[facility] HospitalIn the event this information is protected by the Federal Confidentiality of Alcohol and Drug Abuse Patient Records regulations: The Federal rules restrict any use of the information to criminally investigate or prosecute any alcohol or drug abuse patient.[facility] HospitalIn the event this information is protected by the Federal Confidentiality of Alcohol and Drug Abuse Patient Records regulations: The Federal rules restrict any use of the information to criminally investigate or prosecute any alcohol or drug abuse patient.[facility] HospitalIn the event this information is protected by the Federal Confidentiality of Alcohol and Drug Abuse Patient Records regulations: The Federal rules restrict any use of the information to criminally investigate or prosecute any alcohol or drug abuse patient.[facility]In the event this information is protected by the Federal Confidentiality of Alcohol and Drug Abuse Patient Records regulations: The Federal rules restrict any use of the information to criminally investigate or prosecute any alcohol or drug abuse patient.[facility] HospitalIn the event this information is protected by the Federal Confidentiality of Alcohol and Drug Abuse Patient Records regulations: The Federal rules restrict any use of the information to criminally investigate or prosecute any alcohol or drug abuse patient.[facility] HospitalIn the event this information is protected by the Federal Confidentiality of Alcohol and Drug Abuse Patient Records regulations: The Federal rules restrict any use of the information to criminally investigate or prosecute any alcohol or drug abuse patient.[facility] HospitalIn the event this information is protected by the Federal Confidentiality of Alcohol and Drug Abuse Patient Records regulations: The Federal rules restrict any use of the information to criminally investigate or prosecute any alcohol or drug abuse patient.[facility] HospitalIn the event this information is protected by the Federal Confidentiality of Alcohol and Drug Abuse Patient Records regulations: The Federal rules restrict any use of the information to criminally investigate or prosecute any alcohol or drug abuse patient.[facility] HospitalIn the event this information is protected by the Federal Confidentiality of Alcohol and Drug Abuse Patient Records regulations: The Federal rules restrict any use of the information to criminally investigate or prosecute any alcohol or drug abuse patient.[facility] HospitalIn the event this information is protected by the Federal Confidentiality of Alcohol and Drug Abuse Patient Records regulations: The Federal rules restrict any use of the information to criminally investigate or prosecute any alcohol or drug abuse patient.[facility] HospitalIn the event this information is protected by the Federal Confidentiality of Alcohol and Drug Abuse Patient Records regulations: The Federal rules restrict any use of the information to criminally investigate or prosecute any alcohol or drug abuse patient.[facility] HospitalIn the event this information is protected by the Federal Confidentiality of Alcohol and Drug Abuse Patient Records regulations: The Federal rules restrict any use of the information to criminally investigate or prosecute any alcohol or drug abuse patient.[facility] HospitalIn the event this information is protected by the Federal Confidentiality of Alcohol and Drug Abuse Patient Records regulations: The Federal rules restrict any use of the information to criminally investigate or prosecute any alcohol or drug abuse patient.[facility]In the event this information is protected by the Federal Confidentiality of Alcohol and Drug Abuse Patient Records regulations: The Federal rules restrict any use of the information to criminally investigate or prosecute any alcohol or drug abuse patient.[facility] HospitalIn the event this information is protected by the Federal Confidentiality of Alcohol and Drug Abuse Patient Records regulations: The Federal rules restrict any use of the information to criminally investigate or prosecute any alcohol or drug abuse patient.[facility] HospitalIn the event this information is protected by the Federal Confidentiality of Alcohol and Drug Abuse Patient Records regulations: The Federal rules restrict any use of the information to criminally investigate or prosecute any alcohol or drug abuse patient.[facility] HospitalIn the event this information is protected by the Federal Confidentiality of Alcohol and Drug Abuse Patient Records regulations: The Federal rules restrict any use of the information to criminally investigate or prosecute any alcohol or drug abuse patient.[facility] HospitalIn the event this information is protected by the Federal Confidentiality of Alcohol and Drug Abuse Patient Records regulations: The Federal rules restrict any use of the information to criminally investigate or prosecute any alcohol or drug abuse patient.[facility] HospitalIn the event this information is protected by the Federal Confidentiality of Alcohol and Drug Abuse Patient Records regulations: The Federal rules restrict any use of the information to criminally investigate or prosecute any alcohol or drug abuse patient.[facility] HospitalIn the event this information is protected by the Federal Confidentiality of Alcohol and Drug Abuse Patient Records regulations: The Federal rules restrict any use of the information to criminally investigate or prosecute any alcohol or drug abuse patient.[facility] HospitalIn the event this information is protected by the Federal Confidentiality of Alcohol and Drug Abuse Patient Records regulations: The Federal rules restrict any use of the information to criminally investigate or prosecute any alcohol or drug abuse patient.[facility] HospitalIn the event this information is protected by the Federal Confidentiality of Alcohol and Drug Abuse Patient Records regulations: The Federal rules restrict any use of the information to criminally investigate or prosecute any alcohol or drug abuse patient.[facility] HospitalIn the event this information is protected by the Federal Confidentiality of Alcohol and Drug Abuse Patient Records regulations: The Federal rules restrict any use of the information to criminally investigate or prosecute any alcohol or drug abuse patient.[facility] HospitalIn the event this information is protected by the Federal Confidentiality of Alcohol and Drug Abuse Patient Records regulations: The Federal rules restrict any use of the information to criminally investigate or prosecute any alcohol or drug abuse patient.[facility] HospitalIn the event this information is protected by the Federal Confidentiality of Alcohol and Drug Abuse Patient Records regulations: The Federal rules restrict any use of the information to criminally investigate or prosecute any alcohol or drug abuse patient.[facility] HospitalIn the event this information is protected by the Federal Confidentiality of Alcohol and Drug Abuse Patient Records regulations: The Federal rules restrict any use of the information to criminally investigate or prosecute any alcohol or drug abuse patient.[facility] HospitalIn the event this information is protected by the Federal Confidentiality of Alcohol and Drug Abuse Patient Records regulations: The Federal rules restrict any use of the information to criminally investigate or prosecute any alcohol or drug abuse patient.[facility] HospitalIn the event this information is protected by the Federal Confidentiality of Alcohol and Drug Abuse Patient Records regulations: The Federal rules restrict any use of the information to criminally investigate or prosecute any alcohol or drug abuse patient.[facility] HospitalIn the event this information is protected by the Federal Confidentiality of Alcohol and Drug Abuse Patient Records regulations: The Federal rules restrict any use of the information to criminally investigate or prosecute any alcohol or drug abuse patient.[facility] HospitalIn the event this information is protected by the Federal Confidentiality of Alcohol and Drug Abuse Patient Records regulations: The Federal rules restrict any use of the information to criminally investigate or prosecute any alcohol or drug abuse patient.[facility] HospitalIn the event this information is protected by the Federal Confidentiality of Alcohol and Drug Abuse Patient Records regulations: The Federal rules restrict any use of the information to criminally investigate or prosecute any alcohol or drug abuse patient.[facility] HospitalIn the event this information is protected by the Federal Confidentiality of Alcohol and Drug Abuse Patient Records regulations: The Federal rules restrict any use of the information to criminally investigate or prosecute any alcohol or drug abuse patient.[facility] HospitalIn the event this information is protected by the Federal Confidentiality of Alcohol and Drug Abuse Patient Records regulations: The Federal rules restrict any use of the information to criminally investigate or prosecute any alcohol or drug abuse patient.[facility] HospitalIn the event this information is protected by the Federal Confidentiality of Alcohol and Drug Abuse Patient Records regulations: The Federal rules restrict any use of the information to criminally investigate or prosecute any alcohol or drug abuse patient.[facility] HospitalIn the event this information is protected by the Federal Confidentiality of Alcohol and Drug Abuse Patient Records regulations: The Federal rules restrict any use of the information to criminally investigate or prosecute any alcohol or drug abuse patient.[facility] HospitalIn the event this information is protected by the Federal Confidentiality of Alcohol and Drug Abuse Patient Records regulations: The Federal rules restrict any use of the information to criminally investigate or prosecute any alcohol or drug abuse patient.[facility] HospitalIn the event this information is protected by the Federal Confidentiality of Alcohol and Drug Abuse Patient Records regulations: The Federal rules restrict any use of the information to criminally investigate or prosecute any alcohol or drug abuse patient.[facility] HospitalIn the event this information is protected by the Federal Confidentiality of Alcohol and Drug Abuse Patient Records regulations: The Federal rules restrict any use of the information to criminally investigate or prosecute any alcohol or drug abuse patient.[facility] HospitalIn the event this information is protected by the Federal Confidentiality of Alcohol and Drug Abuse Patient Records regulations: The Federal rules restrict any use of the information to criminally investigate or prosecute any alcohol or drug abuse patient.[facility] HospitalIn the event this information is protected by the Federal Confidentiality of Alcohol and Drug Abuse Patient Records regulations: The Federal rules restrict any use of the information to criminally investigate or prosecute any alcohol or drug abuse patient.[facility] HospitalIn the event this information is protected by the Federal Confidentiality of Alcohol and Drug Abuse Patient Records regulations: The Federal rules restrict any use of the information to criminally investigate or prosecute any alcohol or drug abuse patient.[facility] HospitalIn the event this information is protected by the Federal Confidentiality of Alcohol and Drug Abuse Patient Records regulations: The Federal rules restrict any use of the information to criminally investigate or prosecute any alcohol or drug abuse patient.[facility] HospitalIn the event this information is protected by the Federal Confidentiality of Alcohol and Drug Abuse Patient Records regulations: The Federal rules restrict any use of the information to criminally investigate or prosecute any alcohol or drug abuse patient.[facility] HospitalIn the event this information is protected by the Federal Confidentiality of Alcohol and Drug Abuse Patient Records regulations: The Federal rules restrict any use of the information to criminally investigate or prosecute any alcohol or drug abuse patient.[facility] HospitalIn the event this information is protected by the Federal Confidentiality of Alcohol and Drug Abuse Patient Records regulations: The Federal rules restrict any use of the information to criminally investigate or prosecute any alcohol or drug abuse patient.[facility] HospitalIn the event this information is protected by the Federal Confidentiality of Alcohol and Drug Abuse Patient Records regulations: The Federal rules restrict any use of the information to criminally investigate or prosecute any alcohol or drug abuse patient.[facility] HospitalIn the event this information is protected by the Federal Confidentiality of Alcohol and Drug Abuse Patient Records regulations: The Federal rules restrict any use of the information to criminally investigate or prosecute any alcohol or drug abuse patient.[facility] HospitalIn the event this information is protected by the Federal Confidentiality of Alcohol and Drug Abuse Patient Records regulations: The Federal rules restrict any use of the information to criminally investigate or prosecute any alcohol or drug abuse patient.[facility] HospitalIn the event this information is protected by the Federal Confidentiality of Alcohol and Drug Abuse Patient Records regulations: The Federal rules restrict any use of the information to criminally investigate or prosecute any alcohol or drug abuse patient.[facility] HospitalIn the event this information is protected by the Federal Confidentiality of Alcohol and Drug Abuse Patient Records regulations: The Federal rules restrict any use of the information to criminally investigate or prosecute any alcohol or drug abuse patient.[facility] HospitalIn the event this information is protected by the Federal Confidentiality of Alcohol and Drug Abuse Patient Records regulations: The Federal rules restrict any use of the information to criminally investigate or prosecute any alcohol or drug abuse patient.[facility] HospitalIn the event this information is protected by the Federal Confidentiality of Alcohol and Drug Abuse Patient Records regulations: The Federal rules restrict any use of the information to criminally investigate or prosecute any alcohol or drug abuse patient.[facility] HospitalIn the event this information is protected by the Federal Confidentiality of Alcohol and Drug Abuse Patient Records regulations: The Federal rules restrict any use of the information to criminally investigate or prosecute any alcohol or drug abuse patient.[facility]In the event this information is protected by the Federal Confidentiality of Alcohol and Drug Abuse Patient Records regulations: The Federal rules restrict any use of the information to criminally investigate or prosecute any alcohol or drug abuse patient.[facility] HospitalIn the event this information is protected by the Federal Confidentiality of Alcohol and Drug Abuse Patient Records regulations: The Federal rules restrict any use of the information to criminally investigate or prosecute any alcohol or drug abuse patient.[facility] HospitalIn the event this information is protected by the Federal Confidentiality of Alcohol and Drug Abuse Patient Records regulations: The Federal rules restrict any use of the information to criminally investigate or prosecute any alcohol or drug abuse patient.[facility] HospitalIn the event this information is protected by the Federal Confidentiality of Alcohol and Drug Abuse Patient Records regulations: The Federal rules restrict any use of the information to criminally investigate or prosecute any alcohol or drug abuse patient.[facility] HospitalIn the event this information is protected by the Federal Confidentiality of Alcohol and Drug Abuse Patient Records regulations: The Federal rules restrict any use of the information to criminally investigate or prosecute any alcohol or drug abuse patient.[facility] HospitalIn the event this information is protected by the Federal Confidentiality of Alcohol and Drug Abuse Patient Records regulations: The Federal rules restrict any use of the information to criminally investigate or prosecute any alcohol or drug abuse patient.[facility] HospitalIn the event this information is protected by the Federal Confidentiality of Alcohol and Drug Abuse Patient Records regulations: The Federal rules restrict any use of the information to criminally investigate or prosecute any alcohol or drug abuse patient.[facility] HospitalIn the event this information is protected by the Federal Confidentiality of Alcohol and Drug Abuse Patient Records regulations: The Federal rules restrict any use of the information to criminally investigate or prosecute any alcohol or drug abuse patient.[facility] HospitalIn the event this information is protected by the Federal Confidentiality of Alcohol and Drug Abuse Patient Records regulations: The Federal rules restrict any use of the information to criminally investigate or prosecute any alcohol or drug abuse patient.[facility] HospitalIn the event this information is protected by the Federal Confidentiality of Alcohol and Drug Abuse Patient Records regulations: The Federal rules restrict any use of the information to criminally investigate or prosecute any alcohol or drug abuse patient.[facility] HospitalIn the event this information is protected by the Federal Confidentiality of Alcohol and Drug Abuse Patient Records regulations: The Federal rules restrict any use of the information to criminally investigate or prosecute any alcohol or drug abuse patient.[facility] HospitalIn the event this information is protected by the Federal Confidentiality of Alcohol and Drug Abuse Patient Records regulations: The Federal rules restrict any use of the information to criminally investigate or prosecute any alcohol or drug abuse patient.[facility] HospitalIn the event this information is protected by the Federal Confidentiality of Alcohol and Drug Abuse Patient Records regulations: The Federal rules restrict any use of the information to criminally investigate or prosecute any alcohol or drug abuse patient.[facility] HospitalIn the event this information is protected by the Federal Confidentiality of Alcohol and Drug Abuse Patient Records regulations: The Federal rules restrict any use of the information to criminally investigate or prosecute any alcohol or drug abuse patient.[facility] HospitalIn the event this information is protected by the Federal Confidentiality of Alcohol and Drug Abuse Patient Records regulations: The Federal rules restrict any use of the information to criminally investigate or prosecute any alcohol or drug abuse patient.[facility] HospitalIn the event this information is protected by the Federal Confidentiality of Alcohol and Drug Abuse Patient Records regulations: The Federal rules restrict any use of the information to criminally investigate or prosecute any alcohol or drug abuse patient.[facility] HospitalIn the event this information is protected by the Federal Confidentiality of Alcohol and Drug Abuse Patient Records regulations: The Federal rules restrict any use of the information to criminally investigate or prosecute any alcohol or drug abuse patient.[facility] HospitalIn the event this information is protected by the Federal Confidentiality of Alcohol and Drug Abuse Patient Records regulations: The Federal rules restrict any use of the information to criminally investigate or prosecute any alcohol or drug abuse patient.[facility] HospitalIn the event this information is protected by the Federal Confidentiality of Alcohol and Drug Abuse Patient Records regulations: The Federal rules restrict any use of the information to criminally investigate or prosecute any alcohol or drug abuse patient.[facility] HospitalIn the event this information is protected by the Federal Confidentiality of Alcohol and Drug Abuse Patient Records regulations: The Federal rules restrict any use of the information to criminally investigate or prosecute any alcohol or drug abuse patient.[facility] HospitalIn the event this information is protected by the Federal Confidentiality of Alcohol and Drug Abuse Patient Records regulations: The Federal rules restrict any use of the information to criminally investigate or prosecute any alcohol or drug abuse patient.[facility] HospitalIn the event this information is protected by the Federal Confidentiality of Alcohol and Drug Abuse Patient Records regulations: The Federal rules restrict any use of the information to criminally investigate or prosecute any alcohol or drug abuse patient.[facility] HospitalIn the event this information is protected by the Federal Confidentiality of Alcohol and Drug Abuse Patient Records regulations: The Federal rules restrict any use of the information to criminally investigate or prosecute any alcohol or drug abuse patient.[facility] HospitalIn the event this information is protected by the Federal Confidentiality of Alcohol and Drug Abuse Patient Records regulations: The Federal rules restrict any use of the information to criminally investigate or prosecute any alcohol or drug abuse patient.[facility] HospitalIn the event this information is protected by the Federal Confidentiality of Alcohol and Drug Abuse Patient Records regulations: The Federal rules restrict any use of the information to criminally investigate or prosecute any alcohol or drug abuse patient.[facility] HospitalIn the event this information is protected by the Federal Confidentiality of Alcohol and Drug Abuse Patient Records regulations: The Federal rules restrict any use of the information to criminally investigate or prosecute any alcohol or drug abuse patient.[facility] HospitalIn the event this information is protected by the Federal Confidentiality of Alcohol and Drug Abuse Patient Records regulations: The Federal rules restrict any use of the information to criminally investigate or prosecute any alcohol or drug abuse patient.[facility] HospitalIn the event this information is protected by the Federal Confidentiality of Alcohol and Drug Abuse Patient Records regulations: The Federal rules restrict any use of the information to criminally investigate or prosecute any alcohol or drug abuse patient.[facility] HospitalIn the event this information is protected by the Federal Confidentiality of Alcohol and Drug Abuse Patient Records regulations: The Federal rules restrict any use of the information to criminally investigate or prosecute any alcohol or drug abuse patient.[facility] HospitalIn the event this information is protected by the Federal Confidentiality of Alcohol and Drug Abuse Patient Records regulations: The Federal rules restrict any use of the information to criminally investigate or prosecute any alcohol or drug abuse patient.[facility] HospitalIn the event this information is protected by the Federal Confidentiality of Alcohol and Drug Abuse Patient Records regulations: The Federal rules restrict any use of the information to criminally investigate or prosecute any alcohol or drug abuse patient.[facility] HospitalIn the event this information is protected by the Federal Confidentiality of Alcohol and Drug Abuse Patient Records regulations: The Federal rules restrict any use of the information to criminally investigate or prosecute any alcohol or drug abuse patient.[facility] HospitalIn the event this information is protected by the Federal Confidentiality of Alcohol and Drug Abuse Patient Records regulations: The Federal rules restrict any use of the information to criminally investigate or prosecute any alcohol or drug abuse patient.[facility] HospitalIn the event this information is protected by the Federal Confidentiality of Alcohol and Drug Abuse Patient Records regulations: The Federal rules restrict any use of the information to criminally investigate or prosecute any alcohol or drug abuse patient.[facility] HospitalIn the event this information is protected by the Federal Confidentiality of Alcohol and Drug Abuse Patient Records regulations: The Federal rules restrict any use of the information to criminally investigate or prosecute any alcohol or drug abuse patient.[facility] HospitalIn the event this information is protected by the Federal Confidentiality of Alcohol and Drug Abuse Patient Records regulations: The Federal rules restrict any use of the information to criminally investigate or prosecute any alcohol or drug abuse patient.[facility] HospitalIn the event this information is protected by the Federal Confidentiality of Alcohol and Drug Abuse Patient Records regulations: The Federal rules restrict any use of the information to criminally investigate or prosecute any alcohol or drug abuse patient.[facility] HospitalIn the event this information is protected by the Federal Confidentiality of Alcohol and Drug Abuse Patient Records regulations: The Federal rules restrict any use of the information to criminally investigate or prosecute any alcohol or drug abuse patient.[facility] HospitalIn the event this information is protected by the Federal Confidentiality of Alcohol and Drug Abuse Patient Records regulations: The Federal rules restrict any use of the information to criminally investigate or prosecute any alcohol or drug abuse patient.[facility] HospitalIn the event this information is protected by the Federal Confidentiality of Alcohol and Drug Abuse Patient Records regulations: The Federal rules restrict any use of the information to criminally investigate or prosecute any alcohol or drug abuse patient.[facility] HospitalIn the event this information is protected by the Federal Confidentiality of Alcohol and Drug Abuse Patient Records regulations: The Federal rules restrict any use of the information to criminally investigate or prosecute any alcohol or drug abuse patient.[facility] HospitalIn the event this information is protected by the Federal Confidentiality of Alcohol and Drug Abuse Patient Records regulations: The Federal rules restrict any use of the information to criminally investigate or prosecute any alcohol or drug abuse patient.[facility] HospitalIn the event this information is protected by the Federal Confidentiality of Alcohol and Drug Abuse Patient Records regulations: The Federal rules restrict any use of the information to criminally investigate or prosecute any alcohol or drug abuse patient.[facility] HospitalIn the event this information is protected by the Federal Confidentiality of Alcohol and Drug Abuse Patient Records regulations: The Federal rules restrict any use of the information to criminally investigate or prosecute any alcohol or drug abuse patient.[facility] HospitalIn the event this information is protected by the Federal Confidentiality of Alcohol and Drug Abuse Patient Records regulations: The Federal rules restrict any use of the information to criminally investigate or prosecute any alcohol or drug abuse patient.[facility] HospitalIn the event this information is protected by the Federal Confidentiality of Alcohol and Drug Abuse Patient Records regulations: The Federal rules restrict any use of the information to criminally investigate or prosecute any alcohol or drug abuse patient.[facility] HospitalIn the event this information is protected by the Federal Confidentiality of Alcohol and Drug Abuse Patient Records regulations: The Federal rules restrict any use of the information to criminally investigate or prosecute any alcohol or drug abuse patient.[facility] HospitalIn the event this information is protected by the Federal Confidentiality of Alcohol and Drug Abuse Patient Records regulations: The Federal rules restrict any use of the information to criminally investigate or prosecute any alcohol or drug abuse patient.[facility] HospitalIn the event this information is protected by the Federal Confidentiality of Alcohol and Drug Abuse Patient Records regulations: The Federal rules restrict any use of the information to criminally investigate or prosecute any alcohol or drug abuse patient.[facility] HospitalIn the event this information is protected by the Federal Confidentiality of Alcohol and Drug Abuse Patient Records regulations: The Federal rules restrict any use of the information to criminally investigate or prosecute any alcohol or drug abuse patient.[facility] ClinicIn the event this information is protected by the Federal Confidentiality of Alcohol and Drug Abuse Patient Records regulations: The Federal rules restrict any use of the information to criminally investigate or prosecute any alcohol or drug abuse patient.[facility] HospitalIn the event this information is protected by the Federal Confidentiality of Alcohol and Drug Abuse Patient Records regulations: The Federal rules restrict any use of the information to criminally investigate or prosecute any alcohol or drug abuse patient.[facility] HospitalIn the event this information is protected by the Federal Confidentiality of Alcohol and Drug Abuse Patient Records regulations: The Federal rules restrict any use of the information to criminally investigate or prosecute any alcohol or drug abuse patient.[facility] HospitalIn the event this information is protected by the Federal Confidentiality of Alcohol and Drug Abuse Patient Records regulations: The Federal rules restrict any use of the information to criminally investigate or prosecute any alcohol or drug abuse patient.[facility] HospitalIn the event this information is protected by the Federal Confidentiality of Alcohol and Drug Abuse Patient Records regulations: The Federal rules restrict any use of the information to criminally investigate or prosecute any alcohol or drug abuse patient.[facility] HospitalIn the event this information is protected by the Federal Confidentiality of Alcohol and Drug Abuse Patient Records regulations: The Federal rules restrict any use of the information to criminally investigate or prosecute any alcohol or drug abuse patient.[facility] HospitalIn the event this information is protected by the Federal Confidentiality of Alcohol and Drug Abuse Patient Records regulations: The Federal rules restrict any use of the information to criminally investigate or prosecute any alcohol or drug abuse patient.[facility] HospitalIn the event this information is protected by the Federal Confidentiality of Alcohol and Drug Abuse Patient Records regulations: The Federal rules restrict any use of the information to criminally investigate or prosecute any alcohol or drug abuse patient.[facility] HospitalIn the event this information is protected by the Federal Confidentiality of Alcohol and Drug Abuse Patient Records regulations: The Federal rules restrict any use of the information to criminally investigate or prosecute any alcohol or drug abuse patient.[facility] HospitalIn the event this information is protected by the Federal Confidentiality of Alcohol and Drug Abuse Patient Records regulations: The Federal rules restrict any use of the information to criminally investigate or prosecute any alcohol or drug abuse patient.[facility] HospitalIn the event this information is protected by the Federal Confidentiality of Alcohol and Drug Abuse Patient Records regulations: The Federal rules restrict any use of the information to criminally investigate or prosecute any alcohol or drug abuse patient.[facility] HospitalIn the event this information is protected by the Federal Confidentiality of Alcohol and Drug Abuse Patient Records regulations: The Federal rules restrict any use of the information to criminally investigate or prosecute any alcohol or drug abuse patient.[facility] HospitalIn the event this information is protected by the Federal Confidentiality of Alcohol and Drug Abuse Patient Records regulations: The Federal rules restrict any use of the information to criminally investigate or prosecute any alcohol or drug abuse patient.[facility] HospitalIn the event this information is protected by the Federal Confidentiality of Alcohol and Drug Abuse Patient Records regulations: The Federal rules restrict any use of the information to criminally investigate or prosecute any alcohol or drug abuse patient.[facility] HospitalIn the event this information is protected by the Federal Confidentiality of Alcohol and Drug Abuse Patient Records regulations: The Federal rules restrict any use of the information to criminally investigate or prosecute any alcohol or drug abuse patient.[facility] HospitalIn the event this information is protected by the Federal Confidentiality of Alcohol and Drug Abuse Patient Records regulations: The Federal rules restrict any use of the information to criminally investigate or prosecute any alcohol or drug abuse patient.[facility] HospitalIn the event this information is protected by the Federal Confidentiality of Alcohol and Drug Abuse Patient Records regulations: The Federal rules restrict any use of the information to criminally investigate or prosecute any alcohol or drug abuse patient.[facility] HospitalIn the event this information is protected by the Federal Confidentiality of Alcohol and Drug Abuse Patient Records regulations: The Federal rules restrict any use of the information to criminally investigate or prosecute any alcohol or drug abuse patient.[facility] HospitalIn the event this information is protected by the Federal Confidentiality of Alcohol and Drug Abuse Patient Records regulations: The Federal rules restrict any use of the information to criminally investigate or prosecute any alcohol or drug abuse patient.[facility] HospitalIn the event this information is protected by the Federal Confidentiality of Alcohol and Drug Abuse Patient Records regulations: The Federal rules restrict any use of the information to criminally investigate or prosecute any alcohol or drug abuse patient.[facility] HospitalIn the event this information is protected by the Federal Confidentiality of Alcohol and Drug Abuse Patient Records regulations: The Federal rules restrict any use of the information to criminally investigate or prosecute any alcohol or drug abuse patient.[facility] HospitalIn the event this information is protected by the Federal Confidentiality of Alcohol and Drug Abuse Patient Records regulations: The Federal rules restrict any use of the information to criminally investigate or prosecute any alcohol or drug abuse patient.[facility] HospitalIn the event this information is protected by the Federal Confidentiality of Alcohol and Drug Abuse Patient Records regulations: The Federal rules restrict any use of the information to criminally investigate or prosecute any alcohol or drug abuse patient.[facility] HospitalIn the event this information is protected by the Federal Confidentiality of Alcohol and Drug Abuse Patient Records regulations: The Federal rules restrict any use of the information to criminally investigate or prosecute any alcohol or drug abuse patient.[facility] HospitalIn the event this information is protected by the Federal Confidentiality of Alcohol and Drug Abuse Patient Records regulations: The Federal rules restrict any use of the information to criminally investigate or prosecute any alcohol or drug abuse patient.[facility] HospitalIn the event this information is protected by the Federal Confidentiality of Alcohol and Drug Abuse Patient Records regulations: The Federal rules restrict any use of the information to criminally investigate or prosecute any alcohol or drug abuse patient.[facility] HospitalIn the event this information is protected by the Federal Confidentiality of Alcohol and Drug Abuse Patient Records regulations: The Federal rules restrict any use of the information to criminally investigate or prosecute any alcohol or drug abuse patient.[facility] HospitalIn the event this information is protected by the Federal Confidentiality of Alcohol and Drug Abuse Patient Records regulations: The Federal rules restrict any use of the information to criminally investigate or prosecute any alcohol or drug abuse patient.[facility] HospitalIn the event this information is protected by the Federal Confidentiality of Alcohol and Drug Abuse Patient Records regulations: The Federal rules restrict any use of the information to criminally investigate or prosecute any alcohol or drug abuse patient.[facility] HospitalIn the event this information is protected by the Federal Confidentiality of Alcohol and Drug Abuse Patient Records regulations: The Federal rules restrict any use of the information to criminally investigate or prosecute any alcohol or drug abuse patient.[facility] HospitalIn the event this information is protected by the Federal Confidentiality of Alcohol and Drug Abuse Patient Records regulations: The Federal rules restrict any use of the information to criminally investigate or prosecute any alcohol or drug abuse patient.[facility] HospitalIn the event this information is protected by the Federal Confidentiality of Alcohol and Drug Abuse Patient Records regulations: The Federal rules restrict any use of the information to criminally investigate or prosecute any alcohol or drug abuse patient.[facility] HospitalIn the event this information is protected by the Federal Confidentiality of Alcohol and Drug Abuse Patient Records regulations: The Federal rules restrict any use of the information to criminally investigate or prosecute any alcohol or drug abuse patient.[facility] HospitalIn the event this information is protected by the Federal Confidentiality of Alcohol and Drug Abuse Patient Records regulations: The Federal rules restrict any use of the information to criminally investigate or prosecute any alcohol or drug abuse patient.[facility] HospitalIn the event this information is protected by the Federal Confidentiality of Alcohol and Drug Abuse Patient Records regulations: The Federal rules restrict any use of the information to criminally investigate or prosecute any alcohol or drug abuse patient.[facility] HospitalIn the event this information is protected by the Federal Confidentiality of Alcohol and Drug Abuse Patient Records regulations: The Federal rules restrict any use of the information to criminally investigate or prosecute any alcohol or drug abuse patient.[facility] HospitalIn the event this information is protected by the Federal Confidentiality of Alcohol and Drug Abuse Patient Records regulations: The Federal rules restrict any use of the information to criminally investigate or prosecute any alcohol or drug abuse patient.[facility] HospitalIn the event this information is protected by the Federal Confidentiality of Alcohol and Drug Abuse Patient Records regulations: The Federal rules restrict any use of the information to criminally investigate or prosecute any alcohol or drug abuse patient.[facility] HospitalIn the event this information is protected by the Federal Confidentiality of Alcohol and Drug Abuse Patient Records regulations: The Federal rules restrict any use of the information to criminally investigate or prosecute any alcohol or drug abuse patient.[facility] HospitalIn the event this information is protected by the Federal Confidentiality of Alcohol and Drug Abuse Patient Records regulations: The Federal rules restrict any use of the information to criminally investigate or prosecute any alcohol or drug abuse patient.[facility] HospitalIn the event this information is protected by the Federal Confidentiality of Alcohol and Drug Abuse Patient Records regulations: The Federal rules restrict any use of the information to criminally investigate or prosecute any alcohol or drug abuse patient.[facility] HospitalIn the event this information is protected by the Federal Confidentiality of Alcohol and Drug Abuse Patient Records regulations: The Federal rules restrict any use of the information to criminally investigate or prosecute any alcohol or drug abuse patient.[facility] HospitalIn the event this information is protected by the Federal Confidentiality of Alcohol and Drug Abuse Patient Records regulations: The Federal rules restrict any use of the information to criminally investigate or prosecute any alcohol or drug abuse patient.[facility] HospitalIn the event this information is protected by the Federal Confidentiality of Alcohol and Drug Abuse Patient Records regulations: The Federal rules restrict any use of the information to criminally investigate or prosecute any alcohol or drug abuse patient.[facility] HospitalIn the event this information is protected by the Federal Confidentiality of Alcohol and Drug Abuse Patient Records regulations: The Federal rules restrict any use of the information to criminally investigate or prosecute any alcohol or drug abuse patient.[facility] HospitalIn the event this information is protected by the Federal Confidentiality of Alcohol and Drug Abuse Patient Records regulations: The Federal rules restrict any use of the information to criminally investigate or prosecute any alcohol or drug abuse patient.[facility] HospitalIn the event this information is protected by the Federal Confidentiality of Alcohol and Drug Abuse Patient Records regulations: The Federal rules restrict any use of the information to criminally investigate or prosecute any alcohol or drug abuse patient.[facility] HospitalIn the event this information is protected by the Federal Confidentiality of Alcohol and Drug Abuse Patient Records regulations: The Federal rules restrict any use of the information to criminally investigate or prosecute any alcohol or drug abuse patient.[facility] HospitalIn the event this information is protected by the Federal Confidentiality of Alcohol and Drug Abuse Patient Records regulations: The Federal rules restrict any use of the information to criminally investigate or prosecute any alcohol or drug abuse patient.[facility] HospitalIn the event this information is protected by the Federal Confidentiality of Alcohol and Drug Abuse Patient Records regulations: The Federal rules restrict any use of the information to criminally investigate or prosecute any alcohol or drug abuse patient.[facility] ClinicIn the event this information is protected by the Federal Confidentiality of Alcohol and Drug Abuse Patient Records regulations: The Federal rules restrict any use of the information to criminally investigate or prosecute any alcohol or drug abuse patient.[facility] HospitalIn the event this information is protected by the Federal Confidentiality of Alcohol and Drug Abuse Patient Records regulations: The Federal rules restrict any use of the information to criminally investigate or prosecute any alcohol or drug abuse patient.[facility] HospitalIn the event this information is protected by the Federal Confidentiality of Alcohol and Drug Abuse Patient Records regulations: The Federal rules restrict any use of the information to criminally investigate or prosecute any alcohol or drug abuse patient.[facility] HospitalIn the event this information is protected by the Federal Confidentiality of Alcohol and Drug Abuse Patient Records regulations: The Federal rules restrict any use of the information to criminally investigate or prosecute any alcohol or drug abuse patient.[facility] HospitalIn the event this information is protected by the Federal Confidentiality of Alcohol and Drug Abuse Patient Records regulations: The Federal rules restrict any use of the information to criminally investigate or prosecute any alcohol or drug abuse patient.[facility] Care Teams (unrecognized sec tion and content) Team Status: Active Member Role Status Dates Dr. Francisco Bahena MD Primary Care Provider Active Team Status: Inactive Member Role Status Dates Dr. Francisco Bahena MD Primary Care Provider Active Start: January 08, 2025 End: January 10, 2025 Dr. Hector Baxter MD Emergency Provider Active Start: January 08, 2025 End: January 10, 2025 Dr. Keyana Aldana MD Admit Provider Active St art: January 08, 2025 End: January 10, 2025 Dr. Keyana Aldana MD Other Provider Active St art: January 08, 2025 End: January 10, 2025 Dr. Christoph Kilgore MD Attending Provider Active Start: January 08, 2025 End: January 10, 2025 Team Status: Active Member Role Status Dates Dr. Francisco Bahena MD Primary Care Provider Active Start: January 09, 2025 Dr. Hector Baxter MD Emergency Provider Active Start: January 09, 2025 Dr. Keyana Aldana MD Admit Provider Active St art: January 09, 2025 Dr. Keyana Aldana MD Other Provider Active St art: January 09, 2025 Dr. Christoph Kilgore MD Attending Provider Active Start: January 09, 2025 Dr. Christoph Kilgore MD Other Provider Active Start: January 09, 2025 It Systems Analyst Consultant Relationship Specialty Start Date End Date Francisco Bahena MD [address] [place] [address] PCP - General Family Practice 03/02/21 It Systems Analyst Consultant Relationship Specialty Start Date End Date Francisco Bahena MD [address] [facility] [address] PCP - General Family Practice 03/02/21 It Systems Analyst Consultant Relationship Specialty Start Date End Date Francisco Bahena MD [facility] [address] PCP - General Family Practice 03/02/21 It Systems Analyst Consultant Relationship Specialty Start Date End Date Francisco Bahena MD [address] [place] [address] [place] [address] PCP - General Family Practice 03/02/21 It Systems Analyst Consultant Relationship Specialty Start Date End Date Francisco Bahena MD [address] [place] [address] [place] [address] PCP - General Family Practice 03/02/21 It Systems Analyst Consultant Relationship Specialty Start Date End Date Francisco Bahena MD [address] [place] [address] [place] [address] PCP - General Family Practice 03/02/21 It Systems Analyst Consultant Relationship Specialty Start Date End Date Francisco Bahena MD [address] [place] [address] [place] [address] PCP - General Family Practice 03/02/21 It Systems Analyst Consultant Relationship Specialty Start Date End Date Francisco Bahena MD [address] [place] [address], [place] [address] PCP - General Family Practice 03/02/21 It Systems Analyst Consultant Relationship Specialty Start Date End Date Francisco Bahena MD [address] [place] [address], [place] [address] PCP - General Family Practice 03/02/21 It Systems Analyst Consultant Relationship Specialty Start Date End Date Francisco Bahena MD [address] [place] [address] PCP - General Family Practice 03/02/21 It Systems Analyst Consultant Relationship Specialty Start Date End Date Francisco Bahena MD [address] [facility] [place] [address] PCP - General Family Practice 03/02/21 It Systems Analyst Consultant Relationship Specialty Start Date End Date Francisco Bahena MD [address] [facility] [address] PCP - General Family Practice 03/02/21 It Systems Analyst Consultant Relationship Specialty Start Date End Date Francisco Bahena MD [address] [facility] [place] [address] PCP - General Family Practice 03/02/21 It Systems Analyst Consultant Relationship Specialty Start Date End Date Francisco Bahena MD [address] [facility] [address] PCP - General Family Medicine 03/02/21 [facility] [place] [facility] [address] [place] [address] Referring Gastroenterology 06/15/22 It Systems Analyst Consultant Relationship Specialty Start Date End Date Francisco Bahena MD [address] [facility] [address] PCP - General Family Medicine 03/02/21 Alok [place] [facility] [address] [place] [address] Referring Gastroenterology 06/15/22 It Systems Analyst Consultant Relationship Specialty Start Date End Date Francisco Bahena MD [address] [facility] [address] PCP - General Family Medicine 03/02/21 Alok [place] [facility] [address] [place] [address] Referring Gastroenterology 06/15/22 It Systems Analyst Consultant Relationship Specialty Start Date End Date Francisco Bahena MD [address] [place] [address] PCP - General Family Medicine 03/02/21 Alok [place] [address] [place] [address] [place] [address] Referring Gastroenterology 06/15/22 It Systems Analyst Consultant Relationship Specialty Start Date End Date Francisco Bahena MD [address] [place] [address] PCP - General Family Medicine 03/02/21 Alok [place] [address] [place] [address] [place] [address] Referring Gastroenterology 06/15/22 It Systems Analyst Consultant Relationship Specialty Start Date End Date Francisco Bahena MD [address] [facility] [place] [address] PCP - General Family Medicine 03/02/21 Alok [place] [address] [place] [address] [place] [address] Referring Gastroenterology 06/15/22 It Systems Analyst Consultant Relationship Specialty Start Date End Date Francisco Bahena MD [address] [place] [address] PCP - General Family Medicine 03/02/21 Alok [place] [address] [place] [address] [place] [address] Referring Gastroenterology 06/15/22 It Systems Analyst Consultant Relationship Specialty Start Date End Date Francisco Bahena MD [address] [facility] [place] [address] PCP - General Family Medicine 03/02/21 Alok [place] [address] [place] [address] [place] [address] Referring Gastroenterology 06/15/22 It Systems Analyst Consultant Relationship Specialty Start Date End Date Francisco Bahena MD [address] [place] [address] PCP - General Family Medicine 03/02/21 Alok [place] [address] [place] [address] [place] [address] Referring Gastroenterology 06/15/22 It Systems Analyst Consultant Relationship Specialty Start Date End Date Francisco Bahena MD [address] [facility] [place] [address] PCP - General Family Medicine 03/02/21 Alok [place] [address] [place] [address] [place] [address] Referring Gastroenterology 06/15/22 It Systems Analyst Consultant Relationship Specialty Start Date End Date Francisco Bahena MD [address] [facility] [place] [address] PCP - General Family Medicine 03/02/21 Alok [place] [address] [place] [address] [place] [address] Referring Gastroenterology 06/15/22 It Systems Analyst Consultant Relationship Specialty Start Date End Date Francisco Bahena MD [address] [facility] [place] [address] PCP - General Family Medicine 03/02/21 Alok [place] [address] [place] [address] [place] [address] Referring Gastroenterology 06/15/22 It Systems Analyst Consultant Relationship Specialty Start Date End Date Francisco Bahena MD [address] [facility] [place] [address] PCP - General Family Medicine 03/02/21 Alok [place] [address] [place] [address] [place] [address] Referring Gastroenterology 06/15/22 [place] [address] [place] [address] Thoracic Surgery 07/15/22 It Systems Analyst Consultant Relationship Specialty Start Date End Date Francisco Bahena MD [address] [facility] [place] [address] PCP - General Family Medicine [facility]02[facility] [place] [facility] [address] [place] [address] Referring Gastroenterology 06/15/22 [place] [address] [facility] [place] [address] Thoracic Surgery 07/15/22 It Systems Analyst Consultant Relationship Specialty Start Date End Date Francisco Bahena MD [address] [facility] [place] [address] PCP - General Family Medicine 03/02/21 Alok Marroquin [facility] [address] [place] [address] Referring Gastroenterology 06/15/22 [place] [address] [facility] [place] [address] Thoracic Surgery 07/15/22 It Systems Analyst Consultant Relationship Specialty Start Date End Date Francisco Bahena MD [address] [facility] [place] [address] PCP - General Family Medicine 03/02/21 Alok Marroquin [facility] [address] [place] [address] Referring Gastroenterology 06/15/22 [place] [address] [facility] [place] [address] Thoracic Surgery 07/15/22 It Systems Analyst Consultant Relationship Specialty Start Date End Date Francisco Bahena MD [address] [facility] [place] [address] PCP - General Family Medicine 03/02/21 [facility] [facility] [address] [place] [address] Referring Gastroenterology 06/15/22 [place] [address] [place] [address] Thoracic Surgery 07/15/22 It Systems Analyst Consultant Relationship Specialty Start Date End Date Francisco Bahena MD [address] [facility] [place] [address] PCP - General Family Medicine 03/02/21 Alok [facility] [address] [place] [address] Referring Gastroenterology 06/15/22 [place] [address] [place] [address] Thoracic Surgery 07/15/22 It Systems Analyst Consultant Relationship Specialty Start Date End Date Francisco Bahena MD [address] [facility] [place] [address] PCP - General Family Medicine 03/02/21 [facility] [address] [place] [address] Referring Gastroenterology 06/15/22 [place] [address] [place] [address] Thoracic Surgery 07/15/22 It Systems Analyst Consultant Relationship Specialty Start Date End Date Francisco Bahena MD [address] [facility] [address] PCP - General Family Medicine 03/02/21 [facility] [facility] [address] [place] [address] Referring Gastroenterology 06/15/22 [place] [address] [place] [address] Thoracic Surgery 07/15/22 It Systems Analyst Consultant Relationship Specialty Start Date End Date Francisco Bahena MD [address] [place] [address] PCP - General Family Medicine 03/02/21 [facility] [address] [place] [address] Referring Gastroenterology 06/15/22 [place] [address] [place] [address] Thoracic Surgery 07/15/22 Dorothy Stuart, [facility] [address] [place] [address] Transitional Care Pharmacist Pharmacy 08/04/22 09/02/22 It Systems Analyst Consultant Relationship Specialty Start Date End Date Francisco Bahena MD [address] [place] [address] PCP - General Family Medicine 03/02/21 Alok [facility] [address] [place] [address] Referring Gastroenterology 06/15/22 [place] [address] [place] [address] Thoracic Surgery 07/15/22 Dorothy Stuart, [facility] [address] [place] [address] Transitional Care Pharmacist Pharmacy 08/04/22 09/02/22 It Systems Analyst Consultant Relationship Specialty Start Date End Date Francisco Bahena MD [address] [place] [address] PCP - General Family Medicine 03/02/21 Alok [facility] [address] [place] [address] Referring Gastroenterology 06/15/22 [place] [address] [place] [address] Thoracic Surgery 07/15/22 [facility] [address] [place] [address] Transitional Care Pharmacist Pharmacy 08/04/22 09/02/22 It Systems Analyst Consultant Relationship Specialty Start Date End Date Francisco Bahena MD [address] [place] [address] PCP - General Family Medicine 03/02/21 Alok [facility] [address] [place] [address] Referring Gastroenterology 06/15/22 [place] [address] [place] [address] Thoracic Surgery 07/15/22 Dorothy Stuart, [facility] [address] [place] [address] Transitional Care Pharmacist Pharmacy 08/04/22 09/02/22 It Systems Analyst Consultant Relationship Specialty Start Date End Date Francisco Bahena MD [address] [place] [address] PCP - General Family Medicine 03/02/21 Alok [facility] [address] [place] [address] Referring Gastroenterology 06/15/22 [place] [address] [place] [address] Thoracic Surgery 07/15/22 Dorothy Stuart, [facility] [address] [place] [address] Transitional Care Pharmacist Pharmacy 08/04/22 09/02/22 It Systems Analyst Consultant Relationship Specialty Start Date End Date Francisco Bahena MD [address] [place] [address] PCP - General Family Medicine 03/02/21 Alok Marroquin [facility] [address] [place] [address] Referring Gastroenterology 06/15/22 [place] [address] [place] [address] Thoracic Surgery 07/15/22 [facility] [address] [place] [address] Transitional Care Pharmacist Pharmacy 08/04/22 09/02/22 It Systems Analyst Consultant Relationship Specialty Start Date End Date Francisco Bahena MD [address] [place] [address] PCP - General Family Medicine 03/02/21 Alok Marroquin [facility] [address] [place] [address] Referring Gastroenterology 06/15/22 [place] [address] [place] [address] Thoracic Surgery 07/15/22 Dorothy Stuart, [facility] [address] [place] [address] Transitional Care Pharmacist Pharmacy 08/04/22 09/02/22 It Systems Analyst Consultant Relationship Specialty Start Date End Date Francisco Bahena MD [address] [place] [address] PCP - General Family Medicine 03/02/21 Alok [facility] [address] [place] [address] Referring Gastroenterology 06/15/22 [place] [address] [place] [address] Thoracic Surgery 07/15/22 Dorothy Stuart, [facility] [address] [place] [address] Transitional Care Pharmacist Pharmacy 08/04/22 09/02/22 It Systems Analyst Consultant Relationship Specialty Start Date End Date Francisco Bahena MD [address] [place] [address] PCP - General Family Medicine 03/02/21 Alok [facility] [address] [place] [address] Referring Gastroenterology 06/15/22 [place] [address] [place] [address] Thoracic Surgery 07/15/22 Dorothy Stuart, [facility] [address] [place] [address] Transitional Care Pharmacist Pharmacy 08/04/22 09/02/22 It Systems Analyst Consultant Relationship Specialty Start Date End Date Francisco Bahena MD [address] [place] [address] PCP - General Family Medicine 03/02/21 Alok [facility] [address] [place] [address] Referring Gastroenterology 06/15/22 [place] [address] [place] [address] Thoracic Surgery 07/15/22 Dorothy Stuart, [facility] [address] [place] [address] Transitional Care Pharmacist Pharmacy 08/04/22 09/02/22 It Systems Analyst Consultant Relationship Specialty Start Date End Date Francisco Bahena MD [address] [place] [address] PCP - General Family Medicine 03/02/21 [place] [facility] [address] [place] [address] Referring Gastroenterology 06/15/22 [place] [address] [place] [address] Thoracic Surgery 07/15/22 [facility] [address] [place] [address] Transitional Care Pharmacist Pharmacy 08/04/22 09/02/22 It Systems Analyst Consultant Relationship Specialty Start Date End Date Francisco Bahena MD [address] [place] [address] PCP - General Family Medicine 03/02/21 [address] [address] Referring Gastroenterology 06/15/22 [place] [address] [place] [address] Thoracic Surgery 07/15/22 Dorothy Stuart, [facility] [address] [place] [address] Transitional Care Pharmacist Pharmacy 08/04/22 09/02/22 It Systems Analyst Consultant Relationship Specialty Start Date End Date Francisco Bahena MD [address] [facility] [address] PCP - General Family Medicine 03/02/21 Alok [facility] [address] [place] [address] Referring Gastroenterology 06/15/22 [place] [address] [facility] [place] [address] Thoracic Surgery 07/15/22 It Systems Analyst Consultant Relationship Specialty Start Date End Date Francisco Bahena MD [address] [facility] [address] PCP - General Family Medicine 03/02/21 Alok [facility] [address] [place] [address] Referring Gastroenterology 06/15/22 [place] [address] [place] [address] Thoracic Surgery 07/15/22 It Systems Analyst Consultant Relationship Specialty Start Date End Date Francisco Bahena MD [address] [facility] [address] PCP - General Family Medicine 03/02/21 Alok [facility] [place] [address] Referring Gastroenterology 06/15/22 [place] [address] [place] [address] Thoracic Surgery 07/15/22 It Systems Analyst Consultant Relationship Specialty Start Date End Date Francisco Bahena MD [address] [facility] [address] PCP - General Family Medicine 03/02/21 Alok [facility] [address] [place] [address] Referring Gastroenterology 06/15/22 [place] [address] [facility] [place] [address] Thoracic Surgery 07/15/22 It Systems Analyst Consultant Relationship Specialty Start Date End Date Francisco Bahena MD [address] [facility] [address] PCP - General Family Medicine 03/02/21 Alok Marroquin [facility] [address] [place] [address] Referring Gastroenterology 06/15/22 [place] [address] [place] [address] Thoracic Surgery 07/15/22 It Systems Analyst Consultant Relationship Specialty Start Date End Date Francisco Bahena MD [address] [facility] [address] PCP - General Family Medicine 03/02/21 Alok Marroquin [facility] [address] [place] [address] Referring Gastroenterology 06/15/22 [place] [address] [facility] [address] Thoracic Surgery 07/15/22 It Systems Analyst Consultant Relationship Specialty Start Date End Date Francisco Bahena MD [address] [facility] [address] PCP - General Family Medicine 03/02/21 Alok Marroquin [facility] [address] [place] [address] Referring Gastroenterology 06/15/22 [place] [address] [place] [address] Thoracic Surgery 07/15/22 It Systems Analyst Consultant Relationship Specialty Start Date End Date Francisco Bahena MD [address] [facility] [address] PCP - General Family Medicine 03/02/21 Alok [facility] [address] [place] [address] Referring Gastroenterology 06/15/22 [place] [address] [place] [address] Thoracic Surgery 07/15/22 It Systems Analyst Consultant Relationship Specialty Start Date End Date Francisco Bahena MD [address] [facility] [address] PCP - General Family Medicine 03/02/21 Alok [facility] [address] [place] [address] Referring Gastroenterology 06/15/22 [place] [address] [place] [address] Thoracic Surgery 07/15/22 It Systems Analyst Consultant Relationship Specialty Start Date End Date Francisco Bahena MD [address] [facility] [address] PCP - General Family Medicine 03/02/21 Alok [facility] [place] [address] Referring Gastroenterology 06/15/22 [place] [address] [place] [address] Thoracic Surgery 07/15/22 It Systems Analyst Consultant Relationship Specialty Start Date End Date Francisco Bahena MD [address] [facility] [address] PCP - General Family Medicine 03/02/21 Alok Marroquin [facility] [address] [place] [address] Referring Gastroenterology 06/15/22 [place] [address] [place] [address] Thoracic Surgery 07/15/22 It Systems Analyst Consultant Relationship Specialty Start Date End Date Francisco Bahena MD [address] [place] [address] PCP - General Family Medicine 03/02/21 Alok Marroquin [facility] [address] [place] [address] Referring Gastroenterology 06/15/22 [place] [address] [place] [address] Thoracic Surgery 07/15/22 Team Status: Active Member Role Status Dates Dr. Lisandro Alvarado III, MD Family Provider Active Dr. Francisco Bahena MD Primary Care Provider Active Team Status: Inactive Member Role Status Dates Dr. Francisco Bahena MD Primary Care Provider Active Dr. Ellis Villanueva MD Attending Provider, Emergency Pr ovider Active Team Status: Inactive Member Role Status Dates Dr. Francisco Bahena MD Primary Care Provider, Referri ng Provider Active Dr. Marlo Echevarria DO Emergency Provider Active It Systems Analyst Consultant Relationship Specialty Start Date End Date Francisco Bahena MD [address] [place] [address] PCP - General Family Medicine 03/02/21 Al[facility] [address] [place] [address] Referring Gastroenterology 06/15/22 [place] [address] [facility] [place], [place] [address] Thoracic Surgery 07/15/22 It Systems Analyst Consultant Relationship Specialty Start Date End Date Francisco Bahena MD [address] [place], [place] [phone] PCP - General Family Medicine 03/02/21 Alok [facility] [address] [place] [address] Referring Gastroenterology 06/15/22 [place] [address] [place] [address] Thoracic Surgery 07/15/22 It Systems Analyst Consultant Relationship Specialty Start Date End Date Francisco Bahena MD [address] [facility] [address] PCP - General Family Medicine 03/02/21 Alok Marroquin [facility] [address] [place] [address] Referring Gastroenterology 06/15/22 [place] [address] [facility] [address] Thoracic Surgery 07/15/22 It Systems Analyst Consultant Relationship Specialty Start Date End Date Francisco Bahena MD [address] [facility] [address] PCP - General Family Medicine 03/02/21 Alok Marroquin [address] [facility] [place] [address] Referring Gastroenterology 06/15/22 [place] [address] [place] [address] Thoracic Surgery 07/15/22 It Systems Analyst Consultant Relationship Specialty Start Date End Date Francisco Bahena MD [address] [facility] [address] PCP - General Family Medicine 03/02/21 Alok Marroquin [address] [facility] [place] [address] Referring Gastroenterology 06/15/22 [place] [address] [place] [address] Thoracic Surgery 07/15/22 It Systems Analyst Consultant Relationship Specialty Start Date End Date Francisco Bahena MD [address] [place] [address] PCP - General Family Medicine 03/02/21 Alok Marroquin [address] [place] [address] Referring Gastroenterology 06/15/22 [place] [address] [facility] [place] [address] Thoracic Surgery 07/15/22 It Systems Analyst Consultant Relationship Specialty Start Date End Date Francisco Bahena MD [address] [place] [address] PCP - General Family Medicine 03/02/21 Alok Marroquin [address] [place] [address] Referring Gastroenterology 06/15/22 [place] [address] [facility] [address] Thoracic Surgery 07/15/22 It Systems Analyst Consultant Relationship Specialty Start Date End Date Francisco Bahena MD [address] [place] [address] PCP - General Family Medicine 03/02/21 Alok Marroquin [address] [place] [address] Referring Gastroenterology 06/15/22 [place] [address] [facility] [place] [address] Thoracic Surgery 07/15/22 It Systems Analyst Consultant Relationship Specialty Start Date End Date Francisco Bahena MD [address] [facility] [address] PCP - General Family Medicine 03/02/21 Alok Marroquin [address] [facility] [place] [address] Referring Gastroenterology 06/15/22 [place] [address] [place] [address] Thoracic Surgery 07/15/22 It Systems Analyst Consultant Relationship Specialty Start Date End Date Francisco Bahena MD 0 [place] [address] PCP - General Family Medicine 03/02/21 Alok Marroquin [address] [place] [address] Referring Gastroenterology 06/15/22 [place] [address] [place] [address] Thoracic Surgery 07/15/22 It Systems Analyst Consultant Relationship Specialty Start Date End Date Francisco Bahena MD [address] [facility] [address] PCP - General Family Medicine 03/02/21 Alok Marroquin [address] [facility] [address] Referring Gastroenterology 06/15/22 [place] [address] [place] [address] Thoracic Surgery 07/15/22 It Systems Analyst Consultant Relationship Specialty Start Date End Date Francisco Bahena MD [address] [facility] [address] PCP - General Family Medicine 03/02/21 Alok Marroquin [address] [place] [address] Referring Gastroenterology 06/15/22 [place] [address] [place] [address] Thoracic Surgery 07/15/22 It Systems Analyst Consultant Relationship Specialty Start Date End Date Francisco Bahena MD [address] [place] [address] PCP - General Family Medicine 03/02/21 Alok Marroquin [address] [place] [address] Referring Gastroenterology 06/15/22 [place] [address] [place] [address] Thoracic Surgery 07/15/22 It Systems Analyst Consultant Relationship Specialty Start Date End Date Francisco Bahena MD [address] [place] [address] PCP - General Family Medicine 03/02/21 Alok Marroquin [address] [place] [address] Referring Gastroenterology 06/15/22 [place] [address] [place] [address] Thoracic Surgery 07/15/22 It Systems Analyst Consultant Relationship Specialty Start Date End Date Francisco Bahena MD [address] [facility] [address] PCP - General Family Medicine 03/02/21 Alok Marroquin MD [address] [place] [address] Referring Gastroenterology 06/15/22 [place] [address] [facility] [place] [place], [place] [phone] Thoracic Surgery 07/15/22 It Systems Analyst Consultant Relationship Specialty Start Date End Date Francisco Bahena MD 0 [place] [address] PCP - General Family Medicine 03/02/21 Alok Marroquin MD [address]40 [facility] [address] Referring Gastroenterology 06/15/22 [place] [address] [place] [address] Thoracic Surgery 07/15/22 It Systems Analyst Consultant Relationship Specialty Start Date End Date Francisco Bahena MD [address] [place] [address] PCP - General Family Medicine 03/02/21 Alok Marroquin MD [address]40 [facility] [place] [address] Referring Gastroenterology 06/15/22 [place] [address] [place] [address] Thoracic Surgery 07/15/22 It Systems Analyst Consultant Relationship Specialty Start Date End Date Francisco Bahena MD [address] [facility] [address] PCP - General Family Medicine 03/02/21 Alok Marroquin MD [address] [place] [address] Referring Gastroenterology 06/15/22 [place] [address] [place] [address] Thoracic Surgery 07/15/22 It Systems Analyst Consultant Relationship Specialty Start Date End Date Francisco Bahena MD [address] [place] [address] PCP - General Family Medicine 03/02/21 Alok Marroquin MD [address] [place] [address] Referring Gastroenterology 06/15/22 [place] [address] [place] [address] Thoracic Surgery 07/15/22 It Systems Analyst Consultant Relationship Specialty Start Date End Date Francisco Bahena MD [address] [place] [address] PCP - General Family Medicine 03/02/21 Alok Marroquin MD [address] [place] [address] Referring Gastroenterology 06/15/22 [place] [address] [place] [address] Thoracic Surgery 07/15/22 It Systems Analyst Consultant Relationship Specialty Start Date End Date Francisco Bahena MD [address] [facility] [address] PCP - General Family Medicine 03/02/21 Alok Marroquin MD [address] [place] [address] Referring Gastroenterology 06/15/22 [place] [address] [place] [address] Thoracic Surgery 07/15/22 It Systems Analyst Consultant Relationship Specialty Start Date End Date Francisco Bahena MD [address] [place] [address] PCP - General Family Medicine 03/02/21 Alok Marroquin MD [address] [place] [address] Referring Gastroenterology 06/15/22 [place] [address] [facility] [place] [address] Thoracic Surgery 07/15/22 It Systems Analyst Consultant Relationship Specialty Start Date End Date Francisco Bahena MD [address] [place] [address] PCP - General Family Medicine 03/02/21 Alok Marroquin MD [address] [place] [address] Referring Gastroenterology 06/15/22 [place] [address] [place] [address] Thoracic Surgery 07/15/22 It Systems Analyst Consultant Relationship Specialty Start Date End Date Francisco Bahena MD [address] [facility] [address] PCP - General Family Medicine 03/02/21 Alok Marroquin MD [address] [place] [address] Referring Gastroenterology 06/15/22 [place] [address] [place] [address] Thoracic Surgery 07/15/22 It Systems Analyst Consultant Relationship Specialty Start Date End Date Francisco Bahena MD [address] [place] [address] PCP - General Family Medicine 03/02/21 Alok Marroquin MD [address] [place] [address] Referring Gastroenterology 06/15/22 [place] [address] [place] [address] Thoracic Surgery 07/15/22 It Systems Analyst Consultant Relationship Specialty Start Date End Date Francisco Bahena MD [address] [place] [address] PCP - General Family Medicine 03/02/21 Alok Marroquin MD [address] [place] [address] Referring Gastroenterology 06/15/22 [place] [address] [place] [address] Thoracic Surgery 07/15/22 It Systems Analyst Consultant Relationship Specialty Start Date End Date Francisco Bahena MD [address] [place] [address] PCP - General Family Medicine 03/02/21 Alok Marroquin MD [address] [place] [address] Referring Gastroenterology 06/15/22 [place] [address] [facility] [place] [address] Thoracic Surgery 07/15/22 It Systems Analyst Consultant Relationship Specialty Start Date End Date Francisco Bahena MD [address] [place] [address] PCP - General Family Medicine 03/02/21 Alok Marroquin MD [address] [place] [address] Referring Gastroenterology 06/15/22 [place] [address] [place] [address] Thoracic Surgery 07/15/22 Team Status: Active Member Role Status Dates Dr. Francisco Bahena MD Primary Care Provider Active Dr. Aly Li DO Emergency Provider Active Dr. Cesar Orona , Admit Provider, Attending Provider Active Team Status: Inactive Member Role Status Dates Dr. Francisco Bahena MD Primary Care Provider Active Dr. Geovani Dave , Attending Provider, Emergency Provider Active Team Status: Active Member Role Status Dates Dr. Francisco Bahena MD Primary Care Provider Active Dr. Aly Li , DO Emergency Provider Active Dr. Cesar Orona , DO Admit Provider, Other Pro vider Active Dr. Elyssa Enrique MD Attending Provider, Other Prov ider Active Team Status: Active Member Role Status Dates Dr. Francisco Bahena MD Primary Care Provider Active Dr. Aly Li , Emergency Provider Active Dr. Cesar Orona , DO Admit Provider, Other Pro vider Active Dr. Christoph Kilgore MD Attending Provider, Other Provider Active Dr. Elyssa Enrique MD Other Provider Active Team Status: Inactive Member Role Status Dates Dr. Francisco Bahena MD Primary Care Provider Active Dr. Aly Li , Emergency Provider Active Dr. Cesar Orona , DO Admit Provider, Other Pro vider Active Dr. Christoph Kilgore MD Attending Provider Active Dr. Elyssa Enrique MD Other Provider Active It Systems Analyst Consultant Relationship Specialty Start Date End Date Francisco Bahena MD [address] [place] [address] PCP - General Family Medicine 03/02/21 Alok Marroquin MD [address] [place] [address] Referring Gastroenterology 06/15/22 [place] [address] [place], [place] [id number] Thoracic Surgery 07/15/22 It Systems Analyst Consultant Relationship Specialty Start Date End Date Francisco Bahena MD [address] [place] [address] PCP - General Family Medicine 03/02/21 Alok Marroquin MD [address] [place] [address] Referring Gastroenterology 06/15/22 [place] [address] [place] [address] Thoracic Surgery 07/15/22 It Systems Analyst Consultant Relationship Specialty Start Date End Date Francisco Bahena MD [address] [facility] [place] [address] PCP - General Family Medicine 03/02/21 Alok Marroquin MD [address] [place] [address] Referring Gastroenterology 06/15/22 [place] [address] [place] [address] Thoracic Surgery 07/15/22 It Systems Analyst Consultant Relationship Specialty Start Date End Date Francisco Bahena MD [address] [place] [address] PCP - General Family Medicine 03/02/21 Alok Marroquin MD [address] [place] [address] Referring Gastroenterology 06/15/22 [place] [address] [facility] [place] [address] Thoracic Surgery 07/15/22 It Systems Analyst Consultant Relationship Specialty Start Date End Date Francisco Bahena MD [address] [place] [address] PCP - General Family Medicine 03/02/21 Alok Marroquin MD [address] [place] [address] Referring Gastroenterology 06/15/22 [place] [address] [place] [address] Thoracic Surgery 07/15/22 It Systems Analyst Consultant Relationship Specialty Start Date End Date Francisco Bahena MD [address] [facility] [place] [address] PCP - General Family Medicine 03/02/21 Alok Marroquin MD [address] [place] [address] Referring Gastroenterology 06/15/22 [place] [address] [place] [address] Thoracic Surgery 07/15/22 It Systems Analyst Consultant Relationship Specialty Start Date End Date Francisco Bahena MD [address] [place] [address] PCP - General Family Medicine 03/02/21 Alok Marroquin MD [address] [place] [address] Referring Gastroenterology 06/15/22 [place] [address] [facility] [address] Thoracic Surgery 07/15/22 It Systems Analyst Consultant Relationship Specialty Start Date End Date Francisco Bahena MD [address] [place] [address] PCP - General Family Medicine 03/02/21 Alok Marroquin MD [address] [place] [address] Referring Gastroenterology 06/15/22 [place] [address] [place] [address] Thoracic Surgery 07/15/22 It Systems Analyst Consultant Relationship Specialty Start Date End Date Francisco Bahena MD [address] [facility] [place] [address] PCP - General Family Medicine 03/02/21 Alok Marroquin MD [address] [facility] [address] Referring Gastroenterology 06/15/22 [place] [address] [facility] [address] Thoracic Surgery 07/15/22 It Systems Analyst Consultant Relationship Specialty Start Date End Date Francisco Bahena MD [address] [place] [address] PCP - General Family Medicine 03/02/21 Alok Marroquin MD [address] [place] [address] Referring Gastroenterology 06/15/22 [place] [address] [facility] [place] [address] Thoracic Surgery 07/15/22 It Systems Analyst Consultant Relationship Specialty Start Date End Date Francisco Bahena MD [address] [place] [address] PCP - General Family Medicine 03/02/21 Alok Marroquin MD [address] [place] [address] Referring Gastroenterology 06/15/22 [place] [address] [place] [address] Thoracic Surgery 07/15/22 It Systems Analyst Consultant Relationship Specialty Start Date End Date Francisco Bahena MD [address] [facility] [place] [address] PCP - General Family Medicine 03/02/21 Alok Marroquin MD [address] [facility] [address] Referring Gastroenterology 06/15/22 [place] [address] [place] [address] Thoracic Surgery 07/15/22 It Systems Analyst Consultant Relationship Specialty Start Date End Date Francisco Bahena MD [address] [facility] [address] PCP - General Family Medicine 03/02/21 Alok Marroquin MD [address] [facility] [place] [address] Referring Gastroenterology 06/15/22 [place] [address] [facility] [address] Thoracic Surgery 07/15/22 It Systems Analyst Consultant Relationship Specialty Start Date End Date Francisco Bahena MD [address] [facility] [address] PCP - General Family Medicine 03/02/21 Alok Marroquin MD [address] [facility] [address] Referring Gastroenterology 06/15/22 [place] [address] [place] [address] Thoracic Surgery 07/15/22 It Systems Analyst Consultant Relationship Specialty Start Date End Date Francisco Bahena MD [address] [place] [address] PCP - General Family Medicine 03/02/21 Alok Marroquin MD [address] [place] [address] Referring Gastroenterology 06/15/22 [place] [address] [facility] [address] Thoracic Surgery 07/15/22 It Systems Analyst Consultant Relationship Specialty Start Date End Date Francisco Bahena MD [address] [place] [address] PCP - General Family Medicine 03/02/21 Alok Marroquin MD [address] [place] [address] Referring Gastroenterology 06/15/22 [place] [address] [facility] [address] Thoracic Surgery 07/15/22 It Systems Analyst Consultant Relationship Specialty Start Date End Date Francisco Bahena MD [address] [facility] [address] PCP - General Family Medicine 03/02/21 Alok Marroquin MD [address] [place] [address] Referring Gastroenterology 06/15/22 [place] [address] [place] [address] Thoracic Surgery 07/15/22 It Systems Analyst Consultant Relationship Specialty Start Date End Date Francisco Bahena MD [address] [place] [address] PCP - General Family Medicine 03/02/21 Alok Marroquin MD [address] [place] [address] Referring Gastroenterology 06/15/22 [place] [address] [place] [address] Thoracic Surgery 07/15/22 It Systems Analyst Consultant Relationship Specialty Start Date End Date Francisco Bahena MD [address] [place] [address] PCP - General Family Medicine 03/02/21 Alok Marroquin MD [address] [place] [address] Referring Gastroenterology 06/15/22 [place] [address] [place] [address] Thoracic Surgery 07/15/22 It Systems Analyst Consultant Relationship Specialty Start Date End Date Francisco Bahena MD [address] [place] [address] PCP - General Family Medicine 03/02/21 Alok Marroquin MD [address] [place] [address] Referring Gastroenterology 06/15/22 [place] [address] [place] [address] Thoracic Surgery 07/15/22 It Systems Analyst Consultant Relationship Specialty Start Date End Date Francisco Bahena MD [address] [place] [address] PCP - General Family Medicine 03/02/21 Alok Marroquin MD [address] [place] [address] Referring Gastroenterology 06/15/22 [place] [address] [place] [address] Thoracic Surgery 07/15/22 It Systems Analyst Consultant Relationship Specialty Start Date End Date Francisco Bahena MD [address] [place] [address] PCP - General Family Medicine 03/02/21 Alok Marroquin MD [address] [place] [address] Referring Gastroenterology 06/15/22 [place] [address] [place] [address] Thoracic Surgery 07/15/22 It Systems Analyst Consultant Relationship Specialty Start Date End Date Francisco Bahena MD [address] [place] [address] PCP - General Family Medicine 03/02/21 Alok Marroquin MD [address] [facility] [address] Referring Gastroenterology 06/15/22 [place] [address] [place] [address] Thoracic Surgery 07/15/22 It Systems Analyst Consultant Relationship Specialty Start Date End Date Francisco Bahena MD [address] [place] [address] PCP - General Family Medicine 03/02/21 Alok Marroquin MD [address] [place] [address] Referring Gastroenterology 06/15/22 [place] [address] [place] [address] Thoracic Surgery 07/15/22 It Systems Analyst Consultant Relationship Specialty Start Date End Date Francisco Bahena MD [address] [place] [address] PCP - General Family Medicine 03/02/21 Alok Marroquin MD [address] [place] [address] Referring Gastroenterology 06/15/22 [place] [address] [place] [address] Thoracic Surgery 07/15/22 It Systems Analyst Consultant Relationship Specialty Start Date End Date Francisco Bahena MD [address] [place] [address] PCP - General Family Medicine 03/02/21 Alok Marroquin MD [address] [facility] [address] Referring Gastroenterology 06/15/22 [place] [address] [place] [address] Thoracic Surgery 07/15/22 It Systems Analyst Consultant Relationship Specialty Start Date End Date Francisco Bahena MD [address] [place] [address] PCP - General Family Medicine 03/02/21 Alok Marroquin MD [address] [place] [address] Referring Gastroenterology 06/15/22 [place] [address] [facility] [place] [address] Thoracic Surgery 07/15/22 It Systems Analyst Consultant Relationship Specialty Start Date End Date Francisco Bahena MD [address] [place] [address] PCP - General Family Medicine 03/02/21 Alok Marroquin MD [address] [place] [address] Referring Gastroenterology 06/15/22 [place] [address] [facility] [place] [address] Thoracic Surgery 07/15/22 It Systems Analyst Consultant Relationship Specialty Start Date End Date Francisco Bahena MD [address] [place] [address] PCP - General Family Medicine 03/02/21 Alok Marroquin MD [address] [facility] [address] Referring Gastroenterology 06/15/22 [place] [address] [address] [place], [place] [address] Thoracic Surgery 07/15/22 It Systems Analyst Consultant Relationship Specialty Start Date End Date Francisco Bahena MD [address] [place] [address] PCP - General Family Medicine 03/02/21 Alok Marroquin MD [address] [place] [address] Referring Gastroenterology 06/15/22 [place] [address] [place] [address] Thoracic Surgery 07/15/22 It Systems Analyst Consultant Relationship Specialty Start Date End Date Francisco Bahena MD [address] [place] [address] PCP - General Family Medicine 03/02/21 Alok Marroquin MD [address] [place] [address] Referring Gastroenterology 06/15/22 [place] [address] [facility] [address] Thoracic Surgery 07/15/22 It Systems Analyst Consultant Relationship Specialty Start Date End Date Francisco Bahena MD [address] [place] [address] PCP - General Family Medicine 03/02/21 It Systems Analyst Consultant Relationship Specialty Start Date End Date Francisco Bahena MD [address] [facility] [address] PCP - General Family Medicine 03/02/21 Alok Marroquin MD [address] [place] [address] Referring Gastroenterology 06/15/22 [place] [address] [facility] [place], [place] [address] Thoracic Surgery 07/15/22 It Systems Analyst Consultant Relationship Specialty Start Date End Date Francisco Bahena MD [address] [place] [address] PCP - General Family Medicine 03/02/21 Alok Marroquin MD [address] [place] [address] Referring Gastroenterology 06/15/22 [place] [address] [facility] [address] Thoracic Surgery 07/15/22 It Systems Analyst Consultant Relationship Specialty Start Date End Date Francisco Bahena MD [address] [place] [address] PCP - General Family Medicine 03/02/21 Alok Marroquin MD [address] [place] [address] Referring Gastroenterology 06/15/22 [place] [address] [place] [address] Thoracic Surgery 07/15/22 It Systems Analyst Consultant Relationship Specialty Start Date End Date Francisco Bahena MD [address] [place] [address] PCP - General Family Medicine 03/02/21 Alok Marroquin MD [address] [place] [address] Referring Gastroenterology 06/15/22 [place] [address] [place] [address] Thoracic Surgery 07/15/22 It Systems Analyst Consultant Relationship Specialty Start Date End Date Francisco Bahena MD [address] [place] [address] PCP - General Family Medicine 03/02/21 Alok Marroquin MD [address] [place] [address] Referring Gastroenterology 06/15/22 [place] [address] [facility] [place] [address] Thoracic Surgery 07/15/22 It Systems Analyst Consultant Relationship Specialty Start Date End Date Francisco Bahena MD [address] [place] [address] PCP - General Family Medicine 03/02/21 Alok Marroquin MD [address] [place] [address] Referring Gastroenterology 06/15/22 [place] [address] [place] [address] Thoracic Surgery 07/15/22 It Systems Analyst Consultant Relationship Specialty Start Date End Date Francisco Bahena MD [address] [facility] [address] PCP - General Family Medicine 03/02/21 Alok Marroquin MD [address] [facility] [address] Referring Gastroenterology 06/15/22 [place] [address] [place] [address] Thoracic Surgery 07/15/22 It Systems Analyst Consultant Relationship Specialty Start Date End Date Francisco Bahena MD [address] [facility] [address] PCP - General Family Medicine 03/02/21 Alok Marroquin MD [address] [facility] [address] Referring Gastroenterology 06/15/22 [place] [address] [place] [address] Thoracic Surgery 07/15/22 It Systems Analyst Consultant Relationship Specialty Start Date End Date Francisco Bahena MD [address] [facility] [address] PCP - General Family Medicine 03/02/21 Alok Marroquin MD [address] [facility] [place] [address] Referring Gastroenterology 06/15/22 [place] [address] [place] [address] Thoracic Surgery 07/15/22 It Systems Analyst Consultant Relationship Specialty Start Date End Date Francisco Bahena MD [address] [facility] [address] PCP - General Family Medicine 03/02/21 Alok Marroquin MD [address] [facility] [place] [address] Referring Gastroenterology 06/15/22 [place] [address] [place] [address] Thoracic Surgery 07/15/22 It Systems Analyst Consultant Relationship Specialty Start Date End Date Francisco Bahena MD [address] [facility] [address] PCP - General Family Medicine 03/02/21 Alok Marroquin MD [address] [facility] [place] [address] Referring Gastroenterology 06/15/22 [place] [address] [facility] [address] Thoracic Surgery 07/15/22 It Systems Analyst Consultant Relationship Specialty Start Date End Date Francisco Bahena MD [address] [facility] [place] [address] PCP - General Family Medicine 03/02/21 Alok Marroquin MD [address] [facility] [place] [address] Referring Gastroenterology 06/15/22 [place] [address] [place] [address] Thoracic Surgery 07/15/22 It Systems Analyst Consultant Relationship Specialty Start Date End Date Francisco Bahena MD [address] [place] [address] PCP - General Family Medicine 03/02/21 Alok Marroquin MD [address] [place] [address] Referring Gastroenterology 06/15/22 [place] [address] [place] [address] Thoracic Surgery 07/15/22 It Systems Analyst Consultant Relationship Specialty Start Date End Date Francisco Bahena MD [address] [place] [address] PCP - General Family Medicine 03/02/21 Alok Marroquin MD [address] [place] [address] Referring Gastroenterology 06/15/22 [place] [address] [facility] [place] [address] Thoracic Surgery 07/15/22 It Systems Analyst Consultant Relationship Specialty Start Date End Date Francisco Bahena MD [address] [place] [address] PCP - General Family Medicine 03/02/21 Alok Marroquin MD [address] [place] [address] Referring Gastroenterology 06/15/22 [place] [address] [facility] [place] [address] Thoracic Surgery 07/15/22 Team Status: Inactive Member Role Status Dates Dr. Francisco Bahena MD Primary Care Provider Active Dr. Geovani Dave DO Emergency Provider Active It Systems Analyst Consultant Relationship Specialty Start Date End Date Francisco Bahena MD [address] [place], [place] [address]11 PCP - General Family Medicine 03/02/21 Alok Marroquin MD [address] [place] [address] Referring Gastroenterology 06/15/22 [place] [address] [facility] [place] [address] Thoracic Surgery 07/15/22 Trinidad Roque APRN.TIME SIGNAL WIRER [address] [place] [address] Director Of Automation Family Medicine 09/01/24 Cherelle Benavides PA-C [address] [place] [address] Director Of Automation Family Medicine 09/01/24 It Systems Analyst Consultant Relationship Specialty Start Date End Date Francisco Bahena MD [facility] [place], [place] [address] PCP - General Family Medicine 03/02/21 Alok Marroquin MD [address] [place] [address] Referring Gastroenterology 06/15/22 [place] [address] [place] [address] Thoracic Surgery 07/15/22 Trinidad Roque APRN.TIME SIGNAL WIRER [address] [place] [address] Director Of Automation Family [facility] 09/01/24 Cherelle Benavides PA-C [address] [place] [address] [facility] 09/01/24 It Systems Analyst Consultant Relationship Specialty Start Date End Date Francisco Bahena MD [address] [place] [address] PCP - General Family Medicine 03/02/21 Alok Marroquin MD [address] [place] [address] Referring Gastroenterology 06/15/22 [place] [address] [place] [address] Thoracic Surgery 07/15/22 Trinidad Roque APRN.TIME SIGNAL WIRER [address] [place] [address] [facility] 09/01/24 Cherelle Benavides PA-C [address] [place] [address] [facility] 09/01/24 It Systems Analyst Consultant Relationship Specialty Start Date End Date Francisco Bahena MD [address] [place] [address] PCP - General Family Medicine 03/02/21 Alok Marroquin MD [address] [place] [address] Referring Gastroenterology 06/15/22 [place] [address] [address] [place] [place], [place] [address] Thoracic Surgery 07/15/22 Trinidad Roque APRN.TIME SIGNAL WIRER [address] [place] [address] Director Of Automation Family [facility] 09/01/24 Cherelle Benavides PA-C [address] [place] [address] Director Of Automation [facility] 09/01/24 It Systems Analyst Consultant Relationship Specialty Start Date End Date Francisco Bahena MD [address] [place] [address] PCP - General Family Medicine 03/02/21 Alok Marroquin MD [address] [place] [address] Referring Gastroenterology 06/15/22 [place] [address] [place] [address] Thoracic Surgery 07/15/22 Trinidad Roque APRN.TIME SIGNAL WIRER [address] [place] [address] Director Of Automation Family [facility] 09/01/24 Cherelle Benavides PA-C [address] [place] [address] [facility] It Systems Analyst Consultant Relationship Specialty Start Date End Date Francisco Bahena MD [address] [place] [address] PCP - General Family Medicine 03/02/21 Alok Marroquin MD [address] [place] [address] Referring Gastroenterology 06/15/22 [place] [address] [address] [place], [place] [address] Thoracic Surgery 07/15/22 Trinidad Roque APRN.TIME SIGNAL WIRER [address] [place] [address] [facility] 09/01/24 Cherelle Benavides PA-C [address] [place] [address] [facility] 09/01/24 It Systems Analyst Consultant Relationship Specialty Start Date End Date Francisco Bahena MD [address] [place] [address] PCP - General Family Medicine 03/02/21 Alok Mraroquin MD [address] [place] [address] Referring Gastroenterology 06/15/22 [place] [address] [place] [address] Thoracic Surgery 07/15/22 Trinidad Roque APRN.TIME SIGNAL WIRER [address] [place] [address] Director Of Automation Family [facility] 09/01/24 Cherelle Benavides PA-C [address] [place] [address] Director Of Automation [facility] 09/01/24 It Systems Analyst Consultant Relationship Specialty Start Date End Date Francisco Bahena MD [address] [place] [address] PCP - General Family Medicine 03/02/21 Alok Marroquin MD [address] [place] [address] Referring Gastroenterology 06/15/22 [place] [address] [place] [address] Thoracic Surgery 07/15/22 Trinidad Roque, NEREYDA.TIME SIGNAL WIRER [address] [place] [address] [facility] 09/01/24 Cherelle Benavides PA-C [address] [place] [address] [facility]/01/24 It Systems Analyst Consultant Relationship Specialty Start Date End Date Francisco Bahena MD [address] [place] [address] PCP - General Family Medicine 03/02/21 Alok Marroquin MD [address] [place] [address] Referring Gastroenterology 06/15/22 [place] [address] [place] [address] Thoracic Surgery 07/15/22 Trinidad Roque APRN.TIME SIGNAL WIRER [address] [place] [address] Director Of Automation Family Medicine 09/01/24 Cherelle Benavides PA-C [address] [place] [address] Director Of Automation Family [facility] 09/01/24 It Systems Analyst Consultant Relationship Specialty Start Date End Date Francisco Bahena MD [address] [place] [address] PCP - General Family Medicine 03/02/21 Alok Marroquin MD [address] [place] [address] Referring Gastroenterology 06/15/22 [place] [address] [place] [address] Thoracic Surgery 07/15/22 Trinidad Roque APRN.TIME SIGNAL WIRER [address] [place] [address] Director Of Automation Family Medicine 09/01/24 Cherelle Benavides PA-C [facility] [place] [address] Director Of Automation Family Medicine 09/01/24 It Systems Analyst Consultant Relationship Specialty Start Date End Date Francisco Bahena MD [address] [place] [address] PCP - General Family Medicine 03/02/21 Alok Marroquin MD [address] [place] [address] Referring Gastroenterology 06/15/22 [place] [address] [place] [address] Thoracic Surgery 07/15/22 Trinidad Roque APRN.TIME SIGNAL WIRER [address] [place] [address] Director Of Automation Family [facility] 09/01/24 Cherelle Benavides PA-C [address] [place] [address] Director Of Automation [facility] 09/01/24 It Systems Analyst Consultant Relationship Specialty Start Date End Date Francisco Bahena MD [address] [place] [address] PCP - General Family Medicine 03/02/21 Alok Marroquin MD [address] [place] [address] Referring Gastroenterology 06/15/22 [place] [address] [place] [address] Thoracic Surgery 07/15/22 Trinidad Roque APRN.TIME SIGNAL WIRER [address] [place] [address] [facility] 09/01/24 Cherelle Benavides PA-C [address] [place] [address] Director Of Automation [facility] 09/01/24 It Systems Analyst Consultant Relationship Specialty Start Date End Date Francisco Bahena MD [address] [place] [address] PCP - General Family Medicine 03/02/21 Alok Marroquin MD [address] [place] [address] Referring Gastroenterology 06/15/22 [place] [address] [facility] [place] [address] Thoracic Surgery 07/15/22 Trinidad Roque APRN.TIME SIGNAL WIRER [address] [place] [address] Director Of Automation [facility] Medicine 09/01/24 Cherelle Benavides PA-C [address] [place] [address] [facility] 09/01/24 It Systems Analyst Consultant Relationship Specialty Start Date End Date Francisco Bahena MD [address] [place] [address] PCP - General Family Medicine 03/02/21 Alok Marroquin MD [address] [place] [address] Referring Gastroenterology 06/15/22 [place] [address] [place] [address] Thoracic Surgery 07/15/22 Trinidad Roque APRN.TIME SIGNAL WIRER [facility] [place] [address] Director Of Automation [facility] 09/01/24 Cherelle Benavides PA-C [address] [place] [address] [facility] 09/01/24 It Systems Analyst Consultant Relationship Specialty Start Date End Date Francisco Bahena MD [address] [place] [address] PCP - General Family Medicine 03/02/21 Alok Marroquin MD [address] [place] [address] Referring Gastroenterology 06/15/22 [place] [address] [place] [address] Thoracic Surgery 07/15/22 Trinidad Roque APRN.TIME SIGNAL WIRER [address] [place] [address] [facility] 09/01/24 Cherelle Benavides PA-C [address] [place] [address] [facility] 09/01/24 It Systems Analyst Consultant Relationship Specialty Start Date End Date Francisco Bahena MD [address] [place] [address] PCP - General Family Medicine 03/02/21 Alok Marroquin MD [address] [place] [address] Referring Gastroenterology 06/15/22 [place] [address] [place] [address] Thoracic Surgery 07/15/22 Trinidad Roque APRN.TIME SIGNAL WIRER [address] [place] [address] Director Of Automation Family Medicine 09/01/24 Cherelle Benavides PA-C [address] [place] [address] [facility] It Systems Analyst Consultant Relationship Specialty Start Date End Date Francisco Bahena MD [address] [place] [address] PCP - General Family Medicine 03/02/21 Alok Marroquin MD [address] [place] [address] Referring Gastroenterology 06/15/22 [place] [address] [facility] [place] [address] Thoracic Surgery 07/15/22 Trinidad Roque APRN.TIME SIGNAL WIRER [address] [place] [address] [facility] 09/01/24 Cherelle Benavides PA-C [address] [place] [address] [facility] 09/01/24 It Systems Analyst Consultant Relationship Specialty Start Date End Date Francisco Bahena MD [address] [place] [address] PCP - General Family Medicine 03/02/21 Alok Marroquin MD [address] [place] [address] Referring Gastroenterology 06/15/22 [place] [address] [place] [address] Thoracic Surgery 07/15/22 Trinidad Roque APRN.TIME SIGNAL WIRER [address] [place] [address] Director Of Automation Family Medicine 09/01/24 Cherelle Benavides PA-C [address] [place] [address] Director Of Automation Family [facility] 09/01/24 It Systems Analyst Consultant Relationship Specialty Start Date End Date Francisco Bahena MD [address] [place] [address] PCP - General Family Medicine 03/02/21 Alok Marroquin MD [address] [place] [address] Referring Gastroenterology 06/15/22 [place] [address] [place] [address] Thoracic Surgery 07/15/22 Trinidad Roque APRN.TIME SIGNAL WIRER [address] [place] [address] Director Of Automation Family Medicine 09/01/24 Cherelle Benavides PA-C [address] [place] [address] Director Of Automation Family [facility] 09/01/24 It Systems Analyst Consultant Relationship Specialty Start Date End Date Francisco Bahena MD [address] [place] [address] PCP - General Family Medicine 03/02/21 Alok Marroquin MD [address] [place] [address] Referring Gastroenterology 06/15/22 [place] [address] [place] [address] Thoracic Surgery 07/15/22 Trinidad Roque APRN.TIME SIGNAL WIRER [address] [place] [address] Director Of Automation Family [facility] 09/01/24 Cherelle Benavides PA-C [facility] [place] [address] Director Of Automation [facility] 09/01/24 It Systems Analyst Consultant Relationship Specialty Start Date End Date Francisco Bahena MD [address] [place] [address] PCP - General Family Medicine 03/02/21 Alok Marroquin MD [facility] [place] [address] Referring Gastroenterology 06/15/22 [place] [address] [place] [address] Thoracic Surgery 07/15/22 Trinidad Roque APRN.TIME SIGNAL WIRER [facility] [place] [address] Director Of Automation [facility] 09/01/24 Cherelle Benavides PA-C [address] [facility] [place] [address] [facility] 09/01/24 It Systems Analyst Consultant Relationship Specialty Start Date End Date Francisco Bahena MD [address] [place] [address] PCP - General Family Medicine 03/02/21 Alok Marroquin MD [address] [place] [address] Referring Gastroenterology 06/15/22 [place] [address] [facility] [place] [address] Thoracic Surgery 07/15/22 Trinidad Roque APRN.TIME SIGNAL WIRER [address] [place] [address] [facility] 09/01/24 Cherelle Benavides PA-C [address] [place] [address] [facility] 09/01/24 It Systems Analyst Consultant Relationship Specialty Start Date End Date Francisco Bahena MD [address] [place] [address] PCP - General Family Medicine 03/02/21 Alok Marroquin MD [address] [facility] [place] [address] Referring Gastroenterology 06/15/22 [place] [address] [place] [address] Thoracic Surgery 07/15/22 Trinidad Roque, NEREYDA.TIME SIGNAL WIRER [address] [place] [address] Director Of Automation Family [facility] 09/01/24 Cherelle Benavides PA-C [address] [place] [address] Director Of Automation [facility] 09/01/24 It Systems Analyst Consultant Relationship Specialty Start Date End Date Francisco Bahena MD [address] [place] [address] PCP - General Family Medicine 03/02/21 Alok Marroquin MD [address] [place] [address] Referring Gastroenterology 06/15/22 [place] [address] [place] [address] Thoracic Surgery 07/15/22 Trinidad Roque, NEREYDA.TIME SIGNAL WIRER [facility] [place] [address] Director Of Automation Family [facility] 09/01/24 Cherelle Benavides PA-C [address] [place] [address] [facility] 09/01/24 It Systems Analyst Consultant Relationship Specialty Start Date End Date Francisco Bahena MD [address] [place] [address] PCP - General Family Medicine 03/02/21 Alok Marroquin MD [address] [place] [address] Referring Gastroenterology 06/15/22 [place] [address] [place] [address] Thoracic Surgery 07/15/22 Trinidad Roque APRN.TIME SIGNAL WIRER [address] [place] [address] Director Of Automation Family [facility] 09/01/24 Cherelle Benavides PA-C [address] [place] [address] Director Of Automation [facility] 09/01/24 It Systems Analyst Consultant Relationship Specialty Start Date End Date Francisco Bahena MD [address] [place] [address] PCP - General Family Medicine 12/31/24 Alok Marroquin MD Referring Gastroenterology 06/15/22 [place] [address] [place] [address] Thoracic Surgery 07/15/22 Trinidad Roque APRN.TIME SIGNAL WIRER [address] [place] [address] Director Of Automation Family [facility] 09/01/24 Cherelle Benavides PA-C [address] [place] [address] Director Of Automation [facility] 09/01/24 It Systems Analyst Consultant Relationship Specialty Start Date End Date Francisco Bahena MD [address] [place] [address] [place] [address] PCP - General Family Medicine 12/31/24 Alok Marroquin MD Referring Gastroenterology 06/15/22 [place] [address] [place] [address] Thoracic Surgery 07/15/22 Trindiad Roque APRN.TIME SIGNAL WIRER [address] [place] [address] [facility] 09/01/24 Cherelle Benavides PA-C [facility] [place] [address] [facility] 09/01/24 It Systems Analyst Consultant Relationship Specialty Start Date End Date Francisco Bahena MD [address] [place] [address] PCP - General Family Medicine 12/31/24 Alok Marroquin MD Referring Gastroenterology 06/15/22 [place] [address] [facility] [place] [address] Thoracic Surgery 07/15/22 Trinidad Roque APRN.TIME SIGNAL WIRER [facility] [place] [address] [facility] 09/01/24 Cherelle Benavides PA-C [address] [place] [address] [facility] 09/01/24 Team Status: Active Member Role Status Dates Dr. Francisco Bahena MD Primary Care Provider Active Start: January 08, 2025 Dr. Hector Baxter MD Emergency Provider Active Start: January 08, 2025 Dr. Keyana Aldana MD Admit Provider Active St art: January 08, 2025 Dr. Keyana Aldana MD Attending Provider Active Start: January 08, 2025 It Systems Analyst Consultant Relationship Specialty Start Date End Date Francisco Bahena MD [address] [place] [address] PCP - General Family Medicine 12/31/24 Alok Marroquin MD Referring Gastroenterology 06/15/22 [place] [address] [place] [address] Thoracic Surgery 07/15/22 Trinidad Rqoue APRN.TIME SIGNAL WIRER [address] [place] [address] [facility] 09/01/24 Cherelle Benavides PA-C [address] [place] [address] [facility] 09/01/24 It Systems Analyst Consultant Relationship Specialty Start Date End Date Francisco Bahena MD [address] [place], [place] [id number] PCP - General Family Medicine 12/31/24 Alok Marroquin MD Referring Gastroenterology 06/15/22 [place] [address] [facility] [place] [address] Thoracic Surgery 07/15/22 Trinidad Roque APRN.TIME SIGNAL WIRER [address] [place] [address] Director Of Automation [facility] 09/01/24 Cherelle Benavides PA-C [address] [place] [address] Director Of Automation Family [facility] 09/01/24 It Systems Analyst Consultant Relationship Specialty Start Date End Date Francisco Bahena MD [address] [place], [place] 85[address]81 PCP - General Family Medicine 12/31/24 Alok Marroquin MD Referring Gastroenterology 06/15/22 [place] [address] [place] [address] Thoracic Surgery 07/15/22 Trinidad Roque, NEREYDA.TIME SIGNAL WIRER [address] [place] [address] Director Of Automation Family [facility] 09/01/24 Cherelle Benavides PA-C [address] [place] [address] Director Of Automation Family [facility] 09/01/24 It Systems Analyst Consultant Relationship Specialty Start Date End Date Francisco Bahena MD [address] [place] [address] PCP - General Family Medicine 12/31/24 Alok Marroquin MD Referring Gastroenterology 06/15/22 [place] [address] [place] [address] Thoracic Surgery 07/15/22 Trinidad Roque APRN.TIME SIGNAL WIRER [address] [place] [address] [facility] 09/01/24 Cherelle Benavides PA-C [address] [place] [address] [facility] 09/01/24 It Systems Analyst Consultant Relationship Specialty Start Date End Date Francisco Bahena MD [address] [place], [place] 519901 PCP - General Family Medicine 12/31/24 Alok Marroquin MD Referring Gastroenterology 06/15/22 [place] [address] [place] [address] Thoracic Surgery 07/15/22 Trinidad Roque APRN.TIME SIGNAL WIRER [address] [place] [address] [facility] 09/01/24 Cherelle Benavides PA-C [address] [place] [address] 992531 [facility] 09/01/24 It Systems Analyst Consultant Relationship Specialty Start Date End Date Francisco Bahena MD [address] [place] [address] PCP - General Family Medicine 12/31/24 Alok Marroquin MD Referring Gastroenterology 06/15/22 [place] [address] [place], [place] 47459[address] Thoracic Surgery 07/15/22 Trinidad Roque APRN.TIME SIGNAL WIRER [address] [place] [address] Director Of Automation Family [facility] 09/01/24 Cherelle Benavides PA-C [address] [place] [address] Director Of Automation [facility] 09/01/24 It Systems Analyst Consultant Relationship Specialty Start Date End Date Francisco Bahena MD [address] [place] [address] PCP - General Family Medicine 12/31/24 Alok Marroquin MD Referring Gastroenterology 06/15/22 [place] [address] [place], [place] 8396711 Thoracic Surgery 07/15/22 Trinidad Roque APRN.TIME SIGNAL WIRER [facility] [place] [address] Director Of Automation Family [facility] 09/01/24 Cherelle Benavides PA-C [address] [place] [address] Director Of Automation [facility] 09/01/24 Nik Omer RN [address] [place], [place] [id number] Primary Care De Icer Finisher [facility] 01/18/25 It Systems Analyst Consultant Relationship Specialty Start Date End Date Francisco Bahena MD [address] [place] [address] PCP - General Family Medicine 12/31/24 Alok Marroquin MD Referring Gastroenterology 06/15/22 [place] [address] [place] [address] Thoracic Surgery 07/15/22 Trinidad Roque APRN.TIME SIGNAL WIRER [address] [place] [address] Director Of Automation Family [facility] 09/01/24 Cherelle Benavides PA-C [address] [place] [address] Director Of Automation [facility] 09/01/24 Nik Omer RN [address] [place], [place] [id number] Primary Care De Icer Finisher Family [facility] 01/18/25 It Systems Analyst Consultant Relationship Specialty Start Date End Date Francisco Bahena MD [address] [place] [address] PCP - General Family Medicine 12/31/24 Alok Marroquin MD Referring Gastroenterology 06/15/22 [place] [address] [place], [place] 1077011 Thoracic Surgery 07/15/22 Trinidad Roque, PRODUCTION ENGINEER TRACK.TIME SIGNAL WIRER [address] [place] [address] Director Of Automation [facility] 09/01/24 Cherelle Benavides PA-C [address] [place] [address] Director Of Automation [facility] 09/01/24 Nik Omer RN [address] [place], [place] [id number] Primary Care De Icer Finisher [facility] 01/18/25 It Systems Analyst Consultant Relationship Specialty Start Date End Date Francisco Bahena MD [address] [place] [address] PCP - General Family Medicine 12/31/24 Alok Marroquin MD Referring Gastroenterology 06/15/22 [place] [address] [place] [address] Thoracic Surgery 07/15/22 Trinidad Roque, PRODUCTION ENGINEER TRACK.TIME SIGNAL WIRER [address] [place] [address] [facility] 09/01/24 Cherelle Benavides PA-C [address] [place] [address] [facility] 09/01/24 Nik Omer RN [address] [place], [place] 81946[address] Primary Care De Icer Finisher [facility] 01/18/25 It Systems Analyst Consultant Relationship Specialty Start Date End Date Francisco Bahena MD [address] [place], [place] [id number] PCP - General Family Medicine 12/31/24 Alok Marroquin MD Referring Gastroenterology 06/15/22 [place] [address] [place] [address] Thoracic Surgery 07/15/22 Trinidad Roque APRN.TIME SIGNAL WIRER [address] [place] [address] [phone] Director Of Automation [facility] 09/01/24 Cherelle Benavides PA-C [address] [place] [address] [phone] Director Of Automation [facility] 09/01/24 Nik Omer, LISSETTE [address] [place], [place] [phone] Primary Care De Icer Finisher [facility] 01/18/25 Team Status: Active Member Role Status Dates Dr. Francisco Bahena MD Primary Care Provider Active Start: January 10, 2025 Dr. Hector Baxter MD Emergency Provider Active Start: January 10, 2025 Dr. Keyana [place]ana MD Admit Provider Active St art: January 10, 2025 Dr. Keyana [place] MD Other Provider Active St art: January 10, 2025 Dr. Christoph Kilgore MD Attending Provider Active Start: January 10, 2025 Dr. Christoph Kilgore MD Other Provider Active Start: January 10, 2025 Team Status: Inactive Member Role Status Dates Dr. Francisco Bahena MD Primary Care Provider Active Start: January 29, 2025 End: January 29, 2025 Pool Lopez MD Emergency Provider Active Star t: January 29, 2025 End: January 29, 2025 It Systems Analyst Consultant Relationship Specialty Start Date End Date Francisco Bahena MD [address] [place] [address] [id number] PCP - General Family Medicine 12/31/24 Alok Marroquin MD Referring Gastroenterology 06/15/22 [place] [address] [address] [place] 028[address] Thoracic Surgery 07/15/22 Trinidad Roque, NEREYDA.TIME SIGNAL WIRER [address] [place] [address]62 Director Of Automation Family [facility] 09/01/24 Cherelle Benavides PA-C [address] [place] [address] 083251 Director Of Automation Family [facility] 09/01/24 Nik Omer, RN [address] [place], [place] [id number] Primary Care De Icer Finisher [facility] 01/18/25 It Systems Analyst Consultant Relationship Specialty Start Date End Date Francisco Bahena MD [address] [place] [address] PCP - General Family Medicine 12/31/24 Alok Marroquin MD Referring Gastroenterology 06/15/22 [place] [address] [address] [place] [place], [place] 5948[address] Thoracic Surgery 07/15/22 Trinidad Roque APRN.TIME SIGNAL WIRER [address] [place] [address] Director Of Automation Family [facility] 09/01/24 Cherelle Benavides PA-C [address] [place] [address] Director Of Automation Family [facility] 09/01/24 Nik Omer RN [address] [place], [place] [phone] Primary Care De Icer Finisher Family [facility] 01/18/25 It Systems Analyst Consultant Relationship Specialty Start Date End Date Francisco Bahena MD [address] [place] [address] PCP - General Family Medicine 12/31/24 Alok Marroquin MD Referring Gastroenterology 06/15/22 [place] [address] [place] [address] Thoracic Surgery 07/15/22 Trinidad Roque APRN.TIME SIGNAL WIRER [address] [place] [address] Director Of Automation Family [facility] 09/01/24 Cherelle Benavides PA-C [address] [place] [address] Director Of Automation Family [facility] 09/01/24 Nik Omer RN [address] [place], [place] [phone] Primary Care De Icer Finisher [facility] 01/18/25 It Systems Analyst Consultant Relationship Specialty Start Date End Date Francisco Bahena MD [address] [place], [place] 119931 PCP - General Family Medicine 12/31/24 Alok Marroquin MD Referring Gastroenterology 06/15/22 [place] [address] [place] [address] Thoracic Surgery 07/15/22 Trinidad Roque APRN.TIME SIGNAL WIRER [address] [place] [address] Director Of Automation [facility] 09/01/24 Cherelle Benavides PA-C [address] [place] [address] Director Of Automation [facility] 09/01/24 Nik Omer, RN [address] [place] [address] Primary Care De Icer Finisher [facility] 01/18/25 It Systems Analyst Consultant Relationship Specialty Start Date End Date Francisco Bahena MD [address] [place] [address] PCP - General Family Medicine 12/31/24 Alok Marroquin MD Referring Gastroenterology 06/15/22 [place] [address] [place] [address] Thoracic Surgery 07/15/22 Cherelle Benavides PA-C [address] [place] [address] Director Of Automation Family [facility] 09/01/24 It Systems Analyst Consultant Relationship Specialty Start Date End Date Francisco Bahena MD [address] [place] [address] PCP - General Family Medicine 12/31/24 Alok Marroquin MD Referring Gastroenterology 06/15/22 [place] [address] [place] [address] Thoracic Surgery 07/15/22 Cherelle Benavides PA-C [address] [place] [address] [facility] 09/01/24 It Systems Analyst Consultant Relationship Specialty Start Date End Date Francisco Bahena MD [address] [place] [address] PCP - General Family Medicine 12/31/24 Alok Marroquin MD Referring Gastroenterology 06/15/22 [place] [address] [facility] [address] Thoracic Surgery 07/15/22 Cherelle Benavides PA-C [address] [place] [address] [facility]24 It Systems Analyst Consultant Relationship Specialty Start Date End Date Francisco Bahena MD [address] [place] [address] PCP - General Family Medicine 12/31/24 Alok Marroquin MD Referring Gastroenterology 06/15/22 [place] [address] [facility] [address] Thoracic Surgery 07/15/22 Cherelle Benavides PA-C [address] [place] [address] Director Of Automation [facility] 09/01/24 It Systems Analyst Consultant Relationship Specialty Start Date End Date Francisco Bahena MD [address] [place] [address] PCP - General Family Medicine 12/31/24 Alok Marroquin MD Referring Gastroenterology 06/15/22 [place] [address] [facility] [place], [place] 28024[address] Thoracic Surgery 07/15/22 Trinidad Roque APRN.TIME SIGNAL WIRER [address] [place] [address] [facility] 02/25/25 Cherelle Benavides PA-C [address] [place] [address] [facility] 02/25/25 It Systems Analyst Consultant Relationship Specialty Start Date End Date Francisco Bahena MD [address] [place] [address] PCP - General Family Medicine 12/31/24 Alok Marroquin MD Referring Gastroenterology 06/15/22 [place] [address] [address] [place] [place], [place] 95403[address] Thoracic Surgery 07/15/22 Cherelle Benavides PA-C [address] [place] [address] Director Of Automation Family [facility] 09/01/24 02/24/25 Trinidad Roque APRN.TIME SIGNAL WIRER [address] [place] [address] Director Of Automation [facility] 02/25/25 Cherelle Benavides PA-C [address] [place] [address] Director Of Automation Family [facility] 02/25/25 It Systems Analyst Consultant Relationship Specialty Start Date End Date Francisco Bahena MD [address] [place] [address] PCP - General Family Medicine 12/31/24 Alok Marroquin MD Referring Gastroenterology 06/15/22 [place] [address] [place] [address] Thoracic Surgery 07/15/22 Trinidad Roque, NEREYDA.TIME SIGNAL WIRER [facility] [place] [address] Director Of Automation [facility] 02/25/25 Cherelle Benavides PA-C [address] [place] [address] Director Of Automation [facility] 02/25/25 It Systems Analyst Consultant Relationship Specialty Start Date End Date Francisco Bahena MD [address] [place] [address] PCP - General Family Medicine 12/31/24 Alok Marroquin MD Referring Gastroenterology 06/15/22 [place] [address] [place] [address] Thoracic Surgery 07/15/22 Trinidad Roque APRN.TIME SIGNAL WIRER [address] [place] [address]83 Director Of Automation Family [facility] 02/25/25 Cherelle Benavides PA-C [address] [place] [address] Director Of Automation [facility] 02/25/25 It Systems Analyst Consultant Relationship Specialty Start Date End Date Francisco Bahena MD [address] [place] [address] PCP - General Family Medicine 12/31/24 Alok Marroquin MD Referring Gastroenterology 06/15/22 [place] [address] [facility] [place] 44[address] Thoracic Surgery 07/15/22 Trinidad Roque APRN.TIME SIGNAL WIRER [address] [place] [address] Director Of Automation Family [facility] 02/25/25 Cherelle Benavides PA-C [facility] [place] [address] [facility] 02/25/25 It Systems Analyst Consultant Relationship Specialty Start Date End Date Francisco Bahena MD [address] [place] [address] PCP - General Family Medicine 12/31/24 Alok Marroquin MD Referring Gastroenterology 06/15/22 [place] [address] [facility] [place], [place] [address] Thoracic Surgery 07/15/22 Trinidad Roque APRN.TIME SIGNAL WIRER [address] [place] [address] Director Of Automation [facility] 02/25/25 Cherelle Benavides PA-C [address] [place] [address] [facility] 02/25/25 It Systems Analyst Consultant Relationship Specialty Start Date End Date Francisco Bahena MD [address] [place] [address] PCP - General Family Medicine 12/31/24 Alok Marroquin MD Referring Gastroenterology 06/15/22 [place] [address] [place] [address] Thoracic Surgery 07/15/22 Cherelle Benavides PA-C [facility] [place] [address] [facility] 09/01/24 02/24/25 Trinidad Roque APRN.TIME SIGNAL WIRER [address] [place] [address] [facility] 02/25/25 Cherelle Benavides PA-C [address] [place] [address] [facility] 02/25/25 Team Status: Active Member Role/Relationship Status Dates Dr. Francisco Bahena MD Primary Care Provider Active Team Status: Inactive Member Role/Relationship Status Dates Dr. Francisco Bahena MD Primary Care Provider Active Start: January 08, 2025 End: January 10, 2025 Dr. Hector Baxter MD Emergency Provider Active Start: January 08, 2025 End: January 10, 2025 Dr. Keyana Aldana MD Admit Provider Active St art: January 08, 2025 End: January 10, 2025 Dr. Keyana Aldana MD Other Provider Active St art: January 08, 2025 End: January 10, 2025 Dr. Christoph Kilgore MD Attending Provider Active Start: January 08, 2025 End: January 10, 2025 Team Status: Active Member Role/Relationship Status Dates Dr. Francisco Bahena MD Primary Care Provider Active Start: January 09, 2025 Dr. Hector Baxter MD Emergency Provider Active Start: January 09, 2025 Dr. Keyana Aldana MD Admit Provider Active St art: January 09, 2025 Dr. Keyana Aldana MD Other Provider Active St art: January 09, 2025 Dr. Christoph Kilgore MD Attending Provider Active Start: January 09, 2025 Dr. Christoph Kilgore MD Other Provider Active Start: January 09, 2025 Team Status: Active Member Role/Relationship Status Dates Dr. Francisco Bahena MD Primary Care Provider Active Start: January 10, 2025 Dr. Hector Baxter MD Emergency Provider Active Start: January 10, 2025 Dr. Keyana Aldana MD Admit Provider Active St art: January 10, 2025 Dr. Keyana Aldana MD Other Provider Active St art: January 10, 2025 Dr. Christoph Kilgore MD Attending Provider Active Start: January 10, 2025 Dr. Christoph Kilgore MD Other Provider Active Start: January 10, 2025 Team Status: Inactive Member Role/Relationship Status Dates Dr. Francisco Bahena MD Primary Care Provider Active Start: January 29, 2025 End: January 29, 2025 Pool Lopez MD Attending Provider Active Star t: January 29, 2025 End: January 29, 2025 Pool Lopez MD Emergency Provider Active Star t: January 29, 2025 End: January 29, 2025 It Systems Analyst Consultant Relationship Specialty Start Date End Date Francisco Bahena MD [address] [place] [address] PCP - General Family Medicine 12/31/24 Alok Marroquin MD Referring Gastroenterology 06/15/22 [place] [address] [place], [place] [id number] Thoracic Surgery 07/15/22 Trinidad Roque, NEREYDA.TIME SIGNAL WIRER [address] [place] [address] Director Of Automation Family Medicine 02/25/25 Cherelle Benavides PA-C [address] [place] [address] Director Of Automation Family Medicine 02/25/25 It Systems Analyst Consultant Relationship Specialty Start Date End Date Francisco Bahena MD [address] [place], [place] [id number] PCP - General Family Medicine 12/31/24 Alok Marroquin MD Referring Gastroenterology 06/15/22 [place] [address] [place], [place] [id number] Thoracic Surgery 07/15/22 Trinidad Roque APRN.TIME SIGNAL WIRER [address] [place] [address] Director Of Automation Family [facility] 02/25/25 Cherelle Benavides PA-C [address] [place] [address] Director Of Automation [facility] 02/25/25 It Systems Analyst Consultant Relationship Specialty Start Date End Date Francisco Bahena MD [address] [place] [address] PCP - General Family Medicine 12/31/24 Alok Marroquin MD Referring Gastroenterology 06/15/22 [place] [address] [place] [address] Thoracic Surgery 07/15/22 Trinidad Roque, NEREYDA.TIME SIGNAL WIRER [facility] [place] [address] Director Of Automation Family [facility] 02/25/25 Cherelle Benavides PA-C [address] [place] [address] [facility]/25[facility] It Systems Analyst Consultant Relationship Specialty Start Date End Date Francisco Bahena MD [address] [place] [address] PCP - General Family Medicine 12/31/24 Alok Marroquin MD Referring Gastroenterology 06/15/22 [place] [address] [place] [address] Thoracic Surgery 07/15/22 Trinidad Roque APRN.TIME SIGNAL WIRER [address] [place] [address] [id number] [facility] 02/25/25 Cherelle Benavides PA-C [address] [place] [address] [phone] [facility] 02/25/25 Team Status: Active Member Role/Relationship Status Dates Dr. Francisco Bahena MD Primary Care Provider Active Start: April 12, 2025 Dr. Marlo Echevarria DO Emergency Provider Active S tart: April 12, 2025 Dr. Monique Agarwal MD Admit Provider Active Star t: April 12, 2025 Dr. Monique Agarwal MD Attending Provider Active Start: April 12, 2025 Dr. Monique Agarwal MD Other Provider Active Star t: April 12, 2025 It Systems Analyst Consultant Relationship Specialty Start Date End Date Francisco Bahena MD [address] [place] [address] PCP - General Family Medicine 12/31/24 Alok Marroquin MD Referring Gastroenterology 06/15/22 [place] [address] [address] [place], [place] [id number] Thoracic Surgery 07/15/22 Trinidad Roque APRN.TIME SIGNAL WIRER [address] [place] [address] [phone] [facility] 02/25/25 Cherelle Benavides PA-C [address] [place] [address] Director Of Automation Family [facility] 02/25/25 Team Status: Inactive Member Role/Relationship Status Dates Dr. Francisco Bahena MD Primary Care Provider Active Start: April 12, 2025 End: April 17, 2025 Dr. Marlo Echevarria , DO Emergency Provider Active S tart: April 12, 2025 End: April 17, 2025 Dr. Monique Agarwal MD Admit Provider Active Star t: April 12, 2025 End: April 17, 2025 Dr. Monique Agarwal MD Other Provider Active Star t: April 12, 2025 End: April 17, 2025 Dr. Elyssa Enrique MD Attending Provider Active Start: April 12, 2025 End: April 17, 2025 Dr. Elyssa Enrique MD Other Provider Active St art: April 12, 2025 End: April 17, 2025 Dr. Elias Kaur MD Other Provider Active Star t: April 12, 2025 End: April 17, 2025 Team Status: Active Member Role/Relationship Status Dates Dr. Francisco Bahena MD Primary Care Provider Active Start: April 13, 2025 Dr. Marlo Echevarria DO Emergency Provider Active S tart: April 13, 2025 Dr. Monique Agarwal MD Admit Provider Active Star t: April 13, 2025 Dr. Monique Agarwal MD Other Provider Active Star t: April 13, 2025 Dr. Elias Kaur MD Attending Provider Active Start: April 13, 2025 Dr. Elias Kaur MD Other Provider Active Star t: April 13, 2025 Team Status: Active Member Role/Relationship Status Dates Dr. Francisco Bahena MD Primary Care Provider Active Start: April 14, 2025 Dr. Marlo Echevarria DO Emergency Provider Active S tart: April 14, 2025 Dr. Monique Agarwal MD Admit Provider Active Star t: April 14, 2025 Dr. Monique Agarwal MD Other Provider Active Star t: April 14, 2025 Dr. Elias Kaur MD Attending Provider Active Start: April 14, 2025 Dr. Elias Kaur MD Other Provider Active Star t: April 14, 2025 Team Status: Active Member Role/Relationship Status Dates Dr. Francisco Bahena MD Primary Care Provider Active Start: April 15, 2025 Dr. Marlo Echevarria DO Emergency Provider Active S tart: April 15, 2025 Dr. Monique Agarwal MD Admit Provider Active Star t: April 15, 2025 Dr. Monique Agarwal MD Other Provider Active Star t: April 15, 2025 Dr. Elyssa Enrique MD Attending Provider Active Start: April 15, 2025 Dr. Elyssa Enrique MD Other Provider Active St art: April 15, 2025 Dr. Elias Kaur MD Other Provider Active Star t: April 15, 2025 Team Status: Active Member Role/Relationship Status Dates Dr. Francisco Bahena MD Primary Care Provider Active Start: April 16, 2025 Dr. Marlo Echevarria DO Emergency Provider Active S tart: April 16, 2025 Dr. Monique Agarwal MD Admit Provider Active Star t: April 16, 2025 Dr. Monique Agarwal MD Other Provider Active Star t: April 16, 2025 Dr. Elyssa Enrique MD Attending Provider Active Start: April 16, 2025 Dr. Elyssa Enrique MD Other Provider Active St art: April 16, 2025 Dr. Elias Kaur MD Other Provider Active Star t: April 16, 2025 Team Status: Active Member Role/Relationship Status Dates Dr. Francisco Bahena MD Primary Care Provider Active Start: April 17, 2025 Dr. Marlo Echevarria DO Emergency Provider Active S tart: April 17, 2025 Dr. Monique Agarwal MD Admit Provider Active Star t: April 17, 2025 Dr. Monique Agarwal MD Other Provider Active Star t: April 17, 2025 Dr. Elyssa Enrique MD Attending Provider Active Start: April 17, 2025 Dr. Elyssa Enrique MD Other Provider Active St art: April 17, 2025 Dr. Elias Kaur MD Other Provider Active Star t: April 17, 2025 Reason for Visit (unrecogniz ed section and content) Reason Comments PT Eval Specialty Diagnoses / Procedures Referred By Contac t Referred To Contact PHYSICAL THERAPY Diagnoses Pelvic floor dysfunction Procedures CONSULT TO PHYSICAL THERAPY PHYSICAL THERAPY EVALUATION HIGH COMPLEX 45 MINS Daniela Noel APRN.TIME SIGNAL WIRER [address] [place] [address] Phone: tel: fax: [facility] [address] [place] [address] Phone: tel: fax: Referral ID Status Reason Start Date Expiration Date Visits Requested Visits Authorized [id number] Authorized Auto-Generat ed Referral 12/19/2024 09/25/2025 99 99 Reason Comments Physical Therapy Specialty Diagnoses / Procedures Referred By Contac t Referred To Contact [facility] Diagnoses Degenerative lumbar spinal stenosis Weakness of both lower extremities Procedures CONSULT TO PHYSICAL THERAPY PHYSICAL THERAPY EVALUATION HIGH COMPLEX 45 MINS Francisco Bahena MD [address] [place] [address] [facility] [place] [address] [place] [address] Referral ID Status Reason Start Date Expiration Date Visits Requested Visits Authorized [id number] Authorized Auto-Generat ed Referral 09/26/2023 09/25/2024 99 99 Reason Comments PT Discharge Specialty Diagnoses / Procedures Referred By Contac t Referred To Contact [facility] Diagnoses Unstable gait Chronic neck pain Lumbar back pain Procedures CONSULT TO PHYSICAL THERAPY PHYSICAL THERAPY EVALUATION HIGH COMPLEX 45 MINS THERAPEUTIC EXERCISES RE, EA 15 MIN. Cherelle Benavides PA-C [address] [place] [address] [facility] [address] [address] Referral ID Status Reason Start Date Expiration Date Visits Requested Visits Authorized [id number] Authorized Auto-Generat ed Referral 09/26/2022 09/25/2023 99 [address] Specialty Diagnoses / Procedures Referred By Contac t Referred To Contact CT IMAGING Diagnoses Lower abdominal pain Left lower quadrant abdominal pain Procedures CT ABD/PEL W IVCON CT ABD & PELVIS W/CONTRAST Francisco Bahena MD [address] [place] [address] Ct Imaging Referral ID Status Reason Start Date Expiration Date V isits Requested Visits Authorized [id number] Closed Auto-Generate d Referral 01/01/2022 01/31/2023 1 1 Reason Comments Results Reason Comments Follow Up Reason Comments Established Patient 24 hour urine result s Reason Onset Date Comments Refill Request 03/30/2022 Reason Comments Patient Question Reason Comments ER F/U Reason Onset Date Comments Refill Request 05/27/2022 Reason Comments Appointment Reason Comments External Referrals/resources Consult Reason Comments Spirometry Specialty Diagnoses / Procedures Referred By Contac t Referred To [facility] Diagnoses Preoperative testing Procedures SPIROMETRY BASELINE ONLY SPMTRY W/VC EXPIRATORY PAT W/[place] [address] [place] [address] [address] Referral ID Status Reason Start Date Expiration Date V isits Requested Visits Authorized [id number] Closed Auto-Generate d Referral 06/23/2022 07/23/2023 1 1 Specialty Diagnoses / Procedures Referred By Contac t Referred To [facility] Diagnoses Preoperative testing Procedures LUNG DIFFUSION CAPACITY (DLCO) [place] [address] [place] [address] [address] Referral ID Status Reason Start Date Expiration Date V isits Requested Visits Authorized [id number] Closed Auto-Generate d Referral 06/23/2022 07/23/2023 1 1 Specialty Diagnoses / Procedures Referred By Contac t Referred To [facility] Diagnoses Preoperative testing Procedures SIX MINUTE WALK CARDIOPULMONARY [place] [address] [place] [address] [address] Referral ID Status Reason Start Date Expiration Date V isits Requested Visits Authorized [id number] Closed Auto-Generate d Referral 06/23/2022 07/23/2023 1 1 Reason Comments Consult Reason Onset Date Comments Refill Request 07/09/2022 Reason Comments Reminder Call Reason Onset Date Comments Research Outreach 07/13/2022 Reason Comments Radiology XR Reason Comments Patient Question PreOp Call Reason Comments Patient Question Bactrim Reason Onset Date Comments Transition Of Care 08/04/2022 [facility] Pharmacy- Hospital discharge 08/02/22 Reason Comments Patient Update postop discharge upd ate call Reason Comments Patient Update Reason Comments Established Patient UTI Reason Onset Date Comments Refill Request 08/23/2022 Reason Onset Date Comments Refill Request 08/30/2022 Reason Onset Date Comments Transition Of Care 08/30/2022 initial encou nter post hospital discharge 08/27/22 Reason Comments New Patient Phlegm in throat and choking when he eats since surgery 07/29/22, pain when lying down Specialty Diagnoses / Procedures Referred By Contac t Referred To Contact Ent - Otolaryngology Diagnoses Vocal cord paralysis Procedures CONSULT TO ENT OFFICE/OUTPATIENT [facility] 60-74 MINUTES Petey Rosas PA-C [address] [place] [address] Referral ID Status Reason Start Date Expiration Date Visits Requested Visits Authorized [id number] Pending Review PCP Requested Referral 08/27/2022 08/27/2023 1 1 Reason Onset Date Comments Refill Request 09/27/2022 Reason Comments Medicare Wellness Exam Reason Comments Memory Loss Reason Comments Medication Follow-up Reason Onset Date Comments Refill Request 10/29/2022 Reason Comments Speech Therapy Speech Discharge Specialty Diagnoses / Procedures Referred By Contac t Referred To Contact [facility] Diagnoses Dysphagia, unspecified type Procedures CONSULT TO SPEECH THERAPY OFFICE/OUTPATIENT [facility] 60-[place] [address] [place] [address] [facility] [place] [address] [place] [address] Referral ID Status Reason Start Date Expiration Date Visits Requested Visits Authorized [id number] Authorized Auto-Generat ed Referral 09/28/2022 09/25/2023 99 99 Reason Comments Follow Up Reason Comments new allergy consult Specialty Diagnoses / Procedures Referred By Contac t Referred To Contact Allergy Diagnoses Pruritus Procedures CONSULT TO ALLERGY/IMMUNOLOGY OFFICE/OUTPATIENT [facility] 60-74 MINUTES Francisco Bahena MD [address] [place] [address] Referral ID Status Reason Start Date Expiration Date Visits Requested Visits Authorized [id number] Pending Review PCP Requested Referral 11/10/2022 11/10/2023 1 1 Reason Comments Patient Update Reason Comments Appointment Venofer Reason Comments Non-Chemotherapy Treatment Specialty Diagnoses / Procedures Referred By Contac t Referred To Contact Diagnoses 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 loss Procedures IRON SUCROSE INJECTION PER 1 MG Raul De Los Santos MD [address] [place] [address] [facility] [address] [place] [address] Referral ID Status Reason Start Date Expiration Date V isits Requested Visits Authorized [id number] Authorized 12/15/2022 09/25/2023 99 99 Reason Comments Benefits Investigation Reason Onset Date Comments Refill Request 12/28/2022 Reason Comments Consult Reason Onset Date Comments Refill Request 01/10/2023 Reason Comments Patient Update Urine culture result s and treatment Reason Onset Date Comments Question 01/15/2023 Reason Onset Date Comments Refill Request 01/15/2023 Reason Comments Medication Problem Reason Comments Nurse Visit Almanza catheter remov al Reason Comments Established Patient Almanza follow up Reason Comments Nurse Visit PVR Reason Onset Date Comments Refill Request 01/27/2023 Reason Comments 3 month check Reason Comments Follow Up 6 month Reason Comments PT Eval Specialty Diagnoses / Procedures Referred By Contac t Referred To Contact [facility] Diagnoses Unstable gait Chronic neck pain Lumbar back pain Procedures CONSULT TO PHYSICAL THERAPY PHYSICAL THERAPY EVALUATION HIGH COMPLEX 45 MINS THERAPEUTIC EXERCISES RE, EA 15 MIN. Cherelle Benavides PA-C [address] [place] [address] [facility] [address] [place] [address] Reason Onset Date Comments Refill Request 05/02/2023 Reason Comments New Patient Neck Pain Lower neck-very high back- bilateral Specialty Diagnoses / Procedures Referred By Contac t Referred To Contact Pain Management Diagnoses Chronic neck pain Procedures CONSULT TO PAIN MGT OFFICE/OUTPATIENT NEW HIGH MDM 60-74 MINUTES Cherelle Benavides PA-C [address] [place] [address] Referral ID Status Reason Start Date Expiration Date Visits Requested Visits Authorized [id number] Pending Review PCP Requested Referral 04/05/2023 04/04/2024 1 1 Reason Comments Injection Questions Reason Comments Procedure Neck Pain Established Patient Specialty Diagnoses / Procedures Referred By Contac t Referred To Contact Pain Management / PAIN MANAGEMENT Diagnoses Spondylosis without myelopathy or radiculopathy, cervical region Medial branch blocks bilateral C5-6,6-7 under fluoroscopic guidance x2, RFA if positive x 2 Procedures NJX DX/THER AGT PVRT FACET JT CRV/THRC 1 LEVEL NJX DX/THER AGT PVRT FACET JT CRV/THRC 2ND LEVEL PROCEDURE 20 Rigoberto Church MD [address] [employer] [address] [address] Rigoberto Church MD [address] [employer] [address] [address] Referral ID Status Reason Start Date Expiration Date Visits Re quested Visits Authorized [id number] Closed 09/26/2022 09/25/2023 1 1 Reason Comments Procedure Follow Up DR CHURCH 07/13/23 Reason Comments Follow Up BILATERAL SIDES at C 5-6 and C6-7 Reason Comments Future Appointment Reason Onset Date Comments Refill Request 08/08/2023 Reason Onset Date Comments Refill Request 08/15/2023 Reason Comments Abdominal Pain LEFT lower, sharp co nstant pain x months Specialty Diagnoses / Procedures Referred By Contac t Referred To Contact CT IMAGING Diagnoses Abdominal pain, left lower quadrant Generalized abdominal pain Procedures CT ABD/PEL WO IVCON CT ABD & PELVIS W/O CONTRAST Trinidad Roque, NEREYDA.TIME SIGNAL WIRER [address] [place] [address] [place] [address] Referral ID Status Reason Start Date Expiration Date V isits Requested Visits Authorized [id number] Closed Auto-Generate d Referral 08/30/2023 09/28/2024 1 1 Reason Comments Procedure Follow Up Dr. Church 08/29/23 Reason Comments Follow Up UTI Reason Onset Date Comments Refill Request 11/13/2023 Reason Comments Procedure Specialty Diagnoses / Procedures Referred By Contac t Referred To Contact Pain Management / PAIN MANAGEMENT Diagnoses Spondylosis without myelopathy or radiculopathy, cervical region PENDING - CAD BILATERAL RFA C5-6 and C6-7 schedule left side then right side separately Procedures DSTR NROLYTC AGNT PARVERTEB FCT SNGL CRVCL/THORA DSTR NROLYTC AGNT PARVERTEB FCT ADDL CRVCL/THORA PROCEDURE 20 Ludivina Nunez, NEREYDA.TIME SIGNAL WIRER [address] [facility] [address] [place] [address] Rigoberto Church MD [address] [facility] [address] [place] [address] Referral ID Status Reason Start Date Expiration Date Visits Re quested Visits Authorized [id number] Closed 09/26/2023 09/25/2024 1 1 Specialty Diagnoses / Procedures Referred By Contac t Referred To Contact MR IMAGING Diagnoses Memory deficits Dementia without behavioral disturbance (HCC) Procedures MRI BRAIN WO IVCON MRI BRAIN BRAIN STEM W/O CONTRAST MATERIAL Francisco Bahena MD [facility] [place] [address] [place] [address] Referral ID Status Reason Start Date Expiration Date V isits Requested Visits Authorized [id number] Closed Auto-Generate d Referral 11/21/2023 12/20/2024 1 1 Reason Onset Date Comments Refill Request 11/26/2023 Reason Comments Follow Up RFA Reason Onset Date Comments TORY TAHIRA RN 12/27/2023 E.D. Utilizat ion Review per Payer Request. Reason Comments Follow Up hospital follow up Reason Comments Radiology US Specialty Diagnoses / Procedures Referred By Contac t Referred To Contact US IMAGING Diagnoses Thyroid nodule Procedures US THYROID/PARATHYROID US SOFT TISSUE HEAD & NECK REAL TIME IMGE Francisco Carrillo MD [address] [place] [address] [place] [address] Referral ID Status Reason Start Date Expiration Date V isits Requested Visits Authorized [id number] Closed Auto-Generate d Referral 12/23/2023 01/21/2025 1 1 Reason Onset Date Comments Refill Request 02/19/2024 Reason Comments Diarrhea Reason Onset Date Comments Refill Request 02/26/2024 Reason Comments Established Patient 1 year follow up - S /P lumbar fusion Reason Onset Date Comments Refill Request 04/05/2024 Reason Onset Date Comments Refill Request 04/12/2024 Reason Comments Follow Up Established Patient Recurrent UTI Reason Onset Date Comments Refill Request 05/09/2024 Reason Onset Date Comments Refill Request 05/29/2024 Reason Comments Nightmares Sleep Problem Reason Comments nightmares Reason Comments Pain Reason Comments Results Reason Comments 6 Month Exam Reason Comments New Patient Evaluation Reason Comments Follow Up Kidney Stones Reason Comments Outside PT Specialty Diagnoses / Procedures Referred By Contac t Referred To Contact CT IMAGING Diagnoses Left upper quadrant abdominal pain Procedures CT ABD/PEL W IVCON CT ABD & PELVIS W/CONTRAST Trinidad Roque, NEREYDA.TIME SIGNAL WIRER [address] [place] [address] Ct Imaging [facility] Referral ID Status Reason Start Date Expiration Date V isits Requested Visits Authorized [id number] Closed Auto-Generate d Referral 06/25/2024 07/25/2025 [address] Specialty Diagnoses / Procedures Referred By Contac t Referred To Contact CT IMAGING Diagnoses Left upper quadrant abdominal pain Procedures CT ABD/PEL W IVCON CT ABD & PELVIS W/CONTRAST Trinidad Roque, NEREYDA.TIME SIGNAL WIRER [address] [place] [address] Ct Imaging [facility] Reason Comments 10/27/2023 COLON ASC Reason Onset Date Comments Refill Request 08/17/2024 Reason Onset Date Comments Refill Request 08/31/2024 Reason Comments Results Internal Referrals/resources Hem/Onc Reason Onset Date Comments Refill Request 09/06/2024 Reason Comments Established Patient Dementia, no more ni ghtmares Reason Comments Outside PT/OT Discharge Summary Reason Comments Fever Patient states he bach s had chills for several months, no fever, has been on iron for the last several months with no improvement in symptoms Reason Onset Date Comments Refill Request 10/09/2024 Reason Comments New Patient Specialty Diagnoses / Procedures Referred By Contac t Referred To Contact Hematology Diagnoses Iron deficiency anemia, unspecified iron deficiency anemia type Procedures CONSULT TO HEMATOLOGY OFFICE/OUTPATIENT [facility] 60 MINUTES Francisco Bahena MD [address] [place] [address] Referral ID Status Reason Start Date Expiration Date V isits Requested Visits Authorized [id number] Closed PCP Requested Referral 10/11/2024 10/11/2025 1 1 Reason Comments Depression Reason Onset Date Comments Refill Request 10/22/2024 Specialty Diagnoses / Procedures Referred By Contac t Referred To Contact Diagnoses Iron deficiency anemia, unspecified iron deficiency anemia type Procedures IRON SUCROSE INJECTION PER 1 MG Riaz Williamson [address] [place] [address] [facility] [address] [place] [address] Referral ID Status Reason Start Date Expiration Date V isits Requested Visits Authorized [id number] Authorized 10/17/2024 09/25/2025 99 99 Reason Onset Date Comments Refill Request 10/29/2024 Reason Onset Date Comments Refill Request 11/05/2024 Reason Comments Follow Up Ribs and depression. Reason Comments Needs appointment scheduled Reason Onset Date Comments Refill Request 11/20/2024 Reason Comments Radiology NM Specialty Diagnoses / Procedures Referred By Contac t Referred To Contact MOLECULAR [facility] FUNCTIONAL IMAGING Diagnoses Rib pain on left side Procedures NM BONE WHOLE BODY BONE &/JOINT IMAGING WHOLE BODY Francisco Bahena MD [address] [place] [address] Phone: tel: fax: Molecular Imaging [address] [place] [address] Phone: tel: Referral ID Status Reason Start Date Expiration Date V isits Requested Visits Authorized [id number] Closed Auto-Generate d Referral 11/13/2024 09/25/2025 1 1 Reason Onset Date Comments Refill Request 12/04/2024 Specialty Diagnoses / Procedures Referred By Contac t Referred To Contact CT IMAGING Diagnoses Pathological fracture, other site, initial encounter for fracture Abnormal radionuclide bone scan Procedures CT CHEST WO IVCON DIAGNOSTIC COMPUTED TOMOGRAPHY THORAX W/O CNTRST Francisco Bahena MD [address] [place] [address] Phone: tel: fax: [place] [id number] Referral ID Status Reason Start Date Expiration Date V isits Requested Visits Authorized [id number] Closed Auto-Generate d Referral 11/29/2024 12/29/2025 1 1 Reason Comments Established Patient Specialty Diagnoses / Procedures Referred By Contac t Referred To Contact Diagnoses Iron deficiency anemia, unspecified iron deficiency anemia type Procedures IRON SUCROSE INJECTION PER 1 MG Riaz Williamson [address] [place] [address] Phone: tel: fax: Hematology/Oncology [address] [place] [address] Phone: tel: fax: Referral ID Status Reason Start Date Expiration Date Visits Re quested Visits Authorized [id number] Closed 10/17/2024 09/25/2025 99 99 Reason Comments Manometry Reason Comments New Patient Specialty Diagnoses / Procedures Referred By Contac t Referred To Contact US IMAGING Diagnoses Screening for genitourinary condition Nephrolithiasis Complicated UTI (urinary tract infection) Procedures US KIDNEY/BLADDER US RETROPERITONEAL REAL TIME W/IMAGE COMPLETE Angela Harry PA-C [address] [place] [address] Phone: tel: fax: US IMAGING [id number] Referral ID Status Reason Start Date Expiration Date V isits Requested Visits Authorized [id number] Closed Auto-Generate d Referral 12/28/2023 01/26/2025 1 1 Reason Onset Date Comments Refill Request 12/28/2024 Reason Comments Medicare Wellness Exam Specialty Diagnoses / Procedures Referred By Contac t Referred To Contact US IMAGING Diagnoses Thyroid nodule Procedures US THYROID/PARATHYROID US SOFT TISSUE HEAD & NECK REAL TIME IMGE Francisco Carrillo MD [address] [place] [address] Phone: tel: fax: US IMAG[id number] Referral ID Status Reason Start Date Expiration Date V isits Requested Visits Authorized [id number] Closed Auto-Generate d Referral 12/31/2024 01/30/2026 1 1 Reason Onset Date Comments Results 01/10/2025 Reason Onset Date Comments Transition Of Care 01/11/2025 Reason Comments Follow HH Reason Comments Home Health Nursing Plan of Care/Update Reason Onset Date Comments Refill Request 01/14/2025 Reason Comments PT POC Reason Comments Hospital F/U [facility] - hospital follo w up Reason Comments ED Follow-up Reason Comments OT delay of care- requesting verbal Reason Onset Date Comments Refill Request 01/26/2025 Reason Comments Patient Question Patient Update Reason Comments Home Care Management Reason Comments Orders Reason Comments Patient Question Reason Comments Follow Up Recurrent UTI Reason Comments Information Reason Comments Consult Allergies to antibio tics, referred by urologist Specialty Diagnoses / Procedures Referred By Contac t Referred To Contact [facility] Diagnoses Allergy to multiple antibiotics Procedures CONSULT TO ALLERGY/IMMUNOLOGY OFFICE/OUTPATIENT NEW HIGH MDM 60 MINUTES Yun Coles MD [address] [place] [address] Phone: tel: fax: [facility] [address] [place] [address] Referral ID Status Reason Start Date Expiration Date V isits Requested Visits Authorized [id number] Closed PCP Requested Referral 02/15/2025 02/15/2026 1 1 Reason Comments Home Health Update Reason Comments Patient Update Letter Reason Onset Date Comments Refill Request 03/04/2025 Reason Comments Established Patient Follow up Other seco ndary kyphosis, thoracic region Reason Comments Radio Gen RMP Specialty Diagnoses / Procedures Referred By Contac t Referred To Contact XR IMAGING Diagnoses Other secondary kyphosis, thoracic region Procedures XR SCOLIOSIS PA STAND/LAT 2V RADEX ENTIR THRC LMBR CRV SAC SPI W/SKULL 2/3 VW Aris Baeza MD [address] [place] [address] Phone: tel: fax: [place] [address] Referral ID Status Reason Start Date Expiration Date V isits Requested Visits Authorized [id number] Closed Auto-Generate d Referral 03/13/2025 04/12/2025 1 1 Reason Comments Appeal letter Reason Comments Schedule Surgery Reason Comments Received a Letter from Dr. Baeza ref to up coming procedure on Reason Onset Date Comments Refill Request 04/04/2025 Reason Comments Dementia Reason Onset Date Comments Refill Request 04/10/2025 Reason Onset Date Comments Refill Request 04/11/2025 Reason Comments ER Discharge Summary H&P Goals (unrecognized section and content) Goals may be documented in a n alternate sectionGoals may be documented in an alternate sectionGoals may be documented in an alternate sectionGoals may be documented in an alternate sectionGoals may be documented in an alternate sectionGoals may be documented in an alternate sectionGoals may be documented in an alternate section (unrecognized sect ion and content) No Status Records FoundNo Status Records FoundNo Status Records FoundNo Status Records FoundNo Status Records FoundNo Status Records FoundNo Status Records Found INFORMATION SOURCE (unrecogn ized section and content) DATE CREATED AUTHOR 08/18/2022 [facility] DATE CREATED AUTHOR AUTHOR'S ORGANIZ ATION 08/28/2022 [facility] DATE CREATED AUTHOR AUTHOR'S ORGANIZ ATION 11/18/2022 [facility] DATE CREATED AUTHOR AUTHOR'S ORGANIZ ATION 01/31/2025 [facility] DATE CREATED AUTHOR AUTHOR'S ORGANIZ ATION 03/20/2025 [facility] DATE CREATED AUTHOR AUTHOR'S ORGANIZ ATION 04/15/2025 [facility] DATE CREATED AUTHOR AUTHOR'S ORGANIZ ATION 04/17/2025 [facility] Inactive Administered Medications - up to 3 most recent administrations Administered Medications (un recognized section and content) Medication Order MAR Action Action Date Dose Rate Site diphenhydrAMINE 12.5-50 mg injection (BENADRYL) 12.5-50 mg, INTRAVENOUS, DIRECTED, Starting on Connie 10/27/23 at 1030, Until Connie 10/27/23 at 1429, DOSING DIRECTED BY PHYSICIAN FOR PROCEDURAL SEDATION ONLY, Intraprocedure Given 10/27/2023 10:30 AM EST 50 mg fentaNYL 50 mcg/mL 25-100 mcg injection (SUBLIMAZE) 25-100 mcg, INTRAVENOUS, DIRECTED, Starting on Connie 10/27/23 at 1030, Until Connie 10/27/23 at 1429, DOSING DIRECTED BY PHYSICIAN FOR PROCEDURAL SEDATION ONLY, Intraprocedure Given 10/27/2023 10:36 AM EST 50 mcg Given 10/27/2023 10:28 AM EST 50 mcg lactated ringers iv infusion 30 mL/hr, INTRAVENOUS, CONTINUOUS, Starting on Connie 10/27/23 at 1030, Until Connie 10/27/23 at 1100, Preprocedure New Bag/Syringe/Bottle 10/27/2023 10:15 AM EST 30 mL/hr 30 mL/hr Wrist, Right midazolam (PF) 1-5 mg injection (VERSED) 1-5 mg, INTRAVENOUS, DIRECTED, Starting on Connie 10/27/23 at 1030, Until Connie 10/27/23 at 1429, DOSING DIRECTED BY PHYSICIAN FOR PROCEDURAL SEDATION ONLY, Intraprocedure Given 10/27/2023 10:33 AM EST 2 mg Given 10/27/2023 10:28 AM EST 3 mg Inactive Administered Medications - up to 3 most recent administrations Medication Order MAR Action Action Date Dose Rate Site 0.9% NaCl 10 mL flush 10 mL, OTHER, ONCE, 1 dose, On 11/14/23 at 1030 Given by [facility] 11/14/2023 10:30 AM EST 10 mL bupivacaine(PF) 0.75 % (7.5 mg/mL) 7.5 mg injection (MARCAINE PF) 7.5 mg, OTHER, ONCE, 1 dose, On 11/14/23 at 1030 Given by [facility] 11/14/2023 10:29 AM EST 7.5 mg dexAMETHasone sodium phosphate 10 mg injection (DECADRON) 10 mg, OTHER, ONCE, 1 dose, On Tue11/14/23 at 1030 Given by [facility] 11/14/2023 10:30 AM EST 10 mg lidocaine (PF) 20 mg/mL (2 %) 200 mg injection (XYLOCAINE) 200 mg, OTHER, ONCE, 1 dose, On 11/14/23 at 1030 Given by [facility] 11/14/2023 10:29 AM EST 200 mg FOR RECORDS PERTAINING TO PATIENTS WHO ARE OR HAVE BEEN ENROLLED IN A CHEMICAL DEPENDENCY/SUBSTANCEABUSE PROGRAM, SOME INFORMATION MAY BE OMITTED. This clinical summary was aggregated from multiple sources. Caution should be exercised in using it in the provision of clinical care. This summary normalizes information from multiple sources, and as a consequence, information in this document may materially change the coding, format and clinical context of patient data. In addition, data may be omitted in some cases. CLINICAL DECISIONS SHOULD BE BASED ON THE PRIMARY CLINICAL RECORDS. [facility]. provides no warranty or guarantee of the accuracy or completeness of information in this document.
[2025-04-18 08:27] LABS: Hematocrit 36.8 % (40-54); Hemoglobin 11.9 g/dL (13.0-16.5); Immature Granulocytes Count 0.000 X10^3/uL (0.0-0.0); Mean Corp Hgb Conc 32.3 g/dL (32-36); Mean Corpuscular Volume 97.9 fL (80-94); Mean Platelet Vol. 8.9 fl (6.2-12.0); NRBC Flagged by Analyzer 0 % (0-5); Platelet Count 259 K/mm3 (150-450); RBC Distribution Width CV 12.4 % (11.6-14.6); RBC Distribution Width SD 45.1 fl (35.1-43.9); Red Blood Count 3.76 M/mm3 (4.6-6.2); White Blood Count 4.7 K/mm3 (4.4-11.0)
[2025-04-18 08:43] LABS: AST(SGOT) 24 U/L (<=37); Alanine Aminotransfer ALT/SGPT 13 U/L (<=46); Albumin, Serum 3.7 g/dL (3.4-4.8); Alkaline Phosphatase 55 U/L (40-129); Anion Gap 9 (5-15); BUN 24 mg/dL (4-19); BUN/Creat Ratio 24.0 RATIO (10-20); Calcium,Total 9.3 mg/dL (7.6-11.0); Carbon Dioxide 28.5 mmol/L (21.0-32.0); Chloride 104 mmol/L (98-108); Globulin 2.5 g/dL (2.2-4.2); Glucose 90 mg/dL (70-99); Potassium 4.0 mmol/L (3.3-5.1)
== END ==
LOC: OLS.WHLTCC 05:00
PROVIDERS: PCP Family Medicine; Visit Provider Internal Medicine
DX: N18.2 Chronic kidney disease, stage 2 (mild) (principal); N39.0 Urinary tract infection, site not specified; M54.59 Other low back pain; M62.561 Muscle wasting and atrophy, not elsewhere classified, right lower leg; M62.562 Muscle wasting and atrophy, not elsewhere classified, left lower leg
CPT/HCPCS: 36415; 80053; 85025

== ENCOUNTER → 2025-04-25 05:00 | Outpatient (REF) | payer MEDICARE, SELFPAY ==
[2025-04-25 07:52] LABS: Hematocrit 39.1 % (40-54); Hemoglobin 12.7 g/dL (13.0-16.5); Immature Granulocytes Count 0.000 X10^3/uL (0.0-0.0); Mean Corp Hgb Conc 32.5 g/dL (32-36); Mean Corpuscular Volume 98.5 fL (80-94); Mean Platelet Vol. 9.4 fl (6.2-12.0); NRBC Flagged by Analyzer 0 % (0-5); Platelet Count 239 K/mm3 (150-450); RBC Distribution Width CV 12.6 % (11.6-14.6); RBC Distribution Width SD 45.6 fl (35.1-43.9); Red Blood Count 3.97 M/mm3 (4.6-6.2); White Blood Count 4.4 K/mm3 (4.4-11.0)
[2025-04-25 08:13] LABS: Anion Gap 11 (5-15); BUN 19 mg/dL (4-19); BUN/Creat Ratio 19.3 RATIO (10-20); Calcium,Total 9.5 mg/dL (7.6-11.0); Carbon Dioxide 26.6 mmol/L (21.0-32.0); Chloride 103 mmol/L (98-108); Glucose 90 mg/dL (70-99); Potassium 4.2 mmol/L (3.3-5.1)
== END ==
LOC: OLS.WHLTCC 05:00
PROVIDERS: PCP Family Medicine; Visit Provider Internal Medicine
DX: N39.0 Urinary tract infection, site not specified (principal); M54.59 Other low back pain; M62.561 Muscle wasting and atrophy, not elsewhere classified, right lower leg; M62.562 Muscle wasting and atrophy, not elsewhere classified, left lower leg; R48.8 Other symbolic dysfunctions
CPT/HCPCS: 36415; 80048; 85025

== ENCOUNTER → 2025-05-02 04:00 | Outpatient (REF) | payer BC, SELFPAY ==
[2025-05-02 08:52] LABS: Hematocrit 37.7 % (40-54); Hemoglobin 12.0 g/dL (13.0-16.5); Immature Granulocytes Count 0.010 X10^3/uL (0.0-0.0); Mean Corp Hgb Conc 31.8 g/dL (32-36); Mean Corpuscular Volume 98.2 fL (80-94); Mean Platelet Vol. 9.8 fl (6.2-12.0); NRBC Flagged by Analyzer 0 % (0-5); Platelet Count 173 K/mm3 (150-450); RBC Distribution Width CV 13.0 % (11.6-14.6); RBC Distribution Width SD 46.5 fl (35.1-43.9); Red Blood Count 3.84 M/mm3 (4.6-6.2); White Blood Count 4.0 K/mm3 (4.4-11.0)
[2025-05-02 09:06] LABS: Anion Gap 8 (5-15); BUN 27 mg/dL (4-19); BUN/Creat Ratio 26.2 RATIO (10-20); Calcium,Total 9.2 mg/dL (7.6-11.0); Carbon Dioxide 28.3 mmol/L (21.0-32.0); Chloride 102 mmol/L (98-108); Glucose 87 mg/dL (70-99); Potassium 4.2 mmol/L (3.3-5.1)
== END ==
LOC: OLS.WHLTCC 04:00
PROVIDERS: PCP Family Medicine; Referring Provider Internal Medicine; Visit Provider Internal Medicine
DX: R48.8 Other symbolic dysfunctions (principal); M62.561 Muscle wasting and atrophy, not elsewhere classified, right lower leg; M62.562 Muscle wasting and atrophy, not elsewhere classified, left lower leg
CPT/HCPCS: 36415; 80048; 85025

== ENCOUNTER → 2025-05-09 05:00 | Outpatient (REF) | payer BC, SELFPAY ==
[2025-05-09 09:08] LABS: Hematocrit 36.2 % (40-54); Hemoglobin 11.7 g/dL (13.0-16.5); Immature Granulocytes Count 0.010 X10^3/uL (0.0-0.0); Mean Corp Hgb Conc 32.3 g/dL (32-36); Mean Corpuscular Volume 97.6 fL (80-94); Mean Platelet Vol. 9.7 fl (6.2-12.0); NRBC Flagged by Analyzer 0 % (0-5); Platelet Count 150 K/mm3 (150-450); RBC Distribution Width CV 12.9 % (11.6-14.6); RBC Distribution Width SD 46.6 fl (35.1-43.9); Red Blood Count 3.71 M/mm3 (4.6-6.2); White Blood Count 4.4 K/mm3 (4.4-11.0)
[2025-05-09 09:59] LABS: Anion Gap 9 (5-15); BUN 18 mg/dL (4-19); BUN/Creat Ratio 21.0 RATIO (10-20); Calcium,Total 9.2 mg/dL (7.6-11.0); Carbon Dioxide 27.8 mmol/L (21.0-32.0); Chloride 102 mmol/L (98-108); Glucose 86 mg/dL (70-99); Potassium 3.9 mmol/L (3.3-5.1)
== END ==
LOC: OLS.WHLTCC 05:00
PROVIDERS: PCP Family Medicine; Visit Provider Internal Medicine
DX: R48.8 Other symbolic dysfunctions (principal); M62.562 Muscle wasting and atrophy, not elsewhere classified, left lower leg; M62.561 Muscle wasting and atrophy, not elsewhere classified, right lower leg; M54.59 Other low back pain
CPT/HCPCS: 36415; 80048; 85025

== ENCOUNTER → 2025-05-16 05:00 | Outpatient (REF) | payer MEDICARE, SELFPAY ==
[2025-05-16 08:33] LABS: Hematocrit 41.2 % (40-54); Hemoglobin 13.2 g/dL (13.0-16.5); Immature Granulocytes Count 0.010 X10^3/uL (0.0-0.0); Mean Corp Hgb Conc 32.0 g/dL (32-36); Mean Corpuscular Volume 98.6 fL (80-94); Mean Platelet Vol. 9.5 fl (6.2-12.0); NRBC Flagged by Analyzer 0 % (0-5); Platelet Count 209 K/mm3 (150-450); RBC Distribution Width CV 13.2 % (11.6-14.6); RBC Distribution Width SD 47.5 fl (35.1-43.9); Red Blood Count 4.18 M/mm3 (4.6-6.2); White Blood Count 5.2 K/mm3 (4.4-11.0)
[2025-05-16 08:45] LABS: Anion Gap 12 (5-15); BUN 19 mg/dL (4-19); BUN/Creat Ratio 20.0 RATIO (10-20); Calcium,Total 9.9 mg/dL (7.6-11.0); Carbon Dioxide 27.0 mmol/L (21.0-32.0); Chloride 100 mmol/L (98-108); Glucose 86 mg/dL (70-99); Potassium 4.2 mmol/L (3.3-5.1)
== END ==
LOC: OLS.WHLTCC 05:00
PROVIDERS: PCP Family Medicine; Visit Provider Internal Medicine
DX: N39.0 Urinary tract infection, site not specified (principal); M54.59 Other low back pain; M62.561 Muscle wasting and atrophy, not elsewhere classified, right lower leg; M62.562 Muscle wasting and atrophy, not elsewhere classified, left lower leg; R48.8 Other symbolic dysfunctions
CPT/HCPCS: 36415; 80048; 85025

== ENCOUNTER → 2025-05-23 05:00 | Outpatient (REF) | payer MEDICARE, SELFPAY ==
[2025-05-23 09:13] LABS: Hematocrit 36.0 % (40-54); Hemoglobin 11.8 g/dL (13.0-16.5); Immature Granulocytes Count 0.010 X10^3/uL (0.0-0.0); Mean Corp Hgb Conc 32.8 g/dL (32-36); Mean Corpuscular Volume 97.8 fL (80-94); Mean Platelet Vol. 9.4 fl (6.2-12.0); NRBC Flagged by Analyzer 0 % (0-5); Platelet Count 209 K/mm3 (150-450); RBC Distribution Width CV 13.2 % (11.6-14.6); RBC Distribution Width SD 47.4 fl (35.1-43.9); Red Blood Count 3.68 M/mm3 (4.6-6.2); White Blood Count 3.7 K/mm3 (4.4-11.0)
[2025-05-23 09:29] LABS: Anion Gap 9 (5-15); BUN 21 mg/dL (4-19); BUN/Creat Ratio 22.8 RATIO (10-20); Calcium,Total 9.1 mg/dL (7.6-11.0); Carbon Dioxide 27.1 mmol/L (21.0-32.0); Chloride 101 mmol/L (98-108); Glucose 79 mg/dL (70-99); Potassium 3.9 mmol/L (3.3-5.1)
== END ==
LOC: OLS.WHLTCC 05:00
PROVIDERS: PCP Family Medicine; Visit Provider Internal Medicine
DX: N39.0 Urinary tract infection, site not specified (principal); M54.59 Other low back pain; M62.561 Muscle wasting and atrophy, not elsewhere classified, right lower leg; M62.562 Muscle wasting and atrophy, not elsewhere classified, left lower leg; R48.8 Other symbolic dysfunctions
CPT/HCPCS: 36415; 80048; 85025

== ENCOUNTER → 2025-06-27 | Outpatient (CLI) | payer MEDICARE, SELFPAY ==
--- NOTE | 2025-06-27 09:30 | RAD_ITS ---
PROCEDURE: ESOPHAGUS DUAL CONTRAST 06/27/2025 REASON FOR EXAM: DYSPHAGIA Trouble swallowing, esophageal diverticula surgery TECHNIQUE: ESOPHAGUS DUAL CONTRAST FLUOROSCOPIC TIME: 221 seconds FLUOROGRAPHIC IMAGES: 60 COMPARISON: None FINDINGS: Contrast given to swallow demonstrates tortuous esophagus with pooling of contrast material and tertiary contractures. There is hiatal hernia. Narrowing of the distal esophagus. Spontaneous esophageal reflux. The standard barium tablet progresses through the esophagus however it is stuck in the distal esophagus but eventually empties into the stomach. RAD/Esophagus Dual Contrast IMPRESSION: Significant esophageal dysmotility with tortuosity of the esophagus. There is n arrowing of the distal esophagus. This is a significant narrowing with the standard barium tablet caught and dislocation ho wever eventually pass. Reading Location: [place] [address]
== END | disposition home or self-care (01) ==
PROVIDERS: PCP Family Medicine; Referring Provider Otolaryngology; Visit Provider Otolaryngology
DX: R13.10 Dysphagia, unspecified (principal)
CPT/HCPCS: 74221

== ENCOUNTER → 2025-07-04 06:05 | Outpatient (REF) | payer MEDICARE, SELFPAY ==
[2025-07-04 09:56] LABS: Anion Gap 7 (5-15); BUN 19 mg/dL (4-19); BUN/Creat Ratio 20.4 RATIO (10-20); Calcium,Total 9.1 mg/dL (7.6-11.0); Carbon Dioxide 28.7 mmol/L (21.0-32.0); Chloride 105 mmol/L (98-108); Cholesterol 150 mg/dL (<=200); Glucose 89 mg/dL (70-99); Low Density Lipoprotein Calc. 64 mg/dL; Potassium 4.1 mmol/L (3.3-5.1); Triglycerides 69 mg/dL; Very Low Density Lipoprotein 14 mg/dL (5-40); cholesterol:hdl ratio screen 2.09
== END ==
LOC: OLS.WHLTCC 06:05
PROVIDERS: PCP Family Medicine; Visit Provider Internal Medicine
DX: N39.0 Urinary tract infection, site not specified (principal); M54.59 Other low back pain; M25.561 Pain in right knee; M62.561 Muscle wasting and atrophy, not elsewhere classified, right lower leg; D64.9 Anemia, unspecified
CPT/HCPCS: 36415; 80048; 80061; 83036

== ENCOUNTER 2025-07-13 08:53 | Emergency (ER) | payer MEDICARE, SELFPAY ==
[2025-07-13 08:54] VITALS: BP 129/65; PULSE 68; RESP 16; TEMP 36.5; O2SAT 100
--- NOTE | 2025-07-13 09:11 | EKG12_ITS ---
Test Reason : Blood Pressure : */* mmHG Vent. Rate : 61 BPM Atrial Rate : 61 BPM P-R Int : 178 ms QRS Dur : 148 ms QT Int : 446 ms P-R-T Axes : 43 27 63 degrees QTcB Int : 448 ms Normal sinus rhythm Right bundle branch block Septal infarct (cited on or before 08-Jan-2025) Abnormal ECG Confirmed by VIDYA FAIRBANKS, EVE ([id number]), technical editor LEONARD MCDONOUGH ([id number]) on 07/15/2025 6:42:38 AM Referred By: Confirmed By: EVE DASILVA MD
--- NOTE | 2025-07-13 09:13 | EX.ED.DYSGE1 ---
HPI History of Present Illness Chief Complaint: General Illness Informant: patient and spouse/S.O. Narrative Narrative: Patient is an 84-year-old male with a history of recurrent UTIs, HTN, and a previous hernia repair, presenting with several days of recurrent shivering and feeling very cold. Patient is accompanied by his , who is supplementing history. - Onset of shivering began a couple of days ago; similar episodes have occurred with previous UTIs. - No symptoms with urination; urinated twice before arrival to avoid needing to do so in the ED. - Reports lower abdominal pain, described as painful to the touch; this pain is not new and is associated with previous hernia repair and possible mesh irritation. - Denies any new or unusual pain, including in the lower back; has a mike in his back but is not currently experiencing pain. - Denies emesis. - Recently discharged from [facility] about a week ago after a 3-month stay for rehabilitation following multiple falls. - Scheduled to see Dr. Barnhart for an esophageal issue on Tuesday. - Taking one antihypertensive medication; previously on two, but one was discontinued due to low blood pressure. [facility] Medical History Falls Acute UTI Weakness UTI (urinary tract infection) Migraines History of ESBL E. coli infection Anxiety Depression Kidney stones Kidney disease Former smoker Anxiety and depression HLD (hyperlipidemia) CKD (chronic kidney disease), stage II Dementia Left inguinal hernia Groin pain Inguinal hernia bilateral, non-recurrent Right inguinal hernia History of kidney stones History of hiatal hernia Abdominal pain BPH (benign prostatic hyperplasia) Arthritis History of back problems Hypertension Home Medications ?Medication ?Instructions ?Recorded ?Last Taken ?Type acetaminophen 500 mg tablet 1,000 mg PO PRN Pain 04/03/17 Unknown History metronidazole 0.75 % topical cream 1 applic topical DAILY skin health 07/16/19 01/07/25 History aspirin 81 mg tablet,delayed 81 mg PO QHS heart health 01/28/21 01/07/25 History release (Rika Low Dose Aspirin) multivitamin 1 tab PO DAILY vitamin 05/18/21 01/07/25 History pantoprazole 40 mg tablet,delayed 40 mg PO DAILY reflux 05/03/22 01/07/25 History release d-mannose 1 ea PO DAILY 09/24/23 01/07/25 History dupilumab 300 mg/2 mL subcutaneous 300 mg subcut .COMPLEX skin health 09/24/23 Unknown History pen injector (Dupixent) lisinopril 5 mg tablet 5 mg PO DAILY blood pressure 09/24/23 Unknown History BACLOFEN SUPPOSITORY 1 supp OTHER DAILY CONSITPATION 01/08/25 04/11/25 20:00 History Lactobacillus acidophilus 10 80 mmu cells PO DAILY 01/08/25 01/07/25 History billion cell capsule (NewFlora) donepezil 5 mg tablet 10 mg PO DAILY 01/08/25 01/07/25 History furosemide 20 mg tablet 20 mg PO DAILY 01/08/25 01/07/25 History guaifenesin 600 mg tablet, 600 mg PO BID 01/08/25 01/07/25 History extended release 12 hr (Mucinex) melatonin 5 mg tablet 5 mg PO QHS 01/08/25 01/07/25 History memantine 10 mg tablet 10 mg PO BID 01/08/25 01/07/25 History methenamine hippurate 1 gram tablet 1 g PO BID 01/08/25 01/07/25 History plecanatide 3 mg tablet (Trulance) 3 mg PO DAILY 01/08/25 Unknown History sertraline 25 mg tablet 25 mg PO DINNER 01/08/25 01/07/25 History trazodone 100 mg tablet 100 mg PO QHS 01/08/25 01/07/25 History triamcinolone acetonide 1 applic topical DAILY PRN itching 01/08/25 01/07/25 History hydrochlorothiazide 12.5 mg tablet 12.5 mg PO DAILY 01/29/25 Unknown History ipratropium bromide 21 mcg (0.03 intranasal md ordered 04/12/25 04/13/25 10:00 History %) nasal spray 21mcg polyethylene glycol 3350 17 4 g PO DAILY 04/12/25 Unknown History gram/dose oral powder (Miralax) sertraline 25 mg tablet (Zoloft) 25 mg PO LUNCH 04/12/25 Unknown History cephalexin 500 mg capsule 500 mg PO Q6 #28 CAPSULES 07/13/25 Unknown Rx Allergy/AdvReac Type Severity Reaction Status Date / Time Iodinated Contrast Media Allergy Hives Verified 07/13/25 08:56 (CONTRASTS) azelaic acid (From Finacea) AdvReac Rash Verified 07/13/25 08:56 levofloxacin AdvReac Rash Verified 07/13/25 08:56 meloxicam (From Mobic) AdvReac Nausea Verified 07/13/25 08:56 misoprostol (From Cytotec) AdvReac Nausea Verified 07/13/25 08:56 nabumetone (From Relafen) AdvReac Nausea Verified 07/13/25 08:56 NSAIDS (Non-Steroidal AdvReac Nausea Verified 07/13/25 08:56 Anti-Inflamma sulfamethoxazole (From AdvReac Nausea Verified 07/13/25 08:56 Bactrim) terbinafine AdvReac Nausea Verified 07/13/25 08:56 trimethoprim (From Bactrim) AdvReac Nausea Verified 07/13/25 08:56 valdecoxib (From Bextra) AdvReac Other Verified 07/13/25 08:56 Family History Father Colon cancer Mother Cancer lung Hypertension Brother Cancer Surgical History History of cholecystectomy History of left inguinal hernia repair (~07/18/19) History of right inguinal hernia repair History of colonoscopy (~02/2019) history repair left thumb History of hemorrhoidectomy History of bilateral cataract extraction history ureteral stent insertion History of laparoscopic cholecystectomy history lap hiatal hernia repair Hx of repair of right rotator cuff Hx of repair of left rotator cuff history exacorporeal shock wave lithrotripsy Social History household members: spouse Smoking Status: Former smoker alcohol intake: current alcohol intake frequency: a few times a month substance use type: does not use ROS ROS ED Constitutional Constitutional ED: Reports chills; Denies fever(s) Eyes Eyes: Denies change in vision or diplopia ENT ENT ED: Denies rhinorrhea or sore throat Cardiovascular Cardiovascular: Denies chest pain or palpitations Respiratory/Chest Respiratory/Chest: Denies cough or dyspnea Gastrointestinal Gastrointestinal: Reports abdominal pain; Denies diarrhea, nausea or vomiting Genitourinary Genitourinary ED: Denies dysuria, hematuria or urinary frequency Musculoskeletal Musculoskeletal: Denies back pain or neck pain Integumentary Denies abscess or rash Neurologic Neurologic: Denies headache(s), paresthesias or weakness Psychiatric Psychiatric: Denies suicidal thoughts EXAM Physical Exam Const Vital Signs: 07/13/25 08:54 Temperature 97.7 F L Temperature Source Oral Pulse Rate 68 Respiratory Rate 16 Blood Pressure 129/65 H Blood Pressure Mean 86 Pulse Ox 100 Oxygen Delivery Method Room Air Positive well nourished and well developed General Appearance ED: well developed and NAD HEENT Reports moist mucous membranes normocephalic and atraumatic Eyes PERRL and EOMs intact bilaterally Neck full ROM and supple Resp normal respiratory effort and clear to auscultation bilaterally Cardio regular rate and regular rhythm Cardio Narrative: Faint heart sounds GI non-distended GI Narrative: Mild suprapubic and left pelvic tenderness without guarding or rebound or pulsatile mass. Benign abdomen overall. Auscultation: normoactive bowel sounds Palpation: soft Back/Spine no CVA tenderness General Back: other FROM Extremity normal to inspection General Extremety ED: Negative for edema, pulses abnormal or tenderness General Extremity: Negative for edema or pulses abnormal Neuro CN's II-XII intact bilaterally and no sensory deficits noted Sensorium / Orientation: awake and alert Motor Exam: strength 5/5 throughout Skin no rashes or lesions noted and no wounds MDM MDM MDM Narrative Medical decision making narrative: Assessment: The patient is an 84-year-old male with PMH of hypertension, prior hernia repair with mesh, chronic low-back pain status-post mike placement, recent prolonged rehabilitation stay for multiple falls, and prior urinary tract infections presenting with several days of persistent rigors and feeling ?very cold,? concerning for recurrent urinary tract infection. Initial vitals notable only for mild tachycardia that resolved to 68 bpm on re-evaluation; otherwise he remained normothermic and hemodynamically stable. Septic work-up revealed a normal lactate and leukopenia (WBC 3.7). Two-view chest X-ray was interpreted by me and radiology as without acute pneumonia. Urinalysis demonstrated evidence of infection; urine sent for culture. In the setting of suggestive urinalysis, prior similar episodes, absence of alternative infectious source, and reassuring systemic markers, uncomplicated urinary tract infection is the most likely diagnosis. Blood cultures deferred given normal lactate, low WBC, and stable appearance. Plan: - Administered IV Rocephin 1 g in ED. - Prescribed cephalexin for 7 days as outpatient therapy (Bactrim avoided due to intolerance; fluoroquinolones avoided due to prior rash with levofloxacin). - Discussed inpatient versus outpatient management; patient and prefer discharge home and are comfortable with outpatient plan. - Provided return precautions and reviewed signs of clinical worsening; verbal understanding confirmed. - Discharged home in stable condition with . Diagnostics: - Labs: Lactate normal; CBC WBC 3.7. - Urinalysis: positive for infection; urine sent for culture. - Chest X-ray, 2-view, interpreted by me and radiology: no acute pneumonia. Reevaluations: - Tachycardia resolved; repeat pulse 68, patient well-appearing and hemodynamically stable; in agreement with discharge. Lab Data Attestation: I reviewed the patient's lab results. Labs: Laboratory Results - last 24 hr 07/13/25 07/13/25 09:30 10:37 WBC 3.7 L RBC 4.03 L Hgb 12.8 L Hct 39.4 L MCV 97.8 H MCH 31.8 MCHC 32.5 RDW Std Deviation 47.1 H RDW Coeff of Ezequiel 13.1 Plt Count 168 MPV 9.2 Immature Gran % (Auto) 0.300 Neut % (Auto) 49.1 Lymph % (Auto) 38.8 [place] % (Auto) 9.4 Eos % (Auto) 1.9 Baso % (Auto) 0.5 Absolute Neuts (auto) 1.8 L Absolute Lymphs (auto) 1.45 Nucleated RBC % 0 PT 13.7 INR 1.0 APTT 27.6 Sodium 143 Potassium 4.2 Chloride 106 Carbon Dioxide 28.7 Anion Gap 9 BUN 31 H Creatinine 0.77 Est GFR (MDRD) Non-Af 89 BUN/Creatinine Ratio 39.5 H Glucose 100 H Lactic Acid < 1.0 Calcium 9.1 Total Bilirubin 0.68 AST 18 ALT 14 Alkaline Phosphatase 52 Troponin T High Sens 19 D Total Protein 6.3 Albumin 4.2 Globulin 2.1 L Albumin/Globulin Ratio 2.0 Urine Color Yellow Urine Clarity Cloudy Urine pH 7.0 Ur Specific [place] 1.010 Urine Protein 30 H Urine Glucose (UA) Normal Urine Ketones Negative Urine Occult Blood 25 H Urine Nitrite Positive H Urine Bilirubin Negative Urine Urobilinogen Normal Ur Leukocyte Esterase 500 H Urine RBC 5-10 SEEN Urine WBC 25-50 SEEN Ur Squamous Epith Cells 0 SEEN Urine Bacteria 3+ Urine Mucus 0 SEEN Radiography Diagnostic Testing: Clinical Impression(s) from Imaging Studies Chest X-Ray 07/13/25 09:50 IMPRESSION: No acute cardiopulmonary process. Reading Location: [facility] Rhythm Strip Rhythm Strip: Sinus Rhythm Rate: 65 Ectopy: None EKG Initial EKG: Attestation: I personally reviewed and interpreted this EKG as follows: Interpretation: Sinus Rhythm, No Acute Injury Pattern and RBBB Prior: Changed (c/w 04/12/25 - no RBBB) Discharge Plan Triage Chief Complaint: General Illness ED Provider: Hector Baxter Dx/Rx/DC Orders Clinical Impression: Acute lower urinary tract infection, Chills (without fever), Chronic suprapubic pain Instructions: Urinary Tract Infections in Men Prescriptions: New cephalexin 500 mg capsule 500 mg PO Q6 Qty: 28 0RF Continued metronidazole 0.75 % cream 1 applic TOPICAL DAILY acetaminophen 500 MG tablet 1,000 mg PO PRN aspirin [Rika Low Dose Aspirin] 81 mg Tablet,Delayed Release (Dr/Ec) 81 mg PO QHS multivitamin Tablet 1 tab PO DAILY pantoprazole 40 mg Tablet,Delayed Release (Dr/Ec) 40 mg PO DAILY lisinopril 5 mg tablet 5 mg PO DAILY d-mannose Powder 1 ea PO DAILY Rx Instructions: 1/4 teaspoon on cereal each am. Dupixent Pen 300 mg/2 mL pen injector 300 mg subcut .COMPLEX Rx Instructions: 300 mg subcutaneously EVERY 8 WEEKS; donepezil 5 mg tablet 10 mg PO DAILY trazodone 100 mg tablet 100 mg PO QHS furosemide 20 mg tablet 20 mg PO DAILY memantine 10 mg tablet 10 mg PO BID methenamine hippurate 1 gram tablet 1 g PO BID sertraline 25 mg tablet 25 mg PO DINNER triamcinolone acetonide 1 applic topical DAILY PRN (Reason: itching) melatonin 5 mg tablet 5 mg PO QHS NewFlora 10 billion cell capsule 80 mmu cells PO DAILY guaifenesin [Mucinex] 600 mg tablet extended release 12hr 600 mg PO BID Trulance 3 mg tablet 3 mg PO DAILY Patient Comments: ON 12/13/24 BACLOFEN SUPPOSITORY 1 supp OTHER DAILY hydrochlorothiazide 12.5 mg tablet 12.5 mg PO DAILY polyethylene glycol 3350 [Miralax] 17 gram/dose powder 4 g PO DAILY sertraline [Zoloft] 25 mg tablet 25 mg PO LUNCH Rx Instructions: lunch ipratropium bromide 21 mcg (0.03 %) spray,non-aerosol INTRANASAL Patient Comments: [NO ORIGINAL SIG] Discontinued cefdinir 300 mg Capsule 300 mg PO Q12 Qty: 8 0RF Primary Care Provider: Francisco Bahena Referrals: Francisco Bahena MD [Primary Care Provider, Family Practice] Print Language: Turkish
[2025-07-13 09:45] LABS: Hematocrit 39.4 % (40-54); Hemoglobin 12.8 g/dL (13.0-16.5); Immature Granulocytes Count 0.010 X10^3/uL (0.0-0.0); Mean Corp Hgb Conc 32.5 g/dL (32-36); Mean Corpuscular Volume 97.8 fL (80-94); Mean Platelet Vol. 9.2 fl (6.2-12.0); NRBC Flagged by Analyzer 0 % (0-5); Platelet Count 168 K/mm3 (150-450); RBC Distribution Width CV 13.1 % (11.6-14.6); RBC Distribution Width SD 47.1 fl (35.1-43.9); Red Blood Count 4.03 M/mm3 (4.6-6.2); White Blood Count 3.7 K/mm3 (4.4-11.0)
--- NOTE | 2025-07-13 09:50 | RAD_ITS ---
EXAM: XR Chest, 1 View CLINICAL INDICATION: FEVER/CHILLS TECHNIQUE: Frontal view of the chest. COMPARISON: No relevant prior studies available. FINDINGS: LUNGS AND PLEURAL SPACES: Unremarkable. No consolidation. No pneumothorax. HEART: Unremarkable. No cardiomegaly. MEDIASTINUM: Unremarkable. Normal mediastinal contour. BONES/JOINTS: Unremarkable. No acute fracture. RAD/Chest PA and Lateral IMPRESSION: No acute cardiopulmonary process. Reading Location: [id number]
[2025-07-13 09:55] LABS: Prothrombin Time (Protime)PT. 13.7 SECONDS (11.7-14.9)
[2025-07-13 09:56] LABS: Partial Thromboplast Time 27.6 Seconds (24.1-36.2)
[2025-07-13 10:13] LABS: AST(SGOT) 18 U/L (<=37); Alanine Aminotransfer ALT/SGPT 14 U/L (<=46); Albumin, Serum 4.2 g/dL (3.4-4.8); Alkaline Phosphatase 52 U/L (40-129); Anion Gap 9 (5-15); BUN 31 mg/dL (4-19); BUN/Creat Ratio 39.5 RATIO (10-20); Calcium,Total 9.1 mg/dL (7.6-11.0); Carbon Dioxide 28.7 mmol/L (21.0-32.0); Chloride 106 mmol/L (98-108); Globulin 2.1 g/dL (2.2-4.2); Glucose 100 mg/dL (70-99); Potassium 4.2 mmol/L (3.3-5.1)
[2025-07-13 10:26] LABS: Troponin T High Sensitivity 19 ng/L (<=22)
[2025-07-13 10:43] LABS: Mucous, Urine 0 SEEN /hpf (<or=2+); Squamous Epithelial Cells - UA 0 SEEN /hpf (0-5)
[2025-07-13 10:47] LABS: Color, Urine Yellow (Yellow); Glucose, Dipstick Normal (Normal); Ketone-Dipstick Negative (Negative); Leukocyte Esterase-Dipstick 500 /ul (Negative); Nitrite-Dipstick Positive (Negative); Occult Blood-Urine 25 /ul (Negative); Protein-Dipstick 30 mg/dl (Negative); Specific Gravity, Urine 1.010 (1.002-1.030); Urine Bilirubin Dipstick Negative (Negative)
[2025-07-13 11:06] LABS: Red Blood Cells-Urine 5-10 SEEN /hpf (0-5)
[2025-07-13 12:27] VITALS: BP 140/72; PULSE 80; RESP 18; TEMP 36.6; O2SAT 99
[2025-07-13 12:50] LABS: Troponin T High Sens 2 HR 17 ng/L (<=22)
--- NOTE | 2025-07-15 16:34 | ED.RN ---
Called and let her know that new Rx was sent to the hospital pharmacy for macrobid. Pts will go get the RX
== END 2025-07-13 12:28 | disposition home or self-care (01) ==
PROVIDERS: Emergency Provider Emergency Medicine; PCP Family Medicine; Visit Provider Emergency Medicine
DX: N39.0 Urinary tract infection, site not specified (principal); I12.9 Hypertensive chronic kidney disease with stage 1 through stage 4 chronic kidney disease, or unspecified chronic kidney disease; N18.2 Chronic kidney disease, stage 2 (mild); R68.83 Chills (without fever); R10.30 Lower abdominal pain, unspecified; G89.29 Other chronic pain; Z87.891 Personal history of nicotine dependence
CPT/HCPCS: 71046; 80053; 81001; 83605; 84484; 85025; 85610; 85730; 87077; 87086; 87088; 87186; 93005; 96365; 99284; A4216

== ENCOUNTER 2025-08-23 18:04 | Emergency (ER) | payer MEDICARE, SELFPAY ==
[2025-08-23 18:10] VITALS: BP 117/58; PULSE 76; RESP 18; TEMP 36.4; O2SAT 100
[2025-08-23 18:13] VITALS: BMI 23.7
--- NOTE | 2025-08-23 18:34 | CT_ITS ---
PROCEDURE: SPINE LUMBAR WITHOUT CONTRAST 08/23/2025 REASON FOR EXAM: FALL LOW BACK PAIN TECHNIQUE: Procedure Code: CTSPL Modality: CT Procedure: SPINE LUMBAR WITHOUT CONTRAST Coronal and Sagittal reconstruction series were provided. One or more dose reduction techniques were used (e.g., Automated exposure control, adjustment of the mA and/or kV according to patient size, use of iterative reconstruction technique COMPARISON: Lumbar spine MRI 01/08/2025, CT abdomen and pelvis 09/24/2023 RADIATION DOSE SUMMARY: CTDlvol: 22.6 mGy DLP: 701 mGycm FINDINGS: Postoperative changes from L3 through S1, without hardware fracture or significant perihardware lucency. Mild anterior wedging of the T12 vertebral body is unchanged. Lumbar vertebral body heights are maintained. There is unchanged rightward curvature of the lumbar spine, and grade 1 anterolisthesis of L5 on S1. There are advanced multilevel degenerative changes throughout the spine. There is a calcification at the left ureteropelvic junction measuring 7 mm. There are additional nonobstructing stones in the left kidney. Extensive aortic atherosclerosis. Common bile duct measures 1.5 cm, unchanged. CT/Spine Lumbar without Contrast IMPRESSION: 1. No displaced fracture or traumatic malalignment of the lumbar spine. Posto perative changes without evidence of hardware complication. 2. Advanced multilevel degenerative changes, better evaluated on recent MRI. 3. Calcification at the left ureteropelvic junction measuring 7 mm may represe nt a stone or vascular calcification. Reading Location: [facility]
--- NOTE | 2025-08-23 18:38 | EDS_ITS ---
HPI HPI - Fall History of Present Illness Chief Complaint: Fall Narrative Narrative: This is an 84-year-old male who presents to the emergency department after a fall today. Around noon he was in his home walking with his walker. He states the walker fell back on him and he fell backwards striking his head on the door and falling to the ground onto his back. He did not lose consciousness. He states he is not anticoagulated. He immediately called for his who came to his assistance. They were able to have the patient scoot over to the stairs and he was able to stand up with his walker. They then got the patient into bed and he took a nap. When he woke up he had pretty severe pain in the low back. He is not able to walk well with his walker due to pain in the left lower back. He has not had any headache or neck pain. No upper back pain. No chest pain or shortness of breath. No hip pain. [facility] Medical History Migraines Falls Acute UTI Weakness History of ESBL E. coli infection Anxiety Depression Kidney stones Kidney disease Former smoker Anxiety and depression HLD (hyperlipidemia) CKD (chronic kidney disease), stage II Dementia UTI (urinary tract infection) Left inguinal hernia Groin pain Inguinal hernia bilateral, non-recurrent Right inguinal hernia History of kidney stones History of hiatal hernia Abdominal pain BPH (benign prostatic hyperplasia) Arthritis History of back problems Hypertension Home Medications Medication Instructions Recorded Last Taken Type acetaminophen 500 mg tablet 1,000 mg PO PRN Pain 04/03 Unknown History metronidazole 0.75 % topical cream 1 applic topical DA [facility] skin health 07/16/19 01/07/25 History aspirin 81 mg tablet,delayed 81 mg PO HS heart health 01/28/21 01/07/25 History release (Rika Low Dose Aspirin) multivitamin 1 tab PO DAILY vitamin 05/1801/07/25 History pantoprazole 40 mg tablet,delayed 40 mg PO DAILY reflu x 05/03/22 01/07/25 History release d-mannose 1 ea PO DAILY 09/24/2301/07 History dupilumab 300 mg/2 mL subcutaneous 300 mg subcut .COMP LUIS skin health 09/24/23 Unknown History pen injector (Dupixent) lisinopril 5 mg tablet 5 mg PO DAILY blood pressure 09/24/23 Unknown History BACLOFEN SUPPOSITORY 1 supp OTHER DAILY CONSITPAT ION 01/08/25 04/11/25 20:00 History Lactobacillus acidophilus 10 80 mmu cells PO DAILY 01/07/25 History billion cell capsule (NewFlora) donepezil 5 mg tablet 10 mg PO DAILY 01/08/2512/25 History furosemide 20 mg tablet 20 mg PO DAILY 01/08/2512/25 History guaifenesin 600 mg tablet, 600 mg PO BID 01/08/2512/25 History extended release 12 hr (Mucinex) melatonin 5 mg tablet 5 mg PO QHS 01/08/25 5 History memantine 10 mg tablet 10 mg PO BID 01/08/25
--- NOTE | 2025-08-23 18:38 | ED.VIS.FALL ---
HPI HPI - Fall History of Present Illness Chief Complaint: Fall Narrative Narrative: This is an 84-year-old male who presents to the emergency department after a fall today. Around noon he was in his home walking with his walker. He states the walker fell back on him and he fell backwards striking his head on the door and falling to the ground onto his back. He did not lose consciousness. He states he is not anticoagulated. He immediately called for his who came to his assistance. They were able to have the patient scoot over to the stairs and he was able to stand up with his walker. They then got the patient into bed and he took a nap. When he woke up he had pretty severe pain in the low back. He is not able to walk well with his walker due to pain in the left lower back. He has not had any headache or neck pain. No upper back pain. No chest pain or shortness of breath. No hip pain. [facility] Medical History Migraines Falls Acute UTI Weakness History of ESBL E. coli infection Anxiety Depression Kidney stones Kidney disease Former smoker Anxiety and depression HLD (hyperlipidemia) CKD (chronic kidney disease), stage II Dementia UTI (urinary tract infection) Left inguinal hernia Groin pain Inguinal hernia bilateral, non-recurrent Right inguinal hernia History of kidney stones History of hiatal hernia Abdominal pain BPH (benign prostatic hyperplasia) Arthritis History of back problems Hypertension Home Medications Medication Instructions Recorded Last Taken Type acetaminophen 500 mg tablet 1,000 mg PO PRN Pain 04/03/17 Unknown History metronidazole 0.75 % topical cream 1 applic topical DAILY skin health 07/16/19 01/07/25 History aspirin 81 mg tablet,delayed 81 mg PO QHS heart health 01/28/21 01/07/25 History release (Rika Low Dose Aspirin) multivitamin 1 tab PO DAILY vitamin 05/18/21 01/07/25 History pantoprazole 40 mg tablet,delayed 40 mg PO DAILY reflux 05/03/22 01/07/25 History release d-mannose 1 ea PO DAILY 09/24/23 01/07/25 History dupilumab 300 mg/2 mL subcutaneous 300 mg subcut .COMPLEX skin health 09/24/23 Unknown History pen injector (Dupixent) lisinopril 5 mg tablet 5 mg PO DAILY blood pressure 09/24/23 Unknown History BACLOFEN SUPPOSITORY 1 supp OTHER DAILY CONSITPATION 01/08/25 04/11/25 20:00 History Lactobacillus acidophilus 10 80 mmu cells PO DAILY 01/08/25 01/07/25 History billion cell capsule (NewFlora) donepezil 5 mg tablet 10 mg PO DAILY 01/08/25 01/07/25 History furosemide 20 mg tablet 20 mg PO DAILY 01/08/25 01/07/25 History guaifenesin 600 mg tablet, 600 mg PO BID 01/08/25 01/07/25 History extended release 12 hr (Mucinex) melatonin 5 mg tablet 5 mg PO QHS 01/08/25 01/07/25 History memantine 10 mg tablet 10 mg PO BID 01/08/25 01/07/25 History methenamine hippurate 1 gram tablet 1 g PO BID 01/08/25 01/07/25 History plecanatide 3 mg tablet (Trulance) 3 mg PO DAILY 01/08/25 Unknown History sertraline 25 mg tablet 25 mg PO DINNER 01/08/25 01/07/25 History trazodone 100 mg tablet 100 mg PO QHS 01/08/25 01/07/25 History triamcinolone acetonide 1 applic topical DAILY PRN itching 01/08/25 01/07/25 History hydrochlorothiazide 12.5 mg tablet 12.5 mg PO DAILY 01/29/25 Unknown History ipratropium bromide 21 mcg (0.03 intranasal md ordered 04/12/25 04/13/25 10:00 History %) nasal spray 21mcg polyethylene glycol 3350 17 4 g PO DAILY 04/12/25 Unknown History gram/dose oral powder (Miralax) sertraline 25 mg tablet (Zoloft) 25 mg PO LUNCH 04/12/25 Unknown History nitrofurantoin 100 mg PO Q12H 7 days #14 caps 07/15/25 Unknown Rx monohydrate/macrocrystals 100 mg capsule (Macrobid) oxycodone 5 mg capsule 5 mg PO Q8H PRN pain 2 days #6 caps 08/23/25 Unknown Rx Allergy/AdvReac Type Severity Reaction Status Date / Time Iodinated Contrast Media Allergy Hives Verified 08/23/25 18:11 (CONTRASTS) azelaic acid (From Finacea) AdvReac Rash Verified 08/23/25 18:11 levofloxacin AdvReac Rash Verified 08/23/25 18:11 meloxicam (From Mobic) AdvReac Nausea Verified 08/23/25 18:11 misoprostol (From Cytotec) AdvReac Nausea Verified 08/23/25 18:11 nabumetone (From Relafen) AdvReac Nausea Verified 08/23/25 18:11 NSAIDS (Non-Steroidal AdvReac Nausea Verified 08/23/25 18:11 Anti-Inflamma sulfamethoxazole (From AdvReac Nausea Verified 08/23/25 18:11 Bactrim) terbinafine AdvReac Nausea Verified 08/23/25 18:11 trimethoprim (From Bactrim) AdvReac Nausea Verified 08/23/25 18:11 valdecoxib (From Bextra) AdvReac Other Verified 08/23/25 18:11 Family History Father Colon cancer Mother Cancer lung Hypertension Brother Cancer Surgical History Previous back surgery History of cholecystectomy History of left inguinal hernia repair (~07/18/19) History of right inguinal hernia repair History of colonoscopy (~02/2019) history repair left thumb History of hemorrhoidectomy History of bilateral cataract extraction history ureteral stent insertion History of laparoscopic cholecystectomy history lap hiatal hernia repair Hx of repair of right rotator cuff Hx of repair of left rotator cuff history exacorporeal shock wave lithrotripsy Social History household members: spouse Smoking Status: Former smoker alcohol intake: current alcohol intake frequency: a few times a month substance use type: does not use ROS ROS ED Constitutional Constitutional ED: Denies chills or fever(s) Eyes Eyes: Denies blurry vision Cardiovascular Cardiovascular: Denies chest pain Respiratory/Chest Respiratory/Chest: Denies dyspnea Gastrointestinal Gastrointestinal: Reports abdominal pain and other Details: Chronic left groin pain Genitourinary Genitourinary ED: Denies dysuria Musculoskeletal Musculoskeletal: Reports back pain; Denies neck pain Neurologic Neurologic: Denies headache(s) Hematologic/Lymphatic Hematologic/Lymphatic: Denies easy bleeding EXAM Physical Exam Const Vital Signs: 08/23/25 18:10 08/23/25 18:22 Temperature 97.5 F L Temperature Source Temporal Pulse Rate 76 Respiratory Rate 18 Respiratory Effort Normal Respiratory Depth Normal Respiratory Pattern Normal Blood Pressure 117/58 L Blood Pressure Mean 77 Pulse Ox 100 Oxygen Delivery Method Room Air Room Air Positive well nourished and oriented x3 General Appearance ED: active and cooperative Orientation / Consciousness: awake and oriented to person Exam Limitations: no limitations HEENT Reports normocephalic, head/scalp atraumatic, moist mucous membranes, nasal mucous membranes and turbinates normal and oropharynx normal HEENT Narrative: Midface stable nontender. No nasal septal hematoma or deviation. normocephalic, normal to inspection and atraumatic Face and Sinus: normal facial exam Nose: external nose normal and nares normal External Ear: external ears normal Mouth ED: Yes oral and palatal mucosa normal, Yes lips normal and Yes tongue normal Mouth: oral and palatal mucosa normal, lips normal and tongue normal Throat: posterior oropharynx normal Eyes PERRL, EOMs intact bilaterally and conjunctivae normal General Eye ED: Yes normal appearance of both eyes Visual Acuity: acuity normal Eyelid: eyelids normal Conjunctiva: conjunctiva normal Sclera: sclera normal Cornea: cornea normal Pupil: PERRL and accommodation reflex normal EOM: EOM abnormal Neck full ROM Lymph Lymphatic: no lymphadenopathy noted Chest Wall inspection of chest normal Chest Narrative: No chest wall tenderness to palpation Chest: abnormal inspection of the chest Resp normal respiratory effort and normal air movement Effort and Inspection: able to speak in complete sentences and symmetric chest movement Auscultation: clear to auscultation bilaterally Cardio regular rate and regular rhythm Rate: regular rate Peripheral Pulses: pulses 2+ throughout GI normal to inspection, nondistended, normoactive bowel sounds Rectal Exam: deferred Back/Spine normal ROM and normal to inspection Back/Spine Narrative: Left paraspinal lumbosacral tenderness to palpation Cervical Spine: cervical ROM normal Extremity normal to inspection, full ROM and normal capillary refill Neuro oriented x3, CN's II-XII intact bilaterally, moves all extremities and no focal motor deficits Sensorium / Orientation: awake and alert Motor Exam: strength 5/5 throughout Psych mental status grossly normal Appearance: grossly normal and appropriate Speech: normal speech Skin no rashes or lesions noted MDM MDM MDM Narrative Medical decision making narrative: This is an 84-year-old male who presents with acute on chronic low back pain after falling backwards on a ground-level fall earlier today. Patient did hit his head, but is not anticoagulated and states he has not had any neck or head pain since the fall. He is just complaining of low back pain and some difficulty ambulating due to this. Patient was given 1 dose of oxycodone in the emergency department. CT of the lumbar spine was completed shows advanced multilevel degenerative changes but no acute displaced fracture or traumatic malalignment of the lumbar spine. On reevaluation patient's pain much more controlled and he was resting comfortably. He was requesting discharge home. I spoke with the patient as well as his and they feel that they can manage his pain and ambulation at home as he has a walker and a lift chair to go upstairs. I will discharge him with a short course of pain medication for this weekend as requested by his and then he will follow-up with his PCP on Tuesday, in 3 days. Return indications discussed. All questions answered. Patient discharged home. Radiography Diagnostic Testing: Clinical Impression(s) from Imaging Studies Lumbar Spine CT 08/23/25 18:34 IMPRESSION: 1. No displaced fracture or traumatic malalignment of the lumbar spine. Postoperative changes without evidence of hardware complication. 2. Advanced multilevel degenerative changes, better evaluated on recent MRI. 3. Calcification at the left ureteropelvic junction measuring 7 mm may represent a stone or vascular calcification. Reading Location: [id number] Discharge Plan Triage Chief Complaint: Fall ED Provider: Aislinn Najera Dx/Rx/DC Orders Clinical Impression: Low back pain, Fall at home Instructions: ED Back Pain (Acute or Chronic) Prescriptions: New oxycodone 5 mg capsule 5 mg PO Q8H PRN (Reason: pain) 2 Days Qty: 6 0RF No Action metronidazole 0.75 % cream 1 applic TOPICAL DAILY acetaminophen 500 MG tablet 1,000 mg PO PRN aspirin [Rika Low Dose Aspirin] 81 mg Tablet,Delayed Release (Dr/Ec) 81 mg PO QHS multivitamin Tablet 1 tab PO DAILY pantoprazole 40 mg Tablet,Delayed Release (Dr/Ec) 40 mg PO DAILY lisinopril 5 mg tablet 5 mg PO DAILY d-mannose Powder 1 ea PO DAILY Rx Instructions: 1/4 teaspoon on cereal each am. Dupixent Pen 300 mg/2 mL pen injector 300 mg subcut .COMPLEX Rx Instructions: 300 mg subcutaneously EVERY 8 WEEKS; donepezil 5 mg tablet 10 mg PO DAILY trazodone 100 mg tablet 100 mg PO QHS furosemide 20 mg tablet 20 mg PO DAILY memantine 10 mg tablet 10 mg PO BID methenamine hippurate 1 gram tablet 1 g PO BID sertraline 25 mg tablet 25 mg PO DINNER triamcinolone acetonide 1 applic topical DAILY PRN (Reason: itching) melatonin 5 mg tablet 5 mg PO QHS NewFlora 10 billion cell capsule 80 mmu cells PO DAILY guaifenesin [Mucinex] 600 mg tablet extended release 12hr 600 mg PO BID Trulance 3 mg tablet 3 mg PO DAILY Patient Comments: ON 12/13/24 BACLOFEN SUPPOSITORY 1 supp OTHER DAILY hydrochlorothiazide 12.5 mg tablet 12.5 mg PO DAILY nitrofurantoin monohyd/m-cryst [Macrobid] 100 mg capsule 100 mg PO Q12H 7 Days Qty: 14 0RF Rx Instructions: must administer with a meal/food polyethylene glycol 3350 [Miralax] 17 gram/dose powder 4 g PO DAILY sertraline [Zoloft] 25 mg tablet 25 mg PO LUNCH Rx Instructions: lunch ipratropium bromide 21 mcg (0.03 %) spray,non-aerosol INTRANASAL Patient Comments: [NO ORIGINAL SIG] Primary Care Provider: Francisco Bahena Referrals: Francisco Bahena MD [Primary Care Provider, Family Practice] Print Language: Panamanian Disposition Disposition: Home, Self Care Discharge Date/Time: 08/23/25 22:07
== END 2025-08-23 22:07 | disposition home or self-care (01) ==
PROVIDERS: Emergency Provider Emergency Medicine; PCP Family Medicine; Visit Provider Emergency Medicine
DX: M54.50 Low back pain, unspecified (principal); F03.90 Unspecified dementia, unspecified severity, without behavioral disturbance, psychotic disturbance, mood disturbance, and anxiety; G89.29 Other chronic pain; W18.39XA Other fall on same level, initial encounter; I12.9 Hypertensive chronic kidney disease with stage 1 through stage 4 chronic kidney disease, or unspecified chronic kidney disease; N18.2 Chronic kidney disease, stage 2 (mild); Z79.82 Long term (current) use of aspirin; Z79.899 Other long term (current) drug therapy; Z87.891 Personal history of nicotine dependence
CPT/HCPCS: 72131; 99282; A4216